=== PATIENT | female | born 1940 | race Caucasian/White ===

== ENCOUNTER 2018-09-07 09:33 | Day surgery (SDC) | payer MEDICARE, OTHER, SELFPAY ==
--- NOTE | 2018-08-31 01:35 | HP_ITS ---
Intake Vital Signs 08/31/18 Height 5 ft 5 in 08/31/18 Weight: 199 lb 08/31/18 Body Mass Index (BMI) 33.1 08/31/18 Blood Pressure 158/72 H 08/31/18 Blood Pressure Location Rt brachial 08/31/18 Blood Pressure Position Sitting 08/31/18 Respiratory Rate 14 08/31/18 Pulse Rate 59 L 08/31/18 Pulse Source Monitor 08/31/18 Temperature 97.7 F L 08/31/18 Temperature Source Oral 08/31/18 Pulse Ox 94 08/31/18 Oxygen Delivery Method room air 08/31/18 Body Mass Index (BMI) 35.4 Intake Visit Reasons: 6 mo f/u abd issue/medication Chief Complaint: Follow-up visit. Allergies ciprofloxacin [From Cipro] Allergy (Verified 12/28/17 13:35) Rash Penicillins [PCN] Allergy (Verified 12/28/17 13:35) Hives Sulfa (Sulfonamide Antibiotics) Allergy (Verified 12/28/17 13:35) Hives hydrocodone [From Vicodin] Adverse Reaction (Verified 12/28/17 13:35) Other lisinopril Adverse Reaction (Verified 12/28/17 13:35) cough meperidine [From Demerol] Adverse Reaction (Verified 12/28/17 13:35) Vomiting beta blockers Adverse Reaction (Uncoded 08/27/17 07:56) fatigue Medications Lorazepam [Ativan] 0.5 mg PO BID PRN PRN 05/13/16 [History Confirmed 08/31/18] aspirin 81 mg tablet,delayed release 81 mg PO QDAY 05/05/17 [History Confirmed 08/31/18] escitalopram 20 mg tablet 20 mg PO QDAY tab 06/10/17 [History Confirmed 08/31/18] omeprazole 20 mg tablet,delayed release 20 mg PO BID 08/27/17 [History Confirmed 08/31/18] losartan 100 mg tablet 100 mg PO DAILY #90 tab 05/30/18 [Rx Confirmed 08/31/18] diltiazem CD 240 mg capsule,extended release 24 hr 240 mg PO QHS #90 cap 07/21/18 [Rx Confirmed 08/31/18] flecainide 150 mg tablet 150 mg PO BID #180 tab 07/25/18 [Rx Confirmed 08/31/18] meloxicam 15 mg tablet 15 mg PO DAILY 08/31/18 [History Confirmed 08/31/18] [facility] Medical History Osteoarthritis (Acute) History of pacemaker (Acute) Anxiety (Acute) Daytime somnolence (Acute) Dysmetabolic syndrome X (Acute) Allergic rhinitis (Acute) Malignant melanoma of skin of trunk, except scrotum (Acute) HTN (hypertension) (Chronic) Paroxysmal atrial fibrillation (Chronic) Sick sinus syndrome (Chronic) Cardiac pacemaker in situ (Chronic 01/29/11) Carotid artery disease (Chronic) Surgical History History of left heart catheterization (LHC) (Chronic) History of total left hip replacement (Chronic 07/13/16) History of total right knee replacement (TKR) (Chronic ~08/2011) History of right hip replacement (Chronic ~2003) History of cholecystectomy (Chronic) History of total left knee replacement (TKR) (Chronic) Family History Grandfather Myocardial infarction Sudden cardiac Father Myocardial infarction CAD (coronary artery disease) CHF (congestive heart failure) Mother Myocardial infarction CAD (coronary artery disease) A-fib Brother A-fib CHF (congestive heart failure) Brother Cancer Son Diabetes Son Hypertension Social History Smoking Status: Never smoker alcohol intake: never substance use type: does not use caffeine: Yes what type of physical activity do you participate in: none seatbelt use: always HPI HPI HPI: MICHAEL MEIER, is a 78 F who presents to the office today for HPI HPI Surgical H&P: Yes HPI: MICHAEL MEIER, is a 78 F who presents to the office today for evaluation for esophagitis. Patient underwent an EGD in June 2017. She was noted to have some mild to severe esophagitis with no bleeding biopsies were negative for Palm's at that time. I was scheduling her to have another repeat EGD June of this year however she is showing up now to continue her follow-up. She still has a significant amount of reflux eructations she has no nausea or vomiting. She is currently on 20 mg of omeprazole a day. She is no longer on her Carafate. ROS General General: Yes weight change and fatigue; no appetite, colon cancer, breast cancer or weakness HEENT HEENT: No difficulty swallowing, eye injury, eye surgery, swollen glands or hoarseness Endo Endocrine: No thyroid disease, diabetes mellitus, thyroid cancer, Hair loss, heat intolerance or cold intolerance Skin Skin: No rash or changing moles Musc Musculoskeletal: Yes back problems and arthritis; no rheumatoid arthritis, gout or joint pain Cardio Cardiovascular: Yes pacemaker, atrial fibrillation and high blood pressure; no murmur, heart disease, heart attack, heart stent, palpitations, shortness of breat with exertion or chest pain Psych Psychiatric: Yes anxiety; no depression or hearing voices Resp Respiratory: No shortness of breath, Yes sleep apnea, No cough, No COPD, No asthma, No emphysema, No wheezing Gastro Gastrointestinal: Yes abdominal pain, Yes nausea or vomiting, Yes diarrhea, No constipation, No blood in stool, Yes acid reflux, Yes hemorrhoids, No ulcers, No gallbladder problem, No black,tarry stools Dirk Hematologic: Yes blood thinners, No blood disorders, No bleeding, No anemia, No blood clots Neuro Neurologic: No weakness Exam Const General: no acute distress, well developed, well hydrated Orientation: oriented to person, oriented to place, oriented to time [facility] Head: normocephalic, atraumatic Ears: external ears normal Mouth: moist mucous membranes Eyes Sclera: sclerae normal Pupils: normal by confrontation Neck Neck: no lymphadenopathy noted Neck mass: No Thyroid: thyroid normal, symmetrical Chest Chest palpation & inspection: normal inspection of the chest Resp Effort & Inspection: normal respiratory effort Auscultation: clear to auscultation bilaterally Percussion: percussion normal Cardio Rate: regular rate Rhythm: regular rhythm Heart Sounds: no murmurs GI Palpation: soft, no hepatosplenomegaly, no masses, nontender Rectal Exam: other Other: Rectal exam deferred. Extrem General: normal to inspection, no clubbing, cyanosis or edema Assessment & Plan Problems 1. Esophagitis K20.9 Plan I have discussed the above with the patient. I have offered the patient esophagogastroduodenoscopy for evaluation. I have explained the risks/benefits of the procedure and described the procedure. I have discussed the risks with the patient, including but not limited to: infection, bleeding, perforation of the GI tract requiring emergency surgery, inability to complete the procedure, injury to any internal organs, complications of anesthesia, etc. - the patient understands and agrees to proceed. I have answered all the patient's questions to the patient's satisfaction and the patient has no further questions. The patient has been given instructions for the colon cleansing preparation. Coding Level of Care Code Off vis,est,level 3 Diagnoses Esophagitis K20.9 08/31/18 1335 <Electronically signed by Ernst Morse MD> Date Ernst Morse MD I have re-examined the patient. There are no clinical changes since date of exam.
[2018-08-31 13:23] VITALS: BMI 33.1
[2018-09-07] VITALS (7 sets, daily range): BP systolic 126–146; BP diastolic 59–68; PULSE 60; RESP 16; TEMP 36.5–37; O2SAT 93–98; BMI 33.8
--- NOTE | 2018-09-07 | GASB_PTH ---
PATIENT: MICHAEL MEIER LOC: EN U#:[id number] AGE/SX: 78/F ROOM: RE09/07/[address]: Dr. Ernst Morse MD : 1940 BED: DIS: 09/07/2018 SPEC #: [id number] RECD: 09/07/18 14:35 STATUS: NIKHIL REMaureen #: [id number] DADA: 09/07/18 00:[address]: Ernst Morse DEPT: SURGICAL PATHOLOGY RECD BY: Gerardo Wagner ENTERED: 09/07/18 14:35 SP TYPE: Gastric Bx OTHR DR: Dr. Michael Puga, DO Tissues: Gastric mucous membrane Procedures: Surgery Specimen Level IV HEADER OPERATION: [place] [place] PRE-OP DIAGNOSIS: Esophagitis TISSUE SUBMITTED: Antral biopsy for H. pylori MICROSCOPIC DIAGNOSIS Antral biopsy: Mild gastritis. See microscopic description and comment. SJ:eric 09/08/18 COMMENT The results of immunohistochemistry for Helicobacter pylori will be reported separately ([id number]). MICROSCOPIC DESCRIPTION Slides are reviewed. The specimen shows fragments of gastric mucosa with chronic inflammatory cell infiltrates in the lamina propria consisting of lymphocytes and plasma cells, consistent with mild chronic gastritis. GROSS DESCRIPTION Received in fixative is one container labeled with the patient's name and designated antral biopsy. The specimen consists of one irregular fragment of light otto soft tissue that measures 0.7 x 0.2 x 0.1 cm. The specimen is totally submitted in one cassette. / SJ:rg 09/07/18 TC:5 CPT: 57766
--- NOTE | 2018-09-07 10:45 | IMM_PTH ---
PATIENT: MICHAEL MEIER LOC: EN U#:[id number] AGE/SX: 78/F ROOM: RE09/07/[address]: Dr. Ernst Morse MD : 1940 BED: DIS: 09/07/2018 SPEC #: [id number] RECD: 09/08/18 09:57 STATUS: NIKHIL REMaureen #: [id number] DADA: 09/07/18 10:[address]: Ernst Morse DEPT: IMMUNOHISTOCHEMISTRY RECD BY: Ritika Martin ENTERED: 09/08/18 09:58 SP TYPE: IMMUNO OTHR DR: Dr. Michael Puga DO Tissues: Stomach, NOS Procedures: H Pylori (initial) PHYSICIAN & INSTITUTION [place] [id number] SPECIMEN INFORMATION: Tissue Source: Antral biopsy Clinical Info: Esophagitis Specimen Number: [id number] CPT code: 48015 METHODOLOGY: Deparaffinized sections of prefer/formalin-fixed tissue or PAP/DQ stained slides are incubated with monoclonal/polyclonal antibodies/oligonucleotide probes. Localization is made via biotin free immunoperoxidase method. Appropriate controls are performed and reacted as expected. Results on target cell population are indicated in the following table: RESULTS: ANTIBODY / CLONE RESULT H Pylori (polyclonal) negative These tests were developed and their performance characteristics determined by [facility]. They may not have been cleared or approved by the U.S. Food and Drug Administration. The FDA has determined that such clearance or approval is not necessary. INTERPRETATION: Antral biopsy: Negative for Helicobacter pylori organisms. SJ:eric 09/08/18
--- NOTE | 2018-09-07 11:05 | OP.ENDO_ITS ---
09/07/2018 Michael Puga [address] [id number] Re : Upper GI endoscopy procedure for Niurka Calderonyuko Dear Dr. Puga This procedure was performed on Friday, September 07, 2018. My impressions and recommendations are as follows: Impressions : - Normal esophagus. - Small hiatal hernia. No specimens collected. - Z-line regular, 40 cm from the incisors. - Normal examined duodenum. No specimens collected. - Erythematous mucosa in the prepyloric region of the stomach. Biopsied. - The examination was otherwise normal. Recommendations : - Await pathology results. - Repeat upper endoscopy in 3 years for surveillance. - Return to my office in 1 week. - Continue aspirin at prior dose. My findings are described in the full procedure note, which is enclosed. If I can be of further assistance, please feel free to contact me at Doctor phone number(s): , Fax: [phone], Work: . Sincerely, MD rEnst Ford MD 09/07/2018 11:05:48 AM This report has been signed electronically.
== END 2018-09-07 11:58 | disposition home or self-care (01) ==
LOC: EN 09:34 → AC 09:36
PROVIDERS: Family Provider Student in an Organized Health Care Education/Training Program; PCP Student in an Organized Health Care Education/Training Program; Referring Provider Surgery; Visit Provider Surgery
PROC: 0DJ08ZZ Inspection of Upper Intestinal Tract, Via Natural or Artificial Opening Endoscopic (ICD-10-PCS; CPT 43235; principal; 2018-09-07 10:40)
DX: K29.70 Gastritis, unspecified, without bleeding (principal); K44.9 Diaphragmatic hernia without obstruction or gangrene; K21.0 Gastro-esophageal reflux disease with esophagitis; I10 Essential (primary) hypertension; I48.0 Paroxysmal atrial fibrillation; Z95.0 Presence of cardiac pacemaker; Z79.82 Long term (current) use of aspirin
CPT/HCPCS: 43239; 88305; 88342; J7120

== ENCOUNTER 2018-12-03 12:45 | Observation (INO) | payer MEDICARE, OTHER, SELFPAY ==
[2018-09-07 09:49] VITALS: BMI 33.8
[2018-12-03] VITALS (9 sets, daily range): BP systolic 140–180; BP diastolic 74–88; PULSE 59–63; RESP 14–17; TEMP 36.4–36.7; O2SAT 94–98; BMI 33.3
--- NOTE | 2018-12-03 13:04 | CT_ITS ---
STUDY: CT BRAIN WITHOUT CONTRAST REASON FOR EXAM: Female, 78 years old. APHASIA-symptoms improving since 0530 RADIATION DOSAGE (If Supplied By Facility): CTDIvol = ( 44.99 ) mGy, DLP = ( 796.11 ) mGycm TECHNIQUE: Transaxial CT imaging of the brain was performed without administration of intravenous contrast material. Individualized dose optimization techniques were used for this CT. COMPARISON: No relevant priors. FINDINGS: Normal size ventricles and extra-axial spaces for the patient's age. Normal white matter tracts of the cerebral hemispheres. Normal basal ganglia and thalami. Normal brainstem. Normal cerebellum. There is no intracranial hemorrhage. There are no findings of an acute ischemic infarction. Normal visualized paranasal sinuses. CT/Brain/Head without Contrast IMPRESSION: No acute intracranial abnormality Electronically Signed: Brook Wong MD at 13:44 EDT Tel , Service support ,
--- NOTE | 2018-12-03 13:05 | EKG12_ITS ---
Test Reason : NEURO Blood Pressure : / mmHG Vent. Rate : 060 BPM Atrial Rate : 060 BPM P-R Int : 244 ms QRS Dur : 110 ms QT Int : 466 ms P-R-T Axes : 000 003 044 degrees QTc Int : 466 ms Atrial-paced rhythm with prolonged AV conduction Abnormal ECG Confirmed by RAYMUNDO DEAN ([id number]), movie editor SUSIE COY ([id number]) on 12/07/2018 3:28:16 PM Referred By: Hayley Jerome Confirmed By:RAYMUNDO DEAN
--- NOTE | 2018-12-03 13:09 | ED.DCSUM_ITS ---
History of Present Illness <Nahum Melo - Last Filed: 12/03/18 14:42> Informant: Patient, Family Onset: Today Current Severity: Mild Maximum Severity: Mild Narrative: Niurka is a 78-year female who tripped this morning and fell. She denies hitting her head or loss of conscious. This was at 530 this morning and she called her daughters and they noted her to have slurred speech. She states she usually takes them but she cannot find their numbers which is unusual for her. Her chief complaint now is that her speech is slow and she has trouble remembering things. 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 She is not on blood thinners but does have a pacemaker for A. fib. Denies headache or dizziness or focal weakness or paresthesia. She did noted blurred vision to both eyes at midnight when she went to bed. Prior similar symptoms: No Recent Illness/Hospitalization: No <Lisa Eli - Last Filed: 12/03/18 15:00> Chief Complaint: Neuro S/Sx Past Medical History <Nahum Melo - Last Filed: 12/03/18 14:42> Surgical History: appendectomy, cholecystectomy, hysterectomy, tonsillectomy, - - Excision of melanoma, bilateral total knee replacements in 2009, right total hip in 2003 and left total hip recently in 2017. Smoking Status: Never smoker <Lisa Eli - Last Filed: 12/03/18 15:00> - Allergies and Home Meds Allergies/Adverse Reactions: Allergies ciprofloxacin [From Cipro] Allergy (Verified 09/15/18 13:38) Rash Penicillins [PCN] Allergy (Verified 09/15/18 13:38) Hives Sulfa (Sulfonamide Antibiotics) Allergy (Verified 09/15/18 13:38) Hives hydrocodone [From Vicodin] Adverse Reaction (Verified 09/15/18 13:38) Other lisinopril Adverse Reaction (Verified 09/15/18 13:38) cough meperidine [From Demerol] Adverse Reaction (Verified 09/15/18 13:38) Vomiting beta blockers Adverse Reaction (Uncoded 08/27/17 07:56) fatigue Primary Care Physician: Michael Puga DO [Primary Care Provider] - Review of Systems General: Denies: Chills, Fever Eyes: Reports: Visual changes - bilaterally - Around midnight she noticed wavy vision to both eyes. When she awoke this morning at 530 it had resolved.. Denies: Blurred vision - left, Blurred vision - right Cardiovascular: Denies: Chest pain, Palpitations Respiratory: Denies: Dyspnea, Cough, Sputum Gastrointestinal: Denies: Abdominal pain, Nausea, Vomiting Genitourinary: Denies: Dysuria, Hematuria Musculoskeletal: Denies: Myalgias, Arthralgias Neurological: Reports: - - There is no evidence of slurred speech here. NIH score was 1 4 mild expressive aphasia. Some of her answers were delayed this took her longer to think of her response.. There is no unilateral weakness appreciated.. Denies: Headache, Weakness, Parasthesia, Numbness <Lisa Eli - Last Filed: 12/03/18 15:00> Physical Exam Vital Signs/Narrative: Vital Signs Temp Pulse Resp BP Pulse Ox 12/03/18 14:12 60 15 167/76 H 97 12/03/18 12:55 142/80 H 12/03/18 12:47 98.0 F 60 17 153/83 H 98 <Nahum Melo - Last Filed: 12/03/18 14:42> Vital Signs/Narrative: Vital Signs Temp Pulse Resp BP Pulse Ox 12/03/18 12:55 142/80 H 12/03/18 12:47 98.0 F 60 17 153/83 H 98 Inital Vital Signs reviewed: Yes General: Well nourished, Well developed Head: Normocephalic, Atraumatic Eyes: Perrl, EOMI, Pale conjunctiva ENT: Moist mucous membranes, No rhinorrhea, Nasal congestion, Sinus tenderness Cardiovascular: Regular rate, Regular rhythm, No murmurs Respiratory: No distress, CTA bilaterally Abdomen: Soft, Nontender, Nondistended Back: Nontender, Normal Inspection Extremities: Nontender, No edema. Negative for: Tenderness Skin: Normal color, No rash Neurological: Alert, Oriented x3, Cranial nerves II-XII grossly intact, Normal Strength. Negative for: Confused, Lethargic, Parasthesia, Weakness, Left side facial droop - Some of her responses are delayed but her speech is clear and there was no unilateral weakness. NIH score equals 1 for mild expressive aphasia, Right side facial droop Psychological: Normal affect, Normal Mood <Lisa Eli - Last Filed: 12/03/18 15:00> Diagnostic/Tx/Re-eval - Medical Decision Making Evaluated this patient with our DENTAL RESIDENT. 78-year-old female with reported slurred speech and dysarthria this morning. No prior history of a TIA or CVA. She does have a history of a pacemaker and history of prior A. fib but currently on no anticoagulation. Currently she states she is back to her baseline. And her speech is resolved. Elderly female no acute distress. Vital signs are stable. HEENT exam unremarkable. Normal speech. No facial droop. Tongue midline. Lungs clear to auscultation. Heart paced rhythm. Abdomen soft and nontender. Extremities moves all 4. Neurovascular intact. Equal symmetrical 5 out of 5 anesthesiologist physician strength. Dorsi plantarflexion intact. Neurologically she is awake and alert. She has essential tremors in both hands. But her NIH score currently is 0. Stroke work-up was basically unremarkable. Discussed with the patient. She is comfortable being admitted here for further work-up for possible TIA. I also discussed this with the hospitalist and the patient will be admitted to the PCU. Impression: 1. Dysarthria and slurred speech resolved (TIA) <Nahum Melo - Last Filed: 12/03/18 14:42> CT head showed no acute process per radiology. - EKG Initial EKG Interpretation: - - EKG atrial paced rhythm with prolonged AV conduction Ventricular rate is 60 LA interval is 244 QRS duration is 110 QT/QTc 466/466 No acute changes from May 2017. No acute STEMI or ectopy. - Medical Decision Making Because of the slurred speech and dysarthria she had a stroke work-up. Her NIH score was 1 and she was not a candidate for TPA because her symptoms were already improving. She is not on any blood thinner other than baby aspirin daily. She complains of being anxious and she was given 0.5 of lorazepam by mouth as she usually takes this at home. She did pass a bedside swallow test. She remained neurologically intact and her mild expressive aphasia resolved. Laboratory tests and EKG are unremarkable as well. Hospitalist was notified and patient will be admitted to continue her stroke work-up. Impression dysarthria and reported slurred speech resolved <Lisa Eli - Last Filed: 12/03/18 15:00> ED Disposition <Nahum Melo - Last Filed: 12/03/18 14:42> <Lisa Eli - Last Filed: 12/03/18 15:00> - Plan for ED Patient: Referrals: Michael Puga DO [Primary Care Provider] -
[2018-12-03 13:21] LABS: Bedside Glucose 92 mg/dL (70-110)
[2018-12-03 13:29] LABS: Absolute Lymphocyte Count 1.29 X10^3/uL (0.83-4.51); Basophil# 0.04 X10^3/uL; Basophil% 0.5 % (0-1); Eosinophil# 0.09 X10^3/uL; Eosinophils% 1.1 % (0-5); Hematocrit 42.9 % (37-47); Hemoglobin 14.4 g/dL (12.0-15.0); Lymphocyte # 1.29 X10^3/ul (4.0); Lymphocyte % 15.8 % (19-41); Mean Corp Hgb Conc 33.6 g/dL (32-36); Mean Corpuscular Hgb 29.7 pg (27.0-32.0); Mean Corpuscular Volume 88.5 fL (81-99); Mean Platelet Vol. 11.1 fl (6.2-12.0); Monocyte% 8.6 % (0-10); NRBC Flagged by Analyzer 0 % (0-5); Neutrophil % 73.8 % (47-70); Platelet Count 214 K/mm3 (150-450); RBC Distribution Width CV 13.2 % (11.6-14.6); RBC Distribution Width SD 43.1 fl (35.1-43.9); Red Blood Count 4.85 M/mm3 (4.2-5.4); White Blood Count 8.1 K/mm3 (4.4-11.0)
[2018-12-03 13:36] LABS: Partial Thromboplast Time 27.2 Seconds (24.1-36.2); Prothrombin Time (Protime)PT. 13.4 SECONDS (11.7-14.9)
[2018-12-03 13:42] LABS: Anion Gap 7 (5-15); BUN 15 mg/dL (7-18); BUN/Creat Ratio 22.4 RATIO (10-20); Calcium,Total 8.9 mg/dL (8.5-10.1); Chloride 105 mmol/L (98-107); Creatinine, Serum 0.67 mg/dL (0.55-1.02); EST Glomerular Filtration Rate 91 mL/min (>60); Est Glom Filt Rate - Afr Amer 110 mL/min (>60); Estimated Creatinine Clearance 42.39 ml/min; Glucose 96 mg/dL (74-106); Potassium 3.8 mmol/L (3.5-5.1); Sodium Level 139 mmol/L (136-145)
[2018-12-03] MEDS: LORazepam 0.5 MG Tablet PO (14:10)
--- NOTE | 2018-12-03 14:40 | HP.PCM_ITS ---
History of Present Illness Date of Admission: 12/03/18 Chief Complaint: difficulty finding words The patient is a 78 year old F with an extensive past medical history as listed which includes paroxysmal A. fib and sick sinus syndrome status post pacemaker. Patient was admitted through the ED on 12/03/2018 with a complaint of difficulty finding words since this morning. Patient also states that she has chronic balance problems and sustained a fall today after tripping over something. She notices that she was having difficulty finding words to say what she wanted to say. She also complained of blurred vision but states this is chronic due to an eye infection that she had about a few weeks ago. She denied any numbness or tingling but noted that she had been having increasing tremors of her upper extremities which had been going on for the past few weeks. Review of systems otherwise negative. 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 Review of systems otherwise negative. Vitals only significant for mildly elevated blood pressure of 167/76. CBC was unremarkable and BMP was also unremarkable. Brain CT was negative for any acute intracranial pathology. Of note, patient is due to have her pacemaker checked this month. She has been admitted to be managed for TIA. [] Past Medical History Past Medical History (Chronic Problems): Chronic Problems (Last Updated 09/15/18 @ 13:40 by Gloria Vivra) History of left heart catheterization (LHC) (Chronic) 05/2011 History of total left hip replacement (Chronic 07/13/16) History of total right knee replacement (TKR) (Chronic ~08/2011) History of right hip replacement (Chronic ~2003) 2003; 2004 History of cholecystectomy (Chronic) History of total left knee replacement (TKR) (Chronic) Depression (Chronic) HTN (hypertension) (Chronic) Paroxysmal atrial fibrillation (Chronic) Sick sinus syndrome (Chronic) Cardiac pacemaker in situ (Chronic 01/29/11) Carotid artery disease (Chronic) Medical History: Medical History (Last Updated 09/15/18 @ 13:40 by Gloria Vivar) Osteoarthritis (Acute) M19.90 History of pacemaker (Acute) Z95.0 Anxiety (Acute) F41.9 Daytime somnolence (Acute) R40.0 Dysmetabolic syndrome X (Acute) E88.81 Allergic rhinitis (Acute) J30.9 Malignant melanoma of skin of trunk, except scrotum (Acute) C43.59 HTN (hypertension) (Chronic) I10 Paroxysmal atrial fibrillation (Chronic) I48.0 Sick sinus syndrome (Chronic) I49.5 Cardiac pacemaker in situ (Chronic) Onset Date: 01/29/11 Z95.0 Carotid artery disease (Chronic) I77.9 Gastritis Onset Date: ~09/07/18 K29.70 Allergies ciprofloxacin [From Cipro] Allergy (Verified 09/15/18 13:38) Rash Penicillins [PCN] Allergy (Verified 09/15/18 13:38) Hives Sulfa (Sulfonamide Antibiotics) Allergy (Verified 09/15/18 13:38) Hives hydrocodone [From Vicodin] Adverse Reaction (Verified 09/15/18 13:38) Other lisinopril Adverse Reaction (Verified 09/15/18 13:38) cough meperidine [From Demerol] Adverse Reaction (Verified 09/15/18 13:38) Vomiting beta blockers Adverse Reaction (Uncoded 08/27/17 07:56) fatigue Home Medications: Ambulatory Orders Medication Instructions Recorded Lorazepam [Ativan] 0.5 mg PO BID PRN PRN 05/13/16 aspirin 81 mg tablet,delayed 81 mg PO QDAY 05/05/17 release escitalopram 20 mg tablet 20 mg PO QDAY tab 06/10/17 omeprazole 20 mg tablet,delayed 20 mg PO BID 08/27/17 release losartan 100 mg tablet 100 mg PO DAILY #90 tab 05/30/18 diltiazem CD 240 mg 240 mg PO QHS #90 cap 07/21/18 capsule,extended release 24 hr flecainide 150 mg tablet 150 mg PO BID #180 tab 07/25/18 meloxicam 15 mg tablet 15 mg PO PRN PRN 08/31/18 Surgical History: Surgical History (Last Updated 09/15/18 @ 13:39 by Gloria Vivar) History of left heart catheterization (LHC) (Chronic) Z98.890 05/2011 History of total left hip replacement (Chronic) Onset Date: 07/13/16 Z96.642 History of total right knee replacement (TKR) (Chronic) Onset Date: ~08/2011 Z96.651 History of right hip replacement (Chronic) Onset Date: ~2003 Z96.641 2003; 2004 History of cholecystectomy (Chronic) Z98.890, Z90.49 History of total left knee replacement (TKR) (Chronic) Z96.652 History of esophagogastroduodenoscopy (EGD) Onset Date: ~09/07/18 Z98.890 Surgical History: appendectomy, cholecystectomy, hysterectomy, tonsillectomy, - - Excision of melanoma, bilateral total knee replacements in 2009, right total hip in 2003 and left total hip recently in 2017. 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 Smoking Status: Never smoker - *Family History Maternal Family History: Family History (Last Reviewed 09/15/18 @ 13:39 by Gloria Vivar) Grandfather Myocardial infarction Sudden cardiac Father Myocardial infarction CAD (coronary artery disease) CHF (congestive heart failure) Mother Myocardial infarction CAD (coronary artery disease) A-fib Brother A-fib CHF (congestive heart failure) Brother Cancer Son Diabetes Son Hypertension Review of Systems Constitutional: Denies: Chills, Fever, Malaise, Weakness, Weight Change, Fatigue Eyes: Reports: Blurred vision - due to eye infection and has been going on for a week now HEENT: Denies: Head Aches, Sinus Congestion, Sinus Drainage Cardiovascular: Denies: Chest Pain, Chest Pressure, Palpitations Respiratory: Denies: Cough, Shortness of Breath, Shortness of breath at rest, Sputum production Gastrointestinal: Denies: Abdominal Pain, Nausea, Vomiting Genitourinary: Denies: Dysuria Musculoskeletal: Denies: Joint Pain, Joint Tenderness Skin: Denies: Rash, Wounds Neurological: Reports: Balance problems - chronic, Change in Speech - difficulty finding words, Tremor. Denies: Double vision, Confusion, Focal weakness, Numbness, Tingling Psychiatric: Reports: Homicidal Ideations Hematologic/ Lymphatic: Denies: Easy Bruising, Easy Bleeding VTE Information - Inpt Only VTE Present on Admission: No VTE Pharm Prophylaxis ordered?: Yes - Physical Exam General: Alert, Oriented x3, Cooperative, No apparent distress HEENT: Atraumatic, PERRLA, EOMI, Normocephalic Oral: Moist Mucosa Neck: Supple, No JVD, Negative Carotid Bruits Lungs: Clear to auscultation, Normal air movement, No rhonchi, No wheeze, No rales Cardiovascular: Regular rate, Regular Rhythm, Normal S1, Normal S2, No murmurs Abdomen: Bowel Sounds Present, Soft, Non Tender, Non-Distended, No Hepato- splenomegaly Extremities: No clubbing, No cyanosis, No edema, Capillary Refill Less than 3 Seconds Skin: No rashes, No breakdown Musculoskeletal: No Tenderness to Palpation of Joints or Extremities Lymphatic: No Cervical, Supraclavicular, or Inguinal Adenopathy Neurological: Cranial nerves II-XII grossly intact, Sensory exam intact to light touch and pain, - - mild expressive aphasia. Mild right foot drop Psych/Mental Status: Normal Affect, Appropriate, Alert and oriented to time, place, person, mood and affect Vital Signs Temp Pulse Resp BP Pulse Ox 98.0 F 60 15 167/76 H 97 12/03/18 12:47 12/03/18 14:12 12/03/18 14:12 12/03/18 14:12 12/03/18 14:12 Oxygen Delivery Method Room Air Weight: 200 lb 6.403 oz Body Mass Index (BMI) 33.3 Finger Stick Blood Glucose 92 Laboratory Tests Past 24 Hrs 12/03/18 12/03/18 12/03/18 12:48 12:48 12:48 WBC 8.1 RBC 4.85 Hgb 14.4 Hct 42.9 MCV 88.5 MCH 29.7 MCHC 33.6 RDW Std Deviation 43.1 RDW Coeff of Chandu 13.2 Plt Count 214 MPV 11.1 Immature Gran % (Auto) 0.200 Neut % (Auto) 73.8 H Lymph % (Auto) 15.[address] [facility] % (Auto) 8.6 Eos % (Auto) 1.1 Baso % (Auto) 0.5 Absolute Neuts (auto) 6.0 Absolute Lymphs (auto) 1.29 Nucleated RBC % 0 PT 13.4 INR 1.0 APTT 27.2 Sodium 139 Potassium 3.8 Chloride 105 Carbon Dioxide 27.0 Anion Gap 7 BUN 15 Creatinine 0.67 Estim Creat Clear Calc 42.39 Est GFR (MDRD) Af Amer 110 Est GFR (MDRD) Non-Af 91 BUN/Creatinine Ratio 22.4 H Glucose 96 Calcium 8.9 POC Glucose 12/03/18 12:58 POC Glucose [address] 12/03/18 13:04 IMPRESSION: No acute intracranial abnormality Electronically Signed: Brook Wong MD at 13:44 EDT Tel , Service support , Assessment/Plan All Active Problems (Last Updated 09/15/18 @ 13:40 by Gloria Vivar) Osteoarthritis (Acute) History of pacemaker (Acute) Anxiety (Acute) Daytime somnolence (Acute) Dysmetabolic syndrome X (Acute) Allergic rhinitis (Acute) Malignant melanoma of skin of trunk, except scrotum (Acute) Hyperlipidemia (Acute) Shortness of breath (Acute) Abnormal electrocardiogram (Acute) Hypokalemia (Acute) FH: sudden cardiac (SCD) (Acute) Family history of hypertension (Acute) Colitis (Acute) 78 y/o patient admitted with a complaint of expressive aphasia 1. TIA * admitted with difficulty finding words * NIHSS- * CT brain was negative * EKG showed paced rhythm * admit to PCU with telemetry * neurochecks * swallow evaluation * PO aspirin 81mg daily * check lipid panel and A1C * patient counselled that there is no neurology coverage over the weekend. However, she wants to stay in [place]; she understands that if she develops an acute stroke, she will need to be transferred to a tertiary care center * keep BP<130/80 * PT/OT consult * 2D echo * patient cannot have MRI o/a of the pacemaker * 2. PAroxysmal afib: rate controlled. On cardizem and flecainide. NOt on anticoagulation due to history of GI Bleeds, per last cardiology note. 3. Hyerptension: on losartan. IV hydralazine prn 4. History of sick sinus syndrome: s/p pacemaker. Last pacemaker check was in 07/19. Says she is due to have pacemaker check this month. 5. Depression and anziety: on lexapro and lorazepam DVT prophylaxis: heparin Code status: full code. * Patient counseled extensively about different types of CODE STATUS including full code, DNR CCA and DNR CCA. Patient elects to be full code. Total [id number] time 17 minutes. Code Visit OBSV E&M: 71038 Initial observation care L3 Procedures: 24252 Advncd Care Plan 30 Min
--- NOTE | 2018-12-03 14:44 | NURSING ---
CHERRI ROBLES ESTHER
--- NOTE | 2018-12-03 15:31 | CT_ITS ---
STUDY: CTA HEAD AND NECK WITH CONTRAST REASON FOR EXAM: Female, 78 years old. TIA RADIATION DOSAGE (If Supplied By Facility): CTDIvol = ( 20.12 ) mGy, DLP = ( 745.86 ) mGycm TECHNIQUE: CT angiography was performed with a multi-detector CT scanner. Data acquisition was obtained from the skull base through the vertex following intravenous administration of 100CC IV/Oral Isovue 370. MIP images were reconstructed from the axial data set. Post-processing of the angiographic images was performed, with multiplanar reformation and 3D reconstruction. Individualized dose optimization techniques were used for this CT. COMPARISON: No relevant priors. FINDINGS: Normal bilateral petrous carotid arteries. Normal right cavernous carotid artery with a normal supraclinoid bifurcation. Normal left cavernous carotid artery with a normal supraclinoid bifurcation. Normal right A1 segments of the anterior cerebral artery. Normal left A1 segments of the anterior cerebral artery. Normal intact anterior communicating artery (ACOM). Normal bilateral A2 segments of the anterior cerebral arteries. Normal right M1 and M2 segments of the middle cerebral arteries, with a normal M1 bifurcation. Normal left M1 and M2 segments of the middle cerebral arteries, with a normal M1 bifurcation. 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 Normal left posterior communicating artery (PCOM). There is a small atretic right vertebral artery with a dominant left vertebral artery. Normal basilar artery with a normal basilar bifurcation. The visualized bilateral superior cerebellar (SCA) arteries are normal. Normal bilateral P1, P2 and visualized P3 segments of the posterior cerebral arteries. There is no demonstrated aneurysm of the hoh of [place]. There is no demonstrated abnormality of the visualized brain. AORTIC ARCH: Normal visualized aortic arch. Normal origins of the brachiocephalic, left common carotid, and left subclavian arteries. RIGHT CAROTID ARTERIES: Normal right common carotid artery (CCA). Normal right common carotid bulb. Normal origin of the right internal carotid (ICA) artery without a hemodynamically significant stenosis. Normal visualized cervical portion of the right internal carotid artery. Normal origin of the right external carotid artery (ECA). LEFT CAROTID ARTERIES: Normal left common carotid artery (CCA). Normal left common carotid bulb. Normal origin of the left internal carotid (ICA) artery without a hemodynamically significant stenosis. Normal visualized cervical portion of the left internal carotid artery. Normal origin of the left external carotid artery (ECA). VERTEBRAL ARTERIES: There is enhancement within the bilateral vertebral arteries with a small right vertebral artery, and a dominant left vertebral artery. CT/CTA Head AND Neck W/ Contrast IMPRESSION: Normal CTA Head and neck with contrast. Electronically Signed: Gilberto Nesbitt MD at 17:07 EDT , Service support ,
[2018-12-03 16:00] LABS: Cholesterol 198 mg/dL (200); High Density Lipoprotein 75 mg/dL; Triglycerides 70 mg/dL; Very Low Density Lipoprotein 14 mg/dL (5-40)
[2018-12-03 16:22] LABS: Hemoglobin A1c 5.2 % (4.2-6.3)
[2018-12-03] MEDS: dilTIAZem CD 240 MG Capsule PO (21:25)
[2018-12-03] MEDS: Pantoprazole Sodium 20 MG Tablet PO (21:25)
[2018-12-03] MEDS: Flecainide 150 MG Tablet PO (21:25)
[2018-12-03] MEDS: Escitalopram Oxalate 20 MG Tablet PO (21:32)
[2018-12-04] MEDS: Gabapentin 300 MG Capsule PO ×2 (00:19→05:43)
[2018-12-04 00:34] VITALS: BP 168/77; PULSE 61; RESP 15; TEMP 36.5; O2SAT 95
[2018-12-04 02:01] VITALS: BMI 33.3
[2018-12-04 03:00] VITALS: PULSE 60
[2018-12-04 04:30] VITALS: BP 121/56; PULSE 60; RESP 15; TEMP 36.6; O2SAT 96
[2018-12-04 05:37] LABS: Absolute Lymphocyte Count 1.53 X10^3/uL (0.83-4.51); Absolute Neutrophil Count 4.6 X10^3/uL (2.0-7.7); Basophil# 0.06 X10^3/uL; Basophil% 0.9 % (0-1); Eosinophil# 0.13 X10^3/uL; Eosinophils% 1.8 % (0-5); Hematocrit 39.3 % (37-47); Hemoglobin 13.2 g/dL (12.0-15.0); Lymphocyte # 1.53 X10^3/ul (4.0); Lymphocyte % 21.7 % (19-41); Mean Corp Hgb Conc 33.6 g/dL (32-36); Mean Corpuscular Hgb 30.1 pg (27.0-32.0); Mean Corpuscular Volume 89.7 fL (81-99); Mean Platelet Vol. 10.5 fl (6.2-12.0); Monocyte# 0.73 X10^3/uL; Monocyte% 10.4 % (0-10); NRBC Flagged by Analyzer 0 % (0-5); Neutrophil # 4.57 X10^3/uL (2.7-7.7); Neutrophil % 64.9 % (47-70); Platelet Count 179 K/mm3 (150-450); RBC Distribution Width CV 13.4 % (11.6-14.6); Red Blood Count 4.38 M/mm3 (4.2-5.4)
[2018-12-04 05:52] LABS: Anion Gap 7 (5-15); BUN 12 mg/dL (7-18); BUN/Creat Ratio 23.1 RATIO (10-20); Calcium,Total 8.4 mg/dL (8.5-10.1); Chloride 107 mmol/L (98-107); Creatinine, Serum 0.52 mg/dL (0.55-1.02); EST Glomerular Filtration Rate 121 mL/min (>60); Est Glom Filt Rate - Afr Amer 147 mL/min (>60); Estimated Creatinine Clearance 42.39 ml/min; Glucose 93 mg/dL (74-106); Potassium 3.9 mmol/L (3.5-5.1); Sodium Level 142 mmol/L (136-145)
[2018-12-04 07:00] VITALS: PULSE 60
[2018-12-04] MEDS: Flecainide 150 MG Tablet PO (08:11)
[2018-12-04] MEDS: Pantoprazole Sodium 20 MG Tablet PO (08:11)
[2018-12-04] MEDS: Losartan Potassium 100 MG Tablet PO (08:11)
[2018-12-04] MEDS: Aspirin E.C. 81 MG Tablet PO (08:11)
[2018-12-04 09:05] VITALS: BP 132/63; PULSE 60; RESP 16; TEMP 36.7; O2SAT 95
--- NOTE | 2018-12-04 10:35 | PCM.DC ---
You will use the following diet at home:: Cardiac Your food should be the consistency of: Regular Your liquids should be the consistency of: Regular/Thin Discharge Activity: Return to Normal Activity Weight Bearing Status: Weight bearing as tolerated Call your doctor if you observe: Numbness or Tingling, Dizziness, Fainting spells, Swelling in the ankles, - - change in speech Instructions: What Is a TIA? Additional Instructions: to have 2D echo tomorrow; if you have any bleeding per rectum or vomit blood or dark coffee ground substance, to stop eliquis and go to the ED. Allergies/Adverse Reactions: Allergies ciprofloxacin [From Cipro] Allergy (Verified 09/15/18 13:38) Rash Penicillins [PCN] Allergy (Verified 09/15/18 13:38) Hives Sulfa (Sulfonamide Antibiotics) Allergy (Verified 09/15/18 13:38) Hives hydrocodone [From Vicodin] Adverse Reaction (Verified 09/15/18 13:38) Other lisinopril Adverse Reaction (Verified 09/15/18 13:38) cough meperidine [From Demerol] Adverse Reaction (Verified 09/15/18 13:38) Vomiting beta blockers Adverse Reaction (Uncoded 08/27/17 07:56) fatigue Medications to take at Discharge Lorazepam [Ativan] 0.5 mg PO BID PRN PRN 05/13/16 aspirin 81 mg tablet,delayed release 81 mg PO QDAY 05/05/17 escitalopram 20 mg tablet 20 mg PO QDAY tab 06/10/17 omeprazole 20 mg tablet,delayed release 20 mg PO BID 08/27/17 losartan 100 mg tablet 100 mg PO DAILY #90 tab 05/30/18 diltiazem CD 240 mg capsule,extended release 24 hr 240 mg PO QHS #90 cap 07/21/18 flecainide 150 mg tablet 150 mg PO BID #180 tab 07/25/18 Gabapentin [Neurontin] 300 mg PO TID 12/03/18 Apixaban [Eliquis] 5 mg PO BID #60 tab 12/04/18 The following prescriptions were given: Apixaban [Eliquis] 5 mg PO BID #60 tab Transmission Status: Pending to [facility] [id number] Orders to be completed after discharge: Echo Complete [ECHO] Time Frame: 12/05/18, Location: None Selected Primary Care Physician: Michael Puga DO [Primary Care Provider] - Please follow up with your Primary Care Physician in: within 1-2 weeks Test Results: Test results from this visit will be discussed in further detail at your follow-up appointment, if applicable. Please Follow Up With: Osvaldo Lyles MD When: 1-2 weeks; call office for appointment Please Follow Up With: Alfa Bermeo MD When: 1-2 weeks; please call office for appointment Proposed Discharge Date: 12/04/18
--- NOTE | 2018-12-04 10:38 | PCM.DC.SUM ---
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 knee replacement (TKR) (Chronic ~08/2011) History of right hip replacement (Chronic ~2003) 2003; 2004 History of cholecystectomy (Chronic) History of total left knee replacement (TKR) (Chronic) Depression (Chronic) HTN (hypertension) (Chronic) Paroxysmal atrial fibrillation (Chronic) Sick sinus syndrome (Chronic) Cardiac pacemaker in situ (Chronic 01/29/11) Carotid artery disease (Chronic) Hospital Course and Treatment Imaging Results: Diagnostic Data Brain CT 12/03/18 13:04 IMPRESSION: No acute intracranial abnormality Electronically Signed: Brook Wong MD at 13:44 EDT Tel , Service support , Head/Neck CTA 12/03/18 15:31 IMPRESSION: Normal CTA Head and neck with contrast. Electronically Signed: Gliberto Nesbitt MD at 17:07 EDT , Service support , Operations: None Procedures: None Summary of Care Provided: The patient is a 78 year old F with an extensive past medical history as listed which includes paroxysmal A. fib and sick sinus syndrome status post pacemaker. Patient was admitted through the ED on 12/03/2018 with a complaint of difficulty finding words since this morning. Patient also states that she has chronic balance problems and sustained a fall today after tripping over something. She notices that she was having difficulty finding words to say what she wanted to say. She also complained of blurred vision but states this is chronic due to an eye infection that she had about a few weeks ago. She denied any numbness or tingling but noted that she had been having increasing tremors of her upper extremities which had been going on for the past few weeks. Review of systems otherwise negative. 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 Review of systems otherwise negative. Vitals only significant for mildly elevated blood pressure of 167/76. CBC was unremarkable and BMP was also unremarkable. Brain CT was negative for any acute intracranial pathology. Of note, patient is due to have her pacemaker checked this month. She was admitted to be managed for TIA. She had a CTA of the head and neck with contrast which was also negative. Patient couldnt have MRI o/a of the brain o.a of her having a pacemaker. Her symptoms resolved completely, and NIHSS at time of discharge was 1. Patient had not been on any anticoagulation for afib o/a of a Gi bleed last year. Further review showed that she had presented with a picture of colitis in May 2017, with some rectal bleeding, which spontaneously resolved and hasnt recurred since. Colonoscopy done was negative. EGD showed mild gastritis and repeat EGD on 09/07/09 showed erythematous mucosa in prepyloric region of upper stomach, biopsy of which showed mild gastritis. Need for oral anticoagulation as stroke prophylaxis in setting of suspected TIA was discussed with Dr Lyles (covering for Dr Hickey) and with patient. Decision made to start anticoagulation, as the benefits outweighed the risks in this case. Patient was therefore started on PO eliquis 5mg bid. She is to follow-up closely with her primary care doctor, cardiology and general surgery. Patient to have an outpatient echocardiogram on 12/05/2018 which is to be sent to the Dr. Lyles. She is also to have her pacemaker checked by cardiology this month as originally scheduled. Patient seen and examined prior to discharge. She had no complaints and felt much better. She had not had any problems with finding words overnight. Review of systems is otherwise negative. Labs and vitals reviewed. Home medications reviewed and reconciled. o/e: Vital Signs Height 5 ft 5 in Weight: 200 lb Weight in Pounds 200.0 lbs Pulse Ox 98 Temperature 98.1 F Pulse Rate 56 Respiratory Rate 16 Blood Pressure [BP] 147/72 Blood Pressure 132/63 Blood Pressure Position [BP] Semi-Fowlers Blood Pressure Position Semi-Fowlers General: Alert, Oriented x3, Cooperative, No apparent distress HEENT: Atraumatic, PERRLA, EOMI, Normocephalic Oral: Moist Mucosa Neck: Supple, No JVD, Negative Carotid Bruits Lungs: Clear to auscultation, Normal air movement, No rhonchi, No wheeze, No rales Cardiovascular: Regular rate, Regular Rhythm, Normal S1, Normal S2, No murmurs Abdomen: Bowel Sounds Present, Soft, Non Tender, Non-Distended, No Hepato-splenomegaly Extremities: No clubbing, No cyanosis, No edema, Capillary Refill Less than 3 Seconds Skin: No rashes, No breakdown Musculoskeletal: No Tenderness to Palpation of Joints or Extremities Lymphatic: No Cervical, Supraclavicular, or Inguinal Adenopathy Neurological: Cranial nerves II-XII grossly intact, Sensory exam intact to light touch and pain, - -expressive aphasia has resolved. Mild right foot drop which is chronic Psych/Mental Status: Normal Affect, Appropriate, Alert and oriented to time, place, person, mood and affect Patient counseled to stop taking aspirin, as she had been started on eliquis. Rest of management as above. She was also referred to neurology- Dr Bermeo - Physical Exam Vital Signs Temp Pulse Resp BP Pulse Ox 98.1 F 60 16 132/63 H 95 12/04/18 09:05 12/04/18 09:05 12/04/18 09:05 12/04/18 09:05 12/04/18 09:05 Oxygen Delivery Method Room Air Weight: 200 lb Body Mass Index (BMI) 33.3 Finger Stick Blood Glucose 92 Intake and Output for Last 24 Hours 12/02/18 12/03/18 12/04/18 23:59 23:59 23:59 Intake Total 360 / 360 60 / 60 Balance 360 / 360 60 / 60 Laboratory Tests Past 24 Hrs 12/03/18 12/03/18 12/03/18 12:48 12:48 12:48 WBC 8.1 RBC 4.85 Hgb 14.4 Hct 42.9 MCV 88.5 MCH 29.7 MCHC 33.6 RDW Std Deviation 43.1 RDW Coeff of Chandu 13.2 Plt Count 214 MPV 11.1 Immature Gran % (Auto) 0.200 Neut % (Auto) 73.8 H Lymph % (Auto) 15.8 L Branch % (Auto) 8.6 Eos % (Auto) 1.1 Baso % (Auto) 0.5 Absolute Neuts (auto) 6.0 Absolute Lymphs (auto) 1.29 Nucleated RBC % 0 PT 13.4 INR 1.0 APTT 27.2 Sodium 139 Potassium 3.8 Chloride 105 Carbon Dioxide 27.0 Anion Gap 7 BUN 15 Creatinine 0.67 Estim Creat Clear Calc 42.39 Est GFR (MDRD) Af Amer 110 Est GFR (MDRD) Non-Af 91 BUN/Creatinine Ratio 22.4 H Glucose 96 Hemoglobin A1c Calcium 8.9 Triglycerides Cholesterol LDL Cholesterol VLDL Cholesterol HDL Cholesterol 12/03/18 12/03/18 12/04/18 13:24 13:24 04:55 WBC 7.0 RBC 4.38 Hgb 13.2 Hct 39.3 MCV 89.7 MCH 30.1 MCHC 33.6 RDW Std Deviation 44.0 H RDW Coeff of Chandu 13.4 Plt Count 179 MPV 10.5 Immature Gran % (Auto) 0.300 Neut % (Auto) 64.9 Lymph % (Auto) 21.7 Branch % (Auto) 10.4 H Eos % (Auto) 1.8 Baso % (Auto) 0.9 Absolute Neuts (auto) 4.6 Absolute Lymphs (auto) 1.53 Nucleated RBC % 0 PT INR APTT Sodium Potassium Chloride Carbon Dioxide Anion Gap BUN Creatinine Estim Creat Clear Calc Est GFR (MDRD) Af Amer Est GFR (MDRD) Non-Af BUN/Creatinine Ratio Glucose Hemoglobin A1c 5.2 Calcium Triglycerides 70 Cholesterol 198 LDL Cholesterol 109 VLDL Cholesterol 14 HDL Cholesterol 75 12/04/18 04:55 WBC RBC Hgb Hct MCV MCH MCHC RDW Std Deviation RDW Coeff of Chandu Plt Count MPV Immature Gran % (Auto) Neut % (Auto) Lymph % (Auto) Branch % (Auto) Eos % (Auto) Baso % (Auto) Absolute Neuts (auto) Absolute Lymphs (auto) Nucleated RBC % PT INR APTT Sodium 142 Potassium 3.9 Chloride 107 Carbon Dioxide 28.0 Anion Gap 7 BUN 12 Creatinine 0.52 L Estim Creat Clear Calc 42.39 Est GFR (MDRD) Af Amer 147 Est GFR (MDRD) Non-Af 121 BUN/Creatinine Ratio 23.1 H Glucose 93 Hemoglobin A1c Calcium 8.4 L Triglycerides Cholesterol LDL Cholesterol VLDL Cholesterol HDL Cholesterol POC Glucose 12/03/18 12:58 POC Glucose 92 Discharge Diet: Low fat/ Low Cholesterol Discharge Activity: Return to Normal Activity Weight Bearing Status: Weight bearing as tolerated Call your doctor if you observe: Numbness or Tingling, Dizziness, Fainting spells, Swelling in the ankles, - - change in speech Home Medications: Medications to take at Discharge Lorazepam [Ativan] 0.5 mg PO BID PRN PRN 05/13/16 escitalopram 20 mg tablet 20 mg PO QDAY tab 06/10/17 omeprazole 20 mg tablet,delayed release 20 mg PO BID 08/27/17 losartan 100 mg tablet 100 mg PO DAILY #90 tab 05/30/18 diltiazem CD 240 mg capsule,extended release 24 hr 240 mg PO QHS #90 cap 07/21/18 flecainide 150 mg tablet 150 mg PO BID #180 tab 07/25/18 Gabapentin [Neurontin] 300 mg PO TID 12/03/18 Apixaban [Eliquis] 5 mg PO BID #60 tab 12/04/18 Following Prescrptions Were Given to Patient: Apixaban [Eliquis] 5 mg PO BID #60 tab Transmission Status: Received by [employer] [id number] Other Amb Orders: Echo Complete [ECHO] Time Frame: 12/05/18, Location: None Selected Primary Care Physician: Michael Puga DO [Primary Care Provider] - Please follow up with your Primary Care Physician in: within 1-2 weeks Please Follow Up With: Osvaldo Lyles MD When: 1-2 weeks; call office for appointment Please Follow Up With: Alfa Bermeo MD When: 1-2 weeks; please call office for appointment Patient Instructions: What Is a TIA? Disposition: Home Minutes spent on discharge:: 45 Patient Condition:: Stable Medical Necessity - Tobacco Use Smoking Status: Never smoker Meaningful Use Info Meaningful Use Diagnoses (Choose all that apply): None applicable Code Visit OBSV E&M: 96308 Observation care discharge
[2018-12-04 11:17] VITALS: BP 147/72; PULSE 56; RESP 16; O2SAT 98
[2018-12-04] MEDS: LORazepam 0.5 MG Tablet PO (11:44)
[2018-12-04] MEDS: Acetaminophen 325 MG Tablet 650 MG PO (12:07)
--- NOTE | 2018-12-04 13:18 | NURSING ---
Called patient and instructed her to stop taking ASA.
== END 2018-12-04 10:37 | disposition home or self-care (01) ==
LOC: ED 13:45 → PCU 15:11
PROVIDERS: Admitting Provider Student in an Organized Health Care Education/Training Program; Emergency Provider Nurse Practitioner; Family Provider Student in an Organized Health Care Education/Training Program; PCP Student in an Organized Health Care Education/Training Program; Referring Provider Student in an Organized Health Care Education/Training Program; Visit Provider Student in an Organized Health Care Education/Training Program
DX: G45.9 Transient cerebral ischemic attack, unspecified (principal); R47.81 Slurred speech; I10 Essential (primary) hypertension; I48.0 Paroxysmal atrial fibrillation; F32.9 Major depressive disorder, single episode, unspecified; R47.1 Dysarthria and anarthria; M19.90 Unspecified osteoarthritis, unspecified site; E88.81 Metabolic syndrome and other insulin resistance; M21.371 Foot drop, right foot; F41.9 Anxiety disorder, unspecified; Z79.899 Other long term (current) drug therapy; Z79.82 Long term (current) use of aspirin; Z95.0 Presence of cardiac pacemaker
CPT/HCPCS: 36415; 70450; 70496; 70498; 80048; 80061; 82962; 83036; 85025; 85610; 85730; 93005; 99218; 99284; Q9967; G0378

== ENCOUNTER 2018-12-24 17:51 | Emergency (ER) | payer MEDICARE, OTHER, SELFPAY ==
[2018-12-24 17:51] VITALS: BP 146/102; PULSE 60; RESP 18; TEMP 36.4; O2SAT 95; BMI 32.9
--- NOTE | 2018-12-24 18:24 | RAD_ITS ---
STUDY: X-RAY - PELVIS REASON FOR EXAM: Female, 78 years old. Fall and right-sided pain TECHNIQUE: One view of the pelvis was obtained. COMPARISON: 05/13/2016 FINDINGS: There is a non-specific bowel gas pattern. Normal visualized soft tissue structures. Normal bilateral iliac wings, sacroiliac joints and visualized sacrum. Normal visualized bilateral superior and inferior pubic rami. Normal pubic symphysis. Normal ischial tuberosities. Bilateral hip arthroplasties. Degenerative lumbar changes. RAD/Pelvis 1 or 2 Views IMPRESSION: No acute osseous injury is evident. Electronically Signed: Cricket Hagen MD at 19:38 EDT Tel , Service support ,
--- NOTE | 2018-12-24 18:24 | CT_ITS ---
STUDY: CT BRAIN WITHOUT CONTRAST REASON FOR EXAM: Female, 78 years old. Fall and hit head on concrete RADIATION DOSAGE (If Supplied By Facility): CTDIvol = ( 44.99 ) mGy, DLP = ( 812.98 ) mGycm TECHNIQUE: Transaxial CT imaging of the brain was performed without administration of intravenous contrast material. Individualized dose optimization techniques were used for this CT. COMPARISON: 12/03/2018 FINDINGS: Normal soft tissue structures. Normal calvarium. Normal size ventricles and extra-axial spaces for the patient's age. There are areas of decreased attenuation within the white matter tracts of the supratentorial brain, consistent with microvascular disease changes. Age-related changes of the basal ganglia. Normal brainstem. Normal cerebellum. Empty sella. There is no intracranial hemorrhage. There are no findings of an acute ischemic infarction. Normal visualized paranasal sinuses. CT/Brain/Head without Contrast IMPRESSION: No fracture or intracranial hemorrhage. Electronically Signed: Cricket Hagen MD at 19:33 EDT Tel , Service support ,
--- NOTE | 2018-12-24 18:24 | CT_ITS ---
STUDY: CT CERVICAL SPINE WITHOUT CONTRAST REASON FOR EXAM: Female, 78 years old. Fell and hit head on concrete RADIATION DOSAGE (If Supplied By Facility): CTDIvol = ( 27.35 ) mGy, DLP = ( 537.87 ) mGycm TECHNIQUE: High resolution transaxial imaging was performed without contrast material. Sagittal and coronal images were reconstructed. Individualized dose optimization techniques were used for this CT. COMPARISON: None FINDINGS: Craniocervical junction is intact. Degenerative changes are present involving the atlantodental articulation. Normal odontoid process. Alignment is within normal limits. Multilevel degenerative disease is present. No acute fractures or dislocations are seen. Carotid calcifications. Pacemaker. CT/Spine Cervical without Contras IMPRESSION: No acute osseous injury is evident. Electronically Signed: Cricket Hagen MD at 19:37 EDT Tel , Service support ,
--- NOTE | 2018-12-24 18:25 | ED.VIS.FALL ---
History of Present Illness Chief Complaint: Fall Informant: Patient, Family Occurred: Today - JPTA Mechanism/Context: Same level fall Location: head, buttock, elbows Quality of Pain: Aching - scalp, right buttock Current Severity: Moderate Maximum Severity: Moderate Worsened by: palpation/sitting Associated Symptoms: Negative for: Parasthesias, Weakness, Loss of function, Inability to ambulate, Loss of consciousness, Amnesia Narrative: Patient has been having balance problems, she is in therapy for it. She was walking with a walker outside today, she lost her balance and the walker went up, she fell backward hitting her head on the concrete, her daughter witnessed it and said that her head bounced off the concrete, she had pretty hard. She denies a headache or nausea/vomiting or mental status changes. No focal neurologic symptoms peripherally. She is on Eliquis because of atrial fibrillation and a TIA. Tetanus Immunization: >10 years - Past Medical History (1) Essential (primary) hypertension Status: Chronic (2) History of permanent cardiac pacemaker placement Status: Chronic (3) Hyperlipidemia Status: Chronic (4) Paroxysmal atrial fibrillation Status: Chronic (5) Sick sinus syndrome Status: Chronic (6) TIA (transient ischemic attack) Status: Suspected Past Medical History - Allergies and Home Meds Allergies/Adverse Reactions: Allergies ciprofloxacin [From Cipro] Allergy (Verified 12/24/18 17:51) Rash Penicillins [PCN] Allergy (Verified 12/24/18 17:51) Hives Sulfa (Sulfonamide Antibiotics) Allergy (Verified 12/24/18 17:51) Hives hydrocodone [From Vicodin] Adverse Reaction (Verified 12/24/18 17:51) Other lisinopril Adverse Reaction (Verified 12/24/18 17:51) cough meperidine [From Demerol] Adverse Reaction (Verified 12/24/18 17:51) Vomiting pravastatin Adverse Reaction (Verified 12/24/18 17:54) Other LEG CRAMPS beta blockers Adverse Reaction (Uncoded 12/24/18 17:51) fatigue Primary Care Physician: Michael Puga DO [Primary Care Provider] - Surgical History: appendectomy, cholecystectomy, hysterectomy, tonsillectomy, - - Excision of melanoma, bilateral total knee replacements in 2010, right total hip in 2004 and left total hip recently in 2017. Lives: With Family Smoking Status: Never smoker Review of Systems General: Denies: Chills, Fever, Sweats Eyes: Denies: Visual changes - bilaterally, Diplopia ENT: Denies: Rhinorrhea, Sore throat Cardiovascular: Denies: Chest pain, Palpitations Respiratory: Denies: Dyspnea, Cough, Dyspnea on exertion Gastrointestinal: Denies: Abdominal pain, Nausea, Vomiting, Diarrhea, Melena, Hematochezia Genitourinary: Denies: Dysuria, Hematuria, Frequency Musculoskeletal: Reports: Neck pain - More on right, Back pain - Right buttock. Denies: Extremity Pain Skin: Reports: Wounds. Denies: Rash Neurological: Denies: Headache, Weakness, Numbness Physical Exam Vital Signs/Narrative: Vital Signs Temp Pulse Resp BP Pulse Ox 12/24/18 17:51 97.6 F L 60 18 146/102 H 95 Inital Vital Signs reviewed: Yes General: Well nourished, Well developed Head: Normocephalic, Trauma, Tenderness - Occipital hematoma without crepitance or depression, there is an abrasion but no laceration Eyes: Perrl, EOMI ENT: TM's clear, No hemotympanum or drainage, No trauma - And no young sign. Negative for: Otorrhea, Nasal trauma Neck: Full ROM, Paraspinal Tenderness - Throughout right side. Negative for: Spinal Tenderness Cardiovascular: Regular rate, Regular rhythm, No murmurs Respiratory: No distress, CTA bilaterally, Chest nontender Abdomen: Soft, Nontender, Nondistended, Normal bowel sounds Back: - - Tender in right buttock, and area of right ischial tuberosity. Pelvis stable AP compression.. Negative for: Spinal Tenderness Extremeties: Full range of motion throughout all 4 extremities without pain including both elbows. No bony tenderness at the olecranon process bilaterally. Skin: Normal color, No rash, Trauma - Skin tear/abrasion right olecranon. Minor abrasion left olecranon. Neurological: Alert, Oriented x3, Cranial nerves II-XII grossly intact, Normal Strength, Normal Sensation, - - GCS 15 Psychological: Normal affect, Normal Mood Diagnostic/Tx/Re-eval Impressions Brain CT 12/24/18 18:24 IMPRESSION: No fracture or intracranial hemorrhage. Electronically Signed: Cricket Hagen MD at 19:33 EDT Tel , Service support , Cervical Spine CT 12/24/18 18:24 IMPRESSION: No acute osseous injury is evident. Electronically Signed: Cricket Hagen MD at 19:37 EDT Tel , Service support , Pelvis X-Ray 12/24/18 18:24 IMPRESSION: No acute osseous injury is evident. Electronically Signed: Cricket Hagen MD at 19:38 EDT Tel , Service support , 12/24/18 18:24 Brain/Head without Contrast [CT] Stat Pelvis 1 or 2 Views [RAD] Stat Spine Cervical without Contras [CT] Stat - Medical Decision Making Imaging is negative for acute injury or fracture. She declined analgesics, stating that she took some Tylenol before coming, we gave her an ice pack for her head and neck which helped. She had no further symptoms in the emergency department except for soreness, and was fine with discharge home. ED Disposition - Plan for ED Patient: Disposition: Home or Assisted Living Diagnosis: Closed head injury without loss of consciousness, Traumatic hematoma of scalp, Contusion, buttock, Fall from slip, trip, or stumble Instructions: Hematoma, HEAD INJURY, No Wake-Up (Adult) Referrals: Michael Puga, [Primary Care Provider] - As Needed
[2018-12-24] MEDS: Diphth,Pertuss(Acell),Tet Vac 0.5 ML Vial IM (18:52)
[2018-12-24 21:59] VITALS: BP 176/87; PULSE 68; RESP 18; O2SAT 99
== END 2018-12-24 22:00 | disposition home or self-care (01) ==
PROVIDERS: Emergency Provider Emergency Medicine; Family Provider Student in an Organized Health Care Education/Training Program; PCP Student in an Organized Health Care Education/Training Program
DX: S00.03XA Contusion of scalp, initial encounter (principal); S30.0XXA Contusion of lower back and pelvis, initial encounter; W01.0XXA Fall on same level from slipping, tripping and stumbling without subsequent striking against object, initial encounter; E78.5 Hyperlipidemia, unspecified; I10 Essential (primary) hypertension; I48.0 Paroxysmal atrial fibrillation; Z79.01 Long term (current) use of anticoagulants; Z85.820 Personal history of malignant melanoma of skin; Z86.73 Personal history of transient ischemic attack (TIA), and cerebral infarction without residual deficits; Z88.0 Allergy status to penicillin; Z88.1 Allergy status to other antibiotic agents; Z88.2 Allergy status to sulfonamides; Z88.5 Allergy status to narcotic agent; Z90.49 Acquired absence of other specified parts of digestive tract; Z95.0 Presence of cardiac pacemaker; Z90.710 Acquired absence of both cervix and uterus; Z96.653 Presence of artificial knee joint, bilateral
CPT/HCPCS: 70450; 72125; 72170; 90715; 99282

== ENCOUNTER → 2019-01-20 14:28 | Outpatient (CLI) | payer MEDICARE, OTHER, SELFPAY ==
[2018-12-27 14:25] VITALS: BMI 33.1
--- NOTE | 2019-01-20 14:31 | ECHOD_ITS ---
Reason For Study: AFIB/FLUTTER Procedure This was a 2D Doppler, Color Flow transthoracic echocardiogram. Exam performed in department. Left Ventricle Normal LV size. Left ventricular systolic function is normal. The estimated ejection fraction is 55 %. Stage 1 diastolic dysfunction. No regional wall motion abnormalities noted. Right Ventricle Normal RV size. ICD or pacer leads identified within the right ventricle. Normal systolic function. Atria The left atrium is mildly enlarged. Normal right atrium. Mitral Valve Normal mitral valve. Mild (1+) eccentric mitral valve insufficiency. Tricuspid Valve Normal tricuspid valve. Mild (1+) tricuspid valve insufficiency. Pulmonary artery systolic pressure is 35 mmHg. Aortic Valve Normal aortic valve. Trisinus/trileaflet aortic valve. Pulmonic Valve Normal pulmonic valve. Great Vessels Normal aortic root. The pulmonary artery is normal size. Normal inferior vena cava. Pericardium/Pleural No pericardial effusion. MMode/2D Measurements & Calculations LVIDd: 4.7 cm IVSd: 0.85 cm Ao root diam: 3.0 cm LVIDs: 3.1 cm LVPWd: 0.82 cm RVDd: 3.7 cm FS: 34.1 % LAV(MOD-bp): 68.9 ml LVAd ap4: 20.8 cm2 SV(MOD-sp4): 28.6 ml LAV(MOD-bp) Indexed: 35.0 ml/m2 EDV(MOD-sp4): 53.1 ml LAV(MOD-sp2): 63.9 ml EDV(sp4-el): 54.5 ml LAV(MOD-sp4): 73.7 ml LVAs ap4: 12.3 cm2 ESV(MOD-sp4): 24.5 ml ESV(sp4-el): 23.5 ml EF(MOD-sp4): 53.9 % EF(sp4-el): 57.0 % SV(sp4-el): 31.1 ml LA A4 area: 23.1 cm2 LA dimension(2D): 4.0 cm RA A4 area: 18.9 cm2 Time Measurements MV dec time: 0.36 sec Doppler Measurements & Calculations MV E max michael: 50.3 cm/sec Lat Peak E' Michael: 7.3 cm/sec Med Peak E' Michael: 4.3 cm/sec MV A max michael: 74.1 cm/sec E/E' lat: 6.9 E/E' med: 11.6 MV E/A: 0.68 Ao V2 max: 115.0 cm/sec LV V1 max: 88.5 cm/sec PA V2 max: 122.9 cm/sec Ao max P.3 mmHg LV V1 max P.1 mmHg PI end-d michael: 75.1 cm/sec TR max michael: 273.9 cm/sec TR max P.0 mmHg Interpretation Summary Normal LV size. Left ventricular systolic function is normal. The estimated ejection fraction is 55 %. Stage 1 diastolic dysfunction. The left atrium is mildly enlarged. Mild (1+) tricuspid valve insufficiency. Ordering Physician: Gallo Hickey Referring Physician: MARCEL CROCKER Performed By: Starr Lee, RDCS, RVT
== END ==
PROVIDERS: Family Provider Student in an Organized Health Care Education/Training Program; PCP Student in an Organized Health Care Education/Training Program; Referring Provider Internal Medicine Cardiovascular Disease; Visit Provider Internal Medicine Cardiovascular Disease
DX: I48.0 Paroxysmal atrial fibrillation (principal)
CPT/HCPCS: 93306

== ENCOUNTER → 2020-01-23 15:22 | Outpatient (CLI) | payer MEDICARE, OTHER, SELFPAY ==
[2020-01-23 14:17] VITALS: BMI 34.9
[2020-01-23 15:58] LABS: Absolute Lymphocyte Count 2.12 X10^3/uL (0.83-4.51); Absolute Neutrophil Count 5.9 X10^3/uL (2.0-7.7); Basophil# 0.07 X10^3/uL; Basophil% 0.8 % (0-1); Eosinophil# 0.13 X10^3/uL; Eosinophils% 1.4 % (0-5); Lymphocyte # 2.12 X10^3/ul (4.0); Lymphocyte % 23.6 % (19-41); Mean Corp Hgb Conc 32.6 g/dL (32-36); Mean Corpuscular Hgb 28.9 pg (27.0-32.0); Mean Corpuscular Volume 88.7 fL (81-99); Mean Platelet Vol. 10.1 fl (6.2-12.0); Monocyte# 0.79 X10^3/uL; Monocyte% 8.8 % (0-10); NRBC Flagged by Analyzer 0 % (0-5); Neutrophil # 5.86 X10^3/uL (2.7-7.7); Neutrophil % 65.1 % (47-70); Platelet Count 213 K/mm3 (150-450); RBC Distribution Width SD 42.4 fl (35.1-43.9); Red Blood Count 4.85 M/mm3 (4.2-5.4)
[2020-01-23 16:18] LABS: AST(SGOT) 14 U/L (15-37); Alanine Aminotransfer ALT/SGPT 24 U/L (13-56); Albumin, Serum 3.6 g/dL (3.2-5.0); Alkaline Phosphatase 100 U/L (45-117); Anion Gap 8 (5-15); BUN 14 mg/dL (7-18); BUN/Creat Ratio 24.3 RATIO (10-20); Bilirubin, Direct 0.22 mg/dL (0.00-0.30); Calcium,Total 8.7 mg/dL (8.5-10.1); Chloride 104 mmol/L (98-107); Creatinine, Serum 0.58 mg/dL (0.55-1.02); EST Glomerular Filtration Rate 108 mL/min (>60); Est Glom Filt Rate - Afr Amer 130 mL/min (>60); Globulin 3.6 g/dL (2.2-4.2); Glucose 89 mg/dL (74-106); Potassium 3.9 mmol/L (3.5-5.1); Protein, Total 7.2 g/dL (6.4-8.2); Sodium Level 140 mmol/L (136-145); Thyroid Stim Hormone (TSH) 2.21 uIU/mL (0.358-3.74)
== END ==
PROVIDERS: PCP Student in an Organized Health Care Education/Training Program; Referring Provider Internal Medicine Cardiovascular Disease; Visit Provider Internal Medicine Cardiovascular Disease
DX: I48.0 Paroxysmal atrial fibrillation (principal); R29.6 Repeated falls
CPT/HCPCS: 36415; 80048; 80076; 84443; 85025

== ENCOUNTER → 2020-08-27 12:44 | Outpatient (CLI) | payer MEDICARE, OTHER, SELFPAY ==
[2020-08-06 14:27] VITALS: BMI 36.2
== END ==
PROVIDERS: PCP Student in an Organized Health Care Education/Training Program; Referring Provider Physician Assistant Medical; Visit Provider Physician Assistant Medical
DX: I48.0 Paroxysmal atrial fibrillation (principal); Z79.899 Other long term (current) drug therapy
CPT/HCPCS: 94060; 94726; 94729

== ENCOUNTER 2021-06-02 13:59 | Outpatient (CLI) | payer MEDICARE, OTHER, SELFPAY ==
--- NOTE | 2021-06-02 14:07 | RAD_ITS ---
STUDY: X-RAY CHEST REASON FOR EXAM: Female, 81 years old. For PPM generator change on 06/09/21 TECHNIQUE: PA and lateral views of the chest. COMPARISON: None. FINDINGS: Left subclavian dual-lead pacemaker. Status post left axillary lymph node dissection. The lungs are clear and expanded. There is no demonstrated pleural abnormality. Normal size heart. Normal mediastinum and isaak. Normal visualized pulmonary arteries. Normal visualized aortic arch and descending thoracic aorta. Normal visualized thoracic spine. Normal visualized ribs, clavicles, and shoulders. There is no demonstrated abnormality of the visualized soft tissue structures of the upper abdomen. RAD/Chest PA and Lateral IMPRESSION: No active disease. Electronically Signed: Deacon Erwin MD at 16:40 EST ,
== END 2021-06-02 23:59 | disposition short-term general hospital (02) ==
LOC: RAD 14:02
PROVIDERS: PCP Student in an Organized Health Care Education/Training Program; Referring Provider Internal Medicine Cardiovascular Disease; Visit Provider Internal Medicine Cardiovascular Disease
DX: I48.0 Paroxysmal atrial fibrillation (principal); I49.5 Sick sinus syndrome; Z95.0 Presence of cardiac pacemaker
CPT/HCPCS: 71046

== ENCOUNTER 2021-06-09 10:11 | Day surgery (SDC) | payer MEDICARE, OTHER, SELFPAY ==
[2021-06-02 14:30] LABS: Mucous, Urine 0 SEEN /hpf (<or=2+); Red Blood Cells-Urine 0 SEEN /hpf (0-5); Squamous Epithelial Cells - UA 0 SEEN /hpf (5-10); White Blood Cells 0 SEEN /hpf (0-5)
[2021-06-02 14:48] LABS: Hematocrit 40.6 % (37-47); Hemoglobin 13.5 g/dL (12.0-15.0); Mean Corp Hgb Conc 33.3 g/dL (32-36); Mean Corpuscular Hgb 29.5 pg (27.0-32.0); Mean Corpuscular Volume 88.8 fL (81-99); Mean Platelet Vol. 10.3 fl (6.2-12.0); Platelet Count 240 K/mm3 (150-450); RBC Distribution Width CV 13.9 % (11.6-14.6); RBC Distribution Width SD 45.3 fl (35.1-43.9); Red Blood Count 4.57 M/mm3 (4.2-5.4); White Blood Count 7.3 K/mm3 (4.4-11.0)
[2021-06-02 15:00] LABS: Color, Urine Yellow (Yellow); Glucose, Dipstick Normal (Normal); Ketone-Dipstick Negative (Negative); Leukocyte Esterase-Dipstick 25 /ul (Negative); Nitrite-Dipstick Negative (Negative); Occult Blood-Urine Negative /ul (Negative); Protein-Dipstick 15 mg/dl (Negative); Specific Gravity, Urine 1.015 (1.002-1.030); Urine Bilirubin Dipstick Negative (Negative); Urine Clarity Sl. Cloudy (Clear); Urine Urobilinogen Normal (Normal); Urine pH 6.5 (5.0 - 8.0)
[2021-06-02 15:06] LABS: International Normalized Ratio 1.1; Prothrombin Time (Protime)PT. 13.1 SECONDS (11.7-14.9)
[2021-06-02 15:13] LABS: Anion Gap 5 (5-15); BUN 13 mg/dL (7-18); BUN/Creat Ratio 18.6 RATIO (10-20); Bacteria 1+ /hpf (None Seen); Calcium,Total 8.6 mg/dL (8.5-10.1); Chloride 103 mmol/L (98-107); EST Glomerular Filtration Rate 86 mL/min (>60); Est Glom Filt Rate - Afr Amer 104 mL/min (>60); Glucose 88 mg/dL (74-106); Potassium 3.7 mmol/L (3.5-5.1); Sodium Level 138 mmol/L (136-145)
[2021-06-02 22:34] LABS: Thyroid Stim Hormone (TSH) 1.91 uIU/mL (0.358-3.74)
[2021-06-06 09:07] VITALS: BMI 36.9
--- NOTE | 2021-06-09 12:59 | CL.IE_ITS ---
Patient: MICHAEL MEIER Study Date: 06/09/2021 Performing: Gallo Hickey MD : 1940 Age: 81 Gender: female PROCEDURES PERFORMED [id number])BATTERY REMOVAL+REPLACEMENT PACER-DUAL LEAD INDICATIONS Sinoatrial node dysfunction/Sick sinus syndrome PROCEDURE DETAILS The patient was brought to the Catheterization Lab in the postabsorptive nonsedated state. Infor med consent was obtained prior to the procedure. Local anesthetic was given subcutaneously to the le ft upper chest area with Lidocaine 2%. Incision was made to the left upper chest. PPM generator was r emoved. PPM generator was then interrogated by the multimedia programmer. Device pocket was irrigated with antib iotic. PPM generator was attached to the lead(s) and inserted into the pocket. Subcutaneous closure w as completed with 3-0 Vicryl. Skin closure was completed with 4-0 Vicryl. Steri-strips applied to lef t subclavicular incision. The patient tolerated the procedure well. Estimated Blood Loss: < 10 mls IMPLANTED / EX-PLANTED DEVICES EXPLANTED DEVICE(S): PPM Generator - Fulling Machine Operator: [employer], Model # [id number] , Serial # [id number] IMPLANTED DEVICE(S): PPM Generator - Fulling Machine Operator: [employer], Model # [id number] , Serial # [id number] DEVICE PARAMETERS DEVICE PARAMETERS: Mode - DDDR lower rate - 60 upper rate - 120 rate response on Mode- DDDR Lower rate- 60 Upper rate- 120 CONCLUSIONS / RECOMMENDATIONS Device Conclusions: Successful implantation of a dual chamber pacemaker battery change and replacemen t Device Recommendations: Follow up with Primary Care Physician PROCEDURE MEDICATIONS Versed 2 mg IV Fentanyl 50 mcg IV Versed 1 mg IV Fentanyl 25 mcg IV Fentanyl 25 mcg IV Oxygen: 2 L/min via nasal cannula Antibiotic given in appropriate timeframe. Clindamycin 900 mg IV 06/09/2021 11:37:47 Signed By Gallo Hiceky MD On 06/09/2021 12:58:06 Gallo Hickey MD
== END 2021-06-09 23:59 | disposition home or self-care (01) ==
LOC: CLSP 10:15
PROVIDERS: Physician Assistant Medical; PCP Student in an Organized Health Care Education/Training Program; Referring Provider Internal Medicine Cardiovascular Disease; Visit Provider Internal Medicine Cardiovascular Disease
DX: I49.5 Sick sinus syndrome (principal); I48.0 Paroxysmal atrial fibrillation; Z95.0 Presence of cardiac pacemaker; I10 Essential (primary) hypertension; G47.33 Obstructive sleep apnea (adult) (pediatric); Z86.73 Personal history of transient ischemic attack (TIA), and cerebral infarction without residual deficits; E78.5 Hyperlipidemia, unspecified; Z82.49 Family history of ischemic heart disease and other diseases of the circulatory system; R53.83 Other fatigue
CPT/HCPCS: 33228; 36415; 80048; 81001; 84443; 85027; 85610; 99152; 99153; J7040; J7050

== ENCOUNTER → 2021-09-10 | Outpatient (CLI) | payer MEDICARE, OTHER, SELFPAY ==
[2021-09-10 13:48] LABS: Anion Gap 5 (5-15); BUN 17 mg/dL (7-18); BUN/Creat Ratio 19.7 RATIO (10-20); Calcium,Total 8.8 mg/dL (8.5-10.1); Chloride 100 mmol/L (98-107); Creatinine, Serum 0.86 mg/dL (0.55-1.02); EST Glomerular Filtration Rate 67 mL/min (>60); Est Glom Filt Rate - Afr Amer 82 mL/min (>60); Glucose 92 mg/dL (74-106); Potassium 3.8 mmol/L (3.5-5.1); Sodium Level 135 mmol/L (136-145)
== END | disposition home or self-care (01) ==
PROVIDERS: PCP Student in an Organized Health Care Education/Training Program; Referring Provider Nurse Practitioner Family; Visit Provider Nurse Practitioner Family
DX: I10 Essential (primary) hypertension (principal)
CPT/HCPCS: 36415; 80048

== ENCOUNTER 2021-12-26 19:24 | Emergency (ER) | payer MEDICARE, OTHER, SELFPAY ==
[2021-12-26 19:25] VITALS: BP 190/67; PULSE 62; PULSE 63; RESP 18; TEMP 36.6; O2SAT 97; BMI 37.4
--- NOTE | 2021-12-26 20:43 | CT_ITS ---
EXAM: CT CERVICAL SPINE WITHOUT INTRAVENOUS CONTRAST CLINICAL INDICATION: trauma TECHNIQUE: Helically acquired images were obtained of the cervical spine without intravenous contrast. 2D reformatted images were reviewed. CTDIvol = ( 25.95 ) mGy, DLP = ( 455.21 ) mGycm This CT exam was performed using one or more of the following dose reduction techniques: automated exposure control, adjustment of the mA and/or kV according to patient size, and/or use of iterative reconstruction technique. This report was created using [employer] report Trip[employer] technology. COMPARISON: None. FINDINGS: VERTEBRAE: No acute or healing fracture. DISCS/SPINAL CANAL/NEURAL FORAMINA: Multilevel spine degenerative changes with 4 mm of degenerative anterolisthesis of C7 on T1. No suspicious lytic or blastic abnormalities. No critical stenosis. SOFT TISSUES: Unremarkable. No prevertebral soft tissue swelling. LYMPH NODES: Unremarkable. No cervical adenopathy. LUNG APICES: Unremarkable as visualized. Clear. CT/Spine Cervical without Contras IMPRESSION: 1. No acute or healing fracture or acute posttraumatic malalignment. 2. Multilevel spine degenerative changes with 4 mm of degenerative anterolisthesis of C7 on T1. Electronically Signed: Aravind Lynch MD at 21:45 EDT ,
--- NOTE | 2021-12-26 20:43 | CT_ITS ---
EXAM: CT HEAD WITHOUT INTRAVENOUS CONTRAST CLINICAL INDICATION: trauma TECHNIQUE: Multiple axial images were obtained of the head without intravenous contrast. CTDIvol = ( 44.99 ) mGy, DLP = ( 846.73 ) mGycm This CT exam was performed using one or more of the following dose reduction techniques: automated exposure control, adjustment of the mA and/or kV according to patient size, and/or use of iterative reconstruction technique. This report was created using [employer] report generation technology. COMPARISON: 12/24/18 CT FINDINGS: BRAIN AND EXTRA-AXIAL SPACES: Mild diffuse parenchymal atrophy. Mild chronic ischemic small vessel white matter disease. No intra- or extra-axial hemorrhage. No evidence of acute infarct. No intracranial mass or mass effect. There is preservation of the nickerson/white matter interface. Posterior fossa structures are unremarkable. Ventricles are appropriate for age. No hydrocephalus. Basal cisterns are patent. BONES/JOINTS: No evidence of acute or healing fracture or malalignment. SINUSES: Unremarkable as visualized. Clear. MASTOID AIR CELLS: Unremarkable. Clear. ORBITS: Visualized globes, extraocular muscles, optic nerves and retrobulbar fat appear unremarkable. CT/Brain/Head without Contrast IMPRESSION: No acute intracranial pathology. Electronically Signed: Aravind Lynch MD at 21:43 EDT ,
--- NOTE | 2021-12-26 20:46 | EDS_ITS ---
HPI History of Present Illness Chief Complaint: Head Injury Informant: patient Narrative Narrative: 81-year-old female presented to the emergency department with a chief complaint of a fall. Patient was leaving her front door, when she fell down the handicap ramp. She notes she hit her head right shoulder and right elbow. She notes skin tear to the right elbow. She notes bruising to the left forearm. She notes that her neck is sore. She notes no loss of consciousness. Tetanus is up-to-date. She denies any leg symptoms. Tetanus Immunization: 5-10 years [facility] Medical History Allergic rhinitis Anxiety Carotid artery disease Colitis Daytime somnolence Depression Dysmetabolic syndrome X Essential (primary) hypertension FH: sudden cardiac (SCD) Gastritis (09/07/18) GI bleed (2018) Hyperlipidemia Malignant melanoma of skin of trunk, except scrotum Obesity Osteoarthritis Paroxysmal atrial fibrillation Sick sinus syndrome TIA (transient ischemic attack) (12/2018) Home Medications lorazepam 0.5 mg tablet 0.5 mg PO BID PRN PRN Anxiety 05/13/16 [History Last Taken Unknown] escitalopram oxalate 20 mg tablet (Lexapro) 20 mg PO QDAY 06/10/17 [History Last Taken Unknown] aspirin 81 mg tablet,delayed release (Adult Low Dose Aspirin) 81 mg PO QDAY #90 tabs 12/27/18 [Rx Last Taken Unknown] coenzyme Q10 100 mg capsule (Co Q-10) 100 mg PO DAILY 01/23/20 [History Last Taken Unknown] rosuvastatin 10 mg tablet 10 mg PO DAILY 01/23/20 [History Last Taken Unknown] amiodarone 200 mg tablet 200 mg PO DAILY #90 tabs 12/30/20 [Rx Last Taken 06/09/21] diltiazem HCl 240 mg capsule,extended release 24 hr 240 mg PO QHS #90 caps 02/10/21 [Rx Last Taken Unknown] cholecalciferol (vitamin D3) 50 mcg (2,000 unit) capsule 50 mcg PO DAILY 06/02/21 [History Last Taken Unknown] losartan 100 mg tablet 100 mg PO DAILY #90 tabs 06/02/21 [Rx Last Taken 06/09/21] hydrochlorothiazide 25 mg tablet 25 mg PO Q OTHER DAY 11/25/21 [History Last Taken Unknown] omeprazole 20 mg capsule,delayed release 20 mg PO DAILY 11/25/21 [History Last Taken Unknown] sucralfate 100 mg/mL oral suspension 10 ml PO TID PRN 11/25/21 [History Last Taken Unknown] Allergy/AdvReac Type Severity Reaction Status Date / Time ciprofloxacin [From Cipro] Allergy Rash Verified 11/25/21 14:46 Penicillins [PCN] Allergy Hives Verified 11/25/21 14:46 Sulfa (Sulfonamide Allergy Hives Verified 11/25/21 14:46 Antibiotics) Beta-Blockers AdvReac Other Verified 11/25/21 14:46 (Beta-Adrenergic Bloc hydrocodone [From Vicodin] AdvReac Other Verified 11/25/21 14:46 lisinopril AdvReac cough Verified 11/25/21 14:46 meperidine [From Demerol] AdvReac Vomiting Verified 11/25/21 14:46 pravastatin AdvReac Other Verified 11/25/21 14:46 Family History Grandfather Myocardial infarction Sudden cardiac Father Myocardial infarction CAD (coronary artery disease) CHF (congestive heart failure) Mother Myocardial infarction CAD (coronary artery disease) A-fib Brother A-fib CHF (congestive heart failure) Brother Cancer Son Diabetes Son Hypertension Surgical History History of cholecystectomy History of esophagogastroduodenoscopy (EGD) (09/07/18) History of left heart catheterization (LHC) (05/2011) History of permanent cardiac pacemaker placement (06/09/21) History of right hip replacement (~2003) 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) History of total left knee replacement (TKR) History of total right knee replacement (TKR) (~08/2011) Social History Smoking Status: Never smoker alcohol intake: never substance use type: does not use caffeine: Yes what type of physical activity do you participate in: none seatbelt use: always ROS ROS ED Constitutional Constitutional ED: Denies chills or weight loss Eyes Eyes: Denies change in vision or diplopia ENT ENT ED: Denies ear pain, rhinorrhea or sore throat Cardiovascular Cardiovascular: Denies chest pain, orthopnea, palpitations or racing heartbeat Respiratory/Chest Respiratory/Chest: Denies cough, dyspnea or orthopnea Gastrointestinal Gastrointestinal: Denies abdominal pain, diarrhea, nausea or vomiting Genitourinary Genitourinary ED: Denies dysuria, hematuria or urinary frequency Musculoskeletal Musculoskeletal: Reports neck pain and other Details: See history of present illness ; Denies arthralgias or myalgias Integumentary Reports Abrasions; Denies abscess or rash Neurologic Neurologic: Reports headache(s); Denies weakness Psychiatric Psychiatric: Denies anxiety, depression, suicidal ideation or suicidal thoughts Endocrine Endocrinology: Denies polydipsia, polyphagia or polyuria Hematologic/Lymphatic Hematologic/Lymphatic: Reports easy bruising Allergic/Immunologic Allergic/Immunologic ED: Denies mouth swelling, tongue swelling or urticaria EXAM Physical Exam Const Vital Signs: 12/26/21 19:25 12/26/21 19:25 12/26/21 21:27 Temperature 97.9 F 97.9 F Temperature Source Temporal Temporal Pulse Rate 62 63 Respiratory Rate 18 18 Respiratory Effort Normal Non-Labored Respiratory Pattern Normal Blood Pressure 190/67 H 190/67 H Blood Pressure Mean 108 108 Pulse Ox 97 97 Oxygen Delivery Method Room Air Room Air Positive well nourished and well developed General Appearance ED: well developed HEENT Reports normocephalic, head/scalp atraumatic and moist mucous membranes Eyes PERRL and EOMs intact bilaterally Neck full ROM, no lymphadenopathy, supple and no JVD Resp normal respiratory effort and clear to auscultation bilaterally Cardio regular rate, regular rhythm and no murmurs GI normal to inspection, nondistended, normoactive bowel sounds and non-tender Palpation: soft Back/Spine no CVA tenderness and normal ROM Extremity Extremity Narrative: Patient has full range of motion albeit painful of the right elbow and shoulder. There is skin tears the posterior right elbow. There are areas of ecchymosis over the anterior aspect of the left anterior forearm. General Extremety ED: Negative for edema General Extremity: Negative for edema Neuro oriented x3 and CN's II-XII intact bilaterally Sensorium / Orientation: alert Motor Exam: strength 5/5 throughout Psych mental status grossly normal Mood & Affect: Negative for depressed or tearful Skin no rashes or lesions noted and no wounds MDM MDM MDM Narrative Medical decision making narrative: CT of the brain and cervical spine were obtained. My interpretation of the plain films of the right elbow is no acute fracture. Interpretation of the plain films of the right shoulder is no acute fracture. Wounds were cleansed and dressed by nursing. Patient will be discharged home with supportive care return if worsening or concerns Radiography Diagnostic Testing: Clinical Impression(s) from Imaging Studies Brain CT 12/26/21 20:43 IMPRESSION: No acute intracranial pathology. Electronically Signed: Aravind Lynch MD at 21:43 EDT , Cervical Spine CT 12/26/21 20:43 IMPRESSION: 1. No acute or healing fracture or acute posttraumatic malalignment. 2. Multilevel spine degenerative changes with 4 mm of degenerative anterolisthesis of C7 on T1. Electronically Signed: Aravind Lynch MD at 21:45 EDT , Discharge Plan Triage Chief Complaint: Head Injury ED Provider: Ernst Brush Dx/Rx/DC Orders Clinical Impression: Head injury, Acute cervical myofascial strain, Contusion of right shoulder, Contusion of elbow, right, Skin tear of elbow without complication Instructions: ED Head Injury (Adult), ED Skin Avulsion Prescriptions: No Action escitalopram oxalate [Lexapro] 20 mg tablet 20 mg PO QDAY aspirin [Adult Low Dose Aspirin] 81 mg tablet,delayed release (DR/EC) 81 mg PO QDAY Qty: 90 3RF rosuvastatin 10 mg tablet 10 mg PO DAILY coenzyme Q10 [Co Q-10] 100 mg capsule 100 mg PO DAILY sucralfate 100 mg/mL suspension 10 ml PO TID PRN Label Comments: TAKE 10 ML BY MOUTH 4 TIMES DAILY omeprazole 20 mg capsule,delayed release(DR/EC) 20 mg PO DAILY hydrochlorothiazide 25 mg tablet 25 mg PO Q OTHER DAY cholecalciferol (vitamin D3) 50 mcg (2,000 unit) capsule 50 mcg PO DAILY losartan 100 mg tablet 100 mg PO DAILY Qty: 90 3RF lorazepam 0.5 MG tablet 0.5 mg PO BID PRN PRN (Reason: Anxiety) amiodarone 200 mg tablet 200 mg PO DAILY Qty: 90 3RF diltiazem HCl 240 mg capsule,extended release 24hr 240 mg PO QHS Qty: 90 3RF Primary Care Provider: Michael Puga Referrals: Michael Puga DO [Primary Care Provider] -
--- NOTE | 2021-12-26 21:29 | RAD_ITS ---
EXAM: XR RIGHT ELBOW COMPLETE, 3 OR MORE VIEWS CLINICAL INDICATION: trauma TECHNIQUE: Frontal, lateral and oblique views of the right elbow. This report was created using [employer] report generation technology. COMPARISON: None. FINDINGS: BONES/JOINTS: Small olecranon enthesophyte. No acute or healing fracture or malalignment. No significant elbow joint effusion. No unusual lytic or sclerotic lesions of bone. 6 mm elongated chronic/corticated ossification along the common extensor tendon. SOFT TISSUES: Unremarkable. No soft tissue swelling or gas. No radiopaque foreign body. RAD/Elbow min 3 Views IMPRESSION: No acute or healing fracture or malalignment. Electronically Signed: Aravind Lynch MD at 21:51 EDT ,
--- NOTE | 2021-12-26 21:29 | RAD_ITS ---
EXAM: XR RIGHT SHOULDER COMPLETE, 2 OR MORE VIEWS CLINICAL INDICATION: trauma TECHNIQUE: Two or more views of the right shoulder. This report was created using [employer] report generation technology. COMPARISON: None. FINDINGS: BONES/JOINTS: Degenerative changes of the spine at multiple levels. Chronic full-thickness right sided rotator cuff tear with superior subluxation of the humeral head forming a pseudoarticulation with the undersurface of the acromion. Moderate to severe hypertrophic degenerative changes of the acromioclavicular joint. No acute fracture. No sclerotic or destructive changes observed. SOFT TISSUES: Unremarkable. No soft tissue swelling or gas. No radiopaque foreign body. RAD/Shoulder min 2 Views IMPRESSION: 1. Chronic full-thickness right sided rotator cuff tear. 2. Moderate to severe hypertrophic degenerative changes of the acromioclavicular joint. Electronically Signed: Aravind Lynch MD at 21:54 EDT ,
== END 2021-12-26 22:12 | disposition home or self-care (01) ==
PROVIDERS: Emergency Provider Emergency Medicine; PCP Student in an Organized Health Care Education/Training Program; Visit Provider Emergency Medicine
DX: S09.90XA Unspecified injury of head, initial encounter (principal); I48.0 Paroxysmal atrial fibrillation; W10.2XXA Fall (on)(from) incline, initial encounter; S16.1XXA Strain of muscle, fascia and tendon at neck level, initial encounter; I10 Essential (primary) hypertension; S50.01XA Contusion of right elbow, initial encounter; S40.011A Contusion of right shoulder, initial encounter; Z86.73 Personal history of transient ischemic attack (TIA), and cerebral infarction without residual deficits
CPT/HCPCS: 70450; 72125; 73030; 73080; 99283

== ENCOUNTER 2023-09-27 21:54 | Inpatient (IN) | payer MEDICARE, OTHER, SELFPAY ==
[2023-09-27] VITALS (9 sets, daily range): BP systolic 173–189; BP diastolic 55–70; PULSE 72–79; RESP 18–23; TEMP 36.9–37.7; O2SAT 91–94; BMI 38.0
--- NOTE | 2023-09-27 22:07 | EKG12_ITS ---
Test Reason : SOB Blood Pressure : / mmHG Vent. Rate : 075 BPM Atrial Rate : 075 BPM P-R Int : 152 ms QRS Dur : 092 ms QT Int : 344 ms P-R-T Axes : 060 021 193 degrees QTc Int : 384 ms Normal sinus rhythm ST & T wave abnormality, consider anterolateral ischemia Abnormal ECG Confirmed by SANDY SZYMANSKI, CHINMAY ([id number]), photographic editor KATIA MEDEIROS ([id number]) on 09/30/2023 6:19:56 AM Referred By: Confirmed By:HARSHA DELGADO MD
--- NOTE | 2023-09-27 22:25 | RAD_ITS ---
INDICATION: Chest pain and shortness of breath EXAMINATION/TECHNIQUE: X-RAY - portable upright AP chest x-ray COMPARISON: 06/02/2021 FINDINGS: LINES/DEVICES: Stable transvenous pacemaker. LUNGS: Bilateral and multifocal patchy airspace opacities without consolidation or pleural effusion. MEDIASTINUM AND CARDIOVASCULAR STRUCTURES: Cardiac silhouette stable at upper normal limits. BONES AND SOFT TISSUES: No acute changes. RAD/Chest 1 View (Portable) IMPRESSION: Bilateral and multifocal infiltrates consistent with pneumonia. Recommend short-term follow-up to complete resolution. Electronically Signed: Osmani Chance MD at 23:25 EDT ,
[2023-09-27 22:27] LABS: Absolute Lymphocyte Count 0.52 X10^3/uL (0.83-4.51); Absolute Neutrophil Count 7.6 X10^3/uL (2.0-7.7); Basophil# 0.04 X10^3/uL; Basophil% 0.4 % (0-1); Eosinophil# 0.03 X10^3/uL; Eosinophils% 0.3 % (0-5); Hematocrit 39.1 % (37-47); Hemoglobin 12.9 g/dL (12.0-15.0); Lymphocyte # 0.52 X10^3/ul (0.83-4.51); Lymphocyte % 5.8 % (19-41); Mean Corpuscular Hgb 29.5 pg (27.0-32.0); Mean Corpuscular Volume 89.5 fL (81-99); Mean Platelet Vol. 10.9 fl (6.2-12.0); Monocyte# 0.75 X10^3/uL; Monocyte% 8.4 % (0-10); NRBC Flagged by Analyzer 0 % (0-5); Neutrophil # 7.55 X10^3/uL (2.7-7.7); Neutrophil % 84.7 % (47-70); POSITIVE DIFFERENTIAL YES; Platelet Count 158 K/mm3 (150-450); RBC Distribution Width CV 13.9 % (11.6-14.6); RBC Distribution Width SD 45.3 fl (35.1-43.9); Red Blood Count 4.37 M/mm3 (4.2-5.4); White Blood Count 8.9 K/mm3 (4.4-11.0)
[2023-09-27] MEDS: Ipratropium/Albuterol Sulfate 3 ML AMPUL.NEB INHALATION (22:30)
[2023-09-27] MEDS: Albuterol 2.5 MG/3 ML VIAL.NEB. INHALATION (22:30)
--- NOTE | 2023-09-27 22:30 | EDS_ITS ---
HPI History of Present Illness Chief Complaint: Shortness of Breath Narrative Narrative: 83-year-old female presenting with shortness of breath. She states that she started having a dry cough on Wednesday. She states she has not had a productive cough. She states that it is a painful cough when she coughs but is not having chest pain otherwise. She is short of breath progressively throughout the week. She states this afternoon it really started to get worse. She states she was seen at urgent care yesterday and tested for COVID, flu. These were negative. She states that she was also started on an antibiotic that she is supposed to take twice a day but she cannot recall what it is. She did not bring it with her. She states that she was told she had 103 ?F fever by EMS on the way and she states she was given 324 mg of aspirin because EMS was concerned she might have sepsis. She states that she has not had a fever throughout the week. She does have a history of A-fib but is not having palpitations. Patient is not on anticoagulation. Patient does states she sees Dr. Potts but states she does not have asthma or COPD. She states she saw him to obtain a BiPAP that she uses at night. Initially she stated she cleaned this daily but then stated that she cleans it once a week. Patient 87% on room air prior to arrival. She is currently on 4 L. [facility] Medical History Obesity TIA (transient ischemic attack) (12/2018) GI bleed (2018) Essential (primary) hypertension Gastritis (09/07/18) Osteoarthritis Anxiety Daytime somnolence Dysmetabolic syndrome X Allergic rhinitis Malignant melanoma of skin of trunk, except scrotum Hyperlipidemia FH: sudden cardiac (SCD) Colitis Depression Paroxysmal atrial fibrillation Sick sinus syndrome Carotid artery disease Home Medications ?Medication ?Instructions ?Recorded ?Last Taken ?Type lorazepam 0.5 mg tablet 0.5 mg PO BID PRN PRN Anxiety 05/13/16 Unknown History aspirin 81 mg tablet,delayed 81 mg PO QDAY #90 tabs 12/27/18 Unknown Rx release (Adult Low Dose Aspirin) coenzyme Q10 100 mg capsule (Co 100 mg PO DAILY 01/23/20 Unknown History Q-10) rosuvastatin 10 mg tablet 10 mg PO DAILY 01/23/20 Unknown History cholecalciferol (vitamin D3) 50 50 mcg PO DAILY 06/02/21 Unknown History mcg (2,000 unit) capsule hydrochlorothiazide 25 mg tablet 12.5 mg PO BID 11/25/21 Unknown History sucralfate 100 mg/mL oral 10 ml PO TID PRN digestion 11/25/21 Unknown History suspension paroxetine HCl 20 mg tablet 20 mg PO DAILY 12/03/22 Unknown History amiodarone 200 mg tablet 200 mg PO DAILY #90 tabs 02/11/23 Unknown Rx diltiazem HCl 240 mg 240 mg PO QHS #90 caps 04/08/23 Unknown Rx capsule,extended release 24 hr losartan 100 mg tablet 100 mg PO DAILY #90 tabs 08/10/23 Unknown Rx cyclosporine 0.05 % eye drops in a 1 drp EACH EYE Q12H 09/27/23 Unknown History dropperette (Restasis) Allergy/AdvReac Type Severity Reaction Status Date / Time ciprofloxacin (From Cipro) Allergy Rash Verified 11/25/21 14:46 Penicillins (PCN) Allergy Hives Verified 11/25/21 14:46 Sulfa (Sulfonamide Allergy Hives Verified 11/25/21 14:46 Antibiotics) Beta-Blockers AdvReac Other Verified 11/25/21 14:46 (Beta-Adrenergic Bloc hydrocodone (From Vicodin) AdvReac Other Verified 11/25/21 14:46 lisinopril AdvReac cough Verified 11/25/21 14:46 meperidine (From Demerol) AdvReac Vomiting Verified 11/25/21 14:46 pravastatin AdvReac Other Verified 11/25/21 14:46 Family History Grandfather Myocardial infarction Sudden cardiac Father Myocardial infarction CAD (coronary artery disease) CHF (congestive heart failure) Mother Myocardial infarction CAD (coronary artery disease) A-fib Brother A-fib CHF (congestive heart failure) Brother Cancer Son Diabetes Son Hypertension Surgical History History of permanent cardiac pacemaker placement (06/09/21) History of esophagogastroduodenoscopy (EGD) (09/07/18) History of left heart catheterization (LHC) (05/2011) 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) History of total right knee replacement (TKR) (~08/2011) History of right hip replacement (~2003) History of cholecystectomy History of total left knee replacement (TKR) Social History Smoking Status: Never smoker alcohol intake: never substance use type: does not use caffeine: Yes what type of physical activity do you participate in: none seatbelt use: always ROS ROS ED Constitutional Constitutional ED: Reports fever(s); Denies chills or sweats Eyes Eyes: Denies blurry vision or change in vision ENT ENT ED: Denies ear pain or sore throat Cardiovascular Cardiovascular: Denies chest pain, palpitations or racing heartbeat Respiratory/Chest Respiratory/Chest: Reports cough, dyspnea and dyspnea on exertion; Denies sputum Gastrointestinal Gastrointestinal: Denies abdominal pain, constipation, diarrhea, nausea or vomiting Genitourinary Genitourinary ED: Denies dysuria, hematuria or urinary frequency Musculoskeletal Musculoskeletal: Denies arthralgias, myalgias or neck pain Integumentary Denies abscess, Abrasions or rash Neurologic Neurologic: Denies headache(s), paresthesias or weakness Psychiatric Psychiatric: Denies anxiety, depression, suicidal ideation or suicidal thoughts Endocrine Endocrinology: Denies polydipsia or polyuria EXAM Physical Exam Const Vital Signs: 09/27/23 21:59 09/27/23 22:04 09/27/23 22:05 Temperature 99.8 F H 99.8 F H Temperature Source Oral Oral Pulse Rate 77 77 Respiratory Rate 21 H 23 H Respiratory Effort Short of Breath Blood Pressure 189/70 H 189/70 H Blood Pressure Mean 109 109 Pulse Ox 93 93 Oxygen Delivery Method Nasal Cannula Nasal Cannula Nasal Cannula Oxygen Flow Rate (L/min) 2 2 2 09/27/23 22:07 09/27/23 22:30 09/27/23 22:57 Temperature Temperature Source Pulse Rate 72 73 Respiratory Rate 18 19 H Respiratory Effort Blood Pressure 175/55 H Blood Pressure Mean 95 Pulse Ox 92 92 Oxygen Delivery Method Nasal Cannula Nasal Cannula Oxygen Flow Rate (L/min) 2 2 09/27/23 23:00 09/27/23 23:04 Temperature 99.6 F H Temperature Source Oral Pulse Rate 73 77 Respiratory Rate 19 H 20 H Respiratory Effort Blood Pressure 175/55 H 175/55 H Blood Pressure Mean 95 95 Pulse Ox 92 92 Oxygen Delivery Method Nasal Cannula Nasal Cannula Oxygen Flow Rate (L/min) 2 2 Positive well nourished General Appearance ED: DANICA ANDINO Reports moist mucous membranes Eyes PERRL and EOMs intact bilaterally Neck no lymphadenopathy Resp normal respiratory effort Auscultation: wheezes anterior Cardio regular rate and regular rhythm GI non-tender Neuro oriented x3 and CN's II-XII intact bilaterally Sensorium / Orientation: alert Motor Exam: strength 5/5 throughout Psych mental status grossly normal Skin no wounds and skin turgor normal MDM MDM MDM Narrative Medical decision making narrative: Patient presenting with shortness of breath. He reportedly had a fever higher to arrival and was hypoxic down to 87%. She does not typically wear oxygen. She has no fever here on arrival. Differential includes pneumonia, CHF, dysrhythmia, ACS, dehydration, anemia, electrolyte abnormalities, bronchitis. Patient previously tested for COVID and influenza. CBC will be obtained to assess white blood cell count, hemoglobin, platelets. BMP to assess renal f unction, electrolytes, glucose. High-sensitivity troponin EKG to assess for ischemia/dysrhythmia. Chest x-ray to rule out pneumonia. Patient given breathing treatments because she is wheezing. She was also given Solu-Medrol 125. Given her hypoxia she will likely need to be admitted. CBC shows normal white count 8.9. Hemoglobin 12.9, platelets 158. Renal function electrolytes within normal limits with exception of potassium of 3.1. This was repleted orally. High-sensitivity troponin is 4. EKG sinus rhythm at [address]-T wave abnormality. No STEMI. Chest x-ray on my interpretation shows bilateral multifocal infiltrates. Radiology interpretation agrees. Patient started on Rocephin and azithromycin. Will discuss with hospitalist due to the pneumonia with hypoxia. Impression: 1. Hypoxia 2. Acute acquired pneumonia 3. Hypokalemia Lab Data Attestation: I reviewed the patient's lab results. Labs: Laboratory Results - last 24 hr 09/27/23 22:15 WBC 8.9 RBC 4.37 Hgb 12.9 Hct 39.1 MCV 89.5 MCH 29.5 MCHC 33.0 RDW Std Deviation 45.3 H RDW Coeff of Chandu 13.9 Plt Count 158 MPV 10.9 Immature Gran % (Auto) 0.400 Neut % (Auto) 84.7 H Lymph % (Auto) 5.8 L [place] % (Auto) 8.4 Eos % (Auto) 0.3 Baso % (Auto) 0.4 Absolute Neuts (auto) 7.6 Absolute Lymphs (auto) 0.52 L Nucleated RBC % 0 Sodium 136 Potassium 3.1 L Chloride 101 Carbon Dioxide 28.0 Anion Gap 7 BUN 15 Creatinine 0.57 Est GFR (MDRD) Af Amer 131 Est GFR (MDRD) Non-Af 108 BUN/Creatinine Ratio 26.4 H Glucose 129 H Calcium 8.3 L Troponin I High Sens 54 Radiography Diagnostic Testing: Clinical Impression(s) from Imaging Studies Chest X-Ray 09/27/23 22:25 IMPRESSION: Bilateral and multifocal infiltrates consistent with pneumonia. Recommend short-term follow-up to complete resolution. Electronically Signed: Osmani Chance MD at 23:25 EDT Reading Location ID and State: [address] [place] [address] Tel , Service support , Discharge Plan Triage Chief Complaint: Shortness of Breath ED Provider: Norm Olson Dx/Rx/DC Orders Prescriptions: No Action aspirin [Adult Low Dose Aspirin] 81 mg tablet,delayed release (DR/EC) 81 mg PO QDAY Qty: 90 3RF rosuvastatin 10 mg tablet 10 mg PO DAILY coenzyme Q10 [Co Q-10] 100 mg capsule 100 mg PO DAILY sucralfate 100 mg/mL suspension 10 ml PO TID PRN (Reason: digestion) Patient Comments: TAKE 10 ML BY MOUTH 4 TIMES DAILY hydrochlorothiazide 25 mg tablet 12.5 mg PO BID cholecalciferol (vitamin D3) 50 mcg (2,000 unit) capsule 50 mcg PO DAILY paroxetine HCl 20 mg tablet 20 mg PO DAILY lorazepam 0.5 MG tablet 0.5 mg PO BID PRN PRN (Reason: Anxiety) cyclosporine [Restasis] 0.05 % dropperette 1 drp EACH EYE Q12H amiodarone 200 mg tablet 200 mg PO DAILY Qty: 90 3RF diltiazem HCl 240 mg capsule,extended release 24hr 240 mg PO QHS Qty: 90 3RF losartan 100 mg tablet 100 mg PO DAILY Qty: 90 3RF Primary Care Provider: Michael Puga Referrals: Michael Puga DO [Primary Care Provider] - Print Language: [place]
[2023-09-27] MEDS: MethylPREDNISolone 125 MG/2 ML Vial IV (22:37)
[2023-09-27 22:45] LABS: Anion Gap 7 (5-15); BUN 15 mg/dL (7-18); BUN/Creat Ratio 26.4 RATIO (10-20); Calcium,Total 8.3 mg/dL (8.5-10.1); Chloride 101 mmol/L (98-107); Creatinine, Serum 0.57 mg/dL (0.55-1.02); EST Glomerular Filtration Rate 108 mL/min (>60); Est Glom Filt Rate - Afr Amer 131 mL/min (>60); Glucose 129 mg/dL (74-106); Potassium 3.1 mmol/L (3.5-5.1); Sodium Level 136 mmol/L (136-145); Troponin-I HS 54 pg/mL (3.0-54.0)
[2023-09-27] MEDS: Potassium Chloride Oral Tablet 20 MEQ 40 MEQ PO (23:16)
--- NOTE | 2023-09-27 23:28 | HP.PCM_ITS ---
[facility] - General General Date of Admission: 09/27/23 Date of Service: 09/27/23 Chief Complaint: Shortness of breath HPI Narrative MICHAEL MEIER, is a 83 F who presents to the emergency room with chief complaint of shortness of breath. Patient has had a febrile illness beginning last Wednesday for which she sought care at urgent care and was placed on antibiotic but she does not know which. Over the last 24 hours she has progressively become more short of breath and was 86% on room air upon arrival to the hospital. She required oxygen therapy to maintain her saturation greater than 90%. Chest x-ray reveals a right lower lobe pneumonia. She has had fevers reportedly 103 degrees for which she was given aspirin by EMS. She is feeling more comfortable here in the emergency room after receiving oxygen therapy. She will be admitted to general medical floor for treatment of community-acquired pneumonia. She does have BiPAP therapy at home and she will be allowed to use her home machine if necessary. [facility] Medical History Obesity TIA (transient ischemic attack) (12/2018) GI bleed (2017) Essential (primary) hypertension Gastritis (09/07/18) Osteoarthritis Anxiety Daytime somnolence Dysmetabolic syndrome X Allergic rhinitis Malignant melanoma of skin of trunk, except scrotum Hyperlipidemia FH: sudden cardiac (SCD) Colitis Depression Paroxysmal atrial fibrillation Sick sinus syndrome Carotid artery disease Home Medications ?Medication ?Instructions ?Recorded ?Last Taken ?Type lorazepam 0.5 mg tablet 0.5 mg PO BID PRN PRN Anxiety 05/13/16 Unknown History aspirin 81 mg tablet,delayed 81 mg PO QDAY #90 tabs 12/27/18 Unknown Rx release (Adult Low Dose Aspirin) coenzyme Q10 100 mg capsule (Co 100 mg PO DAILY 01/23/20 Unknown History Q-10) rosuvastatin 10 mg tablet 10 mg PO DAILY 01/23/20 Unknown History cholecalciferol (vitamin D3) 50 50 mcg PO DAILY 06/02/21 Unknown History mcg (2,000 unit) capsule hydrochlorothiazide 25 mg tablet 12.5 mg PO BID 11/25/21 Unknown History sucralfate 100 mg/mL oral 10 ml PO TID PRN digestion 11/25/21 Unknown History suspension paroxetine HCl 20 mg tablet 20 mg PO DAILY 08/03/23 Unknown History amiodarone 200 mg tablet 200 mg PO DAILY #90 tabs 02/11/23 Unknown Rx diltiazem HCl 240 mg 240 mg PO QHS #90 caps 04/08/23 Unknown Rx capsule,extended release 24 hr losartan 100 mg tablet 100 mg PO DAILY #90 tabs 08/10/23 Unknown Rx cyclosporine 0.05 % eye drops in a 1 drp EACH EYE Q12H 09/27/23 Unknown History dropperette (Restasis) Allergy/AdvReac Type Severity Reaction Status Date / Time ciprofloxacin (From Cipro) Allergy Rash Verified 11/25/21 14:46 Penicillins (PCN) Allergy Hives Verified 11/25/21 14:46 Sulfa (Sulfonamide Allergy Hives Verified 11/25/21 14:46 Antibiotics) Beta-Blockers AdvReac Other Verified 11/25/21 14:46 (Beta-Adrenergic Bloc hydrocodone (From Vicodin) AdvReac Other Verified 11/25/21 14:46 lisinopril AdvReac cough Verified 11/25/21 14:46 meperidine (From Demerol) AdvReac Vomiting Verified 11/25/21 14:46 pravastatin AdvReac Other Verified 11/25/21 14:46 Family History Grandfather Myocardial infarction Sudden cardiac Father Myocardial infarction CAD (coronary artery disease) CHF (congestive heart failure) Mother Myocardial infarction CAD (coronary artery disease) A-fib Brother A-fib CHF (congestive heart failure) Brother Cancer Son Diabetes Son Hypertension Surgical History History of permanent cardiac pacemaker placement (06/09/21) History of esophagogastroduodenoscopy (EGD) (09/07/18) History of left heart catheterization (LHC) (05/2011) 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) History of total right knee replacement (TKR) (~08/2011) History of right hip replacement (~2003) History of cholecystectomy History of total left knee replacement (TKR) Social History Smoking Status: Never smoker alcohol intake: never substance use type: does not use caffeine: Yes what type of physical activity do you participate in: none seatbelt use: always ROS Constitutional Constitutional: Reports chills and fever(s) Eyes Eyes: Denies blurry vision ENT HEENT: Denies abnormal hearing Cardiovascular Cardiovascular: Denies chest pain Respiratory/Chest Respiratory/Chest: Reports cough, shortness of breath with exertion and wheezing Gastrointestinal Gastrointestinal: Denies abdominal pain Genitourinary Genitourinary: Denies dysuria Musculoskeletal Musculoskeletal: Denies back pain Integumentary Integumentary: Reports dry skin; Denies wounds Neurologic Neurologic: Denies abnormal gait Psychiatric Psychiatric: Denies anxiety Endocrine Endocrinology: Denies change in body appearance Vital Signs Vital Signs Vital Signs: 09/27/23 21:59 09/27/23 22:04 09/27/23 22:05 Temperature 99.8 F H 99.8 F H Temperature Source Oral Oral Pulse Rate 77 77 Respiratory Rate 21 H 23 H Respiratory Effort Short of Breath Blood Pressure 189/70 H 189/70 H Blood Pressure Mean 109 109 Pulse Ox 93 93 Oxygen Delivery Method Nasal Cannula Nasal Cannula Nasal Cannula Oxygen Flow Rate (L/min) 2 2 2 09/27/23 22:07 09/27/23 22:30 09/27/23 22:57 Temperature Temperature Source Pulse Rate 72 73 Respiratory Rate 18 19 H Respiratory Effort Blood Pressure 175/55 H Blood Pressure Mean 95 Pulse Ox 92 92 Oxygen Delivery Method Nasal Cannula Nasal Cannula Oxygen Flow Rate (L/min) 2 2 09/27/23 23:00 09/27/23 23:04 Temperature 99.6 F H Temperature Source Oral Pulse Rate 73 77 Respiratory Rate 19 H 20 H Respiratory Effort Blood Pressure 175/55 H 175/55 H Blood Pressure Mean 95 95 Pulse Ox 92 92 Oxygen Delivery Method Nasal Cannula Nasal Cannula Oxygen Flow Rate (L/min) 2 2 Physical Exam Const alert and oriented x3 General Appearance: cooperative and well developed HEENT normocephalic and head/scalp atraumatic Eyes PERRL Neck no lymphadenopathy Lymph Lymphatic: no lymphadenopathy noted Resp Auscultation: rhonchi right lower, wheezes and diminished lung sounds Cardio regular rhythm, S1 normal heart sound and S2 normal heart sound GI normal to inspection, nondistended, normoactive bowel sounds Extremity normal capillary refill General Extremity: no tenderness to palpation of joints or extremities Skin General Skin Exam: no breakdown Neuro no focal motor deficits and no sensory deficits noted Psych thought process normal, cooperative and affect normal Results Lab / Micro Data 09/27/23 22:15 09/27/23 22:15 Labs: Laboratory Results - last 24 hr 09/27/23 22:15: WBC 8.9, RBC 4.37, Hgb 12.9, Hct 39.1, MCV 89.5, MCH 29.5, MCHC 33.0, RDW Std Deviation 45.3 H, RDW Coeff of Chandu 13.9, Plt Count 158, MPV 10.9, Immature Gran % (Auto) 0.400, Neut % (Auto) 84.7 H, Lymph % (Auto) 5.8 L, [place] % (Auto) 8.4, Eos % (Auto) 0.3, Baso % (Auto) 0.4, Absolute Neuts (auto) 7.6, A bsolute Lymphs (auto) 0.52 L, Nucleated RBC % 0, Sodium 136, Potassium 3.1 L, Chloride 101, Carbon Dioxide 28.0, Anion Gap 7, BUN 15, Creatinine 0.57, Est GFR (MDRD) Af Amer 131, Est GFR (MDRD) Non-Af 108, BUN/Creatinine Ratio 26.4 H, G lucose 129 H, Calcium 8.3 L, Troponin I High Sens 54 Imaging Radiology Impression Chest X-Ray 09/27/23 22:25 IMPRESSION: Bilateral and multifocal infiltrates consistent with pneumonia. Recommend short-term follow-up to complete resolution. Electronically Signed: Osmani Chance MD at 23:25 EDT Reading Location ID and State: [facility] / [place] Tel , Service support , Assessment & Plan Assessment/Plan (1) History of permanent cardiac pacemaker placement: (2) Essential (primary) hypertension: (3) Hyperlipidemia: QUALIFIERS: Hyperlipidemia type: pure hypercholesterolemia Q ualified Code(s): E78.00 - Pure hypercholesterolemia, unspecified; E78.0 - Pure hypercholesterolemia (4) Obesity: (5) Community acquired pneumonia: PLAN: Plan 1 community-acquired pneumonia?hypoxia?admit patient to general medical floor continue oxygen therapy per routine protocol, initiate IV antibiotics with Rocephin and azithromycin per routine protocol for community-acquired pneumonia. Will add albuterol inhalation treatments every 4 hours as needed. At this time we will hold off on steroids. Will repeat CBC in a.m. 2. Hypertension?continue routine home medication 3. Hyperlipidemia?continue routine statin medication 4. DVT prophylaxis?low molecular weight heparin Charges/Coding Visit Charges Inpatient E&M: 78987 Init Hosp L2
[2023-09-27] MEDS: Ceftriaxone 1 GM/50 ML BAG IV (23:42)
[2023-09-28] VITALS (11 sets, daily range): BP systolic 145–176; BP diastolic 55–84; PULSE 63–87; RESP 15–20; TEMP 36.4–37.1; O2SAT 86–96; BMI 38.0
[2023-09-28] MEDS: Azithromycin 500 MG in Dextrose 5%-Water (250mL Bag) 250 ML 250 MG IV ×2 (00:44→22:03)
[2023-09-28 07:17] LABS: Absolute Lymphocyte Count 0.43 X10^3/uL (0.83-4.51); Absolute Neutrophil Count 7.6 X10^3/uL (2.0-7.7); Basophil# 0.01 X10^3/uL; Basophil% 0.1 % (0-1); Hematocrit 38.1 % (37-47); Hemoglobin 12.6 g/dL (12.0-15.0); Lymphocyte # 0.43 X10^3/ul (0.83-4.51); Lymphocyte % 5.2 % (19-41); Mean Corp Hgb Conc 33.1 g/dL (32-36); Mean Corpuscular Hgb 29.5 pg (27.0-32.0); Mean Corpuscular Volume 89.2 fL (81-99); Mean Platelet Vol. 10.6 fl (6.2-12.0); Monocyte# 0.12 X10^3/uL; Monocyte% 1.5 % (0-10); NRBC Flagged by Analyzer 0 % (0-5); Neutrophil # 7.63 X10^3/uL (2.7-7.7); Neutrophil % 92.7 % (47-70); POSITIVE DIFFERENTIAL YES; Platelet Count 159 K/mm3 (150-450); RBC Distribution Width CV 13.8 % (11.6-14.6); RBC Distribution Width SD 45.1 fl (35.1-43.9); Red Blood Count 4.27 M/mm3 (4.2-5.4); White Blood Count 8.2 K/mm3 (4.4-11.0)
[2023-09-28 07:41] LABS: Anion Gap 5 (5-15); BUN 12 mg/dL (7-18); BUN/Creat Ratio 20.5 RATIO (10-20); Calcium,Total 8.5 mg/dL (8.5-10.1); Chloride 106 mmol/L (98-107); Creatinine, Serum 0.59 mg/dL (0.55-1.02); EST Glomerular Filtration Rate 104 mL/min (>60); Est Glom Filt Rate - Afr Amer 126 mL/min (>60); Estimated Creatinine Clearance 64.71 ml/min; Glucose 169 mg/dL (74-106); Potassium 3.6 mmol/L (3.5-5.1); Sodium Level 138 mmol/L (136-145)
[2023-09-28] MEDS: guaiFENesin 10 ML UDC (200MG/10ML) 20 ML PO (09:45)
[2023-09-28] MEDS: BENZOCAINE/MENTHOL 1 LOZENGE MUCOUS MEM ×2 (09:45→18:41)
[2023-09-28] MEDS: Aspirin E.C. 81 MG Tablet PO (09:46)
[2023-09-28] MEDS: Losartan Potassium 100 MG Tablet PO (09:46)
[2023-09-28] MEDS: Paroxetine 20 MG Tablet PO (09:46)
[2023-09-28] MEDS: Amiodarone 200 MG Tablet PO (09:46)
[2023-09-28] MEDS: Enoxaparin 40 MG/0.4 ML Syringe SC (09:47)
[2023-09-28] MEDS: Acetaminophen 325 MG Tablet 650 MG PO ×2 (11:12→18:40)
--- NOTE | 2023-09-28 11:13 | CASEMGMT ---
GLYNN STEPHENS Assessment Face to Face with patient for initial transition planning/care coordination assessment. GLYNN STEPHENS introduced self and role at [facility], pt voices understanding. Pt is A&Ox4 and is resting comfortably in bed and is calm. Care providers, pharmacy, and demographics verified. Admitting dx: Community Acquired Pneumonia PCP: Michael Puga Specialists: VAIBHAV, [facility] Preferred Pharmacy: [facility] Insurance: MCR A/B, C[employer] Prescription Benefit: Yes LNOK: Yumiko Elena (ALEJO), Jamari Renee (Son) Living Arrangements: Pt lives alone in a mobile home with a ramp to enter ADLs/IADLs: Ind Transportation: Self DME: Confirmed 2L @ HS bleed through BiPAP supplied through [email or web address]. Pt states that she has an oxygen concentrator. Pt denies having portability or a pulse ox. Pt educated on the cost of a pulse Ox and states that she can afford to buy one. Pt also reports that she has a cane, BP Cuff, walk in shower with GB and chair. HHC/SNF: States history of HHC after Hip surgery in 2003. Pt states that the HH agency was out of [place]. Pt also reports SNF history at [facility], [facility], and [facility] after Hip Sx in 2003, 2004, and 2019. Pt?s goal: Home Plan: Home with potential increased home O2. Pt plans to return home once medically ready. Pt denies the need for HHC, OP therapy, SNF, CCN, or pt link. Pt states that she feels safe returning home once medically ready. CM to follow oxygen needs in regard to safe DC from [facility]. Mateo Mcdowell RN, CM
--- NOTE | 2023-09-28 13:34 | CASEMGMT ---
Social Work Pt confirms daughter Yumiko Braden is POA, GAURAV asked her to have her daughter bring in the documents as able. Pt states understanding. RIZWAN Williamson
--- NOTE | 2023-09-28 13:49 | PN.HOSP_ITS ---
Reason for Visit Reason for Visit: Diagnoses Obesity, unspecified (09/27/23) Pure hypercholesterolemia (09/27/23) Pure hypercholesterolemia, unspecified (09/27/23) Essential (primary) hypertension (09/27/23) Pneumonia, unspecified organism (09/27/23) Presence of cardiac pacemaker (09/27/23) Subjective Subjective Patient was seen and examined today, she is on 2 L of oxygen at rest. Patient states she is coughing and producing some green sputum, I have ordered a sputum culture on the patient as well as a urine antigen for legionnaires disease and strep pneumo. Patient's respiratory panel today resulted positive for human metapneumovirus. I have elected at this time to keep her on IV antibiotics and wait for additional lab work to return. Objective Data Objective Data Vital Signs: Vital Signs Temp Pulse Resp BP Pulse Ox O2 Del Method O2 Flow Rate 98 F 67 15 160/69 H 96 Nasal Cannula 2 09/28/23 11:17 09/28/23 11:17 09/28/23 11:17 09/28/23 11:17 09/28/23 11:17 09/28/23 11:17 09/28/23 11:17 Oxygen Flow Rate (L/min) 2 Oxygen Delivery Method Nasal Cannula Weight: 103.5 kg Body Mass Index (BMI) 38.0 Intake & Output: Intake and Output for Last 24 Hours 09/26/23 09/27/23 09/28/23 23:59 23:59 23:59 Intake Total 400 / 400 980 / 980 Output Total 500 / 500 Balance 400 / 400 480 / 480 Lab / Micro Data 09/28/23 07:03 09/28/23 07:03 Labs: Laboratory Results - last 24 hr 09/27/23 22:15: WBC 8.9, RBC 4.37, Hgb 12.9, Hct 39.1, MCV 89.5, MCH 29.5, MCHC 33.0, RDW Std Deviation 45.3 H, RDW Coeff of Chandu 13.9, Plt Count 158, MPV 10.9, Immature Gran % (Auto) 0.400, Neut % (Auto) 84.7 H, Lymph % (Auto) 5.8 L, [place] % (Auto) 8.4, Eos % (Auto) 0.3, Baso % (Auto) 0.4, Absolute Neuts (auto) 7.6, A bsolute Lymphs (auto) 0.52 L, Nucleated RBC % 0, Sodium 136, Potassium 3.1 L, Chloride 101, Carbon Dioxide 28.0, Anion Gap 7, BUN 15, Creatinine 0.57, Est GFR (MDRD) Af Amer 131, Est GFR (MDRD) Non-Af 108, BUN/Creatinine Ratio 26.4 H, G lucose 129 H, Calcium 8.3 L, Troponin I High Sens 54 09/28/23 07:03: WBC 8.2, RBC 4.27, Hgb 12.6, Hct 38.1, MCV 89.2, MCH 29.5, MCHC 33.1, RDW Std Deviation 45.1 H, RDW Coeff of Chandu 13.8, Plt Count 159, MPV 10.6, Immature Gran % (Auto) 0.500, Neut % (Auto) 92.7 H, Lymph % (Auto) 5.2 L, [place] % (Auto) 1.5, Eos % (Auto) 0.0, Baso % (Auto) 0.1, Absolute Neuts (auto) 7.6, A bsolute Lymphs (auto) 0.43 L, Nucleated RBC % 0, Sodium 138, Potassium 3.6, Chloride 106, Carbon Dioxide 27.0, Anion Gap 5, BUN 12, Creatinine 0.59, Estim Creat Clear Calc 64.71, Est GFR (MDRD) Af Amer 126, Est GFR (MDRD) Non-Af 104, B UN/Creatinine Ratio 20.5 H, Glucose 169 H, Calcium 8.5 Micro: Microbiology 09/28/23 10:12 Mucosa - Nose Respiratory Panel (PCR) - Final Human [place] [facility] Diagnostic Testing: Radiology Impression Chest X-Ray 09/27/23 22:25 IMPRESSION: Bilateral and multifocal infiltrates consistent with pneumonia. Recommend short-term follow-up to complete resolution. Electronically Signed: Osmani Chance MD at 23:25 EDT , Physical Exam Const alert, oriented x3, no apparent distress and healthy appearing General Appearance: cooperative, well kempt and well developed Orientation / Consciousness: awake, oriented to person, oriented to place and oriented to time HEENT normocephalic and moist oral mucous membranes Eyes PERRL, EOMs intact bilaterally and conjunctivae normal Neck supple, no JVD, thyroid normal and no carotid bruits General: trachea midline Resp normal respiratory effort, no retractions and no use of accessory muscles Resp Narrative: Patient has some fine rales scattered over the lower lung ochoa bilaterally, no rhonchi or wheezes are noted however Auscultation: rales; Negative for rhonchi or wheezes Cardio regular rate, regular rhythm, S1 normal heart sound, S2 normal heart sound, no murmurs, no rub and no gallops GI normal to inspection, nondistended, normoactive bowel sounds, soft to palpation, non-tender and non-distended Extremity no clubbing, cyanosis or edema Skin no rashes or lesions noted General Skin Exam: no breakdown Neuro oriented x3, CN's II-XII intact bilaterally, no focal motor deficits and no sensory deficits noted Sensorium / Orientation: awake and alert Speech: speech normal Psych affect normal Assessment & Plan Assessment/Plan (1) Community acquired pneumonia: PLAN: Plan 1. Community-acquired pneumonia-most likely secondary to human metapneumovirus, bacterial pneumonia should also be ruled out however, again I have elected to keep the patient on antibiotics at this time, she will receive aerosol treatments, I do not believe she needs IV corticosteroids. #2 essential hypertension-patient will remain on her present medications, they will be adjusted as needed #3 paroxysmal atrial fibrillation-patient is on amiodarone #4 hypoxia secondary to #1-pulse ox will be monitored #5 hyperlipidemia-patient is on Crestor Total clinical time spent by myself addressing the patient's medical issues, reviewing all of her data, and collaborating with patient's care team: 35 minutes Charges/Coding Visit Charges Inpatient E&M: 64930 Subs Hosp L2
[2023-09-28] MEDS: Albuterol 2.5 MG/3 ML VIAL.NEB. INHALATION ×3 (17:32→23:28)
[2023-09-28] MEDS: guaiFENesin Dm 10 ML UDC PO (18:40)
[2023-09-28] MEDS: Sodium Chloride 0.65% 1 SPRAY SPRAY.BTL 2 SPRAY NASAL (18:41)
[2023-09-28] MEDS: Atorvastatin Calcium 20 MG Tablet PO (22:03)
[2023-09-28] MEDS: dilTIAZem CD 240 MG Capsule PO (22:03)
[2023-09-28] MEDS: LORazepam 0.5 MG Tablet PO (22:09)
[2023-09-28] MEDS: Ceftriaxone 1 GM/50 ML BAG IV (23:16)
[2023-09-29] VITALS (11 sets, daily range): BP systolic 127–147; BP diastolic 41–88; PULSE 62–75; RESP 15–22; TEMP 36.7–37.3; O2SAT 91–96
[2023-09-29] MEDS: Albuterol 2.5 MG/3 ML VIAL.NEB. INHALATION (01:35)
--- NOTE | 2023-09-29 02:04 | PCM.HOSP.N ---
Hospitalist Note Patient with oxygen requirement increased in addition to significant wheezing diffusely. Will add scheduled DuoNeb therapies in addition to IV Solu-Medrol and continue to monitor. From review of evaluation appears to have human metapneumovirus.
[2023-09-29] MEDS: Ipratropium/Albuterol Sulfate 3 ML AMPUL.NEB INHALATION ×6 (03:50→23:54)
--- NOTE | 2023-09-29 05:55 | RAD_ITS ---
STUDY: X-RAY CHEST REASON FOR EXAM: Female, 83 years old patient with pneumonia. TECHNIQUE: Single AP portable view of the chest. COMPARISON: September 27, 2023. FINDINGS: Patient has a left-sided intracardiac pacemaker. The lungs are expanded. There is bilateral heterogeneous air space consolidation. There appears to be small left-sided pleural effusion. There is mild cardiac enlargement. Normal mediastinum and isaak. Normal visualized pulmonary arteries. There is atherosclerotic calcification of the aortic arch with tortuosity. There are diffuse degenerative changes of the visualized thoracic spine. There are degenerative changes of both shoulders. There is no demonstrated abnormality of the visualized soft tissue structures of the upper abdomen. RAD/Chest 1 View (Portable) IMPRESSION: Bilateral multifocal airspace disease consistent with pneumonia appears similar to previous radiograph. Electronically Signed: Lissy Mcdowell MD at 6:20 EDT ,
[2023-09-29 06:50] LABS: Absolute Lymphocyte Count 0.43 X10^3/uL (0.83-4.51); Absolute Neutrophil Count 11.5 X10^3/uL (2.0-7.7); Basophil# 0.02 X10^3/uL; Basophil% 0.2 % (0-1); Hematocrit 36.5 % (37-47); Hemoglobin 11.9 g/dL (12.0-15.0); Lymphocyte # 0.43 X10^3/ul (0.83-4.51); Lymphocyte % 3.4 % (19-41); Mean Corp Hgb Conc 32.6 g/dL (32-36); Mean Corpuscular Hgb 29.6 pg (27.0-32.0); Mean Corpuscular Volume 90.8 fL (81-99); Mean Platelet Vol. 11.1 fl (6.2-12.0); Monocyte# 0.76 X10^3/uL; Monocyte% 5.9 % (0-10); NRBC Flagged by Analyzer 0 % (0-5); Neutrophil # 11.52 X10^3/uL (2.7-7.7); Neutrophil % 89.9 % (47-70); POSITIVE DIFFERENTIAL YES; Platelet Count 168 K/mm3 (150-450); RBC Distribution Width SD 46.9 fl (35.1-43.9); Red Blood Count 4.02 M/mm3 (4.2-5.4); White Blood Count 12.8 K/mm3 (4.4-11.0)
[2023-09-29 08:04] LABS: ALB/GLOB Ratio 0.8 RATIO (0.9-2.4); AST(SGOT) 39 U/L (15-37); Alanine Aminotransfer ALT/SGPT 50 U/L (13-56); Albumin, Serum 2.8 g/dL (3.2-5.0); Alkaline Phosphatase 70 U/L (45-117); Anion Gap 8 (5-15); BUN 16 mg/dL (7-18); BUN/Creat Ratio 19.2 RATIO (10-20); Calcium,Total 8.4 mg/dL (8.5-10.1); Chloride 102 mmol/L (98-107); Creatinine, Serum 0.84 mg/dL (0.55-1.02); EST Glomerular Filtration Rate 69 mL/min (>60); Est Glom Filt Rate - Afr Amer 84 mL/min (>60); Estimated Creatinine Clearance 61.63 ml/min; Globulin 3.3 g/dL (2.2-4.2); Glucose 167 mg/dL (74-106); Protein, Total 6.1 g/dL (6.4-8.2); Sodium Level 137 mmol/L (136-145)
[2023-09-29] MEDS: BENZOCAINE/MENTHOL 1 LOZENGE MUCOUS MEM ×3 (08:54→18:35)
[2023-09-29] MEDS: Amiodarone 200 MG Tablet PO (08:54)
[2023-09-29] MEDS: Losartan Potassium 100 MG Tablet PO (08:54)
[2023-09-29] MEDS: Aspirin E.C. 81 MG Tablet PO (08:54)
[2023-09-29] MEDS: Enoxaparin 40 MG/0.4 ML Syringe SC (08:55)
[2023-09-29] MEDS: Paroxetine 20 MG Tablet PO (08:55)
[2023-09-29] MEDS: Acetaminophen 325 MG Tablet 650 MG PO ×2 (08:56)
--- NOTE | 2023-09-29 12:12 | PCM.PN.HOSP ---
Reason for Visit Reason for Visit: Diagnoses Obesity, unspecified (09/27/23) Pure hypercholesterolemia (09/27/23) Pure hypercholesterolemia, unspecified (09/27/23) Essential (primary) hypertension (09/27/23) Pneumonia, unspecified organism (09/27/23) Presence of cardiac pacemaker (09/27/23) Subjective Subjective Patient was seen and examined today, she states that last night she had difficulty with wheezing and breathing. Patient was placed on IV corticosteroids by the night hospitalist. Today the patient's oxygen requirements 2 L. I have decided to decrease the patient's IV Solu-Medrol to 20 mg every 8 hours. Objective Data Objective Data Vital Signs: Vital Signs Temp Pulse Resp BP Pulse Ox O2 Del Method O2 Flow Rate 99 F 62 20 H 144/88 H 91 Nasal Cannula 2 09/29/23 08:59 09/29/23 10:57 09/29/23 10:57 09/29/23 08:59 09/29/23 10:57 09/29/23 10:57 09/29/23 10:57 Oxygen Flow Rate (L/min) 2 Oxygen Delivery Method Nasal Cannula Weight: 103.5 kg Body Mass Index (BMI) 38.0 Intake & Output: Intake and Output for Last 24 Hours 09/27/23 09/28/23 09/29/23 23:59 23:59 23:59 Intake Total 400 / 400 1610 / 2410 850 / 850 Output Total 1400 / 2050 650 / 650 Balance 400 / 400 210 / 360 200 / 200 Lab / Micro Data 09/29/23 06:30 09/29/23 06:30 Labs: Laboratory Results - last 24 hr 09/29/23 06:30: WBC 12.8 H, RBC 4.02 L, Hgb 11.9 L, Hct 36.5 L, MCV 90.8, MCH 29.6, MCHC 32.6, RDW Std Deviation 46.9 H, RDW Coeff of Chandu 14.0, Plt Count 168, MPV 11.1, Immature Gran % (Auto) 0.600, Neut % (Auto) 89.9 H, Lymph % (Auto) 3.4 L, [place] % (Auto) 5.9, Eos % (Auto) 0.0, Baso % (Auto) 0.2, Absolute Neuts (auto) 11.5 H, Absolute Lymphs (auto) 0.43 L, Nucleated RBC % 0, Sodium 137, Potassium 4.0, Chloride 102, Carbon Dioxide 27.0, Anion Gap 8, BUN 16, Creatinine 0.84, Estim Creat Clear Calc 61.63, Est GFR (MDRD) Af Amer 84, Est GFR (MDRD) Non-Af 69, BUN/Creatinine Ratio 19.2, Glucose 167 H, Calcium 8.4 L, Total Bilirubin 0.70, AST 39 H, ALT 50, Alkaline Phosphatase 70, Total Protein 6.1 L, Albumin 2.8 L, Globulin 3.3, Albumin/Globulin Ratio 0.8 L Micro: Microbiology 09/28/23 13:55 Sputum, Expectorated/Coughed Gram Stain - Final 09/28/23 13:55 Sputum, Expectorated/Coughed Respiratory Culture - Preliminary Appears to be normal respiratory marita. Further studies to follow. 09/28/23 14:00 Urine, Clean Catch Streptococcus pneumoniae Antigen (M - Final 09/28/23 14:00 Urine, Clean Catch Legionella Antigen - Final 09/28/23 10:12 Mucosa - Nose Respiratory Panel (PCR) - Final Human [place] Radiography Diagnostic Testing: Radiology Impression Chest X-Ray 09/29/23 05:55 IMPRESSION: Bilateral multifocal airspace disease consistent with pneumonia appears similar to previous radiograph. Electronically Signed: Lissy Mcdowell MD at 6:20 EDT Reading Location ID and State: [address] [place] [address] , Service support , Physical Exam Const alert, oriented x3 and no apparent distress General Appearance: cooperative, well kempt and well developed Orientation / Consciousness: awake, oriented to person, oriented to place and oriented to time HEENT normocephalic, head/scalp atraumatic and moist oral mucous membranes Eyes PERRL, EOMs intact bilaterally and conjunctivae normal Neck supple, no JVD, thyroid normal and no carotid bruits General: trachea midline Resp normal respiratory effort Resp Narrative: Patient has expiratory wheezing scattered over both lower lung ochoa, there are inspiratory rales at the bases bilaterally Auscultation: rales and wheezes; Negative for rhonchi Cardio regular rate, regular rhythm, S1 normal heart sound, S2 normal heart sound, no murmurs, no rub and no gallops GI normal to inspection, nondistended, normoactive bowel sounds, soft to palpation, non-tender and non-distended Extremity no clubbing, cyanosis or edema Skin no rashes or lesions noted General Skin Exam: no breakdown Neuro oriented x3, CN's II-XII intact bilaterally, no focal motor deficits and no sensory deficits noted Sensorium / Orientation: awake and alert Speech: speech normal Psych affect normal Assessment & Plan Assessment/Plan (1) Community acquired pneumonia: PLAN: Plan 1. Community-acquired pneumonia-most likely secondary to human metapneumovirus, bacterial pneumonia should also be ruled out however, again I have elected to keep the patient on antibiotics at this time, she will receive aerosol treatments, patient is now on IV corticosteroids, again I have lowered the dose today. Await sputum culture results #2 essential hypertension-patient will remain on her present medications, they will be adjusted as needed #3 paroxysmal atrial fibrillation-patient is on amiodarone #4 hypoxia secondary to #1-pulse ox will be monitored #5 hyperlipidemia-patient is on Crestor Total clinical time spent by myself addressing the patient's medical issues, reviewing all of her data, and collaborating with patient's care team: 35 minutes Charges/Coding Visit Charges Inpatient E&M: 17116 Subs Hosp L2
[2023-09-29] MEDS: guaiFENesin Dm 10 ML UDC PO (13:23)
[2023-09-29] MEDS: Glycerin/Hypromellose/PEG400 15 ml Bottle EACH EYE (13:23)
[2023-09-29] MEDS: Azithromycin 250 MG Tablet 500 MG PO (18:34)
[2023-09-29] MEDS: LORazepam 0.5 MG Tablet PO (21:05)
[2023-09-29] MEDS: dilTIAZem CD 240 MG Capsule PO (21:05)
[2023-09-30] VITALS (11 sets, daily range): BP systolic 140–169; BP diastolic 49–58; PULSE 61–75; RESP 16–20; TEMP 36.2–36.6; O2SAT 93–95
[2023-09-30] MEDS: guaiFENesin Dm 10 ML UDC PO ×2 (03:25→11:56)
[2023-09-30] MEDS: Ipratropium/Albuterol Sulfate 3 ML AMPUL.NEB INHALATION ×6 (03:36→23:35)
--- NOTE | 2023-09-30 09:04 | PN.HOSP_ITS ---
Reason for Visit Reason for Visit: Diagnoses Obesity, unspecified (09/27/23) Pure hypercholesterolemia (09/27/23) Pure hypercholesterolemia, unspecified (09/27/23) Essential (primary) hypertension (09/27/23) Pneumonia, unspecified organism (09/27/23) Presence of cardiac pacemaker (09/27/23) Subjective Subjective Patient was seen and examined today, she is still on 2 L of nasal cannula oxygen. Patient still has diffuse expiratory wheezes. Objective Data Objective Data Vital Signs: Vital Signs Temp Pulse Resp BP Pulse Ox O2 Del Method O2 Flow Rate 97.6 F L 61 18 140/55 H 93 Nasal Cannula 2 09/30/23 04:00 09/30/23 04:00 09/30/23 04:00 09/30/23 04:00 09/30/23 04:00 09/30/23 04:00 09/30/23 04:00 Oxygen Flow Rate (L/min) 2 Oxygen Delivery Method Nasal Cannula Weight: 103.5 kg Body Mass Index (BMI) 38.0 Intake & Output: Intake and Output for Last 24 Hours 09/28/23 09/29/23 09/30/23 23:59 23:59 23:59 Intake Total 1610 / 2410 1990 / 2790 800 / 800 Output Total 1400 / 2050 1350 / 1350 Balance 210 / 360 640 / 1440 800 / 800 Lab / Micro Data 09/29/23 06:30 09/29/23 06:30 Micro: Microbiology 09/28/23 13:55 Sputum, Expectorated/Coughed Gram Stain - Final 09/28/23 13:55 Sputum, Expectorated/Coughed Respiratory Culture - Final 09/28/23 14:00 Urine, Clean Catch Streptococcus pneumoniae Antigen (M - Final 09/28/23 14:00 Urine, Clean Catch Legionella Antigen - Final 09/28/23 10:12 Mucosa - Nose Respiratory Panel (PCR) - Final Human [place] Physical Exam Narrative alert, oriented x3 and no apparent distress General Appearance: cooperative, well kempt and well developed Orientation / Consciousness: awake, oriented to person, oriented to place and oriented to time HEENT normocephalic, head/scalp atraumatic and moist oral mucous membranes Eyes PERRL, EOMs intact bilaterally and conjunctivae normal Neck supple, no JVD, thyroid normal and no carotid bruits General: trachea midline Resp normal respiratory effort Resp Narrative: Patient has expiratory wheezing scattered over both lower lung ochoa, there are inspiratory rales at the bases bilaterally Auscultation: rales and wheezes; Negative for rhonchi Cardio regular rate, regular rhythm, S1 normal heart sound, S2 normal heart sound, no murmurs, no rub and no gallops GI normal to inspection, nondistended, normoactive bowel sounds, soft to palpation, non-tender and non-distended Extremity no clubbing, cyanosis or edema Skin no rashes or lesions noted General Skin Exam: no breakdown Neuro oriented x3, CN's II-XII intact bilaterally, no focal motor deficits and no sensory deficits noted Sensorium / Orientation: awake and alert Speech: speech normal Psych affect normal Assessment & Plan Assessment/Plan (1) Community acquired pneumonia: PLAN: Plan 1. Community-acquired pneumonia-most likely secondary to human metapneumovirus, I stopped the patient's IV antibiotics yesterday, she did have 3 doses of Zithromax however, patient is on IV corticosteroids, I will increase the dose to 40 mg every 8 hours of Solu-Medrol #2 essential hypertension-patient will remain on her present medications, they will be adjusted as needed #3 paroxysmal atrial fibrillation-patient is on amiodarone #4 hypoxia secondary to #1-pulse ox will be monitored #5 hyperlipidemia-patient is on Crestor Total clinical time spent by myself addressing the patient's medical issues, reviewing all of her data, and collaborating with patient's care team: 35 minutes Charges/Coding Visit Charges Inpatient E&M: 12328 Subs Hosp L2
[2023-09-30] MEDS: Enoxaparin 40 MG/0.4 ML Syringe SC (09:09)
[2023-09-30] MEDS: Losartan Potassium 100 MG Tablet PO (09:09)
[2023-09-30] MEDS: Aspirin E.C. 81 MG Tablet PO (09:09)
[2023-09-30] MEDS: Amiodarone 200 MG Tablet PO (09:09)
[2023-09-30] MEDS: Paroxetine 20 MG Tablet PO (09:09)
[2023-09-30] MEDS: BENZOCAINE/MENTHOL 1 LOZENGE MUCOUS MEM (11:56)
[2023-09-30] MEDS: 0.9% Saline Lock 10 ML Syringe IV ×2 (16:55→20:18)
[2023-09-30] MEDS: dilTIAZem CD 240 MG Capsule PO (20:17)
[2023-09-30] MEDS: LORazepam 0.5 MG Tablet PO (22:02)
[2023-10-01] VITALS (15 sets, daily range): BP systolic 145–189; BP diastolic 53–74; PULSE 60–68; RESP 17–20; TEMP 36.6–37.1; O2SAT 87–98
[2023-10-01] MEDS: guaiFENesin Dm 10 ML UDC PO ×2 (02:33→23:34)
[2023-10-01] MEDS: BENZOCAINE/MENTHOL 1 LOZENGE MUCOUS MEM ×2 (02:33→23:34)
[2023-10-01] MEDS: Ipratropium/Albuterol Sulfate 3 ML AMPUL.NEB INHALATION ×6 (03:47→23:25)
[2023-10-01] MEDS: 0.9% Saline Lock 10 ML Syringe IV ×4 (05:06→21:03)
[2023-10-01] MEDS: Paroxetine 20 MG Tablet PO (09:21)
[2023-10-01] MEDS: Amiodarone 200 MG Tablet PO (09:21)
[2023-10-01] MEDS: Aspirin E.C. 81 MG Tablet PO (09:21)
[2023-10-01] MEDS: Enoxaparin 40 MG/0.4 ML Syringe SC (09:22)
[2023-10-01] MEDS: Losartan Potassium 100 MG Tablet PO (09:22)
[2023-10-01] MEDS: Furosemide 40 MG/4 ML Vial IV (09:24)
--- NOTE | 2023-10-01 09:58 | CASEMGMT ---
Addendum entered by Stephy Saba 10/01/23 15:12: GLYNN STEPHENS recieved call back from [facility] and they are able to accept patient with start of care for Wednesday. GLYNN STEPHENS updated patient and discharge plan. Original Note: GLYNN STEPHENS in to discuss needs at discharge. Patient states she would like [facility] for SN. Patient declined HHC list and prefers [facility]. Patient is active with [employer] for oxygen at , will monitor for increase and home oxygen. Patient denied further questions or concerns. GLYNN STEPHENS made referral to [facility], awaiting acceptance. Green sheet on chart.
--- NOTE | 2023-10-01 13:38 | PCM.PN.HOSP ---
Reason for Visit Reason for Visit: Diagnoses Obesity, unspecified (09/27/23) Pure hypercholesterolemia (09/27/23) Pure hypercholesterolemia, unspecified (09/27/23) Essential (primary) hypertension (09/27/23) Pneumonia, unspecified organism (09/27/23) Presence of cardiac pacemaker (09/27/23) Subjective Subjective Patient was seen and examined today, she continues to have wheezing, she is on 3 L of oxygen via nasal cannula. Objective Data Objective Data Vital Signs: Vital Signs Temp Pulse Resp BP Pulse Ox O2 Del Method O2 Flow Rate 98.7 F 61 17 160/63 H 93 Nasal Cannula 3 10/01/23 09:16 10/01/23 12:01 10/01/23 12:01 10/01/23 09:16 10/01/23 09:16 10/01/23 09:31 10/01/23 09:31 Oxygen Flow Rate (L/min) 3 Oxygen Delivery Method Nasal Cannula Weight: 103.5 kg Body Mass Index (BMI) 38.0 Intake & Output: Intake and Output for Last 24 Hours 09/29/23 09/30/23 10/01/23 23:59 23:59 23:59 Intake Total 1990 / 2790 800 / 950 150 / 150 Output Total 1350 / 1350 Balance 640 / 1440 800 / 950 150 / 150 Lab / Micro Data 09/29/23 06:30 09/29/23 06:30 Micro: Microbiology 09/28/23 13:55 Sputum, Expectorated/Coughed Gram Stain - Final 09/28/23 13:55 Sputum, Expectorated/Coughed Respiratory Culture - Final 09/28/23 14:00 Urine, Clean Catch Streptococcus pneumoniae Antigen (M - Final 09/28/23 14:00 Urine, Clean Catch Legionella Antigen - Final 09/28/23 10:12 Mucosa - Nose Respiratory Panel (PCR) - Final Human [place] Physical Exam Narrative alert, oriented x3 and no apparent distress General Appearance: cooperative, well kempt and well developed Orientation / Consciousness: awake, oriented to person, oriented to place and oriented to time HEENT normocephalic, head/scalp atraumatic and moist oral mucous membranes Eyes PERRL, EOMs intact bilaterally and conjunctivae normal Neck supple, no JVD, thyroid normal and no carotid bruits General: trachea midline Resp normal respiratory effort Resp Narrative: Patient has expiratory wheezing scattered over both lower lung ochoa, there are inspiratory rales at the bases bilaterally Auscultation: rales and wheezes; Negative for rhonchi Cardio regular rate, regular rhythm, S1 normal heart sound, S2 normal heart sound, no murmurs, no rub and no gallops GI normal to inspection, nondistended, normoactive bowel sounds, soft to palpation, non-tender and non-distended Extremity no clubbing, cyanosis or edema Skin no rashes or lesions noted General Skin Exam: no breakdown Neuro oriented x3, CN's II-XII intact bilaterally, no focal motor deficits and no sensory deficits noted Sensorium / Orientation: awake and alert Speech: speech normal Psych affect normal Assessment & Plan Assessment/Plan (1) Community acquired pneumonia: PLAN: Plan 1. Community-acquired pneumonia-most likely secondary to human metapneumovirus, I have decided to give the patient IV Lasix today as a single dose to see if this would improve her respiratory status, patient remains on IV corticosteroids and aerosol treatments at this time #2 essential hypertension-patient will remain on her present medications, they will be adjusted as needed #3 paroxysmal atrial fibrillation-patient is on amiodarone #4 hypoxia secondary to #1-pulse ox will be monitored #5 hyperlipidemia-patient is on Crestor Total clinical time spent by myself addressing the patient's medical issues, reviewing all of her data, and collaborating with patient's care team: 35 minutes Charges/Coding Visit Charges Inpatient E&M: 30578 Subs Hosp L2
[2023-10-01] MEDS: Glycerin/Hypromellose/PEG400 15 ml Bottle EACH EYE (15:03)
[2023-10-01] MEDS: dilTIAZem CD 240 MG Capsule PO (21:03)
[2023-10-01] MEDS: LORazepam 0.5 MG Tablet PO (23:34)
[2023-10-02] VITALS (9 sets, daily range): BP systolic 153–189; BP diastolic 62–69; PULSE 60–69; RESP 14–18; TEMP 36.6–36.9; O2SAT 87–96
[2023-10-02] MEDS: Ipratropium/Albuterol Sulfate 3 ML AMPUL.NEB INHALATION ×4 (03:35→15:11)
[2023-10-02] MEDS: 0.9% Saline Lock 10 ML Syringe IV ×3 (06:18→14:14)
[2023-10-02] MEDS: Amiodarone 200 MG Tablet PO (07:58)
[2023-10-02] MEDS: Paroxetine 20 MG Tablet PO (07:58)
[2023-10-02] MEDS: Aspirin E.C. 81 MG Tablet PO (07:58)
[2023-10-02] MEDS: Losartan Potassium 100 MG Tablet PO (07:58)
[2023-10-02] MEDS: Enoxaparin 40 MG/0.4 ML Syringe SC (07:59)
[2023-10-02] MEDS: BENZOCAINE/MENTHOL 1 LOZENGE MUCOUS MEM ×2 (08:02→16:18)
[2023-10-02] MEDS: guaiFENesin Dm 10 ML UDC PO ×2 (08:02→16:18)
[2023-10-02] MEDS: Acetaminophen 325 MG Tablet 650 MG PO (08:02)
--- NOTE | 2023-10-02 09:13 | DCINST_ITS ---
Discharge Instructions Diet Discharge Diet: Low fat / Low cholesterol Activity Discharge Activity: Return to Normal Activity Dressing / Incision Call your doctor if you observe: Fever of 101 or Higher, Shortness of breath, Dizziness, Fainting spells, Swelling in the ankles, Chest pain and Increased palpitations (irregular heartbeat) Follow Up Care Test Results: Test results from this visit will be discussed in further detail at your follow- up appointment, if applicable. Discharge Plan Admission Admit Date/Time: 09/27/23 23:33 Attending Provider: Jonny Vicente Primary Care Provider: Michael Puga Consulting Providers: Osvaldo Benavides; Ruben Dumont Discharge Orders/Prescriptions Prescriptions: New albuterol sulfate [ProAir HFA] 90 mcg/actuation HFA aerosol inhaler 2 puff inhalation Q6H PRN (Reason: shortness of breath or wheezing) Qty: 6.7 0RF prednisone 10 mg tablet 10 mg PO DAILY Qty: 32 0RF Rx Instructions: Take 4 tablets daily for 3 days then 3 tablets daily for 3 days then 2 tablets daily for 3 days then 1 tablet daily for 3 days then half tablet daily for 4 days Continued aspirin [Adult Low Dose Aspirin] 81 mg tablet,delayed release (DR/EC) 81 mg PO QDAY Qty: 90 3RF rosuvastatin 10 mg tablet 10 mg PO DAILY coenzyme Q10 [Co Q-10] 100 mg capsule 100 mg PO DAILY sucralfate 100 mg/mL suspension 10 ml PO TID PRN (Reason: digestion) Patient Comments: TAKE 10 ML BY MOUTH 4 TIMES DAILY hydrochlorothiazide 25 mg tablet 12.5 mg PO BID cholecalciferol (vitamin D3) 50 mcg (2,000 unit) capsule 50 mcg PO DAILY paroxetine HCl 20 mg tablet 20 mg PO DAILY lorazepam 0.5 MG tablet 0.5 mg PO BID PRN PRN (Reason: Anxiety) cyclosporine [Restasis] 0.05 % dropperette 1 drp EACH EYE Q12H amiodarone 200 mg tablet 200 mg PO DAILY Qty: 90 3RF diltiazem HCl 240 mg capsule,extended release 24hr 240 mg PO QHS Qty: 90 3RF losartan 100 mg tablet 100 mg PO DAILY Qty: 90 3RF Referrals / Follow Up: Michael Puga DO [Primary Care Provider] - Within 1 Week Disposition Disposition (needs filled in before D/C Order can be placed): Home, Self Care
--- NOTE | 2023-10-02 09:21 | DS.PCM_ITS ---
Providers Date of Admission: 09/27/23 Primary Care Physician: Dr. Michael Puga, DO Reason For Visit: COMMUNITY-ACQUIRED PNEMONIA Diagnosis Discharge Diagnosis (1) Community acquired pneumonia: Status: Acute Code(s): J18.9 - Pneumonia, unspecified organism Medications at Discharge Home Medications lorazepam 0.5 mg tablet 0.5 mg PO BID PRN PRN Anxiety 05/13/16 aspirin 81 mg tablet,delayed release (Adult Low Dose Aspirin) 81 mg PO QDAY #90 tabs 12/27/18 coenzyme Q10 100 mg capsule (Co Q-10) 100 mg PO DAILY 01/23/20 rosuvastatin 10 mg tablet 10 mg PO DAILY 01/23/20 cholecalciferol (vitamin D3) 50 mcg (2,000 unit) capsule 50 mcg PO DAILY 06/02/21 hydrochlorothiazide 25 mg tablet 12.5 mg PO BID 11/25/21 sucralfate 100 mg/mL oral suspension 10 ml PO TID PRN digestion 11/25/21 paroxetine HCl 20 mg tablet 20 mg PO DAILY 12/03/22 amiodarone 200 mg tablet 200 mg PO DAILY #90 tabs 02/11/23 diltiazem HCl 240 mg capsule,extended release 24 hr 240 mg PO QHS #90 caps 04/08/23 losartan 100 mg tablet 100 mg PO DAILY #90 tabs 08/10/23 cyclosporine 0.05 % eye drops in a dropperette (Restasis) 1 drp EACH EYE Q12H 09/27/23 albuterol sulfate 90 mcg/actuation aerosol inhaler (ProAir HFA) 2 puff inhalation Q6H PRN shortness of breath or wheezing #6.7 grams 10/02/23 prednisone 10 mg tablet 10 mg PO DAILY #32 tabs 10/02/23 Hospital Course Operations None Procedures None Summary of Care Provided Minutes Spent on Discharge: 36 Hospital Course: Per HPI: MICHAEL MEIER, is a 83 F who presents to the emergency room with chief complaint of shortness of breath. Patient has had a febrile illness beginning last Wednesday for which she sought care at urgent care and was placed on antibiotic but she does not know which. Over the last 24 hours she has progressively become more short of breath and was 86% on room air upon arrival to the hospital. She required oxygen therapy to maintain her saturation greater than 90%. Chest x-ray reveals a right lower lobe pneumonia. She has had fevers reportedly 103 degrees for which she was given aspirin by EMS. She is feeling more comfortable here in the emergency room after receiving oxygen therapy. She will be admitted to general medical floor for treatment of community-acquired pneumonia. She does have BiPAP therapy at home and she will be allowed to use her home machine if necessary. Hospital Course: 1. Viral pneumonia secondary to human metapneumovirus?83-year-old female presented to the hospital with increased oxygen requirements and shortness of breath. She had been placed on an antibiotic for 7 days prior to admission which did not seem to help. Sputum culture here in the hospital was negative for any bacterial organism however she did test positive for human metapneumovirus. She has improved with Lasix as well as steroids and she had an ambulatory pulse ox today on the day of discharge that demonstrated a 4 L requirement with ambulation and 2 L at rest. She does wear 2 L at night at baseline. She is active in the community so we will need to portable oxygen as well on discharge. I discussed with her the plan for discharge today she expressed understanding the risk benefits of going home and would like to go home today. On the day of discharge I did give her another dose of IV Lasix as she says that that helped yesterday. And I recommend she follow-up with her PCP next week for follow-up labs to monitor her renal function. Will also plan for slow steroid taper and albuterol inhaler on discharge. 2. Essential hypertension, paroxysmal A-fib, hyperlipidemia, GERD, anxiety, depression are all chronic medical conditions which complicate her care. Her home medications were continued where appropriate Physical Exam Narrative General: Alert, Oriented x3, Cooperative, No apparent distress HEENT: Atraumatic, PERRLA, EOMI, Normocephalic Oral: Moist Mucosa Neck: Supple, No JVD Lungs: Diminished, Normal air movement, No rhonchi, mild wheeze, mild basilar rales Cardiovascular: Regular rate, Regular Rhythm, Normal S1, Normal S2, No murmurs Abdomen: Soft, Non Tender, Non-Distended, No Hepato-splenomegaly Extremities: No edema, Capillary Refill Less than 3 Seconds Skin: No rashes, No breakdown Musculoskeletal: No Tenderness to Palpation of Joints or Extremities Neurological: No focal neurological deficits, Motor Exam 5/5 strength throughout, Sensory exam intact to light touch and pain Psych/Mental Status: Normal Affect, Appropriate Weight / BMI Weight Weight: 228 lb 2.855 oz Body Mass Index (BMI) 38.0 ABG / Lab / Microbiology Data 09/29/23 06:30 09/29/23 06:30 Microbiology: Microbiology 09/28/23 13:55 Sputum, Expectorated/Coughed Gram Stain - Final 09/28/23 13:55 Sputum, Expectorated/Coughed Respiratory Culture - Final 09/28/23 14:00 Urine, Clean Catch Streptococcus pneumoniae Antigen (M - Final 09/28/23 14:00 Urine, Clean Catch Legionella Antigen - Final 09/28/23 10:12 Mucosa - Nose Respiratory Panel (PCR) - Final Human [place] D/C Instructions Discharge Diet: Low fat / Low cholesterol Call your doctor if you observe: Fever of 101 or Higher, Shortness of breath, Dizziness, Fainting spells, Swelling in the ankles, Chest pain and Increased palpitations (irregular heartbeat) Meaningful Use Info Meaningful Use Meaningful Use Diagnoses (Choose all that apply): None applicable Ischemic Stroke Statin Dosing Therapy Reference: STATIN DOSE THERAPY REFERENCE: * Patients > 75 years receive moderate or high dose statin therapy. * Patients 75 years or YOUNGER should receive HIGH intensity statin dose unless contraindicated. You will be required to document reason for non-treatment if statin daily dose does not meet guidelines. HIGH DOSE STATIN THERAPY DAILY Atorvastatin > than or = to 40 mg Rosuvastatin > than or = to 20 mg Amlodipine + Atorvastatin > than or = to 2.5/40 mg Ezetimibe + Simvastatin 10/80 mg Simvastatin 80mg Discharge Plan Admission Admit Date/Time: 09/27/23 23:33 Attending Provider: Jonny Vicente Primary Care Provider: Michael Puga Consulting Providers: Osvaldo Benavides; Ruben Dumont Instructions Additional Instructions / Restrictions: Follow-up with your PCP in 3 to 5 days to monitor your renal function given that you were given a couple doses of Lasix while here in the hospital as well as monitoring for improvement as viral bronchitis/pneumonia can turn into bacterial pneumonia as an outpatient. Discharge Orders/Prescriptions Prescriptions: New albuterol sulfate [ProAir HFA] 90 mcg/actuation HFA aerosol inhaler 2 puff inhalation Q6H PRN (Reason: shortness of breath or wheezing) Qty: 6.7 0RF prednisone 10 mg tablet 10 mg PO DAILY Qty: 32 0RF Rx Instructions: Take 4 tablets daily for 3 days then 3 tablets daily for 3 days then 2 tablets daily for 3 days then 1 tablet daily for 3 days then half tablet daily for 4 days Continued aspirin [Adult Low Dose Aspirin] 81 mg tablet,delayed release (DR/EC) 81 mg PO QDAY Qty: 90 3RF rosuvastatin 10 mg tablet 10 mg PO DAILY coenzyme Q10 [Co Q-10] 100 mg capsule 100 mg PO DAILY sucralfate 100 mg/mL suspension 10 ml PO TID PRN (Reason: digestion) Patient Comments: TAKE 10 ML BY MOUTH 4 TIMES DAILY hydrochlorothiazide 25 mg tablet 12.5 mg PO BID cholecalciferol (vitamin D3) 50 mcg (2,000 unit) capsule 50 mcg PO DAILY paroxetine HCl 20 mg tablet 20 mg PO DAILY lorazepam 0.5 MG tablet 0.5 mg PO BID PRN PRN (Reason: Anxiety) cyclosporine [Restasis] 0.05 % dropperette 1 drp EACH EYE Q12H amiodarone 200 mg tablet 200 mg PO DAILY Qty: 90 3RF diltiazem HCl 240 mg capsule,extended release 24hr 240 mg PO QHS Qty: 90 3RF losartan 100 mg tablet 100 mg PO DAILY Qty: 90 3RF Referrals / Follow Up: Michael Puga DO [Primary Care Provider] - Within 1 Week Disposition Disposition (needs filled in before D/C Order can be placed): Home, Self Care Charges/Coding Visit Charges Inpatient E&M: 51882 Disch Hosp >30min
[2023-10-02] MEDS: Furosemide 40 MG/4 ML Vial IV (09:34)
--- NOTE | 2023-10-02 09:52 | NURSING ---
[facility] notified of need for home oxygen delivery and script faxed.
[2023-10-02] MEDS: Albuterol 2.5 MG/3 ML VIAL.NEB. INHALATION (17:42)
== END 2023-10-02 17:52 | disposition home health service (06) | DRG 195 ==
LOC: ED 23:27 → PCU 23:41
PROVIDERS: Family Medicine; Admitting Provider Family Medicine; Emergency Provider Student in an Organized Health Care Education/Training Program; PCP Student in an Organized Health Care Education/Training Program; Visit Provider Family Medicine
DX: J12.3 Human metapneumovirus pneumonia (principal); E66.9 Obesity, unspecified; I48.0 Paroxysmal atrial fibrillation; I10 Essential (primary) hypertension; F32.A Depression, unspecified; E78.00 Pure hypercholesterolemia, unspecified; K21.9 Gastro-esophageal reflux disease without esophagitis; F41.9 Anxiety disorder, unspecified; R09.02 Hypoxemia; Z68.38 Body mass index [BMI] 38.0-38.9, adult; Z95.0 Presence of cardiac pacemaker; Z79.82 Long term (current) use of aspirin; Z79.899 Other long term (current) drug therapy; Z86.73 Personal history of transient ischemic attack (TIA), and cerebral infarction without residual deficits
CPT/HCPCS: 36415; 71045; 80048; 80053; 84484; 85025; 87070; 87205; 87449; 87633; 93005; 94640; 94668; 97161; 97166; 97530; 97535; 99284; A4216; J1940

== ENCOUNTER 2023-10-08 11:40 | Outpatient (RCR) | payer MEDICARE, OTHER, SELFPAY ==
[2023-10-08 12:34] LABS: ALB/GLOB Ratio 0.9 RATIO (0.9-2.4); AST(SGOT) 17 U/L (15-37); Alanine Aminotransfer ALT/SGPT 38 U/L (13-56); Albumin, Serum 3.1 g/dL (3.2-5.0); Alkaline Phosphatase 81 U/L (45-117); Anion Gap 9 (5-15); BUN 28 mg/dL (7-18); BUN/Creat Ratio 31.7 RATIO (10-20); Calcium,Total 8.8 mg/dL (8.5-10.1); Chloride 97 mmol/L (98-107); Creatinine, Serum 0.88 mg/dL (0.55-1.02); EST Glomerular Filtration Rate 65 mL/min (>60); Est Glom Filt Rate - Afr Amer 79 mL/min (>60); Globulin 3.6 g/dL (2.2-4.2); Glucose 172 mg/dL (74-106); Potassium 3.9 mmol/L (3.5-5.1); Protein, Total 6.7 g/dL (6.4-8.2); Sodium Level 133 mmol/L (136-145)
== END 2023-10-08 18:00 | disposition home or self-care (01) ==
LOC: HHLAB 11:40
PROVIDERS: PCP Student in an Organized Health Care Education/Training Program; Referring Provider Student in an Organized Health Care Education/Training Program; Visit Provider Student in an Organized Health Care Education/Training Program
DX: R19.7 Diarrhea, unspecified (principal)
CPT/HCPCS: 80053

== ENCOUNTER → 2024-01-25 | Outpatient (CLI) | payer MEDICARE, OTHER, SELFPAY ==
[2024-01-25 14:56] LABS: BNP,B-Type NATRIURETIC PEPTIDE 127.2 pg/mL (0-100)
[2024-01-25 15:00] LABS: Anion Gap 6 (5-15); BUN 15 mg/dL (7-18); BUN/Creat Ratio 27.3 RATIO (10-20); Calcium,Total 8.9 mg/dL (8.5-10.1); Chloride 105 mmol/L (98-107); Creatinine, Serum 0.55 mg/dL (0.55-1.02); EST Glomerular Filtration Rate 112 mL/min (>60); Est Glom Filt Rate - Afr Amer 136 mL/min (>60); Glucose 109 mg/dL (74-106); Potassium 3.2 mmol/L (3.5-5.1); Sodium Level 141 mmol/L (136-145)
== END | disposition home or self-care (01) ==
LOC: LAB 13:47
PROVIDERS: PCP Student in an Organized Health Care Education/Training Program; Referring Provider Physician Assistant Medical; Visit Provider Physician Assistant Medical
DX: R06.09 Other forms of dyspnea (principal); I48.0 Paroxysmal atrial fibrillation
CPT/HCPCS: 36415; 80048; 83880; 84443

== ENCOUNTER → 2024-02-02 | Outpatient (CLI) | payer MEDICARE, OTHER, SELFPAY ==
--- NOTE | 2024-02-02 12:45 | ECHOD_ITS ---
Reason For Study: Afib/Flutter Procedure This was a 2D Doppler, Color Flow transthoracic echocardiogram. Exam performed in department. Left Ventricle Normal LV size. Left ventricular systolic function is normal. The left ventricular ejection fraction is 60 %. Stage 2 diastolic dysfunction. No regional wall motion abnormalities noted. Right Ventricle Normal RV size. ICD or pacer leads identified within the right ventricle. Normal systolic function. Atria The left atrium is moderately enlarged. Normal right atrium. Mitral Valve Normal mitral valve. Moderate (2+) eccentric mitral valve insufficiency. Tricuspid Valve Normal tricuspid valve. Moderate (2+) tricuspid valve insufficiency. Pulmonary artery systolic pressure is 66 mmHg. Moderate pulmonary hypertension. Aortic Valve Trisinus/trileaflet aortic valve. Pulmonic Valve Normal pulmonic valve. Great Vessels Normal aortic root. The pulmonary artery is normal size. Normal inferior vena cava. Pericardium/Pleural No pericardial effusion. MMode/2D Measurements & Calculations LVIDd: 4.7 cm IVSd: 1.4 cm LAV(MOD-bp): 106.4 ml LVIDs: 3.2 cm LVPWd: 1.1 cm LAV(MOD-bp) Indexed: 50.2 ml/m2 RVDd: 4.4 cm FS: 32.7 % LAV(MOD-sp2): 92.8 ml LAV(MOD-sp4): 104.2 ml LA dimension(2D): 4.5 cm LA A4 area: 29.5 cm2 RA A4 area: 19.7 cm2 TAPSE: 2.5 cm Time Measurements MV dec time: 0.14 sec Doppler Measurements & Calculations MV E max michael: 87.8 cm/sec Lat Peak E' Michael: 11.8 cm/sec Med Peak E' Michael: 7.3 cm/sec MV A max michael: 35.0 cm/sec E/E' lat: 7.4 E/E' med: 12.0 MV E/A: 2.5 MV V2 max: 131.6 cm/sec MV P1/2t max michael: 133.7 cm/sec Ao V2 max: 130.1 cm/sec MV max P.9 mmHg MV P1/2t: 60.2 msec Ao max P.8 mmHg MV V2 mean: 47.2 cm/sec MV dec slope: 650.4 cm/sec2 Ao V2 mean: 90.2 cm/sec MV mean P.3 mmHg Ao mean P.7 mmHg MV V2 VTI: 31.0 cm MVA(P1/2t): 3.7 cm2 Ao V2 VTI: 31.9 cm AV (velocity ratio): 0.78 LV V1 max: 104.6 cm/sec MR max michael: 585.4 cm/sec PA V2 max: 98.1 cm/sec LV V1 max P.4 mmHg MR max P.1 mmHg PA max PG (full): 1.2 mmHg LV V1 mean P.4 mmHg MR mean michael: 459.8 cm/sec PA V2 mean: 69.9 cm/sec LV V1 mean: 70.9 cm/sec MR mean P.1 mmHg PA mean PG (full): 0.53 mmHg LV V1 VTI: 24.8 cm MR VTI: 202.2 cm PI dec slope: 375.6 cm/sec2 TR max michael: 396.0 cm/sec TR max P.7 mmHg ECHO/Echo Complete Interpretation Summary Normal LV size. Left ventricular systolic function is normal. The left ventricular ejection fraction is 60 %. The left atrium is moderately enlarged. Stage 2 diastolic dysfunction. Moderate pulmonary hypertension. Ordering Physician: Anabel Horne Referring Physician: Anabel Horne Performed By: Roby Rouse RCS
== END | disposition home or self-care (01) ==
LOC: CVS 12:45
PROVIDERS: PCP Student in an Organized Health Care Education/Training Program; Referring Provider Physician Assistant Medical; Visit Provider Physician Assistant Medical
DX: I48.0 Paroxysmal atrial fibrillation (principal); R06.09 Other forms of dyspnea
CPT/HCPCS: 93306

== ENCOUNTER 2024-04-30 06:13 | Inpatient (IN) | payer MEDICARE, OTHER, SELFPAY ==
[2024-04-30] VITALS (14 sets, daily range): BP systolic 127–200; BP diastolic 51–86; PULSE 60–66; RESP 12–30; TEMP 36.6–36.8; O2SAT 85–98; BMI 40.0; BMI 38.1
--- NOTE | 2024-04-30 07:00 | RAD_ITS ---
INDICATION: cough EXAMINATION/TECHNIQUE: X-RAY - XR Chest 2 Views COMPARISON: Prior study dated: 09/29/2023 FINDINGS: LINES/DEVICES: Pacemaker with leads unchanged position. LUNGS: No consolidation. Small bilateral pleural effusions seen on the lateral view only. No pneumothorax. MEDIASTINUM: Aorta is atherosclerotic and tortuous. CARDIAC SILHOUETTE: Not enlarged. BONES AND SOFT TISSUES: No acute abnormalities. Degenerative changes in the dorsal spine. RAD/Chest PA and Lateral IMPRESSION: Small bilateral pleural effusions or pleural thickening. No infiltrates. Electronically Signed: Starr Jackman MD at 8:12 EST ,
[2024-04-30 07:06] LABS: Mucous, Urine 0 SEEN /hpf (<or=2+)
[2024-04-30 07:10] LABS: Color, Urine Yellow (Yellow); Glucose, Dipstick Normal (Normal); Ketone-Dipstick Negative (Negative); Leukocyte Esterase-Dipstick 100 /ul (Negative); Nitrite-Dipstick Negative (Negative); Occult Blood-Urine Negative /ul (Negative); Protein-Dipstick 15 mg/dl (Negative); Urine Bilirubin Dipstick Negative (Negative); Urine Clarity Clear (Clear); Urine Urobilinogen 8 mg/dl (Normal)
[2024-04-30 07:19] LABS: Absolute Lymphocyte Count 1.24 X10^3/uL (0.83-4.51); Absolute Neutrophil Count 10.4 X10^3/uL (2.0-7.7); Basophil# 0.06 X10^3/uL; Basophil% 0.4 % (0-1); Eosinophil# 0.17 X10^3/uL; Eosinophils% 1.3 % (0-5); Hematocrit 36.9 % (37-47); Hemoglobin 11.9 g/dL (12.0-15.0); Lymphocyte # 1.24 X10^3/ul (0.83-4.51); Lymphocyte % 9.3 % (19-41); Mean Corp Hgb Conc 32.2 g/dL (32-36); Mean Corpuscular Hgb 27.7 pg (27.0-32.0); Mean Corpuscular Volume 85.8 fL (81-99); Mean Platelet Vol. 10.8 fl (6.2-12.0); Monocyte# 1.47 X10^3/uL; NRBC Flagged by Analyzer 0 % (0-5); Neutrophil # 10.35 X10^3/uL (2.7-7.7); Neutrophil % 77.6 % (47-70); Platelet Count 236 K/mm3 (150-450); RBC Distribution Width CV 16.7 % (11.6-14.6); RBC Distribution Width SD 52.8 fl (35.1-43.9); White Blood Count 13.4 K/mm3 (4.4-11.0)
[2024-04-30 07:22] LABS: Amorphous Sediment 1+; Bacteria 2+ /hpf (None Seen); Red Blood Cells-Urine 0-5 SEEN /hpf (0-5); Renal Epithelial Cells 0-5 SEEN /hpf (0-5); Squamous Epithelial Cells - UA 5-10 SEEN /hpf (5-10); Transitional Epithelial - Ur 0-5 SEEN /hpf (0-5); White Blood Cells 0-5 SEEN /hpf (0-5)
[2024-04-30 07:31] LABS: D-Dimer Quantitative (DVT/PE) 0.83 FEU/ug/m (0.27-0.49)
[2024-04-30 07:37] LABS: Anion Gap 7 (5-15); BUN 13 mg/dL (7-18); BUN/Creat Ratio 19.1 RATIO (10-20); Chloride 99 mmol/L (98-107); Creatinine, Serum 0.68 mg/dL (0.55-1.02); EST Glomerular Filtration Rate 88 mL/min (>60); Est Glom Filt Rate - Afr Amer 106 mL/min (>60); Estimated Creatinine Clearance 65.47 ml/min; Glucose 127 mg/dL (74-106); Potassium 2.8 mmol/L (3.5-5.1); Sodium Level 139 mmol/L (136-145)
[2024-04-30 07:42] LABS: BNP,B-Type NATRIURETIC PEPTIDE 266.9 pg/mL (0-100)
[2024-04-30] MEDS: Potassium Chloride Oral Tablet 20 MEQ 40 MEQ PO (08:05)
--- NOTE | 2024-04-30 08:06 | CT_ITS ---
EXAM: CT ANGIOGRAPHY CHEST WITHOUT AND WITH INTRAVENOUS CONTRAST CLINICAL INDICATION: hypoxia TECHNIQUE: Helically acquired angiography images were obtained of the chest without and with intravenous contrast. This CT exam was performed using one or more of the following dose reduction techniques: automated exposure control, adjustment of the mA and/or kV according to patient size, and/or use of iterative reconstruction technique. MIP reconstructed images were created and reviewed. CONTRAST: IV 100mL [id number] COMPARISON: Chest radiograph on the same date. FINDINGS: PULMONARY ARTERIES: No significant abnormality. Normal in caliber. No evidence of pulmonary embolism. AORTA: Atherosclerosis of the aorta and its branch vessels. Normal in caliber. No evidence of dissection. GREAT VESSELS OF AORTIC ARCH: No significant abnormality. Normal in caliber. No evidence of dissection. LUNGS AND PLEURAL SPACES: Diffuse interstitial thickening and bilateral small right larger than left pleural effusions. No dense consolidative airspace disease. Left apical scarring. Right upper lobe granuloma. No mass. HEART: No significant abnormality. Heart size is normal. No pericardial effusion. No significant coronary artery calcifications. MEDIASTINUM: Mediastinal and right hilar granulomas. No mediastinal or hilar adenopathy. Esophagus is unremarkable. No hiatal hernia. THYROID: No significant abnormality. No thyroid lesions. BONES/JOINTS: Osseous degenerative changes. No suspicious lytic or blastic abnormality. TUBES, LINES AND DEVICES: Left-sided cardiac device. CT/CTA Chest W/WO Contrast IMPRESSION: 1. No evidence of pulmonary artery embolus. 2. Findings likely indicative of edema. No definite pneumonia. Pleural effusions. Electronically Signed: Wil Coker DO at 8:52 EST ,
--- NOTE | 2024-04-30 08:40 | EDS_ITS ---
HPI History of Present Illness Chief Complaint: General Illness Informant: patient and EMS Narrative Narrative: Patient is an 84-year-old female with past medical history of hypertension hyperlipidemia sick sinus syndrome status post pacemaker. She states that in August of this year she had to be admitted to the hospital for double pneumonia. She states that she required oxygen for 3 weeks while she was treated for that. However after that resolved she no longer required supplemental oxygen. She states for the past 4 days she has had generalized fatigue and has felt increasing shortness of breath. She states there is no associated chest pain diaphoresis nausea or vomiting. She reports that she has a pulse ox at home and she was checking her values this morning because of her worsening symptoms and states she had a reading down to 83%. With her worsening symptoms and now a low pulse ox value she activated her life alert and EMS brought her in for evaluation [facility] Medical History Obesity TIA (transient ischemic attack) (12/2018) GI bleed (2017) Essential (primary) hypertension Gastritis (09/07/18) Osteoarthritis Anxiety Daytime somnolence Dysmetabolic syndrome X Allergic rhinitis Malignant melanoma of skin of trunk, except scrotum Hyperlipidemia FH: sudden cardiac (SCD) Colitis Depression Paroxysmal atrial fibrillation Sick sinus syndrome Carotid artery disease Home Medications ?Medication ?Instructions ?Recorded ?Last Taken ?Type lorazepam 0.5 mg tablet 0.5 mg PO BID PRN PRN Anxiety 05/13/16 Unknown History aspirin 81 mg tablet,delayed 81 mg PO QDAY heart health #90 tabs 12/27/18 Unknown Rx release (Adult Low Dose Aspirin) coenzyme Q10 100 mg capsule (Co 100 mg PO DAILY supplement 01/23/20 Unknown History Q-10) rosuvastatin 10 mg tablet 10 mg PO DAILY cholesterol 01/23/20 Unknown History cholecalciferol (vitamin D3) 50 50 mcg PO DAILY vitamin 06/02/21 Unknown History mcg (2,000 unit) capsule sucralfate 100 mg/mL oral 10 ml PO TID PRN digestion 11/25/21 Unknown History suspension paroxetine HCl 20 mg tablet 20 mg PO QHS mental health 12/03/22 Unknown History diltiazem HCl 240 mg 240 mg PO QHS heart #90 caps 04/08/23 Unknown Rx capsule,extended release 24 hr losartan 100 mg tablet 100 mg PO DAILY blood pressure #90 08/10/23 Unknown Rx tabs cyclosporine 0.05 % eye drops in a 1 drp EACH EYE Q12H eye health 09/27/23 Unknown History dropperette (Restasis) albuterol sulfate 90 mcg/actuation 2 puff inhalation Q6H PRN 10/02/23 Unknown Rx aerosol inhaler (ProAir HFA) shortness of breath or wheezing #6.7 grams levothyroxine 50 mcg capsule 50 mcg PO QDAY 01/25/24 Unknown History spironolactone 25 mg tablet 25 mg PO DAILY #30 tabs 01/25/24 Unknown Rx amiodarone 200 mg tablet 200 mg PO DAILY heart #90 tabs 03/14/24 Unknown Rx azelastine 0.05 % eye drops 1 drp ophthalmic (eye) BID 04/30/24 Unknown History fluticasone propionate 110 1 inh inhalation Q12H 04/30/24 Unknown History mcg/actuation HFA aerosol inhaler guaifenesin 600 mg tablet, 600 mg PO BID PRN congestion 04/30/24 Unknown History extended release 12 hr (Mucus Relief ER) hydralazine 25 mg tablet 25 mg PO DAILY 04/30/24 Unknown History hydrochlorothiazide 12.5 mg capsule 12.5 mg PO DAILY 04/30/24 Unknown History meloxicam 15 mg tablet 15 mg PO DAILY 04/30/24 Unknown History vitamin B complex (Balanced B-50 1 tab PO DAILY 04/30/24 Unknown History tablet) Allergy/AdvReac Type Severity Reaction Status Date / Time ciprofloxacin (From Cipro) Allergy Rash Verified 04/30/24 06:15 Penicillins (PCN) Allergy Hives Verified 04/30/24 06:15 Sulfa (Sulfonamide Allergy Hives Verified 04/30/24 06:15 Antibiotics) Beta-Blockers AdvReac Other Verified 04/30/24 06:15 (Beta-Adrenergic Bloc hydrocodone (From Vicodin) AdvReac Other Verified 04/30/24 06:15 lisinopril AdvReac cough Verified 04/30/24 06:15 meperidine (From Demerol) AdvReac Vomiting Verified 04/30/24 06:15 morphine AdvReac Other Verified 04/30/24 06:20 pravastatin AdvReac Other Verified 04/30/24 06:15 Family History Grandfather Myocardial infarction Sudden cardiac Father Myocardial infarction CAD (coronary artery disease) CHF (congestive heart failure) Mother Myocardial infarction CAD (coronary artery disease) A-fib Brother A-fib CHF (congestive heart failure) Brother Cancer Son Diabetes Son Hypertension Surgical History History of permanent cardiac pacemaker placement (06/09/21) History of esophagogastroduodenoscopy (EGD) (09/07/18) History of left heart catheterization (LHC) (05/2011) 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) History of total right knee replacement (TKR) (~08/2011) History of right hip replacement (~2003) History of cholecystectomy History of total left knee replacement (TKR) Social History Smoking Status: Never smoker alcohol intake: never substance use type: does not use caffeine: Yes what type of physical activity do you participate in: none seatbelt use: always ROS ROS ED Constitutional Constitutional ED: Denies chills or fever(s) Eyes Eyes: Denies blurry vision or change in vision ENT ENT ED: Denies rhinorrhea or sore throat Cardiovascular Cardiovascular: Denies chest pain Respiratory/Chest Respiratory/Chest: Reports dyspnea; Denies cough Gastrointestinal Gastrointestinal: Reports abdominal pain; Denies diarrhea, nausea or vomiting Genitourinary Genitourinary ED: Denies dysuria Musculoskeletal Musculoskeletal: Reports back pain Integumentary Denies rash Neurologic Neurologic: Denies headache(s) Hematologic/Lymphatic Hematologic/Lymphatic: Denies easy bleeding or easy bruising EXAM Physical Exam Const Vital Signs: 04/30/24 06:14 04/30/24 06:14 04/30/24 07:00 Temperature 98 F Temperature Source Oral Pulse Rate 66 Respiratory Rate 20 H Respiratory Pattern Normal Blood Pressure 180/62 H Blood Pressure Mean 101 Pulse Ox 86 98 Oxygen Delivery Method Room Air Nasal Cannula Oxygen Flow Rate (L/min) 4 Positive well nourished, well developed and obese General Appearance ED: well developed; Negative for pallor Nutritional Appearance: obese HEENT Reports moist mucous membranes HEENT Narrative: No tongue or lip swelling no oral lesions no airway edema or compromise No secondary findings to suggest infection in the posterior Eyes PERRL and EOMs intact bilaterally General Eye ED: Negative for pale conjunctiva or scleral icterus Neck supple and no JVD Neck Narrative: No nuchal rigidity or meningeal signs Chest Wall palpation of chest normal Resp Resp Narrative: Patient is mildly tachypneic. No nasal flaring retractions or accessory muscle use or dyspnea with speech Breath sounds are diminished throughout with faint rhonchi noted in the bilateral bases. Cardio regular rate and regular rhythm GI non-distended and no masses GI Narrative: Abdomen is soft and nondistended with normal active bowel sounds. Patient has mild pain with palpation in the midepigastric region without voluntary guarding or rigidity. No pulsatile mass or fluid wave Auscultation: normoactive bowel sounds Palpation: soft Extremity Extremity Narrative: Trace pitting edema to the bilateral lower extremities that is equal and symmetric Negative Homans' sign bilaterally Neuro oriented x3, CN's II-XII intact bilaterally and no sensory deficits noted Sensorium / Orientation: alert Motor Exam: strength 5/5 throughout Psych mental status grossly normal Skin no rashes or lesions noted General Skin Exam: Negative for jaundice or pallor MDM MDM MDM Narrative Medical decision making narrative: Patient was hypoxic on room air at home 83% and improved with oxygen provided by EMS once this was removed upon her arrival to the ER she returned to hypoxia at a value of 86. As the hypoxia could be related to acute blood loss anemia acute kidney injury electrolyte abnormality congestive heart failure pneumonia pneumothorax or pulmonary embolus I did elect to perform basic laboratory studies. As she also reported fatigue there is concern this could be from a viral infection such as COVID influenza RSV or potential UTI. Viral swab was negative chest x-ray showed small pleural effusions but not obvious pneumonia or significant fluid buildup that should cause hypoxia. Urine sample revealed no obvious infection. The patient potassium is slightly low at 2.8 but this is not far off her baseline. H&H is stable going against acute blood loss anemia as a cause of her symptoms. Secondary to the persistent hypoxia without obvious cause I did elect to perform a CTA to check for potential PE or missed pneumonia. At this time the CTA result is still pending. However the patient is requiring supplemental oxygen at rest and this worsens with any type of minimal activity and as she does not have supplemental oxygen at home I do not feel she is safe to return there. As she does not have chest pain and she has a paced rhythm I have low concern that this is acute coronary syndrome do not feel the need for troponin or emergent cardiac consultation The patient will be signed out to the day physician Dr. Brush while awaiting the CTA results but plan will be for admission secondary to persistent hypoxia History & Record Review Discussion w/independent historian: EMS personnel and Patient Lab Data Attestation: I reviewed the patient's lab results. Labs: Laboratory Results - last 24 hr 04/30/24 06:57 WBC 13.4 H RBC 4.30 Hgb 11.9 L Hct 36.9 L MCV 85.8 MCH 27.7 MCHC 32.2 RDW Std Deviation 52.8 H RDW Coeff of Chandu 16.7 H Plt Count 236 MPV 10.8 Immature Gran % (Auto) 0.400 Neut % (Auto) 77.6 H Lymph % (Auto) 9.3 L [place] % (Auto) 11.0 H Eos % (Auto) 1.3 Baso % (Auto) 0.4 Absolute Neuts (auto) 10.4 H Absolute Lymphs (auto) 1.24 Nucleated RBC % 0 D-Dimer Quant (PE/DVT) 0.83 H* Sodium 139 Potassium 2.8 L Chloride 99 Carbon Dioxide 33.0 H Anion Gap 7 BUN 13 Creatinine 0.68 Estim Creat Clear Calc 65.47 Est GFR (MDRD) Af Amer 106 Est GFR (MDRD) Non-Af 88 BUN/Creatinine Ratio 19.1 Glucose 127 H Calcium 9.0 Magnesium 2.0 B-Natriuretic Peptide 266.9 H TSH 4.070 H Urine Color Yellow Urine Clarity Clear Urine pH 7.0 Ur Specific [place] 1.010 Urine Protein 15 H Urine Glucose (UA) Normal Urine Ketones Negative Urine Occult Blood Negative Urine Nitrite Negative Urine Bilirubin Negative Urine Urobilinogen 8 H Ur Leukocyte Esterase 100 H Urine RBC 0-5 SEEN Urine WBC 0-5 SEEN Ur Squamous Epith Cells 5-10 SEEN Ur Transition Epith Cell 0-5 SEEN Ur Renal Epithelial Cell 0-5 SEEN Amorphous Sediment 1+ Urine Bacteria 2+ Urine Mucus 0 SEEN Radiography Diagnostic Testing: Clinical Impression(s) from Imaging Studies Chest X-Ray 04/30/24 07:00 IMPRESSION: Small bilateral pleural effusions or pleural thickening. No infiltrates. Electronically Signed: Starr Jackman MD at 8:12 EST , Chest x-ray as interpreted by the emergency medicine physician reveals small bilateral pleural effusions without obvious infiltrate or pneumothorax Management Discussion w/another healthcare provider: Hospitalist Discharge Plan Triage Chief Complaint: General Illness ED Provider: Aravind Recio Dx/Rx/DC Orders Clinical Impression: Essential (primary) hypertension, Hyperlipidemia, History of permanent cardiac pacemaker placement, Hypoxia Prescriptions: No Action aspirin [Adult Low Dose Aspirin] 81 mg tablet,delayed release (DR/EC) 81 mg PO QDAY Qty: 90 3RF rosuvastatin 10 mg tablet 10 mg PO DAILY coenzyme Q10 [Co Q-10] 100 mg capsule 100 mg PO DAILY sucralfate 100 mg/mL suspension 10 ml PO TID PRN (Reason: digestion) Patient Comments: TAKE 10 ML BY MOUTH 4 TIMES DAILY cholecalciferol (vitamin D3) 50 mcg (2,000 unit) capsule 50 mcg PO DAILY paroxetine HCl 20 mg tablet 20 mg PO QHS levothyroxine 50 mcg capsule 50 mcg PO QDAY spironolactone 25 mg tablet 25 mg PO DAILY Qty: 30 11RF lorazepam 0.5 MG tablet 0.5 mg PO BID PRN PRN (Reason: Anxiety) cyclosporine [Restasis] 0.05 % dropperette 1 drp EACH EYE Q12H albuterol sulfate [ProAir HFA] 90 mcg/actuation HFA aerosol inhaler 2 puff inhalation Q6H PRN (Reason: shortness of breath or wheezing) Qty: 6.7 0RF azelastine 0.05 % drops 1 drp ophthalmic (eye) BID vitamin B complex [Balanced B-50] Tablet 1 tab PO DAILY fluticasone propionate 110 mcg/actuation HFA aerosol inhaler 1 inh inhalation Q12H guaifenesin [Mucus Relief ER] 600 mg tablet extended release 12hr 600 mg PO BID PRN (Reason: congestion) hydrochlorothiazide 12.5 mg capsule 12.5 mg PO DAILY meloxicam 15 mg tablet 15 mg PO DAILY hydralazine 25 mg tablet 25 mg PO DAILY diltiazem HCl 240 mg capsule,extended release 24hr 240 mg PO QHS Qty: 90 3RF losartan 100 mg tablet 100 mg PO DAILY Qty: 90 3RF amiodarone 200 mg tablet 200 mg PO DAILY Qty: 90 0RF Primary Care Provider: Michael Puga Referrals: Michael Puga DO [Primary Care Provider] - Print Language: Kosovan Disposition Disposition: Acute Care [facility]
[2024-04-30] MEDS: Potassium Chloride 10mEq/100mL 10 MEQ/100 ML IV.SOLN. 100 MEQ IV BOLUS (08:41)
[2024-04-30 08:45] LABS: AST(SGOT) 19 U/L (15-37); Alanine Aminotransfer ALT/SGPT 27 U/L (13-56); Albumin, Serum 3.2 g/dL (3.2-5.0); Alkaline Phosphatase 96 U/L (45-117); Bilirubin, Direct 0.52 mg/dL (0.00-0.30); Lipase 12 U/L (13-75); Protein, Total 7.2 g/dL (6.4-8.2)
[2024-04-30 09:06] LABS: International Normalized Ratio 1.2; Prothrombin Time (Protime)PT. 14.9 SECONDS (11.7-14.9)
[2024-04-30 09:07] LABS: Partial Thromboplast Time 32.3 Seconds (24.1-36.2)
--- NOTE | 2024-04-30 09:24 | HP.PCM.HOS_ITS ---
HPI - General General Date of Admission: 04/30/24 Date of Service: 04/30/24 Chief Complaint: Dyspnea, worsening, hypoxia. HPI Narrative The patient is an 84 y/o F w/ PMHx: Nonobstructive CAD, HTN, HLD, PAF, Hx sick sinus syndrome s/p pacemaker placement, Anxiety and Depression, GERD w/ Hx GI bleed, Morbid obesity, Chronic anemia, JOSE on BiPAP nightly, CKD stage II based on GFR trending who presents to the [facility] ED on 04/30/24 with history of increasing fatigue, malaise and dyspnea worse with exertion with no associated chest discomfort or marked cough or fever ongoing for at least 4 days however on day of presentation she checked her pulse ox at home because of worsening dyspnea noted that it was 83% prompting life alert and EMS transition to the ED for further evaluation. Workup in the ED included T98, heart rate 66, BP 180/62, respiratory 20, 86% on room air initially with improvement to 98% on 4 L nasal cannula, in the ED when patient was attempting to use the restroom she desaturated down to 85% on 2 L nasal cannula but improved again when she rested, CBC with WBC 13.4, hemoglobin 0.9, MCV 85.8, platelet 236 with left shift, D- dimer 0.83 which is normal for age adjustment, pending coags upon evaluation, CMP with potassium 2.8, carbon oxide 33, BUN/creatinine 13/0.68, GFR 88, glucose 127, magnesium 2.0, T. bili 2.20, D bili 0.52 otherwise hepatic profile not marked appearing, lipase 12, TSH 4.07, BNP 266.9, urinalysis with leukocyte esterase 100 however no marked urine WBCs or RBCs with 2+ bacteria, urine culture pending but low suspicion, rapid SARS COVID/influenza/RSV PCR negative, chest x-ray with small bilateral pleural effusions or pleural thickening with no infiltrates, follow-up CTA chest with no evidence of pulmonary embolus, findings indicative of edema with no evidence of any definitive pneumonia, pleural effusions bilaterally, prehospital EKG/telemetry without acute findings but admission EKG requested. In the ED patient ministered potassium chloride 40 mill equivalents as well as 20 mill equivalents IV in addition to Lasix 40 mg IV x 1. [facility] Medical History Obesity TIA (transient ischemic attack) (12/2018) GI bleed (2018) Essential (primary) hypertension Osteoarthritis Anxiety Daytime somnolence Dysmetabolic syndrome X Allergic rhinitis Malignant melanoma of skin of trunk, except scrotum Hyperlipidemia FH: sudden cardiac (SCD) Depression Paroxysmal atrial fibrillation Sick sinus syndrome Carotid artery disease Home Medications ?Medication ?Instructions ?Recorded ?Last Taken ?Type lorazepam 0.5 mg tablet 0.5 mg PO BID PRN PRN Anxiety 05/13/16 Unknown History aspirin 81 mg tablet,delayed 81 mg PO QDAY heart health #90 tabs 12/27/18 Unknown Rx release (Adult Low Dose Aspirin) coenzyme Q10 100 mg capsule (Co 100 mg PO DAILY supplement 01/23/20 Unknown History Q-10) rosuvastatin 10 mg tablet 10 mg PO DAILY cholesterol 01/23/20 Unknown History cholecalciferol (vitamin D3) 50 50 mcg PO DAILY vitamin 06/02/21 Unknown History mcg (2,000 unit) capsule sucralfate 100 mg/mL oral 10 ml PO TID PRN digestion 11/25/21 Unknown History suspension paroxetine HCl 20 mg tablet 20 mg PO QHS mental health 12/03/22 Unknown History diltiazem HCl 240 mg 240 mg PO QHS heart #90 caps 04/08/23 Unknown Rx capsule,extended release 24 hr losartan 100 mg tablet 100 mg PO DAILY blood pressure #90 08/10/23 Unknown Rx tabs cyclosporine 0.05 % eye drops in a 1 drp EACH EYE Q12H eye health 09/27/23 Unknown History dropperette (Restasis) albuterol sulfate 90 mcg/actuation 2 puff inhalation Q6H PRN 10/02/23 Unknown Rx aerosol inhaler (ProAir HFA) shortness of breath or wheezing #6.7 grams levothyroxine 50 mcg capsule 50 mcg PO QDAY 01/25/24 Unknown History spironolactone 25 mg tablet 25 mg PO DAILY #30 tabs 01/25/24 Unknown Rx amiodarone 200 mg tablet 200 mg PO DAILY heart #90 tabs 03/14/24 Unknown Rx azelastine 0.05 % eye drops 1 drp ophthalmic (eye) BID 04/30/24 Unknown History fluticasone propionate 110 1 inh inhalation Q12H 04/30/24 Unknown History mcg/actuation HFA aerosol inhaler guaifenesin 600 mg tablet, 600 mg PO BID PRN congestion 04/30/24 Unknown History extended release 12 hr (Mucus Relief ER) hydralazine 25 mg tablet 25 mg PO DAILY 04/30/24 Unknown History hydrochlorothiazide 12.5 mg capsule 12.5 mg PO DAILY 04/30/24 Unknown History meloxicam 15 mg tablet 15 mg PO DAILY 04/30/24 Unknown History vitamin B complex (Balanced B-50 1 tab PO DAILY 04/30/24 Unknown History tablet) Allergy/AdvReac Type Severity Reaction Status Date / Time ciprofloxacin (From Cipro) Allergy Rash Verified 04/30/24 06:15 Penicillins (PCN) Allergy Hives Verified 04/30/24 06:15 Sulfa (Sulfonamide Allergy Hives Verified 04/30/24 06:15 Antibiotics) Beta-Blockers AdvReac Other Verified 04/30/24 06:15 (Beta-Adrenergic Bloc hydrocodone (From Vicodin) AdvReac Other Verified 04/30/24 06:15 lisinopril AdvReac cough Verified 04/30/24 06:15 meperidine (From Demerol) AdvReac Vomiting Verified 04/30/24 06:15 morphine AdvReac Other Verified 04/30/24 06:20 pravastatin AdvReac Other Verified 04/30/24 06:15 Family History Grandfather Myocardial infarction Sudden cardiac Father Myocardial infarction CAD (coronary artery disease) CHF (congestive heart failure) Mother Myocardial infarction CAD (coronary artery disease) A-fib Brother A-fib CHF (congestive heart failure) Brother Cancer Son Diabetes Son Hypertension Surgical History History of permanent cardiac pacemaker placement (06/09/21) History of esophagogastroduodenoscopy (EGD) (09/07/18) History of left heart catheterization (LHC) (05/2011) 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) History of total right knee replacement (TKR) (~08/2011) History of right hip replacement (~2003) History of cholecystectomy History of total left knee replacement (TKR) Social History housing: house Smoking Status: Never smoker alcohol intake: never substance use type: does not use caffeine: Yes what type of physical activity do you participate in: none seatbelt use: always ROS ROS Narrative Admission Review of Systems: CONSTITUTIONAL: No weight loss, fever, chills, + weakness or fatigue. HEENT: Eyes: No visual loss, blurred vision, double vision or yellow sclerae. Ears, Nose, Throat: No hearing loss, sneezing, congestion, runny nose or sore throat. SKIN: No rash or itching, lesions, wounds. CARDIOVASCULAR: Mild orthopnea, edema, weight gain. No chest pain, chest pressure or chest discomfort, palpitations, syncopal events. RESPIRATORY: + Dyspnea, worse with exertion. No cough or sputum, wheezing, hemoptysis. GASTROINTESTINAL: No anorexia, nausea, vomiting or diarrhea, abdominal pain, melena, BRBPR. GENITOURINARY: No dysuria, frequency, urgency or retention. NEUROLOGICAL: No headache, dizziness, syncope, paralysis, ataxia, numbness or tingling in the extremities, focal weakness, change in bowel or bladder control, seizure. MUSCULOSKELETAL: + muscle, back pain, joint pain or stiffness. HEMATOLOGIC: + Chronic anemia, easy bleeding/bruising. LYMPHATICS: No enlarged nodes. No history of splenectomy. PSYCHIATRIC: + History of anxiety and depression. ENDOCRINOLOGIC: No reports of sweating, cold or heat intolerance. No polyuria or polydipsia. ALLERGIES: + History of hives. Vital Signs Vital Signs Vital Signs: 04/30/24 06:14 04/30/24 06:14 04/30/24 07:00 Temperature 98 F Temperature Source Oral Pulse Rate 66 Respiratory Rate 20 H Respiratory Pattern Normal Blood Pressure 180/62 H Blood Pressure Mean 101 Pulse Ox 86 98 Oxygen Delivery Method Room Air Nasal Cannula Oxygen Flow Rate (L/min) 4 04/30/24 08:46 Temperature Temperature Source Pulse Rate Respiratory Rate 30 H Respiratory Pattern Blood Pressure Blood Pressure Mean Pulse Ox 85 Oxygen Delivery Method Nasal Cannula Oxygen Flow Rate (L/min) 2 Weight Weight: 240 lb 8.389 oz Body Mass Index (BMI) 40.0 Physical Exam Narrative Physical Examination: General: Awake, alert, oriented x 3 and cooperative, laying in the ICU bed, no acute distress, notes improved breathing since initial ED arrival. Skin: Normal color, normal turgor, no icterus, no cyanosis. HEENT: AT/NC, EOMI, PERRLA, MMM, no carotid bruits or JVD noted. Lungs: Diminished, greater bases, moderate effort, mild rales at the bases, no distress, no rhonchi or wheezing. Heart: Regular rate and rhythm; no gallop, rub audible. Abdomen: Soft, obese, NTTP, ND, distant normal BS, no appreciated HSM. Extremities: No cyanosis, no clubbing, mild trace ankle edema. Neurological: Patient awake, alert, oriented as noted, cognitive function intact; pupils equally reactive to light and accommodation, cranial nerves grossly normal, moving all 4 extremities, no focal deficits, strength moderately to severely globally decreased. Psychiatric: Affect appears fatigued, no acute evidence of depressive or anxiety feelings. Results Lab / Micro Data 04/30/24 06:57 04/30/24 06:57 Labs: Laboratory Results - last 24 hr 04/30/24 06:57: WBC 13.4 H, RBC 4.30, Hgb 11.9 L, Hct 36.9 L, MCV 85.8, MCH 27.7, MCHC 32.2, RDW Std Deviation 52.8 H, RDW Coeff of Chandu 16.7 H, Plt Count 236, MPV 10.8, Immature Gran % (Auto) 0.400, Neut % (Auto) 77.6 H, Lymph % (Auto) 9.3 L, Grand % (Auto) 11.0 H, Eos % (Auto) 1.3, Baso % (Auto) 0.4, A bsolute Neuts (auto) 10.4 H, Absolute Lymphs (auto) 1.24, Nucleated RBC % 0, PT 14.9, INR 1.2, APTT 32.3, D-Dimer Quant (PE/DVT) 0.83 H*, Sodium 139, Potassium 2.8 L, Chloride 99, Carbon Dioxide 33.0 H, Anion Gap 7, BUN 13, Creatinine 0.68, Estim Creat Clear Calc 65.47, Est GFR (MDRD) Af Amer 106, Est GFR (MDRD) Non-Af 88, BUN/Creatinine Ratio 19.1, Glucose 127 H, Calcium 9.0, Magnesium 2.0, Total Bilirubin 2.20 H, Direct Bilirubin 0.52 H, AST 19, ALT 27, Alkaline Phosphatase 96, B-Natriuretic Peptide 266.9 H, Total Protein 7.2, Albumin 3.2, Globulin 4.0, Lipase 12 L, TSH 4.070 H, Urine Color Yellow, Urine Clarity Clear, Urine pH 7.0, Ur Specific [place] 1.010, Urine Protein 15 H, Urine Glucose (UA) Normal, Urine Ketones Negative, Urine Occult Blood Negative, Urine Nitrite Negative, Urine Bilirubin Negative, Urine Urobilinogen 8 H, Ur Leukocyte Esterase 100 H, Urine RBC 0-5 SEEN, Urine WBC 0-5 SEEN, Ur Squamous Epith Cells 5-10 SEEN, Ur Transition Epith Cell 0-5 SEEN, Ur Renal Epithelial Cell 0-5 SEEN, Amorphous Sediment 1+, Urine Bacteria 2+, Urine Mucus 0 SEEN Micro: Microbiology 04/30/24 06:57 Mucosa - Nasopharyngeal SARS-CoV-2, Influenza & RSV (PCR) - Final Imaging Radiology Impression Chest X-Ray 04/30/24 07:00 IMPRESSION: Small bilateral pleural effusions or pleural thickening. No infiltrates. Electronically Signed: Starr Jackman MD at 8:12 EST , Chest CTA 04/30/24 08:06 IMPRESSION: 1. No evidence of pulmonary artery embolus. 2. Findings likely indicative of edema. No definite pneumonia. Pleural effusions. Electronically Signed: Wil Coker DO at 8:52 EST , Assessment & Plan Assessment/Plan (1) Hypoxia: (2) CHF (congestive heart failure): PLAN: Plan The patient is an 84 y/o F w/ PMHx: Nonobstructive CAD, HTN, HLD, PAF, Hx sick sinus syndrome s/p pacemaker placement, Anxiety and Depression, GERD w/ Hx GI bleed, Morbid obesity, Chronic anemia, JOSE on BiPAP nightly, CKD stage II based on GFR trending who presents to the [facility] ED on 04/30/24 with history of increasing fatigue, malaise and dyspnea worse with exertion with no associated chest discomfort or marked cough or fever ongoing for at least 4 days however on day of presentation she checked her pulse ox at home because of worsening dyspnea noted that it was 83% prompting life alert and EMS transition to the ED for further evaluation. #1. Acute Hypoxia secondary to Suspected Acutely Decompensated HFpEF: Patient administered IV lasix in the ED, will admit to ICU as PCU status given bed availability, EKG requested, maintain on cardiac telemetry, obtain cardiac enzyme series, obtain serial EKGs, continue IV lasix diuresis, monitor I/Os, maintain on intake restriction, TSH mildly elevated thus will obtain FT4, magnesium level 2.0. Most recent 02/02/2024 echocardiogram with normal LV size, normal LV systolic function, LVEF 60%, moderately enlarged LA, stage II diastolic dysfunction, moderate pulmonary hypertension thus will not repeat. #2. Hypokalemia: Admission K+ 2.8, magnesium 2.0, supplementation given, repeat level in AM. #3. Hypothyroidism with abnormal TSH: Continue current levothyroxine regimen, admission TSH 4.070, mildly elevated, free T4 requested. #4. PAF: Status post pacemaker placement as noted, we will continue patient home diltiazem, amiodarone home regimen, per current list does not appear to be chronically anticoagulated, does have history of previous GI bleed likely etiology for not being on this regimen. #5. Hypertension: Continue home regimen including IV Lasix as noted above, continue additionally home diltiazem, hydralazine, losartan, spironolactone, temporally holding hydrochlorothiazide given IV diuresis, PRN hydralazine. #6. Hyperlipidemia: We will continue home statin therapy, FLP in AM. #7. History of TIA: Will continue aspirin, statin, hypertensive regimen with adjustments as noted, #8. Presumed nonobstructive CAD: No history of cardiac intervention as far as PCI per review of cardiology notes in chart history, will continue aspirin, statin, losartan, not on beta-tenzin but on diltiazem given underlying PAF is noted #9. Anxiety and depression: We will continue patient on paroxetine as well as low-dose judicious lorazepam regimen with hold for sedation if needed. #10. Hx Sick Sinus syndrome: Status post permanent pacemaker placement, given presentation to be cautious will interrogate. #11. Chronic normocytic anemia: Admission hemoglobin 11.9, MCV 85.8, previous to this primarily 12 range in 2023, will continue to trend. #12. Chronic Kidney Disease Stage II based on GFR trending: Admission BUN/Cr 13/0.68, GFR 88, baseline renal function 0.5-0.8, repeat BMP in AM. #13. Morbid Obesity: Weight loss and lifestyle changes encouraged, nutrition consulted. #14. GERD with history of GI bleed: Will maintain on PPI, continue sucralafate regimen per home list. #15. JOSE: Continue BiPAP nightly. #16. DVT prophylaxis: Lovenox. #17. CODE status: Patient CHRIS is her daughter and living will is currently in place. Discussed CODE status at length including difference between FULL code, DNR-CCA and DNR-CC status. Following discussions about the differences in these status, requested DNR-CCA, no intubation status. Advanced Care Planning Face to Face Time: 16 minutes. Charges/Coding Visit Charges Inpatient E&M: 49315 Init Hosp L3 Procedures Hospitalists Procedures: 62027 Advncd Care Plan 30 Min
[2024-04-30] MEDS: Furosemide 40 MG/4 ML Vial IV ×3 (09:25→17:55)
--- NOTE | 2024-04-30 10:36 | EKG12_ITS ---
Test Reason : CHF Blood Pressure : */* mmHG Vent. Rate : 61 BPM Atrial Rate : 61 BPM P-R Int : 168 ms QRS Dur : 100 ms QT Int : 528 ms P-R-T Axes : * 15 -13 degrees QTcB Int : 531 ms Atrial-paced rhythm T wave abnormality, consider anterior ischemia Abnormal ECG Confirmed by MALDONADO SZYMANSKI, SYDNI ([id number]), editor magazine KATIA MEDEIROS ([id number]) on 05/01/2024 11:10:29 AM Referred By: Confirmed By: SYDNI OKEEFE MD
[2024-04-30] MEDS: Potassium Chloride 10mEq/100mL 10 MEQ/100 ML IV.SOLN. 50 MEQ IV BOLUS (10:49)
[2024-04-30] MEDS: Pantoprazole Sodium 40 MG Tablet PO (12:16)
[2024-04-30] MEDS: Enoxaparin 40 MG/0.4 ML Syringe SC (12:16)
[2024-04-30] MEDS: Spironolactone 25 MG Tablet PO (12:16)
[2024-04-30] MEDS: hydrALAZINE 25 MG Tablet PO (12:17)
[2024-04-30] MEDS: Losartan Potassium 100 MG Tablet PO (12:18)
[2024-04-30] MEDS: Amiodarone 200 MG Tablet PO (12:24)
[2024-04-30 12:59] LABS: Troponin-I HS 65 pg/mL (3.0-54.0)
[2024-04-30 14:20] LABS: Troponin-I HS 56 pg/mL (3.0-54.0)
[2024-04-30] MEDS: 0.9% Saline Lock 10 ML Syringe IV (17:55)
[2024-04-30 18:44] LABS: Troponin-I HS 43 pg/mL (3.0-54.0)
[2024-04-30] MEDS: Paroxetine 20 MG Tablet PO (21:19)
[2024-04-30] MEDS: dilTIAZem CD 240 MG Capsule PO (21:19)
[2024-04-30] MEDS: Budesonide Respules 0.5 MG/2 ML AMPUL.NEB. INHALATION (21:20)
[2024-04-30] MEDS: LORazepam 0.5 MG Tablet PO (21:31)
[2024-04-30] MEDS: Acetaminophen 325 MG Tablet 650 MG PO (21:31)
[2024-05-01] VITALS (10 sets, daily range): BP systolic 114–158; BP diastolic 49–106; PULSE 60–61; RESP 12–18; TEMP 36.5–36.6; O2SAT 92–99; BMI 37.4
--- NOTE | 2024-05-01 01:57 | CPS ---
Patient placed on bipap by RN, RT notified
[2024-05-01 04:33] LABS: Absolute Lymphocyte Count 1.39 X10^3/uL (0.83-4.51); Absolute Neutrophil Count 4.5 X10^3/uL (2.0-7.7); Basophil# 0.06 X10^3/uL; Basophil% 0.8 % (0-1); Eosinophil# 0.18 X10^3/uL; Eosinophils% 2.5 % (0-5); Lymphocyte # 1.39 X10^3/ul (0.83-4.51); Lymphocyte % 19.6 % (19-41); Mean Corp Hgb Conc 32.4 g/dL (32-36); Mean Corpuscular Hgb 27.5 pg (27.0-32.0); Mean Platelet Vol. 11.2 fl (6.2-12.0); Monocyte# 0.95 X10^3/uL; Monocyte% 13.4 % (0-10); NRBC Flagged by Analyzer 0 % (0-5); Neutrophil % 63.6 % (47-70); Platelet Count 193 K/mm3 (150-450); RBC Distribution Width CV 16.5 % (11.6-14.6); RBC Distribution Width SD 51.2 fl (35.1-43.9); White Blood Count 7.1 K/mm3 (4.4-11.0)
[2024-05-01 05:01] LABS: ALB/GLOB Ratio 0.8 RATIO (0.9-2.4); AST(SGOT) 18 U/L (15-37); Alanine Aminotransfer ALT/SGPT 24 U/L (13-56); Albumin, Serum 2.8 g/dL (3.2-5.0); Alkaline Phosphatase 80 U/L (45-117); Anion Gap 3 (5-15); BUN 17 mg/dL (7-18); Calcium,Total 8.8 mg/dL (8.5-10.1); Chloride 100 mmol/L (98-107); Cholesterol 140 mg/dL (200); Creatinine, Serum 0.85 mg/dL (0.55-1.02); EST Glomerular Filtration Rate 68 mL/min (>60); Est Glom Filt Rate - Afr Amer 82 mL/min (>60); Estimated Creatinine Clearance 59.98 ml/min; Globulin 3.5 g/dL (2.2-4.2); Glucose 117 mg/dL (74-106); High Density Lipoprotein 54 mg/dL; Protein, Total 6.3 g/dL (6.4-8.2); Sodium Level 138 mmol/L (136-145); Triglycerides 102 mg/dL; Very Low Density Lipoprotein 20 mg/dL (5-40)
[2024-05-01] MEDS: Levothyroxine 50 MCG Tablet PO (05:19)
[2024-05-01] MEDS: Budesonide Respules 0.5 MG/2 ML AMPUL.NEB. INHALATION ×2 (07:33→19:35)
[2024-05-01] MEDS: Meloxicam 15 MG Tablet PO (08:22)
[2024-05-01] MEDS: Aspirin E.C. 81 MG Tablet PO (08:22)
[2024-05-01] MEDS: Losartan Potassium 100 MG Tablet PO (08:23)
[2024-05-01] MEDS: hydrALAZINE 25 MG Tablet PO (08:24)
[2024-05-01] MEDS: Pantoprazole Sodium 40 MG Tablet PO (08:26)
[2024-05-01] MEDS: Spironolactone 25 MG Tablet PO (08:27)
[2024-05-01] MEDS: Amiodarone 200 MG Tablet PO (08:31)
--- NOTE | 2024-05-01 09:05 | PCM.PN.HOSP ---
Subjective Subjective Doing well, feels better, no issues overnight. Objective Data Objective Data Vital Signs: Vital Signs Temp Pulse Resp BP Pulse Ox O2 Del Method O2 Flow Rate 97.7 F L 60 17 158/57 H 97 Nasal Cannula 3 05/01/24 08:41 05/01/24 08:41 05/01/24 08:41 05/01/24 08:41 05/01/24 08:41 05/01/24 08:41 05/01/24 08:41 FiO2 30 04/30/24 23:30 Oxygen Flow Rate (L/min) 3 Oxygen Delivery Method Nasal Cannula Weight: 224 lb 13.944 oz Body Mass Index (BMI) 37.4 Intake & Output: Intake and Output for Last 24 Hours 04/30/24 05/01/24 05/02/24 03:59 03:59 03:59 Intake Total 840 / 840 Output Total 3750 / 3750 100 / 100 Balance -2910 / -2910 -100 / -100 Lab / Micro Data 05/01/24 04:00 05/01/24 04:00 Labs: Laboratory Results - last 24 hr 04/30/24 06:57: PT 14.9, INR 1.2, APTT 32.3, Free T4 1.90 H 04/30/24 12:27: Troponin I High Sens 65 H 04/30/24 13:40: Troponin I High Sens 56 H 04/30/24 18:12: Troponin I High Sens 43 05/01/24 04:00: WBC 7.1, RBC 4.00 L, Hgb 11.0 L, Hct 34.0 L, MCV 85.0, MCH 27.5, MCHC 32.4, RDW Std Deviation 51.2 H, RDW Coeff of Chandu 16.5 H, Plt Count 193, MPV 11.2, Immature Gran % (Auto) 0.100, Neut % (Auto) 63.6, Lymph % (Auto) 19.6, [place] % (Auto) 13.4 H, Eos % (Auto) 2.5, Baso % (Auto) 0.8, Absolute Neuts (auto) 4.5, Absolute Lymphs (auto) 1.39, Nucleated RBC % 0, Sodium 138, Potassium 3.0 L, Chloride 100, Carbon Dioxide 35.0 H, Anion Gap 3 L, BUN 17, Creatinine 0.85, Estim Creat Clear Calc 59.98, Est GFR (MDRD) Af Amer 82, Est GFR (MDRD) Non-Af 68, BUN/Creatinine Ratio 20.0, Glucose 117 H, Calcium 8.8, Total Bilirubin 1.60 H, AST 18, ALT 24, Alkaline Phosphatase 80, Total Protein 6.3 L, Albumin 2.8 L, Globulin 3.5, Albumin/Globulin Ratio 0.8 L, Triglycerides 102, Cholesterol 140, LDL Cholesterol 66, VLDL Cholesterol 20, HDL Cholesterol 54 Micro: Microbiology 04/30/24 11:37 Mucosa - Nasopharyngeal Respiratory Panel (PCR) - Final 04/30/24 06:57 Mucosa - Nasopharyngeal SARS-CoV-2, Influenza & RSV (PCR) - Final Physical Exam Narrative General: Alert, Oriented x3, Cooperative, No apparent distress HEENT: Atraumatic, PERRLA, EOMI, Normocephalic Oral: Moist Mucosa Neck: Supple, No JVD Lungs: Diminished, Normal air movement, No rhonchi, No wheeze, No rales Cardiovascular: Regular rate, Regular Rhythm, Normal S1, Normal S2, No murmurs Abdomen: Soft, Non Tender, Non-Distended, No Hepato-splenomegaly Extremities: Trace edema, Capillary Refill Less than 3 Seconds Skin: No rashes, No breakdown Musculoskeletal: No Tenderness to Palpation of Joints or Extremities Neurological: No focal neurological deficits, Motor Exam 5/5 strength throughout, Sensory exam intact to light touch and pain Psych/Mental Status: Normal Affect, Appropriate Assessment & Plan Assessment/Plan (1) Hypoxia: (2) CHF (congestive heart failure): PLAN: Plan #1. Acute Hypoxia secondary to Suspected Acutely Decompensated HFpEF: Patient administered IV lasix in the ED, will admit to ICU as PCU status given bed availability, EKG requested, maintain on cardiac telemetry, obtain cardiac enzyme series, obtain serial EKGs, continue IV lasix diuresis, monitor I/Os, maintain on intake restriction, TSH mildly elevated thus will obtain FT4, magnesium level 2.0. Most recent 02/02/2024 echocardiogram with normal LV size, normal LV systolic function, LVEF 60%, moderately enlarged LA, stage II diastolic dysfunction, moderate pulmonary hypertension thus will not repeat. 05/01/2024: Continue with diuresis #2. Hypokalemia: Admission K+ 2.8, magnesium 2.0, supplementation given, repeat level in AM. #3. Hypothyroidism with abnormal TSH: Continue current levothyroxine regimen, admission TSH 4.070, mildly elevated, free T4 requested. 05/01/2024: T4 is also elevated, continue with current thyroid and have her follow-up as an outpatient with her PCP #4. PAF: Status post pacemaker placement as noted, we will continue patient home diltiazem, amiodarone home regimen, per current list does not appear to be chronically anticoagulated, does have history of previous GI bleed likely etiology for not being on this regimen. #5. Hypertension: Continue home regimen including IV Lasix as noted above, continue additionally home diltiazem, hydralazine, losartan, spironolactone, temporally holding hydrochlorothiazide given IV diuresis, PRN hydralazine. #6. Hyperlipidemia: We will continue home statin therapy, FLP in AM. #7. History of TIA: Will continue aspirin, statin, hypertensive regimen with adjustments as noted, #8. Presumed nonobstructive CAD: No history of cardiac intervention as far as PCI per review of cardiology notes in chart history, will continue aspirin, statin, losartan, not on beta-tenzin but on diltiazem given underlying PAF is noted #9. Anxiety and depression: We will continue patient on paroxetine as well as low-dose judicious lorazepam regimen with hold for sedation if needed. #10. Hx Sick Sinus syndrome: Status post permanent pacemaker placement, given presentation to be cautious will interrogate. #11. Chronic normocytic anemia: Admission hemoglobin 11.9, MCV 85.8, previous to this primarily 12 range in 2023, will continue to trend. #12. Chronic Kidney Disease Stage II based on GFR trending: Admission BUN/Cr 13/0.68, GFR 88, baseline renal function 0.5-0.8, repeat BMP in AM. #13. Morbid Obesity: Weight loss and lifestyle changes encouraged, nutrition consulted. #14. GERD with history of GI bleed: Will maintain on PPI, continue sucralafate regimen per home list. #15. JOSE: Continue BiPAP nightly. DVT: Lovenox Charges/Coding Visit Charges Inpatient E&M: 71463 Subs Hosp L2
[2024-05-01] MEDS: Potassium Chloride Oral Tablet 20 MEQ 40 MEQ PO (10:05)
[2024-05-01] MEDS: Furosemide 40 MG/4 ML Vial IV ×2 (10:06→17:45)
[2024-05-01] MEDS: Enoxaparin 40 MG/0.4 ML Syringe SC (10:06)
[2024-05-01] MEDS: 0.9% Saline Lock 10 ML Syringe IV ×2 (10:06→17:45)
--- NOTE | 2024-05-01 11:50 | CASEMGMT ---
GLYNN STPEHENS Assessment: Face to Face with pt for initial transition planning/care coordination assessment. GLYNN STEPHENS introduced self and role at [facility], pt voices understanding and consents to assessment. Pt is A&O x4 and answers all questions appropriately at this time. Pt sitting up in bed in no distress. Care providers, pharmacy, and demographics verified/updated. Strata: 2 Admitting Dx: Hypoxia, HFPEF Exacerbation PCP: Edd Specialists: [place], Sterile Instrument Technician; Home, manager of internal; Dg, Html Web Developer Preferred Pharmacy: [facility]. Insurance: [facility] Prescription Benefit: yes LNOK: Daughter, Yumiko Living Arrangements: Pt lives alone in a mobile home with no steps to enter. ADLs: Pt reports I at baseline. 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 Transportation: Pt drives self and denies concerns with transportation. DME: Grab bars, shower bench, walker, cane, wheelchair. HHC/SNF: [facility]. [facility]. Pt states no concerns with going home at time of dc. Pt requested [facility]HC at time of DC, denied wanting list of HHC agencies. States used [facility] previously and would like to use again. Pt states no further concerns/needs. Discussed possibility of Pt going home with O2. GLYNN STEPHENS provided verbal list of DME providers, Pt chose [facility] as O2 provider of choice if needed at time of DC. CM to follow. Advised pt to ask CM if any further question/concerns/needs arise, voices understanding. Pt Goal: Home Plan: Home with HHC, follow for O2 needs. Matthew MAKI CM
--- NOTE | 2024-05-01 12:04 | CASEMGMT ---
Addendum entered by Milvia Walton 05/01/24 12:41: Larissa from [facility] called and willing to accept Pt. It Pt is DC in the next day or two SOC will be . Original Note: GLYNN STEPHENS called and left VM with [facility] to see if willing to accept Pt.
[2024-05-01] MEDS: Rosuvastatin Calcium 5 MG Tablet 10 MG PO (20:15)
[2024-05-01] MEDS: dilTIAZem CD 240 MG Capsule PO (20:16)
[2024-05-01] MEDS: Paroxetine 20 MG Tablet PO (20:16)
[2024-05-01] MEDS: LORazepam 0.5 MG Tablet PO (21:59)
[2024-05-01] MEDS: Acetaminophen 325 MG Tablet 650 MG PO (21:59)
[2024-05-02] VITALS (9 sets, daily range): BP systolic 139–160; BP diastolic 52–64; PULSE 56–62; RESP 12–16; TEMP 36.6; O2SAT 92–100; BMI 37.3
[2024-05-02] MEDS: Levothyroxine 50 MCG Tablet PO (05:31)
[2024-05-02] MEDS: Budesonide Respules 0.5 MG/2 ML AMPUL.NEB. INHALATION (07:25)
[2024-05-02 07:53] LABS: Absolute Lymphocyte Count 1.38 X10^3/uL (0.83-4.51); Absolute Neutrophil Count 4.4 X10^3/uL (2.0-7.7); Basophil# 0.05 X10^3/uL; Basophil% 0.7 % (0-1); Eosinophil# 0.25 X10^3/uL; Eosinophils% 3.6 % (0-5); Hematocrit 34.8 % (37-47); Hemoglobin 11.2 g/dL (12.0-15.0); Lymphocyte # 1.38 X10^3/ul (0.83-4.51); Lymphocyte % 19.8 % (19-41); Mean Corp Hgb Conc 32.2 g/dL (32-36); Mean Corpuscular Hgb 27.7 pg (27.0-32.0); Mean Corpuscular Volume 85.9 fL (81-99); Mean Platelet Vol. 10.8 fl (6.2-12.0); Monocyte# 0.83 X10^3/uL; Monocyte% 11.9 % (0-10); NRBC Flagged by Analyzer 0 % (0-5); Neutrophil # 4.44 X10^3/uL (2.7-7.7); Neutrophil % 63.7 % (47-70); Platelet Count 241 K/mm3 (150-450); RBC Distribution Width CV 16.2 % (11.6-14.6); RBC Distribution Width SD 51.3 fl (35.1-43.9); Red Blood Count 4.05 M/mm3 (4.2-5.4)
[2024-05-02] MEDS: 0.9% Saline Lock 10 ML Syringe IV (08:13)
[2024-05-02] MEDS: Furosemide 40 MG/4 ML Vial IV (08:13)
[2024-05-02 08:25] LABS: Anion Gap 7 (5-15); BUN 22 mg/dL (7-18); BUN/Creat Ratio 29.7 RATIO (10-20); Calcium,Total 8.7 mg/dL (8.5-10.1); Chloride 100 mmol/L (98-107); Creatinine, Serum 0.74 mg/dL (0.55-1.02); EST Glomerular Filtration Rate 80 mL/min (>60); Est Glom Filt Rate - Afr Amer 96 mL/min (>60); Estimated Creatinine Clearance 63.05 ml/min; Glucose 109 mg/dL (74-106); Potassium 3.3 mmol/L (3.5-5.1); Sodium Level 139 mmol/L (136-145)
[2024-05-02] MEDS: Amiodarone 200 MG Tablet PO (08:52)
[2024-05-02] MEDS: Meloxicam 15 MG Tablet PO (08:52)
[2024-05-02] MEDS: Aspirin E.C. 81 MG Tablet PO (08:52)
[2024-05-02] MEDS: hydrALAZINE 25 MG Tablet PO (08:53)
[2024-05-02] MEDS: Losartan Potassium 100 MG Tablet PO (08:53)
[2024-05-02] MEDS: Spironolactone 25 MG Tablet PO (08:53)
[2024-05-02] MEDS: Enoxaparin 40 MG/0.4 ML Syringe SC (08:54)
[2024-05-02] MEDS: Pantoprazole Sodium 40 MG Tablet PO (08:54)
[2024-05-02] MEDS: Glycerin/Hypromellose/PEG400 15 ml Bottle EACH EYE (08:55)
--- NOTE | 2024-05-02 11:02 | DCINST_ITS ---
Discharge Instructions Diet Discharge Diet: Low fat / Low cholesterol and 6 Cup Fluid Restriction DC O2, CPAP, BIPAP needs RN Home O2 Qualification: Home O2 Qualification: Is the patient on home oxygen No 05/02/24 09:28 Home O2 Qualification: AT REST 1- Pulse Ox at rest 97 05/02/24 09:28 Home O2 Qualification: WITH AMBULATION 1- Pulse Ox with ambulation 92 05/02/24 09:28 1- Oxygen Flow Rate with 0 05/02/24 09:28 ambulation PSN CPAP & BiPAP: BiPAP & CPAP Settings per PSN Mode BiPAP 05/02/24 01:40 Bipap Delivery Device Face Mask 05/02/24 01:40 BiPAP Inspiratory Pressure 10 05/02/24 01:40 BiPAP Expiratory Pressure 5 05/02/24 01:40 BiPAP Rate 12 05/02/24 01:40 Fraction of Inspired Oxygen ( 30 05/02/24 01:40 FIO2) Home O2 Discharge instructions: No Dressing / Incision Discharge Activity: Return to Normal Activity Dressing / Incision Call your doctor if you observe: Fever of 101 or Higher, Shortness of breath, Dizziness, Fainting spells, Swelling in the ankles, Chest pain and Increased palpitations (irregular heartbeat) Follow Up Care Test Results: Test results from this visit will be discussed in further detail at your follow- up appointment, if applicable. Discharge Plan Admission Admit Date/Time: 04/30/24 09:27 Attending Provider: Jonny Vicente Primary Care Provider: Michael Puga Consulting Providers: Susan Duran Instructions Additional Instructions / Restrictions: Follow-up with your PCP as an outpatient to monitor your renal function since you are being started on Lasix which is a diuretic. Discharge Orders/Prescriptions Prescriptions: New furosemide [Lasix] 40 mg tablet 40 mg PO DAILY Qty: 30 0RF Continued aspirin [Adult Low Dose Aspirin] 81 mg tablet,delayed release (DR/EC) 81 mg PO QDAY Qty: 90 3RF rosuvastatin 10 mg tablet 10 mg PO DAILY coenzyme Q10 [Co Q-10] 100 mg capsule 100 mg PO DAILY sucralfate 100 mg/mL suspension 10 ml PO TID PRN (Reason: digestion) Patient Comments: TAKE 10 ML BY MOUTH 4 TIMES DAILY cholecalciferol (vitamin D3) 50 mcg (2,000 unit) capsule 50 mcg PO DAILY paroxetine HCl 20 mg tablet 20 mg PO QHS levothyroxine 50 mcg capsule 50 mcg PO QDAY spironolactone 25 mg tablet 25 mg PO DAILY Qty: 30 11RF lorazepam 0.5 MG tablet 0.5 mg PO BID PRN PRN (Reason: Anxiety) cyclosporine [Restasis] 0.05 % dropperette 1 drp EACH EYE Q12H albuterol sulfate [ProAir HFA] 90 mcg/actuation HFA aerosol inhaler 2 puff inhalation Q6H PRN (Reason: shortness of breath or wheezing) Qty: 6.7 0RF azelastine 0.05 % drops 1 drp ophthalmic (eye) BID vitamin B complex [Balanced B-50] Tablet 1 tab PO DAILY fluticasone propionate 110 mcg/actuation HFA aerosol inhaler 1 inh inhalation Q12H guaifenesin [Mucus Relief ER] 600 mg tablet extended release 12hr 600 mg PO BID PRN (Reason: congestion) hydrochlorothiazide 12.5 mg capsule 12.5 mg PO DAILY meloxicam 15 mg tablet 15 mg PO DAILY hydralazine 25 mg tablet 25 mg PO DAILY diltiazem HCl 240 mg capsule,extended release 24hr 240 mg PO QHS Qty: 90 3RF losartan 100 mg tablet 100 mg PO DAILY Qty: 90 3RF amiodarone 200 mg tablet 200 mg PO DAILY Qty: 90 0RF Referrals / Follow Up: Michael Puga DO [Primary Care Provider] - Within 1 Week Disposition Disposition (needs filled in before D/C Order can be placed): Home, Self Care
--- NOTE | 2024-05-02 11:06 | PCM.DC.SUM ---
Providers Date of Admission: 04/30/24 Primary Care Physician: Dr. Michael Puga, DO Reason For Visit: HYPOXIA, HFPEF EXACERBATION Diagnosis Discharge Diagnosis (1) Hypoxia: Status: Acute Code(s): R09.02 - Hypoxemia (2) CHF (congestive heart failure): Status: Acute Code(s): I50.9 - Heart failure, unspecified Medications at Discharge Home Medications lorazepam 0.5 mg tablet 0.5 mg PO BID PRN PRN Anxiety 05/13/16 aspirin 81 mg tablet,delayed release (Adult Low Dose Aspirin) 81 mg PO QDAY heart health #90 tabs 12/27/18 coenzyme Q10 100 mg capsule (Co Q-10) 100 mg PO DAILY supplement 01/23/20 rosuvastatin 10 mg tablet 10 mg PO DAILY cholesterol 01/23/20 cholecalciferol (vitamin D3) 50 mcg (2,000 unit) capsule 50 mcg PO DAILY vitamin 06/02/21 sucralfate 100 mg/mL oral suspension 10 ml PO TID PRN digestion 11/25/21 paroxetine HCl 20 mg tablet 20 mg PO QHS mental health 12/03/22 diltiazem HCl 240 mg capsule,extended release 24 hr 240 mg PO QHS heart #90 caps 04/08/23 losartan 100 mg tablet 100 mg PO DAILY blood pressure #90 tabs 08/10/23 cyclosporine 0.05 % eye drops in a dropperette (Restasis) 1 drp EACH EYE Q12H eye health 09/27/23 albuterol sulfate 90 mcg/actuation aerosol inhaler (ProAir HFA) 2 puff inhalation Q6H PRN shortness of breath or wheezing #6.7 grams 10/02/23 levothyroxine 50 mcg capsule 50 mcg PO QDAY 01/25/24 spironolactone 25 mg tablet 25 mg PO DAILY #30 tabs 01/25/24 amiodarone 200 mg tablet 200 mg PO DAILY heart #90 tabs 03/14/24 azelastine 0.05 % eye drops 1 drp ophthalmic (eye) BID 04/30/24 fluticasone propionate 110 mcg/actuation HFA aerosol inhaler 1 inh inhalation Q12H 04/30/24 guaifenesin 600 mg tablet, extended release 12 hr (Mucus Relief ER) 600 mg PO BID PRN congestion 04/30/24 hydralazine 25 mg tablet 25 mg PO DAILY 04/30/24 hydrochlorothiazide 12.5 mg capsule 12.5 mg PO DAILY 04/30/24 meloxicam 15 mg tablet 15 mg PO DAILY 04/30/24 vitamin B complex (Balanced B-50 tablet) 1 tab PO DAILY 04/30/24 furosemide 40 mg tablet (Lasix) 40 mg PO DAILY #30 tabs 05/02/24 Hospital Course Operations None Procedures 2-D Echocardiogram Summary of Care Provided Minutes Spent on Discharge: 37 Hospital Course: Per HPI: The patient is an 84 y/o F w/ PMHx: Nonobstructive CAD, HTN, HLD, PAF, Hx sick sinus syndrome s/p pacemaker placement, Anxiety and Depression, GERD w/ Hx GI bleed, Morbid obesity, Chronic anemia, JOSE on BiPAP nightly, CKD stage II based on GFR trending who presents to the [facility] ED on 04/30/24 with history of increasing fatigue, malaise and dyspnea worse with exertion with no associated chest discomfort or marked cough or fever ongoing for at least 4 days however on day of presentation she checked her pulse ox at home because of worsening dyspnea noted that it was 83% prompting life alert and EMS transition to the ED for further evaluation. Workup in the ED included T98, heart rate 66, BP 180/62, respiratory 20, 86% on room air initially with improvement to 98% on 4 L nasal cannula, in the ED when patient was attempting to use the restroom she desaturated down to 85% on 2 L nasal cannula but improved again when she rested, CBC with WBC 13.4, hemoglobin 0.9, MCV 85.8, platelet 236 with left shift, D-dimer 0.83 which is normal for age adjustment, pending coags upon evaluation, CMP with potassium 2.8, carbon oxide 33, BUN/creatinine 13/0.68, GFR 88, glucose 127, magnesium 2.0, T. bili 2.20, D bili 0.52 otherwise hepatic profile not marked appearing, lipase 12, TSH 4.07, BNP 266.9, urinalysis with leukocyte esterase 100 however no marked urine WBCs or RBCs with 2+ bacteria, urine culture pending but low suspicion, rapid SARS COVID/influenza/RSV PCR negative, chest x-ray with small bilateral pleural effusions or pleural thickening with no infiltrates, follow-up CTA chest with no evidence of pulmonary embolus, findings indicative of edema with no evidence of any definitive pneumonia, pleural effusions bilaterally, prehospital EKG/telemetry without acute findings but admission EKG requested. In the ED patient ministered potassium chloride 40 mill equivalents as well as 20 mill equivalents IV in addition to Lasix 40 mg IV x 1. Hospital Course: #1. Acute Hypoxia secondary to Suspected Acutely Decompensated HFpEF: Patient administered IV lasix in the ED, will admit to ICU as PCU status given bed availability, EKG requested, maintain on cardiac telemetry, obtain cardiac enzyme series, obtain serial EKGs, continue IV lasix diuresis, monitor I/Os, maintain on intake restriction, TSH mildly elevated thus will obtain FT4, magnesium level 2.0. Most recent 02/02/2024 echocardiogram with normal LV size, normal LV systolic function, LVEF 60%, moderately enlarged LA, stage II diastolic dysfunction, moderate pulmonary hypertension thus will not repeat. 05/01/2024: Continue with diuresis 05/02/2024: I discussed with her the plan for discharge today and she expressed understanding of the risks and benefits of going home and would like to go home today. She has diuresed about 4 L of fluid and is down 5 pounds since admission. She had an ambulatory pulse ox today which did not demonstrate a need for oxygen on discharge. She will go home with a new prescription for Lasix 40 mg p.o. daily as well as a fluid restriction to 1500 cc as she does have stage II diastolic dysfunction based on an echo obtained during this admission. I do recommend she follow-up with her PCP as an outpatient to monitor her renal function as she is also on hydrochlorothiazide and Aldactone, because of the Aldactone I will not place her on a potassium supplement on discharge. #2. Hypokalemia: Admission K+ 2.8, magnesium 2.0, supplementation given, repeat level in AM. #3. Hypothyroidism with abnormal TSH: Continue current levothyroxine regimen, admission TSH 4.070, mildly elevated, free T4 requested. 05/01/2024: T4 is also elevated, continue with current thyroid and have her follow-up as an outpatient with her PCP #4. PAF: Status post pacemaker placement as noted, we will continue patient home diltiazem, amiodarone home regimen, per current list does not appear to be chronically anticoagulated, does have history of previous GI bleed likely etiology for not being on this regimen. #5. Hypertension: Continue home regimen including IV Lasix as noted above, continue additionally home diltiazem, hydralazine, losartan, spironolactone, temporally holding hydrochlorothiazide given IV diuresis, PRN hydralazine. #6. Hyperlipidemia: We will continue home statin therapy, FLP in AM. #7. History of TIA: Will continue aspirin, statin, hypertensive regimen with adjustments as noted, #8. Presumed nonobstructive CAD: No history of cardiac intervention as far as PCI per review of cardiology notes in chart history, will continue aspirin, statin, losartan, not on beta-tenzin but on diltiazem given underlying PAF is noted #9. Anxiety and depression: We will continue patient on paroxetine as well as low-dose judicious lorazepam regimen with hold for sedation if needed. #10. Hx Sick Sinus syndrome: Status post permanent pacemaker placement, given presentation to be cautious will interrogate. #11. Chronic normocytic anemia: Admission hemoglobin 11.9, MCV 85.8, previous to this primarily 12 range in 2023, will continue to trend. #12. Chronic Kidney Disease Stage II based on GFR trending: Admission BUN/Cr 13/0.68, GFR 88, baseline renal function 0.5-0.8, repeat BMP in AM. #13. Morbid Obesity: Weight loss and lifestyle changes encouraged, nutrition consulted. #14. GERD with history of GI bleed: Will maintain on PPI, continue sucralafate regimen per home list. #15. JOSE: Continue BiPAP nightly. Physical Exam Narrative General: Alert, Oriented x3, Cooperative, No apparent distress HEENT: Atraumatic, PERRLA, EOMI, Normocephalic Oral: Moist Mucosa Neck: Supple, No JVD Lungs: Diminished, Normal air movement, No rhonchi, No wheeze, No rales Cardiovascular: Regular rate, Regular Rhythm, Normal S1, Normal S2, No murmurs Abdomen: Soft, Non Tender, Non-Distended, No Hepato-splenomegaly Extremities: Trace edema, Capillary Refill Less than 3 Seconds Skin: No rashes, No breakdown Musculoskeletal: No Tenderness to Palpation of Joints or Extremities Neurological: No focal neurological deficits, Motor Exam 5/5 strength throughout, Sensory exam intact to light touch and pain Psych/Mental Status: Normal Affect, Appropriate Weight / BMI Weight Weight: 224 lb 10.417 oz Body Mass Index (BMI) 37.3 ABG / Lab / Microbiology Data 05/02/24 07:32 05/02/24 07:32 Laboratory: Laboratory Results - last 24 hr 05/02/24 07:32: WBC 7.0, RBC 4.05 L, Hgb 11.2 L, Hct 34.8 L, MCV 85.9, MCH 27.7, MCHC 32.2, RDW Std Deviation 51.3 H, RDW Coeff of Chandu 16.2 H, Plt Count 241, MPV 10.8, Immature Gran % (Auto) 0.300, Neut % (Auto) 63.7, Lymph % (Auto) 19.8, Marin % (Auto) 11.9 H, Eos % (Auto) 3.6, Baso % (Auto) 0.7, Absolute Neuts (auto) 4.4, Absolute Lymphs (auto) 1.38, Nucleated RBC % 0, Sodium 139, Potassium 3.3 L, Chloride 100, Carbon Dioxide 33.0 H, Anion Gap 7, BUN 22 H, Creatinine 0.74, Estim Creat Clear Calc 63.05, Est GFR (MDRD) Af Amer 96, Est GFR (MDRD) Non-Af 80, BUN/Creatinine Ratio 29.7 H, Glucose 109 H, Calcium 8.7 Microbiology: Microbiology 04/30/24 06:52 Urine, Clean Catch Urine Culture - Final Mixed Gram Positive Organisms 04/30/24 11:37 Mucosa - Nasopharyngeal Respiratory Panel (PCR) - Final 04/30/24 06:57 Mucosa - Nasopharyngeal SARS-CoV-2, Influenza & RSV (PCR) - Final D/C Instructions Discharge Diet: Low fat / Low cholesterol and 6 Cup Fluid Restriction Call your doctor if you observe: Fever of 101 or Higher, Shortness of breath, Dizziness, Fainting spells, Swelling in the ankles, Chest pain and Increased palpitations (irregular heartbeat) DC O2, CPAP, BIPAP Needs RN Home O2 Qualification: Home O2 Qualification: Is the patient on home oxygen No 05/02/24 09:28 Home O2 Qualification: AT REST 1- Pulse Ox at rest 97 05/02/24 09:28 Home O2 Qualification: WITH AMBULATION 1- Pulse Ox with ambulation 92 05/02/24 09:28 1- Oxygen Flow Rate with 0 05/02/24 09:28 ambulation PSN CPAP & BiPAP: BiPAP & CPAP Settings per PSN Mode BiPAP 05/02/24 01:40 Bipap Delivery Device Face Mask 05/02/24 01:40 BiPAP Inspiratory Pressure 10 05/02/24 01:40 BiPAP Expiratory Pressure 5 05/02/24 01:40 BiPAP Rate 12 05/02/24 01:40 Fraction of Inspired Oxygen ( 30 05/02/24 01:40 FIO2) Home O2 Discharge instructions: No Meaningful Use Info Meaningful Use Meaningful Use Diagnoses (Choose all that apply): None applicable Ischemic Stroke Statin Dosing Therapy Reference: STATIN DOSE THERAPY REFERENCE: * Patients > 75 years receive moderate or high dose statin therapy. * Patients 75 years or YOUNGER should receive HIGH intensity statin dose unless contraindicated. You will be required to document reason for non-treatment if statin daily dose does not meet guidelines. HIGH DOSE STATIN THERAPY DAILY Atorvastatin > than or = to 40 mg Rosuvastatin > than or = to 20 mg Amlodipine + Atorvastatin > than or = to 2.5/40 mg Ezetimibe + Simvastatin 10/80 mg Simvastatin 80mg Discharge Plan Admission Admit Date/Time: 04/30/24 09:27 Attending Provider: Jonny Vicente Primary Care Provider: Michael Puga Consulting Providers: Susan Duran Instructions Additional Instructions / Restrictions: Follow-up with your PCP as an outpatient to monitor your renal function since you are being started on Lasix which is a diuretic. Discharge Orders/Prescriptions Prescriptions: New furosemide [Lasix] 40 mg tablet 40 mg PO DAILY Qty: 30 0RF Continued aspirin [Adult Low Dose Aspirin] 81 mg tablet,delayed release (DR/EC) 81 mg PO QDAY Qty: 90 3RF rosuvastatin 10 mg tablet 10 mg PO DAILY coenzyme Q10 [Co Q-10] 100 mg capsule 100 mg PO DAILY sucralfate 100 mg/mL suspension 10 ml PO TID PRN (Reason: digestion) Patient Comments: TAKE 10 ML BY MOUTH 4 TIMES DAILY cholecalciferol (vitamin D3) 50 mcg (2,000 unit) capsule 50 mcg PO DAILY paroxetine HCl 20 mg tablet 20 mg PO QHS levothyroxine 50 mcg capsule 50 mcg PO QDAY spironolactone 25 mg tablet 25 mg PO DAILY Qty: 30 11RF lorazepam 0.5 MG tablet 0.5 mg PO BID PRN PRN (Reason: Anxiety) cyclosporine [Restasis] 0.05 % dropperette 1 drp EACH EYE Q12H albuterol sulfate [ProAir HFA] 90 mcg/actuation HFA aerosol inhaler 2 puff inhalation Q6H PRN (Reason: shortness of breath or wheezing) Qty: 6.7 0RF azelastine 0.05 % drops 1 drp ophthalmic (eye) BID vitamin B complex [Balanced B-50] Tablet 1 tab PO DAILY fluticasone propionate 110 mcg/actuation HFA aerosol inhaler 1 inh inhalation Q12H guaifenesin [Mucus Relief ER] 600 mg tablet extended release 12hr 600 mg PO BID PRN (Reason: congestion) hydrochlorothiazide 12.5 mg capsule 12.5 mg PO DAILY meloxicam 15 mg tablet 15 mg PO DAILY hydralazine 25 mg tablet 25 mg PO DAILY diltiazem HCl 240 mg capsule,extended release 24hr 240 mg PO QHS Qty: 90 3RF losartan 100 mg tablet 100 mg PO DAILY Qty: 90 3RF amiodarone 200 mg tablet 200 mg PO DAILY Qty: 90 0RF Referrals / Follow Up: Michael Puga DO [Primary Care Provider] - Within 1 Week Disposition Disposition (needs filled in before D/C Order can be placed): Home, Self Care Charges/Coding Visit Charges Inpatient E&M: 62206 Disch Hosp >30min
--- NOTE | 2024-05-02 12:06 | CASEMGMT ---
GLYNN STEPHENS noted DC order in. Called [facility] to notify of DC. SOC will be 05/05/24, GLYNN STEPHENS into pt room. Notified Pt of of SOC, states she has a friend staying with her for a couple of days. Pt did not qualify for home O2. Denies questions or concerns at this time.
== END 2024-05-02 13:58 | disposition home health service (06) | DRG 291 ==
LOC: ED 09:19 → ICU 09:51
PROVIDERS: Admitting Provider Family Medicine; Emergency Provider Emergency Medicine; PCP Student in an Organized Health Care Education/Training Program; Visit Provider Family Medicine
DX: I13.0 Hypertensive heart and chronic kidney disease with heart failure and stage 1 through stage 4 chronic kidney disease, or unspecified chronic kidney disease (principal); I50.33 Acute on chronic diastolic (congestive) heart failure; I27.20 Pulmonary hypertension, unspecified; Z66 Do not resuscitate; Z51.5 Encounter for palliative care; E66.01 Morbid (severe) obesity due to excess calories; E03.9 Hypothyroidism, unspecified; F32.A Depression, unspecified; I48.0 Paroxysmal atrial fibrillation; N18.2 Chronic kidney disease, stage 2 (mild); K21.9 Gastro-esophageal reflux disease without esophagitis; E87.6 Hypokalemia; G47.33 Obstructive sleep apnea (adult) (pediatric); E78.5 Hyperlipidemia, unspecified; F41.9 Anxiety disorder, unspecified; Z79.891 Long term (current) use of opiate analgesic; Z95.0 Presence of cardiac pacemaker; Z86.73 Personal history of transient ischemic attack (TIA), and cerebral infarction without residual deficits; Z79.82 Long term (current) use of aspirin
CPT/HCPCS: 36415; 71046; 71275; 80048; 80053; 80061; 80076; 81001; 83690; 83735; 83880; 84439; 84443; 84484; 85025; 85379; 85610; 85730; 87086; 87088; 87631; 87633; 93005; 94002; 94003; 94640; 94668; 94762; 97162; 97166; 97803; 99285; Q9967; A4216; J1940

== ENCOUNTER → 2024-05-25 | Outpatient (CLI) | payer MEDICARE, OTHER, SELFPAY ==
[2024-05-25 12:58] LABS: Hematocrit 37.3 % (37-47); Hemoglobin 12.6 g/dL (12.0-15.0); Mean Corp Hgb Conc 33.8 g/dL (32-36); Mean Corpuscular Hgb 28.4 pg (27.0-32.0); Mean Platelet Vol. 11.1 fl (6.2-12.0); Platelet Count 256 K/mm3 (150-450); RBC Distribution Width CV 15.5 % (11.6-14.6); RBC Distribution Width SD 47.2 fl (35.1-43.9); Red Blood Count 4.44 M/mm3 (4.2-5.4); White Blood Count 10.3 K/mm3 (4.4-11.0)
[2024-05-25 13:17] LABS: BNP,B-Type NATRIURETIC PEPTIDE 33.8 pg/mL (0-100)
== END | disposition home or self-care (01) ==
LOC: LABSPEC 12:28
PROVIDERS: PCP Student in an Organized Health Care Education/Training Program; Referring Provider Student in an Organized Health Care Education/Training Program; Visit Provider Student in an Organized Health Care Education/Training Program
DX: I13.0 Hypertensive heart and chronic kidney disease with heart failure and stage 1 through stage 4 chronic kidney disease, or unspecified chronic kidney disease (principal); I50.9 Heart failure, unspecified; N18.9 Chronic kidney disease, unspecified
CPT/HCPCS: 83880; 85027

== ENCOUNTER 2024-06-02 12:44 | Outpatient (RCR) | payer MEDICARE, OTHER, SELFPAY ==
[2024-05-18 16:03] LABS: Hematocrit 35.5 % (37-47); Hemoglobin 11.6 g/dL (12.0-15.0); Mean Corp Hgb Conc 32.7 g/dL (32-36); Mean Corpuscular Hgb 27.8 pg (27.0-32.0); Mean Corpuscular Volume 84.9 fL (81-99); Platelet Count 263 K/mm3 (150-450); RBC Distribution Width CV 15.9 % (11.6-14.6); RBC Distribution Width SD 48.9 fl (35.1-43.9); Red Blood Count 4.18 M/mm3 (4.2-5.4); White Blood Count 9.2 K/mm3 (4.4-11.0)
[2024-05-18 16:32] LABS: BNP,B-Type NATRIURETIC PEPTIDE 38.6 pg/mL (0-100)
[2024-05-18 16:33] LABS: ALB/GLOB Ratio 1.1 RATIO (0.9-2.4); AST(SGOT) 25 U/L (15-37); Alanine Aminotransfer ALT/SGPT 30 U/L (13-56); Albumin, Serum 3.4 g/dL (3.2-5.0); Alkaline Phosphatase 77 U/L (45-117); Anion Gap 9 (5-15); BUN 28 mg/dL (7-18); BUN/Creat Ratio 26.7 RATIO (10-20); Chloride 90 mmol/L (98-107); Creatinine, Serum 1.05 mg/dL (0.55-1.02); EST Glomerular Filtration Rate 53 mL/min (>60); Est Glom Filt Rate - Afr Amer 64 mL/min (>60); Globulin 3.1 g/dL (2.2-4.2); Glucose 99 mg/dL (74-106); Protein, Total 6.5 g/dL (6.4-8.2); Sodium Level 128 mmol/L (136-145)
[2024-05-19 11:30] LABS: Bilirubin, Direct 0.28 mg/dL (0.00-0.30)
[2024-06-02 17:03] LABS: AST(SGOT) 51 U/L (15-37); Alanine Aminotransfer ALT/SGPT 84 U/L (13-56); Albumin, Serum 3.3 g/dL (3.2-5.0); Alkaline Phosphatase 85 U/L (45-117); Anion Gap 6 (5-15); BUN 29 mg/dL (7-18); BUN/Creat Ratio 33.2 RATIO (10-20); Calcium,Total 9.1 mg/dL (8.5-10.1); Chloride 99 mmol/L (98-107); Creatinine, Serum 0.87 mg/dL (0.55-1.02); EST Glomerular Filtration Rate 66 mL/min (>60); Est Glom Filt Rate - Afr Amer 80 mL/min (>60); Globulin 3.4 g/dL (2.2-4.2); Glucose 99 mg/dL (74-106); Potassium 5.1 mmol/L (3.5-5.1); Protein, Total 6.7 g/dL (6.4-8.2); Sodium Level 133 mmol/L (136-145)
== END 2024-06-02 18:00 | disposition home or self-care (01) ==
LOC: HHLAB 12:44
PROVIDERS: PCP Student in an Organized Health Care Education/Training Program; Referring Provider Student in an Organized Health Care Education/Training Program; Visit Provider Student in an Organized Health Care Education/Training Program
DX: I13.0 Hypertensive heart and chronic kidney disease with heart failure and stage 1 through stage 4 chronic kidney disease, or unspecified chronic kidney disease; N18.9 Chronic kidney disease, unspecified; I50.9 Heart failure, unspecified
CPT/HCPCS: 80053; 82248; 83880; 85027

== ENCOUNTER → 2024-06-22 | Outpatient (CLI) | payer MEDICARE, OTHER, SELFPAY | END | disposition home or self-care (01) | LOC: PSN 08:31 | PROVIDERS: PCP Student in an Organized Health Care Education/Training Program; Referring Provider Physician Assistant Medical; Visit Provider Physician Assistant Medical | DX: Z79.899 Other long term (current) drug therapy (principal) | CPT/HCPCS: 94060; 94726; 94729 ==

== ENCOUNTER → 2024-07-03 | Outpatient (CLI) | payer MEDICARE, OTHER, SELFPAY ==
--- NOTE | 2024-07-03 12:44 | CDU_ITS ---
Reason For Study Reason For Study: Rt Bruit Rt. Velocities/BP Lt. Velocities/BP Prox CCA 70/13 cm/sec. Prox CCA 113/19 cm/sec. Mid CCA 99/17 cm/sec. Mid CCA 97/17 cm/sec. Dist CCA 90/17 cm/sec. Dist CCA 100/10 cm/sec. Prox ICA 82/14 cm/sec. Prox ICA 121/24 cm/sec. Mid ICA 93/23 cm/sec. Mid ICA 108/19 cm/sec. Dist ICA 103/28 cm/sec. Dist ICA 110/23 cm/sec. Rt. ICA/CCA = 1.0. Lt. ICA/CCA = 1.3. Prox ECA 141/8 cm/sec. Prox ECA 113/7 cm/sec. Rt. Vert. 56/9 cm/sec. Lt. Vert. 56/11 cm/sec. Right Extracranial There is heterogeneous, irregular atherosclerotic plaque noted in the right common carotid artery. There is heterogeneous, smooth atherosclerotic plaque noted in the right internal carotid artery. There is heterogeneous, irregular atherosclerotic plaque noted in the right external carotid artery. Antegrade flow is noted in the right vertebral artery. Left Extracranial There is intimal thickening but no significant atherosclerotic plaque noted in the left common carotid artery. There is heterogeneous, irregular atherosclerotic plaque noted in the left internal carotid artery. There is intimal thickening but no significant atherosclerotic plaque noted in the left external carotid artery. Antegrade flow is noted in the left vertebral artery. Procedure Carotid Duplex [id number]. This is a Carotid Duplex examination using B-mode, color flow and specral Doppler. Exam performed in department. VL/Carotid Duplex Ultrasound Interpretation Summary Mild (<50%) stenosis right extracranial internal carotid. Mild (<50%) stenosis left extracranial internal carotid. Patent and antegrade vertebrals bilaterally. Ordering Physician: Anabel Horne Referring Physician: Michael Puga Performed By: Ernestine Elliott, CHASE, RVT
== END | disposition home or self-care (01) ==
LOC: CVS 12:42
PROVIDERS: PCP Student in an Organized Health Care Education/Training Program; Referring Provider Physician Assistant Medical; Visit Provider Physician Assistant Medical
DX: R09.89 Other specified symptoms and signs involving the circulatory and respiratory systems (principal)
CPT/HCPCS: 93880

== ENCOUNTER → 2024-07-07 | Outpatient (CLI) | payer MEDICARE, OTHER, SELFPAY ==
[2024-07-07 19:14] LABS: Anion Gap 20 (5-15); BUN 35 mg/dL (4-19); BUN/Creat Ratio 26.5 RATIO (10-20); Calcium,Total 9.5 mg/dL (7.6-11.0); Carbon Dioxide 19.7 mmol/L (21.0-32.0); Chloride 97 mmol/L (98-108); EST Glomerular Filtration Rate 41 (>60); Glucose 99 mg/dL (70-99); Potassium 4.3 mmol/L (3.3-5.1); Sodium Level 137 mmol/L (133-145)
== END | disposition home or self-care (01) ==
LOC: MTLAB 14:50
PROVIDERS: PCP Student in an Organized Health Care Education/Training Program; Referring Provider Physician Assistant Medical; Visit Provider Physician Assistant Medical
DX: I50.9 Heart failure, unspecified (principal); Z51.81 Encounter for therapeutic drug level monitoring; Z79.899 Other long term (current) drug therapy
CPT/HCPCS: 36415; 80048

== ENCOUNTER → 2024-10-31 | Outpatient (CLI) | payer MEDICARE, OTHER, SELFPAY ==
--- NOTE | 2024-10-31 14:01 | RAD_ITS ---
PROCEDURE: CHEST PA AND LATERAL 10/31/2024 REASON FOR EXAM: SHORTNESS OF BREATH TECHNIQUE: CHEST PA AND LATERAL COMPARISON: 04/30/2024 FINDINGS: Hardware: Stable appearance of the left subclavian pacemaker Heart: The heart size is normal. Mediastinum: The mediastinal contour is stable. Lungs: Chronic interstitial changes in both lung ochoa without a superimposed acute pulmonary process Bones: Degenerative changes are identified within the thoracic spine. RAD/Chest PA and Lateral IMPRESSION: Chronic interstitial changes, no superimposed acute pulmonary process, no inter iraj change Reading Location: [id number]
--- NOTE | 2024-10-31 14:01 | RAD_ITS ---
PROCEDURE: CHEST PA AND LATERAL 10/31/2024 REASON FOR EXAM: SHORTNESS OF BREATH TECHNIQUE: CHEST PA AND LATERAL COMPARISON: 04/30/2024 FINDINGS: Hardware: Stable appearance of the left subclavian pacemaker Heart: The heart size is normal. Mediastinum: The mediastinal contour is stable. Lungs: Chronic interstitial changes in both lung ochoa without a superimposed acute pulmonary process Bones: Degenerative changes are identified within the thoracic spine. RAD/Chest PA and Lateral IMPRESSION: Chronic interstitial changes, no superimposed acute pulmonary process, no inter iraj change Reading Location: [id number]
[2024-10-31 14:46] LABS: Hematocrit 37.0 % (37-47); Hemoglobin 12.4 g/dL (12.0-15.0); Immature Granulocytes Count 0.070 X10^3/uL (0.0-0.0); Mean Corp Hgb Conc 33.5 g/dL (32-36); Mean Corpuscular Volume 90.5 fL (81-99); Mean Platelet Vol. 10.1 fl (6.2-12.0); NRBC Flagged by Analyzer 0 % (0-5); Platelet Count 292 K/mm3 (150-450); RBC Distribution Width CV 14.4 % (11.6-14.6); RBC Distribution Width SD 47.9 fl (35.1-43.9); Red Blood Count 4.09 M/mm3 (4.2-5.4); White Blood Count 13.3 K/mm3 (4.4-11.0)
[2024-10-31 15:22] LABS: Pro- Brain NATRIURETIC PEPTIDE 216 pg/mL (<=1800)
[2024-10-31 15:31] LABS: Anion Gap 14 (5-15); BUN 37 mg/dL (4-19); BUN/Creat Ratio 26.2 RATIO (10-20); Calcium,Total 9.0 mg/dL (7.6-11.0); Carbon Dioxide 23.0 mmol/L (21.0-32.0); Chloride 96 mmol/L (98-108); Glucose 94 mg/dL (70-99); Potassium 5.0 mmol/L (3.3-5.1)
== END | disposition home or self-care (01) ==
LOC: RAD 14:01
PROVIDERS: PCP Student in an Organized Health Care Education/Training Program; Referring Provider Physician Assistant Medical; Visit Provider Physician Assistant Medical
DX: R06.09 Other forms of dyspnea (principal); I27.20 Pulmonary hypertension, unspecified; I50.9 Heart failure, unspecified; Z79.899 Other long term (current) drug therapy; Z51.81 Encounter for therapeutic drug level monitoring; R06.02 Shortness of breath; R53.83 Other fatigue
CPT/HCPCS: 36415; 71046; 80048; 83880; 84443; 85025

== ENCOUNTER 2024-11-29 15:54 | Observation (INO) | payer MEDICARE, OTHER, SELFPAY ==
[2024-11-29] VITALS (7 sets, daily range): BP systolic 146–229; BP diastolic 56–78; PULSE 60–68; RESP 17–18; TEMP 36.6–36.8; O2SAT 92–97; BMI 41.8; BMI 39.2
--- NOTE | 2024-11-29 16:02 | EX.ED.DYSGE1 ---
HPI History of Present Illness Chief Complaint: Weakness Informant: patient Onset/Context/Timing Onset: Yesterday Context: Sudden Onset Timing: Continuous Quality: Shaking Location: Right upper and lower extremities Worsened by: Standing Relieved by: Rest Narrative Narrative: Patient presents with tremors to her right upper and lower extremities that began yesterday. Patient states she has shaking in her right upper and lower extremity. Patient states it is worse with standing. Patient states it does get better with rest. Patient states that has been constant since yesterday. Patient denies any trauma or injury. Patient denies any headaches. Patient denies any paresthesias or weakness. Patient does admit to some low back pain. Patient denies any headaches. Patient denies any motor or sensory deficits. Patient is concerned because she lives at home alone and she is concerned that she may fall because of this. 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 Right carotid bruit Pulmonary hypertension Obesity TIA (transient ischemic attack) (12/2018) GI bleed (2018) Essential (primary) hypertension Osteoarthritis Anxiety Daytime somnolence Dysmetabolic syndrome X Allergic rhinitis Malignant melanoma of skin of trunk, except scrotum Hyperlipidemia FH: sudden cardiac (SCD) Depression Paroxysmal atrial fibrillation Sick sinus syndrome Carotid artery disease Home Medications ?Medication ?Instructions ?Recorded ?Last Taken ?Type lorazepam 0.5 mg tablet 0.5 mg PO BID PRN PRN Anxiety 05/13/16 Unknown History aspirin 81 mg tablet,delayed 81 mg PO QDAY [employer] #90 tabs 12/27/18 Unknown Rx release (Adult Low Dose Aspirin) coenzyme Q10 100 mg capsule (Co 100 mg PO DAILY supplement 01/23/20 Unknown History Q-10) rosuvastatin 10 mg tablet 10 mg PO DAILY cholesterol 01/23/20 Unknown History sucralfate 100 mg/mL oral 10 ml PO TID PRN digestion 11/25/21 Unknown History suspension cyclosporine 0.05 % eye drops in a 1 drp EACH EYE Q12H eye health 09/27/23 Unknown History dropperette (Restasis) albuterol sulfate 90 mcg/actuation 2 puff inhalation Q6H PRN 10/02/23 Unknown Rx aerosol inhaler (ProAir HFA) shortness of breath or wheezing #6.7 grams levothyroxine 50 mcg capsule 50 mcg PO QDAY 01/25/24 Unknown History spironolactone 25 mg tablet 25 mg PO DAILY #30 tabs 01/25/24 Unknown Rx fluticasone propionate 110 1 inh inhalation Q12H 04/30/24 Unknown History mcg/actuation HFA aerosol inhaler meloxicam 15 mg tablet 15 mg PO DAILY 04/30/24 Unknown History vitamin B complex (Balanced B-50 1 tab PO DAILY 04/30/24 Unknown History tablet) diltiazem HCl 240 mg 240 mg PO QHS heart #90 caps 05/15/24 Unknown Rx capsule,extended release 24 hr hydralazine 50 mg tablet 50 mg PO BID #180 tabs 06/01/24 Unknown Rx furosemide 20 mg tablet 20 mg PO QDAY 07/06/24 Unknown History amiodarone 200 mg tablet 200 mg PO DAILY heart #90 tabs 07/20/24 Unknown Rx losartan 100 mg tablet 100 mg PO DAILY blood pressure #90 09/11/24 Unknown Rx tabs azelastine 0.05 % eye drops 1 drp ophthalmic (eye) BID PRN 11/02/24 Unknown History omeprazole 20 mg capsule,delayed 20 mg PO QDAY 11/02/24 Unknown History release paroxetine HCl 40 mg tablet 40 mg PO QDAY 11/02/24 Unknown History gabapentin 100 mg capsule mg PO 11/29/24 Unknown History prednisone 10 mg tablet 10 mg PO DAILY 11/29/24 Unknown History Allergy/AdvReac Type Severity Reaction Status Date / Time ciprofloxacin (From Cipro) Allergy Rash Verified 11/29/24 16:08 Penicillins (PCN) Allergy Hives Verified 11/29/24 16:08 Sulfa (Sulfonamide Allergy Hives Verified 11/29/24 16:08 Antibiotics) Beta-Blockers AdvReac Other Verified 11/29/24 16:08 (Beta-Adrenergic Bloc hydrocodone (From Vicodin) AdvReac Other Verified 11/29/24 16:08 lisinopril AdvReac cough Verified 11/29/24 16:08 meperidine (From Demerol) AdvReac Vomiting Verified 11/29/24 16:08 morphine AdvReac Other Verified 11/29/24 16:08 pravastatin AdvReac Other Verified 11/29/24 16:08 Family History Grandfather Myocardial infarction Sudden cardiac Father Myocardial infarction CAD (coronary artery disease) CHF (congestive heart failure) Mother Myocardial infarction CAD (coronary artery disease) A-fib Brother A-fib CHF (congestive heart failure) Brother Cancer Son Diabetes Son Hypertension Surgical History History of permanent cardiac pacemaker placement (06/09/21) History of esophagogastroduodenoscopy (EGD) (09/07/18) History of left heart catheterization (LHC) (05/2011) 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) History of total right knee replacement (TKR) (~08/2011) History of right hip replacement (~2003) History of cholecystectomy History of total left knee replacement (TKR) Social History housing: house Smoking Status: Never smoker alcohol intake: never substance use type: does not use caffeine: Yes what type of physical activity do you participate in: none seatbelt use: always ROS ROS ED Constitutional Constitutional ED: Denies chills or fever(s) Eyes Eyes: Denies blurry vision or change in vision ENT ENT ED: Denies rhinorrhea or sore throat Cardiovascular Cardiovascular: Denies chest pain or palpitations Respiratory/Chest Respiratory/Chest: Denies cough or dyspnea Gastrointestinal Gastrointestinal: Denies nausea or vomiting Genitourinary Genitourinary ED: Denies dysuria or hematuria Musculoskeletal Musculoskeletal: Reports back pain; Denies neck pain Integumentary Denies abscess or rash Neurologic Neurologic: Denies headache(s) or weakness Allergic/Immunologic Allergic/Immunologic ED: Denies mouth swelling or urticaria EXAM Physical Exam Const Vital Signs: 11/29/24 15:58 11/29/24 17:55 11/29/24 19:00 Temperature 98.2 F Temperature Source Oral Pulse Rate 60 60 60 Respiratory Rate 18 17 Blood Pressure 229/78 H 200/67 H 196/70 H Blood Pressure Mean 128 111 112 Pulse Ox 96 94 Oxygen Delivery Method Room Air 11/29/24 21:09 Temperature Temperature Source Pulse Rate 68 Respiratory Rate 18 Blood Pressure 176/59 H Blood Pressure Mean 98 Pulse Ox 96 Oxygen Delivery Method Room Air Positive well nourished and well developed Constitutional Narrative: BMI is 41.9. General Appearance ED: well developed and NAD HEENT Reports moist mucous membranes Neck supple and no JVD Resp normal respiratory effort and clear to auscultation bilaterally Cardio regular rate and regular rhythm GI non-tender and non-distended Palpation: soft Extremity normal to inspection General Extremety ED: Negative for edema or tenderness General Extremity: Negative for edema Neuro oriented x3, CN's II-XII intact bilaterally and no sensory deficits noted Neuro Narrative: There is an intermittent tremor of the right upper and lower extremity. Sensorium / Orientation: alert Motor Exam: strength 5/5 throughout Psych mental status grossly normal Skin no rashes or lesions noted MDM MDM MDM Narrative Medical decision making narrative: Differential diagnosis includes electrolyte abnormality, dehydration, stroke, intracranial bleeding, hypertensive urgency, hypertensive emergency, essential tremor, hyperthyroidism, hypothyroidism, and electrolyte abnormality. CT scan of the brain will be obtained to assess for intracranial bleeding and stroke. CBC will be obtained to assess for leukocytosis and anemia. Comprehensive metabolic profile will be obtained to assess for hepatic function, renal function, and electrolyte abnormality. TSH will be obtained to assess for hyperthyroidism and hypothyroidism. Urinalysis will be obtained to assess for urinary tract infection and hematuria. History & Record Review Additional record(s) reviewed:: Prior inpatient record, Prior outpatient record, Prior ED visit and Prior labs Lab Data Attestation: I reviewed the patient's lab results. Lab results narrative: CBC was reviewed. There is a mild anemia with a hemoglobin of 11.6 and hematocrit 34.5. Comprehensive metabolic profile was reviewed. BUN was slightly elevated at 38 and creatinine was normal at 1.11. Lipase was reviewed and was normal at 20. TSH was reviewed and was normal at 2.19. Urinalysis was reviewed. Leukocyte esterase was 500. There is 0-5 white blood cells 0-5 epithelial cells and 0 bacteria noted. Labs: Laboratory Results - last 24 hr 11/29/24 16:33 WBC 9.6 RBC 3.86 L Hgb 11.6 L Hct 34.5 L MCV 89.4 MCH 30.1 MCHC 33.6 RDW Std Deviation 46.8 H RDW Coeff of Chandu 14.4 Plt Count 201 MPV 10.2 Immature Gran % (Auto) 0.500 Neut % (Auto) 72.4 H Lymph % (Auto) 11.5 L [place] % (Auto) 12.1 H Eos % (Auto) 2.9 Baso % (Auto) 0.6 Absolute Neuts (auto) 7.0 Absolute Lymphs (auto) 1.10 Nucleated RBC % 0 Sodium 133 Potassium 5.0 Chloride 98 Carbon Dioxide 22.9 Anion Gap 12 BUN 38 H Creatinine 1.11 Estim Creat Clear Calc 48.43 L Est GFR (MDRD) Non-Af 49 L BUN/Creatinine Ratio 34.3 H Glucose 94 Calcium 8.9 Total Bilirubin 0.57 AST 29 ALT 37 H Alkaline Phosphatase 63 Total Protein 6.3 Albumin 4.0 Globulin 2.4 Albumin/Globulin Ratio 1.7 Lipase 20 TSH 2.190 Urine Color Yellow Urine Clarity Clear Urine pH 6.0 Ur Specific [place] 1.010 Urine Protein Negative Urine Glucose (UA) Normal Urine Ketones Negative Urine Occult Blood Negative Urine Nitrite Negative Urine Bilirubin Negative Urine Urobilinogen Normal Ur Leukocyte Esterase 500 H Urine RBC 0 SEEN Urine WBC 0-5 SEEN Ur Squamous Epith Cells 0-5 SEEN Urine Bacteria 0 SEEN Urine Mucus 0 SEEN Radiography Diagnostic Testing: Clinical Impression(s) from Imaging Studies Brain CT 11/29/24 16:22 IMPRESSION: No acute intracranial abnormality. Reading Location: [facility] CT scan of the brain was obtained. There is no acute intracranial abnormality. This was interpreted by the radiologist and was also independently reviewed by myself. Management Discussion w/another healthcare provider: Hospitalist Treatment and Re-Evaluation :: Patient was given a dose of IV hydralazine. Patient's blood pressure improved after this to 176/59. Patient was advised of her findings. Patient attempted ambulation with a walker. Patient was very unsteady even with standing. Because of this, I recommended admission to the hospital. Case was discussed with the hospitalist. He will admit the patient for observation to PCU. Patient understood and was agreeable with the plan. All questions were answered. Discharge Plan Triage Chief Complaint: Weakness ED Provider: Virgil Tyler Dx/Rx/DC Orders Clinical Impression: Tremor, Essential (primary) hypertension, Inability to walk Prescriptions: No Action aspirin [Adult Low Dose Aspirin] 81 mg tablet,delayed release (DR/EC) 81 mg PO QDAY Qty: 90 3RF rosuvastatin 10 mg tablet 10 mg PO DAILY coenzyme Q10 [Co Q-10] 100 mg capsule 100 mg PO DAILY sucralfate 100 mg/mL suspension 10 ml PO TID PRN (Reason: digestion) Patient Comments: TAKE 10 ML BY MOUTH 4 TIMES DAILY levothyroxine 50 mcg capsule 50 mcg PO QDAY spironolactone 25 mg tablet 25 mg PO DAILY Qty: 30 11RF hydralazine 50 mg tablet 50 mg PO BID Qty: 180 3RF omeprazole 20 mg capsule,delayed release(DR/EC) 20 mg PO QDAY paroxetine HCl 40 mg tablet 40 mg PO QDAY lorazepam 0.5 MG tablet 0.5 mg PO BID PRN PRN (Reason: Anxiety) cyclosporine [Restasis] 0.05 % dropperette 1 drp EACH EYE Q12H albuterol sulfate [ProAir HFA] 90 mcg/actuation HFA aerosol inhaler 2 puff inhalation Q6H PRN (Reason: shortness of breath or wheezing) Qty: 6.7 0RF vitamin B complex [Balanced B-50] Tablet 1 tab PO DAILY fluticasone propionate 110 mcg/actuation HFA aerosol inhaler 1 inh inhalation Q12H meloxicam 15 mg tablet 15 mg PO DAILY azelastine 0.05 % drops 1 drp ophthalmic (eye) BID PRN prednisone 10 mg tablet 10 mg PO DAILY gabapentin 100 mg capsule PO diltiazem HCl 240 mg capsule,extended release 24hr 240 mg PO QHS Qty: 90 3RF furosemide 20 mg tablet 20 mg PO QDAY amiodarone 200 mg tablet 200 mg PO DAILY Qty: 90 3RF losartan 100 mg tablet 100 mg PO DAILY Qty: 90 3RF Primary Care Provider: Michael Puga Referrals: Michael Puga DO [Primary Care Provider] - Print Language: Cambodian Disposition Disposition: Acute Care Hospital [facility]
--- NOTE | 2024-11-29 16:22 | CT_ITS ---
PROCEDURE: CT BRAIN/HEAD WITHOUT CONTRAST 11/29/2024 REASON FOR EXAM: TREMOR TECHNIQUE: CT BRAIN/HEAD WITHOUT CONTRAST. Coronal and Sagittal reconstruction series were provided. One or more dose reduction techniques were used (e.g., Automated exposure control, adjustment of the mA and/or kV according to patient size, use of iterative reconstruction technique. RADIATION DOSE SUMMARY: CTDlvol: 47.06 mGy DLP: 890.33 mGycm COMPARISON: 12/26/2021 FINDINGS: No acute intracranial hemorrhage, extra-axial collection, mass effect or evidence of acute infarct. Mild age-appropriate generalized brain parenchymal volume loss and chronic microangiopathic changes. Absent [place] ocular lenses. Intact skull base and calvarium. Clear sinuses and mastoids. CT/Brain/Head without Contrast IMPRESSION: No acute intracranial abnormality. Reading Location: [id number]
--- NOTE | 2024-11-29 16:22 | CT_ITS ---
PROCEDURE: CT BRAIN/HEAD WITHOUT CONTRAST 11/29/2024 REASON FOR EXAM: TREMOR TECHNIQUE: CT BRAIN/HEAD WITHOUT CONTRAST. Coronal and Sagittal reconstruction series were provided. One or more dose reduction techniques were used (e.g., Automated exposure control, adjustment of the mA and/or kV according to patient size, use of iterative reconstruction technique. RADIATION DOSE SUMMARY: CTDlvol: 47.06 mGy DLP: 890.33 mGycm COMPARISON: 12/26/2021 FINDINGS: No acute intracranial hemorrhage, extra-axial collection, mass effect or evidence of acute infarct. Mild age-appropriate generalized brain parenchymal volume loss and chronic microangiopathic changes. Absent [place] ocular lenses. Intact skull base and calvarium. Clear sinuses and mastoids. CT/Brain/Head without Contrast IMPRESSION: No acute intracranial abnormality. Reading Location: [id number]
[2024-11-29 16:54] LABS: Mucous, Urine 0 SEEN /hpf (<or=2+); Red Blood Cells-Urine 0 SEEN /hpf (0-5)
[2024-11-29 17:17] LABS: Hematocrit 34.5 % (37-47); Hemoglobin 11.6 g/dL (12.0-15.0); Immature Granulocytes Count 0.050 X10^3/uL (0.0-0.0); Mean Corp Hgb Conc 33.6 g/dL (32-36); Mean Corpuscular Volume 89.4 fL (81-99); Mean Platelet Vol. 10.2 fl (6.2-12.0); NRBC Flagged by Analyzer 0 % (0-5); Platelet Count 201 K/mm3 (150-450); RBC Distribution Width CV 14.4 % (11.6-14.6); RBC Distribution Width SD 46.8 fl (35.1-43.9); Red Blood Count 3.86 M/mm3 (4.2-5.4); White Blood Count 9.6 K/mm3 (4.4-11.0)
[2024-11-29 17:38] LABS: Lipase 20 U/L (13-75)
[2024-11-29 17:42] LABS: AST(SGOT) 29 U/L (<=31); Alanine Aminotransfer ALT/SGPT 37 U/L (<=34); Albumin, Serum 4.0 g/dL (3.4-4.8); Alkaline Phosphatase 63 U/L (35-104); Anion Gap 12 (5-15); BUN 38 mg/dL (4-19); BUN/Creat Ratio 34.3 RATIO (10-20); Calcium,Total 8.9 mg/dL (7.6-11.0); Carbon Dioxide 22.9 mmol/L (21.0-32.0); Chloride 98 mmol/L (98-108); Estimated Creatinine Clearance 48.43 ml/min (50-250); Globulin 2.4 g/dL (2.2-4.2); Glucose 94 mg/dL (70-99); Potassium 5.0 mmol/L (3.3-5.1)
[2024-11-29 17:44] LABS: Color, Urine Yellow (Yellow); Glucose, Dipstick Normal (Normal); Ketone-Dipstick Negative (Negative); Leukocyte Esterase-Dipstick 500 /ul (Negative); Nitrite-Dipstick Negative (Negative); Occult Blood-Urine Negative /ul (Negative); Protein-Dipstick Negative (Negative); Specific Gravity, Urine 1.010 (1.002-1.030); Urine Bilirubin Dipstick Negative (Negative)
[2024-11-29 18:05] LABS: Squamous Epithelial Cells - UA 0-5 SEEN /hpf (5-10)
--- NOTE | 2024-11-29 21:20 | PCM.HP.STD ---
[facility] - General General Date of Admission: 11/29/24 Date of Service: 11/29/24 Chief Complaint: Right Upper and Lower Extremity Tremors. HPI Narrative MICHAEL PATTERSON, is a 84 F with a past medical history of essential hypertension; on losartan, hydralazine twice daily, spironolactone and furosemide, hyperlipidemia; on rosuvastatin, hypothyroidism; on levothyroxine, history of paroxysmal atrial fibrillation; on baby aspirin, diltiazem and amiodarone, history of SSS; s/p PPM (2021), history of TIA (2018), morbid obesity; with BMI of 41.9 this admission, JOSE, history of pulmonary hypertension, history of Right carotid bruit, neuropathy; on gabapentin, depression with anxiety; on paroxetine and lorazepam twice daily as needed, GERD with history of GI bleed; on omeprazole plus sucralfate 3 times daily and OA; on meloxicam who presents to [facility] ER complaining of Right upper and lower extremity tremors. Ms. Patterson reports her symptoms began yesterday when she suddenly developed shaking in her Right upper and lower extremities. She states the tremor is made worse with standing but it does get better with rest with associated low back pain. Since yesterday she states it has been nearly constant so she decided to come in for further evaluation and treatment. She denies recent trauma, injury or similar previous episodes. She also denies associated headache, paresthesia or other focal motor or sensory neurologic deficits. There was also no report of fever, chills, runny nose, sore throat, ear pain, chest pain, palpitations, heart racing, lower extremity edema, dysuria, hematuria or rash. She explained to the ER physician that she is concerned because she lives at home alone because she may fall so decision was made to contact the hospitalist service. In the ER she was noted to have a highly elevated blood pressure of 229/78 mmHg present on admission consistent with suspected Hypertensive Emergency complicated by new-onset Right upper and lower extremity tremors with a corresponding head CT without contrast that revealed no acute intracranial abnormality. She was then admitted to the PCU under observation status for ongoing care for state that is expected to be less than 2 midnights. [facility] Medical History jail current use of amiodarone Right carotid bruit Pulmonary hypertension Obesity TIA (transient ischemic attack) (12/2018) GI bleed (2018) Essential (primary) hypertension Osteoarthritis Anxiety Daytime somnolence Dysmetabolic syndrome X Allergic rhinitis Malignant melanoma of skin of trunk, except scrotum Hyperlipidemia FH: sudden cardiac (SCD) Depression Paroxysmal atrial fibrillation Sick sinus syndrome Carotid artery disease Home Medications ?Medication ?Instructions ?Recorded ?Last Taken ?Type lorazepam 0.5 mg tablet 0.5 mg PO BID PRN PRN Anxiety 05/13/16 Unknown History aspirin 81 mg tablet,delayed 81 mg PO QDAY heart health #90 tabs 12/27/18 Unknown Rx release (Adult Low Dose Aspirin) coenzyme Q10 100 mg capsule (Co 100 mg PO DAILY supplement 01/23/20 Unknown History Q-10) rosuvastatin 10 mg tablet 10 mg PO DAILY cholesterol 01/23/20 Unknown History sucralfate 100 mg/mL oral 10 ml PO TID PRN digestion 11/25/21 Unknown History suspension cyclosporine 0.05 % eye drops in a 1 drp EACH EYE Q12H eye health 09/27/23 Unknown History dropperette (Restasis) albuterol sulfate 90 mcg/actuation 2 puff inhalation Q6H PRN 10/02/23 Unknown Rx aerosol inhaler (ProAir HFA) shortness of breath or wheezing #6.7 grams levothyroxine 50 mcg capsule 50 mcg PO QDAY 01/25/24 Unknown History spironolactone 25 mg tablet 25 mg PO DAILY #30 tabs 01/25/24 Unknown Rx fluticasone propionate 110 1 inh inhalation Q12H 04/30/24 Unknown History mcg/actuation HFA aerosol inhaler meloxicam 15 mg tablet 15 mg PO DAILY 04/30/24 Unknown History vitamin B complex (Balanced B-50 1 tab PO DAILY 04/30/24 Unknown History tablet) diltiazem HCl 240 mg 240 mg PO QHS heart #90 caps 05/15/24 Unknown Rx capsule,extended release 24 hr hydralazine 50 mg tablet 50 mg PO BID #180 tabs 06/01/24 Unknown Rx furosemide 20 mg tablet 20 mg PO QDAY 07/06/24 Unknown History amiodarone 200 mg tablet 200 mg PO DAILY heart #90 tabs 07/20/24 Unknown Rx losartan 100 mg tablet 100 mg PO DAILY blood pressure #90 09/11/24 Unknown Rx tabs azelastine 0.05 % eye drops 1 drp ophthalmic (eye) BID PRN 11/02/24 Unknown History omeprazole 20 mg capsule,delayed 20 mg PO QDAY 11/02/24 Unknown History release paroxetine HCl 40 mg tablet 40 mg PO QDAY 11/02/24 Unknown History gabapentin 100 mg capsule 100 mg PO DAILY neuropathy 11/29/24 Unknown History prednisone 10 mg tablet 10 mg PO DAILY 11/29/24 Unknown History Allergy/AdvReac Type Severity Reaction Status Date / Time ciprofloxacin (From Cipro) Allergy Rash Verified 11/29/24 16:08 Penicillins (PCN) Allergy Hives Verified 11/29/24 16:08 Sulfa (Sulfonamide Allergy Hives Verified 11/29/24 16:08 Antibiotics) Beta-Blockers AdvReac Other Verified 11/29/24 16:08 (Beta-Adrenergic Bloc hydrocodone (From Vicodin) AdvReac Other Verified 11/29/24 16:08 lisinopril AdvReac cough Verified 11/29/24 16:08 meperidine (From Demerol) AdvReac Vomiting Verified 11/29/24 16:08 morphine AdvReac Other Verified 11/29/24 16:08 pravastatin AdvReac Other Verified 11/29/24 16:08 Family History Grandfather Myocardial infarction Sudden cardiac Father Myocardial infarction CAD (coronary artery disease) CHF (congestive heart failure) Mother Myocardial infarction CAD (coronary artery disease) A-fib Brother A-fib CHF (congestive heart failure) Brother Cancer Son Diabetes Son Hypertension Surgical History History of permanent cardiac pacemaker placement (06/09/21) History of esophagogastroduodenoscopy (EGD) (09/07/18) History of left heart catheterization (LHC) (05/2011) 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) History of total right knee replacement (TKR) (~08/2011) History of right hip replacement (~2003) History of cholecystectomy History of total left knee replacement (TKR) Social History housing: house Smoking Status: Never smoker alcohol intake: never substance use type: does not use caffeine: Yes what type of physical activity do you participate in: none seatbelt use: always ROS ROS Narrative Review of Systems: Constitutional: Patient denies fever or chills. Eyes: Patient denies changes in vision or discharge from eyes. ENT: Patient denies runny nose, sore throat or ear pain. Resp: Patient denies shortness of breath or cough. CV: Patient denies chest pain, palpitations, heart racing or lower extremity edema. GI: Patient denies abdominal pain, nausea, vomiting, diarrhea or constipation. : Patient denies dysuria or hematuria. MSK: Patient admits to back pain but she denies neck pain. Skin: Patient denies rash, abscess, wounds or jaundice. Psych: Patient denies symptoms of uncontrolled depression or anxiety. Neuro: Patient admits to tremors in her Right upper and lower extremities as per HPI but she denies headache, paresthesias or focal neurologic deficits. Allergy: Patient denies lip swelling, tongue swelling or urticaria. Hematology: Patient denies easy bleeding or easy bruisability. Endocrinology: Patient denies polyuria, polydipsia, polyphagia or heat/cold intolerance. 14 point ROS was otherwise negative except for positives noted above in HPI. Vital Signs Vital Signs Vital Signs: 11/29/24 15:58 11/29/24 17:55 11/29/24 19:00 Temperature 98.2 F Temperature Source Oral Pulse Rate 60 60 60 Respiratory Rate 18 17 Blood Pressure 229/78 H 200/67 H 196/70 H Blood Pressure Mean 128 111 112 Pulse Ox 96 94 Oxygen Delivery Method Room Air 11/29/24 21:09 Temperature Temperature Source Pulse Rate 68 Respiratory Rate 18 Blood Pressure 176/59 H Blood Pressure Mean 98 Pulse Ox 96 Oxygen Delivery Method Room Air Weight Weight: 251 lb 12.286 oz Body Mass Index (BMI) 41.8 Physical Exam Const alert, oriented x3, no apparent distress, average body habitus and healthy appearing General Appearance: cooperative HEENT normocephalic, head/scalp atraumatic, hearing grossly normal bilaterally and moist oral mucous membranes Eyes PERRL, EOMs intact bilaterally and conjunctivae normal Neck no lymphadenopathy, supple and no JVD Resp normal respiratory effort, no retractions, no use of accessory muscles and clear to auscultation bilaterally Cardio regular rate and regular rhythm GI normal to inspection, nondistended, normoactive bowel sounds, soft to palpation, non-tender and non-distended GI Narrative: Obese. Extremity normal to inspection, full ROM and no clubbing, cyanosis or edema Skin Skin Narrative: Patient has no evidence of rash, abscess, wounds or jaundice. Neuro oriented x3, CN's II-XII intact bilaterally, moves all extremities and no focal motor deficits Neuro Narrative: Intention tremor noted in the Right upper and lower extremity with patient otherwise neurologically intact. Sensorium / Orientation: awake, alert, oriented to person, oriented to place and oriented to time Speech: speech normal Psych affect normal Results Medical Records Data Attestation: I reviewed the patient's medical records Lab / Micro Data Attestation: I reviewed the patient's lab results. 11/29/24 16:33 11/29/24 16:33 Labs: Laboratory Results - last 24 hr 11/29/24 16:33: WBC 9.6, RBC 3.86 L, Hgb 11.6 L, Hct 34.5 L, MCV 89.4, MCH 30.1, MCHC 33.6, RDW Std Deviation 46.8 H, RDW Coeff of Chandu 14.4, Plt Count 201, MPV 10.2, Immature Gran % (Auto) 0.500, Neut % (Auto) 72.4 H, Lymph % (Auto) 11.5 L, Todd % (Auto) 12.1 H, Eos % (Auto) 2.9, Baso % (Auto) 0.6, Absolute Neuts (auto) 7.0, Absolute Lymphs (auto) 1.10, Nucleated RBC % 0, Sodium 133, Potassium 5.0, Chloride 98, Carbon Dioxide 22.9, Anion Gap 12, BUN 38 H, Creatinine 1.11, Estim Creat Clear Calc 48.43 L, Est GFR (MDRD) Non-Af 49 L, BUN/Creatinine Ratio 34.3 H, Glucose 94, Calcium 8.9, Total Bilirubin 0.57, AST 29, ALT 37 H, Alkaline Phosphatase 63, Total Protein 6.3, Albumin 4.0, Globulin 2.4, Albumin/Globulin Ratio 1.7, Lipase 20, TSH 2.190, Urine Color Yellow, Urine Clarity Clear, Urine pH 6.0, Ur Specific Hershey 1.010, Urine Protein Negative, Urine Glucose (UA) Normal, Urine Ketones Negative, Urine Occult Blood Negative, Urine Nitrite Negative, Urine Bilirubin Negative, Urine Urobilinogen Normal, Ur Leukocyte Esterase 500 H, Urine RBC 0 SEEN, Urine WBC 0-5 SEEN, Ur Squamous Epith Cells 0-5 SEEN, Urine Bacteria 0 SEEN, Urine Mucus 0 SEEN Imaging Radiology Impression Brain CT 11/29/24 16:22 IMPRESSION: No acute intracranial abnormality. Reading Location: [id number] Assessment & Plan Assessment/Plan (1) Hypertensive emergency without congestive heart failure: (2) Tremor: (3) Paroxysmal atrial fibrillation: (4) TIA (transient ischemic attack): (5) Morbid obesity with BMI of 40.0-44.9, adult: PLAN: Plan 1. Highly elevated blood pressure of 229/78 mmHg present on admission consistent with suspected Hypertensive Emergency - Admit to PCU under observation status. Continue home regimen plus give IV hydralazine as needed for systolic blood pressure greater than 170 mmHg. Check echocardiogram to evaluate LVEF. Check carotid Doppler to evaluate for stenosis. Check MRI of brain to evaluate for possible CVA. Continue baby aspirin daily. Check TSH, B12, folate, A1c, lipid profile, SAM and UDS to further evaluate. 2. Right upper and lower extremity tremors complicating #1 - Check MRI of the brain without contrast to evaluate for possible CVA or other lesion that may explain her symptoms. PT/OT and Case Management consult treat on rounds in a.m. for further recommendations with help appreciated advance. 3. History of paroxysmal atrial fibrillation; on baby aspirin, diltiazem and amiodarone compounding #1 & #2 - Maintain home regimen as before. 4. History of TIA (2019) adding to the medical complexity of #1 - #3 - Noted with MRI pending as outlined in #2. 5. Morbid (class III) obesity; with BMI of 41.9 this admission plus JOSE adding to the burden of disease outlined from #1 - #4 - Weight loss will be recommended. Check TSH. Resume nocturnal CPAP. This complicates her case and may hamper recovery. 6. Essential hypertension; on losartan, hydralazine twice daily, spironolactone and furosemide - Hold scheduled antihypertensives until CVA definitively ruled out on MRI. 7. Hyperlipidemia; on rosuvastatin - Resume statin and check Lipid Profile. 8. Hypothyroidism; on levothyroxine - Maintain on levothyroxine and check TSH. 9. History of SSS; s/p PPM (2021) - Noted. 10. History of pulmonary hypertension - Stable. 11. History of Right carotid bruit - Noted with carotid Doppler pending for #1. 12. Neuropathy; on gabapentin - Resume gabapentin as before. 13. Depression with anxiety; on paroxetine and lorazepam twice daily as needed - Current therapy to continue as previous. 14. GERD with history of GI bleed; on omeprazole plus sucralfate 3 times daily - Maintain PPI and sucralfate. 15. OA; on meloxicam - Continue meloxicam. 16. DVT prophylaxis - Enoxaparin 40 mg sq BID plus SCD's. Total time: Approximately (but not less than) 85 minutes. Charges/Coding Visit Charges OBSV E&M: 38470 Observ/hosp same date L3
--- NOTE | 2024-11-29 21:46 | ECHOD_ITS ---
Reason For Study Reason For Study: TIAS/CVA Procedure This was a 2D Doppler, Color Flow transthoracic echocardiogram. Exam performed in department. Left Ventricle Normal LV size. Moderate concentric left ventricular hypertrophy. Left ventricular systolic function is normal. The left ventricular ejection fraction is 60 %. No regional wall motion abnormalities noted. Right Ventricle Normal RV size. ICD or pacer leads identified within the right ventricle. Normal systolic function. Atria The left atrium is mildly enlarged. Normal right atrium. Mitral Valve Normal mitral valve. Tricuspid Valve Normal tricuspid valve. Moderate (2+) tricuspid valve insufficiency. Pulmonary artery systolic pressure is 65 mmHg. Moderate pulmonary hypertension. Aortic Valve Trisinus/trileaflet aortic valve. Pulmonic Valve Normal pulmonic valve. Great Vessels Normal aortic root. The pulmonary artery is normal size. Inferior vena cava collapse with sniff. Pericardium/Pleural No pericardial effusion. MMode/2D Measurements & Calculations LVIDd: 4.7 cm IVSd: 1.5 cm LVOT diam: 2.0 cm LVIDs: 2.7 cm LVPWd: 1.3 cm LVOT area: 3.2 cm2 FS: 40.9 % Ao root diam: 3.2 cm LAV(MOD-bp): 75.7 ml LVAd ap4: 29.3 cm2 LAV(MOD-bp) Indexed: 35.7 ml/m2 LVLd ap4: 8.0 cm LAV(MOD-sp2): 75.4 ml EDV(MOD-sp4): 91.3 ml LAV(MOD-sp4): 74.9 ml EDV(sp4-el): 91.1 ml LVAs ap4: 12.2 cm2 LVLs ap4: 5.6 cm ESV(MOD-sp4): 24.0 ml ESV(sp4-el): 22.4 ml EF(MOD-sp4): 73.7 % EF(sp4-el): 75.4 % SV(MOD-sp4): 67.3 ml SV(sp4-el): 68.7 ml LA A4 area: 23.9 cm2 SI(MOD-sp4): 31.7 ml/m2 LA dimension(2D): 3.9 cm RA A4 area: 11.0 cm2 Time Measurements MV dec time: 0.21 sec Doppler Measurements & Calculations MV E max michael: 93.6 cm/sec Lat Peak E' Michael: 12.7 cm/sec Med Peak E' Michael: 8.0 cm/sec MV A max michael: 57.3 cm/sec E/E' lat: 7.4 E/E' med: 11.8 MV E/A: 1.6 MV V2 max: 119.9 cm/sec Ao V2 max: 165.7 cm/sec MV max P.8 mmHg MV dec slope: 442.7 cm/sec2 Ao max P.0 mmHg MV V2 mean: 48.9 cm/sec Ao V2 mean: 115.2 cm/sec MV mean P.2 mmHg Ao mean P.1 mmHg MV V2 VTI: 31.4 cm Ao V2 VTI: 37.3 cm AV (velocity ratio): 0.87 MVA(VTI): 3.3 cm2 REBA(I,D): 2.8 cm2 REBA(V,D): 2.8 cm2 LV V1 max: 144.0 cm/sec SV(LVOT): 103.8 ml PA V2 max: 149.7 cm/sec LV V1 max P.3 mmHg PA V2 mean: 100.1 cm/sec LV V1 mean P.6 mmHg LV V1 mean: 100.1 cm/sec LV V1 VTI: 32.6 cm TR max michael: 390.4 cm/sec TR max P.0 mmHg ECHO/Echo Complete Interpretation Summary Normal LV size. Left ventricular systolic function is normal. Moderate concentric left ventricular hypertrophy. The left ventricular ejection fraction is 60 %. Pulmonary artery systolic pressure is 65 mmHg. Moderate pulmonary hypertension. Ordering Physician: Tacho Davis Referring Physician: Michael Puga, Performed By: Elzbieta Hampton and Student
--- OUTSIDE RECORDS SUMMARY | 2024-11-29 22:01 | XMS RPT_ITS | CCD ---
Author Organization [facility] Care Team Providers Care Range Ecologist Name Role Phone GLYNN Harris, Lisa Ennis Unavailable Unavailable GLYNN Harris, Lisa Ennis Unavailable Unavailable Shalini Montanez Unavailable Shalini Montanez Unavailable GLYNN Harris, Lisa Ennis Unavailable Unavailable Delisa Juárez RN Unavailable Unavailable Michael Puga Unavailable Victorino, Kat Unavailable Unavailable Bernie Barajas Unavailable Unavailabl e Michael Puga DO Primary Care Provider Dr. Michael Puga Primary Care Provider Dr. Michael Puga Referring Provider Yuki Harris Attending Provider Unavailable Dr. Gallo Hickey Attending Provider Dr. Gallo Hickey Referring Provider Michael Puga DO Primary Care Provider Michael Puga DO Primary Care Provider Michael Puga DO Primary Care Provider Michael Puga DO Primary Care Provider Isabella Michel RN Unavailable SHARON JARRETT Referring Unavailable MICHAEL PUGA Primary Care Unavailable KELSEA MO Attending Unavailable Key Portillo APRN.CNP Unavailable Asia Rosales APRN.CNP Unavailable Dr. Michael Puga DO Primary Care Provider Edelmira SZYMANSKI, Dr. Holder Attending Provider Edelmira SZYMANSKI, Dr. Holder Referring Provider Dr. Aravind Recio DO Emergency Provider Roger SZYMANSKI, Dr. Susan Shah Admit Provider Roger SZYMANSKI, Dr. Susan Shah Other Provider Jules SZYMANSKI, Dr. Jonny Salazar Attending Provider Jules SZYMANSKI, Dr. Jonny Salazar Other Provider Edd VELASCO, Dr. Rodriguez Attending Provider Edd VELASCO, Dr. Rodrigeuz Referring Provider Anabel Alexander Attending Provider Anabel Alexander Referring Provider Taina SZYMANSKI, Dr. Herman Attending Provider Mick MANAGER UTILITY.HATCHERY MAN, Isela Radu Unavailable Dr. Michael Puga DO Primary Care Provider Anabel Alexander Attending Provider Anabel Alexander Referring Provider Edelmira SZYMANSKI, Dr. Holder Attending Provider PUGAMICHAEL Primary Care Unavailable ARLENE SCHWARZ Referring Unavailable PUGA, MICHAEL L Primary Care Unavailable ARLENE SCHWARZ Referring Unavailable PUGA, MICHAEL L Primary Care Unavailable JANGEETA PENA Referring Unavailab le PUGA, MICHAEL L Primary Care Unavailable JANGEETA PENA Referring Unavailab le PUGA, MICHAEL L Primary Care Unavailable JANASGEETADIPHU Referring Unavailab le PUGA, MICHAEL L Primary Care Unavailable JANAS, GEETA MARIADICT Referring Unavailab le PUGA, MICHAEL L Primary Care Unavailable JANAS, GEETA TEJADA Referring Unavailab le PUGA, MICHAEL L Primary Care Unavailable JANGEETA PENADICT Referring Unavailab le JANGEETA PENADIPHU Referring Unavailab le PUGA, MICHAEL L Primary Care Unavailable JANJEANGEETA Referring Unavailab le PUGA, MICHAEL L Primary Care Unavailable PUGA, MICHAEL L Primary Care Unavailable GEETA CADET Referring Unavailab le JANAS, GEETA STOCKCT Referring Unavailab le PUGA, MICHAEL L Primary Care Unavailable JANAS, GEETA STOCKCT Referring Unavailab le PUGA, MICHAEL L Primary Care Unavailable PUGA, MICHAEL L Primary Care Unavailable JANAS, GEETA MARIADICT Referring Unavailab le PUGA, MICHAEL L Primary Care Unavailable JANAS, GEETA MARIADICT Referring Unavailab le JANAS, GEETA MARIADICT Referring Unavailab le PUGA, MICHAEL L Primary Care Unavailable PUGA, MICHAEL L Primary Care Unavailable JANAS, GEETA TEJADA Referring Unavailab le PUGA, MICHAEL L Primary Care Unavailable JANJEAN, GEETA TEJADA Referring Unavailab le JANAS, GEETA TEJADA Referring Unavailab le PUGA, MICHAEL L Primary Care Unavailable PUGA, MICHAEL L Primary Care Unavailable ARLENE SCHWARZ Referring Unavailable PUGA, MICHAEL L Primary Care Unavailable PJ BLEDSOE Attending Unavailable ARLENE SCHWARZ Referring Unavailable SHOSHANA, GEEAT TEJADA Referring Unavailab le PUGA, MICHAEL L Primary Care Unavailable PUGA, MICHAEL L Primary Care Unavailable KEY PORTILLO Referring Unavailabl e PUGA, MICHAEL L Primary Care Unavailable GEETA CADET Referring Unavailab le PugaDr. Michael hope DO Primary Care Provider [phone] Anabel Alexander Attending Provider [phone] Anabel Alexander Referring Provider [phone] Dr. Michael Puga DO Referring Provider [phone] Dr. Michael Puga DO Primary Care Provider Anabel Alexander Attending Provider [phone] Anabel Alexander Referring Provider [phone] RAYMUNDO DE LEÓN Referring Unavailable PUGA, MICHAEL L Primary Care Unavailable SHARON JARRETT Attending Unavailable PUGA, MICHAEL L Primary Care Unavailable KEY PORTILLO Attending Unavailabl e PUGA, MICHAEL L Primary Care Unavailable KEY PORTILLO Referring Unavailabl e PUGA, MICHAEL L Primary Care Unavailable PUGA, MICHAEL L Attending Unavailable PUGA, MICHAEL L Primary Care Unavailable ASIA ROSALES Attending Unavailable PUGA, MICHAEL L Primary Care Unavailable PUGA, MICHAEL L Attending Unavailable PUGA, MICHAEL L Primary Care Unavailable PUGA, MICHAEL L Attending Unavailable PUGA, MICHAEL L Primary Care Unavailable PUGA, MICHAEL L Attending Unavailable PUGA, MICHAEL L Primary Care Unavailable SHARON JARRETT Attending Unavailable PUGA, MICHAEL L Referring Unavailable PUGA, MICHAEL L Primary Care Unavailable Puga, Michael Referring Unavailable Puga, Michael Attending Unavailable Puga, Michael Primary Care Unavailable Puga, Michael Referring Unavailable Puga, Michael Attending Unavailable Puga, Michael Primary Care Unavailable Puga, Michael Primary Care Unavailable Edelmira, Elkader Attending Unavailable Puga, Michael Primary Care Unavailable Anabel Horne Attending Unavailabl Anabel Santiago Referring Unavailabl e Puga, Michael Primary Care Unavailable Anabel Horne Referring Unavailabl Anabel Santiago Attending Unavailabl e Edelmira, Gallo Referring Unavailable Puga, Michael Primary Care Unavailable Puga, Michael Attending Unavailable White, Susan L Admitting Unavailable White, Susan L Consulting Unavailable Puga, Michael Primary Care Unavailable Jonny Vicente Attending Unavailable Puga, Michael Primary Care Unavailable Anabel Horne Attending Unavailabl Anabel Santiago Referring Unavailabl Anabel Santiago Referring Unavailabl e Virgil Her Attending Unavailable Puga, Michael Primary Care Unavailable Puga, Michael Primary Care Unavailable Edelmira, Elkader Referring Unavailable Edelmira, Elkader Attending Unavailable Puga, Michael Primary Care Unavailable Anabel Horne Referring Unavailabl e Russel Baum Attending Unavailable Puga, Michael Referring Unavailable Puga, Michael Primary Care Unavailable Anabel Horne Attending Unavailabl e Puga, Michael Primary Care Unavailable Edelmira, Gallo Referring Unavailable Edelmira, Gallo Attending Unavailable Puga, Michael Referring Unavailable Puga, Michael Primary Care Unavailable Anabel Horne Attending Unavailabl Anabel Santiago Referring Unavailabl e Anabel Horne Attending Unavailabl e Puga, Michael Primary Care Unavailable Puga, Michael Primary Care Unavailable Anabel Horne Referring Unavailabl Anabel Santiago Attending Unavailabl e Owen Alcala V Consulting Unavailable Puga, Michael Attending Unavailable Puga, Michael Referring Unavailable Puga, Michael Primary Care Unavailable Key Portillo Attending Unavailabl e Puga, Michael Primary Care Unavailable White, Susan L Consulting Unavailable White, Susan L Admitting Unavailable Puga, Michael Primary Care Unavailable Jonny Vicente Attending Unavailable Jonny Vicente Consulting Unavailable White, Susan L Attending Unavailable Puga, Michael Primary Care Unavailable Edelmira, Elkader Referring Unavailable Edelmira, Gallo Attending Unavailable Puga, Michael Primary Care Unavailable Kristal Watkins NP Attending Unavailable Puga, Michael Primary Care Unavailable Edelmira, Elkader Attending Unavailable Anabel Horne Referring Unavailabl Anabel Santiago Attending Unavailabl e Puga, Michael Primary Care Unavailable Puga, Michael Primary Care Unavailable Edelmira, Gallo Referring Unavailable Edelmira, Gallo Attending Unavailable Puga, Michael Primary Care Unavailable Edelmira, Elkader Referring Unavailable Edelmira, Gallo Attending Unavailable Puga, Michael Referring Unavailable Puga, Michael Primary Care Unavailable Anabel Horne Attending Unavailabl e Puga, Michael Primary Care Unavailable Edelmira, Gallo Referring Unavailable Edelmira, Elkader Attending Unavailable Puga, Michael Primary Care Unavailable Edelmira, Gallo Referring Unavailable Edelmira, Elkader Attending Unavailable Edelmira, Gallo Attending Unavailable Puga, Michael Primary Care Unavailable Puga, Michael Primary Care Unavailable Anabel Horne Referring Unavailabl Anabel Santiago Attending Unavailabl e Allergies Allergy Classification Reported Allergen(s) Allergy Type Date of Onset Reaction(s) Facility Acetaminophen / HYDROcodone (1 source) Acetaminophen / HYDROcodone Drug Allergy 5 Intolerance [facility] HMG-CoA Reductase Inhibitors (statins) (1 source) Pravastatin Drug Allergy 6 Other: See Comments [facility] Work Phone: Macrolides (antibiotic) (1 source) Azithromycin Drug Allergy 8 Intolerance [facility] Opioid Agonists (1 source) Meperidine Drug Allergy 1 Vomiting [facility] Penicillins (antibiotic) (1 source) Penicillin G Drug Allergy 1 [facility] Quinolones (antibiotic) (1 source) Ciprofloxacin Drug Allergy 9 Rash [facility] Sulfonamides (antibiotic) (1 source) Sulfonamides (Antibiotic) Drug Allergy 1 [facility] (6 sources) acetaminophen / HYDROcodone drug allergy 1 Nausea & vomiting [facility] Work Phone: (6 sources) Adrenergic Beta-Antagonists drug allergy 5 Fatigue [facility] Work Phone: (15 sources) lisinopril; Translations: [lisinopril] drug allergy 6 cough [facility] Work Phone: (7 sources) meperidine drug allergy 1 Nausea & Vomiting, Unknown [facility] Work Phone: (7 sources) penicillin drug allergy 1 Hives, Unknown [facility] Work Phone: (6 sources) Sulfonamides (Antibiotic) drug allergy 1 Hives [facility] Work Phone: [phone] (1 source) guaiFENesin / HYDROcodone Drug Allergy Unknown [facility] (1 source) Sulfonamides (Antibiotic) Unknown [facility] (20 sources) Acetaminophen / HYDROcodone; Translations: [HYDROCODONE-ACET AMINOPHEN] Drug Allergy 5 Intolerance [facility] Work Phone: (20 sources) Azithromycin; Translations: [AZITHROMYCIN] Drug Allergy 8 Intolerance [facility] Work Phone: [phone] (20 sources) Meperidine; Translations: [MEPERIDINE (PF)] Drug Allergy 1 Vomiting [facility] (20 sources) Morphinan opioid; Translations: [OPIOIDS - MORPHINE ANALOGUES] Propensity to adverse reactions to drug 1 Intolerance [facility] (20 sources) Penicillin G; Translations: [PENICILLIN G] Drug Allergy 1 [facility] (20 sources) Pethidine analog; Translations: [OPIOIDS-MEPERIDI NE AND RELATED] Propensity to adverse reactions 1 [facility] (20 sources) Pravastatin; Translations: [PRAVASTATIN SODIUM] Drug Allergy 6 Other: See Comments [facility] Work Phone: (20 sources) Sulfonamides (Antibiotic); Translations: [SULFA (SULFONAMIDE ANTIBIOTICS)] Propensity to adverse reactions 1 [facility] (20 sources) Ciprofloxacin; Translations: [CIPROFLOXACIN] Drug Allergy 9 Rash [facility] (8 sources) HYDROcodone Drug Allergy 2 Other [facility] (8 sources) Meperidine Drug Allergy 2 Vomiting [facility] (9 sources) Penicillins; Translations: [Penicillins] Allergy to substance 2 [facility] (8 sources) Pravastatin Drug Allergy 2 [facility] Comment on above: LEG CRAMPS (9 sources) Beta-Blockers (Beta-Adrenergic Bloc; Translations: [Beta-Blockers (Beta-Adrenergic Bloc] Propensity to adverse reactions 2 Other [facility] Comment on above: FATIGUE (7 sources) Morphine Drug Allergy 4 [facility] Comment on above: sees things (7 sources) Sulfonamides (Antibiotic) Allergy to substance 4 [facility] (1 source) Ciprofloxacin Drug Allergy 5 [facility] (1 source) HYDROcodone Drug Allergy 5 [facility] (1 source) Meperidine Drug Allergy 5 [facility] (1 source) Morphine Drug Allergy 5 [facility] (1 source) Pravastatin Drug Allergy 5 [facility] (1 source) Sulfonamides (Antibiotic) Drug allergy (disorder) 5 [facility] Medications Current Medications Medication Drug Class(es) Dates Sig (Normalized) Sig (Original) [id number] 200 actuat albuterol 0.09 mg/actuat metered dose inhaler (20 sources) beta2-Adrenergic Agonist Start: 10-02-2023 Albuterol Sulfate (Proair Hfa) 90 mcg/actuation HFA aerosol inhaler Active 2 [facility]MA INHALATION EVERY 6 HOURS as needed for shortness of breath or wheezing 6.7 0 October 02, 2023 12:00am Start: 01-08-2023 End: 03-01-2024 take 2 puff(s) by inhalation every four hours as needed albuterol HFA (PROVENTIL HFA, VENTOLIN HFA) 90 mcg/actuation inhaler Inhale 2 Puffs as instructed every 4 hours as needed. 2 Each 5 03/01/2024 Active Start: 12-21-2020 End: 01-19-2021 take 2 puff(s) by inhalation four times daily as needed for cough albuterol 90 mcg/inh inhalation aerosol ; 2 puff(s) inhaled 4 times a day, As Needed -for cough - for wheezing Dispense with aerochamber. Quantity: 1 Refills: 0 Ordered: 21-Dec-2020 Bernie Barajas Start: 21-Dec-2020 End: 19-Jan-2021 Generic Substitution Allowed Comments: For inhalation only.It is very important that you take or use this exactly as directed. Do not skip doses or discontinue unless directed by your doctor.Obtain medical advice before taking any non-prescription drugs as some may affect the action of this medication.Shake well before use. Comment on above: For inhalation only. It is very important that you take or use this exactly as directed. Do not skip doses or discontinue unless directed by your doctor.Obtain medical advice before taking any non-prescription drugs as some may affect the action of this medication.Shake well before use. Inhale 2 Puffs as in structed every 4 hours as needed. amiodarone hydrochloride 200 mg oral tablet (20 sources) Antiarrhythmic Start: 01-23-20 20 End: 07-21-19 25 take 1 tablet by mouth once daily PACERONE 200 mg tablet Take 200 mg by mouth once daily. 08/26/2020 Active Start: 07-14-2011 End: 07-14-2011 take 1 tablet by mouth once daily AMIODARONE HCL 200 MG TABS One tablet by mouth daily AMIODARONE HCL [id number] Delisa Juárez RN Start: 04-07-2011 AMIODARONE HCL 200 MG TABS 1 tablet twice a day for two weeks then 1 a day AMIODARONE HCL [id number] Gallo Hickey MD Comment on above: Take 200 mg by mouth once daily. aspirin 81 mg delayed release oral tablet (20 sources) Platelet Aggregation Inhibitor, Nonsteroidal Anti-inflammatory Drug Start: 12-27-2018 Aspirin (Adult Low Dose Aspirin) 81 mg tablet,delayed release (DR/EC) Active 81 mg PO daily 3 December 27, 2018 12:00am [facility] Start: 07-16-2016 End: 05-05-2017 take 1 tablet by mouth twice daily at mealtime Aspirin 325 MG tablet Discontinued 325 mg PO TWICE DAILY WITH MEALS 60 0 July 16, 2016 12:00am May 05, 2017 12:19pm Start: 05-13-2016 End: 07-16-2016 take 1 tablet by mouth once daily Aspirin 81 MG Tab.Chew Discontinued 81 mg PO DAILY May 13, 2016 1:00am July 16, 2016 7:34am Start: 05-24-2013 End: 12-04-2018 Aspirin (Adult Low Dose Aspi rin) 81 mg tablet,delayed release (DR/EC) Discontinued 81 mg PO daily May 05, 2017 1:00am December 04, 2018 1:03pm [facility] Start: 05-24-2013 ASPIRIN 81 MG TABS ASPIRIN [id number] Anabel Horne PA-C Start: 05-24-2013 ASPIRIN 81 MG TABS ASPIRIN [id number] Anabel Horne PA-C Start: 04-07-2011 take 1 tablet by arpan th once daily ASPIRIN 325 MG TABS One tablet by mouth daily ASPIRIN [id number] Delisa Juárez RN Comment on above: Take 81 mg by mouth once daily. azelastine hydrochloride 0.5 mg/ml ophthalmic solution (20 sources) Histamine-1 Receptor Antagonist Start: 11-02-2024 Azelastine 0.05 % drops Active 1 NMA OPHTHALMIC TWICE A DAY as needed November 02, 2024 9:45am Start: 04-30-2024 End: 11-02-2024 Azelastine 0.05 % drops Disc ontinued 1 NMA OPHTHALMIC TWICE A DAY April 30, 2024 1:00am November 02, 2024 9:45am Start: 10-17-2022 Azelastine HCl (OPTIVAR) 0.05 % ophthalmic solution 10/17/2022 Active azithromycin 250 mg oral tablet (1 source) Macrolide Antimicrobial Start: 12-21-2020 End: 12-25-2020 azithromycin 250 mg oral tablet ; Take 2 tabs orally once on day 1 then take 1 tab(s) orally once a day on days 2-5 Quantity: 6 Refills: 0 Ordered: 21-Dec-2020 RadhalaquitaCoryBernie Start: 21-Dec-2020 End: 25-Dec-2020 Generic Substitution Allowed Comments: Do not take dairy products, antacids, or iron preparations within one hour of this medication.Finish all this medication unless otherwise directed by prescriber. Comment on above: Do not take dairy pr oducts, antacids, or iron preparations within one hour of this medication.Finish all this medication unless otherwise directed by prescriber. cycloSPORINE 0.5 mg/ml ophthalmic suspension (20 sources) Calcineurin Inhibitor Immunosuppressant Start: 12-24-2022 RESTASIS 0.05 % ophthalmic emulsion 12/24/2022 Active Cyclosporine (Restasis) 0.05 % dropperette (7 sources) Start: 09-27-2023 Cyclosporine ( Restasis) 0.05 % dropperette Active 1 NMA EACH EYE Q12H September 27, 2023 12:00am [facility] Start: 09-27-2023 Cyclosporine ( Restasis) 0.05 % dropperette Active 1 NMA EACH EYE Q12H September 27, 2023 12:00am 24 hr dilTIAZem hydrochloride 240 mg extended release oral capsule (20 sources) Calcium Channel Tenzin Start: 08-10-2013 take 1 capsule by mouth once daily diltiazem CD (CARDIZEM CD) 240 mg 24 hr capsule Indications: Essential hypertension Take 1 capsule by mouth once daily. 0 10/25/2015 Active Start: 08-10-2013 End: 05-15-2024 take 1 capsule by mouth every twenty-four hours at bedtime Diltiazem Hcl 240 mg capsule,extended release 24hr Discontinued 240 mg PO AT BEDTIME 90 3 May 09, 2024 12:45pm May 15, 2024 12:23pm heart Start: 08-10-2013 DILT-XR 240 MG [id number] DILTIAZEM HCL [id number] Kristel Garcia RN Start: 08-10-2013 take 1 tablet by arpan th once daily DILT-XR 240 MG [id number] One tablet by mouth daily DILTIAZEM HCL [id number] Gallo Hickey MD Start: 07-19-2013 take 1 tablet by arpan th twice daily DILT-XR 120 MG [id number] One tablet by mouth twice daily DILTIAZEM HCL [id number] Anabel Horne PA-C Start: 07-19-2013 take 1 tablet by arpan th twice daily DILT-XR 120 MG [id number] One tablet by mouth twice daily DILTIAZEM HCL [id number] Anabel Horne PA-C Start: 05-05-2011 take 1 tablet by arpan th once daily DILT-XR 120 MG [id number] One tablet by mouth daily DILTIAZEM HCL [id number] Gallo Hickey MD Start: 05-05-2011 take 1 tablet by arpan th once daily DILT-XR 120 MG [id number] One tablet by mouth daily DILTIAZEM HCL [id number] Gallo Hickey MD Comment on above: Take 1 capsule by mo [facility] once daily. doxycycline hyclate 100 mg oral tablet (3 sources) Tetracycline-class Drug Start: 4 End: 4 take 1 tablet by mouth twice daily doxycycline (VIBRA-TABS) 100 mg tablet Indications: Rhonchi , Acute bronchitis, unspecified organism Take 1 tablet by mouth two times a day for 14 days. 28 tablet 0 12/01/2023 12/15/2023 Active fluticasone / salmeterol (19 sources) Corticosteroid, beta2-Adrenergic Agonist Start: 5 take 1 puff(s) by mouth twice daily fluticasone-salmetero l (ADVAIR DISKUS) 250-50 mcg/dose inhaler Indications: Obstructive lung disease (HCC) Inhale 1 Puff as instructed two times a day. RINSE AND GARGLE MOUTH WITH WATER AFTER EACH USE. 3 Each 3 06/21/2024 Active Fluticasone Propionate 110 mcg/actuation HFA aerosol inhaler (7 sources) Start: 4 Fluticasone Propionate 110 mcg/actuation HFA aerosol inhaler Active 1 NMA INHALATION Q12April 30, 2024 1:00am furosemide 20 mg oral tablet (20 sources) Loop Diuretic Start: 5 End: 5 take 2 tablets by mouth once daily Furosemide 20 mg tablet Discontinued 40 mg PO daily July 06, 2024 12:30pm July 06, 2024 12:30pm Start: 05-12-2024 End: 02-13-2025 take 1 tablet by mouth once daily furosemide (LASIX) 20 mg tablet Indications: Congestive heart failure, unspecified HF chronicity, unspecified heart failure type (HCC) , Function kidney decreased Take 1 tablet by mouth once daily. 90 tablet 1 08/17/2024 02/13/2025 Active Start: 05-02-2024 End: 06-01-2024 take 1 tablet by mouth once daily Furosemide (Lasix) 40 mg tablet Discontinued 40 mg PO DAILY 30 0 May 02, 2024 1:00am June 01, 2024 2:22pm Start: 09-22-2010 End: 10-27-2011 take 1 tablet by mouth once daily LASIX 40 MG TABS One tablet by mouth daily FUROSEMIDE [id number] Irmasophie Strong gabapentin 100 mg oral capsule (20 sources) Anti-epileptic Agent Start: 11-13-2024 End: 12-14-2024 gabapentin (NEURONTIN) 100 mg capsule take 100 mg in the evening daily x 1 week then increase to 200 mg in the evening daily x 1 week then can increase to 300 mg in the evening daily 60 capsule 2 11/13/2024 12/14/2024 Active Start: 05-06-2017 End: 06-10-2017 take 1 capsule by mouth three times daily at mealtime Gabapentin 300 MG capsule Discontinued 300 mg PO 3 TIMES DAILY WITH MEALS May 06, 2017 1:00am June 10, 2017 12:16pm PA[facility] Start: 05-25-2014 End: 05-28-2015 take 1 tablet by mouth three times daily GABAPENTIN 300 MG CAPS One tablet by mouth three times daily GABAPENTIN [id number] Gallo Hickey MD hydrALAZINE hydrochloride 50 mg oral tablet (20 sources) Arteriolar Vasodilator Start: 06-01-2024 take 1 tablet by mouth twice daily Hydralazine 50 mg tablet Active 50 mg PO TWICE A DAY 180 3 June 01, 2024 3:01pm Start: 06-01-2024 End: 06-01-2024 take 1 tablet by mouth twice daily Hydralazine 25 mg tablet Discontinued 25 mg PO TWICE A DAY June 01, 2024 2:53pm June 01, 2024 3:02pm Start: 04-30-2024 End: 06-01-2024 take 1 tablet by mouth once daily Hydralazine 25 mg tablet Discontinued 25 mg PO DAILY April 30, 2024 1:00am June 01, 2024 2:54pm Start: 02-07-2024 End: 04-30-2024 take 1 tablet by mouth twice daily Hydralazine 25 mg tablet Discontinued 25 mg PO TWICE A DAY 60 February 07, 2024 12:00am April 30, 2024 7:37am take 2 tablets by mo ut twice daily in the morning, then take 9 tablets by mouth in the evening hydrALAZINE (APRESOLINE) 25 mg tablet Take 50 mg by mouth two times a day at 6 am and 9 pm. Active isopropyl alcohol 0.7 ml/ml medicated pad (14 sources) Start: 08-30-2024 alcohol swabs Indications: Hypoglycemia Use with blood glucose test 2 times daily. Insulin Dep? No 200 each 5 08/30/2024 Active levothyroxine sodium 0.05 mg oral tablet (20 sources) l-Thyroxi ne Start: 01-25-2024 take 1 capsule by mouth once daily Levothyroxine 50 mcg capsule Active 50 ug PO daily January 25, 2024 12:00am Start: 12-01-2023 End: 06-21-2024 take 1 tablet by mouth once daily before breakfast for thyroid dysfunction levothyroxine (SYNTHROID) 50 mcg tablet Indications: Thyroid disease Take 1 tablet by mouth daily before breakfast. In the morning, Take on empty stomach at least 30 min before eating. For thyroid. 90 tablet 1 06/21/2024 Active Start: 04-05-2023 End: 12-01-2023 take 1 tablet by mouth once daily in the morning for thyroid dysfunction levothyroxine (SYNTHROID) 25 mcg tablet Indications: Thyroid disease Take 1 tablet by mouth once daily. In the morning, Take on empty stomach at least 30 min before eating. For thyroid. 90 tablet 1 04/05/2023 12/01/2023 Discontinued Comment on above: Take 1 tablet by arpan th once daily. In the morning, Take on empty stomach at least 30 min before eating. For thyroid. LORazepam 0.5 mg oral tablet (20 sources) Benzodiazepine Start: 7 End: 6 take 1 tablet by mouth twice daily as needed for anxiety LORazepam (ATIVAN) 0.5 mg Indications: Anxiety TAKE 1 TABLET BY MOUTH TWICE DAILY NEEDED FOR ANXIETY ATTACK 30 tablet 1 11/13/2024 12/13/2024 Active Comment on above: Take 1 tablet by arpan th twice daily as needed (anxiety attack). meloxicam 15 mg oral tablet (20 sources) Nonsteroidal Anti-inflammatory Drug Start: 4 End: 5 take 1 tablet by mouth once daily at mealtime meloxicam (MOBIC) 15 mg tablet Indications: Arthritis, multiple joint involvement Take 1 tablet by mouth once daily. Take with food. 90 tablet 1 09/11/2024 Active Start: 08-31-2018 End: 12-04-2018 Meloxicam 15 mg tablet Disco ntinued 15 mg PO NEEDED as needed for Pain August 31, 2018 12:00am December 04, 2018 10:32am Nebulizer Accessories kit (19 sources) Start: 06-21-2024 Nebulizer Accessories kit Indications: Obstructive lung disease (HCC) , Pulmonary hypertension (HCC) , WELCH (dyspnea on exertion) 1 Kit as directed. 1 Kit 1 06/21/2024 Active nitrofurantoin, macrocrystals 25 mg / nitrofurantoin, monohydrate 75 mg oral capsule (1 source) Nitrofuran Antibacterial Start: 10-20-2021 End: 10-25-2021 take 1 capsule by mouth twice daily nitrofurantoin monohydrate and macrocrystal (MACROBID) 100 mg capsule Take 1 capsule by mouth twice daily for 5 days. 10 capsule 0 10/20/2021 10/25/2021 Active Comment on above: Take 1 capsule by mo ut twice daily for 5 days. omeprazole 20 mg delayed release oral capsule (20 sources) Proton Pump Inhibitor Start: 11-02-2024 take 1 capsule by mouth once daily Omeprazole 20 mg capsule,delayed release(DR/EC) Active 20 mg PO daily November 02, 2024 12:00am Start: 04-10-2024 End: 07-09-2024 take 1 tablet by mouth once daily Omeprazole Magnesium (PRILOSEC OTC) 20 mg tablet Take 1 tablet by mouth once daily. 90 tablet 04/10/2024 Active Start: 11-25-2021 End: 09-27-2023 take 1 capsule by mouth once daily Omeprazole 20 mg capsule,delayed release(DR/EC) Discontinued 20 mg PO DAILY November 25, 2021 12:00am September 27, 2023 10:47pm Start: 10-29-2020 take 1 capsule by [facility] once daily omeprazole (PRILOSEC) 20 mg capsule Take 1 capsule by mouth once daily. 30 capsule 11 10/29/2020 Active Start: 08-27-2017 End: 08-31-2018 take 1 capsule by mouth once daily Omeprazole 40 mg capsule,delayed release(DR/EC) Discontinued 40 mg PO daily August 27, 2017 12:00am August 31, 2018 1:24pm Start: 08-27-2017 End: 08-06-2020 take 1 tablet by mouth twice daily Omeprazole 20 mg tablet,delayed release (DR/EC) Discontinued 20 mg PO TWICE A DAY August 27, 2017 12:00am August 06, 2020 2:28pm Start: 07-19-2013 End: 05-28-2015 take 1 tablet by mouth once daily PRILOSEC 20 MG CPDR One tablet by mouth daily OMEPRAZOLE [id number] Gallo Hickey MD Start: 07-19-2013 End: 05-28-2015 take 1 tablet by mouth once daily PRILOSEC 20 MG CPDR One tablet by mouth daily OMEPRAZOLE [id number] JAMAL KatzC Comment on above: Take 1 capsule by [facility] once daily. PARoxetine hydrochloride 40 mg oral tablet (20 sources) Serotonin Reuptake Inhibitor Start: End: take 1 tablet by mouth once daily PARoxetine (PAXIL) 40 mg tablet Indications: Anxiety , Dysthymia Take 1 tablet by mouth once daily. 90 tablet 1 08/17/2024 02/13/2025 Active Start: 08-17-2024 End: 08-17-2024 take 1 tablet by mouth once daily PARoxetine (PAXIL) 30 mg tablet Indications: Anxiety , Dysthymia Take 1 tablet by mouth once daily. 30 tablet 2 08/17/2024 08/17/2024 Discontinued Start: 12-03-2022 End: 11-02-2024 take 1 tablet by mouth at bedtime Paroxetine Hcl 20 mg tablet Discontinued 20 mg PO AT BEDTIME December 03, 2022 12:00am November 02, 2024 9:42am mental health Start: 12-16-2021 End: 06-29-2022 take 1 tablet by mouth once daily in the evening PARoxetine (PAXIL) 20 mg tablet Indications: Situational insomnia , Situational mixed anxiety and depressive disorder Take 1 tablet by mouth once daily. In the evening 90 tablet 1 06/29/2022 Active Comment on above: Take 1 tablet by arpan th once daily. In the evening perflutren lipid microspheres 1.3 mL in NaCl (PF) 0.9% 10 mL injection (DEFINITY) (14 sources) Start: 06-04-19 End: 09-04-19 24 perflutren lipid microspheres 1.3 mL in NaCl (PF) 0.9% 10 mL injection (DEFINITY) rOPINIRole 1 mg oral tablet (20 sources) Nonergot Dopamine Agonist Start: 05-11-19 25 End: 09-30-19 25 take 1 tablet by mouth once daily at bedtime rOPINIRole (REQUIP) 1 mg tablet Indications: Restless leg Take 1 tablet by mouth daily at bedtime. 30 tablet 3 08/30/2024 Active rosuvastatin calcium 10 mg oral tablet (20 sources) HMG-CoA Reductase Inhibitor Start: 01-23-20 20 End: 11-28-19 25 take 1 tablet by mouth once daily at bedtime rosuvastatin (CRESTOR) 10 mg tablet Indications: TIA (transient ischemic attack) , Hyperlipidemia, unspecified hyperlipidemia type Take 1 tablet by mouth daily at bedtime. 90 tablet 3 11/27/2024 Active Comment on above: Take 1 tablet by arpan th daily at bedtime. 125 ml sodium chloride 9 mg/ml prefilled syringe (14 sources) Start: 06-04-19 End: 09-04-19 sodium chloride 0.9 % (flush) 10 mL (BD POSIFLUSH) spironolactone 25 mg oral tablet (20 sources) Aldosterone Antagonist Start: 01-25-20 take 1 tablet by mouth once daily Spironolactone 25 mg tablet Active 25 mg PO DAILY 30 January 25, 2024 12:00am sucralfate 100 mg/ml oral suspension (20 sources) Aluminum Complex Start: 04-12-20 take 10 mL by mouth four times daily sucralfate (CARAFATE) 100 mg/mL suspension Take 10 mL by mouth four times daily. 414 mL 2 04/12/2024 Active Start: 11-25-2021 take 1 mL by mouth t hree times daily as needed Sucralfate 100 mg/mL suspension Active 10 mL PO THREE TIMES A DAY as needed for digestion November 25, 2021 12:00am Start: 08-08-2021 take 10 mL by mouth four times daily sucralfate (CARAFATE) 100 mg/mL suspension Take 10 mL by mouth four times daily. 414 mL 2 08/08/2021 Active Start: 08-27-2017 End: 09-10-2017 take 1 tablet by mouth three times daily Sucralfate (Carafate) 1 gram tablet Discontinued 1 g PO THREE TIMES A DAY 42 14 0 August 27, 2017 12:00am September 09, 2017 12:00am September 10, 2017 12:07am Comment on above: Take 10 mL by mouth four times daily. ubidecarenone 100 mg oral capsule (8 sources) Start: 01-23-2020 Coenzyme Q10 (Co Q-10) 100 mg capsule Active 100 mg PO DAILY January 23, 2020 12:00am supplement ubidecarenone (COQ-10 ORAL) (20 sources) ubidecarenone (C OQ-10 ORAL) Take by mouth. Active ubidecarenone (C OQ-10 ORAL) Take by mouth. 0 Active Comment on above: Take by mouth. Vitamin B Complex (Balanced B-50) tablet (7 sources) Start: 04-30-2024 Vitamin B Comp chai (Balanced B-50) tablet Active 1 {tbl} PO DAILY April 30, 2024 1:00am Completed/Discontinued Medications Medication Drug Class(es) Dates Sig (Normalized) Sig (Original) acetaminophen 325 mg / HYDROcodone bitartrate 5 mg oral tablet (18 sources) Opioid Agonist Start: 05-25-2014 End: 05-28-2015 take 2 tablets by mouth every four to six hours as needed HYDROCODONE-ACETAMI NOPHEN 5-325 MG TABS Two tablets by mouth every 4 to 6 hours as needed HYDROCODONE-ACETAMI NOPHEN [id number] Gallo Hickey MD amLODIPine 10 mg oral tablet (18 sources) Dihydropyridine Calcium Channel Tenzin Start: 05-28-2015 End: 08-28-2016 take 1 tablet by mouth once daily NORVASC 10 MG TABS One tablet by mouth daily AMLODIPINE BESYLATE [id number] Gallo Hickey MD apixaban 5 mg oral tablet (8 sources) Factor Xa Inhibitor Start: 12-04-2018 End: 12-27-2018 take 1 tablet by mouth twice daily Apixaban 5 MG tablet Discontinued 5 mg PO TWICE A DAY 60 0 December 04, 2018 12:00am December 27, 2018 3:49pm cholecalciferol 0.05 mg oral capsule (20 sources) Vitamin D Start: 06-02-2021 End: 11-02-2024 take 1 capsule by mouth once daily Cholecalciferol (Vitamin D3) 50 mcg (2,000 unit) capsule Discontinued 50 ug PO DAILY June 02, 2021 1:00am November 02, 2024 9:45am vitamin Start: 10-30-2020 End: 03-13-2024 take 1 capsule by mouth once daily Cholecalciferol, Vitamin D3, 50 mcg (2,000 unit) cap Indications: Low vitamin D level Take 1 capsule by mouth once daily. 90 capsule 3 10/30/2020 03/13/2024 Discontinued (Discontinued by Patient) Start: 12-24-2018 End: 12-27-2018 take 1 capsule by mouth once daily Cholecalciferol (Vitamin D3) 1,000 UNIT capsule Discontinued 1000 U PO DAILY December 24, 2018 12:00am December 27, 2018 3:35pm Comment on above: Take 1 capsule by [facility] once daily. citalopram 20 mg oral tablet (6 sources) Serotonin Reuptake Inhibitor Start: 09-23-19 11 take 1 tablet by mouth once daily CELEXA 20 MG TABS One tablet by mouth daily CITALOPRAM HYDROBROMIDE [id number] Irma Strong clindamycin 300 mg oral capsule (12 sources) Lincosamide Antibacterial Start: 09-23-19 11 End: 05-18-19 13 CLINDAMYCIN HCL 300 MG CAPS 2 tablets by mouth 30-60 mins prior to procedure CLINDAMYCIN HCL [id number] Irma Strong enalapril maleate 20 mg oral tablet (12 sources) Angiotensin Converting Enzyme Inhibitor Start: 09-23-19 11 End: 05-05-19 12 ENALAPRIL MALEATE 20 MG TABS 1/2 tablet daily ENALAPRIL MALEATE [id number] Gallo Hickey MD escitalopram 20 mg oral tablet (20 sources) Serotonin Reuptake Inhibitor Start: 08-17-19 14 End: 09-27-19 24 take 1 tablet by mouth once daily Escitalopram Oxalate 20 MG tablet Discontinued 20 mg PO DAILY May 13, 2016 1:00am August 27, 2017 7:58am MENTAL HEALTH Start: 05-24-2013 take 1 tablet by arpan once daily ESCITALOPRAM OXALATE 10 MG TABS One tablet by mouth daily ESCITALOPRAM OXALATE [id number] JAMAL KatzC Comment on above: Take 1 tablet by arpan once daily. ferrous sulfate 325 mg oral tablet (20 sources) Start: 12-03-2022 End: 09-27-2023 take 1 tablet by mouth twice daily Ferrous Sulfate (Iron (Ferrous Sulfate)) 325 mg (65 mg iron) tablet Discontinued 325 mg PO TWICE A DAY December 03, 2022 12:00am September 27, 2023 10:46pm End: 12-01-2023 ferrous sulfate (SLOW FE ORA L) Take by mouth twice daily. 0 12/01/2023 Discontinued ferrous sulfate (SLOW FE ORAL) Take by mouth twice daily. 0 Active Comment on above: Take by mouth twice daily. flecainide acetate 150 mg oral tablet (20 sources) Antiarrhythmic Start: 2 End: take 1 tablet by mouth twice daily Flecainide 150 mg tablet Discontinued 150 mg PO TWICE A DAY 180 3 August 07, 2019 9:20am January 23, 2020 3:14pm HEART Start: 07-14-2011 take 1 tablet by arpan th twice daily FLECAINIDE ACETATE 100 MG TABS One tablet by mouth twice daily FLECAINIDE ACETATE [id number] Gallo Hickey MD 120 actuat fluticasone propionate 0.11 mg/actuat metered dose inhaler (20 sources) Corticosteroid Start: 03-01-2024 End: 06-21-2024 take 1 puff(s) by mouth twice daily fluticasone (FLOVENT) 110 mcg/actuation inhaler Indications: Obstructive lung disease (HCC) Inhale 1 Puff as instructed two times a day. Shake well before use. Rinse mouth after use. 1 Each 1 03/01/2024 06/21/2024 Discontinued 12 hr guaiFENesin 600 mg extended release oral tablet (20 sources) Start: 10-06-2023 End: 08-17-2024 take 1 tablet by mouth twice daily as needed for congestion, then take 1 tablet by mouth every twelve hours as needed for congestion Guaifenesin (Mucus Relief Er) 600 mg tablet extended release 12hr Discontinued 600 mg PO TWICE A DAY as needed for congestion April 30, 2024 1:00am June 01, 2024 2:22pm hydroCHLOROthiazide 12.5 mg oral capsule (20 sources) Thiazide Diuretic Start: 04-30-2024 End: 08-23-2024 take 1 capsule by mouth once daily Hydrochlorothiazide 12.5 mg capsule Discontinued 12.5 mg PO DAILY April 30, 2024 1:00am June 01, 2024 3:01pm Start: 06-04-2022 End: 03-13-2024 take 2 capsules by mouth once daily hydroCHLOROthiazide (HYDRODIURIL, ESIDRIX) 12.5 mg capsule Indications: Fatigue, unspecified type , SOB (shortness of breath) on exertion , Bilateral leg edema Take 2 capsules by mouth once daily. 30 capsule 12 06/04/2022 03/13/2024 Discontinued (Discontinued by Patient) Start: 06-04-2022 End: 06-04-2022 take 1 capsule by mouth once daily hydroCHLOROthiazide (HYDRODIURIL, ESIDRIX) 12.5 mg capsule Take 1 capsule by mouth once daily. 30 capsule 12 06/04/2022 06/04/2022 Discontinued Start: 11-25-2021 End: 01-25-2024 Hydrochlorothiazide 25 mg ta blet Discontinued 12.5 mg PO TWICE A DAY November 25, 2021 2:52pm January 25, 2024 1:24pm diuretic Start: 06-13-2021 End: 11-25-2021 take 1 tablet by mouth once daily Hydrochlorothiazide 25 mg tablet Discontinued 25 mg PO DAILY 30 June 13, 2021 1:00am November 25, 2021 2:54pm Comment on above: Take 2 capsules by m outh once daily. Take 1 capsule by mo uth once daily. ibuprofen 800 mg oral tablet (18 sources) Nonsteroidal Anti-inflammatory Drug Start: 1 End: 6 take 1 tablet by mouth every four hours as needed IBUPROFEN 800 MG TABS 1 tablet by mouth Q4H as needed IBUPROFEN [id number] Anabel Horne PA-C lisinopril 10 mg oral tablet (6 sources) Angiotensin Converting Enzyme Inhibitor Start: 5 take 1 tablet by mouth once daily LISINOPRIL 10 MG TABS One tablet by mouth daily LISINOPRIL [id number] Anabel Horne PA-C losartan potassium 100 mg oral tablet (20 sources) Angiotensin 2 Receptor Tenzin Start: 6 End: 5 take 1 tablet by mouth once daily Losartan 100 mg tablet Discontinued 100 mg PO DAILY 90 3 July 31, 2024 8:43am September 11, 2024 10:11am blood pressure Start: 04-04-2015 take 1 tablet by arpan th once daily LOSARTAN POTASSIUM 50 MG TABS One tablet by mouth daily LOSARTAN POTASSIUM [id number] Anabel Horne PA-C Start: 04-04-2015 End: 06-26-2015 take 1 tablet by mouth twice daily LOSARTAN POTASSIUM 50 MG TABS One tablet by mouth twice daily LOSARTAN POTASSIUM [id number] Kristel M Kilner, RN Comment on above: Take 1 tablet by arpan th once daily. metFORMIN hydrochloride 500 mg oral tablet (10 sources) Biguanide Start: End: take 1 tablet by mouth once daily at breakfast metFORMIN (GLUCOPHAGE) 500 mg tablet Indications: IFG (impaired fasting glucose) , Obesity, Class II, BMI 35-39.9 Take 1 tablet by mouth daily with breakfast. 90 tablet 3 02/16/2022 06/22/2022 Discontinued Comment on above: Take 1 tablet by arpan th daily with breakfast. metroNIDAZOLE 500 mg oral tablet (8 sources) Nitroimidazole Antimicrobial Start: End: take 1 tablet by mouth every eight hours Metronidazole 500 MG tablet Discontinued 500 mg PO Q8H 30 May 08, 2017 1:00am June 10, 2017 12:16pm Colitis Noninfective gastroenteritis and colitis, unspecified mirtazapine 15 mg oral tablet (8 sources) Start: End: take 1 tablet by mouth once daily at bedtime mirtazapine (REMERON) 15 mg tablet Take 1 tablet by mouth daily at bedtime. For insomnia 30 tablet 1 2022 06/22/2022 Discontinued Comment on above: Take 1 tablet by arpan th daily at bedtime. For insomnia MULTIPLE VITAMIN (10 sources) Start: take 1 tablet by mouth once daily MULTIVITAMINS TABS One tablet by mouth daily MULTIPLE VITAMIN [id number] Gallo Hickey MD Start: 05-18-2012 End: 05-24-2013 take 1 tablet by mouth once daily MULTIVITAMINS TABS One tablet by mouth daily MULTIPLE VITAMIN [id number] JAMAL KatzC MULTIPLE VITAMIN (2 sources) Start: 05-18-2012 take 1 tablet by mouth once daily MULTIVITAMINS TABS One tablet by mouth daily MULTIPLE VITAMIN [id number] Gallo Hickey MD Start: 05-18-2012 End: 05-24-2013 take 1 tablet by mouth once daily MULTIVITAMINS TABS One tablet by mouth daily MULTIPLE VITAMIN [id number] Anabel Horne PA-C nystatin 100 unt/mg topical powder (8 sources) Polyene Antifungal Start: 05-08-2017 End: 06-10-2017 Nystatin Discontinued 1 APPLIC TOPICAL THREE TIMES A DAY May 08, 2017 10:54am June 10, 2017 12:16pm Start: 05-08-2017 End: 06-10-2017 Nystatin 1 APPLIC bottle Dis continued 1 NMA TOPICAL THREE TIMES A DAY 1 May 08, 2017 1:00am June 10, 2017 12:16pm Candidiasis Candidiasis, unspecified Please contact the information source for Protocol details. OMEGA-3 FATTY ACIDS CPDR (10 sources) Start: 09-22-2010 take 1 tablet by mouth once daily OMEGA 3 CPDR One tablet by mouth daily OMEGA-3 FATTY ACIDS CPDR [id number] Irma Strong Start: 09-22-2010 End: 05-18-2012 take 1 tablet by mouth once daily OMEGA 3 CPDR One tablet by mouth daily OMEGA-3 FATTY ACIDS CPDR [id number] Gallo Hickey MD OMEGA-3 FATTY ACIDS CPDR (2 sources) Start: 09-22-2010 take 1 tablet by mouth once daily OMEGA 3 CPDR One tablet by mouth daily OMEGA-3 FATTY ACIDS CPDR [id number] Irma Strong Start: 09-22-2010 End: 05-18-2012 take 1 tablet by mouth once daily OMEGA 3 CPDR One tablet by mouth daily OMEGA-3 FATTY ACIDS CPDR [id number] Gallo Hickey MD polyethylene glycol 3350 04184 mg powder for oral solution (8 sources) Osmotic Laxative Start: 05-08-2017 End: 06-10-2017 take 17 g by mouth once daily Polyethylene Glycol 3350 17 GM packet Discontinued 17 g PO DAILY 30 0 May 08, 2017 1:00am June 10, 2017 12:17pm Constipation Constipation, unspecified predniSONE 10 mg oral tablet (13 sources) Start: 11-02-2024 End: 11-02-2024 take 1 tablet by mouth once daily in the morning Prednisone 10 mg tablet Discontinued 10 mg PO EVERY MORNING November 02, 2024 12:00am November 02, 2024 10:00am Start: 10-02-2023 End: 04-30-2024 take 4 tablets by mouth once daily, then take 3 tablets by mouth once daily, then take 2 tablets by mouth once daily, then take 1 tablet by mouth once daily, then take 0.5 tablet by mouth once daily Prednisone 10 mg tablet Discontinued 10 mg PO DAILY 32 0 October 02, 2023 12:00am April 30, 2024 7:37am Take 4 tablets daily for 3 days then 3 tablets daily for 3 days then 2 tablets daily for 3 days then 1 tablet daily for 3 days then half tablet daily for 4 days Start: 12-21-2020 End: 12-25-2020 take 2 tablets by mouth once daily at mealtime predniSONE 20 mg oral tablet ; 2 tab(s) orally once a day x 5 days Quantity: 10 Refills: 0 Ordered: 21-Dec-2020 AryanCory maeine Start: 21-Dec-2020 End: 25-Dec-2020 Generic Substitution Allowed Comments: It is very important that you take or use this exactly as directed. Do not skip doses or discontinue unless directed by your doctor.Obtain medical advice before taking any non-prescription drugs as some may affect the action of this medication.Take with food or milk. Comment on above: It is very important that you take or use this exactly as directed. Do not skip doses or discontinue unless directed by your doctor.Obtain medical advice before taking any non-prescription drugs as some may affect the action of this medication.Take with food or milk. topiramate 25 mg oral tablet (9 sources) Start: 09-22-19 End: 09-27-19 24 take 1 tablet by mouth once daily Topiramate 25 mg tablet Discontinued 25 mg PO DAILY December 03, 2022 12:00am September 27, 2023 10:48pm Comment on above: Take 1 tablet by arpan th daily with breakfast. traZODone hydrochloride 100 mg oral tablet (19 sources) Serotonin Reuptake Inhibitor Start: 01-25-20 End: 04-30-20 24 take 1 tablet by mouth once daily Trazodone 100 mg tablet Discontinued 100 mg PO daily January 25, 2024 12:00am April 30, 2024 7:36am Start: 10-19-2023 End: 01-17-2024 take 1 tablet by mouth once daily at bedtime traZODone (DESYREL) 100 mg tablet Indications: Sleep disturbances Take 1 tablet by mouth daily at bedtime. 30 tablet 2 10/19/2023 01/17/2024 Active Start: 10-14-2023 End: 01-12-2024 take 1 tablet by mouth once daily at bedtime traZODone (DESYREL) 50 mg tablet Indications: Sleep disturbances Take 1 tablet by mouth daily at bedtime. 30 tablet 2 10/14/2023 10/19/2023 Discontinued vit A/vit C/vit E/zinc/copper (PRESERVISION AREDS ORAL) (3 sources) vit A/vit C/vit E/zinc/copper (PRESERVISION AREDS ORAL) Take by mouth. 0 Active Comment on above: Take by mouth. vitamin b12 1 mg oral capsule (20 sources) Vitamin B12 Start: 9 End: 9 take 1 capsule by mouth once daily Cyanocobalamin (Vitamin B-12) 1,000 MCG capsule Discontinued 1000 ug PO DAILY December 24, 2018 12:00am December 27, 2018 3:35pm Start: 07-14-2011 take 5000 mg by mout h once daily VITAMIN B-12 1000 MCG TABS 5000 mg, One tablet by mouth daily CYANOCOBALAMIN [id number] Delisa Juárez RN take 1 tablet by arpan th once daily cyanocobalamin (VITAMIN B-12) 1,000 mcg tab Take 1,000 mcg by mouth once daily. Active B COMPLEX VITAMINS (20 sources) Start: 09-22-2010 take 1 tablet by mouth once daily VITAMIN B COMPLEX TABS One tablet by mouth daily B COMPLEX VITAMINS [id number] Irma Strong End: 03-13-2024 vitamin B complex (B COMPLEX 1 ORAL) Take by mouth. 03/13/2024 Discontinued (Discontinued by Patient) vitamin B comple x (B COMPLEX 1 ORAL) Take by mouth. Active vitamin B comple x (B COMPLEX 1 ORAL) Take by mouth. 0 Active Comment on above: Take by mouth. zolpidem tartrate 5 mg oral tablet (5 sources) gamma-Aminobutyric Acid-ergic Agonist Start: 04-21-2022 End: 06-04-2022 take 1 tablet by mouth every 30 days at bedtime as needed zolpidem (AMBIEN) 5 mg tablet Indications: Situational insomnia Take 1 tablet by mouth at bedtime as needed for sedation for up to 30 days. 30 tablet 5 04/21/2022 06/04/2022 Discontinued Comment on above: Take 1 tablet by arpan th at bedtime as needed for sedation for up to 30 days. Problems Active Problems Problem Classification Problem Date Documented Da te Episodic/Chronic Acute bronchitis (1 source) Acute bronchitis 12-21-2020 Adjustment disorders (20 sources) Mixed anxiety and depressive disorder; Translations: [Adjustment disorder with mixed anxiety and depressed mood] 01-05-2020 Chronic Anxiety disorders (20 sources) Anxiety; Translations: [Anxiety disorder, unspecified] Onset: 7 11-10-2016 Chronic Cardiac dysrhythmias (20 sources) Permanent atrial fibrillation ; Translations: [Sick sinus syndrome] Onset: 1 Resolved: 5 08-30-2015 Chronic Chronic obstructive pulmonary disease and bronchiectasis (20 sources) Obstruction of lower respiratory tract; Translations: [Chronic obstructive pulmonary disease, unspecified] Onset: 3 12-30-2022 Chronic Conduction disorders (20 sources) Cardiac pacemaker in situ; Translations: [Presence of cardiac pacemaker] Onset: 1 12-07-2012 Chronic Comment on above: 01/29/2011; Gen Juan crowell 06/09/21 Congestive heart failure; nonhypertensive (20 sources) Congestive heart failure; Translations: [Heart failure, unspecified] Onset: 5 05-11-2024 Chronic Disorders of lipid metabolism (20 sources) Hyperlipidemia; Translations: [Hyperlipidemia, unspecified] Onset: 1 Resolved: 6 09-22-2010 Chronic E Codes: Fall (8 sources) Fall on same level from slipping, tripping or stumbling ; Translations: [Fall on same level from slipping, tripping and stumbling without subsequent striking against object, initial encounter] 12-25-2018 Episodic Esophageal disorders (20 sources) Gastro-esophageal reflux disease with esophagitis; Translations: [Gastroesophageal reflux disease with esophagitis without hemorrhage] Onset: 1 Resolved: 1 Chronic Essential hypertension (20 sources) Hypertensive disorder; Translations: [Essential hypertension] Onset: 1 09-22-2010 Chronic Genitourinary symptoms and ill-defined conditions (20 sources) Mixed urinary incontinence; Translations: [Mixed incontinence] Onset: 7 11-10-2016 Chronic Genitourinary symptoms and ill-defined conditions (1 source) Increased frequency of urination; Translations: [Frequency of micturition] Episodic Hypertension with complications and secondary hypertension (1 source) Hypertensive heart and chronic kidney disease with heart failure and stage 1 through stage 4 chronic kidney disease, or unspecified chronic kidney disease; Translations: [Hypertensive heart and chronic kidney disease with heart failure and stage 1 through stage 4 chronic kidney disease, or unspecified chronic kidney disease] Onset: 5 Chronic Malaise and fatigue (20 sources) Fatigue; Translations: [Other fatigue] Onset: 2 06-13-2021 Episodic Melanomas of skin (20 sources) Malignant melanoma of skin of trunk; Translations: [Malignant melanoma of other part of trunk] Onset: 1 Resolved: 2 08-27-2003 Chronic Miscellaneous mental health disorders (20 sources) Insomnia; Translations: [Other insomnia not due to a substance or known physiological condition] Onset: 2 12-22-2021 Chronic Mood disorders (20 sources) Dysthymia; Translations: [Dysthymic disorder] Onset: 2 Chronic Nutritional deficiencies (20 sources) Vitamin D deficiency; Translations: [Vitamin D deficiency, unspecified] Onset: 0 07-12-2019 Chronic Open wounds of extremities (7 sources) Tear of skin; Translations: [Laceration without foreign body of unspecified elbow, initial encounter] 01-03-2022 Episodic Other aftercare (2 sources) Post-discharge follow-up; Translations: [Encounter for follow-up examination after completed treatment for conditions other than malignant neoplasm] 10-14-2023 Episodic Other aftercare (7 sources) Long-term current use of diuretic; Translations: [Encounter for therapeutic drug level monitoring] 06-26-2024 Episodic Other aftercare (4 sources) Drug therapy finding; Translations: [Other assisted (current) drug therapy] 06-01-2024 Episodic Other aftercare (8 sources) Long-term current use of amiodarone; Translations: [Other assisted (current) drug therapy] 06-01-2024 Episodic Other circulatory disease (20 sources) Disorder of carotid artery; Translations: [Disorder of arteries and arterioles, unspecified] Onset: 6 05-28-2015 Chronic Other circulatory disease (1 source) Disorder of arteries and arterioles, unspecified; 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)] Onset: 3 Chronic Other circulatory disease (10 sources) Carotid bruit; Translations: [Other specified symptoms and signs involving the circulatory and respiratory systems] 06-01-2024 Episodic Other connective tissue disease (8 sources) Recurrent falls ; Translations: [Repeated falls] 12-27-2018 Episodic Other endocrine disorders (1 source) Hypoglycemia; Translations: [Hypoglycemia, unspecified] 08-30-2024 Chronic Other endocrine disorders (1 source) Hypoglycemia, unspecified; Translations: [Hypoglycemia] Onset: 5 Chronic Other gastrointestinal disorders (1 source) Diarrhea; Translations: [Diarrhea, unspecified] 10-06-2023 Episodic Other hereditary and degenerative nervous system conditions (2 sources) Restless legs; Translations: [Restless legs syndrome] 05-11-2024 Chronic Other hereditary and degenerative nervous system conditions (1 source) Restless legs syndrome; Translations: [Restless leg] Onset: 5 Chronic Other inflammatory condition of skin (2 sources) Dermatitis herpetiformis; 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 Other injuries and conditions due to external causes (8 sources) Closed injury of head; Translations: [Unspecified injury of head, initial encounter] 12-25-2018 Episodic Other injuries and conditions due to external causes (7 sources) Injury of head; Translations: [Unspecified injury of head, initial encounter] 01-03-2022 Episodic Other lower respiratory disease (16 sources) Dyspnea; Translations: [Shortness of breath] Onset: 1 09-22-2010 Episodic Comment on above: SOB Other lower respiratory disease (9 sources) Hypoxia; Translations: [Hypoxemia] 04-30-2024 Episodic Other lower respiratory disease (1 source) Obstruction of lower respiratory tract 08-18-2024 Episodic Other lower respiratory disease (3 sources) Other forms of dyspnea; Translations: [WELCH (dyspnea on exertion)] Onset: 3 Episodic Other nervous system disorders (20 sources) Difficulty walking; Translations: [Difficulty in walking, not elsewhere classified] Onset: 5 11-15-2023 Chronic Other nervous system disorders (1 source) Difficulty in walking, not elsewhere classified; Translations: [Difficulty walking] Onset: 5 Chronic Other nervous system disorders (20 sources) Impairment of balance; Translations: [Other abnormalities of gait and mobility] Onset: 5 11-15-2023 Episodic Other nervous system disorders (20 sources) Abnormal gait; Translations: [Unspecified abnormalities of gait and mobility] Onset: 5 03-01-2024 Episodic Other non-traumatic joint disorders (20 sources) Arthropathy of multiple joints; Translations: [Arthropathy, unspecified] Onset: 8 03-07-2018 Chronic Other non-traumatic joint disorders (1 source) Arthropathy, unspecified; Translations: [Arthritis, multiple joint involvement] Onset: 8 Chronic Other nutritional; endocrine; and metabolic disorders (16 sources) Body mass index (BMI) 38.0-38.9, adult; Translations: [Body mass index (BMI) 39.0-39.9, adult] Onset: 5 08-30-2015 Chronic Other nutritional; endocrine; and metabolic disorders (1 source) Body mass index (BMI) 39.0-39.9, adult; Translations: [Body mass index (BMI) 39.0-39.9, adult] Onset: 5 04-15-2016 Chronic Other nutritional; endocrine; and metabolic disorders (1 source) Body mass index (BMI) 37.0-37.9, adult; Translations: [Body mass index (BMI) 37.0-37.9, adult] Onset: 5 11-22-2014 Chronic Other nutritional; endocrine; and metabolic disorders (20 sources) Metabolic syndrome X; Translations: [Metabolic syndrome] Onset: 8 07-12-2007 Chronic Other nutritional; endocrine; and metabolic disorders (20 sources) Body mass index 30+ - obesity; Translations: [Body mass index (BMI) 38.0-38.9, adult] Onset: 5 Resolved: 6 08-16-2015 Chronic Other nutritional; endocrine; and metabolic disorders (20 sources) Obese class II; Translations: [Obesity, unspecified] Onset: 7 11-10-2016 Chronic Other nutritional; endocrine; and metabolic disorders (20 sources) Obese class I; Translations: [Obesity, unspecified] Onset: 8 03-07-2018 Chronic Other nutritional; endocrine; and metabolic disorders (7 sources) Obesity; Translations: [Obesity, unspecified] 11-25-2021 Chronic Other screening for suspected conditions (not mental disorders or infectious disease) (14 sources) Electrocardiogram abnormal; Translations: [Abnormal electrocardiogram [ECG] [EKG]] Onset: 1 09-22-2010 Episodic Other upper respiratory disease (20 sources) Allergic rhinitis; Translations: [Allergic rhinitis, unspecified] 01-08-2005 Chronic Pneumonia (except that caused by tuberculosis or sexually transmitted disease) (8 sources) Community acquired pneumonia; Translations: [Pneumonia, unspecified organism] 10-14-2023 Episodic Pulmonary heart disease (20 sources) Pulmonary hypertension; Translations: [Pulmonary hypertension, unspecified] Onset: 4 03-13-2024 Chronic Residual codes; unclassified (20 sources) Obstructive sleep apnea syndrome; Translations: [Obstructive sleep apnea (adult) (pediatric)] Onset: 6 03-09-2016 Chronic Residual codes; unclassified (1 source) Bilateral lower limb edema; Translations: [Localized edema] Episodic Residual codes; unclassified (2 sources) Disturbance in sleep behavior; Translations: [Sleep disorder, unspecified] 10-14-2023 Episodic Respiratory failure; insufficiency; arrest (adult) (18 sources) Dependence on supplemental oxygen; Translations: [Dependence on supplemental oxygen] Onset: 5 10-14-2023 Chronic Sprains and strains (7 sources) Strain of neck muscle; Translations: [Strain of muscle, fascia and tendon at neck level, initial encounter] 01-03-2022 Episodic Superficial injury; contusion (20 sources) Hematoma of scalp; Translations: [Contusion of scalp, initial encounter] 12-25-2018 Episodic Thyroid disorders (20 sources) Subclinical hypothyroidism; Translations: [Other specified hypothyroidism] Onset: 3 04-08-2023 Chronic Transient cerebral ischemia (20 sources) Transient cerebral ischemia; Translations: [Transient cerebral ischemic attack, unspecified] Onset: 9 12-09-2018 Chronic Unclassified (1 source) Physical Therapy Onset: 4 Viral infection (2 sources) Disease caused by 2019-nCoV 12-21-2020 Comment on above: COVID EXP Past or Other Problems Problem Classification Problem Date Documented Date Episodic/Chronic Abdominal pain (5 sources) Epigastric pain; Translations: [Epigastric pain] Onset: 03-01-2024 03-01-2024 Episodic Acute bronchitis (20 sources) Acute bronchitis; Translations: [Acute bronchitis] Onset: 12-01-2023 12-21-2020 Episodic Allergic reactions (20 sources) Radiation-induced dermatosis; Translations: [Other skin changes due to chronic exposure to nonionizing radiation] Onset: 01-20-2007 Resolved: 03-11-2015 01-09-2012 Episodic Coma; stupor; and brain damage (20 sources) Daytime somnolence; Translations: [Somnolence] Onset: 08-16-2015 08-16-2015 Episodic Deficiency and other anemia (20 sources) Iron deficiency anemia; Translations: [Iron deficiency anemia, unspecified] Onset: 06-13-2021 06-13-2021 Episodic Diabetes mellitus without complication (20 sources) Hyperglycemia; Translations: [Impaired fasting glucose] Onset: 11-10-2016 11-10-2016 Episodic Fluid and electrolyte disorders (20 sources) Hypokalemia; Translations: [Hypokalemia] Onset: 05-24-2013 05-24-2013 Episodic Gastritis and duodenitis (20 sources) Gastritis; Translations: [Unspecified gastritis and gastroduodenitis] Onset: 04-10-2024 Resolved: 03-11-2015 03-11-2015 Episodic Immunizations and screening for infectious disease (5 sources) Needs influenza immunization; Translations: [Encounter for immunization] Onset: 03-01-2024 Episodic Melanomas of skin (20 sources) History of malignant melanoma of the skin; Translations: [Personal history of malignant melanoma of skin] Onset: 02-08-2011 02-08-2011 Episodic Nutritional deficiencies (20 sources) Iron deficiency; Translations: [Iron deficiency] Onset: 02-16-2022 Episodic Other aftercare (1 source) Encounter for follow-up examination after completed treatment for conditions other than malignant neoplasm; Translations: [Hospital discharge follow-up] Onset: 05-11-2024 Episodic Other aftercare (1 source) Other lobsterman (current) drug therapy; Translations: [Other lobsterman (current) drug therapy] Onset: 07-06-2024 Episodic Other aftercare (1 source) Encounter for other specified aftercare; Translations: [Encounter for other specified aftercare] Onset: 06-16-2024 Episodic Other and unspecified benign neoplasm (20 sources) Benign neoplasm of skin of trunk; Translations: [Other benign neoplasm of skin of trunk] Onset: 01-20-2007 Resolved: 01-09-2012 01-09-2012 Episodic Other and unspecified benign neoplasm (20 sources) Benign neoplasm of skin of face; Translations: [Other benign neoplasm of skin of unspecified part of face] Onset: 01-20-2007 Resolved: 01-09-2012 01-09-2012 Episodic Other circulatory disease (20 sources) Wheeze - rhonchi; Translations: [Other specified symptoms and signs involving the circulatory and respiratory systems] Onset: 12-01-2023 12-01-2023 Episodic Other circulatory disease (2 sources) Other specified symptoms and signs involving the circulatory and respiratory systems; Translations: [Rhonchi] Onset: 12-01-2023 Episodic Other diseases of kidney and ureters (20 sources) Abnormal renal function; Translations: [Disorder of kidney and ureter, unspecified] Onset: 06-27-2024 05-12-2024 Episodic Other diseases of kidney and ureters (2 sources) Disorder of kidney and ureter, unspecified; Translations: [Function kidney decreased] Onset: 05-31-2024 Episodic Other lower respiratory disease (20 sources) Dyspnea on exertion; Translations: [Shortness of breath] Onset: 06-23-2022 Episodic Other lower respiratory disease (2 sources) Hypoxemia; Translations: [Hypoxemia] Onset: 05-08-2024 Episodic Other nervous system disorders (2 sources) Unspecified abnormalities of gait and mobility; Translations: [Abnormality of gait] Onset: 03-01-2024 Episodic Other nervous system disorders (2 sources) Other abnormalities of gait and mobility; Translations: [Imbalance] Onset: 03-01-2024 Episodic Other skin disorders (20 sources) Actinic keratosis; Translations: [Actinic keratosis] Onset: 01-20-2007 Resolved: 03-11-2015 03-11-2015 Episodic Other skin disorders (20 sources) Scar conditions and fibrosis of skin; Translations: [Scar conditions and fibrosis of skin] Onset: 01-20-2007 Resolved: 03-11-2015 03-11-2015 Episodic Other skin disorders (20 sources) Disorder of skin pigmentation; Translations: [Disorder of pigmentation, unspecified] Onset: 01-20-2007 Resolved: 01-09-2012 01-09-2012 Episodic Other skin disorders (20 sources) Seborrheic keratosis; Translations: [Other seborrheic keratosis] Onset: 01-20-2007 Resolved: 03-11-2015 01-09-2012 Episodic Other skin disorders (20 sources) Disorder of sebaceous gland; Translations: [Follicular disorder, unspecified] Onset: 01-20-2007 Resolved: 01-09-2012 01-09-2012 Episodic Other skin disorders (20 sources) Solar lentigo; Translations: [Other melanin hyperpigmentation] Onset: 01-09-2012 Resolved: 03-11-2015 03-11-2015 Episodic Other skin disorders (20 sources) Scar; Translations: [Scar conditions and fibrosis of skin] Onset: 01-09-2012 Resolved: 03-11-2015 03-11-2015 Episodic Other skin disorders (20 sources) Inflamed seborrheic keratosis; Translations: [Inflamed seborrheic keratosis] Onset: 12-01-2013 Resolved: 03-11-2015 03-11-2015 Episodic Other skin disorders (20 sources) Asteatosis cutis; Translations: [Xerosis cutis] Onset: 12-01-2013 Resolved: 03-11-2015 03-11-2015 Episodic Other skin disorders (20 sources) Skin tag; Translations: [Other hypertrophic disorders of the skin] Onset: 12-01-2013 Resolved: 03-11-2015 03-11-2015 Episodic Residual codes; unclassified (11 sources) Family history of sudden ; Translations: [FH: Hypertension] 11-22-2014 Episodic Residual codes; unclassified (1 source) FH: Hypertension; Translations: [Family history of ischemic heart disease and other diseases of the circulatory system] 11-22-2014 Episodic Spondylosis; intervertebral disc disorders; other back problems (20 sources) Spinal stenosis of lumbar region; Translations: [Spinal stenosis, lumbar region without neurogenic claudication] Onset: 03-07-2018 03-07-2018 Episodic Thyroid disorders (20 sources) Disorder of thyroid gland; Translations: [Disorder of thyroid, unspecified] Onset: 05-11-2024 04-05-2023 Episodic Results Test Name Value Interpretation Reference Range Facility [facility] 11-10-2024 [facility] Telephone (FAMPWS) MICHAEL MEIER ([id number]) 1940 F Date Time Provider Department 11/10/24 MICHAEL PUGA [facility] During your visit today, we recorded the following information about you: Amanda Pratt RN 11/10/2024 2:50 PM Signed Kell with [facility] calls to let provider know that patient continues to have bilateral leg pain and wants to go back on the Gabapentin as she was on before. Gabapentin was not prescribed by PCP. Call placed to patient for further information. Patient reports bilateral lower leg pain and neuropathy. She reports it gets worse once she has been up walking for a while. Reports that she took Gabapentin 300 mg once daily back in 2003 for same symptoms and it was helpful. She would like to try it again. Next OV is 12/08/2024. Patient didn't want to schedule anything sooner. Aware provider is out of office and will respond once able. GLYNN Montiel Jordan L, DO 11/13/2024 6:57 AM Signed Please have her start on gabapentin 100 mg in the evening daily x 1 week then increase to 200 mg in the evening daily x 1 week then can increase to 300 mg in the evening daily. If doing well on this dose, then let me know and I can change rx to 300 mg capsule/tablet Michael Puga DO The following approved medication requests have been transmitted electronically. Requested Prescriptions Signed Prescriptions Disp Refills gabapentin (NEURONTIN) 100 mg capsule 60 capsule 2 Sig: take 100 mg in the evening daily x 1 week then increase to 200 mg in the evening daily x 1 week then can increase to 300 mg in the evening daily Authorizing Provider: MICHAEL PUGA DO McCullough, Krystle, RN 11/13/2024 8:49 AM Signed Call placed to patient and notified of below with verbalized understanding. Amanda Pratt RN Allergies As of Date: 11/10/2024 Noted Allergy Reaction CIPROFLOXACIN 09/05/2018 2 - Rash DEMEROL (MEPERIDINE (PF)) 02/06/2011 11 - Vomiting OPIOIDS - MORPHINE ANALOGUES 03/17/2001 5 - Intolerance Comments: nausea, dizzy, sees things OPIOIDS-MEPERIDINE AND RELATED 02/17/2001 Comments: nausea/vomiting PENICILLIN G 02/17/2001 Comments: hives PRAVACHOL (PRAVASTATIN SODIUM) 03/09/2016 14 - Other: See Comments Comments: Leg cramps SULFA (SULFONAMIDE ANTIBIOTICS) 03/17/2001 Comments: hives VICODIN (HYDROCODONE-ACETAMINOPHE* 5 - Intolerance Comments: dizzy,nausea,vomiting,headac he ZITHROMAX (AZITHROMYCIN) 05/20/2017 5 - Intolerance Date Reviewed: 08/30/2024 Reviewed by: Julianna Cano LPN - Fully Assessed Reason for Visit: Patient Update [1234] Order(s):gabapentin (NEURONTIN) 100 mg capsuletake 100 mg in the evening daily x 1 week then increase to 200 mg in the evening daily x 1 week then can increase to 300 mg in the evening dailyDisp: 60 capsuleRfl: 2 Prescriptions as of 11/13/2024 - LORazepam (ATIVAN) 0.5 mg TAKE 1 TABLET BY MOUTH TWICE DAILY NEEDED FOR ANXIETY ATTACK - gabapentin (NEURONTIN) 100 mg capsule take 100 mg in the evening daily x 1 week then increase to 200 mg in the evening daily x 1 week then can increase to 300 mg in the evening daily - meloxicam (MOBIC) 15 mg tablet Take 1 tablet by mouth once daily. Take with food. - rOPINIRole (REQUIP) 1 mg tablet Take 1 tablet by mouth daily at bedtime. - blood sugar diagnostic test strip Use with blood glucose test 2 times daily, Insulin Dep? No - Lancets Use with blood glucose test 2 times daily. Insulin Dep? No - alcohol swabs Use with blood glucose test 2 times daily. Insulin Dep? No - PARoxetine (PAXIL) 40 mg tablet Take 1 tablet by mouth once daily. - furosemide (LASIX) 20 mg tablet Take 1 tablet by mouth once daily. - levothyroxine (SYNTHROID) 50 mcg tablet Take 1 tablet by mouth daily before breakfast. In the morning, Take on empty stomach at least 30 min before eating. For thyroid. - fluticasone-salmeterol (ADVAIR DISKUS) 250-50 mcg/dose inhaler Inhale 1 Puff as instructed two times a day. RINSE AND GARGLE MOUTH WITH WATER AFTER EACH USE. - Nebulizer Accessories kit 1 Kit as directed. - sucralfate (CARAFATE) 100 mg/mL suspension Take 10 mL by mouth four times daily. - Omeprazole Magnesium (PRILOSEC OTC) 20 mg tablet Take 1 tablet by mouth once daily. - cyanocobalamin (VITAMIN B-12) 1,000 mcg tab Take 1,000 mcg by mouth once daily. - spironolactone (ALDACTONE) 25 mg tablet Take 25 mg by mouth once daily. - hydrALAZINE (APRESOLINE) 25 mg tablet Take 50 mg by mouth two times a day at 6 am and 9 pm. - albuterol HFA (PROVENTIL HFA, VENTOLIN HFA) 90 mcg/actuation inhaler Inhale 2 Puffs as instructed every 4 hours as needed. - rosuvastatin (CRESTOR) 10 mg tablet Take 1 tablet by mouth daily at bedtime. - RESTASIS 0.05 % ophthalmic emulsion - Azelastine HCl (OPTIVAR) 0.05 % ophthalm (more content not included)... Normal [facility] Cardiology Visit Reporton Cardiology Visit Report [facility] [address] [place], [place] [address] OFFICE VISIT Date of Service: 11/02/24 MR#: [id number] Acct: [id number] Name: MICHAEL MEIER Rep #: [id number] : 1940 Provider: NIDA Carbajal Age/Sex: 84/F Location: [facility] Status: Signed with Addenda ADDENDUM by NIDA Katz on 11/02/24 at 1320 Addendum Addendum Details:: Reviewed with Dr. Alcala. He is concerned about right sided heart failure from her hospital stay in April. He is also requesting an echocardiogram. He would also like for her to be considered for a right and left heart cath and also to be able to get left ventricular end-diastolic pressure. Will follow-up with patient after echocardiogram. Assessment and Plan Assessment and Plan (1) WELCH (dyspnea on exertion): Status: Acute (2) Paroxysmal atrial fibrillation: Status: Chronic (3) Essential (primary) hypertension: Status: Chronic (4) History of permanent cardiac pacemaker placement: Status: Chronic Comment: 01/29/2011; Gen Change 06/09/21 (5) Pulmonary hypertension: Status: Acute (6) skilled nursing current use of amiodarone: Status: Acute Orders: Orders Echo Complete Today I27.20 - Pulmonary hypertension, unspecified Nuclear Stress Test - Chemical Today R06.09 - Other forms of dyspnea Plan Details Follow Up: 11/02/24 (keep as is) 11/02/24 1320 A> Date Anabel Horne cc: * Signed HPI HPI History of Present Illness Details: MICHAEL MEIER, is a 84 F who presents for a follow-up visit. She is a lady with a history of paroxysmal atrial fibrillation, status post permanent pacemaker implantation and recent generator change, hypertension, obstructive sleep apnea and a previous history of TIA. Echocardiogram from February 2024 demonstrates an ejection fraction of 60%. Stage II diastolic dysfunction with moderate pulmonary hypertension. She called our office earlier this week with concerns over worsening shortness of breath. Lab results that were done did not demonstrate any significant findings. Pt has gained weight. She is no longer on prednisone. She felt that this contributed to her weight gain. Intake Vital Signs 06/01/24 13:20 11/02/24 09:46 11/02/24 09:50 Height 5 ft 5 in 5 ft 5 in 5 ft 5 in Weight: 237 lb BMI 39.4 BP 152/62 H Blood Pressure Location Lt brachial Position Sitting Respiration 18 Pulse 59 L Pulse Source Monitor Intake Visit Reasons: See clinical notes re: SOB, appt moved up Thread Inspector Required: No Accompanied by: Friend Is patient in pain?: No Allergies ciprofloxacin (From Cipro) Allergy (Verified 11/02/24 09:42) Rash Penicillins (PCN) Allergy (Verified 11/02/24 09:42) Hives Sulfa (Sulfonamide Antibiotics) Allergy (Verified 11/02/24 09:42) Hives Beta-Blockers (Beta-Adrenergic Bloc Adverse Reaction (Verified 11/02/24 09:42) Other hydrocodone (From Vicodin) Adverse Reaction (Verified 11/02/24 09:42) Other lisinopril Adverse Reaction (Verified 11/02/24 09:42) cough meperidine (From Demerol) Adverse Reaction (Verified 11/02/24 09:42) Vomiting morphine Adverse Reaction (Verified 11/02/24 09:42) Other pravastatin Adverse Reaction (Verified 11/02/24 09:42) Other Medications ???Medication ???Instructions ???Recorded ???Confirmed ???Type lorazepam 0.5 mg tablet 0.5 mg PO BID PRN PRN Anxiety 05/0311/02/24 History aspirin 81 mg tablet,delayed 81 mg PO QDAY [employer] #90 tab s 12/27/18 11/02/24 Rx release (Adult Low Dose Aspirin) coenzyme Q10 100 mg capsule (Co 100 mg PO DAILY supplement 0 11/02/24 History Q-10) rosuvastatin 10 mg tablet 10 mg PO DAILY cholesterol 0 11/02/24 History sucralfate 100 mg/mL oral 10 ml PO TID PRN digestion 2 11/02/24 History suspension cyclosporine 0.05 % eye drops in a 1 drp EACH EYE Q12H eye health 0 09/27/23 11/02/24 History dropperette (Restasis) albuterol sulfate 90 mcg/actuation 2 puff inhalation Q6H PRN 11/02/24 Rx aerosol inhaler (ProAir HFA) shortness of breath or wheezing #6.7 grams levothyroxine 50 mcg capsule 50 mcg PO QDAY 01/25/24 11/02/24 H istory spironolactone 25 mg tablet 25 mg PO DAILY #30 tabs 01/25/24 0 11/02/24 Rx fluticasone propionate 110 1 inh inhalation Q12H 04/30/2407/25 History mcg/actuation HFA aerosol inhaler meloxicam 15 mg tablet 15 mg PO DAILY 04/30/24 11/02/24 H istory vitamin B complex (Balanced B-50 1 tab PO DAILY 04/30/24 11/02/24 H istory tablet) diltiazem HCl 240 mg 240 mg PO QHS heart #90 caps 05/1511/02/24 Rx capsule,extended release 24 hr hydralazine 50 mg tablet 50 mg PO BID #180 tabs 06/01/24 Rx fu (more content not included)... Normal [facility] 11-01-2024 [facility] (FAMDNA) MICHAEL MEIER ([id number]) 1940 F Date Time Provider Department 11/01/24 KEY PORTILLO [facility] During your visit today, we recorded the following information about you: Key Portillo APRN.[facility] 11/01/2024 9:22 AM Signed ----- Message from Sarah Merchant, PT sent at 10/27/2024 6:59 PM EDT ----- Hi Dr Puga, We're seeing Michael for PT (she was referred by [facility]) and we've also seen her here in the past for ortho/mobility issues. She's been reporting increased Shortness of Breath with minimal activity which I definitely noticed today (I encouraged her to go to ER prn but she doesn't think it's necessary). She's also reporting increased low back pain (mostly with standing AND walking). 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 I also think a spine/pain mgmt consult would be a good idea for the chronic/worsening low back pain. Thanks, Sarah Merchant, PT Key Portillo APRN.[facility] 11/01/2024 9:22 AM Signed Please see if patient is willing to make appointment due to Shortness of Breath as mentioned below. Thank you, Key Portillo APRN.Marisol Welsh LPN 11/01/2024 12:50 PM Signed Called spoke with pt she states tomorrow has a appointment with heart doctor then few days with lung doctor she states if does not get answers from them she will make appointment then and come in. Allergies As of Date: 11/01/2024 Noted Allergy Reaction CIPROFLOXACIN 09/05/2018 2 - Rash DEMEROL (MEPERIDINE (PF)) 02/06/2011 11 - Vomiting OPIOIDS - MORPHINE ANALOGUES 03/17/2001 5 - Intolerance Comments: nausea, dizzy, sees things OPIOIDS-MEPERIDINE AND RELATED 02/17/2001 Comments: nausea/vomiting PENICILLIN G 02/17/2001 Comments: imani PRAVACHOL (PRAVASTATIN SODIUM) 03/09/2016 14 - Other: See Comments Comments: Leg cramps SULFA (SULFONAMIDE ANTIBIOTICS) 03/17/2001 Comments: imani VICODIN (HYDROCODONE-ACETAMINOPHE* 5 - Intolerance Comments: dizzy,nausea,vomiting,headac he ZITHROMAX (AZITHROMYCIN) 05/20/2017 5 - Intolerance Date Reviewed: 08/30/2024 Reviewed by: Julianna Cano LPN - Fully Assessed Prescriptions as of 11/01/2024 - meloxicam (MOBIC) 15 mg tablet Take 1 tablet by mouth once daily. Take with food. - rOPINIRole (REQUIP) 1 mg tablet Take 1 tablet by mouth daily at bedtime. - blood sugar diagnostic test strip Use with blood glucose test 2 times daily, Insulin Dep? No - Lancets Use with blood glucose test 2 times daily. Insulin Dep? No - alcohol swabs Use with blood glucose test 2 times daily. Insulin Dep? No - PARoxetine (PAXIL) 40 mg tablet Take 1 tablet by mouth once daily. - furosemide (LASIX) 20 mg tablet Take 1 tablet by mouth once daily. - levothyroxine (SYNTHROID) 50 mcg tablet Take 1 tablet by mouth daily before breakfast. In the morning, Take on empty stomach at least 30 min before eating. For thyroid. - fluticasone-salmeterol (ADVAIR DISKUS) 250-50 mcg/dose inhaler Inhale 1 Puff as instructed two times a day. RINSE AND GARGLE MOUTH WITH WATER AFTER EACH USE. - Nebulizer Accessories kit 1 Kit as directed. - LORazepam (ATIVAN) 0.5 mg Take 1 tablet by mouth two times a day as needed (anxiety attack). - sucralfate (CARAFATE) 100 mg/mL suspension Take 10 mL by mouth four times daily. - Omeprazole Magnesium (PRILOSEC OTC) 20 mg tablet Take 1 tablet by mouth once daily. - cyanocobalamin (VITAMIN B-12) 1,000 mcg tab Take 1,000 mcg by mouth once daily. - spironolactone (ALDACTONE) 25 mg tablet Take 25 mg by mouth once daily. - hydrALAZINE (APRESOLINE) 25 mg tablet Take 50 mg by mouth two times a day at 6 am and 9 pm. - albuterol HFA (PROVENTIL HFA, VENTOLIN HFA) 90 mcg/actuation inhaler Inhale 2 Puffs as instructed every 4 hours as needed. - rosuvastatin (CRESTOR) 10 mg tablet Take 1 tablet by mouth daily at bedtime. - RESTASIS 0.05 % ophthalmic emulsion - Azelastine HCl (OPTIVAR) 0.05 % ophthalmic solution - aspirin, enteric coated (ASPIRIN, ENTERIC COATED) 81 mg EC tablet Take 81 mg by mouth once daily. - PACERONE 200 mg tablet Take 200 mg by mouth once daily. - ubidecarenone (COQ-10 ORAL) Take by mouth. - diltiazem CD (CARDIZEM CD) 240 mg 24 hr capsule Take 1 capsule by mouth once daily. Problem List As Of Date 11/01/2024 Noted Resolved MALIG MELANOMA TRUNK [C43.59] 02/17/2001 Melanoma of skin, site unspecified [C43.9] 01/09/2012 ALLERGIC RHINITIS NOS [J30.9] Other and unspecified hyperlipidemia [E78.5] 03/11/2015 Primary hypertension [I10] Unspecified gastritis and gastroduodenitis [535* 03/11/2015 Actinic keratosis [L57.0] 01/20/2007 03/11/2015 Other chronic dermatitis due to solar radiation*01/20/2007 01/09/2012 Scar condition and fibrosis of skin [L90.5] (more content not included)... Normal [facility] Absolute lymphocyte countOrd ered By: Anabel Horne on 10-31-2024 Lymphocytes Auto (Unsp spec) [#/Vol] 1.16 10*3/uL 0.83-4.51 [facility] Absolute neutrophil countOrd ered By: Anabel Horne on 10-31-2024 Neutrophils (Bld) [#/Vol] 10.5 10*3/uL High 2.0-7.7 [facility] Anion gap in Serum or Plasma Ordered By: Anabel Horne on 10-31-2024 Anion gap [Moles/Vol] 14 mmol/L 5-15 [facility] Automated lymphocyte count a s percentage of total leukocytesOrdered By: Anabel Horne on 10-31-2024 Lymphocytes/100 WBC Auto (Unsp spec) 8.7 % Low 19-41 [facility] BUN/creatinine ratioOrdered By: Anabel Horne on 10-31-2024 Urea nitrogen/Creatinine [Mass ratio] 26.2 mg/mg High - [facility] Basic Metabolic Profile (BMP )on 10-31-2024 BUN/CRE 26.2 RATIO High 10- [facility] Comment on above: Performed By: #### L 500.3400, L501.2450 #### [facility] [address] [place], [address] Calcium [Mass/Vol] 9.0 mg/dL Normal 7.6-11.0 [facility] Comment on above: Performed By: #### L 500.3400, L501.2450 #### [facility] [address] [place], [address] Chloride [Moles/Vol] 96 mmol/L Low 98-108 [facility] Comment on above: Performed By: #### L 500.3400, L501.2450 #### [facility] [address] [place], [address] CO2 [Moles/Vol] 23.0 mmol/L Normal 21.0-32.0 [facility] Comment on above: Performed By: #### L 500.3400, L501.2450 #### [facility] [address] [place], [address] Creatinine [Mass/Vol] 1.40 mg/dL High 0.70-1.20 [facility] Comment on above: Performed By: #### L 500.3400, L501.2450 #### [facility] [address] [place], [address] GAP 14 Normal 5-15 [facility] Comment on above: Performed By: #### L 500.3400, L501.2450 #### [facility] [address] [place], [address] GFR/1.73 sq M.predicted among non-blacks MDRD (S/P/Bld) [Vol rate/Area] 37 mL/min/{1.73_m2} Low >60 [facility] Comment on above: Result Comment: mL/m in/1.73m2 CKD-EPI Creatinine Equation (2020) Performed By: #### L 500.3400, L501.2450 #### [facility] [address] [place], [address] Glucose [Mass/Vol] 94 mg/dL Normal 70-99 [facility] Comment on above: Performed By: #### L 500.3400, L501.2450 #### [facility] [address] [place], [address] Potassium [Moles/Vol] 5.0 mmol/L Normal 3.3-5.1 [facility] Comment on above: Result Comment: Hemo lysis present, Results??could be affected. ?? Performed By: #### L 500.3400, L501.2450 #### [facility] [address] [place], [address] Sodium [Moles/Vol] 133 mmol/L Normal 133-145 [facility] Comment on above: Performed By: #### L 500.3400, L501.2450 #### [facility] [address] [place], [address] Urea nitrogen [Mass/Vol] 37 mg/dL High 4-19 [facility] Comment on above: Performed By: #### L 500.3400, L501.2450 #### [facility] [address] [place], [address] Basophil percentageOrdered B y: Anabel Horne on 10-31-2024 Basophils/100 WBC (Bld) 0.6 % 0-1 [facility] CBC W/Diff, Automatedon 07-0 Absolute Lymph 1.16 X10 3/uL Normal 0.83-4.51 [facility] Comment on above: Performed By: #### L 100.0100, L501.9520, L500.2500, L503.7505 #### [facility] [address] [place], [address] Absolute Neut 10.5 X10 3/uL High 2.0-7.7 [facility] Comment on above: Performed By: #### L 100.0100, L501.9520, L500.2500, L503.7505 #### [facility] [address] [place], [address] Basophils/100 WBC (Bld) 0.6 % Normal 0-1 [facility] Comment on above: Performed By: #### L 100.0100, L501.9520, L500.2500, L503.7505 #### [facility] [address] [place], [address] Eosinophils/100 WBC (Bld) 0.7 % Normal 0-5 [facility] Comment on above: Performed By: #### L 100.0100, L501.9520, L500.2500, L503.7505 #### [facility] [address] [place], [address] Erythrocyte distribution width (RBC) [Ratio] 14.4 % Normal 11.6-14.6 [facility] Comment on above: Performed By: #### L 100.0100, L501.9520, L500.2500, L503.7505 #### [facility] [address] [place], [address] Hematocrit (Bld) [Volume fraction] 37.0 % Normal 37-47 [facility] Comment on above: Performed By: #### L 100.0100, L501.9520, L500.2500, L503.7505 #### [facility] [address] [place], [address] Hemoglobin (Bld) [Mass/Vol] 12.4 g/dL Normal 12.0-15.0 [facility] Comment on above: Performed By: #### L 100.0100, L501.9520, L500.2500, L503.7505 #### [facility] [address] [place], [address] IG% 0.500 Normal 0.0-0.9 [facility] Comment on above: Result Comment: IG% - Immature Granulocytes (promyelocytes, myelocytes and metamyelocytes) > 1% indicates that a LEFT SHIFT is Present. Performed By: #### L 100.0100, L501.9520, L500.2500, L503.7505 #### [facility] [address] [place], [address] Lymphocytes/100 WBC (Bld) 8.7 % Low 19-41 [facility] Comment on above: Performed By: #### L 100.0100, L501.9520, L500.2500, L503.7505 #### [facility] [address] [place], [address] MCH (RBC) [Entitic mass] 30.3 pg Normal 27.0-32.0 [facility] Comment on above: Performed By: #### L 100.0100, L501.9520, L500.2500, L503.7505 #### [facility] [address] [place], [address] MCHC (RBC) [Mass/Vol] 33.5 g/dL Normal 32-36 [facility] Comment on above: Performed By: #### L 100.0100, L501.9520, L500.2500, L503.7505 #### [facility] [address] [place], [address] MCV (RBC) [Entitic vol] 90.5 fL Normal 81-99 [facility] Comment on above: Performed By: #### L 100.0100, L501.9520, L500.2500, L503.7505 #### [facility] [address] [place], [address] Monocytes/100 WBC (Bld) 10.6 % High 0-10 [facility] Comment on above: Performed By: #### L 100.0100, L501.9520, L500.2500, L503.7505 #### [facility] [address] [place], [address] Neutrophils/100 WBC (Bld) 78.9 % High 47-70 [facility] Comment on above: Performed By: #### L 100.0100, L501.9520, L500.2500, L503.7505 #### [facility] [address] [place], [address] Nucleated RBC (Bld) [#/Vol] 0 10*3/uL Normal 0-5 [facility] Comment on above: Performed By: #### L 100.0100, L501.9520, L500.2500, L503.7505 #### [facility] [address] [place], [address] Platelet mean volume (Bld) [Entitic vol] 10.1 fL Normal 6.2-12.0 [facility] Comment on above: Performed By: #### L 100.0100, L501.9520, L500.2500, L503.7505 #### [facility] [address] [place], [address] Platelets (Bld) [#/Vol] 292 10*3/uL Normal 150-450 [facility] Comment on above: Performed By: #### L 100.0100, L501.9520, L500.2500, L503.7505 #### [facility] [address] [place], [address] RBC (Bld) [#/Vol] 4.09 10*6/uL Low 4.2-5.4 [place] Comment on above: Performed By: #### L 100.0100, L501.9520, L500.2500, L503.7505 #### [facility] [address] [place], [address] RDW SD 47.9 fl High 35.1-43.9 [facility] Comment on above: Performed By: #### L 100.0100, L501.9520, L500.2500, L503.7505 #### [facility] [address] [place], [address] WBC (Bld) [#/Vol] 13.3 10*3/uL High 4.4-11.0 [place] Comment on above: Performed By: #### L 100.0100, L501.9520, L500.2500, L503.7505 #### [facility] [address] [place], [address] Carbon dioxide, total [Moles /volume] in Central venous bloodOrdered By: Anabel Horne on 10-31-2024 CO2 [Moles/Vol] 23.0 mmol/L 21.0-32.0 [facility] Chest PA and Lateralon 10-31 Chest PA and Lateral [facility] [address] [place] [address] Chest PA and Lateral MR#: [id number] Acct: [id number] Name: MICHAEL MEIER Rep #: [id number] : 1940 F 84 From: Raudel Bradley MD PCP: Dr. 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 Mediastinum: The mediastinal contour is stable. Lungs: Chronic interstitial changes in both lung ochoa without a superimposed acute pulmonary process Bones: Degenerative changes are identified within the thoracic spine. RAD/Chest PA and Lateral IMPRESSION: Chronic interstitial changes, no superimposed acute pulmonary process, no interval change Reading Location: [id number] CC: Dr. Michael Puga DO; NIDA Katz [employer] Developer: Signed Normal [facility] Chloride assayOrdered By: Sugey Horne on 10-31-2024 Chloride [Moles/Vol] 96 mmol/L Low 98-108 [facility] Eosinophil percentageOrdered By: Anabel Horne on 10-31-2024 Eosinophils/100 WBC (Bld) 0.7 % 0-5 [facility] Erythrocyte distribution wid th ratioOrdered By: Anabel Horne on 10-31-2024 Erythrocyte distribution width (RBC) [Ratio] 14.4 % 11.6-14.6 [facility] Erythrocyte distribution wid th standard deviationOrdered By: Anabel Horne on 10-31-2024 Erythrocyte distribution width (RBC) [Ratio] 47.9 fl High 35.1-43.9 [facility] Glomerular filtration rate ( GFR) estimation/1.73 sq m using serum, plasma, or whole bOrdered By: Anabel Horne on 10-31-2024 GFR/1.73 sq M.predicted among non-blacks MDRD (S/P/Bld) [Vol rate/Area] 37 mL/min/{1.73_m2} Low >60 [facility] Comment on above: mL/min/1.73m2 CKD-EP I Creatinine Equation (2020) Hematocrit Auto (Bld) [Volum e fraction]Ordered By: Anabel Horne on 10-31-2024 Hematocrit (Bld) [Volume fraction] 37.0 % 37-47 [facility] Hemoglobin measurementOrdere d By: Anabel Horne on 10-31-2024 Hemoglobin (Bld) [Mass/Vol] 12.4 g/dL 12.0-15.0 [facility] Immature granulocytes/100 WB C Auto (Bld)Ordered By: Anabel Horne on 10-31-2024 Immature granulocytes/100 WBC (Bld) 0.500 % 0.0-0.9 [facility] Comment on above: IG% - Immature Granu locytes (promyelocytes, myelocytes and metamyelocytes) > 1% indicates that a LEFT SHIFT is Present. L503.7505on 10-31-2024 Natriuretic peptide B (Bld) [Mass/Vol] 216 pg/mL Normal <=1800 [facility] Comment on above: Result Comment: Hear t Failure Unlikely: < 300 pg/mL Heart Failure Likely < 50 Years: > 450 pg/mL 50-75 Years: > 900 pg/mL >75 Years: > 1800 pg/mL Performed By: #### L 500.3400, L501.2450 #### [facility] [address] [place], [address] MCV (mean corpuscular volume ) determinationOrdered By: Anabel Horne on 10-31-2024 MCV (RBC) [Entitic vol] 90.5 fL 81-99 [facility] Mean corpuscular hemoglobin (MCH) determinationOrdered By: Anabel Horne on 10-31-2024 MCH (RBC) [Entitic mass] 30.3 pg 27.0-32.0 [facility] Mean corpuscular hemoglobin concentration (MCHC) determinationOrdered By: Anabel Horne on 10-31-2024 MCHC (RBC) [Mass/Vol] 33.5 g/dL 32-36 [facility] Mean platelet volume determi nationOrdered By: Anabel Horne on 10-31-2024 Platelet mean volume (Bld) [Entitic vol] 10.1 fL 6.2-12.0 [facility] Monocyte percentageOrdered B y: Anabel Horne on 10-31-2024 Monocytes/100 WBC (Bld) 10.6 % High 0-10 [facility] Natriuretic peptide.B prohor carmelita N-Terminal [Mass/volume] in Serum or PlasmaOrdered By: Anabel Horne on 10-31-2024 Natriuretic peptide.B prohormone N-Terminal [Mass/Vol] 216 pg/mL <1800 [facility] Comment on above: Heart Failure Unlike ly: < 300 pg/mLHeart Failure Likely< 50 Years: > 450 pg/mL50-75 Years: > 900 pg/mL>75 Years: > 1800 pg/mL Neutrophil percentageOrdered By: Anabel Horne on 10-31-2024 Neutrophils/100 WBC (Bld) 78.9 % High 47-70 [facility] Nucleated red blood cell per centageOrdered By: Anabel Horne on 10-31-2024 Nucleated RBC/100 WBC (Bld) [Ratio] 0 % 0-5 [facility] Platelet countOrdered By: Sugey Horne on 10-31-2024 Platelets (Bld) [#/Vol] 292 10*3/uL 150-450 [facility] Potassium measurement (mass/ volume)Ordered By: Anabel Horne on 10-31-2024 Potassium (Unsp spec) [Mass/Vol] 5.0 mmol/L 3.3-5.1 [facility] Comment on above: Hemolysis present, R esults could be affected. RBC Auto (Bld) [#/Vol]Ordere d By: Anabel Horne on 10-31-2024 RBC (Bld) [#/Vol] 4.09 10*6/uL Low 4.2-5.4 [place] Serum creatinine measurement (mass/volume)Ordered By: Anabel Horne on 10-31-2024 Creatinine [Mass/Vol] 1.40 mg/dL High 0.70-1.20 [facility] Serum glucose measurement (m ass/volume)Ordered By: Anabel Horne on 10-31-2024 Glucose [Mass/Vol] 94 mg/dL 70-99 [facility] Serum or plasma calcium julee urement (mass/volume)Ordered By: Anabel Horne on 10-31-2024 Calcium [Mass/Vol] 9.0 mg/dL 7.6-11.0 [facility] Serum or plasma urea nitroge n measurement (mass/volume)Ordered By: Anabel Horne on 10-31-2024 Urea nitrogen [Mass/Vol] 37 mg/dL High 4-19 [facility] Sodium levelOrdered By: Thien Horne on 10-31-2024 Sodium [Moles/Vol] 133 mmol/L 133-145 [facility] TSH DL <= 0.005 mIU/L QnOrde red By: Anabel Horne on 10-31-2024 TSH Qn 3.460 uIU/mL 0.300-4.20 0 [facility] Thyroid Stim Hormone (TSH)on 10-31-2024 TSH 3.460 uIU/mL Normal 0.300-4.20 0 [facility] Comment on above: Performed By: #### L 500.3400, L501.2450 #### [facility] [address] [place], [address] White blood cell (WBC) count Ordered By: Anabel Horne on 10-31-2024 WBC (Bld) [#/Vol] 13.3 10*3/uL High 4.4-11.0 [place] CNTHERAPYon 10-27-2024 CNTHERAPY OT/PT/Speech Visit ( LDPT) MICHAEL MEIER ([id number]) 1940 F Date Time Provider Department 10/27/24 12:45 PM SARAH MERCHANT LDPT Date Time Provider Department Center 10/27/2024 12:45 PM [id number], CARLA LDPT [facility] Reason for Visit: Physical Therapy [503] Primary Visit Diagnosis:Abnormality of gait [R26.9] Other Visit Diagnoses:Weakness [R53.1] Difficulty walking [R26.2] Imbalance [R26.89] Allergies As of Date: 10/27/2024 Noted Allergy Reaction CIPROFLOXACIN 09/05/2018 2 - Rash DEMEROL (MEPERIDINE (PF)) 02/06/2011 11 - Vomiting OPIOIDS - MORPHINE ANALOGUES 03/17/2001 5 - Intolerance Comments: nausea, dizzy, sees things OPIOIDS-MEPERIDINE AND RELATED 02/17/2001 Comments: nausea/vomiting PENICILLIN G 02/17/2001 Comments: hives PRAVACHOL (PRAVASTATIN SODIUM) 03/09/2016 14 - Other: See Comments Comments: Leg cramps SULFA (SULFONAMIDE ANTIBIOTICS) 03/17/2001 Comments: hives VICODIN (HYDROCODONE-ACETAMINOPHE* 5 - Intolerance Comments: dizzy,nausea,vomiting,headac he ZITHROMAX (AZITHROMYCIN) 05/20/2017 5 - Intolerance Date Reviewed: 08/30/2024 Reviewed by: Julianna Cano LPN - Fully Assessed Prescriptions as of 10/27/2024 - meloxicam (MOBIC) 15 mg tablet Take 1 tablet by mouth once daily. Take with food. - rOPINIRole (REQUIP) 1 mg tablet Take 1 tablet by mouth daily at bedtime. - blood sugar diagnostic test strip Use with blood glucose test 2 times daily, Insulin Dep? No - Lancets Use with blood glucose test 2 times daily. Insulin Dep? No - alcohol swabs Use with blood glucose test 2 times daily. Insulin Dep? No - PARoxetine (PAXIL) 40 mg tablet Take 1 tablet by mouth once daily. - furosemide (LASIX) 20 mg tablet Take 1 tablet by mouth once daily. - levothyroxine (SYNTHROID) 50 mcg tablet Take 1 tablet by mouth daily before breakfast. In the morning, Take on empty stomach at least 30 min before eating. For thyroid. - fluticasone-salmeterol (ADVAIR DISKUS) 250-50 mcg/dose inhaler Inhale 1 Puff as instructed two times a day. RINSE AND GARGLE MOUTH WITH WATER AFTER EACH USE. - Nebulizer Accessories kit 1 Kit as directed. - LORazepam (ATIVAN) 0.5 mg Take 1 tablet by mouth two times a day as needed (anxiety attack). - sucralfate (CARAFATE) 100 mg/mL suspension Take 10 mL by mouth four times daily. - Omeprazole Magnesium (PRILOSEC OTC) 20 mg tablet Take 1 tablet by mouth once daily. - cyanocobalamin (VITAMIN B-12) 1,000 mcg tab Take 1,000 mcg by mouth once daily. - spironolactone (ALDACTONE) 25 mg tablet Take 25 mg by mouth once daily. - hydrALAZINE (APRESOLINE) 25 mg tablet Take 50 mg by mouth two times a day at 6 am and 9 pm. - albuterol HFA (PROVENTIL HFA, VENTOLIN HFA) 90 mcg/actuation inhaler Inhale 2 Puffs as instructed every 4 hours as needed. - rosuvastatin (CRESTOR) 10 mg tablet Take 1 tablet by mouth daily at bedtime. - RESTASIS 0.05 % ophthalmic emulsion - Azelastine HCl (OPTIVAR) 0.05 % ophthalmic solution - aspirin, enteric coated (ASPIRIN, ENTERIC COATED) 81 mg EC tablet Take 81 mg by mouth once daily. - PACERONE 200 mg tablet Take 200 mg by mouth once daily. - ubidecarenone (COQ-10 ORAL) Take by mouth. - diltiazem CD (CARDIZEM CD) 240 mg 24 hr capsule Take 1 capsule by mouth once daily. Normal [facility] CNPN Telephone (FAMPWS) HARDEEPMICHAEL [place] ([id number]) 1940 F Date Time Provider Department 10/25/24 [facility] During your visit today, we recorded the following information about you: Tameka Marin RN 10/25/2024 1:38 PM Signed Patient calling and asking if her Meloxicam can be increased at all? She currently takes 15 mg daily. She is receiving PT. Reports she has spinal stenosis and her back discomfort is currently an 8 out of 10 on pain scale. Reports her back hurts when she walks. Uses heat at times but only helps short term. Please advise. GLYNN Gambino Jordan L, DO 10/25/2024 10:10 PM Signed No this dose can't be increased. We can consider changing the meloxicam to an alternative such as Celebrex 100 mg twice a day with food as needed. Or she can add on 500 mg of Tylenol every 6 hours for pain DO Jeet Dow Amanda, RN 10/26/2024 8:40 AM Signed Pt called and is notified of providers message and instructions. Pt voices understanding, she states she will add the Tylenol. Katia Marcano RN Allergies As of Date: 10/25/2024 Noted Allergy Reaction CIPROFLOXACIN 09/05/2018 2 - Rash DEMEROL (MEPERIDINE (PF)) 02/06/2011 11 - Vomiting OPIOIDS - MORPHINE ANALOGUES 03/17/2001 5 - Intolerance Comments: nausea, dizzy, sees things OPIOIDS-MEPERIDINE AND RELATED 02/17/2001 Comments: nausea/vomiting PENICILLIN G 02/17/2001 Comments: hives PRAVACHOL (PRAVASTATIN SODIUM) 03/09/2016 14 - Other: See Comments Comments: Leg cramps SULFA (SULFONAMIDE ANTIBIOTICS) 03/17/2001 Comments: hives VICODIN (HYDROCODONE-ACETAMINOPHE* 5 - Intolerance Comments: dizzy,nausea,vomiting,headac he ZITHROMAX (AZITHROMYCIN) 05/20/2017 5 - Intolerance Date Reviewed: 08/30/2024 Reviewed by: Julianna Cano LPN - Fully Assessed Reason for Visit: Medication Question [Other] Prescriptions as of 10/26/2024 - meloxicam (MOBIC) 15 mg tablet Take 1 tablet by mouth once daily. Take with food. - rOPINIRole (REQUIP) 1 mg tablet Take 1 tablet by mouth daily at bedtime. - blood sugar diagnostic test strip Use with blood glucose test 2 times daily, Insulin Dep? No - Lancets Use with blood glucose test 2 times daily. Insulin Dep? No - alcohol swabs Use with blood glucose test 2 times daily. Insulin Dep? No - PARoxetine (PAXIL) 40 mg tablet Take 1 tablet by mouth once daily. - furosemide (LASIX) 20 mg tablet Take 1 tablet by mouth once daily. - levothyroxine (SYNTHROID) 50 mcg tablet Take 1 tablet by mouth daily before breakfast. In the morning, Take on empty stomach at least 30 min before eating. For thyroid. - fluticasone-salmeterol (ADVAIR DISKUS) 250-50 mcg/dose inhaler Inhale 1 Puff as instructed two times a day. RINSE AND GARGLE MOUTH WITH WATER AFTER EACH USE. - Nebulizer Accessories kit 1 Kit as directed. - LORazepam (ATIVAN) 0.5 mg Take 1 tablet by mouth two times a day as needed (anxiety attack). - sucralfate (CARAFATE) 100 mg/mL suspension Take 10 mL by mouth four times daily. - Omeprazole Magnesium (PRILOSEC OTC) 20 mg tablet Take 1 tablet by mouth once daily. - cyanocobalamin (VITAMIN B-12) 1,000 mcg tab Take 1,000 mcg by mouth once daily. - spironolactone (ALDACTONE) 25 mg tablet Take 25 mg by mouth once daily. - hydrALAZINE (APRESOLINE) 25 mg tablet Take 50 mg by mouth two times a day at 6 am and 9 pm. - albuterol HFA (PROVENTIL HFA, VENTOLIN HFA) 90 mcg/actuation inhaler Inhale 2 Puffs as instructed every 4 hours as needed. - rosuvastatin (CRESTOR) 10 mg tablet Take 1 tablet by mouth daily at bedtime. - RESTASIS 0.05 % ophthalmic emulsion - Azelastine HCl (OPTIVAR) 0.05 % ophthalmic solution - aspirin, enteric coated (ASPIRIN, ENTERIC COATED) 81 mg EC tablet Take 81 mg by mouth once daily. - PACERONE 200 mg tablet Take 200 mg by mouth once daily. - ubidecarenone (COQ-10 ORAL) Take by mouth. - diltiazem CD (CARDIZEM CD) 240 mg 24 hr capsule Take 1 capsule by mouth once daily. Problem List As Of Date 10/25/2024 Noted Resolved MALIG MELANOMA TRUNK [C43.59] 02/17/2001 Melanoma of skin, site unspecified [C43.9] 01/09/2012 ALLERGIC RHINITIS NOS [J30.9] Other and unspecified hyperlipidemia [E78.5] 03/11/2015 Primary hypertension [I10] Unspecified gastritis and gastroduodenitis [535* 03/11/2015 Actinic keratosis [L57.0] 01/20/2007 03/11/2015 Other chronic dermatitis due to solar radiation*01/20/2007 01/09/2012 Scar condition and fibrosis of skin [L90.5] 01/20/2007 03/11/2015 SOLAR LENGINES///DYSCHROMIA OTHER [L81.9] 01/20/2007 01/09/2012 Other seborrheic keratosis [L82.1] 01/20/2007 01/09/2012 NEVUS///BENIGN COLIN SKIN TRUNK [D23.5] 01/20/2007 01/09/2012 NEVI///BENIGN COLIN SKIN FACE NEC [D23.30] 01/20/2007 01/09/2012 SEBACEOUS HYPERPLASIA///SEBACEOUS GLAND DIS NOS*01/20/2007 01/09/2012 DYSMETABOLIC SYNDRO (more content not included)... Normal [facility] CNTHERAPYon 10-09-2024 CNTHERAPY OT/PT/Speech Visit ( LDPT) HARDEEPMICHAEL ([id number]) 1940 F Date Time Provider Department 10/09/24 12:45 PM JOY SUN Date Time Provider Department [place] 10/09/2024 12:45 PM [id number] SUNLDFRANTZ [facility] Reason for Visit: Physical Therapy [503] Primary Visit Diagnosis:Abnormality of gait [R26.9] Other Visit Diagnoses:Weakness [R53.1] Difficulty walking [R26.2] Imbalance [R26.89] Allergies As of Date: 10/09/2024 Noted Allergy Reaction CIPROFLOXACIN 09/05/2018 2 - Rash DEMEROL (MEPERIDINE (PF)) 02/06/2011 11 - Vomiting OPIOIDS - MORPHINE ANALOGUES 03/17/2001 5 - Intolerance Comments: nausea, dizzy, sees things OPIOIDS-MEPERIDINE AND RELATED 02/17/2001 Comments: nausea/vomiting PENICILLIN G 02/17/2001 Comments: imani PRAVACHOL (PRAVASTATIN SODIUM) 03/09/2016 14 - Other: See Comments Comments: Leg cramps SULFA (SULFONAMIDE ANTIBIOTICS) 03/17/2001 Comments: imani VICODIN (HYDROCODONE-ACETAMINOPHE* 5 - Intolerance Comments: dizzy,nausea,vomiting,headac he ZITHROMAX (AZITHROMYCIN) 05/20/2017 5 - Intolerance Date Reviewed: 08/30/2024 Reviewed by: Julianna Cano LPN - Fully Assessed Prescriptions as of 10/09/2024 - meloxicam (MOBIC) 15 mg tablet Take 1 tablet by mouth once daily. Take with food. - rOPINIRole (REQUIP) 1 mg tablet Take 1 tablet by mouth daily at bedtime. - blood sugar diagnostic test strip Use with blood glucose test 2 times daily, Insulin Dep? No - Lancets Use with blood glucose test 2 times daily. Insulin Dep? No - alcohol swabs Use with blood glucose test 2 times daily. Insulin Dep? No - PARoxetine (PAXIL) 40 mg tablet Take 1 tablet by mouth once daily. - furosemide (LASIX) 20 mg tablet Take 1 tablet by mouth once daily. - levothyroxine (SYNTHROID) 50 mcg tablet Take 1 tablet by mouth daily before breakfast. In the morning, Take on empty stomach at least 30 min before eating. For thyroid. - fluticasone-salmeterol (ADVAIR DISKUS) 250-50 mcg/dose inhaler Inhale 1 Puff as instructed two times a day. RINSE AND GARGLE MOUTH WITH WATER AFTER EACH USE. - Nebulizer Accessories kit 1 Kit as directed. - LORazepam (ATIVAN) 0.5 mg Take 1 tablet by mouth two times a day as needed (anxiety attack). - sucralfate (CARAFATE) 100 mg/mL suspension Take 10 mL by mouth four times daily. - Omeprazole Magnesium (PRILOSEC OTC) 20 mg tablet Take 1 tablet by mouth once daily. - cyanocobalamin (VITAMIN B-12) 1,000 mcg tab Take 1,000 mcg by mouth once daily. - spironolactone (ALDACTONE) 25 mg tablet Take 25 mg by mouth once daily. - hydrALAZINE (APRESOLINE) 25 mg tablet Take 50 mg by mouth two times a day at 6 am and 9 pm. - albuterol HFA (PROVENTIL HFA, VENTOLIN HFA) 90 mcg/actuation inhaler Inhale 2 Puffs as instructed every 4 hours as needed. - rosuvastatin (CRESTOR) 10 mg tablet Take 1 tablet by mouth daily at bedtime. - RESTASIS 0.05 % ophthalmic emulsion - Azelastine HCl (OPTIVAR) 0.05 % ophthalmic solution - aspirin, enteric coated (ASPIRIN, ENTERIC COATED) 81 mg EC tablet Take 81 mg by mouth once daily. - PACERONE 200 mg tablet Take 200 mg by mouth once daily. - ubidecarenone (COQ-10 ORAL) Take by mouth. - diltiazem CD (CARDIZEM CD) 240 mg 24 hr capsule Take 1 capsule by mouth once daily. Normal [facility] CNTHERAPYon 10-02-2024 CNTHERAPY OT/PT/Speech Visit ( LDPT) BRADENMICHAEL DAVIES ([id number]) 1940 F Date Time Provider Department 10/02/24 3:00 PM PJ BLEDSOE Date Time Provider Department Center 10/02/2024 3:00 PM [id number] BLEDSOE [facility] Reason for Visit: Physical Therapy [503] Primary Visit Diagnosis:Abnormality of gait [R26.9] Other Visit Diagnoses:Weakness [R53.1] Difficulty walking [R26.2] Imbalance [R26.89] Allergies As of Date: 10/02/2024 Noted Allergy Reaction CIPROFLOXACIN 09/05/2018 2 - Rash DEMEROL (MEPERIDINE (PF)) 02/06/2011 11 - Vomiting OPIOIDS - MORPHINE ANALOGUES 03/17/2001 5 - Intolerance Comments: nausea, dizzy, sees things OPIOIDS-MEPERIDINE AND RELATED 02/17/2001 Comments: nausea/vomiting PENICILLIN G 02/17/2001 Comments: imani PRAVACHOL (PRAVASTATIN SODIUM) 03/09/2016 14 - Other: See Comments Comments: Leg cramps SULFA (SULFONAMIDE ANTIBIOTICS) 03/17/2001 Comments: imani VICODIN (HYDROCODONE-ACETAMINOPHE* 5 - Intolerance Comments: dizzy,nausea,vomiting,headac he ZITHROMAX (AZITHROMYCIN) 05/20/2017 5 - Intolerance Date Reviewed: 08/30/2024 Reviewed by: Julianna Cano LPN - Fully Assessed Prescriptions as of 10/02/2024 - meloxicam (MOBIC) 15 mg tablet Take 1 tablet by mouth once daily. Take with food. - rOPINIRole (REQUIP) 1 mg tablet Take 1 tablet by mouth daily at bedtime. - blood sugar diagnostic test strip Use with blood glucose test 2 times daily, Insulin Dep? No - Lancets Use with blood glucose test 2 times daily. Insulin Dep? No - alcohol swabs Use with blood glucose test 2 times daily. Insulin Dep? No - PARoxetine (PAXIL) 40 mg tablet Take 1 tablet by mouth once daily. - furosemide (LASIX) 20 mg tablet Take 1 tablet by mouth once daily. - levothyroxine (SYNTHROID) 50 mcg tablet Take 1 tablet by mouth daily before breakfast. In the morning, Take on empty stomach at least 30 min before eating. For thyroid. - fluticasone-salmeterol (ADVAIR DISKUS) 250-50 mcg/dose inhaler Inhale 1 Puff as instructed two times a day. RINSE AND GARGLE MOUTH WITH WATER AFTER EACH USE. - Nebulizer Accessories kit 1 Kit as directed. - LORazepam (ATIVAN) 0.5 mg Take 1 tablet by mouth two times a day as needed (anxiety attack). - sucralfate (CARAFATE) 100 mg/mL suspension Take 10 mL by mouth four times daily. - Omeprazole Magnesium (PRILOSEC OTC) 20 mg tablet Take 1 tablet by mouth once daily. - cyanocobalamin (VITAMIN B-12) 1,000 mcg tab Take 1,000 mcg by mouth once daily. - spironolactone (ALDACTONE) 25 mg tablet Take 25 mg by mouth once daily. - hydrALAZINE (APRESOLINE) 25 mg tablet Take 50 mg by mouth two times a day at 6 am and 9 pm. - albuterol HFA (PROVENTIL HFA, VENTOLIN HFA) 90 mcg/actuation inhaler Inhale 2 Puffs as instructed every 4 hours as needed. - rosuvastatin (CRESTOR) 10 mg tablet Take 1 tablet by mouth daily at bedtime. - RESTASIS 0.05 % ophthalmic emulsion - Azelastine HCl (OPTIVAR) 0.05 % ophthalmic solution - aspirin, enteric coated (ASPIRIN, ENTERIC COATED) 81 mg EC tablet Take 81 mg by mouth once daily. - PACERONE 200 mg tablet Take 200 mg by mouth once daily. - ubidecarenone (COQ-10 ORAL) Take by mouth. - diltiazem CD (CARDIZEM CD) 240 mg 24 hr capsule Take 1 capsule by mouth once daily. [facility] [id number] 09-28-2024 [id number] O ID: [id number] Author: SARAH MERCHANT PT Service: ? Author Type: Physical Therapist Type: [id number] Filed: 09/28/2024 15:41 Note Text: [facility] Physical Therapy Plan of Care Certification Patient Name: Michael Meier : 1940 [facility] #: [id number] Date: 09/28/2024 To: Arlene Schwarz MD From Therapist: Sarah Merchant PT RE: Patient Certification/ Recertification Your review, approval and electronic signature are required in order to comply with Payor: MEDICARE / Plan: MEDICARE A AND B / Product Type: Medicare / regulations. The identified Physical Therapy PLAN OF CARE for the patient is as follows: No diagnosis found. PLAN OF CARE: Assessment: Michael Meier presents with chief complaint of general weakness and difficulty walking that interferes with walking, walking in the community, physical activities, recreational activities, carrying, heavy exertion, standing . The patient presents with impairments in ADL's, balance, gait, independence in exercise, overall function, strength, and symptom management. PROMIS? (Patient-Reported Outcomes Measurement Information System) scores were reviewed and identified as a rehabilitation concern. Prognosis for therapy is Fair due to: advanced age, chronic nature of impairments, limited tolerance to activity, clinical presentation, poor past response to therapy intervention, limited support system . She is referred to PT by orthopedic group whom she's seen for her hips - she went to get hips checked by ortho d/t hip pain AND weakness and they referred her to PT. Pt says hip Xrays looked good, US showed injury/tearing of L glut muscle (surgery not advised). The patient will benefit from skilled therapy services to meet the goals established for this plan of care as noted below. Goals for Episode of Care: established 09/28/24 Patient reported outcome of physical function will increase T-score by a minimum 5 points. [place] in home exercise program. Patient will demonstrate increase in abdominal, LE AND UE strength to 4+/5 during manual muscle testing in order to improve function for basic self-care tasks, home management tasks, and prior functional tasks. Patient will improve 5 time sit to stand to demonstrate improvement in functional lower extremity strength. Improve postural awareness. Patient will increase balance to Fair+/Normal with static/dynamic standing balance and allow patient to demonstrate appropriate balance strategies to reduce risk for falls. Patient will report no falls. Patient will demonstrate independent and proper use of assisstive device to allow for improved walking quality and safety therefore reducing the risk of falls. Patient Goals: strengthen my legs, get around better Time Frame for Goals and Treatment : 12/27/24 Planned Interventions, Frequency, and Duration: Current Frequency: 1x/week Duration: 12 weeks Total Number of Visits Planned: 12 Planned Treatment Interventions: Therapeutic exercise (83668), Neuromuscular re-education (95558), Therapeutic activities (26726), Self-senior care management (13875), Gait Training (39475), Patient/Family/Caregiver Education, General Conditioning PLAN FOR NEXT VISIT: address core, LE AND UE strength. improve endurance AND balance Patient demonstrates good understanding of plan of care and treatment. The above goals and plan of care were discussed and agreed upon by patient/family. For further details regarding this patient refer to the Physical Therapy electronically documented visit dated 09/28/2024. Provider Attestation I have reviewed the treatment plan for Michael Deras Hardeep, [facility]# [id number] for the period of 09/28/24 -- 12/27/24, established on 09/28/2024. Signature certifies the need for therapy services. [facility] 09-28-2024 [facility] Telephone (FAMPWS) MICHAEL MEIER ([id number]) 1940 F Date Time Provider Department 09/28/24 KEY PORTILLO During your visit today, we recorded the following information about you: Nadine Colon LPN 09/28/2024 1:48 PM Signed Kell from [facility] calling to report patient tremor is worse past few weeks. She can hardly hold a cup of coffee. Patient said the Lorazepam is not helping at all. Palliative Care had her taking Prednisone 50 mg daily for 5 days and she is back on her 10 mg daily dose now, was given that due to her Pulmonary Hypertension, her breathing is doing much better now. Patient had thought the shaky issues was her blood sugar but her fasting sugars have been in low 100's. Aware PCP is out of the office. Please advise Key Portillo APRN.HATCHERY MAN 09/28/2024 3:02 PM Signed Pt needs appointment to assess this. This was not mentioned in recent office visit 1 month ago. Thank you, Key Portillo APRN.Marisol Welsh LPN 09/28/2024 4:01 PM Signed Spoke with Kell gave information provided. She voices understanding. She will have pt call in for her appointment she does not know pts schedule. Allergies As of Date: 09/28/2024 Noted Allergy Reaction CIPROFLOXACIN 09/05/2018 2 - Rash DEMEROL (MEPERIDINE (PF)) 02/06/2011 11 - Vomiting OPIOIDS - MORPHINE ANALOGUES 03/17/2001 5 - Intolerance Comments: nausea, dizzy, sees things OPIOIDS-MEPERIDINE AND RELATED 02/17/2001 Comments: nausea/vomiting PENICILLIN G 02/17/2001 Comments: imani PRAVACHOL (PRAVASTATIN SODIUM) 03/09/2016 14 - Other: See Comments Comments: Leg cramps SULFA (SULFONAMIDE ANTIBIOTICS) 03/17/2001 Comments: imani VICODIN (HYDROCODONE-ACETAMINOPHE* 5 - Intolerance Comments: dizzy,nausea,vomiting,headac he ZITHROMAX (AZITHROMYCIN) 05/20/2017 5 - Intolerance Date Reviewed: 08/30/2024 Reviewed by: Julianna Cano LPN - Fully Assessed Reason for Visit: report tremor is worse [Other] Prescriptions as of 09/28/2024 - meloxicam (MOBIC) 15 mg tablet Take 1 tablet by mouth once daily. Take with food. - rOPINIRole (REQUIP) 1 mg tablet Take 1 tablet by mouth daily at bedtime. - blood sugar diagnostic test strip Use with blood glucose test 2 times daily, Insulin Dep? No - Lancets Use with blood glucose test 2 times daily. Insulin Dep? No - alcohol swabs Use with blood glucose test 2 times daily. Insulin Dep? No - PARoxetine (PAXIL) 40 mg tablet Take 1 tablet by mouth once daily. - furosemide (LASIX) 20 mg tablet Take 1 tablet by mouth once daily. - levothyroxine (SYNTHROID) 50 mcg tablet Take 1 tablet by mouth daily before breakfast. In the morning, Take on empty stomach at least 30 min before eating. For thyroid. - fluticasone-salmeterol (ADVAIR DISKUS) 250-50 mcg/dose inhaler Inhale 1 Puff as instructed two times a day. RINSE AND GARGLE MOUTH WITH WATER AFTER EACH USE. - Nebulizer Accessories kit 1 Kit as directed. - LORazepam (ATIVAN) 0.5 mg Take 1 tablet by mouth two times a day as needed (anxiety attack). - sucralfate (CARAFATE) 100 mg/mL suspension Take 10 mL by mouth four times daily. - Omeprazole Magnesium (PRILOSEC OTC) 20 mg tablet Take 1 tablet by mouth once daily. - cyanocobalamin (VITAMIN B-12) 1,000 mcg tab Take 1,000 mcg by mouth once daily. - spironolactone (ALDACTONE) 25 mg tablet Take 25 mg by mouth once daily. - hydrALAZINE (APRESOLINE) 25 mg tablet Take 50 mg by mouth two times a day at 6 am and 9 pm. - albuterol HFA (PROVENTIL HFA, VENTOLIN HFA) 90 mcg/actuation inhaler Inhale 2 Puffs as instructed every 4 hours as needed. - rosuvastatin (CRESTOR) 10 mg tablet Take 1 tablet by mouth daily at bedtime. - RESTASIS 0.05 % ophthalmic emulsion - Azelastine HCl (OPTIVAR) 0.05 % ophthalmic solution - aspirin, enteric coated (ASPIRIN, ENTERIC COATED) 81 mg EC tablet Take 81 mg by mouth once daily. - PACERONE 200 mg tablet Take 200 mg by mouth once daily. - ubidecarenone (COQ-10 ORAL) Take by mouth. - diltiazem CD (CARDIZEM CD) 240 mg 24 hr capsule Take 1 capsule by mouth once daily. Problem List As Of Date 09/28/2024 Noted Resolved MALIG MELANOMA TRUNK [C43.59] 02/17/2001 Melanoma of skin, site unspecified [C43.9] 01/09/2012 ALLERGIC RHINITIS NOS [J30.9] Other and unspecified hyperlipidemia [E78.5] 03/11/2015 Primary hypertension [I10] Unspecified gastritis and gastroduodenitis [535* 03/11/2015 Actinic keratosis [L57.0] 01/20/2007 03/11/2015 Other chronic dermatitis due to solar radiation*01/20/2007 01/09/2012 Scar condition and fibrosis of skin [L90.5] 01/20/2007 03/11/2015 SOLAR LENGINES///DYSCHROMIA OTHER [L81.9] 01/20/2007 01/09/2012 Other seborrheic keratosis [L82.1] 01/20/2007 01/09/2012 NEVUS///BENIGN COLIN SKIN TRUNK [D23.5] 01/20/2007 01/09/2012 NEVI///BENIGN COLIN SKIN FACE NEC [D23.30] 01/21/20 (more content not included)... Normal [facility] CNTHERAPYon 09-28-2024 CNTHERAPY OT/PT/Speech Visit ( LDPT) MICHAEL MEIER ([id number]) 1940 F Date Time Provider Department 09/28/24 2:15 PM SARAH MERCHANT LDPT Date Time Provider Department Center 09/28/2024 2:15 PM [id number], CARLA LDPT [facility] Reason for Visit: PT Eval [747] Primary Visit Diagnosis:Weakness [R53.1] Other Visit Diagnoses:Difficulty walking [R26.2] Abnormality of gait [R26.9] Imbalance [R26.89] Allergies As of Date: 09/28/2024 Noted Allergy Reaction CIPROFLOXACIN 09/05/2018 2 - Rash DEMEROL (MEPERIDINE (PF)) 02/06/2011 11 - Vomiting OPIOIDS - MORPHINE ANALOGUES 03/17/2001 5 - Intolerance Comments: nausea, dizzy, sees things OPIOIDS-MEPERIDINE AND RELATED 02/17/2001 Comments: nausea/vomiting PENICILLIN G 02/17/2001 Comments: imani PRAVACHOL (PRAVASTATIN SODIUM) 03/09/2016 14 - Other: See Comments Comments: Leg cramps SULFA (SULFONAMIDE ANTIBIOTICS) 03/17/2001 Comments: hives VICODIN (HYDROCODONE-ACETAMINOPHE* 5 - Intolerance Comments: dizzy,nausea,vomiting,headac he ZITHROMAX (AZITHROMYCIN) 05/20/2017 5 - Intolerance Date Reviewed: 08/30/2024 Reviewed by: Julianna Cano LPN - Fully Assessed Prescriptions as of 10/19/2024 - meloxicam (MOBIC) 15 mg tablet Take 1 tablet by mouth once daily. Take with food. - rOPINIRole (REQUIP) 1 mg tablet Take 1 tablet by mouth daily at bedtime. - blood sugar diagnostic test strip Use with blood glucose test 2 times daily, Insulin Dep? No - Lancets Use with blood glucose test 2 times daily. Insulin Dep? No - alcohol swabs Use with blood glucose test 2 times daily. Insulin Dep? No - PARoxetine (PAXIL) 40 mg tablet Take 1 tablet by mouth once daily. - furosemide (LASIX) 20 mg tablet Take 1 tablet by mouth once daily. - levothyroxine (SYNTHROID) 50 mcg tablet Take 1 tablet by mouth daily before breakfast. In the morning, Take on empty stomach at least 30 min before eating. For thyroid. - fluticasone-salmeterol (ADVAIR DISKUS) 250-50 mcg/dose inhaler Inhale 1 Puff as instructed two times a day. RINSE AND GARGLE MOUTH WITH WATER AFTER EACH USE. - Nebulizer Accessories kit 1 Kit as directed. - LORazepam (ATIVAN) 0.5 mg Take 1 tablet by mouth two times a day as needed (anxiety attack). - sucralfate (CARAFATE) 100 mg/mL suspension Take 10 mL by mouth four times daily. - Omeprazole Magnesium (PRILOSEC OTC) 20 mg tablet Take 1 tablet by mouth once daily. - cyanocobalamin (VITAMIN B-12) 1,000 mcg tab Take 1,000 mcg by mouth once daily. - spironolactone (ALDACTONE) 25 mg tablet Take 25 mg by mouth once daily. - hydrALAZINE (APRESOLINE) 25 mg tablet Take 50 mg by mouth two times a day at 6 am and 9 pm. - albuterol HFA (PROVENTIL HFA, VENTOLIN HFA) 90 mcg/actuation inhaler Inhale 2 Puffs as instructed every 4 hours as needed. - rosuvastatin (CRESTOR) 10 mg tablet Take 1 tablet by mouth daily at bedtime. - RESTASIS 0.05 % ophthalmic emulsion - Azelastine HCl (OPTIVAR) 0.05 % ophthalmic solution - aspirin, enteric coated (ASPIRIN, ENTERIC COATED) 81 mg EC tablet Take 81 mg by mouth once daily. - PACERONE 200 mg tablet Take 200 mg by mouth once daily. - ubidecarenone (COQ-10 ORAL) Take by mouth. - diltiazem CD (CARDIZEM CD) 240 mg 24 hr capsule Take 1 capsule by mouth once daily. Letter Text Normal [facility] CNPNon 09-08-2024 [facility] (FAM[facility] MICHAEL MEIER ([id number]) 1940 F Date Time Provider Department 09/08/24 MICHAEL PUGA [facility] During your visit today, we recorded the following information about you: Loli Adamson, RN 09/08/2024 10:46 AM Signed Davie Noguera- reports since pt has dx JOSE on CPAP, per medicare guidelines, pt would have to have sleep titration study to qualify for oxygen. States pt would not qualify for oxygen- with overnight pulse oximetry test per medicare guidelines. Please phone Jackelin with any questions: [phone] extension [phone] Michael Puga DO 09/08/2024 12:37 PM Signed Noted, is she willing to do this testing? DO Juan Diego Dow M Robin, RN 09/08/2024 1:38 PM Signed Phoned pt and explained what Poornima reported needed to be done per Medicare guidelines for her to qualify for oxygen. Pt reports she was in [facility] about a yr ago with pneumonia, and she had to have a sleep study done with Dr. Alcala to qualify for oxygen. Reports she had an oxygen concentrator for 6 weeks at that time. Asking if those sleep results would work for this? Asking where she would have to go for a titration study with F. Would like to know where [facility] does the study. If she doesn't want to go to that place then she will go back to Dr. Alcala. Pt states she is willing to do whatever pcp thinks she should do. Please advise pt. Amanda Pratt, GLYNN 09/08/2024 1:53 PM Signed Patient calls back to let provider know that Palliative Care has just ordered prednisone 20 mg daily to help open her airways. Patient reports that when she checks her pulse ox it is always in the high 90's. She can only think of two times that it dropped to 87 and 89 upon waking in the morning. She took some deep breaths and it came back up. Patient reports she hasn't been using oxygen and wondering if she really needs it since she is starting the Prednisone and not using the oxygen. GLYNN Montiel Jordan L, DO 09/08/2024 5:06 PM Signed Noted DO Juan Diego Dow M Robin, RN 09/14/2024 12:36 PM Signed Petra called to see if pcp was going to order the overnight pulse oximetry. Reviewed notes below with Petra with verbalized understanding. Allergies As of Date: 09/08/2024 Noted Allergy Reaction CIPROFLOXACIN 09/05/2018 2 - Rash DEMEROL (MEPERIDINE (PF)) 02/06/2011 11 - Vomiting OPIOIDS - MORPHINE ANALOGUES 03/17/2001 5 - Intolerance Comments: nausea, dizzy, sees things OPIOIDS-MEPERIDINE AND RELATED 02/17/2001 Comments: nausea/vomiting PENICILLIN G 02/17/2001 Comments: imani PRAVACHOL (PRAVASTATIN SODIUM) 03/09/2016 14 - Other: See Comments Comments: Leg cramps SULFA (SULFONAMIDE ANTIBIOTICS) 03/17/2001 Comments: hamidaes VICODIN (HYDROCODONE-ACETAMINOPHE* 5 - Intolerance Comments: dizzy,nausea,vomiting,headac he ZITHROMAX (AZITHROMYCIN) 05/20/2017 5 - Intolerance Date Reviewed: 08/30/2024 Reviewed by: Julianna Cano LPN - Fully Assessed Reason for Visit: Problem with order [Other] Prescriptions as of 09/14/2024 - meloxicam (MOBIC) 15 mg tablet Take 1 tablet by mouth once daily. Take with food. - rOPINIRole (REQUIP) 1 mg tablet Take 1 tablet by mouth daily at bedtime. - blood sugar diagnostic test strip Use with blood glucose test 2 times daily, Insulin Dep? No - Lancets Use with blood glucose test 2 times daily. Insulin Dep? No - alcohol swabs Use with blood glucose test 2 times daily. Insulin Dep? No - PARoxetine (PAXIL) 40 mg tablet Take 1 tablet by mouth once daily. - furosemide (LASIX) 20 mg tablet Take 1 tablet by mouth once daily. - levothyroxine (SYNTHROID) 50 mcg tablet Take 1 tablet by mouth daily before breakfast. In the morning, Take on empty stomach at least 30 min before eating. For thyroid. - fluticasone-salmeterol (ADVAIR DISKUS) 250-50 mcg/dose inhaler Inhale 1 Puff as instructed two times a day. RINSE AND GARGLE MOUTH WITH WATER AFTER EACH USE. - Nebulizer Accessories kit 1 Kit as directed. - LORazepam (ATIVAN) 0.5 mg Take 1 tablet by mouth two times a day as needed (anxiety attack). - sucralfate (CARAFATE) 100 mg/mL suspension Take 10 mL by mouth four times daily. - Omeprazole Magnesium (PRILOSEC OTC) 20 mg tablet Take 1 tablet by mouth once daily. - cyanocobalamin (VITAMIN B-12) 1,000 mcg tab Take 1,000 mcg by mouth once daily. - spironolactone (ALDACTONE) 25 mg tablet Take 25 mg by mouth once daily. - hydrALAZINE (APRESOLINE) 25 mg tablet Take 50 mg by mouth two times a day at 6 am and 9 pm. - albuterol HFA (PROVENTIL HFA, VENTOLIN HFA) 90 mcg/actuation inhaler Inhale 2 Puffs as instructed every 4 hours as needed. - rosuvastatin (CRESTOR) 10 mg tablet Take 1 tablet by mouth daily at bedtime. - RESTASIS 0.05 % ophthalmic emulsion - Azelastine HCl (OPTIVAR) 0.05 % ophthalmic solution - aspirin, e (more content not included)... Normal [facility]05[facility]20[facility] MICHAEL MEIER ([id number]) 1940 F Date Time Provider Department 09/05/24 MICHAEL PUGA [facility] During your visit today, we recorded the following information about you: Bhavna Arauz RN 09/05/2024 11:48 AM Signed Patient calls and states that palliative care nurse had just visited patient. Palliative nurse had told patient that patient would benefit to have oxygen at night. Patient state that nurse had told patient to call office about this. Please review and advise, GLYNN Bonilla Jordan L, DO 09/05/2024 5:36 PM Signed Please clarify with more information What recommendation? Would need to have nighttime oximetry testing for me to order oxygen by insurance DO Rachael Dow Susan LPN 09/06/2024 1:12 PM Signed Pt. informed and would like to get the nighttime Oximetry. Bhavna Arauz RN 09/07/2024 11:18 AM Signed Petra NOLASCO from [facility] calls and is asking status of request. When order is placed, please fax order to [employer]. Please place order for nighttime pulsometry test and fax to [employer]. Please review and advise, GLYNN Bonilla Rebekah, APRN.CNP 09/07/2024 1:33 PM Signed I placed the order best I know how to. Please fax per below request. Asia Rosales APRN.Jacque Arrieta MA 09/08/2024 8:16 AM Signed Please print script ALEX Arenas Rebekah, APRN.CNP 09/08/2024 8:23 AM Signed It's in the outbox in my office. Asia Rosales APRN.Jacque Arrieta MA 09/08/2024 8:52 AM Signed Faxed Jacque Holiday, [place] Allergies As of Date: 09/05/2024 Noted Allergy Reaction CIPROFLOXACIN 09/05/2018 2 - Rash DEMEROL (MEPERIDINE (PF)) 02/06/2011 11 - Vomiting OPIOIDS - MORPHINE ANALOGUES 03/17/2001 5 - Intolerance Comments: nausea, dizzy, sees things OPIOIDS-MEPERIDINE AND RELATED 02/17/2001 Comments: nausea/vomiting PENICILLIN G 02/17/2001 Comments: hives PRAVACHOL (PRAVASTATIN SODIUM) 03/09/2016 14 - Other: See Comments Comments: Leg cramps SULFA (SULFONAMIDE ANTIBIOTICS) 03/17/2001 Comments: hives VICODIN (HYDROCODONE-ACETAMINOPHE* 5 - Intolerance Comments: dizzy,nausea,vomiting,headac he ZITHROMAX (AZITHROMYCIN) 05/20/2017 5 - Intolerance Date Reviewed: 08/30/2024 Reviewed by: Julianna Cano LPN - Fully Assessed Reason for Visit: Patient Question [3247] Primary Visit Diagnosis:Congestive heart failure, unspecified HF chronicity, unspecified heart failure type (HCC) [I50.9] Other Visit Diagnoses:Obstructive lung disease (HCC) [J44.9] Chronic respiratory failure with hypoxia (HCC) [J96.11] Order(s):NONINVASV OXYGEN SATUR;SINGLE [[id number]] Order #: [id number] Prescriptions as of 09/08/2024 - rOPINIRole (REQUIP) 1 mg tablet Take 1 tablet by mouth daily at bedtime. - blood sugar diagnostic test strip Use with blood glucose test 2 times daily, Insulin Dep? No - Lancets Use with blood glucose test 2 times daily. Insulin Dep? No - alcohol swabs Use with blood glucose test 2 times daily. Insulin Dep? No - PARoxetine (PAXIL) 40 mg tablet Take 1 tablet by mouth once daily. - furosemide (LASIX) 20 mg tablet Take 1 tablet by mouth once daily. - levothyroxine (SYNTHROID) 50 mcg tablet Take 1 tablet by mouth daily before breakfast. In the morning, Take on empty stomach at least 30 min before eating. For thyroid. - fluticasone-salmeterol (ADVAIR DISKUS) 250-50 mcg/dose inhaler Inhale 1 Puff as instructed two times a day. RINSE AND GARGLE MOUTH WITH WATER AFTER EACH USE. - Nebulizer Accessories kit 1 Kit as directed. - LORazepam (ATIVAN) 0.5 mg Take 1 tablet by mouth two times a day as needed (anxiety attack). - sucralfate (CARAFATE) 100 mg/mL suspension Take 10 mL by mouth four times daily. - Omeprazole Magnesium (PRILOSEC OTC) 20 mg tablet Take 1 tablet by mouth once daily. - cyanocobalamin (VITAMIN B-12) 1,000 mcg tab Take 1,000 mcg by mouth once daily. - spironolactone (ALDACTONE) 25 mg tablet Take 25 mg by mouth once daily. - hydrALAZINE (APRESOLINE) 25 mg tablet Take 50 mg by mouth two times a day at 6 am and 9 pm. - albuterol HFA (PROVENTIL HFA, VENTOLIN HFA) 90 mcg/actuation inhaler Inhale 2 Puffs as instructed every 4 hours as needed. - meloxicam (MOBIC) 15 mg tablet Take 1 tablet by mouth once daily. Take with food. - rosuvastatin (CRESTOR) 10 mg tablet Take 1 tablet by mouth daily at bedtime. - RESTASIS 0.05 % ophthalmic emulsion - Azelastine HCl (OPTIVAR) 0.05 % ophthalmic solution - aspirin, enteric coated (ASPIRIN, ENTERIC COATED) 81 mg EC tablet Take 81 mg by mouth once daily. - PACERONE 200 mg tablet Take 200 mg by mouth once daily. - ubidecarenone (COQ-10 ORAL) Take by mouth. - diltiazem CD (CARDIZEM CD) 240 mg 24 hr capsule Take 1 capsule by mouth once daily. Problem List As Of Date 09/05/2024 Noted Resolv (more content not included)... Normal [facility] CNOVon 08-30-2024 CNOV Office Visit (FAMPWS ) MICHAEL MEIER ([id number]) 1940 F Date Time Provider Department 08/30/24 3:00 PM MICHAEL PUGA During your visit today, we recorded the following information about you: Temperature Pulse Respiration Blood pressure 97 degrees 64/minute 20/minute 148/64 Weight 104.3 kg Michael Puga, 08/30/2024 10:10 PM Signed CC: Michael Meier is a 84 year old female who presents to the office for follow up HPI: Seen in the office 1 week ago on 08/17/24 by Kami Rosales CNP as below Paxil 20mg- tolerating well. Feels very tired, sleepy, I don't care type feelings. States her medication does help with these symptoms but they have been slowly getting worse for a while now. Would like to increase her dose. Requesting palliative care consult secondary to her CHF, pulmonary HTN. Currently She is present with her friend Caryn in the office today She is using a rollator walker at home for balance and ambulation She has been recently seen by Orthopedics for left leg and hip concerns- diagnosed with significant muscle atrophy- specialist didn't feel she could much improve this with PHYSICAL THERAPY She is having some symptoms of feeling LH and off my normal as well as occasional blurring of vision in the morning on an intermittent basis when waking up and before she eats. No syncope, no chest pressure. Has chronic dyspnea due to her CHF history. Hasn't been on oxygen and not interested in being assessed for this at this time. PAST MEDICAL HISTORY Diagnosis Date A-fib (HCC) Allergic rhinitis, cause unspecified Arrhythmia Arthritis Greater trochanteric bursitis of left hip Melanoma of skin, site unspecified 2003 back Osteoarthritis of left hip Other and unspecified hyperlipidemia Pulmonary hypertension (HCC) Situational mixed anxiety and depressive disorder Sleep apnea Stroke (HCC) Unspecified essential hypertension Unspecified gastritis and gastroduodenitis PAST SURGICAL HISTORY Procedure Laterality Date ABDOMINAL SURGERY HX APPENDECTOMY HX ARTHRP ACETBLR/PROX FEM PROSTC AGRFT/ALGRFT 12/09/2003 right hip, redone, 07/2004 ARTHRP ACETBLR/PROX FEM PROSTC AGRFT/ALGRFT Left 07/2016 ARTHRP KATIE CONDYLEANDPLATU MEDIALANDLAT COMPARTMENTS 11/15/2009 Knee replacement, total -Left - [facility] ARTHRP BARRYE CONDYLEANDPLATU MEDIALANDLAT COMPARTMENTS 12/30/2009 Right knee replaced COLONOSCOPY FLX DX W/COLLJ SPEC WHEN PFRMD 06/29/2017 Colonoscopy EGD 10/17/2020 EGD W/O [facility] SPEC VARICIES INJ 01/08/2022 EGD W/O [facility] SPEC VARICIES INJ 03/31/2024 [place] ESOPHAGOGASTRODUODENOSCOPY TRANSORAL DIAGNOSTIC 11/29/2000 EGD ESOPHAGOGASTRODUODENOSCOPY TRANSORAL DIAGNOSTIC 06/29/2017 EGD JOINT REPLACEMENT HX LAPS SURG CHOLECYSTECTOMY W/CHOLANGIOGRAPHY PACEMAKER IMPLANT 01/2011 SKIN BIOPSY HX TONSILLECTOMY HX TOTAL ABDOMINAL HYSTERECT W/WO RMVL TUBE OVARY Hysterectomy, GAL Current Outpatient Medications Medication Sig rOPINIRole (REQUIP) 1 mg tablet Take 1 tablet by mouth daily at bedtime. blood sugar diagnostic test strip Use with blood glucose test 2 times daily, Insulin Dep? No Lancets Use with blood glucose test 2 times daily. Insulin Dep? No alcohol swabs Use with blood glucose test 2 times daily. Insulin Dep? No PARoxetine (PAXIL) 40 mg tablet Take 1 tablet by mouth once daily. furosemide (LASIX) 20 mg tablet Take 1 tablet by mouth once daily. levothyroxine (SYNTHROID) 50 mcg tablet Take 1 tablet by mouth daily before breakfast. In the morning, Take on empty stomach at least 30 min before eating. For thyroid. fluticasone-salmeterol (ADVAIR DISKUS) 250-50 mcg/dose inhaler Inhale 1 Puff as instructed two times a day. RINSE AND GARGLE MOUTH WITH WATER AFTER EACH USE. Nebulizer Accessories kit 1 Kit as directed. LORazepam (ATIVAN) 0.5 mg Take 1 tablet by mouth two times a day as needed (anxiety attack). sucralfate (CARAFATE) 100 mg/mL suspension Take 10 mL by mouth four times daily. Omeprazole Magnesium (PRILOSEC OTC) 20 mg tablet Take 1 tablet by mouth once daily. cyanocobalamin (VITAMIN B-12) 1,000 mcg tab Take 1,000 mcg by mouth once daily. spironolactone (ALDACTONE) 25 mg tablet Take 25 mg by mouth once daily. hydrALAZINE (APRESOLINE) 25 mg tablet Take 50 mg by mouth two times a day at 6 am and 9 pm. albuterol HFA (PROVENTIL HFA, VENTOLIN HFA) 90 mcg/actuation inhaler Inhale 2 Puffs as instructed every 4 hours as needed. meloxicam (MOBIC) 15 mg tablet Take 1 tablet by mouth once daily. Take with food. rosuvastatin (CRESTOR) 10 mg tablet Take 1 tablet by mouth daily at bedtime. RESTASIS 0.05 % ophthalmic emulsion Azelastine HCl (OPTIVAR) 0.05 % ophthalmic solution aspirin, enteric coated (ASPIRIN, ENTERIC COATED) 81 mg EC tablet Take 81 mg by mouth once daily. PACERONE 200 mg tablet Ta (more content not included)... Normal [facility] HEMOGLOBIN A1C (POC)on 08-30 HbA1c (Bld) [Mass fraction] 5.2 % 4.3 - 5.6 % [facility] Comment on above: Location:[address], [place], [address] Point of care (POC) Hemoglobin A1c (HGBA1C) testing is intended to assess glucose control and provide a management tool for patients known to have diabetes and their healthcare providers. Target HGBA1C levels may depend on specific clinical circumstances. POC HGBA1C is not intended for use as a diagnostic or screening test; laboratory-based testing should be used for diagnostic purposes. The following information is supplemental and may not be applicable to specific diabetes management situations: The POC device patient registration rep provides a normal range of 4.2% to 6.5% for the HGBA1C POC test. However, the [place] [employer] guidelines indicate that patients with HGBA1C in the range of 5.7% to 6.4% are at increased risk for development of diabetes and that intervention by lifestyle modification may be beneficial. A HGBA1C level greater than or equal to 6.5% is considered diagnostic of diabetes, pending confirmatory testing. Use of HGBA1C testing to evaluate glucose control may not be appropriate for patients with hemoglobin variants or other conditions (e.g. anemia) that alter red blood cell lifespan. [facility] Priscila 08-25-2024 [facility]phone [facility] HARDEEPMICHAEL ([id number]) 1940 F Date Time Provider Department 08/25/24 ASIA ROSALES During your visit today, we recorded the following information about you: Ruba Argueta LPN 08/25/2024 9:35 AM Signed Petra from Replaced By [facility] calling stating that the referral for Palliative Care be faxed to [facility] at [phone]. Referral and office visit faxed as requested. Allergies As of Date: 08/25/2024 Noted Allergy Reaction CIPROFLOXACIN 09/05/2018 2 - Rash DEMEROL (MEPERIDINE (PF)) 02/06/2011 11 - Vomiting OPIOIDS - MORPHINE ANALOGUES 03/17/2001 5 - Intolerance Comments: nausea, dizzy, sees things OPIOIDS-MEPERIDINE AND RELATED 02/17/2001 Comments: nausea/vomiting PENICILLIN G 02/17/2001 Comments: imani PRAVACHOL (PRAVASTATIN SODIUM) 03/09/2016 14 - Other: See Comments Comments: Leg cramps SULFA (SULFONAMIDE ANTIBIOTICS) 03/17/2001 Comments: imani VICODIN (HYDROCODONE-ACETAMINOPHE* 5 - Intolerance Comments: dizzy,nausea,vomiting,headac he ZITHROMAX (AZITHROMYCIN) 05/20/2017 5 - Intolerance Date Reviewed: 08/17/2024 Reviewed by: Jacque Machuca MA - Fully Assessed Reason for Visit: Consult [502] Prescriptions as of 08/25/2024 - PARoxetine (PAXIL) 40 mg tablet Take 1 tablet by mouth once daily. - furosemide (LASIX) 20 mg tablet Take 1 tablet by mouth once daily. - levothyroxine (SYNTHROID) 50 mcg tablet Take 1 tablet by mouth daily before breakfast. In the morning, Take on empty stomach at least 30 min before eating. For thyroid. - fluticasone-salmeterol (ADVAIR DISKUS) 250-50 mcg/dose inhaler Inhale 1 Puff as instructed two times a day. RINSE AND GARGLE MOUTH WITH WATER AFTER EACH USE. - Nebulizer Accessories kit 1 Kit as directed. - LORazepam (ATIVAN) 0.5 mg Take 1 tablet by mouth two times a day as needed (anxiety attack). - rOPINIRole (REQUIP) 1 mg tablet Take 1 tablet by mouth daily at bedtime. - sucralfate (CARAFATE) 100 mg/mL suspension Take 10 mL by mouth four times daily. - Omeprazole Magnesium (PRILOSEC OTC) 20 mg tablet Take 1 tablet by mouth once daily. - cyanocobalamin (VITAMIN B-12) 1,000 mcg tab Take 1,000 mcg by mouth once daily. - spironolactone (ALDACTONE) 25 mg tablet Take 25 mg by mouth once daily. - hydrALAZINE (APRESOLINE) 25 mg tablet Take 50 mg by mouth two times a day at 6 am and 9 pm. - albuterol HFA (PROVENTIL HFA, VENTOLIN HFA) 90 mcg/actuation inhaler Inhale 2 Puffs as instructed every 4 hours as needed. - meloxicam (MOBIC) 15 mg tablet Take 1 tablet by mouth once daily. Take with food. - rosuvastatin (CRESTOR) 10 mg tablet Take 1 tablet by mouth daily at bedtime. - RESTASIS 0.05 % ophthalmic emulsion - Azelastine HCl (OPTIVAR) 0.05 % ophthalmic solution - aspirin, enteric coated (ASPIRIN, ENTERIC COATED) 81 mg EC tablet Take 81 mg by mouth once daily. - PACERONE 200 mg tablet Take 200 mg by mouth once daily. - ubidecarenone (COQ-10 ORAL) Take by mouth. - diltiazem CD (CARDIZEM CD) 240 mg 24 hr capsule Take 1 capsule by mouth once daily. Problem List As Of Date 08/25/2024 Noted Resolved MALIG MELANOMA TRUNK [C43.59] 02/17/2001 Melanoma of skin, site unspecified [C43.9] 01/09/2012 ALLERGIC RHINITIS NOS [J30.9] Other and unspecified hyperlipidemia [E78.5] 03/11/2015 Primary hypertension [I10] Unspecified gastritis and gastroduodenitis [535* 03/11/2015 Actinic keratosis [L57.0] 01/20/2007 03/11/2015 Other chronic dermatitis due to solar radiation*01/20/2007 01/09/2012 Scar condition and fibrosis of skin [L90.5] 01/20/2007 03/11/2015 SOLAR LENGINES///DYSCHROMIA OTHER [L81.9] 01/20/2007 01/09/2012 Other seborrheic keratosis [L82.1] 01/20/2007 01/09/2012 NEVUS///BENIGN COLIN SKIN TRUNK [D23.5] 01/20/2007 01/09/2012 NEVI///BENIGN COLIN SKIN FACE NEC [D23.30] 01/20/2007 01/09/2012 SEBACEOUS HYPERPLASIA///SEBACEOUS GLAND DIS NOS*01/20/2007 01/09/2012 DYSMETABOLIC SYNDROME X [E88.810] 07/12/2007 A-fib (HCC) [I48.91] 10/08/2010 03/11/2015 Personal history of malignant melanoma of skin *02/08/2011 Actinic skin damage [L57.8] 01/09/2012 03/11/2015 Solar Lentigines [L81.4] 01/09/2012 03/11/2015 Surgical Scars [L90.5] 01/09/2012 03/11/2015 Irriated//Inflamed Seborrheic Keratoses [L82.0] 12/01/2013 03/11/2015 Other Seborrheic Keratoses [L82.1] 12/01/2013 03/11/2015 Xerosis cutis [L85.3] 12/01/2013 03/11/2015 Cutaneous skin tags [L91.8] 12/01/2013 03/11/2015 Hyperlipidemia [E78.5] 03/11/2015 08/16/2015 Paroxysmal atrial fibrillation (HCC) [I48.0] 03/11/2015 BMI 37.0-37.9, adult [Z68.37] 03/11/2015 08/16/2015 BMI 38.0-38.9,adult [Z68.38] 08/16/2015 Daytime somnolence [R40.0] 08/16/2015 Hyperlipidemia [E78.5] 10/25/2015 JOSE on CPAP [G47.33] 03/09/2016 Anxiety [F41.9] 11/10/2016 Elevated fasting blood sugar [R73.01] 11/10/2016 Mixed stress and urg (more content not included)... Normal [facility] CNOVon 08-17-2024 CNOV Office Visit (FAMPWS ) MICHAEL MEIER ([id number]) 1940 F Date Time Provider Department 08/17/24 3:20 PM ASIA ROSALES During your visit today, we recorded the following information about you: Pulse Blood pressure 61/minute 136/68 Asia Rosales, MIRINA.HATCHERY MAN 08/18/2024 8:27 AM Signed Chief Complaint Patient presents with: Medication Follow-up: Increase paxil HPI Michaelalex Meier is a 84 year old female who presents here today for Above Complaints.. Paxil 20mg- tolerating well. Feels very tired, sleepy, I don't care type feelings. States her medication does help with these symptoms but they have been slowly getting worse for a while now. Would like to increase her dose. Requesting palliative care consult secondary to her CHF, pulmonary HTN. Past medical history, appointments, medications, allergies reviewed. Previous Medical History PAST MEDICAL HISTORY Diagnosis Date A-fib (HCC) Allergic rhinitis, cause unspecified Arrhythmia Arthritis Greater trochanteric bursitis of left hip Melanoma of skin, site unspecified 2003 back Osteoarthritis of left hip Other and unspecified hyperlipidemia Pulmonary hypertension (HCC) Situational mixed anxiety and depressive disorder Sleep apnea Stroke (HCC) Unspecified essential hypertension Unspecified gastritis and gastroduodenitis Previous Surgical History PAST SURGICAL HISTORY Procedure Laterality Date ABDOMINAL SURGERY HX APPENDECTOMY HX ARTHRP ACETBLR/PROX FEM PROSTC AGRFT/ALGRFT 12/09/2003 right hip, redone, 07/2004 ARTHRP ACETBLR/PROX FEM PROSTC AGRFT/ALGRFT Left 07/2016 ARTHRP BARRYE CONDYLEANDPLATU MEDIALANDLAT COMPARTMENTS 11/15/2009 Knee replacement, total -Left - [facility] ARTHRP KNE CONDYLEANDPLATU MEDIALANDLAT COMPARTMENTS 12/30/2009 Right knee replaced COLONOSCOPY FLX DX W/COLLJ SPEC WHEN PFRMD 06/29/2017 Colonoscopy EGD 10/17/2020 EGD W/O [facility] SPEC VARICIES INJ 01/08/2022 EGD W/O [facility] SPEC VARICIES INJ 03/31/2024 [place] ESOPHAGOGASTRODUODENOSCOPY TRANSORAL DIAGNOSTIC 11/29/2000 EGD ESOPHAGOGASTRODUODENOSCOPY TRANSORAL DIAGNOSTIC 06/29/2017 EGD JOINT REPLACEMENT HX LAPS SURG CHOLECYSTECTOMY W/CHOLANGIOGRAPHY PACEMAKER IMPLANT 01/2011 SKIN BIOPSY HX TONSILLECTOMY HX TOTAL ABDOMINAL HYSTERECT W/WO RMVL TUBE OVARY Hysterectomy, GAL Family History FAMILY HISTORY Problem Relation Age of Onset Coronary Artery Disease Mother other (cardiac arrest) Mother Coronary Artery Disease Father Diabetes Father other (congestive heart failure) Father Patient Allergies ALLERGIES Allergen Reactions Ciprofloxacin Rash Demerol [Meperidine* Vomiting Opioids - Morphine * Intolerance nausea, dizzy, sees things Opioids-Meperidine * nausea/vomiting Penicillin G hives Pravachol [Pravasta* Other: See Comments Leg cramps Sulfa (Sulfonamide * hives Vicodin [Hydrocodon* Intolerance dizzy,nausea,vomiting,headac he Zithromax [Azithrom* Intolerance Current Medications Current Outpatient Medications on File Prior to Visit Medication Sig levothyroxine (SYNTHROID) 50 mcg tablet Take 1 tablet by mouth daily before breakfast. In the morning, Take on empty stomach at least 30 min before eating. For thyroid. fluticasone-salmeterol (ADVAIR DISKUS) 250-50 mcg/dose inhaler Inhale 1 Puff as instructed two times a day. RINSE AND GARGLE MOUTH WITH WATER AFTER EACH USE. Nebulizer Accessories kit 1 Kit as directed. hydroCHLOROthiazide 12.5 mg capsule Take 1 capsule by mouth once daily. (Patient not taking: Reported on 08/17/2024) LORazepam (ATIVAN) 0.5 mg Take 1 tablet by mouth two times a day as needed (anxiety attack). rOPINIRole (REQUIP) 1 mg tablet Take 1 tablet by mouth daily at bedtime. PARoxetine (PAXIL) 20 mg tablet Take 1 tablet by mouth once daily. In the evening sucralfate (CARAFATE) 100 mg/mL suspension Take 10 mL by mouth four times daily. Omeprazole Magnesium (PRILOSEC OTC) 20 mg tablet Take 1 tablet by mouth once daily. cyanocobalamin (VITAMIN B-12) 1,000 mcg tab Take 1,000 mcg by mouth once daily. spironolactone (ALDACTONE) 25 mg tablet Take 25 mg by mouth once daily. hydrALAZINE (APRESOLINE) 25 mg tablet Take 50 mg by mouth two times a day at 6 am and 9 pm. albuterol HFA (PROVENTIL HFA, VENTOLIN HFA) 90 mcg/actuation inhaler Inhale 2 Puffs as instructed every 4 hours as needed. meloxicam (MOBIC) 15 mg tablet Take 1 tablet by mouth once daily. Take with food. rosuvastatin (CRESTOR) 10 mg tablet Take 1 tablet by mouth daily at bedtime. guaiFENesin (MUCINEX) 600 mg 12 hr tablet Take 1 tablet by mouth two times a day as needed for cold/allergy symptoms. (Patient not taking: Reported on 05/11/2024) RESTASIS 0.05 % ophthalmic emulsion Azelastine HCl (OPTIVAR) 0.05 % ophthalmic solution aspirin, enteric coated (ASPIRIN, ENTERIC COATED (more content not included)... [facility] MICHAEL MEIER ([id number]) 1940 F Date Time Provider Department 08/16/24 [facility] PU[facility] During your visit today, we recorded the following information about you: Loli Adamson, RN 08/16/2024 1:46 PM Signed [facility]- reports she is seeing patient and spoke with patient today. Patient reports to she is depressed and feels she needs increase in her paxil medication. reports patient has lack of motivation, and is not motivated to do things she needs to do. Reports pt has CHF and will not do daily weights. Patient has COPD with SOB also. Reports patient does not have anxiety- pt is very calm. Pt has depression for a lot of reasons that include not able to get out and do things she use to do due to SOB and CHF. Petra reports pt is not having thoughts of suicide. Petra talked with patient about palliative care, and patient stated she is open to trying palliative care. Petra asking if patient can come in to see provider to get increase on her paxil. Pt has appt with pcp on 08/30/24 and Petra asking pcp to discuss palliative care with pt at the appt. Dahiana plans to f/u with patient next week. This nurse phoned patient and scheduled appt with Soil Analyst for tomorrow to see if Soil Analyst can increase patient's paxil. Asia Rosales APRN.HATCHERY MAN 08/18/2024 2:37 PM Signed I saw her in the office yesterday 08/17 and these concerns were addressed. Asia Rosales APRN.HATCHERY MAN Allergies As of Date: 08/16/2024 Noted Allergy Reaction CIPROFLOXACIN 09/05/2018 2 - Rash DEMEROL (MEPERIDINE (PF)) 02/06/2011 11 - Vomiting OPIOIDS - MORPHINE ANALOGUES 03/17/2001 5 - Intolerance Comments: nausea, dizzy, sees things OPIOIDS-MEPERIDINE AND RELATED 02/17/2001 Comments: nausea/vomiting PENICILLIN G 02/17/2001 Comments: hives PRAVACHOL (PRAVASTATIN SODIUM) 03/09/2016 14 - Other: See Comments Comments: Leg cramps SULFA (SULFONAMIDE ANTIBIOTICS) 03/17/2001 Comments: hives VICODIN (HYDROCODONE-ACETAMINOPHE* 5 - Intolerance Comments: dizzy,nausea,vomiting,headac he ZITHROMAX (AZITHROMYCIN) 05/20/2017 5 - Intolerance Date Reviewed: 05/11/2024 Reviewed by: Marisol Cano LPN - Fully Assessed Reason for Visit: Patient Update [1234] Prescriptions as of 08/18/2024 - PARoxetine (PAXIL) 40 mg tablet Take 1 tablet by mouth once daily. - furosemide (LASIX) 20 mg tablet Take 1 tablet by mouth once daily. - levothyroxine (SYNTHROID) 50 mcg tablet Take 1 tablet by mouth daily before breakfast. In the morning, Take on empty stomach at least 30 min before eating. For thyroid. - fluticasone-salmeterol (ADVAIR DISKUS) 250-50 mcg/dose inhaler Inhale 1 Puff as instructed two times a day. RINSE AND GARGLE MOUTH WITH WATER AFTER EACH USE. - Nebulizer Accessories kit 1 Kit as directed. - LORazepam (ATIVAN) 0.5 mg Take 1 tablet by mouth two times a day as needed (anxiety attack). - rOPINIRole (REQUIP) 1 mg tablet Take 1 tablet by mouth daily at bedtime. - sucralfate (CARAFATE) 100 mg/mL suspension Take 10 mL by mouth four times daily. - Omeprazole Magnesium (PRILOSEC OTC) 20 mg tablet Take 1 tablet by mouth once daily. - cyanocobalamin (VITAMIN B-12) 1,000 mcg tab Take 1,000 mcg by mouth once daily. - spironolactone (ALDACTONE) 25 mg tablet Take 25 mg by mouth once daily. - hydrALAZINE (APRESOLINE) 25 mg tablet Take 50 mg by mouth two times a day at 6 am and 9 pm. - albuterol HFA (PROVENTIL HFA, VENTOLIN HFA) 90 mcg/actuation inhaler Inhale 2 Puffs as instructed every 4 hours as needed. - meloxicam (MOBIC) 15 mg tablet Take 1 tablet by mouth once daily. Take with food. - rosuvastatin (CRESTOR) 10 mg tablet Take 1 tablet by mouth daily at bedtime. - RESTASIS 0.05 % ophthalmic emulsion - Azelastine HCl (OPTIVAR) 0.05 % ophthalmic solution - aspirin, enteric coated (ASPIRIN, ENTERIC COATED) 81 mg EC tablet Take 81 mg by mouth once daily. - PACERONE 200 mg tablet Take 200 mg by mouth once daily. - ubidecarenone (COQ-10 ORAL) Take by mouth. - diltiazem CD (CARDIZEM CD) 240 mg 24 hr capsule Take 1 capsule by mouth once daily. Problem List As Of Date 08/16/2024 Noted Resolved MALIG MELANOMA TRUNK [C43.59] 02/17/2001 Melanoma of skin, site unspecified [C43.9] 01/09/2012 ALLERGIC RHINITIS NOS [J30.9] Other and unspecified hyperlipidemia [E78.5] 03/11/2015 Primary hypertension [I10] Unspecified gastritis and gastroduodenitis [535* 03/11/2015 Actinic keratosis [L57.0] 01/20/2007 03/11/2015 Other chronic dermatitis due to solar radiation*01/20/2007 01/09/2012 Scar condition and fibrosis of skin [L90.5] 01/20/2007 03/11/2015 SOLAR LENGINES///DYSCHROMIA OTHER [L81.9] 01/20/2007 01/09/2012 Other seborrheic keratosis [L82.1] 01/20/2007 01/09/2012 NEVUS///BENIGN COLIN SKIN TRUNK [D23.5] 01/20/2007 01/09/2012 NEVI///BENIGN COLIN SKIN FACE NEC (more content not included)... Normal [facility] Anion gap in Serum or Plasma Ordered By: Anabel Horne on 07-07-2024 Anion gap [Moles/Vol] 20 mmol/L High - [facility] BUN/creatinine ratioOrdered By: Anabel Horne on 07-07-2024 Urea nitrogen/Creatinine [Mass ratio] 26.5 mg/mg High [facility] Basic Metabolic Profile (BMP )on 07-07-2024 BUN/CRE 26.5 RATIO High [facility] Comment on above: Performed By: #### L 500.2500 #### [facility] Laboratory [address] [facility] [address] Calcium [Mass/Vol] 9.5 mg/dL Normal 7.6-11.0 [facility] Comment on above: Performed By: #### L 500.2500 #### [facility] [address] [place], [address] Chloride [Moles/Vol] 97 mmol/L Low 98-108 [facility] Comment on above: Performed By: #### L 500.2500 #### [facility] [address] [facility] [address] CO2 [Moles/Vol] 19.7 mmol/L Low 21.0-32.0 [facility] Comment on above: Performed By: #### L 500.2500 #### [facility] [address] [place], [address] Creatinine [Mass/Vol] 1.30 mg/dL High 0.70-1.20 [facility] Comment on above: Performed By: #### L 500.2500 #### [facility] [address] [place], [address] GAP 20 High 5-15 [facility] Comment on above: Performed By: #### L 500.2500 #### [facility] [address] [place], [address] GFR/1.73 sq M.predicted among non-blacks MDRD (S/P/Bld) [Vol rate/Area] 41 mL/min/{1.73_m2} Low >60 [facility] Comment on above: Result Comment: mL/m in/1.73m2 CKD-EPI Creatinine Equation (2020) Performed By: #### L 500.2500 #### [facility] [address] [place], [address] Glucose [Mass/Vol] 99 mg/dL Normal 70-99 [facility] Comment on above: Performed By: #### L 500.2500 #### [facility] [address] [place], [address] Potassium [Moles/Vol] 4.3 mmol/L Normal 3.3-5.1 [facility] Comment on above: Performed By: #### L 500.2500 #### [facility] [address] [place], [address] Sodium [Moles/Vol] 137 mmol/L Normal 133-145 [facility] Comment on above: Performed By: #### L 500.2500 #### [facility] [address] [place], [address] Urea nitrogen [Mass/Vol] 35 mg/dL High 4-19 [facility] Comment on above: Performed By: #### L 500.2500 #### [facility] [address] [place], [address] Carbon dioxide, total [Moles /volume] in Central venous bloodOrdered By: Anabel Horne on 07-07-2024 CO2 [Moles/Vol] 19.7 mmol/L Low 21.0-32.0 [facility] Chloride assayOrdered By: Sugey Horne on 07-07-2024 Chloride [Moles/Vol] 97 mmol/L Low 98-108 [facility] GFR/1.73 sq M.predicted herve g non-blacks MDRD (S/P/Bld) [Vol rate/Area]Ordered By: Anabel Horne on 07-07-2024 Estimated GFR (MDRD) Non-Af Amer 41 Low >60 [facility] Comment on above: mL/min/1.73m2 CKD-EP I Creatinine Equation (2020) Glomerular filtration rate ( GFR) estimation/1.73 sq m using serum, plasma, or whole bOrdered By: Anabel Horne on 07-07-2024 GFR/1.73 sq M.predicted among non-blacks MDRD (S/P/Bld) [Vol rate/Area] 41 mL/min/{1.73_m2} Low >60 [facility] Comment on above: mL/min/1.73m2 CKD-EP I Creatinine Equation (2020) Potassium (Unsp spec) [Mass/ Vol]Ordered By: Anabel Horne on 07-07-2024 Potassium [Moles/Vol] 4.3 mmol/L 3.3-5.1 [facility] Potassium measurement (mass/ volume)Ordered By: Anabel Horne on 07-07-2024 Potassium (Unsp spec) [Mass/Vol] 4.3 mmol/L 3.3-5.1 [facility] Serum creatinine measurement (mass/volume)Ordered By: Anabel Horne on 07-07-2024 Creatinine [Mass/Vol] 1.30 mg/dL High 0.70-1.20 [facility] Serum glucose measurement (m ass/volume)Ordered By: Anabel Horne on 07-07-2024 Glucose [Mass/Vol] 99 mg/dL 70-99 [facility] Serum or plasma calcium julee urement (mass/volume)Ordered By: Anabel Horne on 07-07-2024 Calcium [Mass/Vol] 9.5 mg/dL 7.6-11.0 [facility] Serum or plasma urea nitroge n measurement (mass/volume)Ordered By: Anabel Horne on 07-07-2024 Urea nitrogen [Mass/Vol] 35 mg/dL High 4-19 [facility] Sodium levelOrdered By: Thien Horne on 07-07-2024 Sodium [Moles/Vol] 137 mmol/L 133-145 [facility] Carotid Duplex Ultrasoundon 07-03-2024 Carotid Duplex Ultrasound [facility] [address] [place] [address] Carotid Duplex Ultrasound 07/03/24 1246 MR#: [id number] Acct: [id number] Name: MICHAEL MEIER Rep #: [id number] : 1940 84 From: Virgil Her MD Attending Dr: NIDA Katz Status: REG CLI Ordering Dr: Anabel Horne PA Date: 07/25 Location: [facility] Sex: F C Admitted: Reason For Study Reason For Study: Rt Bruit Rt. Velocities/BP Lt. Velocities/BP Prox CCA 70/13 cm/sec. Prox CCA 113/19 cm/sec. Mid CCA 99/17 cm/sec. Mid CCA 97/17 cm/sec. Dist CCA 90/17 cm/sec. Dist CCA 100/10 cm/sec. Prox ICA 82/14 cm/sec. Prox ICA 121/24 cm/sec. Mid ICA 93/23 cm/sec. Mid ICA 108/19 cm/sec. Dist ICA 103/28 cm/sec. Dist ICA 110/23 cm/sec. Rt. ICA/CCA = 1.0. Lt. ICA/CCA = 1.3. Prox ECA 141/8 cm/sec. Prox ECA 113/7 cm/sec. Rt. Vert. 56/9 cm/sec. Lt. Vert. 56/11 cm/sec. Right Extracranial There is heterogeneous, irregular atherosclerotic plaque noted in the right common carotid artery. There is heterogeneous, smooth atherosclerotic plaque noted in the right internal carotid artery. There is heterogeneous, irregular atherosclerotic plaque noted in the right external carotid artery. Antegrade flow is noted in the right vertebral artery. Left Extracranial There is intimal thickening but no significant atherosclerotic plaque noted in the left common carotid artery. There is heterogeneous, irregular atherosclerotic plaque noted in the left internal carotid artery. There is intimal thickening but no significant atherosclerotic plaque noted in the left external carotid artery. Antegrade flow is noted in the left vertebral artery. Procedure Carotid Duplex [id number]. This is a Carotid Duplex examination using B-mode, color flow and specral Doppler. Exam performed in department. VL/Carotid Duplex Ultrasound Interpretation Summary Mild (<50%) stenosis right extracranial internal carotid. Mild (<50%) stenosis left extracranial internal carotid. Patent and antegrade vertebrals bilaterally. Ordering Physician: Anabel Horne Referring Physician: Michael Puga Performed By: Ernestine Elliott, CHASE, RVT 07/03/24 180 Date Virgil Her MD CC: Dr. Michael Puga DO; NIDA Katz Date Dictated: 07/03/24 1246 Date Transcribed: 07/03/241805 [employer] Middleware Developer: Signed Normal [facility] Duplex ultrasound of carotid artery reportOrdered By: Virgil Her on 07-03-2024 Study report [facility] [address] [place] [address] Carotid Duplex Ultrasound 07/03/24 1246 MR#: [id number] Acct: [id number] Name: ALEXANDRUABNERMICHAEL Augusta Rep #:[id number] : 1940 84 From: Virgil Souza Attending Dr: Anabel Horne, NIDA Status: REG CLI Ordering Dr: Anabel Horne Date: 07/03/24 Location: [facility] Sex: F C Admitted: Reason For Study Reason For Study: Rt Bruit Rt. Velocities/BP Lt. Velocities/BP Prox CCA 70/13 cm/sec. Prox CCA 113/19 cm/sec. Mid CCA 99/17 cm/sec. Mid CCA 97/17 cm/sec. Dist CCA 90/17 cm/sec. Dist CCA 100/10 cm/sec. Prox ICA 82/14 cm/sec. Prox ICA 121/24 cm/sec. Mid ICA 93/23 cm/sec. Mid ICA 108/19 cm/sec. Dist ICA 103/28 cm/sec. Dist ICA 110/23 cm/sec. Rt. ICA/CCA = 1.0. Lt. ICA/CCA = 1.3. Prox ECA 141/8 cm/sec. Prox ECA 113/7 cm/sec. Rt. Vert. 56/9 cm/sec. Lt. Vert. 56/11 cm/sec. Right Extracranial There is heterogeneous, irregular atherosclerotic plaque noted in the right common carotid artery. There is heterogeneous, smooth atherosclerotic plaque noted in the right internal carotidartery. There is heterogeneous, irregular atherosclerotic plaque noted in the right external carotid artery. Antegrade flow is noted in the right vertebral artery. Left Extracranial There is intimal thickening but no significant atherosclerotic plaque noted in the left common carotid artery. There is heterogeneous, irregular atherosclerotic plaque noted in the left internal carotid artery. There is intimal thickening but no significant atherosclerotic plaque noted in the left external carotid artery. Antegrade flow is noted in the left vertebral artery. Procedure Carotid Duplex [id number]. This is a Carotid Duplex examination using B-mode, color flow and specral Doppler. Exam performed in department. VL/Carotid Duplex Ultrasound Interpretation Summary Mild (<50%) stenosis right extracranial internal carotid. Mild (<50%) stenosis left extracranial internal carotid. Patent and antegrade vertebrals bilaterally. Ordering Physician: Anabel Horne Referring Physician: Michael Puga Performed By: Ernestine Elliott, [facility], RVT 07/03/241805 Date _ Virgil Her MD CC: Dr. Michael Puga DO; NIDA Katz ~ Date Dictated: 07/03/24 1246 Date Transcribed: 07/03/241805 [employer] Middleware Developer: Signed [facility] Work Phone: [facility] 06-26-2024 [facility] Telephone (FAMPWS) MICHAEL MEIER ([id number]) 1940 F Date Time Provider Department 06/26/24 MICHAEL PUGA [facility] During your visit today, we recorded the following information about you: Amanda Pratt RN 06/26/2024 2:48 PM Signed Patient calls to let provider know that she didn't start the Advair Diskus d/t side effects and the pulmonary testing didn't show asthma or COPD per patient. Patient also asking about amiodarone. Doesn't look like it is ordered by provider but patient reports provider was going to check with [facility] about taking it since it can cause SOB. Please review and advise, GLYNN Montiel Jordan L, DO 06/28/2024 10:38 AM Signed Please call her police booking officer office at [facility] and see if they are concerned with her shortness of breath and respirator symptoms potentially being secondary to SE from Amiodarone and if any options to change this anti arrhythmic on their end? DO Rodrigo Dow Brittany L, MA 06/28/2024 11:40 AM Signed Printed telephone encounter with cover sheet AND faxed to Dr. Hickey [phone]. Advised on cover sheet to respond with police booking officer's recommendations. Will wait for fax back. Renea Wallace MA Allergies As of Date: 06/26/2024 Noted Allergy Reaction CIPROFLOXACIN 09/05/2018 2 - Rash DEMEROL (MEPERIDINE (PF)) 02/06/2011 11 - Vomiting OPIOIDS - MORPHINE ANALOGUES 03/17/2001 5 - Intolerance Comments: nausea, dizzy, sees things OPIOIDS-MEPERIDINE AND RELATED 02/17/2001 Comments: nausea/vomiting PENICILLIN G 02/17/2001 Comments: imani PRAVACHOL (PRAVASTATIN SODIUM) 03/09/2016 14 - Other: See Comments Comments: Leg cramps SULFA (SULFONAMIDE ANTIBIOTICS) 03/17/2001 Comments: imani VICODIN (HYDROCODONE-ACETAMINOPHE* 5 - Intolerance Comments: dizzy,nausea,vomiting,headac he ZITHROMAX (AZITHROMYCIN) 05/20/2017 5 - Intolerance Date Reviewed: 05/11/2024 Reviewed by: Marisol Cano LPN - Fully Assessed Reason for Visit: Patient Update [1234] Prescriptions as of 07/14/2024 - levothyroxine (SYNTHROID) 50 mcg tablet Take 1 tablet by mouth daily before breakfast. In the morning, Take on empty stomach at least 30 min before eating. For thyroid. - fluticasone-salmeterol (ADVAIR DISKUS) 250-50 mcg/dose inhaler Inhale 1 Puff as instructed two times a day. RINSE AND GARGLE MOUTH WITH WATER AFTER EACH USE. - Nebulizer Accessories kit 1 Kit as directed. - hydroCHLOROthiazide 12.5 mg capsule Take 1 capsule by mouth once daily. - LORazepam (ATIVAN) 0.5 mg Take 1 tablet by mouth two times a day as needed (anxiety attack). - rOPINIRole (REQUIP) 1 mg tablet Take 1 tablet by mouth daily at bedtime. - PARoxetine (PAXIL) 20 mg tablet Take 1 tablet by mouth once daily. In the evening - sucralfate (CARAFATE) 100 mg/mL suspension Take 10 mL by mouth four times daily. - Omeprazole Magnesium (PRILOSEC OTC) 20 mg tablet Take 1 tablet by mouth once daily. - cyanocobalamin (VITAMIN B-12) 1,000 mcg tab Take 1,000 mcg by mouth once daily. - spironolactone (ALDACTONE) 25 mg tablet Take 25 mg by mouth once daily. - hydrALAZINE (APRESOLINE) 25 mg tablet Take 50 mg by mouth two times a day at 6 am and 9 pm. - albuterol HFA (PROVENTIL HFA, VENTOLIN HFA) 90 mcg/actuation inhaler Inhale 2 Puffs as instructed every 4 hours as needed. - meloxicam (MOBIC) 15 mg tablet Take 1 tablet by mouth once daily. Take with food. - rosuvastatin (CRESTOR) 10 mg tablet Take 1 tablet by mouth daily at bedtime. - guaiFENesin (MUCINEX) 600 mg 12 hr tablet Take 1 tablet by mouth two times a day as needed for cold/allergy symptoms. - RESTASIS 0.05 % ophthalmic emulsion - Azelastine HCl (OPTIVAR) 0.05 % ophthalmic solution - aspirin, enteric coated (ASPIRIN, ENTERIC COATED) 81 mg EC tablet Take 81 mg by mouth once daily. - PACERONE 200 mg tablet Take 200 mg by mouth once daily. - ubidecarenone (COQ-10 ORAL) Take by mouth. - diltiazem CD (CARDIZEM CD) 240 mg 24 hr capsule Take 1 capsule by mouth once daily. - losartan (COZAAR) 100 mg tablet Take 1 tablet by mouth once daily. Problem List As Of Date 06/26/2024 Noted Resolved MALIG MELANOMA TRUNK [C43.59] 02/17/2001 Melanoma of skin, site unspecified [C43.9] 01/09/2012 ALLERGIC RHINITIS NOS [J30.9] Other and unspecified hyperlipidemia [E78.5] 03/11/2015 Primary hypertension [I10] Unspecified gastritis and gastroduodenitis [535* 03/11/2015 Actinic keratosis [L57.0] 01/20/2007 03/11/2015 Other chronic dermatitis due to solar radiation*01/20/2007 01/09/2012 Scar condition and fibrosis of skin [L90.5] 01/20/2007 03/11/2015 SOLAR LENGINES///DYSCHROMIA OTHER [L81.9] 01/20/2007 01/09/2012 Other seborrheic keratosis [L82.1] 01/20/2007 01/09/2012 NEVUS///BENIGN COLIN SKIN TRUNK [D23.5] 01/20/2007 01/09/2012 NEVI///BENIGN COLIN SKIN FACE NEC [D23 (more content not included)... Normal [facility] CNOVon 06-21-2024 CNOV Office Visit (FAMPWS ) ALEXANDRUYUKOMICHAEL Augusta ([id number]) 1940 F Date Time Provider Department 06/21/24 5:20 PM [facility] During your visit today, we recorded the following information about you: Temperature Pulse Respiration Blood pressure 97.7 degrees 64/minute 20/minute 160/70 Weight 100.2 kg Michael Puga DO 06/27/2024 4:11 PM Signed CC: Michaelalex Meier is a 84 year old female who presents to the office for follow up HPI: She was recently seen in the hospital end apr about 6-7 weeks ago for shortness of breath and cough. She was found to have concerns for some obstructive lung disease as well as CHF with hypoxia present and mild respiratory distress. Treated with IV antibiotics and steroids and oxygen and albuterol. She has been seen by [employer] as well as Dr. 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 She is taking diltiazem and losartan and hydralazine medication. Denies any CP or syncope. Is having a lot of fatigue and dyspnea symptoms. No new cough or fevers or chills. She has support from her friend that brought her to the office today She feels lack of motivation to exercise PAST MEDICAL HISTORY Diagnosis Date A-fib (HCC) Allergic rhinitis, cause unspecified Arrhythmia Arthritis Greater trochanteric bursitis of left hip Melanoma of skin, site unspecified 2003 back Osteoarthritis of left hip Other and unspecified hyperlipidemia Pulmonary hypertension (HCC) Situational mixed anxiety and depressive disorder Sleep apnea Stroke (HCC) Unspecified essential hypertension Unspecified gastritis and gastroduodenitis PAST SURGICAL HISTORY Procedure Laterality Date ABDOMINAL SURGERY HX APPENDECTOMY HX ARTHRP ACETBLR/PROX FEM PROSTC AGRFT/ALGRFT 12/09/2003 right hip, redone, 07/2004 ARTHRP ACETBLR/PROX FEM PROSTC AGRFT/ALGRFT Left 07/2016 [facility] CONDYLEANDPLATU MEDIALANDLAT COMPARTMENTS 11/15/2009 Knee replacement, total -Left - [facility] ARTHRP E CONDYLEANDPLATU MEDIALANDLAT COMPARTMENTS 12/30/2009 Right knee replaced COLONOSCOPY FLX DX W/COLLJ SPEC WHEN PFRMD 06/29/2017 Colonoscopy EGD 10/17/2020 EGD W/O [facility] SPEC VARICIES INJ 01/08/2022 EGD W/O [facility] SPEC VARICIES INJ 03/31/2024 [place] ESOPHAGOGASTRODUODENOSCOPY TRANSORAL DIAGNOSTIC 11/29/2000 EGD ESOPHAGOGASTRODUODENOSCOPY TRANSORAL DIAGNOSTIC 06/29/2017 EGD JOINT REPLACEMENT HX LAPS SURG CHOLECYSTECTOMY W/CHOLANGIOGRAPHY PACEMAKER IMPLANT 01/2011 SKIN BIOPSY HX TONSILLECTOMY HX TOTAL ABDOMINAL HYSTERECT W/WO RMVL TUBE OVARY Hysterectomy, GAL Current Outpatient Medications Medication Sig levothyroxine (SYNTHROID) 50 mcg tablet Take 1 tablet by mouth daily before breakfast. In the morning, Take on empty stomach at least 30 min before eating. For thyroid. fluticasone-salmeterol (ADVAIR DISKUS) 250-50 mcg/dose inhaler Inhale 1 Puff as instructed two times a day. RINSE AND GARGLE MOUTH WITH WATER AFTER EACH USE. Nebulizer Accessories kit 1 Kit as directed. hydroCHLOROthiazide 12.5 mg capsule Take 1 capsule by mouth once daily. LORazepam (ATIVAN) 0.5 mg Take 1 tablet by mouth two times a day as needed (anxiety attack). rOPINIRole (REQUIP) 1 mg tablet Take 1 tablet by mouth daily at bedtime. PARoxetine (PAXIL) 20 mg tablet Take 1 tablet by mouth once daily. In the evening sucralfate (CARAFATE) 100 mg/mL suspension Take 10 mL by mouth four times daily. Omeprazole Magnesium (PRILOSEC OTC) 20 mg tablet Take 1 tablet by mouth once daily. cyanocobalamin (VITAMIN B-12) 1,000 mcg tab Take 1,000 mcg by mouth once daily. spironolactone (ALDACTONE) 25 mg tablet Take 25 mg by mouth once daily. hydrALAZINE (APRESOLINE) 25 mg tablet Take 50 mg by mouth two times a day at 6 am and 9 pm. albuterol HFA (PROVENTIL HFA, VENTOLIN HFA) 90 mcg/actuation inhaler Inhale 2 Puffs as instructed every 4 hours as needed. meloxicam (MOBIC) 15 mg tablet Take 1 tablet by mouth once daily. Take with food. rosuvastatin (CRESTOR) 10 mg tablet Take 1 tablet by mouth daily at bedtime. guaiFENesin (MUCINEX) 600 mg 12 hr tablet Take 1 tablet by mouth two times a day as needed for cold/allergy symptoms. (Patient not taking: Reported on 05/11/2024) RESTASIS 0.05 % ophthalmic emulsion Azelastine HCl (OPTIVAR) 0.05 % ophthalmic solution aspirin, enteric coated (ASPIRIN, ENTERIC COATED) 81 mg EC tablet Take 81 mg by mouth once daily. PACERONE 200 mg tablet Take 200 mg by mouth once daily. ubidecarenone (COQ-10 ORAL) Take by mouth. diltiazem CD (CARDIZEM CD) 240 mg 24 hr capsule Take 1 capsule by mouth once daily. losartan (COZAAR) 100 mg tablet Take 1 tablet by mouth once daily. No current facility-administered medications for this visit. ALLERGIES Allergen Reactions Ciprofloxacin Rash Demerol [Meperidine* Vomiting Opioids - Mo (more content not included)... Normal [facility] Priscila 06-06-2024 [facility] ALEXANDRUMICHAEL HOWARD ([id number]) 1940 F Date Time Provider Department 06/06/24 MICHAEL PUGA During your visit today, we recorded the following information about you: Constance Ervin LPN 06/06/2024 11:54 AM Signed Pt calls for lab results done at [facility] on 06/02/24. Results are scanned in the lab chart.. CAROLINE Lennon Jordan L, DO 06/06/2024 4:29 PM Signed Please inform patient that her BUN is slightly high, creatinine is normal. She needs to increase her fluid/water intake. Also her AST and ALT liver enzyme labs are slightly high- this CMP lab needs to be rechecked in 1 month DO Brigette Dow [place], MA 06/06/2024 4:37 PM Signed Pt informed, verbalized understanding Jacque Machuca MA Allergies As of Date: 06/06/2024 Noted Allergy Reaction CIPROFLOXACIN 09/05/2018 2 - Rash DEMEROL (MEPERIDINE (PF)) 02/06/2011 11 - Vomiting OPIOIDS - MORPHINE ANALOGUES 03/17/2001 5 - Intolerance Comments: nausea, dizzy, sees things OPIOIDS-MEPERIDINE AND RELATED 02/17/2001 Comments: nausea/vomiting PENICILLIN G 02/17/2001 Comments: hivmyranda PRAVACHOL (PRAVASTATIN SODIUM) 03/09/2016 14 - Other: See Comments Comments: Leg cramps SULFA (SULFONAMIDE ANTIBIOTICS) 03/17/2001 Comments: hives VICODIN (HYDROCODONE-ACETAMINOPHE* 5 - Intolerance Comments: dizzy,nausea,vomiting,headac he ZITHROMAX (AZITHROMYCIN) 05/20/2017 5 - Intolerance Date Reviewed: 05/11/2024 Reviewed by: Marisol Cano LPN - Fully Assessed Reason for Visit: Results, Lab [1201] Prescriptions as of 06/06/2024 - hydroCHLOROthiazide 12.5 mg capsule Take 1 capsule by mouth once daily. - LORazepam (ATIVAN) 0.5 mg Take 1 tablet by mouth two times a day as needed (anxiety attack). - rOPINIRole (REQUIP) 1 mg tablet Take 1 tablet by mouth daily at bedtime. - PARoxetine (PAXIL) 20 mg tablet Take 1 tablet by mouth once daily. In the evening - sucralfate (CARAFATE) 100 mg/mL suspension Take 10 mL by mouth four times daily. - Omeprazole Magnesium (PRILOSEC OTC) 20 mg tablet Take 1 tablet by mouth once daily. - cyanocobalamin (VITAMIN B-12) 1,000 mcg tab Take 1,000 mcg by mouth once daily. - spironolactone (ALDACTONE) 25 mg tablet Take 25 mg by mouth once daily. - hydrALAZINE (APRESOLINE) 25 mg tablet Take 25 mg by mouth once daily. - albuterol HFA (PROVENTIL HFA, VENTOLIN HFA) 90 mcg/actuation inhaler Inhale 2 Puffs as instructed every 4 hours as needed. - meloxicam (MOBIC) 15 mg tablet Take 1 tablet by mouth once daily. Take with food. - fluticasone (FLOVENT) 110 mcg/actuation inhaler Inhale 1 Puff as instructed two times a day. Shake well before use. Rinse mouth after use. - levothyroxine (SYNTHROID) 50 mcg tablet Take 1 tablet by mouth daily before breakfast. In the morning, Take on empty stomach at least 30 min before eating. For thyroid. - rosuvastatin (CRESTOR) 10 mg tablet Take 1 tablet by mouth daily at bedtime. - guaiFENesin (MUCINEX) 600 mg 12 hr tablet Take 1 tablet by mouth two times a day as needed for cold/allergy symptoms. - RESTASIS 0.05 % ophthalmic emulsion - Azelastine HCl (OPTIVAR) 0.05 % ophthalmic solution - aspirin, enteric coated (ASPIRIN, ENTERIC COATED) 81 mg EC tablet Take 81 mg by mouth once daily. - PACERONE 200 mg tablet Take 200 mg by mouth once daily. - ubidecarenone (COQ-10 ORAL) Take by mouth. - diltiazem CD (CARDIZEM CD) 240 mg 24 hr capsule Take 1 capsule by mouth once daily. - losartan (COZAAR) 100 mg tablet Take 1 tablet by mouth once daily. Problem List As Of Date 06/06/2024 Noted Resolved MALIG MELANOMA TRUNK [C43.59] 02/17/2001 Melanoma of skin, site unspecified [C43.9] 01/09/2012 ALLERGIC RHINITIS NOS [J30.9] Other and unspecified hyperlipidemia [E78.5] 03/11/2015 Primary hypertension [I10] Unspecified gastritis and gastroduodenitis [535* 03/11/2015 Actinic keratosis [L57.0] 01/20/2007 03/11/2015 Other chronic dermatitis due to solar radiation*01/20/2007 01/09/2012 Scar condition and fibrosis of skin [L90.5] 01/20/2007 03/11/2015 SOLAR LENGINES///DYSCHROMIA OTHER [L81.9] 01/20/2007 01/09/2012 Other seborrheic keratosis [L82.1] 01/20/2007 01/09/2012 NEVUS///BENIGN COLIN SKIN TRUNK [D23.5] 01/20/2007 01/09/2012 NEVI///BENIGN COLIN SKIN FACE NEC [D23.30] 01/20/2007 01/09/2012 SEBACEOUS HYPERPLASIA///SEBACEOUS GLAND DIS NOS*01/20/2007 01/09/2012 DYSMETABOLIC SYNDROME X [E88.810] 07/12/2007 A-fib (HCC) [I48.91] 10/08/2010 03/11/2015 Personal history of malignant melanoma of skin *02/08/2011 Actinic skin damage [L57.8] 01/09/2012 03/11/2015 Solar Lentigines [L81.4] 01/09/2012 03/11/2015 Surgical Scars [L90.5] 01/09/2012 03/11/2015 Irriated//Inflamed Seborrheic Keratoses [L82.0] 12/01/2013 03/11/2015 Other Seborrheic Keratoses [L82.1] 12/01/2013 03/11/2015 Xerosis cutis [L85.3] 12/01/2013 (more content not included)... Normal [facility] Albumin to globulin ratioOrd ered By: Michael Puga on 06-02-2024 Albumin/Globulin [Mass ratio] 1.0 {ratio} 0.9-2.4 [facility] Bilirubin, totalOrdered By: Michael Puga on 06-02-2024 Bilirubin [Mass/Vol] 0.60 mg/dL 0.20-1.[address] [facility] Comment on above: For patients on eltr ombopag therapy, use of Dimension Foster TBIL is not recommended. Blood urea nitrogen (BUN)/cr eatinine ratioOrdered By: Michael Puga on 06-02-2024 Urea nitrogen/Creatinine [Mass ratio] 33.2 mg/mg High 10-20 [facility] Carbon dioxide measurementOr dered By: Michael Puga on 06-02-2024 CO2 [Moles/Vol] 29.0 mmol/L 21.0-32.0 [facility] Chloride measurementOrdered By: Michael Puga on 06-02-2024 Chloride [Moles/Vol] 99 mmol/L 98-107 [facility] Comprehensive Metabolic Prof ilon 06-02-2024 Albumin [Mass/Vol] 3.3 g/dL Normal 3.2-5.0 [facility] Comment on above: Performed By: #### L 500.4050 #### [facility] [address] [place], [address] Albumin/Globulin [Mass ratio] 1.0 {ratio} Normal 0.9-2.4 [facility] Comment on above: Performed By: #### L 500.4050 #### [facility] [address] [place], [address] ALK P 85 U/L Normal 45-117 [facility] Comment on above: Performed By: #### L [id number] #### [facility] [address] [place], [address] ALT [Catalytic activity/Vol] 84 U/L High 13-56 [facility] Comment on above: Performed By: #### L [id number] #### [facility] [address] [place], [address] AST [Catalytic activity/Vol] 51 U/L High 15-37 [facility] Comment on above: Performed By: #### L [id number] #### [facility] [address] [place], [address] Bilirubin [Mass/Vol] 0.60 mg/dL Normal 0.20-1.00 [facility] Comment on above: Result Comment: For patients on eltrombopag therapy, use of Dimension Foster TBIL is not recommended. Performed By: #### L [id number] #### [facility] [address] [place], [address] BUN/CRE 33.2 RATIO High 10-20 [facility] Comment on above: Performed By: #### L [id number] #### [facility] [address] [place], [address] CA,Total 9.1 mg/dL Normal 8.5-10.1 [facility] Comment on above: Performed By: #### L [id number] #### [facility] [address] [place], [address] Chloride [Moles/Vol] 99 mmol/L Normal 98-107 [facility] Comment on above: Performed By: #### L [id number] #### [facility] [address] [place], [address] CO2 [Moles/Vol] 29.0 mmol/L Normal 21.0-32.0 [facility] Comment on above: Performed By: #### L [id number] #### [facility] [address] [place], [address] Creatinine [Mass/Vol] 0.87 mg/dL Normal 0.55-1.02 [facility] Comment on above: Result Comment: The validity of the calculated GFR GFRAA in patients over 70 years has not been determined. Clinical correlation is essential. Performed By: #### L [id number] #### [facility] [address] [place], [address] EST GFR - AA 80 mL/min Normal >60 [facility] Comment on above: Result Comment: Afri can Japanese GFR Calc Performed By: #### L [id number] #### [facility] [address] [place], [address] GAP 6 Normal 5-15 [facility] Comment on above: Performed By: #### L [id number] #### [facility] [address] [place], [address] GFR/1.73 sq M.predicted among non-blacks MDRD (S/P/Bld) [Vol rate/Area] 66 mL/min/{1.73_m2} Normal >60 [facility] Comment on above: Result Comment: Non- GFR Calc Performed By: #### L [id number] #### [facility] [address] [place], [address] Globulin (S) [Mass/Vol] 3.4 g/dL Normal 2.2-4.2 [facility] Comment on above: Performed By: #### L [id number] #### [facility] [address] [place], [address] Glucose [Mass/Vol] 99 mg/dL Normal 74-106 [facility] Comment on above: Performed By: #### L [id number] #### [facility] [address] [place], [address] Potassium [Moles/Vol] 5.1 mmol/L Normal 3.5-5.1 [facility] Comment on above: Performed By: #### L [id number] #### [facility] [address] [place], [address] Sodium [Moles/Vol] 133 mmol/L Low 136-145 [facility] Comment on above: Performed By: #### L [id number] #### [facility] [address] [place], [address] T PROT 6.7 g/dL Normal 6.4-8.2 [facility] Comment on above: Performed By: #### L [id number] #### [facility] [address] [place], [place], [address] Urea nitrogen [Mass/Vol] 29 mg/dL High 7-18 [facility] Comment on above: Performed By: #### L [id number] #### [facility] [address] [place], [place], [address] Estimated glomerular filtrat ion rate (GFR) AmericanOrdered By: Michael Puga on 06-02-2024 Estimated GFR (MDRD) Amer 80 mL/min >60 [facility] Comment on above: GFR Calc Glomerular filtration rate ( GFR) estimationOrdered By: Michael Puga on 06-02-2024 Estimated GFR (MDRD) Non-Af Amer 66 mL/min >60 [facility] Comment on above: Non- GFR Calc Glucose measurementOrdered B y: Michael Puga on 06-02-2024 Glucose [Mass/Vol] 99 mg/dL 74-106 [facility] Laboratory - Chemistry and C hemistry - challengeOrdered By: Michael Puga on 06-02-2024 AST [Catalytic activity/Vol] 51 U/L High 15-37 [facility] Potassium measurementOrdered By: Michael Puga on 06-02-2024 Potassium [Moles/Vol] 5.1 mmol/L 3.5-5.1 [facility] Serum anion gap measurementO rdered By: Michael Puga on 06-02-2024 Anion gap [Moles/Vol] 6 mmol/L 5-15 [facility] Serum globulin measurementOr dered By: Michael Puga on 06-02-2024 Globulin (S) [Mass/Vol] 3.4 g/dL 2.2-4.2 [facility] Serum or plasma alanine sprague otransferase (ALT) measurementOrdered By: Michael Puga on 06-02-2024 ALT [Catalytic activity/Vol] 84 U/L High 13-56 [facility] Serum or plasma albumin julee urement (mass/volume)Ordered By: Michael Puga on 06-02-2024 Albumin [Mass/Vol] 3.3 g/dL 3.2-5.0 [facility] Serum or plasma alkaline rachel sphatase measurementOrdered By: Michael Puga on 06-02-2024 ALP [Catalytic activity/Vol] 85 U/L 45-117 [facility] Serum or plasma calcium julee urement (mass/volume)Ordered By: Michael Puga on 06-02-2024 Calcium [Mass/Vol] 9.1 mg/dL 8.5-10.1 [facility] Serum or plasma creatinine m easurement (mass/volume)Ordered By: Michael Puga on 06-02-2024 Creatinine [Mass/Vol] 0.87 mg/dL 0.55-1.02 [facility] Comment on above: The validity of the calculated GFR & GFRAA in patients over 70 years has not been determined. Clinical correlation is essential. Serum or plasma urea nitroge n measurement (mass/volume)Ordered By: Michael Puga on 06-02-2024 Urea nitrogen [Mass/Vol] 29 mg/dL High 7-18 [facility] Sodium levelOrdered By: Susanna Puga on 06-02-2024 Sodium [Moles/Vol] 133 mmol/L Low 136-145 [facility] Total proteinOrdered By: Vance Puga on 06-02-2024 Protein [Mass/Vol] 6.7 g/dL 6.4-8.2 [facility] Cardiology Visit Reporton Cardiology Visit Report [facility] [place] [facility] [address] [place] [address]. [address] [place] [address] OFFICE VISIT Date of Service: 06/01/24 MR#: [id number] Acct: [id number] Name: MICHAEL MEIER Rep #: [id number] : 1940 Provider: NIDA Carbajal Age/Sex: 84/F Location: [facility] Status: Signed HPI HPI History of Present Illness Details: MICHAEL MEIER, is a 84 F who presents for a follow-up visit. She is a lady with a history of paroxysmal atrial fibrillation, status post permanent pacemaker implantation and recent generator change, hypertension, obstructive sleep apnea and a previous history of TIA. She returns for follow-up visit. She does continue to complain of fatigue. He remember she had been on a beta- tenzin when she started complaining of this and that medication was changed however I does not appear to have made any difference. She has not had any recent episodes of atrial fibrillation. She denies any neck arm or jaw discomfort to suggest angina. Her last echocardiogram from 2018 demonstrated preserved ejection fraction stage I diastolic dysfunction. She has a history of paroxysmal atrial fibrillation status post pacemaker placement, hypertension, and obstructive sleep apnea. She was hospitalized in 04/2024 with pneumonia. This was the second time she had pneumonia. She has questions about her diuretics. We did stop her Lasix. She also notes that she is fatigued. She wonders if it is related to medications. She does not have any edema. Prior to her hospital stay she had edema and was bloated. She does have a Home Health Nurse. Intake Vital Signs 01/25/24 13:00 05/02/24 12:11 06/01/24 13:20 Height 5 ft 5 in 5 ft 5 in 5 ft 5 in Weight: 220 lb BMI 36.6 BP 161/73 H Blood Pressure Location Lt brachial Position Sitting Respiration 18 Pulse 60 Pulse Source Monitor Pulse Oximetry (%) 96 Intake Visit Reasons: 4 M FU/ Naveen Gonzalez @ 1 Thread Inspector Required: No Is patient in pain?: No Allergies ciprofloxacin (From Cipro) Allergy (Verified 04/30/24 06:15) Rash Penicillins (PCN) Allergy (Verified 04/30/24 06:15) Hives Sulfa (Sulfonamide Antibiotics) Allergy (Verified 04/30/24 06:15) Hives Beta-Blockers (Beta-Adrenergic Bloc Adverse Reaction (Verified 04/30/24 06:15) Other hydrocodone (From Vicodin) Adverse Reaction (Verified 04/30/24 06:15) Other lisinopril Adverse Reaction (Verified 04/30/24 06:15) cough meperidine (From Demerol) Adverse Reaction (Verified 04/30/24 06:15) Vomiting morphine Adverse Reaction (Verified 04/30/24 06:20) Other pravastatin Adverse Reaction (Verified 04/30/24 06:15) Other Medications ???Medication ???Instructions ???Recorded ???Confirmed ???Type lorazepam 0.5 mg tablet 0.5 mg PO BID PRN PRN Anxiety 05/0306/01/24 History aspirin 81 mg tablet,delayed 81 mg PO QDAY heart health #90 tab s 12/27/18 06/01/24 Rx release (Adult Low Dose Aspirin) coenzyme Q10 100 mg capsule (Co 100 mg PO DAILY supplement 0 06/01/24 History Q-10) rosuvastatin 10 mg tablet 10 mg PO DAILY cholesterol 0 06/01/24 History cholecalciferol (vitamin D3) 50 50 mcg PO DAILY vitamin 06/02/21 0 06/01/24 History mcg (2,000 unit) capsule sucralfate 100 mg/mL oral 10 ml PO TID PRN digestion 2 06/01/24 History suspension paroxetine HCl 20 mg tablet 20 mg PO QHS mental health 3 06/01/24 History losartan 100 mg tablet 100 mg PO DAILY blood pressure #90 08/10/23 06/01/24 Rx tabs cyclosporine 0.05 % eye drops in a 1 drp EACH EYE Q12H eye health 0 09/27/23 06/01/24 History dropperette (Restasis) albuterol sulfate 90 mcg/actuation 2 puff inhalation Q6H PRN 06/01/24 Rx aerosol inhaler (ProAir HFA) shortness of breath or wheezing #6.7 grams levothyroxine 50 mcg capsule 50 mcg PO QDAY 01/25/24 06/01/24 H istory spironolactone 25 mg tablet 25 mg PO DAILY #30 tabs 01/25/24 0 06/01/24 Rx amiodarone 200 mg tablet 200 mg PO DAILY heart #90 tabs 04/2506/01/24 Rx azelastine 0.05 % eye drops 1 drp ophthalmic (eye) BID 4 06/01/24 History fluticasone propionate 110 1 inh inhalation Q12H 04/30/24 History mcg/actuation HFA aerosol inhaler meloxicam 15 mg tablet 15 mg PO DAILY 04/30/24 06/01/24 H istory vitamin B complex (Balanced B-50 1 tab PO DAILY 04/30/24 06/01/24 H istory tablet) diltiazem HCl 240 mg 240 mg PO QHS heart #90 caps 05/1506/01/24 Rx capsule,extended release 24 hr hydralazine 50 mg tablet 50 mg PO BID #180 tabs 06/01/24 Rx Have you fallen in the past year?: No [facility] Medical History (Updated 06/01/24 @ 14:03 by Anabel Horne PA, PA) skilled nursing current use of amiodarone Right carotid bruit Pulmonary hypertension Obesity TIA (transient isch (more content not included)... Normal [facility] Pacemaker Checkon 06-01-2024 Pacemaker Check [facility] [place] [address] Pacemaker Check Date of Service: 06/01/241604 MR#: [id number] Acct: [id number] Name: HARDEEPMICHAEL Augusta Rep #: [id number] : 1940 From: Yuki Harris Age/Sex: 84/F Location: [facility] Status: Signed Billing Codes PM Device Codes: 14869 PM Dev Prog Eval, Dual Assessment and Plan Assessment and Plan (1) History of permanent cardiac pacemaker placement: Status: Chronic Comment: 01/29/2011; Gen Change 06/09/21 (2) Sick sinus syndrome: Status: Chronic (3) Paroxysmal atrial fibrillation: Status: Chronic 06/01/24 160 Date Yuki Coxigncarlita Signature: Date (if applicable) CC: [facility] Priscila 05-30-2024 CNPN Telephone (FAMPWS) MICHAEL MEIER ([id number]) 1940 F Date Time Provider Department 05/30/24 MICHAEL PUGAPSHELL During your visit today, we recorded the following information about you: Loli Adamson, GLYNN 05/30/2024 8:31 AM Signed Pt reports she had a CMP done at [facility] on 05/25/24 to check her kidneys and glucose. We received a BNP and CBC from [facility] under labs. Do not see a CMP. Patient asking Key to review and advise. Key Portillo APRN.CARMELINA 05/31/2024 7:36 AM Signed I don't see CMP results either. Can we call [facility] and confirm this was drawn. If not, have her get it done. Thank you, Key Portillo APRN.Amanda Heath, GLYNN 05/31/2024 10:09 AM Signed Qing with [facility] HH calls in regards to below. CMP was not completed. Re-faxed ordered to [facility] lab and Qing will add a nurse visit for this week to collect specimen as soon as possible. GLYNN Montiel Alyson Taylor, APRN.CARMELINA 05/31/2024 10:45 AM Signed Noted. Thank you, Key Portillo APRN.HATCHERY MAN Allergies As of Date: 05/30/2024 Noted Allergy Reaction CIPROFLOXACIN 09/05/2018 2 - Rash DEMEROL (MEPERIDINE (PF)) 02/06/2011 11 - Vomiting OPIOIDS - MORPHINE ANALOGUES 03/17/2001 5 - Intolerance Comments: nausea, dizzy, sees things OPIOIDS-MEPERIDINE AND RELATED 02/17/2001 Comments: nausea/vomiting PENICILLIN G 02/17/2001 Comments: hives PRAVACHOL (PRAVASTATIN SODIUM) 03/09/2016 14 - Other: See Comments Comments: Leg cramps SULFA (SULFONAMIDE ANTIBIOTICS) 03/17/2001 Comments: hives VICODIN (HYDROCODONE-ACETAMINOPHE* 5 - Intolerance Comments: dizzy,nausea,vomiting,headac he ZITHROMAX (AZITHROMYCIN) 05/20/2017 5 - Intolerance Date Reviewed: 05/11/2024 Reviewed by: Marisol Cano LPN - Fully Assessed Reason for Visit: Results [95] Prescriptions as of 05/31/2024 - hydroCHLOROthiazide 12.5 mg capsule Take 1 capsule by mouth once daily. - LORazepam (ATIVAN) 0.5 mg Take 1 tablet by mouth two times a day as needed (anxiety attack). - rOPINIRole (REQUIP) 1 mg tablet Take 1 tablet by mouth daily at bedtime. - PARoxetine (PAXIL) 20 mg tablet Take 1 tablet by mouth once daily. In the evening - sucralfate (CARAFATE) 100 mg/mL suspension Take 10 mL by mouth four times daily. - Omeprazole Magnesium (PRILOSEC OTC) 20 mg tablet Take 1 tablet by mouth once daily. - cyanocobalamin (VITAMIN B-12) 1,000 mcg tab Take 1,000 mcg by mouth once daily. - spironolactone (ALDACTONE) 25 mg tablet Take 25 mg by mouth once daily. - hydrALAZINE (APRESOLINE) 25 mg tablet Take 25 mg by mouth once daily. - albuterol HFA (PROVENTIL HFA, VENTOLIN HFA) 90 mcg/actuation inhaler Inhale 2 Puffs as instructed every 4 hours as needed. - meloxicam (MOBIC) 15 mg tablet Take 1 tablet by mouth once daily. Take with food. - fluticasone (FLOVENT) 110 mcg/actuation inhaler Inhale 1 Puff as instructed two times a day. Shake well before use. Rinse mouth after use. - levothyroxine (SYNTHROID) 50 mcg tablet Take 1 tablet by mouth daily before breakfast. In the morning, Take on empty stomach at least 30 min before eating. For thyroid. - rosuvastatin (CRESTOR) 10 mg tablet Take 1 tablet by mouth daily at bedtime. - guaiFENesin (MUCINEX) 600 mg 12 hr tablet Take 1 tablet by mouth two times a day as needed for cold/allergy symptoms. - RESTASIS 0.05 % ophthalmic emulsion - Azelastine HCl (OPTIVAR) 0.05 % ophthalmic solution - aspirin, enteric coated (ASPIRIN, ENTERIC COATED) 81 mg EC tablet Take 81 mg by mouth once daily. - PACERONE 200 mg tablet Take 200 mg by mouth once daily. - ubidecarenone (COQ-10 ORAL) Take by mouth. - diltiazem CD (CARDIZEM CD) 240 mg 24 hr capsule Take 1 capsule by mouth once daily. - losartan (COZAAR) 100 mg tablet Take 1 tablet by mouth once daily. Problem List As Of Date 05/30/2024 Noted Resolved MALIG MELANOMA TRUNK [C43.59] 02/17/2001 Melanoma of skin, site unspecified [C43.9] 01/09/2012 ALLERGIC RHINITIS NOS [J30.9] Other and unspecified hyperlipidemia [E78.5] 03/11/2015 Primary hypertension [I10] Unspecified gastritis and gastroduodenitis [535* 03/11/2015 Actinic keratosis [L57.0] 01/20/2007 03/11/2015 Other chronic dermatitis due to solar radiation*01/20/2007 01/09/2012 Scar condition and fibrosis of skin [L90.5] 01/20/2007 03/11/2015 SOLAR LENGINES///DYSCHROMIA OTHER [L81.9] 01/20/2007 01/09/2012 Other seborrheic keratosis [L82.1] 01/20/2007 01/09/2012 NEVUS///BENIGN COLIN SKIN TRUNK [D23.5] 01/20/2007 01/09/2012 NEVI///BENIGN COLIN SKIN FACE NEC [D23.30] 01/20/2007 01/09/2012 SEBACEOUS HYPERPLASIA///SEBACEOUS GLAND DIS NOS*01/20/2007 01/09/2012 DYSMETABOLIC SYNDROME X [E88.810] 07/12/2007 A-fib (HCC) [I48.91] 10/08/2010 03/11/2015 Personal history of malignant melanoma of skin *02/08/2011 Actinic skin damage [L57.8] 01/09/2012 03/11/2015 Solar Lentig (more content not included)... Normal [facility] BNP (brain natriuretic pepti de measurement)Ordered By: Michael Puga on 05-25-2024 Natriuretic peptide B (Bld) [Mass/Vol] 33.8 pg/mL 0-100 [facility] BNP,B-Type NATRIURETIC PEPTI Kenyatta 05-25-2024 Natriuretic peptide B (Bld) [Mass/Vol] 33.8 pg/mL Normal 0-100 [facility] Comment on above: Performed By: #### L 500.3400, L501.2450 #### [facility] [address] [place], [address] CBC-Complete Blood Cnt No Di ffon 05-25-2024 Erythrocyte distribution width (RBC) [Ratio] 15.5 % High 11.6-14.6 [facility] Comment on above: Performed By: #### L 500.3400, L501.2450 #### [facility] [address] [place], [address] Hematocrit (Bld) [Volume fraction] 37.3 % Normal 37-47 [facility] Comment on above: Performed By: #### L 500.3400, L501.2450 #### [facility] [address] [place], [address] Hemoglobin (Bld) [Mass/Vol] 12.6 g/dL Normal 12.0-15.0 [facility] Comment on above: Performed By: #### L 500.3400, L501.2450 #### [facility] [address] [place], [address] MCH (RBC) [Entitic mass] 28.4 pg Normal 27.0-32.0 [facility] Comment on above: Performed By: #### L 500.3400, L501.2450 #### [facility] [address] [place], [address] MCHC (RBC) [Mass/Vol] 33.8 g/dL Normal 32-36 [facility] Comment on above: Performed By: #### L 500.3400, L501.2450 #### [facility] [address] [place], [address] MCV (RBC) [Entitic vol] 84.0 fL Normal 81-99 [facility] Comment on above: Performed By: #### L 500.3400, L501.2450 #### [facility] [address] [place], [address] Platelet mean volume (Bld) [Entitic vol] 11.1 fL Normal 6.2-12.0 [facility] Comment on above: Performed By: #### L 500.3400, L501.2450 #### [facility] [address] [place], [address] Platelets (Bld) [#/Vol] 256 10*3/uL Normal 150-450 [facility] Comment on above: Performed By: #### L 500.3400, L501.2450 #### [facility] [address] [place], [address] RBC (Bld) [#/Vol] 4.44 10*6/uL Normal 4.2-5.4 [place] Comment on above: Performed By: #### L 500.3400, L501.2450 #### [facility] [address] [place], [address] RDW SD 47.2 fl High 35.1-43.9 [facility] Comment on above: Performed By: #### L 500.3400, L501.2450 #### [facility] [address] [place], [address] WBC (Bld) [#/Vol] 10.3 10*3/uL Normal 4.4-11.0 [place] Comment on above: Performed By: #### L 500.3400, L501.2450 #### [facility] [address] [place], [address] Priscila 05-25-2024 CARMELINAN Telephone ([facility]) MICHAEL MEIER ([id number]) 1940 F Date Time Provider Department 05/25/24 MICHAEL PUGA During your visit today, we recorded the following information about you: Katia Marcano, GLYNN 05/25/2024 9:51 AM Signed Bhavna MAKI CM with [facility] called in and reports Pt had been taken off her Hydrochlorothiazide per Cardiology for a while, but the last time she was in the hospital she was put back on 12.5 mg. She states the Pt is going to need a script called in if she is to be taking them to [facility]. I told her I didn't see the HCTZ on her list at the moment, but I would send a message to the provider. She states Pt had been taken off the Lasix. She reports Pt has still been having fatigue. She reports her on and off dizziness and appetite have been getting better. She reports Pt has been drinking Ensure which has been helping. She took Pts BP today and it was 170/78, but Pt had held medications as she was drawing labs this morning. Please call and advise. Key Portillo APRN.CNP 05/25/2024 10:05 AM Signed I would like patient to take medication and then recheck BP. BP was WNL at appointment on 05/11. I see from discharge instructions from [facility] that she was taking HCTZ at that time. I would recommend staying on HCTZ regimen at this. Rx sent to pharmacy. Does she still have cards appointment with Dr. Hickey on 06/01 -- if so, they can decide if they want to keep her on this medication or not at that time. Thank you, Key Portillo APRN.HATCHERY MAN The following approved medication requests have been transmitted electronically. Requested Prescriptions Signed Prescriptions Disp Refills hydroCHLOROthiazide 12.5 mg capsule 90 capsule 0 Sig: Take 1 capsule by mouth once daily. Authorizing Provider: KEY PORTILLO APRN.HATCHERY MAN Marisol Cano LPN 05/25/2024 10:17 AM Signed Left detailed message on confidential voice mail. Also left out number for any questions. Allergies As of Date: 05/25/2024 Noted Allergy Reaction CIPROFLOXACIN 09/05/2018 2 - Rash DEMEROL (MEPERIDINE (PF)) 02/06/2011 11 - Vomiting OPIOIDS - MORPHINE ANALOGUES 03/17/2001 5 - Intolerance Comments: nausea, dizzy, sees things OPIOIDS-MEPERIDINE AND RELATED 02/17/2001 Comments: nausea/vomiting PENICILLIN G 02/17/2001 Comments: hives PRAVACHOL (PRAVASTATIN SODIUM) 03/09/2016 14 - Other: See Comments Comments: Leg cramps SULFA (SULFONAMIDE ANTIBIOTICS) 03/17/2001 Comments: hives VICODIN (HYDROCODONE-ACETAMINOPHE* 5 - Intolerance Comments: dizzy,nausea,vomiting,headac he ZITHROMAX (AZITHROMYCIN) 05/20/2017 5 - Intolerance Date Reviewed: 05/11/2024 Reviewed by: Marisol Cano LPN - Fully Assessed Reason for Visit: Patient Update [1234] Medication Question [7718] Order(s):hydroCHLOROthiazide 12.5 mg capsuleTake 1 capsule by mouth once daily.Disp: 90 capsuleRfl: 0 Prescriptions as of 05/25/2024 - hydroCHLOROthiazide 12.5 mg capsule Take 1 capsule by mouth once daily. - LORazepam (ATIVAN) 0.5 mg Take 1 tablet by mouth two times a day as needed (anxiety attack). - rOPINIRole (REQUIP) 1 mg tablet Take 1 tablet by mouth daily at bedtime. - PARoxetine (PAXIL) 20 mg tablet Take 1 tablet by mouth once daily. In the evening - sucralfate (CARAFATE) 100 mg/mL suspension Take 10 mL by mouth four times daily. - Omeprazole Magnesium (PRILOSEC OTC) 20 mg tablet Take 1 tablet by mouth once daily. - cyanocobalamin (VITAMIN B-12) 1,000 mcg tab Take 1,000 mcg by mouth once daily. - spironolactone (ALDACTONE) 25 mg tablet Take 25 mg by mouth once daily. - hydrALAZINE (APRESOLINE) 25 mg tablet Take 25 mg by mouth once daily. - albuterol HFA (PROVENTIL HFA, VENTOLIN HFA) 90 mcg/actuation inhaler Inhale 2 Puffs as instructed every 4 hours as needed. - meloxicam (MOBIC) 15 mg tablet Take 1 tablet by mouth once daily. Take with food. - fluticasone (FLOVENT) 110 mcg/actuation inhaler Inhale 1 Puff as instructed two times a day. Shake well before use. Rinse mouth after use. - levothyroxine (SYNTHROID) 50 mcg tablet Take 1 tablet by mouth daily before breakfast. In the morning, Take on empty stomach at least 30 min before eating. For thyroid. - rosuvastatin (CRESTOR) 10 mg tablet Take 1 tablet by mouth daily at bedtime. - guaiFENesin (MUCINEX) 600 mg 12 hr tablet Take 1 tablet by mouth two times a day as needed for cold/allergy symptoms. - RESTASIS 0.05 % ophthalmic emulsion - Azelastine HCl (OPTIVAR) 0.05 % ophthalmic solution - aspirin, enteric coated (ASPIRIN, ENTERIC COATED) 81 mg EC tablet Take 81 mg by mouth once daily. - PACERONE 200 mg tablet Take 200 mg by mouth once daily. - ubidecarenone (COQ-10 ORAL) Take by mouth. - diltiazem CD (CARDIZEM CD) 240 mg 24 hr capsule Take 1 capsule by mouth once daily. - losartan (COZAAR) 100 m (more content not included)... Normal [facility] Erythrocyte distribution wid th ratioOrdered By: Michael Puga on 05-25-2024 Erythrocyte distribution width (RBC) [Ratio] 15.5 % High 11.6-14.6 [facility] Erythrocyte distribution wid th standard deviationOrdered By: Michael Puga on 05-25-2024 Erythrocyte distribution width (RBC) [Entitic vol] 47.2 fL High 35.1-43.9 [facility] Hematocrit Auto (Bld) [Volum e fraction]Ordered By: Michael Puga on 05-25-2024 Hematocrit (Bld) [Volume fraction] 37.3 % 37-47 [facility] Hemoglobin measurementOrdere d By: Michael Puga on 05-25-2024 Hemoglobin (Bld) [Mass/Vol] 12.6 g/dL 12.0-15.0 [facility] MCV (mean corpuscular volume ) determinationOrdered By: Michael Puga on 05-25-2024 MCV (RBC) [Entitic vol] 84.0 fL 81-99 [facility] Mean corpuscular hemoglobin (MCH) determinationOrdered By: Michael Puga on 05-25-2024 MCH (RBC) [Entitic mass] 28.4 pg 27.0-32.0 [facility] Mean corpuscular hemoglobin concentration (MCHC) determinationOrdered By: Michael Puga on 05-25-2024 MCHC (RBC) [Mass/Vol] 33.8 g/dL 32-36 [facility] Mean platelet volume determi nationOrdered By: Michael Puga on 05-25-2024 Platelet mean volume (Bld) [Entitic vol] 11.1 fL 6.2-12.0 [facility] Platelet countOrdered By: Nellie Puga on 05-25-2024 Platelets (Bld) [#/Vol] 256 10*3/uL 150-450 [facility] RBC Auto (Bld) [#/Vol]Ordere d By: Michael Puga on 05-25-2024 RBC (Bld) [#/Vol] 4.44 10*6/uL 4.2-5.4 [place] White blood cell (WBC) count Ordered By: Michael Puga on 05-25-2024 WBC (Bld) [#/Vol] 10.3 10*3/uL 4.4-11.0 [place] Bilirubin, Directon 05-19-19 25 Bilirubin.direct [Mass/Vol] 0.28 mg/dL Normal 0.00-0.30 [facility] Comment on above: Performed By: #### L 500.3400, L501.2450 #### [facility] [address] [place], [address] Priscila 05-19-2024 LORRI Telephone ([facility]) MICHAEL MEIER ([id number]) 1940 F Date Time Provider Department 05/19/24 MICHAEL PUGA During your visit today, we recorded the following information about you: Chloe Castro LPN 05/19/2024 12:22 PM Signed Pt calling for results of lab work she had done in her home yesterday, Results are I Epic. Please advise pt. CAROLINE Ramirez Alyson Taylor, APRN.HATCHERY MAN 05/19/2024 2:40 PM Signed Please let patient know that lab work results look much much better! Kidney function is improving drastically. I want her to continue to stay off of the lasix and repeat labs 1 more time in 1 week. Without the lasix her BNP remains stable which is also a good sign. Thank you, Key Portillo APRN.Julianna Cabrera LPN 05/19/2024 2:43 PM Signed Pt. sandy. Tameka Marin RN 05/22/2024 12:31 PM Signed Marifer nurse with [facility] calling regarding recently ordered lab orders. Information provided and lab orders faxed to [facility]. Tameka Marin RN Allergies As of Date: 05/19/2024 Noted Allergy Reaction CIPROFLOXACIN 09/05/2018 2 - Rash DEMEROL (MEPERIDINE (PF)) 02/06/2011 11 - Vomiting OPIOIDS - MORPHINE ANALOGUES 03/17/2001 5 - Intolerance Comments: nausea, dizzy, sees things OPIOIDS-MEPERIDINE AND RELATED 02/17/2001 Comments: nausea/vomiting PENICILLIN G 02/17/2001 Comments: imani PRAVACHOL (PRAVASTATIN SODIUM) 03/09/2016 14 - Other: See Comments Comments: Leg cramps SULFA (SULFONAMIDE ANTIBIOTICS) 03/17/2001 Comments: imani VICODIN (HYDROCODONE-ACETAMINOPHE* 5 - Intolerance Comments: dizzy,nausea,vomiting,headac he ZITHROMAX (AZITHROMYCIN) 05/20/2017 5 - Intolerance Date Reviewed: 05/11/2024 Reviewed by: Marisol Cano LPN - Fully Assessed Reason for Visit: Results [95] Primary Visit Diagnosis: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 - LORazepam (ATIVAN) 0.5 mg Take 1 tablet by mouth two times a day as needed (anxiety attack). - rOPINIRole (REQUIP) 1 mg tablet Take 1 tablet by mouth daily at bedtime. - PARoxetine (PAXIL) 20 mg tablet Take 1 tablet by mouth once daily. In the evening - sucralfate (CARAFATE) 100 mg/mL suspension Take 10 mL by mouth four times daily. - Omeprazole Magnesium (PRILOSEC OTC) 20 mg tablet Take 1 tablet by mouth once daily. - cyanocobalamin (VITAMIN B-12) 1,000 mcg tab Take 1,000 mcg by mouth once daily. - spironolactone (ALDACTONE) 25 mg tablet Take 25 mg by mouth once daily. - hydrALAZINE (APRESOLINE) 25 mg tablet Take 25 mg by mouth once daily. - albuterol HFA (PROVENTIL HFA, VENTOLIN HFA) 90 mcg/actuation inhaler Inhale 2 Puffs as instructed every 4 hours as needed. - meloxicam (MOBIC) 15 mg tablet Take 1 tablet by mouth once daily. Take with food. - fluticasone (FLOVENT) 110 mcg/actuation inhaler Inhale 1 Puff as instructed two times a day. Shake well before use. Rinse mouth after use. - levothyroxine (SYNTHROID) 50 mcg tablet Take 1 tablet by mouth daily before breakfast. In the morning, Take on empty stomach at least 30 min before eating. For thyroid. - rosuvastatin (CRESTOR) 10 mg tablet Take 1 tablet by mouth daily at bedtime. - guaiFENesin (MUCINEX) 600 mg 12 hr tablet Take 1 tablet by mouth two times a day as needed for cold/allergy symptoms. - RESTASIS 0.05 % ophthalmic emulsion - Azelastine HCl (OPTIVAR) 0.05 % ophthalmic solution - aspirin, enteric coated (ASPIRIN, ENTERIC COATED) 81 mg EC tablet Take 81 mg by mouth once daily. - PACERONE 200 mg tablet Take 200 mg by mouth once daily. - ubidecarenone (COQ-10 ORAL) Take by mouth. - diltiazem CD (CARDIZEM CD) 240 mg 24 hr capsule Take 1 capsule by mouth once daily. - losartan (COZAAR) 100 mg tablet Take 1 tablet by mouth once daily. Problem List As Of Date 05/19/2024 Noted Resolved MALIG MELANOMA TRUNK [C43.59] 02/17/2001 Melanoma of skin, site unspecified [C43.9] 01/09/2012 ALLERGIC RHINITIS NOS [J30.9] Other and unspecified hyperlipidemia [E78.5] 03/11/2015 Primary hypertension [I10] Unspecified gastritis and gastroduodenitis [535* 03/11/2015 Actinic keratosis [L57.0] 01/20/2007 03/11/2015 Other chronic dermatitis due to solar radiation*01/20/2007 01/09/2012 Scar condition and fibrosis of skin [L90.5] 01/20/2007 03/11/2015 SOLAR LENGINES///DYSCHROMIA OTHER [L81.9] 01/20/2007 01/09/2012 Other seborrheic keratosis [L82.1] 01/20/2007 01/09/2012 NEVUS///BENIGN COLIN SKIN TRUNK [D23.5] 01/20/2007 01/09/2012 NEVI///BENIGN COLIN SKIN FACE NEC [D23.30] 01/20/2007 09 (more content not included)... Normal [facility] BNP (brain natriuretic pepti de measurement)Ordered By: Michael Puga on 05-18-2024 Natriuretic peptide B (Bld) [Mass/Vol] 38.6 pg/mL 0-100 [facility] BNP,B-Type NATRIURETIC PEPTI Kenyatta 05-18-2024 Natriuretic peptide B (Bld) [Mass/Vol] 38.6 pg/mL Normal 0-100 [facility] Comment on above: Performed By: #### L 500.3400, L501.2450 #### [facility] [address] [place], [address] Bilirubin directOrdered By: Michael Puga on 05-18-2024 Bilirubin.direct [Mass/Vol] 0.28 mg/dL 0.00-0.30 [facility] CBC-Complete Blood Cnt No Di ffon 05-18-2024 Erythrocyte distribution width (RBC) [Ratio] 15.9 % High 11.6-14.6 [facility] Comment on above: Performed By: #### L 500.3400, [id number] #### [facility] [address] [place], [address] Hematocrit (Bld) [Volume fraction] 35.5 % Low 37-47 [facility] Comment on above: Performed By: #### L 500.3400, [id number] #### [facility] [address] [place], [address] Hemoglobin (Bld) [Mass/Vol] 11.6 g/dL Low 12.0-15.0 [facility] Comment on above: Performed By: #### L 500.3400, [id number] #### [facility] [address] [place], [address] MCH (RBC) [Entitic mass] 27.8 pg Normal 27.0-32.0 [facility] Comment on above: Performed By: #### L 500.3400, [id number] #### [facility] [address] [place], [address] MCHC (RBC) [Mass/Vol] 32.7 g/dL Normal 32-36 [facility] Comment on above: Performed By: #### L 500.3400, [id number] #### [facility] [address] [place], [address] MCV (RBC) [Entitic vol] 84.9 fL Normal 81-99 [facility] Comment on above: Performed By: #### L 500.3400, [id number] #### [facility] [address] [place], [address] Platelet mean volume (Bld) [Entitic vol] 11.0 fL Normal 6.2-12.0 [facility] Comment on above: Performed By: #### L 500.3400, [id number] #### [facility] [address] [place], [address] Platelets (Bld) [#/Vol] 263 10*3/uL Normal 150-450 [facility] Comment on above: Performed By: #### L 500.3400, [id number] #### [facility] [address] [place], [address] RBC (Bld) [#/Vol] 4.18 10*6/uL Low 4.2-5.4 [place] Comment on above: Performed By: #### L 500.3400, [id number] #### [facility] [address] [place], [address] RDW SD 48.9 fl High 35.1-43.9 [facility] Comment on above: Performed By: #### L 500.3400, [id number] #### [facility] [address] [place], [address] WBC (Bld) [#/Vol] 9.2 10*3/uL Normal 4.4-11.0 [facility] Comment on above: Performed By: #### L 500.3400, [id number] #### [facility] [address] [place], [address] Comprehensive Metabolic Prof ilon 05-18-2024 Albumin [Mass/Vol] 3.4 g/dL Normal 3.2-5.0 [facility] Comment on above: Performed By: #### L 500.3400, [id number] #### [facility] [address] [place], [address] Albumin/Globulin [Mass ratio] 1.1 {ratio} Normal 0.9-2.4 [facility] Comment on above: Performed By: #### L 500.3400, [id number] #### [facility] [address] [place], [address] ALK P 77 U/L Normal 45-117 [facility] Comment on above: Performed By: #### L 500.3400, [id number] #### [facility] [address] [place], [address] ALT [Catalytic activity/Vol] 30 U/L Normal 13-56 [facility] Comment on above: Performed By: #### L 500.3400, [id number] #### [facility] [address] [place], [address] AST [Catalytic activity/Vol] 25 U/L Normal 15-37 [facility] Comment on above: Performed By: #### L 500.3400, [id number] #### [facility] [address] [place], [address] Bilirubin [Mass/Vol] 1.00 mg/dL Normal 0.20-1.00 [facility] Comment on above: Result Comment: For patients on eltrombopag therapy, use of Dimension Foster TBIL is not recommended. Performed By: #### L 500.3400, L501.2450 #### [facility] [address] [place], [address] BUN/CRE 26.7 RATIO High 10-20 [facility] Comment on above: Performed By: #### L 500.3400, [id number] #### [facility] [address] [place], [address] CA,Total 9.0 mg/dL Normal 8.5-10.1 [facility] Comment on above: Performed By: #### L 500.3400, [id number] #### [facility] [address] [place], [address] Chloride [Moles/Vol] 90 mmol/L Low 98-107 [facility] Comment on above: Performed By: #### L 500.3400, [id number] #### [facility] [address] [place], [address] CO2 [Moles/Vol] 29.0 mmol/L Normal 21.0-32.0 [facility] Comment on above: Performed By: #### L 500.3400, [id number] #### [facility] [address] [place], [address] Creatinine [Mass/Vol] 1.05 mg/dL High 0.55-1.02 [facility] Comment on above: Result Comment: The validity of the calculated GFR GFRAA in patients over 70 years has not been determined. Clinical correlation is essential. Performed By: #### L 500.3400, L501.2450 #### [facility] [address] [place], [address] EST GFR - AA 64 mL/min Normal >60 [facility] Comment on above: Result Comment: Afri can Japanese GFR Calc Performed By: #### L 500.3400, [id number] #### [facility] [address] [place], [address] GAP 9 Normal 5-15 [facility] Comment on above: Performed By: #### L 500.3400, [id number] #### [facility] [address] [place], [address] GFR/1.73 sq M.predicted among non-blacks MDRD (S/P/Bld) [Vol rate/Area] 53 mL/min/{1.73_m2} Low >60 [facility] Comment on above: Result Comment: Non- GFR Calc Performed By: #### L 500.3400, L501.2450 #### [facility] [address] [place], [address] Globulin (S) [Mass/Vol] 3.1 g/dL Normal 2.2-4.2 [facility] Comment on above: Performed By: #### L 500.3400, [id number] #### [facility] [address] [place], [address] Glucose [Mass/Vol] 99 mg/dL Normal 74-106 [facility] Comment on above: Performed By: #### L 500.3400, [id number] #### [facility] [address] [place], [address] Potassium [Moles/Vol] 4.0 mmol/L Normal 3.5-5.1 [facility] Comment on above: Performed By: #### L 500.3400, [id number] #### [facility] [address] [place], [address] Sodium [Moles/Vol] 128 mmol/L Low 136-145 [facility] Comment on above: Performed By: #### L 500.3400, [id number] #### [facility] [address] [place], [address] T PROT 6.5 g/dL Normal 6.4-8.2 [facility] Comment on above: Performed By: #### L 500.3400, [id number] #### [facility] [address] [place], [address] Urea nitrogen [Mass/Vol] 28 mg/dL High 7-18 [facility] Comment on above: Performed By: #### L 500.3400, L501.2450 #### [facility] [place] [address], [address] Erythrocyte distribution wid th ratioOrdered By: Michael Puga on 05-18-2024 Erythrocyte distribution width (RBC) [Ratio] 15.9 % High 11.6-14.6 [facility] Erythrocyte distribution wid th standard deviationOrdered By: Michael Puga on 05-18-2024 Erythrocyte distribution width (RBC) [Entitic vol] 48.9 fL High 35.1-43.9 [facility] Hematocrit Auto (Bld) [Volum e fraction]Ordered By: Michael Puga on 05-18-2024 Hematocrit (Bld) [Volume fraction] 35.5 % Low 37-47 [facility] Hemoglobin measurementOrdere d By: Michael Puga on 05-18-2024 Hemoglobin (Bld) [Mass/Vol] 11.6 g/dL Low 12.0-15.0 [facility] MCV (mean corpuscular volume ) determinationOrdered By: Michael Puga on 05-18-2024 MCV (RBC) [Entitic vol] 84.9 fL 81-99 [facility] Mean corpuscular hemoglobin (MCH) determinationOrdered By: Michael Puga on 05-18-2024 MCH (RBC) [Entitic mass] 27.8 pg 27.0-32.0 [facility] Mean corpuscular hemoglobin concentration (MCHC) determinationOrdered By: Michael Puga on 05-18-2024 MCHC (RBC) [Mass/Vol] 32.7 g/dL 32-36 [facility] Mean platelet volume determi nationOrdered By: Michael Puga on 05-18-2024 Platelet mean volume (Bld) [Entitic vol] 11.0 fL 6.2-12.0 [facility] Platelet countOrdered By: Nellie Puga on 05-18-2024 Platelets (Bld) [#/Vol] 263 10*3/uL 150-450 [facility] RBC Auto (Bld) [#/Vol]Ordere d By: Michael Puga on 05-18-2024 RBC (Bld) [#/Vol] 4.18 10*6/uL Low 4.2-5.4 [place] White blood cell (WBC) count Ordered By: Michael Puga on 05-18-2024 WBC (Bld) [#/Vol] 9.2 10*3/uL 4.4-11.0 [facility] CNPNon [facility]-16-20[facility]EL [facility]IER ([id number]) 1940 F Date Time Provider Department 05/16/24 MICHAEL PUGA [facility] During your visit today, we recorded the following information about you: Amanda Pratt RN 05/16/2024 10:26 AM Signed Bhavna with [facility] calls to report duplicate therapy between lasix and spironolactone and lasix and hydralazine. Bhavna is asking if provider wants all medications continued. Hydralazine and Spironolactone are on current medication list but prescription not sent to pharmacy. Please review and advise. Bhavna is requesting a call back at [phone]. GLYNN Montiel Jordan L, 05/17/2024 9:02 AM Signed Please clarify with pharmacy and patient her current diuretic/BLOOD PRESSURE medications that she is picking up and taking Marcie Rodriguez LPN 05/17/2024 9:50 AM Signed Phoned [facility] pharmacy with clarification on current meds. Spironolactone 25 mg daily was prescribed by the [facility] [facility] also hydralazine 25 mg was prescribed by [facility] [place] [facility]. Lasix 20 mg was just prescribed by Key Portillo, then Lasix 40 mg was prescribed by [facility] May 02. Left message with Bhavna [facility] about above information. Please review and advise further. CAROLINE Mcmullen Jordan L, 05/17/2024 12:32 PM Signed Please clarify what her edema of her legs is looking like? This was assessed by Key and not myself. I Don't want her to be on the spironolactone and the lasix. Recommend stopping the lasix if her edema is improved DO Hossein Dow Barbara, RN 05/17/2024 6:08 PM Signed Pt returned the call. Pt states she doesn't notice any swelling but she is concerned as she doesn't feel she is urinating as much as she should be. Pt doesn't have an appetite and feels so tired all the time. She states she has lost about 4# since she has been home from the hospital. Wt 219. Also having leg cramps more than normal. When asked pt how many times she has urinated today, pt guesses about 6. She usually goes about 3 times shortly after taking the Lasix in the morning. But pt states she usually has problems with peeing herself and that hasn't been happening. Pt notified to stop Lasix altogether. Verbalizes understanding. Pt is scheduled to see [facility] on 06/01/24. Per Alondra Portillo's OV note on 05/11/24, pt was to schedule a 6 wk follow up which is not scheduled. Does pt need to come to PCP office in addition to [facility] appt? Pt due for labwork as labs drawn on 05/11/24 showed significant decrease in kidney function. Asked pt to get it drawn in the morning if she can. Pt will go to [place] and get it drawn in the morning. Michael Puga DO 05/17/2024 6:12 PM Signed Agree with need for lab work Agree with need for follow up in Primary care but would recommend that this visit is after the visit in Cardiology DO Hossein Dow Barbara, RN 05/17/2024 6:21 PM Signed LM for pt to return the call as pt needs appt set up for around 06/22/24 which would be 6 wk f/u. Reinforce to pt to stop Lasix and get labs drawn in the AM. Sultana Catalan, GLYNN 05/17/2024 6:41 PM Signed Pt returned the call and appt made with Dr. Puga for 520 pm on 06/21/24. Pt reminded to stop Lasix and make sure to get labs drawn in AM. Sultana Catalan, RN 05/17/2024 6:58 PM Signed Pt's repeat labs ordered by Key Portillo include a NT PRO BNP, a CBC and Hepatic function panel. No repeat kidney function tests ordered and per 05/12/24 note by Key Portillo, she states that lab work showed sudden significantly decreased kidney function and that was not good and wanted to recheck lab work in 5-7 days. Pended order for repeat CMP. Michael Puga DO 05/17/2024 8:46 PM Signed Order placed for CMP DO Hossein Dow Barbara, RN 05/18/2024 9:50 AM Signed Pt would like a call back as soon as possible after her labs are resulted. Katia Marcano RN 05/18/2024 10:04 AM Signed Bhavna MAKI [facility] called in and reports Pt isn't going to be able to go out and get labs drawn today. I let her know what labs provider wanted drawn, and she is going to see what she can get. She said they lavender and green tubes with them and sometimes red. She will call us back to let us know what labs she was able to drawn. Key Portillo APRN.HATCHERY MAN 05/18/2024 10:50 AM Signed Most important is CMP to have drawn if able. Agree with below. Pt needs to discontinue lasix all together. This was ordered by [facility] after recent admission for new onset CHF exacerbation. Initially ordered for 40 mg daily, I decreased to 20 mg daily after kidney function was so poor and told pt to repeat labs in 5 days with plan to discontinue all together if swelling and weight gain remained stable with decreased. Thank you, Key Bond (more content not included)... Normal [facility] 05-12-2024 CNPN Telephone (FAMPWS) MICHAEL MEIER ([id number]) 1940 F Date Time Provider Department 05/12/24 KEY PORTILLO During your visit today, we recorded the following information about you: Sultana Catalan, RN 05/12/2024 1:21 PM Signed Pt calling back in as she states she got a call earlier that her kidney function did not look good so they decreased her Lasix by half down to 20 mg per day. Pt concerned about retaining fluid with the decreased dose. Explained to pt that she needs to repeat the labwork in 5-7 days so we can see if decreasing the Lasix improves her kidney function. Then we can reevaluated pt's swelling at that time. Pt verbalizes understanding. Key Portillo APRN.HATCHERY MAN 05/12/2024 2:23 PM Signed Agree with below. We are repeating BNP lab work in 5-7 days as well to check for this. Thank you, Key Portillo APRN.HATCHERY MAN Allergies As of Date: 05/12/2024 Noted Allergy Reaction CIPROFLOXACIN 09/05/2018 2 - Rash DEMEROL (MEPERIDINE (PF)) 02/06/2011 11 - Vomiting OPIOIDS - MORPHINE ANALOGUES 03/17/2001 5 - Intolerance Comments: nausea, dizzy, sees things OPIOIDS-MEPERIDINE AND RELATED 02/17/2001 Comments: nausea/vomiting PENICILLIN G 02/17/2001 Comments: imani PRAVACHOL (PRAVASTATIN SODIUM) 03/09/2016 14 - Other: See Comments Comments: Leg cramps SULFA (SULFONAMIDE ANTIBIOTICS) 03/17/2001 Comments: hives VICODIN (HYDROCODONE-ACETAMINOPHE* 5 - Intolerance Comments: dizzy,nausea,vomiting,headac he ZITHROMAX (AZITHROMYCIN) 05/20/2017 5 - Intolerance Date Reviewed: 05/11/2024 Reviewed by: Marisol Cano LPN - Fully Assessed Reason for Visit: Patient Question [1567] Prescriptions as of 05/12/2024 - furosemide (LASIX) 20 mg tablet Take 1 tablet by mouth once daily. - LORazepam (ATIVAN) 0.5 mg Take 1 tablet by mouth two times a day as needed (anxiety attack). - rOPINIRole (REQUIP) 1 mg tablet Take 1 tablet by mouth daily at bedtime. - PARoxetine (PAXIL) 20 mg tablet Take 1 tablet by mouth once daily. In the evening - sucralfate (CARAFATE) 100 mg/mL suspension Take 10 mL by mouth four times daily. - Omeprazole Magnesium (PRILOSEC OTC) 20 mg tablet Take 1 tablet by mouth once daily. - cyanocobalamin (VITAMIN B-12) 1,000 mcg tab Take 1,000 mcg by mouth once daily. - spironolactone (ALDACTONE) 25 mg tablet Take 25 mg by mouth once daily. - hydrALAZINE (APRESOLINE) 25 mg tablet Take 25 mg by mouth once daily. - albuterol HFA (PROVENTIL HFA, VENTOLIN HFA) 90 mcg/actuation inhaler Inhale 2 Puffs as instructed every 4 hours as needed. - meloxicam (MOBIC) 15 mg tablet Take 1 tablet by mouth once daily. Take with food. - fluticasone (FLOVENT) 110 mcg/actuation inhaler Inhale 1 Puff as instructed two times a day. Shake well before use. Rinse mouth after use. - levothyroxine (SYNTHROID) 50 mcg tablet Take 1 tablet by mouth daily before breakfast. In the morning, Take on empty stomach at least 30 min before eating. For thyroid. - rosuvastatin (CRESTOR) 10 mg tablet Take 1 tablet by mouth daily at bedtime. - guaiFENesin (MUCINEX) 600 mg 12 hr tablet Take 1 tablet by mouth two times a day as needed for cold/allergy symptoms. - RESTASIS 0.05 % ophthalmic emulsion - Azelastine HCl (OPTIVAR) 0.05 % ophthalmic solution - aspirin, enteric coated (ASPIRIN, ENTERIC COATED) 81 mg EC tablet Take 81 mg by mouth once daily. - PACERONE 200 mg tablet Take 200 mg by mouth once daily. - ubidecarenone (COQ-10 ORAL) Take by mouth. - diltiazem CD (CARDIZEM CD) 240 mg 24 hr capsule Take 1 capsule by mouth once daily. - losartan (COZAAR) 100 mg tablet Take 1 tablet by mouth once daily. Problem List As Of Date 05/12/2024 Noted Resolved MALIG MELANOMA TRUNK [C43.59] 02/17/2001 Melanoma of skin, site unspecified [C43.9] 01/09/2012 ALLERGIC RHINITIS NOS [J30.9] Other and unspecified hyperlipidemia [E78.5] 03/11/2015 Primary hypertension [I10] Unspecified gastritis and gastroduodenitis [535* 03/11/2015 Actinic keratosis [L57.0] 01/20/2007 03/11/2015 Other chronic dermatitis due to solar radiation*01/20/2007 01/09/2012 Scar condition and fibrosis of skin [L90.5] 01/20/2007 03/11/2015 SOLAR LENGINES///DYSCHROMIA OTHER [L81.9] 01/20/2007 01/09/2012 Other seborrheic keratosis [L82.1] 01/20/2007 01/09/2012 NEVUS///BENIGN COLIN SKIN TRUNK [D23.5] 01/20/2007 01/09/2012 NEVI///BENIGN COLIN SKIN FACE NEC [D23.30] 01/20/2007 01/09/2012 SEBACEOUS HYPERPLASIA///SEBACEOUS GLAND DIS NOS*01/20/2007 01/09/2012 DYSMETABOLIC SYNDROME X [E88.810] 07/12/2007 A-fib (HCC) [I48.91] 10/08/2010 03/11/2015 Personal history of malignant melanoma of skin *02/08/2011 Actinic skin damage [L57.8] 01/09/2012 03/11/2015 Solar Lentigines [L81.4] 01/09/2012 03/11/2015 Surgical Scars [L90.5] 01/09/2012 03/11/2015 Irriated//Inflamed Seborrheic Keratoses [L82.0] 12/01/2013 (more content not included)... [facility] MICHAEL [facility]IER ([id number]) 1940 F Date Time Provider Department 05/12/24 KEY PORTILLO During your visit today, we recorded the following information about you: Key Portillo APRN.CNP 05/12/2024 12:27 PM Addendum Please call patient and let her know that lab work results are back and show sudden significantly decreased kidney function. This is not good. We need to decrease lasix regimen --- I want to descrease to 20 mg daily and recheck lab work in 5-7 days. If SOB or swelling return within that time, please let me know. May need to discontinue all together if lab work does not improve. Would like to repeat CBC to recheck the current elevation in WBC. Both are ordered. BNP was normal so we will recheck this with decreasing lasix. Thank you, Key Portillo APRN.Marisol Welsh LPN 05/12/2024 12:48 PM Signed Spoke with pt gave information provided. Pt voices understanding. She states she spoke with you about some ativan yesterday in appointment but nothing was at [facility] when she went. Key Portillo APRN.CNP 05/12/2024 12:57 PM Signed I can send refill to pharmacy. The following approved medication requests have been transmitted electronically. Requested Prescriptions Signed Prescriptions Disp Refills furosemide (LASIX) 20 mg tablet 30 tablet 0 Sig: Take 1 tablet by mouth once daily. Authorizing Provider: KEY PORTILLO LORazepam (ATIVAN) 0.5 mg 30 tablet 2 Sig: Take 1 tablet by mouth two times a day as needed (anxiety attack). Authorizing Provider: KEY PORTILLO APRN.[place] PDMP website checked and validated. All prescriptions have been APPROPRIATELY filled. No suspicious activity was identified. 05/12/2024 by Key Portillo APRN.Jacque Arrieta MA 05/12/2024 1:04 PM Signed Pt informed Jacque Machuca MA Allergies As of Date: 05/12/2024 Noted Allergy Reaction CIPROFLOXACIN 09/05/2018 2 - Rash DEMEROL (MEPERIDINE (PF)) 02/06/2011 11 - Vomiting OPIOIDS - MORPHINE ANALOGUES 03/17/2001 5 - Intolerance Comments: nausea, dizzy, sees things OPIOIDS-MEPERIDINE AND RELATED 02/17/2001 Comments: nausea/vomiting PENICILLIN G 02/17/2001 Comments: hivmyranda PRAVACHOL (PRAVASTATIN SODIUM) 03/09/2016 14 - Other: See Comments Comments: Leg cramps SULFA (SULFONAMIDE ANTIBIOTICS) 03/17/2001 Comments: hives VICODIN (HYDROCODONE-ACETAMINOPHE* 5 - Intolerance Comments: dizzy,nausea,vomiting,headac he ZITHROMAX (AZITHROMYCIN) 05/20/2017 5 - Intolerance Date Reviewed: 05/11/2024 Reviewed by: Marisol Cano LPN - Fully Assessed Reason for Visit: Results [95] Primary Visit Diagnosis:Congestive heart failure, unspecified HF chronicity, unspecified heart failure type (HCC) [I50.9] Other Visit Diagnoses:Function kidney decreased [N28.9] Anxiety [F41.9] Order(s):furosemide (LASIX) 20 mg tabletTake 1 tablet by mouth once daily.Disp: 30 tabletRfl: 0 HEPATIC FUNCTION PNL [SQHFP] Order #: [id number] FUTURE COMPLETE BLOOD COUNT AND DIFFERENTIAL [SQCBCDIF] Order #: [id number] FUTURE NT PRO BNP [SQNTBNP] Order #: [id number] FUTURE LORazepam (ATIVAN) 0.5 mgTake 1 tablet by mouth two times a day as needed (anxiety attack).Disp: 30 tabletRfl: 2 Prescriptions as of 05/12/2024 - furosemide (LASIX) 20 mg tablet Take 1 tablet by mouth once daily. - LORazepam (ATIVAN) 0.5 mg Take 1 tablet by mouth two times a day as needed (anxiety attack). - rOPINIRole (REQUIP) 1 mg tablet Take 1 tablet by mouth daily at bedtime. - PARoxetine (PAXIL) 20 mg tablet Take 1 tablet by mouth once daily. In the evening - sucralfate (CARAFATE) 100 mg/mL suspension Take 10 mL by mouth four times daily. - Omeprazole Magnesium (PRILOSEC OTC) 20 mg tablet Take 1 tablet by mouth once daily. - cyanocobalamin (VITAMIN B-12) 1,000 mcg tab Take 1,000 mcg by mouth once daily. - spironolactone (ALDACTONE) 25 mg tablet Take 25 mg by mouth once daily. - hydrALAZINE (APRESOLINE) 25 mg tablet Take 25 mg by mouth once daily. - albuterol HFA (PROVENTIL HFA, VENTOLIN HFA) 90 mcg/actuation inhaler Inhale 2 Puffs as instructed every 4 hours as needed. - meloxicam (MOBIC) 15 mg tablet Take 1 tablet by mouth once daily. Take with food. - fluticasone (FLOVENT) 110 mcg/actuation inhaler Inhale 1 Puff as instructed two times a day. Shake well before use. Rinse mouth after use. - levothyroxine (SYNTHROID) 50 mcg tablet Take 1 tablet by mouth daily before breakfast. In the morning, Take on empty stomach at least 30 min before eating. For thyroid. - rosuvastatin (CRESTOR) 10 mg tablet Take 1 tablet by mouth daily at bedtime. - guaiFENesin (MUCINEX) 600 mg 12 hr tablet Take 1 tablet by mouth two times a day as needed for cold/allergy symptoms. - RESTASIS 0.05 % ophthalmic emulsion - Azelastine HCl (OPT (more content not included)... Normal [facility] CBC W Auto Differential pane l (Bld)on 05-11-2024 Basophils (Bld) [#/Vol] 0.09 10*3/uL [facility] Basophils/100 WBC (Bld) 0.7 % [facility] Differential cell count method Nom (Bld) Auto [facility] Eosinophils (Bld) [#/Vol] 0.21 10*3/uL [facility] Eosinophils/100 WBC (Bld) 1.7 % [facility] Erythrocyte distribution width (RBC) [Ratio] 16.6 % High 11.5 - 15.0 % [facility] Hematocrit (Bld) [Volume fraction] 42.0 % 36.0 - 46.0 % [facility] Hemoglobin (Bld) [Mass/Vol] 13.4 g/dL 11.5 - 15.5 g/dL [facility] Immature granulocytes (Bld) [#/Vol] 0.05 10*3/uL [facility] Immature granulocytes/100 WBC (Bld) 0.4 % [facility] Interpretation and review of laboratory results Abnormal [facility] Lymphocytes (Bld) [#/Vol] 1.48 10*3/uL [facility] Lymphocytes/100 WBC (Bld) 12.3 % [facility] MCH (RBC) [Entitic mass] 27.2 pg 26.0 - 34.0 pg [facility] MCHC (RBC) [Mass/Vol] 31.9 g/dL 30.5 - 36.0 g/dL [facility] MCV (RBC) [Entitic vol] 85.2 fL 80.0 - 100.0 fL [facility] Monocytes (Bld) [#/Vol] 1.05 10*3/uL High NINF [facility] Monocytes/100 WBC (Bld) 8.7 % [facility] Neutrophils (Bld) [#/Vol] 9.14 10*3/uL High [facility] Neutrophils/100 WBC (Bld) 76.2 % [facility] Nucleated RBC (Bld) [#/Vol] NINF [facility] Nucleated RBC/100 WBC (Bld) [Ratio] 0.0 % /100 WBC [facility] Platelet mean volume (Bld) [Entitic vol] 11.3 fL 9.0 - 12.7 fL [facility] Platelets (Bld) [#/Vol] 346 10*3/uL [facility] RBC (Bld) [#/Vol] 4.93 10*6/uL 3.90 - 5.20 m/uL [facility] WBC (Bld) [#/Vol] 12.02 10*3/uL High [facility] Basophils (Bld) [#/Vol] 0.09 10*3/uL Normal <0.11 [facility] Comment on above: Order Comment: Speci men Type: BLOOD SPECIMENOrdering Facility: [facility] Address: [address] [place] [address] Performed By: #### 5 7021-8 ####[facility] LABCLIA [id number] [address] [place] Basophils/100 WBC (Bld) 0.7 % Normal [facility] Comment on above: Order Comment: Speci men Type: BLOOD SPECIMENOrdering Facility: [facility] Address: [address] [place] [address] Performed By: #### 5 7021-8 ####[facility] LABCLIA [id number] [place] [address] [place] Differential cell count method Nom (Bld) Auto Normal [facility] Comment on above: Order Comment: Speci men Type: BLOOD SPECIMENOrdering Facility: [facility] Address: [address] [place] [address] Performed By: #### 5 7021-8 ####[facility] LABCLIA [id number] [place] [address] [place] Eosinophils (Bld) [#/Vol] 0.21 10*3/uL Normal <0.46 [facility] Comment on above: Order Comment: Speci men Type: BLOOD SPECIMENOrdering Facility: [facility] Address: [address] [place] [address] Performed By: #### 5 7021-8 ####[facility] LABCLIA [id number] [place] [address] [place] Eosinophils/100 WBC (Bld) 1.7 % Normal [facility] Comment on above: Order Comment: Speci men Type: BLOOD SPECIMENOrdering Facility: [facility] Address: [address] [place] [address] Performed By: #### 5 7021-8 ####[facility] LABIA [id number] [place] [address] [place] Erythrocyte distribution width (RBC) [Ratio] 16.6 % High 11.5-15.0 [facility] Comment on above: Order Comment: Speci men Type: BLOOD SPECIMENOrdering Facility: [facility] Address: [address] [place] [address] Performed By: #### 5 7021-8 ####[facility] LABCLIA [id number] [place] [address] [place] Hematocrit (Bld) [Volume fraction] 42.0 % Normal .0-46.0 [facility] Comment on above: Order Comment: Speci men Type: BLOOD SPECIMENOrdering Facility: [facility] Address: [address] [place] [address] Performed By: #### 5 7021-8 ####[facility] LABCLIA [id number] [place] [address] [place] Hemoglobin (Bld) [Mass/Vol] 13.4 g/dL Normal 11.5-15.5 [facility] Comment on above: Order Comment: Speci men Type: BLOOD SPECIMENOrdering Facility: [facility] Address: [address] [place] [address] Performed By: #### 5 7021-8 ####[facility] LABIA [id number] [place] [address] [place] Immature granulocytes (Bld) [#/Vol] 0.05 10*3/uL Normal <0.10 [facility] Comment on above: Order Comment: Speci men Type: BLOOD SPECIMENOrdering Facility: [facility] Address: [address] [place] [address] Performed By: #### 5 7021-8 ####[facility] LABIA [id number] [place] [address] [place] Immature granulocytes/100 WBC (Bld) 0.4 % Normal [facility] Comment on above: Order Comment: Speci men Type: BLOOD SPECIMENOrdering Facility: [facility] Address: [address] [place] [address] Performed By: #### 5 7021-8 ####[facility] LABIA [id number] [place] [address] [place] Lymphocytes (Bld) [#/Vol] 1.48 10*3/uL Normal 1.00-4.00 [facility] Comment on above: Order Comment: Speci men Type: BLOOD SPECIMENOrdering Facility: [facility] Address: [address] [place] [address] Performed By: #### 5 7021-8 ####[facility] LABIA [id number] [place] [address] [place] Lymphocytes/100 WBC (Bld) 12.3 % Normal [facility] Comment on above: Order Comment: Speci men Type: BLOOD SPECIMENOrdering Facility: [facility] Address: [address] [place] [address] Performed By: #### 5 7021-8 ####[facility] LABIA [id number] [place] [address] [place] MCH (RBC) [Entitic mass] 27.2 pg Normal 26.0-34.0 [facility] Comment on above: Order Comment: Speci men Type: BLOOD SPECIMENOrdering Facility: [facility] Address: [address] [place] [address] Performed By: #### 5 7021-8 ####[facility] LABIA [id number] [place] [address] [place] MCHC (RBC) [Mass/Vol] 31.9 g/dL Normal 30.5-36.0 [facility] Comment on above: Order Comment: Speci men Type: BLOOD SPECIMENOrdering Facility: [facility] Address: [address] [place] [address] Performed By: #### 5 7021-8 ####[facility] LABIA [id number] [place] [address] [place] MCV (RBC) [Entitic vol] 85.2 fL Normal 80.0-100.0 [facility] Comment on above: Order Comment: Speci men Type: BLOOD SPECIMENOrdering Facility: [facility] Address: [address] [place] [address] Performed By: #### 5 7021-8 ####[facility] LABIA [id number] [place] [address] [place] Monocytes (Bld) [#/Vol] 1.05 10*3/uL High <0.87 [facility] Comment on above: Order Comment: Speci men Type: BLOOD SPECIMENOrdering Facility: [facility] Address: [address] [place] [address] Performed By: #### 5 7021-8 ####[facility] LABCLIA [id number] [place] [address] [place] Monocytes/100 WBC (Bld) 8.7 % Normal [facility] Comment on above: Order Comment: Speci men Type: BLOOD SPECIMENOrdering Facility: [facility] Address: [address] [place] [address] Performed By: #### 5 7021-8 ####[facility] LABCLIA [id number] [place] [address] [place] Neutrophils (Bld) [#/Vol] 9.14 10*3/uL High 1.45-7.50 [facility] Comment on above: Order Comment: Speci men Type: BLOOD SPECIMENOrdering Facility: [facility] Address: [address] [place] [address] Performed By: #### 5 7021-8 ####[facility] LABCLIA [id number] [place] [address] [place] Neutrophils/100 WBC (Bld) 76.2 % Normal [facility] Comment on above: Order Comment: Speci men Type: BLOOD SPECIMENOrdering Facility: [facility] Address: [address] [place] [address] Performed By: #### 5 7021-8 ####[facility] LABCLIA [id number] [place] [address] [place] Nucleated RBC (Bld) [#/Vol] 10*3/uL Normal <0.01 [facility] Comment on above: Order Comment: Speci men Type: BLOOD SPECIMENOrdering Facility: [facility] Address: [address] [place] [address] Performed By: #### 5 7021-8 ####[facility] LABCLIA [id number] [place] [address] [place] Nucleated RBC/100 WBC (Bld) [Ratio] 0.0 /100 WBC Normal [facility] Comment on above: Order Comment: Speci men Type: BLOOD SPECIMENOrdering Facility: [facility] Address: [address] [place] [address] Performed By: #### 5 7021-8 ####[facility] LABIA [id number] [place] [address] [place] Platelet mean volume (Bld) [Entitic vol] 11.3 fL Normal 9.0-12.7 [facility] Comment on above: Order Comment: Speci men Type: BLOOD SPECIMENOrdering Facility: [facility] Address: [address] [place] [address] Performed By: #### 5 7021-8 ####[facility] LABIA [id number] [place] [address] [place] Platelets (Bld) [#/Vol] 346 10*3/uL Normal 150-400 [facility] Comment on above: Order Comment: Speci men Type: BLOOD SPECIMENOrdering Facility: [facility] Address: [address] [place] [address] Performed By: #### 5 7021-8 ####[facility] LABCLIA [id number] [place] [address] [place] RBC (Bld) [#/Vol] 4.93 10*6/uL Normal 3.90-5.20 [facility] Comment on above: Order Comment: Speci men Type: BLOOD SPECIMENOrdering Facility: [facility] Address: [address] [place] [address] Performed By: #### 5 7021-8 ####[facility] LABCLIA [id number] [place] [id number] [place] WBC (Bld) [#/Vol] 12.02 10*3/uL High 3.70-11.00 [facility] Comment on above: Order Comment: Speci men Type: BLOOD SPECIMENOrdering Facility: [facility] Address: [address] [place] [address] Performed By: #### 5 7021-8 ####[facility] LABCLIA [id number] [place] [id number] [place] CNOVon 05-11-2024 CNOV Office Visit (FAMPWS ) MICHAEL MEIER ([id number]) 1940 F Date Time Provider Department 05/11/24 1:00 PM KEY PORTILLO FAMPWS During your visit today, we recorded the following information about you: Pulse Blood pressure Weight 60/minute 130/58 100.9 kg Key Portillo APRN.HATCHERY MAN 05/11/2024 2:08 PM Signed Chief Complaint Patient presents with: Transition Of Care: Was i wfor chf flae was discharged on 05/02/24 HPI Michael Meier is a 84 year old female who presents here today for Above Complaints. Michael is an established patient of Dr. Edd DO. Concerns today... Hospital discharge -- [facility] hospital admission from 04/30-05/02 d/t hypoxia and CHF exacerbation. Pt was having fatigue and dyspnea. Took her pulse ox at home and it was 83% so she hit her life alert and sent to ER. Cxr and CT chest were unremarkable besides edema and pleural effusions. Pt was admitted and started on IV lasix and 4L NC of oxygen. 4 liters of diuresis and 5 lbs lost. Hypoxia improved and discharged on no oxygen. RX for 40 mg daily lasix continued. Thyroid labs were abnormal during admission. Elevated TSH and T4. In office today... Pt reports feeling better since discharge besides fatigue and poor sleep. Pt denies any edema or swelling since discharge. Pt weight is back to baseline and maintaining this. Pt reports dyspnea improved. She has PT and HH aide coming to house to help with medications, exercise, and checking vitals. She continues on lasix regimen -- pt unsure of dosage though. Pt asking about medication regimen for RLS. Has spoke about this with Dr. Puga. Pt is able to get to sleep fine but is woken up numerous times per night. Wearing CPAP more routinely recently. Taking ativan at night without much relief. Sleeps better in recliner with head raised. Is scheduled to see Dr. Hickey on 06/01. Doing well without oxygen use at home. Past medical history, appointments, medications, allergies reviewed. Previous Medical History PAST MEDICAL HISTORY Diagnosis Date A-fib (HCC) Allergic rhinitis, cause unspecified Arrhythmia Arthritis Greater trochanteric bursitis of left hip Melanoma of skin, site unspecified 2003 back Osteoarthritis of left hip Other and unspecified hyperlipidemia Pulmonary hypertension (HCC) Situational mixed anxiety and depressive disorder Sleep apnea Stroke (HCC) Unspecified essential hypertension Unspecified gastritis and gastroduodenitis Previous Surgical History PAST SURGICAL HISTORY Procedure Laterality Date ABDOMINAL SURGERY HX APPENDECTOMY HX ARTHRP ACETBLR/PROX FEM PROSTC AGRFT/ALGRFT 12/09/2003 right hip, redone, 07/2004 [facility] ACETBLR/PROX FEM PROSTC AGRFT/ALGRFT Left 07/2016 [facility] CONDYLEANDPLATU MEDIALANDLAT COMPARTMENTS 11/15/2009 Knee replacement, total -Left - [facility] ARTHRP E CONDYLEANDPLATU MEDIALANDLAT COMPARTMENTS 12/30/2009 Right knee replaced COLONOSCOPY FLX DX W/COLLJ SPEC WHEN PFRMD 06/29/2017 Colonoscopy EGD 10/17/2020 EGD W/O [facility] SPEC VARICIES INJ 01/08/2022 EGD W/O [facility] SPEC VARICIES INJ 03/31/2024 [facility]ito ESOPHAGOGASTRODUODENOSCOPY TRANSORAL DIAGNOSTIC 11/29/2000 EGD ESOPHAGOGASTRODUODENOSCOPY TRANSORAL DIAGNOSTIC 06/29/2017 EGD JOINT REPLACEMENT HX LAPS SURG CHOLECYSTECTOMY W/CHOLANGIOGRAPHY PACEMAKER IMPLANT 01/2011 SKIN BIOPSY HX TONSILLECTOMY HX TOTAL ABDOMINAL HYSTERECT W/WO RMVL TUBE OVARY Hysterectomy, GAL Family History FAMILY HISTORY Problem Relation Age of Onset Coronary Artery Disease Mother other (cardiac arrest) Mother Coronary Artery Disease Father Diabetes Father other (congestive heart failure) Father Patient Allergies ALLERGIES Allergen Reactions Ciprofloxacin Rash Demerol [Meperidine* Vomiting Opioids - Morphine * Intolerance nausea, dizzy, sees things Opioids-Meperidine * nausea/vomiting Penicillin G hives Pravachol [Pravasta* Other: See Comments Leg cramps Sulfa (Sulfonamide * hives Vicodin [Hydrocodon* Intolerance dizzy,nausea,vomiting,headac he Zithromax [Azithrom* Intolerance Current Medications Current Outpatient Medications on File Prior to Visit Medication Sig PARoxetine (PAXIL) 20 mg tablet Take 1 tablet by mouth once daily. In the evening sucralfate (CARAFATE) 100 mg/mL suspension Take 10 mL by mouth four times daily. Omeprazole Magnesium (PRILOSEC OTC) 20 mg tablet Take 1 tablet by mouth once daily. cyanocobalamin (VITAMIN B-12) 1,000 mcg tab Take 1,000 mcg by mouth once daily. spironolactone (ALDACTONE) 25 mg tablet Take 25 mg by mouth once daily. hydrALAZINE (APRESOLINE) 25 mg tablet Take 25 mg by mouth once daily. albuterol HFA (PROVENTIL HFA, VENTOLIN HFA) 90 mcg/actuation inhaler Inhale 2 Puffs as instructed every 4 hours as needed. LORazepam (ATIVAN) 0.5 mg Take 1 tablet by (more content not included)... Normal [facility] Comprehensive metabolic 2000 panelon 05-11-2024 Albumin [Mass/Vol] 4.1 g/dL Normal 3.9-4.9 [facility] Comment on above: Order Comment: Speci men Type: BLOOD SPECIMENOrdering Facility: [facility] Address: [address] [place] [address] Performed By: #### 2 4323-8, 3016-3, 08499-4, 3024-7 ####[facility] LABCLIA [id number] [place] [address] [place] ALP [Catalytic activity/Vol] 98 U/L Normal 34-123 [facility] Comment on above: Order Comment: Speci men Type: BLOOD SPECIMENOrdering Facility: [facility] Address: [address] [place] [address] Performed By: #### 2 4323-8, 3016-3, 19852-1, 3024-7 ####[facility] LABCLIA [id number] [place] [address] [place] ALT [Catalytic activity/Vol] 26 U/L Normal 7-38 [facility] Comment on above: Order Comment: Speci men Type: BLOOD SPECIMENOrdering Facility: [facility] Address: [address] [place] [address] Performed By: #### 2 4323-8, 3016-3, 64491-9, 3024-7 ####[facility] LABCLIA [id number] [place] [address] [place] Anion gap [Moles/Vol] 15 mmol/L Normal 8-15 [facility] Comment on above: Order Comment: Speci men Type: BLOOD SPECIMENOrdering Facility: [facility] Address: [address] [place] [address] Performed By: #### 2 4323-8, 3016-3, 85712-2, 3024-7 ####[facility] LABCLIA [id number] [place] [address] [place] AST [Catalytic activity/Vol] 29 U/L Normal 13-35 [facility] Comment on above: Order Comment: Speci men Type: BLOOD SPECIMENOrdering Facility: [facility] Address: [address] [place] [address] Performed By: #### 2 4323-8, 3016-3, 76741-0, 3024-7 ####[facility] LABCLIA [id number] [place] [address] [place] Bilirubin [Mass/Vol] 0.8 mg/dL Normal 0.2-1.3 [facility] Comment on above: Order Comment: Speci men Type: BLOOD SPECIMENOrdering Facility: [facility] Address: [address] [place] [address] Performed By: #### 2 4323-8, 3016-3, 87496-1, 3024-7 ####[facility] LABCLIA [id number] [place] [address] [place] Calcium [Mass/Vol] 9.4 mg/dL Normal 8.5-10.2 [facility] Comment on above: Order Comment: Speci men Type: BLOOD SPECIMENOrdering Facility: [facility] Address: [address] [place] [address] Performed By: #### 2 4323-8, 3016-3, 46195-7, 3024-7 ####[facility] LABCLIA [id number] [place] [address] [place] Chloride [Moles/Vol] 95 mmol/L Low 98-107 [facility] Comment on above: Order Comment: Speci men Type: BLOOD SPECIMENOrdering Facility: [facility] Address: [address] [place] [address] Performed By: #### 2 4323-8, 3016-3, 49467-0, 3024-7 ####[facility] LABCLIA [id number] [place] [address] [place] CO2 [Moles/Vol] 25 mmol/L Normal 22-30 [facility] Comment on above: Order Comment: Speci men Type: BLOOD SPECIMENOrdering Facility: [facility] Address: [address] [place] [address] Performed By: #### 2 4323-8, 3016-3, 65066-2, 3024-7 ####[facility] LABCLIA [id number] [facility] [place] [address] [place] Creatinine [Mass/Vol] 1.76 mg/dL High 0.58-0.96 [facility] Comment on above: Order Comment: Lori mosqueda Type: BLOOD SPECIMENOrdering Facility: [facility] Address: [address] [place] [address] Performed By: #### 2 4323-8, 3016-3, 31963-7, 3024-7 ####[facility] LABCLIA [id number] [place] [address] [place] Creatinine and Glomerular filtration rate.predicted panel (S/P/Bld) 28 mL/min/1.73m??? Low >=60 [facility] Comment on above: Order Comment: Lori mosqueda Type: BLOOD SPECIMENOrdering Facility: [facility] Address: [address] [place] [address] Result Comment: Bina mated Glomerular Filtration Rate (eGFR) is calculated using the 2020 CKD-EPI creatinine equation. This equation utilizes serum creatinine, sex, and age as parameters. The creatinine assay has traceable calibration to isotope dilution-mass spectrometry. Refer to KDIGO guidelines for clinical interpretation. In patients with unstable renal function, e.g. those with acute kidney injury, the eGFR may not accurately reflect actual GFR. Performed By: #### 2 4323-8, 3016-3, 88157-5, 3024-7 ####[facility] LABCLIA [id number] [place] [id number] [place] Glucose [Mass/Vol] 127 mg/dL High 74-99 [facility] Comment on above: Order Comment: Lori mosqueda Type: BLOOD SPECIMENOrdering Facility: [facility] Address: [address] [place] [address] Result Comment: The [place] Diabetes Association (ADA) provides guidance for cutoff values for fasting glucose and random glucose. The ADA defines fasting as no caloric intake for at least 8 hours. Fasting plasma glucose results between 100 to 125 mg/dL indicate increased risk for diabetes (prediabetes). Fasting plasma glucose results greater than or equal to 126 mg/dL meet the criteria for diagnosis of diabetes. In the absence of unequivocal hyperglycemia, results should be confirmed by repeat testing. In a patient with classic symptoms of hyperglycemia or hyperglycemic crisis, random plasma glucose results greater than or equal to 200 mg/dL meet the criteria for diagnosis of diabetes. Reference: Standards of Medical Care in Diabetes 2016, [place] Diabetes Association. Diabetes Care. 2016.39(Suppl 1). Performed By: #### 2 4323-8, 3016-3, 07840-6, 302-7 ####[facility] LABCLIA [id number] [place] [address] [place] Potassium [Moles/Vol] 4.6 mmol/L Normal 3.7-5.1 [facility] Comment on above: Order Comment: Speci men Type: BLOOD SPECIMENOrdering Facility: [facility] Address: [address] [place] [address] Performed By: #### 2 4323-8, 3016-3, 67206-4, 7 ####[facility] LABIA [id number] [place] [address] [place] Protein [Mass/Vol] 7.1 g/dL Normal 6.3-8.0 [facility] Comment on above: Order Comment: Lori mosqueda Type: BLOOD SPECIMENOrdering Facility: [facility] Address: [address] [place] [address] Performed By: #### 2 4323-8, 3016-3, 82071-5, 7 ####[facility] LABCLIA [id number] [place] [address] [place] Sodium [Moles/Vol] 135 mmol/L Low 136-144 [facility] Comment on above: Order Comment: Speci men Type: BLOOD SPECIMENOrdering Facility: [facility] Address: [address] [place] [address] Performed By: #### 2 4323-8, 3016-3, 02561-4, 302-7 ####[facility] LABCLIA [id number] [place] [id number] [place] Urea nitrogen [Mass/Vol] 42 mg/dL High 7-21 [facility] Comment on above: Order Comment: Speci men Type: BLOOD SPECIMENOrdering Facility: [facility] Address: [address] [place] [address] Performed By: #### 2 4323-8, 3016-3, 49562-9, 3024-7 ####[facility] LABIA [id number] [place] [address] [place] NT-proBNP SerPl-mCncon 05-11 Natriuretic peptide.B prohormone N-Terminal [Mass/Vol] 117 pg/mL Normal <450 [facility] Comment on above: Order Comment: Speci men Type: BLOOD SPECIMENOrdering Facility: [facility] Address: [address] [place] [address] Performed By: #### 2 4323-8, 3016-3, 47783-4, 302-7 ####[facility] LABIA [id number] [place] [address] [place] T4 Free SerPl-mCncon 025 Free T4 [Mass/Vol] 2.0 ng/dL High 0.9-1.7 [facility] Comment on above: Order Comment: Speci men Type: BLOOD SPECIMENOrdering Facility: [facility] Address: [address] [place] [address] Performed By: #### 2 4323-8, 3016-3, 58881-2, 3024-7 ####[facility] LABIA [id number] [place] [id number] [place] TSH SerPl-aCncon 05-11-2024 TSH Qn 2.320 m[IU]/L Normal 0.270-4.20 0 [facility] Comment on above: Order Comment: Speci men Type: BLOOD SPECIMENOrdering Facility: [facility] Address: [address] [place] [address] Performed By: #### 2 4323-8, 3016-3, 76590-1, 3024-7 ####[facility] JONAS [id number] [place] [id number] [place] Priscila 05-08-2024 CNPN Telephone (FAMPWS) MICHAEL MEIER ([id number]) 1940 F Date Time Provider Department 05/08/24 [facility] your visit today, we recorded the following information about you: Amanda Pratt RN 05/08/2024 9:01 AM Signed Marifer with [facility] calls to let provider know that patient is having increasing pain with RLS especially at night. Marifer asking if provider would order medication. Patient not currently taking any medication for RLS. Patient previously scheduled for hospital follow up on 05/11/2024 with Key Portillo. GLYNN Montiel Jordan L, DO 05/08/2024 10:36 AM Signed Will have her discuss with Key at office visit DO Bandar Dow Alyson Taylor, APRN.CARMELINA 05/08/2024 10:47 AM Signed Noted. Will address then. Thank you, Key Portillo APRN.HATCHERY MAN Allergies As of Date: 05/08/2024 Noted Allergy Reaction CIPROFLOXACIN 09/05/2018 2 - Rash DEMEROL (MEPERIDINE (PF)) 02/06/2011 11 - Vomiting OPIOIDS - MORPHINE ANALOGUES 03/17/2001 5 - Intolerance Comments: nausea, dizzy, sees things OPIOIDS-MEPERIDINE AND RELATED 02/17/2001 Comments: nausea/vomiting PENICILLIN G 02/17/2001 Comments: imani PRAVACHOL (PRAVASTATIN SODIUM) 03/09/2016 14 - Other: See Comments Comments: Leg cramps SULFA (SULFONAMIDE ANTIBIOTICS) 03/17/2001 Comments: hives VICODIN (HYDROCODONE-ACETAMINOPHE* 5 - Intolerance Comments: dizzy,nausea,vomiting,headac he ZITHROMAX (AZITHROMYCIN) 05/20/2017 5 - Intolerance Date Reviewed: 04/10/2024 Reviewed by: Sharon Jarrett APRN.HATCHERY MAN - Fully Assessed Reason for Visit: Patient Update [1234] Prescriptions as of 05/08/2024 - PARoxetine (PAXIL) 20 mg tablet Take 1 tablet by mouth once daily. In the evening - sucralfate (CARAFATE) 100 mg/mL suspension Take 10 mL by mouth four times daily. - Omeprazole Magnesium (PRILOSEC OTC) 20 mg tablet Take 1 tablet by mouth once daily. - cyanocobalamin (VITAMIN B-12) 1,000 mcg tab Take 1,000 mcg by mouth once daily. - spironolactone (ALDACTONE) 25 mg tablet Take 25 mg by mouth once daily. - hydrALAZINE (APRESOLINE) 25 mg tablet Take 25 mg by mouth once daily. - albuterol HFA (PROVENTIL HFA, VENTOLIN HFA) 90 mcg/actuation inhaler Inhale 2 Puffs as instructed every 4 hours as needed. - LORazepam (ATIVAN) 0.5 mg Take 1 tablet by mouth two times a day as needed (anxiety attack). - meloxicam (MOBIC) 15 mg tablet Take 1 tablet by mouth once daily. Take with food. - fluticasone (FLOVENT) 110 mcg/actuation inhaler Inhale 1 Puff as instructed two times a day. Shake well before use. Rinse mouth after use. - levothyroxine (SYNTHROID) 50 mcg tablet Take 1 tablet by mouth daily before breakfast. In the morning, Take on empty stomach at least 30 min before eating. For thyroid. - rosuvastatin (CRESTOR) 10 mg tablet Take 1 tablet by mouth daily at bedtime. - guaiFENesin (MUCINEX) 600 mg 12 hr tablet Take 1 tablet by mouth two times a day as needed for cold/allergy symptoms. - RESTASIS 0.05 % ophthalmic emulsion - Azelastine HCl (OPTIVAR) 0.05 % ophthalmic solution - aspirin, enteric coated (ASPIRIN, ENTERIC COATED) 81 mg EC tablet Take 81 mg by mouth once daily. - PACERONE 200 mg tablet Take 200 mg by mouth once daily. - ubidecarenone (COQ-10 ORAL) Take by mouth. - diltiazem CD (CARDIZEM CD) 240 mg 24 hr capsule Take 1 capsule by mouth once daily. - losartan (COZAAR) 100 mg tablet Take 1 tablet by mouth once daily. Problem List As Of Date 05/08/2024 Noted Resolved MALIG MELANOMA TRUNK [C43.59] 02/17/2001 Melanoma of skin, site unspecified [C43.9] 01/09/2012 ALLERGIC RHINITIS NOS [J30.9] Other and unspecified hyperlipidemia [E78.5] 03/11/2015 Primary hypertension [I10] Unspecified gastritis and gastroduodenitis [535* 03/11/2015 Actinic keratosis [L57.0] 01/20/2007 03/11/2015 Other chronic dermatitis due to solar radiation*01/20/2007 01/09/2012 Scar condition and fibrosis of skin [L90.5] 01/20/2007 03/11/2015 SOLAR LENGINES///DYSCHROMIA OTHER [L81.9] 01/20/2007 01/09/2012 Other seborrheic keratosis [L82.1] 01/20/2007 01/09/2012 NEVUS///BENIGN COLIN SKIN TRUNK [D23.5] 01/20/2007 01/09/2012 NEVI///BENIGN COLIN SKIN FACE NEC [D23.30] 01/20/2007 01/09/2012 SEBACEOUS HYPERPLASIA///SEBACEOUS GLAND DIS NOS*01/20/2007 01/09/2012 DYSMETABOLIC SYNDROME X [E88.810] 07/12/2007 A-fib (HCC) [I48.91] 10/08/2010 03/11/2015 Personal history of malignant melanoma of skin *02/08/2011 Actinic skin damage [L57.8] 01/09/2012 03/11/2015 Solar Lentigines [L81.4] 01/09/2012 03/11/2015 Surgical Scars [L90.5] 01/09/2012 03/11/2015 Irriated//Inflamed Seborrheic Keratoses [L82.0] 12/01/2013 03/11/2015 Other Seborrheic Keratoses [L82.1] 12/01/2013 03/11/2015 Xerosis cutis [L85.3] 12/01/2013 03/11/2015 Cutaneous skin tags [L91.8] 12/01/2013 03/11/2015 Hyperlipidemia [E78 (more content not included)... Normal [facility] CNPNon 05-05-2024 CNPN Telephone (FAMPWS) MICHAEL MEIER ([id number]) 1940 F Date Time Provider Department 05/05/24 MICHAEL PUGA FAMPWS During your visit today, we recorded the following information about you: Katia Marcano RN 05/05/2024 4:02 PM Signed Sergio PT with [facility] called in and reports they will be seeing Pt twice a week for 3 weeks for functional mobility training. Michael Puga DO 05/05/2024 4:40 PM Signed Noted Michael Puga DO Allergies As of Date: 05/05/2024 Noted Allergy Reaction CIPROFLOXACIN 09/05/2018 2 - Rash DEMEROL (MEPERIDINE (PF)) 02/06/2011 11 - Vomiting OPIOIDS - MORPHINE ANALOGUES 03/17/2001 5 - Intolerance Comments: nausea, dizzy, sees things OPIOIDS-MEPERIDINE AND RELATED 02/17/2001 Comments: nausea/vomiting PENICILLIN G 02/17/2001 Comments: hives PRAVACHOL (PRAVASTATIN SODIUM) 03/09/2016 14 - Other: See Comments Comments: Leg cramps SULFA (SULFONAMIDE ANTIBIOTICS) 03/17/2001 Comments: hives VICODIN (HYDROCODONE-ACETAMINOPHE* 5 - Intolerance Comments: dizzy,nausea,vomiting,headac he ZITHROMAX (AZITHROMYCIN) 05/20/2017 5 - Intolerance Date Reviewed: 04/10/2024 Reviewed by: Sharon Jarrett APRN.HATCHERY MAN - Fully Assessed Reason for Visit: Home Health Point of Care Results [4062] Prescriptions as of 05/05/2024 - PARoxetine (PAXIL) 20 mg tablet Take 1 tablet by mouth once daily. In the evening - sucralfate (CARAFATE) 100 mg/mL suspension Take 10 mL by mouth four times daily. - Omeprazole Magnesium (PRILOSEC OTC) 20 mg tablet Take 1 tablet by mouth once daily. - cyanocobalamin (VITAMIN B-12) 1,000 mcg tab Take 1,000 mcg by mouth once daily. - spironolactone (ALDACTONE) 25 mg tablet Take 25 mg by mouth once daily. - hydrALAZINE (APRESOLINE) 25 mg tablet Take 25 mg by mouth once daily. - albuterol HFA (PROVENTIL HFA, VENTOLIN HFA) 90 mcg/actuation inhaler Inhale 2 Puffs as instructed every 4 hours as needed. - LORazepam (ATIVAN) 0.5 mg Take 1 tablet by mouth two times a day as needed (anxiety attack). - meloxicam (MOBIC) 15 mg tablet Take 1 tablet by mouth once daily. Take with food. - fluticasone (FLOVENT) 110 mcg/actuation inhaler Inhale 1 Puff as instructed two times a day. Shake well before use. Rinse mouth after use. - levothyroxine (SYNTHROID) 50 mcg tablet Take 1 tablet by mouth daily before breakfast. In the morning, Take on empty stomach at least 30 min before eating. For thyroid. - rosuvastatin (CRESTOR) 10 mg tablet Take 1 tablet by mouth daily at bedtime. - guaiFENesin (MUCINEX) 600 mg 12 hr tablet Take 1 tablet by mouth two times a day as needed for cold/allergy symptoms. - RESTASIS 0.05 % ophthalmic emulsion - Azelastine HCl (OPTIVAR) 0.05 % ophthalmic solution - aspirin, enteric coated (ASPIRIN, ENTERIC COATED) 81 mg EC tablet Take 81 mg by mouth once daily. - PACERONE 200 mg tablet Take 200 mg by mouth once daily. - ubidecarenone (COQ-10 ORAL) Take by mouth. - diltiazem CD (CARDIZEM CD) 240 mg 24 hr capsule Take 1 capsule by mouth once daily. - losartan (COZAAR) 100 mg tablet Take 1 tablet by mouth once daily. Problem List As Of Date 05/05/2024 Noted Resolved MALIG MELANOMA TRUNK [C43.59] 02/17/2001 Melanoma of skin, site unspecified [C43.9] 01/09/2012 ALLERGIC RHINITIS NOS [J30.9] Other and unspecified hyperlipidemia [E78.5] 03/11/2015 Primary hypertension [I10] Unspecified gastritis and gastroduodenitis [535* 03/11/2015 Actinic keratosis [L57.0] 01/20/2007 03/11/2015 Other chronic dermatitis due to solar radiation*01/20/2007 01/09/2012 Scar condition and fibrosis of skin [L90.5] 01/20/2007 03/11/2015 SOLAR LENGINES///DYSCHROMIA OTHER [L81.9] 01/20/2007 01/09/2012 Other seborrheic keratosis [L82.1] 01/20/2007 01/09/2012 NEVUS///BENIGN COLIN SKIN TRUNK [D23.5] 01/20/2007 01/09/2012 NEVI///BENIGN COLIN SKIN FACE NEC [D23.30] 01/20/2007 01/09/2012 SEBACEOUS HYPERPLASIA///SEBACEOUS GLAND DIS NOS*01/20/2007 01/09/2012 DYSMETABOLIC SYNDROME X [E88.810] 07/12/2007 A-fib (HCC) [I48.91] 10/08/2010 03/11/2015 Personal history of malignant melanoma of skin *02/08/2011 Actinic skin damage [L57.8] 01/09/2012 03/11/2015 Solar Lentigines [L81.4] 01/09/2012 03/11/2015 Surgical Scars [L90.5] 01/09/2012 03/11/2015 Irriated//Inflamed Seborrheic Keratoses [L82.0] 12/01/2013 03/11/2015 Other Seborrheic Keratoses [L82.1] 12/01/2013 03/11/2015 Xerosis cutis [L85.3] 12/01/2013 03/11/2015 Cutaneous skin tags [L91.8] 12/01/2013 03/11/2015 Hyperlipidemia [E78.5] 03/11/2015 08/16/2015 Paroxysmal atrial fibrillation (HCC) [I48.0] 03/11/2015 BMI 37.0-37.9, adult [Z68.37] 03/11/2015 08/16/2015 BMI 38.0-38.9,adult [Z68.38] 08/16/2015 Daytime somnolence [R40.0] 08/16/2015 Hyperlipidemia [E78.5] 10/25/2015 JOSE on CPAP [G47.33] 03/09/2016 Anxiety [F41.9] 11/10/2016 Elevated fasting blood sugar [R73.01] 11/10/2016 (more content not included)... Normal [facility] CNPNon 05-04-2024 CNPN Telephone (FAMPWS) MICHAEL MEIER ([id number]) 1940 F Date Time Provider Department 05/04/24 [facility] During your visit today, we recorded the following information about you: Aly Tolentino LPN 05/04/2024 2:34 PM Signed Suha from [facility] calling with plan of care. Only need to call her back if pcp not agreeable with orders. They will be seeing pt 1x wk for 1 wk then 2xs wk for 3 wks then 1x wk for 1 wk for disease and medication education. CAROLINE Jose Jordan L, DO 05/05/2024 8:36 AM Signed Ok with orders DO Brigette Dow [place], MA 05/05/2024 8:54 AM Signed Suha informed Jacque Machuca MA Allergies As of Date: 05/04/2024 Noted Allergy Reaction CIPROFLOXACIN 09/05/2018 2 - Rash DEMEROL (MEPERIDINE (PF)) 02/06/2011 11 - Vomiting OPIOIDS - MORPHINE ANALOGUES 03/17/2001 5 - Intolerance Comments: nausea, dizzy, sees things OPIOIDS-MEPERIDINE AND RELATED 02/17/2001 Comments: nausea/vomiting PENICILLIN G 02/17/2001 Comments: imani PRAVACHOL (PRAVASTATIN SODIUM) 03/09/2016 14 - Other: See Comments Comments: Leg cramps SULFA (SULFONAMIDE ANTIBIOTICS) 03/17/2001 Comments: imani VICODIN (HYDROCODONE-ACETAMINOPHE* 5 - Intolerance Comments: dizzy,nausea,vomiting,headac he ZITHROMAX (AZITHROMYCIN) 05/20/2017 5 - Intolerance Date Reviewed: 04/10/2024 Reviewed by: Sharon Jarrett APRN.HATCHERY MAN - Fully Assessed Reason for Visit: Home Health Plan of Care [Other] Prescriptions as of 05/05/2024 - sucralfate (CARAFATE) 100 mg/mL suspension Take 10 mL by mouth four times daily. - Omeprazole Magnesium (PRILOSEC OTC) 20 mg tablet Take 1 tablet by mouth once daily. - cyanocobalamin (VITAMIN B-12) 1,000 mcg tab Take 1,000 mcg by mouth once daily. - spironolactone (ALDACTONE) 25 mg tablet Take 25 mg by mouth once daily. - hydrALAZINE (APRESOLINE) 25 mg tablet Take 25 mg by mouth once daily. - albuterol HFA (PROVENTIL HFA, VENTOLIN HFA) 90 mcg/actuation inhaler Inhale 2 Puffs as instructed every 4 hours as needed. - LORazepam (ATIVAN) 0.5 mg Take 1 tablet by mouth two times a day as needed (anxiety attack). - meloxicam (MOBIC) 15 mg tablet Take 1 tablet by mouth once daily. Take with food. - fluticasone (FLOVENT) 110 mcg/actuation inhaler Inhale 1 Puff as instructed two times a day. Shake well before use. Rinse mouth after use. - levothyroxine (SYNTHROID) 50 mcg tablet Take 1 tablet by mouth daily before breakfast. In the morning, Take on empty stomach at least 30 min before eating. For thyroid. - PARoxetine (PAXIL) 20 mg tablet Take 1 tablet by mouth once daily. In the evening - rosuvastatin (CRESTOR) 10 mg tablet Take 1 tablet by mouth daily at bedtime. - guaiFENesin (MUCINEX) 600 mg 12 hr tablet Take 1 tablet by mouth two times a day as needed for cold/allergy symptoms. - RESTASIS 0.05 % ophthalmic emulsion - Azelastine HCl (OPTIVAR) 0.05 % ophthalmic solution - aspirin, enteric coated (ASPIRIN, ENTERIC COATED) 81 mg EC tablet Take 81 mg by mouth once daily. - PACERONE 200 mg tablet Take 200 mg by mouth once daily. - ubidecarenone (COQ-10 ORAL) Take by mouth. - diltiazem CD (CARDIZEM CD) 240 mg 24 hr capsule Take 1 capsule by mouth once daily. - losartan (COZAAR) 100 mg tablet Take 1 tablet by mouth once daily. Problem List As Of Date 05/04/2024 Noted Resolved MALIG MELANOMA TRUNK [C43.59] 02/17/2001 Melanoma of skin, site unspecified [C43.9] 01/09/2012 ALLERGIC RHINITIS NOS [J30.9] Other and unspecified hyperlipidemia [E78.5] 03/11/2015 Primary hypertension [I10] Unspecified gastritis and gastroduodenitis [535* 03/11/2015 Actinic keratosis [L57.0] 01/20/2007 03/11/2015 Other chronic dermatitis due to solar radiation*01/20/2007 01/09/2012 Scar condition and fibrosis of skin [L90.5] 01/20/2007 03/11/2015 SOLAR LENGINES///DYSCHROMIA OTHER [L81.9] 01/20/2007 01/09/2012 Other seborrheic keratosis [L82.1] 01/20/2007 01/09/2012 NEVUS///BENIGN COLIN SKIN TRUNK [D23.5] 01/20/2007 01/09/2012 NEVI///BENIGN COLIN SKIN FACE NEC [D23.30] 01/20/2007 01/09/2012 SEBACEOUS HYPERPLASIA///SEBACEOUS GLAND DIS NOS*01/20/2007 01/09/2012 DYSMETABOLIC SYNDROME X [E88.810] 07/12/2007 A-fib (HCC) [I48.91] 10/08/2010 03/11/2015 Personal history of malignant melanoma of skin *02/08/2011 Actinic skin damage [L57.8] 01/09/2012 03/11/2015 Solar Lentigines [L81.4] 01/09/2012 03/11/2015 Surgical Scars [L90.5] 01/09/2012 03/11/2015 Irriated//Inflamed Seborrheic Keratoses [L82.0] 12/01/2013 03/11/2015 Other Seborrheic Keratoses [L82.1] 12/01/2013 03/11/2015 Xerosis cutis [L85.3] 12/01/2013 03/11/2015 Cutaneous skin tags [L91.8] 12/01/2013 03/11/2015 Hyperlipidemia [E78.5] 03/11/2015 08/16/2015 Paroxysmal atrial fibrillation (HCC) [I48.0] 03/11/2015 BMI 37.0-37.9, adult [Z68.37] 03/11/2015 08/16/2015 BMI 38.0-38.9,a (more content not included)... Normal [facility] [place] Absolute neutrophil countOrd ered By: Jonny Vicente on 05-02-2024 Neutrophils (Bld) [#/Vol] 4.4 10*3/uL 2.0-7.7 [facility] Basic Metabolic Profile (BMP )on 05-02-2024 BUN/CRE 29.7 RATIO High 10-20 [facility] Comment on above: Performed By: #### L 100.0100, L500.2500 #### [facility] [address] [place], [address] CA,Total 8.7 mg/dL Normal 8.5-10.1 [facility] Comment on above: Performed By: #### L 100.0100, L500.2500 #### [facility] [address] [place], [address] Chloride [Moles/Vol] 100 mmol/L Normal 98-107 [facility] Comment on above: Performed By: #### L 100.0100, L500.2500 #### [facility] [address] [facility] [place], [address] CO2 [Moles/Vol] 33.0 mmol/L High 21.0-32.0 [facility] Comment on above: Performed By: #### L 100.0100, L500.2500 #### [facility] [address] [place], [address] Creatinine [Mass/Vol] 0.74 mg/dL Normal 0.55-1.02 [facility] Comment on above: Result Comment: The validity of the calculated GFR GFRAA in patients over 70 years has not been determined. Clinical correlation is essential. Performed By: #### L 100.0100, L500.2500 #### [facility] [address] [place], [address] ECRCL 63.05 ml/min Normal [facility] Comment on above: Performed By: #### L 100.0100, L500.2500 #### [facility] [address] [place], [address] EST GFR - AA 96 mL/min Normal >60 [facility] Comment on above: Result Comment: Afri can Japanese GFR Calc Performed By: #### L 100.0100, L500.2500 #### [facility] [address] [place], [address] GAP 7 Normal 5-15 [facility] Comment on above: Performed By: #### L 100.0100, L500.2500 #### [facility] [address] [place], [address] GFR/1.73 sq M.predicted among non-blacks MDRD (S/P/Bld) [Vol rate/Area] 80 mL/min/{1.73_m2} Normal >60 [facility] Comment on above: Result Comment: Non- GFR Calc Performed By: #### L 100.0100, L500.2500 #### [facility] [address] [place], [address] Glucose [Mass/Vol] 109 mg/dL High 74-106 [facility] Comment on above: Result Comment: Fast ing Glucose result from 100 to 125 mg/dL suggests IMPAIRED HOMEOSTASIS per A.D.A. criteria. Performed By: #### L 100.0100, L500.2500 #### [facility] [address] [place], [address] Potassium [Moles/Vol] 3.3 mmol/L Low 3.5-5.1 [facility] Comment on above: Performed By: #### L 100.0100, L500.2500 #### [facility] [address] [place], [address] Sodium [Moles/Vol] 139 mmol/L Normal 136-145 [facility] Comment on above: Performed By: #### L 100.0100, L500.2500 #### [facility] [address] [place], [address] Urea nitrogen [Mass/Vol] 22 mg/dL High 7-18 [facility] Comment on above: Performed By: #### L 100.0100, L500.2500 #### [facility] [address] [place], [address] Basophil percentageOrdered B y: Jonny Vicente on 05-02-2024 Basophils/100 WBC (Bld) 0.7 % 0-1 [facility] Blood urea nitrogen (BUN)/cr eatinine ratioOrdered By: Jonny Vicente on 05-02-2024 Urea nitrogen/Creatinine [Mass ratio] 29.7 mg/mg High 10-20 [facility] CBC W/Diff, Automatedon 12-3 Absolute Lymph 1.38 X10 3/uL Normal 0.83-4.51 [facility] Comment on above: Performed By: #### L 100.0100, L500.2500 #### [facility] [address] [place], [address] Absolute Neut 4.4 X10 3/uL Normal 2.0-7.7 [facility] Comment on above: Performed By: #### L 100.0100, L500.2500 #### [facility] [address] [place], [address] Basophils/100 WBC (Bld) 0.7 % Normal 0-1 [facility] Comment on above: Performed By: #### L 100.0100, L500.2500 #### [facility] [address] [place], [address] Eosinophils/100 WBC (Bld) 3.6 % Normal 0-5 [facility] Comment on above: Performed By: #### L 100.0100, L500.2500 #### [facility] [address] [place], [address] Erythrocyte distribution width (RBC) [Ratio] 16.2 % High 11.6-14.6 [facility] Comment on above: Performed By: #### L 100.0100, L500.2500 #### [facility] [address] [place], [address] Hematocrit (Bld) [Volume fraction] 34.8 % Low 37-47 [facility] Comment on above: Performed By: #### L 100.0100, L500.2500 #### [facility] [address] [place], [address] Hemoglobin (Bld) [Mass/Vol] 11.2 g/dL Low 12.0-15.0 [facility] Comment on above: Performed By: #### L 100.0100, L500.2500 #### [facility] [address] [place], [address] IG% 0.300 Normal 0.0-0.9 [facility] Comment on above: Result Comment: IG% - Immature Granulocytes (promyelocytes, myelocytes and metamyelocytes) > 1% indicates that a LEFT SHIFT is Present. Performed By: #### L 100.0100, L500.2500 #### [facility] [address] [place], [address] Lymphocytes/100 WBC (Bld) 19.8 % Normal 19-41 [facility] Comment on above: Performed By: #### L 100.0100, L500.2500 #### [facility] [address] [place], [address] MCH (RBC) [Entitic mass] 27.7 pg Normal 27.0-32.0 [facility] Comment on above: Performed By: #### L 100.0100, L500.2500 #### [facility] [address] [place], [address] MCHC (RBC) [Mass/Vol] 32.2 g/dL Normal 32-36 [facility] Comment on above: Performed By: #### L 100.0100, L500.2500 #### [facility] [address] [place], [address] MCV (RBC) [Entitic vol] 85.9 fL Normal 81-99 [facility] Comment on above: Performed By: #### L 100.0100, L500.2500 #### [facility] [address] [place], [address] Monocytes/100 WBC (Bld) 11.9 % High 0-10 [facility] Comment on above: Performed By: #### L 100.0100, L500.2500 #### [facility] [address] [place], [address] Neutrophils/100 WBC (Bld) 63.7 % Normal 47-70 [facility] Comment on above: Performed By: #### L 100.0100, L500.2500 #### [facility] [address] [place], [address] Nucleated RBC (Bld) [#/Vol] 0 10*3/uL Normal 0-5 [facility] Comment on above: Performed By: #### L 100.0100, L500.2500 #### [facility] [address] [place], [address] Platelet mean volume (Bld) [Entitic vol] 10.8 fL Normal 6.2-12.0 [facility] Comment on above: Performed By: #### L 100.0100, L500.2500 #### [facility] [address] [place], [address] Platelets (Bld) [#/Vol] 241 10*3/uL Normal 150-450 [facility] Comment on above: Performed By: #### L 100.0100, L500.2500 #### [facility] [address] [place], [address] RBC (Bld) [#/Vol] 4.05 10*6/uL Low 4.2-5.4 [place] Comment on above: Performed By: #### L 100.0100, L500.2500 #### [facility] [address] [place], [address] RDW SD 51.3 fl High 35.1-43.9 [facility] Comment on above: Performed By: #### L 100.0100, L500.2500 #### [facility] [address] [place], [address] WBC (Bld) [#/Vol] 7.0 10*3/uL Normal 4.4-11.0 [facility] Comment on above: Performed By: #### L 100.0100, L500.2500 #### [facility] [address] [place], [address] Carbon dioxide measurementOr dered By: Jonny Vicente on 05-02-2024 CO2 [Moles/Vol] 33.0 mmol/L High 21.0-32.0 [facility] Chloride measurementOrdered By: Jonny Vicente on 05-02-2024 Chloride [Moles/Vol] 100 mmol/L 98-107 [facility] Discharge Instructionon 12-3 Discharge Instruction [facility] Medical Records Department [address] [place] [address] Instructions for Home/Discharge Instructions 05/02/24 1102 MR#: [id number] Acct: [id number] Name: MICHAEL MEIER Rep #: [id number] : 1940 84 From: Jonny Vicente MD PCP: Dr. Michael Puga, DO Status:ADM IN Discharge Instructions Diet Discharge Diet: Low fat / Low cholesterol and 6 Cup Fluid Restriction DC O2, CPAP, BIPAP needs RN Home O2 Qualification: Home O2 Qualification: Is the patient on home oxygen No 05/02/24 09:28 Home O2 Qualification: AT REST 1- Pulse Ox at rest 97 05/02/24 09:28 Home O2 Qualification: WITH AMBULATION 1- Pulse Ox with ambulation 92 05/02/24 09:28 1- Oxygen Flow Rate with 0 05/02/24 09:28 ambulation PSN CPAP BiPAP: BiPAP CPAP Settings per PSN Mode BiPAP 05/02/24 01:40 Bipap Delivery Device Face Mask 05/02/24 01:40 BiPAP Inspiratory Pressure 10 05/02/24 01:40 BiPAP Expiratory Pressure 5 05/02/24 01:40 BiPAP Rate 12 05/02/24 01:40 Fraction of Inspired Oxygen ( 30 05/02/24 01:40 FIO2) Home O2 Discharge instructions: No Dressing / Incision Discharge Activity: Return to Normal Activity Dressing / Incision Call your doctor if you observe: Fever of 101 or Higher, Shortness of breath, Dizziness, Fainting spells, Swelling in the ankles, Chest pain and Increased palpitations (irregular heartbeat) Follow Up Care Test Results: Test results from this visit will be discussed in further detail at your follow-up appointment, if applicable. Discharge Plan Admission Admit Date/Time: 04/30/24 09:27 Attending Provider: oJnny Vicente Primary Care Provider: Michael Puga Consulting Providers: Susan Duran Instructions Additional Instructions / Restrictions: Follow-up with your PCP as an outpatient to monitor your renal function since you are being started on Lasix which is a diuretic. Discharge Orders/Prescriptions Prescriptions: New furosemide [Lasix] 40 mg tablet 40 mg PO DAILY Qty: 30 0RF Continued aspirin [Adult Low Dose Aspirin] 81 mg tablet,delayed release (DR/EC) 81 mg PO QDAY Qty: 90 3RF rosuvastatin 10 mg tablet 10 mg PO DAILY coenzyme Q10 [Co Q-10] 100 mg capsule 100 mg PO DAILY sucralfate 100 mg/mL suspension 10 ml PO TID PRN (Reason: digestion) Patient Comments: TAKE 10 ML BY MOUTH 4 TIMES DAILY cholecalciferol (vitamin D3) 50 mcg (2,000 unit) capsule 50 mcg PO DAILY paroxetine HCl 20 mg tablet 20 mg PO QHS levothyroxine 50 mcg capsule 50 mcg PO QDAY spironolactone 25 mg tablet 25 mg PO DAILY Qty: 30 11RF lorazepam 0.5 MG tablet 0.5 mg PO BID PRN PRN (Reason: Anxiety) cyclosporine [Restasis] 0.05 % dropperette 1 drp EACH EYE Q12H albuterol sulfate [ProAir HFA] 90 mcg/actuation HFA aerosol inhaler 2 puff inhalation Q6H PRN (Reason: shortness of breath or wheezing) Qty: 6.7 0RF azelastine 0.05 % drops 1 drp ophthalmic (eye) BID vitamin B complex [Balanced B-50] Tablet 1 tab PO DAILY fluticasone propionate 110 mcg/actuation HFA aerosol inhaler 1 inh inhalation Q12H guaifenesin [Mucus Relief ER] 600 mg tablet extended release 12hr 600 mg PO BID PRN (Reason: congestion) hydrochlorothiazide 12.5 mg capsule 12.5 mg PO DAILY meloxicam 15 mg tablet 15 mg PO DAILY hydralazine 25 mg tablet 25 mg PO DAILY diltiazem HCl 240 mg capsule,extended release 24hr 240 mg PO QHS Qty: 90 3RF losartan 100 mg tablet 100 mg PO DAILY Qty: 90 3RF amiodarone 200 mg tablet 200 mg PO DAILY Qty: 90 0RF Referrals / Follow Up: Michael Puga DO [Primary Care Provider] - Within 1 Week Disposition Disposition (needs filled in before D/C Order can be placed): Home, Self Care 05/02/24 1105 Jonny Vicente MD CC: Dr. Susan Duran MD; Dr. Michael Puga DO Signed Normal [facility] Eosinophil percentageOrdered By: Jonny Vicente on 05-02-2024 Eosinophils/100 WBC (Bld) 3.6 % 0-5 [facility] Erythrocyte distribution wid th ratioOrdered By: Jonny Vicente on 05-02-2024 Erythrocyte distribution width (RBC) [Ratio] 16.2 % High 11.6-14.6 [facility] Erythrocyte distribution wid th standard deviationOrdered By: Jonny Vicente on 05-02-2024 Erythrocyte distribution width (RBC) [Entitic vol] 51.3 fL High 35.1-43.9 [facility] Estimated glomerular filtrat ion rate (GFR) AmericanOrdered By: Jonny Vicente on 05-02-2024 Estimated GFR (MDRD) Amer 96 mL/min >60 [facility] Comment on above: GFR Calc Estimation of creatinine demetrius aranceOrdered By: Jonny Vicente on 05-02-2024 Estimated Creatinine Clearance Calc 63.05 ml/min [facility] Glomerular filtration rate ( GFR) estimationOrdered By: Jonny Vicente on 05-02-2024 Estimated GFR (MDRD) Non-Af Amer 80 mL/min >60 [facility] Comment on above: Non- GFR Calc Glucose measurementOrdered B y: Jonny Vicente on 05-02-2024 Glucose [Mass/Vol] 109 mg/dL High 74-106 [facility] Comment on above: Fasting Glucose resu lt from 100 to 125 mg/dL suggests IMPAIRED HOMEOSTASIS per A.D.A. criteria. Hematocrit Auto (Bld) [Volum e fraction]Ordered By: Jonny Vicente on 05-02-2024 Hematocrit (Bld) [Volume fraction] 34.8 % Low 37-47 [facility] Hemoglobin measurementOrdere d By: Jonny Vicente on 05-02-2024 Hemoglobin (Bld) [Mass/Vol] 11.2 g/dL Low 12.0-15.0 [facility] Immature granulocytes/100 WB C Auto (Bld)Ordered By: Jonny Vicente on 05-02-2024 Immature granulocytes/100 WBC (Bld) 0.300 % 0.0-0.9 [facility] Comment on above: IG% - Immature Granu locytes (promyelocytes, myelocytes and metamyelocytes) > 1% indicates that a LEFT SHIFT is Present. Lymphocytes Auto (Unsp spec) [#/Vol]Ordered By: Jonny Vicente on 05-02-2024 Lymphocytes (Bld) [#/Vol] 1.38 10*3/uL 0.83-4.51 [facility] Lymphocytes/100 WBC Auto (Un sp spec)Ordered By: Jonny Vicente on 05-02-2024 Lymphocytes/100 WBC (Bld) 19.8 % 19-41 [facility] MCV (mean corpuscular volume ) determinationOrdered By: Jonny Vicente on 05-02-2024 MCV (RBC) [Entitic vol] 85.9 fL 81-99 [facility] Mean corpuscular hemoglobin (MCH) determinationOrdered By: Jonny Vicente on 05-02-2024 MCH (RBC) [Entitic mass] 27.7 pg 27.0-32.0 [facility] Mean corpuscular hemoglobin concentration (MCHC) determinationOrdered By: Jonny Vicente on 05-02-2024 MCHC (RBC) [Mass/Vol] 32.2 g/dL 32-36 [facility] Mean platelet volume determi nationOrdered By: Jonny Vicente on 05-02-2024 Platelet mean volume (Bld) [Entitic vol] 10.8 fL 6.2-12.0 [facility] Monocyte percentageOrdered B y: Jonny Vicente on 05-02-2024 Monocytes/100 WBC (Bld) 11.9 % High 0-10 [facility] Neutrophil percentageOrdered By: Jonny Vicente on 05-02-2024 Neutrophils/100 WBC (Bld) 63.7 % 47-70 [facility] Nucleated red blood cell per centageOrdered By: Jonny Vicente on 05-02-2024 Nucleated RBC/100 WBC (Bld) [Ratio] 0 % 0-5 [facility] Platelet countOrdered By: Alyson Vicente on 12-31-2024 Platelets (Bld) [#/Vol] 241 10*3/uL 150-450 [facility] Potassium measurementOrdered By: Jonny Vicente on 05-02-2024 Potassium [Moles/Vol] 3.3 mmol/L Low 3.5-5.1 [facility] RBC Auto (Bld) [#/Vol]Ordere d By: Jonny Vicente on 05-02-2024 RBC (Bld) [#/Vol] 4.05 10*6/uL Low 4.2-5.4 [place] Serum anion gap measurementO rdered By: Jonny Vicente on 05-02-2024 Anion gap [Moles/Vol] 7 mmol/L 5-15 [facility] Serum or plasma calcium julee urement (mass/volume)Ordered By: Jonny Vicente on 05-02-2024 Calcium [Mass/Vol] 8.7 mg/dL 8.5-10.1 [facility] Serum or plasma creatinine m easurement (mass/volume)Ordered By: Jonny Vicente on 05-02-2024 Creatinine [Mass/Vol] 0.74 mg/dL 0.55-1.02 [facility] Comment on above: The validity of the calculated GFR & GFRAA in patients over 70 years has not been determined. Clinical correlation is essential. Serum or plasma urea nitroge n measurement (mass/volume)Ordered By: Jonny Vicente on 05-02-2024 Urea nitrogen [Mass/Vol] 22 mg/dL High 7-18 [facility] Sodium levelOrdered By: Timmy Vicente on 05-02-2024 Sodium [Moles/Vol] 139 mmol/L 136-145 [facility] Urine Cultureon 05-02-2024 [facility] Comments: Use ED UA Mixed Gram Positive Organisms [place] Count 25,000-50,000 [facility] Mixed contaminants. Submit a new specimen if indicated. Normal [facility] Comment on above: Performed By: #### L 500.2500 #### [facility] [place], [address] White blood cell (WBC) count Ordered By: Jonny Vicente on 05-02-2024 WBC (Bld) [#/Vol] 7.0 10*3/uL 4.4-11.0 [facility] Albumin to globulin ratioOrd ered By: Susan Duran on 05-01-2024 Albumin/Globulin [Mass ratio] 0.8 {ratio} Low 0.9-2.4 [facility] Comment on above: Performed By: #### L 500.4050, L100.0100, L500.4100 #### [facility] [address] [place], [address] Bilirubin, totalOrdered By: Susan Duran on 05-01-2024 Bilirubin [Mass/Vol] 1.60 mg/dL High 0.20-1.00 [facility] Comment on above: For patients on eltr ombopag therapy, use of Dimension Foster TBIL is not recommended. Result Comment: For patients on eltrombopag therapy, use of Dimension Foster TBIL is not recommended. Performed By: #### L 500.4050, L100.0100, L500.4100 #### [facility] [address] [place], [address] CBC W/Diff, Automatedon - Absolute Lymph 1.39 X10 3/uL Normal 0.83-4.51 [facility] Comment on above: Performed By: #### L 500.4050, L100.0100, L500.4100 #### [facility] [address] [place], [address] Absolute Neut 4.5 X10 3/uL Normal 2.0-7.7 [facility] Comment on above: Performed By: #### L 500.4050, L100.0100, L500.4100 #### [facility] [address] [place], [address] Basophils/100 WBC (Bld) 0.8 % Normal 0-1 [facility] Comment on above: Performed By: #### L 500.4050, L100.0100, L500.4100 #### [facility] [address] [place], [address] Eosinophils/100 WBC (Bld) 2.5 % Normal 0-5 [facility] Comment on above: Performed By: #### L 500.4050, L100.0100, L500.4100 #### [facility] [address] [place], [address] Erythrocyte distribution width (RBC) [Ratio] 16.5 % High 11.6-14.6 [facility] Comment on above: Performed By: #### L 500.4050, L100.0100, L500.4100 #### [facility] [address] [place], [address] Hematocrit (Bld) [Volume fraction] 34.0 % Low 37-47 [facility] Comment on above: Performed By: #### L 500.4050, L100.0100, L500.4100 #### [facility] [address] [place], [address] Hemoglobin (Bld) [Mass/Vol] 11.0 g/dL Low 12.0-15.0 [facility] Comment on above: Performed By: #### L 500.4050, L100.0100, L500.4100 #### [facility] [address] [place], [address] IG% 0.100 Normal 0.0-0.9 [facility] Comment on above: Result Comment: IG% - Immature Granulocytes (promyelocytes, myelocytes and metamyelocytes) > 1% indicates that a LEFT SHIFT is Present. Performed By: #### L 500.4050, L100.0100, L500.4100 #### [facility] [address] [place], [address] Lymphocytes/100 WBC (Bld) 19.6 % Normal 19-41 [facility] Comment on above: Performed By: #### L 500.4050, L100.0100, L500.4100 #### [facility] [address] [place], [address] MCH (RBC) [Entitic mass] 27.5 pg Normal 27.0-32.0 [facility] Comment on above: Performed By: #### L 500.4050, L100.0100, L500.4100 #### [facility] [address] [place], [address] MCHC (RBC) [Mass/Vol] 32.4 g/dL Normal 32-36 [facility] Comment on above: Performed By: #### L 500.4050, L100.0100, L500.4100 #### [facility] [address] [place], [address] MCV (RBC) [Entitic vol] 85.0 fL Normal 81-99 [facility] Comment on above: Performed By: #### L 500.4050, L100.0100, L500.4100 #### [facility] [address] [place], [address] Monocytes/100 WBC (Bld) 13.4 % High 0-10 [facility] Comment on above: Performed By: #### L 500.4050, L100.0100, L500.4100 #### [facility] [address] [place], [address] Neutrophils/100 WBC (Bld) 63.6 % Normal 47-70 [facility] Comment on above: Performed By: #### L 500.4050, L100.0100, L500.4100 #### [facility] [address] [place], [address] Nucleated RBC (Bld) [#/Vol] 0 10*3/uL Normal 0-5 [facility] Comment on above: Performed By: #### L 500.4050, L100.0100, L500.4100 #### [facility] [address] [place], [address] Platelet mean volume (Bld) [Entitic vol] 11.2 fL Normal 6.2-12.0 [facility] Comment on above: Performed By: #### L 500.4050, L100.0100, L500.4100 #### [facility] [address] [place], [address] Platelets (Bld) [#/Vol] 193 10*3/uL Normal 150-450 [facility] Comment on above: Performed By: #### L 500.4050, L100.0100, L500.4100 #### [facility] [address] [place], [address] RBC (Bld) [#/Vol] 4.00 10*6/uL Low 4.2-5.4 [place] Comment on above: Performed By: #### L 500.4050, L100.0100, L500.4100 #### [facility] [address] [place], [address] RDW SD 51.2 fl High 35.1-43.9 [facility] Comment on above: Performed By: #### L 500.4050, L100.0100, L500.4100 #### [facility] [address] [place], [address] WBC (Bld) [#/Vol] 7.1 10*3/uL Normal 4.4-11.0 [facility] Comment on above: Performed By: #### L 500.4050, L100.0100, L500.4100 #### [facility] [address] [place], [address] Priscila 05-01-2024 CARMELINAN Telephone ([facility]) MICHAEL MEIER ([id number]) 1940 F Date Time Provider Department 05/01/24 MICHAEL PUGA During your visit today, we recorded the following information about you: Constance Ervin LPN 05/01/2024 2:21 PM Signed Larissa with [facility] calls to report pt is currently in the hospital with heart failure exacerbation. Pt will most likely be discharged 05/03/24. Pt has HH orders for PT, OT, and Retirement. Larissa is requesting VO that pcp will follow pt while in HH. Call Larissa with VO from pcp. CAROLINE Lennon Bernadette, PA-C 05/01/2024 4:03 PM Signed Verbal order okay for PCP to follow for HH. SERGE Griffin Susan LPN 05/01/2024 4:41 PM Signed [facility] informed message left on VM. Allergies As of Date: 05/01/2024 Noted Allergy Reaction CIPROFLOXACIN 09/05/2018 2 - Rash DEMEROL (MEPERIDINE (PF)) 02/06/2011 11 - Vomiting OPIOIDS - MORPHINE ANALOGUES 03/17/2001 5 - Intolerance Comments: nausea, dizzy, sees things OPIOIDS-MEPERIDINE AND RELATED 02/17/2001 Comments: nausea/vomiting PENICILLIN G 02/17/2001 Comments: imani PRAVACHOL (PRAVASTATIN SODIUM) 03/09/2016 14 - Other: See Comments Comments: Leg cramps SULFA (SULFONAMIDE ANTIBIOTICS) 03/17/2001 Comments: imani VICODIN (HYDROCODONE-ACETAMINOPHE* 5 - Intolerance Comments: dizzy,nausea,vomiting,headac he ZITHROMAX (AZITHROMYCIN) 05/20/2017 5 - Intolerance Date Reviewed: 04/10/2024 Reviewed by: Sharon Jarrett APRN.HATCHERY MAN - Fully Assessed Reason for Visit: verbal orders [Other] Prescriptions as of 05/01/2024 - sucralfate (CARAFATE) 100 mg/mL suspension Take 10 mL by mouth four times daily. - Omeprazole Magnesium (PRILOSEC OTC) 20 mg tablet Take 1 tablet by mouth once daily. - cyanocobalamin (VITAMIN B-12) 1,000 mcg tab Take 1,000 mcg by mouth once daily. - spironolactone (ALDACTONE) 25 mg tablet Take 25 mg by mouth once daily. - hydrALAZINE (APRESOLINE) 25 mg tablet Take 25 mg by mouth once daily. - albuterol HFA (PROVENTIL HFA, VENTOLIN HFA) 90 mcg/actuation inhaler Inhale 2 Puffs as instructed every 4 hours as needed. - LORazepam (ATIVAN) 0.5 mg Take 1 tablet by mouth two times a day as needed (anxiety attack). - meloxicam (MOBIC) 15 mg tablet Take 1 tablet by mouth once daily. Take with food. - fluticasone (FLOVENT) 110 mcg/actuation inhaler Inhale 1 Puff as instructed two times a day. Shake well before use. Rinse mouth after use. - levothyroxine (SYNTHROID) 50 mcg tablet Take 1 tablet by mouth daily before breakfast. In the morning, Take on empty stomach at least 30 min before eating. For thyroid. - PARoxetine (PAXIL) 20 mg tablet Take 1 tablet by mouth once daily. In the evening - rosuvastatin (CRESTOR) 10 mg tablet Take 1 tablet by mouth daily at bedtime. - guaiFENesin (MUCINEX) 600 mg 12 hr tablet Take 1 tablet by mouth two times a day as needed for cold/allergy symptoms. - RESTASIS 0.05 % ophthalmic emulsion - Azelastine HCl (OPTIVAR) 0.05 % ophthalmic solution - aspirin, enteric coated (ASPIRIN, ENTERIC COATED) 81 mg EC tablet Take 81 mg by mouth once daily. - PACERONE 200 mg tablet Take 200 mg by mouth once daily. - ubidecarenone (COQ-10 ORAL) Take by mouth. - diltiazem CD (CARDIZEM CD) 240 mg 24 hr capsule Take 1 capsule by mouth once daily. - losartan (COZAAR) 100 mg tablet Take 1 tablet by mouth once daily. Problem List As Of Date 05/01/2024 Noted Resolved MALIG MELANOMA TRUNK [C43.59] 02/17/2001 Melanoma of skin, site unspecified [C43.9] 01/09/2012 ALLERGIC RHINITIS NOS [J30.9] Other and unspecified hyperlipidemia [E78.5] 03/11/2015 Primary hypertension [I10] Unspecified gastritis and gastroduodenitis [535* 03/11/2015 Actinic keratosis [L57.0] 01/20/2007 03/11/2015 Other chronic dermatitis due to solar radiation*01/20/2007 01/09/2012 Scar condition and fibrosis of skin [L90.5] 01/20/2007 03/11/2015 SOLAR LENGINES///DYSCHROMIA OTHER [L81.9] 01/20/2007 01/09/2012 Other seborrheic keratosis [L82.1] 01/20/2007 01/09/2012 NEVUS///BENIGN COLIN SKIN TRUNK [D23.5] 01/20/2007 01/09/2012 NEVI///BENIGN COLIN SKIN FACE NEC [D23.30] 01/20/2007 01/09/2012 SEBACEOUS HYPERPLASIA///SEBACEOUS GLAND DIS NOS*01/20/2007 01/09/2012 DYSMETABOLIC SYNDROME X [E88.810] 07/12/2007 A-fib (HCC) [I48.91] 10/08/2010 03/11/2015 Personal history of malignant melanoma of skin *02/08/2011 Actinic skin damage [L57.8] 01/09/2012 03/11/2015 Solar Lentigines [L81.4] 01/09/2012 03/11/2015 Surgical Scars [L90.5] 01/09/2012 03/11/2015 Irriated//Inflamed Seborrheic Keratoses [L82.0] 12/01/2013 03/11/2015 Other Seborrheic Keratoses [L82.1] 12/01/2013 03/11/2015 Xerosis cutis [L85.3] 12/01/2013 03/11/2015 Cutaneous skin tags [L91.8] 12/01/2013 03/11/2015 Hyperlipidemia [E78.5] 03/11/2015 08/16/2015 Paroxysmal atrial fibrilla (more content not included)... Normal [facility] Prof shahida 05-01-2024 ALK P 80 U/L Normal 45-117 [facility] Comment on above: Performed By: #### L 500.4050, L100.0100, L500.4100 #### [facility] [address] [place], [address] BUN/CRE 20.0 RATIO Normal 10-20 [facility] Comment on above: Performed By: #### L 500.4050, L100.0100, L500.4100 #### [facility] [address] [place], [address] CA,Total 8.8 mg/dL Normal 8.5-10.1 [facility] Comment on above: Performed By: #### L 500.4050, L100.0100, L500.4100 #### [facility] [address] [place], [address] Chloride [Moles/Vol] 100 mmol/L Normal 98-107 [facility] Comment on above: Performed By: #### L 500.4050, L100.0100, L500.4100 #### [facility] [address] [place], [address] CO2 [Moles/Vol] 35.0 mmol/L High 21.0-32.0 [facility] Comment on above: Performed By: #### L 500.4050, L100.0100, L500.4100 #### [facility] [address] [place], [address] Creatinine [Mass/Vol] 0.85 mg/dL Normal 0.55-1.02 [facility] Comment on above: Result Comment: The validity of the calculated GFR GFRAA in patients over 70 years has not been determined. Clinical correlation is essential. Performed By: #### L 500.4050, L100.0100, L500.4100 #### [facility] [address] [place], [address] ECRCL 59.98 ml/min Normal [facility] Comment on above: Performed By: #### L 500.4050, L100.0100, L500.4100 #### [facility] [address] [place], [address] EST GFR - AA 82 mL/min Normal >60 [facility] Comment on above: Result Comment: Afri can Japanese GFR Calc Performed By: #### L 500.4050, L100.0100, L500.4100 #### [facility] [address] [place], [address] GAP 3 Low 5-15 [facility] Comment on above: Performed By: #### L 500.4050, L100.0100, L500.4100 #### [facility] [address] [place], [address] GFR/1.73 sq M.predicted among non-blacks MDRD (S/P/Bld) [Vol rate/Area] 68 mL/min/{1.73_m2} Normal >60 [facility] Comment on above: Result Comment: Non- GFR Calc Performed By: #### L 500.4050, L100.0100, L500.4100 #### [facility] [address] [place], [address] Glucose [Mass/Vol] 117 mg/dL High 74-106 [facility] Comment on above: Result Comment: Fast ing Glucose result from 100 to 125 mg/dL suggests IMPAIRED HOMEOSTASIS per A.D.A. criteria. Performed By: #### L 500.4050, L100.0100, L500.4100 #### [facility] [address] [place], [address] Potassium [Moles/Vol] 3.0 mmol/L Low 3.5-5.1 [facility] Comment on above: Performed By: #### L 500.4050, L100.0100, L500.4100 #### [facility] [address] [place], [address] Sodium [Moles/Vol] 138 mmol/L Normal 136-145 [facility] Comment on above: Performed By: #### L 500.4050, L100.0100, L500.4100 #### [facility] [address] [place], [address] T PROT 6.3 g/dL Low 6.4-8.2 [facility] Comment on above: Performed By: #### L 500.4050, L100.0100, L500.4100 #### [facility] [address] [place], [address] Urea nitrogen [Mass/Vol] 17 mg/dL Normal 7-18 [facility] Comment on above: Performed By: #### L 500.4050, L100.0100, L500.4100 #### [facility] [address] [place], [address] Comprehensive Metabolic Prof ilOrdered By: Susan Duran on 05-01-2024 AST [Catalytic activity/Vol] 18 U/L Normal 15-37 [facility] Comment on above: Performed By: #### L 500.4050, L100.0100, L500.4100 #### [facility] [address] [place], [address] High density lipoprotein (HD L) measurementOrdered By: Susan Duran on 05-01-2024 Cholesterol in HDL [Mass/Vol] 54 mg/dL Normal [facility] Comment on above: The drugs N-Acetylcy steine and Metamizole may falsely depress this assay. Reference Range HDL <40 mg/dL Low HDL Cholesterol HDL >or= 60 mg/dL High HDL Cholesterol Result Comment: The drugs N-Acetylcysteine and Metamizole may falsely depress this assay. Reference Range HDL <40 mg/dL Low HDL Cholesterol HDL >or= 60 mg/dL High HDL Cholesterol Performed By: #### L 500.4050, L100.0100, L500.4100 #### [facility] [address] [place], [address] Lipid Profileon 05-01-2024 Cholesterol in VLDL [Mass/Vol] 20 mg/dL Normal 5-40 [facility] Comment on above: Performed By: #### L 500.4050, L100.0100, L500.4100 #### [facility] [address] [place], [address] Low density lipoprotein (LDL ) cholesterol measurementOrdered By: Susan Roger on 05-01-2024 Cholesterol in LDL [Mass/Vol] 66 mg/dL Normal 0-130 [facility] Comment on above: Performed By: #### L 500.4050, L100.0100, L500.4100 #### [facility] [address] [place], [address] Serum globulin measurementOr dered By: Susan Roger on 05-01-2024 Globulin (S) [Mass/Vol] 3.5 g/dL Normal 2.2-4.2 [facility] Comment on above: Performed By: #### L 500.4050, L100.0100, L500.4100 #### [facility] [address] [place], [address] Serum or plasma alanine sprague otransferase (ALT) measurementOrdered By: Susan Duran on 05-01-2024 ALT [Catalytic activity/Vol] 24 U/L Normal 13-56 [facility] Comment on above: Performed By: #### L 500.4050, L100.0100, L500.4100 #### [facility] [address] [place], [address] Serum or plasma albumin julee urement (mass/volume)Ordered By: Susan Duran on 05-01-2024 Albumin [Mass/Vol] 2.8 g/dL Low 3.2-5.0 [facility] Comment on above: Performed By: #### L 500.4050, L100.0100, L500.4100 #### [facility] [address] [place], [place], [address] Serum or plasma alkaline rachel sphatase measurementOrdered By: Susan Duran on 05-01-2024 ALP [Catalytic activity/Vol] 80 U/L 45-117 [facility] Serum or plasma cholesterol measurement (mass/volume)Ordered By: Susan Duran on 05-01-2024 Cholesterol [Mass/Vol] 140 mg/dL Normal 200 [facility] Comment on above: <200 mg/dL Desirable 200-240 mg/dL Borderline >240 mg/dL High Risk Result Comment: <200 mg/dL Desirable 200-240 mg/dL Borderline >240 mg/dL High Risk Performed By: #### L 500.4050, L100.0100, L500.4100 #### [facility] [address] [place], [place], [address] Total proteinOrdered By: Ashu Duran on 05-01-2024 Protein [Mass/Vol] 6.3 g/dL Low 6.4-8.2 [facility] Triglycerides measurementOrd ered By: Susan Duran on 05-01-2024 Triglyceride [Mass/Vol] 102 mg/dL Normal [facility] Comment on above: The drugs N-Acetylcy steine and Metamizole may falsely depress this assay.Serum Triglycerides Reference Interval Normal <150 mg/dL Borderline high 150 - 199 mg/dL High 200 - 499 mg/dL Very High > or = 500 mg/dL Result Comment: The drugs N-Acetylcysteine and Metamizole may falsely depress this assay. Serum Triglycerides Reference Interval Normal <150 mg/dL Borderline high 150 - 199 mg/dL High 200 - 499 mg/dL Very High > or = 500 mg/dL Performed By: #### L 500.4050, L100.0100, L500.4100 #### [facility] [address] [place], [address] Very low density lipoprotein (VLDL) cholesterol measurementOrdered By: Susan Duran on 05-01-2024 VLDL Cholesterol 20 mg/dL 5-40 [facility] 12 Lead EKGon 04-30-2024 12 Lead EKG [facility] [address] [place] [address] 12 Lead EKG 04/30/24 1519 MR#: [id number] Acct: [id number] Name: MICHAEL MEIER Rep #: [id number] : 1940 84 From: Gallo Hickey MD Attending Dr: Dr. Jonny Vicente MD Status : ADM IN Ordering Dr: Susan Duran MD Date: 04/30/24 Location: ICU Sex: F C Admitted: 04/30/24 Test Reason : CHF Blood Pressure : */* mmHG Vent. Rate : 61 BPM Atrial Rate : 61 BPM P-R Int : 168 ms QRS Dur : 100 ms QT Int : 528 ms P-R-T Axes : * 15 -13 degrees QTcB Int : 531 ms Atrial-paced rhythm T wave abnormality, consider anterior ischemia Abnormal ECG Confirmed by EDELMIRA SZYMANSKI, GALLO ([id number]), art editor KATIA MEDEIROS ([id number]) on 05/01/2024 11:10:29 AM Referred By: Confirmed By: GALLO HICKEY MD 05/01/24 1110 Date Gallo Hickey MD CC: Dr. Susan Duran MD; Dr. Michael Puga DO; Dr. Jonny Vicente MD Signed Normal [facility] Amorphous sediment detection in urine sediment by light microscopyOrdered By: Aravind Recio on 04-30-2024 Amorphous sediment LM Ql (Urine sed) 1+ [facility] BNP (brain natriuretic pepti de measurement)Ordered By: Aravind Recio on 04-30-2024 Natriuretic peptide B (Bld) [Mass/Vol] 266.9 pg/mL High 0-100 [facility] BNP,B-Type NATRIURETIC PEPTI Kenyatta 04-30-2024 Natriuretic peptide B (Bld) [Mass/Vol] 266.9 pg/mL High 0-100 [facility] Comment on above: Performed By: #### L 100.0100, L500.2500 #### [facility] [address] [place], [address] Basic Metabolic Profile (BMP )on 04-30-2024 BUN/CRE 19.1 RATIO Normal 10-20 [facility] Comment on above: Performed By: #### L 100.0100, L500.2500 #### [facility] [address] [place], [address] CA,Total 9.0 mg/dL Normal 8.5-10.1 [facility] Comment on above: Performed By: #### L 100.0100, L500.2500 #### [facility] [address] [place], [address] Chloride [Moles/Vol] 99 mmol/L Normal 98-107 [facility] Comment on above: Performed By: #### L 100.0100, L500.2500 #### [facility] [address] [place], [address] CO2 [Moles/Vol] 33.0 mmol/L High 21.0-32.0 [facility] Comment on above: Performed By: #### L 100.0100, L500.2500 #### [facility] [address] [place], [address] Creatinine [Mass/Vol] 0.68 mg/dL Normal 0.55-1.02 [facility] Comment on above: Result Comment: The validity of the calculated GFR GFRAA in patients over 70 years has not been determined. Clinical correlation is essential. Performed By: #### L 100.0100, L500.2500 #### [facility] [address] [place], [address] ECRCL 65.47 ml/min Normal [facility] Comment on above: Performed By: #### L 100.0100, L500.2500 #### [facility] [address] [place], [address] EST GFR - AA 106 mL/min Normal >60 [facility] Comment on above: Result Comment: Afri can Japanese GFR Calc Performed By: #### L 100.0100, L500.2500 #### [facility] [address] [place], [address] GAP 7 Normal 5-15 [facility] Comment on above: Performed By: #### L 100.0100, L500.2500 #### [facility] [address] [place], [address] GFR/1.73 sq M.predicted among non-blacks MDRD (S/P/Bld) [Vol rate/Area] 88 mL/min/{1.73_m2} Normal >60 [facility] Comment on above: Result Comment: Non- GFR Calc Performed By: #### L 100.0100, L500.2500 #### [facility] [address] [place], [address] Glucose [Mass/Vol] 127 mg/dL High 74-106 [facility] Comment on above: Result Comment: Fast ing Glucose result greater than or equal to 126 mg/dL suggests DIABETES MELLITUS per A.D.A. criteria. Performed By: #### L 100.0100, L500.2500 #### [facility] [address] [place], [address] Potassium [Moles/Vol] 2.8 mmol/L Low 3.5-5.1 [facility] Comment on above: Performed By: #### L 100.0100, L500.2500 #### [facility] [address] [place], [address] Sodium [Moles/Vol] 139 mmol/L Normal 136-145 [facility] Comment on above: Performed By: #### L 100.0100, L500.2500 #### [facility] [address] [place], [address] Urea nitrogen [Mass/Vol] 13 mg/dL Normal 7-18 [facility] Comment on above: Performed By: #### L 100.0100, L500.2500 #### [facility] [address] [place], [address] Bilirubin Test strip Ql (U)O rdered By: Aravind Recio on 04-30-2024 Bilirubin Ql (U) Negative Negative [facility] Bilirubin directOrdered By: Aravind Recio on 04-30-2024 Bilirubin.direct [Mass/Vol] 0.52 mg/dL High 0.00-0.30 [facility] CBC W/Diff, Automatedon - Absolute Lymph 1.24 X10 3/uL Normal 0.83-4.51 [facility] Comment on above: Performed By: #### L 100.0100, L500.2500 #### [facility] [address] [place], [address] Absolute Neut 10.4 X10 3/uL High 2.0-7.7 [facility] Comment on above: Performed By: #### L 100.0100, L500.2500 #### [facility] [address] [place], [address] Basophils/100 WBC (Bld) 0.4 % Normal 0-1 [facility] Comment on above: Performed By: #### L 100.0100, L500.2500 #### [facility] [address] [place], [address] Eosinophils/100 WBC (Bld) 1.3 % Normal 0-5 [facility] Comment on above: Performed By: #### L 100.0100, L500.2500 #### [facility] [address] [place], [address] Erythrocyte distribution width (RBC) [Ratio] 16.7 % High 11.6-14.6 [facility] Comment on above: Performed By: #### L 100.0100, L500.2500 #### [facility] [address] [place], [address] Hematocrit (Bld) [Volume fraction] 36.9 % Low 37-47 [facility] Comment on above: Performed By: #### L 100.0100, L500.2500 #### [facility] [address] [place], [address] Hemoglobin (Bld) [Mass/Vol] 11.9 g/dL Low 12.0-15.0 [facility] Comment on above: Performed By: #### L 100.0100, L500.2500 #### [facility] [address] [place], [address] IG% 0.400 Normal 0.0-0.9 [facility] Comment on above: Result Comment: IG% - Immature Granulocytes (promyelocytes, myelocytes and metamyelocytes) > 1% indicates that a LEFT SHIFT is Present. Performed By: #### L 100.0100, L500.2500 #### [facility] [address] [place], [address] Lymphocytes/100 WBC (Bld) 9.3 % Low 19-41 [facility] Comment on above: Performed By: #### L 100.0100, L500.2500 #### [facility] [address] [place], [address] MCH (RBC) [Entitic mass] 27.7 pg Normal 27.0-32.0 [facility] Comment on above: Performed By: #### L 100.0100, L500.2500 #### [facility] [address] [place], [address] MCHC (RBC) [Mass/Vol] 32.2 g/dL Normal 32-36 [facility] Comment on above: Performed By: #### L 100.0100, L500.2500 #### [facility] [address] [place], [address] MCV (RBC) [Entitic vol] 85.8 fL Normal 81-99 [facility] Comment on above: Performed By: #### L 100.0100, L500.2500 #### [facility] [address] [place], [address] Monocytes/100 WBC (Bld) 11.0 % High 0-10 [facility] Comment on above: Performed By: #### L 100.0100, L500.2500 #### [facility] [address] [place], [address] Neutrophils/100 WBC (Bld) 77.6 % High 47-70 [facility] Comment on above: Performed By: #### L 100.0100, L500.2500 #### [facility] [address] [place], [address] Nucleated RBC (Bld) [#/Vol] 0 10*3/uL Normal 0-5 [facility] Comment on above: Performed By: #### L 100.0100, L500.2500 #### [facility] [address] [place], [address] Platelet mean volume (Bld) [Entitic vol] 10.8 fL Normal 6.2-12.0 [facility] Comment on above: Performed By: #### L 100.0100, L500.2500 #### [facility] [address] [place], [address] Platelets (Bld) [#/Vol] 236 10*3/uL Normal 150-450 [facility] Comment on above: Performed By: #### L 100.0100, L500.2500 #### [facility] [address] [place], [address] RBC (Bld) [#/Vol] 4.30 10*6/uL Normal 4.2-5.4 [place] Comment on above: Performed By: #### L 100.0100, L500.2500 #### [facility] [address] [place], [address] RDW SD 52.8 fl High 35.1-43.9 [facility] Comment on above: Performed By: #### L 100.0100, L500.2500 #### [facility] [address] [place], [address] WBC (Bld) [#/Vol] 13.4 10*3/uL High 4.4-11.0 [place] Comment on above: Performed By: #### L 100.0100, L500.2500 #### [facility] [address] [place], [address] CTA Chest W/WO Contraston CTA Chest W/WO Contrast [facility] Imaging Services [address] [place] [address] CTA Chest W/WO Contrast MR#: [id number] Acct: [id number] Name: MICHAEL MEIER Rep #: [id number] : 1940 F 84 From: Wil jerome DO PCP: Dr. Michael Puga, DO Status: [facility] ER Study: CTA Chest W/WO Contrast Date of Exam: 04/30/24 Exam# [id number] Ordering Dr: Aravind Recio DO :[id number] EXAM: CT ANGIOGRAPHY CHEST WITHOUT AND WITH INTRAVENOUS CONTRAST CLINICAL INDICATION: hypoxia TECHNIQUE: Helically acquired angiography images were obtained of the chest without and with intravenous contrast. This CT exam was performed using one or more of the following dose reduction techniques: automated exposure control, adjustment of the mA and/or kV according to patient size, and/or use of iterative reconstruction technique. MIP reconstructed images were created and reviewed. CONTRAST: IV 100mL [id number] COMPARISON: Chest radiograph on the same date. FINDINGS: PULMONARY ARTERIES: No significant abnormality. Normal in caliber. No evidence of pulmonary embolism. AORTA: Atherosclerosis of the aorta and its branch vessels. Normal in caliber. No evidence of dissection. GREAT VESSELS OF AORTIC ARCH: No significant abnormality. Normal in caliber. No evidence of dissection. LUNGS AND PLEURAL SPACES: Diffuse interstitial thickening and bilateral small right larger than left pleural effusions. No dense consolidative airspace disease. Left apical scarring. Right upper lobe granuloma. No mass. HEART: No significant abnormality. Heart size is normal. No pericardial effusion. No significant coronary artery calcifications. MEDIASTINUM: Mediastinal and right hilar granulomas. No mediastinal or hilar adenopathy. Esophagus is unremarkable. No hiatal hernia. THYROID: No significant abnormality. No thyroid lesions. BONES/JOINTS: Osseous degenerative changes. No suspicious lytic or blastic abnormality. TUBES, LINES AND DEVICES: Left-sided cardiac device. CT/CTA Chest W/WO Contrast IMPRESSION: 1. No evidence of pulmonary artery embolus. 2. Findings likely indicative of edema. No definite pneumonia. Pleural effusions. Electronically Signed: Wil Coker DO at 8:52 EST , CC: Dr. Michael Puga DO; Aravind Recio DO [employer] Middleware Developer: Signed Normal [facility] Chest PA and Lateralon 04-30 Chest PA and Lateral [facility] Imaging Services [address] [place] [id number] Chest PA and Lateral MR#: [id number] Acct: [id number] Name: MICHAEL MEIER Rep #: [id number] : 1940 F 84 From: Kelsea Souza PCP: Dr. Michael Puga DO Status: REG ER Study: Chest PA and Lateral Date of Exam: 04/30/24 Exam# [id number] Ordering Dr: Aravind Recio DO :[id number] INDICATION: cough EXAMINATION/TECHNIQUE: X-RAY - XR Chest 2 Views COMPARISON: Prior study dated: 09/29/2023 FINDINGS: LINES/DEVICES: Pacemaker with leads unchanged position. LUNGS: No consolidation. Small bilateral pleural effusions seen on the lateral view only. No pneumothorax. MEDIASTINUM: Aorta is atherosclerotic and tortuous. CARDIAC SILHOUETTE: Not enlarged. BONES AND SOFT TISSUES: No acute abnormalities. Degenerative changes in the dorsal spine. RAD/Chest PA and Lateral IMPRESSION: Small bilateral pleural effusions or pleural thickening. No infiltrates. Electronically Signed: Kelsea Jackman MD at 8:12 EST , CC: Dr. Mcihael Puga DO; Aravind Recio DO [employer] Middleware Developer: Signed Normal [facility] D-Dimer Quantitative (DVT/PE )on 04-30-2024 D-DIMER QUANT 0.83 FEU/ug/m Invalid Interpretation Code 0.27-0.49 [facility] Comment on above: Result Comment: D-Di rand ELEVATED (>0.49): Additional studies and clinical assessments are indicated to conclude diagnosis of: Deep Vein Thrombosis (DVT) or Pulmonary Embolism (PE) CRITICAL VALUE CALLED TO SUKI GALVAN 04/30/24 0731 Yessenia Kern. RESULTS READ BACK BY SAME. Performed By: #### L 100.0100, L500.2500 #### [facility] [address] [place], [address] D-dimer measurement for deep venous thrombosisOrdered By: Aravind Recio on 04-30-2024 D-Dimer Quantitative (PE/DVT) 0.83 FEU/ug/m High 0.27-0.49 [facility] Comment on above: D-Dimer ELEVATED (>0 .49): Additional studies and clinicalassessments are indicated to conclude diagnosis of:Deep Vein Thrombosis (DVT) or Pulmonary Embolism (PE)CRITICAL VALUE CALLED TO SUKI GALVAN04/30/24 0731 Yessenia Kern.RESULTS READ BACK BY SAME. Direct serum free thyroxine (FT4) measurementOrdered By: Susan Duran on 04-30-2024 Free T4 [Mass/Vol] 1.90 ng/dL High 0.76-1.46 [facility] Emergency Department Summary on 04-30-2024 Emergency Department Summary [facility] Medical Records Department [address] [place] [address] Emergency Department Summary 04/30/24 MR#: [id number] Acct: [id number] Name: MICHAEL MEIER Rep #: [id number] : 1940 84 From: Aravind Recio DO PCP: Dr. Michael Puga DO Status:REG ER Location: ED ADDENDUM by Aravind Recio DO on 04/30/24 at [address] report resulted before the end of my shift. It showed bilateral pleural effusions consistent with congestive heart failure but no PE or dissection or pneumonia. As the patient is already on diuretics at home but now having effusions and hypoxia and is still requiring supplemental oxygen to keep her sats greater than 90% she is not safe to return home. Medicine was contacted and they do agree to accept the patient for further care. As she is not in acute distress at rest she does not need BiPAP but diuretics with IV Lasix will be added at this time. 04/30/24 0918 Cosigner Signature (if applicable): cc: Dr. Michael Puga DO * Signed HPI History of Present Illness Chief Complaint: General Illness Informant: patient and EMS Narrative Narrative: Patient is an 84-year-old female with past medical history of hypertension hyperlipidemia sick sinus syndrome status post pacemaker. She states that in August of this year she had to be admitted to the hospital for double pneumonia. She states that she required oxygen for 3 weeks while she was treated for that. However after that resolved she no longer required supplemental oxygen. She states for the past 4 days she has had generalized fatigue and has felt increasing shortness of breath. She states there is no associated chest pain diaphoresis nausea or vomiting. She reports that she has a pulse ox at home and she was checking her values this morning because of her worsening symptoms and states she had a reading down to 83%. With her worsening symptoms and now a low pulse ox value she activated her life alert and EMS brought her in for evaluation [facility] Medical History Obesity TIA (transient ischemic attack) (12/2018) GI bleed (2017) Essential (primary) hypertension Gastritis (09/07/18) Osteoarthritis Anxiety Daytime somnolence Dysmetabolic syndrome X Allergic rhinitis Malignant melanoma of skin of trunk, except scrotum Hyperlipidemia FH: sudden cardiac (SCD) Colitis Depression Paroxysmal atrial fibrillation Sick sinus syndrome Carotid artery disease Home Medications ???Medication ???Instructions ???Recorded ???Last Taken ???Type lorazepam 0.5 mg tablet 0.5 mg PO BID PRN PRN Anxiety 05/13/16 Unknown History aspirin 81 mg tablet,delayed 81 mg PO QDAY heart health #90 tabs 12/27/18 Unknown Rx release (Adult Low Dose Aspirin) coenzyme Q10 100 mg capsule (Co 100 mg PO DAILY supplement 01/23/20 Unknown History Q-10) rosuvastatin 10 mg tablet 10 mg PO DAILY cholesterol 01/23/20 Unknown History cholecalciferol (vitamin D3) 50 50 mcg PO DAILY vitamin 06/02/21 Unknown History mcg (2,000 unit) capsule sucralfate 100 mg/mL oral 10 ml PO TID PRN digestion 11/25/21 Unknown History suspension paroxetine HCl 20 mg tablet 20 mg PO QHS mental health 12/03/22 Unknown History diltiazem HCl 240 mg 240 mg PO QHS heart #90 caps 04/08/23 Unknown Rx capsule,extended release 24 hr losartan 100 mg tablet 100 mg PO DAILY blood pressure #90 08/10/23 Unknown Rx tabs cyclosporine 0.05 % eye drops in a 1 drp EACH EYE Q12H eye health 09/27/23 Unknown History dropperette (Restasis) albuterol sulfate 90 mcg/actuation 2 puff inhalation Q6H PRN 10/02/23 Unknown Rx aerosol inhaler (ProAir HFA) shortness of breath or wheezing #6.7 grams levothyroxine 50 mcg capsule 50 mcg PO QDAY 01/25/24 Unknown History spironolactone 25 mg tablet 25 mg PO DAILY #30 tabs 01/25/24 Unknown Rx amiodarone 200 mg tablet 200 mg PO DAILY heart #90 tabs 03/14/24 Unknown Rx azelastine 0.05 % eye drops 1 drp ophthalmic (eye) BID 04/30/24 Unknown History fluticasone propionate 110 1 inh inhalation Q12H 04/30/24 Unknown History mcg/actuation HFA aerosol inhaler guaifenesin 600 mg tablet, 600 mg PO BID PRN congestion 04/30/24 Unknown History extended release 12 hr (Mucus Relief ER) hydralazine 25 mg tablet 25 mg PO DAILY 04/30/24 Unknown History hydrochlorothiazide 12.5 mg capsule 12.5 mg PO DAILY 04/30/24 Unknown History meloxicam 15 mg tablet 15 mg PO DAILY 04/30/24 Unknown History vitamin B complex (Balanced B-50 1 tab PO DAILY 04/30/24 Unknown History tablet) Allergy/AdvReac Type Severity Reaction Status Date / Time ciprofloxacin (From Cipro) Allergy Rash Verified 04/30/24 06:15 Penicillins (PCN) Allergy Hives Verified 04/30/24 06:15 Sulfa (Sulfonamide Allergy Hives Verified 12 (more content not included)... Normal [facility] Epithelial cells.renal LM.HP F (Urine sed) [#/Area]Ordered By: Aravind Recio on 04-30-2024 Urine Renal Epithelial Cells 0-5 SEEN /hpf 0-5 [facility] Epithelial cells.squamous LM Ql (Urine sed)Ordered By: Aravind Recio on 04-30-2024 Epithelial cells.squamous LM.HPF (Urine sed) [#/Area] 5 /[HPF] 5-10 [facility] Glucose Ql (U)Ordered By: Yanira Recio on 04-30-2024 Urine Glucose (UA) Normal mg/dl Normal [facility] H AND P Exam - [place] 04-30-2024 H&P Exam - Hospitalist [facility] Medical Records Department [address] [place] [address] H P Exam - Hospitalist 04/30/24923 MR#: [id number] Acct: [id number] Name: MICHAEL MEIER Rep #: [id number] : 1940 84 From: Susan Duran MD PCP: Dr. Michael Puga, DO Status:ADM IN Location: ICU ICU06-1 HPI - General General Date of Admission: 04/30/24 Date of Service: 04/30/24 Chief Complaint: Dyspnea, worsening, hypoxia. HPI Narrative The patient is an 84 y/o F w/ PMHx: Nonobstructive CAD, HTN, HLD, PAF, Hx sick sinus syndrome s/p pacemaker placement, Anxiety and Depression, GERD w/ Hx GI bleed, Morbid obesity, Chronic anemia, JOSE on BiPAP nightly, CKD stage II based on GFR trending who presents to the [facility] ED on 04/30/24 with history of increasing fatigue, malaise and dyspnea worse with exertion with no associated chest discomfort or marked cough or fever ongoing for at least 4 days however on day of presentation she checked her pulse ox at home because of worsening dyspnea noted that it was 83% prompting life alert and EMS transition to the ED for further evaluation. Workup in the ED included T98, heart rate 66, BP 180/62, respiratory 20, 86% on room air initially with improvement to 98% on 4 L nasal cannula, in the ED when patient was attempting to use the restroom she desaturated down to 85% on 2 L nasal cannula but improved again when she rested, CBC with WBC 13.4, hemoglobin 0.9, MCV 85.8, platelet 236 with left shift, D-dimer 0.83 which is normal for age adjustment, pending coags upon evaluation, CMP with potassium 2.8, carbon oxide 33, BUN/creatinine 13/0.68, GFR 88, glucose 127, magnesium 2.0, T. bili 2.20, D bili 0.52 otherwise hepatic profile not marked appearing, lipase 12, TSH 4.07, BNP 266.9, urinalysis with leukocyte esterase 100 however no marked urine WBCs or RBCs with 2+ bacteria, urine culture pending but low suspicion, rapid SARS COVID/influenza/RSV PCR negative, chest x-ray with small bilateral pleural effusions or pleural thickening with no infiltrates, follow-up CTA chest with no evidence of pulmonary embolus, findings indicative of edema with no evidence of any definitive pneumonia, pleural effusions bilaterally, prehospital EKG/telemetry without acute findings but admission EKG requested. In the ED patient ministered potassium chloride 40 mill equivalents as well as 20 mill equivalents IV in addition to Lasix 40 mg IV x 1. PFSH Medical History Obesity TIA (transient ischemic attack) (12/2018) GI bleed (2018) Essential (primary) hypertension Osteoarthritis Anxiety Daytime somnolence Dysmetabolic syndrome X Allergic rhinitis Malignant melanoma of skin of trunk, except scrotum Hyperlipidemia FH: sudden cardiac (SCD) Depression Paroxysmal atrial fibrillation Sick sinus syndrome Carotid artery disease Home Medications ???Medication ???Instructions ???Recorded ???Last Taken ???Type lorazepam 0.5 mg tablet 0.5 mg PO BID PRN PRN Anxiety 05/13/16 Unknown History aspirin 81 mg tablet,delayed 81 mg PO QDAY heart health #90 tabs 12/27/18 Unknown Rx release (Adult Low Dose Aspirin) coenzyme Q10 100 mg capsule (Co 100 mg PO DAILY supplement 01/23/20 Unknown History Q-10) rosuvastatin 10 mg tablet 10 mg PO DAILY cholesterol 01/23/20 Unknown History cholecalciferol (vitamin D3) 50 50 mcg PO DAILY vitamin 06/02/21 Unknown History mcg (2,000 unit) capsule sucralfate 100 mg/mL oral 10 ml PO TID PRN digestion 11/25/21 Unknown History suspension paroxetine HCl 20 mg tablet 20 mg PO QHS mental health 12/03/22 Unknown History diltiazem HCl 240 mg 240 mg PO QHS heart #90 caps 04/08/23 Unknown Rx capsule,extended release 24 hr losartan 100 mg tablet 100 mg PO DAILY blood pressure #90 08/10/23 Unknown Rx tabs cyclosporine 0.05 % eye drops in a 1 drp EACH EYE Q12H eye health 09/27/23 Unknown History dropperette (Restasis) albuterol sulfate 90 mcg/actuation 2 puff inhalation Q6H PRN 10/02/23 Unknown Rx aerosol inhaler (ProAir HFA) shortness of breath or wheezing #6.7 grams levothyroxine 50 mcg capsule 50 mcg PO QDAY 01/25/24 Unknown History spironolactone 25 mg tablet 25 mg PO DAILY #30 tabs 01/25/24 Unknown Rx amiodarone 200 mg tablet 200 mg PO DAILY heart #90 tabs 03/14/24 Unknown Rx azelastine 0.05 % eye drops 1 drp ophthalmic (eye) BID 04/30/24 Unknown History fluticasone propionate 110 1 inh inhalation Q12H 04/30/24 Unknown History mcg/actuation HFA aerosol inhaler guaifenesin 600 mg tablet, 600 mg PO BID PRN congestion 04/30/24 Unknown History extended release 12 hr (Mucus Relief ER) hydralazine 25 mg tablet 25 mg PO DAILY 04/30/24 Unknown History hydrochlorothiazide 12.5 mg capsule 12.5 mg PO DAILY 04/30/24 Unknown History meloxicam 15 mg tablet 15 mg PO DAILY 04/03 (more content not included)... Normal [facility] Influenza virus A and B and SARS-CoV-2 (COVID-19) and Respiratory syncytial virus RNAOrdered By: Aravind Recio on 04-30-2024 SARS-CoV-2 (COVID-19) RNA DUSTIN+probe Ql (Unsp spec) [facility] International normalized rat io (INR) calculationOrdered By: Aravind Recio on 04-30-2024 INR Coag (Bld) [Relative time] 1.2 {INR} [facility] Ketones Test strip Ql (U)Ord ered By: Aravind Recio on 04-30-2024 Ketones Ql (U) Negative Negative [facility] L501.4020on 04-30-2024 TROPONIN-I HS 43 pg/mL Normal 3.0-54.0 [facility] Comment on above: Order Comment: Comme nts: SPECIMEN #3'TROP' Serial specimen #1, #2 or #3: 3 Result Comment: Tomasa garcia Note: New Test Units and Gender Specific Reference Ranges. For more information see Policy Stat Procedure Foster High Sensitivity Troponin (TNIH) and attachments. Performed By: #### L 100.0100, L500.2500 #### [facility] [address] [place], [address] TROPONIN-I HS 56 pg/mL High 3.0-54.0 [facility] Comment on above: Order Comment: Comme nts: SPECIMEN #2'TROP' Serial specimen #1, #2 or #3: 2 Result Comment: Plea se Note: New Test Units and Gender Specific Reference Ranges. For more information see Policy Stat Procedure Foster High Sensitivity Troponin (TNIH) and attachments. Performed By: #### L 100.0100, L500.2500 #### [facility] [address] [place], [address] TROPONIN-I HS 65 pg/mL High 3.0-54.0 [facility] Comment on above: Order Comment: 'TROP ' Serial specimen #1, #2 or #3: 1 Result Comment: Plea se Note: New Test Units and Gender Specific Reference Ranges. For more information see Policy Stat Procedure Foster High Sensitivity Troponin (TNIH) and attachments. Performed By: #### L 500.3400, L501.2450 #### [facility] [address] [place], [address] Lipaseon 04-30-2024 Lipase [Catalytic activity/Vol] 12 U/L Low 13-75 [facility] Comment on above: Result Comment: Plea se note: LIPASE revised reference range effective 22. New Lipase methodology. Expected to produce lower values than the previous assay method. NEW Reference Range: 13 - 75 U/L Performed By: #### L 500.3400, L501.2450 #### [facility] [address] [place], [place], [address] (964) Lipase measurementOrdered By : Aravind Recio on 04-30-2024 Lipase [Catalytic activity/Vol] 12 U/L Low 13-75 [facility] Comment on above: Please note:LIPASE r evised reference range effective 22. New Lipase methodology. Expected to produce lower values than the previous assay method. NEW Reference Range: 13 - 75 U/L Liver Profileon 04-30-2024 Albumin [Mass/Vol] 3.2 g/dL Normal 3.2-5.0 [facility] Comment on above: Performed By: #### L 500.3400, L501.2450 #### [facility] [address] [place], [address] ALK P 96 U/L Normal 45-117 [facility] Comment on above: Performed By: #### L 500.3400, L501.2450 #### [facility] [address] [place], [address] ALT [Catalytic activity/Vol] 27 U/L Normal 13-56 [facility] Comment on above: Performed By: #### L 500.3400, L5.2450 #### [facility] [address] [place], [address] AST [Catalytic activity/Vol] 19 U/L Normal 15-37 [facility] Comment on above: Performed By: #### L 500.3400, L501.2450 #### [facility] [address] [place], [address] Bilirubin [Mass/Vol] 2.20 mg/dL High 0.20-1.00 [facility] Comment on above: Result Comment: For patients on eltrombopag therapy, use of Dimension Foster TBIL is not recommended. Performed By: #### L 500.3400, L501.2450 #### [facility] [address] [place], [address] Bilirubin.direct [Mass/Vol] 0.52 mg/dL High 0.00-0.30 [facility] Comment on above: Performed By: #### L 500.3400, L501.2450 #### [facility] [address] [place], [address] Globulin (S) [Mass/Vol] 4.0 g/dL Normal 2.2-4.2 [facility] Comment on above: Performed By: #### L 500.3400, L501.2450 #### [facility] [address] [place], [address] T PROT 7.2 g/dL Normal 6.4-8.2 [facility] Comment on above: Performed By: #### L 500.3400, L501.2450 #### [facility] [address] [place], [address] M100.678on 04-30-2024 M100.678 Pending SARS-CoV-2 (COVID 19) Negative INFLUENZA A Negative INFLUENZA B Negative RSV PCR Negative Normal [facility] Comment on above: Performed By: #### L 100.0100, L500.2500 #### [facility] [address] [place], [address] Magnesiumon 04-30-2024 Magnesium [Mass/Vol] 2.0 mg/dL Normal 1.6-2.6 [facility] Comment on above: Performed By: #### L 100.0100, L500.2500 #### [facility] [address] [place], [address] Magnesium measurementOrdered By: Aravind Recio on 04-30-2024 Magnesium [Mass/Vol] 2.0 mg/dL 1.6-2.6 [facility] Microscopic analysis of urin e for red blood cells (RBC)Ordered By: Aravind Recio on 04-30-2024 Urine RBC 0-5 SEEN /hpf 0-5 [facility] Mucus LM Ql (Urine sed)Order ed By: Aravind Recio on 04-30-2024 Mucus Ql (Urine sed) 0 SEEN /hpf [facility] Nitrite Test strip Ql (U)Ord ered By: Aravind Recio on 04-30-2024 Nitrite Ql (U) Negative Negative [facility] Partial Thromboplast Timeon 04-30-2024 aPTT Coag (Bld) [Time] 32.3 s Normal 24.1-36.2 [facility] Comment on above: Performed By: #### L 500.3400, L501.2450 #### [facility] [address] [place], [address] Protein Test strip Ql (U)Ord ered By: Aravind Recio on 04-30-2024 Protein Ql (U) 15 mg/dl High Negative [facility] Prothrombin Time w/INRon INR Coag (PPP) [Relative time] 1.2 {INR} Normal [facility] Comment on above: Performed By: #### L 500.3400, L501.2450 #### [facility] [address] [place], [address] PT Coag (PPP) [Time] 14.9 s Normal 11.7-14.9 [facility] Comment on above: Performed By: #### L 500.3400, L501.2450 #### [facility] [address] [place], [address] Prothrombin timeOrdered By: Aravind Recio on 04-30-2024 PT Coag (PPP) [Time] 14.9 s 11.7-14.9 [facility] RESPIRATORY PANEL MOLECULARo n 04-30-2024 RP PANEL Normal Reference Ran ge = Not Detected Resp path DNA+RNA Pnl Resp DUSTIN+probe Nucleic acid amplification test method ADENOVIRUS Not Detected INFLUENZA A Not Detected INFLUENZA A (SUBTYPE H1) Not Detected INFLUENZA A (SUBTYPE H3) Not Detected INFLUENZA B Not Detected HUMAN METAPHNEUMO Not Detected PARAINFLUENZA 1 Not Detected PARAINFLUENZA 2 Not Detected PARAINFLUENZA 3 Not Detected PARAINFLUENZA 4 Not Detected RHINOVIRUS Not Detected RSV A Not Detected RSV B Not Detected Normal [facility] Comment on above: Performed By: #### L 500.3400, L501.2450 #### [facility] [address] [place], [address] Respiratory pathogens DNA an d RNA panel DUSTIN+probe (Resp)Ordered By: Susan Duran on 04-30-2024 Respiratory Panel (PCR) [facility] T4 Free Directon 04-30-2024 T4 FREE DIRECT 1.90 ng/dL High 0.76-1.46 [facility] Comment on above: Performed By: #### L 500.3400, L501.2450 #### [facility] [address] [place], [address] TSH QnOrdered By: Norbert on 04-30-2024 Thyroid Stimulating Hormone (TSH) 4.070 uIU/mL High 0.358-3.74 0 [facility] Thyroid Stim Hormone (TSH)on 04-30-2024 TSH 4.070 uIU/mL High 0.358-3.74 0 [facility] Comment on above: Performed By: #### L 100.0100, L500.2500 #### [facility] [address] [place], [address] Transitional cells LM Ql (Ur ine sed)Ordered By: Aravind Recio on 04-30-2024 Urine Transitional Epithelial Cells 0-5 SEEN /hpf 0-5 [facility] Troponin IOrdered By: Susan Duran on 04-30-2024 Troponin I High Sensitivity 43 pg/mL 3.0-54.0 [facility] Comment on above: Please Note: New Destiney t Units and Gender Specific Reference Ranges. For more information see Policy Stat Procedure Foster High Sensitivity Troponin (TNIH) and attachments. Urinalysis, Completeon 04-30 AMORPHOUS 1+ Normal [facility] Comment on above: Order Comment: COLLE CTOR TO SPECIFY Performed By: #### L 100.0100, L500.2500 #### [facility] [address] [place], [address] BACTERIA 2+ /hpf Normal None Seen [facility] Comment on above: Order Comment: COLLE CTOR TO SPECIFY Performed By: #### L 100.0100, L500.2500 #### [facility] [address] [place], [address] EPI,RENAL 0-5 SEEN Normal 0-5 [facility] Comment on above: Order Comment: COLLE CTOR TO SPECIFY Performed By: #### L 100.0100, L500.2500 #### [facility] [address] [place], [address] EPI,SQUAMOUS 5-10 SEEN Normal 5-10 [facility] Comment on above: Order Comment: LISANDRA CTOR TO SPECIFY Performed By: #### L 100.0100, L500.2500 #### [facility] [address] [place], [address] EPI,TRANSITION 0-5 SEEN Normal 0-5 [facility] Comment on above: Order Comment: LISANDRA CTOR TO SPECIFY Performed By: #### L 100.0100, L500.2500 #### [facility] [address] [place], [address] RBC 0-5 SEEN Normal 0-5 [facility] Comment on above: Order Comment: LISANDRA CTOR TO SPECIFY Performed By: #### L 100.0100, L500.2500 #### [facility] [address] [place], [address] WBC 0-5 SEEN Normal 0-5 [facility] Comment on above: Order Comment: LISANDRA CTOR TO SPECIFY Performed By: #### L 100.0100, L500.2500 #### [facility] [address] [place], [address] Mucus Ql (Urine sed) 0 SEEN Normal [facility] Comment on above: Order Comment: LISANDRA CTOR TO SPECIFY Performed By: #### L 100.0100, L500.2500 #### [facility] [address] [place], [address] Urine blood detectionOrdered By: Aravind Recio on 04-30-2024 Urine Occult Blood Negative Negative [facility] Urine clarityOrdered By: Addy Recio on 04-30-2024 Clarity (U) Clear Clear [facility] Urine color determinationOrd ered By: Aravind Recio on 04-30-2024 Color (U) Yellow Yellow [facility] Urine cultureOrdered By: Aut umn White on 04-30-2024 Bacteria identified Cx Nom (U) Positive Abnormal [facility] Urine leukocyte esterase det ection by dipstickOrdered By: Aravind Recio on 04-30-2024 Leukocyte esterase Test strip Ql (U) 100 /ul High Negative [facility] Urine pHOrdered By: Aravind thomas on 04-30-2024 pH (U) 7.0 [pH] 5.0 - 8.0 [facility] Urine sediment bacteria coun t by microscopy (number/high power field)Ordered By: Aravind Recio on 04-30-2024 Bacteria LM.HPF (Urine sed) [#/Area] 2 /[HPF] None Seen [facility] Urine specific gravity measu rementOrdered By: Aravind Recio on 04-30-2024 Specific gravity (U) [Rel density] 1.010 1.002-1.03 0 [facility] Urobilinogen Ql (U)Ordered B y: Aravind Recio on 04-30-2024 Urobilinogen (U) [Mass/Vol] 8 mg/dL High Normal [facility] White blood cell countOrdere d By: Aravind Recio on 04-30-2024 Urine WBC 0-5 SEEN /hpf 0-5 [facility] aPTT Coag (PPP) [Time]Ordere d By: Aravind Recio on 04-30-2024 aPTT Coag (Bld) [Time] 32.3 s 24.1-36.2 [facility] CNPNon 04-24-2024 CNPN Telephone (GIOVANNI) MICHAEL MEIER ([id number]) 1940 F Date Time Provider Department 04/24/24 [facility] During your visit today, we recorded the following information about you: Aly Tolentino LPN 04/24/2024 2:36 PM Signed Pt calling stating she has been having muscular leg pain from her knee to her hip of right leg x 2 weeks. States it does not hurt to walk or sit but it is hard to get up from a sitting position. Does not notice any redness or warmth of leg. States she was doing PT but they had to stop d/t it was aggravating the area. Pt is not able to come in for appointment today. Requesting Thurs if possible. Pt was scheduled 04/27/24 with Key Portillo. Aly Tolentino LPN Allergies As of Date: 04/24/2024 Noted Allergy Reaction CIPROFLOXACIN 09/05/2018 2 - Rash DEMEROL (MEPERIDINE (PF)) 02/06/2011 11 - Vomiting OPIOIDS - MORPHINE ANALOGUES 03/17/2001 5 - Intolerance Comments: nausea, dizzy, sees things OPIOIDS-MEPERIDINE AND RELATED 02/17/2001 Comments: nausea/vomiting PENICILLIN G 02/17/2001 Comments: imani PRAVACHOL (PRAVASTATIN SODIUM) 03/09/2016 14 - Other: See Comments Comments: Leg cramps SULFA (SULFONAMIDE ANTIBIOTICS) 03/17/2001 Comments: imani VICODIN (HYDROCODONE-ACETAMINOPHE* 5 - Intolerance Comments: dizzy,nausea,vomiting,headac he ZITHROMAX (AZITHROMYCIN) 05/20/2017 5 - Intolerance Date Reviewed: 04/10/2024 Reviewed by: Sharon Jarrett APRN.HATCHERY MAN - Fully Assessed Reason for Visit: Leg Pain [1219] Prescriptions as of 04/24/2024 - sucralfate (CARAFATE) 100 mg/mL suspension Take 10 mL by mouth four times daily. - Omeprazole Magnesium (PRILOSEC OTC) 20 mg tablet Take 1 tablet by mouth once daily. - cyanocobalamin (VITAMIN B-12) 1,000 mcg tab Take 1,000 mcg by mouth once daily. - spironolactone (ALDACTONE) 25 mg tablet Take 25 mg by mouth once daily. - hydrALAZINE (APRESOLINE) 25 mg tablet Take 25 mg by mouth once daily. - albuterol HFA (PROVENTIL HFA, VENTOLIN HFA) 90 mcg/actuation inhaler Inhale 2 Puffs as instructed every 4 hours as needed. - LORazepam (ATIVAN) 0.5 mg Take 1 tablet by mouth two times a day as needed (anxiety attack). - meloxicam (MOBIC) 15 mg tablet Take 1 tablet by mouth once daily. Take with food. - fluticasone (FLOVENT) 110 mcg/actuation inhaler Inhale 1 Puff as instructed two times a day. Shake well before use. Rinse mouth after use. - levothyroxine (SYNTHROID) 50 mcg tablet Take 1 tablet by mouth daily before breakfast. In the morning, Take on empty stomach at least 30 min before eating. For thyroid. - PARoxetine (PAXIL) 20 mg tablet Take 1 tablet by mouth once daily. In the evening - rosuvastatin (CRESTOR) 10 mg tablet Take 1 tablet by mouth daily at bedtime. - guaiFENesin (MUCINEX) 600 mg 12 hr tablet Take 1 tablet by mouth two times a day as needed for cold/allergy symptoms. - RESTASIS 0.05 % ophthalmic emulsion - Azelastine HCl (OPTIVAR) 0.05 % ophthalmic solution - aspirin, enteric coated (ASPIRIN, ENTERIC COATED) 81 mg EC tablet Take 81 mg by mouth once daily. - PACERONE 200 mg tablet Take 200 mg by mouth once daily. - ubidecarenone (COQ-10 ORAL) Take by mouth. - diltiazem CD (CARDIZEM CD) 240 mg 24 hr capsule Take 1 capsule by mouth once daily. - losartan (COZAAR) 100 mg tablet Take 1 tablet by mouth once daily. 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] 02/17/2001 Melanoma of skin, site unspecified [C43.9] 01/09/2012 ALLERGIC RHINITIS NOS [J30.9] Other and unspecified hyperlipidemia [E78.5] 03/11/2015 Primary hypertension [I10] Unspecified gastritis and gastroduodenitis [535* 03/11/2015 Actinic keratosis [L57.0] 01/20/2007 03/11/2015 Other chronic dermatitis due to solar radiation*01/20/2007 01/09/2012 Scar condition and fibrosis of skin [L90.5] 01/20/2007 03/11/2015 SOLAR LENGINES///DYSCHROMIA OTHER [L81.9] 01/20/2007 01/09/2012 Other seborrheic keratosis [L82.1] 01/20/2007 01/09/2012 NEVUS///BENIGN COLIN SKIN TRUNK [D23.5] 01/20/2007 01/09/2012 NEVI///BENIGN COLIN SKIN FACE NEC [D23.30] 01/20/2007 01/09/2012 SEBACEOUS HYPERPLASIA///SEBACEOUS GLAND DIS NOS*01/20/2007 01/09/2012 DYSMETABOLIC SYNDROME X [E88.810] 07/12/2007 A-fib (HCC) [I48.91] 10/08/2010 03/11/2015 Personal history of malignant melanoma of skin *02/08/2011 Actinic skin damage [L57.8] 01/09/2012 03/11/2015 Solar Lentigines [L81.4] 01/09/2012 03/11/2015 Surgical Scars [L90.5] 01/09/2012 03/11/2015 Irriated//Inflamed Seborrheic Keratoses [L82.0] 12/01/2013 03/11/2015 Other Seborrheic Keratoses [L82.1] 12/01/2013 03/11/2015 Xerosis cutis [L85.3] 12/01/2013 03/11/2015 Cutaneous skin tags [L91.8] 12/01/2013 03/11/2015 Hyperlipidemia [E78.5] 03/11/2015 08/16/2015 Paroxysmal atrial fibrillation (HCC) [I48.0] 03/11/2015 BMI 37.0-37.9, adult [Z68.37] (more content not included)... Normal [facility] CNTHERAPYon 04-20-2024 CNTHERAPY OT/PT/Speech Visit ( LDPT) MICHAEL MEIER ([id number]) 1940 F Date Time Provider Department 04/20/24 12:45 PM SARAH MERCHANT Date Time Provider Department Center 04/20/2024 12:45 PM [id number][facility] Reason for Visit: Physical Therapy [503] PT Discharge [752] Primary Visit Diagnosis:Difficulty walking [R26.2] Other Visit Diagnoses:Weakness [R53.1] Imbalance [R26.89] Allergies As of Date: 04/20/2024 Noted Allergy Reaction CIPROFLOXACIN 09/05/2018 2 - Rash DEMEROL (MEPERIDINE (PF)) 02/06/2011 11 - Vomiting OPIOIDS - MORPHINE ANALOGUES 03/17/2001 5 - Intolerance Comments: nausea, dizzy, sees things OPIOIDS-MEPERIDINE AND RELATED 02/17/2001 Comments: nausea/vomiting PENICILLIN G 02/17/2001 Comments: hamidaes PRAVACHOL (PRAVASTATIN SODIUM) 03/09/2016 14 - Other: See Comments Comments: Leg cramps SULFA (SULFONAMIDE ANTIBIOTICS) 03/17/2001 Comments: hives VICODIN (HYDROCODONE-ACETAMINOPHE* 5 - Intolerance Comments: dizzy,nausea,vomiting,headac he ZITHROMAX (AZITHROMYCIN) 05/20/2017 5 - Intolerance Date Reviewed: 04/10/2024 Reviewed by: Sharon Jarrett APRN.HATCHERY MAN - Fully Assessed Prescriptions as of 07/03/2024 - levothyroxine (SYNTHROID) 50 mcg tablet Take 1 tablet by mouth daily before breakfast. In the morning, Take on empty stomach at least 30 min before eating. For thyroid. - fluticasone-salmeterol (ADVAIR DISKUS) 250-50 mcg/dose inhaler Inhale 1 Puff as instructed two times a day. RINSE AND GARGLE MOUTH WITH WATER AFTER EACH USE. - Nebulizer Accessories kit 1 Kit as directed. - hydroCHLOROthiazide 12.5 mg capsule Take 1 capsule by mouth once daily. - LORazepam (ATIVAN) 0.5 mg Take 1 tablet by mouth two times a day as needed (anxiety attack). - rOPINIRole (REQUIP) 1 mg tablet Take 1 tablet by mouth daily at bedtime. - PARoxetine (PAXIL) 20 mg tablet Take 1 tablet by mouth once daily. In the evening - sucralfate (CARAFATE) 100 mg/mL suspension Take 10 mL by mouth four times daily. - Omeprazole Magnesium (PRILOSEC OTC) 20 mg tablet Take 1 tablet by mouth once daily. - cyanocobalamin (VITAMIN B-12) 1,000 mcg tab Take 1,000 mcg by mouth once daily. - spironolactone (ALDACTONE) 25 mg tablet Take 25 mg by mouth once daily. - hydrALAZINE (APRESOLINE) 25 mg tablet Take 50 mg by mouth two times a day at 6 am and 9 pm. - albuterol HFA (PROVENTIL HFA, VENTOLIN HFA) 90 mcg/actuation inhaler Inhale 2 Puffs as instructed every 4 hours as needed. - meloxicam (MOBIC) 15 mg tablet Take 1 tablet by mouth once daily. Take with food. - rosuvastatin (CRESTOR) 10 mg tablet Take 1 tablet by mouth daily at bedtime. - guaiFENesin (MUCINEX) 600 mg 12 hr tablet Take 1 tablet by mouth two times a day as needed for cold/allergy symptoms. - RESTASIS 0.05 % ophthalmic emulsion - Azelastine HCl (OPTIVAR) 0.05 % ophthalmic solution - aspirin, enteric coated (ASPIRIN, ENTERIC COATED) 81 mg EC tablet Take 81 mg by mouth once daily. - PACERONE 200 mg tablet Take 200 mg by mouth once daily. - ubidecarenone (COQ-10 ORAL) Take by mouth. - diltiazem CD (CARDIZEM CD) 240 mg 24 hr capsule Take 1 capsule by mouth once daily. - losartan (COZAAR) 100 mg tablet Take 1 tablet by mouth once daily. Normal [facility] [id number] 04-18-2024 [id number] HNO ID: [id number] Author: SARAH MERCHANT PT Service: ? Author Type: Physical Therapist Type: [id number] Filed: 04/18/2024 19:04 Note Text: [facility] Physical Therapy Plan of Care Certification Patient Name: Michael Meier : 1940 CC #: [id number] Date: 04/18/2024 To: Geeta Cadet,* From Therapist: Sarah Merchant PT RE: Patient Certification/ Recertification Your review, approval and electronic signature are required in order to comply with Payor: MEDICARE / Plan: MEDICARE A AND B / Product Type: Medicare / regulations. The identified Physical Therapy PLAN OF CARE for the patient is as follows: R26.2 Difficulty walking (primary encounter diagnosis) R26.89 Imbalance R53.1 Weakness PLAN OF CARE UPDATE: Assessment: Michael Meier demonstrates minimal improvement in rising from a chair, walking, and physical activities. The patient has progressed toward goals. Patient continues to present with impairments in ADL's, balance, gait, independence in exercise, overall function, strength, and symptom management that interfere with walking, walking in the community, physical activities, recreational activities, carrying, heavy exertion . Current prognosis is Fair due to: advanced age, chronic nature of impairments, limited tolerance to activity, clinical presentation . The patient may benefit from continued skilled therapy services to meet the updated goals for this plan of care as noted below. However pt appears to be reaching current rehab potential so will likely DC over the next few weeks. Goals for Episode of Care: created on 11/15/23 [place] in home exercise program. Patient will demonstrate increase in B UE AND LE strength to 4+/5 during manual muscle testing in order to improve function for home management tasks and prior functional tasks. Patient will Improve Timed Up and Go to 12 seconds to demonstrate decreased risk of falling. Patient will improve 5 time sit to stand to demonstrate improvement in functional lower extremity strength. Patient will report no falls. Patient will demonstrate independent and proper use of assisstive device to allow for improved walking quality and safety therefore reducing the risk of falls. Patient Goals: I don't know why I'm here. I guess maybe to strengthen my legs Planned Interventions, Frequency, and Duration: 2x/week (1-2x/wk), Patient to be seen for Therapeutic exercise (21163), Neuromuscular re-education (71061), Therapeutic activities (20444), Self-senior care management (03564), Gait Training (36137), Patient/Family/Caregiver Education, General Conditioning PLAN FOR NEXT VISIT: continue to progress endurance, strength, balance and gait. promote increased mobility/activity at home For further details regarding this patient refer to the Physical Therapy electronically documented visit dated 04/18/2024. Provider Attestation I have reviewed the treatment plan for Michael Meier, CCF# [id number] for the period of 04/18/24 -- 05/18/24, established on 04/18/2024. Signature certifies the need for therapy services. Normal [facility] CNTHERAPYon 04-18-2024 CNTHERAPY OT/PT/Speech Visit ( LDPT) HARDEEPMICHAEL ([id number]) 1940 F Date Time Provider Department 04/18/24 1:30 PM SARAH MRECHANT LDPT Date Time Provider Department Center 04/18/2024 1:30 PM [id number], CARLA LDPT [facility] Reason for Visit: PT Progress Note [1596] Primary Visit Diagnosis:Difficulty walking [R26.2] Other Visit Diagnoses:Imbalance [R26.89] Weakness [R53.1] Allergies As of Date: 04/18/2024 Noted Allergy Reaction CIPROFLOXACIN 09/05/2018 2 - Rash DEMEROL (MEPERIDINE (PF)) 02/06/2011 11 - Vomiting OPIOIDS - MORPHINE ANALOGUES 03/17/2001 5 - Intolerance Comments: nausea, dizzy, sees things OPIOIDS-MEPERIDINE AND RELATED 02/17/2001 Comments: nausea/vomiting PENICILLIN G 02/17/2001 Comments: imani PRAVACHOL (PRAVASTATIN SODIUM) 03/09/2016 14 - Other: See Comments Comments: Leg cramps SULFA (SULFONAMIDE ANTIBIOTICS) 03/17/2001 Comments: imani VICODIN (HYDROCODONE-ACETAMINOPHE* 5 - Intolerance Comments: dizzy,nausea,vomiting,headac he ZITHROMAX (AZITHROMYCIN) 05/20/2017 5 - Intolerance Date Reviewed: 04/10/2024 Reviewed by: Sharon Jarrett APRN.HATCHERY MAN - Fully Assessed Prescriptions as of 05/08/2024 - PARoxetine (PAXIL) 20 mg tablet Take 1 tablet by mouth once daily. In the evening - sucralfate (CARAFATE) 100 mg/mL suspension Take 10 mL by mouth four times daily. - Omeprazole Magnesium (PRILOSEC OTC) 20 mg tablet Take 1 tablet by mouth once daily. - cyanocobalamin (VITAMIN B-12) 1,000 mcg tab Take 1,000 mcg by mouth once daily. - spironolactone (ALDACTONE) 25 mg tablet Take 25 mg by mouth once daily. - hydrALAZINE (APRESOLINE) 25 mg tablet Take 25 mg by mouth once daily. - albuterol HFA (PROVENTIL HFA, VENTOLIN HFA) 90 mcg/actuation inhaler Inhale 2 Puffs as instructed every 4 hours as needed. - LORazepam (ATIVAN) 0.5 mg Take 1 tablet by mouth two times a day as needed (anxiety attack). - meloxicam (MOBIC) 15 mg tablet Take 1 tablet by mouth once daily. Take with food. - fluticasone (FLOVENT) 110 mcg/actuation inhaler Inhale 1 Puff as instructed two times a day. Shake well before use. Rinse mouth after use. - levothyroxine (SYNTHROID) 50 mcg tablet Take 1 tablet by mouth daily before breakfast. In the morning, Take on empty stomach at least 30 min before eating. For thyroid. - rosuvastatin (CRESTOR) 10 mg tablet Take 1 tablet by mouth daily at bedtime. - guaiFENesin (MUCINEX) 600 mg 12 hr tablet Take 1 tablet by mouth two times a day as needed for cold/allergy symptoms. - RESTASIS 0.05 % ophthalmic emulsion - Azelastine HCl (OPTIVAR) 0.05 % ophthalmic solution - aspirin, enteric coated (ASPIRIN, ENTERIC COATED) 81 mg EC tablet Take 81 mg by mouth once daily. - PACERONE 200 mg tablet Take 200 mg by mouth once daily. - ubidecarenone (COQ-10 ORAL) Take by mouth. - diltiazem CD (CARDIZEM CD) 240 mg 24 hr capsule Take 1 capsule by mouth once daily. - losartan (COZAAR) 100 mg tablet Take 1 tablet by mouth once daily. Letter Text Normal [facility] CNOVon 04-10-2024 [facility] Office Visit (GENSWS ) MICHAEL MEIER ([id number]) 1940 F Date Time Provider Department 04/10/24 4:00 PM SHARON JARRETT During your visit today, we recorded the following information about you: Sharon Jarrett APRN.CNP 04/10/2024 4:04 PM Signed FOLLOW UP VISIT - ENDOSCOPY Michael Meier 1940 [id number] REFERRING PHYSICIAN: No referring provider defined for this encounter. Michael Meier is a patient I am following for epigastric pain. Dr. De León performed upper endoscopy on 03/31/24. The patient was found to have Impression: - 3 cm hiatal hernia. - Z-line regular, 37 cm from the incisors. Biopsied. - Gastritis, characterized by congestion (edema), erosions, erythema and linear erosions. Biopsied. - Normal examined duodenum. Biopsied. Pathology demonstrated: FINAL DIAGNOSIS A. Small bowel, duodenum, biopsy: - Small bowel mucosa with no significant diagnostic alterations. B. Stomach, biopsy: - Chronic inactive gastritis. - No morphologic evidence of Helicobacter pylori organisms. C. Esophagus, distal, biopsy: - Squamous esophageal mucosa with no significant diagnostic alterations. D. Esophagus, mid, biopsy: - Squamous esophageal mucosa with no significant diagnostic alterations. AEB/kr 04/04/2024 The patient notes some increased belching and stomach irritation with things like coffee or citrus foods since the procedure. She notes drinking 1 cup of coffee and the rest decaf- she also has been drinking celsius energy drinks. She does note increased stress. She has carafate at home and uses it PRN with relief. VITALS: There were no vitals taken for this visit. General: patient is alert, cooperative, pleasant and in no acute distress On examination, the abdomen is benign. Assessment ASSESSMENT/PLAN: 1. Other gastritis without bleeding - ICD9: 535.40, ICD10: K29.60 - Work on lifestyle factors that aggravate gastritis - Avoid NSIADs, laying down within 3 hours after eating, eat smaller meals - Begin Omeprazole 20mg daily for 3 mos - May use carafate The operative findings and pathology report were reviewed with the patient, and the patient has had the opportunity to ask questions and have questions answered. If the patient notes any problems or changes in bowel function, the patient should contact me immediately. Otherwise I recommend follow up endoscopy as symptoms dictate. HM updated and recall letter generated. Discussed treatment plan and patient voices understanding. Patient's questions answered appropriately. Medications and potential side effects were discussed and patient voices understanding. Return to the office as scheduled or as needed for worsening/no improvement. Sharon Jarrett APRN.CARMELINA Allergies As of Date: 04/10/2024 Noted Allergy Reaction CIPROFLOXACIN 09/05/2018 2 - Rash DEMEROL (MEPERIDINE (PF)) 02/06/2011 11 - Vomiting OPIOIDS - MORPHINE ANALOGUES 03/17/2001 5 - Intolerance Comments: nausea, dizzy, sees things OPIOIDS-MEPERIDINE AND RELATED 02/17/2001 Comments: nausea/vomiting PENICILLIN G 02/17/2001 Comments: imani PRAVACHOL (PRAVASTATIN SODIUM) 03/09/2016 14 - Other: See Comments Comments: Leg cramps SULFA (SULFONAMIDE ANTIBIOTICS) 03/17/2001 Comments: imani VICODIN (HYDROCODONE-ACETAMINOPHE* 5 - Intolerance Comments: dizzy,nausea,vomiting,headac he ZITHROMAX (AZITHROMYCIN) 05/20/2017 5 - Intolerance Date Reviewed: 04/10/2024 Reviewed by: Sharon Jarrett APRN.HATCHERY MAN - Fully Assessed Reason for Visit: Follow Up [171] Cmt: EGD Primary Visit Diagnosis:Other gastritis without bleeding [K29.60] Order(s):Omeprazole Magnesium (PRILOSEC OTC) 20 mg tabletTake 1 tablet by mouth once daily.Disp: 90 tabletRfl: 0 Prescriptions as of 04/10/2024 - Omeprazole Magnesium (PRILOSEC OTC) 20 mg tablet Take 1 tablet by mouth once daily. - cyanocobalamin (VITAMIN B-12) 1,000 mcg tab Take 1,000 mcg by mouth once daily. - spironolactone (ALDACTONE) 25 mg tablet Take 25 mg by mouth once daily. - hydrALAZINE (APRESOLINE) 25 mg tablet Take 25 mg by mouth once daily. - albuterol HFA (PROVENTIL HFA, VENTOLIN HFA) 90 mcg/actuation inhaler Inhale 2 Puffs as instructed every 4 hours as needed. - LORazepam (ATIVAN) 0.5 mg Take 1 tablet by mouth two times a day as needed (anxiety attack). - meloxicam (MOBIC) 15 mg tablet Take 1 tablet by mouth once daily. Take with food. - fluticasone (FLOVENT) 110 mcg/actuation inhaler Inhale 1 Puff as instructed two times a day. Shake well before use. Rinse mouth after use. - levothyroxine (SYNTHROID) 50 mcg tablet Take 1 tablet by mouth daily before breakfast. In the morning, Take on empty stomach at least 30 min before eating. For thyroid. - PARoxetine (PAXIL) 20 mg tablet Take 1 tablet by mouth once daily. In the evening - rosuvastatin (CR (more content not included)... Normal [facility] ANES POSTPROC EVALon 024 ANES POSTPROC EVAL HNO ID: [id number] Author: YVONNE MANLEY MD Service: Anesthesiology Author Type: Anesthesiologist Type: Anesthesia Postprocedure Evaluation Filed: 03/31/2024 11:44 Note Text: POST ANESTHESIA EVALUATION NOTE : 1940 Procedure Summary Date: 03/31/24 Room / Location: [facility]oscopy Anesthesia Start: 1053 Anesthesia Stop: 1115 Procedure: EGD DIAGNOSTIC Diagnosis: Epigastric abdominal pain Pulmonary hypertension (HCC) (Epigastric abdominal pain) Scheduled Providers: Raymundo De León MD; Yvonne Manley MD; Kelsea Mo APRN.CARTOGRAPHY/MAPPING TECHNICIAN Responsible Provider: Yvonne Manley MD Anesthesia Type: MAC ASA Status: 3 Anesthesia Type: MAC Last Vitals Vitals Value Taken Time BP 163/74 03/31/24 1130 Temp 03/31/24 1144 Pulse 60 03/31/24 1140 Resp 18 03/31/24 1120 SpO2 95 % 03/31/24 1140 Vitals shown include unfiled device data. Post Anesthesia Patient Status Patient Evaluation: PACU. PACU/ICU Patient Condition: stable. Anticipated Disposition: phase 2 then home. Neurological Status: aware and responsive. Pulmonary Status: breathing comfortably on room air Airway Control: returned to baseline unsupported. Cardiovascular Status: stable. Pain Management: clinically adequate - multimodal analgesia pain management approach Postoperative Hydration: acceptable. Intraoperative Events: no significant anesthesia events Post Operative Nausea/Vomiting Status: no significant post operative nausea or vomiting Recommendation: continue current plan of care. Anesthesia Observations No Documentation SIGNATURE: Yvonne Manley MD PATIENT NAME: Michael Meier DATE: March 31, 2024 TIME: 11:44 AM CSN: [id number] [facility] ANES PRE-OPon 03-31-2024 ANES PRE-OP HNO ID: [id number] Author: YVONNE MANLEY MD Service: Anesthesiology Author Type: Anesthesiologist Type: Anesthesia Preprocedure Evaluation Filed: 03/31/2024 10:48 Note Text: ANESTHESIOLOGY DAY OF SURGERY NOTE : 1940 Procedure Information Date/Time: 03/31/24 1115 Scheduled providers: Raymundo De León MD; Yvonne Manley MD; Kelsea Mo APRN.CARTOGRAPHY/MAPPING TECHNICIAN Procedure: EGD DIAGNOSTIC Location: [facility] Estimated body mass index is 38.27 kg/m? as calculated from the following: Height as of 03/27/24: 165.1 cm (5' 5). Weight as of 03/27/24: 104.3 kg (230 lb). 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 Tracheostomy tube not present Mallampati: II. TM distance: >3 FB. Neck ROM: full ROM without neurological symptoms. Mouth opening: adequate. Short neck: no. Thick neck: no DENTAL Dental findings: missing tooth/teeth. Dentures, upper: partial. Dentures, lower: partial. Additional exam findings: yes. CARDIOVASCULAR Rhythm: regular Rate: normal PULMONARY Breath sounds clear to auscultation. ABDOMINAL Obese: obesity present. II - ANESTHESIA PLAN ASA Score: 3 Anesthetic Plan: MAC The patient is not a current smoker. NPO Status: adequate Beta Tenzin Monitoring Plan Monitoring plan: standard ASA. Post Procedure Analgesic Plan Postoperative analgesic plan: multimodal analgesia. Informed Consent Anesthetic risks, benefits, alternatives, personnel and consent discussed: yes. Patient / Responsible Alliance Party agrees to proceed: yes Patient / Surrogate agrees to blood products: blood products not planned DNR status not reviewed with patient and/or family prior to surgery. Significant changes in the patient condition since the History and Physical, not otherwise documented in primary service progress note: no. Potential Anesthesia issues that may suggest increased risk of complications or contraindication to planned procedure: none. No vitals data found for the desired time range. Outpatient Medications as of 03/31/2024 Medication Sig - spironolactone (ALDACTONE) 25 mg tablet Take 25 mg by mouth once daily. - hydrALAZINE (APRESOLINE) 25 mg tablet Take 25 mg by mouth once daily. - albuterol HFA (PROVENTIL HFA, VENTOLIN HFA) 90 mcg/actuation inhaler Inhale 2 Puffs as instructed every 4 hours as needed. - meloxicam (MOBIC) 15 mg tablet Take 1 tablet by mouth once daily. Take with food. - levothyroxine (SYNTHROID) 50 mcg tablet Take 1 tablet by mouth daily before breakfast. In the morning, Take on empty stomach at least 30 min before eating. For thyroid. - PARoxetine (PAXIL) 20 mg tablet Take 1 tablet by mouth once daily. In the evening - rosuvastatin (CRESTOR) 10 mg tablet Take 1 tablet by mouth daily at bedtime. - RESTASIS 0.05 % ophthalmic emulsion - aspirin, enteric coated (ASPIRIN, ENTERIC COATED) 81 mg EC tablet Take 81 mg by mouth once daily. - PACERONE 200 mg tablet Take 200 mg by mouth once daily. - diltiazem CD (CARDIZEM CD) 240 mg 24 hr capsule Take 1 capsule by mouth once daily. - losartan (COZAAR) 100 mg tablet Take 1 tablet by mouth once daily. - cyanocobalamin (VITAMIN B-12) 1,000 mcg tab Take 1,000 mcg by mouth once daily. - LORazepam (ATIVAN) 0.5 mg Take 1 tablet by mouth two times a day as needed (anxiety attack). - fluticasone (FLOVENT) 110 mcg/actuation inhaler Inhale 1 Puff as instructed two times a day. Shake well before use. Rinse mouth after use. - guaiFENesin (MUCINEX) 600 mg 12 hr tablet Take 1 tablet by mouth two times a day as needed for cold/allergy symptoms. - Azelastine HCl (OPTIVAR) 0.05 % ophthalmic solution - sucralfate (CARAFATE) 100 mg/mL suspension Take 10 mL by mouth four times daily. - ubidecarenone (COQ-10 ORAL) Take by mouth. Facility-Administered Medications as of 03/31/2024 Medication Dose Route Frequency - lactated ringers iv infusion 30 mL/hr INTRAVENOUS CONTINUOUS I have interviewed and examined the patient. I have reviewed the medical record and/or the pre-anesthesia evaluation, pertinent labs, and test results. This contains updated information obtained within 48 hours of Surgery/Procedure. SIGNATURE (more content not included)... [facility] EGD Study observation Narrat rupa 03-31-2024 [facility] Patient Name: Michael Meier Procedure Date: 03/31/2024 10:20 AM Date of : 1940 Admit Type: Outpatient Age: 83 Room: [facility] Gender: Female Note Status: Finalized Attending MD: Raymundo De León MD, [id number] Procedure: Upper GI endoscopy Indications: Epigastric abdominal pain, Heartburn Providers: Raymundo De León MD Patient Profile: This is an 83 year old female. Refer to note in patient chart for documentation of history and physical. Referring Physician: Sharon Jarrett (Referring MD) Medicines: See the Anesthesia note for documentation of the administered medications Complications: No immediate complications. Estimated blood loss: Minimal. Requesting Provider: Procedure: Pre-Anesthesia Assessment: - Prior to the procedure, a History and Physical was performed, and patient medications and allergies were reviewed. The patient's tolerance of previous anesthesia was also reviewed. The risks and benefits of the procedure and the sedation options and risks were discussed with the patient. All questions were answered, and informed consent was obtained. Prior Anticoagulants: The patient has taken no anticoagulant or antiplatelet agents except for aspirin. ASA Grade Assessment: III - A patient with severe systemic disease. After reviewing the risks and benefits, the patient was deemed in satisfactory condition to undergo the procedure. After obtaining informed consent, the endoscope was passed under direct vision. Throughout the procedure, the patient's blood pressure, pulse, and oxygen saturations were monitored continuously. The Endoscope was introduced through the mouth, and advanced to the second part of duodenum. The upper GI endoscopy was accomplished without difficulty. The patient tolerated the procedure well. Moderate Sedation: The following parameters were monitored: oxygen saturation, heart rate, blood pressure, respiratory rate, EKG, adequacy of pulmonary ventilation, and response to care. MAC anesthesia was administered by the anesthesia team. Total Procedure Duration: 0 hours 3 minutes 50 seconds Findings: A 3 cm hiatal hernia was present. The Z-line was regular and was found 37 cm from the incisors. Biopsies were taken with a cold forceps for histology. Localized moderate inflammation characterized by congestion (edema), erosions, erythema and linear erosions was found in the prepyloric region of the stomach. Biopsies were taken with a cold forceps for Helicobacter pylori testing. The examined duodenum was normal. Biopsies for histology were taken with a cold forceps for evaluation of celiac disease. Impression: - 3 cm hiatal hernia. - Z-line regular, 37 cm from the incisors. Biopsied. - Gastritis, characterized by congestion (edema), erosions, erythema and linear erosions. Biopsied. - Normal examined duodenum. Biopsied. Recommendation: - Patient has a contact number available for emergencies. The signs and symptoms of potential delayed complications were discussed with the patient. Return to normal activities tomorrow. Written discharge instructions were provided to the patient. - Resume previous diet. - Continue present medications. - Await pathology results. - Repeat upper endoscopy PRN for surveillance. - Return to nurse practitioner at appointment to be scheduled. Procedure Code(s): --- Professional --- 74592, Esophagogastroduodenoscopy, flexible, transoral; with biopsy, single or multiple Diagnosis Code(s): --- Professional --- K44.9, Diaphragmatic hernia without obstruction or gangrene K29.70, Gastritis, unspecified, without bleeding R10.13, Epigastric pain (more content not included)... [facility] Radiology Study observation (narrative) [facility] HISTORY PHYSICALon HISTORY PHYSICAL HNO ID: [id number] Author: RAYMUNDO DE LEÓN MD Service: General Surgery Author Type: Physician Type: H&P Filed: 03/31/2024 10:47 Note Text: HISTORY AND PHYSICAL Michael Meier : 1940 REFERRING PHYSICIAN: Michael Puga [address] [facility] [address] CHIEF COMPLAINT: Patient presents with: Consult: EGD consultation, epigastric abdominal pain. HPI: Michael is a 83 year old female referred for endoscopy. Michael notes increasing in epigastric pain. Michael notes occasional heartburn. -Notes belching even without eating Epigastric pain triggered by coffee, lettuce, broccoli, tomato based, citrus fruits -gets relief with Carafate PRN -not currently on PPI Michael denies dysphagia. Michael denies a history of ulcers/ peptic ulcer disease. Michael denies family history of gastric issues. Michael follows with [facility]. Last OV 02/2024- she has had an increased in SOB with exertion. Updated ECHO with EF of 60%. Pulmonary artery systolic pressure 66 mmHg. 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 Also hx of A. Fib. Exertional SOB- states it has become worse after having pneumonia with hospitalization in October. Requested wheelchair for use with long distances but was denied. Referred today after walking into the office she needed to use Albuterol inhaler. Michael has undergone prior endoscopy. Last EGD was 01/[address] De León at [facility] Sedation:Midazolam 4 mg IV, Fentanyl 100 micrograms IV, Benzocaine spray, Ondansetron 4 mg IV Impression: - Z-line regular, 34 cm from the incisors. Biopsied. - Gastritis. Biopsied. - Normal examined duodenum. No specimens collected. FINAL DIAGNOSIS A. Stomach, antrum, biopsy: - Antral type gastric mucosa with changes of mild inactive chronic gastritis. - An H. pylori immunohistochemical stain will be performed and reported as an addendum. B. Esophagus, distal, biopsy: - Squamous mucosa with no diagnostic abnormalities. - No prominence in eosinophils or lymphocytes and no intestinal metaplasia. CURRENT MEDICATIONS Current Outpatient Medications Medication Sig cyanocobalamin (VITAMIN B-12) 1,000 mcg tab Take 1,000 mcg by mouth once daily. spironolactone (ALDACTONE) 25 mg tablet Take 25 mg by mouth once daily. hydrALAZINE (APRESOLINE) 25 mg tablet Take 25 mg by mouth once daily. albuterol HFA (PROVENTIL HFA, VENTOLIN HFA) 90 mcg/actuation inhaler Inhale 2 Puffs as instructed every 4 hours as needed. LORazepam (ATIVAN) 0.5 mg Take 1 tablet by mouth two times a day as needed (anxiety attack). meloxicam (MOBIC) 15 mg tablet Take 1 tablet by mouth once daily. Take with food. fluticasone (FLOVENT) 110 mcg/actuation inhaler Inhale 1 Puff as instructed two times a day. Shake well before use. Rinse mouth after use. levothyroxine (SYNTHROID) 50 mcg tablet Take 1 tablet by mouth daily before breakfast. In the morning, Take on empty stomach at least 30 min before eating. For thyroid. PARoxetine (PAXIL) 20 mg tablet Take 1 tablet by mouth once daily. In the evening guaiFENesin (MUCINEX) 600 mg 12 hr tablet Take 1 tablet by mouth two times a day as needed for cold/allergy symptoms. RESTASIS 0.05 % ophthalmic emulsion Azelastine HCl (OPTIVAR) 0.05 % ophthalmic solution sucralfate (CARAFATE) 100 mg/mL suspension Take 10 mL by mouth four times daily. aspirin, enteric coated (ASPIRIN, ENTERIC COATED) 81 mg EC tablet Take 81 mg by mouth once daily. PACERONE 200 mg tablet Take 200 mg by mouth once daily. ubidecarenone (COQ-10 ORAL) Take by mouth. diltiazem CD (CARDIZEM CD) 240 mg 24 hr capsule Take 1 capsule by mouth once daily. losartan (COZAAR) 100 mg tablet Take 1 tablet by mouth once daily. rosuvastatin (CRESTOR) 10 mg tablet Take 1 tablet by mouth daily at bedtime. No current facility-administered medications for this visit. ALLERGIES: Ciprofloxacin, Demerol [Meperidine (Pf)], Opioids - Morphine Analogues, Opioids-Meperidine And Related, Penicillin G, Pravachol [Pravastatin Sodium], Sulfa (Sulfonamide Antibiotics), Vicodin [Hydrocodone-Acetaminophen], and Zithromax [Azithromycin] PAST MEDICAL HISTORY PAST MEDICAL HISTORY Diagnosis Date A-fib (HCC) Allergic rhinitis, cause unspecified Arrhythmia Arthritis Greater trochanteric bursitis of left hip Melanoma of skin, site unspecified 2003 back Osteoarthritis of left hip Other and unspecified hyperlipidemia Pulmonary hypertension (HCC) Situational mixed anxiety and depressive disorder Sleep apnea Stroke (HCC) Unspecified essential hypertension Unspecified gastritis and gastroduodenitis PAST SURGICAL HISTORY PAST SURGICAL HISTORY Procedure Laterality Date ABDOMINAL SURGERY HX APPENDECTOMY HX ARTHRP ACETBLR/PROX FEM PROSTC AGRFT/ALGRFT 12/09/2003 right hip, redone, 07/2004 ARTHRP ACETBLR/PROX FEM PROSTC AGRFT/ALGRFT Left 07/2016 ARTHRP KNE CONDYLEANDPLATU MEDIALANDLAT COMPARTMENTS 11/15/2009 Knee replacement, (more content not included)... [facility] SURGICAL PATHOLOGYon 024 CASE REPORT [facility] Comment on above: Order Comment: Lori mosqueda Type: TISSUE SPECIMEN Ordering Facility: [facility] Address: [address] [place] [address] Result Comment: Surg ical Pathology Report Case: [id number] Authorizing Provider: Raymundo De León MD Collected: 03/31/2024 11:01 AM Ordering Location: [facility] Received: 03/31/2024 12:34 PM Pathologist: Tanna Nathan MD Specimens: A) - Small Bowel, Duodenum, Biopsy B) - Stomach, Biopsy, r/o H. Pylori C) - Esophagus, Distal, Biopsy D) - Esophagus, Mid, Biopsy Performed By: #### S #### [facility] CLIA [id number] [address] [place] [address] [place] [address] [place] FINAL DIAGNOSIS [facility] Comment on above: Order Comment: Lori mosqueda Type: TISSUE SPECIMEN Ordering Facility: [facility] Address: [address] [place] [address] Result Comment: A. S mall bowel, duodenum, biopsy: - Small bowel mucosa with no significant diagnostic alterations. B. Stomach, biopsy: - Chronic inactive gastritis. - No morphologic evidence of Helicobacter pylori organisms. C. Esophagus, distal, biopsy: - Squamous esophageal mucosa with no significant diagnostic alterations. D. Esophagus, mid, biopsy: - Squamous esophageal mucosa with no significant diagnostic alterations. AEB/kr 04/04/2024 Performed By: #### S #### [facility] CLIA [id number] [address] [place] [address] OF [facility] FINAL PERFORMING LAB [facility] Comment on above: Order Comment: Speci men Type: TISSUE SPECIMEN Ordering Facility: [facility] Address: [address] [place] [address] Result Comment: Diag nostic interpretation performed at [facility], [address] [place] [address] CLIA# [id number] Clam Bed Worker: Todd Fields M.D. Performed By: #### S #### [facility] CLIA [id number] [address] [place] [address] OF [facility] GROSS DESCRIPTION [facility] Comment on above: Order Comment: Speci men Type: TISSUE SPECIMEN Ordering Facility: [facility] Address: [address] [place] [address] Result Comment: A. S mall Bowel, Duodenum, Biopsy Received in formalin is one piece of otto-brown, soft tissue measuring 0.6 x 0.4 x 0.2 cm. Totally submitted in one cassette. B. Stomach, Biopsy Received in formalin is one piece of otto-brown, soft tissue measuring 0.4 x 0.3 x 0.3 cm. Totally submitted in one cassette. C. Esophagus, Distal, Biopsy Received in formalin are two pieces of otto-nickerson, soft tissue aggregating to 0.5 x 0.5 x 0.3 cm. Totally submitted in one cassette. D. Esophagus, Mid, Biopsy Received in formalin is one piece of otto-nickerson, soft tissue measuring 0.7 x 0.2 x 0.2 cm. Totally submitted in one cassette. [facility] March 31, 2024 3:19 PM Gross examination performed at [facility], [address] [place] [address] Performed By: #### S #### [facility] CLIA [id number] [address] [place] [address] [place] Upper GI endoscopy 03-31-2 024 Upper GI endoscopy [facility] Patient Name: Michael Meier Procedure Date: 03/31/2024 10:20 AM Date of : 1940 Admit Type: Outpatient Age: 83 Room: [facility] Gender: Female Note Status: Finalized Attending MD: Raymundo De León MD, [id number] Procedure: Upper GI endoscopy Indications: Epigastric abdominal pain, Heartburn Providers: Raymundo De León MD Patient Profile: This is an 83 year old female. Refer to note in patient chart for documentation of history and physical. Referring Physician: Sharon Jarrett (Referring MD) Medicines: See the Anesthesia note for documentation of the administered medications Complications: No immediate complications. Estimated blood loss: Minimal. Requesting Provider: Procedure: Pre-Anesthesia Assessment: - Prior to the procedure, a History and Physical was performed, and patient medications and allergies were reviewed. The patient's tolerance of previous anesthesia was also reviewed. The risks and benefits of the procedure and the sedation options and risks were discussed with the patient. All questions were answered, and informed consent was obtained. Prior Anticoagulants: The patient has taken no anticoagulant or antiplatelet agents except for aspirin. ASA Grade Assessment: III - A patient with severe systemic disease. After reviewing the risks and benefits, the patient was deemed in satisfactory condition to undergo the procedure. After obtaining informed consent, the endoscope was passed under direct vision. Throughout the procedure, the patient's blood pressure, pulse, and oxygen saturations were monitored continuously. The Endoscope was introduced through the mouth, and advanced to the second part of duodenum. The upper GI endoscopy was accomplished without difficulty. The patient tolerated the procedure well. Moderate Sedation: The following parameters were monitored: oxygen saturation, heart rate, blood pressure, respiratory rate, EKG, adequacy of pulmonary ventilation, and response to care. MAC anesthesia was administered by the anesthesia team. Total Procedure Duration: 0 hours 3 minutes 50 seconds Findings: A 3 cm hiatal hernia was present. The Z-line was regular and was found 37 cm from the incisors. Biopsies were taken with a cold forceps for histology. Localized moderate inflammation characterized by congestion (edema), erosions, erythema and linear erosions was found in the prepyloric region of the stomach. Biopsies were taken with a cold forceps for Helicobacter pylori testing. The examined duodenum was normal. Biopsies for histology were taken with a cold forceps for evaluation of celiac disease. Impression: - 3 cm hiatal hernia. - Z-line regular, 37 cm from the incisors. Biopsied. - Gastritis, characterized by congestion (edema), erosions, erythema and linear erosions. Biopsied. - Normal examined duodenum. Biopsied. Recommendation: - Patient has a contact number available for emergencies. The signs and symptoms of potential delayed complications were discussed with the patient. Return to normal activities tomorrow. Written discharge instructions were provided to the patient. - Resume previous diet. - Continue present medications. - Await pathology results. - Repeat upper endoscopy PRN for surveillance. - Return to nurse practitioner at appointment to be scheduled. Procedure Code(s): --- Professional --- 45216, Esophagogastroduodenoscopy, flexible, transoral; with biopsy, single or multiple Diagnosis Code(s): --- Professional --- K44.9, Diaphragmatic hernia without obstruction or gangrene K29.70, Gastritis, unspecified, without bleeding R10.13, Epigastric pain R12, Heartburn CPT copyright 2021 [employer]. All rights reserved. The codes documented in this report are preliminary and upon express manager review may be revised to meet current compliance requirements. Attending Participation: I personally performed the entire procedure. Scope In: 11:00:34 AM Scope Out: 11:04:24 AM MD Raymundo Juarez MD 03/31/2024 11:08:03 AM This report has been signed electronically by Raymundo De León MD Number of Addenda: 0 Note Initiated On: 03/31/2024 10:20 AM Estimated Blood Loss: Estimated blood loss was minimal. [facility] HISTORY PHYSICALon HISTORY PHYSICAL HNO ID: [id number] Author: MARY FOSTER APRN.CARMELINA Service: ? Author Type: Nurse Practitioner Type: H&P Filed: 03/31/2024 06:46 Note Text: [facility] HISTORY AND PHYSICAL EXAMINATION SERVICE DATE: 03/27/2024 SERVICE TIME: 6:43 AM PRIMARY CARE PHYSICIAN: Michael Puga, DO Assessment Patient has the following medical conditions which may affect wilmar-operative course: JOSE on CPAP Assessment: c/w CPAP Obstructive lung disease (HCC) Assessment: rx as needed 12/2022 PFT's IMPRESSION: Spirometry is normal. The increase in FEF 25-75 post-bronchodilator reflects an improvement in the small airway obstruction. Primary hypertension Assessment: controlled on rx Hyperlipidemia Assessment: c/w statin 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 Surgery is below umbilicus, NO pacemaker function programming necessary per CIED algorithm. Last interrogation scanned into chart from 01/28/24 A-fib (HCC) Assessment: paroxymal, following [facility], daily ASA therapy Pulmonary hypertension (HCC) Assessment: moderate, RSVP 66mmHg 02/02/24 TIA (transient ischemic attack) Assessment: hx 2018, daily ASA Disorder of carotid artery (HCC) Assessment: following cardiology, only documentation found in epic states 0-29% bilaterally from 2010 Situational mixed anxiety and depressive disorder Assessment: stable on rx per pt Subclinical hypothyroidism Assessment: stable on rx Hypokalemia Assessment: taking diuretics Potassium Date Value Ref Range Status 11/25/2023 3.8 3.7 - 5.1 mmol/L Final 03/31/2023 3.3 (L) 3.7 - 5.1 mmol/L Final 12/15/2022 3.8 3.7 - 5.1 mmol/L Final Iron deficiency anemia Assessment: hx Hemoglobin (g/dL) Date Value 11/25/2023 13.7 10/29/2020 13.6 Hematocrit (%) Date Value 11/25/2023 43.0 10/29/2020 41.0 WBC (k/uL) Date Value 11/25/2023 7.65 10/29/2020 6.43 Personal history of malignant melanoma of skin Assessment: s/p excision IFG (impaired fasting glucose) Assessment: Hemoglobin A1C (%) Date Value 11/25/2023 5.0 01/16/2021 5.3 Arthritis, 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 GERD (gastroesophageal reflux disease) Assessment: otc rx as needed Keith Activity Status Index: METS: DASI Score: 0 Patient denies any chest pain or undue shortness of breath with the above physical activity. Clinical Frailty Scale: 4. Apparently vulnerable STOP-Bang Score: BMI greater than 35 kg/m2 Patient over 50 years old Denies snoring loudly Denies feeling tired, fatigued, or sleepy during the daytime Has not been observed to stop breathing or choking/gasping during sleep Denies having high blood pressure Does not have a large neck Non-male patient STOP-Bang Score: 2 [id number] Score: Age: >=75 Sex: female CHF history: No Hypertension history: Yes Stroke/TIA/thromboembolism history: Yes Vascular disease history: No Diabetes history: No [id number] Score: 6 ARISCAT Score: Age: >80 Preoperative SpO2: 91-95% Respiratory infection in the last month: No Preoperative anemia: No Surgical incision: peripheral Duration of surgery: <2 hrs Emergency procedure: No ARISCAT Score: 24 ANESTHESIA FINDINGS: Intubation History: No history of difficult intubation Significant Anesthesia Considerations: none Airway History: No history of difficult airway I - PHYSICAL EVALUATION AIRWAY Patient intubated: No. Tracheostomy tube not present Mallampati: III. TM distance: >3 FB. Neck ROM: full ROM without neurological symptoms. Mouth opening: adequate. Short neck: no. Thick neck: no Romero present: no Lip Bite Test: I Microretrognathia/Micronagth ia/Recessed Chin: No DENTAL Dentures, upper: partial. Dentures, lower: partial. II - ANESTHESIA PLAN Anesthetic Plan: other Beta Tenzin Monitoring Plan Post Procedure Analgesic Plan Prepared for Surgery: optimally prepared for surgery, pending [see comment]. CONSULTS: Patient does not require consults for optimization at this time Planned Anesthetic: other anesthesia choice The Following Tests/Procedures Have Been Initiated: No orders of the defined types were placed in this encounter. REASON FOR VISIT: Michael Meier is a 83 year old female who is scheduled for colonoscopy at the request of Dr. Raymundo De León for consultation. My final recommendation will be communicated back to the requesting physician by way of shared medical record or letter. Subjective The patient has the following: COVID-19 Immunization Status Overdue - Covid-19 Vaccine ( season) Overdue since 01/02/2024 10/14/2023 Postponed until 10/13/2024 by Marisol Cano LPN (Declined at this ti (more content not included)... Normal [facility] CNTHERAPYon 03-23-2024 CNTHERAPY OT/PT/Speech Visit ( LDPT) MICHAEL MEIER ([id number]) 1940 F Date Time Provider Department 03/23/24 12:45 PM SARAH MERCHANT LDPT Date Time Provider Department Center 03/23/2024 12:45 PM [id number], CARLA LDPT [facility] Reason for Visit: Physical Therapy [503] Primary Visit Diagnosis:Difficulty walking [R26.2] Other Visit Diagnoses:Imbalance [R26.89] Weakness [R53.1] Allergies As of Date: 03/23/2024 Noted Allergy Reaction CIPROFLOXACIN 09/05/2018 2 - Rash DEMEROL (MEPERIDINE (PF)) 02/06/2011 11 - Vomiting OPIOIDS - MORPHINE ANALOGUES 03/17/2001 5 - Intolerance Comments: nausea, dizzy, sees things OPIOIDS-MEPERIDINE AND RELATED 02/17/2001 Comments: nausea/vomiting PENICILLIN G 02/17/2001 Comments: imani PRAVACHOL (PRAVASTATIN SODIUM) 03/09/2016 14 - Other: See Comments Comments: Leg cramps SULFA (SULFONAMIDE ANTIBIOTICS) 03/17/2001 Comments: hives VICODIN (HYDROCODONE-ACETAMINOPHE* 5 - Intolerance Comments: dizzy,nausea,vomiting,headac he ZITHROMAX (AZITHROMYCIN) 05/20/2017 5 - Intolerance Date Reviewed: 03/13/2024 Reviewed by: Portia Camarillo RN - Fully Assessed Prescriptions as of 03/23/2024 - cyanocobalamin (VITAMIN B-12) 1,000 mcg tab Take 1,000 mcg by mouth once daily. - spironolactone (ALDACTONE) 25 mg tablet Take 25 mg by mouth once daily. - hydrALAZINE (APRESOLINE) 25 mg tablet Take 25 mg by mouth once daily. - albuterol HFA (PROVENTIL HFA, VENTOLIN HFA) 90 mcg/actuation inhaler Inhale 2 Puffs as instructed every 4 hours as needed. - LORazepam (ATIVAN) 0.5 mg Take 1 tablet by mouth two times a day as needed (anxiety attack). - meloxicam (MOBIC) 15 mg tablet Take 1 tablet by mouth once daily. Take with food. - fluticasone (FLOVENT) 110 mcg/actuation inhaler Inhale 1 Puff as instructed two times a day. Shake well before use. Rinse mouth after use. - levothyroxine (SYNTHROID) 50 mcg tablet Take 1 tablet by mouth daily before breakfast. In the morning, Take on empty stomach at least 30 min before eating. For thyroid. - PARoxetine (PAXIL) 20 mg tablet Take 1 tablet by mouth once daily. In the evening - rosuvastatin (CRESTOR) 10 mg tablet Take 1 tablet by mouth daily at bedtime. - guaiFENesin (MUCINEX) 600 mg 12 hr tablet Take 1 tablet by mouth two times a day as needed for cold/allergy symptoms. - RESTASIS 0.05 % ophthalmic emulsion - Azelastine HCl (OPTIVAR) 0.05 % ophthalmic solution - sucralfate (CARAFATE) 100 mg/mL suspension Take 10 mL by mouth four times daily. - aspirin, enteric coated (ASPIRIN, ENTERIC COATED) 81 mg EC tablet Take 81 mg by mouth once daily. - PACERONE 200 mg tablet Take 200 mg by mouth once daily. - ubidecarenone (COQ-10 ORAL) Take by mouth. - diltiazem CD (CARDIZEM CD) 240 mg 24 hr capsule Take 1 capsule by mouth once daily. - losartan (COZAAR) 100 mg tablet Take 1 tablet by mouth once daily. Normal [facility] CNTHERAPYon 03-20-2024 CNTHERAPY OT/PT/Speech Visit ( LDPT) BRADENMICHAEL DAVIES ([id number]) 1940 F Date Time Provider Department 03/20/24 2:15 PM SARAH MERCHANT Date Time Provider Department Center 03/20/2024 2:15 PM [id number] MERCHANT [facility] Reason for Visit: Physical Therapy [503] Primary Visit Diagnosis:Difficulty walking [R26.2] Other Visit Diagnoses:Imbalance [R26.89] Weakness [R53.1] Allergies As of Date: 03/20/2024 Noted Allergy Reaction CIPROFLOXACIN 09/05/2018 2 - Rash DEMEROL (MEPERIDINE (PF)) 02/06/2011 11 - Vomiting OPIOIDS - MORPHINE ANALOGUES 03/17/2001 5 - Intolerance Comments: nausea, dizzy, sees things OPIOIDS-MEPERIDINE AND RELATED 02/17/2001 Comments: nausea/vomiting PENICILLIN G 02/17/2001 Comments: hives PRAVACHOL (PRAVASTATIN SODIUM) 03/09/2016 14 - Other: See Comments Comments: Leg cramps SULFA (SULFONAMIDE ANTIBIOTICS) 03/17/2001 Comments: hives VICODIN (HYDROCODONE-ACETAMINOPHE* 5 - Intolerance Comments: dizzy,nausea,vomiting,headac he ZITHROMAX (AZITHROMYCIN) 05/20/2017 5 - Intolerance Date Reviewed: 03/13/2024 Reviewed by: Portia Camarillo, RN - Fully Assessed Prescriptions as of 03/20/2024 - cyanocobalamin (VITAMIN B-12) 1,000 mcg tab Take 1,000 mcg by mouth once daily. - spironolactone (ALDACTONE) 25 mg tablet Take 25 mg by mouth once daily. - hydrALAZINE (APRESOLINE) 25 mg tablet Take 25 mg by mouth once daily. - albuterol HFA (PROVENTIL HFA, VENTOLIN HFA) 90 mcg/actuation inhaler Inhale 2 Puffs as instructed every 4 hours as needed. - LORazepam (ATIVAN) 0.5 mg Take 1 tablet by mouth two times a day as needed (anxiety attack). - meloxicam (MOBIC) 15 mg tablet Take 1 tablet by mouth once daily. Take with food. - fluticasone (FLOVENT) 110 mcg/actuation inhaler Inhale 1 Puff as instructed two times a day. Shake well before use. Rinse mouth after use. - levothyroxine (SYNTHROID) 50 mcg tablet Take 1 tablet by mouth daily before breakfast. In the morning, Take on empty stomach at least 30 min before eating. For thyroid. - PARoxetine (PAXIL) 20 mg tablet Take 1 tablet by mouth once daily. In the evening - rosuvastatin (CRESTOR) 10 mg tablet Take 1 tablet by mouth daily at bedtime. - guaiFENesin (MUCINEX) 600 mg 12 hr tablet Take 1 tablet by mouth two times a day as needed for cold/allergy symptoms. - RESTASIS 0.05 % ophthalmic emulsion - Azelastine HCl (OPTIVAR) 0.05 % ophthalmic solution - sucralfate (CARAFATE) 100 mg/mL suspension Take 10 mL by mouth four times daily. - aspirin, enteric coated (ASPIRIN, ENTERIC COATED) 81 mg EC tablet Take 81 mg by mouth once daily. - PACERONE 200 mg tablet Take 200 mg by mouth once daily. - ubidecarenone (COQ-10 ORAL) Take by mouth. - diltiazem CD (CARDIZEM CD) 240 mg 24 hr capsule Take 1 capsule by mouth once daily. - losartan (COZAAR) 100 mg tablet Take 1 tablet by mouth once daily. Normal [facility] CNTHERAPYon 03-16-2024 CNTHERAPY OT/PT/Speech Visit ( LDPT) MICHAEL MEIER ([id number]) 1940 F Date Time Provider Department 03/16/24 12:45 PM SARAH MERCHANT LDPT Date Time Provider Department Center 03/16/2024 12:45 PM [id number], SARAH LDPT [facility] Reason for Visit: Physical Therapy [503] Primary Visit Diagnosis:Difficulty walking [R26.2] Other Visit Diagnoses:Imbalance [R26.89] Weakness [R53.1] Allergies As of Date: 03/16/2024 Noted Allergy Reaction CIPROFLOXACIN 09/05/2018 2 - Rash DEMEROL (MEPERIDINE (PF)) 02/06/2011 11 - Vomiting OPIOIDS - MORPHINE ANALOGUES 03/17/2001 5 - Intolerance Comments: nausea, dizzy, sees things OPIOIDS-MEPERIDINE AND RELATED 02/17/2001 Comments: nausea/vomiting PENICILLIN G 02/17/2001 Comments: hives PRAVACHOL (PRAVASTATIN SODIUM) 03/09/2016 14 - Other: See Comments Comments: Leg cramps SULFA (SULFONAMIDE ANTIBIOTICS) 03/17/2001 Comments: hives VICODIN (HYDROCODONE-ACETAMINOPHE* 5 - Intolerance Comments: dizzy,nausea,vomiting,headac he ZITHROMAX (AZITHROMYCIN) 05/20/2017 5 - Intolerance Date Reviewed: 03/13/2024 Reviewed by: Portia Camarillo, RN - Fully Assessed Prescriptions as of 03/16/2024 - cyanocobalamin (VITAMIN B-12) 1,000 mcg tab Take 1,000 mcg by mouth once daily. - spironolactone (ALDACTONE) 25 mg tablet Take 25 mg by mouth once daily. - hydrALAZINE (APRESOLINE) 25 mg tablet Take 25 mg by mouth once daily. - albuterol HFA (PROVENTIL HFA, VENTOLIN HFA) 90 mcg/actuation inhaler Inhale 2 Puffs as instructed every 4 hours as needed. - LORazepam (ATIVAN) 0.5 mg Take 1 tablet by mouth two times a day as needed (anxiety attack). - meloxicam (MOBIC) 15 mg tablet Take 1 tablet by mouth once daily. Take with food. - fluticasone (FLOVENT) 110 mcg/actuation inhaler Inhale 1 Puff as instructed two times a day. Shake well before use. Rinse mouth after use. - levothyroxine (SYNTHROID) 50 mcg tablet Take 1 tablet by mouth daily before breakfast. In the morning, Take on empty stomach at least 30 min before eating. For thyroid. - PARoxetine (PAXIL) 20 mg tablet Take 1 tablet by mouth once daily. In the evening - rosuvastatin (CRESTOR) 10 mg tablet Take 1 tablet by mouth daily at bedtime. - guaiFENesin (MUCINEX) 600 mg 12 hr tablet Take 1 tablet by mouth two times a day as needed for cold/allergy symptoms. - RESTASIS 0.05 % ophthalmic emulsion - Azelastine HCl (OPTIVAR) 0.05 % ophthalmic solution - sucralfate (CARAFATE) 100 mg/mL suspension Take 10 mL by mouth four times daily. - aspirin, enteric coated (ASPIRIN, ENTERIC COATED) 81 mg EC tablet Take 81 mg by mouth once daily. - PACERONE 200 mg tablet Take 200 mg by mouth once daily. - ubidecarenone (COQ-10 ORAL) Take by mouth. - diltiazem CD (CARDIZEM CD) 240 mg 24 hr capsule Take 1 capsule by mouth once daily. - losartan (COZAAR) 100 mg tablet Take 1 tablet by mouth once daily. Normal [facility] CNTHERAPYon 03-14-2024 CNTHERAPY OT/PT/Speech Visit ( LDPT) MICHAEL MEIER ([id number]) 1940 F Date Time Provider Department 03/14/24 10:00 AM JOY SUN Date Time Provider Department Center 03/14/2024 10:00 AM [id number] SUN [facility] Reason for Visit: Physical Therapy [503] Primary Visit Diagnosis:Difficulty walking [R26.2] Other Visit Diagnoses:Imbalance [R26.89] Weakness [R53.1] Allergies As of Date: 03/14/2024 Noted Allergy Reaction CIPROFLOXACIN 09/05/2018 2 - Rash DEMEROL (MEPERIDINE (PF)) 02/06/2011 11 - Vomiting OPIOIDS - MORPHINE ANALOGUES 03/17/2001 5 - Intolerance Comments: nausea, dizzy, sees things OPIOIDS-MEPERIDINE AND RELATED 02/17/2001 Comments: nausea/vomiting PENICILLIN G 02/17/2001 Comments: imani PRAVACHOL (PRAVASTATIN SODIUM) 03/09/2016 14 - Other: See Comments Comments: Leg cramps SULFA (SULFONAMIDE ANTIBIOTICS) 03/17/2001 Comments: hives VICODIN (HYDROCODONE-ACETAMINOPHE* 5 - Intolerance Comments: dizzy,nausea,vomiting,headac he ZITHROMAX (AZITHROMYCIN) 05/20/2017 5 - Intolerance Date Reviewed: 03/13/2024 Reviewed by: Portia Camarillo RN - Fully Assessed Prescriptions as of 03/14/2024 - cyanocobalamin (VITAMIN B-12) 1,000 mcg tab Take 1,000 mcg by mouth once daily. - spironolactone (ALDACTONE) 25 mg tablet Take 25 mg by mouth once daily. - hydrALAZINE (APRESOLINE) 25 mg tablet Take 25 mg by mouth once daily. - albuterol HFA (PROVENTIL HFA, VENTOLIN HFA) 90 mcg/actuation inhaler Inhale 2 Puffs as instructed every 4 hours as needed. - LORazepam (ATIVAN) 0.5 mg Take 1 tablet by mouth two times a day as needed (anxiety attack). - meloxicam (MOBIC) 15 mg tablet Take 1 tablet by mouth once daily. Take with food. - fluticasone (FLOVENT) 110 mcg/actuation inhaler Inhale 1 Puff as instructed two times a day. Shake well before use. Rinse mouth after use. - levothyroxine (SYNTHROID) 50 mcg tablet Take 1 tablet by mouth daily before breakfast. In the morning, Take on empty stomach at least 30 min before eating. For thyroid. - PARoxetine (PAXIL) 20 mg tablet Take 1 tablet by mouth once daily. In the evening - rosuvastatin (CRESTOR) 10 mg tablet Take 1 tablet by mouth daily at bedtime. - guaiFENesin (MUCINEX) 600 mg 12 hr tablet Take 1 tablet by mouth two times a day as needed for cold/allergy symptoms. - RESTASIS 0.05 % ophthalmic emulsion - Azelastine HCl (OPTIVAR) 0.05 % ophthalmic solution - sucralfate (CARAFATE) 100 mg/mL suspension Take 10 mL by mouth four times daily. - aspirin, enteric coated (ASPIRIN, ENTERIC COATED) 81 mg EC tablet Take 81 mg by mouth once daily. - PACERONE 200 mg tablet Take 200 mg by mouth once daily. - ubidecarenone (COQ-10 ORAL) Take by mouth. - diltiazem CD (CARDIZEM CD) 240 mg 24 hr capsule Take 1 capsule by mouth once daily. - losartan (COZAAR) 100 mg tablet Take 1 tablet by mouth once daily. Normal [facility] CNOVon 03-13-2024 [facility] Office Visit (GENSWS ) MICHAEL MEIER ([id number]) 1940 F Date Time Provider Department 03/13/24 2:30 PM [facility] During your visit today, we recorded the following information about you: Temperature Pulse Blood pressure Weight 97.5 degrees 71/minute 184/75 105 kg Height 1.651 m Sharon Jarrett APRN.CNP 03/13/2024 2:47 PM Signed HISTORY AND PHYSICAL Michael Meier : 1940 REFERRING PHYSICIAN: Michael Puga [address] [facility] [id number] CHIEF COMPLAINT: Patient presents with: Consult: EGD consultation, epigastric abdominal pain. HPI: Michael is a 83 year old female referred for endoscopy. Michael notes increasing in epigastric pain. Michael notes occasional heartburn. -Notes belching even without eating Epigastric pain triggered by coffee, lettuce, broccoli, tomato based, citrus fruits -gets relief with Carafate PRN -not currently on PPI Michael denies dysphagia. Michael denies a history of ulcers/ peptic ulcer disease. Michael denies family history of gastric issues. Michael follows with [facility]. Last OV 02/2024- she has had an increased in SOB with exertion. Updated ECHO with EF of 60%. Pulmonary artery systolic pressure 66 mmHg. 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 Also hx of A. Fib. Exertional SOB- states it has become worse after having pneumonia with hospitalization in October. Requested wheelchair for use with long distances but was denied. Referred today after walking into the office she needed to use Albuterol inhaler. Michael has undergone prior endoscopy. Last EGD was 01/[address] De León at [facility] Sedation:Midazolam 4 mg IV, Fentanyl 100 micrograms IV, Benzocaine spray, Ondansetron 4 mg IV Impression: - Z-line regular, 34 cm from the incisors. Biopsied. - Gastritis. Biopsied. - Normal examined duodenum. No specimens collected. FINAL DIAGNOSIS A. Stomach, antrum, biopsy: - Antral type gastric mucosa with changes of mild inactive chronic gastritis. - An H. pylori immunohistochemical stain will be performed and reported as an addendum. B. Esophagus, distal, biopsy: - Squamous mucosa with no diagnostic abnormalities. - No prominence in eosinophils or lymphocytes and no intestinal metaplasia. Current Outpatient Medications Medication Sig cyanocobalamin (VITAMIN B-12) 1,000 mcg tab Take 1,000 mcg by mouth once daily. spironolactone (ALDACTONE) 25 mg tablet Take 25 mg by mouth once daily. hydrALAZINE (APRESOLINE) 25 mg tablet Take 25 mg by mouth once daily. albuterol HFA (PROVENTIL HFA, VENTOLIN HFA) 90 mcg/actuation inhaler Inhale 2 Puffs as instructed every 4 hours as needed. LORazepam (ATIVAN) 0.5 mg Take 1 tablet by mouth two times a day as needed (anxiety attack). meloxicam (MOBIC) 15 mg tablet Take 1 tablet by mouth once daily. Take with food. fluticasone (FLOVENT) 110 mcg/actuation inhaler Inhale 1 Puff as instructed two times a day. Shake well before use. Rinse mouth after use. levothyroxine (SYNTHROID) 50 mcg tablet Take 1 tablet by mouth daily before breakfast. In the morning, Take on empty stomach at least 30 min before eating. For thyroid. PARoxetine (PAXIL) 20 mg tablet Take 1 tablet by mouth once daily. In the evening guaiFENesin (MUCINEX) 600 mg 12 hr tablet Take 1 tablet by mouth two times a day as needed for cold/allergy symptoms. RESTASIS 0.05 % ophthalmic emulsion Azelastine HCl (OPTIVAR) 0.05 % ophthalmic solution sucralfate (CARAFATE) 100 mg/mL suspension Take 10 mL by mouth four times daily. aspirin, enteric coated (ASPIRIN, ENTERIC COATED) 81 mg EC tablet Take 81 mg by mouth once daily. PACERONE 200 mg tablet Take 200 mg by mouth once daily. ubidecarenone (COQ-10 ORAL) Take by mouth. diltiazem CD (CARDIZEM CD) 240 mg 24 hr capsule Take 1 capsule by mouth once daily. losartan (COZAAR) 100 mg tablet Take 1 tablet by mouth once daily. rosuvastatin (CRESTOR) 10 mg tablet Take 1 tablet by mouth daily at bedtime. No current facility-administered medications for this visit. ALLERGIES: Ciprofloxacin, Demerol [Meperidine (Pf)], Opioids - Morphine Analogues, Opioids-Meperidine And Related, Penicillin G, Pravachol [Pravastatin Sodium], Sulfa (Sulfonamide Antibiotics), Vicodin [Hydrocodone-Acetaminophen], and Zithromax [Azithromycin] PAST MEDICAL HISTORY Diagnosis Date A-fib (HCC) Allergic rhinitis, cause unspecified Arrhythmia Arthritis Greater trochanteric bursitis of left hip Melanoma of skin, site unspecified 2004 back Osteoarthritis of left hip Other and unspecified hyperlipidemia Pulmonary hypertension (HCC) Situational mixed anxiety and depressive disorder Sleep apnea Stroke (HCC) Unspecified essential hypertension Unspecified gastritis and gastroduodenitis PAST SURGICAL HISTORY Procedure Laterality Date ABDOMINAL SURGERY HX APPENDECTO (more content not included)... Normal [facility] Priscila 03-13-2024 [facility] Telephone [facility]) MICHAEL MEIER ([id number]) 1940 F Date Time Provider Department 03/13/24 RAYMUNDO DE LEÓN During your visit today, we recorded the following information about you: Joshua Mcdowell 03/13/2024 2:44 PM Signed 03-31-2024 EGD Elizabeth Joshua Mcdowell Allergies As of Date: 03/13/2024 Noted Allergy Reaction CIPROFLOXACIN 09/05/2018 2 - Rash DEMEROL (MEPERIDINE (PF)) 02/06/2011 11 - Vomiting OPIOIDS - MORPHINE ANALOGUES 03/17/2001 5 - Intolerance Comments: nausea, dizzy, sees things OPIOIDS-MEPERIDINE AND RELATED 02/17/2001 Comments: nausea/vomiting PENICILLIN G 02/17/2001 Comments: hives PRAVACHOL (PRAVASTATIN SODIUM) 03/09/2016 14 - Other: See Comments Comments: Leg cramps SULFA (SULFONAMIDE ANTIBIOTICS) 03/17/2001 Comments: hives VICODIN (HYDROCODONE-ACETAMINOPHE* 5 - Intolerance Comments: dizzy,nausea,vomiting,headac he ZITHROMAX (AZITHROMYCIN) 05/20/2017 5 - Intolerance Date Reviewed: 03/13/2024 Reviewed by: Portia Camarillo RN - Fully Assessed Reason for Visit: 03-31-2024 ALVARO hay [Other] Prescriptions as of 04/03/2024 - cyanocobalamin (VITAMIN B-12) 1,000 mcg tab Take 1,000 mcg by mouth once daily. - spironolactone (ALDACTONE) 25 mg tablet Take 25 mg by mouth once daily. - hydrALAZINE (APRESOLINE) 25 mg tablet Take 25 mg by mouth once daily. - albuterol HFA (PROVENTIL HFA, VENTOLIN HFA) 90 mcg/actuation inhaler Inhale 2 Puffs as instructed every 4 hours as needed. - LORazepam (ATIVAN) 0.5 mg Take 1 tablet by mouth two times a day as needed (anxiety attack). - meloxicam (MOBIC) 15 mg tablet Take 1 tablet by mouth once daily. Take with food. - fluticasone (FLOVENT) 110 mcg/actuation inhaler Inhale 1 Puff as instructed two times a day. Shake well before use. Rinse mouth after use. - levothyroxine (SYNTHROID) 50 mcg tablet Take 1 tablet by mouth daily before breakfast. In the morning, Take on empty stomach at least 30 min before eating. For thyroid. - PARoxetine (PAXIL) 20 mg tablet Take 1 tablet by mouth once daily. In the evening - rosuvastatin (CRESTOR) 10 mg tablet Take 1 tablet by mouth daily at bedtime. - guaiFENesin (MUCINEX) 600 mg 12 hr tablet Take 1 tablet by mouth two times a day as needed for cold/allergy symptoms. - RESTASIS 0.05 % ophthalmic emulsion - Azelastine HCl (OPTIVAR) 0.05 % ophthalmic solution - sucralfate (CARAFATE) 100 mg/mL suspension Take 10 mL by mouth four times daily. - aspirin, enteric coated (ASPIRIN, ENTERIC COATED) 81 mg EC tablet Take 81 mg by mouth once daily. - PACERONE 200 mg tablet Take 200 mg by mouth once daily. - ubidecarenone (COQ-10 ORAL) Take by mouth. - diltiazem CD (CARDIZEM CD) 240 mg 24 hr capsule Take 1 capsule by mouth once daily. - losartan (COZAAR) 100 mg tablet Take 1 tablet by mouth once daily. Problem List As Of Date 03/13/2024 Noted Resolved MALIG MELANOMA TRUNK [C43.59] 02/17/2001 Melanoma of skin, site unspecified [C43.9] 01/09/2012 ALLERGIC RHINITIS NOS [J30.9] Other and unspecified hyperlipidemia [E78.5] 03/11/2015 Primary hypertension [I10] Unspecified gastritis and gastroduodenitis [535* 03/11/2015 Actinic keratosis [L57.0] 01/20/2007 03/11/2015 Other chronic dermatitis due to solar radiation*01/20/2007 01/09/2012 Scar condition and fibrosis of skin [L90.5] 01/20/2007 03/11/2015 SOLAR LENGINES///DYSCHROMIA OTHER [L81.9] 01/20/2007 01/09/2012 Other seborrheic keratosis [L82.1] 01/20/2007 01/09/2012 NEVUS///BENIGN COLIN SKIN TRUNK [D23.5] 01/20/2007 01/09/2012 NEVI///BENIGN COLIN SKIN FACE NEC [D23.30] 01/20/2007 01/09/2012 SEBACEOUS HYPERPLASIA///SEBACEOUS GLAND DIS NOS*01/20/2007 01/09/2012 DYSMETABOLIC SYNDROME X [E88.810] 07/12/2007 A-fib (HCC) [I48.91] 10/08/2010 03/11/2015 Personal history of malignant melanoma of skin *02/08/2011 Actinic skin damage [L57.8] 01/09/2012 03/11/2015 Solar Lentigines [L81.4] 01/09/2012 03/11/2015 Surgical Scars [L90.5] 01/09/2012 03/11/2015 Irriated//Inflamed Seborrheic Keratoses [L82.0] 12/01/2013 03/11/2015 Other Seborrheic Keratoses [L82.1] 12/01/2013 03/11/2015 Xerosis cutis [L85.3] 12/01/2013 03/11/2015 Cutaneous skin tags [L91.8] 12/01/2013 03/11/2015 Hyperlipidemia [E78.5] 03/11/2015 08/16/2015 Paroxysmal atrial fibrillation (HCC) [I48.0] 03/11/2015 BMI 37.0-37.9, adult [Z68.37] 03/11/2015 08/16/2015 BMI 38.0-38.9,adult [Z68.38] 08/16/2015 Daytime somnolence [R40.0] 08/16/2015 Hyperlipidemia [E78.5] 10/25/2015 JOSE on CPAP [G47.33] 03/09/2016 Anxiety [F41.9] 11/10/2016 Elevated fasting blood sugar [R73.01] 11/10/2016 Mixed stress and urge urinary incontinence [N39*11/10/2016 Obesity, Class II, BMI 35-39.9 [E66.812] 11/10/2016 Cardiac resynchronization therapy pacemaker (CR*02/26/2011 IFG (impaired fasting glucose) [R73.01] 03/07/2018 Obesity, Class I, BMI 30-34.9 [E66.811] 03/07/2018 (more content not included)... Normal [facility] [place] Priscila 03-08-2024 CNPN Telephone (FAMPWS) MICHAEL MEIER ([id number]) 1940 F Date Time Provider Department 03/08/24 MICHAEL PUGAWS During your visit today, we recorded the following information about you: Mary Lopez LPN 03/08/2024 10:13 AM Signed Patient does not meet Medicare Guidelines to have the Wheelchair covered by insurance. States that patient needs to require a wheelchair for most of her daily needs. According to OV note they received it does not appear that she does. Please advise. Michael Puga DO 03/08/2024 9:36 PM Signed Please inform patient DO Hossein Dow Barbara, RN 03/09/2024 3:14 PM Signed Called pt and notified. Allergies As of Date: 03/08/2024 Noted Allergy Reaction CIPROFLOXACIN 09/05/2018 2 - Rash DEMEROL (MEPERIDINE (PF)) 02/06/2011 11 - Vomiting OPIOIDS - MORPHINE ANALOGUES 03/17/2001 5 - Intolerance Comments: nausea, dizzy, sees things OPIOIDS-MEPERIDINE AND RELATED 02/17/2001 Comments: nausea/vomiting PENICILLIN G 02/17/2001 Comments: hives PRAVACHOL (PRAVASTATIN SODIUM) 03/09/2016 14 - Other: See Comments Comments: Leg cramps SULFA (SULFONAMIDE ANTIBIOTICS) 03/17/2001 Comments: hives VICODIN (HYDROCODONE-ACETAMINOPHE* 5 - Intolerance Comments: dizzy,nausea,vomiting,headac he ZITHROMAX (AZITHROMYCIN) 05/20/2017 5 - Intolerance Date Reviewed: 03/01/2024 Reviewed by: Julianna Cano LPN - Fully Assessed Reason for Visit: Wheelchair order [Other] Prescriptions as of 03/09/2024 - spironolactone (ALDACTONE) 25 mg tablet Take 25 mg by mouth once daily. - hydrALAZINE (APRESOLINE) 25 mg tablet Take 25 mg by mouth once daily. - albuterol HFA (PROVENTIL HFA, VENTOLIN HFA) 90 mcg/actuation inhaler Inhale 2 Puffs as instructed every 4 hours as needed. - LORazepam (ATIVAN) 0.5 mg Take 1 tablet by mouth two times a day as needed (anxiety attack). - meloxicam (MOBIC) 15 mg tablet Take 1 tablet by mouth once daily. Take with food. - fluticasone (FLOVENT) 110 mcg/actuation inhaler Inhale 1 Puff as instructed two times a day. Shake well before use. Rinse mouth after use. - levothyroxine (SYNTHROID) 50 mcg tablet Take 1 tablet by mouth daily before breakfast. In the morning, Take on empty stomach at least 30 min before eating. For thyroid. - PARoxetine (PAXIL) 20 mg tablet Take 1 tablet by mouth once daily. In the evening - rosuvastatin (CRESTOR) 10 mg tablet Take 1 tablet by mouth daily at bedtime. - guaiFENesin (MUCINEX) 600 mg 12 hr tablet Take 1 tablet by mouth two times a day as needed for cold/allergy symptoms. - vitamin B complex (B COMPLEX 1 ORAL) Take by mouth. - RESTASIS 0.05 % ophthalmic emulsion - Azelastine HCl (OPTIVAR) 0.05 % ophthalmic solution - hydroCHLOROthiazide (HYDRODIURIL, ESIDRIX) 12.5 mg capsule Take 2 capsules by mouth once daily. - sucralfate (CARAFATE) 100 mg/mL suspension Take 10 mL by mouth four times daily. - Cholecalciferol, Vitamin D3, 50 mcg (2,000 unit) cap Take 1 capsule by mouth once daily. - aspirin, enteric coated (ASPIRIN, ENTERIC COATED) 81 mg EC tablet Take 81 mg by mouth once daily. - PACERONE 200 mg tablet Take 200 mg by mouth once daily. - ubidecarenone (COQ-10 ORAL) Take by mouth. - diltiazem CD (CARDIZEM CD) 240 mg 24 hr capsule Take 1 capsule by mouth once daily. - losartan (COZAAR) 100 mg tablet Take 1 tablet by mouth once daily. Problem List As Of Date 03/08/2024 Noted Resolved MALIG MELANOMA TRUNK [C43.59] 02/17/2001 Melanoma of skin, site unspecified [C43.9] 01/09/2012 ALLERGIC RHINITIS NOS [J30.9] Other and unspecified hyperlipidemia [E78.5] 03/11/2015 Primary hypertension [I10] Unspecified gastritis and gastroduodenitis [535* 03/11/2015 Actinic keratosis [L57.0] 01/20/2007 03/11/2015 Other chronic dermatitis due to solar radiation*01/20/2007 01/09/2012 Scar condition and fibrosis of skin [L90.5] 01/20/2007 03/11/2015 SOLAR LENGINES///DYSCHROMIA OTHER [L81.9] 01/20/2007 01/09/2012 Other seborrheic keratosis [L82.1] 01/20/2007 01/09/2012 NEVUS///BENIGN COLIN SKIN TRUNK [D23.5] 01/20/2007 01/09/2012 NEVI///BENIGN COLIN SKIN FACE NEC [D23.30] 01/20/2007 01/09/2012 SEBACEOUS HYPERPLASIA///SEBACEOUS GLAND DIS NOS*01/20/2007 01/09/2012 DYSMETABOLIC SYNDROME X [E88.810] 07/12/2007 A-fib (HCC) [I48.91] 10/08/2010 03/11/2015 Personal history of malignant melanoma of skin *02/08/2011 Actinic skin damage [L57.8] 01/09/2012 03/11/2015 Solar Lentigines [L81.4] 01/09/2012 03/11/2015 Surgical Scars [L90.5] 01/09/2012 03/11/2015 Irriated//Inflamed Seborrheic Keratoses [L82.0] 12/01/2013 03/11/2015 Other Seborrheic Keratoses [L82.1] 12/01/2013 03/11/2015 Xerosis cutis [L85.3] 12/01/2013 03/11/2015 Cutaneous skin tags [L91.8] 12/01/2013 03/11/2015 Hyperlipidemia [E78.5] 03/11/2015 08/16/2015 Paroxysmal atrial fibrillation (HCC) [I48.0] 03/11/2015 B (more content not included)... Normal [facility] [place] CNTHERAPYon 03-02-2024 CNTHERAPY OT/PT/Speech Visit ( LDPT) BRADENMICHAEL DAVIES ([id number]) 1940 F Date Time Provider Department 03/02/24 12:45 PM SARAH MERCHANT Date Time Provider Department Center 03/02/2024 12:45 PM [id number] MERCHANT [facility] Reason for Visit: Physical Therapy [503] Primary Visit Diagnosis:Difficulty walking [R26.2] Other Visit Diagnoses:Imbalance [R26.89] Weakness [R53.1] Allergies As of Date: 03/02/2024 Noted Allergy Reaction CIPROFLOXACIN 09/05/2018 2 - Rash DEMEROL (MEPERIDINE (PF)) 02/06/2011 11 - Vomiting OPIOIDS - MORPHINE ANALOGUES 03/17/2001 5 - Intolerance Comments: nausea, dizzy, sees things OPIOIDS-MEPERIDINE AND RELATED 02/17/2001 Comments: nausea/vomiting PENICILLIN G 02/17/2001 Comments: hives PRAVACHOL (PRAVASTATIN SODIUM) 03/09/2016 14 - Other: See Comments Comments: Leg cramps SULFA (SULFONAMIDE ANTIBIOTICS) 03/17/2001 Comments: hives VICODIN (HYDROCODONE-ACETAMINOPHE* 5 - Intolerance Comments: dizzy,nausea,vomiting,headac he ZITHROMAX (AZITHROMYCIN) 05/20/2017 5 - Intolerance Date Reviewed: 03/01/2024 Reviewed by: Julianna Cano LPN - Fully Assessed Prescriptions as of 03/02/2024 - spironolactone (ALDACTONE) 25 mg tablet Take 25 mg by mouth once daily. - hydrALAZINE (APRESOLINE) 25 mg tablet Take 25 mg by mouth once daily. - albuterol HFA (PROVENTIL HFA, VENTOLIN HFA) 90 mcg/actuation inhaler Inhale 2 Puffs as instructed every 4 hours as needed. - LORazepam (ATIVAN) 0.5 mg Take 1 tablet by mouth two times a day as needed (anxiety attack). - meloxicam (MOBIC) 15 mg tablet Take 1 tablet by mouth once daily. Take with food. - fluticasone (FLOVENT) 110 mcg/actuation inhaler Inhale 1 Puff as instructed two times a day. Shake well before use. Rinse mouth after use. - levothyroxine (SYNTHROID) 50 mcg tablet Take 1 tablet by mouth daily before breakfast. In the morning, Take on empty stomach at least 30 min before eating. For thyroid. - PARoxetine (PAXIL) 20 mg tablet Take 1 tablet by mouth once daily. In the evening - rosuvastatin (CRESTOR) 10 mg tablet Take 1 tablet by mouth daily at bedtime. - guaiFENesin (MUCINEX) 600 mg 12 hr tablet Take 1 tablet by mouth two times a day as needed for cold/allergy symptoms. - vitamin B complex (B COMPLEX 1 ORAL) Take by mouth. - RESTASIS 0.05 % ophthalmic emulsion - Azelastine HCl (OPTIVAR) 0.05 % ophthalmic solution - hydroCHLOROthiazide (HYDRODIURIL, ESIDRIX) 12.5 mg capsule Take 2 capsules by mouth once daily. - sucralfate (CARAFATE) 100 mg/mL suspension Take 10 mL by mouth four times daily. - Cholecalciferol, Vitamin D3, 50 mcg (2,000 unit) cap Take 1 capsule by mouth once daily. - aspirin, enteric coated (ASPIRIN, ENTERIC COATED) 81 mg EC tablet Take 81 mg by mouth once daily. - PACERONE 200 mg tablet Take 200 mg by mouth once daily. - ubidecarenone (COQ-10 ORAL) Take by mouth. - diltiazem CD (CARDIZEM CD) 240 mg 24 hr capsule Take 1 capsule by mouth once daily. - losartan (COZAAR) 100 mg tablet Take 1 tablet by mouth once daily. Normal [facility] CNOVon 03-01-2024 [facility] Office Visit (FAMPWS ) MICHAEL MEIER ([id number]) 1940 F Date Time Provider Department 03/01/24 5:40 PM MICHAEL PUGAPSHELL During your visit today, we recorded the following information about you: Temperature Pulse Respiration Blood pressure 97.1 degrees 64/minute 20/minute 144/80 Weight 101.2 kg Michael Puga, DO 03/01/2024 10:37 PM Signed CC: Michael Meier is a 83 year old female who presents to the office for follow up HPI: Seen in office last in October , at that time Recently had URI end of August, she was Diagnosed with pneumonia and treated with IV antibiotics and breathing treatments and oxygen x 3 weeks into end of October. Recently she has started with another cough and chest congestion and feeling fatigued and worn out. She admits that prior to these infections starting, she hadn't been taking any of her vitamins or supplements at all. No fevers or chills. No vomiting or diarrhea. Had been taking some tylenol and mucinex only Hypothyroidism, hasn't been taking her levothyroxine medication but willing to restart this. She states I didn't think it was helping me at all so I stopped it. Currently Hypothyroidism, she has restarted the levothyroxine, does help fatigue symptoms. TSH was stable and improved at 1.6 with recent lab check at [employer] office in Jan at [facility], she is using her Bipap each night and feels that this has helped her fatigue and hypersomnolence during the day. Weakness, gait changes. Chronic low back pain, she has been to PHYSICAL THERAPY, she has been seen by pain mgmt. She wants to try to avoid having to go get injections in her spine again. She does feel that she needs a wheelchair though sometimes since if she has to stand or walk for a while she feels generalized lower leg and thigh weakness like I could fall. Otherwise she does use her cane. Chronic dyspnea, has been fully evaluated by [employer] whom doesn't feel this is due to cardiac cause, feels it is due to her COPD. She is willing to try a controller medication/inhaler, gets some temporary relief with albuterol PAST MEDICAL HISTORY Diagnosis Date A-fib (HCC) Allergic rhinitis, cause unspecified Arrhythmia Arthritis Greater trochanteric bursitis of left hip Melanoma of skin, site unspecified 2004 back Osteoarthritis of left hip Other and unspecified hyperlipidemia Situational mixed anxiety and depressive disorder Sleep apnea Stroke (HCC) Unspecified essential hypertension Unspecified gastritis and gastroduodenitis PAST SURGICAL HISTORY Procedure Laterality Date ABDOMINAL SURGERY HX APPENDECTOMY HX ARTHRP ACETBLR/PROX FEM PROSTC AGRFT/ALGRFT 12/09/2003 right hip, redone, 07/2004 ARTHRP ACETBLR/PROX FEM PROSTC AGRFT/ALGRFT Left 07/2016 ARTHRP KNE CONDYLEANDPLATU MEDIALANDLAT COMPARTMENTS 11/15/2009 Knee replacement, total -Left - [facility] ARTHRP KNE CONDYLEANDPLATU MEDIALANDLAT COMPARTMENTS 12/30/2009 Right knee replaced COLONOSCOPY FLX DX W/COLLJ SPEC WHEN PFRMD 06/29/2017 Colonoscopy EGD 10/17/2020 EGD W/O [facility] SPEC VARICIES INJ 01/08/2022 ESOPHAGOGASTRODUODENOSCOPY TRANSORAL DIAGNOSTIC 11/29/2000 EGD ESOPHAGOGASTRODUODENOSCOPY TRANSORAL DIAGNOSTIC 06/29/2017 EGD JOINT REPLACEMENT HX LAPS SURG CHOLECYSTECTOMY W/CHOLANGIOGRAPHY PACEMAKER IMPLANT 01/2011 SKIN BIOPSY HX TONSILLECTOMY HX TOTAL ABDOMINAL HYSTERECT W/WO RMVL TUBE OVARY Hysterectomy, GAL Current Outpatient Medications Medication Sig spironolactone (ALDACTONE) 25 mg tablet Take 25 mg by mouth once daily. hydrALAZINE (APRESOLINE) 25 mg tablet Take 25 mg by mouth once daily. albuterol HFA (PROVENTIL HFA, VENTOLIN HFA) 90 mcg/actuation inhaler Inhale 2 Puffs as instructed every 4 hours as needed. LORazepam (ATIVAN) 0.5 mg Take 1 tablet by mouth two times a day as needed (anxiety attack). meloxicam (MOBIC) 15 mg tablet Take 1 tablet by mouth once daily. Take with food. fluticasone (FLOVENT) 110 mcg/actuation inhaler Inhale 1 Puff as instructed two times a day. Shake well before use. Rinse mouth after use. levothyroxine (SYNTHROID) 50 mcg tablet Take 1 tablet by mouth daily before breakfast. In the morning, Take on empty stomach at least 30 min before eating. For thyroid. PARoxetine (PAXIL) 20 mg tablet Take 1 tablet by mouth once daily. In the evening rosuvastatin (CRESTOR) 10 mg tablet Take 1 tablet by mouth daily at bedtime. guaiFENesin (MUCINEX) 600 mg 12 hr tablet Take 1 tablet by mouth two times a day as needed for cold/allergy symptoms. vitamin B complex (B COMPLEX 1 ORAL) Take by mouth. (Patient not taking: Reported on 10/14/2023) RESTASIS 0.05 % ophthalmic emulsion Azelastine HCl (OPTIVAR) 0.05 % ophthalmic solution hydroCHLOROthiazide (HYDRODIURIL, ESIDRIX) 12.5 mg capsule Take 2 capsules by mouth once daily. sucralfa (more content not included)... Normal [facility]HAEL [facility]IER ([id number]) 1940 F Date Time Provider Department 03/01/24 [facility] During your visit today, we recorded the following information about you: Michael Puga DO 03/01/2024 10:51 PM Signed Fax my office note from today and standard wheelchair [facility] and then notify her DO Brigette Dow [place], [place] 03/02/2024 1:33 PM Addendum Faxed to in [facility]. Left message to return call. Please notify patient. ALEX Arenas Stephanie, RN 03/02/2024 1:47 PM Signed Patient calls and notified of below. Voices understanding. Bhavna Arauz RN Allergies As of Date: 03/01/2024 Noted Allergy Reaction CIPROFLOXACIN 09/05/2018 2 - Rash DEMEROL (MEPERIDINE (PF)) 02/06/2011 11 - Vomiting OPIOIDS - MORPHINE ANALOGUES 03/17/2001 5 - Intolerance Comments: nausea, dizzy, sees things OPIOIDS-MEPERIDINE AND RELATED 02/17/2001 Comments: nausea/vomiting PENICILLIN G 02/17/2001 Comments: imani PRAVACHOL (PRAVASTATIN SODIUM) 03/09/2016 14 - Other: See Comments Comments: Leg cramps SULFA (SULFONAMIDE ANTIBIOTICS) 03/17/2001 Comments: hivmyranda VICODIN (HYDROCODONE-ACETAMINOPHE* 5 - Intolerance Comments: dizzy,nausea,vomiting,headac he ZITHROMAX (AZITHROMYCIN) 05/20/2017 5 - Intolerance Date Reviewed: 03/01/2024 Reviewed by: Julianna Cano LPN - Fully Assessed Reason for Visit: Orders [681] Prescriptions as of 03/02/2024 - spironolactone (ALDACTONE) 25 mg tablet Take 25 mg by mouth once daily. - hydrALAZINE (APRESOLINE) 25 mg tablet Take 25 mg by mouth once daily. - albuterol HFA (PROVENTIL HFA, VENTOLIN HFA) 90 mcg/actuation inhaler Inhale 2 Puffs as instructed every 4 hours as needed. - LORazepam (ATIVAN) 0.5 mg Take 1 tablet by mouth two times a day as needed (anxiety attack). - meloxicam (MOBIC) 15 mg tablet Take 1 tablet by mouth once daily. Take with food. - fluticasone (FLOVENT) 110 mcg/actuation inhaler Inhale 1 Puff as instructed two times a day. Shake well before use. Rinse mouth after use. - levothyroxine (SYNTHROID) 50 mcg tablet Take 1 tablet by mouth daily before breakfast. In the morning, Take on empty stomach at least 30 min before eating. For thyroid. - PARoxetine (PAXIL) 20 mg tablet Take 1 tablet by mouth once daily. In the evening - rosuvastatin (CRESTOR) 10 mg tablet Take 1 tablet by mouth daily at bedtime. - guaiFENesin (MUCINEX) 600 mg 12 hr tablet Take 1 tablet by mouth two times a day as needed for cold/allergy symptoms. - vitamin B complex (B COMPLEX 1 ORAL) Take by mouth. - RESTASIS 0.05 % ophthalmic emulsion - Azelastine HCl (OPTIVAR) 0.05 % ophthalmic solution - hydroCHLOROthiazide (HYDRODIURIL, ESIDRIX) 12.5 mg capsule Take 2 capsules by mouth once daily. - sucralfate (CARAFATE) 100 mg/mL suspension Take 10 mL by mouth four times daily. - Cholecalciferol, Vitamin D3, 50 mcg (2,000 unit) cap Take 1 capsule by mouth once daily. - aspirin, enteric coated (ASPIRIN, ENTERIC COATED) 81 mg EC tablet Take 81 mg by mouth once daily. - PACERONE 200 mg tablet Take 200 mg by mouth once daily. - ubidecarenone (COQ-10 ORAL) Take by mouth. - diltiazem CD (CARDIZEM CD) 240 mg 24 hr capsule Take 1 capsule by mouth once daily. - losartan (COZAAR) 100 mg tablet Take 1 tablet by mouth once daily. Problem List As Of Date 03/01/2024 Noted Resolved MALIG MELANOMA TRUNK [C43.59] 02/17/2001 Melanoma of skin, site unspecified [C43.9] 01/09/2012 ALLERGIC RHINITIS NOS [J30.9] Other and unspecified hyperlipidemia [E78.5] 03/11/2015 Primary hypertension [I10] Unspecified gastritis and gastroduodenitis [535* 03/11/2015 Actinic keratosis [L57.0] 01/20/2007 03/11/2015 Other chronic dermatitis due to solar radiation*01/20/2007 01/09/2012 Scar condition and fibrosis of skin [L90.5] 01/20/2007 03/11/2015 SOLAR LENGINES///DYSCHROMIA OTHER [L81.9] 01/20/2007 01/09/2012 Other seborrheic keratosis [L82.1] 01/20/2007 01/09/2012 NEVUS///BENIGN COLIN SKIN TRUNK [D23.5] 01/20/2007 01/09/2012 NEVI///BENIGN COLIN SKIN FACE NEC [D23.30] 01/20/2007 01/09/2012 SEBACEOUS HYPERPLASIA///SEBACEOUS GLAND DIS NOS*01/20/2007 01/09/2012 DYSMETABOLIC SYNDROME X [E88.810] 07/12/2007 A-fib (HCC) [I48.91] 10/08/2010 03/11/2015 Personal history of malignant melanoma of skin *02/08/2011 Actinic skin damage [L57.8] 01/09/2012 03/11/2015 Solar Lentigines [L81.4] 01/09/2012 03/11/2015 Surgical Scars [L90.5] 01/09/2012 03/11/2015 Irriated//Inflamed Seborrheic Keratoses [L82.0] 12/01/2013 03/11/2015 Other Seborrheic Keratoses [L82.1] 12/01/2013 03/11/2015 Xerosis cutis [L85.3] 12/01/2013 03/11/2015 Cutaneous skin tags [L91.8] 12/01/2013 03/11/2015 Hyperlipidemia [E78.5] 03/11/2015 08/16/2015 Paroxysmal atrial fibrillation (HCC) [I48.0] 03/11/2015 BMI 37.0- (more content not included)... Normal [facility] CNTHERAPYon 02-17-2024 CNTHERAPY OT/PT/Speech Visit ( LDPT) MICHAEL MEIER ([id number]) 1940 F Date Time Provider Department 02/17/24 3:45 PM SARAH MERCHANT LDPT Date Time Provider Department [place] 02/17/2024 3:45 PM [id number], CARLA LDPT [facility] Reason for Visit: PT Progress Note [1596] Primary Visit Diagnosis:Difficulty walking [R26.2] Other Visit Diagnoses:Imbalance [R26.89] Weakness [R53.1] Allergies As of Date: 02/17/2024 Noted Allergy Reaction CIPROFLOXACIN 09/05/2018 2 - Rash DEMEROL (MEPERIDINE (PF)) 02/06/2011 11 - Vomiting OPIOIDS - MORPHINE ANALOGUES 03/17/2001 5 - Intolerance Comments: nausea, dizzy, sees things OPIOIDS-MEPERIDINE AND RELATED 02/17/2001 Comments: nausea/vomiting PENICILLIN G 02/17/2001 Comments: hives PRAVACHOL (PRAVASTATIN SODIUM) 03/09/2016 14 - Other: See Comments Comments: Leg cramps SULFA (SULFONAMIDE ANTIBIOTICS) 03/17/2001 Comments: hives VICODIN (HYDROCODONE-ACETAMINOPHE* 5 - Intolerance Comments: dizzy,nausea,vomiting,headac he ZITHROMAX (AZITHROMYCIN) 05/20/2017 5 - Intolerance Date Reviewed: 12/01/2023 Reviewed by: Julianna Cano LPN - Fully Assessed Prescriptions as of 02/17/2024 - levothyroxine (SYNTHROID) 50 mcg tablet Take 1 tablet by mouth daily before breakfast. In the morning, Take on empty stomach at least 30 min before eating. For thyroid. - PARoxetine (PAXIL) 20 mg tablet Take 1 tablet by mouth once daily. In the evening - LORazepam (ATIVAN) 0.5 mg Take 1 tablet by mouth two times a day as needed (anxiety attack). - rosuvastatin (CRESTOR) 10 mg tablet Take 1 tablet by mouth daily at bedtime. - guaiFENesin (MUCINEX) 600 mg 12 hr tablet Take 1 tablet by mouth two times a day as needed for cold/allergy symptoms. - vitamin B complex (B COMPLEX 1 ORAL) Take by mouth. - RESTASIS 0.05 % ophthalmic emulsion - Azelastine HCl (OPTIVAR) 0.05 % ophthalmic solution - albuterol HFA (PROVENTIL HFA, VENTOLIN HFA) 90 mcg/actuation inhaler Inhale 2 Puffs as instructed every 4 hours as needed. - hydroCHLOROthiazide (HYDRODIURIL, ESIDRIX) 12.5 mg capsule Take 2 capsules by mouth once daily. - sucralfate (CARAFATE) 100 mg/mL suspension Take 10 mL by mouth four times daily. - Cholecalciferol, Vitamin D3, 50 mcg (2,000 unit) cap Take 1 capsule by mouth once daily. - aspirin, enteric coated (ASPIRIN, ENTERIC COATED) 81 mg EC tablet Take 81 mg by mouth once daily. - PACERONE 200 mg tablet Take 200 mg by mouth once daily. - ubidecarenone (COQ-10 ORAL) Take by mouth. - diltiazem CD (CARDIZEM CD) 240 mg 24 hr capsule Take 1 capsule by mouth once daily. - losartan (COZAAR) 100 mg tablet Take 1 tablet by mouth once daily. Normal [facility] CNTHERAPYon 02-14-2024 CNTHERAPY OT/PT/Speech Visit ( LDPT) HARDEEPMICHAEL Augusta ([id number]) 1940 F Date Time Provider Department 02/14/24 1:30 PM WILFRED MCCLELLAN LDFRANTZ Date Time Provider Department Center 02/14/2024 1:30 PM [id number], PATRICK LDFRANTZ [facility] Reason for Visit: Physical Therapy [503] Primary Visit Diagnosis:Weakness [R53.1] Other Visit Diagnosis:Imbalance [R26.89] Allergies As of Date: 02/14/2024 Noted Allergy Reaction CIPROFLOXACIN 09/05/2018 2 - Rash DEMEROL (MEPERIDINE (PF)) 02/06/2011 11 - Vomiting OPIOIDS - MORPHINE ANALOGUES 03/17/2001 5 - Intolerance Comments: nausea, dizzy, sees things OPIOIDS-MEPERIDINE AND RELATED 02/17/2001 Comments: nausea/vomiting PENICILLIN G 02/17/2001 Comments: imani PRAVACHOL (PRAVASTATIN SODIUM) 03/09/2016 14 - Other: See Comments Comments: Leg cramps SULFA (SULFONAMIDE ANTIBIOTICS) 03/17/2001 Comments: imani VICODIN (HYDROCODONE-ACETAMINOPHE* 5 - Intolerance Comments: dizzy,nausea,vomiting,headac he ZITHROMAX (AZITHROMYCIN) 05/20/2017 5 - Intolerance Date Reviewed: 12/01/2023 Reviewed by: Julianna Cano LPN - Fully Assessed Prescriptions as of 02/14/2024 - levothyroxine (SYNTHROID) 50 mcg tablet Take 1 tablet by mouth daily before breakfast. In the morning, Take on empty stomach at least 30 min before eating. For thyroid. - PARoxetine (PAXIL) 20 mg tablet Take 1 tablet by mouth once daily. In the evening - LORazepam (ATIVAN) 0.5 mg Take 1 tablet by mouth two times a day as needed (anxiety attack). - rosuvastatin (CRESTOR) 10 mg tablet Take 1 tablet by mouth daily at bedtime. - guaiFENesin (MUCINEX) 600 mg 12 hr tablet Take 1 tablet by mouth two times a day as needed for cold/allergy symptoms. - vitamin B complex (B COMPLEX 1 ORAL) Take by mouth. - RESTASIS 0.05 % ophthalmic emulsion - Azelastine HCl (OPTIVAR) 0.05 % ophthalmic solution - albuterol HFA (PROVENTIL HFA, VENTOLIN HFA) 90 mcg/actuation inhaler Inhale 2 Puffs as instructed every 4 hours as needed. - hydroCHLOROthiazide (HYDRODIURIL, ESIDRIX) 12.5 mg capsule Take 2 capsules by mouth once daily. - sucralfate (CARAFATE) 100 mg/mL suspension Take 10 mL by mouth four times daily. - Cholecalciferol, Vitamin D3, 50 mcg (2,000 unit) cap Take 1 capsule by mouth once daily. - aspirin, enteric coated (ASPIRIN, ENTERIC COATED) 81 mg EC tablet Take 81 mg by mouth once daily. - PACERONE 200 mg tablet Take 200 mg by mouth once daily. - ubidecarenone (COQ-10 ORAL) Take by mouth. - diltiazem CD (CARDIZEM CD) 240 mg 24 hr capsule Take 1 capsule by mouth once daily. - losartan (COZAAR) 100 mg tablet Take 1 tablet by mouth once daily. Normal [facility] CNTHERAPYon 02-10-2024 CNTHERAPY OT/PT/Speech Visit ( LDPT) MICHAEL MEIER ([id number]) 1940 F Date Time Provider Department 02/10/24 12:45 PM SARAH MERCHANT Date Time Provider Department Center 02/10/2024 12:45 PM [id number], CARLA LDPT [facility] Reason for Visit: Physical Therapy [503] Primary Visit Diagnosis:Weakness [R53.1] Other Visit Diagnoses:Imbalance [R26.89] Difficulty walking [R26.2] Allergies As of Date: 02/10/2024 Noted Allergy Reaction CIPROFLOXACIN 09/05/2018 2 - Rash DEMEROL (MEPERIDINE (PF)) 02/06/2011 11 - Vomiting OPIOIDS - MORPHINE ANALOGUES 03/17/2001 5 - Intolerance Comments: nausea, dizzy, sees things OPIOIDS-MEPERIDINE AND RELATED 02/17/2001 Comments: nausea/vomiting PENICILLIN G 02/17/2001 Comments: hamidaes PRAVACHOL (PRAVASTATIN SODIUM) 03/09/2016 14 - Other: See Comments Comments: Leg cramps SULFA (SULFONAMIDE ANTIBIOTICS) 03/17/2001 Comments: hives VICODIN (HYDROCODONE-ACETAMINOPHE* 5 - Intolerance Comments: dizzy,nausea,vomiting,headac he ZITHROMAX (AZITHROMYCIN) 05/20/2017 5 - Intolerance Date Reviewed: 12/01/2023 Reviewed by: Julianna Cano LPN - Fully Assessed Prescriptions as of 02/10/2024 - levothyroxine (SYNTHROID) 50 mcg tablet Take 1 tablet by mouth daily before breakfast. In the morning, Take on empty stomach at least 30 min before eating. For thyroid. - PARoxetine (PAXIL) 20 mg tablet Take 1 tablet by mouth once daily. In the evening - LORazepam (ATIVAN) 0.5 mg Take 1 tablet by mouth two times a day as needed (anxiety attack). - rosuvastatin (CRESTOR) 10 mg tablet Take 1 tablet by mouth daily at bedtime. - guaiFENesin (MUCINEX) 600 mg 12 hr tablet Take 1 tablet by mouth two times a day as needed for cold/allergy symptoms. - vitamin B complex (B COMPLEX 1 ORAL) Take by mouth. - RESTASIS 0.05 % ophthalmic emulsion - Azelastine HCl (OPTIVAR) 0.05 % ophthalmic solution - albuterol HFA (PROVENTIL HFA, VENTOLIN HFA) 90 mcg/actuation inhaler Inhale 2 Puffs as instructed every 4 hours as needed. - hydroCHLOROthiazide (HYDRODIURIL, ESIDRIX) 12.5 mg capsule Take 2 capsules by mouth once daily. - sucralfate (CARAFATE) 100 mg/mL suspension Take 10 mL by mouth four times daily. - Cholecalciferol, Vitamin D3, 50 mcg (2,000 unit) cap Take 1 capsule by mouth once daily. - aspirin, enteric coated (ASPIRIN, ENTERIC COATED) 81 mg EC tablet Take 81 mg by mouth once daily. - PACERONE 200 mg tablet Take 200 mg by mouth once daily. - ubidecarenone (COQ-10 ORAL) Take by mouth. - diltiazem CD (CARDIZEM CD) 240 mg 24 hr capsule Take 1 capsule by mouth once daily. - losartan (COZAAR) 100 mg tablet Take 1 tablet by mouth once daily. Normal [facility] CNTHERAPYon 02-07-2024 CNTHERAPY OT/PT/Speech Visit ( LDPT) MICHAEL MEIER ([id number]) 1940 F Date Time Provider Department 02/07/24 2:15 PM SARAH MERCHANT LDPT Date Time Provider Department Center 02/07/2024 2:15 PM [id number], CARLA LDPT [facility] Reason for Visit: Physical Therapy [503] Primary Visit Diagnosis:Weakness [R53.1] Other Visit Diagnoses:Imbalance [R26.89] Difficulty walking [R26.2] Allergies As of Date: 02/07/2024 Noted Allergy Reaction CIPROFLOXACIN 09/05/2018 2 - Rash DEMEROL (MEPERIDINE (PF)) 02/06/2011 11 - Vomiting OPIOIDS - MORPHINE ANALOGUES 03/17/2001 5 - Intolerance Comments: nausea, dizzy, sees things OPIOIDS-MEPERIDINE AND RELATED 02/17/2001 Comments: nausea/vomiting PENICILLIN G 02/17/2001 Comments: hives PRAVACHOL (PRAVASTATIN SODIUM) 03/09/2016 14 - Other: See Comments Comments: Leg cramps SULFA (SULFONAMIDE ANTIBIOTICS) 03/17/2001 Comments: hives VICODIN (HYDROCODONE-ACETAMINOPHE* 5 - Intolerance Comments: dizzy,nausea,vomiting,headac he ZITHROMAX (AZITHROMYCIN) 05/20/2017 5 - Intolerance Date Reviewed: 12/01/2023 Reviewed by: Julianna Cano LPN - Fully Assessed Prescriptions as of 02/07/2024 - levothyroxine (SYNTHROID) 50 mcg tablet Take 1 tablet by mouth daily before breakfast. In the morning, Take on empty stomach at least 30 min before eating. For thyroid. - PARoxetine (PAXIL) 20 mg tablet Take 1 tablet by mouth once daily. In the evening - LORazepam (ATIVAN) 0.5 mg Take 1 tablet by mouth two times a day as needed (anxiety attack). - rosuvastatin (CRESTOR) 10 mg tablet Take 1 tablet by mouth daily at bedtime. - guaiFENesin (MUCINEX) 600 mg 12 hr tablet Take 1 tablet by mouth two times a day as needed for cold/allergy symptoms. - vitamin B complex (B COMPLEX 1 ORAL) Take by mouth. - RESTASIS 0.05 % ophthalmic emulsion - Azelastine HCl (OPTIVAR) 0.05 % ophthalmic solution - albuterol HFA (PROVENTIL HFA, VENTOLIN HFA) 90 mcg/actuation inhaler Inhale 2 Puffs as instructed every 4 hours as needed. - hydroCHLOROthiazide (HYDRODIURIL, ESIDRIX) 12.5 mg capsule Take 2 capsules by mouth once daily. - sucralfate (CARAFATE) 100 mg/mL suspension Take 10 mL by mouth four times daily. - Cholecalciferol, Vitamin D3, 50 mcg (2,000 unit) cap Take 1 capsule by mouth once daily. - aspirin, enteric coated (ASPIRIN, ENTERIC COATED) 81 mg EC tablet Take 81 mg by mouth once daily. - PACERONE 200 mg tablet Take 200 mg by mouth once daily. - ubidecarenone (COQ-10 ORAL) Take by mouth. - diltiazem CD (CARDIZEM CD) 240 mg 24 hr capsule Take 1 capsule by mouth once daily. - losartan (COZAAR) 100 mg tablet Take 1 tablet by mouth once daily. Normal [facility] Echo Completeon 02-02-2024 Echo Complete [facility] [address] [place] [address] Echo Complete 02/02/24 1302 MR#: [id number] Acct: [id number] Name: MICHAEL MEIER Rep #: [id number] : 1940 83 From: Gallo Hickey MD Attending Dr: NIDA Katz Status: REG CLI Ordering Dr: Anabel Horne Date: 06/26 Location: CVS Sex: F C Admitted: Reason For Study: Afib/Flutter Procedure This was a 2D Doppler, Color Flow transthoracic echocardiogram. Exam performed in department. Left Ventricle Normal LV size. Left ventricular systolic function is normal. The left ventricular ejection fraction is 60 %. Stage 2 diastolic dysfunction. No regional wall motion abnormalities noted. Right Ventricle Normal RV size. ICD or pacer leads identified within the right ventricle. Normal systolic function. Atria The left atrium is moderately enlarged. Normal right atrium. Mitral Valve Normal mitral valve. Moderate (2+) eccentric mitral valve insufficiency. Tricuspid Valve Normal tricuspid valve. Moderate (2+) tricuspid valve insufficiency. Pulmonary artery systolic pressure is 66 mmHg. Moderate pulmonary hypertension. Aortic Valve Trisinus/trileaflet aortic valve. Pulmonic Valve Normal pulmonic valve. Great Vessels Normal aortic root. The pulmonary artery is normal size. Normal inferior vena cava. Pericardium/Pleural No pericardial effusion. MMode/2D Measurements Calculations LVIDd: 4.7 cm IVSd: 1.4 cm LAV(MOD-bp): 106.4 ml LVIDs: 3.2 cm LVPWd: 1.1 cm LAV(MOD-bp) Indexed: 50.2 ml/m2 RVDd: 4.4 cm FS: 32.7 % LAV(MOD-sp2): 92.8 ml LAV(MOD-sp4): 104.2 ml LA dimension(2D): 4.5 cm LA A4 area: 29.5 cm2 RA A4 area: 19.7 cm2 TAPSE: 2.5 cm Time Measurements MV dec time: 0.14 sec Doppler Measurements Calculations MV E max jeff: 87.8 cm/sec Lat Peak E' Jeff: 11.8 cm/sec Med Peak E' Jeff: 7.3 cm/sec MV A max jeff: 35.0 cm/sec E/E' lat: 7.4 E/E' med: 12.0 MV E/A: 2.5 MV V2 max: 131.6 cm/sec MV P1/2t max jeff: 133.7 cm/sec Ao V2 max: 130.1 cm/sec MV max P.9 mmHg MV P1/2t: 60.2 msec Ao max P.8 mmHg MV V2 mean: 47.2 cm/sec MV dec slope: 650.4 cm/sec2 Ao V2 mean: 90.2 cm/sec MV mean P.3 mmHg Ao mean P.7 mmHg MV V2 VTI: 31.0 cm MVA(P1/2t): 3.7 cm2 Ao V2 VTI: 31.9 cm AV (velocity ratio): 0.78 LV V1 max: 104.6 cm/sec MR max jeff: 585.4 cm/sec PA V2 max: 98.1 cm/sec LV V1 max P.4 mmHg MR max P.1 mmHg PA max PG (full): 1.2 mmHg LV V1 mean P.4 mmHg MR mean jeff: 459.8 cm/sec PA V2 mean: 69.9 cm/sec LV V1 mean: 70.9 cm/sec MR mean P.1 mmHg PA mean PG (full): 0.53 mmHg LV V1 VTI: 24.8 cm MR VTI: 202.2 cm PI dec slope: 375.6 cm/sec2 TR max jeff: 396.0 cm/sec TR max P.7 mmHg ECHO/Echo Complete Interpretation Summary Normal LV size. Left ventricular systolic function is normal. The left ventricular ejection fraction is 60 %. The left atrium is moderately enlarged. Stage 2 diastolic dysfunction. Moderate pulmonary hypertension. Ordering Physician: Anabel Horne Referring Physician: Anabel Horne Performed By: Roby Rouse RCS 02/02/24 8493 Date Gallo Hickey MD CC: Dr. Michael Puga DO; NIDA Katz Date Dictated: 02/02/24 1302 Date Transcribed: 02/02/24 229 Oracle Fusion Middleware Developer: Signed Normal [facility] CNTHERAPYon 01-31-2024 CNTHERAPY OT/PT/Speech Visit ( LDPT) MICHAEL MEIER ([id number]) 1940 F Date Time Provider Department 01/31/24 2:15 PM SARAH MERCHANT LDPT Date Time Provider Department Center 01/31/2024 2:15 PM [id number], CARLA LDPT [facility] Reason for Visit: Physical Therapy [503] Primary Visit Diagnosis:Weakness [R53.1] Other Visit Diagnoses:Imbalance [R26.89] Difficulty walking [R26.2] Allergies As of Date: 01/31/2024 Noted Allergy Reaction CIPROFLOXACIN 09/05/2018 2 - Rash DEMEROL (MEPERIDINE (PF)) 02/06/2011 11 - Vomiting OPIOIDS - MORPHINE ANALOGUES 03/17/2001 5 - Intolerance Comments: nausea, dizzy, sees things OPIOIDS-MEPERIDINE AND RELATED 02/17/2001 Comments: nausea/vomiting PENICILLIN G 02/17/2001 Comments: imani PRAVACHOL (PRAVASTATIN SODIUM) 03/09/2016 14 - Other: See Comments Comments: Leg cramps SULFA (SULFONAMIDE ANTIBIOTICS) 03/17/2001 Comments: hives VICODIN (HYDROCODONE-ACETAMINOPHE* 5 - Intolerance Comments: dizzy,nausea,vomiting,headac he ZITHROMAX (AZITHROMYCIN) 05/20/2017 5 - Intolerance Date Reviewed: 12/01/2023 Reviewed by: Julianna Cano LPN - Fully Assessed Prescriptions as of 01/31/2024 - levothyroxine (SYNTHROID) 50 mcg tablet Take 1 tablet by mouth daily before breakfast. In the morning, Take on empty stomach at least 30 min before eating. For thyroid. - PARoxetine (PAXIL) 20 mg tablet Take 1 tablet by mouth once daily. In the evening - LORazepam (ATIVAN) 0.5 mg Take 1 tablet by mouth two times a day as needed (anxiety attack). - rosuvastatin (CRESTOR) 10 mg tablet Take 1 tablet by mouth daily at bedtime. - guaiFENesin (MUCINEX) 600 mg 12 hr tablet Take 1 tablet by mouth two times a day as needed for cold/allergy symptoms. - vitamin B complex (B COMPLEX 1 ORAL) Take by mouth. - RESTASIS 0.05 % ophthalmic emulsion - Azelastine HCl (OPTIVAR) 0.05 % ophthalmic solution - albuterol HFA (PROVENTIL HFA, VENTOLIN HFA) 90 mcg/actuation inhaler Inhale 2 Puffs as instructed every 4 hours as needed. - hydroCHLOROthiazide (HYDRODIURIL, ESIDRIX) 12.5 mg capsule Take 2 capsules by mouth once daily. - sucralfate (CARAFATE) 100 mg/mL suspension Take 10 mL by mouth four times daily. - Cholecalciferol, Vitamin D3, 50 mcg (2,000 unit) cap Take 1 capsule by mouth once daily. - aspirin, enteric coated (ASPIRIN, ENTERIC COATED) 81 mg EC tablet Take 81 mg by mouth once daily. - PACERONE 200 mg tablet Take 200 mg by mouth once daily. - ubidecarenone (COQ-10 ORAL) Take by mouth. - diltiazem CD (CARDIZEM CD) 240 mg 24 hr capsule Take 1 capsule by mouth once daily. - losartan (COZAAR) 100 mg tablet Take 1 tablet by mouth once daily. Normal [facility] CNTHERAPYon 01-26-2024 CNTHERAPY OT/PT/Speech Visit ( LDPT) MICHAEL MEIER ([id number]) 1940 F Date Time Provider Department 01/26/24 3:00 PM WILFRED MCCLELLAN LDPT Date Time Provider Department Center 01/26/2024 3:00 PM [id number], PATRICK LDPT [facility] Reason for Visit: Physical Therapy [503] Primary Visit Diagnosis:Weakness [R53.1] Other Visit Diagnosis:Imbalance [R26.89] Allergies As of Date: 01/26/2024 Noted Allergy Reaction CIPROFLOXACIN 09/05/2018 2 - Rash DEMEROL (MEPERIDINE (PF)) 02/06/2011 11 - Vomiting OPIOIDS - MORPHINE ANALOGUES 03/17/2001 5 - Intolerance Comments: nausea, dizzy, sees things OPIOIDS-MEPERIDINE AND RELATED 02/17/2001 Comments: nausea/vomiting PENICILLIN G 02/17/2001 Comments: hives PRAVACHOL (PRAVASTATIN SODIUM) 03/09/2016 14 - Other: See Comments Comments: Leg cramps SULFA (SULFONAMIDE ANTIBIOTICS) 03/17/2001 Comments: hivmyranda VICODIN (HYDROCODONE-ACETAMINOPHE* 5 - Intolerance Comments: dizzy,nausea,vomiting,headac he ZITHROMAX (AZITHROMYCIN) 05/20/2017 5 - Intolerance Date Reviewed: 12/01/2023 Reviewed by: Julianna Cano LPN - Fully Assessed Prescriptions as of 01/26/2024 - levothyroxine (SYNTHROID) 50 mcg tablet Take 1 tablet by mouth daily before breakfast. In the morning, Take on empty stomach at least 30 min before eating. For thyroid. - PARoxetine (PAXIL) 20 mg tablet Take 1 tablet by mouth once daily. In the evening - LORazepam (ATIVAN) 0.5 mg Take 1 tablet by mouth two times a day as needed (anxiety attack). - rosuvastatin (CRESTOR) 10 mg tablet Take 1 tablet by mouth daily at bedtime. - guaiFENesin (MUCINEX) 600 mg 12 hr tablet Take 1 tablet by mouth two times a day as needed for cold/allergy symptoms. - vitamin B complex (B COMPLEX 1 ORAL) Take by mouth. - RESTASIS 0.05 % ophthalmic emulsion - Azelastine HCl (OPTIVAR) 0.05 % ophthalmic solution - albuterol HFA (PROVENTIL HFA, VENTOLIN HFA) 90 mcg/actuation inhaler Inhale 2 Puffs as instructed every 4 hours as needed. - hydroCHLOROthiazide (HYDRODIURIL, ESIDRIX) 12.5 mg capsule Take 2 capsules by mouth once daily. - sucralfate (CARAFATE) 100 mg/mL suspension Take 10 mL by mouth four times daily. - Cholecalciferol, Vitamin D3, 50 mcg (2,000 unit) cap Take 1 capsule by mouth once daily. - aspirin, enteric coated (ASPIRIN, ENTERIC COATED) 81 mg EC tablet Take 81 mg by mouth once daily. - PACERONE 200 mg tablet Take 200 mg by mouth once daily. - ubidecarenone (COQ-10 ORAL) Take by mouth. - diltiazem CD (CARDIZEM CD) 240 mg 24 hr capsule Take 1 capsule by mouth once daily. - losartan (COZAAR) 100 mg tablet Take 1 tablet by mouth once daily. Normal [facility] 12 Lead EKG performed by [facility] on 01-25-2024 12 Lead EKG performed by [address] [address] 12 Lead EKG performed by [facility] 01/25/24800 MR#: [id number] Acct: [id number] Name: MICHAEL MEIER Rep #: [id number] : 1940 83 From: Anabel Spence Attending Dr: NIDA Katz Status: DEP AMB Ordering Dr: Anabel Horne Date: 01/02 08/24 Location: [facility] Sex: F C Admitted: [facility]/12 Lead EKG performed by [facility] ECG Report Interpretation Si nus Rhythm WITHIN NORMAL LIMITSElectronically signed on 01/25/2024 at 14:38 by Gallo Hickey Software Version [id number] 01/25/24 1441 Date Anabel ALVA CC: Dr. Michael Puga DO Date Dictated: 01/25/24800 Date Transcribed: 01/25/24800 Oracle Fusion Middleware Developer: SILVERIO Signed Normal [facility] BNP,B-Type NATRIURETIC PEPTI Kenyatta 01-25-2024 Natriuretic peptide B (Bld) [Mass/Vol] 127.2 pg/mL High 0-100 [facility] Comment on above: Performed By: #### L 100.0100, L500.2500 #### [facility] [address] [place], [address] Basic Metabolic Profile (BMP )on 01-25-2024 BUN/CRE 27.3 RATIO High 10-20 [facility] Comment on above: Performed By: #### L 100.0100, L500.2500 #### [facility] [address] [place], [address] CA,Total 8.9 mg/dL Normal 8.5-10.1 [facility] Comment on above: Performed By: #### L 100.0100, L500.2500 #### [facility] [address] [place], [address] Chloride [Moles/Vol] 105 mmol/L Normal 98-107 [facility] Comment on above: Performed By: #### L 100.0100, L500.2500 #### [facility] [address] [place], [address] CO2 [Moles/Vol] 30.0 mmol/L Normal 21.0-32.0 [facility] Comment on above: Performed By: #### L 100.0100, L500.2500 #### [facility] [address] [place], [address] Creatinine [Mass/Vol] 0.55 mg/dL Normal 0.55-1.02 [facility] Comment on above: Result Comment: The validity of the calculated GFR GFRAA in patients over 70 years has not been determined. Clinical correlation is essential. Performed By: #### L 100.0100, L500.2500 #### [facility] [address] [place], [address] EST GFR - AA 136 mL/min Normal >60 [facility] Comment on above: Result Comment: Afri can Japanese GFR Calc Performed By: #### L 100.0100, L500.2500 #### [facility] [address] [place], [address] GAP 6 Normal 5-15 [facility] Comment on above: Performed By: #### L 100.0100, L500.2500 #### [facility] [address] [place], [address] GFR/1.73 sq M.predicted among non-blacks MDRD (S/P/Bld) [Vol rate/Area] 112 mL/min/{1.73_m2} Normal >60 [facility] Comment on above: Result Comment: Non- GFR Calc Performed By: #### L 100.0100, L500.2500 #### [facility] [address] [place], [address] Glucose [Mass/Vol] 109 mg/dL High 74-106 [facility] Comment on above: Result Comment: Fast ing Glucose result from 100 to 125 mg/dL suggests IMPAIRED HOMEOSTASIS per A.D.A. criteria. Performed By: #### L 100.0100, L500.2500 #### [facility] [address] [place], [address] Potassium [Moles/Vol] 3.2 mmol/L Low 3.5-5.1 [facility] Comment on above: Performed By: #### L 100.0100, L500.2500 #### [facility] [address] [place], [address] Sodium [Moles/Vol] 141 mmol/L Normal 136-145 [facility] Comment on above: Performed By: #### L 100.0100, L500.2500 #### [facility] [address] [place], [address] Urea nitrogen [Mass/Vol] 15 mg/dL Normal 7-18 [facility] Comment on above: Performed By: #### L 100.0100, L500.2500 #### [facility] [address] [place], [address] Cardiology Visit Reporton Cardiology Visit Report [facility] [address] [place] [address] OFFICE VISIT Date of Service: 01/25/24 MR#: [id number] Acct: [id number] Name: MICHAEL MEIER Rep #: [id number] : 1940 Provider: NIDA Carbajal Age/Sex: 83/F Location: [facility] Status: Signed [facility] History of Present Illness Details: MICHAEL MEIER, is a 82 F who presents for a follow-up visit. She is a lady with a history of paroxysmal atrial fibrillation, status post permanent pacemaker implantation and recent generator change, hypertension, obstructive sleep apnea and a previous history of TIA. She returns for follow-up visit. She does continue to complain of fatigue. He remember she had been on a beta- tenzin when she started complaining of this and that medication was changed however I does not appear to have made any difference. She has not had any recent episodes of atrial fibrillation. She denies any neck arm or jaw discomfort to suggest angina. Her last echocardiogram from 2019 demonstrated preserved ejection fraction stage I diastolic dysfunction. She has a history of paroxysmal atrial fibrillation status post pacemaker placement, hypertension, and obstructive sleep apnea. Patient was hospitalized in October 2023 with pneumonia. Since that time she has had fatigue and shortness of breath. She is able to do her ADLs without any problems but feels that she is not able to walk any distance without being short of breath. Her blood pressure is elevated today. She does not have any chest pain. She does not have any palpitations that she is aware of. She does not have any lightheadedness, dizziness. She does not have any lower extremity edema. Intake Vital Signs 12/03/22 09:50 10/01/23 10:59 01/25/24 12:59 01/25/24 13:00 Height 5 ft 5 in 5 ft 5 in 5 ft 5 in 5 ft 5 in Weight: 231 lb BMI 38.4 BP 174/74 H Blood Pressure Location Lt brachial Position Sitting Respiration 18 Pulse 60 Pulse Source Monitor Pulse Oximetry (%) 95 Intake Visit Reasons: 1 Y FU (MOVED FROM [facility]) Thread Inspector Required: No Is patient in pain?: No Allergies ciprofloxacin (From Cipro) Allergy (Verified 01/25/24 13:05) Rash Penicillins (PCN) Allergy (Verified 01/25/24 13:05) Hives Sulfa (Sulfonamide Antibiotics) Allergy (Verified 01/25/24 13:05) Hives Beta-Blockers (Beta-Adrenergic Bloc Adverse Reaction (Verified 01/25/24 13:05) Other hydrocodone (From Vicodin) Adverse Reaction (Verified 01/25/24 13:05) Other lisinopril Adverse Reaction (Verified 01/25/24 13:05) cough meperidine (From Demerol) Adverse Reaction (Verified 01/25/24 13:05) Vomiting pravastatin Adverse Reaction (Verified 01/25/24 13:05) Other Medications ???Medication ???Instructions ???Recorded ???Confirmed ???Type lorazepam 0.5 mg tablet 0.5 mg PO BID PRN PRN Anxiety 05/13/16 01/25/24 History aspirin 81 mg tablet,delayed 81 mg PO QDAY heart health #90 tabs 12/27/18 01/25/24 Rx release (Adult Low Dose Aspirin) coenzyme Q10 100 mg capsule (Co 100 mg PO DAILY supplement 01/23/20 01/25/24 History Q-10) rosuvastatin 10 mg tablet 10 mg PO DAILY cholesterol 01/23/20 01/25/24 History cholecalciferol (vitamin D3) 50 50 mcg PO DAILY vitamin 06/02/21 01/25/24 History mcg (2,000 unit) capsule sucralfate 100 mg/mL oral 10 ml PO TID PRN digestion 11/25/21 01/25/24 History suspension paroxetine HCl 20 mg tablet 20 mg PO DAILY mental health 12/03/22 01/25/24 History amiodarone 200 mg tablet 200 mg PO DAILY heart #90 tabs 02/11/23 01/25/24 Rx diltiazem HCl 240 mg 240 mg PO QHS heart #90 caps 04/08/23 01/25/24 Rx capsule,extended release 24 hr losartan 100 mg tablet 100 mg PO DAILY blood pressure #90 08/10/23 01/25/24 Rx tabs cyclosporine 0.05 % eye drops in a 1 drp EACH EYE Q12H eye health 09/27/23 01/25/24 History dropperette (Restasis) albuterol sulfate 90 mcg/actuation 2 puff inhalation Q6H PRN 10/02/23 01/25/24 Rx aerosol inhaler (ProAir HFA) shortness of breath or wheezing #6.7 grams prednisone 10 mg tablet 10 mg PO DAILY #32 tabs 10/02/23 01/25/24 Rx levothyroxine 50 mcg capsule 50 mcg PO QDAY 01/25/24 01/25/24 History spironolactone 25 mg tablet 25 mg PO DAILY #30 tabs 01/25/24 01/25/24 Rx trazodone 100 mg tablet 100 mg PO QDAY 01/25/24 01/25/24 History Have you fallen in the past year?: Yes PFSH Medical History Obesity TIA (transient ischemic attack) (12/2018) GI bleed (2018) Essential (primary) hypertension Gastritis (09/07/18) Osteoarthritis Anxiety Daytime somnolence Dysmetabolic syndrome X Allergic rhinitis Malignant melanoma of skin of trunk, except scrotum Hyperlipidemia FH: sudden cardiac (SCD) Colitis Depression Paroxysmal atrial fibrillation (more content not included)... Normal [facility] Thyroid Stim Hormone (TSH)on 01-25-2024 TSH 1.600 uIU/mL Normal 0.358-3.74 0 [facility] Comment on above: Performed By: #### L 100.0100, L500.2500 #### [facility] [address] [place], [address] [id number] 01-18-2024 [id number] HNO ID: [id number] Author: SARAH MERCHANT, PT Service: ? Author Type: Physical Therapist Type: [id number] Filed: 01/18/2024 16:07 Note Text: [facility] Physical Therapy Plan of Care Certification Patient Name: Michael Meeir : 1940 [facility] #: [id number] Date: 01/18/2024 To: Geeta Cadet,* From Therapist: Sarah Merchant, PT RE: Patient Certification/ Recertification Your review, approval and electronic signature are required in order to comply with Payor: MEDICARE / Plan: MEDICARE A AND B / Product Type: Medicare / regulations. The identified Physical Therapy PLAN OF CARE for the patient is as follows: R53.1 Weakness (primary encounter diagnosis) R26.89 Imbalance R26.2 Difficulty walking PLAN OF CARE UPDATE: Assessment: Michael Meier demonstrates minimal improvement in rising from a chair, standing, walking, and physical activities. She has progressed toward goals. Patient continues to present with impairments in ADL's, balance, gait, overall function, strength, and symptom management that interfere with walking, stair negotiation, heavy exertion, lifting, physical activities, recreational activities, kneeling, carrying, squatting . Current prognosis is Fair due to: advanced age, chronic nature of impairments, limited tolerance to activity, clinical presentation, multiple co- morbidities . Pt remains limited by impaired strength, balance AND endurance with impaired mobility AND safety and moderate fall risk. She will benefit from continued skilled therapy services to meet the updated goals for this plan of care as noted below. Goals for Episode of Care: created on 11/15/23 through 01/14/24, extended thru 04/17/24 [place] in home exercise program. Patient will demonstrate increase in B UE AND LE strength to 4+/5 during manual muscle testing in order to improve function for home management tasks and prior functional tasks. Patient will Improve Timed Up and Go to 12 seconds to demonstrate decreased risk of falling. Patient will improve 5 time sit to stand to demonstrate improvement in functional lower extremity strength. Patient will report no falls. Patient will demonstrate independent and proper use of assisstive device to allow for improved walking quality and safety therefore reducing the risk of falls. Patient Goals: I don't know why I'm here. I guess maybe to strengthen my legs Planned Interventions, Frequency, and Duration: 2x/week, 12 weeks Patient to be seen for Therapeutic exercise (74812), Neuromuscular re-education (92786), Therapeutic activities (88364), Self-senior care management (80817), Gait Training (07135), Patient/Family/Caregiver Education, General Conditioning PLAN FOR NEXT VISIT: continue to progress LE strength, balance, gait AND endurance For further details regarding this patient refer to the Physical Therapy electronically documented visit dated 01/18/2024. Provider Attestation I have reviewed the treatment plan for Michael Meier, [facility]# [id number] for the period of 01/18/24 -- 04/17/24, established on 01/18/2024. Signature certifies the need for therapy services. Normal [facility] CNTHERAPYon 01-18-2024 CNTHERAPY OT/PT/Speech Visit ( LDPT) HARDEEPMICHAEL [place] ([id number]) 1940 F Date Time Provider Department 01/18/24 1:30 PM SARAH MERCHANT LDPT Date Time Provider Department Center 01/18/2024 1:30 PM [id number], CARLA LDPT [facility] Reason for Visit: PT Progress Note [1596] Primary Visit Diagnosis:Weakness [R53.1] Other Visit Diagnoses:Imbalance [R26.89] Difficulty walking [R26.2] Allergies As of Date: 01/18/2024 Noted Allergy Reaction CIPROFLOXACIN 09/05/2018 2 - Rash DEMEROL (MEPERIDINE (PF)) 02/06/2011 11 - Vomiting OPIOIDS - MORPHINE ANALOGUES 03/17/2001 5 - Intolerance Comments: nausea, dizzy, sees things OPIOIDS-MEPERIDINE AND RELATED 02/17/2001 Comments: nausea/vomiting PENICILLIN G 02/17/2001 Comments: imani PRAVACHOL (PRAVASTATIN SODIUM) 03/09/2016 14 - Other: See Comments Comments: Leg cramps SULFA (SULFONAMIDE ANTIBIOTICS) 03/17/2001 Comments: imani VICODIN (HYDROCODONE-ACETAMINOPHE* 5 - Intolerance Comments: dizzy,nausea,vomiting,headac he ZITHROMAX (AZITHROMYCIN) 05/20/2017 5 - Intolerance Date Reviewed: 12/01/2023 Reviewed by: Julianna Cano LPN - Fully Assessed Prescriptions as of 02/29/2024 - levothyroxine (SYNTHROID) 50 mcg tablet Take 1 tablet by mouth daily before breakfast. In the morning, Take on empty stomach at least 30 min before eating. For thyroid. - PARoxetine (PAXIL) 20 mg tablet Take 1 tablet by mouth once daily. In the evening - LORazepam (ATIVAN) 0.5 mg Take 1 tablet by mouth two times a day as needed (anxiety attack). - rosuvastatin (CRESTOR) 10 mg tablet Take 1 tablet by mouth daily at bedtime. - guaiFENesin (MUCINEX) 600 mg 12 hr tablet Take 1 tablet by mouth two times a day as needed for cold/allergy symptoms. - vitamin B complex (B COMPLEX 1 ORAL) Take by mouth. - RESTASIS 0.05 % ophthalmic emulsion - Azelastine HCl (OPTIVAR) 0.05 % ophthalmic solution - albuterol HFA (PROVENTIL HFA, VENTOLIN HFA) 90 mcg/actuation inhaler Inhale 2 Puffs as instructed every 4 hours as needed. - hydroCHLOROthiazide (HYDRODIURIL, ESIDRIX) 12.5 mg capsule Take 2 capsules by mouth once daily. - sucralfate (CARAFATE) 100 mg/mL suspension Take 10 mL by mouth four times daily. - Cholecalciferol, Vitamin D3, 50 mcg (2,000 unit) cap Take 1 capsule by mouth once daily. - aspirin, enteric coated (ASPIRIN, ENTERIC COATED) 81 mg EC tablet Take 81 mg by mouth once daily. - PACERONE 200 mg tablet Take 200 mg by mouth once daily. - ubidecarenone (COQ-10 ORAL) Take by mouth. - diltiazem CD (CARDIZEM CD) 240 mg 24 hr capsule Take 1 capsule by mouth once daily. - losartan (COZAAR) 100 mg tablet Take 1 tablet by mouth once daily. Letter Text Normal [facility] Priscila 01-10-2024 LORRI Telephone (FAMPWS) BRADENMICHAEL DAVIES ([id number]) 1940 F Date Time Provider Department 01/10/24 PUGAMICHAEL During your visit today, we recorded the following information about you: Carie Lora RN 01/10/2024 2:44 PM Signed Patient calling with request for script for standard wheelchair for weakness and gait instability due to back problems. If agree, please fax script to [facility]. GLYNN Scott Bernadette, PA-C 01/11/2024 9:42 AM Signed Rx ordered, please fax. SERGE Griffin Susan LPN 01/11/2024 10:23 AM Signed Order faxed as below. Allergies As of Date: 01/10/2024 Noted Allergy Reaction CIPROFLOXACIN 09/05/2018 2 - Rash DEMEROL (MEPERIDINE (PF)) 02/06/2011 11 - Vomiting OPIOIDS - MORPHINE ANALOGUES 03/17/2001 5 - Intolerance Comments: nausea, dizzy, sees things OPIOIDS-MEPERIDINE AND RELATED 02/17/2001 Comments: nausea/vomiting PENICILLIN G 02/17/2001 Comments: imani PRAVACHOL (PRAVASTATIN SODIUM) 03/09/2016 14 - Other: See Comments Comments: Leg cramps SULFA (SULFONAMIDE ANTIBIOTICS) 03/17/2001 Comments: hives VICODIN (HYDROCODONE-ACETAMINOPHE* 5 - Intolerance Comments: dizzy,nausea,vomiting,headac he ZITHROMAX (AZITHROMYCIN) 05/20/2017 5 - Intolerance Date Reviewed: 12/01/2023 Reviewed by: Julianna Cano LPN - Fully Assessed Reason for Visit: Wheelchair order [Other] Primary Visit Diagnosis:Arthritis, multiple joint involvement [M12.9] Other Visit Diagnosis:Spinal stenosis of lumbar region without neurogenic claudication [M48.061] Order(s):STANDARD WHEELCHAIR [[id number]] Order #: [id number] Prescriptions as of 01/11/2024 - levothyroxine (SYNTHROID) 50 mcg tablet Take 1 tablet by mouth daily before breakfast. In the morning, Take on empty stomach at least 30 min before eating. For thyroid. - traZODone (DESYREL) 100 mg tablet Take 1 tablet by mouth daily at bedtime. - PARoxetine (PAXIL) 20 mg tablet Take 1 tablet by mouth once daily. In the evening - LORazepam (ATIVAN) 0.5 mg Take 1 tablet by mouth two times a day as needed (anxiety attack). - rosuvastatin (CRESTOR) 10 mg tablet Take 1 tablet by mouth daily at bedtime. - guaiFENesin (MUCINEX) 600 mg 12 hr tablet Take 1 tablet by mouth two times a day as needed for cold/allergy symptoms. - vitamin B complex (B COMPLEX 1 ORAL) Take by mouth. - RESTASIS 0.05 % ophthalmic emulsion - Azelastine HCl (OPTIVAR) 0.05 % ophthalmic solution - albuterol HFA (PROVENTIL HFA, VENTOLIN HFA) 90 mcg/actuation inhaler Inhale 2 Puffs as instructed every 4 hours as needed. - hydroCHLOROthiazide (HYDRODIURIL, ESIDRIX) 12.5 mg capsule Take 2 capsules by mouth once daily. - sucralfate (CARAFATE) 100 mg/mL suspension Take 10 mL by mouth four times daily. - Cholecalciferol, Vitamin D3, 50 mcg (2,000 unit) cap Take 1 capsule by mouth once daily. - aspirin, enteric coated (ASPIRIN, ENTERIC COATED) 81 mg EC tablet Take 81 mg by mouth once daily. - PACERONE 200 mg tablet Take 200 mg by mouth once daily. - ubidecarenone (COQ-10 ORAL) Take by mouth. - diltiazem CD (CARDIZEM CD) 240 mg 24 hr capsule Take 1 capsule by mouth once daily. - losartan (COZAAR) 100 mg tablet Take 1 tablet by mouth once daily. Problem List As Of Date 01/10/2024 Noted Resolved MALIG MELANOMA TRUNK [C43.59] 02/17/2001 Melanoma of skin, site unspecified [C43.9] 01/09/2012 ALLERGIC RHINITIS NOS [J30.9] Other and unspecified hyperlipidemia [E78.5] 03/11/2015 Primary hypertension [I10] Unspecified gastritis and gastroduodenitis [535* 03/11/2015 Actinic keratosis [L57.0] 01/20/2007 03/11/2015 Other chronic dermatitis due to solar radiation*01/20/2007 01/09/2012 Scar condition and fibrosis of skin [L90.5] 01/20/2007 03/11/2015 SOLAR LENGINES///DYSCHROMIA OTHER [L81.9] 01/20/2007 01/09/2012 Other seborrheic keratosis [L82.1] 01/20/2007 01/09/2012 NEVUS///BENIGN COLIN SKIN TRUNK [D23.5] 01/20/2007 01/09/2012 NEVI///BENIGN COLIN SKIN FACE NEC [D23.30] 01/20/2007 01/09/2012 SEBACEOUS HYPERPLASIA///SEBACEOUS GLAND DIS NOS*01/20/2007 01/09/2012 DYSMETABOLIC SYNDROME X [E88.810] 07/12/2007 A-fib (HCC) [I48.91] 10/08/2010 03/11/2015 Personal history of malignant melanoma of skin *02/08/2011 Actinic skin damage [L57.8] 01/09/2012 03/11/2015 Solar Lentigines [L81.4] 01/09/2012 03/11/2015 Surgical Scars [L90.5] 01/09/2012 03/11/2015 Irriated//Inflamed Seborrheic Keratoses [L82.0] 12/01/2013 03/11/2015 Other Seborrheic Keratoses [L82.1] 12/01/2013 03/11/2015 Xerosis cutis [L85.3] 12/01/2013 03/11/2015 Cutaneous skin tags [L91.8] 12/01/2013 03/11/2015 Hyperlipidemia [E78.5] 03/11/2015 08/16/2015 Paroxysmal atrial fibrillation (HCC) [I48.0] 03/11/2015 BMI 37.0-37.9, adult [Z68.37] 03/11/2015 08/16/2015 BMI 38.0-38.9,adult [Z68.38] 08/16/2015 Daytime somnolence [R40.0] 04/ (more content not included)... Normal [facility] CNTHERAPYon 12-13-2023 CNTHERAPY OT/PT/Speech Visit ( LDPT) MICHAEL MEIER ([id number]) 1940 F Date Time Provider Department 12/13/23 3:45 PM SARAH MERCHANT LDPT Date Time Provider Department Center 12/13/2023 3:45 PM [id number], CARLA LDPT [facility] Reason for Visit: Physical Therapy [503] Primary Visit Diagnosis:Weakness [R53.1] Other Visit Diagnoses:Difficulty walking [R26.2] Imbalance [R26.89] Allergies As of Date: 12/13/2023 Noted Allergy Reaction CIPROFLOXACIN 09/05/2018 2 - Rash DEMEROL (MEPERIDINE (PF)) 02/06/2011 11 - Vomiting OPIOIDS - MORPHINE ANALOGUES 03/17/2001 5 - Intolerance Comments: nausea, dizzy, sees things OPIOIDS-MEPERIDINE AND RELATED 02/17/2001 Comments: nausea/vomiting PENICILLIN G 02/17/2001 Comments: imani PRAVACHOL (PRAVASTATIN SODIUM) 03/09/2016 14 - Other: See Comments Comments: Leg cramps SULFA (SULFONAMIDE ANTIBIOTICS) 03/17/2001 Comments: imani VICODIN (HYDROCODONE-ACETAMINOPHE* 5 - Intolerance Comments: dizzy,nausea,vomiting,headac he ZITHROMAX (AZITHROMYCIN) 05/20/2017 5 - Intolerance Date Reviewed: 12/01/2023 Reviewed by: Julianna Cano LPN - Fully Assessed Prescriptions as of 12/13/2023 - levothyroxine (SYNTHROID) 50 mcg tablet Take 1 tablet by mouth daily before breakfast. In the morning, Take on empty stomach at least 30 min before eating. For thyroid. - doxycycline (VIBRA-TABS) 100 mg tablet Take 1 tablet by mouth two times a day for 14 days. - traZODone (DESYREL) 100 mg tablet Take 1 tablet by mouth daily at bedtime. - PARoxetine (PAXIL) 20 mg tablet Take 1 tablet by mouth once daily. In the evening - LORazepam (ATIVAN) 0.5 mg Take 1 tablet by mouth two times a day as needed (anxiety attack). - rosuvastatin (CRESTOR) 10 mg tablet Take 1 tablet by mouth daily at bedtime. - guaiFENesin (MUCINEX) 600 mg 12 hr tablet Take 1 tablet by mouth two times a day as needed for cold/allergy symptoms. - vitamin B complex (B COMPLEX 1 ORAL) Take by mouth. - RESTASIS 0.05 % ophthalmic emulsion - Azelastine HCl (OPTIVAR) 0.05 % ophthalmic solution - albuterol HFA (PROVENTIL HFA, VENTOLIN HFA) 90 mcg/actuation inhaler Inhale 2 Puffs as instructed every 4 hours as needed. - hydroCHLOROthiazide (HYDRODIURIL, ESIDRIX) 12.5 mg capsule Take 2 capsules by mouth once daily. - sucralfate (CARAFATE) 100 mg/mL suspension Take 10 mL by mouth four times daily. - Cholecalciferol, Vitamin D3, 50 mcg (2,000 unit) cap Take 1 capsule by mouth once daily. - aspirin, enteric coated (ASPIRIN, ENTERIC COATED) 81 mg EC tablet Take 81 mg by mouth once daily. - PACERONE 200 mg tablet Take 200 mg by mouth once daily. - ubidecarenone (COQ-10 ORAL) Take by mouth. - diltiazem CD (CARDIZEM CD) 240 mg 24 hr capsule Take 1 capsule by mouth once daily. - losartan (COZAAR) 100 mg tablet Take 1 tablet by mouth once daily. [facility] CNTHERAPYon 12-07-2023 CNTHERAPY OT/PT/Speech Visit ( LDPT) HARDEEPMICHAEL ([id number]) 1940 F Date Time Provider Department 12/07/23 4:30 PM WILFRED MCCLELLAN Date Time Provider Department [place] 12/07/2023 4:30 PM [id number] MCCLELLAN [facility] Reason for Visit: Physical Therapy [503] Primary Visit Diagnosis:Weakness [R53.1] Allergies As of Date: 12/07/2023 Noted Allergy Reaction CIPROFLOXACIN 09/05/2018 2 - Rash DEMEROL (MEPERIDINE (PF)) 02/06/2011 11 - Vomiting OPIOIDS - MORPHINE ANALOGUES 03/17/2001 5 - Intolerance Comments: nausea, dizzy, sees things OPIOIDS-MEPERIDINE AND RELATED 02/17/2001 Comments: nausea/vomiting PENICILLIN G 02/17/2001 Comments: imani PRAVACHOL (PRAVASTATIN SODIUM) 03/09/2016 14 - Other: See Comments Comments: Leg cramps SULFA (SULFONAMIDE ANTIBIOTICS) 03/17/2001 Comments: imani VICODIN (HYDROCODONE-ACETAMINOPHE* 5 - Intolerance Comments: dizzy,nausea,vomiting,headac he ZITHROMAX (AZITHROMYCIN) 05/20/2017 5 - Intolerance Date Reviewed: 12/01/2023 Reviewed by: Julianna Cano LPN - Fully Assessed Prescriptions as of 12/07/2023 - levothyroxine (SYNTHROID) 50 mcg tablet Take 1 tablet by mouth daily before breakfast. In the morning, Take on empty stomach at least 30 min before eating. For thyroid. - doxycycline (VIBRA-TABS) 100 mg tablet Take 1 tablet by mouth two times a day for 14 days. - predniSONE (DELTASONE) 10 mg tablet Take 4 tabs daily for 3 days, then 2 tabs daily for 3 days, then 1 tab daily for 3 days with food. - traZODone (DESYREL) 100 mg tablet Take 1 tablet by mouth daily at bedtime. - PARoxetine (PAXIL) 20 mg tablet Take 1 tablet by mouth once daily. In the evening - LORazepam (ATIVAN) 0.5 mg Take 1 tablet by mouth two times a day as needed (anxiety attack). - rosuvastatin (CRESTOR) 10 mg tablet Take 1 tablet by mouth daily at bedtime. - guaiFENesin (MUCINEX) 600 mg 12 hr tablet Take 1 tablet by mouth two times a day as needed for cold/allergy symptoms. - vitamin B complex (B COMPLEX 1 ORAL) Take by mouth. - RESTASIS 0.05 % ophthalmic emulsion - Azelastine HCl (OPTIVAR) 0.05 % ophthalmic solution - albuterol HFA (PROVENTIL HFA, VENTOLIN HFA) 90 mcg/actuation inhaler Inhale 2 Puffs as instructed every 4 hours as needed. - hydroCHLOROthiazide (HYDRODIURIL, ESIDRIX) 12.5 mg capsule Take 2 capsules by mouth once daily. - sucralfate (CARAFATE) 100 mg/mL suspension Take 10 mL by mouth four times daily. - Cholecalciferol, Vitamin D3, 50 mcg (2,000 unit) cap Take 1 capsule by mouth once daily. - aspirin, enteric coated (ASPIRIN, ENTERIC COATED) 81 mg EC tablet Take 81 mg by mouth once daily. - PACERONE 200 mg tablet Take 200 mg by mouth once daily. - ubidecarenone (COQ-10 ORAL) Take by mouth. - diltiazem CD (CARDIZEM CD) 240 mg 24 hr capsule Take 1 capsule by mouth once daily. - losartan (COZAAR) 100 mg tablet Take 1 tablet by mouth once daily. Account Services Analyst: Therapy (PT/OT/Speech/Resp) ID: [id number] 12/07/2023 5:18 PM Author: WILFRED MCCLELLAN Signed by WILFRED MCCLELLAN LIME KILN OPERATOR on 12/07/2023 at 5:18 PM Document text: Program_ID:[id number] Access Code: [email or web address] URL: [email or web address] Date: 12-07-2023 Prepared By: Margoth Mcclellan Program Notes Exercises - Seated Hip Abduction - 1-2 x daily - 5 x weekly - 2-3 sets - 10 reps Normal [facility] THERAPY NTon 12-07-2023 THERAPY NT HNO ID: [id number] Author: WILFRED MCCLELLAN PTA Service: ? Author Type: [employer] Umpire Type: Therapy (PT/OT/Speech/Resp) Filed: 12/07/2023 17:18 Note Text: Program_ID:[id number] Access Code: [email or web address] URL: [email or web address] Date: 12-07-2023 Prepared By: Margoth Mcclellan Program Notes Exercises - Seated Hip Abduction - 1-2 x daily - 5 x weekly - 2-3 sets - 10 reps Normal [facility] CNOVon 12-01-2023 CNOV Office Visit (FAMPWS ) MICHAEL MEIER ([id number]) 1940 F Date Time Provider Department 12/01/23 1:20 PM MICHAEL PUGA FAMPWS During your visit today, we recorded the following information about you: Temperature Pulse Respiration Blood pressure 98 degrees 64/minute 24/minute 146/76 Weight 103 kg Michael Puga, 12/01/2023 2:33 PM Signed CC: Michael Meier is a 83 year old female who presents to the office for follow up HPI: Recently had URI end of August, she was Diagnosed with pneumonia and treated with IV antibiotics and breathing treatments and oxygen x 3 weeks into end of October. Recently she has started with another cough and chest congestion and feeling fatigued and worn out. She admits that prior to these infections starting, she hadn't been taking any of her vitamins or supplements at all. No fevers or chills. No vomiting or diarrhea. Had been taking some tylenol and mucinex only Hypothyroidism, hasn't been taking her levothyroxine medication but willing to restart this. She states I didn't think it was helping me at all so I stopped it. PAST MEDICAL HISTORY No date: A-fib ([facility]) No date: Allergic rhinitis, cause unspecified No date: Arrhythmia No date: Arthritis No date: Greater trochanteric bursitis of left hip 2003: Melanoma of skin, site unspecified Comment: back No date: Osteoarthritis of left hip No date: Other and unspecified hyperlipidemia No date: Situational mixed anxiety and depressive disorder No date: Sleep apnea No date: Stroke ([facility]) No date: Unspecified essential hypertension No date: Unspecified gastritis and gastroduodenitis PAST SURGICAL HISTORY No date: ABDOMINAL SURGERY HX No date: APPENDECTOMY HX 12/09/2003: ARTHRP ACETBLR/PROX FEM PROSTC AGRFT/ALGRFT Comment: right hip, redone, 07/2004: ARTHRP ACETBLR/PROX FEM PROSTC AGRFT/ALGRFT; Left 11/15/2009: ARTHRP KATIE CONDYLEANDPLATU MEDIALANDLAT COMPARTMENTS Comment: Knee replacement, total -Left - [facility] 12/30/2009: ARTHRP BARRYE CONDYLEANDPLATU MEDIALANDLAT COMPARTMENTS Comment: Right knee replaced 06/29/2017: COLONOSCOPY FLX DX W/COLLJ SPEC WHEN PFRMD Comment: Colonoscopy 10/17/2020: EGD Comment: 01/08/2022: EGD W/O [facility] SPEC VARICIES INJ 11/29/2000: ESOPHAGOGASTRODUODENOSCOPY TRANSORAL DIAGNOSTIC Comment: EGD 06/29/2017: ESOPHAGOGASTRODUODENOSCOPY TRANSORAL DIAGNOSTIC Comment: EGD No date: JOINT REPLACEMENT HX No date: LAPS SURG CHOLECYSTECTOMY W/CHOLANGIOGRAPHY 01/2011: PACEMAKER IMPLANT No date: SKIN BIOPSY HX No date: TONSILLECTOMY HX No date: TOTAL ABDOMINAL HYSTERECT W/WO RMVL TUBE OVARY Comment: Hysterectomy, GAL Current Outpatient Medications Medication Sig traZODone (DESYREL) 100 mg tablet Take 1 tablet by mouth daily at bedtime. PARoxetine (PAXIL) 20 mg tablet Take 1 tablet by mouth once daily. In the evening LORazepam (ATIVAN) 0.5 mg Take 1 tablet by mouth two times a day as needed (anxiety attack). rosuvastatin (CRESTOR) 10 mg tablet Take 1 tablet by mouth daily at bedtime. guaiFENesin (MUCINEX) 600 mg 12 hr tablet Take 1 tablet by mouth two times a day as needed for cold/allergy symptoms. levothyroxine (SYNTHROID) 25 mcg tablet Take 1 tablet by mouth once daily. In the morning, Take on empty stomach at least 30 min before eating. For thyroid. vitamin B complex (B COMPLEX 1 ORAL) Take by mouth. (Patient not taking: Reported on 10/14/2023) ferrous sulfate (SLOW FE ORAL) Take by mouth twice daily. (Patient not taking: Reported on 10/14/2023) RESTASIS 0.05 % ophthalmic emulsion Azelastine HCl (OPTIVAR) 0.05 % ophthalmic solution albuterol HFA (PROVENTIL HFA, VENTOLIN HFA) 90 mcg/actuation inhaler Inhale 2 Puffs as instructed every 4 hours as needed. hydroCHLOROthiazide (HYDRODIURIL, ESIDRIX) 12.5 mg capsule Take 2 capsules by mouth once daily. sucralfate (CARAFATE) 100 mg/mL suspension Take 10 mL by mouth four times daily. Cholecalciferol, Vitamin D3, 50 mcg (2,000 unit) cap Take 1 capsule by mouth once daily. (Patient not taking: Reported on 10/14/2023) aspirin, enteric coated (ASPIRIN, ENTERIC COATED) 81 mg EC tablet Take 81 mg by mouth once daily. PACERONE 200 mg tablet Take 200 mg by mouth once daily. ubidecarenone (COQ-10 ORAL) Take by mouth. (Patient not taking: Reported on 10/14/2023) diltiazem CD (CARDIZEM CD) 240 mg 24 hr capsule Take 1 capsule by mouth once daily. losartan (COZAAR) 100 mg tablet Take 1 tablet by mouth once daily. No current facility-administered medications for this visit. ALLERGIES Allergen Reactions Ciprofloxacin Rash Demerol [Meperidine* Vomiting Opioids - Morphine * Intolerance nausea, dizzy, sees things Opioids-Meperidine * nausea/vomiting Penicillin G hives Pravachol [Pravasta* Other: See Comments Leg cramps Sulfa (Sulfonamide * hives Vicodin [[place] (more content not included)... [facility] MICHAEL MEIER ([id number]) 1940 F Date Time Provider Department 11/26/23 ASIA ROSALES During your visit today, we recorded the following information about you: Asia Rosales APRN.CARMELINA 11/26/2023 6:56 AM Signed Please let her know that overall no acute concerns with her labs, she can discuss in more detail at her upcoming appt with Dr. Puga. Asia Rosales APRN.Jacque Arrieta MA 11/26/2023 8:26 AM Addendum Started to speak with patient and other line disconnected. Please try again. ALEX Arenas M Robin, RN 11/26/2023 8:41 AM Signed Pt returned call and given provider's message below with verbalized understanding. Patient reports her phone on previous call. Allergies As of Date: 11/26/2023 Noted Allergy Reaction CIPROFLOXACIN 09/05/2018 2 - Rash DEMEROL (MEPERIDINE (PF)) 02/06/2011 11 - Vomiting OPIOIDS - MORPHINE ANALOGUES 03/17/2001 5 - Intolerance Comments: nausea, dizzy, sees things OPIOIDS-MEPERIDINE AND RELATED 02/17/2001 Comments: nausea/vomiting PENICILLIN G 02/17/2001 Comments: hives PRAVACHOL (PRAVASTATIN SODIUM) 03/09/2016 14 - Other: See Comments Comments: Leg cramps SULFA (SULFONAMIDE ANTIBIOTICS) 03/17/2001 Comments: hives VICODIN (HYDROCODONE-ACETAMINOPHE* 5 - Intolerance Comments: dizzy,nausea,vomiting,headac he ZITHROMAX (AZITHROMYCIN) 05/20/2017 5 - Intolerance Date Reviewed: 10/14/2023 Reviewed by: Marisol Cano LPN - Fully Assessed Reason for Visit: Results [95] Prescriptions as of 11/26/2023 - traZODone (DESYREL) 100 mg tablet Take 1 tablet by mouth daily at bedtime. - PARoxetine (PAXIL) 20 mg tablet Take 1 tablet by mouth once daily. In the evening - LORazepam (ATIVAN) 0.5 mg Take 1 tablet by mouth two times a day as needed (anxiety attack). - rosuvastatin (CRESTOR) 10 mg tablet Take 1 tablet by mouth daily at bedtime. - guaiFENesin (MUCINEX) 600 mg 12 hr tablet Take 1 tablet by mouth two times a day as needed for cold/allergy symptoms. - levothyroxine (SYNTHROID) 25 mcg tablet Take 1 tablet by mouth once daily. In the morning, Take on empty stomach at least 30 min before eating. For thyroid. - vitamin B complex (B COMPLEX 1 ORAL) Take by mouth. - ferrous sulfate (SLOW FE ORAL) Take by mouth twice daily. - RESTASIS 0.05 % ophthalmic emulsion - Azelastine HCl (OPTIVAR) 0.05 % ophthalmic solution - albuterol HFA (PROVENTIL HFA, VENTOLIN HFA) 90 mcg/actuation inhaler Inhale 2 Puffs as instructed every 4 hours as needed. - hydroCHLOROthiazide (HYDRODIURIL, ESIDRIX) 12.5 mg capsule Take 2 capsules by mouth once daily. - sucralfate (CARAFATE) 100 mg/mL suspension Take 10 mL by mouth four times daily. - Cholecalciferol, Vitamin D3, 50 mcg (2,000 unit) cap Take 1 capsule by mouth once daily. - aspirin, enteric coated (ASPIRIN, ENTERIC COATED) 81 mg EC tablet Take 81 mg by mouth once daily. - PACERONE 200 mg tablet Take 200 mg by mouth once daily. - ubidecarenone (COQ-10 ORAL) Take by mouth. - diltiazem CD (CARDIZEM CD) 240 mg 24 hr capsule Take 1 capsule by mouth once daily. - losartan (COZAAR) 100 mg tablet Take 1 tablet by mouth once daily. Problem List As Of Date 11/26/2023 Noted Resolved MALIG MELANOMA TRUNK [C43.59] 02/17/2001 Melanoma of skin, site unspecified [C43.9] 01/09/2012 ALLERGIC RHINITIS NOS [J30.9] Other and unspecified hyperlipidemia [E78.5] 03/11/2015 Primary hypertension [I10] Unspecified gastritis and gastroduodenitis [535* 03/11/2015 Actinic keratosis [L57.0] 01/20/2007 03/11/2015 Other chronic dermatitis due to solar radiation*01/20/2007 01/09/2012 Scar condition and fibrosis of skin [L90.5] 01/20/2007 03/11/2015 SOLAR LENGINES///DYSCHROMIA OTHER [L81.9] 01/20/2007 01/09/2012 Other seborrheic keratosis [L82.1] 01/20/2007 01/09/2012 NEVUS///BENIGN COLIN SKIN TRUNK [D23.5] 01/20/2007 01/09/2012 NEVI///BENIGN COLIN SKIN FACE NEC [D23.30] 01/20/2007 01/09/2012 SEBACEOUS HYPERPLASIA///SEBACEOUS GLAND DIS NOS*01/20/2007 01/09/2012 DYSMETABOLIC SYNDROME X [E88.810] 07/12/2007 A-fib (HCC) [I48.91] 10/08/2010 03/11/2015 Personal history of malignant melanoma of skin *02/08/2011 Actinic skin damage [L57.8] 01/09/2012 03/11/2015 Solar Lentigines [L81.4] 01/09/2012 03/11/2015 Surgical Scars [L90.5] 01/09/2012 03/11/2015 Irriated//Inflamed Seborrheic Keratoses [L82.0] 12/01/2013 03/11/2015 Other Seborrheic Keratoses [L82.1] 12/01/2013 03/11/2015 Xerosis cutis [L85.3] 12/01/2013 03/11/2015 Cutaneous skin tags [L91.8] 12/01/2013 03/11/2015 Hyperlipidemia [E78.5] 03/11/2015 08/16/2015 Paroxysmal atrial fibrillation (HCC) [I48.0] 03/11/2015 BMI 37.0-37.9, adult [Z68.37] 03/11/2015 08/16/2015 BMI 38.0-38.9,adult [Z68.38] 08/16/2015 Daytime somnolence [R40.0] 08/16/2015 Hyperlipidemia [E78.5] 10/25/2015 JOSE on CPAP [G47.33] (more content not included)... Normal [facility] CBC W Auto Differential pane l (Bld)on 11-25-2023 Basophils (Bld) [#/Vol] 0.10 10*3/uL Normal <0.11 [facility] Comment on above: Order Comment: Speci men Type: BLOOD SPECIMENOrdering Facility: [facility] Address: [address] [place] [address] Performed By: #### 5 7021-8 ####[facility] [place] LABCLIA [id number] [place] [address] [place] Basophils/100 WBC (Bld) 1.3 % Normal [facility] Comment on above: Order Comment: Speci men Type: BLOOD SPECIMENOrdering Facility: [facility] Address: [address] [place] [address] Performed By: #### 5 7021-8 ####[facility] LABCLIA [id number] [place] [address] [place] Differential cell count method Nom (Bld) Auto Normal [facility] Comment on above: Order Comment: Speci men Type: BLOOD SPECIMENOrdering Facility: [facility] Address: [address] [place] [address] Performed By: #### 5 7021-8 ####[facility] [place] LABCLIA [id number] [place] [address] [place] Eosinophils (Bld) [#/Vol] 0.23 10*3/uL Normal <0.46 [facility] Comment on above: Order Comment: Speci men Type: BLOOD SPECIMENOrdering Facility: [facility] Address: [address] [place] [address] Performed By: #### 5 7021-8 ####[facility] [place] LABCLIA [id number] [place] [address] [place] Eosinophils/100 WBC (Bld) 3.0 % Normal [facility] Comment on above: Order Comment: Speci men Type: BLOOD SPECIMENOrdering Facility: [facility] Address: [address] [place] [address] Performed By: #### 5 7021-8 ####[facility] LABCLIA [id number] [place] [address] [place] Erythrocyte distribution width (RBC) [Ratio] 14.6 % Normal 11.5-15.0 [facility] Comment on above: Order Comment: Speci men Type: BLOOD SPECIMENOrdering Facility: [facility] Address: [address] [place] [address] Performed By: #### 5 7021-8 ####[facility] LABCLIA [id number] [place] [address] [place] Hematocrit (Bld) [Volume fraction] 43.0 % Normal 36.0-46.0 [facility] Comment on above: Order Comment: Speci men Type: BLOOD SPECIMENOrdering Facility: [facility] Address: [address] [place] [address] Performed By: #### 5 7021-8 ####[facility] [place] LABCLIA [id number] [place] [address] [place] Hemoglobin (Bld) [Mass/Vol] 13.7 g/dL Normal 11.5-15.5 [facility] Comment on above: Order Comment: Speci men Type: BLOOD SPECIMENOrdering Facility: [facility] Address: [address] [place] [address] Performed By: #### 5 7021-8 ####[facility] [place] [facility]CLIA [id number] [facility] [place] [address] [place] Immature granulocytes (Bld) [#/Vol] 10*3/uL Normal <0.10 [facility] Comment on above: Order Comment: Speci men Type: BLOOD SPECIMENOrdering Facility: [facility] Address: [address] [place] [address] Performed By: #### 5 7021-8 ####[facility] [place] LABCLIA [id number] [facility] [place] [address] [place] [facility] Immature granulocytes/100 WBC (Bld) 0.1 % Normal [facility] Comment on above: Order Comment: Speci men Type: BLOOD SPECIMENOrdering Facility: [facility] Address: [address] [place] [address] Performed By: #### 5 7021-8 ####[facility] LABCLIA [id number] [facility] [place] [address] [place] Lymphocytes (Bld) [#/Vol] 1.29 10*3/uL Normal 1.00-4.00 [facility] Comment on above: Order Comment: Speci men Type: BLOOD SPECIMENOrdering Facility: [facility] Address: [address] [place] [address] Performed By: #### 5 7021-8 ####[facility] LABCLIA [id number] [place] [place] [address] [place] [facility] Lymphocytes/100 WBC (Bld) 16.9 % Normal [facility] Comment on above: Order Comment: Speci men Type: BLOOD SPECIMENOrdering Facility: [facility] Address: [address] [place] [address] Performed By: #### 5 7021-8 ####[facility] [place] LABCLIA [id number] [place] [address] [place] MCH (RBC) [Entitic mass] 29.7 pg Normal 26.0-34.0 [facility] Comment on above: Order Comment: Speci men Type: BLOOD SPECIMENOrdering Facility: [facility] Address: [address] [place] [address] Performed By: #### 5 7021-8 ####[facility] LABCLIA [id number] [place] [address] [place] MCHC (RBC) [Mass/Vol] 31.9 g/dL Normal 30.5-36.0 [facility] Comment on above: Order Comment: Speci men Type: BLOOD SPECIMENOrdering Facility: [facility] Address: [address] [place] [address] Performed By: #### 5 7021-8 ####[facility] LABCLIA [id number] [place] [address] [place] MCV (RBC) [Entitic vol] 93.1 fL Normal 80.0-100.0 [facility] Comment on above: Order Comment: Speci men Type: BLOOD SPECIMENOrdering Facility: [facility] Address: [address] [place] [address] Performed By: #### 5 7021-8 ####[facility] LABCLIA [id number] [place] [address] [place] Monocytes (Bld) [#/Vol] 0.84 10*3/uL Normal <0.87 [facility] Comment on above: Order Comment: Speci men Type: BLOOD SPECIMENOrdering Facility: [facility] Address: [address] [place] [address] Performed By: #### 5 7021-8 ####[facility] LABCLIA [id number] [place] [address] [facility] Monocytes/100 WBC (Bld) 11.0 % Normal [facility] Comment on above: Order Comment: Speci men Type: BLOOD SPECIMENOrdering Facility: [facility] Address: [address] [place] [address] Performed By: #### 5 7021-8 ####[facility] LABCLIA [id number] [place] [address] [place] Neutrophils (Bld) [#/Vol] 5.18 10*3/uL Normal 1.45-7.50 [facility] Comment on above: Order Comment: Speci men Type: BLOOD SPECIMENOrdering Facility: [facility] Address: [address] [place] [address] Performed By: #### 5 7021-8 ####[facility] LABCLIA [id number] [place] [address] [place] Neutrophils/100 WBC (Bld) 67.7 % Normal [facility] Comment on above: Order Comment: Speci men Type: BLOOD SPECIMENOrdering Facility: [facility] Address: [address] [place] [address] Performed By: #### 5 7021-8 ####[facility] LABCLIA [id number] [facility] [address] [place] Nucleated RBC (Bld) [#/Vol] Normal [facility] Comment on above: Order Comment: Speci men Type: BLOOD SPECIMENOrdering Facility: [facility] Address: [address] [place] [address] Performed By: #### 5 7021-8 ####[facility] LABCLIA [id number] [facility] [place] [address] [place] Nucleated RBC/100 WBC (Bld) [Ratio] Normal [facility] Comment on above: Order Comment: Speci men Type: BLOOD SPECIMENOrdering Facility: [facility] Address: [address] [place] [address] Performed By: #### 5 7021-8 ####[facility] LABCLIA [id number] [facility] [place] [address] [place] Platelet mean volume (Bld) [Entitic vol] 10.8 fL Normal 9.0-12.7 [facility] Comment on above: Order Comment: Speci men Type: BLOOD SPECIMENOrdering Facility: [facility] Address: [address] [place] [address] Performed By: #### 5 7021-8 ####[facility] [place] LABCLIA [id number] [place] [address] [facility] Platelets (Bld) [#/Vol] 223 10*3/uL Normal 150-400 [facility] Comment on above: Order Comment: Speci men Type: BLOOD SPECIMENOrdering Facility: [facility] Address: [address] [place] [address] Performed By: #### 5 7021-8 ####[facility] LABCLIA [id number] [place] [address] [facility] RBC (Bld) [#/Vol] 4.62 10*6/uL Normal 3.90-5.20 [facility] Comment on above: Order Comment: Speci men Type: BLOOD SPECIMENOrdering Facility: [facility] Address: [address] [place] [address] Performed By: #### 5 7021-8 ####[facility] LABCLIA [id number] [place] [address] [facility] WBC (Bld) [#/Vol] 7.65 10*3/uL Normal 3.70-11.00 [facility] Comment on above: Order Comment: Speci men Type: BLOOD SPECIMENOrdering Facility: [facility] Address: [address] [place] [address] Performed By: #### 5 7021-8 ####[facility] LABCLIA [id number] [place] [address] [facility] CNTHERAPYon 11-25-2023 CNTHERAPY OT/PT/Speech Visit ( LDPT) MICHAEL MEIER ([id number]) 1940 F Date Time Provider Department 11/25/23 8:30 AM SARAH MERCHANT LDPT Date Time Provider Department Center 11/25/2023 8:30 AM [id number], SARAH LDPT [facility] Reason for Visit: Physical Therapy [503] Primary Visit Diagnosis:Weakness [R53.1] Other Visit Diagnoses:Difficulty walking [R26.2] Imbalance [R26.89] Allergies As of Date: 11/25/2023 Noted Allergy Reaction CIPROFLOXACIN 09/05/2018 2 - Rash DEMEROL (MEPERIDINE (PF)) 02/06/2011 11 - Vomiting OPIOIDS - MORPHINE ANALOGUES 03/17/2001 5 - Intolerance Comments: nausea, dizzy, sees things OPIOIDS-MEPERIDINE AND RELATED 02/17/2001 Comments: nausea/vomiting PENICILLIN G 02/17/2001 Comments: hives PRAVACHOL (PRAVASTATIN SODIUM) 03/09/2016 14 - Other: See Comments Comments: Leg cramps SULFA (SULFONAMIDE ANTIBIOTICS) 03/17/2001 Comments: hives VICODIN (HYDROCODONE-ACETAMINOPHE* 5 - Intolerance Comments: dizzy,nausea,vomiting,headac he ZITHROMAX (AZITHROMYCIN) 05/20/2017 5 - Intolerance Date Reviewed: 10/14/2023 Reviewed by: Marisol Cano LPN - Fully Assessed Prescriptions as of 11/25/2023 - traZODone (DESYREL) 100 mg tablet Take 1 tablet by mouth daily at bedtime. - PARoxetine (PAXIL) 20 mg tablet Take 1 tablet by mouth once daily. In the evening - LORazepam (ATIVAN) 0.5 mg Take 1 tablet by mouth two times a day as needed (anxiety attack). - rosuvastatin (CRESTOR) 10 mg tablet Take 1 tablet by mouth daily at bedtime. - guaiFENesin (MUCINEX) 600 mg 12 hr tablet Take 1 tablet by mouth two times a day as needed for cold/allergy symptoms. - levothyroxine (SYNTHROID) 25 mcg tablet Take 1 tablet by mouth once daily. In the morning, Take on empty stomach at least 30 min before eating. For thyroid. - vitamin B complex (B COMPLEX 1 ORAL) Take by mouth. - ferrous sulfate (SLOW FE ORAL) Take by mouth twice daily. - RESTASIS 0.05 % ophthalmic emulsion - Azelastine HCl (OPTIVAR) 0.05 % ophthalmic solution - albuterol HFA (PROVENTIL HFA, VENTOLIN HFA) 90 mcg/actuation inhaler Inhale 2 Puffs as instructed every 4 hours as needed. - hydroCHLOROthiazide (HYDRODIURIL, ESIDRIX) 12.5 mg capsule Take 2 capsules by mouth once daily. - sucralfate (CARAFATE) 100 mg/mL suspension Take 10 mL by mouth four times daily. - Cholecalciferol, Vitamin D3, 50 mcg (2,000 unit) cap Take 1 capsule by mouth once daily. - aspirin, enteric coated (ASPIRIN, ENTERIC COATED) 81 mg EC tablet Take 81 mg by mouth once daily. - PACERONE 200 mg tablet Take 200 mg by mouth once daily. - ubidecarenone (COQ-10 ORAL) Take by mouth. - diltiazem CD (CARDIZEM CD) 240 mg 24 hr capsule Take 1 capsule by mouth once daily. - losartan (COZAAR) 100 mg tablet Take 1 tablet by mouth once daily. Normal [facility] Comprehensive metabolic 2000 panelon 11-25-2023 Albumin [Mass/Vol] 4.3 g/dL Normal 3.9-4.9 [facility] Comment on above: Order Comment: Lori mosqueda Type: BLOOD SPECIMEN [facility] Address: [address] [place] [address] Performed By: #### 2 4323-8, 39164-4, 3 #### [facility] CLIA [id number] [address] [place] [address] STATES [place] [facility] ALP [Catalytic activity/Vol] 97 U/L Normal 34-123 [facility] Comment on above: Order Comment: Lori mosqueda Type: BLOOD SPECIMEN [facility] Address: [address] [place] [address] Performed By: #### 2 4323-8, 75007-3, 3016-3 #### [facility] [place] CLIA [id number] [address] [facility] [address] [place] ALT With P-5'-P [Catalytic activity/Vol] 23 U/L Normal 7-38 [facility] Comment on above: Order Comment: Speci men Type: BLOOD SPECIMEN [facility] Address: [address] [place] [address] Performed By: #### 2 4323-8, 19604-8, 6-3 #### [facility] [place] [facility] CLIA [id number] [address] [place] [address] [place] Anion gap [Moles/Vol] 14 mmol/L Normal 8-15 [facility] Comment on above: Order Comment: Speci men Type: BLOOD SPECIMEN [facility] Address: [address] [place] [address] Performed By: #### 2 4323-8, 78363-7, 3015-3 #### [facility] [place] [facility] CLIA [id number] [address] [place] [address] [place] AST With P-5'-P [Catalytic activity/Vol] 25 U/L Normal 13-35 [facility] Comment on above: Order Comment: Speci men Type: BLOOD SPECIMEN [facility] Address: [address] [place] [address] Performed By: #### 2 4323-8, 18796-7, 3015-3 #### [facility] [place] [facility] CLIA [id number] [address] [place] [address] [place] Bilirubin [Mass/Vol] 0.7 mg/dL Normal 0.2-1.3 [facility] Comment on above: Order Comment: Speci men Type: BLOOD SPECIMEN [facility] Address: [address] [place] [address] Performed By: #### 2 4323-8, 26331-4, 6-3 #### [facility] [place] [facility] CLIA [id number] [address] [place] [address] [place] Calcium [Mass/Vol] 9.3 mg/dL Normal 8.5-10.2 [facility] Comment on above: Order Comment: Speci men Type: BLOOD SPECIMEN [facility] Address: [address] [place] [address] Performed By: #### 2 4323-8, 53516-1, 3016-3 #### [facility] [place] [facility] CLIA [id number] [address] [place] [address] [place] Chloride [Moles/Vol] 102 mmol/L Normal 98-107 [facility] Comment on above: Order Comment: Speci men Type: BLOOD SPECIMEN [facility] Address: [address] [place] [address] Performed By: #### 2 4323-8, 30112-7, 3015-3 #### [facility] [place] [facility] CLIA [id number] [address] [place] [address] [place] CO2 [Moles/Vol] 26 mmol/L Normal 22-30 [facility] Comment on above: Order Comment: Speci men Type: BLOOD SPECIMEN [facility] Address: [address] [place] [address] Performed By: #### 2 4323-8, 53978-8, 3015-3 #### [facility] [place] [facility] CLIA [id number] [address] [place] [address] [place] Creatinine [Mass/Vol] 0.64 mg/dL Normal 0.58-0.96 [facility] Comment on above: Order Comment: Speci men Type: BLOOD SPECIMEN [facility] Address: [address] [place], [place] [address] Performed By: #### 2 4323-8, 78760-4, 6-3 #### [facility] [place] [facility] CLIA [id number] [address] [place] [address] [place] Creatinine and Glomerular filtration rate.predicted panel (S/P/Bld) 88 mL/min/1.73m??? Normal >=60 [facility] Comment on above: Order Comment: Lori mosqueda Type: BLOOD SPECIMEN [facility] Address: [address] [id number] Result Comment: Bina mated Glomerular Filtration Rate (eGFR) is calculated using the 2020 CKD-EPI creatinine equation. This equation utilizes serum creatinine, sex, and age as parameters. The creatinine assay has traceable calibration to isotope dilution-mass spectrometry. Refer to KDIGO guidelines for clinical interpretation. In patients with unstable renal function, e.g. those with acute kidney injury, the eGFR may not accurately reflect actual GFR. Performed By: #### 2 4323-8, 98259-9, 6-3 #### [facility] CLIA [id number] [address] [place] [address] [place] Glucose [Mass/Vol] 99 mg/dL Normal 74-99 [facility] Comment on above: Order Comment: Lori mosqueda Type: BLOOD SPECIMEN [facility] Address: [address] [place] [address] Result Comment: The [place] Diabetes Association (ADA) provides guidance for cutoff values for fasting glucose and random glucose. The ADA defines fasting as no caloric intake for at least 8 hours. Fasting plasma glucose results between 100 to 125 mg/dL indicate increased risk for diabetes (prediabetes). Fasting plasma glucose results greater than or equal to 126 mg/dL meet the criteria for diagnosis of diabetes. In the absence of unequivocal hyperglycemia, results should be confirmed by repeat testing. In a patient with classic symptoms of hyperglycemia or hyperglycemic crisis, random plasma glucose results greater than or equal to 200 mg/dL meet the criteria for diagnosis of diabetes. Reference: Standards of Medical Care in Diabetes 2016, [place] Diabetes Association. Diabetes Care. 2016.39(Suppl 1). Performed By: #### 2 4323-8, 67965-3, 3 #### [facility] CLIA [id number] [address] [place] [address] [place] Potassium [Moles/Vol] 3.8 mmol/L Normal 3.7-5.1 [facility] Comment on above: Order Comment: Lori mosqueda Type: BLOOD SPECIMEN [facility] Address: [address] [id number] Performed By: #### 2 4323-8, 30276-1, 3016-3 #### [facility] [place] [facility] CLIA [id number] [address] [place] [address] [place] Protein [Mass/Vol] 6.8 g/dL Normal 6.3-8.0 [facility] Comment on above: Order Comment: Speci men Type: BLOOD SPECIMEN [facility] Address: [address] [place] [address] Performed By: #### 2 4323-8, 47882-1, 3016-3 #### [facility] [place] [facility] CLIA [id number] [address] [place] [address] [place] Sodium [Moles/Vol] 142 mmol/L Normal 136-144 [facility] Comment on above: Order Comment: Speci men Type: BLOOD SPECIMEN [facility] Address: [address] [place] [address] Performed By: #### 2 4323-8, 40056-4, 3016-3 #### [facility] [place] [facility] CLIA [id number] [address] [place] [address] [place] Urea nitrogen [Mass/Vol] 10 mg/dL Normal 7-21 [facility] Comment on above: Order Comment: Speci men Type: BLOOD SPECIMEN [facility] Address: [address] [place] [address] Performed By: #### 2 4323-8, 35935-6, 3016-3 #### [facility] [place] [facility] CLIA [id number] [address] [place] [address] [place] HbA1c (Bld)on 11-25-2023 Average glucose Estimated from glycated hemoglobin (Bld) [Mass/Vol] 97 mg/dL Normal [facility] Comment on above: Order Comment: Speci men Type: BLOOD SPECIMENOrdering Facility: [facility] Address: [address] [place] [address] Result Comment: eAG: (Estimated average glucose) is a calculated value from HgbA1c and is u.s. representative of the average blood glucose level in the last 2-3 month period. Performed By: #### 5 5454-3 ####[facility] LABCLIA [id number] [place] [address] [place] HbA1c (Bld) [Mass fraction] 5.0 % Normal 4.3-5.6 [facility] Comment on above: Order Comment: Lori mosqueda Type: BLOOD SPECIMENOrdering Facility: [facility] Address: [address] [place] [address] Result Comment: Amer [place] Diabetes Association guidelines indicate that patients with HgbA1c in the range 5.7-6.4% are at increased risk for development of diabetes, and intervention by lifestyle modification may be beneficial. HgbA1c greater or equal to 6.5% is considered diagnostic of diabetes. Performed By: #### 5 5454-3 ####[facility] LABCLIA [id number] [place] [address] [place] Lipid 1996 panelon 4 Cholesterol [Mass/Vol] 159 mg/dL Normal <200 [facility] Comment on above: Order Comment: Lori mosqueda Type: BLOOD SPECIMEN [facility] Address: [address] [place] [address] Result Comment: <200 mg/dL, Desirable 200-239 mg/dL, Borderline high >239 mg/dL, High Performed By: #### 2 4323-8, 26326-3, 3015-3 #### [facility] CLIA [id number] [address] [place] [address] [place] OF [facility] Cholesterol in HDL [Mass/Vol] 74 mg/dL Normal >39 [facility] Comment on above: Order Comment: Lori mosqueda Type: BLOOD SPECIMEN [facility] Address: [address] [place] [address] Result Comment: 40-5 9 mg/dL, Acceptable >59 mg/dL, High: Negative risk factor for coronary heart disease <40 mg/dL, Low: Positive risk factor for coronary heart disease Performed By: #### 2 4323-8, 16887-5, 3 #### [facility] [place] [facility] CLIA [id number] [address] [place] [address] [place] [facility] Cholesterol in LDL [Mass/Vol] 54 mg/dL Normal <100 [facility] Comment on above: Order Comment: Lori jaylin Type: BLOOD SPECIMEN [facility] Address: [address] [place] [address] Result Comment: <100 mg/dL, Optimal 100-129 mg/dL, Near optimal/above optimal 130-159 mg/dL, Borderline high 160-189 mg/dL, High >189 mg/dL, Very high Secondary prevention optimal LDL Cholesterol levels are recommended to be < 70 mg/dL Performed By: #### 2 4323-8, 80540-1, 3015-07 #### [facility] [place] [facility] CLIA [id number] [address] [place] [address] [facility] Cholesterol in LDL/Cholesterol in HDL [Mass ratio] 0.73 {ratio} Normal <2.54 [facility] Comment on above: Order Comment: Speci men Type: BLOOD SPECIMEN [facility] Address: [address] [place] [address] Result Comment: Jose Maria michele: 1. National Cholesterol Education Program ATP III Guideline At-A-Glance Quick Desk Reference: National Heart, Lung, and Blood [place]. National Institutes of Health. 2001: NIH Publication No. 01-3305. 2. An International Atherosclerosis Society position paper: global recommendations for the management of dyslipidemia: executive summary, Atherosclerosis. 2014: 232(2):410-413. Performed By: #### 2 4323-8, 04902-8, 3015-07 #### [facility] CLIA [id number] [address] [place] [address] [place] [facility] Cholesterol in VLDL [Mass/Vol] 31 mg/dL High <30 [facility] Comment on above: Order Comment: Octaviamarii mosqueda Type: BLOOD SPECIMEN Ordering Facility: [facility] Address: [address] [place] [address] Performed By: #### 2 4323-8, 74533-9, 3 #### [facility] CLIA [id number] [address] [place] [address] [place] Cholesterol non HDL [Mass/Vol] 85 mg/dL Normal <130 [facility] Comment on above: Order Comment: Speci men Type: BLOOD SPECIMEN Ordering Facility: [facility] Address: [address] [place] [address] Result Comment: <130 mg/dL, Optimal 130-159 mg/dL, Near optimal/above optimal 160-189 mg/dL, Borderline high 190-219 mg/dL, High >219 mg/dL, Very high Secondary prevention optimal non HDL Cholesterol levels are recommended to be <100 mg/dL Performed By: #### 2 4323-8, 70247-3, 3016-3 #### [facility] CLIA [id number] [address] [place] [address] [facility] Cholesterol.total/Chol esterol in HDL [Mass ratio] 2.15 {ratio} Normal <5.10 [facility] Comment on above: Order Comment: Speci men Type: BLOOD SPECIMEN Ordering Facility: [facility] Address: [address] [place] [address] Performed By: #### 2 4323-8, 34021-3, 3016-3 #### [facility] CLIA [id number] [address] [place] [address] [place] FASTING TIME 12 hrs Normal [facility] Comment on above: Order Comment: Speci men Type: BLOOD SPECIMEN Ordering Facility: [facility] Address: [address] [place] [address] Performed By: #### 2 4323-8, 61106-7, 3016-3 #### [facility] CLIA [id number] [address] [place] [address] [facility] Triglyceride [Mass/Vol] 153 mg/dL High <150 [facility] Comment on above: Order Comment: Speci men Type: BLOOD SPECIMEN Ordering Facility: [facility] Address: [address] [place] [address] Result Comment: <150 mg/dL, Normal 150-199 mg/dL, Borderline high 200-499 mg/dL, High >499 mg/dL, Very high Performed By: #### 2 4323-8, 32129-3, 3016-3 #### [facility] CLIA [id number] [address] [place] [address] [place] T3 SerPl-mCncon 11-25-2023 T3 [Mass/Vol] 99 ng/dL Normal 79-165 [facility] Comment on above: Order Comment: Speci men Type: BLOOD SPECIMENOrdering Facility: [facility] Address: [address] [place] [address] Performed By: #### 3 024-7, 3053-6 ####[facility] [id number] [address] T4 Free SerPl-mCncon 024 Free T4 [Mass/Vol] 1.6 ng/dL Normal 0.9-1.7 [facility] Comment on above: Order Comment: Speci men Type: BLOOD SPECIMENOrdering Facility: [facility] Address: [address] [place] [address] Performed By: #### 3 024-7, 305-6 ####[facility] [id number] [address] OF [facility] TSH SerPl-aCncon 11-25-2023 TSH Qn 4.510 m[IU]/L High 0.270-4.20 0 [facility] Comment on above: Order Comment: Speci men Type: BLOOD SPECIMENOrdering Facility: [facility] Address: [address] [place] [address] Performed By: #### 2 4323-8, 54912-0, 3016-3 ####[facility] [id number] [address] OF [facility] CNTHERAPYon 11-23-2023 CNTHERAPY OT/PT/Speech Visit ( LDPT) HARDEEPMICHAEL ([id number]) 1940 F Date Time Provider Department 11/23/23 2:15 PM SARAH MERCHANT Date Time Provider Department Center 11/23/2023 2:15 PM [id number] MERCHANT [facility] Reason for Visit: Physical Therapy [503] Primary Visit Diagnosis:Weakness [R53.1] Other Visit Diagnoses:Difficulty walking [R26.2] Imbalance [R26.89] Allergies As of Date: 11/23/2023 Noted Allergy Reaction CIPROFLOXACIN 09/05/2018 2 - Rash DEMEROL (MEPERIDINE (PF)) 02/06/2011 11 - Vomiting OPIOIDS - MORPHINE ANALOGUES 03/17/2001 5 - Intolerance Comments: nausea, dizzy, sees things OPIOIDS-MEPERIDINE AND RELATED 02/17/2001 Comments: nausea/vomiting PENICILLIN G 02/17/2001 Comments: imani PRAVACHOL (PRAVASTATIN SODIUM) 03/09/2016 14 - Other: See Comments Comments: Leg cramps SULFA (SULFONAMIDE ANTIBIOTICS) 03/17/2001 Comments: imani VICODIN (HYDROCODONE-ACETAMINOPHE* 5 - Intolerance Comments: dizzy,nausea,vomiting,headac he ZITHROMAX (AZITHROMYCIN) 05/20/2017 5 - Intolerance Date Reviewed: 10/14/2023 Reviewed by: Marisol Cano LPN - Fully Assessed Prescriptions as of 11/23/2023 - traZODone (DESYREL) 100 mg tablet Take 1 tablet by mouth daily at bedtime. - PARoxetine (PAXIL) 20 mg tablet Take 1 tablet by mouth once daily. In the evening - LORazepam (ATIVAN) 0.5 mg Take 1 tablet by mouth two times a day as needed (anxiety attack). - rosuvastatin (CRESTOR) 10 mg tablet Take 1 tablet by mouth daily at bedtime. - guaiFENesin (MUCINEX) 600 mg 12 hr tablet Take 1 tablet by mouth two times a day as needed for cold/allergy symptoms. - levothyroxine (SYNTHROID) 25 mcg tablet Take 1 tablet by mouth once daily. In the morning, Take on empty stomach at least 30 min before eating. For thyroid. - vitamin B complex (B COMPLEX 1 ORAL) Take by mouth. - ferrous sulfate (SLOW FE ORAL) Take by mouth twice daily. - RESTASIS 0.05 % ophthalmic emulsion - Azelastine HCl (OPTIVAR) 0.05 % ophthalmic solution - albuterol HFA (PROVENTIL HFA, VENTOLIN HFA) 90 mcg/actuation inhaler Inhale 2 Puffs as instructed every 4 hours as needed. - hydroCHLOROthiazide (HYDRODIURIL, ESIDRIX) 12.5 mg capsule Take 2 capsules by mouth once daily. - sucralfate (CARAFATE) 100 mg/mL suspension Take 10 mL by mouth four times daily. - Cholecalciferol, Vitamin D3, 50 mcg (2,000 unit) cap Take 1 capsule by mouth once daily. - aspirin, enteric coated (ASPIRIN, ENTERIC COATED) 81 mg EC tablet Take 81 mg by mouth once daily. - PACERONE 200 mg tablet Take 200 mg by mouth once daily. - ubidecarenone (COQ-10 ORAL) Take by mouth. - diltiazem CD (CARDIZEM CD) 240 mg 24 hr capsule Take 1 capsule by mouth once daily. - losartan (COZAAR) 100 mg tablet Take 1 tablet by mouth once daily. Normal [facility] [id number] 11-15-2023 [id number] O ID: [id number] Author: SARAH MERCHANT PT Service: ? Author Type: Physical Therapist Type: [id number] Filed: 11/15/2023 18:46 Note Text: [facility] Physical Therapy Plan of Care Certification Patient Name: Michael Meier : 1940 [facility] #: [id number] Date: 11/15/2023 To: Geeta Cadet,* From Therapist: Sarah Merchant PT RE: Patient Certification/ Recertification Your review, approval and electronic signature are required in order to comply with Payor: MEDICARE / Plan: MEDICARE A AND B / Product Type: Medicare / regulations. The identified Physical Therapy PLAN OF CARE for the patient is as follows: R53.1 Weakness (primary encounter diagnosis) R26.2 Difficulty walking R26.89 Imbalance PLAN OF CARE: Assessment: Michael Meier presents with chief complaint of general weakness, falls and difficulty walking that interferes with walking, stair negotiation, heavy exertion, lifting, physical activities, recreational activities, kneeling, carrying . She presents with impairments in ADL's, balance, gait, independence in exercise, overall function, strength, and symptom management. Patient did not complete the PROMIS? (Patient Reported Outcome Measures Information System). Prognosis for therapy is Good due to: positive past response to therapy, good support system/ coping skills Fair due to: advanced age, chronic nature of impairments . Pt presents s/p ortho consult for R knee pain s/p recent fall (which has resolved) with strength, balance and gait deficits and increased fall risk. She will benefit from skilled therapy services to meet the goals established for this plan of care as noted below. Assessment Fall Risk : Active at risk Goals for Episode of Care: created on 11/15/23 through 01/14/24 [place] in home exercise program. Patient will demonstrate increase in B UE AND LE strength to 4+/5 during manual muscle testing in order to improve function for home management tasks and prior functional tasks. Patient will Improve Timed Up and Go to 12 seconds to demonstrate decreased risk of falling. Patient will improve 5 time sit to stand to demonstrate improvement in functional lower extremity strength. Patient will report no falls. Patient will demonstrate independent and proper use of assisstive device to allow for improved walking quality and safety therefore reducing the risk of falls. Patient Goals: I don't know why I'm here. I guess maybe to strengthen my legs Planned Interventions, Frequency, and Duration: Current Frequency: 2x/week Duration: 8 weeks Total Number of Visits Planned: 15 Planned Treatment Interventions: Therapeutic exercise (12284), Neuromuscular re-education (10688), Therapeutic activities (28269), Self-senior care management (75671), Gait Training (97333), Patient/Family/Caregiver Education, General Conditioning PLAN FOR NEXT VISIT: address LE AND UE strength, endruance, gait AND balance. try/practice floor transfer as able Patient demonstrates good understanding of plan of care and treatment. The above goals and plan of care were discussed and agreed upon by patient/family. For further details regarding this patient refer to the Physical Therapy electronically documented visit dated 11/15/2023. Provider Attestation I have reviewed the treatment plan for Michael Meier, [facility]# [id number] for the period of 11/15/23 -- 01/14/24, established on 11/15/2023. Signature certifies the need for therapy services. Normal [facility] CNTHERAPYon 11-15-2023 CNTHERAPY OT/PT/Speech Visit ( LDPT) MICHAEL MEIER ([id number]) 1940 F Date Time Provider Department 11/15/23 4:30 PM SARAH MERCHANT LDFRANTZ Date Time Provider Department Center 11/15/2023 4:30 PM [id number], CARLA LDPT [facility] Reason for Visit: PT Eval [747] Primary Visit Diagnosis:Weakness [R53.1] Other Visit Diagnoses:Difficulty walking [R26.2] Imbalance [R26.89] Allergies As of Date: 11/15/2023 Noted Allergy Reaction CIPROFLOXACIN 09/05/2018 2 - Rash DEMEROL (MEPERIDINE (PF)) 02/06/2011 11 - Vomiting OPIOIDS - MORPHINE ANALOGUES 03/17/2001 5 - Intolerance Comments: nausea, dizzy, sees things OPIOIDS-MEPERIDINE AND RELATED 02/17/2001 Comments: nausea/vomiting PENICILLIN G 02/17/2001 Comments: imani PRAVACHOL (PRAVASTATIN SODIUM) 03/09/2016 14 - Other: See Comments Comments: Leg cramps SULFA (SULFONAMIDE ANTIBIOTICS) 03/17/2001 Comments: hives VICODIN (HYDROCODONE-ACETAMINOPHE* 5 - Intolerance Comments: dizzy,nausea,vomiting,headac he ZITHROMAX (AZITHROMYCIN) 05/20/2017 5 - Intolerance Date Reviewed: 10/14/2023 Reviewed by: Marisol Cano LPN - Fully Assessed Prescriptions as of 11/23/2023 - traZODone (DESYREL) 100 mg tablet Take 1 tablet by mouth daily at bedtime. - PARoxetine (PAXIL) 20 mg tablet Take 1 tablet by mouth once daily. In the evening - LORazepam (ATIVAN) 0.5 mg Take 1 tablet by mouth two times a day as needed (anxiety attack). - rosuvastatin (CRESTOR) 10 mg tablet Take 1 tablet by mouth daily at bedtime. - guaiFENesin (MUCINEX) 600 mg 12 hr tablet Take 1 tablet by mouth two times a day as needed for cold/allergy symptoms. - levothyroxine (SYNTHROID) 25 mcg tablet Take 1 tablet by mouth once daily. In the morning, Take on empty stomach at least 30 min before eating. For thyroid. - vitamin B complex (B COMPLEX 1 ORAL) Take by mouth. - ferrous sulfate (SLOW FE ORAL) Take by mouth twice daily. - RESTASIS 0.05 % ophthalmic emulsion - Azelastine HCl (OPTIVAR) 0.05 % ophthalmic solution - albuterol HFA (PROVENTIL HFA, VENTOLIN HFA) 90 mcg/actuation inhaler Inhale 2 Puffs as instructed every 4 hours as needed. - hydroCHLOROthiazide (HYDRODIURIL, ESIDRIX) 12.5 mg capsule Take 2 capsules by mouth once daily. - sucralfate (CARAFATE) 100 mg/mL suspension Take 10 mL by mouth four times daily. - Cholecalciferol, Vitamin D3, 50 mcg (2,000 unit) cap Take 1 capsule by mouth once daily. - aspirin, enteric coated (ASPIRIN, ENTERIC COATED) 81 mg EC tablet Take 81 mg by mouth once daily. - PACERONE 200 mg tablet Take 200 mg by mouth once daily. - ubidecarenone (COQ-10 ORAL) Take by mouth. - diltiazem CD (CARDIZEM CD) 240 mg 24 hr capsule Take 1 capsule by mouth once daily. - losartan (COZAAR) 100 mg tablet Take 1 tablet by mouth once daily. Letter Text Normal [facility] XR CHEST 2V FRONTAL/LATon [facility] EGD DIAGNOSTICon 01-08-2022 [facility] GLUCOSE, BLOOD (POC)on 10-20 Glucose [Mass/Vol] 116 mg/dL Abnormal 74 - 99 mg/dL [facility] UA DIP, URINE (POC)on 2021 BILIRUBIN UA (POCT) Negative Negative [facility] CLARITY UA (POCT) Clear [facility] COLOR UA (POCT) [place] [facility] GLUCOSE UA (POCT) 100 mg/dL Abnormal Negative mg/dL [facility] HEMOGLOBIN/BLOOD UA (POCT) Large Abnormal Negative [facility] KETONE UA (POCT) Trace Negative mg/dL [facility] LEUKOCYTES UA (POCT) Large Abnormal Negative [facility] NITRITE UA (POCT) Positive Abnormal Negative [facility] PH UA (POCT) 5.0 4.5 - 8.0 [facility] Protein Ql (U) 100 mg/dL Abnormal Negative mg/dL [facility] SPECIFIC GRAVITY UA (POCT) <=1.005 Abnormal 1.005 - 1.030 [facility] UROBILINOGEN UA (POCT) 4.0 E.U./dL Abnormal Eli l E.U./dL [facility] Basophil percentageon 2021 Chloride [Moles/Vol] 100 mmol/L 98-107 [facility] Work Phone: Glucose [Mass/Vol] 92 mg/dL 74-106 [facility] Work Phone: Potassium [Moles/Vol] 3.8 mmol/L 3.5-5.1 [facility] Work Phone: Comment on above: Slight Hemolysis, Re sult may be falsely increased. Sodium [Moles/Vol] 135 mmol/L 136-145 [facility] Work Phone: Laboratory - Chemistry and C hemistry - challengeon 09-10-2021 CO2 [Moles/Vol] 30.0 mmol/L 21.0-32.0 [facility] Work Phone: Urea nitrogen/Creatinine [Mass ratio] 19.7 mg/mg 10-20 [facility] Work Phone: No Panel Informationon 09-10 Estimated GFR (MDRD) Amer 82 mL/min >60 [facility] Work Phone: Comment on above: GFR Calc Estimated GFR (MDRD) Non-Af Amer 67 mL/min >60 [facility] Work Phone: Comment on above: Non- GFR Calc Serum or plasma calcium julee urement (mass/volume)on 09-10-2021 Calcium [Mass/Vol] 8.8 mg/dL 8.5-10.1 [facility] Work Phone: Serum or plasma creatinine m easurement (mass/volume)on 09-10-2021 Creatinine [Mass/Vol] 0.86 mg/dL 0.55-1.02 [facility] Work Phone: Comment on above: The validity of the calculated GFR & GFRAA in patients over 70 years has not been determined. Clinical correlation is essential. Serum or plasma urea nitroge n measurement (mass/volume)on 09-10-2021 Urea nitrogen [Mass/Vol] 17 mg/dL 7-18 [facility] Work Phone: Thin prep Papanicolaou smear with manual screeningon 09-10-2021 Thin prep Papanicolaou smear with manual screening 5 5-15 [facility] Work Phone: Basophil percentageon 2021 Basophil percentage 0 SEEN /hpf [facility] Work Phone: Chloride [Moles/Vol] 103 mmol/L 98-107 [facility] Work Phone: Glucose [Mass/Vol] 88 mg/dL 74-106 [facility] Work Phone: [phone] Potassium [Moles/Vol] 3.7 mmol/L 3.5-5.1 [facility] Work Phone: [phone] Sodium [Moles/Vol] 138 mmol/L 136-145 [facility] Work Phone: [phone] WBC (Bld) [#/Vol] 7.3 10*3/uL 4.4-11.0 [facility] Work Phone: [phone] Bilirubin Test strip Ql (U)o n 06-02-2021 Bilirubin Ql (U) Negative Negative [facility] Work Phone: [phone] Blood erythrocytes count (nu mber/volume)on 06-02-2021 RBC (Bld) [#/Vol] 4.57 10*6/uL 4.2-5.4 [facility] Work [facility]: [phone] Blood hemoglobin measurement (mass/volume)on 06-02-2021 Hemoglobin (Bld) [Mass/Vol] 13.5 g/dL 12.0-15.0 [facility] Work Phone: [phone] Blood platelet mean volumeon 06-02-2021 Platelet mean volume (Bld) [Entitic vol] 10.3 fL 6.2-12.0 [facility] Work Phone: [phone] Determination of erythrocyte mean corpuscular volume (MCV)on 06-02-2021 MCV (RBC) [Entitic vol] 88.8 fL 81-99 [facility] Work Phone: Hematocrit Auto (Bld) [Volum e fraction]on 06-02-2021 Hematocrit (Bld) [Volume fraction] 40.6 % 37-47 [facility] Work Phone: [phone] INR in Blood by Coagulation assayon 06-02-2021 INR Coag (Bld) [Relative time] 1.1 {INR} [facility] Work Phone: Ketones Test strip Ql (U)on 06-02-2021 Ketones Ql (U) Negative Negative [facility] Work Phone: [phone] Laboratory - Chemistry and C hemistry - challengeon 06-02-2021 CO2 [Moles/Vol] 30.0 mmol/L 21.0-32.0 [facility] Work Phone: Urea nitrogen/Creatinine [Mass ratio] 18.6 mg/mg 10-20 [facility] Work Phone: Laboratory - Coagulationon 0 06-02-2021 PT Coag (PPP) [Time] 13.1 s 11.7-14.9 [facility] Work Phone: Laboratory - Hematology and Cell countson 06-02-2021 Erythrocyte distribution width (RBC) [Entitic vol] 45.3 fL 35.1-43.9 [facility] Work Phone: Erythrocyte distribution width (RBC) [Ratio] 13.9 % 11.6-14.6 [facility] Work Phone: MCH (RBC) [Entitic mass] 29.5 pg 27.0-32.0 [facility] Work Phone: MCHC Auto (RBC) [Mass/Vol]on 06-02-2021 MCHC (RBC) [Mass/Vol] 33.3 g/dL 32-36 [facility] Work Phone: Mucus LM Ql (Urine sed)on Mucus Ql (Urine sed) 0 SEEN /hpf [facility] Work Phone: Nitrite Test strip Ql (U)on 06-02-2021 Nitrite Ql (U) Negative Negative [facility] Work Phone: No Panel Informationon 06-02 Estimated GFR (MDRD) Amer 104 mL/min >60 [facility] Work Phone: Comment on above: GFR Calc Estimated GFR (MDRD) Non-Af Amer 86 mL/min >60 [facility] Work Phone: Comment on above: Non- GFR Calc Thyroid Stimulating Hormone (TSH) 1.91 uIU/mL 0.358-3.74 [facility] Work Phone: Platelets bldon 06-02-2021 Platelets (Bld) [#/Vol] 240 10*3/uL 150-450 [facility] Work Phone: Protein Test strip Ql (U)on 06-02-2021 Protein Ql (U) 15 mg/dl Negative [facility] Work Phone: Serum or plasma calcium julee urement (mass/volume)on 06-02-2021 Calcium [Mass/Vol] 8.6 mg/dL 8.5-10.1 [facility] Work Phone: Serum or plasma creatinine m easurement (mass/volume)on 06-02-2021 Creatinine [Mass/Vol] 0.70 mg/dL 0.55-1.02 [facility] Work Phone: Comment on above: The validity of the calculated GFR & GFRAA in patients over 70 years has not been determined. Clinical correlation is essential. Serum or plasma urea nitroge n measurement (mass/volume)on 06-02-2021 Urea nitrogen [Mass/Vol] 13 mg/dL 7-18 [facility] Work Phone: Squamous epithelial cells de tection in urine sediment by light microscopyon 06-02-2021 Epithelial cells.squamous LM Ql (Urine sed) 0 SEEN /hpf [facility] Work Phone: Thin prep Papanicolaou smear with manual screeningon 06-02-2021 Thin prep Papanicolaou smear with manual screening 5 5-15 [facility] Work Phone: Urine blood detectionon - RBC Ql (U) Negative Negative [facility] Work Phone: RBC Ql (U) 0 SEEN /hpf [facility] Work Phone: Urine clarityon 06-02-2021 Clarity (U) Sl. Cloudy Clear [facility] Work Phone: Urine color determinationon 06-02-2021 Color (U) Yellow Yellow [facility] Work Phone: Urine glucose detectionon Glucose Ql (U) Normal mg/dl Normal [facility] Work Phone: Urine leukocyte esterase det ection by dipstickon 06-02-2021 Leukocyte esterase Test strip Ql (U) 25 /ul Negative [facility] Work Phone: [phone] Urine pHon 06-02-2021 pH (U) 6.5 [pH] [facility] Work Phone: Urine sediment bacteria coun t by microscopy (number/high power field)on 06-02-2021 Bacteria LM.HPF (Urine sed) [#/Area] 1 /[HPF] None Seen [facility] Work Phone: Urine specific gravity measu rementon 06-02-2021 Specific gravity (U) [Rel density] 1.015 [facility] Work Phone: Urobilinogen Auto test strip Ql (U)on 06-02-2021 Urobilinogen Ql (U) Normal mg/dl Normal [facility] Work Phone: BASIC METABOLIC PANELon 08-2 Anion gap [Moles/Vol] 8 mmol/L Low 10 - 20 [facility] Comment on above: Performed By: #### B MP #### [address] [address] Calcium [Mass/Vol] 8.4 mg/dL Low 8.6 - 10.3 [facility] Comment on above: Performed By: #### B MP #### [address] [address] Chloride [Moles/Vol] 104 mmol/L Normal 98 - 107 [facility] Comment on above: Performed By: #### B MP #### [address] [address] Creatinine [Mass/Vol] 0.50 mg/dL Normal 0.50 - 1.05 [facility] Comment on above: Performed By: #### B MP #### [address] [address] GFR- AM. >60 Normal >60 [facility] Comment on above: Result Comment: CALC ULATIONS OF ESTIMATED GFR ARE PERFORMED USING THE MDRD STUDY EQUATION FOR THE IDMS-TRACEABLE CREATININE METHODS. CLIN CHEM 2007;53:766-72 Performed By: #### B MP #### [address] [address] GFR-NON AM. >60 Normal >60 [facility] Comment on above: Performed By: #### B MP #### [address] [address] Glucose [Mass/Vol] 90 mg/dL Normal 74 - 99 [facility] Comment on above: Performed By: #### B MP #### [address] [address] HCO3 (Bld) [Moles/Vol] 31 mmol/L Normal 21 - 32 [facility] Comment on above: Performed By: #### B MP #### [address] [address] Potassium [Moles/Vol] 3.8 mmol/L Normal 3.5 - 5.3 [facility] Comment on above: Performed By: #### B MP #### [address] [address] Sodium [Moles/Vol] 139 mmol/L Normal 136 - 145 [facility] Comment on above: Performed By: #### B MP #### [address] [address] Urea nitrogen [Mass/Vol] 10 mg/dL Normal 6 - 23 [facility] Comment on above: Performed By: #### B MP #### [address] [address] BNPon 12-21-2020 Natriuretic peptide B (Bld) [Mass/Vol] 212 pg/mL High 0 - 99 [facility] Comment on above: Result Comment: . <1 00 pg/mL - Heart failure unlikely 100-299 pg/mL - Intermediate probability of acute heart . failure exacerbation. Correlate with clinical . context and patient history. >=300 pg/mL - Heart Failure likely. Correlate with clinical . context and patient history. BNP testing is performed using different testing methodology at [facility] than at other [facility]. Direct result comparisons should only be made within the same method. Performed By: #### B NP2 #### [address] [address] CBC AND DIFFERENTIALon 12-21 Basophils (Bld) [#/Vol] 0.00 10*3/uL Normal 0.00 - 0.10 [facility] Comment on above: Performed By: #### C BCDF #### [address] [address] Basophils/100 WBC (Bld) 0.9 % Normal 0.0 - 2.0 [facility] Comment on above: Performed By: #### C BCDF #### [address] [address] Eosinophils (Bld) [#/Vol] 0.10 10*3/uL Normal 0.00 - 0.40 [facility] Comment on above: Performed By: #### C BCDF #### [address] [address] Eosinophils/100 WBC (Bld) 2.5 % Normal 0.0 - 6.0 [facility] Comment on above: Performed By: #### C BCDF #### [address] [address] Erythrocyte distribution width (RBC) [Ratio] 15.3 % High 11.5 - 14.5 [facility] Comment on above: Performed By: #### C BCDF #### [address] [address] Hematocrit (Bld) [Volume fraction] 38.9 % Normal 36.0 - 46.0 [facility] Comment on above: Performed By: #### C BCDF #### [address] [address] Hemoglobin (Bld) [Mass/Vol] 12.8 g/dL Normal 12.0 - 16.0 [facility] Comment on above: Performed By: #### C BCDF #### [address] [address] Lymphocytes (Bld) [#/Vol] 0.70 10*3/uL Low 0.80 - 3.00 [facility] Comment on above: Performed By: #### C BCDF #### [address] [address] Lymphocytes/100 WBC (Bld) 13.3 % Normal 13.0 - 44.0 [facility] Comment on above: Performed By: #### C BCDF #### [address] [address] MCHC (RBC) [Mass/Vol] 33.0 g/dL Normal 32.0 - 36.0 [facility] Comment on above: Performed By: #### C BCDF #### [address] [address] MCV (RBC) [Entitic vol] 88 fL Normal 80 - 100 [facility] Comment on above: Performed By: #### C BCDF #### [address] [address] Monocytes (Bld) [#/Vol] 0.60 10*3/uL Normal 0.05 - 0.80 [facility] Comment on above: Performed By: #### C BCDF #### [address] [address] Monocytes/100 WBC (Bld) 11.5 % Normal 2.0 - 10.0 [facility] Comment on above: Performed By: #### C BCDF #### [address] [address] Neutrophils (Bld) [#/Vol] 3.80 10*3/uL Normal 1.60 - 5.50 [facility] Comment on above: Result Comment: Perc ent differential counts (%) should be interpreted in the context of the absolute cell counts (cells/L). Performed By: #### C BCDF #### [address] [address] Neutrophils/100 WBC (Bld) 71.8 % Normal 40.0 - 80.0 [facility] Comment on above: Performed By: #### C BCDF #### [address] [address] NUCLEATED RBC 0.2 /100 WBC Normal [facility] Comment on above: Performed By: #### C BCDF #### [address] [address] Platelets (Bld) [#/Vol] 160 10*3/uL Normal 150 - 450 [facility] Comment on above: Performed By: #### C BCDF #### [address] [address] RBC 4.44 x10E12/L Normal 4.00 - 5.20 [facility] Comment on above: Performed By: #### C BCDF #### [address] [address] WBC (Bld) [#/Vol] 5.3 10*3/uL Normal 4.4 - 11.3 [facility] Comment on above: Performed By: #### C BCDF #### [address] [address] CHEST 1 VIEWon 12-21-2020 CHEST 1 VIEW Patient Name: MICHAEL MEIER STUDY: CHEST 1 VIEW; 12/21/2020 3:49 pm INDICATION: SOB. COMPARISON: None. ACCESSION NUMBER(S): [id number] ORDERING CLINICIAN: BERNIE BARAJAS FINDINGS: CARDIOMEDIASTINAL SILHOUETTE: Cardiomediastinal silhouette is normal in size and configuration. There is a left subclavian bichamber pacemaker with a single tip in the right atrium the single tip in the right ventricle. LUNGS: Lungs are clear. ABDOMEN: No remarkable upper abdominal findings. BONES: No acute osseous changes. There are surgical clips in the left breast. IMPRESSION: No acute cardiopulmonary process. Electronically signed by: TIFF FELDMAN MD Normal [facility] CORONAVIRUS 2019 BY PCRon SARS-CoV-2 (COVID-19) RNA DUSTIN+probe Ql (Unsp spec) Not detected Normal Not Detected [facility] Comment on above: Result Comment: . This test has received FDA Emergency Use Authorization (EUA) and has been verified by [facility]. This test is only authorized for the duration of time that circumstances exist to justify the authorization of the emergency use of in vitro diagnostic tests for the detection of SARS-CoV-2 virus and/or diagnosis of COVID-19 infection under section 564(b)(1) of the Act, 21 U.S.C. 360bbb-3(b)(1), unless the authorization is terminated or revoked sooner. [facility] is certified under CLIA-88 as qualified to perform high complexity testing. Testing is performed in the [facility] laboratory located at [address] [place] [address]. SARS-CoV-2/Flu/RSV Multiplex Test: Fact sheet for providers: https://www.fda.gov/media/018052/download Fact sheet for patients: https://www.fda.gov/media/200867/download Performed By: #### C OV19 ####[place] [address] DATE OF SYMPTOM ONSET [[id number]]? [id number] [facility] Comment on above: Performed By: #### C OV19 ####[place] [address] Lab Specimen Source Nasal, Nasopharyngeal [facility] Comment on above: Performed By: #### C OV19 ####[place] [address] Covid 19 Resultson 1 SARS-CoV-2 (COVID-19) RNA DUSTIN+probe Ql (Unsp spec) NEGATIVE COVID-19 Test Coronaviruses are common world-wide and are the cause of many common colds. SARS-COV2 is a new coronavirus that began circulating worldwide in 2019 so we are calling it COVID-19. It has been estimated that four out of five patients with COVID-19 will recover at home without the need for medical attention. Symptoms of COVID-19 may include cough, fever, shortness of breath, loss of taste or smell and other flu-like symptoms including chills, sore muscles, sore throat, and headache. Severe illness is more common in older people and people with other health problems such as high blood pressure, obesity, and immune system problems. If the test is positive, you have COVID-19. You will be contacted by the ordering physicians office and instructed to remain on home isolation, in accordance with CDC guidelines. You may also be contacted by the [place] Department [facility] to see if any of your close contacts may have been exposed to the virus and need to quarantine. If the test is negative, you likely do not have COVID-19 at this time, but you still may have a different illness that can spread to other people (like Influenza, or the Flu) and could still be at risk for getting COVID-19. We recommend that you stay away from other people to limit the spread of illness until your symptoms are improving and you are fever-free for 24 hours without the use of fever lowering medications such as acetaminophen or ibuprofen. No test is 100% accurate so if you are still concerned you may have COVID-19, talk to your doctor about the need to continue to stay away from others. Medicines Unless your provider told you not to use the following: Acetaminophen (Tylenol and others) is generally safe. Anti-inflammatory medications, such as Ibuprofen (Advil or Motrin) or Naproxen (Aleve) can also be used. Cglj-owx-ohtnbur cough and cold medicines can be used according to the instructions on the package. Some zvib-crl-parbman medicines also contain acetaminophen. Make sure you are not taking more than your recommended dose. For those not hospitalized, there is no specific treatment available for this illness. Antibiotics do not treat Coronaviruses. Follow-Up Follow up with your doctor by scheduling a virtual visit or consider follow-up at one of our urgent care fever clinics. If you are having difficulty breathing, or are very weak and having difficulty standing, this is a medical emergency. Call 911 or have someone take you to the nearest emergency room immediately. If possible, wear a facemask. Additional guidance from the CDC for patients who tested POSITIVE for COVID-19 How to isolate: Isolate yourself in a specific room at home and limit your contact with others. Use a separate bathroom from other members of the household, when possible. Leave home only to get essential medical care. Do not go to work, school or public areas. Avoid using public transportation, ride-sharing, or taxis. Restrict contact with pets and other animals. If you must care for your pet or be around animals while you are sick, wash your hands before and after your interaction and wear a facemask. Make sure that shared spaces in the home have good airflow, such as by an air conditioner or an opened window, weather permitting. Personal Hygiene Procedures: Wear a face mask when in the same room as other people or pets. If a face mask interferes with your breathing, others should wear a mask when sharing space with you. Frequent hand-washing: wash your hands with soap and water for at least 20 seconds. If soap and water are not available, use alcohol-based hand ordnance keeper. Avoid touching your eyes, nose, and mouth with unwashed hands. Household Hygiene Procedures: Avoid sharing personal household items such as dishes, glassware, cups, eating utensils, towels or bedding with other people or pets in your home. After use, these items should be washed with soap and hot water. Disinfect all high-touch surfaces every day with antibacterial cleaning solutions such as Lysol wipes, bleach, cleansers, etc. High-touch surfaces include tabletops, doorknobs, bathroom fixtures, toilets, phones, keyboards, tablets and bedside tables. Immediately clean any surfaces that may have blood, poop or body fluids on them, using antibacterial cleaning solutions such as Lysol wipes, bleach, cleansers, etc. If clothing or bedding come into contact with blood, poop or body fluids, they should be washed immediately. Follow the directions on the laundry detergent and clothing labels but hot water is recommended when possible. Stopping home isolation precautions: If possible, consult your doctor before stopping home isolation precautions. According to the CDC, you can discontinue home isolation precautions when you have met both of these criteria: Your fever and respiratory symptoms have been gone for 24 flakito (more content not included)... Normal [facility] Narrative Note - Outpatiento n 12-21-2020 Narrative Note - Outpatient Narrative Note: Description Patient presented to the clinic today for evaluation of cough, wheezing/shortness of breath, chest discomfort, and known exposure to COVID-19. Visibly dyspneic upon initial presentation to the front desk agent; SpO2 checked and was 94%. In light of symptoms (and as we do not have nebulizer treatments available in this urgent care), advised would be best to seek care at the ER [facility]. Patient verbalized understanding and agreed; no questions/concerns verbalized. Declined offer for emergency transport. Electronic Signatures: Kat Gleason (MANAGER UTILITY-HATCHERY MAN) (Signed 21-Dec-2020 14:56) Authored: Narrative Note - OP Last Updated: 21-Dec-2020 14:56 by Kat Gleason (MANAGER UTILITY-HATCHERY MAN) [facility] Provider Note - ED v3on 08- Provider Note - ED v3 Provider Note: Chart Review: HISTORY OF PRESENTING ILLNESS MICHAEL is a 80 year old Female and was seen by me at 21-Dec-2020 15:06 for a chief complaint of shortness of breath (Pt complaint of shortness of breath, cough and weakness starting wednesday and was exposed to covid)(1). Triage Information: Most recent Vital Sign Value Date Temp (F): 100 12-21-2020 15:03 Temp (C): 37.7 12-21-2020 15:03 Heart Rate (beats/min): 71 12-21-2020 15:03 Respirations (breaths/min): 18 12-21-2020 15:03 SpO2 (%): 97 12-21-2020 15:03 BP Systolic (mm Hg): 163 12-21-2020 15:03 BP Diastolic (mm Hg): 70 12-21-2020 15:03 PAST MEDICAL HISTORY ALLERGIES/INTOLERANCES: Allergy Allergen: penicillin Type: Drug Reaction: Unknown Allergen: Demerol Type: Drug Reaction: Unknown Allergen: Vicodin Tuss Type: Drug Reaction: Unknown Allergen: sulfa drugs Type: Drug Category Reaction: Unknown HEALTH HISTORY: No documented data. OUTPATIENT MEDICATIONS: Home Medications Review Status for Reconciliation: Not Done Med Status: Patient Currently Takes Medications Drug Name: albuterol 90 mcg/inh inhalation aerosol Instructions: 2 puff(s) inhaled 4 times a day, As Needed -for cough - for wheezing Dispense with aerochamber. Drug Name: azithromycin 250 mg oral tablet Instructions: Take 2 tabs orally once on day 1 then take 1 tab(s) orally once a day on days 2-5 Drug Name: predniSONE 20 mg oral tablet Instructions: 2 tab(s) orally once a day x 5 days SIGNIFICANT EVENTS: No documented data. CRITICAL CARE RESULTS: Recent Lab Results: I have reviewed these laboratory results: Complete Blood Count + Differential 21-Dec-2020 16:01:00 ResultValue White Blood Cell Count 5.3 Nucleated Erythrocyte Count 0.2 Red Blood Cell Count 4.44 HGB 12.8 HCT 38.9 MCV 88 MCHC 33.0 PLT 160 RDW-CV 15.3 H Neutrophil % 71.8 Lymphocyte % 13.3 Monocyte % 11.5 Eosinophil % 2.5 Basophil % 0.9 Neutrophil Count 3.80 Lymphocyte Count 0.70 L Monocyte Count 0.60 Eosinophil Count 0.10 Basophil Count 0.00 Basic Metabolic Panel 21-Dec-2020 16:01:00 ResultValue Glucose, Serum 90 NA 139 K 3.8 CL 104 Bicarbonate, Serum 31 Anion Gap, Serum 8 L BUN 10 CREAT 0.50 GFR-Non >60 GFR- >60 Calcium, Serum 8.4 L Brain Natriuretic Peptide 21-Dec-2020 16:01:00 ResultValue Brain Natriuretic Peptide 212 H Troponin I, Serum 21-Dec-2020 16:01:00 ResultValue Troponin I, Serum <0.02 Coronavirus 2019 by PCR 21-Dec-2020 15:31:00 ResultValue Fluid Source Nasal, Nasopharyngeal Coronavirus 2019,PCR NOT DETECTED Reference Range: Not Detected . This test has received FDA Emergency Use Authorization (EUA) and has been verified by [facility]. This test is only authorized for the duration of time that circum Date of Symptom Onset 20201213 Radiology Results: Impression: No acute cardiopulmonary process. Xray Chest 1 View [Dec 21 2020 4:10PM] MDM MDM/ED COURSE: PMH: Reviewed PSH: Reviewed Social History: Reviewed. Allergies reviewed. HPI: This is a 80 year old female who presents to the ED today with complaints of shortness of breath, weakness, cough with clear sputum. Patient states that she was around her brother 10 days ago and he tested positive for Covid. Her symptoms started 8 days ago. She has not had Covid before. She did have both Covid vaccines. She denies any chest pain. Denies fevers. REVIEW OF SYSTEMS: All other systems reviewed and negative except as listed in HPI. PHYSICAL EXAM: GENERAL: Vitals noted, no distress. Alert and oriented x 3. Non-toxic. NECK: Supple. No masses. No midline tenderness. No meningeal signs. CARDIAC: Regular rate, rhythm. No murmurs rubs or gallops. No JVD. PULMONARY: Lungs with wheezes noted bilaterally, left worse than right. No rales or rhonchi. No respiratory distress. ABDOMEN: Soft, nondistended, and nontender. No peritoneal signs. Bowel sounds are present and normoactive in all 4 quadrants. No pulsatile masses. EXTREMITIES: No peripheral edema. SKIN: No rash. Warm, dry, and intact. NEURO: No focal neurologic deficits. ED COURSE: This patient was seen and examined by myself independently She is placed on a continuous laboratory monitor with pulse oximetry monitoring. Old records and EKGs are obtained and reviewed. IV heplock is established, labs are obtained and noted above. CXR shows no acute cardiopulmonary process. COVID is negative. Wheezing is cleared on repeat evaluation. She is walking to the bathroom and comes back and pulse ox remains 96%. Patient is reassured. Encouraged to follow-up with her PCP in 2 to 3 days. We will treat as an acute bronchitis with Zithromax, prednisone, albuterol inhaler. She is discharged home in a stable condition with computer instructions (more content not included)... Normal [facility] Risk Screen - Adult Emergenc yon 12-21-2020 Risk Screen - Adult Emergency Preferred Language: Preferred Language: Preferred Language for Discussing Health Care (patient/designee)[place] Advanced Directives: Advance Directive/DNRno Family Violence Adult: Abuse Screen: Are you or have you been threatened or abused physically, emotionally, or sexually by anyoneno Learning Assessment (Patient): Learning Assessment (Patient): Patient is Able to be Assessed for Learningyes Factors Influencing Readiness to Learnacuteness of illness Factors that Impact Ability to Learnnone Devices/Methods Used to Communicatenone Learning Preferencesaudio Cultural Considerationsnone Developmental Considerationsnone Mandaeism Considerationsnone Learning Assessment (Other Learner): Learning Assessment (Other Learner): Other learner availableno Pressure Injury/TB/Substance: Pressure Injury: Pressure Injury Present on Admissionno Do you have a coughyes... Has your cough lasted longer than 2 weeksno Smoking Statusnever smoker Alcohol Usedenies Drug Usedenies Drug 2 Usedenies Admission Risk Screen: Significant IndicatorsComplete CAGE: CAGE: Is this an injured patient at a Trauma Center ([facility]/[place]): no Electronic Signatures: Kimberlee Albarran (GLYNN) (Signed 21-Dec-2020 15:07) Authored: Preferred Language, Advanced Directives, Family Violence Adult, Learning Assessment (Patient), Learning Assessment (Other Learner), Pressure Injury/TB/Substance, Pressure Injury, CAGE Last Updated: 21-Dec-2020 15:07 by Kimberlee Albarran (RN) Normal [facility] TROPONIN Ion 12-21-2020 Troponin I.cardiac [Mass/Vol] ng/mL Normal 0.00 - 0.03 [facility] Comment on above: Result Comment: LESS THAN 0.04 NG/ML: NEGATIVE REPEAT TESTING IN THREE TO SIX HOURS IF CLINICALLY INDICATED. 0.04 - 0.5 NG/ML: CONSISTENT WITH POSSIBLE CARDIAC DAMAGE AND POSSIBLE INCREASED CLINICAL RISK. SERIAL MEASUREMENTS MAY HELP ASSESS EXTENT OF MYOCARDIAL DAMAGE. >0.5 NG/ML: CONSISTENT WITH CARDIAC DAMAGE, INCREASED CLINICAL RISK AND MYOCARDIAL INFARCTION. SERIAL MEASUREMENTS MAY HELP ASSESS EXTENT OF MYOCARDIAL DAMAGE. . Note: Troponin I testing is performed using different testing methodology at [facility] than at other [facility]. Direct result comparisons should only be made within the same method. Performed By: #### T ROP2 #### [place] [address] Triage - EDon 12-21-2020 Triage - ED Chart Review: PRIMARY ASSESSMENT MICHAEL MEIER's primary assessment is Within Defined Limits. The airway is open and patent. Breathing spontaneous and unlabored with clear breath sounds bilaterally. Circulation is normal with good peripheral pulses. Skin is warm and dry and color is normal for race. ARRIVAL INFORMATION Means of Arrival: Ambulatory Mode of Arrival: private vehicle Arrival From: home Accompanied By: self Language: Spoken Language Preferred: [place] Reading Language Preferred: [place] Thread Inspector Requested: no presetter operator was requested MDRO: History of MDRO: no Present on Arrival: Device Present on Arrival to ED: no Pressure Ulcer Present on Arrival to ED: no CHIEF COMPLAINT MICHAEL MEIER is a Female patient with a chief complaint of shortness of breath (Pt complaint of shortness of breath, cough and weakness starting wednesday and was exposed to covid). Triage Date/Time: 21-Dec-2020 15:03 LEV: 3 Pain Rating (0-10): 0 = None Vital Signs: Temperature: 100.0F ( 37.7C) taken temporal Blood Pressure: 163/70 Mean: Heart Rate: 71 Respiratory Rate: 18 Pulse Oximetry: 97% on room air, no respiratory support. Height: 5 feet 5 inches. 165.1 CM Weight: 216.0 pounds. Calculated 98.0 kg. (stated) Calculated BMI (kg/m2): 35.952 Calculated BSA (m2) 2.12 Turney Coma Scale: Best Eye Response: (E4) spontaneous Best Motor Response: (M6) obeys commands Best Verbal Response: (V5) oriented Turney Score: 15 Cough lasting greater than 3 weeks: no Allergies: yes Mask applied: yes Patient has homicidal thoughts: no Symptoms Are POSITIVE For: congestion, cough, dyspnea and fever. Symptoms Are Negative For: body aches, chest pain, chills, diaphoresis, headache and malaise. Risk Screens Suicide Risk Screen In the Past Month: Have you wished you were or wished you could go to sleep and not wake up no In the Past Month: Have you had any actual thoughts of killing yourself no In Your Lifetime: Have you ever done anything, started to do anything, or prepared to do anything to end your life no Oliveira Fall Scale Screening Has the patient fallen before (or is the patient in the ED as a result of a fall) has not had a fall Does the patient have an impaired gait does not have impaired gait Is the patient cognitively impaired not cognitively impaired Interventions: Oliveira Fall Interventions: LOW INTERVENTIONS: *patient oriented to surroundings and call system, * patient/family falls education completed and documented, *patients fall status communicated during bedside handoff, *whiteboard updated, *mode of toileting discussed with patient, *bed in low position with brakes locked, *call light in reach, * non-skid footwear PAST MEDICAL HISTORY Immunization History: Last Known Tetanus Immunization: Unknown TRAVEL HISTORY Travel History Coronavirus Screening: positive for exposure Travel Exposure History: NO travel to International locations in the past 30 days PAIN Pain Scale Used: SAUL Pain Rating (0-10): 0 = None Past Medical History: Past Medical History Reviewedyes Electronic Signatures: Kimberlee Albarran) (Signed 21-Dec-2020 15:06) Entered: Risk Screens, Pain, Arrival, ABCD, Immunizations, Travel History, Chart Review, Scores, Past Medical History Authored: Quick Triage, Risk Screens, Pain, Arrival, ABCD, Immunizations, Travel History, Chart Review, Scores, Past Medical History Last Updated: 21-Dec-2020 15:06 by Kimberlee Albarran (RN) [facility] Office Visiton 10-22-2016 Documentation of current medications (procedure) Done Invalid Interpretation Code [facility] [employer] Work Phone: [phone] Fall risk assessment Yes Invalid Interpretation Code [employer] Work Phone: [phone] Clinical Lists Update: Prelo sample checker 10-21-2016 Left ventricular Ejection fraction 55 % Invalid Interpretation Code [facility] [employer] Work Phone: [phone] Office Visit: [facility] 04-15-20 Dietary management education, guidance, and counseling (procedure) yes Invalid Interpretation Code [facility] [employer] Work Phone: [phone] Protein mass conc Done [employer] Work Phone: [phone] Lab Report: Basic Metabolic Profile (BMP)on 05-28-2015 Anion gap 7 mmol/L Invalid Interpretation Code 5-15 [facility] [employer] Work Phone: [phone] Anion gap molar conc 7 mmol/L 5-[address] [facility] [employer] Work Phone: [phone] Calcium mass conc 8.8 mg/dL Invalid Interpretation Code 8.5-10.1 [employer] Work Phone: [phone] Chloride molar conc 106 mmol/L Invalid Interpretation Code 98-107 [employer] Work Phone: [phone] CO2 32.0 mmol/L Invalid Interpretation Code 21.0-32.0 [facility] Work Phone: [phone] CO2 ppres (BldV) 32.0 mmol/L 21.0-32.0 [employer] Work Phone: [phone] Creatinine mass conc 0.64 mg/dL Invalid Interpretation Code 0.55-1.20 [employer] Work Phone: [phone] eGFR (non-black) 117 mL/min/{1.73_m2} Invalid Interpretation Code >60 [employer] Work Phone: [phone] EST GFR - AA 117 mL/min >60 [employer] Work Phone: [phone] GFR/1.73 sq M predicted among non-blacks MDRD vol rate/area (S/P/Bld) 97 mL/min/{1.73_m2} Invalid Interpretation Code >60 [facility] [employer] Work Phone: [phone] Glucose 84 mg/dL Invalid Interpretation Code 70-110 [employer] Work Phone: [phone] Glucose mass conc 84 mg/dL 70-110 [facility] [employer] Work Phone: [phone] Potassium molar conc 4.6 mmol/L Invalid Interpretation Code 3.5-5.1 [employer] Work Phone: [phone] Sodium molar conc 145 mmol/L Invalid Interpretation Code 136-145 [employer] Work Phone: [phone] Urea nitrogen mass conc 12 mg/dL Invalid Interpretation Code 7-18 [employer] Work Phone: [phone] Urea nitrogen/Creatinine mass ratio 18.8 RATIO Invalid Interpretation Code 10-20 [employer] Work Phone: [phone] Office Visiton 05-28-2015 General cardiovascular disease 10Y risk [#] [place]D'Agost[place] 11 % Invalid Interpretation Code [employer] Work Phone: [phone] Tobacco smoking status NHIS Never smoker [employer] Work Phone: [phone] Tobacco use CPHS Never smoker Invalid Interpretation Code [employer] Work Phone: [phone] Clinical Lists Update: Prelo sample checker 03-07-2015 Cholesterol in HDL mass conc 63 mg/dL Invalid Interpretation Code [facility] [employer] Work Phone: [phone] Cholesterol in LDL mass conc 138 mg/dL High [facility] [employer] Work Phone: [phone] Cholesterol in LDL/Cholesterol in HDL mass ratio 2.19 Invalid Interpretation Code [employer] Work Phone: [phone] Cholesterol mass conc 227 mg/dL [facility] [employer] Work Phone: [phone] Cholesterol.total/Chol esterol in HDL mass ratio 3.60 {ratio} Invalid Interpretation Code [facility] [employer] Work Phone: [phone] Lipoprotein.pre-beta mass conc 26 mg/dL Invalid Interpretation Code [employer] Work Phone: [phone] Thyrotropin Qn 2.560 u[iU]/mL Invalid Interpretation Code [employer] Work Phone: [phone] Triglyceride mass conc 128 mg/dL Invalid Interpretation Code [employer] Work Phone: [phone] Replaced Document: Hyun Crowell CG Observationson 11-22-2014 EKG QRS axis 8 deg [employer] Work Phone: [phone] electrocardiogram interpretation Sinus Rhythm -First degree A-V block Lisa = [id number] RHYTHM Invalid Interpretation Code [employer] Work Phone: [phone] GE use only - for [employer] import when terms are not otherwise specified 452 ms Invalid Interpretation Code [employer] Work Phone: [phone] Interpretation Sinus Rhythm -First degree A-V block Lisa = [id number] RHYTHM [employer] Work Phone: [phone] P [place] -15 deg [employer] Work Phone: [phone] P wave axis, electrocardiogram -15 deg Invalid Interpretation Code [employer] Work Phone: DE Interval 246 ms [employer] Work Phone: DE interval, electrocardiogram 246 ms Invalid Interpretation Code [employer] Work Phone: Pulse (Heart Rate) 60 /min Invalid Interpretation Code [employer] Work Phone: QRS axis, electrocardiogram 8 deg Invalid Interpretation Code [employer] Phone: QRS Duration 106 ms [employer] Work Phone: QRS duration, electrocardiogram 106 ms Invalid Interpretation Code [employer] Work Phone: QT Interval new path ms [employer] Work Phone: QT interval, electrocardiogram new path ms Invalid Interpretation Code [employer] Work Phone: QTc [place] 452 ms [employer] Work Phone: T [place] 21 deg [employer] Work Phone: T wave axis, electrocardiogram 21 deg Invalid Interpretation Code [employer] Work Phone: [phone] Office Visiton 05-25-2014 cardiac risk group B Invalid Interpretation Code [facility] Work Phone: Lab Report: CBCDon 4 Absolute Neutrophil count 5.4 X10 3/UL Normal 2.0-7.7 [facility] Work Phone: ANC 5.4 X10 3/UL Normal 2.0-7.7 [facility] Work Phone: Basophils/100 leukocytes 0.6 % Normal 0-1 [facility] Work Phone: Basophils/100 WBC (Bld) 0.6 % Normal 0-1 [facility] Work Phone: Eosinophils/100 leukocytes 1.4 % Normal 0-5 [facility] Work Phone: Eosinophils/100 WBC (Bld) 1.4 % Normal 0-5 [facility] Work Phone: Erythrocytes (RBC) 4.95 10*6/uL Normal 4.2-5.[address] [facility] Work Phone: Hematocrit (HCT) 41.6 % Normal 37-47 [facility] Work Phone: Hematocrit Volume Fraction (Bld) 41.6 % Normal 37-47 [facility] Work Phone: Hemoglobin mass conc (Bld) 14.4 g/dL Normal 12.0-15.0 [facility] Work Phone: Lymphocytes/100 leukocytes 23.0 % Normal 19-41 [facility] Work Phone: Lymphocytes/100 WBC (Bld) 23.0 % Normal 19-41 [facility] Work Phone: MCH 29.1 pg Normal 27.0-32.0 [facility] Work Phone: MCH Entitic mass (RBC) 29.1 pg Normal 27.0-32.0 [facility] Work Phone: MCHC 34.6 G/GL Normal 32-36 [facility] Work Phone: MCHC mass conc (RBC) 34.6 G/GL Normal 32-[address] [facility] Work Phone: MCV 84.0 fL Normal 81-99 [facility] Work Phone: MCV Entitic volume (RBC) 84.0 fL Normal 81-99 [facility] Work Phone: Monocytes/100 leukocytes 8.0 % Normal 0-10 [facility] Work Phone: Monocytes/100 WBC (Bld) 8.0 % Normal 0-10 [facility] Work Phone: Neutrophils/100 leukocytes 66.9 % Normal 47-70 [facility] Work Phone: Neutrophils/100 WBC (Bld) 66.9 % Normal 47-70 [facility] Work Phone: Platelet mean volume Entitic volume (Bld) 10.7 fL Normal 6.2-12.0 [facility] Work Phone: Platelets 209 10*3/mm3 Normal 150-450 [facility] Work Phone: Platelets #/vol (Bld) 209 10*3/mm3 Normal 150-450 [facility] Work Phone: PMV by [place] 10.7 fL Normal 6.2-12.0 [facility] Work Phone: RBC #/vol (Bld) 4.95 10*6/uL Normal 4.2-5.4 [facility] Work Phone: WBC #/vol (Bld) 8.1 10*3/uL Normal 4.4-11.0 [facility] Work Phone: WBC (Leukocytes) 8.1 10*3/uL Normal 4.4-11.0 [facility] Work Phone: Lab Report: MGon 07-19-2013 Magnesium mass conc 1.9 mg/dL Normal 1.8-2.4 [facility] Work Phone: [phone] Lab Report: T4on 05-18-2012 T4 mass conc 11.9 ug/dL Normal 4.8-13.9 [facility] Work Phone: [phone] Lab Report: PTon 05-06-2011 INR Coag RelTime (PPP) 1.0 {INR} Normal [facility] Work Phone: [phone] INR in blood by coagulation 1.0 {INR} Normal [facility] Work Phone: [phone] prothrombin time, actual/normal, ratio 12.8 SECONDS Normal 11.9-14.4 [facility] Work Phone: [phone] PTP 12.8 SECONDS Normal 11.9-14.4 [facility] Work Phone: [phone] Lab Report: PTTon 05-06-2011 aPTT Coag time (Bld) 26 s Normal 24.1-36.[address] [facility] Work Phone: [phone] Replaced Document: [employer] E CG Observationson 05-05-2011 Pulse (Heart Rate) 420 ms Invalid Interpretation Code [facility] Work Phone: [phone] Vital Signs Date Time Vital Sign Value Performing Clinician Facility 11-02-2024 09:50-0400 Body height 165.[address] Michael Puga DO Work Phone: [facility] 11-02-2024 09:46-0400 Body mass index (BMI) [Ratio] 39.4 kg/m2 Dr. Michael Puga DO Work Phone: [facility] 11-02-2024 09:46-0400 Body weight 107.[address] Michael Puga DO Work Phone: [facility] 11-02-2024 09:46-0400 Diastolic blood pressure 62 mm[Hg] Dr. Michael Puga DO Work Phone: [facility] 11-02-2024 09:46-0400 Heart rate 59 /min Dr. Michael Puga DO Work Phone: [facility] 11-02-2024 09:46-0400 Respiratory rate 18 /min Dr. Michael Puga DO Work Phone: [facility] 11-02-2024 09:46-0400 Systolic blood pressure 152 mm[Hg] Dr. Michael Puga DO Work Phone: [facility] 10-27-2024 12:00-0400 Diastolic blood pressure 52 mm[Hg] Sarah Merchant PT Work Phone: [facility] 10-27-2024 12:00-0400 Heart rate 63 /min Sarah Merchant PT Work Phone: [facility] 10-27-2024 12:00-0400 SaO2% (BldA) [Mass fraction] 96 % Sarah Merchant PT Work Phone: [facility] 10-27-2024 12:00-0400 Systolic blood pressure 152 mm[Hg] Sarah Merchant PT Work Phone: [facility] 08-30-2024 15:17-0400 Body mass index (BMI) [Ratio] 38.27 kg/m2 Michael Puga DO Work Phone: [facility] 08-30-2024 15:17-0400 Body temperature 97 [degF] Michael Puga DO Work Phone: [facility] 08-30-2024 15:17-0400 Body weight 104.33 kg Michael Puga DO Work Phone: [facility] 08-30-2024 15:17-0400 Diastolic blood pressure 64 mm[Hg] Michael Puga DO Work Phone: [facility] 08-30-2024 15:17-0400 Heart rate 64 /min Michael Puga DO Work Phone: [facility] 08-30-2024 15:17-0400 Respiratory rate 20 /min Michael Puga DO Work Phone: [facility] 08-30-2024 15:17-0400 Systolic blood pressure 148 mm[Hg] Michael Puga DO Work Phone: [facility] 08-17-2024 15:17-0400 Diastolic blood pressure 68 mm[Hg] Asia Connie MANAGER UTILITY.HATCHERY MAN Work Phone: [facility] 08-17-2024 15:17-0400 Heart rate 61 /min Asia Rosales MANAGER UTILITY.HATCHERY MAN Work Phone: [facility] 08-17-2024 15:17-0400 SaO2% (BldA) [Mass fraction] 98 % Asia Rosales MANAGER UTILITY.HATCHERY MAN Work Phone: [facility] 08-17-2024 15:17-0400 Systolic blood pressure 136 mm[Hg] Asia Rosales MANAGER UTILITY.HATCHERY MAN Work Phone: [facility] 06-21-2024 17:27-0500 Body mass index (BMI) [Ratio] 36.78 kg/m2 Michael Puga DO Work Phone: [facility] 06-21-2024 17:27-0500 Body temperature 97.7 [degF] Michael Puga DO Work Phone: [facility] 06-21-2024 17:27-0500 Body weight 100.25 kg Michael Puga DO Work Phone: [facility] 06-21-2024 17:27-0500 Diastolic blood pressure 70 mm[Hg] Michael Puga DO Work Phone: [facility] 06-21-2024 17:27-0500 Heart rate 64 /min Michael Puga DO Work Phone: [facility] 06-21-2024 17:27-0500 Respiratory rate 20 /min Michael Puga DO Work Phone: [facility] 06-21-2024 17:27-0500 Systolic blood pressure 160 mm[Hg] Michael Puga DO Work Phone: [facility] 06-01-2024 13:20-0500 Body height 165.[address] Michael Puga DO Work Phone: [facility] 06-01-2024 13:20-0500 Body mass index (BMI) [Ratio] 36.6 kg/m2 Dr. Michael Puga DO Work Phone: [facility] 06-01-2024 13:20-0500 Body weight 99.[address] Michael Puga DO Work Phone: [facility] 06-01-2024 13:20-0500 Diastolic blood pressure 73 mm[Hg] Dr. Michael Puga DO Work Phone: [phone])270-085817 [place] [address] 06-01-2024 13:20-0500 Heart rate 60 /min Dr. Michael Puga DO Work Phone: [phone] [place] [address] 06-01-2024 13:20-0500 Respiratory rate 18 /min Dr. Michael Puga DO Work Phone: [phone] [place] [address] 06-01-2024 13:20-0500 SaO2% (BldA) [Mass fraction] 96 % Dr. Michael Puga DO Work Phone: 7(075)971-737917 [place] [address] 06-01-2024 13:20-0500 Systolic blood pressure 161 mm[Hg] Dr. Michael Puga DO Work Phone: [phone])765-853717 [place] [address] 05-11-2024 13:05-0500 Body mass index (BMI) [Ratio] 37.01 kg/m2 Keyjayy Portillo MANAGER UTILITY.HATCHERY MAN Work Phone: [facility] 05-11-2024 13:05-0500 Body weight 100.88 kg Key Portillo MANAGER UTILITY.HATCHERY MAN Work Phone: [facility] 05-11-2024 13:05-0500 Diastolic blood pressure 58 mm[Hg] Key Portillo MANAGER UTILITY.HATCHERY MAN Work Phone: [facility] 05-11-2024 13:05-0500 Heart rate 60 /min Key Portillo MANAGER UTILITY.HATCHERY MAN Work Phone: [facility] 05-11-2024 13:05-0500 SaO2% (BldA) [Mass fraction] 95 % Key Portillo MANAGER UTILITY.HATCHERY MAN Work Phone: [facility] 05-11-2024 13:05-0500 Systolic blood pressure 130 mm[Hg] Key Portillo MANAGER UTILITY.HATCHERY MAN Work Phone: [facility] 05-02-2024 12:35-0500 Body temperature 97.9 [degF] Dr. Michael Puga DO Work Phone: [facility] 05-02-2024 12:35-0500 Diastolic blood pressure 56 mm[Hg] Dr. Michael Puga DO Work Phone: [facility] 05-02-2024 12:35-0500 Heart rate 60 /min Dr. Michael Puga DO Work Phone: [facility] 05-02-2024 12:35-0500 Respiratory rate 16 /min Dr. Michael Puga DO Work Phone: [facility] 05-02-2024 12:35-0500 SaO2% (BldA) [Mass fraction] 92 % Dr. Michael Puga DO Work Phone: [facility] 05-02-2024 12:35-0500 Systolic blood pressure 150 mm[Hg] Dr. Michael Puga DO Work Phone: [facility] 05-02-2024 12:11-0500 Body weight 101.[address] Michael Puga DO Work Phone: [facility] 05-02-2024 07:43-0500 Inhaled oxygen flow rate 2 L/min Dr. Michael Puga DO Work Phone: [facility] 05-02-2024 05:33-0500 Body mass index (BMI) [Ratio] 37.3 kg/m2 Dr. Michael Puga DO Work Phone: [facility] 05-02-2024 01:40-0500 Inhaled oxygen concentration 30 % Dr. Michael Puga DO Work Phone: [facility] 03-31-2024 11:40-0500 Diastolic blood pressure 78 mm[Hg] Raymundo De León MD Work Phone: [facility] 03-31-2024 11:40-0500 Heart rate 60 /min Raymundo De León MD Work Phone: [facility] 03-31-2024 11:40-0500 SaO2% (BldA) [Mass fraction] 95 % Raymundo De León MD Work Phone: [facility] 03-31-2024 11:40-0500 Systolic blood pressure 156 mm[Hg] Raymundo De León MD Work Phone: [facility] 03-31-2024 11:20-0500 Respiratory rate 18 /min Raymundo De León MD Work Phone: [facility] 03-31-2024 10:39-0500 Body height 165.1 cm Raymundo De León MD Work Phone: [facility] 03-31-2024 10:39-0500 Body mass index (BMI) [Ratio] 38.27 kg/m2 Raymundo De León MD Work Phone: [facility] 03-31-2024 10:39-0500 Body temperature 98.1 [degF] Raymundo De León MD Work Phone: [facility] 03-31-2024 10:39-0500 Body weight 104.33 kg Raymundo De León MD Work Phone: [facility] 03-27-2024 14:15-0500 Body height 165.1 cm Pacc 1 Work Phone: [facility] 03-27-2024 14:15-0500 Body mass index (BMI) [Ratio] 38.27 kg/m2 Pacc 1 Work Phone: [facility] 03-27-2024 14:15-0500 Body temperature 97.5 [degF] Pacc 1 Work Phone: [facility] 03-27-2024 14:15-0500 Body weight 104.33 kg Pacc 1 Work Phone: [facility] 03-27-2024 14:15-0500 Diastolic blood pressure 54 mm[Hg] Pacc 1 Work Phone: [facility] 03-27-2024 14:15-0500 Heart rate 60 /min Pacc 1 Work Phone: [facility] 03-27-2024 14:15-0500 Respiratory rate 16 /min Pacc 1 Work Phone: [facility] 03-27-2024 14:15-0500 SaO2% (BldA) [Mass fraction] 94 % Pacc 1 Work Phone: [facility] 03-27-2024 14:15-0500 Systolic blood pressure 122 mm[Hg] Pacc 1 Work Phone: [facility] 03-23-2024 12:00-0500 Diastolic blood pressure 69 mm[Hg] Sarah Merchant PT Work Phone: [facility] 03-23-2024 12:00-0500 Heart rate 66 /min Sarah Merchant PT Work Phone: [facility] 03-23-2024 12:00-0500 SaO2% (BldA) [Mass fraction] 95 % Sarah Merchant PT Work Phone: [facility] 03-23-2024 12:00-0500 Systolic blood pressure 170 mm[Hg] Sarah Merchant PT Work Phone: [facility] 03-13-2024 14:18-0500 Body height 165.1 cm Sharon John MANAGER UTILITY.HATCHERY MAN Work Phone: [facility] 03-13-2024 14:18-0500 Body mass index (BMI) [Ratio] 38.51 kg/m2 Sharon John MANAGER UTILITY.HATCHERY MAN Work Phone: [facility] 03-13-2024 14:18-0500 Body temperature 97.5 [degF] Sharon John MANAGER UTILITY.HATCHERY MAN Work Phone: [facility] 03-13-2024 14:18-0500 Body weight 104.96 kg Sharon John MANAGER UTILITY.HATCHERY MAN Work Phone: [facility] 03-13-2024 14:18-0500 Diastolic blood pressure 75 mm[Hg] Sharon John MANAGER UTILITY.HATCHERY MAN Work Phone: [facility] 03-13-2024 14:18-0500 Heart rate 71 /min Sharon John MANAGER UTILITY.HATCHERY MAN Work Phone: [facility] 03-13-2024 14:18-0500 SaO2% (BldA) [Mass fraction] 93 % Sharon John MANAGER UTILITY.HATCHERY MAN Work Phone: [facility] 03-13-2024 14:18-0500 Systolic blood pressure 184 mm[Hg] Sharon Rainesir MANAGER UTILITY.HATCHERY MAN Work Phone: [facility] 03-01-2024 17:08-0400 Body mass index (BMI) [Ratio] 38.12 kg/m2 Michael Puga DO Work Phone: [facility] 03-01-2024 17:08-0400 Body temperature 97.11 [degF] Michael Puga DO Work Phone: [facility] 03-01-2024 17:08-0400 Body weight 101.15 kg Michael Puga DO Work Phone: [facility] 03-01-2024 17:08-0400 Diastolic blood pressure 80 mm[Hg] Michael Puga DO Work Phone: [facility] 03-01-2024 17:08-0400 Heart rate 64 /min Michael Puga DO Work Phone: [facility] 03-01-2024 17:08-0400 Respiratory rate 20 /min Michael Puga DO Work Phone: [facility] 03-01-2024 17:08-0400 Systolic blood pressure 144 mm[Hg] Michael Puga DO Work Phone: [facility] 12-07-2023 16:00-0400 Diastolic blood pressure 68 mm[Hg] Wilfred Mcclellan LIME KILN OPERATOR Work Phone: [facility] 12-07-2023 16:00-0400 Systolic blood pressure 144 mm[Hg] Wilfred Mcclellan LIME KILN OPERATOR Work Phone: [facility] 12-01-2023 13:50-0400 Body mass index (BMI) [Ratio] 38.8 kg/m2 Michael Puga DO Work Phone: [facility] 12-01-2023 13:50-0400 Body temperature 98.01 [degF] Michael Puga DO Work Phone: [facility] 12-01-2023 13:50-0400 Body weight 102.97 kg Michael Puga DO Work Phone: [facility] 12-01-2023 13:50-0400 Diastolic blood pressure 76 mm[Hg] Michael Puga DO Work Phone: [facility] 12-01-2023 13:50-0400 Heart rate 64 /min Michael Puga DO Work Phone: [facility] 12-01-2023 13:50-0400 Respiratory rate 24 /min Michael Puga DO Work Phone: [facility] 12-01-2023 13:50-0400 Systolic blood pressure 146 mm[Hg] Michael Puga DO Work Phone: [facility] 10-14-2023 13:24-0400 Body mass index (BMI) [Ratio] 38.46 kg/m2 Key Portillo MANAGER UTILITY.HATCHERY MAN Work Phone: [facility] 10-14-2023 13:24-0400 Body weight 102.06 kg Key Portillo MANAGER UTILITY.HATCHERY MAN Work Phone: [facility] 10-14-2023 13:24-0400 Diastolic blood pressure 58 mm[Hg] Key Portillo MANAGER UTILITY.HATCHERY MAN Work Phone: [facility] 10-14-2023 13:24-0400 Heart rate 68 /min Key Portillo MANAGER UTILITY.HATCHERY MAN Work Phone: [facility] 10-14-2023 13:24-0400 Respiratory rate 16 /min Key Portillo MANAGER UTILITY.HATCHERY MAN Work Phone: [facility] 10-14-2023 13:24-0400 Systolic blood pressure 142 mm[Hg] Key Portillo MANAGER UTILITY.HATCHERY MAN Work Phone: [facility] 04-05-2023 11:22-0500 Body temperature 97.2 [degF] Michael Puga DO Work Phone: [facility] 04-05-2023 11:22-0500 Body weight 101.61 kg Michael Puga DO Work Phone: [facility] 04-05-2023 11:22-0500 Diastolic blood pressure 80 mm[Hg] Michael Puga DO Work Phone: [facility] 04-05-2023 11:22-0500 Heart rate 64 /min Michael Puga DO Work Phone: [facility] 04-05-2023 11:22-0500 Respiratory rate 16 /min Michael Puga DO Work Phone: [facility] 04-05-2023 11:22-0500 Systolic blood pressure 120 mm[Hg] Michael Puga DO Work Phone: [facility] 12-28-2022 14:00-0400 Body height 162.9 cm Pulm Wstr Work Phone: [facility] 12-28-2022 14:00-0400 Body weight 102.06 kg Pulm Wstr Work Phone: [facility] 12-28-2022 14:00-0400 Heart rate 66 /min Pulm Wstr Work Phone: [facility] 12-28-2022 14:00-0400 Respiratory rate 14 /min Pulm Wstr Work Phone: [facility] 12-28-2022 14:00-0400 SaO2% (BldA) [Mass fraction] 96 % Pulm Wstr Work Phone: [facility] 12-22-2022 15:24-0400 Body height 165.1 cm Michael Puga DO Work Phone: [facility] 12-22-2022 15:24-0400 Body weight 103.87 kg Michael Puga DO Work Phone: [facility] 12-22-2022 15:24-0400 Diastolic blood pressure 62 mm[Hg] Michael Puga DO Work Phone: [facility] 12-22-2022 15:24-0400 Heart rate 63 /min Michael Puga DO Work Phone: [facility] 12-22-2022 15:24-0400 Respiratory rate 18 /min Michael Puga DO Work Phone: [facility] 12-22-2022 15:24-0400 SaO2% (BldA) [Mass fraction] 96 % Michael Puga DO Work Phone: [facility] 12-22-2022 15:24-0400 Systolic blood pressure 130 mm[Hg] Michael Puga DO Work Phone: [facility] 06-22-2022 11:42-0500 Body temperature 98.2 [degF] Michael Puga DO Work Phone: [facility] 06-22-2022 11:42-0500 Body weight 102.51 kg Michael Puga DO Work Phone: [facility] 06-22-2022 11:42-0500 Diastolic blood pressure 68 mm[Hg] Michael Puga DO Work Phone: [facility] 06-22-2022 11:42-0500 Heart rate 64 /min Michael Puga DO Work Phone: [facility] 06-22-2022 11:42-0500 Respiratory rate 16 /min Michael Puga DO Work Phone: [facility] 06-22-2022 11:42-0500 Systolic blood pressure 128 mm[Hg] Michael Puga DO Work Phone: [facility] 06-04-2022 15:28-0500 Diastolic blood pressure 80 mm[Hg] Key Portillo MANAGER UTILITY.HATCHERY MAN Work Phone: [facility] 06-04-2022 15:28-0500 Systolic blood pressure 164 mm[Hg] Key Portillo MANAGER UTILITY.HATCHERY MAN Work Phone: [facility] 06-04-2022 14:34-0500 Body weight 106.69 kg Key Portillo MANAGER UTILITY.HATCHERY MAN Work Phone: [facility] 06-04-2022 14:34-0500 Heart rate 63 /min Key Portillo MANAGER UTILITY.HATCHERY MAN Work Phone: [facility] 06-04-2022 14:34-0500 Respiratory rate 16 /min Key Portillo MANAGER UTILITY.HATCHERY MAN Work Phone: [facility] 06-04-2022 14:34-0500 SaO2% (BldA) [Mass fraction] 93 % Key Portillo MANAGER UTILITY.HATCHERY MAN Work Phone: [facility] 04-21-2022 12:31-0500 Body temperature 96.8 [degF] Michael Puga DO Work Phone: [facility] 04-21-2022 12:31-0500 Body weight 105.23 kg Michael Puga DO Work Phone: [facility] 04-21-2022 12:31-0500 Diastolic blood pressure 74 mm[Hg] Michael Puga DO Work Phone: [facility] 04-21-2022 12:31-0500 Heart rate 60 /min Michael Puga DO Work Phone: [facility] 04-21-2022 12:31-0500 Respiratory rate 20 /min Michael Puga DO Work Phone: [facility] 04-21-2022 12:31-0500 Systolic blood pressure 124 mm[Hg] Michael Puga DO Work Phone: [facility] 02-16-2022 11:44-0400 Body temperature 97 [degF] Michael Puga DO Work Phone: [facility] 02-16-2022 11:44-0400 Body weight 105.69 kg Michael Puga DO Work Phone: [facility] 02-16-2022 11:44-0400 Diastolic blood pressure 70 mm[Hg] Michael Puga DO Work Phone: [facility] 02-16-2022 11:44-0400 Heart rate 68 /min Michael Puga DO Work Phone: [facility] 02-16-2022 11:44-0400 Respiratory rate 16 /min Michael Puga DO Work Phone: [facility] 02-16-2022 11:44-0400 Systolic blood pressure 146 mm[Hg] Michael Puga DO Work Phone: [facility] 01-16-2022 09:59-0400 Body temperature 97.59 [degF] Raymundo De León MD Work Phone: [facility] 01-16-2022 09:59-0400 Body weight 105.05 kg Raymundo De León MD Work Phone: [facility] 01-16-2022 09:59-0400 Heart rate 80 /min Raymundo De León MD Work Phone: [facility] 01-16-2022 09:59-0400 SaO2% (BldA) [Mass fraction] 96 % Raymundo De León MD Work Phone: [facility] 01-08-2022 14:45-0400 Diastolic blood pressure 72 mm[Hg] Raymundo De León MD Work Phone: [facility] 01-08-2022 14:45-0400 Heart rate 60 /min Raymundo De León MD Work Phone: [facility] 01-08-2022 14:45-0400 Respiratory rate 16 /min Raymundo De León MD Work Phone: [facility] 01-08-2022 14:45-0400 SaO2% (BldA) [Mass fraction] 92 % Raymundo De León MD Work Phone: [facility] 01-08-2022 14:45-0400 Systolic blood pressure 163 mm[Hg] Raymundo De León MD Work Phone: [facility] 01-08-2022 13:15-0400 Body temperature 97.81 [degF] Raymundo De León MD Work Phone: [facility] 12-18-2021 15:07-0400 Body height 165.1 cm Raymundo De León MD Work Phone: [facility] 12-18-2021 15:07-0400 Body temperature 98.71 [degF] Raymundo De León MD Work Phone: [facility] 12-18-2021 15:07-0400 Body weight 102.51 kg Raymundo De León MD Work Phone: [facility] 12-18-2021 15:07-0400 Diastolic blood pressure 70 mm[Hg] Raymundo De León MD Work Phone: [facility] 12-18-2021 15:07-0400 Heart rate 78 /min Raymundo De León MD Work Phone: [facility] 12-18-2021 15:07-0400 SaO2% (BldA) [Mass fraction] 98 % Raymundo De León MD Work Phone: [facility] 12-18-2021 15:07-0400 Systolic blood pressure 138 mm[Hg] Raymundo De León MD Work Phone: [facility] 10-20-2021 15:25-0400 Body temperature 98.91 [degF] Nunu Bogner PA-C Work Phone: [facility] 10-20-2021 15:25-0400 Body weight 101.33 kg Nunu Bogner PA-C Work Phone: [facility] 10-20-2021 15:25-0400 Diastolic blood pressure 80 mm[Hg] Nunu Bogner PA-C Work Phone: [facility] 10-20-2021 15:25-0400 Heart rate 61 /min Nunu Bogner PA-C Work Phone: [facility] 10-20-2021 15:25-0400 Respiratory rate 20 /min Nunu Bogner PA-C Work Phone: [facility] 10-20-2021 15:25-0400 SaO2% (BldA) [Mass fraction] 95 % Nunu Gonzalez PA-C Work Phone: [facility] 10-20-2021 15:25-0400 Systolic blood pressure 134 mm[Hg] Nunugemini Gonzalez PA-C Work Phone: [facility] 06-09-2021 09:35-0500 Body height 165.[address] Michael Puga Work Phone: [facility] Work Phone: 06-09-2021 09:35-0500 Body weight 100.[address] Michael Puga Work Phone: [facility] Work Phone: 06-06-2021 08:07-0500 Body mass index (BMI) [Ratio] 36.9 kg/m2 Dr. Michael Puga Work Phone: [facility] Work Phone: 06-02-2021 11:58-0500 Body mass index (BMI) [Ratio] 36.9 kg/m2 Dr. Michael Puga Work Phone: [facility] Work Phone: 06-02-2021 11:58-0500 Body weight 100.[address] Michael Puga Work Phone: [facility] Work Phone: 06-02-2021 11:58-0500 Diastolic blood pressure 79 mm[Hg] Dr. Michael Puga Work Phone: [facility] Work Phone: 06-02-2021 11:58-0500 Heart rate 70 /min Dr. Michael Puga Work Phone: [facility] Work Phone: 06-02-2021 11:58-0500 Respiratory rate 18 /min Dr. Michael Puga Work Phone: [facility] Work Phone: 06-02-2021 11:58-0500 SaO2% (BldA) [Mass fraction] 94 % Dr. Michael Puga Work Phone: [facility] Work Phone: 06-02-2021 11:58-0500 Systolic blood pressure 174 mm[Hg] Dr. Michael Puga Work Phone: [facility] Work Phone: 12-21-2020 19:10-0400 Diastolic blood pressure 94 mm[Hg] Michael Puga Other Phone: [facility] 12-21-2020 19:10-0400 Heart rate 88 /min Michael Puga Other Phone: [facility] 12-21-2020 19:10-0400 Respiratory rate 18 /min Michael Puga Other Phone: [facility] 12-21-2020 19:10-0400 SaO2% (BldA) [Mass fraction] 95 % Michael Puga Other Phone: [facility] 12-21-2020 19:10-0400 Systolic blood pressure 144 mm[Hg] Michael Puga Other Phone: [facility] 12-21-2020 17:03-0400 Body height 165.1 cm Michael Puga Other Phone: [facility] 12-21-2020 17:03-0400 Body temperature 99.86 [degF] Michael Puga Other Phone: [facility] 12-21-2020 17:03-0400 Body weight 98 kg Michael Puga Other Phone: [facility] 10-22-2016 12:59-0400 BMI (Body Mass Index) 37.27 kg/m2 Shalini Montanez [facility] Work Phone: 10-22-2016 12:59-0400 BP Diastolic 70 mm[Hg] Shalini Montanez [facility] Work Phone: 10-22-2016 12:59-0400 BP Systolic 140 mm[Hg] [facility] Work Phone: 10-22-2016 12:59-0400 Height 165.1 cm Shalini Montanez [facility] Work Phone: 10-22-2016 12:59-0400 Pulse (Heart Rate) 68 /min Shalini Montanez [facility] Work Phone: 10-22-2016 12:59-0400 Respiratory Rate 20 /min Shal[facility] Work Phone: 10-22-2016 12:59-0400 Weight 101.61 kg Shalini Montanez [facility] Work Phone: 04-15-2016 13:20-0500 BMI (Body Mass Index) 39.14 kg/m2 Delisa Juárez RN [facility] Work Phone: 04-15-2016 13:20-0500 BP Diastolic 62 mm[Hg] Delisa Juárez RN [facility] Work Phone: 04-15-2016 13:20-0500 BP Systolic 130 mm[Hg] Delisa Juárez RN [facility] Work Phone: 04-15-2016 13:20-0500 BSA (Body Surface Area) 2.12 m2 Delisa Juárez RN [facility] Work Phone: 04-15-2016 13:20-0500 Pulse (Heart Rate) 60 /min Delisa Juárez RN [facility] Work Phone: 04-15-2016 13:20-0500 Respiratory Rate 20 /min Delisa Juárez RN [facility] Work Phone: 04-15-2016 13:20-0500 Weight 106.69 kg Delisa Juárez RN [facility] Work Phone: 05-28-2015 13:30-0500 BP Diastolic 82 mm[Hg] Delisa Juárez RN [facility] Work Phone: 05-28-2015 13:30-0500 BP Systolic 177 mm[Hg] Delisa Juárez RN [facility] Work Phone: 11-22-2014 13:42-0400 Heart rate 60 /min Delisa Juárez RN [facility] Work Phone: 05-05-2011 16:04-0500 Heart rate 420 ms Delisa Juárez RN [facility] Work Phone: 04-07-2011 13:46-0500 Height 165.1 cm Delisa Juárez RN [facility] Work Phone: Encounters Encounter Date Encounter Type Care Provider Facility Start: 12-04-2024 ambulatory Michael Triana y:[facility] Start: 11-27-2024 End: 11-27-2024 Refill Michael Puga DO Work Phone: [facility] Comment on above: Refill Request Start: 11-11-2024 End: 11-13-2024 Refill Key Portillo MANAGER UTILITY.HATCHERY MAN Work Phone: [facility] Comment on above: Refill Request Start: 11-10-2024 End: 11-13-2024 Telephone encounter Michael Puga DO Work Phone: [facility] Comment on above: Patient Update Start: 11-02-2024 End: 11-02-2024 Patient encounter procedure Anabel Horne PA -[facility] Work Phone: Start: 11-02-2024 End: 11-02-[address] Michael Puga DO Work Phone: -[facility] Start: 11-01-2024 End: 11-01-2024 Telephone encounter Key Portillo MANAGER UTILITY.HATCHERY MAN Work Phone: [facility] Start: 10-31-2024 End: 10-31-[address] Michael Puga DO Work Phone: -Radiology [facility] Start: 10-31-2024 End: 10-31-2024 Patient encounter procedure Anabel Horne PA -[facility]iology [facility] Work Phone: Start: 10-31-2024 End: 10-31-2024 ambulatory Michael Puga Facility:[facility] Start: 10-27-2024 End: 10-27-2024 ambulatory Sarah Merchant PT Work Phone: [facility]S [facility]CLUDE 234 BEDS AT [facility] Comment on above: Abnormality of gait (Primary Dx); Weakness; Difficulty walking; Imbalance Start: 10-27-2024 End: 10-27-[address] Michael Puga DO Work Phone: -[facility] Start: 10-27-2024 End: 10-27-[address] [facility] Work Phone: Start: 10-25-2024 End: 10-26-2024 Telephone encounter Michael Puga DO Work Phone: [facility] Comment on above: Medication Question Start: 10-23-2024 End: 10-23-[address] Michael Puga DO Work Phone: -[facility] Start: 10-23-2024 End: 10-23-[address] Gall[facility] Work Phone: Start: 10-16-2024 End: 10-16-[address] Michael Puga DO Work Phone: -[facility] Start: 10-16-2024 End: 10-16-[address] Gallo iHckey [facility] Work Phone: Start: 10-09-2024 End: 10-09-2024 ambulatory Joy Sun PTA COUNTS INCLUDE 234 BEDS AT [facility] Comment on above: Abnormality of gait (Primary Dx); Weakness; Difficulty walking; Imbalance Start: 10-02-2024 End: 10-02-2024 ambulatory Pj Bledsoe PT Work Phone: COUNTS INCLUDE 234 BEDS AT [facility] Comment on above: Abnormality of gait (Primary Dx); Weakness; Difficulty walking; Imbalance Start: 09-28-2024 End: 09-28-2024 Telephone encounter Key Portillo APRN.HATCHERY MAN Work Phone: [facility] [place] Comment on above: report tremor is wor se Start: 09-28-2024 End: 09-28-2024 ambulatory Sarahholly Cainamanda PT Work Phone: COUNTS INCLUDE 234 BEDS AT [facility] Comment on above: Weakness (Primary Dx ); Difficulty walking; Abnormality of gait; Imbalance Start: 09-11-2024 End: 09-11-2024 Refill Michael Puga DO Work Phone: [facility] Comment on above: Refill Request Start: 09-08-2024 End: 09-11-2024 Telephone encounter Michael Puga DO Work Phone: [facility] [place] Comment on above: Problem with order Start: 09-05-2024 End: 09-08-2024 Telephone encounter Michael Puga DO Work Phone: [facility] Comment on above: Patient Question Start: 08-30-2024 End: 08-30-2024 Patient encounter procedure Michael Puga DO Work Phone: [facility] [place] Comment on above: Hypoglycemia (Primar y Dx); Restless leg; Dysthymia; Congestive heart failure, unspecified HF chronicity, unspecified heart failure type (HCC); Obstructive lung disease (HCC); Arthritis, multiple joint involvement; Gait abnormality; Chronic respiratory failure with hypoxia (HCC) Start: 08-30-2024 End: 08-30-2024 ambulatory MICHAEL PUGA Facility:[facility] Start: 08-17-2024 End: 08-17-2024 Office outpatient visit 25 minutes Asia Rosales APRN.HATCHERY MAN Work Phone: [facility] [place] Comment on above: Anxiety (Primary Dx) ; Dysthymia; Congestive heart failure, unspecified HF chronicity, unspecified heart failure type (HCC); Function kidney decreased; Obstructive lung disease (HCC); Pulmonary hypertension (HCC) Start: 08-17-2024 End: 08-17-2024 ambulatory ASIA CONNIE Facility:[facility] Start: 08-16-2024 End: 08-18-2024 Telephone encounter Michael Puga DO Work Phone: [facility] [place] Comment on above: Patient Update Start: 07-28-2024 End: 07-28-2024 ambulatory Michael Puga Facility:[facility] Start: 07-28-2024 End: 07-28-[address] Gallo Hickey MD -[facility] Work Phone: Start: 07-07-2024 End: 07-07-2024 Patient encounter procedure Anabel ALVA -[facility] Work Phone: Start: 07-07-2024 End: 07-07-2024 ambulatory Michael Puga DO Work Phone: [facility] Comment on above: Medication Question Start: 07-07-2024 End: 07-07-2024 ambulatory Michael Puga Facility:[facility] Start: 07-03-2024 Non-patient / Non-visit Dr. Virgil ordaz MD -[facility] Start: 07-03-2024 End: 07-03-[address] Michael Puga DO Work Phone: [facility] Work Phone: Start: 07-03-2024 End: 07-03-2024 Patient encounter procedure Anabel ALVA -Cardiovascular Services Work Phone: Start: 07-03-2024 End: 07-03-2024 ambulatory Michael Puga Facility:[facility] Start: 06-26-2024 End: 07-14-2024 Telephone encounter Michael Puga DO Work Phone: [facility] [place] Comment on above: Patient Update Start: 06-22-2024 End: 06-22-2024 Patient encounter procedure Anabel ALVA -Pulmonary Services/Neurology Work Phone: Start: 06-22-2024 ambulatory Michael Puga Facilit y:[facility] Start: 06-21-2024 End: 06-21-2024 Patient encounter procedure Michael Puga DO Work Phone: [facility] Comment on above: Obstructive lung dis ease (HCC) (Primary Dx); Thyroid disease; Pulmonary hypertension (HCC); WELCH (dyspnea on exertion); Function kidney decreased; Situational mixed anxiety and depressive disorder; Arthritis, multiple joint involvement Start: 06-21-2024 End: 06-22-2024 ambulatory MICHAEL PUGA Facility:[facility] Start: 06-16-[address] Faby Puga DO -[facility] Work Phone: Start: 06-16-2024 ambulatory Gallo Hickey Facility:[facility] Start: 06-06-2024 End: 06-06-2024 Telephone encounter Michael Puga DO Work Phone: [facility] Comment on above: Results, Lab Start: 06-03-2024 ambulatory Michael Puga Facilit y:[facility] Start: 06-02-2024 End: 06-02-2024 ambulatory Michael Goldsteinrison Facility:[facility] Start: 06-02-2024 End: 06-02-[address] Michael Puga DO -[facility] Start: 06-01-2024 End: 06-01-2024 ambulatory Michael Puga Facility:[facility] Start: 06-01-2024 End: 06-01-[address] Gallo Hickey MD -[facility] Work Phone: Start: 05-30-2024 End: 05-31-2024 Telephone encounter Michael Puga DO Work Phone: [facility] Comment on above: Results Start: 05-25-2024 End: 05-25-2024 Telephone encounter Michael Puga DO Work Phone: [facility] Comment on above: Patient Update; Medi cation Question Start: 05-25-2024 End: 05-25-[address] Michael Puga DO -Laboratory, Specimen Work Phone: Start: 05-25-2024 End: 05-25-2024 ambulatory Michael Puga Facility:[facility] Start: 05-22-2024 ambulatory Key Lety Portillo Fa cility:[facility] Start: 05-19-2024 End: 05-19-2024 Telephone encounter Michael Alyssa Puga DO Work Phone: [facility] Comment on above: Results Start: 05-16-2024 End: 05-18-2024 Telephone encounter Michael Shah Puga DO Work Phone: [facility] Comment on above: Medication Update; O rders Start: 05-12-2024 End: 05-12-2024 Telephone encounter Key Portillo APRN.HATCHERY MAN Work Phone: [facility] Comment on above: Patient Question Results Start: 05-11-2024 End: 05-11-2024 Patient encounter procedure Key Portillo APRN.HATCHERY MAN Work Phone: [facility] Comment on above: Hospital discharge f ollow-up (Primary Dx); Congestive heart failure, unspecified HF chronicity, unspecified heart failure type (HCC); Thyroid disease; Restless leg Start: 05-11-2024 End: 05-11-2024 ambulatory KEY PORTILLO Facility:[facility] Start: 05-08-2024 End: 05-08-2024 Telephone encounter Michael Ghotraon DO Work Phone: [facility] Comment on above: Patient Update Start: 05-05-2024 End: 05-05-2024 Telephone encounter Michael Shah Puga DO Work Phone: [facility] Comment on above: Home Health Point of Care Results Start: 05-04-2024 End: 05-05-2024 Patient Outreach Michael Ghotraon DO Work Phone: [facility] Comment on above: [facility] Care Refill Request Start: 05-02-2024 Non-patient / Non-visit Dr. Alyson Vicente MD -[facility] Work Phone: Start: 05-01-2024 End: 05-01-2024 Telephone encounter Michael Puga DO Work Phone: [facility] [place] Comment on above: verbal orders Start: 05-01-2024 Non-patient / Non-visit Dr. Alyson Vicente MD -[facility] Work Phone: Start: 04-30-2024 End: 04-30-2024 ambulatory Michael Puga Facility:[facility] Start: 04-30-2024 End: 04-30-2024 Non-patient / Non-visit Dr. Gallo Hickey MD -[facility] Work Phone: Start: 04-30-2024 ambulatory Susan Duran Facility :[facility] Start: 04-30-2024 End: 05-02-2024 Evaluation and management of inpatient Dr. Jonny Vicente MD -Intensive Care Unit Work Phone: Start: 2024 End: 2024 ambulatory Michael Puga Facility:[facility] Start: 2024 End: [address] Gallo Hickey MD [facility] Work Phone: Start: 04-24-2024 End: 04-24-2024 Telephone encounter Michael Puga DO Work Phone: [facility] Comment on above: Leg Pain Start: 04-20-2024 End: 04-20-2024 ambulatory Sarah Merchant PT Work Phone: COUNTS INCLUDE 234 BEDS AT [facility] Comment on above: Difficulty walking ( Primary Dx); Weakness; Imbalance Start: 04-18-2024 End: 04-18-2024 ambulatory Sarah Merchant PT Work Phone: COUNTS INCLUDE 234 BEDS AT [facility] Comment on above: Difficulty walking ( Primary Dx); Imbalance; Weakness Start: 04-10-2024 End: 04-10-2024 ambulatory SHARON JARRETT Facility:[facility] Start: 04-10-2024 End: 04-10-2024 Patient encounter procedure Sharon Jarrett MANAGER UTILITY.HATCHERY MAN Work Phone: General Surgery Comment on above: Other gastritis with out bleeding (Primary Dx) Start: 03-31-2024 ambulatory SHARON JARRETT Facilit y:[facility] Start: 03-31-2024 End: 03-31-2024 Subsequent hospital visit by physician Raymundo De León MD Work Phone: [facility] Comment on above: Epigastric abdominal pain [R10.13] Start: 03-27-2024 End: 03-27-2024 PAT [facility] Work Phone: Pre Anesthesia Comment on above: Pre-operative examin ation (Primary Dx); JOSE on CPAP; Obstructive lung disease (HCC); Primary hypertension; Hyperlipidemia, unspecified hyperlipidemia type; 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; Paroxysmal atrial fibrillation (HCC); Pulmonary hypertension (HCC); TIA (transient ischemic attack); Disorder of carotid artery (HCC); Situational mixed anxiety and depressive disorder; Subclinical hypothyroidism; Hypokalemia; Iron deficiency anemia, unspecified iron deficiency anemia type; Personal history of malignant melanoma of skin; IFG (impaired fasting glucose); Arthritis, multiple joint involvement; BMI 38.0-38.9,adult; Gastroesophageal reflux disease, unspecified whether esophagitis present Start: 03-27-2024 End: 03-27-2024 Preprocedural examination done [facility] [place] [facility] Work Phone: [facility] Start: 03-23-2024 End: 03-23-2024 ambulatory Sarah Merchant PT Work Phone: COUNTS INCLUDE 234 BEDS AT [facility] Comment on above: Difficulty walking ( Primary Dx); Imbalance; Weakness Start: 03-20-2024 End: 03-20-2024 ambulatory Sarah Merchant PT Work Phone: COUNTS INCLUDE 234 BEDS AT [facility] Comment on above: Difficulty walking ( Primary Dx); Imbalance; Weakness Start: 03-16-2024 End: 03-16-2024 ambulatory Sarah Merchant PT Work Phone: COUNTS INCLUDE 234 BEDS AT [facility] Comment on above: Difficulty walking ( Primary Dx); Imbalance; Weakness Start: 03-14-2024 End: 03-14-2024 ambulatory Joy Sun LIME KILN OPERATOR COUNTS INCLUDE 234 BEDS AT [facility] Comment on above: Difficulty walking ( Primary Dx); Imbalance; Weakness Start: 03-13-2024 End: 03-13-2024 ambulatory SHARON JARRETT Facility:[facility] Start: 03-13-2024 End: 03-13-2024 Patient encounter procedure Sharon Jarrett HATCHERY MAN Work Phone: General Surgery Comment on above: Epigastric abdominal pain (Primary Dx); Pulmonary hypertension (HCC) Start: 03-13-2024 End: 04-03-2024 Telephone encounter Raymundo De León MD Work Phone: General Surgery Comment on above: 03-31-2024 EGD kym spence Start: 03-08-2024 End: 03-09-2024 Telephone encounter Michael Puga DO Work Phone: [facility] Comment on above: Wheelchair order Start: 03-02-2024 End: 03-02-2024 ambulatory Sarah Merchant PT Work Phone: COUNTS INCLUDE 234 BEDS AT [facility] Comment on above: Difficulty walking ( Primary Dx); Imbalance; Weakness Start: 03-01-2024 End: 03-01-2024 Patient encounter procedure Michael Puga DO Work Phone: [facility] Comment on above: Arthritis, multiple joint involvement (Primary Dx); Anxiety; Need for influenza vaccination; Epigastric abdominal pain; Obstructive lung disease (HCC); Gait abnormality; Imbalance Start: 03-01-2024 End: 03-01-2024 ambulatory MICHAEL PUGA Facility:[facility] Start: 03-01-2024 End: 03-02-2024 Telephone encounter Michael Puga DO Work Phone: [facility] Comment on above: Orders Start: 02-17-2024 End: 02-18-2024 ambulatory Sarah Merchant PT Work Phone: COUNTS INCLUDE 234 BEDS AT [facility] Comment on above: Difficulty walking ( Primary Dx); Imbalance; Weakness Start: 02-14-2024 End: 02-14-2024 ambulatory Wilfred Mcclellan LIME KILN OPERATOR Work Phone: COUNTS INCLUDE 234 BEDS AT [facility] Comment on above: Weakness (Primary Dx ); Imbalance Start: 02-10-2024 End: 02-10-2024 ambulatory Sarah Merchant PT Work Phone: COUNTS INCLUDE 234 BEDS AT [facility] Comment on above: Weakness (Primary Dx ); Imbalance; Difficulty walking Start: 02-07-2024 ambulatory Michael Ghotraon Facilit y:[facility] Start: 02-07-2024 End: 02-07-2024 ambulatory Sarah Merchant PT Work Phone: COUNTS INCLUDE 234 BEDS AT [facility] Comment on above: Weakness (Primary Dx ); Imbalance; Difficulty walking Start: 02-02-2024 ambulatory Michael Goldsteinrison Facilit y:[facility] Start: 02-02-2024 End: 02-02-2024 ambulatory Anabel Horne Facility:[facility] Start: 01-31-2024 End: 01-31-2024 ambulatory Sarah Merchant PT Work Phone: COUNTS INCLUDE 234 BEDS AT [facility] Comment on above: Weakness (Primary Dx ); Imbalance; Difficulty walking Start: 01-28-2024 End: 01-28-2024 ambulatory Michael Ghotraon Facility:[facility] Start: 01-26-2024 End: 01-26-2024 ambulatory Wilfred Zeny LIME KILN OPERATOR Work Phone: COUNTS INCLUDE 234 BEDS AT [facility] Comment on above: Weakness (Primary Dx ); Imbalance Start: 01-25-2024 End: 01-25-2024 ambulatory Michael Goldsteinrison Facility:[facility] Start: 01-25-2024 End: 01-25-2024 ambulatory Anabel Horne Facility:[facility] Start: 01-18-2024 End: 01-18-2024 ambulatory Sarah Merchant PT Work Phone: COUNTS INCLUDE 234 BEDS AT [facility] Comment on above: Weakness (Primary Dx ); Imbalance; Difficulty walking Start: 01-10-2024 End: 01-11-2024 Telephone encounter Michael Alyssa Puga DO Work Phone: [facility] Comment on above: Wheelchair order Start: 12-13-2023 End: 12-14-2023 ambulatory Sarah Merchant PT Work Phone: COUNTS INCLUDE 234 BEDS AT [facility] Comment on above: Weakness (Primary Dx ); Difficulty walking; Imbalance Start: 12-08-2023 End: 12-08-2023 ambulatory MIHCAEL GOLDSTEINRISON Facility:[facility] Start: 12-07-2023 End: 12-07-2023 ambulatory Wilfred Mcclellan LIME KILN OPERATOR Work Phone: COUNTS INCLUDE 234 BEDS AT [facility] Comment on above: Weakness (Primary Dx ) Start: 12-01-2023 End: 12-01-2023 ambulatory MICHAEL Alyssa PUGA Facility:[facility] Start: 12-01-2023 End: 12-01-2023 Patient encounter procedure Michael Puga DO Work Phone: [facility] [place] Comment on above: Acute bronchitis, un specified organism (Primary Dx); Thyroid disease; Rhonchi; Obstructive lung disease (HCC); Paroxysmal atrial fibrillation (HCC); Disorder of carotid artery (HCC); Malignant melanoma of skin of trunk, except scrotum (HCC) Start: 11-26-2023 Telephone encounter Asia Persaud APRN.HATCHERY MAN Work Phone: [facility] Comment on above: Results Start: 11-25-2023 End: 11-25-2023 ambulatory Sarah Merchant PT Work Phone: COUNTS INCLUDE 234 BEDS AT [facility] Comment on above: Weakness (Primary Dx ); Difficulty walking; Imbalance Start: 11-23-2023 End: 11-23-2023 ambulatory Sarah Merchant PT Work Phone: COUNTS INCLUDE 234 BEDS AT [facility] Comment on above: Weakness (Primary Dx ); Difficulty walking; Imbalance Start: 11-15-2023 End: 11-16-2023 ambulatory Sarah Merchant PT Work Phone: COUNTS INCLUDE 234 BEDS AT [facility] Comment on above: Weakness (Primary Dx ); Difficulty walking; Imbalance Start: 10-18-2023 Refill Michael ochoa DO Work Phone: [facility] Comment on above: Refill Request Orders; Medication Q uestion Start: 10-14-2023 End: 10-14-2023 Patient encounter procedure Key Portillo APRN.HATCHERY MAN Work Phone: [facility] Comment on above: Hospital discharge f ollow-up (Primary Dx); Anxiety; TIA (transient ischemic attack); Hyperlipidemia, unspecified hyperlipidemia type; Sleep disturbances; Community acquired pneumonia, unspecified laterality; On supplemental oxygen therapy; Subclinical hypothyroidism; IFG (impaired fasting glucose); Primary hypertension Start: 10-11-2023 ambulatory Isabella burris RN Work Phone: [employer] Start: 10-11-2023 Telephone follow-up Isabella Michel RN Work Phone: [employer] Comment on above: Transition Of Care ( TCM OON follow up ) Weekly phone contact (Recurring) for Transitional Care Management Start: 10-06-2023 Telephone encounter Michael car DO Work Phone: [facility] [place] Start: 10-04-2023 Patient Outreach Isabella Michel RN Work Phone: [employer] Comment on above: Transition Of Care ( TCM / [place] DC 10/01/OON ) Initial phone contact for Transitional Care Management HH: orders, update, medications Start: 10-01-2023 Telephone encounter Michael car DO Work Phone: [facility] [place] Start: 04-05-2023 End: 04-05-2023 Patient encounter procedure Michael Puga DO Work Phone: [facility] [place] Comment on above: Subclinical hypothyr oidism (Primary Dx); Need for influenza vaccination; Need for COVID-19 vaccine; Thyroid disease; Situational mixed anxiety and depressive disorder; Fatigue, unspecified type; Obstructive lung disease (HCC); IFG (impaired fasting glucose); Vitamin B12 deficiency; Primary hypertension; Vitamin D deficiency; Paroxysmal atrial fibrillation (HCC); Arthritis, multiple joint involvement; Malignant melanoma of skin of trunk, except scrotum (HCC) Start: 03-31-2023 Telephone encounter Michael Nagy Phone: [facility] [place] Comment on above: Patient Question Start: 01-11-2023 Telephone encounter Michael car DO Work Phone: [facility] Comment on above: Orders Start: 12-30-2022 Telephone encounter Michael car DO Work Phone: [facility] [place] Comment on above: Results Start: 12-28-2022 End: 12-28-2022 Subsequent hospital visit by physician [place] [facility] [place] [facility] Work Phone: Radiology Comment on above: WELCH (dyspnea on exer tion) [R06.09] Start: 12-28-2022 End: 12-28-2022 ambulatory Pulm Lab [facility] Work Phone: PULM [facility] Comment on above: Spirometry Start: 12-28-2022 End: 12-28-2022 Patient encounter procedure Pulm Lab [facility] Work Phone: [place] [facility] Start: 12-22-2022 End: 12-22-2022 Patient encounter procedure Michael Puga DO Work Phone: [facility] [place] Comment on above: WELCH (dyspnea on exer tion) (Primary Dx); Fatigue, unspecified type; Obesity, Class II, BMI 35-39.9; IFG (impaired fasting glucose); Vitamin B12 deficiency; Primary hypertension; Disorder of carotid artery (HCC) Start: 09-29-2022 Refill Michael ochoa DO Work Phone: [facility] [place] Comment on above: Refill Request Start: 06-29-2022 Refill Michael ochoa DO Work Phone: [facility] [place] Comment on above: Refill Request Start: 06-22-2022 End: 06-22-2022 Patient encounter procedure Michael Puga DO Work Phone: [facility] [place] Comment on above: Iron deficiency (Lisa radha Dx); Fatigue, unspecified type; SOB (shortness of breath) on exertion; IFG (impaired fasting glucose); Vitamin D deficiency; Vitamin B12 deficiency; Hyperlipidemia, unspecified hyperlipidemia type; Primary hypertension; Obesity, Class II, BMI 35-39.9; Arthritis, multiple joint involvement Start: 06-10-2022 Telephone encounter Key Palmer son MANAGER UTILITY.HATCHERY MAN Work Phone: [facility] [place] Comment on above: Results Start: 06-08-2022 Telephone encounter Key ochoa MANAGER UTILITY.HATCHERY MAN Work Phone: [facility] [place] Comment on above: Results Start: 06-05-2022 Telephone encounter Michael car DO Work Phone: [facility] [place] Comment on above: Medication Problem Start: 06-04-2022 End: 06-04-2022 Patient encounter procedure Key Portillo MANAGER UTILITY.HATCHERY MAN Work Phone: [facility] [place] Comment on above: Fatigue, unspecified type (Primary Dx); SOB (shortness of breath) on exertion; Hyperlipidemia, unspecified hyperlipidemia type; Obesity, Class II, BMI 35-39.9; IFG (impaired fasting glucose); Iron deficiency anemia, unspecified iron deficiency anemia type; Vitamin D deficiency; Bilateral leg edema; Primary hypertension Start: 06-02-2022 ambulatory Anita Phyllis Box MA [facility] [employer] Comment on above: Population Health Na vigation Outreach ([facility] at [facility] - [facility] ) Extreme fatigue Start: 04-27-2022 Telephone encounter Michael Carlos joceline VELASCO Work Phone: [facility] [place] Comment on above: Patient Question Start: 04-21-2022 End: 04-21-2022 Patient encounter procedure Michael Shah Edd VELASCO Work Phone: [facility] [place] Comment on above: Dysthymia (Primary D x); Situational insomnia; Arthritis, multiple joint involvement; IFG (impaired fasting glucose); Obesity, Class II, BMI 35-39.9; Fatigue, unspecified type; Iron deficiency Start: 02-16-2022 End: 02-16-2022 Patient encounter procedure Michael Alyssa Edd VELASCO Work Phone: [facility] [place] Comment on above: Dysthymia (Primary D x); Need for influenza vaccination; Arthritis, multiple joint involvement; IFG (impaired fasting glucose); Obesity, Class II, BMI 35-39.9; Fatigue, unspecified type; Iron deficiency Start: 01-16-2022 End: 01-16-2022 Patient encounter procedure Raymundo De León MD Work Phone: General Surgery Comment on above: Gastroesophageal ref lux disease with esophagitis without hemorrhage (Primary Dx) Start: 01-08-2022 End: 01-08-2022 Subsequent hospital visit by physician Raymundo De León MD Work Phone: Ambulatory Surgery Comment on above: Gastroesophageal ref lux disease with esophagitis without hemorrhage [K21.00] Start: 12-31-2021 Telephone encounter Joshua Jozef) [facility] Comment on above: Pacemaker Check Start: 12-18-2021 End: 12-18-2021 Patient encounter procedure Raymundo De León MD Work Phone: General Surgery Comment on above: Gastroesophageal ref lux disease with esophagitis without hemorrhage (Primary Dx) Start: 10-20-2021 End: 10-20-2021 Office outpatient visit 25 minutes Nunu Gonzalez PA-C Work Phone: [facility] Comment on above: Urinary frequency (P rimary Dx); Glucosuria Start: 09-10-2021 End: 09-10-[address] Michael Puag Work Phone: [facility]-Laboratory Start: 08-06-2021 Refill Katia Dias Work Phone: General Surgery Comment on above: Refill Request Start: 06-19-[address] ash TRUJILLO Work Phone: [facility] Comment on above: Results Start: 06-16-2021 End: 06-16-[address] Michael Puga Work Phone: [facility] Start: 06-09-2021 End: 06-09-2021 Admission to same day surgery center Dr. Michael Puga Work Phone: [facility]-Bed Setter/Special Procedures Start: 06-02-2021 End: 06-02-[address] Michael Puga Work Phone: [facility]-Radiology, [facility] Start: 06-02-2021 End: 06-02-[address] Michael Puga Work Phone: [facility] Start: 12-21-2020 End: 12-21-2020 Emergency department patient visit Kat Gleason [facility] Procedures Date Procedure Procedure Detail Performing Clinician Start: 10-31-2024 X-ray of chest, PA and lateral views Dr. Michael Puga DO Work Phone: Start: 08-30-2024 Hemoglobin A1c/Hemoglobin.total in Blood Michael Puga DO Work Phone: Start: 04-30-[address] Michael Puga DO Work Phone: Start: 04-30-2024 SARS-CoV-2, Influenza & RSV (PCR) Dr. Nellie Puga DO Work Phone: Start: 04-30-[address] Michael Puga DO Work Phone: Start: 04-30-2024 CT angiography of chest with contrast Dr. Michael Puga DO Work Phone: Start: 04-30-2024 X-ray of chest, PA and lateral views Dr. Michael Puga DO Work Phone: Start: 03-31-2024 Esophagogastroduodenoscopy transoral diagnostic Sharon Jarrett APRN.HATCHERY MAN Work Phone: Start: 04-05-2023 [employer] COVID-19 VACCINE (2022- SEASON) AGE 12+ YR Michael Puga DO Work Phone: Start: 04-05-2023 INFLUENZA VACCINE, PRSV FREE, AGE 65+ YR, HIGH DOSE, QUADRIVALENT (FLUZONE HIGH-DOSE) Michael Puga DO Work Phone: Start: 12-28-2022 Radiologic exam chest 2 views Michael car DO Work Phone: Start: 12-28-2022 Brncdilat rspse spmtry pre&post-brncdilat admn Michael Puga DO Work Phone: Start: 06-04-2022 Ecg routine ecg w/least 12 lds i&r only [facility] Provider Start: 02-16-2022 INFLUENZA SEASONAL QUADRIVALENT HIGH DOSE AGE 65+ Michael Puga DO Work Phone: Start: 01-08-2022 Esophagogastroduodenoscopy transoral diagnostic Raymundo De León MD Work Phone: Start: 10-20-2021 Gluc bld gluc mntr dev cleared fda spec home use [facility] Provider Start: 10-20-2021 Urnls dip stick/tablet rgnt auto w/o microscopy Holly Clay MANAGER UTILITY.HATCHERY MAN Work Phone: Start: 06-02-2021 Plain chest X-ray Dr. Michael Puga Work Phone: Start: 12-21-2020 End: 12-21-2020 EKG impression Bernie Baezaedithback Start: 12-03-2016 End: 12-03-2016 Pm device progr eval, dual Gallo Hickey MD Start: 10-22-2016 End: 10-22-2016 Follow Up Appt 6 months Loli Knapp Start: 10-22-2016 End: 10-22-2016 MMLoli Hickey MD Start: 06-03-2016 End: 06-03-2016 Pm device progr eval, dual Gallo Hickey MD Start: 04-15-2016 End: 04-15-2016 Dietary management education, guidance, and counseling Delias Juárez RN Start: 04-15-2016 End: 04-15-2016 TOWER DIRECTOR Anabel Horne PA-C Work Phone: Start: 04-15-2016 End: 04-15-2016 Follow Up Appt 6 months Anabel Horne PA-C Work Phone: Start: 12-02-2015 End: 04-06-2016 Follow Up Appt 3 months Anabel Horne PA-C Work Phone: Start: 12-02-2015 End: 04-06-2016 Pacer Clinic Anabel Horne PA-C Work Phone: Start: 12-02-2015 End: 12-02-2015 Pm device progr eval, dual Anabel Horne PA-C Work Phone: Start: 08-30-2015 End: 08-30-2015 Follow Up Appt 6 months Anabel Horne PA-C Work Phone: Start: 08-30-2015 End: 08-30-2015 Follow Up Appt 6 weeks Anabel Horne PA-C Work Phone: Start: 08-30-2015 End: 08-30-2015 MMM Anabel Horne PA-C Work Phone: Start: 06-11-2015 End: 06-26-2015 24 hour holter monitor Gallo Hickey MD Start: 06-11-2015 End: 06-18-2015 Echocardiography Gallo Hickey MD Start: 05-28-2015 End: 05-28-2015 *BMP Gallo Hickey MD Start: 05-28-2015 End: 05-30-2015 Carotid duplex Gallo Hickey MD Start: 05-28-2015 End: 05-28-2015 Follow Up Appt 3 months Loli Knapp Start: 05-28-2015 End: 08-16-2015 Follow Up Appt 6 months Loli Knapp Start: 05-28-2015 End: 05-28-2015 MMLoli Hickey MD Start: 05-28-2015 End: 08-16-2015 Pacer Clinic Gallo Hickey MD Start: 05-28-2015 End: 05-29-2015 Pm device progr eval, dual Gallo Hickey MD Start: 11-22-2014 End: 11-22-2014 TOWER DIRECTOR Anabel Horne PA-C Work Phone: Start: 11-22-2014 End: 11-23-2014 Documentation of current medications Anabel Horne PA-C Work Phone: Start: 11-22-2014 End: 11-22-2014 Electrocardiogram, complete Anabel Horne PA-C Work Phone: Start: 11-22-2014 End: 08-16-2015 Follow Up Appt 3 months Loli Knapp Start: 11-22-2014 End: 11-22-2014 Follow Up Appt 6 months Anabel Horne PA-C Work Phone: Start: 11-22-2014 End: 08-16-2015 Pacer Clinic Gallo Hickey MD Start: 11-22-2014 End: 08-16-2015 Pm device progr pito, dual Gallo Hickey MD Start: 07-25-2014 End: 11-07-2014 Follow Up Appt 6 months Lloi Knapp Start: 07-25-2014 End: 11-07-2014 Pacer Clinic Gallo Hickey MD Start: 07-25-2014 End: 07-25-2014 Pm device progr wayneal, dual Gallo Hickey MD Start: 05-25-2014 End: 05-26-2014 Documentation of current medications Gallo Hickey MD Start: 05-25-2014 End: 11-07-2014 Follow Up Appt 6 months Loli Knapp Start: 05-25-2014 End: 05-25-2014 MMM Gallo Hickey MD Start: 05-25-2014 End: 11-07-2014 Pacer Clinic Gallo Hickey MD Start: 05-25-2014 End: 05-25-2014 Pm device progr pito, dual Gallo Hickey MD Start: 01-26-2014 End: 11-07-2014 Follow Up Appt 6 months Loli Knapp Start: 01-26-2014 End: 11-07-2014 Pacer Clinic Gallo Hickey MD Start: 01-26-2014 End: 01-26-2014 Pm device progr pito, dual Gallo Hickey MD Start: 11-22-2013 End: 11-22-2013 TOWER DIRECTOR Anabel Horne PA-C Work Phone: Start: 11-22-2013 End: 11-22-2013 Follow Up Appt 6 months Anabel Horne PA-C Work Phone: Start: 10-25-2013 End: 11-22-2013 Follow Up Appt 3 months Loli Knapp Start: 10-25-2013 End: 11-22-2013 Pacer Clinic Gallo Hickey MD Start: 10-25-2013 End: 11-22-2013 Pm device progr pito, dual Gallo Hickey MD Start: 08-16-2013 End: 08-16-2013 Follow Up Appt Other Anabel Horne PA-C Work Phone: Start: 07-19-2013 End: 07-20-2013 *BMP Anabel Horne PA-C Work Phone: Start: 07-19-2013 End: 07-20-2013 *CBC with Differential Anabel Horne PA-C Work Phone: Start: 07-19-2013 End: 07-19-2013 Follow Up Appt 1 month Anabel Horne PA-C Work Phone: Start: 07-19-2013 End: 07-20-2013 Magnesium Anabel Horne PA-C Work Phone: Start: 07-19-2013 End: 07-19-2013 MM Anabel Horne PA-C Work Phone: Start: 07-18-2013 End: 07-19-2013 Follow Up Appt 3 months Loli Knapp Start: 07-18-2013 End: 07-19-2013 Pacer Clinic Gallo Hickey MD Start: 07-18-2013 End: 07-19-2013 Pm device progr eval, dual Gallo Hickey MD Start: 05-24-2013 End: 05-26-2013 *BMP Anabel Horne PA-C Work Phone: Start: 05-24-2013 End: 05-24-2013 TOWER DIRECTOR Anabel Horne PA-C Work Phone: Start: 05-24-2013 End: 05-24-2013 Follow Up Appt 6 months Anabel Horne PA-C Work Phone: Start: 05-24-2013 End: 07-18-2013 Follow Up Appt Other Anabel Horne PA-C Work Phone: Start: 04-10-2013 End: 05-16-2013 Follow Up Appt 3 months Loli Knapp Start: 04-10-2013 End: 05-16-2013 Pacer Clinic Gallo Hickey MD Start: 04-10-2013 End: 04-10-2013 Pm device progr eval, dual Gallo Hickey MD Start: 12-07-2012 End: 05-16-2013 Follow Up Appt 3 months Loli Knapp Start: 12-07-2012 End: 05-16-2013 Pacer Clinic Gallo Hickey MD Start: 12-07-2012 End: 05-16-2013 Pm device progr eval, dual Gallo Hickey MD Start: 11-15-2012 End: 11-15-2012 Follow Up Appt 6 months Loli Knapp Start: 11-15-2012 End: 11-15-2012 MMM Gallo Hickey MD Start: 05-18-2012 End: 05-16-2013 *BMP Gallo Hickey MD Start: 05-18-2012 End: 05-16-2013 *CBC with Differential Gallo Hickey MD Start: 05-18-2012 End: 05-18-2012 eRx Transmitted during this visit (Medicare only) Gallo Hickey MD Start: 05-18-2012 End: 05-16-2013 Follow Up Appt 6 months Loli Knapp Start: 05-18-2012 End: 05-16-2013 Thyroid stimulating hormone (TSH) Gallo Hickey MD Start: 05-18-2012 End: 05-16-2013 Thyroxine (T4) [Mass/volume] in Serum or Plasma Gallo Hickey MD Start: 10-27-2011 End: 10-27-2011 Follow Up Appt 6 months Loli Knapp Start: 07-14-2011 End: 05-16-2013 Follow Up Appt 3 months Loli Knapp Start: 05-05-2011 End: 05-07-2011 *BMP Gallo Hickey MD Start: 05-05-2011 End: 05-07-2011 aPTT Gallo Hickey MD Start: 05-05-2011 End: 05-06-2011 CBC W Auto Differential panel - Blood Gallo Hickey MD Start: 05-05-2011 End: 05-06-2011 Coagulation factor induced.INR assay in platelet poor plasma Gallo Hickey MD Start: 05-05-2011 End: 05-14-2011 Electrocardiogram, complete Gallo Dumont i, MD Start: 05-05-2011 End: 05-16-2013 Follow Up Appt Other Gallo Hickey MD Start: 05-05-2011 End: 05-14-2011 Left Heart Cath Gallo Hickey MD Start: 04-07-2011 End: 04-07-2011 Follow Up Appt 3 months Loli Knapp Plan of Treatment Date Care Activity Detail Author Start: 12-24-2028 Urine microalbumin profile DTaP,Tdap,Td Vaccine (3 - Td or Tdap) [facility] Start: 08-31-2027 Diabetes Screening Diabetes Screening [facility] Start: 05-11-2027 Diabetes Screening Diabetes Screening [facility] Start: 11-24-2026 Diabetes Screening Diabetes Screening [facility] Start: 03-31-2026 Diabetes Screening Diabetes Screening [facility] Start: 12-15-2025 DIABETES SCREEN DIABETES SCREEN [facility] Start: 12-15-2025 Diabetes Screening Diabetes Screening [facility] Start: 09-17-2025 DIABETES SCREEN DIABETES SCREEN [facility] Start: 06-04-2025 DIABETES SCREEN DIABETES SCREEN [facility] Start: 02-13-2025 DIABETES SCREEN DIABETES SCREEN [facility] Start: 01-01-2025 Influenza vaccination Influenza Vaccine (#1) [facility] Start: 12-08-2024 End: 12-08-2024 Patient encounter procedure 12/08/2024 2:40 PM EDT Office Visit [facility] [place] [address] [place] [address] Michael Puga DO [address] [place] [address] 3 month follow up [facility] [place] Comment on above: 3 month follow up Start: 10-27-2024 End: 10-27-2024 Patient encounter procedure 10/27/2024 12:45 PM EDT OT/PT/Speech Visit COUNTS INCLUDE 234 BEDS AT THE [facility] [address] [place] [address] Sarah Merchant, PT [address] [place], [place] [id number] CONSULT/WEAKNESS COUNTS INCLUDE 234 BEDS AT THE [facility] Comment on above: CONSULT/WEAKNESS Start: 10-18-2024 End: 10-18-2024 Patient encounter procedure 10/18/2024 1:30 PM EDT OT/PT/Speech Visit COUNTS INCLUDE 234 BEDS AT THE [facility] [address] [place] [address] Wilfred Mcclellan, LIME KILN OPERATOR [address] [place], [place] [id number] CONSULT/WEAKNESS COUNTS INCLUDE 234 BEDS AT THE [facility] Comment on above: CONSULT/WEAKNESS Start: 10-13-2024 Covid-19 Vaccine ( season) Covid-19 Vaccine ( season) [facility] Comment on above: Postponed from 08/05/2023 (Declined at t his time) Start: 10-13-2024 RSV Vaccine (1 - 1-dose 60+ series) RSV Vaccine (1 - 1-dose 60+ series) [facility] Comment on above: Postponed from 2001 (Declined at t his time) Start: 10-13-2024 RSV Vaccine (1 - 1-dose 75+ series) RSV Vaccine (1 - 1-dose 75+ series) [facility] Comment on above: Postponed from 2016 (Declined at t his time) Start: 10-09-2024 End: 10-09-2024 Patient encounter procedure 10/09/2024 12:45 PM EDT OT/PT/Speech Visit COUNTS INCLUDE 234 BEDS AT THE [facility] [address] [place] [address] Joy Sun PTA CONSULT/WEAKNESS COUNTS INCLUDE 234 BEDS AT THE [facility] Comment on above: CONSULT/WEAKNESS Start: 10-02-2024 End: 10-02-2024 Patient encounter procedure 10/02/2024 3:00 PM EDT OT/PT/Speech Visit COUNTS INCLUDE 234 BEDS AT THE [facility] [address] [place] [address] Pj Bledsoe, PT [address] [place] [address] CONSULT/WEAKNESS COUNTS INCLUDE 234 BEDS AT THE [facility] Comment on above: CONSULT/WEAKNESS Start: 09-28-2024 End: 09-28-2024 Patient encounter procedure 09/28/2024 2:15 PM EDT OT/PT/Speech Visit COUNTS INCLUDE 234 BEDS AT THE [facility] [address] [place] [address] Sarah Merchant, PT [address] [place] [address] CONSULT/WEAKNESS COUNTS INCLUDE 234 BEDS AT THE [facility] Comment on above: CONSULT/WEAKNESS Start: 08-30-2024 End: 08-30-2024 Patient encounter procedure 08/30/2024 3:00 PM EDT Office Visit [facility] [place] [address] [place] [address] Michael Puga, DO [address] [place] [address] 6 month follow up [facility] [place] Comment on above: 6 month follow up Start: 07-10-2024 End: 07-10-2024 Patient encounter procedure 07/10/2024 3:20 PM EDT Office Visit [facility] [place] [address] [place] [address] Key Portillo, MANAGER UTILITY.HATCHERY MAN [address] [place] [address] Requesting increase in Paxil [facility] [place] Comment on above: Requesting increase in Paxil Start: 06-21-2024 End: 06-21-2024 Patient encounter procedure 06/21/2024 5:20 PM EST Office Visit [facility] [place] [address] [place] [address] Michael Puga DO [address] [facility] [place] [address] 6 wk f/u labs and meds [facility] [place] Comment on above: 6 wk f/u labs and meds Start: 05-26-2024 End: 08-25-2024 Comprehensive metabolic 2000 panel - Serum or Plasma COMPREHENSIVE METABOLIC PANEL Lab Routine Function kidney decreased Congestive heart failure, unspecified HF chronicity, unspecified heart failure type (HCC) Expected: 05/26/2024, Expires: 08/25/2024 [facility] Comment on above: Expected: 05/26/2024, Expires: Start: 05-26-2024 End: 08-25-2024 Natriuretic peptide.B prohormone N-Terminal [Mass/volume] in Serum or Plasma NT PRO BNP Lab Routine Function kidney decreased Congestive heart failure, unspecified HF chronicity, unspecified heart failure type (HCC) Expected: 05/26/2024, Expires: 08/25/2024 [facility] Work Phone: Comment on above: Expected: 05/26/2024, Expires: Start: 05-19-2024 End: 08-18-2024 CBC W Auto Differential panel - Blood COMPLETE BLOOD COUNT AND DIFFERENTIAL Lab Routine Congestive heart failure, unspecified HF chronicity, unspecified heart failure type (HCC) Function kidney decreased Expected: 05/19/2024, Expires: 08/18/2024 [facility] Comment on above: Expected: 05/19/2024, Expires: Start: 05-19-2024 End: 08-18-2024 Hepatic function 1999 panel - Serum or Plasma HEPATIC FUNCTION PNL Lab Routine Congestive heart failure, unspecified HF chronicity, unspecified heart failure type (HCC) Function kidney decreased Expected: 05/19/2024, Expires: 08/18/2024 [facility] Work Phone: Comment on above: Expected: 05/19/2024, Expires: Start: 05-19-2024 End: 08-18-2024 Natriuretic peptide.B prohormone N-Terminal [Mass/volume] in Serum or Plasma NT PRO BNP Lab Routine Congestive heart failure, unspecified HF chronicity, unspecified heart failure type (HCC) Function kidney decreased Expected: 05/19/2024, Expires: 08/18/2024 [facility] Comment on above: Expected: 05/19/2024, Expires: Start: 05-17-2024 End: 08-16-2024 Comprehensive metabolic 2000 panel - Serum or Plasma COMPREHENSIVE METABOLIC PANEL Lab STAT Function kidney decreased Congestive heart failure, unspecified HF chronicity, unspecified heart failure type (HCC) Expected: 05/17/2024, Expires: 08/16/2024 [facility] Work Phone: Comment on above: Expected: 05/17/2024, Expires: Start: 05-11-2024 End: 08-10-2024 Comprehensive metabolic 2000 panel - Serum or Plasma [facility] Comment on above: Expected: 05/11/2024, Expires: Start: 05-11-2024 End: 08-10-2024 Natriuretic peptide.B prohormone N-Terminal [Mass/volume] in Serum or Plasma [facility] Comment on above: Expected: 05/11/2024, Expires: Start: 05-11-2024 End: 08-10-2024 Thyrotropin [Units/volume] in Serum or Plasma [facility] Work Phone: Comment on above: Expected: 05/11/2024, Expires: Start: 05-11-2024 End: 08-10-2024 Thyroxine (T4) free [Mass/volume] in Serum or Plasma [facility] Comment on above: Expected: 05/11/2024, Expires: Start: 05-11-2024 End: 05-11-2024 Patient encounter procedure 05/11/2024 1:00 PM EST Office Visit [facility] [place] [address] [facility] [place] [address] Key Portillo, MANAGER UTILITY.HATCHERY MAN [address] [place] [address] TCM. [facility] Hosp f/u discharged 05-02-24. CHF [facility] [place] Comment on above: TCM. [facility] Hosp f/u discharged 05-02-24. C HF Start: 05-04-2024 End: 05-04-2024 Patient encounter procedure 05/04/2024 1:00 PM EST Office Visit [facility] [place] [address] [place] [address] Key Portillo, MANAGER UTILITY.HATCHERY MAN [address] [place] [address] right leg pain x 2 weeks [facility] Comment on above: right leg pain x 2 weeks Start: 05-03-2024 Advance Directive Discussion Advance Directive Discussion [facility] Start: 05-02-2024 Patient discharge [facility] Start: 05-01-2024 End: 05-01-2024 Patient encounter procedure 05/01/2024 2:15 PM EST OT/PT/Speech Visit COUNTS INCLUDE 234 BEDS AT THE [facility] [address] [place] [address] Sarah Merchant, PT [address] [place] [address] Right knee (referral in scanned docs) COUNTS INCLUDE 234 BEDS AT THE [facility] Comment on above: Right knee (referral in scanned docs) Start: 05-01-2024 Referral to service [facility] [facility] Start: 04-30-2024 End: 05-01-2024 [facility] Start: 04-30-2024 Dual pressure spontaneous ventilation support [facility] Start: 04-30-2024 Following clinical pathway protocol [facility] Start: 04-30-2024 Continuous pulse oximetry [facility] Start: 04-30-2024 Assessment of risk of venous thromboembolism [facility] Start: 04-30-2024 Elevation of affected extremity [facility] Start: 04-30-2024 Fall prevention [facility] Start: 04-30-2024 Inhalation therapy procedure [facility] Start: 04-30-2024 Insertion of catheter into peripheral vein [facility] Start: 04-30-2024 Introduction of urinary catheter [facility] Start: 04-30-2024 Measuring intake and output [facility] Start: 04-30-2024 Notification of physician [facility] Start: 04-30-2024 Oxygen therapy [facility] Start: 04-30-2024 Patient education [facility] Start: 04-30-2024 Patient referral to dietitian [facility] Start: 04-30-2024 Providing care according to standard [facility] Start: 04-30-2024 Provision of activity privileges [facility] Start: 04-30-2024 Referral to occupational therapist [facility] Start: 04-30-2024 Referral to service [facility] Start: 04-30-2024 Admission procedure [facility] Start: 04-27-2024 End: 04-27-2024 Patient encounter procedure 04/27/2024 11:40 AM EST Office Visit Family [facility] [address] [place] [address] Key Portillo, MANAGER UTILITY.[facility] [address] [place] [address] right leg pain x 2 weeks [facility] Comment on above: right leg pain x 2 weeks Start: 04-20-2024 End: 04-20-2024 Patient encounter procedure COUNTS INCLUDE 234 BEDS AT THE [facility] Comment on above: Right knee (referral in scanned docs) Start: 04-18-2024 End: 04-18-2024 Patient encounter procedure 04/18/2024 1:30 PM EST OT/PT/Speech Visit COUNTS INCLUDE 234 BEDS AT THE [facility] [address] [place] [address] Sarah Merchant, PT [address] [place] [address] Right knee (referral in scanned docs) COUNTS INCLUDE 234 BEDS AT THE [facility] Comment on above: Right knee (referral in scanned docs) Start: 03-31-2024 End: 03-31-2024 Patient encounter procedure 03/31/2024 1:15 PM EST Appointment [facility] [address] [place] [address] Raymundo De León MD [address] [place] [address] [facility] Start: 03-31-2024 Subsequent hospital visit by physician 03/31/2024 10:10 AM EST Hospital Encounter [facility] [address] [place] [address] Raymundo De eLón MD [address] [place] [address] Yvonne Manley MD [address] [place] [address] Kelsea Mo APRN.CARTOGRAPHY/MAPPING TECHNICIAN Epigastric abdominal pain [R10.13] [facility] Comment on above: Epigastric abdominal pain [R10.13] Start: 03-27-2024 End: 03-27-2024 Anesthesia consultation 03/27/2024 2:20 PM EST PAT [facility] [address] [place] [address] 1, [facility] [place] [address] [place] [id number] EGD [facility] Comment on above: EGD Start: 03-23-2024 End: 03-23-2024 Patient encounter procedure 03/23/2024 12:45 PM EST OT/PT/Speech Visit COUNTS INCLUDE 234 BEDS AT THE [facility] [address] [place] [address] Sarah Merchant, PT [address] [place], [place] [phone] Right knee (referral in scanned docs) COUNTS INCLUDE 234 BEDS AT THE [facility] Comment on above: Right knee (referral in scanned docs) Start: 03-20-2024 End: 03-20-2024 Patient encounter procedure 03/20/2024 2:15 PM EST OT/PT/Speech Visit COUNTS INCLUDE 234 BEDS AT THE [facility] [address] [place] [address] Sarah Merchant, PT [address] [place], [place] [phone] Right knee (referral in scanned docs) COUNTS INCLUDE 234 BEDS AT THE [facility] Comment on above: Right knee (referral in scanned docs) Start: 03-16-2024 End: 03-16-2024 Patient encounter procedure 03/16/2024 12:45 PM EST OT/PT/Speech Visit COUNTS INCLUDE 234 BEDS AT THE [facility] [address] [place], [place] [id number] Sarah Merchant, PT [address] [place], [place] [phone] Right knee (referral in scanned docs) COUNTS INCLUDE 234 BEDS AT THE [facility] Comment on above: Right knee (referral in scanned docs) Start: 03-14-2024 End: 03-14-2024 Patient encounter procedure 03/14/2024 10:00 AM EST OT/PT/Speech Visit COUNTS INCLUDE 234 BEDS AT THE [facility] [address] [place], [place] [phone] Joy Sun LIME KILN OPERATOR Right knee (referral in scanned docs) COUNTS INCLUDE 234 BEDS AT THE [facility] Comment on above: Right knee (referral in scanned docs) Start: 03-13-2024 End: 03-13-2024 Patient encounter procedure General Surgery Comment on above: Epigastric abdominal pain [R10.13] Epigastric abdominal pain [R10.13] - left VM stating she will be seeing Kimberlee and not Dr de león Start: 03-08-2024 End: 03-08-2024 Patient encounter procedure 03/08/2024 12:45 PM EST OT/PT/Speech Visit COUNTS INCLUDE 234 BEDS AT THE [facility] [address] [place] [address] Joy Sun, LIME KILN OPERATOR Right knee (referral in scanned docs) COUNTS INCLUDE 234 BEDS AT THE [facility] Comment on above: Right knee (referral in scanned docs) Start: 03-02-2024 End: 03-02-2024 Patient encounter procedure 03/02/2024 12:45 PM EDT OT/PT/Speech Visit COUNTS INCLUDE 234 BEDS AT THE [facility] [address] [place], [place] [phone] Sarah Merchant, PT [address] [place], [place] [phone] Right knee (referral in scanned docs) COUNTS INCLUDE 234 BEDS AT THE [facility] Comment on above: Right knee (referral in scanned docs) Start: 03-01-2024 End: 03-01-2024 Patient encounter procedure 03/01/2024 5:40 PM EDT Office Visit [facility] [place] [address] [place] [address] Michael Puga DO [address] [facility] [place] [address] 3 month follow up [facility] Comment on above: 3 month follow up Start: 02-17-2024 End: 02-17-2024 Patient encounter procedure 02/17/2024 3:45 PM EDT OT/PT/Speech Visit COUNTS INCLUDE 234 BEDS AT THE [facility] [address] [place] [address] Sarah Merchant, PT [address] [place], [place] [phone] Right knee (referral in scanned docs) COUNTS INCLUDE 234 BEDS AT THE [facility] Comment on above: Right knee (referral in scanned docs) Start: 02-14-2024 End: 02-14-2024 Patient encounter procedure 02/14/2024 1:30 PM EDT OT/PT/Speech Visit COUNTS INCLUDE 234 BEDS AT THE [facility] [address] [place] [address] Wilfred Mcclellan, LIME KILN OPERATOR [address] [place], [place] [phone] Right knee (referral in scanned docs) COUNTS INCLUDE 234 BEDS AT THE [facility] Comment on above: Right knee (referral in scanned docs) Start: 02-10-2024 End: 02-10-2024 Patient encounter procedure 02/10/2024 12:45 PM EDT OT/PT/Speech Visit COUNTS INCLUDE 234 BEDS AT THE [facility] [address] [place] [address] Sarah Merchant, PT [address] [facility], [place] [phone] Right knee (referral in scanned docs) COUNTS INCLUDE 234 BEDS AT THE [facility] Comment on above: Right knee (referral in scanned docs) Start: 02-07-2024 End: 02-07-2024 Patient encounter procedure 02/07/2024 2:15 PM EDT OT/PT/Speech Visit COUNTS INCLUDE 234 BEDS AT THE [facility] [address] [place] [address] Sarah Merchant, PT [address] [place], [place] [phone] Right knee (referral in scanned docs) COUNTS INCLUDE 234 BEDS AT THE [facility] Comment on above: Right knee (referral in scanned docs) Start: 02-03-2024 End: 02-03-2024 Patient encounter procedure 02/03/2024 3:45 PM EDT OT/PT/Speech Visit COUNTS INCLUDE 234 BEDS AT THE [facility] [address] [place] [address] Sarah Merchant, PT [address] [place], [place] [phone] Right knee (referral in scanned docs) COUNTS INCLUDE 234 BEDS AT THE [facility] Comment on above: Right knee (referral in scanned docs) Start: 01-31-2024 End: 01-31-2024 Patient encounter procedure 01/31/2024 2:15 PM EDT OT/PT/Speech Visit COUNTS INCLUDE 234 BEDS AT THE [facility] [address] [place] [address] Sarah Merchant, PT [address] [place], [place] [phone] Right knee (referral in scanned docs) COUNTS INCLUDE 234 BEDS AT THE [facility] Comment on above: Right knee (referral in scanned docs) Start: 01-26-2024 End: 01-26-2024 Patient encounter procedure 01/26/2024 3:00 PM EDT OT/PT/Speech Visit COUNTS INCLUDE 234 BEDS AT THE [facility] [address] [place] [address] Wilfred Mcclellan, LIME KILN OPERATOR [address] [facility], [place] [phone] Right knee (referral in scanned docs) COUNTS INCLUDE 234 BEDS AT THE [facility] Comment on above: Right knee (referral in scanned docs) Start: 01-18-2024 End: 01-18-2024 Patient encounter procedure 01/18/2024 1:30 PM EDT OT/PT/Speech Visit COUNTS INCLUDE 234 BEDS AT THE [facility] [address] [place] [address] Sarah Merchant, PT [address] [place], [place] [phone] RECHECK Right knee (referral in scanned docs) COUNTS INCLUDE 234 BEDS AT THE [facility] Comment on above: RECHECK Right knee (referral in scanned docs) Start: 01-17-2024 DIABETES SCREEN DIABETES SCREEN [facility] Start: 01-02-2024 Covid-19 Vaccine () Covid-19 Vaccine () [facility] Start: 01-02-2024 Covid-19 Vaccine () Covid-19 Vaccine () [facility] Start: 01-02-2024 Influenza vaccination Influenza Vaccine (#1) [facility] Start: 12-16-2023 End: 12-16-2023 Patient encounter procedure COUNTS INCLUDE 234 BEDS AT THE [facility] Comment on above: Right knee (referral in scanned docs) RECHECK Right knee ( referral in scanned docs) Start: 12-13-2023 End: 12-13-2023 Patient encounter procedure 12/13/2023 3:45 PM EDT OT/PT/Speech Visit COUNTS INCLUDE 234 BEDS AT THE [facility] [address] [place] [address] Sarah Merchant, PT [address] [place], [place] [phone] Right knee (referral in scanned docs) COUNTS INCLUDE 234 BEDS AT THE [facility] Comment on above: Right knee (referral in scanned docs) Start: 12-07-2023 End: 12-07-2023 Patient encounter procedure 12/07/2023 4:30 PM EDT OT/PT/Speech Visit COUNTS INCLUDE 234 BEDS AT THE [facility] [address] [place], [place] [phone] Wilfred Mcclellan, LIME KILN OPERATOR [address] [place], [place] [phone] Right knee (referral in scanned docs) COUNTS INCLUDE 234 BEDS AT THE [facility] Comment on above: Right knee (referral in scanned docs) Start: 12-02-2023 End: 12-02-2023 Patient encounter procedure 12/02/2023 3:45 PM EDT OT/PT/Speech Visit COUNTS INCLUDE 234 BEDS AT THE [facility] [address] [place] [address] Sarah Merchant, PT [address] [place], [place] [phone] Right knee (referral in scanned docs) COUNTS INCLUDE 234 BEDS AT [facility] Comment on above: Right knee (referral in scanned docs) Start: 12-01-2023 End: 12-01-2023 Patient encounter procedure 12/01/2023 1:20 PM EDT Office Visit [facility] [address] [place] [address] Michael Puga DO [address] [facility], [place] [address] follow up, review labs [facility] [place] Comment on above: follow up, review labs Start: 11-30-2023 End: 11-30-2023 Patient encounter procedure 11/30/2023 2:15 PM EDT OT/PT/Speech Visit COUNTS INCLUDE 234 BEDS AT THE [facility] [address] [place] [address] Sarah Merchant, PT [address] [place], [place] [phone] Right knee (referral in scanned docs) COUNTS INCLUDE 234 BEDS AT THE [facility] Comment on above: Right knee (referral in scanned docs) Start: 11-25-2023 End: 11-25-2023 Patient encounter procedure 11/25/2023 8:30 AM EDT OT/PT/Speech Visit COUNTS INCLUDE 234 BEDS AT THE [facility] [address] [place] [address] Sarah Merchant, PT [address] [place], [place] [phone] Right knee (referral in scanned docs) COUNTS INCLUDE 234 BEDS AT THE [facility] Comment on above: Right knee (referral in scanned docs) Start: 11-13-2023 End: 02-12-2024 CBC W Auto Differential panel - Blood COMPLETE BLOOD COUNT AND DIFFERENTIAL Lab Routine Primary hypertension Expected: 11/13/2023, Expires: 02/12/2024 [facility] Comment on above: Expected: 11/13/2023, Expires: Start: 11-13-2023 End: 02-12-2024 Comprehensive metabolic 2000 panel - Serum or Plasma COMPREHENSIVE METABOLIC PANEL Lab Routine Primary hypertension Expected: 11/13/2023, Expires: 02/12/2024 [facility] Work Phone: Comment on above: Expected: 11/13/2023, Expires: Start: 11-13-2023 End: 02-12-2024 Hemoglobin A1c in Blood HEMOGLOBIN A1C Lab Routine IFG (impaired fasting glucose) Expected: 11/13/2023, Expires: 02/12/2024 [facility] Comment on above: Expected: 11/13/2023, Expires: Start: 11-13-2023 End: 02-12-2024 Lipid 1996 panel - Serum or Plasma LIPID PANEL BASIC Lab Routine Primary hypertension Expected: 11/13/2023, Expires: 02/12/2024 [facility] Comment on above: Expected: 11/13/2023, Expires: Start: 11-13-2023 End: 02-12-2024 Thyroxine (T4) free [Mass/volume] in Serum or Plasma T4 FREE/FREE THYROXINE Lab Routine Subclinical hypothyroidism Expected: 11/13/2023, Expires: 02/12/2024 [facility] Comment on above: Expected: 11/13/2023, Expires: Start: 11-13-2023 End: 02-12-2024 Triiodothyronine (T3) [Mass/volume] in Serum or Plasma T3 Lab Routine Subclinical hypothyroidism Expected: 11/13/2023, Expires: 02/12/2024 [facility] Comment on above: Expected: 11/13/2023, Expires: Start: 10-14-2023 End: 01-13-2024 Thyrotropin [Units/volume] in Serum or Plasma THYROID STIMULATING HORMONE Lab Routine Subclinical hypothyroidism Expected: 10/14/2023, Expires: 01/13/2024 [facility] Comment on above: Expected: 10/14/2023, Expires: Start: 10-14-2023 End: 10-14-2023 Patient encounter procedure 10/14/2023 1:20 PM EDT Office Visit [facility] [address] [place] [address] Key Portillo APRN.HATCHERY MAN [address] [place] [address] Hospital Follow Up (TCM thru 10/15) [facility] Comment on above: Hospital Follow Up (TCM thru 10/15) Start: 10-06-2023 End: 01-05-2024 Comprehensive metabolic 2000 panel - Serum or Plasma COMPREHENSIVE METABOLIC PANEL Lab Routine Diarrhea, unspecified type Expected: 10/06/2023, Expires: 01/05/2024 [facility] Work Phone: Comment on above: Expected: 10/06/2023, Expires: Start: 08-05-2023 Covid-19 Vaccine () Covid-19 Vaccine () [facility] Start: 07-08-2023 End: 10-07-2023 Thyrotropin [Units/volume] in Serum or Plasma TSH BLD Lab Routine Thyroid disease Expected: 07/08/2023, Expires: 10/07/2023 [facility] Work Phone: Comment on above: Expected: 07/08/2023, Expires: 4 Start: 07-08-2023 End: 10-07-2023 Thyroxine (T4) free [Mass/volume] in Serum or Plasma T4 FREE/FREE THYROX Lab Routine Thyroid disease Expected: 07/08/2023, Expires: 10/07/2023 [facility] Work Phone: Comment on above: Expected: 07/08/2023, Expires: Start: 07-08-2023 End: 10-07-2023 Triiodothyronine (T3) Free [Mass/volume] in Serum or Plasma T3 FREE BLD Lab Routine Thyroid disease Expected: 07/08/2023, Expires: 10/07/2023 [facility] Work Phone: Comment on above: Expected: 07/08/2023, Expires: 4 Start: 06-04-2023 COVID-19 VACCINE (3 - Booster for Pfizer series) COVID-19 VACCINE (3 - Booster for Pfizer series) [facility] Comment on above: Postponed from 09/27/2020 (Declined at t his time) Start: 06-04-2023 COVID-19 VACCINE (3 - Pfizer series) COVID-19 VACCINE (3 - Pfizer series) [facility] Comment on above: Postponed from 09/27/2020 (Declined at t his time) Start: 06-04-2023 Urine microalbumin profile DTAP,TDAP,TD (2 - Tdap) [facility] Comment on above: Postponed from 08/31/2013 (Declined at t his time) Start: 05-03-2023 Advance Directive Discussion Advance Directive Discussion [facility] Start: 04-21-2023 ANNUAL PCP TEAM CHRONIC DISEASE VISIT ANNUAL PCP TEAM CHRONIC DISEASE VISIT [facility] Start: 04-21-2023 BP CONTROLLED (<130/80) BP CONTROLLED (<130/80) [facility] Start: 03-24-2023 End: 05-24-2023 CBC panel - Blood by Automated count CBC Lab Routine Primary hypertension Expected: 03/24/2023, Expires: 05/24/2023 [facility] Work Phone: Comment on above: Expected: 03/24/2023, Expires: 4 Start: 03-24-2023 End: 05-24-2023 Cobalamin (Vitamin B12) [Mass/volume] in Serum or Plasma VITAMIN B12 BLOOD Lab Routine Vitamin B12 deficiency Expected: 03/24/2023, Expires: 05/24/2023 [facility] Work Phone: Comment on above: Expected: 03/24/2023, Expires: 4 Start: 03-24-2023 End: 05-24-2023 Comprehensive metabolic 2000 panel - Serum or Plasma COMP METABOLIC PANEL Lab Routine Primary hypertension Expected: 03/24/2023, Expires: 05/24/2023 [facility] Work Phone: Comment on above: Expected: 03/24/2023, Expires: 4 Start: 03-24-2023 End: 05-24-2023 Hemoglobin A1c in Blood HGB A1C Lab Routine IFG (impaired fasting glucose) Expected: 03/24/2023, Expires: 05/24/2023 [facility] Work Phone: Comment on above: Expected: 03/24/2023, Expires: 4 Start: 03-24-2023 End: 05-24-2023 Thyrotropin [Units/volume] in Serum or Plasma TSH BLD Lab Routine Fatigue, unspecified type Obesity, Class II, BMI 35-39.9 IFG (impaired fasting glucose) Expected: 03/24/2023, Expires: 05/24/2023 [facility] Work Phone: Comment on above: Expected: 03/24/2023, Expires: 4 Start: 03-24-2023 End: 05-24-2023 Thyroxine (T4) free [Mass/volume] in Serum or Plasma T4 FREE/FREE THYROX Lab Routine Fatigue, unspecified type Obesity, Class II, BMI 35-39.9 IFG (impaired fasting glucose) Expected: 03/24/2023, Expires: 05/24/2023 [facility] Work Phone: Comment on above: Expected: 03/24/2023, Expires: 4 Start: 02-16-2023 ANNUAL PCP TEAM CHRONIC DISEASE VISIT ANNUAL PCP TEAM CHRONIC DISEASE VISIT [facility] Start: 02-16-2023 BP CONTROLLED (<130/80) BP CONTROLLED (<130/80) [facility] Start: 01-01-2023 Covid-19 Vaccine ( season) Covid-19 Vaccine () [facility] Start: 01-01-2023 Influenza vaccination [facility] Start: 12-16-2022 ANNUAL PCP TEAM CHRONIC DISEASE VISIT ANNUAL PCP TEAM CHRONIC DISEASE VISIT [facility] Start: 09-19-2022 End: 11-19-2022 25-hydroxyvitamin D3 [Mass/volume] in Serum or Plasma VITAMIN D 25 HYDROXY Lab Routine Vitamin D deficiency Expected: 09/19/2022, Expires: 11/19/2022 [facility] Work Phone: Comment on above: Expected: 09/19/2022, Expires: Start: 09-19-2022 End: 11-19-2022 Cobalamin (Vitamin B12) [Mass/volume] in Serum or Plasma VITAMIN B12 BLOOD Lab Routine Vitamin B12 deficiency Expected: 09/19/2022, Expires: 11/19/2022 [facility] Work Phone: Comment on above: Expected: 09/19/2022, Expires: 3 Start: 09-19-2022 End: 11-19-2022 Comprehensive metabolic 2000 panel - Serum or Plasma COMP METABOLIC PANEL Lab Routine Fatigue, unspecified type Expected: 09/19/2022, Expires: 11/19/2022 [facility] Work Phone: Comment on above: Expected: 09/19/2022, Expires: Start: 09-19-2022 End: 11-19-2022 Hemoglobin A1c in Blood HGB A1C Lab Routine IFG (impaired fasting glucose) Expected: 09/19/2022, Expires: 11/19/2022 [facility] Work Phone: Comment on above: Expected: 09/19/2022, Expires: 3 Start: 09-19-2022 End: 11-19-2022 Iron and Iron binding capacity panel - Serum or Plasma IRON + TIBC Lab Routine Iron deficiency Expected: 09/19/2022, Expires: 11/19/2022 [facility] Work Phone: Comment on above: Expected: 09/19/2022, Expires: 3 Start: 09-19-2022 End: 11-19-2022 Lipid 1996 panel - Serum or Plasma LIPID PANEL BASIC Lab Routine Hyperlipidemia, unspecified hyperlipidemia type Expected: 09/19/2022, Expires: 11/19/2022 [facility] Work Phone: Comment on above: Expected: 09/19/2022, Expires: 3 Start: 06-13-2022 ANNUAL PCP TEAM CHRONIC DISEASE VISIT ANNUAL PCP TEAM CHRONIC DISEASE VISIT [facility] Start: 06-04-2022 End: 08-04-2022 25-hydroxyvitamin D3 [Mass/volume] in Serum or Plasma [facility] Work Phone: Comment on above: Expected: 06/04/2022, Expires: Start: 06-04-2022 End: 08-04-2022 CBC W Auto Differential panel - Blood [facility] Work Phone: Comment on above: Expected: 06/04/2022, Expires: 3 Start: 06-04-2022 End: 08-04-2022 Cobalamin (Vitamin B12) [Mass/volume] in Serum or Plasma [facility] Work Phone: Comment on above: Expected: 06/04/2022, Expires: Start: 06-04-2022 End: 08-04-2022 Comprehensive metabolic 2000 panel - Serum or Plasma [facility] Work Phone: Comment on above: Expected: 06/04/2022, Expires: 3 Start: 06-04-2022 End: 08-04-2022 Ferritin [Mass/volume] in Serum or Plasma [facility] Work Phone: Comment on above: Expected: 06/04/2022, Expires: 3 Start: 06-04-2022 End: 08-04-2022 Hemoglobin A1c in Blood [facility] Work Phone: Comment on above: Expected: 06/04/2022, Expires: 3 Start: 06-04-2022 End: 08-04-2022 Iron and Iron binding capacity panel - Serum or Plasma [facility] Work Phone: Comment on above: Expected: 06/04/2022, Expires: 3 Start: 06-04-2022 End: 08-04-2022 Natriuretic peptide.B prohormone N-Terminal [Mass/volume] in Serum or Plasma [facility] Work Phone: Comment on above: Expected: 06/04/2022, Expires: 3 Start: 06-04-2022 End: 08-04-2022 Thyrotropin [Units/volume] in Serum or Plasma [facility] Work Phone: Comment on above: Expected: 06/04/2022, Expires: 3 Start: 05-03-2022 ADVANCE DIRECTIVE DISCUSSION ADVANCE DIRECTIVE DISCUSSION [facility] Start: 01-01-2022 Influenza vaccination INFLUENZA (#1) [facility] Start: 05-03-2021 ADVANCE DIRECTIVE DISCUSSION ADVANCE DIRECTIVE DISCUSSION [facility] Start: 01-02-2021 COVID-19 VACCINE (3 - Booster for Pfizer series) COVID-19 VACCINE (3 - Booster for Pfizer series) [facility] Start: 09-27-2020 COVID-19 VACCINE (3 - Booster for Pfizer series) COVID-19 VACCINE (3 - Booster for Pfizer series) [facility] Start: 03-04-2019 BP CONTROLLED (<130/80) BP CONTROLLED (<130/80) [facility] Start: 05-12-2017 FECAL OCCULT BLOOD FECAL OCCULT BLOOD [facility] Start: 05-06-2017 End: 05-06-2017 Appointment Appointment [facility] Work Phone: Start: 12-03-2016 End: 12-03-2016 Appointment Appointment [facility] Work Phone: Start: 12-03-2016 End: 12-03-2016 Follow Up Appt 6 months Follow Up Appt 6 months [facility] Work Phone: Start: 12-03-2016 End: 12-03-2016 Pacer Clinic [facility] Work Phone: Start: 10-22-2016 End: 10-22-2016 Appointment Appointment [facility] Work Phone: Start: 10-22-2016 End: 10-22-2016 Follow Up Appt 6 months Follow Up Appt 6 months [facility] Work Phone: Start: 10-22-2016 End: 10-22-2016 MMM MMM [facility] Work Phone: Start: 06-03-2016 End: 06-03-2016 Follow Up Appt 6 months Follow Up Appt 6 months [facility] Work Phone: Start: 06-03-2016 End: 06-03-2016 [facility] [employer] Work Phone: Start: 2016 RSV Vaccine (1 - 1-dose 75+ series) RSV Vaccine (1 - 1-dose 75+ series) [facility] Start: 04-15-2016 End: 04-15-2016 TOWER DIRECTOR TOWER DIRECTOR [facility] Work Phone: Start: 04-15-2016 End: 04-15-2016 Follow Up Appt 6 months Follow Up Appt 6 months [facility] Work Phone: Start: 12-02-2015 End: 04-06-2016 Follow Up Appt 3 months Follow Up Appt 3 months [facility] Work Phone: Start: 12-02-2015 End: 04-06-2016 [facility] [employer] Work Phone: Start: 08-30-2015 End: 08-30-2015 Follow Up Appt 6 months Follow Up Appt 6 months [facility] Work Phone: Start: 08-30-2015 End: 08-30-2015 Follow Up Appt 6 weeks Follow Up Appt 6 weeks [facility] Work Phone: Start: 08-30-2015 End: 08-30-2015 MMM MMM [facility] Work Phone: Start: 06-11-2015 End: 06-11-2015 24 hour holter monitor 24 hour holter monitor [facility] [employer] Work Phone: Start: 06-11-2015 End: 06-11-2015 Echocardiography Echocardiogram (complete) [facility] [employer] Work Phone: Start: 05-28-2015 End: 05-28-2015 *BMP *BMP [facility] [employer] [facility] Work Phone: Start: 05-28-2015 End: 05-28-2015 Carotid duplex Carotid duplex [facility] Work Phone: Start: 05-28-2015 End: 05-28-2015 Follow Up Appt 3 months Follow Up Appt 3 months [facility] Work Phone: Start: 05-28-2015 End: 08-16-2015 Follow Up Appt 6 months Follow Up Appt 6 months [facility] Work Phone: Start: 05-28-2015 End: 05-28-2015 MMM MMM [facility] Work Phone: Start: 05-28-2015 End: 08-16-2015 Pacer Clinic Pacer Clinic [facility] Work Phone: Start: 01-16-2015 SHINGRIX VACCINE (1 of 2) SHINGRIX VACCINE (1 of 2) [facility] Start: 01-16-2015 SHINGRIX VACCINE (2 of 3) SHINGRIX VACCINE (2 of 3) [facility] Start: 11-22-2014 End: 11-22-2014 TOWER DIRECTOR TOWER DIRECTOR [facility] Work Phone: Start: 11-22-2014 End: 11-22-2014 Electrocardiogram, complete EKG (In office) [facility] Work Phone: Start: 11-22-2014 End: 08-16-2015 Follow Up Appt 3 months Follow Up Appt 3 months [facility] Work Phone: Start: 11-22-2014 End: 11-22-2014 Follow Up Appt 6 months Follow Up Appt 6 months [facility] Work Phone: Start: 11-22-2014 End: 08-16-2015 Pacer Clinic Pac[facility] Work Phone: Start: 07-25-2014 End: 11-07-2014 Follow Up Appt 6 months Follow Up Appt 6 months [facility] Work Phone: Start: 07-25-2014 End: 11-07-2014 Pacer Clinic Pacer Clinic [facility] Work Phone: Start: 05-25-2014 End: 11-07-2014 Follow Up Appt 6 months Follow Up Appt 6 months [facility] Work Phone: Start: 05-25-2014 End: 05-25-2014 MMM MMM [facility] Work Phone: Start: 05-25-2014 End: 11-07-2014 Pacer Clinic Pac[facility] Work Phone: Start: 01-26-2014 End: 11-07-2014 Follow Up Appt 6 months Follow Up Appt 6 months [facility] Work Phone: Start: 01-26-2014 End: 11-07-2014 Pacer Clinic Pacer Clinic [facility] Work Phone: Start: 11-22-2013 End: 11-22-2013 TOWER DIRECTOR TOWER DIRECTOR [facility] Work Phone: Start: 11-22-2013 End: 11-22-2013 Follow Up Appt 6 months Follow Up Appt 6 months [facility] Work Phone: Start: 10-25-2013 End: 11-22-2013 Follow Up Appt 3 months Follow Up Appt 3 months [facility] Work Phone: Start: 10-25-2013 End: 11-22-2013 Pacer Clinic Pacer Clinic [facility] Work Phone: Start: 08-31-2013 Urine microalbumin profile DTAP,TDAP,TD (2 - Tdap) [facility] Start: 08-16-2013 End: 08-16-2013 Follow Up Appt Other Follow Up Appt Other [facility] Work Phone: Start: 07-19-2013 End: 07-20-2013 *BMP *BMP [facility] Work Phone: Start: 07-19-2013 End: 07-20-2013 *CBC with Differential *CBC with Differential [facility] Work Phone: Start: 07-19-2013 End: 07-19-2013 Follow Up Appt 1 month Follow Up Appt 1 month [facility] Work Phone: Start: 07-19-2013 End: 07-20-2013 Magnesium *Magnesium [facility] Work Phone: Start: 07-19-2013 End: 07-19-2013 MMM MMM [facility] Work Phone: Start: 07-18-2013 End: 07-19-2013 Follow Up Appt 3 months Follow Up Appt 3 months [facility] Work Phone: Start: 07-18-2013 End: 07-19-2013 Pacer Clinic Pacer Clinic [facility] Work Phone: Start: 05-24-2013 End: 05-26-2013 *BMP *BMP [facility] Work Phone: Start: 05-24-2013 End: 05-24-2013 TOWER DIRECTOR TOWER DIRECTOR [facility] Work Phone: Start: 05-24-2013 End: 05-24-2013 Follow Up Appt 6 months Follow Up Appt 6 months [facility] Work Phone: Start: 05-24-2013 End: 07-18-2013 Follow Up Appt Other Follow Up Appt Other [facility] Work Phone: Start: 04-10-2013 End: 05-16-2013 Follow Up Appt 3 months Follow Up Appt 3 months [facility] Work Phone: Start: 04-10-2013 End: 05-16-2013 Pacer Clinic Pacer Clinic [facility] Work Phone: Start: 12-07-2012 End: 05-16-2013 Follow Up Appt 3 months Follow Up Appt 3 months [facility] Work Phone: Start: 12-07-2012 End: 05-16-2013 Pacer Clinic Pacer Clinic [facility] Work Phone: Start: 11-15-2012 End: 11-15-2012 Follow Up Appt 6 months Follow Up Appt 6 months [facility] Work Phone: Start: 11-15-2012 End: 11-15-2012 MMM MMM [facility] Work Phone: Start: 05-18-2012 End: 05-16-2013 *BMP *BMP [facility] Work Phone: Start: 05-18-2012 End: 05-16-2013 *CBC with Differential *CBC with Differential [facility] Work Phone: Start: 05-18-2012 End: 05-16-2013 Follow Up Appt 6 months Follow Up Appt 6 months [facility] Work Phone: Start: 05-18-2012 End: 05-16-2013 Thyroid stimulating hormone (TSH) *TSH [facility] Work Phone: Start: 05-18-2012 End: 05-16-2013 Thyroxine (T4) *T4 (Total) [facility] Work Phone: Start: 10-27-2011 End: 10-27-2011 Follow Up Appt 6 months Follow Up Appt 6 months [facility] Work Phone: Start: 07-14-2011 End: 05-16-2013 Follow Up Appt 3 months Follow Up Appt 3 months [facility] Work Phone: Start: 05-05-2011 End: 05-07-2011 *BMP *BMP [facility] Work Phone: Start: 05-05-2011 End: 05-06-2011 aPTT *PTT-Partial Thromboplastin Time [facility] Work Phone: Start: 05-05-2011 End: 05-06-2011 aPTT Coag time (PPP) *PTT-Partial Thromboplastin Time [facility] Work Phone: Start: 05-05-2011 End: 05-06-2011 CBC W Auto Differential panel - Blood *CBC without Diff [facility] Work Phone: Start: 05-05-2011 End: 05-06-2011 Chest x-ray X-Ray, Chest, PA & Lateral [facility] Work Phone: Start: 05-05-2011 End: 05-06-2011 Coagulation factor induced.INR assay in platelet poor plasma *PT/INR [facility] Work Phone: Start: 05-05-2011 End: 05-07-2011 Electrocardiogram, complete EKG (In office) [facility] Work Phone: Start: 05-05-2011 End: 05-16-2013 Follow Up Appt Other Follow Up Appt Other [facility] Work Phone: Start: 05-05-2011 End: 05-06-2011 Left Heart Cath Left Heart Cath [facility] [employer] Work Phone: Start: 04-07-2011 End: 04-07-2011 Follow Up Appt 3 months Follow Up Appt 3 months [facility] [employer] Work Phone: Start: 04-02-2006 Medicare Annual Wellness Visit Medicare Annual Wellness Visit [facility] Start: 2001 RSV Vaccine (1 - 1-dose 60+ series) RSV Vaccine (1 - 1-dose 60+ series) [facility] Bacteria identified in Urine by Culture URINE CULTURE Microbiology Routine Urinary frequency 10/20/2021 4:08 PM EDT [facility] Work Phone: End: 06-04-2023 ECG COMPLETE ECG COMPLETE ECG Routine SOB (shortness of breath) on exertion 1 Occurrences starting 06/04/2022 until 06/04/2023 [facility] Work Phone: Comment on above: 1 Occurrences starting 06/04/2022 until 06/04/2023 ECG COMPLETE ECG COMPLETE ECG Fatigue, unspecified type SOB (shortness of breath) on exertion Bilateral leg edema 06/04/2022 3:25 PM EST [facility] End: 06-04-2023 Echocardiography ECHO Cardiology Routine SOB (shortness of breath) on exertion 1 Occurrences starting 06/04/2022 until 06/04/2023 [facility] Work Phone: Comment on above: 1 Occurrences starting 06/04/2022 until 06/04/2023 End: 12-18-2022 EGD DIAGNOSTIC EGD DIAGNOSTIC Endoscopy Routine Gastroesophageal reflux disease with esophagitis without hemorrhage 1 Occurrences starting 12/18/2021 until 12/18/2022 [facility] Work Phone: Comment on above: 1 Occurrences starting 12/18/2021 until 12/18/2022 End: 03-13-2025 EGD DIAGNOSTIC EGD DIAGNOSTIC Endoscopy Routine Epigastric abdominal pain Pulmonary hypertension (HCC) 1 Occurrences starting 03/13/2024 until 03/13/2025 [facility] Work Phone: Comment on above: 1 Occurrences starting 03/13/2024 until 03/13/2025 Glucose [Mass/volume ] in Serum or Plasma GLUCOSE, BLOOD (POC) Lab Routine Urinary frequency Glucosuria Ordered: 10/20/2021 [facility] Work Phone: Comment on above: Ordered: 10/20/2021 [facility] Heart Views W str ess and W radionuclide IV [facility] Noninvasive ear/puls e oximetry single deter NONINVASV OXYGEN SATUR;SINGLE Procedures Routine Congestive heart failure, unspecified HF chronicity, unspecified heart failure type (HCC) Obstructive lung disease (HCC) Chronic respiratory failure with hypoxia (HCC) Ordered: 09/07/2024 [facility] Work Phone: Comment on above: Ordered: 09/07/[address] [facility] Work Phone: End: 01-11-2024 Polysomnogram POLYSOMNOGRAM (PSG) Procedures Routine Fatigue, unspecified type 1 Occurrences starting 01/11/2023 until 01/11/2024 [facility] Work Phone: Comment on above: 1 Occurrences starting 01/11/2023 until 01/11/2024 End: 01-21-2024 Radiologic exam chest 2 views XR CHEST 2V FRONTAL/LAT Radiology Routine WELCH (dyspnea on exertion) 1 Occurrences starting 12/22/2022 until 01/21/2024 [facility] Work Phone: Comment on above: 1 Occurrences starting 12/22/2022 until 01/21/2024 End: 01-21-2024 SPIROMETRY - BASELINE AND POST DILATOR SPIROMETRY - BASELINE AND POST DILATOR PFT Routine WELCH (dyspnea on exertion) 1 Occurrences starting 12/22/2022 until 01/21/2024 [facility] Work Phone: Comment on above: 1 Occurrences starting 12/22/2022 until 01/21/2024 SPIROMETRY - BASELIN E AND POST DILATOR SPIROMETRY - BASELINE AND POST DILATOR PFT Routine WELCH (dyspnea on exertion) 12/28/2022 2:06 PM EDT [facility] Work Phone: SURGICAL PATHOLOGY [facility] Work Phone: Comment on above: Release Upon Ordering for 1 Occurrences starting 01/08/2022, 1 completed SURGICAL PATHOLOGY [facility] Work Phone: Comment on above: Release Upon Ordering for 1 Occurrences starting 03/31/2024, 1 completed [facility] End: 12-30-2024 XR Chest PA and Lateral XR CHEST 2V FRONTAL/LAT Radiology Routine Rhonchi Acute bronchitis, unspecified organism 1 Occurrences starting 12/01/2023 until 12/30/2024 [facility] Work Phone: Comment on above: 1 Occurrences starting 12/01/2023 until 12/30/2024 End: 06-10-2025 XR Chest PA and Lateral XR CHEST 2V FRONTAL/LAT Radiology Routine Congestive heart failure, unspecified HF chronicity, unspecified heart failure type (HCC) Hospital discharge follow-up 1 Occurrences starting 05/11/2024 until 06/10/2025 [facility] Comment on above: 1 Occurrences starting 05/11/2024 until 06/10/2025 [facility] Immunizations Immunization Date Immunization Notes Care Provider Deric coburn 03-01-2024 pneumococcal Conjuga te, unspecified formulation Michael Puga DO Work Phone: [facility] Work Phone: 03-01-2024 influenza, high dose seasonal, preservative-free Michael Puga DO Work Phone: [facility] 03-01-2024 pneumococcal conjuga te (PCV20) vaccine, 20 valent (PREVNAR 20) Michael Puga DO Work Phone: [facility] 03-01-2024 influenza virus vacc ine, unspecified formulation Keydylon Portillo MANAGER UTILITY.HATCHERY MAN Work Phone: [facility] 04-05-2023 COVID-19 vaccine, ag e 12+ yr, season ([employer]) Michael Puga DO Work Phone: [facility] Work Phone: 04-05-2023 influenza (HD-IIV4) vaccine, age 65+ yr, high dose, quadrivalent, PF (FLUZONE HIGH-DOSE) Michael Puga DO Work Phone: [facility] Work Phone: 04-05-2023 influenza virus vacc ine, unspecified formulation Sarah Merchant PT Work Phone: [facility] 02-16-2022 influenza, high-dose , quadrivalent vaccine (FLUZONE HIGH DOSE QUADRIVALENT) Michael Puga DO Work Phone: [facility] Work Phone: 02-16-2022 influenza virus vacc ine, unspecified formulation [employer] Work Phone: [facility] 03-13-2021 influenza, high-dose , quadrivalent vaccine (FLUZONE HIGH DOSE QUADRIVALENT) Katia Garcia PA-C Work Phone: [facility] 01-11-2019 influenza, high dose seasonal, preservative-free Katia Garcia PA-C Work Phone: [facility] Work Phone: 12-24-2018 tetanus toxoid, redu alisa diphtheria toxoid, and acellular pertussis vaccine, adsorbed Dr. Michael Puga Work Phone: [facility] 02-21-2018 influenza, high dose seasonal, preservative-free Katia Garcia PA-C Work Phone: [facility] 03-15-2017 influenza, high dose seasonal, preservative-free Katia Natalbany PA-C Work Phone: [facility] Work Phone: 01-19-2017 influenza, injectabl e, quadrivalent, preservative free Dr. Michael Puga DO Work Phone: [facility] 01-19-2017 influenza, seasonal, injectable Dr. Michael Puga Work Phone: [facility] Work Phone: 05-06-2016 pneumococcal polysaccharide vaccine, 23 valent Katia Jose PA-C Work Phone: [facility] Work Phone: 03-09-2016 influenza, high dose seasonal, preservative-free Katia Natalbany PA-C Work Phone: [facility] Work Phone: 02-13-2016 influenza, high dose seasonal, preservative-free Katia Jose PA-C Work Phone: [facility] Work Phone: 02-01-[address] Michael Puga Work Phone: [facility] 03-11-2015 pneumococcal conjuga te vaccine, 13 valent Katia Jose PA-C Work Phone: [facility] 02-17-2015 influenza, high dose seasonal, preservative-free Katia Jose PA-C Work Phone: [facility] 11-21-2014 zoster vaccine, live Katia Jose PA-C Work Phone: [facility] Work Phone: 04-12-2006 influenza virus vacc ine, unspecified formulation Katia Jose PA-C Work Phone: [facility] Work Phone: 04-12-2006 pneumococcal polysaccharide vaccine, 23 valent Katia Jose PA-C Work Phone: [facility] Work Phone: 09-01-2003 diphtheria and tetan us toxoids, adsorbed for pediatric use Katia Garcia PA-C Work Phone: [facility] Work Phone: Payers Date Payer Category Payer Self-pay [id number] 2015 Private Health Insurance JENNIFER BARRY PPO [id number] 2015-Present [phone] [address] [place] [address] O [id number] 2015 Private Health Insurance [id number] 2006 Medicare MEDICARE MEDICAR E A AND B [id number] 2006-Present [phone] [address] [address] [place] [address] Medicare [id number] 2006 Medicare [id number] 2006 Medicare [id number] 2005 Private Health Insurance [id number] Unknown Unknown [id number] 2.16.840.1.092820.3.579. 2.462 Unknown [id number] 2.16.840.1.777641.3.579. 2.462 Unknown [id number] 2.16.840.1.310257.3.579. 2.462 Unknown [id number] 2.16.840.1.736099.3.579. 2.462 Unknown [id number] 2.16.840.1.294924.3.579. 2.462 Unknown [id number] 2.16.840.1.882192.3.579. 2.462 Unknown [id number] 2.16.840.1.254394.3.579. 2.462 Unknown [id number] 2.16.840.1.418750.3.579. 2.462 Unknown [id number] 2.16.840.1.356505.3.579. 2.462 Unknown [id number] 2.16.840.1.641620.3.579. 2.462 Unknown [id number] 2.16.840.1.249175.3.579. 2.462 Unknown [id number] 2.16.840.1.601879.3.579. 2.462 Unknown [id number] 2.840.1.084660.3.579. 2.462 Unknown [id number] 2.16.840.1.570578.3.579. 2.462 Unknown [id number] 2.16.840.1.424122.3.579. 2.462 Unknown [id number] 2.16.840.1.833099.3.579. 2.462 Unknown [id number] 2.16840.1.189633.3.579. 2.462 Unknown [id number] 2.16.840.1.572383.3.579. 2.462 Unknown [id number] 2.16.840.1.181663.3.579. 2.462 Unknown [id number] 2.16.840.1.117948.3.579. 2.462 Unknown [id number] 2.16.840.1.466981.3.579. 2.462 Unknown [id number] 2.16.840.1.690280.3.579. 2.462 Unknown [id number] 2.16.840.1.459317.3.579. 2.462 Unknown [id number] 2.16.840.1.724362.3.579. 2.462 Unknown [id number] 2.16.840.1.396835.3.579. 2.462 Unknown [id number] 2.16.840.1.459373.3.579. 2.462 Unknown [id number] 2.16.840.1.080864.3.579. 2.462 Unknown [id number] 2.16.840.1.182124.3.579. 2.462 Unknown [id number] 2.16.840.1.782460.3.579. 2.462 Unknown [id number] 2.16.840.1.305175.3.579. 2.462 Unknown [id number] 2.16.840.1.011000.3.579. 2.462 Unknown [id number] 2.16.840.1.013861.3.579. 2.462 Unknown [id number] 2.16.840.1.602602.3.579. 2.462 Social History Date Type Detail Facility [facility] Start: 06-09-2021 Tobacco smokin g consumption unknown [facility] Start: 12-16-2021 End: 04-30-2024 Tobacco smoking status NHIS Never smoked tobacco [facility] Start: 06-13-2021 End: 08-17-2024 Alcohol intake Ex-drinker (finding) [facility] Start: 12-12-2018 History SDOH Food Worry 1 [facility] Start: 12-12-2018 History SDOH Transpo rt Med 2 [facility] Start: 1940 Sex Assigned At Not on file C [facility] Start: 08-23-2021 End: 02-16-2022 Exposure to SARS-CoV-2 (event) Not sure [facility] Start: 05-06-2017 None [place] [facility] Start: 12-24-2018 With Family [facility] Start: 1940 Sex Assigned At Female W [facility] Start: 12-16-2021 Tobacco use and exposure Smokeless tobacco non-user [facility] Work Phone: Start: 12-22-2022 End: 01-26-2024 History of Social function [facility] Start: 12-22-2022 End: 01-26-2024 Tobacco use panel [facility] Adult Depression Screening Assessment 0 [facility] (I/We) worried wheth er (my/our) food would run out before (I/we) got money to buy more. Never true [facility] Start: 07-14-2024 End: 07-20-2024 Sex Female (finding) [facility] Medical Equipment Procedure Code Equipment Code Equipment Origin al Text Equipment Identifier Dates ([id number]) Dual-chamber implantable pacemaker, rate-responsive ()[id number] FDA Start: 06-09-2021 Use with blood glucose test 2 times daily, Insulin Dep? No [id number] Start: 08-30-2024 Use with blood glucose test 2 times daily. Insulin Dep? No [id number] Start: 08-30-2024 Goals Date Patient Goal Desired Activity /State Personal health goal Functional Status Date Assessment Result Facility 05-02-2024 Functional status Ambulates;Chair [facility] Work Phone: 11-28-2013 Are you deaf, or do you have serious difficulty hearing No 11/28/2013 4:55 PM EDT Rain 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), HOTEL MAINTENANCE TECHNICIAN No [facility] 11-28-2013 Are you blind, or do you have serious difficulty seeing, even when wearing glasses No 11/28/2013 4:55 PM EDRain Ray Lpn (Hist), HOTEL MAINTENANCE TECHNICIAN No [facility] 11-28-2013 Do you have serious difficulty walking or climbing stairs No 11/28/2013 4:55 PM EDRain Ray Lpn (Hist), HOTEL MAINTENANCE TECHNICIAN No [facility] 11-28-2013 Do you have difficul ty dressing or bathing No 11/28/2013 4:55 PM EDRain Ray Lpn (Hist), HOTEL MAINTENANCE TECHNICIAN No [facility] 11-28-2013 Because of a physica l, mental, or emotional condition, do you have difficulty doing errands alone such as visiting a physician's office or shopping No 11/28/2013 4:55 PM EDT Rain 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), HOTEL MAINTENANCE TECHNICIAN No [facility] Mental Status Date Assessment Result Facility 05-02-2024 [facility] function [facility]: 11-28-2013 Because of a physica l, mental, or emotional condition, do you have serious difficulty concentrating, remembering, or making decisions No 11/28/2013 4:55 PM EDT Rain 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), HOTEL MAINTENANCE TECHNICIAN No [facility] Clinical Notes 10-17-2020 to 11-27-2024 Telephone Encounter - Yvonne Leiva - 11/27/2024 12:10 PM EDTTelephone Encounter - Yvonne Leiva - 11/27/2024 12:10 PM EDT Note Date & Type Note Facility 11-27-2024 Telephone encount er Note Prescription Refill Information The patient has been identified by name and date of : Yes Caregiver verified no other encounters exist for this prescription request: Yes Caregiver confirmed with patient/requestor that no other refills are due, in the near future, with this provider at this time: Yes The last office visit in the department: 08-30-24 Does the patient have a future office visit with this provider/department: Yes Requested Prescriptions Pending Prescriptions Disp Refills rosuvastatin (CRESTOR) 10 mg tablet 90 tablet 3 Sig: Take 1 tablet by mouth daily at bedtime. Yvonne Gomez November 27, 2024 12:12 PM [facility] 11-27-2024 Miscellaneous Notes Formattin g of this note is different from the original. Prescription Refill Information The patient has been identified by name and date of : Yes Caregiver verified no other encounters exist for this prescription request: Yes Caregiver confirmed with patient/requestor that no other refills are due, in the near future, with this provider at this time: Yes The last office visit in the department: 08-30-24 Does the patient have a future office visit with this provider/department: Yes Requested Prescriptions Pending Prescriptions Disp Refills rosuvastatin (CRESTOR) 10 mg tablet 90 tablet 3 Sig: Take 1 tablet by mouth daily at bedtime. Yvonne Gomez November 27, 2024 12:12 PM documented in this encounter [facility] 11-13-2024 Telephone encount er Note Call placed to patient and notified of below with verbalized understanding. Amanda Pratt RN [facility] 11-13-2024 Miscellaneous Notes Formattin g of this note might be different from the original. Call placed to patient and notified of below with verbalized understanding. Amanda Pratt RN Please have her start on gabapentin 100 mg in the evening daily x 1 week then increase to 200 mg in the evening daily x 1 week then can increase to 300 mg in the evening daily. If doing well on this dose, then let me know and I can change rx to 300 mg capsule/tablet Michael Puga DO The following approved medication requests have been transmitted electronically. Requested Prescriptions Signed Prescriptions Disp Refills gabapentin (NEURONTIN) 100 mg capsule 60 capsule 2 Sig: take 100 mg in the evening daily x 1 week then increase to 200 mg in the evening daily x 1 week then can increase to 300 mg in the evening daily Authorizing Provider: MICHAEL PUGA DO [facility] with [facility] calls to let provider know that patient continues to have bilateral leg pain and wants to go back on the Gabapentin as she was on before. Gabapentin was not prescribed by PCP. Call placed to patient for further information. Patient reports bilateral lower leg pain and neuropathy. She reports it gets worse once she has been up walking for a while. Reports that she took Gabapentin 300 mg once daily back in 2003 for same symptoms and it was helpful. She would like to try it again. Next OV is 12/08/2024. Patient didn't want to schedule anything sooner. Aware provider is out of office and will respond once able. Amanda Pratt RN documented in this encounter [facility] 11-13-2024 Telephone encount er Note Please have her start on gabapentin 100 mg in the evening daily x 1 week then increase to 200 mg in the evening daily x 1 week then can increase to 300 mg in the evening daily. If doing well on this dose, then let me know and I can change rx to 300 mg capsule/tablet Michael Puga DO The following approved medication requests have been transmitted electronically. Requested Prescriptions Signed Prescriptions Disp Refills gabapentin (NEURONTIN) 100 mg capsule 60 capsule 2 Sig: take 100 mg in the evening daily x 1 week then increase to 200 mg in the evening daily x 1 week then can increase to 300 mg in the evening daily Authorizing Provider: MICHAEL PUGA DO [facility] 11-11-2024 Telephone encount er Note Prescription Refill Information The patient has been identified by name and date of : Yes Caregiver verified no other encounters exist for this prescription request: Yes Caregiver confirmed with patient/requestor that no other refills are due, in the near future, with this provider at this time: Yes The last office visit in the department: 08/30/24 Does the patient have a future office visit with this provider/department: Yes Requested Prescriptions Pending Prescriptions Disp Refills LORazepam (ATIVAN) 0.5 mg [Pharmacy Med Name: LORazepam 0.5 MG Oral Tablet] 30 tablet 0 Sig: TAKE 1 TABLET BY MOUTH TWICE DAILY NEEDED FOR ANXIETY ATTACK Sherry Layne November 11, 2024 10:43 AM [facility] 11-11-2024 Miscellaneous Notes Formattin g of this note is different from the original. Prescription Refill Information The patient has been identified by name and date of : Yes Caregiver verified no other encounters exist for this prescription request: Yes Caregiver confirmed with patient/requestor that no other refills are due, in the near future, with this provider at this time: Yes The last office visit in the department: 08/30/24 Does the patient have a future office visit with this provider/department: Yes Requested Prescriptions Pending Prescriptions Disp Refills LORazepam (ATIVAN) 0.5 mg [Pharmacy Med Name: LORazepam 0.5 MG Oral Tablet] 30 tablet 0 Sig: TAKE 1 TABLET BY MOUTH TWICE DAILY NEEDED FOR ANXIETY ATTACK Sherry Layne November 11, 2024 10:43 AM documented in this encounter [facility] 11-10-2024 Telephone encount er Note Kell with [facility] calls to let provider know that patient continues to have bilateral leg pain and wants to go back on the Gabapentin as she was on before. Gabapentin was not prescribed by PCP. Call placed to patient for further information. Patient reports bilateral lower leg pain and neuropathy. She reports it gets worse once she has been up walking for a while. Reports that she took Gabapentin 300 mg once daily back in 2003 for same symptoms and it was helpful. She would like to try it again. Next OV is 12/08/2024. Patient didn't want to schedule anything sooner. Aware provider is out of office and will respond once able. Amanda Pratt RN [facility] 11-02-2024 Evaluation note Diagnosis Onset Date Resolution WELCH (dyspnea on exertion) acute November 02, 2024 9:16am skilled nursing current use of amiodarone acute November 02, 2024 9:16am Pulmonary hypertension acute November 02, 2024 9:16am Essential (primary) hypertension chronic November 02, 2024 9:16am History of permanent cardiac pacemaker placement June 09, 2021 chronic November 02, 2024 9:16am Paroxysmal atrial fibrillation chronic November 02, 2024 9:16am [facility] Work Phone: 1(557) 926-667907-02-2025 Telephone encounter Note* Telephone Encounter - Marisol Cano LPN - 11/01/2024 12:48 PM EDT Called spoke with pt she states tomorrow has a appointment with heart doctor then few days with lung doctor she states if does not get answers from them she will make appointment then and come in. [facility]07-02-2025 Miscellaneous Notes* Telephone Encounter - Marisol Cano LPN - 11/01/2024 12:48 PM EDT Called spoke with pt she states tomorrow has a appointment with heart doctor then few days with lung doctor she states if does not get answers from them she will make appointment then and come in. * Telephone Encounter - Key Portillo APRN.CNP - 11/01/2024 9:22 AM EDT Please see if patient is willing to make appointment due to Shortness of Breath as mentioned below. Thank you, Key Portillo APRN.HATCHERY MAN * Telephone Encounter - Key Portillo APRN.CARMELINA - 11/01/2024 9:22 AM EDT ----- Message from Sarah Merchant, PT sent at 10/27/2024 6:59 PM EDT ----- Hi Dr Puga, We're seeing Micahel for PT (she was referred by [facility]) and we've also seen her here inthe past for ortho/mobility issues. She's been reporting increased Shortness of Breath with minimalactivity which I definitely noticed today (I encouraged her to go to ER prn but she doesn't think it's necessary). She's also reporting increased low back pain (mostly with standing & walking). She has f/u appointments with her tin whiz machine operator & police booking officer next month but I think she needs to see someone soon for the Shortness of Breath. I also think a spine/pain mgmt consult would be a good idea for the chronic/worsening low back pain. Thanks, Sarah Merchant, PT [facility] Telephone encounter Note * Telephone Encounter - Key Portillo APRN.CARMELINA - 11/01/2024 9:22 AM EDT Please see if patient is willing to make appointment due to Shortness of Breath as mentioned below. Thank you, Key Portillo APRN.HATCHERY MAN [facility]07-02-2025 Telephone encounter Note* Telephone Encounter - Key Portillo APRN.CNP - 11/01/2024 9:22 AM EDT ----- Message from Sarah Merchant PT sent at 10/27/2024 6:59 PM EDT ----- Hi Dr Puga, We're seeing [facility] for PT (she was referred by [facility]) and we've also seen her here inthe past for ortho/mobility issues. She's been reporting increased Shortness of Breath with minimalactivity which I definitely noticed today (I encouraged her to go to ER prn but she doesn't think it's necessary). She's also reporting increased low back pain (mostly with standing & walking). She has f/u appointments with her tin whiz machine operator & police booking officer next month but I think she needs to see someone soon for the Shortness of Breath. I also think a spine/pain mgmt consult would be a good idea for the chronic/worsening low back pain. Thanks, Sarah Merchant PT [facility]07-01-2025 Radiology Diagnostic study note [facility] Imaging Services [address] [place], [place] [address] Chest PA and Lateral MR#: [id number] Acct: [id number] Name: MICHAEL MEIER Rep #: [id number] : 1940 F 84 From: Chris Bradley MD PCP: Dr. 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 Mediastinum: The mediastinal contour is stable. Lungs: Chronic interstitial changes in both lung ochoa without a superimposed acute pulmonary process Bones: Degenerative changes are identified within the thoracic spine. RAD/Chest PA and Lateral IMPRESSION: Chronic interstitial changes, no superimposed acute pulmonary process, no interval change Reading Location: [id number] CC: Dr. Michael Puga DO; NIDA Katz ~ [employer] Middleware Developer: Signed [facility]06-27-2025 NoteHNO ID: [id number] Author: SARAH MERCHANT, FRANTZ Service: ? Author Type: Physical Therapist Type: Progress Notes Filed: 10/27/2024 19:07 Note Text: Episode Visit Count: 4 Therapist That Will Accept/Oversee The Plan Of Care: Marilee Merchant Start of Care Date: 09/28/24 Onset Date: 04/30/24 Plan of Care Certification Date: 09/28/24 Next Certification Due Date: 12/27/24 REHABILITATION AND SPORTS THERAPY PHYSICAL THERAPY TREATMENT NOTE ASSESSMENT: Michael Meier tolerated the session with decreased activity tolerance due to low back pain, shortness of breath, decreased endurance, and fatigue. She demonstrated difficulty with generalized weakness AND balance deficits, difficulty walking, impaired mobility AND safety, low back pain, Shortness of Breath with minimal activity. The patient will continue to benefit from ongoing skilled physical therapy to progress toward set goals. PLAN FOR NEXT VISIT: continue to progress endurance, gait AND balance as tolerated. consult with PCP re concerns with SOB, testing/tx options for LBP SUBJECTIVE: pt reports tired of this. c/o increased LBP this past week. takes meloxicam AND tylenol daily. reports significant limitations with walking AND mobility d/t chronic LBP, SOB AND LE weakness. says SOB has gotten worse over the past year along with increased LBP (which she relates to spinal stenosis). she asked about dry needling, back brace etc. she's never seen a computer support specialist instructor, only ortho for hips. she also reports 10# weight gain over past 2 months due to steroids. has has f/u with police booking officer end of October (which she may try to move up) tin whiz machine operator in mid October, PCP in December. she recently got a lightweight rollator which is easier to fold etc but she still has trouble getting it in AND out of her car. she typically has freinds go with her to Dr gavni AND they help her walk in to office with cane Pain: Pain Pain Level: 8 (minimal to no pain sitting AND laying) Pain Location: Low Back/Lumbar Spine- Midline Description: Aching Frequency: Intermittent, Walking, Standing OBJECTIVE MEASURES WITH LEVEL OF FUNCTION: Gait Gait Distance (feet): 25-50' (appears limited by SOB > LBP) Gait Device: Rollator Gait Observation: antalgic unsteady gait, limited by LE weakness, SOB AND LBP Functional Performance Test Results Assistive Device: Rollator Vitals BP: 152/52 Pulse: 63 SpO2: 96 % RPE / Modified PRASHANT Scale: 8 TREATMENT: Therapeutic Exercise: 1: Nu-step L2x12' B UE/LE (rest breaks d/t fatigue AND SOB but not as bad as with walking AND standing exercises) 2: standing calf raises 10xB (limited by sig SOB) 3: standing hip ABd 10xR/L (limited by SOB) 4: discsused concerns with LBP, options for tx incl pain mgmt consult which pt is somewhat resistant to 5: discussed bigger concern of SOB, advised pt to go to ED/call squad prn (pt doesn't think it's that bad), discussed plans for f/u with Sofia - PT to consult with PCP, nurse Skilled Intervention: Patient was educated in proper exercise technique and purpose for exercises. Skilled judgment was used in selection of appropriate interventions. Correct performance of therapeutic exercises was facilitated with verbal and visual cuing. Educated patient on rationale for performing exercises in regards to decreasing fatigue , improving fitness, increase ease of ADL, and ROM and function . Patient education as noted. PT in constant attendance during use of Nu-step to review current status, monitor effort throughout activity and adjust set up as needed for maximum therapeutic benefit. Therapeutic Activity: 1: reviewed/practiced car transfer incl getting walker in car (pt was extremely SOB walking from clinic to car, needed help to get WW/rollator into her car) Skilled Intervention: Educated on proper/safe technique for activities performed today. Activity progression based on professional judgment. Gait Trainin: gait activities with rollator (limited by significant SOB) Skilled Intervention: Patient was provided stand by assist, supervision during pre-gait/gait training to prevent falls and insure safety. Skilled judgment used to assess selection of assistive device. Billing Therapeutic Exercise Treatment Minutes: 30 Therapeutic Activity Treatment Minutes: 5 Gait Training Treatment Minutes: 5 Skilled Treatment Time Minutes (timed and untimed codes): 40 Total Session Time (minutes): 47 Session Start Time : 1244 Session Stop Time : 1331 [facility] of Present illness Narrative* Sarah Merchant, PT - 10/27/2024 6:49 PM EDT Episode Visit Count: 4 Therapist That Will Accept/Oversee The Plan Of Care: Marilee Merchant Start of Care Date: 09/28/24 Onset Date: 04/30/24 Plan of Care Certification Date: 09/28/24 Next Certification Due Date: 12/27/24 REHABILITATION AND SPORTS THERAPY PHYSICAL THERAPY TREATMENT NOTE ASSESSMENT: Michael Meier tolerated the session with decreased activity tolerance due to low back pain, shortness of breath, decreased endurance, and fatigue. She demonstrated difficulty with generalized weakness & balance deficits, difficulty walking, impaired mobility & safety, low back pain, Shortness of Breath with minimal activity. The patient will continue to benefit from ongoing skilled physical therapy to progress toward set goals. PLAN FOR NEXT VISIT: continue to progress endurance, gait & balance as tolerated. consult with PCP re concerns with SOB, testing/tx options for LBP SUBJECTIVE: pt reports tired of this. c/o increased LBP this past week. takes meloxicam & tylenol daily. reports significant limitations with walking & mobility d/t chronic LBP, SOB & LE weakness. says SOB has gotten worse over the past year along with increased LBP (which she relatesto spinal stenosis). she asked about dry needling, back brace etc. she's never seen a computer support specialist instructor, only ortho for hips. she also reports 10# weight gain over past 2 months due to steroids. has has f/u with police booking officer end of October (which she may try to move up) tin whiz machine operator in mid October, PCP in December. she recently got a lightweight rollator which is easier to fold etc but she still has trouble getting it in & out of her car. she typically has freinds go with her to Dr gavin & theyhelp her walk in to office with cane Pain: Pain Pain Level: 8 (minimal to no pain sitting & laying) Pain Location: Low Back/Lumbar Spine- Midline Description: Aching Frequency: Intermittent, Walking, Standing OBJECTIVE MEASURES WITH LEVEL OF FUNCTION: Gait Gait Distance (feet): 25-50' (appears limited by SOB > LBP) Gait Device: Rollator Gait Observation: antalgic unsteady gait, limited by LE weakness, SOB & LBP Functional Performance Test Results Assistive Device: Rollator Vitals BP: 152/52 Pulse: 63 SpO2: 96 % RPE / Modified PRASHANT Scale: 8 TREATMENT: Therapeutic Exercise: 1: Nu-step L2x12' B UE/LE (rest breaks d/t fatigue & SOB but not as bad as with walking & standing exercises) 2: standing calf raises 10xB (limited by sig SOB) 3: standing hip ABd 10xR/L (limited by SOB) 4: discsused concerns with LBP, options for tx incl pain mgmt consult which pt is somewhat resistant to 5: discussed bigger concern of SOB, advised pt to go to ED/call squad prn (pt doesn't think it's that bad), discussed plans for f/u with Sofia - PT to consult with PCP, nurse Skilled Intervention: Patient was educated in proper exercise technique and purpose for exercises. Skilled judgment was used in selection of appropriate interventions. Correct performance of therapeutic exercises was facilitated with verbal and visual cuing. Educated patient on rationale for performing exercises in regards to decreasing fatigue , improvingfitness, increase ease of ADL, and ROM and function . Patient education as noted. PT in constant attendance during use of Nu-step to review current status, monitor effort throughoutactivity and adjust set up as needed for maximum therapeutic benefit. Therapeutic Activity: 1: reviewed/practiced car transfer incl getting walker in car (pt was extremely SOB walking from clinic to car, needed help to get WW/rollator into her car) Skilled Intervention: Educated on proper/safe technique for activities performed today. Activity progression based on professional judgment. Gait Trainin: gait activities with rollator (limited by significant SOB) Skilled Intervention: Patient was provided stand by assist, supervision during pre-gait/gait training to prevent falls and insure safety. Skilled judgment used to assess selection of assistive device. Billing Therapeutic Exercise Treatment Minutes: 30 Therapeutic Activity Treatment Minutes: 5 Gait Training Treatment Minutes: 5 Skilled Treatment Time Minutes (timed and untimed codes): 40 Total Session Time (minutes): 47 Session Start Time : 1244 Session Stop Time : 1331 Sarah Merchant PT [facility] Tele[facility] encounter Note * Telephone Encounter - Katia Marcano RN - 10/26/2024 8:39 AM EDT Pt called and is notified of providers message and instructions. Pt voices understanding, she states she will add the Tylenol. Katia Marcano RN [facility]06-26-2025 Miscellaneous Notes* Telephone Encounter - Katia Marcano RN - 10/26/2024 8:39 AM EDT Pt called and is notified of providers message and instructions. Pt voices understanding, she states she will add the Tylenol. Katia Marcano RN * Telephone Encounter - Michael Puga, - 10/25/2024 10:09 PM EDT No this dose can't be increased. We can consider changing the meloxicam to an alternative such as Celebrex 100 mg twice a day with food as needed. Or she can add on 500 mg of Tylenol every 6 hours for pain Michael Puga DO * Telephone Encounter - Tameka Marin RN - 10/25/2024 1:34 PM EDT Patient calling and asking if her Meloxicam can be increased at all? She currently takes 15 mg daily. She is receiving PT. Reports she has spinal stenosis and her back discomfort is currently an 8 out of 10 on pain scale. Reports her back hurts when she walks. Uses heat at times but only helps short term. Please advise. Tameka Marin RN [facility] Telephone encounter Note * Telephone Encounter - Michael Puga, - 10/25/2024 10:09 PM EDT No this dose can't be increased. We can consider changing the meloxicam to an alternative such as Celebrex 100 mg twice a day with food as needed. Or she can add on 500 mg of Tylenol every 6 hours for pain Michael Puga DO [facility]06-25-2025 Telephone encounter Note* Telephone Encounter - Tameka Marin RN - 10/25/2024 1:34 PM EDT Patient calling and asking if her Meloxicam can be increased at all? She currently takes 15 mg daily. She is receiving PT. Reports she has spinal stenosis and her back discomfort is currently an 8 out of 10 on pain scale. Reports her back hurts when she walks. Uses heat at times but only helps short term. Please advise. Tameka Marin RN [facility]06-09-2025 NoteHNO ID: [id number] Author: JOY SUN PTA Service: ? Author Type: [employer] Umpire Type: Progress Notes Filed: 10/09/2024 13:37 Note Text: Episode Visit Count: 3 Therapist That Will Accept/Oversee The Plan Of Care: Marilee Merchant Start of Care Date: 09/28/24 Onset Date: 04/30/24 Plan of Care Certification Date: 09/28/24 Next Certification Due Date: 12/27/24 Patient Identified by Name and Date of : Yes REHABILITATION AND SPORTS THERAPY PHYSICAL THERAPY TREATMENT NOTE ASSESSMENT: Michael Meier tolerated the session with fatigue. She demonstrated difficulty with balance specially when attempting tandem stance and standing with eye closed. Patient also experiences difficulty with standing and laying supine due to back pain this session. The patient will continue to benefit from ongoing skilled physical therapy to progress toward set goals. PLAN FOR NEXT VISIT: continue to adress global strengthening and endurance as well as balance SUBJECTIVE: Patient states everything is just tired on me and she had no energy to do anything this morning Pain: Pain Pain Level: 8 Pain Location: Low Back/Lumbar Spine- Midline Description: Aching Frequency: Continuous Post Treatment Pain Post Treatment Pain Level: 5 Post Treatment Pain Location: Scapula - Left, Scapula - Right Post Treatment Pain Description: Aching OBJECTIVE MEASURES WITH LEVEL OF FUNCTION: TREATMENT: Therapeutic Exercise: 1: nustep seat 8 UE 8 lvl 2 6 minutes LIME KILN OPERATOR in constant attendence assessing current status reviewing HEP 2: seated shoulder flexion; abd 1# x10 ea L/R 3: seated row GTB 10 x 2 4: seated horizonal abd green T-band x5 (difficulty due to weakness) 5: *supine hip abd green T-band above knee x10 right/left/bilateral 6: bridges x10 7: sit to stands 5 x 2 Skilled Intervention: Patient was educated in proper exercise technique and purpose for exercises. Reviewed and educated patient on additions/changes for home exercise program as above (*). Skilled judgment was used in selection of appropriate interventions. Correct performance of therapeutic exercises was facilitated with verbal and visual cuing. Neuromuscular Re-Education: 1: NBOS x30 seconds , tandem stance 2 x 10 seconds, standing EC x30 seconds 2: standing on aeromat 2 x 30 seconds Skilled Intervention: Skilled judgment used to assess appropriate program for balance and coordination activity. Education in proprioceptive/kinesthetic awareness during standing. Ensured patient safety with use of gait belt Billing Therapeutic Exercise Treatment Minutes: 36 Neuromuscular Re-Education Treatment Minutes: 10 Skilled Treatment Time Minutes (timed and untimed codes): 46 Total Session Time (minutes): 46 Session Start Time : 1242 Session Stop Time : 1328 [facility] History of Present illness Narrative* Joy Sun LIME KILN OPERATOR - 10/09/2024 1:34 PM EDT Episode Visit Count: 3 Therapist That Will Accept/Oversee The Plan Of Care: Marilee Merchant Start of Care Date: 09/28/24 Onset Date: 04/30/24 Plan of Care Certification Date: 09/28/24 Next Certification Due Date: 12/27/24 Patient Identified by Name and Date of : Yes REHABILITATION AND SPORTS THERAPY PHYSICAL THERAPY TREATMENT NOTE ASSESSMENT: Michael Meier tolerated the session with fatigue. She demonstrated difficulty with balance specially when attempting tandem stance and standing with eye closed. Patient also experiences difficulty with standing and laying supine due to back pain this session. The patient will continue to benefit from ongoing skilled physical therapy to progress toward set goals. PLAN FOR NEXT VISIT: continue to adress global strengthening and endurance as well as balance SUBJECTIVE: Patient states everything is just tired on me and she had no energy to do anything this morning Pain: Pain Pain Level: 8 Pain Location: Low Back/Lumbar Spine- Midline Description: Aching Frequency: Continuous Post Treatment Pain Post Treatment Pain Level: 5 Post Treatment Pain Location: Scapula - Left, Scapula - Right Post Treatment Pain Description: Aching OBJECTIVE MEASURES WITH LEVEL OF FUNCTION: TREATMENT: Therapeutic Exercise: 1: nustep seat 8 UE 8 lvl 2 6 minutes LIME KILN OPERATOR in constant attendence assessing current status reviewingHEP 2: seated shoulder flexion; abd 1# x10 ea L/R 3: seated row GTB 10 x 2 4: seated horizonal abd green T-band x5 (difficulty due to weakness) 5: *supine hip abd green T-band above knee x10 right/left/bilateral 6: bridges x10 7: sit to stands 5 x 2 Skilled Intervention: Patient was educated in proper exercise technique and purpose for exercises. Reviewed and educated patient on additions/changes for home exercise program as above (*). Skilled judgment was used in selection of appropriate interventions. Correct performance of therapeutic exercises was facilitated with verbal and visual cuing. Neuromuscular Re-Education: 1: NBOS x30 seconds , tandem stance 2 x 10 seconds, standing EC x30 seconds 2: standing on aeromat 2 x 30 seconds Skilled Intervention: Skilled judgment used to assess appropriate program for balance and coordination activity. Education in proprioceptive/kinesthetic awareness during standing. Ensured patient safety with use of gait belt Billing Therapeutic Exercise Treatment Minutes: 36 Neuromuscular Re-Education Treatment Minutes: 10 Skilled Treatment Time Minutes (timed and untimed codes): 46 Total Session Time (minutes): 46 Session Start Time : 1242 Session Stop Time : 1328 Joy Sun PTA [facility] NoteHNO ID: [id number] Author: PJ BLESDOE PT Service: ? Author Type: Physical Therapist Type: Progress Notes Filed: 10/02/2024 15:43 Note Text: Episode Visit Count: 2 Therapist That Will Accept/Oversee The Plan Of Care: Marilee Merchant Start of Care Date: 09/28/24 Onset Date: 04/30/24 Plan of Care Certification Date: 09/28/24 Next Certification Due Date: 12/27/24 Patient Identified by Name and Date of : Yes REHABILITATION AND SPORTS THERAPY PHYSICAL THERAPY TREATMENT NOTE ASSESSMENT: Michael Meier tolerated the session with shortness of breath, decreased endurance, fatigue, and expected muscle soreness. She demonstrated difficulty with weakness and decrease mobility. The patient will continue to benefit from ongoing skilled physical therapy to progress toward set goals. PLAN FOR NEXT VISIT: SUBJECTIVE: pt states that she is having stability issues and is not strong enough to lift her rollator out of the car so she walked with her straight cane. pt states her r leg is fatigued and l leg she doesnt feel much. Pain: Pain Pain Level: (none reported) OBJECTIVE MEASURES WITH LEVEL OF FUNCTION: Sit to stand to sit with cues for increase safety and proper mechanics Ambulate with st cane with increase instability and frequen minor lob with need for assist in correction to prevent falling Ambulate with rollator with sba x 1 to cga x 1 with no lob TREATMENT: Sagittal Plane Frontal Plane Transverse Plane X = neutral X = neutral X = neutral R = staggered right W = wide base E = external rotation L = staggered left N = narrow base I = internal rotation 1st letter = sagittal, 2nd letter = frontal, 3rd letter = transverse Examples: XXX = neutral, neutral, neutral RXE = right staggered, neutral width, toes out Therapeutic Exercise: 6: nu step level 2 seat 8 ue 10 x 3 min toe out [address] 3 min toe in x 9 min total for inc flexibility and mobility and strength ankle foot knee hip core t spine scapula shoulder and c spine pace as mi ave 50 spm with cues for technique 7: amb 100 ft level with gca x [address] cane and cues for proper mechanics 8: sit to stand to sit with cues for proper safety mechanics and technique x 5 x 2 sets 9: standing at rollator b ue enterprise services manager slight march in place r to l to r x 5 then b heel raises x 5 x 3 sets 10: standing wt shifts b ue enterprise services manager at rollator wt shift r l lat ant post and rot r l x 5 x 2 sets ea 11: sitting alt r l judah flex ext x 10 sitting alt r l abd add r l judah x 10 ea 12: sitting rot r l ir er r ho then l judah x 10 ea 13: sitting b ue symm flex ext x 10 ea sitting b ue symm abd add x 10 ea 14: sit to stand to sit x 4 with cuers and instruction and assist as needed 15: amb 100 ft out to car with sba x 1 with rollator transfer to sitting in her car with sba x 1 no lob Skilled Intervention: Patient was educated in proper exercise technique and purpose for exercises. Skilled judgment was used in selection of appropriate interventions. Correct performance of therapeutic exercises was facilitated with verbal, visual, and tactile cuing. Billing Therapeutic Exercise Treatment Minutes: 40 Skilled Treatment Time Minutes (timed and untimed codes): 42 Total Session Time (minutes): 45 Session Start Time : 1445 Session Stop Time : 1530 Pj Bledsoe [facility]06-02-2025 History of Present illness Narrative* Pj Bledsoe, PT - 10/02/2024 3:40 PM EDT Episode Visit Count: 2 Therapist That Will Accept/Oversee The Plan Of Care: Marilee Merchant Start of Care Date: 09/28/24 Onset Date: 04/30/24 Plan of Care Certification Date: 09/28/24 Next Certification Due Date: 12/27/24 Patient Identified by Name and Date of : Yes REHABILITATION AND SPORTS THERAPY PHYSICAL THERAPY TREATMENT NOTE ASSESSMENT: Michael Meier tolerated the session with shortness of breath, decreased endurance, fatigue, and expected muscle soreness. She demonstrated difficulty with weakness and decrease mobility. The patient will continue to benefit from ongoing skilled physical therapy to progress toward set goals. PLAN FOR NEXT VISIT: SUBJECTIVE: pt states that she is having stability issues and is not strong enough to lift her rollator out of the car so she walked with her straight cane. pt states her r leg is fatigued and l leg she doesnt feel much. Pain: Pain Pain Level: (none reported) OBJECTIVE MEASURES WITH LEVEL OF FUNCTION: Sit to stand to sit with cues for increase safety and proper mechanics Ambulate with st cane with increase instability and frequen minor lob with need for assist in correction to prevent falling Ambulate with rollator with sba x 1 to cga x 1 with no lob TREATMENT: Sagittal Plane Frontal Plane Transverse Plane X = neutral X = neutral X = neutral R = staggered right W = wide base E = external rotation L = staggered left N = narrow base I = internal rotation 1st letter = sagittal, 2nd letter = frontal, 3rd letter = transverse Examples: XXX = neutral, neutral, neutral RXE = right staggered, neutral width, toes out Therapeutic Exercise: 6: nu step level 2 seat 8 ue 10 x 3 min toe out [address] 3 min toe in x 9 min total for inc flexibility and mobility and strength ankle foot knee hip core t spine scapula shoulder and c spine pace as mi ave 50 spm with cues for technique 7: amb 100 ft level with gca x [address] cane and cues for proper mechanics 8: sit to stand to sit with cues for proper safety mechanics and technique x 5 x 2 sets 9: standing at rollator b ue enterprise services manager slight march in place r to l to r x 5 then b heel raises x 5 x 3 sets 10: standing wt shifts b ue enterprise services manager at rollator wt shift r l lat ant post and rot r l x 5 x 2 sets ea 11: sitting alt r l judah flex ext x 10 sitting alt r l abd add r l judah x 10 ea 12: sitting rot r l ir er r ho then l judah x 10 ea 13: sitting b ue symm flex ext x 10 ea sitting b ue symm abd add x 10 ea 14: sit to stand to sit x 4 with cuers and instruction and assist as needed 15: amb 100 ft out to car with sba x 1 with rollator transfer to sitting in her car with sba x 1 nolob Skilled Intervention: Patient was educated in proper exercise technique and purpose for exercises. Skilled judgment was used in selection of appropriate interventions. Correct performance of therapeutic exercises was facilitated with verbal, visual, and tactile cuing. Billing Therapeutic Exercise Treatment Minutes: 40 Skilled Treatment Time Minutes (timed and untimed codes): 42 Total Session Time (minutes): 45 Session Start Time : 1445 Session Stop Time : 1530 Pj Bledsoe PT [facility]05-29-[facility] Telephone encounter Note * Telephone Encounter - Marisol Cano LPN - 09/28/2024 4:00 PM EDT Spoke with Kell gave information provided. She voices understanding. She will have pt call in for her appointment she does not know pts schedule. [facility]05-29-[facility] Miscellaneous Notes* Telephone Encounter - Marisol Cano LPN - 09/28/2024 4:00 PM EDT Spoke with Kell gave information provided. She voices understanding. She will have pt call in for her appointment she does not know pts schedule. * Telephone Encounter - Key Portillo APRN.CNP - 09/28/2024 3:01 PM EDT Pt needs appointment to assess this. This was not mentioned in recent office visit 1 month ago. Thank you, Key Portillo APRN.HATCHERY MAN * Telephone Encounter - Nadine Colon LPN - 09/28/2024 1:42 PM EDT Kell from [facility] calling to report patient tremor is worse past few weeks. She can hardly hold a cup of coffee. Patient said the Lorazepam is not helping at all. Palliative Care had her taking Prednisone 50 mg daily for 5 days and she is back on her 10 mg daily dose now, was given that due to her Pulmonary Hypertension, her breathing is doing much better now. Patient had thought the shaky issues was her blood sugar but her fasting sugars have been in low 100's. Aware PCP is out of the office. Please advise documented in [facility] encounterMi[facility]05-29-[facility]25 NoteHNO ID: [id number] Author: SARAH MERCHANT, FRANTZ Service: ? Author Type: Physical Therapist Type: Progress Notes Filed: 09/28/2024 15:46 Note Text: Episode Visit Count: 1 Therapist That Will Accept/Oversee The Plan Of Care: Marilee Merchant Start of Care Date: 09/28/24 Onset Date: 04/30/24 Plan of Care Certification Date: 09/28/24 Next Certification Due Date: 12/27/24 Patient Identified by Name and Date of : Yes REHABILITATION AND SPORTS THERAPY PHYSICAL THERAPY EVALUATION PLAN OF CARE: Assessment: Michael Meier presents with chief complaint of general weakness and difficulty walking that interferes with walking, walking in the community, physical activities, recreational activities, carrying, heavy exertion, standing . The patient presents with impairments in ADL's, balance, gait, independence in exercise, overall function, strength, and symptom management. PROMIS? (Patient-Reported Outcomes Measurement Information System) scores were reviewed and identified as a rehabilitation concern. Prognosis for therapy is Fair due to: advanced age, chronic nature of impairments, limited tolerance to activity, clinical presentation, poor past response to therapy intervention, limited support system . She is referred to PT by orthopedic group whom she's seen for her hips - she went to get hips checked by ortho d/t hip pain AND weakness and they referred her to PT. Pt says hip Xrays looked good, US showed injury/tearing of L glut muscle (surgery not advised). The patient will benefit from skilled therapy services to meet the goals established for this plan of care as noted below. Goals for Episode of Care: established 09/28/24 Patient reported outcome of physical function will increase T-score by a minimum 5 points. [place] in home exercise program. Patient will demonstrate increase in abdominal, LE AND UE strength to 4+/5 during manual muscle testing in order to improve function for basic self-care tasks, home management tasks, and prior functional tasks. Patient will improve 5 time sit to stand to demonstrate improvement in functional lower extremity strength. Improve postural awareness. Patient will increase balance to Fair+/Normal with static/dynamic standing balance and allow patient to demonstrate appropriate balance strategies to reduce risk for falls. Patient will report no falls. Patient will demonstrate independent and proper use of assisstive device to allow for improved walking quality and safety therefore reducing the risk of falls. Patient Goals: strengthen my legs, get around better Time Frame for Goals and Treatment : 12/27/24 Planned Interventions, Frequency, and Duration: Current Frequency: 1x/week (pt wants to do PT 1x/wk, plans to do senior exercise class 2x/wk) Duration: 12 weeks Total Number of Visits Planned: 12 Planned Treatment Interventions: Therapeutic exercise (81475), Neuromuscular re-education (95160), Therapeutic activities (61903), Self-senior care management (60566), Gait Training (20619), Patient/Family/Caregiver Education, General Conditioning PLAN FOR NEXT VISIT: address core, LE AND UE strength. improve endurance AND balance Patient demonstrates good understanding of plan of care and treatment. The above goals and plan of care were discussed and agreed upon by patient/family. SUBJECTIVE: pt reports LE weakness AND fatigue and difficulty walking. denies pain currently but c/o intermittent LBP and difficulty standing for very long d/t LBP. she also reports UE weakness. she's currently getting HH Nsg s/p hospitalization in April for CHF. also had hospitalization last year for pneumonia. Patient Goals: strengthen my legs, get around better Functional Limitations: walking, walking in the community, physical activities, recreational activities, carrying, heavy exertion, standing Prior Level of Function: Independent with restrictions Independent with the following restrictions: has used a WW/rollator for at least 1 yr Relevant History Past Relevant Medical Conditions: Arthritis, Cardiac, Hypertension, Atrial Fibrillation, Falls, GERD, Pacemaker Past Relevant Surgical Conditions: Total Hip Replacement-Right, Total Hip Replacement-Left, Total Knee Replacement-Right, Total Knee Replacement-Left Right or Left Handed: Right Employment: Retired Home Environment Patient Lives With: Self/Alone Assistance Available: [employer] [employer] (currently getting HH Nsg, has friends that help prn) Home Type: Mobile Home Entry To Home: Ramp Intake Information: Prescription present Previous Treatment: Physical Therapy Falls Interview: Two or more falls in the last year, Uses an assistive device Pain: Pain Pain Location: Neck, Back Frequency: Intermittent PROMIS Scales 09/28/2024 04/20/2024 03/16/2024 Higher is Better Phys Func - T Score 24 (severe dysfunction) 53 (within normal limits) 32 (more content not included)...[facility]05-29-2025 History of Present illness Narrative* Sarah Merchant, PT - 09/28/2024 3:35 PM EDT Images from the original note were not included. Episode Visit Count: 1 Therapist That Will Accept/Oversee The Plan Of Care: Marilee Merchant Start of Care Date: 09/28/24 Onset Date: 04/30/24 Plan of Care Certification Date: 09/28/24 Next Certification Due Date: 12/27/24 Patient Identified by Name and Date of : Yes REHABILITATION AND SPORTS THERAPY PHYSICAL THERAPY EVALUATION PLAN OF CARE: Assessment: Michael Meier presents with chief complaint of general weakness and difficulty walking that interferes with walking, walking in the community, physical activities, recreational activities, carrying, heavy exertion, standing . The patient presents with impairments in ADL's, balance, gait, independence in exercise, overall function, strength, and symptom management. PROMIS (Patient-R eported Outcomes Measurement Information System) scores were reviewed and identified as a rehabilitation concern. Prognosis for therapy is Fair due to: advanced age, chronic nature of impairments, limited tolerance to activity, clinical presentation, poor past response to therapy intervention, limited support system . She is referred to PT by orthopedic group whom she's seen for her hips - she went to get hips checked by ortho d/t hip pain & weakness and they referred her to PT. Pt says hipXrays looked good, US showed injury/tearing of L glut muscle (surgery not advised). The patient will benefit from skilled therapy services to meet the goals established for this plan of care as noted below. Goals for Episode of Care: established 09/28/24 Patient reported outcome of physical function will increase T-score by a minimum 5 points. [place] in home exercise program. Patient will demonstrate increase in abdominal, LE & UE strength to 4+/5 during manual muscle testing in order to improve function for basic self-care tasks, home management tasks, and prior functional tasks. Patient will improve 5 time sit to stand to demonstrate improvement in functional lower extremity strength. Improve postural awareness. Patient will increase balance to Fair+/Normal with static/dynamic standing balance and allow patient to demonstrate appropriate balance strategies to reduce risk for falls. Patient will report no falls. Patient will demonstrate independent and proper use of assisstive device to allow for improved walking quality and safety therefore reducing the risk of falls. Patient Goals: strengthen my legs, get around better Time Frame for Goals and Treatment : 12/27/24 Planned Interventions, Frequency, and Duration: Current Frequency: 1x/week (pt wants to do PT 1x/wk, plans to do senior exercise class 2x/wk) Duration: 12 weeks Total Number of Visits Planned: 12 Planned Treatment Interventions: Therapeutic exercise (92076), Neuromuscular re- education (56158), Therapeutic activities (59758), Self-senior care management (74503), Gait Training (89112), Patient/Family/Caregiver Education, General Conditioning PLAN FOR NEXT VISIT: address core, LE & UE strength. improve endurance & balance Patient demonstrates good understanding of plan of care and treatment. The above goals and plan of care were discussed and agreed upon by patient/family. SUBJECTIVE: pt reports LE weakness & fatigue and difficulty walking. denies pain currently but c/o intermittent LBP and difficulty standing for very long d/t LBP. she also reports UE weakness. she's currently getting HH Nsg s/p hospitalization in April for CHF. also had hospitalization last year for pneumonia. Patient Goals: strengthen my legs, get around better Functional Limitations: walking, walking in the community, physical activities, recreational activities, carrying, heavy exertion, standing Prior Level of Function: Independent with restrictions Independent with the following restrictions: has used a WW/rollator for at least 1 yr Relevant History Past Relevant Medical Conditions: Arthritis, Cardiac, Hypertension, Atrial Fibrillation, Falls, GERD, Pacemaker Past Relevant Surgical Conditions: Total Hip Replacement-Right, Total Hip Replacement-Left, Total Knee Replacement-Right, Total Knee Replacement-Left Right or Left Handed: Right Employment: Retired Home Environment Patient Lives With: Self/Alone Assistance Available: [employer] (currently getting HH Nsg, has friends that help prn) Home Type: Mobile Home Entry To Home: Ramp Intake Information: Prescription present Previous Treatment: Physical Therapy Falls Interview: Two or more falls in the last year, Uses an assistive device Pain: Pain Pain Location: Neck, Back Frequency: Intermittent PROMIS Scales 09/28/2024 04/20/2024 03/16/2024 Higher is Better Phys Func - T Score 24 (severe dysfunction) 53 (within normal limits) 32 (moderate dysfunction) Phys Func - Percentile 0 62 4 Self-Eff Symptom - T Score 42 (Average) 43 (Average) 39 (Low) Self-Eff Symptom - Percentile 21 24 14 T-scores: mean of general population = 50. 5 points is clinically meaningfully difference Percentiles provide an indication of how the patient's score ranks in relation to the general population. Higher percentile rankings indicate better function/quality of life. 50th percentile is the average of the general population and indicates half of respondents had a worse score. OBJECTIVE MEASURES WITH LEVEL OF FUNCTION: Posture / Alignment Posture: Forward head, Rounded shoulders, Slump Sensation - Lower Extremity LE Light Touch Sensation: Grossly Intact LE AROM R LE AROM: R hip wfl, R ankle DF limited by weakness/footdrop L LE AROM: L hip Abd limited by weakness otherwise wfl UE and Cervical Strength R UE Strength: R shoulder grossly 3/5 L UE Strength: L shoulder grossly 3 to 3+/5 R Shoulder Flexion: 3/5 R Shoulder Abduction (C5): 3/5 R Middle Trapezius: 3/5 L Shoulder Flexion: 3+/5 L Shoulder Abduction (C5): 3/5 L Middle Trapezius: 3/5 LE Strength Trunk Strength: abdominal weakness grossly 2+ to 3-5. ASLR 4 to 4+/5 R LE Strength: hip & ankle weakness as noted below L LE Strength: hip weakness as noted below R Hip Extension: 3/5 R Hip Flexion (L2): 4+/5 R Hip ABduction: 3-/5 (3- to 3/5) R Knee Extension (L3): 4+/5 R Knee Flexion: 5/5 R Ankle Dorsiflexion (L4): 3-/5 L Hip Extension: 3-/5 L Hip Flexion (L2): 4/5 L Hip ABduction: 2-/5 L Knee Extension (L3): 4+/5 L Knee Flexion: 5/5 L Ankle Dorsiflexion (L4): 5/5 Gait Gait: Modified Independent Gait Device: Rollator Gait Deviations: General Deviations, Right Lower Extremity, Left Lower Extremity Gait Deviations Right Lower Extremity: Trendelenburg Gait Deviations Left Lower Extremity: Trendelenburg General Deviations/Observations: Antalgic gait, Jennifer decreased, Difficulty changing direction/turning, Flexed trunk posture, Step length decreased, Wide base of support, UE weight bearing on assistive device excessive Gait Observation: needs WW/rollator d/t strength & balance deficits Balance Static Standing Balance: Narrow Base of Support, Tandem Stance, Single Leg Stance Narrow Base of Support: unable Tandem Stance: unable Single Leg Stance: unable Functional Performance Test Results 5 Times Sit to Stand Test : 19.89 sec (from 17 chair without UE assist. 16.36 seconds from 20 surface) Education: Education Barriers: Low activity tolerance/endurance Learning/educational needs: Lifestyle changes, Safety, Home exercise program, Plan of Care, Gait Training, Posture, Body Mechanics Education Provided: Yes, see treatment interventions for education provided Education Provided To: Patient Education Mode/Type: Demonstration, Explanation/Discussion, Performance Response to Education/Teach Back: States/Identifies, Return Demonstration, Requires Review/Additional Education TREATMENT: PT Treatment Interventions: Therapeutic Exercise, Therapeutic Activity, Gait Training Evaluation Therapeutic Exercise: 1: *seated shoulder FE & ABD 1#R/L 5-10x 2: *seated neck retraction & extension 3: *seated scap sets 4: *seated UT stretch R/L 5: prone UE horiz ABd/scap retraction 10xR/L (also demonstrated standing) Skilled Intervention: Patient was educated in proper exercise technique and purpose for exercises. Reviewed and educated patient on additions/changes for home exercise program as above (*). Skilled judgment was used in selection of appropriate interventions. Correct performance of therapeutic exercises was facilitated with verbal and visual cuing. Educated patient on rationale for performing exercises in regards to including balance, increase ease of ADL, and ROM and function . Patient education as noted. Therapeutic Activity: 1: sit to stands (without UE assist) with emphasis on f/w wt-shift & preventing posterior LOB: 5x from 20 mat table, 5x from 17 chair Skilled Intervention: Educated on proper/safe technique for activities performed today. Activity progression based on professional judgment. Gait Trainin: gait with rollator, VCs for upright posture. advised continued use of WW/rollator for improved gait & safety Skilled Intervention: Patient was provided supervision during pre-gait/gait training to prevent falls and insure safety. Facilitated proper gait cycle with the use of verbal and visual cues for correction of gait deviations identified in the objective section above. Skilled judgment used to assess selection, proper sizing, and proper use of assistive device. Billing * Evaluation Moderate Complexity: 1 Unit Therapeutic Exercise Treatment Minutes: 25 Therapeutic Activity Treatment Minutes: 5 Gait Training Treatment Minutes: 3 Skilled Treatment Time Minutes (timed and untimed codes): 55 Total Session Time (minutes): 58 Session Start Time : 1401 Session Stop Time : 1459 Sarah Merchant, PT documented [facility] encounter[facility]05-29-[facility] Telephone encounter Note * Telephone Encounter - Key Portillo APRN.CNP - 09/28/2024 3:01 PM EDT Pt needs appointment to assess this. This was not mentioned in recent office visit 1 month ago. Thank you, Key Portillo APRN.CNP [facility]-29-[facility] Telephone encounter Note* Telephone Encounter - Nadine Colon LPN - 09/28/2024 1:42 PM EDT Kell from [facility] calling to report patient tremor is worse past few weeks. She can hardly hold a cup of coffee. Patient said the Lorazepam is not helping at all. Palliative Care had her taking Prednisone 50 mg daily for 5 days and she is back on her 10 mg daily dose now, was given that due to her Pulmonary Hypertension, her breathing is doing much better now. Patient had thought the shaky issues was her blood sugar but her fasting sugars have been in low 100's. Aware PCP is out of the office. Please advise [facility]05-12-[facility] Telephone encounter Note* Telephone Encounter - Delisa Townsend - 09/11/2024 9:21 AM EDT Prescription Refill Information The patient has been identified by name and date of : Yes Caregiver verified no other encounters exist for this prescription request: Yes Caregiver confirmed with patient/requestor that no other refills are due, in the near future, with this provider at this time: Yes The last office visit in the department: 08/30/2024 Does the patient have a future office visit with this provider/department: Yes Requested Prescriptions Pending Prescriptions Disp Refills meloxicam (MOBIC) 15 mg tablet 90 tablet 1 Sig: Take 1 tablet by mouth once daily. Take with food. Delisa Gomez September 11, 2024 9:22 AM [facility]05-12-2025 Miscellaneous Notes* Telephone Encounter - Delisa Townsend - 09/11/2024 9:21 AM EDT Prescription Refill Information The patient has been identified by name and date of : Yes Caregiver verified no other encounters exist for this prescription request: Yes Caregiver confirmed with patient/requestor that no other refills are due, in the near future, with this provider at this time: Yes The last office visit in the department: 08/30/2024 Does the patient have a future office visit with this provider/department: Yes Requested Prescriptions Pending Prescriptions Disp Refills meloxicam (MOBIC) 15 mg tablet 90 tablet 1 Sig: Take 1 tablet by mouth once daily. Take with food. Dleisa Gomez September 11, 2024 9:22 AM [facility] Telephone encounter Note * Telephone Encounter - Michael Puga DO - 09/08/2024 5:06 PM EDT Noted Michael Puga DO [facility]05-09-2025 Miscellaneous Notes* Telephone Encounter - Michael Puga DO - 09/08/2024 5:06 PM EDT Noted Michael Puga DO * Telephone Encounter - Amanda Pratt RN - 09/08/2024 1:47 PM EDT Patient calls back to let provider know that Palliative Care has just ordered prednisone 20 mg daily to help open her airways. Patient reports that when she checks her pulse ox it is always in the high 90's. She can only thinkof two times that it dropped to 87 and 89 upon waking in the morning. She took some deep breaths and it came back up. Patient reports she hasn't been using oxygen and wondering if she really needs it since she is starting the Prednisone and not using the oxygen. Amanda Pratt RN * Telephone Encounter - Loli Adamson RN - 09/08/2024 1:32 PM EDT Phoned pt and explained what [employer] reported needed to be done per Medicare guidelines for her to qualify for oxygen. Pt reports she was in [facility] about a yr ago with pneumonia, and she had to have a sleep study done with Dr. Alcala to qualify for oxygen. Reports she had an oxygen concentrator for 6 weeks at that time. Asking if those sleep results would work for this? Asking where she would have to go for a titration study with [facility]. Would like to know where [facility]. If she doesn't want to go to that place then she will go back to Dr. Alcala. Pt states she is willing to do whatever pcp thinks she should do. Please advise pt. * Telephone Encounter - Michael Puga DO - 09/08/2024 12:37 PM EDT Noted, is she willing to do this testing? Michael Puga DO * Telephone Encounter - Loli Adamson RN - 09/08/2024 10:41 AM EDT Davie Noguera- reports since pt has dx JOSE on CPAP, per medicare guidelines, pt would have to have sleep titration study to qualify for oxygen. States pt would not qualify for oxygen- with overnight pulse oximetry test per medicare guidelines. Please phone Jackelin with any questions: [phone] extension [phone] documented [facility] Telephone encounter Note * Telephone Encounter - Amanda Pratt RN - 09/08/2024 1:47 PM EDT Patient calls back to let provider know that Palliative Care has just ordered prednisone 20 mg daily to help open her airways. Patient reports that when she checks her pulse ox it is always in the high 90's. She can only thinkof two times that it dropped to 87 and 89 upon waking in the morning. She took some deep breaths and it came back up. Patient reports she hasn't been using oxygen and wondering if she really needs it since she is starting the Prednisone and not using the oxygen. Amanda Pratt RN [facility]05-09-2025 Telephone encounter Note* Telephone Encounter - Loli Adamson RN - 09/08/2024 1:32 PM EDT Phoned pt and explained what [employer] reported needed to be done per Medicare guidelines for her to qualify for oxygen. Pt reports she was in [facility] about a yr ago with pneumonia, and she had to have a sleep study done with Dr. Alcala to qualify for oxygen. Reports she had an oxygen concentrator for 6 weeks at that time. Asking if those sleep results would work for this? Asking where she would have to go for a titration study with [facility]. Would like to know [facility]. If she doesn't want to go to that place then she will go back to Dr. Alcala. Pt states she is willing to do whatever pcp thinks she should do. Please advise pt. [facility]05-09-2025 Telephone encounter Note* Telephone Encounter - Michael Puga DO - 09/08/2024 12:37 PM EDT Noted, is she willing to do this testing? Michael Puga DO [facility]05-09-2025 Telephone encounter Note* Telephone Encounter - Loli Adamson RN - 09/08/2024 10:41 AM EDT Jackelin- [employer]- reports since pt has dx JOSE on CPAP, per medicare guidelines, pt would have to have sleep titration study to qualify for oxygen. States pt would not qualify for oxygen- with overnight pulse oximetry test per medicare guidelines. Please phone Jackelin with any questions: [phone] extension [phone] [facility]05-09-2025 Telephone encounter Note* Telephone Encounter - Jacque Machuca MA - 09/08/2024 8:52 AM EDT Faxed Jacque Machuca MA [facility]05-09-2025 Miscellaneous Notes* Telephone Encounter - Jacque Machuca MA - 09/08/2024 8:52 AM EDT Faxed Jacque Machuca MA * Telephone Encounter - Asia Rosales APRN.CNP - 09/08/2024 8:22 AM EDT It's in the outbox in my office. Asia Rosales APRN.CNP * Telephone Encounter - Jacque Machuca MA - 09/08/2024 8:15 AM EDT Please print script Jacque Machuca MA * Telephone Encounter - Asia Rosales APRN.CNP - 09/07/2024 1:32 PM EDT I placed the order best I know how to. Please fax per below request. Asia Rosales APRN.CNP * Telephone Encounter - Bhavna Arauz RN - 09/07/2024 11:16 AM EDT Petra NOLASCO from [facility] calls and is asking status of request. When order is placed, please fax orderto [employer]. Please place order for nighttime pulsometry test and fax to [employer]. Please review and advise, Bhavna Arauz RN * Telephone Encounter - Julianna Cano LPN - 09/06/2024 1:12 PM EDT Pt. informed and would like to get the nighttime Oximetry. * Telephone Encounter - Michael Puga DO - 09/05/2024 5:35 PM EDT Please clarify with more information What recommendation? Would need to have nighttime oximetry testing for me to order oxygen by insurance Michael Puga DO * Telephone Encounter - Bhavna Arauz RN - 09/05/2024 11:46 AM EDT Patient calls and states that palliative care nurse had just visited patient. Palliative nurse had told patient that patient would benefit to have oxygen at night. Patient state that nurse had told patient to call office about this. Please review and advise, Bhavna Arauz RN documented in [facility] encounter[facility]05-[facility] Telephone encounter Note * Telephone Encounter - Asia Rosales APRN.CNP - 09/08/2024 8:22 AM EDT It's in the outbox in my office. Asia Rosales APRN.CNP [facility]05-09-2025 Telephone encounter Note* Telephone Encounter - Jacque Machuca MA - 09/08/2024 8:15 AM EDT Please print script Jacque Machuca MA [facility]05-08-2025 Telephone encounter Note* Telephone Encounter - Asia Rosales APRN.CNP - 09/07/2024 1:32 PM EDT I placed the order best I know how to. Please fax per below request. Asia Rosales APRN.CARMELINA [facility]05-08-2025 Telephone encounter Note* Telephone Encounter - Bhavna Aaruz RN - 09/07/2024 11:16 AM EDT Petra NOLASCO from [facility] calls and is asking status of request. When order is placed, please fax orderto [employer]. Please place order for nighttime pulsometry test and fax to [employer]. Please review and advise, Bhavna Arauz RN [facility]05-07-2025 Telephone encounter Note* Telephone Encounter - Julianna Cano LPN - 09/06/2024 1:12 PM EDT Pt. informed and would like to get the nighttime Oximetry. [facility]05-06-2025 Telephone encounter Note* Telephone Encounter - Michael Puga DO - 09/05/2024 5:35 PM EDT Please clarify with more information What recommendation? Would need to have nighttime oximetry testing for me to order oxygen by insurance Michael Puga DO [facility]05-06-2025 Telephone encounter Note* Telephone Encounter - Bhavna Arauz RN - 09/05/2024 11:46 AM EDT Patient calls and states that palliative care nurse had just visited patient. Palliative nurse had told patient that patient would benefit to have oxygen at night. Patient state that nurse had told patient to call office about this. Please review and advise, Bhavna Arauz RN [facility]04-30-2025 Instructions* Patient Instructions* Michael Puga DO - 08/30/2024 3:57 PM EDT In the AM, your blood glucose should be 100 or more. If <90s then this is causing the symptoms you are having When you eat, afterwards, your blood sugar should be >140s (within 2 hours) You have to have a protein snack every bedtime- apples/peanut butter, protein drink, cheese alive, yogurt, cottage cheese Relion meter at [facility] if insurance doesn't want to cover rx. [facility] Address: [address] [place] [address] documented in this encounterMi[facility]04-30-2025 NoteHNO ID: [id number] Author: MICHAEL PUGA DO Service: ? Author Type: Physician Type: Progress Notes Filed: 08/30/2024 22:10 Note Text: CC: Michael Mieer is a 84 year old female who presents to the office for follow up HPI: Seen in the office 1 week ago on 08/17/24 by Kami Rosales CNP as below Paxil 20mg- tolerating well. Feels very tired, sleepy, I don't care type feelings. States her medication does help with these symptoms but they have been slowly getting worse for a while now. Would like to increase her dose. Requesting palliative care consult secondary to her CHF, pulmonary HTN. Currently She is present with her friend Caryn in the office today She is using a rollator walker at home for balance and ambulation She has been recently seen by Orthopedics for left leg and hip concerns- diagnosed with significant muscle atrophy- specialist didn't feel she could much improve this with PHYSICAL THERAPY She is having some symptoms of feeling LH and off my normal as well as occasional blurring of vision in the morning on an intermittent basis when waking up and before she eats. No syncope, no chest pressure. Has chronic dyspnea due to her CHF history. Hasn't been on oxygen and not interested in being assessed for this at this time. PAST MEDICAL HISTORY Diagnosis Date A-fib (HCC) Allergic rhinitis, cause unspecified Arrhythmia Arthritis Greater trochanteric bursitis of left hip Melanoma of skin, site unspecified 2003 back Osteoarthritis of left hip Other and unspecified hyperlipidemia Pulmonary hypertension (HCC) Situational mixed anxiety and depressive disorder Sleep apnea Stroke (HCC) Unspecified essential hypertension Unspecified gastritis and gastroduodenitis PAST SURGICAL HISTORY Procedure Laterality Date ABDOMINAL SURGERY HX APPENDECTOMY HX ARTHRP ACETBLR/PROX FEM PROSTC AGRFT/ALGRFT 12/09/2003 right hip, redone, 07/2004 ARTHRP ACETBLR/PROX FEM PROSTC AGRFT/ALGRFT Left 07/2016 [facility] CONDYLEANDPLATU MEDIALANDLAT COMPARTMENTS 11/15/2009 Knee replacement, total [facility] ARTHRP E CONDYLEANDPLATU MEDIALANDLAT COMPARTMENTS 12/30/2009 Right knee replaced COLONOSCOPY FLX DX W/COLLJ SPEC WHEN PFRMD 06/29/2017 Colonoscopy EGD 10/17/2020 EGD W/O [facility] SPEC VARICIES INJ 01/08/2022 EGD W/O [facility] SPEC VARICIES INJ 03/31/2024 [facility] ESOPHAGOGASTRODUODENOSCOPY TRANSORAL DIAGNOSTIC 11/29/2000 EGD ESOPHAGOGASTRODUODENOSCOPY TRANSORAL DIAGNOSTIC 06/29/2017 EGD JOINT REPLACEMENT HX LAPS SURG CHOLECYSTECTOMY W/CHOLANGIOGRAPHY PACEMAKER IMPLANT 01/2011 SKIN BIOPSY HX TONSILLECTOMY HX TOTAL ABDOMINAL HYSTERECT W/WO RMVL TUBE OVARY Hysterectomy, GAL Current Outpatient Medications Medication Sig rOPINIRole (REQUIP) 1 mg tablet Take 1 tablet by mouth daily at bedtime. blood sugar diagnostic test strip Use with blood glucose test 2 times daily, Insulin Dep? No Lancets Use with blood glucose test 2 times daily. Insulin Dep? No alcohol swabs Use with blood glucose test 2 times daily. Insulin Dep? No PARoxetine (PAXIL) 40 mg tablet Take 1 tablet by mouth once daily. furosemide (LASIX) 20 mg tablet Take 1 tablet by mouth once daily. levothyroxine (SYNTHROID) 50 mcg tablet Take 1 tablet by mouth daily before breakfast. In the morning, Take on empty stomach at least 30 min before eating. For thyroid. fluticasone-salmeterol (ADVAIR DISKUS) 250-50 mcg/dose inhaler Inhale 1 Puff as instructed two times a day. RINSE AND GARGLE MOUTH WITH WATER AFTER EACH USE. Nebulizer Accessories kit 1 Kit as directed. LORazepam (ATIVAN) 0.5 mg Take 1 tablet by mouth two times a day as needed (anxiety attack). sucralfate (CARAFATE) 100 mg/mL suspension Take 10 mL by mouth four times daily. Omeprazole Magnesium (PRILOSEC OTC) 20 mg tablet Take 1 tablet by mouth once daily. cyanocobalamin (VITAMIN B-12) 1,000 mcg tab Take 1,000 mcg by mouth once daily. spironolactone (ALDACTONE) 25 mg tablet Take 25 mg by mouth once daily. hydrALAZINE (APRESOLINE) 25 mg tablet Take 50 mg by mouth two times a day at 6 am and 9 pm. albuterol HFA (PROVENTIL HFA, VENTOLIN HFA) 90 mcg/actuation inhaler Inhale 2 Puffs as instructed every 4 hours as needed. meloxicam (MOBIC) 15 mg tablet Take 1 tablet by mouth once daily. Take with food. rosuvastatin (CRESTOR) 10 mg tablet Take 1 tablet by mouth daily at bedtime. RESTASIS 0.05 % ophthalmic emulsion Azelastine HCl (OPTIVAR) 0.05 % ophthalmic solution aspirin, enteric coated (ASPIRIN, ENTERIC COATED) 81 mg EC tablet Take 81 mg by mouth once daily. PACERONE 200 mg tablet Take 200 mg by mouth once daily. ubidecarenone (COQ-10 ORAL) Take by mouth. diltiazem CD (CARDIZEM CD) 240 mg 24 hr capsule Take 1 capsule by mouth once daily. No current facility-administered medications for this visit. ALLERGIES Allergen Reactions Ciprofloxacin Rash Demerol [Meperidine* Vomiting (more content not included)...[facility]04-30-2025 History of Present illness Narrative* PugaMichael, - 08/30/2024 3:40 PM EDT CC: Michael Meier is a 84 year old female who presents to the office for follow up HPI: Seen in the office 1 week ago on 08/17/24 by Kami Rosales CNP as below Paxil 20mg- tolerating well. Feels very tired, sleepy, I don't care type feelings. States her medication does help with these symptoms but they have been slowly getting worse for a while now. Would like to increase her dose. Requesting palliative care consult secondary to her CHF, pulmonary HTN. Currently She is present with her friend Caryn in the office today She is using a rollator walker at home for balance and ambulation She has been recently seen by Orthopedics for left leg and hip concerns- diagnosed with significantmuscle atrophy- specialist didn't feel she could much improve this with PHYSICAL THERAPY She is having some symptoms of feeling LH and off my normal as well as occasional blurring of vision in the morning on an intermittent basis when waking up and before she eats. No syncope, no chestpressure. Has chronic dyspnea due to her CHF history. Hasn't been on oxygen and not interested in being assessed for this at this time. PAST MEDICAL HISTORY Diagnosis Date A-fib (HCC) Allergic rhinitis, cause unspecified Arrhythmia Arthritis Greater trochanteric bursitis of left hip Melanoma of skin, site unspecified 2003 back Osteoarthritis of left hip Other and unspecified hyperlipidemia Pulmonary hypertension (HCC) Situational mixed anxiety and depressive disorder Sleep apnea Stroke (HCC) Unspecified essential hypertension Unspecified gastritis and gastroduodenitis PAST SURGICAL HISTORY Procedure Laterality Date ABDOMINAL SURGERY HX APPENDECTOMY HX ARTHRP ACETBLR/PROX FEM PROSTC AGRFT/ALGRFT 12/09/2003 right hip, redone, 07/2004 ARTHRP ACETBLR/PROX FEM PROSTC AGRFT/ALGRFT Left 07/2016 ARTHRP KNE CONDYLE&PLATU MEDIAL&LAT COMPARTMENTS 11/15/2009 Knee replacement, total -Left - [facility] ARTHRP KNE CONDYLE&PLATU MEDIAL&LAT COMPARTMENTS 12/30/2009 Right knee replaced COLONOSCOPY FLX DX W/COLLJ SPEC WHEN PFRMD 06/29/2017 Colonoscopy EGD 10/17/2020 EGD W/O [facility] SPEC VARICIES INJ 01/08/2022 EGD W/O [facility] SPEC VARICIES INJ 03/31/2024 [facility] ESOPHAGOGASTRODUODENOSCOPY TRANSORAL DIAGNOSTIC 11/29/2000 EGD ESOPHAGOGASTRODUODENOSCOPY TRANSORAL DIAGNOSTIC 06/29/2017 EGD JOINT REPLACEMENT HX LAPS SURG CHOLECYSTECTOMY W/CHOLANGIOGRAPHY PACEMAKER IMPLANT 01/2011 SKIN BIOPSY HX TONSILLECTOMY HX TOTAL ABDOMINAL HYSTERECT W/WO RMVL TUBE OVARY Hysterectomy, GAL Current Outpatient Medications Medication Sig rOPINIRole (REQUIP) 1 mg tablet Take 1 tablet by mouth daily at bedtime. blood sugar diagnostic test strip Use with blood glucose test 2 times daily, Insulin Dep? No Lancets Use with blood glucose test 2 times daily. Insulin Dep? No alcohol swabs Use with blood glucose test 2 times daily. Insulin Dep? No PARoxetine (PAXIL) 40 mg tablet Take 1 tablet by mouth once daily. furosemide (LASIX) 20 mg tablet Take 1 tablet by mouth once daily. levothyroxine (SYNTHROID) 50 mcg tablet Take 1 tablet by mouth daily before breakfast. In the morning, Take on empty stomach at least 30 min before eating. For thyroid. fluticasone-salmeterol (ADVAIR DISKUS) 250-50 mcg/dose inhaler Inhale 1 Puff as instructed two times a day. RINSE AND GARGLE MOUTH WITH WATER AFTER EACH USE. Nebulizer Accessories kit 1 Kit as directed. LORazepam (ATIVAN) 0.5 mg Take 1 tablet by mouth two times a day as needed (anxiety attack). sucralfate (CARAFATE) 100 mg/mL suspension Take 10 mL by mouth four times daily. Omeprazole Magnesium (PRILOSEC OTC) 20 mg tablet Take 1 tablet by mouth once daily. cyanocobalamin (VITAMIN B-12) 1,000 mcg tab Take 1,000 mcg by mouth once daily. spironolactone (ALDACTONE) 25 mg tablet Take 25 mg by mouth once daily. hydrALAZINE (APRESOLINE) 25 mg tablet Take 50 mg by mouth two times a day at 6 am and 9 pm. albuterol HFA (PROVENTIL HFA, VENTOLIN HFA) 90 mcg/actuation inhaler Inhale 2 Puffs as instructed every 4 hours as needed. meloxicam (MOBIC) 15 mg tablet Take 1 tablet by mouth once daily. Take with food. rosuvastatin (CRESTOR) 10 mg tablet Take 1 tablet by mouth daily at bedtime. RESTASIS 0.05 % ophthalmic emulsion Azelastine HCl (OPTIVAR) 0.05 % ophthalmic solution aspirin, enteric coated (ASPIRIN, ENTERIC COATED) 81 mg EC tablet Take 81 mg by mouth once daily. PACERONE 200 mg tablet Take 200 mg by mouth once daily. ubidecarenone (COQ-10 ORAL) Take by mouth. diltiazem CD (CARDIZEM CD) 240 mg 24 hr capsule Take 1 capsule by mouth once daily. No current facility-administered medications for this visit. ALLERGIES Allergen Reactions Ciprofloxacin Rash Demerol [Meperidine* Vomiting Opioids - Morphine * Intolerance nausea, dizzy, sees things Opioids-Meperidine * nausea/vomiting Penicillin G hives Pravachol [Pravasta* Other: See Comments Leg cramps Sulfa (Sulfonamide * hives Vicodin [Hydrocodon* Intolerance dizzy,nausea,vomiting,headache Zithromax [Azithrom* Intolerance Social History Tobacco Use Smoking status: Never Smokeless tobacco: Never Vaping Use Vaping status: Never Used Substance Use Topics Alcohol use: Not Currently Comment: rarely Drug use: No ROS: See HPI PE: BP 148/64 Pulse 64 Temp (Src) 97 (Left Tympanic) Resp 20 Wt 230 lb (104.3kg) Gen: A&OX3, NAD, non-toxic appearing HEENT: PERRLA, EOMs intact b/l, nares without drainage, pharynx without erythema, exudate, lesions,or drainage. Uvula midline. Neck: No LAD, no thyromegaly, no meningismus. CV: RRR, no murmur Lungs: CTA b/l, no wheezing Skin: No rashes, lesions, or wounds on exposed skin. Poor balance, gait disorder Abd: soft, NT, ND, normal BS ASSESSMENT/PLAN: 1. Hypoglycemia - ICD9: 251.2, ICD10: E16.2 (primary diagnosis) Concerns for hypoglycemia symptoms Need for blood glucose monitoring when she has symptoms in the AM Recommend protein snack each evening before bed and better nutrition habits as d/w her today - HOME BLOOD GLUCOSE MONITOR - BLOOD SUGAR DIAGNOSTIC STRIPS - LANCETS - ALCOHOL SWABS - HEMOGLOBIN A1C (POC) 2. Restless leg - ICD9: 333.94, ICD10: G25.81 rx refilled - ROPINIROLE 1 MG TABLET 3. Dysthymia - ICD9: 300.4, ICD10: F34.1 Chronic, stable 4. 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 5. Obstructive lung disease (HCC) - ICD9: 496, ICD10: J44.9 Hx of COPD, no new changes in symptoms 6. Arthritis, multiple joint involvement - ICD9: 716.99, ICD10: M12.9 Chronic, need for balance and exercise to increase 7. Gait abnormality - ICD9: 781.2, ICD10: R26.9 Chronic, need for balance and exercise to increase 8. Chronic respiratory failure with hypoxia (HCC) - ICD9: 518.83, 799.02, ICD10: J96.11 Contributing to all her symptoms of fatigue and dyspnea Follow up with Palliative care and [employer] Creasing Machine Operator. Michael Puga DO Return if no improvement. Follow up with Michael Puga DO. To ER if develops chest pain, shortness of breath. Discussed risks, benefits, alternatives, and potential side effects of medications. Patient/Guardian expressed understanding and agreed with the plan. See patient instructions. Michael Puga DO [address] [place] [address] documented in [facility]Mi[facility]04-18-[facility]25 Telephone encounter Note * Telephone Encounter - Asia Rosales APRN.CNP - 08/18/2024 2:37 PM EDT I saw her in the office yesterday 08/17 and these concerns were addressed. Asia Rosales APRN.CNP [facility] Work Phone: [phone] Miscellaneous Notes* Telephone Encounter - Asia Rosales APRN.CNP - 08/18/2024 2:37 PM EDT I saw her in the office yesterday 08/17 and these concerns were addressed. Asia Rosales APRN.CNP * Telephone Encounter - Loli Adamson RN - 08/16/2024 1:28 PM EDT Petra- - [facility]- reports she is seeing patient and spoke with patient today. Patient reports to she is depressed and feels she needs increase in her paxil medication. SW reportspatient has lack of motivation, and is not motivated to do things she needs to do. Reports pt has CHF and will not do daily weights. Patient has COPD with SOB also. Reports patient does not have anxiety- pt is very calm. Pt has depression for a lot of reasons that include not able to get out and dothings she use to do due to SOB and CHF. Petra reports pt is not having thoughts of suicide. Petra talked with patient about palliative care, and patient stated she is open to trying palliative care. Petra asking if patient can come in to see provider to get increase on her paxil. Pt has appt with pcp on 08/30/24 and Petra asking pcp to discuss palliative care with pt at the appt. Dahiana plans to f/u with patient next week. This nurse phoned patient and scheduled appt with Soil Analyst for tomorrow to see if Soil Analyst can increase patient's paxil. documented in this encounterMiami [facility] Hospital04-17-2025 NoteHNO ID: [id number] Author: ASIA ROSALES APRN.CNP Service: ? Author Type: Nurse Practitioner Type: Progress Notes Filed: 08/18/2024 08:27 Note Text: Chief Complaint Patient presents with: Medication Follow-up: Increase paxil HPI Michael Meier is a 84 year old female who presents here today for Above Complaints.. Paxil 20mg- tolerating well. Feels very tired, sleepy, I don't care type feelings. States her medication does help with these symptoms but they have been slowly getting worse for a while now. Would like to increase her dose. Requesting palliative care consult secondary to her CHF, pulmonary HTN. Past medical history, appointments, medications, allergies reviewed. Previous Medical History PAST MEDICAL HISTORY Diagnosis Date A-fib (HCC) Allergic rhinitis, cause unspecified Arrhythmia Arthritis Greater trochanteric bursitis of left hip Melanoma of skin, site unspecified 2003 back Osteoarthritis of left hip Other and unspecified hyperlipidemia Pulmonary hypertension (HCC) Situational mixed anxiety and depressive disorder Sleep apnea Stroke (HCC) Unspecified essential hypertension Unspecified gastritis and gastroduodenitis Previous Surgical History PAST SURGICAL HISTORY Procedure Laterality Date ABDOMINAL SURGERY HX APPENDECTOMY HX ARTHRP ACETBLR/PROX FEM PROSTC AGRFT/ALGRFT 12/09/2003 right hip, redone, 07/2004 ARTHRP ACETBLR/PROX FEM PROSTC AGRFT/ALGRFT [facility] Knee replacement, total Left [facility] CON[facility]ANDLAT COMPARTMENTS 12/30/2009 Right knee replaced COLONOSCOPY FLX DX W/COLLJ SPEC WHEN PFRMD 06/29/2017 Colonoscopy EGD 10/17/2020 EGD W/O [facility] SPEC VARICIES INJ 01/08/2022 EGD W/O [facility] SPEC VARICIES INJ 03/31/2024 [facility] ESOPHAGOGASTRODUODENOSCOPY TRANSORAL DIAGNOSTIC 11/29/2000 EGD ESOPHAGOGASTRODUODENOSCOPY TRANSORAL DIAGNOSTIC 06/29/2017 EGD JOINT REPLACEMENT HX LAPS SURG CHOLECYSTECTOMY W/CHOLANGIOGRAPHY PACEMAKER IMPLANT 01/2011 SKIN BIOPSY HX TONSILLECTOMY HX TOTAL ABDOMINAL HYSTERECT W/WO RMVL TUBE OVARY Hysterectomy, GAL Family History FAMILY HISTORY Problem Relation Age of Onset Coronary Artery Disease Mother other (cardiac arrest) Mother Coronary Artery Disease Father Diabetes Father other (congestive heart failure) Father Patient Allergies ALLERGIES Allergen Reactions Ciprofloxacin Rash Demerol [Meperidine* Vomiting Opioids - Morphine * Intolerance nausea, dizzy, sees things Opioids-Meperidine * nausea/vomiting Penicillin G hives Pravachol [Pravasta* Other: See Comments Leg cramps Sulfa (Sulfonamide * hives Vicodin [Hydrocodon* Intolerance dizzy,nausea,vomiting,headache Zithromax [Azithrom* Intolerance Current Medications Current Outpatient Medications on File Prior to Visit Medication Sig levothyroxine (SYNTHROID) 50 mcg tablet Take 1 tablet by mouth daily before breakfast. In the morning, Take on empty stomach at least 30 min before eating. For thyroid. fluticasone-salmeterol (ADVAIR DISKUS) 250-50 mcg/dose inhaler Inhale 1 Puff as instructed two times a day. RINSE AND GARGLE MOUTH WITH WATER AFTER EACH USE. Nebulizer Accessories kit 1 Kit as directed. hydroCHLOROthiazide 12.5 mg capsule Take 1 capsule by mouth once daily. (Patient not taking: Reported on 08/17/2024) LORazepam (ATIVAN) 0.5 mg Take 1 tablet by mouth two times a day as needed (anxiety attack). rOPINIRole (REQUIP) 1 mg tablet Take 1 tablet by mouth daily at bedtime. PARoxetine (PAXIL) 20 mg tablet Take 1 tablet by mouth once daily. In the evening sucralfate (CARAFATE) 100 mg/mL suspension Take 10 mL by mouth four times daily. Omeprazole Magnesium (PRILOSEC OTC) 20 mg tablet Take 1 tablet by mouth once daily. cyanocobalamin (VITAMIN B-12) 1,000 mcg tab Take 1,000 mcg by mouth once daily. spironolactone (ALDACTONE) 25 mg tablet Take 25 mg by mouth once daily. hydrALAZINE (APRESOLINE) 25 mg tablet Take 50 mg by mouth two times a day at 6 am and 9 pm. albuterol HFA (PROVENTIL HFA, VENTOLIN HFA) 90 mcg/actuation inhaler Inhale 2 Puffs as instructed every 4 hours as needed. meloxicam (MOBIC) 15 mg tablet Take 1 tablet by mouth once daily. Take with food. rosuvastatin (CRESTOR) 10 mg tablet Take 1 tablet by mouth daily at bedtime. guaiFENesin (MUCINEX) 600 mg 12 hr tablet Take 1 tablet by mouth two times a day as needed for cold/allergy symptoms. (Patient not taking: Reported on 05/11/2024) RESTASIS 0.05 % ophthalmic emulsion Azelastine HCl (OPTIVAR) 0.05 % ophthalmic solution aspirin, enteric coated (ASPIRIN, ENTERIC COATED) 81 mg EC tablet Take 81 mg by mouth once daily. PACERONE 200 mg tablet Take 200 mg by mouth once daily. ubidecarenone (COQ-10 ORAL) Take by mouth. diltiazem CD (CARDIZEM CD) 240 mg 24 hr capsule Take 1 capsule by mouth once (more content not included)...[facility] [place]04-17-2025 History of Present illness Narrative* Asia Rosales, MANAGER UTILITY.HATCHERY MAN - 08/17/2024 3:22 PM EDT Chief Complaint Patient presents with: Medication Follow-up: Increase paxil HPI Michael Meier is a 84 year old female who presents here today for Above Complaints.. Paxil 20mg- tolerating well. Feels very tired, sleepy, I don't care type feelings. States her medication does help with these symptoms but they have been slowly getting worse for a while now. Would like to increase her dose. Requesting palliative care consult secondary to her CHF, pulmonary HTN. Past medical history, appointments, medications, allergies reviewed. Previous Medical History PAST MEDICAL HISTORY Diagnosis Date A-fib (HCC) Allergic rhinitis, cause unspecified Arrhythmia Arthritis Greater trochanteric bursitis of left hip Melanoma of skin, site unspecified 2003 back Osteoarthritis of left hip Other and unspecified hyperlipidemia Pulmonary hypertension (HCC) Situational mixed anxiety and depressive disorder Sleep apnea Stroke (HCC) Unspecified essential hypertension Unspecified gastritis and gastroduodenitis Previous Surgical History PAST SURGICAL HISTORY Procedure Laterality Date ABDOMINAL SURGERY HX APPENDECTOMY HX ARTHRP ACETBLR/PROX FEM PROSTC AGRFT/ALGRFT 12/09/2003 right hip, redone, 07/2004 ARTHRP ACETBLR/PROX FEM PROSTC AGRFT/ALGRFT Left 07/2016 ARTHRP KNE CONDYLE&PLATU MEDIAL&LAT COMPARTMENTS 11/15/2009 Knee replacement, total -Left - [facility] ARTHRP KNE CONDYLE&PLATU MEDIAL&LAT COMPARTMENTS 12/30/2009 Right knee replaced COLONOSCOPY FLX DX W/COLLJ SPEC WHEN PFRMD 06/29/2017 Colonoscopy EGD 10/17/2020 EGD W/O [facility] SPEC VARICIES INJ 01/08/2022 EGD W/O [facility] SPEC VARICIES INJ 03/31/2024 [facility] ESOPHAGOGASTRODUODENOSCOPY TRANSORAL DIAGNOSTIC 11/29/2000 EGD ESOPHAGOGASTRODUODENOSCOPY TRANSORAL DIAGNOSTIC 06/29/2017 EGD JOINT REPLACEMENT HX LAPS SURG CHOLECYSTECTOMY W/CHOLANGIOGRAPHY PACEMAKER IMPLANT 01/2011 SKIN BIOPSY HX TONSILLECTOMY HX TOTAL ABDOMINAL HYSTERECT W/WO RMVL TUBE OVARY Hysterectomy, GAL Family History FAMILY HISTORY Problem Relation Age of Onset Coronary Artery Disease Mother other (cardiac arrest) Mother Coronary Artery Disease Father Diabetes Father other (congestive heart failure) Father Patient Allergies ALLERGIES Allergen Reactions Ciprofloxacin Rash Demerol [Meperidine* Vomiting Opioids - Morphine * Intolerance nausea, dizzy, sees things Opioids-Meperidine * nausea/vomiting Penicillin G hives Pravachol [Pravasta* Other: See Comments Leg cramps Sulfa (Sulfonamide * hives Vicodin [Hydrocodon* Intolerance dizzy,nausea,vomiting,headache Zithromax [Azithrom* Intolerance Current Medications Current Outpatient Medications on File Prior to Visit Medication Sig levothyroxine (SYNTHROID) 50 mcg tablet Take 1 tablet by mouth daily before breakfast. In the morning, Take on empty stomach at least 30 min before eating. For thyroid. fluticasone-salmeterol (ADVAIR DISKUS) 250-50 mcg/dose inhaler Inhale 1 Puff as instructed two times a day. RINSE AND GARGLE MOUTH WITH WATER AFTER EACH USE. Nebulizer Accessories kit 1 Kit as directed. hydroCHLOROthiazide 12.5 mg capsule Take 1 capsule by mouth once daily. (Patient not taking: Reported on 08/17/2024) LORazepam (ATIVAN) 0.5 mg Take 1 tablet by mouth two times a day as needed (anxiety attack). rOPINIRole (REQUIP) 1 mg tablet Take 1 tablet by mouth daily at bedtime. PARoxetine (PAXIL) 20 mg tablet Take 1 tablet by mouth once daily. In the evening sucralfate (CARAFATE) 100 mg/mL suspension Take 10 mL by mouth four times daily. Omeprazole Magnesium (PRILOSEC OTC) 20 mg tablet Take 1 tablet by mouth once daily. cyanocobalamin (VITAMIN B-12) 1,000 mcg tab Take 1,000 mcg by mouth once daily. spironolactone (ALDACTONE) 25 mg tablet Take 25 mg by mouth once daily. hydrALAZINE (APRESOLINE) 25 mg tablet Take 50 mg by mouth two times a day at 6 am and 9 pm. albuterol HFA (PROVENTIL HFA, VENTOLIN HFA) 90 mcg/actuation inhaler Inhale 2 Puffs as instructed every 4 hours as needed. meloxicam (MOBIC) 15 mg tablet Take 1 tablet by mouth once daily. Take with food. rosuvastatin (CRESTOR) 10 mg tablet Take 1 tablet by mouth daily at bedtime. guaiFENesin (MUCINEX) 600 mg 12 hr tablet Take 1 tablet by mouth two times a day as needed for cold/allergy symptoms. (Patient not taking: Reported on 05/11/2024) RESTASIS 0.05 % ophthalmic emulsion Azelastine HCl (OPTIVAR) 0.05 % ophthalmic solution aspirin, enteric coated (ASPIRIN, ENTERIC COATED) 81 mg EC tablet Take 81 mg by mouth once daily. PACERONE 200 mg tablet Take 200 mg by mouth once daily. ubidecarenone (COQ-10 ORAL) Take by mouth. diltiazem CD (CARDIZEM CD) 240 mg 24 hr capsule Take 1 capsule by mouth once daily. losartan (COZAAR) 100 mg tablet Take 1 tablet by mouth once daily. No current facility-administered medications on file prior to visit. Social History Social History Tobacco Use Smoking status: Never Smokeless tobacco: Never Vaping Use Vaping status: Never Used Substance Use Topics Alcohol use: Not Currently Comment: rarely Drug use: No Review of Symptoms REVIEW OF SYSTEMS See HPI, otherwise negative EXAM: BP 136/68 (BP Site: Right Arm, BP Position: Sitting, BP Cuff Size: Large Adult) Pulse 61 SpO2 98% General Appearance: Well appearing, alert, in no acute distress, well-hydrated, well nourished.. Lungs: Lungs clear to auscultation. No wheezing, rhonchi, rales.. Heart: RRR without murmur, gallop, or rubs. No ectopy. Psychiatric: pleasant, cooperative, denies SI Health Maintenance List Covid-19 Vaccine() due on 01/02/2024 Advance Directive Discussion Never done RSV Vaccine(1 - 1-dose 75+ series) due on 10/13/2024 Diabetes Screening due on 05/11/2027 DTaP,Tdap,Td Vaccine(3 - Td or Tdap) due on 12/24/2028 Bone Density Screening Completed Influenza Vaccine Completed Shingrix Vaccine Completed Pneumococcal Vaccine: 50+ Completed Colorectal Cancer Screening Discontinued Data reviewed ASSESSMENT/PLAN: 1. Anxiety - ICD9: 300.00, ICD10: F41.9 (primary diagnosis) - Increase paxil from 20mg to 40mg once daily - PAROXETINE 40 MG TABLET 2. Dysthymia - ICD9: 300.4, ICD10: F34.1 - Increase paxil from 20mg to 40mg once daily - PAROXETINE 40 MG TABLET 3. Congestive heart failure, unspecified HF chronicity, unspecified heart failure type (HCC) - ICD9: 428.0, ICD10: I50.9 - CONSULT TO PALLIATIVE CARE 4. Function kidney decreased - ICD9: 593.9, ICD10: N28.9 - FUROSEMIDE 20 MG TABLET 5. Obstructive lung disease (HCC) - ICD9: 496, ICD10: J44.9 - CONSULT TO PALLIATIVE CARE 6. Pulmonary hypertension (HCC) - ICD9: 416.8, ICD10: I27.20 - CONSULT TO PALLIATIVE CARE Follow-up: appointment on 08/30/[address] Michael Puga that was previously scheduled Kristine Chavira Attending Note I have personally performed a face to face assessment of the patient and have reviewed the HARJIT noteand I agree. Other additions or changes: As edited Signature: Asia Rosales Date: 08/18/2024 Time: 8:26 AM [facility] Telephone encounter Note * Telephone Encounter - Loli Adamson RN - 08/16/2024 1:28 PM EDT Petra- - [facility]- reports she is seeing patient and spoke with patient today. Patient reports to she is depressed and feels she needs increase in her paxil medication. SW reportspatient has lack of motivation, and is not motivated to do things she needs to do. Reports pt has CHF and will not do daily weights. Patient has COPD with SOB also. Reports patient does not have anxiety- pt is very calm. Pt has depression for a lot of reasons that include not able to get out and dothings she use to do due to SOB and CHF. Petra reports pt is not having thoughts of suicide. Petra talked with patient about palliative care, and patient stated she is open to trying palliative care. Petra asking if patient can come in to see provider to get increase on her paxil. Pt has appt with pcp on 08/30/24 and Petra asking pcp to discuss palliative care with pt at the appt. Dahiana plans to f/u with patient next week. This nurse phoned patient and scheduled appt with Soil Analyst for tomorrow to see if Soil Analyst can increase patient's paxil. [facility]03-07-2025 Telephone encounter Note* Telephone Encounter - Amanda Pratt RN - 07/07/2024 9:23 AM EST Patient calls to request a new dose of Paxil. Nurse triage recommends see provider within 3 days. Patient agreeable to Wednesday appointment when she will be in town for another appt. Scheduled per patient preference. Care advice reviewed with verbalized understanding. Reason for Disposition Prescription request for new medicine (not a refill) Answer Assessment - Initial Assessment Questions 1. NAME of MEDICINE: Paxil 2. QUESTION: Patient is wanting to increase the dose as she has been on it for a while and doesn't feel it is helping with her sleep and situational depression. OV notes recommend follow up appt for concerns. 3. PRESCRIBER:Dr. Puga 4. SYMPTOMS: Generalized fatigue, insomnia, not wanting to do anything. Protocols used: Medication Question [id number] [facility]03-07-2025 Miscellaneous Notes* Telephone Encounter - Amanda Pratt RN - 07/07/2024 9:23 AM EST Patient calls to request a new dose of Paxil. Nurse triage recommends see provider within 3 days. Patient agreeable to Wednesday appointment when she will be in town for another appt. Scheduled per patient preference. Care advice reviewed with verbalized understanding. Reason for Disposition Prescription request for new medicine (not a refill) Answer Assessment - Initial Assessment Questions 1. NAME of MEDICINE: Paxil 2. QUESTION: Patient is wanting to increase the dose as she has been on it for a while and doesn't feel it is helping with her sleep and situational depression. OV notes recommend follow up appt for concerns. 3. PRESCRIBER:Dr. Puga 4. SYMPTOMS: Generalized fatigue, insomnia, not wanting to do anything. Protocols used: Medication Question [id number] documented in this encounterMi[facility]03-[facility]-2025 NoteHNO ID: [id number] Author: PJ BLEDSOE PT Service: ? Author Type: Physical Therapist Type: Progress Notes Filed: 07/03/2024 08:48 Note Text: 07/03/2024 [facility] PHYSICAL THERAPY DISCONTINUANCE OF CARE Plan of Care Period: Start of Care Date: 11/15/23 Last Visit Date: 04/20/2024 Therapy Program: Patient did not return for follow up care as planned. Please refer to last visit note for interventions provided for this episode of care. Assessment: Unable to formally assess goal achievement. Reason for Discontinuation of Care: Patient has not returned to therapy or scheduled additional follow-up appointments. Pt attended a long course of PT for eval plus 18 visits. Plan on this date was hold / dicontnue further PT due to lack of progress. Pt did not attend further PT. [facility], [facility]02-26-2025 Telephone encounter Note* Telephone Encounter - Renea Wallace MA - 06/28/2024 11:38 AM EST Printed telephone encounter with cover sheet & faxed to Dr. Hickey [phone]. Advised on cover sheet to respond with police booking officer's recommendations. Will wait for fax back. Renea Wallace MA [facility]02-26-2025 Miscellaneous Notes* Telephone Encounter - Renea Wallace MA - 06/28/2024 11:38 AM EST Printed telephone encounter with cover sheet & faxed to Dr. Hickey [phone]. Advised on cover sheet to respond with police booking officer's recommendations. Will wait for fax back. Renea Wallace MA * Telephone Encounter - Michael Puga DO - 06/28/2024 10:37 AM EST Please call her police booking officer office at [facility] and see if they are concerned with her shortness of breath and respirator symptoms potentially being secondary to SE from Amiodarone and if any options to change this anti arrhythmic on their end? Michael Puga DO * Telephone Encounter - Amanda Pratt RN - 06/26/2024 2:42 PM EST Patient calls to let provider know that she didn't start the Advair Diskus d/t side effects and thepulmonary testing didn't show asthma or COPD per patient. Patient also asking about amiodarone. Doesn't look like it is ordered by provider but patient reports provider was going to check with [facility] about taking it since it can cause SOB. Please review and advise, Amanda Pratt RN documented [facility] encounter[facility]02-26-2025 Telephone encounter Note * Telephone Encounter - Michael Puga DO - 06/28/2024 10:37 AM EST Please call her police booking officer office at [facility] and see if they are concerned with her shortness of breath and respirator symptoms potentially being secondary to SE from Amiodarone and if any options to change this anti arrhythmic on their end? Michael Puga DO [facility]02-25-2025 NoteHNO ID: [id number] Author: MICHAEL PUGA DO Service: ? Author Type: Physician Type: Progress Notes Filed: 06/27/2024 16:11 Note Text: CC: Michael Meier is a 84 year old female who presents to the office for follow up HPI: She was recently seen in the hospital end of Apr about 6-7 weeks ago for shortness of breath and cough. She was found to have concerns for some obstructive lung disease as well as CHF with hypoxia present and mild respiratory distress. Treated with IV antibiotics and steroids and oxygen and albuterol. She has been seen by [employer] as well as Dr. 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 She is taking diltiazem and losartan and hydralazine medication. Denies any CP or syncope. Is having a lot of fatigue and dyspnea symptoms. No new cough or fevers or chills. She has support from her friend that brought her to the office today She feels lack of motivation to exercise PAST MEDICAL HISTORY Diagnosis Date A-fib (HCC) Allergic rhinitis, cause unspecified Arrhythmia Arthritis Greater trochanteric bursitis of left hip Melanoma of skin, site unspecified 2003 back Osteoarthritis of left hip Other and unspecified hyperlipidemia Pulmonary hypertension (HCC) Situational mixed anxiety and depressive disorder Sleep apnea Stroke (HCC) Unspecified essential hypertension Unspecified gastritis and gastroduodenitis PAST SURGICAL HISTORY Procedure Laterality Date ABDOMINAL SURGERY HX APPENDECTOMY HX ARTHRP ACETBLR/PROX FEM PROSTC AGRFT/ALGRFT 12/09/2003 right hip, redone, 07/2004 ARTHRP ACETBLR/PROX FEM PROSTC AGRFT/ALGRFT Left 07/2016 ARTHRP KNE CONDYLEANDPLATU MEDIALANDLAT COMPARTMENTS 11/15/2009 Knee replacement, total -Left - [facility] ARTHRP KNE CONDYLEANDPLATU MEDIALANDLAT COMPARTMENTS 12/30/2009 Right knee replaced COLONOSCOPY FLX DX W/COLLJ SPEC WHEN PFRMD 06/29/2017 Colonoscopy EGD 10/17/2020 EGD W/O [facility] SPEC VARICIES INJ 01/08/2022 EGD W/O [facility] SPEC VARICIES INJ 03/31/2024 [facility] ESOPHAGOGASTRODUODENOSCOPY TRANSORAL DIAGNOSTIC 11/29/2000 EGD ESOPHAGOGASTRODUODENOSCOPY TRANSORAL DIAGNOSTIC 06/29/2017 EGD JOINT REPLACEMENT HX LAPS SURG CHOLECYSTECTOMY W/CHOLANGIOGRAPHY PACEMAKER IMPLANT 01/2011 SKIN BIOPSY HX TONSILLECTOMY HX TOTAL ABDOMINAL HYSTERECT W/WO RMVL TUBE OVARY Hysterectomy, GAL Current Outpatient Medications Medication Sig levothyroxine (SYNTHROID) 50 mcg tablet Take 1 tablet by mouth daily before breakfast. In the morning, Take on empty stomach at least 30 min before eating. For thyroid. fluticasone-salmeterol (ADVAIR DISKUS) 250-50 mcg/dose inhaler Inhale 1 Puff as instructed two times a day. RINSE AND GARGLE MOUTH WITH WATER AFTER EACH USE. Nebulizer Accessories kit 1 Kit as directed. hydroCHLOROthiazide 12.5 mg capsule Take 1 capsule by mouth once daily. LORazepam (ATIVAN) 0.5 mg Take 1 tablet by mouth two times a day as needed (anxiety attack). rOPINIRole (REQUIP) 1 mg tablet Take 1 tablet by mouth daily at bedtime. PARoxetine (PAXIL) 20 mg tablet Take 1 tablet by mouth once daily. In the evening sucralfate (CARAFATE) 100 mg/mL suspension Take 10 mL by mouth four times daily. Omeprazole Magnesium (PRILOSEC OTC) 20 mg tablet Take 1 tablet by mouth once daily. cyanocobalamin (VITAMIN B-12) 1,000 mcg tab Take 1,000 mcg by mouth once daily. spironolactone (ALDACTONE) 25 mg tablet Take 25 mg by mouth once daily. hydrALAZINE (APRESOLINE) 25 mg tablet Take 50 mg by mouth two times a day at 6 am and 9 pm. albuterol HFA (PROVENTIL HFA, VENTOLIN HFA) 90 mcg/actuation inhaler Inhale 2 Puffs as instructed every 4 hours as needed. meloxicam (MOBIC) 15 mg tablet Take 1 tablet by mouth once daily. Take with food. rosuvastatin (CRESTOR) 10 mg tablet Take 1 tablet by mouth daily at bedtime. guaiFENesin (MUCINEX) 600 mg 12 hr tablet Take 1 tablet by mouth two times a day as needed for cold/allergy symptoms. (Patient not taking: Reported on 05/11/2024) RESTASIS 0.05 % ophthalmic emulsion Azelastine HCl (OPTIVAR) 0.05 % ophthalmic solution aspirin, enteric coated (ASPIRIN, ENTERIC COATED) 81 mg EC tablet Take 81 mg by mouth once daily. PACERONE 200 mg tablet Take 200 mg by mouth once daily. ubidecarenone (COQ-10 ORAL) Take by mouth. diltiazem CD (CARDIZEM CD) 240 mg 24 hr capsule Take 1 capsule by mouth once daily. losartan (COZAAR) 100 mg tablet Take 1 tablet by mouth once daily. No current facility-administered medications for this visit. ALLERGIES Allergen Reactions Ciprofloxacin Rash Demerol [Meperidine* Vomiting Opioids - Morphine * Intolerance nausea, dizzy, sees things Opioids-Meperidine * nausea/vomiting Penicillin G hives Pravachol [Pravasta* Other: See Comments Leg cramps Sulfa (Sulfonamide * hives Vicodin [Hydrocodon* Intolerance dizzy,nausea,vomiting,headache Zithromax [Azithrom* Intolerance Social (more content not included)...[facility] [place]02-25-2025 History of Present illness Narrative* Michael Puga, - 06/27/2024 4:06 PM EST CC: Michael Meier is a 84 year old female who presents to the office for follow up HPI: She was recently seen in the hospital end of Apr about 6-7 weeks ago for shortness of breath and cough. She was found to have concerns for some obstructive lung disease as well as CHF with hypoxia present and mild respiratory distress. Treated with IV antibiotics and steroids and oxygen and albuterol. She has been seen by Home [employer] R[employer] as well as Dr. 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 She is taking diltiazem and losartan and hydralazine medication. Denies any CP or syncope. Is having a lot of fatigue and dyspnea symptoms. No new cough or fevers or chills. She has support from her friend that brought her to the office today She feels lack of motivation to exercise PAST MEDICAL HISTORY Diagnosis Date A-fib (HCC) Allergic rhinitis, cause unspecified Arrhythmia Arthritis Greater trochanteric bursitis of left hip Melanoma of skin, site unspecified 2003 back Osteoarthritis of left hip Other and unspecified hyperlipidemia Pulmonary hypertension (HCC) Situational mixed anxiety and depressive disorder Sleep apnea Stroke (HCC) Unspecified essential hypertension Unspecified gastritis and gastroduodenitis PAST SURGICAL HISTORY Procedure Laterality Date ABDOMINAL SURGERY HX APPENDECTOMY HX ARTHRP ACETBLR/PROX FEM PROSTC AGRFT/ALGRFT 12/09/2003 right hip, redone, 07/2004 ARTHRP ACETBLR/PROX FEM PROSTC AGRFT/ALGRFT Left 07/2016 ARTHRP KNE CONDYLE&PLATU MEDIAL&LAT COMPARTMENTS 11/15/2009 Knee replacement, total -Left - [facility] ARTHRP KNE CONDYLE&PLATU MEDIAL&LAT COMPARTMENTS 12/30/2009 Right knee replaced COLONOSCOPY FLX DX W/COLLJ SPEC WHEN PFRMD 06/29/2017 Colonoscopy EGD 10/17/2020 EGD W/O [facility] SPEC VARICIES INJ 01/08/2022 EGD [facility] [facility]POR[facility] SPEC VARICIES INJ 03/31/2024 [place] ESOPHAGOGASTRODUODENOSCOPY TRANSORAL DIAGNOSTIC 11/29/2000 EGD ESOPHAGOGASTRODUODENOSCOPY TRANSORAL DIAGNOSTIC 06/29/2017 EGD JOINT REPLACEMENT HX LAPS SURG CHOLECYSTECTOMY W/CHOLANGIOGRAPHY PACEMAKER IMPLANT 01/2011 SKIN BIOPSY HX TONSILLECTOMY HX TOTAL ABDOMINAL HYSTERECT W/WO RMVL TUBE OVARY Hysterectomy, GAL Current Outpatient Medications Medication Sig levothyroxine (SYNTHROID) 50 mcg tablet Take 1 tablet by mouth daily before breakfast. In the morning, Take on empty stomach at least 30 min before eating. For thyroid. fluticasone-salmeterol (ADVAIR DISKUS) 250-50 mcg/dose inhaler Inhale 1 Puff as instructed two times a day. RINSE AND GARGLE MOUTH WITH WATER AFTER EACH USE. Nebulizer Accessories kit 1 Kit as directed. hydroCHLOROthiazide 12.5 mg capsule Take 1 capsule by mouth once daily. LORazepam (ATIVAN) 0.5 mg Take 1 tablet by mouth two times a day as needed (anxiety attack). rOPINIRole (REQUIP) 1 mg tablet Take 1 tablet by mouth daily at bedtime. PARoxetine (PAXIL) 20 mg tablet Take 1 tablet by mouth once daily. In the evening sucralfate (CARAFATE) 100 mg/mL suspension Take 10 mL by mouth four times daily. Omeprazole Magnesium (PRILOSEC OTC) 20 mg tablet Take 1 tablet by mouth once daily. cyanocobalamin (VITAMIN B-12) 1,000 mcg tab Take 1,000 mcg by mouth once daily. spironolactone (ALDACTONE) 25 mg tablet Take 25 mg by mouth once daily. hydrALAZINE (APRESOLINE) 25 mg tablet Take 50 mg by mouth two times a day at 6 am and 9 pm. albuterol HFA (PROVENTIL HFA, VENTOLIN HFA) 90 mcg/actuation inhaler Inhale 2 Puffs as instructed every 4 hours as needed. meloxicam (MOBIC) 15 mg tablet Take 1 tablet by mouth once daily. Take with food. rosuvastatin (CRESTOR) 10 mg tablet Take 1 tablet by mouth daily at bedtime. guaiFENesin (MUCINEX) 600 mg 12 hr tablet Take 1 tablet by mouth two times a day as needed for cold/allergy symptoms. (Patient not taking: Reported on 05/11/2024) RESTASIS 0.05 % ophthalmic emulsion Azelastine HCl (OPTIVAR) 0.05 % ophthalmic solution aspirin, enteric coated (ASPIRIN, ENTERIC COATED) 81 mg EC tablet Take 81 mg by mouth once daily. PACERONE 200 mg tablet Take 200 mg by mouth once daily. ubidecarenone (COQ-10 ORAL) Take by mouth. diltiazem CD (CARDIZEM CD) 240 mg 24 hr capsule Take 1 capsule by mouth once daily. losartan (COZAAR) 100 mg tablet Take 1 tablet by mouth once daily. No current facility-administered medications for this visit. ALLERGIES Allergen Reactions Ciprofloxacin Rash Demerol [Meperidine* Vomiting Opioids - Morphine * Intolerance nausea, dizzy, sees things Opioids-Meperidine * nausea/vomiting Penicillin G hives Pravachol [Pravasta* Other: See Comments Leg cramps Sulfa (Sulfonamide * hives Vicodin [Hydrocodon* Intolerance dizzy,nausea,vomiting,headache Zithromax [Azithrom* Intolerance Social History Tobacco Use Smoking status: Never Smokeless tobacco: Never Vaping Use Vaping status: Never Used Substance Use Topics Alcohol use: Not Currently Comment: rarely Drug use: No ROS: See HPI PE: BP 160/70 Pulse 64 Temp (Src) 97.7 (Left Tympanic) Resp 20 Wt 221 lb (100.2kg) Gen: A&OX3, NAD, non-toxic appearing, appears fatigued HEENT: PERRLA, EOMs intact b/l, nares without drainage, pharynx without erythema, exudate, lesions,or drainage. Uvula midline. MMM Neck: No LAD, no thyromegaly, no meningismus. CV: RRR, 2/6 HSM RUSB murmur Lungs: CTA b/l, no wheezing although diminished in bases, no distress No edema, normal pulses Slowed gait Skin: No rashes, lesions, or wounds on exposed skin. ASSESSMENT/PLAN: 1. Obstructive lung disease (HCC) - ICD9: 496, ICD10: J44.9 (primary diagnosis) Trial of Prescription as below, albuterol/nebulizer to the pharmacy, f/u with Pulm - FLUTICASONE 250 MCG-SALMETEROL 50 MCG/DOSE BLISTR POWDR FOR INHALATION - NEBULIZER ACCESSORIES KIT - NEBULIZER 2. Thyroid disease - ICD9: 246.9, ICD10: E07.9 See above, start on medication as prescribed Recheck labs in 6-8 weeks. - LEVOTHYROXINE 50 MCG TABLET 3. Pulmonary hypertension (HCC) - ICD9: 416.8, ICD10: I27.20 See above F/u with Pulm and [employer] Operator Multifactorial, recently diagnosed - NEBULIZER ACCESSORIES KIT - NEBULIZER 4. WELCH (dyspnea on exertion) - ICD9: 786.09, ICD10: R06.09 See above F/u with Pulm and [employer] Operator Multifactorial, CHF and obstructive lung disease have been recently diagnosed - NEBULIZER ACCESSORIES KIT - NEBULIZER 5. Function kidney decreased - ICD9: 593.9, ICD10: N28.9 stable 6. 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 Arthritis, multiple joint involvement - ICD9: 716.99, ICD10: M12.9 Stable, no falls Michael Puga DO Return if no improvement. Follow up with Michael Puga DO. To ER if develops chest pain, shortness of breath. Discussed risks, benefits, alternatives, and potential side effects of medications. Patient/Guardian expressed understanding and agreed with the plan. See patient instructions. Michael Puga DO [address] [place] [address] [facility] Telephone encounter Note * Telephone Encounter - Amanda Pratt RN - 06/26/2024 2:42 PM EST Patient calls to let provider know that she didn't start the Advair Diskus d/t side effects and thepulmonary testing didn't show asthma or COPD per patient. Patient also asking about amiodarone. Doesn't look like it is ordered by provider but patient reports provider was going to check with [facility] about taking it since it can cause SOB. Please review and advise, Amanda Pratt RN [facility]02-04-20[facility] Telephone encounter Note* Telephone Encounter - Jacque Machuca MA - 06/06/2024 4:35 PM EST Pt informed, verbalized understanding Jacque Machuca MA [facility]02-04-2025 Miscellaneous Notes* Telephone Encounter - Jacque Machuca MA - 06/06/2024 4:35 PM EST Pt informed, verbalized understanding Jacque Machuca MA * Telephone Encounter - Michael Puga DO - 06/06/2024 4:28 PM EST Please inform patient that her BUN is slightly high, creatinine is normal. She needs to increase her fluid/water intake. Also her AST and ALT liver enzyme labs are slightly high- this CMP lab needs to be rechecked in 1 month Michael Puga DO * Telephone Encounter - Constance Ervin LPN - 06/06/2024 11:52 AM EST Pt calls for lab results done at [facility] on 06/02/24. Results are scanned in the lab chart.. Constance Ervin LPN documented [facility] Telephone encounter Note * Telephone Encounter - Michael Puga DO - 06/06/2024 4:28 PM EST Please inform patient that her BUN is slightly high, creatinine is normal. She needs to increase her fluid/water intake. Also her AST and ALT liver enzyme labs are slightly high- this CMP lab needs to be rechecked in 1 month Michael Puga DO [facility]02-04-[facility] Telephone encounter Note* Telephone Encounter - Constance Ervin LPN - 06/06/2024 11:52 AM EST Pt calls for lab results done at [facility] on 06/02/24. Results are scanned in the lab chart.. Constance Ervin LPN [facility]01-29-[facility] Telephone encounter Note* Telephone Encounter - Key Portillo APRN.CARMELINA - 05/31/2024 10:44 AM EST Noted. Thank you, Key Portillo APRN.HATCHERY MAN [facility]01-29-2025 Miscellaneous Notes* Telephone Encounter - Key Portillo APRN.HATCHERY MAN - 05/31/2024 10:44 AM EST Noted. Thank you, Key Portillo APRN.HATCHERY MAN * Telephone Encounter - Amanda Pratt RN - 05/31/2024 10:07 AM EST Qing with [facility] calls in regards to below. CMP was not completed. Re-faxed ordered to [facility] lab and Qing will add a nurse visit for this week to collect specimen as soon as possible. Amanda Pratt RN * Telephone Encounter - Key Portillo APRN.CARMELINA - 05/31/2024 7:36 AM EST I don't see CMP results either. Can we call [facility] and confirm this was drawn. If not, have her get itdone. Thank you, Key Portillo APRN.HATCHERY MAN * Telephone Encounter - Loli Adamson RN - 05/30/2024 8:26 AM EST Pt reports she had a CMP done at [facility] on 05/25/24 to check her kidneys and glucose. We received a BNP and CBC from [facility] under labs. Do not see a CMP. Patient asking Key to review and advise. documented in [facility]01-29-[facility]25 Telephone encounter Note * Telephone Encounter - Amanda Pratt RN - 05/31/2024 10:07 AM EST Qing with [facility] calls in regards to below. CMP was not completed. Re-faxed ordered to [facility] lab and Qing will add a nurse visit for this week to collect specimen as soon as possible. Amanda Pratt, RN [facility]01-29-2025 Telephone encounter Note* Telephone Encounter - Key Portillo APRN.CARMELINA - 05/31/2024 7:36 AM EST I don't see CMP results either. Can we call [facility] and confirm this was drawn. If not, have her get itdone. Thank you, Key Portillo APRN.HATCHERY MAN [facility]01-28-2025 Telephone encounter Note* Telephone Encounter - Loli Adamson RN - 05/30/2024 8:26 AM EST Pt reports she had a CMP done at [facility] on 05/25/24 to check her kidneys and glucose. We received a BNP and CBC from [facility] under labs. Do not see a CMP. Patient asking Key to review and advise. [facility]01-23-2025 Telephone encounter Note* Telephone Encounter - Marisol Cano LPN - 05/25/2024 10:15 AM EST Left detailed message on confidential voice mail. Also left out number for any questions. [facility]01-23-2025 Miscellaneous Notes* Telephone Encounter - Marisol Cano LPN - 05/25/2024 10:15 AM EST Left detailed message on confidential voice mail. Also left out number for any questions. * Telephone Encounter - Key Portillo APRN.CARMELINA - 05/25/2024 10:00 AM EST I would like patient to take medication and then recheck BP. BP was WNL at appointment on 05/11. I see from discharge instructions from [facility] that she was taking HCTZ at that time. I would recommend staying on HCTZ regimen at this. Rx sent to pharmacy. Does she still have cards appointment with Dr. Hickey on 06/01 -- if so, they can decide if they wantto keep her on this medication or not at that time. Thank you, Key Portillo APRN.CARMELINA The following approved medication requests have been transmitted electronically. Requested Prescriptions Signed Prescriptions Disp Refills hydroCHLOROthiazide 12.5 mg capsule 90 capsule 0 Sig: Take 1 capsule by mouth once daily. Authorizing Provider: KEY PORTILLO APRN.CNP * Telephone Encounter - Katia Marcano RN - 05/25/2024 9:25 AM EST Bhavna MAKI CM with [facility] called in and reports Pt had been taken off her Hydrochlorothiazide perCardiology for a while, but the last time she was in the hospital she was put back on 12.5 mg. She states the Pt is going to need a script called in if she is to be taking them to [facility].I told her I didn't see the HCTZ on her list at the moment, but I would send a message to the provider. She states Pt had been taken off the Lasix. She reports Pt has still been having fatigue. She reports her on and off dizziness and appetite have been getting better. She reports Pt has been drinking Ensure which has been helping. She took Pts BP today and it was 170/78, but Pt had held medications as she was drawing labs this morning. Please call and advise. documented in [facility]Mi[facility]01-23-2025 Telephone encounter Note * Telephone Encounter - Key Portillo APRN.CNP - 05/25/2024 10:00 AM EST I would like patient to take medication and then recheck BP. BP was WNL at appointment on 05/11. I see from discharge instructions from [facility] that she was taking HCTZ at that time. I would recommend staying on HCTZ regimen at this. Rx sent to pharmacy. Does she still have cards appointment with Dr. Hickey on 06/01 -- if so, they can decide if they wantto keep her on this medication or not at that time. Thank you, Key Portillo APRN.HATCHERY MAN The following approved medication requests have been transmitted electronically. Requested Prescriptions Signed Prescriptions Disp Refills hydroCHLOROthiazide 12.5 mg capsule 90 capsule 0 Sig: Take 1 capsule by mouth once daily. Authorizing Provider: KEY PORTILLO APRN.HATCHERY MAN [facility]01-[facility] Telephone encounter Note* Telephone Encounter - Katia Marcano RN - 05/25/2024 9:25 AM EST Bhavna MAKI CM with [facility] called in and reports Pt had been taken off her Hydrochlorothiazide perCardiology for a while, but the last time she was in the hospital she was put back on 12.5 mg. She states the Pt is going to need a script called in if she is to be taking them to [facility].I told her I didn't see the HCTZ on her list at the moment, but I would send a message to the provider. She states Pt had been taken off the Lasix. She reports Pt has still been having fatigue. She reports her on and off dizziness and appetite have been getting better. She reports Pt has been drinking Ensure which has been helping. She took Pts BP today and it was 170/78, but Pt had held medications as she was drawing labs this morning. Please call and advise. [facility]01-[facility] Telephone encounter Note* Telephone Encounter - Julianna Cano LPN - 05/19/2024 2:43 PM EST Pt. informed. [facility]01-17-20[facility] Miscellaneous Notes* Telephone Encounter - Julianna Moreno LPN - 05/19/2024 2:43 PM EST Pt. informed. * Telephone Encounter - Key Portillo APRN.HATCHERY MAN - 05/19/2024 2:39 PM EST Please let patient know that lab work results look much much better! Kidney function is improving drastically. I want her to continue to stay off of the lasix and repeat labs 1 more time in 1 week. Without the lasix her BNP remains stable which is also a good sign. Thank you, Key Portillo APRN.HATCHERY MAN * Telephone Encounter - Chloe Castro LPN - 05/19/2024 12:21 PM EST Pt calling for results of lab work she had done in her home yesterday, Results are I Epic. Please advise pt. Chloe Castro LPN documented in [facility]Mi[facility]01-17-2025 Telephone encounter Note * Telephone Encounter - Key Portillo APRN.CARMELINA - 05/19/2024 2:39 PM EST Please let patient know that lab work results look much much better! Kidney function is improving drastically. I want her to continue to stay off of the lasix and repeat labs 1 more time in 1 week. Without the lasix her BNP remains stable which is also a good sign. Thank you, Key Portillo APRN.HATCHERY MAN [facility]01-17-20[facility] Telephone encounter Note* Telephone Encounter - Chloe Castro LPN - 05/19/2024 12:21 PM EST Pt calling for results of lab work she had done in her home yesterday, Results are I Epic. Please advise pt. Chloe Castro LPN [facility]01-16-[facility] Telephone encounter Note* Telephone Encounter - Key Portillo APRN.HATCHERY MAN - 05/18/2024 10:50 AM EST Perfect! Thank you. Key Portillo APRN.HATCHERY MAN [facility]01-16-2025 Miscellaneous Notes* Telephone Encounter - Key Portillo APRN.HATCHERY MAN - 05/18/2024 10:50 AM EST Perfect! Thank you. Key Portillo APRN.HATCHERY MAN * Telephone Encounter - Tameka Marin RN - 05/18/2024 10:43 AM EST Bhavna with [facility] calling in and states she was able to draw all labs needed today. Tameka Marin, GLYNN * Telephone Encounter - Key Portillo APRN.HATCHERY MAN - 05/18/2024 10:42 AM EST Most important is CMP to have drawn if able. Agree with below. Pt needs to discontinue lasix all together. This was ordered by [facility] after recent admission for new onset CHF exacerbation. Initially ordered for 40 mg daily, I decreased to 20 mg daily after kidney function was so poor and told pt to repeat labs in 5 days with plan to discontinue all together if swelling and weight gain remained stable with decreased. Thank you, Key Portillo APRN.HATCHERY MAN * Telephone Encounter - Katia Marcano RN - 05/18/2024 9:59 AM EST Bhavna MAKI [facility] called in and reports Pt isn't going to be able to go out and get labs drawn today. I let her know what labs provider wanted drawn, and she is going to see what she can get. She said they lavender and green tubes with them and sometimes red. She will call us back to let us know what labs she was able to drawn. * Telephone Encounter - Sultana Catalan RN - 05/18/2024 9:50 AM EST Pt would like a call back as soon as possible after her labs are resulted. * Telephone Encounter - Michael Puga DO - 05/17/2024 8:46 PM EST Order placed for CMP Michael Puga DO * Telephone Encounter - Sultana Catalan RN - 05/17/2024 6:52 PM EST Pt's repeat labs ordered by Key Portillo include a NT PRO BNP, a CBC and Hepatic function panel. No repeat kidney function tests ordered and per 05/12/24 note by Key Portillo, she states that lab work showed sudden significantly decreased kidney function and that was not good and wanted to rechecklab work in 5-7 days. Pended order for repeat CMP. * Telephone Encounter - Sultana Catalan RN - 05/17/2024 6:39 PM EST Pt returned the call and appt made with Dr. Puga for 520 pm on 06/21/24. Pt reminded to stop Lasix and make sure to get labs drawn in AM. * Telephone Encounter - Sultana Catalan RN - 05/17/2024 6:20 PM EST LM for pt to return the call as pt needs appt set up for around 06/22/24 which would be 6 wk f/u. Reinforce to pt to stop Lasix and get labs drawn in the AM. * Telephone Encounter - Michael Puga DO - 05/17/2024 6:11 PM EST Agree with need for lab work Agree with need for follow up in Primary care but would recommend that this visit is after the visit in Cardiology Michael Puga DO * Telephone Encounter - Sultana Catalan RN - 05/17/2024 5:49 PM EST Pt returned the call. Pt states she doesn't notice any swelling but she is concerned as she doesn'tfeel she is urinating as much as she should be. Pt doesn't have an appetite and feels so tired all the time. She states she has lost about 4# since she has been home from the hospital. Wt 219. Also having leg cramps more than normal. When asked pt how many times she has urinated today, pt guesses about 6. She usually goes about 3 times shortly after taking the Lasix in the morning. But pt states she usually has problems with peeing herself and that hasn't been happening. Pt notified to stop Lasix altogether. Verbalizes understanding. Pt is scheduled to see [facility] on 06/01/24. Per Alondra Portillo's OV note on 05/11/24, pt was to schedule a 6 wk follow up which is not scheduled. Does pt need to come to PCP office in addition to [facility] appt? Pt due for labwork as labs drawn on 05/11/24 showed significant decrease in kidney function. Asked ptto get it drawn in the morning if she can. Pt will go to [place] and get it drawn in the morning. * Telephone Encounter - Michael Puga DO - 05/17/2024 12:31 PM EST Please clarify what her edema of her legs is looking like? This was assessed by Key and not myself. I Don't want her to be on the spironolactone and the lasix. Recommend stopping the lasix if her edema is improved Michael Puga DO * Telephone Encounter - Marcie Rodriguez LPN - 05/17/2024 9:46 AM EST Phoned [facility] pharmacy\ with clarification on current meds. Spironolactone 25 mg daily was prescribed by the [facility] also hydralazine 25 mg was prescribed by Kristal [facility]. Lasix 20 mg was just prescribed by Key Portillo, then Lasix 40 mg was prescribed by [facility] May 02. Left message with Bhavna [facility] about above information. Please review and advise further. Marcie Rodriguez LPN * Telephone Encounter - Michael Puga DO - 05/17/2024 9:02 AM EST Please clarify with pharmacy and patient her current diuretic/BLOOD PRESSURE medications that she is picking up and taking * Telephone Encounter - Amanda Pratt RN - 05/16/2024 10:19 AM EST Bhavna with [facility] calls to report duplicate therapy between lasix and spironolactone and lasix and hydralazine. Bhavna is asking if provider wants all medications continued. Hydralazine and Spironolactone are on current medication list but prescription not sent to pharmacy. Please review and advise. Bhavna is requesting a call back at [phone]. Amanda Pratt RN documented in [facility] encounterMi[facility]01-16-2025 Telephone encounter Note * Telephone Encounter - Tameka Marin RN - 05/18/2024 10:43 AM EST Bhavna with [facility] calling in and states she was able to draw all labs needed today. Tameka Marin RN [facility]01-16-[facility] Telephone encounter Note* Telephone Encounter - Key Portillo APRN.CARMELINA - 05/18/2024 10:42 AM EST Most important is CMP to have drawn if able. Agree with below. Pt needs to discontinue lasix all together. This was ordered by [facility] after recent admission for new onset CHF exacerbation. Initially ordered for 40 mg daily, I decreased to 20 mg daily after kidney function was so poor and told pt to repeat labs in 5 days with plan to discontinue all together if swelling and weight gain remained stable with decreased. Thank you, Key Portillo APRN.HATCHERY MAN [facility]01-16-20[facility] Telephone encounter Note* Telephone Encounter - Katia Marcano RN - 05/18/2024 9:59 AM EST Bhavna MAKI [facility] called in and reports Pt isn't going to be able to go out and get labs drawn today. I let her know what labs provider wanted drawn, and she is going to see what she can get. She said they lavender and green tubes with them and sometimes red. She will call us back to let us know what labs she was able to drawn. [facility]01-16-2025 Telephone encounter Note* Telephone Encounter - Sultana Catalan RN - 05/18/2024 9:50 AM EST Pt would like a call back as soon as possible after her labs are resulted. [facility]01-15-2025 Telephone encounter Note* Telephone Encounter - Michael Puga DO - 05/17/2024 8:46 PM EST Order placed for CMP Michael Puga DO [facility]01-15-2025 Telephone encounter Note* Telephone Encounter - Sultana Catalan RN - 05/17/2024 6:52 PM EST Pt's repeat labs ordered by Key Portillo include a NT PRO BNP, a CBC and Hepatic function panel. No repeat kidney function tests ordered and per 05/12/24 note by Key Portillo, she states that lab work showed sudden significantly decreased kidney function and that was not good and wanted to rechecklab work in 5-7 days. Pended order for repeat CMP. [facility]01-15-2025 Telephone encounter Note* Telephone Encounter - Sultana Catalan RN - 05/17/2024 6:39 PM EST Pt returned the call and appt made with Dr. Puga for 520 pm on 06/21/24. Pt reminded to stop Lasix and make sure to get labs drawn in AM. [facility]01-[facility] Telephone encounter Note* Telephone Encounter - Sultana Catalan RN - 05/17/2024 6:20 PM EST LM for pt to return the call as pt needs appt set up for around 06/22/24 which would be 6 wk f/u. Reinforce to pt to stop Lasix and get labs drawn in the AM. [facility] Telephone encounter Note* Telephone Encounter - Michael Puga DO - 05/17/2024 6:11 PM EST Agree with need for lab work Agree with need for follow up in Primary care but would recommend that this visit is after the visit in Cardiology Micheal Puga DO [facility]01-15-2025 Telephone encounter Note* Telephone Encounter - Sultana Catalan RN - 05/17/2024 5:49 PM EST Pt returned the call. Pt states she doesn't notice any swelling but she is concerned as she doesn'tfeel she is urinating as much as she should be. Pt doesn't have an appetite and feels so tired all the time. She states she has lost about 4# since she has been home from the hospital. Wt 219. Also having leg cramps more than normal. When asked pt how many times she has urinated today, pt guesses about 6. She usually goes about 3 times shortly after taking the Lasix in the morning. But pt states she usually has problems with peeing herself and that hasn't been happening. Pt notified to stop Lasix altogether. Verbalizes understanding. [facility] [facility] on 06/01/24. Per Alondra Portillo's OV note on 05/11/24, pt was to schedule a 6 wk follow up which is not scheduled. Does pt need to come to PCP office in addition to [facility] appt? Pt due for labwork as labs drawn on 05/11/24 showed significant decrease in kidney function. Asked ptto get it drawn in the morning if she can. Pt will go to [place] and get it drawn in the morning. [facility]01-15-2025 Telephone encounter Note* Telephone Encounter - Michael Puga DO - 05/17/2024 12:31 PM EST Please clarify what her edema of her legs is looking like? This was assessed by Key and not myself. I Don't want her to be on the spironolactone and the lasix. Recommend stopping the lasix if her edema is improved Michael Puga DO [facility]01-15-2025 Telephone encounter Note* Telephone Encounter - Marcie Rodriguez LPN - 05/17/2024 9:46 AM EST [facility] with clarification on current meds. Spironolactone 25 mg daily was prescribed by the [facility] also hydralazine 25 mg was prescribed by Kristal Watkins [facility]. Lasix 20 mg was just prescribed by Key Portillo, then Lasix 40 mg was prescribed by [facility] May 02. Left message with Bhavna [facility] about above information. Please review and advise further. Marcie Rodriguez LPN [facility]01-15-2025 Telephone encounter Note* Telephone Encounter - Michael Puga DO - 05/17/2024 9:02 AM EST Please clarify with pharmacy and patient her current diuretic/BLOOD PRESSURE medications that she is picking up and taking [facility]01-14-2025 Telephone encounter Note* Telephone Encounter - Amanda Pratt, GLYNN - 05/16/2024 10:19 AM EST Bhavna with [facility] calls to report duplicate therapy between lasix and spironolactone and lasix and hydralazine. Bhavna is asking if provider wants all medications continued. Hydralazine and Spironolactone are on current medication list but prescription not sent to pharmacy. Please review and advise. Bhavna is requesting a call back at [phone]. Amanda Pratt RN [facility]01-10-2025 Telephone encounter Note* Telephone Encounter - Key Portillo APRN.CARMELINA - 05/12/2024 2:22 PM EST Agree with below. We are repeating BNP lab work in 5-7 days as well to check for this. Thank you, Key Portillo APRN.HATCHERY MAN [facility]01-10-2025 Miscellaneous Notes* Telephone Encounter - Key Portillo APRN.CARMELINA - 05/12/2024 2:22 PM EST Agree with below. We are repeating BNP lab work in 5-7 days as well to check for this. Thank you, Key Portillo APRN.HATCHERY MAN * Telephone Encounter - Sultana Catalan RN - 05/12/2024 1:19 PM EST Pt calling back in as she states she got a call earlier that her kidney function did not look good so they decreased her Lasix by half down to 20 mg per day. Pt concerned about retaining fluid with the decreased dose. Explained to pt that she needs to repeat the labwork in 5-7 days so we can see ifdecreasing the Lasix improves her kidney function. Then we can reevaluated pt's swelling at that vernell e. Pt verbalizes understanding. [facility] Telephone encounter Note * Telephone Encounter - Sultana Catalan RN - 05/12/2024 1:19 PM EST Pt calling back in as she states she got a call earlier that her kidney function did not look good so they decreased her Lasix by half down to 20 mg per day. Pt concerned about retaining fluid with the decreased dose. Explained to pt that she needs to repeat the labwork in 5-7 days so we can see ifdecreasing the Lasix improves her kidney function. Then we can reevaluated pt's swelling at that vernell e. Pt verbalizes understanding. [facility]01-10-2025 Telephone encounter Note* Telephone Encounter - Jacque Machuca MA - 05/12/2024 1:04 PM EST Pt informed Jacque Machuca MA [facility]01-10-2025 Miscellaneous Notes* Telephone Encounter - Jacque Machuca MA - 05/12/2024 1:04 PM EST Pt informed Jacque Machuca MA * Telephone Encounter - Key Portillo APRN.CARMELINA - 05/12/2024 12:56 PM EST I can send refill to pharmacy. The following approved medication requests have been transmitted electronically. Requested Prescriptions Signed Prescriptions Disp Refills furosemide (LASIX) 20 mg tablet 30 tablet 0 Sig: Take 1 tablet by mouth once daily. Authorizing Provider: KEY PORTILLO LORazepam (ATIVAN) 0.5 mg 30 tablet 2 Sig: Take 1 tablet by mouth two times a day as needed (anxiety attack). Authorizing Provider: KEY PORTILLO APRN.CNP PDMP website checked and validated. All prescriptions have been APPROPRIATELY filled. No suspiciousactivity was identified. 05/12/2024 by Key Portillo APRN.CNP * Telephone Encounter - Marisol Cano LPN - 05/12/2024 12:43 PM EST Spoke with pt gave information provided. Pt voices understanding. She states she spoke with you about some ativan yesterday in appointment but nothing was at [facility] when she went. * Telephone Encounter - Key Portillo APRN.CARMELINA - 05/12/2024 9:08 AM EST Please call patient and let her know that lab work results are back and show sudden significantly decreased kidney function. This is not good. We need to decrease lasix regimen --- I want to descrease to 20 mg daily and recheck lab work in 5-7 days. If SOB or swelling return within that time, please let me know. May need to discontinue all together if lab work does not improve. Would like to repeat CBC to recheck the current elevation in WBC. Both are ordered. BNP was normal so we will recheck this with decreasing lasix. Thank you, Key Portillo APRN.CARMELINA [facility] Telephone encounter Note * Telephone Encounter - Key Portillo APRN.CNP - 05/12/2024 12:56 PM EST I can send refill to pharmacy. The following approved medication requests have been transmitted electronically. Requested Prescriptions Signed Prescriptions Disp Refills furosemide (LASIX) 20 mg tablet 30 tablet 0 Sig: Take 1 tablet by mouth once daily. Authorizing Provider: KEY PORTILLO LORazepam (ATIVAN) 0.5 mg 30 tablet 2 Sig: Take 1 tablet by mouth two times a day as needed (anxiety attack). Authorizing Provider: KEY PORTILLO APRN.CNP PDMP website checked and validated. All prescriptions have been APPROPRIATELY filled. No suspiciousactivity was identified. 05/12/2024 by Key Portillo APRN.CARMELINA [facility]01-10-2025 Telephone encounter Note* Telephone Encounter - Marisol Cano LPN - 05/12/2024 12:43 PM EST Spoke with pt gave information provided. Pt voices understanding. She states she spoke with you about some ativan yesterday in appointment but nothing was at [facility] when she went. [facility]01-10-2025 Telephone encounter Note* Telephone Encounter - Key Portillo APRN.CARMELINA - 05/12/2024 9:08 AM EST Please call patient and let her know that lab work results are back and show sudden significantly decreased kidney function. This is not good. We need to decrease lasix regimen --- I want to descrease to 20 mg daily and recheck lab work in 5-7 days. If SOB or swelling return within that time, please let me know. May need to discontinue all together if lab work does not improve. Would like to repeat CBC to recheck the current elevation in WBC. Both are ordered. BNP was normal so we will recheck this with decreasing lasix. Thank you, Key Portillo APRN.HATCHERY MAN [facility]01-09-2025 History of Present illness Narrative* Key Portillo APRN.HATCHERY MAN - 05/11/2024 1:00 PM EST Chief Complaint Patient presents with: Transition Of Care: Was i wfor chf flae was discharged on 05/02/24 HPI Michael Meier is a 84 year old female who presents here today for Above Complaints. Michael is an established patient of Dr. Edd DO. Concerns today... Hospital discharge -- [facility] hospital admission from 04/30-05/02 d/t hypoxia and CHF exacerbation. Pt was having fatigue anddyspnea. Took her pulse ox at home and it was 83% so she hit her life alert and sent to ER. Cxr andCT chest were unremarkable besides edema and pleural effusions. Pt was admitted and started on IV lasix and 4L NC of oxygen. 4 liters of diuresis and 5 lbs lost. Hypoxia improved and discharged on nooxygen. RX for 40 mg daily lasix continued. Thyroid labs were abnormal during admission. Elevated TSH and T4. In office today... Pt reports feeling better since discharge besides fatigue and poor sleep. Pt denies any edema or swelling since discharge. Pt weight is back to baseline and maintaining this. Pt reports dyspnea improved. She has PT and HH aide coming to house to help with medications, exercise, and checking vitals. Shecontinues on lasix regimen -- pt unsure of dosage though. Pt asking about medication regimen for RLS. Has spoke about this with Dr. Pgua. Pt is able to get to sleep fine but is woken up numerous times per night. Wearing CPAP more routinely recently. Taking ativan at night without much relief. Sleeps better in recliner with head raised. Is scheduled to see Dr. Hickey on 06/01. Doing well without oxygen use at home. Past medical history, appointments, medications, allergies reviewed. Previous Medical History PAST MEDICAL HISTORY Diagnosis Date A-fib (HCC) Allergic rhinitis, cause unspecified Arrhythmia Arthritis Greater trochanteric bursitis of left hip Melanoma of skin, site unspecified 2004 back Osteoarthritis of left hip Other and unspecified hyperlipidemia Pulmonary hypertension (HCC) Situational mixed anxiety and depressive disorder Sleep apnea Stroke (HCC) Unspecified essential hypertension Unspecified gastritis and gastroduodenitis Previous Surgical History PAST SURGICAL HISTORY Procedure Laterality Date ABDOMINAL SURGERY HX APPENDECTOMY HX ARTHRP ACETBLR/PROX FEM PROSTC AGRFT/ALGRFT 12/09/2003 right hip, redone, 07/2004 ARTHRP ACETBLR/PROX FEM PROSTC AGRFT/ALGRFT Left 07/2016 ARTHRP KNE CONDYLE&PLATU MEDIAL&LAT COMPARTMENTS 11/15/2009 Knee replacement, total -Left - [facility] ARTHRP KNE CONDYLE&PLATU MEDIAL&LAT COMPARTMENTS 12/30/2009 Right knee replaced COLONOSCOPY FLX DX W/COLLJ SPEC WHEN PFRMD 06/29/2017 Colonoscopy EGD 10/17/2020 EGD W/O [facility] SPEC VARICIES INJ 01/08/2022 EGD W/O [facility] SPEC VARICIES INJ 03/31/2024 [facility] ESOPHAGOGASTRODUODENOSCOPY TRANSORAL DIAGNOSTIC 11/29/2000 EGD ESOPHAGOGASTRODUODENOSCOPY TRANSORAL DIAGNOSTIC 06/29/2017 EGD JOINT REPLACEMENT HX LAPS SURG CHOLECYSTECTOMY W/CHOLANGIOGRAPHY PACEMAKER IMPLANT 01/2011 SKIN BIOPSY HX TONSILLECTOMY HX TOTAL ABDOMINAL HYSTERECT W/WO RMVL TUBE OVARY Hysterectomy, GAL Family History FAMILY HISTORY Problem Relation Age of Onset Coronary Artery Disease Mother other (cardiac arrest) Mother Coronary Artery Disease Father Diabetes Father other (congestive heart failure) Father Patient Allergies ALLERGIES Allergen Reactions Ciprofloxacin Rash Demerol [Meperidine* Vomiting Opioids - Morphine * Intolerance nausea, dizzy, sees things Opioids-Meperidine * nausea/vomiting Penicillin G hives Pravachol [Pravasta* Other: See Comments Leg cramps Sulfa (Sulfonamide * hives Vicodin [Hydrocodon* Intolerance dizzy,nausea,vomiting,headache Zithromax [Azithrom* Intolerance Current Medications Current Outpatient Medications on File Prior to Visit Medication Sig PARoxetine (PAXIL) 20 mg tablet Take 1 tablet by mouth once daily. In the evening sucralfate (CARAFATE) 100 mg/mL suspension Take 10 mL by mouth four times daily. Omeprazole Magnesium (PRILOSEC OTC) 20 mg tablet Take 1 tablet by mouth once daily. cyanocobalamin (VITAMIN B-12) 1,000 mcg tab Take 1,000 mcg by mouth once daily. spironolactone (ALDACTONE) 25 mg tablet Take 25 mg by mouth once daily. hydrALAZINE (APRESOLINE) 25 mg tablet Take 25 mg by mouth once daily. albuterol HFA (PROVENTIL HFA, VENTOLIN HFA) 90 mcg/actuation inhaler Inhale 2 Puffs as instructed every 4 hours as needed. LORazepam (ATIVAN) 0.5 mg Take 1 tablet by mouth two times a day as needed (anxiety attack). meloxicam (MOBIC) 15 mg tablet Take 1 tablet by mouth once daily. Take with food. fluticasone (FLOVENT) 110 mcg/actuation inhaler Inhale 1 Puff as instructed two times a day. Shake well before use. Rinse mouth after use. levothyroxine (SYNTHROID) 50 mcg tablet Take 1 tablet by mouth daily before breakfast. In the morning, Take on empty stomach at least 30 min before eating. For thyroid. rosuvastatin (CRESTOR) 10 mg tablet Take 1 tablet by mouth daily at bedtime. guaiFENesin (MUCINEX) 600 mg 12 hr tablet Take 1 tablet by mouth two times a day as needed for cold/allergy symptoms. RESTASIS 0.05 % ophthalmic emulsion Azelastine HCl (OPTIVAR) 0.05 % ophthalmic solution aspirin, enteric coated (ASPIRIN, ENTERIC COATED) 81 mg EC tablet Take 81 mg by mouth once daily. PACERONE 200 mg tablet Take 200 mg by mouth once daily. ubidecarenone (COQ-10 ORAL) Take by mouth. diltiazem CD (CARDIZEM CD) 240 mg 24 hr capsule Take 1 capsule by mouth once daily. losartan (COZAAR) 100 mg tablet Take 1 tablet by mouth once daily. No current facility-administered medications on file prior to visit. Social History Social History Tobacco Use Smoking status: Never Smokeless tobacco: Never Vaping Use Vaping status: Never Used Substance Use Topics Alcohol use: Not Currently Comment: rarely Drug use: No REVIEW OF SYSTEMS: as above Reviewed relevant PMHx, PSHx, Social Hx, current medications and allergies. Review of Symptoms REVIEW OF SYSTEMS See HPI. EXAM: BP 130/58 (BP Site: Left Arm, BP Position: Sitting, BP Cuff Size: Large Adult) Pulse 60 Wt 100.9 kg (222 lb 6.4 oz) SpO2 95% BMI 37.01 kg/m General Appearance: Well appearing, alert, in no acute distress, well-hydrated, well nourished.. Skin: Skin color, texture, turgor normal, no suspicious rashes or lesions. Head: Normocephalic, no masses, lesions, tenderness or abnormalities. Lungs: Lungs clear to auscultation. No wheezing, rhonchi, rales.. Heart: RRR without murmur, gallop, or rubs. No ectopy. Extremities: No deformities, edema, skin discoloration, clubbing or cyanosis. Good capillary refill. . Neurologic: Gait normal. Reflexes normal and symmetric. Sensation grossly intact.. Health Maintenance List Covid-19 Vaccine( season) due on 01/02/2024 Advance Directive Discussion Never done RSV Vaccine(1 - 1-dose 75+ series) due on 10/13/2024 Diabetes Screening due on 11/24/2026 DTaP,Tdap,Td Vaccine(3 - Td or Tdap) due on 12/24/2028 Bone Density Screening Completed Influenza Vaccine Completed Shingrix Vaccine Completed Pneumococcal Vaccine: 50+ Completed HPV Vaccine Aged Out Colorectal Cancer Screening Discontinued ASSESSMENT/PLAN: 1. Hospital discharge follow-up - ICD9: V67.59, ICD10: Z09 (primary diagnosis) Lab work as below to check potassium level and kidney function due to new lasix regimen. Reach out to to make sure lasix dosage is accurate. CXR d/t SOB when lying down at night -- want to make sure no fluid retention in lungs. Continue fluid restriction. Continue to monitor weight and edema. Thyroid labs d/t abnormalities when in the hospital. - THYROID STIMULATING HORMONE - T4 FREE/FREE THYROXINE - COMPLETE BLOOD COUNT AND DIFFERENTIAL - COMPREHENSIVE METABOLIC PANEL - NT PRO BNP - XR CHEST 2V FRONTAL/LAT - ROPINIROLE 1 MG TABLET 2. Congestive heart failure, unspecified HF chronicity, unspecified heart failure type (HCC) - ICD9: 428.0, ICD10: I50.9 See above. - COMPLETE BLOOD COUNT AND DIFFERENTIAL - COMPREHENSIVE METABOLIC PANEL - NT PRO BNP - XR CHEST 2V FRONTAL/LAT 3. Thyroid disease - ICD9: 246.9, ICD10: E07.9 See above. - THYROID STIMULATING HORMONE - T4 FREE/FREE THYROXINE 4. Restless leg - ICD9: 333.94, ICD10: G25.81 Try requip 1 mg about 1 hour before bedtime. See if this helps improve sleep. Continue wearing CPAP routinely. Do not take ativan with requip. Pt aware. - ROPINIROLE 1 MG TABLET RTO in 6 weeks, sooner if needed, to reassess. Prescription instructions reviewed with patient as applicable. Potential red flag symptoms discussed with the patient. Reviewed appropriate action plan to take if red flag symptoms occur. Patient agreeable to treatment plan. Key Abrams APRN.CNP [address] [place] [id number] documented in [facility]25 NoteHNO ID: [id number] Author: KEY PORTILLO APRN.CNP Service: ? Author Type: Nurse Practitioner Type: Progress Notes Filed: 05/11/2024 14:08 Note Text: Chief Complaint Patient presents with: Transition Of Care: Was i wfor chf flae was discharged on 05/02/24 HPI Michael Meier is a 84 year old female who presents here today for Above Complaints. Michael is an established patient of Dr. Edd DO. Concerns today... Hospital discharge -- [facility] hospital admission from 04/30-05/02 d/t hypoxia and CHF exacerbation. Pt was having fatigue and dyspnea. Took her pulse ox at home and it was 83% so she hit her life alert and sent to ER. Cxr and CT chest were unremarkable besides edema and pleural effusions. Pt was admitted and started on IV lasix and 4L NC of oxygen. 4 liters of diuresis and 5 lbs lost. Hypoxia improved and discharged on no oxygen. RX for 40 mg daily lasix continued. Thyroid labs were abnormal during admission. Elevated TSH and T4. In office today... Pt reports feeling better since discharge besides fatigue and poor sleep. Pt denies any edema or swelling since discharge. Pt weight is back to baseline and maintaining this. Pt reports dyspnea improved. She has PT and HH aide coming to house to help with medications, exercise, and checking vitals. She continues on lasix regimen -- pt unsure of dosage though. Pt asking about medication regimen for RLS. Has spoke about this with Dr. Puga. Pt is able to get to sleep fine but is woken up numerous times per night. Wearing CPAP more routinely recently. Taking ativan at night without much relief. Sleeps better in recliner with head raised. Is scheduled to see Dr. Hickey on 06/01. Doing well without oxygen use at home. Past medical history, appointments, medications, allergies reviewed. Previous Medical History PAST MEDICAL HISTORY Diagnosis Date A-fib (HCC) Allergic rhinitis, cause unspecified Arrhythmia Arthritis Greater trochanteric bursitis of left hip Melanoma of skin, site unspecified 2003 back Osteoarthritis of left hip Other and unspecified hyperlipidemia Pulmonary hypertension (HCC) Situational mixed anxiety and depressive disorder Sleep apnea Stroke (HCC) Unspecified essential hypertension Unspecified gastritis and gastroduodenitis Previous Surgical History PAST SURGICAL HISTORY Procedure Laterality Date ABDOMINAL SURGERY HX APPENDECTOMY HX ARTHRP ACETBLR/PROX FEM PROSTC AGRFT/ALGRFT 12/09/2003 right hip, redone, 07/2004 ARTHRP ACETBLR/PROX FEM PROSTC AGRFT/ALGRFT Left 07/2016 [facility] CON[facility]LE[facility]IALANDLAT COMPARTMENTS 11/15/2009 Knee replacement, total -[facility] ARTHRP E CONDYLEANDPLATU MEDIALANDLAT COMPARTMENTS 12/30/2009 Right knee replaced COLONOSCOPY FLX DX W/COLLJ SPEC WHEN PFRMD 06/29/2017 Colonoscopy EGD 10/17/2020 EGD W/O [facility] SPEC VARICIES INJ 01/08/2022 EGD W/O [facility] SPEC VARICIES INJ 03/31/2024 [facility] ESOPHAGOGASTRODUODENOSCOPY TRANSORAL DIAGNOSTIC 11/29/2000 EGD ESOPHAGOGASTRODUODENOSCOPY TRANSORAL DIAGNOSTIC 06/29/2017 EGD JOINT REPLACEMENT HX LAPS SURG CHOLECYSTECTOMY W/CHOLANGIOGRAPHY PACEMAKER IMPLANT 01/2011 SKIN BIOPSY HX TONSILLECTOMY HX TOTAL ABDOMINAL HYSTERECT W/WO RMVL TUBE OVARY Hysterectomy, GAL Family History FAMILY HISTORY Problem Relation Age of Onset Coronary Artery Disease Mother other (cardiac arrest) Mother Coronary Artery Disease Father Diabetes Father other (congestive heart failure) Father Patient Allergies ALLERGIES Allergen Reactions Ciprofloxacin Rash Demerol [Meperidine* Vomiting Opioids - Morphine * Intolerance nausea, dizzy, sees things Opioids-Meperidine * nausea/vomiting Penicillin G hives Pravachol [Pravasta* Other: See Comments Leg cramps Sulfa (Sulfonamide * hives Vicodin [Hydrocodon* Intolerance dizzy,nausea,vomiting,headache Zithromax [Azithrom* Intolerance Current Medications Current Outpatient Medications on File Prior to Visit Medication Sig PARoxetine (PAXIL) 20 mg tablet Take 1 tablet by mouth once daily. In the evening sucralfate (CARAFATE) 100 mg/mL suspension Take 10 mL by mouth four times daily. Omeprazole Magnesium (PRILOSEC OTC) 20 mg tablet Take 1 tablet by mouth once daily. cyanocobalamin (VITAMIN B-12) 1,000 mcg tab Take 1,000 mcg by mouth once daily. spironolactone (ALDACTONE) 25 mg tablet Take 25 mg by mouth once daily. hydrALAZINE (APRESOLINE) 25 mg tablet Take 25 mg by mouth once daily. albuterol HFA (PROVENTIL HFA, VENTOLIN HFA) 90 mcg/actuation inhaler Inhale 2 Puffs as instructed every 4 hours as needed. LORazepam (ATIVAN) 0.5 mg Take 1 tablet by mouth two times a day as needed (anxiety attack). meloxicam (MOBIC) 15 mg tablet Take 1 tablet by mouth once daily. Take with food. fluticasone (FLOVENT) 110 mcg/actuation inhaler Inhale 1 Puff as instructed two times a day. Shake well before use (more content not included)...[facility]01-06-2025 Telephone encounter Note* Telephone Encounter - Key Portillo APRN.CNP - 05/08/2024 10:47 AM EST Noted. Will address then. Thank you, Key Portillo APRN.HATCHERY MAN [facility]01-06-2025 Miscellaneous Notes* Telephone Encounter - Key Portillo APRN.CNP - 05/08/2024 10:47 AM EST Noted. Will address then. Thank you, Key Portillo APRN.CNP * Telephone Encounter - Michael Puga DO - 05/08/2024 10:36 AM EST Will have her discuss with Key at office visit Michael Puga DO * Telephone Encounter - Amanda Pratt RN - 05/08/2024 8:59 AM EST Marifer with [facility] calls to let provider know that patient is having increasing pain with RLS especially at night. Marifer asking if provider would order medication. Patient not currently taking any medication for RLS. Patient previously scheduled for hospital follow up on 05/11/2024 with Key Portillo. Amanda Pratt RN documented in [facility]Mi[facility]01-[facility]-2025 Telephone encounter Note * Telephone Encounter - Michael Puga DO - 05/08/2024 10:36 AM EST Will have her discuss with Key at office visit Michael Puga DO [facility]01-06-2025 Telephone encounter Note* Telephone Encounter - Amanda Pratt RN - 05/08/2024 8:59 AM EST Marifer with [facility] calls to let provider know that patient is having increasing pain with RLS especially at night. Marifer asking if provider would order medication. Patient not currently taking any medication for RLS. Patient previously scheduled for hospital follow up on 05/11/2024 with Key Portillo. Amanda Pratt RN [facility]01-03-2025 Telephone encounter Note* Telephone Encounter - Michael Pgua DO - 05/05/2024 4:40 PM EST Noted Michael Puga DO [facility]01-03-2025 Miscellaneous Notes* Telephone Encounter - Michael Puga DO - 05/05/2024 4:40 PM EST Noted Michael Puga DO * Telephone Encounter - Katia Marcano RN - 05/05/2024 3:58 PM EST Sergio PT with [facility] called in and reports they will be seeing Pt twice a week for 3 weeks for functional mobility training. documented in this encounterMi[facility]01-[facility]-2025 Telephone encounter Note * Telephone Encounter - Katia Marcano RN - 05/05/2024 3:58 PM EST Sergio PT with [facility] called in and reports they will be seeing Pt twice a week for 3 weeks for functional mobility training. [facility]01-03-2025 Telephone encounter Note* Telephone Encounter - Jacque Machuca MA - 05/05/2024 8:54 AM EST Suha Machuca MA [facility]01-03-2025 Miscellaneous Notes* Telephone Encounter - Jacque Machuca MA - 05/05/2024 8:54 AM EST Suha Machuca MA * Telephone Encounter - Michael Puga DO - 05/05/2024 8:36 AM EST Ok with orders Michael Puga DO * Telephone Encounter - Aly Tolentino LPN - 05/04/2024 2:24 PM EST Suha from [facility] calling with plan of care. Only need to call her back if pcp not agreeable with orders. They will be seeing pt 1x wk for 1 wk then 2xs wk for 3 wks then 1x wk for 1 wk for disease and medication education. Aly Tolentino LPN [facility] Telephone encounter Note * Telephone Encounter - Michael Puga DO - 05/05/2024 8:36 AM EST Ok with orders Michael Puga DO [facility]01-[facility]25 NoteHNO ID: [id number] Author: Loli ADAMSON RN Service: ? Author Type: Registered Nurse Type: Progress Notes Filed: 05/04/2024 14:41 Note Text: TRANSITION CARE MANAGEMENT (TCM) INITIAL CONTACT [employer] Outreach Provider Action/FYI: Pt reports [facility] is going to be visiting pt for PT OT SN Initial contact with patient post discharge, spoke to patient. Patient identified by name and . TRANSITION CARE MANAGEMENT INITIAL OUTREACH DOCUMENTATION: 05/04/2024 Date of Outreach: Outreach Attempt 1: Contact Made Date of Discharge 05/02/2024 SUMMARY: -Pt discharged from [facility] on 05-02-24. -Admitted for: CHF Do you have a hospital follow up appointment with your PCP? Appointment on 05-11-24 with Key Portillo. Yes. Remind patient of appointment date, time, and location. If not within 14 calendar days of discharge - please reschedule accordingly. MEDICATIONS: Many patients have questions or concerns about their medications once they are home. Were you prescribed any new medications? If yes, what are those medications? Lasix 40 mg once daily in morning. Were you told to hold any medications? No Were any of your medications discontinued? No Do you have any questions about getting or taking your medications? No Your discharge instructions/After visit Summary (AVS) are important in guiding you through the recovery process. Is there anything I might help you understand? No Do you have all the necessary equipment and supplies at home? Yes Medical records from recent [facility] History of Present illness Narrative* Loli Adamson RN - 05/04/2024 2:31 PM EST TRANSITION CARE MANAGEMENT (TCM) INITIAL CONTACT [employer] Outreach Provider Action/FYI: Pt reports [facility] is going to be visiting pt for PT OT SN Initial contact with patient post discharge, spoke to patient. Patient identified by name and . TRANSITION CARE MANAGEMENT INITIAL OUTREACH DOCUMENTATION: 05/04/2024 Date of Outreach: Outreach Attempt 1: Contact Made Date of Discharge 05/02/2024 SUMMARY: -Pt discharged from [facility] on 05-02-24. -Admitted for: CHF Do you have a hospital follow up appointment with your PCP? Appointment on 05-11-24 with Key Portillo. Yes. Remind patient of appointment date, time, and location. If not within 14 calendar days of discharge - please reschedule accordingly. MEDICATIONS: Many patients have questions or concerns about their medications once they are home. Were you prescribed any new medications? If yes, what are those medications? Lasix 40 mg once daily in morning. Were you told to hold any medications? No Were any of your medications discontinued? No Do you have any questions about getting or taking your medications? No Your discharge instructions/After visit Summary (AVS) are important in guiding you through the recovery process. Is there anything I might help you understand? No Do you have all the necessary equipment and supplies at home? Yes Medical records from recent hospitalization: Care Everywhere documented in [facility] Telephone encounter Note * Telephone Encounter - Aly Tolentino LPN - 05/04/2024 2:24 PM EST Suha from [facility] calling with plan of care. Only need to call her back if pcp not agreeable with orders. They will be seeing pt 1x wk for 1 wk then 2xs wk for 3 wks then 1x wk for 1 wk for disease and medication education. Aly Tolentino LPN [facility]01-02[facility] Telephone encounter Note* Telephone Encounter - Milvia Howard - 05/04/2024 11:09 AM EST Requesting qty. 90 Patient has been identified by name and date of : Yes Patient phones for refill(s): Requested Prescriptions Pending Prescriptions Disp Refills PARoxetine (PAXIL) 20 mg tablet 90 tablet 1 Sig: Take 1 tablet by mouth once daily. In the evening Date of last office visit in primary care: 03/01/2024 Date of next office visit in primary care: 08/30/2024 Please advise. Thank you. Milvia Howard. [facility]01-02-20[facility] Miscellaneous Notes* Telephone Encounter - Milvia Howard - 05/04/2024 11:09 AM EST Requesting qty. 90 Patient has been identified by name and date of : Yes Patient phones for refill(s): Requested Prescriptions Pending Prescriptions Disp Refills PARoxetine (PAXIL) 20 mg tablet 90 tablet 1 Sig: Take 1 tablet by mouth once daily. In the evening Date of last office visit in primary care: 03/01/2024 Date of next office visit in primary care: 08/30/2024 Please advise. Thank you. Milvia Howard. documented in this encounterMi[facility]01-02-2025 NotePatient Outreach (FAMPWS) MICHAEL MEIER ([id number]) 1940 F Date Time Provider Department 05/04/24 MICHAEL PUGA During your visit today, we recorded the following information about you: Loli Adamson RN 05/04/2024 2:41 PM Signed TRANSITION CARE MANAGEMENT (TCM) INITIAL CONTACT [employer] Outreach Provider Action/FYI: Pt reports [facility] is going to be visiting pt for PT OT SN Initial contact with patient post discharge, spoke to patient. Patient identified by name and . TRANSITION CARE MANAGEMENT INITIAL OUTREACH DOCUMENTATION: 05/04/2024 Date of Outreach: Outreach Attempt 1: Contact Made Date of Discharge 05/02/2024 SUMMARY: -Pt discharged from [facility] on 05-02-24. -Admitted for: CHF Do you have a hospital follow up appointment with your PCP? Appointment on 05-11-24 with Key Portillo. Yes. Remind patient of appointment date, time, and location. If not within 14 calendar days of discharge - please reschedule accordingly. MEDICATIONS: Many patients have questions or concerns about their medications once they are home. Were you prescribed any new medications? If yes, what are those medications? Lasix 40 mg once daily in morning. Were you told to hold any medications? No Were any of your medications discontinued? No Do you have any questions about getting or taking your medications? No Your discharge instructions/After visit Summary (AVS) are important in guiding you through the recovery process. Is there anything I might help you understand? No Do you have all the necessary equipment and supplies at home? Yes Medical records from recent hospitalization: Care Everywhere Allergies As of Date: 05/04/2024 Noted Allergy Reaction CIPROFLOXACIN 09/05/2018 2 - Rash DEMEROL (MEPERIDINE (PF)) 02/06/2011 11 - Vomiting OPIOIDS - MORPHINE ANALOGUES 03/17/2001 5 - Intolerance Comments: nausea, dizzy, sees things OPIOIDS-MEPERIDINE AND RELATED 02/17/2001 Comments: nausea/vomiting PENICILLIN G 02/17/2001 Comments: imani PRAVACHOL (PRAVASTATIN SODIUM) 03/09/2016 14 - Other: See Comments Comments: Leg cramps SULFA (SULFONAMIDE ANTIBIOTICS) 03/17/2001 Comments: imani VICODIN (HYDROCODONE-ACETAMINOPHE*01/08/2005 5 - Intolerance Comments: dizzy,nausea,vomiting,headache ZITHROMAX (AZITHROMYCIN) 05/20/2017 5 - Intolerance Date Reviewed: 04/10/2024 Reviewed by: Sharon Jarrett APRN.HATCHERY MAN - Fully Assessed Reason for Visit: Transition Of Care [4074] Prescriptions as of 05/04/2024 - sucralfate (CARAFATE) 100 mg/mL suspension Take 10 mL by mouth four times daily. - Omeprazole Magnesium (PRILOSEC OTC) 20 mg tablet Take 1 tablet by mouth once daily. - cyanocobalamin (VITAMIN B-12) 1,000 mcg tab Take 1,000 mcg by mouth once daily. - spironolactone (ALDACTONE) 25 mg tablet Take 25 mg by mouth once daily. - hydrALAZINE (APRESOLINE) 25 mg tablet Take 25 mg by mouth once daily. - albuterol HFA (PROVENTIL HFA, VENTOLIN HFA) 90 mcg/actuation inhaler Inhale 2 Puffs as instructed every 4 hours as needed. - LORazepam (ATIVAN) 0.5 mg Take 1 tablet by mouth two times a day as needed (anxiety attack). - meloxicam (MOBIC) 15 mg tablet Take 1 tablet by mouth once daily. Take with food. - fluticasone (FLOVENT) 110 mcg/actuation inhaler Inhale 1 Puff as instructed two times a day. Shake well before use. Rinse mouth after use. - levothyroxine (SYNTHROID) 50 mcg tablet Take 1 tablet by mouth daily before breakfast. In the morning, Take on empty stomach at least 30 min before eating. For thyroid. - PARoxetine (PAXIL) 20 mg tablet Take 1 tablet by mouth once daily. In the evening - rosuvastatin (CRESTOR) 10 mg tablet Take 1 tablet by mouth daily at bedtime. - guaiFENesin (MUCINEX) 600 mg 12 hr tablet Take 1 tablet by mouth two times a day as needed for cold/allergy symptoms. - RESTASIS 0.05 % ophthalmic emulsion - Azelastine HCl (OPTIVAR) 0.05 % ophthalmic solution - aspirin, enteric coated (ASPIRIN, ENTERIC COATED) 81 mg EC tablet Take 81 mg by mouth once daily. - PACERONE 200 mg tablet Take 200 mg by mouth once daily. - ubidecarenone (COQ-10 ORAL) Take by mouth. - diltiazem CD (CARDIZEM CD) 240 mg 24 hr capsule Take 1 capsule by mouth once daily. - losartan (COZAAR) 100 mg tablet Take 1 tablet by mouth once daily. Problem List As Of Date 05/04/2024 Noted Resolved MALIG MELANOMA TRUNK [C43.59] 02/17/2001 Melanoma of skin, site unspecified [C43.9] 01/09/2012 ALLERGIC RHINITIS NOS [J30.9] Other and unspecified hyperlipidemia [E78.5] 03/11/2015 Primary hypertension [I10] Unspecified gastritis and gastroduodenitis [535* 03/11/2015 Actinic keratosis [L57.0] 01/20/2007 03/11/2015 Other chronic dermatitis due to solar radiation*01/20/2007 01/09/2012 Scar condition and fibrosis of skin [L90.5] 01/20/2007 03/11/2015 SOLAR LENGINES///DYSCHR (more content not included)...[facility] 05-02-2024 [facility] Medical Records Department [address] [place] [id number] Discharge Summary 05/02/24 1106 MR#: [id number] Acct: [id number] Name: MICHAEL MEIER Rep #: [id number] : 1940 84 From: Jonny Vicente MD PCP: Dr. Michael Puga DO Status:ADM IN Location: ICU [place] [address] Providers Date of Admission: 04/30/24 Primary Care Physician: Dr. Michael Puga DO Reason For Visit: HYPOXIA, HFPEF EXACERBATION Diagnosis Discharge Diagnosis (1) Hypoxia: Status: Acute Code(s): R09.02 - Hypoxemia (2) CHF (congestive heart failure): Status: Acute Code(s): I50.9 - Heart failure, unspecified Medications at Discharge Home Medications lorazepam 0.5 mg tablet 0.5 mg PO BID PRN PRN Anxiety 05/13/16 aspirin 81 mg tablet,delayed release (Adult Low Dose Aspirin) 81 mg PO QD [employer] #90 tabs 12/27/18 coenzyme Q10 100 mg capsule (Co Q-10) 100 mg PO DAILY supplement 01/23/20 rosuvastatin 10 mg tablet 10 mg PO DAILY cholesterol 01/23/20 cholecalciferol (vitamin D3) 50 mcg (2,000 unit) capsule 50 mcg PO DAILY vitamin 06/02/21 sucralfate 100 mg/mL oral suspension 10 ml PO TID PRN digestion 11/25/21 paroxetine HCl 20 mg tablet 20 mg PO QHS mental health 12/03/22 diltiazem HCl 240 mg capsule,extended release 24 hr 240 mg PO QHS heart #90 caps 04/08/23 losartan 100 mg tablet 100 mg PO DAILY blood pressure #90 tabs 08/10/23 cyclosporine 0.05 % eye drops in a dropperette (Restasis) 1 drp EACH EYE Q12H eye health 09/27/23 albuterol sulfate 90 mcg/actuation aerosol inhaler (ProAir HFA) 2 puff inhalation Q6H PRN shortness of breath or wheezing #6.7 grams 10/02/23 levothyroxine 50 mcg capsule 50 mcg PO QDAY 01/25/24 spironolactone 25 mg tablet 25 mg PO DAILY #30 tabs 01/25/24 amiodarone 200 mg tablet 200 mg PO DAILY heart #90 tabs 03/14/24 azelastine 0.05 % eye drops 1 drp ophthalmic (eye) BID 04/30/24 fluticasone propionate 110 mcg/actuation HFA aerosol inhaler 1 inh inhalation Q12H 04/30/24 guaifenesin 600 mg tablet, extended release 12 hr (Mucus Relief ER) 600 mg PO BID PRN congestion 04/30/24 hydralazine 25 mg tablet 25 mg PO DAILY 04/30/24 hydrochlorothiazide 12.5 mg capsule 12.5 mg PO DAILY 04/30/24 meloxicam 15 mg tablet 15 mg PO DAILY 04/30/24 vitamin B complex (Balanced B-50 tablet) 1 tab PO DAILY 04/30/24 furosemide 40 mg tablet (Lasix) 40 mg PO DAILY #30 tabs 05/02/24 Hospital Course Operations None Procedures 2-D Echocardiogram Summary of Care Provided Minutes Spent on Discharge: 37 Hospital Course: Per HPI: The patient is an 84 y/o F w/ PMHx: Nonobstructive CAD, HTN, HLD, PAF, Hx sick sinus syndrome s/p pacemaker placement, Anxiety and Depression, GERD w/ Hx GI bleed, Morbid obesity, Chronic anemia, JOSE on BiPAP nightly, CKD stage II based on GFR trending who presents to the [facility] ED on 04/30/24 with history of increasing fatigue, malaise and dyspnea worse with exertion with no associated chest discomfort or marked cough or fever ongoing for at least 4 days however on day of presentation she checked her pulse ox at home because of worsening dyspnea noted that it was 83% prompting life alert and EMS transition to the ED for further evaluation. Workup in the ED included T98, heart rate 66, BP 180/62, respiratory 20, 86% on room air initially with improvement to 98% on 4 L nasal cannula, in the ED when patient was attempting to use the restroom she desaturated down to 85% on 2 L nasal cannula but improved again when she rested, CBC with WBC 13.4, hemoglobin 0.9, MCV 85.8, platelet 236 with left shift, D-dimer 0.83 which is normal for age adjustment, pending coags upon evaluation, CMP with potassium 2.8, carbon oxide 33, BUN/creatinine 13/0.68, GFR 88, glucose 127, magnesium 2.0, T. bili 2.20, D bili 0.52 otherwise hepatic profile not marked appearing, lipase 12, TSH 4.07, BNP 266.9, urinalysis with leukocyte esterase 100 however no marked urine WBCs or RBCs with 2+ bacteria, urine culture pending but low suspicion, rapid SARS COVID/influenza/RSV PCR negative, chest x-ray with small bilateral pleural effusions or pleural thickening with no infiltrates, follow-up CTA chest with no evidence of pulmonary embolus, findings indicative of edema with no evidence of any definitive pneumonia, pleural effusions bilaterally, prehospital EKG/telemetry without acute findings but admission EKG requested. In the ED patient ministered potassium chloride 40 mill equivalents as well as 20 mill equivalents IV in addition to Lasix 40 mg IV x 1. Hospital Course: #1. Acute Hypoxia secondary to Suspected Acutely Decompensated HFpEF: Patient administered IV lasix in the ED, will admit to ICU as PCU status given bed availability, EKG requested, maintain on cardiac telemetry, obtain cardiac enzyme series, obtain serial EKGs, continue IV lasix diuresis, monitor I/Os, maintain on intake restriction, TSH mildly (more content not included)...[facility]12-30-2024 Telephone encounter Note* Telephone Encounter - Julianna Cano LPN - 05/01/2024 4:41 PM EST [facility] informed message left on . [facility]12-30-2024 Miscellaneous Notes* Telephone Encounter - Julianna Moreno LPN - 05/01/2024 4:41 PM EST [facility] informed message left on VM. * Telephone Encounter - Nunu Gonzalez PA-C - 05/01/2024 4:03 PM EST Verbal order okay for PCP to follow for HH. Nunu Gonzalez PA-C * Telephone Encounter - Constance Ervin LPN - 05/01/2024 2:19 PM EST Larissa with [facility] calls to report pt is currently in the hospital with heart failure exacerbation.Pt will most likely be discharged 05/03/24. Pt has orders for PT, OT, and Retirement. Larissa is requesting VO that pcp will follow pt while in HH. Call Larissa with VO from pcp. Constance Ervin LPN documented in this encounterMiami [facility]12-30-2024 Telephone encounter Note * Telephone Encounter - Nunu Gonzalez PA-C - 05/01/2024 4:03 PM EST Verbal order okay for PCP to follow for HH. Nunu Gonzalez PA-C [facility]12-30-2024 Telephone encounter Note* Telephone Encounter - Constance Ervin LPN - 05/01/2024 2:19 PM EST Larissa with [facility] calls to report pt is currently in the hospital with heart failure exacerbation.Pt will most likely be discharged 05/03/24. Pt has orders for PT, OT, and Retirement. Larissa is requesting VO that pcp will follow pt while in HH. Call Larissa with VO from pcp. 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 States it does not hurt to walk or sit but it is hard to get up from a sitting position. Doesnot notice any redness or warmth of leg. States she was doing PT but they had to stop d/t it was aggravating the area. Pt is not able to come in for appointment today. Requesting Thurs if possible. Pt was scheduled 04/27/24 with Key Portillo. Aly Tolentino LPN [facility]12-23-2024 Miscellaneous Notes* Telephone Encounter - Aly Tolentino LPN - 04/24/2024 2:30 PM EST Pt calling stating she has been having muscular leg pain from her knee to her hip of right leg x 2 weeks. States it does not hurt to walk or sit but it is hard to get up from a sitting position. Doesnot notice any redness or warmth of leg. States she was doing PT but they had to stop d/t it was aggravating the area. Pt is not able to come in for appointment today. Requesting Thurs if possible. Pt was scheduled 04/27/24 with Key Portillo. Aly Tolentino LPN documented in this encounterMiami Valley Hospital12-19-2024 NoteHNO ID: [id number] Author: SARAH MERCHANT PT Service: ? Author Type: Physical Therapist Type: Progress Notes Filed: 04/20/2024 15:47 Note Text: Episode Visit Count: 19 Therapist That Will Accept/Oversee The Plan Of Care: Marilee Merchant Start of Care Date: 11/15/23 Onset Date: 10/22/23 Plan of Care Certification Date: 04/18/24 Next Certification Due Date: 05/18/24 REHABILITATION AND SPORTS THERAPY PHYSICAL THERAPY TREATMENT NOTE ASSESSMENT: Michael Meier tolerated the session with decreased activity tolerance due to pain, weakness and fatigue. She demonstrated difficulty with persistent, chronic LE weakness and balance deficits as well as recent onset of R LE pain of unknown etiology. The patient will unlikely benefit from further PT at this time so we agreed to hold/discontinue PT. PLAN FOR NEXT VISIT: hold/discontinue PT d/t lack of progress and to allow rest/healing of R LE pain (d/t suspected muscle strain) SUBJECTIVE: still bothered by R thigh pain mostly just when she stands up from a chair. but she also had increased pain the other night after PT when she was sleeping on her R side. pt thinks the deep tissue massage maybe aggravated it. felt ok last night but it still hurts when she stands up from a seted position. takes meloxicam for back/general pain (since March) AND tylenol prn. pt agrees to finishing/holding PT - d/t lack of progress and to let R LE pain resolve/heal Pain: Pain Pain Location: Thigh - Right Frequency: Intermittent, Standing (sit to stand) Worst Pain Level: 8 OBJECTIVE MEASURES WITH LEVEL OF FUNCTION: Lumbar Spine AROM Lumbar Flexion: Normal Lumbar Extension: Minimal limitation TREATMENT: Therapeutic Exercise: 1: Nu-step L2x12' seat 8 2: shuttle leg press [id number]', SL [id number], [id number] - increased thigh pain 3: *standing back ext 10x (advised pt to try standing back ext AND/or PPU for possible LE radicular pain) 4: sit to stands 2-3x (limited by R thigh pain) 5: standing quad stretch R/L - pt unable to tolerate or perform independently (significant difficulty with L SLS d/t L hip weakness) 6: standing hip ABd 7: advised ice to R thigh Skilled Intervention: Patient was educated in proper exercise technique and purpose for exercises. Reviewed and educated patient on additions/changes for home exercise program as above (*). Skilled judgment was used in selection of appropriate interventions. Correct performance of therapeutic exercises was facilitated with verbal and visual cuing. Educated patient on rationale for performing exercises in regards to improving fitness, including balance, increase ease of ADL, and ROM and function . Patient education as noted. Billing Therapeutic Exercise Treatment Minutes: 44 Skilled Treatment Time Minutes (timed and untimed codes): 44 Total Session Time (minutes): 44 Session Start Time : 1251 Session Stop Time : 1335 Sarah Merchant [facility]12-19-2024 History of Present illness Narrative* Sarah Merchant, PT - 04/20/2024 3:41 PM EST Episode Visit Count: 19 Therapist That Will Accept/Oversee The Plan Of Care: Marilee Merchant Start of Care Date: 11/15/23 Onset Date: 10/22/23 Plan of Care Certification Date: 04/18/24 Next Certification Due Date: 05/18/24 REHABILITATION AND SPORTS THERAPY PHYSICAL THERAPY TREATMENT NOTE ASSESSMENT: Michael Meier tolerated the session with decreased activity tolerance due to pain, weakness and fatigue. She demonstrated difficulty with persistent, chronic LE weakness and balance deficits as well as recent onset of R LE pain of unknown etiology. The patient will unlikely benefit from further PT at this time so we agreed to hold/discontinue PT. PLAN FOR NEXT VISIT: hold/discontinue PT d/t lack of progress and to allow rest/healing of R LE pain (d/t suspected muscle strain) SUBJECTIVE: still bothered by R thigh pain mostly just when she stands up from a chair. but she also had increased pain the other night after PT when she was sleeping on her R side. pt thinks the deep tissue massage maybe aggravated it. felt ok last night but it still hurts when she stands up from a seted position. takes meloxicam for back/general pain (since March) & tylenol prn. pt agrees to finishing/holding PT - d/t lack of progress and to let R LE pain resolve/heal Pain: Pain Pain Location: Thigh - Right Frequency: Intermittent, Standing (sit to stand) Worst Pain Level: 8 OBJECTIVE MEASURES WITH LEVEL OF FUNCTION: Lumbar Spine AROM Lumbar Flexion: Normal Lumbar Extension: Minimal limitation TREATMENT: Therapeutic Exercise: 1: Nu-step L2x12' seat 8 2: shuttle leg press [id number]', SL [id number], [id number] - increased thigh pain 3: *standing back ext 10x (advised pt to try standing back ext &/or PPU for possible LE radicular pain) 4: sit to stands 2-3x (limited by R thigh pain) 5: standing quad stretch R/L - pt unable to tolerate or perform independently (significant difficulty with L SLS d/t L hip weakness) 6: standing hip ABd 7: advised ice to R thigh Skilled Intervention: Patient was educated in proper exercise technique and purpose for exercises. Reviewed and educated patient on additions/changes for home exercise program as above (*). Skilled judgment was used in selection of appropriate interventions. Correct performance of therapeutic exercises was facilitated with verbal and visual cuing. Educated patient on rationale for performing exercises in regards to improving fitness, including balance, increase ease of ADL, and ROM and function . Patient education as noted. Billing Therapeutic Exercise Treatment Minutes: 44 Skilled Treatment Time Minutes (timed and untimed codes): 44 Total Session Time (minutes): 44 Session Start Time : 1251 Session Stop Time : 1335 Sarah Merchant PT [facility] NoteHNO ID: [id number] Author: SARAH MERCHANT PT Service: ? Author Type: Physical Therapist Type: Progress Notes Filed: 04/18/2024 19:04 Note Text: Episode Visit Count: 18 Therapist That Will Accept/Oversee The Plan Of Care: Marilee Merchant Start of Care Date: 11/15/23 Onset Date: 10/22/23 Plan of Care Certification Date: 04/18/24 Next Certification Due Date: 05/18/24 REHABILITATION AND SPORTS THERAPY PHYSICAL THERAPY PROGRESS REPORT PLAN OF CARE UPDATE: Assessment: Michael Meier demonstrates minimal improvement in rising from a chair, walking, and physical activities. The patient has progressed toward goals. Patient continues to present with impairments in ADL's, balance, gait, independence in exercise, overall function, strength, and symptom management that interfere with walking, walking in the community, physical activities, recreational activities, carrying, heavy exertion . Current prognosis is Fair due to: advanced age, chronic nature of impairments, limited tolerance to activity, clinical presentation . The patient may benefit from continued skilled therapy services to meet the updated goals for this plan of care as noted below. However pt appears to be reaching current rehab potential so will likely DC over the next few weeks. Goals for Episode of Care: created on 11/15/23 [place] in home exercise program. Patient will demonstrate increase in B UE AND LE strength to 4+/5 during manual muscle testing in order to improve function for home management tasks and prior functional tasks. Patient will Improve Timed Up and Go to 12 seconds to demonstrate decreased risk of falling. Patient will improve 5 time sit to stand to demonstrate improvement in functional lower extremity strength. Patient will report no falls. Patient will demonstrate independent and proper use of assisstive device to allow for improved walking quality and safety therefore reducing the risk of falls. Patient Goals: I don't know why I'm here. I guess maybe to strengthen my legs Planned Interventions, Frequency, and Duration: 2x/week (1-2x/wk), Patient to be seen for Therapeutic exercise (37674), Neuromuscular re-education (01255), Therapeutic activities (68444), Self-senior care management (58993), Gait Training (57531), Patient/Family/Caregiver Education, General Conditioning PLAN FOR NEXT VISIT: continue to progress endurance, strength, balance and gait. promote increased mobility/activity at home SUBJECTIVE: reports R thigh pain for the past 3 days, only hurts when she goes to stand up. also having issues with diarrhea the past 3 days. otherwise doing about the same. c/o generalized fatigue. denies any recent falls but still has strength AND balance deficits. still walks with rollator walker at home, takes cane when she goes out. Functional Limitations: walking, walking in the community, physical activities, recreational activities, carrying, heavy exertion Pain: Pain Pain Location: Thigh - Right Frequency: Intermittent, Standing (sit to stand) Worst Pain Level: 8 PROMIS Scales 03/16/2024 01/18/2024 11/25/2023 Higher is Better Phys Func - Score 32 (moderate dysfunction) 33 (moderate dysfunction) 35 (moderate dysfunction) Phys Func - Percentile 4 4 7 Self-Eff Symptom - Score 39 (Low) 44 (Average) 50 (Average) Self-Eff Symptom - Percentile 14 27 50 T-scores: mean of general population = 50. 5 points is clinically meaningfully difference Percentiles provide an indication of how the patient's score ranks in relation to the general population. Higher percentile rankings indicate better function/quality of life. 50th percentile is the average of the general population and indicates half of respondents had a worse score. OBJECTIVE MEASURES WITH LEVEL OF FUNCTION: LE Strength Trunk Strength: ASLR 4+ to 5/5 R Hip Flexion (L2): 5/5 R Hip ABduction: 3+/5 (3+ to 4-/5) R Knee Extension (L3): 5/5 R Ankle Dorsiflexion (L4): 3-/5 L Hip Flexion (L2): 5/5 L Hip ABduction: 2+/5 L Hip ADduction: (2+ to 3-/5) L Knee Extension (L3): 5/5 L Ankle Dorsiflexion (L4): 5/5 Gait Gait: Modified Independent Gait Device: Cane (cane on R) General Deviations/Observations: Jennifer decreased, Step length decreased, Non-functional gait speed Gait Observation: continues to require AD for gait stability d/t strength AND balance deficits TREATMENT: Therapeutic Exercise: 1: Nu-step L2x12' seat 8 2: s/l hip ABd 2#R 20x 3: ankle DF with pink TB 20xL 4: ASLR 2#R/L 20xea 5: HS stretch supine R/L 6: sit to stands from mat table without UE spt 5x2 7: recheck - see objective for details, discussed progress/deficits, plans for PT/DC Skilled Intervention: Patient was educated in proper exercise technique and purpose for exercises. Skilled judgment was used in selection of appropriate interventions. Correct performance of therapeutic exercises was facilitated with verbal a (more content not included)...[facility]12-17-2024 History of Present illness Narrative* Sarah Merchant, PT - 04/18/2024 6:58 PM EST Images from the original note were not included. Episode Visit Count: 18 Therapist That Will Accept/Oversee The Plan Of Care: Marilee Merchant Start of Care Date: 11/15/23 Onset Date: 10/22/23 Plan of Care Certification Date: 04/18/24 Next Certification Due Date: 05/18/24 REHABILITATION AND SPORTS THERAPY PHYSICAL THERAPY PROGRESS REPORT PLAN OF CARE UPDATE: Assessment: Michael Deras Alexandruyuko demonstrates minimal improvement in rising from a chair, walking, and physical activities. The patient has progressed toward goals. Patient continues to present with impairments in ADL's, balance, gait, independence in exercise, overall function, strength, and symptom management th at interfere with walking, walking in the community, physical activities, recreational activities, carrying, heavy exertion . Current prognosis is Fair due to: advanced age, chronic nature of impairments, limited tolerance to activity, clinical presentation . The patient may benefit from continued skilled therapy services to meet the updated goals for this plan of care as noted below. However pt appears to be reaching current rehab potential so will likely DC over the next few weeks. Goals for Episode of Care: created on 11/15/23 [place] in home exercise program. Patient will demonstrate increase in B UE & LE strength to 4+/5 during manual muscle testing in order to improve function for home management tasks and prior functional tasks. Patient will Improve Timed Up and Go to 12 seconds to demonstrate decreased risk of falling. Patient will improve 5 time sit to stand to demonstrate improvement in functional lower extremity strength. Patient will report no falls. Patient will demonstrate independent and proper use of assisstive device to allow for improved walking quality and safety therefore reducing the risk of falls. Patient Goals: I don't know why I'm here. I guess maybe to strengthen my legs Planned Interventions, Frequency, and Duration: 2x/week (1-2x/wk), Patient to be seen for Therapeutic exercise (09805), Neuromuscular re-education (05627), Therapeutic activities (81119), Self-senior care management (72711), Gait Training (37463), Patient/Family/Caregiver Education, General Conditioning PLAN FOR NEXT VISIT: continue to progress endurance, strength, balance and gait. promote increased mobility/activity at home SUBJECTIVE: reports R thigh pain for the past 3 days, only hurts when she goes to stand up. also having issues with diarrhea the past 3 days. otherwise doing about the same. c/o generalized fatigue. denies any recent falls but still has strength & balance deficits. still walks with rollator walker at home, takes cane when she goes out. Functional Limitations: walking, walking in the community, physical activities, recreational activities, carrying, heavy exertion Pain: Pain Pain Location: Thigh - Right Frequency: Intermittent, Standing (sit to stand) Worst Pain Level: 8 PROMIS Scales 03/16/2024 01/18/2024 11/25/2023 Higher is Better Phys Func - Score 32 (moderate dysfunction) 33 (moderate dysfunction) 35 (moderate dysfunction) Phys Func - Percentile 4 4 7 Self-Eff Symptom - Score 39 (Low) 44 (Average) 50 (Average) Self-Eff Symptom - Percentile 14 27 50 T-scores: mean of general population = 50. 5 points is clinically meaningfully difference Percentiles provide an indication of how the patient's score ranks in relation to the general population. Higher percentile rankings indicate better function/quality of life. 50th percentile is the average of the general population and indicates half of respondents had a worse score. OBJECTIVE MEASURES WITH LEVEL OF FUNCTION: LE Strength Trunk Strength: ASLR 4+ to 5/5 R Hip Flexion (L2): 5/5 R Hip ABduction: 3+/5 (3+ to 4-/5) R Knee Extension (L3): 5/5 R Ankle Dorsiflexion (L4): 3-/5 L Hip Flexion (L2): 5/5 L Hip ABduction: 2+/5 L Hip ADduction: (2+ to 3-/5) L Knee Extension (L3): 5/5 L Ankle Dorsiflexion (L4): 5/5 Gait Gait: Modified Independent Gait Device: Cane (cane on R) General Deviations/Observations: Jennifer decreased, Step length decreased, Non- functional gait speed Gait Observation: continues to require AD for gait stability d/t strength & balance deficits TREATMENT: Therapeutic Exercise: 1: Nu-step L2x12' seat 8 2: s/l hip ABd 2#R 20x 3: ankle DF with pink TB 20xL 4: ASLR 2#R/L 20xea 5: HS stretch supine R/L 6: sit to stands from mat table without UE spt 5x2 7: recheck - see objective for details, discussed progress/deficits, plans for PT/DC Skilled Intervention: Patient was educated in proper exercise technique and purpose for exercises. Skilled judgment was used in selection of appropriate interventions. Correct performance of therapeutic exercises was facilitated with verbal and visual cuing. Education in use of heat and ice and parameters for each. Educated patient on rationale for performing exercises in regards to decreasing fatigue , improvingfitness, including balance, and increase ease of ADL. Patient education as noted. PT in constant attendance during use of Nu-step to review current status, monitor effort throughoutactivity and adjust set up as needed for maximum therapeutic benefit. Manual Therapy: 1: STM/IASTM to R quad in supine Skilled Intervention: Manual skills to improve joint mobility, ROM, and decrease pain. Utilized anatomy knowledge of the therapist, and assessment of patient's response to intervention. Billing Therapeutic Exercise Treatment Minutes: 39 Manual TherapyTreatment Minutes: 5 Skilled Treatment Time Minutes (timed and untimed codes): 44 Total Session Time (minutes): 44 Session Start Time : 1336 Session Stop Time : 1420 Sarah Merchant PT documented [facility] this [facility]12-[facility]24 History of Present illness Narrative* Sharon Jarrett APRN.HATCHERY MAN - 04/10/2024 4:00 PM EST FOLLOW UP VISIT - ENDOSCOPY Michael Meier 1940 [id number] REFERRING PHYSICIAN: No referring provider defined for this encounter. Michael Meier is a patient I am following for epigastric pain. Dr. De León performed upper endoscopy on 03/31/24. The patient was found to have Impression: - 3 cm hiatal hernia. - Z-line regular, 37 cm from the incisors. Biopsied. - Gastritis, characterized by congestion (edema), erosions, erythema and linear erosions. Biopsied. - Normal examined duodenum. Biopsied. Pathology demonstrated: FINAL DIAGNOSIS A. Small bowel, duodenum, biopsy: - Small bowel mucosa with no significant diagnostic alterations. B. Stomach, biopsy: - Chronic inactive gastritis. - No morphologic evidence of Helicobacter pylori organisms. C. Esophagus, distal, biopsy: - Squamous esophageal mucosa with no significant diagnostic alterations. D. Esophagus, mid, biopsy: - Squamous esophageal mucosa with no significant diagnostic alterations. AEB/kr 04/04/2024 The patient notes some increased belching and stomach irritation with things like coffee or citrus foods since the procedure. She notes drinking 1 cup of coffee and the rest decaf- she also has been drinking celsius energy drinks. She does note increased stress. She has carafate at home and uses itPRN with relief. VITALS: There were no vitals taken for this visit. General: patient is alert, cooperative, pleasant and in no acute distress On examination, the abdomen is benign. Assessment ASSESSMENT/PLAN: 1. Other gastritis without bleeding - ICD9: 535.40, ICD10: K29.60 - Work on lifestyle factors that aggravate gastritis - Avoid NSIADs, laying down within 3 hours after eating, eat smaller meals - Begin Omeprazole 20mg daily for 3 mos - May use carafate The operative findings and pathology report were reviewed with the patient, and the patient has hadthe opportunity to ask questions and have questions answered. If the patient notes any problems or changes in bowel function, the patient should contact me immediately. Otherwise I recommend follow up endoscopy as symptoms dictate. HM updated and recall letter generated. Discussed treatment plan and patient voices understanding. Patient's questions answered appropriately. Medications and potential side effects were discussed and patient voices understanding. Return to the office as scheduled or as needed for worsening/no improvement. Sharon Jarrett APRN.HATCHERY MAN documented in [facility]12-[facility]24 NoteHNO ID: [id number] Author: SHARON JARRETT APRN.CNP Service: ? Author Type: Nurse Practitioner Type: Progress Notes Filed: 04/10/2024 16:04 Note Text: FOLLOW UP VISIT - ENDOSCOPY Michael Meier 1940 [id number] REFERRING PHYSICIAN: No referring provider defined for this encounter. Michael Meier is a patient I am following for epigastric pain. Dr. De León performed upper endoscopy on 03/31/24. The patient was found to have Impression: - 3 cm hiatal hernia. - Z-line regular, 37 cm from the incisors. Biopsied. - Gastritis, characterized by congestion (edema), erosions, erythema and linear erosions. Biopsied. - Normal examined duodenum. Biopsied. Pathology demonstrated: FINAL DIAGNOSIS A. Small bowel, duodenum, biopsy: - Small bowel mucosa with no significant diagnostic alterations. B. Stomach, biopsy: - Chronic inactive gastritis. - No morphologic evidence of Helicobacter pylori organisms. C. Esophagus, distal, biopsy: - Squamous esophageal mucosa with no significant diagnostic alterations. D. Esophagus, mid, biopsy: - Squamous esophageal mucosa with no significant diagnostic alterations. AEB/kr 04/04/2024 The patient notes some increased belching and stomach irritation with things like coffee or citrus foods since the procedure. She notes drinking 1 cup of coffee and the rest decaf- she also has been drinking celsius energy drinks. She does note increased stress. She has carafate at home and uses it PRN with relief. VITALS: There were no vitals taken for this visit. General: patient is alert, cooperative, pleasant and in no acute distress On examination, the abdomen is benign. Assessment ASSESSMENT/PLAN: 1. Other gastritis without bleeding - ICD9: 535.40, ICD10: K29.60 - Work on lifestyle factors that aggravate gastritis - Avoid NSIADs, laying down within 3 hours after eating, eat smaller meals - Begin Omeprazole 20mg daily for 3 mos - May use carafate The operative findings and pathology report were reviewed with the patient, and the patient has had the opportunity to ask questions and have questions answered. If the patient notes any problems or changes in bowel function, the patient should contact me immediately. Otherwise I recommend follow up endoscopy as symptoms dictate. HM updated and recall letter generated. Discussed treatment plan and patient voices understanding. Patient's questions answered appropriately. Medications and potential side effects were discussed and patient voices understanding. Return to the office as scheduled or as needed for worsening/no improvement. Sharon Jarrett APRN.[facility]11-29-2024 History and physical note* Raymundo De León MD - 03/31/2024 11:15 AM EST HISTORY AND PHYSICAL Michael Meier : 1940 REFERRING PHYSICIAN: Michael Puga [address] [facility] [id number] CHIEF COMPLAINT: Patient presents with: Consult: EGD consultation, epigastric abdominal pain. HPI: Michael is a 83 year old female referred for endoscopy. Michael notes increasing in epigastric pain. Michael notes occasional heartburn. -Notes belching even without eating Epigastric pain triggered by coffee, lettuce, broccoli, tomato based, citrus fruits -gets relief with Carafate PRN -not currently on PPI Michael denies dysphagia. Michael denies a history of ulcers/ peptic ulcer disease. Michael denies family history of gastric issues. Michael follows with [facility]. Last OV 02/2024- she has had an increased in SOB with exertion. Updated ECHO with EF of 60%. Pulmonary artery systolic pressure 66 mmHg. 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 Also hx of A. Fib. Exertional SOB- states it has become worse after having pneumonia with hospitalization in October. Requested wheelchair for use with long distances but was denied. Referred today after walking into the office she needed to use Albuterol inhaler. Michael has undergone prior endoscopy. Last EGD was 01/[address] De León at [facility] Sedation:Midazolam 4 mg IV, Fentanyl 100 micrograms IV, Benzocaine spray, Ondansetron 4 mg IV Impression: - Z-line regular, 34 cm from the incisors. Biopsied. - Gastritis. Biopsied. - Normal examined duodenum. No specimens collected. FINAL DIAGNOSIS A. Stomach, antrum, biopsy: - Antral type gastric mucosa with changes of mild inactive chronic gastritis. - An H. pylori immunohistochemical stain will be performed and reported as an addendum. B. Esophagus, distal, biopsy: - Squamous mucosa with no diagnostic abnormalities. - No prominence in eosinophils or lymphocytes and no intestinal metaplasia. CURRENT MEDICATIONS Current Outpatient Medications Medication Sig cyanocobalamin (VITAMIN B-12) 1,000 mcg tab Take 1,000 mcg by mouth once daily. spironolactone (ALDACTONE) 25 mg tablet Take 25 mg by mouth once daily. hydrALAZINE (APRESOLINE) 25 mg tablet Take 25 mg by mouth once daily. albuterol HFA (PROVENTIL HFA, VENTOLIN HFA) 90 mcg/actuation inhaler Inhale 2 Puffs as instructed every 4 hours as needed. LORazepam (ATIVAN) 0.5 mg Take 1 tablet by mouth two times a day as needed (anxiety attack). meloxicam (MOBIC) 15 mg tablet Take 1 tablet by mouth once daily. Take with food. fluticasone (FLOVENT) 110 mcg/actuation inhaler Inhale 1 Puff as instructed two times a day. Shake well before use. Rinse mouth after use. levothyroxine (SYNTHROID) 50 mcg tablet Take 1 tablet by mouth daily before breakfast. In the morning, Take on empty stomach at least 30 min before eating. For thyroid. PARoxetine (PAXIL) 20 mg tablet Take 1 tablet by mouth once daily. In the evening guaiFENesin (MUCINEX) 600 mg 12 hr tablet Take 1 tablet by mouth two times a day as needed for cold/allergy symptoms. RESTASIS 0.05 % ophthalmic emulsion Azelastine HCl (OPTIVAR) 0.05 % ophthalmic solution sucralfate (CARAFATE) 100 mg/mL suspension Take 10 mL by mouth four times daily. aspirin, enteric coated (ASPIRIN, ENTERIC COATED) 81 mg EC tablet Take 81 mg by mouth once daily. PACERONE 200 mg tablet Take 200 mg by mouth once daily. ubidecarenone (COQ-10 ORAL) Take by mouth. diltiazem CD (CARDIZEM CD) 240 mg 24 hr capsule Take 1 capsule by mouth once daily. losartan (COZAAR) 100 mg tablet Take 1 tablet by mouth once daily. rosuvastatin (CRESTOR) 10 mg tablet Take 1 tablet by mouth daily at bedtime. No current facility-administered medications for this visit. ALLERGIES: Ciprofloxacin, Demerol [Meperidine (Pf)], Opioids - Morphine Analogues, Opioids-Meperidine And Related, Penicillin G, Pravachol [Pravastatin Sodium], Sulfa (Sulfonamide Antibiotics), Vicodin [Hydrocodone-Acetaminophen], and Zithromax [Azithromycin] PAST MEDICAL HISTORY PAST MEDICAL HISTORY Diagnosis Date A-fib (HCC) Allergic rhinitis, cause unspecified Arrhythmia Arthritis Greater trochanteric bursitis of left hip Melanoma of skin, site unspecified 2003 back Osteoarthritis of left hip Other and unspecified hyperlipidemia Pulmonary hypertension (HCC) Situational mixed anxiety and depressive disorder Sleep apnea Stroke (HCC) Unspecified essential hypertension Unspecified gastritis and gastroduodenitis PAST SURGICAL HISTORY PAST SURGICAL HISTORY Procedure Laterality Date ABDOMINAL SURGERY HX APPENDECTOMY HX ARTHRP ACETBLR/PROX FEM PROSTC AGRFT/ALGRFT 12/09/2003 right hip, redone, 07/2004 ARTHRP ACETBLR/PROX FEM PROSTC AGRFT/ALGRFT Left 07/2016 ARTHRP KNE CONDYLE&PLATU MEDIAL&LAT COMPARTMENTS 11/15/2009 Knee replacement, total -Left - [facility] ARTHRP KNE CONDYLE&PLATU MEDIAL&LAT COMPARTMENTS 12/30/2009 Right knee replaced COLONOSCOPY FLX DX W/COLLJ SPEC WHEN PFRMD 06/29/2017 Colonoscopy EGD 10/17/2020 EGD W/O [facility] SPEC VARICIES INJ 01/08/2022 ESOPHAGOGASTRODUODENOSCOPY TRANSORAL DIAGNOSTIC 11/29/2000 EGD ESOPHAGOGASTRODUODENOSCOPY TRANSORAL DIAGNOSTIC 06/29/2017 EGD JOINT REPLACEMENT HX LAPS SURG CHOLECYSTECTOMY W/CHOLANGIOGRAPHY PACEMAKER IMPLANT 01/2011 SKIN BIOPSY HX TONSILLECTOMY HX TOTAL ABDOMINAL HYSTERECT W/WO RMVL TUBE OVARY Hysterectomy, GAL FAMILY HISTORY FAMILY HISTORY Problem Relation Age of Onset Coronary Artery Disease Mother other (cardiac arrest) Mother Coronary Artery Disease Father Diabetes Father other (congestive heart failure) Father SOCIAL HISTORY Social History Tobacco Use Smoking status: Never Smokeless tobacco: Never Vaping Use Vaping status: Never Used Substance Use Topics Alcohol use: Not Currently Comment: rarely Drug use: No REVIEW OF SYMPTOMS: REVIEW OF SYSTEMS: General: The patient + fatigue, denies weight loss, + weight gain, denies feeling hot, and feelingsof cold. Eyes: The patient denies glaucoma, + eye injury/surgery, + glasses or contacts. Ear/Nose/Throat: The patient denies allergies, denies hayfever, denies ear infections, and denies bloody noses. Cardiovascular: The patient denies chest pain, denies heart disease, + high blood pressure, + high cholesterol, and denies poor circulation. Respiratory: The patient denies tuberculosis, + pneumonia, denies frequent cough, + shortness of breath, and denies coughing up blood. Gastrointestinal: The patient denies difficulty swallowing, + acid reflux, denies ulcers, denies jaundice/hepatitis, + gallbladder problems, denies vomiting, denies black or tarry stools, + hemorrhoids, + bleeding from rectum, + diverticulitis, denies constipation, denies diarrhea, denies loss of stool control, and denies hernias. Kidney/Bladder: The patient denies kidney stones, + urine infections, and denies bloody urine. Skin: The patient + a history of skin cancer, denies bleeding/changing moles, and denies a history of skin rash. Neurologic: The patient denies a history of epilepsy/convulsions, denies headaches, denies head/spinal injuries, and denies stroke/+TIA. Psychiatric: The patient denies psychiatric medications, + depression, and denies voices. Endocrine: The patient + thyroid disorders, denies diabetes, and denies hormonal problems. Hematologic: The patient denies a history of bruising, denies bleeding, and denies anemia. Infections: The patient + a history of measles and mumps, denies rheumatic fever, and denies sexually transmitted diseases. Musculoskeletal: The patient + back pain/injury, + back problems, + sciatica, denies knee/foot trouble, + arthritis, or denies gout. PHYSICAL EXAMINATION: General: The patient is 83 year old, female well nourished, well hydrated in no acute distress. Thepatient is oriented to time, place, and person. VITALS: Blood pressure 184/75, pulse 71, temperature 36.4 C (97.5 F), height 165.1 cm (5' 5), weight 105 kg (231 lb 6.4 oz), SpO2 93%. Body mass index is 38.51 kg/m . HEENT: Normal cephalic, ataumatic, pupils are equally round, sclera are anicteric, mucous membranesare moist, oropharynx is clear. Neck has no masses, asymmetry or lymphadenopathy. Respiratory: Clear to auscultation and percussion. Normal respiratory excursion and pattern. Cardiac: Examination is regular rate and rhythm. Normal S1/S2 Abdominal exam: Soft, nontender, with no palpable masses. No hepatosplenomegaly. No palpable hernias. Extremities: no clubbing, cyanosis or edema. No adenopathy. LABORATORY VALUES: As Noted RADIOLOGIC STUDIES: As Noted Assessment IMPRESSION: epigastric pain PLAN: I have reviewed my findings with the surgeon. Will plan for upper endoscopy. We discussed therisks and benefits of the planned endoscopy. I have informed the patient that complications can occur including failure to complete the endoscopy and perforation. Michael had the opportunity to ask questions concerning the planned endoscopy. My staff has also explained the procedure to the patient inunderstandable terms and has given the patient printed material concerning the procedure. Michael freely consents to surgery. I have explained to the patient the difference between IV conscious sedation and MAC anesthesia - and I have offered either, according to the patient's wishes. I have explained that with IV conscioussedation there is no anesthesia provider available and therefore there is a limitation of the amount of IV medications that can be given and that the patient may wake up in the middle of the procedure and/or experience pain/discomfort during the procedure. Further discussion was done and the patient was given the opportunity to ask questions and all questions were answered. MAC anesthesia with PACC d/t pulmonary HTN & worsening SOB. Michael was counseled that if there are changes in his/her medical condition, to let the office know if surgery should proceed. If there are changes in patient's medical condition from time of this encounter to the day of the procedure that preclude anesthesia, patient may have procedure cancelled for patient's safety. Diagnoses: (R10.13) Epigastric abdominal pain (primary encounter diagnosis) (I27.20) Pulmonary hypertension (HCC) Consultation requested by Dr. Puga for an opinion regarding epigastric pain. My final recommendations will be communicated back to the requesting physician by way of shared Medical record or letter to requesting physician via US mail. Portions of this documentation were copied and pasted from previous office visit notes in order to provide a cohesive continuity of the history. The note has been reviewed and edited and updated as necessary. Sharonsailaja Jarrett APRN.HATCHERY MAN UPDATED HISTORY AND PHYSICAL EXAMINATION SERVICE DATE: 03/31/2024 SERVICE TIME: 10:46 AM SENSITIVE EXAMINATION CONSENT: The sensitive examination was discussed with the Patient or Patient's Authorized Senior Sales Operations Manager. Asapplicable, any other physician, advance practice provider, medical student, or other health professional student that will be observing or involved in the sensitive examination for educational or training purposes was discussed with the Patient or Authorized Senior Sales Operations Manager. The Patient or Authorized Senior Sales Operations Manager has agreed to proceed with the sensitive examination. (Sensitive examination includes inspection and/or palpation of the breasts, pelvis, prostate and anorectal regions) PHYSICAL EXAM MUST BE COMPLETED ON ADMISSION The History and Physical (completed in the past 30 days) has been reviewed and the patient has beenexamined. The contents accurately reflect the patient's condition with the following additions or revisions since the H&P was completed. Examination indicates no changes. This H&P can be found in the attached. SIGNATURE: Raymundo De León III, MD PATIENT NAME: Michael Meier DATE: March 31, 2024 TIME: 10:46 AM [facility]11-29-2024 History and physical note* Raymundo De León MD - 03/31/2024 11:15 AM EST HISTORY AND PHYSICAL Michael Meier : 1940 REFERRING PHYSICIAN: Michael Puga [address] [facility] [address] CHIEF COMPLAINT: Patient presents with: Consult: EGD consultation, epigastric abdominal pain. HPI: Michael is a 83 year old female referred for endoscopy. Michael notes increasing in epigastric pain. Michael notes occasional heartburn. -Notes belching even without eating Epigastric pain triggered by coffee, lettuce, broccoli, tomato based, citrus fruits -gets relief with Carafate PRN -not currently on PPI Michael denies dysphagia. Michael denies a history of ulcers/ peptic ulcer disease. Michael denies family history of gastric issues. Michael follows with [facility]. Last OV 02/2024- she has had an increased in SOB with exertion. Updated ECHO with EF of 60%. Pulmonary artery systolic pressure 66 mmHg. 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 Also hx of A. Fib. Exertional SOB- states it has become worse after having pneumonia with hospitalization in October. Requested wheelchair for use with long distances but was denied. Referred today after walking into the office she needed to use Albuterol inhaler. Michael has undergone prior endoscopy. Last EGD was 01/[address] De León at [facility] Sedation:Midazolam 4 mg IV, Fentanyl 100 micrograms IV, Benzocaine spray, Ondansetron 4 mg IV Impression: - Z-line regular, 34 cm from the incisors. Biopsied. - Gastritis. Biopsied. - Normal examined duodenum. No specimens collected. FINAL DIAGNOSIS A. Stomach, antrum, biopsy: - Antral type gastric mucosa with changes of mild inactive chronic gastritis. - An H. pylori immunohistochemical stain will be performed and reported as an addendum. B. Esophagus, distal, biopsy: - Squamous mucosa with no diagnostic abnormalities. - No prominence in eosinophils or lymphocytes and no intestinal metaplasia. CURRENT MEDICATIONS Current Outpatient Medications Medication Sig cyanocobalamin (VITAMIN B-12) 1,000 mcg tab Take 1,000 mcg by mouth once daily. spironolactone (ALDACTONE) 25 mg tablet Take 25 mg by mouth once daily. hydrALAZINE (APRESOLINE) 25 mg tablet Take 25 mg by mouth once daily. albuterol HFA (PROVENTIL HFA, VENTOLIN HFA) 90 mcg/actuation inhaler Inhale 2 Puffs as instructed every 4 hours as needed. LORazepam (ATIVAN) 0.5 mg Take 1 tablet by mouth two times a day as needed (anxiety attack). meloxicam (MOBIC) 15 mg tablet Take 1 tablet by mouth once daily. Take with food. fluticasone (FLOVENT) 110 mcg/actuation inhaler Inhale 1 Puff as instructed two times a day. Shake well before use. Rinse mouth after use. levothyroxine (SYNTHROID) 50 mcg tablet Take 1 tablet by mouth daily before breakfast. In the morning, Take on empty stomach at least 30 min before eating. For thyroid. PARoxetine (PAXIL) 20 mg tablet Take 1 tablet by mouth once daily. In the evening guaiFENesin (MUCINEX) 600 mg 12 hr tablet Take 1 tablet by mouth two times a day as needed for cold/allergy symptoms. RESTASIS 0.05 % ophthalmic emulsion Azelastine HCl (OPTIVAR) 0.05 % ophthalmic solution sucralfate (CARAFATE) 100 mg/mL suspension Take 10 mL by mouth four times daily. aspirin, enteric coated (ASPIRIN, ENTERIC COATED) 81 mg EC tablet Take 81 mg by mouth once daily. PACERONE 200 mg tablet Take 200 mg by mouth once daily. ubidecarenone (COQ-10 ORAL) Take by mouth. diltiazem CD (CARDIZEM CD) 240 mg 24 hr capsule Take 1 capsule by mouth once daily. losartan (COZAAR) 100 mg tablet Take 1 tablet by mouth once daily. rosuvastatin (CRESTOR) 10 mg tablet Take 1 tablet by mouth daily at bedtime. No current facility-administered medications for this visit. ALLERGIES: Ciprofloxacin, Demerol [Meperidine (Pf)], Opioids - Morphine Analogues, Opioids-Meperidine And Related, Penicillin G, Pravachol [Pravastatin Sodium], Sulfa (Sulfonamide Antibiotics), Vicodin [Hydrocodone-Acetaminophen], and Zithromax [Azithromycin] PAST MEDICAL HISTORY PAST MEDICAL HISTORY Diagnosis Date A-fib (HCC) Allergic rhinitis, cause unspecified Arrhythmia Arthritis Greater trochanteric bursitis of left hip Melanoma of skin, site unspecified 2003 back Osteoarthritis of left hip Other and unspecified hyperlipidemia Pulmonary hypertension (HCC) Situational mixed anxiety and depressive disorder Sleep apnea Stroke (HCC) Unspecified essential hypertension Unspecified gastritis and gastroduodenitis PAST SURGICAL HISTORY PAST SURGICAL HISTORY Procedure Laterality Date ABDOMINAL SURGERY HX APPENDECTOMY HX ARTHRP ACETBLR/PROX FEM PROSTC AGRFT/ALGRFT 12/09/2003 right hip, redone, 07/2004 ARTHRP ACETBLR/PROX FEM PROSTC AGRFT/ALGRFT Left 07/2016 ARTHRP KNE CONDYLE&PLATU MEDIAL&LAT COMPARTMENTS 11/15/2009 Knee replacement, total -Left - [facility] ARTHRP KNE CONDYLE&PLATU MEDIAL&LAT COMPARTMENTS 12/30/2009 Right knee replaced COLONOSCOPY FLX DX W/COLLJ SPEC WHEN PFRMD 06/29/2017 Colonoscopy EGD 10/17/2020 EGD W/O [facility] SPEC VARICIES INJ 01/08/2022 ESOPHAGOGASTRODUODENOSCOPY TRANSORAL DIAGNOSTIC 11/29/2000 EGD ESOPHAGOGASTRODUODENOSCOPY TRANSORAL DIAGNOSTIC 06/29/2017 EGD JOINT REPLACEMENT HX LAPS SURG CHOLECYSTECTOMY W/CHOLANGIOGRAPHY PACEMAKER IMPLANT 01/2011 SKIN BIOPSY HX TONSILLECTOMY HX TOTAL ABDOMINAL HYSTERECT W/WO RMVL TUBE OVARY Hysterectomy, GAL FAMILY HISTORY FAMILY HISTORY Problem Relation Age of Onset Coronary Artery Disease Mother other (cardiac arrest) Mother Coronary Artery Disease Father Diabetes Father other (congestive heart failure) Father SOCIAL HISTORY Social History Tobacco Use Smoking status: Never Smokeless tobacco: Never Vaping Use Vaping status: Never Used Substance Use Topics Alcohol use: Not Currently Comment: rarely Drug use: No REVIEW OF SYMPTOMS: REVIEW OF SYSTEMS: General: The patient + fatigue, denies weight loss, + weight gain, denies feeling hot, and feelingsof cold. Eyes: The patient denies glaucoma, + eye injury/surgery, + glasses or contacts. Ear/Nose/Throat: The patient denies allergies, denies hayfever, denies ear infections, and denies bloody noses. Cardiovascular: The patient denies chest pain, denies heart disease, + high blood pressure, + high cholesterol, and denies poor circulation. Respiratory: The patient denies tuberculosis, + pneumonia, denies frequent cough, + shortness of breath, and denies coughing up blood. Gastrointestinal: The patient denies difficulty swallowing, + acid reflux, denies ulcers, denies jaundice/hepatitis, + gallbladder problems, denies vomiting, denies black or tarry stools, + hemorrhoids, + bleeding from rectum, + diverticulitis, denies constipation, denies diarrhea, denies loss of stool control, and denies hernias. Kidney/Bladder: The patient denies kidney stones, + urine infections, and denies bloody urine. Skin: The patient + a history of skin cancer, denies bleeding/changing moles, and denies a history of skin rash. Neurologic: The patient denies a history of epilepsy/convulsions, denies headaches, denies head/spinal injuries, and denies stroke/+TIA. Psychiatric: The patient denies psychiatric medications, + depression, and denies voices. Endocrine: The patient + thyroid disorders, denies diabetes, and denies hormonal problems. Hematologic: The patient denies a history of bruising, denies bleeding, and denies anemia. Infections: The patient + a history of measles and mumps, denies rheumatic fever, and denies sexually transmitted diseases. Musculoskeletal: The patient + back pain/injury, + back problems, + sciatica, denies knee/foot trouble, + arthritis, or denies gout. PHYSICAL EXAMINATION: General: The patient is 83 year old, female well nourished, well hydrated in no acute distress. Thepatient is oriented to time, place, and person. VITALS: Blood pressure 184/75, pulse 71, temperature 36.4 C (97.5 F), height 165.1 cm (5' 5), weight 105 kg (231 lb 6.4 oz), SpO2 93%. Body mass index is 38.51 kg/m . HEENT: Normal cephalic, ataumatic, pupils are equally round, sclera are anicteric, mucous membranesare moist, oropharynx is clear. Neck has no masses, asymmetry or lymphadenopathy. Respiratory: Clear to auscultation and percussion. Normal respiratory excursion and pattern. Cardiac: Examination is regular rate and rhythm. Normal S1/S2 Abdominal exam: Soft, nontender, with no palpable masses. No hepatosplenomegaly. No palpable hernias. Extremities: no clubbing, cyanosis or edema. No adenopathy. LABORATORY VALUES: As Noted RADIOLOGIC STUDIES: As Noted Assessment IMPRESSION: epigastric pain PLAN: I have reviewed my findings with the surgeon. Will plan for upper endoscopy. We discussed therisks and benefits of the planned endoscopy. I have informed the patient that complications can occur including failure to complete the endoscopy and perforation. Michael had the opportunity to ask questions concerning the planned endoscopy. My staff has also explained the procedure to the patient inunderstandable terms and has given the patient printed material concerning the procedure. Michael freely consents to surgery. I have explained to the patient the difference between IV conscious sedation and MAC anesthesia - and I have offered either, according to the patient's wishes. I have explained that with IV conscioussedation there is no anesthesia provider available and therefore there is a limitation of the amount of IV medications that can be given and that the patient may wake up in the middle of the procedure and/or experience pain/discomfort during the procedure. Further discussion was done and the patient was given the opportunity to ask questions and all questions were answered. MAC anesthesia with PACC d/t pulmonary HTN & worsening SOB. Michael was counseled that if there are changes in his/her medical condition, to let the office know if surgery should proceed. If there are changes in patient's medical condition from time of this encounter to the day of the procedure that preclude anesthesia, patient may have procedure cancelled for patient's safety. Diagnoses: (R10.13) Epigastric abdominal pain (primary encounter diagnosis) (I27.20) Pulmonary hypertension (HCC) Consultation requested by Dr. Puga for an opinion regarding epigastric pain. My final recommendations will be communicated back to the requesting physician by way of shared Medical record or letter to requesting physician via US mail. Portions of this documentation were copied and pasted from previous office visit notes in order to provide a cohesive continuity of the history. The note has been reviewed and edited and updated as necessary. Sharon Jarrett APRN.HATCHERY MAN UPDATED HISTORY AND PHYSICAL EXAMINATION SERVICE DATE: 03/31/2024 SERVICE TIME: 10:46 AM SENSITIVE EXAMINATION CONSENT: The sensitive examination was discussed with the Patient or Patient's Authorized Senior Sales Operations Manager. Asapplicable, any other physician, advance practice provider, medical student, or other health professional student that will be observing or involved in the sensitive examination for educational or training purposes was discussed with the Patient or Authorized Senior Sales Operations Manager. The Patient or Authorized Senior Sales Operations Manager has agreed to proceed with the sensitive examination. (Sensitive examination includes inspection and/or palpation of the breasts, pelvis, prostate and anorectal regions) PHYSICAL EXAM MUST BE COMPLETED ON ADMISSION The History and Physical (completed in the past 30 days) has been reviewed and the patient has beenexamined. The contents accurately reflect the patient's condition with the following additions or revisions since the H&P was completed. Examination indicates no changes. This H&P can be found in the attached. SIGNATURE: Raymundo De León III, MD PATIENT NAME: Michael Meier DATE: March 31, 2024 TIME: 10:46 AM [facility]11[facility] Instructions* Patient Instructions* Mary Foster APRN.HATCHERY MAN - 03/27/2024 2:22 PM EST Images from the original note were not included. [facility] PATIENT PREOPERATIVE INSTRUCTIONS Raymundo De León MD has scheduled you for your procedure at this surgery center: [facility]: [phone] -- [address] [facility] [address]. Please read below carefully for your personalized instructions. Dietary Restrictions: - No solid food after midnight. - You may have 12 ounces of clear liquids (water, clear juices such as apple juice or gatorade, carbonated beverages, clear tea, black coffee, jello) until 2 hours before scheduled arrival at facility. Medications: Unless instructed differently below, stay on all of your medications until your surgery. If you start any new medications after today's visit, please contact your surgeon. Pre-Surgery Med Instructions Medication Instructions cyanocobalamin (VITAMIN B-12) 1,000 mcg tab Stop 7 days before surgery spironolactone (ALDACTONE) 25 mg tablet Do not take the day of surgery hydrALAZINE (APRESOLINE) 25 mg tablet Take the day of surgery with a small sip of water albuterol HFA (PROVENTIL HFA, VENTOLIN HFA) 90 mcg/actuation inhaler IF needed LORazepam (ATIVAN) 0.5 mg IF needed meloxicam (MOBIC) 15 mg tablet Stop 7 days before surgery fluticasone (FLOVENT) 110 mcg/actuation inhaler IF needed levothyroxine (SYNTHROID) 50 mcg tablet Take the day of surgery with a small sip of water PARoxetine (PAXIL) 20 mg tablet Take the day of surgery with a small sip of water rosuvastatin (CRESTOR) 10 mg tablet Take the day of surgery with a small sip of water RESTASIS 0.05 % ophthalmic emulsion Do not take the day of surgery Azelastine HCl (OPTIVAR) 0.05 % ophthalmic solution Take the day of surgery with a small sip of water sucralfate (CARAFATE) 100 mg/mL suspension Do not take the day of surgery aspirin, enteric coated (ASPIRIN, ENTERIC COATED) 81 mg EC tablet Stop 7 days before surgery PACERONE 200 mg tablet Take the day of surgery with a small sip of water ubidecarenone (COQ-10 ORAL) Stop 7 days before surgery diltiazem CD (CARDIZEM CD) 240 mg 24 hr capsule Take the day of surgery with a small sip of water losartan (COZAAR) 100 mg tablet Do not take the day of surgery If you start any new medications after today's visit, please contact the surgeon's office. If you are currently using a dakp-shu-adxw injectable or oral medication for diabetes or weight loss such as Dulaglutide (Trulicity), Exenatide (Byetta, Bydureon), Liraglutide (Victoza, Saxenda), Semaglutide (Ozempic, Wegovy, Rybelsus), or Tirzepatide (Mounjaro), the medicine should be stopped at least 7 days before surgery. These medicines can cause food to remain in your stomach for a very longtime and increase the risks from surgery and anesthesia. Not stopping the medication for a long enough time may result in your surgery being rescheduled. Blood Thinning Medications: - Stop NSAIDS (Ibuprofen, Advil, Aleve, Motrin, Celebrex, Mobic, etc.) 7 days before surgery, as directed by your surgeon. - Stop Aspirin 7 days before surgery, as directed by your surgeon. - Stop ALL herbal and dietary supplements 7 days before surgery. - You may take Tylenol (Acetaminophen) or any of your pain medications that do not contain aspirin or NSAIDS as needed. Important Reminders: - Candy, mints, and tobacco products are NOT permitted the morning of surgery. - Hearing aids, dentures and glasses may be worn the morning of surgery. - NO jewelry, body piercings, makeup, hairpins or contacts are to be worn the day of surgery. If you develop symptoms such as a fever, cold, or flu, or have other changes to your health within TWO DAYS of scheduled surgery or the morning of surgery, please contact the surgery center above. Personal Belongings: -Please have photo ID and insurance cards. -If you do not have a copy of advance directives on file with us, please bring a copy with you on the day of surgery. - Leave ALL valuables and money at home or with family members. For Outpatient Procedures: - YOU MUST HAVE A RESPONSIBLE RENTAL CLERK TAKE YOU HOME. A BLOW PIT OPERATOR OR ICU RN CANNOT BE MADE A RESPONSIBLE RENTAL CLERK. - We recommend that a responsible person stays with you overnight to take care of you. - You cannot stay in a hotel alone after outpatient surgery. You will not be permitted to have yoursurgery, if you do not have someone to take care of you. Arrival Time for Surgery: - The Surgery Center or hospital where you are having surgery will call the afternoon before surgery (or Wednesday for Wednesday surgery) with a scheduled arrival time. - If you have not heard by 4 pm, please contact the surgery center above. Please be aware that emergency situations arise, which may delay or change your surgical time. If this happens, we will notify you as soon as possible and regret any inconvenience. If you already have an Advance Directive, please fax a copy to [phone] or email to for it to be added to your chart. If you do not have an Advance Directive, you can find the appropriate form and more information at [email or web address]. We recommend that youcomplete the Advance Directive form found on the website and bring it with you the day of your surgery. It can be witnessed and scanned into your chart that day. Mary Foster APRN.CNP documented in this encounterMi[facility]11-[facility]24 History and physical note * Mary Foster APRN.CNP - 03/27/2024 2:20 PM EST Images from the original note were not included. [facility] HISTORY AND PHYSICAL EXAMINATION SERVICE DATE: 03/27/2024 SERVICE TIME: 6:43 AM PRIMARY CARE PHYSICIAN: Michael Puga DO Assessment Patient has the following medical conditions which may affect wilmar-operative course: JOSE on CPAP Assessment: c/w CPAP Obstructive lung disease (HCC) Assessment: rx as needed 12/2022 PFT's IMPRESSION: Spirometry is normal. The increase in FEF 25-75 post-bronchodilator reflects an improvement in the small airway obstruction. Primary hypertension Assessment: controlled on rx Hyperlipidemia Assessment: c/w statin 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 Last interrogation scanned into chart from 01/28/24 A-fib (HCC) Assessment: paroxymal, following [facility], daily ASA therapy Pulmonary hypertension (HCC) Assessment: moderate, RSVP 66mmHg 02/02/24 TIA (transient ischemic attack) Assessment: hx 2018, daily ASA Disorder of carotid artery (HCC) Assessment: following cardiology, only documentation found in epic states 0-29% bilaterally from 2010 Situational mixed anxiety and depressive disorder Assessment: stable on rx per pt Subclinical hypothyroidism Assessment: stable on rx Hypokalemia Assessment: taking diuretics Potassium Date Value Ref Range Status 11/25/2023 3.8 3.7 - 5.1 mmol/L Final 03/31/2023 3.3 (L) 3.7 - 5.1 mmol/L Final 12/15/2022 3.8 3.7 - 5.1 mmol/L Final Iron deficiency anemia Assessment: hx Hemoglobin (g/dL) Date Value 11/25/2023 13.7 10/29/2020 13.6 Hematocrit (%) Date Value 11/25/2023 43.0 10/29/2020 41.0 WBC (k/uL) Date Value 11/25/2023 7.65 10/29/2020 6.43 Personal history of malignant melanoma of skin Assessment: s/p excision IFG (impaired fasting glucose) Assessment: Hemoglobin A1C (%) Date Value 11/25/2023 5.0 01/16/2021 5.3 Arthritis, multiple joint involvement Assessment: hx bilateral TKA and KENN BMI 38.0-38.9,adult Assessment: Body mass index is 38.27 kg/m . GERD (gastroesophageal reflux disease) Assessment: otc rx as needed Keith Activity Status Index: METS: DASI Score: 0 Patient denies any chest pain or undue shortness of breath with the above physical activity. Clinical Frailty Scale: 4. Apparently vulnerable STOP-Bang Score: BMI greater than 35 kg/m^2 Patient over 50 years old Denies snoring loudly Denies feeling tired, fatigued, or sleepy during the daytime Has not been observed to stop breathing or choking/gasping during sleep Denies having high blood pressure Does not have a large neck Non-male patient STOP-Bang Score: 2 [id number] Score: Age: >=75 Sex: female CHF history: No Hypertension history: Yes Stroke/TIA/thromboembolism history: Yes Vascular disease history: No Diabetes history: No [id number] Score: 6 ARISCAT Score: Age: >80 Preoperative SpO2: 91-95% Respiratory infection in the last month: No Preoperative anemia: No Surgical incision: peripheral Duration of surgery: <2 hrs Emergency procedure: No ARISCAT Score: 24 ANESTHESIA FINDINGS: Intubation History: No history of difficult intubation Significant Anesthesia Considerations: none Airway History: No history of difficult airway I - PHYSICAL EVALUATION AIRWAY Patient intubated: No. Tracheostomy tube not present Mallampati: III. TM distance: >3 FB. Neck ROM: full ROM without neurological symptoms. Mouth opening: adequate. Short neck: no. Thick neck: no Romero present: no Lip Bite Test: I Microretrognathia/Micronagthia/Recessed Chin: No DENTAL Dentures, upper: partial. Dentures, lower: partial. II - ANESTHESIA PLAN Anesthetic Plan: other Beta Tenzin Monitoring Plan Post Procedure Analgesic Plan Prepared for Surgery: optimally prepared for surgery, pending [see comment]. CONSULTS: Patient does not require consults for optimization at this time Planned Anesthetic: other anesthesia choice The Following Tests/Procedures Have Been Initiated: No orders of the defined types were placed in this encounter. REASON FOR VISIT: Michael Meier is a 83 year old female who is scheduled for colonoscopy at [facility] of Dr. Raymundo De León for consultation. My final recommendation will be communicated backto the requesting physician by way of shared medical record or letter. Subjective The patient has the following: COVID-19 Immunization Status Overdue - Covid-19 Vaccine ( season) Overdue since 01/02/2024 10/14/2023 Postponed until 10/13/2024 by Marisol Cano LPN (Declined at this time) 04/05/2023 Imm Admin: COVID-19 vaccine, age 12+ yr ([employer] [facility]) 06/04/2022 Postponed until 06/04/2023 by Marisol Cano LPN (Declined at this time) Only the first 3 history entries have been loaded, but more history exists. CHIEF COMPLAINT: Pre-op exam HPI: Michael Meier is a 83 year old seen for PAC due to scheduled above surgery because of epigastric pain. 03/13/2024, Sharon Jarrett CNP HPI: Michael is a 83 year old female referred for endoscopy. Michael notes increasing in epigastric pain. Michael notes occasional heartburn. -Notes belching even without eating Epigastric pain triggered by coffee, lettuce, broccoli, tomato based, citrus fruits -gets relief with Carafate PRN -not currently on PPI Michael denies dysphagia. Michael denies a history of ulcers/ peptic ulcer disease. Michael denies family history of gastric issues. Michael follows with [facility]. Last OV 02/2024- she has had an increased in SOB with exertion. Updated ECHO with EF of 60%. Pulmonary artery systolic pressure 66 mmHg. 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 Also hx of A. Fib. Exertional SOB- states it has become worse after having pneumonia with hospitalization in October. Requested wheelchair for use with long distances but was denied. Referred today after walking into the office she needed to use Albuterol inhaler. Michael has undergone prior endoscopy. Last EGD was 01/[address] De León at [facility] Sedation:Midazolam 4 mg IV, Fentanyl 100 micrograms IV, Benzocaine spray, Ondansetron 4 mg IV Impression: - Z-line regular, 34 cm from the incisors. Biopsied. - Gastritis. Biopsied. - Normal examined duodenum. No specimens collected. FINAL DIAGNOSIS A. Stomach, antrum, biopsy: - Antral type gastric mucosa with changes of mild inactive chronic gastritis. - An H. pylori immunohistochemical stain will be performed and reported as an addendum. B. Esophagus, distal, biopsy: - Squamous mucosa with no diagnostic abnormalities. - No prominence in eosinophils or lymphocytes and no intestinal metaplasia. REVIEW OF SYSTEMS: General: No weight loss, malaise or fevers. Neurological: Positive for: strokes. Respiratory: Positive for: COPD, obstructive sleep apnea and CPAP/BiPAP compliant. Negative for: asthma, pneumonia within 6 weeks, tobacco use and URI < 2 weeks. Cardiovascular: +pulmonary HTN +carotid artery stenosis Positive for: AICD/PPM, anticoagulation therapy (ASA), atrial fibrillation, chest pain, hyperlipidemia (on rx), hypertension (on rx) and murmur/valvular heart disease Negative for: arrhythmia, CAD, CHF, congenital heart defect, DVT/PE, recent NM, open heart surgery and valve surgery. GI: Positive for: GERD (on rx) Negative for: abdominal pain, dysphagia, hepatitis, irritable bowel syndrome, inflammatory bowel disease, liver disease, nausea, vomiting and ETOH >2 drinks/day. : No history of dysuria, frequency or incontinence, stones or chronic kidney disease. No difficulty urinating, nocturia > 1 time per night or hematuria. 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 Endocrine: Positive for: hypothyroidism (on rx). Negative for: diabetes mellitus. Hematology: Positive for: bruises/bleeds easily and chronic anti-coagulation/platelet meds. Patient is on anti-coagulation/platelet medication(s): Aspirin. Negative for: anemia and transfusion of at least 4 units within 72 hours prior to surgery. Oncology: +melanoma s/p excision Psych: Positive for: anxiety (on rx) and depression (on rx). Negative for: Marijuana Use. Musculoskeletal: +bilateral TKA and KENN Positive for: back pain and joint pain. Skin: psorasis Implanted Devices: Has implanted device Implants: PPM. PAST MEDICAL HISTORY Diagnosis Date A-fib (HCC) Allergic rhinitis, cause unspecified Arrhythmia Arthritis Greater trochanteric bursitis of left hip Melanoma of skin, site unspecified 2003 back Osteoarthritis of left hip Other and unspecified hyperlipidemia Pulmonary hypertension (HCC) Situational mixed anxiety and depressive disorder Sleep apnea Stroke (HCC) Unspecified essential hypertension Unspecified gastritis and gastroduodenitis PAST SURGICAL HISTORY Procedure Laterality Date ABDOMINAL SURGERY HX APPENDECTOMY HX ARTHRP ACETBLR/PROX FEM PROSTC AGRFT/ALGRFT 12/09/2003 right hip, redone, 07/2004 ARTHRP ACETBLR/PROX FEM PROSTC AGRFT/ALGRFT Left 07/2016 ARTHRP KNE CONDYLE&PLATU MEDIAL&LAT COMPARTMENTS 11/15/2009 Knee replacement, total -Left - [facility] ARTHRP KNE CONDYLE&PLATU MEDIAL&LAT COMPARTMENTS 12/30/2009 Right knee replaced COLONOSCOPY FLX DX W/COLLJ SPEC WHEN PFRMD 06/29/2017 Colonoscopy EGD 10/17/2020 EGD W/O [facility] SPEC VARICIES INJ 01/08/2022 ESOPHAGOGASTRODUODENOSCOPY TRANSORAL DIAGNOSTIC 11/29/2000 EGD ESOPHAGOGASTRODUODENOSCOPY TRANSORAL DIAGNOSTIC 06/29/2017 EGD JOINT REPLACEMENT HX LAPS SURG CHOLECYSTECTOMY W/CHOLANGIOGRAPHY PACEMAKER IMPLANT 01/2011 SKIN BIOPSY HX TONSILLECTOMY HX TOTAL ABDOMINAL HYSTERECT W/WO RMVL TUBE OVARY Hysterectomy, GAL FAMILY HISTORY Problem Relation Age of Onset Coronary Artery Disease Mother other (cardiac arrest) Mother Coronary Artery Disease Father Diabetes Father other (congestive heart failure) Father Social History Tobacco Use Smoking status: Never Smokeless tobacco: Never Vaping Use Vaping status: Never Used Substance Use Topics Alcohol use: Not Currently Comment: rarely Drug use: No Prior to Admission medications as of 03/27/24 1423 Medication Sig Last Dose Taking cyanocobalamin (VITAMIN B-12) 1,000 mcg tab Take 1,000 mcg by mouth once daily. Taking Yes spironolactone (ALDACTONE) 25 mg tablet Take 25 mg by mouth once daily. Taking Yes hydrALAZINE (APRESOLINE) 25 mg tablet Take 25 mg by mouth once daily. Taking Yes albuterol HFA (PROVENTIL HFA, VENTOLIN HFA) 90 mcg/actuation inhaler Inhale 2 Puffs as instructed every 4 hours as needed. Taking Yes LORazepam (ATIVAN) 0.5 mg Take 1 tablet by mouth two times a day as needed (anxiety attack). TakingYes meloxicam (MOBIC) 15 mg tablet Take 1 tablet by mouth once daily. Take with food. Taking Yes fluticasone (FLOVENT) 110 mcg/actuation inhaler Inhale 1 Puff as instructed two times a day. Shake well before use. Rinse mouth after use. Taking Yes levothyroxine (SYNTHROID) 50 mcg tablet Take 1 tablet by mouth daily before breakfast. In the morning, Take on empty stomach at least 30 min before eating. For thyroid. Taking Yes PARoxetine (PAXIL) 20 mg tablet Take 1 tablet by mouth once daily. In the evening Taking Yes rosuvastatin (CRESTOR) 10 mg tablet Take 1 tablet by mouth daily at bedtime. Taking Yes RESTASIS 0.05 % ophthalmic emulsion Taking Yes Azelastine HCl (OPTIVAR) 0.05 % ophthalmic solution Taking Yes sucralfate (CARAFATE) 100 mg/mL suspension Take 10 mL by mouth four times daily. Taking Yes aspirin, enteric coated (ASPIRIN, ENTERIC COATED) 81 mg EC tablet Take 81 mg by mouth once daily. Taking Yes PACERONE 200 mg tablet Take 200 mg by mouth once daily. Taking Yes ubidecarenone (COQ-10 ORAL) Take by mouth. Taking Yes diltiazem CD (CARDIZEM CD) 240 mg 24 hr capsule Take 1 capsule by mouth once daily. Taking Yes losartan (COZAAR) 100 mg tablet Take 1 tablet by mouth once daily. Taking Yes guaiFENesin (MUCINEX) 600 mg 12 hr tablet Take 1 tablet by mouth two times a day as needed for cold/allergy symptoms. No medication comments found. ALLERGIES Allergen Reactions Ciprofloxacin Rash Demerol [Meperidine* Vomiting Opioids - Morphine * Intolerance nausea, dizzy, sees things Opioids-Meperidine * nausea/vomiting Penicillin G hives Pravachol [Pravasta* Other: See Comments Leg cramps Sulfa (Sulfonamide * hives Vicodin [Hydrocodon* Intolerance dizzy,nausea,vomiting,headache Zithromax [Azithrom* Intolerance Objective PHYSICAL EXAM: General: alert and oriented (x3), healthy appearance and obese. Pertinent negatives noted - not distressed. Skin: normal color, no rash or lesions. HEENT: EOM intact and pupils equal round. Pertinent negatives noted - no carotid bruit. Cardiovascular: regular rate and rhythm, normal S1 and S2, no rub, murmurs, or gallop. Respiratory: normal breath sounds, no wheezes or crackles. No chest wall deformity or tenderness. Abdomen: soft. Pertinent negatives noted - not tender. Extremities: no deformity, no edema or tenderness, no joint swelling or clubbing. Neurological: normal cognition and motor skills. Gait normal. No weakness or sensory deficit. PAIN ASSESSMENT: VITALS: BP 122/54 Pulse 60 Temp (Src) 97.5 (Temporal) Resp 16 Ht 5' 5 (1.65m) Wt 230 lb (104.3kg) SpO2 94% BMI 38.27 kg/(m^2). Diagnostic tests reviewed for today's visit: Lab Value Units Date High Low HB 13.7 g/dL 11/25/2023 15.5 11.5 HCT 43.0 % 11/25/2023 46.0 36.0 WBC 7.65 k/uL 11/25/2023 11.00 3.70 PLT 223 k/uL 11/25/2023 400 150 NA 142 mmol/L 11/25/2023 144 136 K 3.8 mmol/L 11/25/2023 5.1 3.7 GLUC 99 mg/dL 11/25/2023 99 74 BUN 10 mg/dL 11/25/2023 21 7 CREAT 0.64 mg/dL 11/25/2023 0.96 0.58 PTSEC No results within date range. INR No results within date range. APTT No results within date range. ALT 23 U/L 11/25/2023 38 7 AST 25 U/L 11/25/2023 35 13 TBILI 0.7 mg/dL 11/25/2023 1.3 0.2 TSH 4.510 mIU/L 11/25/2023 4.200 0.270 Lab Value Units Date High Low HCGQT No results within date range. UHCG No results within date range. HCG, BODY* No results within date range. Lab Value Units Date High Low ABORHD No results within date range. ABSCREEN No results within date range. Hemoglobin A1C (%) Date Value 11/25/2023 5.0 03/31/2023 4.9 09/17/2022 5.2 06/04/2022 5.0 02/13/2022 5.2 01/16/2021 5.3 02/05/2020 5.3 09/05/2018 5.1 03/01/2018 5.3 03/02/2017 5.4 11/10/2016 5.4 No results found for this or any previous visit (from the past 8760 hour(s)). Recent Results (from the past 78633 hour(s)) ECHO Collection Time: 06/08/22 1:56 PM Impression CONCLUSIONS: - Technically difficult exam due to suboptimal positioning and body habitus. - Exam indication: Shortness of Breath - The left ventricle is small. Left ventricular systolic function is normal. EF = 69 5% (2D biplane) Indeterminate left ventricular diastolic dysfunction. - The right ventricle is normal in size. Right ventricular systolic function is normal. - The left atrial cavity is mildly dilated. - There is mild tricuspid insufficiency present. - There is mild pulmonic insufficiency present. - The patient has not had a prior CC echocardiographic exam for comparison. * * * Final * * * Instructions Given to Patient: Instructions located in the after visit summary. Patient given verbal and written preop instructions and voices comprehension and compliance. SIGNATURE: Mary Foster APRN.CNP PATIENT NAME: Michael Meier DATE: March 27, 2024 TIME: 2:20 PM PAGER/CONTACT #: [email or web address] History and physical note* Mary Foster APRN.CNP - 03/27/2024 2:20 PM EST Images from the original note were not included. [facility] HISTORY AND PHYSICAL EXAMINATION SERVICE DATE: 03/27/2024 SERVICE TIME: 6:43 AM PRIMARY CARE PHYSICIAN: Michael Puga DO Assessment Patient has the following medical conditions which may affect wilmar-operative course: JOSE on CPAP Assessment: c/w CPAP Obstructive lung disease (HCC) Assessment: rx as needed 12/2022 PFT's IMPRESSION: Spirometry is normal. The increase in FEF 25-75 post-bronchodilator reflects an improvement in the small airway obstruction. Primary hypertension Assessment: controlled on rx Hyperlipidemia Assessment: c/w statin 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 Last interrogation scanned into chart from 01/28/24 A-fib (HCC) Assessment: paroxymal, following [facility], daily ASA therapy Pulmonary hypertension (HCC) Assessment: moderate, RSVP 66mmHg 02/02/24 TIA (transient ischemic attack) Assessment: hx 2018, daily ASA Disorder of carotid artery (HCC) Assessment: following cardiology, only documentation found in epic states 0-29% bilaterally from 2010 Situational mixed anxiety and depressive disorder Assessment: stable on rx per pt Subclinical hypothyroidism Assessment: stable on rx Hypokalemia Assessment: taking diuretics Potassium Date Value Ref Range Status 11/25/2023 3.8 3.7 - 5.1 mmol/L Final 03/31/2023 3.3 (L) 3.7 - 5.1 mmol/L Final 12/15/2022 3.8 3.7 - 5.1 mmol/L Final Iron deficiency anemia Assessment: hx Hemoglobin (g/dL) Date Value 11/25/2023 13.7 10/29/2020 13.6 Hematocrit (%) Date Value 11/25/2023 43.0 10/29/2020 41.0 WBC (k/uL) Date Value 11/25/2023 7.65 10/29/2020 6.43 Personal history of malignant melanoma of skin Assessment: s/p excision IFG (impaired fasting glucose) Assessment: Hemoglobin A1C (%) Date Value 11/25/2023 5.0 01/16/2021 5.3 Arthritis, multiple joint involvement Assessment: hx bilateral TKA and KENN BMI 38.0-38.9,adult Assessment: Body mass index is 38.27 kg/m . GERD (gastroesophageal reflux disease) Assessment: otc rx as needed Keith Activity Status Index: METS: DASI Score: 0 Patient denies any chest pain or undue shortness of breath with the above physical activity. Clinical Frailty Scale: 4. Apparently vulnerable STOP-Bang Score: BMI greater than 35 kg/m^2 Patient over 50 years old Denies snoring loudly Denies feeling tired, fatigued, or sleepy during the daytime Has not been observed to stop breathing or choking/gasping during sleep Denies having high blood pressure Does not have a large neck Non-male patient STOP-Bang Score: 2 [id number] Score: Age: >=75 Sex: female CHF history: No Hypertension history: Yes Stroke/TIA/thromboembolism history: Yes Vascular disease history: No Diabetes history: No [id number] Score: 6 ARISCAT Score: Age: >80 Preoperative SpO2: 91-95% Respiratory infection in the last month: No Preoperative anemia: No Surgical incision: peripheral Duration of surgery: <2 hrs Emergency procedure: No ARISCAT Score: 24 ANESTHESIA FINDINGS: Intubation History: No history of difficult intubation Significant Anesthesia Considerations: none Airway History: No history of difficult airway I - PHYSICAL EVALUATION AIRWAY Patient intubated: No. Tracheostomy tube not present Mallampati: III. TM distance: >3 FB. Neck ROM: full ROM without neurological symptoms. Mouth opening: adequate. Short neck: no. Thick neck: no Romero present: no Lip Bite Test: I Microretrognathia/Micronagthia/Recessed Chin: No DENTAL Dentures, upper: partial. Dentures, lower: partial. II - ANESTHESIA PLAN Anesthetic Plan: other Beta Tenzin Monitoring Plan Post Procedure Analgesic Plan Prepared for Surgery: optimally prepared for surgery, pending [see comment]. CONSULTS: Patient does not require consults for optimization at this time Planned Anesthetic: other anesthesia choice The Following Tests/Procedures Have Been Initiated: No orders of the defined types were placed in this encounter. REASON FOR VISIT: Michael Meier is a 83 year old female who is scheduled for colonoscopy at [facility] of Dr. Raymundo De León for consultation. My final recommendation will be communicated backto the requesting physician by way of shared medical record or letter. Subjective The patient has the following: COVID-19 Immunization Status Overdue - Covid-19 Vaccine ( season) Overdue since 01/02/2024 10/14/2023 Postponed until 10/13/2024 by Marisol Cano LPN (Declined at this time) 04/05/2023 Imm Admin: COVID-19 vaccine, age 12+ yr ([employer] [facility]) 06/04/2022 Postponed until 06/04/2023 by Marisol Cano LPN (Declined at this time) Only the first 3 history entries have been loaded, but more history exists. CHIEF COMPLAINT: Pre-op exam HPI: Michael Meier is a 83 year old seen for PAC due to scheduled above surgery because of epigastric pain. 03/13/2024, Sharon Jarrett CNP HPI: Michael is a 83 year old female referred for endoscopy. Michael notes increasing in epigastric pain. Michael notes occasional heartburn. -Notes belching even without eating Epigastric pain triggered by coffee, lettuce, broccoli, tomato based, citrus fruits -gets relief with Carafate PRN -not currently on PPI Michael denies dysphagia. Michael denies a history of ulcers/ peptic ulcer disease. Michael denies family history of gastric issues. Michael follows with [facility]. Last OV 02/2024- she has had an increased in SOB with exertion. Updated ECHO with EF of 60%. Pulmonary artery systolic pressure 66 mmHg. 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 Also hx of A. Fib. Exertional SOB- states it has become worse after having pneumonia with hospitalization in October. Requested wheelchair for use with long distances but was denied. Referred today after walking into the office she needed to use Albuterol inhaler. Michael has undergone prior endoscopy. Last EGD was 01/[address] De León at [facility] Sedation:Midazolam 4 mg IV, Fentanyl 100 micrograms IV, Benzocaine spray, Ondansetron 4 mg IV Impression: - Z-line regular, 34 cm from the incisors. Biopsied. - Gastritis. Biopsied. - Normal examined duodenum. No specimens collected. FINAL DIAGNOSIS A. Stomach, antrum, biopsy: - Antral type gastric mucosa with changes of mild inactive chronic gastritis. - An H. pylori immunohistochemical stain will be performed and reported as an addendum. B. Esophagus, distal, biopsy: - Squamous mucosa with no diagnostic abnormalities. - No prominence in eosinophils or lymphocytes and no intestinal metaplasia. REVIEW OF SYSTEMS: General: No weight loss, malaise or fevers. Neurological: Positive for: strokes. Respiratory: Positive for: COPD, obstructive sleep apnea and CPAP/BiPAP compliant. Negative for: asthma, pneumonia within 6 weeks, tobacco use and URI < 2 weeks. Cardiovascular: +pulmonary HTN +carotid artery stenosis Positive for: AICD/PPM, anticoagulation therapy (ASA), atrial fibrillation, chest pain, hyperlipidemia (on rx), hypertension (on rx) and murmur/valvular heart disease Negative for: arrhythmia, CAD, CHF, congenital heart defect, DVT/PE, recent NM, open heart surgery and valve surgery. GI: Positive for: GERD (on rx) Negative for: abdominal pain, dysphagia, hepatitis, irritable bowel syndrome, inflammatory bowel disease, liver disease, nausea, vomiting and ETOH >2 drinks/day. : No history of dysuria, frequency or incontinence, stones or chronic kidney disease. No difficulty urinating, nocturia > 1 time per night or hematuria. 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 Endocrine: Positive for: hypothyroidism (on rx). Negative for: diabetes mellitus. Hematology: Positive for: bruises/bleeds easily and chronic anti-coagulation/platelet meds. Patient is on anti-coagulation/platelet medication(s): Aspirin. Negative for: anemia and transfusion of at least 4 units within 72 hours prior to surgery. Oncology: +melanoma s/p excision Psych: Positive for: anxiety (on rx) and depression (on rx). Negative for: Marijuana Use. Musculoskeletal: +bilateral TKA and KENN Positive for: back pain and joint pain. Skin: psorasis Implanted Devices: Has implanted device Implants: PPM. PAST MEDICAL HISTORY Diagnosis Date A-fib (HCC) Allergic rhinitis, cause unspecified Arrhythmia Arthritis Greater trochanteric bursitis of left hip Melanoma of skin, site unspecified 2003 back Osteoarthritis of left hip Other and unspecified hyperlipidemia Pulmonary hypertension (HCC) Situational mixed anxiety and depressive disorder Sleep apnea Stroke (HCC) Unspecified essential hypertension Unspecified gastritis and gastroduodenitis PAST SURGICAL HISTORY Procedure Laterality Date ABDOMINAL SURGERY HX APPENDECTOMY HX ARTHRP ACETBLR/PROX FEM PROSTC AGRFT/ALGRFT 12/09/2003 right hip, redone, 07/2004 ARTHRP ACETBLR/PROX FEM PROSTC AGRFT/ALGRFT Left 07/2016 ARTHRP KNE CONDYLE&PLATU MEDIAL&LAT COMPARTMENTS 11/15/2009 Knee replacement, total -Left - [facility] ARTHRP KNE CONDYLE&PLATU MEDIAL&LAT COMPARTMENTS 12/30/2009 Right knee replaced COLONOSCOPY FLX DX W/COLLJ SPEC WHEN PFRMD 06/29/2017 Colonoscopy EGD 10/17/2020 EGD W/O [facility] SPEC VARICIES INJ 01/08/2022 ESOPHAGOGASTRODUODENOSCOPY TRANSORAL DIAGNOSTIC 11/29/2000 EGD ESOPHAGOGASTRODUODENOSCOPY TRANSORAL DIAGNOSTIC 06/29/2017 EGD JOINT REPLACEMENT HX LAPS SURG CHOLECYSTECTOMY W/CHOLANGIOGRAPHY PACEMAKER IMPLANT 01/2011 SKIN BIOPSY HX TONSILLECTOMY HX TOTAL ABDOMINAL HYSTERECT W/WO RMVL TUBE OVARY Hysterectomy, GAL FAMILY HISTORY Problem Relation Age of Onset Coronary Artery Disease Mother other (cardiac arrest) Mother Coronary Artery Disease Father Diabetes Father other (congestive heart failure) Father Social History Tobacco Use Smoking status: Never Smokeless tobacco: Never Vaping Use Vaping status: Never Used Substance Use Topics Alcohol use: Not Currently Comment: rarely Drug use: No Prior to Admission medications as of 03/27/24 1423 Medication Sig Last Dose Taking cyanocobalamin (VITAMIN B-12) 1,000 mcg tab Take 1,000 mcg by mouth once daily. Taking Yes spironolactone (ALDACTONE) 25 mg tablet Take 25 mg by mouth once daily. Taking Yes hydrALAZINE (APRESOLINE) 25 mg tablet Take 25 mg by mouth once daily. Taking Yes albuterol HFA (PROVENTIL HFA, VENTOLIN HFA) 90 mcg/actuation inhaler Inhale 2 Puffs as instructed every 4 hours as needed. Taking Yes LORazepam (ATIVAN) 0.5 mg Take 1 tablet by mouth two times a day as needed (anxiety attack). TakingYes meloxicam (MOBIC) 15 mg tablet Take 1 tablet by mouth once daily. Take with food. Taking Yes fluticasone (FLOVENT) 110 mcg/actuation inhaler Inhale 1 Puff as instructed two times a day. Shake well before use. Rinse mouth after use. Taking Yes levothyroxine (SYNTHROID) 50 mcg tablet Take 1 tablet by mouth daily before breakfast. In the morning, Take on empty stomach at least 30 min before eating. For thyroid. Taking Yes PARoxetine (PAXIL) 20 mg tablet Take 1 tablet by mouth once daily. In the evening Taking Yes rosuvastatin (CRESTOR) 10 mg tablet Take 1 tablet by mouth daily at bedtime. Taking Yes RESTASIS 0.05 % ophthalmic emulsion Taking Yes Azelastine HCl (OPTIVAR) 0.05 % ophthalmic solution Taking Yes sucralfate (CARAFATE) 100 mg/mL suspension Take 10 mL by mouth four times daily. Taking Yes aspirin, enteric coated (ASPIRIN, ENTERIC COATED) 81 mg EC tablet Take 81 mg by mouth once daily. Taking Yes PACERONE 200 mg tablet Take 200 mg by mouth once daily. Taking Yes ubidecarenone (COQ-10 ORAL) Take by mouth. Taking Yes diltiazem CD (CARDIZEM CD) 240 mg 24 hr capsule Take 1 capsule by mouth once daily. Taking Yes losartan (COZAAR) 100 mg tablet Take 1 tablet by mouth once daily. Taking Yes guaiFENesin (MUCINEX) 600 mg 12 hr tablet Take 1 tablet by mouth two times a day as needed for cold/allergy symptoms. No medication comments found. ALLERGIES Allergen Reactions Ciprofloxacin Rash Demerol [Meperidine* Vomiting Opioids - Morphine * Intolerance nausea, dizzy, sees things Opioids-Meperidine * nausea/vomiting Penicillin G hives Pravachol [Pravasta* Other: See Comments Leg cramps Sulfa (Sulfonamide * hives Vicodin [Hydrocodon* Intolerance dizzy,nausea,vomiting,headache Zithromax [Azithrom* Intolerance Objective PHYSICAL EXAM: General: alert and oriented (x3), healthy appearance and obese. Pertinent negatives noted - not distressed. Skin: normal color, no rash or lesions. HEENT: EOM intact and pupils equal round. Pertinent negatives noted - no carotid bruit. Cardiovascular: regular rate and rhythm, normal S1 and S2, no rub, murmurs, or gallop. Respiratory: normal breath sounds, no wheezes or crackles. No chest wall deformity or tenderness. Abdomen: soft. Pertinent negatives noted - not tender. Extremities: no deformity, no edema or tenderness, no joint swelling or clubbing. Neurological: normal cognition and motor skills. Gait normal. No weakness or sensory deficit. PAIN ASSESSMENT: VITALS: BP 122/54 Pulse 60 Temp (Src) 97.5 (Temporal) Resp 16 Ht 5' 5 (1.65m) Wt 230 lb (104.3kg) SpO2 94% BMI 38.27 kg/(m^2). Diagnostic tests reviewed for today's visit: Lab Value Units Date High Low HB 13.7 g/dL 11/25/2023 15.5 11.5 HCT 43.0 % 11/25/2023 46.0 36.0 WBC 7.65 k/uL 11/25/2023 11.00 3.70 PLT 223 k/uL 11/25/2023 400 150 NA 142 mmol/L 11/25/2023 144 136 K 3.8 mmol/L 11/25/2023 5.1 3.7 GLUC 99 mg/dL 11/25/2023 99 74 BUN 10 mg/dL 11/25/2023 21 7 CREAT 0.64 mg/dL 11/25/2023 0.96 0.58 PTSEC No results within date range. INR No results within date range. APTT No results within date range. ALT 23 U/L 11/25/2023 38 7 AST 25 U/L 11/25/2023 35 13 TBILI 0.7 mg/dL 11/25/2023 1.3 0.2 TSH 4.510 mIU/L 11/25/2023 4.200 0.270 Lab Value Units Date High Low HCGQT No results within date range. UHCG No results within date range. HCG, BODY* No results within date range. Lab Value Units Date High Low ABORHD No results within date range. ABSCREEN No results within date range. Hemoglobin A1C (%) Date Value 11/25/2023 5.0 03/31/2023 4.9 09/17/2022 5.2 06/04/2022 5.0 02/13/2022 5.2 01/16/2021 5.3 02/05/2020 5.3 09/05/2018 5.1 03/01/2018 5.3 03/02/2017 5.4 11/10/2016 5.4 No results found for this or any previous visit (from the past 8760 hour(s)). Recent Results (from the past 99625 hour(s)) ECHO Collection Time: 06/08/22 1:56 PM Impression CONCLUSIONS: - Technically difficult exam due to suboptimal positioning and body habitus. - Exam indication: Shortness of Breath - The left ventricle is small. Left ventricular systolic function is normal. EF = 69 5% (2D biplane) Indeterminate left ventricular diastolic dysfunction. - The right ventricle is normal in size. Right ventricular systolic function is normal. - The left atrial cavity is mildly dilated. - There is mild tricuspid insufficiency present. - There is mild pulmonic insufficiency present. - The patient has not had a prior CC echocardiographic exam for comparison. * * * Final * * * Instructions Given to Patient: Instructions located in the after visit summary. Patient given verbal and written preop instructions and voices comprehension and compliance. SIGNATURE: Mary Foster APRN.CNP PATIENT NAME: Michael Meier DATE: March 27, 2024 TIME: 2:20 PM PAGER/CONTACT #: [facility] NoteHNO ID: [id number] Author: SARAH MERCHANT PT Service: ? Author Type: Physical Therapist Type: Progress Notes Filed: 03/23/2024 14:10 Note Text: Episode Visit Count: 17 Therapist That Will Accept/Oversee The Plan Of Care: Marilee Merchant Start of Care Date: 11/15/23 Onset Date: 10/22/23 Plan of Care Certification Date: 01/18/24 Next Certification Due Date: 04/17/24 REHABILITATION AND SPORTS THERAPY PHYSICAL THERAPY TREATMENT NOTE ASSESSMENT: Michael Meier tolerated the session with decreased activity tolerance due to weakness and fatigue. She demonstrated difficulty with persistent B hip weakness, balance deficits and limited activity tolerance. The patient will continue to benefit from ongoing skilled physical therapy to progress toward set goals. PLAN FOR NEXT VISIT: continue to progress endurance, strength, balance and gait. promote increased mobility/activity at home. needs recert after 04/17 SUBJECTIVE: doing ok today. pt wondering if she's made progress and if more PT will do her any good. Pt says she sits a lot at home. Pain: Pain Pain Level: 0 Pain Location: Low Back/Lumbar Spine - Left Frequency: Intermittent OBJECTIVE MEASURES WITH LEVEL OF FUNCTION: LE Strength Trunk Strength: ASLR 4+/5R/L, abdominals grossly 3-/5 R Ankle Plantar Flexion: 3-/5 L Ankle Plantar Flexion: 3-/5 Functional Performance Test Results 5 Times Sit to Stand Test : 14.81 sec (from 17 chair without UE assist) Timed Up and Go (sec): 14.01 sec Vitals BP: 170/69 Pulse: 66 SpO2: 95 % TREATMENT: Therapeutic Exercise: 1: Nu-step L3x5' B UE/LE 2: T-mill 0.5 pace x 1 minute, 22 seconds (limited by fatigue) 3: standing calf raises 13xB, wt-shifted R/L 10xea 4: standing calf stretch R/L 5: standing hip ext 10x with orange TB 10xR/L 6: standing hip Abd with B UE spt 10xR/L 7: bridging 20x 8: hooklying abdominal crunches 10x (limited by neck strain) 9: supine double leg lift 5x 10: s/l hip ABd with orange TB 10xR, unable L 11: s/l clamshell with purple TB 10xR, 10L without TB resistance 12: supine hip ABd with orange TB 20xR/L 13: seated/standing L QL stretch Skilled Intervention: Patient was educated in proper exercise technique and purpose for exercises. Skilled judgment was used in selection of appropriate interventions. Correct performance of therapeutic exercises was facilitated with verbal and visual cuing. Educated patient on rationale for performing exercises in regards to improving fitness, including balance, increase ease of ADL, and ROM and function . Patient education as noted. PT in constant attendance during use of Nu-step to review current status, monitor effort throughout activity and adjust set up as needed for maximum therapeutic benefit. Manual Therapy: 1: STM to L QL, p-spinals Skilled Intervention: Manual skills to improve joint mobility, ROM, and decrease pain. Utilized anatomy knowledge of the therapist, and assessment of patient's response to intervention. Gait Trainin: gait activities with cane on R. 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 Skilled judgment used to assess selection and proper use of assistive device. Billing Therapeutic Exercise Treatment Minutes: 53 Manual TherapyTreatment Minutes: 4 Gait Training Treatment Minutes: 5 Skilled Treatment Time Minutes (timed and untimed codes): 62 Total Session Time (minutes): 62 Session Start Time : 1239 Session Stop Time : 1341 Sarah Merchant [facility]11-21-2024 History of Present illness Narrative* Sarah Merchant, PT - 03/23/2024 1:57 PM EST Episode Visit Count: 17 Therapist That Will Accept/Oversee The Plan Of Care: Marilee Merchant Start of Care Date: 11/15/23 Onset Date: 10/22/23 Plan of Care Certification Date: 01/18/24 Next Certification Due Date: 04/17/24 REHABILITATION AND SPORTS THERAPY PHYSICAL THERAPY TREATMENT NOTE ASSESSMENT: Michael Meier tolerated the session with decreased activity tolerance due to weakness and fatigue. She demonstrated difficulty with persistent B hip weakness, balance deficits and limited activity tolerance. The patient will continue to benefit from ongoing skilled physical therapy to progress toward set goals. PLAN FOR NEXT VISIT: continue to progress endurance, strength, balance and gait. promote increased mobility/activity at home. needs recert after 04/17 SUBJECTIVE: doing ok today. pt wondering if she's made progress and if more PT will do her any good. Pt says she sits a lot at home. Pain: Pain Pain Level: 0 Pain Location: Low Back/Lumbar Spine - Left Frequency: Intermittent OBJECTIVE MEASURES WITH LEVEL OF FUNCTION: LE Strength Trunk Strength: ASLR 4+/5R/L, abdominals grossly 3-/5 R Ankle Plantar Flexion: 3-/5 L Ankle Plantar Flexion: 3-/5 Functional Performance Test Results 5 Times Sit to Stand Test : 14.81 sec (from 17 chair without UE assist) Timed Up and Go (sec): 14.01 sec Vitals BP: 170/69 Pulse: 66 SpO2: 95 % TREATMENT: Therapeutic Exercise: 1: Nu-step L3x5' B UE/LE 2: T-mill 0.5 pace x 1 minute, 22 seconds (limited by fatigue) 3: standing calf raises 13xB, wt-shifted R/L 10xea 4: standing calf stretch R/L 5: standing hip ext 10x with orange TB 10xR/L 6: standing hip Abd with B UE spt 10xR/L 7: bridging 20x 8: hooklying abdominal crunches 10x (limited by neck strain) 9: supine double leg lift 5x 10: s/l hip ABd with orange TB 10xR, unable L 11: s/l clamshell with purple TB 10xR, 10L without TB resistance 12: supine hip ABd with orange TB 20xR/L 13: seated/standing L QL stretch Skilled Intervention: Patient was educated in proper exercise technique and purpose for exercises. Skilled judgment was used in selection of appropriate interventions. Correct performance of therapeutic exercises was facilitated with verbal and visual cuing. Educated patient on rationale for performing exercises in regards to improving fitness, including balance, increase ease of ADL, and ROM and function . Patient education as noted. PT in constant attendance during use of Nu-step to review current status, monitor effort throughoutactivity and adjust set up as needed for maximum therapeutic benefit. Manual Therapy: 1: STM to L QL, p-spinals Skilled Intervention: Manual skills to improve joint mobility, ROM, and decrease pain. Utilized anatomy knowledge of the therapist, and assessment of patient's response to intervention. Gait Trainin: gait activities with cane on R. 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 Skilled judgment used to assess selection and proper use of assistive device. Billing Therapeutic Exercise Treatment Minutes: 53 Manual TherapyTreatment Minutes: 4 Gait Training Treatment Minutes: 5 Skilled Treatment Time Minutes (timed and untimed codes): 62 Total Session Time (minutes): 62 Session Start Time : 1239 Session Stop Time : 1341 Sarah Merchant PT [facility] NoteHNO ID: [id number] Author: SARAH MERCHANT PT Service: ? Author Type: Physical Therapist Type: Progress Notes Filed: 03/20/2024 15:24 Note Text: Episode Visit Count: 16 Therapist That Will Accept/Oversee The Plan Of Care: Marilee Merchant Start of Care Date: 11/15/23 Onset Date: 10/22/23 Plan of Care Certification Date: 01/18/24 Next Certification Due Date: 04/17/24 REHABILITATION AND SPORTS THERAPY PHYSICAL THERAPY PROGRESS REPORT PLAN OF CARE UPDATE: Assessment: Michael Meier demonstrates minimal improvements in rising from a chair, walking, and physical activities. The patient has progressed toward goals. Patient continues to present with impairments in ADL's, balance, gait, independence in exercise, overall function, and strength that interfere with walking, walking in the community, physical activities, recreational activities, stair negotiation, carrying . Current prognosis is Good due to: positive past response to therapy, good support system/ coping skills Fair due to: advanced age, chronic nature of impairments, limited tolerance to activity, clinical presentation . Pt remains limited by strength AND balance deficits and impaired/antalgic gait. She demonstrates impaired righting reactions (oriana with posterior LOB). The patient will benefit from continued skilled therapy services to meet the updated goals for this plan of care as noted below. Goals for Episode of Care: created on 11/15/23 through 01/14/24, extended thru 04/17/24 [place] in home exercise program. Patient will demonstrate increase in B UE AND LE strength to 4+/5 during manual muscle testing in order to improve function for home management tasks and prior functional tasks. Patient will Improve Timed Up and Go to 12 seconds to demonstrate decreased risk of falling. Patient will improve 5 time sit to stand to demonstrate improvement in functional lower extremity strength. Patient will report no falls. Patient will demonstrate independent and proper use of assisstive device to allow for improved walking quality and safety therefore reducing the risk of falls. Patient Goals: I don't know why I'm here. I guess maybe to strengthen my legs Planned Interventions, Frequency, and Duration: 2x/week, Patient to be seen for Therapeutic exercise (53122), Neuromuscular re-education (62066), Therapeutic activities (95323), Self-senior care management (08488), Gait Training (72731), Patient/Family/Caregiver Education, General Conditioning PLAN FOR NEXT VISIT: continue to progress endurance, strength, balance and gait. check 5x STS AND TUG with cane SUBJECTIVE: doing pretty good today. has had a few good days at home, getting more done. still uses rollator at home, takes cane when she goes out but takes WW or WC/transport chair if she has to walk alot. hasn't had any recent falls. pt thinks PT has been helping AND would like to continue. Functional Limitations: walking, walking in the community, physical activities, recreational activities, stair negotiation, carrying Pain: Pain Pain Level: 0 PROMIS Scales 03/16/2024 01/18/2024 11/25/2023 Higher is Better Phys Func - Score 32 (moderate dysfunction) 33 (moderate dysfunction) 35 (moderate dysfunction) Phys Func - Percentile 4 4 7 Self-Eff Symptom - Score 39 (Low) 44 (Average) 50 (Average) Self-Eff Symptom - Percentile 14 27 50 T-scores: mean of general population = 50. 5 points is clinically meaningfully difference Percentiles provide an indication of how the patient's score ranks in relation to the general population. Higher percentile rankings indicate better function/quality of life. 50th percentile is the average of the general population and indicates half of respondents had a worse score. OBJECTIVE MEASURES WITH LEVEL OF FUNCTION: LE Strength Trunk Strength: ASLR 4+ to 5/5 R Hip Flexion (L2): 5/5 R Hip ABduction: 3+/5 (3 to 3+/5) R Knee Extension (L3): 5/5 R Ankle Dorsiflexion (L4): 5/5 L Hip Flexion (L2): 5/5 L Hip ABduction: 2+/5 L Knee Extension (L3): 5/5 L Ankle Dorsiflexion (L4): 5/5 Gait Gait: Modified Independent Gait Device: Cane (cane on R) Gait Deviations: Left Lower Extremity Gait Deviations Left Lower Extremity: Trendelenburg General Deviations/Observations: Jennifer decreased, Step length decreased, Non-functional gait speed Balance Static Standing Balance Comments: Fair/Fair- (increased difficulty with posterior perturbations) TREATMENT: Therapeutic Exercise: 1: Nu-step L3x11' seat 8 2: shuttle leg press [id number]', SL 4bandsR/L 20xea (increased difficulty L vs R) 3: shuttle calf raises 4bandsB 15x 4: B calf stretch on slant board x1' 5: s/l hip Abd with 10xR, 5xL (increased difficulty L vs R) 6: supine hip Abd with orange TB 20xR/L 7: bridging 20x 8: standing calf raises 10xB 9: standing back ext 10x 10: standing hip flexor stretch R/L 11: sit to stands from mat table wi (more content not included)...[facility]11-18-2024 History of Present illness Narrative* Sarah Merchant, PT - 03/20/2024 3:18 PM EST Images from the original note were not included. Episode Visit Count: 16 Therapist That Will Accept/Oversee The Plan Of Care: Marilee Merchant Start of Care Date: 11/15/23 Onset Date: 10/22/23 Plan of Care Certification Date: 01/18/24 Next Certification Due Date: 04/17/24 REHABILITATION AND SPORTS THERAPY PHYSICAL THERAPY PROGRESS REPORT PLAN OF CARE UPDATE: Assessment: Michael Deras Alexandruabner demonstrates minimal improvements in rising from a chair, walking, and physical activities. The patient has progressed toward goals. Patient continues to present with impairments inADL's, balance, gait, independence in exercise, overall function, and strength that interfere with w alking, walking in the community, physical activities, recreational activities, stair negotiation, carrying . Current prognosis is Good due to: positive past response to therapy, good support system/coping skills Fair due to: advanced age, chronic nature of impairments, limited tolerance to activity, clinical presentation . Pt remains limited by strength & balance deficits and impaired/antalgic gait. She demonstrates impaired righting reactions (oriana with posterior LOB). The patient will benefit from continued skilled therapy services to meet the updated goals for this plan of care as noted below. Goals for Episode of Care: created on 11/15/23 through 01/14/24, extended thru 04/17/24 [place] in home exercise program. Patient will demonstrate increase in B UE & LE strength to 4+/5 during manual muscle testing in order to improve function for home management tasks and prior functional tasks. Patient will Improve Timed Up and Go to 12 seconds to demonstrate decreased risk of falling. Patient will improve 5 time sit to stand to demonstrate improvement in functional lower extremity strength. Patient will report no falls. Patient will demonstrate independent and proper use of assisstive device to allow for improved walking quality and safety therefore reducing the risk of falls. Patient Goals: I don't know why I'm here. I guess maybe to strengthen my legs Planned Interventions, Frequency, and Duration: 2x/week, Patient to be seen for Therapeutic exercise ([id number]), Neuromuscular re-education (49932), Therapeutic activities (74981), Self-senior care management (42792), Gait Training (39572), Patient/Family/Caregiver Education, General Conditioning PLAN FOR NEXT VISIT: continue to progress endurance, strength, balance and gait. check 5x STS &TUG with cane SUBJECTIVE: doing pretty good today. has had a few good days at home, getting more done. still usesrollator at home, takes cane when she goes out but takes WW or WC/transport chair if she has to walk alot. hasn't had any recent falls. pt thinks PT has been helping & would like to continue. Functional Limitations: walking, walking in the community, physical activities, recreational activities, stair negotiation, carrying Pain: Pain Pain Level: 0 PROMIS Scales 03/16/2024 01/18/2024 11/25/2023 Higher is Better Phys Func - Score 32 (moderate dysfunction) 33 (moderate dysfunction) 35 (moderate dysfunction) Phys Func - Percentile 4 4 7 Self-Eff Symptom - Score 39 (Low) 44 (Average) 50 (Average) Self-Eff Symptom - Percentile 14 27 50 T-scores: mean of general population = 50. 5 points is clinically meaningfully difference Percentiles provide an indication of how the patient's score ranks in relation to the general population. Higher percentile rankings indicate better function/quality of life. 50th percentile is the average of the general population and indicates half of respondents had a worse score. OBJECTIVE MEASURES WITH LEVEL OF FUNCTION: LE Strength Trunk Strength: ASLR 4+ to 5/5 R Hip Flexion (L2): 5/5 R Hip ABduction: 3+/5 (3 to 3+/5) R Knee Extension (L3): 5/5 R Ankle Dorsiflexion (L4): 5/5 L Hip Flexion (L2): 5/5 L Hip ABduction: 2+/5 L Knee Extension (L3): 5/5 L Ankle Dorsiflexion (L4): 5/5 Gait Gait: Modified Independent Gait Device: Cane (cane on R) Gait Deviations: Left Lower Extremity Gait Deviations Left Lower Extremity: Trendelenburg General Deviations/Observations: Jennifer decreased, Step length decreased, Non- functional gait speed Balance Static Standing Balance Comments: Fair/Fair- (increased difficulty with posterior perturbations) TREATMENT: Therapeutic Exercise: 1: Nu-step L3x11' seat 8 2: shuttle leg press [id number]', SL 4bandsR/L 20xea (increased difficulty L vs R) 3: shuttle calf raises 4bandsB 15x 4: B calf stretch on slant board x1' 5: s/l hip Abd with 10xR, 5xL (increased difficulty L vs R) 6: supine hip Abd with orange TB 20xR/L 7: bridging 20x 8: standing calf raises 10xB 9: standing back ext 10x 10: standing hip flexor stretch R/L 11: sit to stands from mat table without UE assist 10x, with emphasis on f/w wt- shift & uprightbalance (tendency for post LOB with sit to stand without UE assist) 12: recheck - see objective for details, discussed progress/deficits, 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 Skilled judgment was used in selection of appropriate interventions. Correct performance of therapeutic exercises was facilitated with verbal and visual cuing. Educated patient on rationale for performing exercises in regards to improving fitness, including balance, increase ease of ADL, and ROM and function . Patient education as noted. PT in constant attendance during use of Nu-step to review current status, monitor effort throughoutactivity and adjust set up as needed for maximum therapeutic benefit. Neuromuscular Re-Education: 1: standing wt-shifts ant/post with CREDIT AUTHORIZER (tendency for posterior LOB) 2: static stance with light manual perturbations (difficulty with posterior perturbations) Skilled Intervention: Skilled judgment used to assess appropriate program for balance and coordination activity. Education in proprioceptive/kinesthetic awareness during standing. Gait Trainin: gait with cane R vs L: increased antalgia with cane on L d/t L hip weakness Skilled Intervention: Skilled judgment used to assess selection and proper use of assistive device. Billing Therapeutic Exercise Treatment Minutes: 45 Neuromuscular Re-Education Treatment Minutes: 4 Skilled Treatment Time Minutes (timed and untimed codes): 49 Total Session Time (minutes): 49 Session Start Time : 1413 Session Stop Time : 1502 Sarah Merchant PT [facility] NoteHNO ID: [id number] Author: SARAH MERCHANT PT Service: ? Author Type: Physical Therapist Type: Progress Notes Filed: 03/16/2024 15:21 Note Text: Episode Visit Count: 15 Therapist That Will Accept/Oversee The Plan Of Care: Marilee Merchant Start of Care Date: 11/15/23 Onset Date: 10/22/23 Plan of Care Certification Date: 01/18/24 Next Certification Due Date: 04/17/24 Patient Identified by Name and Date of : Yes REHABILITATION AND SPORTS THERAPY PHYSICAL THERAPY TREATMENT NOTE ASSESSMENT: Michael Meier tolerated the session with fatigue. She demonstrated difficulty with standing exercises d/t weakness AND fatigue. The patient will continue to benefit from ongoing skilled physical therapy to progress toward set goals. PLAN FOR NEXT VISIT: continue to progress endurance, strength, balance and gait. recheck SUBJECTIVE: pt reports feeling tired today. says L shoulder has been hurting the past week (had L shoulder injury several years ago with a RCT, says she doesn't want surgery) Pain: Pain Pain Location: Shoulder - Left Frequency: Intermittent OBJECTIVE MEASURES WITH LEVEL OF FUNCTION: TREATMENT: Therapeutic Exercise: 1: Nu-step L3x10' seat 8 (reports R LE fatigue) 2: standing hip Abd 15xR/L with B UE spt (increased difficulty with L vs R SLS) 3: *standing hip flexor stretch R/L 4: standing back ext 5x 5: standing calf raises 10xB, wt-shifted R/L 10xea 6: shuttle leg press [id number]', SL 5bandsR/L 20x (increased difficulty R vs L) 7: shuttle calf raises [id number] 8: supine hip ABd with orange TB 20xR/L 9: supine ankle DF with orange TB 10xR Skilled Intervention: Patient was educated in proper exercise technique and purpose for exercises. Reviewed and educated patient on additions/changes for home exercise program as above (*). Skilled judgment was used in selection of appropriate interventions. Correct performance of therapeutic exercises was facilitated with verbal and visual cuing. Educated patient on rationale for performing exercises in regards to decreasing fatigue , improving fitness, increase ease of ADL, and ROM and function . Patient education as noted. PT in constant attendance during use of Nu-step to review current status, monitor effort throughout activity and adjust set up as needed for maximum therapeutic benefit. Billing Therapeutic Exercise Treatment Minutes: 41 Skilled Treatment Time Minutes (timed and untimed codes): 41 Total Session Time (minutes): 41 Session Start Time : 1248 Session Stop Time : 1329 [facility] Present illness Narrative* Sarah Merchant, PT - 03/16/2024 3:19 PM EST Episode Visit Count: 15 Therapist That Will Accept/Oversee The Plan Of Care: Marilee Merchant Start of Care Date: 11/15/23 Onset Date: 10/22/23 Plan of Care Certification Date: 01/18/24 Next Certification Due Date: 04/17/24 Patient Identified by Name and Date of : Yes REHABILITATION AND SPORTS THERAPY PHYSICAL THERAPY TREATMENT NOTE ASSESSMENT: Michael Meier tolerated the session with fatigue. She demonstrated difficulty with standing exercises d/t weakness & fatigue. The patient will continue to benefit from ongoing skilled physical therapy to progress toward set goals. PLAN FOR NEXT VISIT: continue to progress endurance, strength, balance and gait. recheck SUBJECTIVE: pt reports feeling tired today. says L shoulder has been hurting the past week (had L shoulder injury several years ago with a RCT, says she doesn't want surgery) Pain: Pain Pain Location: Shoulder - Left Frequency: Intermittent OBJECTIVE MEASURES WITH LEVEL OF FUNCTION: TREATMENT: Therapeutic Exercise: 1: Nu-step L3x10' seat 8 (reports R LE fatigue) 2: standing hip Abd 15xR/L with B UE spt (increased difficulty with L vs R SLS) 3: *standing hip flexor stretch R/L 4: standing back ext 5x 5: standing calf raises 10xB, wt-shifted R/L 10xea 6: shuttle leg press [id number]', SL 5bandsR/L 20x (increased difficulty R vs L) 7: shuttle calf raises [id number] 8: supine hip ABd with orange TB 20xR/L 9: supine ankle DF with orange TB 10xR Skilled Intervention: Patient was educated in proper exercise technique and purpose for exercises. Reviewed and educated patient on additions/changes for home exercise program as above (*). Skilled judgment was used in selection of appropriate interventions. Correct performance of therapeutic exercises was facilitated with verbal and visual cuing. Educated patient on rationale for performing exercises in regards to decreasing fatigue , improvingfitness, increase ease of ADL, and ROM and function . Patient education as noted. PT in constant attendance during use of Nu-step to review current status, monitor effort throughoutactivity and adjust set up as needed for maximum therapeutic benefit. Billing Therapeutic Exercise Treatment Minutes: 41 Skilled Treatment Time Minutes (timed and untimed codes): 41 Total Session Time (minutes): 41 Session Start Time : 1248 Session Stop Time : 1329 Sarah Merchant PT [facility]24 NoteHNO ID: [id number] Author: JOY SUN PTA Service: ? Author Type: [employer] Umpire Type: Progress Notes Filed: 03/14/2024 10:47 Note Text: Episode Visit Count: 14 Therapist That Will Accept/Oversee The Plan Of Care: Marilee Merchant Start of Care Date: 11/15/23 Onset Date: 10/22/23 Plan of Care Certification Date: 01/18/24 Next Certification Due Date: 04/17/24 Patient Identified by Name and Date of : Yes REHABILITATION AND SPORTS THERAPY PHYSICAL THERAPY TREATMENT NOTE ASSESSMENT: Michael Meier tolerated the session with fatigue. She demonstrated difficulty with endurance. The patient will continue to benefit from ongoing skilled physical therapy to progress toward set goals. PLAN FOR NEXT VISIT: continue to progress endurance, strength, balance and gait SUBJECTIVE: Pt states that she does not have any pain prior to session however her legs are tired this morning Pain: Pain Pain Level: 0 Post Treatment Pain Post Treatment Pain Level: No Change OBJECTIVE MEASURES WITH LEVEL OF FUNCTION: TREATMENT: Therapeutic Exercise: 1: Nustep seat 8 lvl 2 10 minutes LIME KILN OPERATOR in constant attendence monitoring technique and reviewing HEP 2: shuttle leg press [id number]', SL 4bands 20x 3: shuttle calf raises 6bandsB 10x 4: supine hip ABd with orange TB 20xR/L 5: Bridges x15 6: PF/DF blue T-band x20 7: INV/EV blue T-band x20 Skilled Intervention: Patient was educated in proper exercise technique and purpose for exercises. Skilled judgment was used in selection of appropriate interventions. Correct performance of therapeutic exercises was facilitated with verbal cuing. Billing Therapeutic Exercise Treatment Minutes: 44 Skilled Treatment Time Minutes (timed and untimed codes): 44 Total Session Time (minutes): 44 Session Start Time : 1001 Session Stop Time : 1045 Joy Sun [facility]11-12-2024 History of Present illness Narrative* Joy Sun, [facility] - 03/14/2024 10:46 AM EST Episode Visit Count: 14 Therapist That Will Accept/Oversee The Plan Of Care: Marilee Merchant Start of Care Date: 11/15/23 Onset Date: 10/22/23 Plan of Care Certification Date: 01/18/24 Next Certification Due Date: 04/17/24 Patient Identified by Name and Date of : Yes REHABILITATION AND SPORTS THERAPY PHYSICAL THERAPY TREATMENT NOTE ASSESSMENT: Michael Meier tolerated the session with fatigue. She demonstrated difficulty with endurance. The patient will continue to benefit from ongoing skilled physical therapy to progress toward set goals. PLAN FOR NEXT VISIT: continue to progress endurance, strength, balance and gait SUBJECTIVE: Pt states that she does not have any pain prior to session however her legs are tired this morning Pain: Pain Pain Level: 0 Post Treatment Pain Post Treatment Pain Level: No Change OBJECTIVE MEASURES WITH LEVEL OF FUNCTION: TREATMENT: Therapeutic Exercise: 1: Nustep seat 8 lvl 2 10 minutes LIME KILN OPERATOR in constant attendence monitoring technique and reviewing HEP 2: shuttle leg press [id number]', SL 4bands 20x 3: shuttle calf raises 6bandsB 10x 4: supine hip ABd with orange TB 20xR/L 5: Bridges x15 6: PF/DF blue T-band x20 7: INV/EV blue T-band x20 Skilled Intervention: Patient was educated in proper exercise technique and purpose for exercises. Skilled judgment was used in selection of appropriate interventions. Correct performance of therapeutic exercises was facilitated with verbal cuing. Billing Therapeutic Exercise Treatment Minutes: 44 Skilled Treatment Time Minutes (timed and untimed codes): 44 Total Session Time (minutes): 44 Session Start Time : 1001 Session Stop Time : 1045 Joy Sun PTA documented [facility]11-[facility]24 Telephone encounter Note * Telephone Encounter - Joshua Mcdowell - 03/13/2024 2:43 PM EST 03-31-2024 EGD Elizabeth Mcdowell [facility]11-11-2024 Miscellaneous Notes* Telephone Encounter - Joshua Mcdowell - 03/13/2024 2:43 PM EST 03-31-2024 EGD Elizabeth Mcdowell documented [facility]11-[facility]24 History of Present illness Narrative* Sharon Jarrett APRN.CARMELINA - 03/13/2024 2:30 PM EST HISTORY AND PHYSICAL Michael Meier : 1940 REFERRING PHYSICIAN: Michael Puga [address] [facility] [id number] CHIEF COMPLAINT: Patient presents with: Consult: EGD consultation, epigastric abdominal pain. HPI: Michael is a 83 year old female referred for endoscopy. Michael notes increasing in epigastric pain. Michael notes occasional heartburn. -Notes belching even without eating Epigastric pain triggered by coffee, lettuce, broccoli, tomato based, citrus fruits -gets relief with Carafate PRN -not currently on PPI Michael denies dysphagia. Michael denies a history of ulcers/ peptic ulcer disease. Michael denies family history of gastric issues. Michael follows with [facility]. Last OV 02/2024- she has had an increased in SOB with exertion. Updated ECHO with EF of 60%. Pulmonary artery systolic pressure 66 mmHg. 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 Also hx of A. Fib. Exertional SOB- states it has become worse after having pneumonia with hospitalization in October. Requested wheelchair for use with long distances but was denied. Referred today after walking into the office she needed to use Albuterol inhaler. Michael has undergone prior endoscopy. Last EGD was 01/[address] De León at [facility] Sedation:Midazolam 4 mg IV, Fentanyl 100 micrograms IV, Benzocaine spray, Ondansetron 4 mg IV Impression: - Z-line regular, 34 cm from the incisors. Biopsied. - Gastritis. Biopsied. - Normal examined duodenum. No specimens collected. FINAL DIAGNOSIS A. Stomach, antrum, biopsy: - Antral type gastric mucosa with changes of mild inactive chronic gastritis. - An H. pylori immunohistochemical stain will be performed and reported as an addendum. B. Esophagus, distal, biopsy: - Squamous mucosa with no diagnostic abnormalities. - No prominence in eosinophils or lymphocytes and no intestinal metaplasia. Current Outpatient Medications Medication Sig cyanocobalamin (VITAMIN B-12) 1,000 mcg tab Take 1,000 mcg by mouth once daily. spironolactone (ALDACTONE) 25 mg tablet Take 25 mg by mouth once daily. hydrALAZINE (APRESOLINE) 25 mg tablet Take 25 mg by mouth once daily. albuterol HFA (PROVENTIL HFA, VENTOLIN HFA) 90 mcg/actuation inhaler Inhale 2 Puffs as instructed every 4 hours as needed. LORazepam (ATIVAN) 0.5 mg Take 1 tablet by mouth two times a day as needed (anxiety attack). meloxicam (MOBIC) 15 mg tablet Take 1 tablet by mouth once daily. Take with food. fluticasone (FLOVENT) 110 mcg/actuation inhaler Inhale 1 Puff as instructed two times a day. Shake well before use. Rinse mouth after use. levothyroxine (SYNTHROID) 50 mcg tablet Take 1 tablet by mouth daily before breakfast. In the morning, Take on empty stomach at least 30 min before eating. For thyroid. PARoxetine (PAXIL) 20 mg tablet Take 1 tablet by mouth once daily. In the evening guaiFENesin (MUCINEX) 600 mg 12 hr tablet Take 1 tablet by mouth two times a day as needed for cold/allergy symptoms. RESTASIS 0.05 % ophthalmic emulsion Azelastine HCl (OPTIVAR) 0.05 % ophthalmic solution sucralfate (CARAFATE) 100 mg/mL suspension Take 10 mL by mouth four times daily. aspirin, enteric coated (ASPIRIN, ENTERIC COATED) 81 mg EC tablet Take 81 mg by mouth once daily. PACERONE 200 mg tablet Take 200 mg by mouth once daily. ubidecarenone (COQ-10 ORAL) Take by mouth. diltiazem CD (CARDIZEM CD) 240 mg 24 hr capsule Take 1 capsule by mouth once daily. losartan (COZAAR) 100 mg tablet Take 1 tablet by mouth once daily. rosuvastatin (CRESTOR) 10 mg tablet Take 1 tablet by mouth daily at bedtime. No current facility-administered medications for this visit. ALLERGIES: Ciprofloxacin, Demerol [Meperidine (Pf)], Opioids - Morphine Analogues, Opioids-Meperidine And Related, Penicillin G, Pravachol [Pravastatin Sodium], Sulfa (Sulfonamide Antibiotics), Vicodin [Hydrocodone-Acetaminophen], and Zithromax [Azithromycin] PAST MEDICAL HISTORY Diagnosis Date A-fib (HCC) Allergic rhinitis, cause unspecified Arrhythmia Arthritis Greater trochanteric bursitis of left hip Melanoma of skin, site unspecified 2003 back Osteoarthritis of left hip Other and unspecified hyperlipidemia Pulmonary hypertension (HCC) Situational mixed anxiety and depressive disorder Sleep apnea Stroke (HCC) Unspecified essential hypertension Unspecified gastritis and gastroduodenitis PAST SURGICAL HISTORY Procedure Laterality Date ABDOMINAL SURGERY HX APPENDECTOMY HX ARTHRP ACETBLR/PROX FEM PROSTC AGRFT/ALGRFT 12/09/2003 right hip, redone, 07/2004 ARTHRP ACETBLR/PROX FEM PROSTC AGRFT/ALGRFT Left 07/2016 ARTHRP E CONDYLE&PLATU MEDIAL&LAT COMPARTMENTS 11/15/2009 Knee replacement, total -Left - [facility] ARTHRP KNE CONDYLE&PLATU MEDIAL&LAT COMPARTMENTS 12/30/2009 Right knee replaced COLONOSCOPY FLX DX W/COLLJ SPEC WHEN PFRMD 06/29/2017 Colonoscopy EGD 10/17/2020 EGD W/O [facility] SPEC VARICIES INJ 01/08/2022 ESOPHAGOGASTRODUODENOSCOPY TRANSORAL DIAGNOSTIC 11/29/2000 EGD ESOPHAGOGASTRODUODENOSCOPY TRANSORAL DIAGNOSTIC 06/29/2017 EGD JOINT REPLACEMENT HX LAPS SURG CHOLECYSTECTOMY W/CHOLANGIOGRAPHY PACEMAKER IMPLANT 01/2011 SKIN BIOPSY HX TONSILLECTOMY HX TOTAL ABDOMINAL HYSTERECT W/WO RMVL TUBE OVARY Hysterectomy, GAL FAMILY HISTORY Problem Relation Age of Onset Coronary Artery Disease Mother other (cardiac arrest) Mother Coronary Artery Disease Father Diabetes Father other (congestive heart failure) Father Social History Tobacco Use Smoking status: Never Smokeless tobacco: Never Vaping Use Vaping status: Never Used Substance Use Topics Alcohol use: Not Currently Comment: rarely Drug use: No REVIEW OF SYMPTOMS: REVIEW OF SYSTEMS: General: The patient + fatigue, denies weight loss, + weight gain, denies feeling hot, and feelingsof cold. Eyes: The patient denies glaucoma, + eye injury/surgery, + glasses or contacts. Ear/Nose/Throat: The patient denies allergies, denies hayfever, denies ear infections, and denies bloody noses. Cardiovascular: The patient denies chest pain, denies heart disease, + high blood pressure, + high cholesterol, and denies poor circulation. Respiratory: The patient denies tuberculosis, + pneumonia, denies frequent cough, + shortness of breath, and denies coughing up blood. Gastrointestinal: The patient denies difficulty swallowing, + acid reflux, denies ulcers, denies jaundice/hepatitis, + gallbladder problems, denies vomiting, denies black or tarry stools, + hemorrhoids, + bleeding from rectum, + diverticulitis, denies constipation, denies diarrhea, denies loss of stool control, and denies hernias. Kidney/Bladder: The patient denies kidney stones, + urine infections, and denies bloody urine. Skin: The patient + a history of skin cancer, denies bleeding/changing moles, and denies a history of skin rash. Neurologic: The patient denies a history of epilepsy/convulsions, denies headaches, denies head/spinal injuries, and denies stroke/+TIA. Psychiatric: The patient denies psychiatric medications, + depression, and denies voices. Endocrine: The patient + thyroid disorders, denies diabetes, and denies hormonal problems. Hematologic: The patient denies a history of bruising, denies bleeding, and denies anemia. Infections: The patient + a history of measles and mumps, denies rheumatic fever, and denies sexually transmitted diseases. Musculoskeletal: The patient + back pain/injury, + back problems, + sciatica, denies knee/foot trouble, + arthritis, or denies gout. PHYSICAL EXAMINATION: General: The patient is 83 year old, female well nourished, well hydrated in no acute distress. Thepatient is oriented to time, place, and person. VITALS: Blood pressure 184/75, pulse 71, temperature 36.4 C (97.5 F), height 165.1 cm (5' 5), weight 105 kg (231 lb 6.4 oz), SpO2 93%. Body mass index is 38.51 kg/m . HEENT: Normal cephalic, ataumatic, pupils are equally round, sclera are anicteric, mucous membranesare moist, oropharynx is clear. Neck has no masses, asymmetry or lymphadenopathy. Respiratory: Clear to auscultation and percussion. Normal respiratory excursion and pattern. Cardiac: Examination is regular rate and rhythm. Normal S1/S2 Abdominal exam: Soft, nontender, with no palpable masses. No hepatosplenomegaly. No palpable hernias. Extremities: no clubbing, cyanosis or edema. No adenopathy. LABORATORY VALUES: As Noted RADIOLOGIC STUDIES: As Noted Assessment IMPRESSION: epigastric pain PLAN: I have reviewed my findings with the surgeon. Will plan for upper endoscopy. We discussed therisks and benefits of the planned endoscopy. I have informed the patient that complications can occur including failure to complete the endoscopy and perforation. Michael had the opportunity to ask questions concerning the planned endoscopy. My staff has also explained the procedure to the patient inunderstandable terms and has given the patient printed material concerning the procedure. Michael freely consents to surgery. I have explained to the patient the difference between IV conscious sedation and MAC anesthesia - and I have offered either, according to the patient's wishes. I have explained that with IV conscioussedation there is no anesthesia provider available and therefore there is a limitation of the amount of IV medications that can be given and that the patient may wake up in the middle of the procedure and/or experience pain/discomfort during the procedure. Further discussion was done and the patient was given the opportunity to ask questions and all questions were answered. MAC anesthesia with PACC d/t pulmonary HTN & worsening SOB. Michael was counseled that if there are changes in his/her medical condition, to let the office know if surgery should proceed. If there are changes in patient's medical condition from time of this encounter to the day of the procedure that preclude anesthesia, patient may have procedure cancelled for patient's safety. Diagnoses: (R10.13) Epigastric abdominal pain (primary encounter diagnosis) (I27.20) Pulmonary hypertension (HCC) Consultation requested by Dr. Puga for an opinion regarding epigastric pain. My final recommendations will be communicated back to the requesting physician by way of shared Medical record or letter to requesting physician via US mail. Portions of this documentation were copied and pasted from previous office visit notes in order to provide a cohesive continuity of the history. The note has been reviewed and edited and updated as necessary. Sharon Jarrett APRN.CARMELINA documented [facility] this encounter[facility]11-11-2024 NoteHNO ID: [id number] Author: SAHRON JARRETT APRN.HATCHERY MAN Service: ? Author Type: Nurse Practitioner Type: Progress Notes Filed: 03/13/2024 14:47 Note Text: HISTORY AND PHYSICAL Michael Meier : 1940 REFERRING PHYSICIAN: Michael Puga [address] [facility] [id number] CHIEF COMPLAINT: Patient presents with: Consult: EGD consultation, epigastric abdominal pain. HPI: Michael is a 83 year old female referred for endoscopy. Michael notes increasing in epigastric pain. Michael notes occasional heartburn. -Notes belching even without eating Epigastric pain triggered by coffee, lettuce, broccoli, tomato based, citrus fruits -gets relief with Carafate PRN -not currently on PPI Michael denies dysphagia. Michael denies a history of ulcers/ peptic ulcer disease. Michael denies family history of gastric issues. Michael follows with [facility]. Last OV 02/2024- she has had an increased in SOB with exertion. Updated ECHO with EF of 60%. Pulmonary artery systolic pressure 66 mmHg. 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 Also hx of A. Fib. Exertional SOB- states it has become worse after having pneumonia with hospitalization in October. Requested wheelchair for use with long distances but was denied. Referred today after walking into the office she needed to use Albuterol inhaler. Michael has undergone prior endoscopy. Last EGD was 01/[address] De León at [facility] Sedation:Midazolam 4 mg IV, Fentanyl 100 micrograms IV, Benzocaine spray, Ondansetron 4 mg IV Impression: - Z-line regular, 34 cm from the incisors. Biopsied. - Gastritis. Biopsied. - Normal examined duodenum. No specimens collected. FINAL DIAGNOSIS A. Stomach, antrum, biopsy: - Antral type gastric mucosa with changes of mild inactive chronic gastritis. - An H. pylori immunohistochemical stain will be performed and reported as an addendum. B. Esophagus, distal, biopsy: - Squamous mucosa with no diagnostic abnormalities. - No prominence in eosinophils or lymphocytes and no intestinal metaplasia. Current Outpatient Medications Medication Sig cyanocobalamin (VITAMIN B-12) 1,000 mcg tab Take 1,000 mcg by mouth once daily. spironolactone (ALDACTONE) 25 mg tablet Take 25 mg by mouth once daily. hydrALAZINE (APRESOLINE) 25 mg tablet Take 25 mg by mouth once daily. albuterol HFA (PROVENTIL HFA, VENTOLIN HFA) 90 mcg/actuation inhaler Inhale 2 Puffs as instructed every 4 hours as needed. LORazepam (ATIVAN) 0.5 mg Take 1 tablet by mouth two times a day as needed (anxiety attack). meloxicam (MOBIC) 15 mg tablet Take 1 tablet by mouth once daily. Take with food. fluticasone (FLOVENT) 110 mcg/actuation inhaler Inhale 1 Puff as instructed two times a day. Shake well before use. Rinse mouth after use. levothyroxine (SYNTHROID) 50 mcg tablet Take 1 tablet by mouth daily before breakfast. In the morning, Take on empty stomach at least 30 min before eating. For thyroid. PARoxetine (PAXIL) 20 mg tablet Take 1 tablet by mouth once daily. In the evening guaiFENesin (MUCINEX) 600 mg 12 hr tablet Take 1 tablet by mouth two times a day as needed for cold/allergy symptoms. RESTASIS 0.05 % ophthalmic emulsion Azelastine HCl (OPTIVAR) 0.05 % ophthalmic solution sucralfate (CARAFATE) 100 mg/mL suspension Take 10 mL by mouth four times daily. aspirin, enteric coated (ASPIRIN, ENTERIC COATED) 81 mg EC tablet Take 81 mg by mouth once daily. PACERONE 200 mg tablet Take 200 mg by mouth once daily. ubidecarenone (COQ-10 ORAL) Take by mouth. diltiazem CD (CARDIZEM CD) 240 mg 24 hr capsule Take 1 capsule by mouth once daily. losartan (COZAAR) 100 mg tablet Take 1 tablet by mouth once daily. rosuvastatin (CRESTOR) 10 mg tablet Take 1 tablet by mouth daily at bedtime. No current facility-administered medications for this visit. ALLERGIES: Ciprofloxacin, Demerol [Meperidine (Pf)], Opioids - Morphine Analogues, Opioids-Meperidine And Related, Penicillin G, Pravachol [Pravastatin Sodium], Sulfa (Sulfonamide Antibiotics), Vicodin [Hydrocodone-Acetaminophen], and Zithromax [Azithromycin] PAST MEDICAL HISTORY Diagnosis Date A-fib (HCC) Allergic rhinitis, cause unspecified Arrhythmia Arthritis Greater trochanteric bursitis of left hip Melanoma of skin, site unspecified 2003 back Osteoarthritis of left hip Other and unspecified hyperlipidemia Pulmonary hypertension (HCC) Situational mixed anxiety and depressive disorder Sleep apnea Stroke (HCC) Unspecified essential hypertension Unspecified gastritis and gastroduodenitis PAST SURGICAL HISTORY Procedure Laterality Date ABDOMINAL SURGERY HX APPENDECTOMY HX ARTHRP ACETBLR/PROX FEM PROSTC AGRFT/ALGRFT 12/09/2003 right hip, redone, 07/2004 ARTHRP ACETBLR/PROX FEM PROSTC AGRFT/ALGRFT Left 07/2016 [facility] CON[facility]ANDLAT COMPART[facility] 11/15/2009 Knee replacement, total -Left - [facility] ARTHRP KATIE MOSS (more content not included)...[facility] [place] 03-09-2024 Telephone encounter Note* Telephone Encounter - Sultana Catalan RN - 03/09/2024 3:13 PM EST Called pt and notified. [facility]11-07-[facility] Miscellaneous Notes* Telephone Encounter - Sultana Catalan RN - 03/09/2024 3:13 PM EST Called pt and notified. * Telephone Encounter - Michael Puga DO - 03/08/2024 9:35 PM EST Please inform patient Michael Alyssa DO Edd * Telephone Encounter - Mary Lopez LPN - 03/08/2024 10:01 AM EST Patient does not meet Medicare Guidelines to have the Wheelchair covered by insurance. States that patient needs to require a wheelchair for most of her daily needs. According to OV note they received it does not appear that she does. Please advise. documented in this [facility]11-[facility]-2024 Telephone encounter Note * Telephone Encounter - Michael Puga DO - 03/08/2024 9:35 PM EST Please inform patient Michael Shah DO Edd [facility]11-06-[facility] Telephone encounter Note* Telephone Encounter - Mary Lopez LPN - 03/08/2024 10:01 AM EST Patient does not meet Medicare Guidelines to have the Wheelchair covered by insurance. States that patient needs to require a wheelchair for most of her daily needs. According to OV note they received it does not appear that she does. Please advise. [facility]10-31-2024 NoteHNO ID: [id number] Author: SARAH MERCHANT PT Service: ? Author Type: Physical Therapist Type: Progress Notes Filed: 03/02/2024 15:09 Note Text: Episode Visit Count: 13 Therapist That Will Accept/Oversee The Plan Of Care: Marilee Merchant Start of Care Date: 11/15/23 Onset Date: 10/22/23 Plan of Care Certification Date: 01/18/24 Next Certification Due Date: 04/17/24 RE[facility]ABIL[facility]ATION AND SPORTS THERAPY PHYSICAL THERAPY TREATMENT NOTE ASSESSMENT: Michael Meier tolerated the session with decreased activity tolerance due to pain and fatigue. She demonstrated difficulty with increased low back pain and gait instability. The patient will continue to benefit from ongoing skilled physical therapy to progress toward set goals. PLAN FOR NEXT VISIT: continue to progress strength AND endurance, balance, gait AND overall mobility SUBJECTIVE: pt reports increased LBP over the past 3 days - thinks it's from her stenosis, maybe from driving to/from [place] recently. saw PCP yesterday who prescribed Meloxicam. still limited by weakness AND fatigue. says walking distance/tolerance is limited by fatigue/SOB > LBP Pain: Pain Pain Level: 9 Pain Location: Low Back/Lumbar Spine - Left Frequency: Intermittent, Standing OBJECTIVE MEASURES WITH LEVEL OF FUNCTION: TREATMENT: Therapeutic Exercise: 1: Nu-step L2x15' seat 9 2: shuttle leg press [id number]', SL 4bandsL 20x, [id number] 3: shuttle calf raises 6bandsB 10x 4: standing lumbar flexion AND extension 5xea 5: supine hip ABd with orange TB 20xR/L 6: bridging 10-15x 7: supine HS stretch R/L Skilled Intervention: Patient was educated in proper exercise technique and purpose for exercises. Skilled judgment was used in selection of appropriate interventions. Correct performance of therapeutic exercises was facilitated with verbal and visual cuing. Educated patient on rationale for performing exercises in regards to improving fitness, including balance, increase ease of ADL, and ROM and function. Patient education as noted. PT in constant attendance during use of Nu-step to review current status, monitor effort throughout activity and adjust set up as needed for maximum therapeutic benefit. Billing Therapeutic Exercise Treatment Minutes: 46 Skilled Treatment Time Minutes (timed and untimed codes): 46 Total Session Time (minutes): 46 Session Start Time : 1248 Session Stop Time : 1334 Sarah Merchant [facility]10-31-2024 History of Present illness Narrative* Sarah Merchant, PT - 03/02/2024 3:06 PM EDT Episode Visit Count: 13 Therapist That Will Accept/Oversee The Plan Of Care: Marilee Merchant Start of Care Date: 11/15/23 Onset Date: 10/22/23 Plan of Care Certification Date: 01/18/24 Next Certification Due Date: 04/17/24 REHABILITATION AND SPORTS THERAPY PHYSICAL THERAPY TREATMENT NOTE ASSESSMENT: Michael Meier tolerated the session with decreased activity tolerance due to pain and fatigue. She demonstrated difficulty with increased low back pain and gait instability. The patient will continue to benefit from ongoing skilled physical therapy to progress toward set goals. PLAN FOR NEXT VISIT: continue to progress strength & endurance, balance, gait & overall mobility SUBJECTIVE: pt reports increased LBP over the past 3 days - thinks it's from her stenosis, maybe from driving to/from [place] recently. saw PCP yesterday who prescribed Meloxicam. still limited by weakness & fatigue. says walking distance/tolerance is limited by fatigue/SOB > LBP Pain: Pain Pain Level: 9 Pain Location: Low Back/Lumbar Spine - Left Frequency: Intermittent, Standing OBJECTIVE MEASURES WITH LEVEL OF FUNCTION: TREATMENT: Therapeutic Exercise: 1: Nu-step L2x15' seat 9 2: shuttle leg press 5pctfrRq8', SL 4bandsL 20x, [id number] 3: shuttle calf raises 6bandsB 10x 4: standing lumbar flexion & extension 5xea 5: supine hip ABd with orange TB 20xR/L 6: bridging 10-15x 7: supine HS stretch R/L Skilled Intervention: Patient was educated in proper exercise technique and purpose for exercises. Skilled judgment was used in selection of appropriate interventions. Correct performance of therapeutic exercises was facilitated with verbal and visual cuing. Educated patient on rationale for performing exercises in regards to improving fitness, including balance, increase ease of ADL, and ROM and function. Patient education as noted. PT in constant attendance during use of Nu-step to review current status, monitor effort throughoutactivity and adjust set up as needed for maximum therapeutic benefit. Billing Therapeutic Exercise Treatment Minutes: 46 Skilled Treatment Time Minutes (timed and untimed codes): 46 Total Session Time (minutes): 46 Session Start Time : 1248 Session Stop Time : 1334 Sarah Merchant PT [facility] Telephone encounter Note * Telephone Encounter - Bhavna Arauz RN - 03/02/2024 1:47 PM EDT Patient calls and notified of below. Voices understanding. Bhavna Arauz RN [facility]10-31-2024 Miscellaneous Notes* Telephone Encounter - Bhavna Arauz RN - 03/02/2024 1:47 PM EDT Patient calls and notified of below. Voices understanding. Bhavna Arauz RN * Telephone Encounter - Jacque Machuca MA - 03/02/2024 1:28 PM EDT Faxed to [facility]. Left message to return call. Please notify patient. Jacque Machuca MA * Telephone Encounter - Michael Puga DO - 03/01/2024 10:50 PM EDT Fax my office note from today and standard [facility] andthen notify her Michael Puga DO [facility] Telephone encounter Note * Telephone Encounter - Jacque Machuca MA - 03/02/2024 1:28 PM EDT Faxed to [facility]. Left message to return call. Please notify patient. Jacque Machuca MA [facility]10-30-2024 Telephone encounter Note* Telephone Encounter - Michael Puga DO - 03/01/2024 10:50 PM EDT Fax my office note from today and standard wheelchair to [facility] listed andthen notify her Michael Puga DO [facility]10-30-2024 NoteHNO ID: [id number] Author: MICAHEL PUGA DO Service: ? Author Type: Physician Type: Progress Notes Filed: 03/01/2024 22:37 Note Text: CC: Michael Meier is a 83 year old female who presents to the office for follow up HPI: Seen in office last in October , at that time Recently had URI end of August, she was Diagnosed with pneumonia and treated with IV antibiotics and breathing treatments and oxygen x 3 weeks into end of October. Recently she has started with another cough and chest congestion and feeling fatigued and worn out. She admits that prior to these infections starting, she hadn't been taking any of her vitamins or supplements at all. No fevers or chills. No vomiting or diarrhea. Had been taking some tylenol and mucinex only Hypothyroidism, hasn't been taking her levothyroxine medication but willing to restart this. She states I didn't think it was helping me at all so I stopped it. Currently Hypothyroidism, she has restarted the levothyroxine, does help fatigue symptoms. TSH was stable and improved at 1.6 with recent lab check at [employer] office in Jan at [facility], she is using her Bipap each night and feels that this has helped her fatigue and hypersomnolence during the day. Weakness, gait changes. Chronic low back pain, she has been to PHYSICAL THERAPY, she has been seen by pain mgmt. She wants to try to avoid having to go get injections in her spine again. She does feel that she needs a wheelchair though sometimes since if she has to stand or walk for a while she feels generalized lower leg and thigh weakness like I could fall. Otherwise she does use her cane. Chronic dyspnea, has been fully evaluated by [employer] whom doesn't feel this is due to cardiac cause, feels it is due to her COPD. She is willing to try a controller medication/inhaler, gets some temporary relief with albuterol PAST MEDICAL HISTORY Diagnosis Date A-fib (HCC) Allergic rhinitis, cause unspecified Arrhythmia Arthritis Greater trochanteric bursitis of left hip Melanoma of skin, site unspecified 2003 back Osteoarthritis of left hip Other and unspecified hyperlipidemia Situational mixed anxiety and depressive disorder Sleep apnea Stroke (HCC) Unspecified essential hypertension Unspecified gastritis and gastroduodenitis PAST SURGICAL HISTORY Procedure Laterality Date ABDOMINAL SURGERY HX APPENDECTOMY HX ARTHRP ACETBLR/PROX FEM PROSTC AGRFT/ALGRFT 12/09/2003 right hip, redone, 07/2004 ARTHRP ACETBLR/PROX FEM PROSTC AGRFT/ALGRFT Left 07/2016 [facility] CONDYLEANDPL[facility]U MEDIALANDLAT COMPARTMENTS 11/15/2009 Knee replacement, total -Left - [facility] ARTHRP KNE CONDYLEANDPLATU MEDIALANDLAT COMPARTMENTS 12/30/2009 Right knee replaced COLONOSCOPY FLX DX W/COLLJ SPEC WHEN PFRMD 06/29/2017 Colonoscopy EGD 10/17/2020 EGD W/O [facility] SPEC VARICIES INJ 01/08/2022 ESOPHAGOGASTRODUODENOSCOPY TRANSORAL DIAGNOSTIC 11/29/2000 EGD ESOPHAGOGASTRODUODENOSCOPY TRANSORAL DIAGNOSTIC 06/29/2017 EGD JOINT REPLACEMENT HX LAPS SURG CHOLECYSTECTOMY W/CHOLANGIOGRAPHY PACEMAKER IMPLANT 01/2011 SKIN BIOPSY HX TONSILLECTOMY HX TOTAL ABDOMINAL HYSTERECT W/WO RMVL TUBE OVARY Hysterectomy, GAL Current Outpatient Medications Medication Sig spironolactone (ALDACTONE) 25 mg tablet Take 25 mg by mouth once daily. hydrALAZINE (APRESOLINE) 25 mg tablet Take 25 mg by mouth once daily. albuterol HFA (PROVENTIL HFA, VENTOLIN HFA) 90 mcg/actuation inhaler Inhale 2 Puffs as instructed every 4 hours as needed. LORazepam (ATIVAN) 0.5 mg Take 1 tablet by mouth two times a day as needed (anxiety attack). meloxicam (MOBIC) 15 mg tablet Take 1 tablet by mouth once daily. Take with food. fluticasone (FLOVENT) 110 mcg/actuation inhaler Inhale 1 Puff as instructed two times a day. Shake well before use. Rinse mouth after use. levothyroxine (SYNTHROID) 50 mcg tablet Take 1 tablet by mouth daily before breakfast. In the morning, Take on empty stomach at least 30 min before eating. For thyroid. PARoxetine (PAXIL) 20 mg tablet Take 1 tablet by mouth once daily. In the evening rosuvastatin (CRESTOR) 10 mg tablet Take 1 tablet by mouth daily at bedtime. guaiFENesin (MUCINEX) 600 mg 12 hr tablet Take 1 tablet by mouth two times a day as needed for cold/allergy symptoms. vitamin B complex (B COMPLEX 1 ORAL) Take by mouth. (Patient not taking: Reported on 10/14/2023) RESTASIS 0.05 % ophthalmic emulsion Azelastine HCl (OPTIVAR) 0.05 % ophthalmic solution hydroCHLOROthiazide (HYDRODIURIL, ESIDRIX) 12.5 mg capsule Take 2 capsules by mouth once daily. sucralfate (CARAFATE) 100 mg/mL suspension Take 10 mL by mouth four times daily. Cholecalciferol, Vitamin D3, 50 mcg (2,000 unit) cap Take 1 capsule by mouth once daily. (Patient not taking: Reported on 10/14/2023) aspirin, enteric coated (ASPIRIN, ENTERIC COATED) 81 mg EC tablet Take 81 mg by mouth once daily (more content not included)...[facility] [place] 03-01-2024 History of Present illness Narrative* Michael Puga, - 03/01/2024 10:32 PM EDT CC: Michael Meier is a 83 year old female who presents to the office for follow up HPI: Seen in office last in October , at that time Recently had URI end of August, she was Diagnosed with pneumonia and treated with IV antibiotics and breathing treatments and oxygen x 3 weeks into end of October. Recently she has started with another cough and chest congestion and feeling fatigued and worn out. She admits that prior to these infections starting, she hadn't been taking any of her vitamins or supplements at all. No fevers or chills. No vomiting or diarrhea. Had been taking some tylenol and mucinex only Hypothyroidism, hasn't been taking her levothyroxine medication but willing to restart this. She states I didn't think it was helping me at all so I stopped it. Currently Hypothyroidism, she has restarted the levothyroxine, does help fatigue symptoms. TSH was stable and improved at 1.6 with recent lab check at [employer] office in Jan at [facility], she is using her Bipap each night and feels that this has helped her fatigue and hypersomnolence during the day. Weakness, gait changes. Chronic low back pain, she has been to PHYSICAL THERAPY, she has been seen by pain mgmt. She wants to try to avoid having to go get injections in her spine again. She does feel that she needs a wheelchair though sometimes since if she has to stand or walk for a while she feels generalized lower leg and thigh weakness like I could fall. Otherwise she does use her cane. Chronic dyspnea, has been fully evaluated by [employer] whom doesn't feel this is due to cardiac cause, feels it is due to her COPD. She is willing to try a controller medication/inhaler, gets sometemporary relief with albuterol PAST MEDICAL HISTORY Diagnosis Date A-fib (HCC) Allergic rhinitis, cause unspecified Arrhythmia Arthritis Greater trochanteric bursitis of left hip Melanoma of skin, site unspecified 2003 back Osteoarthritis of left hip Other and unspecified hyperlipidemia Situational mixed anxiety and depressive disorder Sleep apnea Stroke (HCC) Unspecified essential hypertension Unspecified gastritis and gastroduodenitis PAST SURGICAL HISTORY Procedure Laterality Date ABDOMINAL SURGERY HX APPENDECTOMY HX ARTHRP ACETBLR/PROX FEM PROSTC AGRFT/ALGRFT 12/09/2003 right hip, redone, 07/2004 ARTHRP ACETBLR/PROX FEM PROSTC AGRFT/ALGRFT Left 07/2016 ARTHRP KNE CONDYLE&PLATU MEDIAL&LAT COMPARTMENTS 11/15/2009 Knee replacement, total -Left - [facility] ARTHRP KNE CONDYLE&PLATU MEDIAL&LAT COMPARTMENTS 12/30/2009 Right knee replaced COLONOSCOPY FLX DX W/COLLJ SPEC WHEN PFRMD 06/29/2017 Colonoscopy EGD 10/17/2020 EGD W/O [facility] SPEC VARICIES INJ 01/08/2022 ESOPHAGOGASTRODUODENOSCOPY TRANSORAL DIAGNOSTIC 11/29/2000 EGD ESOPHAGOGASTRODUODENOSCOPY TRANSORAL DIAGNOSTIC 06/29/2017 EGD JOINT REPLACEMENT HX LAPS SURG CHOLECYSTECTOMY W/CHOLANGIOGRAPHY PACEMAKER IMPLANT 01/2011 SKIN BIOPSY HX TONSILLECTOMY HX TOTAL ABDOMINAL HYSTERECT W/WO RMVL TUBE OVARY Hysterectomy, GAL Current Outpatient Medications Medication Sig spironolactone (ALDACTONE) 25 mg tablet Take 25 mg by mouth once daily. hydrALAZINE (APRESOLINE) 25 mg tablet Take 25 mg by mouth once daily. albuterol HFA (PROVENTIL HFA, VENTOLIN HFA) 90 mcg/actuation inhaler Inhale 2 Puffs as instructed every 4 hours as needed. LORazepam (ATIVAN) 0.5 mg Take 1 tablet by mouth two times a day as needed (anxiety attack). meloxicam (MOBIC) 15 mg tablet Take 1 tablet by mouth once daily. Take with food. fluticasone (FLOVENT) 110 mcg/actuation inhaler Inhale 1 Puff as instructed two times a day. Shake well before use. Rinse mouth after use. levothyroxine (SYNTHROID) 50 mcg tablet Take 1 tablet by mouth daily before breakfast. In the morning, Take on empty stomach at least 30 min before eating. For thyroid. PARoxetine (PAXIL) 20 mg tablet Take 1 tablet by mouth once daily. In the evening rosuvastatin (CRESTOR) 10 mg tablet Take 1 tablet by mouth daily at bedtime. guaiFENesin (MUCINEX) 600 mg 12 hr tablet Take 1 tablet by mouth two times a day as needed for cold/allergy symptoms. vitamin B complex (B COMPLEX 1 ORAL) Take by mouth. (Patient not taking: Reported on 10/14/2023) RESTASIS 0.05 % ophthalmic emulsion Azelastine HCl (OPTIVAR) 0.05 % ophthalmic solution hydroCHLOROthiazide (HYDRODIURIL, ESIDRIX) 12.5 mg capsule Take 2 capsules by mouth once daily. sucralfate (CARAFATE) 100 mg/mL suspension Take 10 mL by mouth four times daily. Cholecalciferol, Vitamin D3, 50 mcg (2,000 unit) cap Take 1 capsule by mouth once daily. (Patient not taking: Reported on 10/14/2023) aspirin, enteric coated (ASPIRIN, ENTERIC COATED) 81 mg EC tablet Take 81 mg by mouth once daily. PACERONE 200 mg tablet Take 200 mg by mouth once daily. ubidecarenone (COQ-10 ORAL) Take by mouth. (Patient not taking: Reported on 10/14/2023) diltiazem CD (CARDIZEM CD) 240 mg 24 hr capsule Take 1 capsule by mouth once daily. losartan (COZAAR) 100 mg tablet Take 1 tablet by mouth once daily. No current facility-administered medications for this visit. ALLERGIES Allergen Reactions Ciprofloxacin Rash Demerol [Meperidine* Vomiting Opioids - Morphine * Intolerance nausea, dizzy, sees things Opioids-Meperidine * nausea/vomiting Penicillin G hives Pravachol [Pravasta* Other: See Comments Leg cramps Sulfa (Sulfonamide * hives Vicodin [Hydrocodon* Intolerance dizzy,nausea,vomiting,headache Zithromax [Azithrom* Intolerance Social History Tobacco Use Smoking status: Never Smokeless tobacco: Never Vaping Use Vaping status: Never Used Substance Use Topics Alcohol use: Not Currently Comment: rarely Drug use: No ROS: See HPI PE: BP 144/80 Pulse 64 Temp (Src) 97.1 (Left Tympanic) Resp 20 Wt 223 lb (101.2kg) Gen: A&OX3, NAD, non-toxic appearing HEENT: PERRLA, EOMs intact b/l, nares without drainage, pharynx without erythema, exudate, lesions,or drainage. Uvula midline. Neck: No LAD, no thyromegaly, no meningismus. CV: RRR, no murmur Lungs: CTA b/l, no wheezing Skin: No rashes, lesions, or wounds on exposed skin. Gait instability, use of cane today in office Weakness b/l legs ASSESSMENT/PLAN: 1. Need for influenza vaccination - ICD9: V04.81, ICD10: Z23 (primary diagnosis) - INFLUENZA VACCINE, PRSV FREE, AGE 65+ YR, HIGH DOSE, TRIVALENT (FLUZONE HIGH-DOSE) 2. Anxiety - ICD9: 300.00, ICD10: F41.9 rx refilled, chronic, stable - LORAZEPAM 0.5 MG TABLET 3. Arthritis, multiple joint involvement - ICD9: 716.99, ICD10: M12.9 rx for wheelchair Trial of meloxicam - MELOXICAM 15 MG TABLET - STANDARD WHEELCHAIR 4. Epigastric abdominal pain - ICD9: 789.06, ICD10: R10.13 Long standing Need for routine follow up endoscopy - CONSULT TO GENERAL SURGERY 5. Obstructive lung disease (HCC) - ICD9: 496, ICD10: J44.9 Trial of inhaled steroid Continue prn albuterol Hx of COPD - FLUTICASONE PROPIONATE 110 MCG/ACTUATION HFA AEROSOL INHALER 6. Gait abnormality - ICD9: 781.2, ICD10: R26.9 - STANDARD WHEELCHAIR 7. Imbalance - ICD9: 781.2, ICD10: R26.89 - STANDARD WHEELCHAIR Michael Puga DO Return if no improvement. Follow up with Michael Puga DO. To ER if develops chest pain, shortness of breath. Discussed risks, benefits, alternatives, and potential side effects of medications. Patient/Guardian expressed understanding and agreed with the plan. See patient instructions. Michael Puga DO [address] [place] [address] [facility] NoteHNO ID: [id number] Author: SARAH MERCHANT PT Service: ? Author Type: Physical Therapist Type: Progress Notes Filed: 02/17/2024 16:59 Note Text: Episode Visit Count: 12 Therapist That Will Accept/Oversee The Plan Of Care: Marilee Merchant Start of Care Date: 11/15/23 Onset Date: 10/22/23 Plan of Care Certification Date: 01/18/24 Next Certification Due Date: 04/17/24 REHABILITATION AND SPORTS THERAPY PHYSICAL THERAPY PROGRESS REPORT PLAN OF CARE UPDATE: Assessment: Michael Meier demonstrates improvements in rising from a chair, walking, and physical activities. The patient has progressed toward goals. Patient continues to present with impairments in ADL's, balance, gait, overall function, and strength that interfere with walking, walking in the community, physical activities, recreational activities, stair negotiation, carrying . Current prognosis is Good due to: positive past response to therapy, good support system/ coping skills Fair due to: advanced age, chronic nature of impairments, limited tolerance to activity, clinical presentation . The patient will benefit from continued skilled therapy services to meet the updated goals for this plan of care as noted below. Goals for Episode of Care: created on 11/15/23 through 01/14/24, extended thru 04/17/24 [place] in home exercise program. Patient will demonstrate increase in B UE AND LE strength to 4+/5 during manual muscle testing in order to improve function for home management tasks and prior functional tasks. Patient will Improve Timed Up and Go to 12 seconds to demonstrate decreased risk of falling. Patient will improve 5 time sit to stand to demonstrate improvement in functional lower extremity strength. Patient will report no falls. Patient will demonstrate independent and proper use of assisstive device to allow for improved walking quality and safety therefore reducing the risk of falls. Patient Goals: I don't know why I'm here. I guess maybe to strengthen my legs Planned Interventions, Frequency, and Duration: 1x/week, Patient to be seen for Therapeutic exercise (31929), Neuromuscular re-education (85732), Therapeutic activities (35811), Self-senior care management (94950), Gait Training (12514), Patient/Family/Caregiver Education, General Conditioning PLAN FOR NEXT VISIT: continue to progress strength AND endurance, balance, gait AND overall mobility SUBJECTIVE: pt reports some improvement since starting PT. feels like her strength AND energy is better. would like to do some more PT. Functional Limitations: walking, walking in the community, physical activities, recreational activities, stair negotiation, carrying Pain: Pain Pain Level: 0 PROMIS Scales 01/18/2024 11/25/2023 Higher is Better Phys Func - Score 33 (moderate dysfunction) 35 (moderate dysfunction) Phys Func - Percentile 4 7 Self-Eff Symptom - Score 44 (Average) 50 (Average) Self-Eff Symptom - Percentile 27 50 T-scores: mean of general population = 50. 5 points is clinically meaningfully difference Percentiles provide an indication of how the patient's score ranks in relation to the general population. Higher percentile rankings indicate better function/quality of life. 50th percentile is the average of the general population and indicates half of respondents had a worse score. OBJECTIVE MEASURES WITH LEVEL OF FUNCTION: LE Strength Trunk Strength: ASLR 4+ to 5/5 R/L R Hip Flexion (L2): 5/5 R Hip ABduction: 3+/5 R Knee Extension (L3): 5/5 R Ankle Dorsiflexion (L4): 3-/5 R Ankle Eversion: 3+/5 L Hip Flexion (L2): 5/5 L Hip ABduction: 2+/5 (2+ to 3-/5) L Knee Extension (L3): 5/5 L Ankle Dorsiflexion (L4): 5/5 L Ankle Eversion: 5/5 Gait Gait Device: Cane General Deviations/Observations: Jennifer decreased, Step length decreased, Non-functional gait speed Gait Observation: improved gait but still reqires AD for gait stability d/t strength AND balance deficits Stairs: Supervision Stairs: 10 steps with HR AND cane non-reciprocal: ascends AND descends with R Functional Performance Test Results 5 Times Sit to Stand Test : 13.24 sec (from 17 chair without UE assist) Timed Up and Go (sec): 13.95 sec TREATMENT: Therapeutic Exercise: 1: Nu-step L4x5', L3x5' 2: bridging 20x 3: ASLR 2.5#R/L 15xea 4: s/l clamshell 2.5#L 20x 5: s/l hip ABd 20xR 6: shuttle leg press 1psfknUd3' (30 reps), SL 5bandsR/L 10xea 7: shuttle calf raises 5bandsB 15x 8: B calf stretch on slant board x1' 9: recheck - see objective for details, discussed progress AND deficits, 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 Skilled judgment was used in selection of appropriate interventions. Correct performance of therapeutic exercises was facilitated with verbal and visual cuing. Educated patient on rationale for performing exercises in rega (more content not included)...[facility]10-17-2024 History of Present illness Narrative* Sarah Merchant, PT - 02/17/2024 4:56 PM EDT Images from the original note were not included. Episode Visit Count: 12 Therapist That Will Accept/Oversee The Plan Of Care: Marilee Merchant Start of Care Date: 11/15/23 Onset Date: 10/22/23 Plan of Care Certification Date: 01/18/24 Next Certification Due Date: 04/17/24 REHABILITATION AND SPORTS THERAPY PHYSICAL THERAPY PROGRESS REPORT PLAN OF CARE UPDATE: Assessment: Michael Meier demonstrates improvements in rising from a chair, walking, and physical activities. The patient has progressed toward goals. Patient continues to present with impairments in ADL's, balance, gait, overall function, and strength that interfere with walking, walking in the community,physical activities, recreational activities, stair negotiation, carrying . Current prognosis is Good due to: positive past response to therapy, good support system/ coping skills Fair due to: advanced age, chronic nature of impairments, limited tolerance to activity, clinical presentation . The patient will benefit from continued skilled therapy services to meet the updated goals for this plan of care as noted below. Goals for Episode of Care: created on 11/15/23 through 01/14/24, extended thru 04/17/24 [place] in home exercise program. Patient will demonstrate increase in B UE & LE strength to 4+/5 during manual muscle testing in order to improve function for home management tasks and prior functional tasks. Patient will Improve Timed Up and Go to 12 seconds to demonstrate decreased risk of falling. Patient will improve 5 time sit to stand to demonstrate improvement in functional lower extremity strength. Patient will report no falls. Patient will demonstrate independent and proper use of assisstive device to allow for improved walking quality and safety therefore reducing the risk of falls. Patient Goals: I don't know why I'm here. I guess maybe to strengthen my legs Planned Interventions, Frequency, and Duration: 1x/week, Patient to be seen for Therapeutic exercise (51678), Neuromuscular re-education (46573), Therapeutic activities ([id number]), Self-senior care management (93607), Gait Training ([id number]), Patient/Family/Caregiver Education, General Conditioning PLAN FOR NEXT VISIT: continue to progress strength & endurance, balance, gait & overall mobility SUBJECTIVE: pt reports some improvement since starting PT. feels like her strength & energy is better. would like to do some more PT. Functional Limitations: walking, walking in the community, physical activities, recreational activities, stair negotiation, carrying Pain: Pain Pain Level: 0 PROMIS Scales 01/18/2024 11/25/2023 Higher is Better Phys Func - Score 33 (moderate dysfunction) 35 (moderate dysfunction) Phys Func - Percentile 4 7 Self-Eff Symptom - Score 44 (Average) 50 (Average) Self-Eff Symptom - Percentile 27 50 T-scores: mean of general population = 50. 5 points is clinically meaningfully difference Percentiles provide an indication of how the patient's score ranks in relation to the general population. Higher percentile rankings indicate better function/quality of life. 50th percentile is the average of the general population and indicates half of respondents had a worse score. OBJECTIVE MEASURES WITH LEVEL OF FUNCTION: LE Strength Trunk Strength: ASLR 4+ to 5/5 R/L R Hip Flexion (L2): 5/5 R Hip ABduction: 3+/5 R Knee Extension (L3): 5/5 R Ankle Dorsiflexion (L4): 3-/5 R Ankle Eversion: 3+/5 L Hip Flexion (L2): 5/5 L Hip ABduction: 2+/5 (2+ to 3-/5) L Knee Extension (L3): 5/5 L Ankle Dorsiflexion (L4): 5/5 L Ankle Eversion: 5/5 Gait Gait Device: Cane General Deviations/Observations: Jennifer decreased, Step length decreased, Non- functional gait speed Gait Observation: improved gait but still reqires AD for gait stability d/t strength & balance deficits Stairs: Supervision Stairs: 10 steps with HR & cane non-reciprocal: ascends & descends with R Functional Performance Test Results 5 Times Sit to Stand Test : 13.24 sec (from 17 chair without UE assist) Timed Up and Go (sec): 13.95 sec TREATMENT: Therapeutic Exercise: 1: Nu-step L4x5', L3x5' 2: bridging 20x 3: ASLR 2.5#R/L 15xea 4: s/l clamshell 2.5#L 20x 5: s/l hip ABd 20xR 6: shuttle leg press [id number]' (30 reps), SL 5bandsR/L 10xea 7: shuttle calf raises 5bandsB 15x 8: B calf stretch on slant board x1' 9: recheck - see objective for details, discussed progress & deficits, 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 Skilled judgment was used in selection of appropriate interventions. Correct performance of therapeutic exercises was facilitated with verbal and visual cuing. Educated patient on rationale for performing exercises in regards to improving fitness, including balance, increase ease of ADL, and ROM and function . Patient education as noted. PT in constant attendance during use of Nu-step to review current status, monitor effort throughoutactivity and adjust set up as needed for maximum therapeutic benefit. Gait Training: Stair Trainin steps with HR & SPC non-reciprocal: ascends & descends with R 1: gait activities with SPC SBA/S Skilled Intervention: Patient was provided stand by assist, supervision during pre-gait/gait training to prevent falls and insure safety. Education provided to patient regarding the proper sequence for stair negotiation. Billing Therapeutic Exercise Treatment Minutes: 50 Gait Training Treatment Minutes: 5 Skilled Treatment Time Minutes (timed and untimed codes): 55 Total Session Time (minutes): 56 Session Start Time : 1544 Session Stop Time : 1640 Sarah Merchant PT [facility] NoteHNO ID: [id number] Author: WILFRED MCCLELLAN PTA Service: ? Author Type: [employer] Ump[employer] Type: Progress Notes Filed: 02/14/2024 16:35 Note Text: Episode Visit Count: 11 Therapist That Will Accept/Oversee The Plan Of Care: Marilee Merchant Start of Care Date: 11/15/23 Onset Date: 10/22/23 Plan of Care Certification Date: 01/18/24 Next Certification Due Date: 04/17/24 Patient Identified by Name and Date of : Yes REHABILITATION AND SPORTS THERAPY PHYSICAL THERAPY TREATMENT NOTE ASSESSMENT: Michael Meier tolerated the session with fatigue and expected muscle soreness. She demonstrated difficulty with continued functional instability in bilateral glut medius with standing balance and gait. The patient will continue to benefit from ongoing skilled physical therapy to progress toward set goals. PLAN FOR NEXT VISIT: continue to progreess core and bilteral glut medius strength , also strengthen and increase weight bearing into ankles for increased stability and proprioception SUBJECTIVE: roly continues to report weakness in both hips especially with prolonged standing at kitchen sink Pain: Pain Pain Level: 0 Post Treatment Pain Post Treatment Pain Level: No Change OBJECTIVE MEASURES WITH LEVEL OF FUNCTION: TREATMENT: Therapeutic Exercise: 1: nu step seat 8 level 3 8 min nickerson tb at right knee 2: seated clamshell with abdominal brace purple tb 10 x 2 3: seated shoulder blade retraciopn 10 x 2 5 second hol d 4: supine abdominal brace with hip abduction bilateral le pink tb 10 x 5: hooklying with bilateal feet on red theraball hip extension and hip flexion vs manual resistance 10 x each 6: long sitting right /left ankle inversion/eversion green tb 10 x each 7: standing modified wider base of support tandem stance with 1 hand support opposite the leg that is back 10 seconds x 3 each Skilled Intervention: Patient was educated in proper exercise technique and purpose for exercises. Skilled judgment was used in selection of appropriate interventions. Billing Therapeutic Exercise Treatment Minutes: 42 Skilled Treatment Time Minutes (timed and untimed codes): 42 Total Session Time (minutes): 42 Session Start Time : 1322 Session Stop Time : 1404 [facility] History of Present illness Narrative* Wilfred Mcclellan PTA - 02/14/2024 4:33 PM EDT Episode Visit Count: 11 Therapist That Will Accept/Oversee The Plan Of Care: Marilee Merchant Start of Care Date: 11/15/23 Onset Date: 10/22/23 Plan of Care Certification Date: 01/18/24 Next Certification Due Date: 04/17/24 Patient Identified by Name and Date of : Yes REHABILITATION AND SPORTS THERAPY PHYSICAL THERAPY TREATMENT NOTE ASSESSMENT: Michael Meier tolerated the session with fatigue and expected muscle soreness. She demonstrated difficulty with continued functional instability in bilateral glut medius with standingbalance and gait. The patient will continue to benefit from ongoing skilled physical therapy to progress toward set goals. PLAN FOR NEXT VISIT: continue to progreess core and bilteral glut medius strength , also strengthen and increase weight bearing into ankles for increased stability and proprioception SUBJECTIVE: roly continues to report weakness in both hips especially with prolonged standing atkitchen sink Pain: Pain Pain Level: 0 Post Treatment Pain Post Treatment Pain Level: No Change OBJECTIVE MEASURES WITH LEVEL OF FUNCTION: TREATMENT: Therapeutic Exercise: 1: nu step seat 8 level 3 8 min nickerson tb at right knee 2: seated clamshell with abdominal brace purple tb 10 x 2 3: seated shoulder blade retraciopn 10 x 2 5 second hol d 4: supine abdominal brace with hip abduction bilateral le pink tb 10 x 5: hooklying with bilateal feet on red theraball hip extension and hip flexion vs manual [id number] x each 6: long sitting right /left ankle inversion/eversion green tb 10 x each 7: standing modified wider base of support tandem stance with 1 hand support opposite the leg that is back 10 seconds x 3 each Skilled Intervention: Patient was educated in proper exercise technique and purpose for exercises. Skilled judgment was used in selection of appropriate interventions. Billing Therapeutic Exercise Treatment Minutes: 42 Skilled Treatment Time Minutes (timed and untimed codes): 42 Total Session Time (minutes): 42 Session Start Time : 1322 Session Stop Time : 1404 Wilfred Mcclellan PTA [facility]24 NoteHNO ID: [id number] Author: SARAH MERCHANT PT Service: ? Author Type: Physical Therapist Type: Progress Notes Filed: 02/10/2024 18:06 Note Text: Episode Visit Count: 10 Therapist That Will Accept/Oversee The Plan Of Care: Marilee Merchant Start of Care Date: 11/15/23 Onset Date: 10/22/23 Plan of Care Certification Date: 01/18/24 Next Certification Due Date: 04/17/24 REHABILITATION AND SPORTS THERAPY PHYSICAL THERAPY TREATMENT NOTE ASSESSMENT: Michael Meier tolerated the session with decreased endurance. She demonstrated difficulty with B hip weakness and intermittent low back pain. The patient will continue to benefit from ongoing skilled physical therapy to progress toward set goals. PLAN FOR NEXT VISIT: continue to progress strength AND endurance, gait AND balance SUBJECTIVE: pt says R groin is feeling better. had LBP after last session for 2 days but feels better now Pain: Pain Pain Level: 0 OBJECTIVE MEASURES WITH LEVEL OF FUNCTION: Gait Gait Device: Cane Stairs: Supervision Stairs: 10 steps with HR AND cane non-reciprocal: ascends AND descends with R TREATMENT: Therapeutic Exercise: 1: Nu-step L3x10' seat 8 2: shuttle leg press [id number]', [id number], SL 4bands R/L 20xea 3: shuttle calf raises [id number] 4: B calf stretch on slant board x'1' 5: standing hip ABd with B UE spt 10xR/L 6: standing hip Abd with 1 UE spt 5xL, unable R (d/t L hip weakness) 7: standing hip ext with orange TB 10xR/L 8: bridging 20x, with green TB 10x 9: ASLR 10xR/L 10: s/l hip ABd 10x2R partial, unable L 11: supine hip ABd with pink TB 10xR/L Skilled Intervention: Patient was educated in proper exercise technique and purpose for exercises. Skilled judgment was used in selection of appropriate interventions. Correct performance of therapeutic exercises was facilitated with verbal, visual, and tactile cuing. Educated patient on rationale for performing exercises in regards to improving fitness, increase ease of ADL, and ROM and function . Patient education as noted. PT in constant attendance during use of Nu-step to review current status, monitor effort throughout activity and adjust set up as needed for maximum therapeutic benefit. Gait Training: Stair Trainin steps with HR AND SPC non-reciprocal: ascends AND descends with R 1: gait activities with SPC SBA/S Skilled Intervention: Patient was provided stand by assist, supervision during pre-gait/gait training to prevent falls and insure safety. Skilled judgment used to assess selection and proper use of assistive device. Education provided to patient regarding the proper sequence for stair negotiation. Billing Therapeutic Exercise Treatment Minutes: 46 Gait Training Treatment Minutes: 7 Skilled Treatment Time Minutes (timed and untimed codes): 53 Total Session Time (minutes): 53 Session Start Time : 1241 Session Stop Time : 1334 [facility] of Present illness Narrative* Sarah Merchant, PT - 02/10/2024 6:02 PM EDT Episode Visit Count: 10 Therapist That Will Accept/Oversee The Plan Of Care: Marilee Merchant Start of Care Date: 11/15/23 Onset Date: 10/22/23 Plan of Care Certification Date: 01/18/24 Next Certification Due Date: 04/17/24 REHABILITATION AND SPORTS THERAPY PHYSICAL THERAPY TREATMENT NOTE ASSESSMENT: Michael Meier tolerated the session with decreased endurance. She demonstrated difficulty with B hip weakness and intermittent low back pain. The patient will continue to benefit fromongoing skilled physical therapy to progress toward set goals. PLAN FOR NEXT VISIT: continue to progress strength & endurance, gait & balance SUBJECTIVE: pt says R groin is feeling better. had LBP after last session for 2 days but feels better now Pain: Pain Pain Level: 0 OBJECTIVE MEASURES WITH LEVEL OF FUNCTION: Gait Gait Device: Cane Stairs: Supervision Stairs: 10 steps with HR & cane non-reciprocal: ascends & descends with R TREATMENT: Therapeutic Exercise: 1: Nu-step L3x10' seat 8 2: shuttle leg press [id number]', [id number], SL 4bands R/L 20xea 3: shuttle calf raises [id number] 4: B calf stretch on slant board x'1' 5: standing hip ABd with B UE spt 10xR/L 6: standing hip Abd with 1 UE spt 5xL, unable R (d/t L hip weakness) 7: standing hip ext with orange TB 10xR/L 8: bridging 20x, with green TB 10x 9: ASLR 10xR/L 10: s/l hip ABd 10x2R partial, unable L 11: supine hip ABd with pink TB 10xR/L Skilled Intervention: Patient was educated in proper exercise technique and purpose for exercises. Skilled judgment was used in selection of appropriate interventions. Correct performance of therapeutic exercises was facilitated with verbal, visual, and tactile cuing. Educated patient on rationale for performing exercises in regards to improving fitness, increase ease of ADL, and ROM and function . Patient education as noted. PT in constant attendance during use of Nu-step to review current status, monitor effort throughoutactivity and adjust set up as needed for maximum therapeutic benefit. Gait Training: Stair Trainin steps with HR & SPC non-reciprocal: ascends & descends with R 1: gait activities with SPC SBA/S Skilled Intervention: Patient was provided stand by assist, supervision during pre-gait/gait training to prevent falls and insure safety. Skilled judgment used to assess selection and proper use of assistive device. Education provided to patient regarding the proper sequence for stair negotiation. Billing Therapeutic Exercise Treatment Minutes: 46 Gait Training Treatment Minutes: 7 Skilled Treatment Time Minutes (timed and untimed codes): 53 Total Session Time (minutes): 53 Session Start Time : 1241 Session Stop Time : 1334 Sarah Merchant PT [facility]10-[facility]24 NoteHNO ID: [id number] Author: SARAH MERCHANT, PT Service: ? Author Type: Physical Therapist Type: Progress Notes Filed: 02/07/2024 15:18 Note Text: Episode Visit Count: 9 Therapist That Will Accept/Oversee The Plan Of Care: Marilee Merchant Start of Care Date: 11/15/23 Onset Date: 10/22/23 Plan of Care Certification Date: 01/18/24 Next Certification Due Date: 04/17/24 REHABILITATION AND SPORTS THERAPY PHYSICAL THERAPY TREATMENT NOTE ASSESSMENT: Michael Meier tolerated the session with decreased activity tolerance due to weakness and R groin pain of unknown etiology (possible hip flexor strain). She demonstrated difficulty with R groin pain and B hip weakness. The patient will continue to benefit from ongoing skilled physical therapy to progress toward set goals. PLAN FOR NEXT VISIT: continue to progress B hip AND core strength, gait stability AND endurance, overall activity tolerance. monitor R groin pain SUBJECTIVE: pt reports some R LE/thigh pain after last session, otherwise denies any pain today although she reported R hip AND groin pain while doing LE exercises. pt also c/o pain in LB region when rolling or laying on L side. pt thinks she needs to do more PT to improve her strength AND endurance. Pt plans to put ice on her R groin AND thigh. Pain: Pain Pain Location: Groin - Right Frequency: Intermittent Detailed Pain Score: Yes Worst Pain Level: 8 OBJECTIVE MEASURES WITH LEVEL OF FUNCTION: LE Strength Trunk Strength: ASLR 4+/5R, 4/5L R Hip ABduction: 3/5 (limited by pain AND weakness) L Hip ABduction: 2+/5 (2+ to 3-/5) TREATMENT: Therapeutic Exercise: 1: Nu-step L3x10' seat 8 2: shuttle leg press [id number]', SL 4bands R/L 20xea 3: shuttle calf raises [id number] 4: ASLR 2#L/R 20xea 5: supine hip Abd with pink TB 10xR/L 6: s/l hip ABd 5xR (limited by R groin pain) 7: s/l hip flexor stretch 8: bridging 20x Skilled Intervention: Patient was educated in proper exercise technique and purpose for exercises. Skilled judgment was used in selection of appropriate interventions. Correct performance of therapeutic exercises was facilitated with verbal and visual cuing. Educated patient on rationale for performing exercises in regards to improving fitness, increase ease of ADL, and ROM and function . Manual Therapy: 1: STM to psoas/quad in supine 2: STM to L QL in R s/l Skilled Intervention: Manual skills to improve joint mobility, ROM, and decrease pain. Utilized anatomy knowledge of the therapist, and assessment of patient's response to intervention. PT in constant attendance during use of Nu-step to review current status, monitor effort throughout activity and adjust set up as needed for maximum therapeutic benefit. Therapeutic Activity: 1: sit to stands from mat table without UE assist 5x 2: standing wt-shifts, WBing thru R LE Skilled Intervention: Educated on proper/safe technique for activities performed today. Activity progression based on professional judgment. Gait Trainin: gait activities with SPC SBA/S Skilled Intervention: Patient was provided stand by assist, supervision during pre-gait/gait training to prevent falls and insure safety. Skilled judgment used to assess selection of assistive device. Billing Therapeutic Exercise Treatment Minutes: 45 Manual TherapyTreatment Minutes: 5 Therapeutic Activity Treatment Minutes: 5 Gait Training Treatment Minutes: 4 Skilled Treatment Time Minutes (timed and untimed codes): 59 Total Session Time (minutes): 59 Session Start Time : 1358 Session Stop Time : 1457 [facility] History of Present illness Narrative* Sarah Merchant, PT - 02/07/2024 3:14 PM EDT Episode Visit Count: 9 Therapist That Will Accept/Oversee The Plan Of Care: Marilee Merchant Start of Care Date: 11/15/23 Onset Date: 10/22/23 Plan of Care Certification Date: 01/18/24 Next Certification Due Date: 04/17/24 REHABILITATION AND SPORTS THERAPY PHYSICAL THERAPY TREATMENT NOTE ASSESSMENT: Michael Meier tolerated the session with decreased activity tolerance due to weakness and R groin pain of unknown etiology (possible hip flexor strain). She demonstrated difficulty with R groin pain and B hip weakness. The patient will continue to benefit from ongoing skilled physical therapy to progress toward set goals. PLAN FOR NEXT VISIT: continue to progress B hip & core strength, gait stability & endurance, overall activity tolerance. monitor R groin pain SUBJECTIVE: pt reports some R LE/thigh pain after last session, otherwise denies any pain today although she reported R hip & groin pain while doing LE exercises. pt also c/o pain in LB region when rolling or laying on L side. pt thinks she needs to do more PT to improve her strength & endurance. Pt plans to put ice on her R groin & thigh. Pain: Pain Pain Location: Groin - Right Frequency: Intermittent Detailed Pain Score: Yes Worst Pain Level: 8 OBJECTIVE MEASURES WITH LEVEL OF FUNCTION: LE Strength Trunk Strength: ASLR 4+/5R, 4/5L R Hip ABduction: 3/5 (limited by pain & weakness) L Hip ABduction: 2+/5 (2+ to 3-/5) TREATMENT: Therapeutic Exercise: 1: Nu-step L3x10' seat 8 2: shuttle leg press [id number]', SL 4bands R/L 20xea 3: shuttle calf raises [id number] 4: ASLR 2#L/R 20xea 5: supine hip Abd with pink TB 10xR/L 6: s/l hip ABd 5xR (limited by R groin pain) 7: s/l hip flexor stretch 8: bridging 20x Skilled Intervention: Patient was educated in proper exercise technique and purpose for exercises. Skilled judgment was used in selection of appropriate interventions. Correct performance of therapeutic exercises was facilitated with verbal and visual cuing. Educated patient on rationale for performing exercises in regards to improving fitness, increase ease of ADL, and ROM and function . Manual Therapy: 1: STM to psoas/quad in supine 2: STM to L QL in R s/l Skilled Intervention: Manual skills to improve joint mobility, ROM, and decrease pain. Utilized anatomy knowledge of the therapist, and assessment of patient's response to intervention. PT in constant attendance during use of Nu-step to review current status, monitor effort throughoutactivity and adjust set up as needed for maximum therapeutic benefit. Therapeutic Activity: 1: sit to stands from mat table without UE assist 5x 2: standing wt-shifts, WBing thru R LE Skilled Intervention: Educated on proper/safe technique for activities performed today. Activity progression based on professional judgment. Gait Trainin: gait activities with SPC SBA/S Skilled Intervention: Patient was provided stand by assist, supervision during pre-gait/gait training to prevent falls and insure safety. Skilled judgment used to assess selection of assistive device. Billing Therapeutic Exercise Treatment Minutes: 45 Manual TherapyTreatment Minutes: 5 Therapeutic Activity Treatment Minutes: 5 Gait Training Treatment Minutes: 4 Skilled Treatment Time Minutes (timed and untimed codes): 59 Total Session Time (minutes): 59 Session Start Time : 1358 Session Stop Time : 1457 Sarah Merchant PT documented [facility]09-30-[facility]24 NoteHNO ID: [id number] Author: SARAH MERCHANT PT Service: ? Author Type: Physical Therapist Type: Progress Notes Filed: 01/31/2024 15:24 Note Text: Episode Visit Count: 8 Therapist That Will Accept/Oversee The Plan Of Care: Marilee Merchant Start of Care Date: 11/15/23 Onset Date: 10/22/23 Plan of Care Certification Date: 01/18/24 Next Certification Due Date: 04/17/24 REHABILITATION AND SPORTS THERAPY PHYSICAL THERAPY TREATMENT NOTE ASSESSMENT: Michael Meier tolerated the session with decreased endurance. She demonstrated difficulty with continued LE weakness but improvements in R hip strength. The patient will continue to benefit from ongoing skilled physical therapy to progress toward set goals. PLAN FOR NEXT VISIT: continue to address B hip AND core strength, gait stability AND endurance, overall activity tolerance SUBJECTIVE: pt says she was less tired last week when she came to to PT with cane vs WW Pain: Pain Pain Level: 0 OBJECTIVE MEASURES WITH LEVEL OF FUNCTION: LE Strength Trunk Strength: ASLR 4/5R, 4-/5L R Hip ABduction: 3/5 (3 to 3+/5) R Ankle Dorsiflexion (L4): 3-/5 L Hip ABduction: 2+/5 Gait Gait Device: Cane (on R) TREATMENT: Therapeutic Exercise: 1: sit to stands from mat table without UE assist 5x 2: bridging 10x 3: ASLR 2# 15xR/L 4: s/l hip ABd 2#R 15x 5: supine hip ABd with pink TB above thigh 15x, with pink TB at ankles 15x 6: shuttle leg press [id number]', SL 6 [id number], [id number], [id number] 7: shuttle calf raises [id number] 8: Nu-step L3x10' seat 8 Skilled Intervention: Patient was educated in proper exercise technique and purpose for exercises. Skilled judgment was used in selection of appropriate interventions. Correct performance of therapeutic exercises was facilitated with verbal and visual cuing. Educated patient on rationale for performing exercises in regards to improving fitness, including balance, increase ease of ADL, and ROM and function . Patient education as noted. PT in constant attendance during use of Nu-step to review current status, monitor effort throughout activity and adjust set up as needed for maximum therapeutic benefit. Gait Trainin: gait with SPC R vs L, lowered cane height 1 notch. advised continued use of cane on R or WW (increased antalgia AND unsteady gait with cane on L d/t L hip weakness) Skilled Intervention: Facilitated proper gait cycle with the use of verbal and visual cues for correction of gait deviations identified in the objective section above. Skilled judgment used to assess selection, proper sizing, and proper use of assistive device. Billing Therapeutic Exercise Treatment Minutes: 45 Gait Training Treatment Minutes: 5 Skilled Treatment Time Minutes (timed and untimed codes): 50 Total Session Time (minutes): 50 Session Start Time : 1422 Session Stop Time : 1512 [facility] Present illness Narrative* Sarah Merchant, PT - 01/31/2024 3:19 PM EDT Episode Visit Count: 8 Therapist That Will Accept/Oversee The Plan Of Care: Marilee Merchant Start of Care Date: 11/15/23 Onset Date: 10/22/23 Plan of Care Certification Date: 01/18/24 Next Certification Due Date: 04/17/24 REHABILITATION AND SPORTS THERAPY PHYSICAL THERAPY TREATMENT NOTE ASSESSMENT: Michael Meier tolerated the session with decreased endurance. She demonstrated difficulty with continued LE weakness but improvements in R hip strength. The patient will continue to benefit from ongoing skilled physical therapy to progress toward set goals. PLAN FOR NEXT VISIT: continue to address B hip & core strength, gait stability & endurance, overall activity tolerance SUBJECTIVE: pt says she was less tired last week when she came to to PT with cane vs WW Pain: Pain Pain Level: 0 OBJECTIVE MEASURES WITH LEVEL OF FUNCTION: LE Strength Trunk Strength: ASLR 4/5R, 4-/5L R Hip ABduction: 3/5 (3 to 3+/5) R Ankle Dorsiflexion (L4): 3-/5 L Hip ABduction: 2+/5 Gait Gait Device: Cane (on R) TREATMENT: Therapeutic Exercise: 1: sit to stands from mat table without UE assist 5x 2: bridging 10x 3: ASLR 2# 15xR/L 4: s/l hip ABd 2#R 15x 5: supine hip ABd with pink TB above thigh 15x, with pink TB at ankles 15x 6: shuttle leg press [id number]', SL 6 [id number], [id number], [id number] 7: shuttle calf raises [id number] 8: Nu-step L3x10' seat 8 Skilled Intervention: Patient was educated in proper exercise technique and purpose for exercises. Skilled judgment was used in selection of appropriate interventions. Correct performance of therapeutic exercises was facilitated with verbal and visual cuing. Educated patient on rationale for performing exercises in regards to improving fitness, including balance, increase ease of ADL, and ROM and function . Patient education as noted. PT in constant attendance during use of Nu-step to review current status, monitor effort throughoutactivity and adjust set up as needed for maximum therapeutic benefit. Gait Trainin: gait with SPC R vs L, lowered cane height 1 notch. advised continued use of cane on R or WW (increased antalgia & unsteady gait with cane on L d/t L hip weakness) Skilled Intervention: Facilitated proper gait cycle with the use of verbal and visual cues for correction of gait deviations identified in the objective section above. Skilled judgment used to assess selection, proper sizing, and proper use of assistive device. Billing Therapeutic Exercise Treatment Minutes: 45 Gait Training Treatment Minutes: 5 Skilled Treatment Time Minutes (timed and untimed codes): 50 Total Session Time (minutes): 50 Session Start Time : 1422 Session Stop Time : 1512 Sarah Merchant PT [facility] NoteHNO ID: [id number] Author: WILFRED MCCLELLAN PTA Service: ? Author Type: [employer] Ump[employer] Type: Progress Notes Filed: 01/26/2024 18:32 Note Text: Episode Visit Count: 7 Therapist That Will Accept/Oversee The Plan Of Care: Marilee Merchant Start of Care Date: 11/15/23 Onset Date: 10/22/23 Plan of Care Certification Date: 01/18/24 Next Certification Due Date: 04/17/24 Patient Identified by Name and Date of : Yes REHABILITATION AND SPORTS THERAPY PHYSICAL THERAPY TREATMENT NOTE ASSESSMENT: Michael Meier tolerated the session with fatigue and expected muscle soreness. She demonstrated difficulty with static standing balance at both ankles and hips . The patient will continue to benefit from ongoing skilled physical therapy to progress toward set goals. PLAN FOR NEXT VISIT: address global endurance bilateral ankle and glut strength and stabiity, be aawre of right foot drop and righta LLD SUBJECTIVE: patient reports less fatigue today also reports police booking officer increased her potassium , patient reports increased fatigue with gait with rolling walker ,uses platform walker at home Pain: Pain Pain Level: 0 Post Treatment Pain Post Treatment Pain Level: No Change OBJECTIVE MEASURES WITH LEVEL OF FUNCTION: TREATMENT: Therapeutic Exercise: 1: nu step level 4 - 2 ue/le 8 min reviewed potassium affect on muscle contraciton 2: long sitting manual calf and heel cord stretch right /left 30 second hold x 3 3: long sitting ankle inversion /eversion orange tb 10 x 2 each 4: long sitting hip abduction pink tb at knees 10 x 2 right /left 5: standing weight shift right <=> left with cane in right hand and mat behind patient Skilled Intervention: Patient was educated in proper exercise technique and purpose for exercises. Skilled judgment was used in selection of appropriate interventions. Billing Therapeutic Exercise Treatment Minutes: 40 Skilled Treatment Time Minutes (timed and untimed codes): 40 Total Session Time (minutes): 40 Session Start Time : 1520 Session Stop Time : 1600 [facility] History of Present illness Narrative* Wilfred Mcclellan PTA - 01/26/2024 6:30 PM EDT Episode Visit Count: 7 Therapist That Will Accept/Oversee The Plan Of Care: Marilee Merchant Start of Care Date: 11/15/23 Onset Date: 10/22/23 Plan of Care Certification Date: 01/18/24 Next Certification Due Date: 04/17/24 Patient Identified by Name and Date of : Yes REHABILITATION AND SPORTS THERAPY PHYSICAL THERAPY TREATMENT NOTE ASSESSMENT: Michael Meier tolerated the session with fatigue and expected muscle soreness. She demonstrated difficulty with static standing balance at both ankles and hips . The patient will continue to benefit from ongoing skilled physical therapy to progress toward set goals. PLAN FOR NEXT VISIT: address global endurance bilateral ankle and glut strength and stabiity, be aawre of right foot drop and righta LLD SUBJECTIVE: patient reports less fatigue today also reports police booking officer increased her potassium , patient reports increased fatigue with gait with rolling walker ,uses platform walker at home Pain: Pain Pain Level: 0 Post Treatment Pain Post Treatment Pain Level: No Change OBJECTIVE MEASURES WITH LEVEL OF FUNCTION: TREATMENT: Therapeutic Exercise: 1: nu step level 4 - 2 ue/le 8 min reviewed potassium affect on muscle contraciton 2: long sitting manual calf and heel cord stretch right /left 30 second hold x 3 3: long sitting ankle inversion /eversion orange tb 10 x 2 each 4: long sitting hip abduction pink tb at knees 10 x 2 right /left 5: standing weight shift right <=> left with cane in right hand and mat behind patient Skilled Intervention: Patient was educated in proper exercise technique and purpose for exercises. Skilled judgment was used in selection of appropriate interventions. Billing Therapeutic Exercise Treatment Minutes: 40 Skilled Treatment Time Minutes (timed and untimed codes): 40 Total Session Time (minutes): 40 Session Start Time : 1520 Session Stop Time : 1600 Wilfred Mcclellan PTA documented [facility]24 NoteHNO ID: [id number] Author: SARAH MERCHANT PT Service: ? Author Type: Physical Therapist Type: Progress Notes Filed: 01/18/2024 16:08 Note Text: Episode Visit Count: 6 Therapist That Will Accept/Oversee The Plan Of Care: Marilee Merchant Start of Care Date: 11/15/23 Onset Date: 10/22/23 Plan of Care Certification Date: 01/18/24 Next Certification Due Date: 04/17/24 Patient Identified by Name and Date of : Yes REHABILITATION AND SPORTS THERAPY PHYSICAL THERAPY PROGRESS REPORT PLAN OF CARE UPDATE: Assessment: Michael Meier demonstrates minimal improvement in rising from a chair, standing, walking, and physical activities. She has progressed toward goals. Patient continues to present with impairments in ADL's, balance, gait, overall function, strength, and symptom management that interfere with walking, stair negotiation, heavy exertion, lifting, physical activities, recreational activities, kneeling, carrying, squatting . Current prognosis is Fair due to: advanced age, chronic nature of impairments, limited tolerance to activity, clinical presentation, multiple co- morbidities . Pt remains limited by impaired strength, balance AND endurance with impaired mobility AND safety and moderate fall risk. She will benefit from continued skilled therapy services to meet the updated goals for this plan of care as noted below. Goals for Episode of Care: created on 11/15/23 through 01/14/24, extended thru 04/17/24 [place] in home exercise program. Patient will demonstrate increase in B UE AND LE strength to 4+/5 during manual muscle testing in order to improve function for home management tasks and prior functional tasks. Patient will Improve Timed Up and Go to 12 seconds to demonstrate decreased risk of falling. Patient will improve 5 time sit to stand to demonstrate improvement in functional lower extremity strength. Patient will report no falls. Patient will demonstrate independent and proper use of assisstive device to allow for improved walking quality and safety therefore reducing the risk of falls. Patient Goals: I don't know why I'm here. I guess maybe to strengthen my legs Planned Interventions, Frequency, and Duration: 2x/week, 12 weeks Patient to be seen for Therapeutic exercise (70375), Neuromuscular re-education (03126), Therapeutic activities (41319), Self-senior care management (46255), Gait Training (52993), Patient/Family/Caregiver Education, General Conditioning PLAN FOR NEXT VISIT: continue to progress LE strength, balance, gait AND endurance SUBJECTIVE: pt reports continued balance deficits. fell at home on Wednesday, squad had to come help get her up (after she alerted her lifeline device) but she denies injury, refused transport to hospital. pt reports ~ 4 falls in the past year, says she can't get up herself if she falls. she c/o general weakness AND SOB with activity. has f/u with police booking officer this month AND PCP next month. says she gets very tired walking with WW. walks with higher rollator walker at home which seems better. Pt says she missed a few weeks of PT because her street was getting paved. Functional Limitations: walking, stair negotiation, heavy exertion, lifting, physical activities, recreational activities, kneeling, carrying, squatting Pain: Pain Pain Level: 0 Pain Location: Back Frequency: Intermittent PROMIS Scales 01/18/2024 11/25/2023 Higher is Better Phys Func - Score 33 (moderate dysfunction) 35 (moderate dysfunction) Phys Func - Percentile 4 7 Self-Eff Symptom - Score 44 (Average) 50 (Average) Self-Eff Symptom - Percentile 27 50 T-scores: mean of general population = 50. 5 points is clinically meaningfully difference Percentiles provide an indication of how the patient's score ranks in relation to the general population. Higher percentile rankings indicate better function/quality of life. 50th percentile is the average of the general population and indicates half of respondents had a worse score. OBJECTIVE MEASURES WITH LEVEL OF FUNCTION: LE Strength R Hip Flexion (L2): 4+/5 R Hip ABduction: 3-/5 R Knee Extension (L3): 5/5 R Ankle Dorsiflexion (L4): 3-/5 L Hip Flexion (L2): 4+/5 L Hip ABduction: 2+/5 L Knee Extension (L3): 5/5 L Ankle Dorsiflexion (L4): 5/5 Gait Gait Device: Wheeled Walker Balance Static Standing Balance: Comments Static Standing Balance Comments: Fair/Fair- (difficulty with post perturbation AND LOB) Narrow Base of Support: Fair- TREATMENT: Therapeutic Exercise: 1: Nu-step L4x8' 4' UE/LE, 4' LEs only 2: *s/l hip ABd with orange TB 10xR, unable L 3: *supine hip ABd with orange TB 20xL, 10xR 4: seated/supine ankle DF AROM/AAROM 5: recheck - see objective for details, discussed progress AND deficits, plans for PT 6: discussed fatigue AND SOB. advised f/u with PCP, police booking officer, tin whiz machine operator prn Skilled Intervention: Patient was educated in proper exer (more content not included)...[facility] History of Present illness Narrative* Sarah Merchant, PT - 01/18/2024 3:57 PM EDT Images from the original note were not included. Episode Visit Count: 6 Therapist That Will Accept/Oversee The Plan Of Care: Marilee Merchant Start of Care Date: 11/15/23 Onset Date: 10/22/23 Plan of Care Certification Date: 01/18/24 Next Certification Due Date: 04/17/24 Patient Identified by Name and Date of : Yes REHABILITATION AND SPORTS THERAPY PHYSICAL THERAPY PROGRESS REPORT PLAN OF CARE UPDATE: Assessment: Michael Meier demonstrates minimal improvement in rising from a chair, standing, walking, and physical activities. She has progressed toward goals. Patient continues to present with impairments in ADL's, balance, gait, overall function, strength, and symptom management that interfere with walking, stair negotiation, heavy exertion, lifting, physical activities, recreational activities, kneeling, carrying, squatting . Current prognosis is Fair due to: advanced age, chronic nature of impairments, limited tolerance to activity, clinical presentation, multiple co- morbidities . Pt remains limited by impaired strength, balance & endurance with impaired mobility & safety and moderate fall risk. She will benefit from continued skilled therapy services to meet the updated goals for this plan of care as noted below. Goals for Episode of Care: created on 11/15/23 through 01/14/24, extended thru 04/17/24 [place] in home exercise program. Patient will demonstrate increase in B UE & LE strength to 4+/5 during manual muscle testing in order to improve function for home management tasks and prior functional tasks. Patient will Improve Timed Up and Go to 12 seconds to demonstrate decreased risk of falling. Patient will improve 5 time sit to stand to demonstrate improvement in functional lower extremity strength. Patient will report no falls. Patient will demonstrate independent and proper use of assisstive device to allow for improved walking quality and safety therefore reducing the risk of falls. Patient Goals: I don't know why I'm here. I guess maybe to strengthen my legs Planned Interventions, Frequency, and Duration: 2x/week, 12 weeks Patient to be seen for Therapeutic exercise (71842), Neuromuscular re-education (79364), Therapeutic activities (31036), Self-senior care management (45852), Gait Training (73300), Patient/Family/Caregiver Education, General Conditioning PLAN FOR NEXT VISIT: continue to progress LE strength, balance, gait & endurance SUBJECTIVE: pt reports continued balance deficits. fell at home on Wednesday, squad had to come help get her up (after she alerted her lifeline device) but she denies injury, refused transport to hospital. pt reports ~ 4 falls in the past year, says she can't get up herself if she falls. she c/o general weakness & SOB with activity. has f/u with police booking officer this month & PCP next month. sayvalerie gets very tired walking with WW. walks with higher rollator walker at home which seems better. Pt says she missed a few weeks of PT because her street was getting paved. Functional Limitations: walking, stair negotiation, heavy exertion, lifting, physical activities, recreational activities, kneeling, carrying, squatting Pain: Pain Pain Level: 0 Pain Location: Back Frequency: Intermittent PROMIS Scales 01/18/2024 11/25/2023 Higher is Better Phys Func - Score 33 (moderate dysfunction) 35 (moderate dysfunction) Phys Func - Percentile 4 7 Self-Eff Symptom - Score 44 (Average) 50 (Average) Self-Eff Symptom - Percentile 27 50 T-scores: mean of general population = 50. 5 points is clinically meaningfully difference Percentiles provide an indication of how the patient's score ranks in relation to the general population. Higher percentile rankings indicate better function/quality of life. 50th percentile is the average of the general population and indicates half of respondents had a worse score. OBJECTIVE MEASURES WITH LEVEL OF FUNCTION: LE Strength R Hip Flexion (L2): 4+/5 R Hip ABduction: 3-/5 R Knee Extension (L3): 5/5 R Ankle Dorsiflexion (L4): 3-/5 L Hip Flexion (L2): 4+/5 L Hip ABduction: 2+/5 L Knee Extension (L3): 5/5 L Ankle Dorsiflexion (L4): 5/5 Gait Gait Device: Wheeled Walker Balance Static Standing Balance: Comments Static Standing Balance Comments: Fair/Fair- (difficulty with post perturbation & LOB) Narrow Base of Support: Fair- TREATMENT: Therapeutic Exercise: 1: Nu-step L4x8' 4' UE/LE, 4' LEs only 2: *s/l hip ABd with orange TB 10xR, unable L 3: *supine hip ABd with orange TB 20xL, 10xR 4: seated/supine ankle DF AROM/AAROM 5: recheck - see objective for details, discussed progress & deficits, plans for PT 6: discussed fatigue & SOB. advised f/u with PCP, police booking officer, tin whiz machine operator prn Skilled Intervention: Patient was educated in proper exercise technique and purpose for exercises. Reviewed and educated patient on additions/changes for home exercise program as above (*). Skilled judgment was used in selection of appropriate interventions. Correct performance of therapeutic exercises was facilitated with verbal and visual cuing. Educated patient on rationale for performing exercises in regards to improving fitness, including balance, increase ease of ADL, and ROM and function . Patient education as noted. PT in constant attendance during use of Nu-step to review current status, monitor effort throughoutactivity and adjust set up as needed for maximum therapeutic benefit. Therapeutic Activity: 1: kneeling on floor, floor to stand with mod A via leaning/laying on mat table. attempted 1/2 kneel to stand but unable Skilled Intervention: Proper patient guarding to prevent falls/increase patient safety with moderate assistance, contact guard assistance to assist patient while performing kneeling and attempted floor transfer. Educated on proper/safe technique for activities performed today. Activity progression based on professional judgment. Neuromuscular Re-Education: 1: standing with manual perturbations, normal & wide FRANCOIS (increased difficulty with post perturbation) 2: standing wt-shifts normal FRANCOIS without UE spt CGA/min 3: standing & reaching activities with wide FRANCOIS, normal FRANCOIS Skilled Intervention: Skilled judgment used to assess appropriate program for balance and coordination activity. Education in proprioceptive/kinesthetic awareness during standing, reaching, and dynamic activities. Patient education as noted. Gait Trainin: gait activities with WW 2: discussed, advised trying R AFO again Skilled Intervention: Patient was provided supervision during pre-gait/gait training to prevent falls and insure safety. Facilitated proper gait cycle with the use of visual cues for correction of gait deviations identified in the objective section above. Skilled judgment used to assess selection and proper use of orthotic device; Billing Therapeutic Exercise Treatment Minutes: 36 Therapeutic Activity Treatment Minutes: 6 Neuromuscular Re-Education Treatment Minutes: 8 Gait Training Treatment Minutes: 4 Skilled Treatment Time Minutes (timed and untimed codes): 54 Total Session Time (minutes): 54 Session Start Time : 1336 Session Stop Time : 1430 Sarah Merchant PT [facility] Telephone encounter Note * Telephone Encounter - Julianna Cano LPN - 01/11/2024 10:23 AM EDT Order faxed as below. [facility]09-[facility] Miscellaneous Notes* Telephone Encounter - Julianna Moreno LPN - 01/11/2024 10:23 AM EDT Order faxed as below. * Telephone Encounter - Nunu Gonzalez PA-C - 01/11/2024 9:41 AM EDT Rx ordered, please fax. Nunu Gonzalez PA-C * Telephone Encounter - Carie Lora RN - 01/10/2024 2:39 PM EDT Patient calling with request for script for standard wheelchair for weakness and gait instability due to back problems. If agree, please fax script to Kevin Flores. Carie Lora RN documented in [facility] encounterMi[facility]09-10-2024 Telephone encounter Note * Telephone Encounter - Nunu Gonzalez PA-C - 01/11/2024 9:41 AM EDT Rx ordered, please fax. Nunu Gonzalez PA-C [facility]-09-[facility] Telephone encounter Note* Telephone Encounter - Carie Lora RN - 01/10/2024 2:39 PM EDT Patient calling with request for script for standard wheelchair for weakness and gait instability due to back problems. If agree, please fax script to Kevin Zachariah Flores. Carie Lora RN [facility]08-12-[facility]24 NoteHNO ID: [id number] Author: SARAH MERCHANT, PT Service: ? Author Type: Physical Therapist Type: Progress Notes Filed: 12/13/2023 17:47 Note Text: Episode Visit Count: 5 Therapist That Will Accept/Oversee The Plan Of Care: Marilee Merchant Start of Care Date: 11/15/23 Onset Date: 10/22/23 Plan of Care Certification Date: 11/15/23 Next Certification Due Date: 01/14/24 Patient Identified by Name and Date of : Yes REHABILITATION AND SPORTS THERAPY PHYSICAL THERAPY TREATMENT NOTE ASSESSMENT: Michael Meier tolerated the session with decreased endurance and fatigue. She demonstrated difficulty with B hip weakness, gait instability and decreased endurance/stamina. The patient will continue to benefit from ongoing skilled physical therapy to progress toward set goals. PLAN FOR NEXT VISIT: recheck. continue to progess strength, endurance AND balance. also address UE strength. try treadmill AND/or UBE for endurance SUBJECTIVE: pt c/o general fatigue, says she's tired alot AND often sleeps/naps during the day (takes 2 anxiety meds at night). also says she gets tired when walking with WW, thinks she maybe leans on it too much (uses higher/platform rollator walker at home). pt denies R knee pain but still limited by general weakness AND decreased strength/stamina Pain: Pain Pain Level: 0 OBJECTIVE MEASURES WITH LEVEL OF FUNCTION: LE Strength Trunk Strength: ASLR 4+/5R/L R Hip ABduction: 3-/5 R Ankle Dorsiflexion (L4): 3-/5 L Hip ABduction: 2+/5 Gait Gait Device: Wheeled Walker TREATMENT: Therapeutic Exercise: 1: Nu-step L3x10' 2: s/l hip Abd 10x2 3: supine hip Abd with pink TB 10x2 4: bridging 10x2 5: shuttle leg press [id number]', SL 5bandsL/R 15xea 6: shuttle calf raises 6bandsB 15x 7: supine ankle DF/PF AROM 10xB Skilled Intervention: Patient was educated in proper exercise technique and purpose for exercises. Skilled judgment was used in selection of appropriate interventions. Correct performance of therapeutic exercises was facilitated with verbal and visual cuing. Educated patient on rationale for performing exercises in regards to improving fitness, including balance, increase ease of ADL, and ROM and function . Patient education as noted. PT in constant attendance during use of Nu-step to review current status, monitor effort throughout activity and adjust set up as needed for maximum therapeutic benefit. Gait Trainin: gait activities with WW, raised WW height to improve gait/posture Skilled Intervention: Skilled judgment used to assess selection and proper sizing of assistive device. Billing Therapeutic Exercise Treatment Minutes: 50 Gait Training Treatment Minutes: 5 Skilled Treatment Time Minutes (timed and untimed codes): 55 Total Session Time (minutes): 55 Session Start Time : 153 Session Stop Time : 1632 Sarah Merchant [facility]08-12-2024 History of Present illness Narrative* Sarah Merchant, PT - 12/13/2023 5:44 PM EDT Episode Visit Count: 5 Therapist That Will Accept/Oversee The Plan Of Care: Marilee Merchant Start of Care Date: 11/15/23 Onset Date: 10/22/23 Plan of Care Certification Date: 11/15/23 Next Certification Due Date: 01/14/24 Patient Identified by Name and Date of : Yes REHABILITATION AND SPORTS THERAPY PHYSICAL THERAPY TREATMENT NOTE ASSESSMENT: Michael Meier tolerated the session with decreased endurance and fatigue. She demonstrated difficulty with B hip weakness, gait instability and decreased endurance/stamina. The patient will continue to benefit from ongoing skilled physical therapy to progress toward set goals. PLAN FOR NEXT VISIT: recheck. continue to progess strength, endurance & balance. also address UE strength. try treadmill &/or UBE for endurance SUBJECTIVE: pt c/o general fatigue, says she's tired alot & often sleeps/naps during the day (takes 2 anxiety meds at night). also says she gets tired when walking with WW, thinks she maybe leanson it too much (uses higher/platform rollator walker at home). pt denies R knee pain but still limited by general weakness & decreased strength/stamina Pain: Pain Pain Level: 0 OBJECTIVE MEASURES WITH LEVEL OF FUNCTION: LE Strength Trunk Strength: ASLR 4+/5R/L R Hip ABduction: 3-/5 R Ankle Dorsiflexion (L4): 3-/5 L Hip ABduction: 2+/5 Gait Gait Device: Wheeled Walker TREATMENT: Therapeutic Exercise: 1: Nu-step L3x10' 2: s/l hip Abd 10x2 3: supine hip Abd with pink TB 10x2 4: bridging 10x2 5: shuttle leg press 5rdeidUg2', SL 5bandsL/R 15xea 6: shuttle calf raises 6bandsB 15x 7: supine ankle DF/PF AROM 10xB Skilled Intervention: Patient was educated in proper exercise technique and purpose for exercises. Skilled judgment was used in selection of appropriate interventions. Correct performance of therapeutic exercises was facilitated with verbal and visual cuing. Educated patient on rationale for performing exercises in regards to improving fitness, including balance, increase ease of ADL, and ROM and function . Patient education as noted. PT in constant attendance during use of Nu-step to review current status, monitor effort throughoutactivity and adjust set up as needed for maximum therapeutic benefit. Gait Trainin: gait activities with WW, raised WW height to improve gait/posture Skilled Intervention: Skilled judgment used to assess selection and proper sizing of assistive device. Billing Therapeutic Exercise Treatment Minutes: 50 Gait Training Treatment Minutes: 5 Skilled Treatment Time Minutes (timed and untimed codes): 55 Total Session Time (minutes): 55 Session Start Time : 1537 Session Stop Time : 1632 Sarah Merchant PT documented [facility]24 NoteHNO ID: [id number] Author: WILFRED MCCLELLAN PTA Service: ? Author Type: [employer] Ump[employer] Type: Progress Notes Filed: 12/07/2023 17:49 Note Text: Episode Visit Count: 4 Therapist That Will Accept/Oversee The Plan Of Care: Marilee Merchant Start of Care Date: 11/15/23 Onset Date: 10/22/23 Plan of Care Certification Date: 11/15/23 Next Certification Due Date: 01/14/24 Patient Identified by Name and Date of : Yes REHABILITATION AND SPORTS THERAPY PHYSICAL THERAPY TREATMENT NOTE ASSESSMENT: Michael Meier tolerated the session with fatigue and expected muscle soreness. She demonstrated difficulty with gait with single point cane due to loss of balance to right and retro. The patient will continue to benefit from ongoing skilled physical therapy to progress toward set goals. PLAN FOR NEXT VISIT: continue to strengthen bilateral lower extremity , also address standing static balance SUBJECTIVE: patient continues to report fatigue, reports loss of balance backward and to the right , with sit to stand , patient uses walker at home Pain: Pain Pain Level: 0 Post Treatment Pain Post Treatment Pain Level: No Change OBJECTIVE MEASURES WITH LEVEL OF FUNCTION: Vitals BP: 144/68 TREATMENT: Therapeutic Exercise: 1: nu step seat 9, level 3 6 min , verbal cues to decrease bilateral genu valgus 2: sit to stand without ue 21 inch height 5 x 2 verbal cues for control with swtand to sit 3: *unsupported sittintg , with clamshell blue tb , with abdominal brace 10 x right /10 x left 2 sets 4: long sitting ankle inversion , orange tb 10 x 2 right/left , and supination 1`0 x orqange tb right /left 5: standing calf raise with bilateral ue support Skilled Intervention: Patient was educated in proper exercise technique and purpose for exercises. Reviewed and educated patient on additions/changes for home exercise program as above (*). Skilled judgment was used in selection of appropriate interventions. Provided written instruction for home exercise program to facilitate proper performance and compliance. Patient education as noted. Neuromuscular Re-Education: 1: standing in parallel bars semi tandem stance with and without ue support 15 second hold 2 x right /left widening base of support based on stability 2: educated patient on how base of support affects balance Skilled Intervention: Patient education as noted. Gait Trainin: gait with rolling walker , and with spc 2: advised patient to use walker based on unstable gait with cane Skilled Intervention: see above Billing Therapeutic Exercise Treatment Minutes: 30 Neuromuscular Re-Education Treatment Minutes: 4 Gait Training Treatment Minutes: 6 Skilled Treatment Time Minutes (timed and untimed codes): 40 Total Session Time (minutes): 40 Session Start Time : 1650 Session Stop Time : 1730 [facility]ll[facility] of Present illness Narrative* Wilfred Mcclellan PTA - 12/07/2023 5:46 PM EDT Episode Visit Count: 4 Therapist That Will Accept/Oversee The Plan Of Care: Marilee Merchant Start of Care Date: 11/15/23 Onset Date: 10/22/23 Plan of Care Certification Date: 11/15/23 Next Certification Due Date: 01/14/24 Patient Identified by Name and Date of : Yes REHABILITATION AND SPORTS THERAPY PHYSICAL THERAPY TREATMENT NOTE ASSESSMENT: Michael Meier tolerated the session with fatigue and expected muscle soreness. She demonstrated difficulty with gait with single point cane due to loss of balance to right and retro. The patient will continue to benefit from ongoing skilled physical therapy to progress toward set goals. PLAN FOR NEXT VISIT: continue to strengthen bilateral lower extremity , also address standing static balance SUBJECTIVE: patient continues to report fatigue, reports loss of balance backward and to the right , with sit to stand , patient uses walker at home Pain: Pain Pain Level: 0 Post Treatment Pain Post Treatment Pain Level: No Change OBJECTIVE MEASURES WITH LEVEL OF FUNCTION: Vitals BP: 144/68 TREATMENT: Therapeutic Exercise: 1: nu step seat 9, level 3 6 min , verbal cues to decrease bilateral genu valgus 2: sit to stand without ue 21 inch height 5 x 2 verbal cues for control with swtand to sit 3: *unsupported sittintg , with clamshell blue tb , with abdominal brace 10 x right /10 x left 2 sets 4: long sitting ankle inversion , orange tb 10 x 2 right/left , and supination 1`0 x orqange tb right /left 5: standing calf raise with bilateral ue support Skilled Intervention: Patient was educated in proper exercise technique and purpose for exercises. Reviewed and educated patient on additions/changes for home exercise program as above (*). Skilled judgment was used in selection of appropriate interventions. Provided written instruction for home exercise program to facilitate proper performance and compliance. Patient education as noted. Neuromuscular Re-Education: 1: standing in parallel bars semi tandem stance with and without ue support 15 second hold 2 x right /left widening base of support based on stability 2: educated patient on how base of support affects balance Skilled Intervention: Patient education as noted. Gait Trainin: gait with rolling walker , and with spc 2: advised patient to use walker based on unstable gait with cane Skilled Intervention: see above Billing Therapeutic Exercise Treatment Minutes: 30 Neuromuscular Re-Education Treatment Minutes: 4 Gait Training Treatment Minutes: 6 Skilled Treatment Time Minutes (timed and untimed codes): 40 Total Session Time (minutes): 40 Session Start Time : 1650 Session Stop Time : 1730 Wilfred Mcclellan PTA * Wilfred Mcclellan PTA - 12/07/2023 5:18 PM EDT Program_ID:[id number] Access Code: [email or web address] URL: [email or web address] Date: 12-07-2023 Prepared By: Margoth Mcclellan Program Notes Exercises - Seated Hip Abduction - 1-2 x daily - 5 x weekly - 2-3 sets - 10 reps documented in this encounterMiami [facility]07-31-2024 Instructions* Patient Instructions* Michael Puga DO - 12/01/2023 2:00 PM EDT Make sure you are taking: Vitamin C 500-100 mg a day Zinc 15-25 mg a day Vitamin D3 at least 1000 international unit(s) a day Vitamin B12 at least 500-1000 mcg a day documented in this encounterMi[facility]07-31-2024 NoteHNO ID: [id number] Author: MICHAEL PUGA DO Service: ? Author Type: Physician Type: Progress Notes Filed: 12/01/2023 14:33 Note Text: CC: Michael Meier is a 83 year old female who presents to the office for follow up HPI: Recently had URI end of August, she was Diagnosed with pneumonia and treated with IV antibiotics and breathing treatments and oxygen x 3 weeks into end of October. Recently she has started with another cough and chest congestion and feeling fatigued and worn out. She admits that prior to these infections starting, she hadn't been taking any of her vitamins or supplements at all. No fevers or chills. No vomiting or diarrhea. Had been taking some tylenol and mucinex only Hypothyroidism, hasn't been taking her levothyroxine medication but willing to restart this. She states I didn't think it was helping me at all so I stopped it. PAST MEDICAL HISTORY No date: A-fib (HCC) No date: Allergic rhinitis, cause unspecified No date: Arrhythmia No date: Arthritis No date: Greater trochanteric bursitis of left hip 2003: Melanoma of skin, site unspecified Comment: back No date: Osteoarthritis of left hip No date: Other and unspecified hyperlipidemia No date: Situational mixed anxiety and depressive disorder No date: Sleep apnea No date: Stroke ([facility]) No date: Unspecified essential hypertension No date: Unspecified gastritis and gastroduodenitis PAST SURGICAL HISTORY No date: ABDOMINAL SURGERY HX No date: APPENDECTOMY HX 12/09/2003: ARTHRP ACETBLR/PROX FEM PROSTC AGRFT/ALGRFT Comment: right hip, redone, 07/2004: ARTHRP ACETBLR/PROX FEM PROSTC AGRFT/ALGRFT; Left 11/15/2009: ARTHRP KNE CONDYLEANDPLATU MEDIALANDLAT COMPARTMENTS Comment: Knee replacement, total [facility] 12/30/2009: ARTHRP KNE CONDYLEANDPLATU MEDIALANDLAT COMPARTMENTS Comment: Right knee replaced 06/29/2017: COLONOSCOPY FLX DX W/COLLJ SPEC WHEN PFRMD Comment: Colonoscopy 10/17/2020: EGD Comment: 01/08/2022: EGD W/O [facility] SPEC VARICIES INJ 11/29/2000: ESOPHAGOGASTRODUODENOSCOPY TRANSORAL DIAGNOSTIC Comment: EGD 06/29/2017: ESOPHAGOGASTRODUODENOSCOPY TRANSORAL DIAGNOSTIC Comment: EGD No date: JOINT REPLACEMENT HX No date: LAPS SURG CHOLECYSTECTOMY W/CHOLANGIOGRAPHY 01/2011: PACEMAKER IMPLANT No date: SKIN BIOPSY HX No date: TONSILLECTOMY HX No date: TOTAL ABDOMINAL HYSTERECT W/WO RMVL TUBE OVARY Comment: Hysterectomy, GAL Current Outpatient Medications Medication Sig traZODone (DESYREL) 100 mg tablet Take 1 tablet by mouth daily at bedtime. PARoxetine (PAXIL) 20 mg tablet Take 1 tablet by mouth once daily. In the evening LORazepam (ATIVAN) 0.5 mg Take 1 tablet by mouth two times a day as needed (anxiety attack). rosuvastatin (CRESTOR) 10 mg tablet Take 1 tablet by mouth daily at bedtime. guaiFENesin (MUCINEX) 600 mg 12 hr tablet Take 1 tablet by mouth two times a day as needed for cold/allergy symptoms. levothyroxine (SYNTHROID) 25 mcg tablet Take 1 tablet by mouth once daily. In the morning, Take on empty stomach at least 30 min before eating. For thyroid. vitamin B complex (B COMPLEX 1 ORAL) Take by mouth. (Patient not taking: Reported on 10/14/2023) ferrous sulfate (SLOW FE ORAL) Take by mouth twice daily. (Patient not taking: Reported on 10/14/2023) RESTASIS 0.05 % ophthalmic emulsion Azelastine HCl (OPTIVAR) 0.05 % ophthalmic solution albuterol HFA (PROVENTIL HFA, VENTOLIN HFA) 90 mcg/actuation inhaler Inhale 2 Puffs as instructed every 4 hours as needed. hydroCHLOROthiazide (HYDRODIURIL, ESIDRIX) 12.5 mg capsule Take 2 capsules by mouth once daily. sucralfate (CARAFATE) 100 mg/mL suspension Take 10 mL by mouth four times daily. Cholecalciferol, Vitamin D3, 50 mcg (2,000 unit) cap Take 1 capsule by mouth once daily. (Patient not taking: Reported on 10/14/2023) aspirin, enteric coated (ASPIRIN, ENTERIC COATED) 81 mg EC tablet Take 81 mg by mouth once daily. PACERONE 200 mg tablet Take 200 mg by mouth once daily. ubidecarenone (COQ-10 ORAL) Take by mouth. (Patient not taking: Reported on 10/14/2023) diltiazem CD (CARDIZEM CD) 240 mg 24 hr capsule Take 1 capsule by mouth once daily. losartan (COZAAR) 100 mg tablet Take 1 tablet by mouth once daily. No current facility-administered medications for this visit. ALLERGIES Allergen Reactions Ciprofloxacin Rash Demerol [Meperidine* Vomiting Opioids - Morphine * Intolerance nausea, dizzy, sees things Opioids-Meperidine * nausea/vomiting Penicillin G hives Pravachol [Pravasta* Other: See Comments Leg cramps Sulfa (Sulfonamide * hives Vicodin [Hydrocodon* Intolerance dizzy,nausea,vomiting,headache Zithromax [Azithrom* Intolerance Social History Tobacco Use Smoking status: Never Smokeless tobacco: Never Vaping Use Vaping Use: Never used Substance Use Topics Alcohol use: Not Currently Comment: rarely Drug use: No ROS: See (more content not included)...[facility] [place]07-31-2024 History of Present illness Narrative* Michael Puga, DO - 12/01/2023 1:55 PM EDT CC: Michael Meier is a 83 year old female who presents to the office for follow up HPI: Recently had URI end of August, she was Diagnosed with pneumonia and treated with IV antibiotics and breathing treatments and oxygen x 3 weeks into end of October. Recently she has started with another cough and chest congestion and feeling fatigued and worn out. She admits that prior to these infections starting, she hadn't been taking any of her vitamins or supplements at all. No fevers or chills. No vomiting or diarrhea. Had been taking some tylenol and mucinex only Hypothyroidism, hasn't been taking her levothyroxine medication but willing to restart this. She states I didn't think it was helping me at all so I stopped it. PAST MEDICAL HISTORY No date: A-fib (HCC) No date: Allergic rhinitis, cause unspecified No date: Arrhythmia No date: Arthritis No date: Greater trochanteric bursitis of left hip 2003: Melanoma of skin, site unspecified Comment: back No date: Osteoarthritis of left hip No date: Other and unspecified hyperlipidemia No date: Situational mixed anxiety and depressive disorder No date: Sleep apnea No date: Stroke (HCC) No date: Unspecified essential hypertension No date: Unspecified gastritis and gastroduodenitis PAST SURGICAL HISTORY No date: ABDOMINAL SURGERY HX No date: APPENDECTOMY HX 12/09/2003: ARTHRP ACETBLR/PROX FEM PROSTC AGRFT/ALGRFT Comment: right hip, redone, 07/2004: ARTHRP ACETBLR/PROX FEM PROSTC AGRFT/ALGRFT; Left 11/15/2009: ARTHRP KNE CONDYLE&PLATU MEDIAL&LAT COMPARTMENTS Comment: Knee replacement, total -Left - [facility] 12/30/2009: ARTHRP KNE CONDYLE&PLATU MEDIAL&LAT COMPARTMENTS Comment: Right knee replaced 06/29/2017: COLONOSCOPY FLX DX W/COLLJ SPEC WHEN PFRMD Comment: Colonoscopy 10/17/2020: EGD Comment: 01/08/2022: EGD W/O [facility] SPEC VARICIES INJ 11/29/2000: ESOPHAGOGASTRODUODENOSCOPY TRANSORAL DIAGNOSTIC Comment: EGD 06/29/2017: ESOPHAGOGASTRODUODENOSCOPY TRANSORAL DIAGNOSTIC Comment: EGD No date: JOINT REPLACEMENT HX No date: LAPS SURG CHOLECYSTECTOMY W/CHOLANGIOGRAPHY 01/2011: PACEMAKER IMPLANT No date: SKIN BIOPSY HX No date: TONSILLECTOMY HX No date: TOTAL ABDOMINAL HYSTERECT W/WO RMVL TUBE OVARY Comment: Hysterectomy, GAL Current Outpatient Medications Medication Sig traZODone (DESYREL) 100 mg tablet Take 1 tablet by mouth daily at bedtime. PARoxetine (PAXIL) 20 mg tablet Take 1 tablet by mouth once daily. In the evening LORazepam (ATIVAN) 0.5 mg Take 1 tablet by mouth two times a day as needed (anxiety attack). rosuvastatin (CRESTOR) 10 mg tablet Take 1 tablet by mouth daily at bedtime. guaiFENesin (MUCINEX) 600 mg 12 hr tablet Take 1 tablet by mouth two times a day as needed for cold/allergy symptoms. levothyroxine (SYNTHROID) 25 mcg tablet Take 1 tablet by mouth once daily. In the morning, Take on empty stomach at least 30 min before eating. For thyroid. vitamin B complex (B COMPLEX 1 ORAL) Take by mouth. (Patient not taking: Reported on 10/14/2023) ferrous sulfate (SLOW FE ORAL) Take by mouth twice daily. (Patient not taking: Reported on 10/14/2023) RESTASIS 0.05 % ophthalmic emulsion Azelastine HCl (OPTIVAR) 0.05 % ophthalmic solution albuterol HFA (PROVENTIL HFA, VENTOLIN HFA) 90 mcg/actuation inhaler Inhale 2 Puffs as instructed every 4 hours as needed. hydroCHLOROthiazide (HYDRODIURIL, ESIDRIX) 12.5 mg capsule Take 2 capsules by mouth once daily. sucralfate (CARAFATE) 100 mg/mL suspension Take 10 mL by mouth four times daily. Cholecalciferol, Vitamin D3, 50 mcg (2,000 unit) cap Take 1 capsule by mouth once daily. (Patient not taking: Reported on 10/14/2023) aspirin, enteric coated (ASPIRIN, ENTERIC COATED) 81 mg EC tablet Take 81 mg by mouth once daily. PACERONE 200 mg tablet Take 200 mg by mouth once daily. ubidecarenone (COQ-10 ORAL) Take by mouth. (Patient not taking: Reported on 10/14/2023) diltiazem CD (CARDIZEM CD) 240 mg 24 hr capsule Take 1 capsule by mouth once daily. losartan (COZAAR) 100 mg tablet Take 1 tablet by mouth once daily. No current facility-administered medications for this visit. ALLERGIES Allergen Reactions Ciprofloxacin Rash Demerol [Meperidine* Vomiting Opioids - Morphine * Intolerance nausea, dizzy, sees things Opioids-Meperidine * nausea/vomiting Penicillin G hives Pravachol [Pravasta* Other: See Comments Leg cramps Sulfa (Sulfonamide * hives Vicodin [Hydrocodon* Intolerance dizzy,nausea,vomiting,headache Zithromax [Azithrom* Intolerance Social History Tobacco Use Smoking status: Never Smokeless tobacco: Never Vaping Use Vaping Use: Never used Substance Use Topics Alcohol use: Not Currently Comment: rarely Drug use: No ROS: See HPI PE: BP 146/76 Pulse 64 Temp (Src) 98 (Right Tympanic) Resp 24 Wt 227 lb (103.0kg) Gen: A&OX3, NAD, non-toxic appearing, fatigued appearing, coughing, HEENT: PERRLA, EOMs intact b/l, nares without drainage, pharynx without erythema, exudate, lesions,or drainage. Uvula midline. Neck: No LAD, no thyromegaly, no meningismus. CV: RRR, no murmur Lungs: rhonchi b/l bases of lungs, no distress, coughing, bronchial breath sounds, no wheezing Skin: No rashes, lesions, or wounds on exposed skin. No edema Normal peripheral pulses ASSESSMENT/PLAN: 1. Acute bronchitis, unspecified organism - ICD9: 466.0, ICD10: J20.9 (primary diagnosis) Start on mucinex twice a day + albuterol + doxycycline + prednisone Check CXR Concerns for bronchitis vs. CAP - DOXYCYCLINE HYCLATE 100 MG TABLET - PREDNISONE 10 MG TABLET - XR CHEST 2V FRONTAL/LAT 2. Thyroid disease - ICD9: 246.9, ICD10: E07.9 Restart thyroid hormone, d/w her today importance of this - LEVOTHYROXINE 50 MCG TABLET 3. Rhonchi - ICD9: 786.7, ICD10: R09.89 See above - DOXYCYCLINE HYCLATE 100 MG TABLET - PREDNISONE 10 MG TABLET - XR CHEST 2V FRONTAL/LAT 4. Obstructive lung disease (HCC) - ICD9: 496, ICD10: J44.9 See above 5. Paroxysmal atrial fibrillation (HCC) - ICD9: 427.31, ICD10: I48.0 stable 6. Disorder of carotid artery (HCC) - ICD9: 447.9, ICD10: I77.9 stable 7. Malignant melanoma of skin of trunk, except scrotum (HCC) - ICD9: 172.5, ICD10: C43.59 Hx of Michael Puga DO Return if no improvement. Follow up with Michael Puga DO. To ER if develops chest pain, shortness of breath. Discussed risks, benefits, alternatives, and potential side effects of medications. Patient/Guardian expressed understanding and agreed with the plan. See patient instructions. Michael Puga DO [address] [place] [address] documented [facility]07-[facility]24 Telephone encounter Note * Telephone Encounter - Loli Adamson RN - 11/26/2023 8:41 AM EDT Pt returned call and given provider's message below with verbalized understanding. Patient reports her phone on previous call. [facility]07-[facility] Miscellaneous Notes* Telephone Encounter - Loli Adamson RN - 11/26/2023 8:41 AM EDT Pt returned call and given provider's message below with verbalized understanding. Patient reports her phone on previous call. * Telephone Encounter - Jacque Machuca MA - 11/26/2023 8:24 AM EDT Started to speak with patient and other line disconnected. Please try again. Jacque Machuca MA * Telephone Encounter - Asia Rosales APRN.CNP - 11/26/2023 6:55 AM EDT Please let her know that overall no acute concerns with her labs, she can discuss in more detail ather upcoming appt with Dr. Puga. Asia Rosales APRN.CARMELINA documented in this encounterMi[facility]07-26-2024 Telephone encounter Note * Telephone Encounter - Jacque Machuca MA - 11/26/2023 8:24 AM EDT Started to speak with patient and other line disconnected. Please try again. Jacque Machuca MA [facility]07-26-[facility] Telephone encounter Note* Telephone Encounter - Asia Rosales APRN.CNP - 11/26/2023 6:55 AM EDT Please let her know that overall no acute concerns with her labs, she can discuss in more detail ather upcoming appt with Dr. Puga. Asia Rosales APRN.CNP [facility] Work Phone: 1(833) 982-147607-25-2024 NoteHNO ID: [id number] Author: SARAH MERCHANT, FRANTZ Service: ? Author Type: Physical Therapist Type: Progress Notes Filed: 11/25/2023 09:39 Note Text: Episode Visit Count: 3 Therapist That Will Accept/Oversee The Plan Of Care: Marilee Merchant Start of Care Date: 11/15/23 Onset Date: 10/22/23 Plan of Care Certification Date: 11/15/23 Next Certification Due Date: 01/14/24 Patient Identified by Name and Date of : Yes REHABILITATION AND SPORTS THERAPY PHYSICAL THERAPY TREATMENT NOTE ASSESSMENT: Michael Meier tolerated the session with decreased endurance and fatigue. She demonstrated difficulty with standing balance and B hip weakness, L worse than R and R ankle weakness. The patient will continue to benefit from ongoing skilled physical therapy to progress toward set goals. PLAN FOR NEXT VISIT: continue to progess strength, endurance AND balance. also address UE strength SUBJECTIVE: pt c/o fatigue AND weakness. had bloodwork this AM, f/u with PCP next week. no pain today, just tired Pain: OBJECTIVE MEASURES WITH LEVEL OF FUNCTION: LE Strength R Hip ABduction: 3-/5 (3- to 3/5) R Ankle Eversion: 3+/5 L Hip ABduction: 2+/5 (2+ to 3-/5) L Ankle Eversion: 4+/5 Gait Gait Device: Cane (hurDhingana cane) Balance Static Standing Balance: Narrow Base of Support, Tandem Stance, Single Leg Stance Narrow Base of Support: Fair- Tandem Stance: unable Single Leg Stance: unable TREATMENT: Therapeutic Exercise: 1: Nu-step L3x10' 2: bridging 15x 3: HS stretch supine R/L 4: s/l hip ABd 10x2R, unable L d/t weakness 5: *supine hip ABd with orange TB 10x2L, 10xR (increased difficulty L vs R d/t weakness) 6: ankle DF with orange TB 10x2R, 10xL (increased difficulty R vs L d/t weakness) 7: *ankle EV with orange TB 10x2R, 10xL (increased difficulty R vs L) Skilled Intervention: Patient was educated in proper exercise technique and purpose for exercises. Reviewed and educated patient on additions/changes for home exercise program as above (*). Skilled judgment was used in selection of appropriate interventions. Correct performance of therapeutic exercises was facilitated with verbal and visual cuing. Educated patient on rationale for performing exercises in regards to decreasing fatigue , improving fitness, including balance, increase ease of ADL, and ROM and function . Patient education as noted. PT in constant attendance during use of Nu-step to review current status, monitor effort throughout activity and adjust set up as needed for maximum therapeutic benefit. Therapeutic Activity: 1: sit to stands without UE assist 3x 2: sit to stands with staggered feet: R/L foot f/w,b/w with difficulty Skilled Intervention: Educated on proper/safe technique for activities performed today. Activity progression based on professional judgment. Neuromuscular Re-Education: 1: standing with narrow FRANCOIS, with difficulty < 3 seconds 2: standing with staggered feet/semi-tandem: with difficulty AND LOB Skilled Intervention: Skilled judgment used to assess appropriate program for balance and coordination activity. Patient education as noted. Billing Therapeutic Exercise Treatment Minutes: 30 Therapeutic Activity Treatment Minutes: 4 Neuromuscular Re-Education Treatment Minutes: 4 Skilled Treatment Time Minutes (timed and untimed codes): 38 Total Session Time (minutes): 38 Session Start Time : 844 Session Stop Time : 922 Sarah Merchant [facility]07-25-2024 History of Present illness Narrative* Sarah Merchant, PT - 11/25/2023 9:36 AM EDT Episode Visit Count: 3 Therapist That Will Accept/Oversee The Plan Of Care: Marilee Merchant Start of Care Date: 11/15/23 Onset Date: 10/22/23 Plan of Care Certification Date: 11/15/23 Next Certification Due Date: 01/14/24 Patient Identified by Name and Date of : Yes REHABILITATION AND SPORTS THERAPY PHYSICAL THERAPY TREATMENT NOTE ASSESSMENT: Michael Meier tolerated the session with decreased endurance and fatigue. She demonstrated difficulty with standing balance and B hip weakness, L worse than R and R ankle weakness. The patient will continue to benefit from ongoing skilled physical therapy to progress toward set goals. PLAN FOR NEXT VISIT: continue to progess strength, endurance & balance. also address UE strength SUBJECTIVE: pt c/o fatigue & weakness. had bloodwork this AM, f/u with PCP next week. no pain today, just tired Pain: OBJECTIVE MEASURES WITH LEVEL OF FUNCTION: LE Strength R Hip ABduction: 3-/5 (3- to 3/5) R Ankle Eversion: 3+/5 L Hip ABduction: 2+/5 (2+ to 3-/5) L Ankle Eversion: 4+/5 Gait Gait Device: Cane (hurry cane) Balance Static Standing Balance: Narrow Base of Support, Tandem Stance, Single Leg Stance Narrow Base of Support: Fair- Tandem Stance: unable Single Leg Stance: unable TREATMENT: Therapeutic Exercise: 1: Nu-step L3x10' 2: bridging 15x 3: HS stretch supine R/L 4: s/l hip ABd 10x2R, unable L d/t weakness 5: *supine hip ABd with orange TB 10x2L, 10xR (increased difficulty L vs R d/t weakness) 6: ankle DF with orange TB 10x2R, 10xL (increased difficulty R vs L d/t weakness) 7: *ankle EV with orange TB 10x2R, 10xL (increased difficulty R vs L) Skilled Intervention: Patient was educated in proper exercise technique and purpose for exercises. Reviewed and educated patient on additions/changes for home exercise program as above (*). Skilled judgment was used in selection of appropriate interventions. Correct performance of therapeutic exercises was facilitated with verbal and visual cuing. Educated patient on rationale for performing exercises in regards to decreasing fatigue , improvingfitness, including balance, increase ease of ADL, and ROM and function . Patient education as noted. PT in constant attendance during use of Nu-step to review current status, monitor effort throughoutactivity and adjust set up as needed for maximum therapeutic benefit. Therapeutic Activity: 1: sit to stands without UE assist 3x 2: sit to stands with staggered feet: R/L foot f/w,b/w with difficulty Skilled Intervention: Educated on proper/safe technique for activities performed today. Activity progression based on professional judgment. Neuromuscular Re-Education: 1: standing with narrow FRANCOIS, with difficulty < 3 seconds 2: standing with staggered feet/semi-tandem: with difficulty & LOB Skilled Intervention: Skilled judgment used to assess appropriate program for balance and coordination activity. Patient education as noted. Billing Therapeutic Exercise Treatment Minutes: 30 Therapeutic Activity Treatment Minutes: 4 Neuromuscular Re-Education Treatment Minutes: 4 Skilled Treatment Time Minutes (timed and untimed codes): 38 Total Session Time (minutes): 38 Session Start Time : 844 Session Stop Time : 922 Sarah Merchant PT [facility] NoteHNO ID: [id number] Author: SARAH MERCHANT PT Service: ? Author Type: Physical Therapist Type: Progress Notes Filed: 11/23/2023 15:17 Note Text: Episode Visit Count: 2 Therapist That Will Accept/Oversee The Plan Of Care: Marilee Merchant Start of Care Date: 11/15/23 Onset Date: 10/22/23 Plan of Care Certification Date: 11/15/23 Next Certification Due Date: 01/14/24 Patient Identified by Name and Date of : Yes REHABILITATION AND SPORTS THERAPY PHYSICAL THERAPY TREATMENT NOTE ASSESSMENT: Michael Meier tolerated the session with decreased endurance and fatigue. She demonstrated difficulty with exercise AND activity tolerance. The patient will continue to benefit from ongoing skilled physical therapy to progress toward set goals. PLAN FOR NEXT VISIT: continue to progress B UE/LE strength AND general endurance SUBJECTIVE: doing ok, denies pain although c/o LE soreness/fatigue when doing Nu-step, R worse than L (pt says probably b/c of the R footdrop). says she's been doing the toe raises and the side leg lifts at home. she c/o general weakness. she admits to being very sedentary (other than doing LE pedal stand/restorator at home). pt stated she may need to take an anxiety pill before she comes to PT Pain: Pain Pain Level: 0 OBJECTIVE MEASURES WITH LEVEL OF FUNCTION: TREATMENT: Therapeutic Exercise: 1: Nu-step L2x10' B UE/LE (limited by LE muscle fatigue - inner thighs AND calfs) 2: standing calf stretch R/L 3: standing hip ABd with B UE spt:10xR/L, with 1 UE spt: 10xL (with difficulty), unable R d/t L hip weakness/instability with SLS 4: shuttle leg press [id number]', SL 5bandsL/R 10xea 5: shuttle calf raises 5bandsB 10x Skilled Intervention: Patient was educated in proper exercise technique and purpose for exercises. Skilled judgment was used in selection of appropriate interventions. Correct performance of therapeutic exercises was facilitated with verbal and visual cuing. Educated patient on rationale for performing exercises in regards to improving fitness, including balance, increase ease of ADL, and ROM and function . Patient education as noted. PT in constant attendance during use of Nu-step to review current status, monitor effort throughout activity and adjust set up as needed for maximum therapeutic benefit. Gait Trainin: gait activities with WW Skilled Intervention: Skilled judgment used to assess proper use of assistive device. Billing Therapeutic Exercise Treatment Minutes: 35 Gait Training Treatment Minutes: 4 Skilled Treatment Time Minutes (timed and untimed codes): 39 Total Session Time (minutes): 39 Session Start Time : 1422 Session Stop Time : 1501 [facility]07[facility]23-[facility] History of Present illness Narrative* Sarah Merchant, PT - 11/23/2023 3:15 PM EDT Episode Visit Count: 2 Therapist That Will Accept/Oversee The Plan Of Care: Marilee Merchant Start of Care Date: 11/15/23 Onset Date: 10/22/23 Plan of Care Certification Date: 11/15/23 Next Certification Due Date: 01/14/24 Patient Identified by Name and Date of : Yes REHABILITATION AND SPORTS THERAPY PHYSICAL THERAPY TREATMENT NOTE ASSESSMENT: Michael Meier tolerated the session with decreased endurance and fatigue. She demonstrated difficulty with exercise & activity tolerance. The patient will continue to benefit fromongoing skilled physical therapy to progress toward set goals. PLAN FOR NEXT VISIT: continue to progress B UE/LE strength & general endurance SUBJECTIVE: doing ok, denies pain although c/o LE soreness/fatigue when doing Nu-step, R worse thanL (pt says probably b/c of the R footdrop). says she's been doing the toe raises and the side leg lifts at home. she c/o general weakness. she admits to being very sedentary (other than doing LE pedal stand/restorator at home). pt stated she may need to take an anxiety pill before she comes to PT Pain: Pain Pain Level: 0 OBJECTIVE MEASURES WITH LEVEL OF FUNCTION: TREATMENT: Therapeutic Exercise: 1: Nu-step L2x10' B UE/LE (limited by LE muscle fatigue - inner thighs & calfs) 2: standing calf stretch R/L 3: standing hip ABd with B UE spt:10xR/L, with 1 UE spt: 10xL (with difficulty), unable R d/t L hipweakness/instability with SLS 4: shuttle leg press [id number]', SL 5bandsL/R 10xea 5: shuttle calf raises 5bandsB 10x Skilled Intervention: Patient was educated in proper exercise technique and purpose for exercises. Skilled judgment was used in selection of appropriate interventions. Correct performance of therapeutic exercises was facilitated with verbal and visual cuing. Educated patient on rationale for performing exercises in regards to improving fitness, including balance, increase ease of ADL, and ROM and function . Patient education as noted. PT in constant attendance during use of Nu-step to review current status, monitor effort throughoutactivity and adjust set up as needed for maximum therapeutic benefit. Gait Trainin: gait activities with WW Skilled Intervention: Skilled judgment used to assess proper use of assistive device. Billing Therapeutic Exercise Treatment Minutes: 35 Gait Training Treatment Minutes: 4 Skilled Treatment Time Minutes (timed and untimed codes): 39 Total Session Time (minutes): 39 Session Start Time : 1422 Session Stop Time : 1501 Sarah Merchant PT [facility] NoteHNO ID: [id number] Author: SARAH MERCHANT PT Service: ? Author Type: Physical Therapist Type: Progress Notes Filed: 11/15/2023 18:46 Note Text: Episode Visit Count: 1 Therapist That Will Accept/Oversee The Plan Of Care: Marilee Merchant Start of Care Date: 11/15/23 Onset Date: 10/22/23 Plan of Care Certification Date: 11/15/23 Next Certification Due Date: 01/14/24 Patient Identified by Name and Date of : Yes REHABILITATION AND SPORTS THERAPY PHYSICAL THERAPY EVALUATION PLAN OF CARE: Assessment: Michael Meier presents with chief complaint of general weakness, falls and difficulty walking that interferes with walking, stair negotiation, heavy exertion, lifting, physical activities, recreational activities, kneeling, carrying . She presents with impairments in ADL's, balance, gait, independence in exercise, overall function, strength, and symptom management. Patient did not complete the PROMIS? (Patient Reported Outcome Measures Information System). Prognosis for therapy is Good due to: positive past response to therapy, good support system/ coping skills Fair due to: advanced age, chronic nature of impairments . Pt presents s/p ortho consult for R knee pain s/p recent fall (which has resolved) with strength, balance and gait deficits and increased fall risk. She will benefit from skilled therapy services to meet the goals established for this plan of care as noted below. Assessment Fall Risk : Active at risk Goals for Episode of Care: created on 11/15/23 through 01/14/24 [place] in home exercise program. Patient will demonstrate increase in B UE AND LE strength to 4+/5 during manual muscle testing in order to improve function for home management tasks and prior functional tasks. Patient will Improve Timed Up and Go to 12 seconds to demonstrate decreased risk of falling. Patient will improve 5 time sit to stand to demonstrate improvement in functional lower extremity strength. Patient will report no falls. Patient will demonstrate independent and proper use of assisstive device to allow for improved walking quality and safety therefore reducing the risk of falls. Patient Goals: I don't know why I'm here. I guess maybe to strengthen my legs Planned Interventions, Frequency, and Duration: Current Frequency: 2x/week Duration: 8 weeks Total Number of Visits Planned: 15 Planned Treatment Interventions: Therapeutic exercise (72747), Neuromuscular re-education (54173), Therapeutic activities (53679), Self-senior care management (08553), Gait Training (64990), Patient/Family/Caregiver Education, General Conditioning PLAN FOR NEXT VISIT: address LE AND UE strength, endruance, gait AND balance. try/practice floor transfer as able Patient demonstrates good understanding of plan of care and treatment. The above goals and plan of care were discussed and agreed upon by patient/family. SUBJECTIVE: pt initially reports unaware of why she was referred to PT. says she fell 2-3 weeks ago and hurt her R knee so she went to see ortho since she's had B TKA surgeries (to make sure her knee was ok). she was told she strained her knee and was referred to PT, they also told her to start using a walker rather than a cane. pt says knee is feeling much better, she currently denies pain. she reports recent decline in strength AND endurance s/p recent hospitalization last month for pneumonia. she also reports hx of L hip weakness s/p L KENN AND R ankle weakness/footdrop s/p R KENN. she does admit to 2 falls over the past year. she previously walked with a cane (on R side) but has been compliant with recent use of WW (although she doesn't like it) Patient Goals: I don't know why I'm here. I guess maybe to strengthen my legs Functional Limitations: walking, stair negotiation, heavy exertion, lifting, physical activities, recreational activities, kneeling, carrying Prior Level of Function: Independent without limitations Relevant History Past Relevant Medical Conditions: Arthritis, Cardiac, Hypertension Employment: Retired Home Environment Patient Lives With: Self/Alone Equipment Owned: Cane, Walker- Wheeled Transportation: SUV, Drives independently using foot controls/hand controls Intake Information: Prescription present Previous Treatment: Self prescribed exercises Falls History # of falls in past year: 2 # of falls resulting in an injury in past year: 0 Pain: Pain Pain Level: 0 PROMIS Scales T-scores: mean of general population = 50. 5 points is clinically meaningfully difference Percentiles provide an indication of how the patient's score ranks in relation to the general population. Higher percentile rankings indicate better function/quality of life. 50th percentile is the average of the general population and indicates half of respondents had a worse score. OBJECTIVE MEASURES WITH LEVEL OF FUNCTION: UE and Cervical Strength R UE Strength: (more content not included)...[facility] 11-15-2023 History of Present illness Narrative* Sarah Merchant, PT - 11/15/2023 6:32 PM EDT Episode Visit Count: 1 Therapist That Will Accept/Oversee The Plan Of Care: Marilee Merchant Start of Care Date: 11/15/23 Onset Date: 10/22/23 Plan of Care Certification Date: 11/15/23 Next Certification Due Date: 01/14/24 Patient Identified by Name and Date of : Yes REHABILITATION AND SPORTS THERAPY PHYSICAL THERAPY EVALUATION PLAN OF CARE: Assessment: Michael Meier presents with chief complaint of general weakness, falls and difficulty walking that interferes with walking, stair negotiation, heavy exertion, lifting, physical activities, recreational activities, kneeling, carrying . She presents with impairments in ADL's, balance,gait, independence in exercise, overall function, strength, and symptom management. Patient did not complete the PROMIS (Patient Reported Outcome Measures Information System). Prognosis for therapy is Good due to: positive past response to therapy, good support system/ coping skills Fair due to: advanced age, chronic nature of impairments . Pt presents s/p ortho consult for R kneepain s/p recent fall (which has resolved) with strength, balance and gait deficits and increased fall risk. She will benefit from skilled therapy services to meet the goals established for this plan of care as noted below. Assessment Fall Risk : Active at risk Goals for Episode of Care: created on 11/15/23 through 01/14/24 [place] in home exercise program. Patient will demonstrate increase in B UE & LE strength to 4+/5 during manual muscle testing inorder to improve function for home management tasks and prior functional tasks. Patient will Improve Timed Up and Go to 12 seconds to demonstrate decreased risk of falling. Patient will improve 5 time sit to stand to demonstrate improvement in functional lower extremity strength. Patient will report no falls. Patient will demonstrate independent and proper use of assisstive device to allow for improved walking quality and safety therefore reducing the risk of falls. Patient Goals: I don't know why I'm here. I guess maybe to strengthen my legs Planned Interventions, Frequency, and Duration: Current Frequency: 2x/week Duration: 8 weeks Total Number of Visits Planned: 15 Planned Treatment Interventions: Therapeutic exercise (43271), Neuromuscular re- education (24177), Therapeutic activities (91150), Self-senior care management (18142), Gait Training (50167), Patient/Family/Caregiver Education, General Conditioning PLAN FOR NEXT VISIT: address LE & UE strength, endruance, gait & balance. try/practice floor transfer as able Patient demonstrates good understanding of plan of care and treatment. The above goals and plan of care were discussed and agreed upon by patient/family. SUBJECTIVE: pt initially reports unaware of why she was referred to PT. says she fell 2-3 weeks ago and hurt her R knee so she went to see ortho since she's had B TKA surgeries (to make sure her knee was ok). she was told she strained her knee and was referred to PT, they also told her to start using a walker rather than a cane. pt says knee is feeling much better, she currently denies pain. she reports recent decline in strength & endurance s/p recent hospitalization last month for pneumonia. she alsoreports hx of L hip weakness s/p L KENN & R ankle weakness/footdrop s/p R KENN. she does admit to2 falls over the past year. she previously walked with a cane (on R side) but has been compliant with recent use of WW (although she doesn't like it) Patient Goals: I don't know why I'm here. I guess maybe to strengthen my legs Functional Limitations: walking, stair negotiation, heavy exertion, lifting, physical activities, recreational activities, kneeling, carrying Prior Level of Function: Independent without limitations Relevant History Past Relevant Medical Conditions: Arthritis, Cardiac, Hypertension Employment: Retired Home Environment Patient Lives With: Self/Alone Equipment Owned: Cane, Walker- Wheeled Transportation: SUV, Drives independently using foot controls/hand controls Intake Information: Prescription present Previous Treatment: Self prescribed exercises Falls History # of falls in past year: 2 # of falls resulting in an injury in past year: 0 Pain: Pain Pain Level: 0 PROMIS Scales T-scores: mean of general population = 50. 5 points is clinically meaningfully difference Percentiles provide an indication of how the patient's score ranks in relation to the general population. Higher percentile rankings indicate better function/quality of life. 50th percentile is the average of the general population and indicates half of respondents had a worse score. OBJECTIVE MEASURES WITH LEVEL OF FUNCTION: UE and Cervical Strength R UE Strength: R shoulder grossly 3+/5 L UE Strength: L shoulder grossly 3+/5 LE Strength Trunk Strength: ASLR 4 to 4+/5 R/L R Hip Flexion (L2): 5/5 R Hip ABduction: 3/5 (3 to 3+/5) R Knee Extension (L3): 5/5 R Ankle Dorsiflexion (L4): 3/5 R Ankle Plantar Flexion: 3-/5 L Hip Flexion (L2): 5/5 L Hip ABduction: 3-/5 L Knee Extension (L3): 5/5 L Ankle Dorsiflexion (L4): 5/5 L Ankle Plantar Flexion: 4/5 Mobility Supine To Sit: Independent Sit to Supine: Independent Sit To Stand: Independent Stand To Sit: Independent Floor Transfer: max A with difficulty per pt report Gait Gait: Modified Independent Gait Device: Wheeled Walker Gait Deviations: General Deviations General Deviations/Observations: Antalgic gait, Jennifer decreased, Step length decreased, Non-functional gait speed Functional Performance Test Results Assistive Device: Wheeled Walker 5 Times Sit to Stand Test : 13 sec (from 17 chair without UE assist) Timed Up and Go (sec): 17.89 sec Education: Education Learning/educational needs: Lifestyle changes, Safety, Home exercise program, Plan of Care, Gait Training Education Provided: Yes, see treatment interventions for education provided Education Provided To: Patient Education Mode/Type: Demonstration, Explanation/Discussion, Performance Response to Education/Teach Back: States/Identifies, Return Demonstration, Requires Review/Additional Education TREATMENT: PT Treatment Interventions: Therapeutic Exercise, Gait Training, Therapeutic Activity Evaluation Therapeutic Exercise: 1: *s/l hip ABd 10xR, unable L d/t chronic weakness 2: *standing calf raises 10xB, SL 5xL, unable R d/t weakness 3: discussed/recommended plans for UE & LE strengthening to improve gait, balance & transfers (incl floor/ground transfer) Skilled Intervention: Patient was educated in proper exercise technique and purpose for exercises. Reviewed and educated patient on additions/changes for home exercise program as above (*). Skilled judgment was used in selection of appropriate interventions. Correct performance of therapeutic exercises was facilitated with verbal and visual cuing. Educated patient on rationale for performing exercises in regards to improving fitness, including balance, and increase ease of ADL. Patient education as noted. Therapeutic Activity: 1: discussed/demonstrated floor xfer via knee to stand Skilled Intervention: Educated on proper/safe technique for activities performed today. Activity progression based on professional judgment. Gait Trainin: gait with WW: S/mod Ind. recommended use of WW for safety 2: gait with WBQC 25' SBA/SSPC, with SPC 10' CGA/SBA, 1 LOB b/c SPC slid on floor (pt has/uses hurrycane sometimes) Skilled Intervention: Patient was provided stand by assist, supervision during pre-gait/gait training to prevent falls and insure safety. Skilled judgment used to assess selection and proper use of assistive device. Billing * Evaluation Moderate Complexity: 1 Unit Therapeutic Exercise Treatment Minutes: 10 Therapeutic Activity Treatment Minutes: 5 Gait Training Treatment Minutes: 10 Skilled Treatment Time Minutes (timed and untimed codes): 49 Total Session Time (minutes): 49 Session Start Time : 1634 Session Stop Time : 1723 Sarah Merchant, PT [facility] Telephone encounter Note * Telephone Encounter - Julianna Cano LPN - 10/19/2023 9:33 AM EDT [facility] informed. D/c Home O2 faxed to [employer]. [facility] Miscellaneous Notes* Telephone Encounter - Julianna Moreno LPN - 10/19/2023 9:33 AM EDT [facility] informed. D/c Home O2 faxed to [employer]. * Telephone Encounter - Michael Puga DO - 10/19/2023 6:42 AM EDT Order signed to discontinue oxygen Ok to increase dose of trazodone rx updated and sent Please notify Michael Puga DO \ The following approved medication requests have been transmitted electronically. Requested Prescriptions Signed Prescriptions Disp Refills traZODone (DESYREL) 100 mg tablet 30 tablet 2 Sig: Take 1 tablet by mouth daily at bedtime. Authorizing Provider: MICHAEL PUGA DO * Telephone Encounter - Nadine Colon LPN - 10/18/2023 9:07 AM EDT Bhavna from [facility] calling patient had seen [facility] [employer] on 10/14/2023. She started her on Trazodone 50 mg at bedtime. Patient started Trazodone rx Wednesday night and said she did not sleep at all, not helping. Asking if the dose could be increased or changed to something else? Patientsaid Zolpidem made her feel hung over. Patient uses [facility]. Aware [facility]ILK SCREEN LAYOUT DRAFTER is out of the office this week. Patient asking to have oxygen taken out of the household, she is not using it at all. [facility] started her on the oxygen and [employer] is her oxygen supplier. Pending order if wanted. Please call Bhavna back response. Please advise [facility] Telephone encounter Note * Telephone Encounter - Michael Puga DO - 10/19/2023 6:42 AM EDT Order signed to discontinue oxygen Ok to increase dose of trazodone rx updated and sent Please notify Michael Puga DO \ The following approved medication requests have been transmitted electronically. Requested Prescriptions Signed Prescriptions Disp Refills traZODone (DESYREL) 100 mg tablet 30 tablet 2 Sig: Take 1 tablet by mouth daily at bedtime. Authorizing Provider: MICHAEL PUGA DO [facility] Telephone encounter Note* Telephone Encounter - Nadine Colon LPN - 10/18/2023 9:07 AM EDT Bhavna from [facility] calling patient had seen Key Portillo SILK SCREEN LAYOUT DRAFTER on 10/14/2023. She started her on Trazodone 50 mg at bedtime. Patient started Trazodone rx Wednesday night and said she did not sleep at all, not helping. Asking if the dose could be increased or changed to something else? Patientsaid Zolpidem made her feel hung over. Patient uses [facility] for her [facility]. Aware SILK SCREEN LAYOUT DRAFTER is out of the office this week. Patient asking to have oxygen taken out of the household, she is not using it at all. [facility] started her on the oxygen and [employer] is her oxygen supplier. Pending order if wanted. Please call Bhavna back response. Please advise [facility] Telephone encounter Note* Telephone Encounter - Marisol Cano LPN - 10/18/2023 8:59 AM EDT Prescription Refill Information The patient has been identified by name and date of : Yes Caregiver verified no other encounters exist for this prescription request: Yes Caregiver confirmed with patient/requestor that no other refills are due, in the near future, with this provider at this time: Yes The last office visit in the department: 10/14/23 Does the patient have a future office visit with this provider/department: Yes 12/01/23 Requested Prescriptions Pending Prescriptions Disp Refills PARoxetine (PAXIL) 20 mg tablet 90 tablet 1 Sig: Take 1 tablet by mouth once daily. In the evening Marisol Cano LPN October 18, 2023 8:59 AM [facility] Miscellaneous Notes* Telephone Encounter - Marisol Cano LPN - 10/18/2023 8:59 AM EDT Prescription Refill Information The patient has been identified by name and date of : Yes Caregiver verified no other encounters exist for this prescription request: Yes Caregiver confirmed with patient/requestor that no other refills are due, in the near future, with this provider at this time: Yes The last office visit in the department: 10/14/23 Does the patient have a future office visit with this provider/department: Yes 12/01/23 Requested Prescriptions Pending Prescriptions Disp Refills PARoxetine (PAXIL) 20 mg tablet 90 tablet 1 Sig: Take 1 tablet by mouth once daily. In the evening Marisol Cano LPN October 18, 2023 8:59 AM * Telephone Encounter - Yumiko Blancas - 10/18/2023 8:56 AM EDT Prescription Refill Information The patient has been identified by name and date of : Yes Caregiver verified no other encounters exist for this prescription request: Yes Caregiver confirmed with patient/requestor that no other refills are due, in the near future, with this provider at this time: Yes The last office visit in the department: 10-14-23 Does the patient have a future office visit with this provider/department: Yes Requested Prescriptions Pending Prescriptions Disp Refills PARoxetine (PAXIL) 20 mg tablet 90 tablet 1 Sig: Take 1 tablet by mouth once daily. In the evening Yumiko Gomez October 18, 2023 8:58 AM documented in this encounterMi[facility]06-[facility] Telephone encounter Note * Telephone Encounter - GloriaYumiko Zavala - 10/18/2023 8:56 AM EDT Prescription Refill Information The patient has been identified by name and date of : Yes Caregiver verified no other encounters exist for this prescription request: Yes Caregiver confirmed with patient/requestor that no other refills are due, in the near future, with this provider at this time: Yes The last office visit in the department: 10-14-23 Does the patient have a future office visit with this provider/department: Yes Requested Prescriptions Pending Prescriptions Disp Refills PARoxetine (PAXIL) 20 mg tablet 90 tablet 1 Sig: Take 1 tablet by mouth once daily. In the evening Yumiko Gomez October 18, 2023 8:58 AM [facility] History of Present illness Narrative* Key Portillo APRN.HATCHERY MAN - 10/14/2023 1:20 PM EDT Chief Complaint Patient presents with: Transition Of Care HPI Michael Meier is a 83 year old female who presents here today for Above Complaints. Michael is an established patient of Dr. Puga, and myself. Concerns today... Hospital follow-up -- [facility] ER visit on 09/26 d/t SOB. Pt was found to have 103F fever and hypoxia of 87% on RA by EMS. Pt placed on O2 NC therapy to keep O2 sat above 90%. EKG was NSR rate of 75 CXR showed bilateral multifocal inflitrates. Pt started on IV rocephin and azithromycin. Admitted d/t pneumonia with hypoxia and new O2 need. Sputum culture was negative for bacteria growth. Presumed to be viral pneumonia. Lasix and steroids helped improve symptoms. Pt discharged on O2 4L with exertion and 2L at rest. Discharged on 10/01 with prednisone taper and albuterol inhaler prn. Pt had lab work done on 10/07 to monitor kidney function d/t high lasix regimen inpatient. Scanned inchart. Labs were stable with Cr and GFR normal. BUN at 28 and Sodium at 133. Glucose at 172. In office today.. Pt reports feeling much better since discharge. Has one day left of prednisone taper. retirement coming to house weekly -- likely last visit will be on Wednesday. Pt and custodial monitoring O2 saturation. Pt has not been wearing o2 anymore d/t pulse ox between 94-97% on RA. Still wearing 2L at night with BiPAP. Pt does not have o2 therapy on in office either. Pulse ox > 93% on RA with exertion as well per pt. Sleep -- Needs something for sleep. Ativan was helping but only lasts a few hours now. Pt does report ativan works well for panic attacks as needed but not for sleep. Does not want to be on ambien and does not want anything that will make her feel like a hangover the next day. No other concerns or complaints. Past medical history, appointments, medications, allergies reviewed. Previous Medical History PAST MEDICAL HISTORY Diagnosis Date A-fib (HCC) Allergic rhinitis, cause unspecified Arrhythmia Arthritis Greater trochanteric bursitis of left hip Melanoma of skin, site unspecified 2003 back Osteoarthritis of left hip Other and unspecified hyperlipidemia Situational mixed anxiety and depressive disorder Sleep apnea Stroke (HCC) Unspecified essential hypertension Unspecified gastritis and gastroduodenitis Previous Surgical History PAST SURGICAL HISTORY Procedure Laterality Date ABDOMINAL SURGERY HX APPENDECTOMY HX ARTHRP ACETBLR/PROX FEM PROSTC AGRFT/ALGRFT 12/09/2003 right hip, redone, 07/2004 ARTHRP ACETBLR/PROX FEM PROSTC AGRFT/ALGRFT Left 07/2016 ARTHRP KNE CONDYLE&PLATU MEDIAL&LAT COMPARTMENTS 11/15/2009 Knee replacement, total -Left - [facility] ARTHRP KNE CONDYLE&PLATU MEDIAL&LAT COMPARTMENTS 12/30/2009 Right knee replaced COLONOSCOPY FLX DX W/COLLJ SPEC WHEN PFRMD 06/29/2017 Colonoscopy EGD 10/17/2020 EGD W/O [facility] SPEC VARICIES INJ 01/08/2022 ESOPHAGOGASTRODUODENOSCOPY TRANSORAL DIAGNOSTIC 11/29/2000 EGD ESOPHAGOGASTRODUODENOSCOPY TRANSORAL DIAGNOSTIC 06/29/2017 EGD JOINT REPLACEMENT HX LAPS SURG CHOLECYSTECTOMY W/CHOLANGIOGRAPHY PACEMAKER IMPLANT 01/2011 SKIN BIOPSY HX TONSILLECTOMY HX TOTAL ABDOMINAL HYSTERECT W/WO RMVL TUBE OVARY Hysterectomy, GAL Family History FAMILY HISTORY Problem Relation Age of Onset Coronary Artery Disease Mother other (cardiac arrest) Mother Coronary Artery Disease Father Diabetes Father other (congestive heart failure) Father Patient Allergies ALLERGIES Allergen Reactions Ciprofloxacin Rash Demerol [Meperidine* Vomiting Opioids - Morphine * Intolerance nausea, dizzy, sees things Opioids-Meperidine * nausea/vomiting Penicillin G hives Pravachol [Pravasta* Other: See Comments Leg cramps Sulfa (Sulfonamide * hives Vicodin [Hydrocodon* Intolerance dizzy,nausea,vomiting,headache Zithromax [Azithrom* Intolerance Current Medications Current Outpatient Medications on File Prior to Visit Medication Sig guaiFENesin (MUCINEX) 600 mg 12 hr tablet Take 1 tablet by mouth two times a day as needed for cold/allergy symptoms. levothyroxine (SYNTHROID) 25 mcg tablet Take 1 tablet by mouth once daily. In the morning, Take on empty stomach at least 30 min before eating. For thyroid. PARoxetine (PAXIL) 20 mg tablet Take 1 tablet by mouth once daily. In the evening vitamin B complex (B COMPLEX 1 ORAL) Take by mouth. ferrous sulfate (SLOW FE ORAL) Take by mouth twice daily. RESTASIS 0.05 % ophthalmic emulsion Azelastine HCl (OPTIVAR) 0.05 % ophthalmic solution albuterol HFA (PROVENTIL HFA, VENTOLIN HFA) 90 mcg/actuation inhaler Inhale 2 Puffs as instructed every 4 hours as needed. rosuvastatin (CRESTOR) 10 mg tablet Take 1 tablet by mouth daily at bedtime. LORazepam (ATIVAN) 0.5 mg Take 1 tablet by mouth twice daily as needed (anxiety attack). hydroCHLOROthiazide (HYDRODIURIL, ESIDRIX) 12.5 mg capsule Take 2 capsules by mouth once daily. sucralfate (CARAFATE) 100 mg/mL suspension Take 10 mL by mouth four times daily. Cholecalciferol, Vitamin D3, 50 mcg (2,000 unit) cap Take 1 capsule by mouth once daily. aspirin, enteric coated (ASPIRIN, ENTERIC COATED) 81 mg EC tablet Take 81 mg by mouth once daily. PACERONE 200 mg tablet Take 200 mg by mouth once daily. ubidecarenone (COQ-10 ORAL) Take by mouth. diltiazem CD (CARDIZEM CD) 240 mg 24 hr capsule Take 1 capsule by mouth once daily. losartan (COZAAR) 100 mg tablet Take 1 tablet by mouth once daily. No current facility-administered medications on file prior to visit. Social History Social History Tobacco Use Smoking status: Never Smokeless tobacco: Never Vaping Use Vaping Use: Never used Substance Use Topics Alcohol use: Not Currently Comment: rarely Drug use: No REVIEW OF SYSTEMS: as above Reviewed relevant PMHx, PSHx, Social Hx, current medications and allergies. Review of Symptoms REVIEW OF SYSTEMS See HPI. EXAM: BP 142/58 (BP Site: Left Arm, BP Position: Sitting, BP Cuff Size: Large Adult) Pulse 68 Resp 16 Wt 102.1 kg (225 lb) BMI 38.46 kg/m General Appearance: Well appearing, alert, in no acute distress, well-hydrated, well nourished.. Skin: Skin color, texture, turgor normal, no suspicious rashes or lesions. Head: Normocephalic, no masses, lesions, tenderness or abnormalities. Lungs: Lungs clear to auscultation. No wheezing, rhonchi, rales.. Heart: RRR without murmur, gallop, or rubs. No ectopy. Pulse ox at rest on RA: 97% Walking pulse ox on RA: 95% Health Maintenance List Advance Directive Discussion Never done RSV Vaccine(1 - 1-dose 60+ series) due on 10/13/2024 Covid-19 Vaccine(2022- season) due on 10/13/2024 Diabetes Screening due on 03/31/2026 DTaP,Tdap,Td Vaccine(3 - Td or Tdap) due on 12/24/2028 Bone Density Screening Completed Influenza Vaccine Completed Shingrix Vaccine Completed Pneumococcal Vaccine: 65+ Completed HPV Vaccine Aged Out Colorectal Cancer Screening Discontinued Last 14 Encounter BP Readings: Date: BP: 10/14/2023 142/58 04/05/2023 120/80 01/08/2023 148/84 12/22/2022 130/62 09/21/2022 136/80 06/22/2022 128/68 06/04/2022 164/80 04/21/2022 124/74 02/16/2022 146/70 01/08/2022 163/72 12/18/2021 138/70 12/16/2021 136/70 10/20/2021 134/80 06/13/2021 164/76 ASSESSMENT/PLAN: 1. Hospital discharge follow-up - ICD9: V67.59, ICD10: Z09 (primary diagnosis) Complete prednisone. Recovering well, no new symptoms. Discontinue o2 therapy during the day d/t pulse o2 with rest and exertion > 93% on RA. Continue O2 therapy at night, especially d/t poor sleep. Continue with at home custodial visits. 2. Anxiety - ICD9: 300.00, ICD10: F41.9 Stable, refilled. - LORAZEPAM 0.5 MG TABLET 3. TIA (transient ischemic attack) - ICD9: 435.9, ICD10: G45.9 Stable, refilled. - ROSUVASTATIN 10 MG TABLET 4. Hyperlipidemia, unspecified hyperlipidemia type - ICD9: 272.4, ICD10: E78.5 Stable, refilled. - ROSUVASTATIN 10 MG TABLET 5. Sleep disturbances - ICD9: 780.50, ICD10: G47.9 Trial trazodone 50 mg at bedtime. - TRAZODONE 50 MG TABLET 6. Community acquired pneumonia, unspecified laterality - ICD9: 486, ICD10: J18.9 See above. Recovering well without complications. 7. On supplemental oxygen therapy - ICD9: V46.2, ICD10: Z99.81 See above. Discontinue o2 therapy during the day d/t pulse o2 with rest and exertion > 93% on RA. Continue O2 therapy at night, especially d/t poor sleep. Continue with at home custodial visits. RTO in 1.5 months as scheduled, sooner if needed. Prescription instructions reviewed with patient as applicable. Potential red flag symptoms discussed with the patient. Reviewed appropriate action plan to take if red flag symptoms occur. Patient agreeable to treatment plan. Key Abrams APRN.HATCHERY MAN [address] [place] [address] documented in this encounterMi[facility]06[facility] History of Present illness Narrative* Isabella Michel RN - 10/11/2023 1:16 PM EDT TRANSITION CARE MANAGEMENT (TCM) FOLLOW-UP NOTE Provider Action/FYI Patient identified by name and date of : YES Spoke to patient Discharge Network Status: Kay-fl-Iresjhk (OON) Discharge Summary: [facility]. Admitted for: Shortness of breath Concerns: Pt reports she is doing well and feeling much improved. She is 96% pulse ox on RA. States the nurse with [facility] states her lungs were clear today. has fam med f/u 10/13. Pressure Tester plan for next outreach: TCM will continue to follow. IRENE Education Ordered -: No Isabella Michel RN October 11, 2023 1:16 PM documented in this encounterMiami [facility] Hospital06-06-2024 Telephone encounter Note * Telephone Encounter - Loli Adamson RN - 10/07/2023 10:23 AM EDT Re-faxed CMP order to [facility] per Ernestine request. Reports they did not receive it yesterday. [facility] Miscellaneous Notes* Telephone Encounter - Loli Adamson RN - 10/07/2023 10:23 AM EDT Re-faxed CMP order to [facility] per Ernestine request. Reports they did not receive it yesterday. * Telephone Encounter - Katharine Paul MA - 10/07/2023 9:14 AM EDT Spoke Ernestine and faxed order * Telephone Encounter - Michael Puga DO - 10/06/2023 10:41 PM EDT Ok to check labs as ordered below If not improving, then will need stool studies/C diff testing Michael Puga DO * Telephone Encounter - Mary Lopez LPN - 10/06/2023 12:00 PM EDT Ernestine with [facility] calling, she spoke with patient today. Patient is doing well recovering from thepneumonia other than she has had diarrhea for 3 days. Today is the worst day and she is having a BMevery time she is urinating. Ernestine states the biggest concern would be dehydration. Asking if PCP has any recommendation. Please advise. documented in this encounterMiami [facility] Hospital06-06-2024 Telephone encounter Note * Telephone Encounter - Katharine Paul MA - 10/07/2023 9:14 AM EDT Spoke Ernestine and faxed order [facility] Telephone encounter Note* Telephone Encounter - Michael Puga DO - 10/06/2023 10:41 PM EDT Ok to check labs as ordered below If not improving, then will need stool studies/C diff testing Michael Puga DO [facility] Telephone encounter Note* Telephone Encounter - Mary Lopez LPN - 10/06/2023 12:00 PM EDT Ernestine with [facility] calling, she spoke with patient today. Patient is doing well recovering from thepneumonia other than she has had diarrhea for 3 days. Today is the worst day and she is having a BMevery time she is urinating. Ernestine states the biggest concern would be dehydration. Asking if PCP has any recommendation. Please advise. [facility] Telephone encounter Note* Telephone Encounter - Katharine Paul MA - 10/06/2023 9:14 AM EDT Nurse from [facility] was notified Katharine Paul MA [facility]06-05-[facility] Miscellaneous Notes* Telephone Encounter - Katharine Paul MA - 10/06/2023 9:14 AM EDT Nurse from [facility] was notified Katharine Paul MA * Telephone Encounter - Michael Puga DO - 10/06/2023 9:01 AM EDT Please make sure her Pocket Flap Creasing Machine Operator is aware of her BLOOD PRESSURE elevation to get recommendations on medication adjustment. rx for mucinex as sent in as below Would need an appointment to start on new sleeping medication. Could try to take 2 tablets of the Ativan 0.5 mg in the evening to see if this helps her Michael Puga DO The following approved medication requests have been transmitted electronically. Requested Prescriptions Signed Prescriptions Disp Refills guaiFENesin (MUCINEX) 600 mg 12 hr tablet 60 tablet 2 Sig: Take 1 tablet by mouth two times a day as needed for cold/allergy symptoms. Authorizing Provider: MICHAEL PUGA DO * Telephone Encounter - Constance Ervin LPN - 10/04/2023 3:52 PM EDT -Bhavna reports pt was admitted to [facility] nursing today. Bhavna reports Nursing will see pt twice a week x 1 week, then once a week x 2 weeks. Bhavna reports pt still has a nasty cough. Bhavna reports pt has been taking otc Mucinex but is it expensive for pt. Bhavna is asking if provider would want to order for pt. -BP today was 178/88. Pt told Bhavna that is what it was running in the hospital. Pt is taking hctz 12/5 bid, am, Cardizem, losartan, and amlodipine. -Pt is asking for something for sleep but not Ambien because she has heard bad things about it. Pt's dog had to be put down while she was in the hospital and she is used to dog sleeping in her bed. She has lorazepam 0.5 mg tab but advised Bhavna that the medication relaxes her but does not help her sleep. -Pt was sent home on prednisone taper. -Pt is using preservision bid - is this ok -Pt is on O2 from Dr. Alcala. -Pt is not taking Vit D3 1999. CAll Bhavna with provider message/orders. Constance Ervin LPN documented in this encounterMiami Valley Hospital06-05-2024 Telephone encounter Note * Telephone Encounter - Michael Puga DO - 10/06/2023 9:01 AM EDT Please make sure her Pocket Flap Creasing Machine Operator is aware of her BLOOD PRESSURE elevation to get recommendations on medication adjustment. rx for mucinex as sent in as below Would need an appointment to start on new sleeping medication. Could try to take 2 tablets of the Ativan 0.5 mg in the evening to see if this helps her Michael Puga DO The following approved medication requests have been transmitted electronically. Requested Prescriptions Signed Prescriptions Disp Refills guaiFENesin (MUCINEX) 600 mg 12 hr tablet 60 tablet 2 Sig: Take 1 tablet by mouth two times a day as needed for cold/allergy symptoms. Authorizing Provider: MICHAEL PUGA DO [facility] Telephone encounter Note* Telephone Encounter - Constance Ervin LPN - 10/04/2023 3:52 PM EDT -Bhavna reports pt was admitted to [facility] nursing today. Bhavna reports Nursing will see pt twice a week x 1 week, then once a week x 2 weeks. Bhavna reports pt still has a nasty cough. Bhavna reports pt has been taking otc Mucinex but is it expensive for pt. Bhavna is asking if provider would want to order for pt. -BP today was 178/88. Pt told Bhavna that is what it was running in the hospital. Pt is taking hctz 12/5 bid, am, Cardizem, losartan, and amlodipine. -Pt is asking for something for sleep but not Ambien because she has heard bad things about it. Pt's dog had to be put down while she was in the hospital and she is used to dog sleeping in her bed. She has lorazepam 0.5 mg tab but advised Bhavna that the medication relaxes her but does not help her sleep. -Pt was sent home on prednisone taper. -Pt is using preservision bid - is this ok -Pt is on O2 from Dr. Alcala. -Pt is not taking Vit D3 1999. CAll Bhavna with provider message/orders. Constance Ervin LPN [facility] History of Present illness Narrative* Magaly Puri MA - 10/04/2023 11:17 AM EDT POPULATION HEALTH NAVIGATION OUTREACH Action/FYI [facility] Hospital Discharge Follow up. TCM Eligible until 10/16/23. Pt cell [phone] Spoke with patient; scheduled appt Reason for Outreach Community Monitoring/Network Navigator Pools & Phone Line: TCM Patient Contacted: Spoke to patient/parent/or legal guardian Patient identified by name and : Yes Community Monitoring/Network Navigator Pools & Phone Line actions taken: Patient scheduled: Hospital Follow-up Navigation Signature: Magaly Puri MA October 04, 2023 11:17 AM * Isabella Michel RN - 10/04/2023 10:37 AM EDT TRANSITIONAL CARE MANAGEMENT ([facility]) [facility] MONITORING PROGRAM Provider Action/FYI: Pt reports she is wearing O2 at 2L at night and 4L during the day. Has some SOB with any exertion and she has ordered to pulse ox. Discussed safe parameters for the pulse ox - 92-93 % and above. Pt states Prednisone rx at discharge, doing breathing treatments diligently. [facility] nursing to visit today. Encouraged pt to bring DC papers to PCP f/u Navigation Team Please assist with scheduling TCM Hospital Discharge Follow up. TCM Eligible until 10/16/23. Pt [phone] Thank you SUMMARY: Discharge Network Status: Otr-ki-Pdjukty (OON) Discharge Pt discharged from [facility] on 10[facility]02[facility]23. Admitted for: Shortness of breath Copied from Care everywhere : Narrative: 83-year-old female presenting with shortness of breath. She states that she started having a dry cough on Wednesday. She states she has not had a productive cough. She states that it is a painful coughwhen she coughs but is not having chest pain otherwise. She is short of breath progressively throughout the week. She states this afternoon it really started to get worse. She states she was seen at urgent care yesterday and tested for COVID, flu. These were negative. She states that she was also started on an antibiotic that she is supposed to take twice a day but she cannot recall what it is. She did not bring it with her. She states that she was told she had 103 ?F fever by EMS on the way and she states she was given 324 mg of aspirin because EMS was concerned she might have sepsis. She states that she has not had a fever throughout the week. She does have a history of A-fib but is not having palpitations. Patient is not on anticoagulation. Patient does states she sees Dr. Potts but states she does not have asthma or COPD. She states she saw him to obtain a BiPAP that she usesat night. Initially she stated she cleaned this daily but then stated that she cleans it once a week. Patient 87% on room air prior to arrival. She is currently on 4 L. TCM Home Visit Referral Source of Stratification: TCM [facility] Hospital Admission Status: Discharged Readmission Risk Score: N/A Patient's zip code: N/A Is zip code within program service area: No Patient meets program referral criteria: No Patient does not qualify for High Risk TCM Home Visit program due to: Readmission Risk Score does not meet criteria Disposition: Patient does not qualify for HRTIC, will provide TCM outreach follow-up for 30-days Isabella Michel RN October 04, 2023 10:40 AM Contact made with patient: Yes Hi my name is Isabella Michel RN and I am calling from the [facility] on behalf of yourPCP, Michael Puga, DO I understand you were recently in the hospital so I am calling to check in with you to ensure you are feeling well now that you're home. May I ask you a few questions related to your hospital stay and well-being? Yes Contact with patient post discharge, spoke to patient. Patient identified by name and . Do you feel your health is BETTER, WORSE, or the SAME since leaving the hospital? Same ACTION TAKEN: Patient indicated symptoms are better or same, no action required. Continue outreach. MEDICATIONS: Many patients have questions or concerns about their medications once they are home. Do you have any questions about taking your medications or which medication you should be on? No Do you need any medication refills at this time, including any of the medications you might take only when needed? No ACTION TAKEN: No action required For RNs or Pharmacy completing outreach ONLY, was a medication review completed? No No med changes made - pt declines review SOCIAL: We would like to make sure you have what you need so that your basics needs are met - including your personal safety, food, housing and medications. Would you like to speak with a social work steam frame operator to help give you support for any of these needs? Not assessed It can be normal to feel anxious or down during a time like this. Would you like to talk to a mental health professional about how you have been feeling? not assessed ACTION TAKEN: No action taken DISCHARGE INTRUCTIONS: Your discharge instructions / After Visit Summary (AVS) are important in guiding you through the recovery process. Do you have any questions related to your discharge instructions? No Do you have all the necessary equipment and supplies at home? Yes ACTION TAKEN: No action required I would like to help you schedule a hospital follow-up virtual or telephone visit with your PCP. This is a great way for you to connect with your provider to ensure you have safely transitioned home.If you are agreeable, I will send your request to a material scheduler who will contact and assist you with that appointment. This will give you an opportunity to ask any questions or address any concerns youmay have with your PCP. Inform the patient that if they have any questions or concerns prior to that appointment, to call their PCP's office right away. ACTION TAKEN: Patient desires an appointment - Routed to [facility] [[id number]] for schedulingtelehealth visit (telephonic, virtual visit, or Facetime) within 7 days of discharge with PCP care team. Indicate hospital follow-up appointment needed within 7 days in Provider/FYI box. End Outreach. Your doctor would like us to remind you of the recommendations regarding the coronavirus (Covid19) outbreak: Avoid public places as much as possible. Avoid close contact (within 6 feet) with others you don t live with, especially if they are sick. Stay home if you are sick. Wash your hands regularly for at least 20 seconds with soap and water. Wear a cloth mask in public places to help reduce community spread. Do not go to your Doctor s office unless instructed to do so. For any non- emergency symptoms, call your Doctor s office to get instructions on how to manage (we might recommend a telephone or virtualvisit). For emergency symptoms, proceed to Emergency Department as usual but inform them of cough and fever symptoms DIRK if present (or call on the way if possible). IRENE Education Ordered -: No Isabella Michel RN October 04, 2023 10:51 AM documented [facility] Telephone encounter Note * Telephone Encounter - Jacque Machuca MA - 10/01/2023 3:36 PM EDT Larissa informed. Jacque Machuca MA [facility]05-[facility] Miscellaneous Notes* Telephone Encounter - Jacque Machuca MA - 10/01/2023 3:36 PM EDT Larissa informed. Jacque Machuca MA * Telephone Encounter - Key Portillo APRN.CNP - 10/01/2023 2:39 PM EDT Yes, PCP will follow. Thank you, Key Portillo APRN.CNP * Telephone Encounter - Mary Lopez LPN - 10/01/2023 11:49 AM EDT Larissa from [facility] calling, patient is being discharged from [facility] tomorrow. She was referred for custodial for O2 management. They plan to see patient Wednesday. Asking if PCP is willing to follow.Please advise. documented in [facility]24 Telephone encounter Note * Telephone Encounter - Key Portillo APRN.CNP - 10/01/2023 2:39 PM EDT Yes, PCP will follow. Thank you, Key Portillo APRN.CNP [facility] Telephone encounter Note* Telephone Encounter - Mary Lopez LPN - 10/01/2023 11:49 AM EDT Larissa from [facility] calling, patient is being discharged from [facility] tomorrow. She was referred for custodial for O2 management. They plan to see patient Wednesday. Asking if PCP is willing to follow.Please advise. [facility] History of Present illness Narrative* Michael Puga Alyssa, DO - 04/08/2023 9:38 AM EST CC: Michael Meier is a 82 year old female who presents to the office for follow up HPI: At OFFICE VISIT on 09/21/22 Iron deficiency, improving control, taking over the counter iron supplement once a day called Slo Fe 45 mg a day. No blood in stool. Also knows needs to improve her diet of iron rich foods. Still fatigue symptoms and feels that she has significant bags under her eyes that bother her due to appearance. Having some shortness of breath and fatigue symptoms that are chronic. Has been seeing CardiologistDr. Hickey. No chest pressure or pain. No fevers or chills. Long standing symptoms Arthritis multiple joints. Admits that she hasn't been exercising. knows also need for weight loss but not always eating how she should. Trying to drink a protein shake daily. Mood, does feel that the Paxil medication is helping her as well as prn use of Ativan for panic, noSI or HI. Enjoys hanging out with her male friend and going out to eat with friends. At office visit December Mood, stable, she is still going out to eat as able with her male friend and other friends. Taking medication as prescribed Overeating, binge eating, obesity, doesn't feel that the topamax has been helpful. Wondering if should stop the medication + fatigue, continues to have symptoms. Has recently seen Dr. Hickey Pocket Flap Creasing Machine Operator and had repeat ECHOand other cardiac testing without any concerning findings. Having some shortness of breath and fatigue symptoms that are chronic. Has been seeing CardiologistDr. Hickey. No chest pressure or pain. No fevers or chills. Long standing symptoms but does feel it is worsening. ECHO showed normal Ejection fracture and no heart failure MIRACLE, admits that she recently changed from slo fe twice a day with meals to a liquid iron. Doesn't feel it is as effective. Labs are worsening with iron and tranferrin saturation, normal hemoglobin- no anemia. Currently Obesity, she is still aware of the need for weight loss. She struggles with controlling her sugar cravings and overeating. Fatigue seems to be stable She is finding enjoyment with a new male friend that she has and she is able to do activities with him and go out to do things together such as going to see [employer] and go out to eat. Abnormal thyroid function testing, she is willing to try thyroid medication to see if this helps her TSH Date Value Ref Range Status 03/31/2023 2.940 0.270 - 4.200 mIU/L Final Free T4 Date Value Ref Range Status 03/31/2023 1.8 (H) 0.9 - 1.7 ng/dL Final Free T3 2.2 06/13/2021 PAST MEDICAL HISTORY Diagnosis Date A-fib (HCC) Allergic rhinitis, cause unspecified Arrhythmia Arthritis Greater trochanteric bursitis of left hip Melanoma of skin, site unspecified 2003 back Osteoarthritis of left hip Other and unspecified hyperlipidemia Situational mixed anxiety and depressive disorder Sleep apnea Stroke (HCC) Unspecified essential hypertension Unspecified gastritis and gastroduodenitis PAST SURGICAL HISTORY Procedure Laterality Date ABDOMINAL SURGERY HX APPENDECTOMY HX ARTHRP ACETBLR/PROX FEM PROSTC AGRFT/ALGRFT 12/09/2003 right hip, redone, 07/2004 ARTHRP ACETBLR/PROX FEM PROSTC AGRFT/ALGRFT Left 07/2016 ARTHRP KNE CONDYLE&PLATU MEDIAL&LAT COMPARTMENTS 11/15/2009 Knee replacement, total -Left - [facility] ARTHRP KNE CONDYLE&PLATU MEDIAL&LAT COMPARTMENTS 12/30/2009 Right knee replaced COLONOSCOPY FLX DX W/COLLJ SPEC WHEN PFRMD 06/29/2017 Colonoscopy EGD 10/17/2020 EGD W/O [facility] SPEC VARICIES INJ 01/08/2022 ESOPHAGOGASTRODUODENOSCOPY TRANSORAL DIAGNOSTIC 11/29/2000 EGD ESOPHAGOGASTRODUODENOSCOPY TRANSORAL DIAGNOSTIC 06/29/2017 EGD JOINT REPLACEMENT HX LAPS SURG CHOLECYSTECTOMY W/CHOLANGIOGRAPHY PACEMAKER IMPLANT 01/2011 SKIN BIOPSY HX TONSILLECTOMY HX TOTAL ABDOMINAL HYSTERECT W/WO RMVL TUBE OVARY Hysterectomy, GAL Current Outpatient Medications Medication Sig PARoxetine (PAXIL) 20 mg tablet Take 1 tablet by mouth once daily. In the evening vitamin B complex (B COMPLEX 1 ORAL) Take by mouth. ferrous sulfate (SLOW FE ORAL) Take by mouth twice daily. RESTASIS 0.05 % ophthalmic emulsion Azelastine HCl (OPTIVAR) 0.05 % ophthalmic solution albuterol HFA (PROVENTIL HFA, VENTOLIN HFA) 90 mcg/actuation inhaler Inhale 2 Puffs as instructed every 4 hours as needed. rosuvastatin (CRESTOR) 10 mg tablet Take 1 tablet by mouth daily at bedtime. LORazepam (ATIVAN) 0.5 mg Take 1 tablet by mouth twice daily as needed (anxiety attack). sucralfate (CARAFATE) 100 mg/mL suspension Take 10 mL by mouth four times daily. Cholecalciferol, Vitamin D3, 50 mcg (2,000 unit) cap Take 1 capsule by mouth once daily. aspirin, enteric coated (ASPIRIN, ENTERIC COATED) 81 mg EC tablet Take 81 mg by mouth once daily. PACERONE 200 mg tablet Take 200 mg by mouth once daily. ubidecarenone (COQ-10 ORAL) Take by mouth. diltiazem CD (CARDIZEM CD) 240 mg 24 hr capsule Take 1 capsule by mouth once daily. losartan (COZAAR) 100 mg tablet Take 1 tablet by mouth once daily. levothyroxine (SYNTHROID) 25 mcg tablet Take 1 tablet by mouth once daily. In the morning, Take on empty stomach at least 30 min before eating. For thyroid. hydroCHLOROthiazide (HYDRODIURIL, ESIDRIX) 12.5 mg capsule Take 2 capsules by mouth once daily. Current Facility-Administered Medications Medication Dose Route Frequency perflutren lipid microspheres 1.3 mL in NaCl (PF) 0.9% 10 mL injection (DEFINITY) INTRAVENOUS DIRECTED PRN sodium chloride 0.9 % (flush) 10 mL (BD POSIFLUSH) 10 mL INTRAVENOUS DIRECTED PRN ALLERGIES Allergen Reactions Ciprofloxacin Rash Demerol [Meperidine* Vomiting Opioids - Morphine * Intolerance nausea, dizzy, sees things Opioids-Meperidine * nausea/vomiting Penicillin G hives Pravachol [Pravasta* Other: See Comments Leg cramps Sulfa (Sulfonamide * hives Vicodin [Hydrocodon* Intolerance dizzy,nausea,vomiting,headache Zithromax [Azithrom* Intolerance Social History Tobacco Use Smoking status: Never Smokeless tobacco: Never Vaping Use Vaping Use: Never used Substance Use Topics Alcohol use: Not Currently Comment: rarely Drug use: No ROS: See HPI PE: BP 120/80 Pulse 64 Temp (Src) 97.2 (Left Tympanic) Resp 16 Wt 224 lb (101.6kg) Gen: A&OX3, NAD, non-toxic appearing HEENT: PERRLA, wearing glasses, EOMs intact b/l, nares without drainage, pharynx without erythema, exudate, lesions, or drainage. Uvula midline. MMM, EAC and normal TM b/l Neck: No LAD, no thyromegaly, no meningismus. CV: RRR, no murmur, normal s1s2 Lungs: CTA b/l, no wheezing No edema, normal pulses Skin: No rashes, lesions, or wounds on exposed skin. Arthritis multiple joints ASSESSMENT/PLAN: 1. Subclinical hypothyroidism - ICD9: 244.8, ICD10: E03.8 (primary diagnosis) - Instructed patient on importance of taking on an empty stomach either first thing in the morning or at bedtime. Start on medication levothyroxine 25 mcg a day and recheck labs in 2-3 months as ordered. 2. Need for influenza vaccination - ICD9: V04.81, ICD10: Z23 - INFLUENZA VACCINE, PRSV FREE, AGE 65+ YR, HIGH DOSE, QUADRIVALENT (FLUZONE HIGH-DOSE) 3. Need for COVID-19 vaccine - ICD9: V04.89, ICD10: Z23 - [employer] COVID-19 VACCINE ( SEASON) AGE 12+ YR 4. Thyroid disease - ICD9: 246.9, ICD10: E07.9 - Instructed patient on importance of taking on an empty stomach either first thing in the morning or at bedtime. Start on medication levothyroxine 25 mcg a day and recheck labs in 2-3 months as ordered. - LEVOTHYROXINE 25 MCG TABLET - TSH BLD - T4 FREE/FREE THYROX - T3 FREE BLD 5. Situational mixed anxiety and depressive disorder - ICD9: 309.28, ICD10: F43.23 Stable, continue Paxil 6. Fatigue, unspecified type - ICD9: 780.79, ICD10: R53.83 Stable, continue same medications and add on levothyroxione 7. Obstructive lung disease (HCC) - ICD9: 496, ICD10: J44.9 F/u with [employer] 8. IFG (impaired fasting glucose) - ICD9: 790.21, ICD10: R73.01 stable 9. Vitamin B12 deficiency - ICD9: 266.2, ICD10: E53.8 Continue supplement, stable 10. Primary hypertension - ICD9: 401.9, ICD10: I10 - Controlled - Continue current medications - Recommend home blood pressure monitoring, to bring results to next visit - Encouraged sodium restriction, DASH or Mediterranean diet - Recommend regular aerobic exercise 11. Vitamin D deficiency - ICD9: 268.9, ICD10: E55.9 Continue supplement, stable 12. Paroxysmal atrial fibrillation (HCC) - ICD9: 427.31, ICD10: I48.0 - stable 13. Arthritis, multiple joint involvement - ICD9: 716.99, ICD10: M12.9 Stable, no falls iMchael Puga DO Return if no improvement. Follow up with Michael Puga DO. To ER if develops chest pain, shortness of breath. Discussed risks, benefits, alternatives, and potential side effects of medications. Patient/Guardian expressed understanding and agreed with the plan. See patient instructions. Michael Puga DO [address] [place] [address] documented in this encounterMi[facility]11-30-[facility]23 Miscellaneous Notes* Telephone Encounter - Nadine Colon LPN - 04/01/2023 4:20 PM EST Phoned patient and went over notes from Dr Puga with understanding. * Telephone Encounter - Michael Puga DO - 03/31/2023 8:32 PM EST We called the police booking officer office but she will need to further discuss with the specialist as well Michael Puga DO * Telephone Encounter - Loli Adamson RN - 03/31/2023 2:45 PM EST Patient asking if pcp ever communicated with Dr. Hickey about her diltiazem making her tired. Pleaseadvise patient. documented in this encounterMi[facility]09-11-2023 Miscellaneous Notes* Telephone Encounter - Amanda Pratt RN - 01/11/2023 11:25 AM EDT Order and demographics faxed to Dr. Alcala. Patient notified. * Telephone Encounter - Key Portillo APRN.CNP - 01/11/2023 10:18 AM EDT Order placed. Please fax. Thank you, Key Portillo APRN.HATCHERY MAN * Telephone Encounter - Amanda Pratt RN - 01/11/2023 9:57 AM EDT Patient calls to report that at last OV it was discussed that patient needed to have a sleep study done. Patient requesting to have done with Dr. Alcala and needs to have order/reason for testing faxed to [phone]. Noted referral to pulmonary medicine which was completed but no order for sleep study. Not pended. Wasn't sure what provider wanted. Amanda Pratt RN documented in this encounterMi[facility] Hospital08-31-2023 Miscellaneous Notes* Telephone Encounter - Chloe Castro LPN - 12/31/2022 8:43 AM EDT Spoke with pt and information listed below given. Pt verbalizes understanding. Transferred pt to material scheduler to get apt booked. Chloe Castro LPN * Telephone Encounter - Jacque Machuca - 12/31/2022 8:30 AM EDT Attempted to reach patient with no answer. Left message to return call. Jacque Machuca * Telephone Encounter - Bhavna Arauz RN - 12/31/2022 8:29 AM EDT TC patient, left message for patient to call back and speak with a triage nurse regarding results and provider instructions. Bhavna Arauz RN * Telephone Encounter - Michael Puga DO - 12/30/2022 10:27 PM EDT Please inform patient that her CXR shows mild scarring in the left lung base, otherwise is normal Her spirometry breathing test is showing some possible small airway obstruction changes with response to albuterol. I would like her to see the Home Energy Rater for opinion to determine if any chance ofasthma or COPD present Michael Puga DO documented in this encounterMi[facility]08-28-2023 History of Present illness Narrative* Lexi Peacock RPFT - 12/28/2022 2:00 PM EDT PULM FUNCTION SMARTBLOCK: Provider: Michael Puga DO Assisting Tech: Lexi Peacock RPFT Spirometry w/BD: 1 documented in this encounterMiami [facility] Hospital08-22-2023 History of Present illness Narrative* Michael Puga DO - 12/22/2022 5:10 PM EDT CC: Michael Meier is a 82 year old female who presents to the office for follow up HPI: Seen in office on 06/13/21, at that time: HTN, recently elevated, no CP or dyspnea or dizziness/LH, taking her medications as prescribed- losartan AM and diltiazem PM. CAD, PAD, taking medications as prescribed. Mood, overall feels she is coping okay with use of the Lexapro, rare use of Ativan. Getting some help with her disabled brother since he was just recently moved into a [place]. + fatigue, admits that she doesn't want to leave her home much recently, but denies that her depression is out of control. Did lose one of her best friends from covid 19 complication in Apr around her birthday time Just had pacemaker replaced 1 week ago, after previous was in place 12 years, still taking amiodarone, still going into Atrial fib off and on BLOOD PRESSURE has been elevated recently, no other symptpoms At follow up on 12/16/21 HTN, seems to be stable, denies any CP or dyspnea or dizziness/LH or edema. Has had episodes of hyponatremia. 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 Feels this doesn't make her feel well. Fatigue symptoms, feels she is more isolated for the last 2 years since covid 19 pandemic and limitations with getting out with friends. Also brother Serg [place] now and she is home alone. Has been on Lexapro for years- thinks this medication isn't working well to help her depressed mood. No SI or HI. Thinks medication needs changes. Taking the ativan with benefit for anxiety attack/panic feeling She was tapered off the lexapro and started on Paxil At last OFFICE VISIT on 02/16/2022 Mood, still struggling some with depressed mood but does feel that her Paxil is working better thanthe Lexapro. Still some fatigue. Feels her lack of motivation is related to feeling down about her obesity. Interested in options to help with her overeating/appetite and help with weight loss. Arthritis, multiple joints, use of cane, needing rx for handicap refilled. Fatigue symptoms, has iron deficiency but normal hemoglobin, isn't taking an oral supplement yet. At follow up visit on 06/22/2022 Iron deficiency, worsening control, taking over the counter iron supplement once a day called Slo Fe 45 mg a day. No blood in stool Having some shortness of breath and fatigue symptoms that are chronic. Has been seeing CardiologistDr. Hickey. No chest pressure or pain. No fevers or chills. Long standing symptoms Arthritis multiple joints. Admits that she hasn't been exercising. At last OFFICE VISIT on 09/21/22 Iron deficiency, improving control, taking over the counter iron supplement once a day called Slo Fe 45 mg a day. No blood in stool. Also knows needs to improve her diet of iron rich foods. Still fatigue symptoms and feels that she has significant bags under her eyes that bother her due to appearance. Having some shortness of breath and fatigue symptoms that are chronic. Has been seeing CardiologistDr. Hickey. No chest pressure or pain. No fevers or chills. Long standing symptoms Arthritis multiple joints. Admits that she hasn't been exercising. knows also need for weight loss but not always eating how she should. Trying to drink a protein shake daily. Mood, does feel that the Paxil medication is helping her as well as prn use of Ativan for panic, noSI or HI. Enjoys hanging out with her male friend and going out to eat with friends. Currently Mood, stable, she is still going out to eat as able with her male friend and other friends. Taking medication as prescribed Overeating, binge eating, obesity, doesn't feel that the topamax has been helpful. Wondering if should stop the medication + fatigue, continues to have symptoms. Has recently seen Dr. Hickey Pocket Flap Creasing Machine Operator and had repeat ECHOand other cardiac testing without any concerning findings. Having some shortness of breath and fatigue symptoms that are chronic. Has been seeing CardiologistDr. Hickey. No chest pressure or pain. No fevers or chills. Long standing symptoms but does feel it is worsening. ECHO showed normal Ejection fracture and no heart failure MIRACLE, admits that she recently changed from slo fe twice a day with meals to a liquid iron. Doesn't feel it is as effective. Labs are worsening with iron and tranferrin saturation, normal hemoglobin- no anemia. PAST MEDICAL HISTORY Diagnosis Date A-fib (HCC) Allergic rhinitis, cause unspecified Arrhythmia Arthritis Greater trochanteric bursitis of left hip Melanoma of skin, site unspecified Malignant melanoma Osteoarthritis of left hip Other and unspecified hyperlipidemia Situational mixed anxiety and depressive disorder Sleep apnea Stroke (HCC) Unspecified essential hypertension Unspecified gastritis and gastroduodenitis PAST SURGICAL HISTORY Procedure Laterality Date ABDOMINAL SURGERY HX APPENDECTOMY APPENDECTOMY HX ARTHRP ACETBLR/PROX FEM PROSTC AGRFT/ALGRFT 12/09/2003 right hip, redone, 07/2004 ARTHRP ACETBLR/PROX FEM PROSTC AGRFT/ALGRFT Left 07/2016 ARTHRP KNE CONDYLE&PLATU MEDIAL&LAT COMPARTMENTS 11/15/2009 Knee replacement, total -Left - [facility] ARTHRP KNE CONDYLE&PLATU MEDIAL&LAT COMPARTMENTS 12/30/2009 Right knee replaced COLONOSCOPY FLX DX W/COLLJ SPEC WHEN PFRMD 06/29/2017 Colonoscopy EGD 10/17/2020 EGD W/O [facility] SPEC VARICIES INJ 01/08/2022 ESOPHAGOGASTRODUODENOSCOPY TRANSORAL DIAGNOSTIC 11/29/2000 EGD ESOPHAGOGASTRODUODENOSCOPY TRANSORAL DIAGNOSTIC 06/29/2017 EGD JOINT REPLACEMENT HX LAPS SURG CHOLECYSTECTOMY W/CHOLANGIOGRAPHY PACEMAKER IMPLANT 01/2011 SKIN BIOPSY HX TONSILLECTOMY HX TONSILLECTOMY PRIMARY/SECONDARY <AGE 12 Tonsillectomy TOTAL ABDOMINAL HYSTERECT W/WO RMVL TUBE OVARY Hysterectomy, GAL VAGINAL HYSTERECTOMY Current Outpatient Medications Medication Sig rosuvastatin (CRESTOR) 10 mg tablet Take 1 tablet by mouth daily at bedtime. LORazepam (ATIVAN) 0.5 mg Take 1 tablet by mouth twice daily as needed (anxiety attack). PARoxetine (PAXIL) 20 mg tablet Take 1 tablet by mouth once daily. In the evening hydroCHLOROthiazide (HYDRODIURIL, ESIDRIX) 12.5 mg capsule Take 2 capsules by mouth once daily. sucralfate (CARAFATE) 100 mg/mL suspension Take 10 mL by mouth four times daily. Cholecalciferol, Vitamin D3, 50 mcg (2,000 unit) cap Take 1 capsule by mouth once daily. aspirin, enteric coated (ASPIRIN, ENTERIC COATED) 81 mg EC tablet Take 81 mg by mouth once daily. PACERONE 200 mg tablet Take 200 mg by mouth once daily. ubidecarenone (COQ-10 ORAL) Take by mouth. diltiazem CD (CARDIZEM CD) 240 mg 24 hr capsule Take 1 capsule by mouth once daily. losartan (COZAAR) 100 mg tablet Take 1 tablet by mouth once daily. Current Facility-Administered Medications Medication Dose Route Frequency perflutren lipid microspheres 1.3 mL in NaCl (PF) 0.9% 10 mL injection (DEFINITY) INTRAVENOUS DIRECTED PRN sodium chloride 0.9 % (flush) 10 mL (BD POSIFLUSH) 10 mL INTRAVENOUS DIRECTED PRN ALLERGIES Allergen Reactions Ciprofloxacin Rash Demerol [Meperidine* Vomiting Opioids - Morphine * Intolerance nausea, dizzy, sees things Opioids-Meperidine * nausea/vomiting Penicillin G hives Pravachol [Pravasta* Other: See Comments Leg cramps Sulfa (Sulfonamide * hives Vicodin [Hydrocodon* Intolerance dizzy,nausea,vomiting,headache Zithromax [Azithrom* Intolerance Social History Tobacco Use Smoking status: Never Smokeless tobacco: Never Vaping Use Vaping Use: Never used Substance Use Topics Alcohol use: Not Currently Comment: rarely Drug use: No ROS: See HPI PE: BP 130/62 Pulse 63 Resp 18 Ht 5' 5 (1.65m) Wt 229 lb (103.9kg) SpO2 96% BMI 38.11 kg/(m^2). Gen: A&OX3, NAD, non-toxic appearing HEENT: PERRLA, wearing glasses, EOMs intact b/l, nares without drainage, pharynx without erythema, exudate, lesions, or drainage. Uvula midline. MMM, EAC and normal TM b/l Neck: No LAD, no thyromegaly, no meningismus. CV: RRR, no murmur, normal s1s2 Lungs: CTA b/l, no wheezing No edema, normal pulses Skin: No rashes, lesions, or wounds on exposed skin. Arthritis multiple joints ASSESSMENT/PLAN: 1. WELCH (dyspnea on exertion) - ICD9: 786.09, ICD10: R06.09 (primary diagnosis) Unsure cause, CXR and PFTs as ordered, if normal, then consider that diltiazem may be contributing to the symptoms- needs to consider med change per cardiology - XR CHEST 2V FRONTAL/LAT - SPIROMETRY - BASELINE AND POST DILATOR 2. Fatigue, unspecified type - ICD9: 780.79, ICD10: R53.83 - recheck labs as ordered, STOP the Topamax since ineffective. then consider that diltiazem may be contributing to the symptoms- needs to consider med change per - TSH BLD - T4 FREE/FREE THYROX 3. Obesity, Class II, BMI 35-39.9 - ICD9: 278.00, ICD10: E66.9 Stable - PSMF and - Eat well program STOP Topamax, ineffective - TSH BLD - T4 FREE/FREE THYROX 4. IFG (impaired fasting glucose) - ICD9: 790.21, ICD10: R73.01 Recheck labs as ordered - TSH BLD - T4 FREE/FREE THYROX 5. Vitamin B12 deficiency - ICD9: 266.2, ICD10: E53.8 Continue supplement, recheck labs - VITAMIN B12 BLOOD 6. Primary hypertension - ICD9: 401.9, ICD10: I10 - Controlled - Continue current medications - Recommend home blood pressure monitoring, to bring results to next visit - Encouraged sodium restriction, DASH or Mediterranean diet - Recommend regular aerobic exercise - COMP METABOLIC PANEL - CBC 7. Disorder of carotid artery (HCC) - ICD9: 447.9, ICD10: I77.9 See above Michael Puga DO Return if no improvement. Follow up with Michael Puga DO. To ER if develops chest pain, shortness of breath Discussed risks, benefits, alternatives, and potential side effects of medications. Patient/Guardian expressed understanding and agreed with the plan. See patient instructions. Michael Puga DO [address] [place] [address] documented in this encounter[facility]05[facility]31-[facility]23 Miscellaneous Notes* Telephone Encounter - Asia Rosales APRN.HATCHERY MAN - 09/30/2022 5:39 PM EDT The following approved medication requests have been transmitted electronically. Requested Prescriptions Signed Prescriptions Disp Refills rosuvastatin (CRESTOR) 10 mg tablet 90 tablet 3 Sig: Take 1 tablet by mouth daily at bedtime. Authorizing Provider: ASIA ROSALES LORazepam (ATIVAN) 0.5 mg 30 tablet 2 Sig: Take 1 tablet by mouth twice daily as needed (anxiety attack). Authorizing Provider: ASIA ROSALES APRN.CNP PDMP website checked and validated. All prescriptions have been APPROPRIATELY filled. No suspiciousactivity was identified. 09/30/2022 by Asia Rosales CNP. * Telephone Encounter - Yvonne Nix Pss - 09/29/2022 9:37 AM EDT Pharmacy verified in Epic Patient has been identified by name and date of : Yes Patient aware RX will be sent to pharmacy. No need to notify patient. Patient phones for refill(s): Requested Prescriptions Pending Prescriptions Disp Refills rosuvastatin (CRESTOR) 10 mg tablet 90 tablet 3 Sig: Take 1 tablet by mouth daily at bedtime. LORazepam (ATIVAN) 0.5 mg 30 tablet 2 Sig: Take 1 tablet by mouth twice daily as needed (anxiety attack). Date of last office visit : 09/21/2022 Date of next office visit : 12/22/2022 Last 2 Encounter Wt Readings: Date: Wt: 09/21/2022 101.6 kg (224 lb) 06/22/2022 102.5 kg (226 lb) Not applicable Please advise. Yvonne Nix Pss documented in this encounterMi[facility]02-27-2023 Miscellaneous Notes* Telephone Encounter - Julianna Valladares Pss - 06/29/2022 3:26 PM EST Patient has been identified by name and date of : Yes Requested Prescriptions Pending Prescriptions Disp Refills PARoxetine (PAXIL) 20 mg tablet 90 tablet 1 Sig: Take 1 tablet by mouth once daily. In the evening HALEY-06/22/22 Labs- 06/04/22 NOV-09/21/22 med filled 12/16/21 RX INSTRUCTIONS: Patient aware RX will be sent to pharmacy. No need to notify patient. Julianna Valladares Pss documented in this encounterMiami [facility]02-20-2023 Instructions* Patient Instructions* Michael Puga DO - 06/22/2022 12:14 PM EST STOP Metformin medication Increase fluid intake to at least 60 oz of water a day Increase protein intake in your diet- protein drink daily Increase iron supplement to twice a day with a meal documented in this encounterMiami [facility]02-20-2023 History of Present illness Narrative* Michael Puga DO - 06/22/2022 12:05 PM EST CC: Michael Meier is a 82 year old female who presents to the office for follow up HPI: Seen in office on 06/13/21, at that time: HTN, recently elevated, no CP or dyspnea or dizziness/LH, taking her medications as prescribed- losartan AM and diltiazem PM. CAD, PAD, taking medications as prescribed. Mood, overall feels she is coping okay with use of the Lexapro, rare use of Ativan. Getting some help with her disabled brother since he was just recently moved into a [place]. + fatigue, admits that she doesn't want to leave her home much recently, but denies that her depression is out of control. Did lose one of her best friends from covid 19 complication in Apr around her birthday time Just had pacemaker replaced 1 week ago, after previous was in place 12 years, still taking amiodarone, still going into Atrial fib off and on BLOOD PRESSURE has been elevated recently, no other symptpoms At follow up on 12/16/21 HTN, seems to be stable, denies any CP or dyspnea or dizziness/LH or edema. Has had episodes of hyponatremia. 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 Feels this doesn't make her feel well. Fatigue symptoms, feels she is more isolated for the last 2 years since covid 19 pandemic and limitations with getting out with friends. Also brother Serg [place] now and she is home alone. Has been on Lexapro for years- thinks this medication isn't working well to help her depressed mood. No SI or HI. Thinks medication needs changes. Taking the ativan with benefit for anxiety attack/panic feeling She was tapered off the lexapro and started on Paxil At last OFFICE VISIT on 02/16/2022 Mood, still struggling some with depressed mood but does feel that her Paxil is working better thanthe Lexapro. Still some fatigue. Feels her lack of motivation is related to feeling down about her obesity. Interested in options to help with her overeating/appetite and help with weight loss. Arthritis, multiple joints, use of cane, needing rx for handicap refilled. Fatigue symptoms, has iron deficiency but normal hemoglobin, isn't taking an oral supplement yet. Currently Iron deficiency, worsening control, taking over the counter iron supplement once a day called Slo Fe 45 mg a day. No blood in stool Having some shortness of breath and fatigue symptoms that are chronic. Has been seeing CardiologistDr. Hickey. No chest pressure or pain. No fevers or chills. Long standing symptoms Arthritis multiple joints. Admits that she hasn't been exercising. PAST MEDICAL HISTORY Diagnosis Date A-fib (HCC) Allergic rhinitis, cause unspecified Arrhythmia Arthritis Greater trochanteric bursitis of left hip Melanoma of skin, site unspecified Malignant melanoma Osteoarthritis of left hip Other and unspecified hyperlipidemia Situational mixed anxiety and depressive disorder Sleep apnea Stroke (HCC) Unspecified essential hypertension Unspecified gastritis and gastroduodenitis PAST SURGICAL HISTORY Procedure Laterality Date ABDOMINAL SURGERY HX APPENDECTOMY APPENDECTOMY HX ARTHRP ACETBLR/PROX FEM PROSTC AGRFT/ALGRFT 12/09/2003 right hip, redone, 07/2004 ARTHRP ACETBLR/PROX FEM PROSTC AGRFT/ALGRFT Left 07/2016 ARTHRP KNE CONDYLE&PLATU MEDIAL&LAT COMPARTMENTS 11/15/2009 Knee replacement, total -Left - [facility] ARTHRP KNE CONDYLE&PLATU MEDIAL&LAT COMPARTMENTS 12/30/2009 Right knee replaced COLONOSCOPY FLX DX W/COLLJ SPEC WHEN PFRMD 06/29/2017 Colonoscopy EGD 10/17/2020 EGD W/O [facility] SPEC VARICIES INJ 01/08/2022 ESOPHAGOGASTRODUODENOSCOPY TRANSORAL DIAGNOSTIC 11/29/2000 EGD ESOPHAGOGASTRODUODENOSCOPY TRANSORAL DIAGNOSTIC 06/29/2017 EGD JOINT REPLACEMENT HX LAPS SURG CHOLECYSTECTOMY W/CHOLANGIOGRAPHY PACEMAKER IMPLANT 01/2011 SKIN BIOPSY HX TONSILLECTOMY HX TONSILLECTOMY PRIMARY/SECONDARY <AGE 13 Tonsillectomy TOTAL ABDOMINAL HYSTERECT W/WO RMVL TUBE OVARY Hysterectomy, GAL VAGINAL HYSTERECTOMY Current Outpatient Medications Medication Sig hydroCHLOROthiazide (HYDRODIURIL, ESIDRIX) 12.5 mg capsule Take 2 capsules by mouth once daily. mirtazapine (REMERON) 15 mg tablet Take 1 tablet by mouth daily at bedtime. For insomnia metFORMIN (GLUCOPHAGE) 500 mg tablet Take 1 tablet by mouth daily with breakfast. PARoxetine (PAXIL) 20 mg tablet Take 1 tablet by mouth once daily. In the evening rosuvastatin (CRESTOR) 10 mg tablet Take 1 tablet by mouth daily at bedtime. sucralfate (CARAFATE) 100 mg/mL suspension Take 10 mL by mouth four times daily. LORazepam (ATIVAN) 0.5 mg Take 1 tablet by mouth twice daily as needed (anxiety attack). Cholecalciferol, Vitamin D3, 50 mcg (2,000 unit) cap Take 1 capsule by mouth once daily. aspirin, enteric coated (ASPIRIN, ENTERIC COATED) 81 mg EC tablet Take 81 mg by mouth once daily. PACERONE 200 mg tablet Take 200 mg by mouth once daily. ubidecarenone (COQ-10 ORAL) Take by mouth. diltiazem CD (CARDIZEM CD) 240 mg 24 hr capsule Take 1 capsule by mouth once daily. losartan (COZAAR) 100 mg tablet Take 1 tablet by mouth once daily. Current Facility-Administered Medications Medication Dose Route Frequency perflutren lipid microspheres 1.3 mL in NaCl (PF) 0.9% 10 mL injection (DEFINITY) INTRAVENOUS DIRECTED PRN sodium chloride 0.9 % (flush) 10 mL (BD POSIFLUSH) 10 mL INTRAVENOUS DIRECTED PRN ALLERGIES Allergen Reactions Ciprofloxacin Rash Demerol [Meperidine* Vomiting Opioids - Morphine * Intolerance nausea, dizzy, sees things Opioids-Meperidine * nausea/vomiting Penicillin G hives Pravachol [Pravasta* Other: See Comments Leg cramps Sulfa (Sulfonamide * hives Vicodin [Hydrocodon* Intolerance dizzy,nausea,vomiting,headache Zithromax [Azithrom* Intolerance Social History Tobacco Use Smoking status: Never Smokeless tobacco: Never Vaping Use Vaping Use: Never used Substance Use Topics Alcohol use: Not Currently Comment: rarely Drug use: No ROS: See HPI PE: BP 128/68 Pulse 64 Temp (Src) 98.2 (Left Tympanic) Resp 16 Wt 226 lb (102.5kg) Gen: A&OX3, NAD, non-toxic appearing HEENT: PERRLA, wearing glasses, EOMs intact b/l, nares without drainage, pharynx without erythema, exudate, lesions, or drainage. Uvula midline. MMM, EAC and normal TM b/l Neck: No LAD, no thyromegaly, no meningismus. CV: RRR, no murmur, normal s1s2 Lungs: CTA b/l, no wheezing No edema, normal pulses Skin: No rashes, lesions, or wounds on exposed skin. Arthritis multiple joints ASSESSMENT/PLAN: 1. Iron deficiency - ICD9: 280.9, ICD10: E61.1 (primary diagnosis) Increase iron supplement to twice a day, recheck labs in 2-3 months. - IRON + TIBC 2. Fatigue, unspecified type - ICD9: 780.79, ICD10: R53.83 Increase iron supplement to twice a day, recheck labs in 2-3 months. Stable, chronic - COMP METABOLIC PANEL 3. SOB (shortness of breath) on exertion - ICD9: 786.05, ICD10: R06.02 See above, needs to increase iron intake. chronic 4. IFG (impaired fasting glucose) - ICD9: 790.21, ICD10: R73.01 - recheck labs - HGB A1C 5. Vitamin D deficiency - ICD9: 268.9, ICD10: E55.9 - recheck labs - VITAMIN D 25 HYDROXY 6. Vitamin B12 deficiency - ICD9: 266.2, ICD10: E53.8 Recheck labs - VITAMIN B12 BLOOD 7. Hyperlipidemia, unspecified hyperlipidemia type - ICD9: 272.4, ICD10: E78.5 - to be determined upon return of lab results - Encouraged following a low fat, low cholesterol diet. - Discussed the benefits of regular aerobic exercise and weight loss. - LIPID PANEL BASIC 8. Primary hypertension - ICD9: 401.9, ICD10: I10 - good control - Continue current medication(s) - Encouraged dietary sodium restriction/DASH diet - Recommended regular aerobic exercise. - Recommend home blood pressure monitoring, to bring results in on next visit - Goal of BP <130/80 9. Obesity, Class II, BMI 35-39.9 - ICD9: 278.00, ICD10: E66.9 Stable - Behavioral intervention and - Eat well program 10. Arthritis, multiple joint involvement - ICD9: 716.99, ICD10: M12.9 - needs to exercise more regularly Michael Puga DO Return if no improvement. Follow up with Michael Puga DO. To ER if develops chest pain, shortness of breath Discussed risks, benefits, alternatives, and potential side effects of medications. Patient/Guardian expressed understanding and agreed with the plan. See patient instructions. Michael Puga DO [address] [place] [address] documented in this encounterMi[facility]02-08-2023 Miscellaneous Notes* Telephone Encounter - Carie Lora RN - 06/10/2022 12:43 PM EST Spoke with patient. Given message from provider's office. Patient verbalizes understanding. Carie Lora RN * Telephone Encounter - Jacque Machuca - 06/10/2022 11:49 AM EST Left message for patient to return call. Echo results faxed to [facility] office 06/10/2022 ALEX Machuca * Telephone Encounter - Key Portillo APRN.HATCHERY MAN - 06/10/2022 10:56 AM EST Please call patient and let her know that ECHO shows no acute concerns. I have no ECHO in our system to compare to. Please fax this result to Dr. Hickey's office for review. Thank you, Key Potrillo APRN.CNP documented in this encounterMiami [facility] Hospital02-06-2023 Miscellaneous Notes* Telephone Encounter - Jacque Machuca - 06/08/2022 10:17 AM EST Pt informed, verbalized understanding. Jacque Machuca * Telephone Encounter - Key Portillo APRN.CNP - 06/08/2022 10:13 AM EST Yes, patient needs to start BP medication. I think the elevated BP may be the cause of her symptoms. Let us know if remains elevated after a few days with new BP medication. Thank you, Key Portillo APRN.CNP * Telephone Encounter - Jacque Machuca - 06/08/2022 10:10 AM EST Pt informed, verbalized understanding. Pt reports BP is still elevated. This morning BP was 183/90 & pulse 72. Pt hasn't started BP med but will take this evening. Jacque Machuca * Telephone Encounter - Key Portillo APRN.CNP - 06/08/2022 10:02 AM EST Please call patient and let her know that lab work looks great! No acute concerns. No anemia, no elevation in BNP (heart failure marker). Continue with ECHO. Have BP at home still running high? Thank you, Key Portillo APRN.CNP documented in this encounterMi[facility]02-06-2023 Miscellaneous Notes* Telephone Encounter - Key Portillo APRN.CNP - 06/08/2022 7:48 AM EST I agree with 25 mg tablets. Thank you, Key Portillo APRN.HATCHERY MAN * Telephone Encounter - Nadine Colon LPN - 06/05/2022 3:09 PM EST Stephy from [facility] pharmacy calling asking about HCTZ 12.5 mg 2 daily only was sent for 30,asking to have rx increased to 60 for a month supply. Read office visit notes and said HCTZ 25 mg daily, gave verbal to change rx to 60 for month supply on the rx. * Telephone Encounter - Loli Adamson RN - 06/05/2022 10:44 AM EST [facility] reports they received the hctz 12.5 mg Rx take 2 caps daily, disp # 30. Asking doing you want them to give patient the 25 mg caps and disp # 30 or give patient the 12.5 mg caps and disp # 60? Please phone pharmacy with reply. documented in this encounterMiami [facility]02-02-2023 Instructions* Patient Instructions* Key Portillo APRN.CNP - 06/04/2022 3:07 PM EST Mounjaro --- weekly Trulcity -- Weekly Victoza -- daily Saxenda -- Daily Start HCTZ 12.5 mg daily for BP and swelling in legs. Follow-up in 1 month to reassess BP. Will assess GLP-1 injection at this time as well. Blood work today. EKG today. Schedule ECHO documented in this encounterMiami [facility]02-02-2023 History of Present illness Narrative* Key Portillo APRN.CNP - 06/04/2022 2:40 PM EST Chief Complaint Patient presents with: Fatigue: Extreme fatigue , sob and sleeping a lot. For a couple months HPI Michael Meier is a 82 year old female who presents here today for Above Complaints. Michael is an established patient of Dr. Edd Do. She is a new patient to me today. Concerns today... Per triage: Reason for Disposition [1] Fatigue (i.e., tires easily, decreased energy) AND [2] persists > 1 week Answer Assessment - Initial Assessment Questions 1. DESCRIPTION: Still feeling tired and with no energy after sleeping 8-10 hours, and then falling asleep again forseveral hours again after waking up. 2. SEVERITY: Denies any issues with standing or walking. 3. ONSET: No weakness. Fatigue since May, but sleeping longer and then falling asleep again x one week. 4. CAUSE: Admit to poor appetite, and stopped drinking her PRO drinks recently. Also admits to not eating as much as she used to, in attempts to try and lose weight, which includes just sugar free hot cocoa or coffee for breakfast instead of usual peanut butter on toast. Will often fall asleep right after breakfast and AM meds including Metformin, but not does not have a glucometer to check her BS. Did have COVID 2 months ago, with fatigue since then too. Reports pacemaker and that HR and BP WNL for her. 5. MEDICINES: Remeron for sleep since 04-28-22. Paxil since 12-22-21 for depression after switch from Lexapro. 6. OTHER SYMPTOMS: Denies other Sx including no shortness of breath, vomiting , diarrhea, bleeding, chest pain or any other pain. 7. : N/A Currently today in office .... SOB with exertion --- even walking a few feet x 2-[address] Hickey --- last appointment was stable and told to follow-up in 1 year which will be summer. Hx of A fib. Has pacemaker. Swelling/edema in bilateral legs. Pt just noticed today at appt. Extreme fatigue - which is unlike her. Sleeping so much -- changed sleeping medicine twice and no improvement. Will sleep 8-10 hours a night and nap for a few hours. Has no motivation to leave house and do anything. Pt concerned about weight gain... interested in injectable medication that is advertised for DM andweight loss. Asking for new glucometer due to hers broke -- has not checked sugars in weeks. HTN --- BP elevated in office. She states compliant with current blood pressure medication(s): losartan 100 mg daily. She does check BP at home. Average home readings: 120/60s per pt from smart watch. Pt does have BP cuff machine at home that she said she will start using instead now that she can see this is not accurate. BP reading in office taken x3 160-170/60-80s. She denies chest pain, palpitations, dizziness, headaches, or vision changes. Last 14 Encounter BP Readings: Date: BP: 06/04/2022 164/80 04/21/2022 124/74 02/16/2022 146/70 01/08/2022 163/72 12/18/2021 138/70 12/16/2021 136/70 10/20/2021 134/80 06/13/2021 164/76 03/13/2021 140/68 10/29/2020 130/84 09/23/2020 186/84 09/23/2020 138/74 09/20/2020 124/60 07/12/2019 136/70 Past medical history, appointments, medications, allergies reviewed. Previous Medical History PAST MEDICAL HISTORY Diagnosis Date A-fib (HCC) Allergic rhinitis, cause unspecified Arrhythmia Arthritis Greater trochanteric bursitis of left hip Melanoma of skin, site unspecified Malignant melanoma Osteoarthritis of left hip Other and unspecified hyperlipidemia Situational mixed anxiety and depressive disorder Sleep apnea Stroke (HCC) Unspecified essential hypertension Unspecified gastritis and gastroduodenitis Previous Surgical History PAST SURGICAL HISTORY Procedure Laterality Date ABDOMINAL SURGERY HX APPENDECTOMY APPENDECTOMY HX ARTHRP ACETBLR/PROX FEM PROSTC AGRFT/ALGRFT 12/09/2003 right hip, redone, 07/2004 ARTHRP ACETBLR/PROX FEM PROSTC AGRFT/ALGRFT Left 07/2016 ARTHRP KNE CONDYLE&PLATU MEDIAL&LAT COMPARTMENTS 11/15/2009 Knee replacement, total -Left - [facility] ARTHRP KNE CONDYLE&PLATU MEDIAL&LAT COMPARTMENTS 12/30/2009 Right knee replaced COLONOSCOPY FLX DX W/COLLJ SPEC WHEN PFRMD 06/29/2017 Colonoscopy EGD 10/17/2020 EGD W/O [facility] SPEC VARICIES INJ 01/08/2022 ESOPHAGOGASTRODUODENOSCOPY TRANSORAL DIAGNOSTIC 11/29/2000 EGD ESOPHAGOGASTRODUODENOSCOPY TRANSORAL DIAGNOSTIC 06/29/2017 EGD JOINT REPLACEMENT HX LAPS SURG CHOLECYSTECTOMY W/CHOLANGIOGRAPHY PACEMAKER IMPLANT 01/2011 SKIN BIOPSY HX TONSILLECTOMY HX TONSILLECTOMY PRIMARY/SECONDARY <AGE 12 Tonsillectomy TOTAL ABDOMINAL HYSTERECT W/WO RMVL TUBE OVARY Hysterectomy, GAL VAGINAL HYSTERECTOMY Family History FAMILY HISTORY Problem Relation Age of Onset Coronary Artery Disease Mother other (cardiac arrest) Mother Coronary Artery Disease Father Diabetes Father other (congestive heart failure) Father Patient Allergies ALLERGIES Allergen Reactions Ciprofloxacin Rash Demerol [Meperidine* Vomiting Opioids - Morphine * Intolerance nausea, dizzy, sees things Opioids-Meperidine * nausea/vomiting Penicillin G hives Pravachol [Pravasta* Other: See Comments Leg cramps Sulfa (Sulfonamide * hives Vicodin [Hydrocodon* Intolerance dizzy,nausea,vomiting,headache Zithromax [Azithrom* Intolerance Current Medications Current Outpatient Medications on File Prior to Visit Medication Sig mirtazapine (REMERON) 15 mg tablet Take 1 tablet by mouth daily at bedtime. For insomnia zolpidem (AMBIEN) 5 mg tablet Take 1 tablet by mouth at bedtime as needed for sedation for up to 30days. metFORMIN (GLUCOPHAGE) 500 mg tablet Take 1 tablet by mouth daily with breakfast. PARoxetine (PAXIL) 20 mg tablet Take 1 tablet by mouth once daily. In the evening rosuvastatin (CRESTOR) 10 mg tablet Take 1 tablet by mouth daily at bedtime. sucralfate (CARAFATE) 100 mg/mL suspension Take 10 mL by mouth four times daily. LORazepam (ATIVAN) 0.5 mg Take 1 tablet by mouth twice daily as needed (anxiety attack). Cholecalciferol, Vitamin D3, 50 mcg (2,000 unit) cap Take 1 capsule by mouth once daily. aspirin, enteric coated (ASPIRIN, ENTERIC COATED) 81 mg EC tablet Take 81 mg by mouth once daily. PACERONE 200 mg tablet Take 200 mg by mouth once daily. ubidecarenone (COQ-10 ORAL) Take by mouth. diltiazem CD (CARDIZEM CD) 240 mg 24 hr capsule Take 1 capsule by mouth once daily. losartan (COZAAR) 100 mg tablet Take 1 tablet by mouth once daily. No current facility-administered medications on file prior to visit. Social History Social History Tobacco Use Smoking status: Never Smokeless tobacco: Never Vaping Use Vaping Use: Never used Substance Use Topics Alcohol use: Not Currently Comment: rarely Drug use: No REVIEW OF SYSTEMS: as above Reviewed relevant PMHx, PSHx, Social Hx, current medications and allergies. Review of Symptoms REVIEW OF SYSTEMS See HPI. All other systems are negative. EXAM: BP 164/80 Pulse 63 Resp 16 Wt 106.7 kg (235 lb 3.2 oz) SpO2 93% BMI 39.14 kg/m General Appearance: Well appearing, alert, in no acute distress, well-hydrated, well nourished.. Skin: Skin color, texture, turgor normal, no suspicious rashes or lesions. Head: Normocephalic, no masses, lesions, tenderness or abnormalities. Neck: Supple, no adenopathy; thyroid symmetric, normal size, no bruits. Back:no pain to palpation of vertebrae, good flexion and extension, good range of motion, no muscletenderness, reflexes are 2+ and symmetric, motor and sensory appear to be normal, negative SLR test, no evidence of scoliosis Lungs: Lungs clear to auscultation. No wheezing, rhonchi, rales. Heart: RRR without murmur, gallop, or rubs. No ectopy. Abdomen: Normal abdominal exam, Abdomen soft, non-tender. Bowel sounds normal. No masses, organomegaly. Neurologic: Gait normal. Reflexes normal and symmetric. Sensation grossly intact. Extremities: 2+ pitting edema in bilateral lower extremities. Health Maintenance List DTAP,TDAP,TD(2 - Tdap) due on 08/31/2013 SHINGRIX VACCINE(2 of 3) due on 01/16/2015 FECAL OCCULT BLOOD due on 05/12/2017 COVID-19 VACCINE(3 - Booster for Pfizer series) due on 09/27/2020 ADVANCE DIRECTIVE DISCUSSION Never done DIABETES SCREEN due on 02/13/2025 BONE DENSITY Completed INFLUENZA Completed PNEUMOCOCCAL: 65+ Completed ASSESSMENT/PLAN: 1. Fatigue, unspecified type - ICD9: 780.79, ICD10: R53.83 (primary diagnosis) Below blood work. Unsure if fatigue is related to hx of iron deficiency anemia, cardiac problems such as CHF, elevated BP, etc. - COMP METABOLIC PANEL - CBC + DIFF - VITAMIN D 25 HYDROXY - VITAMIN B12 BLOOD - IRON + TIBC - FERRITIN BLD - TSH BLD - HYDROCHLOROTHIAZIDE 12.5 MG CAPSULE - ECG COMPLETE 2. SOB (shortness of breath) on exertion - ICD9: 786.05, ICD10: R06.02 BNP, EKG in office was NRS rate of 62, ECHO. May consider stress test due to exertional nature -- due to age and complexity of visit, we decidedto wait to see blood work and ECHO results first. Likely needs to see Dr. Hickey sooner than scheduled appt. - NT PRO BNP - ECG COMPLETE - ECHO - PERFLUTREN LIPID MICROSPHERES 1.1 MG/ML INJECTION IN NS 10 ML - SODIUM CHLORIDE 0.9 % (FLUSH) INJECTION SYRINGE - HYDROCHLOROTHIAZIDE 12.5 MG CAPSULE - ECG COMPLETE 3. Hyperlipidemia, unspecified hyperlipidemia type - ICD9: 272.4, ICD10: E78.5 - to be determined upon return of lab results - Encouraged following a low fat, low cholesterol diet. - Discussed the benefits of regular aerobic exercise and weight loss. - Encouraged following a low carbohydrate, healthy oil intake diet. 4. Obesity, Class II, BMI 35-39.9 - ICD9: 278.00, ICD10: E66.9 Gave patient options of injectable GLP-1 medications to check with insurance about. Weight management is not my main concern at this visit. 5. IFG (impaired fasting glucose) - ICD9: 790.21, ICD10: R73.01 GLP-1 injectable may be considered for weight loss and glucose control. New glucometer ordered. - HGB A1C - HOME BLOOD GLUCOSE MONITOR 6. Iron deficiency anemia, unspecified iron deficiency anemia type - ICD9: 280.9, ICD10: D50.9 - IRON + TIBC - FERRITIN BLD 7. Vitamin D deficiency - ICD9: 268.9, ICD10: E55.9 - VITAMIN D 25 HYDROXY 8. Bilateral leg edema - ICD9: 782.3, ICD10: R60.0 Start HCTZ daily. See below. - HYDROCHLOROTHIAZIDE 12.5 MG CAPSULE - ECG COMPLETE 9. Primary hypertension - ICD9: 401.9, ICD10: I10 - poor control - Continue current medication(s) - Add HCTZ 25 mg daily. Hoping HCTZ will improve edema and HTN. - Encouraged dietary sodium restriction/DASH diet - Recommended regular aerobic exercise. - Recommend home blood pressure monitoring, to bring results in on next visit - Discussed need and benefit for weight loss. - Follow up in 1 month for BP recheck. - Goal of BP <130/80 - Recommend home or pharmacy blood pressure monitoring - Recommended no refined sugar, low refined starch, healthy oil intake (olive oil), healthy protein(fish) along the lines of the Mediterranean diet. RTO in 2-4 weeks, sooner if needed. Scheduled on 06/23 already. Prescription instructions reviewed with patient as applicable. Potential red flag symptoms discussed with the patient. Reviewed appropriate action plan to take if red flag symptoms occur. Patient agreeable to treatment plan. Key Abrams APRN.[employer] [address] [place] [address] documented in this encounterMi[facility]01-31-2023 History of Present illness Narrative* Anita Box MA - 06/02/2022 1:51 PM EST POPULATION HEALTH NAVIGATION OUTREACH Action/I H@[facility] Call in. Received warm transfer from NurseAyden Fontana RN Patient needs: Apt with PCP/Team with in 3 days Health Maintenance and Care Gaps reviewed: N/a - AD on file all other up to date Scheduled appointment:Yes with PCP team Encounter Closed. Patient Identified by Name and : YES, via phone Outreach Outcome/Action Spoke to patient / parent / legal guardian: Patient scheduled Did you use a PCP flex slot to schedule this appointment? No Reason for Outreach [facility] Payer: Payor: MEDICARE / Plan: MEDICARE A AND B / Product Type: Medicare / Care Gap Reviewed:: N/A Reminder: Reminder note to check Health Maintenance for items below Health Maintenance items due: DTAP,TDAP,TD(2 - Tdap) due on 08/31/2013 SHINGRIX VACCINE(2 of 3) due on 01/16/2015 FECAL OCCULT BLOOD due on 05/12/2017 COVID-19 VACCINE(3 - Booster for Pfizer series) due on 09/27/2020 ADVANCE DIRECTIVE DISCUSSION Never done [place] Signature: Anita Box MA June 02, 2022 1:53 PM documented in this encounterMiami [facility] Hospital01-31-2023 Miscellaneous Notes* Telephone Encounter - Magaly Fontana RN - 06/02/2022 12:54 PM EST HEALTH[facility] AT HOME OUTREACH Provider Action/FYI: Patient calling [facility] at Home as patient now sleeping, however, still has no energy and still tired despite sleeping longer hours. Reports she is getting 8-10 hours sleep at night but then napping an additional 4- 5 hours after waking up x 1 week. (I.e.Wakes up at 8am but then sleeps again until 12pm to 1pm without even finishing her coffee). Recommendation to SEE PCP Within 3 days. Warm transfer to [facility] in [place]. Will route to PCP with patient's request for glucometer from [facility], and possible need to speak with regional company hazmat tanker driver/technology architect. Hello, you've reached [facility], my name is Magaly Fontana, GLYNN, I'm a registered nurse, and we are on a recorded line. Patient identified by name and date of Spoke with patient Verify that the patient is a [facility] patient: Patient reporting yes and speaking to a [facility], however, later determined not a H@ H patient. Still triaged for Sx with transfer to [place] for PCP follow up within 3 days. Are you having any symptoms today? Yes - Go to [facility] Protocol Symptoms present: No energy or desire to do anything. Loss of appetite since Metformin 02-16-22 Currently on only Remeron since 04-28-22 and on Paxil since 12-22-21 Pulse ox 96-98% on RA BP 119/81. HR 67 Did do fasting BS last Wednesday and was 125 using friend's glucometer, as does not currently one. Last appointment 04-21-22 Next 06-25-22 Admits to not eating enough and stopped drinking PRO drinks.Used to also eat toast with peanut butter, and admits to not even eating that anymore for breakfast. Requesting glucometer meter and supplies from [facility] in [place] Based on what you've told me, I do recommend that you: Routed to [place] Routed to [facility] Do you understand my recommendations? (After patient verifies understanding) If you develop any newsymptoms, your condition worsens, then GO TO THE EMERGENCY ROOM OR CALL 911. If you have any questions, please call us back. Reason for Disposition [1] Fatigue (i.e., tires easily, decreased energy) AND [2] persists > 1 week Answer Assessment - Initial Assessment Questions 1. DESCRIPTION: Still feeling tired and with no energy after sleeping 8-10 hours, and then falling asleep again forseveral hours again after waking up. 2. SEVERITY: Denies any issues with standing or walking. 3. ONSET: No weakness. Fatigue since May, but sleeping longer and then falling asleep again x one week. 4. CAUSE: Admit to poor appetite, and stopped drinking her PRO drinks recently. Also admits to not eating as much as she used to, in attempts to try and lose weight, which includes just sugar free hot cocoa or coffee for breakfast instead of usual peanut butter on toast. Will often fall asleep right after breakfast and AM meds including Metformin, but not does not have a glucometer to check her BS. Did have COVID 2 months ago, with fatigue since then too. Reports pacemaker and that HR and BP WNL for her. 5. MEDICINES: Remeron for sleep since 04-28-22. Paxil since 12-22-21 for depression after switch from Lexapro. 6. OTHER SYMPTOMS: Denies other Sx including no shortness of breath, vomiting , diarrhea, bleeding, chest pain or any other pain. 7. : N/A Protocols used: Weakness (Generalized) and [id number] documented in this encounterMiami [facility] Hospital12-27-2022 Miscellaneous Notes* Telephone Encounter - Julianna Cano LPN - 2022 8:47 AM EST Pt. informed . * Telephone Encounter - Michael Puga DO - 2022 7:56 AM EST Yes, I would like her to start on Remeron at bedtime. Stop the Ambien Michael Puga DO The following approved medication requests have been transmitted electronically. Requested Prescriptions Signed Prescriptions Disp Refills mirtazapine (REMERON) 15 mg tablet 30 tablet 1 Sig: Take 1 tablet by mouth daily at bedtime. For insomnia Authorizing Provider: MICHAEL PUGA DO * Telephone Encounter - Bhavna Arauz RN - 04/27/2022 10:42 AM EST Patient calls and states that she has been taking the Ambien 5 mg that was prescribed. Patient states that this has not been helping her at all. Patient asking if she can 10 mg or is there something else that provider would like her to try taking to help with sleep? Please review and advise, Bhavna Arauz RN documented in this encounterMiami [facility] Hospital12-20-2022 History of Present illness Narrative* Michael Puga DO - 04/21/2022 4:53 PM EST CC: Michael Meier is a 81 year old female who presents to the office for follow up HPI: Seen in office on 06/13/21, at that time: HTN, recently elevated, no CP or dyspnea or dizziness/LH, taking her medications as prescribed- losartan AM and diltiazem PM. CAD, PAD, taking medications as prescribed. Mood, overall feels she is coping okay with use of the Lexapro, rare use of Ativan. Getting some help with her disabled brother since he was just recently moved into a [place]. + fatigue, admits that she doesn't want to leave her home much recently, but denies that her depression is out of control. Did lose one of her best friends from covid 19 complication in Apr around her birthday time Just had pacemaker replaced 1 week ago, after previous was in place 12 years, still taking amiodarone, still going into Atrial fib off and on BLOOD PRESSURE has been elevated recently, no other symptpoms At follow up on 12/16/21 HTN, seems to be stable, denies any CP or dyspnea or dizziness/LH or edema. Has had episodes of hyponatremia. 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 Feels this doesn't make her feel well. Fatigue symptoms, feels she is more isolated for the last 2 years since covid 19 pandemic and limitations with getting out with friends. Also brother Serg [place] now and she is home alone. Has been on Lexapro for years- thinks this medication isn't working well to help her depressed mood. No SI or HI. Thinks medication needs changes. Taking the ativan with benefit for anxiety attack/panic feeling She was tapered off the lexapro and started on Paxil At last OFFICE VISIT on 02/16/2022 Mood, still struggling some with depressed mood but does feel that her Paxil is working better thanthe Lexapro. Still some fatigue. Feels her lack of motivation is related to feeling down about her obesity. Interested in options to help with her overeating/appetite and help with weight loss. Arthritis, multiple joints, use of cane, needing rx for handicap refilled. Fatigue symptoms, has iron deficiency but normal hemoglobin, isn't taking an oral supplement yet. Currently Mood, feeling better with depression, no anxiety, feels she is a little more motivated. Fatigue is still present, but feels likely because she is eating out more often and admits that she isn't exercising regularly. Arthritis, multiple joints, use of cane Hasn't been taking her vitamin b12 or iron supplements but knows needs to restart these. Atrial fibrillation, hx of CAD, seeing [employer]asing Machine Operator regularly Insomnia, long standing, thinks this is contributing to her mood and fatigue. Wondering if able to trial Ambien. States this works well for her sister PAST MEDICAL HISTORY Diagnosis Date A-fib (HCC) Allergic rhinitis, cause unspecified Arrhythmia Arthritis Greater trochanteric bursitis of left hip Melanoma of skin, site unspecified Malignant melanoma Osteoarthritis of left hip Other and unspecified hyperlipidemia Situational mixed anxiety and depressive disorder Sleep apnea Stroke (HCC) Unspecified essential hypertension Unspecified gastritis and gastroduodenitis PAST SURGICAL HISTORY Procedure Laterality Date ABDOMINAL SURGERY HX APPENDECTOMY APPENDECTOMY HX ARTHRP ACETBLR/PROX FEM PROSTC AGRFT/ALGRFT 12/09/2003 right hip, redone, 07/2004 ARTHRP ACETBLR/PROX FEM PROSTC AGRFT/ALGRFT Left 07/2016 ARTHRP KNE CONDYLE&PLATU MEDIAL&LAT COMPARTMENTS 11/15/2009 Knee replacement, total -Left - [facility] ARTHRP KNE CONDYLE&PLATU MEDIAL&LAT COMPARTMENTS 12/30/2009 Right knee replaced COLONOSCOPY FLX DX W/COLLJ SPEC WHEN PFRMD 06/29/2017 Colonoscopy EGD 10/17/2020 EGD W/O [facility] SPEC VARICIES INJ 01/08/2022 ESOPHAGOGASTRODUODENOSCOPY TRANSORAL DIAGNOSTIC 11/29/2000 EGD ESOPHAGOGASTRODUODENOSCOPY TRANSORAL DIAGNOSTIC 06/29/2017 EGD JOINT REPLACEMENT HX LAPS SURG CHOLECYSTECTOMY W/CHOLANGIOGRAPHY PACEMAKER IMPLANT 01/2011 SKIN BIOPSY HX TONSILLECTOMY HX TONSILLECTOMY PRIMARY/SECONDARY <AGE 12 Tonsillectomy TOTAL ABDOMINAL HYSTERECT W/WO RMVL TUBE OVARY Hysterectomy, GAL VAGINAL HYSTERECTOMY Current Outpatient Medications Medication Sig metFORMIN (GLUCOPHAGE) 500 mg tablet Take 1 tablet by mouth daily with breakfast. PARoxetine (PAXIL) 20 mg tablet Take 1 tablet by mouth once daily. In the evening rosuvastatin (CRESTOR) 10 mg tablet Take 1 tablet by mouth daily at bedtime. sucralfate (CARAFATE) 100 mg/mL suspension Take 10 mL by mouth four times daily. LORazepam (ATIVAN) 0.5 mg Take 1 tablet by mouth twice daily as needed (anxiety attack). Cholecalciferol, Vitamin D3, 50 mcg (2,000 unit) cap Take 1 capsule by mouth once daily. aspirin, enteric coated (ASPIRIN, ENTERIC COATED) 81 mg EC tablet Take 81 mg by mouth once daily. PACERONE 200 mg tablet Take 200 mg by mouth once daily. ubidecarenone (COQ-10 ORAL) Take by mouth. diltiazem CD (CARDIZEM CD) 240 mg 24 hr capsule Take 1 capsule by mouth once daily. losartan (COZAAR) 100 mg tablet Take 1 tablet by mouth once daily. zolpidem (AMBIEN) 5 mg tablet Take 1 tablet by mouth at bedtime as needed for sedation for up to 30days. No current facility-administered medications for this visit. ALLERGIES Allergen Reactions Ciprofloxacin Rash Demerol [Meperidine* Vomiting Opioids - Morphine * Intolerance nausea, dizzy, sees things Opioids-Meperidine * nausea/vomiting Penicillin G hives Pravachol [Pravasta* Other: See Comments Leg cramps Sulfa (Sulfonamide * hives Vicodin [Hydrocodon* Intolerance dizzy,nausea,vomiting,headache Zithromax [Azithrom* Intolerance Social History Tobacco Use Smoking status: Never Smokeless tobacco: Never Vaping Use Vaping Use: Never used Substance Use Topics Alcohol use: Not Currently Comment: rarely Drug use: No ROS: See H PI PE: BP 124/74 Pulse 60 Temp (Src) 96.8 (Left Tympanic) Resp 20 Wt 232 lb (105.2kg) Gen: A&OX3, NAD, non-toxic appearing, fatigue, slightly sullen appearing, well dressed, no distress HEENT: PERRLA, EOMs intact b/l, nares without drainage, pharynx without erythema, exudate, lesions,or drainage. Uvula midline. Neck: No LAD, no thyromegaly, no meningismus. CV: RRR, 2/6 HSM RUSB murmur, normal s1s2 Lungs: CTA b/l, no wheezing Skin: No rashes, lesions, or wounds on exposed skin. No edema, + spider and varicose veins ASSESSMENT/PLAN: 1. Dysthymia - ICD9: 300.4, ICD10: F34.1 (primary diagnosis) Stable, continue Paxil medication, tolerating well. 2. Situational insomnia - ICD9: 307.41, ICD10: F51.09 - rx as below, if not improved then consider remeron or amitriptyline or nortriptyline - ZOLPIDEM 5 MG TABLET 3. Arthritis, multiple joint involvement - ICD9: 716.99, ICD10: M12.9 Stable, use of cane and has handicap placard, no recent falls. 4. IFG (impaired fasting glucose) - ICD9: 790.21, ICD10: R73.01 - stable 5. Obesity, Class II, BMI 35-39.9 - ICD9: 278.00, ICD10: E66.9 Stable - Behavioral intervention and - Pharmacological intervention 6. Fatigue, unspecified type - ICD9: 780.79, ICD10: R53.83 - stable 7. Iron deficiency - ICD9: 280.9, ICD10: E61.1 - continue supplement. Michael Puga DO Return if no improvement. Follow up with Michael Puga DO. To ER if develops chest pain, shortness of breath Discussed risks, benefits, alternatives, and potential side effects of medications. Patient/Guardian expressed understanding and agreed with the plan. See patient instructions. Michael Puga DO [address] [place] [address] documented in this encounterMiami [facility]10-17-2022 History of Present illness Narrative* Michael Puga DO - 02/16/2022 12:27 PM EDT CC: Michael Meier is a 81 year old female who presents to the office for follow up HPI: Seen in office on 06/13/21, at that time: HTN, recently elevated, no CP or dyspnea or dizziness/LH, taking her medications as prescribed- losartan AM and diltiazem PM. CAD, PAD, taking medications as prescribed. Mood, overall feels she is coping okay with use of the Lexapro, rare use of Ativan. Getting some help with her disabled brother since he was just recently moved into a [place]. + fatigue, admits that she doesn't want to leave her home much recently, but denies that her depression is out of control. Did lose one of her best friends from covid 19 complication in Dec around her birthday time Just had pacemaker replaced 1 week ago, after previous was in place 12 years, still taking amiodarone, still going into Atrial fib off and on BLOOD PRESSURE has been elevated recently, no other symptpoms At follow up on 12/16/21 HTN, seems to be stable, denies any CP or dyspnea or dizziness/LH or edema. Has had episodes of hyponatremia. 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 Feels this doesn't make her feel well. Fatigue symptoms, feels she is more isolated for the last 2 years since covid 19 pandemic and limitations with getting out with friends. Also brother Serg is in [place] now and she is home alone. Has been on Lexapro for years- thinks this medication isn't working well to help her depressed mood. No SI or HI. Thinks medication needs changes. Taking the ativan with benefit for anxiety attack/panic feeling She was tapered off the lexapro and started on Paxil Currently Mood, still struggling some with depressed mood but does feel that her Paxil is working better thanthe Lexapro. Still some fatigue. Feels her lack of motivation is related to feeling down about her obesity. Interested in options to help with her overeating/appetite and help with weight loss. Arthritis, multiple joints, use of cane, needing rx for handicap refilled. Fatigue symptoms, has iron deficiency but normal hemoglobin, isn't taking an oral supplement yet. PAST MEDICAL HISTORY Diagnosis Date A-fib (HCC) Allergic rhinitis, cause unspecified Arrhythmia Arthritis Greater trochanteric bursitis of left hip Melanoma of skin, site unspecified Malignant melanoma Osteoarthritis of left hip Other and unspecified hyperlipidemia Situational mixed anxiety and depressive disorder Sleep apnea Stroke (HCC) Unspecified essential hypertension Unspecified gastritis and gastroduodenitis PAST SURGICAL HISTORY Procedure Laterality Date ABDOMINAL SURGERY HX APPENDECTOMY APPENDECTOMY HX ARTHRP ACETBLR/PROX FEM PROSTC AGRFT/ALGRFT 12/09/2003 right hip, redone, 07/2004 ARTHRP ACETBLR/PROX FEM PROSTC AGRFT/ALGRFT Left 07/2016 ARTHRP KNE CONDYLE&PLATU MEDIAL&LAT COMPARTMENTS 11/15/2009 Knee replacement, total -Left - [facility] ARTHRP KNE CONDYLE&PLATU MEDIAL&LAT COMPARTMENTS 12/30/2009 Right knee replaced COLONOSCOPY FLX DX W/COLLJ SPEC WHEN PFRMD 06/29/2017 Colonoscopy EGD 10/17/2020 EGD W/O [facility] SPEC VARICIES INJ 01/08/2022 ESOPHAGOGASTRODUODENOSCOPY TRANSORAL DIAGNOSTIC 11/29/2000 EGD ESOPHAGOGASTRODUODENOSCOPY TRANSORAL DIAGNOSTIC 06/29/2017 EGD JOINT REPLACEMENT HX LAPS SURG CHOLECYSTECTOMY W/CHOLANGIOGRAPHY PACEMAKER IMPLANT 01/2011 SKIN BIOPSY HX TONSILLECTOMY HX TONSILLECTOMY PRIMARY/SECONDARY <AGE 12 Tonsillectomy TOTAL ABDOMINAL HYSTERECT W/WO RMVL TUBE OVARY Hysterectomy, GAL VAGINAL HYSTERECTOMY Current Outpatient Medications Medication Sig PARoxetine (PAXIL) 20 mg tablet Take 1 tablet by mouth once daily. In the evening rosuvastatin (CRESTOR) 10 mg tablet Take 1 tablet by mouth daily at bedtime. sucralfate (CARAFATE) 100 mg/mL suspension Take 10 mL by mouth four times daily. LORazepam (ATIVAN) 0.5 mg Take 1 tablet by mouth twice daily as needed (anxiety attack). Cholecalciferol, Vitamin D3, 50 mcg (2,000 unit) cap Take 1 capsule by mouth once daily. aspirin, enteric coated (ASPIRIN, ENTERIC COATED) 81 mg EC tablet Take 81 mg by mouth once daily. PACERONE 200 mg tablet Take 200 mg by mouth once daily. ubidecarenone (COQ-10 ORAL) Take by mouth. diltiazem CD (CARDIZEM CD) 240 mg 24 hr capsule Take 1 capsule by mouth once daily. losartan (COZAAR) 100 mg tablet Take 1 tablet by mouth once daily. metFORMIN (GLUCOPHAGE) 500 mg tablet Take 1 tablet by mouth daily with breakfast. No current facility-administered medications for this visit. ALLERGIES Allergen Reactions Ciprofloxacin Rash Demerol [Meperidine* Vomiting Opioids - Morphine * Intolerance nausea, dizzy, sees things Opioids-Meperidine * nausea/vomiting Penicillin G hives Pravachol [Pravasta* Other: See Comments Leg cramps Sulfa (Sulfonamide * hives Vicodin [Hydrocodon* Intolerance dizzy,nausea,vomiting,headache Zithromax [Azithrom* Intolerance Social History Tobacco Use Smoking status: Never Smokeless tobacco: Never Vaping Use Vaping Use: Never used Substance Use Topics Alcohol use: Not Currently Comment: rarely Drug use: No ROS: See HPI PE: BP 146/70 Pulse 68 Temp (Src) 97 (Left Tympanic) Resp 16 Wt 233 lb (105.7kg) Gen: A&OX3, NAD, non-toxic appearing, fatigue, slightly sullen appearing, well dressed, no distress HEENT: PERRLA, EOMs intact b/l, nares without drainage, pharynx without erythema, exudate, lesions,or drainage. Uvula midline. Neck: No LAD, no thyromegaly, no meningismus. CV: RRR, 2/6 HSM RUSB murmur, normal s1s2 Lungs: CTA b/l, no wheezing Skin: No rashes, lesions, or wounds on exposed skin. No edema, + spider and varicose veins ASSESSMENT/PLAN: 1. Dysthymia - ICD9: 300.4, ICD10: F34.1 (primary diagnosis) Continue Paxil, take this with supper instead of bed to see if helps fatigue symptoms, no SI or HI 2. Need for influenza vaccination - ICD9: V04.81, ICD10: Z23 - INFLUENZA SEASONAL QUADRIVALENT HIGH DOSE AGE 65+ 3. Arthritis, multiple joint involvement - ICD9: 716.99, ICD10: M12.9 rx printed, use of cane as needed, no recent falls. - PARKING FOR HANDICAPPED 4. IFG (impaired fasting glucose) - ICD9: 790.21, ICD10: R73.01 - start on metformin to help with glucose management as well as weight loss efforts. - METFORMIN 500 MG TABLET 5. Obesity, Class II, BMI 35-39.9 - ICD9: 278.00, ICD10: E66.9 - start on metformin to help with glucose management as well as weight loss efforts. - METFORMIN 500 MG TABLET 6. Fatigue, unspecified type - ICD9: 780.79, ICD10: R53.83 Continue Paxil, take this with supper instead of bed to see if helps fatigue symptoms, no SI or HI 7. Iron deficiency - ICD9: 280.9, ICD10: E61.1 Continue Paxil, take this with supper instead of bed to see if helps fatigue symptoms, no SI or HI Start on iron supplement once a day with breakfast or lunch Michael Puga DO Return if no improvement. Follow up with Michael Puga DO. To ER if develops chest pain, shortness of breath Discussed risks, benefits, alternatives, and potential side effects of medications. Patient/Guardian expressed understanding and agreed with the plan. See patient instructions. Michael Puga DO [address] [place] [address] documented in this encounterMiami [facility] Hospital09-16-2022 History of Present illness Narrative* Raymundo De León MD - 01/16/2022 10:12 AM EDT Subjective: Patient is status post an EGD completed on 01/08/2022. Biopsy of the stomach did not reveal any abnormalities H. pylori staining was negative. Distal esophageal biopsy showed squamous mucosa with no diagnostic abnormalities no eosinophils or lymphocytes or intestinal metaplasia was identified. Patient states that since she has not been eating so late at night her symptoms have improved. Objective:Pulse 80, temperature 36.4 C (97.6 F), weight 105.1 kg (231 lb 9.6 oz), SpO2 96 %. Abdomen is soft and nontender Assessment:Gastroesophageal reflux disease with esophagitis without hemorrhage (primary encounter diagnosis) Plan: Patient will need to have another EGD in 3 to 5 years. Nothing further is needed at this time. [facility] History and physical note * Raymundo De León MD - 01/08/2022 2:15 PM EDT Images from the original note were not included. HISTORY AND PHYSICAL Michael Deras Hardeep 1940 REFERRING PHYSICIAN: Michael Puga DO CHIEF COMPLAINT: Consult (Increased GERD) HPI: The patient is a 81 year old female referred for endoscopy. Michael notes no history of colon complaints. The patient notes the following upper complaints: Michael notes abdominal pain. The pain occurs in the following locations: epigastric region, The pain has the following character: burning, The pain has been present for 3 months, The pain occurs daily . Michael notes heartburn. Michael denies dysphagia. Michael denies a history of ulcers/ peptic ulcer disease. Michael has undergone prior endoscopy. EGD October 2020 The patient is being seen by me today at the request of Dr. Michael Puga DO for my opinion and advice regarding Gastroesophageal reflux disease with esophagitis without hemorrhage (primary encounter diagnosis). PAST MEDICAL HISTORY PAST MEDICAL HISTORY Diagnosis Date A-fib (HCC) Allergic rhinitis, cause unspecified Arrhythmia Arthritis Greater trochanteric bursitis of left hip Melanoma of skin, site unspecified Malignant melanoma Osteoarthritis of left hip Other and unspecified hyperlipidemia Situational mixed anxiety and depressive disorder Sleep apnea Stroke (HCC) Unspecified essential hypertension Unspecified gastritis and gastroduodenitis PAST SURGICAL HISTORY PAST SURGICAL HISTORY Procedure Laterality Date ABDOMINAL SURGERY HX APPENDECTOMY APPENDECTOMY HX ARTHRP ACETBLR/PROX FEM PROSTC AGRFT/ALGRFT 12/09/2003 right hip, redone, 07/2004 ARTHRP ACETBLR/PROX FEM PROSTC AGRFT/ALGRFT Left 07/2016 ARTHRP KNE CONDYLE&PLATU MEDIAL&LAT COMPARTMENTS 11/15/2009 Knee replacement, total -Left - [facility] ARTHRP KNE CONDYLE&PLATU MEDIAL&LAT COMPARTMENTS 12/30/2009 Right knee replaced COLONOSCOPY FLX DX W/COLLJ SPEC WHEN PFRMD 06/29/2017 Colonoscopy EGD 10/17/2020 ESOPHAGOGASTRODUODENOSCOPY TRANSORAL DIAGNOSTIC 11/29/2000 EGD ESOPHAGOGASTRODUODENOSCOPY TRANSORAL DIAGNOSTIC 06/29/2017 EGD JOINT REPLACEMENT HX LAPS SURG CHOLECYSTECTOMY W/CHOLANGIOGRAPHY PACEMAKER IMPLANT 01/2011 SKIN BIOPSY HX TONSILLECTOMY HX TONSILLECTOMY PRIMARY/SECONDARY <AGE 13 Tonsillectomy TOTAL ABDOMINAL HYSTERECT W/WO RMVL TUBE OVARY Hysterectomy, GAL VAGINAL HYSTERECTOMY CURRENT MEDICATIONS Current Outpatient Medications Medication Sig PARoxetine (PAXIL) 20 mg tablet Take 1 tablet by mouth once daily. In the evening rosuvastatin (CRESTOR) 10 mg tablet Take 1 tablet by mouth daily at bedtime. sucralfate (CARAFATE) 100 mg/mL suspension Take 10 mL by mouth four times daily. LORazepam (ATIVAN) 0.5 mg Take 1 tablet by mouth twice daily as needed (anxiety attack). Cholecalciferol, Vitamin D3, 50 mcg (2,000 unit) cap Take 1 capsule by mouth once daily. aspirin, enteric coated (ASPIRIN, ENTERIC COATED) 81 mg EC tablet Take 81 mg by mouth once daily. PACERONE 200 mg tablet Take 200 mg by mouth once daily. ubidecarenone (COQ-10 ORAL) Take by mouth. diltiazem CD (CARDIZEM CD) 240 mg 24 hr capsule Take 1 capsule by mouth once daily. losartan (COZAAR) 100 mg tablet Take 1 tablet by mouth once daily. No current facility-administered medications for this visit. ALLERGIES: Ciprofloxacin, Demerol [Meperidine (Pf)], Opioids - Morphine Analogues, Opioids-Meperidine And Related, Penicillin G, Pravachol [Pravastatin Sodium], Sulfa (Sulfonamide Antibiotics), Vicodin [Hydrocodone-Acetaminophen], and Zithromax [Azithromycin] PERSONAL HISTORY: SOCIAL HISTORY Social History Tobacco Use Smoking status: Never Smokeless tobacco: Never Vaping Use Vaping Use: Never used Substance Use Topics Alcohol use: Not Currently Comment: rarely Drug use: No FAMILY HISTORY: FAMILY HISTORY FAMILY HISTORY Problem Relation Age of Onset Coronary Artery Disease Mother other (cardiac arrest) Mother Coronary Artery Disease Father Diabetes Father other (congestive heart failure) Father REVIEW OF SYMPTOMS: The review of systems data was entered by the nurse and reviewed by wa Nursing Notes: Portia Camarillo RN 12/18/2021 3:15 PM Signed REVIEW OF SYSTEMS: General: The patient denies fatigue, denies weight loss, denies weight gain, denies feeling hot, and denies feelings of cold. Eyes: The patient denies glaucoma, denies eye injury/surgery, wears glasses or contacts. Ear/Nose/Throat: The patient NOTES allergies, NOTES hayfever, denies ear infections, and denies bloody noses. Cardiovascular: The patient denies chest pain, denies heart disease, NOTES high blood pressure,denies cardiac stent, denies prior heart attack, NOTES irregular heart beat, NOTES high cholesterol, denies poor circulation, denies heart failure, other cardiac issues, denies claudication, denies cold feet, denies peripheral arterial stent. Respiratory: The patient denies tuberculosis, denies pneumonia, denies frequent cough, denies pulmonary embolism, denies shortness of breath, and denies coughing up blood. Gastrointestinal: The patient denies difficulty swallowing, NOTES acid reflux, denies ulcers, denies vomiting, denies jaundice/hepatitis, denies gallbladder problems, denies black or tarry stools, denies hemorrhoids, denies bleeding from rectum, denies diverticulitis, denies constipation, denies diarrhea, denies loss of stool control, and denies hernias. Kidney/Bladder: The patient denies kidney stones, denies urine infections, and denies bloody urine. Skin: The patient NOTES a history of skin cancer, denies bleeding/changing moles, and denies a history of skin rash. Neurologic: The patient denies a history of epilepsy/convulsions, denies headaches, denies head/spinal injuries, and NOTES stroke/TIA. Psychiatric: The patient denies psychiatric medications, NOTES depression, and denies voices, denies substance abuse. Endocrine: The patient denies thyroid disorders, denies diabetes, and denies hormonal problems. Hematologic: The patient denies a history of bruising, denies bleeding, and denies anemia, denies blood clots. Infections: The patient denies a history of measles and mumps, denies rheumatic fever, and denies sexually transmitted diseases. Musculoskeletal: The patient denies back pain/injury, denies back problems, denies sciatica, deniesknee/foot trouble, NOTES arthritis, or denies gout. When was patient's last Mammogram screening? 04/03/2019 Last Colonoscopy: 06/29/2017 Portia Camarillo RN PHYSICAL EXAMINATION: General: The patient is 81 year old female, well nourished, well hydrated in no acute distress. Thepatient is oriented to time, place, and person. VITALS: Blood pressure 138/70, pulse 78, temperature 37.1 C (98.7 F), height 165.1 cm (5' 5), weight 102.5 kg (226 lb), SpO2 98 %. Body mass index is 37.61 kg/m . HEENT: Normal cephalic, ataumatic, pupils are equally round, sclera are anicteric, mucous membranesare moist, oropharynx is clear. Neck has no masses, asymmetry or lymphadenopathy. Thyroid is unremarkable. Respiratory: Clear to auscultation and percussion. Normal respiratory excursion and pattern. Cardiac: Examination is regular rate and rhythm. Abdominal exam: Soft, nontender, with no palpable masses. No hepatosplenomegaly. No palpable hernias. Rectal exam: exam deferred Extremities: no clubbing, cyanosis or edema. No adenopathy. Other: LABORATORY VALUES: As Noted RADIOLOGIC STUDIES: As Noted Assessment IMPRESSION: Gastroesophageal reflux disease with esophagitis without hemorrhage (primary encounter diagnosis) PLAN: I plan to perform upper endoscopy. We discussed the risks and benefits of the planned endoscopy. I have informed the patient that complications can occur including failure to complete the endoscopy and perforation. The patient had the opportunity to ask questions concerning the planned endoscopy. My staff has also explained the procedure to the patient in understandable terms and has given the patient printed material concerning the procedure. The patient freely consents to surgery. Diagnoses: (K21.00) Gastroesophageal reflux disease with esophagitis without hemorrhage (primary encounter diagnosis) My findings have been communicated to Dr. Michael Puga DO via shared medical record. This note will be forwarded to Dr. Michael Puga DO. Return to Clinic: The patient is instructed to follow-up with me after the testing has been completed. COVID (Procedure Consent) Procedure Criteria Procedure Criteria: Yes Elective The surgeon/proceduralist and patient have discussed in detail therisk of exposure to and/or potential harm posed by the COVID-19 virus with having a surgery/procedure at this time versus the risk of delaying the surgery/procedure. It is not possible to know eitherthe risk of delaying the surgery or procedure or chance of getting an infection with perfect accuracy, but a joint decision was made between the patient and the surgeon/proceduralist to proceed at this time with the scheduled surgery/procedure as indicated on the consent form. Raymundo De León III, MD Note Details UPDATED HISTORY AND PHYSICAL EXAMINATION SERVICE DATE: 01/08/2022 SERVICE TIME: 1:00 PM PHYSICAL EXAM MUST BE COMPLETED ON ADMISSION The History and Physical (completed in the past 30 days) has been reviewed and the patient has beenexamined. The contents accurately reflect the patient's condition with the following additions or revisions since the H&P was completed. Examination indicates no changes. This H&P can be found in the attached. SIGNATURE: Raymundo De León III, MD PATIENT NAME: Michael Meier DATE: January 08, 2022 TIME: 1:00 PM documented [facility] Nurse Note* Nyla Fraga RN - 01/08/2022 2:05 PM EDT Patient arrived laying on left side. States that she is not having any pain at this time. Patient'sabdomen appears to be nondistended and soft at this time. documented [facility]22 Miscellaneous Notes* Telephone Encounter - Joshua King - 12/31/2021 11:49 AM EDT Received last note and Pacer check from [facility]. Scanned into [employer] and given to [facility] nurses to review Joshua King documented in this encounterMi[facility]08-18-[facility]22 History of Present illness Narrative* Raymundo De León MD - 12/18/2021 3:18 PM EDT HISTORY AND PHYSICAL Michael Deras Hardeep 1940 REFERRING PHYSICIAN: Michael Puga DO CHIEF COMPLAINT: Consult (Increased GERD) HPI: The patient is a 81 year old female referred for endoscopy. Michael notes no history of colon complaints. The patient notes the following upper complaints: Michael notes abdominal pain. The pain occurs in the following locations: epigastric region, The pain has the following character: burning, The pain has been present for 3 months, The pain occurs daily . Michael notes heartburn. Michael denies dysphagia. Michael denies a history of ulcers/ peptic ulcer disease. Michael has undergone prior endoscopy. EGD October 2020 The patient is being seen by me today at the request of Dr. Michael Puga DO for my opinion and advice regarding Gastroesophageal reflux disease with esophagitis without hemorrhage (primary encounter diagnosis). PAST MEDICAL HISTORY Diagnosis Date A-fib (HCC) Allergic rhinitis, cause unspecified Arrhythmia Arthritis Greater trochanteric bursitis of left hip Melanoma of skin, site unspecified Malignant melanoma Osteoarthritis of left hip Other and unspecified hyperlipidemia Situational mixed anxiety and depressive disorder Sleep apnea Stroke (HCC) Unspecified essential hypertension Unspecified gastritis and gastroduodenitis PAST SURGICAL HISTORY Procedure Laterality Date ABDOMINAL SURGERY HX APPENDECTOMY APPENDECTOMY HX ARTHRP ACETBLR/PROX FEM PROSTC AGRFT/ALGRFT 12/09/2003 right hip, redone, 07/2004 ARTHRP ACETBLR/PROX FEM PROSTC AGRFT/ALGRFT Left 07/2016 ARTHRP KNE CONDYLE&PLATU MEDIAL&LAT COMPARTMENTS 11/15/2009 Knee replacement, total -Left - [facility] ARTHRP KNE CONDYLE&PLATU MEDIAL&LAT COMPARTMENTS 12/30/2009 Right knee replaced COLONOSCOPY FLX DX W/COLLJ SPEC WHEN PFRMD 06/29/2017 Colonoscopy EGD 10/17/2020 ESOPHAGOGASTRODUODENOSCOPY TRANSORAL DIAGNOSTIC 11/29/2000 EGD ESOPHAGOGASTRODUODENOSCOPY TRANSORAL DIAGNOSTIC 06/29/2017 EGD JOINT REPLACEMENT HX LAPS SURG CHOLECYSTECTOMY W/CHOLANGIOGRAPHY PACEMAKER IMPLANT 01/2011 SKIN BIOPSY HX TONSILLECTOMY HX TONSILLECTOMY PRIMARY/SECONDARY <AGE 13 Tonsillectomy TOTAL ABDOMINAL HYSTERECT W/WO RMVL TUBE OVARY Hysterectomy, GAL VAGINAL HYSTERECTOMY Current Outpatient Medications Medication Sig PARoxetine (PAXIL) 20 mg tablet Take 1 tablet by mouth once daily. In the evening rosuvastatin (CRESTOR) 10 mg tablet Take 1 tablet by mouth daily at bedtime. sucralfate (CARAFATE) 100 mg/mL suspension Take 10 mL by mouth four times daily. LORazepam (ATIVAN) 0.5 mg Take 1 tablet by mouth twice daily as needed (anxiety attack). Cholecalciferol, Vitamin D3, 50 mcg (2,000 unit) cap Take 1 capsule by mouth once daily. aspirin, enteric coated (ASPIRIN, ENTERIC COATED) 81 mg EC tablet Take 81 mg by mouth once daily. PACERONE 200 mg tablet Take 200 mg by mouth once daily. ubidecarenone (COQ-10 ORAL) Take by mouth. diltiazem CD (CARDIZEM CD) 240 mg 24 hr capsule Take 1 capsule by mouth once daily. losartan (COZAAR) 100 mg tablet Take 1 tablet by mouth once daily. No current facility-administered medications for this visit. ALLERGIES: Ciprofloxacin, Demerol [Meperidine (Pf)], Opioids - Morphine Analogues, Opioids-Meperidine And Related, Penicillin G, Pravachol [Pravastatin Sodium], Sulfa (Sulfonamide Antibiotics), Vicodin [Hydrocodone-Acetaminophen], and Zithromax [Azithromycin] PERSONAL HISTORY: Social History Tobacco Use Smoking status: Never Smokeless tobacco: Never Vaping Use Vaping Use: Never used Substance Use Topics Alcohol use: Not Currently Comment: rarely Drug use: No FAMILY HISTORY: FAMILY HISTORY Problem Relation Age of Onset Coronary Artery Disease Mother other (cardiac arrest) Mother Coronary Artery Disease Father Diabetes Father other (congestive heart failure) Father REVIEW OF SYMPTOMS: The review of systems data was entered by the nurse and reviewed by wa Nursing Notes: Portia Camarillo RN 12/18/2021 3:15 PM Signed REVIEW OF SYSTEMS: General: The patient denies fatigue, denies weight loss, denies weight gain, denies feeling hot, and denies feelings of cold. Eyes: The patient denies glaucoma, denies eye injury/surgery, wears glasses or contacts. Ear/Nose/Throat: The patient NOTES allergies, NOTES hayfever, denies ear infections, and denies bloody noses. Cardiovascular: The patient denies chest pain, denies heart disease, NOTES high blood pressure,denies cardiac stent, denies prior heart attack, NOTES irregular heart beat, NOTES high cholesterol, denies poor circulation, denies heart failure, other cardiac issues, denies claudication, denies cold feet, denies peripheral arterial stent. Respiratory: The patient denies tuberculosis, denies pneumonia, denies frequent cough, denies pulmonary embolism, denies shortness of breath, and denies coughing up blood. Gastrointestinal: The patient denies difficulty swallowing, NOTES acid reflux, denies ulcers, denies vomiting, denies jaundice/hepatitis, denies gallbladder problems, denies black or tarry stools, denies hemorrhoids, denies bleeding from rectum, denies diverticulitis, denies constipation, denies diarrhea, denies loss of stool control, and denies hernias. Kidney/Bladder: The patient denies kidney stones, denies urine infections, and denies bloody urine. Skin: The patient NOTES a history of skin cancer, denies bleeding/changing moles, and denies a history of skin rash. Neurologic: The patient denies a history of epilepsy/convulsions, denies headaches, denies head/spinal injuries, and NOTES stroke/TIA. Psychiatric: The patient denies psychiatric medications, NOTES depression, and denies voices, denies substance abuse. Endocrine: The patient denies thyroid disorders, denies diabetes, and denies hormonal problems. Hematologic: The patient denies a history of bruising, denies bleeding, and denies anemia, denies blood clots. Infections: The patient denies a history of measles and mumps, denies rheumatic fever, and denies sexually transmitted diseases. Musculoskeletal: The patient denies back pain/injury, denies back problems, denies sciatica, deniesknee/foot trouble, NOTES arthritis, or denies gout. When was patient's last Mammogram screening? 04/03/2019 Last Colonoscopy: 06/29/2017 Portia Camarillo RN PHYSICAL EXAMINATION: General: The patient is 81 year old female, well nourished, well hydrated in no acute distress. Thepatient is oriented to time, place, and person. VITALS: Blood pressure 138/70, pulse 78, temperature 37.1 C (98.7 F), height 165.1 cm (5' 5), weight 102.5 kg (226 lb), SpO2 98 %. Body mass index is 37.61 kg/m . HEENT: Normal cephalic, ataumatic, pupils are equally round, sclera are anicteric, mucous membranesare moist, oropharynx is clear. Neck has no masses, asymmetry or lymphadenopathy. Thyroid is unremarkable. Respiratory: Clear to auscultation and percussion. Normal respiratory excursion and pattern. Cardiac: Examination is regular rate and rhythm. Abdominal exam: Soft, nontender, with no palpable masses. No hepatosplenomegaly. No palpable hernias. Rectal exam: exam deferred Extremities: no clubbing, cyanosis or edema. No adenopathy. Other: LABORATORY VALUES: As Noted RADIOLOGIC STUDIES: As Noted Assessment IMPRESSION: Gastroesophageal reflux disease with esophagitis without hemorrhage (primary encounter diagnosis) PLAN: I plan to perform upper endoscopy. We discussed the risks and benefits of the planned endoscopy. I have informed the patient that complications can occur including failure to complete the endoscopy and perforation. The patient had the opportunity to ask questions concerning the planned endoscopy. My staff has also explained the procedure to the patient in understandable terms and has given the patient printed material concerning the procedure. The patient freely consents to surgery. Diagnoses: (K21.00) Gastroesophageal reflux disease with esophagitis without hemorrhage (primary encounter diagnosis) My findings have been communicated to Dr. Michael Puga DO via shared medical record. This note will be forwarded to Dr. Michael Puga DO. Return to Clinic: The patient is instructed to follow-up with me after the testing has been completed. COVID (Procedure Consent) Procedure Criteria Procedure Criteria: Yes Elective The surgeon/proceduralist and patient have discussed in detail therisk of exposure to and/or potential harm posed by the COVID-19 virus with having a surgery/procedure at this time versus the risk of delaying the surgery/procedure. It is not possible to know eitherthe risk of delaying the surgery or procedure or chance of getting an infection with perfect accuracy, but a joint decision was made between the patient and the surgeon/proceduralist to proceed at this time with the scheduled surgery/procedure as indicated on the consent form. Raymundo De León III, MD documented in this encounterMi[facility]08-18-[facility]22 Nurse Note* Portia Camarillo RN - 12/18/2021 3:13 PM EDT REVIEW OF SYSTEMS: General: The patient denies fatigue, denies weight loss, denies weight gain, denies feeling hot, and denies feelings of cold. Eyes: The patient denies glaucoma, denies eye injury/surgery, wears glasses or contacts. Ear/Nose/Throat: The patient NOTES allergies, NOTES hayfever, denies ear infections, and denies bloody noses. Cardiovascular: The patient denies chest pain, denies heart disease, NOTES high blood pressure,denies cardiac stent, denies prior heart attack, NOTES irregular heart beat, NOTES high cholesterol, denies poor circulation, denies heart failure, other cardiac issues, denies claudication, denies cold feet, denies peripheral arterial stent. Respiratory: The patient denies tuberculosis, denies pneumonia, denies frequent cough, denies pulmonary embolism, denies shortness of breath, and denies coughing up blood. Gastrointestinal: The patient denies difficulty swallowing, NOTES acid reflux, denies ulcers, denies vomiting, denies jaundice/hepatitis, denies gallbladder problems, denies black or tarry stools, denies hemorrhoids, denies bleeding from rectum, denies diverticulitis, denies constipation, denies diarrhea, denies loss of stool control, and denies hernias. Kidney/Bladder: The patient denies kidney stones, denies urine infections, and denies bloody urine. Skin: The patient NOTES a history of skin cancer, denies bleeding/changing moles, and denies a history of skin rash. Neurologic: The patient denies a history of epilepsy/convulsions, denies headaches, denies head/spinal injuries, and NOTES stroke/TIA. Psychiatric: The patient denies psychiatric medications, NOTES depression, and denies voices, denies substance abuse. Endocrine: The patient denies thyroid disorders, denies diabetes, and denies hormonal problems. Hematologic: The patient denies a history of bruising, denies bleeding, and denies anemia, denies blood clots. Infections: The patient denies a history of measles and mumps, denies rheumatic fever, and denies sexually transmitted diseases. Musculoskeletal: The patient denies back pain/injury, denies back problems, denies sciatica, deniesknee/foot trouble, NOTES arthritis, or denies gout. When was patient's last Mammogram screening? 04/03/2019 Last Colonoscopy: 06/29/2017 Portia Camarillo RN documented in this encounterMi[facility]06-20-[facility]22 History of Present illness Narrative* Nunu Gonzalez PA-C - 10/20/2021 3:36 PM EDT 10/20/2021 Patient presents with: UTI: burning, urgency, frequency, pain x3 days SUBJECTIVE: This is a 81 year old that is here today for Complaint(s) of dysuria and increased urinary frequency x 3 days. Noticed some pink when wiping. Notes increased lower abdominal discomfort/pressure. Has had UTIs previously, feels similar, but has been several years. Denies fever/chills, back pain, nausea, vomiting, abdominal pain. No known history of DM. Patient did take AZO. Non-smoker PAST MEDICAL HISTORY Diagnosis Date A-fib (HCC) Allergic rhinitis, cause unspecified Arrhythmia Arthritis Greater trochanteric bursitis of left hip Melanoma of skin, site unspecified Malignant melanoma Osteoarthritis of left hip Other and unspecified hyperlipidemia Situational mixed anxiety and depressive disorder Sleep apnea Stroke (HCC) Unspecified essential hypertension Unspecified gastritis and gastroduodenitis ALLERGIES Ciprofloxacin, Demerol [Meperidine (Pf)], Opioids - Morphine Analogues, Opioids-Meperidine And Related, Penicillin G, Pravachol [Pravastatin Sodium], Sulfa (Sulfonamide Antibiotics), Vicodin [Hydrocodone-Acetaminophen], and Zithromax [Azithromycin] MEDICATIONS Current Outpatient Medications Medication Sig rosuvastatin (CRESTOR) 10 mg tablet Take 1 tablet by mouth daily at bedtime. sucralfate (CARAFATE) 100 mg/mL suspension Take 10 mL by mouth four times daily. escitalopram oxalate (LEXAPRO) 20 mg tablet Take 1 tablet by mouth once daily. LORazepam (ATIVAN) 0.5 mg Take 1 tablet by mouth twice daily as needed (anxiety attack). Cholecalciferol, Vitamin D3, 50 mcg (2,000 unit) cap Take 1 capsule by mouth once daily. omeprazole (PRILOSEC) 20 mg capsule Take 1 capsule by mouth once daily. aspirin, enteric coated (ASPIRIN, ENTERIC COATED) 81 mg EC tablet Take 81 mg by mouth once daily. PACERONE 200 mg tablet Take 200 mg by mouth once daily. ubidecarenone (COQ-10 ORAL) Take by mouth. vit A/vit C/vit E/zinc/copper (PRESERVISION AREDS ORAL) Take by mouth. diltiazem CD (CARDIZEM CD) 240 mg 24 hr capsule Take 1 capsule by mouth once daily. losartan (COZAAR) 100 mg tablet Take 1 tablet by mouth once daily. No current facility-administered medications for this visit. SOCIAL HISTORY Social History Tobacco Use Smoking status: Never Smoker Smokeless tobacco: Never Used Substance Use Topics Alcohol use: Not Currently Comment: rarely Drug use: No REVIEW OF SYSTEMS See HPI OBJECTIVE: BP 134/80 Pulse 61 Temp 37.2 C (98.9 F) Resp 20 Wt 101.3 kg (223 lb 6.4 oz) SpO2 95% BMI 36.61 kg/m APPEARANCE Well appearing, alert, in no acute distress, well-hydrated, well nourished. ABDOMEN soft, non-tender, non-distended, without organomegaly or palpable masses, no tenderness to palpation BACK: Normal exam, no CVA TTP ASSESSMENT/PLAN: 1. Urinary frequency - ICD9: 788.41, ICD10: R35.0 (primary diagnosis) acute - UA positive for jordan esterase, hematuria, proteinuria, nitrates and glucose POC glucose 116. Patient took Azo If culture negative, recommend repeat UA in 2-4 weeks. - Send urine for culture - Begin treatment with Macrobid 100 mg BID for 5 days - Patient education for prevention given - UA DIP, URINE (POC) - URINE CULTURE - GLUCOSE, BLOOD (POC) Reviewed recent CMP/CBC 2. Glucosuria - ICD9: 791.5, ICD10: R81 BG POC 116 As above - GLUCOSE, BLOOD (POC) The patient indicates understanding of these issues and agrees with the plan. Reviewed red flags and when to seek care sooner. Nunu Gonzalez PA-C [facility] Miscellaneous Notes* Telephone Encounter - Jacque Dumont Ma - 06/20/2021 8:08 AM EST Pt notified and verbalized understanding Jacque Dumont Ma * Telephone Encounter - Asia Rosales APRN.CNP - 06/19/2021 5:43 PM EST Please let Michael know that her lab results look good, no concerns. Asia Rosales APRN.CNP [facility] Evaluation note* Diagnosis Onset Date Resolution Status Fatigue acute Essential (primary) hypertension chronic History of permanent cardiac pacemaker placement June 09, 2021 chronic Hyperlipidemia chronic Paroxysmal atrial fibrillation chronic History of permanent cardiac pacemaker placement June 09, 2021 chronic Paroxysmal atrial fibrillation chronic Sick sinus syndrome chronic History of permanent cardiac pacemaker placement June 09, 2021 chronic Paroxysmal atrial fibrillation chronic Sick sinus syndrome [facility] Work Phone: 1(478) [phone] History of Past illness Narrative* Problem Noted Date Resolved Date Gastroesophageal reflux disease 10/17/2020 10/17/2020 Hyperlipidemia 03/11/2015 08/16/2015 BMI 37.0-37.9, adult 03/11/2015 08/16/2015 Irriated//Inflamed Seborrheic Keratoses 12/02/19 14 03/11/2015 Other Seborrheic Keratoses 12/01/201303/11 Xerosis cutis 12/01/2013 03/11/2015 Cutaneous skin tags 12/01/2013 03/11/2015 Actinic skin damage 01/09/2012 03/11/2015 Solar Lentigines 01/09/2012 03/11/2015 Surgical Scars 01/09/2012 03/11/2015 A-fib 10/08/2010 03/11/2015 Last Assessment & Plan: Dx. after [facility] 2009 Actinic keratosis 01/20/2007 03/11/2015 Other chronic dermatitis due to solar radiation 01/20/2007 01/09/2012 Scar condition and fibrosis of skin 01/20/2007 03/11/2015 SOLAR LENGINES///DYSCHROMIA OTHER 01/20/2007 01/09/2012 Other seborrheic keratosis 01/20/200701/08 NEVUS///BENIGN COLIN SKIN TRUNK 01/20/2007 NEVI///BENIGN COLIN SKIN FACE NEC 01/20/2007 01/09/2012 SEBACEOUS HYPERPLASIA///SEBACEOUS GLAND DIS NOS 01/20/2007 01/09/2012 Melanoma of skin, site unspecified 01/09/2012 Overview: Malignant melanoma Other and unspecified hyperlipidemia 03/11/2015 Unspecified gastritis and gastroduodenitis 03/11/2015 documented as of this encounter (statuses as of 09/02/2021) [facility] of Past illness Narrative* Problem Noted Date Resolved Date Gastroesophageal reflux disease 10/17/2020 10/17/2020 Hyperlipidemia 03/11/2015 08/16/2015 BMI 37.0-37.9, adult 03/11/2015 08/16/2015 Irriated//Inflamed Seborrheic Keratoses 12/02/19 14 03/11/2015 Other Seborrheic Keratoses 12/01/201303/11 Xerosis cutis 12/01/2013 03/11/2015 Cutaneous skin tags 12/01/2013 03/11/2015 Actinic skin damage 01/09/2012 03/11/2015 Solar Lentigines 01/09/2012 03/11/2015 Surgical Scars 01/09/2012 03/11/2015 A-fib 10/08/2010 03/11/2015 Last Assessment & Plan: Dx. after [facility] 2010 Actinic keratosis 01/20/2007 03/11/2015 Other chronic dermatitis due to solar radiation 01/20/2007 01/09/2012 Scar condition and fibrosis of skin 01/20/2007 03/11/2015 SOLAR LENGINES///DYSCHROMIA OTHER 01/20/2007 01/09/2012 Other seborrheic keratosis 01/20/200701/08 NEVUS///BENIGN COLIN SKIN TRUNK 01/20/2007 NEVI///BENIGN COLIN SKIN FACE NEC 01/20/2007 01/09/2012 SEBACEOUS HYPERPLASIA///SEBACEOUS GLAND DIS NOS 01/20/2007 01/09/2012 Melanoma of skin, site unspecified 01/09/2012 Overview: Malignant melanoma Other and unspecified hyperlipidemia 03/11/2015 Unspecified gastritis and gastroduodenitis 03/11/2015 documented as of this encounter (statuses as of 09/03/2021) [facility] of Past illness Narrative* Problem Noted Date Resolved Date Gastroesophageal reflux disease 10/17/2020 10/17/2020 Hyperlipidemia 03/11/2015 08/16/2015 BMI 37.0-37.9, adult 03/11/2015 08/16/2015 Irriated//Inflamed Seborrheic Keratoses 12/02/19 14 03/11/2015 Other Seborrheic Keratoses 12/01/201303/11 Xerosis cutis 12/01/2013 03/11/2015 Cutaneous skin tags 12/01/2013 03/11/2015 Actinic skin damage 01/09/2012 03/11/2015 Solar Lentigines 01/09/2012 03/11/2015 Surgical Scars 01/09/2012 03/11/2015 A-fib 10/08/2010 03/11/2015 Last Assessment & Plan: Dx. after [facility] 2009 Actinic keratosis 01/20/2007 03/11/2015 Other chronic dermatitis due to solar radiation 01/20/2007 01/09/2012 Scar condition and fibrosis of skin 01/20/2007 03/11/2015 SOLAR LENGINES///DYSCHROMIA OTHER 01/20/2007 01/09/2012 Other seborrheic keratosis 01/20/200701/08 NEVUS///BENIGN COLIN SKIN TRUNK 01/20/2007 NEVI///BENIGN COLIN SKIN FACE NEC 01/20/2007 01/09/2012 SEBACEOUS HYPERPLASIA///SEBACEOUS GLAND DIS NOS 01/20/2007 01/09/2012 Melanoma of skin, site unspecified 01/09/2012 Overview: Malignant melanoma Other and unspecified hyperlipidemia 03/11/2015 Unspecified gastritis and gastroduodenitis 03/11/2015 documented as of this encounter (statuses as of 10/20/2021) [facility] Narrative* Problem Noted Date Resolved Date Gastroesophageal reflux disease 10/17/2020 10/17/2020 Hyperlipidemia 03/11/2015 08/16/2015 BMI 37.0-37.9, adult 03/11/2015 08/16/2015 Irriated//Inflamed Seborrheic Keratoses 12/02/19 14 03/11/2015 Other Seborrheic Keratoses 12/01/201303/11 Xerosis cutis 12/01/2013 03/11/2015 Cutaneous skin tags 12/01/2013 03/11/2015 Actinic skin damage 01/09/2012 03/11/2015 Solar Lentigines 01/09/2012 03/11/2015 Surgical Scars 01/09/2012 03/11/2015 A-fib 10/08/2010 03/11/2015 Last Assessment & Plan: Dx. after [facility] 2009 Actinic keratosis 01/20/2007 03/11/2015 Other chronic dermatitis due to solar radiation 01/20/2007 01/09/2012 Scar condition and fibrosis of skin 01/20/2007 03/11/2015 SOLAR LENGINES///DYSCHROMIA OTHER 01/20/2007 01/09/2012 Other seborrheic keratosis 01/20/200701/08 NEVUS///BENIGN COLIN SKIN TRUNK 01/20/2007 NEVI///BENIGN COLIN SKIN FACE NEC 01/20/2007 01/09/2012 SEBACEOUS HYPERPLASIA///SEBACEOUS GLAND DIS NOS 01/20/2007 01/09/2012 Melanoma of skin, site unspecified 01/09/2012 Overview: Malignant melanoma Other and unspecified hyperlipidemia 03/11/2015 Unspecified gastritis and gastroduodenitis 03/11/2015 documented as of this encounter (statuses as of 12/21/2021) [facility] Narrative* Problem Noted Date Resolved Date Gastroesophageal reflux disease 10/17/2020 10/17/2020 Hyperlipidemia 03/11/2015 08/16/2015 BMI 37.0-37.9, adult 03/11/2015 08/16/2015 Irriated//Inflamed Seborrheic Keratoses 12/02/19 14 03/11/2015 Other Seborrheic Keratoses 12/01/201303/11 Xerosis cutis 12/01/2013 03/11/2015 Cutaneous skin tags 12/01/2013 03/11/2015 Actinic skin damage 01/09/2012 03/11/2015 Solar Lentigines 01/09/2012 03/11/2015 Surgical Scars 01/09/2012 03/11/2015 A-fib 10/08/2010 03/11/2015 Last Assessment & Plan: Dx. after [facility] 2009 Actinic keratosis 01/20/2007 03/11/2015 Other chronic dermatitis due to solar radiation 01/20/2007 01/09/2012 Scar condition and fibrosis of skin 01/20/2007 03/11/2015 SOLAR LENGINES///DYSCHROMIA OTHER 01/20/2007 01/09/2012 Other seborrheic keratosis 01/20/200701/08 NEVUS///BENIGN COLIN SKIN TRUNK 01/20/2007 NEVI///BENIGN COLIN SKIN FACE NEC 01/20/2007 01/09/2012 SEBACEOUS HYPERPLASIA///SEBACEOUS GLAND DIS NOS 01/20/2007 01/09/2012 Melanoma of skin, site unspecified 01/09/2012 Overview: Malignant melanoma Other and unspecified hyperlipidemia 03/11/2015 Unspecified gastritis and gastroduodenitis 03/11/2015 documented as of this encounter (statuses as of 12/31/2021) [facility] Narrative* Problem Noted Date Resolved Date Gastroesophageal reflux disease 10/17/2020 10/17/2020 Hyperlipidemia 03/11/2015 08/16/2015 BMI 37.0-37.9, adult 03/11/2015 08/16/2015 Irriated//Inflamed Seborrheic Keratoses 12/02/19 14 03/11/2015 Other Seborrheic Keratoses 12/01/201303/11 Xerosis cutis 12/01/2013 03/11/2015 Cutaneous skin tags 12/01/2013 03/11/2015 Actinic skin damage 01/09/2012 03/11/2015 Solar Lentigines 01/09/2012 03/11/2015 Surgical Scars 01/09/2012 03/11/2015 A-fib 10/08/2010 03/11/2015 Last Assessment & Plan: Dx. after [facility] 2009 Actinic keratosis 01/20/2007 03/11/2015 Other chronic dermatitis due to solar radiation 01/20/2007 01/09/2012 Scar condition and fibrosis of skin 01/20/2007 03/11/2015 SOLAR LENGINES///DYSCHROMIA OTHER 01/20/2007 01/09/2012 Other seborrheic keratosis 01/20/200701/08 NEVUS///BENIGN COLIN SKIN TRUNK 01/20/2007 NEVI///BENIGN COLIN SKIN FACE NEC 01/20/2007 01/09/2012 SEBACEOUS HYPERPLASIA///SEBACEOUS GLAND DIS NOS 01/20/2007 01/09/2012 Melanoma of skin, site unspecified 01/09/2012 Overview: Malignant melanoma Other and unspecified hyperlipidemia 03/11/2015 Unspecified gastritis and gastroduodenitis 03/11/2015 documented as of this encounter (statuses as of 01/09/2022) [facility] Narrative* Problem Noted Date Resolved Date Gastroesophageal reflux disease 10/17/2020 10/17/2020 Hyperlipidemia 03/11/2015 08/16/2015 BMI 37.0-37.9, adult 03/11/2015 08/16/2015 Irriated//Inflamed Seborrheic Keratoses 12/02/19 14 03/11/2015 Other Seborrheic Keratoses 12/01/201303/11 Xerosis cutis 12/01/2013 03/11/2015 Cutaneous skin tags 12/01/2013 03/11/2015 Actinic skin damage 01/09/2012 03/11/2015 Solar Lentigines 01/09/2012 03/11/2015 Surgical Scars 01/09/2012 03/11/2015 A-fib 10/08/2010 03/11/2015 Last Assessment & Plan: Dx. after [facility] 2009 Actinic keratosis 01/20/2007 03/11/2015 Other chronic dermatitis due to solar radiation 01/20/2007 01/09/2012 Scar condition and fibrosis of skin 01/20/2007 03/11/2015 SOLAR LENGINES///DYSCHROMIA OTHER 01/20/2007 01/09/2012 Other seborrheic keratosis 01/20/200701/08 NEVUS///BENIGN COLIN SKIN TRUNK 01/20/2007 NEVI///BENIGN COLIN SKIN FACE NEC 01/20/2007 01/09/2012 SEBACEOUS HYPERPLASIA///SEBACEOUS GLAND DIS NOS 01/20/2007 01/09/2012 Melanoma of skin, site unspecified 01/09/2012 Overview: Malignant melanoma Other and unspecified hyperlipidemia 03/11/2015 Unspecified gastritis and gastroduodenitis 03/11/2015 documented as of this encounter (statuses as of 01/16/2022) [facility]ative* Problem Noted Date Resolved Date Gastroesophageal reflux disease 10/17/2020 10/17/2020 Hyperlipidemia 03/11/2015 08/16/2015 BMI 37.0-37.9, adult 03/11/2015 08/16/2015 Irriated//Inflamed Seborrheic Keratoses 12/02/19 14 03/11/2015 Other Seborrheic Keratoses 12/01/201303/11 Xerosis cutis 12/01/2013 03/11/2015 Cutaneous skin tags 12/01/2013 03/11/2015 Actinic skin damage 01/09/2012 03/11/2015 Solar Lentigines 01/09/2012 03/11/2015 Surgical Scars 01/09/2012 03/11/2015 A-fib 10/08/2010 03/11/2015 Last Assessment & Plan: Dx. after [facility] 2009 Actinic keratosis 01/20/2007 03/11/2015 Other chronic dermatitis due to solar radiation 01/20/2007 01/09/2012 Scar condition and fibrosis of skin 01/20/2007 03/11/2015 SOLAR LENGINES///DYSCHROMIA OTHER 01/20/2007 01/09/2012 Other seborrheic keratosis 01/20/200701/08 NEVUS///BENIGN COLIN SKIN TRUNK 01/20/2007 NEVI///BENIGN COLIN SKIN FACE NEC 01/20/2007 01/09/2012 SEBACEOUS HYPERPLASIA///SEBACEOUS GLAND DIS NOS 01/20/2007 01/09/2012 Melanoma of skin, site unspecified 01/09/2012 Overview: Malignant melanoma Other and unspecified hyperlipidemia 03/11/2015 Unspecified gastritis and gastroduodenitis 03/11/2015 documented as of this encounter (statuses as of 02/17/2022) [facility]arrative* Problem Noted Date Resolved Date Gastroesophageal reflux disease 10/17/2020 10/17/2020 Hyperlipidemia 03/11/2015 08/16/2015 BMI 37.0-37.9, adult 03/11/2015 08/16/2015 Irriated//Inflamed Seborrheic Keratoses 12/02/19 14 03/11/2015 Other Seborrheic Keratoses 12/01/201303/11 Xerosis cutis 12/01/2013 03/11/2015 Cutaneous skin tags 12/01/2013 03/11/2015 Actinic skin damage 01/09/2012 03/11/2015 Solar Lentigines 01/09/2012 03/11/2015 Surgical Scars 01/09/2012 03/11/2015 A-fib 10/08/2010 03/11/2015 Last Assessment & Plan: Dx. after [facility] 2009 Actinic keratosis 01/20/2007 03/11/2015 Other chronic dermatitis due to solar radiation 01/20/2007 01/09/2012 Scar condition and fibrosis of skin 01/20/2007 03/11/2015 SOLAR LENGINES///DYSCHROMIA OTHER 01/20/2007 01/09/2012 Other seborrheic keratosis 01/20/200701/08 NEVUS///BENIGN COLIN SKIN TRUNK 01/20/2007 NEVI///BENIGN COLIN SKIN FACE NEC 01/20/2007 01/09/2012 SEBACEOUS HYPERPLASIA///SEBACEOUS GLAND DIS NOS 01/20/2007 01/09/2012 Melanoma of skin, site unspecified 01/09/2012 Overview: Malignant melanoma Other and unspecified hyperlipidemia 03/11/2015 Unspecified gastritis and gastroduodenitis 03/11/2015 documented as of this encounter (statuses as of 04/21/2022) [facility]* Problem Noted Date Resolved Date Gastroesophageal reflux disease 10/17/2020 10/17/2020 Hyperlipidemia 03/11/2015 08/16/2015 BMI 37.0-37.9, adult 03/11/2015 08/16/2015 Irriated//Inflamed Seborrheic Keratoses 12/02/19 14 03/11/2015 Other Seborrheic Keratoses 12/01/201303/11 Xerosis cutis 12/01/2013 03/11/2015 Cutaneous skin tags 12/01/2013 03/11/2015 Actinic skin damage 01/09/2012 03/11/2015 Solar Lentigines 01/09/2012 03/11/2015 Surgical Scars 01/09/2012 03/11/2015 A-fib 10/08/2010 03/11/2015 Last Assessment & Plan: Dx. after [facility] 2009 Actinic keratosis 01/20/2007 03/11/2015 Other chronic dermatitis due to solar radiation 01/20/2007 01/09/2012 Scar condition and fibrosis of skin 01/20/2007 03/11/2015 SOLAR LENGINES///DYSCHROMIA OTHER 01/20/2007 01/09/2012 Other seborrheic keratosis 01/20/200701/08 NEVUS///BENIGN COLIN SKIN TRUNK 01/20/2007 NEVI///BENIGN COLIN SKIN FACE NEC 01/20/2007 01/09/2012 SEBACEOUS HYPERPLASIA///SEBACEOUS GLAND DIS NOS 01/20/2007 01/09/2012 Melanoma of skin, site unspecified 01/09/2012 Overview: Malignant melanoma Other and unspecified hyperlipidemia 03/11/2015 Unspecified gastritis and gastroduodenitis 03/11/2015 documented as of this encounter (statuses as of 05/03/2022) [facility]* Problem Noted Date Resolved Date Gastroesophageal reflux disease 10/17/2020 10/17/2020 Hyperlipidemia 03/11/2015 08/16/2015 BMI 37.0-37.9, adult 03/11/2015 08/16/2015 Irriated//Inflamed Seborrheic Keratoses 12/02/19 14 03/11/2015 Other Seborrheic Keratoses 12/01/201303/11 Xerosis cutis 12/01/2013 03/11/2015 Cutaneous skin tags 12/01/2013 03/11/2015 Actinic skin damage 01/09/2012 03/11/2015 Solar Lentigines 01/09/2012 03/11/2015 Surgical Scars 01/09/2012 03/11/2015 A-fib 10/08/2010 03/11/2015 Last Assessment & Plan: Dx. after [facility] 2009 Actinic keratosis 01/20/2007 03/11/2015 Other chronic dermatitis due to solar radiation 01/20/2007 01/09/2012 Scar condition and fibrosis of skin 01/20/2007 03/11/2015 SOLAR LENGINES///DYSCHROMIA OTHER 01/20/2007 01/09/2012 Other seborrheic keratosis 01/20/200701/08 NEVUS///BENIGN COLIN SKIN TRUNK 01/20/2007 NEVI///BENIGN COLIN SKIN FACE NEC 01/20/2007 01/09/2012 SEBACEOUS HYPERPLASIA///SEBACEOUS GLAND DIS NOS 01/20/2007 01/09/2012 Melanoma of skin, site unspecified 01/09/2012 Overview: Malignant melanoma Other and unspecified hyperlipidemia 03/11/2015 Unspecified gastritis and gastroduodenitis 03/11/2015 documented as of this encounter (statuses as of 06/02/2022) [facility]* Problem Noted Date Resolved Date Gastroesophageal reflux disease 10/17/2020 10/17/2020 Hyperlipidemia 03/11/2015 08/16/2015 BMI 37.0-37.9, adult 03/11/2015 08/16/2015 Irriated//Inflamed Seborrheic Keratoses 12/02/19 14 03/11/2015 Other Seborrheic Keratoses 12/01/201303/11 Xerosis cutis 12/01/2013 03/11/2015 Cutaneous skin tags 12/01/2013 03/11/2015 Actinic skin damage 01/09/2012 03/11/2015 Solar Lentigines 01/09/2012 03/11/2015 Surgical Scars 01/09/2012 03/11/2015 A-fib 10/08/2010 03/11/2015 Last Assessment & Plan: Dx. after [facility] 2009 Actinic keratosis 01/20/2007 03/11/2015 Other chronic dermatitis due to solar radiation 01/20/2007 01/09/2012 Scar condition and fibrosis of skin 01/20/2007 03/11/2015 SOLAR LENGINES///DYSCHROMIA OTHER 01/20/2007 01/09/2012 Other seborrheic keratosis 01/20/200701/08 NEVUS///BENIGN COLIN SKIN TRUNK 01/20/2007 NEVI///BENIGN COLIN SKIN FACE NEC 01/20/2007 01/09/2012 SEBACEOUS HYPERPLASIA///SEBACEOUS GLAND DIS NOS 01/20/2007 01/09/2012 Melanoma of skin, site unspecified 01/09/2012 Overview: Malignant melanoma Other and unspecified hyperlipidemia 03/11/2015 Unspecified gastritis and gastroduodenitis 03/11/2015 documented as of this encounter (statuses as of 06/04/2022) [facility]* Problem Noted Date Resolved Date Gastroesophageal reflux disease 10/17/2020 10/17/2020 Hyperlipidemia 03/11/2015 08/16/2015 BMI 37.0-37.9, adult 03/11/2015 08/16/2015 Irriated//Inflamed Seborrheic Keratoses 12/02/19 14 03/11/2015 Other Seborrheic Keratoses 12/01/201303/11 Xerosis cutis 12/01/2013 03/11/2015 Cutaneous skin tags 12/01/2013 03/11/2015 Actinic skin damage 01/09/2012 03/11/2015 Solar Lentigines 01/09/2012 03/11/2015 Surgical Scars 01/09/2012 03/11/2015 A-fib 10/08/2010 03/11/2015 Last Assessment & Plan: Dx. after [facility] 2009 Actinic keratosis 01/20/2007 03/11/2015 Other chronic dermatitis due to solar radiation 01/20/2007 01/09/2012 Scar condition and fibrosis of skin 01/20/2007 03/11/2015 SOLAR LENGINES///DYSCHROMIA OTHER 01/20/2007 01/09/2012 Other seborrheic keratosis 01/20/200701/08 NEVUS///BENIGN COLIN SKIN TRUNK 01/20/2007 NEVI///BENIGN COLIN SKIN FACE NEC 01/20/2007 01/09/2012 SEBACEOUS HYPERPLASIA///SEBACEOUS GLAND DIS NOS 01/20/2007 01/09/2012 Melanoma of skin, site unspecified 01/09/2012 Overview: Malignant melanoma Other and unspecified hyperlipidemia 03/11/2015 Unspecified gastritis and gastroduodenitis 03/11/2015 documented as of this encounter (statuses as of 06/08/2022) [facility]* Problem Noted Date Resolved Date Gastroesophageal reflux disease 10/17/2020 10/17/2020 Hyperlipidemia 03/11/2015 08/16/2015 BMI 37.0-37.9, adult 03/11/2015 08/16/2015 Irriated//Inflamed Seborrheic Keratoses 12/02/19 14 03/11/2015 Other Seborrheic Keratoses 12/01/201303/11 Xerosis cutis 12/01/2013 03/11/2015 Cutaneous skin tags 12/01/2013 03/11/2015 Actinic skin damage 01/09/2012 03/11/2015 Solar Lentigines 01/09/2012 03/11/2015 Surgical Scars 01/09/2012 03/11/2015 A-fib 10/08/2010 03/11/2015 Last Assessment & Plan: Dx. after [facility] 2009 Actinic keratosis 01/20/2007 03/11/2015 Other chronic dermatitis due to solar radiation 01/20/2007 01/09/2012 Scar condition and fibrosis of skin 01/20/2007 03/11/2015 SOLAR LENGINES///DYSCHROMIA OTHER 01/20/2007 01/09/2012 Other seborrheic keratosis 01/20/200701/08 NEVUS///BENIGN COLIN SKIN TRUNK 01/20/2007 NEVI///BENIGN COLIN SKIN FACE NEC 01/20/2007 01/09/2012 SEBACEOUS HYPERPLASIA///SEBACEOUS GLAND DIS NOS 01/20/2007 01/09/2012 Melanoma of skin, site unspecified 01/09/2012 Overview: Malignant melanoma Other and unspecified hyperlipidemia 03/11/2015 Unspecified gastritis and gastroduodenitis 03/11/2015 documented as of this encounter (statuses as of 06/10/2022) [facility]* Problem Noted Date Resolved Date Gastroesophageal reflux disease 10/17/2020 10/17/2020 Hyperlipidemia 03/11/2015 08/16/2015 BMI 37.0-37.9, adult 03/11/2015 08/16/2015 Irriated//Inflamed Seborrheic Keratoses 12/02/19 14 03/11/2015 Other Seborrheic Keratoses 12/01/201303/11 Xerosis cutis 12/01/2013 03/11/2015 Cutaneous skin tags 12/01/2013 03/11/2015 Actinic skin damage 01/09/2012 03/11/2015 Solar Lentigines 01/09/2012 03/11/2015 Surgical Scars 01/09/2012 03/11/2015 A-fib 10/08/2010 03/11/2015 Last Assessment & Plan: Dx. after [facility] 2010 Actinic keratosis 01/20/2007 03/11/2015 Other chronic dermatitis due to solar radiation 01/20/2007 01/09/2012 Scar condition and fibrosis of skin 01/20/2007 03/11/2015 SOLAR LENGINES///DYSCHROMIA OTHER 01/20/2007 01/09/2012 Other seborrheic keratosis 01/20/200701/08 NEVUS///BENIGN COLIN SKIN TRUNK 01/20/2007 NEVI///BENIGN COLIN SKIN FACE NEC 01/20/2007 01/09/2012 SEBACEOUS HYPERPLASIA///SEBACEOUS GLAND DIS NOS 01/20/2007 01/09/2012 Melanoma of skin, site unspecified 01/09/2012 Overview: Malignant melanoma Other and unspecified hyperlipidemia 03/11/2015 Unspecified gastritis and gastroduodenitis 03/11/2015 documented as of this encounter (statuses as of 06/23/2022) [facility]* Problem Noted Date Resolved Date Gastroesophageal reflux disease 10/17/2020 10/17/2020 Hyperlipidemia 03/11/2015 08/16/2015 BMI 37.0-37.9, adult 03/11/2015 08/16/2015 Irriated//Inflamed Seborrheic Keratoses 12/02/19 14 03/11/2015 Other Seborrheic Keratoses 12/01/201303/11 Xerosis cutis 12/01/2013 03/11/2015 Cutaneous skin tags 12/01/2013 03/11/2015 Actinic skin damage 01/09/2012 03/11/2015 Solar Lentigines 01/09/2012 03/11/2015 Surgical Scars 01/09/2012 03/11/2015 A-fib 10/08/2010 03/11/2015 Last Assessment & Plan: Dx. after [facility] 2009 Actinic keratosis 01/20/2007 03/11/2015 Other chronic dermatitis due to solar radiation 01/20/2007 01/09/2012 Scar condition and fibrosis of skin 01/20/2007 03/11/2015 SOLAR LENGINES///DYSCHROMIA OTHER 01/20/2007 01/09/2012 Other seborrheic keratosis 01/20/200701/08 NEVUS///BENIGN COLIN SKIN TRUNK 01/20/2007 NEVI///BENIGN COLIN SKIN FACE NEC 01/20/2007 01/09/2012 SEBACEOUS HYPERPLASIA///SEBACEOUS GLAND DIS NOS 01/20/2007 01/09/2012 Melanoma of skin, site unspecified 01/09/2012 Overview: Malignant melanoma Other and unspecified hyperlipidemia 03/11/2015 Unspecified gastritis and gastroduodenitis 03/11/2015 documented as of this encounter (statuses as of 06/30/2022) [facility] Narrative* Problem Noted Date Resolved Date Gastroesophageal reflux disease 10/17/2020 10/17/2020 Hyperlipidemia 03/11/2015 08/16/2015 BMI 37.0-37.9, adult 03/11/2015 08/16/2015 Irriated//Inflamed Seborrheic Keratoses 12/02/19 14 03/11/2015 Other Seborrheic Keratoses 12/01/201303/11 Xerosis cutis 12/01/2013 03/11/2015 Cutaneous skin tags 12/01/2013 03/11/2015 Actinic skin damage 01/09/2012 03/11/2015 Solar Lentigines 01/09/2012 03/11/2015 Surgical Scars 01/09/2012 03/11/2015 A-fib 10/08/2010 03/11/2015 Last Assessment & Plan: Dx. after [facility] 2009 Actinic keratosis 01/20/2007 03/11/2015 Other chronic dermatitis due to solar radiation 01/20/2007 01/09/2012 Scar condition and fibrosis of skin 01/20/2007 03/11/2015 SOLAR LENGINES///DYSCHROMIA OTHER 01/20/2007 01/09/2012 Other seborrheic keratosis 01/20/200701/08 NEVUS///BENIGN COLIN SKIN TRUNK 01/20/2007 NEVI///BENIGN COLIN SKIN FACE NEC 01/20/2007 01/09/2012 SEBACEOUS HYPERPLASIA///SEBACEOUS GLAND DIS NOS 01/20/2007 01/09/2012 Melanoma of skin, site unspecified 01/09/2012 Overview: Malignant melanoma Other and unspecified hyperlipidemia 03/11/2015 Unspecified gastritis and gastroduodenitis 03/11/2015 documented as of this encounter (statuses as of 10/01/2022) [facility] History of Past illness Narrative* Problem Noted Date Diagnosed Date Resolved Date Gastroesophageal reflux disease 10/17/2020 10/17/2020 Hyperlipidemia 03/11/2015 08/16/2015 BMI 37.0-37.9, adult 03/11/2015 016 Irriated//Inflamed Seborrheic Keratoses 12/01/2013 03/11/2015 Other Seborrheic Keratoses 12/01/2013 1 05/11/2014 Xerosis cutis 12/01/2013 03/11/2015 Cutaneous skin tags 12/01/2013 03/11/20 15 Actinic skin damage 01/09/2012 03/11/20 15 Solar Lentigines 01/09/2012 03/11/2015 Surgical Scars 01/09/2012 03/11/2015 A-fib 10/08/2010 03/11/2015 Last Assessment & Plan: Dx. after [facility] 2009 Actinic keratosis 01/20/2007 03/11/2015 Other chronic dermatitis due to solar radiation 01/20/2007 01/09/2012 Scar condition and fibrosis of skin 01/20/2007 03/11/2015 SOLAR LENGINES///DYSCHROMIA OTHER 01/20/2007 01/09/2012 Other seborrheic keratosis 01/20/2007 0 01/09/2012 NEVUS///BENIGN COLIN SKIN TRUNK 01/20/2007 01/09/2012 NEVI///BENIGN COLIN SKIN FACE NEC 01/20/2007 01/09/2012 SEBACEOUS HYPERPLASIA///SEBA CEOUS GLAND DIS NOS 01/20/2007 01/09/2012 Melanoma of skin, site unspecified 01/09/2012 Overview: Malignant melanoma Other and unspecified hyperlipidemia 03/11/2015 Unspecified gastritis and gastroduodenitis 03/11/2015 documented as of this encounter (statuses as of 12/23/2022) [facility] History of Past illness Narrative* Problem Noted Date Diagnosed Date Resolved Date Gastroesophageal reflux disease 10/17/2020 10/17/2020 Hyperlipidemia 03/11/2015 08/16/2015 BMI 37.0-37.9, adult 03/11/2015 016 Irriated//Inflamed Seborrheic Keratoses 12/01/2013 03/11/2015 Other Seborrheic Keratoses 12/01/2013 1 05/11/2014 Xerosis cutis 12/01/2013 03/11/2015 Cutaneous skin tags 12/01/2013 03/11/20 15 Actinic skin damage 01/09/2012 03/11/20 15 Solar Lentigines 01/09/2012 03/11/2015 Surgical Scars 01/09/2012 03/11/2015 A-fib 10/08/2010 03/11/2015 Last Assessment & Plan: Dx. after [facility] 2009 Actinic keratosis 01/20/2007 03/11/2015 Other chronic dermatitis due to solar radiation 01/20/2007 01/09/2012 Scar condition and fibrosis of skin 01/20/2007 03/11/2015 SOLAR LENGINES///DYSCHROMIA OTHER 01/20/2007 01/09/2012 Other seborrheic keratosis 01/20/2007 0 01/09/2012 NEVUS///BENIGN COLIN SKIN TRUNK 01/20/2007 01/09/2012 NEVI///BENIGN COLIN SKIN FACE NEC 01/20/2007 01/09/2012 SEBACEOUS HYPERPLASIA///SEBA CEOUS GLAND DIS NOS 01/20/2007 01/09/2012 Melanoma of skin, site unspecified 01/09/2012 Overview: Malignant melanoma Other and unspecified hyperlipidemia 03/11/2015 Unspecified gastritis and gastroduodenitis 03/11/2015 documented as of this encounter (statuses as of 12/29/2022) [facility] History of Past illness Narrative* Problem Noted Date Diagnosed Date Resolved Date Gastroesophageal reflux disease 10/17/2020 10/17/2020 Hyperlipidemia 03/11/2015 08/16/2015 BMI 37.0-37.9, adult 03/11/2015 016 Irriated//Inflamed Seborrheic Keratoses 12/01/2013 03/11/2015 Other Seborrheic Keratoses 12/01/2013 1 05/11/2014 Xerosis cutis 12/01/2013 03/11/2015 Cutaneous skin tags 12/01/2013 03/11/20 15 Actinic skin damage 01/09/2012 03/11/20 15 Solar Lentigines 01/09/2012 03/11/2015 Surgical Scars 01/09/2012 03/11/2015 A-fib 10/08/2010 03/11/2015 Last Assessment & Plan: Dx. after [facility] 2009 Actinic keratosis 01/20/2007 03/11/2015 Other chronic dermatitis due to solar radiation 01/20/2007 01/09/2012 Scar condition and fibrosis of skin 01/20/2007 03/11/2015 SOLAR LENGINES///DYSCHROMIA OTHER 01/20/2007 01/09/2012 Other seborrheic keratosis 01/20/2007 0 01/09/2012 NEVUS///BENIGN COLIN SKIN TRUNK 01/20/2007 01/09/2012 NEVI///BENIGN COLIN SKIN FACE NEC 01/20/2007 01/09/2012 SEBACEOUS HYPERPLASIA///SEBA CEOUS GLAND DIS NOS 01/20/2007 01/09/2012 Melanoma of skin, site unspecified 01/09/2012 Overview: Malignant melanoma Other and unspecified hyperlipidemia 03/11/2015 Unspecified gastritis and gastroduodenitis 03/11/2015 documented as of this encounter (statuses as of 12/31/2022) [facility] History of Past illness Narrative* Problem Noted Date Diagnosed Date Resolved Date Gastroesophageal reflux disease 10/17/2020 10/17/2020 Hyperlipidemia 03/11/2015 08/16/2015 BMI 37.0-37.9, adult 03/11/2015 016 Irriated//Inflamed Seborrheic Keratoses 12/01/2013 03/11/2015 Other Seborrheic Keratoses 12/01/2013 1 05/11/2014 Xerosis cutis 12/01/2013 03/11/2015 Cutaneous skin tags 12/01/2013 03/11/20 15 Actinic skin damage 01/09/2012 03/11/20 15 Solar Lentigines 01/09/2012 03/11/2015 Surgical Scars 01/09/2012 03/11/2015 A-fib 10/08/2010 03/11/2015 Last Assessment & Plan: Dx. after [facility] 2009 Actinic keratosis 01/20/2007 03/11/2015 Other chronic dermatitis due to solar radiation 01/20/2007 01/09/2012 Scar condition and fibrosis of skin 01/20/2007 03/11/2015 SOLAR LENGINES///DYSCHROMIA OTHER 01/20/2007 01/09/2012 Other seborrheic keratosis 01/20/2007 0 01/09/2012 NEVUS///BENIGN COLIN SKIN TRUNK 01/20/2007 01/09/2012 NEVI///BENIGN COLIN SKIN FACE NEC 01/20/2007 01/09/2012 SEBACEOUS HYPERPLASIA///SEBA CEOUS GLAND DIS NOS 01/20/2007 01/09/2012 Melanoma of skin, site unspecified 01/09/2012 Overview: Malignant melanoma Other and unspecified hyperlipidemia 03/11/2015 Unspecified gastritis and gastroduodenitis 03/11/2015 documented as of this encounter (statuses as of 01/11/2023) [facility] History of Past illness Narrative* Problem Noted Date Diagnosed Date Resolved Date Gastroesophageal reflux disease 10/17/2020 10/17/2020 Hyperlipidemia 03/11/2015 08/16/2015 BMI 37.0-37.9, adult 03/11/2015 016 Irriated//Inflamed Seborrheic Keratoses 12/01/2013 03/11/2015 Other Seborrheic Keratoses 12/01/2013 1 05/11/2014 Xerosis cutis 12/01/2013 03/11/2015 Cutaneous skin tags 12/01/2013 03/11/20 15 Actinic skin damage 01/09/2012 03/11/20 15 Solar Lentigines 01/09/2012 03/11/2015 Surgical Scars 01/09/2012 03/11/2015 A-fib 10/08/2010 03/11/2015 Last Assessment & Plan: Dx. after [facility] 2010 Actinic keratosis 01/20/2007 03/11/2015 Other chronic dermatitis due to solar radiation 01/20/2007 01/09/2012 Scar condition and fibrosis of skin 01/20/2007 03/11/2015 SOLAR LENGINES///DYSCHROMIA OTHER 01/20/2007 01/09/2012 Other seborrheic keratosis 01/20/2007 0 01/09/2012 NEVUS///BENIGN COLIN SKIN TRUNK 01/20/2007 01/09/2012 NEVI///BENIGN COLIN SKIN FACE NEC 01/20/2007 01/09/2012 SEBACEOUS HYPERPLASIA///SEBA CEOUS GLAND DIS NOS 01/20/2007 01/09/2012 Melanoma of skin, site unspecified 01/09/2012 Overview: Malignant melanoma Other and unspecified hyperlipidemia 03/11/2015 Unspecified gastritis and gastroduodenitis 03/11/2015 documented as of this encounter (statuses as of 03/07/2023) [facility] History of Past illness Narrative* Problem Noted Date Diagnosed Date Resolved Date Gastroesophageal reflux disease 10/17/2020 10/17/2020 Hyperlipidemia 03/11/2015 08/16/2015 BMI 37.0-37.9, adult 03/11/2015 016 Irriated//Inflamed Seborrheic Keratoses 12/01/2013 03/11/2015 Other Seborrheic Keratoses 12/01/2013 1 05/11/2014 Xerosis cutis 12/01/2013 03/11/2015 Cutaneous skin tags 12/01/2013 03/11/20 15 Actinic skin damage 01/09/2012 03/11/20 15 Solar Lentigines 01/09/2012 03/11/2015 Surgical Scars 01/09/2012 03/11/2015 A-fib 10/08/2010 03/11/2015 Last Assessment & Plan: Dx. after [facility] 2009 Actinic keratosis 01/20/2007 03/11/2015 Other chronic dermatitis due to solar radiation 01/20/2007 01/09/2012 Scar condition and fibrosis of skin 01/20/2007 03/11/2015 SOLAR LENGINES///DYSCHROMIA OTHER 01/20/2007 01/09/2012 Other seborrheic keratosis 01/20/2007 0 01/09/2012 NEVUS///BENIGN COLNI SKIN TRUNK 01/20/2007 01/09/2012 NEVI///BENIGN COLIN SKIN FACE NEC 01/20/2007 01/09/2012 SEBACEOUS HYPERPLASIA///SEBA CEOUS GLAND DIS NOS 01/20/2007 01/09/2012 Melanoma of skin, site unspecified 01/09/2012 Overview: Malignant melanoma Other and unspecified hyperlipidemia 03/11/2015 Unspecified gastritis and gastroduodenitis 03/11/2015 documented as of this encounter (statuses as of 04/02/2023) [facility] History of Past illness Narrative* Problem Noted Date Diagnosed Date Resolved Date Gastroesophageal reflux disease 10/17/2020 10/17/2020 Hyperlipidemia 03/11/2015 08/16/2015 BMI 37.0-37.9, adult 03/11/2015 016 Irriated//Inflamed Seborrheic Keratoses 12/01/2013 03/11/2015 Other Seborrheic Keratoses 12/01/2013 1 05/11/2014 Xerosis cutis 12/01/2013 03/11/2015 Cutaneous skin tags 12/01/2013 03/11/20 15 Actinic skin damage 01/09/2012 03/11/20 15 Solar Lentigines 01/09/2012 03/11/2015 Surgical Scars 01/09/2012 03/11/2015 A-fib 10/08/2010 03/11/2015 Last Assessment & Plan: Dx. after [facility] 2009 Actinic keratosis 01/20/2007 03/11/2015 Other chronic dermatitis due to solar radiation 01/20/2007 01/09/2012 Scar condition and fibrosis of skin 01/20/2007 03/11/2015 SOLAR LENGINES///DYSCHROMIA OTHER 01/20/2007 01/09/2012 Other seborrheic keratosis 01/20/2007 0 01/09/2012 NEVUS///BENIGN COLIN SKIN TRUNK 01/20/2007 01/09/2012 NEVI///BENIGN COLIN SKIN FACE NEC 01/20/2007 01/09/2012 SEBACEOUS HYPERPLASIA///SEBA CEOUS GLAND DIS NOS 01/20/2007 01/09/2012 Melanoma of skin, site unspecified 01/09/2012 Overview: Malignant melanoma Other and unspecified hyperlipidemia 03/11/2015 Unspecified gastritis and gastroduodenitis 03/11/2015 documented as of this encounter (statuses as of 04/08/2023) [facility] Diagnosis Urinary frequency- Primary Glucosuria Glycosuria [facility] Diagnosis Gastroesophageal reflux disease with esophagitis without hemorrhage- Primary [facility] Diagnosis Gastroesophageal reflux disease, unspecified whether esophagitis present- Primary Gastroesophageal reflux disease with esophagitis without hemorrhage [facility] Diagnosis Gastroesophageal reflux disease with esophagitis without hemorrhage- Primary [facility] Diagnosis Dysthymia- Primary Dysthymic disorder Need for influenza vaccination Need for prophylactic vaccination and inoculation against influenza Arthritis, multiple joint involvement Unspecified arthropathy, multiple sites IFG (impaired fasting glucose) Impaired fasting glucose Obesity, Class II, BMI 35-39.9 Obesity, unspecified Fatigue, unspecified type Iron deficiency Iron deficiency anemia, unspecified [facility] Diagnosis Dysthymia- Primary Dysthymic disorder Situational insomnia Transient disorder of initiating or maintaining sleep Arthritis, multiple joint involvement Unspecified arthropathy, multiple sites IFG (impaired fasting glucose) Impaired fasting glucose Obesity, Class II, BMI 35-39.9 Obesity, unspecified Fatigue, unspecified type Iron deficiency Iron deficiency anemia, unspecified [facility] Diagnosis Fatigue, unspecified type- Primary SOB (shortness of breath) on exertion Shortness of breath Hyperlipidemia, unspecified hyperlipidemia type Obesity, Class II, BMI 35-39.9 Obesity, unspecified IFG (impaired fasting glucose) Impaired fasting glucose Iron deficiency anemia, unspecified iron deficiency anemia type Vitamin D deficiency Unspecified vitamin D deficiency Bilateral leg edema Edema Primary hypertension Unspecified essential hypertension [facility] Diagnosis Iron deficiency- Primary Iron deficiency anemia, unspecified Fatigue, unspecified type SOB (shortness of breath) on exertion Shortness of breath IFG (impaired fasting glucose) Impaired fasting glucose Vitamin D deficiency Unspecified vitamin D deficiency Vitamin B12 deficiency Other B-complex deficiencies Hyperlipidemia, unspecified hyperlipidemia type Primary hypertension Unspecified essential hypertension Obesity, Class II, BMI 35-39.9 Obesity, unspecified Arthritis, multiple joint involvement Unspecified arthropathy, multiple sites [facility] Diagnosis Situational insomnia Transient disorder of initiating or maintaining sleep Situational mixed anxiety and depressive disorder Adjustment disorder with mixed anxiety and depressed mood [facility] Diagnosis TIA (transient ischemic attack) Unspecified transient cerebral ischemia Hyperlipidemia, unspecified hyperlipidemia type Anxiety Anxiety state, unspecified [facility] Diagnosis WELCH (dyspnea on exertion)- Primary Other dyspnea and respiratory abnormality Fatigue, unspecified type Obesity, Class II, BMI 35-39.9 Obesity, unspecified IFG (impaired fasting glucose) Impaired fasting glucose Vitamin B12 deficiency Other B-complex deficiencies Primary hypertension Unspecified essential hypertension Disorder of carotid artery (HCC) Unspecified disorders of arteries and arterioles [facility] Diagnosis WELCH (dyspnea on exertion) Other dyspnea and respiratory abnormality [facility] Diagnosis Obstructive lung disease (HCC)- Primary Chronic airway obstruction, not elsewhere classified WELCH (dyspnea on exertion) Other dyspnea and respiratory abnormality [facility] Diagnosis Fatigue, unspecified type- Primary [facility] Diagnosis WELCH (dyspnea on exertion) Other dyspnea and respiratory abnormality [facility] Diagnosis Subclinical hypothyroidism- Primary Other specified acquired hypothyroidism Need for influenza vaccination Need for prophylactic vaccination and inoculation against influenza Need for COVID-19 vaccine Thyroid disease Unspecified disorder of thyroid Situational mixed anxiety and depressive disorder Adjustment disorder with mixed anxiety and depressed mood Fatigue, unspecified type Obstructive lung disease (HCC) Chronic airway obstruction, not elsewhere classified IFG (impaired fasting glucose) Impaired fasting glucose Vitamin B12 deficiency Other B-complex deficiencies Primary hypertension Unspecified essential hypertension Vitamin D deficiency Unspecified vitamin D deficiency Paroxysmal atrial fibrillation (HCC) Atrial fibrillation Arthritis, multiple joint involvement Unspecified arthropathy, multiple sites Malignant melanoma of skin of trunk, 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, except scrotum [facility] Diagnosis Diarrhea, unspecified type- Primary [facility] Diagnosis Hospital discharge follow-up- Primary Other follow-up examination Anxiety Anxiety state, unspecified TIA (transient ischemic attack) Unspecified transient cerebral ischemia Hyperlipidemia, unspecified hyperlipidemia type Sleep disturbances Sleep disturbance, unspecified Community acquired pneumonia, unspecified laterality On supplemental oxygen therapy Dependence on supplemental oxygen Subclinical hypothyroidism Other specified acquired hypothyroidism IFG (impaired fasting glucose) Impaired fasting glucose Primary hypertension Unspecified essential hypertension [facility] Diagnosis Situational insomnia Transient disorder of initiating or maintaining sleep Situational mixed anxiety and depressive disorder Adjustment disorder with mixed anxiety and depressed mood [facility] Chronic respiratory failure with hypoxia (HCC)- Primary Chronic respiratory failure Sleep disturbances Sleep disturbance, unspecified [facility] Diagnosis Weakness- Primary Other malaise and fatigue Difficulty walking Difficulty in walking Imbalance Abnormality of gait [facility] Diagnosis Weakness- Primary Other malaise and fatigue Difficulty walking Difficulty in walking Imbalance Abnormality of gait [facility] Diagnosis Weakness- Primary Other malaise and fatigue Difficulty walking Difficulty in walking Imbalance Abnormality of gait [facility] Acute bronchitis, unspecified organism- Primary Thyroid disease Unspecified disorder of thyroid Rhonchi Abnormal chest sounds Obstructive lung disease (HCC) Chronic airway obstruction, not elsewhere classified Paroxysmal atrial fibrillation (HCC) Atrial fibrillation Disorder of carotid artery (HCC) Unspecified disorders of arteries and arterioles Malignant melanoma of skin of trunk, 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, except scrotum [facility] Diagnosis Weakness- Primary Other malaise and fatigue [facility] Diagnosis Weakness- Primary Other malaise and fatigue Difficulty walking Difficulty in walking Imbalance Abnormality of gait [facility] Diagnosis Arthritis, multiple joint involvement- Primary Unspecified arthropathy, multiple sites Spinal stenosis of lumbar region without neurogenic claudication Spinal stenosis, lumbar region, without neurogenic claudication [facility] Diagnosis Weakness- Primary Other malaise and fatigue Imbalance Abnormality of gait Difficulty walking Difficulty in walking [facility] Diagnosis Weakness- Primary Other malaise and fatigue Imbalance Abnormality of gait [facility] Diagnosis Weakness- Primary Other malaise and fatigue Imbalance Abnormality of gait Difficulty walking Difficulty in walking [facility] Diagnosis Weakness- Primary Other malaise and fatigue Imbalance Abnormality of gait Difficulty walking Difficulty in walking [facility] Diagnosis Weakness- Primary Other malaise and fatigue Imbalance Abnormality of gait [facility] Diagnosis Difficulty walking- Primary Difficulty in walking Imbalance Abnormality of gait Weakness Other malaise and fatigue [facility] Diagnosis Arthritis, multiple joint involvement- Primary Unspecified arthropathy, multiple sites Anxiety Anxiety state, unspecified Need for influenza vaccination Need for prophylactic vaccination and inoculation against influenza Epigastric abdominal pain Abdominal pain, epigastric Obstructive lung disease (HCC) Chronic airway obstruction, not elsewhere classified Gait abnormality Abnormality of gait Imbalance Abnormality of gait [facility] Diagnosis Difficulty walking- Primary Difficulty in walking Imbalance Abnormality of gait Weakness Other malaise and fatigue [facility] Diagnosis Epigastric abdominal pain- Primary Abdominal pain, epigastric Pulmonary hypertension (HCC) Other chronic pulmonary heart diseases [facility] Diagnosis Difficulty walking- Primary Difficulty in walking Imbalance Abnormality of gait Weakness Other malaise and fatigue [facility] Diagnosis Difficulty walking- Primary Difficulty in walking Imbalance Abnormality of gait Weakness Other malaise and fatigue [facility] Diagnosis Difficulty walking- Primary Difficulty in walking Imbalance Abnormality of gait Weakness Other malaise and fatigue [facility] Diagnosis Pre-operative examination- Primary Preoperative examination, unspecified JOSE on CPAP Obstructive sleep apnea (adult) (pediatric) Obstructive lung disease (HCC) Chronic airway obstruction, not elsewhere classified Primary hypertension Unspecified essential hypertension Hyperlipidemia, unspecified hyperlipidemia type 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 Paroxysmal atrial fibrillation (HCC) Atrial fibrillation Pulmonary hypertension (HCC) Other chronic pulmonary heart diseases TIA (transient ischemic attack) Unspecified transient cerebral ischemia Disorder of carotid artery (HCC) Unspecified disorders of arteries and arterioles Situational mixed anxiety and depressive disorder Adjustment disorder with mixed anxiety and depressed mood Subclinical hypothyroidism Other specified acquired hypothyroidism Hypokalemia Hypopotassemia Iron deficiency anemia, unspecified iron deficiency anemia type Personal history of malignant melanoma of skin IFG (impaired fasting glucose) Impaired fasting glucose Arthritis, multiple joint involvement Unspecified arthropathy, multiple sites BMI 38.0-38.9,adult Body Mass Index 38.0-38.9, adult Gastroesophageal reflux disease, unspecified whether esophagitis present Gastroesophageal reflux disease, unspecified whether esophagitis present- Primary Epigastric abdominal pain Abdominal pain, epigastric Pulmonary hypertension (HCC) Other chronic pulmonary heart diseases * Assessment & Plan Note - Mary Foster APRN.CNP - 03/31/2024 6:43 AM EST Associated Problem(s): GERD (gastroesophageal reflux disease) Assessment: otc rx as needed * Assessment & Plan Note - Mary Foster APRN.CNP - 03/31/2024 6:42 AM EST Associated Problem(s): BMI 38.0-38.9,adult Assessment: Body mass index is 38.27 kg/m . 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 * Assessment & Plan Note - Mary Foster APRN.CNP - 03/31/2024 6:41 AM EST Associated Problem(s): IFG (impaired fasting glucose) Assessment: Hemoglobin A1C (%) Date Value 11/25/2023 5.0 01/16/2021 5.3 * Assessment & Plan Note - Mary Foster APRN.CNP - 03/31/2024 6:41 AM EST Associated Problem(s): Personal history of malignant melanoma of skin Assessment: s/p excision * Assessment & Plan Note - Mary Foster APRN.CNP - 03/31/2024 6:41 AM EST Associated Problem(s): Iron deficiency anemia Assessment: hx Hemoglobin (g/dL) Date Value 11/25/2023 13.7 10/29/2020 13.6 Hematocrit (%) Date Value 11/25/2023 43.0 10/29/2020 41.0 WBC (k/uL) Date Value 11/25/2023 7.65 10/29/2020 6.43 * Assessment & Plan Note - Mary Foster APRN.CNP - 03/31/2024 6:40 AM EST Associated Problem(s): Hypokalemia Assessment: taking diuretics Potassium Date Value Ref Range Status 11/25/2023 3.8 3.7 - 5.1 mmol/L Final 03/31/2023 3.3 (L) 3.7 - 5.1 mmol/L Final 12/15/2022 3.8 3.7 - 5.1 mmol/L Final * Assessment & Plan Note - Mary Foster APRN.CNP - 03/31/2024 6:40 AM EST Associated Problem(s): Subclinical hypothyroidism Assessment: stable on rx * Assessment & Plan Note - Mary Foster APRN.CNP - 03/31/2024 6:39 AM EST Associated Problem(s): Situational mixed anxiety and depressive disorder Assessment: stable on rx per pt * Assessment & Plan Note - Mary Foster APRN.CNP - 03/31/2024 6:39 AM EST Associated Problem(s): Disorder of carotid artery (HCC) Assessment: following cardiology, only documentation found in epic states 0-29% bilaterally from 2010 * Assessment & Plan Note - Mary Foster APRN.CNP - 03/31/2024 6:37 AM EST Associated Problem(s): TIA (transient ischemic attack) Assessment: hx 2019, daily ASA * Assessment & Plan Note - Mary Foster APRN.CNP - 03/31/2024 6:35 AM EST Associated Problem(s): Pulmonary hypertension (HCC) Assessment: moderate, RSVP 66mmHg 02/02/24 * Assessment & Plan Note - Mary Foster APRN.CNP - 03/31/2024 6:34 AM EST Associated Problem(s): A-fib (HCC) Assessment: paroxymal, following WHG, daily ASA therapy * Assessment & Plan Note - Mary Foster APRN.CNP - 03/31/2024 6:33 AM EST Associated Problem(s): 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 Last interrogation scanned into chart from 01/28/24 * Assessment & Plan Note - Mary Foster APRN.CNP - 03/29/2024 2:30 PM EST Associated Problem(s): Hyperlipidemia Assessment: c/w statin * Assessment & Plan Note - Mary Foster APRN.CNP - 03/29/2024 2:28 PM EST Associated Problem(s): Primary hypertension Assessment: controlled on rx * Assessment & Plan Note - Mary Foster APRN.CNP - 03/29/2024 2:28 PM EST Associated Problem(s): Obstructive lung disease (HCC) Assessment: rx as needed 12/2022 PFT's IMPRESSION: Spirometry is normal. The increase in FEF 25-75 post-bronchodilator reflects an improvement in the small airway obstruction. 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 Paroxysmal atrial fibrillation (HCC) Atrial fibrillation Pulmonary hypertension (HCC) Other chronic pulmonary heart diseases TIA (transient ischemic attack) Unspecified transient cerebral ischemia Disorder of carotid artery (HCC) Unspecified disorders of arteries and arterioles Situational mixed anxiety and depressive disorder Adjustment disorder with mixed anxiety and depressed mood Subclinical hypothyroidism Other specified acquired hypothyroidism Hypokalemia Hypopotassemia Iron deficiency anemia, unspecified iron deficiency anemia type Personal history of malignant melanoma of skin IFG (impaired fasting glucose) Impaired fasting glucose Arthritis, multiple joint involvement Unspecified arthropathy, multiple sites BMI 38.0-38.9,adult Body Mass Index 38.0-38.9, adult Gastroesophageal reflux disease, unspecified whether esophagitis present Gastroesophageal reflux disease, unspecified whether esophagitis present- Primary Epigastric abdominal pain Abdominal pain, epigastric Pulmonary hypertension (HCC) Other chronic pulmonary heart diseases documented in this encounter [facility] note* Diagnosis Pre-operative examination- Primary Preoperative examination, unspecified JOSE on CPAP Obstructive sleep apnea (adult) (pediatric) Obstructive lung disease (HCC) Chronic airway obstruction, not elsewhere classified Primary hypertension Unspecified essential hypertension Hyperlipidemia, unspecified hyperlipidemia type 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 Paroxysmal atrial fibrillation (HCC) Atrial fibrillation Pulmonary hypertension (HCC) Other chronic pulmonary heart diseases TIA (transient ischemic attack) Unspecified transient cerebral ischemia Disorder of carotid artery (HCC) Unspecified disorders of arteries and arterioles Situational mixed anxiety and depressive disorder Adjustment disorder with mixed anxiety and depressed mood Subclinical hypothyroidism Other specified acquired hypothyroidism Hypokalemia Hypopotassemia Iron deficiency anemia, unspecified iron deficiency anemia type Personal history of malignant melanoma of skin IFG (impaired fasting glucose) Impaired fasting glucose Arthritis, multiple joint involvement Unspecified arthropathy, multiple sites BMI 38.0-38.9,adult Body Mass Index 38.0-38.9, adult Gastroesophageal reflux disease, unspecified whether esophagitis present Other gastritis without bleeding- Primary [facility] Diagnosis Pre-operative examination- Primary Preoperative examination, unspecified JOSE on CPAP Obstructive sleep apnea (adult) (pediatric) Obstructive lung disease (HCC) Chronic airway obstruction, not elsewhere classified Primary hypertension Unspecified essential hypertension Hyperlipidemia, unspecified hyperlipidemia type 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 Paroxysmal atrial fibrillation (HCC) Atrial fibrillation Pulmonary hypertension (HCC) Other chronic pulmonary heart diseases TIA (transient ischemic attack) Unspecified transient cerebral ischemia Disorder of carotid artery (HCC) Unspecified disorders of arteries and arterioles Situational mixed anxiety and depressive disorder Adjustment disorder with mixed anxiety and depressed mood Subclinical hypothyroidism Other specified acquired hypothyroidism Hypokalemia Hypopotassemia Iron deficiency anemia, unspecified iron deficiency anemia type Personal history of malignant melanoma of skin IFG (impaired fasting glucose) Impaired fasting glucose Arthritis, multiple joint involvement Unspecified arthropathy, multiple sites BMI 38.0-38.9,adult Body Mass Index 38.0-38.9, adult Gastroesophageal reflux disease, unspecified whether esophagitis present Difficulty walking- Primary Difficulty in walking Imbalance Abnormality of gait Weakness Other malaise and fatigue documented in this encounter [facility] note* Diagnosis Pre-operative examination- Primary Preoperative examination, unspecified JOSE on CPAP Obstructive sleep apnea (adult) (pediatric) Obstructive lung disease (HCC) Chronic airway obstruction, not elsewhere classified Primary hypertension Unspecified essential hypertension Hyperlipidemia, unspecified hyperlipidemia type 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 Paroxysmal atrial fibrillation (HCC) Atrial fibrillation Pulmonary hypertension (HCC) Other chronic pulmonary heart diseases TIA (transient ischemic attack) Unspecified transient cerebral ischemia Disorder of carotid artery (HCC) Unspecified disorders of arteries and arterioles Situational mixed anxiety and depressive disorder Adjustment disorder with mixed anxiety and depressed mood Subclinical hypothyroidism Other specified acquired hypothyroidism Hypokalemia Hypopotassemia Iron deficiency anemia, unspecified iron deficiency anemia type Personal history of malignant melanoma of skin IFG (impaired fasting glucose) Impaired fasting glucose Arthritis, multiple joint involvement Unspecified arthropathy, multiple sites BMI 38.0-38.9,adult Body Mass Index 38.0-38.9, adult Gastroesophageal reflux disease, unspecified whether esophagitis present Difficulty walking- Primary Difficulty in walking Weakness Other malaise and fatigue Imbalance Abnormality of gait [facility] Diagnosis Pre-operative examination- Primary Preoperative examination, unspecified JOSE on CPAP Obstructive sleep apnea (adult) (pediatric) Obstructive lung disease (HCC) Chronic airway obstruction, not elsewhere classified Primary hypertension Unspecified essential hypertension Hyperlipidemia, unspecified hyperlipidemia type 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 Paroxysmal atrial fibrillation (HCC) Atrial fibrillation Pulmonary hypertension (HCC) Other chronic pulmonary heart diseases TIA (transient ischemic attack) Unspecified transient cerebral ischemia Disorder of carotid artery (HCC) Unspecified disorders of arteries and arterioles Situational mixed anxiety and depressive disorder Adjustment disorder with mixed anxiety and depressed mood Subclinical hypothyroidism Other specified acquired hypothyroidism Hypokalemia Hypopotassemia Iron deficiency anemia, unspecified iron deficiency anemia type Personal history of malignant melanoma of skin IFG (impaired fasting glucose) Impaired fasting glucose Arthritis, multiple joint involvement Unspecified arthropathy, multiple sites BMI 38.0-38.9,adult Body Mass Index 38.0-38.9, adult Gastroesophageal reflux disease, unspecified whether esophagitis present Situational insomnia Transient disorder of initiating or maintaining sleep Situational mixed anxiety and depressive disorder Adjustment disorder with mixed anxiety and depressed mood documented in this encounter [facility] note* Diagnosis Pre-operative examination- Primary Preoperative examination, unspecified JOSE on CPAP Obstructive sleep apnea (adult) (pediatric) Obstructive lung disease (HCC) Chronic airway obstruction, not elsewhere classified Primary hypertension Unspecified essential hypertension Hyperlipidemia, unspecified hyperlipidemia type 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 Paroxysmal atrial fibrillation (HCC) Atrial fibrillation Pulmonary hypertension (HCC) Other chronic pulmonary heart diseases TIA (transient ischemic attack) Unspecified transient cerebral ischemia Disorder of carotid artery (HCC) Unspecified disorders of arteries and arterioles Situational mixed anxiety and depressive disorder Adjustment disorder with mixed anxiety and depressed mood Subclinical hypothyroidism Other specified acquired hypothyroidism Hypokalemia Hypopotassemia Iron deficiency anemia, unspecified iron deficiency anemia type Personal history of malignant melanoma of skin IFG (impaired fasting glucose) Impaired fasting glucose Arthritis, multiple joint involvement Unspecified arthropathy, multiple sites BMI 38.0-38.9,adult Body Mass Index 38.0-38.9, adult Gastroesophageal reflux disease, unspecified whether esophagitis present Hospital discharge follow-up- Primary Other follow-up examination Congestive heart failure, unspecified HF chronicity, unspecified heart failure type (HCC) Thyroid disease Unspecified disorder of thyroid Restless leg Restless legs syndrome (RLS) documented in this encounter [facility] note* Diagnosis Pre-operative examination- Primary Preoperative examination, unspecified JOSE on CPAP Obstructive sleep apnea (adult) (pediatric) Obstructive lung disease (HCC) Chronic airway obstruction, not elsewhere classified Primary hypertension Unspecified essential hypertension Hyperlipidemia, unspecified hyperlipidemia type 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 Paroxysmal atrial fibrillation (HCC) Atrial fibrillation Pulmonary hypertension (HCC) Other chronic pulmonary heart diseases TIA (transient ischemic attack) Unspecified transient cerebral ischemia Disorder of carotid artery (HCC) Unspecified disorders of arteries and arterioles Situational mixed anxiety and depressive disorder Adjustment disorder with mixed anxiety and depressed mood Subclinical hypothyroidism Other specified acquired hypothyroidism Hypokalemia Hypopotassemia Iron deficiency anemia, unspecified iron deficiency anemia type Personal history of malignant melanoma of skin IFG (impaired fasting glucose) Impaired fasting glucose Arthritis, multiple joint involvement Unspecified arthropathy, multiple sites BMI 38.0-38.9,adult Body Mass Index 38.0-38.9, adult Gastroesophageal reflux disease, unspecified whether esophagitis present Congestive heart failure, unspecified HF chronicity, unspecified heart failure type (HCC)- Primary Function kidney decreased Unspecified disorder of kidney and ureter Anxiety Anxiety state, unspecified [facility] Diagnosis Pre-operative examination- Primary Preoperative examination, unspecified JOSE on CPAP Obstructive sleep apnea (adult) (pediatric) Obstructive lung disease (HCC) Chronic airway obstruction, not elsewhere classified Primary hypertension Unspecified essential hypertension Hyperlipidemia, unspecified hyperlipidemia type 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 Paroxysmal atrial fibrillation (HCC) Atrial fibrillation Pulmonary hypertension (HCC) Other chronic pulmonary heart diseases TIA (transient ischemic attack) Unspecified transient cerebral ischemia Disorder of carotid artery (HCC) Unspecified disorders of arteries and arterioles Situational mixed anxiety and depressive disorder Adjustment disorder with mixed anxiety and depressed mood Subclinical hypothyroidism Other specified acquired hypothyroidism Hypokalemia Hypopotassemia Iron deficiency anemia, unspecified iron deficiency anemia type Personal history of malignant melanoma of skin IFG (impaired fasting glucose) Impaired fasting glucose Arthritis, multiple joint involvement Unspecified arthropathy, multiple sites BMI 38.0-38.9,adult Body Mass Index 38.0-38.9, adult Gastroesophageal reflux disease, unspecified whether esophagitis present Function kidney decreased- Primary Unspecified disorder of kidney and ureter Congestive heart failure, unspecified HF chronicity, unspecified heart failure type (HCC) [facility]* Diagnosis Pre-operative examination- Primary Preoperative examination, unspecified JOSE on CPAP Obstructive sleep apnea (adult) (pediatric) Obstructive lung disease (HCC) Chronic airway obstruction, not elsewhere classified Primary hypertension Unspecified essential hypertension Hyperlipidemia, unspecified hyperlipidemia type 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 Paroxysmal atrial fibrillation (HCC) Atrial fibrillation Pulmonary hypertension (HCC) Other chronic pulmonary heart diseases TIA (transient ischemic attack) Unspecified transient cerebral ischemia Disorder of carotid artery (HCC) Unspecified disorders of arteries and arterioles Situational mixed anxiety and depressive disorder Adjustment disorder with mixed anxiety and depressed mood Subclinical hypothyroidism Other specified acquired hypothyroidism Hypokalemia Hypopotassemia Iron deficiency anemia, unspecified iron deficiency anemia type Personal history of malignant melanoma of skin IFG (impaired fasting glucose) Impaired fasting glucose Arthritis, multiple joint involvement Unspecified arthropathy, multiple sites BMI 38.0-38.9,adult Body Mass Index 38.0-38.9, adult Gastroesophageal reflux disease, unspecified whether esophagitis present Function kidney decreased- Primary Unspecified disorder of kidney and ureter Congestive heart failure, unspecified HF chronicity, unspecified heart failure type ([facility]) [facility] Diagnosis Pre-operative examination- Primary Preoperative examination, unspecified JOSE on CPAP Obstructive sleep apnea (adult) (pediatric) Obstructive lung disease (HCC) Chronic airway obstruction, not elsewhere classified Primary hypertension Unspecified essential hypertension Hyperlipidemia, unspecified hyperlipidemia type 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 Paroxysmal atrial fibrillation (HCC) Atrial fibrillation Pulmonary hypertension (HCC) Other chronic pulmonary heart diseases TIA (transient ischemic attack) Unspecified transient cerebral ischemia Disorder of carotid artery (HCC) Unspecified disorders of arteries and arterioles Situational mixed anxiety and depressive disorder Adjustment disorder with mixed anxiety and depressed mood Subclinical hypothyroidism Other specified acquired hypothyroidism Hypokalemia Hypopotassemia Iron deficiency anemia, unspecified iron deficiency anemia type Personal history of malignant melanoma of skin IFG (impaired fasting glucose) Impaired fasting glucose Arthritis, multiple joint involvement Unspecified arthropathy, multiple sites BMI 38.0-38.9,adult Body Mass Index 38.0-38.9, adult Gastroesophageal reflux disease, unspecified whether esophagitis present Obstructive lung disease (HCC)- Primary Chronic airway obstruction, not elsewhere classified Thyroid disease Unspecified disorder of thyroid Pulmonary hypertension (HCC) Other chronic pulmonary heart diseases WELCH (dyspnea on exertion) Other dyspnea and respiratory abnormality Function kidney decreased Unspecified disorder of kidney and ureter Situational mixed anxiety and depressive disorder Adjustment disorder with mixed anxiety and depressed mood Arthritis, multiple joint involvement Unspecified arthropathy, multiple sites [facility]* Diagnosis Pre-operative examination- Primary Preoperative examination, unspecified JOSE on CPAP Obstructive sleep apnea (adult) (pediatric) Obstructive lung disease (HCC) Chronic airway obstruction, not elsewhere classified Primary hypertension Unspecified essential hypertension Hyperlipidemia, unspecified hyperlipidemia type 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 Paroxysmal atrial fibrillation (HCC) Atrial fibrillation Pulmonary hypertension (HCC) Other chronic pulmonary heart diseases TIA (transient ischemic attack) Unspecified transient cerebral ischemia Disorder of carotid artery Unspecified disorders of arteries and arterioles Situational mixed anxiety and depressive disorder Adjustment disorder with mixed anxiety and depressed mood Subclinical hypothyroidism Other specified acquired hypothyroidism Hypokalemia Hypopotassemia Iron deficiency anemia, unspecified iron deficiency anemia type Personal history of malignant melanoma of skin IFG (impaired fasting glucose) Impaired fasting glucose Arthritis, multiple joint involvement Unspecified arthropathy, multiple sites BMI 38.0-38.9,adult Body Mass Index 38.0-38.9, adult Gastroesophageal reflux disease, unspecified whether esophagitis present Anxiety- Primary Anxiety state, unspecified Dysthymia Dysthymic disorder Congestive heart failure, unspecified HF chronicity, unspecified heart failure type (HCC) Function kidney decreased Unspecified disorder of kidney and ureter Obstructive lung disease (HCC) Chronic airway obstruction, not elsewhere classified Pulmonary hypertension (HCC) Other chronic pulmonary heart diseases documented in this encounter [facility] note* Diagnosis Pre-operative examination- Primary Preoperative examination, unspecified JOSE on CPAP Obstructive sleep apnea (adult) (pediatric) Obstructive lung disease (HCC) Chronic airway obstruction, not elsewhere classified Primary hypertension Unspecified essential hypertension Hyperlipidemia, unspecified hyperlipidemia type 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 Paroxysmal atrial fibrillation (HCC) Atrial fibrillation Pulmonary hypertension (HCC) Other chronic pulmonary heart diseases TIA (transient ischemic attack) Unspecified transient cerebral ischemia Disorder of carotid artery Unspecified disorders of arteries and arterioles Situational mixed anxiety and depressive disorder Adjustment disorder with mixed anxiety and depressed mood Subclinical hypothyroidism Other specified acquired hypothyroidism Hypokalemia Hypopotassemia Iron deficiency anemia, unspecified iron deficiency anemia type Personal history of malignant melanoma of skin IFG (impaired fasting glucose) Impaired fasting glucose Arthritis, multiple joint involvement Unspecified arthropathy, multiple sites BMI 38.0-38.9,adult Body Mass Index 38.0-38.9, adult Gastroesophageal reflux disease, unspecified whether esophagitis present Hypoglycemia- Primary Hypoglycemia, unspecified Restless leg Restless legs syndrome (RLS) Dysthymia Dysthymic disorder Congestive heart failure, unspecified HF chronicity, unspecified heart failure type (HCC) Obstructive lung disease (HCC) Chronic airway obstruction, not elsewhere classified Arthritis, multiple joint involvement Unspecified arthropathy, multiple sites Gait abnormality Abnormality of gait Chronic respiratory failure with hypoxia (HCC) Chronic respiratory failure documented in this encounter [facility] note* Diagnosis Pre-operative examination- Primary Preoperative examination, unspecified JOSE on CPAP Obstructive sleep apnea (adult) (pediatric) Obstructive lung disease (HCC) Chronic airway obstruction, not elsewhere classified Primary hypertension Unspecified essential hypertension Hyperlipidemia, unspecified hyperlipidemia type 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 Paroxysmal atrial fibrillation (HCC) Atrial fibrillation Pulmonary hypertension (HCC) Other chronic pulmonary heart diseases TIA (transient ischemic attack) Unspecified transient cerebral ischemia Disorder of carotid artery Unspecified disorders of arteries and arterioles Situational mixed anxiety and depressive disorder Adjustment disorder with mixed anxiety and depressed mood Subclinical hypothyroidism Other specified acquired hypothyroidism Hypokalemia Hypopotassemia Iron deficiency anemia, unspecified iron deficiency anemia type Personal history of malignant melanoma of skin IFG (impaired fasting glucose) Impaired fasting glucose Arthritis, multiple joint involvement Unspecified arthropathy, multiple sites BMI 38.0-38.9,adult Body Mass Index 38.0-38.9, adult Gastroesophageal reflux disease, unspecified whether esophagitis present Congestive heart failure, unspecified HF chronicity, unspecified heart failure type (HCC)- Primary Obstructive lung disease (HCC) Chronic airway obstruction, not elsewhere classified Chronic respiratory failure with hypoxia (HCC) Chronic respiratory failure documented in this encounter [facility] note* Diagnosis Pre-operative examination- Primary Preoperative examination, unspecified JOSE on CPAP Obstructive sleep apnea (adult) (pediatric) Obstructive lung disease (HCC) Chronic airway obstruction, not elsewhere classified Primary hypertension Unspecified essential hypertension Hyperlipidemia, unspecified hyperlipidemia type 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 Paroxysmal atrial fibrillation (HCC) Atrial fibrillation Pulmonary hypertension (HCC) Other chronic pulmonary heart diseases TIA (transient ischemic attack) Unspecified transient cerebral ischemia Disorder of carotid artery Unspecified disorders of arteries and arterioles Situational mixed anxiety and depressive disorder Adjustment disorder with mixed anxiety and depressed mood Subclinical hypothyroidism Other specified acquired hypothyroidism Hypokalemia Hypopotassemia Iron deficiency anemia, unspecified iron deficiency anemia type Personal history of malignant melanoma of skin IFG (impaired fasting glucose) Impaired fasting glucose Arthritis, multiple joint involvement Unspecified arthropathy, multiple sites BMI 38.0-38.9,adult Body Mass Index 38.0-38.9, adult Gastroesophageal reflux disease, unspecified whether esophagitis present Arthritis, multiple joint involvement Unspecified arthropathy, multiple sites [facility] Diagnosis Pre-operative examination- Primary Preoperative examination, unspecified JOSE on CPAP Obstructive sleep apnea (adult) (pediatric) Obstructive lung disease (HCC) Chronic airway obstruction, not elsewhere classified Primary hypertension Unspecified essential hypertension Hyperlipidemia, unspecified hyperlipidemia type 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 Paroxysmal atrial fibrillation (HCC) Atrial fibrillation Pulmonary hypertension (HCC) Other chronic pulmonary heart diseases TIA (transient ischemic attack) Unspecified transient cerebral ischemia Disorder of carotid artery Unspecified disorders of arteries and arterioles Situational mixed anxiety and depressive disorder Adjustment disorder with mixed anxiety and depressed mood Subclinical hypothyroidism Other specified acquired hypothyroidism Hypokalemia Hypopotassemia Iron deficiency anemia, unspecified iron deficiency anemia type Personal history of malignant melanoma of skin IFG (impaired fasting glucose) Impaired fasting glucose Arthritis, multiple joint involvement Unspecified arthropathy, multiple sites BMI 38.0-38.9,adult Body Mass Index 38.0-38.9, adult Gastroesophageal reflux disease, unspecified whether esophagitis present Weakness- Primary Other malaise and fatigue Difficulty walking Difficulty in walking Abnormality of gait Imbalance Abnormality of gait [facility] Diagnosis Pre-operative examination- Primary Preoperative examination, unspecified JOSE on CPAP Obstructive sleep apnea (adult) (pediatric) Obstructive lung disease (HCC) Chronic airway obstruction, not elsewhere classified Primary hypertension Unspecified essential hypertension Hyperlipidemia, unspecified hyperlipidemia type 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 Paroxysmal atrial fibrillation (HCC) Atrial fibrillation Pulmonary hypertension (HCC) Other chronic pulmonary heart diseases TIA (transient ischemic attack) Unspecified transient cerebral ischemia Disorder of carotid artery Unspecified disorders of arteries and arterioles Situational mixed anxiety and depressive disorder Adjustment disorder with mixed anxiety and depressed mood Subclinical hypothyroidism Other specified acquired hypothyroidism Hypokalemia Hypopotassemia Iron deficiency anemia, unspecified iron deficiency anemia type Personal history of malignant melanoma of skin IFG (impaired fasting glucose) Impaired fasting glucose Arthritis, multiple joint involvement Unspecified arthropathy, multiple sites BMI 38.0-38.9,adult Body Mass Index 38.0-38.9, adult Gastroesophageal reflux disease, unspecified whether esophagitis present Abnormality of gait- Primary Weakness Other malaise and fatigue Difficulty walking Difficulty in walking Imbalance Abnormality of gait documented [facility] Diagnosis Pre-operative examination- Primary Preoperative examination, unspecified JOSE on CPAP Obstructive sleep apnea (adult) (pediatric) Obstructive lung disease (HCC) Chronic airway obstruction, not elsewhere classified Primary hypertension Unspecified essential hypertension Hyperlipidemia, unspecified hyperlipidemia type 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 Paroxysmal atrial fibrillation (HCC) Atrial fibrillation Pulmonary hypertension (HCC) Other chronic pulmonary heart diseases TIA (transient ischemic attack) Unspecified transient cerebral ischemia Disorder of carotid artery Unspecified disorders of arteries and arterioles Situational mixed anxiety and depressive disorder Adjustment disorder with mixed anxiety and depressed mood Subclinical hypothyroidism Other specified acquired hypothyroidism Hypokalemia Hypopotassemia Iron deficiency anemia, unspecified iron deficiency anemia type Personal history of malignant melanoma of skin IFG (impaired fasting glucose) Impaired fasting glucose Arthritis, multiple joint involvement Unspecified arthropathy, multiple sites BMI 38.0-38.9,adult Body Mass Index 38.0-38.9, adult Gastroesophageal reflux disease, unspecified whether esophagitis present Abnormality of gait- Primary Weakness Other malaise and fatigue Difficulty walking Difficulty in walking Imbalance Abnormality of gait [facility] Diagnosis Pre-operative examination- Primary Preoperative examination, unspecified JOSE on CPAP Obstructive sleep apnea (adult) (pediatric) Obstructive lung disease (HCC) Chronic airway obstruction, not elsewhere classified Primary hypertension Unspecified essential hypertension Hyperlipidemia, unspecified hyperlipidemia type 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 Paroxysmal atrial fibrillation (HCC) Atrial fibrillation Pulmonary hypertension (HCC) Other chronic pulmonary heart diseases TIA (transient ischemic attack) Unspecified transient cerebral ischemia Disorder of carotid artery Unspecified disorders of arteries and arterioles Situational mixed anxiety and depressive disorder Adjustment disorder with mixed anxiety and depressed mood Subclinical hypothyroidism Other specified acquired hypothyroidism Hypokalemia Hypopotassemia Iron deficiency anemia, unspecified iron deficiency anemia type Personal history of malignant melanoma of skin IFG (impaired fasting glucose) Impaired fasting glucose Arthritis, multiple joint involvement Unspecified arthropathy, multiple sites BMI 38.0-38.9,adult Body Mass Index 38.0-38.9, adult Gastroesophageal reflux disease, unspecified whether esophagitis present Abnormality of gait- Primary Weakness Other malaise and fatigue Difficulty walking Difficulty in walking Imbalance Abnormality of gait documented in this [facility] noteNo assessment information availableBlSherman Oaks [facility] Work Phone: Evaluation note* Diagnosis Onset Date Resolution Status Admit Date WELCH (dyspnea on exertion) acute November 02, 2024 9:16am 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 acute November 02, 2024 9:16am Pulmonary hypertension acute Ju 2024 9:16am Right carotid bruit acute November 02, 2024 9:16am Essential (primary) hypertension chronic November 02, 2024 9:16am History of permanent cardiac pacemaker placement June 09, 2021 chronic J silvia2024 9:16am Paroxysmal atrial fibrillation chronic November 02, 2024 9:16am [facility] Work Phone: Evaluation note* Diagnosis Pre-operative examination- Primary Preoperative examination, unspecified JOSE on CPAP Obstructive sleep apnea (adult) (pediatric) Obstructive lung disease (HCC) Chronic airway obstruction, not elsewhere classified Primary hypertension Unspecified essential hypertension Hyperlipidemia, unspecified hyperlipidemia type 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 Paroxysmal atrial fibrillation (HCC) Atrial fibrillation Pulmonary hypertension (HCC) Other chronic pulmonary heart diseases TIA (transient ischemic attack) Unspecified transient cerebral ischemia Disorder of carotid artery Unspecified disorders of arteries and arterioles Situational mixed anxiety and depressive disorder Adjustment disorder with mixed anxiety and depressed mood Subclinical hypothyroidism Other specified acquired hypothyroidism Hypokalemia Hypopotassemia Iron deficiency anemia, unspecified iron deficiency anemia type Personal history of malignant melanoma of skin IFG (impaired fasting glucose) Impaired fasting glucose Arthritis, multiple joint involvement Unspecified arthropathy, multiple sites BMI 38.0-38.9,adult Body Mass Index 38.0-38.9, adult Gastroesophageal reflux disease, unspecified whether esophagitis present Anxiety Anxiety state, unspecified documented in this encounter [facility] note* Diagnosis Pre-operative examination- Primary Preoperative examination, unspecified JOSE on CPAP Obstructive sleep apnea (adult) (pediatric) Obstructive lung disease (HCC) Chronic airway obstruction, not elsewhere classified Primary hypertension Unspecified essential hypertension Hyperlipidemia, unspecified hyperlipidemia type 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 Paroxysmal atrial fibrillation (HCC) Atrial fibrillation Pulmonary hypertension (HCC) Other chronic pulmonary heart diseases TIA (transient ischemic attack) Unspecified transient cerebral ischemia Disorder of carotid artery Unspecified disorders of arteries and arterioles Situational mixed anxiety and depressive disorder Adjustment disorder with mixed anxiety and depressed mood Subclinical hypothyroidism Other specified acquired hypothyroidism Hypokalemia Hypopotassemia Iron deficiency anemia, unspecified iron deficiency anemia type Personal history of malignant melanoma of skin IFG (impaired fasting glucose) Impaired fasting glucose Arthritis, multiple joint involvement Unspecified arthropathy, multiple sites BMI 38.0-38.9,adult Body Mass Index 38.0-38.9, adult Gastroesophageal reflux disease, unspecified whether esophagitis present TIA (transient ischemic attack) Unspecified transient cerebral ischemia Hyperlipidemia, unspecified hyperlipidemia type documented in this encounter [facility] for referral (narrative)* Outpatient Procedure (Routine) - Authorized Specialty Diagnoses / Procedures [facility] Ref[facility] To Contact [facility] Diagnoses Gastroesophageal reflux disease with esophagitis without hemorrhage Procedures EGD DIAGNOSTIC ESOPHAGOGASTRODUODENOSC OPY TRANSORAL DIAGNOSTIC Raymundo De León MD [address] [facility] [place] [place] [address] [place] [address] Referral ID Status Reason Start Date Expiration Date Visits Requested Visits Authorized [id number] Authorized Auto-Generat ed Referral 12/18/2021 12/18/2022 1 1 [facility] for referral (narrative)* Outpatient Procedure (Routine) - Closed Specialty Diagnoses / Procedures [facility] bond Referred To Contact [facility] Diagnoses Gastroesophageal reflux disease with esophagitis without hemorrhage Procedures EGD DIAGNOSTIC ESOPHAGOGASTRODUODENOSC OPY TRANSORAL DIAGNOSTIC Raymundo De León MD [address] [place] [address] [place] [address] Referral ID Status Reason Start Date Expiration Date V isits Requested Visits Authorized [id number] Closed Auto-Generate d Referral 12/18/2021 12/18/2022 1 1 [facility] for referral (narrative)* Outpatient Procedure (Routine) - Authorized Specialty Diagnoses / Procedures [facility] Referred To Contact [facility] Diagnoses SOB (shortness of breath) on exertion Procedures ECHO ECHO TTHRC R-T 2D W/WOM-MODE COMPL SPEC&COLR D Key Portillo APRN.HATCHERY MAN [address] [place] [address] [facility] [address] [address] Referral ID Status Reason Start Date Expiration Date Visits Requested Visits Authorized [id number] Authorized Auto-Generat ed Referral 06/04/2022 06/04/2023 1 1 * Outpatient Procedure (Routine) - Closed Specialty Diagnoses / Procedures [facility] To Contact [facility] Diagnoses SOB (shortness of breath) on exertion Procedures ECG COMPLETE ECG ROUTINE ECG W/LEAST 12 LDS W/I&R Key Portillo APRN.HATCHERY MAN [address] [place] [address] [address] Referral ID Status Reason Start Date Expiration Date V isits Requested Visits Authorized [id number] Closed Auto-Generate d Referral 06/04/2022 06/04/2023 1 1 [facility] for referral (narrative)* Outpatient Procedure (Routine) - Authorized Specialty Diagnoses / Procedures [facility] Diagnoses WELCH (dyspnea on exertion) Procedures SPIROMETRY - BASELINE AND POST DILATOR BRNCDILAT RSPSE SPMTRY PRE&POST-BRNCDILAT ADMMichael Morrison DO [address] [place] [address] [facility] [place] [address] [place] [id number] Referral ID Status Reason Start Date Expiration Date Visits Requested Visits Authorized [id number] Authorized Auto-Generat ed Referral 12/22/2022 01/21/2024 1 1 [facility] for referral (narrative)* Outpatient Procedure (Routine) - Authorized Specialty Diagnoses / Procedures Referred By Contac t Referred To [facility] Diagnoses Epigastric abdominal pain Pulmonary hypertension (HCC) Procedures EGD DIAGNOSTIC ESOPHAGOGASTRODUODENOSCO PY TRANSORAL DIAGNOSTIC Sharon Jarrett APRN.HATCHERY MAN [address] [place] [address] [place] [phone] Referral ID Status Reason Start Date Expiration Date Visits Requested Visits Authorized [id number] Authorized Auto-Generat ed Referral 03/13/2025 1 1 [facility] for referral (narrative)* Outpatient Procedure (Routine) - Closed Specialty Diagnoses / Procedures Referred By Colton bond Referred To [facility] Diagnoses Epigastric abdominal pain Pulmonary hypertension (HCC) Procedures EGD DIAGNOSTIC ESOPHAGOGASTRODUODENOSCO PY TRANSORAL DIAGNOSTIC Sharon Jarrett APRN.CNP [address] [place] [address] [place] [phone] Referral ID Status Reason Start Date Expiration Date V isits Requested Visits Authorized [id number] Closed Auto-Generate d Referral 03/13/2024 03/13/2025 1 1 [facility] for referral (narrative)No reason for referral information availableWFirelands Regional Medical [facility] Work Phone: Reason for visit Narrative* Outpatient Procedure (Routine) - Closed Specialty Diagnoses / Procedures Referred By Contac t Referred To [facility] Diagnoses Gastroesophageal reflux disease with esophagitis without hemorrhage Procedures EGD DIAGNOSTIC ESOPHAGOGASTRODUODENOSC OPY TRANSORAL DIAGNOSTIC Raymundo De León MD [address] [place] [address] [facility] [place] [address] [place] [address] Referral ID Status Reason Start Date Expiration Date V isits Requested Visits Authorized [id number] Closed Auto-Generate d Referral 12/18/2021 12/18/2022 1 1 [facility]* Outpatient Procedure (Routine) - Closed Specialty Diagnoses / Procedures Referred By Contac t Referred [facility] Diagnoses Epigastric abdominal pain Pulmonary hypertension (HCC) Procedures EGD DIAGNOSTIC ESOPHAGOGASTRODUODENOSCO PY TRANSORAL DIAGNOSTIC Sharon Jarrett APRN.HATCHERY MAN [address] [place] [address] [facility] [place] [address] [place] [address] Referral ID Status Reason Start Date Expiration Date V isits Requested Visits Authorized [id number] Closed Auto-Generate d Referral 03/13/2024 03/13/2025 1 1 [facility] Summary Purpose Family History Relationship Condition Age at Onset Recorded Date/T burt grandfather Myocardial infarction Unknown Sudden cardiac Unknown father Myocardial infarction Unknown Coronary artery disease Unknown Congestive heart failure Unknown mother Myocardial infarction Unknown Atrial fibrillation Unknown brother Atrial fibrillation Unknown brother Malignant neoplasm Unknown son Diabetes mellitus Unknown son Hypertension Unknown Advance Directives Documents on File Type Date Recorded 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 Advance Directive(s) 10/17/2020 9:40 AM Advance Directive(s) 06/29/2017 10:43 AM Advance Directive(s) 06/29/2017 6:40 AM Advance Directive Response Recorded Date/ Time Advance Directives Yes June 09, 2021 11:35am Living Will Yes June 09 11:35am Power of Globe Changer Yes June 09, 2021 11:35am Documents on File Type Date Recorded 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 Advance Directive(s) 06/29/2017 6:40 AM Documents on File Type Date Recorded 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 Yes September 28, 2023 12:26am Living Will Yes April 30, 024 11:40am Do you have a Healthcare Pow er of Globe Changer? Yes April 30, 2024 11:40am Name of Medical Power of Globe Changer Yumiko Elena, daughter April 30, 2024 11:40am Advance Directives Yes June 09, 2021 11:35am Advance Directive Response Recorded Date/ Time Advance Directives Yes June 09, 2021 11:35am Chief Complaint and Reason for Visit Chief Complaint GEN CHANGE/MMM 1:00 BATTERY DEPLETION 1 wk s/p PPM generator change wound check INT LABS Reason for Visit Fatigue Essential (primary) hypertension History of permanent cardiac pacemaker placement Hyperlipidemia Paroxysmal atrial fibrillation History of permanent cardiac pacemaker placement Paroxysmal atrial fibrillation Sick sinus syndrome History of permanent cardiac pacemaker placement Paroxysmal atrial fibrillation Sick sinus syndrome Chief Complaint Admit Date Pacer Check Remote 2024 3:05am HYPOXIA, HFPEF EXACERBATION April 9:27am EKG April 30, 2024 3:19pm HYPOXIA, HFPEF EXACERBATION April 9:05am HYPOXIA, HFPEF EXACERBATION April 11:06am Pacer Check Remote June 01, 2024 9 :00am Annual In Clinic Check/ Sees MMM @ 1:30 June 01, 2024 12:59pm 4 M FU/ Sees Lisa @ 1 June 01, 2024 1:19pm Contunuation of care June 16, 2024 9:59am Z79.899 - Other lobsterman (current) drug therapy June 22, 2024 8:30am BRUIT July 03, 2024 12:4 1pm EORDER July 07, 2024 2:49 pm Reason for Visit Admit Date CHF (congestive heart failure) April 30, 2024 9:27am Hypoxia April 30, 2024 9:27am History of permanent cardiac pacemaker p lacement June 01, 2024 12:59pm Paroxysmal atrial fibrillation May 052024 12:59pm Sick sinus syndrome June 01, 2024 1 2:59pm skilled nursing current use of amiodarone Dewayne bhagat 2024 1:19pm Pulmonary hypertension June 01 1:19pm Right carotid bruit June 01, 2024 1 :19pm Essential (primary) hypertension June 01, 2024 1:19pm History of permanent cardiac pacemaker p lacement June 01, 2024 1:19pm Paroxysmal atrial fibrillation May 052024 1:19pm Chief Complaint Admit Date BRUIT July 03, 2024 12:4 1pm EORDER July 07, 2024 2:49 pm Pacer Check Remote July 28, 2024 2:0 0am Pacer Check Remote October 16, 2024 2:00 am Pacer Check Remote October 23, 2024 2:00 am Chief Complaint Admit Date EORDER July 07, 2024 2:49 pm Pacer Check Remote July 28, 2024 2:0 0am Pacer Check Remote October 16, 2024 2:00 am Pacer Check Remote October 23, 2024 2:00 am Pacer Check Remote October 27, 2024 2:22 am See clinical notes re: SOB, appt moved u p November 02, 2024 9:16am Reason for Visit Admit Date WELCH (dyspnea on exertion) November 02, 2024 9:16am skilled nursing current use of amiodarone November 02, 2024 9:16am Pulmonary hypertension November 02, 2024 9: 16am Right carotid bruit November 02, 2024 9:16a m Essential (primary) hypertension October 9:16am History of permanent cardiac pacemaker p lacement November 02, 2024 9:16am Paroxysmal atrial fibrillation November 02, 2024 9:16am Reason for Visit Admit Date WELCH (dyspnea on exertion) November 02, 2024 9:16am skilled nursing current use of amiodarone November 02, 2024 9:16am Pulmonary hypertension November 02, 2024 9: 16am Essential (primary) hypertension October 9:16am History of permanent cardiac pacemaker p lacement November 02, 2024 9:16am Paroxysmal atrial fibrillation November 02, 2024 9:16am Chief Complaint Admit Date Pacer Check Remote July 28, 2024 2:0 0am Pacer Check Remote October 16, 2024 2:00 am Pacer Check Remote October 23, 2024 2:00 am Pacer Check Remote October 27, 2024 2:22 am See clinical notes re: SOB, appt moved u p November 02, 2024 9:16am Medications Administered Section Inactive Administered Medications - up to 3 most recent administrations Medication Order MAR Action Action Date Dose Rate Site benzocaine 20% 1 [place] (TOPEX) 1 [place], TOPICAL, DIRECTED, Starting on Kaye 01/08/22 at 1430, Until Kaye 01/08/22 at 1829, DOSING DIRECTED BY PHYSICIAN FOR PROCEDURAL SEDATION ONLY - Pharmaceutical Waste: Aerosol -, Intraprocedure Given 01/08/2022 1:44 PM EDT 5 Sprays fentaNYL 50 mcg/mL 25-100 mcg injection (SUBLIMAZE) 25-100 mcg, INTRAVENOUS, DIRECTED, Starting on Kaye 01/08/22 at 1430, Until Kaye 01/08/22 at 1829, DOSING DIRECTED BY PHYSICIAN FOR PROCEDURAL SEDATION ONLY, Intraprocedure Given 01/08/2022 1:52 PM EDT 50 mcg Given 01/08/2022 1:45 PM EDT 50 mcg lactated ringers iv infusion 30 mL/hr, INTRAVENOUS, CONTINUOUS, Starting on Kaye 01/08/22 at 1300, Until Kaye 01/08/22 at 1407, Preprocedure New Bag/Syringe/Bottle 01/08/2022 1:15 PM EDT 30 mL/hr 30 mL/hr midazolam (PF) 1-5 mg injection (VERSED) 1-5 mg, INTRAVENOUS, DIRECTED, Starting on Kaye 01/08/22 at 1430, Until Kaye 01/08/22 at 1829, DOSING DIRECTED BY PHYSICIAN FOR PROCEDURAL SEDATION ONLY, Intraprocedure Given 01/08/2022 1:48 PM EDT 1 mg Given 01/08/2022 1:45 PM EDT 3 mg ondansetron (PF) 4 mg injection (ZOFRAN) 4 mg, INTRAVENOUS, DIRECTED, Starting on Kaye 01/08/22 at 1430, Until Kaye 01/08/22 at 1829, DOSING DIRECTED BY PHYSICIAN FOR PROCEDURAL SEDATION ONLY, Intraprocedure Given 01/08/2022 1:53 PM EDT 4 mg Reason for Referral Specialty Diagnoses / Procedures Referred By Contac t Referred To Contact General Surgery Diagnoses Epigastric abdominal pain Procedures CONSULT TO GENERAL SURGERY OFFICE/OUTPATIENT [facility] 60 MINUTES Michael Puga, [address] [place] [address] Referral ID Status Reason Start Date Expiration Date Visits Requested Visits Authorized [id number] Authorized PCP Requested Referral 4 03/01/2025 1 1 Additional Source Comments <item><item> Privacy Markings (unrecogniz ed section and content) Section Author: Marcie Adamson PROHIBITION ON REDISCLOSURE OF CONFIDENTIAL INFORMATION This notice accompanies a disclosure of information concerning a client made to you with the consent of such client. Section Author: Marcie Adamson PROHIBITION ON REDISCLOSURE OF CONFIDENTIAL INFORMATION This notice accompanies a disclosure of information concerning a client made to you with the consent of such client. INFORMATION SOURCE (unrecogn ized section and content) DATE CREATED AUTHOR 12/28/2020 [facility] DATE CREATED AUTHOR AUTHOR'S ORGANIZ ATION 04/06/2024 [facility] DATE CREATED AUTHOR AUTHOR'S ORGANIZ ATION 10/28/2024 [facility] DATE CREATED AUTHOR AUTHOR'S ORGANIZ ATION 11/16/2024 [facility] DATE CREATED AUTHOR AUTHOR'S ORGANIZ ATION 11/26/2024 [facility] Source Comments (unrecognize d section and content) In the event this informatio n is protected by the Federal Confidentiality of Alcohol and Drug Abuse Patient Records regulations: The Federal rules restrict any use of the information to criminally investigate or prosecute any alcohol or drug abuse patient.[facility] the event this information is protected by the Federal Confidentiality of Alcohol and Drug Abuse Patient Records regulations: The Federal rules restrict any use of the information to criminally investigate or prosecute any alcohol or drug abuse patient.[facility] the event this information is protected by the Federal Confidentiality of Alcohol and Drug Abuse Patient Records regulations: The Federal rules restrict any use of the information to criminally investigate or prosecute any alcohol or drug abuse patient.[facility] Hospital[facility] the event this information is protected by the Federal Confidentiality of Alcohol and Drug Abuse Patient Records regulations: The Federal rules restrict any use of the information to criminally investigate or prosecute any alcohol or drug abuse patient.[facility]In the event this information is protected by the Federal Confidentiality of Alcohol and Drug Abuse Patient Records regulations: The Federal rules restrict any use of the information to criminally investigate or prosecute any alcohol or drug abuse patient.[facility] HospitalIn the event this information is protected by the Federal Confidentiality of Alcohol and Drug Abuse Patient Records regulations: The Federal rules restrict any use of the information to criminally investigate or prosecute any alcohol or drug abuse patient.[facility] HospitalIn the event this information is protected by the Federal Confidentiality of Alcohol and Drug Abuse Patient Records regulations: The Federal rules restrict any use of the information to criminally investigate or prosecute any alcohol or drug abuse patient.[facility] HospitalIn the event this information is protected by the Federal Confidentiality of Alcohol and Drug Abuse Patient Records regulations: The Federal rules restrict any use of the information to criminally investigate or prosecute any alcohol or drug abuse patient.[facility] HospitalIn the event this information is protected by the Federal Confidentiality of Alcohol and Drug Abuse Patient Records regulations: The Federal rules restrict any use of the information to criminally investigate or prosecute any alcohol or drug abuse patient.[facility] HospitalIn the event this information is protected by the Federal Confidentiality of Alcohol and Drug Abuse Patient Records regulations: The Federal rules restrict any use of the information to criminally investigate or prosecute any alcohol or drug abuse patient.[facility] HospitalIn the event this information is protected by the Federal Confidentiality of Alcohol and Drug Abuse Patient Records regulations: The Federal rules restrict any use of the information to criminally investigate or prosecute any alcohol or drug abuse patient.[facility] HospitalIn the event this information is protected by the Federal Confidentiality of Alcohol and Drug Abuse Patient Records regulations: The Federal rules restrict any use of the information to criminally investigate or prosecute any alcohol or drug abuse patient.[facility] HospitalIn the event this information is protected by the Federal Confidentiality of Alcohol and Drug Abuse Patient Records regulations: The Federal rules restrict any use of the information to criminally investigate or prosecute any alcohol or drug abuse patient.[facility] HospitalIn the event this information is protected by the Federal Confidentiality of Alcohol and Drug Abuse Patient Records regulations: The Federal rules restrict any use of the information to criminally investigate or prosecute any alcohol or drug abuse patient.[facility] HospitalIn the event this information is protected by the Federal Confidentiality of Alcohol and Drug Abuse Patient Records regulations: The Federal rules restrict any use of the information to criminally investigate or prosecute any alcohol or drug abuse patient.[facility] HospitalIn the event this information is protected by the Federal Confidentiality of Alcohol and Drug Abuse Patient Records regulations: The Federal rules restrict any use of the information to criminally investigate or prosecute any alcohol or drug abuse patient.[facility] HospitalIn the event this information is protected by the Federal Confidentiality of Alcohol and Drug Abuse Patient Records regulations: The Federal rules restrict any use of the information to criminally investigate or prosecute any alcohol or drug abuse patient.[facility] HospitalIn the event this information is protected by the Federal Confidentiality of Alcohol and Drug Abuse Patient Records regulations: The Federal rules restrict any use of the information to criminally investigate or prosecute any alcohol or drug abuse patient.[facility] HospitalIn the event this information is protected by the Federal Confidentiality of Alcohol and Drug Abuse Patient Records regulations: The Federal rules restrict any use of the information to criminally investigate or prosecute any alcohol or drug abuse patient.[facility] HospitalIn the event this information is protected by the Federal Confidentiality of Alcohol and Drug Abuse Patient Records regulations: The Federal rules restrict any use of the information to criminally investigate or prosecute any alcohol or drug abuse patient.[facility] HospitalIn the event this information is protected by the Federal Confidentiality of Alcohol and Drug Abuse Patient Records regulations: The Federal rules restrict any use of the information to criminally investigate or prosecute any alcohol or drug abuse patient.[facility] HospitalIn the event this information is protected by the Federal Confidentiality of Alcohol and Drug Abuse Patient Records regulations: The Federal rules restrict any use of the information to criminally investigate or prosecute any alcohol or drug abuse patient.[facility] HospitalIn the event this information is protected by the Federal Confidentiality of Alcohol and Drug Abuse Patient Records regulations: The Federal rules restrict any use of the information to criminally investigate or prosecute any alcohol or drug abuse patient.[facility]In the event this information is protected by the Federal Confidentiality of Alcohol and Drug Abuse Patient Records regulations: The Federal rules restrict any use of the information to criminally investigate or prosecute any alcohol or drug abuse patient.[facility] HospitalIn the event this information is protected by the Federal Confidentiality of Alcohol and Drug Abuse Patient Records regulations: The Federal rules restrict any use of the information to criminally investigate or prosecute any alcohol or drug abuse patient.[facility] HospitalIn the event this information is protected by the Federal Confidentiality of Alcohol and Drug Abuse Patient Records regulations: The Federal rules restrict any use of the information to criminally investigate or prosecute any alcohol or drug abuse patient.[facility] HospitalIn the event this information is protected by the Federal Confidentiality of Alcohol and Drug Abuse Patient Records regulations: The Federal rules restrict any use of the information to criminally investigate or prosecute any alcohol or drug abuse patient.[facility] HospitalIn the event this information is protected by the Federal Confidentiality of Alcohol and Drug Abuse Patient Records regulations: The Federal rules restrict any use of the information to criminally investigate or prosecute any alcohol or drug abuse patient.[facility] HospitalIn the event this information is protected by the Federal Confidentiality of Alcohol and Drug Abuse Patient Records regulations: The Federal rules restrict any use of the information to criminally investigate or prosecute any alcohol or drug abuse patient.[facility] HospitalIn the event this information is protected by the Federal Confidentiality of Alcohol and Drug Abuse Patient Records regulations: The Federal rules restrict any use of the information to criminally investigate or prosecute any alcohol or drug abuse patient.[facility] HospitalIn the event this information is protected by the Federal Confidentiality of Alcohol and Drug Abuse Patient Records regulations: The Federal rules restrict any use of the information to criminally investigate or prosecute any alcohol or drug abuse patient.[facility] HospitalIn the event this information is protected by the Federal Confidentiality of Alcohol and Drug Abuse Patient Records regulations: The Federal rules restrict any use of the information to criminally investigate or prosecute any alcohol or drug abuse patient.[facility] HospitalIn the event this information is protected by the Federal Confidentiality of Alcohol and Drug Abuse Patient Records regulations: The Federal rules restrict any use of the information to criminally investigate or prosecute any alcohol or drug abuse patient.[facility] HospitalIn the event this information is protected by the Federal Confidentiality of Alcohol and Drug Abuse Patient Records regulations: The Federal rules restrict any use of the information to criminally investigate or prosecute any alcohol or drug abuse patient.[facility] HospitalIn the event this information is protected by the Federal Confidentiality of Alcohol and Drug Abuse Patient Records regulations: The Federal rules restrict any use of the information to criminally investigate or prosecute any alcohol or drug abuse patient.[facility] HospitalIn the event this information is protected by the Federal Confidentiality of Alcohol and Drug Abuse Patient Records regulations: The Federal rules restrict any use of the information to criminally investigate or prosecute any alcohol or drug abuse patient.[facility] HospitalIn the event this information is protected by the Federal Confidentiality of Alcohol and Drug Abuse Patient Records regulations: The Federal rules restrict any use of the information to criminally investigate or prosecute any alcohol or drug abuse patient.[facility] HospitalIn the event this information is protected by the Federal Confidentiality of Alcohol and Drug Abuse Patient Records regulations: The Federal rules restrict any use of the information to criminally investigate or prosecute any alcohol or drug abuse patient.[facility] HospitalIn the event this information is protected by the Federal Confidentiality of Alcohol and Drug Abuse Patient Records regulations: The Federal rules restrict any use of the information to criminally investigate or prosecute any alcohol or drug abuse patient.[facility] HospitalIn the event this information is protected by the Federal Confidentiality of Alcohol and Drug Abuse Patient Records regulations: The Federal rules restrict any use of the information to criminally investigate or prosecute any alcohol or drug abuse patient.[facility] HospitalIn the event this information is protected by the Federal Confidentiality of Alcohol and Drug Abuse Patient Records regulations: The Federal rules restrict any use of the information to criminally investigate or prosecute any alcohol or drug abuse patient.[facility] HospitalIn the event this information is protected by the Federal Confidentiality of Alcohol and Drug Abuse Patient Records regulations: The Federal rules restrict any use of the information to criminally investigate or prosecute any alcohol or drug abuse patient.[facility] HospitalIn the event this information is protected by the Federal Confidentiality of Alcohol and Drug Abuse Patient Records regulations: The Federal rules restrict any use of the information to criminally investigate or prosecute any alcohol or drug abuse patient.[facility] HospitalIn the event this information is protected by the Federal Confidentiality of Alcohol and Drug Abuse Patient Records regulations: The Federal rules restrict any use of the information to criminally investigate or prosecute any alcohol or drug abuse patient.[facility] HospitalIn the event this information is protected by the Federal Confidentiality of Alcohol and Drug Abuse Patient Records regulations: The Federal rules restrict any use of the information to criminally investigate or prosecute any alcohol or drug abuse patient.[facility] HospitalIn the event this information is protected by the Federal Confidentiality of Alcohol and Drug Abuse Patient Records regulations: The Federal rules restrict any use of the information to criminally investigate or prosecute any alcohol or drug abuse patient.[facility] HospitalIn the event this information is protected by the Federal Confidentiality of Alcohol and Drug Abuse Patient Records regulations: The Federal rules restrict any use of the information to criminally investigate or prosecute any alcohol or drug abuse patient.[facility] HospitalIn the event this information is protected by the Federal Confidentiality of Alcohol and Drug Abuse Patient Records regulations: The Federal rules restrict any use of the information to criminally investigate or prosecute any alcohol or drug abuse patient.[facility] HospitalIn the event this information is protected by the Federal Confidentiality of Alcohol and Drug Abuse Patient Records regulations: The Federal rules restrict any use of the information to criminally investigate or prosecute any alcohol or drug abuse patient.[facility] HospitalIn the event this information is protected by the Federal Confidentiality of Alcohol and Drug Abuse Patient Records regulations: The Federal rules restrict any use of the information to criminally investigate or prosecute any alcohol or drug abuse patient.[facility] HospitalIn the event this information is protected by the Federal Confidentiality of Alcohol and Drug Abuse Patient Records regulations: The Federal rules restrict any use of the information to criminally investigate or prosecute any alcohol or drug abuse patient.[facility] HospitalIn the event this information is protected by the Federal Confidentiality of Alcohol and Drug Abuse Patient Records regulations: The Federal rules restrict any use of the information to criminally investigate or prosecute any alcohol or drug abuse patient.[facility] HospitalIn the event this information is protected by the Federal Confidentiality of Alcohol and Drug Abuse Patient Records regulations: The Federal rules restrict any use of the information to criminally investigate or prosecute any alcohol or drug abuse patient.[facility] HospitalIn the event this information is protected by the Federal Confidentiality of Alcohol and Drug Abuse Patient Records regulations: The Federal rules restrict any use of the information to criminally investigate or prosecute any alcohol or drug abuse patient.[facility] HospitalIn the event this information is protected by the Federal Confidentiality of Alcohol and Drug Abuse Patient Records regulations: The Federal rules restrict any use of the information to criminally investigate or prosecute any alcohol or drug abuse patient.[facility] HospitalIn the event this information is protected by the Federal Confidentiality of Alcohol and Drug Abuse Patient Records regulations: The Federal rules restrict any use of the information to criminally investigate or prosecute any alcohol or drug abuse patient.[facility] HospitalIn the event this information is protected by the Federal Confidentiality of Alcohol and Drug Abuse Patient Records regulations: The Federal rules restrict any use of the information to criminally investigate or prosecute any alcohol or drug abuse patient.[facility] HospitalIn the event this information is protected by the Federal Confidentiality of Alcohol and Drug Abuse Patient Records regulations: The Federal rules restrict any use of the information to criminally investigate or prosecute any alcohol or drug abuse patient.[facility] HospitalIn the event this information is protected by the Federal Confidentiality of Alcohol and Drug Abuse Patient Records regulations: The Federal rules restrict any use of the information to criminally investigate or prosecute any alcohol or drug abuse patient.[facility] HospitalIn the event this information is protected by the Federal Confidentiality of Alcohol and Drug Abuse Patient Records regulations: The Federal rules restrict any use of the information to criminally investigate or prosecute any alcohol or drug abuse patient.[facility] HospitalIn the event this information is protected by the Federal Confidentiality of Alcohol and Drug Abuse Patient Records regulations: The Federal rules restrict any use of the information to criminally investigate or prosecute any alcohol or drug abuse patient.[facility] HospitalIn the event this information is protected by the Federal Confidentiality of Alcohol and Drug Abuse Patient Records regulations: The Federal rules restrict any use of the information to criminally investigate or prosecute any alcohol or drug abuse patient.[facility] HospitalIn the event this information is protected by the Federal Confidentiality of Alcohol and Drug Abuse Patient Records regulations: The Federal rules restrict any use of the information to criminally investigate or prosecute any alcohol or drug abuse patient.[facility] HospitalIn the event this information is protected by the Federal Confidentiality of Alcohol and Drug Abuse Patient Records regulations: The Federal rules restrict any use of the information to criminally investigate or prosecute any alcohol or drug abuse patient.[facility] HospitalIn the event this information is protected by the Federal Confidentiality of Alcohol and Drug Abuse Patient Records regulations: The Federal rules restrict any use of the information to criminally investigate or prosecute any alcohol or drug abuse patient.[facility] HospitalIn the event this information is protected by the Federal Confidentiality of Alcohol and Drug Abuse Patient Records regulations: The Federal rules restrict any use of the information to criminally investigate or prosecute any alcohol or drug abuse patient.[facility] HospitalIn the event this information is protected by the Federal Confidentiality of Alcohol and Drug Abuse Patient Records regulations: The Federal rules restrict any use of the information to criminally investigate or prosecute any alcohol or drug abuse patient.[facility] HospitalIn the event this information is protected by the Federal Confidentiality of Alcohol and Drug Abuse Patient Records regulations: The Federal rules restrict any use of the information to criminally investigate or prosecute any alcohol or drug abuse patient.[facility] HospitalIn the event this information is protected by the Federal Confidentiality of Alcohol and Drug Abuse Patient Records regulations: The Federal rules restrict any use of the information to criminally investigate or prosecute any alcohol or drug abuse patient.[facility] HospitalIn the event this information is protected by the Federal Confidentiality of Alcohol and Drug Abuse Patient Records regulations: The Federal rules restrict any use of the information to criminally investigate or prosecute any alcohol or drug abuse patient.[facility] HospitalIn the event this information is protected by the Federal Confidentiality of Alcohol and Drug Abuse Patient Records regulations: The Federal rules restrict any use of the information to criminally investigate or prosecute any alcohol or drug abuse patient.[facility] HospitalIn the event this information is protected by the Federal Confidentiality of Alcohol and Drug Abuse Patient Records regulations: The Federal rules restrict any use of the information to criminally investigate or prosecute any alcohol or drug abuse patient.[facility] HospitalIn the event this information is protected by the Federal Confidentiality of Alcohol and Drug Abuse Patient Records regulations: The Federal rules restrict any use of the information to criminally investigate or prosecute any alcohol or drug abuse patient.[facility]In the event this information is protected by the Federal Confidentiality of Alcohol and Drug Abuse Patient Records regulations: The Federal rules restrict any use of the information to criminally investigate or prosecute any alcohol or drug abuse patient.[facility] HospitalIn the event this information is protected by the Federal Confidentiality of Alcohol and Drug Abuse Patient Records regulations: The Federal rules restrict any use of the information to criminally investigate or prosecute any alcohol or drug abuse patient.[facility] HospitalIn the event this information is protected by the Federal Confidentiality of Alcohol and Drug Abuse Patient Records regulations: The Federal rules restrict any use of the information to criminally investigate or prosecute any alcohol or drug abuse patient.[facility]In the event this information is protected by the Federal Confidentiality of Alcohol and Drug Abuse Patient Records regulations: The Federal rules restrict any use of the information to criminally investigate or prosecute any alcohol or drug abuse patient.[facility] HospitalIn the event this information is protected by the Federal Confidentiality of Alcohol and Drug Abuse Patient Records regulations: The Federal rules restrict any use of the information to criminally investigate or prosecute any alcohol or drug abuse patient.[facility] HospitalIn the event this information is protected by the Federal Confidentiality of Alcohol and Drug Abuse Patient Records regulations: The Federal rules restrict any use of the information to criminally investigate or prosecute any alcohol or drug abuse patient.[facility] HospitalIn the event this information is protected by the Federal Confidentiality of Alcohol and Drug Abuse Patient Records regulations: The Federal rules restrict any use of the information to criminally investigate or prosecute any alcohol or drug abuse patient.[facility]In the event this information is protected by the Federal Confidentiality of Alcohol and Drug Abuse Patient Records regulations: The Federal rules restrict any use of the information to criminally investigate or prosecute any alcohol or drug abuse patient.[facility] HospitalIn the event this information is protected by the Federal Confidentiality of Alcohol and Drug Abuse Patient Records regulations: The Federal rules restrict any use of the information to criminally investigate or prosecute any alcohol or drug abuse patient.[facility] HospitalIn the event this information is protected by the Federal Confidentiality of Alcohol and Drug Abuse Patient Records regulations: The Federal rules restrict any use of the information to criminally investigate or prosecute any alcohol or drug abuse patient.[facility]In the event this information is protected by the Federal Confidentiality of Alcohol and Drug Abuse Patient Records regulations: The Federal rules restrict any use of the information to criminally investigate or prosecute any alcohol or drug abuse patient.[facility] HospitalIn the event this information is protected by the Federal Confidentiality of Alcohol and Drug Abuse Patient Records regulations: The Federal rules restrict any use of the information to criminally investigate or prosecute any alcohol or drug abuse patient.[facility] HospitalIn the event this information is protected by the Federal Confidentiality of Alcohol and Drug Abuse Patient Records regulations: The Federal rules restrict any use of the information to criminally investigate or prosecute any alcohol or drug abuse patient.[facility] HospitalIn the event this information is protected by the Federal Confidentiality of Alcohol and Drug Abuse Patient Records regulations: The Federal rules restrict any use of the information to criminally investigate or prosecute any alcohol or drug abuse patient.[facility] HospitalIn the event this information is protected by the Federal Confidentiality of Alcohol and Drug Abuse Patient Records regulations: The Federal rules restrict any use of the information to criminally investigate or prosecute any alcohol or drug abuse patient.[facility] HospitalIn the event this information is protected by the Federal Confidentiality of Alcohol and Drug Abuse Patient Records regulations: The Federal rules restrict any use of the information to criminally investigate or prosecute any alcohol or drug abuse patient.[facility] HospitalIn the event this information is protected by the Federal Confidentiality of Alcohol and Drug Abuse Patient Records regulations: The Federal rules restrict any use of the information to criminally investigate or prosecute any alcohol or drug abuse patient.[facility] HospitalIn the event this information is protected by the Federal Confidentiality of Alcohol and Drug Abuse Patient Records regulations: The Federal rules restrict any use of the information to criminally investigate or prosecute any alcohol or drug abuse patient.[facility] Hospital[facility] the event this information is protected by the Federal Confidentiality of Alcohol and Drug Abuse Patient Records regulations: The Federal rules restrict any use of the information to criminally investigate or prosecute any alcohol or drug abuse patient.[facility] HospitalIn the event this information is protected by the Federal Confidentiality of Alcohol and Drug Abuse Patient Records regulations: The Federal rules restrict any use of the information to criminally investigate or prosecute any alcohol or drug abuse patient.[facility] HospitalIn the event this information is protected by the Federal Confidentiality of Alcohol and Drug Abuse Patient Records regulations: The Federal rules restrict any use of the information to criminally investigate or prosecute any alcohol or drug abuse patient.[facility] HospitalIn the event this information is protected by the Federal Confidentiality of Alcohol and Drug Abuse Patient Records regulations: The Federal rules restrict any use of the information to criminally investigate or prosecute any alcohol or drug abuse patient.[facility] HospitalIn the event this information is protected by the Federal Confidentiality of Alcohol and Drug Abuse Patient Records regulations: The Federal rules restrict any use of the information to criminally investigate or prosecute any alcohol or drug abuse patient.[facility] HospitalIn the event this information is protected by the Federal Confidentiality of Alcohol and Drug Abuse Patient Records regulations: The Federal rules restrict any use of the information to criminally investigate or prosecute any alcohol or drug abuse patient.[facility] HospitalIn the event this information is protected by the Federal Confidentiality of Alcohol and Drug Abuse Patient Records regulations: The Federal rules restrict any use of the information to criminally investigate or prosecute any alcohol or drug abuse patient.[facility] Reason for Visit (unrecogniz ed section and content) Reason Comments PT Eval Specialty Diagnoses / Procedures Referred By Contac t Referred To Contact Physical Therapy / PHYSICAL THERAPY Diagnoses CONSULT/WEAKNESS Procedures NEW RS PT ORTH Arlene Bruce MD [address] [facility] [address] [place] [address] Phone: tel: fax: Sarah Merchant, PT [address] [address] Phone: tel: Referral ID Status Reason Start Date Expiration Date V isits Requested Visits Authorized [id number] Authorized 09/07/2024 05/02/2025 99 99 Reason Comments Physical Therapy Specialty Diagnoses / Procedures Referred By Contac t Referred To Contact Physical Therapy / PHYSICAL THERAPY Diagnoses Right knee Procedures NEW RS PT ORTH Geeta Stanton PA-C [address] [place] [address] Sarah Merchant, PT [address] [place] [address] Referral ID Status Reason Start Date Expiration Date V isits Requested Visits Authorized [id number] Authorized 11/15/2023 05/02/2024 99 99 Reason Comments PT Progress Note Reason Comments Refill Request Reason Comments Results Reason Comments UTI burning, urgency, fr equency, pain x3 days Reason Comments Consult Increased GERD Reason Comments Pacemaker Check Reason Comments Follow Up Follow up EGD Reason Onset Date Comments Follow Up 2 months Immunizations 02/16/2022 Flu vaccination Reason Comments Follow Up 2 months Reason Comments Patient Question Reason Onset Date Comments Population Health Navigation Outreach 06/02/2022 Healthy at Home - [facility] Reason Comments Extreme fatigue Reason Comments Fatigue Extreme fatigue , so b and sleeping a lot. For a couple months Reason Comments Medication Problem Reason Onset Date Comments Refill Request 06/29/2022 Reason Onset Date Comments Refill Request 09/29/2022 Reason Comments Follow Up Reason Comments Spirometry Specialty Diagnoses / Procedures Referred By Colton bond Referred To Contact [facility] Diagnoses WELCH (dyspnea on exertion) Procedures SPIROMETRY - BASELINE AND POST DILATOR BRNCDILAT RSPSE SPMTRY PRE&POST-BRNCDILAT ADMN Michael Puga L, DO [address] [place] [address] Respiratory [place] [address] [place] [address] Referral ID Status Reason Start Date Expiration Date V isits Requested Visits Authorized [id number] Closed Auto-Generate d Referral 12/22/2022 01/21/2024 1 1 Reason Comments Orders Reason Onset Date Comments F/U 3 Month Immunizations 04/05/2023 Flu vaccination Reason Onset Date Comments Transition Of Care 10/04/2023 TCM / Manny DC //OON Reason Comments HH: orders, update, medications Reason Onset Date Comments Transition Of Care 10/11/2023 TCM OON follo w up Reason Comments Transition Of Care Reason Onset Date Comments Refill Request 10/18/2023 Reason Comments Orders Medication Question Reason Comments Follow Up Head and chest conge stion cough x 5 days Reason Comments Wheelchair order Reason Onset Date Comments F/U 3 Month Immunizations 03/01/2024 Flu vaccination Reason Comments Consult EGD consultation, ep igastric abdominal pain. Specialty Diagnoses / Procedures Referred By Contac t Referred To Contact General Surgery Diagnoses Epigastric abdominal pain Procedures CONSULT TO GENERAL SURGERY OFFICE/OUTPATIENT NEW HIGH MDM 60 MINUTES Michael Puga, DO [address] [place] [address] Referral ID Status Reason Start Date Expiration Date V isits Requested Visits Authorized [id number] Closed PCP Requested Referral 03/01/2024 03/01/2025 1 1 Reason Comments Consult Reason Comments 03-31-2024 EGD hay Reason Comments Follow Up EGD Reason Comments Leg Pain Reason Comments verbal orders Reason Onset Date Comments Transition Of Care 05/04/2024 Reason Comments Home Health Plan of Care Reason Onset Date Comments Refill Request 05/04/2024 Reason Comments Home Health Point of Care Results Reason Comments Patient Update Reason Comments Transition Of Care Was i wfor chf flae was discharged on 05/02/24 Reason Comments Medication Update Orders Reason Comments Patient Update Medication Question Reason Comments Results, Lab Reason Comments Follow Up labs Reason Comments Medication Question Reason Comments Medication Follow-up Increase paxil Reason Comments 6 Month Exam Reason Comments Problem with order Reason Onset Date Comments Refill Request 09/11/2024 Reason Comments report tremor is worse Reason Onset Date Comments Refill Request 11/27/2024 Care Teams (unrecognized sec tion and content) Range Ecologist Relationship Specialty Start Date End Date Michael Puga DO [address] [place] [address] PCP - General Family Practice 05/06/16 Range Ecologist Relationship Specialty Start Date End Date Michael Puga DO [address] [place] [address] PCP - General Family Practice 05/06/16 Range Ecologist Relationship Specialty Start Date End Date Michael Puga DO [address] [place] [address] PCP - General Family Practice 05/06/16 Range Ecologist Relationship Specialty Start Date End Date Michael Puga DO [address] [place], [place] [id number] PCP - General Family Practice 05/06/16 Range Ecologist Relationship Specialty Start Date End Date Michael Puga, DO [address] [place] [address] PCP - General Family Practice 05/06/16 Range Ecologist Relationship Specialty Start Date End Date Michael Puga, DO [address] [place] [address] PCP - General Family Practice 05/06/16 Range Ecologist Relationship Specialty Start Date End Date Michael Puga, DO [address] [place] [address] PCP - General Family Practice 05/06/16 Range Ecologist Relationship Specialty Start Date End Date Michael Puga, DO [address] [place] [address] PCP - General Family Medicine 05/06/16 Range Ecologist Relationship Specialty Start Date End Date Michael Puga, DO [address] [place] [address] PCP - General Family Medicine 05/06/16 Range Ecologist Relationship Specialty Start Date End Date Michael Puga, DO [address] [place] [address] PCP - General Family Medicine 05/06/16 Range Ecologist Relationship Specialty Start Date End Date Michael Puga, DO [address] [place] [address] PCP - General Family Medicine 05/06/16 Range Ecologist Relationship Specialty Start Date End Date Michael Puga, DO [address] [place] [address] PCP - General Family Medicine 05/06/16 Range Ecologist Relationship Specialty Start Date End Date Michael Puga, DO [address] [place] [address] PCP - General Family Medicine 05/06/16 Range Ecologist Relationship Specialty Start Date End Date Michael Puga DO [address] [place] [address] PCP - General Family Medicine 05/06/16 Range Ecologist Relationship Specialty Start Date End Date Michael Puga DO [address] [place] [address] PCP - General Family Medicine 05/06/16 Range Ecologist Relationship Specialty Start Date End Date Michael Puga DO [address] [place] [address] PCP - General Family Medicine 05/06/16 Range Ecologist Relationship Specialty Start Date End Date Michael Puga DO [address] [place] [address] PCP - General Family Medicine 05/06/16 Range Ecologist Relationship Specialty Start Date End Date Michael Puga DO [address] [place] [address] PCP - General Family Medicine 05/06/16 Range Ecologist Relationship Specialty Start Date End Date Michael Puga DO [address] [place] [address] PCP - General Family Medicine 05/06/16 Range Ecologist Relationship Specialty Start Date End Date Michael Puga DO [address] [place] [address] PCP - General Family Medicine 05/06/16 Range Ecologist Relationship Specialty Start Date End Date Michael Puga DO [address] [place] [address] PCP - General Family Medicine 05/06/16 Range Ecologist Relationship Specialty Start Date End Date Michael Puga DO [address] [facility] [place] [address] PCP - General Family Medicine 05/06/16 Range Ecologist Relationship Specialty Start Date End Date Michael Puga DO [address] [facility] [place] [address] PCP - General Family Medicine 05/06/16 Isabella Michel, GLYNN [address] [place] [address] Primary Care Diamond Wheel Molder 10/04/23 Range Ecologist Relationship Specialty Start Date End Date Michael Puga DO [address] [place] [address] PCP - General Family Medicine 05/06/16 Isabella Michel, GLYNN [address] [place] [address] Primary Care Diamond Wheel Molder 10/04/23 Range Ecologist Relationship Specialty Start Date End Date Michael Puga DO [address] [place] [address] PCP - General Family Medicine 05/06/16 Isabella Michel, GLYNN [address] [place] [address] Primary Care Diamond Wheel Molder 10/04/23 Range Ecologist Relationship Specialty Start Date End Date Michael Puga DO [address] [facility] [place] [address] PCP - General Family Medicine 05/06/16 Isabella Michel, GLYNN [address] [place] [address] Primary Care Diamond Wheel Molder 10/04/23 Range Ecologist Relationship Specialty Start Date End Date Michael Puga DO [address] [place] [address] PCP - General Family Medicine 05/06/16 Isabella Michel, GLYNN [address] [place] [address] Primary Care Diamond Wheel Molder 10/04/23 Range Ecologist Relationship Specialty Start Date End Date Michael Puga DO [address] [place] [address] PCP - General Family Medicine 05/06/16 Isabella Michel, GLYNN [address] [place] [address] Primary Care Diamond Wheel Molder 10/04/23 Range Ecologist Relationship Specialty Start Date End Date Michael Puga DO [address] [place] [address] PCP - General Family Medicine 05/06/16 Range Ecologist Relationship Specialty Start Date End Date Michael Puga DO [address] [place] [address] PCP - General Family Medicine 05/06/16 Range Ecologist Relationship Specialty Start Date End Date Michael Puga DO [address] [place] [address] PCP - General Family Medicine 05/06/16 Range Ecologist Relationship Specialty Start Date End Date Michael Puga DO [address] [place] [address] PCP - General Family Medicine 05/06/16 Range Ecologist Relationship Specialty Start Date End Date Michael Puga DO [address] [place] [address] PCP - General Family Medicine 05/06/16 Range Ecologist Relationship Specialty Start Date End Date Michael Puga DO [address] [facility] [place] [address] PCP - General Family Medicine 05/06/16 Range Ecologist Relationship Specialty Start Date End Date Michael Puga DO [address] [facility] [place] [address] PCP - General Family Medicine 05/06/16 Range Ecologist Relationship Specialty Start Date End Date Michael Puga DO [address] [place] [address] PCP - General Family Medicine 05/06/16 Range Ecologist Relationship Specialty Start Date End Date Michael Puga DO [address] [facility] [place] [address] PCP - General Family Medicine 05/06/16 Range Ecologist Relationship Specialty Start Date End Date Michael Puga DO [address] [facility] [place] [address] PCP - General Family Medicine 05/06/16 Range Ecologist Relationship Specialty Start Date End Date Michael Puga DO [address] [facility] [place] [address] PCP - General Family Medicine 05/06/16 Range Ecologist Relationship Specialty Start Date End Date Michael Puga DO [address] [facility] [place] [address] PCP - General Family Medicine 05/06/16 Range Ecologist Relationship Specialty Start Date End Date Michael Puga DO [address] [facility] [place] [address] PCP - General Family Medicine 05/06/16 Range Ecologist Relationship Specialty Start Date End Date Michael Puga DO [address] [place] [address] PCP - General Family Medicine 05/06/16 Range Ecologist Relationship Specialty Start Date End Date Michael Puga DO [address] [facility] [place] [address] PCP - General Family Medicine 05/06/16 Range Ecologist Relationship Specialty Start Date End Date Michael Puga DO [address] [facility] [place] [address] PCP - General Family Medicine 05/06/16 Range Ecologist Relationship Specialty Start Date End Date Michael Puga DO [address] [facility] [place] [address] PCP - General Family Medicine 05/06/16 Range Ecologist Relationship Specialty Start Date End Date Michael Puga DO [address] [facility] [place] [address] PCP - General Family Medicine 05/06/16 Range Ecologist Relationship Specialty Start Date End Date Michael Puga DO [address] [facility] [place] [address] PCP - General Family Medicine 05/06/16 Key Portillo APRN.HATCHERY MAN [address] [place] [address] Rn Unit Manager Family Medicine 04/09/24 Asia Rosales APRN.HATCHERY MAN [address] [place] [address] Rn Unit Manager Family [facility] 04/09/24 Range Ecologist Relationship Specialty Start Date End Date Michael Puga DO [address] [place] [address] PCP - General Family Medicine 05/06/16 Key Portillo, MANAGER UTILITY.HATCHERY MAN [address] [place] [address] Rn Unit Manager Family Medicine 04/09/24 Asia Rosales, MANAGER UTILITY.HATCHERY MAN [address] [place] [address] [facility] 04/09/24 Range Ecologist Relationship Specialty Start Date End Date Michael Puga DO [address] [place] [address] PCP - General Family Medicine 05/06/16 Key Portillo, MANAGER UTILITY.HATCHERY MAN [address] [place] [address] Rn Unit Manager Family [facility] 04/09/24 Asia Rosales, MANAGER UTILITY.HATCHERY MAN [address] [place] [address] [facility] 04/09/24 Range Ecologist Relationship Specialty Start Date End Date Michael Puga DO [address] [place] [address] PCP - General Family Medicine 05/06/16 Key Portillo, MANAGER UTILITY.HATCHERY MAN [address] [place] [address] Rn Unit Manager Family [facility] 04/09/24 Asia Rosales, MANAGER UTILITY.HATCHERY MAN [address] [place] [address] [facility] Medicine 04/09/24 Range Ecologist Relationship Specialty Start Date End Date Michael Puga DO [address] [place] [address] PCP - General Family Medicine 05/06/16 Key Portillo, MANAGER UTILITY.HATCHERY MAN [address] [place] [address] [facility] 04/09/24 Asia Rosales, MANAGER UTILITY.HATCHERY MAN [address] [place] [address] [facility] 04/09/24 Range Ecologist Relationship Specialty Start Date End Date Michael Puga DO [address] [place] [address] PCP - General Family Medicine 05/06/16 Key Portillo, MANAGER UTILITY.HATCHERY MAN [address] [place] [address] [facility] Family Medicine 04/09/24 Asia Rosales, MANAGER UTILITY.HATCHERY MAN [address] [place] [address] [facility] Medicine 04/09/24 Range Ecologist Relationship Specialty Start Date End Date Michael Puga DO [address] [place] [address] PCP - General Family Medicine 05/06/16 Key Portillo, MANAGER UTILITY.HATCHERY MAN [address] [place] [address] [facility] 04/09/24 Asia Rosales, MANAGER UTILITY.HATCHERY MAN [address] [place] [address] [facility]n [facility] 04/09/24 Range Ecologist Relationship Specialty Start Date End Date Michael Puga DO [address] [place] [address] PCP - General Family Medicine 05/06/16 Key Portillo, MANAGER UTILITY.HATCHERY MAN [address] [facility] [place] [address] [facility] 04/09/24 ConnieAsia, MANAGER UTILITY.HATCHERY MAN [address] [place] [address] [facility] 04/09/24 Range Ecologist Relationship Specialty Start Date End Date Michael Puga DO [address] [place] [address] PCP - General Family Medicine 05/06/16 Key Portillo, MANAGER UTILITY.HATCHERY MAN [address] [facility] [place] [address] [facility] 04/09/24 Asia Rosales, MANAGER UTILITY.HATCHERY MAN [address] [place] [address] [facility] 04/09/24 Range Ecologist Relationship Specialty Start Date End Date Michael Puga DO [address] [place] [address] PCP - General Family Medicine 05/06/16 Key Portillo, MANAGER UTILITY.HATCHERY MAN [address] [place] [address] Rn Unit Manager Family Medicine 04/09/24 ConnieAsia, MANAGER UTILITY.HATCHERY MAN [address] [place] [address] Rn Unit Manager Family [facility] 04/09/24 Range Ecologist Relationship Specialty Start Date End Date Michael Puga DO [address] [place] [address] PCP - General Family Medicine 05/06/16 Key Portillo, MANAGER UTILITY.HATCHERY MAN [address] [place] [address] Rn Unit Manager Family [facility] 04/09/24 Asia Rosales, MANAGER UTILITY.HATCHERY MAN [address] [place] [address] Rn Unit Manager Family [facility] 04/09/24 Range Ecologist Relationship Specialty Start Date End Date Michael Puga DO [address] [place] [address] PCP - General Family Medicine 05/06/16 Key Portillo, MANAGER UTILITY.HATCHERY MAN [address] [place] [address] Rn Unit Manager Family Medicine 04/09/24 Asia Rosales, MANAGER UTILITY.HATCHERY MAN [address] [place] [address] Rn Unit Manager Family Medicine 04/09/24 Team Status: Active Member Role Status Dates Dr. Michael Puga DO Primary Care Provider Active Team Status: Inactive Member Role Status Dates Dr. Michael Puga DO Primary Care Provider Active Start: 2024 End: 2024 Dr. Gallo Hickey MD Attending Provider Active S tart: 2024 End: 2024 Dr. Gallo Hickey MD Referring Provider Active S tart: 2024 End: 2024 Team Status: Inactive Member Role Status Dates Dr. Michael Puga DO Primary Care Provider Active Start: April 30, 2024 End: May 02, 2024 Dr. Aravind Recio DO Emergency Provider Active Start: April 30, 2024 End: May 02, 2024 Dr. Susan Duran MD Admit Provider Active St art: April 30, 2024 End: May 02, 2024 Dr. Susan Duran MD Other Provider Active St art: April 30, 2024 End: May 02, 2024 Dr. Jonny Vicente MD Attending Provider Active Start: April 30, 2024 End: May 02, 2024 Team Status: Active Member Role Status Dates Dr. Michael Puga DO Primary Care Provider Active Start: April 30, 2024 End: April 30, 2024 Dr. Gallo Hickey MD Attending Provider Active S tart: April 30, 2024 End: April 30, 2024 Dr. Gallo Hickey MD Referring Provider Active S tart: April 30, 2024 End: April 30, 2024 Team Status: Active Member Role Status Dates Dr. Michael Puga DO Primary Care Provider Active Start: May 01, 2024 Dr. Aravind Recio DO Emergency Provider Active Start: May 01, 2024 Dr. Susan Duran MD Admit Provider Active St art: May 01, 2024 Dr. Susan Duran MD Other Provider Active St art: May 01, 2024 Dr. Jonny Vicente MD Attending Provider Active Start: May 01, 2024 Dr. Jonny Vicente MD Other Provider Active Start: May 01, 2024 Team Status: Active Member Role Status Dates Dr. Michael Puga DO Primary Care Provider Active Start: May 02, 2024 Dr. Aravind Recio DO Emergency Provider Active Start: May 02, 2024 Dr. Susan Duran MD Admit Provider Active St art: May 02, 2024 Dr. Susan Duran MD Other Provider Active St art: May 02, 2024 Dr. Jonny Vicente MD Attending Provider Active Start: May 02, 2024 Dr. Jonny Vicente MD Other Provider Active Start: May 02, 2024 Team Status: Inactive Member Role Status Dates Dr. Michael Puga DO Primary Care Provider Active Start: May 25, 2024 End: May 25, 2024 Dr. Michael Puga DO Attending Provider Active Start: May 25, 2024 End: May 25, 2024 Dr. Michael Puga DO Referring Provider Active Start: May 25, 2024 End: May 25, 2024 Team Status: Inactive Member Role Status Dates Dr. Michael Puga DO Primary Care Provider Active Start: June 01, 2024 End: June 01, 2024 Dr. Gallo Hickey MD Attending Provider Active S tart: June 01, 2024 End: June 01, 2024 Team Status: Inactive Member Role Status Dates Dr. Michael Puga DO Primary Care Provider Active Start: June 01, 2024 End: June 01, 2024 Dr. Gallo Hickey MD Attending Provider Active S tart: June 01, 2024 End: June 01, 2024 Dr. Gallo Hickey MD Referring Provider Active S tart: June 01, 2024 End: June 01, 2024 Team Status: Inactive Member Role Status Dates Dr. Michael Puga DO Primary Care Provider Active Start: June 01, 2024 End: June 01, 2024 Dr. Michael Puga DO Referring Provider Active Start: June 01, 2024 End: June 01, 2024 Anabel Horne PA, PA Attending Provider Active Start: June 01, 2024 End: June 01, 2024 Team Status: Inactive Member Role Status Dates Dr. Michael Puga DO Primary Care Provider Active Start: June 02, 2024 End: June 02, 2024 Dr. Michael Puga DO Attending Provider Active Start: June 02, 2024 End: June 02, 2024 Dr. Michael Puga DO Referring Provider Active Start: June 02, 2024 End: June 02, 2024 Team Status: Active Member Role Status Dates Dr. Michael Puga DO Primary Care Provider Active Start: June 16, 2024 Dr. Michael Puga DO Attending Provider Active Start: June 16, 2024 Dr. Gallo Hickey MD Referring Provider Active S tart: June 16, 2024 Team Status: Inactive Member Role Status Dates Dr. Michael Puga DO Primary Care Provider Active Start: June 22, 2024 End: June 22, 2024 Anabel Horne PA, PA Attending Provider Active Start: June 22, 2024 End: June 22, 2024 Anabel Horne PA, PA Referring Provider Active Start: June 22, 2024 End: June 22, 2024 Team Status: Inactive Member Role Status Dates Dr. Michael Puga DO Primary Care Provider Active Start: July 03, 2024 End: July 03, 2024 Anabel Horne PA, PA Attending Provider Active Start: July 03, 2024 End: July 03, 2024 Anabel Horne PA, PA Referring Provider Active Start: July 03, 2024 End: July 03, 2024 Team Status: Active Member Role Status Dates Dr. Michael Puga DO Primary Care Provider Active Start: July 03, 2024 Dr. Virgil Her MD Attending Provider Active S tart: July 03, 2024 Anabel Horne PA, PA Referring Provider Active Start: July 03, 2024 Team Status: Active Member Role Status Dates Dr. Michael Puga DO Primary Care Provider Active Start: July 07, 2024 Anabel Horne PA, PA Attending Provider Active Start: July 07, 2024 Anabel Horne PA, PA Referring Provider Active Start: July 07, 2024 Team Status: Inactive Member Role Status Dates Dr. Michael Puga DO Primary Care Provider Active Start: July 07, 2024 End: July 07, 2024 Anabel ALVA PA Attending Provider Active Start: July 07, 2024 End: July 07, 2024 Anabel ALVA PA Referring Provider Active Start: July 07, 2024 End: July 07, 2024 Range Ecologist Relationship Specialty Start Date End Date Michael Puga DO [address] [facility] [place] [address] PCP - General Family Medicine 05/06/16 [facility] MANAGER UTILITY.HATCHERY MAN [address] [facility] [place] [address] Rn Unit Manager Family [facility] 04/09/24 Range Ecologist Relationship Specialty Start Date End Date Michael Puga DO [address] [facility] [place] [address] PCP - General Family Medicine 05/06/16 [facility], MANAGER UTILITY.HATCHERY MAN [address] [facility] [place] [address] Rn Unit Manager Family [facility] 04/09/24 Range Ecologist Relationship Specialty Start Date End Date Michael Puga DO [address] [facility] [place] [address] PCP - General Family Medicine 05/06/16 [facility], MANAGER UTILITY.HATCHERY MAN [address] [facility] [place] [address] [facility] 04/[facility]24 Range Ecologist Relationship Specialty Start Date End Date Michael Puga DO [address] [facility] [place] [address] PCP - General Family Medicine 05/06/16 [employer], MANAGER UTILITY.HATCHERY MAN [address] [place] [address] Rn Unit Manager Family [facility] 04/09/24 Range Ecologist Relationship Specialty Start Date End Date Michael Puga DO [address] [place] [address] PCP - General Family Medicine 05/06/16 [employer], MANAGER UTILITY.HATCHERY MAN [address] [place] [address] Rn Unit Manager Family [facility] 04/09/24 Range Ecologist Relationship Specialty Start Date End Date Michael Puga DO [address] [place] [address] PCP - General Family Medicine 05/06/16 Connie[employer], MANAGER UTILITY.HATCHERY MAN [address] [place] [address] Rn Unit Manager [facility] 04/09/24 Range Ecologist Relationship Specialty Start Date End Date Michael Puga DO [address] [place] [address] PCP - General Family Medicine 05/06/16 [employer], MANAGER UTILITY.HATCHERY MAN [address] [place] [address] [facility]n [facility] 04/09/24 Range Ecologist Relationship Specialty Start Date End Date Michael Puga DO [address] [facility] [address] PCP - General Family Medicine 05/06/16 [employer], MANAGER UTILITY.HATCHERY MAN [address] [place] [address] [facility] 04/09/24 Range Ecologist Relationship Specialty Start Date End Date Michael Puga DO [address] [place] [address] PCP - General Family Medicine 05/06/16 Connie[employer], MANAGER UTILITY.HATCHERY MAN [address] [place] [address] Rn [facility] 04/09/24 Isela Barton, MANAGER UTILITY.HATCHERY MAN [address] [place] [address] [facility] 10/16/24 Range Ecologist Relationship Specialty Start Date End Date Michael Puga DO [address] [place] [address] PCP - General Family Medicine 05/06/16 Connie[employer], MANAGER UTILITY.HATCHERY MAN [address] [place] [address] [facility] 04/09/24 Isela Barton, MANAGER UTILITY.HATCHERY MAN [address] [place] [address] [facility] 10/16/24 Team Status: Active Member Role/Relationship Status Dates Dr. Michael Puga DO Primary Care Provider Active Team Status: Inactive Member Role/Relationship Status Dates Dr. Michael Puga DO Primary Care Provider Active Start: July 03, 2024 End: July 03, 2024 Anabel ALVA, PA Attending Provider Active Start: July 03, 2024 End: July 03, 2024 Anabel ALVA PA Referring Provider Active Start: July 03, 2024 End: July 03, 2024 Team Status: Active Member Role/Relationship Status Dates Dr. Michael Puga DO Primary Care Provider Active Start: July 03, 2024 Dr. Virgil Her MD Attending Provider Active S tart: July 03, 2024 Anabel ALVA PA Referring Provider Active Start: July 03, 2024 Team Status: Inactive Member Role/Relationship Status Dates Dr. Michael Puga DO Primary Care Provider Active Start: July 07, 2024 End: July 07, 2024 Anabel ALVA, PA Attending Provider Active Start: July 07, 2024 End: July 07, 2024 Anabel ALVA PA Referring Provider Active Start: July 07, 2024 End: July 07, 2024 Team Status: Inactive Member Role/Relationship Status Dates Dr. Michael Puga DO Primary Care Provider Active Start: July 28, 2024 End: July 28, 2024 Dr. Gallo Hickey MD Attending Provider Active S tart: July 28, 2024 End: July 28, 2024 Team Status: Inactive Member Role/Relationship Status Dates Dr. Michael Puga DO Primary Care Provider Active Start: October 16, 2024 End: October 16, 2024 Dr. Gallo Hickey MD Attending Provider Active S tart: October 16, 2024 End: October 16, 2024 Team Status: Inactive Member Role/Relationship Status Dates Dr. Michael Puga DO Primary Care Provider Active Start: October 23, 2024 End: October 23, 2024 Dr. Gallo Hickey MD Attending Provider Active S tart: October 23, 2024 End: October 23, 2024 Range Ecologist Relationship Specialty Start Date End Date Michael Puga DO [address] [facility] [place] [place], [place] [address] PCP - General Family Medicine 05/06/16 Asia Rosales, MANAGER UTILITY.HATCHERY MAN [address] [facility] [place] [address] Rn Unit Manager Family Medicine 04/09/24 Isela Barton, MANAGER UTILITY.HATCHERY MAN [address] [place] [address] Rn Unit Manager Family Medicine 10/16/24 Team Status: Inactive Member Role/Relationship Status Dates Dr. Michael Puga DO Primary Care Provider Active Start: July 07, 2024 End: July 07, 2024 Anabel ALVA, PA Attending Provider Active Start: July 07, 2024 End: July 07, 2024 Anabel Horne PA, PA Referring Provider Active Start: July 07, 2024 End: July 07, 2024 Team Status: Inactive Member Role/Relationship Status Dates Dr. Michael Puga DO Primary Care Provider Active Start: July 28, 2024 End: July 28, 2024 Dr. Gallo Hickey MD Attending Provider Active S tart: July 28, 2024 End: July 28, 2024 Team Status: Inactive Member Role/Relationship Status Dates Dr. Michael Puga DO Primary Care Provider Active Start: October 16, 2024 End: October 16, 2024 Dr. Gallo Hickey MD Attending Provider Active S tart: October 16, 2024 End: October 16, 2024 Team Status: Inactive Member Role/Relationship Status Dates Dr. Michael Puga DO Primary Care Provider Active Start: October 23, 2024 End: October 23, 2024 Dr. Gallo Hickey MD Attending Provider Active S tart: October 23, 2024 End: October 23, 2024 Team Status: Active Member Role/Relationship Status Dates Dr. Michael Puga DO Primary Care Provider Active Start: October 27, 2024 Dr. Gallo Hickey MD Attending Provider Active S tart: October 27, 2024 Team Status: Active Member Role/Relationship Status Dates Dr. Michael Puga DO Primary Care Provider Active Start: October 31, 2024 Anabel Horne PA, PA Attending Provider Active Start: October 31, 2024 Anabel Horne PA, PA Referring Provider Active Start: October 31, 2024 Team Status: Inactive Member Role/Relationship Status Dates Dr. Michael Puga DO Primary Care Provider Active Start: November 02, 2024 End: November 02, 2024 Dr. Michael Puga DO Referring Provider Active Start: November 02, 2024 End: November 02, 2024 Anabel ALVA, PA Attending Provider Active Start: November 02, 2024 End: November 02, 2024 Team Status: Inactive Member Role/Relationship Status Dates Dr. Michael Puga DO Primary Care Provider Active Start: October 27, 2024 End: October 27, 2024 Dr. Gallo Hickey MD Attending Provider Active S tart: October 27, 2024 End: October 27, 2024 Team Status: Inactive Member Role/Relationship Status Dates Dr. Michael Puga DO Primary Care Provider Active Start: July 28, 2024 End: July 28, 2024 Dr. Gallo Hickey MD Attending Provider Active S tart: July 28, 2024 End: July 28, 2024 Team Status: Inactive Member Role/Relationship Status Dates Dr. Michael Puga DO Primary Care Provider Active Start: October 16, 2024 End: October 16, 2024 Dr. Gallo Hickey MD Attending Provider Active S tart: October 16, 2024 End: October 16, 2024 Team Status: Inactive Member Role/Relationship Status Dates Dr. Michael Puga DO Primary Care Provider Active Start: October 23, 2024 End: October 23, 2024 Dr. Gallo Hickey MD Attending Provider Active S tart: October 23, 2024 End: October 23, 2024 Team Status: Inactive Member Role/Relationship Status Dates Dr. Michael Puga DO Primary Care Provider Active Start: October 27, 2024 End: October 27, 2024 Dr. Gallo Hickey MD Attending Provider Active S tart: October 27, 2024 End: October 27, 2024 Team Status: Inactive Member Role/Relationship Status Dates Dr. Michael Puga DO Primary Care Provider Active Start: October 31, 2024 End: October 31, 2024 Anabel Horne PA, PA Attending Provider Active Start: October 31, 2024 End: October 31, 2024 Aanbel Horne PA, PA Referring Provider Active Start: October 31, 2024 End: October 31, 2024 Team Status: Inactive Member Role/Relationship Status Dates Dr. Michael Puga , DO Primary Care Provider Active Start: November 02, 2024 End: November 02, 2024 Dr. Michael Puga , DO Referring Provider Active Start: November 02, 2024 End: November 02, 2024 Anabel ALVA, PA Attending Provider Active Start: November 02, 2024 End: November 02, 2024 Goals (unrecognized section and content) Goals may be documented in a n alternate sectionGoals may be documented in an alternate sectionGoals may be documented in an alternate sectionGoals may be documented in an alternate sectionGoals may be documented in an alternate sectionGoals may be documented in an alternate section FOR RECORDS PERTAINING TO PATIENTS WHO ARE OR HAVE BEEN ENROLLED IN A CHEMICAL DEPENDENCY/SUBSTANCEABUSE PROGRAM, SOME INFORMATION MAY BE OMITTED. This clinical summary was aggregated from multiple sources. Caution should be exercised in using it in the provision of clinical care. This summary normalizes information from multiple sources, and as a consequence, information in this document may materially change the coding, format and clinical context of patient data. In addition, data may be omitted in some cases. CLINICAL DECISIONS SHOULD BE BASED ON THE PRIMARY CLINICAL RECORDS. [employer] provides no warranty or guarantee of the accuracy or completeness of information in this document.
--- OUTSIDE RECORDS SUMMARY | 2024-11-29 22:01 | XMS RPT_ITS | CCD ---
Author Organization [facility] Care Team Providers Care Network/Telecom Engineer Name Role Phone GLYNN Harris, Lisa Ennis [...] Dr. Rodriguez Attending Provider Edd VELASCO, Dr. Rodriguez Referring Provider Anabel Alexander Attending Provider Anabel Alexander Referring Provider Taina SZYMANSKI, Dr. Herman Attending Provider Mick METAL BONDING WORKER.GERICARE AIDE, Isela Radu Unavailable Dr. Michael Puga DO Primary Care Provider [phone] Anabel Alexander Attending Provider Anabel Alexander Referring [...] le PUGA, MICHAEL L Primary Care Unavailable JANEGETA PENADICT Referring Unavailab le JANGEETA PENADIPHU Referring [...] le PUGA, MICHAEL L Primary Care Unavailable PGUA, MICHAEL L Primary Care Unavailable JANAS, GEETA TEJADA Referring Unavailab le PUGA, MICHAEL L Primary Care Unavailable JANJEAN, GEETA TEJADA Referring Unavailab le JANAS, GEETA TEJADA Referring Unavailab le PUGA, MICHAEL L Primary Care Unavailable PUGA, MICHAEL L Primary Care Unavailable ARLENE SCHWARZ Referring Unavailable PUGA, MICHAEL L Primary Care Unavailable PJ BLEDSOE Attending Unavailable ARLENE SCHWARZ Referring Unavailable SHOSHANA, GEETA TEJADA Referring Unavailab le PUGA, MICHAEL L Primary Care Unavailable PUGA, MICHAEL L Primary Care Unavailable KEY PORTILLO Referring Unavailabl e PUGA, MICHAEL L Primary Care Unavailable GEETA CADET Referring Unavailab le PugaDr. Michael hope DO Primary Care Provider Anabel Alexander Attending Provider [phone] Anabel Alexander Referring Provider [phone] Dr. Micheal Puga DO Referring Provider [phone] Dr. Michael Puga DO Primary Care Provider [phone] Anabel Alexander Attending Provider [phone] Anabel [...] Unavailable Puga, Michael Primary Care Unavailable Edelmira, Karnack Attending Unavailable Puga, Michael Primary Care Unavailable [...] Unavailable Puga, Michael Primary Care Unavailable Edelmira, Karnack Referring Unavailable Edelmira, Karnack Attending Unavailable Puga, Michael Primary Care Unavailable [...] Unavailable Puga, Michael Primary Care Unavailable Edelmira, Karnack Referring Unavailable Edelmira, Gallo Attending Unavailable Puga, Michael Primary Care Unavailable Kristal Watkins NP Attending Unavailable Puga, Michael Primary Care Unavailable Edelmira, Karnack Attending Unavailable Anabel Horne Referring Unavailabl Anabel Santiago Attending Unavailabl e Puga, Michael Primary Care Unavailable Puga, Michael Primary Care Unavailable Edelmira, Gallo Referring Unavailable Edelmira, Gallo Attending Unavailable Puga, Michael Primary Care Unavailable Edelmira, Karnack Referring Unavailable Edelmira, Gallo Attending Unavailable Puga, Michael Referring Unavailable Puga, Michael Primary Care Unavailable Anabel Horne Attending Unavailabl e Puga, Michael Primary Care Unavailable Edelmira, Gallo Referring Unavailable Edelmira, Karnack Attending Unavailable Puga, Michael Primary Care Unavailable Edelmira, Gallo Referring Unavailable Edelmira, Karnack Attending Unavailable Edelmira, Gallo Attending Unavailable Puga, Michael Primary Care Unavailable Puga, Michael Primary Care Unavailable Anabel Horne Referring Unavailabl Anabel Santiago Attending Unavailabl e Allergies Allergy Classification Reported Allergen(s) Allergy Type Date of Onset Reaction(s) Facility Acetaminophen / HYDROcodone (1 source) Acetaminophen / HYDROcodone Drug Allergy 5 Intolerance [facility] HMG-CoA Reductase Inhibitors (statins) (1 source) Pravastatin Drug Allergy 6 Other: See Comments [facility] Work Phone: Macrolides (antibiotic) (1 source) Azithromycin Drug Allergy 8 Intolerance [facility] Opioid Agonists (1 source) Meperidine Drug Allergy 1 Vomiting [facility] Penicillins (antibiotic) (1 source) Penicillin G Drug Allergy 1 [facility] Quinolones (antibiotic) (1 source) Ciprofloxacin Drug Allergy 9 Rash [facility] Sulfonamides (antibiotic) (1 source) Sulfonamides (Antibiotic) Drug Allergy 1 [facility] (6 sources) acetaminophen / HYDROcodone drug allergy 1 Nausea & vomiting [facility] Work Phone: (6 sources) Adrenergic Beta-Antagonists drug allergy 5 Fatigue [facility] Work Phone: (15 sources) lisinopril; Translations: [lisinopril] drug allergy 6 cough [facility] Work Phone: (7 sources) meperidine drug allergy 1 Nausea & Vomiting, Unknown [facility] Work Phone: (7 sources) penicillin drug allergy 1 Hives, Unknown [facility] Work Phone: (6 sources) Sulfonamides (Antibiotic) drug allergy 1 Hives [facility] Work Phone: [phone] (1 source) guaiFENesin / HYDROcodone Drug Allergy Unknown [facility] (1 source) Sulfonamides (Antibiotic) Unknown [facility] (20 sources) Acetaminophen / HYDROcodone; Translations: [HYDROCODONE-ACET AMINOPHEN] Drug Allergy 5 Intolerance [facility] Work Phone: (20 sources) Azithromycin; Translations: [AZITHROMYCIN] Drug Allergy 8 Intolerance [facility] Work Phone: [phone] (20 sources) Meperidine; Translations: [MEPERIDINE (PF)] Drug Allergy 1 Vomiting [facility] (20 sources) Morphinan opioid; Translations: [OPIOIDS - MORPHINE ANALOGUES] Propensity to adverse reactions to drug 1 Intolerance [facility] (20 sources) Penicillin G; Translations: [PENICILLIN G] Drug Allergy 1 [facility] (20 sources) Pethidine analog; Translations: [OPIOIDS-MEPERIDI NE AND RELATED] Propensity to adverse reactions 1 [facility] (20 sources) Pravastatin; Translations: [PRAVASTATIN SODIUM] Drug Allergy 6 Other: See Comments [facility] Work Phone: (20 sources) Sulfonamides (Antibiotic); Translations: [SULFA (SULFONAMIDE ANTIBIOTICS)] Propensity to adverse reactions 1 [facility] (20 sources) Ciprofloxacin; Translations: [CIPROFLOXACIN] Drug Allergy 9 Rash [facility] (8 sources) HYDROcodone Drug Allergy 2 Other [facility] (8 sources) Meperidine Drug Allergy 2 Vomiting [facility] (9 sources) Penicillins; Translations: [Penicillins] Allergy to substance 2 [facility] (8 sources) Pravastatin Drug Allergy 2 [facility] Comment on above: LEG CRAMPS (9 sources) Beta-Blockers (Beta-Adrenergic Bloc; Translations: [Beta-Blockers (Beta-Adrenergic Bloc] Propensity to adverse reactions 2 Other [facility] Comment on above: FATIGUE (7 sources) Morphine Drug Allergy 4 [facility] Comment on above: sees things (7 sources) Sulfonamides (Antibiotic) Allergy to substance 4 [facility] (1 source) Ciprofloxacin Drug Allergy 5 [facility] (1 source) HYDROcodone Drug Allergy 5 [facility] (1 source) Meperidine Drug Allergy 5 [facility] (1 source) Morphine Drug Allergy 5 [facility] (1 source) Pravastatin Drug Allergy 5 [facility] (1 source) Sulfonamides (Antibiotic) Drug allergy (disorder) 5 [facility] Rep[facility] Medications Current Medications Medication Drug Class(es) Dates Sig (Normalized) Sig (Original) [id number] 200 actuat albuterol 0.09 mg/actuat metered dose [...] One tablet by mouth daily AMIODARONE HCL [id number] Delisa Juárez RN Start: 04-07-2011 AMIODARONE HCL 200 MG TABS 1 tablet twice a day for two weeks then 1 a day AMIODARONE HCL [id number] Gallo Hickey MD Comment on above: Take 200 mg by mouth once daily. aspirin 81 mg delayed release oral tablet (20 sources) Platelet Aggregation Inhibitor, Nonsteroidal Anti-inflammatory Drug Start: 12-27-2018 Aspirin (Adult Low Dose Aspirin) 81 mg tablet,delayed release (DR/EC) Active 81 mg PO daily 3 December 27, 2018 12:00am [facility] Start: 07-16-2016 End: 05-05-2017 take 1 tablet [...] 05, 2017 1:00am December 04, 2018 1:03pm [facility] Start: 05-24-2013 ASPIRIN 81 MG TABS ASPIRIN [id number] Anabel Horne PA-C Start: 05-24-2013 ASPIRIN 81 MG TABS ASPIRIN [id number] Anabel Horne PA-C Start: 04-07-2011 take 1 tablet by arpan th once daily ASPIRIN 325 MG TABS One tablet by mouth daily ASPIRIN [id number] Delisa Juárez RN Comment on above: Take [...] 12:23pm [facility] Start: 08-10-2013 DILT-XR 240 MG [id number] DILTIAZEM HCL [id number] Kristel Garcia RN Start: 08-10-2013 take 1 tablet by arpan th once daily DILT-XR 240 MG [id number] One tablet by mouth daily DILTIAZEM HCL [id number] Gallo Hickey MD Start: 07-19-2013 take 1 tablet by arpan th twice daily DILT-XR 120 MG [id number] One tablet by mouth twice daily DILTIAZEM HCL [id number] Anabel Horne PA-C Start: 07-19-2013 take 1 tablet by arpan th twice daily DILT-XR 120 MG [id number] One tablet by mouth twice daily DILTIAZEM HCL [id number] Anabel Horne PA-C Start: 05-05-2011 take 1 tablet by arpan th once daily DILT-XR 120 MG [id number] One tablet by mouth daily DILTIAZEM HCL [id number] Gallo Hickey MD Start: 05-05-2011 take 1 tablet by arpan th once daily DILT-XR 120 MG [id number] One tablet by mouth daily DILTIAZEM HCL [id number] Gallo Hickey MD Comment on above: Take 1 capsule by mo [facility] once daily. doxycycline hyclate 100 mg [...] TABS One tablet by mouth daily FUROSEMIDE [id number] Irmasophie Strong gabapentin 100 mg oral capsule [...] tablet by mouth three times daily GABAPENTIN [id number] Gallo Hickey MD hydrALAZINE hydrochloride 50 mg [...] 10:47pm Start: 10-29-2020 take 1 capsule by [facility] once daily omeprazole (PRILOSEC) 20 mg capsule [...] CPDR One tablet by mouth daily OMEPRAZOLE [id number] Gallo Hickey MD Start: 07-19-2013 End: 05-28-2015 take 1 tablet by mouth once daily PRILOSEC 20 MG CPDR One tablet by mouth daily OMEPRAZOLE [id number] JAMAL KatzC Comment on above: Take 1 capsule by [facility] once daily. PARoxetine hydrochloride 40 mg oral [...] to 6 hours as needed HYDROCODONE-ACETAMI NOPHEN [id number] Gallo Hickey MD amLODIPine 10 mg oral tablet (18 sources) Dihydropyridine Calcium Channel Tenzin Start: 05-28-2015 End: 08-28-2016 take 1 tablet by mouth once daily NORVASC 10 MG TABS One tablet by mouth daily AMLODIPINE BESYLATE 47293641099 Gallo Hickey MD apixaban 5 mg oral [...] Comment on above: Take 1 capsule by [facility] once daily. citalopram 20 mg oral tablet (6 sources) Serotonin Reuptake Inhibitor Start: 09-23-19 11 take 1 tablet by mouth once daily CELEXA 20 MG TABS One tablet by mouth daily CITALOPRAM HYDROBROMIDE [id number] Irma Strong clindamycin 300 mg oral capsule (12 sources) Lincosamide Antibacterial Start: 09-23-19 11 End: 05-18-19 13 CLINDAMYCIN HCL 300 MG CAPS 2 tablets by mouth 30-60 mins prior to procedure CLINDAMYCIN HCL [id number] Irma Strong enalapril maleate 20 mg oral tablet (12 sources) Angiotensin Converting Enzyme Inhibitor Start: 09-23-19 11 End: 05-05-19 12 ENALAPRIL MALEATE 20 MG TABS 1/2 tablet daily ENALAPRIL MALEATE 22053232367 Gallo Hickey MD escitalopram 20 mg oral [...] One tablet by mouth daily ESCITALOPRAM OXALATE [id number] JAMAL KatzC Comment on above: Take 1 [...] tablet by mouth twice daily FLECAINIDE ACETATE 59001841064 Gallo Hickey MD 120 actuat fluticasone propionate [...] tablet by mouth Q4H as needed IBUPROFEN [id number] Anabel Horne PA-C lisinopril 10 mg oral tablet (6 sources) Angiotensin Converting Enzyme Inhibitor Start: 5 take 1 tablet by mouth once daily LISINOPRIL 10 MG TABS One tablet by mouth daily LISINOPRIL [id number] Anabel Horne PA-C losartan potassium 100 mg [...] One tablet by mouth daily LOSARTAN POTASSIUM 59749970415 Anabel Horne PA-C Start: 04-04-2015 End: 06-26-2015 take 1 tablet by mouth twice daily LOSARTAN POTASSIUM 50 MG TABS One tablet by mouth twice daily LOSARTAN POTASSIUM [id number] Kristel M Kilner, RN Comment on above: [...] One tablet by mouth daily MULTIPLE VITAMIN [id number] Gallo Hickey MD Start: 05-18-2012 End: 05-24-2013 take 1 tablet by mouth once daily MULTIVITAMINS TABS One tablet by mouth daily MULTIPLE VITAMIN 66754352830 JAMAL KatzC MULTIPLE VITAMIN (2 sources) Start: 05-18-2012 take 1 tablet by mouth once daily MULTIVITAMINS TABS One tablet by mouth daily MULTIPLE VITAMIN 46042850369 Gallo Hickey MD Start: 05-18-2012 End: 05-24-2013 take 1 tablet by mouth once daily MULTIVITAMINS TABS One tablet by mouth daily MULTIPLE VITAMIN 21538775485 Anabel Horne PA-C nystatin 100 unt/mg topical [...] by mouth daily OMEGA-3 FATTY ACIDS CPDR 98166389913 Irma Strong Start: 09-22-2010 End: 05-18-2012 take 1 tablet by mouth once daily OMEGA 3 CPDR One tablet by mouth daily OMEGA-3 FATTY ACIDS CPDR 73876903786 Gallo Hickey MD OMEGA-3 FATTY ACIDS CPDR (2 sources) Start: 09-22-2010 take 1 tablet by mouth once daily OMEGA 3 CPDR One tablet by mouth daily OMEGA-3 FATTY ACIDS CPDR 16413010292 Irma Strong Start: 09-22-2010 End: 05-18-2012 take 1 tablet by mouth once daily OMEGA 3 CPDR One tablet by mouth daily OMEGA-3 FATTY ACIDS CPDR 79435153689 Gallo Hickey MD polyethylene glycol 3350 48361 mg powder for oral solution (8 sources) [...] mg, One tablet by mouth daily CYANOCOBALAMIN 65674365910 Delisa Juárez RN take 1 tablet by arpan th once daily cyanocobalamin (VITAMIN B-12) 1,000 mcg tab Take 1,000 mcg by mouth once daily. 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; Translations: [Other truck terminal manager (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 Normal [facility] Cardiology Visit Reporton Cardiology Visit Report [facility] [address] [place], [place] [address] OFFICE VISIT Date of Service: 11/02/24 MR#: [id number] Acct: [id number] Name: MICHAEL MEIER Rep #: [id number] : 1940 Provider: NIDA Carbajal Age/Sex: 84/F Location: [facility] Status: Signed with Addenda ADDENDUM by NIDA [...] 06/09/21 (5) Pulmonary hypertension: Status: Acute (6) group home current use of amiodarone: Status: Acute Orders: [...] clinical notes re: SOB, appt moved up Buffer Machine Required: No Accompanied by: Friend Is patient [...] 81 mg tablet,delayed 81 mg PO QDAY [facility] (Service[facility]) #90 tab s 12/27/18 11/02/24 Rx release [...] Rx fu (more content not included)... Normal [facility] 11[facility]01-2024 [facility]FAM[facility] MICHAEL MEIER ([id number]) 1940 F Date Time Provider Department 11/01/24 [facility] During your visit today, we recorded the following information about you: Key Portillo APRN.[facility] 11/01/2024 9:22 AM Signed ----- Message from Sarah Merchant, PT sent at 10/27/2024 6:59 PM EDT ----- Hi Dr Puga, We're seeing Michael for PT (she was referred by [facility]) and we've also seen her here in the past for ortho/mobility issues. She's been reporting increased Shortness of Breath with minimal activity which I definitely noticed today (I encouraged her to go to ER prn but she doesn't think it's necessary). She's also reporting increased low back pain (mostly with standing AND walking). 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 I also think a spine/pain mgmt consult would be a good idea for the chronic/worsening low back pain. Thanks, Sarah Merchant, PT Key Portillo APRN.[employer] A[employer] 11/01/2024 9:22 AM Signed Please see if [...] skin [L90.5] (more content not included)... Normal [facility] Absolute lymphocyte countOrd ered By: Anabel Horne on 10-31-2024 Lymphocytes Auto (Unsp spec) [#/Vol] 1.16 10*3/uL 0.83-4.51 [facility] Absolute neutrophil countOrd ered By: Anabel Horne on 10-31-2024 Neutrophils (Bld) [#/Vol] 10.5 10*3/uL High 2.0-7.7 [facility] Anion gap in Serum or Plasma Ordered By: Anabel Horne on 10-31-2024 Anion gap [Moles/Vol] 14 mmol/L 5-15 [facility] Automated lymphocyte count a s percentage of total leukocytesOrdered By: Anabel Horne on 10-31-2024 Lymphocytes/100 WBC Auto (Unsp spec) 8.7 % Low 19-41 [facility] BUN/creatinine ratioOrdered By: Anabel Horne on 10-31-2024 Urea nitrogen/Creatinine [Mass ratio] 26.2 mg/mg High - [facility] Basic Metabolic Profile (BMP )on 10-31-2024 BUN/CRE 26.2 RATIO High 10- [facility] Comment on above: Performed By: #### L 500.3400, L501.2450 #### [facility] [address] [place], [address] Calcium [Mass/Vol] 9.0 mg/dL Normal 7.6-11.0 [facility] Comment on above: Performed By: #### L 500.3400, L501.2450 #### [facility] [address] [place], [address] Chloride [Moles/Vol] 96 mmol/L Low 98-108 [facility] Comment on above: Performed By: #### L 500.3400, L501.2450 #### [facility] [address] [place], [address] CO2 [Moles/Vol] 23.0 mmol/L Normal 21.0-32.0 [facility] Comment on above: Performed By: #### L 500.3400, L501.2450 #### [facility] [address] [place], [address] Creatinine [Mass/Vol] 1.40 mg/dL High 0.70-1.20 [facility] Comment on above: Performed By: #### L 500.3400, L501.2450 #### [facility] [address] [place], [address] GAP 14 Normal 5-15 [facility] Comment on above: Performed By: #### L 500.3400, L501.2450 #### [facility] [address] [place], [address] GFR/1.73 sq M.predicted among non-blacks MDRD (S/P/Bld) [Vol rate/Area] 37 mL/min/{1.73_m2} Low >60 [facility] Comment on above: Result Comment: mL/m in/1.73m2 CKD-EPI Creatinine Equation (2020) Performed By: #### L 500.3400, L501.2450 #### [facility] [address] [place], [address] Glucose [Mass/Vol] 94 mg/dL Normal 70-99 [facility] Comment on above: Performed By: #### L 500.3400, L501.2450 #### [facility] [address] [place], [address] Potassium [Moles/Vol] 5.0 mmol/L Normal 3.3-5.1 [facility] Comment on above: Result Comment: Hemo lysis present, Results??could be affected. ?? Performed By: #### L 500.3400, L501.2450 #### [facility] [address] [place], [address] Sodium [Moles/Vol] 133 mmol/L Normal 133-145 [facility] Comment on above: Performed By: #### L 500.3400, L501.2450 #### [facility] [address] [place], [address] Urea nitrogen [Mass/Vol] 37 mg/dL High 4-19 [facility] Comment on above: Performed By: #### L 500.3400, L501.2450 #### [facility] [address] [place], [address] Basophil percentageOrdered B y: Anabel Horne on 10-31-2024 Basophils/100 WBC (Bld) 0.6 % 0-1 [facility] CBC W/Diff, Automatedon 07-0 Absolute Lymph 1.16 X10 3/uL Normal 0.83-4.51 [facility] Comment on above: Performed By: #### L 100.0100, L501.9520, L500.2500, L503.7505 #### [facility] [address] [place], [address] Absolute Neut 10.5 X10 3/uL High 2.0-7.7 [facility] Comment on above: Performed By: #### L 100.0100, L501.9520, L500.2500, L503.7505 #### [facility] [address] [place], [address] Basophils/100 WBC (Bld) 0.6 % Normal 0-1 [facility] Comment on above: Performed By: #### L 100.0100, L501.9520, L500.2500, L503.7505 #### [facility] [address] [place], [address] Eosinophils/100 WBC (Bld) 0.7 % Normal 0-5 [facility] Comment on above: Performed By: #### L 100.0100, L501.9520, L500.2500, L503.7505 #### [facility] [address] [place], [address] Erythrocyte distribution width (RBC) [Ratio] 14.4 % Normal 11.6-14.6 [facility] Comment on above: Performed By: #### L 100.0100, L501.9520, L500.2500, L503.7505 #### [facility] [address] [place], [address] Hematocrit (Bld) [Volume fraction] 37.0 % Normal 37-47 [facility] Comment on above: Performed By: #### L 100.0100, L501.9520, L500.2500, L503.7505 #### [facility] [address] [place], [address] Hemoglobin (Bld) [Mass/Vol] 12.4 g/dL Normal 12.0-15.0 [facility] Comment on above: Performed By: #### L 100.0100, L501.9520, L500.2500, L503.7505 #### [facility] [address] [place], [address] IG% 0.500 Normal 0.0-0.9 [facility] Comment on above: Result Comment: IG% - Immature Granulocytes (promyelocytes, myelocytes and metamyelocytes) > 1% indicates that a LEFT SHIFT is Present. Performed By: #### L 100.0100, L501.9520, L500.2500, L503.7505 #### [facility] [address] [place], [address] Lymphocytes/100 WBC (Bld) 8.7 % Low 19-41 [facility] Comment on above: Performed By: #### L 100.0100, L501.9520, L500.2500, L503.7505 #### [facility] [address] [place], [address] MCH (RBC) [Entitic mass] 30.3 pg Normal 27.0-32.0 [facility] Comment on above: Performed By: #### L 100.0100, L501.9520, L500.2500, L503.7505 #### [facility] [address] [place], [address] MCHC (RBC) [Mass/Vol] 33.5 g/dL Normal 32-36 [facility] Comment on above: Performed By: #### L 100.0100, L501.9520, L500.2500, L503.7505 #### [facility] [address] [place], [address] MCV (RBC) [Entitic vol] 90.5 fL Normal 81-99 [facility] Comment on above: Performed By: #### L 100.0100, L501.9520, L500.2500, L503.7505 #### [facility] [address] [place], [address] Monocytes/100 WBC (Bld) 10.6 % High 0-10 [facility] Comment on above: Performed By: #### L 100.0100, L501.9520, L500.2500, L503.7505 #### [facility] [address] [place], [address] Neutrophils/100 WBC (Bld) 78.9 % High 47-70 [facility] Comment on above: Performed By: #### L 100.0100, L501.9520, L500.2500, L503.7505 #### [facility] [address] [place], [address] Nucleated RBC (Bld) [#/Vol] 0 10*3/uL Normal 0-5 [facility] Comment on above: Performed By: #### L 100.0100, L501.9520, L500.2500, L503.7505 #### [facility] [address] [place], [address] Platelet mean volume (Bld) [Entitic vol] 10.1 fL Normal 6.2-12.0 [facility] Comment on above: Performed By: #### L 100.0100, L501.9520, L500.2500, L503.7505 #### [facility] [address] [place], [address] Platelets (Bld) [#/Vol] 292 10*3/uL Normal 150-450 [facility] Comment on above: Performed By: #### L 100.0100, L501.9520, L500.2500, L503.7505 #### [facility] [address] [place], [address] RBC (Bld) [#/Vol] 4.09 10*6/uL Low 4.2-5.4 [facility] Comment on above: Performed By: #### L 100.0100, L501.9520, L500.2500, L503.7505 #### [facility] [address] [place], [address] RDW SD 47.9 fl High 35.1-43.9 [facility] Comment on above: Performed By: #### L 100.0100, L501.9520, L500.2500, L503.7505 #### [facility] [address] [place], [address] WBC (Bld) [#/Vol] 13.3 10*3/uL High 4.4-11.0 [facility] Comment on above: Performed By: #### L 100.0100, L501.9520, L500.2500, L503.7505 #### [facility] [address] [place], [address] Carbon dioxide, total [Moles /volume] in Central venous bloodOrdered By: Anabel Horne on 10-31-2024 CO2 [Moles/Vol] 23.0 mmol/L 21.0-32.0 [facility] Chest PA and Lateralon 10-31 Chest PA and Lateral [facility] Imaging Services [address] [place] [address] Chest PA and Lateral MR#: [id number] Acct: [id number] Name: MICHAEL MEIER Rep #: [id number] : 1940 F 84 From: Raudel Bradley MD PCP: Dr. Michael Puga DO Status: REG CLI Study: Chest PA and Lateral Date of Exam: 10/31/24 Exam# [id number] Ordering Dr: Anabel Horne PA PROCEDURE: CHEST [...] pulmonary process, no interval change Reading Location: [id number] CC: Dr. Michael Puga DO; NIDA Katz It Systems Engineer: Signed Normal [facility] Chloride assayOrdered By: Sugey Horne on 10-31-2024 Chloride [Moles/Vol] 96 mmol/L Low 98-108 [facility] Eosinophil percentageOrdered By: Anabel Horne on 10-31-2024 Eosinophils/100 WBC (Bld) 0.7 % 0-5 [facility] Erythrocyte distribution wid th ratioOrdered By: Anabel Horne on 10-31-2024 Erythrocyte distribution width (RBC) [Ratio] 14.4 % 11.6-14.6 [facility] Erythrocyte distribution wid th standard deviationOrdered By: Anabel Horne on 10-31-2024 Erythrocyte distribution width (RBC) [Ratio] 47.9 fl High 35.1-43.9 [facility] Glomerular filtration rate ( GFR) estimation/1.73 sq m using serum, plasma, or whole bOrdered By: Anabel Horne on 10-31-2024 GFR/1.73 sq M.predicted among non-blacks MDRD (S/P/Bld) [Vol rate/Area] 37 mL/min/{1.73_m2} Low >60 [facility] Comment on above: mL/min/1.73m2 CKD-EP I Creatinine Equation (2020) Hematocrit Auto (Bld) [Volum e fraction]Ordered By: Anabel Horne on 10-31-2024 Hematocrit (Bld) [Volume fraction] 37.0 % 37-47 [facility] Hemoglobin measurementOrdere d By: Anabel Horne on 10-31-2024 Hemoglobin (Bld) [Mass/Vol] 12.4 g/dL 12.0-15.0 [facility] Immature granulocytes/100 WB C Auto (Bld)Ordered By: Anabel Horne on 10-31-2024 Immature granulocytes/100 WBC (Bld) 0.500 % 0.0-0.9 [facility] Comment on above: IG% - Immature Granu locytes (promyelocytes, myelocytes and metamyelocytes) > 1% indicates that a LEFT SHIFT is Present. L503.7505on 10-31-2024 Natriuretic peptide B (Bld) [Mass/Vol] 216 pg/mL Normal <=1800 [facility] Comment on above: Result Comment: Hear t Failure Unlikely: < 300 pg/mL Heart Failure Likely < 50 Years: > 450 pg/mL 50-75 Years: > 900 pg/mL >75 Years: > 1800 pg/mL Performed By: #### L 500.3400, L501.2450 #### [facility] [address] [place], [address] MCV (mean corpuscular volume ) determinationOrdered By: Anabel Horne on 10-31-2024 MCV (RBC) [Entitic vol] 90.5 fL 81-99 [facility] Mean corpuscular hemoglobin (MCH) determinationOrdered By: Anabel Horne on 10-31-2024 MCH (RBC) [Entitic mass] 30.3 pg 27.0-32.0 [facility] Mean corpuscular hemoglobin concentration (MCHC) determinationOrdered By: Anaebl Horne on 10-31-2024 MCHC (RBC) [Mass/Vol] 33.5 g/dL 32-36 [facility] Mean platelet volume determi nationOrdered By: Anabel Horne on 10-31-2024 Platelet mean volume (Bld) [Entitic vol] 10.1 fL 6.2-12.0 [facility] Monocyte percentageOrdered B y: Anabel Horne on 10-31-2024 Monocytes/100 WBC (Bld) 10.6 % High 0-10 [facility] Natriuretic peptide.B prohor carmelita N-Terminal [Mass/volume] in Serum or PlasmaOrdered By: Anabel Horne on 10-31-2024 Natriuretic peptide.B prohormone N-Terminal [Mass/Vol] 216 pg/mL <1800 [facility] Comment on above: Heart Failure Unlike ly: < 300 pg/mLHeart Failure Likely< 50 Years: > 450 pg/mL50-75 Years: > 900 pg/mL>75 Years: > 1800 pg/mL Neutrophil percentageOrdered By: Anabel Horne on 10-31-2024 Neutrophils/100 WBC (Bld) 78.9 % High 47-70 [facility] Nucleated red blood cell per centageOrdered By: Anabel Horne on 10-31-2024 Nucleated RBC/100 WBC (Bld) [Ratio] 0 % 0-5 [facility] Platelet countOrdered By: Sugey Horne on 10-31-2024 Platelets (Bld) [#/Vol] 292 10*3/uL 150-450 [facility] Potassium measurement (mass/ volume)Ordered By: Anabel Horne on 10-31-2024 Potassium (Unsp spec) [Mass/Vol] 5.0 mmol/L 3.3-5.1 [facility] Comment on above: Hemolysis present, R esults could be affected. RBC Auto (Bld) [#/Vol]Ordere d By: Anabel Horne on 10-31-2024 RBC (Bld) [#/Vol] 4.09 10*6/uL Low 4.2-5.4 [facility] Serum creatinine measurement (mass/volume)Ordered By: Anabel Horne on 10-31-2024 Creatinine [Mass/Vol] 1.40 mg/dL High 0.70-1.20 [facility] Serum glucose measurement (m ass/volume)Ordered By: Anabel Horne on 10-31-2024 Glucose [Mass/Vol] 94 mg/dL 70-99 [facility] Serum or plasma calcium julee urement (mass/volume)Ordered By: Anabel Horne on 10-31-2024 Calcium [Mass/Vol] 9.0 mg/dL 7.6-11.0 [facility] Serum or plasma urea nitroge n measurement (mass/volume)Ordered By: Anabel Horne on 10-31-2024 Urea nitrogen [Mass/Vol] 37 mg/dL High 4-19 [facility] Sodium levelOrdered By: Thien Horne on 10-31-2024 Sodium [Moles/Vol] 133 mmol/L 133-145 [facility] TSH DL <= 0.005 mIU/L QnOrde red By: Anabel Horne on 10-31-2024 TSH Qn 3.460 uIU/mL 0.300-4.20 0 [facility] Thyroid Stim Hormone (TSH)on 10-31-2024 TSH 3.460 uIU/mL Normal 0.300-4.20 0 [facility] Comment on above: Performed By: #### L 500.3400, L501.2450 #### [facility] [address] [place], [address] White blood cell (WBC) count Ordered By: Anabel Horne on 10-31-2024 WBC (Bld) [#/Vol] 13.3 10*3/uL High 4.4-11.0 [facility] CNTHERAPYon 10-27-2024 CNTHERAPY OT/PT/Speech Visit ( LDPT) MICHAEL MEIER ([id number]) 1940 F Date Time Provider Department 10/27/24 12:45 PM SARAH MERCHANT LDPT Date Time Provider Department Center 10/27/2024 12:45 PM [id number], CARLA LDPT [facility] Reason for Visit: Physical Therapy [503] [...] 1 capsule by mouth once daily. Normal [facility] CNPN Telephone (FAMPWS) HARDEEPMICHAEL [place] ([id number]) 1940 F Date Time Provider Department 10/25/24 [facility] During your visit today, we recorded [...] DYSMETABOLIC SYNDRO (more content not included)... Normal [facility] CNTHERAPYon 10-09-2024 CNTHERAPY OT/PT/Speech Visit ( LDPT) HARDEEPMICHAEL ([id number]) 1940 F Date Time Provider Department 10/09/24 12:45 PM JOY SUN Date Time Provider Department [place] 10/09/2024 12:45 PM [id number] SUNLDFRANTZ [facility] Reason for Visit: Physical Therapy [503] [...] 1 capsule by mouth once daily. Normal [facility] CNTHERAPYon 10-02-2024 CNTHERAPY OT/PT/Speech Visit ( LDPT) BRADENMICHAEL DAVIES ([id number]) 1940 F Date Time Provider Department 10/02/24 3:00 PM PJ BLEDSOE Date Time Provider Department Center 10/02/2024 3:00 PM [id number] [facility] Reason for Visit: Physical Therapy [503] [...] Take 1 capsule by mouth once daily. [facility] [id number] 09-28-2024 [id number] O ID: [id number] Author: SARAH MERCHANT PT Service: ? Author Type: Physical Therapist Type: [id number] Filed: 09/28/2024 15:41 Note Text: [facility] Physical Therapy Plan of Care Certification Patient Name: Michael Meier : 1940 [facility] #: [id number] Date: 09/28/2024 To: Arlene Schwarz MD From [...] increase T-score by a minimum 5 points. [place]ole in home exercise program. Patient will demonstrate [...] Planned: 12 Planned Treatment Interventions: Therapeutic exercise (18858), Neuromuscular re-education (04917), Therapeutic activities (78181), Self-usp management (71402), Gait Training (59368), Patient/Family/Caregiver Education, General Conditioning PLAN FOR NEXT [...] the treatment plan for Michael Deras Hardeep, [facility]# [id number] for the period of 09/28/24 -- 12/27/24, established on 09/28/2024. Signature certifies the need for therapy services. [facility] 09-28-2024 [facility] Telephone (FAMPWS) MICHAEL MEIER ([id number]) 1940 F Date Time Provider Department 09/28/24 KEY PORTILLO During your visit today, we recorded the following information about you: Nadine Colon LPN 09/28/2024 1:48 PM Signed Kell from [facility] calling to report patient tremor is worse [...] of the office. Please advise Key Portillo APRN.GERICARE AIDE 09/28/2024 3:02 PM Signed Pt needs appointment [...] [D23.30] 01/21/20 (more content not included)... Normal [facility] CNTHERAPYon 09-28-2024 CNTHERAPY OT/PT/Speech Visit ( LDPT) MICHAEL MEIER ([id number]) 1940 F Date Time Provider Department 09/28/24 2:15 PM SARAH MERCHANT LDPT Date Time Provider Department Center 09/28/2024 2:15 PM [id number], CARLA LDPT [facility] Reason for Visit: PT Eval [747] [...] by mouth once daily. Letter Text Normal [facility] CNPNon [facility]-08-2024 [facility] MICHAEL MEIER ([id number]) 1940 F Date Time Provider Department 09/08/24 MICHAEL PUGA [facility] During your visit today, we recorded [...] guidelines. Please phone Jackelin with any questions: [phone] extension [phone] Michael Puga DO 09/08/2024 12:37 PM Signed Noted, is she willing to do this testing? DO Juan Diego Dow M Robin, RN 09/08/2024 1:38 PM Signed Phoned pt and explained what Poornima reported needed to be done per Medicare guidelines for her to qualify for oxygen. Pt reports she was in [facility] about a yr ago with pneumonia, and [...] aspirin, e (more content not included)... Normal [facility] 09-05-2024 [facility]) MICHAEL MEIER ([id number]) 1940 F Date Time Provider Department 09/05/24 MICHAEL PUGA [facility] During your visit today, we recorded [...] 09/07/2024 11:18 AM Signed Petra NOLASCO from [facility] calls and is asking status of request. When order is placed, please fax order to [facility]. Please place order for nighttime pulsometry test and fax to [employer] [facility]. Please review and advise, GLYNN Bonilla Rebekah, [...] Fully Assessed Reason for Visit: Patient Question [5511] Primary Visit Diagnosis:Congestive heart failure, unspecified HF chronicity, unspecified heart failure type (HCC) [I50.9] Other Visit Diagnoses:Obstructive lung disease (HCC) [J44.9] Chronic respiratory failure with hypoxia (HCC) [J96.11] Order(s):NONINVASV OXYGEN SATUR;SINGLE [[id number]] Order #: [id number] Prescriptions as of 09/08/2024 - rOPINIRole (REQUIP) [...] Noted Resolv (more content not included)... Normal [facility] CNOVon 08-30-2024 CNOV Office Visit (FAMPWS ) MICHAEL MEIER ([id number]) 1940 F Date Time Provider Department 08/30/24 3:00 PM MICHAEL PUGA During your visit today, we recorded the following information about you: Temperature Pulse Respiration Blood pressure 97 degrees 64/minute 20/minute 148/64 Weight 104.3 kg Micahel Puga, 08/30/2024 10:10 PM Signed CC: Michael [...] COMPARTMENTS 11/15/2009 Knee replacement, total -Left - [facility] ARTHRP BARRYE CONDYLEANDPLATU MEDIALANDLAT COMPARTMENTS 12/30/2009 Right knee replaced COLONOSCOPY FLX DX W/COLLJ SPEC WHEN PFRMD 06/29/2017 Colonoscopy EGD 10/17/2020 EGD W/O [facility] SPEC VARICIES INJ 01/08/2022 EGD W/O [facility] SPEC VARICIES INJ 03/31/2024 Lito ESOPHAGOGASTRODUODENOSCOPY TRANSORAL [...] tablet Ta (more content not included)... Normal [facility] HEMOGLOBIN A1C (POC)on 08-30 HbA1c (Bld) [Mass fraction] 5.2 % 4.3 - 5.6 % [facility] Comment on above: Location:[address], [place], [address] Point of care (POC) Hemoglobin A1c (HGBA1C) [...] specific diabetes management situations: The POC device promotions associate provides a normal range of 4.2% to 6.5% for the HGBA1C POC test. However, the [place] [employer] guidelines indicate that patients with [...] anemia) that alter red blood cell lifespan. [facility] Priscila 08-25-2024 [facility] HARDEEPMICHAEL ([id number]) 1940 F Date Time Provider Department 08/25/24 ASIA ROSALES During your visit today, we recorded the following information about you: Ruba Argueta LPN 08/25/2024 9:35 AM Signed Petra from [facility] calling stating that the referral for Palliative Care be faxed to [facility] at [phone]. Referral and office visit faxed as requested. [...] and urg (more content not included)... Normal [facility] CNOVon 08-17-2024 CNOV Office Visit (FAMPWS ) MICHAEL MEIER ([id number]) 1940 F Date Time Provider Department 08/17/24 3:20 PM ASIA ROSALES During your visit today, we recorded the following information about you: Pulse Blood pressure 61/minute 136/68 Asia Rosales, MIRIAN.GERICARE AIDE 08/18/2024 8:27 AM Signed Chief Complaint Patient [...] COMPARTMENTS 11/15/2009 Knee replacement, total -Left - [facility] ARTHRP KNE CONDYLEANDPLATU MEDIALANDLAT COMPARTMENTS 12/30/2009 Right knee replaced COLONOSCOPY FLX DX W/COLLJ SPEC WHEN PFRMD 06/29/2017 Colonoscopy EGD 10/17/2020 EGD W/O [facility] SPEC VARICIES INJ 01/08/2022 EGD W/O [facility] SPEC VARICIES INJ 03/31/2024 Lito ESOPHAGOGASTRODUODENOSCOPY TRANSORAL [...] ENTERIC COATED (more content not included)... Normal [facility]-16-20[facility] MICHAEL MEIER ([id number]) 1940 F Date Time Provider Department 08/16/24 [facility] During your visit today, we recorded the following information about you: Loli Adamson, RN 08/16/2024 1:46 PM Signed [facility]- reports she is seeing patient and spoke [...] nurse phoned patient and scheduled appt with Digital Performance Analyst for tomorrow to see if Digital Performance Analyst can increase patient's paxil. Asia Rosales APRN.GERICARE AIDE 08/18/2024 2:37 PM Signed I saw her in the office yesterday 08/17 and these concerns were addressed. Asia Rosales APRN.GERICARE AIDE Allergies As of Date: 08/16/2024 Noted Allergy [...] FACE NEC (more content not included)... Normal [facility] Anion gap in Serum or Plasma Ordered By: Anabel Horne on 07-07-2024 Anion gap [Moles/Vol] 20 mmol/L High - [facility] BUN/creatinine ratioOrdered By: Anabel Horne on 07-07-2024 Urea nitrogen/Creatinine [Mass ratio] 26.5 mg/mg High [facility] Basic Metabolic Profile (BMP )on 07-07-2024 BUN/CRE 26.5 RATIO High [facility] Comment on above: Performed By: #### L 500.2500 #### [facility] [address] [facility] [address] Calcium [Mass/Vol] 9.5 mg/dL Normal 7.6-11.0 [facility] Comment on above: Performed By: #### L 500.2500 #### [facility] [address] [place], [address] Chloride [Moles/Vol] 97 mmol/L Low 98-108 [facility] Comment on above: Performed By: #### L 500.2500 #### [facility] [address] [facility] [address] CO2 [Moles/Vol] 19.7 mmol/L Low 21.0-32.0 [facility] Comment on above: Performed By: #### L 500.2500 #### [facility] [address] [place], [address] Creatinine [Mass/Vol] 1.30 mg/dL High 0.70-1.20 [facility] Comment on above: Performed By: #### L 500.2500 #### [facility] [address] [place], [address] GAP 20 High 5-15 [facility] Comment on above: Performed By: #### L 500.2500 #### [facility] [address] [place], [address] GFR/1.73 sq M.predicted among non-blacks MDRD (S/P/Bld) [Vol rate/Area] 41 mL/min/{1.73_m2} Low >60 [facility] Comment on above: Result Comment: mL/m in/1.73m2 CKD-EPI Creatinine Equation (2020) Performed By: #### L 500.2500 #### [facility] [address] [place], [address] Glucose [Mass/Vol] 99 mg/dL Normal 70-99 [facility] Comment on above: Performed By: #### L 500.2500 #### [facility] [address] [place], [address] Potassium [Moles/Vol] 4.3 mmol/L Normal 3.3-5.1 [facility] Comment on above: Performed By: #### L 500.2500 #### [facility] [address] [place], [address] Sodium [Moles/Vol] 137 mmol/L Normal 133-145 [facility] Comment on above: Performed By: #### L 500.2500 #### [facility] [address] [place], [address] Urea nitrogen [Mass/Vol] 35 mg/dL High 4-19 [facility] Comment on above: Performed By: #### L 500.2500 #### [facility] [address] [place], [address] Carbon dioxide, total [Moles /volume] in Central venous bloodOrdered By: Anabel Horne on 07-07-2024 CO2 [Moles/Vol] 19.7 mmol/L Low 21.0-32.0 [facility] Chloride assayOrdered By: Sugey Horne on 07-07-2024 Chloride [Moles/Vol] 97 mmol/L Low 98-108 [facility] GFR/1.73 sq M.predicted herve g non-blacks MDRD (S/P/Bld) [Vol rate/Area]Ordered By: Anabel Horne on 07-07-2024 Estimated GFR (MDRD) Non-Af Amer 41 Low >60 [facility] Comment on above: mL/min/1.73m2 CKD-EP I Creatinine Equation (2020) Glomerular filtration rate ( GFR) estimation/1.73 sq m using serum, plasma, or whole bOrdered By: Anabel Horne on 07-07-2024 GFR/1.73 sq M.predicted among non-blacks MDRD (S/P/Bld) [Vol rate/Area] 41 mL/min/{1.73_m2} Low >60 [facility] Comment on above: mL/min/1.73m2 CKD-EP I Creatinine Equation (2020) Potassium (Unsp spec) [Mass/ Vol]Ordered By: Anabel Horne on 07-07-2024 Potassium [Moles/Vol] 4.3 mmol/L 3.3-5.1 [facility] Potassium measurement (mass/ volume)Ordered By: Anabel Horne on 07-07-2024 Potassium (Unsp spec) [Mass/Vol] 4.3 mmol/L 3.3-5.1 [facility] Serum creatinine measurement (mass/volume)Ordered By: Anabel Horne on 07-07-2024 Creatinine [Mass/Vol] 1.30 mg/dL High 0.70-1.20 [facility] Serum glucose measurement (m ass/volume)Ordered By: Anabel Horne on 07-07-2024 Glucose [Mass/Vol] 99 mg/dL 70-99 [facility] Serum or plasma calcium julee urement (mass/volume)Ordered By: Anabel Horne on 07-07-2024 Calcium [Mass/Vol] 9.5 mg/dL 7.6-11.0 [facility] Serum or plasma urea nitroge n measurement (mass/volume)Ordered By: Anabel Horne on 07-07-2024 Urea nitrogen [Mass/Vol] 35 mg/dL High 4-19 [facility] Sodium levelOrdered By: Thien Horne on 07-07-2024 Sodium [Moles/Vol] 137 mmol/L 133-145 [facility] Carotid Duplex Ultrasoundon 07-03-2024 Carotid Duplex Ultrasound [facility] [address] [place] [address] Carotid Duplex Ultrasound 07/03/24 1246 MR#: [id number] Acct: [id number] Name: MICHAEL MEIER Rep #: [id number] : 1940 84 From: Virgil Her MD Attending Dr: NIDA aKtz Status: REG CLI Ordering Dr: Anabel Horne [...] the left vertebral artery. Procedure Carotid Duplex 71793. This is a Carotid Duplex examination using [...] Date Dictated: 07/03/24 1246 Date Transcribed: 07/03/241805 It Systems Engineer: Signed Normal [facility] Duplex ultrasound of carotid artery reportOrdered By: Virgil Her on 07-03-2024 Study report [facility] [address] [place] [address] Carotid Duplex Ultrasound 07/03/24 1246 MR#: [id number] Acct: [id number] Name: ALEXANDRUABNERMICHAEL Augusta Rep #:[id number] : 1940 84 From: Virgil Souza [...] the left vertebral artery. Procedure Carotid Duplex 26788. This is a Carotid Duplex examination using B-mode, color flow and specral Doppler. Exam performed in department. VL/Carotid Duplex Ultrasound Interpretation Summary Mild (<50%) stenosis right extracranial internal carotid. Mild (<50%) stenosis left extracranial internal carotid. Patent and antegrade vertebrals bilaterally. Ordering Physician: Anabel Horne Referring Physician: Michael Puga Performed By: Ernestine Elliott, [facility], RVT 07/03/241805 Date _ Virgil Her MD CC: Dr. Michael Puga DO; NIDA Katz ~ Date Dictated: 07/03/24 1246 Date Transcribed: 07/03/241805 It Systems Engineer: Signed [facility] Work Phone: [facility] 06-26-2024 [facility] Telephone (FAMPWS) MICHAEL MEIER ([id number]) 1940 F Date Time Provider Department 06/26/24 MICHAEL PUGA [facility] During your visit today, we recorded [...] reports provider was going to check with [facility] about taking it since it can cause SOB. 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 and see if they are concerned with her shortness of breath and respirator symptoms potentially being secondary to SE from Amiodarone and if any options to change this anti arrhythmic on their end? DO Rodrigo Dow Brittany L, MA 06/28/2024 11:40 AM Signed Printed telephone encounter with cover sheet AND faxed to Dr. Hickey [phone]. Advised on cover sheet to respond with blow mold machine operator's recommendations. Will wait for fax back. Renea [...] NEC [D23 (more content not included)... Normal [facility] CNOVon 06-21-2024 CNOV Office Visit (FAMPWS ) ALEXANDRUYUKOMICHAEL Augusta ([id number]) 1940 F Date Time Provider Department 06/21/24 5:20 PM [facility] During your visit today, we recorded [...] and albuterol. She has been seen by Quantitative Analyst Marketing as well as Dr. Hickey/Computer Methods Analyst at [facility] for follow up after discharge home. She [...] ACETBLR/PROX FEM PROSTC AGRFT/ALGRFT Left 07/2016 ARTHRP [facility] CONDYLEANDPLATU MEDIALANDLAT COMPARTMENTS 11/15/2009 Knee replacement, total -[facility] [facility] ARTHRP E CONDYLEANDPLATU MEDIALANDLAT COMPARTMENTS 12/30/2009 Right knee replaced COLONOSCOPY FLX DX W/COLLJ SPEC WHEN PFRMD 06/29/2017 Colonoscopy EGD 10/17/2020 EGD W/O [facility] SPEC VARICIES INJ 01/08/2022 EGD W/O [facility] SPEC VARICIES INJ 03/31/2024 [place] ESOPHAGOGASTRODUODENOSCOPY TRANSORAL DIAGNOSTIC 11/29/2000 EGD ESOPHAGOGASTRODUODENOSCOPY TRANSORAL [...] - Mo (more content not included)... Normal [facility] Priscila 06-06-2024 [facility] ALEXANDRUMICHAEL HOWARD ([id number]) 1940 F Date Time Provider Department 06/06/24 MICHAEL PUGA During your visit today, we recorded the following information about you: Constance Ervin LPN 06/06/2024 11:54 AM Signed Pt calls for lab results done at [facility] on 06/02/24. Results are scanned in the [...] [L85.3] 12/01/2013 (more content not included)... Normal [facility] Albumin to globulin ratioOrd ered By: Michael Puga on 06-02-2024 Albumin/Globulin [Mass ratio] 1.0 {ratio} 0.9-2.4 [facility] Bilirubin, totalOrdered By: Michael Puga on 06-02-2024 Bilirubin [Mass/Vol] 0.60 mg/dL 0.20-1.[address] [facility] Comment on above: For patients on eltr ombopag therapy, use of Dimension [place] TBIL is not recommended. Blood urea nitrogen (BUN)/cr eatinine ratioOrdered By: Michael Puga on 06-02-2024 Urea nitrogen/Creatinine [Mass ratio] 33.2 mg/mg High 10-20 [facility] Carbon dioxide measurementOr dered By: Michael Puga on 06-02-2024 CO2 [Moles/Vol] 29.0 mmol/L 21.0-32.0 [facility] Chloride measurementOrdered By: Michael Puga on 06-02-2024 Chloride [Moles/Vol] 99 mmol/L 98-107 [facility] Comprehensive Metabolic Prof ilon 06-02-2024 Albumin [Mass/Vol] 3.3 g/dL Normal 3.2-5.0 [facility] Comment on above: Performed By: #### L 500.4050 #### [facility] [address] [place], [address] Albumin/Globulin [Mass ratio] 1.0 {ratio} Normal 0.9-2.4 [facility] Comment on above: Performed By: #### L 500.4050 #### [facility] [address] [place], [address] ALK P 85 U/L Normal 45-117 [facility] Comment on above: Performed By: #### L 500.4050 #### [facility] [address] [place], [address] ALT [Catalytic activity/Vol] 84 U/L High 13-56 [facility] Comment on above: Performed By: #### L 500.4050 #### [facility] [address] [place], [address] AST [Catalytic activity/Vol] 51 U/L High 15-37 [facility] Comment on above: Performed By: #### L 500.4050 #### [facility] [address] [place], [address] Bilirubin [Mass/Vol] 0.60 mg/dL Normal 0.20-1.00 [facility] Comment on above: Result Comment: For patients on eltrombopag therapy, use of Dimension [place] TBIL is not recommended. Performed By: #### L 500.4050 #### [facility] [address] [place], [address] BUN/CRE 33.2 RATIO High 10-20 [facility] Comment on above: Performed By: #### L 500.4050 #### [facility] [address] [place], [address] CA,Total 9.1 mg/dL Normal 8.5-10.1 [facility] Comment on above: Performed By: #### L 500.4050 #### [facility] [address] [place], [address] Chloride [Moles/Vol] 99 mmol/L Normal 98-107 [facility] Comment on above: Performed By: #### L 500.4050 #### [facility] [address] [place], [address] CO2 [Moles/Vol] 29.0 mmol/L Normal 21.0-32.0 [facility] Comment on above: Performed By: #### L 500.4050 #### [facility] [address] [place], [address] Creatinine [Mass/Vol] 0.87 mg/dL Normal 0.55-1.02 [facility] Comment on above: Result Comment: The validity of the calculated GFR GFRAA in patients over 70 years has not been determined. Clinical correlation is essential. Performed By: #### L 500.4050 #### [facility] [address] [place], [address] EST GFR - AA 80 mL/min Normal >60 [facility] Comment on above: Result Comment: Afri can Congolese GFR Calc Performed By: #### L 500.4050 #### [facility] [address] [place], [address] GAP 6 Normal 5-15 [facility] Comment on above: Performed By: #### L 500.4050 #### [facility] [address] [place], [address] GFR/1.73 sq M.predicted among non-blacks MDRD (S/P/Bld) [Vol rate/Area] 66 mL/min/{1.73_m2} Normal >60 [facility] Comment on above: Result Comment: Non- GFR Calc Performed By: #### L 500.4050 #### [facility] [address] [place], [address] Globulin (S) [Mass/Vol] 3.4 g/dL Normal 2.2-4.2 [facility] Comment on above: Performed By: #### L 500.4050 #### [facility] [address] [place], [address] Glucose [Mass/Vol] 99 mg/dL Normal 74-106 [facility] Comment on above: Performed By: #### L 500.4050 #### [facility] [address] [place], [address] Potassium [Moles/Vol] 5.1 mmol/L Normal 3.5-5.1 [facility] Comment on above: Performed By: #### L 500.4050 #### [facility] [address] [place], [address] Sodium [Moles/Vol] 133 mmol/L Low 136-145 [facility] Comment on above: Performed By: #### L 500.4050 #### [facility] [address] [place], [address] T PROT 6.7 g/dL Normal 6.4-8.2 [facility] Comment on above: Performed By: #### L 500.4050 #### [facility] [address] [place], [place], [address] Urea nitrogen [Mass/Vol] 29 mg/dL High 7-18 [facility] Comment on above: Performed By: #### L 500.4050 #### [facility] [address] [place], [place], [address] Estimated glomerular filtrat ion rate (GFR) AmericanOrdered By: Michael Puga on 06-02-2024 Estimated GFR (MDRD) Amer 80 mL/min >60 [facility] Comment on above: GFR Calc Glomerular filtration rate ( GFR) estimationOrdered By: Michael Puga on 06-02-2024 Estimated GFR (MDRD) Non-Af Amer 66 mL/min >60 [facility] Comment on above: Non- GFR Calc Glucose measurementOrdered B y: Michael Puga on 06-02-2024 Glucose [Mass/Vol] 99 mg/dL 74-106 [facility] Laboratory - Chemistry and C hemistry - challengeOrdered By: Michael Puga on 06-02-2024 AST [Catalytic activity/Vol] 51 U/L High 15-37 [facility] Potassium measurementOrdered By: Michael Puga on 06-02-2024 Potassium [Moles/Vol] 5.1 mmol/L 3.5-5.1 [facility] Serum anion gap measurementO rdered By: Michael Puga on 06-02-2024 Anion gap [Moles/Vol] 6 mmol/L 5-15 [facility] Serum globulin measurementOr dered By: Michael Puga on 06-02-2024 Globulin (S) [Mass/Vol] 3.4 g/dL 2.2-4.2 [facility] Serum or plasma alanine sprague otransferase (ALT) measurementOrdered By: Michael Puga on 06-02-2024 ALT [Catalytic activity/Vol] 84 U/L High 13-56 [facility] Serum or plasma albumin julee urement (mass/volume)Ordered By: Michael Puga on 06-02-2024 Albumin [Mass/Vol] 3.3 g/dL 3.2-5.0 [facility] Serum or plasma alkaline rachel sphatase measurementOrdered By: Michael Puga on 06-02-2024 ALP [Catalytic activity/Vol] 85 U/L 45-117 [facility] Serum or plasma calcium julee urement (mass/volume)Ordered By: Michael Puga on 06-02-2024 Calcium [Mass/Vol] 9.1 mg/dL 8.5-10.1 [facility] Serum or plasma creatinine m easurement (mass/volume)Ordered By: Michael Puga on 06-02-2024 Creatinine [Mass/Vol] 0.87 mg/dL 0.55-1.02 [facility] Comment on above: The validity of the calculated GFR & GFRAA in patients over 70 years has not been determined. Clinical correlation is essential. Serum or plasma urea nitroge n measurement (mass/volume)Ordered By: Michael Puga on 06-02-2024 Urea nitrogen [Mass/Vol] 29 mg/dL High 7-18 [facility] Sodium levelOrdered By: Susanna Puga on 06-02-2024 Sodium [Moles/Vol] 133 mmol/L Low 136-145 [facility] Total proteinOrdered By: Vance Puga on 06-02-2024 Protein [Mass/Vol] 6.7 g/dL 6.4-8.2 [facility] Cardiology Visit Reporton Cardiology Visit Report [facility] [address] [place] [address]. [address] [place] [address] OFFICE VISIT Date of Service: 06/01/24 MR#: [id number] Acct: [id number] Name: MICHAEL MEIER Rep #: [id number] : 1940 Provider: NIDA Carbajal Age/Sex: 84/F Location: [facility] Status: Signed HPI HPI History of [...] 4 M FU/ Naveen Gonzalez @ 1 Buffer Machine Required: No Is patient in pain?: No [...] you fallen in the past year?: No [facility] Medical History (Updated 06/01/24 @ 14:03 by Anabel Horne PA, PA) group home current use of amiodarone Right carotid bruit Pulmonary hypertension Obesity TIA (transient isch (more content not included)... Normal [facility] Pacemaker Checkon 06-01-2024 Pacemaker Check [facility] [address] [place] [address] Pacemaker Check Date of Service: 06/01/241604 MR#: [id number] Acct: [id number] Name: HARDEEPMICHAEL Augusta Rep #: [id number] : 1940 From: Yuki Harris Age/Sex: 84/F Location: [facility] Status: Signed Billing Codes PM Device Codes: 65739 PM Dev Prog Eval, Dual Assessment and Plan Assessment and Plan (1) History of permanent cardiac pacemaker placement: Status: Chronic Comment: 01/29/2011; Gen Change 06/09/21 (2) Sick sinus syndrome: Status: Chronic (3) Paroxysmal atrial fibrillation: Status: Chronic 06/01/24 160 Date Yuki Coxigncarlita Signature: Date (if applicable) CC: [facility] Priscila 05-30-2024 CNPN Telephone (FAMPWS) MICHAEL MEIER ([id number]) 1940 F Date Time Provider Department 05/30/24 MICHAEL PUGAPSHELL During your visit today, we recorded the following information about you: Loli Adamson, GLYNN 05/30/2024 8:31 AM Signed Pt reports she had a CMP done at [facility] on 05/25/24 to check her kidneys and glucose. We received a BNP and CBC from [facility] under labs. Do not see a CMP. Patient asking Key to review and advise. Key Portillo APRN.CARMELINA 05/31/2024 7:36 AM Signed I don't see CMP results either. Can we call [facility] and confirm this was drawn. If not, have her get it done. Thank you, Key Portillo APRN.Amanda Heath, GLYNN 05/31/2024 10:09 AM Signed Qing with [facility] calls in regards to below. CMP was not completed. Re-faxed ordered to [facility] lab and Qing will add a nurse visit for this week to collect specimen as soon as possible. GLYNN Montiel Alyson Taylor, APRN.CARMELINA 05/31/2024 10:45 AM Signed Noted. Thank you, Key Portillo APRN.GERICARE AIDE Allergies As of Date: 05/30/2024 Noted Allergy [...] Solar Lentig (more content not included)... Normal [facility] BNP (brain natriuretic pepti de measurement)Ordered By: Michael Puga on 05-25-2024 Natriuretic peptide B (Bld) [Mass/Vol] 33.8 pg/mL 0-100 [facility] BNP,B-Type NATRIURETIC PEPTI Kenyatta 05-25-2024 Natriuretic peptide B (Bld) [Mass/Vol] 33.8 pg/mL Normal 0-100 [facility] Comment on above: Performed By: #### L 500.3400, L501.2450 #### [facility] [address] [place], [address] CBC-Complete Blood Cnt No Di ffon 05-25-2024 Erythrocyte distribution width (RBC) [Ratio] 15.5 % High 11.6-14.6 [facility] Comment on above: Performed By: #### L 500.3400, L501.2450 #### [facility] [address] [place], [address] Hematocrit (Bld) [Volume fraction] 37.3 % Normal 37-47 [facility] Comment on above: Performed By: #### L 500.3400, L501.2450 #### [facility] [address] [place], [address] Hemoglobin (Bld) [Mass/Vol] 12.6 g/dL Normal 12.0-15.0 [facility] Comment on above: Performed By: #### L 500.3400, L501.2450 #### [facility] [address] [place], [address] MCH (RBC) [Entitic mass] 28.4 pg Normal 27.0-32.0 [facility] Comment on above: Performed By: #### L 500.3400, L501.2450 #### [facility] [address] [place], [address] MCHC (RBC) [Mass/Vol] 33.8 g/dL Normal 32-36 [facility] Comment on above: Performed By: #### L 500.3400, L501.2450 #### [facility] [address] [place], [address] MCV (RBC) [Entitic vol] 84.0 fL Normal 81-99 [facility] Comment on above: Performed By: #### L 500.3400, L501.2450 #### [facility] [address] [place], [address] Platelet mean volume (Bld) [Entitic vol] 11.1 fL Normal 6.2-12.0 [facility] Comment on above: Performed By: #### L 500.3400, L501.2450 #### [facility] [address] [place], [address] Platelets (Bld) [#/Vol] 256 10*3/uL Normal 150-450 [facility] Comment on above: Performed By: #### L 500.3400, L501.2450 #### [facility] [address] [place], [address] RBC (Bld) [#/Vol] 4.44 10*6/uL Normal 4.2-5.4 [facility] Comment on above: Performed By: #### L 500.3400, L501.2450 #### [facility] [address] [place], [address] RDW SD 47.2 fl High 35.1-43.9 [facility] Comment on above: Performed By: #### L 500.3400, L501.2450 #### [facility] [address] [place], [address] WBC (Bld) [#/Vol] 10.3 10*3/uL Normal 4.4-11.0 [facility] Comment on above: Performed By: #### L 500.3400, L501.2450 #### [facility] [address] [place], [address] Priscila 05-25-2024 CARMELINAN Telephone ([facility]) MICHAEL MEIER ([id number]) 1940 F Date Time Provider Department 05/25/24 MICHAEL PUGA During your visit today, we recorded the following information about you: Katia Marcano, GLYNN 05/25/2024 9:51 AM Signed Bhavna MAKI CM with [facility] called in and reports Pt had been taken off her Hydrochlorothiazide per Cardiology for a while, but the last time she was in the hospital she was put back on 12.5 mg. She states the Pt is going to need a script called in if she is to be taking them to [facility]. I told her I didn't see [...] 05/11. I see from discharge instructions from [facility] that she was taking HCTZ at that time. I would recommend staying on HCTZ regimen at this. Rx sent to pharmacy. Does she still have cards appointment with Dr. Hickey on 06/01 -- if so, they can decide if they want to keep her on this medication or not at that time. Thank you, Key Portillo APRN.GERICARE AIDE The following approved medication requests have been transmitted electronically. Requested Prescriptions Signed Prescriptions Disp Refills hydroCHLOROthiazide 12.5 mg capsule 90 capsule 0 Sig: Take 1 capsule by mouth once daily. Authorizing Provider: KEY PORTILLO APRN.GERICARE AIDE Marisol Cano LPN 05/25/2024 10:17 AM Signed [...] for Visit: Patient Update [1234] Medication Question [0228] Order(s):hydroCHLOROthiazide 12.5 mg capsuleTake 1 capsule by [...] 100 m (more content not included)... Normal [facility] Erythrocyte distribution wid th ratioOrdered By: Michael Puga on 05-25-2024 Erythrocyte distribution width (RBC) [Ratio] 15.5 % High 11.6-14.6 [facility] Erythrocyte distribution wid th standard deviationOrdered By: Michael Puga on 05-25-2024 Erythrocyte distribution width (RBC) [Entitic vol] 47.2 fL High 35.1-43.9 [facility] Hematocrit Auto (Bld) [Volum e fraction]Ordered By: Michael Puga on 05-25-2024 Hematocrit (Bld) [Volume fraction] 37.3 % 37-47 [facility] Hemoglobin measurementOrdere d By: Michael Puga on 05-25-2024 Hemoglobin (Bld) [Mass/Vol] 12.6 g/dL 12.0-15.0 [facility] MCV (mean corpuscular volume ) determinationOrdered By: Michael Puga on 05-25-2024 MCV (RBC) [Entitic vol] 84.0 fL 81-99 [facility] Mean corpuscular hemoglobin (MCH) determinationOrdered By: Michael Puga on 05-25-2024 MCH (RBC) [Entitic mass] 28.4 pg 27.0-32.0 [facility] Mean corpuscular hemoglobin concentration (MCHC) determinationOrdered By: Michael Puga on 05-25-2024 MCHC (RBC) [Mass/Vol] 33.8 g/dL 32-36 [facility] Mean platelet volume determi nationOrdered By: Michael Puga on 05-25-2024 Platelet mean volume (Bld) [Entitic vol] 11.1 fL 6.2-12.0 [facility] Platelet countOrdered By: Nellie Puga on 05-25-2024 Platelets (Bld) [#/Vol] 256 10*3/uL 150-450 [facility] RBC Auto (Bld) [#/Vol]Ordere d By: Michael Puga on 05-25-2024 RBC (Bld) [#/Vol] 4.44 10*6/uL 4.2-5.4 [facility] White blood cell (WBC) count Ordered By: Michael Puga on 05-25-2024 WBC (Bld) [#/Vol] 10.3 10*3/uL 4.4-11.0 [facility] Bilirubin, Directon 05-19-19 25 Bilirubin.direct [Mass/Vol] 0.28 mg/dL Normal 0.00-0.30 [facility] Comment on above: Performed By: #### L 500.3400, L501.2450 #### [facility] [address] [place], [address] Priscila 05-19-2024 LORRI Telephone (FAMWS) MICHAEL MEIER ([id number]) 1940 F Date Time Provider Department 05/19/24 MICHAEL PUGA During your visit today, we recorded the following information about you: Chloe Castro LPN 05/19/2024 12:22 PM Signed Pt calling for results of lab work she had done in her home yesterday, Results are I Epic. Please advise pt. CAROLINE Ramirez Alyson Taylor, APRN.GERICARE AIDE 05/19/2024 2:40 PM Signed Please let patient [...] 05/22/2024 12:31 PM Signed Marifer nurse with [facility] calling regarding recently ordered lab orders. Information provided and lab orders faxed to [facility]. Tameka Marin RN Allergies As of Date: [...] [I50.9] Order(s):NT PRO BNP [SQNTBNP] Order #: [id number] FUTURE COMPREHENSIVE METABOLIC PANEL [SQCMP] Order #: [id number] FUTURE Prescriptions as of 05/22/2024 - furosemide [...] 01/20/2007 09 (more content not included)... Normal [facility] BNP (brain natriuretic pepti de measurement)Ordered By: Michael Puga on 05-18-2024 Natriuretic peptide B (Bld) [Mass/Vol] 38.6 pg/mL 0-100 [facility] BNP,B-Type NATRIURETIC PEPTI Kenyatta 05-18-2024 Natriuretic peptide B (Bld) [Mass/Vol] 38.6 pg/mL Normal 0-100 [facility] Comment on above: Performed By: #### L 500.3400, L501.2450 #### [facility] [address] [place], [address] Bilirubin directOrdered By: Michael Puga on 05-18-2024 Bilirubin.direct [Mass/Vol] 0.28 mg/dL 0.00-0.30 [facility] CBC-Complete Blood Cnt No Di ffon 05-18-2024 Erythrocyte distribution width (RBC) [Ratio] 15.9 % High 11.6-14.6 [facility] Comment on above: Performed By: #### L 500.3400, L501.2450 #### [facility] [address] [place], [address] Hematocrit (Bld) [Volume fraction] 35.5 % Low 37-47 [facility] Comment on above: Performed By: #### L 500.3400, L501.2450 #### [facility] [address] [place], [address] Hemoglobin (Bld) [Mass/Vol] 11.6 g/dL Low 12.0-15.0 [facility] Comment on above: Performed By: #### L 500.3400, L501.2450 #### [facility] [address] [place], [address] MCH (RBC) [Entitic mass] 27.8 pg Normal 27.0-32.0 [facility] Comment on above: Performed By: #### L 500.3400, L501.2450 #### [facility] [address] [place], [address] MCHC (RBC) [Mass/Vol] 32.7 g/dL Normal 32-36 [facility] Comment on above: Performed By: #### L 500.3400, L501.2450 #### [facility] [address] [place], [address] MCV (RBC) [Entitic vol] 84.9 fL Normal 81-99 [facility] Comment on above: Performed By: #### L 500.3400, L501.2450 #### [facility] [address] [place], [address] Platelet mean volume (Bld) [Entitic vol] 11.0 fL Normal 6.2-12.0 [facility] Comment on above: Performed By: #### L 500.3400, L501.2450 #### [facility] [address] [place], [address] Platelets (Bld) [#/Vol] 263 10*3/uL Normal 150-450 [facility] Comment on above: Performed By: #### L 500.3400, L501.2450 #### [facility] [address] [place], [address] RBC (Bld) [#/Vol] 4.18 10*6/uL Low 4.2-5.4 [facility] Comment on above: Performed By: #### L 500.3400, L501.2450 #### [facility] [address] [place], [address] RDW SD 48.9 fl High 35.1-43.9 [facility] Comment on above: Performed By: #### L 500.3400, L501.2450 #### [facility] [address] [place], [address] WBC (Bld) [#/Vol] 9.2 10*3/uL Normal 4.4-11.0 [facility] Comment on above: Performed By: #### L 500.3400, L501.2450 #### [facility] [address] [place], [address] Comprehensive Metabolic Prof ilon 05-18-2024 Albumin [Mass/Vol] 3.4 g/dL Normal 3.2-5.0 [facility] Comment on above: Performed By: #### L 500.3400, L501.2450 #### [facility] [address] [place], [address] Albumin/Globulin [Mass ratio] 1.1 {ratio} Normal 0.9-2.4 [facility] Comment on above: Performed By: #### L 500.3400, L501.2450 #### [facility] [address] [place], [address] ALK P 77 U/L Normal 45-117 [facility] Comment on above: Performed By: #### L 500.3400, L501.2450 #### [facility] [address] [place], [address] ALT [Catalytic activity/Vol] 30 U/L Normal 13-56 [facility] Comment on above: Performed By: #### L 500.3400, L501.2450 #### [facility] [address] [place], [address] AST [Catalytic activity/Vol] 25 U/L Normal 15-37 [facility] Comment on above: Performed By: #### L 500.3400, L501.2450 #### [facility] [address] [place], [address] Bilirubin [Mass/Vol] 1.00 mg/dL Normal 0.20-1.00 [facility] Comment on above: Result Comment: For patients on eltrombopag therapy, use of Dimension [place] TBIL is not recommended. Performed By: #### L 500.3400, L501.2450 #### [facility] [address] [place], [address] BUN/CRE 26.7 RATIO High 10-20 [facility] Comment on above: Performed By: #### L 500.3400, L501.2450 #### [facility] [address] [place], [address] CA,Total 9.0 mg/dL Normal 8.5-10.1 [facility] Comment on above: Performed By: #### L 500.3400, L501.2450 #### [facility] [address] [place], [address] Chloride [Moles/Vol] 90 mmol/L Low 98-107 [facility] Comment on above: Performed By: #### L 500.3400, L501.2450 #### [facility] [address] [place], [address] CO2 [Moles/Vol] 29.0 mmol/L Normal 21.0-32.0 [facility] Comment on above: Performed By: #### L 500.3400, L501.2450 #### [facility] [address] [place], [address] Creatinine [Mass/Vol] 1.05 mg/dL High 0.55-1.02 [facility] Comment on above: Result Comment: The validity of the calculated GFR GFRAA in patients over 70 years has not been determined. Clinical correlation is essential. Performed By: #### L 500.3400, L501.2450 #### [facility] [address] [place], [address] EST GFR - AA 64 mL/min Normal >60 [facility] Comment on above: Result Comment: Afri can Congolese GFR Calc Performed By: #### L 500.3400, L501.2450 #### [facility] [address] [place], [address] GAP 9 Normal 5-15 [facility] Comment on above: Performed By: #### L 500.3400, L501.2450 #### [facility] [address] [place], [address] GFR/1.73 sq M.predicted among non-blacks MDRD (S/P/Bld) [Vol rate/Area] 53 mL/min/{1.73_m2} Low >60 [facility] Comment on above: Result Comment: Non- GFR Calc Performed By: #### L 500.3400, L501.2450 #### [facility] [address] [place], [address] Globulin (S) [Mass/Vol] 3.1 g/dL Normal 2.2-4.2 [facility] Comment on above: Performed By: #### L 500.3400, L501.2450 #### [facility] [address] [place], [address] Glucose [Mass/Vol] 99 mg/dL Normal 74-106 [facility] Comment on above: Performed By: #### L 500.3400, L501.2450 #### [facility] [address] [place], [address] Potassium [Moles/Vol] 4.0 mmol/L Normal 3.5-5.1 [facility] Comment on above: Performed By: #### L 500.3400, L501.2450 #### [facility] [address] [place], [address] Sodium [Moles/Vol] 128 mmol/L Low 136-145 [facility] Comment on above: Performed By: #### L 500.3400, L501.2450 #### [facility] [address] [place], [address] T PROT 6.5 g/dL Normal 6.4-8.2 [facility] Comment on above: Performed By: #### L 500.3400, L501.2450 #### [facility] [address] [place], [address] Urea nitrogen [Mass/Vol] 28 mg/dL High 7-18 [facility] Comment on above: Performed By: #### L 500.3400, L501.2450 #### [facility] [place], [address] Erythrocyte distribution wid th ratioOrdered By: Michael Puga on 05-18-2024 Erythrocyte distribution width (RBC) [Ratio] 15.9 % High 11.6-14.6 [facility] Erythrocyte distribution wid th standard deviationOrdered By: Michael Pgua on 05-18-2024 Erythrocyte distribution width (RBC) [Entitic vol] 48.9 fL High 35.1-43.9 [facility] Hematocrit Auto (Bld) [Volum e fraction]Ordered By: Micahel Puga on 05-18-2024 Hematocrit (Bld) [Volume fraction] 35.5 % Low 37-47 [facility] Hemoglobin measurementOrdere d By: Michael Puga on 05-18-2024 Hemoglobin (Bld) [Mass/Vol] 11.6 g/dL Low 12.0-15.0 [facility] MCV (mean corpuscular volume ) determinationOrdered By: Michael Puga on 05-18-2024 MCV (RBC) [Entitic vol] 84.9 fL 81-99 [facility] Mean corpuscular hemoglobin (MCH) determinationOrdered By: Michael Puga on 05-18-2024 MCH (RBC) [Entitic mass] 27.8 pg 27.0-32.0 [facility] Mean corpuscular hemoglobin concentration (MCHC) determinationOrdered By: Michael Puga on 05-18-2024 MCHC (RBC) [Mass/Vol] 32.7 g/dL 32-36 [facility] Mean platelet volume determi nationOrdered By: Michael Puga on 05-18-2024 Platelet mean volume (Bld) [Entitic vol] 11.0 fL 6.2-12.0 [facility] Platelet countOrdered By: Nellie Puga on 05-18-2024 Platelets (Bld) [#/Vol] 263 10*3/uL 150-450 [facility] RBC Auto (Bld) [#/Vol]Ordere d By: Michael Puga on 05-18-2024 RBC (Bld) [#/Vol] 4.18 10*6/uL Low 4.2-5.4 [facility] White blood cell (WBC) count Ordered By: Michael Puga on 05-18-2024 WBC (Bld) [#/Vol] 9.2 10*3/uL 4.4-11.0 [facility] MICHAEL [facility]IER ([id number]) 1940 F Date Time Provider Department 05/16/24 MICHAEL PUGA [facility] During your visit today, we recorded the following information about you: Amanda Pratt RN 05/16/2024 10:26 AM Signed Bhavna with [facility] calls to report duplicate therapy between lasix and spironolactone and lasix and hydralazine. Bhavna is asking if provider wants all medications continued. Hydralazine and Spironolactone are on current medication list but prescription not sent to pharmacy. Please review and advise. Bhavna is requesting a call back at [phone]. GLYNN Montiel Jordan L, 05/17/2024 9:02 AM Signed Please clarify with pharmacy and patient her current diuretic/BLOOD PRESSURE medications that she is picking up and taking Marcie Rodriguez LPN 05/17/2024 9:50 AM Signed Phoned [facility] pharmacy with clarification on current meds. Spironolactone 25 mg daily was prescribed by the [facility] [place] [facility] also hydralazine 25 mg was prescribed by [facility] [place] [facility]. Lasix 20 mg was just prescribed by Key Portillo, then Lasix 40 mg was prescribed by [facility] May 02. Left message with Bhavna [facility] HUE about above information. Please review and [...] if she can. Pt will go to [place] and get it drawn in the morning. [...] RN 05/18/2024 10:04 AM S[address] Bhavna MAKI [facility] called in and reports Pt isn't [...] she was able to drawn. Key Portillo APRN.GERICARE AIDE 05/18/2024 10:50 AM Signed Most important is CMP to have drawn if able. Agree with below. Pt needs to discontinue lasix all together. This was ordered by [facility] after recent admission for new onset CHF exacerbation. Initially ordered for 40 mg daily, I decreased to 20 mg daily after kidney function was so poor and told pt to repeat labs in 5 days with plan to discontinue all together if swelling and weight gain remained stable with decreased. Thank you, Key Bond (more content not included)... Normal [facility] 05-12-2024 CNPN Telephone (FAMPWS) MICHAEL MEIER ([id number]) 1940 F Date Time Provider Department 05/12/24 [...] that time. Pt verbalizes understanding. Key Portillo APRN.GERICARE AIDE 05/12/2024 2:23 PM Signed Agree with below. We are repeating BNP lab work in 5-7 days as well to check for this. Thank you, Key Portillo APRN.GERICARE AIDE Allergies As of Date: 05/12/2024 Noted Allergy [...] Fully Assessed Reason for Visit: Patient Question [5357] Prescriptions as of 05/12/2024 - furosemide (LASIX) [...] [L82.0] 12/01/2013 (more content not included)... [facility] MICHAEL MEIER ([id number]) 1940 F Date Time Provider Department 05/12/24 [...] yesterday in appointment but nothing was at [facility] when she went. Key Portillo APRN.CNP 05/12/2024 [...] 0 HEPATIC FUNCTION PNL [SQHFP] Order #: [id number] FUTURE COMPLETE BLOOD COUNT AND DIFFERENTIAL [SQCBCDIF] Order #: [id number] FUTURE NT PRO BNP [SQNTBNP] Order #: [id number] FUTURE LORazepam (ATIVAN) 0.5 mgTake 1 tablet [...] HCl (OPT (more content not included)... Normal [facility] CBC W Auto Differential pane l (Bld)on 05-11-2024 Basophils (Bld) [#/Vol] 0.09 10*3/uL [facility] Basophils/100 WBC (Bld) 0.7 % [facility] Differential cell count method Nom (Bld) Auto [facility] Eosinophils (Bld) [#/Vol] 0.21 10*3/uL [facility] Eosinophils/100 WBC (Bld) 1.7 % [facility] Erythrocyte distribution width (RBC) [Ratio] 16.6 % High 11.5 - 15.0 % [facility] Hematocrit (Bld) [Volume fraction] 42.0 % 36.0 - 46.0 % [facility] Hemoglobin (Bld) [Mass/Vol] 13.4 g/dL 11.5 - 15.5 g/dL [facility] Immature granulocytes (Bld) [#/Vol] 0.05 10*3/uL [facility] Immature granulocytes/100 WBC (Bld) 0.4 % [facility] Interpretation and review of laboratory results Abnormal [facility] Lymphocytes (Bld) [#/Vol] 1.48 10*3/uL [facility] Lymphocytes/100 WBC (Bld) 12.3 % [facility] MCH (RBC) [Entitic mass] 27.2 pg 26.0 - 34.0 pg [facility] MCHC (RBC) [Mass/Vol] 31.9 g/dL 30.5 - 36.0 g/dL [facility] MCV (RBC) [Entitic vol] 85.2 fL 80.0 - 100.0 fL [facility] Monocytes (Bld) [#/Vol] 1.05 10*3/uL High NINF [facility] Monocytes/100 WBC (Bld) 8.7 % [facility] Neutrophils (Bld) [#/Vol] 9.14 10*3/uL High [facility] Neutrophils/100 WBC (Bld) 76.2 % [facility] Nucleated RBC (Bld) [#/Vol] NINF [facility] Nucleated RBC/100 WBC (Bld) [Ratio] 0.0 % /100 WBC [facility] Platelet mean volume (Bld) [Entitic vol] 11.3 fL 9.0 - 12.7 fL [facility] Platelets (Bld) [#/Vol] 346 10*3/uL [facility] RBC (Bld) [#/Vol] 4.93 10*6/uL 3.90 - 5.20 m/uL [facility] WBC (Bld) [#/Vol] 12.02 10*3/uL High [facility] Basophils (Bld) [#/Vol] 0.09 10*3/uL Normal <0.11 [facility] Comment on above: Order Comment: Speci men Type: BLOOD SPECIMENOrdering Facility: [facility] Address: [address] [place] [address] Performed By: #### 5 7021-8 ####[facility]CL[facility] [id number] [address] [place] Basophils/100 WBC (Bld) 0.7 % Normal [facility] Comment on above: Order Comment: Speci men Type: BLOOD SPECIMENOrdering Facility: [facility] Address: [address] [place] [address] Performed By: #### 5 7021-8 ####[facility] LABCLIA [id number] [place] [address] [place] Differential cell count method Nom (Bld) Auto Normal [facility] Comment on above: Order Comment: Speci men Type: BLOOD SPECIMENOrdering Facility: [facility] Address: [address] [place] [address] Performed By: #### 5 7021-8 ####[facility] LABCLIA [id number] [place] [address] [place] Eosinophils (Bld) [#/Vol] 0.21 10*3/uL Normal <0.46 [facility] Comment on above: Order Comment: Speci men Type: BLOOD SPECIMENOrdering Facility: [facility] Address: [address] [place] [address] Performed By: #### 5 7021-8 ####[facility] LABCLIA [id number] [place] [address] [place] Eosinophils/100 WBC (Bld) 1.7 % Normal [facility] Comment on above: Order Comment: Speci men Type: BLOOD SPECIMENOrdering Facility: [facility] Address: [address] [place] [address] Performed By: #### 5 7021-8 ####[facility] LABIA [id number] [place] [address] [place] Erythrocyte distribution width (RBC) [Ratio] 16.6 % High 11.5-15.0 [facility] Comment on above: Order Comment: Speci men Type: BLOOD SPECIMENOrdering Facility: [facility] Address: [address] [place] [address] Performed By: #### 5 7021-8 ####[facility]CLIA [id number] [place] [address] [place] Hematocrit (Bld) [Volume fraction] 42.0 % Normal .0-46.0 [facility] Comment on above: Order Comment: Speci men Type: BLOOD SPECIMENOrdering Facility: [facility] Address: [address] [place] [address] Performed By: #### 5 7021-8 ####[facility] LABCLIA [id number] [place] [address] [place] Hemoglobin (Bld) [Mass/Vol] 13.4 g/dL Normal 11.5-15.5 [facility] Comment on above: Order Comment: Speci men Type: BLOOD SPECIMENOrdering Facility: [facility] Address: [address] [place] [address] Performed By: #### 5 7021-8 ####[facility] LABIA [id number] [place] [address] [place] Immature granulocytes (Bld) [#/Vol] 0.05 10*3/uL Normal <0.10 [facility] Comment on above: Order Comment: Speci men Type: BLOOD SPECIMENOrdering Facility: [facility] Address: [address] [place] [address] Performed By: #### 5 7021-8 ####[facility] LABIA [id number] [place] [address] [place] Immature granulocytes/100 WBC (Bld) 0.4 % Normal [facility] Comment on above: Order Comment: Speci men Type: BLOOD SPECIMENOrdering Facility: [facility] Address: [address] [place] [address] Performed By: #### 5 7021-8 ####[facility] LABIA [id number] [place] [address] [place] Lymphocytes (Bld) [#/Vol] 1.48 10*3/uL Normal 1.00-4.00 [facility] Comment on above: Order Comment: Speci men Type: BLOOD SPECIMENOrdering Facility: [facility] Address: [address] [place] [address] Performed By: #### 5 7021-8 ####[facility] LABIA [id number] [place] [address] [place] Lymphocytes/100 WBC (Bld) 12.3 % Normal [facility] Comment on above: Order Comment: Speci men Type: BLOOD SPECIMENOrdering Facility: [facility] Address: [address] [place] [address] Performed By: #### 5 7021-8 ####[facility] LABIA [id number] [place] [address] [place] MCH (RBC) [Entitic mass] 27.2 pg Normal 26.0-34.0 [facility] Comment on above: Order Comment: Speci men Type: BLOOD SPECIMENOrdering Facility: [facility] Address: [address] [place] [address] Performed By: #### 5 7021-8 ####[facility] LABIA [id number] [place] [address] [place] MCHC (RBC) [Mass/Vol] 31.9 g/dL Normal 30.5-36.0 [facility] Comment on above: Order Comment: Speci men Type: BLOOD SPECIMENOrdering Facility: [facility] Address: [address] [place] [address] Performed By: #### 5 7021-8 ####[facility] LABIA [id number] [place] [address] [place] MCV (RBC) [Entitic vol] 85.2 fL Normal 80.0-100.0 [facility] Comment on above: Order Comment: Speci men Type: BLOOD SPECIMENOrdering Facility: [facility] Address: [address] [place] [address] Performed By: #### 5 7021-8 ####[facility] LABIA [id number] [place] [address] [place] Monocytes (Bld) [#/Vol] 1.05 10*3/uL High <0.87 [facility] Comment on above: Order Comment: Speci men Type: BLOOD SPECIMENOrdering Facility: [facility] Address: [address] [place] [address] Performed By: #### 5 7021-8 ####[facility] LABCLIA [id number] [place] [address] [place] Monocytes/100 WBC (Bld) 8.7 % Normal [facility] Comment on above: Order Comment: Speci men Type: BLOOD SPECIMENOrdering Facility: [facility] Address: [address] [place] [address] Performed By: #### 5 7021-8 ####[facility] LABCLIA [id number] [place] [address] [place] Neutrophils (Bld) [#/Vol] 9.14 10*3/uL High 1.45-7.50 [facility] Comment on above: Order Comment: Speci men Type: BLOOD SPECIMENOrdering Facility: [facility] Address: [address] [place] [address] Performed By: #### 5 7021-8 ####[facility] LABCLIA [id number] [place] [address] [place] Neutrophils/100 WBC (Bld) 76.2 % Normal [facility] Comment on above: Order Comment: Speci men Type: BLOOD SPECIMENOrdering Facility: [facility] Address: [address] [place] [address] Performed By: #### 5 7021-8 ####[facility] LABCLIA [id number] [place] [address] [place] Nucleated RBC (Bld) [#/Vol] 10*3/uL Normal <0.01 [facility] Comment on above: Order Comment: Speci men Type: BLOOD SPECIMENOrdering Facility: [facility] Address: [address] [place] [address] Performed By: #### 5 7021-8 ####[facility] LABCLIA [id number] [place] [address] [place] Nucleated RBC/100 WBC (Bld) [Ratio] 0.0 /100 WBC Normal [facility] Comment on above: Order Comment: Speci men Type: BLOOD SPECIMENOrdering Facility: [facility] Address: [address] [place] [address] Performed By: #### 5 7021-8 ####[facility] LABIA [id number] [place] [address] [place] Platelet mean volume (Bld) [Entitic vol] 11.3 fL Normal 9.0-12.7 [facility] Comment on above: Order Comment: Speci men Type: BLOOD SPECIMENOrdering Facility: [facility] Address: [address] [place] [address] Performed By: #### 5 7021-8 ####[facility] LABIA [id number] [place] [address] [place] Platelets (Bld) [#/Vol] 346 10*3/uL Normal 150-400 [facility] Comment on above: Order Comment: Speci men Type: BLOOD SPECIMENOrdering Facility: [facility] Address: [address] [place] [address] Performed By: #### 5 7021-8 ####[facility] LABCLIA [id number] [place] [address] [place] RBC (Bld) [#/Vol] 4.93 10*6/uL Normal 3.90-5.20 [facility] Comment on above: Order Comment: Speci men Type: BLOOD SPECIMENOrdering Facility: [facility] Address: [address] [place] [address] Performed By: #### 5 7021-8 ####[facility] LABCLIA [id number] [place] [id number] [place] WBC (Bld) [#/Vol] 12.02 10*3/uL High 3.70-11.[address] [facility] Comment on above: Order Comment: Speci men Type: BLOOD SPECIMENOrdering Facility: [facility] Address: [address] [place] [address] Performed By: #### 5 7021-8 ####[facility] LABCLIA [id number] [place] [id number] [place] CNOVon 05-11-2024 CNOV Office Visit (FAMPWS ) MICHAEL MEIER ([id number]) 1940 F Date Time Provider Department 05/11/24 1:00 PM KEY PORTILLO FAMPWS During your visit today, we recorded the following information about you: Pulse Blood pressure Weight 60/minute 130/58 100.9 kg Key Portillo APRN.GERICARE AIDE 05/11/2024 2:08 PM Signed Chief Complaint Patient presents with: Transition Of Care: Was i wfor chf flae was discharged on 05/02/24 HPI Michael Meier is a 84 year old female who presents here today for Above Complaints. Michael is an established patient of Dr. Edd DO. Concerns today... Hospital discharge -- [facility] hospital admission from 04/30-05/02 d/t hypoxia and [...] ACETBLR/PROX FEM PROSTC AGRFT/ALGRFT Left 07/2016 [facility] CONDYLEANDPLATU MEDIALANDLAT COMPARTMENTS 11/15/2009 Knee replacement, total -Left - [facility]RP E CONDYLEANDPLATU MEDIALANDLAT COMPARTMENTS 12/30/2009 Right knee replaced COLONOSCOPY FLX DX W/COLLJ SPEC WHEN PFRMD 06/29/2017 Colonoscopy EGD 10/17/2020 EGD W/O [facility] SPEC VARICIES INJ 01/08/2022 EGD W/O [facility] SPEC VARICIES INJ 03/31/2024 Lito ESOPHAGOGASTRODUODENOSCOPY TRANSORAL [...] tablet by (more content not included)... Normal [facility] Comprehensive metabolic 2000 panelon 05-11-2024 Albumin [Mass/Vol] 4.1 g/dL Normal 3.9-4.9 [facility] Comment on above: Order Comment: Speci men Type: BLOOD SPECIMENOrdering Facility: [facility] Address: [address] [place] [address] Performed By: #### 2 4323-8, 3016-3, 01986-5, 3024-7 ####[facility] LABCLIA [id number] [place] [address] [place] ALP [Catalytic activity/Vol] 98 U/L Normal 34-123 [facility] Comment on above: Order Comment: Speci men Type: BLOOD SPECIMENOrdering Facility: [facility] Address: [address] [place] [address] Performed By: #### 2 4323-8, 3016-3, 62737-4, 3024-7 ####[facility] LABCLIA [id number] [place] [address] [place] ALT [Catalytic activity/Vol] 26 U/L Normal 7-38 [facility] Comment on above: Order Comment: Speci men Type: BLOOD SPECIMENOrdering Facility: [facility] Address: [address] [place] [address] Performed By: #### 2 4323-8, 3016-3, 85785-0, 3024-7 ####[facility] LABCLIA [id number] [place] [address] [place] Anion gap [Moles/Vol] 15 mmol/L Normal 8-15 [facility] Comment on above: Order Comment: Speci men Type: BLOOD SPECIMENOrdering Facility: [facility] Address: [address] [place] [address] Performed By: #### 2 4323-8, 3016-3, 15685-1, 3024-7 ####[facility] LABCLIA [id number] [place] [address] [place] AST [Catalytic activity/Vol] 29 U/L Normal 13-35 [facility] Comment on above: Order Comment: Speci men Type: BLOOD SPECIMENOrdering Facility: [facility] Address: [address] [place] [address] Performed By: #### 2 4323-8, 3016-3, 74473-4, 3024-7 ####[facility] LABCLIA [id number] [place] [address] [place] Bilirubin [Mass/Vol] 0.8 mg/dL Normal 0.2-1.3 [facility] Comment on above: Order Comment: Speci men Type: BLOOD SPECIMENOrdering Facility: [facility] Address: [address] [place] [address] Performed By: #### 2 4323-8, 3016-3, 36178-2, 3024-7 ####[facility] LABCLIA [id number] [place] [address] [place] Calcium [Mass/Vol] 9.4 mg/dL Normal 8.5-10.2 [facility] Comment on above: Order Comment: Speci men Type: BLOOD SPECIMENOrdering Facility: [facility] Address: [address] [place] [address] Performed By: #### 2 4323-8, 3016-3, 66451-7, 3024-7 ####[facility] LABCLIA [id number] [place] [address] [place] Chloride [Moles/Vol] 95 mmol/L Low 98-107 [facility] Comment on above: Order Comment: Speci men Type: BLOOD SPECIMENOrdering Facility: [facility] Address: [address] [place] [address] Performed By: #### 2 4323-8, 3016-3, 93100-0, 3024-7 ####[facility] LABCLIA [id number] [place] [address] [place] CO2 [Moles/Vol] 25 mmol/L Normal 22-30 [facility] Comment on above: Order Comment: Speci men Type: BLOOD SPECIMENOrdering Facility: [facility] Address: [address] [place] [address] Performed By: #### 2 4323-8, 3016-3, 83955-1, 3024-7 ####[facility] LABCLIA [id number] [facility] [place] [address] [place] Creatinine [Mass/Vol] 1.76 mg/dL High 0.58-0.96 [facility] Comment on above: Order Comment: Lori mosqueda Type: BLOOD SPECIMENOrdering Facility: [facility] Address: [address] [place] [address] Performed By: #### 2 4323-8, 3016-3, 56451-7, 3024-7 ####[facility] LABCLIA [id number] [place] [address] [place] Creatinine and Glomerular filtration rate.predicted panel (S/P/Bld) 28 mL/min/1.73m??? Low >=60 [facility] Comment on above: Order Comment: Lori mosqueda Type: BLOOD SPECIMENOrdering Facility: [facility] Address: [address] [place] [address] Result Comment: Bina mated Glomerular Filtration Rate [...] GFR. Performed By: #### 2 4323-8, 3016-3, 45321-3, 3024-7 ####[facility] LABCLIA [id number] [place] [id number] [place] Glucose [Mass/Vol] 127 mg/dL High 74-99 [facility] Comment on above: Order Comment: Lori mosqueda Type: BLOOD SPECIMENOrdering Facility: [facility] Address: [address] [place] [address] Result Comment: The [place] [employer] Association (ADA) provides guidance for cutoff [...] Standards of Medical Care in Diabetes 2016, [place] [employer]. Diabetes Care. 2016.39(Suppl 1). Performed By: #### 2 4323-8, 3016-3, 76156-0, 302-7 ####[facility] LABCLIA [id number] [place] [address] [place] Potassium [Moles/Vol] 4.6 mmol/L Normal 3.7-5.1 [facility] Comment on above: Order Comment: Speci men Type: BLOOD SPECIMENOrdering Facility: [facility] Address: [address] [place] [address] Performed By: #### 2 4323-8, 3016-3, 29295-2, 7 ####[facility] LABIA [id number] [place] [address] [place] Protein [Mass/Vol] 7.1 g/dL Normal 6.3-8.0 [facility] Comment on above: Order Comment: Lori mosqueda Type: BLOOD SPECIMENOrdering Facility: [facility] Address: [address] [place] [address] Performed By: #### 2 4323-8, 3016-3, 84041-6, 7 ####[facility] LABCLIA [id number] [place] [address] [place] Sodium [Moles/Vol] 135 mmol/L Low 136-144 [facility] Comment on above: Order Comment: Speci men Type: BLOOD SPECIMENOrdering Facility: [facility] Address: [address] [place] [address] Performed By: #### 2 4323-8, 3016-3, 75964-9, 302-7 ####[facility] LABCLIA [id number] [place] [id number] [place] Urea nitrogen [Mass/Vol] 42 mg/dL High 7-21 [facility] Comment on above: Order Comment: Speci men Type: BLOOD SPECIMENOrdering Facility: [facility] Address: [address] [place] [address] Performed By: #### 2 4323-8, 3016-3, 97763-5, 3024-7 ####[facility] LABIA [id number] [place] [address] [place] NT-proBNP SerPl-mCncon 05-11 Natriuretic peptide.B prohormone N-Terminal [Mass/Vol] 117 pg/mL Normal <450 [facility] Comment on above: Order Comment: Speci men Type: BLOOD SPECIMENOrdering Facility: [facility] Address: [address] [place] [address] Performed By: #### 2 4323-8, 3016-3, 85696-4, 302-7 ####[facility] LABIA [id number] [place] [address] [place] T4 Free SerPl-mCncon 025 Free T4 [Mass/Vol] 2.0 ng/dL High 0.9-1.7 [facility] Comment on above: Order Comment: Speci men Type: BLOOD SPECIMENOrdering Facility: [facility] Address: [address] [place] [address] Performed By: #### 2 4323-8, 3016-3, 31867-4, 3024-7 ####[facility] LABIA [id number] [place] [id number] [place] TSH SerPl-aCncon 05-11-2024 TSH Qn 2.320 m[IU]/L Normal 0.270-4.20 0 [facility] Comment on above: Order Comment: Speci men Type: BLOOD SPECIMENOrdering Facility: [facility] Address: [address] [place] [address] Performed By: #### 2 4323-8, 3016-3, 14162-7, 3024-7 ####[facility] JONAS [id number] AD[place]ley [place] [id number] [place] Priscila 05-08-2024 CNPN Telephone (FAMPWS) MICHAEL MEIER ([id number]) 1940 F Date Time Provider Department 05/08/24 [facility] visit today, we recorded the following information about you: Amanda Pratt RN 05/08/2024 9:01 AM Signed Marifer with [facility] calls to let provider know that [...] Will address then. Thank you, Key Portillo APRN.GERICARE AIDE Allergies As of Date: 05/08/2024 Noted Allergy [...] Date Reviewed: 04/10/2024 Reviewed by: Sharon Jarrett APRN.GERICARE AIDE - Fully Assessed Reason for Visit: Patient [...] Hyperlipidemia [E78 (more content not included)... Normal [facility] CNPNon 05-05-2024 CNPN Telephone (FAMPWS) MICHAEL MEIER ([id number]) 1940 F Date Time Provider Department 05/05/24 MICHAEL PUGA [facility]WS During your visit today, we recorded the following information about you: Katia Marcano RN 05/05/2024 4:02 PM Signed Sergio PT with [facility] called in and reports they will [...] Date Reviewed: 04/10/2024 Reviewed by: Sharon Jarrett APRN.GERICARE AIDE - Fully Assessed Reason for Visit: Home [...] [R73.01] 11/10/2016 (more content not included)... Normal [facility] CNPNon 05-04-2024 CNPN Telephone (FAMPWS) MICHAEL MEIER ([id number]) 1940 F Date Time Provider Department 05/04/24 [facility] During your visit today, we recorded the following information about you: Aly Tolentino LPN 05/04/2024 2:34 PM Signed Suha from [facility] calling with plan of care. Only [...] Date Reviewed: 04/10/2024 Reviewed by: Sharon Jarrett APRN.GERICARE AIDE - Fully Assessed Reason for Visit: Home [...] BMI 38.0-38.9,a (more content not included)... Normal [facility] Absolute neutrophil countOrd ered By: Jonny Vicente on 05-02-2024 Neutrophils (Bld) [#/Vol] 4.4 10*3/uL 2.0-7.7 [facility] Basic Metabolic Profile (BMP )on 05-02-2024 BUN/CRE 29.7 RATIO High 10-20 [facility] Comment on above: Performed By: #### L 100.0100, L500.2500 #### [facility] [address] [place], [address] CA,Total 8.7 mg/dL Normal 8.5-10.1 [facility] Comment on above: Performed By: #### L 100.0100, L500.2500 #### [facility] [address] [place], [address] Chloride [Moles/Vol] 100 mmol/L Normal 98-107 [facility] Comment on above: Performed By: #### L 100.0100, L500.2500 #### [facility] [address] [facility] [place], [address] CO2 [Moles/Vol] 33.0 mmol/L High 21.0-32.0 [facility] Comment on above: Performed By: #### L 100.0100, L500.2500 #### [facility] [address] [place], [address] Creatinine [Mass/Vol] 0.74 mg/dL Normal 0.55-1.02 [facility] Comment on above: Result Comment: The validity of the calculated GFR GFRAA in patients over 70 years has not been determined. Clinical correlation is essential. Performed By: #### L 100.0100, L500.2500 #### [facility] [address] [place], [address] ECRCL 63.05 ml/min Normal [facility] Comment on above: Performed By: #### L 100.0100, L500.2500 #### [facility] [address] [place], [address] EST GFR - AA 96 mL/min Normal >60 [facility] Comment on above: Result Comment: Afri can Congolese GFR Calc Performed By: #### L 100.0100, L500.2500 #### [facility] [address] [place], [address] GAP 7 Normal 5-15 [facility] Comment on above: Performed By: #### L 100.0100, L500.2500 #### [facility] [address] [place], [address] GFR/1.73 sq M.predicted among non-blacks MDRD (S/P/Bld) [Vol rate/Area] 80 mL/min/{1.73_m2} Normal >60 [facility] Comment on above: Result Comment: Non- GFR Calc Performed By: #### L 100.0100, L500.2500 #### [facility] [address] [place], [address] Glucose [Mass/Vol] 109 mg/dL High 74-106 [facility] Comment on above: Result Comment: Fast ing Glucose result from 100 to 125 mg/dL suggests IMPAIRED HOMEOSTASIS per A.D.A. criteria. Performed By: #### L 100.0100, L500.2500 #### [facility] [address] [place], [address] Potassium [Moles/Vol] 3.3 mmol/L Low 3.5-5.1 [facility] Comment on above: Performed By: #### L 100.0100, L500.2500 #### [facility] [address] [place], [address] Sodium [Moles/Vol] 139 mmol/L Normal 136-145 [facility] Comment on above: Performed By: #### L 100.0100, L500.2500 #### [facility] [address] [place], [address] Urea nitrogen [Mass/Vol] 22 mg/dL High 7-18 [facility] Comment on above: Performed By: #### L 100.0100, L500.2500 #### [facility] [address] [place], [address] Basophil percentageOrdered B y: Jonny Vicente on 05-02-2024 Basophils/100 WBC (Bld) 0.7 % 0-1 [facility] Blood urea nitrogen (BUN)/cr eatinine ratioOrdered By: Jonny Vicente on 05-02-2024 Urea nitrogen/Creatinine [Mass ratio] 29.7 mg/mg High 10-20 [facility] CBC W/Diff, Automatedon 12-3 Absolute Lymph 1.38 X10 3/uL Normal 0.83-4.51 [facility] Comment on above: Performed By: #### L 100.0100, L500.2500 #### [facility] [address] [place], [address] Absolute Neut 4.4 X10 3/uL Normal 2.0-7.7 [facility] Comment on above: Performed By: #### L 100.0100, L500.2500 #### [facility] [address] [place], [address] Basophils/100 WBC (Bld) 0.7 % Normal 0-1 [facility] Comment on above: Performed By: #### L 100.0100, L500.2500 #### [facility] [address] [place], [address] Eosinophils/100 WBC (Bld) 3.6 % Normal 0-5 [facility] Comment on above: Performed By: #### L 100.0100, L500.2500 #### [facility] [address] [place], [address] Erythrocyte distribution width (RBC) [Ratio] 16.2 % High 11.6-14.6 [facility] Comment on above: Performed By: #### L 100.0100, L500.2500 #### [facility] [address] [place], [address] Hematocrit (Bld) [Volume fraction] 34.8 % Low 37-47 [facility] Comment on above: Performed By: #### L 100.0100, L500.2500 #### [facility] [address] [place], [address] Hemoglobin (Bld) [Mass/Vol] 11.2 g/dL Low 12.0-15.0 [facility] Comment on above: Performed By: #### L 100.0100, L500.2500 #### [facility] [address] [place], [address] IG% 0.300 Normal 0.0-0.9 [facility] Comment on above: Result Comment: IG% - Immature Granulocytes (promyelocytes, myelocytes and metamyelocytes) > 1% indicates that a LEFT SHIFT is Present. Performed By: #### L 100.0100, L500.2500 #### [facility] [address] [place], [address] Lymphocytes/100 WBC (Bld) 19.8 % Normal 19-41 [facility] Comment on above: Performed By: #### L 100.0100, L500.2500 #### [facility] [address] [place], [address] MCH (RBC) [Entitic mass] 27.7 pg Normal 27.0-32.0 [facility] Comment on above: Performed By: #### L 100.0100, L500.2500 #### [facility] [address] [place], [address] MCHC (RBC) [Mass/Vol] 32.2 g/dL Normal 32-36 [facility] Comment on above: Performed By: #### L 100.0100, L500.2500 #### [facility] [address] [place], [address] MCV (RBC) [Entitic vol] 85.9 fL Normal 81-99 [facility] Comment on above: Performed By: #### L 100.0100, L500.2500 #### [facility] [address] [place], [address] Monocytes/100 WBC (Bld) 11.9 % High 0-10 [facility] Comment on above: Performed By: #### L 100.0100, L500.2500 #### [facility] [address] [place], [address] Neutrophils/100 WBC (Bld) 63.7 % Normal 47-70 [facility] Comment on above: Performed By: #### L 100.0100, L500.2500 #### [facility] [address] [place], [address] Nucleated RBC (Bld) [#/Vol] 0 10*3/uL Normal 0-5 [facility] Comment on above: Performed By: #### L 100.0100, L500.2500 #### [facility] [address] [place], [address] Platelet mean volume (Bld) [Entitic vol] 10.8 fL Normal 6.2-12.0 [facility] Comment on above: Performed By: #### L 100.0100, L500.2500 #### [facility] [address] [place], [address] Platelets (Bld) [#/Vol] 241 10*3/uL Normal 150-450 [facility] Comment on above: Performed By: #### L 100.0100, L500.2500 #### [facility] [address] [place], [address] RBC (Bld) [#/Vol] 4.05 10*6/uL Low 4.2-5.4 [facility] Comment on above: Performed By: #### L 100.0100, L500.2500 #### [facility] [address] [place], [address] RDW SD 51.3 fl High 35.1-43.9 [facility] Comment on above: Performed By: #### L 100.0100, L500.2500 #### [facility] [address] [place], [address] WBC (Bld) [#/Vol] 7.0 10*3/uL Normal 4.4-11.0 [facility] Comment on above: Performed By: #### L 100.0100, L500.2500 #### [facility] [address] [place], [address] Carbon dioxide measurementOr dered By: Jonny Vicente on 05-02-2024 CO2 [Moles/Vol] 33.0 mmol/L High 21.0-32.0 [facility] Chloride measurementOrdered By: Jonny Vicente on 05-02-2024 Chloride [Moles/Vol] 100 mmol/L 98-107 [facility] Discharge Instructionon 12-3 Discharge Instruction [facility] Medical Records Department [address] [place] [address] Instructions for Home/Discharge Instructions 05/02/24 1102 MR#: [id number] Acct: [id number] Name: MICHAEL MEIER Rep #: [id number] : 1940 84 From: Jonny Vicente MD [...] Admission Admit Date/Time: 04/30/24 09:27 Attending Provider: Jonny Vicente Primary Care Provider: Michael Puga [employer] [...] Michael Puga DO Signed Normal [facility] Eosinophil percentageOrdered By: Jonny Vicente on 05-02-2024 Eosinophils/100 WBC (Bld) 3.6 % 0-5 [facility] Erythrocyte distribution wid th ratioOrdered By: Jonny Vicente on 05-02-2024 Erythrocyte distribution width (RBC) [Ratio] 16.2 % High 11.6-14.6 [facility] Erythrocyte distribution wid th standard deviationOrdered By: Jonny Vicente on 05-02-2024 Erythrocyte distribution width (RBC) [Entitic vol] 51.3 fL High 35.1-43.9 [facility] Estimated glomerular filtrat ion rate (GFR) AmericanOrdered By: Jonny Vicente on 05-02-2024 Estimated GFR (MDRD) Amer 96 mL/min >60 [facility] Comment on above: GFR Calc Estimation of creatinine demetrius aranceOrdered By: Jonny Vicente on 05-02-2024 Estimated Creatinine Clearance Calc 63.05 ml/min [facility] Glomerular filtration rate ( GFR) estimationOrdered By: Jonny Vicente on 05-02-2024 Estimated GFR (MDRD) Non-Af Amer 80 mL/min >60 [facility] Comment on above: Non- GFR Calc Glucose measurementOrdered B y: Jonny Vicente on 05-02-2024 Glucose [Mass/Vol] 109 mg/dL High 74-106 [facility] Comment on above: Fasting Glucose resu lt from 100 to 125 mg/dL suggests IMPAIRED HOMEOSTASIS per A.D.A. criteria. Hematocrit Auto (Bld) [Volum e fraction]Ordered By: Jonny Vicente on 05-02-2024 Hematocrit (Bld) [Volume fraction] 34.8 % Low 37-47 [facility] Hemoglobin measurementOrdere d By: Jonny Vicente on 05-02-2024 Hemoglobin (Bld) [Mass/Vol] 11.2 g/dL Low 12.0-15.0 [facility] Immature granulocytes/100 WB C Auto (Bld)Ordered By: Jonny Vicente on 05-02-2024 Immature granulocytes/100 WBC (Bld) 0.300 % 0.0-0.9 [facility] Comment on above: IG% - Immature Granu locytes (promyelocytes, myelocytes and metamyelocytes) > 1% indicates that a LEFT SHIFT is Present. Lymphocytes Auto (Unsp spec) [#/Vol]Ordered By: Jonny Vicente on 05-02-2024 Lymphocytes (Bld) [#/Vol] 1.38 10*3/uL 0.83-4.51 [facility] Lymphocytes/100 WBC Auto (Un sp spec)Ordered By: Jonny Vicente on 05-02-2024 Lymphocytes/100 WBC (Bld) 19.8 % 19-41 [facility] MCV (mean corpuscular volume ) determinationOrdered By: Jonny Vicente on 05-02-2024 MCV (RBC) [Entitic vol] 85.9 fL 81-99 [facility] Mean corpuscular hemoglobin (MCH) determinationOrdered By: Jonny Vicente on 05-02-2024 MCH (RBC) [Entitic mass] 27.7 pg 27.0-32.0 [facility] Mean corpuscular hemoglobin concentration (MCHC) determinationOrdered By: Jonny Vicente on 05-02-2024 MCHC (RBC) [Mass/Vol] 32.2 g/dL 32-36 [facility] Mean platelet volume determi nationOrdered By: Jonny Vicente on 05-02-2024 Platelet mean volume (Bld) [Entitic vol] 10.8 fL 6.2-12.0 [facility] Monocyte percentageOrdered B y: Jonny Vicenet on 05-02-2024 Monocytes/100 WBC (Bld) 11.9 % High 0-10 [facility] Neutrophil percentageOrdered By: Jonny Vicente on 05-02-2024 Neutrophils/100 WBC (Bld) 63.7 % 47-70 [facility] Nucleated red blood cell per centageOrdered By: Jonny Vicente on 05-02-2024 Nucleated RBC/100 WBC (Bld) [Ratio] 0 % 0-5 [facility] Platelet countOrdered By: Alyson Vicente on 12-31-2024 Platelets (Bld) [#/Vol] 241 10*3/uL 150-450 [facility] Potassium measurementOrdered By: Jonny Vicente on 05-02-2024 Potassium [Moles/Vol] 3.3 mmol/L Low 3.5-5.1 [facility] RBC Auto (Bld) [#/Vol]Ordere d By: Jonny Vicente on 05-02-2024 RBC (Bld) [#/Vol] 4.05 10*6/uL Low 4.2-5.4 [facility] Serum anion gap measurementO rdered By: Jonny Vicente on 05-02-2024 Anion gap [Moles/Vol] 7 mmol/L 5-15 [facility] Serum or plasma calcium julee urement (mass/volume)Ordered By: Jonny Vicente on 05-02-2024 Calcium [Mass/Vol] 8.7 mg/dL 8.5-10.1 [facility] Serum or plasma creatinine m easurement (mass/volume)Ordered By: Jonny Vicente on 05-02-2024 Creatinine [Mass/Vol] 0.74 mg/dL 0.55-1.02 [facility] Comment on above: The validity of the calculated GFR & GFRAA in patients over 70 years has not been determined. Clinical correlation is essential. Serum or plasma urea nitroge n measurement (mass/volume)Ordered By: Jonny Vicente on 05-02-2024 Urea nitrogen [Mass/Vol] 22 mg/dL High 7-18 [facility] Sodium levelOrdered By: Timmy Vicente on 05-02-2024 Sodium [Moles/Vol] 139 mmol/L 136-145 [facility] Urine Cultureon 05-02-2024 [facility] Comments: Use ED UA Mixed Gram Positive Organisms [place] Count 25,000-50,000 MIXC Mixed contaminants. Submit a new specimen if indicated. Normal [facility] Comment on above: Performed By: #### L 500.2500 #### [facility] [place], [address] White blood cell (WBC) count Ordered By: Jonny Vicente on 05-02-2024 WBC (Bld) [#/Vol] 7.0 10*3/uL 4.4-11.0 [facility] Albumin to globulin ratioOrd ered By: Susan Duran on 05-01-2024 Albumin/Globulin [Mass ratio] 0.8 {ratio} Low 0.9-2.4 [facility] Comment on above: Performed By: #### L 500.4050, L100.0100, L500.4100 #### [facility] [address] [place], [address] Bilirubin, totalOrdered By: Susan Duran on 05-01-2024 Bilirubin [Mass/Vol] 1.60 mg/dL High 0.20-1.00 [facility] Comment on above: For patients on eltr ombopag therapy, use of Dimension [place] TBIL is not recommended. Result Comment: For patients on eltrombopag therapy, use of Dimension [place] TBIL is not recommended. Performed By: #### L 500.4050, L100.0100, L500.4100 #### [facility] [address] [place], [address] CBC W/Diff, Automatedon - Absolute Lymph 1.39 X10 3/uL Normal 0.83-4.51 [facility] Comment on above: Performed By: #### L 500.4050, L100.0100, L500.4100 #### [facility] [address] [place], [address] Absolute Neut 4.5 X10 3/uL Normal 2.0-7.7 [facility] Comment on above: Performed By: #### L 500.4050, L100.0100, L500.4100 #### [facility] [address] [place], [address] Basophils/100 WBC (Bld) 0.8 % Normal 0-1 [facility] Comment on above: Performed By: #### L 500.4050, L100.0100, L500.4100 #### [facility] [address] [place], [address] Eosinophils/100 WBC (Bld) 2.5 % Normal 0-5 [facility] Comment on above: Performed By: #### L 500.4050, L100.0100, L500.4100 #### [facility] [address] [place], [address] Erythrocyte distribution width (RBC) [Ratio] 16.5 % High 11.6-14.6 [facility] Comment on above: Performed By: #### L 500.4050, L100.0100, L500.4100 #### [facility] [address] [place], [address] Hematocrit (Bld) [Volume fraction] 34.0 % Low 37-47 [facility] Comment on above: Performed By: #### L 500.4050, L100.0100, L500.4100 #### [facility] [address] [place], [address] Hemoglobin (Bld) [Mass/Vol] 11.0 g/dL Low 12.0-15.0 [facility] Comment on above: Performed By: #### L 500.4050, L100.0100, L500.4100 #### [facility] [address] [place], [address] IG% 0.100 Normal 0.0-0.9 [facility] Comment on above: Result Comment: IG% - Immature Granulocytes (promyelocytes, myelocytes and metamyelocytes) > 1% indicates that a LEFT SHIFT is Present. Performed By: #### L 500.4050, L100.0100, L500.4100 #### [facility] [address] [place], [address] Lymphocytes/100 WBC (Bld) 19.6 % Normal 19-41 [facility] Comment on above: Performed By: #### L 500.4050, L100.0100, L500.4100 #### [facility] [address] [place], [address] MCH (RBC) [Entitic mass] 27.5 pg Normal 27.0-32.0 [facility] Comment on above: Performed By: #### L 500.4050, L100.0100, L500.4100 #### [facility] [address] [place], [address] MCHC (RBC) [Mass/Vol] 32.4 g/dL Normal 32-36 [facility] Comment on above: Performed By: #### L 500.4050, L100.0100, L500.4100 #### [facility] [address] [place], [address] MCV (RBC) [Entitic vol] 85.0 fL Normal 81-99 [facility] Comment on above: Performed By: #### L 500.4050, L100.0100, L500.4100 #### [facility] [address] [place], [address] Monocytes/100 WBC (Bld) 13.4 % High 0-10 [facility] Comment on above: Performed By: #### L 500.4050, L100.0100, L500.4100 #### [facility] [address] [place], [address] Neutrophils/100 WBC (Bld) 63.6 % Normal 47-70 [facility] Comment on above: Performed By: #### L 500.4050, L100.0100, L500.4100 #### [facility] [address] [place], [address] Nucleated RBC (Bld) [#/Vol] 0 10*3/uL Normal 0-5 [facility] Comment on above: Performed By: #### L 500.4050, L100.0100, L500.4100 #### [facility] [address] [place], [address] Platelet mean volume (Bld) [Entitic vol] 11.2 fL Normal 6.2-12.0 [facility] Comment on above: Performed By: #### L 500.4050, L100.0100, L500.4100 #### [facility] [address] [place], [address] Platelets (Bld) [#/Vol] 193 10*3/uL Normal 150-450 [facility] Comment on above: Performed By: #### L 500.4050, L100.0100, L500.4100 #### [facility] [address] [place], [address] RBC (Bld) [#/Vol] 4.00 10*6/uL Low 4.2-5.4 [facility] Comment on above: Performed By: #### L 500.4050, L100.0100, L500.4100 #### [facility] [address] [place], [address] RDW SD 51.2 fl High 35.1-43.9 [facility] Comment on above: Performed By: #### L 500.4050, L100.0100, L500.4100 #### [facility] [address] [place], [address] WBC (Bld) [#/Vol] 7.1 10*3/uL Normal 4.4-11.0 [facility] Comment on above: Performed By: #### L 500.4050, L100.0100, L500.4100 #### [facility] [address] [place], [address] Priscila 05-01-2024 CARMELINAN Telephone ([facility]) MICHAEL MEIER ([id number]) 1940 F Date Time Provider Department 05/01/24 MICHAEL PUGA During your visit today, we recorded the following information about you: Constance Ervin LPN 05/01/2024 2:21 PM Signed Larissa with [facility] calls to report pt is currently in the hospital with heart failure exacerbation. Pt will most likely be discharged 05/03/24. Pt has HH orders for PT, OT, and Detention. Larissa is requesting VO that pcp will follow pt while in HH. Call Larissa with VO from pcp. CAROLINE Lennon Bernadette, PA-C 05/01/2024 4:03 PM Signed Verbal order okay for PCP to follow for HH. SERGE Griffin Susan LPN 05/01/2024 4:41 PM Signed [facility] message left on [facility]. Allergies [...] Date Reviewed: 04/10/2024 Reviewed by: Sharon Jarrett APRN.[facility] AIDE - Fully Assessed Reason for Visit: verbal [...] atrial fibrilla (more content not included)... Normal [facility] Prof shahida 05-01-2024 ALK P 80 U/L Normal 45-117 [facility] Comment on above: Performed By: #### L 500.4050, L100.0100, L500.4100 #### [facility] [address] [place], [address] BUN/CRE 20.0 RATIO Normal 10-20 [facility] Comment on above: Performed By: #### L 500.4050, L100.0100, L500.4100 #### [facility] [address] [place], [address] CA,Total 8.8 mg/dL Normal 8.5-10.1 [facility] Comment on above: Performed By: #### L 500.4050, L100.0100, L500.4100 #### [facility] [address] [place], [address] Chloride [Moles/Vol] 100 mmol/L Normal 98-107 [facility] Comment on above: Performed By: #### L 500.4050, L100.0100, L500.4100 #### [facility] [address] [place], [address] CO2 [Moles/Vol] 35.0 mmol/L High 21.0-32.0 [facility] Comment on above: Performed By: #### L 500.4050, L100.0100, L500.4100 #### [facility] [address] [place], [address] Creatinine [Mass/Vol] 0.85 mg/dL Normal 0.55-1.02 [facility] Comment on above: Result Comment: The validity of the calculated GFR GFRAA in patients over 70 years has not been determined. Clinical correlation is essential. Performed By: #### L 500.4050, L100.0100, L500.4100 #### [facility] [address] [place], [address] ECRCL 59.98 ml/min Normal [facility] Comment on above: Performed By: #### L 500.4050, L100.0100, L500.4100 #### [facility] [address] [place], [address] EST GFR - AA 82 mL/min Normal >60 [facility] Comment on above: Result Comment: Afri can Congolese GFR Calc Performed By: #### L 500.4050, L100.0100, L500.4100 #### [facility] [address] [place], [address] GAP 3 Low 5-15 [facility] Comment on above: Performed By: #### L 500.4050, L100.0100, L500.4100 #### [facility] [address] [place], [address] GFR/1.73 sq M.predicted among non-blacks MDRD (S/P/Bld) [Vol rate/Area] 68 mL/min/{1.73_m2} Normal >60 [facility] Comment on above: Result Comment: Non- GFR Calc Performed By: #### L 500.4050, L100.0100, L500.4100 #### [facility] [address] [place], [address] Glucose [Mass/Vol] 117 mg/dL High 74-106 [facility] Comment on above: Result Comment: Fast ing Glucose result from 100 to 125 mg/dL suggests IMPAIRED HOMEOSTASIS per A.D.A. criteria. Performed By: #### L 500.4050, L100.0100, L500.4100 #### [facility] [address] [place], [address] Potassium [Moles/Vol] 3.0 mmol/L Low 3.5-5.1 [facility] Comment on above: Performed By: #### L 500.4050, L100.0100, L500.4100 #### [facility] [address] [place], [address] Sodium [Moles/Vol] 138 mmol/L Normal 136-145 [facility] Comment on above: Performed By: #### L 500.4050, L100.0100, L500.4100 #### [facility] [address] [place], [address] T PROT 6.3 g/dL Low 6.4-8.2 [facility] Comment on above: Performed By: #### L 500.4050, L100.0100, L500.4100 #### [facility] [address] [place], [address] Urea nitrogen [Mass/Vol] 17 mg/dL Normal 7-18 [facility] Comment on above: Performed By: #### L 500.4050, L100.0100, L500.4100 #### [facility] [address] [place], [address] Comprehensive Metabolic Prof ilOrdered By: Susan Duran on 05-01-2024 AST [Catalytic activity/Vol] 18 U/L Normal 15-37 [facility] Comment on above: Performed By: #### L 500.4050, L100.0100, L500.4100 #### [facility] [address] [place], [address] High density lipoprotein (HD L) measurementOrdered By: Susan Duran on 05-01-2024 Cholesterol in HDL [Mass/Vol] 54 mg/dL Normal [facility] Comment on above: The drugs N-Acetylcy [...] L 500.4050, L100.0100, L500.4100 #### [facility] [address] [place], [address] Lipid Profileon 05-01-2024 Cholesterol in VLDL [Mass/Vol] 20 mg/dL Normal 5-40 [facility] Comment on above: Performed By: #### L 500.4050, L100.0100, L500.4100 #### [facility] [address] [place], [address] Low density lipoprotein (LDL ) cholesterol measurementOrdered By: Susan Roger on 05-01-2024 Cholesterol in LDL [Mass/Vol] 66 mg/dL Normal 0-130 [facility] Comment on above: Performed By: #### L 500.4050, L100.0100, L500.4100 #### [facility] [address] [place], [address] Serum globulin measurementOr dered By: Susan Roger on 05-01-2024 Globulin (S) [Mass/Vol] 3.5 g/dL Normal 2.2-4.2 [facility] Comment on above: Performed By: #### L 500.4050, L100.0100, L500.4100 #### [facility] [address] [place], [address] Serum or plasma alanine sprague otransferase (ALT) measurementOrdered By: Susan Duran on 05-01-2024 ALT [Catalytic activity/Vol] 24 U/L Normal 13-56 [facility] Comment on above: Performed By: #### L 500.4050, L100.0100, L500.4100 #### [facility] [address] [place], [address] Serum or plasma albumin julee urement (mass/volume)Ordered By: Susan Duran on 05-01-2024 Albumin [Mass/Vol] 2.8 g/dL Low 3.2-5.0 [facility] Comment on above: Performed By: #### L 500.4050, L100.0100, L500.4100 #### [facility] [address] [place], [place], [address] Serum or plasma alkaline rachel sphatase measurementOrdered By: Susan Duran on 05-01-2024 ALP [Catalytic activity/Vol] 80 U/L 45-117 [facility] Serum or plasma cholesterol measurement (mass/volume)Ordered By: Susan Duran on 05-01-2024 Cholesterol [Mass/Vol] 140 mg/dL Normal 200 [facility] Comment on above: <200 mg/dL Desirable 200-240 mg/dL Borderline >240 mg/dL High Risk Result Comment: <200 mg/dL Desirable 200-240 mg/dL Borderline >240 mg/dL High Risk Performed By: #### L 500.4050, L100.0100, L500.4100 #### [facility] [address] [place], [place], [id number] Total proteinOrdered By: Ashu Duran on 05-01-2024 Protein [Mass/Vol] 6.3 g/dL Low 6.4-8.2 [facility] Triglycerides measurementOrd ered By: Susan Duran on 05-01-2024 Triglyceride [Mass/Vol] 102 mg/dL Normal [facility] Comment on above: The drugs N-Acetylcy [...] L 500.4050, L100.0100, L500.4100 #### [facility] [address] [place], [address] Very low density lipoprotein (VLDL) cholesterol measurementOrdered By: Susan Duran on 05-01-2024 VLDL Cholesterol 20 mg/dL 5-40 [facility] 12 Lead EKGon 04-30-2024 12 Lead EKG [facility] [address] [place] [address] 12 Lead EKG 04/30/24 1519 MR#: [id number] Acct: [id number] Name: MICHAEL MEIER Rep #: [id number] : 1940 84 From: Gallo Hickey MD [...] Abnormal ECG Confirmed by EDELMIRA SZYMANSKI, GALLO ([id number]), school photograph editor KATIA MEDEIROS ([id number]) on 05/01/2024 11:10:29 AM Referred By: Confirmed By: GALLO HICKEY MD 05/01/24 1110 Date Gallo Hickey MD CC: Dr. Susan Duran MD; Dr. Michael Puga DO; Dr. Jonny Vicente MD Signed Normal [facility] Amorphous sediment detection in urine sediment by light microscopyOrdered By: Aravind Recio on 04-30-2024 Amorphous sediment LM Ql (Urine sed) 1+ [facility] BNP (brain natriuretic pepti de measurement)Ordered By: Aravind Recio on 04-30-2024 Natriuretic peptide B (Bld) [Mass/Vol] 266.9 pg/mL High 0-100 [facility] BNP,B-Type NATRIURETIC PEPTI Kenyatta 04-30-2024 Natriuretic peptide B (Bld) [Mass/Vol] 266.9 pg/mL High 0-100 [facility] Comment on above: Performed By: #### L 100.0100, L500.2500 #### [facility] [address] [place], [address] Basic Metabolic Profile (BMP )on 04-30-2024 BUN/CRE 19.1 RATIO Normal 10-20 [facility] Comment on above: Performed By: #### L 100.0100, L500.2500 #### [facility] [address] [place], [address] CA,Total 9.0 mg/dL Normal 8.5-10.1 [facility] Comment on above: Performed By: #### L 100.0100, L500.2500 #### [facility] [address] [place], [address] Chloride [Moles/Vol] 99 mmol/L Normal 98-107 [facility] Comment on above: Performed By: #### L 100.0100, L500.2500 #### [facility] [address] [place], [address] CO2 [Moles/Vol] 33.0 mmol/L High 21.0-32.0 [facility] Comment on above: Performed By: #### L 100.0100, L500.2500 #### [facility] [address] [place], [address] Creatinine [Mass/Vol] 0.68 mg/dL Normal 0.55-1.02 [facility] Comment on above: Result Comment: The validity of the calculated GFR GFRAA in patients over 70 years has not been determined. Clinical correlation is essential. Performed By: #### L 100.0100, L500.2500 #### [facility] [address] [place], [address] ECRCL 65.47 ml/min Normal [facility] Comment on above: Performed By: #### L 100.0100, L500.2500 #### [facility] [address] [place], [address] EST GFR - AA 106 mL/min Normal >60 [facility] Comment on above: Result Comment: Afri can Congolese GFR Calc Performed By: #### L 100.0100, L500.2500 #### [facility] [address] [place], [address] GAP 7 Normal 5-15 [facility] Comment on above: Performed By: #### L 100.0100, L500.2500 #### [facility] [address] [place], [address] GFR/1.73 sq M.predicted among non-blacks MDRD (S/P/Bld) [Vol rate/Area] 88 mL/min/{1.73_m2} Normal >60 [facility] Comment on above: Result Comment: Non- GFR Calc Performed By: #### L 100.0100, L500.2500 #### [facility] [address] [place], [address] Glucose [Mass/Vol] 127 mg/dL High 74-106 [facility] Comment on above: Result Comment: Fast ing Glucose result greater than or equal to 126 mg/dL suggests DIABETES MELLITUS per A.D.A. criteria. Performed By: #### L 100.0100, L500.2500 #### [facility] [address] [place], [address] Potassium [Moles/Vol] 2.8 mmol/L Low 3.5-5.1 [facility] Comment on above: Performed By: #### L 100.0100, L500.2500 #### [facility] [address] [place], [address] Sodium [Moles/Vol] 139 mmol/L Normal 136-145 [facility] Comment on above: Performed By: #### L 100.0100, L500.2500 #### [facility] [address] [place], [address] Urea nitrogen [Mass/Vol] 13 mg/dL Normal 7-18 [facility] Comment on above: Performed By: #### L 100.0100, L500.2500 #### [facility] [address] [place], [address] Bilirubin Test strip Ql (U)O rdered By: Aravind Recio on 04-30-2024 Bilirubin Ql (U) Negative Negative [facility] Bilirubin directOrdered By: Aravind Recio on 04-30-2024 Bilirubin.direct [Mass/Vol] 0.52 mg/dL High 0.00-0.30 [facility] CBC W/Diff, Automatedon - Absolute Lymph 1.24 X10 3/uL Normal 0.83-4.51 [facility] Comment on above: Performed By: #### L 100.0100, L500.2500 #### [facility] [address] [place], [address] Absolute Neut 10.4 X10 3/uL High 2.0-7.7 [facility] Comment on above: Performed By: #### L 100.0100, L500.2500 #### [facility] [address] [place], [address] Basophils/100 WBC (Bld) 0.4 % Normal 0-1 [facility] Comment on above: Performed By: #### L 100.0100, L500.2500 #### [facility] [address] [place], [address] Eosinophils/100 WBC (Bld) 1.3 % Normal 0-5 [facility] Comment on above: Performed By: #### L 100.0100, L500.2500 #### [facility] [address] [place], [address] Erythrocyte distribution width (RBC) [Ratio] 16.7 % High 11.6-14.6 [facility] Comment on above: Performed By: #### L 100.0100, L500.2500 #### [facility] [address] [place], [address] Hematocrit (Bld) [Volume fraction] 36.9 % Low 37-47 [facility] Comment on above: Performed By: #### L 100.0100, L500.2500 #### [facility] [address] [place], [address] Hemoglobin (Bld) [Mass/Vol] 11.9 g/dL Low 12.0-15.0 [facility] Comment on above: Performed By: #### L 100.0100, L500.2500 #### [facility] [address] [place], [address] IG% 0.400 Normal 0.0-0.9 [facility] Comment on above: Result Comment: IG% - Immature Granulocytes (promyelocytes, myelocytes and metamyelocytes) > 1% indicates that a LEFT SHIFT is Present. Performed By: #### L 100.0100, L500.2500 #### [facility] [address] [place], [address] Lymphocytes/100 WBC (Bld) 9.3 % Low 19-41 [facility] Comment on above: Performed By: #### L 100.0100, L500.2500 #### [facility] [address] [place], [address] MCH (RBC) [Entitic mass] 27.7 pg Normal 27.0-32.0 [facility] Comment on above: Performed By: #### L 100.0100, L500.2500 #### [facility] [address] [place], [address] MCHC (RBC) [Mass/Vol] 32.2 g/dL Normal 32-36 [facility] Comment on above: Performed By: #### L 100.0100, L500.2500 #### [facility] [address] [place], [address] MCV (RBC) [Entitic vol] 85.8 fL Normal 81-99 [facility] Comment on above: Performed By: #### L 100.0100, L500.2500 #### [facility] [address] [place], [address] Monocytes/100 WBC (Bld) 11.0 % High 0-10 [facility] Comment on above: Performed By: #### L 100.0100, L500.2500 #### [facility] [address] [place], [address] Neutrophils/100 WBC (Bld) 77.6 % High 47-70 [facility] Comment on above: Performed By: #### L 100.0100, L500.2500 #### [facility] [address] [place], [address] Nucleated RBC (Bld) [#/Vol] 0 10*3/uL Normal 0-5 [facility] Comment on above: Performed By: #### L 100.0100, L500.2500 #### [facility] [address] [place], [address] Platelet mean volume (Bld) [Entitic vol] 10.8 fL Normal 6.2-12.0 [facility] Comment on above: Performed By: #### L 100.0100, L500.2500 #### [facility] [address] [place], [address] Platelets (Bld) [#/Vol] 236 10*3/uL Normal 150-450 [facility] Comment on above: Performed By: #### L 100.0100, L500.2500 #### [facility] [address] [place], [address] RBC (Bld) [#/Vol] 4.30 10*6/uL Normal 4.2-5.4 [facility] Comment on above: Performed By: #### L 100.0100, L500.2500 #### [facility] [address] [place], [address] RDW SD 52.8 fl High 35.1-43.9 [facility] Comment on above: Performed By: #### L 100.0100, L500.2500 #### [facility] [address] [place], [address] WBC (Bld) [#/Vol] 13.4 10*3/uL High 4.4-11.0 [facility] Comment on above: Performed By: #### L 100.0100, L500.2500 #### [facility] [address] [place], [address] CTA Chest W/WO Contraston CTA Chest W/WO Contrast [facility] Imaging Services [address] [place] [address] CTA Chest W/WO Contrast MR#: [id number] Acct: [id number] Name: MICHAEL MEIER Rep #: [id number] : 1940 F 84 From: Wil jerome DO PCP: Dr. Michael Puga, DO Status: [facility] ER Study: CTA Chest W/WO Contrast Date of Exam: 04/30/24 Exam# [id number] Ordering Dr: Aravind Recio DO :[id number] EXAM: CT ANGIOGRAPHY CHEST WITHOUT AND WITH [...] Dr. Michael Puga DO; Aravind Recio DO It Systems Engineer: Signed Normal [facility] Chest PA and Lateralon 04-30 Chest PA and Lateral [facility] Imaging Services [address] [place] [address] Chest PA and Lateral MR#: [id number] Acct: [id number] Name: MICHAEL MEIER Rep #: [id number] : 1940 F 84 From: Kelsea Souza PCP: Dr. Michael Puga DO Status: REG ER Study: Chest PA and Lateral Date of Exam: 04/30/24 Exam# [id number] Ordering Dr: Aravind Recio DO :[id number] INDICATION: cough EXAMINATION/TECHNIQUE: X-RAY - XR Chest [...] MD at 8:12 EST , CC: Dr. Michael Puga DO; Aravind Recio DO It Systems Engineer: Signed Normal [facility] D-Dimer Quantitative (DVT/PE )on 04-30-2024 D-DIMER QUANT 0.83 FEU/ug/m Invalid Interpretation Code 0.27-0.49 [facility] Comment on above: Result Comment: D-Di rand ELEVATED (>0.49): Additional studies and clinical assessments are indicated to conclude diagnosis of: Deep Vein Thrombosis (DVT) or Pulmonary Embolism (PE) CRITICAL VALUE CALLED TO SUKI GALVAN 04/30/24 0731 Yessenia Kern. RESULTS READ BACK BY SAME. Performed By: #### L 100.0100, L500.2500 #### [facility] [address] [place], [address] D-dimer measurement for deep venous thrombosisOrdered By: Aravind Recio on 04-30-2024 D-Dimer Quantitative (PE/DVT) 0.83 FEU/ug/m High 0.27-0.49 [facility] Comment on above: D-Dimer ELEVATED (>0 .49): Additional studies and clinicalassessments are indicated to conclude diagnosis of:Deep Vein Thrombosis (DVT) or Pulmonary Embolism (PE)CRITICAL VALUE CALLED TO SUKI GALVAN04/30/24 0731 Yessenia Kern.RESULTS READ BACK BY SAME. Direct serum free thyroxine (FT4) measurementOrdered By: Susan Duran on 04-30-2024 Free T4 [Mass/Vol] 1.90 ng/dL High 0.76-1.46 [facility] Emergency Department Summary on 04-30-2024 Emergency Department Summary [facility] Medical Records Department [address] [place] [address] Emergency Department Summary 04/30/24 MR#: [id number] Acct: [id number] Name: MICHAEL MEIER Rep #: [id number] : 1940 84 From: Aravind Recio DO [...] and EMS brought her in for evaluation [facility] Medical History Obesity TIA (transient ischemic attack) [...] (more content not included)... Normal [facility] Epithelial cells.renal LM.HP F (Urine sed) [#/Area]Ordered By: Aravind Recio on 04-30-2024 Urine Renal Epithelial Cells 0-5 SEEN /hpf 0-5 [facility] Epithelial cells.squamous LM Ql (Urine sed)Ordered By: Aravind Recio on 04-30-2024 Epithelial cells.squamous LM.HPF (Urine sed) [#/Area] 5 /[HPF] 5-10 [facility] Glucose Ql (U)Ordered By: Yanira Recio on 04-30-2024 Urine Glucose (UA) Normal mg/dl Normal [facility] H AND P Exam - Hospitaliston 04-30-2024 H&P Exam - Hospitalist [facility] Medical Records Department [address] [place] [address] H P Exam - Hospitalist 04/30/24923 MR#: [id number] Acct: [id number] Name: MICHAEL MEIER Rep #: [id number] : 1940 84 From: Susan Duran MD [...] on GFR trending who presents to the [facility] ED on 04/30/24 with history of increasing [...] (more content not included)... Normal [facility] Influenza virus A and B and SARS-CoV-2 (COVID-19) and Respiratory syncytial virus RNAOrdered By: Aravind Recio on 04-30-2024 SARS-CoV-2 (COVID-19) RNA DUSTIN+probe Ql (Unsp spec) [facility] International normalized rat io (INR) calculationOrdered By: Aravind Recio on 04-30-2024 INR Coag (Bld) [Relative time] 1.2 {INR} [facility] Ketones Test strip Ql (U)Ord ered By: Aravind Recio on 04-30-2024 Ketones Ql (U) Negative Negative [facility] L501.4020on 04-30-2024 TROPONIN-I HS 43 pg/mL Normal 3.0-54.0 [facility] Comment on above: Order Comment: Comme nts: SPECIMEN #3'TROP' Serial specimen #1, #2 or #3: 3 Result Comment: Tomasa garcia Note: New Test Units and Gender Specific Reference Ranges. For more information see Policy Stat Procedure [place] High Sensitivity Troponin (TNIH) and attachments. Performed By: #### L 100.0100, L500.2500 #### [facility] [address] [place], [address] TROPONIN-I HS 56 pg/mL High 3.0-54.0 [facility] Comment on above: Order Comment: Comme nts: SPECIMEN #2'TROP' Serial specimen #1, #2 or #3: 2 Result Comment: Plea se Note: New Test Units and Gender Specific Reference Ranges. For more information see Policy Stat Procedure [place] High Sensitivity Troponin (TNIH) and attachments. Performed By: #### L 100.0100, L500.2500 #### [facility] [address] [place], [address] TROPONIN-I HS 65 pg/mL High 3.0-54.0 [facility] Comment on above: Order Comment: 'TROP ' Serial specimen #1, #2 or #3: 1 Result Comment: Plea se Note: New Test Units and Gender Specific Reference Ranges. For more information see Policy Stat Procedure [place] High Sensitivity Troponin (TNIH) and attachments. Performed By: #### L 500.3400, L501.2450 #### [facility] [address] [place], [address] Lipaseon 04-30-2024 Lipase [Catalytic activity/Vol] 12 U/L Low 13-75 [facility] Comment on above: Result Comment: Plea se note: LIPASE revised reference range effective 22. New Lipase methodology. Expected to produce lower values than the previous assay method. NEW Reference Range: 13 - 75 U/L Performed By: #### L 500.3400, L501.2450 #### [facility] [address] [place], [place], [address] (221) Lipase measurementOrdered By : Aravind Recio on 04-30-2024 Lipase [Catalytic activity/Vol] 12 U/L Low 13-75 [facility] Comment on above: Please note:LIPASE r evised reference range effective 22. New Lipase methodology. Expected to produce lower values than the previous assay method. NEW Reference Range: 13 - 75 U/L Liver Profileon 04-30-2024 Albumin [Mass/Vol] 3.2 g/dL Normal 3.2-5.0 [facility] Comment on above: Performed By: #### L 500.3400, L501.2450 #### [facility] [address] [place], [address] ALK P 96 U/L Normal 45-117 [facility] Comment on above: Performed By: #### L 500.3400, L501.2450 #### [facility] [address] [place], [address] ALT [Catalytic activity/Vol] 27 U/L Normal 13-56 [facility] Comment on above: Performed By: #### L 500.3400, L5.2450 #### [facility] [address] [place], [address] AST [Catalytic activity/Vol] 19 U/L Normal 15-37 [facility] Comment on above: Performed By: #### L 500.3400, L501.2450 #### [facility] [address] [place], [address] Bilirubin [Mass/Vol] 2.20 mg/dL High 0.20-1.00 [facility] Comment on above: Result Comment: For patients on eltrombopag therapy, use of Dimension [place] TBIL is not recommended. Performed By: #### L 500.3400, L501.2450 #### [facility] [address] [place], [address] Bilirubin.direct [Mass/Vol] 0.52 mg/dL High 0.00-0.30 [facility] Comment on above: Performed By: #### L 500.3400, L501.2450 #### [facility] [address] [place], [address] Globulin (S) [Mass/Vol] 4.0 g/dL Normal 2.2-4.2 [facility] Comment on above: Performed By: #### L 500.3400, L501.2450 #### [facility] [address] [place], [address] T PROT 7.2 g/dL Normal 6.4-8.2 [facility] Comment on above: Performed By: #### L 500.3400, L501.2450 #### [facility] [address] [place], [address] M100.678on 04-30-2024 M100.678 Pending SARS-CoV-2 (COVID 19) Negative INFLUENZA A Negative INFLUENZA B Negative RSV PCR Negative Normal [facility] Comment on above: Performed By: #### L 100.0100, L500.2500 #### [facility] [address] [place], [address] Magnesiumon 04-30-2024 Magnesium [Mass/Vol] 2.0 mg/dL Normal 1.6-2.6 [facility] Comment on above: Performed By: #### L 100.0100, L500.2500 #### [facility] [address] [place], [address] Magnesium measurementOrdered By: Aravind Recio on 04-30-2024 Magnesium [Mass/Vol] 2.0 mg/dL 1.6-2.6 [facility] Microscopic analysis of urin e for red blood cells (RBC)Ordered By: Aravind Recio on 04-30-2024 Urine RBC 0-5 SEEN /hpf 0-5 [facility] Mucus LM Ql (Urine sed)Order ed By: Aravind Recio on 04-30-2024 Mucus Ql (Urine sed) 0 SEEN /hpf [facility] Nitrite Test strip Ql (U)Ord ered By: Aravind Recio on 04-30-2024 Nitrite Ql (U) Negative Negative [facility] Partial Thromboplast Timeon 04-30-2024 aPTT Coag (Bld) [Time] 32.3 s Normal 24.1-36.2 [facility] Comment on above: Performed By: #### L 500.3400, L501.2450 #### [facility] [address] [place], [address] Protein Test strip Ql (U)Ord ered By: Aravind Recio on 04-30-2024 Protein Ql (U) 15 mg/dl High Negative [facility] Prothrombin Time w/INRon INR Coag (PPP) [Relative time] 1.2 {INR} Normal [facility] Comment on above: Performed By: #### L 500.3400, L501.2450 #### [facility] [address] [place], [address] PT Coag (PPP) [Time] 14.9 s Normal 11.7-14.9 [facility] Comment on above: Performed By: #### L 500.3400, L501.2450 #### [facility] [address] [place], [address] Prothrombin timeOrdered By: Aravind Recio on 04-30-2024 PT Coag (PPP) [Time] 14.9 s 11.7-14.9 [facility] RESPIRATORY PANEL MOLECULARo n 04-30-2024 RP PANEL [...] RSV B Not Detected Normal [facility] Comment on above: Performed By: #### L 500.3400, L501.2450 #### [facility] [address] [place], [address] Respiratory pathogens DNA an d RNA panel DUSTIN+probe (Resp)Ordered By: Susan Duran on 04-30-2024 Respiratory Panel (PCR) [facility] T4 Free Directon 04-30-2024 T4 FREE DIRECT 1.90 ng/dL High 0.76-1.46 [facility] Comment on above: Performed By: #### L 500.3400, L501.2450 #### [facility] [address] [place], [address] TSH QnOrdered By: Norbert on 04-30-2024 Thyroid Stimulating Hormone (TSH) 4.070 uIU/mL High 0.358-3.74 0 [facility] Thyroid Stim Hormone (TSH)on 04-30-2024 TSH 4.070 uIU/mL High 0.358-3.74 0 [facility] Comment on above: Performed By: #### L 100.0100, L500.2500 #### [facility] [address] [place], [address] Transitional cells LM Ql (Ur ine sed)Ordered By: Aravind Recio on 04-30-2024 Urine Transitional Epithelial Cells 0-5 SEEN /hpf 0-5 [facility] Troponin IOrdered By: Susan Duran on 04-30-2024 Troponin I High Sensitivity 43 pg/mL 3.0-54.0 [facility] Comment on above: Please Note: New Destiney t Units and Gender Specific Reference Ranges. For more information see Policy Stat Procedure [place] High Sensitivity Troponin (TNIH) and attachments. Urinalysis, Completeon 04-30 AMORPHOUS 1+ Normal [facility] Comment on above: Order Comment: COLLE CTOR TO SPECIFY Performed By: #### L 100.0100, L500.2500 #### [facility] [address] [place], [address] BACTERIA 2+ /hpf Normal None Seen [facility] Comment on above: Order Comment: COLLE CTOR TO SPECIFY Performed By: #### L 100.0100, L500.2500 #### [facility] [address] [place], [address] EPI,RENAL 0-5 SEEN Normal 0-5 [facility] Comment on above: Order Comment: COLLE CTOR TO SPECIFY Performed By: #### L 100.0100, L500.2500 #### [facility] [address] [place], [address] EPI,SQUAMOUS 5-10 SEEN Normal 5-10 [facility] Comment on above: Order Comment: LISANDRA CTOR TO SPECIFY Performed By: #### L 100.0100, L500.2500 #### [facility] [address] [place], [address] EPI,TRANSITION 0-5 SEEN Normal 0-5 [facility] Comment on above: Order Comment: LISANDRA CTOR TO SPECIFY Performed By: #### L 100.0100, L500.2500 #### [facility] [address] [place], [address] RBC 0-5 SEEN Normal 0-5 [facility] Comment on above: Order Comment: LISANDRA CTOR TO SPECIFY Performed By: #### L 100.0100, L500.2500 #### [facility] [address] [place], [address] WBC 0-5 SEEN Normal 0-5 [facility] Comment on above: Order Comment: LISANDRA CTOR TO SPECIFY Performed By: #### L 100.0100, L500.2500 #### [facility] [address] [place], [address] Mucus Ql (Urine sed) 0 SEEN Normal [facility] Comment on above: Order Comment: LISANDRA CTOR TO SPECIFY Performed By: #### L 100.0100, L500.2500 #### [facility] [address] [place], [address] Urine blood detectionOrdered By: Aravind Recio on 04-30-2024 Urine Occult Blood Negative Negative [facility] Urine clarityOrdered By: Addy Recio on 04-30-2024 Clarity (U) Clear Clear [facility] Urine color determinationOrd ered By: Aravind Recio on 04-30-2024 Color (U) Yellow Yellow [facility] Urine cultureOrdered By: Aut umn White on 04-30-2024 Bacteria identified Cx Nom (U) Positive Abnormal [facility] Urine leukocyte esterase det ection by dipstickOrdered By: Aravind Recio on 04-30-2024 Leukocyte esterase Test strip Ql (U) 100 /ul High Negative [facility] Urine pHOrdered By: Aravind thomas on 04-30-2024 pH (U) 7.0 [pH] 5.0 - 8.0 [facility] Urine sediment bacteria coun t by microscopy (number/high power field)Ordered By: Aravind Recio on 04-30-2024 Bacteria LM.HPF (Urine sed) [#/Area] 2 /[HPF] None Seen [facility] Urine specific gravity measu rementOrdered By: Aravind Recio on 04-30-2024 Specific gravity (U) [Rel density] 1.010 1.002-1.03 0 [facility] Urobilinogen Ql (U)Ordered B y: Aravind Recio on 04-30-2024 Urobilinogen (U) [Mass/Vol] 8 mg/dL High Normal [facility] White blood cell countOrdere d By: Aravind Recio on 04-30-2024 Urine WBC 0-5 SEEN /hpf 0-5 [facility] aPTT Coag (PPP) [Time]Ordere d By: Aravind Recio on 04-30-2024 aPTT Coag (Bld) [Time] 32.3 s 24.1-36.2 [facility] CNPNon 04-24-2024 CNPN Telephone (GIOVANNI) MICHAEL MEIER ([id number]) 1940 F Date Time Provider Department 04/24/24 [facility] During your visit today, we recorded [...] Date Reviewed: 04/10/2024 Reviewed by: Sharon Jarrett APRN.GERICARE AIDE - Fully Assessed Reason for Visit: Leg [...] adult [Z68.37] (more content not included)... Normal [facility] CNTHERAPYon 04-20-2024 CNTHERAPY OT/PT/Speech Visit ( LDPT) MICHAEL MEIER ([id number]) 1940 F Date Time Provider Department 04/20/24 12:45 PM SARAH MERCHANT Date Time Provider Department Center 04/20/2024 12:45 PM [id number] for Visit: Physical Therapy [503] PT [...] Date Reviewed: 04/10/2024 Reviewed by: Sharon Jarrett APRN.GERICARE AIDE - Fully Assessed Prescriptions as of 07/03/2024 [...] 1 tablet by mouth once daily. Normal [facility] [id number] 04-18-2024 [id number] HNO ID: [id number] Author: SARAH MERCHANT PT Service: ? Author Type: Physical Therapist Type: [id number] Filed: 04/18/2024 19:04 Note Text: [facility] Sports Therapy Physical Therapy Plan of Care Certification Patient Name: Michael Meier : 1940 CC #: [id number] Date: 04/18/2024 To: Geeta Cadet,* From Therapist: [...] for Episode of Care: created on 11/15/23 [place] in home exercise program. Patient will demonstrate [...] Patient to be seen for Therapeutic exercise (17998), Neuromuscular re-education (39837), Therapeutic activities (14647), Self-usp management (65593), Gait Training (85151), Patient/Family/Caregiver Education, General Conditioning PLAN FOR NEXT VISIT: continue to progress endurance, strength, balance and gait. promote increased mobility/activity at home For further details regarding this patient refer to the Physical Therapy electronically documented visit dated 04/18/2024. Provider Attestation I have reviewed the treatment plan for Michael Meier, CCF# [id number] for the period of 04/18/24 -- 05/18/24, established on 04/18/2024. Signature certifies the need for therapy services. Normal [facility] CNTHERAPYon 04-18-2024 CNTHERAPY OT/PT/Speech Visit ( LDPT) HARDEEPMICHAEL ([id number]) 1940 F Date Time Provider Department 04/18/24 1:30 PM SARAH MERCHANT LDPT Date Time Provider Department Center 04/18/2024 1:30 PM [id number], CARLA LDPT [facility] Reason for Visit: PT Progress Note [...] Date Reviewed: 04/10/2024 Reviewed by: Sharon Jarrett APRN.GERICARE AIDE - Fully Assessed Prescriptions as of 05/08/2024 [...] by mouth once daily. Letter Text Normal [facility] CNOVon 04-10-[address] [facility] Office Visit (GENSWS ) MICHAEL MEIER ([id number]) 1940 F Date Time Provider Department 04/10/24 4:00 PM SHARON JARRETT During your visit today, we recorded the following information about you: Sharon Jarrett APRN.CNP 04/10/2024 4:04 PM Signed FOLLOW UP VISIT - ENDOSCOPY Michael Meier 1940 [id number] REFERRING PHYSICIAN: No referring provider defined for [...] Date Reviewed: 04/10/2024 Reviewed by: Sharon Jarrett APRN.GERICARE AIDE - Fully Assessed Reason for Visit: Follow [...] rosuvastatin (CR (more content not included)... Normal [facility] ANES POSTPROC EVALon 024 ANES POSTPROC EVAL HNO ID: [id number] Author: YVONNE [place] MD Service: Anesthesiology Author Type: Anesthesiologist Type: Anesthesia Postprocedure Evaluation Filed: 03/31/2024 11:44 Note Text: POST ANESTHESIA EVALUATION NOTE : 1940 Procedure Summary Date: 03/31/24 Room / Location: [facility] Endoscopy Anesthesia Start: 1053 Anesthesia Stop: 1115 Procedure: EGD DIAGNOSTIC Diagnosis: Epigastric abdominal pain Pulmonary hypertension (HCC) (Epigastric abdominal pain) Scheduled Providers: Raymundo De León MD; Yvonne [place] MD; Kelsea Mo APRN.JACKAROO Responsible Provider: Yvonne [place] MD Anesthesia Type: [...] March 31, 2024 TIME: 11:44 AM CSN: [id number] Normal [facility] ANES PRE-OPon 03-31-2024 ANES PRE-OP HNO ID: [id number] Author: YVONNE [place] MD Service: Anesthesiology Author Type: Anesthesiologist Type: Anesthesia Preprocedure Evaluation Filed: 03/31/2024 10:48 Note Text: ANESTHESIOLOGY DAY OF SURGERY NOTE : 1940 Procedure Information Date/Time: 03/31/24 1115 Scheduled providers: Raymundo De León MD; Yvonne [place] MD; Kelsea Mo APRN.JACKAROO Procedure: EGD DIAGNOSTIC Location: [facility] Estimated body mass index is 38.27 kg/m? as calculated from the following: Height as of 03/27/24: 165.1 cm (5' 5). Weight as of 03/27/24: 104.3 kg (230 lb). Most recent hematocrit and potassium results: Hematocrit 43.0 11/25/2023 Potassium 3.8 11/25/2023 Relevant Problems ANESTHESIA (+) JOSE on CPAP CARDIO (+) A-fib (HCC) (+) Cardiac resynchronization therapy pacemaker (IMPORT COORDINATOR-P) in place (+) WELCH (dyspnea on exertion) [...] Surgery/Procedure. SIGNATURE (more content not included)... Normal [facility] EGD Study observation Narrat rupa 03-31-2024 [facility] Gastrointestinal Endoscopy Patient Name: Michael Meier Procedure Date: 03/31/2024 10:20 AM Date of : 1940 Admit Type: Outpatient Age: 83 Room: [facility] Gender: Female Note Status: Finalized Attending MD: Raymundo De León MD, [id number] Procedure: Upper GI endoscopy Indications: Epigastric abdominal [...] be scheduled. Procedure Code(s): --- Professional --- 16123, Esophagogastroduodenoscopy, flexible, transoral; with biopsy, single or multiple Diagnosis Code(s): --- Professional --- K44.9, Diaphragmatic hernia without obstruction or gangrene K29.70, Gastritis, unspecified, without bleeding R10.13, Epigastric pain (more content not included)... PROVATION [facility] Radiology Study observation (narrative) [facility] HISTORY PHYSICALon HISTORY PHYSICAL HNO ID: [id number] Author: RAYMUNDO DE LEÓN MD Service: General Surgery Author Type: Physician Type: H&P Filed: 03/31/2024 10:47 Note Text: HISTORY AND PHYSICAL Michael Meier : 1940 REFERRING PHYSICIAN: Michael Puga [address] [facility] [address] CHIEF COMPLAINT: Patient presents with: Consult: EGD [...] a history of ulcers/ peptic ulcer disease. iMchael denies family history of gastric issues. Michael [...] was 01/[address] De León at [facility] Sedation:Midazolam 4 mg IV, Fentanyl 100 [...] Knee replacement, (more content not included)... Normal [facility] SURGICAL PATHOLOGYon 024 CASE REPORT [facility] Comment on above: Order Comment: Lori mosqueda Type: TISSUE SPECIMEN Ordering Facility: [facility] Address: [address] [place] [address] Result Comment: Surg ical Pathology Report Case: [id number] Authorizing Provider: Raymundo De León MD Collected: 03/31/2024 11:01 AM Ordering Location: [facility] Received: 03/31/2024 12:34 PM Pathologist: Tanna Nathan MD Specimens: A) - Small Bowel, Duodenum, Biopsy B) - Stomach, Biopsy, r/o H. Pylori C) - Esophagus, Distal, Biopsy D) - Esophagus, Mid, Biopsy Performed By: #### S #### [facility] CLIA [id number] [address] [place] [address] [place] [address] [place] FINAL DIAGNOSIS [facility] Comment on above: Order Comment: Lori mosqueda Type: TISSUE SPECIMEN Ordering Facility: [facility] Address: [address] [place] [address] Result Comment: A. S mall bowel, duodenum, [...] AEB/kr 04/04/2024 Performed By: #### S #### [facility] CLIA [id number] [address] [place] [address] OF [facility] FINAL PERFORMING LAB Normal [facility] Comment on above: Order Comment: Speci men Type: TISSUE SPECIMEN Ordering Facility: [facility] Address: [address] [place] [address] Result Comment: Diag nostic interpretation performed at [facility], [address] [place] [address] CLIA# [id number] Enterprise Security Architect: Todd Fields M.D. Performed By: #### S #### [facility] CLIA [id number] [address] [place] [address] OF [facility] GROSS DESCRIPTION Normal [facility] Comment on above: Order Comment: Speci men Type: TISSUE SPECIMEN Ordering Facility: [facility] Address: [address] [place] [address] Result Comment: A. S mall Bowel, Duodenum, [...] 0.2 cm. Totally submitted in one cassette. [facility] March 31, 2024 3:19 PM Gross examination performed at [facility], [address] [place] [address] Performed By: #### S #### [facility] CLIA [id number] [address] [place] [address] [place] Upper GI endoscopy 03-31-2 024 Upper GI endoscopy [facility] Gastrointestinal Endoscopy Patient Name: Michael Meier Procedure Date: 03/31/2024 10:20 AM Date of : 1940 Admit Type: Outpatient Age: 83 Room: [facility] Gender: Female Note Status: Finalized Attending MD: Raymundo De León MD, [id number] Procedure: Upper GI endoscopy Indications: Epigastric abdominal [...] be scheduled. Procedure Code(s): --- Professional --- 70400, Esophagogastroduodenoscopy, flexible, transoral; with biopsy, single or multiple Diagnosis Code(s): --- Professional --- K44.9, Diaphragmatic hernia without obstruction or gangrene K29.70, Gastritis, unspecified, without bleeding R10.13, Epigastric pain R12, Heartburn CPT copyright 2021 [employer]. All rights reserved. The codes documented in this report are preliminary and upon horse buyer review may be revised to meet current compliance requirements. Attending Participation: I personally performed the entire procedure. Scope In: 11:00:34 AM Scope Out: 11:04:24 AM MD Raymundo Juarez MD 03/31/2024 11:08:03 AM This report has been signed electronically by Raymundo De León MD Number of Addenda: 0 Note Initiated On: 03/31/2024 10:20 AM Estimated Blood Loss: Estimated blood loss was minimal. Normal [facility] HISTORY PHYSICALon HISTORY PHYSICAL HNO ID: [id number] Author: MARY FOSTER APRN.CARMELINA Service: ? Author [...] Assessment: c/w statin Cardiac resynchronization therapy pacemaker (IMPORT COORDINATOR-P) in place Assessment: s/p 10/2021 ICD placement, [...] large neck Non-male patient STOP-Bang Score: 2 [id number] Score: Age: >=75 Sex: female CHF history: No Hypertension history: Yes Stroke/TIA/thromboembolism history: Yes Vascular disease history: No Diabetes history: No [id number] Score: 6 ARISCAT Score: Age: >80 Preoperative [...] this ti (more content not included)... Normal [facility] CNTHERAPYon 03-23-2024 CNTHERAPY OT/PT/Speech Visit ( LDPT) MICHAEL MEIER ([id number]) 1940 F Date Time Provider Department 03/23/24 12:45 PM SARAH MERCHANT LDPT Date Time Provider Department Center 03/23/2024 12:45 PM [id number], CARLA LDPT [facility] Reason for Visit: Physical Therapy [503] [...] 1 tablet by mouth once daily. Normal [facility] CNTHERAPYon 03-20-2024 CNTHERAPY OT/PT/Speech Visit ( LDPT) BRADENMICHAEL DAVIES ([id number]) 1940 F Date Time Provider Department 03/20/24 2:15 PM SARAH MERCHANT Date Time Provider Department Center 03/20/2024 2:15 PM [id number] MERCHANT [facility] Reason for Visit: Physical Therapy [503] [...] 1 tablet by mouth once daily. Normal [facility] CNTHERAPYon 03-16-2024 CNTHERAPY OT/PT/Speech Visit ( LDPT) MICHAEL MEIER ([id number]) 1940 F Date Time Provider Department 03/16/24 12:45 PM SARAH MERCHANT LDPT Date Time Provider Department Center 03/16/2024 12:45 PM [id number], SARAH LDPT [facility] Reason for Visit: Physical Therapy [503] [...] 1 tablet by mouth once daily. Normal [facility] CNTHERAPYon 03-14-2024 CNTHERAPY OT/PT/Speech Visit ( LDPT) MICHAEL MEIER ([id number]) 1940 F Date Time Provider Department 03/14/24 10:00 AM JOY SUN Date Time Provider Department Center 03/14/2024 10:00 AM [id number] SUN [facility] Reason for Visit: Physical Therapy [503] Primary [...] 1 tablet by mouth once daily. Normal [facility] CNOVon 03-13-[address] [facility] Office Visit (GENSWS ) MICHAEL MEIER ([id number]) 1940 F Date Time Provider Department 03/13/24 2:30 PM [facility] your visit today, we recorded the following information about you: Temperature Pulse Blood pressure Weight 97.5 degrees 71/minute 184/75 105 kg Height 1.651 m Sharon Jarrett APRN.CNP 03/13/2024 2:47 PM Signed HISTORY AND PHYSICAL Michael Meier : 1940 REFERRING PHYSICIAN: Michael Puga [address] [facility] [address] CHIEF COMPLAINT: Patient presents with: Consult: EGD [...] history of gastric issues. Michael follows with [facility]. Last OV 02/2024- she has had [...] was 01/[address] De León at [facility] Sedation:Midazolam 4 mg IV, Fentanyl 100 [...] HX APPENDECTO (more content not included)... Normal [facility] Priscila 03-13-2024 [facility] Telephone (Etherstack) MICHAEL MEIER ([id number]) 1940 F Date Time Provider Department 03/13/24 [...] [E66.811] 03/07/2018 (more content not included)... Normal [facility] Priscila 03-08-2024 CNPN Telephone (FAMPWS) MICHAEL MEIER ([id number]) 1940 F Date Time Provider Department 03/08/24 [...] 03/11/2015 B (more content not included)... Normal [facility] CNTHERAPYon 03-02-2024 CNTHERAPY OT/PT/Speech Visit ( LDPT) BRADENMICHAEL DAVIES ([id number]) 1940 F Date Time Provider Department 03/02/24 12:45 PM SARAH MERCHANT Date Time Provider Department Center 03/02/2024 12:45 PM [id number] MERCHANT [facility] Reason for Visit: Physical Therapy [503] [...] 1 tablet by mouth once daily. Normal [facility] CNOVon 03-01-[address] [facility] Office Visit (FAMPWS ) MICHAEL MEIER ([id number]) 1940 F Date Time Provider Department 03/01/24 5:40 PM MICHAEL PGUAPSHELL During your visit today, we recorded the [...] at 1.6 with recent lab check at [employer] office [facility] at [facility] JOSE, she is using her Bipap each [...] Chronic dyspnea, has been fully evaluated by [employer] whom doesn't feel this is due to [...] Knee replacement, total -Left - [facility] ARTHRP KNE CONDYLEANDPLATU MEDIALANDLAT COMPARTMENTS 12/30/2009 Right knee replaced COLONOSCOPY FLX DX W/COLLJ SPEC WHEN PFRMD 06/29/2017 Colonoscopy EGD 10/17/2020 EGD W/O [facility] SPEC VARICIES INJ 01/08/2022 ESOPHAGOGASTRODUODENOSCOPY TRANSORAL DIAGNOSTIC [...] daily. sucralfa (more content not included)... Normal [facility] 03-01-2024 [facility] MICHAEL MEIER ([id number]) 1940 F Date Time Provider Department 03/01/24 [facility] During your visit today, we recorded the following information about you: Michael Puga DO 03/01/2024 10:51 PM Signed Fax my office note from today and standard wheelchair to [facility] and then notify her DO Brigette Dow [place], [place] 03/02/2024 1:33 PM Addendum Faxed to [place]. Left message to return call. Please notify [...] BMI 37.0- (more content not included)... Normal [facility] CNTHERAPYon 02-17-2024 CNTHERAPY OT/PT/Speech Visit ( LDPT) MICHAEL MEIER ([id number]) 1940 F Date Time Provider Department 02/17/24 3:45 PM SARAH MERCHANT LDPT Date Time Provider Department [place] 02/17/2024 3:45 PM [id number], CARLA LDPT [facility] Reason for Visit: PT Progress Note [...] 1 tablet by mouth once daily. Normal [facility] CNTHERAPYon 02-14-2024 CNTHERAPY OT/PT/Speech Visit ( LDPT) HARDEEPMICHAEL Augusta ([id number]) 1940 F Date Time Provider Department 02/14/24 1:30 PM WILFRED MCCLELLAN LDFRANTZ Date Time Provider Department Center 02/14/2024 1:30 PM [id number], PATRICK LDFRANTZ [facility] Reason for Visit: Physical Therapy [503] [...] 1 tablet by mouth once daily. Normal [facility] CNTHERAPYon 02-10-2024 CNTHERAPY OT/PT/Speech Visit ( LDPT) MICHAEL MEIER ([id number]) 1940 F Date Time Provider Department 02/10/24 12:45 PM SARAH MERCHANT Date Time Provider Department Center 02/10/2024 12:45 PM [id number], CARLA LDPT [facility] Reason for Visit: Physical Therapy [503] [...] 1 tablet by mouth once daily. Normal [facility] CNTHERAPYon 02-07-2024 CNTHERAPY OT/PT/Speech Visit ( LDPT) MICHAEL MEIER ([id number]) 1940 F Date Time Provider Department 02/07/24 2:15 PM SARAH MERCHANT LDPT Date Time Provider Department Center 02/07/2024 2:15 PM [id number], CARLA LDPT [facility] Reason for Visit: Physical Therapy [503] [...] 1 tablet by mouth once daily. Normal [facility] Echo Completeon 02-02-2024 Echo Complete [facility] [address] [place] [address] Echo Complete 02/02/24 1302 MR#: [id number] Acct: [id number] Name: MICHAEL MEIER Rep #: [id number] : 1940 83 From: Gallo Hickey MD [...] Horne Performed By: Roby Rouse RCS 02/02/24 2454 Date Gallo Hickey MD CC: Dr. Michael Puga DO; NIDA Katz Date Dictated: 02/02/24 1302 Date Transcribed: 02/02/24 701 It Systems Engineer: Signed Normal [facility] CNTHERAPYon 01-31-2024 CNTHERAPY OT/PT/Speech Visit ( LDPT) MICHAEL MEIER ([id number]) 1940 F Date Time Provider Department 01/31/24 2:15 PM SARAH MERCHANT LDPT Date Time Provider Department Center 01/31/2024 2:15 PM [id number], CARLA LDPT [facility] Reason for Visit: Physical Therapy [503] [...] 1 tablet by mouth once daily. Normal [facility] CNTHERAPYon 01-26-2024 CNTHERAPY OT/PT/Speech Visit ( LDPT) MICHAEL MEEIR ([id number]) 1940 F Date Time Provider Department 01/26/24 3:00 PM WILFRED MCCLELLAN LDPT Date Time Provider Department Center 01/26/2024 3:00 PM [id number], PATRICK LDPT [facility] Reason for Visit: Physical Therapy [503] [...] 1 tablet by mouth once daily. Normal [facility] 12 Lead EKG performed by [facility] on 01-25-2024 12 Lead EKG performed by [address] [address] 12 Lead EKG performed by [facility] 01/25/24800 MR#: [id number] Acct: [id number] Name: MICHAEL MEIER Rep #: [id number] : 1940 83 From: Anabel Spence Attending Dr: NIDA Katz Status: DEP AMB Ordering Dr: Anabel Horne Date: 01/02 08/24 Location: [facility] Sex: F C Admitted: [facility]/12 Lead EKG performed by [facility] ECG Report Interpretation Si nus Rhythm WITHIN NORMAL LIMITSElectronically signed on 01/25/2024 at 14:38 by Gallo Hickey Software Version [id number] 01/25/24 1441 Date Anabel ALVA CC: Dr. Michael Puga DO Date Dictated: 01/25/24800 Date Transcribed: 01/25/24800 It Systems Engineer: SILVERIO Signed Normal [facility] BNP,B-Type NATRIURETIC PEPTI Kenyatta 01-25-2024 Natriuretic peptide B (Bld) [Mass/Vol] 127.2 pg/mL High 0-100 [facility] Comment on above: Performed By: #### L 100.0100, L500.2500 #### [facility] [address] [place], [address] Basic Metabolic Profile (BMP )on 01-25-2024 BUN/CRE 27.3 RATIO High 10-20 [facility] Comment on above: Performed By: #### L 100.0100, L500.2500 #### [facility] [address] [place], [address] CA,Total 8.9 mg/dL Normal 8.5-10.1 [facility] Comment on above: Performed By: #### L 100.0100, L500.2500 #### [facility] [address] [place], [address] Chloride [Moles/Vol] 105 mmol/L Normal 98-107 [facility] Comment on above: Performed By: #### L 100.0100, L500.2500 #### [facility] [address] [place], [address] CO2 [Moles/Vol] 30.0 mmol/L Normal 21.0-32.0 [facility] Comment on above: Performed By: #### L 100.0100, L500.2500 #### [facility] [address] [place], [address] Creatinine [Mass/Vol] 0.55 mg/dL Normal 0.55-1.02 [facility] Comment on above: Result Comment: The validity of the calculated GFR GFRAA in patients over 70 years has not been determined. Clinical correlation is essential. Performed By: #### L 100.0100, L500.2500 #### [facility] [address] [place], [address] EST GFR - AA 136 mL/min Normal >60 [facility] Comment on above: Result Comment: Afri can Congolese GFR Calc Performed By: #### L 100.0100, L500.2500 #### [facility] [address] [place], [address] GAP 6 Normal 5-15 [facility] Comment on above: Performed By: #### L 100.0100, L500.2500 #### [facility] [address] [place], [address] GFR/1.73 sq M.predicted among non-blacks MDRD (S/P/Bld) [Vol rate/Area] 112 mL/min/{1.73_m2} Normal >60 [facility] Comment on above: Result Comment: Non- GFR Calc Performed By: #### L 100.0100, L500.2500 #### [facility] [address] [place], [address] Glucose [Mass/Vol] 109 mg/dL High 74-106 [facility] Comment on above: Result Comment: Fast ing Glucose result from 100 to 125 mg/dL suggests IMPAIRED HOMEOSTASIS per A.D.A. criteria. Performed By: #### L 100.0100, L500.2500 #### [facility] [address] [place], [address] Potassium [Moles/Vol] 3.2 mmol/L Low 3.5-5.1 [facility] Comment on above: Performed By: #### L 100.0100, L500.2500 #### [facility] [address] [place], [address] Sodium [Moles/Vol] 141 mmol/L Normal 136-145 [facility] Comment on above: Performed By: #### L 100.0100, L500.2500 #### [facility] [address] [place], [address] Urea nitrogen [Mass/Vol] 15 mg/dL Normal 7-18 [facility] Comment on above: Performed By: #### L 100.0100, L500.2500 #### [facility] [address] [place], [address] Cardiology Visit Reporton Cardiology Visit Report [facility] [address] [place] [address] OFFICE VISIT Date of Service: 01/25/24 MR#: [id number] Acct: [id number] Name: MICHAEL MEIER Rep #: [id number] : 1940 Provider: NIDA Carbajal Age/Sex: 83/F Location: [facility] Status: Signed [facility] History of Present Illness Details: MICHAEL MEIER, [...] Visit Reasons: 1 Y FU (MOVED FROM [facility]) Buffer Machine Required: No Is patient in pain?: No [...] (more content not included)... Normal [facility] Thyroid Stim Hormone (TSH)on 01-25-2024 TSH 1.600 uIU/mL Normal 0.358-3.74 0 [facility] Comment on above: Performed By: #### L 100.0100, L500.2500 #### [facility] [address] [place], [address] [id number] 01-18-2024 [id number] HNO ID: [id number] Author: SARAH MERCHANT, PT Service: ? Author Type: Physical Therapist Type: [id number] Filed: 01/18/2024 16:07 Note Text: [facility] Physical Therapy Plan of Care Certification Patient Name: Michael Meier : 1940 [facility] #: [id number] Date: 01/18/2024 To: Geeta Cadet,* From Therapist: [...] on 11/15/23 through 01/14/24, extended thru 04/17/24 [place] in home exercise program. Patient will demonstrate [...] Patient to be seen for Therapeutic exercise (98651), Neuromuscular re-education (22295), Therapeutic activities (44640), Self-usp management (65266), Gait Training (96985), Patient/Family/Caregiver Education, General Conditioning PLAN FOR NEXT VISIT: continue to progress LE strength, balance, gait AND endurance For further details regarding this patient refer to the Physical Therapy electronically documented visit dated 01/18/2024. Provider Attestation I have reviewed the treatment plan for Michael Meier, [facility]# [id number] for the period of 01/18/24 -- 04/17/24, established on 01/18/2024. Signature certifies the need for therapy services. Normal [facility] CNTHERAPYon 01-18-2024 CNTHERAPY OT/PT/Speech Visit ( LDPT) HARDEEPMICHAEL Augusta ([id number]) 1940 F Date Time Provider Department 01/18/24 1:30 PM SARAH MERCHANT LDPT Date Time Provider Department Center 01/18/2024 1:30 PM [id number], CARLA LDPT [facility] Reason for Visit: PT Progress Note [...] by mouth once daily. Letter Text Normal [facility] Priscila 01-10-2024 LORRI Telephone (FAMPWS) BRADENMICHAEL DAVIES ([id number]) 1940 F Date Time Provider Department 01/10/24 [...] region without neurogenic claudication [M48.061] Order(s):STANDARD WHEELCHAIR [[id number]] Order #: [id number] Prescriptions as of 01/11/2024 - levothyroxine (SYNTHROID) [...] [R40.0] 04/ (more content not included)... Normal [facility] CNTHERAPYon 12-13-2023 CNTHERAPY OT/PT/Speech Visit ( LDPT) MICHAEL MEIER ([id number]) 1940 F Date Time Provider Department 12/13/23 3:45 PM SARAH MERCHANT LDPT Date Time Provider Department Center 12/13/2023 3:45 PM [id number], CARLA LDPT [facility] Reason for Visit: Physical Therapy [503] [...] Intolerance Date Reviewed: 12/01/2023 Reviewed by: Julianna Caon LPN - Fully Assessed Prescriptions as of [...] Take 1 tablet by mouth once daily. [facility] CNTHERAPYon 12-07-2023 CNTHERAPY OT/PT/Speech Visit ( LDPT) HARDEEPMICHAEL ([id number]) 1940 F Date Time Provider Department 12/07/23 4:30 PM WILFRED MCCLELLAN Date Time Provider Department [place] 12/07/2023 4:30 PM [id number] MCCLELLAN [facility] Reason for Visit: Physical Therapy [503] [...] Take 1 tablet by mouth once daily. Curtain Supervisor: Therapy (PT/OT/Speech/Resp) ID: [id number] 12/07/2023 5:18 PM Author: WILFRED MCCLELLAN Signed by WILFRED MCCLELLAN PRESERVATIVE FILLER MACHINE OPERATOR on 12/07/2023 at 5:18 PM Document text: Program_ID:[id number] Access Code: [email or web address] URL: https://[employer] Date: 12-07-2023 Prepared By: Margoth Mcclellan Program Notes Exercises - Seated Hip Abduction - 1-2 x daily - 5 x weekly - 2-3 sets - 10 reps Normal [facility] THERAPY NTon 12-07-2023 THERAPY NT HNO ID: [id number] Author: WILFRED MCCLELLAN PTA Service: ? Author Type: Quality Assurance Monitor Body Type: Therapy (PT/OT/Speech/Resp) Filed: 12/07/2023 17:18 Note Text: Program_ID:[id number] Access Code: [email or web address] URL: https://[employer] Date: 12-07-2023 Prepared By: Margoth Mcclellan Program Notes Exercises - Seated Hip Abduction - 1-2 x daily - 5 x weekly - 2-3 sets - 10 reps Normal [facility] CNOVon 12-01-2023 CNOV Office Visit (FAMPWS ) MICHAEL MEIER ([id number]) 1940 F Date Time Provider Department 12/01/23 [...] it. PAST MEDICAL HISTORY No date: A-fib ([facility]) No date: Allergic rhinitis, cause unspecified No date: Arrhythmia No date: Arthritis No date: Greater trochanteric bursitis of left hip 2003: Melanoma of skin, site unspecified Comment: back No date: Osteoarthritis of left hip No date: Other and unspecified hyperlipidemia No date: Situational mixed anxiety and depressive disorder No date: Sleep apnea No date: Stroke ([facility]) No date: Unspecified essential hypertension No date: Unspecified gastritis and gastroduodenitis PAST SURGICAL HISTORY No date: ABDOMINAL SURGERY HX No date: APPENDECTOMY HX 12/09/2003: ARTHRP ACETBLR/PROX FEM PROSTC AGRFT/ALGRFT Comment: right hip, redone, 07/2004: ARTHRP ACETBLR/PROX FEM PROSTC AGRFT/ALGRFT; Left 11/15/2009: ARTHRP KATIE CONDYLEANDPLATU MEDIALANDLAT COMPARTMENTS Comment: Knee replacement, total -Left - [facility] 12/30/2009: ARTHRP BARRYE CONDYLEANDPLATU MEDIALANDLAT COMPARTMENTS Comment: Right knee replaced 06/29/2017: COLONOSCOPY FLX DX W/COLLJ SPEC WHEN PFRMD Comment: Colonoscopy 10/17/2020: EGD Comment: 01/08/2022: EGD W/O [facility] SPEC VARICIES INJ 11/29/2000: ESOPHAGOGASTRODUODENOSCOPY TRANSORAL DIAGNOSTIC [...] Leg cramps Sulfa (Sulfonamide * hives Vicodin [[place] (more content not included)... Normal [facility]-2023 [facility] MICHAEL MEIER ([id number]) 1940 F Date Time Provider Department 11/26/23 [...] CPAP [G47.33] (more content not included)... Normal [facility] CBC W Auto Differential pane l (Bld)on 11-25-2023 Basophils (Bld) [#/Vol] 0.10 10*3/uL Normal <0.11 [facility] Comment on above: Order Comment: Speci men Type: BLOOD SPECIMENOrdering Facility: [facility] Address: [address] [place] [address] Performed By: #### 5 7021-8 ####[facility] LABCLIA [id number] [place] [address] [place] Basophils/100 WBC (Bld) 1.3 % Normal [facility] Comment on above: Order Comment: Speci men Type: BLOOD SPECIMENOrdering Facility: [facility] Address: [address] [place] [address] Performed By: #### 5 7021-8 ####[facility] LABCLIA [id number] [place] [address] [place] Differential cell count method Nom (Bld) Auto Normal [facility] Comment on above: Order Comment: Speci men Type: BLOOD SPECIMENOrdering Facility: [facility] Address: [address] [place] [address] Performed By: #### 5 7021-8 ####[facility] LABCLIA [id number] [place] [address] [place] Eosinophils (Bld) [#/Vol] 0.23 10*3/uL Normal <0.46 [facility] Comment on above: Order Comment: Speci men Type: BLOOD SPECIMENOrdering Facility: [facility] Address: [address] [place] [address] Performed By: #### 5 7021-8 ####[facility] LABCLIA [id number] [place] [address] [place] Eosinophils/100 WBC (Bld) 3.0 % Normal [facility] Comment on above: Order Comment: Speci men Type: BLOOD SPECIMENOrdering Facility: [facility] Address: [address] [place] [address] Performed By: #### 5 7021-8 ####[facility] LABCLIA [id number] [place] [address] [place] Erythrocyte distribution width (RBC) [Ratio] 14.6 % Normal 11.5-15.0 [facility] Comment on above: Order Comment: Speci men Type: BLOOD SPECIMENOrdering Facility: [facility] Address: [address] [place] [address] Performed By: #### 5 7021-8 ####[facility] LABCLIA [id number] [place] [address] [place] Hematocrit (Bld) [Volume fraction] 43.0 % Normal 36.0-46.0 [facility] Comment on above: Order Comment: Speci men Type: BLOOD SPECIMENOrdering Facility: [facility] Address: [address] [place] [address] Performed By: #### 5 7021-8 ####[facility] LABCLIA [id number] [place] [address] [place] Hemoglobin (Bld) [Mass/Vol] 13.7 g/dL Normal 11.5-15.5 [facility] Comment on above: Order Comment: Speci men Type: BLOOD SPECIMENOrdering Facility: [facility] Address: [address] [place] [address] Performed By: #### 5 7021-8 ####[facility] LABCLIA [id number] [facility] [place] [address] [place] Immature granulocytes (Bld) [#/Vol] 10*3/uL Normal <0.10 [facility] Comment on above: Order Comment: Speci men Type: BLOOD SPECIMENOrdering Facility: [facility] Address: [address] [place] [address] Performed By: #### 5 7021-8 ####[facility] LABCLIA [id number] [facility] [place] [address] [place] [facility] Immature granulocytes/100 WBC (Bld) 0.1 % Normal [facility] Comment on above: Order Comment: Speci men Type: BLOOD SPECIMENOrdering Facility: [facility] Address: [address] [place] [address] Performed By: #### 5 7021-8 ####[facility] LAB[facility] [id number] [facility] [place] [address] [place] Lymphocytes (Bld) [#/Vol] 1.29 10*3/uL Normal 1.00-4.00 [facility] Comment on above: Order Comment: Speci men Type: BLOOD SPECIMENOrdering Facility: [facility] Address: [address] [place] [address] Performed By: #### 5 7021-8 ####[facility] LABCLIA [id number] [place] [address] [place] [facility] Lymphocytes/100 WBC (Bld) 16.9 % Normal [facility] Comment on above: Order Comment: Speci men Type: BLOOD SPECIMENOrdering Facility: [facility] Address: [address] [place] [address] Performed By: #### 5 7021-8 ####[facility] LABCLIA [id number] [place] [address] [place] MCH (RBC) [Entitic mass] 29.7 pg Normal 26.0-34.0 [facility] Comment on above: Order Comment: Speci men Type: BLOOD SPECIMENOrdering Facility: [facility] Address: [address] [place] [address] Performed By: #### 5 7021-8 ####[facility] LABCLIA [id number] [place] [address] [place] MCHC (RBC) [Mass/Vol] 31.9 g/dL Normal 30.5-36.0 [facility] Comment on above: Order Comment: Speci men Type: BLOOD SPECIMENOrdering Facility: [facility] Address: [address] [place] [address] Performed By: #### 5 7021-8 ####[facility] LABCLIA [id number] [place] [address] [place] MCV (RBC) [Entitic vol] 93.1 fL Normal 80.0-100.0 [facility] Comment on above: Order Comment: Speci men Type: BLOOD SPECIMENOrdering Facility: [facility] Address: [address] [place] [address] Performed By: #### 5 7021-8 ####[facility] LABCL[facility] [id number] [place] [address] [place] Monocytes (Bld) [#/Vol] 0.84 10*3/uL Normal <0.87 [facility] Comment on above: Order Comment: Speci men Type: BLOOD SPECIMENOrdering Facility: [facility] Address: [address] [place] [address] Performed By: #### 5 7021-8 ####[facility] LABCLIA [id number] [place] [address] [facility] Monocytes/100 WBC (Bld) 11.0 % Normal [facility] Comment on above: Order Comment: Speci men Type: BLOOD SPECIMENOrdering Facility: [facility] Address: [address] [place] [address] Performed By: #### 5 7021-8 ####[facility] LABCLIA [id number] [place] [address] [place] Neutrophils (Bld) [#/Vol] 5.18 10*3/uL Normal 1.45-7.50 [facility] Comment on above: Order Comment: Speci men Type: BLOOD SPECIMENOrdering Facility: [facility] Address: [address] [place] [address] Performed By: #### 5 7021-8 ####[facility] LABCLIA [id number] [place] [address] [place] Neutrophils/100 WBC (Bld) 67.7 % Normal [facility] Comment on above: Order Comment: Speci men Type: BLOOD SPECIMENOrdering Facility: [facility] Address: [address] [place] [address] Performed By: #### 5 7021-8 ####[facility] LABCLIA [id number] [facility] [place] [address] [place] Nucleated RBC (Bld) [#/Vol] Normal [facility] Comment on above: Order Comment: Speci men Type: BLOOD SPECIMENOrdering Facility: [facility] Address: [address] [place] [address] Performed By: #### 5 7021-8 ####[facility] LABCLIA [id number] [place] [address] [place] Nucleated RBC/100 WBC (Bld) [Ratio] Normal [facility] Comment on above: Order Comment: Speci men Type: BLOOD SPECIMENOrdering Facility: [facility] Address: [address] [place] [address] Performed By: #### 5 7021-8 ####[facility] LABCLIA [id number] [facility] [place] [address] [place] Platelet mean volume (Bld) [Entitic vol] 10.8 fL Normal 9.0-12.7 [facility] Comment on above: Order Comment: Speci men Type: BLOOD SPECIMENOrdering Facility: [facility] Address: [address] [place] [address] Performed By: #### 5 7021-8 ####[facility] LABCLIA [id number] [place] [address] [facility] Platelets (Bld) [#/Vol] 223 10*3/uL Normal 150-400 [facility] Comment on above: Order Comment: Speci men Type: BLOOD SPECIMENOrdering Facility: [facility] Address: [address] [place] [address] Performed By: #### 5 7021-8 ####[facility] LABCLIA [id number] [place] [address] [facility] RBC (Bld) [#/Vol] 4.62 10*6/uL Normal 3.90-5.20 [facility] Comment on above: Order Comment: Speci men Type: BLOOD SPECIMENOrdering Facility: [facility] Address: [address] [place] [address] Performed By: #### 5 7021-8 ####[facility] LABCLIA [id number] [place] [address] [facility] WBC (Bld) [#/Vol] 7.65 10*3/uL Normal 3.70-11.00 [facility] Comment on above: Order Comment: Speci men Type: BLOOD SPECIMENOrdering Facility: [facility] Address: [address] [place] [address] Performed By: #### 5 7021-8 ####[facility] LABCLIA [id number] [place] [address] [facility] CNTHERAPYon 11-25-2023 CNTHERAPY OT/PT/Speech Visit ( LDPT) MICHAEL MEIER ([id number]) 1940 F Date Time Provider Department 11/25/23 8:30 AM SARAH MERCHANT LDPT Date Time Provider Department Center 11/25/2023 8:30 AM [id number], SARAH LDPT [facility] Reason for Visit: Physical Therapy [503] [...] 1 tablet by mouth once daily. Normal [facility] Comprehensive metabolic 2000 panelon 11-25-2023 Albumin [Mass/Vol] 4.3 g/dL Normal 3.9-4.9 [facility] Comment on above: Order Comment: Lori mosqueda Type: BLOOD SPECIMEN [facility] Address: [address] [place] [address] Performed By: #### 2 4323-8, 10664-4, 3 #### [facility] [facility] CLIA [id number] [address] [place] [address] STATES OF [facility] ALP [Catalytic activity/Vol] 97 U/L Normal 34-123 [facility] Comment on above: Order Comment: Lori mosqueda Type: BLOOD SPECIMEN Ordering Facility: [facility] Address: [address] [place] [address] Performed By: #### 2 4323-8, 19712-3, 3016-3 #### [facility] [place] [facility] CLIA [id number] [address] [facility] [place] [address] [place] ALT With P-5'-P [Catalytic activity/Vol] 23 U/L Normal 7-38 [facility] Comment on above: Order Comment: Speci men Type: BLOOD SPECIMEN Ordering Facility: [facility] Address: [address] [place] [address] Performed By: #### 2 4323-8, 23912-8, 6-3 #### [facility] [place] [facility] CLIA [id number] [address] [place] [address] [place] Anion gap [Moles/Vol] 14 mmol/L Normal 8-15 [facility] Comment on above: Order Comment: Speci men Type: BLOOD SPECIMEN Ordering Facility: [facility] Address: [address] [place] [address] Performed By: #### 2 4323-8, 90076-9, 3015-3 #### [facility] [place] [facility] CLIA [id number] [address] [place] [address] [place] AST With P-5'-P [Catalytic activity/Vol] 25 U/L Normal 13-35 [facility] Comment on above: Order Comment: Speci men Type: BLOOD SPECIMEN Ordering Facility: [facility] Address: [address] [place] [address] Performed By: #### 2 4323-8, 26785-5, 3015-3 #### [facility] [place] [facility] CLIA [id number] [address] [place] [address] [place] Bilirubin [Mass/Vol] 0.7 mg/dL Normal 0.2-1.3 [facility] Comment on above: Order Comment: Speci men Type: BLOOD SPECIMEN Ordering Facility: [facility] Address: [address] [place] [address] Performed By: #### 2 4323-8, 61503-3, 6-3 #### [facility] [place] [facility] CLIA [id number] [address] [place] [address] [place] Calcium [Mass/Vol] 9.3 mg/dL Normal 8.5-10.2 [facility] Comment on above: Order Comment: Speci men Type: BLOOD SPECIMEN Ordering Facility: [facility] Address: [address] [place] [address] Performed By: #### 2 4323-8, 13936-8, 3016-3 #### [facility] [place] [facility] CLIA [id number] [address] [place] [address] [place] Chloride [Moles/Vol] 102 mmol/L Normal 98-107 [facility] Comment on above: Order Comment: Speci men Type: BLOOD SPECIMEN Ordering Facility: [facility] Address: [address] [place] [address] Performed By: #### 2 4323-8, 54218-0, 3015-3 #### [facility] [place] [facility] CLIA [id number] [address] [place] [address] [place] CO2 [Moles/Vol] 26 mmol/L Normal 22-30 [facility] Comment on above: Order Comment: Speci men Type: BLOOD SPECIMEN Ordering Facility: [facility] Address: [address] [place] [address] Performed By: #### 2 4323-8, 62768-6, 3015-3 #### [facility] [place] [facility] CLIA [id number] [address] [place] [address] [place] Creatinine [Mass/Vol] 0.64 mg/dL Normal 0.58-0.96 [facility] Comment on above: Order Comment: Speci men Type: BLOOD SPECIMEN Ordering Facility: [facility] Address: [address] [place], [place] [address] Performed By: #### 2 4323-8, 70320-9, 6-3 #### [facility] [place] [facility] CLIA [id number] [address] [place] [address] [place] Creatinine and Glomerular filtration rate.predicted panel (S/P/Bld) 88 mL/min/1.73m??? Normal >=60 [facility] Comment on above: Order Comment: Lori mosqueda Type: BLOOD SPECIMEN Ordering Facility: [facility] Address: [address] [id number] Result Comment: Bina mated Glomerular Filtration Rate [...] actual GFR. Performed By: #### 2 4323-8, 69629-8, 6-3 #### [facility] CLIA [id number] [address] [place] [address] [place] Glucose [Mass/Vol] 99 mg/dL Normal 74-99 [facility] Comment on above: Order Comment: Lori mosqueda Type: BLOOD SPECIMEN Ordering Facility: [facility] Address: [address] [place] [address] Result Comment: The [place] Diabetes Association (ADA) provides guidance for cutoff [...] Standards of Medical Care in Diabetes 2016, [place] Diabetes Association. Diabetes Care. 2016.39(Suppl 1). Performed By: #### 2 4323-8, 47399-1, 3 #### [facility] CLIA [id number] [address] [place] [address] [place] Potassium [Moles/Vol] 3.8 mmol/L Normal 3.7-5.1 [facility] Comment on above: Order Comment: Lori mosqueda Type: BLOOD SPECIMEN Ordering Facility: [facility] Address: [address] [id number] Performed By: #### 2 4323-8, 79025-1, 3016-3 #### [facility] [place] [facility] CLIA [id number] [address] [place] [address] [place] Protein [Mass/Vol] 6.8 g/dL Normal 6.3-8.0 [facility] Comment on above: Order Comment: Speci men Type: BLOOD SPECIMEN Ordering Facility: [facility] Address: [address] [place] [address] Performed By: #### 2 4323-8, 60686-6, 3016-3 #### [facility] [place] [facility] CLIA [id number] [address] [place] [address] [place] Sodium [Moles/Vol] 142 mmol/L Normal 136-144 [facility] Comment on above: Order Comment: Speci men Type: BLOOD SPECIMEN Ordering Facility: [facility] Address: [address] [place] [address] Performed By: #### 2 4323-8, 72978-1, 3016-3 #### [facility] [place] [facility] CLIA [id number] [address] [place] [address] [place] Urea nitrogen [Mass/Vol] 10 mg/dL Normal 7-21 [facility] Comment on above: Order Comment: Speci men Type: BLOOD SPECIMEN Ordering Facility: [facility] Address: [address] [place] [address] Performed By: #### 2 4323-8, 38513-8, 3016-3 #### [facility] [place] [facility] CLIA [id number] [address] [place] [address] [place] HbA1c (Bld)on 11-25-2023 Average glucose Estimated from glycated hemoglobin (Bld) [Mass/Vol] 97 mg/dL Normal [facility] Comment on above: Order Comment: Speci men Type: BLOOD SPECIMENOrdering Facility: [facility] Address: [address] [place] [address] Result Comment: eAG: (Estimated average glucose) is a calculated value from HgbA1c and is outside sales representative insurance of the average blood glucose level in the last 2-3 month period. Performed By: #### 5 5454-3 ####[facility] [id number] [place] [address] [place] HbA1c (Bld) [Mass fraction] 5.0 % Normal 4.3-5.6 [facility] Comment on above: Order Comment: Lori mosqueda Type: BLOOD SPECIMENOrdering Facility: [facility] Address: [address] [place] [address] Result Comment: [place] Diabetes Association guidelines indicate that patients with HgbA1c in the range 5.7-6.4% are at increased risk for development of diabetes, and intervention by lifestyle modification may be beneficial. HgbA1c greater or equal to 6.5% is considered diagnostic of diabetes. Performed By: #### 5 5454-3 ####[facility] [id number] [place] [address] [place] Lipid 1996 panelon 4 Cholesterol [Mass/Vol] 159 mg/dL Normal <200 [facility] Comment on above: Order Comment: Lori mosqueda Type: BLOOD SPECIMEN Ordering Facility: [facility] Address: [address] [place] [address] Result Comment: <200 mg/dL, Desirable 200-239 mg/dL, Borderline high >239 mg/dL, High Performed By: #### 2 4323-8, 69079-5, 3015-3 #### [facility] CLIA [id number] [address] [place] [address] STATES OF [facility] Cholesterol in HDL [Mass/Vol] 74 mg/dL Normal >39 [facility] Comment on above: Order Comment: Lori mosqueda Type: BLOOD SPECIMEN Ordering Facility: [facility] Address: [address] [place] [address] Result Comment: 40-5 9 mg/dL, Acceptable >59 mg/dL, High: Negative risk factor for coronary heart disease <40 mg/dL, Low: Positive risk factor for coronary heart disease Performed By: #### 2 4323-8, 96201-2, 3 #### [facility] [place] [facility] CLIA [id number] [address] [place] [address] [place] OF [facility] Cholesterol in LDL [Mass/Vol] 54 mg/dL Normal <100 [facility] Comment on above: Order Comment: Lori jaylin Type: BLOOD SPECIMEN Ordering Facility: [facility] Address: [address] [place] [address] Result Comment: <100 mg/dL, Optimal 100-129 mg/dL, Near optimal/above optimal 130-159 mg/dL, Borderline high 160-189 mg/dL, High >189 mg/dL, Very high Secondary prevention optimal LDL Cholesterol levels are recommended to be < 70 mg/dL Performed By: #### 2 4323-8, 30123-3, 3015-07 #### [facility] [place] [facility] CLIA [id number] [address] [place] [address] [facility] OF [facility] Cholesterol in LDL/Cholesterol in HDL [Mass ratio] 0.73 {ratio} Normal <2.54 [facility] Comment on above: Order Comment: Speci men Type: BLOOD SPECIMEN Ordering Facility: [facility] Address: [address] [place] [address] Result Comment: Jose Maria michele: 1. National Cholesterol Education Program ATP III Guideline At-A-Glance Quick Desk Reference: National Heart, Lung, and Blood [place]. National Institutes of Health. 2001: NIH Publication No. 01-3305. 2. An International Atherosclerosis Society position paper: global recommendations for the management of dyslipidemia: executive summary, Atherosclerosis. 2014: 232(2):410-413. Performed By: #### 2 4323-8, 25032-2, 3015-07 #### [facility] [place] [facility] CLIA [id number] [address] [place] [address] [place] [facility] Cholesterol in VLDL [Mass/Vol] 31 mg/dL High <30 [facility] Comment on above: Order Comment: Octaviamarii mosqueda Type: BLOOD SPECIMEN Ordering Facility: [facility] Address: [address] [place] [address] Performed By: #### 2 4323-8, 79135-0, 3 #### [facility] [place] [facility] CLIA [id number] [address] [place] [address] [place] Cholesterol non HDL [Mass/Vol] 85 mg/dL Normal <130 [facility] Comment on above: Order Comment: Speci men Type: BLOOD SPECIMEN Ordering Facility: [facility] Address: [address] [place] [address] Result Comment: <130 mg/dL, Optimal 130-159 mg/dL, Near optimal/above optimal 160-189 mg/dL, Borderline high 190-219 mg/dL, High >219 mg/dL, Very high Secondary prevention optimal non HDL Cholesterol levels are recommended to be <100 mg/dL Performed By: #### 2 4323-8, 81381-6, 3016-3 #### [facility] [place] [facility] CLIA [id number] [address] [place] [address] [facility] OF [facility] Cholesterol.total/Chol esterol in HDL [Mass ratio] 2.15 {ratio} Normal <5.10 [facility] Comment on above: Order Comment: Speci men Type: BLOOD SPECIMEN Ordering Facility: [facility] Address: [address] [place] [address] Performed By: #### 2 4323-8, 76616-6, 3016-3 #### [facility] [place] [facility] CLIA [id number] [address] [place] [address] [place] OF [place] FASTING TIME 12 hrs Normal [facility] Comment on above: Order Comment: Speci men Type: BLOOD SPECIMEN Ordering Facility: [facility] Address: [address] [place] [address] Performed By: #### 2 4323-8, 80555-9, 3016-3 #### [facility] [place] [facility] CLIA [id number] [address] [place] [address] [facility] Triglyceride [Mass/Vol] 153 mg/dL High <150 [facility] Comment on above: Order Comment: Speci men Type: BLOOD SPECIMEN Ordering Facility: [facility] Address: [address] [place] [address] Result Comment: <150 mg/dL, Normal 150-199 mg/dL, Borderline high 200-499 mg/dL, High >499 mg/dL, Very high Performed By: #### 2 4323-8, 86496-5, 3016-3 #### [facility] CLIA [id number] [address] [place] [address] [place] T3 SerPl-mCncon 11-25-2023 T3 [Mass/Vol] 99 ng/dL Normal 79-165 [facility] Comment on above: Order Comment: Speci men Type: BLOOD SPECIMENOrdering Facility: [facility] Address: [address] [place] [address] Performed By: #### 3 024-7, 3053-6 ####[facility] [id number] [address] T4 Free SerPl-mCncon 024 Free T4 [Mass/Vol] 1.6 ng/dL Normal 0.9-1.7 [facility] Comment on above: Order Comment: Speci men Type: BLOOD SPECIMENOrdering Facility: [facility] Address: [address] [place] [address] Performed By: #### 3 024-7, 305-6 ####[facility] [id number] [address] OF [facility] TSH SerPl-aCncon 11-25-2023 TSH Qn 4.510 m[IU]/L High 0.270-4.20 0 [facility] Comment on above: Order Comment: Speci men Type: BLOOD SPECIMENOrdering Facility: [facility] Address: [address] [place] [address] Performed By: #### 2 4323-8, 06839-3, 3016-3 ####[facility] [id number] [address] OF [facility] CNTHERAPYon 11-23-2023 CNTHERAPY OT/PT/Speech Visit ( LDPT) HARDEEPMICHAEL ([id number]) 1940 F Date Time Provider Department 11/23/23 2:15 PM SARAH MERCHANT Date Time Provider Department Center 11/23/2023 2:15 PM [id number] MERCHANT [facility] Reason for Visit: Physical Therapy [503] [...] 1 tablet by mouth once daily. Normal [facility] [id number] 11-15-2023 [id number] O ID: [id number] Author: SARAH MERCHANT PT Service: ? Author Type: Physical Therapist Type: [id number] Filed: 11/15/2023 18:46 Note Text: [facility] Rehabilitation [facility] Sports Therapy Physical Therapy Plan of Care Certification Patient Name: Michael Meier : 1940 [facility] #: [id number] Date: 11/15/2023 To: Geeta Cadet,* From Therapist: [...] of Care: created on 11/15/23 through 01/14/24 [place] in home exercise program. Patient will demonstrate [...] Planned: 15 Planned Treatment Interventions: Therapeutic exercise (36509), Neuromuscular re-education (69899), Therapeutic activities (03992), Self-usp management (07393), Gait Training (37265), Patient/Family/Caregiver Education, General Conditioning PLAN FOR NEXT [...] reviewed the treatment plan for Michael Meier, [facility]# [id number] for the period of 11/15/23 -- 01/14/24, established on 11/15/2023. Signature certifies the need for therapy services. Normal [facility] CNTHERAPYon 11-15-2023 CNTHERAPY OT/PT/Speech Visit ( LDPT) MICHAEL MEIER ([id number]) 1940 F Date Time Provider Department 11/15/23 4:30 PM SARAH MERCHANT LDFRANTZ Date Time Provider Department Center 11/15/2023 4:30 PM [id number], CARLA LDPT [facility] Reason for Visit: PT Eval [747] [...] by mouth once daily. Letter Text Normal [facility] XR CHEST 2V FRONTAL/LATon [facility] EGD DIAGNOSTICon 01-08-2022 [facility] GLUCOSE, BLOOD (POC)on 10-20 Glucose [Mass/Vol] 116 mg/dL Abnormal 74 - 99 mg/dL [facility] UA DIP, URINE (POC)on 2021 BILIRUBIN UA (POCT) Negative Negative [facility] CLARITY UA (POCT) Clear [facility] COLOR UA (POCT) [place] [facility] GLUCOSE UA (POCT) 100 mg/dL Abnormal Negative mg/dL [facility] HEMOGLOBIN/BLOOD UA (POCT) Large Abnormal Negative [facility] KETONE UA (POCT) Trace Negative mg/dL [facility] LEUKOCYTES UA (POCT) Large Abnormal Negative [facility] NITRITE UA (POCT) Positive Abnormal Negative [facility] PH UA (POCT) 5.0 4.5 - 8.0 [facility] Protein Ql (U) 100 mg/dL Abnormal Negative mg/dL [facility] SPECIFIC GRAVITY UA (POCT) <=1.005 Abnormal 1.005 - 1.030 [facility] UROBILINOGEN UA (POCT) 4.0 E.U./dL Abnormal Eli l E.U./dL [facility] Basophil percentageon 2021 Chloride [Moles/Vol] 100 mmol/L 98-107 [facility] Work Phone: Glucose [Mass/Vol] 92 mg/dL 74-106 [facility] Work Phone: Potassium [Moles/Vol] 3.8 mmol/L 3.5-5.1 [facility] Work Phone: Comment on above: Slight Hemolysis, Re sult may be falsely increased. Sodium [Moles/Vol] 135 mmol/L 136-145 [facility] Work Phone: Laboratory - Chemistry and C hemistry - challengeon 09-10-2021 CO2 [Moles/Vol] 30.0 mmol/L 21.0-32.0 [facility] Work Phone: Urea nitrogen/Creatinine [Mass ratio] 19.7 mg/mg 10-20 [facility] Work Phone: No Panel Informationon 09-10 Estimated GFR (MDRD) Amer 82 mL/min >60 [facility] Work Phone: Comment on above: GFR Calc Estimated GFR (MDRD) Non-Af Amer 67 mL/min >60 [facility] Work Phone: Comment on above: Non- GFR Calc Serum or plasma calcium julee urement (mass/volume)on 09-10-2021 Calcium [Mass/Vol] 8.8 mg/dL 8.5-10.1 [facility] Work Phone: Serum or plasma creatinine m easurement (mass/volume)on 09-10-2021 Creatinine [Mass/Vol] 0.86 mg/dL 0.55-1.02 [facility] Work Phone: Comment on above: The validity of the calculated GFR & GFRAA in patients over 70 years has not been determined. Clinical correlation is essential. Serum or plasma urea nitroge n measurement (mass/volume)on 09-10-2021 Urea nitrogen [Mass/Vol] 17 mg/dL 7-18 [facility] Work Phone: Thin prep Papanicolaou smear with manual screeningon 09-10-2021 Thin prep Papanicolaou smear with manual screening 5 5-15 [facility] Work Phone: Basophil percentageon 2021 Basophil percentage 0 SEEN /hpf [facility] Work Phone: Chloride [Moles/Vol] 103 mmol/L 98-107 [facility] Work Phone: Glucose [Mass/Vol] 88 mg/dL 74-106 [facility] Work Phone: [phone] Potassium [Moles/Vol] 3.7 mmol/L 3.5-5.1 [facility] Work Phone: [phone] Sodium [Moles/Vol] 138 mmol/L 136-145 [facility] Work Phone: [phone] WBC (Bld) [#/Vol] 7.3 10*3/uL 4.4-11.0 [facility] Work Phone: [phone] Bilirubin Test strip Ql (U)o n 06-02-2021 Bilirubin Ql (U) Negative Negative [facility] Work Phone: [phone] Blood erythrocytes count (nu mber/volume)on 06-02-2021 RBC (Bld) [#/Vol] 4.57 10*6/uL 4.2-5.4 [facility] Work [facility]: [phone] Blood hemoglobin measurement (mass/volume)on 06-02-2021 Hemoglobin (Bld) [Mass/Vol] 13.5 g/dL 12.0-15.0 [facility] Work Phone: [phone] Blood platelet mean volumeon 06-02-2021 Platelet mean volume (Bld) [Entitic vol] 10.3 fL 6.2-12.0 [facility] Work Phone: [phone] Determination of erythrocyte mean corpuscular volume (MCV)on 06-02-2021 MCV (RBC) [Entitic vol] 88.8 fL 81-99 [facility] Work Phone: Hematocrit Auto (Bld) [Volum e fraction]on 06-02-2021 Hematocrit (Bld) [Volume fraction] 40.6 % 37-47 [facility] Work Phone: [phone] INR in Blood by Coagulation assayon 06-02-2021 INR Coag (Bld) [Relative time] 1.1 {INR} [facility] Work Phone: Ketones Test strip Ql (U)on 06-02-2021 Ketones Ql (U) Negative Negative [facility] Work Phone: [phone] Laboratory - Chemistry and C hemistry - challengeon 06-02-2021 CO2 [Moles/Vol] 30.0 mmol/L 21.0-32.0 [facility] Work Phone: Urea nitrogen/Creatinine [Mass ratio] 18.6 mg/mg 10-20 [facility] Work Phone: Laboratory - Coagulationon 0 06-02-2021 PT Coag (PPP) [Time] 13.1 s 11.7-14.9 [facility] Work Phone: Laboratory - Hematology and Cell countson 06-02-2021 Erythrocyte distribution width (RBC) [Entitic vol] 45.3 fL 35.1-43.9 [facility] Work Phone: Erythrocyte distribution width (RBC) [Ratio] 13.9 % 11.6-14.6 [facility] Work Phone: MCH (RBC) [Entitic mass] 29.5 pg 27.0-32.0 [facility] Work Phone: MCHC Auto (RBC) [Mass/Vol]on 06-02-2021 MCHC (RBC) [Mass/Vol] 33.3 g/dL 32-36 [facility] Work Phone: Mucus LM Ql (Urine sed)on Mucus Ql (Urine sed) 0 SEEN /hpf [facility] Work Phone: Nitrite Test strip Ql (U)on 06-02-2021 Nitrite Ql (U) Negative Negative [facility] Work Phone: No Panel Informationon 06-02 Estimated GFR (MDRD) Amer 104 mL/min >60 [facility] Work Phone: Comment on above: GFR Calc Estimated GFR (MDRD) Non-Af Amer 86 mL/min >60 [facility] Work Phone: Comment on above: Non- GFR Calc Thyroid Stimulating Hormone (TSH) 1.91 uIU/mL 0.358-3.74 [facility] Work Phone: Platelets bldon 06-02-2021 Platelets (Bld) [#/Vol] 240 10*3/uL 150-450 [facility] Work Phone: Protein Test strip Ql (U)on 06-02-2021 Protein Ql (U) 15 mg/dl Negative [facility] Work Phone: Serum or plasma calcium julee urement (mass/volume)on 06-02-2021 Calcium [Mass/Vol] 8.6 mg/dL 8.5-10.1 [facility] Work Phone: Serum or plasma creatinine m easurement (mass/volume)on 06-02-2021 Creatinine [Mass/Vol] 0.70 mg/dL 0.55-1.02 [facility] Work Phone: Comment on above: The validity of the calculated GFR & GFRAA in patients over 70 years has not been determined. Clinical correlation is essential. Serum or plasma urea nitroge n measurement (mass/volume)on 06-02-2021 Urea nitrogen [Mass/Vol] 13 mg/dL 7-18 [facility] Work Phone: Squamous epithelial cells de tection in urine sediment by light microscopyon 06-02-2021 Epithelial cells.squamous LM Ql (Urine sed) 0 SEEN /hpf [facility] Work Phone: Thin prep Papanicolaou smear with manual screeningon 06-02-2021 Thin prep Papanicolaou smear with manual screening 5 5-15 [facility] Work Phone: Urine blood detectionon - RBC Ql (U) Negative Negative [facility] Work Phone: RBC Ql (U) 0 SEEN /hpf [facility] Work Phone: Urine clarityon 06-02-2021 Clarity (U) Sl. Cloudy Clear [facility] Work Phone: Urine color determinationon 06-02-2021 Color (U) Yellow Yellow [facility] Work Phone: Urine glucose detectionon Glucose Ql (U) Normal mg/dl Normal [facility] Work Phone: Urine leukocyte esterase det ection by dipstickon 06-02-2021 Leukocyte esterase Test strip Ql (U) 25 /ul Negative [facility] Work Phone: [phone] Urine pHon 06-02-2021 pH (U) 6.5 [pH] [facility] Work Phone: Urine sediment bacteria coun t by microscopy (number/high power field)on 06-02-2021 Bacteria LM.HPF (Urine sed) [#/Area] 1 /[HPF] None Seen [facility] Work Phone: Urine specific gravity measu rementon 06-02-2021 Specific gravity (U) [Rel density] 1.015 [facility] Work Phone: Urobilinogen Auto test strip Ql (U)on 06-02-2021 Urobilinogen Ql (U) Normal mg/dl Normal [facility] Work Phone: BASIC METABOLIC PANELon 08-2 Anion gap [Moles/Vol] 8 mmol/L Low 10 - 20 [facility] Comment on above: Performed By: #### B MP #### [address] [address] Calcium [Mass/Vol] 8.4 mg/dL Low 8.6 - 10.3 [facility] Comment on above: Performed By: #### B MP #### [address] [address] Chloride [Moles/Vol] 104 mmol/L Normal 98 - 107 [facility] Comment on above: Performed By: #### B MP #### [address] [address] Creatinine [Mass/Vol] 0.50 mg/dL Normal 0.50 - 1.05 [facility] Comment on above: Performed By: #### B MP #### [address] [address] GFR- AM. >60 Normal >60 [facility] Comment on above: Result Comment: CALC ULATIONS OF ESTIMATED GFR ARE PERFORMED USING THE MDRD STUDY EQUATION FOR THE IDMS-TRACEABLE CREATININE METHODS. CLIN CHEM 2007;53:766-72 Performed By: #### B MP #### [address] [address] GFR-NON AM. >60 Normal >60 [facility] Comment on above: Performed By: #### B MP #### [address] [address] Glucose [Mass/Vol] 90 mg/dL Normal 74 - 99 [facility] Comment on above: Performed By: #### B MP #### [address] [address] HCO3 (Bld) [Moles/Vol] 31 mmol/L Normal 21 - 32 [facility] Comment on above: Performed By: #### B MP #### [address] [address] Potassium [Moles/Vol] 3.8 mmol/L Normal 3.5 - 5.3 [facility] Comment on above: Performed By: #### B MP #### [address] [address] Sodium [Moles/Vol] 139 mmol/L Normal 136 - 145 [facility] Comment on above: Performed By: #### B MP #### [address] [address] Urea nitrogen [Mass/Vol] 10 mg/dL Normal 6 - 23 [facility] Comment on above: Performed By: #### B MP #### [address] [address] BNPon 12-21-2020 Natriuretic peptide B (Bld) [Mass/Vol] 212 pg/mL High 0 - 99 [facility] Comment on above: Result Comment: . <1 00 pg/mL - Heart failure unlikely 100-299 pg/mL - Intermediate probability of acute heart . failure exacerbation. Correlate with clinical . context and patient history. >=300 pg/mL - Heart Failure likely. Correlate with clinical . context and patient history. BNP testing is performed using different testing methodology at [facility]. Direct result comparisons should only be made within the same method. Performed By: #### B NP2 #### [address] [address] CBC AND DIFFERENTIALon 12-21 Basophils (Bld) [#/Vol] 0.00 10*3/uL Normal 0.00 - 0.10 [facility] Comment on above: Performed By: #### C BCDF #### [address] [address] Basophils/100 WBC (Bld) 0.9 % Normal 0.0 - 2.0 [facility] Comment on above: Performed By: #### C BCDF #### [address] [address] Eosinophils (Bld) [#/Vol] 0.10 10*3/uL Normal 0.00 - 0.40 [facility] Comment on above: Performed By: #### C BCDF #### [address] [address] Eosinophils/100 WBC (Bld) 2.5 % Normal 0.0 - 6.0 [facility] Comment on above: Performed By: #### C BCDF #### [address] [address] Erythrocyte distribution width (RBC) [Ratio] 15.3 % High 11.5 - 14.5 [facility] Comment on above: Performed By: #### C BCDF #### [address] [address] Hematocrit (Bld) [Volume fraction] 38.9 % Normal 36.0 - 46.0 [facility] Comment on above: Performed By: #### C BCDF #### [address] [address] Hemoglobin (Bld) [Mass/Vol] 12.8 g/dL Normal 12.0 - 16.0 [facility] Comment on above: Performed By: #### C BCDF #### [address] [address] Lymphocytes (Bld) [#/Vol] 0.70 10*3/uL Low 0.80 - 3.00 [facility] Comment on above: Performed By: #### C BCDF #### [address] [address] Lymphocytes/100 WBC (Bld) 13.3 % Normal 13.0 - 44.0 [facility] Comment on above: Performed By: #### C BCDF #### [address] [address] MCHC (RBC) [Mass/Vol] 33.0 g/dL Normal 32.0 - 36.0 [facility] Comment on above: Performed By: #### C BCDF #### [address] [address] MCV (RBC) [Entitic vol] 88 fL Normal 80 - 100 [facility] Comment on above: Performed By: #### C BCDF #### [address] [address] Monocytes (Bld) [#/Vol] 0.60 10*3/uL Normal 0.05 - 0.80 [facility] Comment on above: Performed By: #### C BCDF #### [address] [address] Monocytes/100 WBC (Bld) 11.5 % Normal 2.0 - 10.0 [facility] Comment on above: Performed By: #### C BCDF #### [address] [address] Neutrophils (Bld) [#/Vol] 3.80 10*3/uL Normal 1.60 - 5.50 [facility] Comment on above: Result Comment: Perc ent differential counts (%) should be interpreted in the context of the absolute cell counts (cells/L). Performed By: #### C BCDF #### [address] [address] Neutrophils/100 WBC (Bld) 71.8 % Normal 40.0 - 80.0 [facility] Comment on above: Performed By: #### C BCDF #### [address] [address] NUCLEATED RBC 0.2 /100 WBC Normal [facility] Comment on above: Performed By: #### C BCDF #### [address] [address] Platelets (Bld) [#/Vol] 160 10*3/uL Normal 150 - 450 [facility] Comment on above: Performed By: #### C BCDF #### [address] [address] RBC 4.44 x10E12/L Normal 4.00 - 5.20 [facility] Comment on above: Performed By: #### C BCDF #### [address] [address] WBC (Bld) [#/Vol] 5.3 10*3/uL Normal 4.4 - 11.3 [facility] Comment on above: Performed By: #### C BCDF #### [address] [address] CHEST 1 VIEWon 12-21-2020 CHEST 1 VIEW Patient Name: MICHAEL MEIER STUDY: CHEST 1 VIEW; 12/21/2020 3:49 pm INDICATION: SOB. COMPARISON: None. ACCESSION NUMBER(S): [id number] ORDERING CLINICIAN: BERNIE BARAJAS FINDINGS: CARDIOMEDIASTINAL SILHOUETTE: [...] Electronically signed by: TIFF FELDMAN MD Normal [facility] CORONAVIRUS 2019 BY PCRon SARS-CoV-2 (COVID-19) RNA DUSTIN+probe Ql (Unsp spec) Not detected Normal Not Detected [facility] Comment on above: Result Comment: . This test has received FDA Emergency Use Authorization (EUA) and has been verified by [facility]. This test is only authorized for the duration of time that circumstances exist to justify the authorization of the emergency use of in vitro diagnostic tests for the detection of SARS-CoV-2 virus and/or diagnosis of COVID-19 infection under section 564(b)(1) of the Act, 21 U.S.C. 360bbb-3(b)(1), unless the authorization is terminated or revoked sooner. [facility] is certified under CLIA-88 as qualified to perform high complexity testing. Testing is performed in the [facility] laboratory located at [address] [place] [address]. SARS-CoV-2/Flu/RSV Multiplex Test: Fact sheet for providers: https://www.fda.gov/media/518237/download Fact sheet for patients: https://www.fda.gov/media/328246/download Performed By: #### C OV19 ####[place] [address] DATE OF SYMPTOM ONSET [[id number]]? [id number] [facility] Comment on above: Performed By: #### C OV19 ####[place] [address] Lab Specimen Source Nasal, Nasopharyngeal [facility] Comment on above: Performed By: #### C OV19 ####[place] [address] Covid 19 Resultson 1 SARS-CoV-2 (COVID-19) RNA [...] You may also be contacted by the [place] Department of Health to see if any [...] or Naproxen (Aleve) can also be used. Hppd-ztt-ybttuuo cough and cold medicines can be used according to the instructions on the package. Some niql-iio-phnqpvn medicines also contain acetaminophen. Make sure you [...] water are not available, use alcohol-based hand awning frame maker. Avoid touching your eyes, nose, and mouth [...] 24 flakito (more content not included)... Normal [facility] Narrative Note - Outpatiento n 12-21-2020 Narrative Note - Outpatient Narrative Note: Description Patient presented to the clinic today for evaluation of cough, wheezing/shortness of breath, chest discomfort, and known exposure to COVID-19. Visibly dyspneic upon initial presentation to the front end technician; SpO2 checked and was 94%. In light of symptoms (and as we do not have nebulizer treatments available in this urgent care), advised would be best to seek care at the ER [facility]. Patient verbalized understanding and agreed; no questions/concerns verbalized. Declined offer for emergency transport. Electronic Signatures: Kat Gleason (METAL BONDING WORKER-GERICARE AIDE) (Signed 21-Dec-2020 14:56) Authored: Narrative Note - OP Last Updated: 21-Dec-2020 14:56 by Kat Gleason (METAL BONDING WORKER-GERICARE AIDE) [facility] Provider Note - ED v3on 08- [...] Authorization (EUA) and has been verified by [facility]. This test is only authorized for [...] independently She is placed on a continuous teletypesetter monitor with pulse oximetry monitoring. Old records [...] computer instructions (more content not included)... Normal [facility] Risk Screen - Adult Emergenc yon 12-21-2020 Risk Screen - Adult Emergency Preferred Language: Preferred Language: Preferred Language for Discussing Health Care (patient/designee)Wallisian Advanced Directives: Advance Directive/DNRno Family Violence Adult: Abuse Screen: Are you or have you been threatened or abused physically, emotionally, or sexually by anyoneno Learning Assessment (Patient): Learning Assessment (Patient): Patient is Able to be Assessed for Learningyes Factors Influencing Readiness to Learnacuteness of illness Factors that Impact Ability to Learnnone Devices/Methods Used to Communicatenone Learning Preferencesaudio Cultural Considerationsnone Developmental Considerationsnone Cheondoism Considerationsnone Learning Assessment (Other Learner): Learning Assessment (Other Learner): Other learner availableno Pressure Injury/TB/Substance: Pressure Injury: Pressure Injury Present on Admissionno Do you have a coughyes... Has your cough lasted longer than 2 weeksno Smoking Statusnever smoker Alcohol Usedenies Drug Usedenies Drug 2 Usedenies Admission Risk Screen: Significant IndicatorsComplete CAGE: CAGE: Is this an injured patient at a Trauma Center ([facility]/[place]): no Electronic Signatures: Kimberlee Albarran (GLYNN) (Signed 21-Dec-2020 15:07) Authored: Preferred Language, Advanced Directives, Family Violence Adult, Learning Assessment (Patient), Learning Assessment (Other Learner), Pressure Injury/TB/Substance, Pressure Injury, CAGE Last Updated: 21-Dec-2020 15:07 by Kimberlee Albarran (RN) Normal [facility] TROPONIN Ion 12-21-2020 Troponin I.cardiac [Mass/Vol] ng/mL Normal 0.00 - 0.03 [facility] Comment on above: Result Comment: LESS THAN [...] is performed using different testing methodology at [facility] than at other [facility]. Direct result comparisons should only be made within the same method. Performed By: #### T ROP2 #### [place] [address] Triage - EDon 12-21-2020 Triage - ED [...] Accompanied By: self Language: Spoken Language Preferred: Wallisian Reading Language Preferred: Wallisian Buffer Machine Requested: no patrol guard was requested MDRO: History of MDRO: no [...] BMI (kg/m2): 35.952 Calculated BSA (m2) 2.12 [place] Coma Scale: Best Eye Response: (E4) spontaneous Best Motor Response: (M6) obeys commands Best Verbal Response: (V5) oriented [place] Score: 15 Cough lasting greater than 3 [...] Updated: 21-Dec-2020 15:06 by Kimberlee Albarran (RN) [facility] Office Visiton 10-22-2016 Documentation of current medications (procedure) Done Invalid Interpretation Code [facility] Work Phone: [phone] Fall risk assessment Yes Invalid Interpretation Code [facility] Work Phone: [phone] 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 Left ventricular Ejection fraction 55 % Invalid Interpretation Code [facility] Work Phone: [phone] Office Visit: [facility] 04-15-20 Dietary management education, guidance, and counseling (procedure) yes Invalid Interpretation Code [facility] Work Phone: [phone] Protein mass conc Done [facility] Work Phone: [phone] Lab Report: Basic Metabolic Profile (BMP)on 05-28-2015 Anion gap 7 mmol/L Invalid Interpretation Code 5-15 [facility] Work Phone: [phone] Anion gap molar conc 7 mmol/L 5-[address] [facility] Work Phone: [phone] Calcium mass conc 8.8 mg/dL Invalid Interpretation Code 8.5-10.1 [facility] Work Phone: [phone] Chloride molar conc 106 mmol/L Invalid Interpretation Code 98-107 [facility] Work Phone: [phone] CO2 32.0 mmol/L Invalid Interpretation Code 21.0-32.0 [facility] Work Phone: [phone] CO2 ppres (BldV) 32.0 mmol/L 21.0-32.0 [facility] Work Phone: [phone] Creatinine mass conc 0.64 mg/dL Invalid Interpretation Code 0.55-1.20 [facility] Work Phone: [phone] eGFR (non-black) 117 mL/min/{1.73_m2} Invalid Interpretation Code >60 [facility] Work Phone: [phone] EST GFR - AA 117 mL/min >60 [facility] Work Phone: [phone] GFR/1.73 sq M predicted among non-blacks MDRD vol rate/area (S/P/Bld) 97 mL/min/{1.73_m2} Invalid Interpretation Code >60 [facility] Work Phone: [phone] Glucose 84 mg/dL Invalid Interpretation Code 70-110 [facility] Work Phone: [phone] Glucose mass conc 84 mg/dL 70-110 [facility] Work Phone: [phone] Potassium molar conc 4.6 mmol/L Invalid Interpretation Code 3.5-5.1 [facility] Work Phone: [phone] Sodium molar conc 145 mmol/L Invalid Interpretation Code 136-145 [facility] Work Phone: [phone] Urea nitrogen mass conc 12 mg/dL Invalid Interpretation Code 7-18 [facility] Work Phone: [phone] Urea nitrogen/Creatinine mass ratio 18.8 RATIO Invalid Interpretation Code 10-20 [facility] Work Phone: [phone] Office Visiton 05-28-2015 General cardiovascular disease 10Y risk [#] [place].D'Agostino 11 % Invalid Interpretation Code [facility] Work Phone: [phone] Tobacco smoking status NHIS Never smoker [facility] Work Phone: [phone] Tobacco use CPHS Never smoker Invalid Interpretation Code [facility] Work Phone: [phone] 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 Cholesterol in HDL mass conc 63 mg/dL Invalid Interpretation Code [facility] Work Phone: [phone] Cholesterol in LDL mass conc 138 mg/dL High [facility] Work Phone: [phone] Cholesterol in LDL/Cholesterol in HDL mass ratio 2.19 Invalid Interpretation Code [facility] Work Phone: [phone] Cholesterol mass conc 227 mg/dL High [facility] Work Phone: [phone] Cholesterol.total/Chol esterol in HDL mass ratio 3.60 {ratio} Invalid Interpretation Code [facility] Work Phone: [phone] Lipoprotein.pre-beta mass conc 26 mg/dL Invalid Interpretation Code [facility] Work Phone: [phone] Thyrotropin Qn 2.560 u[iU]/mL Invalid Interpretation Code [facility] Work Phone: [phone] Triglyceride mass conc 128 mg/dL Invalid Interpretation Code [facility] Work Phone: [phone] Replaced Document: Hyun Crowell CG Observationson 11-22-2014 EKG QRS axis 8 deg [facility] Work Phone: [phone] electrocardiogram interpretation Sinus Rhythm -First degree A-V block Lisa = 246BORDERLINE RHYTHM Invalid Interpretation Code [facility] Work Phone: [phone] GE use only - for [employer] import when terms are not otherwise specified 452 ms Invalid Interpretation Code [facility] Work Phone: [phone] Interpretation Sinus Rhythm -First degree A-V block Lisa = 246BORDERLINE RHYTHM [facility] Work Phone: [phone] P Gravelly -15 deg [facility] Work Phone: [phone] P wave axis, electrocardiogram -15 deg Invalid Interpretation Code [facility] Work Phone: FL Interval 246 ms [facility] Work Phone: FL interval, electrocardiogram 246 ms Invalid Interpretation Code [facility] Work Phone: Pulse (Heart Rate) 60 /min Invalid Interpretation Code [facility] Work Phone: QRS axis, electrocardiogram 8 deg Invalid Interpretation Code [employer] Phone: QRS Duration 106 ms [facility] Work Phone: QRS duration, electrocardiogram 106 ms Invalid Interpretation Code [facility] Work Phone: QT Interval new path ms [facility] Work Phone: QT interval, electrocardiogram new path ms Invalid Interpretation Code [facility] Work Phone: QTc Monahan 452 ms [facility] Work Phone: T Gravelly 21 deg [facility] Work Phone: T wave axis, electrocardiogram 21 deg Invalid Interpretation Code [facility] Work Phone: [phone] Office Visiton 05-25-2014 cardiac risk group B Invalid Interpretation Code [facility] Work Phone: Lab Report: CBCDon 4 Absolute Neutrophil count 5.4 X10 3/UL Normal 2.0-7.7 [facility] Work Phone: ANC 5.4 X10 3/UL Normal 2.0-7.7 [facility] Work Phone: Basophils/100 leukocytes 0.6 % Normal 0-1 [facility] Work Phone: Basophils/100 WBC (Bld) 0.6 % Normal 0-1 [facility] Work Phone: Eosinophils/100 leukocytes 1.4 % Normal 0-5 [facility] Work Phone: Eosinophils/100 WBC (Bld) 1.4 % Normal 0-5 [facility] Work Phone: Erythrocytes (RBC) 4.95 10*6/uL Normal 4.2-5.[address] [facility] [address] [facility] Work Phone: Hematocrit (HCT) 41.6 % Normal 37-47 [facility] Work Phone: Hematocrit Volume Fraction (Bld) 41.6 % Normal 37-47 [facility] Work Phone: Hemoglobin mass conc (Bld) 14.4 g/dL Normal 12.0-15.0 [facility] Work Phone: Lymphocytes/100 leukocytes 23.0 [...] Work Phone: MCV 84.0 fL Normal 81-99 [facility] Work Phone: MCV Entitic volume (RBC) 84.0 fL Normal 81-99 [facility] Work Phone: Monocytes/100 leukocytes 8.0 % Normal 0-10 [facility] Work Phone: Monocytes/100 WBC (Bld) 8.0 % Normal 0-10 [facility] Work Phone: Neutrophils/100 leukocytes 66.9 % Normal 47-70 [facility] Work Phone: Neutrophils/100 WBC (Bld) 66.9 % Normal 47-70 [facility] Work Phone: Platelet mean volume Entitic volume (Bld) 10.7 fL Normal 6.2-12.0 [facility] Work Phone: Platelets 209 10*3/mm3 Normal 150-450 [facility] Work Phone: Platelets #/vol (Bld) 209 10*3/mm3 Normal 150-450 [facility] Work Phone: PMV by [place] 10.7 fL Normal 6.2-12.0 [facility] Work Phone: RBC #/vol (Bld) 4.95 10*6/uL Normal 4.2-5.4 [facility] Work Phone: WBC #/vol (Bld) 8.1 10*3/uL Normal 4.4-11.0 [facility] Work Phone: WBC (Leukocytes) 8.1 10*3/uL Normal 4.4-11.0 [facility] Work Phone: Lab Report: MGon 07-19-2013 Magnesium mass conc 1.9 mg/dL Normal 1.8-2.4 [facility] Work Phone: [phone] Lab Report: T4on 05-18-2012 T4 mass conc 11.9 ug/dL Normal 4.8-13.9 [facility] Work Phone: [phone] Lab Report: PTon 05-06-2011 INR Coag RelTime (PPP) 1.0 {INR} Normal [facility] Work Phone: [phone] INR in blood by coagulation 1.0 {INR} Normal [facility] Work Phone: [phone] prothrombin time, actual/normal, ratio 12.8 SECONDS Normal 11.9-14.4 [facility] Work Phone: [phone] PTP 12.8 SECONDS Normal 11.9-14.4 [facility] Work Phone: [phone] Lab Report: PTTon 05-06-2011 aPTT Coag time (Bld) 26 s Normal 24.1-36.[address] [facility] [address] [facility] Work Phone: [phone] Replaced Document: [employer] E CG Observationson 05-05-2011 Pulse (Heart Rate) 420 ms Invalid Interpretation Code [facility] Work Phone: [phone] Vital Signs Date Time Vital Sign Value Performing Clinician Facility 11-02-2024 09:50-0400 Body height 165.[address] Michael Puga DO Work Phone: [facility] 11-02-2024 09:46-0400 Body mass index (BMI) [Ratio] 39.4 kg/m2 Dr. Michael Puga DO Work Phone: [facility] 11-02-2024 09:46-0400 Body weight 107.[address] Michael Puga DO Work Phone: [facility] 11-02-2024 09:46-0400 Diastolic blood pressure 62 mm[Hg] Dr. Michael Puga DO Work Phone: [facility] 11-02-2024 09:46-0400 Heart rate 59 /min Dr. Michael Puga DO Work Phone: [facility] 11-02-2024 09:46-0400 Respiratory rate 18 /min Dr. Michael Puga DO Work Phone: [facility] 11-02-2024 09:46-0400 Systolic blood pressure 152 mm[Hg] Dr. Michael Puga DO Work Phone: [facility] 10-27-2024 12:00-0400 Diastolic blood pressure 52 mm[Hg] Sarah Merchant PT Work Phone: [facility] 10-27-2024 12:00-0400 Heart rate 63 /min Sarah Merchant PT Work Phone: [facility] 10-27-2024 12:00-0400 SaO2% (BldA) [Mass fraction] 96 % Sarah Merchant PT Work Phone: [facility] 10-27-2024 12:00-0400 Systolic blood pressure 152 mm[Hg] Sarah Merchant PT Work Phone: [facility] 08-30-2024 15:17-0400 Body mass index (BMI) [Ratio] 38.27 kg/m2 Michael Puga DO Work Phone: [facility] 08-30-2024 15:17-0400 Body temperature 97 [degF] Michael Puga DO Work Phone: [facility] 08-30-2024 15:17-0400 Body weight 104.33 kg Michael Puga DO Work Phone: [facility] 08-30-2024 15:17-0400 Diastolic blood pressure 64 mm[Hg] Michael Puga DO Work Phone: [facility] 08-30-2024 15:17-0400 Heart rate 64 /min Michael Puga DO Work Phone: [facility] 08-30-2024 15:17-0400 Respiratory rate 20 /min Michael Puga DO Work Phone: [facility] 08-30-2024 15:17-0400 Systolic blood pressure 148 mm[Hg] Michael Puga DO Work Phone: [facility] 08-17-2024 15:17-0400 Diastolic blood pressure 68 mm[Hg] Asia Connie METAL BONDING WORKER.GERICARE AIDE Work Phone: [facility] 08-17-2024 15:17-0400 Heart rate 61 /min Asia Rosales METAL BONDING WORKER.GERICARE AIDE Work Phone: [facility] 08-17-2024 15:17-0400 SaO2% (BldA) [Mass fraction] 98 % Asia Rosales METAL BONDING WORKER.GERICARE AIDE Work Phone: [facility] 08-17-2024 15:17-0400 Systolic blood pressure 136 mm[Hg] Asia Rosales METAL BONDING WORKER.GERICARE AIDE Work Phone: [facility] 06-21-2024 17:27-0500 Body mass index (BMI) [Ratio] 36.78 kg/m2 Michael Puga DO Work Phone: [facility] 06-21-2024 17:27-0500 Body temperature 97.7 [degF] Michael Puga DO Work Phone: [facility] 06-21-2024 17:27-0500 Body weight 100.25 kg Michael Puga DO Work Phone: [facility] 06-21-2024 17:27-0500 Diastolic blood pressure 70 mm[Hg] Michael Puga DO Work Phone: [facility] 06-21-2024 17:27-0500 Heart rate 64 /min Michael Puga DO Work Phone: [facility] 06-21-2024 17:27-0500 Respiratory rate 20 /min Michael Puga DO Work Phone: [facility] 06-21-2024 17:27-0500 Systolic blood pressure 160 mm[Hg] Michael Puga DO Work Phone: [facility] 06-01-2024 13:20-0500 Body height 165.[address] Michael Puga DO Work Phone: [facility] 06-01-2024 13:20-0500 Body mass index (BMI) [Ratio] 36.6 kg/m2 Dr. Michael Puga DO Work Phone: [facility] 06-01-2024 13:20-0500 Body weight 99.[address] Michael Puga DO Work Phone: [facility] 06-01-2024 13:20-0500 Diastolic blood pressure 73 mm[Hg] Dr. Michael Puga DO Work Phone: [phone] [place] [address] 06-01-2024 13:20-0500 Heart rate 60 /min Dr. Michael Puga DO Work Phone: [phone] [place] [address] 06-01-2024 13:20-0500 Respiratory rate 18 /min Dr. Michael Puga DO Work Phone: [phone] [place] [address] 06-01-2024 13:20-0500 SaO2% (BldA) [Mass fraction] 96 % Dr. Michael Puga DO Work Phone: [phone] [place] [address] 06-01-2024 13:20-0500 Systolic blood pressure 161 mm[Hg] Dr. Michael Puga DO Work Phone: [phone] [place] [address] 05-11-2024 13:05-0500 Body mass index (BMI) [Ratio] 37.01 kg/m2 Keyjayy Portillo METAL BONDING WORKER.GERICARE AIDE Work Phone: [facility] 05-11-2024 13:05-0500 Body weight 100.88 kg Key Portillo METAL BONDING WORKER.GERICARE AIDE Work Phone: [facility] 05-11-2024 13:05-0500 Diastolic blood pressure 58 mm[Hg] Key Portillo METAL BONDING WORKER.GERICARE AIDE Work Phone: [facility] 05-11-2024 13:05-0500 Heart rate 60 /min Key Portillo METAL BONDING WORKER.GERICARE AIDE Work Phone: [facility] 05-11-2024 13:05-0500 SaO2% (BldA) [Mass fraction] 95 % Key Portillo METAL BONDING WORKER.GERICARE AIDE Work Phone: [facility] 05-11-2024 13:05-0500 Systolic blood pressure 130 mm[Hg] Key Portillo METAL BONDING WORKER.GERICARE AIDE Work Phone: [facility] [facility] 05-02-2024 12:35-0500 Body temperature 97.9 [degF] Dr. Michael Puga DO Work Phone: [facility] 05-02-2024 12:35-0500 Diastolic blood pressure 56 mm[Hg] Dr. Michael Puga DO Work Phone: [facility] 05-02-2024 12:35-0500 Heart rate 60 /min Dr. Michael Puga DO Work Phone: [facility] 05-02-2024 12:35-0500 Respiratory rate 16 /min Dr. Michael Puga DO Work Phone: [facility] 05-02-2024 12:35-0500 SaO2% (BldA) [Mass fraction] 92 % Dr. Michael Puga DO Work Phone: [facility] 05-02-2024 12:35-0500 Systolic blood pressure 150 mm[Hg] Dr. Michael Puga DO Work Phone: [facility] 05-02-2024 12:11-0500 Body weight 101.[address] Michael Puga DO Work Phone: [facility] 05-02-2024 07:43-0500 Inhaled oxygen flow rate 2 L/min Dr. Michael Puga DO Work Phone: [facility] 05-02-2024 05:33-0500 Body mass index (BMI) [Ratio] 37.3 kg/m2 Dr. Michael Puga DO Work Phone: [facility] 05-02-2024 01:40-0500 Inhaled oxygen concentration 30 % Dr. Michael Puga DO Work Phone: [facility] 03-31-2024 11:40-0500 Diastolic blood pressure 78 mm[Hg] Raymundo De León MD Work Phone: [facility] 03-31-2024 11:40-0500 Heart rate 60 /min Raymundo De León MD Work Phone: [facility] 03-31-2024 11:40-0500 SaO2% (BldA) [Mass fraction] 95 % Raymundo De León MD Work Phone: [facility] 03-31-2024 11:40-0500 Systolic blood pressure 156 mm[Hg] Raymundo De León MD Work Phone: [facility] 03-31-2024 11:20-0500 Respiratory rate 18 /min Raymundo De León MD Work Phone: [facility] 03-31-2024 10:39-0500 Body height 165.1 cm Raymundo De León MD Work Phone: [facility] 03-31-2024 10:39-0500 Body mass index (BMI) [Ratio] 38.27 kg/m2 Raymundo De León MD Work Phone: [facility] 03-31-2024 10:39-0500 Body temperature 98.1 [degF] Raymundo De León MD Work Phone: [facility] 03-31-2024 10:39-0500 Body weight 104.33 kg Raymundo De León MD Work Phone: [facility] 03-27-2024 14:15-0500 Body height 165.1 cm Pacc 1 Work Phone: [facility] 03-27-2024 14:15-0500 Body mass index (BMI) [Ratio] 38.27 kg/m2 Pacc 1 Work Phone: [facility] 03-27-2024 14:15-0500 Body temperature 97.5 [degF] Pacc 1 Work Phone: [facility] 03-27-2024 14:15-0500 Body weight 104.33 kg Pacc 1 Work Phone: [facility] 03-27-2024 14:15-0500 Diastolic blood pressure 54 mm[Hg] Pacc 1 Work Phone: [facility] 03-27-2024 14:15-0500 Heart rate 60 /min Pacc 1 Work Phone: [facility] 03-27-2024 14:15-0500 Respiratory rate 16 /min Pacc 1 Work Phone: [facility] 03-27-2024 14:15-0500 SaO2% (BldA) [Mass fraction] 94 % Pacc 1 Work Phone: [facility] 03-27-2024 14:15-0500 Systolic blood pressure 122 mm[Hg] Pacc 1 Work Phone: [facility] 03-23-2024 12:00-0500 Diastolic blood pressure 69 mm[Hg] Sarah Merchant PT Work Phone: [facility] 03-23-2024 12:00-0500 Heart rate 66 /min Sarah Merchant PT Work Phone: [facility] 03-23-2024 12:00-0500 SaO2% (BldA) [Mass fraction] 95 % Sarah Merchant PT Work Phone: [facility] 03-23-2024 12:00-0500 Systolic blood pressure 170 mm[Hg] Sarah Merchant PT Work Phone: [facility] 03-13-2024 14:18-0500 Body height 165.1 cm Sharon John METAL BONDING WORKER.GERICARE AIDE Work Phone: [facility] 03-13-2024 14:18-0500 Body mass index (BMI) [Ratio] 38.51 kg/m2 Sharon John METAL BONDING WORKER.GERICARE AIDE Work Phone: [facility] 03-13-2024 14:18-0500 Body temperature 97.5 [degF] Sharon John METAL BONDING WORKER.GERICARE AIDE Work Phone: [facility] 03-13-2024 14:18-0500 Body weight 104.96 kg Sharon John METAL BONDING WORKER.GERICARE AIDE Work Phone: [facility] 03-13-2024 14:18-0500 Diastolic blood pressure 75 mm[Hg] Sharon John METAL BONDING WORKER.GERICARE AIDE Work Phone: [facility] 03-13-2024 14:18-0500 Heart rate 71 /min Sharon John METAL BONDING WORKER.GERICARE AIDE Work Phone: [facility] 03-13-2024 14:18-0500 SaO2% (BldA) [Mass fraction] 93 % Sharon John METAL BONDING WORKER.GERICARE AIDE Work Phone: [facility] 03-13-2024 14:18-0500 Systolic blood pressure 184 mm[Hg] Sharon Rainesir METAL BONDING WORKER.GERICARE AIDE Work Phone: [facility] 03-01-2024 17:08-0400 Body mass index (BMI) [Ratio] 38.12 kg/m2 Michael Puga DO Work Phone: [facility] 03-01-2024 17:08-0400 Body temperature 97.11 [degF] Michael Puga DO Work Phone: [facility] 03-01-2024 17:08-0400 Body weight 101.15 kg Michael Puga DO Work Phone: [facility] 03-01-2024 17:08-0400 Diastolic blood pressure 80 mm[Hg] Michael Puga DO Work Phone: [facility] 03-01-2024 17:08-0400 Heart rate 64 /min Michael Puga DO Work Phone: [facility] 03-01-2024 17:08-0400 Respiratory rate 20 /min Michael Puga DO Work Phone: [facility] 03-01-2024 17:08-0400 Systolic blood pressure 144 mm[Hg] Michael Puga DO Work Phone: [facility] 12-07-2023 16:00-0400 Diastolic blood pressure 68 mm[Hg] Wilfred Mcclellan PRESERVATIVE FILLER MACHINE OPERATOR Work Phone: [facility] 12-07-2023 16:00-0400 Systolic blood pressure 144 mm[Hg] Wilfred Mcclellan PRESERVATIVE FILLER MACHINE OPERATOR Work Phone: [facility] 12-01-2023 13:50-0400 Body mass index (BMI) [Ratio] 38.8 kg/m2 Michael Puga DO Work Phone: [facility] 12-01-2023 13:50-0400 Body temperature 98.01 [degF] Michael Puga DO Work Phone: [facility] 12-01-2023 13:50-0400 Body weight 102.97 kg Michael Puga DO Work Phone: [facility] 12-01-2023 13:50-0400 Diastolic blood pressure 76 mm[Hg] Michael Puga DO Work Phone: [facility] 12-01-2023 13:50-0400 Heart rate 64 /min Michael Puga DO Work Phone: [facility] 12-01-2023 13:50-0400 Respiratory rate 24 /min Michael Puga DO Work Phone: [facility] 12-01-2023 13:50-0400 Systolic blood pressure 146 mm[Hg] Michael Puga DO Work Phone: [facility] 10-14-2023 13:24-0400 Body mass index (BMI) [Ratio] 38.46 kg/m2 Key Portillo METAL BONDING WORKER.GERICARE AIDE Work Phone: [facility] 10-14-2023 13:24-0400 Body weight 102.06 kg Key Portillo METAL BONDING WORKER.GERICARE AIDE Work Phone: [facility] 10-14-2023 13:24-0400 Diastolic blood pressure 58 mm[Hg] Key Portillo METAL BONDING WORKER.GERICARE AIDE Work Phone: [facility] 10-14-2023 13:24-0400 Heart rate 68 /min Key Portillo METAL BONDING WORKER.GERICARE AIDE Work Phone: [facility] 10-14-2023 13:24-0400 Respiratory rate 16 /min Key Portillo METAL BONDING WORKER.GERICARE AIDE Work Phone: [facility] 10-14-2023 13:24-0400 Systolic blood pressure 142 mm[Hg] Key Portillo METAL BONDING WORKER.GERICARE AIDE Work Phone: [facility] 04-05-2023 11:22-0500 Body temperature 97.2 [degF] Michael Puga DO Work Phone: [facility] 04-05-2023 11:22-0500 Body weight 101.61 kg Michael Puga DO Work Phone: [facility] 04-05-2023 11:22-0500 Diastolic blood pressure 80 mm[Hg] Michael Puga DO Work Phone: [facility] 04-05-2023 11:22-0500 Heart rate 64 /min Michael Puga DO Work Phone: [facility] 04-05-2023 11:22-0500 Respiratory rate 16 /min Michael Puga DO Work Phone: [facility] 04-05-2023 11:22-0500 Systolic blood pressure 120 mm[Hg] Michael Puga DO Work Phone: [facility] 12-28-2022 14:00-0400 Body height 162.9 cm Pulm Wstr Work Phone: [facility] 12-28-2022 14:00-0400 Body weight 102.06 kg Pulm Wstr Work Phone: [facility] 12-28-2022 14:00-0400 Heart rate 66 /min Pulm Wstr Work Phone: [facility] 12-28-2022 14:00-0400 Respiratory rate 14 /min Pulm Wstr Work Phone: [facility] 12-28-2022 14:00-0400 SaO2% (BldA) [Mass fraction] 96 % Pulm Wstr Work Phone: [facility] 12-22-2022 15:24-0400 Body height 165.1 cm Michael Puga DO Work Phone: [facility] 12-22-2022 15:24-0400 Body weight 103.87 kg Michael Puga DO Work Phone: [facility] 12-22-2022 15:24-0400 Diastolic blood pressure 62 mm[Hg] Michael Puga DO Work Phone: [facility] 12-22-2022 15:24-0400 Heart rate 63 /min Michael Puga DO Work Phone: [facility] 12-22-2022 15:24-0400 Respiratory rate 18 /min Michael Puga DO Work Phone: [facility] 12-22-2022 15:24-0400 SaO2% (BldA) [Mass fraction] 96 % Michael Puga DO Work Phone: [facility] 12-22-2022 15:24-0400 Systolic blood pressure 130 mm[Hg] Michael Puga DO Work Phone: [facility] 06-22-2022 11:42-0500 Body temperature 98.2 [degF] Michael Puga DO Work Phone: [facility] 06-22-2022 11:42-0500 Body weight 102.51 kg Michael Puga DO Work Phone: [facility] 06-22-2022 11:42-0500 Diastolic blood pressure 68 mm[Hg] Michael Puga DO Work Phone: [facility] 06-22-2022 11:42-0500 Heart rate 64 /min Michael Puga DO Work Phone: [facility] 06-22-2022 11:42-0500 Respiratory rate 16 /min Michael Puga DO Work Phone: [facility] 06-22-2022 11:42-0500 Systolic blood pressure 128 mm[Hg] Michael Puga DO Work Phone: [facility] 06-04-2022 15:28-0500 Diastolic blood pressure 80 mm[Hg] Key Portillo METAL BONDING WORKER.GERICARE AIDE Work Phone: [facility] 06-04-2022 15:28-0500 Systolic blood pressure 164 mm[Hg] Key Portillo METAL BONDING WORKER.GERICARE AIDE Work Phone: [facility] 06-04-2022 14:34-0500 Body weight 106.69 kg Key Portillo METAL BONDING WORKER.GERICARE AIDE Work Phone: [facility] 06-04-2022 14:34-0500 Heart rate 63 /min Key Portillo METAL BONDING WORKER.GERICARE AIDE Work Phone: [facility] 06-04-2022 14:34-0500 Respiratory rate 16 /min Key Portillo METAL BONDING WORKER.GERICARE AIDE Work Phone: [facility] 06-04-2022 14:34-0500 SaO2% (BldA) [Mass fraction] 93 % Key Portillo METAL BONDING WORKER.GERICARE AIDE Work Phone: [facility] 04-21-2022 12:31-0500 Body temperature 96.8 [degF] Michael Puga DO Work Phone: [facility] 04-21-2022 12:31-0500 Body weight 105.23 kg Michael Puga DO Work Phone: [facility] 04-21-2022 12:31-0500 Diastolic blood pressure 74 mm[Hg] Michael Puga DO Work Phone: [facility] 04-21-2022 12:31-0500 Heart rate 60 /min Michael Puga DO Work Phone: [facility] 04-21-2022 12:31-0500 Respiratory rate 20 /min Michael Puga DO Work Phone: [facility] 04-21-2022 12:31-0500 Systolic blood pressure 124 mm[Hg] Michael Puga DO Work Phone: [facility] 02-16-2022 11:44-0400 Body temperature 97 [degF] Michael Puga DO Work Phone: [facility] 02-16-2022 11:44-0400 Body weight 105.69 kg Michael Puga DO Work Phone: [facility] 02-16-2022 11:44-0400 Diastolic blood pressure 70 mm[Hg] Michael Puga DO Work Phone: [facility] 02-16-2022 11:44-0400 Heart rate 68 /min Michael Puga DO Work Phone: [facility] 02-16-2022 11:44-0400 Respiratory rate 16 /min Michael Puga DO Work Phone: [facility] 02-16-2022 11:44-0400 Systolic blood pressure 146 mm[Hg] Michael Puga DO Work Phone: [facility] 01-16-2022 09:59-0400 Body temperature 97.59 [degF] Raymundo De León MD Work Phone: [facility] 01-16-2022 09:59-0400 Body weight 105.05 kg Raymundo De León MD Work Phone: [facility] 01-16-2022 09:59-0400 Heart rate 80 /min Raymundo De León MD Work Phone: [facility] 01-16-2022 09:59-0400 SaO2% (BldA) [Mass fraction] 96 % Raymundo De León MD Work Phone: [facility] 01-08-2022 14:45-0400 Diastolic blood pressure 72 mm[Hg] Raymundo De León MD Work Phone: [facility] 01-08-2022 14:45-0400 Heart rate 60 /min Raymundo De León MD Work Phone: [facility] 01-08-2022 14:45-0400 Respiratory rate 16 /min Raymundo De León MD Work Phone: [facility] 01-08-2022 14:45-0400 SaO2% (BldA) [Mass fraction] 92 % Raymundo De León MD Work Phone: [facility] 01-08-2022 14:45-0400 Systolic blood pressure 163 mm[Hg] Raymundo De León MD Work Phone: [facility] 01-08-2022 13:15-0400 Body temperature 97.81 [degF] Raymundo De León MD Work Phone: [facility] 12-18-2021 15:07-0400 Body height 165.1 cm Raymundo De León MD Work Phone: [facility] 12-18-2021 15:07-0400 Body temperature 98.71 [degF] Raymundo De León MD Work Phone: [facility] 12-18-2021 15:07-0400 Body weight 102.51 kg Raymundo De León MD Work Phone: [facility] 12-18-2021 15:07-0400 Diastolic blood pressure 70 mm[Hg] Raymundo De León MD Work Phone: [facility] 12-18-2021 15:07-0400 Heart rate 78 /min Raymundo De León MD Work Phone: [facility] 12-18-2021 15:07-0400 SaO2% (BldA) [Mass fraction] 98 % Raymundo De León MD Work Phone: [facility] 12-18-2021 15:07-0400 Systolic blood pressure 138 mm[Hg] Raymundo De León MD Work Phone: [facility] 10-20-2021 15:25-0400 Body temperature 98.91 [degF] Nunu Bogner PA-C Work Phone: [facility] 10-20-2021 15:25-0400 Body weight 101.33 kg Nunu Bogner PA-C Work Phone: [facility] 10-20-2021 15:25-0400 Diastolic blood pressure 80 mm[Hg] Nunu Bogner PA-C Work Phone: [facility] 10-20-2021 15:25-0400 Heart rate 61 /min Nunu Bogner PA-C Work Phone: [facility] 10-20-2021 15:25-0400 Respiratory rate 20 /min Nunu Bogner PA-C Work Phone: [facility] 10-20-2021 15:25-0400 SaO2% (BldA) [Mass fraction] 95 % Nunu Gonzalez PA-C Work Phone: [facility] 10-20-2021 15:25-0400 Systolic blood pressure 134 mm[Hg] Nunugemini Gonzalez PA-C Work Phone: [facility] 06-09-2021 09:35-0500 Body height 165.[address] Michael Puga Work Phone: [facility] Work Phone: 06-09-2021 09:35-0500 Body weight 100.[address] Michael Puga Work Phone: [facility] Work Phone: 06-06-2021 08:07-0500 Body mass index (BMI) [Ratio] 36.9 kg/m2 Dr. Michael Puga Work Phone: [facility] Work Phone: 06-02-2021 11:58-0500 Body mass index (BMI) [Ratio] 36.9 kg/m2 Dr. Michael Puga Work Phone: [facility] Work Phone: 06-02-2021 11:58-0500 Body weight 100.[address] Michael Puga Work Phone: [facility] Work Phone: 06-02-2021 11:58-0500 Diastolic blood pressure 79 mm[Hg] Dr. Michael uPga Work Phone: [facility] Work Phone: 06-02-2021 11:58-0500 Heart rate 70 /min Dr. Michael Puga Work Phone: [facility] Work Phone: 06-02-2021 11:58-0500 Respiratory rate 18 /min Dr. Michael Puga Work Phone: [facility] Work Phone: 06-02-2021 11:58-0500 SaO2% (BldA) [Mass fraction] 94 % Dr. Michael Puga Work Phone: [facility] Work Phone: 06-02-2021 11:58-0500 Systolic blood pressure 174 mm[Hg] Dr. Michael Puga Work Phone: [facility] Work Phone: 12-21-2020 19:10-0400 Diastolic blood pressure 94 mm[Hg] Michael Puga Other Phone: [facility] 12-21-2020 19:10-0400 Heart rate 88 /min Michael Puga Other Phone: [facility] 12-21-2020 19:10-0400 Respiratory rate 18 /min Michael Puga Other Phone: [facility] 12-21-2020 19:10-0400 SaO2% (BldA) [Mass fraction] 95 % Michael Puga Other Phone: [facility] 12-21-2020 19:10-0400 Systolic blood pressure 144 mm[Hg] Michael Puga Other Phone: [facility] 12-21-2020 17:03-0400 Body height 165.1 cm Michael Puga Other Phone: [facility] 12-21-2020 17:03-0400 Body temperature 99.86 [degF] Michael Puga Other Phone: [facility] 12-21-2020 17:03-0400 Body weight 98 kg Michael Puga Other Phone: [facility] 10-22-2016 12:59-0400 BMI (Body Mass Index) 37.27 kg/m2 Shalini Montanez [facility] Work Phone: 10-22-2016 12:59-0400 BP Diastolic 70 mm[Hg] Shalini Montanez [facility] Work Phone: 10-22-2016 12:59-0400 BP Systolic 140 mm[Hg] [facility] Work Phone: 10-22-2016 12:59-0400 Height 165.1 cm Shalini Montanez [facility] Work Phone: 10-22-2016 12:59-0400 Pulse (Heart Rate) 68 /min Shalini Montanez [facility] Work Phone: 10-22-2016 12:59-0400 Respiratory Rate 20 /min Shalini [facility] Work Phone: 10-22-2016 12:59-0400 Weight 101.61 kg Shalini Montanez [facility] Work Phone: 04-15-2016 13:20-0500 BMI [...] 13:20-0500 Weight 106.69 kg Delisa Juárez RN [facility] Work Phone: 05-28-2015 13:30-0500 BP Diastolic 82 mm[Hg] Delisa Juárez RN [facility] Work Phone: 05-28-2015 13:30-0500 BP Systolic 177 mm[Hg] Delisa Juárez RN [facility] Work Phone: 11-22-2014 13:42-0400 Heart rate 60 /min Delisa Juárez RN [facility] Work Phone: 05-05-2011 16:04-0500 Heart rate 420 ms Delisa Juárez RN [facility] Work Phone: 04-07-2011 13:46-0500 Height 165.1 cm Delisa Juárez RN [facility] Work Phone: Encounters Encounter Date Encounter Type Care Provider Facility Start: 12-04-2024 ambulatory Michael Triana y:[facility] Start: 11-27-2024 End: 11-27-2024 Refill Michael Puga DO Work Phone: [facility] Comment on above: Refill Request Start: 11-11-2024 End: 11-13-2024 Refill Key Portillo METAL BONDING WORKER.GERICARE AIDE Work Phone: [facility] Comment on above: Refill Request Start: 11-10-2024 End: 11-13-2024 Telephone encounter Michael Puga DO Work Phone: [facility] Comment on above: Patient Update Start: 11-02-2024 End: 11-02-2024 Patient encounter procedure Anabel Horne PA -[facility] Work Phone: Start: 11-02-2024 End: 11-02-[address] Michael Puga DO Work Phone: -[facility] Start: 11-01-2024 End: 11-01-2024 Telephone encounter Key Portillo METAL BONDING WORKER.GERICARE AIDE Work Phone: [facility] Start: 10-31-2024 End: 10-31-[address] Michael Puga DO Work Phone: -Radiology [facility] Start: 10-31-2024 End: 10-31-2024 Patient encounter procedure Anabel Horne PA -Radiology [facility] Work Phone: Start: 10-31-2024 End: 10-31-2024 ambulatory Michael Puga Facility:[facility] Start: 10-27-2024 End: 10-27-2024 ambulatory Sarah Merchant PT Work Phone: [facility] Comment on above: Abnormality of gait (Primary Dx); Weakness; Difficulty walking; Imbalance Start: 10-27-2024 End: 10-27-[address] Michael Puga DO Work Phone: -[facility] Start: 10-27-2024 End: 10-27-[address] [facility] Work Phone: Start: 10-25-2024 End: 10-26-2024 Telephone encounter Michael Puga DO Work Phone: [facility] Comment on above: Medication Question Start: 10-23-2024 End: 10-23-[address] Michael Puga DO Work Phone: -[facility] Start: 10-23-2024 End: 10-23-[address] [facility] Work Phone: Start: 10-16-2024 End: 10-16-[address] Michael Puga DO Work Phone: -[facility] Start: 10-16-2024 End: 10-16-[address] [facility] Work Phone: Start: 10-09-2024 End: 10-09-2024 ambulatory Joy Sun PTA [facility] Comment on above: Abnormality of gait (Primary Dx); Weakness; Difficulty walking; Imbalance Start: 10-02-2024 End: 10-02-2024 ambulatory Pj Bledsoe PT Work Phone: [facility] Comment on above: Abnormality of gait (Primary Dx); Weakness; Difficulty walking; Imbalance Start: 09-28-2024 End: 09-28-2024 Telephone encounter Key Portillo APRN.GERICARE AIDE Work Phone: [facility] Comment on above: report tremor is wor se Start: 09-28-2024 End: 09-28-2024 ambulatory Sarahholly Cainamanda PT Work Phone: [facility] Comment on above: Weakness (Primary Dx ); Difficulty walking; Abnormality of gait; Imbalance Start: 09-11-2024 End: 09-11-2024 Refill Michael Puga DO Work Phone: [facility] Comment on above: Refill Request Start: 09-08-2024 End: 09-11-2024 Telephone encounter Michael Puga DO Work Phone: [facility] Comment on above: Problem with order Start: 09-05-2024 End: 09-08-2024 Telephone encounter Michael Puga DO Work Phone: [facility] Comment on above: Patient Question Start: 08-30-2024 End: 08-30-2024 Patient encounter procedure Michael Puga DO Work Phone: [facility] Comment on above: Hypoglycemia (Primar y Dx); Restless leg; Dysthymia; Congestive heart failure, unspecified HF chronicity, unspecified heart failure type (HCC); Obstructive lung disease (HCC); Arthritis, multiple joint involvement; Gait abnormality; Chronic respiratory failure with hypoxia (HCC) Start: 08-30-2024 End: 08-30-2024 ambulatory MICHAEL PUGA Facility:[facility] Start: 08-17-2024 End: 08-17-2024 Office outpatient visit 25 minutes Asia Rosales APRN.GERICARE AIDE Work Phone: [facility] Comment on above: Anxiety (Primary Dx) ; Dysthymia; Congestive heart failure, unspecified HF chronicity, unspecified heart failure type (HCC); Function kidney decreased; Obstructive lung disease (HCC); Pulmonary hypertension (HCC) Start: 08-17-2024 End: 08-17-2024 ambulatory ASIA CONNIE Facility:[facility] Start: 08-16-2024 End: 08-18-2024 Telephone encounter Michael Puga DO Work Phone: [facility] Comment on above: Patient Update Start: 07-28-2024 End: 07-28-2024 ambulatory Michael Puga Facility:[facility] Start: 07-28-2024 End: 07-28-[address] Gallo Hickey MD -[facility] Work Phone: Start: 07-07-2024 End: 07-07-2024 Patient encounter procedure Anabel ALVA -[facility] Work Phone: Start: 07-07-2024 End: 07-07-2024 ambulatory Michael Puga DO Work Phone: [facility] Comment on above: Medication Question Start: 07-07-2024 End: 07-07-2024 ambulatory Michael Puga Facility:[facility] Start: 07-03-2024 Non-patient / Non-visit Dr. Virgil ordaz MD -[facility] Start: 07-03-2024 End: 07-03-[address] Michael Puga DO Work Phone: [facility] Work Phone: Start: 07-03-2024 End: 07-03-2024 Patient encounter procedure Anabel ALVA -Cardiovascular Services Work Phone: Start: 07-03-2024 End: 07-03-2024 ambulatory Michael Puga Facility:[facility] Start: 06-26-2024 End: 07-14-2024 Telephone encounter Michael Puga DO Work Phone: [facility] Comment on above: Patient Update Start: 06-22-2024 End: 06-22-2024 Patient encounter procedure Anabel ALVA -Pulmonary Services/Neurology Work Phone: Start: 06-22-2024 ambulatory Michael Puga Facilit y:[facility] Start: 06-21-2024 End: 06-21-2024 Patient encounter procedure Michael Puga DO Work Phone: [facility] Comment on above: Obstructive lung dis ease (HCC) (Primary Dx); Thyroid disease; Pulmonary hypertension (HCC); WELCH (dyspnea on exertion); Function kidney decreased; Situational mixed anxiety and depressive disorder; Arthritis, multiple joint involvement Start: 06-21-2024 End: 06-22-2024 ambulatory MICHAEL PUGA Facility:[facility] Start: 06-16-[address] Faby Puga DO -[facility] Work Phone: Start: 06-16-2024 ambulatory Gallo Hickey Facility:[facility] Start: 06-06-2024 End: 06-06-2024 Telephone encounter Michael Puga DO Work Phone: [facility] Comment on above: Results, Lab Start: 06-03-2024 ambulatory Michael Puga Facilit y:[facility] Start: 06-02-2024 End: 06-02-2024 ambulatory Michael Goldsteinrison Facility:[facility] Start: 06-02-2024 End: 06-02-[address] Michael Puga DO -[facility] Start: 06-01-2024 End: 06-01-2024 ambulatory Michael Puga Facility:[facility] Start: 06-01-2024 End: 06-01-[address] Gallo Hickey MD -[facility] Work Phone: Start: 05-30-2024 End: 05-31-2024 Telephone encounter Michael Puga DO Work Phone: [facility] [place] Comment on above: Results Start: 05-25-2024 End: 05-25-2024 Telephone encounter Michael Puga DO Work Phone: [facility] Comment on above: Patient Update; Medi cation Question Start: 05-25-2024 End: 05-25-[address] Michael Puga DO -Laboratory, Specimen Work Phone: Start: 05-25-2024 End: 05-25-2024 ambulatory Michael Puga Facility:[facility] Start: 05-22-2024 ambulatory Key Lety Portillo Fa cility:[facility] Start: 05-19-2024 End: 05-19-2024 Telephone encounter Michael Alyssa Puga DO Work Phone: [facility] Comment on above: Results Start: 05-16-2024 End: 05-18-2024 Telephone encounter Michael Shah Puga DO Work Phone: [facility] Comment on above: Medication Update; O rders Start: 05-12-2024 End: 05-12-2024 Telephone encounter Key Portillo APRN.GERICARE AIDE Work Phone: [facility] Comment on above: Patient Question Results Start: 05-11-2024 End: 05-11-2024 Patient encounter procedure Key Portillo APRN.GERICARE AIDE Work Phone: [facility] Comment on above: Hospital discharge f ollow-up (Primary Dx); Congestive heart failure, unspecified HF chronicity, unspecified heart failure type (HCC); Thyroid disease; Restless leg Start: 05-11-2024 End: 05-11-2024 ambulatory KEY PORTILLO Facility:[facility] Start: 05-08-2024 End: 05-08-2024 Telephone encounter Michael Ghotraon DO Work Phone: [facility] Comment on above: Patient Update Start: 05-05-2024 End: 05-05-2024 Telephone encounter Michael Shah Puga DO Work Phone: [facility] Comment on above: Home Health Point of Care Results Start: 05-04-2024 End: 05-05-2024 Patient Outreach Michael Ghotraon DO Work Phone: [facility] Comment on above: Transition Of Residential Health Plan of Care Refill Request Start: 05-02-2024 Non-patient / Non-visit Dr. Alyson Vicente MD -[facility] Work Phone: Start: 05-01-2024 End: 05-01-2024 Telephone encounter Michael Puga DO Work Phone: [facility] [place] Comment on above: verbal orders Start: 05-01-2024 [...] Telephone encounter Michael Puga DO Work Phone: [facility] Comment on above: Leg Pain Start: 04-20-2024 End: 04-20-2024 ambulatory Sarah Merchant PT Work Phone: [facility] Comment on above: Difficulty walking ( Primary Dx); Weakness; Imbalance Start: 04-18-2024 End: 04-18-2024 ambulatory Sarah Merchant PT Work Phone: [facility] Comment on above: Difficulty walking ( Primary Dx); Imbalance; Weakness Start: 04-10-2024 End: 04-10-2024 ambulatory SHARON JARRETT Facility:[facility] Start: 04-10-2024 End: 04-10-2024 Patient encounter procedure Sharon Jarrett METAL BONDING WORKER.GERICARE AIDE Work Phone: General Surgery Comment on above: Other gastritis with out bleeding (Primary Dx) Start: 03-31-2024 ambulatory SHARON JARRETT Facilit y:[facility] Start: 03-31-2024 End: 03-31-2024 Subsequent hospital visit by physician Raymundo De León MD Work Phone: [facility] Comment on above: Epigastric abdominal pain [R10.13] Start: 03-27-2024 End: 03-27-2024 PAT [facility] Work Phone: Pre Anesthesia Comment on above: Pre-operative examin ation (Primary Dx); JOSE on CPAP; Obstructive lung disease (HCC); Primary hypertension; Hyperlipidemia, unspecified hyperlipidemia type; Cardiac resynchronization therapy pacemaker (IMPORT COORDINATOR-P) in place; Paroxysmal atrial fibrillation (HCC); Pulmonary [...] Start: 03-27-2024 End: 03-27-2024 Preprocedural examination done [facility] [place] [facility] Work Phone: [facility] Start: 03-23-2024 End: 03-23-2024 ambulatory Sarah Merchant PT Work Phone: [facility] Comment on above: Difficulty walking ( Primary Dx); Imbalance; Weakness Start: 03-20-2024 End: 03-20-2024 ambulatory Sarah Merchant PT Work Phone: [facility] Comment on above: Difficulty walking ( Primary Dx); Imbalance; Weakness Start: 03-16-2024 End: 03-16-2024 ambulatory Sarah Merchant PT Work Phone: [facility] Comment on above: Difficulty walking ( Primary Dx); Imbalance; Weakness Start: 03-14-2024 End: 03-14-2024 ambulatory Joy Sun PRESERVATIVE FILLER MACHINE OPERATOR [facility] Comment on above: Difficulty walking ( Primary Dx); Imbalance; Weakness Start: 03-13-2024 End: 03-13-2024 ambulatory SHARON JARRETT Facility:[facility] Start: 03-13-2024 End: 03-13-2024 Patient encounter procedure Shaorn Jarrett GERICARE AIDE Work Phone: General Surgery Comment on above: Epigastric abdominal pain (Primary Dx); Pulmonary hypertension (HCC) Start: 03-13-2024 End: 04-03-2024 Telephone encounter Raymundo De León MD Work Phone: General Surgery Comment on above: 03-31-2024 EGD kym spence Start: 03-08-2024 End: 03-09-2024 Telephone encounter Michael Puga DO Work Phone: [facility] Comment on above: Wheelchair order Start: 03-02-2024 End: 03-02-2024 ambulatory Sarah Merchant PT Work Phone: [facility] Comment on above: Difficulty walking ( Primary Dx); Imbalance; Weakness Start: 03-01-2024 End: 03-01-2024 Patient encounter procedure Michael Puga DO Work Phone: [facility] Comment on above: Arthritis, multiple joint involvement (Primary Dx); Anxiety; Need for influenza vaccination; Epigastric abdominal pain; Obstructive lung disease (HCC); Gait abnormality; Imbalance Start: 03-01-2024 End: 03-01-2024 ambulatory MICHAEL PUGA Facility:[facility] Start: 03-01-2024 End: 03-02-2024 Telephone encounter Michael Puga DO Work Phone: [facility] [place] Comment on above: Orders Start: 02-17-2024 End: 02-18-2024 ambulatory Sarah Merchant PT Work Phone: [facility] Comment on above: Difficulty walking ( Primary Dx); Imbalance; Weakness Start: 02-14-2024 End: 02-14-2024 ambulatory Wilfred Mcclellan PRESERVATIVE FILLER MACHINE OPERATOR Work Phone: [facility] Comment on above: Weakness (Primary Dx ); Imbalance Start: 02-10-2024 End: 02-10-2024 ambulatory Sarah Merchant PT Work Phone: [facility] Comment on above: Weakness (Primary Dx ); Imbalance; Difficulty walking Start: 02-07-2024 ambulatory Michael Ghotraon Facilit y:[facility] Start: 02-07-2024 End: 02-07-2024 ambulatory Sarah Merchant PT Work Phone: [facility] Comment on above: Weakness (Primary Dx ); Imbalance; Difficulty walking Start: 02-02-2024 ambulatory Michael Goldsteinrison Facilit y:[facility] Start: 02-02-2024 End: 02-02-2024 ambulatory Anabel Horne Facility:[facility] Start: 01-31-2024 End: 01-31-2024 ambulatory Sarah Merchant PT Work Phone: [facility] Comment on above: Weakness (Primary Dx ); Imbalance; Difficulty walking Start: 01-28-2024 End: 01-28-2024 ambulatory Michael Ghotraon Facility:[facility] Start: 01-26-2024 End: 01-26-2024 ambulatory Wilfred Zeny PRESERVATIVE FILLER MACHINE OPERATOR Work Phone: [facility] Comment on above: Weakness (Primary Dx ); Imbalance Start: 01-25-2024 End: 01-25-2024 ambulatory Michael Goldsteinrison Facility:[facility] Start: 01-25-2024 End: 01-25-2024 ambulatory Anabel Horne Facility:[facility] Start: 01-18-2024 End: 01-18-2024 ambulatory Sarah Merchant PT Work Phone: [facility] Comment on above: Weakness (Primary Dx ); Imbalance; Difficulty walking Start: 01-10-2024 End: 01-11-2024 Telephone encounter Michael Alyssa Puga DO Work Phone: [facility] Comment on above: Wheelchair order Start: 12-13-2023 End: 12-14-2023 ambulatory Sarah Merchant PT Work Phone: [facility] Comment on above: Weakness (Primary Dx ); Difficulty walking; Imbalance Start: 12-08-2023 End: 12-08-2023 ambulatory MICHAEL GOLDSTEINRISON Facility:[facility] Start: 12-07-2023 End: 12-07-2023 ambulatory Wilfred Mcclellan PRESERVATIVE FILLER MACHINE OPERATOR Work Phone: [facility] Comment on above: Weakness (Primary Dx ) Start: 12-01-2023 End: 12-01-2023 ambulatory MICHAEL Alyssa PUGA Facility:[facility] Start: 12-01-2023 End: 12-01-2023 Patient encounter procedure Michael Puga DO Work Phone: [facility] [place] Comment on above: Acute bronchitis, un specified organism (Primary Dx); Thyroid disease; Rhonchi; Obstructive lung disease (HCC); Paroxysmal atrial fibrillation (HCC); Disorder of carotid artery (HCC); Malignant melanoma of skin of trunk, except scrotum (HCC) Start: 11-26-2023 Telephone encounter Asia Persaud APRN.GERICARE AIDE Work Phone: [facility] Comment on above: Results Start: 11-25-2023 End: 11-25-2023 ambulatory Sarah Merchant PT Work Phone: [facility] Comment on above: Weakness (Primary Dx ); Difficulty walking; Imbalance Start: 11-23-2023 End: 11-23-2023 ambulatory Sarah Merchant PT Work Phone: [facility] Comment on above: Weakness (Primary Dx ); Difficulty walking; Imbalance Start: 11-15-2023 End: 11-16-2023 ambulatory Sarah Merchant PT Work Phone: [facility] Comment on above: Weakness (Primary Dx ); Difficulty walking; Imbalance Start: 10-18-2023 Refill Michael ochoa DO Work Phone: [facility] Comment on above: Refill Request Orders; Medication Q uestion Start: 10-14-2023 End: 10-14-2023 Patient encounter procedure Key Portillo APRN.GERICARE AIDE Work Phone: [facility] Comment on above: Hospital discharge f ollow-up (Primary Dx); Anxiety; TIA (transient ischemic attack); Hyperlipidemia, unspecified hyperlipidemia type; Sleep disturbances; Community acquired pneumonia, unspecified laterality; On supplemental oxygen therapy; Subclinical hypothyroidism; IFG (impaired fasting glucose); Primary hypertension Start: 10-11-2023 ambulatory Isabella burris RN Work Phone: Electrical Tech/Project Manager Management Start: 10-11-2023 Telephone follow-up Isabella Michel RN Work Phone: Electrical Tech/Project Manager Management Comment on above: Transition Of Care ( TCM OON follow up ) Weekly phone contact (Recurring) for Transitional Care Management Start: 10-06-2023 Telephone encounter Michael car DO Work Phone: [facility] Start: 10-04-2023 Patient Outreach Isabella Michel RN Work Phone: Electrical Tech/Project Manager Management Comment on above: Transition Of Care ( TCM / [facility] [place] 10/01/OON ) Initial phone contact for Transitional Care Management HH: orders, update, medications Start: 10-01-2023 Telephone encounter Michael car DO Work Phone: [facility] Start: 04-05-2023 End: 04-05-2023 Patient encounter procedure Michael Puga DO Work Phone: [facility] Comment on above: Subclinical hypothyr oidism [...] Start: 03-31-2023 Telephone encounter Michael Nagy Phone: [facility] Comment on above: Patient Question Start: 01-11-2023 Telephone encounter Michael car DO Work Phone: [facility] Comment on above: Orders Start: 12-30-2022 Telephone encounter Michael car DO Work Phone: [facility] Comment on above: Results Start: 12-28-2022 End: 12-28-2022 Subsequent hospital visit by physician Mile [facility] Work Phone: Radiology Comment on above: WELCH (dyspnea on exer tion) [R06.09] Start: 12-28-2022 End: 12-28-2022 ambulatory Pulm Lab [facility] Work Phone: PULM [facility] Comment on above: Spirometry Start: 12-28-2022 End: 12-28-2022 Patient encounter procedure Pulm Lab [facility] Work Phone: [facility] [place] Start: 12-22-2022 End: 12-22-2022 Patient encounter procedure Michael Puga DO Work Phone: [facility] Comment on above: WELCH (dyspnea on exer tion) (Primary Dx); Fatigue, unspecified type; Obesity, Class II, BMI 35-39.9; IFG (impaired fasting glucose); Vitamin B12 deficiency; Primary hypertension; Disorder of carotid artery (HCC) Start: 09-29-2022 Refill Michael ochoa DO Work Phone: [facility] Comment on above: Refill Request Start: 06-29-2022 Refill Michael ochoa DO Work Phone: [facility] Comment on above: Refill Request Start: 06-22-2022 End: 06-22-2022 Patient encounter procedure Michael Puga DO Work Phone: [facility] Comment on above: Iron deficiency (Lisa radha Dx); Fatigue, unspecified type; SOB (shortness of breath) on exertion; IFG (impaired fasting glucose); Vitamin D deficiency; Vitamin B12 deficiency; Hyperlipidemia, unspecified hyperlipidemia type; Primary hypertension; Obesity, Class II, BMI 35-39.9; Arthritis, multiple joint involvement Start: 06-10-2022 Telephone encounter Key Palmer son METAL BONDING WORKER.GERICARE AIDE Work Phone: [facility] Comment on above: Results Start: 06-08-2022 Telephone encounter Key ochoa METAL BONDING WORKER.GERICARE AIDE Work Phone: [facility] Comment on above: Results Start: 06-05-2022 Telephone encounter Michael car DO Work Phone: [facility] Comment on above: Medication Problem Start: 06-04-2022 End: 06-04-2022 Patient encounter procedure Key Portillo METAL BONDING WORKER.GERICARE AIDE Work Phone: [facility] [place] Comment on above: Fatigue, unspecified type (Primary Dx); SOB (shortness of breath) on exertion; Hyperlipidemia, unspecified hyperlipidemia type; Obesity, Class II, BMI 35-39.9; IFG (impaired fasting glucose); Iron deficiency anemia, unspecified iron deficiency anemia type; Vitamin D deficiency; Bilateral leg edema; Primary hypertension Start: 06-02-2022 ambulatory Anita Phyllis Box MA [facility] [employer] Comment on above: Population Health Na vigation Outreach (Healthy at Home - [facility] ) Extreme fatigue Start: 04-27-2022 Telephone encounter Michael Carlos joceline VELASCO Work Phone: [facility] [place] Comment on above: Patient Question Start: 04-21-2022 End: 04-21-2022 Patient encounter procedure Michael Shah Edd VELASCO Work Phone: [facility] Comment on above: Dysthymia (Primary D x); Situational insomnia; Arthritis, multiple joint involvement; IFG (impaired fasting glucose); Obesity, Class II, BMI 35-39.9; Fatigue, unspecified type; Iron deficiency Start: 02-16-2022 End: 02-16-2022 Patient encounter procedure Michael Alyssa Edd VELASCO Work Phone: [facility] [place] Comment on above: Dysthymia (Primary D x); [...] 25 minutes Nunu Gonzalez PA-C Work Phone: [facility] Comment on above: Urinary frequency (P rimary Dx); Glucosuria Start: 09-10-2021 End: 09-10-[address] Michael Puga Work Phone: [facility]-Laboratory Start: 08-06-2021 Refill Katia Dias Work Phone: General Surgery Comment on above: Refill Request Start: 06-19-[address] ash TRUJILLO Work Phone: [facility] Comment on above: Results Start: 06-16-2021 End: 06-16-[address] Michael Puga Work Phone: [facility] Start: 06-09-2021 End: 06-09-2021 Admission to same day surgery center Dr. Michael Puga Work Phone: [facility]-Supervisor Component Assembler/Special Procedures Start: 06-02-2021 End: 06-02-[address] Michael Puga Work Phone: [facility]-Radiology, [facility] Start: 06-02-2021 End: 06-02-[address] Michael Puga Work Phone: [facility] Start: 12-21-2020 End: 12-21-2020 Emergency department patient visit Kat Gleason [facility] Procedures [...] Start: 03-31-2024 Esophagogastroduodenoscopy transoral diagnostic Sharon Jarrett APRN.GERICARE AIDE Work Phone: Start: 04-05-2023 [employer] COVID-19 VACCINE (2022- SEASON) AGE 12+ YR [...] stick/tablet rgnt auto w/o microscopy Holly Clay METAL BONDING WORKER.GERICARE AIDE Work Phone: Start: 06-02-2021 Plain chest X-ray [...] 04-15-2016 Dietary management education, guidance, and counseling Delisa Juárez RN Start: 04-15-2016 End: 04-15-2016 SHAVING MACHINE OPERATOR Anabel Horne PA-C Work Phone: Start: 04-15-2016 [...] Gallo Hickey MD Start: 11-22-2014 End: 11-22-2014 SHAVING MACHINE OPERATOR Anabel Horne PA-C Work Phone: Start: 11-22-2014 [...] Up Appt 6 months Loli Knapp Start: 07-25-2014 End: 11-07-2014 Pacer Clinic [...] Gallo Hickey MD Start: 11-22-2013 End: 11-22-2013 SHAVING MACHINE OPERATOR Anabel Horne PA-C Work Phone: Start: 11-22-2013 [...] PA-C Work Phone: Start: 05-24-2013 End: 05-24-2013 SHAVING MACHINE OPERATOR Anabel Horne PA-C Work Phone: Start: 05-24-2013 [...] DTaP,Tdap,Td Vaccine (3 - Td or Tdap) [facility] Start: 08-31-2027 Diabetes Screening Diabetes Screening [facility] Start: 05-11-2027 Diabetes Screening Diabetes Screening [facility] Start: 11-24-2026 Diabetes Screening Diabetes Screening [facility] Start: 03-31-2026 Diabetes Screening Diabetes Screening [facility] Start: 12-15-2025 DIABETES SCREEN DIABETES SCREEN [facility] Start: 12-15-2025 Diabetes Screening Diabetes Screening [facility] Start: 09-17-2025 DIABETES SCREEN DIABETES SCREEN [facility] Start: 06-04-2025 DIABETES SCREEN DIABETES SCREEN [facility] Start: 02-13-2025 DIABETES SCREEN DIABETES SCREEN [facility] Start: 01-01-2025 Influenza vaccination Influenza Vaccine (#1) [facility] Start: 12-08-2024 End: 12-08-2024 Patient encounter procedure 12/08/2024 2:40 PM EDT Office Visit Family [facility] [address] [place] [address] Michael Puga DO [address] [place] [address] 3 month follow up [facility] Comment on above: 3 month follow up Start: 10-27-2024 End: 10-27-2024 Patient encounter procedure 10/27/2024 12:45 PM EDT OT/PT/Speech Visit [facility] [address] [place] [address] Sarah Merchant, PT [address] [place], [place] [id number] CONSULT/WEAKNESS [facility] Comment on above: CONSULT/WEAKNESS Start: 10-18-2024 End: 10-18-2024 Patient encounter procedure 10/18/2024 1:30 PM EDT OT/PT/Speech Visit [facility] [address] [place] [address] Wilfred Mcclellan, PRESERVATIVE FILLER MACHINE OPERATOR [address] [place], [place] [id number] CONSULT/WEAKNESS [facility] Comment on above: CONSULT/WEAKNESS Start: 10-13-2024 Covid-19 Vaccine ( season) Covid-19 Vaccine ( season) [facility] Comment on above: Postponed from 08/05/2023 (Declined at t his time) Start: 10-13-2024 RSV Vaccine (1 - 1-dose 60+ series) RSV Vaccine (1 - 1-dose 60+ series) [facility] Comment on above: Postponed from 2001 (Declined at t his time) Start: 10-13-2024 RSV Vaccine (1 - 1-dose 75+ series) RSV Vaccine (1 - 1-dose 75+ series) [facility] Comment on above: Postponed from 2016 (Declined at t his time) Start: 10-09-2024 End: 10-09-2024 Patient encounter procedure 10/09/2024 12:45 PM EDT OT/PT/Speech Visit [facility] [address] [place] [address] Joy Sun PTA CONSULT/WEAKNESS [facility] Comment on above: CONSULT/WEAKNESS Start: 10-02-2024 End: 10-02-2024 Patient encounter procedure 10/02/2024 3:00 PM EDT OT/PT/Speech Visit [facility] [address] [place] [address] Pj Bledsoe, PT [address] [place] [address] CONSULT/WEAKNESS [facility] Comment on above: CONSULT/WEAKNESS Start: 09-28-2024 End: 09-28-2024 Patient encounter procedure 09/28/2024 2:15 PM EDT OT/PT/Speech Visit [facility] [address] [place] [address] Sarah Merchant, PT [address] [place] [address] CONSULT/WEAKNESS [facility] Comment on above: CONSULT/WEAKNESS Start: 08-30-2024 End: 08-30-2024 Patient encounter procedure 08/30/2024 3:00 PM EDT Office Visit Family [facility] [address] [place] [address] Michael Puga, DO [address] [place] [address] 6 month follow up [facility] Comment on above: 6 month follow up Start: 07-10-2024 End: 07-10-2024 Patient encounter procedure 07/10/2024 3:20 PM EDT Office Visit [facility] [address] [place] [address] Key Portillo, METAL BONDING WORKER.GERICARE AIDE [address] [place] [address] Requesting increase in Paxil [facility] Comment on above: Requesting increase in Paxil Start: 06-21-2024 End: 06-21-2024 Patient encounter procedure 06/21/2024 5:20 PM EST Office Visit [facility] [address] [place] [address] Michael Puga DO [address] [place] [address] 6 wk f/u labs and meds [facility] Comment on above: 6 wk f/u labs and meds Start: 05-26-2024 End: 08-25-2024 Comprehensive metabolic 2000 panel - Serum or Plasma COMPREHENSIVE METABOLIC PANEL Lab Routine Function kidney decreased Congestive heart failure, unspecified HF chronicity, unspecified heart failure type (HCC) Expected: 05/26/2024, Expires: 08/25/2024 [facility] Comment on above: Expected: 05/26/2024, Expires: Start: 05-26-2024 End: 08-25-2024 Natriuretic peptide.B prohormone N-Terminal [Mass/volume] in Serum or Plasma NT PRO BNP Lab Routine Function kidney decreased Congestive heart failure, unspecified HF chronicity, unspecified heart failure type (HCC) Expected: 05/26/2024, Expires: 08/25/2024 [facility] Work Phone: Comment on above: Expected: 05/26/2024, Expires: Start: 05-19-2024 End: 08-18-2024 CBC W Auto Differential panel - Blood COMPLETE BLOOD COUNT AND DIFFERENTIAL Lab Routine Congestive heart failure, unspecified HF chronicity, unspecified heart failure type (HCC) Function kidney decreased Expected: 05/19/2024, Expires: 08/18/2024 [facility] Comment on above: Expected: 05/19/2024, Expires: Start: 05-19-2024 End: 08-18-2024 Hepatic function 1999 panel - Serum or Plasma HEPATIC FUNCTION PNL Lab Routine Congestive heart failure, unspecified HF chronicity, unspecified heart failure type (HCC) Function kidney decreased Expected: 05/19/2024, Expires: 08/18/2024 [facility] Work Phone: Comment on above: Expected: 05/19/2024, Expires: Start: 05-19-2024 End: 08-18-2024 Natriuretic peptide.B prohormone N-Terminal [Mass/volume] in Serum or Plasma NT PRO BNP Lab Routine Congestive heart failure, unspecified HF chronicity, unspecified heart failure type (HCC) Function kidney decreased Expected: 05/19/2024, Expires: 08/18/2024 [facility] Comment on above: Expected: 05/19/2024, Expires: Start: 05-17-2024 End: 08-16-2024 Comprehensive metabolic 2000 panel - Serum or Plasma COMPREHENSIVE METABOLIC PANEL Lab STAT Function kidney decreased Congestive heart failure, unspecified HF chronicity, unspecified heart failure type (HCC) Expected: 05/17/2024, Expires: 08/16/2024 [facility] Work Phone: Comment on above: Expected: 05/17/2024, Expires: Start: 05-11-2024 End: 08-10-2024 Comprehensive metabolic 2000 panel - Serum or Plasma [facility] Comment on above: Expected: 05/11/2024, Expires: Start: 05-11-2024 End: 08-10-2024 Natriuretic peptide.B prohormone N-Terminal [Mass/volume] in Serum or Plasma [facility] Comment on above: Expected: 05/11/2024, Expires: Start: 05-11-2024 End: 08-10-2024 Thyrotropin [Units/volume] in Serum or Plasma [facility] Work Phone: Comment on above: Expected: 05/11/2024, Expires: Start: 05-11-2024 End: 08-10-2024 Thyroxine (T4) free [Mass/volume] in Serum or Plasma [facility] Comment on above: Expected: 05/11/2024, Expires: Start: 05-11-2024 End: 05-11-2024 Patient encounter procedure 05/11/2024 1:00 PM EST Office Visit [facility] [place] [address] [place] [address] Key Portillo, METAL BONDING WORKER.GERICARE AIDE [address] [facility] [address] [facility] Hosp f/u discharged 05-02-24. CHF [facility] [place] Comment on above: TCM. [facility] Hosp f/u discharged 05-02-24. C HF Start: 05-04-2024 End: 05-04-2024 Patient encounter procedure 05/04/2024 1:00 PM EST Office Visit [facility] [address] [place] [address] Key Portillo, METAL BONDING WORKER.GERICARE AIDE [address] [facility] [place] [address] right leg pain x 2 weeks [facility] Comment on above: right leg pain x 2 weeks Start: 05-03-2024 Advance Directive Discussion Advance Directive Discussion [facility] Start: 05-02-2024 Patient discharge [facility] Start: 05-01-2024 End: 05-01-2024 Patient encounter procedure 05/01/2024 2:15 PM EST OT/PT/Speech Visit [facility] [address] [place] [address] Sarah Merchant, PT [address] [place] [address] Right knee (referral in scanned docs) [facility] Comment on above: Right knee (referral in scanned docs) Start: 05-01-2024 Referral to service [facility] Start: 04-30-2024 End: 05-01-2024 [facility] Start: 04-30-2024 Dual pressure spontaneous ventilation support [facility] Start: 04-30-2024 Following clinical pathway protocol [facility] Start: 04-30-2024 Continuous pulse oximetry [facility] Start: 04-30-2024 Assessment of risk of venous thromboembolism [facility] Start: 04-30-2024 Elevation of affected extremity [facility] Start: 04-30-2024 Fall prevention [facility] Start: 04-30-2024 Inhalation therapy procedure [facility] Start: 04-30-2024 Insertion of catheter into peripheral vein [facility] Start: 04-30-2024 Introduction of urinary catheter [facility] Start: 04-30-2024 Measuring intake and output [facility] Start: 04-30-2024 Notification of physician [facility] Start: 04-30-2024 Oxygen therapy [facility] Start: 04-30-2024 Patient education [facility] Start: 04-30-2024 Patient referral to dietitian [facility] Start: 04-30-2024 Providing care according to standard [facility] Start: 04-30-2024 Provision of activity privileges [facility] Start: 04-30-2024 Referral to occupational therapist [facility] Start: 04-30-2024 Referral to service [facility] Start: 04-30-2024 Admission procedure [facility] Start: 04-27-2024 End: 04-27-2024 Patient encounter procedure 04/27/2024 11:40 AM EST Office Visit Family [facility] [address] [place] [address] Key Portillo, METAL BONDING WORKER.[facility] [address] [place] [address] right leg pain x 2 weeks [facility] Comment on above: right leg pain x 2 weeks Start: 04-20-2024 End: 04-20-2024 Patient encounter procedure [facility] Comment on above: Right knee (referral in scanned docs) Start: 04-18-2024 End: 04-18-2024 Patient encounter procedure 04/18/2024 1:30 PM EST OT/PT/Speech Visit [facility] [address] [place] [address] Sarah Merchant, PT [address] [place] [address] Right knee (referral in scanned docs) [facility] Comment on above: Right knee (referral in scanned docs) Start: 03-31-2024 End: 03-31-2024 Patient encounter procedure 03/31/2024 1:15 PM EST Appointment [facility] [address] [place] [address] Raymundo De León MD [address] [place] [address] [facility] Start: 03-31-2024 Subsequent hospital visit by physician 03/31/2024 10:10 AM EST Hospital Encounter [facility] [address] [place] [address] Raymundo De León MD [address] [place] [address] Yvonne Manley MD [address] [place] [address] Kelsea Mo APRN.JACKAROO Epigastric abdominal pain [R10.13] [facility] Comment on above: Epigastric abdominal pain [R10.13] Start: 03-27-2024 End: 03-27-2024 Anesthesia consultation 03/27/2024 2:20 PM EST PAT Pre Anesthesia [address] [place] [address] 1, [facility] [place] [address] [place] [id number] E[facility] Pre [facility] Comment on above: EGD Start: 03-23-2024 End: 03-23-2024 Patient encounter procedure 03/23/2024 12:45 PM EST OT/PT/Speech Visit [facility] [address] [place] [id number] Sarah Merchant, PT [address] [place], [place] [phone] Right knee (referral in scanned docs) [facility] Comment on above: Right knee (referral in scanned docs) Start: 03-20-2024 End: 03-20-2024 Patient encounter procedure 03/20/2024 2:15 PM EST OT/PT/Speech Visit [facility] [address] [place] [address] Sarah Merchant, PT [address] [place], [place] [phone] Right knee (referral in scanned docs) [facility] Comment on above: Right knee (referral in scanned docs) Start: 03-16-2024 End: 03-16-2024 Patient encounter procedure 03/16/2024 12:45 PM EST OT/PT/Speech Visit [facility] [address] [place], [place] [phone] Sarah Merchant, PT [address] [place], [place] [phone] Right knee (referral in scanned docs) [facility] Comment on above: Right knee (referral in scanned docs) Start: 03-14-2024 End: 03-14-2024 Patient encounter procedure 03/14/2024 10:00 AM EST OT/PT/Speech Visit [facility] [address] [place], [place] [phone] Joy Sun PRESERVATIVE FILLER MACHINE OPERATOR Right knee (referral in scanned docs) [facility] Comment on above: Right knee (referral in scanned docs) Start: 03-13-2024 End: 03-13-2024 Patient encounter procedure General Surgery Comment on above: Epigastric abdominal pain [R10.13] Epigastric abdominal pain [R10.13] - left VM stating she will be seeing Kimberlee and not Dr de león Start: 03-08-2024 End: 03-08-2024 Patient encounter procedure 03/08/2024 12:45 PM EST OT/PT/Speech Visit [facility] [address] [place] [address] Joy Sun, PRESERVATIVE FILLER MACHINE OPERATOR Right knee (referral in scanned docs) [facility] Comment on above: Right knee (referral in scanned docs) Start: 03-02-2024 End: 03-02-2024 Patient encounter procedure 03/02/2024 12:45 PM EDT OT/PT/Speech Visit [facility] [address] [place], [place] [phone] Sarah Merchant, PT [address] [place], [place] [phone] Right knee (referral in scanned docs) [facility] Comment on above: Right knee (referral in scanned docs) Start: 03-01-2024 End: 03-01-2024 Patient encounter procedure 03/01/2024 5:40 PM EDT Office Visit [facility] [place] [address] [place] [address] Michael Puga DO [address] [place] [address] 3 month follow up [facility] Comment on above: 3 month follow up Start: 02-17-2024 End: 02-17-2024 Patient encounter procedure 02/17/2024 3:45 PM EDT OT/PT/Speech Visit [facility] [address] [place] [address] Sarah Merchant, PT [address] [place], [place] [phone] Right knee (referral in scanned docs) [facility] Comment on above: Right knee (referral in scanned docs) Start: 02-14-2024 End: 02-14-2024 Patient encounter procedure 02/14/2024 1:30 PM EDT OT/PT/Speech Visit [facility] [address] [place] [address] Wilfred Mcclellan, PRESERVATIVE FILLER MACHINE OPERATOR [address] [place], [place] [phone] Right knee (referral in scanned docs) [facility] Comment on above: Right knee (referral in scanned docs) Start: 02-10-2024 End: 02-10-2024 Patient encounter procedure 02/10/2024 12:45 PM EDT OT/PT/Speech Visit [facility] [address] [place] [address] Sarah Merchant, PT [address] [facility], [place] [phone] Right knee (referral in scanned docs) [facility] Comment on above: Right knee (referral in scanned docs) Start: 02-07-2024 End: 02-07-2024 Patient encounter procedure 02/07/2024 2:15 PM EDT OT/PT/Speech Visit [facility] [address] [place] [address] Sarah Merchant, PT [address] [place], [place] [phone] Right knee (referral in scanned docs) [facility] Comment on above: Right knee (referral in scanned docs) Start: 02-03-2024 End: 02-03-2024 Patient encounter procedure 02/03/2024 3:45 PM EDT OT/PT/Speech Visit [facility] [address] [place] [address] Sarah Merchant, PT [address] [place], [place] [phone] Right knee (referral in scanned docs) [facility] Comment on above: Right knee (referral in scanned docs) Start: 01-31-2024 End: 01-31-2024 Patient encounter procedure 01/31/2024 2:15 PM EDT OT/PT/Speech Visit [facility] [address] [place] [address] Sarah Merchant, PT [address] [place], [place] [phone] Right knee (referral in scanned docs) [facility] Comment on above: Right knee (referral in scanned docs) Start: 01-26-2024 End: 01-26-2024 Patient encounter procedure 01/26/2024 3:00 PM EDT OT/PT/Speech Visit [facility] [address] [place] [address] Wilfred Mcclellan, PRESERVATIVE FILLER MACHINE OPERATOR [address] [facility], [place] [phone] Right knee (referral in scanned docs) [facility] Comment on above: Right knee (referral in scanned docs) Start: 01-18-2024 End: 01-18-2024 Patient encounter procedure 01/18/2024 1:30 PM EDT OT/PT/Speech Visit [facility] [address] [place] [address] Sarah Merchant, PT [address] [place], [place] [phone] RECHECK Right knee (referral in scanned docs) [facility] Comment on above: RECHECK Right knee (referral in scanned docs) Start: 01-17-2024 DIABETES SCREEN DIABETES SCREEN [facility] Start: 01-02-2024 Covid-19 Vaccine () Covid-19 Vaccine () [facility] Start: 01-02-2024 Covid-19 Vaccine () Covid-19 Vaccine () [facility] Start: 01-02-2024 Influenza vaccination Influenza Vaccine (#1) [facility] Start: 12-16-2023 End: 12-16-2023 Patient encounter procedure [facility] Comment on above: Right knee (referral in scanned docs) RECHECK Right knee ( referral in scanned docs) Start: 12-13-2023 End: 12-13-2023 Patient encounter procedure 12/13/2023 3:45 PM EDT OT/PT/Speech Visit [facility] [address] [place] [address] Sarah Merchant, PT [address] [place], [place] [phone] Right knee (referral in scanned docs) [facility] Comment on above: Right knee (referral in scanned docs) Start: 12-07-2023 End: 12-07-2023 Patient encounter procedure 12/07/2023 4:30 PM EDT OT/PT/Speech Visit [facility] [address] [place], [place] [phone] Wilfred Mcclellan, PRESERVATIVE FILLER MACHINE OPERATOR [address] [place], [place] [phone] Right knee (referral in scanned docs) [facility] Comment on above: Right knee (referral in scanned docs) Start: 12-02-2023 End: 12-02-2023 Patient encounter procedure 12/02/2023 3:45 PM EDT OT/PT/Speech Visit [facility] [address] [place] [address] Sarah Merchant, PT [address] [place], [place] [phone] Right knee (referral in scanned docs) [facility] Comment on above: Right knee (referral in scanned docs) Start: 12-01-2023 End: 12-01-2023 Patient encounter procedure 12/01/2023 1:20 PM EDT Office Visit [facility] [place] [address] [place] [address] Michael Puga DO [address] [facility], [place] [phone] follow up, review labs [facility] [place] Comment on above: follow up, review labs Start: 11-30-2023 End: 11-30-2023 Patient encounter procedure 11/30/2023 2:15 PM EDT OT/PT/Speech Visit [facility] [address] [place] [address] Sarah Merchant, PT [address] [place], [place] [phone] Right knee (referral in scanned docs) [facility] Comment on above: Right knee (referral in scanned docs) Start: 11-25-2023 End: 11-25-2023 Patient encounter procedure 11/25/2023 8:30 AM EDT OT/PT/Speech Visit [facility] [address] [place] [address] Sarah Merchant, PT [address] [place], [place] [phone] Right knee (referral in scanned docs) [facility] Comment on above: Right knee (referral in scanned docs) Start: 11-13-2023 End: 02-12-2024 CBC W Auto Differential panel - Blood COMPLETE BLOOD COUNT AND DIFFERENTIAL Lab Routine Primary hypertension Expected: 11/13/2023, Expires: 02/12/2024 [facility] Comment on above: Expected: 11/13/2023, Expires: Start: 11-13-2023 End: 02-12-2024 Comprehensive metabolic 2000 panel - Serum or Plasma COMPREHENSIVE METABOLIC PANEL Lab Routine Primary hypertension Expected: 11/13/2023, Expires: 02/12/2024 [facility] Work Phone: Comment on above: Expected: 11/13/2023, Expires: Start: 11-13-2023 End: 02-12-2024 Hemoglobin A1c in Blood HEMOGLOBIN A1C Lab Routine IFG (impaired fasting glucose) Expected: 11/13/2023, Expires: 02/12/2024 [facility] Comment on above: Expected: 11/13/2023, Expires: Start: 11-13-2023 End: 02-12-2024 Lipid 1996 panel - Serum or Plasma LIPID PANEL BASIC Lab Routine Primary hypertension Expected: 11/13/2023, Expires: 02/12/2024 [facility] Comment on above: Expected: 11/13/2023, Expires: Start: 11-13-2023 End: 02-12-2024 Thyroxine (T4) free [Mass/volume] in Serum or Plasma T4 FREE/FREE THYROXINE Lab Routine Subclinical hypothyroidism Expected: 11/13/2023, Expires: 02/12/2024 [facility] Comment on above: Expected: 11/13/2023, Expires: Start: 11-13-2023 End: 02-12-2024 Triiodothyronine (T3) [Mass/volume] in Serum or Plasma T3 Lab Routine Subclinical hypothyroidism Expected: 11/13/2023, Expires: 02/12/2024 [facility] Comment on above: Expected: 11/13/2023, Expires: Start: 10-14-2023 End: 01-13-2024 Thyrotropin [Units/volume] in Serum or Plasma THYROID STIMULATING HORMONE Lab Routine Subclinical hypothyroidism Expected: 10/14/2023, Expires: 01/13/2024 [facility] Comment on above: Expected: 10/14/2023, Expires: Start: 10-14-2023 End: 10-14-2023 Patient encounter procedure 10/14/2023 1:20 PM EDT Office Visit [facility] [address] [place] [address] Key Portillo APRN.GERICARE AIDE [address] [place] [address] Hospital Follow Up (TCM thru 10/15) [facility] Comment on above: Hospital Follow Up (TCM thru 10/15) Start: 10-06-2023 End: 01-05-2024 Comprehensive metabolic 2000 panel - Serum or Plasma COMPREHENSIVE METABOLIC PANEL Lab Routine Diarrhea, unspecified type Expected: 10/06/2023, Expires: 01/05/2024 [facility] Work Phone: Comment on above: Expected: 10/06/2023, Expires: Start: 08-05-2023 Covid-19 Vaccine () Covid-19 Vaccine () [facility] Start: 07-08-2023 End: 10-07-2023 Thyrotropin [Units/volume] in Serum or Plasma TSH BLD Lab Routine Thyroid disease Expected: 07/08/2023, Expires: 10/07/2023 [facility] Work Phone: Comment on above: Expected: 07/08/2023, Expires: 4 Start: 07-08-2023 End: 10-07-2023 Thyroxine (T4) free [Mass/volume] in Serum or Plasma T4 FREE/FREE THYROX Lab Routine Thyroid disease Expected: 07/08/2023, Expires: 10/07/2023 [facility] Work Phone: Comment on above: Expected: 07/08/2023, Expires: Start: 07-08-2023 End: 10-07-2023 Triiodothyronine (T3) Free [Mass/volume] in Serum or Plasma T3 FREE BLD Lab Routine Thyroid disease Expected: 07/08/2023, Expires: 10/07/2023 [facility] Work Phone: Comment on above: Expected: 07/08/2023, Expires: 4 Start: 06-04-2023 COVID-19 VACCINE (3 - Booster for Pfizer series) COVID-19 VACCINE (3 - Booster for Pfizer series) [facility] Comment on above: Postponed from 09/27/2020 (Declined at t his time) Start: 06-04-2023 COVID-19 VACCINE (3 - Pfizer series) COVID-19 VACCINE (3 - Pfizer series) [facility] Comment on above: Postponed from 09/27/2020 (Declined at t his time) Start: 06-04-2023 Urine microalbumin profile DTAP,TDAP,TD (2 - Tdap) [facility] Comment on above: Postponed from 08/31/2013 (Declined at t his time) Start: 05-03-2023 Advance Directive Discussion Advance Directive Discussion [facility] Start: 04-21-2023 ANNUAL PCP TEAM CHRONIC DISEASE VISIT ANNUAL PCP TEAM CHRONIC DISEASE VISIT [facility] Start: 04-21-2023 BP CONTROLLED (<130/80) BP CONTROLLED (<130/80) [facility] Start: 03-24-2023 End: 05-24-2023 CBC panel - Blood by Automated count CBC Lab Routine Primary hypertension Expected: 03/24/2023, Expires: 05/24/2023 [facility] Work Phone: Comment on above: Expected: 03/24/2023, Expires: 4 Start: 03-24-2023 End: 05-24-2023 Cobalamin (Vitamin B12) [Mass/volume] in Serum or Plasma VITAMIN B12 BLOOD Lab Routine Vitamin B12 deficiency Expected: 03/24/2023, Expires: 05/24/2023 [facility] Work Phone: Comment on above: Expected: 03/24/2023, Expires: 4 Start: 03-24-2023 End: 05-24-2023 Comprehensive metabolic 2000 panel - Serum or Plasma COMP METABOLIC PANEL Lab Routine Primary hypertension Expected: 03/24/2023, Expires: 05/24/2023 [facility] Work Phone: Comment on above: Expected: 03/24/2023, Expires: 4 Start: 03-24-2023 End: 05-24-2023 Hemoglobin A1c in Blood HGB A1C Lab Routine IFG (impaired fasting glucose) Expected: 03/24/2023, Expires: 05/24/2023 [facility] Work Phone: Comment on above: Expected: 03/24/2023, Expires: 4 Start: 03-24-2023 End: 05-24-2023 Thyrotropin [Units/volume] in Serum or Plasma TSH BLD Lab Routine Fatigue, unspecified type Obesity, Class II, BMI 35-39.9 IFG (impaired fasting glucose) Expected: 03/24/2023, Expires: 05/24/2023 [facility] Work Phone: Comment on above: Expected: 03/24/2023, Expires: 4 Start: 03-24-2023 End: 05-24-2023 Thyroxine (T4) free [Mass/volume] in Serum or Plasma T4 FREE/FREE THYROX Lab Routine Fatigue, unspecified type Obesity, Class II, BMI 35-39.9 IFG (impaired fasting glucose) Expected: 03/24/2023, Expires: 05/24/2023 [facility] Work Phone: Comment on above: Expected: 03/24/2023, Expires: 4 Start: 02-16-2023 ANNUAL PCP TEAM CHRONIC DISEASE VISIT ANNUAL PCP TEAM CHRONIC DISEASE VISIT [facility] Start: 02-16-2023 BP CONTROLLED (<130/80) BP CONTROLLED (<130/80) [facility] Start: 01-01-2023 Covid-19 Vaccine ( season) Covid-19 Vaccine () [facility] Start: 01-01-2023 Influenza vaccination [facility] Start: 12-16-2022 ANNUAL PCP TEAM CHRONIC DISEASE VISIT ANNUAL PCP TEAM CHRONIC DISEASE VISIT [facility] Start: 09-19-2022 End: 11-19-2022 25-hydroxyvitamin D3 [Mass/volume] in Serum or Plasma VITAMIN D 25 HYDROXY Lab Routine Vitamin D deficiency Expected: 09/19/2022, Expires: 11/19/2022 [facility] Work Phone: Comment on above: Expected: 09/19/2022, Expires: Start: 09-19-2022 End: 11-19-2022 Cobalamin (Vitamin B12) [Mass/volume] in Serum or Plasma VITAMIN B12 BLOOD Lab Routine Vitamin B12 deficiency Expected: 09/19/2022, Expires: 11/19/2022 [facility] Work Phone: Comment on above: Expected: 09/19/2022, Expires: 3 Start: 09-19-2022 End: 11-19-2022 Comprehensive metabolic 2000 panel - Serum or Plasma COMP METABOLIC PANEL Lab Routine Fatigue, unspecified type Expected: 09/19/2022, Expires: 11/19/2022 [facility] Work Phone: Comment on above: Expected: 09/19/2022, Expires: Start: 09-19-2022 End: 11-19-2022 Hemoglobin A1c in Blood HGB A1C Lab Routine IFG (impaired fasting glucose) Expected: 09/19/2022, Expires: 11/19/2022 [facility] Work Phone: Comment on above: Expected: 09/19/2022, Expires: 3 Start: 09-19-2022 End: 11-19-2022 Iron and Iron binding capacity panel - Serum or Plasma IRON + TIBC Lab Routine Iron deficiency Expected: 09/19/2022, Expires: 11/19/2022 [facility] Work Phone: Comment on above: Expected: 09/19/2022, Expires: 3 Start: 09-19-2022 End: 11-19-2022 Lipid 1996 panel - Serum or Plasma LIPID PANEL BASIC Lab Routine Hyperlipidemia, unspecified hyperlipidemia type Expected: 09/19/2022, Expires: 11/19/2022 [facility] Work Phone: Comment on above: Expected: 09/19/2022, Expires: 3 Start: 06-13-2022 ANNUAL PCP TEAM CHRONIC DISEASE VISIT ANNUAL PCP TEAM CHRONIC DISEASE VISIT [facility] Start: 06-04-2022 End: 08-04-2022 25-hydroxyvitamin D3 [Mass/volume] in Serum or Plasma [facility] Work Phone: Comment on above: Expected: 06/04/2022, Expires: Start: 06-04-2022 End: 08-04-2022 CBC W Auto Differential panel - Blood [facility] Work Phone: Comment on above: Expected: 06/04/2022, Expires: 3 Start: 06-04-2022 End: 08-04-2022 Cobalamin (Vitamin B12) [Mass/volume] in Serum or Plasma [facility] Work Phone: Comment on above: Expected: 06/04/2022, Expires: Start: 06-04-2022 End: 08-04-2022 Comprehensive metabolic 2000 panel - Serum or Plasma [facility] Work Phone: Comment on above: Expected: 06/04/2022, Expires: 3 Start: 06-04-2022 End: 08-04-2022 Ferritin [Mass/volume] in Serum or Plasma [facility] Work Phone: Comment on above: Expected: 06/04/2022, Expires: 3 Start: 06-04-2022 End: 08-04-2022 Hemoglobin A1c in Blood [facility] Work Phone: Comment on above: Expected: 06/04/2022, Expires: 3 Start: 06-04-2022 End: 08-04-2022 Iron and Iron binding capacity panel - Serum or Plasma [facility] Work Phone: Comment on above: Expected: 06/04/2022, Expires: 3 Start: 06-04-2022 End: 08-04-2022 Natriuretic peptide.B prohormone N-Terminal [Mass/volume] in Serum or Plasma [facility] Work Phone: Comment on above: Expected: 06/04/2022, Expires: 3 Start: 06-04-2022 End: 08-04-2022 Thyrotropin [Units/volume] in Serum or Plasma [facility] Work Phone: Comment on above: Expected: 06/04/2022, Expires: 3 Start: 05-03-2022 ADVANCE DIRECTIVE DISCUSSION ADVANCE DIRECTIVE DISCUSSION [facility] Start: 01-01-2022 Influenza vaccination INFLUENZA (#1) [facility] Start: 05-03-2021 ADVANCE DIRECTIVE DISCUSSION ADVANCE DIRECTIVE DISCUSSION [facility] Start: 01-02-2021 COVID-19 VACCINE (3 - Booster for Pfizer series) COVID-19 VACCINE (3 - Booster for Pfizer series) [facility] Start: 09-27-2020 COVID-19 VACCINE (3 - Booster for Pfizer series) COVID-19 VACCINE (3 - Booster for Pfizer series) [facility] Start: 03-04-2019 BP CONTROLLED (<130/80) BP CONTROLLED (<130/80) [facility] Start: 05-12-2017 FECAL OCCULT BLOOD FECAL OCCULT BLOOD [facility] Start: 05-06-2017 End: 05-06-2017 Appointment Appointment [facility] Work Phone: Start: 12-03-2016 End: 12-03-2016 Appointment Appointment [facility] Work Phone: Start: 12-03-2016 End: 12-03-2016 Follow Up Appt 6 months Follow Up Appt 6 months [facility] Work Phone: Start: 12-03-2016 End: 12-03-2016 Pacer Clinic [facility] Work Phone: Start: 10-22-2016 End: [...] Group Work Phone: Start: 06-03-2016 End: 06-03-2016 [facility] Work Phone: Start: 2016 RSV Vaccine (1 - 1-dose 75+ series) RSV Vaccine (1 - 1-dose 75+ series) [facility] Start: 04-15-2016 End: 04-15-2016 SHAVING MACHINE OPERATOR SHAVING MACHINE OPERATOR [facility] Work Phone: Start: 04-15-2016 End: 04-15-2016 Follow Up Appt 6 months Follow Up Appt 6 months [facility] Work Phone: Start: 12-02-2015 End: 04-06-2016 Follow Up Appt 3 months Follow Up Appt 3 months [facility] Work Phone: Start: 12-02-2015 End: 04-06-2016 [facility] Work Phone: Start: 08-30-2015 End: 08-30-2015 Follow Up Appt 6 months Follow Up Appt 6 months [facility] Work Phone: Start: 08-30-2015 End: 08-30-2015 Follow Up Appt 6 weeks Follow Up Appt 6 weeks [facility] Work Phone: Start: 08-30-2015 End: 08-30-2015 MMM MMM [facility] Work Phone: Start: 06-11-2015 End: 06-11-2015 24 hour holter monitor 24 hour holter monitor [facility] Work Phone: Start: 06-11-2015 End: 06-11-2015 Echocardiography Echocardiogram (complete) [facility] Work Phone: Start: 05-28-2015 End: 05-28-2015 *BMP *BMP [facility] Work Phone: Start: 05-28-2015 End: 05-28-2015 Carotid duplex Carotid duplex [facility] Work Phone: Start: 05-28-2015 End: 05-28-2015 Follow Up Appt 3 months Follow Up Appt 3 months [facility] Work Phone: Start: 05-28-2015 End: 08-16-2015 Follow Up Appt 6 months Follow Up Appt 6 months [facility] Work Phone: Start: 05-28-2015 End: 05-28-2015 MMM MMM [facility] Work Phone: Start: 05-28-2015 End: 08-16-2015 Pacer Clinic Pacer Clinic [facility] Work Phone: Start: 01-16-2015 SHINGRIX VACCINE (1 of 2) SHINGRIX VACCINE (1 of 2) [facility] Start: 01-16-2015 SHINGRIX VACCINE (2 of 3) SHINGRIX VACCINE (2 of 3) [facility] Start: 11-22-2014 End: 11-22-2014 SHAVING MACHINE OPERATOR SHAVING MACHINE OPERATOR [facility] Work Phone: Start: 11-22-2014 End: 11-22-2014 Electrocardiogram, complete EKG (In office) [facility] Work Phone: Start: 11-22-2014 End: 08-16-2015 Follow Up Appt 3 months Follow Up Appt 3 months [facility] Work Phone: Start: 11-22-2014 End: 11-22-2014 Follow Up Appt 6 months Follow Up Appt 6 months [facility] Work Phone: Start: 11-22-2014 End: 08-16-2015 Pacer Clinic [facility] Work Phone: Start: 07-25-2014 End: 11-07-2014 Follow Up Appt 6 months Follow Up Appt 6 months [facility] Work Phone: Start: 07-25-2014 End: 11-07-2014 Pacer Clinic Pac[facility] Clinic [facility] Work Phone: Start: 05-25-2014 End: 11-07-2014 Follow Up Appt 6 months Follow Up Appt 6 months [facility] Work Phone: Start: 05-25-2014 End: 05-25-2014 MMM MMM [facility] Work Phone: Start: 05-25-2014 End: 11-07-2014 Pacer Clinic [facility] Work Phone: Start: 01-26-2014 End: 11-07-2014 Follow Up Appt 6 months Follow Up Appt 6 months [facility] Work Phone: Start: 01-26-2014 End: 11-07-2014 Pacer Clinic Pacer Clinic [facility] Work Phone: Start: 11-22-2013 End: 11-22-2013 SHAVING MACHINE OPERATOR SHAVING MACHINE OPERATOR [facility] Work Phone: Start: 11-22-2013 End: 11-22-2013 Follow Up Appt 6 months Follow Up Appt 6 months [facility] Work Phone: Start: 10-25-2013 End: 11-22-2013 Follow Up Appt 3 months Follow Up Appt 3 months [facility] Work Phone: Start: 10-25-2013 End: 11-22-2013 Pacer Clinic Pacer Clinic [facility] Work Phone: Start: 08-31-2013 Urine microalbumin profile DTAP,TDAP,TD (2 - Tdap) [facility] Start: 08-16-2013 End: 08-16-2013 Follow Up Appt Other Follow Up Appt Other [facility] Work Phone: Start: 07-19-2013 End: 07-20-2013 *BMP *BMP [facility] Work Phone: Start: 07-19-2013 End: 07-20-2013 *CBC with Differential *CBC with Differential [facility] Work Phone: Start: 07-19-2013 End: 07-19-2013 Follow Up Appt 1 month Follow Up Appt 1 month [facility] Work Phone: Start: 07-19-2013 End: [...] Group Work Phone: Start: 05-24-2013 End: 05-24-2013 SHAVING MACHINE OPERATOR SHAVING MACHINE OPERATOR [facility] Work Phone: Start: 05-24-2013 End: 05-24-2013 Follow Up Appt 6 months Follow Up Appt 6 months [facility] Work Phone: Start: 05-24-2013 End: 07-18-2013 Follow Up Appt Other Follow Up Appt Other [facility] Work Phone: Start: 04-10-2013 End: 05-16-2013 Follow Up Appt 3 months Follow Up Appt 3 months [facility] Work Phone: Start: 04-10-2013 End: 05-16-2013 Pacer Clinic Pacer Clinic [facility] Work Phone: Start: 12-07-2012 End: 05-16-2013 Follow Up Appt 3 months Follow Up Appt 3 months [facility] Work Phone: Start: 12-07-2012 End: 05-16-2013 Pacer Clinic Pacer Clinic [facility] Work Phone: Start: 11-15-2012 End: 11-15-2012 Follow Up Appt 6 months Follow Up Appt 6 months [facility] Work Phone: Start: 11-15-2012 End: 11-15-2012 MMM MMM [facility] Work Phone: Start: 05-18-2012 End: [...] 6 months Follow Up Appt 6 months [facility] Work Phone: Start: 07-14-2011 End: 05-16-2013 Follow Up Appt 3 months Follow Up Appt 3 months [facility] Work Phone: Start: 05-05-2011 End: 05-07-2011 *BMP *BMP [facility] Work Phone: Start: 05-05-2011 End: 05-06-2011 aPTT *PTT-Partial Thromboplastin Time [facility] Work Phone: Start: 05-05-2011 End: 05-06-2011 aPTT Coag time (PPP) *PTT-Partial Thromboplastin Time [facility] Work Phone: Start: 05-05-2011 End: 05-06-2011 CBC W Auto Differential panel - Blood *CBC without Diff [facility] Work Phone: Start: 05-05-2011 End: 05-06-2011 Chest x-ray X-Ray, Chest, PA & Lateral [facility] Work Phone: Start: 05-05-2011 End: 05-06-2011 Coagulation factor induced.INR assay in platelet poor plasma *PT/INR [facility] Work Phone: Start: 05-05-2011 End: 05-07-2011 Electrocardiogram, complete EKG (In office) [facility] Work Phone: Start: 05-05-2011 End: 05-16-2013 Follow Up Appt Other Follow Up Appt Other [facility] Work Phone: Start: 05-05-2011 End: 05-06-2011 Left Heart Cath Left Heart Cath [facility] Work Phone: Start: 04-07-2011 End: 04-07-2011 Follow Up Appt 3 months Follow Up Appt 3 months [facility] Work Phone: Start: 04-02-2006 Medicare Annual Wellness Visit Medicare Annual Wellness Visit [facility] Start: 2001 RSV Vaccine (1 - 1-dose 60+ series) RSV Vaccine (1 - 1-dose 60+ series) [facility] Bacteria identified in Urine by Culture URINE CULTURE Microbiology Routine Urinary frequency 10/20/2021 4:08 PM EDT [facility] Work Phone: End: 06-04-2023 ECG COMPLETE ECG COMPLETE ECG Routine SOB (shortness of breath) on exertion 1 Occurrences starting 06/04/2022 until 06/04/2023 [facility] Work Phone: Comment on above: 1 Occurrences starting 06/04/2022 until 06/04/2023 ECG COMPLETE ECG COMPLETE ECG Fatigue, unspecified type SOB (shortness of breath) on exertion Bilateral leg edema 06/04/2022 3:25 PM EST [facility] End: 06-04-2023 Echocardiography ECHO Cardiology Routine SOB (shortness of breath) on exertion 1 Occurrences starting 06/04/2022 until 06/04/2023 [facility] Work Phone: Comment on above: 1 Occurrences starting 06/04/2022 until 06/04/2023 End: 12-18-2022 EGD DIAGNOSTIC EGD DIAGNOSTIC Endoscopy Routine Gastroesophageal reflux disease with esophagitis without hemorrhage 1 Occurrences starting 12/18/2021 until 12/18/2022 [facility] Work Phone: Comment on above: 1 Occurrences starting 12/18/2021 until 12/18/2022 End: 03-13-2025 EGD DIAGNOSTIC EGD DIAGNOSTIC Endoscopy Routine Epigastric abdominal pain Pulmonary hypertension (HCC) 1 Occurrences starting 03/13/2024 until 03/13/2025 [facility] Work Phone: Comment on above: 1 Occurrences starting 03/13/2024 until 03/13/2025 Glucose [Mass/volume ] in Serum or Plasma GLUCOSE, BLOOD (POC) Lab Routine Urinary frequency Glucosuria Ordered: 10/20/2021 [facility] Work Phone: Comment on above: Ordered: 10/20/2021 NM Heart Views W str ess and W radionuclide IV [facility] Noninvasive ear/puls e oximetry single deter NONINVASV OXYGEN SATUR;SINGLE Procedures Routine Congestive heart failure, unspecified HF chronicity, unspecified heart failure type (HCC) Obstructive lung disease (HCC) Chronic respiratory failure with hypoxia (HCC) Ordered: 09/07/2024 [facility] Work Phone: Comment on above: Ordered: 09/07/2024 Patient referral [facility] Work Phone: End: 01-11-2024 Polysomnogram POLYSOMNOGRAM (PSG) Procedures Routine Fatigue, unspecified type 1 Occurrences starting 01/11/2023 until 01/11/2024 [facility] Work Phone: Comment on above: 1 Occurrences starting 01/11/2023 until 01/11/2024 End: 01-21-2024 Radiologic exam chest 2 views XR CHEST 2V FRONTAL/LAT Radiology Routine WELCH (dyspnea on exertion) 1 Occurrences starting 12/22/2022 until 01/21/2024 [facility] Work Phone: Comment on above: 1 Occurrences starting 12/22/2022 until 01/21/2024 End: 01-21-2024 SPIROMETRY - BASELINE AND POST DILATOR SPIROMETRY - BASELINE AND POST DILATOR PFT Routine WELCH (dyspnea on exertion) 1 Occurrences starting 12/22/2022 until 01/21/2024 [facility] Work Phone: Comment on above: 1 Occurrences starting 12/22/2022 until 01/21/2024 SPIROMETRY - BASELIN E AND POST DILATOR SPIROMETRY - BASELINE AND POST DILATOR PFT Routine WELCH (dyspnea on exertion) 12/28/2022 2:06 PM EDT [facility] Work Phone: SURGICAL PATHOLOGY [facility] Work Phone: Comment on above: Release Upon Ordering for 1 Occurrences starting 01/08/2022, 1 completed SURGICAL PATHOLOGY [facility] Work Phone: Comment on above: Release Upon Ordering for 1 Occurrences starting 03/31/2024, 1 completed [facility] End: 12-30-2024 XR Chest PA and Lateral XR CHEST 2V FRONTAL/LAT Radiology Routine Rhonchi Acute bronchitis, unspecified organism 1 Occurrences starting 12/01/2023 until 12/30/2024 [facility] Work Phone: Comment on above: 1 Occurrences starting 12/01/2023 until 12/30/2024 End: 06-10-2025 XR Chest PA and Lateral XR CHEST 2V FRONTAL/LAT Radiology Routine Congestive heart failure, unspecified HF chronicity, unspecified heart failure type (HCC) Hospital discharge follow-up 1 Occurrences starting 05/11/2024 until 06/10/2025 [facility] Comment on above: 1 Occurrences starting 05/11/2024 until 06/10/2025 [facility] Immunizations Immunization Date Immunization Notes Care Provider Deric coburn 03-01-2024 pneumococcal Conjuga te, unspecified formulation Michael Puga DO Work Phone: [facility] Work Phone: 03-01-2024 influenza, high dose seasonal, preservative-free Michael Puga DO Work Phone: [facility] 03-01-2024 pneumococcal conjuga te (PCV20) vaccine, 20 valent (PREVNAR 20) Michael Puga DO Work Phone: [facility] 03-01-2024 influenza virus vacc ine, unspecified formulation Keydylon Portillo METAL BONDING WORKER.GERICARE AIDE Work Phone: [facility] 04-05-2023 COVID-19 vaccine, ag e 12+ yr, season ([place]) Michael Puga DO Work Phone: [facility] Work Phone: 04-05-2023 influenza (HD-IIV4) vaccine, age 65+ yr, high dose, quadrivalent, PF (FLUZONE HIGH-DOSE) Michael Puga DO Work Phone: [facility] Work Phone: 04-05-2023 influenza virus vacc ine, unspecified formulation Sarah Merchant PT Work Phone: [facility] 02-16-2022 influenza, high-dose , quadrivalent vaccine (FLUZONE HIGH DOSE QUADRIVALENT) Michael Puga DO Work Phone: [facility] Work Phone: 02-16-2022 influenza virus vacc ine, unspecified formulation Xr Mob Work Phone: [facility] 03-13-2021 influenza, high-dose , quadrivalent vaccine (FLUZONE HIGH DOSE QUADRIVALENT) Katia Garcia PA-C Work Phone: [facility] 01-11-2019 influenza, high dose seasonal, preservative-free Katia Garcia PA-C Work Phone: [facility] Work Phone: 12-24-2018 tetanus toxoid, redu alisa diphtheria toxoid, and acellular pertussis vaccine, adsorbed Dr. Michael Puga Work Phone: [facility] 02-21-2018 influenza, high dose seasonal, preservative-free Katia Garcia PA-C Work Phone: [facility] 03-15-2017 influenza, high dose seasonal, preservative-free Katia [place] PA-C Work Phone: [facility] Work Phone: 01-19-2017 influenza, injectabl e, quadrivalent, preservative free Dr. Michael Puga DO Work Phone: [facility] 01-19-2017 influenza, seasonal, injectable Dr. Michael Puga Work Phone: [facility] Work Phone: 05-06-2016 pneumococcal polysaccharide vaccine, 23 valent Katia Jose PA-C Work Phone: [facility] Work Phone: 03-09-2016 influenza, high dose seasonal, preservative-free Katia [place] PA-C Work Phone: [facility] Work Phone: 02-13-2016 influenza, high dose seasonal, preservative-free Katia Jose PA-C Work Phone: [facility] Work Phone: 02-01-[address] Michael Puga Work Phone: [facility] 03-11-2015 pneumococcal conjuga te vaccine, 13 valent Katia Jose PA-C Work Phone: [facility] 02-17-2015 influenza, high dose seasonal, preservative-free Katia Jose PA-C Work Phone: [facility] 11-21-2014 zoster vaccine, live Katia Jose PA-C Work Phone: [facility] Work Phone: 04-12-2006 influenza virus vacc ine, unspecified formulation Katia Jose PA-C Work Phone: [facility] Work Phone: 04-12-2006 pneumococcal polysaccharide vaccine, 23 valent Katia Jose PA-C Work Phone: [facility] Work Phone: 09-01-2003 diphtheria and tetan us toxoids, adsorbed for pediatric use Katia Garcia PA-C Work Phone: [facility] Work Phone: Payers Date Payer Category Payer Self-pay [id number] 2015 Private Health Insurance JENNIFER BARRY PPO [id number] 2015-Present [phone] [address] [place] [address] O [id number] 2015 Private Health Insurance [id number] 2006 Medicare MEDICARE MEDICAR E A AND B [id number] 2006-Present [phone] [address] [address] [place] [address] Medicare [id number] 2006 Medicare [id number] 2006 Medicare [id number] 2005 Private Health Insurance [id number] Unknown Unknown [id number] 2.16.840.1.898754.3.579. 2.462 Unknown [id number] 2.16.840.1.937829.3.579. 2.462 Unknown [id number] 2.16.840.1.637845.3.579. 2.462 Unknown [id number] 2.16.840.1.425526.3.579. 2.462 Unknown [id number] 2.16.840.1.379772.3.579. 2.462 Unknown [id number] 2.16.840.1.902762.3.579. 2.462 Unknown [id number] 2.16.840.1.308058.3.579. 2.462 Unknown [id number] 2.16.840.1.465836.3.579. 2.462 Unknown [id number] 2.16.840.1.004222.3.579. 2.462 Unknown [id number] 2.16.840.1.090978.3.579. 2.462 Unknown [id number] 2.16.840.1.194250.3.579. 2.462 Unknown [id number] 2.16.840.1.069553.3.579. 2.462 Unknown [id number] 2.840.1.054484.3.579. 2.462 Unknown [id number] 2.16.840.1.959882.3.579. 2.462 Unknown [id number] 2.16.840.1.126778.3.579. 2.462 Unknown [id number] 2.16.840.1.406159.3.579. 2.462 Unknown [id number] 2.16840.1.188605.3.579. 2.462 Unknown [id number] 2.16.840.1.344403.3.579. 2.462 Unknown [id number] 2.16.840.1.996755.3.579. 2.462 Unknown [id number] 2.16.840.1.866804.3.579. 2.462 Unknown [id number] 2.16.840.1.661165.3.579. 2.462 Unknown [id number] 2.16.840.1.231811.3.579. 2.462 Unknown [id number] 2.16.840.1.551063.3.579. 2.462 Unknown [id number] 2.16.840.1.331478.3.579. 2.462 Unknown [id number] 2.16.840.1.781747.3.579. 2.462 Unknown [id number] 2.16.840.1.860152.3.579. 2.462 Unknown [id number] 2.16.840.1.612069.3.579. 2.462 Unknown [id number] 2.16.840.1.403979.3.579. 2.462 Unknown [id number] 2.16.840.1.866073.3.579. 2.462 Unknown [id number] 2.16.840.1.589887.3.579. 2.462 Unknown [id number] 2.16.840.1.426745.3.579. 2.462 Unknown [id number] 2.16.840.1.493333.3.579. 2.462 Unknown [id number] 2.16.840.1.206032.3.579. 2.462 Social History Date Type Detail Facility [facility] Start: 06-09-2021 Tobacco smokin g consumption unknown [facility] Start: 12-16-2021 End: 04-30-2024 Tobacco smoking status NHIS Never smoked tobacco [facility] Start: 06-13-2021 End: 08-17-2024 Alcohol intake Ex-drinker (finding) [facility] Start: 12-12-2018 History SDOH Food Worry 1 [facility] Start: 12-12-2018 History SDOH Transpo rt Med 2 [facility] Start: 1940 Sex Assigned At Not on file [facility] Start: 08-23-2021 End: 02-16-2022 Exposure to SARS-CoV-2 (event) Not sure [facility] Start: 05-06-2017 None [place] [facility] Start: 12-24-2018 With Family [facility] Start: 1940 Sex Assigned At Female W [facility] Start: 12-16-2021 Tobacco use and exposure Smokeless tobacco non-user [facility] Work Phone: Start: 12-22-2022 End: 01-26-2024 History of Social function [facility] Start: 12-22-2022 End: 01-26-2024 Tobacco use panel [facility] Adult Depression Screening Assessment 0 [facility] (I/We) worried wheth er (my/our) food would run out before (I/we) got money to buy more. Never true [facility] Start: 07-14-2024 End: 07-20-2024 Sex Female (finding) [facility] Medical Equipment Procedure Code Equipment Code Equipment Origin al Text Equipment Identifier Dates ([id number]) Dual-chamber implantable pacemaker, rate-responsive ()[id number] FDA Start: 06-09-2021 Use with blood glucose test 2 times daily, Insulin Dep? No [id number] Start: 08-30-2024 Use with blood glucose test 2 times daily. Insulin Dep? No [id number] Start: 08-30-2024 Goals Date Patient Goal Desired Activity /State Personal health goal Functional Status Date Assessment Result Facility 05-02-2024 Functional status Ambulates;Chair [facility] Work Phone: 11-28-2013 Are you deaf, or do you have serious difficulty hearing No 11/28/2013 4:55 PM EDT Rain 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), FILLER SHREDDING MACHINE LOADER No [facility] 11-28-2013 Are you blind, or do you have serious difficulty seeing, even when wearing glasses No 11/28/2013 4:55 PM EDRain Ray Lpn (Hist), FILLER SHREDDING MACHINE LOADER No [facility] 11-28-2013 Do you have serious difficulty walking or climbing stairs No 11/28/2013 4:55 PM EDRain Ray Lpn (Hist), FILLER SHREDDING MACHINE LOADER No [facility] 11-28-2013 Do you have difficul ty dressing or bathing No 11/28/2013 4:55 PM EDRain Ray Lpn (Hist), FILLER SHREDDING MACHINE LOADER No [facility] 11-28-2013 Because of a physica l, mental, or emotional condition, do you have difficulty doing errands alone such as visiting a physician's office or shopping No 11/28/2013 4:55 PM EDT Rain 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), FILLER SHREDDING MACHINE LOADER No [facility] Mental Status Date Assessment Result Facility 05-02-2024 Cognitive function Voice[facility]Name [facility] Work Phone: 11-28-2013 Because of a physica l, mental, or emotional condition, do you have serious difficulty concentrating, remembering, or making decisions No 11/28/2013 4:55 PM EDT Rain 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), FILLER SHREDDING MACHINE LOADER No [facility] Clinical Notes 10-17-2020 to 11-27-2024 Telephone Encounter [...] Yvonne Gomez November 27, 2024 12:12 PM [facility] 11-27-2024 Miscellaneous Notes Formattin g of this [...] 2024 12:12 PM documented in this encounter [facility] 11-13-2024 Telephone encount er Note Call placed to patient and notified of below with verbalized understanding. Amanda Pratt RN [facility] 11-13-2024 Miscellaneous Notes Formattin g of this [...] Authorizing Provider: MICHAEL PUGA DO Kell with [facility] calls to let provider know that [...] Amanda Pratt RN documented in this encounter [facility] 11-13-2024 Telephone encount er Note Please have [...] evening daily Authorizing Provider: MICHAEL PUGA DO [facility] 11-11-2024 Telephone encount er Note Prescription Refill [...] Sherry Layne November 11, 2024 10:43 AM [facility] 11-11-2024 Miscellaneous Notes Formattin g of this [...] 2024 10:43 AM documented in this encounter [facility] 11-10-2024 Telephone encount er Note Kell with [facility] calls to let provider know that [...] will respond once able. Amanda Pratt RN [facility] 11-02-2024 Evaluation note Diagnosis Onset Date Resolution WELCH (dyspnea on exertion) acute November 02, 2024 9:16am group home current use of amiodarone acute November 02, 2024 9:16am Pulmonary hypertension acute November 02, 2024 9:16am Essential (primary) hypertension chronic November 02, 2024 9:16am History of permanent cardiac pacemaker placement June 09, 2021 chronic November 02, 2024 9:16am Paroxysmal atrial fibrillation chronic November 02, 2024 9:16am [facility] Work Phone: [phone]) 799-508807-02-2025 Telephone encounter Note* Telephone Encounter - Marisol Cano LPN - 11/01/2024 12:48 PM EDT Called spoke with pt she states tomorrow has a appointment with heart doctor then few days with lung doctor she states if does not get answers from them she will make appointment then and come in. [facility]07-02-2025 Miscellaneous Notes* Telephone Encounter - Marisol Cano [...] as mentioned below. Thank you, Key Portillo APRN.GERICARE AIDE * Telephone Encounter - Key Portillo APRN.CARMELINA - 11/01/2024 9:22 AM EDT ----- Message from Sarah Merchant, PT sent at 10/27/2024 6:59 PM EDT ----- Hi Dr Puga, We're seeing Michael for PT (she was referred by [facility] [...] walking). She has f/u appointments with her retail project merchandiser & blow mold machine operator next month but I think she needs to see someone soon for the Shortness of Breath. I also think a spine/pain mgmt consult would be a good idea for the chronic/worsening low back pain. Thanks, Sarah Merchant, PT documented in this encounterCincinnati [facility]07-02-2025 Telephone encounter Note * Telephone Encounter - Key Portillo APRN.CARMELINA - 11/01/2024 9:22 AM EDT Please see if patient is willing to make appointment due to Shortness of Breath as mentioned below. Thank you, Key Portillo APRN.GERICARE AIDE [facility]07-02-2025 Telephone encounter Note* Telephone Encounter - Key Portillo APRN.CNP - 11/01/2024 9:22 AM EDT ----- Message from Sarah Merchant PT sent at 10/27/2024 6:59 PM EDT ----- Hi Dr Puga, We're seeing [facility] for PT (she was referred by [facility]) and we've also seen her here inthe past for ortho/mobility issues. She's been reporting increased Shortness of Breath with minimalactivity which I definitely noticed today (I encouraged her to go to ER prn but she doesn't think it's necessary). She's also reporting increased low back pain (mostly with standing & walking). She has f/u appointments with her retail project merchandiser & blow mold machine operator next month but I think she needs to see someone soon for the Shortness of Breath. I also think a spine/pain mgmt consult would be a good idea for the chronic/worsening low back pain. Thanks, Sarah Merchant PT [facility]07-01-2025 Radiology Diagnostic study note [facility] Services [address] [place], [place] [address] Chest PA and Lateral MR#: [id number] Acct: [id number] Name: MICHAEL MEIER Rep #: [id number] : 1940 F 84 From: Chris Bradley MD PCP: Dr. Michael Puga DO Status: RE G CLI Study:Chest PA and Lateral Date of Exam: 10/31/24 Exam# [id number] Ordering Dr: Anabel Roberson PA PROCEDURE: CHEST [...] pulmonary process, no interval change Reading Location: [id number] CC: Dr. Michael Puga DO; NIDA Katz ~ It Systems Engineer: Signed [facility]06-27-2025 NoteHNO ID: [id number] Author: SARAH MERCHANT, FRANTZ Service: ? Author [...] back brace etc. she's never seen a managed care specialist, only ortho for hips. she also reports 10# weight gain over past 2 months due to steroids. has has f/u with blow mold machine operator end of October (which she may try to move up) retail project merchandiser in mid October, PCP in December. she recently got a lightweight rollator which is easier to fold etc but she still has trouble getting it in AND out of her car. she typically has freinds go with her to Dr gavin AND they help her walk in to [...] 1244 Session Stop Time : 1331 [facility] History of Present illness Narrative* Sarah Merchant, [...] back brace etc. she's never seen a managed care specialist, only ortho for hips. she also reports 10# weight gain over past 2 months due to steroids. has has f/u with blow mold machine operator end of October (which she may try to move up) retail project merchandiser in mid October, PCP in December. she [...] 1331 Sarah Merchant PT documented in this encounterCincinnati Va Medical Center06-26-2025 Telephone encounter Note * Telephone Encounter - Katia Marcano RN - 10/26/2024 8:39 AM EDT Pt called and is notified of providers message and instructions. Pt voices understanding, she states she will add the Tylenol. Katia Marcano RN [facility]06-26-2025 Miscellaneous Notes* Telephone Encounter - Katia Marcano [...] advise. Tameka Marin RN documented in this encounterCincinnati Va Medical Center06-25-2025 Telephone encounter Note * Telephone Encounter - Michael Puga, - 10/25/2024 10:09 PM EDT No this dose can't be increased. We can consider changing the meloxicam to an alternative such as Celebrex 100 mg twice a day with food as needed. Or she can add on 500 mg of Tylenol every 6 hours for pain Michael Puga DO [facility]06-25-2025 Telephone encounter Note* Telephone Encounter - Tameka [...] short term. Please advise. Tameka Marin RN [facility]06-09-2025 NoteHNO ID: [id number] Author: JOY SUN PTA Service: ? Author Type: Quality Assurance Monitor Body Type: Progress Notes Filed: 10/09/2024 13:37 Note [...] 8 UE 8 lvl 2 6 minutes PRESERVATIVE FILLER MACHINE OPERATOR in constant attendence assessing current status [...] Session Stop Time : 1328 Joy Sun [facility] History of Present illness Narrative* Joy Sun PRESERVATIVE FILLER MACHINE OPERATOR - 10/09/2024 1:34 PM EDT Episode [...] 8 UE 8 lvl 2 6 minutes PRESERVATIVE FILLER MACHINE OPERATOR in constant attendence assessing current status [...] 1328 Joy Sun PTA documented in this encounterCincinnati Va Medical Center06-02-2025 NoteHNO ID: [id number] Author: PJ BLEDSOE PT Service: ? Author [...] sets 9: standing at rollator b ue test carrier slight march in place r to l to r x 5 then b heel raises x 5 x 3 sets 10: standing wt shifts b ue test carrier at rollator wt shift r l lat [...] Session Stop Time : 1530 Pj Bledsoe [place]06-02-2025 History of Present illness Narrative* Pj Bledsoe, [...] sets 9: standing at rollator b ue test carrier slight march in place r to l to r x 5 then b heel raises x 5 x 3 sets 10: standing wt shifts b ue test carrier at rollator wt shift r l lat [...] 1530 Pj Bledsoe PT documented in this encounterCincinnati Va Medical Center05-29-2025 Telephone encounter Note * Telephone Encounter - Marisol Cano LPN - 09/28/2024 4:00 PM EDT Spoke with Kell gave information provided. She voices understanding. She will have pt call in for her appointment she does not know pts schedule. [facility]05-29-2025 Miscellaneous Notes* Telephone Encounter - Marisol Cano [...] 1 month ago. Thank you, Key Portillo APRN.GERICARE AIDE * Telephone Encounter - Nadine Cooln LPN - 09/28/2024 1:42 PM EDT Kell from [facility] calling to report patient tremor is worse [...] the office. Please advise documented in this encounterCincinnati Va Medical Center05-29-2025 NoteHNO ID: [id number] Author: SARAH MERCHANT, FRANTZ Service: ? Author [...] increase T-score by a minimum 5 points. [place] in home exercise program. Patient will demonstrate [...] Planned: 12 Planned Treatment Interventions: Therapeutic exercise (72118), Neuromuscular re-education (22955), Therapeutic activities (84204), Self-usp management (62028), Gait Training (89054), Patient/Family/Caregiver Education, General Conditioning PLAN FOR NEXT [...] Lives With: Self/Alone Assistance Available: Community-Based Health Dermatology TeacherOLU (currently getting HH Nsg, has friends that [...] (within normal limits) 32 (more content not included)...[facility]05-29-2025 History of Present illness Narrative* Sarah [...] increase T-score by a minimum 5 points. [place] in home exercise program. Patient will demonstrate [...] Planned: 12 Planned Treatment Interventions: Therapeutic exercise (13544), Neuromuscular re- education (91589), Therapeutic activities (68849), Self-usp management (03739), Gait Training (83746), Patient/Family/Caregiver Education, General Conditioning PLAN FOR NEXT [...] Lives With: Self/Alone Assistance Available: Community-Based Health Dermatology TeacherOLU (currently getting HH Nsg, has friends that [...] 1459 Sarah Merchant, PT documented in this encounterCincinnati [facility] Medical Center05-29-2025 Telephone encounter Note * Telephone Encounter - Key Portillo APRN.CNP - 09/28/2024 3:01 PM EDT Pt needs appointment to assess this. This was not mentioned in recent office visit 1 month ago. Thank you, Key Portillo APRN.CNP [facility]05-29-2025 Telephone encounter Note* Telephone Encounter - Nadine Colon LPN - 09/28/2024 1:42 PM EDT Kell from [facility] calling to report patient tremor is worse [...] is out of the office. Please advise [facility]05-12-2025 Telephone encounter Note* Telephone Encounter - Delisa [...] Delisa Gomez September 11, 2024 9:22 AM [facility]05-12-2025 Miscellaneous Notes* Telephone Encounter - Delisa Townsend [...] Delisa Gomez September 11, 2024 9:22 AM documented in this encounterCincinnati Va Medical Center05-09-2025 Telephone encounter Note * Telephone Encounter - Michael Puga DO - 09/08/2024 5:06 PM EDT Noted Michael Puga DO [facility]05-09-2025 Miscellaneous Notes* Telephone Encounter - Michael Puga [...] for oxygen. Pt reports she was in [facility] about a yr ago with pneumonia, and [...] guidelines. Please phone Jackelin with any questions: [phone] extension [phone] documented in this encounterCincinnati Va Medical Center05-09-2025 Telephone encounter Note * Telephone Encounter - [...] not using the oxygen. Amanda Pratt RN [facility]05-09-2025 Telephone encounter Note* Telephone Encounter - Loli Adamson RN - 09/08/2024 1:32 PM EDT Phoned pt and explained what [employer] reported needed to be done per Medicare guidelines for her to qualify for oxygen. Pt reports she was in [facility] about a yr ago with pneumonia, and [...] thinks she should do. Please advise pt. [facility]05-09-2025 Telephone encounter Note* Telephone Encounter - Michael Puga DO - 09/08/2024 12:37 PM EDT Noted, is she willing to do this testing? Michael Puga DO [facility]05-09-2025 Telephone encounter Note* Telephone Encounter - Loli Adamson RN - 09/08/2024 10:41 AM EDT Jackelin- [facility]- reports since pt has dx JOSE on CPAP, per medicare guidelines, pt would have to have sleep titration study to qualify for oxygen. States pt would not qualify for oxygen- with overnight pulse oximetry test per medicare guidelines. Please phone Jackelin with any questions: [phone] extension [phone] [facility]05-09-2025 Telephone encounter Note* Telephone Encounter - Jacque Machuca MA - 09/08/2024 8:52 AM EDT Faxed Jacque Machuca MA [facility]05-09-2025 Miscellaneous Notes* Telephone Encounter - Jacque Machuca [...] 09/07/2024 11:16 AM EDT Petra NOLASCO from [facility] calls and is asking status of request. [...] advise, Bhavna Arauz RN documented in this encounterCincinnati [facility] Medical Center05-09-2025 Telephone encounter Note * Telephone Encounter - Asia Rosales APRN.CNP - 09/08/2024 8:22 AM EDT It's in the outbox in my office. Asia Rosales APRN.CNP [facility]05-09-2025 Telephone encounter Note* Telephone Encounter - Jacque Machuca MA - 09/08/2024 8:15 AM EDT Please print script Jacque Machuca MA [facility]05-08-2025 Telephone encounter Note* Telephone Encounter - Asia Rosales APRN.CNP - 09/07/2024 1:32 PM EDT I placed the order best I know how to. Please fax per below request. Asia Rosales APRN.CARMELINA [facility]05-08-2025 Telephone encounter Note* Telephone Encounter - Bhavna Arauz RN - 09/07/2024 11:16 AM EDT Petra NOLASCO from [facility] calls and is asking status of request. When order is placed, please fax orderto [employer]. Please place order for nighttime pulsometry test and fax to [employer]. Please review and advise, Bhavna Arauz RN [facility]05-07-2025 Telephone encounter Note* Telephone Encounter - Julianna Cano LPN - 09/06/2024 1:12 PM EDT Pt. informed and would like to get the nighttime Oximetry. [facility]05-06-2025 Telephone encounter Note* Telephone Encounter - Michael Puga DO - 09/05/2024 5:35 PM EDT Please clarify with more information What recommendation? Would need to have nighttime oximetry testing for me to order oxygen by insurance Michael Puga DO [facility]05-06-2025 Telephone encounter Note* Telephone Encounter - Bhavna Arauz RN - 09/05/2024 11:46 AM EDT Patient calls and states that palliative care nurse had just visited patient. Palliative nurse had told patient that patient would benefit to have oxygen at night. Patient state that nurse had told patient to call office about this. Please review and advise, Bhavna Arauz RN [facility]04-30-2025 Instructions* Patient Instructions* Michael Puga DO - [...] alive, yogurt, cottage cheese Relion meter at [facility] if insurance doesn't want to cover rx. [facility] Address: [address] [place] [address] documented in this encounterCincinnati Va Medical Center04-30-2025 NoteHNO ID: [id number] Author: MICHAEL PUGA DO Service: ? Author Type: Physician Type: Progress Notes Filed: 08/30/2024 22:10 Note Text: CC: Michael Meier is a [...] ACETBLR/PROX FEM PROSTC AGRFT/ALGRFT Left 07/2016 [facility] CONDYLEANDPLATU MEDIALANDLAT COMPARTMENTS 11/15/2009 Knee replacement, total [facility] ARTHRP E CONDYLEANDPLATU MEDIALANDLAT COMPARTMENTS 12/30/2009 Right knee replaced COLONOSCOPY FLX DX W/COLLJ SPEC WHEN PFRMD 06/29/2017 Colonoscopy EGD 10/17/2020 EGD W/O [facility] SPEC VARICIES INJ 01/08/2022 EGD W/O [facility] SPEC VARICIES INJ 03/31/2024 [place] ESOPHAGOGASTRODUODENOSCOPY TRANSORAL [...] Rash Demerol [Meperidine* Vomiting (more content not included)...[facility]04-30-2025 History of Present illness Narrative* PugaMichael, - [...] COMPARTMENTS 11/15/2009 Knee replacement, total -Left - [facility] ARTHRP KNE CONDYLE&PLATU MEDIAL&LAT COMPARTMENTS 12/30/2009 Right knee replaced COLONOSCOPY FLX DX W/COLLJ SPEC WHEN PFRMD 06/29/2017 Colonoscopy EGD 10/17/2020 EGD W/O [facility] SPEC VARICIES INJ 01/08/2022 EGD W/O [facility] SPEC VARICIES INJ 03/31/2024 [place] ESOPHAGOGASTRODUODENOSCOPY TRANSORAL [...] dyspnea Follow up with Palliative care and Computer Methods Analyst. 5. Obstructive lung disease (HCC) - ICD9: [...] dyspnea Follow up with Palliative care and Computer Methods Analyst. Michael Puga DO Return if no improvement. Follow up with Michael Puga DO. To ER if develops chest pain, shortness of breath. Discussed risks, benefits, alternatives, and potential side effects of medications. Patient/Guardian expressed understanding and agreed with the plan. See patient instructions. Michael Puga DO [address] [place] [address] documented in this encounterCincinnati [facility] Center04-18-2025 Telephone encounter Note * Telephone Encounter - Asia Rosales APRN.CNP - 08/18/2024 2:37 PM EDT I saw her in the office yesterday 08/17 and these concerns were addressed. Asia Rosales APRN.CNP [facility] Work Phone: [phone]) 161-364804-18-2025 Miscellaneous Notes* Telephone Encounter - Asia Rosales APRN.CNP - 08/18/2024 2:37 PM EDT I saw her in the office yesterday 08/17 and these concerns were addressed. Asia Rosales APRN.CNP * Telephone Encounter - oLli Adamson RN - 08/16/2024 1:28 PM EDT Petra- - [facility]- reports she is seeing patient and spoke [...] nurse phoned patient and scheduled appt with Digital Performance Analyst for tomorrow to see if Digital Performance Analyst can increase patient's paxil. documented in this encounterCincinnati [facility] Medical Center04-17-2025 NoteHNO ID: [id number] Author: ASIA ROSALES APRN.CNP Service: ? Author [...] ACETBLR/PROX FEM PROSTC AGRFT/ALGRFT [facility] 11/15/2009 Knee replacement, total Left [facility] CONDYLEANDPLATU MEDIALANDLAT COMPARTMENTS 12/30/2009 Right knee replaced COLONOSCOPY FLX DX W/COLLJ SPEC WHEN PFRMD 06/29/2017 Colonoscopy EGD 10/17/2020 EGD W/O [facility] SPEC VARICIES INJ 01/08/2022 EGD W/O [facility] SPEC VARICIES INJ 03/31/2024 [place] ESOPHAGOGASTRODUODENOSCOPY TRANSORAL [...] capsule by mouth once (more content not included)...[facility]04-17-2025 History of Present illness Narrative* Asia Rosales, METAL BONDING WORKER.GERICARE AIDE - 08/17/2024 3:22 PM EDT Chief Complaint [...] COMPARTMENTS 11/15/2009 Knee replacement, total -Left - [facility] ARTHRP KNE CONDYLE&PLATU MEDIAL&LAT COMPARTMENTS 12/30/2009 Right knee replaced COLONOSCOPY FLX DX W/COLLJ SPEC WHEN PFRMD 06/29/2017 Colonoscopy EGD 10/17/2020 EGD W/O [facility] SPEC VARICIES INJ 01/08/2022 EGD W/O [facility] SPEC VARICIES INJ 03/31/2024 [place] ESOPHAGOGASTRODUODENOSCOPY TRANSORAL [...] 08/18/2024 Time: 8:26 AM documented in this encounterCincinnati [facility] Medical Center04-16-2025 Telephone encounter Note * Telephone Encounter - Loli Adamson RN - 08/16/2024 1:28 PM EDT Petra- - [facility]- reports she is seeing patient and spoke [...] nurse phoned patient and scheduled appt with Digital Performance Analyst for tomorrow to see if Digital Performance Analyst can increase patient's paxil. [facility]03-07-2025 Telephone encounter Note* Telephone Encounter - Amanda [...] to do anything. Protocols used: Medication Question [id number] [facility]03-07-2025 Miscellaneous Notes* Telephone Encounter - Amanda Pratt [...] to do anything. Protocols used: Medication Question [id number] documented in this encounterCincinnati Va Medical Center03-03-2025 NoteHNO ID: [id number] Author: PJ BLEDSOE PT Service: ? Author Type: Physical Therapist Type: Progress Notes Filed: 07/03/2024 08:48 Note Text: 07/03/2024 [facility] PHYSICAL THERAPY [...] did not attend further PT. [facility]so[facility], [place]02-26-2025 Telephone encounter Note* Telephone Encounter - Renea Wallace MA - 06/28/2024 11:38 AM EST Printed telephone encounter with cover sheet & faxed to Dr. Hickey [phone]. Advised on cover sheet to respond with blow mold machine operator's recommendations. Will wait for fax back. Renea Wallace MA [facility]02-26-2025 Miscellaneous Notes* Telephone Encounter - Renea Wallace MA - 06/28/2024 11:38 AM EST Printed telephone encounter with cover sheet & faxed to Dr. Hickey [phone]. Advised on cover sheet to respond with blow mold machine operator's recommendations. Will wait for fax back. Renea Wallace MA * Telephone Encounter - Michael Puga DO - 06/28/2024 10:37 AM EST Please call her blow mold machine operator office at [facility] and see if they are concerned with [...] reports provider was going to check with [facility] about taking it since it can cause SOB. Please review and advise, Amanda Pratt RN documented in this encounterCincinnati Va Medical Center02-26-2025 Telephone encounter Note * Telephone Encounter - Michael Puga DO - 06/28/2024 10:37 AM EST Please call her blow mold machine operator office at [facility] and see if they are concerned with her shortness of breath and respirator symptoms potentially being secondary to SE from Amiodarone and if any options to change this anti arrhythmic on their end? Michael Puga DO [facility]02-25-2025 NoteHNO ID: [id number] Author: MICHAEL PUGA DO Service: ? Author [...] and albuterol. She has been seen by Quantitative Analyst Marketing as well as Dr. Hickey/Computer Methods Analyst at [facility] for follow up after discharge home. She [...] COMPARTMENTS 11/15/2009 Knee replacement, total -Left - [facility] ARTHRP KNE CONDYLEANDPLATU MEDIALANDLAT COMPARTMENTS 12/30/2009 Right knee replaced COLONOSCOPY FLX DX W/COLLJ SPEC WHEN PFRMD 06/29/2017 Colonoscopy EGD 10/17/2020 EGD W/O [facility] SPEC VARICIES INJ 01/08/2022 EGD W/O [facility] SPEC VARICIES INJ 03/31/2024 [place] ESOPHAGOGASTRODUODENOSCOPY TRANSORAL [...] Zithromax [Azithrom* Intolerance Social (more content not included)...[facility]02-25-2025 History of Present illness Narrative* Michael Puga, [...] and albuterol. She has been seen by Quantitative Analyst Marketing as well as Dr. Hickey/Computer Methods Analyst at [facility] for follow up after discharge home. She [...] Knee replacement, total -Left - [facility] ARTHRP KNE CONDYLE&PLATU MEDIAL&LAT COMPARTMENTS 12/30/2009 Right knee replaced COLONOSCOPY FLX DX W/COLLJ SPEC WHEN PFRMD 06/29/2017 Colonoscopy EGD 10/17/2020 EGD W/O [facility] SPEC VARICIES INJ 01/08/2022 EGD W/O [facility] SPEC VARICIES INJ 03/31/2024 [place] ESOPHAGOGASTRODUODENOSCOPY TRANSORAL DIAGNOSTIC 11/29/2000 EGD ESOPHAGOGASTRODUODENOSCOPY TRANSORAL [...] I27.20 See above F/u with Pulm and Computer Methods Analyst Multifactorial, recently diagnosed - NEBULIZER ACCESSORIES KIT - NEBULIZER 4. WELCH (dyspnea on exertion) - ICD9: 786.09, ICD10: R06.09 See above F/u with Pulm and Computer Methods Analyst Multifactorial, CHF and obstructive lung disease have been recently diagnosed - NEBULIZER ACCESSORIES KIT - NEBULIZER 5. Function kidney decreased - ICD9: 593.9, ICD10: N28.9 stable 6. 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 Arthritis, multiple joint involvement - ICD9: 716.99, ICD10: M12.9 Stable, no falls Michael Puga DO Return if no improvement. Follow up with Michael uPga DO. To ER if develops chest pain, shortness of breath. Discussed risks, benefits, alternatives, and potential side effects of medications. Patient/Guardian expressed understanding and agreed with the plan. See patient instructions. Michael Puga DO [address] [place] [address] documented in this encounterCincinnati [facility] Medical Center02-24-2025 Telephone encounter Note * Telephone Encounter - Amanda Pratt RN - 06/26/2024 2:42 PM EST Patient calls to let provider know that she didn't start the Advair Diskus d/t side effects and thepulmonary testing didn't show asthma or COPD per patient. Patient also asking about amiodarone. Doesn't look like it is ordered by provider but patient reports provider was going to check with [facility] about taking it since it can cause SOB. Please review and advise, Amanda Pratt RN [facility]02-04-2025 Telephone encounter Note* Telephone Encounter - Jacque Machuca MA - 06/06/2024 4:35 PM EST Pt informed, verbalized understanding Jacque Machuca MA [facility]02-04-2025 Miscellaneous Notes* Telephone Encounter - Jacque Machuca [...] Pt calls for lab results done at [facility] on 06/02/24. Results are scanned in the lab chart.. Constance Ervin LPN documented in this encounterCincinnati Va Medical Center02-04-2025 Telephone encounter Note * Telephone Encounter - Michael Puga DO - 06/06/2024 4:28 PM EST Please inform patient that her BUN is slightly high, creatinine is normal. She needs to increase her fluid/water intake. Also her AST and ALT liver enzyme labs are slightly high- this CMP lab needs to be rechecked in 1 month Michael Puga DO [facility]02-04-2025 Telephone encounter Note* Telephone Encounter - Constance Ervin LPN - 06/06/2024 11:52 AM EST Pt calls for lab results done at [facility] on 06/02/24. Results are scanned in the lab chart.. Constance Ervin LPN [facility]01-29-2025 Telephone encounter Note* Telephone Encounter - Key Portillo APRN.CARMELINA - 05/31/2024 10:44 AM EST Noted. Thank you, Key Portillo APRN.GERICARE AIDE [facility]01-29-2025 Miscellaneous Notes* Telephone Encounter - Key Portillo APRN.GERICARE AIDE - 05/31/2024 10:44 AM EST Noted. Thank you, Key Portillo APRN.GERICARE AIDE * Telephone Encounter - Amanda Pratt RN - 05/31/2024 10:07 AM EST Qing with [facility] [facility] calls in regards to below. CMP was not completed. Re-faxed ordered to [facility] lab and Qing will add a nurse visit for this week to collect specimen as soon as possible. Amanda Pratt RN * Telephone Encounter - Key Portlilo APRN.CARMELINA - 05/31/2024 7:36 AM EST I don't see CMP results either. Can we call [facility] and confirm this was drawn. If not, have her get itdone. Thank you, Key Portillo APRN.GERICARE AIDE * Telephone Encounter - Loli Adamson RN - 05/30/2024 8:26 AM EST Pt reports she had a CMP done at [facility] on 05/25/24 to check her kidneys and glucose. We received a BNP and CBC from [facility] under labs. Do not see a CMP. Patient asking Key to review and advise. documented in this encounterC[facility]01-29-2025 Telephone encounter Note * Telephone Encounter - Amanda Pratt RN - 05/31/2024 10:07 AM EST Qing with [facility] calls in regards to below. CMP was not completed. Re-faxed ordered to [facility] lab and Qing will add a nurse visit for this week to collect specimen as soon as possible. Amanda Pratt, RN [facility]01-29-2025 Telephone encounter Note* Telephone Encounter - Key Portillo APRN.CARMELINA - 05/31/2024 7:36 AM EST I don't see CMP results either. Can we call [facility] and confirm this was drawn. If not, have her get itdone. Thank you, Key Portillo APRN.GERICARE AIDE [facility]01-28-2025 Telephone encounter Note* Telephone Encounter - Loli Adamson RN - 05/30/2024 8:26 AM EST Pt reports she had a CMP done at [facility] on 05/25/24 to check her kidneys and glucose. We received a BNP and CBC from [facility] under labs. Do not see a CMP. Patient asking Key to review and advise. [facility]01-23-2025 Telephone encounter Note* Telephone Encounter - Marisol Cano LPN - 05/25/2024 10:15 AM EST Left detailed message on confidential voice mail. Also left out number for any questions. [facility]01-23-2025 Miscellaneous Notes* Telephone Encounter - Marisol Cano LPN - 05/25/2024 10:15 AM EST Left detailed message on confidential voice mail. Also left out number for any questions. * Telephone Encounter - Key Portillo APRN.CARMELINA - 05/25/2024 10:00 AM EST I would like patient to take medication and then recheck BP. BP was WNL at appointment on 05/11. I see from discharge instructions from [facility] that she was taking HCTZ at that [...] 9:25 AM EST Bhavna MAKI CM with [facility] called in and reports Pt had been taken off her Hydrochlorothiazide perCardiology for a while, but the last time she was in the hospital she was put back on 12.5 mg. She states the Pt is going to need a script called in if she is to be taking them to [facility].I told her I didn't see the [...] Please call and advise. documented in this encounterCincinnati [facility] Center01-23-2025 Telephone encounter Note * Telephone Encounter - Key Portillo APRN.CNP - 05/25/2024 10:00 AM EST I would like patient to take medication and then recheck BP. BP was WNL at appointment on 05/11. I see from discharge instructions from [facility] that she was taking HCTZ at that time. I would recommend staying on HCTZ regimen at this. Rx sent to pharmacy. Does she still have cards appointment with Dr. Hickey on 06/01 -- if so, they can decide if they wantto keep her on this medication or not at that time. Thank you, Key Portillo APRN.GERICARE AIDE The following approved medication requests have been transmitted electronically. Requested Prescriptions Signed Prescriptions Disp Refills hydroCHLOROthiazide 12.5 mg capsule 90 capsule 0 Sig: Take 1 capsule by mouth once daily. Authorizing Provider: KEY PORTILLO APRN.GERICARE AIDE [facility]01-23-[facility] Telephone encounter Note* Telephone Encounter - Katia Marcano RN - 05/25/2024 9:25 AM EST Bhavna MAKI CM with [facility] called in and reports Pt had been taken off her Hydrochlorothiazide perCardiology for a while, but the last time she was in the hospital she was put back on 12.5 mg. She states the Pt is going to need a script called in if she is to be taking them to [facility].I told her I didn't see the [...] labs this morning. Please call and advise. [facility]01-17-[facility] Telephone encounter Note* Telephone Encounter - Julianna Cano LPN - 05/19/2024 2:43 PM EST Pt. informed. [facility]01-17-2025 Miscellaneous Notes* Telephone Encounter - Julianna Moreno LPN - 05/19/2024 2:43 PM EST Pt. informed. * Telephone Encounter - Key Portillo APRN.GERICARE AIDE - 05/19/2024 2:39 PM EST Please let patient know that lab work results look much much better! Kidney function is improving drastically. I want her to continue to stay off of the lasix and repeat labs 1 more time in 1 week. Without the lasix her BNP remains stable which is also a good sign. Thank you, Key Portillo APRN.GERICARE AIDE * Telephone Encounter - Chloe Castro LPN - 05/19/2024 12:21 PM EST Pt calling for results of lab work she had done in her home yesterday, Results are I Epic. Please advise pt. Chloe Castro LPN documented in this encounterCincinnati [facility] Medical Center01-17-2025 Telephone encounter Note * Telephone Encounter - [...] a good sign. Thank you, Key Portillo APRN.GERICARE AIDE [facility]01-17-2025 Telephone encounter Note* Telephone Encounter - Chloe Castro LPN - 05/19/2024 12:21 PM EST Pt calling for results of lab work she had done in her home yesterday, Results are I Epic. Please advise pt. Chloe Castro LPN [facility]01-16-2025 Telephone encounter Note* Telephone Encounter - Key Portillo APRN.GERICARE AIDE - 05/18/2024 10:50 AM EST Perfect! Thank you. Key Portillo APRN.GERICARE AIDE [facility]01-16-2025 Miscellaneous Notes* Telephone Encounter - Key Portillo APRN.GERICARE AIDE - 05/18/2024 10:50 AM EST Perfect! Thank you. Key Portillo APRN.GERICARE AIDE * Telephone Encounter - Tameka Marin RN - 05/18/2024 10:43 AM EST Bhavna with [facility] calling in and states she was able to draw all labs needed today. Tameka Marin, GLYNN * Telephone Encounter - Key Portillo APRN.GERICARE AIDE - 05/18/2024 10:42 AM EST Most important is CMP to have drawn if able. Agree with below. Pt needs to discontinue lasix all together. This was ordered by [facility] after recent admission for new onset CHF exacerbation. Initially ordered for 40 mg daily, I decreased to 20 mg daily after kidney function was so poor and told pt to repeat labs in 5 days with plan to discontinue all together if swelling and weight gain remained stable with decreased. Thank you, Key Portillo APRN.GERICARE AIDE * Telephone Encounter - Katia Marcano RN - 05/18/2024 9:59 AM EST Bhavna MAKI [facility] called in and reports Pt isn't going [...] Verbalizes understanding. Pt is scheduled to see [facility] on 06/01/24. Per Alondra Portillo's [...] if she can. Pt will go to [place] and get it drawn in the morning. [...] LPN - 05/17/2024 9:46 AM EST Phoned [facility] pharmacy\ with clarification on current meds. Spironolactone 25 mg daily was prescribed by the [facility] also hydralazine 25 mg was prescribed by [facility]. Lasix 20 mg was just prescribed by Key Portillo, then Lasix 40 mg was prescribed by [facility] May 02. Left message with Bhavna [facility] about above information. Please review and advise further. Marcie Rodriguez LPN * Telephone Encounter - Michael Puga DO - 05/17/2024 9:02 AM EST Please clarify with pharmacy and patient her current diuretic/BLOOD PRESSURE medications that she is picking up and taking * Telephone Encounter - Amanda Pratt RN - 05/16/2024 10:19 AM EST Bhavna with [facility] calls to report duplicate therapy between lasix and spironolactone and lasix and hydralazine. Bhavna is asking if provider wants all medications continued. Hydralazine and Spironolactone are on current medication list but prescription not sent to pharmacy. Please review and advise. Bhavna is requesting a call back at [phone]. Amanda Pratt RN documented in this encounterCincinnati [facility] Center01-16-2025 Telephone encounter Note * Telephone Encounter - Tameka Marin RN - 05/18/2024 10:43 AM EST Bhavna with [facility] calling in and states she was able to draw all labs needed today. Tameka Marin RN [facility]01-16-2025 Telephone encounter Note* Telephone Encounter - Key Portillo APRN.CARMELINA - 05/18/2024 10:42 AM EST Most important is CMP to have drawn if able. Agree with below. Pt needs to discontinue lasix all together. This was ordered by [facility] after recent admission for new onset CHF exacerbation. Initially ordered for 40 mg daily, I decreased to 20 mg daily after kidney function was so poor and told pt to repeat labs in 5 days with plan to discontinue all together if swelling and weight gain remained stable with decreased. Thank you, Key Portillo APRN.GERICARE AIDE [facility]01-16-20[facility] Telephone encounter Note* Telephone Encounter - Ktaia Marcano RN - 05/18/2024 9:59 AM EST Bhavna MAKI [facility] called in and reports Pt isn't [...] what labs she was able to drawn. [facility]01-16-2025 Telephone encounter Note* Telephone Encounter - Sultana Catalan RN - 05/18/2024 9:50 AM EST Pt would like a call back as soon as possible after her labs are resulted. [facility]01-15-2025 Telephone encounter Note* Telephone Encounter - Michael Puga DO - 05/17/2024 8:46 PM EST Order placed for CMP Michael Puga DO [facility]01-15-2025 Telephone encounter Note* Telephone Encounter - [...] 5-7 days. Pended order for repeat CMP. [facility]01-15-2025 Telephone encounter Note* Telephone Encounter - Sultana Catalan RN - 05/17/2024 6:39 PM EST Pt returned the call and appt made with Dr. Puga for 520 pm on 06/21/24. Pt reminded to stop Lasix and make sure to get labs drawn in AM. [facility]01-15-2025 Telephone encounter Note* Telephone Encounter - Sultana Catalan RN - 05/17/2024 6:20 PM EST LM for pt to return the call as pt needs appt set up for around 06/22/24 which would be 6 wk f/u. Reinforce to pt to stop Lasix and get labs drawn in the AM. [facility]01-15-2025 Telephone encounter Note* Telephone Encounter - Michael Puga DO - 05/17/2024 6:11 PM EST Agree with need for lab work Agree with need for follow up in Primary care but would recommend that this visit is after the visit in Cardiology Michael Puga DO [facility]01-15-2025 Telephone encounter Note* Telephone Encounter [...] Verbalizes understanding. Pt is scheduled to see [facility] on 06/01/24. Per Alondra Portillo's OV note on 05/11/24, pt was to schedule a 6 wk follow up which is not scheduled. Does pt need to come to PCP office in addition to [facility] appt? Pt due for labwork as labs drawn on 05/11/24 showed significant decrease in kidney function. Asked ptto get it drawn in the morning if she can. Pt will go to [place] and get it drawn in the morning. [facility]01-15-2025 Telephone encounter Note* Telephone Encounter - Michael Puga DO - 05/17/2024 12:31 PM EST Please clarify what her edema of her legs is looking like? This was assessed by Key and not myself. I Don't want her to be on the spironolactone and the lasix. Recommend stopping the lasix if her edema is improved Michael Puga DO [facility]01-15-2025 Telephone encounter Note* Telephone Encounter - Marcie Rodriguez LPN - 05/17/2024 9:46 AM EST [facility] on current meds. Spironolactone 25 mg daily was prescribed by the [facility] also hydralazine 25 mg was prescribed by [facility]. Lasix 20 mg was just prescribed by Key Portillo, then Lasix 40 mg was prescribed [address] [facility] May 02. Left message with Bhavna [facility] about above information. Please review and advise further. Marcie Rodriguez LPN [facility]01-15-2025 Telephone encounter Note* Telephone Encounter - Michael Puga DO - 05/17/2024 9:02 AM EST Please clarify with pharmacy and patient her current diuretic/BLOOD PRESSURE medications that she is picking up and taking [facility]01-14-2025 Telephone encounter Note* Telephone Encounter - Amanda Pratt, GLYNN - 05/16/2024 10:19 AM EST Bhavna with [facility] calls to report duplicate therapy between lasix and spironolactone and lasix and hydralazine. Bhavna is asking if provider wants all medications continued. Hydralazine and Spironolactone are on current medication list but prescription not sent to pharmacy. Please review and advise. Bhavna is requesting a call back at [phone]. Amanda Pratt RN [facility]01-10-2025 Telephone encounter Note* Telephone Encounter - Key Portillo APRN.CARMELINA - 05/12/2024 2:22 PM EST Agree with below. We are repeating BNP lab work in 5-7 days as well to check for this. Thank you, Key Portillo APRN.GERICARE AIDE [facility]01-10-2025 Miscellaneous Notes* Telephone Encounter - Key Portillo APRN.CARMELINA - 05/12/2024 2:22 PM EST Agree with below. We are repeating BNP lab work in 5-7 days as well to check for this. Thank you, Key Portillo APRN.GERICARE AIDE * Telephone Encounter - Sultana Catalan RN [...] e. Pt verbalizes understanding. documented in this encounterCincinnati [facility] Center01-10-2025 Telephone encounter Note * Telephone Encounter - [...] at that vernell e. Pt verbalizes understanding. [facility]01-10-2025 Telephone encounter Note* Telephone Encounter - Jacque Machuca MA - 05/12/2024 1:04 PM EST Pt informed Jacque Machuca MA [facility]01-10-2025 Miscellaneous Notes* Telephone Encounter - Jacque Machuca [...] yesterday in appointment but nothing was at [facility] when she went. * Telephone Encounter [...] you, Key Portillo APRN.CARMELINA documented in this encounterCincinnati [facility] Medical Center01-10-2025 Telephone encounter Note * Telephone Encounter - [...] was identified. 05/12/2024 by Key Portillo APRN.CARMELINA [facility]01-10-2025 Telephone encounter Note* Telephone Encounter - Marisol Cano LPN - 05/12/2024 12:43 PM EST Spoke with pt gave information provided. Pt voices understanding. She states she spoke with you about some ativan yesterday in appointment but nothing was at [facility] when she went. [facility]01-10-2025 Telephone encounter Note* Telephone Encounter - [...] with decreasing lasix. Thank you, Key Portillo APRN.GERICARE AIDE [facility]01-09-2025 History of Present illness Narrative* Key Portillo APRN.GERICARE AIDE - 05/11/2024 1:00 PM EST Chief Complaint Patient presents with: Transition Of Care: Was i wfor chf flae was discharged on 05/02/24 HPI Michael Meier is a 84 year old female who presents here today for Above Complaints. Michael is an established patient of Dr. Edd DO. Concerns today... Hospital discharge -- [facility] hospital admission from 04/30-05/02 d/t hypoxia and [...] COMPARTMENTS 11/15/2009 Knee replacement, total -Left - [facility] ARTHRP KNE CONDYLE&PLATU MEDIAL&LAT COMPARTMENTS 12/30/2009 Right knee replaced COLONOSCOPY FLX DX W/COLLJ SPEC WHEN PFRMD 06/29/2017 Colonoscopy EGD 10/17/2020 EGD W/O [facility] SPEC VARICIES INJ 01/08/2022 EGD W/O [facility] SPEC VARICIES INJ 03/31/2024 Lito ESOPHAGOGASTRODUODENOSCOPY TRANSORAL [...] agreeable to treatment plan. Key Abrams APRN.CNP [id number] [place] [id number] documented in this encounterCincinnati Va Medical Center01-09-2025 NoteHNO ID: [id number] Author: KEY PORTILLO APRN.CNP Service: ? Author [...] Edd DO. Concerns today... Hospital discharge -- [facility] hospital admission from 04/30-05/02 d/t hypoxia and [...] ACETBLR/PROX FEM PROSTC AGRFT/ALGRFT Left 07/2016 ARTHRP [facility] CONDYLEANDPLATU MEDIALANDLAT COMPARTMENTS 11/15/2009 Knee replacement, total -[facility] ARTHRP E CONDYLEANDPLATU MEDIALANDLAT COMPARTMENTS 12/30/2009 Right knee replaced COLONOSCOPY FLX DX W/COLLJ SPEC WHEN PFRMD 06/29/2017 Colonoscopy EGD 10/17/2020 EGD W/O [facility] SPEC VARICIES INJ 01/08/2022 EGD W/O [facility] SPEC VARICIES INJ 03/31/2024 Lito ESOPHAGOGASTRODUODENOSCOPY TRANSORAL [...] Shake well before use (more content not included)...[facility]01-06-2025 Telephone encounter Note* Telephone Encounter - Key Portillo APRN.CNP - 05/08/2024 10:47 AM EST Noted. Will address then. Thank you, Key Portillo APRN.GERICARE AIDE [facility]01-06-2025 Miscellaneous Notes* Telephone Encounter - Key Portillo APRN.CNP - 05/08/2024 10:47 AM EST Noted. Will address then. Thank you, Key Portillo APRN.CNP * Telephone Encounter - Michael Puga DO - 05/08/2024 10:36 AM EST Will have her discuss with Key at office visit Michael Puga DO * Telephone Encounter - Amanda Pratt RN - 05/08/2024 8:59 AM EST Marifer with [facility] calls to let provider know that patient is having increasing pain with RLS especially at night. Marifer asking if provider would order medication. Patient not currently taking any medication for RLS. Patient previously scheduled for hospital follow up on 05/11/2024 with Key Portillo. Amanda Pratt RN documented in this encounterCincinnati [facility] Center01-06-2025 Telephone encounter Note * Telephone Encounter - Michael Puga DO - 05/08/2024 10:36 AM EST Will have her discuss with Key at office visit Michael Puga DO [facility]01-06-2025 Telephone encounter Note* Telephone Encounter - Amanda Pratt RN - 05/08/2024 8:59 AM EST Marifer with [facility] calls to let provider know that patient is having increasing pain with RLS especially at night. Marifer asking if provider would order medication. Patient not currently taking any medication for RLS. Patient previously scheduled for hospital follow up on 05/11/2024 with Key Portillo. Amanda Pratt RN [facility]01-03-2025 Telephone encounter Note* Telephone Encounter - Michael Puga DO - 05/05/2024 4:40 PM EST Noted Michael Puga DO [facility]01-03-2025 Miscellaneous Notes* Telephone Encounter - Michael Puga DO - 05/05/2024 4:40 PM EST Noted Michael Puga DO * Telephone Encounter - Katia Marcano RN - 05/05/2024 3:58 PM EST Sergio PT with [facility] called in and reports they will be seeing Pt twice a week for 3 weeks for functional mobility training. documented in this encounterCincinnati [facility] Center01-03-2025 Telephone encounter Note * Telephone Encounter - Katia Marcano RN - 05/05/2024 3:58 PM EST Sergio PT with [facility] called in and reports they will be seeing Pt twice a week for 3 weeks for functional mobility training. [facility]01-03-2025 Telephone encounter Note* Telephone Encounter - Jacque Machuca MA - 05/05/2024 8:54 AM EST Suha Machuca MA [facility]01-03-2025 Miscellaneous Notes* Telephone Encounter - Jacque Machuca MA - 05/05/2024 8:54 AM EST Suha Machuca MA * Telephone Encounter - Michael Puga DO - 05/05/2024 8:36 AM EST Ok with orders Michael Puga DO * Telephone Encounter - Aly Tolentino LPN - 05/04/2024 2:24 PM EST Suha from [facility] calling with plan of care. Only need to call her back if pcp not agreeable with orders. They will be seeing pt 1x wk for 1 wk then 2xs wk for 3 wks then 1x wk for 1 wk for disease and medication education. Aly Tolentino LPN documented in this encounterCincinnati [facility] Center01-03-2025 Telephone encounter Note * Telephone Encounter - Michael Puga DO - 05/05/2024 8:36 AM EST Ok with orders Michael Puga DO [facility]01-02-2025 NoteHNO ID: [id number] Author: Loli ADAMSON RN Service: ? Author Type: Registered Nurse Type: Progress Notes Filed: 05/04/2024 14:41 Note Text: TRANSITION CARE MANAGEMENT (TCM) INITIAL CONTACT Heater Room Helper Outreach Provider Action/FYI: Pt reports [facility] is going to be visiting pt for PT OT SN Initial contact with patient post discharge, spoke to patient. Patient identified by name and . TRANSITION CARE MANAGEMENT INITIAL OUTREACH DOCUMENTATION: 05/04/2024 Date of Outreach: Outreach Attempt 1: Contact Made Date of Discharge 05/02/2024 SUMMARY: -Pt discharged from [facility] on 05-02-24. -Admitted for: CHF Do you [...] Yes [facility] History of Present illness Narrative* Loli Adamson RN - 05/04/2024 2:31 PM EST TRANSITION CARE MANAGEMENT (TCM) INITIAL CONTACT [facility] Room Helper Outreach Provider Action/FYI: Pt reports [facility] is going to be visiting pt for PT OT SN Initial contact with patient post discharge, spoke to patient. Patient identified by name and . TRANSITION CARE MANAGEMENT INITIAL OUTREACH DOCUMENTATION: 05/04/2024 Date of Outreach: Outreach Attempt 1: Contact Made Date of Discharge 05/02/2024 SUMMARY: -Pt discharged from [facility] on 05-02-24. -Admitted for: CHF Do you [...] recent hospitalization: Care Everywhere documented in this encounterCincinnati [facility]01-02-2025 Telephone encounter Note * Telephone Encounter - Aly Tolentino LPN - 05/04/2024 2:24 PM EST Suha from [facility] calling with plan of care. Only need to call her back if pcp not agreeable with orders. They will be seeing pt 1x wk for 1 wk then 2xs wk for 3 wks then 1x wk for 1 wk for disease and medication education. Aly Tolentino LPN [facility]01-02-2025 Telephone encounter Note* Telephone Encounter - Milvia [...] 08/30/2024 Please advise. Thank you. Milvia Howard. [facility]01-02-2025 Miscellaneous Notes* Telephone Encounter - Milvia Howard [...] Thank you. Milvia Howard. documented in this encounterCincinnati Va Medical Center01-02-2025 NotePatient Outreach (FAMPWS) MICHAEL MEIER ([id number]) 1940 F Date Time Provider Department 05/04/24 MICHAEL PUGA During your visit today, we recorded the following information about you: Loli Adamson RN 05/04/2024 2:41 PM Signed TRANSITION CARE MANAGEMENT (TCM) INITIAL CONTACT [facility] Room Hel[facility] Outreach Provider Action/FYI: Pt reports [facility] is going to be visiting pt for PT OT SN Initial contact with patient post discharge, spoke to patient. Patient identified by name and . TRANSITION CARE MANAGEMENT INITIAL OUTREACH DOCUMENTATION: 05/04/2024 Date of Outreach: Outreach Attempt 1: Contact Made Date of Discharge 05/02/2024 SUMMARY: -Pt discharged from [facility] on 05-02-24. -Admitted for: CHF Do you [...] Date Reviewed: 04/10/2024 Reviewed by: Sharon Jarrett APRN.GERICARE AIDE - Fully Assessed Reason for Visit: Transition [...] 01/20/2007 03/11/2015 SOLAR LENGINES///DYSCHR (more content not included)...[facility] 05-02-2024 [facility] Medical Records Department [address] [place] [id number] Discharge Summary 05/02/24 1106 MR#: [id number] Acct: [id number] Name: MICHAEL MEIER Rep #: [id number] : [id number] 84 From: Jonny Vicente MD PCP: Dr. Michael Puga DO Status:ADM IN Location: ICU [place] [address] Providers Date of Admission: 04/30/24 Primary Care [...] Low Dose Aspirin) 81 mg PO QD Insight Direct (ServiceCEO) #90 tabs 12/27/18 coenzyme Q10 100 mg [...] on GFR trending who presents to the [facility] ED on 04/30/24 with history of increasing [...] TSH mildly (more content not included)...[facility]12-30-2024 Telephone encounter Note* Telephone Encounter - Julianna Cano LPN - 05/01/2024 4:41 PM EST [facility] informed message left on . [facility]12-30-2024 Miscellaneous Notes* Telephone Encounter - Julianna Moreno LPN - 05/01/2024 4:41 PM EST [facility] informed message left on VM. * Telephone Encounter - Nunu Gonzalez PA-C - 05/01/2024 4:03 PM EST Verbal order okay for PCP to follow for HH. Nunu Gonzalez PA-C * Telephone Encounter - Constance Ervin LPN - 05/01/2024 2:19 PM EST Larissa with [facility] HH calls to report pt is currently in the hospital with heart failure exacerbation.Pt will most likely be discharged 05/03/24. Pt has orders for PT, OT, and Detention. Larissa is requesting VO that pcp will follow pt while in HH. Call Larissa with VO from pcp. Constance Ervin LPN documented in this encounterCincinnati [facility] Center12-30-2024 Telephone encounter Note * Telephone Encounter - Nunu Gonzalez PA-C - 05/01/2024 4:03 PM EST Verbal order okay for PCP to follow for HH. Nunu Gonzalez PA-C [facility]12-30-2024 Telephone encounter Note* Telephone Encounter - Constance Ervin LPN - 05/01/2024 2:19 PM EST Larissa with [facility] HH calls to report pt is currently in the hospital with heart failure exacerbation.Pt will most likely be discharged 05/03/24. Pt has orders for PT, OT, and Detention. Larissa is requesting VO that pcp will follow pt while in HH. Call Larissa with VO from pcp. Constance Ervin LPN 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 Aly Tolentino LPN [facility]12-23-2024 Miscellaneous Notes* Telephone Encounter - Aly Tolentino [...] Portillo. Aly Tolentino LPN documented in this encounterCincinnati Va Medical Center12-19-2024 NoteHNO ID: [id number] Author: SARAH MERCHANT PT Service: ? Author [...] L2x12' seat 8 2: shuttle leg press 5fqwvfg8', SL 4yjdkxF85x, 4dbjeqA4o - increased thigh pain 3: *standing back [...] Session Stop Time : 1335 Sarah Merchant [place]12-19-2024 History of Present illness Narrative* Sarah Merchant, [...] L2x12' seat 8 2: shuttle leg press 9nobicg2', SL 2zjkkuQ68r, 9sefbzV7d - increased thigh pain 3: *standing back [...] 1335 Sarah Merchant PT documented in this encounterCincinnati Va Medical Center12-17-2024 NoteHNO ID: [id number] Author: SARAH MERCHANT PT Service: ? Author [...] for Episode of Care: created on 11/15/23 [place] in home exercise program. Patient will demonstrate [...] Patient to be seen for Therapeutic exercise (49228), Neuromuscular re-education (01475), Therapeutic activities (44840), Self-usp management (97007), Gait Training (68199), Patient/Family/Caregiver Education, General Conditioning PLAN FOR NEXT [...] facilitated with verbal a (more content not included)...[facility]12-17-2024 History of Present illness Narrative* Sarah [...] for Episode of Care: created on 11/15/23 [place] in home exercise program. Patient will demonstrate [...] Patient to be seen for Therapeutic exercise (48813), Neuromuscular re-education (78221), Therapeutic activities (84115), Self-usp management (31282), Gait Training (03978), Patient/Family/Caregiver Education, General Conditioning PLAN FOR NEXT [...] 1420 Sarah Merchant PT documented in this encounterCincinnati Va Medical Center12-09-2024 History of Present illness Narrative* Sharon Jarrett APRN.GERICARE AIDE - 04/10/2024 4:00 PM EST FOLLOW UP VISIT - ENDOSCOPY Michael Meier 1940 [id number] REFERRING PHYSICIAN: No referring provider defined for [...] as needed for worsening/no improvement. Sharon Jarrett APRN.GERICARE AIDE documented in this encounterCincinnati Va Medical Center12-09-2024 NoteHNO ID: [id number] Author: SHARON JARRETT APRN.CNP Service: ? Author Type: Nurse Practitioner Type: Progress Notes Filed: 04/10/2024 16:04 Note Text: FOLLOW UP VISIT - ENDOSCOPY Michael Meier 1940 [id number] REFERRING PHYSICIAN: No referring provider defined for [...] as needed for worsening/no improvement. Sharon Jarrett APRN.[facility]11-29-2024 History and physical note* Raymundo De León MD - 03/31/2024 11:15 AM EST HISTORY AND PHYSICAL Michael Meier : 1940 REFERRING PHYSICIAN: Michael Puga [address] [facility] [address] CHIEF COMPLAINT: Patient presents with: Consult: EGD [...] was 01/[address] De León at [facility] Sedation:Midazolam 4 mg IV, Fentanyl 100 [...] COMPARTMENTS 11/15/2009 Knee replacement, total -Left - [facility] ARTHRP KNE CONDYLE&PLATU MEDIAL&LAT COMPARTMENTS 12/30/2009 Right knee replaced COLONOSCOPY FLX DX W/COLLJ SPEC WHEN PFRMD 06/29/2017 Colonoscopy EGD 10/17/2020 EGD W/O [facility] SPEC VARICIES INJ 01/08/2022 ESOPHAGOGASTRODUODENOSCOPY TRANSORAL DIAGNOSTIC [...] edited and updated as necessary. Sharonsailaja Jarrett APRN.GERICARE AIDE UPDATED HISTORY AND PHYSICAL EXAMINATION SERVICE DATE: 03/31/2024 SERVICE TIME: 10:46 AM SENSITIVE EXAMINATION CONSENT: The sensitive examination was discussed with the Patient or Patient's Authorized [employer] Consultant. Asapplicable, any other physician, advance practice provider, medical student, or other health professional student that will be observing or involved in the sensitive examination for educational or training purposes was discussed with the Patient or Authorized [employer] Consultant. The Patient or Authorized [employer] Consultant has agreed to proceed with the sensitive [...] DATE: March 31, 2024 TIME: 10:46 AM [facility]11-29-2024 History and physical note* Raymundo De León MD - 03/31/2024 11:15 AM EST HISTORY AND PHYSICAL Michael Meier : 1940 REFERRING PHYSICIAN: Michael Puga [address] [facility] [address] CHIEF COMPLAINT: Patient presents with: Consult: EGD [...] was 01/[address] De León at [facility] Sedation:Midazolam 4 mg IV, Fentanyl 100 [...] COMPARTMENTS 11/15/2009 Knee replacement, total -Left - [facility] ARTHRP KNE CONDYLE&PLATU MEDIAL&LAT COMPARTMENTS 12/30/2009 Right knee replaced COLONOSCOPY FLX DX W/COLLJ SPEC WHEN PFRMD 06/29/2017 Colonoscopy EGD 10/17/2020 EGD W/O [facility] SPEC VARICIES INJ 01/08/2022 ESOPHAGOGASTRODUODENOSCOPY TRANSORAL DIAGNOSTIC [...] edited and updated as necessary. Sharon Jarrett APRN.GERICARE AIDE UPDATED HISTORY AND PHYSICAL EXAMINATION SERVICE DATE: 03/31/2024 SERVICE TIME: 10:46 AM SENSITIVE EXAMINATION CONSENT: The sensitive examination was discussed with the Patient or Patient's Authorized [employer] Consultant. Asapplicable, any other physician, advance practice provider, medical student, or other health professional student that will be observing or involved in the sensitive examination for educational or training purposes was discussed with the Patient or Authorized [employer] Consultant. The Patient or Authorized [employer] Consultant has agreed to proceed with the sensitive [...] 2024 TIME: 10:46 AM documented in this encounterCincinnati Va Medical Center11-25-2024 Instructions* Patient Instructions* Mary Foster APRN.GERICARE AIDE - 03/27/2024 2:22 PM EST Images from the original note were not included. [facility] PATIENT PREOPERATIVE INSTRUCTIONS Raymundo De León MD has scheduled you for your procedure at this surgery center: [facility]: [phone] -- [address] [facility] [address]. Please read below carefully for your personalized [...] office. If you are currently using a [id number]-mfc-[id number] injectable or oral medication for diabetes or [...] Procedures: - YOU MUST HAVE A RESPONSIBLE COPY LATHE TENDER TAKE YOU HOME. A VACATION SALES ADVISOR OR MULTI CRAFT MAINTENANCE TECHNICIAN CANNOT BE MADE A RESPONSIBLE COPY LATHE TENDER. - We recommend that a responsible person [...] Advance Directive, please fax a copy to [phone] or email to for it to be [...] day. Mary Foster APRN.CNP documented in this encounterCincinnati Va Medical Center11-25-2024 History and physical note * Mary Foster [...] Assessment: c/w statin Cardiac resynchronization therapy pacemaker (IMPORT COORDINATOR-P) in place Assessment: s/p 10/2021 ICD placement, [...] large neck Non-male patient STOP-Bang Score: 2 [id number] Score: Age: >=75 Sex: female CHF history: No Hypertension history: Yes Stroke/TIA/thromboembolism history: Yes Vascular disease history: No Diabetes history: No [id number] Score: 6 ARISCAT Score: Age: >80 Preoperative [...] female who is scheduled for colonoscopy at [facility] of Dr. Raymundo De León for consultation. My final recommendation will be communicated backto the requesting physician by way of shared medical record or letter. Subjective The patient has the following: COVID-19 Immunization Status Overdue - Covid-19 Vaccine ( season) Overdue since 01/02/2024 10/14/2023 Postponed until 10/13/2024 by Marisol Cano LPN (Declined at this time) 04/05/2023 Imm Admin: COVID-19 vaccine, age 12+ yr ([employer] [facility]) 06/04/2022 Postponed until 06/04/2023 by Marisol Cano [...] was 01/[address] 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 GI: Positive for: GERD (on rx) Negative for: abdominal pain, dysphagia, hepatitis, irritable bowel syndrome, inflammatory bowel disease, liver disease, nausea, vomiting and ETOH >2 drinks/day. : No history of dysuria, frequency or incontinence, stones or chronic kidney disease. No difficulty urinating, nocturia > 1 time per night or hematuria. 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 ARTHRP KNE CONDYLE&PLATU MEDIAL&LAT COMPARTMENTS 12/30/2009 Right knee replaced COLONOSCOPY FLX DX W/COLLJ SPEC WHEN PFRMD 06/29/2017 Colonoscopy EGD 10/17/2020 EGD W/O [facility] SPEC VARICIES INJ 01/08/2022 ESOPHAGOGASTRODUODENOSCOPY TRANSORAL DIAGNOSTIC [...] 8760 hour(s)). Recent Results (from the past 23948 hour(s)) ECHO Collection Time: 06/08/22 1:56 PM [...] 27, 2024 TIME: 2:20 PM PAGER/CONTACT #: [facility]11-25-2024 History and physical note* Mary Foster APRN.CNP - 03/27/2024 2:20 PM EST Images from the original note were not included. [facility] HISTORY [...] Assessment: c/w statin Cardiac resynchronization therapy pacemaker (IMPORT COORDINATOR-P) in place Assessment: s/p 10/2021 ICD placement, [...] large neck Non-male patient STOP-Bang Score: 2 [id number] Score: Age: >=75 Sex: female CHF history: No Hypertension history: Yes Stroke/TIA/thromboembolism history: Yes Vascular disease history: No Diabetes history: No [id number] Score: 6 ARISCAT Score: Age: >80 Preoperative [...] female who is scheduled for colonoscopy at [facility] of Dr. Raymundo De León for consultation. My final recommendation will be communicated backto the requesting physician by way of shared medical record or letter. Subjective The patient has the following: COVID-19 Immunization Status Overdue - Covid-19 Vaccine ( season) Overdue since 01/02/2024 10/14/2023 Postponed until 10/13/2024 by Marisol Cano LPN (Declined at this time) 04/05/2023 Imm Admin: COVID-19 vaccine, age 12+ yr ([employer] [facility]) 06/04/2022 Postponed until 06/04/2023 by Marisol Cano [...] history of gastric issues. Michael follows with [facility]. Last OV 02/2024- she has had [...] was 01/[address] 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 GI: Positive for: GERD (on rx) Negative for: abdominal pain, dysphagia, hepatitis, irritable bowel syndrome, inflammatory bowel disease, liver disease, nausea, vomiting and ETOH >2 drinks/day. : No history of dysuria, frequency or incontinence, stones or chronic kidney disease. No difficulty urinating, nocturia > 1 time per night or hematuria. 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 ARTHRP KNE CONDYLE&PLATU MEDIAL&LAT COMPARTMENTS 12/30/2009 Right knee replaced COLONOSCOPY FLX DX W/COLLJ SPEC WHEN PFRMD 06/29/2017 Colonoscopy EGD 10/17/2020 EGD W/O [facility] SPEC VARICIES INJ 01/08/2022 ESOPHAGOGASTRODUODENOSCOPY TRANSORAL DIAGNOSTIC [...] 8760 hour(s)). Recent Results (from the past 46362 hour(s)) ECHO Collection Time: 06/08/22 1:56 PM [...] 2:20 PM PAGER/CONTACT #: documented in this encounterCincinnati Va Medical Center11-21-2024 NoteHNO ID: [id number] Author: SARAH MERCHANT PT Service: ? Author [...] deficits 2: discussed progress/lack of, goals/expectations for doll surgeon Intervention: Patient was provided supervision, independence during [...] Session Stop Time : 1341 Sarah Merchant [place]11-21-2024 History of Present illness Narrative* Sarah Merchant, [...] deficits 2: discussed progress/lack of, goals/expectations for doll surgeon Intervention: Patient was provided supervision, independence during [...] 1341 Sarah Merchant PT documented in this encounterCincinnati Va Medical Center11-18-2024 NoteHNO ID: [id number] Author: SARAH MERCHANT PT Service: ? Author [...] on 11/15/23 through 01/14/24, extended thru 04/17/24 [place] in home exercise program. Patient will demonstrate [...] Patient to be seen for Therapeutic exercise (03623), Neuromuscular re-education (39547), Therapeutic activities (95431), Self-usp management (69305), Gait Training (42117), Patient/Family/Caregiver Education, General Conditioning PLAN FOR NEXT [...] L3x11' seat 8 2: shuttle leg press 2yhsgeWc1', SL 4bandsR/L 20xea (increased difficulty L vs [...] from mat table wi (more content not included)...[facility]11-18-2024 History of Present illness Narrative* Sarah [...] on 11/15/23 through 01/14/24, extended thru 04/17/24 [place] in home exercise program. Patient will demonstrate [...] Patient to be seen for Therapeutic exercise (42713), Neuromuscular re-education (38904), Therapeutic activities (30467), Self-usp management (60940), Gait Training (86014), Patient/Family/Caregiver Education, General Conditioning PLAN FOR NEXT [...] L3x11' seat 8 2: shuttle leg press 8yxovpDt0', SL 4bandsR/L 20xea (increased difficulty L vs [...] objective for details, discussed progress/deficits, plans/options for doll surgeon Intervention: Patient was educated in proper exercise [...] Neuromuscular Re-Education: 1: standing wt-shifts ant/post with ALLIED HEALTH PROFESSIONAL (tendency for posterior LOB) 2: static stance [...] 1502 Sarah Merchant PT documented in this encounterCincinnati [facility] Medical Center11-14-2024 NoteHNO ID: [id number] Author: SARAH MERCHANT PT Service: ? Author [...] wt-shifted R/L 10xea 6: shuttle leg press 5qenskIp4', SL 5bandsR/L 20x (increased difficulty R vs L) 7: shuttle calf raises 3radseL43t 8: supine hip ABd with orange TB [...] 1248 Session Stop Time : [facility] of Present illness Narrative* Sarah Merchant, [...] wt-shifted R/L 10xea 6: shuttle leg press 5zccvjHw1', SL 5bandsR/L 20x (increased difficulty R vs L) 7: shuttle calf raises 4stysdO81z 8: supine hip ABd with orange TB [...] 1329 Sarah Merchant PT documented in this encounterCincinnati Va Medical Center11-12-2024 NoteHNO ID: [id number] Author: JOY SUN PTA Service: ? Author Type: Quality Assurance Monitor Body Type: Progress Notes Filed: 03/14/2024 10:47 Note [...] Nustep seat 8 lvl 2 10 minutes PRESERVATIVE FILLER MACHINE OPERATOR in constant attendence monitoring technique and reviewing HEP 2: shuttle leg press 3soostTg6', SL 4bands 20x 3: shuttle calf raises [...] Session Stop Time : [address] [facility]11-12-2024 History of Present illness Narrative* [facility], [facility]14[facility] 10:46 AM EST Episode Visit [...] Nustep seat 8 lvl 2 10 minutes PRESERVATIVE FILLER MACHINE OPERATOR in constant attendence monitoring technique and reviewing HEP 2: shuttle leg press 3zpzcmLs2', SL 4bands 20x 3: shuttle calf raises [...] 1045 Joy Sun PTA documented in this encounterCincinnati [facility] Medical Center11-11-2024 Telephone encounter Note * Telephone Encounter - Joshua Mcdowell - 03/13/2024 2:43 PM EST 03-31-2024 EGD Elizabeth Mcdowell [facility]11-11-2024 Miscellaneous Notes* Telephone Encounter - Joshua Mcdowell - 03/13/2024 2:43 PM EST 03-31-2024 EGD Elizabeth Mcdowell documented in this encounterCincinnati Va Medical Center11-11-2024 History of Present illness Narrative* Sharon Jarrett APRN.CARMELINA - 03/13/2024 2:30 PM EST HISTORY AND PHYSICAL Michael Meier : 1940 REFERRING PHYSICIAN: Michael Puga [address] [facility] [address] CHIEF COMPLAINT: Patient presents with: Consult: EGD [...] was 01/[address] De León at [facility] Sedation:Midazolam 4 mg IV, Fentanyl 100 [...] COMPARTMENTS 11/15/2009 Knee replacement, total -Left - [facility] ARTHRP KNE CONDYLE&PLATU MEDIAL&LAT COMPARTMENTS 12/30/2009 Right knee replaced COLONOSCOPY FLX DX W/COLLJ SPEC WHEN PFRMD 06/29/2017 Colonoscopy EGD 10/17/2020 EGD W/O [facility] SPEC VARICIES INJ 01/08/2022 ESOPHAGOGASTRODUODENOSCOPY TRANSORAL DIAGNOSTIC [...] necessary. Sharon Jarrett APRN.CARMELINA documented in this encounterCincinnati Va Medical Center11-11-2024 NoteHNO ID: [id number] Author: SHARON JARRETT APRN.GERICARE AIDE Service: ? Author Type: Nurse Practitioner Type: Progress Notes Filed: 03/13/2024 14:47 Note Text: HISTORY AND PHYSICAL Michael Meier : 1940 REFERRING PHYSICIAN: Michael Puga [address] [facility] [address] CHIEF COMPLAINT: Patient presents with: Consult: EGD [...] history of gastric issues. Michael follows with [facility]. Last OV 02/2024- she has had [...] was 01/[address] De León at [facility] Sedation:Midazolam 4 mg IV, Fentanyl 100 [...] ACETBLR/PROX FEM PROSTC AGRFT/ALGRFT Left 07/2016 ARTHRP [facility] CONDYLEANDPLATU MEDIALANDLAT COMPARTMENTS 11/15/2009 Knee replacement, total -Left - [facility] ARTHRP KATIE MOSS (more content not included)...[facility] 03-09-2024 Telephone encounter Note* Telephone Encounter - Sultana Catalan RN - 03/09/2024 3:13 PM EST Called pt and notified. [facility]11-07-2024 Miscellaneous Notes* Telephone Encounter - Sultana Catalan [...] she does. Please advise. documented in this encounterCincinnati Va Medical Center11-06-2024 Telephone encounter Note * Telephone Encounter - Michael Puga DO - 03/08/2024 9:35 PM EST Please inform patient Michael Shah DO Edd [facility]11-06-2024 Telephone encounter Note* Telephone Encounter - Mary Lopez LPN - 03/08/2024 10:01 AM EST Patient does not meet Medicare Guidelines to have the Wheelchair covered by insurance. States that patient needs to require a wheelchair for most of her daily needs. According to OV note they received it does not appear that she does. Please advise. [facility]10-31-2024 NoteHNO ID: [id number] Author: SARAH MERCHANT PT Service: ? Author [...] L2x15' seat 9 2: shuttle leg press 3fvoetQc1', SL 4bandsL 20x, 5qyggtH71h 3: shuttle calf raises 6bandsB 10x 4: [...] Session Stop Time : 1334 Sarah Merchant [place]10-31-2024 History of Present illness Narrative* Sarah Merchant, [...] L2x15' seat 9 2: shuttle leg press 4rrzypCu3', SL 4bandsL 20x, 1dvepoJ93f 3: shuttle calf raises 6bandsB 10x 4: [...] 1334 Sarah Merchant PT documented in this encounterCincinnati [facility] Center10-31-2024 Telephone encounter Note * Telephone Encounter - Bhavna Arauz RN - 03/02/2024 1:47 PM EDT Patient calls and notified of below. Voices understanding. Bhavna Arauz RN [facility]10-31-2024 Miscellaneous Notes* Telephone Encounter - Bhavna Arauz RN - 03/02/2024 1:47 PM EDT Patient calls and notified of below. Voices understanding. Bhavna Arauz RN * Telephone Encounter - Jacque Machuca MA - 03/02/2024 1:28 PM EDT Faxed to [place]. Left message to return call. Please notify patient. Jacque Machuca MA * Telephone Encounter - Michael Puga DO - 03/01/2024 10:50 PM EDT Fax my office note from today and standard [facility] andthen notify her Michael Puga DO documented in this encounterCincinnati Va Medical Center10-31-2024 Telephone encounter Note * Telephone Encounter - Jacque Machuca MA - 03/02/2024 1:28 PM EDT Faxed to in [place]. Left message to return call. Please notify patient. Jacque Machuca MA [facility]10-30-2024 Telephone encounter Note* Telephone Encounter - Michael Puga DO - 03/01/2024 10:50 PM EDT Fax my office note from today and standard wheelchair to her [facility] listed andthen notify her Michael Puga DO [facility]10-30-2024 NoteHNO ID: [id number] Author: MICHAEL PUGA DO Service: ? Author [...] at 1.6 with recent lab check at [facility] [employer] [facility] office in Jan at [facility], she is using her Bipap each [...] Chronic dyspnea, has been fully evaluated by [employer]st whom doesn't feel this is due to [...] ACETBLR/PROX FEM PROSTC AGRFT/ALGRFT Left 07/2016 ARTHRP [facility] CONDYLEANDPLATU MEDIALANDLAT COMPARTMENTS 11/15/2009 Knee replacement, total -Left - [facility] ARTHRP KNE CONDYLEANDPLATU MEDIALANDLAT COMPARTMENTS 12/30/2009 Right knee replaced COLONOSCOPY FLX DX W/COLLJ SPEC WHEN PFRMD 06/29/2017 Colonoscopy EGD 10/17/2020 EGD W/O [facility] SPEC VARICIES INJ 01/08/2022 ESOPHAGOGASTRODUODENOSCOPY TRANSORAL DIAGNOSTIC [...] by mouth once daily (more content not included)...[facility] 03-01-2024 History of Present illness Narrative* Michael [...] at 1.6 with recent lab check at [employer] office in Jan at [facility], she is using her Bipap each [...] Chronic dyspnea, has been fully evaluated by [employer]st whom doesn't feel this is due to [...] Knee replacement, total -Left - [facility] ARTHRP KNE CONDYLE&PLATU MEDIAL&LAT COMPARTMENTS 12/30/2009 Right knee replaced COLONOSCOPY FLX DX W/COLLJ SPEC WHEN PFRMD 06/29/2017 Colonoscopy EGD 10/17/2020 EGD W/O [facility] SPEC VARICIES INJ 01/08/2022 ESOPHAGOGASTRODUODENOSCOPY TRANSORAL DIAGNOSTIC [...] plan. See patient instructions. Michael Puga DO [address] [place] [address] documented in this encounterCincinnati Va Medical Center10-17-2024 NoteHNO ID: [id number] Author: SARAH MERCHANT PT Service: ? Author [...] on 11/15/23 through 01/14/24, extended thru 04/17/24 Toole in home exercise program. Patient will demonstrate [...] Patient to be seen for Therapeutic exercise (47312), Neuromuscular re-education (00412), Therapeutic activities (27973), Self-usp management (48975), Gait Training (49537), Patient/Family/Caregiver Education, General Conditioning PLAN FOR NEXT [...] hip ABd 20xR 6: shuttle leg press 6mclbqOp7' (30 reps), SL 5bandsR/L 10xea 7: shuttle calf raises 5bandsB 15x 8: B calf stretch on slant board x1' 9: recheck - see objective for details, discussed progress AND deficits, plans/options for doll surgeon Intervention: Patient was educated in proper exercise technique and purpose for exercises. Skilled judgment was used in selection of appropriate interventions. Correct performance of therapeutic exercises was facilitated with verbal and visual cuing. Educated patient on rationale for performing exercises in rega (more content not included)...[facility]10-17-2024 History of Present illness Narrative* Sarah [...] on 11/15/23 through 01/14/24, extended thru 04/17/24 Toole in home exercise program. Patient will demonstrate [...] Patient to be seen for Therapeutic exercise (00989), Neuromuscular re-education (40465), Therapeutic activities (64154), Self-usp management (37375), Gait Training (79521), Patient/Family/Caregiver Education, General Conditioning PLAN FOR NEXT [...] hip ABd 20xR 6: shuttle leg press 2tpfgiJf9' (30 reps), SL 5bandsR/L 10xea 7: shuttle calf raises 5bandsB 15x 8: B calf stretch on slant board x1' 9: recheck - see objective for details, discussed progress & deficits, plans/options for doll surgeon Intervention: Patient was educated in proper exercise [...] 1640 Sarah Merchant PT documented in this encounterCincinnati Va Medical Center10-14-2024 NoteHNO ID: [id number] Author: WILFRED MCCLELLAN PTA Service: ? Author Type: Quality Assurance Monitor Body Type: Progress Notes Filed: 02/14/2024 16:35 Note [...] Session Stop Time : 1404 Wilfred Mcclellan PTADorothea [facility]10-[facility] History of Present illness Narrative* Wilfred [...] hip extension and hip flexion vs manual x each 6: long sitting right /left [...] 1404 Wilfred Mcclellan PTA documented in this encounterCincinnati Va Medical Center10-10-2024 NoteHNO ID: [id number] Author: SARAH MERCHANT PT Service: ? Author [...] L3x10' seat 8 2: shuttle leg press 4ldwbnJx2', 6ivosqI78j, SL 4bands R/L 20xea 3: shuttle calf raises 3dbcfcM59w 4: B calf stretch on slant board [...] 1241 Session Stop Time : 1334 [facility] of Present illness Narrative* Sarah Merchant, [...] L3x10' seat 8 2: shuttle leg press 3opihzIv6', 1oclytB51g, SL 4bands R/L 20xea 3: shuttle calf raises 7rdobmE68m 4: B calf stretch on slant board [...] 1334 Sarah Merchant PT documented in this encounterCincinnati Va Medical Center10-07-2024 NoteHNO ID: [id number] Author: SARAH MERCHANT, PT Service: ? Author [...] L3x10' seat 8 2: shuttle leg press 4uafmuUs6', SL 4bands R/L 20xea 3: shuttle calf raises 8gntoqI06u 4: ASLR 2#L/R 20xea 5: supine hip [...] 1358 Session Stop Time : 1457 [facility] History of Present illness Narrative* Sarah Merchant, [...] L3x10' seat 8 2: shuttle leg press 5hfgfmLs1', SL 4bands R/L 20xea 3: shuttle calf raises 1ayvsmC53q 4: ASLR 2#L/R 20xea 5: supine hip [...] 1457 Sarah Merchant PT documented in this encounterCincinnati Va Medical Center09-30-2024 NoteHNO ID: [id number] Author: SARAH MERCHANT PT Service: ? Author [...] at ankles 15x 6: shuttle leg press 8pvpylXs5', SL 6 unxskE77k, 5abmsiZ8y, 1akpqtN38r 7: shuttle calf raises 8swvdgJ63z 8: Nu-step L3x10' seat 8 Skilled Intervention: [...] 1422 Session Stop Time : 1512 [facility]09-30-[facility] History of Present illness Narrative* Sarah Merchant, [...] at ankles 15x 6: shuttle leg press 8xfvsuVs0', SL 6 edanyM28v, 4rjdwuH7h, 7potvlV25d 7: shuttle calf raises 6lwcebE13s 8: Nu-step L3x10' seat 8 Skilled Intervention: [...] 1512 Sarah Merchant PT documented in this encounterCincinnati Va Medical Center09-25-2024 NoteHNO ID: [id number] Author: WILFRED MCCLELLAN PTA Service: ? 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 Author [...] on 11/15/23 through 01/14/24, extended thru 04/17/24 Toole in home exercise program. Patient will demonstrate [...] Patient to be seen for Therapeutic exercise (59946), Neuromuscular re-education (75767), Therapeutic activities (74906), Self-usp management (19572), Gait Training (48588), Patient/Family/Caregiver Education, General Conditioning PLAN FOR NEXT [...] AND SOB with activity. has f/u with blow mold machine operator this month AND PCP next month. says [...] fatigue AND SOB. advised f/u with PCP, blow mold machine operator, retail project merchandiser prn Skilled Intervention: Patient was educated in proper exer (more content not included)...[facility]09-17-2024 History of Present illness Narrative* Sarah [...] on 11/15/23 through 01/14/24, extended thru 04/17/24 Toole in home exercise program. Patient will demonstrate [...] Patient to be seen for Therapeutic exercise (20996), Neuromuscular re-education (25108), Therapeutic activities (56643), Self-usp management (67599), Gait Training (43257), Patient/Family/Caregiver Education, General Conditioning PLAN FOR NEXT [...] & SOB with activity. has f/u with blow mold machine operator this month & PCP next month. sayvalerie [...] fatigue & SOB. advised f/u with PCP, blow mold machine operator, retail project merchandiser prn Skilled Intervention: Patient was educated in [...] 1430 Sarah Merchant PT documented in this encounterCincinnati Va Medical Center09-10-2024 Telephone encounter Note * Telephone Encounter - Julianna Cano LPN - 01/11/2024 10:23 AM EDT Order faxed as below. [facility]09-10-[facility] Miscellaneous Notes* Telephone Encounter - Julianna Moreno [...] Flores. Carie Lora RN documented in this encounterCincinnati Va Medical Center09-10-2024 Telephone encounter Note * Telephone Encounter - Nunu Gonzalez PA-C - 01/11/2024 9:41 AM EDT Rx ordered, please fax. Nunu Gonzalez PA-C [facility]09-09-2024 Telephone encounter Note* Telephone Encounter - Carie Lora RN - 01/10/2024 2:39 PM EDT Patient calling with request for script for standard wheelchair for weakness and gait instability due to back problems. If agree, please fax script to Kevin Zachariah Flores. Carie Lora RN [facility]08-12-2024 NoteHNO ID: [id number] Author: SARAH MERCHANT, PT Service: ? Author [...] 4: bridging 10x2 5: shuttle leg press 1kewyzEj8', SL 5bandsL/R 15xea 6: shuttle calf raises [...] Session Stop Time : 1632 Sarah Merchant [place]08-12-2024 History of Present illness Narrative* Sarah Merchant, [...] 4: bridging 10x2 5: shuttle leg press 6bifbxAa1', SL 5bandsL/R 15xea 6: shuttle calf raises [...] 1632 Sarah Merchant PT documented in this encounterCincinnati Va Medical Center08-06-2024 NoteHNO ID: [id number] Author: WILFRED MCCLELLAN PTA Service: ? Author Type: Quality Assurance Monitor Body Type: Progress Notes Filed: 12/07/2023 17:49 Note [...] Session Stop Time : 1730 Wilfred Mcclellan PTADorothea [facility]08-06-2024 History of Present illness Narrative* Wilfred [...] Mcclellan PTA - 12/07/2023 5:18 PM EDT Program_ID:[id number] Access Code: [email or web address] URL: [email or web address] Date: 12-07-2023 Prepared By: Margoth Mcclellan Program Notes Exercises - Seated Hip Abduction - 1-2 x daily - 5 x weekly - 2-3 sets - 10 reps documented in this encounterCincinnati Va Medical Center07-31-2024 Instructions* Patient Instructions* Michael Puga DO - 12/01/2023 2:00 PM EDT Make sure you are taking: Vitamin C 500-100 mg a day Zinc 15-25 mg a day Vitamin D3 at least 1000 international unit(s) a day Vitamin B12 at least 500-1000 mcg a day documented in this encounterCincinnati Va Medical Center07-31-2024 NoteHNO ID: [id number] Author: MICHAEL PUGA DO Service: ? Author [...] No date: Sleep apnea No date: Stroke ([facility]) No date: Unspecified essential hypertension No date: Unspecified gastritis and gastroduodenitis PAST SURGICAL HISTORY No date: ABDOMINAL SURGERY HX No date: APPENDECTOMY HX 12/09/2003: ARTHRP ACETBLR/PROX FEM PROSTC AGRFT/ALGRFT Comment: right hip, redone, 07/2004: ARTHRP ACETBLR/PROX FEM PROSTC AGRFT/ALGRFT; Left 11/15/2009: ARTHRP KNE CONDYLEANDPLATU MEDIALANDLAT COMPARTMENTS Comment: Knee replacement, total [facility] 12/30/2009: ARTHRP KNE CONDYLEANDPLATU MEDIALANDLAT COMPARTMENTS Comment: Right knee replaced 06/29/2017: COLONOSCOPY FLX DX W/COLLJ SPEC WHEN PFRMD Comment: Colonoscopy 10/17/2020: EGD Comment: 01/08/2022: EGD W/O [facility] SPEC VARICIES INJ 11/29/2000: ESOPHAGOGASTRODUODENOSCOPY TRANSORAL DIAGNOSTIC [...] use: No ROS: See (more content not included)...[facility]07-31-2024 History of Present illness Narrative* Michael Puga, [...] COMPARTMENTS Comment: Knee replacement, total -Left - [facility] 12/30/2009: ARTHRP KNE CONDYLE&PLATU MEDIAL&LAT COMPARTMENTS Comment: Right knee replaced 06/29/2017: COLONOSCOPY FLX DX W/COLLJ SPEC WHEN PFRMD Comment: Colonoscopy 10/17/2020: EGD Comment: 01/08/2022: EGD W/O [facility] SPEC VARICIES INJ 11/29/2000: ESOPHAGOGASTRODUODENOSCOPY TRANSORAL DIAGNOSTIC [...] See patient instructions. Michael Puga DO [address] [place] [address] documented in this encounterCincinnati Va Medical Center07-26-2024 Telephone encounter Note * Telephone Encounter - Loli Adamson RN - 11/26/2023 8:41 AM EDT Pt returned call and given provider's message below with verbalized understanding. Patient reports her phone on previous call. [facility]07-26-2024 Miscellaneous Notes* Telephone Encounter - Loli Adamson [...] Puga. Asia Rosales APRN.CARMELINA documented in this encounterCincinnati Va Medical Center07-26-2024 Telephone encounter Note * Telephone Encounter - Jacque Machuca MA - 11/26/2023 8:24 AM EDT Started to speak with patient and other line disconnected. Please try again. Jacque Machuca MA [facility]07-26-2024 Telephone encounter Note* Telephone Encounter - Asia Rosales APRN.CNP - 11/26/2023 6:55 AM EDT Please let her know that overall no acute concerns with her labs, she can discuss in more detail ather upcoming appt with Dr. Puga. Asia Rosales APRN.CNP [facility] Work Phone: 1(643) 165-816107-25-2024 NoteHNO ID: [id number] Author: SARAH MERCHANT, FRANTZ Service: ? Author [...] Ankle Eversion: 4+/5 Gait Gait Device: Cane (hurLogoGrab cane) Balance Static Standing Balance: Narrow Base [...] Session Stop Time : 922 Sarah Merchant [place]07-25-2024 History of Present illness Narrative* Sarah Merchant, [...] 922 Sarah Merchant PT documented in this encounterCincinnati Va Medical Center07-23-2024 NoteHNO ID: [id number] Author: SARAH MERCHANT PT Service: ? Author [...] weakness/instability with SLS 4: shuttle leg press 5bguhxVi0', SL 5bandsL/R 10xea 5: shuttle calf raises [...] Session Stop Time : [address] [facility]07-23[facility] History of Present illness Narrative* Sarah [...] hipweakness/instability with SLS 4: shuttle leg press 6meqdvFn0', SL 5bandsL/R 10xea 5: shuttle calf raises [...] 1501 Sarah Merchant PT documented in this encounterCincinnati Va Medical Center07-15-2024 NoteHNO ID: [id number] Author: SARAH MERCHANT PT Service: ? Author [...] of Care: created on 11/15/23 through 01/14/24 Toole in home exercise program. Patient will demonstrate [...] Planned: 15 Planned Treatment Interventions: Therapeutic exercise (86104), Neuromuscular re-education (86046), Therapeutic activities (22426), Self-usp management (62453), Gait Training (57601), Patient/Family/Caregiver Education, General Conditioning PLAN FOR NEXT [...] Strength R UE Strength: (more content not included)...[facility] 11-15-2023 History of Present illness Narrative* aSrah Merchant, PT - 11/15/2023 6:32 PM EDT [...] of Care: created on 11/15/23 through 01/14/24 Toole in home exercise program. Patient will demonstrate [...] Planned: 15 Planned Treatment Interventions: Therapeutic exercise (96466), Neuromuscular re- education (48748), Therapeutic activities (89836), Self-usp management (11904), Gait Training (66417), Patient/Family/Caregiver Education, General Conditioning PLAN FOR NEXT [...] 1723 Sarah Merchant, PT documented in this encounterCincinnati Va Medical Center06-18-2024 Telephone encounter Note * Telephone Encounter - Julianna Cano LPN - 10/19/2023 9:33 AM EDT [facility] informed. D/c Home O2 faxed to [employer]. [facility]06-18-2024 Miscellaneous Notes* Telephone Encounter - Julianna Moreno [...] - 10/18/2023 9:07 AM EDT Bhavna from [facility] Home Health calling patient had seen Key Portillo [facility] on 10/14/2023. She started her on Trazodone 50 mg at bedtime. Patient started Trazodone rx Wednesday night and said she did not sleep at all, not helping. Asking if the dose could be increased or changed to something else? Patientsaid Zolpidem made her feel hung over. Patient uses [facility] for her pharmacy. [facility] is out of the office this week. Patient asking to have oxygen taken out of the household, she is not using it at all. [facility] started her on the oxygen and [employer] is her oxygen supplier. Pending order if wanted. Please call Bhavna back response. Please advise documented in this encounterCincinnati Va Medical Center06-18-2024 Telephone encounter Note * Telephone Encounter - [...] at bedtime. Authorizing Provider: MICHAEL PUGA DO [facility]06-17-2024 Telephone encounter Note* Telephone Encounter - Nadine Colon LPN - 10/18/2023 9:07 AM EDT Bhavna from [facility] Home Health calling patient had seen Key Portillo [facility] on 10/14/2023. She started her on Trazodone 50 mg at bedtime. Patient started Trazodone rx Wednesday night and said she did not sleep at all, not helping. Asking if the dose could be increased or changed to something else? Patientsaid Zolpidem made her feel hung over. Patient uses [facility] for her pharmacy. [facility] is out of the office this week. Patient asking to have oxygen taken out of the household, she is not using it at all. [facility] started her on the oxygen and [employer] is her oxygen supplier. Pending order if wanted. Please call Bhavna back response. Please advise [facility]06-17-20[facility] Telephone encounter Note* Telephone Encounter - Marisol [...] Cano LPN October 18, 2023 8:59 AM [facility]06-17-2024 Miscellaneous Notes* Telephone Encounter - Marisol Cano [...] 18, 2023 8:58 AM documented in this encounterCincinnati Va Medical Center06-17-2024 Telephone encounter Note * Telephone Encounter - [...] Yumiko Gomez October 18, 2023 8:58 AM [facility]06-13-2024 History of Present illness Narrative* Key Portillo APRN.GERICARE AIDE - 10/14/2023 1:20 PM EDT Chief Complaint Patient presents with: Transition Of Care HPI Michael Meier is a 83 year old female who presents here today for Above Complaints. Michael is an established patient of Dr. Puga, and myself. Concerns today... Hospital follow-up -- [facility] ER visit on 09/26 d/t SOB. Pt [...] Has one day left of prednisone taper. residential coming to house weekly -- likely last visit will be on Wednesday. Pt and penitentiary monitoring O2 saturation. Pt has not been [...] COMPARTMENTS 11/15/2009 Knee replacement, total -Left - [facility] ARTHRP KNE CONDYLE&PLATU MEDIAL&LAT COMPARTMENTS 12/30/2009 Right knee replaced COLONOSCOPY FLX DX W/COLLJ SPEC WHEN PFRMD 06/29/2017 Colonoscopy EGD 10/17/2020 EGD W/O [facility] SPEC VARICIES INJ 01/08/2022 ESOPHAGOGASTRODUODENOSCOPY TRANSORAL DIAGNOSTIC [...] d/t poor sleep. Continue with at home penitentiary visits. 2. Anxiety - ICD9: 300.00, ICD10: [...] d/t poor sleep. Continue with at home penitentiary visits. RTO in 1.5 months as scheduled, sooner if needed. Prescription instructions reviewed with patient as applicable. Potential red flag symptoms discussed with the patient. Reviewed appropriate action plan to take if red flag symptoms occur. Patient agreeable to treatment plan. Key Abrams APRN.GERICARE AIDE [address] [place] [address] documented in this encounterCincinnati Va Medical Center06-10-2024 History of Present illness Narrative* Isabella Michel RN - 10/11/2023 1:16 PM EDT TRANSITION CARE MANAGEMENT (TCM) FOLLOW-UP NOTE Provider Action/FYI Patient identified by name and date of : YES Spoke to patient Discharge Network Status: Pvr-tj-Aeagayj (OON) Discharge Summary: Pt discharged from [facility] on 10/02/23. Admitted for: Shortness of breath Concerns: Pt reports she is doing well and feeling much improved. She is 96% pulse ox on RA. States the nurse with [facility] states her lungs were clear today. has fam med f/u 10/13. Dermatology Teacher plan for next outreach: TCM will continue to follow. IRENE Education Ordered -: No Isabella Michel RN October 11, 2023 1:16 PM documented in this encounterCincinnati Va Medical Center06-06-2024 Telephone encounter Note * Telephone Encounter - Loli Adamson RN - 10/07/2023 10:23 AM EDT Re-faxed CMP order to [facility] per Ernestine request. Reports they did not receive it yesterday. [facility]06-06-2024 Miscellaneous Notes* Telephone Encounter - Loli Adamson RN - 10/07/2023 10:23 AM EDT Re-faxed CMP order to [facility] per Ernestine request. Reports they did not receive it yesterday. * Telephone Encounter - Katharine Paul MA - 10/07/2023 9:14 AM EDT Spoke Ernestine and faxed order * Telephone Encounter - Michael Puga DO - 10/06/2023 10:41 PM EDT Ok to check labs as ordered below If not improving, then will need stool studies/C diff testing iMchael Puga DO * Telephone Encounter - Mary Lopez LPN - 10/06/2023 12:00 PM EDT Ernestine with [facility] calling, she spoke with patient today. Patient is doing well recovering from thepneumonia other than she has had diarrhea for 3 days. Today is the worst day and she is having a BMevery time she is urinating. Ernestine states the biggest concern would be dehydration. Asking if PCP has any recommendation. Please advise. documented in this encounterCincinnati Va Medical Center06-06-2024 Telephone encounter Note * Telephone Encounter - Katharine Paul MA - 10/07/2023 9:14 AM EDT Spoke Ernestine and faxed order [facility]06-05-2024 Telephone encounter Note* Telephone Encounter - Michael Puga DO - 10/06/2023 10:41 PM EDT Ok to check labs as ordered below If not improving, then will need stool studies/C diff testing Michael Puga DO [facility]06-05-2024 Telephone encounter Note* Telephone Encounter - Mary [...] if PCP has any recommendation. Please advise. [facility]06-05-2024 Telephone encounter Note* Telephone Encounter - Katharine Paul MA - 10/06/2023 9:14 AM EDT Nurse from [facility] was notified Katharine Paul MA [facility]06-05-2024 Miscellaneous Notes* Telephone Encounter - Katharine Paul MA - 10/06/2023 9:14 AM EDT Nurse from [facility] was notified Katharine Paul MA * Telephone Encounter - Michael Puga DO - 10/06/2023 9:01 AM EDT Please make sure her Computer Methods Analyst is aware of her BLOOD PRESSURE elevation [...] EDT -Bhavna reports pt was admitted to [facility] nursing today. Bhavna reports Nursing will see [...] message/orders. Constance Ervin LPN documented in this encounterCincinnati Va Medical Center06-05-2024 Telephone encounter Note * Telephone Encounter - Michael Puga DO - 10/06/2023 9:01 AM EDT Please make sure her Computer Methods Analyst is aware of her BLOOD PRESSURE elevation [...] cold/allergy symptoms. Authorizing Provider: MICHAEL PUGA DO [facility]06-03-2024 Telephone encounter Note* Telephone Encounter - Constance Ervin LPN - 10/04/2023 3:52 PM EDT -Bhavna reports pt was admitted to [facility] nursing today. Bhavna reports Nursing will see [...] Bhavna with provider message/orders. Constance Ervin LPN [facility]06-03-2024 History of Present illness Narrative* Magaly Puri MA - 10/04/2023 11:17 AM EDT POPULATION HEALTH NAVIGATION OUTREACH Action/FYI [facility] Hospital Discharge Follow up. TCM Eligible until 10/16/23. Pt cell [phone] Spoke with patient; scheduled appt Reason for [...] 10/04/2023 10:37 AM EDT TRANSITIONAL CARE MANAGEMENT ([facility]) [facility] MONITORING PROGRAM Provider Action/FYI: Pt reports she is wearing O2 at 2L at night and 4L during the day. Has some SOB with any exertion and she has ordered to pulse ox. Discussed safe parameters for the pulse ox - 92-93 % and above. Pt states Prednisone rx at discharge, doing breathing treatments diligently. [facility] nursing to visit today. Encouraged pt to bring DC papers to PCP f/u Navigation Team Please assist with scheduling TCM Hospital Discharge Follow up. TCM Eligible until 10/16/23. Pt [phone] Thank you SUMMARY: Discharge Network Status: Egj-uy-Znxeqds (OON) Discharge Pt discharged from [facility] on 10/02/23. Admitted for: Shortness of [...] Home Visit Referral Source of Stratification: TCM [facility] Hospital Admission Status: Discharged Readmission Risk [...] RN and I am calling from the [facility] on behalf of yourPCP, Michael Puga, DO [...] like to speak with a social work trampoline team coach to help give you support for any [...] I will send your request to a maintenance scheduler who will contact and assist you with that appointment. This will give you an opportunity to ask any questions or address any concerns youmay have with your PCP. Inform the patient that if they have any questions or concerns prior to that appointment, to call their PCP's office right away. ACTION TAKEN: Patient desires an appointment - Routed to [facility] [[phone]] for schedulingtelehealth visit (telephonic, virtual visit, or [...] 04, 2023 10:51 AM documented in this encounterCincinnati Va Medical Center05-31-2024 Telephone encounter Note * Telephone Encounter - Jacque Machuca MA - 10/01/2023 3:36 PM EDT Larissa informed. Jacque Machuca MA [facility] [facility] Miscellaneous Notes* Telephone Encounter - Jacque Machuca MA - 10/01/2023 3:36 PM EDT Larissa informed. Jacque Machuca MA * Telephone Encounter - Key Portillo APRN.CNP - 10/01/2023 2:39 PM EDT Yes, PCP will follow. Thank you, Key Portillo APRN.CNP * Telephone Encounter - Mary Lopez LPN - 10/01/2023 11:49 AM EDT Larissa from [facility] calling, patient is being discharged from [facility] tomorrow. She was referred for [facility] for O2 management. They plan to see patient Wednesday. Asking if PCP is willing to follow.Please advise. documented in this encounterCinc[facility]05-31-[facility]24 Telephone encounter Note * Telephone Encounter - Key Portillo APRN.CNP - 10/01/2023 2:39 PM EDT Yes, PCP will follow. Thank you, Key Portillo APRN.CNP [facility]05-31-2024 Telephone encounter Note* Telephone Encounter - Mary Lopez LPN - 10/01/2023 11:49 AM EDT Larissa from [facility] calling, patient is being discharged from [facility] tomorrow. She was referred for penitentiary for O2 management. They plan to see patient Wednesday. Asking if PCP is willing to follow.Please advise. [facility]12-07-[facility]23 History of Present illness Narrative* Michael Puga [...] have symptoms. Has recently seen Dr. Hickey Computer Methods Analyst and had repeat ECHOand other cardiac testing [...] COMPARTMENTS 11/15/2009 Knee replacement, total -Left - [facility] ARTHRP KNE CONDYLE&PLATU MEDIAL&LAT COMPARTMENTS 12/30/2009 Right knee replaced COLONOSCOPY FLX DX W/COLLJ SPEC WHEN PFRMD 06/29/2017 Colonoscopy EGD 10/17/2020 EGD W/O [facility] SPEC VARICIES INJ 01/08/2022 ESOPHAGOGASTRODUODENOSCOPY TRANSORAL DIAGNOSTIC [...] vaccine - ICD9: V04.89, ICD10: Z23 - [employer] COVID-19 VACCINE ( SEASON) AGE 12+ YR [...] - ICD9: 496, ICD10: J44.9 F/u with Quantitative Analyst Marketing 8. IFG (impaired fasting glucose) - ICD9: [...] plan. See patient instructions. Michael Puga DO [address] [place] [address] documented in this encounterCincinnati [facility] Medical Center11-30-2023 Miscellaneous Notes* Telephone Encounter - Nadine Colon LPN - 04/01/2023 4:20 PM EST Phoned patient and went over notes from Dr Puga with understanding. * Telephone Encounter - Michael Puga DO - 03/31/2023 8:32 PM EST We called the blow mold machine operator office but she will need to further discuss with the specialist as well Michael Puga DO * Telephone Encounter - Loli Adamson RN - 03/31/2023 2:45 PM EST Patient asking if pcp ever communicated with Dr. Hickey about her diltiazem making her tired. Pleaseadvise patient. documented in this encounterCincinnati [facility] Center09-11-2023 Miscellaneous Notes* Telephone Encounter - Amanda Pratt RN - 01/11/2023 11:25 AM EDT Order and demographics faxed to Dr. Alcala. Patient notified. * Telephone Encounter - Key Portillo APRN.CNP - 01/11/2023 10:18 AM EDT Order placed. Please fax. Thank you, Key Portillo APRN.GERICARE AIDE * Telephone Encounter - Amanda Pratt RN - 01/11/2023 9:57 AM EDT Patient calls to report that at last OV it was discussed that patient needed to have a sleep study done. Patient requesting to have done with Dr. Alcala and needs to have order/reason for testing faxed to [phone]. Noted referral to pulmonary medicine which was completed but no order for sleep study. Not pended. Wasn't sure what provider wanted. Amanda Pratt RN documented in this encounterCincinnati Va Medical Center08-31-2023 Miscellaneous Notes* Telephone Encounter - Chloe Castro LPN - 12/31/2022 8:43 AM EDT Spoke with pt and information listed below given. Pt verbalizes understanding. Transferred pt to maintenance scheduler to get apt booked. Chloe Castro [...] I would like her to see the Quantitative Analyst Marketing for opinion to determine if any chance ofasthma or COPD present Michael Puga DO documented in this encounterCincinnati [facility] Medical Center08-28-2023 History of Present illness Narrative* Lexi Peacock RPFT - 12/28/2022 2:00 PM EDT PULM FUNCTION SMARTBLOCK: Provider: Michael Puga DO Assisting Tech: Lexi Peacock RPFT Spirometry w/BD: 1 documented in this encounterCincinnati Va Medical Center08-22-2023 History of Present illness Narrative* Michael Puga [...] he was just recently moved into a half-way. + fatigue, admits that she doesn't want [...] hydrochlorothiazide which dose was recently increased by Computer Methods Analyst. Feels this doesn't make her feel well. Fatigue symptoms, feels she is more isolated for the last 2 years since covid 19 pandemic and limitations with getting out with friends. Also brother Serg is in half-way/ECF now and she is home alone. Has [...] have symptoms. Has recently seen Dr. Hickey Computer Methods Analyst and had repeat ECHOand other cardiac testing [...] COMPARTMENTS 11/15/2009 Knee replacement, total -Left - [facility] ARTHRP KNE CONDYLE&PLATU MEDIAL&LAT COMPARTMENTS 12/30/2009 Right knee replaced COLONOSCOPY FLX DX W/COLLJ SPEC WHEN PFRMD 06/29/2017 Colonoscopy EGD 10/17/2020 EGD W/O [facility] SPEC VARICIES INJ 01/08/2022 ESOPHAGOGASTRODUODENOSCOPY TRANSORAL DIAGNOSTIC [...] plan. See patient instructions. Michael Puga DO [address] [place] [address] documented in this encounterCincinnati [facility] Medical Center05-31-2023 Miscellaneous Notes* Telephone Encounter - Asia Rosales APRN.GERICARE AIDE - 09/30/2022 5:39 PM EDT The following [...] advise. Yvonne Nix Pss documented in this encounterCincinnati Va Medical Center02-27-2023 Miscellaneous Notes* Telephone Encounter - Julianna Valladares [...] patient. Julianna Valladares Pss documented in this encounterCincinnati Va Medical Center02-20-2023 Instructions* Patient Instructions* Michael Puga DO - 06/22/2022 12:14 PM EST STOP Metformin medication Increase fluid intake to at least 60 oz of water a day Increase protein intake in your diet- protein drink daily Increase iron supplement to twice a day with a meal documented in this encounterCincinnati Va Medical Center02-20-2023 History of Present illness Narrative* Michael Puga [...] he was just recently moved into a half-way. + fatigue, admits that she doesn't want [...] hydrochlorothiazide which dose was recently increased by Computer Methods Analyst. Feels this doesn't make her feel well. Fatigue symptoms, feels she is more isolated for the last 2 years since covid 19 pandemic and limitations with getting out with friends. Also brother Serg is in half-way/ECF now and she is home alone. Has [...] COMPARTMENTS 11/15/2009 Knee replacement, total -Left - [facility] ARTHRP KNE CONDYLE&PLATU MEDIAL&LAT COMPARTMENTS 12/30/2009 Right knee replaced COLONOSCOPY FLX DX W/COLLJ SPEC WHEN PFRMD 06/29/2017 Colonoscopy EGD 10/17/2020 EGD W/O [facility] SPEC VARICIES INJ 01/08/2022 ESOPHAGOGASTRODUODENOSCOPY TRANSORAL DIAGNOSTIC [...] See patient instructions. Michael Puga DO [address] [place] [address] documented in this encounterCincinnati Va Medical Center02-08-2023 Miscellaneous Notes* Telephone Encounter - Carie Lora RN - 06/10/2022 12:43 PM EST Spoke with patient. Given message from provider's office. Patient verbalizes understanding. Carie Lora RN * Telephone Encounter - Jacque Machuca - 06/10/2022 11:49 AM EST Left message for patient to return call. Echo results faxed to [facility] office 06/10/2022 ALEX Machuca * Telephone Encounter - Key Portillo APRN.GERICARE AIDE - 06/10/2022 10:56 AM EST Please call patient and let her know that ECHO shows no acute concerns. I have no ECHO in our system to compare to. Please fax this result to Dr. Hickey's office for review. Thank you, Key Portillo APRN.CNP documented in this encounterCincinnati [facility] Medical Center02-06-2023 Miscellaneous Notes* Telephone Encounter - Jacque Machuca [...] you, Key Portillo APRN.CNP documented in this encounterCincinnati Va Medical Center02-06-2023 Miscellaneous Notes* Telephone Encounter - Key Portillo APRN.CNP - 06/08/2022 7:48 AM EST I agree with 25 mg tablets. Thank you, Key Portillo APRN.GERICARE AIDE * Telephone Encounter - Nadine Colon LPN - 06/05/2022 3:09 PM EST Stephy from [facility] pharmacy calling asking about HCTZ 12.5 mg 2 daily only was sent for 30,asking to have rx increased to 60 for a month supply. Read office visit notes and said HCTZ 25 mg daily, gave verbal to change rx to 60 for month supply on the rx. * Telephone Encounter - Loli Adamson RN - 06/05/2022 10:44 AM EST [facility] [place] reports they received the hctz 12.5 mg Rx take 2 caps daily, disp # 30. Asking doing you want them to give patient the 25 mg caps and disp # 30 or give patient the 12.5 mg caps and disp # 60? Please phone pharmacy with reply. documented in this encounterCincinnati [facility] Medical Center02-02-2023 Instructions* Patient Instructions* Key Portillo APRN.CNP - 06/04/2022 3:07 PM EST Mounjaro --- weekly Trulcity -- Weekly Victoza -- daily Saxenda -- Daily Start HCTZ 12.5 mg daily for BP and swelling in legs. Follow-up in 1 month to reassess BP. Will assess GLP-1 injection at this time as well. Blood work today. EKG today. Schedule ECHO documented in this encounterCincinnati Va Medical Center02-02-2023 History of Present illness Narrative* Key Portillo [...] COMPARTMENTS 11/15/2009 Knee replacement, total -Left - [facility] ARTHRP KNE CONDYLE&PLATU MEDIAL&LAT COMPARTMENTS 12/30/2009 Right knee replaced COLONOSCOPY FLX DX W/COLLJ SPEC WHEN PFRMD 06/29/2017 Colonoscopy EGD 10/17/2020 EGD W/O [facility] SPEC VARICIES INJ 01/08/2022 ESOPHAGOGASTRODUODENOSCOPY TRANSORAL DIAGNOSTIC [...] Patient agreeable to treatment plan. Key Abrams APRN.GERICARE AIDE [address] [place] [address] documented in this encounterCincinnati Va Medical Center01-31-2023 History of Present illness Narrative* Anita Box MA - 06/02/2022 1:51 PM EST POPULATION HEALTH NAVIGATION OUTREACH Action/I H@[facility] Call in. Received warm transfer from NurseAyden [...] 02, 2022 1:53 PM documented in this encounterCincinnati Va Medical Center01-31-2023 Miscellaneous Notes* Telephone Encounter - Magaly Fontana [...] PCP Within 3 days. Warm transfer to [facility] in [place]. 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 Hello, you've reached [facility], my name is Magaly [...] breakfast. Requesting glucometer meter and supplies from [facility] in [place] Based on what you've told me, I [...] : N/A Protocols used: Weakness (Generalized) and [id number] documented in this encounterCincinnati Va Medical Center12-27-2022 Miscellaneous Notes* Telephone Encounter - Julianna Cano [...] advise, Bhavna Arauz RN documented in this encounterCincinnati Va Medical Center12-20-2022 History of Present illness Narrative* Michael Puga [...] he was just recently moved into a half-way. + fatigue, admits that she doesn't want [...] hydrochlorothiazide which dose was recently increased by Computer Methods Analyst. Feels this doesn't make her feel well. Fatigue symptoms, feels she is more isolated for the last 2 years since covid 19 pandemic and limitations with getting out with friends. Also brother Serg is in half-way/ECF now and she is home alone. Has [...] these. Atrial fibrillation, hx of CAD, seeing Computer Methods Analyst regularly Insomnia, long standing, thinks this is [...] Knee replacement, total -Left - [facility] ARTHRP KNE CONDYLE&PLATU MEDIAL&LAT COMPARTMENTS 12/30/2009 Right knee replaced COLONOSCOPY FLX DX W/COLLJ SPEC WHEN PFRMD 06/29/2017 Colonoscopy EGD 10/17/2020 EGD W/O [facility] SPEC VARICIES INJ 01/08/2022 ESOPHAGOGASTRODUODENOSCOPY TRANSORAL DIAGNOSTIC [...] See patient instructions. Michael Puga DO [address] [place] [address] documented in this encounterCincinnati Va Medical Center10-17-2022 History of Present illness Narrative* Michael Puga [...] he was just recently moved into a half-way. + fatigue, admits that she doesn't want [...] hydrochlorothiazide which dose was recently increased by Computer Methods Analyst. Feels this doesn't make her feel well. Fatigue symptoms, feels she is more isolated for the last 2 years since covid 19 pandemic and limitations with getting out with friends. Also brother Serg is in half-way/ECF now and she is home alone. Has [...] COMPARTMENTS 11/15/2009 Knee replacement, total -Left - [facility] ARTHRP KNE CONDYLE&PLATU MEDIAL&LAT COMPARTMENTS 12/30/2009 Right knee replaced COLONOSCOPY FLX DX W/COLLJ SPEC WHEN PFRMD 06/29/2017 Colonoscopy EGD 10/17/2020 EGD W/O [facility] SPEC VARICIES INJ 01/08/2022 ESOPHAGOGASTRODUODENOSCOPY TRANSORAL DIAGNOSTIC [...] See patient instructions. Michael Puga DO [address] [place] [address] documented in this encounterCincinnati Va Medical Center09-16-2022 History of Present illness Narrative* Raymundo De [...] needed at this time. documented in this encounterCincinnati Va Medical Center09-08-2022 History and physical note * Raymundo De [...] COMPARTMENTS 11/15/2009 Knee replacement, total -Left - [facility] ARTHRP KNE CONDYLE&PLATU MEDIAL&LAT COMPARTMENTS 12/30/2009 Right [...] entered by the nurse and reviewed by wi Nursing Notes: Portia Camarillo RN 12/18/2021 3:15 [...] 2022 TIME: 1:00 PM documented in this encounterCincinnati Va Medical Center09-08-2022 Nurse Note* Nyla Fraga RN - 01/08/2022 2:05 PM EDT Patient arrived laying on left side. States that she is not having any pain at this time. Patient'sabdomen appears to be nondistended and soft at this time. documented in this encounterCincinnati Va Medical Center08-31-2022 Miscellaneous Notes* Telephone Encounter - Joshua King - 12/31/2021 11:49 AM EDT Received last note and Pacer check from [facility]. Scanned into [employer] and given to [facility] nurses to review Joshua King documented in this encounterCincinnati [facility] Center08-18-2022 History of Present illness Narrative* Raymundo De [...] Knee replacement, total -Left - [facility] ARTHRP KNE CONDYLE&PLATU MEDIAL&LAT COMPARTMENTS 12/30/2009 [...] entered by the nurse and reviewed by wi Nursing Notes: Portia Camarillo RN 12/18/2021 3:15 [...] De León III, MD documented in this encounterCincinnati [facility] Medical Center08-18-2022 Nurse Note* Portia Camarillo RN - 12/18/2021 [...] 06/29/2017 Portia Camarillo RN documented in this encounterCincinnati Va Medical Center06-20-2022 History of Present illness Narrative* Nunu Gonzalez [...] sooner. Nunu Gonzalez PA-C documented in this encounterCincinnati [facility] Medical Center02-18-2022 Miscellaneous Notes* Telephone Encounter - Jacque Dumont Ma - 06/20/2021 8:08 AM EST Pt notified and verbalized understanding Jacque Dumont Ma * Telephone Encounter - Asia Rosales APRN.CNP - 06/19/2021 5:43 PM EST Please let Michael know that her lab results look good, no concerns. Asia Rosales APRN.CNP documented in this encounterCincinnati [facility] Medical Center02-07-2022 Evaluation note* Diagnosis Onset Date Resolution Status [...] Paroxysmal atrial fibrillation chronic Sick sinus syndrome [facility] Work Phone: [phone]) 737-132306-17-2021 History of Past illness Narrative* Problem Noted [...] 03/11/2015 Last Assessment & Plan: Dx. after [facility] 2009 Actinic keratosis 01/20/2007 03/11/2015 Other chronic [...] of this encounter (statuses as of 09/02/2021) [facility] of Past illness Narrative* Problem Noted [...] Last Assessment & Plan: Dx. after LTK [facility] 2010 Actinic keratosis 01/20/2007 03/11/2015 Other chronic [...] of this encounter (statuses as of 09/03/2021) [facility] of Past illness Narrative* Problem Noted [...] 03/11/2015 Last Assessment & Plan: Dx. after [facility] 2009 Actinic keratosis 01/20/2007 03/11/2015 Other chronic [...] of this encounter (statuses as of 10/20/2021) [facility] of Past illness Narrative* Problem Noted [...] 03/11/2015 Last Assessment & Plan: Dx. after [facility] 2009 Actinic keratosis 01/20/2007 03/11/2015 Other chronic [...] of this encounter (statuses as of 12/21/2021) [facility] of Past illness Narrative* Problem Noted [...] 03/11/2015 Last Assessment & Plan: Dx. after [facility] 2009 Actinic keratosis 01/20/2007 03/11/2015 Other chronic [...] of this encounter (statuses as of 12/31/2021) [facility] of [facility] illness Narrative* Problem Noted [...] 03/11/2015 Last Assessment & Plan: Dx. after [facility] 2009 Actinic keratosis 01/20/2007 03/11/2015 Other chronic [...] of this encounter (statuses as of 01/09/2022) [facility] of [facility] Narrative* Problem Noted [...] 03/11/2015 Last Assessment & Plan: Dx. after [facility] 2009 Actinic keratosis 01/20/2007 03/11/2015 Other chronic [...] of this encounter (statuses as of 01/16/2022) [facility] Narrative* Problem Noted [...] 03/11/2015 Last Assessment & Plan: Dx. after [facility] 2009 Actinic keratosis 01/20/2007 03/11/2015 Other chronic [...] of this encounter (statuses as of 02/17/2022) [facility] Narrative* Problem Noted [...] 03/11/2015 Last Assessment & Plan: Dx. after [facility] 2009 Actinic keratosis 01/20/2007 03/11/2015 Other chronic [...] of this encounter (statuses as of 04/21/2022) [facility] Narrative* Problem Noted [...] 03/11/2015 Last Assessment & Plan: Dx. after [facility] 2009 Actinic keratosis 01/20/2007 03/11/2015 Other chronic [...] of this encounter (statuses as of 05/03/2022) [facility] Narrative* Problem Noted [...] 03/11/2015 Last Assessment & Plan: Dx. after [facility] 2009 Actinic keratosis 01/20/2007 03/11/2015 Other chronic [...] of this encounter (statuses as of 06/02/2022) [facility] Narrative* Problem Noted [...] 03/11/2015 Last Assessment & Plan: Dx. after [facility] 2009 Actinic keratosis 01/20/2007 03/11/2015 Other chronic [...] of this encounter (statuses as of 06/04/2022) [facility] Narrative* Problem Noted [...] 03/11/2015 Last Assessment & Plan: Dx. after [facility] 2009 Actinic keratosis 01/20/2007 03/11/2015 Other chronic [...] of this encounter (statuses as of 06/08/2022) [facility] Narrative* Problem Noted [...] 03/11/2015 Last Assessment & Plan: Dx. after [facility] 2009 Actinic keratosis 01/20/2007 03/11/2015 Other chronic [...] of this encounter (statuses as of 06/10/2022) [facility] Narrative* Problem Noted [...] 03/11/2015 Last Assessment & Plan: Dx. after [facility] 2010 Actinic keratosis 01/20/2007 03/11/2015 Other chronic [...] of this encounter (statuses as of 06/23/2022) [facility] Narrative* Problem Noted [...] 03/11/2015 Last Assessment & Plan: Dx. after [facility] 2009 Actinic keratosis 01/20/2007 03/11/2015 Other chronic [...] of this encounter (statuses as of 06/30/2022) [facility] Narrative* Problem Noted [...] 03/11/2015 Last Assessment & Plan: Dx. after [facility] 2009 Actinic keratosis 01/20/2007 03/11/2015 Other chronic [...] of this encounter (statuses as of 10/01/2022) [facility] Narrative* Problem Noted [...] 03/11/2015 Last Assessment & Plan: Dx. after [facility] 2009 Actinic keratosis 01/20/2007 03/11/2015 Other chronic [...] of this encounter (statuses as of 12/23/2022) [facility] Narrative* Problem Noted [...] 03/11/2015 Last Assessment & Plan: Dx. after [facility] 2009 Actinic keratosis 01/20/2007 03/11/2015 Other chronic [...] of this encounter (statuses as of 12/29/2022) [facility] Narrative* Problem Noted [...] 03/11/2015 Last Assessment & Plan: Dx. after [facility] 2009 Actinic keratosis 01/20/2007 03/11/2015 Other chronic [...] of this encounter (statuses as of 12/31/2022) [facility] Narrative* Problem Noted [...] 03/11/2015 Last Assessment & Plan: Dx. after [facility] 2009 Actinic keratosis 01/20/2007 03/11/2015 Other chronic [...] of this encounter (statuses as of 01/11/2023) [facility] Narrative* Problem Noted [...] 03/11/2015 Last Assessment & Plan: Dx. after [facility] 2010 Actinic keratosis 01/20/2007 03/11/2015 Other chronic [...] of this encounter (statuses as of 03/07/2023) [facility] Narrative* Problem Noted [...] 03/11/2015 Last Assessment & Plan: Dx. after [facility] 2009 Actinic keratosis 01/20/2007 03/11/2015 Other chronic [...] of this encounter (statuses as of 04/02/2023) [facility] Narrative* Problem Noted [...] 03/11/2015 Last Assessment & Plan: Dx. after [facility] 2009 Actinic keratosis 01/20/2007 03/11/2015 Other chronic [...] of this encounter (statuses as of 04/08/2023) [facility]* Diagnosis Urinary frequency- Primary Glucosuria Glycosuria documented in this encounter [facility] CenterEvaludel[facility]* Diagnosis Gastroesophageal reflux disease with esophagitis without hemorrhage- Primary documented in this encounter [facility]Eval[facility]* Diagnosis Gastroesophageal reflux disease, unspecified whether esophagitis present- Primary Gastroesophageal reflux disease with esophagitis without hemorrhage documented in this encounter [facility] CenterEvaluation [facility]* Diagnosis Gastroesophageal reflux disease with esophagitis without hemorrhage- Primary documented in this encounter [facility] CenterEvaluation [facility]* Diagnosis Dysthymia- Primary Dysthymic disorder Need for influenza vaccination Need for prophylactic vaccination and inoculation against influenza Arthritis, multiple joint involvement Unspecified arthropathy, multiple sites IFG (impaired fasting glucose) Impaired fasting glucose Obesity, Class II, BMI 35-39.9 Obesity, unspecified Fatigue, unspecified type Iron deficiency Iron deficiency anemia, unspecified documented in this encounter [facility]Evaludel[facility]* Diagnosis Dysthymia- Primary Dysthymic disorder Situational insomnia Transient disorder of initiating or maintaining sleep Arthritis, multiple joint involvement Unspecified arthropathy, multiple sites IFG (impaired fasting glucose) Impaired fasting glucose Obesity, Class II, BMI 35-39.9 Obesity, unspecified Fatigue, unspecified type Iron deficiency Iron deficiency anemia, unspecified [facility] Diagnosis Fatigue, unspecified type- Primary SOB (shortness of breath) on exertion Shortness of breath Hyperlipidemia, unspecified hyperlipidemia type Obesity, Class II, BMI 35-39.9 Obesity, unspecified IFG (impaired fasting glucose) Impaired fasting glucose Iron deficiency anemia, unspecified iron deficiency anemia type Vitamin D deficiency Unspecified vitamin D deficiency Bilateral leg edema Edema Primary hypertension Unspecified essential hypertension [facility] Diagnosis Iron deficiency- Primary Iron deficiency [...] arthropathy, multiple sites [facility] Diagnosis Situational insomnia Transient disorder of initiating or maintaining sleep Situational mixed anxiety and depressive disorder Adjustment disorder with mixed anxiety and depressed mood [facility] Diagnosis TIA (transient ischemic attack) Unspecified transient cerebral ischemia Hyperlipidemia, unspecified hyperlipidemia type Anxiety Anxiety state, unspecified [facility] Diagnosis WELCH (dyspnea on exertion)- Primary Other dyspnea and respiratory abnormality Fatigue, unspecified type Obesity, Class II, BMI 35-39.9 Obesity, unspecified IFG (impaired fasting glucose) Impaired fasting glucose Vitamin B12 deficiency Other B-complex deficiencies Primary hypertension Unspecified essential hypertension Disorder of carotid artery (HCC) Unspecified disorders of arteries and arterioles [facility] Diagnosis WELCH (dyspnea on exertion) Other dyspnea and respiratory abnormality [facility] Diagnosis Obstructive lung disease (HCC)- Primary Chronic airway obstruction, not elsewhere classified WELCH (dyspnea on exertion) Other dyspnea and respiratory abnormality [facility] Diagnosis Fatigue, unspecified type- Primary [facility] Diagnosis WELCH (dyspnea on exertion) Other dyspnea and respiratory abnormality [facility] Diagnosis Subclinical hypothyroidism- Primary Other specified [...] trunk, except scrotum [facility] Diarrhea, unspecified type- Primary [facility] Diagnosis Hospital discharge follow-up- Primary Other [...] Unspecified essential hypertension [facility] Diagnosis Situational insomnia Transient disorder of initiating or maintaining sleep Situational mixed anxiety and depressive disorder Adjustment disorder with mixed anxiety and depressed mood [facility] Diagnosis Chronic respiratory failure with hypoxia (HCC)- Primary Chronic respiratory failure Sleep disturbances Sleep disturbance, unspecified [facility] Diagnosis Weakness- Primary Other malaise and fatigue Difficulty walking Difficulty in walking Imbalance Abnormality of gait [facility] Weakness- Primary Other malaise and fatigue Difficulty walking Difficulty in walking Imbalance Abnormality of gait [facility] Diagnosis Weakness- Primary Other malaise and fatigue Difficulty walking Difficulty in walking Imbalance Abnormality of gait [facility] Diagnosis Acute bronchitis, unspecified organism- [...] trunk, except scrotum [facility] Diagnosis Weakness- Primary Other malaise and fatigue [facility] Diagnosis Weakness- Primary Other malaise and fatigue Difficulty walking Difficulty in walking Imbalance Abnormality of gait [facility]* Diagnosis Arthritis, multiple joint involvement- Primary Unspecified arthropathy, multiple sites Spinal stenosis of lumbar region without neurogenic claudication Spinal stenosis, lumbar region, without neurogenic claudication [facility]* Diagnosis Weakness- Primary Other malaise and fatigue Imbalance Abnormality of gait Difficulty walking Difficulty in walking [facility] Diagnosis Weakness- Primary Other malaise and fatigue Imbalance Abnormality of gait [facility] Diagnosis Weakness- Primary Other malaise and fatigue Imbalance Abnormality of gait Difficulty walking Difficulty in walking [facility] Diagnosis Weakness- Primary Other malaise and fatigue Imbalance Abnormality of gait Difficulty walking Difficulty in walking [facility] Diagnosis Weakness- Primary Other malaise and fatigue Imbalance Abnormality of gait [facility] Diagnosis Difficulty walking- Primary Difficulty in walking Imbalance Abnormality of gait Weakness Other malaise and fatigue [facility]* Diagnosis Arthritis, multiple joint involvement- Primary Unspecified arthropathy, multiple sites Anxiety Anxiety state, unspecified Need for influenza vaccination Need for prophylactic vaccination and inoculation against influenza Epigastric abdominal pain Abdominal pain, epigastric Obstructive lung disease (HCC) Chronic airway obstruction, not elsewhere classified Gait abnormality Abnormality of gait Imbalance Abnormality of gait [facility] Diagnosis Difficulty walking- Primary Difficulty in walking Imbalance Abnormality of gait Weakness Other malaise and fatigue [facility] Diagnosis Epigastric abdominal pain- Primary Abdominal pain, epigastric Pulmonary hypertension (HCC) Other chronic pulmonary heart diseases [facility]* Diagnosis Difficulty walking- Primary Difficulty in walking Imbalance Abnormality of gait Weakness Other malaise and fatigue [facility] Diagnosis Difficulty walking- Primary Difficulty in walking Imbalance Abnormality of gait Weakness Other malaise and fatigue [facility]* Diagnosis Difficulty walking- Primary Difficulty in walking Imbalance Abnormality of gait Weakness Other malaise and fatigue [facility]* Diagnosis Pre-operative examination- Primary Preoperative examination, unspecified JOSE on CPAP Obstructive sleep apnea (adult) (pediatric) Obstructive lung disease (HCC) Chronic airway obstruction, not elsewhere classified Primary hypertension Unspecified essential hypertension Hyperlipidemia, unspecified hyperlipidemia type Cardiac resynchronization therapy pacemaker (IMPORT COORDINATOR-P) in place Paroxysmal atrial fibrillation (HCC) Atrial [...] EST Associated Problem(s): Cardiac resynchronization therapy pacemaker (IMPORT COORDINATOR-P) in place Assessment: s/p 10/2021 ICD placement, [...] Assessment: c/w CPAP documented in this encounter [facility] note* Diagnosis Pre-operative examination- Primary Preoperative examination, unspecified JOSE on CPAP Obstructive sleep apnea (adult) (pediatric) Obstructive lung disease (HCC) Chronic airway obstruction, not elsewhere classified Primary hypertension Unspecified essential hypertension Hyperlipidemia, unspecified hyperlipidemia type Cardiac resynchronization therapy pacemaker (IMPORT COORDINATOR-P) in place Paroxysmal atrial fibrillation (HCC) Atrial [...] pulmonary heart diseases documented in this encounter [facility] note* Diagnosis Pre-operative examination- Primary Preoperative examination, unspecified JOSE on CPAP Obstructive sleep apnea (adult) (pediatric) Obstructive lung disease (HCC) Chronic airway obstruction, not elsewhere classified Primary hypertension Unspecified essential hypertension Hyperlipidemia, unspecified hyperlipidemia type Cardiac resynchronization therapy pacemaker (IMPORT COORDINATOR-P) in place Paroxysmal atrial fibrillation (HCC) Atrial [...] without bleeding- Primary [facility] Diagnosis Pre-operative examination- Primary Preoperative examination, unspecified JOSE on CPAP Obstructive sleep apnea (adult) (pediatric) Obstructive lung disease (HCC) Chronic airway obstruction, not elsewhere classified Primary hypertension Unspecified essential hypertension Hyperlipidemia, unspecified hyperlipidemia type Cardiac resynchronization therapy pacemaker (IMPORT COORDINATOR-P) in place Paroxysmal atrial fibrillation (HCC) Atrial [...] malaise and fatigue documented in this encounter [facility] note* Diagnosis Pre-operative examination- Primary Preoperative examination, unspecified JOSE on CPAP Obstructive sleep apnea (adult) (pediatric) Obstructive lung disease (HCC) Chronic airway obstruction, not elsewhere classified Primary hypertension Unspecified essential hypertension Hyperlipidemia, unspecified hyperlipidemia type Cardiac resynchronization therapy pacemaker (IMPORT COORDINATOR-P) in place Paroxysmal atrial fibrillation (HCC) Atrial [...] Abnormality of gait [facility] Diagnosis Pre-operative examination- Primary Preoperative examination, unspecified JOSE on CPAP Obstructive sleep apnea (adult) (pediatric) Obstructive lung disease (HCC) Chronic airway obstruction, not elsewhere classified Primary hypertension Unspecified essential hypertension Hyperlipidemia, unspecified hyperlipidemia type Cardiac resynchronization therapy pacemaker (IMPORT COORDINATOR-P) in place Paroxysmal atrial fibrillation (HCC) Atrial [...] and depressed mood documented in this encounter [facility] note* Diagnosis Pre-operative examination- Primary Preoperative examination, unspecified JOSE on CPAP Obstructive sleep apnea (adult) (pediatric) Obstructive lung disease (HCC) Chronic airway obstruction, not elsewhere classified Primary hypertension Unspecified essential hypertension Hyperlipidemia, unspecified hyperlipidemia type Cardiac resynchronization therapy pacemaker (IMPORT COORDINATOR-P) in place Paroxysmal atrial fibrillation (HCC) Atrial [...] legs syndrome (RLS) documented in this encounter [facility] note* Diagnosis Pre-operative examination- Primary Preoperative examination, unspecified JOSE on CPAP Obstructive sleep apnea (adult) (pediatric) Obstructive lung disease (HCC) Chronic airway obstruction, not elsewhere classified Primary hypertension Unspecified essential hypertension Hyperlipidemia, unspecified hyperlipidemia type Cardiac resynchronization therapy pacemaker (IMPORT COORDINATOR-P) in place Paroxysmal atrial fibrillation (HCC) Atrial [...] Anxiety state, unspecified [facility] Diagnosis Pre-operative examination- Primary Preoperative examination, unspecified JOSE on CPAP Obstructive sleep apnea (adult) (pediatric) Obstructive lung disease (HCC) Chronic airway obstruction, not elsewhere classified Primary hypertension Unspecified essential hypertension Hyperlipidemia, unspecified hyperlipidemia type Cardiac resynchronization therapy pacemaker (IMPORT COORDINATOR-P) in place Paroxysmal atrial fibrillation (HCC) Atrial [...] failure type (HCC) [facility]* Diagnosis Pre-operative examination- Primary Preoperative examination, unspecified JOSE on CPAP Obstructive sleep apnea (adult) (pediatric) Obstructive lung disease (HCC) Chronic airway obstruction, not elsewhere classified Primary hypertension Unspecified essential hypertension Hyperlipidemia, unspecified hyperlipidemia type Cardiac resynchronization therapy pacemaker (IMPORT COORDINATOR-P) in place Paroxysmal atrial fibrillation (HCC) Atrial [...] unspecified HF chronicity, unspecified heart failure type ([facility]) [facility] Pre-operative examination- Primary Preoperative examination, unspecified JOSE on CPAP Obstructive sleep apnea (adult) (pediatric) Obstructive lung disease (HCC) Chronic airway obstruction, not elsewhere classified Primary hypertension Unspecified essential hypertension Hyperlipidemia, unspecified hyperlipidemia type Cardiac resynchronization therapy pacemaker (IMPORT COORDINATOR-P) in place Paroxysmal atrial fibrillation (HCC) Atrial [...] arthropathy, multiple sites [facility] Diagnosis Pre-operative examination- Primary Preoperative examination, unspecified JOSE on CPAP Obstructive sleep apnea (adult) (pediatric) Obstructive lung disease (HCC) Chronic airway obstruction, not elsewhere classified Primary hypertension Unspecified essential hypertension Hyperlipidemia, unspecified hyperlipidemia type Cardiac resynchronization therapy pacemaker (IMPORT COORDINATOR-P) in place Paroxysmal atrial fibrillation (HCC) Atrial [...] pulmonary heart diseases documented in this encounter [facility] note* Diagnosis Pre-operative examination- Primary Preoperative examination, unspecified JOSE on CPAP Obstructive sleep apnea (adult) (pediatric) Obstructive lung disease (HCC) Chronic airway obstruction, not elsewhere classified Primary hypertension Unspecified essential hypertension Hyperlipidemia, unspecified hyperlipidemia type Cardiac resynchronization therapy pacemaker (IMPORT COORDINATOR-P) in place Paroxysmal atrial fibrillation (HCC) Atrial [...] Chronic respiratory failure documented in this encounter [facility] note* Diagnosis Pre-operative examination- Primary Preoperative examination, unspecified JOSE on CPAP Obstructive sleep apnea (adult) (pediatric) Obstructive lung disease (HCC) Chronic airway obstruction, not elsewhere classified Primary hypertension Unspecified essential hypertension Hyperlipidemia, unspecified hyperlipidemia type Cardiac resynchronization therapy pacemaker (IMPORT COORDINATOR-P) in place Paroxysmal atrial fibrillation (HCC) Atrial [...] Chronic respiratory failure documented in this encounter [facility] note* Diagnosis Pre-operative examination- Primary Preoperative examination, unspecified JOSE on CPAP Obstructive sleep apnea (adult) (pediatric) Obstructive lung disease (HCC) Chronic airway obstruction, not elsewhere classified Primary hypertension Unspecified essential hypertension Hyperlipidemia, unspecified hyperlipidemia type Cardiac resynchronization therapy pacemaker (IMPORT COORDINATOR-P) in place Paroxysmal atrial fibrillation (HCC) Atrial [...] arthropathy, multiple sites [facility]* Diagnosis Pre-operative examination- Primary Preoperative examination, unspecified JOSE on CPAP Obstructive sleep apnea (adult) (pediatric) Obstructive lung disease (HCC) Chronic airway obstruction, not elsewhere classified Primary hypertension Unspecified essential hypertension Hyperlipidemia, unspecified hyperlipidemia type Cardiac resynchronization therapy pacemaker (IMPORT COORDINATOR-P) in place Paroxysmal atrial fibrillation (HCC) Atrial [...] Abnormality of gait [facility] Diagnosis Pre-operative examination- Primary Preoperative examination, unspecified JOSE on CPAP Obstructive sleep apnea (adult) (pediatric) Obstructive lung disease (HCC) Chronic airway obstruction, not elsewhere classified Primary hypertension Unspecified essential hypertension Hyperlipidemia, unspecified hyperlipidemia type Cardiac resynchronization therapy pacemaker (IMPORT COORDINATOR-P) in place Paroxysmal atrial fibrillation (HCC) Atrial [...] Abnormality of gait [facility] Diagnosis Pre-operative examination- Primary Preoperative examination, unspecified JOSE on CPAP Obstructive sleep apnea (adult) (pediatric) Obstructive lung disease (HCC) Chronic airway obstruction, not elsewhere classified Primary hypertension Unspecified essential hypertension Hyperlipidemia, unspecified hyperlipidemia type Cardiac resynchronization therapy pacemaker (IMPORT COORDINATOR-P) in place Paroxysmal atrial fibrillation (HCC) Atrial [...] Abnormality of gait [facility] Diagnosis Pre-operative examination- Primary Preoperative examination, unspecified JOSE on CPAP Obstructive sleep apnea (adult) (pediatric) Obstructive lung disease (HCC) Chronic airway obstruction, not elsewhere classified Primary hypertension Unspecified essential hypertension Hyperlipidemia, unspecified hyperlipidemia type Cardiac resynchronization therapy pacemaker (IMPORT COORDINATOR-P) in place Paroxysmal atrial fibrillation (HCC) Atrial [...] Abnormality of gait [facility] noteNo assessment information availableBlCottage Children[facility] Work Phone: Evaluation note* Diagnosis Onset Date Resolution Status Admit Date WELCH (dyspnea on exertion) acute November 02, 2024 9:16am 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 acute November 02, 2024 9:16am Pulmonary hypertension acute Ju 2024 9:16am Right carotid bruit acute November 02, 2024 9:16am Essential (primary) hypertension chronic November 02, 2024 9:16am History of permanent cardiac pacemaker placement June 09, 2021 chronic J [id number] 9:16am Paroxysmal atrial fibrillation chronic November 02, 2024 9:16am [facility] Work Phone: Evaluation note* Diagnosis Pre-operative examination- Primary Preoperative examination, unspecified JOSE on CPAP Obstructive sleep apnea (adult) (pediatric) Obstructive lung disease (HCC) Chronic airway obstruction, not elsewhere classified Primary hypertension Unspecified essential hypertension Hyperlipidemia, unspecified hyperlipidemia type Cardiac resynchronization therapy pacemaker (IMPORT COORDINATOR-P) in place Paroxysmal atrial fibrillation (HCC) Atrial [...] Anxiety state, unspecified documented in this encounter [facility] note* Diagnosis Pre-operative examination- Primary Preoperative examination, unspecified JOSE on CPAP Obstructive sleep apnea (adult) (pediatric) Obstructive lung disease (HCC) Chronic airway obstruction, not elsewhere classified Primary hypertension Unspecified essential hypertension Hyperlipidemia, unspecified hyperlipidemia type Cardiac resynchronization therapy pacemaker (IMPORT COORDINATOR-P) in place Paroxysmal atrial fibrillation (HCC) Atrial [...] unspecified hyperlipidemia type documented in this encounter [facility] for referral (narrative)* Outpatient Procedure (Routine) - Authorized Specialty Diagnoses / Procedures [facility] Diagnoses Gastroesophageal reflux disease with esophagitis without hemorrhage Procedures EGD DIAGNOSTIC ESOPHAGOGASTRODUODENOSC OPY TRANSORAL DIAGNOSTIC Raymundo De León MD [address] [place] [address] [place] [address] Referral ID Status Reason Start Date Expiration Date Visits Requested Visits Authorized [id number] Authorized Auto-Generat ed Referral 12/18/2021 12/18/2022 1 1 [facility] for referral (narrative)* Outpatient Procedure (Routine) - Closed Specialty Diagnoses / Procedures [facility] Referred To Contact [facility] Diagnoses Gastroesophageal reflux disease with esophagitis without hemorrhage Procedures EGD DIAGNOSTIC ESOPHAGOGASTRODUODENOSC OPY TRANSORAL DIAGNOSTIC Raymundo De León MD [address] [place] [address] [place] [address] Referral ID Status Reason Start Date Expiration Date V isits Requested Visits Authorized [id number] Closed Auto-Generate d Referral 12/18/2021 12/18/2022 1 1 [facility] for referral (narrative)* Outpatient Procedure (Routine) - Authorized Specialty Diagnoses / Procedures [facility] To Contact [facility] Diagnoses SOB (shortness of breath) on exertion Procedures ECHO ECHO TTHRC R-T 2D W/WOM-MODE COMPL SPEC&COLR D Key Portillo APRN.[employer] A[facility] [address] [place] [address] [facility] [address] [address] Referral ID Status Reason Start Date Expiration Date Visits Requested Visits Authorized [id number] Authorized Auto-Generat ed Referral 06/04/2022 06/04/2023 1 1 * Outpatient Procedure (Routine) - Closed Specialty Diagnoses / Procedures [facility] To Contact [facility] Diagnoses SOB (shortness of breath) on exertion Procedures ECG COMPLETE ECG ROUTINE ECG W/LEAST 12 LDS W/I&R Key Portillo APRN.[employer] A[facility] [address] [place] [address] [address] Referral ID Status Reason Start Date Expiration Date V isits Requested Visits Authorized [id number] Closed Auto-Generate d Referral 06/04/2022 06/04/2023 1 1 [facility] for referral (narrative)* Outpatient Procedure (Routine) - Authorized Specialty Diagnoses / Procedures [facility] Diagnoses WELCH (dyspnea on exertion) Procedures SPIROMETRY - BASELINE AND POST DILATOR BRNCDILAT RSPSE SPMTRY PRE&POST-BRNCDILAT ADMMichael Morrison DO [address] [place] [address] [facility] [address] [place] [id number] Referral ID Status Reason Start Date Expiration Date Visits Requested Visits Authorized [id number] Authorized Auto-Generat ed Referral 12/22/2022 01/21/2024 1 1 [facility] for referral (narrative)* Outpatient Procedure (Routine) - Authorized Specialty Diagnoses / Procedures Referred By [facility] Referred To [facility] Diagnoses Epigastric abdominal pain Pulmonary hypertension (HCC) Procedures EGD DIAGNOSTIC ESOPHAGOGASTRODUODENOSCO PY TRANSORAL DIAGNOSTIC Sharon Jarrett APRN.[employer] AIDE [address] [place] [address] [place] [phone] Referral ID Status Reason Start Date Expiration Date Visits Requested Visits Authorized [id number] Authorized Auto-Generat ed Referral 03/13/2025 1 1 [facility] for referral (narrative)* Outpatient Procedure (Routine) - Closed Specialty Diagnoses / Procedures Referred By Colton bond Referred To [facility] Diagnoses Epigastric abdominal pain Pulmonary hypertension (HCC) Procedures EGD DIAGNOSTIC ESOPHAGOGASTRODUODENOSCO PY TRANSORAL DIAGNOSTIC Sharon Jarrett APRN.CNP [address] [place] [address] [place] [phone] Referral ID Status Reason Start Date Expiration Date V isits Requested Visits Authorized [id number] Closed Auto-Generate d Referral 03/13/2024 03/13/2025 1 1 [facility] for referral (narrative)No reason for referral information availableW[facility] Work Phone: Reason for visit Narrative* Outpatient Procedure (Routine) - Closed Specialty Diagnoses / Procedures Referred By Contac t Referred To [facility] Diagnoses Gastroesophageal reflux disease with esophagitis without hemorrhage Procedures EGD DIAGNOSTIC ESOPHAGOGASTRODUODENOSC OPY TRANSORAL DIAGNOSTIC Raymundo De León MD [address] [place] [address] [facility] [address] [place] [address] Referral ID Status Reason Start Date Expiration Date V isits Requested Visits Authorized [id number] Closed Auto-Generate d Referral 12/18/2021 12/18/2022 1 1 [facility] Procedure (Routine) - Closed Specialty Diagnoses / Procedures Referred By Contac t Referred To Contact [facility] Diagnoses Epigastric abdominal pain Pulmonary hypertension (HCC) Procedures EGD DIAGNOSTIC ESOPHAGOGASTRODUODENOSCO PY TRANSORAL DIAGNOSTIC Sharon Jarrett APRN.[employer] [address] [place] [address] [facility] [address] [place] [address] Referral ID Status Reason Start Date Expiration Date V isits Requested Visits Authorized [id number] Closed Auto-Generate d Referral 03/13/2024 03/13/2025 1 1 [facility] Summary Purpose Family History Relationship Condition Age at Onset Recorded Date/T burt grandfather Myocardial infarction Unknown Sudden cardiac Unknown father Myocardial infarction Unknown Coronary artery disease Unknown Congestive heart failure Unknown mother Myocardial infarction Unknown Atrial fibrillation Unknown brother Atrial fibrillation Unknown brother Malignant neoplasm Unknown son Diabetes mellitus Unknown son Hypertension Unknown Advance Directives Documents on File Type Date Recorded 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 [employer] 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 Advance Directive(s) 10/17/2020 9:40 AM Advance Directive(s) 06/29/2017 10:43 AM Advance Directive(s) 06/29/2017 6:40 AM Advance Directive Response Recorded Date/ Time Advance Directives Yes June 09, 2021 11:35am Living Will Yes June 09 11:35am Power of Audio Production Engineer Yes June 09, 2021 11:35am Documents on File Type Date Recorded Patient [employer] 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 Advance Directive(s) 06/29/2017 6:40 AM Documents on File Type Date Recorded Patient [employer] 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 Advance Directive(s) 06/29/2017 6:40 AM Advance Directive Response Recorded Date/ Time Living Will Yes September 28, 2023 1 2:26am Power of Audio Production Engineer Yes September 28, 2023 12:26am Living Will Yes April 30 11:40am Power of Audio Production Engineer Yes April 30, 2024 11:40am Name of Medical Power of Audio Production Engineer Yumiko Elena, daughter April 30, 2024 11:40am Advance Directives Yes June 09, 2021 11:35am Advance Directive Response Recorded Date/ Time Living Will Yes September 28, 2023 1 2:26am Do you have a Healthcare Pow er of Audio Production Engineer? Yes September 28, 2023 12:26am Living Will Yes April 30, 024 11:40am Do you have a Healthcare Pow er of Audio Production Engineer? 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 June 22, 2024 8:30am BRUIT July 03, 2024 12:4 1pm EORDER July 07, 2024 2:49 pm Reason for Visit Admit Date CHF (congestive heart failure) April 30, 2024 9:27am Hypoxia April 30, 2024 9:27am History of permanent cardiac pacemaker p lacement June 01, 2024 12:59pm Paroxysmal atrial fibrillation May 052024 12:59pm Sick sinus syndrome June 01, 2024 1 2:59pm group home current use of amiodarone Dewayne bhagat 2024 [...] (dyspnea on exertion) November 02, 2024 9:16am group home current use of amiodarone November 02, 2024 9:16am Pulmonary hypertension November 02, 2024 9: 16am Right carotid bruit November 02, 2024 9:16a m Essential (primary) hypertension October 9:16am History of permanent cardiac pacemaker p lacement November 02, 2024 9:16am Paroxysmal atrial fibrillation November 02, 2024 9:16am Reason for Visit Admit Date WELCH (dyspnea on exertion) November 02, 2024 9:16am group home current use of amiodarone November 02, 2024 [...] Date Dose Rate Site benzocaine 20% 1 Johnston (TOPEX) 1 Johnston, TOPICAL, DIRECTED, Starting on Kaye 01/08/22 at [...] pain Procedures CONSULT TO GENERAL SURGERY OFFICE/OUTPATIENT [facility] 60 MINUTES Michael Puga, [address] [place] [address] Referral ID Status Reason Start Date Expiration Date Visits Requested Visits Authorized [id number] Authorized PCP Requested Referral 4 03/01/2025 1 [...] section and content) DATE CREATED AUTHOR 12/28/2020 [facility] DATE CREATED AUTHOR AUTHOR'S ORGANIZ ATION 04/06/2024 [facility] DATE CREATED AUTHOR AUTHOR'S ORGANIZ ATION 10/28/2024 [facility] DATE CREATED AUTHOR AUTHOR'S ORGANIZ ATION 11/16/2024 [facility] DATE CREATED AUTHOR AUTHOR'S ORGANIZ ATION 11/26/2024 [facility] Source Comments (unrecognize d section and content) In the event this informatio n is protected by the Federal Confidentiality of Alcohol and Drug Abuse Patient Records regulations: The Federal rules restrict any use of the information to criminally investigate or prosecute any alcohol or drug abuse patient.[facility] the event this information is protected by the Federal Confidentiality of Alcohol and Drug Abuse Patient Records regulations: The Federal rules restrict any use of the information to criminally investigate or prosecute any alcohol or drug abuse patient.[facility] CenterIn the event this information is protected by the Federal Confidentiality of Alcohol and Drug Abuse Patient Records regulations: The Federal rules restrict any use of the information to criminally investigate or prosecute any alcohol or drug abuse patient.[facility] CenterIn the event this information is protected by the Federal Confidentiality of Alcohol and Drug Abuse Patient Records regulations: The Federal rules restrict any use of the information to criminally investigate or prosecute any alcohol or drug abuse patient.[facility] CenterIn the event this information is protected by the Federal Confidentiality of Alcohol and Drug Abuse Patient Records regulations: The Federal rules restrict any use of the information to criminally investigate or prosecute any alcohol or drug abuse patient.[facility] CenterIn the event this information is protected by the Federal Confidentiality of Alcohol and Drug Abuse Patient Records regulations: The Federal rules restrict any use of the information to criminally investigate or prosecute any alcohol or drug abuse patient.[facility] CenterIn the event this information is protected by the Federal Confidentiality of Alcohol and Drug Abuse Patient Records regulations: The Federal rules restrict any use of the information to criminally investigate or prosecute any alcohol or drug abuse patient.[facility] CenterIn the event this information is protected by the Federal Confidentiality of Alcohol and Drug Abuse Patient Records regulations: The Federal rules restrict any use of the information to criminally investigate or prosecute any alcohol or drug abuse patient.[facility] CenterIn the event this information is protected by the Federal Confidentiality of Alcohol and Drug Abuse Patient Records regulations: The Federal rules restrict any use of the information to criminally investigate or prosecute any alcohol or drug abuse patient.[facility] CenterIn the event this information is protected by the Federal Confidentiality of Alcohol and Drug Abuse Patient Records regulations: The Federal rules restrict any use of the information to criminally investigate or prosecute any alcohol or drug abuse patient.[facility] CenterIn the event this information is protected by the Federal Confidentiality of Alcohol and Drug Abuse Patient Records regulations: The Federal rules restrict any use of the information to criminally investigate or prosecute any alcohol or drug abuse patient.[facility] CenterIn the event this information is protected by the Federal Confidentiality of Alcohol and Drug Abuse Patient Records regulations: The Federal rules restrict any use of the information to criminally investigate or prosecute any alcohol or drug abuse patient.[facility] CenterIn the event this information is protected by the Federal Confidentiality of Alcohol and Drug Abuse Patient Records regulations: The Federal rules restrict any use of the information to criminally investigate or prosecute any alcohol or drug abuse patient.[facility] CenterIn the event this information is protected by the Federal Confidentiality of Alcohol and Drug Abuse Patient Records regulations: The Federal rules restrict any use of the information to criminally investigate or prosecute any alcohol or drug abuse patient.[facility] CenterIn the event this information is protected by the Federal Confidentiality of Alcohol and Drug Abuse Patient Records regulations: The Federal rules restrict any use of the information to criminally investigate or prosecute any alcohol or drug abuse patient.[facility] CenterIn the event this information is protected by the Federal Confidentiality of Alcohol and Drug Abuse Patient Records regulations: The Federal rules restrict any use of the information to criminally investigate or prosecute any alcohol or drug abuse patient.[facility] CenterIn the event this information is protected by the Federal Confidentiality of Alcohol and Drug Abuse Patient Records regulations: The Federal rules restrict any use of the information to criminally investigate or prosecute any alcohol or drug abuse patient.[facility] CenterIn the event this information is protected by the Federal Confidentiality of Alcohol and Drug Abuse Patient Records regulations: The Federal rules restrict any use of the information to criminally investigate or prosecute any alcohol or drug abuse patient.[facility] CenterIn the event this information is protected by the Federal Confidentiality of Alcohol and Drug Abuse Patient Records regulations: The Federal rules restrict any use of the information to criminally investigate or prosecute any alcohol or drug abuse patient.[facility] CenterIn the event this information is protected by the Federal Confidentiality of Alcohol and Drug Abuse Patient Records regulations: The Federal rules restrict any use of the information to criminally investigate or prosecute any alcohol or drug abuse patient.[facility] CenterIn the event this information is protected by the Federal Confidentiality of Alcohol and Drug Abuse Patient Records regulations: The Federal rules restrict any use of the information to criminally investigate or prosecute any alcohol or drug abuse patient.[facility] CenterIn the event this information is protected by the Federal Confidentiality of Alcohol and Drug Abuse Patient Records regulations: The Federal rules restrict any use of the information to criminally investigate or prosecute any alcohol or drug abuse patient.[facility] CenterIn the event this information is protected by [...] or prosecute any alcohol or drug abuse patient.[facility] CenterIn the event this information is protected by the Federal Confidentiality of Alcohol and Drug Abuse Patient Records regulations: The Federal rules restrict any use of the information to criminally investigate or prosecute any alcohol or drug abuse patient.[facility] CenterIn the event this information is protected by the Federal Confidentiality of Alcohol and Drug Abuse Patient Records regulations: The Federal rules restrict any use of the information to criminally investigate or prosecute any alcohol or drug abuse patient.[facility] CenterIn the event this information is protected by the Federal Confidentiality of Alcohol and Drug Abuse Patient Records regulations: The Federal rules restrict any use of the information to criminally investigate or prosecute any alcohol or drug abuse patient.[facility] CenterIn the event this information is protected by the Federal Confidentiality of Alcohol and Drug Abuse Patient Records regulations: The Federal rules restrict any use of the information to criminally investigate or prosecute any alcohol or drug abuse patient.[facility] CenterIn the event this information is protected by the Federal Confidentiality of Alcohol and Drug Abuse Patient Records regulations: The Federal rules restrict any use of the information to criminally investigate or prosecute any alcohol or drug abuse patient.[facility] CenterIn the event this information is protected by the Federal Confidentiality of Alcohol and Drug Abuse Patient Records regulations: The Federal rules restrict any use of the information to criminally investigate or prosecute any alcohol or drug abuse patient.[facility] CenterIn the event this information is protected by the Federal Confidentiality of Alcohol and Drug Abuse Patient Records regulations: The Federal rules restrict any use of the information to criminally investigate or prosecute any alcohol or drug abuse patient.[facility] CenterIn the event this information is protected by the Federal Confidentiality of Alcohol and Drug Abuse Patient Records regulations: The Federal rules restrict any use of the information to criminally investigate or prosecute any alcohol or drug abuse patient.[facility] CenterIn the event this information is protected by the Federal Confidentiality of Alcohol and Drug Abuse Patient Records regulations: The Federal rules restrict any use of the information to criminally investigate or prosecute any alcohol or drug abuse patient.[facility] CenterIn the event this information is protected by the Federal Confidentiality of Alcohol and Drug Abuse Patient Records regulations: The Federal rules restrict any use of the information to criminally investigate or prosecute any alcohol or drug abuse patient.[facility] CenterIn the event this information is protected by the Federal Confidentiality of Alcohol and Drug Abuse Patient Records regulations: The Federal rules restrict any use of the information to criminally investigate or prosecute any alcohol or drug abuse patient.[facility] CenterIn the event this information is protected by the Federal Confidentiality of Alcohol and Drug Abuse Patient Records regulations: The Federal rules restrict any use of the information to criminally investigate or prosecute any alcohol or drug abuse patient.[facility] CenterIn the event this information is protected by the Federal Confidentiality of Alcohol and Drug Abuse Patient Records regulations: The Federal rules restrict any use of the information to criminally investigate or prosecute any alcohol or drug abuse patient.[facility] CenterIn the event this information is protected by the Federal Confidentiality of Alcohol and Drug Abuse Patient Records regulations: The Federal rules restrict any use of the information to criminally investigate or prosecute any alcohol or drug abuse patient.[facility] CenterIn the event this information is protected by the Federal Confidentiality of Alcohol and Drug Abuse Patient Records regulations: The Federal rules restrict any use of the information to criminally investigate or prosecute any alcohol or drug abuse patient.[facility] CenterIn the event this information is protected by the Federal Confidentiality of Alcohol and Drug Abuse Patient Records regulations: The Federal rules restrict any use of the information to criminally investigate or prosecute any alcohol or drug abuse patient.[facility] CenterIn the event this information is protected by the Federal Confidentiality of Alcohol and Drug Abuse Patient Records regulations: The Federal rules restrict any use of the information to criminally investigate or prosecute any alcohol or drug abuse patient.[facility] CenterIn the event this information is protected by the Federal Confidentiality of Alcohol and Drug Abuse Patient Records regulations: The Federal rules restrict any use of the information to criminally investigate or prosecute any alcohol or drug abuse patient.[facility] CenterIn the event this information is protected by the Federal Confidentiality of Alcohol and Drug Abuse Patient Records regulations: The Federal rules restrict any use of the information to criminally investigate or prosecute any alcohol or drug abuse patient.[facility] CenterIn the event this information is protected by the Federal Confidentiality of Alcohol and Drug Abuse Patient Records regulations: The Federal rules restrict any use of the information to criminally investigate or prosecute any alcohol or drug abuse patient.[facility] CenterIn the event this information is protected by the Federal Confidentiality of Alcohol and Drug Abuse Patient Records regulations: The Federal rules restrict any use of the information to criminally investigate or prosecute any alcohol or drug abuse patient.[facility] CenterIn the event this information is protected by the Federal Confidentiality of Alcohol and Drug Abuse Patient Records regulations: The Federal rules restrict any use of the information to criminally investigate or prosecute any alcohol or drug abuse patient.[facility] CenterIn the event this information is protected by the Federal Confidentiality of Alcohol and Drug Abuse Patient Records regulations: The Federal rules restrict any use of the information to criminally investigate or prosecute any alcohol or drug abuse patient.[facility] CenterIn the event this information is protected by the Federal Confidentiality of Alcohol and Drug Abuse Patient Records regulations: The Federal rules restrict any use of the information to criminally investigate or prosecute any alcohol or drug abuse patient.[facility] CenterIn the event this information is protected by the Federal Confidentiality of Alcohol and Drug Abuse Patient Records regulations: The Federal rules restrict any use of the information to criminally investigate or prosecute any alcohol or drug abuse patient.[facility] CenterIn the event this information is protected by the Federal Confidentiality of Alcohol and Drug Abuse Patient Records regulations: The Federal rules restrict any use of the information to criminally investigate or prosecute any alcohol or drug abuse patient.[facility] CenterIn the event this information is protected by the Federal Confidentiality of Alcohol and Drug Abuse Patient Records regulations: The Federal rules restrict any use of the information to criminally investigate or prosecute any alcohol or drug abuse patient.[facility] CenterIn the event this information is protected by the Federal Confidentiality of Alcohol and Drug Abuse Patient Records regulations: The Federal rules restrict any use of the information to criminally investigate or prosecute any alcohol or drug abuse patient.[facility] CenterIn the event this information is protected by the Federal Confidentiality of Alcohol and Drug Abuse Patient Records regulations: The Federal rules restrict any use of the information to criminally investigate or prosecute any alcohol or drug abuse patient.[facility] CenterIn the event this information is protected by the Federal Confidentiality of Alcohol and Drug Abuse Patient Records regulations: The Federal rules restrict any use of the information to criminally investigate or prosecute any alcohol or drug abuse patient.[facility] CenterIn the event this information is protected by the Federal Confidentiality of Alcohol and Drug Abuse Patient Records regulations: The Federal rules restrict any use of the information to criminally investigate or prosecute any alcohol or drug abuse patient.[facility] CenterIn the event this information is protected by the Federal Confidentiality of Alcohol and Drug Abuse Patient Records regulations: The Federal rules restrict any use of the information to criminally investigate or prosecute any alcohol or drug abuse patient.[facility] CenterIn the event this information is protected by the Federal Confidentiality of Alcohol and Drug Abuse Patient Records regulations: The Federal rules restrict any use of the information to criminally investigate or prosecute any alcohol or drug abuse patient.[facility] CenterIn the event this information is protected by the Federal Confidentiality of Alcohol and Drug Abuse Patient Records regulations: The Federal rules restrict any use of the information to criminally investigate or prosecute any alcohol or drug abuse patient.[facility] CenterIn the event this information is protected by the Federal Confidentiality of Alcohol and Drug Abuse Patient Records regulations: The Federal rules restrict any use of the information to criminally investigate or prosecute any alcohol or drug abuse patient.[facility] CenterIn the event this information is protected by the Federal Confidentiality of Alcohol and Drug Abuse Patient Records regulations: The Federal rules restrict any use of the information to criminally investigate or prosecute any alcohol or drug abuse patient.[facility] CenterIn the event this information is protected by the Federal Confidentiality of Alcohol and Drug Abuse Patient Records regulations: The Federal rules restrict any use of the information to criminally investigate or prosecute any alcohol or drug abuse patient.[facility] CenterIn the event this information is protected by the Federal Confidentiality of Alcohol and Drug Abuse Patient Records regulations: The Federal rules restrict any use of the information to criminally investigate or prosecute any alcohol or drug abuse patient.[facility] CenterIn the event this information is protected by the Federal Confidentiality of Alcohol and Drug Abuse Patient Records regulations: The Federal rules restrict any use of the information to criminally investigate or prosecute any alcohol or drug abuse patient.[facility] CenterIn the event this information is protected by the Federal Confidentiality of Alcohol and Drug Abuse Patient Records regulations: The Federal rules restrict any use of the information to criminally investigate or prosecute any alcohol or drug abuse patient.[facility] CenterIn the event this information is protected by the Federal Confidentiality of Alcohol and Drug Abuse Patient Records regulations: The Federal rules restrict any use of the information to criminally investigate or prosecute any alcohol or drug abuse patient.[facility] CenterIn the event this information is protected by the Federal Confidentiality of Alcohol and Drug Abuse Patient Records regulations: The Federal rules restrict any use of the information to criminally investigate or prosecute any alcohol or drug abuse patient.[facility] CenterIn the event this information is protected by the Federal Confidentiality of Alcohol and Drug Abuse Patient Records regulations: The Federal rules restrict any use of the information to criminally investigate or prosecute any alcohol or drug abuse patient.[facility] CenterIn the event this information is protected by the Federal Confidentiality of Alcohol and Drug Abuse Patient Records regulations: The Federal rules restrict any use of the information to criminally investigate or prosecute any alcohol or drug abuse patient.[facility] CenterIn the event this information is protected by the Federal Confidentiality of Alcohol and Drug Abuse Patient Records regulations: The Federal rules restrict any use of the information to criminally investigate or prosecute any alcohol or drug abuse patient.[facility] CenterIn the event this information is protected by the Federal Confidentiality of Alcohol and Drug Abuse Patient Records regulations: The Federal rules restrict any use of the information to criminally investigate or prosecute any alcohol or drug abuse patient.[facility] CenterIn the event this information is protected by the Federal Confidentiality of Alcohol and Drug Abuse Patient Records regulations: The Federal rules restrict any use of the information to criminally investigate or prosecute any alcohol or drug abuse patient.[facility] CenterIn the event this information is protected by the Federal Confidentiality of Alcohol and Drug Abuse Patient Records regulations: The Federal rules restrict any use of the information to criminally investigate or prosecute any alcohol or drug abuse patient.[facility] CenterIn the event this information is protected by [...] or prosecute any alcohol or drug abuse patient.[facility] CenterIn the event this information is protected by the Federal Confidentiality of Alcohol and Drug Abuse Patient Records regulations: The Federal rules restrict any use of the information to criminally investigate or prosecute any alcohol or drug abuse patient.[facility] CenterIn the event this information is protected by the Federal Confidentiality of Alcohol and Drug Abuse Patient Records regulations: The Federal rules restrict any use of the information to criminally investigate or prosecute any alcohol or drug abuse patient.[facility] CenterIn the event this information is protected by the Federal Confidentiality of Alcohol and Drug Abuse Patient Records regulations: The Federal rules restrict any use of the information to criminally investigate or prosecute any alcohol or drug abuse patient.[facility] CenterIn the event this information is protected by the Federal Confidentiality of Alcohol and Drug Abuse Patient Records regulations: The Federal rules restrict any use of the information to criminally investigate or prosecute any alcohol or drug abuse patient.[facility] CenterIn the event this information is protected by the Federal Confidentiality of Alcohol and Drug Abuse Patient Records regulations: The Federal rules restrict any use of the information to criminally investigate or prosecute any alcohol or drug abuse patient.[facility] CenterIn the event this information is protected by the Federal Confidentiality of Alcohol and Drug Abuse Patient Records regulations: The Federal rules restrict any use of the information to criminally investigate or prosecute any alcohol or drug abuse patient.[facility] CenterIn the event this information is protected by the Federal Confidentiality of Alcohol and Drug Abuse Patient Records regulations: The Federal rules restrict any use of the information to criminally investigate or prosecute any alcohol or drug abuse patient.[facility] CenterIn the event this information is protected by the Federal Confidentiality of Alcohol and Drug Abuse Patient Records regulations: The Federal rules restrict any use of the information to criminally investigate or prosecute any alcohol or drug abuse patient.[facility] CenterIn the event this information is protected by the Federal Confidentiality of Alcohol and Drug Abuse Patient Records regulations: The Federal rules restrict any use of the information to criminally investigate or prosecute any alcohol or drug abuse patient.[facility] CenterIn the event this information is protected by the Federal Confidentiality of Alcohol and Drug Abuse Patient Records regulations: The Federal rules restrict any use of the information to criminally investigate or prosecute any alcohol or drug abuse patient.[facility] CenterIn the event this information is protected by the Federal Confidentiality of Alcohol and Drug Abuse Patient Records regulations: The Federal rules restrict any use of the information to criminally investigate or prosecute any alcohol or drug abuse patient.[facility] CenterIn the event this information is protected by the Federal Confidentiality of Alcohol and Drug Abuse Patient Records regulations: The Federal rules restrict any use of the information to criminally investigate or prosecute any alcohol or drug abuse patient.[facility] CenterIn the event this information is protected by the Federal Confidentiality of Alcohol and Drug Abuse Patient Records regulations: The Federal rules restrict any use of the information to criminally investigate or prosecute any alcohol or drug abuse patient.[facility] CenterIn the event this information is protected by the Federal Confidentiality of Alcohol and Drug Abuse Patient Records regulations: The Federal rules restrict any use of the information to criminally investigate or prosecute any alcohol or drug abuse patient.[facility] CenterIn the event this information is protected by the Federal Confidentiality of Alcohol and Drug Abuse Patient Records regulations: The Federal rules restrict any use of the information to criminally investigate or prosecute any alcohol or drug abuse patient.[facility] CenterIn the event this information is protected by the Federal Confidentiality of Alcohol and Drug Abuse Patient Records regulations: The Federal rules restrict any use of the information to criminally investigate or prosecute any alcohol or drug abuse patient.[facility] CenterIn the event this information is protected by the Federal Confidentiality of Alcohol and Drug Abuse Patient Records regulations: The Federal rules restrict any use of the information to criminally investigate or prosecute any alcohol or drug abuse patient.[facility] CenterIn the event this information is protected by the Federal Confidentiality of Alcohol and Drug Abuse Patient Records regulations: The Federal rules restrict any use of the information to criminally investigate or prosecute any alcohol or drug abuse patient.[facility] CenterIn the event this information is protected by the Federal Confidentiality of Alcohol and Drug Abuse Patient Records regulations: The Federal rules restrict any use of the information to criminally investigate or prosecute any alcohol or drug abuse patient.[facility] CenterIn the event this information is protected by the Federal Confidentiality of Alcohol and Drug Abuse Patient Records regulations: The Federal rules restrict any use of the information to criminally investigate or prosecute any alcohol or drug abuse patient.[facility] CenterIn the event this information is protected by the Federal Confidentiality of Alcohol and Drug Abuse Patient Records regulations: The Federal rules restrict any use of the information to criminally investigate or prosecute any alcohol or drug abuse patient.[facility] CenterIn the event this information is protected by the Federal Confidentiality of Alcohol and Drug Abuse Patient Records regulations: The Federal rules restrict any use of the information to criminally investigate or prosecute any alcohol or drug abuse patient.[facility] CenterIn the event this information is protected by the Federal Confidentiality of Alcohol and Drug Abuse Patient Records regulations: The Federal rules restrict any use of the information to criminally investigate or prosecute any alcohol or drug abuse patient.[facility] CenterIn the event this information is protected by the Federal Confidentiality of Alcohol and Drug Abuse Patient Records regulations: The Federal rules restrict any use of the information to criminally investigate or prosecute any alcohol or drug abuse patient.[facility] Reason for Visit (unrecogniz ed section and content) Reason Comments PT Eval Specialty Diagnoses / Procedures Referred By Contac t Referred To Contact Physical Therapy / PHYSICAL THERAPY Diagnoses CONSULT/WEAKNESS Procedures NEW RS PT ORTH Arlene Bruce MD [email or web address] [facility] [address] [place] [address] Phone: tel: fax: Sarah Merchant, PT [address] [place] [address] Phone: tel: Referral ID Status Reason Start Date Expiration Date V isits Requested Visits Authorized [id number] Authorized 09/07/2024 05/02/2025 99 99 Reason Comments Physical Therapy Specialty Diagnoses / Procedures Referred By Contac t Referred To Contact Physical Therapy / PHYSICAL THERAPY Diagnoses Right knee Procedures NEW RS PT ORTH Geeta Stanton PA-C [email or web address] [place] [address] Sarah Merchant, PT [address] [place] [address] Referral ID Status Reason Start Date Expiration Date V isits Requested Visits Authorized [id number] Authorized 11/15/2023 05/02/2024 99 99 Reason Comments [...] Navigation Outreach 06/02/2022 Healthy at Home - [facility] Reason Comments Extreme fatigue Reason [...] PRE&POST-BRNCDILAT ADMN Michael Puga L, DO [address] [place] [address] [facility] [place] [address] [place] [address] Referral ID Status Reason Start Date Expiration Date V isits Requested Visits Authorized [id number] Closed Auto-Generate d Referral 12/22/2022 01/21/2024 1 [...] MDM 60 MINUTES Michael Puga, DO [address] [place] [address] Referral ID Status Reason Start Date Expiration Date V isits Requested Visits Authorized [id number] Closed PCP Requested Referral 03/01/2024 03/01/2025 1 [...] Care Teams (unrecognized sec tion and content) Network/Telecom Engineer Relationship Specialty Start Date End Date Michael Puga DO [address] [place] [address] PCP - General Family Practice 05/06/16 Network/Telecom Engineer Relationship Specialty Start Date End Date Michael Puga DO [address] [place] [address] PCP - General Family Practice 05/06/16 Network/Telecom Engineer Relationship Specialty Start Date End Date Michael Puga DO [address] [place] [address] PCP - General Family Practice 05/06/16 Network/Telecom Engineer Relationship Specialty Start Date End Date Michael Puga DO [address] [place] [place], [place] [id number] PCP - General Family Practice 05/06/16 Network/Telecom Engineer Relationship Specialty Start Date End Date Michael Puga, DO [address] [place] [address] PCP - General Family Practice 05/06/16 Network/Telecom Engineer Relationship Specialty Start Date End Date Michael Puga, DO [address] [place] [address] PCP - General Family Practice 05/06/16 Network/Telecom Engineer Relationship Specialty Start Date End Date Michael Puga, DO [address] [place] [address] PCP - General Family Practice 05/06/16 Network/Telecom Engineer Relationship Specialty Start Date End Date Michael Puga, DO [address] [place] [address] PCP - General Family Medicine 05/06/16 Network/Telecom Engineer Relationship Specialty Start Date End Date Michael Puga, DO [address] [place] [address] PCP - General Family Medicine 05/06/16 Network/Telecom Engineer Relationship Specialty Start Date End Date Michael Puga, DO [address] [place] [address] PCP - General Family Medicine 05/06/16 Network/Telecom Engineer Relationship Specialty Start Date End Date Michael Puga, DO [address] [place] [address] PCP - General Family Medicine 05/06/16 Network/Telecom Engineer Relationship Specialty Start Date End Date Michael Puga, DO [address] [place] [address] PCP - General Family Medicine 05/06/16 Network/Telecom Engineer Relationship Specialty Start Date End Date Michael Puga, DO [address] [place] [address] PCP - General Family Medicine 05/06/16 Network/Telecom Engineer Relationship Specialty Start Date End Date Michael Puga DO [address] [place] [address] PCP - General Family Medicine 05/06/16 Network/Telecom Engineer Relationship Specialty Start Date End Date Michael Puga DO [address] [place] [address] PCP - General Family Medicine 05/06/16 Network/Telecom Engineer Relationship Specialty Start Date End Date Michael Puga DO [address] [place] [address] PCP - General Family Medicine 05/06/16 Network/Telecom Engineer Relationship Specialty Start Date End Date Michael Puga DO [address] [place] [address] PCP - General Family Medicine 05/06/16 Network/Telecom Engineer Relationship Specialty Start Date End Date Michael Puga DO [address] [place] [address] PCP - General Family Medicine 05/06/16 Network/Telecom Engineer Relationship Specialty Start Date End Date Michael Puga DO [address] [place] [address] PCP - General Family Medicine 05/06/16 Network/Telecom Engineer Relationship Specialty Start Date End Date Michael Puga DO [address] [place] [address] PCP - General Family Medicine 05/06/16 Network/Telecom Engineer Relationship Specialty Start Date End Date Michael Puga DO [address] [place] [address] PCP - General Family Medicine 05/06/16 Network/Telecom Engineer Relationship Specialty Start Date End Date Michael Puga DO [address] [place] [address] PCP - General Family Medicine 05/06/16 Network/Telecom Engineer Relationship Specialty Start Date End Date Michael Puga DO [address] [place] [address] PCP - General Family Medicine 05/06/16 Isabella Michel, GLYNN [address] [place] [address] Primary Care Anesthesiology Technologist 10/04/23 Network/Telecom Engineer Relationship Specialty Start Date End Date Michael Puga DO [address] [place] [address] PCP - General Family Medicine 05/06/16 Isabella Michel, GLYNN [address] [place] [address] Primary Care Anesthesiology Technologist 10/04/23 Network/Telecom Engineer Relationship Specialty Start Date End Date Michael Puga DO [address] [place] [address] PCP - General Family Medicine 05/06/16 Isabella Michel, GLYNN [address] [place] [address] Primary Care Anesthesiology Technologist 10/04/23 Network/Telecom Engineer Relationship Specialty Start Date End Date Michael Puga DO [address] [place] [address] PCP - General Family Medicine 05/06/16 Isabella Michel, GLYNN [address] [place] [address] Primary Care Anesthesiology Technologist 10/04/23 Network/Telecom Engineer Relationship Specialty Start Date End Date Michael Puga DO [address] [place] [address] PCP - General Family Medicine 05/06/16 Isabella Michel, GLYNN [address] [place] [address] Primary Care Anesthesiology Technologist 10/04/23 Network/Telecom Engineer Relationship Specialty Start Date End Date Michael Puga DO [address] [place] [address] PCP - General Family Medicine 05/06/16 Isabella Michel, GLYNN [address] [place] [address] Primary Care Anesthesiology Technologist 10/04/23 Network/Telecom Engineer Relationship Specialty Start Date End Date Michael Puga DO [address] [place] [address] PCP - General Family Medicine 05/06/16 Network/Telecom Engineer Relationship Specialty Start Date End Date Michael Puga DO [address] [place] [address] PCP - General Family Medicine 05/06/16 Network/Telecom Engineer Relationship Specialty Start Date End Date Michael Puga DO [address] [place] [address] PCP - General Family Medicine 05/06/16 Network/Telecom Engineer Relationship Specialty Start Date End Date Michael Puga DO [address] [place] [address] PCP - General Family Medicine 05/06/16 Network/Telecom Engineer Relationship Specialty Start Date End Date Michael Puga DO [address] [place] [address] PCP - General Family Medicine 05/06/16 Network/Telecom Engineer Relationship Specialty Start Date End Date Michael Puga DO [address] [place] [address] PCP - General Family Medicine 05/06/16 Network/Telecom Engineer Relationship Specialty Start Date End Date Michael Puga DO [address] [place] [address] PCP - General Family Medicine 05/06/16 Network/Telecom Engineer Relationship Specialty Start Date End Date Michael Puga DO [address] [place] [address] PCP - General Family Medicine 05/06/16 Network/Telecom Engineer Relationship Specialty Start Date End Date Michael Puga DO [address] [place] [address] PCP - General Family Medicine 05/06/16 Network/Telecom Engineer Relationship Specialty Start Date End Date Michael Puga DO [address] [place] [address] PCP - General Family Medicine 05/06/16 Network/Telecom Engineer Relationship Specialty Start Date End Date Michael Puga DO [address] [place] [address] PCP - General Family Medicine 05/06/16 Network/Telecom Engineer Relationship Specialty Start Date End Date Michael Puga DO [address] [place] [address] PCP - General Family Medicine 05/06/16 Network/Telecom Engineer Relationship Specialty Start Date End Date Michael Puga DO [address] [place] [address] PCP - General Family Medicine 05/06/16 Network/Telecom Engineer Relationship Specialty Start Date End Date Michael Puga DO [address] [place] [address] PCP - General Family Medicine 05/06/16 Network/Telecom Engineer Relationship Specialty Start Date End Date Michael Puga DO [address] [place] [address] PCP - General Family Medicine 05/06/16 Network/Telecom Engineer Relationship Specialty Start Date End Date Michael Puga DO [address] [place] [address] PCP - General Family Medicine 05/06/16 Network/Telecom Engineer Relationship Specialty Start Date End Date Michael Puga DO [address] [place] [address] PCP - General Family Medicine 05/06/16 Network/Telecom Engineer Relationship Specialty Start Date End Date Michael Puga DO [address] [place] [address] PCP - General Family Medicine 05/06/16 Network/Telecom Engineer Relationship Specialty Start Date End Date Michael Puga DO [address] [place] [address] PCP - General Family Medicine 05/06/16 Key Portillo APRN.GERICARE AIDE [address] [facility] [place] [address] Fundraising Coordinator Family Medicine 04/09/24 Asia Rosales APRN.[facility]ICARE AIDE [address] [place] [address] Fundraising Coordinator Family [facility] 04/09/24 Network/Telecom Engineer Relationship Specialty Start Date End Date Michael Puga DO [address] [place] [address] PCP - General Family Medicine 05/06/16 Key Portillo, METAL BONDING WORKER.GERICARE AIDE [address] [place] [address] Fundraising Coordinator Family Medicine 04/09/24 Asia Rosales, METAL BONDING WORKER.GERICARE AIDE [address] [place] [address] [facility] 04/09/24 Network/Telecom Engineer Relationship Specialty Start Date End Date Michael Puga DO [address] [place] [address] PCP - General Family Medicine 05/06/16 Key Portillo, METAL BONDING WORKER.GERICARE AIDE [address] [place] [address] Fundraising Coordinator Family [facility] 04/09/24 Asia Rosales, METAL BONDING WORKER.GERICARE AIDE [address] [place] [address] [facility] 04/09/24 Network/Telecom Engineer Relationship Specialty Start Date End Date Michael Puga DO [address] [facility] [place] [address] PCP - General Family Medicine 05/06/16 Key Portillo, METAL BONDING WORKER.GERICARE AIDE [address] [place] [address] Fundraising Coordinator Family [facility] 04/09/24 Asia Rosales, METAL BONDING WORKER.GERICARE AIDE [address] [place] [address] [facility] Medicine 04/09/24 Network/Telecom Engineer Relationship Specialty Start Date End Date Michael Puga DO [address] [place] [address] PCP - General Family Medicine 05/06/16 Key Portillo, METAL BONDING WORKER.GERICARE AIDE [address] [place] [address] [facility] 04/09/24 Asia Rosales, METAL BONDING WORKER.GERICARE AIDE [address] [place] [address] [facility] 04/09/24 Network/Telecom Engineer Relationship Specialty Start Date End Date Michael Puga DO [address] [place] [address] PCP - General Family Medicine 05/06/16 Key Portillo, METAL BONDING WORKER.GERICARE AIDE [address] [place] [address] [facility] Family Medicine 04/09/24 Asia Rosales, METAL BONDING WORKER.GERICARE AIDE [address] [place] [address] [facility] Medicine 04/09/24 Network/Telecom Engineer Relationship Specialty Start Date End Date Michael Puga DO [address] [place] [address] PCP - General Family Medicine 05/06/16 Key Portillo, METAL BONDING WORKER.GERICARE AIDE [address] [place] [address] [facility] 04/09/24 Asia Rosales, METAL BONDING WORKER.GERICARE AIDE [address] [place] [address] [facility] 04/09/24 Network/Telecom Engineer Relationship Specialty Start Date End Date Michael Puga DO [address] [facility] [place] [address] PCP - General Family Medicine 05/06/16 Key Portillo, METAL BONDING WORKER.GERICARE AIDE [address] [place] [address] [facility] 04/09/24 ConnieAsia, METAL BONDING WORKER.GERICARE AIDE [address] [facility] [place] [address] [facility] 04/09/24 Network/Telecom Engineer Relationship Specialty Start Date End Date Michael Puga DO [address] [place] [address] PCP - General Family Medicine 05/06/16 Key Portillo, METAL BONDING WORKER.GERICARE AIDE [address] [place] [address] [facility] 04/09/24 Asia Rosales, METAL BONDING WORKER.GERICARE AIDE [address] [facility] [place] [address] [facility] 04/09/24 Network/Telecom Engineer Relationship Specialty Start Date End Date Michael Puga DO [address] [place] [address] PCP - General Family Medicine 05/06/16 Key Portillo, METAL BONDING WORKER.GERICARE AIDE [address] [place] [address] Fundraising Coordinator Family Medicine 04/09/24 ConnieAsia, METAL BONDING WORKER.GERICARE AIDE [address] [place] [address] Fundraising Coordinator Family [facility] 04/09/24 Network/Telecom Engineer Relationship Specialty Start Date End Date Michael Puga DO [address] [place] [address] PCP - General Family Medicine 05/06/16 Key Portillo, METAL BONDING WORKER.GERICARE AIDE [address] [place] [address] Fundraising Coordinator Family [facility] 04/09/24 Asia Rosales, METAL BONDING WORKER.GERICARE AIDE [address] [place] [address] Fundraising Coordinator Family [facility] 04/09/24 Network/Telecom Engineer Relationship Specialty Start Date End Date Michael Puga DO [address] [place] [address] PCP - General Family Medicine 05/06/16 Key Portillo, METAL BONDING WORKER.GERICARE AIDE [address] [place] [address] Fundraising Coordinator Family Medicine 04/09/24 Asia Rosales, METAL BONDING WORKER.GERICARE AIDE [address] [place], [place] [address] Fundraising Coordinator Family Medicine 04/09/24 Team Status: Active Member [...] July 07, 2024 End: July 07, 2024 Network/Telecom Engineer Relationship Specialty Start Date End Date Michael Puga DO [address] [place] [address] PCP - General Family Medicine 05/06/16 [facility] METAL BONDING WORKER.GERICARE AIDE [address] [place] [address] Fundraising Coordinator Family [facility] 04/09/24 Network/Telecom Engineer Relationship Specialty Start Date End Date Michael Puga DO [address] [place] [address] PCP - General Family Medicine 05/06/16 [facility], METAL BONDING WORKER.GERICARE AIDE [address] [place] [address] Fundraising Coordinator Family [facility] 04/09/24 Network/Telecom Engineer Relationship Specialty Start Date End Date Michael Puga DO [address] [place] [address] PCP - General Family Medicine 05/06/16 [facility], METAL BONDING WORKER.GERICARE AIDE [address] [place] [address] [facility] Network/Telecom Engineer Relationship Specialty Start Date End Date Michael Puga DO [address] [place] [address] PCP - General Family Medicine 05/06/16 ConnieAsia, METAL BONDING WORKER.GERICARE AIDE [address] [place] [address] Fundraising Coordinator Family [facility] 04/09/24 Network/Telecom Engineer Relationship Specialty Start Date End Date Michael Puga DO [address] [place] [address] PCP - General Family Medicine 05/06/16 ConnieAsia, METAL BONDING WORKER.GERICARE AIDE [address] [place] [address] Fundraising Coordinator Family [facility] 04/09/24 Network/Telecom Engineer Relationship Specialty Start Date End Date Michael Puga DO [address] [place] [address] PCP - General Family Medicine 05/06/16 ConnieAsia, METAL BONDING WORKER.GERICARE AIDE [address] [place] [address] Fundraising Coordinator [facility] 04/09/24 Network/Telecom Engineer Relationship Specialty Start Date End Date Michael Puga DO [address] [place] [address] PCP - General Family Medicine 05/06/16 ConnieAsia, METAL BONDING WORKER.GERICARE AIDE [address] [place] [address] [facility] 04/09/24 Network/Telecom Engineer Relationship Specialty Start Date End Date Michael Puga DO [address] [place] [address] PCP - General Family Medicine 05/06/16 ConnieAsia, METAL BONDING WORKER.GERICARE AIDE [address] [place] [address] [facility] 04/09/24 Network/Telecom Engineer Relationship Specialty Start Date End Date Michael Puga DO [address] [place] [address] PCP - General Family Medicine 05/06/16 ConnieAsia, METAL BONDING WORKER.GERICARE AIDE [address] [place] [address] [facility] 04/09/24 Isela Barton, METAL BONDING WORKER.GERICARE AIDE [address] [place] [address] [facility] 10/16/24 Network/Telecom Engineer Relationship Specialty Start Date End Date Michael Puga DO [address] [place] [address] PCP - General Family Medicine 05/06/16 ConnieAsia, METAL BONDING WORKER.GERICARE AIDE [address] [place] [address] [facility] 04/09/24 Isela Barton, METAL BONDING WORKER.GERICARE AIDE [address] [place] [address] [facility] 10/16/24 Team Status: Active Member Role/Relationship Status [...] October 23, 2024 End: October 23, 2024 Network/Telecom Engineer Relationship Specialty Start Date End Date Michael Puga DO [address] [facility], [place] [id number] PCP - General Family Medicine 05/06/16 Asia Rosales, METAL BONDING WORKER.GERICARE AIDE [address] [place] [address] Fundraising Coordinator Family Medicine 04/09/24 Isela Barton, METAL BONDING WORKER.GERICARE AIDE [address] [place] [address] Fundraising Coordinator Family Medicine 10/16/24 Team Status: Inactive Member [...] BE BASED ON THE PRIMARY CLINICAL RECORDS. [employer] provides no warranty or guarantee of the accuracy or completeness of information in this document.
[2024-11-29 23:02] LABS: Magnesium 2.3 mg/dL (1.5-2.2)
[2024-11-29 23:16] LABS: Alcohol, Blood (Medical)-Serum < 10.1 mg/dL (<=10.0)
[2024-11-30] VITALS (8 sets, daily range): BP systolic 136–145; BP diastolic 51–56; PULSE 60–65; RESP 16–18; TEMP 36.6–36.8; O2SAT 95–99; BMI 39.3
[2024-11-30] MEDS: 0.9% Saline Lock 10 ML Syringe IV ×3 (00:16→23:00)
[2024-11-30 00:28] LABS: Vitamin B12 2838 pg/mL (180-914)
[2024-11-30] MEDS: Glycerin/Hypromellose/PEG400 15 ml Bottle EACH EYE (05:34)
[2024-11-30 06:42] LABS: Hematocrit 33.8 % (37-47); Hemoglobin 11.2 g/dL (12.0-15.0); Immature Granulocytes Count 0.070 X10^3/uL (0.0-0.0); Mean Corp Hgb Conc 33.1 g/dL (32-36); Mean Corpuscular Volume 90.9 fL (81-99); Mean Platelet Vol. 9.7 fl (6.2-12.0); NRBC Flagged by Analyzer 0 % (0-5); Platelet Count 212 K/mm3 (150-450); RBC Distribution Width CV 14.6 % (11.6-14.6); RBC Distribution Width SD 48.4 fl (35.1-43.9); Red Blood Count 3.72 M/mm3 (4.2-5.4); White Blood Count 9.4 K/mm3 (4.4-11.0)
[2024-11-30 06:59] LABS: AST(SGOT) 25 U/L (<=31); Alanine Aminotransfer ALT/SGPT 36 U/L (<=34); Albumin, Serum 3.6 g/dL (3.4-4.8); Alkaline Phosphatase 58 U/L (35-104); Anion Gap 10 (5-15); BUN 35 mg/dL (4-19); BUN/Creat Ratio 27.8 RATIO (10-20); Calcium,Total 8.9 mg/dL (7.6-11.0); Carbon Dioxide 26.1 mmol/L (21.0-32.0); Chloride 99 mmol/L (98-108); Cholesterol 148 mg/dL (<=200); Estimated Creatinine Clearance 41.49 ml/min (50-250); Globulin 2.3 g/dL (2.2-4.2); Glucose 111 mg/dL (70-99); Low Density Lipoprotein Calc. 53 mg/dL; Potassium 4.7 mmol/L (3.3-5.1); Triglycerides 88 mg/dL; Very Low Density Lipoprotein 18 mg/dL (5-40); cholesterol:hdl ratio screen 1.91
[2024-11-30] MEDS: Budesonide Respules 0.5 MG/2 ML AMPUL.NEB. INHALATION (07:30)
[2024-11-30 07:44] LABS: FOLATES,SERUM (FOLIC ACID) 26.00 ng/mL (4.60-34.80)
[2024-11-30] MEDS: Aspirin E.C. 81 MG Tablet PO (09:17)
[2024-11-30] MEDS: Vitamin B Comp W-C Capsule 1 CAP PO (09:17)
[2024-11-30 14:07] LABS: Barbiturate Urine NEGATIVE (< 200 ng/mL); Benzodiazepine Urine PRESUMPTIVE POSITIVE (< 200 ng/mL); PCP Urine NEGATIVE (< 25 ng/mL); THC Urine NEGATIVE (< 50 ng/mL)
--- NOTE | 2024-11-30 14:20 | CT_ITS ---
PROCEDURE: BRAIN/HEAD WITHOUT CONTRAST 11/30/2024 REASON FOR EXAM: CVA R/O, CANT HAVE MRI TECHNIQUE: BRAIN/HEAD WITHOUT CONTRAST Coronal and Sagittal reconstruction series were provided. One or more dose reduction techniques were used (e.g., Automated exposure control, adjustment of the mA and/or kV according to patient size, use of iterative reconstruction technique. RADIATION DOSE SUMMARY: CTDlvol: 44.99 mGy DLP: 863.60 mGycm COMPARISON: 11/29/2024 and 12/26/2021 FINDINGS: BRAIN: No acute intraparenchymal hemorrhage. No mass lesion. No CT evidence for acute territorial infarct. No midline shift or extra-axial collection. VENTRICLES: No hydrocephalus. ORBITS: Intraocular lens implants bilaterally. The orbits are otherwise unremarkable. SINUSES AND MASTOIDS: The paranasal sinuses and mastoid air cells are clear. SOFT TISSUES: No acute abnormality seen. BONES: No acute osseous abnormality seen. OTHER: Calcified carotid siphons and vertebral arteries. CT/Brain/Head without Contrast IMPRESSION: No acute intracranial abnormality. Reading Location: [id number]
--- NOTE | 2024-11-30 14:20 | CT_ITS ---
PROCEDURE: BRAIN/HEAD WITHOUT CONTRAST 11/30/2024 REASON FOR EXAM: CVA R/O, CANT HAVE MRI TECHNIQUE: BRAIN/HEAD WITHOUT CONTRAST Coronal and Sagittal reconstruction series were provided. One or more dose reduction techniques were used (e.g., Automated exposure control, adjustment of the mA and/or kV according to patient size, use of iterative reconstruction technique. RADIATION DOSE SUMMARY: CTDlvol: 44.99 mGy DLP: 863.60 mGycm COMPARISON: 11/29/2024 and 12/26/2021 FINDINGS: BRAIN: No acute intraparenchymal hemorrhage. No mass lesion. No CT evidence for acute territorial infarct. No midline shift or extra-axial collection. VENTRICLES: No hydrocephalus. ORBITS: Intraocular lens implants bilaterally. The orbits are otherwise unremarkable. SINUSES AND MASTOIDS: The paranasal sinuses and mastoid air cells are clear. SOFT TISSUES: No acute abnormality seen. BONES: No acute osseous abnormality seen. OTHER: Calcified carotid siphons and vertebral arteries. CT/Brain/Head without Contrast IMPRESSION: No acute intracranial abnormality. Reading Location: [id number]
--- NOTE | 2024-11-30 15:58 | CASEMGMT ---
GLYNN STEPHENS note: Intro role of CM to patient and FELIPE form explained re: Observation status for treatment of hypertensive emergency and right upper and right lower extremity tremors.? Explained hospitalization will be paid per?her insurance policy for Outpatient billing?and condition will continue to be evaluated for Inpt necessity. Also let pt know that [facility] sends paper in the billing packet with their phone number if questions arise. Pt verbalizes understanding and does not have further questions. ?Form signed, copy made and placed in chart, and original given to pt. Judi TEJEDA RN CM
--- NOTE | 2024-11-30 16:26 | PN.HOSP_ITS ---
Subjective Subjective No issues overnight, admitted with hypertensive urgency and tremors. She says that she has the tremors whenever she just stands up but otherwise does not have tremors Objective Data Objective Data Vital Signs: Vital Signs Temp Pulse Resp BP Pulse Ox O2 Del Method O2 Flow Rate 98.1 F 60 18 139/52 H 96 Room Air 2 11/30/24 14:50 11/30/24 14:50 11/30/24 14:50 11/30/24 14:50 11/30/24 14:50 11/30/24 14:50 11/30/24 14:27 Oxygen Flow Rate (L/min) 2 Oxygen Delivery Method Room Air Weight: 236 lb 5.369 oz Body Mass Index (BMI) 39.3 Intake & Output: Intake and Output for Last 24 Hours 11/29/24 11/30/24 12/01/24 03:59 03:59 03:59 Intake Total 240 / 240 240 / 240 Output Total 650 / 650 400 / 400 Balance -410 / -410 -160 / -160 Lab / Micro Data 11/30/24 06:33 11/30/24 06:33 Labs: Laboratory Results - last 24 hr 11/29/24 16:33: WBC 9.6, RBC 3.86 L, Hgb 11.6 L, Hct 34.5 L, MCV 89.4, MCH 30.1, MCHC 33.6, RDW Std Deviation 46.8 H, RDW Coeff of Chandu 14.4, Plt Count 201, MPV 10.2, Immature Gran % (Auto) 0.500, Neut % (Auto) 72.4 H, Lymph % (Auto) 11.5 L, [place] % (Auto) 12.1 H, Eos % (Auto) 2.9, Baso % (Auto) 0.6, Absolute Neuts (auto) 7.0, Absolute Lymphs (auto) 1.10, Nucleated RBC % 0, Sodium 133, Potassium 5.0, Chloride 98, Carbon Dioxide 22.9, Anion Gap 12, BUN 38 H, Creatinine 1.11, Estim Creat Clear Calc 48.43 L, Est GFR (MDRD) Non-Af 49 L, BUN/Creatinine Ratio 34.3 H, Glucose 94, Hemoglobin A1c 5.7, Calcium 8.9, Magnesium 2.3 H, Total Bilirubin 0.57, AST 29, ALT 37 H, Alkaline Phosphatase 63, Total Protein 6.3, Albumin 4.0, Globulin 2.4, Albumin/Globulin Ratio 1.7, Lipase 20, Vitamin B12 2838 H, TSH 2.190 11/29/24 16:33: TSH 2.120, Urine Color Yellow, Urine Clarity Clear, Urine pH 6.0, Ur Specific [place] 1.010, Urine Protein Negative, Urine Glucose (UA) Normal, Urine Ketones Negative, Urine Occult Blood Negative, Urine Nitrite Negative, Urine Bilirubin Negative, Urine Urobilinogen Normal, Ur Leukocyte Esterase 500 H, Urine RBC 0 SEEN, Urine WBC 0-5 SEEN, Ur Squamous Epith Cells 0- 5 SEEN, Urine Bacteria 0 SEEN, Urine Mucus 0 SEEN, Ethyl Alcohol < 10.1 11/30/24 06:33: WBC 9.4, RBC 3.72 L, Hgb 11.2 L, Hct 33.8 L, MCV 90.9, MCH 30.1, MCHC 33.1, RDW Std Deviation 48.4 H, RDW Coeff of Chandu 14.6, Plt Count 212, MPV 9.7, Immature Gran % (Auto) 0.700, Neut % (Auto) 73.5 H, Lymph % (Auto) 9.5 L, M sho % (Auto) 13.0 H, Eos % (Auto) 2.8, Baso % (Auto) 0.5, Absolute Neuts (auto) 6.9, Absolute Lymphs (auto) 0.89, Nucleated RBC % 0, Sodium 136, Potassium 4.7, Chloride 99, Carbon Dioxide 26.1, Anion Gap 10, BUN 35 H, Creatinine 1.25 H, E stim Creat Clear Calc 41.49 L, Est GFR (MDRD) Non-Af 43 L, BUN/Creatinine Ratio 27.8 H, Glucose 111 H, Calcium 8.9, Phosphorus 3.8, Total Bilirubin 0.50, AST 25, ALT 36 H, Alkaline Phosphatase 58, Total Protein 5.9, Albumin 3.6, Globulin 2.3, Albumin/Globulin Ratio 1.6, Triglycerides 88, Cholesterol 148, LDL Cholesterol, Calc 53, VLDL Cholesterol 18, HDL Cholesterol 78, Cholesterol/HDL Ratio 1.91, Serum Folate 26.00 11/30/24 13:20: Urine Opiates Screen NEGATIVE, U Buprenorphine Qual NEGATIVE, Ur Oxycodone Screen NEGATIVE, Urine Methadone Screen NEGATIVE, Urine Fentanyl Screen NEGATIVE, Ur Barbiturates Screen NEGATIVE, Ur Phencyclidine Scrn NEGATIVE, Ur Amphetamines Screen NEGATIVE, U Benzodiazepines Scrn PRESUMPTIVE POSITIVE, Urine Cocaine Screen NEGATIVE, U Cannabinoids Screen NEGATIVE Radiography Diagnostic Testing: Radiology Impression Brain CT 11/29/24 16:22 IMPRESSION: No acute intracranial abnormality. Reading Location: [facility] Brain CT 11/30/24 14:20 IMPRESSION: No acute intracranial abnormality. Reading Location: [facility] Physical Exam Narrative General: Alert, Oriented x3, Cooperative, No apparent distress HEENT: Atraumatic, PERRLA, EOMI, Normocephalic Oral: Moist Mucosa Neck: Supple, No JVD Lungs: Diminished, Normal air movement, No rhonchi, No wheeze, No rales Cardiovascular: Regular rate, Regular Rhythm, Normal S1, Normal S2, No murmurs Abdomen: Soft, Non Tender, Non-Distended, No Hepato-splenomegaly Extremities: No edema, Capillary Refill Less than 3 Seconds Skin: No rashes, No breakdown Musculoskeletal: No Tenderness to Palpation of Joints or Extremities Neurological: No focal neurological deficits, moves all extremities, sensation intact Psych/Mental Status: Normal Affect, Appropriate Assessment & Plan Assessment/Plan (1) Tremor: (2) Hypertensive urgency: PLAN: Plan 1. Hypertensive urgency/paroxysmal A-fib/essential HTN/HLD/history of sick sinus syndrome status post pacemaker/history of TIA/pulmonary hypertension ? Blood pressures were elevated to 229/78, seems a little bit incongruous to have such a wide pulse pressure not sure that the 229 is accurate especially since the rest of her blood pressures are stable and there has not been any significant adjustments to her blood pressure medications, I did make her hydralazine 50 mg 3 times daily instead of twice daily but otherwise her home medications were continued as it is ? Will not repeat carotids as she had them done in July and there were less than 50% stenosis bilaterally ? She could not obtain an MRI secondary to her pacemaker so repeated CT scan this afternoon which was negative for stroke ? PT/OT for evaluation of possible placement ? Continue with statin and aspirin ? The tremors do not appear consistent with stroke, will monitor 2. Hypothyroidism ? Stable ? Continue with Synthroid 3. Neuropathy ? Stable ? Continue with gabapentin 4. GERD with history of GI bleed ? Stable ? Continue PPI and Carafate 5. Anxiety/depression ? Stable ? Continue with her home medications DVT: SCDs Charges/Coding Visit Charges Inpatient E&M: 32739 Subs Hosp L2
[2024-12-01] VITALS (10 sets, daily range): BP systolic 131–149; BP diastolic 43–61; PULSE 60–64; RESP 16–18; TEMP 36.1–36.7; O2SAT 94–99; BMI 38.9
[2024-12-01] MEDS: Budesonide Respules 0.5 MG/2 ML AMPUL.NEB. INHALATION ×2 (06:37→20:40)
[2024-12-01 07:00] LABS: Hematocrit 31.7 % (37-47); Hemoglobin 10.5 g/dL (12.0-15.0); Immature Granulocytes Count 0.030 X10^3/uL (0.0-0.0); Mean Corp Hgb Conc 33.1 g/dL (32-36); Mean Corpuscular Volume 90.3 fL (81-99); Mean Platelet Vol. 10.1 fl (6.2-12.0); NRBC Flagged by Analyzer 0 % (0-5); Platelet Count 196 K/mm3 (150-450); RBC Distribution Width CV 14.8 % (11.6-14.6); RBC Distribution Width SD 48.8 fl (35.1-43.9); Red Blood Count 3.51 M/mm3 (4.2-5.4); White Blood Count 8.9 K/mm3 (4.4-11.0)
[2024-12-01 07:28] LABS: Anion Gap 9 (5-15); BUN 33 mg/dL (4-19); BUN/Creat Ratio 26.4 RATIO (10-20); Calcium,Total 8.4 mg/dL (7.6-11.0); Carbon Dioxide 26.3 mmol/L (21.0-32.0); Chloride 96 mmol/L (98-108); Estimated Creatinine Clearance 41.95 ml/min (50-250); Glucose 110 mg/dL (70-99); Potassium 4.7 mmol/L (3.3-5.1)
[2024-12-01] MEDS: Vitamin B Comp W-C Capsule 1 CAP PO (08:55)
[2024-12-01] MEDS: Aspirin E.C. 81 MG Tablet PO (08:56)
[2024-12-01] MEDS: 0.9% Saline Lock 10 ML Syringe IV (08:57)
--- NOTE | 2024-12-01 10:16 | CASEMGMT ---
Social Work SW met with pt to discuss discharge plan. Pt states that she lives alone in a mobile home. Previously pt has been independent with ADLs and IADLs but in the recent week, she has had a decline and pt does not feel she can return home at this time. Therapy notes reviewed and pt would benefit from short term placement for rehabilitation prior to return home. SW discussed Inpatient Rehabilitation with pt and pt is agreeable. Pt requesting [facility] [place] and denies need for list of options if they are able to accept. Referral sent to Teod[facility] in [place]. [facility]URAV will await determination of acceptance. KAYLEN Ray
--- NOTE | 2024-12-01 10:16 | CASEMGMT ---
Social Work SW met with pt to discuss discharge plan. Pt states that she lives alone in a mobile home. Previously pt has been independent with ADLs and IADLs but in the recent week, she has had a decline and pt does not feel she can return home at this time. Therapy notes reviewed and pt would benefit from short term placement for rehabilitation prior to return home. SW discussed Inpatient Rehabilitation with pt and pt is agreeable. Pt requesting [facility] [place] and denies need for list of options if they are able to accept. Referral sent to Teodora in [place]. [place] will await determination of acceptance. KAYLEN Ray
--- NOTE | 2024-12-01 12:43 | NEURO.CONS ---
Assessment and Plan: Neuro Assessment/Plan 84 F with a past medical history of essential hypertension, hyperlipidemia, hypothyroidism paroxysmal atrial fibrillation SSS; s/p PPM (2021), morbid obesity, JOSE, pulmonary hypertension, neuropathy; depression with anxiety OA who presented to [facility] ER complaining of Right upper and lower extremity jitterness and difficulty walking. Her exam is reassuring with no focal findings. Her CT head did not show acute findings. There is no ataxia, or dysmetria on exam. When she stands up she jitters all over She is unable to obtain MRI due to pacemaker, no need for transfer for MRI, given her symptoms are not consistent with stroke. She has no focal findings on exam. She is resting comfortably in chair during the interview and enjoying lunch. She stands up and get jittery for few seconds then can stand still very comfortably, then we she is asked to take a step forwards she starts jittering again and falls back to her chair. Recommend physical therapy. We will sign off. Please call with questions. I personally attended this patient and spent a total time of 45 minutes evaluating this patient including clinical assessment, review of chart, medical history imaging, and determining appropriate treatment and workup. HPI Consult Data Date of Consult: 12/01/24 HPI Narrative HPI Narrative: 84 F with a past medical history of essential hypertension, hyperlipidemia, hypothyroidism paroxysmal atrial fibrillation SSS; s/p PPM (2021), morbid obesity, JOSE, pulmonary hypertension, neuropathy; depression with anxiety OA who presented to [facility] ER complaining of Right upper and lower extremity jitterness and difficulty walking. Patient reports on Wednesday, she was at a diabetic class, when she stood up right side was shaking arm and leg not as bad as the right foot, the right foot was her biggest problem. When she tried to walk, her legs and knees gave up. She fell backwards. Her friend took you home, she had this problem through out until she got to her house. Then that evening, she felt better, and she went to bed and when she woke up on Wednesday it has returned, and it was harder for her to move. She ?presented to the hospital, blood pressure was 229/78. She uses a cane and a rollator at baseline. She has right leg tingling/numbness at baseline. She has a balance problem at baseline and she usually has someone assist her on the left side. She can?t walk for long because her legs gets tired. She reports she has a R foot drop at baseline. She is currently feeling better but the shaking is still there when she stands up. PHYSICAL EXAM: Exam performed with help of the nurse/HARJIT present with patient on Tele site NEURO: Patient is resting comfortably in chair, enjoying lunch during the interview. AAOx3, follows commands, no aphasia/dysarthria. EOMI, no gaze preference/nystagmus. Face symmetric, Intact facial sensation. Head turning intact. Sensation: intact to light touch all over, including face, arms and legs, feels equal on both side. Motor: All extremities antigravity Hip flexion 5/5 bilaterally, knee flexion and extension. Foot dorsal and plantar flexion 5/5 bilaterally (Though she reports R foot drop at baseline) Coordination: FTN intact bilaterally Upon standing up she gets jittery all over in her place for few seconds, then she stands still. Then when she takes a step forwards she starts jittering again and she threw herself back to her chair. 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 Right carotid bruit Pulmonary hypertension Obesity TIA (transient ischemic attack) (12/2018) GI bleed (2018) Essential (primary) hypertension Osteoarthritis Anxiety Daytime somnolence Dysmetabolic syndrome X Allergic rhinitis Malignant melanoma of skin of trunk, except scrotum Hyperlipidemia FH: sudden cardiac (SCD) Depression Paroxysmal atrial fibrillation Sick sinus syndrome Carotid artery disease Home Medications ?Medication ?Instructions ?Recorded ?Last Taken ?Type lorazepam 0.5 mg tablet 0.5 mg PO BID PRN PRN Anxiety 05/13/16 Unknown History aspirin 81 mg tablet,delayed 81 mg PO QDAY [facility] #90 tabs 12/27/18 Unknown Rx release (Adult Low Dose Aspirin) coenzyme Q10 100 mg capsule (Co 100 mg PO DAILY supplement 01/23/20 Unknown History Q-10) rosuvastatin 10 mg tablet 10 mg PO DAILY cholesterol 01/23/20 Unknown History sucralfate 100 mg/mL oral 10 ml PO TID PRN digestion 11/25/21 Unknown History suspension cyclosporine 0.05 % eye drops in a 1 drp EACH EYE Q12H eye health 09/27/23 Unknown History dropperette (Restasis) albuterol sulfate 90 mcg/actuation 2 puff inhalation Q6H PRN 10/02/23 Unknown Rx aerosol inhaler (ProAir HFA) shortness of breath or wheezing #6.7 grams levothyroxine 50 mcg capsule 50 mcg PO QDAY 01/25/24 Unknown History spironolactone 25 mg tablet 25 mg PO DAILY #30 tabs 01/25/24 Unknown Rx fluticasone propionate 110 1 inh inhalation Q12H 04/30/24 Unknown History mcg/actuation HFA aerosol inhaler meloxicam 15 mg tablet 15 mg PO DAILY 04/30/24 Unknown History vitamin B complex (Balanced B-50 1 tab PO DAILY 04/30/24 Unknown History tablet) diltiazem HCl 240 mg 240 mg PO QHS heart #90 caps 05/15/24 Unknown Rx capsule,extended release 24 hr hydralazine 50 mg tablet 50 mg PO BID #180 tabs 06/01/24 Unknown Rx furosemide 20 mg tablet 20 mg PO QDAY 07/06/24 Unknown History amiodarone 200 mg tablet 200 mg PO DAILY heart #90 tabs 07/20/24 Unknown Rx losartan 100 mg tablet 100 mg PO DAILY blood pressure #90 09/11/24 Unknown Rx tabs azelastine 0.05 % eye drops 1 drp ophthalmic (eye) BID PRN 11/02/24 Unknown History omeprazole 20 mg capsule,delayed 20 mg PO QDAY 11/02/24 Unknown History release paroxetine HCl 40 mg tablet 40 mg PO QDAY 11/02/24 Unknown History gabapentin 100 mg capsule 100 mg PO DAILY neuropathy 11/29/24 Unknown History prednisone 10 mg tablet 10 mg PO DAILY 11/29/24 Unknown History Allergy/AdvReac Type Severity Reaction Status Date / Time ciprofloxacin (From Cipro) Allergy Rash Verified 11/29/24 16:08 Penicillins (PCN) Allergy Hives Verified 11/29/24 16:08 Sulfa (Sulfonamide Allergy Hives Verified 11/29/24 16:08 Antibiotics) Beta-Blockers AdvReac Other Verified 11/29/24 16:08 (Beta-Adrenergic Bloc hydrocodone (From Vicodin) AdvReac Other Verified 11/29/24 16:08 lisinopril AdvReac cough Verified 11/29/24 16:08 meperidine (From Demerol) AdvReac Vomiting Verified 11/29/24 16:08 morphine AdvReac Other Verified 11/29/24 16:08 pravastatin AdvReac Other Verified 11/29/24 16:08 Family History Grandfather Myocardial infarction Sudden cardiac Father Myocardial infarction CAD (coronary artery disease) CHF (congestive heart failure) Mother Myocardial infarction CAD (coronary artery disease) A-fib Brother A-fib CHF (congestive heart failure) Brother Cancer Son Diabetes Son Hypertension Surgical History History of permanent cardiac pacemaker placement (06/09/21) History of esophagogastroduodenoscopy (EGD) (09/07/18) History of left heart catheterization (LHC) (05/2011) 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) History of total right knee replacement (TKR) (~08/2011) History of right hip replacement (~2003) History of cholecystectomy History of total left knee replacement (TKR) Social History housing: house Smoking Status: Never smoker alcohol intake: never substance use type: does not use caffeine: Yes what type of physical activity do you participate in: none seatbelt use: always Vital Signs Vital Signs Vital Signs: 11/30/24 14:27 11/30/24 14:50 11/30/24 14:50 Temperature 98.1 F Temperature Source Temporal Pulse Rate 60 60 Pulse Strength Respiratory Rate 18 Respiratory Effort Normal Non-Labored Respiratory Depth Normal Respiratory Pattern Normal Blood Pressure 139/52 H 139/52 H Blood Pressure Mean 81 Blood Pressure Source Monitor Blood Pressure Position Semi-Fowlers Blood Pressure Location Right Arm Pulse Ox 96 Oxygen Delivery Method Nasal Cannula Room Air Oxygen Flow Rate (L/min) 2 11/30/24 19:48 11/30/24 22:15 11/30/24 22:18 Temperature 97.8 F Temperature Source Oral Pulse Rate 60 60 Pulse Strength Respiratory Rate 16 Respiratory Effort Normal Non-Labored Respiratory Depth Normal Respiratory Pattern Normal Blood Pressure 137/51 H 137/51 H Blood Pressure Mean 79 Blood Pressure Source Monitor Blood Pressure Position Semi-Fowlers Blood Pressure Location Right Arm Pulse Ox 95 Oxygen Delivery Method Room Air Room Air Oxygen Flow Rate (L/min) 12/01/24 04:10 12/01/24 04:15 12/01/24 06:10 Temperature 96.9 F L 97.6 F L Temperature Source Temporal Temporal Pulse Rate 63 61 Pulse Strength Respiratory Rate 16 16 Respiratory Effort Normal Non-Labored Respiratory Depth Normal Respiratory Pattern Normal Blood Pressure 131/51 H 134/61 H Blood Pressure Mean 77 85 Blood Pressure Source Monitor Monitor Blood Pressure Position Semi-Fowlers Semi-Fowlers Blood Pressure Location Right Arm Right Arm Pulse Ox 99 97 Oxygen Delivery Method Nasal Cannula Nasal Cannula Room Air Oxygen Flow Rate (L/min) 2 2 12/01/24 06:11 12/01/24 06:38 12/01/24 06:38 Temperature Temperature Source Pulse Rate 61 64 Pulse Strength Respiratory Rate 16 Respiratory Effort Respiratory Depth Respiratory Pattern Normal Blood Pressure 134/61 H Blood Pressure Mean Blood Pressure Source Blood Pressure Position Blood Pressure Location Pulse Ox 94 Oxygen Delivery Method Room Air Oxygen Flow Rate (L/min) 12/01/24 08:14 12/01/24 08:43 12/01/24 08:55 Temperature 97.7 F L Temperature Source Temporal Pulse Rate 60 Pulse Strength Normal (2+) Respiratory Rate 18 Respiratory Effort Normal Non-Labored Respiratory Depth Normal Respiratory Pattern Normal Blood Pressure 144/51 H Blood Pressure Mean 82 Blood Pressure Source Monitor Blood Pressure Position Semi-Fowlers Blood Pressure Location Right Arm Pulse Ox 95 Oxygen Delivery Method Room Air Room Air Oxygen Flow Rate (L/min) Weight Weight: 106.2 kg Body Mass Index (BMI) 38.9 EEG Results Procedure Details EEG Procedure Details: MICHAEL MEIER is a 84 year old F with a past medical history of , who presents for evaluation of Electroencephalogram on DATE at TIME Lab / Micro Data 12/01/24 06:21 12/01/24 06:21 Labs: Laboratory Results - last 24 hr 11/30/24 13:20: Urine Opiates Screen NEGATIVE, U Buprenorphine Qual NEGATIVE, Ur Oxycodone Screen NEGATIVE, Urine Methadone Screen NEGATIVE, Urine Fentanyl Screen NEGATIVE, Ur Barbiturates Screen NEGATIVE, Ur Phencyclidine Scrn NEGATIVE, Ur Amphetamines Screen NEGATIVE, U Benzodiazepines Scrn PRESUMPTIVE POSITIVE, Urine Cocaine Screen NEGATIVE, U Cannabinoids Screen NEGATIVE 12/01/24 06:21: WBC 8.9, RBC 3.51 L, Hgb 10.5 L, Hct 31.7 L, MCV 90.3, MCH 29.9, MCHC 33.1, RDW Std Deviation 48.8 H, RDW Coeff of Chandu 14.8 H, Plt Count 196, MPV 10.1, Immature Gran % (Auto) 0.300, Neut % (Auto) 70.9 H, Lymph % (Auto) 13.0 L, [place] % (Auto) 12.3 H, Eos % (Auto) 2.9, Baso % (Auto) 0.6, Absolute Neuts (auto) 6.3, Absolute Lymphs (auto) 1.16, Nucleated RBC % 0, Sodium 131 L, Potassium 4.7, Chloride 96 L, Carbon Dioxide 26.3, Anion Gap 9, BUN 33 H, Creatinine 1.23 H, Estim Creat Clear Calc 41.95 L, Est GFR (MDRD) Non-Af 44 L, BUN/Creatinine Ratio 26.4 H, Glucose 110 H, Calcium 8.4 Imaging Radiology Impression Echocardiogram 11/29/24 21:46 Interpretation Summary Normal LV size. Left ventricular systolic function is normal. Moderate concentric left ventricular hypertrophy. The left ventricular ejection fraction is 60 %. Pulmonary artery systolic pressure is 65 mmHg. Moderate pulmonary hypertension. Ordering Physician: Tacho Davis Referring Physician: Michael Puga, Performed By: Elzbieta Hampton and Student Brain CT 11/30/24 14:20 IMPRESSION: No acute intracranial abnormality. Reading Location: [facility] Active Medications Active Medications Active Medications: Current Medications Generic Name Dose Route Start Last Admin Trade Name Freq PRN Reason Stop Dose Admin Acetaminophen 650 mg 11/29/24 22:56 11/30/24 08:00 Acetaminophen 325 Mg Tablet PO 650 mg Q6H PRN PRN Administration Pain 1-10 Or Fever>100.7 Al Hydroxide/Mg Hydroxide 30 ml 11/29/24 22:56 Mag Hydrox/Al Hydrox/Simeth 30 Ml Udc PO Q6H PRN PRN Gastric Burning Albuterol Sulfate 2.5 mg 11/29/24 22:56 Albuterol 2.5 Mg/3 Ml Vial.Neb. INHALATION Q4H PRN PRN shortness of breath/wheezing Amiodarone HCl 200 mg 11/30/24 08:00 12/01/24 08:56 Amiodarone 200 Mg Tablet PO 200 mg DAILYCM TERESSA Administration Aspirin 81 mg 11/30/24 08:00 12/01/24 08:56 Aspirin E.C. 81 Mg Tablet PO 81 mg BREAKFAST TERESSA Administration Atorvastatin Calcium 20 mg 11/30/24 22:00 11/30/24 22:18 Atorvastatin Calcium 20 Mg Tablet PO 20 mg QHS TERESSA Administration Azelastine HCl 1 ml 11/29/24 22:56 Azelastine Hcl 6 Ml Drops OPHTHALMIC BID PRN PRN ITCHING EYES Budesonide 0.5 mg 11/30/24 06:00 12/01/24 06:37 Budesonide Respules 0.5 Mg/2 Ml Ampul.Neb. INHALATION 0.5 mg Q12H.RT TERESSA Administration Diltiazem HCl 240 mg 11/29/24 22:56 11/30/24 22:18 Diltiazem Cd 240 Mg Capsule PO 240 mg QHS TERESSA Administration Protocol Furosemide 20 mg 11/30/24 10:00 12/01/24 08:56 Furosemide 20 Mg Tablet PO 20 mg DAILY TERESSA Administration Protocol Gabapentin 300 mg 11/29/24 23:45 11/30/24 22:19 Gabapentin 300 Mg Capsule PO 300 mg QHS TERESSA Administration Glycerin/Hypromellose/Polyethylene 1 - 2 drp 11/29/24 22:56 11/30/24 05:34 Glycerin/Hypromellose/[id number] 15 Ml Bottle EACH EYE 1 drp Q2H PRN PRN Administration DRY EYES Hydralazine HCl 10 mg 11/29/24 21:47 Hydralazine 20 Mg/Ml Vial IV Q8H PRN PRN SBP GREATER THAN 170 Protocol Hydralazine HCl 50 mg 11/30/24 08:00 12/01/24 06:11 Hydralazine 50 Mg Tablet PO 50 mg TID TERESSA Administration Protocol Sodium Chloride 250 mls @ 15 mls/hr 11/29/24 23:08 IV .[id number] PRN Additional IVPB Infusion Sodium Chloride 250 mls @ 15 mls/hr 11/29/24 23:08 IV .[id number] PRN Saline Flush Levothyroxine Sodium 50 mcg 11/30/24 06:00 12/01/24 06:11 Levothyroxine 50 Mcg Tablet PO 50 mcg DAILY@0600 TERESSA Administration Lorazepam 0.5 mg 11/29/24 22:56 11/30/24 22:44 Lorazepam 0.5 Mg Tablet PO 0.5 mg BID PRN PRN Administration Anxiety Lorazepam 1 mg 11/30/24 07:30 Lorazepam 1 Mg Tablet PO X1 PRN prior to MRI Losartan Potassium 100 mg 11/30/24 10:00 12/01/24 08:56 Losartan Potassium 100 Mg Tablet PO 100 mg DAILY TERESSA Administration Protocol Magnesium Hydroxide 30 ml 11/29/24 22:56 Magnesium Hydroxide 30 Ml Udc PO DAILY PRN PRN Constipation Melatonin 3 mg 11/29/24 22:56 Melatonin 3 Mg Tablet PO QHS PRN PRN INSOMNIA Meloxicam 15 mg 11/30/24 10:00 12/01/24 08:56 Meloxicam 15 Mg Tablet PO 15 mg DAILY TERESSA Administration Multivitamins 1 cap 11/30/24 10:00 12/01/24 08:55 Vitamin B Comp W-C Capsule PO 1 cap DAILY TERESSA Administration Ondansetron HCl 4 mg 11/29/24 22:56 Ondansetron 4 Mg/2 Ml Vial IV Q8H PRN PRN NAUSEA/VOMITING Pantoprazole Sodium 20 mg 11/30/24 10:00 12/01/24 08:56 Pantoprazole Sodium 20 Mg Tablet PO 20 mg DAILY TERESSA Administration Paroxetine HCl 40 mg 11/30/24 10:00 12/01/24 08:55 Paroxetine 20 Mg Tablet PO 40 mg DAILY TERESSA Administration Sodium Chloride 10 - 40 ml 11/29/24 23:08 12/01/24 08:57 0.9% Saline Lock 10 Ml Syringe IV 10 ml UD PRN Administration SALINE FLUSH Spironolactone 25 mg 11/30/24 08:00 12/01/24 08:56 Spironolactone 25 Mg Tablet PO 25 mg DAILYCM [facility] Administration Protocol Sucralfate 1 gm 11/29/24 22:56 Sucralfate 1 Gm Tablet PO TID PRN PRN digestion
--- NOTE | 2024-12-01 13:19 | CASEMGMT ---
Social Work Inpatient Rehab is able to accept pt on Wednesday. Physician notified and agreeable to dc plan. SW met with pt and informed and pt is agreeable. With pt permission, phone call to pt dgt Yumiko and dc plan discuss. Yumiko is agreeable to dc to [facility]. Green Sheet placed on chart to facilitate a weekend discharge. Plan: Inpatient Rehab, on Wednesday KAYLEN Ray
--- NOTE | 2024-12-01 14:51 | PCM.PN.HOSP ---
Reason for Visit Chief Complaint: Right Upper and Lower Extremity Tremors. Subjective Subjective Patient reports continued tremors when walking and difficulty getting around, agreeable to placement, no new complaints since admission Objective Data Objective Data Vital Signs: Vital Signs Temp Pulse Resp BP Pulse Ox O2 Del Method O2 Flow Rate 97.7 F L 60 18 145/43 H 95 Room Air 2 12/01/24 08:55 12/01/24 13:48 12/01/24 08:55 12/01/24 13:48 12/01/24 08:55 12/01/24 14:10 12/01/24 04:15 Oxygen Flow Rate (L/min) 2 Oxygen Delivery Method Room Air Weight: 106.2 kg Body Mass Index (BMI) 38.9 Intake & Output: Intake and Output for Last 24 Hours 11/29/24 11/30/24 12/01/24 23:59 23:59 23:59 Intake Total 840 / 840 240 / 240 Output Total 1250 / 1350 700 / 700 Balance -410 / -510 -460 / -460 Lab / Micro Data 12/01/24 06:21 12/01/24 06:21 Labs: Laboratory Results - last 24 hr 12/01/24 06:21: WBC 8.9, RBC 3.51 L, Hgb 10.5 L, Hct 31.7 L, MCV 90.3, MCH 29.9, MCHC 33.1, RDW Std Deviation 48.8 H, RDW Coeff of Chandu 14.8 H, Plt Count 196, MPV 10.1, Immature Gran % (Auto) 0.300, Neut % (Auto) 70.9 H, Lymph % (Auto) 13.0 L, [place] % (Auto) 12.3 H, Eos % (Auto) 2.9, Baso % (Auto) 0.6, Absolute Neuts (auto) 6.3, Absolute Lymphs (auto) 1.16, Nucleated RBC % 0, Sodium 131 L, Potassium 4.7, Chloride 96 L, Carbon Dioxide 26.3, Anion Gap 9, BUN 33 H, Creatinine 1.23 H, Estim Creat Clear Calc 41.95 L, Est GFR (MDRD) Non-Af 44 L, BUN/Creatinine Ratio 26.4 H, Glucose 110 H, Calcium 8.4 Radiography Diagnostic Testing: Radiology Impression Echocardiogram 07/30/25 21:46 Interpretation Summary Normal LV size. Left ventricular systolic function is normal. Moderate concentric left ventricular hypertrophy. The left ventricular ejection fraction is 60 %. Pulmonary artery systolic pressure is 65 mmHg. Moderate pulmonary hypertension. Ordering Physician: Tacho Davis Referring Physician: Michael Puga, Performed By: Elzbieta Hampton and Student Physical Exam Narrative General: Alert, oriented, no apparent distress HEENT: Atraumatic, normocephalic Eyes: Anicteric, normal conjunctiva, extraocular movements intact, pupils equal Neck: Supple Respiratory: Clear to auscultation bilaterally, normal respiratory effort Cardiovascular: Regular rate and rhythm GI: Soft, nontender, nondistended Extremities: No edema Musculoskeletal: Strength 5 out of 5 in right upper extremity, 5 out of 5 left upper extremity, 5 - out of 5 right lower extremity, 5 - out of 5 left lower extremity Neuro: No overt focal neurological deficits, cranial nerves II through XII intact, [id number] with some difficulty with left hand but not on right Skin: No rashes appreciated Psych: Cooperative Assessment & Plan Assessment/Plan (1) Tremor: (2) Hypertensive urgency: PLAN: Plan # Leg tremors -12/01: CT with no acute findings, feels jitters in her legs when she stands up. Did have patient evaluated by neurology given her continued complaints, unable to obtain MRI due to pacemaker and no need to transfer for MRI and no acute further workup given no focal findings on exam. Physical therapy was recommended and neuro signed off at this time. Did discuss patient's case and plan with neurologist. #Hypertensive urgency/paroxysmal A-fib/essential HTN/HLD/history of sick sinus syndrome status post pacemaker/history of TIA/pulmonary hypertension ? Blood pressures were elevated to 229/78, seems a little bit incongruous to have such a wide pulse pressure not sure that the 229 is accurate especially since the rest of her blood pressures are stable and there has not been any significant adjustments to her blood pressure medications, I did make her hydralazine 50 mg 3 times daily instead of twice daily but otherwise her home medications were continued as it is ? Will not repeat carotids as she had them done in July and there were less than 50% stenosis bilaterally ? She could not obtain an MRI secondary to her pacemaker so repeated CT scan this afternoon which was negative for stroke ? PT/OT for evaluation of possible placement ? Continue with statin and aspirin ? The tremors do not appear consistent with stroke, will monitor -12/01: Blood pressure improved with increase in hydralazine, continue current management Chronic medical problems and/or problems not being actively addressed during today's encounter: # Hypothyroidism ? Stable ? Continue with Synthroid # Neuropathy ? Stable ? Continue with gabapentin # GERD with history of GI bleed ? Stable ? Continue PPI and Carafate # Anxiety/depression ? Stable ? Continue with her home medications DVT: SCDs Time spent in the patient's overall evaluation,decision-making process, review of diagnostic data, adjustment of management, discussion with other providers, nursing nursing and ancillary staff involved in patient's care documentation, 43 Minutes Charges/Coding Visit Charges Inpatient E&M: 42650 Subs Hosp L2
[2024-12-02] VITALS (11 sets, daily range): BP systolic 116–164; BP diastolic 49–60; PULSE 58–63; RESP 14–18; TEMP 36.4–36.7; O2SAT 93–99; BMI 39.8
[2024-12-02] MEDS: Glycerin/Hypromellose/PEG400 15 ml Bottle EACH EYE ×2 (06:28→14:13)
[2024-12-02] MEDS: Budesonide Respules 0.5 MG/2 ML AMPUL.NEB. INHALATION ×2 (07:35→20:02)
[2024-12-02 08:14] LABS: Hematocrit 31.5 % (37-47); Hemoglobin 10.4 g/dL (12.0-15.0); Immature Granulocytes Count 0.070 X10^3/uL (0.0-0.0); Mean Corp Hgb Conc 33.0 g/dL (32-36); Mean Corpuscular Volume 90.5 fL (81-99); Mean Platelet Vol. 10.3 fl (6.2-12.0); NRBC Flagged by Analyzer 0 % (0-5); Platelet Count 193 K/mm3 (150-450); RBC Distribution Width CV 14.7 % (11.6-14.6); RBC Distribution Width SD 49.0 fl (35.1-43.9); Red Blood Count 3.48 M/mm3 (4.2-5.4); White Blood Count 9.7 K/mm3 (4.4-11.0)
[2024-12-02 08:52] LABS: Anion Gap 10 (5-15); BUN 31 mg/dL (4-19); BUN/Creat Ratio 30.6 RATIO (10-20); Calcium,Total 8.7 mg/dL (7.6-11.0); Carbon Dioxide 23.4 mmol/L (21.0-32.0); Chloride 96 mmol/L (98-108); Estimated Creatinine Clearance 51.70 ml/min (50-250); Glucose 106 mg/dL (70-99); Potassium 4.7 mmol/L (3.3-5.1)
[2024-12-02] MEDS: Aspirin E.C. 81 MG Tablet PO (09:43)
[2024-12-02] MEDS: Vitamin B Comp W-C Capsule 1 CAP PO (09:44)
--- NOTE | 2024-12-02 14:56 | CASEMGMT ---
Social Work Pt had questions about observation status. SW explained that her insurance will get billed as if she were an outpt, and that her secondary insurance may also roller picker some of the cost. SW explained if she has questions to call billing should she get a bill. Pt states understanding. SW available for any additional questions. RIZWAN Williamson
--- NOTE | 2024-12-02 14:56 | CASEMGMT ---
Social Work Pt had questions about observation status. SW explained that her insurance will get billed as if she were an outpt, and that her secondary insurance may also coal picker some of the cost. SW explained if she has questions to call billing should she get a bill. Pt states understanding. SW available for any additional questions. RIZWAN Williamson
--- NOTE | 2024-12-02 16:14 | PCM.PN.HOSP ---
Reason for Visit Chief Complaint: Right Upper and Lower Extremity Tremors. Subjective Subjective Feeling little bit better today, does still have tremors when she gets up to walk however if she stands still with her walker locked and decreased to the point where she was able to get around slowly with walker with assistance. Denies any new or acute complaints Objective Data Objective Data Vital Signs: Vital Signs Temp Pulse Resp BP Pulse Ox O2 Del Method O2 Flow Rate 97.9 F 58 L 14 164/60 H 95 Room Air 2 12/02/24 14:11 12/02/24 14:13 12/02/24 14:11 12/02/24 14:11 12/02/24 14:11 12/02/24 14:11 12/02/24 07:36 Oxygen Flow Rate (L/min) 2 Oxygen Delivery Method Room Air Weight: 108.5 kg Body Mass Index (BMI) 39.8 Intake & Output: Intake and Output for Last 24 Hours 11/30/24 12/01/24 12/02/24 23:59 23:59 23:59 Intake Total 840 / 840 600 / 600 150 / 150 Output Total 1250 / 1350 700 / 1200 800 / 800 Balance -410 / -510 -100 / -600 -650 / -650 Lab / Micro Data 12/02/24 07:14 12/02/24 07:14 Labs: Laboratory Results - last 24 hr 12/02/24 07:14: WBC 9.7, RBC 3.48 L, Hgb 10.4 L, Hct 31.5 L, MCV 90.5, MCH 29.9, MCHC 33.0, RDW Std Deviation 49.0 H, RDW Coeff of Chandu 14.7 H, Plt Count 193, MPV 10.3, Immature Gran % (Auto) 0.700, Neut % (Auto) 72.7 H, Lymph % (Auto) 11.2 L, [place] % (Auto) 11.7 H, Eos % (Auto) 3.1, Baso % (Auto) 0.6, Absolute Neuts (auto) 7.1, Absolute Lymphs (auto) 1.09, Nucleated RBC % 0, Sodium 130 L, Potassium 4.7, Chloride 96 L, Carbon Dioxide 23.4, Anion Gap 10, BUN 31 H, Creatinine 1.01, Estim Creat Clear Calc 51.70, Est GFR (MDRD) Non-Af 55 L, BUN/Creatinine Ratio 30.6 H, Glucose 106 H, Calcium 8.7 Physical Exam Narrative General: Alert, oriented, no apparent distress HEENT: Atraumatic, normocephalic Eyes: Anicteric, normal conjunctiva, extraocular movements grossly intact Neck: Supple Respiratory: Clear to auscultation bilaterally, normal respiratory effort Cardiovascular: Regular rate and rhythm GI: Soft, nontender, nondistended Extremities: No edema Musculoskeletal: Moving all extremities Neuro: No new overt focal neurological deficits Skin: No rashes appreciated Psych: Cooperative Assessment & Plan Assessment/Plan (1) Tremor: (2) Hypertensive urgency: PLAN: Plan # Leg tremors -12/01: CT with no acute findings, feels jitters in her legs when she stands up. Did have patient evaluated by neurology given her continued complaints, unable to obtain MRI due to pacemaker and no need to transfer for MRI and no acute further workup given no focal findings on exam. Physical therapy was recommended and neuro signed off at this time. Did discuss patient's case and plan with neurologist. -12/02: Was able to get around a little bit better with therapy however still shaky and unsteady and requiring assistance, not back to baseline. Plan is for inpatient rehab 12/30/2024 #Hypertensive urgency/paroxysmal A-fib/essential HTN/HLD/history of sick sinus syndrome status post pacemaker/history of TIA/pulmonary hypertension ? Blood pressures were elevated to 229/78, seems a little bit incongruous to have such a wide pulse pressure not sure that the 229 is accurate especially since the rest of her blood pressures are stable and there has not been any significant adjustments to her blood pressure medications, I did make her hydralazine 50 mg 3 times daily instead of twice daily but otherwise her home medications were continued as it is ? Will not repeat carotids as she had them done in July and there were less than 50% stenosis bilaterally ? She could not obtain an MRI secondary to her pacemaker so repeated CT scan this afternoon which was negative for stroke ? PT/OT for evaluation of possible placement ? Continue with statin and aspirin ? The tremors do not appear consistent with stroke, will monitor -12/01: Blood pressure improved with increase in hydralazine, continue current management -12/02: Blood pressure variable, this a.m. was 116/60 with some variation throughout the day, overall blood pressure reasonable in the acute setting, will need to be followed for any possible future adjustments on an outpatient basis Chronic medical problems and/or problems not being actively addressed during today's encounter: # Hypothyroidism ? Stable ? Continue with Synthroid # Neuropathy ? Stable ? Continue with gabapentin # GERD with history of GI bleed ? Stable ? Continue PPI and Carafate # Anxiety/depression ? Stable ? Continue with her home medications DVT: SCDs Charges/Coding Visit Charges Inpatient E&M: 33828 Subs Hosp L1
[2024-12-02] MEDS: Senna/Docusate Sodium 1 Tablet 2 TABLET PO (17:00)
[2024-12-03 03:30] VITALS: BP 112/60; PULSE 60; RESP 16; TEMP 36.8; O2SAT 95
[2024-12-03 05:52] VITALS: BP 126/58; PULSE 60
[2024-12-03 05:55] VITALS: BP 126/58; PULSE 60
[2024-12-03 06:00] VITALS: BMI 40.1
[2024-12-03 06:42] LABS: Hematocrit 31.2 % (37-47); Hemoglobin 10.6 g/dL (12.0-15.0); Mean Corp Hgb Conc 34.0 g/dL (32-36); Mean Corpuscular Volume 89.4 fL (81-99); Mean Platelet Vol. 10.3 fl (6.2-12.0); Platelet Count 202 K/mm3 (150-450); RBC Distribution Width CV 14.7 % (11.6-14.6); RBC Distribution Width SD 47.8 fl (35.1-43.9); Red Blood Count 3.49 M/mm3 (4.2-5.4); White Blood Count 9.8 K/mm3 (4.4-11.0)
[2024-12-03 07:02] VITALS: PULSE 69; RESP 18; O2SAT 96
[2024-12-03] MEDS: Budesonide Respules 0.5 MG/2 ML AMPUL.NEB. INHALATION (07:02)
[2024-12-03 07:03] LABS: Anion Gap 10 (5-15); BUN 35 mg/dL (4-19); BUN/Creat Ratio 34.2 RATIO (10-20); Calcium,Total 8.5 mg/dL (7.6-11.0); Carbon Dioxide 23.6 mmol/L (21.0-32.0); Chloride 95 mmol/L (98-108); Estimated Creatinine Clearance 51.99 ml/min (50-250); Glucose 116 mg/dL (70-99); Potassium 4.5 mmol/L (3.3-5.1)
[2024-12-03 09:30] VITALS: BP 146/46; PULSE 61; RESP 14; TEMP 36.6; O2SAT 99
[2024-12-03] MEDS: 0.9% Normal Saline (250mL Bag) 250 ML 999 ML IV (09:41)
[2024-12-03] MEDS: 0.9% Saline Lock 10 ML Syringe IV (09:41)
[2024-12-03] MEDS: Glycerin/Hypromellose/PEG400 15 ml Bottle EACH EYE (09:46)
[2024-12-03] MEDS: Vitamin B Comp W-C Capsule 1 CAP PO (09:47)
[2024-12-03] MEDS: Aspirin E.C. 81 MG Tablet PO (09:48)
[2024-12-03 12:23] LABS: Anion Gap 11 (5-15); BUN 31 mg/dL (4-19); BUN/Creat Ratio 30.7 RATIO (10-20); Calcium,Total 8.7 mg/dL (7.6-11.0); Carbon Dioxide 23.4 mmol/L (21.0-32.0); Chloride 94 mmol/L (98-108); Estimated Creatinine Clearance 51.48 ml/min (50-250); Glucose 111 mg/dL (70-99); Potassium 4.7 mmol/L (3.3-5.1)
--- NOTE | 2024-12-03 14:38 | DCINST_ITS ---
Discharge Instructions DC O2, CPAP, BIPAP needs Home O2 Discharge instructions: Yes Type of respiratory needs?: CPAP CPAP inst ructions: Pt wears cpap at home, has used 2L qhs here Follow Up Care Test Results: Test results from this visit will be discussed in further detail at your follow- up appointment, if applicable. Discharge Plan Admission Admit Date/Time: 11/29/24 21:39 Primary Reason for Your Visit: Leg tremors Attending Provider: Waleska Phillips Primary Care Provider: Michael Puga Consulting Providers: Tacho Davis; Jonny Vicente Instructions Patient Instructions: ED Fall Prevention Additional Instructions / Restrictions: DISCHARGE INSTRUCTIONS PLEASE READ *Please take this with you to your next doctors appointment* - You had a downtrend in sodium but indicated that you had decreased your water intake so you he would not have to ask her to go to the bathroom, suspect this in combination with your Lasix and spironolactone may have caused slight dehydration - Would recommend holding Lasix and spironolactone for 2 days and repeating BMP to assess sodium - If no improvement or any further downtrend could consider workup with urine studies and serum osmole's -Your hydralazine has been increased to 50mg three times daily -Please follow-up with neurology upon discharge, please call Dr. Kelsey's office upon discharge to schedule an appointment for your tremors (ph [phone]) -Please call your primary care provider's office upon discharge to schedule a hospital follow up within 1 week. -For any concerning signs or symptoms please call 911 or proceed to the nearest emergency department Discharge Orders/Prescriptions Prescriptions: New hydralazine 50 mg Tablet 50 mg PO TID Qty: 0 0RF Continued aspirin [Adult Low Dose Aspirin] 81 mg tablet,delayed release (DR/EC) 81 mg PO QDAY Qty: 90 3RF rosuvastatin 10 mg tablet 10 mg PO DAILY coenzyme Q10 [Co Q-10] 100 mg capsule 100 mg PO DAILY sucralfate 100 mg/mL suspension 10 ml PO TID PRN (Reason: digestion) Patient Comments: TAKE 10 ML BY MOUTH 4 TIMES DAILY levothyroxine 50 mcg capsule 50 mcg PO QDAY omeprazole 20 mg capsule,delayed release(DR/EC) 20 mg PO QDAY paroxetine HCl 40 mg tablet 40 mg PO QDAY cyclosporine [Restasis] 0.05 % dropperette 1 drp EACH EYE Q12H albuterol sulfate [ProAir HFA] 90 mcg/actuation HFA aerosol inhaler 2 puff inhalation Q6H PRN (Reason: shortness of breath or wheezing) Qty: 6.7 0RF lorazepam 0.5 MG tablet 0.5 mg PO BID PRN PRN (Reason: Anxiety) Qty: 6 0RF vitamin B complex [Balanced B-50] Tablet 1 tab PO DAILY fluticasone propionate 110 mcg/actuation HFA aerosol inhaler 1 inh inhalation Q12H meloxicam 15 mg tablet 15 mg PO DAILY azelastine 0.05 % drops 1 drp ophthalmic (eye) BID PRN prednisone 10 mg tablet 10 mg PO DAILY diltiazem HCl 240 mg capsule,extended release 24hr 240 mg PO QHS Qty: 90 3RF amiodarone 200 mg tablet 200 mg PO DAILY Qty: 90 3RF losartan 100 mg tablet 100 mg PO DAILY Qty: 90 3RF Changed gabapentin 100 mg capsule 300 mg PO QHS Qty: 12 0RF Patient Comments: per pt to start taking 300mg tonight per pcp instruction. Held spironolactone 25 mg tablet 25 mg PO DAILY Qty: 30 11RF Hold Instructions: Resume on 12/06/24. furosemide 20 mg tablet 20 mg PO QDAY Hold Instructions: Resume on 12/06/24. Discontinued hydralazine 50 mg tablet 50 mg PO BID Qty: 180 3RF Referrals / Follow Up: Michael Puga DO [Primary Care Provider] - Adama Kelsey MD [Non-Staff -Ordering Privileges] - Disposition Disposition (needs filled in before D/C Order can be placed): Inpatient Rehab Unit/Facility
[2024-12-03 14:55] VITALS: BP 154/55; PULSE 61; RESP 18; TEMP 36.4; O2SAT 96
--- NOTE | 2024-12-03 14:55 | DS.PCM_ITS ---
Providers Date of Admission: 11/29/24 Date of Discharge: 12/03/24 Primary Care Physician: Dr. Michael Puga DO Reason For Visit: HYPERTENSIVE EMERGENCY AND RUE WITH RLE TREMORS. Diagnosis Discharge Diagnosis (1) Tremor: Status: Acute Code(s): R25.1 - Tremor, unspecified (2) Hypertensive urgency: Status: Acute Code(s): I16.0 - Hypertensive urgency Plan # Leg tremors R>L #Hypertensive urgency vs emergency- resolved #paroxysmal A-fib #essential HTN #history of sick sinus syndrome status post pacemaker #history of TIA #hx JOSE # Hypothyroidism # Neuropathy # GERD # Anxiety/depression Medications at Discharge Home Medications aspirin 81 mg tablet,delayed release (Adult Low Dose Aspirin) 81 mg PO QDAY heart health #90 tabs 12/27/18 coenzyme Q10 100 mg capsule (Co Q-10) 100 mg PO DAILY supplement 01/23/20 rosuvastatin 10 mg tablet 10 mg PO DAILY cholesterol 01/23/20 sucralfate 100 mg/mL oral suspension 10 ml PO TID PRN digestion 11/25/21 cyclosporine 0.05 % eye drops in a dropperette (Restasis) 1 drp EACH EYE Q12H eye health 09/27/23 albuterol sulfate 90 mcg/actuation aerosol inhaler (ProAir HFA) 2 puff inhalation Q6H PRN shortness of breath or wheezing #6.7 grams 10/02/23 levothyroxine 50 mcg capsule 50 mcg PO QDAY 01/25/24 spironolactone 25 mg tablet 25 mg PO DAILY #30 tabs 01/25/24 Held on 12/03/24. Instructions: Resume on 12/06/24. fluticasone propionate 110 mcg/actuation HFA aerosol inhaler 1 inh inhalation Q12H 04/30/24 meloxicam 15 mg tablet 15 mg PO DAILY 04/30/24 vitamin B complex (Balanced B-50 tablet) 1 tab PO DAILY 04/30/24 diltiazem HCl 240 mg capsule,extended release 24 hr 240 mg PO QHS heart #90 caps 05/15/24 furosemide 20 mg tablet 20 mg PO QDAY 07/06/24 Held on 12/03/24. Instructions: Resume on 12/06/24. amiodarone 200 mg tablet 200 mg PO DAILY heart #90 tabs 07/20/24 losartan 100 mg tablet 100 mg PO DAILY blood pressure #90 tabs 09/11/24 azelastine 0.05 % eye drops 1 drp ophthalmic (eye) BID PRN 11/02/24 omeprazole 20 mg capsule,delayed release 20 mg PO QDAY 11/02/24 paroxetine HCl 40 mg tablet 40 mg PO QDAY 11/02/24 prednisone 10 mg tablet 10 mg PO DAILY 11/29/24 gabapentin 100 mg capsule 300 mg (3 x 100 mg) PO QHS neuropathy #12 caps 12/03/24 hydralazine 50 mg tablet 50 mg PO TID #0 tabs 12/03/24 lorazepam 0.5 mg tablet 0.5 mg PO BID PRN PRN Anxiety #6 tabs 12/03/24 Hospital Course Summary of Care Provided Minutes Spent on Discharge: 58 Hospital Course: 84-year-old female with a history of hypertension, JOSE, possible asthma/COPD, pulmonary hypertension, paroxysmal A-fib, sick sinus syndrome status post pacemaker, history of TIA, neuropathy, hypothyroidism, GERD, anxiety and depression who presented to [facility] ED 12/30/2024 due to reported right upper and lower extremity tremors and initial blood pressure reading of 229/78, CT head with no acute process but there was concern this could been hypertensive emergency so patient admitted to PCU and a MRI was also ordered to evaluate for possible CVA. Patient's blood pressure improved within a couple of hours and she had her hydralazine increased. Unable to get an MRI due to it being pacer incompatible but PT/OT consulted due to her difficulty with mobility due to the leg tremors. I took over care for patient on 12/01/2024 and she reported that the tremors were very specifically in her right leg and occasionally would be in other limbs as well and was when she got up and tried to walk and not just laying down, symptoms did not change with improvement in blood pressure. Consulted neurology for further guidance as this did not seem to be CVA however patient still having mobility difficulties to the point she is unable to safely be discharged home, where she had been prior to coming to the hospital. Neuro noted no focal findings on exam and CT head with no acute findings, it is noted that when she stood up she felt generally all over when she sits still it would improve in the jitters with starting and when she would take a step forward. It was not felt that this was CVA related or that there was anything acute that needed further worked up in the hospital. Patient worked with physical therapy and was still unsteady however progressively improved and verbalized understanding that she can follow-up on an outpatient basis if she continues to have tremors as it is possible she could need an EMG or other imaging but again, nothing acute. Patient was accepted to inpatient med rehab with bed planned 12/05/2024, she had no new acute complaints on 12/04 and did well throughout the day. Did note on day of discharge that sodium has continued to downtrend some. On further review, on 11/29/2024 sodium 133, earlier in the month it was also 133, had briefly spuriously elevated sodium of 136 on 11/30 with the following day at 131, more consistent with previous values, and down trended over a couple of days to 127. Patient completely asymptomatic, when discussed with her at bedside and she reports she is feeling well, also starting to feel stronger and getting better walking. She is completely asymptomatic. I mentioned her sodium downtrending and she noted that she has had problems with low sodium before but could not give much more information. Did end up revealing that she has decreased her p.o. intake over the last 3 days to avoid having to ask for help to go to the bathroom and she has still been getting her spironolactone and Lasix despite this decrease. Patient's sodium reviewed from previous draws and previous home health note from 05/18/2024, the day of patient's sodium was 128 and it was noted she had poor p.o. intake at that time as well. Appears she had improved p.o. intake and repeat lab work 06/02/2024 in our system with a sodium of 133 then returned to normal limits a month and a half later based on lab draw. I do think the downtrend is more likely due to patient's dual diuretics with her self-reported decreased p.o. intake, she is by no means fluid overloaded and mouth appears slightly dry, gave a small bolus of fluids and encourage p.o. intake and patient agreeable. Discussed with Dr. Anthony covering for med rehab over the weekend regarding patient being completely asymptomatic and stable and discussed continued hospitalization for further workup and monitoring versus going to med rehab in stable condition and labs can be repeated or worked up further if necessary. After discussing the case and the labs and patient's stability it was determined that is reasonable for patient to go to [facility] [place] rehab today. Her lab work is not to a degree that I believe would necessitate further acute medical hospitalization given there seems to be a likely explanation given patient's decreased p.o. intake with diuretics and suspicion for slight volume depletion with the timeline correlating to the downtrend. Patient is also stable and completely asymptomatic. Patient discharged to [facility] rehab in stable condition with the following discharge instructions: - You had a downtrend in sodium but indicated that you had decreased her water intake so you he would not have to ask her to go to the bathroom, suspect this in combination with your Lasix and spironolactone may have caused slight dehydration - Would recommend holding Lasix and spironolactone for 2 days and repeating BMP to assess sodium - If no improvement or any further downtrend could consider workup with urine studies and serum osmole's -Your hydralazine has been increased to 50mg three times daily -Please follow-up with neurology upon discharge, please call Dr. Kelsey's office upon discharge to schedule an appointment for your tremors (ph [phone]) Physical Exam Narrative General: Alert, oriented, no apparent distress HEENT: Atraumatic, normocephalic Eyes: extraocular movements grossly intact Neck: Supple Respiratory: normal respiratory effort, no overt wheezes or rhonchi Cardiovascular: no significant peripheral pitting edema appreciated GI: nondistended Extremities: Moving all extremities Neuro: No overt focal neurological deficits Psych: Cooperative Weight / BMI Weight Weight: 109.6 kg Body Mass Index (BMI) 40.1 ABG / Lab / Microbiology Data 12/03/24 05:55 12/03/24 11:58 Laboratory: Laboratory Results - last 24 hr 12/03/24 05:55: WBC 9.8, RBC 3.49 L, Hgb 10.6 L, Hct 31.2 L, MCV 89.4, MCH 30.4, MCHC 34.0, RDW Std Deviation 47.8 H, RDW Coeff of Chandu 14.7 H, Plt Count 202, MPV 10.3, Sodium 128 L, Potassium 4.5, Chloride 95 L, Carbon Dioxide 23.6, Anion Gap 10, BUN 35 H, Creatinine 1.01, Estim Creat Clear Calc 51.99, Est GFR (MDRD) Non- Af 55 L, BUN/Creatinine Ratio 34.2 H, Glucose 116 H, Calcium 8.5 12/03/24 11:58: Sodium 127 L, Potassium 4.7, Chloride 94 L, Carbon Dioxide 23.4, Anion Gap 11, BUN 31 H, Creatinine 1.02, Estim Creat Clear Calc 51.48, Est GFR (MDRD) Non-Af 55 L, BUN/Creatinine Ratio 30.7 H, Glucose 111 H, Calcium 8.7 D/C Instructions DC O2, CPAP, BIPAP Needs Home O2 Discharge instructions: Yes Type of respiratory needs?: CPAP CPAP instructions: Pt wears cpap at home, has used 2L qhs here DC home with Oxygen: No Meaningful Use Info Meaningful Use Meaningful Use Diagnoses (Choose all that apply): None applicable Discharge Plan Admission Admit Date/Time: 11/29/24 21:39 Primary Reason for Your Visit: Leg tremors Attending Provider: Waleska Phillips Primary Care Provider: Michael Puga Consulting Providers: Tacho Davis; Jonny Vicente Instructions Patient Instructions: ED Fall Prevention Additional Instructions / Restrictions: DISCHARGE INSTRUCTIONS PLEASE READ *Please take this with you to your next doctors appointment* - You had a downtrend in sodium but indicated that you had decreased your water intake so you he would not have to ask her to go to the bathroom, suspect this in combination with your Lasix and spironolactone may have caused slight dehydration - Would recommend holding Lasix and spironolactone for 2 days and repeating BMP to assess sodium - If no improvement or any further downtrend could consider workup with urine studies and serum osmole's -Your hydralazine has been increased to 50mg three times daily -Please follow-up with neurology upon discharge, please call Dr. Kelsey's office upon discharge to schedule an appointment for your tremors (ph [phone]) -Please call your primary care provider's office upon discharge to schedule a hospital follow up within 1 week. -For any concerning signs or symptoms please call 911 or proceed to the nearest emergency department Discharge Orders/Prescriptions Prescriptions: New hydralazine 50 mg Tablet 50 mg PO TID Qty: 0 0RF Continued aspirin [Adult Low Dose Aspirin] 81 mg tablet,delayed release (DR/EC) 81 mg PO QDAY Qty: 90 3RF rosuvastatin 10 mg tablet 10 mg PO DAILY coenzyme Q10 [Co Q-10] 100 mg capsule 100 mg PO DAILY sucralfate 100 mg/mL suspension 10 ml PO TID PRN (Reason: digestion) Patient Comments: TAKE 10 ML BY MOUTH 4 TIMES DAILY levothyroxine 50 mcg capsule 50 mcg PO QDAY omeprazole 20 mg capsule,delayed release(DR/EC) 20 mg PO QDAY paroxetine HCl 40 mg tablet 40 mg PO QDAY cyclosporine [Restasis] 0.05 % dropperette 1 drp EACH EYE Q12H albuterol sulfate [ProAir HFA] 90 mcg/actuation HFA aerosol inhaler 2 puff inhalation Q6H PRN (Reason: shortness of breath or wheezing) Qty: 6.7 0RF lorazepam 0.5 MG tablet 0.5 mg PO BID PRN PRN (Reason: Anxiety) Qty: 6 0RF vitamin B complex [Balanced B-50] Tablet 1 tab PO DAILY fluticasone propionate 110 mcg/actuation HFA aerosol inhaler 1 inh inhalation Q12H meloxicam 15 mg tablet 15 mg PO DAILY azelastine 0.05 % drops 1 drp ophthalmic (eye) BID PRN prednisone 10 mg tablet 10 mg PO DAILY diltiazem HCl 240 mg capsule,extended release 24hr 240 mg PO QHS Qty: 90 3RF amiodarone 200 mg tablet 200 mg PO DAILY Qty: 90 3RF losartan 100 mg tablet 100 mg PO DAILY Qty: 90 3RF Changed gabapentin 100 mg capsule 300 mg PO QHS Qty: 12 0RF Patient Comments: per pt to start taking 300mg tonight per pcp instruction. Held spironolactone 25 mg tablet 25 mg PO DAILY Qty: 30 11RF Hold Instructions: Resume on 12/06/24. furosemide 20 mg tablet 20 mg PO QDAY Hold Instructions: Resume on 12/06/24. Discontinued hydralazine 50 mg tablet 50 mg PO BID Qty: 180 3RF Referrals / Follow Up: Michael Puga DO [Primary Care Provider] - Adama Kelsey MD [Non-Staff -Ordering Privileges] - Disposition Disposition (needs filled in before D/C Order can be placed): Inpatient Rehab Unit/Facility Charges/Coding Visit Charges Inpatient E&M: 48000 Disch Hosp >30min
== END 2024-12-03 15:48 ==
LOC: ED 21:47 → PCU 21:56
PROVIDERS: Family Medicine; Admitting Provider Internal Medicine; Emergency Provider Emergency Medicine; PCP Student in an Organized Health Care Education/Training Program; Visit Provider Internal Medicine
DX: I16.0 Hypertensive urgency (principal); I27.20 Pulmonary hypertension, unspecified; I48.0 Paroxysmal atrial fibrillation; E66.813 Obesity, class 3; Z68.41 Body mass index [BMI] 40.0-44.9, adult; R25.1 Tremor, unspecified; M54.50 Low back pain, unspecified; Z79.52 Long term (current) use of systemic steroids; R26.2 Difficulty in walking, not elsewhere classified; E78.5 Hyperlipidemia, unspecified; Z79.899 Other long term (current) drug therapy; K21.9 Gastro-esophageal reflux disease without esophagitis; I10 Essential (primary) hypertension; G62.9 Polyneuropathy, unspecified; Z95.0 Presence of cardiac pacemaker; Z79.890 Hormone replacement therapy; G47.33 Obstructive sleep apnea (adult) (pediatric); F41.8 Other specified anxiety disorders; E88.810 Metabolic syndrome; Z79.82 Long term (current) use of aspirin; M19.90 Unspecified osteoarthritis, unspecified site
CPT/HCPCS: 36415; 70450; 80048; 80053; 80061; 80307; 81001; 82077; 82607; 82746; 83036; 83690; 83735; 84100; 84443; 85025; 85027; 93306; 94640; 94668; 96361; 96372; 96374; 97116; 97162; 97166; 97530; 97535; 99221; 99285; A4216; G0378

== ENCOUNTER 2024-12-03 16:09 | Inpatient (IN) | payer MEDICARE, OTHER, SELFPAY ==
--- OUTSIDE RECORDS SUMMARY | 2024-12-03 16:18 | XMS RPT_ITS | CCD ---
Author Organization [facility] Care Team Providers Care Line Assembler Aircraft Name Role Phone GLYNN Harris, Lisa Ennis Unavailable Unavailable GLYNN Harris Sue M Unavailable Unavailable Shalini Montanez Unavailable Shalini Montanez Unavailable GLYNN Harris, Lisa Ennis Unavailable Unavailable Delisa Juárez RN Unavailable Unavailable Michael Puga Unavailable Victorino, Kat Unavailable Unavailable Bernie Baarjas Unavailable Unavailabl e Michael Puga DO Primary [...] Dr. Michael Puga DO Primary Care Provider Dr. Gallo Hickey MD Attending Provider Edelmira SZYMANSKI, Dr. Holder Referring [...] Taina SZYMANSKI, Dr. Herman Attending Provider Mick HOUSE DIRECTOR.STEREOPTIC PROJECTION TOPOGRAPHER, Isela Radu Unavailable Edd VELASCO, Dr. Rodriguez Primary Care Provider Anabel Alexander Attending Provider Anabel Alexander Referring Provider Edelmira SZYMANSKI, Dr. Holder Attending Provider PUGAMICHAEL L Primary Care Unavailable ARLENE SCHWARZ Referring Unavailable PUGA, MICHAEL L Primary Care Unavailable ARLENE SCHWARZ Referring Unavailable PUGA, MICHAEL L Primary Care Unavailable JANGEETA PENA Referring Unavailab le PUGA, MICHAEL L Primary Care Unavailable JANGEETA PENA Referring Unavailab le PUGA, MICHAEL L Primary Care Unavailable JANASGEETA Referring Unavailab le PUAG, MICHAEL L Primary Care Unavailable JANGEETA PENADIPHU Referring Unavailab le PUGA, MICHAEL L Primary Care Unavailable JANAS, GEETA TEJADA Referring Unavailab le PUGA, MICHAEL L Primary Care Unavailable JANGEETA PENADICT Referring Unavailab le JANASGEETADIPHU Referring Unavailab le PUGA, MICAHEL L Primary Care Unavailable JANAS, GEETA TEJADA Referring Unavailab le PUGA, MICHAEL L Primary Care Unavailable PUGA, MICHAEL L Primary Care Unavailable JANJEAN, GEETA TEJADA Referring Unavailab le JANAS, GEETA TEJADA Referring Unavailab le PUGA, MICHAEL L Primary Care Unavailable JANAS, GEETA STOCKCT Referring Unavailab le PUGA, MICHAEL L Primary Care Unavailable PUGA, MICHAEL L Primary Care Unavailable JANJEAN, GEETA TEJADA Referring Unavailab le PUGA, MICHAEL L Primary Care Unavailable JANJEAN, GEETA STOCKCT Referring Unavailab le JANAS, GEETA STOCKCT Referring Unavailab le PUGA, MICHAEL L Primary Care Unavailable PUGA, MICHAEL L Primary Care Unavailable JANJEAN, GEETA TEJADA Referring Unavailab le PUGA, MICHAEL L Primary Care Unavailable JANJEAN, GEETA TEJADA Referring Unavailab le JANAS, GEETA TEJADA Referring Unavailab le PUGA, MICHAEL L Primary Care Unavailable PUGA, MICHAEL L Primary Care Unavailable ARLENE SCHWARZ Referring Unavailable PUGA, MICHAEL L Primary Care Unavailable PJ BLEDSOE Attending Unavailable ARLENE SCHWARZ Referring Unavailable SHOSHANAGEETA Referring Unavailab le PUGA, MICHAEL L Primary Care Unavailable PUGA, MICHAEL L Primary Care Unavailable KEY PORTILLO Referring Unavailabl e PUGA, MICHAEL L Primary Care Unavailable GEETA CADET Referring Unavailab le Puga Dr. Michael VELASCO Primary Care Provider [phone] Anabel Alexander Attending Provider Anabel Alexander Referring Provider Dr. Michael Puga DO Referring Provider Dr. Michael Puga DO Primary Care Provider Anabel Alexander Attending Provider Anabel Alexander Referring Provider RAYMUNDO DE LEÓN Referring Unavailable PUGA, MICHAEL [...] Unavailable PUGA, MICHAEL L Primary Care Unavailable Puga Dr. Michael VELASCO Primary Care Provider Edelmira SZYMANSKI, Dr. Holder Attending Provider Edelmira SZYMANSKI, Dr. Holder Referring Provider Dr. Virgil Tyler DO Emergency Provider [phone] Davis DO, Dr. Titus Admit Provider Unavail able Davis DO, Dr. Titus Attending Provider Unav ailable Edelmira, Gallo Attending Unavailable Puga, Michael Primary Care Unavailable Puga, Michael Primary Care Unavailable Puga, Michael Attending Unavailable Puga, Michael Referring Unavailable Edelmira, [place] Attending Unavailable Edelmira, [place] Referring Unavailable Puga, Michael Primary Care Unavailable Edelmira, [place] Attending Unavailable Edelmira, Gallo Referring Unavailable Puga, Michael Primary Care Unavailable Anabel Alexander Referring Unavail able Anabel Alexander Attending Unavail able Puga, Michael Primary Care Unavailable Anabel Alexander Attending Unavail able Anabel Alexander Referring Unavail able Owen Alcala V Consulting Unavailable Puga, Michael Primary Care Unavailable Puga, Michael Referring Unavailable Puga, Michael Attending Unavailable Puga, Michael Primary Care Unavailable White, Susan L Admitting Unavailable White, Susan L Consulting Unavailable Jonny Vicente Attending Unavailable Puga, Michael Primary Care Unavailable Anabel Alexander Referring Unavail able Virgil Her Attending Unavailable Puga, Michael Primary Care Unavailable Anabel Alexander Attending Unavail able Puga, Michael Primary Care Unavailable Puga, Michael Referring Unavailable Jonny Vicente Attending Unavailable Tacho Davis Consulting Unavailable Puga, Michael Primary Care Unavailable de Sacha, Tacho Admitting Unavailable Jonny Vicente Consulting Unavailable Waleska Phillips Attending Unavailable Waleska Phillips Consulting Unavailable Edelmira, Gallo Attending Unavailable Edelmira, Gallo Referring Unavailable Puga, Michael Primary Care Unavailable Anabel Alexander Attending Unavail able Anabel Alexander Referring Unavail able Puga, Michael Primary Care Unavailable Anabel Alexander Attending Unavail able Anabel Alexander Referring Unavail able Puga, Michael Primary Care Unavailable Anabel Alexander Referring Unavail able Anabel Alexander Attending Unavail able Puga, Michael Primary Care Unavailable Key Portillo Attending Unavailabl e Puga, Michael Primary Care Unavailable Tacho Davis Attending Unavailable White, Susan L Admitting Unavailable White, Susan L Attending Unavailable White, Susan L Consulting Unavailable Puga, Michael Primary Care Unavailable Jonny Vicente Attending Unavailable Jonny Vicente Consulting Unavailable Edelmira, [place] Referring Unavailable Puga, Michael Attending Unavailable Puga, Michael Primary Care Unavailable Anabel Alexander Attending Unavail able Puga, Michael Referring Unavailable Puga, Michael Primary Care Unavailable Puga, Michael Primary Care Unavailable Puga, Michael Attending Unavailable Puga, Michael Referring Unavailable Edelmira, Gallo Attending Unavailable Puga, Michael Primary Care Unavailable Edelmira, [place] Referring Unavailable Edelmira, [place] Attending Unavailable Puga, Mcihael Primary Care Unavailable Edelmira, Gallo Attending Unavailable Edelmira, [place] Referring Unavailable Puga, Michael Primary Care Unavailable Anabel Alexander Attending Unavail able Puga, Michael Primary Care Unavailable Puga, Michael Referring Unavailable Edelmira, [place] Attending Unavailable Edelmira, Gallo Referring Unavailable Puga, Michael Primary Care Unavailable Edelmira, Gallo Attending Unavailable Edelmira, [place] Referring Unavailable Puga, Michael Primary Care Unavailable Edelmira, Gallo Attending Unavailable Puga, Michael Primary Care Unavailable Anabel Alexander Referring Unavail able Russel Baum Attending Unavailable Puga, Michael Primary Care Unavailable Puga, Michael Primary Care Unavailable Kristal Watkins NP Attending Unavailable Edelmira, [place] Attending Unavailable Puga, Michael Primary Care Unavailable Anabel Alexander Attending Unavail able Anabel Alexander Referring Unavail able Puga, Michael Primary Care Unavailable Anabel Alexander Attending Unavail able Anabel Alexander Referring Unavail able Puga, Michael Primary Care Unavailable Dr. Tacho Davis DO Other Provider Unavail able Alan SZYMANSKI, Dr. Galeano Attending Provider Jules SZYMANSKI, Dr. Jonny Salazar Other Provider Jules SZYMANSKI, Dr. Jonny Salazar Attending Provider Alan SZYMANSKI, Dr. Galeano Other Provider [phone] Allergies Allergy Classification Reported Allergen(s) Allergy Type Date of Onset Reaction(s) Facility Acetaminophen / HYDROcodone (1 source) Acetaminophen / HYDROcodone Drug Allergy 5 Intolerance [facility] HMG-CoA Reductase Inhibitors (statins) (1 source) Pravastatin Drug Allergy 6 Other: See Comments [facility] Work Phone: Macrolides (antibiotic) (1 source) Azithromycin Drug Allergy 8 Intolerance [facility] Opioid Agonists (1 source) Meperidine Drug Allergy 1 Vomiting [facility] Penicillins (antibiotic) (1 source) Penicillin G Drug Allergy 1 [facility] Quinolones (antibiotic) (1 source) Ciprofloxacin Drug Allergy 9 Rash [facility] Sulfonamides (antibiotic) (1 source) Sulfonamides (Antibiotic) Drug Allergy 1 [facility] (6 sources) acetaminophen / HYDROcodone drug allergy 1 Nausea & vomiting [facility] Work Phone: [phone] (6 sources) Adrenergic Beta-Antagonists drug allergy 5 Fatigue [facility] Work Phone: [phone] (17 sources) lisinopril; Translations: [lisinopril] drug allergy 6 cough [facility] Work Phone: [phone] (7 sources) meperidine drug allergy 1 Nausea & Vomiting, Unknown [facility] Work Phone: [phone] (7 sources) penicillin drug allergy 1 Hives, Unknown [facility] Work Phone: [phone] (6 sources) Sulfonamides (Antibiotic) drug allergy 1 Hives [facility] Work Phone: (1 source) guaiFENesin / HYDROcodone Drug Allergy Unknown [facility] (1 source) Sulfonamides (Antibiotic) Unknown [facility] (20 sources) Acetaminophen / HYDROcodone; Translations: [HYDROCODONE-ACET AMINOPHEN] Drug Allergy 5 Intolerance [facility] Work Phone: (20 sources) Azithromycin; Translations: [AZITHROMYCIN] Drug Allergy 8 Intolerance [facility] Work Phone: (20 sources) Meperidine; Translations: [MEPERIDINE (PF)] Drug Allergy 1 Vomiting [facility] (20 sources) Morphinan opioid; Translations: [OPIOIDS - MORPHINE ANALOGUES] Propensity to adverse reactions to drug 1 Intolerance [facility] (20 sources) Penicillin G; Translations: [PENICILLIN G] Drug Allergy 1 [facility] (20 sources) Pethidine analog; Translations: [OPIOIDS-MEPERIDI NE AND RELATED] Propensity to adverse reactions 1 [facility] (20 sources) Pravastatin; Translations: [PRAVASTATIN SODIUM] Drug Allergy 6 Other: See Comments [facility] Work Phone: (20 sources) Sulfonamides (Antibiotic); Translations: [SULFA (SULFONAMIDE ANTIBIOTICS)] Propensity to adverse reactions 1 [facility] (20 sources) Ciprofloxacin; Translations: [CIPROFLOXACIN] Drug Allergy 9 Rash [facility] (10 sources) HYDROcodone Drug Allergy 2 Other [facility] (10 sources) Meperidine Drug Allergy 2 Vomiting [facility] (11 sources) Penicillins; Translations: [Penicillins] Allergy to substance 2 [facility] (10 sources) Pravastatin Drug Allergy 2 Other [facility] Comment on above: LEG CRAMPS (11 sources) Beta-Blockers (Beta-Adrenergic Bloc; Translations: [Beta-Blockers (Beta-Adrenergic Bloc] Propensity to adverse reactions 2 Other [facility] Comment on above: FATIGUE (9 sources) Morphine Drug Allergy 4 Other [facility] Comment on above: sees things (9 sources) Sulfonamides (Antibiotic) Allergy to substance 4 Hives [facility] (1 source) Ciprofloxacin Drug Allergy 5 [facility] (1 source) HYDROcodone Drug Allergy 5 [facility] (1 source) Meperidine Drug Allergy 5 [facility] (1 source) Morphine Drug Allergy 5 [facility] (1 source) Pravastatin Drug Allergy 5 [facility] (1 source) Sulfonamides (Antibiotic) Drug allergy (disorder) 5 [facility] Medications Current Medications Medication Drug Class(es) Dates Sig (Normalized) Sig (Original) [id number] 200 actuat albuterol 0.09 mg/actuat metered dose [...] in structed every 4 hours as needed. aspirin 81 mg delayed release oral tablet (20 sources) Platelet Aggregation Inhibitor, Nonsteroidal Anti-inflammatory Drug Start: 12-27-2018 Aspirin (Adult Low Dose Aspirin) 81 mg tablet,delayed release (DR/EC) Active 81 mg PO daily 90 3 December 27, 2018 12:00am [facility] Start: 07-16-2016 End: 05-05-2017 take 1 [...] 05, 2017 1:00am December 04, 2018 1:03pm HEART Start: 05-24-2013 ASPIRIN 81 MG TABS ASPIRIN [id number] Anabel Horne PA-C Start: 05-24-2013 ASPIRIN 81 MG TABS ASPIRIN [id number] Anabel Horne PA-C Start: 04-07-2011 take 1 tablet by arpan th once daily ASPIRIN 325 MG TABS One tablet by mouth daily ASPIRIN [id number] Delisa Juárez RN Comment on above: Take [...] 2-5 Quantity: 6 Refills: 0 Ordered: 21-Dec-2020 Bernie Barajas Start: 21-Dec-2020 End: 25-Dec-2020 Generic Substitution Allowed [...] 12/24/2022 Active Cyclosporine (Restasis) 0.05 % dropperette (9 sources) Start: 09-27-2023 Cyclosporine ( Restasis) 0.05 % dropperette Active 1 NMA EACH EYE Q12H September 27, 2023 12:00am eye health Start: 09-27-2023 Cyclosporine ( Restasis) 0.05 % dropperette Active 1 NMA EACH EYE Q12H September 27, 2023 12:00am doxycycline hyclate 100 mg oral tablet (3 sources) Tetracycline-class Drug Start: 12-01-2023 End: 12-15-2023 take 1 tablet by mouth twice daily doxycycline (VIBRA-TABS) 100 mg tablet Indications: Rhonchi , Acute bronchitis, unspecified organism Take 1 tablet by mouth two times a day for 14 days. 28 tablet 0 12/01/2023 12/15/2023 Active fluticasone / salmeterol (19 sources) Corticosteroid, beta2-Adrenergic Agonist Start: 06-21-2024 take 1 puff(s) by mouth twice daily fluticasone-salme terol (ADVAIR DISKUS) 250-50 mcg/dose inhaler Indications: Obstructive lung disease (HCC) Inhale 1 Puff as instructed two times a day. RINSE AND GARGLE MOUTH WITH WATER AFTER EACH USE. 3 Each 3 06/21/2024 Active Fluticasone Propionate 110 mcg/actuation HFA aerosol inhaler (9 sources) Start: 04-30-2024 Fluticasone Propionate 110 mcg/actuation HFA aerosol inhaler Active 1 NMA INHALATION Q12H April 30, 2024 1:00am gabapentin 100 mg oral capsule (20 sources) Anti-epileptic Agent Start: 12-03-2024 take 3 capsules by mouth at bedtime Gabapentin 100 mg capsule Active 300 mg PO AT BEDTIME 12 December 03, 2024 1:56pm neuropathy Start: 11-13-2024 End: 12-14-2024 take 1 capsule by mouth once daily Gabapentin 100 mg capsule Discontinued 100 mg PO DAILY November 29, 2024 12:00am December 03, 2024 1:57pm neuropathy Start: 05-06-2017 End: 06-10-2017 take 1 capsule by mouth three times daily at mealtime Gabapentin 300 MG capsule Discontinued 300 mg PO 3 TIMES DAILY WITH MEALS May 06, 2017 1:00am June 10, 2017 12:16pm PAIN Start: 05-25-2014 End: 05-28-2015 take 1 tablet by mouth three times daily GABAPENTIN 300 MG CAPS One tablet by mouth three times daily GABAPENTIN [id number] Gallo Hickey MD hydrALAZINE hydrochloride 50 mg oral tablet (20 sources) Arteriolar Vasodilator Start: 12-03-2024 take 1 tablet by mouth three times daily Hydralazine 50 mg Tablet Active 50 mg PO THREE TIMES A DAY 0 December 03, 2024 12:00am Start: 06-01-2024 End: 12-03-2024 take 1 tablet by mouth twice daily Hydralazine 50 mg tablet Discontinued 50 mg PO TWICE A DAY 180 3 June 01 2025 3:01pm December 03, 2024 2:10pm Start: 06-01-2024 End: 06-01-2024 take 1 tablet [...] 08/30/2024 Active levothyroxine sodium 0.05 mg oral capsule (20 sources) l-Thyroxi ne Start: 01-25-2024 take [...] mouth twice daily as needed for anxiety Lorazepam 0.5 MG tablet Active 0.5 mg PO TWICE DAILY NEEDED as needed for Anxiety 6 0 December 03, 2024 1:56pm Comment on above: Take 1 tablet by arpan twice daily as needed (anxiety attack). meloxicam 15 mg oral tablet (20 sources) Nonsteroidal Anti-inflammatory Drug Start: 4 End: 5 take 1 tablet by mouth once daily Meloxicam 15 mg tablet Active 15 mg PO DAILY April 30, 2024 1:00am Start: 08-31-2018 End: 12-04-2018 Meloxicam 15 mg [...] on above: Take 1 capsule by mo [facility] twice daily for 5 days. omeprazole 20 [...] 10:47pm Start: 10-29-2020 take 1 capsule by [facility] once daily omeprazole (PRILOSEC) 20 mg capsule [...] CPDR One tablet by mouth daily OMEPRAZOLE [id number] Gallo Hickey MD Start: 07-19-2013 End: 05-28-2015 take 1 tablet by mouth once daily PRILOSEC 20 MG CPDR One tablet by mouth daily OMEPRAZOLE [id number] Anabel Horne PA-C Comment on above: Take 1 capsule by [facility] once daily. PARoxetine hydrochloride 40 mg oral tablet (20 sources) Serotonin Reuptake Inhibitor Start: End: take 1 tablet by mouth once daily Paroxetine Hcl 40 mg tablet Active 40 mg PO daily November 02, 2024 12:00am Start: 08-17-2024 End: 08-17-2024 take 1 tablet [...] 10 mL injection (DEFINITY) (14 sources) Start: 06-04-2022 End: 09-04-2023 perflutren lipid microspheres 1.3 mL in NaCl (PF) 0.9% 10 mL injection (DEFINITY) predniSONE 10 mg oral tablet (19 sources) Start: 11-29-2024 take 1 tablet by mouth once daily Prednisone 10 mg tablet Active 10 mg PO DAILY November 29, 2024 12:00am Start: 11-02-2024 End: 11-02-2024 take 1 tablet [...] days Quantity: 10 Refills: 0 Ordered: 21-Dec-2020 Bernie Barajas Start: 21-Dec-2020 End: 25-Dec-2020 Generic Substitution Allowed [...] of this medication.Take with food or milk. rOPINIRole 1 mg oral tablet (20 sources) Nonergot Dopamine Agonist Start: End: take 1 tablet by mouth once daily at bedtime rOPINIRole (REQUIP) 1 mg tablet Indications: Restless leg Take 1 tablet by mouth daily at bedtime. 30 tablet 3 08/30/2024 Active rosuvastatin calcium 10 mg oral tablet (20 sources) HMG-CoA Reductase Inhibitor Start: End: take 1 tablet by mouth once daily Rosuvastatin 10 mg tablet Active 10 mg PO DAILY January 23, 2020 12:00am cholesterol Comment on above: Take 1 tablet by arpan th daily at bedtime. 125 ml sodium chloride 9 mg/ml prefilled syringe (14 sources) Start: 023 End: sodium chloride 0.9 % (flush) 10 mL (BD POSIFLUSH) spironolactone 25 mg oral tablet (20 sources) Aldosterone Antagonist Start: take 1 tablet by mouth once daily Spironolactone 25 mg tablet Active 25 mg PO DAILY 01 04January 25, 2024 12:00am On Hold: Resume on 12/06/24. sucralfate 100 mg/ml oral suspension (20 sources) Aluminum Complex Start: take 10 mL by mouth four times [...] times daily. ubidecarenone 100 mg oral capsule (10 sources) Start: 01-23-2020 Coenzyme Q10 (Co Q-10) 100 mg capsule Active 100 mg PO DAILY January 23, 2020 12:00am supplement ubidecarenone (COQ-10 ORAL) (20 sources) ubidecarenone (C OQ-10 ORAL) Take by mouth. Active ubidecarenone (C OQ-10 ORAL) Take by mouth. 0 Active Comment on above: Take by mouth. Vitamin B Complex (Balanced B-50) tablet (9 sources) Start: 04-30-2024 Vitamin B Comp chai [...] to 6 hours as needed HYDROCODONE-ACETAMI NOPHEN [id number] Gallo Hickey MD amiodarone hydrochloride 200 mg oral tablet (20 sources) Antiarrhythmic Start: 01-23-2020 End: 07-20-2024 take 1 tablet by mouth once daily Amiodarone 200 mg tablet Discontinued 200 mg PO DAILY 90 0 March 14, 2024 9:54am July 20, 2024 1:41pm heart Start: 07-14-2011 End: 07-14-2011 take 1 tablet by mouth once daily AMIODARONE HCL 200 MG TABS One tablet by mouth daily AMIODARONE HCL [id number] Delisa Juárez RN Start: 04-07-2011 AMIODARONE HCL 200 MG TABS 1 tablet twice a day for two weeks then 1 a day AMIODARONE HCL [id number] Gallo Hickey MD Comment on above: Take 200 mg by mouth once daily. amLODIPine 10 mg oral tablet (18 sources) Dihydropyridine Calcium Channel Nicol[place] Start: End: take 1 tablet by mouth once daily NORVASC 10 MG TABS One tablet by mouth daily AMLODIPINE BESYLATE [id number] Gallo Hickey MD apixaban 5 mg oral tablet (10 sources) Factor Xa Inhibitor Start: 019 End: take 1 tablet by mouth twice daily Apixaban 5 MG tablet Discontinued 5 mg PO TWICE A DAY 60 0 December 04, 2018 12:00am December 27, 2018 3:49pm cholecalciferol 0.05 mg oral capsule (20 sources) Vitamin D Start: 022 End: take 1 capsule by mouth once daily [...] Comment on above: Take 1 capsule by [facility] once daily. citalopram 20 mg oral tablet (6 sources) Serotonin Reuptake Inhibitor Start: 09-23-19 11 take 1 tablet by mouth once daily CELEXA 20 MG TABS One tablet by mouth daily CITALOPRAM HYDROBROMIDE [id number] Irma Strong clindamycin 300 mg oral capsule (12 sources) Lincosamide Antibacterial Start: 09-23-19 11 End: 05-18-19 13 CLINDAMYCIN HCL 300 MG CAPS 2 tablets by mouth 30-60 mins prior to procedure CLINDAMYCIN HCL [id number] Irma Strong 24 hr dilTIAZem hydrochloride 240 mg extended release oral capsule (20 sources) Calcium Channel [place] Start: 08-11-19 14 End: 05-15-19 25 take 1 capsule by mouth every twenty-four hours at bedtime Diltiazem Hcl 240 mg capsule,extended release 24hr Discontinued 240 mg PO AT BEDTIME 90 3 May 09, 2024 12:45pm May 15, 2024 12:23pm heart Start: 08-10-2013 take 1 capsule by [facility] once daily diltiazem CD (CARDIZEM CD) 240 mg 24 hr capsule Indications: Essential hypertension Take 1 capsule by mouth once daily. 0 10/25/2015 Active Start: 08-10-2013 DILT-XR 240 MG [id number] DILTIAZEM HCL [id number] Kristel Garcia RN Start: 08-10-2013 [facility] 240 MG [id number] One tablet by mouth daily DILTIAZEM HCL [id number] Gallo Hickey MD Start: 07-19-2013 take 1 tablet by arpan twice daily DILT-XR 120 MG [id number] One tablet by mouth twice daily DILTIAZEM HCL [id number] Anabel Horne PA-C Start: 07-19-2013 take 1 tablet by arpan twice daily DILT-XR 120 MG [id number] One tablet by mouth twice daily DILTIAZEM HCL [id number] Anabel Horne PA-C Start: 05-05-2011 take 1 tablet by arpan once daily DILT-XR 120 MG [id number] One tablet by mouth daily DILTIAZEM HCL [id number] Gallo Hickey MD Start: 05-05-2011 take 1 tablet by [facility] once daily DILT-XR 120 MG [id number] One tablet by mouth daily DILTIAZEM HCL [id number] Gallo Hickey MD Comment on above: Take 1 capsule by [facility] once daily. enalapril maleate 20 mg oral tablet (12 sources) Angiotensin Converting Enzyme Inhibitor Start: 1 End: 2 ENALAPRIL MALEATE 20 MG TABS 1/2 tablet daily ENALAPRIL MALEATE [id number] Gallo Hickey MD escitalopram 20 mg oral tablet (20 sources) Serotonin Reuptake Inhibitor Start: 4 End: 4 take 1 tablet by mouth once daily Escitalopram Oxalate 20 MG tablet Discontinued 20 mg PO DAILY May 13, 2016 1:00am August 27, 2017 7:58am MENTAL HEALTH Start: 05-24-2013 take 1 tablet by [facility] once daily ESCITALOPRAM OXALATE 10 MG TABS One tablet by mouth daily ESCITALOPRAM OXALATE [id number] JAMAL KatzC Comment on above: Take 1 tablet by [facility] once daily. ferrous sulfate 325 mg oral [...] tablet (20 sources) Antiarrhythmic Start: 2 End: 0 take 1 tablet by mouth twice daily Flecainide 150 mg tablet Discontinued 150 mg PO TWICE A DAY 180 3 August 07, 2019 9:20am January 23, 2020 3:14pm HEART Start: 07-14-2011 take 1 tablet by arpan th twice daily FLECAINIDE ACETATE 100 MG TABS One tablet by mouth twice daily FLECAINIDE ACETATE [id number] Gallo Hickey MD 120 actuat fluticasone propionate 0.11 mg/actuat metered dose inhaler (20 sources) Corticosteroid Start: 03-01-2024 End: 06-21-2024 take 1 puff(s) by mouth twice daily fluticasone (FLOVENT) 110 mcg/actuation inhaler Indications: Obstructive lung disease (HCC) Inhale 1 Puff as instructed two times a day. Shake well before use. Rinse mouth after use. 1 Each 1 03/01/2024 06/21/2024 Discontinued furosemide 20 mg oral tablet (20 sources) Loop Diuretic Start: 06-26-2024 End: 07-06-2024 take 2 tablets by mouth once daily Furosemide 20 mg tablet Discontinued 40 mg PO daily July 06, 2024 12:30pm July 06, 2024 12:30pm Start: 05-12-2024 End: 02-13-2025 take 1 tablet by mouth once daily Furosemide 20 mg tablet Active 20 mg PO daily July 06, 2024 12:30pm On Hold: Resume on 12/06/24. Start: 05-02-2024 End: 06-01-2024 take 1 tablet by mouth once daily Furosemide (Lasix) 40 mg tablet Discontinued 40 mg PO DAILY 30 0 May 02, 2024 1:00am June 01, 2024 2:22pm Start: 09-22-2010 End: 10-27-2011 take 1 tablet by mouth once daily LASIX 40 MG TABS One tablet by mouth daily FUROSEMIDE [id number] Irma Strong 12 hr guaiFENesin 600 mg extended release [...] mg tablet Discontinued 25 mg PO DAILY 01 04June 13, 2021 1:00am November 25, 2021 2:54pm Comment on above: Take 2 capsules by m [facility] once daily. Take 1 capsule by mo [facility] once daily. ibuprofen 800 mg oral tablet (18 sources) Nonsteroidal Anti-inflammatory Drug Start: 1 End: 6 take 1 tablet by mouth every four hours as needed IBUPROFEN 800 MG TABS 1 tablet by mouth Q4H as needed IBUPROFEN [id number] Anabel Horne PA-C lisinopril 10 mg oral tablet (6 sources) Angiotensin Converting Enzyme Inhibitor Start: 5 take 1 tablet by mouth once daily LISINOPRIL 10 MG TABS One tablet by mouth daily LISINOPRIL [id number] Anabel Horne PA-C losartan potassium 100 mg oral tablet (20 sources) Angiotensin 2 Receptor Nicolle Start: 6 End: take 1 tablet by mouth once daily Losartan 100 mg tablet Discontinued 100 mg PO DAILY 90 3 July 31, 2024 8:43am September 11, 2024 10:11am blood pressure Start: 04-04-2015 take 1 tablet by arpan th once daily LOSARTAN POTASSIUM 50 MG TABS One tablet by mouth daily LOSARTAN POTASSIUM [id number] Anabel Horne PA-C Start: 04-04-2015 End: 06-26-2015 take 1 tablet by mouth twice daily LOSARTAN POTASSIUM 50 MG TABS One tablet by mouth twice daily LOSARTAN POTASSIUM [id number] Kristel Garcia RN Comment on above: Take 1 tablet [...] with breakfast. metroNIDAZOLE 500 mg oral tablet (10 sources) Nitroimidazole Antimicrobial Start: End: take 1 [...] For insomnia MULTIPLE VITAMIN (10 sources) Start: 013 take 1 tablet by mouth once daily MULTIVITAMINS TABS One tablet by mouth daily MULTIPLE VITAMIN [id number] Gallo Hickey MD Start: 05-18-2012 End: 05-24-2013 take 1 tablet by mouth once daily MULTIVITAMINS TABS One tablet by mouth daily MULTIPLE VITAMIN [id number] Anabel Horne PA-C MULTIPLE VITAMIN (2 sources) Start: 05-18-2012 take 1 tablet by mouth once daily MULTIVITAMINS TABS One tablet by mouth daily MULTIPLE VITAMIN [id number] Gallo Hickey MD Start: 05-18-2012 End: 05-24-2013 take 1 tablet by mouth once daily MULTIVITAMINS TABS One tablet by mouth daily MULTIPLE VITAMIN [id number] Anabel Horne PA-C nystatin 100 unt/mg topical powder (10 sources) Polyene Antifungal Start: 05-08-2017 End: 06-10-2017 [...] by mouth daily OMEGA-3 FATTY ACIDS CPDR [id number] rIma Strong Start: 09-22-2010 End: 05-18-2012 take 1 tablet by mouth once daily OMEGA 3 CPDR One tablet by mouth daily OMEGA-3 FATTY ACIDS CPDR [id number] Gallo Hickey MD OMEGA-3 FATTY ACIDS CPDR (2 sources) Start: 09-22-2010 take 1 tablet by mouth once daily OMEGA 3 CPDR One tablet by mouth daily OMEGA-3 FATTY ACIDS CPDR [id number] Irma Strong Start: 09-22-2010 End: 05-18-2012 take 1 tablet by mouth once daily OMEGA 3 CPDR One tablet by mouth daily OMEGA-3 FATTY ACIDS CPDR [id number] Gallo Hickey MD polyethylene glycol 3350 20148 mg powder for oral solution (10 sources) Osmotic Laxative Start: 05-08-2017 End: 06-10-2017 take 17 g by mouth once daily Polyethylene Glycol 3350 17 GM packet Discontinued 17 g PO DAILY 30 0 May 08, 2017 1:00am June 10, 2017 12:17pm Constipation Constipation, unspecified topiramate 25 mg oral tablet (11 sources) Start: 09-21-2022 End: 09-27-2023 take 1 tablet by mouth once daily Topiramate 25 mg tablet Discontinued 25 mg PO DAILY December 03, 2022 12:00am September 27, 2023 10:48pm Comment on above: Take 1 tablet by arpan th daily with breakfast. traZODone hydrochloride 100 mg oral tablet (20 sources) Serotonin Reuptake Inhibitor Start: 01-25-2024 End: 04-30-2024 take 1 tablet by mouth once daily [...] mg, One tablet by mouth daily CYANOCOBALAMIN [id number] Delisa Juárez RN take 1 tablet by arpan th once daily cyanocobalamin (VITAMIN B-12) 1,000 mcg tab Take 1,000 mcg by mouth once daily. Active B COMPLEX VITAMINS (20 sources) Start: 09-22-2010 take 1 tablet by mouth once daily VITAMIN B COMPLEX TABS One tablet by mouth daily B COMPLEX VITAMINS [id number] Irma Strong End: 03-13-2024 vitamin B complex [...] 12-07-2012 Chronic Comment on above: 01/29/2011; Gen Martinez e 06/09/21 Congestive heart failure; nonhypertensive (20 sources) Congestive heart failure; Translations: [Heart failure, unspecified] Onset: 5 05-11-2024 Chronic Disorders of lipid metabolism (20 sources) Hyperlipidemia; Translations: [Hyperlipidemia, unspecified] Onset: 1 Resolved: 6 09-22-2010 Chronic E Codes: Fall (10 sources) Fall on same level from slipping, [...] Translations: [Essential hypertension] Onset: 1 09-22-2010 Chronic Fluid and electrolyte disorders (20 sources) Hypokalemia; Translations: [Hypokalemia] Onset: 4 05-24-2013 Episodic Genitourinary symptoms and ill-defined conditions (20 sources) Mixed urinary incontinence; Translations: [Mixed incontinence] Onset: 7 11-10-2016 Chronic Genitourinary symptoms and ill-defined conditions (1 source) Increased frequency of urination; Translations: [Frequency of micturition] Episodic Hypertension with complications and secondary hypertension (9 sources) Hypertensive emergency; Translations: [Hypertensive emergency] Onset: 5 11-29-2024 Chronic Malaise and fatigue (20 sources) Fatigue; [...] 0 07-12-2019 Chronic Open wounds of extremities (9 sources) Tear of skin; Translations: [Laceration without foreign body of unspecified elbow, initial encounter] 01-03-2022 Episodic Other aftercare (2 sources) Post-discharge follow-up; Translations: [Encounter for follow-up examination after completed treatment for conditions other than malignant neoplasm] 10-14-2023 Episodic Other aftercare (9 sources) Long-term current use of diuretic; Translations: [Encounter for therapeutic drug level monitoring] 06-26-2024 Episodic Other aftercare (4 sources) Drug therapy finding; Translations: [Other shelter (current) drug therapy] 06-01-2024 Episodic Other aftercare (12 sources) Long-term current use of amiodarone; Translations: [Other lobsterman (current) drug therapy] 06-01-2024 Episodic Other circulatory disease (20 sources) Disorder of carotid artery; Translations: [Disorder of arteries and arterioles, unspecified] Onset: 6 05-28-2015 Chronic Other circulatory disease (1 source) Disorder of arteries and arterioles, unspecified; 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)] Onset: 3 Chronic Other circulatory disease (12 sources) Carotid bruit; Translations: [Other specified symptoms and signs involving the circulatory and respiratory systems] 06-01-2024 Episodic Other connective tissue disease (10 sources) Recurrent falls ; Translations: [Repeated falls] [...] injuries and conditions due to external causes (10 sources) Closed injury of head; Translations: [Unspecified injury of head, initial encounter] 12-25-2018 Episodic Other injuries and conditions due to external causes (9 sources) Injury of head; Translations: [Unspecified injury of head, initial encounter] 01-03-2022 Episodic Other lower respiratory disease (18 sources) Dyspnea; Translations: [Shortness of breath] Onset: 1 09-22-2010 Episodic Comment on above: SOB Other lower respiratory disease (20 sources) Dyspnea on exertion; Translations: [Shortness of breath] Onset: 3 Episodic Other lower respiratory disease (11 sources) Hypoxia; Translations: [Hypoxemia] 04-30-2024 Episodic Other [...] Onset: 5 Chronic Other nervous system disorders (2 sources) Unable to walk; Translations: [Difficulty in walking, not elsewhere classified] 11-29-2024 Chronic Other nervous system disorders (20 sources) Impairment of balance; Translations: [Other abnormalities of gait and mobility] Onset: 5 11-15-2023 Episodic Other nervous system disorders (20 sources) Abnormal gait; Translations: [Unspecified abnormalities of gait and mobility] Onset: 5 03-01-2024 Episodic Other nervous system disorders (4 sources) Tremor; Translations: [Tremor, unspecified] 11-29-2024 Episodic Other nervous system disorders (1 source) Tremor, unspecified; Translations: [Tremor, unspecified] Onset: 5 Episodic Other non-traumatic joint disorders (20 sources) [...] Chronic Other nutritional; endocrine; and metabolic disorders (9 sources) Obesity; Translations: [Obesity, unspecified] 11-25-2021 Chronic Other nutritional; endocrine; and metabolic disorders (4 sources) Body mass index 40+ - severely obese; Translations: [Morbid (severe) obesity due to excess calories] 11-29-2024 Chronic Other nutritional; endocrine; and metabolic disorders (1 source) Morbid (severe) obesity due to excess calories; Translations: [Morbid (severe) obesity due to excess calories] Onset: 5 Chronic Other nutritional; endocrine; and metabolic disorders (1 source) Body mass index (BMI) 40.0-44.9, adult; Translations: [Body mass index [BMI] 40.0-44.9, adult] Onset: 5 Chronic Other screening for suspected conditions (not mental disorders or infectious disease) (16 sources) Electrocardiogram abnormal; Translations: [Abnormal electrocardiogram [ECG] [EKG]] Onset: 1 09-22-2010 Episodic Other upper respiratory disease (20 sources) Allergic rhinitis; Translations: [Allergic rhinitis, unspecified] 01-08-2005 Chronic Pneumonia (except that caused by tuberculosis or sexually transmitted disease) (10 sources) Community acquired pneumonia; Translations: [Pneumonia, unspecified [...] Onset: 5 10-14-2023 Chronic Sprains and strains (9 sources) Strain of neck muscle; Translations: [Strain [...] [Impaired fasting glucose] Onset: 11-10-2016 11-10-2016 Episodic Gastritis and duodenitis (20 sources) Gastritis; [...] 05-11-2024 Episodic Other aftercare (1 source) Other shelter (current) drug therapy; Translations: [Other lobsterman (current) [...] Onset: 05-31-2024 Episodic Other lower respiratory disease (2 sources) [...] Test Name Value Interpretation Reference Range Facility Anion gap in Serum or Plasma Ordered By: Waleska Phillips on 12-03-2024 Anion gap [Moles/Vol] 11 mmol/L 5-15 [facility] BUN/creatinine ratioOrdered By: Waleska Phillips on 12-03-2024 Urea nitrogen/Creatinine [Mass ratio] 30.7 mg/mg High 10-20 [facility] Carbon dioxide, total [Moles /volume] in Central venous bloodOrdered By: Waleska Phillips on 12-03-2024 CO2 [Moles/Vol] 23.4 mmol/L 21.0-32.0 [facility] Chloride assayOrdered By: Nida Phillips on 12-03-2024 Chloride [Moles/Vol] 94 mmol/L Low 98-108 [facility] Erythrocyte distribution wid th ratioOrdered By: Waleska Phillips on 12-03-2024 Erythrocyte distribution width (RBC) [Ratio] 14.7 % High 11.6-14.6 [facility] Erythrocyte distribution wid th standard deviationOrdered By: Waleska Phillips on 12-03-2024 Erythrocyte distribution width (RBC) [Ratio] 47.8 fl High 35.1-43.9 [facility] Glomerular filtration rate ( GFR) estimation/1.73 sq m using serum, plasma, or whole bOrdered By: Waleska Phillips on 12-03-2024 GFR/1.73 sq M.predicted among non-blacks MDRD (S/P/Bld) [Vol rate/Area] 55 mL/min/{1.73_m2} Low >60 [facility] Comment on above: mL/min/1.73m2 CKD-EP I Creatinine Equation (2020) Hematocrit Auto (Bld) [Volum e fraction]Ordered By: Waleska Phillips on 12-03-2024 Hematocrit (Bld) [Volume fraction] 31.2 % Low 37-47 [facility] Hemoglobin measurementOrdere d By: Waleska Phillips on 12-03-2024 Hemoglobin (Bld) [Mass/Vol] 10.6 g/dL Low 12.0-15.0 [facility] MCV (mean corpuscular volume ) determinationOrdered By: Waleska Phillips on 12-03-2024 MCV (RBC) [Entitic vol] 89.4 fL 81-99 [facility] Mean corpuscular hemoglobin (MCH) determinationOrdered By: Waelska Phillips on 12-03-2024 MCH (RBC) [Entitic mass] 30.4 pg 27.0-32.0 [facility] Mean corpuscular hemoglobin concentration (MCHC) determinationOrdered By: Waleska Phillips on 12-03-2024 MCHC (RBC) [Mass/Vol] 34.0 g/dL 32-36 [facility] Mean platelet volume determi nationOrdered By: Waleska Phillips on 12-03-2024 Platelet mean volume (Bld) [Entitic vol] 10.3 fL 6.2-12.0 [facility] Platelet countOrdered By: Nida Phillips on 12-03-2024 Platelets (Bld) [#/Vol] 202 10*3/uL 150-450 [facility] Potassium measurement (mass/ volume)Ordered By: Waleska Phillips on 12-03-2024 Potassium (Unsp spec) [Mass/Vol] 4.7 mmol/L 3.3-5.1 [facility] RBC Auto (Bld) [#/Vol]Ordere d By: Waleska Phillips on 12-03-2024 RBC (Bld) [#/Vol] 3.49 10*6/uL Low 4.2-5.4 [facility] Serum creatinine measurement (mass/volume)Ordered By: Waleska Phillips on 12-03-2024 Creatinine [Mass/Vol] 1.02 mg/dL 0.70-1.20 [facility] Serum glucose measurement (m ass/volume)Ordered By: Waleska Phillips on 12-03-2024 Glucose [Mass/Vol] 111 mg/dL High 70-99 [facility] Serum or plasma calcium julee urement (mass/volume)Ordered By: Waleska Phillips on 12-03-2024 Calcium [Mass/Vol] 8.7 mg/dL 7.6-11.0 [facility] Serum or plasma urea nitroge n measurement (mass/volume)Ordered By: Waleska Phillips on 12-03-2024 Urea nitrogen [Mass/Vol] 31 mg/dL High 4-19 [facility] Sodium levelOrdered By: Andi Phillips on 12-03-2024 Sodium [Moles/Vol] 127 mmol/L Low 133-145 [facility] White blood cell (WBC) count Ordered By: Waleska Phillips on 12-03-2024 WBC (Bld) [#/Vol] 9.8 10*3/uL 4.4-11.0 [facility] Absolute lymphocyte countOrd ered By: Waleska Phillips on 12-02-2024 Lymphocytes Auto (Unsp spec) [#/Vol] 1.09 10*3/uL 0.83-4.51 [facility] Absolute neutrophil countOrd ered By: Waleska Phillips on 12-02-2024 Neutrophils (Bld) [#/Vol] 7.1 10*3/uL 2.0-7.7 [facility] Automated lymphocyte count a s percentage of total leukocytesOrdered By: Waleska Phillips on 12-02-2024 Lymphocytes/100 WBC Auto (Unsp spec) 11.2 % Low 19-41 [facility] Basophil percentageOrdered B y: Waleska Phillips on 12-02-2024 Basophils/100 WBC (Bld) 0.6 % 0-1 [facility] Eosinophil percentageOrdered By: Waleska Phillips on 12-02-2024 Eosinophils/100 WBC (Bld) 3.1 % 0-5 [facility] Immature granulocytes/100 WB C Auto (Bld)Ordered By: Waleska Phillips on 12-02-2024 Immature granulocytes/100 WBC (Bld) 0.700 % 0.0-0.9 [facility] Comment on above: IG% - Immature Granu locytes (promyelocytes, myelocytes and metamyelocytes) > 1% indicates that a LEFT SHIFT is Present. Monocyte percentageOrdered B y: Waleska Phillips on 12-02-2024 Monocytes/100 WBC (Bld) 11.7 % High 0-10 [facility] Neutrophil percentageOrdered By: Waleska Phillips on 12-02-2024 Neutrophils/100 WBC (Bld) 72.7 % High 47-70 [facility] Nucleated red blood cell per centageOrdered By: Waleska Phillips on 12-02-2024 Nucleated RBC/100 WBC (Bld) [Ratio] 0 % 0-5 [facility] Basic Metabolic Profile (BMP )on 12-01-2024 BUN/CRE 26.4 RATIO High 10-20 [facility] Comment on above: Performed By: #### L 500.2500, L100.0100 ####[facility] [address] [place], [address] Calcium [Mass/Vol] 8.4 mg/dL Normal 7.6-11.0 [facility] Comment on above: Performed By: #### L 500.2500, L100.0100 ####[facility] [address] [place], [address] Chloride [Moles/Vol] 96 mmol/L Low 98-108 [facility] Comment on above: Performed By: #### L 500.2500, L100.0100 ####[facility] [address] [place], [address] CO2 [Moles/Vol] 26.3 mmol/L Normal 21.0-32.0 [facility] Comment on above: Performed By: #### L 500.2500, L100.0100 ####[facility] [address] [place], [address] Creatinine [Mass/Vol] 1.23 mg/dL High 0.70-1.20 [facility] Comment on above: Performed By: #### L 500.2500, L100.0100 ####[facility] [address] [place], [address] ECRCL 41.95 ml/min Low 50-250 [facility] Comment on above: Performed By: #### L 500.2500, L100.0100 ####[facility] [address] [place], [address] GAP 9 Normal 5-15 [facility] Comment on above: Performed By: #### L 500.2500, L100.0100 ####[facility] [address] [place], [address] GFR/1.73 sq M.predicted among non-blacks MDRD (S/P/Bld) [Vol rate/Area] 44 mL/min/{1.73_m2} Low >60 [facility] Comment on above: Result Comment: mL/m in/1.73m2 CKD-EPI Creatinine Equation (2020) Performed By: #### L 500.2500, L100.0100 ####[facility] [address] [place], [address] Glucose [Mass/Vol] 110 mg/dL High 70-99 [facility] Comment on above: Performed By: #### L 500.2500, L100.0100 ####[facility] [address] [place], [address] Potassium [Moles/Vol] 4.7 mmol/L Normal 3.3-5.1 [facility] Comment on above: Performed By: #### L 500.2500, L100.0100 ####[facility] [address] [place], [address] Sodium [Moles/Vol] 131 mmol/L Low 133-145 [facility] Comment on above: Performed By: #### L 500.2500, L100.0100 ####[facility] [address] [place], [address] Urea nitrogen [Mass/Vol] 33 mg/dL High 4-19 [facility] Comment on above: Performed By: #### L 500.2500, L100.0100 ####[facility] [address] [place], [address] CBC W/Diff, Automatedon 08-0 Absolute Lymph 1.16 X10 3/uL Normal 0.83-4.51 [facility] Comment on above: Performed By: #### L 500.2500, L100.0100 ####[facility] [address] [place], [address] Absolute Neut 6.3 X10 3/uL Normal 2.0-7.7 [facility] Comment on above: Performed By: #### L 500.2500, L100.0100 ####[facility] [address] [place], [address] Basophils/100 WBC (Bld) 0.6 % Normal 0-1 [facility] Comment on above: Performed By: #### L 500.2500, L100.0100 ####[facility] [address] [place], [address] Eosinophils/100 WBC (Bld) 2.9 % Normal 0-5 [facility] Comment on above: Performed By: #### L 500.2500, L100.0100 ####[facility] [address] [place], [address] Erythrocyte distribution width (RBC) [Ratio] 14.8 % High 11.6-14.6 [facility] Comment on above: Performed By: #### L 500.2500, L100.0100 ####[facility] [address] [place], [address] Hematocrit (Bld) [Volume fraction] 31.7 % Low 37-47 [facility] Comment on above: Performed By: #### L 500.2500, L100.0100 ####[facility] [address] [place], [address] Hemoglobin (Bld) [Mass/Vol] 10.5 g/dL Low 12.0-15.0 [facility] Comment on above: Performed By: #### L 500.2500, L100.0100 ####[facility] [address] [place], [address] IG% 0.300 Normal 0.0-0.9 [facility] Comment on above: Result Comment: IG% - Immature Granulocytes (promyelocytes, myelocytes andmetamyelocytes) > 1% indicates that a LEFT SHIFT is Present. Performed By: #### L 500.2500, L100.0100 ####[facility] [address] [place], [address] Lymphocytes/100 WBC (Bld) 13.0 % Low 19-41 [facility] Comment on above: Performed By: #### L 500.2500, L100.0100 ####[facility] [address] [place], [address] MCH (RBC) [Entitic mass] 29.9 pg Normal 27.0-32.0 [facility] Comment on above: Performed By: #### L 500.2500, L100.0100 ####[facility] [address] [place], [address] MCHC (RBC) [Mass/Vol] 33.1 g/dL Normal 32-36 [facility] Comment on above: Performed By: #### L 500.2500, L100.0100 ####[facility] [address] [place], [address] MCV (RBC) [Entitic vol] 90.3 fL Normal 81-99 [facility] Comment on above: Performed By: #### L 500.2500, L100.0100 ####[facility] [address] [place], [address] Monocytes/100 WBC (Bld) 12.3 % High 0-10 [facility] Comment on above: Performed By: #### L 500.2500, L100.0100 ####[facility] [address] [place], [address] Neutrophils/100 WBC (Bld) 70.9 % High 47-70 [facility] Comment on above: Performed By: #### L 500.2500, L100.0100 ####[facility] [address] [place], [address] Nucleated RBC (Bld) [#/Vol] 0 10*3/uL Normal 0-5 [facility] Comment on above: Performed By: #### L 500.2500, L100.0100 ####[facility] [address] [place], [address] Platelet mean volume (Bld) [Entitic vol] 10.1 fL Normal 6.2-12.0 [facility] Comment on above: Performed By: #### L 500.2500, L100.0100 ####[facility] [address] [place], [address] Platelets (Bld) [#/Vol] 196 10*3/uL Normal 150-450 [facility] Comment on above: Performed By: #### L 500.2500, L100.0100 ####[facility] [address] [place], [address] RBC (Bld) [#/Vol] 3.51 10*6/uL Low 4.2-5.4 [facility] Comment on above: Performed By: #### L 500.2500, L100.0100 ####[facility] [address] [place], [address] RDW SD 48.8 fl High 35.1-43.9 [facility] Comment on above: Performed By: #### L 500.2500, L100.0100 ####[facility] [address] [place], [address] WBC (Bld) [#/Vol] 8.9 10*3/uL Normal 4.4-11.0 [facility] Comment on above: Performed By: #### L 500.2500, L100.0100 ####[facility] [address] [place], [address] MR/CON.PCM.NEon 12-01-2024 MR/CON.PCM.NE Normal [facility] Amphetamine detection with 1 000 ng/mL as cutoffOrdered By: Tacho Goncalves on 11-30-2024 Amphetamines Screen method >1000 ng/mL Ql (U) Negative < 200 ng/mL [facility] Bilirubin, totalOrdered By: aTcho Goncalves on 11-30-2024 Bilirubin [Mass/Vol] 0.50 mg/dL 0.00-1.30 [facility] Brain/Head without Contrasto n 11-30-2024 Brain/Head without Contrast Normal [facility] CBC W/Diff, Automatedon 11-02 Absolute Lymph 0.89 X10 3/uL Normal 0.83-4.51 [facility] Comment on above: Performed By: #### L 501.2300, L500.4100, L100.0100, L500.4050 ####[facility] [address] [place], [address] Absolute Neut 6.9 X10 3/uL Normal 2.0-7.7 [facility] Comment on above: Performed By: #### L 501.2300, L500.4100, L100.0100, L500.4050 ####[facility] [address] [place], [address] Basophils/100 WBC (Bld) 0.5 % Normal 0-1 [facility] Comment on above: Performed By: #### L 501.2300, L500.4100, L100.0100, L500.4050 ####[facility] [address] [place], [address] Eosinophils/100 WBC (Bld) 2.8 % Normal 0-5 [facility] Comment on above: Performed By: #### L 501.2300, L500.4100, L100.0100, L500.4050 ####[facility] [address] [place], [address] Erythrocyte distribution width (RBC) [Ratio] 14.6 % Normal 11.6-14.6 [facility] Comment on above: Performed By: #### L 501.2300, L500.4100, L100.0100, L500.4050 ####[facility] [facility] [address] [place], [address] Hematocrit (Bld) [Volume fraction] 33.8 % Low 37-47 [facility] Comment on above: Performed By: #### L 501.2300, L500.4100, L100.0100, L500.4050 ####[facility] [address] [place], [address] Hemoglobin (Bld) [Mass/Vol] 11.2 g/dL Low 12.0-15.0 [facility] Comment on above: Performed By: #### L 501.2300, L500.4100, L100.0100, L500.4050 ####[facility] [address] [place], [address] IG% 0.700 Normal 0.0-0.9 [facility] Comment on above: Result Comment: IG% - Immature Granulocytes (promyelocytes, myelocytes andmetamyelocytes) > 1% indicates that a LEFT SHIFT is Present. Performed By: #### L 501.2300, L500.4100, L100.0100, L500.4050 ####[facility] [address] [place], [address] Lymphocytes/100 WBC (Bld) 9.5 % Low 19-41 [facility] Comment on above: Performed By: #### L 501.2300, L500.4100, L100.0100, L500.4050 ####[facility] [address] [place], [address] MCH (RBC) [Entitic mass] 30.1 pg Normal 27.0-32.0 [facility] Comment on above: Performed By: #### L 501.2300, L500.4100, L100.0100, L500.4050 ####[facility] [address] [place], [address] MCHC (RBC) [Mass/Vol] 33.1 g/dL Normal 32-36 [facility] Comment on above: Performed By: #### L 501.2300, L500.4100, L100.0100, L500.4050 ####[facility] [address] [place], [address] MCV (RBC) [Entitic vol] 90.9 fL Normal 81-99 [facility] Comment on above: Performed By: #### L 501.2300, L500.4100, L100.0100, L500.4050 ####[facility] [address] [place], [address] Monocytes/100 WBC (Bld) 13.0 % High 0-10 [facility] Comment on above: Performed By: #### L 501.2300, L500.4100, L100.0100, L500.4050 ####[facility] [address] [place], [address] Neutrophils/100 WBC (Bld) 73.5 % High 47-70 [facility] Comment on above: Performed By: #### L 501.2300, L500.4100, L100.0100, L500.4050 ####[facility] [address] [place], [address] Nucleated RBC (Bld) [#/Vol] 0 10*3/uL Normal 0-5 [facility] Comment on above: Performed By: #### L 501.2300, L500.4100, L100.0100, L500.4050 ####[facility] [address] [place], [address] Platelet mean volume (Bld) [Entitic vol] 9.7 fL Normal 6.2-12.0 [facility] Comment on above: Performed By: #### L 501.2300, L500.4100, L100.0100, L500.4050 ####[facility] [address] [place], [address] Platelets (Bld) [#/Vol] 212 10*3/uL Normal 150-450 [facility] Comment on above: Performed By: #### L 501.2300, L500.4100, L100.0100, L500.4050 ####[facility] [address] [place], [address] RBC (Bld) [#/Vol] 3.72 10*6/uL Low 4.2-5.4 [facility] Comment on above: Performed By: #### L 501.2300, L500.4100, L100.0100, L500.4050 ####[facility] [address] [place], [address] RDW SD 48.4 fl High 35.1-43.9 [facility] Comment on above: Performed By: #### L 501.2300, L500.4100, L100.0100, L500.4050 ####[facility] [address] [place], [address] WBC (Bld) [#/Vol] 9.4 10*3/uL Normal 4.4-11.0 [facility] Comment on above: Performed By: #### L 501.2300, L500.4100, L100.0100, L500.4050 ####[facility] [address] [place], [address] Calculated very low density lipoprotein (VLDL) cholesterol measurementOrdered By: Tacho Goncalves on 11-30-2024 Calculated very low density lipoprotein (VLDL) cholesterol measurement 18 mg/dL 5-40 [facility] Comprehensive Metabolic Prof ilon 11-30-2024 Albumin [Mass/Vol] 3.6 g/dL Normal 3.4-4.8 [facility] Comment on above: Performed By: #### L 501.2300, L500.4100, L100.0100, L500.4050 ####[facility] [address] [place], [address] Albumin/Globulin [Mass ratio] 1.6 {ratio} Normal 0.9-2.4 [facility] Comment on above: Performed By: #### L 501.2300, L500.4100, L100.0100, L500.4050 ####[facility] [address] [place], [address] ALK PHOS 58 U/L Normal 35-104 [facility] Comment on above: Performed By: #### L 501.2300, L500.4100, L100.0100, L500.4050 ####[facility] [address] [place], [address] ALT [Catalytic activity/Vol] 36 U/L High <=34 [facility] Comment on above: Performed By: #### L 501.2300, L500.4100, L100.0100, L500.4050 ####[facility] [address] [place], [address] AST [Catalytic activity/Vol] 25 U/L Normal <=31 [facility] Comment on above: Performed By: #### L 501.2300, L500.4100, L100.0100, L500.4050 ####[facility] [address] [place], [address] Bilirubin [Mass/Vol] 0.50 mg/dL Normal 0.00-1.30 [facility] Comment on above: Performed By: #### L 501.2300, L500.4100, L100.0100, L500.4050 ####[facility] [address] [place], [address] BUN/CRE 27.8 RATIO High 10-20 [facility] Comment on above: Performed By: #### L 501.2300, L500.4100, L100.0100, L500.4050 ####[facility] [address] [place], [address] Calcium [Mass/Vol] 8.9 mg/dL Normal 7.6-11.0 [facility] Comment on above: Performed By: #### L 501.2300, L500.4100, L100.0100, L500.4050 ####[facility] [address] [place], [address] Chloride [Moles/Vol] 99 mmol/L Normal 98-108 [facility] Comment on above: Performed By: #### L 501.2300, L500.4100, L100.0100, L500.4050 ####[facility] [address] [place], [address] CO2 [Moles/Vol] 26.1 mmol/L Normal 21.0-32.0 [facility] Comment on above: Performed By: #### L 501.2300, L500.4100, L100.0100, L500.4050 ####[facility] [address] [place], [address] Creatinine [Mass/Vol] 1.25 mg/dL High 0.70-1.20 [facility] Comment on above: Performed By: #### L 501.2300, L500.4100, L100.0100, L500.4050 ####[facility] [address] [place], [address] ECRCL 41.49 ml/min Low 50-250 [facility] Comment on above: Performed By: #### L 501.2300, L500.4100, L100.0100, L500.4050 ####[facility] [address] [place], [address] GAP 10 Normal 5-15 [facility] Comment on above: Performed By: #### L 501.2300, L500.4100, L100.0100, L500.4050 ####[facility] [address] [place], [address] GFR/1.73 sq M.predicted among non-blacks MDRD (S/P/Bld) [Vol rate/Area] 43 mL/min/{1.73_m2} Low >60 [facility] Comment on above: Result Comment: mL/m in/1.73m2 CKD-EPI Creatinine Equation (2020) Performed By: #### L 501.2300, L500.4100, L100.0100, L500.4050 ####[facility] [address] [place], [address] Globulin (S) [Mass/Vol] 2.3 g/dL Normal 2.2-4.2 [facility] Comment on above: Performed By: #### L 501.2300, L500.4100, L100.0100, L500.4050 ####[facility] [address] [place], [address] Glucose [Mass/Vol] 111 mg/dL High 70-99 [facility] Comment on above: Performed By: #### L 501.2300, L500.4100, L100.0100, L500.4050 ####[facility] [address] [place], [address] Potassium [Moles/Vol] 4.7 mmol/L Normal 3.3-5.1 [facility] Comment on above: Performed By: #### L 501.2300, L500.4100, L100.0100, L500.4050 ####[facility] [address] [place], [address] Sodium [Moles/Vol] 136 mmol/L Normal 133-145 [facility] Comment on above: Performed By: #### L 501.2300, L500.4100, L100.0100, L500.4050 ####[facility] [address] [place], [address] T PROT 5.9 g/dL Normal 5.9-8.4 [facility] Comment on above: Performed By: #### L 501.2300, L500.4100, L100.0100, L500.4050 ####[facility] [address] [place], [address] Urea nitrogen [Mass/Vol] 35 mg/dL High 4-19 [facility] Comment on above: Performed By: #### L 501.2300, L500.4100, L100.0100, L500.4050 ####[facility] [address] [place], [address] Echocardiogram study reportO rdered By: Gallo Hickey on 11-30-2024 Study report [facility] [address] [place] [address] Echo Complete 11/30/24 1044 MR#: [id number] Acct: [id number] Name: MICHAEL MEIER Rep #:[id number] : 1940 84 From: Gallo Souza Attending Dr: Dr. Jonny Vicente MD Status: ADM CORBY Ordering Dr: Tacho Davis DO Date: 11/29/24 Location: U Sex: F C Admitted: 11/29/24 Reason For Study Reason For Study: TIAS/CVA Procedure This was a 2D Doppler, Color Flow transthoracic echocardiogram. Exam performed in department. Left Ventricle Normal LV size. Moderate concentric left ventricular hypertrophy. Left ventricular systolic function is normal. The left ventricular ejection fraction is 60 %. No regional wall motion abnormalities noted. Right Ventricle Normal RV size. ICD or pacer leads identified within the right ventricle. Normalsystolic function. Atria The left atrium is mildly enlarged. Normal right atrium. Mitral Valve Normal mitral valve. Tricuspid Valve Normal tricuspid valve. Moderate (2+) tricuspid valve insufficiency. Pulmonary artery systolic pressure is 65 mmHg. Moderate pulmonary hypertension. Aortic Valve Trisinus/trileaflet aortic valve. Pulmonic Valve Normal pulmonic valve. Great Vessels Normal aortic root. The pulmonary artery is normal size. Inferior vena cava collapse with sniff. Pericardium/Pleural No pericardial effusion. MMode/2D Measurements & Calculations LVIDd: 4.7 cm IVSd: 1.5 cm LVOT diam: 2.0 cm LVIDs: 2.7 cm LVPWd: 1.3 cm LVOT area: 3.2 cm2 FS: 40.9 % Ao root diam: 3.2 cm LAV(MOD-bp): 75.7 ml LVAd ap4: 29.3 cm2 LAV(MOD-bp) Indexed: 35.7 ml/m2 LVLd ap4: 8.0 cm LAV(MOD-sp2): 75.4 ml EDV(MOD-sp4): 91.3 ml LAV(MOD-sp4): 74.9 ml EDV(sp4-el): 91.1 ml LVAs ap4: 12.2 cm2 LVLs ap4: 5.6 cm ESV(MOD-sp4): 24.0 ml ESV(sp4-el): 22.4 ml EF(MOD-sp4): 73.7 % EF(sp4-el): 75.4 % SV(MOD-sp4): 67.3 ml SV(sp4-el): 68.7 ml LA A4 area: 23.9 cm2 SI(MOD-sp4): 31.7 ml/m2 LA dimension(2D): 3.9 cm RA A4 area: 11.0 cm2 Time Measurements MV dec time: 0.21 sec Doppler Measurements & Calculations MV E max jeff: 93.6 cm/sec Lat Peak E' Jeff: 12.7 cm/sec Med Peak E' Jeff: 8.0 cm/sec MV A max jeff: 57.3 cm/sec E/E' lat: 7.4 E/E' med: 11.8 MV E/A: 1.6 MV V2 max: 119.9 cm/sec Ao V2 max: 165.7 cm/sec MV max P.8 mmHg MV dec slope: 442.7 cm/sec2 Ao max P.0 mmHg MV V2 mean: 48.9 cm/sec Ao V2 mean: 115.2 cm/sec MV mean P.2 mmHg Ao mean P.1 mmHg MV V2 VTI: 31.4 cm Ao V2 VTI: 37.3 cm AV (velocity ratio): 0.87 MVA(VTI): 3.3 cm2 REBA(I,D): 2.8 cm2 REBA(V,D): 2.8 cm2 LV V1 max: 144.0 cm/sec SV(LVOT): 103.8 ml PA V2 max: 149.7 cm/sec LV V1 max P.3 mmHg PA V2 mean: 100.1 cm/sec LV V1 mean P.6 mmHg LV V1 mean: 100.1 cm/sec LV V1 VTI: 32.6 cm TR max jeff: 390.4 cm/sec TR max P.0 mmHg ECHO/Echo Complete Interpretation Summary Normal LV size. Left ventricular systolic function is normal. Moderate concentric left ventricular hypertrophy. The left ventricular ejection fraction is 60 %. Pulmonary artery systolic pressure is 65 mmHg. Moderate pulmonary hypertension. Ordering Physician: Tacho Davis Referring Physician: Michael Puga, Performed By: Elzbieta Hampton and Student 11/30/241654 Date _ Gallo Hickey MD CC: Dr. Tacho Davis DO; Dr. Michael Puga DO; Dr. Jonny Vicente MD ~ Date Dictated: 11/30/24 1044 Date Transcribed: 11/30/241654 [employer] Driver: Signed [facility] Work Phone: Folate [Mass/volume] in Seru m or PlasmaOrdered By: Tacho Goncalves on 11-30-2024 Folate [Mass/Vol] 26.00 ng/mL 4.60-34.80 [facility] Folates,Serum (Folic Acid)on 11-30-2024 FOLATES,SERUM 26.00 ng/mL Normal 4.60-34.80 [facility] Comment on above: Order Comment: N Performed By: #### L 506.0200 ####[facility] [address] [place], [address] LDL calc ser/plasOrdered By: Tacho Goncalves on 11-30-2024 Cholesterol in LDL [Mass/Vol] 53 mg/dL [facility] Comment on above: Yevsjximpc=775-306 m g/dL & Higher Ambt=070 mg/dL or greaterFriedwald Equation for LDL-C Laboratory - Chemistry and C hemistry - challengeOrdered By: Tacho Goncalves on 11-30-2024 AST [Catalytic activity/Vol] 25 U/L <32 [facility] Lipid Profileon 11-30-2024 CHOL:HDL 1.91 Normal [facility] Comment on above: Performed By: #### L 501.2300, L500.4100, L100.0100, L500.4050 ####[facility] [address] [place], [place], [address] Cholesterol [Mass/Vol] 148 mg/dL Normal <=200 [facility] Comment on above: Result Comment: Chol esterol level, Desirable <200 mg/dLBorderline high cholesterol 200-239 mg/dLHigh cholesterol >=240 mg/dLRecommendations of the NCEP Adult Treatment Panel for thefollowing risk-cutoff thresholds for the [place] Americanpulation. Performed By: #### L 501.2300, L500.4100, L100.0100, L500.4050 ####[facility] [address] [place], [address] Cholesterol in HDL [Mass/Vol] 78 mg/dL Normal [facility] Comment on above: Result Comment: Nathalie onal Cholesterol Education Program (NCEP) guidelines:<40 mg/dL: Low HDL-cholesterol (major risk factor for CHD)>= 60 mg/dL: High HDL-cholesterol (negative risk factor forCHD)HDL-cholesterol is affected by a number of factors, e.g.smoking, exercise, hormones, sex and age. Performed By: #### L 501.2300, L500.4100, L100.0100, L500.4050 ####[facility] [address] [place], [address] Cholesterol in LDL [Mass/Vol] 53 mg/dL Normal [facility] Comment on above: Result Comment: Bord ilzskh=336-525 mg/dL Higher Anot=816 mg/dL or greaterFriedwald Equation for LDL-C Performed By: #### L 501.2300, L500.4100, L100.0100, L500.4050 ####[facility] [address] [place], [address] Cholesterol in VLDL [Mass/Vol] 18 mg/dL Normal 5-40 [facility] Comment on above: Performed By: #### L 501.2300, L500.4100, L100.0100, L500.4050 ####[facility] [address] [place], [address] Triglyceride [Mass/Vol] 88 mg/dL Normal [facility] Comment on above: Result Comment: The drugs N-Acetylcysteine and Metamizole may falselydepress this assay.Normal range: <150 mg/dLBorderline High: 150-199 mg/dLHigh: 200-499 mg/dLVery High: >500 mg/dL Performed By: #### L 501.2300, L500.4100, L100.0100, L500.4050 ####[facility] [address] [place], [place], [address] No Panel InformationOrdered By: Tacho Goncalves on 11-30-2024 Urine Buprenorphine Qualitative Negative < 200 ng/mL [facility] Urine Oxycodone Screen Negative < 100 ng/mL [facility] Phosphoruson 11-30-2024 Phosphate [Mass/Vol] 3.8 mg/dL Normal 2.7-4.5 [facility] Comment on above: Performed By: #### L 501.2300, L500.4100, L100.0100, L500.4050 ####[facility] [address] [place], [place], [address] Quantitative urine opiates m easurementOrdered By: Tacho Goncalves on 11-30-2024 Opiates Ql (U) Negative < 300 ng/mL [facility] Screening total cholesterol/ high density lipoprotein (HDL) cholesterol ratioOrdered By: Tacho Goncalves on 11-30-2024 Cholesterol.total/Chol esterol in HDL [Mass ratio] 1.91 {ratio} [facility] Screening urine fentanyl theresa surementOrdered By: Tacho Goncalves on 11-30-2024 fentaNYL Screen Ql (U) Negative [facility] Serum globulin measurementOr dered By: Tacho Goncalves on 11-30-2024 Globulin (S) [Mass/Vol] 2.3 g/dL 2.2-4.2 [facility] Serum or plasma alanine sprague otransferase (ALT) measurementOrdered By: Tacho Goncalves on 11-30-2024 ALT [Catalytic activity/Vol] 36 U/L High <35 [facility] Serum or plasma albumin julee urement (mass/volume)Ordered By: Tacho Goncalves on 11-30-2024 Albumin [Mass/Vol] 3.6 g/dL 3.4-4.8 [facility] Serum or plasma albumin/glob ulin mass ratioOrdered By: Tacho Goncalves on 11-30-2024 Albumin/Globulin [Mass ratio] 1.6 {ratio} 0.9-2.4 [facility] Serum or plasma alkaline rachel sphatase measurementOrdered By: Tacho Goncalves on 11-30-2024 ALP [Catalytic activity/Vol] 58 U/L 35-104 [facility] Serum or plasma cholesterol in HDL measurement (mass/volume)Ordered By: Tacho Goncalves on 11-30-2024 Cholesterol in HDL [Mass/Vol] 78 mg/dL >40 [facility] Comment on above: National Cholesterol Education Program (NCEP) guidelines:<40 mg/dL: Low HDL-cholesterol (major risk factor for CHD)>= 60 mg/dL: High HDL-cholesterol (negative risk factor for CHD)HDL-cholesterol is affected by a number of factors, e.g. smoking, exercise, hormones, sex and age. Serum or plasma cholesterol measurement (mass/volume)Ordered By: Tacho Goncalves on 11-30-2024 Cholesterol [Mass/Vol] 148 mg/dL <201 [facility] Comment on above: Cholesterol level, D esirable <200 mg/dLBorderline high cholesterol 200-239 mg/dLHigh cholesterol >=240 mg/dLRecommendations of the NCEP Adult Treatment Panel for the following risk-cutoff thresholds for the [place] population. Total proteinOrdered By: Richard Goncalves on 11-30-2024 Protein [Mass/Vol] 5.9 g/dL 5.9-8.4 [facility] Triglycerides measurementOrd ered By: Tacho Goncalves on 11-30-2024 Triglyceride [Mass/Vol] 88 mg/dL <199 [facility] Comment on above: The drugs N-Acetylcy steine and Metamizole may falsely depress this assay. Normal range: <150 mg/dLBorderline High: 150-199 mg/dLHigh: 200-499 mg/dLVery High: >500 mg/dL Urine Drug Screen (VISTA)on 11-30-2024 AMPHETAMINES Negative Normal <1000 ng/mL [facility] Comment on above: Order Comment: NEEDI NG A SAMPLE. HEB 11-30-24UNK Performed By: #### L 501.9985, L501.9520, L501.9100, L501.5200, L505.5000 ####[facility] [address] [place], [place], [address] BARBITIURATES Negative Normal < 200 ng/mL [facility] Comment on above: Order Comment: NEEDI NG A SAMPLE. HEB 11-30-24UNK Performed By: #### L 501.9985, L501.9520, L501.9100, L501.5200, L505.5000 ####[facility] [address] [place], [address] BENZODIAZIPINE Positive Normal < 200 ng/mL [facility] Comment on above: Order Comment: NEEDI NG A SAMPLE. HEB 11-30-24 Result Comment: If c onfirmation testing is needed, a separate order will berequired to send out testing to the reference laboratory. Performed By: #### L 501.9985, L501.9520, L501.9100, L501.5200, L505.5000 ####[facility] [address] [place], [place], [address] BUP Ur Drug Scr Negative Normal < 200 ng/mL [facility] Comment on above: Order Comment: NEEDI NG A SAMPLE. HEB 11-30-24UNK Performed By: #### L 501.9985, L501.9520, L501.9100, L501.5200, L505.5000 ####[facility] [address] [place], [place], [address] COCAINE Negative Normal < 300 ng/mL [facility] Comment on above: Order Comment: NEEDI NG A SAMPLE. HEB 11-30-24UNK Performed By: #### L 501.9985, L501.9520, L501.9100, L501.5200, L505.5000 ####[facility] [address] [place], [address] Fentanyl Negative Normal [facility] Comment on above: Order Comment: NEEDI NG A SAMPLE. HEB 11-30-24UNK Performed By: #### L 501.9985, L501.9520, L501.9100, L501.5200, L505.5000 ####[facility] [address] [place] [address] METHADONE Negative Normal < 300 ng/mL [facility] Comment on above: Order Comment: NEEDI NG A SAMPLE. HEB 11-30-24UNK Performed By: #### L 501.9985, L501.9520, L501.9100, L501.5200, L505.5000 ####[facility] [address] [place] [address] OPIATES Negative Normal < 300 ng/mL [facility] Comment on above: Order Comment: NEEDI NG A SAMPLE. HEB 11-30-24UNK Performed By: #### L 501.9985, L501.9520, L501.9100, L501.5200, L505.5000 ####[facility] [address] [place] [address] OXYCODONE Negative Normal < 100 ng/mL [facility] Comment on above: Order Comment: NEEDI NG A SAMPLE. HEB 11-30-24UNK Performed By: #### L 501.9985, L501.9520, L501.9100, L501.5200, L505.5000 ####[facility] [address] [place] [address] PCP Negative Normal < 25 ng/mL [facility] Comment on above: Order Comment: NEEDI NG A SAMPLE. HEB 11-30-24UNK Performed By: #### L 501.9985, L501.9520, L501.9100, L501.5200, L505.5000 ####[facility] [address] [place], [place], [address] THC Negative Normal < 50 ng/mL [facility] Comment on above: Order Comment: AGUSTIN Spence SAMPLE. HEB 11-30-24UNK Performed By: #### L 501.9985, L501.9520, L501.9100, L501.5200, L505.5000 ####[facility] [address] [place], [place], [id number] Urine benzodiazepine levelOr dered By: Tacho Goncalves on 11-30-2024 Benzodiazepines Ql (U) Positive < 200 ng/mL [facility] Comment on above: If confirmation test ing is needed, a separate order will be required to send out testing to the reference laboratory. Urine cocaine levelOrdered B y: Tacho Goncalves on 11-30-2024 Cocaine Ql (U) Negative < 300 ng/mL [facility] Urine jjjel-4-mafnxreafcqnce abinol (THC) measurementOrdered By: Tacho Goncalves on 11-30-2024 Cannabinoids Screen Ql (U) Negative < 50 ng/mL [facility] Urine phencyclidine (PCP) de tectionOrdered By: Tacho Goncalves on 11-30-2024 Phencyclidine Ql (U) Negative < 25 ng/mL [facility] Vitamin B12on 11-30-2024 Cobalamin (Vitamin B12) [Mass/Vol] 2838 pg/mL High 180-914 [facility] Comment on above: Performed By: #### L 503.0106 ####[facility] [address] [facility] [address] [place], [place], [id number] Absolute lymphocyte countOrd ered By: Virgil Tyler on 11-29-2024 Lymphocytes Auto (Unsp spec) [#/Vol] 1.10 10*3/uL 0.83-4.51 [facility] Absolute neutrophil countOrd ered By: Virgil Tyler on 11-29-2024 Neutrophils (Bld) [#/Vol] 7.0 10*3/uL 2.0-7.7 [facility] Alcohol, Blood (Medical)-Ser umon 11-29-2024 SERUM ETOH < 10.1 Normal <=10.0 [facility] Comment on above: Result Comment: This test is for medical purposes only. The legaldefinition of intoxication varies according to local law. Performed By: #### L 501.9985, L501.9520, L501.9100, L501.5200, L505.5000 ####[facility] [address] [place], [place], [id number] Anion gap in Serum or Plasma Ordered By: Virgil Tyler on 11-29-2024 Anion gap [Moles/Vol] 12 mmol/L 5-15 [facility] Automated lymphocyte count a s percentage of total leukocytesOrdered By: Virgil Tyler on 11-29-2024 Lymphocytes/100 WBC Auto (Unsp spec) 11.5 % Low 19-41 [facility] BUN/creatinine ratioOrdered By: Virgil Tyler on 11-29-2024 Urea nitrogen/Creatinine [Mass ratio] 34.3 mg/mg High 10-20 [facility] Basophil percentageOrdered B y: Virgil Tyler on 11-29-2024 Basophils/100 WBC (Bld) 0.6 % 0-1 [facility] Bilirubin Test strip Ql (U)O rdered By: Virgil Tyler on 11-29-2024 Bilirubin Ql (U) Negative Negative [facility] Bilirubin, totalOrdered By: Virgil Tyler on 11-29-2024 Bilirubin [Mass/Vol] 0.57 mg/dL 0.00-1.30 [facility] Brain/Head without Contrasto n 11-29-2024 Brain/Head without Contrast Normal [facility] CBC W/Diff, Automatedon 11-02 Absolute Lymph 1.10 X10 3/uL Normal 0.83-4.51 [facility] Comment on above: Performed By: #### L 500.4050, L501.9520, L501.2450, L100.0100 ####[facility] [address] [place], [address] Absolute Neut 7.0 X10 3/uL Normal 2.0-7.7 [facility] Comment on above: Performed By: #### L 500.4050, L501.9520, L501.2450, L100.0100 ####[facility] [address] [place], [address] Basophils/100 WBC (Bld) 0.6 % Normal 0-1 [facility] Comment on above: Performed By: #### L 500.4050, L501.9520, L501.2450, L100.0100 ####[facility] [address] [place], [address] Eosinophils/100 WBC (Bld) 2.9 % Normal 0-5 [facility] Comment on above: Performed By: #### L 500.4050, L501.9520, L501.2450, L100.0100 ####[facility] [address] [place], [address] Erythrocyte distribution width (RBC) [Ratio] 14.4 % Normal 11.6-14.6 [facility] Comment on above: Performed By: #### L 500.4050, L501.9520, L501.2450, L100.0100 ####[facility] [address] [place], [address] Hematocrit (Bld) [Volume fraction] 34.5 % Low 37-47 [facility] Comment on above: Performed By: #### L 500.4050, L501.9520, L501.2450, L100.0100 ####[facility] [address] [place], [address] Hemoglobin (Bld) [Mass/Vol] 11.6 g/dL Low 12.0-15.0 [facility] Comment on above: Performed By: #### L 500.4050, L501.9520, L501.2450, L100.0100 ####[facility] [address] [place], [address] IG% 0.500 Normal 0.0-0.9 [facility] Comment on above: Result Comment: IG% - Immature Granulocytes (promyelocytes, myelocytes andmetamyelocytes) > 1% indicates that a LEFT SHIFT is Present. Performed By: #### L 500.4050, L501.9520, L501.2450, L100.0100 ####[facility] [address] [place], [address] Lymphocytes/100 WBC (Bld) 11.5 % Low 19-41 [facility] Comment on above: Performed By: #### L 500.4050, L501.9520, L501.2450, L100.0100 ####[facility] [address] [place], [address] MCH (RBC) [Entitic mass] 30.1 pg Normal 27.0-32.0 [facility] Comment on above: Performed By: #### L 500.4050, L501.9520, L501.2450, L100.0100 ####[facility] [address] [place], [address] MCHC (RBC) [Mass/Vol] 33.6 g/dL Normal 32-36 [facility] Comment on above: Performed By: #### L 500.4050, L501.9520, L501.2450, L100.0100 ####[facility] [address] [place], [address] MCV (RBC) [Entitic vol] 89.4 fL Normal 81-99 [facility] Comment on above: Performed By: #### L 500.4050, L501.9520, L501.2450, L100.0100 ####[facility] [address] [place], [address] Monocytes/100 WBC (Bld) 12.1 % High 0-10 [facility] Comment on above: Performed By: #### L 500.4050, L501.9520, L501.2450, L100.0100 ####[facility] [address] [place], [address] Neutrophils/100 WBC (Bld) 72.4 % High 47-70 [facility] Comment on above: Performed By: #### L 500.4050, L501.9520, L501.2450, L100.0100 ####[facility] [address] [place], [address] Nucleated RBC (Bld) [#/Vol] 0 10*3/uL Normal 0-5 [facility] Comment on above: Performed By: #### L 500.4050, L501.9520, L501.2450, L100.0100 ####[facility] [address] [place], [address] Platelet mean volume (Bld) [Entitic vol] 10.2 fL Normal 6.2-12.0 [facility] Comment on above: Performed By: #### L 500.4050, L501.9520, L501.2450, L100.0100 ####[facility] [address] [place], [address] Platelets (Bld) [#/Vol] 201 10*3/uL Normal 150-450 [facility] Comment on above: Performed By: #### L 500.4050, L501.9520, L501.2450, L100.0100 ####[facility] [address] [place], [address] RBC (Bld) [#/Vol] 3.86 10*6/uL Low 4.2-5.4 [facility] Comment on above: Performed By: #### L 500.4050, L501.9520, L501.2450, L100.0100 ####[facility] [address] [place], [address] RDW SD 46.8 fl High 35.1-43.9 [facility] Comment on above: Performed By: #### L 500.4050, L501.9520, L501.2450, L100.0100 ####[facility] [address] [place], [address] WBC (Bld) [#/Vol] 9.6 10*3/uL Normal 4.4-11.0 [facility] Comment on above: Performed By: #### L 500.4050, L501.9520, L501.2450, L100.0100 ####[facility] [address] [place], [address] Carbon dioxide, total [Moles /volume] in Central venous bloodOrdered By: Virgil Tyler on 11-29-2024 CO2 [Moles/Vol] 22.9 mmol/L 21.0-32.0 [facility] Chloride assayOrdered By: Rj Tyler on 11-29-2024 Chloride [Moles/Vol] 98 mmol/L 98-108 [facility] Comprehensive Metabolic Prof ilon 11-29-2024 Albumin [Mass/Vol] 4.0 g/dL Normal 3.4-4.8 [facility] Comment on above: Performed By: #### L 500.4050, L501.9520, L501.2450, L100.0100 ####[facility] [address] [place], [address] Albumin/Globulin [Mass ratio] 1.7 {ratio} Normal 0.9-2.4 [facility] Comment on above: Performed By: #### L 500.4050, L501.9520, L501.2450, L100.0100 ####[facility] [address] [place], [address] ALK PHOS 63 U/L Normal 35-104 [facility] Comment on above: Performed By: #### L 500.4050, L501.9520, L501.2450, L100.0100 ####[facility] [address] [place], [address] ALT [Catalytic activity/Vol] 37 U/L High <=34 [facility] Comment on above: Performed By: #### L 500.4050, L501.9520, L501.2450, L100.0100 ####[facility] [address] [place], [address] AST [Catalytic activity/Vol] 29 U/L Normal <=31 [facility] Comment on above: Performed By: #### L 500.4050, L501.9520, L501.2450, L100.0100 ####[facility] [address] [place], [address] Bilirubin [Mass/Vol] 0.57 mg/dL Normal 0.00-1.30 [facility] Comment on above: Performed By: #### L 500.4050, L501.9520, L501.2450, L100.0100 ####[facility] [address] [place], [address] BUN/CRE 34.3 RATIO High 10-20 [facility] Comment on above: Performed By: #### L 500.4050, L501.9520, L501.2450, L100.0100 ####[facility] [address] [place], [address] Calcium [Mass/Vol] 8.9 mg/dL Normal 7.6-11.0 [facility] Comment on above: Performed By: #### L 500.4050, L501.9520, L501.2450, L100.0100 ####[facility] [address] [place], [address] Chloride [Moles/Vol] 98 mmol/L Normal 98-108 [facility] Comment on above: Performed By: #### L 500.4050, L501.9520, L501.2450, L100.0100 ####[facility] [address] [place], [address] CO2 [Moles/Vol] 22.9 mmol/L Normal 21.0-32.0 [facility] Comment on above: Performed By: #### L 500.4050, L501.9520, L501.2450, L100.0100 ####[facility] [address] [place], [address] Creatinine [Mass/Vol] 1.11 mg/dL Normal 0.70-1.20 [facility] Comment on above: Performed By: #### L 500.4050, L501.9520, L501.2450, L100.0100 ####[facility] [address] [place], [address] ECRCL 48.43 ml/min Low 50-250 [facility] Comment on above: Performed By: #### L 500.4050, L501.9520, L501.2450, L100.0100 ####[facility] [address] [place], [address] GAP 12 Normal 5-15 [facility] Comment on above: Performed By: #### L 500.4050, L501.9520, L501.2450, L100.0100 ####[facility] [address] [place], [address] GFR/1.73 sq M.predicted among non-blacks MDRD (S/P/Bld) [Vol rate/Area] 49 mL/min/{1.73_m2} Low >60 [facility] Comment on above: Result Comment: mL/m in/1.73m2 CKD-EPI Creatinine Equation (2020) Performed By: #### L 500.4050, L501.9520, L501.2450, L100.0100 ####[facility] [address] [place], [address] Globulin (S) [Mass/Vol] 2.4 g/dL Normal 2.2-4.2 [facility] Comment on above: Performed By: #### L 500.4050, L501.9520, L501.2450, L100.0100 ####[facility] [address] [place], [address] Glucose [Mass/Vol] 94 mg/dL Normal 70-99 [facility] Comment on above: Performed By: #### L 500.4050, L501.9520, L501.2450, L100.0100 ####[facility] [address] [place], [address] Potassium [Moles/Vol] 5.0 mmol/L Normal 3.3-5.1 [facility] Comment on above: Result Comment: Hemo lysis present, Results??could be affected.?? Performed By: #### L 500.4050, L501.9520, L501.2450, L100.0100 ####[facility] [address] [place], [address] Sodium [Moles/Vol] 133 mmol/L Normal 133-145 [facility] Comment on above: Performed By: #### L 500.4050, L501.9520, L501.2450, L100.0100 ####[facility] [address] [place], [address] T PROT 6.3 g/dL Normal 5.9-8.4 [facility] Comment on above: Performed By: #### L 500.4050, L501.9520, L501.2450, L100.0100 ####[facility] [address], [address] Urea nitrogen [Mass/Vol] 38 mg/dL High 4-19 [facility] Comment on above: Performed By: #### L 500.4050, L501.9520, L501.2450, L100.0100 ####[facility] [address] [place], [address] Echo Completeon 11-29-2024 Echo Complete Normal [facility] Emergency Department Summary on 11-29-2024 Emergency Department Summary Normal [facility] Eosinophil percentageOrdered By: Virgil Tyler on 11-29-2024 Eosinophils/100 WBC (Bld) 2.9 % 0-5 [facility] Erythrocyte distribution wid th ratioOrdered By: Virgilbarb Tyler on 11-29-2024 Erythrocyte distribution width (RBC) [Ratio] 14.4 % 11.6-14.6 [facility] Erythrocyte distribution wid th standard deviationOrdered By: Virgil Tyler on 11-29-2024 Erythrocyte distribution width (RBC) [Ratio] 46.8 fl High 35.1-43.9 [facility] Glomerular filtration rate ( GFR) estimation/1.73 sq m using serum, plasma, or whole bOrdered By: Virgil Tyler on 11-29-2024 GFR/1.73 sq M.predicted among non-blacks MDRD (S/P/Bld) [Vol rate/Area] 49 mL/min/{1.73_m2} Low >60 [facility] Comment on above: mL/min/1.73m2 CKD-EP I Creatinine Equation (2020) H AND P Exam - Hospitaliston 11-29-2024 H&P Exam - Hospitalist Normal [facility] Hematocrit Auto (Bld) [Volum e fraction]Ordered By: Virgil Tyler on 11-29-2024 Hematocrit (Bld) [Volume fraction] 34.5 % Low 37-47 [facility] Hemoglobin A1con 11-29-2024 HbA1c (Bld) [Mass fraction] 5.7 % Normal <=5.6 [facility] Comment on above: Result Comment: Norm al < 5.7 % Prediabetic 5.7 - 6.4 % Diabetic >or= 6.5 % Please note range changes. Performed By: #### L 501.9985, L501.9520, L501.9100, L501.5200, L505.5000 ####[facility] [address] [place], [address] Hemoglobin A1c percentageOrd ered By: Tacho Goncalves on 11-29-2024 HbA1c (Bld) [Mass fraction] 5.7 % <5.7 [facility] Comment on above: Normal < 5.7 % Predi abetic 5.7 - 6.4 % Diabetic >or= 6.5 % Please note range changes. Hemoglobin measurementOrdere d By: Virgil Tyler on 11-29-2024 Hemoglobin (Bld) [Mass/Vol] 11.6 g/dL Low 12.0-15.0 [facility] Immature granulocytes/100 WB C Auto (Bld)Ordered By: Virgil Tyler on 11-29-2024 Immature granulocytes/100 WBC (Bld) 0.500 % 0.0-0.9 [facility] Comment on above: IG% - Immature Granu locytes (promyelocytes, myelocytes and metamyelocytes) > 1% indicates that a LEFT SHIFT is Present. Ketones Test strip Ql (U)Ord ered By: Virgil Tyler on 11-29-2024 Ketones Ql (U) Negative Negative [facility] Laboratory - Chemistry and C hemistry - challengeOrdered By: Virgil Tyler on 11-29-2024 AST [Catalytic activity/Vol] 29 U/L <32 [facility] Lipaseon 11-29-2024 Lipase [Catalytic activity/Vol] 20 U/L Normal 13-75 [facility] Comment on above: Result Comment: Tomasa garcai note:LIPASE revised reference range effective 22.New Lipase methodology. Expected to produce lower valuesthan the previous assay method.NEW Reference Range: 13 - 75 U/L Performed By: #### L 500.4050, L501.9520, L501.2450, L100.0100 ####[facility] [address] [place], [address] Lipase measurementOrdered By : Virgil Tyler on 11-29-2024 Lipase [Catalytic activity/Vol] 20 U/L 13-75 [facility] Comment on above: Please note:LIPASE r evised reference range effective 22. New Lipase methodology. Expected to produce lower values than the previous assay method. NEW Reference Range: 13 - 75 U/L MCV (mean corpuscular volume ) determinationOrdered By: Virgil Tyler on 11-29-2024 MCV (RBC) [Entitic vol] 89.4 fL 81-99 [facility] Magnesiumon 11-29-2024 Magnesium [Mass/Vol] 2.3 mg/dL High 1.5-2.2 [facility] Comment on above: Performed By: #### L 501.9985, L501.9520, L501.9100, L501.5200, L505.5000 ####[facility] [address] [place], [place], [address] Magnesium measurement (mass/ volume)Ordered By: Tacho Goncalves on 11-29-2024 Magnesium (Unsp spec) [Mass/Vol] 2.3 mg/dL High 1.5-2.2 [facility] Mean corpuscular hemoglobin (MCH) determinationOrdered By: Virgil Tyler on 11-29-2024 MCH (RBC) [Entitic mass] 30.1 pg 27.0-32.0 [facility] Mean corpuscular hemoglobin concentration (MCHC) determinationOrdered By: Virgil Tyler on 11-29-2024 MCHC (RBC) [Mass/Vol] 33.6 g/dL 32-36 [facility] Mean platelet volume determi nationOrdered By: Virgil Tyler on 11-29-2024 Platelet mean volume (Bld) [Entitic vol] 10.2 fL 6.2-12.0 [facility] Microscopic analysis of urin e for red blood cells (RBC)Ordered By: Virgil Tyler on 11-29-2024 Microscopic analysis of urine for red blood cells (RBC) 0 SEEN /hpf 0-5 [facility] Monocyte percentageOrdered B y: Virgil Tyler on 11-29-2024 Monocytes/100 WBC (Bld) 12.1 % High 0-10 [facility] Mucus LM Ql (Urine sed)Order ed By: Virgil Tyler on 11-29-2024 Mucus Ql (Urine sed) 0 SEEN /hpf [facility] Neutrophil percentageOrdered By: Virgil Tyler on 11-29-2024 Neutrophils/100 WBC (Bld) 72.4 % High 47-70 [facility] Nitrite Test strip Ql (U)Ord ered By: Virgil Tyler on 11-29-2024 Nitrite Ql (U) Negative Negative [facility] Nucleated red blood cell per centageOrdered By: Virgil Tyler on 11-29-2024 Nucleated RBC/100 WBC (Bld) [Ratio] 0 % 0-5 [facility] Platelet countOrdered By: Rj Tyler on 11-29-2024 Platelets (Bld) [#/Vol] 201 10*3/uL 150-450 [facility] Potassium measurement (mass/ volume)Ordered By: Virgil Tyler on 11-29-2024 Potassium (Unsp spec) [Mass/Vol] 5.0 mmol/L 3.3-5.1 [facility] Comment on above: Hemolysis present, R esults could be affected. Protein Test strip Ql (U)Ord ered By: Virgil Tyler on 11-29-2024 Protein Ql (U) Negative Negative [facility] RBC Auto (Bld) [#/Vol]Ordere d By: Virgil Tyler on 11-29-2024 RBC (Bld) [#/Vol] 3.86 10*6/uL Low 4.2-5.4 [facility] Serum creatinine measurement (mass/volume)Ordered By: Virgil Tyler on 11-29-2024 Creatinine [Mass/Vol] 1.11 mg/dL 0.70-1.20 [facility] Serum globulin measurementOr dered By: Virgil Tyler on 11-29-2024 Globulin (S) [Mass/Vol] 2.4 g/dL 2.2-4.2 [facility] Serum glucose measurement (m ass/volume)Ordered By: Virgil Tyler on 11-29-2024 Glucose [Mass/Vol] 94 mg/dL 70-99 [facility] Serum or plasma alanine sprague otransferase (ALT) measurementOrdered By: Virgil Tyler on 11-29-2024 ALT [Catalytic activity/Vol] 37 U/L High <35 [facility] Serum or plasma albumin julee urement (mass/volume)Ordered By: Virgil Tyler on 11-29-2024 Albumin [Mass/Vol] 4.0 g/dL 3.4-4.8 [facility] Serum or plasma albumin/glob ulin mass ratioOrdered By: Virgil Tyler on 11-29-2024 Albumin/Globulin [Mass ratio] 1.7 {ratio} 0.9-2.4 [facility] Serum or plasma alkaline rachel sphatase measurementOrdered By: Virgil Tyler on 11-29-2024 ALP [Catalytic activity/Vol] 63 U/L 35-104 [facility] Serum or plasma calcium julee urement (mass/volume)Ordered By: Virgil Tyler on 11-29-2024 Calcium [Mass/Vol] 8.9 mg/dL 7.6-11.0 [facility] Serum or plasma ethanol julee urement (mass/volume)Ordered By: Tacho Goncalves on 11-29-2024 Ethanol [Mass/Vol] mg/dL <10.1 [facility] Comment on above: This test is for med ical purposes only. The legal definition of intoxication varies according to local law. Serum or plasma urea nitroge n measurement (mass/volume)Ordered By: Virgil Tyler on 11-29-2024 Urea nitrogen [Mass/Vol] 38 mg/dL High 4-19 [facility] Sodium levelOrdered By: Virgil Tyler on 11-29-2024 Sodium [Moles/Vol] 133 mmol/L 133-145 [facility] Squamous epithelial cells de tection in urine sediment by light microscopyOrdered By: Virgil Tyler on 11-29-2024 Epithelial cells.squamous LM Ql (Urine sed) 0-5 SEEN /hpf 5-10 [facility] TSH DL <= 0.005 mIU/L QnOrde red By: Virgil Tyler on 11-29-2024 TSH Qn 2.190 uIU/mL 0.300-4.20 0 [facility] TSH DL <= 0.005 mIU/L QnOrde red By: Tacho Goncalves on 11-29-2024 TSH Qn 2.120 uIU/mL 0.300-4.20 0 [facility] Thyroid Stim Hormone (TSH)on 07-30-2025 TSH 2.120 uIU/mL Normal 0.300-4.20 0 [facility] Comment on above: Performed By: #### L 501.9985, L501.9520, L501.9100, L501.5200, L505.5000 ####[facility] [address] [place], [address] TSH 2.190 uIU/mL Normal 0.300-4.20 0 [facility] Comment on above: Performed By: #### L 500.4050, L501.9520, L501.2450, L100.0100 ####[facility] [address] [place], [address] Total proteinOrdered By: Leticia Tyler on 11-29-2024 Protein [Mass/Vol] 6.3 g/dL 5.9-8.4 [facility] Urinalysis, Completeon 11-29 EPI,SQUAMOUS 0-5 SEEN Normal 5-10 [facility] Comment on above: Order Comment: COLLE CTOR TO SPECIFY Performed By: #### L 400.0001 ####[facility] [address] [place], [address] WBC 0-5 SEEN Normal 0-5 [facility] Comment on above: Order Comment: COLLE CTOR TO SPECIFY Performed By: #### L 400.0001 ####[facility] [address] [place], [address] BACTERIA 0 SEEN Normal None Seen [facility] Comment on above: Order Comment: COLLE CTOR TO SPECIFY Performed By: #### L 400.0001 ####[facility] [address] [place], [address] Mucus Ql (Urine sed) 0 SEEN Normal [facility] Comment on above: Order Comment: COLLE CTOR TO SPECIFY Performed By: #### L 400.0001 ####[facility] [address] [place], [address] RBC 0 SEEN Normal 0-5 [facility] Comment on above: Order Comment: COLLE CTOR TO SPECIFY Performed By: #### L 400.0001 ####[facility] [address] [place], [address] Urine clarityOrdered By: Leticia Tyler on 11-29-2024 Clarity (U) Clear Clear [facility] Urine color determinationOrd ered By: Virgil Tyler on 11-29-2024 Color (U) Yellow Yellow [facility] Urine glucose detectionOrder ed By: Virgil Tyler on 11-29-2024 Glucose Ql (U) Normal mg/dl Normal [facility] Urine leukocyte esterase det ection by dipstickOrdered By: Virgil Tyler on 11-29-2024 Leukocyte esterase Test strip Ql (U) 500 /ul High Negative [facility] Urine pHOrdered By: Virgil del real on 11-29-2024 pH (U) 6.0 [pH] 5.0 - 8.0 [facility] Urine sediment bacteria coun t by microscopy (number/high power field)Ordered By: Virgil Tyler on 11-29-2024 Bacteria LM.HPF (Urine sed) [#/Area] 0 /[HPF] None Seen [facility] Urine specific gravity measu rementOrdered By: Virgil Tyler on 11-29-2024 Specific gravity (U) [Rel density] 1.010 1.002-1.03 0 [facility] Urine urobilinogen measureme ntOrdered By: Virgil Tyler on 11-29-2024 Urobilinogen Ql (U) Normal mg/dl Normal [facility] Vitamin B12 ser/plasOrdered By: Tacho Goncalves on 11-29-2024 Cobalamin (Vitamin B12) [Mass/Vol] 2838 pg/mL High 180-914 [facility] White blood cell (WBC) count Ordered By: Virgil Tyler on 11-29-2024 WBC (Bld) [#/Vol] 9.6 10*3/uL 4.4-11.0 [facility] White blood cell countOrdere d By: Virgil Tyler on 11-29-2024 White blood cell count 0-5 SEEN /hpf 0-5 [facility] 11-10-2024 CNPN Telephone (FAMPWS) MICHAEL MEIER ([id number]) 1940 F Date Time Provider Department 11/10/24 MICHAEL PUGA FAMWS During your visit today, we recorded the following information about you: Amanda Pratt RN 11/10/2024 2:50 PM Signed Kell with [facility] calls to let provider know [...] % ophthalm (more content not included)... Normal [facility] Cardiology Visit Reporton Cardiology Visit Report Normal [facility] 11-01-2024 LORRI Telephone (KHADAR) MICHAEL MEIER ([id number]) 1940 F Date Time Provider Department 11/01/24 KEY PORTILLO During your visit today, we recorded the following information about you: Key Portillo APRN.[facility] 11/01/2024 9:22 AM Signed ----- Message from Sarah Merchant, PT sent at 10/27/2024 6:59 PM EDT ----- Hi Dr Puga, We're seeing Michael for PT (she was referred by [facility]) and we've also seen her here in the past for ortho/mobility issues. She's been reporting increased Shortness of Breath with minimal activity which I definitely noticed today (I encouraged her to go to ER prn but she doesn't think it's necessary). She's also reporting increased low back pain (mostly with standing AND walking). 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 I also think a spine/pain mgmt consult would be a good idea for the chronic/worsening low back pain. Thanks, Sarah Merchant, PT Key Portillo APRN.STEREOPTIC PROJECTION TOPOGRAPHER 11/01/2024 9:22 AM Signed Please see if patient is willing to make appointment due to Shortness of Breath as mentioned below. Thank you, Key Portillo APRN.STEREOPTIC PROJECTION TOPOGRAPHER Marisol Cano LPN 11/01/2024 12:50 PM Signed Called spoke [...] skin [L90.5] (more content not included)... Normal [facility] Absolute lymphocyte countOrd ered By: Anabel Horne on 10-31-2024 Lymphocytes Auto (Unsp spec) [#/Vol] 1.16 10*3/uL 0.83-4.51 [facility] Absolute neutrophil countOrd ered By: Anabel Horne on 10-31-2024 Neutrophils (Bld) [#/Vol] 10.5 10*3/uL High 2.0-7.7 [facility] Anion gap in Serum or Plasma Ordered By: Anabel Horne on 10-31-2024 Anion gap [Moles/Vol] 14 mmol/L 5-15 [facility] Automated lymphocyte count a s percentage of total leukocytesOrdered By: Anabel Horne on 10-31-2024 Lymphocytes/100 WBC Auto (Unsp spec) 8.7 % Low 19-41 [facility] BUN/creatinine ratioOrdered By: Anabel Horne on 10-31-2024 Urea nitrogen/Creatinine [Mass ratio] 26.2 mg/mg High 02-19 [facility] Basic Metabolic Profile (BMP )on 10-31-2024 BUN/CRE 26.2 RATIO High 02-19 [facility] Comment on above: Performed By: #### L 100.0100, L501.9520, L500.2500, L503.7505 ####[facility] [address], [address] Calcium [Mass/Vol] 9.0 mg/dL Normal 7.6-11.0 [facility] Comment on above: Performed By: #### L 100.0100, L501.9520, L500.2500, L503.7505 ####[facility] [address] [place], [address] Chloride [Moles/Vol] 96 mmol/L Low 98-108 [facility] Comment on above: Performed By: #### L 100.0100, L501.9520, L500.2500, L503.7505 ####[facility] [address] [place], [address] CO2 [Moles/Vol] 23.0 mmol/L Normal 21.0-32.0 [facility] Comment on above: Performed By: #### L 100.0100, L501.9520, L500.2500, L503.7505 ####[facility] [address] [place], [address] Creatinine [Mass/Vol] 1.40 mg/dL High 0.70-1.20 [facility] Comment on above: Performed By: #### L 100.0100, L501.9520, L500.2500, L503.7505 ####[facility] [address] [place], [address] GAP 14 Normal 5-15 [facility] Comment on above: Performed By: #### L 100.0100, L501.9520, L500.2500, L503.7505 ####[facility] [address] [place], [address] GFR/1.73 sq M.predicted among non-blacks MDRD (S/P/Bld) [Vol rate/Area] 37 mL/min/{1.73_m2} Low >60 [facility] Comment on above: Result Comment: mL/m in/1.73m2 CKD-EPI Creatinine Equation (2020) Performed By: #### L 100.0100, L501.9520, L500.2500, L503.7505 ####[facility] [address] [place], [address] Glucose [Mass/Vol] 94 mg/dL Normal 70-99 [facility] Comment on above: Performed By: #### L 100.0100, L501.9520, L500.2500, L503.7505 ####[facility] [address] [place], [address] Potassium [Moles/Vol] 5.0 mmol/L Normal 3.3-5.1 [facility] Comment on above: Result Comment: Hemo lysis present, Results??could be affected.?? Performed By: #### L 100.0100, L501.9520, L500.2500, L503.7505 ####[facility] [address] [place], [address] Sodium [Moles/Vol] 133 mmol/L Normal 133-145 [facility] Comment on above: Performed By: #### L 100.0100, L501.9520, L500.2500, L503.7505 ####[facility] [address] [place], [address] Urea nitrogen [Mass/Vol] 37 mg/dL High 4-19 [facility] Comment on above: Performed By: #### L 100.0100, L501.9520, L500.2500, L503.7505 ####[facility] [address] [place], [address] Basophil percentageOrdered B y: Anabel Horne on 10-31-2024 Basophils/100 WBC (Bld) 0.6 % 0-1 [facility] CBC W/Diff, Automatedon 07-0 -2024 Absolute Lymph 1.16 X10 3/uL Normal 0.83-4.51 [facility] Comment on above: Performed By: #### L 100.0100, L501.9520, L500.2500, L503.7505 ####[facility] [address] [place], [address] Absolute Neut 10.5 X10 3/uL High 2.0-7.7 [facility] Comment on above: Performed By: #### L 100.0100, L501.9520, L500.2500, L503.7505 ####[facility] [address] [place], [address] Basophils/100 WBC (Bld) 0.6 % Normal 0-1 [facility] Comment on above: Performed By: #### L 100.0100, L501.9520, L500.2500, L503.7505 ####[facility] [address] [place], [address] Eosinophils/100 WBC (Bld) 0.7 % Normal 0-5 [facility] Comment on above: Performed By: #### L 100.0100, L501.9520, L500.2500, L503.7505 ####[facility] [address] [place], [address] Erythrocyte distribution width (RBC) [Ratio] 14.4 % Normal 11.6-14.6 [facility] Comment on above: Performed By: #### L 100.0100, L501.9520, L500.2500, L503.7505 ####[facility] [address] [place], [address] Hematocrit (Bld) [Volume fraction] 37.0 % Normal 37-47 [facility] Comment on above: Performed By: #### L 100.0100, L501.9520, L500.2500, L503.7505 ####[facility] [address] [place], [address] Hemoglobin (Bld) [Mass/Vol] 12.4 g/dL Normal 12.0-15.0 [facility] Comment on above: Performed By: #### L 100.0100, L501.9520, L500.2500, L503.7505 ####[facility] [address] [place], [address] IG% 0.500 Normal 0.0-0.9 [facility] Comment on above: Result Comment: IG% - Immature Granulocytes (promyelocytes, myelocytes andmetamyelocytes) > 1% indicates that a LEFT SHIFT is Present. Performed By: #### L 100.0100, L501.9520, L500.2500, L503.7505 ####[facility] [address] [place], [address] Lymphocytes/100 WBC (Bld) 8.7 % Low 19-41 [facility] Comment on above: Performed By: #### L 100.0100, L501.9520, L500.2500, L503.7505 ####[facility] [address] [place], [address] MCH (RBC) [Entitic mass] 30.3 pg Normal 27.0-32.0 [facility] Comment on above: Performed By: #### L 100.0100, L501.9520, L500.2500, L503.7505 ####[facility] [address] [place], [address] MCHC (RBC) [Mass/Vol] 33.5 g/dL Normal 32-36 [facility] Comment on above: Performed By: #### L 100.0100, L501.9520, L500.2500, L503.7505 ####[facility] [address] [place], [address] MCV (RBC) [Entitic vol] 90.5 fL Normal 81-99 [facility] Comment on above: Performed By: #### L 100.0100, L501.9520, L500.2500, L503.7505 ####[facility] [address] [place], [address] Monocytes/100 WBC (Bld) 10.6 % High 0-10 [facility] Comment on above: Performed By: #### L 100.0100, L501.9520, L500.2500, L503.7505 ####[facility] [address] [place], [address] Neutrophils/100 WBC (Bld) 78.9 % High 47-70 [facility] Comment on above: Performed By: #### L 100.0100, L501.9520, L500.2500, L503.7505 ####[facility] [address] [place], [address] Nucleated RBC (Bld) [#/Vol] 0 10*3/uL Normal 0-5 [facility] Comment on above: Performed By: #### L 100.0100, L501.9520, L500.2500, L503.7505 ####[facility] [address] [place], [address] Platelet mean volume (Bld) [Entitic vol] 10.1 fL Normal 6.2-12.0 [facility] Comment on above: Performed By: #### L 100.0100, L501.9520, L500.2500, L503.7505 ####[facility] [address] [place], [address] Platelets (Bld) [#/Vol] 292 10*3/uL Normal 150-450 [facility] Comment on above: Performed By: #### L 100.0100, L501.9520, L500.2500, L503.7505 ####[facility] [address] [place], [address] RBC (Bld) [#/Vol] 4.09 10*6/uL Low 4.2-5.4 [facility] Comment on above: Performed By: #### L 100.0100, L501.9520, L500.2500, L503.7505 ####[facility] [address] [place], [address] RDW SD 47.9 fl High 35.1-43.9 [facility] Comment on above: Performed By: #### L 100.0100, L501.9520, L500.2500, L503.7505 ####[facility] [address] [place], [address] WBC (Bld) [#/Vol] 13.3 10*3/uL High 4.4-11.0 [facility] Comment on above: Performed By: #### L 100.0100, L501.9520, L500.2500, L503.7505 ####[facility] [address] [place], [address] Carbon dioxide, total [Moles /volume] in Central venous bloodOrdered By: Anabel Horne on 10-31-2024 CO2 [Moles/Vol] 23.0 mmol/L 21.0-32.0 [facility] Chest PA and Lateralon 10-31 Chest PA and Lateral Normal [facility] Chloride assayOrdered By: Sugey Horne on 10-31-2024 Chloride [Moles/Vol] 96 mmol/L Low 98-108 [facility] Eosinophil percentageOrdered By: Anabel Horne on 10-31-2024 Eosinophils/100 WBC (Bld) 0.7 % 0-5 [facility] Erythrocyte distribution wid th ratioOrdered By: Anabel Horne on 10-31-2024 Erythrocyte distribution width (RBC) [Ratio] 14.4 % 11.6-14.6 [facility] Erythrocyte distribution wid th standard deviationOrdered By: Anabel Horne on 10-31-2024 Erythrocyte distribution width (RBC) [Ratio] 47.9 fl High 35.1-43.9 [facility] Glomerular filtration rate ( GFR) estimation/1.73 sq m using serum, plasma, or whole bOrdered By: Anabel Horne on 10-31-2024 GFR/1.73 sq M.predicted among non-blacks MDRD (S/P/Bld) [Vol rate/Area] 37 mL/min/{1.73_m2} Low >60 [facility] Comment on above: mL/min/1.73m2 CKD-EP I Creatinine Equation (2020) Hematocrit Auto (Bld) [Volum e fraction]Ordered By: Anabel Horne on 10-31-2024 Hematocrit (Bld) [Volume fraction] 37.0 % 37-47 [facility] Hemoglobin measurementOrdere d By: Anabel Horne on 10-31-2024 Hemoglobin (Bld) [Mass/Vol] 12.4 g/dL 12.0-15.0 [facility] Immature granulocytes/100 WB C Auto (Bld)Ordered By: Anabel Horne on 10-31-2024 Immature granulocytes/100 WBC (Bld) 0.500 % 0.0-0.9 [facility] Comment on above: IG% - Immature Granu locytes (promyelocytes, myelocytes and metamyelocytes) > 1% indicates that a LEFT SHIFT is Present. L503.7505on 10-31-2024 Natriuretic peptide B (Bld) [Mass/Vol] 216 pg/mL Normal <=1800 [facility] Comment on above: Result Comment: Hear t Failure Unlikely: < 300 pg/mLHeart Failure Likely< 50 Years: > 450 pg/mL50-75 Years: > 900 pg/mL>75 Years: > 1800 pg/mL Performed By: #### L 100.0100, L501.9520, L500.2500, L503.7505 ####[facility] [address] [place], [address] MCV (mean corpuscular volume ) determinationOrdered By: Anabel Horne on 10-31-2024 MCV (RBC) [Entitic vol] 90.5 fL 81-99 [facility] Mean corpuscular hemoglobin (MCH) determinationOrdered By: Anabel Horne on 10-31-2024 MCH (RBC) [Entitic mass] 30.3 pg 27.0-32.0 [facility] Mean corpuscular hemoglobin concentration (MCHC) determinationOrdered By: Anabel Horne on 10-31-2024 MCHC (RBC) [Mass/Vol] 33.5 g/dL 32-36 [facility] Mean platelet volume determi nationOrdered By: Anabel Horne on 10-31-2024 Platelet mean volume (Bld) [Entitic vol] 10.1 fL 6.2-12.0 [facility] Monocyte percentageOrdered B y: Anabel Horne on 10-31-2024 Monocytes/100 WBC (Bld) 10.6 % High 0-10 [facility] Natriuretic peptide.B prohor carmelita N-Terminal [Mass/volume] in Serum or PlasmaOrdered By: Anabel Horne on 10-31-2024 Natriuretic peptide.B prohormone N-Terminal [Mass/Vol] 216 pg/mL <1800 [facility] Comment on above: Heart Failure Unlike ly: < 300 pg/mLHeart Failure Likely< 50 Years: > 450 pg/mL50-75 Years: > 900 pg/mL>75 Years: > 1800 pg/mL Neutrophil percentageOrdered By: Anabel Horne on 10-31-2024 Neutrophils/100 WBC (Bld) 78.9 % High 47-70 [facility] Nucleated red blood cell per centageOrdered By: Anabel Horne on 10-31-2024 Nucleated RBC/100 WBC (Bld) [Ratio] 0 % 0-5 [facility] Platelet countOrdered By: Sugey Horne on 10-31-2024 Platelets (Bld) [#/Vol] 292 10*3/uL 150-450 [facility] Potassium measurement (mass/ volume)Ordered By: Anabel Horne on 10-31-2024 Potassium (Unsp spec) [Mass/Vol] 5.0 mmol/L 3.3-5.1 [facility] Comment on above: Hemolysis present, R esults could be affected. RBC Auto (Bld) [#/Vol]Ordere d By: Anabel Horne on 10-31-2024 RBC (Bld) [#/Vol] 4.09 10*6/uL Low 4.2-5.4 [facility] Serum creatinine measurement (mass/volume)Ordered By: Anabel Horne on 10-31-2024 Creatinine [Mass/Vol] 1.40 mg/dL High 0.70-1.20 [facility] Serum glucose measurement (m ass/volume)Ordered By: Anabel Horne on 10-31-2024 Glucose [Mass/Vol] 94 mg/dL 70-99 [facility] Serum or plasma calcium julee urement (mass/volume)Ordered By: Anabel Horne on 10-31-2024 Calcium [Mass/Vol] 9.0 mg/dL 7.6-11.0 [facility] Serum or plasma urea nitroge n measurement (mass/volume)Ordered By: Anabel Horne on 10-31-2024 Urea nitrogen [Mass/Vol] 37 mg/dL High 4-19 [facility] Sodium levelOrdered By: Thien Horne on 10-31-2024 Sodium [Moles/Vol] 133 mmol/L 133-145 [facility] TSH DL <= 0.005 mIU/L QnOrde red By: Anabel Horne on 10-31-2024 TSH Qn 3.460 uIU/mL 0.300-4.20 0 [facility] Thyroid Stim Hormone (TSH)on 10-31-2024 TSH 3.460 uIU/mL Normal 0.300-4.20 0 [facility] Comment on above: Performed By: #### L 100.0100, L501.9520, L500.2500, L503.7505 ####[facility] [address] [place], [place], [id number] White blood cell (WBC) count Ordered By: Anabel Horne on 10-31-2024 WBC (Bld) [#/Vol] 13.3 10*3/uL High 4.4-11.0 [facility] CNTHERAPYon 10-27-2024 CNTHERAPY OT/PT/Speech Visit ( LDPT) HARDEEPMICHAEL ([id number]) 1940 F Date Time Provider Department 10/27/24 12:45 PM SARAH MERCHANT LDFRANTZ Date Time Provider Department [place] 10/27/2024 12:45 PM [id number], CARLA LDPT [facility] Reason for Visit: Physical Therapy [503] [...] 1 capsule by mouth once daily. [facility] MICHAEL MEIER ([id number]) 1940 F Date Time Provider Department 10/25/24 MICHAEL PUGAWS During your visit today, we [...] she states she will add the Tylenol. July Marcano RN Allergies As of Date: 10/25/2024 [...] DYSMETABOLIC SYNDRO (more content not included)... Normal [facility] CNTHERAPYon 10-09-2024 CNTHERAPY OT/PT/Speech Visit ( LDPT) BORNSTINE,MICHAEL J ([id number]) 1940 F Date Time Provider Department 10/09/24 12:45 PM JOY SUN Date Time Provider Department [place] 10/09/2024 12:45 PM [id number] SUN [facility] Reason for Visit: Physical Therapy [503] [...] 1 capsule by mouth once daily. Normal [facility] CNTHERAPYon 10-02-2024 CNTHERAPY OT/PT/Speech Visit ( LDPT) MICHAEL MEIER ([id number]) 1940 F Date Time Provider Department 10/02/24 3:00 PM PJ BLEDSOE ADRIANA Date Time Provider Department Center 10/02/2024 3:00 PM [id number], PJ WRIGHT [facility] Reason for Visit: Physical Therapy [503] [...] 1 capsule by mouth once daily. Normal [facility] [id number] 09-28-2024 [id number] O ID: [id number] Author: SARAH MERCHANT PT Service: ? Author Type: Physical Therapist Type: [id number] Filed: 09/28/2024 15:41 Note Text: [facility] Physical Therapy Plan of Care Certification Patient Name: Michael Meier : 1940 CC #: [id number] Date: 09/28/2024 To: Arlene Schwarz MD From Therapist: Sarah Merchant PT RE: Patient Certification/ Recertification Your review, approval and electronic signature are required in order to comply with Payor: MEDICARE / Plan: MEDICARE A AND B / Product Type: Medicare / regulations. The identified Physical Therapy PLAN OF CARE for the patient is as follows: No diagnosis found. PLAN OF CARE: Assessment: Michael Meeir presents with chief complaint of general weakness [...] increase T-score by a minimum 5 points. [place] in home exercise program. Patient will demonstrate [...] Planned: 12 Planned Treatment Interventions: Therapeutic exercise (20423), Neuromuscular re-education (82648), Therapeutic activities (84528), Self-group home management (67173), Gait Training (49032), Patient/Family/Caregiver Education, General Conditioning PLAN FOR NEXT [...] reviewed the treatment plan for Michael Meier, [facility]# [id number] for the period of 09/28/24 -- 12/27/24, established on 09/28/2024. Signature certifies the need for therapy services. [facility] 09-28-2024 [facility] HARDEEPMICHAEL ([id number]) 1940 F Date Time Provider Department 09/28/24 [facility] During your visit today, we recorded the following information about you: Nadine Colon LPN 09/28/2024 1:48 PM Signed Kell from [facility] calling to report patient tremor is [...] of the office. Please advise Key Portillo APRN.STEREOPTIC PROJECTION TOPOGRAPHER 09/28/2024 3:02 PM Signed Pt needs appointment to assess this. This was not mentioned in recent office visit 1 month ago. Thank you, Key Portillo APRN.CARMELINA Marisol Cano, CAROLINE 09/28/2024 4:01 PM Signed Spoke with Kell [...] [D23.30] 01/21/20 (more content not included)... Normal [facility] CNTHERAPYon 09-28-2024 CNTHERAPY OT/PT/Speech Visit ( LDPT) MICHAEL MEIER ([id number]) 1940 F Date Time Provider Department 09/28/24 2:15 PM SARAH MERCHANT LDPT Date Time Provider Department Center 09/28/2024 2:15 PM [id number], CARLA LDPT [facility] Reason for Visit: PT Eval [747] [...] by mouth once daily. Letter Text [facility] (FAMPWS) MICHAEL MEIER ([id number]) 1940 F Date Time Provider Department 09/08/24 MICHAEL PUGA [facility] During your visit today, we recorded the following information about you: Loli Adamson, RN 09/08/2024 10:46 AM Signed Davie Noguera- reports since pt has dx JSOE on CPAP, per medicare guidelines, pt would have to have sleep titration study to qualify for oxygen. States pt would not qualify for oxygen- with overnight pulse oximetry test per medicare guidelines. Please phone Jackelin with any questions: [phone] extension [phone] Michael Puga DO 09/08/2024 12:37 PM Signed Noted, is she willing to do this testing? DO Juan Diego Dow M Robin, RN 09/08/2024 1:38 PM Signed Phoned pt and explained what Poornima reported needed to be done per Medicare guidelines for her to qualify for oxygen. Pt reports she was in [facility] about a yr ago with pneumonia, and she had to have a sleep study done with Dr. Alcala to qualify for oxygen. Reports she had an oxygen concentrator for 6 weeks at that time. Asking if those sleep results would work for this? Asking where she would have to go for a titration study with [facility]. Would like to know where [facility] does the study. If she doesn't want to go to that place then she will go back to Dr. Sibilia. Pt states she is willing to do whatever pcp thinks she should do. Please advise pt. Amanda Pratt, RN 09/08/2024 1:53 PM Signed Patient calls back [...] Prednisone and not using the oxygen. Amanda Pratt, Michael Fernandez DO 09/08/2024 5:06 PM Signed Noted DO [...] aspirin, e (more content not included)... [facility] MICHEAL MEIER ([id number]) 1940 F Date Time Provider Department 09/05/24 MICHAEL PUGA During your visit today, we [...] 09/07/2024 11:18 AM Signed Petra NOLASCO from [facility] calls and is asking status of request. When order is placed, please fax order to [employer]. Please place order for nighttime pulsometry test and fax to [employer]. Please review and advise, GLYNN Bonilla Rebekah, APRN.CARMELINA 09/07/2024 1:33 PM Signed I placed the order best I know how to. Please fax per below request. Asia Rosales APRN.Jacque Arrieta MA 09/08/2024 8:16 AM Signed Please print script ALEX Arenas Rebekah, APRN.CNP 09/08/2024 8:23 AM Signed It's in the outbox in my office. Asia Rosales APRN.Jacque Arrieta MA 09/08/2024 8:52 AM Signed Faxed Jacque Machuca MA Allergies As of Date: 09/05/2024 Noted [...] Fully Assessed Reason for Visit: Patient Question [3435] Primary Visit Diagnosis:Congestive heart failure, unspecified HF chronicity, unspecified heart failure type (HCC) [I50.9] Other Visit Diagnoses:Obstructive lung disease (HCC) [J44.9] Chronic respiratory failure with hypoxia (HCC) [J96.11] Order(s):NONINVASV OXYGEN SATUR;SINGLE [70062OFN] Order #: [id number] Prescriptions as of 09/08/2024 - rOPINIRole (REQUIP) [...] Noted Resolv (more content not included)... Normal [facility] CNOVon 08-30-2024 CNOV Office Visit (FAMPWS ) MICHAEL MEIER ([id number]) 1940 F Date Time Provider Department 08/30/24 3:00 PM MICHAEL PUGA FAMPWS During your visit today, we recorded the following information about you: Temperature Pulse Respiration Blood pressure 97 degrees 64/minute 20/minute 148/64 Weight 104.3 kg PguaMichael tam, DO 08/30/2024 10:10 PM Signed CC: Michael Meier [...] ACETBLR/PROX FEM PROSTC AGRFT/ALGRFT Left 07/2016 [facility] CONDYLEANDPLATU MEDIALANDLAT COMPARTMENTS 11/15/2009 Knee replacement, total -Left - [facility] ARTHRP KNE CONDYLEANDPLATU MEDIALANDLAT COMPARTMENTS 12/30/2009 Right knee replaced COLONOSCOPY FLX DX W/COLLJ SPEC WHEN PFRMD 06/29/2017 Colonoscopy EGD 10/17/2020 EGD W/O [facility] SPEC VARICIES INJ 01/08/2022 EGD W/O [facility] SPEC VARICIES INJ 03/31/2024 Lito ESOPHAGOGASTRODUODENOSCOPY TRANSORAL [...] tablet Ta (more content not included)... Normal [facility] HEMOGLOBIN A1C (POC)on 08-30 HbA1c (Bld) [Mass fraction] 5.2 % 4.3 - 5.6 % [facility] Comment on above: Location:[address], [place], [address] Point of care (POC) Hemoglobin A1c (HGBA1C) [...] specific diabetes management situations: The POC device client solutions director provides a normal range of 4.2% to 6.5% for the HGBA1C POC test. However, the [place] [employer] guidelines indicate that patients with [...] anemia) that alter red blood cell lifespan. [facility] Priscila 08-25-2024 CARMELINAN Telephone (FAMJersonWS) MICHAEL MEIER ([id number]) 1940 F Date Time Provider Department 08/25/24 ASIA ROSALES During your visit today, we recorded the following information about you: Ruba Argueta LPN 08/25/2024 9:35 AM Signed Petra from [facility] calling stating that the referral for Palliative Care be faxed to [facility] at [phone]. Referral and office visit faxed as requested. [...] and urg (more content not included)... Normal [facility] CNOVon 08-17-2024 CNOV Office Visit (FAMPWS ) MICHAEL MEIER ([id number]) 1940 F Date Time Provider Department 08/17/24 3:20 PM ASIA ROSALES During your visit today, we recorded the following information about you: Pulse Blood pressure 61/minute 136/68 Asia Rosales APRN.STEREOPTIC PROJECTION TOPOGRAPHER 08/18/2024 8:27 AM Signed Chief Complaint Patient presents with: Medication Follow-up: Increase paxil HPI Michael Deras Hardeep is a 84 year old female who [...] COMPARTMENTS 11/15/2009 Knee replacement, total -Left - [facility] ARTHRP KATIE CONDYLEANDPLATU MEDIALANDLAT COMPARTMENTS 12/30/2009 Right knee replaced COLONOSCOPY FLX DX W/COLLJ SPEC WHEN PFRMD 06/29/2017 Colonoscopy EGD 10/17/2020 EGD W/O [facility] SPEC VARICIES INJ 01/08/2022 EGD W/O [facility] SPEC VARICIES INJ 03/31/2024 Lito [...] ENTERIC COATED (more content not included)... Normal [facility] ([id number]) 1940 F Date Time Provider Department 08/16/24 MICHAEL PUGA [facility] During your visit today, we recorded the following information about you: Loli Adamson RN 08/16/2024 1:46 PM [facility] she is seeing patient and spoke with patient today. Patient reports to she is depressed and feels she needs increase in her paxil medication. SW reports patient has lack of motivation, and [...] nurse phoned patient and scheduled appt with Facilities Administrator for tomorrow to see if Facilities Administrator can increase patient's paxil. Asia Rosales APRN.STEREOPTIC PROJECTION TOPOGRAPHER 08/18/2024 2:37 PM Signed I saw her in the office yesterday 08/17 and these concerns were addressed. Asia Rosales APRN.STEREOPTIC PROJECTION TOPOGRAPHER Allergies As of Date: 08/16/2024 Noted Allergy [...] FACE NEC (more content not included)... Normal [facility] Anion gap in Serum or Plasma Ordered By: Anabel Horne on 07-07-2024 Anion gap [Moles/Vol] 20 mmol/L High 09-14 [facility] BUN/creatinine ratioOrdered By: Anabel Horne on 07-07-2024 Urea nitrogen/Creatinine [Mass ratio] 26.5 mg/mg High - [facility] Basic Metabolic Profile (BMP )on 07-07-2024 BUN/CRE 26.5 RATIO High [facility] Comment on above: Performed By: #### L 500.2500 ####[facility] [address] [place], [address] Calcium [Mass/Vol] 9.5 mg/dL Normal 7.6-11.0 [facility] Comment on above: Performed By: #### L 500.2500 ####[facility] [address] [place], [address] Chloride [Moles/Vol] 97 mmol/L Low 98-108 [facility] Comment on above: Performed By: #### L 500.2500 ####[facility] [address] [place], [address] CO2 [Moles/Vol] 19.7 mmol/L Low 21.0-32.0 [facility] Comment on above: Performed By: #### L 500.2500 ####[facility] [address] [place], [address] Creatinine [Mass/Vol] 1.30 mg/dL High 0.70-1.20 [facility] Comment on above: Performed By: #### L 500.2500 ####[facility] [address] [place], [address] GAP 20 High 5-15 [facility] Comment on above: Performed By: #### L 500.2500 ####[facility] [address] [place], [address] GFR/1.73 sq M.predicted among non-blacks MDRD (S/P/Bld) [Vol rate/Area] 41 mL/min/{1.73_m2} Low >60 [facility] Comment on above: Result Comment: mL/m in/1.73m2 CKD-EPI Creatinine Equation (2020) Performed By: #### L 500.2500 ####[facility] [address] [place], [address] Glucose [Mass/Vol] 99 mg/dL Normal 70-99 [facility] Comment on above: Performed By: #### L 500.2500 ####[facility] [address] [place], [address] Potassium [Moles/Vol] 4.3 mmol/L Normal 3.3-5.1 [facility] Comment on above: Performed By: #### L 500.2500 ####[facility] [address] [place], [address] Sodium [Moles/Vol] 137 mmol/L Normal 133-145 [facility] Comment on above: Performed By: #### L 500.2500 ####[facility] [address] [place], [address] Urea nitrogen [Mass/Vol] 35 mg/dL High 4-19 [facility] Comment on above: Performed By: #### L 500.2500 ####[facility] [address] [place], [address] Carbon dioxide, total [Moles /volume] in Central venous bloodOrdered By: Anabel Horne on 07-07-2024 CO2 [Moles/Vol] 19.7 mmol/L Low 21.0-32.0 [facility] Chloride assayOrdered By: Sugey Horne on 07-07-2024 Chloride [Moles/Vol] 97 mmol/L Low 98-108 [facility] GFR/1.73 sq M.predicted herve g non-blacks MDRD (S/P/Bld) [Vol rate/Area]Ordered By: Anabel Horne on 07-07-2024 Estimated GFR (MDRD) Non-Af Amer 41 Low >60 [facility] Comment on above: mL/min/1.73m2 CKD-EP I Creatinine Equation (2020) Glomerular filtration rate ( GFR) estimation/1.73 sq m using serum, plasma, or whole bOrdered By: Anabel Horne on 07-07-2024 GFR/1.73 sq M.predicted among non-blacks MDRD (S/P/Bld) [Vol rate/Area] 41 mL/min/{1.73_m2} Low >60 [facility] Comment on above: mL/min/1.73m2 CKD-EP I Creatinine Equation (2020) Potassium (Unsp spec) [Mass/ Vol]Ordered By: Anabel Horne on 07-07-2024 Potassium [Moles/Vol] 4.3 mmol/L 3.3-5.1 [facility] Potassium measurement (mass/ volume)Ordered By: Anabel Horne on 07-07-2024 Potassium (Unsp spec) [Mass/Vol] 4.3 mmol/L 3.3-5.1 [facility] Serum creatinine measurement (mass/volume)Ordered By: Anabel Horne on 07-07-2024 Creatinine [Mass/Vol] 1.30 mg/dL High 0.70-1.20 [facility] Serum glucose measurement (m ass/volume)Ordered By: Anabel Horne on 07-07-2024 Glucose [Mass/Vol] 99 mg/dL 70-99 [facility] Serum or plasma calcium julee urement (mass/volume)Ordered By: Anabel Horne on 07-07-2024 Calcium [Mass/Vol] 9.5 mg/dL 7.6-11.0 [facility] Serum or plasma urea nitroge n measurement (mass/volume)Ordered By: Anabel Horne on 07-07-2024 Urea nitrogen [Mass/Vol] 35 mg/dL High 4-19 [facility] Sodium levelOrdered By: Thien Horne on 07-07-2024 Sodium [Moles/Vol] 137 mmol/L 133-145 [facility] Carotid Duplex Ultrasoundon 07-03-2024 Carotid Duplex Ultrasound Normal [facility] Duplex ultrasound of carotid artery reportOrdered By: Virgil Her on 07-03-2024 Study report [facility] [address] [place] [address] Carotid Duplex Ultrasound 07/03/24 1246 MR#: [id number] Acct: [id number] Name: MICHAEL MEIER Rep #:[id number] : 1940 84 From: Virgil Souza Attending Dr: NIDA Katz Status: REG CLI [...] the left vertebral artery. Procedure Carotid Duplex 80575. This is a Carotid Duplex examination using B-mode, color flow and specral Doppler. Exam performed in department. VL/Carotid Duplex Ultrasound Interpretation Summary Mild (<50%) stenosis right extracranial internal carotid. Mild (<50%) stenosis left extracranial internal carotid. Patent and antegrade vertebrals bilaterally. Ordering Physician: Anabel Horne Referring Physician: Michael Puga Performed By: Ernestine Elliott, RDCS, RVT 07/03/241805 Date _ Virgil Her MD CC: Dr. Michael Puga DO; NIDA Katz ~ Date Dictated: 07/03/24 1246 Date Transcribed: 07/03/241805 Bulk Tank Driver: Signed [facility] Work Phone: Priscila 06-26-2024 [facility] Telephone (FAMPWS) MICHAEL MEIER ([id number]) 1940 F Date Time Provider Department 06/26/24 [facility] During your visit today, we recorded [...] reports provider was going to check with [facility] [facility] about taking it since it can cause SOB. Please review and advise, GLYNN Montiel Jordan L, DO 06/28/2024 10:38 AM Signed Please call her window repairer office at [facility] and see if they are concerned with her shortness of breath and respirator symptoms potentially being secondary to SE from Amiodarone and if any options to change this anti arrhythmic on their end? DO Rodrigo Dow Brittany L, MA 06/28/2024 11:40 AM Signed Printed telephone encounter with cover sheet AND faxed to Dr. Hickey [phone]. Advised on cover sheet to respond with window repairer's recommendations. Will wait for fax back. Renea [...] NEC [D23 (more content not included)... Normal [facility] CNOVon 06-21-2024 CNOV Office Visit (FAMPWS ) MICHAEL MEIER ([id number]) 1940 F Date Time Provider Department 06/21/24 5:20 PM MICHAEL PUGA FAMPWS During your visit today, we recorded the following information about you: Temperature Pulse Respiration Blood pressure 97.7 degrees 64/minute 20/minute 160/70 Weight 100.2 kg Michael Puga, DO 06/27/2024 4:11 PM Signed CC: Michael Meier is a [...] and albuterol. She has been seen by Deburring Machine Operator as well as Dr. Hickey/Solar Sales Rep at [facility] for follow up after discharge home. She [...] ACETBLR/PROX FEM PROSTC AGRFT/ALGRFT Left 07/2016 ARTHRP Mervat CONDYLEANDPLATU MEDIALANDLAT COMPARTMENTS 11/15/2009 Knee replacement, total -Left - [facility] ARTHRP BARRYE CONDYLEANDPLATU MEDIALANDLAT COMPARTMENTS 12/30/2009 Right knee replaced COLONOSCOPY FLX DX W/COLLJ SPEC WHEN PFRMD 06/29/2017 Colonoscopy EGD 10/17/2020 EGD W/O [facility] SPEC VARICIES INJ 01/08/2022 EGD W/O [facility] SPEC VARICIES INJ 03/31/2024 Lito [...] - Mo (more content not included)... [facility]IER ([id number]) 1940 F Date Time Provider Department 06/06/24 MICHAEL PUGA [facility] During your visit today, we recorded the following information about you: Constance Ervin LPN 06/06/2024 11:54 AM Signed Pt calls for lab results done at [facility] on 06/02/24. Results are scanned in the [...] [L85.3] 12/01/2013 (more content not included)... Normal [facility] Albumin to globulin ratioOrd ered By: Michael Puga on 06-02-2024 Albumin/Globulin [Mass ratio] 1.0 {ratio} 0.9-2.4 [facility] Bilirubin, totalOrdered By: Michael Puga on 06-02-2024 Bilirubin [Mass/Vol] 0.60 mg/dL 0.20-1.00 [facility] Comment on above: For patients on eltr ombopag therapy, use of Dimension [place] TBIL is not recommended. Blood urea nitrogen (BUN)/cr eatinine ratioOrdered By: Michael Puga on 06-02-2024 Urea nitrogen/Creatinine [Mass ratio] 33.2 mg/mg High 10-20 [facility] Carbon dioxide measurementOr dered By: Michael Puga on 06-02-2024 CO2 [Moles/Vol] 29.0 mmol/L 21.0-32.0 [facility] Chloride measurementOrdered By: Michael Puga on 06-02-2024 Chloride [Moles/Vol] 99 mmol/L 98-107 [facility] Comprehensive Metabolic Prof ilon 06-02-2024 Albumin [Mass/Vol] 3.3 g/dL Normal 3.2-5.0 [facility] Comment on above: Performed By: #### L 500.4050 ####[facility] [address] [place], [address] Albumin/Globulin [Mass ratio] 1.0 {ratio} Normal 0.9-2.4 [facility] Comment on above: Performed By: #### L 500.4050 ####[facility] [address] [place], [address] ALK P 85 U/L Normal 45-117 [facility] Comment on above: Performed By: #### L 500.4050 ####[facility] [address] [place], [address] ALT [Catalytic activity/Vol] 84 U/L High 13-56 [facility] Comment on above: Performed By: #### L 500.4050 ####[facility] [address] [place], [address] AST [Catalytic activity/Vol] 51 U/L High 15-37 [facility] Comment on above: Performed By: #### L 500.4050 ####[facility] [address] [place], [address] Bilirubin [Mass/Vol] 0.60 mg/dL Normal 0.20-1.00 [facility] Comment on above: Result Comment: For patients on eltrombopag therapy, use of [place] TBIL is not recommended. Performed By: #### L 500.4050 ####[facility] [address] [place], [address] BUN/CRE 33.2 RATIO High 10-20 [facility] Comment on above: Performed By: #### L 500.4050 ####[facility] [address] [place], [address] CA,Total 9.1 mg/dL Normal 8.5-10.1 [facility] Comment on above: Performed By: #### L 500.4050 ####[facility] [address] [place], [address] Chloride [Moles/Vol] 99 mmol/L Normal 98-107 [facility] Comment on above: Performed By: #### L 500.4050 ####[facility] [address] [place], [address] CO2 [Moles/Vol] 29.0 mmol/L Normal 21.0-32.0 [facility] Comment on above: Performed By: #### L 500.4050 ####[facility] [address] [place], [address] Creatinine [Mass/Vol] 0.87 mg/dL Normal 0.55-1.02 [facility] Comment on above: Result Comment: The validity of the calculated GFR GFRAA in patients over70 years has not been determined. Clinical correlation isessential. Performed By: #### L 500.4050 ####[facility] [address] [place], [address] EST GFR - AA 80 mL/min Normal >60 [facility] Comment on above: Result Comment: Afri can Welsh GFR Calc Performed By: #### L 500.4050 ####[facility] [address] [place], [address] GAP 6 Normal 5-15 [facility] Comment on above: Performed By: #### L 500.4050 ####[facility] [address] [place], [address] GFR/1.73 sq M.predicted among non-blacks MDRD (S/P/Bld) [Vol rate/Area] 66 mL/min/{1.73_m2} Normal >60 [facility] Comment on above: Result Comment: Non- GFR Calc Performed By: #### L 500.4050 ####[facility] [address] [place], [address] Globulin (S) [Mass/Vol] 3.4 g/dL Normal 2.2-4.2 [facility] Comment on above: Performed By: #### L 500.4050 ####[facility] [address] [place], [address] Glucose [Mass/Vol] 99 mg/dL Normal 74-106 [facility] Comment on above: Performed By: #### L 500.4050 ####[facility] [address] [place], [address] Potassium [Moles/Vol] 5.1 mmol/L Normal 3.5-5.1 [facility] Comment on above: Performed By: #### L 500.4050 ####[facility] [address] [place], [address] Sodium [Moles/Vol] 133 mmol/L Low 136-145 [facility] Comment on above: Performed By: #### L 500.4050 ####[facility] [address] [place], [address] T PROT 6.7 g/dL Normal 6.4-8.2 [facility] Comment on above: Performed By: #### L 500.4050 ####[facility] [address] [place], [address] Urea nitrogen [Mass/Vol] 29 mg/dL High 7-18 [facility] Comment on above: Performed By: #### L 500.4050 ####[facility] [address] [place], [address] Estimated glomerular filtrat ion rate (GFR) AmericanOrdered By: Michael Puga on 06-02-2024 Estimated GFR (MDRD) Amer 80 mL/min >60 [facility] Comment on above: GFR Calc Glomerular filtration rate ( GFR) estimationOrdered By: Michael Puga on 06-02-2024 Estimated GFR (MDRD) Non-Af Amer 66 mL/min >60 [facility] Comment on above: Non- GFR Calc Glucose measurementOrdered B y: Michael Puga on 06-02-2024 Glucose [Mass/Vol] 99 mg/dL 74-106 [facility] Laboratory - Chemistry and C hemistry - challengeOrdered By: Michael Puga on 06-02-2024 AST [Catalytic activity/Vol] 51 U/L High 15-37 [facility] Potassium measurementOrdered By: Michael Puga on 06-02-2024 Potassium [Moles/Vol] 5.1 mmol/L 3.5-5.1 [facility] Serum anion gap measurementO rdered By: Michael Puga on 06-02-2024 Anion gap [Moles/Vol] 6 mmol/L 5-15 [facility] Serum globulin measurementOr dered By: Michael Puga on 06-02-2024 Globulin (S) [Mass/Vol] 3.4 g/dL 2.2-4.2 [facility] Serum or plasma alanine sprague otransferase (ALT) measurementOrdered By: Michael Puga on 06-02-2024 ALT [Catalytic activity/Vol] 84 U/L High 13-56 [facility] Serum or plasma albumin julee urement (mass/volume)Ordered By: Michael Puga on 06-02-2024 Albumin [Mass/Vol] 3.3 g/dL 3.2-5.0 [facility] Serum or plasma alkaline rachel sphatase measurementOrdered By: Michael Puga on 06-02-2024 ALP [Catalytic activity/Vol] 85 U/L 45-117 [facility] Serum or plasma calcium julee urement (mass/volume)Ordered By: Michael Puga on 06-02-2024 Calcium [Mass/Vol] 9.1 mg/dL 8.5-10.1 [facility] Serum or plasma creatinine m easurement (mass/volume)Ordered By: Michael Puga on 06-02-2024 Creatinine [Mass/Vol] 0.87 mg/dL 0.55-1.02 [facility] Comment on above: The validity of the calculated GFR & GFRAA in patients over 70 years has not been determined. Clinical correlation is essential. Serum or plasma urea nitroge n measurement (mass/volume)Ordered By: Michael Puga on 06-02-2024 Urea nitrogen [Mass/Vol] 29 mg/dL High 7-18 [facility] Sodium levelOrdered By: Susanna Puga on 06-02-2024 Sodium [Moles/Vol] 133 mmol/L Low 136-145 [facility] Total proteinOrdered By: Vance Puga on 06-02-2024 Protein [Mass/Vol] 6.7 g/dL 6.4-8.2 [facility] Cardiology Visit Reporton Cardiology Visit Report Normal [facility] Pacemaker Checkon 06-01-2024 Pacemaker Check Normal [facility] CNPNon 05-30-2024 CNPN Telephone (FAMPWS) MICHAEL MEIER ([id number]) 1940 F Date Time Provider Department 05/30/24 MICHAEL PUGA FAMPWS During your visit today, we recorded the following information about you: Loli Adamson RN 05/30/2024 8:31 AM Signed Pt reports she had a CMP done at [facility] on 05/25/24 to check her kidneys and glucose. We received a BNP and CBC from [facility] under labs. Do not see a CMP. Patient asking Key to review and advise. Key Portillo APRN.CARMELINA 05/31/2024 7:36 AM Signed I don't see CMP results either. Can we call [facility] and confirm this was drawn. If not, have her get it done. Thank you, Key Portillo APRN.Amanda Heath RN 05/31/2024 10:09 AM Signed Qing with [facility] calls in regards to below. CMP was not completed. Re-faxed ordered to [facility] lab and Qing will add a nurse visit for this week to collect specimen as soon as possible. GLYNN Montiel Alyson Taylor, APRN.CARMELINA 05/31/2024 10:45 AM Signed Noted. Thank you, Key Portillo APRN.[facility] Allergies As of Date: 05/30/2024 Noted Allergy [...] Solar Lentig (more content not included)... Normal [facility] BNP (brain natriuretic pepti de measurement)Ordered By: Michael Puga on 05-25-2024 Natriuretic peptide B (Bld) [Mass/Vol] 33.8 pg/mL 0-100 [facility] BNP,B-Type NATRIURETIC PEPTI Kenyatta 05-25-2024 Natriuretic peptide B (Bld) [Mass/Vol] 33.8 pg/mL Normal 0-100 [facility] Comment on above: Performed By: #### L 100.0500, L503.6620 ####[facility] [address] [place], [address] CBC-Complete Blood Cnt No Di ffon 05-25-2024 Erythrocyte distribution width (RBC) [Ratio] 15.5 % High 11.6-14.6 [facility] Comment on above: Performed By: #### L 100.0500, L503.6620 ####[facility] [address] [place], [address] Hematocrit (Bld) [Volume fraction] 37.3 % Normal 37-47 [facility] Comment on above: Performed By: #### L 100.0500, L503.6620 ####[facility] [address] [place], [address] Hemoglobin (Bld) [Mass/Vol] 12.6 g/dL Normal 12.0-15.0 [facility] Comment on above: Performed By: #### L 100.0500, L503.6620 ####[facility] [address] [place], [address] MCH (RBC) [Entitic mass] 28.4 pg Normal 27.0-32.0 [facility] Comment on above: Performed By: #### L 100.0500, L503.6620 ####[facility] [address] [place], [address] MCHC (RBC) [Mass/Vol] 33.8 g/dL Normal 32-36 [facility] Comment on above: Performed By: #### L 100.0500, L503.6620 ####[facility] [address] [place], [address] MCV (RBC) [Entitic vol] 84.0 fL Normal 81-99 [facility] Comment on above: Performed By: #### L 100.0500, L503.6620 ####[facility] [address] [place], [address] Platelet mean volume (Bld) [Entitic vol] 11.1 fL Normal 6.2-12.0 [facility] Comment on above: Performed By: #### L 100.0500, L503.20 ####[facility] [address] [place], [address] Platelets (Bld) [#/Vol] 256 10*3/uL Normal 150-450 [facility] Comment on above: Performed By: #### L 100.0500, L503.6620 ####[facility] [address] [place], [address] RBC (Bld) [#/Vol] 4.44 10*6/uL Normal 4.2-5.4 [facility] Comment on above: Performed By: #### L 100.0500, L503.6620 ####[facility] [address] [place], [address] RDW SD 47.2 fl High 35.1-43.9 [facility] Comment on above: Performed By: #### L 100.0500, L503.6620 ####[facility] [address] [place], [address] WBC (Bld) [#/Vol] 10.3 10*3/uL Normal 4.4-11.0 [facility] Comment on above: Performed By: #### L 100.0500, L503.6620 ####[facility] [address] [place], [address] CNPChasity 05-25-2024 CNPN Telephone (FAMPWS) MICHAEL MEIER ([id number]) 1940 F Date Time Provider Department 05/25/24 [facility] During your visit today, we recorded the following information about you: July Marcano, GLYNN 05/25/2024 9:51 AM Signed Bhavna MAKI CM with [facility] called in and reports Pt had been taken off her Hydrochlorothiazide per Cardiology for a while, but the last time she was in the hospital she was put back on 12.5 mg. She states the Pt is going to need a script called in if she is to be [facility]. I told her I didn't see the [...] morning. Please call and advise. Key Portillo APRN.STEREOPTIC PROJECTION TOPOGRAPHER 05/25/2024 10:05 AM Signed I would like patient to take medication and then recheck BP. BP was WNL at appointment on 05/11. I see from discharge instructions from [facility] that she was taking HCTZ at that time. I would recommend staying on HCTZ regimen at this. Rx sent to pharmacy. Does she still have cards appointment with Dr. Hickey on 06/01 -- if so, they can decide if they want to keep her on this medication or not at that time. Thank you, Key Portillo APRN.STEREOPTIC PROJECTION TOPOGRAPHER The following approved medication requests have been transmitted electronically. Requested Prescriptions Signed Prescriptions Disp Refills hydroCHLOROthiazide 12.5 mg capsule 90 capsule 0 Sig: Take 1 capsule by mouth once daily. Authorizing Provider: KEY PORTILLO APRN.STEREOPTIC PROJECTION TOPOGRAPHER Marisol Cano LPN 05/25/2024 10:17 AM Signed [...] for Visit: Patient Update [1234] Medication Question [9428] Order(s):hydroCHLOROthiazide 12.5 mg capsuleTake 1 capsule by [...] 100 m (more content not included)... Normal [facility] Erythrocyte distribution wid th ratioOrdered By: Michael Puga on 05-25-2024 Erythrocyte distribution width (RBC) [Ratio] 15.5 % High 11.6-14.6 [facility] Erythrocyte distribution wid th standard deviationOrdered By: Michael Puga on 05-25-2024 Erythrocyte distribution width (RBC) [Entitic vol] 47.2 fL High 35.1-43.9 [facility] Hematocrit Auto (Bld) [Volum e fraction]Ordered By: Michael Puga on 05-25-2024 Hematocrit (Bld) [Volume fraction] 37.3 % 37-47 [facility] Hemoglobin measurementOrdere d By: Michael Puga on 05-25-2024 Hemoglobin (Bld) [Mass/Vol] 12.6 g/dL 12.0-15.0 [facility] MCV (mean corpuscular volume ) determinationOrdered By: Michael Puga on 05-25-2024 MCV (RBC) [Entitic vol] 84.0 fL 81-99 [facility] Mean corpuscular hemoglobin (MCH) determinationOrdered By: Michael Puga on 05-25-2024 MCH (RBC) [Entitic mass] 28.4 pg 27.0-32.0 [facility] Mean corpuscular hemoglobin concentration (MCHC) determinationOrdered By: Michael Puga on 05-25-2024 MCHC (RBC) [Mass/Vol] 33.8 g/dL 32-36 [facility] Mean platelet volume determi nationOrdered By: Michael Puga on 05-25-2024 Platelet mean volume (Bld) [Entitic vol] 11.1 fL 6.2-12.0 [facility] Platelet countOrdered By: Nellie Puga on 05-25-2024 Platelets (Bld) [#/Vol] 256 10*3/uL 150-450 [facility] RBC Auto (Bld) [#/Vol]Ordere d By: Michael Puga on 05-25-2024 RBC (Bld) [#/Vol] 4.44 10*6/uL 4.2-5.4 [facility] White blood cell (WBC) count Ordered By: Michael Puga on 05-25-2024 WBC (Bld) [#/Vol] 10.3 10*3/uL 4.4-11.0 [facility] Bilirubin, Directon 05-19-19 25 Bilirubin.direct [Mass/Vol] 0.28 mg/dL Normal 0.00-0.30 [facility] Comment on above: Performed By: #### L 500.4050, L100.0500, L501.4700, L503.6620 ####[facility] [address] [place], [address] Priscila 05-19-2024 LORRI Telephone (FAMPWS) MICHAEL MEIER ([id number]) 1940 F Date Time Provider Department 05/19/24 MICHAEL PUGA FAMPWS During your visit today, we recorded the following information about you: Chloe Castro LPN 05/19/2024 12:22 PM Signed Pt calling for results of lab work she had done in her home yesterday, Results are I Epic. Please advise pt. CAROLINE Ramirez Alyson Taylor, APRN.STEREOPTIC PROJECTION TOPOGRAPHER 05/19/2024 2:40 PM Signed Please let patient [...] Cabrera LPN 05/19/2024 2:43 PM Signed Pt. Tameka Bee RN 05/22/2024 12:31 PM Signed Marifer nurse with [facility] calling regarding recently ordered lab orders. Information provided and lab orders faxed to [facility]. Tameka Marin RN Allergies As of [...] [I50.9] Order(s):NT PRO BNP [SQNTBNP] Order #: [id number] FUTURE COMPREHENSIVE METABOLIC PANEL [SQCMP] Order #: [id number] FUTURE Prescriptions as of 05/22/2024 - furosemide [...] 01/20/2007 09 (more content not included)... Normal [facility] BNP (brain natriuretic pepti de measurement)Ordered By: Michael Puga on 05-18-2024 Natriuretic peptide B (Bld) [Mass/Vol] 38.6 pg/mL 0-100 [facility] BNP,B-Type NATRIURETIC PEPTI Kenyatta 05-18-2024 Natriuretic peptide B (Bld) [Mass/Vol] 38.6 pg/mL Normal 0-100 [facility] Comment on above: Performed By: #### L 500.4050, L100.0500, L501.4700, L503.6620 ####[facility] [address] [place], [address] Bilirubin directOrdered By: Michael Puga on 05-18-2024 Bilirubin.direct [Mass/Vol] 0.28 mg/dL 0.00-0.30 [facility] CBC-Complete Blood Cnt No Di ffon 05-18-2024 Erythrocyte distribution width (RBC) [Ratio] 15.9 % High 11.6-14.6 [facility] Comment on above: Performed By: #### L 500.4050, L100.0500, L501.4700, L503.6620 ####[facility] [address] [place], [address] Hematocrit (Bld) [Volume fraction] 35.5 % Low 37-47 [facility] Comment on above: Performed By: #### L 500.4050, L100.0500, L501.4700, L503.6620 ####[facility] [address] [place], [address] Hemoglobin (Bld) [Mass/Vol] 11.6 g/dL Low 12.0-15.0 [facility] Comment on above: Performed By: #### L 500.4050, L100.0500, L501.4700, L503.6620 ####[facility] [address] [place], [address] MCH (RBC) [Entitic mass] 27.8 pg Normal 27.0-32.0 [facility] Comment on above: Performed By: #### L 500.4050, L100.0500, L501.4700, L503.6620 ####[facility] [address] [place], [address] MCHC (RBC) [Mass/Vol] 32.7 g/dL Normal 32-36 [facility] Comment on above: Performed By: #### L 500.4050, L100.0500, L501.4700, L503.6620 ####[facility] [address] [place], [address] MCV (RBC) [Entitic vol] 84.9 fL Normal 81-99 [facility] Comment on above: Performed By: #### L 500.4050, L100.0500, L501.4700, L503.6620 ####[facility] [address] [place], [address] Platelet mean volume (Bld) [Entitic vol] 11.0 fL Normal 6.2-12.0 [facility] Comment on above: Performed By: #### L 500.4050, L100.0500, L501.4700, L503.6620 ####[facility] [address] [place], [address] Platelets (Bld) [#/Vol] 263 10*3/uL Normal 150-450 [facility] Comment on above: Performed By: #### L 500.4050, L100.0500, L501.4700, L503.6620 ####[facility] [address] [place], [address] RBC (Bld) [#/Vol] 4.18 10*6/uL Low 4.2-5.4 [facility] Comment on above: Performed By: #### L 500.4050, L100.0500, L501.4700, L503.6620 ####[facility] [address] [place], [address] RDW SD 48.9 fl High 35.1-43.9 [facility] Comment on above: Performed By: #### L 500.4050, L100.0500, L501.4700, L503.6620 ####[facility] [address] [place], [address] WBC (Bld) [#/Vol] 9.2 10*3/uL Normal 4.4-11.0 [facility] Comment on above: Performed By: #### L 500.4050, L100.0500, L501.4700, L503.6620 ####[facility] [address] [place], [address] Comprehensive Metabolic Prof [facility] 05-18-2024 Albumin [Mass/Vol] 3.4 g/dL Normal 3.2-5.0 [facility] Comment on above: Performed By: #### L 500.4050, L100.0500, L501.4700, L503.6620 ####[facility] [address] [place], [address] Albumin/Globulin [Mass ratio] 1.1 {ratio} Normal 0.9-2.4 [facility] Comment on above: Performed By: #### L 500.4050, L100.0500, L501.4700, L503.6620 ####[facility] [address] [place], [address] ALK P 77 U/L Normal 45-117 [facility] Comment on above: Performed By: #### L 500.4050, L100.0500, L501.4700, L503.6620 ####[facility] [address] [place], [address] ALT [Catalytic activity/Vol] 30 U/L Normal 13-56 [facility] Comment on above: Performed By: #### L 500.4050, L100.0500, L501.4700, L503.6620 ####[facility] [address] [place], [address] AST [Catalytic activity/Vol] 25 U/L Normal 15-37 [facility] Comment on above: Performed By: #### L 500.4050, L100.0500, L501.4700, L503.6620 ####[facility] [address] [place], [address] Bilirubin [Mass/Vol] 1.00 mg/dL Normal 0.20-1.00 [facility] Comment on above: Result Comment: For patients on eltrombopag therapy, use of Dimension [place] TBIL is not recommended. Performed By: #### L 500.4050, L100.0500, L501.4700, L503.6620 ####[facility] [address] [place], [address] BUN/CRE 26.7 RATIO High 10-20 [facility] Comment on above: Performed By: #### L 500.4050, L100.0500, L501.4700, L503.6620 ####[facility] [address] [place], [address] CA,Total 9.0 mg/dL Normal 8.5-10.1 [facility] Comment on above: Performed By: #### L 500.4050, L100.0500, L501.4700, L503.6620 ####[facility] [address] [place], [address] Chloride [Moles/Vol] 90 mmol/L Low 98-107 [facility] Comment on above: Performed By: #### L 500.4050, L100.0500, L501.4700, L503.6620 ####[facility] [address] [place], [address] CO2 [Moles/Vol] 29.0 mmol/L Normal 21.0-32.0 [facility] Comment on above: Performed By: #### L 500.4050, L100.0500, L501.4700, L503.6620 ####[facility] [address] [place], [address] Creatinine [Mass/Vol] 1.05 mg/dL High 0.55-1.02 [facility] Comment on above: Result Comment: The validity of the calculated GFR GFRAA in patients over70 years has not been determined. Clinical correlation isessential. Performed By: #### L 500.4050, L100.0500, L501.4700, L503.6620 ####[facility] [address] [place], [address] EST GFR - AA 64 mL/min Normal >60 [facility] Comment on above: Result Comment: Afri can Welsh GFR Calc Performed By: #### L 500.4050, L100.0500, L501.4700, L503.6620 ####[facility] [address] [place], [address] GAP 9 Normal 5-15 [facility] Comment on above: Performed By: #### L 500.4050, L100.0500, L501.4700, L503.6620 ####[facility] [address] [place], [address] GFR/1.73 sq M.predicted among non-blacks MDRD (S/P/Bld) [Vol rate/Area] 53 mL/min/{1.73_m2} Low >60 [facility] Comment on above: Result Comment: Non- GFR Calc Performed By: #### L 500.4050, L100.0500, L501.4700, L503.6620 ####[facility] [address] [place], [address] Globulin (S) [Mass/Vol] 3.1 g/dL Normal 2.2-4.2 [facility] Comment on above: Performed By: #### L 500.4050, L100.0500, L501.4700, L503.6620 ####[facility] [address] [place], [address] Glucose [Mass/Vol] 99 mg/dL Normal 74-106 [facility] Comment on above: Performed By: #### L 500.4050, L100.0500, L501.4700, L503.6620 ####[facility] [address] [place], [address] Potassium [Moles/Vol] 4.0 mmol/L Normal 3.5-5.1 [facility] Comment on above: Performed By: #### L 500.4050, L100.0500, L501.4700, L503.6620 ####[facility] [address] [place], [address] Sodium [Moles/Vol] 128 mmol/L Low 136-145 [facility] Comment on above: Performed By: #### L 500.4050, L100.0500, L501.4700, L503.6620 ####[facility] [address] [place], [address] T PROT 6.5 g/dL Normal 6.4-8.2 [facility] Comment on above: Performed By: #### L 500.4050, L100.0500, L501.4700, L503.6620 ####[facility] [address] [place], [address] Urea nitrogen [Mass/Vol] 28 mg/dL High 7-18 [facility] Comment on above: Performed By: #### L 500.4050, L100.0500, L501.4700, L503.6620 ####[facility] [address] [place], [address] Erythrocyte distribution wid th ratioOrdered By: Michael Puga on 05-18-2024 Erythrocyte distribution width (RBC) [Ratio] 15.9 % High 11.6-14.6 [facility] Erythrocyte distribution wid th standard deviationOrdered By: Michael Puga on 05-18-2024 Erythrocyte distribution width (RBC) [Entitic vol] 48.9 fL High 35.1-43.9 [facility] Hematocrit Auto (Bld) [Volum e fraction]Ordered By: Michael Puga on 05-18-2024 Hematocrit (Bld) [Volume fraction] 35.5 % Low 37-47 [facility] Hemoglobin measurementOrdere d By: Michael Puga on 05-18-2024 Hemoglobin (Bld) [Mass/Vol] 11.6 g/dL Low 12.0-15.0 [facility] MCV (mean corpuscular volume ) determinationOrdered By: Michael Puga on 05-18-2024 MCV (RBC) [Entitic vol] 84.9 fL 81-99 [facility] Mean corpuscular hemoglobin (MCH) determinationOrdered By: Michael Puga on 05-18-2024 MCH (RBC) [Entitic mass] 27.8 pg 27.0-32.0 [facility] Mean corpuscular hemoglobin concentration (MCHC) determinationOrdered By: Michael Puga on 05-18-2024 MCHC (RBC) [Mass/Vol] 32.7 g/dL 32-36 [facility] Mean platelet volume determi nationOrdered By: Michael Puga on 05-18-2024 Platelet mean volume (Bld) [Entitic vol] 11.0 fL 6.2-12.0 [facility] Platelet countOrdered By: Nellie Puga on 05-18-2024 Platelets (Bld) [#/Vol] 263 10*3/uL 150-450 [facility] RBC Auto (Bld) [#/Vol]Ordere d By: Michael Puga on 05-18-2024 RBC (Bld) [#/Vol] 4.18 10*6/uL Low 4.2-5.4 [facility] White blood cell (WBC) count Ordered By: Michael Puga on 05-18-2024 WBC (Bld) [#/Vol] 9.2 10*3/uL 4.4-11.0 [facility] CNPNon 05-16-2024 CNPN Telephone (FAMPWS) MICHAEL MEEIR ([id number]) 1940 F Date Time Provider Department 05/16/24 MICHAEL PUGA [facility] During your visit today, we recorded the following information about you: Amanda Pratt RN 05/16/2024 10:26 AM Signed Bhavna with [facility] calls to report duplicate therapy between lasix and spironolactone and lasix and hydralazine. Bhavna is asking if provider wants all medications continued. Hydralazine and Spironolactone are on current medication list but prescription not sent to pharmacy. Please review and advise. Bhavna is requesting a call back at [phone]. GLYNN Montiel Jordan L, DO 05/17/2024 9:02 AM Signed Please clarify with pharmacy and patient her current diuretic/BLOOD PRESSURE medications that she is picking up and taking Marcie Rodriguez LPN 05/17/2024 9:50 AM Signed Phoned [facility] pharmacy with clarification on current meds. Spironolactone 25 mg daily was prescribed by the [facility] also hydralazine 25 mg was prescribed by [facility]. Lasix 20 mg was just prescribed by Key Portillo, then Lasix 40 mg was prescribed by [facility] May 02. Left message with Bhavna [facility] HUE about above information. Please review and advise further. CAROLINE Mcmullen Jordan L, DO 05/17/2024 12:32 PM Signed Please clarify what [...] if she can. Pt will go to [place] and get it drawn in the morning. [...] as possible after her labs are resulted. July Marcano, GLYNN 05/18/2024 10:04 AM Signed Bhavna MAKI [facility] called in and reports Pt isn't [...] she was able to drawn. Key Portillo APRN.STEREOPTIC PROJECTION TOPOGRAPHER 05/18/2024 10:50 AM Signed Most important is CMP to have drawn if able. Agree with below. Pt needs to discontinue lasix all together. This was ordered by [facility] after recent admission for new onset CHF exacerbation. Initially ordered for 40 mg daily, I decreased to 20 mg daily after kidney function was so poor and told pt to repeat labs in 5 days with plan to discontinue all together if swelling and weight gain remained stable with decreased. Thank you, Key Bond (more content not included)... Normal [facility] 05-12-2024 CARMELINAN Telephone (FAMPWS) MICHAEL MEIER ([id number]) 1940 F Date Time Provider Department 05/12/24 KEY PORTILLO During your visit today, we recorded the following information about you: Sultana Catalan RN 05/12/2024 1:21 PM Signed Pt calling [...] that time. Pt verbalizes understanding. Key Portillo APRN.STEREOPTIC PROJECTION TOPOGRAPHER 05/12/2024 2:23 PM Signed Agree with below. We are repeating BNP lab work in 5-7 days as well to check for this. Thank you, Key Portillo APRN.STEREOPTIC PROJECTION TOPOGRAPHER Allergies As of Date: 05/12/2024 Noted Allergy [...] Fully Assessed Reason for Visit: Patient Question [5537] Prescriptions as of 05/12/2024 - furosemide (LASIX) [...] [L82.0] 12/01/2013 (more content not included)... [facility] ([id number]) 1940 F Date Time Provider Department 05/12/24 [...] yesterday in appointment but [facility] [place] [facility] she went. Key Portillo APRN.CNP 05/12/2024 [...] 0 HEPATIC FUNCTION PNL [SQHFP] Order #: [id number] FUTURE COMPLETE BLOOD COUNT AND DIFFERENTIAL [SQCBCDIF] Order #: [id number] FUTURE NT PRO BNP [SQNTBNP] Order #: [id number] FUTURE LORazepam (ATIVAN) 0.5 mgTake 1 tablet [...] HCl (OPT (more content not included)... Normal [facility] CBC W Auto Differential pane l (Bld)on 05-11-2024 Basophils (Bld) [#/Vol] 0.09 10*3/uL [facility] Basophils/100 WBC (Bld) 0.7 % [facility] Differential cell count method Nom (Bld) Auto [facility] Eosinophils (Bld) [#/Vol] 0.21 10*3/uL [facility] Eosinophils/100 WBC (Bld) 1.7 % [facility] Erythrocyte distribution width (RBC) [Ratio] 16.6 % High 11.5 - 15.0 % [facility] Hematocrit (Bld) [Volume fraction] 42.0 % 36.0 - 46.0 % [facility] Hemoglobin (Bld) [Mass/Vol] 13.4 g/dL 11.5 - 15.5 g/dL [facility] Immature granulocytes (Bld) [#/Vol] 0.05 10*3/uL [facility] Immature granulocytes/100 WBC (Bld) 0.4 % [facility] Interpretation and review of laboratory results Abnormal [facility] Lymphocytes (Bld) [#/Vol] 1.48 10*3/uL [facility] Lymphocytes/100 WBC (Bld) 12.3 % [facility] MCH (RBC) [Entitic mass] 27.2 pg 26.0 - 34.0 pg [facility] MCHC (RBC) [Mass/Vol] 31.9 g/dL 30.5 - 36.0 g/dL [facility] MCV (RBC) [Entitic vol] 85.2 fL 80.0 - 100.0 fL [facility] Monocytes (Bld) [#/Vol] 1.05 10*3/uL [facility] Monocytes/100 WBC (Bld) 8.7 % [facility] Neutrophils (Bld) [#/Vol] 9.14 10*3/uL High [facility] Neutrophils/100 WBC (Bld) 76.2 % [facility] Nucleated RBC (Bld) [#/Vol] NINF [facility] Nucleated RBC/100 WBC (Bld) [Ratio] 0.0 % /100 WBC [facility] Platelet mean volume (Bld) [Entitic vol] 11.3 fL 9.0 - 12.7 fL [facility] Platelets (Bld) [#/Vol] 346 10*3/uL [facility] RBC (Bld) [#/Vol] 4.93 10*6/uL 3.90 - 5.20 m/uL [facility] WBC (Bld) [#/Vol] 12.02 10*3/uL High [facility] Basophils (Bld) [#/Vol] 0.09 10*3/uL Normal <0.11 [facility] Comment on above: Order Comment: Speci men Type: BLOOD SPECIMENOrdering Facility: [facility] Address: [address] [place] [address] Performed By: #### 5 7021-8 ####[facility] LABCLIA [id number] [place] [address] [place] Basophils/100 WBC (Bld) 0.7 % Normal [facility] Comment on above: Order Comment: Speci men Type: BLOOD SPECIMENOrdering Facility: [facility] Address: [address] [place] [address] Performed By: #### 5 7021-8 ####[facility] LABCLIA [id number] [place] [address] [place] Differential cell count method Nom (Bld) Auto Normal [facility] Comment on above: Order Comment: Speci men Type: BLOOD SPECIMENOrdering Facility: [facility] Address: [address] [place] [address] Performed By: #### 5 7021-8 ####[facility] LABCLIA [id number] [place] [address] [place] Eosinophils (Bld) [#/Vol] 0.21 10*3/uL Normal <0.46 [facility] Comment on above: Order Comment: Speci men Type: BLOOD SPECIMENOrdering Facility: [facility] Address: [address] [place] [address] Performed By: #### 5 7021-8 ####[facility] LABIA [id number] [place] [address] [place] Eosinophils/100 WBC (Bld) 1.7 % Normal [facility] Comment on above: Order Comment: Speci men Type: BLOOD SPECIMENOrdering Facility: [facility] Address: [address] [place] [address] Performed By: #### 5 7021-8 ####[facility] LABIA [id number] [place] [address] [place] Erythrocyte distribution width (RBC) [Ratio] 16.6 % High 11.5-15.0 [facility] Comment on above: Order Comment: Speci men Type: BLOOD SPECIMENOrdering Facility: [facility] Address: [address] [place] [address] Performed By: #### 5 7021-8 ####[facility] LABCLIA [id number] [place] [address] [place] Hematocrit (Bld) [Volume fraction] 42.0 % Normal 36.0-46.0 [facility] Comment on above: Order Comment: Speci men Type: BLOOD SPECIMENOrdering Facility: [facility] Address: [address] [place] [address] Performed By: #### 5 7021-8 ####[facility] LABCLIA [id number] [place] [address] [place] Hemoglobin (Bld) [Mass/Vol] 13.4 g/dL Normal 11.5-15.5 [facility] Comment on above: Order Comment: Speci men Type: BLOOD SPECIMENOrdering Facility: [facility] Address: [address] [place] [address] Performed By: #### 5 7021-8 ####[facility] LABCLIA [id number] [place] [address] [place] Immature granulocytes (Bld) [#/Vol] 0.05 10*3/uL Normal <0.10 [facility] Comment on above: Order Comment: Speci men Type: BLOOD SPECIMENOrdering Facility: [facility] Address: [address] [place] [address] Performed By: #### 5 7021-8 ####[facility] LABCLIA [id number] [place] [address] [place] Immature granulocytes/100 WBC (Bld) 0.4 % Normal [facility] Comment on above: Order Comment: Speci men Type: BLOOD SPECIMENOrdering Facility: [facility] Address: [address] [place] [address] Performed By: #### 5 7021-8 ####[facility] LABCLIA [id number] [place] [address] [place] Lymphocytes (Bld) [#/Vol] 1.48 10*3/uL Normal 1.00-4.00 [facility] Comment on above: Order Comment: Speci men Type: BLOOD SPECIMENOrdering Facility: [facility] Address: [address] [place] [address] Performed By: #### 5 7021-8 ####[facility] LABIA [id number] [place] [address] [place] Lymphocytes/100 WBC (Bld) 12.3 % Normal [facility] Comment on above: Order Comment: Speci men Type: BLOOD SPECIMENOrdering Facility: [facility] Address: [address] [place] [address] Performed By: #### 5 7021-8 ####[facility] LABIA [id number] [place] [address] [place] MCH (RBC) [Entitic mass] 27.2 pg Normal 26.0-34.0 [facility] Comment on above: Order Comment: Speci men Type: BLOOD SPECIMENOrdering Facility: [facility] Address: [address] [place] [address] Performed By: #### 5 7021-8 ####[facility] [id number] [place] [address] [place] MCHC (RBC) [Mass/Vol] 31.9 g/dL Normal 30.5-36.0 [facility] Comment on above: Order Comment: Speci men Type: BLOOD SPECIMENOrdering Facility: [facility] Address: [address] [place] [address] Performed By: #### 5 7021-8 ####[facility] LABIA [id number] [place] [address] [place] MCV (RBC) [Entitic vol] 85.2 fL Normal 80.0-100.0 [facility] Comment on above: Order Comment: Speci men Type: BLOOD SPECIMENOrdering Facility: [facility] Address: [address] [place] [address] Performed By: #### 5 7021-8 ####[facility] LABIA [id number] [place] [id number] [place] Monocytes (Bld) [#/Vol] 1.05 10*3/uL High <0.87 [facility] Comment on above: Order Comment: Speci men Type: BLOOD SPECIMENOrdering Facility: [facility] Address: [address] [place] [address] Performed By: #### 5 7021-8 ####[facility] LABCLIA [id number] [place] [address] [place] Monocytes/100 WBC (Bld) 8.7 % Normal [facility] Comment on above: Order Comment: Speci men Type: BLOOD SPECIMENOrdering Facility: [facility] Address: [address] [place] [address] Performed By: #### 5 7021-8 ####[facility] LABCLIA [id number] [place] [address] [place] Neutrophils (Bld) [#/Vol] 9.14 10*3/uL High 1.45-7.50 [facility] Comment on above: Order Comment: Speci men Type: BLOOD SPECIMENOrdering Facility: [facility] Address: [address] [place] [address] Performed By: #### 5 7021-8 ####[facility] LABCLIA [id number] [place] [address] [place] Neutrophils/100 WBC (Bld) 76.2 % Normal [facility] Comment on above: Order Comment: Speci men Type: BLOOD SPECIMENOrdering Facility: [facility] Address: [address] [place] [address] Performed By: #### 5 7021-8 ####[facility] LABCLIA [id number] [place] [address] [place] Nucleated RBC (Bld) [#/Vol] 10*3/uL Normal <0.01 [facility] Comment on above: Order Comment: Speci men Type: BLOOD SPECIMENOrdering Facility: [facility] Address: [address] [place] [address] Performed By: #### 5 7021-8 ####[facility] LABCLIA [id number] [place] [address] [place] Nucleated RBC/100 WBC (Bld) [Ratio] 0.0 /100 WBC Normal [facility] Comment on above: Order Comment: Speci men Type: BLOOD SPECIMENOrdering Facility: [facility] Address: [address] [place] [address] Performed By: #### 5 7021-8 ####[facility] LABIA [id number] [place] [address] [place] Platelet mean volume (Bld) [Entitic vol] 11.3 fL Normal 9.0-12.7 [facility] Comment on above: Order Comment: Speci men Type: BLOOD SPECIMENOrdering Facility: [facility] Address: [address] [place] [address] Performed By: #### 5 7021-8 ####[facility] LABIA [id number] [place] [address] [place] Platelets (Bld) [#/Vol] 346 10*3/uL Normal 150-400 [facility] Comment on above: Order Comment: Speci men Type: BLOOD SPECIMENOrdering Facility: [facility] Address: [address] [place] [address] Performed By: #### 5 7021-8 ####[facility] LABCLIA [id number] [place] [address] [place] RBC (Bld) [#/Vol] 4.93 10*6/uL Normal 3.90-5.20 [facility] Comment on above: Order Comment: Speci men Type: BLOOD SPECIMENOrdering Facility: [facility] Address: [address] [place] [address] Performed By: #### 5 7021-8 ####[facility] LABCLIA [id number] [place] [id number] [place] WBC (Bld) [#/Vol] 12.02 10*3/uL High 3.70-11.00 [facility] Comment on above: Order Comment: Speci men Type: BLOOD SPECIMENOrdering Facility: [facility] Address: [address] [place] [address] Performed By: #### 5 7021-8 ####[facility] [id number] [place] [id number] [place] CNOVon 05-11-2024 CNOV Office Visit (FAMPWS ) MICHAEL MEIER ([id number]) 1940 F Date Time Provider Department 05/11/24 1:00 PM [facility] During your visit today, we recorded the following information about you: Pulse Blood pressure Weight 60/minute 130/58 100.9 kg Key Portillo APRN.STEREOPTIC PROJECTION TOPOGRAPHER 05/11/2024 2:08 PM Signed Chief Complaint Patient presents with: Transition Of Care: Was i wfor chf flae was discharged on 05/02/24 HPI Michael J Kvngyuko is a 84 year old female who presents here today for Above Complaints. Michael is an established patient of Dr. Edd DO. Concerns today... Hospital discharge -- [facility] hospital admission from 04/30-05/02 d/t hypoxia and [...] ACETBLR/PROX FEM PROSTC AGRFT/ALGRFT Left 07/2016 ARTHRP Mervat CONDYLEANDPLATU MEDIALANDLAT COMPARTMENTS 11/15/2009 Knee replacement, total -Left - [facility] ARTHRP BARRYE CONDYLEANDPLATU MEDIALANDLAT COMPARTMENTS 12/30/2009 Right knee replaced COLONOSCOPY FLX DX W/COLLJ SPEC WHEN PFRMD 06/29/2017 Colonoscopy EGD 10/17/2020 EGD W/O [facility] SPEC VARICIES INJ 01/08/2022 EGD W/O [facility] SPEC VARICIES INJ 03/31/2024 Lito [...] tablet by (more content not included)... Normal [facility] Comprehensive metabolic 2000 panelon 05-11-2024 Albumin [Mass/Vol] 4.1 g/dL Normal 3.9-4.9 [facility] Comment on above: Order Comment: Speci men Type: BLOOD SPECIMENOrdering Facility: [facility] Address: [address] [place] [address] Performed By: #### 2 4323-8, 3016-3, 54727-0, 3024-7 ####[facility] LABCLIA [id number] [place] [address] [place] ALP [Catalytic activity/Vol] 98 U/L Normal 34-123 [facility] Comment on above: Order Comment: Speci men Type: BLOOD SPECIMENOrdering Facility: [facility] Address: [address] [place] [address] Performed By: #### 2 4323-8, 3016-3, 06439-1, 3024-7 ####[facility] LABCLIA [id number] [place] [address] [place] ALT [Catalytic activity/Vol] 26 U/L Normal 7-38 [facility] Comment on above: Order Comment: Speci men Type: BLOOD SPECIMENOrdering Facility: [facility] Address: [address] [place] [address] Performed By: #### 2 4323-8, 3016-3, 29363-6, 3024-7 ####[facility] LABIA [id number] [place] [address] [place] Anion gap [Moles/Vol] 15 mmol/L Normal 8-15 [facility] Comment on above: Order Comment: Speci men Type: BLOOD SPECIMENOrdering Facility: [facility] Address: [address] [place] [address] Performed By: #### 2 4323-8, 3016-3, 93833-7, 3024-7 ####[facility] LABIA [id number] [place] [address] [place] AST [Catalytic activity/Vol] 29 U/L Normal 13-35 [facility] Comment on above: Order Comment: Speci men Type: BLOOD SPECIMENOrdering Facility: [facility] Address: [address] [place] [address] Performed By: #### 2 4323-8, 3016-3, 73239-3, 3024-7 ####[facility] LABCLIA [id number] [place] [address] [place] Bilirubin [Mass/Vol] 0.8 mg/dL Normal 0.2-1.3 [facility] Comment on above: Order Comment: Speci men Type: BLOOD SPECIMENOrdering Facility: [facility] Address: [address] [place] [address] Performed By: #### 2 4323-8, 3016-3, 88052-9, 3024-7 ####[facility] LABCLIA [id number] [facility] [place] [address] [place] Calcium [Mass/Vol] 9.4 mg/dL Normal 8.5-10.2 [facility] Comment on above: Order Comment: Speci men Type: BLOOD SPECIMENOrdering Facility: [facility] Address: [address] [place] [address] Performed By: #### 2 4323-8, 3016-3, 18271-7, 3024-7 ####[facility] LABCLIA [id number] [place] [address] [place] Chloride [Moles/Vol] 95 mmol/L Low 98-107 [facility] Comment on above: Order Comment: Speci men Type: BLOOD SPECIMENOrdering Facility: [facility] Address: [address] [place] [address] Performed By: #### 2 4323-8, 3016-3, 28632-2, 3024-7 ####[facility] LABCLIA [id number] [facility] [place] [address] [place] CO2 [Moles/Vol] 25 mmol/L Normal 22-30 [facility] Comment on above: Order Comment: Speci men Type: BLOOD SPECIMENOrdering Facility: [facility] Address: [address] [place] [address] Performed By: #### 2 4323-8, 3016-3, 03214-4, 3024-7 ####[facility] LABCLIA [id number] [facility] [address] [place] Creatinine [Mass/Vol] 1.76 mg/dL High 0.58-0.96 [facility] Comment on above: Order Comment: Lori mosqueda Type: BLOOD SPECIMENOrdering Facility: [facility] Address: [address] [place] [address] Performed By: #### 2 4323-8, 3016-3, 60498-6, 3024-7 ####[facility] LABCLIA [id number] [place] [address] [place] Creatinine and Glomerular filtration rate.predicted panel (S/P/Bld) 28 mL/min/1.73m??? Low >=60 [facility] Comment on above: Order Comment: Lori mosqueda Type: BLOOD SPECIMENOrdering Facility: [facility] Address: [address] [place] [address] Result Comment: Bina mated Glomerular Filtration Rate [...] GFR. Performed By: #### 2 4323-8, 3016-3, 36141-0, 3024-7 ####[facility] LABCLIA [id number] [place] [id number] [place] Glucose [Mass/Vol] 127 mg/dL High 74-99 [facility] Comment on above: Order Comment: Lori mosqueda Type: BLOOD SPECIMENOrdering Facility: [facility] Address: [address] [place] [address] Result Comment: The [place] Diabetes Association (ADA) provides guidance for cutoff [...] Standards of Medical Care in Diabetes 2016, [place] Diabetes Association. Diabetes Care. 2016.39(Suppl 1). Performed By: #### 2 4323-8, 3016-3, 13873-0, 3024-7 ####[facility] LABCLIA [id number] [place] [address] [place] Potassium [Moles/Vol] 4.6 mmol/L Normal 3.7-5.1 [facility] Comment on above: Order Comment: Speci men Type: BLOOD SPECIMENOrdering Facility: [facility] Address: [address] [place] [address] Performed By: #### 2 4323-8, 3016-3, 17169-6, 3027 ####[facility] LABCLIA [id number] [place] [address] [place] Protein [Mass/Vol] 7.1 g/dL Normal 6.3-8.0 [facility] Comment on above: Order Comment: Octaviai jaylin Type: BLOOD SPECIMENOrdering Facility: [facility] Address: [address] [place] [address] Performed By: #### 2 4323-8, 3016-3, 92881-1, 7 ####[facility] LABCLIA [id number] [place] [address] [place] Sodium [Moles/Vol] 135 mmol/L Low 136-144 [facility] Comment on above: Order Comment: Speci men Type: BLOOD SPECIMENOrdering Facility: [facility] Address: [address] [place] [address] Performed By: #### 2 4323-8, 3016-3, 88683-3, 3024-7 ####[facility] LABCLIA [id number] [place] [id number] [place] Urea nitrogen [Mass/Vol] 42 mg/dL High 7-21 [facility] Comment on above: Order Comment: Speci men Type: BLOOD SPECIMENOrdering Facility: [facility] Address: [address] [place] [address] Performed By: #### 2 4323-8, 3016-3, 09655-7, 3024-7 ####[facility] LABIA [id number] [place] [address] [place] NT-proBNP SerPl-mCncon 05-11 Natriuretic peptide.B prohormone N-Terminal [Mass/Vol] 117 pg/mL Normal <450 [facility] Comment on above: Order Comment: Speci men Type: BLOOD SPECIMENOrdering Facility: [facility] Address: [address] [place] [address] Performed By: #### 2 4323-8, 3016-3, 16297-7, 3024-7 ####[facility] [id number] [place] [address] [place] T4 Free SerPl-mCncon 025 Free T4 [Mass/Vol] 2.0 ng/dL High 0.9-1.7 [facility] Comment on above: Order Comment: Speci men Type: BLOOD SPECIMENOrdering Facility: [facility] Address: [address] [place] [address] Performed By: #### 2 4323-8, 3016-3, 61618-6, 3024-7 ####[facility] [id number] [place] [address] [place] TSH SerPl-aCncon 05-11-2024 TSH Qn 2.320 m[IU]/L Normal 0.270-4.20 0 [facility] Comment on above: Order Comment: Speci men Type: BLOOD SPECIMENOrdering Facility: [facility] Address: [address] [place] [address] Performed By: #### 2 4323-8, 3016-3, 40674-2, 3024-7 ####[facility] JONAS [id number] ADAN[place]ley [place] [id number] [place] CARMELINANon 05-08-2024 CNPN Telephone (FAMPWS) MICHAEL MEIER ([id number]) 1940 F Date Time Provider Department 05/08/24 [facility] During your visit today, we recorded the following information about you: Amanda Pratt RN 05/08/2024 9:01 AM Signed Marifer with [facility] calls to let provider know that [...] Will address then. Thank you, Key Portillo APRN.STEREOPTIC PROJECTION TOPOGRAPHER Allergies As of Date: 05/08/2024 Noted Allergy [...] Date Reviewed: 04/10/2024 Reviewed by: Sharon Jarrett APRN.STEREOPTIC PROJECTION TOPOGRAPHER - Fully Assessed Reason for Visit: Patient [...] Hyperlipidemia [E78 (more content not included)... Normal [facility] CNPNon 05-05-2024 CNPN Telephone (FAMPWS) MICHAEL MEIER ([id number]) 1940 F Date Time Provider Department 05/05/24 MICHAEL PUGA FAMPWS During your visit today, we recorded the following information about you: July Marcano RN 05/05/2024 4:02 PM Signed Sergio PT with [facility] called in and reports they will [...] Date Reviewed: 04/10/2024 Reviewed by: Sharon Jarrett APRN.STEREOPTIC PROJECTION TOPOGRAPHER - Fully Assessed Reason for Visit: Home [...] [R73.01] 11/10/2016 (more content not included)... Normal [facility] CNPNon 05-04-2024 CNPN Telephone (FAMPWS) MICHAEL MEIER ([id number]) 1940 F Date Time Provider Department 05/04/24 [facility] During your visit today, we recorded the following information about you: Aly Tolentino LPN 05/04/2024 2:34 PM Signed Suah from [facility] calling with plan of care. Only [...] Date Reviewed: 04/10/2024 Reviewed by: Sharon Jarrett APRN.STEREOPTIC PROJECTION TOPOGRAPHER - Fully Assessed Reason for Visit: Home [...] BMI 38.0-38.9,a (more content not included)... Normal [facility] Absolute neutrophil countOrd ered By: Jonny Vicente on 05-02-2024 Neutrophils (Bld) [#/Vol] 4.4 10*3/uL 2.0-7.7 [facility] Basic Metabolic Profile (BMP )on 05-02-2024 BUN/CRE 29.7 RATIO High 10-20 [facility] Comment on above: Performed By: #### L 100.0100, L500.2500 ####[facility] [address] [facility] [place], [address] CA,Total 8.7 mg/dL Normal 8.5-10.1 [facility] Comment on above: Performed By: #### L 100.0100, L500.2500 ####[facility] [address] [place], [address] Chloride [Moles/Vol] 100 mmol/L Normal 98-107 [facility] Comment on above: Performed By: #### L 100.0100, L500.2500 ####[facility] [address] [place], [address] CO2 [Moles/Vol] 33.0 mmol/L High 21.0-32.0 [facility] Comment on above: Performed By: #### L 100.0100, L500.2500 ####[facility] [address] [place], [address] Creatinine [Mass/Vol] 0.74 mg/dL Normal 0.55-1.02 [facility] Comment on above: Result Comment: The validity of the calculated GFR GFRAA in patients over70 years has not been determined. Clinical correlation isessential. Performed By: #### L 100.0100, L500.2500 ####[facility] [address] [place], [address] ECRCL 63.05 ml/min Normal [facility] Comment on above: Performed By: #### L 100.0100, L500.2500 ####[facility] [address] [place], [address] EST GFR - AA 96 mL/min Normal >60 [facility] Comment on above: Result Comment: Afri can Welsh GFR Calc Performed By: #### L 100.0100, L500.2500 ####[facility] [address] [place], [address] GAP 7 Normal 5-15 [facility] Comment on above: Performed By: #### L 100.0100, L500.2500 ####[facility] [address] [place], [address] GFR/1.73 sq M.predicted among non-blacks MDRD (S/P/Bld) [Vol rate/Area] 80 mL/min/{1.73_m2} Normal >60 [facility] Comment on above: Result Comment: Non- GFR Calc Performed By: #### L 100.0100, L500.2500 ####[facility] [address] [place], [address] Glucose [Mass/Vol] 109 mg/dL High 74-106 [facility] Comment on above: Result Comment: Fast ing Glucose result from 100 to 125 mg/dLsuggests IMPAIRED HOMEOSTASIS per A.D.A. criteria. Performed By: #### L 100.0100, L500.2500 ####[facility] [address] [place], [address] Potassium [Moles/Vol] 3.3 mmol/L Low 3.5-5.1 [facility] Comment on above: Performed By: #### L 100.0100, L500.2500 ####[facility] [address] [place], [address] Sodium [Moles/Vol] 139 mmol/L Normal 136-145 [facility] Comment on above: Performed By: #### L 100.0100, L500.2500 ####[facility] [address] [place], [address] Urea nitrogen [Mass/Vol] 22 mg/dL High 7-18 [facility] Comment on above: Performed By: #### L 100.0100, L500.2500 ####[facility] [address] [place], [address] Basophil percentageOrdered B y: Jonny Vicente on 05-02-2024 Basophils/100 WBC (Bld) 0.7 % 0-1 [facility] Blood urea nitrogen (BUN)/cr eatinine ratioOrdered By: Jonny Vicente on 05-02-2024 Urea nitrogen/Creatinine [Mass ratio] 29.7 mg/mg High 10-20 [facility] CBC W/Diff, Automatedon 12-3 Absolute Lymph 1.38 X10 3/uL Normal 0.83-4.51 [facility] Comment on above: Performed By: #### L 100.0100, L500.2500 ####[facility] [address] [place], [address] Absolute Neut 4.4 X10 3/uL Normal 2.0-7.7 [facility] Comment on above: Performed By: #### L 100.0100, L500.2500 ####[facility] [address] [place], [address] Basophils/100 WBC (Bld) 0.7 % Normal 0-1 [facility] Comment on above: Performed By: #### L 100.0100, L500.2500 ####[facility] [address] [place], [address] Eosinophils/100 WBC (Bld) 3.6 % Normal 0-5 [facility] Comment on above: Performed By: #### L 100.0100, L500.2500 ####[facility] [address] [place], [address] Erythrocyte distribution width (RBC) [Ratio] 16.2 % High 11.6-14.6 [facility] Comment on above: Performed By: #### L 100.0100, L500.2500 ####[facility] [address] [place], [address] Hematocrit (Bld) [Volume fraction] 34.8 % Low 37-47 [facility] Comment on above: Performed By: #### L 100.0100, L500.2500 ####[facility] [address] [place], [address] Hemoglobin (Bld) [Mass/Vol] 11.2 g/dL Low 12.0-15.0 [facility] Comment on above: Performed By: #### L 100.0100, L500.2500 ####[facility] [address] [place], [address] IG% 0.300 Normal 0.0-0.9 [facility] Comment on above: Result Comment: IG% - Immature Granulocytes (promyelocytes, myelocytes andmetamyelocytes) > 1% indicates that a LEFT SHIFT is Present. Performed By: #### L 100.0100, L500.2500 ####[facility] [address] [place], [address] Lymphocytes/100 WBC (Bld) 19.8 % Normal 19-41 [facility] Comment on above: Performed By: #### L 100.0100, L500.2500 ####[facility] [address] [place], [address] MCH (RBC) [Entitic mass] 27.7 pg Normal 27.0-32.0 [facility] Comment on above: Performed By: #### L 100.0100, L500.2500 ####[facility] [address] [place], [address] MCHC (RBC) [Mass/Vol] 32.2 g/dL Normal 32-36 [facility] Comment on above: Performed By: #### L 100.0100, L500.2500 ####[facility] [address] [place], [address] MCV (RBC) [Entitic vol] 85.9 fL Normal 81-99 [facility] Comment on above: Performed By: #### L 100.0100, L500.2500 ####[facility] [address] [place], [address] Monocytes/100 WBC (Bld) 11.9 % High 0-10 [facility] Comment on above: Performed By: #### L 100.0100, L500.2500 ####[facility] [address] [place], [address] Neutrophils/100 WBC (Bld) 63.7 % Normal 47-70 [facility] Comment on above: Performed By: #### L 100.0100, L500.2500 ####[facility] [address] [place], [address] Nucleated RBC (Bld) [#/Vol] 0 10*3/uL Normal 0-5 [facility] Comment on above: Performed By: #### L 100.0100, L500.2500 ####[facility] [address] [place], [address] Platelet mean volume (Bld) [Entitic vol] 10.8 fL Normal 6.2-12.0 [facility] Comment on above: Performed By: #### L 100.0100, L500.2500 ####[facility] [address] [place], [address] Platelets (Bld) [#/Vol] 241 10*3/uL Normal 150-450 [facility] Comment on above: Performed By: #### L 100.0100, L500.2500 ####[facility] [address] [place], [address] RBC (Bld) [#/Vol] 4.05 10*6/uL Low 4.2-5.4 [facility] Comment on above: Performed By: #### L 100.0100, L500.2500 ####[facility] [address] [place], [address] RDW SD 51.3 fl High 35.1-43.9 [facility] Comment on above: Performed By: #### L 100.0100, L500.2500 ####[facility] [address] [place], [address] WBC (Bld) [#/Vol] 7.0 10*3/uL Normal 4.4-11.0 [facility] Comment on above: Performed By: #### L 100.0100, L500.2500 ####[facility] [address] [place], [address] Carbon dioxide measurementOr dered By: Jonny Vicente on 05-02-2024 CO2 [Moles/Vol] 33.0 mmol/L High 21.0-32.0 [facility] Chloride measurementOrdered By: Jonny Vicente on 05-02-2024 Chloride [Moles/Vol] 100 mmol/L 98-107 [facility] Discharge Instructionon 12-[address] [facility] Eosinophil percentageOrdered By: Jonny Vicente on 05-02-2024 Eosinophils/100 WBC (Bld) 3.6 % 0-5 [facility] Erythrocyte distribution wid th ratioOrdered By: Jonny Vicente on 05-02-2024 Erythrocyte distribution width (RBC) [Ratio] 16.2 % High 11.6-14.6 [facility] Erythrocyte distribution wid th standard deviationOrdered By: Jonny Vicente on 05-02-2024 Erythrocyte distribution width (RBC) [Entitic vol] 51.3 fL High 35.1-43.9 [facility] Estimated glomerular filtrat ion rate (GFR) AmericanOrdered By: Jonny Vicente on 05-02-2024 Estimated GFR (MDRD) Amer 96 mL/min >60 [facility] Comment on above: GFR Calc Estimation of creatinine demetrius aranceOrdered By: Jonny Vicente on 05-02-2024 Estimated Creatinine Clearance Calc 63.05 ml/min [facility] Glomerular filtration rate ( GFR) estimationOrdered By: Jonny Vicente on 05-02-2024 Estimated GFR (MDRD) Non-Af Amer 80 mL/min >60 [facility] Comment on above: Non- GFR Calc Glucose measurementOrdered B y: Jonny Vicente on 05-02-2024 Glucose [Mass/Vol] 109 mg/dL High 74-106 [facility] Comment on above: Fasting Glucose resu lt from 100 to 125 mg/dL suggests IMPAIRED HOMEOSTASIS per A.D.A. criteria. Hematocrit Auto (Bld) [Volum e fraction]Ordered By: Jonny Vicente on 05-02-2024 Hematocrit (Bld) [Volume fraction] 34.8 % Low 37-47 [facility] Hemoglobin measurementOrdere d By: Jonny Vicente on 05-02-2024 Hemoglobin (Bld) [Mass/Vol] 11.2 g/dL Low 12.0-15.0 [facility] Immature granulocytes/100 WB C Auto (Bld)Ordered By: Jonny Vicente on 05-02-2024 Immature granulocytes/100 WBC (Bld) 0.300 % 0.0-0.9 [facility] Comment on above: IG% - Immature Granu locytes (promyelocytes, myelocytes and metamyelocytes) > 1% indicates that a LEFT SHIFT is Present. Lymphocytes Auto (Unsp spec) [#/Vol]Ordered By: Jonny Vicente on 05-02-2024 Lymphocytes (Bld) [#/Vol] 1.38 10*3/uL 0.83-4.51 [facility] Lymphocytes/100 WBC Auto (Un sp spec)Ordered By: Jonny Vicente on 05-02-2024 Lymphocytes/100 WBC (Bld) 19.8 % 19-41 [facility] MCV (mean corpuscular volume ) determinationOrdered By: Jonny Vicente on 05-02-2024 MCV (RBC) [Entitic vol] 85.9 fL 81-99 [facility] Mean corpuscular hemoglobin (MCH) determinationOrdered By: Jonny Vicente on 05-02-2024 MCH (RBC) [Entitic mass] 27.7 pg 27.0-32.0 [facility] Mean corpuscular hemoglobin concentration (MCHC) determinationOrdered By: Jonny Vicente on 05-02-2024 MCHC (RBC) [Mass/Vol] 32.2 g/dL 32-36 [facility] Mean platelet volume determi nationOrdered By: Jonny Vicente on 05-02-2024 Platelet mean volume (Bld) [Entitic vol] 10.8 fL 6.2-12.0 [facility] Monocyte percentageOrdered B y: Jonny Vicente on 05-02-2024 Monocytes/100 WBC (Bld) 11.9 % High 0-10 [facility] Neutrophil percentageOrdered By: Jonny Vicente on 05-02-2024 Neutrophils/100 WBC (Bld) 63.7 % 47-70 [facility] Nucleated red blood cell per centageOrdered By: Jonny Vicente on 05-02-2024 Nucleated RBC/100 WBC (Bld) [Ratio] 0 % 0-5 [facility] Platelet countOrdered By: Alyson Vicente on 05-02-2024 Platelets (Bld) [#/Vol] 241 10*3/uL 150-450 [facility] Potassium measurementOrdered By: Jonny Vicente on 05-02-2024 Potassium [Moles/Vol] 3.3 mmol/L Low 3.5-5.1 [facility] RBC Auto (Bld) [#/Vol]Ordere d By: Jonny Vicente on 05-02-2024 RBC (Bld) [#/Vol] 4.05 10*6/uL Low 4.2-5.4 [facility] Serum anion gap measurementO rdered By: Jonny Vicente on 05-02-2024 Anion gap [Moles/Vol] 7 mmol/L 5-15 [facility] Serum or plasma calcium julee urement (mass/volume)Ordered By: Jonny Vicente on 05-02-2024 Calcium [Mass/Vol] 8.7 mg/dL 8.5-10.1 [facility] Serum or plasma creatinine m easurement (mass/volume)Ordered By: Jonny Vicente on 05-02-2024 Creatinine [Mass/Vol] 0.74 mg/dL 0.55-1.02 [facility] Comment on above: The validity of the calculated GFR & GFRAA in patients over 70 years has not been determined. Clinical correlation is essential. Serum or plasma urea nitroge n measurement (mass/volume)Ordered By: Jonny Vicente on 05-02-2024 Urea nitrogen [Mass/Vol] 22 mg/dL High 7-18 [facility] Sodium levelOrdered By: Timmy Vicente on 05-02-2024 Sodium [Moles/Vol] 139 mmol/L 136-145 [facility] Urine Cultureon 05-02-2024 [facility] Comments: Use ED UA Mixed Gram Positive Organisms [place] Count 25,000-50,000 MIXC Mixed contaminants. Submit a new specimen if indicated. Normal [facility] Comment on above: Performed By: #### M 100.2200 ####[facility] [address] [place], [address] White blood cell (WBC) count Ordered By: Jonny Vicente on 05-02-2024 WBC (Bld) [#/Vol] 7.0 10*3/uL 4.4-11.0 [facility] Albumin to globulin ratioOrd ered By: Susan Duran on 05-01-2024 Albumin/Globulin [Mass ratio] 0.8 {ratio} Low 0.9-2.4 [facility] Comment on above: Performed By: #### L 500.4050, L100.0100, L500.4100 ####[facility] [address] [place], [address] Bilirubin, totalOrdered By: Susan Duran on 05-01-2024 Bilirubin [Mass/Vol] 1.60 mg/dL High 0.20-1.00 [facility] Comment on above: For patients on eltr ombopag therapy, use of Dimension [place] TBIL is not recommended. Result Comment: For patients on eltrombopag therapy, use of Dimension [place] TBIL is not recommended. Performed By: #### L 500.4050, L100.0100, L500.4100 ####[facility] [address] [place], [address] CBC W/Diff, Automatedon - Absolute Lymph 1.39 X10 3/uL Normal 0.83-4.51 [facility] Comment on above: Performed By: #### L 500.4050, L100.0100, L500.4100 ####[facility] [address] [place], [address] Absolute Neut 4.5 X10 3/uL Normal 2.0-7.7 [facility] Comment on above: Performed By: #### L 500.4050, L100.0100, L500.4100 ####[facility] [address] [place], [address] Basophils/100 WBC (Bld) 0.8 % Normal 0-1 [facility] Comment on above: Performed By: #### L 500.4050, L100.0100, L500.4100 ####[facility] [address] [place], [address] Eosinophils/100 WBC (Bld) 2.5 % Normal 0-5 [facility] Comment on above: Performed By: #### L 500.4050, L100.0100, L500.4100 ####[facility] [address] [place], [address] Erythrocyte distribution width (RBC) [Ratio] 16.5 % High 11.6-14.6 [facility] Comment on above: Performed By: #### L 500.4050, L100.0100, L500.4100 ####[facility] [address] [place], [address] Hematocrit (Bld) [Volume fraction] 34.0 % Low 37-47 [facility] Comment on above: Performed By: #### L 500.4050, L100.0100, L500.4100 ####[facility] [address] [place], [address] Hemoglobin (Bld) [Mass/Vol] 11.0 g/dL Low 12.0-15.0 [facility] Comment on above: Performed By: #### L 500.4050, L100.0100, L500.4100 ####[facility] [address] [place], [address] IG% 0.100 Normal 0.0-0.9 [facility] Comment on above: Result Comment: IG% - Immature Granulocytes (promyelocytes, myelocytes andmetamyelocytes) > 1% indicates that a LEFT SHIFT is Present. Performed By: #### L 500.4050, L100.0100, L500.4100 ####[facility] [address] [place], [address] Lymphocytes/100 WBC (Bld) 19.6 % Normal 19-41 [facility] Comment on above: Performed By: #### L 500.4050, L100.0100, L500.4100 ####[facility] [address] [place], [address] MCH (RBC) [Entitic mass] 27.5 pg Normal 27.0-32.0 [facility] Comment on above: Performed By: #### L 500.4050, L100.0100, L500.4100 ####[facility] [address] [place], [address] MCHC (RBC) [Mass/Vol] 32.4 g/dL Normal 32-36 [facility] Comment on above: Performed By: #### L 500.4050, L100.0100, L500.4100 ####[facility] [address] [place], [address] MCV (RBC) [Entitic vol] 85.0 fL Normal 81-99 [facility] Comment on above: Performed By: #### L 500.4050, L100.0100, L500.4100 ####[facility] [address] [place], [address] Monocytes/100 WBC (Bld) 13.4 % High 0-10 [facility] Comment on above: Performed By: #### L 500.4050, L100.0100, L500.4100 ####[facility] [address] [place], [address] Neutrophils/100 WBC (Bld) 63.6 % Normal 47-70 [facility] Comment on above: Performed By: #### L 500.4050, L100.0100, L500.4100 ####[facility] [address] [place], [address] Nucleated RBC (Bld) [#/Vol] 0 10*3/uL Normal 0-5 [facility] Comment on above: Performed By: #### L 500.4050, L100.0100, L500.4100 ####[facility] [address] [place], [address] Platelet mean volume (Bld) [Entitic vol] 11.2 fL Normal 6.2-12.0 [facility] Comment on above: Performed By: #### L 500.4050, L100.0100, L500.4100 ####[facility] [address] [place], [address] Platelets (Bld) [#/Vol] 193 10*3/uL Normal 150-450 [facility] Comment on above: Performed By: #### L 500.4050, L100.0100, L500.4100 ####[facility] [address] [place], [address] RBC (Bld) [#/Vol] 4.00 10*6/uL Low 4.2-5.4 [facility] Comment on above: Performed By: #### L 500.4050, L100.0100, L500.4100 ####[facility] [address] [place], [address] RDW SD 51.2 fl High 35.1-43.9 [facility] Comment on above: Performed By: #### L 500.4050, L100.0100, L500.4100 ####[facility] [address] [place], [address] WBC (Bld) [#/Vol] 7.1 10*3/uL Normal 4.4-11.0 [facility] Comment on above: Performed By: #### L 500.4050, L100.0100, L500.4100 ####[facility] [address] [place], [address] CNPNon 05-01-2024 [facility] Telephone (FAMPWS) MICHAEL MEIER ([id number]) 1940 F Date Time Provider Department 05/01/24 MICHAEL PUGA [facility] During your visit today, we recorded the following information about you: Constance Ervin LPN 05/01/2024 2:21 PM Signed Larissa with [facility] calls to report pt is currently in the hospital with heart failure exacerbation. Pt will most likely be discharged 05/03/24. Pt has orders for PT, OT, and Custodial. Larissa is requesting VO that pcp will follow pt while in HH. Call Larissa with VO from pcp. CAROLINE Lennon Bernadette, PA-C 05/01/2024 4:03 PM Signed Verbal order okay for PCP to follow for HH. SERGE Griffin Susan LPN 05/01/2024 4:41 PM Signed Manny informed message left on VM. Allergies As [...] Date Reviewed: 04/10/2024 Reviewed by: Sharon Jarrett APRN.STEREOPTIC PROJECTION TOPOGRAPHER - Fully Assessed Reason for Visit: verbal [...] atrial fibrilla (more content not included)... Normal [facility] Metabolic Prof shahida 05-01-2024 ALK P 80 U/L Normal 45-117 [facility] Comment on above: Performed By: #### L 500.4050, L100.0100, L500.4100 ####[facility] [address] [place], [address] BUN/CRE 20.0 RATIO Normal 10-20 [facility] Comment on above: Performed By: #### L 500.4050, L100.0100, L500.4100 ####[facility] [address] [place], [address] CA,Total 8.8 mg/dL Normal 8.5-10.1 [facility] Comment on above: Performed By: #### L 500.4050, L100.0100, L500.4100 ####[facility] [address] [place], [address] Chloride [Moles/Vol] 100 mmol/L Normal 98-107 [facility] Comment on above: Performed By: #### L 500.4050, L100.0100, L500.4100 ####[facility] [address] [place], [address] CO2 [Moles/Vol] 35.0 mmol/L High 21.0-32.0 [facility] Comment on above: Performed By: #### L 500.4050, L100.0100, L500.4100 ####[facility] [address] [place], [address] Creatinine [Mass/Vol] 0.85 mg/dL Normal 0.55-1.02 [facility] Comment on above: Result Comment: The validity of the calculated GFR GFRAA in patients over70 years has not been determined. Clinical correlation isessential. Performed By: #### L 500.4050, L100.0100, L500.4100 ####[facility] [address] [place], [address] ECRCL 59.98 ml/min Normal [facility] Comment on above: Performed By: #### L 500.4050, L100.0100, L500.4100 ####[facility] [address] [place], [address] EST GFR - AA 82 mL/min Normal >60 [facility] Comment on above: Result Comment: Afri can Welsh GFR Calc Performed By: #### L 500.4050, L100.0100, L500.4100 ####[facility] [address] [place], [address] GAP 3 Low 5-15 [facility] Comment on above: Performed By: #### L 500.4050, L100.0100, L500.4100 ####[facility] [address] [place], [address] GFR/1.73 sq M.predicted among non-blacks MDRD (S/P/Bld) [Vol rate/Area] 68 mL/min/{1.73_m2} Normal >60 [facility] Comment on above: Result Comment: Non- GFR Calc Performed By: #### L 500.4050, L100.0100, L500.4100 ####[facility] [address] [place], [address] Glucose [Mass/Vol] 117 mg/dL High 74-106 [facility] Comment on above: Result Comment: Fast ing Glucose result from 100 to 125 mg/dLsuggests IMPAIRED HOMEOSTASIS per A.D.A. criteria. Performed By: #### L 500.4050, L100.0100, L500.4100 ####[facility] [address] [place], [address] Potassium [Moles/Vol] 3.0 mmol/L Low 3.5-5.1 [facility] Comment on above: Performed By: #### L 500.4050, L100.0100, L500.4100 ####[facility] [address] [place], [address] Sodium [Moles/Vol] 138 mmol/L Normal 136-145 [facility] Comment on above: Performed By: #### L 500.4050, L100.0100, L500.4100 ####[facility] [address] [place], [address] T PROT 6.3 g/dL Low 6.4-8.2 [facility] Comment on above: Performed By: #### L 500.4050, L100.0100, L500.4100 ####[facility] [address] [place], [address] Urea nitrogen [Mass/Vol] 17 mg/dL Normal 7-18 [facility] Comment on above: Performed By: #### L 500.4050, L100.0100, L500.4100 ####[facility] [address] [place], [address] Comprehensive Metabolic Prof ilOrdered By: Susan Duran on 05-01-2024 AST [Catalytic activity/Vol] 18 U/L Normal 15-37 [facility] Comment on above: Performed By: #### L 500.4050, L100.0100, L500.4100 ####[facility] [address] [place], [address] High density lipoprotein (HD L) measurementOrdered By: Susan Duran on 05-01-2024 Cholesterol in HDL [Mass/Vol] 54 mg/dL Normal [facility] Comment on above: The drugs N-Acetylcy steine and Metamizole may falsely depress this assay. Reference Range HDL <40 mg/dL Low HDL Cholesterol HDL >or= 60 mg/dL High HDL Cholesterol Result Comment: The drugs N-Acetylcysteine and Metamizole may falselydepress this assay. Reference Range HDL <40 mg/dL Low HDL Cholesterol HDL >or= 60 mg/dL High HDL Cholesterol Performed By: #### L 500.4050, L100.0100, L500.4100 ####[facility] [address] [place], [address] Lipid Profileon 05-01-2024 Cholesterol in VLDL [Mass/Vol] 20 mg/dL Normal 5-40 [facility] Comment on above: Performed By: #### L 500.4050, L100.0100, L500.4100 ####[facility] [address] [place], [address] Low density lipoprotein (LDL ) cholesterol measurementOrdered By: Susan Duran on 05-01-2024 Cholesterol in LDL [Mass/Vol] 66 mg/dL Normal 0-130 [facility] Comment on above: Performed By: #### L 500.4050, L100.0100, L500.4100 ####[facility] [address] [place], [address] Serum globulin measurementOr dered By: Susan Duran on 05-01-2024 Globulin (S) [Mass/Vol] 3.5 g/dL Normal 2.2-4.2 [facility] Comment on above: Performed By: #### L 500.4050, L100.0100, L500.4100 ####[facility] [address] [place], [address] Serum or plasma alanine sprague otransferase (ALT) measurementOrdered By: Susan Duran on 05-01-2024 ALT [Catalytic activity/Vol] 24 U/L Normal 13-56 [facility] Comment on above: Performed By: #### L 500.4050, L100.0100, L500.4100 ####[facility] [address] [place], [address] Serum or plasma albumin julee urement (mass/volume)Ordered By: Susan Duran on 05-01-2024 Albumin [Mass/Vol] 2.8 g/dL Low 3.2-5.0 [facility] Comment on above: Performed By: #### L 500.4050, L100.0100, L500.4100 ####[facility] [address] [place], [address] Serum or plasma alkaline rachel sphatase measurementOrdered By: Susan Roger on 05-01-2024 ALP [Catalytic activity/Vol] 80 U/L 45-117 [facility] Serum or plasma cholesterol measurement (mass/volume)Ordered By: Susan Duran on 05-01-2024 Cholesterol [Mass/Vol] 140 mg/dL Normal 200 [facility] Comment on above: <200 mg/dL Desirable 200-240 mg/dL Borderline >240 mg/dL High Risk Result Comment: <200 mg/dL Desirable 200-240 mg/dL Borderline >240 mg/dL High Risk Performed By: #### L 500.4050, L100.0100, L500.4100 ####[facility] [address] [place], [place], [id number] Total proteinOrdered By: Ashu Duran on 05-01-2024 Protein [Mass/Vol] 6.3 g/dL Low 6.4-8.2 [facility] Triglycerides measurementOrd ered By: Susan Roger on 05-01-2024 Triglyceride [Mass/Vol] 102 mg/dL Normal [facility] Comment on above: The drugs N-Acetylcy steine and Metamizole may falsely depress this assay.Serum Triglycerides Reference Interval Normal <150 mg/dL Borderline high 150 - 199 mg/dL High 200 - 499 mg/dL Very High > or = 500 mg/dL Result Comment: The drugs N-Acetylcysteine and Metamizole may falselydepress this assay.Serum Triglycerides Reference Interval Normal <150 mg/dL Borderline high 150 - 199 mg/dL High 200 - 499 mg/dL Very High > or = 500 mg/dL Performed By: #### L 500.4050, L100.0100, L500.4100 ####[facility] [address] [place], [place], [id number] Very low density lipoprotein (VLDL) cholesterol measurementOrdered By: Susan Duran on 05-01-2024 VLDL Cholesterol 20 mg/dL 5-40 [facility] 12 Lead EKGon 04-30-2024 12 Lead EKG Normal [facility] Amorphous sediment detection in urine sediment by light microscopyOrdered By: Aravind Recio on 04-30-2024 Amorphous sediment LM Ql (Urine sed) 1+ [facility] BNP (brain natriuretic pepti de measurement)Ordered By: Aravind Recio on 04-30-2024 Natriuretic peptide B (Bld) [Mass/Vol] 266.9 pg/mL High 0-100 [facility] BNP,B-Type NATRIURETIC PEPTI Kenyatta 04-30-2024 Natriuretic peptide B (Bld) [Mass/Vol] 266.9 pg/mL High 0-100 [facility] Comment on above: Performed By: #### L 501.9520, L300.8000, L501.5200, L500.2500, L503.6620 ####[facility] [address] [place], [place], [phone] Metabolic Profile (BMP )on 04-30-2024 BUN/CRE 19.1 RATIO Normal 10-20 [facility] Comment on above: Performed By: #### L 501.9520, L300.8000, L501.5200, L500.2500, L503.6620 ####[facility] [address] [place], [address] CA,Total 9.0 mg/dL Normal 8.5-10.1 [facility] Comment on above: Performed By: #### L 501.9520, L300.8000, L501.5200, L500.2500, L503.6620 ####[facility] [address] [place], [address] Chloride [Moles/Vol] 99 mmol/L Normal 98-107 [facility] Comment on above: Performed By: #### L 501.9520, L300.8000, L501.5200, L500.2500, L503.6620 ####[facility] [address] [place], [address] CO2 [Moles/Vol] 33.0 mmol/L High 21.0-32.0 [facility] Comment on above: Performed By: #### L 501.9520, L300.8000, L501.5200, L500.2500, L503.6620 ####[facility] [address] [place], [address] Creatinine [Mass/Vol] 0.68 mg/dL Normal 0.55-1.02 [facility] Comment on above: Result Comment: The validity of the calculated GFR GFRAA in patients over70 years has not been determined. Clinical correlation isessential. Performed By: #### L 501.9520, L300.8000, L501.5200, L500.2500, L503.6620 ####[facility] [address] [place], [address] ECRCL 65.47 ml/min Normal [facility] Comment on above: Performed By: #### L 501.9520, L300.8000, L501.5200, L500.2500, L503.6620 ####[facility] [address] [place], [address] EST GFR - AA 106 mL/min Normal >60 [facility] Comment on above: Result Comment: Afri can Welsh GFR Calc Performed By: #### L 501.9520, L300.8000, L501.5200, L500.2500, L503.6620 ####[facility] [address] [place], [address] GAP 7 Normal 5-15 [facility] Comment on above: Performed By: #### L 501.9520, L300.8000, L501.5200, L500.2500, L503.6620 ####[facility] [address] [place], [address] GFR/1.73 sq M.predicted among non-blacks MDRD (S/P/Bld) [Vol rate/Area] 88 mL/min/{1.73_m2} Normal >60 [facility] Comment on above: Result Comment: Non- GFR Calc Performed By: #### L 501.9520, L300.8000, L501.5200, L500.2500, L503.6620 ####[facility] [address] [place], [address] Glucose [Mass/Vol] 127 mg/dL High 74-106 [facility] Comment on above: Result Comment: Fast ing Glucose result greater than or equal to 126 mg/dLsuggests DIABETES MELLITUS per A.D.A. criteria. Performed By: #### L 501.9520, L300.8000, L501.5200, L500.2500, L503.6620 ####[facility] [address] [place], [address] Potassium [Moles/Vol] 2.8 mmol/L Low 3.5-5.1 [facility] Comment on above: Performed By: #### L 501.9520, L300.8000, L501.5200, L500.2500, L503.6620 ####[facility] [address] [place], [address] Sodium [Moles/Vol] 139 mmol/L Normal 136-145 [facility] Comment on above: Performed By: #### L 501.9520, L300.8000, L501.5200, L500.2500, L503.6620 ####[facility] [address] [place], [address] Urea nitrogen [Mass/Vol] 13 mg/dL Normal 7-18 [facility] Comment on above: Performed By: #### L 501.9520, L300.8000, L501.5200, L500.2500, L503.6620 ####[facility] [address] [place], [address] Bilirubin Test strip Ql (U)O rdered By: Aravind Recio on 04-30-2024 Bilirubin Ql (U) Negative Negative [facility] Bilirubin directOrdered By: Aravind Recio on 04-30-2024 Bilirubin.direct [Mass/Vol] 0.52 mg/dL High 0.00-0.30 [facility] CBC W/Diff, Automatedon 04-03 Absolute Lymph 1.24 X10 3/uL Normal 0.83-4.51 [facility] Comment on above: Performed By: #### L 100.0100 ####[facility] [address] [place], [address] Absolute Neut 10.4 X10 3/uL High 2.0-7.7 [facility] Comment on above: Performed By: #### L 100.0100 ####[facility] [address] [place], [address] Basophils/100 WBC (Bld) 0.4 % Normal 0-1 [facility] Comment on above: Performed By: #### L 100.0100 ####[facility] [address] [place], [address] Eosinophils/100 WBC (Bld) 1.3 % Normal 0-5 [facility] Comment on above: Performed By: #### L 100.0100 ####[facility] [address] [place], [address] Erythrocyte distribution width (RBC) [Ratio] 16.7 % High 11.6-14.6 [facility] Comment on above: Performed By: #### L 100.0100 ####[facility] [address] [place], [address] Hematocrit (Bld) [Volume fraction] 36.9 % Low 37-47 [facility] Comment on above: Performed By: #### L 100.0100 ####[facility] [address] [place], [address] Hemoglobin (Bld) [Mass/Vol] 11.9 g/dL Low 12.0-15.0 [facility] Comment on above: Performed By: #### L 100.0100 ####[facility] [address] [place], [address] IG% 0.400 Normal 0.0-0.9 [facility] Comment on above: Result Comment: IG% - Immature Granulocytes (promyelocytes, myelocytes andmetamyelocytes) > 1% indicates that a LEFT SHIFT is Present. Performed By: #### L 100.0100 ####[facility] [address] [place], [address] Lymphocytes/100 WBC (Bld) 9.3 % Low 19-41 [facility] Comment on above: Performed By: #### L 100.0100 ####[facility] [address] [place], [address] MCH (RBC) [Entitic mass] 27.7 pg Normal 27.0-32.0 [facility] Comment on above: Performed By: #### L 100.0100 ####[facility] [address] [place], [address] MCHC (RBC) [Mass/Vol] 32.2 g/dL Normal 32-36 [facility] Comment on above: Performed By: #### L 100.0100 ####[facility] [address] [place], [address] MCV (RBC) [Entitic vol] 85.8 fL Normal 81-99 [facility] Comment on above: Performed By: #### L 100.0100 ####[facility] [address] [place], [address] Monocytes/100 WBC (Bld) 11.0 % High 0-10 [facility] Comment on above: Performed By: #### L 100.0100 ####[facility] [address] [place], [address] Neutrophils/100 WBC (Bld) 77.6 % High 47-70 [facility] Comment on above: Performed By: #### L 100.0100 ####[facility] [address] [place], [address] Nucleated RBC (Bld) [#/Vol] 0 10*3/uL Normal 0-5 [facility] Comment on above: Performed By: #### L 100.0100 ####[facility] [address] [place], [address] Platelet mean volume (Bld) [Entitic vol] 10.8 fL Normal 6.2-12.0 [facility] Comment on above: Performed By: #### L 100.0100 ####[facility] [address] [place], [address] Platelets (Bld) [#/Vol] 236 10*3/uL Normal 150-450 [facility] Comment on above: Performed By: #### L 100.0100 ####[facility] [address] [place], [address] RBC (Bld) [#/Vol] 4.30 10*6/uL Normal 4.2-5.4 [facility] Comment on above: Performed By: #### L 100.0100 ####[facility] [address] [place], [address] RDW SD 52.8 fl High 35.1-43.9 [facility] Comment on above: Performed By: #### L 100.0100 ####[facility] [address] [place], [address] WBC (Bld) [#/Vol] 13.4 10*3/uL High 4.4-11.0 [facility] Comment on above: Performed By: #### L 100.0100 ####[facility] [address] [place], [place], [id number] CTA Chest W/WO Contraston CTA Chest W/WO Contrast Normal [facility] Chest PA and Lateralon 04-30 Chest PA and Lateral Normal [facility] D-Dimer Quantitative (DVT/PE )on 04-30-2024 D-DIMER QUANT 0.83 FEU/ug/m Invalid Interpretation Code 0.27-0.49 [facility] Comment on above: Result Comment: D-Di rand ELEVATED (>0.49): Additional studies and clinicalassessments are indicated to conclude diagnosis of:Deep Vein Thrombosis (DVT) or Pulmonary Embolism (PE)CRIT[facility] 07 Yessenia Kern.RESULTS READ BACK BY SAME. Performed By: #### L 501.9520, L300.8000, L501.5200, L500.2500, L503.6620 ####[facility] [address] [place], [place], [address] D-dimer measurement for deep venous thrombosisOrdered By: Aravind Recio on 04-30-2024 D-Dimer Quantitative (PE/DVT) 0.83 FEU/ug/m High 0.27-0.49 [facility] Comment on above: D-Dimer ELEVATED (>0 .49): Additional studies and clinicalassessments are indicated to conclude diagnosis of:Deep Vein Thrombosis (DVT) or Pulmonary Embolism (PE)CRITICAL VALUE CALLED TO [facility]04/30/24 0731 Yessenia Kern.RESULTS READ BACK BY SAME. Direct serum free thyroxine (FT4) measurementOrdered By: Susan Duran on 04-30-2024 Free T4 [Mass/Vol] 1.90 ng/dL High 0.76-1.46 [facility] Emergency Department Summary on 04-30-2024 Emergency Department Summary Normal [facility] Epithelial cells.renal LM.HP F (Urine sed) [#/Area]Ordered By: Aravind Recio on 04-30-2024 Urine Renal Epithelial Cells 0-5 SEEN /hpf 0-5 [facility] Epithelial cells.squamous LM Ql (Urine sed)Ordered By: Aravind Recio on 04-30-2024 Epithelial cells.squamous LM.HPF (Urine sed) [#/Area] 5 /[HPF] 5-10 [facility] Glucose Ql (U)Ordered By: Ynaira Recio on 04-30-2024 Urine Glucose (UA) Normal mg/dl Normal [facility] H AND P Exam - Hospitaliston 04-30-2024 H&P Exam - Hospitalist Normal [facility] Influenza virus A and B and SARS-CoV-2 (COVID-19) and Respiratory syncytial virus RNAOrdered By: Aravind Recio on 04-30-2024 SARS-CoV-2 (COVID-19) RNA DUSTIN+probe Ql (Unsp spec) [facility] International normalized rat io (INR) calculationOrdered By: Aravind Recio on 04-30-2024 INR Coag (Bld) [Relative time] 1.2 {INR} [facility] Ketones Test strip Ql (U)Ord ered By: Aravind Recio on 04-30-2024 Ketones Ql (U) Negative Negative [facility] L501.4020on 04-30-2024 TROPONIN-I HS 43 pg/mL Normal 3.0-54.0 [facility] Comment on above: Order Comment: Comme nts: SPECIMEN #3'TROP' Serial specimen #1, #2 or #3: 3 Result Comment: Plea se Note: New Test Units and Gender Specific Reference Ranges. For more information see Policy Stat Procedure [place] High Sensitivity Troponin (TNIH) and attachments. Performed By: #### L 501.4020 ####[facility] [address] [place], [place], [address] TROPONIN-I HS 56 pg/mL High 3.0-54.0 [facility] Comment on above: Order Comment: Comme nts: SPECIMEN #2'TROP' Serial specimen #1, #2 or #3: 2 Result Comment: Plea se Note: New Test Units and Gender Specific Reference Ranges. For more information see Policy Stat Procedure [place] High Sensitivity Troponin (TNIH) and attachments. Performed By: #### L 501.4020 ####[facility] [address] [place], [address] TROPONIN-I HS 65 pg/mL High 3.0-54.0 [facility] Comment on above: Order Comment: 'TROP ' Serial specimen #1, #2 or #3: 1 Result Comment: Plea se Note: New Test Units and Gender Specific Reference Ranges. For more information see Policy Stat Procedure [place] High Sensitivity Troponin (TNIH) and attachments. Performed By: #### L 501.4020 ####[facility] [address] [place], [address] Lipaseon 04-30-2024 Lipase [Catalytic activity/Vol] 12 U/L Low 13-75 [facility] Comment on above: Result Comment: Plea se note:LIPASE revised reference range effective 22.New Lipase methodology. Expected to produce lower valuesthan the previous assay method.NEW Reference Range: 13 - 75 U/L Performed By: #### L 500.3400, L501.2450 ####[facility] [address] [place], [address] Lipase measurementOrdered By : Aravind Recio on 04-30-2024 Lipase [Catalytic activity/Vol] 12 U/L Low 13-75 [facility] Comment on above: Please note:LIPASE r evised reference range effective 22. New Lipase methodology. Expected to produce lower values than the previous assay method. NEW Reference Range: 13 - 75 U/L Liver Profileon 04-30-2024 Albumin [Mass/Vol] 3.2 g/dL Normal 3.2-5.0 [facility] Comment on above: Performed By: #### L 500.3400, L501.2450 ####[facility] [address] [place], [address] ALK P 96 U/L Normal 45-117 [facility] Comment on above: Performed By: #### L 500.3400, L501.2450 ####[facility] [address] [place], [address] ALT [Catalytic activity/Vol] 27 U/L Normal 13-56 [facility] Comment on above: Performed By: #### L 500.3400, L501.2450 ####[facility] [address] [place], [address] AST [Catalytic activity/Vol] 19 U/L Normal 15-37 [facility] Comment on above: Performed By: #### L 500.3400, L501.2450 ####[facility] [address] [place], [address] Bilirubin [Mass/Vol] 2.20 mg/dL High 0.20-1.00 [facility] Comment on above: Result Comment: For patients on eltrombopag therapy, use of Dimension [place] TBIL is not recommended. Performed By: #### L 500.3400, L501.2450 ####[facility] [address] [place], [address] Bilirubin.direct [Mass/Vol] 0.52 mg/dL High 0.00-0.30 [facility] Comment on above: Performed By: #### L 500.3400, L501.2450 ####[facility] [address] [place], [address] Globulin (S) [Mass/Vol] 4.0 g/dL Normal 2.2-4.2 [facility] Comment on above: Performed By: #### L 500.3400, L501.2450 ####[facility] [address] [place], [address] T PROT 7.2 g/dL Normal 6.4-8.2 [facility] Comment on above: Performed By: #### L 500.3400, L501.2450 ####[facility] [address] [place], [address] M100.678on 04-30-2024 M100.678 Pending SARS-CoV-2 (COVID 19) Negative INFLUENZA A Negative INFLUENZA B Negative RSV PCR Negative Normal [facility] Comment on above: Performed By: #### M 100.678, L400.0001 ####[facility] [address] [place], [address] Magnesiumon 04-30-2024 Magnesium [Mass/Vol] 2.0 mg/dL Normal 1.6-2.6 [facility] Comment on above: Performed By: #### L 501.9520, L300.8000, L501.5200, L500.2500, L503.6620 ####[facility] [address] [place], [address] Magnesium measurementOrdered By: Aravind Recio on 04-30-2024 Magnesium [Mass/Vol] 2.0 mg/dL 1.6-2.6 [facility] Microscopic analysis of urin e for red blood cells (RBC)Ordered By: Aravind Recio on 04-30-2024 Urine RBC 0-5 SEEN /hpf 0-5 [facility] Mucus LM Ql (Urine sed)Order ed By: Aravind Recio on 04-30-2024 Mucus Ql (Urine sed) 0 SEEN /hpf [facility] Nitrite Test strip Ql (U)Ord ered By: Aravind Recio on 04-30-2024 Nitrite Ql (U) Negative Negative [facility] Partial Thromboplast Timeon 04-30-2024 aPTT Coag (Bld) [Time] 32.3 s Normal 24.1-36.2 [facility] Comment on above: Performed By: #### L 300.3900, L300.4310 ####[facility] [address] [place], [address] Protein Test strip Ql (U)Ord ered By: Aravind Recio on 04-30-2024 Protein Ql (U) 15 mg/dl High Negative [facility] Prothrombin Time w/INRon INR Coag (PPP) [Relative time] 1.2 {INR} Normal [facility] Comment on above: Performed By: #### L 300.3900, L300.4310 ####[facility] [address] [place], [address] PT Coag (PPP) [Time] 14.9 s Normal 11.7-14.9 [facility] Comment on above: Performed By: #### L 300.3900, L300.4310 ####[facility] [address] [place], [address] Prothrombin timeOrdered By: Aravind Recio on 04-30-2024 PT Coag (PPP) [Time] 14.9 s 11.7-14.9 [facility] RESPIRATORY PANEL MOLECULARo n 04-30-2024 RP PANEL Normal [facility] Comment on above: Performed By: #### M 100.638 ####[facility] [address] [place], [address] Respiratory pathogens DNA an d RNA panel DUSTIN+probe (Resp)Ordered By: Susan Duran on 04-30-2024 Respiratory Panel (PCR) [facility] T4 Free Directon 04-30-2024 T4 FREE DIRECT 1.90 ng/dL High 0.76-1.46 [facility] Comment on above: Performed By: #### L 506.0400 ####[facility] [address] [place], [address] TSH QnOrdered By: Norbert on 04-30-2024 Thyroid Stimulating Hormone (TSH) 4.070 uIU/mL High 0.358-3.74 0 [facility] Thyroid Stim Hormone (TSH)on 04-30-2024 TSH 4.070 uIU/mL High 0.358-3.74 0 [facility] Comment on above: Performed By: #### L 501.9520, L300.8000, L501.5200, L500.2500, L503.6620 ####[facility] [address] [place], [address] Transitional cells LM Ql (Ur ine sed)Ordered By: Aravind Recio on 04-30-2024 Urine Transitional Epithelial Cells 0-5 SEEN /hpf 0-5 [facility] Troponin IOrdered By: Susan Duran on 04-30-2024 Troponin I High Sensitivity 43 pg/mL 3.0-54.0 [facility] Comment on above: Please Note: New Destine[place] t Units and Gender Specific Reference Ranges. For more information see Policy Stat Procedure [place] High Sensitivity Troponin (TNIH) and attachments. Urinalysis, Completeon 04-30 AMORPHOUS 1+ Normal [facility] Comment on above: Order Comment: LISANDRA CTOR TO SPECIFY Performed By: #### M 100.678, L400.0001 ####[facility] [address] [place], [address] BACTERIA 2+ /hpf Normal None Seen [facility] Comment on above: Order Comment: LISANDRA CTOR TO SPECIFY Performed By: #### M 100.678, L400.0001 ####[facility] [address] [place], [address] EPI,RENAL 0-5 SEEN Normal 0-5 [facility] Comment on above: Order Comment: LISANDRA CTOR TO SPECIFY Performed By: #### M 100.678, L400.0001 ####[facility] [address] [place], [address] EPI,SQUAMOUS 5-10 SEEN Normal 5-10 [facility] Comment on above: Order Comment: LISANDRA CTOR TO SPECIFY Performed By: #### M 100.678, L400.0001 ####[facility] [address] [place], [address] EPI,TRANSITION 0-5 SEEN Normal 0-5 [facility] Comment on above: Order Comment: LISANDRA CTOR TO SPECIFY Performed By: #### M 100.678, L400.0001 ####[facility] [address] [place], [address] RBC 0-5 SEEN Normal 0-5 [facility] Comment on above: Order Comment: LISANDRA CTOR TO SPECIFY Performed By: #### M 100.678, L400.0001 ####[facility] [address] [place], [address] WBC 0-5 SEEN Normal 0-5 [facility] Comment on above: Order Comment: LISANDRA CTOR TO SPECIFY Performed By: #### M 100.678, L400.0001 ####[facility] [address] [place], [address] Mucus Ql (Urine sed) 0 SEEN Normal [facility] Comment on above: Order Comment: LISANDRA CTOR TO SPECIFY Performed By: #### M 100.678, L400.0001 ####[facility] [address] [place], [address] Urine blood detectionOrdered By: Aravind Recio on 04-30-2024 Urine Occult Blood Negative Negative [facility] Urine clarityOrdered By: Addy Recio on 04-30-2024 Clarity (U) Clear Clear [facility] Urine color determinationOrd ered By: Aravind Recio on 04-30-2024 Color (U) Yellow Yellow [facility] Urine cultureOrdered By: Aut umn White on 04-30-2024 Bacteria identified Cx Nom (U) Positive Abnormal [facility] Urine leukocyte esterase det ection by dipstickOrdered By: Aravind Recio on 04-30-2024 Leukocyte esterase Test strip Ql (U) 100 /ul High Negative [facility] Urine pHOrdered By: Aravind thomas on 04-30-2024 pH (U) 7.0 [pH] 5.0 - 8.0 [facility] Urine sediment bacteria coun t by microscopy (number/high power field)Ordered By: Aravind Recio on 04-30-2024 Bacteria LM.HPF (Urine sed) [#/Area] 2 /[HPF] None Seen [facility] Urine specific gravity measu rementOrdered By: Aravind Recio on 04-30-2024 Specific gravity (U) [Rel density] 1.010 1.002-1.03 0 [facility] Urobilinogen Ql (U)Ordered B y: Aravind Recio on 04-30-2024 Urobilinogen (U) [Mass/Vol] 8 mg/dL High Normal [facility] White blood cell countOrdere d By: Aravind Recio on 04-30-2024 Urine WBC 0-5 SEEN /hpf 0-5 [facility] aPTT Coag (PPP) [Time]Ordere d By: Aravind Recio on 04-30-2024 aPTT Coag (Bld) [Time] 32.3 s 24.1-36.2 [facility] CNPNon 04-24-2024 [facility] Telephone (FAMPWS) MICHAEL MEIER ([id number]) 1940 F Date Time Provider Department 04/24/24 MICHAEL PUGA [facility] During your visit today, we recorded [...] Date Reviewed: 04/10/2024 Reviewed by: Sharon Jarrett APRN.STEREOPTIC PROJECTION TOPOGRAPHER - Fully Assessed Reason for Visit: Leg [...] List As Of Date 04/24/2024 Noted Resolved MALIG MELANOMA TRUNK [C43.59] 02/17/2001 [...] adult [Z68.37] (more content not included)... Normal [facility] CNTHERAPYon 04-20-2024 CNTHERAPY OT/PT/Speech Visit ( LDPT) MICHAEL MEIER ([id number]) 1940 F Date Time Provider Department 04/20/24 12:45 PM SARAH MERCHANT LDPT Date Time Provider Department [place] 04/20/2024 12:45 PM [id number], CARLA LDPT [facility] Reason for Visit: Physical Therapy [503] PT [...] Date Reviewed: 04/10/2024 Reviewed by: Sharon Jarrett APRN.STEREOPTIC PROJECTION TOPOGRAPHER - Fully Assessed Prescriptions as of 07/03/2024 [...] 1 tablet by mouth once daily. Normal [facility] [id number] 04-18-2024 [id number] O ID: [id number] Author: SARAH MERCHANT PT Service: ? Author Type: Physical Therapist Type: [id number] Filed: 04/18/2024 19:04 Note Text: [facility] Physical Therapy Plan of Care Certification Patient Name: Michael Meier : 1940 [facility] #: [id number] Date: 04/18/2024 To: Geeta Cadet,* From Therapist: [...] for Episode of Care: created on 11/15/23 [place] in home exercise program. Patient will demonstrate [...] Patient to be seen for Therapeutic exercise (49310), Neuromuscular re-education (13827), Therapeutic activities (00123), Self-group home management (29532), Gait Training (74453), Patient/Family/Caregiver Education, General Conditioning PLAN FOR NEXT VISIT: continue to progress endurance, strength, balance and gait. promote increased mobility/activity at home For further details regarding this patient refer to the Physical Therapy electronically documented visit dated 04/18/2024. Provider Attestation I have reviewed the treatment plan for Michael Meier, [facility]# [id number] for the period of 04/18/24 -- 05/18/24, established on 04/18/2024. Signature certifies the need for therapy services. Normal [facility] CNTHERAPYon 04-18-2024 CNTHERAPY OT/PT/Speech Visit ( LDPT) MICHAEL MEIER ([id number]) 1940 F Date Time Provider Department 04/18/24 1:30 PM SARAH MERCHANT LDPT Date Time Provider Department Center 04/18/2024 1:30 PM [id number] STEWARD LDPT [facility] Reason for Visit: PT Progress Note [1596] [...] Date Reviewed: 04/10/2024 Reviewed by: Sharon Jarrett APRN.STEREOPTIC PROJECTION TOPOGRAPHER - Fully Assessed Prescriptions as of 05/08/2024 [...] by mouth once daily. [facility] Office Visit (GENSWS ) MICHAEL MEIER ([id number]) 1940 F Date Time Provider Department 04/10/24 4:00 PM SHARON JARRETT GENGAURAVS During your visit today, we recorded the following information about you: Sharon Jarrett APRN.CNP 04/10/2024 4:04 PM Signed FOLLOW UP VISIT - ENDOSCOPY Michael Meier 1940 [id number] REFERRING PHYSICIAN: No referring provider defined for [...] recommend follow up endoscopy as symptoms dictate. updated and recall letter generated. Discussed treatment plan and patient voices understanding. Patient's questions answered appropriately. Medications and potential side effects were discussed and patient voices understanding. Return to the office as scheduled or as needed for worsening/no improvement. Sharon Jarrett APRN.STEREOPTIC PROJECTION TOPOGRAPHER Allergies As of Date: 04/10/2024 Noted Allergy [...] Date Reviewed: 04/10/2024 Reviewed by: Sharon Jarrett APRN.STEREOPTIC PROJECTION TOPOGRAPHER - Fully Assessed Reason for Visit: Follow [...] rosuvastatin (CR (more content not included)... Normal [facility] ANES POSTPROC EVALon 024 ANES POSTPROC EVAL HNO ID: [id number] Author: YVONNE MANLEY MD Service: Anesthesiology Author Type: Anesthesiologist Type: Anesthesia Postprocedure Evaluation Filed: 03/31/2024 11:44 Note Text: POST ANESTHESIA EVALUATION NOTE : 1940 Procedure Summary Date: 03/31/24 Room / Location: [facility] Endoscopy Anesthesia Start: 1053 Anesthesia Stop: 1115 Procedure: EGD DIAGNOSTIC Diagnosis: Epigastric abdominal pain Pulmonary hypertension (HCC) (Epigastric abdominal pain) Scheduled Providers: Raymundo De León MD; Yvonne Manley MD; Kelsea Mo APRN.PRESS CUTTER Responsible Provider: Yvonne Manley MD Anesthesia Type: [...] Documentation SIGNATURE: Yvonne Manley MD PATIENT NAME: Mcihael Meier DATE: March 31, 2024 TIME: 11:44 AM CSN: [id number] Normal [facility] ANES PRE-OPon 03-31-2024 ANES PRE-OP HNO ID: [id number] Author: YVONNE MANLEY MD Service: Anesthesiology Author Type: Anesthesiologist Type: Anesthesia Preprocedure Evaluation Filed: 03/31/2024 10:48 Note Text: ANESTHESIOLOGY DAY OF SURGERY NOTE : 1940 Procedure Information Date/Time: 03/31/24 1115 Scheduled providers: Raymundo De León MD; Yvonne Manley MD; Kelsea Mo APRN.JESSICA Procedure: EGD DIAGNOSTIC Location: [facility] Endoscopy Estimated body mass index is 38.27 kg/m? as calculated from the following: Height as of 03/27/24: 165.1 cm (5' 5). Weight as of 03/27/24: 104.3 kg (230 lb). Most recent hematocrit and potassium results: Hematocrit 43.0 11/25/2023 Potassium 3.8 11/25/2023 Relevant Problems ANESTHESIA (+) JOSE on CPAP CARDIO (+) A-fib (HCC) (+) Cardiac resynchronization therapy pacemaker (CAS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-P) in place (+) WELCH (dyspnea on exertion) [...] a current smoker. NPO Status: adequate Beta Nicolle Monitoring Plan Monitoring plan: standard ASA. Post Procedure Analgesic Plan Postoperative analgesic plan: multimodal analgesia. Informed Consent Anesthetic risks, benefits, alternatives, personnel and consent discussed: yes. Patient / Responsible Republican agrees to proceed: yes Patient / Surrogate [...] Surgery/Procedure. SIGNATURE (more content not included)... Normal [facility] EGD Study observation Carline goode 03-31-2024 [facility] Gastrointestinal Endoscopy Patient Name: Michael Meier Procedure Date: 03/31/2024 10:20 AM Date of : 1940 Admit Type: Outpatient Age: 83 Room: [facility] Gender: Female Note Status: Finalized Attending MD: Raymundo De León MD, [id number] Procedure: Upper GI endoscopy Indications: Epigastric abdominal [...] be scheduled. Procedure Code(s): --- Professional --- 46478, Esophagogastroduodenoscopy, flexible, transoral; with biopsy, single or multiple Diagnosis Code(s): --- Professional --- K44.9, Diaphragmatic hernia without obstruction or gangrene K29.70, Gastritis, unspecified, without bleeding R10.13, Epigastric pain (more content not included)... PROVATION [facility] Radiology Study observation (narrative) [facility] HISTORY PHYSICALon HISTORY PHYSICAL HNO ID: [id number] Author: RAYMUNDO DE LEÓN MD Service: General Surgery Author Type: Physician Type: H&P Filed: 03/31/2024 10:47 Note Text: HISTORY AND PHYSICAL Michael Meier : 1940 REFERRING PHYSICIAN: Michael Puga [address] [facility] [address] CHIEF COMPLAINT: Patient presents with: Consult: EGD consultation, epigastric abdominal pain. HPI: Michael is a 83 year old female referred for endoscopy. Michael notes increasing in epigastric pain. Mihcael notes occasional heartburn. -Notes belching even without [...] was 01/[address] De León at [facility] Sedation:Midazolam 4 mg IV, Fentanyl 100 micrograms [...] Knee replacement, (more content not included)... Normal [facility] SURGICAL PATHOLOGYon 024 CASE REPORT [facility] Comment on above: Order Comment: Speci men Type: TISSUE SPECIMEN Ordering Facility: [facility] Address: [address] [place] [address] Result Comment: Surg ical Pathology Report Case: [id number] Authorizing Provider: Raymundo De León MD Collected: 03/31/2024 11:01 AM Ordering Location: [facility] Endoscopy Received: 03/31/2024 12:34 PM Pathologist: Tanna Nathan MD Specimens: A) - Small Bowel, Duodenum, Biopsy B) - Stomach, Biopsy, r/o H. Pylori C) - Esophagus, Distal, Biopsy D) - Esophagus, Mid, Biopsy Performed By: #### S #### [facility] CLIA [id number] [address] [place] [address] [place] FINAL DIAGNOSIS [facility] Comment on above: Order Comment: Speci men Type: TISSUE SPECIMEN Ordering Facility: [facility] Address: [address] [place] [address] Result Comment: A. S mall bowel, duodenum, [...] AEB/kr 04/04/2024 Performed By: #### S #### [facility] CLIA [id number] [address] [place] [address] [place] FINAL PERFORMING LAB Normal [facility] Comment on above: Order Comment: Speci men Type: TISSUE SPECIMEN Ordering Facility: [facility] Address: [address] [place] [address] Result Comment: Diag nostic interpretation performed at [facility], [address] [place] [address] CLIA# [id number] Early Childhood Education Coordinator: Todd Fields M.D. Performed By: #### S #### [facility] CLIA [id number] [address] [place] [address] [place] GROSS DESCRIPTION Normal [facility] Comment on above: Order Comment: Speci men Type: TISSUE SPECIMEN Ordering Facility: [facility] Address: [address] [place] [address] Result Comment: A. S mall Bowel, Duodenum, [...] 0.2 cm. Totally submitted in one cassette. [facility] March 31, 2024 3:19 PM Gross examination performed at [facility], [address] [place] [address] Performed By: #### S #### [facility] CLIA [id number] [address] [place] [address] [place] Upper GI endoscopyon 03-31-2 024 Upper GI endoscopy [facility] Gastrointestinal Endoscopy Patient Name: Michael Meier Procedure Date: 03/31/2024 10:20 AM Date of : 1940 Admit Type: Outpatient Age: 83 Room: [facility] Gender: Female Note Status: Finalized Attending MD: Raymundo De León MD, [id number] Procedure: Upper GI endoscopy Indications: Epigastric abdominal [...] be scheduled. Procedure Code(s): --- Professional --- 56733, Esophagogastroduodenoscopy, flexible, transoral; with biopsy, single or multiple Diagnosis Code(s): --- Professional --- K44.9, Diaphragmatic hernia without obstruction or gangrene K29.70, Gastritis, unspecified, without bleeding R10.13, Epigastric pain R12, Heartburn CPT copyright 2020 [employer]. All rights reserved. The codes documented in this report are preliminary and upon cnc manager review may be revised to meet current compliance requirements. Attending Participation: I personally performed the entire procedure. Scope In: 11:00:34 AM Scope Out: 11:04:24 AM MD Raymundo Juarez MD 03/31/2024 11:08:03 AM This report has been signed electronically by Raymundo De León MD Number of Addenda: 0 Note Initiated On: 03/31/2024 10:20 AM Estimated Blood Loss: Estimated blood loss was minimal. Normal [facility] HISTORY PHYSICALon HISTORY PHYSICAL HNO ID: [id number] Author: MARY FOSTER APRN.STEREOPTIC PROJECTION TOPOGRAPHER Service: ? Author Type: Nurse Practitioner Type: [...] Assessment: c/w statin Cardiac resynchronization therapy pacemaker (CAS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-P) in place Assessment: s/p 10/2021 ICD placement, 02/02/24 EF 60%, Pt has 6.5 years battery life remaining. Surgery is below umbilicus, NO pacemaker function programming necessary per CIED algorithm. Last interrogation scanned into chart from 01/28/24 A-fib (HCC) Assessment: paroxymal, following WHG, daily ASA therapy Pulmonary hypertension (HCC) Assessment: moderate, RSVP 66mmHg 02/02/24 TIA (transient ischemic attack) Assessment: hx 2019, daily ASA Disorder of carotid artery (HCC) [...] large neck Non-male patient STOP-Bang Score: 2 [id number] Score: Age: >=75 Sex: female CHF history: No Hypertension history: Yes Stroke/TIA/thromboembolism history: Yes Vascular disease history: No Diabetes history: No [id number] Score: 6 ARISCAT Score: Age: >80 Preoperative [...] - ANESTHESIA PLAN Anesthetic Plan: other Beta Nicolle Monitoring Plan Post Procedure Analgesic Plan Prepared [...] this ti (more content not included)... Normal [facility] CNTHERAPYon 03-23-2024 CNTHERAPY OT/PT/Speech Visit ( LDPT) MICHAEL MEIER ([id number]) 1940 F Date Time Provider Department 03/23/24 12:45 PM SARAH MERCHANT Date Time Provider Department Center 03/23/2024 12:45 PM [id number] MERCHANT [facility] Reason for Visit: Physical Therapy [503] [...] 1 tablet by mouth once daily. Normal [facility] CNTHERAPYon 03-20-2024 CNTHERAPY OT/PT/Speech Visit ( LDPT) MICHAEL MEIER ([id number]) 1940 F Date Time Provider Department 03/20/24 2:15 PM SARAH MERCHANT Date Time Provider Department Center 03/20/2024 2:15 PM [id number] MERCHANT [facility] Reason for Visit: Physical Therapy [503] [...] 1 tablet by mouth once daily. Normal [facility] CNTHERAPYon 03-16-2024 CNTHERAPY OT/PT/Speech Visit ( LDPT) MICHAEL MEIER ([id number]) 1940 F Date Time Provider Department 03/16/24 12:45 PM SARAH MERCHANT LDPT Date Time Provider Department Center 03/16/2024 12:45 PM [id number], CARLA LDPT [facility] Reason for Visit: Physical Therapy [503] [...] 1 tablet by mouth once daily. Normal [facility] CNTHERAPYon 03-14-2024 CNTHERAPY OT/PT/Speech Visit ( LDPT) MICHAEL MEIER ([id number]) 1940 F Date Time Provider Department 03/14/24 10:00 AM JOY SUN Date Time Provider Department Center 03/14/2024 10:00 AM [id number] SUNLDFRANTZ [facility] Reason for Visit: Physical Therapy [503] [...] 1 tablet by mouth once daily. Normal [facility] CNOVon 03-13-2024 [facility] Office Visit (GENSWS ) MICHAEL MEIER ([id number]) 1940 F Date Time Provider Department 03/13/24 2:30 PM SHARON JARRETT During your visit today, we recorded the following information about you: Temperature Pulse Blood pressure Weight 97.5 degrees 71/minute 184/75 105 kg Height 1.651 m Shaorn Jarrett APRN.STEREOPTIC PROJECTION TOPOGRAPHER 03/13/2024 2:47 PM Signed HISTORY AND PHYSICAL Michael Meier : 1940 REFERRING PHYSICIAN: Michael Puga [address] [facility] [address] CHIEF COMPLAINT: Patient presents with: Consult: EGD [...] was 01/[address] De León at [facility] Sedation:Midazolam 4 mg IV, Fentanyl 100 micrograms [...] HX APPENDECTO (more content not included)... Normal [facility] 03-13-2024 CNPN Telephone ([employer]) MICHAEL MEIER ([id number]) 1940 F Date Time Provider Department 03/13/24 RAYMUNDO DE LEÓN [facility] During your visit today, we recorded the following information about you: Joshua Mcdowell 03/13/2024 2:44 PM Signed 03-31-2024 EGD Elizabeth Mcdowell Allergies As of Date: 03/13/2024 Noted [...] - Fully Assessed Reason for Visit: 03-31-2024 EGD hay [Other] Prescriptions as of 04/03/2024 - [...] [E66.811] 03/07/2018 (more content not included)... Normal [facility] ([id number]) 1940 F Date Time Provider Department 03/08/24 [facility] During your visit today, we recorded [...] 03/08/2024 9:36 PM Signed Please inform patient Michael Shah DO Hossein Puga Barbara, RN 03/09/2024 3:14 PM Signed Called [...] 03/11/2015 B (more content not included)... Normal [facility] CNTHERAPYon 03-02-2024 CNTHERAPY OT/PT/Speech Visit ( LDPT) MICHAEL MEIER ([id number]) 1940 F Date Time Provider Department 03/02/24 12:45 PM SARAH MERCHANT Date Time Provider Department Center 03/02/2024 12:45 PM [id number], CARLA LDPT [facility] Reason for Visit: Physical Therapy [503] [...] tablet by mouth once daily. Normal [facility] 03-01-2024 [facility] Office Visit (FAMPWS ) MICHAEL MEIER ([id number]) 1940 F Date Time Provider Department 03/01/24 5:40 PM [facility] During your visit today, we recorded the following information about you: Temperature Pulse Respiration Blood pressure 97.1 degrees 64/minute 20/minute 144/80 Weight 101.2 kg Michael Puga DO 03/01/2024 10:37 PM Signed CC: Michael [...] at 1.6 with recent lab check at [employer] office in Jan at [facility] JOSE, she is using her Bipap each [...] Chronic dyspnea, has been fully evaluated by [employer] whom doesn't feel this is due to [...] COMPARTMENTS 11/15/2009 Knee replacement, total -Left - [facility] ARTHRP BARRYE CONDYLEANDPLATU MEDIALANDLAT COMPARTMENTS 12/30/2009 Right knee replaced COLONOSCOPY FLX DX W/COLLJ SPEC WHEN PFRMD 06/29/2017 Colonoscopy EGD 10/17/2020 EGD W/O [facility] SPEC VARICIES INJ 01/08/2022 ESOPHAGOGASTRODUODENOSCOPY [...] daily. sucralfa (more content not included)... [facility] MICHAEL MEIER ([id number]) 1940 F Date Time Provider Department 03/01/24 MICHAEL PUGA FAMPWS During your visit today, we recorded the following information about you: Michael Puga DO 03/01/2024 10:51 PM Signed Fax my office note from today and standard wheelchair [facility] and then notify her DO Brigette Dow [place], [place] 03/02/2024 1:33 PM Addendum Faxed to in [place]. Left message to return call. Please notify [...] BMI 37.0- (more content not included)... Normal [facility] CNTHERAPYon 02-17-2024 CNTHERAPY OT/PT/Speech Visit ( LDPT) MICHAEL MEIER ([id number]) 1940 F Date Time Provider Department 02/17/24 3:45 PM SARAH MERCHANT LDPT Date Time Provider Department Center 02/17/2024 3:45 PM [id number], CARLA LDPT [facility] Reason for Visit: PT Progress Note [...] 1 tablet by mouth once daily. Normal [facility] CNTHERAPYon 02-14-2024 CNTHERAPY OT/PT/Speech Visit ( LDPT) MICHAEL MEIER ([id number]) 1940 F Date Time Provider Department 02/14/24 1:30 PM WILFRED MCCLELLAN LDPT Date Time Provider Department Center 02/14/2024 1:30 PM [id number], PATRICK LDPT [facility] Reason for Visit: Physical Therapy [503] [...] 1 tablet by mouth once daily. Normal [facility] CNTHERAPYon 02-10-2024 CNTHERAPY OT/PT/Speech Visit ( LDPT) MICHAEL MEIER ([id number]) 1940 F Date Time Provider Department 02/10/24 12:45 PM SARAH MERCHANT LDPT Date Time Provider Department Center 02/10/2024 12:45 PM [id number], CARLA LDPT [facility] Reason for Visit: Physical Therapy [503] [...] 1 tablet by mouth once daily. Normal [facility] CNTHERAPYon 02-07-2024 CNTHERAPY OT/PT/Speech Visit ( LDPT) HARDEEPMICHAEL ([id number]) 1940 F Date Time Provider Department 02/07/24 2:15 PM SARAH MERCHANT LDPT Date Time Provider Department [place] 02/07/2024 2:15 PM [id number], CARLA LDPT [facility] Reason for Visit: Physical Therapy [503] [...] 1 tablet by mouth once daily. Normal [facility] Echo Completeon 02-02-2024 Echo Complete Normal [facility] CNTHERAPYon 01-31-2024 CNTHERAPY OT/PT/Speech Visit ( LDPT) MICHAEL MEIER ([id number]) 1940 F Date Time Provider Department 01/31/24 2:15 PM SARAH MERCHANT LDPT Date Time Provider Department Center 01/31/2024 2:15 PM [id number], CARLA LDPT [facility] Reason for Visit: Physical Therapy [...] 1 tablet by mouth once daily. Normal [facility] CNTHERAPYon 01-26-2024 CNTHERAPY OT/PT/Speech Visit ( LDPT) MICHAEL MEIER ([id number]) 1940 F Date Time Provider Department 01/26/24 3:00 PM WILFRED MCCLELLAN LDFRANTZ Date Time Provider Department Center 01/26/2024 3:00 PM [id number], PATRICK LDFRANTZ [facility] Reason for Visit: Physical Therapy [503] [...] 1 tablet by mouth once daily. Normal [facility] 12 Lead EKG performed by [facility] on 01-25-2024 12 Lead EKG performed by [facility] Normal [facility] BNP,B-Type NATRIURETIC PEPTI Kenyatta 01-25-2024 Natriuretic peptide B (Bld) [Mass/Vol] 127.2 pg/mL High 0-100 [facility] Comment on above: Performed By: #### L 501.9520, L500.2500, L503.6620 ####[facility] [address] [place], [address] Basic Metabolic Profile (BMP )on 01-25-2024 BUN/CRE 27.3 RATIO High 10-20 [facility] Comment on above: Performed By: #### L 501.9520, L500.2500, L503.6620 ####[facility] [address] [place], [address] CA,Total 8.9 mg/dL Normal 8.5-10.1 [facility] Comment on above: Performed By: #### L 501.9520, L500.2500, L503.6620 ####[facility] [address] [place], [address] Chloride [Moles/Vol] 105 mmol/L Normal 98-107 [facility] Comment on above: Performed By: #### L 501.9520, L500.2500, L503.6620 ####[facility] [address] [place], [address] CO2 [Moles/Vol] 30.0 mmol/L Normal 21.0-32.0 [facility] Comment on above: Performed By: #### L 501.9520, L500.2500, L503.6620 ####[facility] [address] [place], [address] Creatinine [Mass/Vol] 0.55 mg/dL Normal 0.55-1.02 [facility] Comment on above: Result Comment: The validity of the calculated GFR GFRAA in patients over70 years has not been determined. Clinical correlation isessential. Performed By: #### L 501.9520, L500.2500, L503.6620 ####[facility] [address] [place], [address] EST GFR - AA 136 mL/min Normal >60 [facility] Comment on above: Result Comment: Afri can Welsh GFR Calc Performed By: #### L 501.9520, L500.2500, L503.6620 ####[facility] [address] [place], [address] GAP 6 Normal 5-15 [facility] Comment on above: Performed By: #### L 501.9520, L500.2500, L503.6620 ####[facility] [address] [place], [address] GFR/1.73 sq M.predicted among non-blacks MDRD (S/P/Bld) [Vol rate/Area] 112 mL/min/{1.73_m2} Normal >60 [facility] Comment on above: Result Comment: Non- GFR Calc Performed By: #### L 501.9520, L500.2500, L503.6620 ####[facility] [address] [place], [address] Glucose [Mass/Vol] 109 mg/dL High 74-106 [facility] Comment on above: Result Comment: Fast ing Glucose result from 100 to 125 mg/dLsuggests IMPAIRED HOMEOSTASIS per A.D.A. criteria. Performed By: #### L 501.9520, L500.2500, L503.6620 ####[facility] [address] [place], [address] Potassium [Moles/Vol] 3.2 mmol/L Low 3.5-5.1 [facility] Comment on above: Performed By: #### L 501.9520, L500.2500, L503.6620 ####[facility] [address] [place], [address] Sodium [Moles/Vol] 141 mmol/L Normal 136-145 [facility] Comment on above: Performed By: #### L 501.9520, L500.2500, L503.6620 ####[facility] [address] [place], [address] Urea nitrogen [Mass/Vol] 15 mg/dL Normal 7-18 [facility] Comment on above: Performed By: #### L 501.9520, L500.2500, L503.6620 ####[facility] [address] [place], [address] Cardiology Visit Reporton Cardiology Visit Report Normal [facility] Thyroid Stim Hormone (TSH)on 01-25-2024 TSH 1.600 uIU/mL Normal 0.358-3.74 0 [facility] Comment on above: Performed By: #### L 501.9520, L500.2500, L503.6620 ####[facility] [address] [place], [address] [id number] 01-18-2024 [id number] HNO ID: [id number] Author: SARAH MERCHANT PT Service: ? Author Type: Physical Therapist Type: [id number] Filed: 01/18/2024 16:07 Note Text: [facility] Physical Therapy Plan of Care Certification Patient Name: Michael Meier : 1940 [facility] #: [id number] Date: 01/18/2024 To: Geeta Cadet,* From Therapist: Sarah Merchant [...] on 11/15/23 through 01/14/24, extended thru 04/17/24 [place] in home exercise program. Patient will demonstrate [...] Patient to be seen for Therapeutic exercise (72233), Neuromuscular re-education (15213), Therapeutic activities (40218), Self-group home management (50690), Gait Training (34196), Patient/Family/Caregiver Education, General Conditioning PLAN FOR NEXT VISIT: continue to progress LE strength, balance, gait AND endurance For further details regarding this patient refer to the Physical Therapy electronically documented visit dated 01/18/2024. Provider Attestation I have reviewed the treatment plan for Michael Meier, [facility]# [id number] for the period of 01/18/24 -- 04/17/24, established on 01/18/2024. Signature certifies the need for therapy services. Normal [facility] CNTHERAPYon 01-18-2024 CNTHERAPY OT/PT/Speech Visit ( LDPT) HARDEEPMICHAEL Deras ([id number]) 1940 F Date Time Provider Department 01/18/24 1:30 PM SARAH MERCHANT Date Time Provider Department Center 01/18/2024 1:30 PM [id number] MERCHANT [facility] Reason for Visit: PT Progress Note [...] by mouth once daily. [facility] MICHAEL MEIER ([id number]) 1940 F Date Time Provider Department 01/10/24 MICHAEL PUGA [facility] During your visit today, we recorded the following information about you: Carie Lora RN 01/10/2024 2:44 PM Signed Patient calling with request for script for standard wheelchair for weakness and gait instability due to back problems. If agree, please fax script to Kevin Flores. 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 Normal [facility] CNTHERAPYon 12-13-2023 CNTHERAPY OT/PT/Speech Visit ( LDPT) MICHAEL MEIER ([id number]) 1940 F Date Time Provider Department 12/13/23 3:45 PM SARAH MERCHANT Date Time Provider Department Center 12/13/2023 3:45 PM [id number], SARAH LDPT [facility] Reason for Visit: Physical Therapy [503] [...] 1 tablet by mouth once daily. Normal [facility] CNTHERAPYon 12-07-2023 CNTHERAPY OT/PT/Speech Visit ( LDPT) MICHAEL MEIER ([id number]) 1940 F Date Time Provider Department 12/07/23 4:30 PM WILFRED MCCLELLAN Date Time Provider Department Center 12/07/2023 4:30 PM [id number] MCCLELLAN [facility] Reason for Visit: Physical Therapy [503] [...] Take 1 tablet by mouth once daily. Pot Fluxer: Therapy (PT/OT/Speech/Resp) ID: [id number] 12/07/2023 5:18 PM Author: WILFRED MCCLELLAN Signed by WILFRED MCCLELLAN PTA on 12/07/2023 at 5:18 PM Document text: Program_ID:[id number] Access Code: [email or web address] URL: [email or web address] Date: 12-07-2023 Prepared By: Margoth Mcclellan Program Notes Exercises - Seated Hip Abduction - 1-2 x daily - 5 x weekly - 2-3 sets - 10 reps Normal [facility] THERAPY NTon 12-07-2023 THERAPY NT HNO ID: [id number] Author: WILFRED MCCLELLAN PTA Service: ? Author Type: Telephone Lineman Type: Therapy (PT/OT/Speech/Resp) Filed: 12/07/2023 17:18 Note Text: Program_ID:[id number] Access Code: [email or web address] URL: [email or web address] Date: 12-07-2023 Prepared By: Margoth Mcclellan Program Notes Exercises - Seated Hip Abduction - 1-2 x daily - 5 x weekly - 2-3 sets - 10 reps Normal [facility] CNOVon 12-01-2023 CNOV Office Visit (FAMPWS ) MICHAEL MEIER ([id number]) 1940 F Date Time Provider Department 12/01/23 1:20 PM [facility] During your visit today, we recorded the following information about you: Temperature Pulse Respiration Blood pressure 98 degrees 64/minute 24/minute 146/76 Weight 103 kg Michael Puga, 12/01/2023 2:33 PM Signed CC: Michaelalex Meier is a 83 year old female [...] CONDYLEANDPLATU MEDIALANDLAT COMPARTMENTS Comment: Knee replacement, total Left [facility] 12/30/2009: ARTHRP KNE CONDYLEANDPLATU MEDIALANDLAT COMPARTMENTS Comment: Right knee replaced 06/29/2017: COLONOSCOPY FLX DX W/COLLJ SPEC WHEN PFRMD Comment: Colonoscopy 10/17/2020: EGD Comment: 01/08/2022: EGD W/O [facility] SPEC VARICIES INJ 11/29/2000: ESOPHAGOGASTRODUODENOSCOPY [...] Leg cramps Sulfa (Sulfonamide * hives Vicodin [[place] (more content not included)... Normal [facility] Priscila 11-26-2023 [facility] Telephone (FAMPWS) MICHAEL MEIER ([id number]) 1940 F Date Time Provider Department 11/26/23 [...] CPAP [G47.33] (more content not included)... Normal [facility] CBC W Auto Differential pane l (Bld)on 11-25-2023 Basophils (Bld) [#/Vol] 0.10 10*3/uL Normal <0.11 [facility] Comment on above: Order Comment: Speci men Type: BLOOD SPECIMENOrdering Facility: [facility] Address: [address] [place] [address] Performed By: #### 5 7021-8 ####[facility] [place] LABCLIA [id number] [place] [address] [place] Basophils/100 WBC (Bld) 1.3 % Normal [facility] Comment on above: Order Comment: Speci men Type: BLOOD SPECIMENOrdering Facility: [facility] Address: [address] [place] [address] Performed By: #### 5 7021-8 ####[facility] [place] LABCLIA [id number] [address] [facility] [address] [place] Differential cell count method Nom (Bld) Auto Normal [facility] Comment on above: Order Comment: Speci men Type: BLOOD SPECIMENOrdering Facility: [facility] Address: [address] [place] [address] Performed By: #### 5 7021-8 ####[facility] [place] LABCLIA [id number] [address] [address] [place] Eosinophils (Bld) [#/Vol] 0.23 10*3/uL Normal <0.46 [facility] Comment on above: Order Comment: Speci men Type: BLOOD SPECIMENOrdering Facility: [facility] Address: [address] [place] [address] Performed By: #### 5 7021-8 ####[facility] [place] LABCLIA [id number] [place] [address] [place] Eosinophils/100 WBC (Bld) 3.0 % Normal [facility] Comment on above: Order Comment: Speci men Type: BLOOD SPECIMENOrdering Facility: [facility] Address: [address] [place] [address] Performed By: #### 5 7021-8 ####[facility] [place] LABCLIA [id number] [facility] [address] [place] Erythrocyte distribution width (RBC) [Ratio] 14.6 % Normal 11.5-15.0 [facility] Comment on above: Order Comment: Speci men Type: BLOOD SPECIMENOrdering Facility: [facility] Address: [address] [place] [address] Performed By: #### 5 7021-8 ####[facility] [place] LABCLIA [id number] [facility] [place] [address] [place] Hematocrit (Bld) [Volume fraction] 43.0 % Normal 36.0-46.0 [facility] Comment on above: Order Comment: Speci men Type: BLOOD SPECIMENOrdering Facility: [facility] Address: [address] [place] [address] Performed By: #### 5 7021-8 ####[facility] [place] LABCLIA [id number] [facility] [place] [address] [place] Hemoglobin (Bld) [Mass/Vol] 13.7 g/dL Normal 11.5-15.5 [facility] Comment on above: Order Comment: Speci men Type: BLOOD SPECIMENOrdering Facility: [facility] Address: [address] [place] [address] Performed By: #### 5 7021-8 ####[facility] [place] LABCLIA [id number] [facility] [place] [address] [place] Immature granulocytes (Bld) [#/Vol] 10*3/uL Normal <0.10 [facility] Comment on above: Order Comment: Speci men Type: BLOOD SPECIMENOrdering Facility: [facility] Address: [address] [place] [address] Performed By: #### 5 7021-8 ####[facility] [place] LABCLIA [id number] [facility] [address] [facility] OF ROB Immature granulocytes/100 WBC (Bld) 0.1 % Normal [facility] Comment on above: Order Comment: Speci men Type: BLOOD SPECIMENOrdering Facility: [facility] Address: [address] [place] [address] Performed By: #### 5 7021-8 ####[facility] LABCLIA [id number] [place], [place] [id number] [place] [address] [place] Lymphocytes (Bld) [#/Vol] 1.29 10*3/uL Normal 1.00-4.00 [facility] Comment on above: Order Comment: Speci men Type: BLOOD SPECIMENOrdering Facility: [facility] Address: [address] [place] [address] Performed By: #### 5 7021-8 ####[facility] LABCLIA [id number] [address] Lymphocytes/100 WBC (Bld) 16.9 % Normal [facility] Comment on above: Order Comment: Speci men Type: BLOOD SPECIMENOrdering Facility: [facility] Address: [address] [place] [address] Performed By: #### 5 7021-8 ####[facility] LABCLIA [id number] [place], [place] [address] [place] [address] [place] MCH (RBC) [Entitic mass] 29.7 pg Normal 26.0-34.0 [facility] Comment on above: Order Comment: Speci men Type: BLOOD SPECIMENOrdering Facility: [facility] Address: [address] [place] [address] Performed By: #### 5 7021-8 ####[facility] LABCLIA [id number] [place] [address] [place] MCHC (RBC) [Mass/Vol] 31.9 g/dL Normal 30.5-36.0 [facility] Comment on above: Order Comment: Speci men Type: BLOOD SPECIMENOrdering Facility: [facility] Address: [address] [place] [address] Performed By: #### 5 7021-8 ####[facility] LABCLIA [id number] [place] [address] [place] [address] [facility] MCV (RBC) [Entitic vol] 93.1 fL Normal 80.0-100.0 [facility] Comment on above: Order Comment: Speci men Type: BLOOD SPECIMENOrdering Facility: [facility] Address: [address] [place] [address] Performed By: #### 5 7021-8 ####[facility] [place] LABCLIA [id number] [facility] [address] [place] Monocytes (Bld) [#/Vol] 0.84 10*3/uL Normal <0.87 [facility] Comment on above: Order Comment: Speci men Type: BLOOD SPECIMENOrdering Facility: [facility] Address: [address] [place] [address] Performed By: #### 5 7021-8 ####[facility] [place] LABCLIA [id number] [place] [address] [place] Monocytes/100 WBC (Bld) 11.0 % Normal [facility] Comment on above: Order Comment: Speci men Type: BLOOD SPECIMENOrdering Facility: [facility] Address: [address] [place] [address] Performed By: #### 5 7021-8 ####[facility] [place] LABCLIA [id number] [facility] [address] [place] Neutrophils (Bld) [#/Vol] 5.18 10*3/uL Normal 1.45-7.50 [facility] Comment on above: Order Comment: Speci men Type: BLOOD SPECIMENOrdering Facility: [facility] Address: [address] [place] [address] Performed By: #### 5 7021-8 ####[facility] [place] LABCLIA [id number] [place] [address] [place] Neutrophils/100 WBC (Bld) 67.7 % Normal [facility] Comment on above: Order Comment: Speci men Type: BLOOD SPECIMENOrdering Facility: [facility] Address: [address] [place] [address] Performed By: #### 5 7021-8 ####[facility] [place] LABCLIA [id number] [facility] [place] [address] [place] Nucleated RBC (Bld) [#/Vol] Normal [facility] Comment on above: Order Comment: Speci men Type: BLOOD SPECIMENOrdering Facility: [facility] Address: [address] [place] [address] Performed By: #### 5 7021-8 ####[facility] [place] LABCLIA [id number] [facility] [place] [address] [place] Nucleated RBC/100 WBC (Bld) [Ratio] Normal [facility] Comment on above: Order Comment: Speci men Type: BLOOD SPECIMENOrdering Facility: [facility] Address: [address] [place] [address] Performed By: #### 5 7021-8 ####[facility] [place] LABCLIA [id number] [facility] [place] [address] [place] Platelet mean volume (Bld) [Entitic vol] 10.8 fL Normal 9.0-12.7 [facility] Comment on above: Order Comment: Speci men Type: BLOOD SPECIMENOrdering Facility: [facility] Address: [address] [place] [address] Performed By: #### 5 7021-8 ####[facility] [place] LABCLIA [id number] [facility] [address] [place] Platelets (Bld) [#/Vol] 223 10*3/uL Normal 150-400 [facility] Comment on above: Order Comment: Speci men Type: BLOOD SPECIMENOrdering Facility: [facility] Address: [address] [place] [address] Performed By: #### 5 7021-8 ####[facility] [place] LABCLIA [id number] [facility] [address] [place] RBC (Bld) [#/Vol] 4.62 10*6/uL Normal 3.90-5.20 [facility] Comment on above: Order Comment: Speci men Type: BLOOD SPECIMENOrdering Facility: [facility] Address: [address] [place], [place] [address] Performed By: #### 5 7021-8 ####[facility] LABCLIA [id number] [place] [address] [facility] WBC (Bld) [#/Vol] 7.65 10*3/uL Normal 3.70-11.00 [facility] Comment on above: Order Comment: Speci men Type: BLOOD SPECIMENOrdering Facility: [facility] Address: [address] [place], [place] [address] Performed By: #### 5 7021-8 ####[facility] [place] LABCLIA [id number] [place] [address] [facility] CNTHERAPYon 11-25-2023 CNTHERAPY OT/PT/Speech Visit ( LDPT) MICHAEL MEIER ([id number]) 1940 F Date Time Provider Department 11/25/23 8:30 AM SARAH MERCHANT LDFRANTZ Date Time Provider Department Center 11/25/2023 8:30 AM [id number], CARLA LDPT [facility] Reason for Visit: Physical Therapy [503] [...] 1 tablet by mouth once daily. Normal [facility] Comprehensive metabolic 2000 panelon 11-25-2023 Albumin [Mass/Vol] 4.3 g/dL Normal 3.9-4.9 [facility] Comment on above: Order Comment: Lori mosqueda Type: BLOOD SPECIMEN [facility] Address: [address] [place] [address] Performed By: #### 2 4323-8, 42055-7, 3016-3 #### [facility] [place] [facility] CLIA [id number] [address] [place], [place] [address] [place] [address] [place] [facility] ALP [Catalytic activity/Vol] 97 U/L Normal 34-123 [facility] Comment on above: Order Comment: Lori mosqueda Type: BLOOD SPECIMEN [facility] Address: [address] [place] [address] Performed By: #### 2 4323-8, 33906-2, 3016-3 #### [facility] CLIA [id number] [address] [place] [address] [place] ALT With P-5'-P [Catalytic activity/Vol] 23 U/L Normal 7-38 [facility] Comment on above: Order Comment: Lori mosqueda Type: BLOOD SPECIMEN [facility] Address: [address] [place] [address] Performed By: #### 2 4323-8, 58159-9, 3016-3 #### [facility] CLIA [id number] [address] [place] [address] [place] [facility] Anion gap [Moles/Vol] 14 mmol/L Normal 8-15 [facility] Comment on above: Order Comment: Speci men Type: BLOOD SPECIMEN [facility] Address: [address] [place] [address] Performed By: #### 2 4323-8, 26943-5, 6-3 #### [facility] [place] [facility] CLIA [id number] [address] [place] [address] [place] AST With P-5'-P [Catalytic activity/Vol] 25 U/L Normal 13-35 [facility] Comment on above: Order Comment: Speci men Type: BLOOD SPECIMEN [facility] Address: [address] [place] [address] Performed By: #### 2 4323-8, 07183-7, 3015-3 #### [facility] [place] [facility] CLIA [id number] [address] [place] [address] [place] Bilirubin [Mass/Vol] 0.7 mg/dL Normal 0.2-1.3 [facility] Comment on above: Order Comment: Speci men Type: BLOOD SPECIMEN [facility] Address: [address] [place] [address] Performed By: #### 2 4323-8, 35626-9, 3015-3 #### [facility] [place] [facility] CLIA [id number] [address] [place] [address] [place] Calcium [Mass/Vol] 9.3 mg/dL Normal 8.5-10.2 [facility] Comment on above: Order Comment: Speci men Type: BLOOD SPECIMEN [facility] Address: [address] [place], [place] [address] Performed By: #### 2 4323-8, 95957-6, 3015-3 #### [facility] [place] [facility] CLIA [id number] [address] [place] [address] [place] Chloride [Moles/Vol] 102 mmol/L Normal 98-107 [facility] Comment on above: Order Comment: Speci men Type: BLOOD SPECIMEN [facility] Address: [address] [place] [address] Performed By: #### 2 4323-8, 06999-5, 3016-3 #### [facility] CLIA [id number] [address] [place] [address] [facility] CO2 [Moles/Vol] 26 mmol/L Normal 22-30 [facility] Comment on above: Order Comment: Speci men Type: BLOOD SPECIMEN [facility] Address: [facility] [place] [address] Performed By: #### 2 4323-8, 13365-2, 6-3 #### [facility] CLIA [id number] [address] [place] [address] [facility] Creatinine [Mass/Vol] 0.64 mg/dL Normal 0.58-0.96 [facility] Comment on above: Order Comment: Speci men Type: BLOOD SPECIMEN [facility] Address: [facility] [place] [address] Performed By: #### 2 4323-8, 30466-2, 6-3 #### [facility] CLIA [id number] [address] Creatinine and Glomerular filtration rate.predicted panel (S/P/Bld) 88 mL/min/1.73m??? Normal >=60 [facility] Comment on above: Order Comment: Speci men Type: BLOOD SPECIMEN [facility] Address: [facility] [place] [address] Result Comment: Bina mated Glomerular Filtration Rate [...] actual GFR. Performed By: #### 2 4323-8, 45352-8, 3016-3 #### [facility] CLIA [id number] [address] [place] [address] [place] Glucose [Mass/Vol] 99 mg/dL Normal 74-99 [facility] Comment on above: Order Comment: Loir mosqueda Type: BLOOD SPECIMEN [facility] Address: [address] [place] [address] Result Comment: The [place] Diabetes Association (ADA) provides guidance for cutoff [...] Standards of Medical Care in Diabetes 2016, [place] Diabetes Association. Diabetes Care. 2016.39(Suppl 1). Performed By: #### 2 4323-8, 24508-1, 6-3 #### [facility] [place] [facility] CLIA [id number] [address] [place] [address] [place] Potassium [Moles/Vol] 3.8 mmol/L Normal 3.7-5.1 [facility] Comment on above: Order Comment: Lori mosqueda Type: BLOOD SPECIMEN [facility] Address: [address] [place] [address] Performed By: #### 2 4323-8, 97348-2, 6-3 #### [facility] [place] [facility] CLIA [id number] [address] [place] [address] [place] Protein [Mass/Vol] 6.8 g/dL Normal 6.3-8.0 [facility] Comment on above: Order Comment: Lori mosqueda Type: BLOOD SPECIMEN [facility] Address: [address] [place] [address] Performed By: #### 2 4323-8, 96993-2, 3016-3 #### [facility] [place] [facility] CLIA [id number] [address] [place] [address] [place] Sodium [Moles/Vol] 142 mmol/L Normal 136-144 [facility] Comment on above: Order Comment: Lori mosqueda Type: BLOOD SPECIMEN [facility] Address: [address] [place] [address] Performed By: #### 2 4323-8, 36124-3, 3016-3 #### [facility] CLIA [id number] [address] [place] [address] [place] Urea nitrogen [Mass/Vol] 10 mg/dL Normal 7-21 [facility] Comment on above: Order Comment: Lori mosqueda Type: BLOOD SPECIMEN [facility] Address: [address] [place] [address] Performed By: #### 2 4323-8, 37439-6, 3016-3 #### [facility] CLIA [id number] [address] [place] [address] [place] HbA1c (Bld)on 11-25-2023 Average glucose Estimated from glycated hemoglobin (Bld) [Mass/Vol] 97 mg/dL Normal [facility] Comment on above: Order Comment: Lori mosqueda Type: BLOOD SPECIMENOrdering Facility: [facility] Address: [address] [place] [address] Result Comment: eAG: (Estimated average glucose) is a calculated value from HgbA1c and is airline security representative of the average blood glucose level in the last 2-3 month period. Performed By: #### 5 5454-3 ####[facility] LABCLIA [id number] [place] [address] [place] HbA1c (Bld) [Mass fraction] 5.0 % Normal 4.3-5.6 [facility] Comment on above: Order Comment: Lori mosqueda Type: BLOOD SPECIMENOrdering Facility: [facility] Address: [address] [place] [address] Result Comment: Amer ican Diabetes Association guidelines indicate that patients with HgbA1c in the range 5.7-6.4% are at increased risk for development of diabetes, and intervention by lifestyle modification may be beneficial. HgbA1c greater or equal to 6.5% is considered diagnostic of diabetes. Performed By: #### 5 5454-3 ####[facility] LABCLIA [id number] [place] [address] [facility] OF ROB Lipid 1996 panelon 4 Cholesterol [Mass/Vol] 159 mg/dL Normal <200 [facility] Comment on above: Order Comment: Lori mosqueda Type: BLOOD SPECIMEN [facility] Address: [address] [place] [address] Result Comment: <200 mg/dL, Desirable 200-239 mg/dL, Borderline high >239 mg/dL, High Performed By: #### 2 4323-8, 39301-7, 6-3 #### [facility] CLIA [id number] [address] [place] [address] [facility] Cholesterol in HDL [Mass/Vol] 74 mg/dL Normal >39 [facility] Comment on above: Order Comment: Lori mosqueda Type: BLOOD SPECIMEN [facility] Address: [address] [place] [address] Result Comment: 40-5 9 mg/dL, Acceptable >59 mg/dL, High: Negative risk factor for coronary heart disease <40 mg/dL, Low: Positive risk factor for coronary heart disease Performed By: #### 2 4323-8, 71115-2, 6-3 #### [facility] CLIA [id number] [address] [place] [address] [facility] Cholesterol in LDL [Mass/Vol] 54 mg/dL Normal <100 [facility] Comment on above: Order Comment: [facility] Type: BLOOD SPECIMEN [facility] Address: [address] [place] [address] Result Comment: <100 mg/dL, Optimal 100-129 mg/dL, Near optimal/above optimal 130-159 mg/dL, Borderline high 160-189 mg/dL, High >189 mg/dL, Very high Secondary prevention optimal LDL Cholesterol levels are recommended to be < 70 mg/dL Performed By: #### 2 4323-8, 09764-2, 3016-3 #### [facility] [place] [facility] CLIA [id number] [address] [place] [address] [facility] Cholesterol in LDL/Cholesterol in HDL [Mass ratio] 0.73 {ratio} Normal <2.54 [facility] Comment on above: Order Comment: Lori mosqueda Type: BLOOD SPECIMEN [facility] Address: [address] [place] [address] Result Comment: Refe rence: 1. National Cholesterol Education Program ATP III Guideline At-A-Glance Quick Desk Reference: National Heart, Lung, and Blood [place]. National Institutes of Health. 2001: NIH Publication No. 01-3305. 2. An International Atherosclerosis Society position paper: global recommendations for the management of dyslipidemia: executive summary, Atherosclerosis. 2014: 232(2):410-413. Performed By: #### 2 4323-8, 12337-6, 3015-3 #### [facility] [place] [facility] CLIA [id number] [address] [place] [address] [place] [facility] Cholesterol in VLDL [Mass/Vol] 31 mg/dL High <30 [facility] Comment on above: Order Comment: Lori mosqueda Type: BLOOD SPECIMEN [facility] Address: [address] [place] [address] Performed By: #### 2 4323-8, 71663-5, 3 #### [facility] [place] [facility] CLIA [id number] [address] [place] [address] [facility] OF ROB Cholesterol non HDL [Mass/Vol] 85 mg/dL Normal <130 [facility] Comment on above: Order Comment: Lori mosqueda Type: BLOOD SPECIMEN [facility] Address: [address] [place] [address] Result Comment: <130 mg/dL, Optimal 130-159 mg/dL, Near optimal/above optimal 160-189 mg/dL, Borderline high 190-219 mg/dL, High >219 mg/dL, Very high Secondary prevention optimal non HDL Cholesterol levels are recommended to be <100 mg/dL Performed By: #### 2 4323-8, 21979-1, 3015-3 #### [facility] [place] [facility] CLIA [id number] [address] [place] [address] [place] Cholesterol.total/Chol esterol in HDL [Mass ratio] 2.15 {ratio} Normal <5.10 [facility] Comment on above: Order Comment: Speci men Type: BLOOD SPECIMEN [facility] Address: [address] [place] [address] Performed By: #### 2 4323-8, 57230-5, 3015-3 #### [facility] [place] [facility] CLIA [id number] [address] [place] [address] [facility] OF ROB FASTING TIME 12 hrs Normal [facility] Comment on above: Order Comment: Speci men Type: BLOOD SPECIMEN [facility] Address: [address] [place] [address] Performed By: #### 2 4323-8, 51103-1, 3015-3 #### [facility] [place] [facility] CLIA [id number] [address] [place] [address] [facility] OF ROB Triglyceride [Mass/Vol] 153 mg/dL High <150 [facility] Comment on above: Order Comment: Speci men Type: BLOOD SPECIMEN [facility] Address: [address] [place] [address] Result Comment: <150 mg/dL, Normal 150-199 mg/dL, Borderline high 200-499 mg/dL, High >499 mg/dL, Very high Performed By: #### 2 4323-8, 74472-9, 3015-3 #### [facility] [place] [facility] CLIA [id number] [address] [place] [address] [place] T3 SerPl-mCncon 11-25-2023 T3 [Mass/Vol] 99 ng/dL Normal 79-165 [facility] Comment on above: Order Comment: Speci men Type: BLOOD SPECIMENOrdering Facility: [facility] Address: [address] [place] [address] Performed By: #### 3 024-7, 3053-6 ####[facility]ORATORYCLIA [id number] [address] [facility] T4 Free SerPl-mCncon 11-24-2 024 Free T4 [Mass/Vol] 1.6 ng/dL Normal 0.9-1.7 [facility] Comment on above: Order Comment: Speci men Type: BLOOD SPECIMENOrdering Facility: [facility] Address: [address] [place] [address] Performed By: #### 3 024-7, 3053-6 ####[facility] LABORATORYCLIA [id number] [address] TSH SerPl-aCncon 11-25-2023 TSH Qn 4.510 m[IU]/L High 0.270-4.20 0 [facility] Comment on above: Order Comment: Speci men Type: BLOOD SPECIMENOrdering Facility: [facility] Address: [address] [place] [address] Performed By: #### 2 4323-8, 59631-5, 3016-3 ####[facility] LABCLIA [id number] [address] CNTHERAPYon 11-23-2023 CNTHERAPY OT/PT/Speech Visit ( LDPT) MICHAEL MEIER ([id number]) 1940 F Date Time Provider Department 11/23/23 2:15 PM SARAH MERCHANT LDPT Date Time Provider Department Center 11/23/2023 2:15 PM [id number], CARLA LDPT [facility] Reason for Visit: Physical Therapy [503] [...] 1 tablet by mouth once daily. Normal [facility] [id number] 11-15-2023 [id number] O ID: [id number] Author: SARAH MERCHANT PT Service: ? Author Type: Physical Therapist Type: [id number] Filed: 11/15/2023 18:46 Note Text: [facility] Physical Therapy Plan of Care Certification Patient Name: Michael Meier : 1940 [facility] #: [id number] Date: 11/15/2023 To: Geeta Cadet,* From Therapist: [...] of Care: created on 11/15/23 through 01/14/24 [place] in home exercise program. Patient will demonstrate [...] Planned: 15 Planned Treatment Interventions: Therapeutic exercise (84747), Neuromuscular re-education (18570), Therapeutic activities (49055), Self-group home management (80750), Gait Training (97936), Patient/Family/Caregiver Education, General Conditioning PLAN FOR NEXT [...] have reviewed the treatment plan for Michael Augusta Meier, [facility]# [id number] for the period of 11/15/23 -- 01/14/24, established on 11/15/2023. Signature certifies the need for therapy services. Normal [facility] CNTHERAPYon 11-15-2023 CNTHERAPY OT/PT/Speech Visit ( LDPT) MICHAEL MEIER ([id number]) 1940 F Date Time Provider Department 11/15/23 4:30 PM SARAH MERCHANT Date Time Provider Department Center 11/15/2023 4:30 PM [id number] MERCHANT [facility] Reason for Visit: PT Eval [747] [...] by mouth once daily. Letter Text Normal [facility] XR CHEST 2V FRONTAL/LATon [facility] EGD DIAGNOSTICon 01-08-2022 [facility] GLUCOSE, BLOOD (POC)on 10-20 Glucose [Mass/Vol] 116 mg/dL Abnormal 74 - 99 mg/dL [facility] UA DIP, URINE (POC)on 2021 BILIRUBIN UA (POCT) Negative Negative [facility] CLARITY UA (POCT) Clear [facility] COLOR UA (POCT) Wetzel [facility] GLUCOSE UA (POCT) 100 mg/dL Abnormal Negative mg/dL [facility] HEMOGLOBIN/BLOOD UA (POCT) Large Abnormal Negative [facility] KETONE UA (POCT) Trace Negative mg/dL [facility] LEUKOCYTES UA (POCT) Large Abnormal Negative [facility] NITRITE UA (POCT) Positive Abnormal Negative [facility] PH UA (POCT) 5.0 4.5 - 8.0 [facility] Protein Ql (U) 100 mg/dL Abnormal Negative mg/dL [facility] SPECIFIC GRAVITY UA (POCT) <=1.005 Abnormal 1.005 - 1.030 [facility] UROBILINOGEN UA (POCT) 4.0 E.U./dL Abnormal Eli l E.U./dL [facility] Basophil percentageon 2021 Chloride [Moles/Vol] 100 mmol/L 98-107 [facility] Work Phone: Glucose [Mass/Vol] 92 mg/dL 74-106 [facility] Work Phone: Potassium [Moles/Vol] 3.8 mmol/L 3.5-5.1 [facility] Work Phone: Comment on above: Slight Hemolysis, Re sult may be falsely increased. Sodium [Moles/Vol] 135 mmol/L 136-145 [facility] Work Phone: Laboratory - Chemistry and C hemistry - challengeon 09-10-2021 CO2 [Moles/Vol] 30.0 mmol/L 21.0-32.0 [facility] Work Phone: Urea nitrogen/Creatinine [Mass ratio] 19.7 mg/mg 10-20 [facility] Work Phone: No Panel Informationon 09-10 Estimated GFR (MDRD) Amer 82 mL/min >60 [facility] Work Phone: Comment on above: GFR Calc Estimated GFR (MDRD) Non-Af Amer 67 mL/min >60 [facility] Work Phone: Comment on above: Non- GFR Calc Serum or plasma calcium julee urement (mass/volume)on 09-10-2021 Calcium [Mass/Vol] 8.8 mg/dL 8.5-10.1 [facility] Work Phone: Serum or plasma creatinine m easurement (mass/volume)on 09-10-2021 Creatinine [Mass/Vol] 0.86 mg/dL 0.55-1.02 [facility] Work Phone: Comment on above: The validity of the calculated GFR & GFRAA in patients over 70 years has not been determined. Clinical correlation is essential. Serum or plasma urea nitroge n measurement (mass/volume)on 09-10-2021 Urea nitrogen [Mass/Vol] 17 mg/dL 7-18 [facility] Work Phone: Thin prep Papanicolaou smear with manual screeningon 09-10-2021 Thin prep Papanicolaou smear with manual screening 5 5-15 [facility] Work Phone: Basophil percentageon 2021 Basophil percentage 0 SEEN /hpf [facility] Work Phone: Chloride [Moles/Vol] 103 mmol/L 98-107 [facility] Work Phone: Glucose [Mass/Vol] 88 mg/dL 74-106 [facility] Work Phone: Potassium [Moles/Vol] 3.7 mmol/L 3.5-5.1 [facility] Work Phone: Sodium [Moles/Vol] 138 mmol/L 136-145 [facility] Work Phone: WBC (Bld) [#/Vol] 7.3 10*3/uL 4.4-11.0 [facility] Work Phone: Bilirubin Test strip Ql (U)o n 06-02-2021 Bilirubin Ql (U) Negative Negative [facility] Work Phone: Blood erythrocytes count (nu mber/volume)on 06-02-2021 RBC (Bld) [#/Vol] 4.57 10*6/uL 4.2-5.4 [facility] Work Phone: Blood hemoglobin measurement (mass/volume)on 06-02-2021 Hemoglobin (Bld) [Mass/Vol] 13.5 g/dL 12.0-15.0 [facility] Work Phone: [phone] Blood platelet mean volumeon 06-02-2021 Platelet mean volume (Bld) [Entitic vol] 10.3 fL 6.2-12.0 [facility] Work Phone: [phone] Determination of erythrocyte mean corpuscular volume (MCV)on 06-02-2021 MCV (RBC) [Entitic vol] 88.8 fL 81-99 [facility] Work Phone: [phone] Hematocrit Auto (Bld) [Volum e fraction]on 06-02-2021 Hematocrit (Bld) [Volume fraction] 40.6 % 37-47 [facility] Work Phone: [phone] INR in Blood by Coagulation assayon 06-02-2021 INR Coag (Bld) [Relative time] 1.1 {INR} [facility] Work Phone: Ketones Test strip Ql (U)on 06-02-2021 Ketones Ql (U) Negative Negative [facility] Work Phone: Laboratory - Chemistry and C hemistry - challengeon 06-02-2021 CO2 [Moles/Vol] 30.0 mmol/L 21.0-32.0 [facility] Work Phone: [phone] Urea nitrogen/Creatinine [Mass ratio] 18.6 mg/mg 10-20 [facility] Work Phone: [phone] Laboratory - Coagulationon 0 06-02-2021 PT Coag (PPP) [Time] 13.1 s 11.7-14.9 [facility] Work Phone: Laboratory - Hematology and Cell countson 06-02-2021 Erythrocyte distribution width (RBC) [Entitic vol] 45.3 fL 35.1-43.9 [facility] Work Phone: Erythrocyte distribution width (RBC) [Ratio] 13.9 % 11.6-14.6 [facility] Work Phone: MCH (RBC) [Entitic mass] 29.5 pg 27.0-32.0 [facility] Work Phone: MCHC Auto (RBC) [Mass/Vol]on 06-02-2021 MCHC (RBC) [Mass/Vol] 33.3 g/dL 32-36 [facility] Work Phone: Mucus LM Ql (Urine sed)on Mucus Ql (Urine sed) 0 SEEN /hpf [facility] Work Phone: Nitrite Test strip Ql (U)on 06-02-2021 Nitrite Ql (U) Negative Negative [facility] Work Phone: No Panel Informationon 06-02 Estimated GFR (MDRD) Amer 104 mL/min >60 [facility] Work Phone: Comment on above: GFR Calc Estimated GFR (MDRD) Non-Af Amer 86 mL/min >60 [facility] Work Phone: Comment on above: Non- GFR Calc Thyroid Stimulating Hormone (TSH) 1.91 uIU/mL 0.358-3.74 [facility] Work Phone: Platelets bldon 06-02-2021 Platelets (Bld) [#/Vol] 240 10*3/uL 150-450 [facility] Work Phone: Protein Test strip Ql (U)on 06-02-2021 Protein Ql (U) 15 mg/dl Negative [facility] Work Phone: Serum or plasma calcium julee urement (mass/volume)on 06-02-2021 Calcium [Mass/Vol] 8.6 mg/dL 8.5-10.1 [facility] Work Phone: Serum or plasma creatinine m easurement (mass/volume)on 06-02-2021 Creatinine [Mass/Vol] 0.70 mg/dL 0.55-1.02 [facility] Work Phone: Comment on above: The validity of the calculated GFR & GFRAA in patients over 70 years has not been determined. Clinical correlation is essential. Serum or plasma urea nitroge n measurement (mass/volume)on 06-02-2021 Urea nitrogen [Mass/Vol] 13 mg/dL 7-18 [facility] Work Phone: Squamous epithelial cells de tection in urine sediment by light microscopyon 06-02-2021 Epithelial cells.squamous LM Ql (Urine sed) 0 SEEN /hpf [facility] Work Phone: Thin prep Papanicolaou smear with manual screeningon 06-02-2021 Thin prep Papanicolaou smear with manual screening 5 5-15 [facility] Work Phone: Urine blood detectionon - RBC Ql (U) Negative Negative [facility] Work Phone: RBC Ql (U) 0 SEEN /hpf [facility] Work Phone: Urine clarityon 06-02-2021 Clarity (U) Sl. Cloudy Clear [facility] Work Phone: Urine color determinationon 06-02-2021 Color (U) Yellow Yellow [facility] Work Phone: Urine glucose detectionon Glucose Ql (U) Normal mg/dl Normal [facility] Work Phone: Urine leukocyte esterase det ection by dipstickon 06-02-2021 Leukocyte esterase Test strip Ql (U) 25 /ul Negative [facility] Work Phone: Urine pHon 06-02-2021 pH (U) 6.5 [pH] [facility] Work Phone: Urine sediment bacteria coun t by microscopy (number/high power field)on 06-02-2021 Bacteria LM.HPF (Urine sed) [#/Area] 1 /[HPF] None Seen [facility] Work Phone: Urine specific gravity measu rementon 06-02-2021 Specific gravity (U) [Rel density] 1.015 [facility] Work Phone: Urobilinogen Auto test strip Ql (U)on 06-02-2021 Urobilinogen Ql (U) Normal mg/dl Normal [facility] Work Phone: BASIC METABOLIC PANELon 08-2 Anion gap [Moles/Vol] 8 mmol/L Low 10 - 20 [facility] Comment on above: Performed By: #### B MP #### [address] [address] Calcium [Mass/Vol] 8.4 mg/dL Low 8.6 - 10.3 [facility] Comment on above: Performed By: #### B MP #### [address] [address] Chloride [Moles/Vol] 104 mmol/L Normal 98 - 107 [facility] Comment on above: Performed By: #### B MP #### [address] [address] Creatinine [Mass/Vol] 0.50 mg/dL Normal 0.50 - 1.05 [facility] Comment on above: Performed By: #### B MP #### [address] [address] GFR- AM. >60 Normal >60 [facility] Comment on above: Result Comment: CALC ULATIONS OF ESTIMATED GFR ARE PERFORMED USING THE MDRD STUDY EQUATION FOR THE IDMS-TRACEABLE CREATININE METHODS. CLIN CHEM 2007;53:766-72 Performed By: #### B MP #### [address] [address] GFR-NON AM. >60 Normal >60 [facility] Comment on above: Performed By: #### B MP #### [address] [address] Glucose [Mass/Vol] 90 mg/dL Normal 74 - 99 [facility] Comment on above: Performed By: #### B MP #### [address] [address] HCO3 (Bld) [Moles/Vol] 31 mmol/L Normal 21 - 32 [facility] Comment on above: Performed By: #### B MP #### [address] [address] Potassium [Moles/Vol] 3.8 mmol/L Normal 3.5 - 5.3 [facility] Comment on above: Performed By: #### B MP #### [address] [address] Sodium [Moles/Vol] 139 mmol/L Normal 136 - 145 [facility] Comment on above: Performed By: #### B MP #### [address] [address] Urea nitrogen [Mass/Vol] 10 mg/dL Normal 6 - 23 [facility] Comment on above: Performed By: #### B MP #### [address] [address] BNPon 12-21-2020 Natriuretic peptide B (Bld) [Mass/Vol] 212 pg/mL High 0 - 99 [facility] Comment on above: Result Comment: . <1 00 pg/mL - Heart failure unlikely 100-299 pg/mL - Intermediate probability of acute heart . failure exacerbation. Correlate with clinical . context and patient history. >=300 pg/mL - Heart Failure likely. Correlate with clinical . context and patient history. BNP testing is performed using different testing methodology at [facility] than at other [facility]. Direct result comparisons should only be made within the same method. Performed By: #### B NP2 #### [address] [address] CBC AND DIFFERENTIALon 12-21 Basophils (Bld) [#/Vol] 0.00 10*3/uL Normal 0.00 - 0.10 [facility] Comment on above: Performed By: #### C BCDF #### [address] [address] Basophils/100 WBC (Bld) 0.9 % Normal 0.0 - 2.0 [facility] Comment on above: Performed By: #### C BCDF #### [address] [address] Eosinophils (Bld) [#/Vol] 0.10 10*3/uL Normal 0.00 - 0.40 [facility] Comment on above: Performed By: #### C BCDF #### [address] [address] Eosinophils/100 WBC (Bld) 2.5 % Normal 0.0 - 6.0 [facility] Comment on above: Performed By: #### C BCDF #### [address] [address] Erythrocyte distribution width (RBC) [Ratio] 15.3 % High 11.5 - 14.5 [facility] Comment on above: Performed By: #### C BCDF #### [address] [address] Hematocrit (Bld) [Volume fraction] 38.9 % Normal 36.0 - 46.0 [facility] Comment on above: Performed By: #### C BCDF #### [address] [address] Hemoglobin (Bld) [Mass/Vol] 12.8 g/dL Normal 12.0 - 16.0 [facility] Comment on above: Performed By: #### C BCDF #### [address] [address] Lymphocytes (Bld) [#/Vol] 0.70 10*3/uL Low 0.80 - 3.00 [facility] Comment on above: Performed By: #### C BCDF #### [address] [address] Lymphocytes/100 WBC (Bld) 13.3 % Normal 13.0 - 44.0 [facility] Comment on above: Performed By: #### C BCDF #### [address] [address] MCHC (RBC) [Mass/Vol] 33.0 g/dL Normal 32.0 - 36.0 [facility] Comment on above: Performed By: #### C BCDF #### [address] [address] MCV (RBC) [Entitic vol] 88 fL Normal 80 - 100 [facility] Comment on above: Performed By: #### C BCDF #### [address] [address] Monocytes (Bld) [#/Vol] 0.60 10*3/uL Normal 0.05 - 0.80 [facility] Comment on above: Performed By: #### C BCDF #### [address] [address] Monocytes/100 WBC (Bld) 11.5 % Normal 2.0 - 10.0 [facility] Comment on above: Performed By: #### C BCDF #### [address] [address] Neutrophils (Bld) [#/Vol] 3.80 10*3/uL Normal 1.60 - 5.50 [facility] Comment on above: Result Comment: Perc ent differential counts (%) should be interpreted in the context of the absolute cell counts (cells/L). Performed By: #### C BCDF #### [address] [address] Neutrophils/100 WBC (Bld) 71.8 % Normal 40.0 - 80.0 [facility] Comment on above: Performed By: #### C BCDF #### [address] [address] NUCLEATED RBC 0.2 /100 WBC Normal [facility] Comment on above: Performed By: #### C BCDF #### [address] [address] Platelets (Bld) [#/Vol] 160 10*3/uL Normal 150 - 450 [facility] Comment on above: Performed By: #### C BCDF #### [address] [address] RBC 4.44 x10E12/L Normal 4.00 - 5.20 [facility] Comment on above: Performed By: #### C BCDF #### [address] [address] WBC (Bld) [#/Vol] 5.3 10*3/uL Normal 4.4 - 11.3 [facility] Comment on above: Performed By: #### C BCDF #### [place] [address] CHEST 1 VIEWon 12-21-2020 CHEST 1 VIEW Patient Name: MICHAEL MEIER STUDY: CHEST 1 VIEW; 12/21/2020 3:49 pm INDICATION: SOB. COMPARISON: None. ACCESSION NUMBER(S): [id number] ORDERING CLINICIAN: BERNIE BARAJAS FINDINGS: CARDIOMEDIASTINAL SILHOUETTE: [...] Electronically signed by: TIFF FELDMAN MD Normal [facility] CORONAVIRUS 2019 BY PCRon SARS-CoV-2 (COVID-19) RNA DUSTIN+probe Ql (Unsp spec) Not detected Normal Not Detected [facility] Comment on above: Result Comment: . This test has received FDA Emergency Use Authorization (EUA) and has been verified by [facility]. This test is only authorized for the duration of time that circumstances exist to justify the authorization of the emergency use of in vitro diagnostic tests for the detection of SARS-CoV-2 virus and/or diagnosis of COVID-19 infection under section 564(b)(1) of the Act, 21 U.S.C. 360bbb-3(b)(1), unless the authorization is terminated or revoked sooner. [facility] is certified under CLIA-88 as qualified to perform high complexity testing. Testing is performed in the [facility] laboratory located at [address] [place] [address]. SARS-CoV-2/Flu/RSV Multiplex Test: Fact sheet for providers: https://www.fda.gov/media/506306/download Fact sheet for patients: https://www.fda.gov/media/990055/download Performed By: #### C OV19 ####[address] [address] DATE OF SYMPTOM ONSET [YYYYMMDD]? [id number] [facility] Comment on above: Performed By: #### C OV19 ####[address] [address] Lab Specimen Source Nasal, Nasopharyngeal [facility] Comment on above: Performed By: #### C OV19 ####[address] [address] Covid 19 Resultson 1 SARS-CoV-2 (COVID-19) RNA [...] You may also be contacted by the [facility] to see if any of your close [...] or Naproxen (Aleve) can also be used. Dosl-pdn-ccnabtq cough and cold medicines can be used according to the instructions on the package. Some unba-ftg-ktiiqar medicines also contain acetaminophen. Make sure you [...] water are not available, use alcohol-based hand senior games technician. Avoid touching your eyes, nose, and mouth [...] for 24 flakito (more content not included)... [facility] Narrative Note - Outpatiento n 12-21-2020 Narrative Note - Outpatient Narrative Note: Description Patient presented to the clinic today for evaluation of cough, wheezing/shortness of breath, chest discomfort, and known exposure to COVID-19. Visibly dyspneic upon initial presentation to the help desk rep; SpO2 checked and was 94%. In light of symptoms (and as we do not have nebulizer treatments available in this urgent care), advised would be best to seek care at the ER [facility]. Patient verbalized understanding and agreed; no questions/concerns verbalized. Declined offer for emergency transport. Electronic Signatures: Kat Gleason (HOUSE DIRECTOR-STEREOPTIC PROJECTION TOPOGRAPHER) (Signed 21-Dec-2020 14:56) Authored: Narrative Note - OP Last Updated: 21-Dec-2020 14:56 by Kat Gleason (HOUSE DIRECTOR-STEREOPTIC PROJECTION TOPOGRAPHER) [facility] Provider Note - ED v3on 12-02 Provider Note - ED v3 Provider Note: [...] Authorization (EUA) and has been verified by [facility]. This test is only authorized for [...] independently She is placed on a continuous threat monitoring analyst with pulse oximetry monitoring. Old records and [...] computer instructions (more content not included)... Normal [facility] Risk Screen - Adult Emergenc yon 12-21-2020 Risk Screen - Adult Emergency Preferred Language: Preferred Language: Preferred Language for Discussing Health Care (patient/designee)Lithuanian Advanced Directives: Advance Directive/DNRno Family Violence Adult: Abuse Screen: Are you or have you been threatened or abused physically, emotionally, or sexually by anyoneno Learning Assessment (Patient): Learning Assessment (Patient): Patient is Able to be Assessed for Learningyes Factors Influencing Readiness to Learnacuteness of illness Factors that Impact Ability to Learnnone Devices/Methods Used to Communicatenone Learning Preferencesaudio Cultural Considerationsnone Developmental Considerationsnone Episcopal Considerationsnone Learning Assessment (Other Learner): Learning Assessment (Other Learner): Other learner availableno Pressure Injury/TB/Substance: Pressure Injury: Pressure Injury Present on Admissionno Do you have a coughyes... Has your cough lasted longer than 2 weeksno Smoking Statusnever smoker Alcohol Usedenies Drug Usedenies Drug 2 Usedenies Admission Risk Screen: Significant IndicatorsComplete CAGE: CAGE: Is this an injured patient at a Trauma Center ([facility]/[place]): no Electronic Signatures: Kimberlee Albarran (GLYNN) (Signed 21-Dec-2020 15:07) Authored: Preferred Language, Advanced Directives, Family Violence Adult, Learning Assessment (Patient), Learning Assessment (Other Learner), Pressure Injury/TB/Substance, Pressure Injury, CAGE Last Updated: 21-Dec-2020 15:07 by Kimberlee Albarran (GLYNN) Normal [facility] TROPONIN Ion 12-21-2020 Troponin I.cardiac [Mass/Vol] ng/mL Normal 0.00 - 0.03 [facility] Comment on above: Result Comment: LESS THAN [...] is performed using different testing methodology at [facility] than at other [facility]. Direct result comparisons should only be made within the same method. Performed By: #### T ROP2 #### [place] [id number] [place] [id number] Triage - EDon 12-21-2020 Triage - ED [...] Accompanied By: self Language: Spoken Language Preferred: Lithuanian Reading Language Preferred: Lithuanian Open Soaper Tender Requested: no accounting manager was requested MDRO: History of MDRO: no [...] BMI (kg/m2): 35.952 Calculated BSA (m2) 2.12 [place] Coma Scale: Best Eye Response: (E4) spontaneous Best Motor Response: (M6) obeys commands Best Verbal Response: (V5) oriented [place] Score: 15 Cough lasting greater than 3 [...] Past Medical History Reviewedyes Electronic Signatures: Kimberlee Albarran (GLYNN) (Signed 21-Dec-2020 15:06) Entered: Risk Screens, Pain, Arrival, ABCD, Immunizations, Travel History, Chart Review, Scores, Past Medical History Authored: Quick Triage, Risk Screens, Pain, Arrival, ABCD, Immunizations, Travel History, Chart Review, Scores, Past Medical History Last Updated: 21-Dec-2020 15:06 by Kimberlee Albarran (GLYNN) [facility] Office Visiton 10-22-2016 Documentation of current medications (procedure) Done Invalid Interpretation Code [employer] Work Phone: Fall risk assessment Yes Invalid Interpretation Code [employer] Work Phone: Clinical Lists Update: 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 Left ventricular Ejection fraction 55 % Invalid Interpretation Code [employer] Work Phone: Office Visit: [facility] 04-15-20 Dietary management education, guidance, and counseling (procedure) yes Invalid Interpretation Code [facility] Work Phone: [phone] Protein mass conc Done [facility] Work Phone: [phone] Lab Report: Basic Metabolic Profile (BMP)on 05-28-2015 Anion gap 7 mmol/L Invalid Interpretation Code 5-15 [facility] Work Phone: [phone] Anion gap molar conc 7 mmol/L 5-[address] [facility] Work Phone: [phone] Calcium mass conc 8.8 mg/dL Invalid Interpretation Code 8.5-10.1 [facility] Work Phone: [phone] Chloride molar conc 106 mmol/L Invalid Interpretation Code 98-107 [facility] Work Phone: [phone] CO2 32.0 mmol/L Invalid Interpretation Code 21.0-32.0 [facility] Work Phone: [phone] CO2 ppres (BldV) 32.0 mmol/L 21.0-32.0 [facility] Work Phone: [phone] Creatinine mass conc 0.64 mg/dL Invalid Interpretation Code 0.55-1.20 [facility] Work Phone: [phone] eGFR (non-black) 117 mL/min/{1.73_m2} Invalid Interpretation Code >60 [facility] Work Phone: [phone] EST GFR - AA 117 mL/min >60 [facility] Work Phone: [phone] GFR/1.73 sq M predicted among non-blacks MDRD vol rate/area (S/P/Bld) 97 mL/min/{1.73_m2} Invalid Interpretation Code >60 [facility] Work Phone: [phone] Glucose 84 mg/dL Invalid Interpretation Code 70-110 [facility] Work Phone: [phone] Glucose mass conc 84 mg/dL 70-110 [facility] Work Phone: [phone] Potassium molar conc 4.6 mmol/L Invalid Interpretation Code 3.5-5.1 [facility] Work Phone: [phone] Sodium molar conc 145 mmol/L Invalid Interpretation Code 136-145 [facility] Work Phone: [phone] Urea nitrogen mass conc 12 mg/dL Invalid Interpretation Code 7-18 [facility] Work Phone: [phone] Urea nitrogen/Creatinine mass ratio 18.8 RATIO Invalid Interpretation Code 10-20 [facility] Work Phone: [phone] Office Visiton 05-28-2015 General cardiovascular disease 10Y risk [#] [place]D'Agostino 11 % Invalid Interpretation Code [facility] Work Phone: [phone] Tobacco smoking status NHIS Never smoker [facility] Work Phone: [phone] Tobacco use CP Never smoker Invalid Interpretation Code [facility] Work Phone: [phone] 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 Cholesterol in HDL mass conc 63 mg/dL Invalid Interpretation Code [facility] Work Phone: [phone] Cholesterol in LDL mass conc 138 mg/dL High [employer] Work Phone: [phone] Cholesterol in LDL/Cholesterol in HDL mass ratio 2.19 Invalid Interpretation Code [facility] Work Phone: [phone] Cholesterol mass conc 227 mg/dL High [employer] Work Phone: [phone] Cholesterol.total/Chol esterol in HDL mass ratio 3.60 {ratio} Invalid Interpretation Code [facility] Work Phone: [phone] Lipoprotein.pre-beta mass conc 26 mg/dL Invalid Interpretation Code [facility] Work Phone: [phone] Thyrotropin Qn 2.560 u[iU]/mL Invalid Interpretation Code [facility] Work Phone: [phone] Triglyceride mass conc 128 mg/dL Invalid Interpretation Code [facility] Work Phone: [phone] Replaced Document: [employer] E CG Observationson 11-22-2014 EKG QRS axis 8 deg [employer] Work Phone: [phone] electrocardiogram interpretation Sinus Rhythm -First degree A-V block Lisa = 246BORDERLINE RHYTHM Invalid Interpretation Code [employer] Work Phone: [phone] GE use only - for [employer] import when terms are not otherwise specified 452 ms Invalid Interpretation Code [facility] Work Phone: Interpretation Sinus Rhythm -First degree A-V block Lisa = 246BORDERLINE RHYTHM [employer] Work Phone: P [place] -15 deg [employer] Work Phone: P wave axis, electrocardiogram -15 deg Invalid Interpretation Code [facility] Work Phone: AL Interval 246 ms [employer] Work Phone: AL interval, electrocardiogram 246 ms Invalid Interpretation Code [facility] Work Phone: Pulse (Heart Rate) 60 /min Invalid Interpretation Code [facility] Work Phone: QRS axis, electrocardiogram 8 deg Invalid Interpretation Code [facility] Work Phone: QRS Duration 106 ms [facility] Work Phone: QRS duration, electrocardiogram 106 ms Invalid Interpretation Code [facility] Work Phone: QT Interval new path ms [employer] Work Phone: QT interval, electrocardiogram new path ms Invalid Interpretation Code [employer] Work Phone: QTc [place] 452 ms [employer] Work Phone: T [place] 21 deg [employer] Work Phone: T wave axis, electrocardiogram 21 deg Invalid Interpretation Code [employer] Work Phone: [phone] Office Visiton 05-25-2014 cardiac risk group B Invalid Interpretation Code [facility] Work Phone: [phone] Lab Report: CBCDon 4 Absolute Neutrophil count 5.4 X10 3/UL Normal 2.0-7.7 [facility] Work Phone: [phone] ANC 5.4 X10 3/UL Normal 2.0-7.7 [facility] Work Phone: [phone] Basophils/100 leukocytes 0.6 % Normal 0-1 [facility] Work Phone: [phone] Basophils/100 WBC (Bld) 0.6 % Normal 0-1 [employer] Work Phone: Eosinophils/100 leukocytes 1.4 % Normal 0-5 [facility] Work Phone: Eosinophils/100 WBC (Bld) 1.4 % Normal 0-5 [facility] Work Phone: Erythrocytes (RBC) 4.95 10*6/uL Normal 4.2-5.[address] [facility] Work Phone: Hematocrit (HCT) 41.6 % Normal 37-47 [facility] Work Phone: Hematocrit Volume Fraction (Bld) 41.6 % Normal 37-47 [facility] Work Phone: Hemoglobin mass conc (Bld) 14.4 g/dL Normal 12.0-15.0 [facility] Work Phone: Lymphocytes/100 leukocytes 23.0 % Normal 19-41 [facility] Work Phone: Lymphocytes/100 WBC (Bld) 23.0 % Normal 19-41 [facility] Work Phone: MCH 29.1 pg Normal 27.0-32.0 [facility] Work Phone: MCH Entitic mass (RBC) 29.1 pg Normal 27.0-32.0 [facility] Work Phone: MCHC 34.6 G/GL Normal 32-36 [facility] Work Phone: MCHC mass conc (RBC) 34.6 G/GL Normal 32-[address] [facility] Work Phone: MCV 84.0 fL Normal 81-99 [facility] Work Phone: MCV Entitic volume (RBC) 84.0 fL Normal 81-99 [facility] Work Phone: Monocytes/100 leukocytes 8.0 % Normal 0-10 [facility] Work Phone: Monocytes/100 WBC (Bld) 8.0 % Normal 0-10 [facility] Work Phone: Neutrophils/100 leukocytes 66.9 % Normal 47-70 [facility] Work Phone: Neutrophils/100 WBC (Bld) 66.9 % Normal 47-70 [facility] Work Phone: [phone] Platelet mean volume Entitic volume (Bld) 10.7 fL Normal 6.2-12.0 [facility] Work Phone: [phone] Platelets 209 10*3/mm3 Normal 150-450 [facility] Work Phone: [phone] Platelets #/vol (Bld) 209 10*3/mm3 Normal 150-450 [facility] Work Phone: [phone] PMV by [place] 10.7 fL Normal 6.2-12.0 [facility] Work Phone: [phone] RBC #/vol (Bld) 4.95 10*6/uL Normal 4.2-5.4 [facility] Work Phone: [phone] WBC #/vol (Bld) 8.1 10*3/uL Normal 4.4-11.0 [facility] Work Phone: [phone] WBC (Leukocytes) 8.1 10*3/uL Normal 4.4-11.0 [facility] Work Phone: [phone] Lab Report: MGon 07-19-2013 Magnesium mass conc 1.9 mg/dL Normal 1.8-2.4 [facility] Work Phone: [phone] Lab Report: T4on 05-18-2012 T4 mass conc 11.9 ug/dL Normal 4.8-13.9 [facility] Work Phone: [phone] Lab Report: PTon 05-06-2011 INR Coag RelTime (PPP) 1.0 {INR} Normal [facility] Work Phone: [phone] INR in blood by coagulation 1.0 {INR} Normal [facility] Work Phone: [phone] prothrombin time, actual/normal, ratio 12.8 SECONDS Normal 11.9-14.4 [facility] Work Phone: [phone] PTP 12.8 SECONDS Normal 11.9-14.4 [facility] Work Phone: [phone] Lab Report: PTTon 05-06-2011 aPTT Coag time (Bld) 26 s Normal 24.1-36.2 [facility] Work Phone: Replaced Document: Hyun Esqueda 05-05-2011 Pulse (Heart Rate) 420 ms Invalid Interpretation Code [facility] Work Phone: [phone] Vital Signs Date Time Vital Sign Value Performing Clinician Facility 12-03-2024 14:55-0400 Body temperature 97.5 [degF] Dr. Michael Puga DO Work Phone: 9(344)352-864768 [place] [address] 12-03-2024 14:55-0400 Diastolic blood pressure 55 mm[Hg] Dr. Michael Puga DO Work Phone: 4(448)052-081828 [place] [address] 12-03-2024 14:55-0400 Heart rate 61 /min Dr. Michael Puga DO Work Phone: 4(160)853-250328 [place] [address] 12-03-2024 14:55-0400 Respiratory rate 18 /min Dr. Michael Puga DO Work Phone: 8(792)526-592468 [place] [address] 12-03-2024 14:55-0400 SaO2% (BldA) [Mass fraction] 96 % Dr. Michael Puga DO Work Phone: 7(318)190-512968 [place] [address] 12-03-2024 14:55-0400 Systolic blood pressure 154 mm[Hg] Dr. Michael Puga DO Work Phone: 4(444)771-840268 [place] [address] 12-03-2024 06:00-0400 Body mass index (BMI) [Ratio] 40.1 kg/m2 Dr. Michael Puga DO Work Phone: 3(720)487-951268 [place] [address] 12-03-2024 06:00-0400 Body weight 109.[address] Michael Puga DO Work Phone: 6(267)112-330428 [place] [address] 12-03-2024 03:35-0400 Inhaled oxygen flow rate 2 L/min Dr. Michael Puga DO Work Phone: 9(889)117-887268 [place] [address] 11-30-2024 15:27-0400 Body height 165.[address] Michael Puga DO Work Phone: 8(002)276-559028 [place] [address] 11-29-2024 22:31-0400 Body temperature 98 [degF] Dr. Michael Puga DO Work Phone: 7(876)522-119328 [place] [address] 11-29-2024 22:31-0400 Diastolic blood pressure 56 mm[Hg] Dr. Michael Puga DO Work Phone: 6(438)162-069328 [place] [address] 11-29-2024 22:31-0400 Heart rate 61 /min Dr. Michael Puga DO Work Phone: 3(751)065-009028 [place] [address] 11-29-2024 22:31-0400 Respiratory rate 17 /min Dr. Michael Puga DO Work Phone: 8(727)150-735528 [place] [address] 11-29-2024 22:31-0400 SaO2% (BldA) [Mass fraction] 92 % Dr. Michael Puga DO Work Phone: 1(938)944-227828 [place] [address] 11-29-2024 22:31-0400 Systolic blood pressure 146 mm[Hg] Dr. Michael uPga DO Work Phone: 8(918)526-548128 [place] [address] 11-29-2024 15:58-0400 Body height 165.[address] Michael Puga DO Work Phone: 1(464)952-540328 [place] [address] 11-29-2024 15:58-0400 Body mass index (BMI) [Ratio] 41.8 kg/m2 Dr. Michael Puga DO Work Phone: 1(236)201-865728 [place] [address] 11-29-2024 15:58-0400 Body weight 114.[address] Michael Puga DO Work Phone: 5(017)697-923128 [place] [address] 11-02-2024 09:50-0400 Body height 165.[address] Michael Puga DO Work Phone: 4(567)865-867128 [place] [address] 11-02-2024 09:46-0400 Body mass index (BMI) [Ratio] 39.4 kg/m2 Dr. Michael Puga DO Work Phone: 7(509)533-157328 [place] [address] 11-02-2024 09:46-0400 Body weight 107.[address] Michael Puga DO Work Phone: [facility] 11-02-2024 09:46-0400 Diastolic blood pressure 62 mm[Hg] Dr. Michael Puga DO Work Phone: [facility] 11-02-2024 09:46-0400 Heart rate 59 /min Dr. Michael Puga DO Work Phone: [facility] 11-02-2024 09:46-0400 Respiratory rate 18 /min Dr. Michael Puga DO Work Phone: [facility] 11-02-2024 09:46-0400 Systolic blood pressure 152 mm[Hg] Dr. Michael Puga DO Work Phone: [facility] 10-27-2024 12:00-0400 Diastolic blood pressure 52 mm[Hg] Sarah Merchant PT Work Phone: [facility] 10-27-2024 12:00-0400 Heart rate 63 /min Sarah Merchant PT Work Phone: [facility] 10-27-2024 12:00-0400 SaO2% (BldA) [Mass fraction] 96 % Sarah Merchant PT Work Phone: [facility] 10-27-2024 12:00-0400 Systolic blood pressure 152 mm[Hg] Sarah Merchant PT Work Phone: [facility] 08-30-2024 15:17-0400 Body mass index (BMI) [Ratio] 38.27 kg/m2 Michael Levyrison DO Work Phone: [facility] 08-30-2024 15:17-0400 Body temperature 97 [degF] Michael Puga DO Work Phone: [facility] 08-30-2024 15:17-0400 Body weight 104.33 kg Michael Puga DO Work Phone: [facility] 08-30-2024 15:17-0400 Diastolic blood pressure 64 mm[Hg] Michael Puga DO Work Phone: [facility] 08-30-2024 15:17-0400 Heart rate 64 /min Michael Puga DO Work Phone: [facility] 08-30-2024 15:17-0400 Respiratory rate 20 /min Michael Puga DO Work Phone: [facility] 08-30-2024 15:17-0400 Systolic blood pressure 148 mm[Hg] Michael Puga DO Work Phone: [facility] 08-17-2024 15:17-0400 Diastolic blood pressure 68 mm[Hg] Asia Sherry HOUSE DIRECTOR.STEREOPTIC PROJECTION TOPOGRAPHER Work Phone: [facility] 08-17-2024 15:17-0400 Heart rate 61 /min Asia Sherry HOUSE DIRECTOR.STEREOPTIC PROJECTION TOPOGRAPHER Work Phone: [facility] 08-17-2024 15:17-0400 SaO2% (BldA) [Mass fraction] 98 % Asia Sherry HOUSE DIRECTOR.STEREOPTIC PROJECTION TOPOGRAPHER Work Phone: [facility] 08-17-2024 15:17-0400 Systolic blood pressure 136 mm[Hg] Asia Sherry HOUSE DIRECTOR.STEREOPTIC PROJECTION TOPOGRAPHER Work Phone: [facility] 06-21-2024 17:27-0500 Body mass index (BMI) [Ratio] 36.78 kg/m2 Michael Puga DO Work Phone: [facility] 06-21-2024 17:27-0500 Body temperature 97.7 [degF] Michael Puga DO Work Phone: [facility] 06-21-2024 17:27-0500 Body weight 100.25 kg Michael Puga DO Work Phone: [facility] 06-21-2024 17:27-0500 Diastolic blood pressure 70 mm[Hg] Michael Puga DO Work Phone: [facility] 06-21-2024 17:27-0500 Heart rate 64 /min Michael Puga DO Work Phone: [facility] 06-21-2024 17:27-0500 Respiratory rate 20 /min Michael Puga DO Work Phone: [facility] 06-21-2024 17:27-0500 Systolic blood pressure 160 mm[Hg] Michael Puga DO Work Phone: [facility] 06-01-2024 13:20-0500 Body height 165.[address] Michael Puga DO Work Phone: [facility] 06-01-2024 13:20-0500 Body mass index (BMI) [Ratio] 36.6 kg/m2 Dr. Michael Puga DO Work Phone: 4(079)742-032268 [place] [address] 06-01-2024 13:20-0500 Body weight 99.[address] Michael Puga DO Work Phone: 1(525)996-592328 [place] [address] 06-01-2024 13:20-0500 Diastolic blood pressure 73 mm[Hg] Dr. Michael Puga DO Work Phone: 9(024)894-474028 [place] [address] 06-01-2024 13:20-0500 Heart rate 60 /min Dr. iMchael Puga DO Work Phone: 3(551)692-266328 [place] [address] 06-01-2024 13:20-0500 Respiratory rate 18 /min Dr. Michael Puga DO Work Phone: 5(024)323-857128 [place] [address] 06-01-2024 13:20-0500 SaO2% (BldA) [Mass fraction] 96 % Dr. Michael Puga DO Work Phone: 0(036)842-202168 [place] [address] 06-01-2024 13:20-0500 Systolic blood pressure 161 mm[Hg] Dr. Michael Puga DO Work Phone: 5(571)511-665768 [place] [address] 05-11-2024 13:05-0500 Body mass index (BMI) [Ratio] 37.01 kg/m2 Key [place] APRN.STEREOPTIC PROJECTION TOPOGRAPHER Work Phone: [facility] 05-11-2024 13:05-0500 Body weight 100.88 kg Key [place] APRN.STEREOPTIC PROJECTION TOPOGRAPHER Work Phone: [facility] 05-11-2024 13:05-0500 Diastolic blood pressure 58 mm[Hg] Key [place]illo HOUSE DIRECTOR.STEREOPTIC PROJECTION TOPOGRAPHER Work Phone: [facility] 05-11-2024 13:05-0500 Heart rate 60 /min Key [place]illo HOUSE DIRECTOR.STEREOPTIC PROJECTION TOPOGRAPHER Work Phone: [facility] 05-11-2024 13:05-0500 SaO2% (BldA) [Mass fraction] 95 % Key [place]illo HOUSE DIRECTOR.STEREOPTIC PROJECTION TOPOGRAPHER Work Phone: [facility] 05-11-2024 13:05-0500 Systolic blood pressure 130 mm[Hg] Key [place] HOUSE DIRECTOR.STEREOPTIC PROJECTION TOPOGRAPHER Work Phone: [facility] 05-02-2024 12:35-0500 Body temperature 97.9 [degF] Dr. Michael Puga DO Work Phone: 1(829)320-642668 [place] [address] 05-02-2024 12:35-0500 Diastolic blood pressure 56 mm[Hg] Dr. Michael Puga DO Work Phone: 0(374)542-316168 [place] [address] 05-02-2024 12:35-0500 Heart rate 60 /min Dr. Michael Puga DO Work Phone: 2(115)503-492668 [place] [address] 05-02-2024 12:35-0500 Respiratory rate 16 /min Dr. Michael Puga DO Work Phone: 6(535)850-246168 [place] [address] 05-02-2024 12:35-0500 SaO2% (BldA) [Mass fraction] 92 % Dr. Michael Puga DO Work Phone: 3(190)829-494068 [place] [address] 05-02-2024 12:35-0500 Systolic blood pressure 150 mm[Hg] Dr. Michael Puga DO Work Phone: 6(584)229-798768 [place] [address] 05-02-2024 12:11-0500 Body weight 101.[address] Michael Puga DO Work Phone: 4(063)990-660968 [place] [address] 05-02-2024 07:43-0500 Inhaled oxygen flow rate 2 L/min Dr. Michael Puga DO Work Phone: 7(269)847-655768 [place] [address] 05-02-2024 05:33-0500 Body mass index (BMI) [Ratio] 37.3 kg/m2 Dr. Michael Puga DO Work Phone: [facility] 05-02-2024 01:40-0500 Inhaled oxygen concentration 30 % Dr. Michael Puga DO Work Phone: [facility] 03-31-2024 11:40-0500 Diastolic blood pressure 78 mm[Hg] Raymundo De León MD Work Phone: [facility] 03-31-2024 11:40-0500 Heart rate 60 /min Raymundo De León MD Work Phone: [facility] 03-31-2024 11:40-0500 SaO2% (BldA) [Mass fraction] 95 % Raymundo De León MD Work Phone: [facility] 03-31-2024 11:40-0500 Systolic blood pressure 156 mm[Hg] Raymundo De León MD Work Phone: [facility] 03-31-2024 11:20-0500 Respiratory rate 18 /min Raymundo De León MD Work Phone: [facility] 03-31-2024 10:39-0500 Body height 165.1 cm Raymundo De León MD Work Phone: [facility] 03-31-2024 10:39-0500 Body mass index (BMI) [Ratio] 38.27 kg/m2 Raymundo De Lenó MD Work Phone: [facility] 03-31-2024 10:39-0500 Body temperature 98.1 [degF] Raymundo De León MD Work Phone: [facility] 03-31-2024 10:39-0500 Body weight 104.33 kg Raymundo De León MD Work Phone: [facility] 03-27-2024 14:15-0500 Body height 165.1 cm Pac 1 Work Phone: [facility] 03-27-2024 14:15-0500 Body mass index (BMI) [Ratio] 38.27 kg/m2 Pacc 1 Work Phone: [facility] 03-27-2024 14:15-0500 Body temperature 97.5 [degF] Pacc 1 Work Phone: [facility] 03-27-2024 14:15-0500 Body weight 104.33 kg Pacc 1 Work Phone: [facility] 03-27-2024 14:15-0500 Diastolic blood pressure 54 mm[Hg] Pacc 1 Work Phone: [facility] 03-27-2024 14:15-0500 Heart rate 60 /min Pacc 1 Work Phone: [facility] 03-27-2024 14:15-0500 Respiratory rate 16 /min Pacc 1 Work Phone: [facility] 03-27-2024 14:15-0500 SaO2% (BldA) [Mass fraction] 94 % Pacc 1 Work Phone: [facility] 03-27-2024 14:15-0500 Systolic blood pressure 122 mm[Hg] Pacc 1 Work Phone: [facility] 03-23-2024 12:00-0500 Diastolic blood pressure 69 mm[Hg] Sarah Merchant PT Work Phone: [facility] 03-23-2024 12:00-0500 Heart rate 66 /min Sarah Merchant PT Work Phone: [facility] 03-23-2024 12:00-0500 SaO2% (BldA) [Mass fraction] 95 % Sarah Merchant PT Work Phone: [facility] 03-23-2024 12:00-0500 Systolic blood pressure 170 mm[Hg] Sarah Merchant PT Work Phone: [facility] 03-13-2024 14:18-0500 Body height 165.1 cm Sharon Jarrett APRN.STEREOPTIC PROJECTION TOPOGRAPHER Work Phone: [facility] 03-13-2024 14:18-0500 Body mass index (BMI) [Ratio] 38.51 kg/m2 Sharon Jarrett APRN.STEREOPTIC PROJECTION TOPOGRAPHER Work Phone: [facility] 03-13-2024 14:18-0500 Body temperature 97.5 [degF] Sharon John HOUSE DIRECTOR.STEREOPTIC PROJECTION TOPOGRAPHER Work Phone: [facility] 03-13-2024 14:18-0500 Body weight 104.96 kg Sharon John HOUSE DIRECTOR.STEREOPTIC PROJECTION TOPOGRAPHER Work Phone: [facility] 03-13-2024 14:18-0500 Diastolic blood pressure 75 mm[Hg] Sharon John HOUSE DIRECTOR.STEREOPTIC PROJECTION TOPOGRAPHER Work Phone: [facility] 03-13-2024 14:18-0500 Heart rate 71 /min Sharon John HOUSE DIRECTOR.STEREOPTIC PROJECTION TOPOGRAPHER Work Phone: [facility] 03-13-2024 14:18-0500 SaO2% (BldA) [Mass fraction] 93 % Sharon John HOUSE DIRECTOR.STEREOPTIC PROJECTION TOPOGRAPHER Work Phone: [facility] 03-13-2024 14:18-0500 Systolic blood pressure 184 mm[Hg] Sharon John HOUSE DIRECTOR.STEREOPTIC PROJECTION TOPOGRAPHER Work Phone: [facility] 03-01-2024 17:08-0400 Body mass index (BMI) [Ratio] 38.12 kg/m2 Michael Puga DO Work Phone: [facility] 03-01-2024 17:08-0400 Body temperature 97.11 [degF] Michael Puga DO Work Phone: [facility] 03-01-2024 17:08-0400 Body weight 101.15 kg Michael Puga DO Work Phone: [facility] 03-01-2024 17:08-0400 Diastolic blood pressure 80 mm[Hg] Michael Puga DO Work Phone: [facility] 03-01-2024 17:08-0400 Heart rate 64 /min Michael Puga DO Work Phone: [facility] 03-01-2024 17:08-0400 Respiratory rate 20 /min Michael Puga DO Work Phone: [facility] 03-01-2024 17:08-0400 Systolic blood pressure 144 mm[Hg] Michael Puga DO Work Phone: [facility] 12-07-2023 16:00-0400 Diastolic blood pressure 68 mm[Hg] Wilfred Mcclellan STEAM DRIER TENDER Work Phone: [facility] 12-07-2023 16:00-0400 Systolic blood pressure 144 mm[Hg] Wilfred Mcclellan STEAM DRIER TENDER Work Phone: [facility] 12-01-2023 13:50-0400 Body mass index (BMI) [Ratio] 38.8 kg/m2 Michael Puga DO Work Phone: [facility] 12-01-2023 13:50-0400 Body temperature 98.01 [degF] Michael Puga DO Work Phone: [facility] 12-01-2023 13:50-0400 Body weight 102.97 kg Michael Puga DO Work Phone: [facility] 12-01-2023 13:50-0400 Diastolic blood pressure 76 mm[Hg] Michael Puga DO Work Phone: [facility] 12-01-2023 13:50-0400 Heart rate 64 /min Michael Puga DO Work Phone: [facility] 12-01-2023 13:50-0400 Respiratory rate 24 /min Michael Puga DO Work Phone: [facility] 12-01-2023 13:50-0400 Systolic blood pressure 146 mm[Hg] Michael Puga DO Work Phone: [facility] 10-14-2023 13:24-0400 Body mass index (BMI) [Ratio] 38.46 kg/m2 Key [place] APRN.STEREOPTIC PROJECTION TOPOGRAPHER Work Phone: [facility] 10-14-2023 13:24-0400 Body weight 102.06 kg Key [place] APRN.STEREOPTIC PROJECTION TOPOGRAPHER Work Phone: [facility] 10-14-2023 13:24-0400 Diastolic blood pressure 58 mm[Hg] Key Portillo HOUSE DIRECTOR.STEREOPTIC PROJECTION TOPOGRAPHER Work Phone: [facility] 10-14-2023 13:24-0400 Heart rate 68 /min Key Portillo HOUSE DIRECTOR.STEREOPTIC PROJECTION TOPOGRAPHER Work Phone: [facility] 10-14-2023 13:24-0400 Respiratory rate 16 /min Key Portillo HOUSE DIRECTOR.STEREOPTIC PROJECTION TOPOGRAPHER Work Phone: [facility] 10-14-2023 13:24-0400 Systolic blood pressure 142 mm[Hg] Key Portillo HOUSE DIRECTOR.STEREOPTIC PROJECTION TOPOGRAPHER Work Phone: [facility] 04-05-2023 11:22-0500 Body temperature 97.2 [degF] Michael Puga DO Work Phone: [facility] 04-05-2023 11:22-0500 Body weight 101.61 kg Michael Puga DO Work Phone: [facility] 04-05-2023 11:22-0500 Diastolic blood pressure 80 mm[Hg] Michael Puga DO Work Phone: [facility] 04-05-2023 11:22-0500 Heart rate 64 /min Michael Puga DO Work Phone: [facility] 04-05-2023 11:22-0500 Respiratory rate 16 /min Michael Puga DO Work Phone: [facility] 04-05-2023 11:22-0500 Systolic blood pressure 120 mm[Hg] Michael Puga DO Work Phone: [facility] 12-28-2022 14:00-0400 Body height 162.9 cm Pulm Wstr Work Phone: [facility] 12-28-2022 14:00-0400 Body weight 102.06 kg Pulm Wstr Work Phone: [facility] 12-28-2022 14:00-0400 Heart rate 66 /min Pulm Wstr Work Phone: [facility] 12-28-2022 14:00-0400 Respiratory rate 14 /min Pulm Wstr Work Phone: [facility] 12-28-2022 14:00-0400 SaO2% (BldA) [Mass fraction] 96 % Pulm Wstr Work Phone: [facility] 12-22-2022 15:24-0400 Body height 165.1 cm Michael Puga DO Work Phone: [facility] 12-22-2022 15:24-0400 Body weight 103.87 kg Michael Puga DO Work Phone: [facility] 12-22-2022 15:24-0400 Diastolic blood pressure 62 mm[Hg] Michael Puga DO Work Phone: [facility] 12-22-2022 15:24-0400 Heart rate 63 /min Michael Puga DO Work Phone: [facility] 12-22-2022 15:24-0400 Respiratory rate 18 /min Michael Puga DO Work Phone: [facility] 12-22-2022 15:24-0400 SaO2% (BldA) [Mass fraction] 96 % Michael Upga DO Work Phone: [facility] 12-22-2022 15:24-0400 Systolic blood pressure 130 mm[Hg] Michael Puga DO Work Phone: [facility] 06-22-2022 11:42-0500 Body temperature 98.2 [degF] Michael Puga DO Work Phone: [facility] 06-22-2022 11:42-0500 Body weight 102.51 kg Michael Puga DO Work Phone: [facility] 06-22-2022 11:42-0500 Diastolic blood pressure 68 mm[Hg] Michael Puga DO Work Phone: [facility] 06-22-2022 11:42-0500 Heart rate 64 /min Michael Puga DO Work Phone: [facility] 06-22-2022 11:42-0500 Respiratory rate 16 /min Michael Puga DO Work Phone: [facility] 06-22-2022 11:42-0500 Systolic blood pressure 128 mm[Hg] Michael Puga DO Work Phone: [facility] 06-04-2022 15:28-0500 Diastolic blood pressure 80 mm[Hg] Key Portillo HOUSE DIRECTOR.STEREOPTIC PROJECTION TOPOGRAPHER Work Phone: [facility] 06-04-2022 15:28-0500 Systolic blood pressure 164 mm[Hg] Key Portillo HOUSE DIRECTOR.STEREOPTIC PROJECTION TOPOGRAPHER Work Phone: [facility] 06-04-2022 14:34-0500 Body weight 106.69 kg Key Portillo HOUSE DIRECTOR.STEREOPTIC PROJECTION TOPOGRAPHER Work Phone: [facility] 06-04-2022 14:34-0500 Heart rate 63 /min Key Portillo HOUSE DIRECTOR.STEREOPTIC PROJECTION TOPOGRAPHER Work Phone: [facility] 06-04-2022 14:34-0500 Respiratory rate 16 /min Key Portillo HOUSE DIRECTOR.STEREOPTIC PROJECTION TOPOGRAPHER Work Phone: [facility] 06-04-2022 14:34-0500 SaO2% (BldA) [Mass fraction] 93 % Key Portillo HOUSE DIRECTOR.STEREOPTIC PROJECTION TOPOGRAPHER Work Phone: [facility] 04-21-2022 12:31-0500 Body temperature 96.8 [degF] Michael Puga DO Work Phone: [facility] 04-21-2022 12:31-0500 Body weight 105.23 kg Michael Puga DO Work Phone: [facility] 04-21-2022 12:31-0500 Diastolic blood pressure 74 mm[Hg] Michael Puga DO Work Phone: [facility] 04-21-2022 12:31-0500 Heart rate 60 /min Michael Puga DO Work Phone: [facility] 04-21-2022 12:31-0500 Respiratory rate 20 /min Michael Puga DO Work Phone: [facility] 04-21-2022 12:31-0500 Systolic blood pressure 124 mm[Hg] Michael Puga DO Work Phone: [facility] 02-16-2022 11:44-0400 Body temperature 97 [degF] Michael Puga DO Work Phone: [facility] 02-16-2022 11:44-0400 Body weight 105.69 kg Michael Puga DO Work Phone: [facility] 02-16-2022 11:44-0400 Diastolic blood pressure 70 mm[Hg] Michael Puga DO Work Phone: [facility] 02-16-2022 11:44-0400 Heart rate 68 /min Michael Upga DO Work Phone: [facility] 02-16-2022 11:44-0400 Respiratory rate 16 /min Michael Puga DO Work Phone: [facility] 02-16-2022 11:44-0400 Systolic blood pressure 146 mm[Hg] Michael Puga DO Work Phone: [facility] 01-16-2022 09:59-0400 Body temperature 97.59 [degF] Raymundo De León MD Work Phone: [facility] 01-16-2022 09:59-0400 Body weight 105.05 kg Raymundo De León MD Work Phone: [facility] 01-16-2022 09:59-0400 Heart rate 80 /min Raymundo De León MD Work Phone: [facility] 01-16-2022 09:59-0400 SaO2% (BldA) [Mass fraction] 96 % Raymundo De León MD Work Phone: [facility] 01-08-2022 14:45-0400 Diastolic blood pressure 72 mm[Hg] Raymundo De León MD Work Phone: [facility] 01-08-2022 14:45-0400 Heart rate 60 /min Raymundo De León MD Work Phone: [facility] 01-08-2022 14:45-0400 Respiratory rate 16 /min Raymundo De León MD Work Phone: [facility] 01-08-2022 14:45-0400 SaO2% (BldA) [Mass fraction] 92 % Raymundo De León MD Work Phone: [facility] 01-08-2022 14:45-0400 Systolic blood pressure 163 mm[Hg] Raymundo De León MD Work Phone: [facility] 01-08-2022 13:15-0400 Body temperature 97.81 [degF] Raymundo De León MD Work Phone: [facility] 12-18-2021 15:07-0400 Body height 165.1 cm Raymundo De León MD Work Phone: [facility] 12-18-2021 15:07-0400 Body temperature 98.71 [degF] Raymundo De León MD Work Phone: [facility] 12-18-2021 15:07-0400 Body weight 102.51 kg Raymundo De León MD Work Phone: [facility] 12-18-2021 15:07-0400 Diastolic blood pressure 70 mm[Hg] Raymundo De León MD Work Phone: [facility] 12-18-2021 15:07-0400 Heart rate 78 /min Raymundo De León MD Work Phone: [facility] 12-18-2021 15:07-0400 SaO2% (BldA) [Mass fraction] 98 % Raymundo De León MD Work Phone: [facility] 12-18-2021 15:07-0400 Systolic blood pressure 138 mm[Hg] Raymundo De León MD Work Phone: [facility] 10-20-2021 15:25-0400 Body temperature 98.91 [degF] Nunu Gonzalez PA-C Work Phone: [facility] 10-20-2021 15:25-0400 Body weight 101.33 kg Nunu Bogner PA-C Work Phone: [facility] 10-20-2021 15:25-0400 Diastolic blood pressure 80 mm[Hg] Nunu Bogner PA-C Work Phone: [facility] 10-20-2021 15:25-0400 Heart rate 61 /min Nunu Bogner PA-C Work Phone: [facility] 10-20-2021 15:25-0400 Respiratory rate 20 /min Nunu Bogner PA-C Work Phone: [facility] 10-20-2021 15:25-0400 SaO2% (BldA) [Mass fraction] 95 % Nunu Bogner PA-C Work Phone: [facility] 10-20-2021 15:25-0400 Systolic blood pressure 134 mm[Hg] Nunu Bogner PA-C Work Phone: [facility] 06-09-2021 09:35-0500 Body height 165.[address] Michael Puga Work Phone: [facility] Work Phone: 06-09-2021 09:35-0500 Body weight 100.[address] Michael Puga Work Phone: [facility] Work Phone: 06-06-2021 08:07-0500 Body mass index (BMI) [Ratio] 36.9 kg/m2 Dr. Michael Puga Work Phone: [facility] Work Phone: 06-02-2021 11:58-0500 Body mass index (BMI) [Ratio] 36.9 kg/m2 Dr. Michael Puga Work Phone: [facility] Work Phone: 06-02-2021 11:58-0500 Body weight 100.[address] Michael Puga Work Phone: [facility] Work Phone: 06-02-2021 11:58-0500 Diastolic blood pressure 79 mm[Hg] Dr. Michael Puga Work Phone: [facility] Work Phone: 06-02-2021 11:58-0500 Heart rate 70 /min Dr. Michael Puga Work Phone: [facility] Work Phone: 06-02-2021 11:58-0500 Respiratory rate 18 /min Dr. Michael Puga Work Phone: [facility] Work Phone: 06-02-2021 11:58-0500 SaO2% (BldA) [Mass fraction] 94 % Dr. Michael Puga Work Phone: [facility] Work Phone: 06-02-2021 11:58-0500 Systolic blood pressure 174 mm[Hg] Dr. Michael Puga Work Phone: [facility] Work Phone: 12-21-2020 19:10-0400 Diastolic blood pressure 94 mm[Hg] Michael Ghotraon Other Phone: [facility] 12-21-2020 19:10-0400 Heart rate 88 /min Michael Levyrison Other Phone: [facility] 12-21-2020 19:10-0400 Respiratory rate 18 /min Michael Levyrison Other Phone: [facility] 12-21-2020 19:10-0400 SaO2% (BldA) [Mass fraction] 95 % Michael Puga Other Phone: [facility] 12-21-2020 19:10-0400 Systolic blood pressure 144 mm[Hg] Michael Puga Other Phone: [facility] 12-21-2020 17:03-0400 Body height 165.1 cm Michael Levyrison Other Phone: [facility] 12-21-2020 17:03-0400 Body temperature 99.86 [degF] Michael Puga Other Phone: [facility] 12-21-2020 17:03-0400 Body weight 98 kg Michael Puga Other Phone: [facility] 10-22-2016 12:59-0400 BMI (Body Mass Index) 37.27 kg/m2 [facility] Work Phone: 10-22-2016 12:59-0400 BP Diastolic 70 mm[Hg] [facility] Work Phone: 10-22-2016 12:59-0400 BP Systolic 140 mm[Hg] [facility] Work Phone: 10-22-2016 12:59-0400 Height 165.1 cm [facility] Work Phone: 10-22-2016 12:59-0400 Pulse (Heart Rate) 68 /min [facility] Work Phone: 10-22-2016 12:59-0400 Respiratory Rate 20 /min [facility] Work Phone: 10-22-2016 12:59-0400 Weight 101.61 kg [facility] Work Phone: 04-15-2016 13:20-0500 BMI (Body Mass Index) 39.14 kg/m2 Delisa [facility] Work Phone: 04-15-2016 13:20-0500 BP Diastolic 62 mm[Hg] Delisa Juárez RN [facility] Work Phone: 04-15-2016 13:20-0500 BP Systolic 130 mm[Hg] Delisa Juárez RN [facility] Work Phone: 04-15-2016 13:20-0500 BSA (Body Surface Area) 2.12 m2 Delisa Juárez RN [facility] Work Phone: 04-15-2016 13:20-0500 Pulse (Heart Rate) 60 /min Delisa Juárez RN [facility] Work Phone: 04-15-2016 13:20-0500 Respiratory Rate 20 /min Delisa Marquita RN [facility] Work Phone: 04-15-2016 13:20-0500 Weight 106.69 kg Delisamarii Juárez RN [facility] Work Phone: 05-28-2015 13:30-0500 BP Diastolic 82 mm[Hg] Delisa Marquita RN [facility] Work Phone: 05-28-2015 13:30-0500 BP Systolic 177 mm[Hg] Delisa Marquita RN [facility] Work Phone: 11-22-2014 13:42-0400 Heart rate 60 /min Delisa Marquita RN [facility] Work Phone: 05-05-2011 16:04-0500 Heart rate 420 ms Delisamarii Juárez RN [facility] Work Phone: 04-07-2011 13:46-0500 Height 165.1 cm Delisa Marquita RN [facility] Work Phone: Encounters Encounter Date Encounter Type Care Provider Facility Start: 12-04-2024 ambulatory Anabel ALVA Facility:[facility] Start: 12-02-2024 Non-patient / Non-visit Dr. Waleska oscar MD -[facility] Work Phone: Start: 12-01-2024 Non-patient / Non-visit Dr. Waleska oscar MD -[facility] Work Phone: Start: 11-30-2024 Non-patient / Non-visit Dr. Alyson Vicente MD -[facility] Work Phone: Start: 11-30-2024 ambulatory Gallo iHckey Facility:[facility] Start: 11-30-2024 Non-patient / Non-visit Dr. Beltran SZYMANSKI -[facility] Start: 11-29-2024 ambulatory Jonny Vicente Fac ility:[facility] Start: 11-29-2024 End: 12-03-2024 Evaluation and management of inpatient Dr. Tacho Davis DO -Progressive Care Unit Work Phone: Start: 11-29-2024 End: 12-03-[address] Michael Puga DO Work Phone: -Progressive Care Unit Start: 11-27-2024 End: 11-27-2024 Refill Michael Puga DO Work Phone: [facility] Comment on above: Refill Request Start: 11-11-2024 End: 11-13-2024 Refill Key Portillo HOUSE DIRECTOR.STEREOPTIC PROJECTION TOPOGRAPHER Work Phone: [facility] Comment on above: Refill Request Start: 11-10-2024 End: 11-13-2024 Telephone encounter Michael Puga DO Work Phone: [facility] Comment on above: Patient Update Start: 11-02-2024 End: 11-02-2024 Patient encounter procedure Anabel ALVA -[facility] Work Phone: Start: 11-02-2024 End: 11-02-[address] Michael Puga DO Work Phone: -[facility] Start: 11-01-2024 End: 11-01-2024 Telephone encounter Key Portillo HOUSE DIRECTOR.STEREOPTIC PROJECTION TOPOGRAPHER Work Phone: [facility] Start: 10-31-2024 End: 10-31-[address] Michael Puga DO Work Phone: -Radiology [facility] Start: 10-31-2024 End: 10-31-2024 Patient encounter procedure Anabel ALVA -Radiology [facility] Work Phone: Start: 10-31-2024 End: 10-31-2024 ambulatory Anabel ALVA Facility:[facility] Start: 10-27-2024 End: 10-27-2024 ambulatory Sarah Merchant PT Work Phone: [facility] Comment on above: Abnormality of gait (Primary Dx); Weakness; Difficulty walking; Imbalance Start: 10-27-2024 End: 10-27-[address] Michael Puga DO Work Phone: -[facility] Start: 10-27-2024 End: 10-27-[address] [facility] Work Phone: Start: 10-25-2024 End: 10-26-2024 Telephone encounter Michael Puga DO Work Phone: [facility] Comment on above: Medication Question Start: 10-23-2024 End: 10-23-[address] Michael Puga DO Work Phone: -[facility] Start: 10-23-2024 End: 10-23-[address] [facility] Work Phone: Start: 10-16-2024 End: 10-16-[address] Michael Puga DO Work Phone: -[facility] Start: 10-16-2024 End: 10-16-[address] [facility] Work Phone: Start: 10-09-2024 End: 10-09-2024 ambulatory Joy Sun [facility] Comment on above: Abnormality of gait (Primary Dx); Weakness; Difficulty walking; Imbalance Start: 10-02-2024 End: 10-02-2024 ambulatory jP Bledsoe PT Work Phone: [facility] Comment on above: Abnormality of gait (Primary Dx); Weakness; Difficulty walking; Imbalance Start: 09-28-2024 End: 09-28-2024 Telephone encounter Key Portillo APRN.STEREOPTIC PROJECTION TOPOGRAPHER Work Phone: [facility] Comment on above: report tremor is wor se Start: 09-28-2024 End: 09-28-2024 ambulatory Sarah Antamanda PT Work Phone: [facility] Comment on above: Weakness (Primary Dx ); Difficulty walking; Abnormality of gait; Imbalance Start: 09-11-2024 End: 09-11-2024 Refill Michael Puga DO Work Phone: [facility] Comment on above: Refill Request Start: 09-08-2024 End: 09-11-2024 Telephone encounter Michael Puga DO Work Phone: [facility] Comment on above: Problem with order Start: 09-05-2024 End: 09-08-2024 Telephone encounter Michael Puga DO Work Phone: [facility] Comment on above: Patient Question Start: 08-30-2024 End: 08-30-2024 Patient encounter procedure Michael Puga DO Work Phone: [facility] Comment on above: Hypoglycemia (Primar y Dx); Restless leg; Dysthymia; Congestive heart failure, unspecified HF chronicity, unspecified heart failure type (HCC); Obstructive lung disease (HCC); Arthritis, multiple joint involvement; Gait abnormality; Chronic respiratory failure with hypoxia (HCC) Start: 08-30-2024 End: 08-30-2024 ambulatory MICHAEL PUGA Facility:[facility] Start: 08-17-2024 End: 08-17-2024 Office outpatient visit 25 minutes Asia Rosales APRN.STEREOPTIC PROJECTION TOPOGRAPHER Work Phone: [facility] Comment on above: Anxiety (Primary Dx) ; Dysthymia; Congestive heart failure, unspecified HF chronicity, unspecified heart failure type (HCC); Function kidney decreased; Obstructive lung disease (HCC); Pulmonary hypertension (HCC) Start: 08-17-2024 End: 08-17-2024 ambulatory ASIA ROSALES Facility:[facility] Start: 08-16-2024 End: 08-18-2024 Telephone encounter Michael Pgua DO Work Phone: [facility] Comment on above: Patient Update Start: 07-28-2024 End: 07-28-2024 ambulatory Gallo Hickey Facility:[facility] Start: 07-28-2024 End: 07-28-[address] Gallo Hickey MD -[facility] Work Phone: Start: 07-07-2024 End: 07-07-2024 Patient encounter procedure Anabel ALVA -Laboratory, [facility] Work Phone: Start: 07-07-2024 End: 07-07-2024 ambulatory Michael Puga DO Work Phone: [facility] Comment on above: Medication Question Start: 07-07-2024 End: 07-07-2024 ambulatory Anabel ALVA Facility:[facility] Start: 07-03-2024 Non-patient / Non-visit Dr. Virgil ordaz MD -[facility] Start: 07-03-2024 End: 07-03-[address] Michael Puga DO Work Phone: [facility] Work Phone: Start: 07-03-2024 End: 07-03-2024 Patient encounter procedure Anabel ALVA -Cardiovascular Services Work Phone: Start: 07-03-2024 End: 07-03-2024 ambulatory Anabel ALVA Facility:[facility] Start: 06-26-2024 End: 07-14-2024 Telephone encounter Michael Puga DO Work Phone: [facility] Comment on above: Patient Update Start: 06-22-2024 End: 06-22-2024 Patient encounter procedure Anabel ALVA -Pulmonary Services/Neurology Work Phone: Start: 06-22-2024 ambulatory Anabel ALVA Facility:[facility] Start: 06-21-2024 End: 06-21-2024 Patient encounter procedure Michael Puga DO Work Phone: [facility] Comment on above: Obstructive lung dis ease (HCC) (Primary Dx); Thyroid disease; Pulmonary hypertension (HCC); WELCH (dyspnea on exertion); Function kidney decreased; Situational mixed anxiety and depressive disorder; Arthritis, multiple joint involvement Start: 06-21-2024 End: 06-22-2024 ambulatory MICHAEL PUGA Facility:[facility] Start: 06-16-[address] Faby Puga DO -[facility] Work Phone: Start: 06-16-2024 ambulatory [facility] Facility:[facility] Start: 06-06-2024 End: 06-06-2024 Telephone encounter Michael Puga DO Work Phone: [facility] Comment on above: Results, Lab Start: 06-03-2024 ambulatory Michael Puga Facilit y:[facility] Start: 06-02-2024 End: 06-02-2024 ambulatory Michael Puga Facility:[facility] Start: 06-02-2024 End: 06-02-[address] Michael Puga DO -Home Health Lab Start: 06-01-2024 End: 06-01-2024 ambulatory Gallodeangelo Hickey Facility:[facility] Start: 06-01-2024 End: 06-01-[address] Gallo Hickey MD -[facility] Work Phone: Start: 05-30-2024 End: 05-31-2024 Telephone encounter Michael Puga DO Work Phone: [facility] Comment on above: Results Start: 05-25-2024 End: 05-25-2024 Telephone encounter Michael Puga DO Work Phone: [facility] Comment on above: Patient Update; Medi cation Question Start: 05-25-2024 End: 05-25-[address] Michael Puga DO -Laboratory, Specimen Work Phone: Start: 05-25-2024 End: 05-25-2024 ambulatory Michael Puga Facility:[facility] Start: 05-22-2024 ambulatory Key Leos cility:[facility] Start: 05-19-2024 End: 05-19-2024 Telephone encounter Michael Puga DO Work Phone: [facility] Comment on above: Results Start: 05-16-2024 End: 05-18-2024 Telephone encounter Michael Puga DO Work Phone: [facility] Comment on above: Medication Update; O rders Start: 05-12-2024 End: 05-12-2024 Telephone encounter Keyjayy Portillo HOUSE DIRECTOR.STEREOPTIC PROJECTION TOPOGRAPHER Work Phone: [facility] Comment on above: Patient Question Results Start: 05-11-2024 End: 05-11-2024 Patient encounter procedure Key Lety Portillo HOUSE DIRECTOR.STEREOPTIC PROJECTION TOPOGRAPHER Work Phone: [facility] Comment on above: Hospital discharge f ollow-up (Primary Dx); Congestive heart failure, unspecified HF chronicity, unspecified heart failure type (HCC); Thyroid disease; Restless leg Start: 05-11-2024 End: 05-11-2024 ambulatory KEY PORTILLO Facility:[facility] Start: 05-08-2024 End: 05-08-2024 Telephone encounter Michael Puga DO Work Phone: [facility] Comment on above: Patient Update Start: 05-05-2024 End: 05-05-2024 Telephone encounter Michael Puga DO Work Phone: [facility] Comment on above: Home Health Point of Care Results Start: 05-04-2024 End: 05-05-2024 Patient Outreach Michael Puga DO Work Phone: [facility] Comment on above: Transition Of Long Term Health Plan of Care Refill Request Start: 05-02-2024 Non-patient / Non-visit Dr. Alyson Vicente MD -[facility] Work Phone: Start: 05-01-2024 End: 05-01-2024 Telephone encounter Michael Puga DO Work Phone: [facility] Comment on above: verbal orders Start: 05-01-2024 Non-patient / Non-visit Dr. Alyson [facility] Work Phone: Start: 04-30-2024 End: 04-30-2024 ambulatory Gallo Hickey Facility:[facility] Start: 04-30-2024 End: 04-30-2024 Non-patient / Non-visit Dr. Gallo Hickey MD -[facility] Work Phone: Start: 04-30-2024 ambulatory Susan Duran Facility :[facility] Start: 04-30-2024 End: 05-02-2024 Evaluation and management of inpatient Dr. Jonny Vicente MD -Intensive Care Unit Work Phone: Start: 2024 End: 2024 ambulatory Gallo Hickey Facility:[facility] Start: 2024 End: [address] Gallo Hickey MD -[facility] Work Phone: Start: 04-24-2024 End: 04-24-2024 Telephone encounter Michael Puga DO Work Phone: [facility] Comment on above: Leg Pain Start: 04-20-2024 End: 04-20-2024 ambulatory Sarah Merchant PT Work Phone: [facility] Comment on above: Difficulty walking ( Primary Dx); Weakness; Imbalance Start: 04-18-2024 End: 04-18-2024 ambulatory Sarah Merchant PT Work Phone: [facility] Comment on above: Difficulty walking ( Primary Dx); Imbalance; Weakness Start: 04-10-2024 End: 04-10-2024 ambulatory SHARON JARRETT Facility:[facility] Start: 04-10-2024 End: 04-10-2024 Patient encounter procedure Sharon Jarrett HOUSE DIRECTOR.STEREOPTIC PROJECTION TOPOGRAPHER Work Phone: General Surgery Comment on above: Other gastritis with out bleeding (Primary Dx) Start: 03-31-2024 ambulatory SHARON JOHN Facilit :[facility] Start: 03-31-2024 End: 03-31-2024 Subsequent hospital visit by physician Raymundo De León MD Work Phone: [facility] Endoscopy Comment on above: Epigastric abdominal pain [R10.13] Start: 03-27-2024 End: 03-27-2024 PAT [facility] [place] Work Phone: Pre Anesthesia Comment on above: Pre-operative examin ation (Primary Dx); JOSE on CPAP; Obstructive lung disease (HCC); Primary hypertension; Hyperlipidemia, unspecified hyperlipidemia type; Cardiac resynchronization therapy pacemaker ([employer]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-P) in 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; Paroxysmal atrial fibrillation (HCC); Pulmonary [...] Start: 03-27-2024 End: 03-27-2024 Preprocedural examination done [facility] Work Phone: [facility] Start: 03-23-2024 End: 03-23-2024 ambulatory Sarah Merchant PT Work Phone: [facility] Comment on above: Difficulty walking ( Primary Dx); Imbalance; Weakness Start: 03-20-2024 End: 03-20-2024 ambulatory Sarah Merchant PT Work Phone: [facility] Comment on above: Difficulty walking ( Primary Dx); Imbalance; Weakness Start: 03-16-2024 End: 03-16-2024 ambulatory Sarah Merchant PT Work Phone: [facility] Comment on above: Difficulty walking ( Primary Dx); Imbalance; Weakness Start: 03-14-2024 End: 03-14-2024 ambulatory Joy Sun PTA [facility] Comment on above: Difficulty walking ( Primary Dx); Imbalance; Weakness Start: 03-13-2024 End: 03-13-2024 ambulatory SHARON JARRETT Facility:[facility] Start: 03-13-2024 End: 03-13-2024 Patient encounter procedure Sharon Jarrett STEREOPTIC PROJECTION TOPOGRAPHER Work Phone: General Surgery Comment on above: Epigastric abdominal pain (Primary Dx); Pulmonary hypertension (HCC) Start: 03-13-2024 End: 04-03-2024 Telephone encounter Raymundo De León MD Work Phone: General Surgery Comment on above: 03-31-2024 EGD medin a Start: 03-08-2024 End: 03-09-2024 Telephone encounter Michael Puga DO Work Phone: [facility] [place] Comment on above: Wheelchair order Start: 03-02-2024 End: 03-02-2024 ambulatory Sarah Merchant PT Work Phone: [facility] Comment on above: Difficulty walking ( Primary Dx); Imbalance; Weakness Start: 03-01-2024 End: 03-01-2024 Patient encounter procedure Michael Puga DO Work Phone: [facility] [place] Comment on above: Arthritis, multiple joint involvement (Primary Dx); Anxiety; Need for influenza vaccination; Epigastric abdominal pain; Obstructive lung disease (HCC); Gait abnormality; Imbalance Start: 03-01-2024 End: 03-01-2024 ambulatory MICHAEL PUGA Facility:[facility] Start: 03-01-2024 End: 03-02-2024 Telephone encounter Michael Puga DO Work Phone: [facility] [place] Comment on above: Orders Start: 02-17-2024 End: 02-18-2024 ambulatory Sarah Merchant PT Work Phone: [facility] Comment on above: Difficulty walking ( Primary Dx); Imbalance; Weakness Start: 02-14-2024 End: 02-14-2024 ambulatory Wilfred Mcclellan STEAM DRIER TENDER Work Phone: [facility] Comment on above: Weakness (Primary Dx ); Imbalance Start: 02-10-2024 End: 02-10-2024 ambulatory Sarah Merchant PT Work Phone: [facility] Comment on above: Weakness (Primary Dx ); Imbalance; Difficulty walking Start: 02-07-2024 ambulatory Michael Puga Facilit y:[facility] Start: 02-07-2024 End: 02-07-2024 ambulatory Sarah Merchant PT Work Phone: [facility] Comment on above: Weakness (Primary Dx ); Imbalance; Difficulty walking Start: 02-02-2024 ambulatory [facility] Facility:[facility] Start: 02-02-2024 End: 02-02-2024 ambulatory Anabel Horne PA Facility:[facility] Start: 01-31-2024 End: 01-31-2024 ambulatory Sarah Merchant PT Work Phone: [facility] Comment on above: Weakness (Primary Dx ); Imbalance; Difficulty walking Start: 01-28-2024 End: 01-28-2024 [facility] Start: 01-26-2024 End: 01-26-2024 ambulatory Wilfred Mcclellan STEAM DRIER TENDER Work Phone: [facility] Comment on above: Weakness (Primary Dx ); Imbalance Start: 01-25-2024 End: 01-25-2024 ambulatory Anabel Horne PA Facility:[facility] Start: 01-25-2024 End: 01-25-2024 ambulatory Anabel Horne PA Facility:[facility] Start: 01-18-2024 End: 01-18-2024 ambulatory Sarah Merchant PT Work Phone: [facility] Comment on above: Weakness (Primary Dx ); Imbalance; Difficulty walking Start: 01-10-2024 End: 01-11-2024 Telephone encounter Michael Puga DO Work Phone: [facility] Comment on above: Wheelchair order Start: 12-13-2023 End: 12-14-2023 ambulatory Sarah Merchant PT Work Phone: [facility] Comment on above: Weakness (Primary Dx ); Difficulty walking; Imbalance Start: 12-08-2023 End: 12-08-2023 ambulatory MICHAEL PUGA Facility:[facility] Start: 12-07-2023 End: 12-07-2023 ambulatory Wilfred Mcclellan STEAM DRIER TENDER Work Phone: [facility] Comment on above: Weakness (Primary Dx ) Start: 12-01-2023 End: 12-01-2023 ambulatory MICHAEL PUGA Facility:[facility] Start: 12-01-2023 End: 12-01-2023 Patient encounter procedure Michael Puga DO Work Phone: [facility] [place] Comment on above: Acute bronchitis, un specified organism (Primary Dx); Thyroid disease; Rhonchi; Obstructive lung disease (HCC); Paroxysmal atrial fibrillation (HCC); Disorder of carotid artery (HCC); Malignant melanoma of skin of trunk, except scrotum (HCC) Start: 11-26-2023 Telephone encounter Asia Persaud APRN.STEREOPTIC PROJECTION TOPOGRAPHER Work Phone: [facility] [place] Comment on above: Results Start: 11-25-2023 End: 11-25-2023 ambulatory Sarah Merchant PT Work Phone: [facility] Comment on above: Weakness (Primary Dx ); Difficulty walking; Imbalance Start: 11-23-2023 End: 11-23-2023 ambulatory Sarah Merchant PT Work Phone: [facility] Comment on above: Weakness (Primary Dx ); Difficulty walking; Imbalance Start: 11-15-2023 End: 11-16-2023 ambulatory Sarah Merchant PT Work Phone: [facility] Comment on above: Weakness (Primary Dx ); Difficulty walking; Imbalance Start: 10-18-2023 Refill Michael [facility]choa DO [facility] Comment on above: Refill Request Orders; Medication Q uestion Start: 10-14-2023 End: 10-14-2023 Patient encounter procedure Key Portillo APRN.STEREOPTIC PROJECTION TOPOGRAPHER Work Phone: [facility] [place] Comment on above: Hospital discharge f ollow-up (Primary Dx); Anxiety; TIA (transient ischemic attack); Hyperlipidemia, unspecified hyperlipidemia type; Sleep disturbances; Community acquired pneumonia, unspecified laterality; On supplemental oxygen therapy; Subclinical hypothyroidism; IFG (impaired fasting glucose); Primary hypertension Start: 10-11-2023 ambulatory Isabella burris RN Work Phone: [employer] Start: 10-11-2023 Telephone follow-up Isabella Michel RN Work Phone: [employer] Comment on above: Transition Of Care ( TCM OON follow up ) Weekly phone contact (Recurring) for Transitional Care Management Start: 10-06-2023 Telephone encounter Michael car DO Work Phone: [facility] [place] Start: 10-04-2023 Patient Outreach Isabella Michel RN Work Phone: [employer] Comment on above: Transition Of Care ( TCM / [place] DC 10/01/OON ) Initial phone contact for Transitional Care Management HH: orders, update, medications Start: 10-01-2023 Telephone encounter Michael car DO Work Phone: [facility] [place] Start: 04-05-2023 End: 04-05-2023 Patient encounter procedure Michael Puga DO Work Phone: [facility] [place] Comment on above: Subclinical hypothyr [...] scrotum (HCC) Start: 03-31-2023 Telephone encounter Michael car DO Work Phone: [facility] [place] Comment on above: Patient Question Start: 01-11-2023 Telephone encounter Michael car DO Work Phone: [facility] [place] Comment on above: Orders Start: 12-30-2022 Telephone encounter Michael car DO Work Phone: [facility] [place] Comment on above: Results Start: 12-28-2022 End: 12-28-2022 Subsequent hospital visit by physician Mile [facility] [place] Work Phone: Radiology Comment on above: WELCH (dyspnea on exer tion) [R06.09] Start: 12-28-2022 End: 12-28-2022 ambulatory [facility] Work Phone: [facility] Comment on above: Spirometry Start: 12-28-2022 End: 12-28-2022 Patient encounter procedure [facility] Work Phone: [facility] Start: 12-22-2022 End: 12-22-2022 Patient encounter procedure Michael Puga DO Work Phone: [facility] [place] Comment on above: WELCH (dyspnea on exer tion) (Primary Dx); Fatigue, unspecified type; Obesity, Class II, BMI 35-39.9; IFG (impaired fasting glucose); Vitamin B12 deficiency; Primary hypertension; Disorder of carotid artery (HCC) Start: 09-29-2022 Refill Michael ochoa DO Work Phone: [facility] [place] Comment on above: Refill Request Start: 06-29-2022 Refill Michael ochoa DO Work Phone: [facility] [place] Comment on above: Refill Request Start: 06-22-2022 End: 06-22-2022 Patient encounter procedure Michael Puga DO Work Phone: [facility] [place] Comment on above: Iron deficiency (Lisa radha Dx); Fatigue, unspecified type; SOB (shortness of breath) on exertion; IFG (impaired fasting glucose); Vitamin D deficiency; Vitamin B12 deficiency; Hyperlipidemia, unspecified hyperlipidemia type; Primary hypertension; Obesity, Class II, BMI 35-39.9; Arthritis, multiple joint involvement Start: 06-10-2022 Telephone encounter Key Palmer son HOUSE DIRECTOR.STEREOPTIC PROJECTION TOPOGRAPHER Work Phone: [facility] [place] Comment on above: Results Start: 06-08-2022 Telephone encounter Key ochoa HOUSE DIRECTOR.STEREOPTIC PROJECTION TOPOGRAPHER Work Phone: [facility] [place] Comment on above: Results Start: 06-05-2022 Telephone encounter Michael car DO Work Phone: [facility] [place] Comment on above: Medication Problem Start: 06-04-2022 End: 06-04-2022 Patient encounter procedure Key Portillo RONNIE Work Phone: [facility] [place] Comment on above: Fatigue, unspecified type (Primary Dx); SOB (shortness of breath) on exertion; Hyperlipidemia, unspecified hyperlipidemia type; Obesity, Class II, BMI 35-39.9; IFG (impaired fasting glucose); Iron deficiency anemia, unspecified iron deficiency anemia type; Vitamin D deficiency; Bilateral leg edema; Primary hypertension Start: 06-02-[address] [facility] Phyllis Box MA [facility] [address] [employer] Comment on above: Population Health Na vigation Outreach ([facility]y at Home - [facility] ) Extreme fatigue Start: 04-27-2022 Telephone encounter Michael car DO Work Phone: [facility] [place] Comment on above: Patient Question Start: 04-21-2022 End: 04-21-2022 Patient encounter procedure Michael Puga DO Work Phone[facility] Comment on above: Dysthymia (Primary D x); Situational insomnia; Arthritis, multiple joint involvement; IFG (impaired fasting glucose); Obesity, Class II, BMI 35-39.9; Fatigue, unspecified type; Iron deficiency Start: 02-16-2022 End: 02-16-2022 Patient encounter procedure Michael Puga DO Work Phone: [facility] [place] Comment on above: Dysthymia (Primary [...] hemorrhage [K21.00] Start: 12-31-2021 Telephone encounter Joshua Aragon (Coord) aney General Surgery Comment on above: Pacemaker Check [...] encounter procedure Dr. Michael Puga Work Phone: [facility]-Laboratory Start: 08-06-2021 Refill July Dias Work Phone: General Surgery Comment on above: Refill Request Start: 06-19-2021 Telephone encounter Asia Persaud APRN.CNP Work Phone: [facility] Comment on above: Results Start: 06-16-2021 End: 06-16-[address] Michael Puga Work Phone: [facility] Start: 06-09-2021 End: 06-09-2021 Admission to same day surgery center Dr. Michael Puga Work Phone: [facility]-Practice Manager/Special Procedures Start: 06-02-2021 End: 06-02-[address] Michael Puga Work Phone: [facility]-Radiology, [facility] Start: 06-02-2021 End: 06-02-[address] Michael Puga Work Phone: [facility] Start: 12-21-2020 End: 12-21-2020 Emergency department patient visit Kat Gleason [facility] Procedures Date Procedure Procedure Detail Performing Clinician Start: 12-03-[address] Faby Puga DO Work Phone: Start: 11-30-2024 CT of head without contrast Dr. Michael car DO Work Phone: Start: 11-30-2024 Methadone measurement, urine Dr. Michael Puga DO Work Phone: Start: 11-30-2024 Serum inorganic phosphate measurement Dr. Michael Puga DO Work Phone: Start: 11-29-[address] Faby Puga DO Work Phone: Start: 11-29-2024 Urnls dip stick/tablet reagent auto microscopy Dr. Michael Puga DO Work Phone: Start: 11-29-2024 CT of head without contrast Dr. Michael car DO Work Phone: Start: 10-31-2024 X-ray of chest, PA and [...] Start: 03-31-2024 Esophagogastroduodenoscopy transoral diagnostic Sharon Jarrett APRN.STEREOPTIC PROJECTION TOPOGRAPHER Work Phone: Start: 04-05-2023 [employer] COVID-19 VACCINE (2022- SEASON) AGE 12+ YR [...] stick/tablet rgnt auto w/o microscopy Holly Clay HOUSE DIRECTOR.STEREOPTIC PROJECTION TOPOGRAPHER Work Phone: Start: 06-02-2021 Plain chest X-ray Dr. Michael Puga Work Phone: Start: 12-21-2020 End: 12-21-2020 EKG impression Bernie Barajas Start: 12-03-2016 End: 12-03-2016 Pm device progr eval, dual Gallo Hickey MD Start: 10-22-2016 End: 10-22-2016 Follow Up Appt 6 months Loli Knapp Start: 10-22-2016 End: 10-22-2016 MMM Gallo Hickey MD Start: 06-03-2016 End: 06-03-2016 Pm device progr eval, dual Gallo Hickey MD Start: 04-15-2016 End: 04-15-2016 Dietary management education, guidance, and counseling Delisa Juárez RN Start: 04-15-2016 End: 04-15-2016 AREA OPERATIONS MANAGER Anabel Horne PA-C Work Phone: Start: 04-15-2016 [...] months Loli Knapp Start: 05-28-2015 End: 05-28-2015 MM Gallo Hickey MD Start: 05-28-2015 End: 08-16-2015 Pacer Clinic Gallo Hickey MD Start: 05-28-2015 End: 05-29-2015 Pm device progr pito, dual Gallo Hickey MD Start: 11-22-2014 End: 11-22-2014 AREA OPERATIONS MANAGER Anabel Horne PA-C Work Phone: Start: 11-22-2014 [...] Start: 07-25-2014 End: 07-25-2014 Pm device progr eval, dual Gallo Hickey MD Start: 05-25-2014 End: 05-26-2014 Documentation of current medications Gallo Hickey MD Start: 05-25-2014 End: 11-07-2014 Follow Up Appt 6 months Loli Knapp Start: 05-25-2014 End: 05-25-2014 MMM Gallo Hickey MD Start: 05-25-2014 End: 11-07-2014 Pacer Clinic Gallo Hickey MD Start: 05-25-2014 End: 05-25-2014 Pm device progr eval, dual Gallo Hickey MD Start: 01-26-2014 End: 11-07-2014 Follow Up Appt 6 months Loli Knapp Start: 01-26-2014 End: 11-07-2014 Pacer Clinic Gallo Hickey MD Start: 01-26-2014 End: 01-26-2014 Pm device progr wayneal, dual Gallo Hickey MD Start: 11-22-2013 End: 11-22-2013 AREA OPERATIONS MANAGER Anabel Horne PA-C Work Phone: Start: 11-22-2013 End: 11-22-2013 Follow Up Appt 6 months Anabel Horne PA-C Work Phone: Start: 10-25-2013 End: 11-22-2013 Follow Up Appt 3 months Loli Knapp Start: 10-25-2013 End: 11-22-2013 Pacer Clinic Gallo Hickey MD Start: 10-25-2013 End: 11-22-2013 Pm device progr eval, dual Gallo Hickey MD Start: 08-16-2013 End: [...] PA-C Work Phone: Start: 07-19-2013 End: 07-19-2013 MMM Anabel Horne PA-C Work Phone: Start: 07-18-2013 End: 07-19-2013 Follow Up Appt 3 months Loli Knapp Start: 07-18-2013 End: 07-19-2013 Pacer Clinic Gallo Hickey MD Start: 07-18-2013 End: 07-19-2013 Pm device progr eval, dual Gallo Hickey MD Start: 05-24-2013 End: 05-26-2013 *BMP Anabel Horne PA-C Work Phone: Start: 05-24-2013 End: 05-24-2013 AREA OPERATIONS MANAGER Anabel Horne PA-C Work Phone: Start: 05-24-2013 [...] 05-18-2012 End: 05-16-2013 Thyroid stimulating hormone (TSH) [place] S Edelmira, MD Start: 05-18-2012 End: 05-16-2013 Thyroxine (T4) [...] DTaP,Tdap,Td Vaccine (3 - Td or Tdap) [facility] Start: 08-31-2027 Diabetes Screening Diabetes Screening [facility] Start: 05-11-2027 Diabetes Screening Diabetes Screening [facility] Start: 11-24-2026 Diabetes Screening Diabetes Screening [facility] Start: 03-31-2026 Diabetes Screening Diabetes Screening [facility] Start: 12-15-2025 DIABETES SCREEN DIABETES SCREEN [facility] Start: 12-15-2025 Diabetes Screening Diabetes Screening [facility] Start: 09-17-2025 DIABETES SCREEN DIABETES SCREEN [facility] Start: 06-04-2025 DIABETES SCREEN DIABETES SCREEN [facility] Start: 02-13-2025 DIABETES SCREEN DIABETES SCREEN [facility] Start: 01-01-2025 Influenza vaccination Influ[facility] Start: 12-08-2024 End: 12-08-2024 Patient encounter procedure 12/08/2024 2:40 PM EDT Office Visit [facility] [place] [address] [facility] [place] [address] Michael Puga DO [address] [facility] [place] [address] 3 month follow up [facility] [place] Comment on above: 3 month follow up Start: 12-03-2024 Patient discharge [facility] Start: 12-01-2024 Physiotherapy of chest [facility] Start: 11-30-2024 Inhalation therapy procedure [facility] Start: 11-29-2024 Application of intermittent pneumatic compression device [facility] Start: 11-29-2024 Following clinical pathway protocol [facility] Start: 11-29-2024 Assessment of risk of venous thromboembolism [facility] Start: 11-29-2024 Catheterization of vein [facility] Start: 11-29-2024 Insertion of catheter into peripheral vein [facility] Start: 11-29-2024 Measuring intake and output [facility] Start: 11-29-2024 Oxygen therapy [facility] Start: 11-29-2024 Providing care according to standard [facility] Start: 11-29-2024 Provision of activity privileges [facility] Start: 11-29-2024 Referral to occupational therapist [facility] Start: 11-29-2024 Referral to service [facility] Start: 11-29-2024 [facility] Start: 11-29-2024 MRI of brain without contrast Brain without Contrast [facility] Start: 11-29-2024 Verification routine [facility] Start: 11-29-2024 Admission procedure [facility] Start: 11-29-2024 Hospital admission, emergency, from emergency room, medical nature [facility] Start: 11-29-2024 Thyroid stimulating hormone measurement [facility] Start: 11-29-2024 Patient referral to dietitian [facility] Start: 10-27-2024 End: 10-27-2024 Patient encounter procedure 10/27/2024 12:45 PM EDT OT/PT/Speech Visit [facility] [address] [place] [address] Sarah Merchant, PT [address] [place], [place] [id number] CONSULT/WEAKNESS [facility] Comment on above: CONSULT/WEAKNESS Start: 10-18-2024 End: 10-18-2024 Patient encounter procedure 10/18/2024 1:30 PM EDT OT/PT/Speech Visit [facility] [address] [place] [address] Wilfred Mcclellan, STEAM DRIER TENDER [address] [place], [place] [phone] CONSULT/WEAKNESS [facility] Comment on above: CONSULT/WEAKNESS Start: 10-13-2024 Covid-19 Vaccine ( season) Covid-19 Vaccine ( season) [facility] Comment on above: Postponed from 08/05/2023 (Declined at t his time) Start: 10-13-2024 RSV Vaccine (1 - 1-dose 60+ series) RSV Vaccine (1 - 1-dose 60+ series) [facility] Comment on above: Postponed from 2001 (Declined at t his time) Start: 10-13-2024 RSV Vaccine (1 - 1-dose 75+ series) RSV Vaccine (1 - 1-dose 75+ series) [facility] Comment on above: Postponed from 2016 (Declined at t his time) Start: 10-09-2024 End: 10-09-2024 Patient encounter procedure 10/09/2024 12:45 PM EDT OT/PT/Speech Visit [facility] [address] [place] [address] Joy Sun, TOSHIA CONSULT/WEAKNESS [facility] Comment on above: CONSULT/WEAKNESS Start: 10-02-2024 End: 10-02-2024 Patient encounter procedure 10/02/2024 3:00 PM EDT OT/PT/Speech Visit [facility] [address] [place] [address] Pj Bledsoe, PT [address] [place] [address] CONSULT/WEAKNESS [facility] Comment on above: CONSULT/WEAKNESS Start: 09-28-2024 End: 09-28-2024 Patient encounter procedure 09/28/2024 2:15 PM EDT OT/PT/Speech Visit [facility] [address] [place] [address] Sarah Merchant, PT [address] [place] [address] CONSULT/WEAKNESS [facility] Comment on above: CONSULT/WEAKNESS Start: 08-30-2024 End: 08-30-2024 Patient encounter procedure 08/30/2024 3:00 PM EDT Office Visit [facility] [place] [address] [place] [address] Michael Puga, [address] [place] [address] 6 month follow up [facility] [place] Comment on above: 6 month follow up Start: 07-10-2024 End: 07-10-2024 Patient encounter procedure 07/10/2024 3:20 PM EDT Office Visit [facility] [place] [address] [place], [place] [phone] Key Portillo, HOUSE DIRECTOR.STEREOPTIC PROJECTION TOPOGRAPHER [address] [place], [place] [address] Requesting increase in Paxil [facility] [place] Comment on above: Requesting increase in Paxil Start: 06-21-2024 End: 06-21-2024 Patient encounter procedure 06/21/2024 5:20 PM EST Office Visit [facility] [place] [address] [place] [address] Michael Puga DO [address] [place] [address] 6 wk f/u labs and meds [facility] [place] Comment on above: 6 wk f/u labs and meds Start: 05-26-2024 End: 08-25-2024 Comprehensive metabolic 2000 panel - Serum or Plasma COMPREHENSIVE METABOLIC PANEL Lab Routine Function kidney decreased Congestive heart failure, unspecified HF chronicity, unspecified heart failure type (HCC) Expected: 05/26/2024, Expires: 08/25/2024 [facility] Comment on above: Expected: 05/26/2024, Expires: Start: 05-26-2024 End: 08-25-2024 Natriuretic peptide.B prohormone N-Terminal [Mass/volume] in Serum or Plasma NT PRO BNP Lab Routine Function kidney decreased Congestive heart failure, unspecified HF chronicity, unspecified heart failure type (HCC) Expected: 05/26/2024, Expires: 08/25/2024 [facility] Work Phone: Comment on above: Expected: 05/26/2024, Expires: Start: 05-19-2024 End: 08-18-2024 CBC W Auto Differential panel - Blood COMPLETE BLOOD COUNT AND DIFFERENTIAL Lab Routine Congestive heart failure, unspecified HF chronicity, unspecified heart failure type (HCC) Function kidney decreased Expected: 05/19/2024, Expires: 08/18/2024 [facility] Comment on above: Expected: 05/19/2024, Expires: Start: 05-19-2024 End: 08-18-2024 Hepatic function 2000 panel - Serum or Plasma HEPATIC FUNCTION PNL Lab Routine Congestive heart failure, unspecified HF chronicity, unspecified heart failure type (HCC) Function kidney decreased Expected: 05/19/2024, Expires: 08/18/2024 [facility] Work Phone: Comment on above: Expected: 05/19/2024, Expires: Start: 05-19-2024 End: 08-18-2024 Natriuretic peptide.B prohormone N-Terminal [Mass/volume] in Serum or Plasma NT PRO BNP Lab Routine Congestive heart failure, unspecified HF chronicity, unspecified heart failure type (HCC) Function kidney decreased Expected: 05/19/2024, Expires: 08/18/2024 [facility] Comment on above: Expected: 05/19/2024, Expires: Start: 05-17-2024 End: 08-16-2024 Comprehensive metabolic 2000 panel - Serum or Plasma COMPREHENSIVE METABOLIC PANEL Lab STAT Function kidney decreased Congestive heart failure, unspecified HF chronicity, unspecified heart failure type (HCC) Expected: 05/17/2024, Expires: 08/16/2024 [facility] Work Phone: Comment on above: Expected: 05/17/2024, Expires: Start: 05-11-2024 End: 08-10-2024 Comprehensive metabolic 2000 panel - Serum or Plasma [facility] Comment on above: Expected: 05/11/2024, Expires: Start: 05-11-2024 End: 08-10-2024 Natriuretic peptide.B prohormone N-Terminal [Mass/volume] in Serum or Plasma [facility] Comment on above: Expected: 05/11/2024, Expires: Start: 05-11-2024 End: 08-10-2024 Thyrotropin [Units/volume] in Serum or Plasma [facility] Work Phone: Comment on above: Expected: 05/11/2024, Expires: Start: 05-11-2024 End: 08-10-2024 Thyroxine (T4) free [Mass/volume] in Serum or Plasma [facility] Comment on above: Expected: 05/11/2024, Expires: Start: 05-11-2024 End: 05-11-2024 Patient encounter procedure 05/11/2024 1:00 PM EST Office Visit Family Medicine [place] [address] [facility] [place] [address] Key Portillo, HOUSE DIRECTOR.STEREOPTIC PROJECTION TOPOGRAPHER [address] [facility] [place] [id number] TCM. [facility] Hosp f/u discharged 05-02-24. CHF Family [facility] [place] Comment on above: TCM. [facility] Hosp f/u discharged 05-02-24. C HF Start: 05-04-2024 End: 05-04-2024 Patient encounter procedure 05/04/2024 1:00 PM EST Office Visit [facility] [address] [place] [address] Key Portillo, HOUSE DIRECTOR.STEREOPTIC PROJECTION TOPOGRAPHER [address] [place] [address] right leg pain x 2 weeks [facility] Comment on above: right leg pain x 2 weeks Start: 05-03-2024 Advance Directive Discussion Advance Directive Discussion [facility] Start: 05-02-2024 Patient discharge [facility] Start: 05-01-2024 End: 05-01-2024 Patient encounter procedure 05/01/2024 2:15 PM EST OT/PT/Speech Visit [facility] [address] [place] [address] Sarah Merchant, PT [address] [place] [address] Right knee (referral in scanned docs) [facility] Comment on above: Right knee (referral in scanned docs) Start: 05-01-2024 Referral to service [facility] Start: 04-30-2024 End: 05-01-2024 [facility] Start: 04-30-2024 Dual pressure spontaneous ventilation support [facility] Start: 04-30-2024 Following clinical pathway protocol [facility] Start: 04-30-2024 Continuous pulse oximetry [facility] Start: 04-30-2024 Assessment of risk of venous thromboembolism [facility] Start: 04-30-2024 Elevation of affected extremity [facility] Start: 04-30-2024 Fall prevention [facility] Start: 04-30-2024 Inhalation therapy procedure [facility] Start: 04-30-2024 Insertion of catheter into peripheral vein [facility] Start: 04-30-2024 Introduction of urinary catheter [facility] Start: 04-30-2024 Measuring intake and output [facility] Start: 04-30-2024 Notification of physician [facility] Start: 04-30-2024 Oxygen therapy [facility] Start: 04-30-2024 Patient education [facility] Start: 04-30-2024 Patient referral to dietitian [facility] Start: 04-30-2024 Providing care according to standard [facility] Start: 04-30-2024 Provision of activity privileges [facility] Start: 04-30-2024 Referral to occupational therapist [facility] Start: 04-30-2024 Referral to service [facility] Start: 04-30-2024 Admission procedure [facility] Start: 04-27-2024 End: 04-27-2024 Patient encounter procedure 04/27/2024 11:40 AM EST Office Visit Family [facility] [address] [place] [address] Key Portillo, HOUSE DIRECTOR.[facility] [address] [place], [place] [id number] right leg pain x 2 weeks [facility] Comment on above: right leg pain x 2 weeks Start: 04-20-2024 End: 04-20-2024 Patient encounter procedure [facility] Comment on above: Right knee (referral in scanned docs) Start: 04-18-2024 End: 04-18-2024 Patient encounter procedure 04/18/2024 1:30 PM EST OT/PT/Speech Visit [facility] [address] [place] [address] Sarah Merchant, PT [address] [place] [address] Right knee (referral in scanned docs) [facility] Comment on above: Right knee (referral in scanned docs) Start: 03-31-2024 End: 03-31-2024 Patient encounter procedure 03/31/2024 1:15 PM EST Appointment [facility] [address] [place] [address] Raymundo De León MD [address] [place] [address] [facility] Start: 03-31-2024 Subsequent hospital visit by physician 03/31/2024 10:10 AM EST Hospital Encounter [facility] [address] [place] [address] Raymundo De León MD [address] [place] [address] Yvonne Manley MD [address] [place] [address] Kelsea Mo APRN.[employer] C[employer]TER Epigastric abdominal pain [R10.13] [facility] Comment on above: Epigastric abdominal pain [R10.13] Start: 03-27-2024 End: 03-27-2024 Anesthesia consultation 03/27/2024 2:20 PM EST PAT Pre Anesthesia [address] [place] [address] 1, Pacc [place] [address] [place] [address] EGD Pre Anesthesia Comment on above: EGD Start: 03-23-2024 End: 03-23-2024 Patient encounter procedure 03/23/2024 12:45 PM EST OT/PT/Speech Visit [facility] [address] [place] [address] Sarah Merchant, PT [address] [place], [place] [phone] Right knee (referral in scanned docs) [facility] Comment on above: Right knee (referral in scanned docs) Start: 03-20-2024 End: 03-20-2024 Patient encounter procedure 03/20/2024 2:15 PM EST OT/PT/Speech Visit [facility] [address] [place] [address] Sarah Merchant, PT [address] [place], [place] [phone] Right knee (referral in scanned docs) [facility] Comment on above: Right knee (referral in scanned docs) Start: 03-16-2024 End: 03-16-2024 Patient encounter procedure 03/16/2024 12:45 PM EST OT/PT/Speech Visit [facility] [address] [place], [place] [phone] Sarah Merchant, PT [address] [place], [place] [phone] Right knee (referral in scanned docs) [facility] Comment on above: Right knee (referral in scanned docs) Start: 03-14-2024 End: 03-14-2024 Patient encounter procedure 03/14/2024 10:00 AM EST OT/PT/Speech Visit [facility] [address] [place] [address] Joy Sun, STEAM DRIER TENDER Right knee (referral in scanned docs) [facility] Comment on above: Right knee (referral in scanned docs) Start: 03-13-2024 End: 03-13-2024 Patient encounter procedure General Surgery Comment on above: Epigastric abdominal pain [R10.13] Epigastric abdominal pain [R10.13] - left VM stating she will be seeing Kimberlee and not Dr de león Start: 03-08-2024 End: 03-08-2024 Patient encounter procedure 03/08/2024 12:45 PM EST OT/PT/Speech Visit [facility] [address], [place] [phone] Joy Sun, STEAM DRIER TENDER Right knee (referral in scanned docs) [facility] Comment on above: Right knee (referral in scanned docs) Start: 03-02-2024 End: 03-02-2024 Patient encounter procedure 03/02/2024 12:45 PM EDT OT/PT/Speech Visit [facility] [address] [place], [place] [phone] Sarah Merchant, PT [address] [place], [place] [phone] Right knee (referral in scanned docs) [facility] Comment on above: Right knee (referral in scanned docs) Start: 03-01-2024 End: 03-01-2024 Patient encounter procedure 03/01/2024 5:40 PM EDT Office Visit Family Medicine [place] [address] [place] [address] Michael Puga DO [address] [place] [address] 3 month follow up Family Medicine [place] Comment on above: 3 month follow up Start: 02-17-2024 End: 02-17-2024 Patient encounter procedure 02/17/2024 3:45 PM EDT OT/PT/Speech Visit [facility] [address] [place] [address] Sarah Merchant, PT [address] [place], [place] [phone] Right knee (referral in scanned docs) [facility] Comment on above: Right knee (referral in scanned docs) Start: 02-14-2024 End: 02-14-2024 Patient encounter procedure 02/14/2024 1:30 PM EDT OT/PT/Speech Visit [facility] [address] [place] [address] Wilfred Mcclellan, STEAM DRIER TENDER [address] [facility], [place] [phone] Right knee (referral in scanned docs) [facility] Comment on above: Right knee (referral in scanned docs) Start: 02-10-2024 End: 02-10-2024 Patient encounter procedure 02/10/2024 12:45 PM EDT OT/PT/Speech Visit [facility] [address] [place] [address] Sarah Merchant, PT [address] [place], [place] [phone] Right knee (referral in scanned docs) [facility] Comment on above: Right knee (referral in scanned docs) Start: 02-07-2024 End: 02-07-2024 Patient encounter procedure 02/07/2024 2:15 PM EDT OT/PT/Speech Visit [facility] [address] [place] [address] Sarah Merchant, PT [address] [place], [place] [phone] Right knee (referral in scanned docs) [facility] Comment on above: Right knee (referral in scanned docs) Start: 02-03-2024 End: 02-03-2024 Patient encounter procedure 02/03/2024 3:45 PM EDT OT/PT/Speech Visit [facility] [address] [place] [address] Sarah Merchant, PT [address] [place], [place] [phone] Right knee (referral in scanned docs) [facility] Comment on above: Right knee (referral in scanned docs) Start: 01-31-2024 End: 01-31-2024 Patient encounter procedure 01/31/2024 2:15 PM EDT OT/PT/Speech Visit [facility] [address] [place] [address] Sarah Merchant, PT [address] [place], [place] [phone] Right knee (referral in scanned docs) [facility] Comment on above: Right knee (referral in scanned docs) Start: 01-26-2024 End: 01-26-2024 Patient encounter procedure 01/26/2024 3:00 PM EDT OT/PT/Speech Visit [facility] [address] [place] [address] Wilfred Mcclellan, STEAM DRIER TENDER [address] [place], [place] [phone] Right knee (referral in scanned docs) [facility] Comment on above: Right knee (referral in scanned docs) Start: 01-18-2024 End: 01-18-2024 Patient encounter procedure 01/18/2024 1:30 PM EDT OT/PT/Speech Visit [facility] [address] [place] [address] Sarah Merchant, PT [address] [place] [phone] RECHECK Right knee (referral in scanned docs) [facility] Comment on above: RECHECK Right knee (referral in scanned docs) Start: 01-17-2024 DIABETES SCREEN DIABETES SCREEN [facility] Start: 01-02-2024 Covid-19 Vaccine () Covid-19 Vaccine () [facility] Start: 01-02-2024 Covid-19 Vaccine () Covid-19 Vaccine () [facility] Start: 01-02-2024 Influenza vaccination Influenza Vaccine (#1) [facility] Start: 12-16-2023 End: 12-16-2023 Patient encounter procedure [facility] Comment on above: Right knee (referral in scanned docs) RECHECK Right knee ( referral in scanned docs) Start: 12-13-2023 End: 12-13-2023 Patient encounter procedure 12/13/2023 3:45 PM EDT OT/PT/Speech Visit [facility] [address] [place] [address] Sarah Merchant, PT [address] [place], [place] [phone] Right knee (referral in scanned docs) [facility] Comment on above: Right knee (referral in scanned docs) Start: 12-07-2023 End: 12-07-2023 Patient encounter procedure 12/07/2023 4:30 PM EDT OT/PT/Speech Visit [facility] [address] [place], [place] [phone] Wilfred Mcclellan, STEAM DRIER TENDER [address] [place] [phone] Right knee (referral in scanned docs) [facility] Comment on above: Right knee (referral in scanned docs) Start: 12-02-2023 End: 12-02-2023 Patient encounter procedure 12/02/2023 3:45 PM EDT OT/PT/Speech Visit [facility] [address] [place] [address] Sarah Merchant, PT [address] [place], [place] [phone] Right knee (referral in scanned docs) [facility] Comment on above: Right knee (referral in scanned docs) Start: 12-01-2023 End: 12-01-2023 Patient encounter procedure 12/01/2023 1:20 PM EDT Office Visit Family Medicine [place] [address] [place] [address] Micahel Puga DO [address] [facility], [place] [phone] follow up, review labs [facility] [place] Comment on above: follow up, review labs Start: 11-30-2023 End: 11-30-2023 Patient encounter procedure 11/30/2023 2:15 PM EDT OT/PT/Speech Visit [facility] [address] [place] [address] Sarah Merchant, PT [address] [place], [place] [phone] Right knee (referral in scanned docs) [facility] Comment on above: Right knee (referral in scanned docs) Start: 11-25-2023 End: 11-25-2023 Patient encounter procedure 11/25/2023 8:30 AM EDT OT/PT/Speech Visit [facility] [address] [place] [address] Sarah Merchant, PT [address] [place], [place] [phone] Right knee (referral in scanned docs) [facility] Comment on above: Right knee (referral in scanned docs) Start: 11-13-2023 End: 02-12-2024 CBC W Auto Differential panel - Blood COMPLETE BLOOD COUNT AND DIFFERENTIAL Lab Routine Primary hypertension Expected: 11/13/2023, Expires: 02/12/2024 [facility] Comment on above: Expected: 11/13/2023, Expires: Start: 11-13-2023 End: 02-12-2024 Comprehensive metabolic 2000 panel - Serum or Plasma COMPREHENSIVE METABOLIC PANEL Lab Routine Primary hypertension Expected: 11/13/2023, Expires: 02/12/2024 [facility] Work Phone: Comment on above: Expected: 11/13/2023, Expires: Start: 11-13-2023 End: 02-12-2024 Hemoglobin A1c in Blood HEMOGLOBIN A1C Lab Routine IFG (impaired fasting glucose) Expected: 11/13/2023, Expires: 02/12/2024 [facility] Comment on above: Expected: 11/13/2023, Expires: Start: 11-13-2023 End: 02-12-2024 Lipid 1996 panel - Serum or Plasma LIPID PANEL BASIC Lab Routine Primary hypertension Expected: 11/13/2023, Expires: 02/12/2024 [facility] Comment on above: Expected: 11/13/2023, Expires: Start: 11-13-2023 End: 02-12-2024 Thyroxine (T4) free [Mass/volume] in Serum or Plasma T4 FREE/FREE THYROXINE Lab Routine Subclinical hypothyroidism Expected: 11/13/2023, Expires: 02/12/2024 [facility] Comment on above: Expected: 11/13/2023, Expires: Start: 11-13-2023 End: 02-12-2024 Triiodothyronine (T3) [Mass/volume] in Serum or Plasma T3 Lab Routine Subclinical hypothyroidism Expected: 11/13/2023, Expires: 02/12/2024 [facility] Comment on above: Expected: 11/13/2023, Expires: Start: 10-14-2023 End: 01-13-2024 Thyrotropin [Units/volume] in Serum or Plasma THYROID STIMULATING HORMONE Lab Routine Subclinical hypothyroidism Expected: 10/14/2023, Expires: 01/13/2024 [facility] Comment on above: Expected: 10/14/2023, Expires: Start: 10-14-2023 End: 10-14-2023 Patient encounter procedure 10/14/2023 1:20 PM EDT [facility] [address] [place] [address] Key Portillo APRN.STEREOPTIC PROJECTION TOPOGRAPHER [address] [place] [address] Hospital Follow Up (TCM thru 10/15) [facility] Comment on above: Hospital Follow Up (TCM thru 10/15) Start: 10-06-2023 End: 01-05-2024 Comprehensive metabolic 2000 panel - Serum or Plasma COMPREHENSIVE METABOLIC PANEL Lab Routine Diarrhea, unspecified type Expected: 10/06/2023, Expires: 01/05/2024 [facility] Work Phone: Comment on above: Expected: 10/06/2023, Expires: Start: 08-05-2023 Covid-19 Vaccine () Covid-19 Vaccine () [facility] Start: 07-08-2023 End: 10-07-2023 Thyrotropin [Units/volume] in Serum or Plasma TSH BLD Lab Routine Thyroid disease Expected: 07/08/2023, Expires: 10/07/2023 [facility] Work Phone: Comment on above: Expected: 07/08/2023, Expires: 4 Start: 07-08-2023 End: 10-07-2023 Thyroxine (T4) free [Mass/volume] in Serum or Plasma T4 FREE/FREE THYROX Lab Routine Thyroid disease Expected: 07/08/2023, Expires: 10/07/2023 [facility] Work Phone: Comment on above: Expected: 07/08/2023, Expires: 4 Start: 07-08-2023 End: 10-07-2023 Triiodothyronine (T3) Free [Mass/volume] in Serum or Plasma T3 FREE BLD Lab Routine Thyroid disease Expected: 07/08/2023, Expires: 10/07/2023 [facility] Work Phone: Comment on above: Expected: 07/08/2023, Expires: 4 Start: 06-04-2023 COVID-19 VACCINE (3 - Booster for Pfizer series) COVID-19 VACCINE (3 - Booster for Pfizer series) [facility] Comment on above: Postponed from 09/27/2020 (Declined at t his time) Start: 06-04-2023 COVID-19 VACCINE (3 - Pfizer series) COVID-19 VACCINE (3 - Pfizer series) [facility] Comment on above: Postponed from 09/27/2020 (Declined at t his time) Start: 06-04-2023 Urine microalbumin profile DTAP,TDAP,TD (2 - Tdap) [facility] Comment on above: Postponed from 08/31/2013 (Declined at t his time) Start: 05-03-2023 Advance Directive Discussion Advance Directive Discussion [facility] Start: 04-21-2023 ANNUAL PCP TEAM CHRONIC DISEASE VISIT ANNUAL PCP TEAM CHRONIC DISEASE VISIT [facility] Start: 04-21-2023 BP CONTROLLED (<130/80) BP CONTROLLED (<130/80) [facility] Start: 03-24-2023 End: 05-24-2023 CBC panel - Blood by Automated count CBC Lab Routine Primary hypertension Expected: 03/24/2023, Expires: 05/24/2023 [facility] Work Phone: Comment on above: Expected: 03/24/2023, Expires: 4 Start: 03-24-2023 End: 05-24-2023 Cobalamin (Vitamin B12) [Mass/volume] in Serum or Plasma VITAMIN B12 BLOOD Lab Routine Vitamin B12 deficiency Expected: 03/24/2023, Expires: 05/24/2023 [facility] Work Phone: Comment on above: Expected: 03/24/2023, Expires: 4 Start: 03-24-2023 End: 05-24-2023 Comprehensive metabolic 2000 panel - Serum or Plasma COMP METABOLIC PANEL Lab Routine Primary hypertension Expected: 03/24/2023, Expires: 05/24/2023 [facility] Work Phone: Comment on above: Expected: 03/24/2023, Expires: 4 Start: 03-24-2023 End: 05-24-2023 Hemoglobin A1c in Blood HGB A1C Lab Routine IFG (impaired fasting glucose) Expected: 03/24/2023, Expires: 05/24/2023 [facility] Work Phone: Comment on above: Expected: 03/24/2023, Expires: 4 Start: 03-24-2023 End: 05-24-2023 Thyrotropin [Units/volume] in Serum or Plasma TSH BLD Lab Routine Fatigue, unspecified type Obesity, Class II, BMI 35-39.9 IFG (impaired fasting glucose) Expected: 03/24/2023, Expires: 05/24/2023 [facility] Work Phone: Comment on above: Expected: 03/24/2023, Expires: 4 Start: 03-24-2023 End: 05-24-2023 Thyroxine (T4) free [Mass/volume] in Serum or Plasma T4 FREE/FREE THYROX Lab Routine Fatigue, unspecified type Obesity, Class II, BMI 35-39.9 IFG (impaired fasting glucose) Expected: 03/24/2023, Expires: 05/24/2023 [facility] Work Phone: Comment on above: Expected: 03/24/2023, Expires: 4 Start: 02-16-2023 ANNUAL PCP TEAM CHRONIC DISEASE VISIT ANNUAL PCP TEAM CHRONIC DISEASE VISIT [facility] Start: 02-16-2023 BP CONTROLLED (<130/80) BP CONTROLLED (<130/80) [facility] Start: 01-01-2023 Covid-19 Vaccine ( season) Covid-19 Vaccine () [facility] Start: 01-01-2023 Influenza vaccination [facility] Start: 12-16-2022 ANNUAL PCP TEAM CHRONIC DISEASE VISIT ANNUAL PCP TEAM CHRONIC DISEASE VISIT [facility] Start: 09-19-2022 End: 11-19-2022 25-hydroxyvitamin D3 [Mass/volume] in Serum or Plasma VITAMIN D 25 HYDROXY Lab Routine Vitamin D deficiency Expected: 09/19/2022, Expires: 11/19/2022 [facility] Work Phone: Comment on above: Expected: 09/19/2022, Expires: 3 Start: 09-19-2022 End: 11-19-2022 Cobalamin (Vitamin B12) [Mass/volume] in Serum or Plasma VITAMIN B12 BLOOD Lab Routine Vitamin B12 deficiency Expected: 09/19/2022, Expires: 11/19/2022 [facility] Work Phone: Comment on above: Expected: 09/19/2022, Expires: 3 Start: 09-19-2022 End: 11-19-2022 Comprehensive metabolic 2000 panel - Serum or Plasma COMP METABOLIC PANEL Lab Routine Fatigue, unspecified type Expected: 09/19/2022, Expires: 11/19/2022 [facility] Work Phone: Comment on above: Expected: 09/19/2022, Expires: 3 Start: 09-19-2022 End: 11-19-2022 Hemoglobin A1c in Blood HGB A1C Lab Routine IFG (impaired fasting glucose) Expected: 09/19/2022, Expires: 11/19/2022 [facility] Work Phone: Comment on above: Expected: 09/19/2022, Expires: 3 Start: 09-19-2022 End: 11-19-2022 Iron and Iron binding capacity panel - Serum or Plasma IRON + TIBC Lab Routine Iron deficiency Expected: 09/19/2022, Expires: 11/19/2022 [facility] Work Phone: Comment on above: Expected: 09/19/2022, Expires: 3 Start: 09-19-2022 End: 11-19-2022 Lipid 1996 panel - Serum or Plasma LIPID PANEL BASIC Lab Routine Hyperlipidemia, unspecified hyperlipidemia type Expected: 09/19/2022, Expires: 11/19/2022 [facility] Work Phone: Comment on above: Expected: 09/19/2022, Expires: 3 Start: 06-13-2022 ANNUAL PCP TEAM CHRONIC DISEASE VISIT ANNUAL PCP TEAM CHRONIC DISEASE VISIT [facility] Start: 06-04-2022 End: 08-04-2022 25-hydroxyvitamin D3 [Mass/volume] in Serum or Plasma [facility] Work Phone: Comment on above: Expected: 06/04/2022, Expires: Start: 06-04-2022 End: 08-04-2022 CBC W Auto Differential panel - Blood [facility] Work Phone: Comment on above: Expected: 06/04/2022, Expires: Start: 06-04-2022 End: 08-04-2022 Cobalamin (Vitamin B12) [Mass/volume] in Serum or Plasma [facility] Work Phone: Comment on above: Expected: 06/04/2022, Expires: Start: 06-04-2022 End: 08-04-2022 Comprehensive metabolic 2000 panel - Serum or Plasma [facility] Work Phone: Comment on above: Expected: 06/04/2022, Expires: Start: 06-04-2022 End: 08-04-2022 Ferritin [Mass/volume] in Serum or Plasma [facility] Work Phone: Comment on above: Expected: 06/04/2022, Expires: Start: 06-04-2022 End: 08-04-2022 Hemoglobin A1c in Blood [facility] Work Phone: Comment on above: Expected: 06/04/2022, Expires: 3 Start: 06-04-2022 End: 08-04-2022 Iron and Iron binding capacity panel - Serum or Plasma [facility] Work Phone: Comment on above: Expected: 06/04/2022, Expires: 3 Start: 06-04-2022 End: 08-04-2022 Natriuretic peptide.B prohormone N-Terminal [Mass/volume] in Serum or Plasma [facility] Work Phone: Comment on above: Expected: 06/04/2022, Expires: 3 Start: 06-04-2022 End: 08-04-2022 Thyrotropin [Units/volume] in Serum or Plasma [facility] Work Phone: Comment on above: Expected: 06/04/2022, Expires: 3 Start: 05-03-2022 ADVANCE DIRECTIVE DISCUSSION ADVANCE DIRECTIVE DISCUSSION [facility] Start: 01-01-2022 Influenza vaccination INFLUENZA (#1) [facility] Start: 05-03-2021 ADVANCE DIRECTIVE DISCUSSION ADVANCE DIRECTIVE DISCUSSION [facility] Start: 01-02-2021 COVID-19 VACCINE (3 - Booster for Pfizer series) COVID-19 VACCINE (3 - Booster for Pfizer series) [facility] Start: 09-27-2020 COVID-19 VACCINE (3 - Booster for Pfizer series) COVID-19 VACCINE (3 - Booster for Pfizer series) [facility] Start: 03-04-2019 BP CONTROLLED (<130/80) BP CONTROLLED (<130/80) [facility] Start: 05-12-2017 FECAL OCCULT BLOOD FECAL OCCULT BLOOD [facility] Start: 05-06-2017 End: 05-06-2017 Appointment Appointment [facility] Work Phone: Start: 12-03-2016 End: 12-03-2016 Appointment Appointment [facility] Work Phone: Start: 12-03-2016 End: 12-03-2016 Follow Up Appt 6 months Follow Up Appt 6 months [facility] Work Phone: Start: 12-03-2016 End: 12-03-[address] [facility] Work Phone: Start: 10-22-2016 End: 10-22-2016 Appointment Appointment [facility] Work Phone: Start: 10-22-2016 End: 10-22-2016 Follow Up Appt 6 months Follow Up Appt 6 months [facility] Work Phone: Start: 10-22-2016 End: 10-22-2016 MMM MMM [facility] Work Phone: Start: 06-03-2016 End: 06-03-2016 Follow Up Appt 6 months Follow Up Appt 6 months [facility] Work Phone: Start: 06-03-2016 End: 06-03-2016 [facility] Work Phone: Start: 2016 RSV Vaccine (1 - 1-dose 75+ series) RSV Vaccine (1 - 1-dose 75+ series) [facility] Start: 04-15-2016 End: 04-15-2016 AREA OPERATIONS MANAGER AREA OPERATIONS MANAGER [facility] Work Phone: Start: 04-15-2016 End: 04-15-2016 Follow Up Appt 6 months Follow Up Appt 6 months [facility] Work Phone: Start: 12-02-2015 End: 04-06-2016 Follow Up Appt 3 months Follow Up Appt 3 months [facility] Work Phone: Start: 12-02-2015 End: 04-06-2016 [facility] Work Phone: Start: 08-30-2015 End: 08-30-2015 Follow Up Appt 6 months Follow Up Appt 6 months [facility] Work Phone: Start: 08-30-2015 End: 08-30-2015 Follow Up Appt 6 weeks Follow Up Appt 6 weeks [facility] Work Phone: Start: 08-30-2015 End: 08-30-2015 MMM MMM [facility] Work Phone: Start: 06-11-2015 End: 06-11-2015 24 hour holter monitor 24 hour holter monitor [facility] Work Phone: Start: 06-11-2015 End: 06-11-2015 Echocardiography Echocardiogram (complete) [facility] Work Phone: Start: 05-28-2015 End: 05-28-2015 *BMP *BMP [facility] Work Phone: Start: 05-28-2015 End: 05-28-2015 Carotid duplex Carotid duplex [facility] Work Phone: Start: 05-28-2015 End: 05-28-2015 Follow Up Appt 3 months Follow Up Appt 3 months [facility] Work Phone: Start: 05-28-2015 End: 08-16-2015 Follow Up Appt 6 months Follow Up Appt 6 months [facility] Work Phone: Start: 05-28-2015 End: 05-28-2015 MMM MMM [facility] Work Phone: Start: 05-28-2015 End: 08-16-2015 Pacer Clinic Pacer Clinic [facility] Work Phone: Start: 01-16-2015 SHINGRIX VACCINE (1 of 2) SHINGRIX VACCINE (1 of 2) [facility] Start: 01-16-2015 SHINGRIX VACCINE (2 of 3) SHINGRIX VACCINE (2 of 3) [facility] Start: 11-22-2014 End: 11-22-2014 AREA OPERATIONS MANAGER AREA OPERATIONS MANAGER [facility] Work Phone: Start: 11-22-2014 End: 11-22-2014 Electrocardiogram, complete EKG (In office) [facility] Work Phone: Start: 11-22-2014 End: [...] 6 months Follow Up Appt 6 months [facility] Work Phone: Start: 07-25-2014 End: 11-07-2014 Pacer Clinic Pacer Clinic [facility] Work Phone: Start: 05-25-2014 End: 11-07-2014 Follow Up Appt 6 months Follow Up Appt 6 months [facility] Work Phone: Start: 05-25-2014 End: 05-25-2014 MMM MMM [facility] Work Phone: Start: 05-25-2014 End: 11-07-2014 Pacer Clinic Pacer Clinic [facility] Work Phone: Start: 01-26-2014 End: 11-07-2014 Follow Up Appt 6 months Follow Up Appt 6 months [facility] Work Phone: Start: 01-26-2014 End: 11-07-2014 Pacer Clinic Pacer Clinic [facility] Work Phone: Start: 11-22-2013 End: 11-22-2013 AREA OPERATIONS MANAGER AREA OPERATIONS MANAGER [facility] Work Phone: Start: 11-22-2013 End: 11-22-2013 Follow Up Appt 6 months Follow Up Appt 6 months [facility] Work Phone: Start: 10-25-2013 End: 11-22-2013 Follow Up Appt 3 months Follow Up Appt 3 months [facility] Work Phone: Start: 10-25-2013 End: 11-22-2013 Pacer Clinic Pacer Clinic [facility] Work Phone: Start: 08-31-2013 Urine microalbumin profile DTAP,TDAP,TD (2 - Tdap) [facility] Start: 08-16-2013 End: 08-16-2013 Follow Up Appt Other Follow Up Appt Other [facility] Work Phone: Start: 07-19-2013 End: 07-20-2013 *BMP *BMP [facility] Work Phone: Start: 07-19-2013 End: 07-20-2013 *CBC with Differential *CBC with Differential [facility] Work Phone: Start: 07-19-2013 End: 07-19-2013 Follow Up Appt 1 month Follow Up Appt 1 month [facility] Work Phone: Start: 07-19-2013 End: 07-20-2013 Magnesium *Magnesium [facility] Work Phone: Start: 07-19-2013 End: 07-19-2013 MMM MMM [facility] Work Phone: Start: 07-18-2013 End: 07-19-2013 Follow Up Appt 3 months Follow Up Appt 3 months [facility] Work Phone: Start: 07-18-2013 End: 07-19-2013 Pacer Clinic Pacer Clinic [facility] Work Phone: Start: 05-24-2013 End: 05-26-2013 *BMP *BMP [facility] Work Phone: Start: 05-24-2013 End: 05-24-2013 AREA OPERATIONS MANAGER AREA OPERATIONS MANAGER [facility] Work Phone: Start: 05-24-2013 End: 05-24-2013 Follow Up Appt 6 months Follow Up Appt 6 months [facility] Work Phone: Start: 05-24-2013 End: 07-18-2013 Follow Up Appt Other Follow Up Appt Other [facility] Work Phone: Start: 04-10-2013 End: 05-16-2013 Follow Up Appt 3 months Follow Up Appt 3 months [facility] Work Phone: Start: 04-10-2013 End: 05-16-2013 Pacer Clinic Pacer Clinic [facility] Work Phone: Start: 12-07-2012 End: 05-16-2013 Follow Up Appt 3 months Follow Up Appt 3 months [facility] Work Phone: Start: 12-07-2012 End: 05-16-2013 Pacer Clinic Pacer Clinic [facility] Work Phone: Start: 11-15-2012 End: 11-15-2012 Follow Up Appt 6 months Follow Up Appt 6 months [facility] Work Phone: Start: 11-15-2012 End: 11-15-2012 MMM MMM [facility] Work Phone: Start: 05-18-2012 End: 05-16-2013 *BMP *BMP [facility] Work Phone: Start: 05-18-2012 End: 05-16-2013 *CBC with Differential *CBC with Differential [facility] Work Phone: Start: 05-18-2012 End: 05-16-2013 Follow Up Appt 6 months Follow Up Appt 6 months [facility] Work Phone: Start: 05-18-2012 End: 05-16-2013 Thyroid stimulating hormone (TSH) *TSH [facility] Work Phone: Start: 05-18-2012 End: 05-16-2013 Thyroxine (T4) *T4 (Total) [facility] Work Phone: Start: 10-27-2011 End: 10-27-2011 Follow Up Appt 6 months Follow Up Appt 6 months [facility] Work Phone: Start: 07-14-2011 End: 05-16-2013 Follow Up Appt 3 months Follow Up Appt 3 months [facility] Work Phone: Start: 05-05-2011 End: 05-07-2011 *BMP *BMP [facility] Work Phone: Start: 05-05-2011 End: 05-06-2011 aPTT *PTT-Partial Thromboplastin Time [facility] Work Phone: Start: 05-05-2011 End: 05-06-2011 aPTT Coag time (PPP) *PTT-Partial Thromboplastin Time [facility] Work Phone: Start: 05-05-2011 End: 05-06-2011 CBC W Auto Differential panel - Blood *CBC without Diff [facility] Work Phone: Start: 05-05-2011 End: 05-06-2011 Chest x-ray X-Ray, Chest, PA & Lateral [facility] Work Phone: Start: 05-05-2011 End: 05-06-2011 Coagulation factor induced.INR assay in platelet poor plasma *PT/INR [facility] Work Phone: Start: 05-05-2011 End: 05-07-2011 Electrocardiogram, complete EKG (In office) [facility] Work Phone: Start: 05-05-2011 End: 05-16-2013 Follow Up Appt Other Follow Up Appt Other [facility] Work Phone: Start: 05-05-2011 End: 05-06-2011 Left Heart Cath Left Heart Cath [facility] Work Phone: Start: 04-07-2011 End: 04-07-2011 Follow Up Appt 3 months Follow Up Appt 3 months [facility] Work Phone: Start: 04-02-2006 Medicare Annual Wellness Visit Medicare Annual Wellness Visit [facility] Start: 2001 RSV Vaccine (1 - 1-dose 60+ series) RSV Vaccine (1 - 1-dose 60+ series) [facility] Amphetamines [Presen ce] in Urine by Screen method >1000 ng/mL [facility] Bacteria identified in Urine by Culture URINE CULTURE Microbiology Routine Urinary frequency 10/20/2021 4:08 PM EDT [facility] Work Phone: Benzodiazepine measurement, urine [facility] Cocaine measurement, urine [facility] End: 06-04-2023 ECG COMPLETE ECG COMPLETE ECG Routine SOB (shortness of breath) on exertion 1 Occurrences starting 06/04/2022 until 06/04/2023 [facility] Work Phone: Comment on above: 1 Occurrences starting 06/04/2022 until 06/04/2023 ECG COMPLETE ECG COMPLETE ECG Fatigue, unspecified type SOB (shortness of breath) on exertion Bilateral leg edema 06/04/2022 3:25 PM EST [facility] End: 06-04-2023 Echocardiography ECHO Cardiology Routine SOB (shortness of breath) on exertion 1 Occurrences starting 06/04/2022 until 06/04/2023 [facility] Work Phone: Comment on above: 1 Occurrences starting 06/04/2022 until 06/04/2023 End: 12-18-2022 EGD DIAGNOSTIC EGD DIAGNOSTIC Endoscopy Routine Gastroesophageal reflux disease with esophagitis without hemorrhage 1 Occurrences starting 12/18/2021 until 12/18/2022 [facility] Work Phone: Comment on above: 1 Occurrences starting 12/18/2021 until 12/18/2022 End: 03-13-2025 EGD DIAGNOSTIC EGD DIAGNOSTIC Endoscopy Routine Epigastric abdominal pain Pulmonary hypertension (HCC) 1 Occurrences starting 03/13/2024 until 03/13/2025 [facility] Work Phone: Comment on above: 1 Occurrences starting 03/13/2024 until 03/13/2025 Ethanol [Mass/volume ] in Serum or Plasma [facility] fentaNYL [Presence] in Urine by Screen method [facility] Folate [Moles/volume ] in Serum or Plasma [facility] Glucose [Mass/volume ] in Serum or Plasma GLUCOSE, BLOOD (POC) Lab Routine Urinary frequency Glucosuria Ordered: 10/20/2021 [facility] Work Phone: Comment on above: Ordered: 10/20/2021 Hemoglobin A1c/Hemoglobin.total in Blood [facility] Magnesium measurement [facility] Methadone measuremen t, urine [facility] NM Heart Views W str ess and W radionuclide IV [facility] Noninvasive ear/puls e oximetry single deter NONINVASV OXYGEN SATUR;SINGLE Procedures Routine Congestive heart failure, unspecified HF chronicity, unspecified heart failure type (HCC) Obstructive lung disease (HCC) Chronic respiratory failure with hypoxia (HCC) Ordered: 09/07/2024 [facility] Work Phone: Comment on above: Ordered: 09/07/2024 Patient Education ED Fall Prevention [facility] Work Phone: Patient referral [facility] Work Phone: Phencyclidine [Prese nce] in Urine [facility] End: 01-11-2024 Polysomnogram POLYSOMNOGRAM (PSG) Procedures Routine Fatigue, unspecified type 1 Occurrences starting 01/11/2023 until 01/11/2024 [facility] Work Phone: Comment on above: 1 Occurrences starting 01/11/2023 until 01/11/2024 End: 01-21-2024 Radiologic exam chest 2 views XR CHEST 2V FRONTAL/LAT Radiology Routine WELCH (dyspnea on exertion) 1 Occurrences starting 12/22/2022 until 01/21/2024 [facility] Work Phone: Comment on above: 1 Occurrences starting 12/22/2022 until 01/21/2024 End: 01-21-2024 SPIROMETRY - BASELINE AND POST DILATOR SPIROMETRY - BASELINE AND POST DILATOR PFT Routine WELCH (dyspnea on exertion) 1 Occurrences starting 12/22/2022 until 01/21/2024 [facility] Work Phone: Comment on above: 1 Occurrences starting 12/22/2022 until 01/21/2024 SPIROMETRY - BASELIN E AND POST DILATOR SPIROMETRY - BASELINE AND POST DILATOR PFT Routine WELCH (dyspnea on exertion) 12/28/2022 2:06 PM EDT [facility] Work Phone: SURGICAL PATHOLOGY [facility] Work Phone: Comment on above: Release Upon Ordering for 1 Occurrences starting 01/08/2022, 1 completed SURGICAL PATHOLOGY [facility] Work Phone: Comment on above: Release Upon Ordering for 1 Occurrences starting 03/31/2024, 1 completed Urine cannabinoid measurement [facility] Urine opiate measurement [facility] End: 12-30-2024 XR Chest PA and Lateral XR CHEST 2V FRONTAL/LAT Radiology Routine Rhonchi Acute bronchitis, unspecified organism 1 Occurrences starting 12/01/2023 until 12/30/2024 [facility] Work Phone: Comment on above: 1 Occurrences starting 12/01/2023 until 12/30/2024 End: 06-10-2025 XR Chest PA and Lateral XR CHEST 2V FRONTAL/LAT Radiology Routine Congestive heart failure, unspecified HF chronicity, unspecified heart failure type (HCC) Hospital discharge follow-up 1 Occurrences starting 05/11/2024 until 06/10/2025 [facility] Comment on above: 1 Occurrences starting 05/11/2024 until 06/10/2025 [facility] Immunizations Immunization Date Immunization Notes Care Provider Deric linares 03-01-2024 pneumococcal Conjuga te, unspecified formulation Michael Levyrison DO Work Phone: [facility] Work Phone: 03-01-2024 influenza, high dose seasonal, preservative-free Michael Puga DO Work Phone: [facility] 03-01-2024 pneumococcal conjuga te (PCV20) vaccine, 20 valent (PREVNAR 20) Michael Puga DO Work Phone: [facility] 03-01-2024 influenza virus vacc ine, unspecified formulation Key Portillo APRN.STEREOPTIC PROJECTION TOPOGRAPHER Work Phone: [facility] 04-05-2023 COVID-19 vaccine, ag e 12+ yr, season ([address]) Michael Puga DO Work Phone: [facility] Work Phone: 04-05-2023 influenza (HD-IIV4) vaccine, age 65+ yr, high dose, quadrivalent, PF (FLUZONE HIGH-DOSE) Michael Puga DO Work Phone: [facility] Work Phone: 04-05-2023 influenza virus vacc ine, unspecified formulation Sarah Merchant PT Work Phone: [facility] 02-16-2022 influenza, high-dose , quadrivalent vaccine (FLUZONE HIGH DOSE QUADRIVALENT) Michael Puga DO Work Phone: [facility] Work Phone: 02-16-2022 influenza virus vacc ine, unspecified formulation Xr Mob Work Phone: [facility] 03-13-2021 influenza, high-dose , quadrivalent vaccine (FLUZONE HIGH DOSE QUADRIVALENT) July [place] PA-C Work Phone: [facility] 01-11-2019 influenza, high dose seasonal, preservative-free July Jose PA-C Work Phone: [facility] Work Phone: 12-24-2018 tetanus toxoid, redu alisa diphtheria toxoid, and acellular pertussis vaccine, adsorbed Dr. Michael Puga Work Phone: [facility] 02-21-2018 influenza, high dose seasonal, preservative-free July [place] PA-C Work Phone: [facility] 03-15-2017 influenza, high dose seasonal, preservative-free July Jose PA-C Work Phone: [facility] Work Phone: 01-19-2017 influenza, injectabl e, quadrivalent, preservative free Dr. Michael Puga DO Work Phone: [facility] 01-19-2017 influenza, seasonal, injectable Dr. Michael Puga Work Phone: [facility] Work Phone: 05-06-2016 pneumococcal polysaccharide vaccine, 23 valent July Jose PA-C Work Phone: [facility] Work Phone: 03-09-2016 influenza, high dose seasonal, preservative-free July [place] PA-C Work Phone: [facility] Work Phone: 02-13-2016 influenza, high dose seasonal, preservative-free July Jose PA-C Work Phone: [facility] Work Phone: 02-01-[address] Michael Puga Work Phone: [facility] 03-11-2015 pneumococcal conjuga te vaccine, 13 valent July [place] PA-C Work Phone: [facility] 02-17-2015 influenza, high dose seasonal, preservative-free July Garcia PA-C Work Phone: [facility] 11-21-2014 zoster vaccine, live July ALVA-Marilee Work Phone: [facility] Work Phone: 04-12-2006 influenza virus vacc ine, unspecified formulation July ALVA-Marilee Work Phone: [facility] Work Phone: 04-12-2006 pneumococcal polysaccharide vaccine, 23 valent July ALVA-Marilee Work Phone: [facility] Work Phone: 09-01-2003 diphtheria and tetan us toxoids, adsorbed for pediatric use July ALVA-Marilee Work Phone: [facility] Work Phone: Payers Date Payer Category Payer Self-pay [id number] 2015 Private Health Insurance JENNIFER BARRY PPO [id number] 2015-Present [phone] [address] [place] [address] [facility] [id number] 2015 Private Health Insurance [id number] 2006 Medicare MEDICARE MEDICAR E A AND B [id number] 2006-Present [phone] [place] [address] Medicare [id number] 2006 Medicare [id number] 2006 Medicare [id number] 2005 Private Health Insurance [id number] Unknown Unknown [id number] 2.16.840.1.486757.3.579. 2.462 Unknown [id number] 2.16.840.1.758622.3.579. 2.462 Unknown [id number] 2.16.840.1.425817.3.579. 2.462 Unknown [id number] 2.16.840.1.138811.3.579. 2.462 Unknown [id number] 2.16.840.1.616400.3.579. 2.462 Unknown [id number] 2.16.840.1.079855.3.579. 2.462 Unknown [id number] 2..840.1.783238.3.579. 2.462 Unknown [id number] 2.16.840.1.871928.3.579. 2.462 Unknown [id number] 2.16.840.1.567868.3.579. 2.462 Unknown [id number] 2.16.840.1.043970.3.579. 2.462 Unknown [id number] 2.16.840.1.079742.3.579. 2.462 Unknown [id number] 2.16.840.1.111921.3.579. 2.462 Unknown [id number] 2.16.840.1.397072.3.579. 2.462 Unknown [id number] 2.16.840.1.682425.3.579. 2.462 Unknown [id number] 2.16.840.1.906387.3.579. 2.462 Unknown [id number] 2.16.840.1.455672.3.579. 2.462 Unknown [id number] 2.16.840.1.722520.3.579. 2.462 Unknown [id number] 2.16.840.1.312435.3.579. 2.462 Unknown [id number] 2.16.840.1.938647.3.579. 2.462 Unknown [id number] 2.16.840.1.592189.3.579. 2.462 Unknown [id number] 2.16.840.1.883038.3.579. 2.462 Unknown [id number] 2.16.840.1.215242.3.579. 2.462 Unknown [id number] 2.16.840.1.279800.3.579. 2.462 Unknown [id number] 2.16.840.1.935787.3.579. 2.462 Unknown [id number] 2.16.840.1.811921.3.579. 2.462 Unknown [id number] 2.16.840.1.993838.3.579. 2.462 Unknown [id number] 2.16840.1.236031.3.579. 2.462 Unknown [id number] 2.16.840.1.905959.3.579. 2.462 Unknown [id number] 2.16.840.1.215895.3.579. 2.462 Unknown [id number] 2.16840.1.106288.3.579. 2.462 Unknown [id number] 2.16.840.1.874888.3.579. 2.462 Unknown [id number] 2.16.840.1.008102.3.579. 2.462 Unknown [id number] 2.16.840.1.389771.3.579. 2.462 Unknown [id number] 2.16.840.1.408736.3.579. 2.462 Unknown [id number] 2.16.840.1.059812.3.579. 2.462 Unknown [id number] 2..840.1.253071.3.579. 2.462 Unknown [id number] 2.16.840.1.156452.3.579. 2.462 Unknown [id number] 2.16.840.1.159423.3.579. 2.462 Social History Date Type Detail Facility [facility] Start: 06-09-2021 Tobacco smokin g consumption unknown [facility] Start: 12-16-2021 End: 11-29-2024 Tobacco smoking status NHIS Never smoked tobacco [facility] Start: 06-13-2021 End: 08-17-2024 Alcohol intake Ex-drinker (finding) [facility] Start: 12-12-2018 History SDOH Food Worry 1 [facility] Start: 12-12-2018 History SDOH Transpo rt Med 2 [facility] Start: 1940 Sex Assigned At Not on file C [facility] Start: 08-23-2021 End: 02-16-2022 Exposure to SARS-CoV-2 (event) Not sure [facility] Start: 05-06-2017 None [facility] Start: 12-24-2018 With Family [facility] Start: 1940 Sex Assigned At Female W [facility] Start: 12-16-2021 Tobacco use and exposure Smokeless tobacco non-user [facility] Work Phone: Start: 12-22-2022 End: 01-26-2024 History of Social function [facility] Start: 12-22-2022 End: 01-26-2024 Tobacco use panel [facility] Adult Depression Screening Assessment 0 [facility] (I/We) worried wheth er (my/our) food would run out before (I/we) got money to buy more. Never true [facility] Start: 07-14-2024 End: 07-20-2024 Sex Female (finding) [facility] Medical Equipment Procedure Code Equipment Code Equipment Origin al Text Equipment Identifier Dates ([id number]) Dual-chamber implantable pacemaker, rate-responsive [id number] FDA Start: 06-09-2021 Use with blood glucose test 2 times daily, Insulin Dep? No [id number] Start: 08-30-2024 Use with blood glucose test 2 times daily. Insulin Dep? No [id number] Start: 08-30-2024 PACEMAKER LEAD FDA Start: 01-29-2011 PACEMAKER LEAD FDA Start: 01-29-2011 Goals Date Patient Goal Desired Activity /State Personal health goal Functional Status Date Assessment Result Facility 12-03-2024 Functional status Ambulates;Up a d jane;Chair [facility] Work Phone: 05-02-2024 Functional status Ambulates;Chair [facility] Work Phone: 11-28-2013 Are you deaf, or do you have serious difficulty hearing No 11/28/2013 4:55 PM EDT Rain 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), QUALITY ENGINEER MEDICAL DEVICE No [facility] 11-28-2013 Are you blind, or do you have serious difficulty seeing, even when wearing glasses No 11/28/2013 4:55 PM EDT Rain 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), QUALITY ENGINEER MEDICAL DEVICE No [facility] 11-28-2013 Do you have serious difficulty walking or climbing stairs No 11/28/2013 4:55 PM EDT Rain 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), QUALITY ENGINEER MEDICAL DEVICE No [facility] 11-28-2013 Do you have difficul ty dressing or bathing No 11/28/2013 4:55 PM EDT Rain 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), QUALITY ENGINEER MEDICAL DEVICE No [facility] 11-28-2013 Because of a physica l, mental, or emotional condition, do you have difficulty doing errands alone such as visiting a physician's office or shopping No 11/28/2013 4:55 PM EDT Rain 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), QUALITY ENGINEER MEDICAL DEVICE No [facility] Mental Status Date Assessment Result Facility 12-03-2024 Cognitive function Voice/Name [facility] Work Phone: 11-29-2024 Cognitive function Level Of Cons ciousness Awake;Alert;Appropriate;Fol lows Commands [facility] Work Phone: 05-02-2024 Cognitive function Voice/Name [facility] Work Phone: 11-28-2013 Because of a physica l, mental, or emotional condition, do you have serious difficulty concentrating, remembering, or making decisions No 11/28/2013 4:55 PM EDT Rain 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), QUALITY ENGINEER MEDICAL DEVICE No [facility] Clinical Notes 10-17-2020 to 12-03-2024 Note Date & Type Note Facility 12-03-2024 Discharge summary [facility] 12-02-2024 Progress note Note Date/Time December 02, 2024 4:17pm [facility] Medical Records Department [address] [place] [address] Progress Note - Hospitalist 12/02/24 1614 MR#: [id number] Acct: [id number] Name: MICHAEL MEIER Rep #:[id number] : 1940 84 From: Waleska Phillips MD PCP: Dr. Michael Puga, DO Status:AD M [facility] Location: [place] [address] Reason for Visit Chief Complaint: Right Upper and Lower Extremity Tremors. Subjective Subjective Feeling little bit better today, does still have tremors when she gets up to walk however if she stands still with her walker locked and decreased to the point where she was able to get around slowly with walker with assistance. Denies any new or acute complaints Objective Data Objective Data Vital Signs: Vital Signs Temp Pulse Resp BP Pulse Ox O2 Del Method O2 Flow Rate 97.9 F 58 L 14 164/60 H 95 Room Air 2 12/02/24 14:11 12/02/24 14:13 12/02/24 14:11 12/02/24 14:11 12/02/24 14:11 12/02/24 14:11 12/02/24 07:36 Oxygen Flow Rate (L/min) 2 Oxygen Delivery Method Room Air Weight: 108.5 kg Body Mass Index (BMI) 39.8 Intake & Output: Intake and Output for Last 24 Hours 11/30/24 12/01/24 12/02/24 23:59 23:59 23:59 Intake Total 840 / 840 600 / 600 150 / 150 Output Total 1250 / 1350 700 / 1200 800 / 800 Balance -410 / -510 -100 / -600 -650 / -650 Lab / Micro Data 12/02/24 07:14 12/02/24 07:14 Labs: Laboratory Results - last 24 hr 12/02/24 07:14: WBC 9.7, RBC 3.48 L, Hgb 10.4 L, Hct 31.5 L, MCV 90.5, MCH 29.9,MCHC 33.0, RDW Std Deviation 49.0 H, RDW Coeff of Chandu 14.7 H, Plt Count 193, MPV10.3, Immature Gran % (Auto) 0.700, Neut % (Auto) 72.7 H, Lymph % (Auto) 11.2 L,Addison % (Auto) 11.7 H, Eos % (Auto) 3.1, Baso % (Auto) 0.6, Absolute Neuts (auto)7.1, Absolute Lymphs (auto) 1.09, Nucleated RBC % 0, Sodium 130 L, Potassium 4.7, Chloride 96 L, Carbon Dioxide 23.4, Anion Gap 10, BUN 31 H, Creatinine 1.01, Estim Creat Clear Calc 51.70, Est GFR (MDRD) Non-Af 55 L, BUN/Creatinine Ratio 30.6 H, Glucose 106 H, Calcium 8.7 Physical Exam Narrative General: Alert, oriented, no apparent distress HEENT: Atraumatic, normocephalic Eyes: Anicteric, normal conjunctiva, extraocular movements grossly intact Neck: Supple Respiratory: Clear to auscultation bilaterally, normal respiratory effort Cardiovascular: Regular rate and rhythm GI: Soft, nontender, nondistended Extremities: No edema Musculoskeletal: Moving all extremities Neuro: No new overt focal neurological deficits Skin: No rashes appreciated Psych: Cooperative Assessment & Plan Assessment/Plan (1) Tremor: (2) Hypertensive urgency: PLAN: Plan # Leg tremors -12/01: CT with no acute findings, feels jitters in her legs when she stands up. Did have patient evaluated by neurology given her continued complaints, unable to obtain MRI due to pacemaker and no need to transfer for MRI and no acute further workup given no focal findings on exam. Physical therapy was recommended and neuro signed off at this time. Did discuss patient's case and plan with neurologist. -12/02: Was able to get around a little bit better with therapy however still shaky and unsteady and requiring assistance, not back to baseline. Plan is for inpatient rehab 12/30/2024 #Hypertensive urgency/paroxysmal A-fib/essential HTN/HLD/history of sick sinus syndrome status post pacemaker/history of TIA/pulmonary hypertension ? Blood pressures were elevated to 229/78, seems a little bit incongruous to have such a wide pulse pressure not sure that the 229 is accurate especially since the rest of her blood pressures are stable and there has not been any significant adjustments to her blood pressure medications, I did make her hydralazine 50 mg 3 times daily instead of twice daily but otherwise her home medications were continued as it is ? Will not repeat carotids as she had them done in July and there were less than 50% stenosis bilaterally ? She could not obtain an MRI secondary to her pacemaker so repeated CT scan this afternoon which was negative for stroke ? PT/OT for evaluation of possible placement ? Continue with statin and aspirin ? The tremors do not appear consistent with stroke, will monitor -12/01: Blood pressure improved with increase in hydralazine, continue current management -12/02: Blood pressure variable, this a.m. was 116/60 with some variation throughout the day, overall blood pressure reasonable in the acute setting, willneed to be followed for any possible future adjustments on an outpatient basis Chronic medical problems and/or problems not being actively addressed during today's encounter: # Hypothyroidism ? Stable ? Continue with Synthroid # Neuropathy ? Stable ? Continue with gabapentin # GERD with history of GI bleed ? Stable ? Continue PPI and Carafate # Anxiety/depression ? Stable ? Continue with her home medications DVT: SCDs Charges/Coding Visit Charges Inpatient E&M: 79874 Subs Hosp L1 12/02/24 1617 <Electronically signed by Waleska Phillips MD> Cosigner Signature (if applicable): CC: ~ Signed [facility] Work Phone: 1(250) 850-413408-02-2025 Progress note [facility] Medical Records Department [address] [place] [address] Progress Note - Hospitalist 12/02/24 1614 MR#: [id number] Acct: [id number] Name: MICHAEL MEIER Rep #:[id number] 4 : 1940 84 From: Waleska Phillips MD PCP: Dr. Michael Puga, DO Status:AD M [facility] Location: [place] [address] Reason for Visit Chief Complaint: Right Upper and Lower Extremity Tremors. Subjective Subjective Feeling little bit better today, does still have tremors when she gets up to walk however if she stands still with her walker locked and decreased to the point where she was able to get around slowlywith walker with assistance. Denies any new or acute complaints Objective Data Objective Data Vital Signs: Vital Signs Temp Pulse Resp BP Pulse Ox O2 Del Method O2 Flow Rate 97.9 F 58 L 14 164/60 H 95 Room Air 2 12/02/24 14:11 12/02/24 14:13 12/02/24 14:11 12/02/24 14:11 12/02/24 14:11 12/02/24 14:11 12/02/24 07:36 Oxygen Flow Rate (L/min) 2 Oxygen Delivery Method Room Air Weight: 108.5 kg Body Mass Index (BMI) 39.8 Intake & Output: Intake and Output for Last 24 Hours 11/30/24 12/01/24 12/02/24 23:59 23:59 23:59 Intake Total 840 / 840 600 / 600 150 / 150 Output Total 1250 / 1350 700 / 1200 800 / 800 Balance -410 / -510 -100 / -600 -650 / -650 Lab / Micro Data 12/02/24 07:14 12/02/24 07:14 Labs: Laboratory Results - last 24 hr 12/02/24 07:14: WBC 9.7, RBC 3.48 L, Hgb 10.4 L, Hct 31.5 L, MCV 90.5, MCH 29.9,MCHC 33.0, RDW Std Deviation 49.0 H, RDW Coeff of Chandu 14.7 H, Plt Count 193, MPV10.3, Immature Gran % (Auto) 0.700, Neut % (Auto) 72.7 H, Lymph % (Auto) 11.2 L,Addison % (Auto) 11.7 H, Eos % (Auto) 3.1, Baso % (Auto) 0.6, Absolute Neuts (auto)7.1, Absolute Lymphs (auto) 1.09, Nucleated RBC % 0, Sodium 130 L, Potassium 4.7, Chloride 96 L, Carbon Dioxide 23.4, Anion Gap 10, BUN 31 H, Creatinine 1.01, Estim Creat Clear Calc 51.70, Est GFR (MDRD) Non-Af 55 L, BUN/Creatinine Ratio 30.6 H, Glucose 106 H, Calcium 8.7 Physical Exam Narrative General: Alert, oriented, no apparent distress HEENT: Atraumatic, normocephalic Eyes: Anicteric, normal conjunctiva, extraocular movements grossly intact Neck: Supple Respiratory: Clear to auscultation bilaterally, normal respiratory effort Cardiovascular: Regular rate and rhythm GI: Soft, nontender, nondistended Extremities: No edema Musculoskeletal: Moving all extremities Neuro: No new overt focal neurological deficits Skin: No rashes appreciated Psych: Cooperative Assessment & Plan Assessment/Plan (1) Tremor: (2) Hypertensive urgency: PLAN: Plan # Leg tremors -12/01: CT with no acute findings, feels jitters in her legs when she stands up. Did have patient evaluated by neurology given her continued complaints, unable to obtain MRI due to pacemaker and no need to transfer for MRI and no acute further workup given no focal findings on exam. Physical therapy was recommended and neuro signed off at this time. Did discuss patient's case and plan with neurologist. -12/02: Was able to get around a little bit better with therapy however still shaky and unsteady and requiring assistance, not back to baseline. Plan is for inpatient rehab 12/30/2024 #Hypertensive urgency/paroxysmal A-fib/essential HTN/HLD/history of sick sinus syndrome status postpacemaker/history of TIA/pulmonary hypertension ? Blood pressures were elevated to 229/78, seems a little bit incongruous to have such a wide pulsepressure not sure that the 229 is accurate especially since the rest of her blood pressures are stable and there has not been any significant adjustments to her blood pressure medications, I did makeher hydralazine 50 mg 3 times daily instead of twice daily but otherwise her home medications were continued as it is ? Will not repeat carotids as she had them done in July and there were less than 50% stenosis bilaterally ? She could not obtain an MRI secondary to her pacemaker so repeated CT scan this afternoon which was negative for stroke ? PT/OT for evaluation of possible placement ? Continue with statin and aspirin ? The tremors do not appear consistent with stroke, will monitor -12/01: Blood pressure improved with increase in hydralazine, continue current management -12/02: Blood pressure variable, this a.m. was 116/60 with some variation throughout the day, overallblood pressure reasonable in the acute setting, willneed to be followed for any possible future adjustments on an outpatient basis Chronic medical problems and/or problems not being actively addressed during today's encounter: # Hypothyroidism ? Stable ? Continue with Synthroid # Neuropathy ? Stable ? Continue with gabapentin # GERD with history of GI bleed ? Stable ? Continue PPI and Carafate # Anxiety/depression ? Stable ? Continue with her home medications DVT: SCDs Charges/Coding Visit Charges Inpatient E&M: 07027 Subs Hosp L1 12/02/24 1617 Cosigner Signature (if applicable): CC: ~ Signed [facility]08-01-2025 Progress note Author Waleska Phillips [facility] Note Date/Time December 01, 2024 5:5 7pm [facility] Medical Records Department [address] [place] [address] Progress Note - Hospitalist 12/01/24 1451 MR#: [id number] Acct: [id number] Name: HARDEEPMICHAEL Deras Rep #:[id number] 4 : 1940 84 From: Waleska Phillips MD PCP: Dr. Michael Puga, DO Status:AD M [facility] Location: [place] [address] Reason for Visit Chief Complaint: Right Upper and Lower Extremity Tremors. Subjective Subjective Patient reports continued tremors when walking and difficulty getting around, agreeable to placement, no new complaints since admission Objective Data Objective Data Vital Signs: Vital Signs Temp Pulse Resp BP Pulse Ox O2 Del Method O2 Flow Rate 97.7 F L 60 18 145/43 H 95 Room Air 2 12/01/24 08:55 12/01/24 13:48 12/01/24 08:55 12/01/24 13:48 12/01/24 08:55 12/01/24 14:10 12/01/24 04:15 Oxygen Flow Rate (L/min) 2 Oxygen Delivery Method Room Air Weight: 106.2 kg Body Mass Index (BMI) 38.9 Intake & Output: Intake and Output for Last 24 Hours 11/29/24 11/30/24 12/01/24 23:59 23:59 23:59 Intake Total 840 / 840 240 / 240 Output Total 1250 / 1350 700 / 700 Balance -410 / -510 -460 / -460 Lab / Micro Data 12/01/24 06:21 12/01/24 06:21 Labs: Laboratory Results - last 24 hr 12/01/24 06:21: WBC 8.9, RBC 3.51 L, Hgb 10.5 L, Hct 31.7 L, MCV 90.3, MCH 29.9,MCHC 33.1, RDW Std Deviation 48.8 H, RDW Coeff of Chandu 14.8 H, Plt Count 196, MPV10.1, Immature Gran % (Auto) 0.300, Neut % (Auto) 70.9 H, Lymph % (Auto) 13.0 L,Addison % (Auto) 12.3 H, Eos % (Auto) 2.9, Baso % (Auto) 0.6, Absolute Neuts (auto)6.3, Absolute Lymphs (auto) 1.16, Nucleated RBC % 0, Sodium 131 L, Potassium 4.7, Chloride 96 L, Carbon Dioxide 26.3, Anion Gap 9, BUN 33 H, Creatinine 1.23 H, Estim Creat Clear Calc 41.95 L, Est GFR (MDRD) Non-Af 44 L, BUN/Creatinine Ratio 26.4 H, Glucose 110 H, Calcium 8.4 Radiography Diagnostic Testing: Radiology Impression Echocardiogram 11/29/24 21:46 Interpretation Summary Normal LV size. Left ventricular systolic function is normal. Moderate concentric left ventricular hypertrophy. The left ventricular ejection fraction is 60 %. Pulmonary artery systolic pressure is 65 mmHg. Moderate pulmonary hypertension. Ordering Physician: Tacho Davis Referring Physician: Michael Puga, Performed By: Elzbieta Hampton and Student Physical Exam Narrative General: Alert, oriented, no apparent distress HEENT: Atraumatic, normocephalic Eyes: Anicteric, normal conjunctiva, extraocular movements intact, pupils equal Neck: Supple Respiratory: Clear to auscultation bilaterally, normal respiratory effort Cardiovascular: Regular rate and rhythm GI: Soft, nontender, nondistended Extremities: No edema Musculoskeletal: Strength 5 out of 5 in right upper extremity, 5 out of 5 left upper extremity, 5 - out of 5 right lower extremity, 5 - out of 5 left lower extremity Neuro: No overt focal neurological deficits, cranial nerves II through XII intact, [id number] with some difficulty with left hand but not on right Skin: No rashes appreciated Psych: Cooperative Assessment & Plan Assessment/Plan (1) Tremor: (2) Hypertensive urgency: PLAN: Plan # Leg tremors -12/01: CT with no acute findings, feels jitters in her legs when she stands up. Did have patient evaluated by neurology given her continued complaints, unable to obtain MRI due to pacemaker and no need to transfer for MRI and no acute further workup given no focal findings on exam. Physical therapy was recommended and neuro signed off at this time. Did discuss patient's case and plan with neurologist. #Hypertensive urgency/paroxysmal A-fib/essential HTN/HLD/history of sick sinus syndrome status post pacemaker/history of TIA/pulmonary hypertension ? Blood pressures were elevated to 229/78, seems a little bit incongruous to have such a wide pulse pressure not sure that the 229 is accurate especially since the rest of her blood pressures are stable and there has not been any significant adjustments to her blood pressure medications, I did make her hydralazine 50 mg 3 times daily instead of twice daily but otherwise her home medications were continued as it is ? Will not repeat carotids as she had them done in July and there were less than 50% stenosis bilaterally ? She could not obtain an MRI secondary to her pacemaker so repeated CT scan this afternoon which was negative for stroke ? PT/OT for evaluation of possible placement ? Continue with statin and aspirin ? The tremors do not appear consistent with stroke, will monitor -12/01: Blood pressure improved with increase in hydralazine, continue current management Chronic medical problems and/or problems not being actively addressed during today's encounter: # Hypothyroidism ? Stable ? Continue with Synthroid # Neuropathy ? Stable ? Continue with gabapentin # GERD with history of GI bleed ? Stable ? Continue PPI and Carafate # Anxiety/depression ? Stable ? Continue with her home medications DVT: SCDs Time spent in the patient's overall evaluation,decision-making process, review of diagnostic data, adjustment of management, discussion with other providers, nursing nursing and ancillary staff involved in patient's care documentation, 43Minutes Charges/Coding Visit Charges Inpatient E&M: 27387 Subs Hosp L2 12/01/24 1757 <Electronically signed by Waleska Phillips MD> Cosigner Signature (if applicable): CC: ~ Signed [facility] Work Phone: 1(745) 199-915108-01-2025 Progress note [facility] Medical Records Department [address] [place] [address] Progress Note - Hospitalist 12/01/24 1451 MR#: [id number] Acct: [id number] Name: MICHAEL MEIER Rep #:[id number] : 1940 84 From: Waleska Phillips MD PCP: Dr. Michael Puga, DO Status:AD M [facility] Location: [place] [address] Reason for Visit Chief Complaint: Right Upper and Lower Extremity Tremors. Subjective Subjective Patient reports continued tremors when walking and difficulty getting around, agreeable to placement, no new complaints since admission Objective Data Objective Data Vital Signs: Vital Signs Temp Pulse Resp BP Pulse Ox O2 Del Method O2 Flow Rate 97.7 F L 60 18 145/43 H 95 Room Air 2 12/01/24 08:55 12/01/24 13:48 12/01/24 08:55 12/01/24 13:48 12/01/24 08:55 12/01/24 14:10 12/01/24 04:15 Oxygen Flow Rate (L/min) 2 Oxygen Delivery Method Room Air Weight: 106.2 kg Body Mass Index (BMI) 38.9 Intake & Output: Intake and Output for Last 24 Hours 11/29/24 11/30/24 12/01/24 23:59 23:59 23:59 Intake Total 840 / 840 240 / 240 Output Total 1250 / 1350 700 / 700 Balance -410 / -510 -460 / -460 Lab / Micro Data 12/01/24 06:21 12/01/24 06:21 Labs: Laboratory Results - last 24 hr 12/01/24 06:21: WBC 8.9, RBC 3.51 L, Hgb 10.5 L, Hct 31.7 L, MCV 90.3, MCH 29.9,MCHC 33.1, RDW Std Deviation 48.8 H, RDW Coeff of Chandu 14.8 H, Plt Count 196, MPV10.1, Immature Gran % (Auto) 0.300, Neut % (Auto) 70.9 H, Lymph % (Auto) 13.0 L,Addison % (Auto) 12.3 H, Eos % (Auto) 2.9, Baso % (Auto) 0.6, Absolute Neuts (auto)6.3, Absolute Lymphs (auto) 1.16, Nucleated RBC % 0, Sodium 131 L, Potassium 4.7, Chloride 96 L, Carbon Dioxide 26.3, Anion Gap 9, BUN 33 H, Creatinine 1.23 H, Estim Creat Clear Calc 41.95 L, Est GFR (MDRD) Non-Af 44 L, BUN/Creatinine Ratio 26.4 H, Glucose 110 H, Calcium 8.4 Radiography Diagnostic Testing: Radiology Impression Echocardiogram 11/29/24 21:46 Interpretation Summary Normal LV size. Left ventricular systolic function is normal. Moderate concentric left ventricular hypertrophy. The left ventricular ejection fraction is 60 %. Pulmonary artery systolic pressure is 65 mmHg. Moderate pulmonary hypertension. Ordering Physician: Tacho Davis Referring Physician: Michael Puga, Performed By: Elzbieta Hampton and Student Physical Exam Narrative General: Alert, oriented, no apparent distress HEENT: Atraumatic, normocephalic Eyes: Anicteric, normal conjunctiva, extraocular movements intact, pupils equal Neck: Supple Respiratory: Clear to auscultation bilaterally, normal respiratory effort Cardiovascular: Regular rate and rhythm GI: Soft, nontender, nondistended Extremities: No edema Musculoskeletal: Strength 5 out of 5 in right upper extremity, 5 out of 5 left upper extremity, 5 -out of 5 right lower extremity, 5 - out of 5 left lower extremity Neuro: No overt focal neurological deficits, cranial nerves II through XII intact, [id number] with some difficulty with left hand but not on right Skin: No rashes appreciated Psych: Cooperative Assessment & Plan Assessment/Plan (1) Tremor: (2) Hypertensive urgency: PLAN: Plan # Leg tremors -12/01: CT with no acute findings, feels jitters in her legs when she stands up. Did have patient evaluated by neurology given her continued complaints, unable to obtain MRI due to pacemaker and no need to transfer for MRI and no acute further workup given no focal findings on exam. Physical therapy was recommended and neuro signed off at this time. Did discuss patient's case and plan with neurologist. #Hypertensive urgency/paroxysmal A-fib/essential HTN/HLD/history of sick sinus syndrome status postpacemaker/history of TIA/pulmonary hypertension ? Blood pressures were elevated to 229/78, seems a little bit incongruous to have such a wide pulsepressure not sure that the 229 is accurate especially since the rest of her blood pressures are stable and there has not been any significant adjustments to her blood pressure medications, I did makeher hydralazine 50 mg 3 times daily instead of twice daily but otherwise her home medications were continued as it is ? Will not repeat carotids as she had them done in July and there were less than 50% stenosis bilaterally ? She could not obtain an MRI secondary to her pacemaker so repeated CT scan this afternoon which was negative for stroke ? PT/OT for evaluation of possible placement ? Continue with statin and aspirin ? The tremors do not appear consistent with stroke, will monitor -12/01: Blood pressure improved with increase in hydralazine, continue current management Chronic medical problems and/or problems not being actively addressed during today's encounter: # Hypothyroidism ? Stable ? Continue with Synthroid # Neuropathy ? Stable ? Continue with gabapentin # GERD with history of GI bleed ? Stable ? Continue PPI and Carafate # Anxiety/depression ? Stable ? Continue with her home medications DVT: SCDs Time spent in the patient's overall evaluation,decision-making process, review of diagnostic data, adjustment of management, discussion with other providers, nursing nursing and ancillary staff involved in patient's care documentation, 43Minutes Charges/Coding Visit Charges Inpatient E&M: 83624 Subs Hosp L2 12/01/24 9408 Cosigner Signature (if applicable): CC: ~ Signed [facility]08-01-2025 Consult note Author Kyara Ponce [facility] Note Date/Time December 01, 2024 12: 49pm [facility] Medical Records Department [address] [place] [address] Consultation - Neurology 12/01/24 1243 MR#: [id number] Acct: [id number] Name: MICHAEL MEIER Rep #:[id number] : 1940 84 From: Kyara Ponce MD PCP: Dr. Michael Puga, DO Status:AD M [facility] Location: [place] [address] Assessment and Plan: Neuro Assessment/Plan 84 F with a past medical history of essential hypertension, hyperlipidemia, hypothyroidism paroxysmal atrial fibrillation SSS; s/p PPM (2021), morbid obesity, JOSE, pulmonary hypertension, neuropathy; depression with anxiety OA whopresented to [facility] ER complaining of Right upper and lower extremity jitterness and difficulty walking. Her exam is reassuring with no focal findings. Her CT head did not show acute findings. There is no ataxia, or dysmetria on exam. When she stands up she jitters all over She is unable to obtain MRI due to pacemaker, no need for transfer for MRI, given her symptoms are not consistent with stroke. She has no focal findings on exam. She is resting comfortably in chair during the interview and enjoying lunch. She stands up and get jittery for few seconds then can stand still very comfortably, then we she is asked to take a step forwards she starts jittering again and falls back to her chair. Recommend physical therapy. We will sign off. Please call with questions. I personally attended this patient and spent a total time of 45 minutes evaluating this patient including clinical assessment, review of chart, medical history imaging, and determining appropriate treatment and workup. HPI Consult Data Date of Consult: 12/01/24 HPI Narrative HPI Narrative: 84 F with a past medical history of essential hypertension, hyperlipidemia, hypothyroidism paroxysmal atrial fibrillation SSS; s/p PPM (2021), morbid obesity, JOSE, pulmonary hypertension, neuropathy; depression with anxiety OA whopresented to [facility] ER complaining of Right upper and lower extremity jitterness and difficulty walking. Patient reports on Wednesday, she was at a diabetic class, when she stood up rightside was shaking arm and leg not as bad as the right foot, the right foot was her biggest problem. When she tried to walk, her legs and knees gave up. She fell backwards. Her friend took you home, she had this problem through out untilshe got to her house. Then that evening, she felt better, and she went to bed and when she woke up on Wednesday it has returned, and it was harder for her to move. She ?presented to the hospital, blood pressure was 229/78. She uses a cane and a rollator at baseline. She has right leg tingling/numbness at baseline. She has a balance problem at baseline and she usually has someone assist her on the left side. She can?t walk for long because her legs gets tired. She reports she has a R foot drop at baseline. She is currently feeling better but the shaking is still there when she stands up. PHYSICAL EXAM: Exam performed with help of the nurse/HARJIT present with patient on Tele site NEURO: Patient is resting comfortably in chair, enjoying lunch during the interview. AAOx3, follows commands, no aphasia/dysarthria. EOMI, no gaze preference/nystagmus. Face symmetric, Intact facial sensation. Head turning intact. Sensation: intact to light touch all over, including face, arms and legs, feels equal on both side. Motor: All extremities antigravity Hip flexion 5/5 bilaterally, knee flexion and extension. Foot dorsal and plantarflexion 5/5 bilaterally (Though she reports R foot drop at baseline) Coordination: FTN intact bilaterally Upon standing up she gets jittery all over in her place for few seconds, then she stands still. Then when she takes a step forwards she starts jittering againand she threw herself back to her chair. [facility] Medical History [facility] current use of amiodarone Right carotid bruit Pulmonary hypertension Obesity TIA (transient ischemic attack) (12/2018) GI bleed (2018) Essential (primary) hypertension Osteoarthritis Anxiety Daytime somnolence Dysmetabolic syndrome X Allergic rhinitis Malignant melanoma of skin of trunk, except scrotum Hyperlipidemia FH: sudden cardiac (SCD) Depression Paroxysmal atrial fibrillation Sick sinus syndrome Carotid artery disease Home Medications ?Medication ?Instructions ?Recorded ?Last Taken ?Type lorazepam 0.5 mg tablet 0.5 mg PO BID PRN PRN Anxiet y 05/13/16 Unknown History aspirin 81 mg tablet,delayed 81 mg PO QDAY heart healt h #90 tabs 12/27/18 Unknown Rx release (Adult Low Dose Aspirin) coenzyme Q10 100 mg capsule (Co 100 mg PO DAILY supple ment 01/23/20 Unknown History Q-10) rosuvastatin 10 mg tablet 10 mg PO DAILY cholesterol 0 01/23/20 Unknown History sucralfate 100 mg/mL oral 10 ml PO TID PRN digestion 0 11/25/21 Unknown History suspension cyclosporine 0.05 % eye drops in a 1 drp EACH EYE Q12H eye health 09/27/23 Unknown History dropperette (Restasis) albuterol sulfate 90 mcg/actuation 2 puff inhalation Q 6H PRN 10/02/23 Unknown Rx aerosol inhaler (ProAir HFA) shortness of breath or wh eezing #6.7 grams levothyroxine 50 mcg capsule 50 mcg PO QDAY 01/25/24 U nknown History spironolactone 25 mg tablet 25 mg PO DAILY #30 tabs Unknown Rx fluticasone propionate 110 1 inh inhalation Q12H 04/30 Unknown History mcg/actuation HFA aerosol inhaler meloxicam 15 mg tablet 15 mg PO DAILY 04/30/24 Unkn own History vitamin B complex (Balanced B-50 1 tab PO DAILY Unknown History tablet) diltiazem HCl 240 mg 240 mg PO QHS heart #90 caps 05/15/24 Unknown Rx capsule,extended release 24 hr hydralazine 50 mg tablet 50 mg PO BID #180 tabs 06/01 Unknown Rx furosemide 20 mg tablet 20 mg PO QDAY 07/06/24 Unkno wn History amiodarone 200 mg tablet 200 mg PO DAILY heart #90 ta bs 07/20/24 Unknown Rx losartan 100 mg tablet 100 mg PO DAILY blood pressu re #90 09/11/24 Unknown Rx tabs azelastine 0.05 % eye drops 1 drp ophthalmic (eye) BID PRN 11/02/24 Unknown History omeprazole 20 mg capsule,delayed 20 mg PO QDAY 5 Unknown History release paroxetine HCl 40 mg tablet 40 mg PO QDAY 11/02/24 Unk nown History gabapentin 100 mg capsule 100 mg PO DAILY neuropathy 0 11/29/24 Unknown History prednisone 10 mg tablet 10 mg PO DAILY 11/29/24 Unkn own History Allergy/AdvReac Type Severity Reaction Status Date / Time ciprofloxacin (From Cipro) Allergy Rash Verified 11/29/24 16:08 Penicillins (PCN) Allergy Hives Verified 11/29/24 16:08 Sulfa (Sulfonamide Allergy Hives Verified 11/29/24 16:08 Antibiotics) Beta-Blockers AdvReac Other Verified 11/29/24 16:08 (Beta-Adrenergic Bloc hydrocodone (From Vicodin) AdvReac Other Verified 11/29/24 16:08 lisinopril AdvReac cough Verified 11/29/24 16:08 meperidine (From Demerol) AdvReac Vomiting Verified 11/29/24 16:08 morphine AdvReac Other Verified 11/29/24 16:08 pravastatin AdvReac Other Verified 11/29/24 16:08 Family History Grandfather Myocardial infarction Sudden cardiac Father Myocardial infarction CAD (coronary artery disease) CHF (congestive heart failure) Mother Myocardial infarction CAD (coronary artery disease) A-fib Brother A-fib CHF (congestive heart failure) Brother Cancer Son Diabetes Son Hypertension Surgical History History of permanent cardiac pacemaker placement (06/09/21) History of esophagogastroduodenoscopy (EGD) (09/07/18) History of left heart catheterization (LHC) (05/2011) 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) History of total right knee replacement (TKR) (~08/2011) History of right hip replacement (~2003) History of cholecystectomy History of total left knee replacement (TKR) Social History housing: house Smoking Status: Never smoker alcohol intake: never substance use type: does not use caffeine: Yes what type of physical activity do you participate in: none seatbelt use: always Vital Signs Vital Signs Vital Signs: 11/30/24 14:27 11/30/24 14:50 11/30/24 14:50 Temperature 98.1 F Temperature Source Temporal Pulse Rate 60 60 Pulse Strength Respiratory Rate 18 Respiratory Effort Normal Non-Labored Respiratory Depth Normal Respiratory Pattern Normal Blood Pressure 139/52 H 139/52 H Blood Pressure Mean 81 Blood Pressure Source Monitor Blood Pressure Position Semi-Fowlers Blood Pressure Location Right Arm Pulse Ox 96 Oxygen Delivery Method Nasal Cannula Room Air Oxygen Flow Rate (L/min) 2 11/30/24 19:48 11/30/24 22:15 11/30/24 22:18 Temperature 97.8 F Temperature Source Oral Pulse Rate 60 60 Pulse Strength Respiratory Rate 16 Respiratory Effort Normal Non-Labored Respiratory Depth Normal Respiratory Pattern Normal Blood Pressure 137/51 H 137/51 H Blood Pressure Mean 79 Blood Pressure Source Monitor Blood Pressure Position Semi-Fowlers Blood Pressure Location Right Arm Pulse Ox 95 Oxygen Delivery Method Room Air Room Air Oxygen Flow Rate (L/min) 12/01/24 04:10 12/01/24 04:15 12/01/24 06:10 Temperature 96.9 F L 97.6 F L Temperature Source Temporal Temporal Pulse Rate 63 61 Pulse Strength Respiratory Rate 16 16 Respiratory Effort Normal Non-Labored Respiratory Depth Normal Respiratory Pattern Normal Blood Pressure 131/51 H 134/61 H Blood Pressure Mean 77 85 Blood Pressure Source Monitor Monitor Blood Pressure Position Semi-Fowlers Semi-Fowlers Blood Pressure Location Right Arm Right Arm Pulse Ox 99 97 Oxygen Delivery Method Nasal Cannula Nasal Cannula Room Air Oxygen Flow Rate (L/min) 2 2 12/01/24 06:11 12/01/24 06:38 12/01/24 06:38 Temperature Temperature Source Pulse Rate 61 64 Pulse Strength Respiratory Rate 16 Respiratory Effort Respiratory Depth Respiratory Pattern Normal Blood Pressure 134/61 H Blood Pressure Mean Blood Pressure Source Blood Pressure Position Blood Pressure Location Pulse Ox 94 Oxygen Delivery Method Room Air Oxygen Flow Rate (L/min) 12/01/24 08:14 12/01/24 08:43 12/01/24 08:55 Temperature 97.7 F L Temperature Source Temporal Pulse Rate 60 Pulse Strength Normal (2+) Respiratory Rate 18 Respiratory Effort Normal Non-Labored Respiratory Depth Normal Respiratory Pattern Normal Blood Pressure 144/51 H Blood Pressure Mean 82 Blood Pressure Source Monitor Blood Pressure Position Semi-Fowlers Blood Pressure Location Right Arm Pulse Ox 95 Oxygen Delivery Method Room Air Room Air Oxygen Flow Rate (L/min) Weight Weight: 106.2 kg Body Mass Index (BMI) 38.9 EEG Results Procedure Details EEG Procedure Details: MICHAEL MEIER is a 84 year old F with a past medical history of , who presents for evaluation of Electroencephalogram on DATE at TIME Lab / Micro Data 12/01/24 06:21 12/01/24 06:21 Labs: Laboratory Results - last 24 hr 11/30/24 13:20: Urine Opiates Screen NEGATIVE, U Buprenorphine Qual NEGATIVE, UrOxycodone Screen NEGATIVE, Urine Methadone Screen NEGATIVE, Urine Fentanyl Screen NEGATIVE, Ur Barbiturates Screen NEGATIVE, Ur Phencyclidine Scrn NEGATIVE, Ur Amphetamines Screen NEGATIVE, U Benzodiazepines Scrn PRESUMPTIVE POSITIVE, Urine Cocaine Screen NEGATIVE, U Cannabinoids Screen NEGATIVE 12/01/24 06:21: WBC 8.9, RBC 3.51 L, Hgb 10.5 L, Hct 31.7 L, MCV 90.3, MCH 29.9,MCHC 33.1, RDW Std Deviation 48.8 H, RDW Coeff of Chandu 14.8 H, Plt Count 196, MPV10.1, Immature Gran % (Auto) 0.300, Neut % (Auto) 70.9 H, Lymph % (Auto) 13.0 L,Addison % (Auto) 12.3 H, Eos % (Auto) 2.9, Baso % (Auto) 0.6, Absolute Neuts (auto)6.3, Absolute Lymphs (auto) 1.16, Nucleated RBC % 0, Sodium 131 L, Potassium 4.7, Chloride 96 L, Carbon Dioxide 26.3, Anion Gap 9, BUN 33 H, Creatinine 1.23 H, Estim Creat Clear Calc 41.95 L, Est GFR (MDRD) Non-Af 44 L, BUN/Creatinine Ratio 26.4 H, Glucose 110 H, Calcium 8.4 Imaging Radiology Impression Echocardiogram 11/29/24 21:46 Interpretation Summary Normal LV size. Left ventricular systolic function is normal. Moderate concentric left ventricular hypertrophy. The left ventricular ejection fraction is 60 %. Pulmonary artery systolic pressure is 65 mmHg. Moderate pulmonary hypertension. Ordering Physician: Tacho Davis Referring Physician: Michael Puga, Performed By: Becky Hamptonh and Student Brain CT 11/30/24 14:20 IMPRESSION: No acute intracranial abnormality. Reading Location: [facility] Active Medications Active Medications Active Medications: Current Medications Generic Name Dose Route Start Last Admin Trade Name Freq PRN Reason Stop Dose Admin Acetaminophen 650 mg 11/29/24 22:56 11/30/24 08:00 Acetaminophen 325 Mg Tablet PO 650 mg Q6H PRN PRN Administration Pain 1-10 Or Fever>100.7 Al Hydroxide/Mg Hydroxide 30 ml 11/29/24 22:56 Mag Hydrox/Al Hydrox/Simeth 30 Ml Udc PO Q6H PRN PRN Gastric Burning Albuterol Sulfate 2.5 mg 11/29/24 22:56 Albuterol 2.5 Mg/3 Ml Vial.Neb. INHALATION Q4H PRN PRN shortness of breath/wheezing Amiodarone HCl 200 mg 11/30/24 08:00 12/01/24 08:56 Amiodarone 200 Mg Tablet PO 200 mg DAILYCM TERESSA Administration Aspirin 81 mg 11/30/24 08:00 12/01/24 08:56 Aspirin E.C. 81 Mg Tablet PO 81 mg BREAKFAST TERESSA Administration Atorvastatin Calcium 20 mg 11/30/24 22:00 11/30/24 22:18 Atorvastatin Calcium 20 Mg Tablet PO 20 mg QHS TERESSA Administration Azelastine HCl 1 ml 11/29/24 22:56 Azelastine Hcl 6 Ml Drops OPHTHALMIC BID PRN PRN ITCHING EYES Budesonide 0.5 mg 11/30/24 06:00 12/01/24 06:37 Budesonide Respules 0.5 Mg/2 Ml Ampul.Neb. INHALATION 0.5 mg Q12H.RT TERESSA Administration Diltiazem HCl 240 mg 11/29/24 22:56 11/30/24 22:18 Diltiazem Cd 240 Mg Capsule PO 240 mg QHS TERESSA Administration Protocol Furosemide 20 mg 11/30/24 10:00 12/01/24 08:56 Furosemide 20 Mg Tablet PO 20 mg DAILY TERESSA Administration Protocol Gabapentin 300 mg 11/29/24 23:45 11/30/24 22:19 Gabapentin 300 Mg Capsule PO 300 mg QHS TERESSA Administration Glycerin/Hypromellose/Polyethylene 1 - 2 drp 11/29/24 22:56 11/30/24 05:34 Glycerin/Hypromellose/[id number] 15 Ml Bottle EACH EYE 1 drp Q2H PRN PRN Administration DRY EYES Hydralazine HCl 10 mg 11/29/24 21:47 Hydralazine 20 Mg/Ml Vial IV Q8H PRN PRN SBP GREATER THAN 170 Protocol Hydralazine HCl 50 mg 11/30/24 08:00 12/01/24 06:11 Hydralazine 50 Mg Tablet PO 50 mg TID TERESSA Administration Protocol Sodium Chloride 250 mls @ 15 mls/hr 11/29/24 23:08 IV .[id number] PRN Additional IVPB Infusion Sodium Chloride 250 mls @ 15 mls/hr 11/29/24 23:08 IV .[id number] PRN Saline Flush Levothyroxine Sodium 50 mcg 11/30/24 06:00 12/01/24 06:11 Levothyroxine 50 Mcg Tablet PO 50 mcg DAILY@0600 TERESSA Administration Lorazepam 0.5 mg 11/29/24 22:56 11/30/24 22:44 Lorazepam 0.5 Mg Tablet PO 0.5 mg BID PRN PRN Administration Anxiety Lorazepam 1 mg 11/30/24 07:30 Lorazepam 1 Mg Tablet PO X1 PRN prior to MRI Losartan Potassium 100 mg 11/30/24 10:00 12/01/24 08:56 Losartan Potassium 100 Mg Tablet PO 100 mg DAILY TERESSA Administration Protocol Magnesium Hydroxide 30 ml 11/29/24 22:56 Magnesium Hydroxide 30 Ml Udc PO DAILY PRN PRN Constipation Melatonin 3 mg 11/29/24 22:56 Melatonin 3 Mg Tablet PO QHS PRN PRN INSOMNIA Meloxicam 15 mg 11/30/24 10:00 12/01/24 08:56 Meloxicam 15 Mg Tablet PO 15 mg DAILY TERESSA Administration Multivitamins 1 cap 11/30/24 10:00 12/01/24 08:55 Vitamin B Comp W-C Capsule PO 1 cap DAILY TERESSA Administration Ondansetron HCl 4 mg 11/29/24 22:56 Ondansetron 4 Mg/2 Ml Vial IV Q8H PRN PRN NAUSEA/VOMITING Pantoprazole Sodium 20 mg 11/30/24 10:00 12/01/24 08:56 Pantoprazole Sodium 20 Mg Tablet PO 20 mg DAILY TERESSA Administration Paroxetine HCl 40 mg 11/30/24 10:00 12/01/24 08:55 Paroxetine 20 Mg Tablet PO 40 mg DAILY TERESSA Administration Sodium Chloride 10 - 40 ml 11/29/24 23:08 12/01/24 08:57 0.9% Saline Lock 10 Ml Syringe IV 10 ml UD PRN Administration SALINE FLUSH Spironolactone 25 mg 11/30/24 08:00 12/01/24 08:56 Spironolactone 25 Mg Tablet PO 25 mg DAILYCM TERESSA Administration Protocol Sucralfate 1 gm 11/29/24 22:56 Sucralfate 1 Gm Tablet PO TID PRN PRN digestion 12/01/24 1249 <Electronically signed by Kyara Ponce MD> Cosigner Signature (if applicable): CC: Dr. Michael Puga, DO~ Signed [facility] Work Phone: [phone] Consult note [facility] System Medical Records Department [address] [place] [id number] Consultation - Neurology 12/01/24 1243 MR#: [id number] Acct: [id number] Name: MICHAEL MEIER Rep #:[id number] : 1940 84 From: Kyara Ponce MD PCP: Dr. Michael Puga, DO Status:AD M [place] Location: [place] [id number] Assessment and Plan: Neuro Assessment/Plan 84 F with a past medical history of essential hypertension, hyperlipidemia, hypothyroidism paroxysmal atrial fibrillation SSS; s/p PPM (2021), morbid obesity, JOSE, pulmonary hypertension, neuropathy;depression with anxiety OA whopresented to [facility] ER complaining of Right upperand lower extremity jitterness and difficulty walking. Her exam is reassuring with no focal findings. Her CT head did not show acute findings. There is no ataxia, or dysmetria on exam. When she stands up she jitters all over She is unable to obtain MRI due to pacemaker, no need for transfer for MRI, given her symptoms are not consistent with stroke. She has no focal findings on exam. She is resting comfortably in chair during the interview and enjoying lunch. She stands up and get jittery for few seconds then can standstill very comfortably, then we she is asked to take a step forwards she starts jittering again andfalls back to her chair. Recommend physical therapy. We will sign off. Please call with questions. I personally attended this patient and spent a total time of 45 minutes evaluating this patient including clinical assessment, review of chart, medical history imaging, and determining appropriate treatment and workup. HPI Consult Data Date of Consult: 12/01/24 HPI Narrative HPI Narrative: 84 F with a past medical history of essential hypertension, hyperlipidemia, hypothyroidism paroxysmal atrial fibrillation SSS; s/p PPM (2021), morbid obesity, JOSE, pulmonary hypertension, neuropathy;depression with anxiety OA whopresented to [facility] ER complaining of Right upperand lower extremity jitterness and difficulty walking. Patient reports on Wednesday, she was at a diabetic class, when she stood up rightside was shaking arm and leg not as bad as the right foot, the right foot was her biggest problem. When she tried to walk, her legs and knees gave up. She fell backwards. Her friend took you home, she had this problem through out untilshe got to her house. Then that evening, she felt better, and she went to bed and when she woke up on Wednesday it has returned, and it was harder for her to move. She ?presented to the hospital, blood pressure was 229/78. She uses a cane and a rollator at baseline. She has right leg tingling/numbness at baseline. She has a balance problem at baseline and she usually has someone assist her on the left side. She can?t walk for long because her legs gets tired. She reports she has a R foot drop at baseline. She is currently feeling better but the shaking is still there when she stands up. PHYSICAL EXAM: Exam performed with help of the nurse/HARJIT present with patient on Tele site NEURO: Patient is resting comfortably in chair, enjoying lunch during the interview. AAOx3, follows commands, no aphasia/dysarthria. EOMI, no gaze preference/nystagmus. Face symmetric, Intact facial sensation. Head turning intact. Sensation: intact to light touch all over, including face, arms and legs, feels equal on both side. Motor: All extremities antigravity Hip flexion 5/5 bilaterally, knee flexion and extension. Foot dorsal and plantarflexion 5/5 bilaterally (Though she reports R foot drop at baseline) Coordination: FTN intact bilaterally Upon standing up she gets jittery all over in her place for few seconds, then she stands still. Then when she takes a step forwards she starts jittering againand she threw herself back to her chair. 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 Right carotid bruit Pulmonary hypertension Obesity TIA (transient ischemic attack) (12/2018) GI bleed (2018) Essential (primary) hypertension Osteoarthritis Anxiety Daytime somnolence Dysmetabolic syndrome X Allergic rhinitis Malignant melanoma of skin of trunk, except scrotum Hyperlipidemia FH: sudden cardiac (SCD) Depression Paroxysmal atrial fibrillation Sick sinus syndrome Carotid artery disease Home Medications ?Medication ?Instructions ?Recorded ?Last Taken ?Type lorazepam 0.5 mg tablet 0.5 mg PO BID PRN PRN Anxiet y 05/13/16 Unknown History aspirin 81 mg tablet,delayed 81 mg PO QDAY heart healt h #90 tabs 12/27/18 Unknown Rx release (Adult Low Dose Aspirin) coenzyme Q10 100 mg capsule (Co 100 mg PO DAILY supple ment 01/23/20 Unknown History Q-10) rosuvastatin 10 mg tablet 10 mg PO DAILY cholesterol 0 01/23/20 Unknown History sucralfate 100 mg/mL oral 10 ml PO TID PRN digestion 0 11/25/21 Unknown History suspension cyclosporine 0.05 % eye drops in a 1 drp EACH EYE Q12H eye health 09/27/23 Unknown History dropperette (Restasis) albuterol sulfate 90 mcg/actuation 2 puff inhalation Q 6H PRN 10/02/23 Unknown Rx aerosol inhaler (ProAir HFA) shortness of breath or wh eezing #6.7 grams levothyroxine 50 mcg capsule 50 mcg PO QDAY 01/25/24 U nknown History spironolactone 25 mg tablet 25 mg PO DAILY #30 tabs Unknown Rx fluticasone propionate 110 1 inh inhalation Q12H 04/30 Unknown History mcg/actuation HFA aerosol inhaler meloxicam 15 mg tablet 15 mg PO DAILY 04/30/24 Unkn own History vitamin B complex (Balanced B-50 1 tab PO DAILY Unknown History tablet) diltiazem HCl 240 mg 240 mg PO QHS heart #90 caps 05/15/24 Unknown Rx capsule,extended release 24 hr hydralazine 50 mg tablet 50 mg PO BID #180 tabs 06/01 Unknown Rx furosemide 20 mg tablet 20 mg PO QDAY 07/06/24 Unkno wn History amiodarone 200 mg tablet 200 mg PO DAILY heart #90 ta bs 07/20/24 Unknown Rx losartan 100 mg tablet 100 mg PO DAILY blood pressu re #90 09/11/24 Unknown Rx tabs azelastine 0.05 % eye drops 1 drp ophthalmic (eye) BID PRN 11/02/24 Unknown History omeprazole 20 mg capsule,delayed 20 mg PO QDAY 5 Unknown History release paroxetine HCl 40 mg tablet 40 mg PO QDAY 11/02/24 Unk nown History gabapentin 100 mg capsule 100 mg PO DAILY neuropathy 0 11/29/24 Unknown History prednisone 10 mg tablet 10 mg PO DAILY 11/29/24 Unkn own History Allergy/AdvReac Type Severity Reaction Status Date / Time ciprofloxacin (From Cipro) Allergy Rash Verified 11/29/24 16:08 Penicillins (PCN) Allergy Hives Verified 11/29/24 16:08 Sulfa (Sulfonamide Allergy Hives Verified 11/29/24 16:08 Antibiotics) Beta-Blockers AdvReac Other Verified 11/29/24 16:08 (Beta-Adrenergic Bloc hydrocodone (From Vicodin) AdvReac Other Verified 11/29/24 16:08 lisinopril AdvReac cough Verified 11/29/24 16:08 meperidine (From Demerol) AdvReac Vomiting Verified 11/29/24 16:08 morphine AdvReac Other Verified 11/29/24 16:08 pravastatin AdvReac Other Verified 11/29/24 16:08 Family History Grandfather Myocardial infarction Sudden cardiac Father Myocardial infarction CAD (coronary artery disease) CHF (congestive heart failure) Mother Myocardial infarction CAD (coronary artery disease) A-fib Brother A-fib CHF (congestive heart failure) Brother Cancer Son Diabetes Son Hypertension Surgical History History of permanent cardiac pacemaker placement (06/09/21) History of esophagogastroduodenoscopy (EGD) (09/07/18) History of left heart catheterization (LHC) (05/2011) 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) History of total right knee replacement (TKR) (~08/2011) History of right hip replacement (~2003) History of cholecystectomy History of total left knee replacement (TKR) Social History housing: house Smoking Status: Never smoker alcohol intake: never substance use type: does not use caffeine: Yes what type of physical activity do you participate in: none seatbelt use: always Vital Signs Vital Signs Vital Signs: 11/30/24 14:27 11/30/24 14:50 11/30/24 14:50 Temperature 98.1 F Temperature Source Temporal Pulse Rate 60 60 Pulse Strength Respiratory Rate 18 Respiratory Effort Normal Non-Labored Respiratory Depth Normal Respiratory Pattern Normal Blood Pressure 139/52 H 139/52 H Blood Pressure Mean 81 Blood Pressure Source Monitor Blood Pressure Position Semi-Fowlers Blood Pressure Location Right Arm Pulse Ox 96 Oxygen Delivery Method Nasal Cannula Room Air Oxygen Flow Rate (L/min) 2 11/30/24 19:48 11/30/24 22:15 11/30/24 22:18 Temperature 97.8 F Temperature Source Oral Pulse Rate 60 60 Pulse Strength Respiratory Rate 16 Respiratory Effort Normal Non-Labored Respiratory Depth Normal Respiratory Pattern Normal Blood Pressure 137/51 H 137/51 H Blood Pressure Mean 79 Blood Pressure Source Monitor Blood Pressure Position Semi-Fowlers Blood Pressure Location Right Arm Pulse Ox 95 Oxygen Delivery Method Room Air Room Air Oxygen Flow Rate (L/min) 12/01/24 04:10 12/01/24 04:15 12/01/24 06:10 Temperature 96.9 F L 97.6 F L Temperature Source Temporal Temporal Pulse Rate 63 61 Pulse Strength Respiratory Rate 16 16 Respiratory Effort Normal Non-Labored Respiratory Depth Normal Respiratory Pattern Normal Blood Pressure 131/51 H 134/61 H Blood Pressure Mean 77 85 Blood Pressure Source Monitor Monitor Blood Pressure Position Semi-Fowlers Semi-Fowlers Blood Pressure Location Right Arm Right Arm Pulse Ox 99 97 Oxygen Delivery Method Nasal Cannula Nasal Cannula Room Air Oxygen Flow Rate (L/min) 2 2 12/01/24 06:11 12/01/24 06:38 12/01/24 06:38 Temperature Temperature Source Pulse Rate 61 64 Pulse Strength Respiratory Rate 16 Respiratory Effort Respiratory Depth Respiratory Pattern Normal Blood Pressure 134/61 H Blood Pressure Mean Blood Pressure Source Blood Pressure Position Blood Pressure Location Pulse Ox 94 Oxygen Delivery Method Room Air Oxygen Flow Rate (L/min) 12/01/24 08:14 12/01/24 08:43 12/01/24 08:55 Temperature 97.7 F L Temperature Source Temporal Pulse Rate 60 Pulse Strength Normal (2+) Respiratory Rate 18 Respiratory Effort Normal Non-Labored Respiratory Depth Normal Respiratory Pattern Normal Blood Pressure 144/51 H Blood Pressure Mean 82 Blood Pressure Source Monitor Blood Pressure Position Semi-Fowlers Blood Pressure Location Right Arm Pulse Ox 95 Oxygen Delivery Method Room Air Room Air Oxygen Flow Rate (L/min) Weight Weight: 106.2 kg Body Mass Index (BMI) 38.9 EEG Results Procedure Details EEG Procedure Details: MICHAEL MEIER is a 84 year old F with a past medical history of , who presents for evaluation of Electroencephalogram on DATE at TIME Lab / Micro Data 12/01/24 06:21 12/01/24 06:21 Labs: Laboratory Results - last 24 hr 11/30/24 13:20: Urine Opiates Screen NEGATIVE, U Buprenorphine Qual NEGATIVE, UrOxycodone Screen NEGATIVE, Urine Methadone Screen NEGATIVE, Urine Fentanyl Screen NEGATIVE, Ur Barbiturates Screen NEGATIVE, Ur Phencyclidine Scrn NEGATIVE, Ur Amphetamines Screen NEGATIVE, U Benzodiazepines Scrn PRESUMPTIVE POSITIVE, Urine Cocaine Screen NEGATIVE, U Cannabinoids Screen NEGATIVE 12/01/24 06:21: WBC 8.9, RBC 3.51 L, Hgb 10.5 L, Hct 31.7 L, MCV 90.3, MCH 29.9,MCHC 33.1, RDW Std Deviation 48.8 H, RDW Coeff of Chandu 14.8 H, Plt Count 196, MPV10.1, Immature Gran % (Auto) 0.300, Neut % (Auto) 70.9 H, Lymph % (Auto) 13.0 L,Addison % (Auto) 12.3 H, Eos % (Auto) 2.9, Baso % (Auto) 0.6, Absolute Neuts (auto)6.3, Absolute Lymphs (auto) 1.16, Nucleated RBC % 0, Sodium 131 L, Potassium 4.7, Chloride 96 L, Carbon Dioxide 26.3, Anion Gap 9, BUN 33 H, Creatinine 1.23 H, Estim Creat Clear Calc 41.95 L, Est GFR (MDRD) Non-Af 44 L, BUN/Creatinine Ratio 26.4 H, Glucose 110 H, Calcium 8.4 Imaging Radiology Impression Echocardiogram 11/29/24 21:46 Interpretation Summary Normal LV size. Left ventricular systolic function is normal. Moderate concentric left ventricular hypertrophy. The left ventricular ejection fraction is 60 %. Pulmonary artery systolic pressure is 65 mmHg. Moderate pulmonary hypertension. Ordering Physician: Tacho Davis Referring Physician: Michael Puga, Performed By: Ezlbieta Hampton and Student Brain CT 11/30/24 14:20 IMPRESSION: No acute intracranial abnormality. Reading Location: [facility] Active Medications Active Medications Active Medications: Current Medications Generic Name Dose Route Start Last Admin Trade Name Freq PRN Reason Stop Dose Admin Acetaminophen 650 mg 11/29/24 22:56 11/30/24 08:00 Acetaminophen 325 Mg Tablet PO 650 mg Q6H PRN PRN Administration Pain 1-10 Or Fever>100.7 Al Hydroxide/Mg Hydroxide 30 ml 11/29/24 22:56 Mag Hydrox/Al Hydrox/Simeth 30 Ml Udc PO Q6H PRN PRN Gastric Burning Albuterol Sulfate 2.5 mg 11/29/24 22:56 Albuterol 2.5 Mg/3 Ml Vial.Neb. INHALATION Q4H PRN PRN shortness of breath/wheezing Amiodarone HCl 200 mg 11/30/24 08:00 12/01/24 08:56 Amiodarone 200 Mg Tablet PO 200 mg DAILYCM TERESSA Administration Aspirin 81 mg 11/30/24 08:00 12/01/24 08:56 Aspirin E.C. 81 Mg Tablet PO 81 mg BREAKFAST TERESSA Administration Atorvastatin Calcium 20 mg 11/30/24 22:00 11/30/24 22:18 Atorvastatin Calcium 20 Mg Tablet PO 20 mg QHS TERESSA Administration Azelastine HCl 1 ml 11/29/24 22:56 Azelastine Hcl 6 Ml Drops OPHTHALMIC BID PRN PRN ITCHING EYES Budesonide 0.5 mg 11/30/24 06:00 12/01/24 06:37 Budesonide Respules 0.5 Mg/2 Ml Ampul.Neb. INHALATION 0.5 mg Q12H.RT TERESSA Administration Diltiazem HCl 240 mg 11/29/24 22:56 11/30/24 22:18 Diltiazem Cd 240 Mg Capsule PO 240 mg QHS TERESSA Administration Protocol Furosemide 20 mg 11/30/24 10:00 12/01/24 08:56 Furosemide 20 Mg Tablet PO 20 mg DAILY TERESSA Administration Protocol Gabapentin 300 mg 11/29/24 23:45 11/30/24 22:19 Gabapentin 300 Mg Capsule PO 300 mg QHS TERESSA Administration Glycerin/Hypromellose/Polyethylene 1 - 2 drp 11/29/24 22:56 11/30/24 05:34 Glycerin/Hypromellose/[id number] 15 Ml Bottle EACH EYE 1 drp Q2H PRN PRN Administration DRY EYES Hydralazine HCl 10 mg 11/29/24 21:47 Hydralazine 20 Mg/Ml Vial IV Q8H PRN PRN SBP GREATER THAN 170 Protocol Hydralazine HCl 50 mg 11/30/24 08:00 12/01/24 06:11 Hydralazine 50 Mg Tablet PO 50 mg TID TERESSA Administration Protocol Sodium Chloride 250 mls @ 15 mls/hr 11/29/24 23:08 IV .[id number] PRN Additional IVPB Infusion Sodium Chloride 250 mls @ 15 mls/hr 11/29/24 23:08 IV .[id number] PRN Saline Flush Levothyroxine Sodium 50 mcg 11/30/24 06:00 12/01/24 06:11 Levothyroxine 50 Mcg Tablet PO 50 mcg DAILY@0600 TERESSA Administration Lorazepam 0.5 mg 11/29/24 22:56 11/30/24 22:44 Lorazepam 0.5 Mg Tablet PO 0.5 mg BID PRN PRN Administration Anxiety Lorazepam 1 mg 11/30/24 07:30 Lorazepam 1 Mg Tablet PO X1 PRN prior to MRI Losartan Potassium 100 mg 11/30/24 10:00 12/01/24 08:56 Losartan Potassium 100 Mg Tablet PO 100 mg DAILY TERESSA Administration Protocol Magnesium Hydroxide 30 ml 11/29/24 22:56 Magnesium Hydroxide 30 Ml Udc PO DAILY PRN PRN Constipation Melatonin 3 mg 11/29/24 22:56 Melatonin 3 Mg Tablet PO QHS PRN PRN INSOMNIA Meloxicam 15 mg 11/30/24 10:00 12/01/24 08:56 Meloxicam 15 Mg Tablet PO 15 mg DAILY TERESSA Administration Multivitamins 1 cap 11/30/24 10:00 12/01/24 08:55 Vitamin B Comp W-C Capsule PO 1 cap DAILY TERESSA Administration Ondansetron HCl 4 mg 11/29/24 22:56 Ondansetron 4 Mg/2 Ml Vial IV Q8H PRN PRN NAUSEA/VOMITING Pantoprazole Sodium 20 mg 11/30/24 10:00 12/01/24 08:56 Pantoprazole Sodium 20 Mg Tablet PO 20 mg DAILY TERESSA Administration Paroxetine HCl 40 mg 11/30/24 10:00 12/01/24 08:55 Paroxetine 20 Mg Tablet PO 40 mg DAILY TERESSA Administration Sodium Chloride 10 - 40 ml 11/29/24 23:08 12/01/24 08:57 0.9% Saline Lock 10 Ml Syringe IV 10 ml UD PRN Administration SALINE FLUSH Spironolactone 25 mg 11/30/24 08:00 12/01/24 08:56 Spironolactone 25 Mg Tablet PO 25 mg DAILYCM TERESSA Administration Protocol Sucralfate 1 gm 11/29/24 22:56 Sucralfate 1 Gm Tablet PO TID PRN PRN digestion 12/01/24 1249 Cosigner Signature (if applicable): CC: Dr. Michael Puga, DO~ Signed [facility]07-31-2025 Progress note Author Jonny Vicente [facility] Note Date/Time November 30, 2024 5:22 pm [facility] Medical Records Department [address] [place] [address] Progress Note - Hospitalist 11/30/24 1626 MR#: [id number] Acct: [id number] Name: MICHAEL MEIER Rep #:[id number] : 1940 84 From: Jonny pacheco MD PCP: Dr. Michael Puga, DO Status:AD M CORBY Location: [place] [address] Subjective Subjective No issues overnight, admitted with hypertensive urgency and tremors. She says that she has the tremors whenever she just stands up but otherwise does not havetremors Objective Data Objective Data Vital Signs: Vital Signs Temp Pulse Resp BP Pulse Ox O2 Del Method O2 Flow Rate 98.1 F 60 18 139/52 H 96 Room Air 2 11/30/24 14:50 11/30/24 14:50 11/30/24 14:50 11/30/24 14:50 11/30/24 14:50 11/30/24 14:50 11/30/24 14:27 Oxygen Flow Rate (L/min) 2 Oxygen Delivery Method Room Air Weight: 236 lb 5.369 oz Body Mass Index (BMI) 39.3 Intake & Output: Intake and Output for Last 24 Hours 11/29/24 11/30/24 12/01/24 03:59 03:59 03:59 Intake Total 240 / 240 240 / 240 Output Total 650 / 650 400 / 400 Balance -410 / -410 -160 / -160 Lab / Micro Data 11/30/24 06:33 11/30/24 06:33 Labs: Laboratory Results - last 24 hr 11/29/24 16:33: WBC 9.6, RBC 3.86 L, Hgb 11.6 L, Hct 34.5 L, MCV 89.4, MCH 30.1,MCHC 33.6, RDW Std Deviation 46.8 H, RDW Coeff of Chandu 14.4, Plt Count 201, MPV 10.2, Immature Gran % (Auto) 0.500, Neut % (Auto) 72.4 H, Lymph % (Auto) 11.5 L,Addison % (Auto) 12.1 H, Eos % (Auto) 2.9, Baso % (Auto) 0.6, Absolute Neuts (auto)7.0, Absolute Lymphs (auto) 1.10, Nucleated RBC % 0, Sodium 133, Potassium 5.0, Chloride 98, Carbon Dioxide 22.9, Anion Gap 12, BUN 38 H, Creatinine 1.11, EstimCreat Clear Calc 48.43 L, Est GFR (MDRD) Non-Af 49 L, BUN/Creatinine Ratio 34.3 H, Glucose 94, Hemoglobin A1c 5.7, Calcium 8.9, Magnesium 2.3 H, Total Bilirubin0.57, AST 29, ALT 37 H, Alkaline Phosphatase 63, Total Protein 6.3, Albumin 4.0,Globulin 2.4, Albumin/Globulin Ratio 1.7, Lipase 20, Vitamin B12 2838 H, TSH 2.190 11/29/24 16:33: TSH 2.120, Urine Color Yellow, Urine Clarity Clear, Urine pH 6.0, Ur Specific [place] 1.010, Urine Protein Negative, Urine Glucose (UA) Normal, Urine Ketones Negative, Urine Occult Blood Negative, Urine Nitrite Negative, Urine Bilirubin Negative, Urine Urobilinogen Normal, Ur Leukocyte Esterase 500 H, Urine RBC 0 SEEN, Urine WBC 0-5 SEEN, Ur Squamous Epith Cells 0-5 SEEN, Urine Bacteria 0 SEEN, Urine Mucus 0 SEEN, Ethyl Alcohol < 10.1 11/30/24 06:33: WBC 9.4, RBC 3.72 L, Hgb 11.2 L, Hct 33.8 L, MCV 90.9, MCH 30.1,MCHC 33.1, RDW Std Deviation 48.4 H, RDW Coeff of Chandu 14.6, Plt Count 212, MPV 9.7, Immature Gran % (Auto) 0.700, Neut % (Auto) 73.5 H, Lymph % (Auto) 9.5 L, Addison % (Auto) 13.0 H, Eos % (Auto) 2.8, Baso % (Auto) 0.5, Absolute Neuts (auto) 6.9, Absolute Lymphs (auto) 0.89, Nucleated RBC % 0, Sodium 136, Potassium 4.7, Chloride 99, Carbon Dioxide 26.1, Anion Gap 10, BUN 35 H, Creatinine 1.25 H, Estim Creat Clear Calc 41.49 L, Est GFR (MDRD) Non-Af 43 L, BUN/Creatinine Ratio 27.8 H, Glucose 111 H, Calcium 8.9, Phosphorus 3.8, Total Bilirubin 0.50, AST 25, ALT 36 H, Alkaline Phosphatase 58, Total Protein 5.9, Albumin 3.6, Globulin 2.3, Albumin/Globulin Ratio 1.6, Triglycerides 88, Cholesterol 148, LDL Cholesterol, Calc 53, VLDL Cholesterol 18, HDL Cholesterol 78, Cholesterol/HDL Ratio 1.91, Serum Folate 26.00 11/30/24 13:20: Urine Opiates Screen NEGATIVE, U Buprenorphine Qual NEGATIVE, UrOxycodone Screen NEGATIVE, Urine Methadone Screen NEGATIVE, Urine Fentanyl Screen NEGATIVE, Ur Barbiturates Screen NEGATIVE, Ur Phencyclidine Scrn NEGATIVE, Ur Amphetamines Screen NEGATIVE, U Benzodiazepines Scrn PRESUMPTIVE POSITIVE, Urine Cocaine Screen NEGATIVE, U Cannabinoids Screen NEGATIVE Radiography Diagnostic Testing: Radiology Impression Brain CT 11/29/24 16:22 IMPRESSION: No acute intracranial abnormality. Reading Location: [facility] Brain CT 11/30/24 14:20 IMPRESSION: No acute intracranial abnormality. Reading Location: [facility] Physical Exam Narrative General: Alert, Oriented x3, Cooperative, No apparent distress HEENT: Atraumatic, PERRLA, EOMI, Normocephalic Oral: Moist Mucosa Neck: Supple, No JVD Lungs: Diminished, Normal air movement, No rhonchi, No wheeze, No rales Cardiovascular: Regular rate, Regular Rhythm, Normal S1, Normal S2, No murmurs Abdomen: Soft, Non Tender, Non-Distended, No Hepato-splenomegaly Extremities: No edema, Capillary Refill Less than 3 Seconds Skin: No rashes, No breakdown Musculoskeletal: No Tenderness to Palpation of Joints or Extremities Neurological: No focal neurological deficits, moves all extremities, sensation intact Psych/Mental Status: Normal Affect, Appropriate Assessment & Plan Assessment/Plan (1) Tremor: (2) Hypertensive urgency: PLAN: Plan 1. Hypertensive urgency/paroxysmal A-fib/essential HTN/HLD/history of sick sinus syndrome status post pacemaker/history of TIA/pulmonary hypertension ? Blood pressures were elevated to 229/78, seems a little bit incongruous to have such a wide pulse pressure not sure that the 229 is accurate especially since the rest of her blood pressures are stable and there has not been any significant adjustments to her blood pressure medications, I did make her hydralazine 50 mg 3 times daily instead of twice daily but otherwise her home medications were continued as it is ? Will not repeat carotids as she had them done in July and there were less than 50% stenosis bilaterally ? She could not obtain an MRI secondary to her pacemaker so repeated CT scan this afternoon which was negative for stroke ? PT/OT for evaluation of possible placement ? Continue with statin and aspirin ? The tremors do not appear consistent with stroke, will monitor 2. Hypothyroidism ? Stable ? Continue with Synthroid 3. Neuropathy ? Stable ? Continue with gabapentin 4. GERD with history of GI bleed ? Stable ? Continue PPI and Carafate 5. Anxiety/depression ? Stable ? Continue with her home medications DVT: SCDs Charges/Coding Visit Charges Inpatient E&M: 39392 Subs Hosp L2 11/30/24 1722 <Electronically signed by Jonny Vicente MD> Cosigner Signature (if applicable): CC: ~ Signed [facility] Work Phone: [phone] Progress note [facility] Medical Records Department [address] [place] [address] Progress Note - Hospitalist 11/30/24 1626 MR#: [id number] Acct: [id number] Name: MICHAEL MEIER Rep #:[id number] : 1940 84 From: Jonny pacheco MD PCP: Dr. Michael Puga, DO Status:AD Loli TAVAREZ Location: [place] [address] Subjective Subjective No issues overnight, admitted with hypertensive urgency and tremors. She says that she has the tremors whenever she just stands up but otherwise does not havetremors Objective Data Objective Data Vital Signs: Vital Signs Temp Pulse Resp BP Pulse Ox O2 Del Method O2 Flow Rate 98.1 F 60 18 139/52 H 96 Room Air 2 11/30/24 14:50 11/30/24 14:50 11/30/24 14:50 11/30/24 14:50 11/30/24 14:50 11/30/24 14:50 11/30/24 14:27 Oxygen Flow Rate (L/min) 2 Oxygen Delivery Method Room Air Weight: 236 lb 5.369 oz Body Mass Index (BMI) 39.3 Intake & Output: Intake and Output for Last 24 Hours 11/29/24 11/30/24 12/01/24 03:59 03:59 03:59 Intake Total 240 / 240 240 / 240 Output Total 650 / 650 400 / 400 Balance -410 / -410 -160 / -160 Lab / Micro Data 11/30/24 06:33 11/30/24 06:33 Labs: Laboratory Results - last 24 hr 11/29/24 16:33: WBC 9.6, RBC 3.86 L, Hgb 11.6 L, Hct 34.5 L, MCV 89.4, MCH 30.1,MCHC 33.6, RDW Std Deviation 46.8 H, RDW Coeff of Chandu 14.4, Plt Count 201, MPV 10.2, Immature Gran % (Auto) 0.500, Neut% (Auto) 72.4 H, Lymph % (Auto) 11.5 L,Addison % (Auto) 12.1 H, Eos % (Auto) 2.9, Baso % (Auto) 0.6, Absolute Neuts (auto)7.0, Absolute Lymphs (auto) 1.10, Nucleated RBC % 0, Sodium 133, Potassium 5.0, Chloride 98, Carbon Dioxide 22.9, Anion Gap 12, BUN 38 H, Creatinine 1.11, EstimCreat Clear Calc 48.43 L, Est GFR (MDRD) Non-Af 49 L, BUN/Creatinine Ratio 34.3 H, Glucose 94, Hemoglobin A1c 5.7, Calcium 8.9, Magnesium 2.3 H, Total Bilirubin0.57, AST 29, ALT 37 H, Alkaline Phosphatase 63, Total Protein 6.3, Albumin 4.0,Globulin 2.4, Albumin/Globulin Ratio 1.7, Lipase 20, Vitamin B12 2838 H, TSH 2.190 11/29/24 16:33: TSH 2.120, Urine Color Yellow, Urine Clarity Clear, Urine pH 6.0, Ur Specific [place] 1.010, Urine Protein Negative, Urine Glucose (UA) Normal, Urine Ketones Negative, Urine Occult Blood Negative, Urine Nitrite Negative, Urine Bilirubin Negative, Urine Urobilinogen Normal, Ur Leukocyte Esterase 500 H, Urine RBC 0 SEEN, Urine WBC 0-5 SEEN, Ur Squamous Epith Cells 0- 5 SEEN, Urine Bacteria 0 SEEN, Urine Mucus 0 SEEN, Ethyl Alcohol < 10.1 11/30/24 06:33: WBC 9.4, RBC 3.72 L, Hgb 11.2 L, Hct 33.8 L, MCV 90.9, MCH 30.1,MCHC 33.1, RDW Std Deviation 48.4 H, RDW Coeff of Chandu 14.6, Plt Count 212, MPV 9.7, Immature Gran % (Auto) 0.700, Neut % (Auto) 73.5 H, Lymph % (Auto) 9.5 L, Addison % (Auto) 13.0 H, Eos % (Auto) 2.8, Baso % (Auto) 0.5, Absolute Neuts (auto) 6.9, Absolute Lymphs (auto) 0.89, Nucleated RBC % 0, Sodium 136, Potassium 4.7, Chloride 99, Carbon Dioxide 26.1, Anion Gap 10, BUN 35 H, Creatinine 1.25 H, Estim Creat Clear Calc 41.49 L, Est GFR (MDRD) Non-Af 43 L, BUN/Creatinine Ratio 27.8 H, Glucose 111 H, Calcium 8.9, Phosphorus 3.8, Total Bilirubin 0.50, AST 25, ALT 36 H, Alkaline Phosphatase 58, Total Protein 5.9, Albumin 3.6, Globulin 2.3, Albumin/Globulin Ratio 1.6, Triglycerides 88, Cholesterol 148, LDL Cholesterol,Calc 53, VLDL Cholesterol 18, HDL Cholesterol 78, Cholesterol/HDL Ratio 1.91, Serum Folate 26.00 11/30/24 13:20: Urine Opiates Screen NEGATIVE, U Buprenorphine Qual NEGATIVE, UrOxycodone Screen NEGATIVE, Urine Methadone Screen NEGATIVE, Urine Fentanyl Screen NEGATIVE, Ur Barbiturates Screen NEGATIVE, Ur Phencyclidine Scrn NEGATIVE, Ur Amphetamines Screen NEGATIVE, U Benzodiazepines Scrn PRESUMPTIVE POSITIVE, Urine Cocaine Screen NEGATIVE, U Cannabinoids Screen NEGATIVE Radiography Diagnostic Testing: Radiology Impression Brain CT 11/29/24 16:22 IMPRESSION: No acute intracranial abnormality. Reading Location: [facility] Brain CT 11/30/24 14:20 IMPRESSION: No acute intracranial abnormality. Reading Location: [facility] Physical Exam Narrative General: Alert, Oriented x3, Cooperative, No apparent distress HEENT: Atraumatic, PERRLA, EOMI, Normocephalic Oral: Moist Mucosa Neck: Supple, No JVD Lungs: Diminished, Normal air movement, No rhonchi, No wheeze, No rales Cardiovascular: Regular rate, Regular Rhythm, Normal S1, Normal S2, No murmurs Abdomen: Soft, Non Tender, Non-Distended, No Hepato-splenomegaly Extremities: No edema, Capillary Refill Less than 3 Seconds Skin: No rashes, No breakdown Musculoskeletal: No Tenderness to Palpation of Joints or Extremities Neurological: No focal neurological deficits, moves all extremities, sensation intact Psych/Mental Status: Normal Affect, Appropriate Assessment & Plan Assessment/Plan (1) Tremor: (2) Hypertensive urgency: PLAN: Plan 1. Hypertensive urgency/paroxysmal A-fib/essential HTN/HLD/history of sick sinus syndrome status post pacemaker/history of TIA/pulmonary hypertension ? Blood pressures were elevated to 229/78, seems a little bit incongruous to have such a wide pulsepressure not sure that the 229 is accurate especially since the rest of her blood pressures are stable and there has not been any significant adjustments to her blood pressure medications, I did makeher hydralazine 50 mg 3 times daily instead of twice daily but otherwise her home medications were continued as it is ? Will not repeat carotids as she had them done in July and there were less than 50% stenosis bilaterally ? She could not obtain an MRI secondary to her pacemaker so repeated CT scan this afternoon which was negative for stroke ? PT/OT for evaluation of possible placement ? Continue with statin and aspirin ? The tremors do not appear consistent with stroke, will monitor 2. Hypothyroidism ? Stable ? Continue with Synthroid 3. Neuropathy ? Stable ? Continue with gabapentin 4. GERD with history of GI bleed ? Stable ? Continue PPI and Carafate 5. Anxiety/depression ? Stable ? Continue with her home medications DVT: SCDs Charges/Coding Visit Charges Inpatient E&M: 94168 Subs Hosp L2 11/30/24 1722 Cosigner Signature (if applicable): CC: ~ Signed [facility]07-31-2025 Radiology Diagnostic study note [facility] [address] [place] [address] Brain/Head without Contrast MR#: [id number] Acct: [id number] Name: MICHAEL MEIER Rep #: [id number] : 1940 F 84 From: Jose D Saldana MD PCP: Dr. Michael Puga DO Status: AD M CORBY Study:Brain/Head without Contrast Date of Exa m: 11/30/24 Exam# [id number] Ordering Dr: Jonny Vicente MD PROCEDURE: BRAIN/HEAD WITHOUT CONTRAST 11/30/2024 REASON FOR EXAM: CVA R/O, CANT HAVE MRI TECHNIQUE: BRAIN/HEAD WITHOUT CONTRAST Coronal and Sagittal reconstruction series were provided. One or more dose reduction techniques were used (e.g., Automated exposure control, adjustment of the mA and/or kV according to patient size, use of iterative reconstruction technique. RADIATION DOSE SUMMARY: CTDlvol: 44.99 mGy DLP: 863.60 mGycm COMPARISON: 11/29/2024 and 12/26/2021 FINDINGS: BRAIN: No acute intraparenchymal hemorrhage. No mass lesion. No CT evidence for acute territorial infarct.No midline shift or extra-axial collection. VENTRICLES: No hydrocephalus. ORBITS: Intraocular lens implants bilaterally. The orbits are otherwise unremarkable. SINUSES AND MASTOIDS: The paranasal sinuses and mastoid air cells are clear. SOFT TISSUES: No acute abnormality seen. BONES: No acute osseous abnormality seen. OTHER: Calcified carotid siphons and vertebral arteries. CT/Brain/Head without Contrast IMPRESSION: No acute intracranial abnormality. Reading Location: [facility] CC: Dr. Michael Puga DO; Dr. Jonny Vicente MD ~ Bulk Tank Driver: Signed [facility]07-31-2025 History and physical note Author Tacho Goncalves [facility] Note Date/Time November 30, 2024 6:34 am [facility] Medical Records Department [address] [place] [address] H&P Exam - Hospitalist 11/29/242119 MR#: [id number] Acct: [id number] Name: MICHAEL MEIER Rep #:[id number] : 1940 84 From: Tacho Vanegas DO PCP: Dr. Michael Puga, DO Status:AD M CORBY Location: [place] [address] HPI - General General Date of Admission: 11/29/24 Date of Service: 11/29/24 Chief Complaint: Right Upper and Lower Extremity Tremors. HPI Narrative MICHAEL MEIER, is a 84 F with a past medical history of essential hypertension; on losartan, hydralazine twice daily, spironolactone and furosemide, hyperlipidemia; on rosuvastatin, hypothyroidism; on levothyroxine, history of paroxysmal atrial fibrillation; on baby aspirin, diltiazem and amiodarone, history of SSS; s/p PPM (2021), history of TIA (2018), morbid obesity; with BMI of 41.9 this admission, JOSE, history of pulmonary hypertension, history of Right carotid bruit, neuropathy; on gabapentin, depression with anxiety; on paroxetine and lorazepam twice daily as needed, GERDwith history of GI bleed; on omeprazole plus sucralfate 3 times daily and OA; onmeloxicam who presents to [facility] ER complaining of Right upper and lower extremity tremors. Ms. Meier reports her symptoms began yesterday when she suddenly developed shaking in her Right upper and lower extremities. She states the tremor is madeworse with standing but it does get better with rest with associated low back pain. Since yesterday she states it has been nearly constant so she decided to come in for further evaluation and treatment. She denies recent trauma, injury or similar previous episodes. She also denies associated headache, paresthesia or other focal motor or sensory neurologic deficits. There was also no report of fever, chills, runny nose, sore throat, ear pain, chest pain, palpitations, heart racing, lower extremity edema, dysuria, hematuria or rash. She explained to the ER physician that she is concerned because she lives at home alone because she may fall so decision was made to contact the hospitalist service. In the ER she was noted to have a highly elevated blood pressure of 229/78 mmHg present on admission consistent with suspected Hypertensive Emergency complicated by new-onset Right upper and lower extremity tremors with a corresponding head CT without contrast that revealed no acute intracranial abnormality. She was then admitted to the PCU under observation status for ongoing care for state that is expected to be less than 2 midnights. 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 Right carotid bruit Pulmonary hypertension Obesity TIA (transient ischemic attack) (12/2018) GI bleed (2018) Essential (primary) hypertension Osteoarthritis Anxiety Daytime somnolence Dysmetabolic syndrome X Allergic rhinitis Malignant melanoma of skin of trunk, except scrotum Hyperlipidemia FH: sudden cardiac (SCD) Depression Paroxysmal atrial fibrillation Sick sinus syndrome Carotid artery disease Home Medications ?Medication ?Instructions ?Recorded ?Last Taken ?Type lorazepam 0.5 mg tablet 0.5 mg PO BID PRN PRN Anxiet y 05/13/16 Unknown History aspirin 81 mg tablet,delayed 81 mg PO QDAY heart healt h #90 tabs 12/27/18 Unknown Rx release (Adult Low Dose Aspirin) coenzyme Q10 100 mg capsule (Co 100 mg PO DAILY supple ment 01/23/20 Unknown History Q-10) rosuvastatin 10 mg tablet 10 mg PO DAILY cholesterol 0 01/23/20 Unknown History sucralfate 100 mg/mL oral 10 ml PO TID PRN digestion 0 11/25/21 Unknown History suspension cyclosporine 0.05 % eye drops in a 1 drp EACH EYE Q12H eye health 09/27/23 Unknown History dropperette (Restasis) albuterol sulfate 90 mcg/actuation 2 puff inhalation Q 6H PRN 10/02/23 Unknown Rx aerosol inhaler (ProAir HFA) shortness of breath or wh eezing #6.7 grams levothyroxine 50 mcg capsule 50 mcg PO QDAY 01/25/24 U nknown History spironolactone 25 mg tablet 25 mg PO DAILY #30 tabs Unknown Rx fluticasone propionate 110 1 inh inhalation Q12H 04/30 Unknown History mcg/actuation HFA aerosol inhaler meloxicam 15 mg tablet 15 mg PO DAILY 04/30/24 Unkn own History vitamin B complex (Balanced B-50 1 tab PO DAILY Unknown History tablet) diltiazem HCl 240 mg 240 mg PO QHS heart #90 caps 05/15/24 Unknown Rx capsule,extended release 24 hr hydralazine 50 mg tablet 50 mg PO BID #180 tabs 06/01 Unknown Rx furosemide 20 mg tablet 20 mg PO QDAY 07/06/24 Unkno wn History amiodarone 200 mg tablet 200 mg PO DAILY heart #90 ta bs 07/20/24 Unknown Rx losartan 100 mg tablet 100 mg PO DAILY blood pressu re #90 09/11/24 Unknown Rx tabs azelastine 0.05 % eye drops 1 drp ophthalmic (eye) BID PRN 11/02/24 Unknown History omeprazole 20 mg capsule,delayed 20 mg PO QDAY 5 Unknown History release paroxetine HCl 40 mg tablet 40 mg PO QDAY 11/02/24 Unk nown History gabapentin 100 mg capsule 100 mg PO DAILY neuropathy 0 11/29/24 Unknown History prednisone 10 mg tablet 10 mg PO DAILY 11/29/24 Unkn own History Allergy/AdvReac Type Severity Reaction Status Date / Time ciprofloxacin (From Cipro) Allergy Rash Verified 11/29/24 16:08 Penicillins (PCN) Allergy Hives Verified 11/29/24 16:08 Sulfa (Sulfonamide Allergy Hives Verified 11/29/24 16:08 Antibiotics) Beta-Blockers AdvReac Other Verified 11/29/24 16:08 (Beta-Adrenergic Bloc hydrocodone (From Vicodin) AdvReac Other Verified 11/29/24 16:08 lisinopril AdvReac cough Verified 11/29/24 16:08 meperidine (From Demerol) AdvReac Vomiting Verified 11/29/24 16:08 morphine AdvReac Other Verified 11/29/24 16:08 pravastatin AdvReac Other Verified 11/29/24 16:08 Family History Grandfather Myocardial infarction Sudden cardiac Father Myocardial infarction CAD (coronary artery disease) CHF (congestive heart failure) Mother Myocardial infarction CAD (coronary artery disease) A-fib Brother A-fib CHF (congestive heart failure) Brother Cancer Son Diabetes Son Hypertension Surgical History History of permanent cardiac pacemaker placement (06/09/21) History of esophagogastroduodenoscopy (EGD) (09/07/18) History of left heart catheterization (LHC) (05/2011) 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) History of total right knee replacement (TKR) (~08/2011) History of right hip replacement (~2003) History of cholecystectomy History of total left knee replacement (TKR) Social History housing: house Smoking Status: Never smoker alcohol intake: never substance use type: does not use caffeine: Yes what type of physical activity do you participate in: none seatbelt use: always ROS ROS Narrative Review of Systems: Constitutional: Patient denies fever or chills. Eyes: Patient denies changes in vision or discharge from eyes. ENT: Patient denies runny nose, sore throat or ear pain. Resp: Patient denies shortness of breath or cough. CV: Patient denies chest pain, palpitations, heart racing or lower extremity edema. GI: Patient denies abdominal pain, nausea, vomiting, diarrhea or constipation. : Patient denies dysuria or hematuria. MSK: Patient admits to back pain but she denies neck pain. Skin: Patient denies rash, abscess, wounds or jaundice. Psych: Patient denies symptoms of uncontrolled depression or anxiety. Neuro: Patient admits to tremors in her Right upper and lower extremities as perHPI but she denies headache, paresthesias or focal neurologic deficits. Allergy: Patient denies lip swelling, tongue swelling or urticaria. Hematology: Patient denies easy bleeding or easy bruisability. Endocrinology: Patient denies polyuria, polydipsia, polyphagia or heat/cold intolerance. 14 point ROS was otherwise negative except for positives noted above in HPI. Vital Signs Vital Signs Vital Signs: 11/29/24 15:58 11/29/24 17:55 11/29/24 19:00 Temperature 98.2 F Temperature Source Oral Pulse Rate 60 60 60 Respiratory Rate 18 17 Blood Pressure 229/78 H 200/67 H 196/70 H Blood Pressure Mean 128 111 112 Pulse Ox 96 94 Oxygen Delivery Method Room Air 11/29/24 21:09 Temperature Temperature Source Pulse Rate 68 Respiratory Rate 18 Blood Pressure 176/59 H Blood Pressure Mean 98 Pulse Ox 96 Oxygen Delivery Method Room Air Weight Weight: 251 lb 12.286 oz Body Mass Index (BMI) 41.8 Physical Exam Const alert, oriented x3, no apparent distress, average body habitus and healthy appearing General Appearance: cooperative HEENT normocephalic, head/scalp atraumatic, hearing grossly normal bilaterally and moist oral mucous membranes Eyes PERRL, EOMs intact bilaterally and conjunctivae normal Neck no lymphadenopathy, supple and no JVD Resp normal respiratory effort, no retractions, no use of accessory muscles and clearto auscultation bilaterally Cardio regular rate and regular rhythm GI normal to inspection, nondistended, normoactive bowel sounds, soft to palpation,non-tender and non-distended GI Narrative: Obese. Extremity normal to inspection, full ROM and no clubbing, cyanosis or edema Skin Skin Narrative: Patient has no evidence of rash, abscess, wounds or jaundice. Neuro oriented x3, CN's II-XII intact bilaterally, moves all extremities and no focal motor deficits Neuro Narrative: Intention tremor noted in the Right upper and lower extremity with patient otherwise neurologically intact. Sensorium / Orientation: awake, alert, oriented to person, oriented to place andoriented to time Speech: speech normal Psych affect normal Results Medical Records Data Attestation: I reviewed the patient's medical records Lab / Micro Data Attestation: I reviewed the patient's lab results. 11/29/24 16:33 11/29/24 16:33 Labs: Laboratory Results - last 24 hr 11/29/24 16:33: WBC 9.6, RBC 3.86 L, Hgb 11.6 L, Hct 34.5 L, MCV 89.4, MCH 30.1,MCHC 33.6, RDW Std Deviation 46.8 H, RDW Coeff of Chandu 14.4, Plt Count 201, MPV 10.2, Immature Gran % (Auto) 0.500, Neut % (Auto) 72.4 H, Lymph % (Auto) 11.5 L,Addison % (Auto) 12.1 H, Eos % (Auto) 2.9, Baso % (Auto) 0.6, Absolute Neuts (auto)7.0, Absolute Lymphs (auto) 1.10, Nucleated RBC % 0, Sodium 133, Potassium 5.0, Chloride 98, Carbon Dioxide 22.9, Anion Gap 12, BUN 38 H, Creatinine 1.11, EstimCreat Clear Calc 48.43 L, Est GFR (MDRD) Non-Af 49 L, BUN/Creatinine Ratio 34.3 H, Glucose 94, Calcium 8.9, Total Bilirubin 0.57, AST 29, ALT 37 H, Alkaline Phosphatase 63, Total Protein 6.3, Albumin 4.0, Globulin 2.4, Albumin/Globulin Ratio 1.7, Lipase 20, TSH 2.190, Urine Color Yellow, Urine Clarity Clear, Urine pH 6.0, Ur Specific [place] 1.010, Urine Protein Negative, Urine Glucose (UA) Normal, Urine Ketones Negative, Urine Occult Blood Negative, Urine Nitrite Negative, Urine Bilirubin Negative, Urine Urobilinogen Normal, Ur Leukocyte Esterase 500 H, Urine RBC 0 SEEN, Urine WBC 0- 5 SEEN, Ur Squamous Epith Cells 0-5 SEEN, Urine Bacteria 0 SEEN, Urine Mucus 0 SEEN Imaging Radiology Impression Brain CT 11/29/24 16:22 IMPRESSION: No acute intracranial abnormality. Reading Location: [id number] Assessment & Plan Assessment/Plan (1) Hypertensive emergency without congestive heart failure: (2) Tremor: (3) Paroxysmal atrial fibrillation: (4) TIA (transient ischemic attack): (5) Morbid obesity with BMI of 40.0-44.9, adult: PLAN: Plan 1. Highly elevated blood pressure of 229/78 mmHg present on admission consistent with suspected Hypertensive Emergency - Admit to PCU under observation status. Continue home regimen plus give IV hydralazine as needed for systolic blood pressure greater than 170 mmHg. Check echocardiogram to evaluate LVEF. Check carotid Doppler to evaluate for stenosis. Check MRI of brain to evaluate for possible CVA. Continue baby aspirin daily. Check TSH, B12, folate, A1c, lipid profile, SAM and UDS to further evaluate. 2. Right upper and lower extremity tremors complicating #1 - Check MRI of the brain without contrast to evaluate for possible CVA or other lesion that may explain her symptoms. PT/OT and Case Management consult treat on rounds in a.m.for further recommendations with help appreciated advance. 3. History of paroxysmal atrial fibrillation; on baby aspirin, diltiazem and amiodarone compounding #1 & #2 - Maintain home regimen as before. 4. History of TIA (2018) adding to the medical complexity of #1 - #3 - Noted with MRI pending as outlined in #2. 5. Morbid (class III) obesity; with BMI of 41.9 this admission plus JOSE adding to the burden of disease outlined from #1 - #4 - Weight loss will be recommended. Check TSH. Resume nocturnal CPAP. This complicates her case and may hamper recovery. 6. Essential hypertension; on losartan, hydralazine twice daily, spironolactoneand furosemide - Hold scheduled antihypertensives until CVA definitively ruled out on MRI. 7. Hyperlipidemia; on rosuvastatin - Resume statin and check Lipid Profile. 8. Hypothyroidism; on levothyroxine - Maintain on levothyroxine and check TSH. 9. History of SSS; s/p PPM (2021) - Noted. 10. History of pulmonary hypertension - Stable. 11. History of Right carotid bruit - Noted with carotid Doppler pending for #1. 12. Neuropathy; on gabapentin - Resume gabapentin as before. 13. Depression with anxiety; on paroxetine and lorazepam twice daily as needed - Current therapy to continue as previous. 14. GERD with history of GI bleed; on omeprazole plus sucralfate 3 times daily - Maintain PPI and sucralfate. 15. OA; on meloxicam - Continue meloxicam. 16. DVT prophylaxis - Enoxaparin 40 mg sq BID plus SCD's. Total time: Approximately (but not less than) 85 minutes. Charges/Coding Visit Charges OBSV E&M: 74579 Observ/hosp same date L3 11/30/24 0634 <Electronically signed by Tacho Davis DO> Cosigner Signature (if applicable): CC: Dr. Tacho Davis DO; Dr. Michael Puga DO~ Signed [facility] Work Phone: [phone] History and physical note [facility] Medical Records Department [address] [place] [address] H&P Exam - Hospitalist 11/29/242119 MR#: [id number] Acct: [id number] Name: MICHAEL MEIER Rep #:[id number] : 1940 84 From: Tacho Vanegas DO PCP: Dr. Michael Puga, DO Status:AD M CORBY [id number] - General General Date of Admission: 11/29/24 Date of Service: 11/29/24 Chief Complaint: Right Upper and Lower Extremity Tremors. HPI Narrative MICHAEL MEIER, is a 84 F with a past medical history of essential hypertension; on losartan, hydralazine twice daily, spironolactone and furosemide, hyperlipidemia; on rosuvastatin, hypothyroidism;on levothyroxine, history of paroxysmal atrial fibrillation; on baby aspirin, diltiazem and amiodarone, history of SSS; s/p PPM (2021), history of TIA (2018), morbid obesity; with BMI of 41.9 this admission, JOSE, history of pulmonary hypertension, history of Right carotid bruit, neuropathy; on gabapentin, depression with anxiety; on paroxetine and lorazepam twice daily as needed, GERDwith historyof GI bleed; on omeprazole plus sucralfate 3 times daily and OA; onmeloxicam who presents to [facility] ER complaining of Right upper and lower extremity tremors. Ms. Meier reports her symptoms began yesterday when she suddenly developed shaking in her Rightupper and lower extremities. She states the tremor is madeworse with standing but it does get better with rest with associated low back pain. Since yesterday she states it has been nearly constant soshe decided to come in for further evaluation and treatment. She denies recent trauma, injury or similar previous episodes. She also denies associated headache, paresthesia or other focal motor or sensory neurologic deficits. There was also no report of fever, chills, runny nose, sore throat, ear pain, chest pain, palpitations, heart racing, lower extremity edema, dysuria, hematuria or rash. She explained to the ER physician that she is concerned because she lives at home alone because she may fall so decision was made to contact the hospitalist service. In the ER she was noted to have a highly elevated blood pressure of 229/78 mmHg present on admission consistent with suspected Hypertensive Emergency complicated by new-onset Right upper and lower extremity tremors with a corresponding head CT without contrast that revealed no acute intracranial abnormality. She was then admitted to thePCU under observation status for ongoing care for state that is expected to be less than 2 midnights. 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 Right carotid bruit Pulmonary hypertension Obesity TIA (transient ischemic attack) (12/2018) GI bleed (2018) Essential (primary) hypertension Osteoarthritis Anxiety Daytime somnolence Dysmetabolic syndrome X Allergic rhinitis Malignant melanoma of skin of trunk, except scrotum Hyperlipidemia FH: sudden cardiac (SCD) Depression Paroxysmal atrial fibrillation Sick sinus syndrome Carotid artery disease Home Medications ?Medication ?Instructions ?Recorded ?Last Taken ?Type lorazepam 0.5 mg tablet 0.5 mg PO BID PRN PRN Anxiet y 05/13/16 Unknown History aspirin 81 mg tablet,delayed 81 mg PO QDAY heart healt h #90 tabs 12/27/18 Unknown Rx release (Adult Low Dose Aspirin) coenzyme Q10 100 mg capsule (Co 100 mg PO DAILY supple ment 01/23/20 Unknown History Q-10) rosuvastatin 10 mg tablet 10 mg PO DAILY cholesterol 0 01/23/20 Unknown History sucralfate 100 mg/mL oral 10 ml PO TID PRN digestion 0 11/25/21 Unknown History suspension cyclosporine 0.05 % eye drops in a 1 drp EACH EYE Q12H eye health 09/27/23 Unknown History dropperette (Restasis) albuterol sulfate 90 mcg/actuation 2 puff inhalation Q 6H PRN 10/02/23 Unknown Rx aerosol inhaler (ProAir HFA) shortness of breath or wh eezing #6.7 grams levothyroxine 50 mcg capsule 50 mcg PO QDAY 01/25/24 U nknown History spironolactone 25 mg tablet 25 mg PO DAILY #30 tabs Unknown Rx fluticasone propionate 110 1 inh inhalation Q12H 04/30 Unknown History mcg/actuation HFA aerosol inhaler meloxicam 15 mg tablet 15 mg PO DAILY 04/30/24 Unkn own History vitamin B complex (Balanced B-50 1 tab PO DAILY Unknown History tablet) diltiazem HCl 240 mg 240 mg PO QHS heart #90 caps 05/15/24 Unknown Rx capsule,extended release 24 hr hydralazine 50 mg tablet 50 mg PO BID #180 tabs 06/01 Unknown Rx furosemide 20 mg tablet 20 mg PO QDAY 07/06/24 Unkno wn History amiodarone 200 mg tablet 200 mg PO DAILY heart #90 ta bs 07/20/24 Unknown Rx losartan 100 mg tablet 100 mg PO DAILY blood pressu re #90 09/11/24 Unknown Rx tabs azelastine 0.05 % eye drops 1 drp ophthalmic (eye) BID PRN 11/02/24 Unknown History omeprazole 20 mg capsule,delayed 20 mg PO QDAY 5 Unknown History release paroxetine HCl 40 mg tablet 40 mg PO QDAY 11/02/24 Unk nown History gabapentin 100 mg capsule 100 mg PO DAILY neuropathy 0 11/29/24 Unknown History prednisone 10 mg tablet 10 mg PO DAILY 11/29/24 Unkn own History Allergy/AdvReac Type Severity Reaction Status Date / Time ciprofloxacin (From Cipro) Allergy Rash Verified 11/29/24 16:08 Penicillins (PCN) Allergy Hives Verified 11/29/24 16:08 Sulfa (Sulfonamide Allergy Hives Verified 11/29/24 16:08 Antibiotics) Beta-Blockers AdvReac Other Verified 11/29/24 16:08 (Beta-Adrenergic Bloc hydrocodone (From Vicodin) AdvReac Other Verified 11/29/24 16:08 lisinopril AdvReac cough Verified 11/29/24 16:08 meperidine (From Demerol) AdvReac Vomiting Verified 11/29/24 16:08 morphine AdvReac Other Verified 11/29/24 16:08 pravastatin AdvReac Other Verified 11/29/24 16:08 Family History Grandfather Myocardial infarction Sudden cardiac Father Myocardial infarction CAD (coronary artery disease) CHF (congestive heart failure) Mother Myocardial infarction CAD (coronary artery disease) A-fib Brother A-fib CHF (congestive heart failure) Brother Cancer Son Diabetes Son Hypertension Surgical History History of permanent cardiac pacemaker placement (06/09/21) History of esophagogastroduodenoscopy (EGD) (09/07/18) History of left heart catheterization (LHC) (05/2011) 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) History of total right knee replacement (TKR) (~08/2011) History of right hip replacement (~2003) History of cholecystectomy History of total left knee replacement (TKR) Social History housing: house Smoking Status: Never smoker alcohol intake: never substance use type: does not use caffeine: Yes what type of physical activity do you participate in: none seatbelt use: always ROS ROS Narrative Review of Systems: Constitutional: Patient denies fever or chills. Eyes: Patient denies changes in vision or discharge from eyes. ENT: Patient denies runny nose, sore throat or ear pain. Resp: Patient denies shortness of breath or cough. CV: Patient denies chest pain, palpitations, heart racing or lower extremity edema. GI: Patient denies abdominal pain, nausea, vomiting, diarrhea or constipation. : Patient denies dysuria or hematuria. MSK: Patient admits to back pain but she denies neck pain. Skin: Patient denies rash, abscess, wounds or jaundice. Psych: Patient denies symptoms of uncontrolled depression or anxiety. Neuro: Patient admits to tremors in her Right upper and lower extremities as perHPI but she denies headache, paresthesias or focal neurologic deficits. Allergy: Patient denies lip swelling, tongue swelling or urticaria. Hematology: Patient denies easy bleeding or easy bruisability. Endocrinology: Patient denies polyuria, polydipsia, polyphagia or heat/cold intolerance. 14 point ROS was otherwise negative except for positives noted above in HPI. Vital Signs Vital Signs Vital Signs: 11/29/24 15:58 11/29/24 17:55 11/29/24 19:00 Temperature 98.2 F Temperature Source Oral Pulse Rate 60 60 60 Respiratory Rate 18 17 Blood Pressure 229/78 H 200/67 H 196/70 H Blood Pressure Mean 128 111 112 Pulse Ox 96 94 Oxygen Delivery Method Room Air 11/29/24 21:09 Temperature Temperature Source Pulse Rate 68 Respiratory Rate 18 Blood Pressure 176/59 H Blood Pressure Mean 98 Pulse Ox 96 Oxygen Delivery Method Room Air Weight Weight: 251 lb 12.286 oz Body Mass Index (BMI) 41.8 Physical Exam Const alert, oriented x3, no apparent distress, average body habitus and healthy appearing General Appearance: cooperative HEENT normocephalic, head/scalp atraumatic, hearing grossly normal bilaterally and moist oral mucous membranes Eyes PERRL, EOMs intact bilaterally and conjunctivae normal Neck no lymphadenopathy, supple and no JVD Resp normal respiratory effort, no retractions, no use of accessory muscles and clearto auscultation bilaterally Cardio regular rate and regular rhythm GI normal to inspection, nondistended, normoactive bowel sounds, soft to palpation,non-tender and non-distended GI Narrative: Obese. Extremity normal to inspection, full ROM and no clubbing, cyanosis or edema Skin Skin Narrative: Patient has no evidence of rash, abscess, wounds or jaundice. Neuro oriented x3, CN's II-XII intact bilaterally, moves all extremities and no focal motor deficits Neuro Narrative: Intention tremor noted in the Right upper and lower extremity with patient otherwise neurologicallyintact. Sensorium / Orientation: awake, alert, oriented to person, oriented to place andoriented to time Speech: speech normal Psych affect normal Results Medical Records Data Attestation: I reviewed the patient's medical records Lab / Micro Data Attestation: I reviewed the patient's lab results. 11/29/24 16:33 11/29/24 16:33 Labs: Laboratory Results - last 24 hr 11/29/24 16:33: WBC 9.6, RBC 3.86 L, Hgb 11.6 L, Hct 34.5 L, MCV 89.4, MCH 30.1,MCHC 33.6, RDW Std Deviation 46.8 H, RDW Coeff of Chandu 14.4, Plt Count 201, MPV 10.2, Immature Gran % (Auto) 0.500, Neut% (Auto) 72.4 H, Lymph % (Auto) 11.5 L,Addison % (Auto) 12.1 H, Eos % (Auto) 2.9, Baso % (Auto) 0.6, Absolute Neuts (auto)7.0, Absolute Lymphs (auto) 1.10, Nucleated RBC % 0, Sodium 133, Potassium 5.0, Chloride 98, Carbon Dioxide 22.9, Anion Gap 12, BUN 38 H, Creatinine 1.11, EstimCreat Clear Calc 48.43 L, Est GFR (MDRD) Non-Af 49 L, BUN/Creatinine Ratio 34.3 H, Glucose 94, Calcium 8.9, Total Bilirubin 0.57, AST 29, ALT 37 H, Alkaline Phosphatase 63, Total Protein 6.3, Albumin 4.0, Globulin 2.4, Al bumin/Globulin Ratio 1.7, Lipase 20, TSH 2.190, Urine Color Yellow, Urine Clarity Clear, Urine pH 6.0, Ur Specific [place] 1.010, Urine Protein Negative, Urine Glucose (UA) Normal, Urine Ketones Negative, Urine Occult Blood Negative, Urine Nitrite Negative, Urine Bilirubin Negative, Urine Urobilinogen Normal, Ur Leukocyte Esterase 500 H, Urine RBC 0 SEEN, Urine WBC 0-5 SEEN, Ur Squamous Epith Cells 0-5 SEEN, Urine Bacteria 0 SEEN, Urine Mucus 0 SEEN Imaging Radiology Impression Brain CT 11/29/24 16:22 IMPRESSION: No acute intracranial abnormality. Reading Location: [id number] Assessment & Plan Assessment/Plan (1) Hypertensive emergency without congestive heart failure: (2) Tremor: (3) Paroxysmal atrial fibrillation: (4) TIA (transient ischemic attack): (5) Morbid obesity with BMI of 40.0-44.9, adult: PLAN: Plan 1. Highly elevated blood pressure of 229/78 mmHg present on admission consistent with suspected Hypertensive Emergency - Admit to PCU under observation status. Continue home regimen plus give IV hydralazine as needed for systolic blood pressure greater than 170 mmHg. Check echocardiogram to evaluate LVEF. Check carotid Doppler to evaluate for stenosis. Check MRI of brain to evaluate for possible CVA. Continue baby aspirin daily. Check TSH, B12, folate, A1c, lipid profile, SAM and UDS to furtherevaluate. 2. Right upper and lower extremity tremors complicating #1 - Check MRI of the brain without contrast to evaluate for possible CVA or other lesion that may explain her symptoms. PT/OT and Case Management consult treat on rounds in a.m.for further recommendations with help appreciated advance. 3. History of paroxysmal atrial fibrillation; on baby aspirin, diltiazem and amiodarone compounding#1 & #2 - Maintain home regimen as before. 4. History of TIA (2019) adding to the medical complexity of #1 - #3 - Noted with MRI pending as outlined in #2. 5. Morbid (class III) obesity; with BMI of 41.9 this admission plus JOSE adding to the burden of disease outlined from #1 - #4 - Weight loss will be recommended. Check TSH. Resume nocturnal CPAP. Thiscomplicates her case and may hamper recovery. 6. Essential hypertension; on losartan, hydralazine twice daily, spironolactoneand furosemide - Hold scheduled antihypertensives until CVA definitively ruled out on MRI. 7. Hyperlipidemia; on rosuvastatin - Resume statin and check Lipid Profile. 8. Hypothyroidism; on levothyroxine - Maintain on levothyroxine and check TSH. 9. History of SSS; s/p PPM (2021) - Noted. 10. History of pulmonary hypertension - Stable. 11. History of Right carotid bruit - Noted with carotid Doppler pending for #1. 12. Neuropathy; on gabapentin - Resume gabapentin as before. 13. Depression with anxiety; on paroxetine and lorazepam twice daily as needed - Current therapy tocontinue as previous. 14. GERD with history of GI bleed; on omeprazole plus sucralfate 3 times daily - Maintain PPI and sucralfate. 15. OA; on meloxicam - Continue meloxicam. 16. DVT prophylaxis - Enoxaparin 40 mg sq BID plus SCD's. Total time: Approximately (but not less than) 85 minutes. Charges/Coding Visit Charges OBSV E&M: 07206 Observ/hosp same date L3 11/30/24 0634 Cosigner Signature (if applicable): CC: Dr. Tacho Davis, ; Dr. Michael Puga, ~ Signed [facility]07-31-2025 Discharge summary Author Virgilbarb Tyler [facility] Note Date/Time November 30, 2024 1:01 am [facility] Medical Records Department [address] [place] [address] Emergency Department Summary 11/29/24 MR#: [id number] Acct: [id number] Name: MICHAEL MEIER Rep #:[id number] : 1940 84 From: Virgil Saldivar PCP: Dr. Michael Puga, Status:AD M CORBY Location: [place] [address] HPI History of Present Illness Chief Complaint: Weakness Informant: patient Onset/Context/Timing Onset: Yesterday Context: Sudden Onset Timing: Continuous Quality: Shaking Location: Right upper and lower extremities Worsened by: Standing Relieved by: Rest Narrative Narrative: Patient presents with tremors to her right upper and lower extremities that began yesterday. Patient states she has shaking in her right upper and lower extremity. Patient states it is worse with standing. Patient states it does get better with rest. Patient states that has been constant since yesterday. Patient denies any trauma or injury. Patient denies any headaches. Patient denies any paresthesias or weakness. Patient does admit to some low back pain. Patient denies any headaches. Patient denies any motor or sensory deficits. Patient is concerned because she lives at home alone and she is concerned that she may fall because of this. 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 Right carotid bruit Pulmonary hypertension Obesity TIA (transient ischemic attack) (12/2018) GI bleed (2018) Essential (primary) hypertension Osteoarthritis Anxiety Daytime somnolence Dysmetabolic syndrome X Allergic rhinitis Malignant melanoma of skin of trunk, except scrotum Hyperlipidemia FH: sudden cardiac (SCD) Depression Paroxysmal atrial fibrillation Sick sinus syndrome Carotid artery disease Home Medications ?Medication ?Instructions ?Recorded ?Last Taken ?Type lorazepam 0.5 mg tablet 0.5 mg PO BID PRN PRN Anxiet y 05/13/16 Unknown History aspirin 81 mg tablet,delayed 81 mg PO QDAY heart healt h #90 tabs 12/27/18 Unknown Rx release (Adult Low Dose Aspirin) coenzyme Q10 100 mg capsule (Co 100 mg PO DAILY supple ment 01/23/20 Unknown History Q-10) rosuvastatin 10 mg tablet 10 mg PO DAILY cholesterol 0 01/23/20 Unknown History sucralfate 100 mg/mL oral 10 ml PO TID PRN digestion 0 11/25/21 Unknown History suspension cyclosporine 0.05 % eye drops in a 1 drp EACH EYE Q12H eye health 09/27/23 Unknown History dropperette (Restasis) albuterol sulfate 90 mcg/actuation 2 puff inhalation Q 6H PRN 10/02/23 Unknown Rx aerosol inhaler (ProAir HFA) shortness of breath or wh eezing #6.7 grams levothyroxine 50 mcg capsule 50 mcg PO QDAY 01/25/24 U nknown History spironolactone 25 mg tablet 25 mg PO DAILY #30 tabs Unknown Rx fluticasone propionate 110 1 inh inhalation Q12H 04/30 Unknown History mcg/actuation HFA aerosol inhaler meloxicam 15 mg tablet 15 mg PO DAILY 04/30/24 Unkn own History vitamin B complex (Balanced B-50 1 tab PO DAILY Unknown History tablet) diltiazem HCl 240 mg 240 mg PO QHS heart #90 caps 05/15/24 Unknown Rx capsule,extended release 24 hr hydralazine 50 mg tablet 50 mg PO BID #180 tabs 06/01 Unknown Rx furosemide 20 mg tablet 20 mg PO QDAY 07/06/24 Unkno wn History amiodarone 200 mg tablet 200 mg PO DAILY heart #90 ta bs 07/20/24 Unknown Rx losartan 100 mg tablet 100 mg PO DAILY blood pressu re #90 09/11/24 Unknown Rx tabs azelastine 0.05 % eye drops 1 drp ophthalmic (eye) BID PRN 11/02/24 Unknown History omeprazole 20 mg capsule,delayed 20 mg PO QDAY 5 Unknown History release paroxetine HCl 40 mg tablet 40 mg PO QDAY 11/02/24 Unk nown History gabapentin 100 mg capsule mg PO 11/29/24 Unknown Histo ry prednisone 10 mg tablet 10 mg PO DAILY 11/29/24 Unkn own History Allergy/AdvReac Type Severity Reaction Status Date / Time ciprofloxacin (From Cipro) Allergy Rash Verified 11/29/24 16:08 Penicillins (PCN) Allergy Hives Verified 11/29/24 16:08 Sulfa (Sulfonamide Allergy Hives Verified 11/29/24 16:08 Antibiotics) Beta-Blockers AdvReac Other Verified 11/29/24 16:08 (Beta-Adrenergic Bloc hydrocodone (From Vicodin) AdvReac Other Verified 11/29/24 16:08 lisinopril AdvReac cough Verified 11/29/24 16:08 meperidine (From Demerol) AdvReac Vomiting Verified 11/29/24 16:08 morphine AdvReac Other Verified 11/29/24 16:08 pravastatin AdvReac Other Verified 11/29/24 16:08 Family History Grandfather Myocardial infarction Sudden cardiac Father Myocardial infarction CAD (coronary artery disease) CHF (congestive heart failure) Mother Myocardial infarction CAD (coronary artery disease) A-fib Brother A-fib CHF (congestive heart failure) Brother Cancer Son Diabetes Son Hypertension Surgical History History of permanent cardiac pacemaker placement (06/09/21) History of esophagogastroduodenoscopy (EGD) (09/07/18) History of left heart catheterization (LHC) (05/2011) 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) History of total right knee replacement (TKR) (~08/2011) History of right hip replacement (~2003) History of cholecystectomy History of total left knee replacement (TKR) Social History housing: house Smoking Status: Never smoker alcohol intake: never substance use type: does not use caffeine: Yes what type of physical activity do you participate in: none seatbelt use: always ROS ROS ED Constitutional Constitutional ED: Denies chills or fever(s) Eyes Eyes: Denies blurry vision or change in vision ENT ENT ED: Denies rhinorrhea or sore throat Cardiovascular Cardiovascular: Denies chest pain or palpitations Respiratory/Chest Respiratory/Chest: Denies cough or dyspnea Gastrointestinal Gastrointestinal: Denies nausea or vomiting Genitourinary Genitourinary ED: Denies dysuria or hematuria Musculoskeletal Musculoskeletal: Reports back pain; Denies neck pain Integumentary Denies abscess or rash Neurologic Neurologic: Denies headache(s) or weakness Allergic/Immunologic Allergic/Immunologic ED: Denies mouth swelling or urticaria EXAM Physical Exam Const Vital Signs: 11/29/24 15:58 11/29/24 17:55 11/29/24 19:00 Temperature 98.2 F Temperature Source Oral Pulse Rate 60 60 60 Respiratory Rate 18 17 Blood Pressure 229/78 H 200/67 H 196/70 H Blood Pressure Mean 128 111 112 Pulse Ox 96 94 Oxygen Delivery Method Room Air 11/29/24 21:09 Temperature Temperature Source Pulse Rate 68 Respiratory Rate 18 Blood Pressure 176/59 H Blood Pressure Mean 98 Pulse Ox 96 Oxygen Delivery Method Room Air Positive well nourished and well developed Constitutional Narrative: BMI is 41.9. General Appearance ED: well developed and NAD HEENT Reports moist mucous membranes Neck supple and no JVD Resp normal respiratory effort and clear to auscultation bilaterally Cardio regular rate and regular rhythm GI non-tender and non-distended Palpation: soft Extremity normal to inspection General Extremety ED: Negative for edema or tenderness General Extremity: Negative for edema Neuro oriented x3, CN's II-XII intact bilaterally and no sensory deficits noted Neuro Narrative: There is an intermittent tremor of the right upper and lower extremity. Sensorium / Orientation: alert Motor Exam: strength 5/5 throughout Psych mental status grossly normal Skin no rashes or lesions noted MDM MDM MDM Narrative Medical decision making narrative: Differential diagnosis includes electrolyte abnormality, dehydration, stroke, intracranial bleeding, hypertensive urgency, hypertensive emergency, essential tremor, hyperthyroidism, hypothyroidism, and electrolyte abnormality. CT scan of the brain will be obtained to assess for intracranial bleeding and stroke. CBC will be obtained to assess for leukocytosis and anemia. Comprehensive metabolic profile will be obtained to assess for hepatic function, renal function, and electrolyte abnormality. TSH will be obtained to assess for hyperthyroidism and hypothyroidism. Urinalysis will be obtained to assess for urinary tract infection and hematuria. History & Record Review Additional record(s) reviewed:: Prior inpatient record, Prior outpatient record,Prior ED visit and Prior labs Lab Data Attestation: I reviewed the patient's lab results. Lab results narrative: CBC was reviewed. There is a mild anemia with a hemoglobin of 11.6 and hematocrit 34.5. Comprehensive metabolic profile was reviewed. BUN was slightly elevated at 38 and creatinine was normal at 1.11. Lipase was reviewed and was normal at 20. TSH was reviewed and was normal at 2.19. Urinalysis was reviewed. Leukocyte esterase was 500. There is 0-5 white blood cells 0-5 epithelial cells and 0 bacteria noted. Labs: Laboratory Results - last 24 hr 11/29/24 16:33 WBC 9.6 RBC 3.86 L Hgb 11.6 L Hct 34.5 L MCV 89.4 MCH 30.1 MCHC 33.6 RDW Std Deviation 46.8 H RDW Coeff of Chandu 14.4 Plt Count 201 MPV 10.2 Immature Gran % (Auto) 0.500 Neut % (Auto) 72.4 H Lymph % (Auto) 11.5 L Addison % (Auto) 12.1 H Eos % (Auto) 2.9 Baso % (Auto) 0.6 Absolute Neuts (auto) 7.0 Absolute Lymphs (auto) 1.10 Nucleated RBC % 0 Sodium 133 Potassium 5.0 Chloride 98 Carbon Dioxide 22.9 Anion Gap 12 BUN 38 H Creatinine 1.11 Estim Creat Clear Calc 48.43 L Est GFR (MDRD) Non-Af 49 L BUN/Creatinine Ratio 34.3 H Glucose 94 Calcium 8.9 Total Bilirubin 0.57 AST 29 ALT 37 H Alkaline Phosphatase 63 Total Protein 6.3 Albumin 4.0 Globulin 2.4 Albumin/Globulin Ratio 1.7 Lipase 20 TSH 2.190 Urine Color Yellow Urine Clarity Clear Urine pH 6.0 Ur Specific [place] 1.010 Urine Protein Negative Urine Glucose (UA) Normal Urine Ketones Negative Urine Occult Blood Negative Urine Nitrite Negative Urine Bilirubin Negative Urine Urobilinogen Normal Ur Leukocyte Esterase 500 H Urine RBC 0 SEEN Urine WBC 0-5 SEEN Ur Squamous Epith Cells 0-5 SEEN Urine Bacteria 0 SEEN Urine Mucus 0 SEEN Radiography Diagnostic Testing: Clinical Impression(s) from Imaging Studies Brain CT 11/29/24 16:22 IMPRESSION: No acute intracranial abnormality. Reading Location: [facility] CT scan of the brain was obtained. There is no acute intracranial abnormality. This was interpreted by the radiologist and was also independently reviewed by myself. Management Discussion w/another healthcare provider: Hospitalist Treatment and Re-Evaluation :: Patient was given a dose of IV hydralazine. Patient's blood pressure improved after this to 176/59. Patient was advised of her findings. Patient attempted ambulation with a walker. Patient was very unsteady even with standing. Because of this, I recommended admission to the hospital. Case was discussed with the hospitalist. He will admit the patient for observation to PCU. Patient understood and was agreeable with the plan. All questions were answered. Discharge Plan Triage Chief Complaint: Weakness ED Provider: Virgil Tyler Dx/Rx/DC Orders Clinical Impression: Tremor, Essential (primary) hypertension, Inability to walk Prescriptions: No Action aspirin [Adult Low Dose Aspirin] 81 mg tablet,delayed release (DR/EC) 81 mg PO QDAY Qty: 90 3RF rosuvastatin 10 mg tablet 10 mg PO DAILY coenzyme Q10 [Co Q-10] 100 mg capsule 100 mg PO DAILY sucralfate 100 mg/mL suspension 10 ml PO TID PRN (Reason: digestion) Patient Comments: TAKE 10 ML BY MOUTH 4 TIMES DAILY levothyroxine 50 mcg capsule 50 mcg PO QDAY spironolactone 25 mg tablet 25 mg PO DAILY Qty: 30 11RF hydralazine 50 mg tablet 50 mg PO BID Qty: 180 3RF omeprazole 20 mg capsule,delayed release(DR/EC) 20 mg PO QDAY paroxetine HCl 40 mg tablet 40 mg PO QDAY lorazepam 0.5 MG tablet 0.5 mg PO BID PRN PRN (Reason: Anxiety) cyclosporine [Restasis] 0.05 % dropperette 1 drp EACH EYE Q12H albuterol sulfate [ProAir HFA] 90 mcg/actuation HFA aerosol inhaler 2 puff inhalation Q6H PRN (Reason: shortness of breath or wheezing) Qty: 6.7 0RF vitamin B complex [Balanced B-50] Tablet 1 tab PO DAILY fluticasone propionate 110 mcg/actuation HFA aerosol inhaler 1 inh inhalation Q12H meloxicam 15 mg tablet 15 mg PO DAILY azelastine 0.05 % drops 1 drp ophthalmic (eye) BID PRN prednisone 10 mg tablet 10 mg PO DAILY gabapentin 100 mg capsule PO diltiazem HCl 240 mg capsule,extended release 24hr 240 mg PO QHS Qty: 90 3RF furosemide 20 mg tablet 20 mg PO QDAY amiodarone 200 mg tablet 200 mg PO DAILY Qty: 90 3RF losartan 100 mg tablet 100 mg PO DAILY Qty: 90 3RF Primary Care Provider: Michael Puga Referrals: Michael Puga DO [Primary Care Provider] - Print Language: Lithuanian Disposition Disposition: Acute Care Hospital [facility] What to do if you have Problems For any increased pain, shortness of breath, bleeding, nausea or vomiting, chestpain, or any unexpected problems, contact your Primary Care Provider. Call [facility] ([phone]) or report to the closest Emergency Room. Call 911 if necessary. 11/30/24 0101 <Electronically signed by Virgil Schwiger DO> Cosigner Signature (if applicable): CC: Dr. Michael Puga DO ~ Signed [facility] Work Phone: [phone] Discharge summary [facility] System Medical Records Department [address] [place] [address] Emergency Department Summary 11/29/24 MR#: [id number] Acct: [id number] Name: MICHAEL MEIER Rep #:[id number] : 1940 84 From: Virgil Saldivar PCP: Dr. Michael Puga DO Status:AD M CORBY Location: [place] [address] HPI History of Present Illness Chief Complaint: Weakness Informant: patient Onset/Context/Timing Onset: Yesterday Context: Sudden Onset Timing: Continuous Quality: Shaking Location: Right upper and lower extremities Worsened by: Standing Relieved by: Rest Narrative Narrative: Patient presents with tremors to her right upper and lower extremities that began yesterday. Patient states she has shaking in her right upper and lower extremity. Patient states it is worse with standing. Patient states it does get better with rest. Patient states that has been constant since yesterday. Patient denies any trauma or injury. Patient denies any headaches. Patient denies any paresthesias or weakness. Patient does admit to some low back pain. Patient denies any headaches. Patient denies any motor or sensory deficits. Patient is concerned because she lives at home alone and she isconcerned that she may fall because of this. 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 Right carotid bruit Pulmonary hypertension Obesity TIA (transient ischemic attack) (12/2018) GI bleed (2018) Essential (primary) hypertension Osteoarthritis Anxiety Daytime somnolence Dysmetabolic syndrome X Allergic rhinitis Malignant melanoma of skin of trunk, except scrotum Hyperlipidemia FH: sudden cardiac (SCD) Depression Paroxysmal atrial fibrillation Sick sinus syndrome Carotid artery disease Home Medications ?Medication ?Instructions ?Recorded ?Last Taken ?Type lorazepam 0.5 mg tablet 0.5 mg PO BID PRN PRN Anxiet y 05/13/16 Unknown History aspirin 81 mg tablet,delayed 81 mg PO QDAY heart healt h #90 tabs 12/27/18 Unknown Rx release (Adult Low Dose Aspirin) coenzyme Q10 100 mg capsule (Co 100 mg PO DAILY supple ment 01/23/20 Unknown History Q-10) rosuvastatin 10 mg tablet 10 mg PO DAILY cholesterol 0 01/23/20 Unknown History sucralfate 100 mg/mL oral 10 ml PO TID PRN digestion 0 11/25/21 Unknown History suspension cyclosporine 0.05 % eye drops in a 1 drp EACH EYE Q12H eye health 09/27/23 Unknown History dropperette (Restasis) albuterol sulfate 90 mcg/actuation 2 puff inhalation Q 6H PRN 10/02/23 Unknown Rx aerosol inhaler (ProAir HFA) shortness of breath or wh eezing #6.7 grams levothyroxine 50 mcg capsule 50 mcg PO QDAY 01/25/24 U nknown History spironolactone 25 mg tablet 25 mg PO DAILY #30 tabs Unknown Rx fluticasone propionate 110 1 inh inhalation Q12H 04/30 Unknown History mcg/actuation HFA aerosol inhaler meloxicam 15 mg tablet 15 mg PO DAILY 04/30/24 Unkn own History vitamin B complex (Balanced B-50 1 tab PO DAILY Unknown History tablet) diltiazem HCl 240 mg 240 mg PO QHS heart #90 caps 05/15/24 Unknown Rx capsule,extended release 24 hr hydralazine 50 mg tablet 50 mg PO BID #180 tabs 06/01 Unknown Rx furosemide 20 mg tablet 20 mg PO QDAY 07/06/24 Unkno wn History amiodarone 200 mg tablet 200 mg PO DAILY heart #90 ta bs 07/20/24 Unknown Rx losartan 100 mg tablet 100 mg PO DAILY blood pressu re #90 09/11/24 Unknown Rx tabs azelastine 0.05 % eye drops 1 drp ophthalmic (eye) BID PRN 11/02/24 Unknown History omeprazole 20 mg capsule,delayed 20 mg PO QDAY 5 Unknown History release paroxetine HCl 40 mg tablet 40 mg PO QDAY 11/02/24 Unk nown History gabapentin 100 mg capsule mg PO 11/29/24 Unknown Histo ry prednisone 10 mg tablet 10 mg PO DAILY 11/29/24 Unkn own History Allergy/AdvReac Type Severity Reaction Status Date / Time ciprofloxacin (From Cipro) Allergy Rash Verified 11/29/24 16:08 Penicillins (PCN) Allergy Hives Verified 11/29/24 16:08 Sulfa (Sulfonamide Allergy Hives Verified 11/29/24 16:08 Antibiotics) Beta-Blockers AdvReac Other Verified 11/29/24 16:08 (Beta-Adrenergic Bloc hydrocodone (From Vicodin) AdvReac Other Verified 11/29/24 16:08 lisinopril AdvReac cough Verified 11/29/24 16:08 meperidine (From Demerol) AdvReac Vomiting Verified 11/29/24 16:08 morphine AdvReac Other Verified 11/29/24 16:08 pravastatin AdvReac Other Verified 11/29/24 16:08 Family History Grandfather Myocardial infarction Sudden cardiac Father Myocardial infarction CAD (coronary artery disease) CHF (congestive heart failure) Mother Myocardial infarction CAD (coronary artery disease) A-fib Brother A-fib CHF (congestive heart failure) Brother Cancer Son Diabetes Son Hypertension Surgical History History of permanent cardiac pacemaker placement (06/09/21) History of esophagogastroduodenoscopy (EGD) (09/07/18) History of left heart catheterization (LHC) (05/2011) 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) History of total right knee replacement (TKR) (~08/2011) History of right hip replacement (~2003) History of cholecystectomy History of total left knee replacement (TKR) Social History housing: house Smoking Status: Never smoker alcohol intake: never substance use type: does not use caffeine: Yes what type of physical activity do you participate in: none seatbelt use: always ROS ROS ED Constitutional Constitutional ED: Denies chills or fever(s) Eyes Eyes: Denies blurry vision or change in vision ENT ENT ED: Denies rhinorrhea or sore throat Cardiovascular Cardiovascular: Denies chest pain or palpitations Respiratory/Chest Respiratory/Chest: Denies cough or dyspnea Gastrointestinal Gastrointestinal: Denies nausea or vomiting Genitourinary Genitourinary ED: Denies dysuria or hematuria Musculoskeletal Musculoskeletal: Reports back pain; Denies neck pain Integumentary Denies abscess or rash Neurologic Neurologic: Denies headache(s) or weakness Allergic/Immunologic Allergic/Immunologic ED: Denies mouth swelling or urticaria EXAM Physical Exam Const Vital Signs: 11/29/24 15:58 11/29/24 17:55 11/29/24 19:00 Temperature 98.2 F Temperature Source Oral Pulse Rate 60 60 60 Respiratory Rate 18 17 Blood Pressure 229/78 H 200/67 H 196/70 H Blood Pressure Mean 128 111 112 Pulse Ox 96 94 Oxygen Delivery Method Room Air 11/29/24 21:09 Temperature Temperature Source Pulse Rate 68 Respiratory Rate 18 Blood Pressure 176/59 H Blood Pressure Mean 98 Pulse Ox 96 Oxygen Delivery Method Room Air Positive well nourished and well developed Constitutional Narrative: BMI is 41.9. General Appearance ED: well developed and NAD HEENT Reports moist mucous membranes Neck supple and no JVD Resp normal respiratory effort and clear to auscultation bilaterally Cardio regular rate and regular rhythm GI non-tender and non-distended Palpation: soft Extremity normal to inspection General Extremety ED: Negative for edema or tenderness General Extremity: Negative for edema Neuro oriented x3, CN's II-XII intact bilaterally and no sensory deficits noted Neuro Narrative: There is an intermittent tremor of the right upper and lower extremity. Sensorium / Orientation: alert Motor Exam: strength 5/5 throughout Psych mental status grossly normal Skin no rashes or lesions noted MDM MDM MDM Narrative Medical decision making narrative: Differential diagnosis includes electrolyte abnormality, dehydration, stroke, intracranial bleeding, hypertensive urgency, hypertensive emergency, essential tremor, hyperthyroidism, hypothyroidism, and electrolyte abnormality. CT scan of the brain will be obtained to assess for intracranial bleeding and stroke. CBC will be obtained to assess for leukocytosis and anemia. Comprehensive metabolic profile will be obtained to assess for hepatic function, renal function, and electrolyte abnormality. TSH will be obtained to assess for hyperthyroidism and hypothyroidism. Urinalysis will be obtained to assess for urinary tract infection and hematuria. History & Record Review Additional record(s) reviewed:: Prior inpatient record, Prior outpatient record,Prior ED visit and Prior labs Lab Data Attestation: I reviewed the patient's lab results. Lab results narrative: CBC was reviewed. There is a mild anemia with a hemoglobin of 11.6 and hematocrit 34.5. Comprehensive metabolic profile was reviewed. BUN was slightly elevated at 38 and creatinine was normal at 1.11. Lipase was reviewed and was normal at 20. TSH was reviewed and was normal at 2.19. Urinalysis was reviewed. Leukocyte esterase was 500. There is 0-5 white blood cells 0-5 epithelial cells and 0 bacteria noted. Labs: Laboratory Results - last 24 hr 11/29/24 16:33 WBC 9.6 RBC 3.86 L Hgb 11.6 L Hct 34.5 L MCV 89.4 MCH 30.1 MCHC 33.6 RDW Std Deviation 46.8 H RDW Coeff of Chandu 14.4 Plt Count 201 MPV 10.2 Immature Gran % (Auto) 0.500 Neut % (Auto) 72.4 H Lymph % (Auto) 11.5 L Addison % (Auto) 12.1 H Eos % (Auto) 2.9 Baso % (Auto) 0.6 Absolute Neuts (auto) 7.0 Absolute Lymphs (auto) 1.10 Nucleated RBC % 0 Sodium 133 Potassium 5.0 Chloride 98 Carbon Dioxide 22.9 Anion Gap 12 BUN 38 H Creatinine 1.11 Estim Creat Clear Calc 48.43 L Est GFR (MDRD) Non-Af 49 L BUN/Creatinine Ratio 34.3 H Glucose 94 Calcium 8.9 Total Bilirubin 0.57 AST 29 ALT 37 H Alkaline Phosphatase 63 Total Protein 6.3 Albumin 4.0 Globulin 2.4 Albumin/Globulin Ratio 1.7 Lipase 20 TSH 2.190 Urine Color Yellow Urine Clarity Clear Urine pH 6.0 Ur Specific [place] 1.010 Urine Protein Negative Urine Glucose (UA) Normal Urine Ketones Negative Urine Occult Blood Negative Urine Nitrite Negative Urine Bilirubin Negative Urine Urobilinogen Normal Ur Leukocyte Esterase 500 H Urine RBC 0 SEEN Urine WBC 0-5 SEEN Ur Squamous Epith Cells 0-5 SEEN Urine Bacteria 0 SEEN Urine Mucus 0 SEEN Radiography Diagnostic Testing: Clinical Impression(s) from Imaging Studies Brain CT 11/29/24 16:22 IMPRESSION: No acute intracranial abnormality. Reading Location: [facility] CT scan of the brain was obtained. There is no acute intracranial abnormality. This was interpretedby the radiologist and was also independently reviewed by myself. Management Discussion w/another healthcare provider: Hospitalist Treatment and Re-Evaluation :: Patient was given a dose of IV hydralazine. Patient's blood pressure improved after this to 176/59.Patient was advised of her findings. Patient attempted ambulation with a walker. Patient was very unsteady even with standing. Because of this, I recommended admission to the hospital. Case was discussed with the hospitalist. He will admit the patient for observation to PCU. Patient understood and was agreeable with the plan. All questions were answered. Discharge Plan Triage Chief Complaint: Weakness ED Provider: Virgil Tyler Dx/Rx/DC Orders Clinical Impression: Tremor, Essential (primary) hypertension, Inability to walk Prescriptions: No Action aspirin [Adult Low Dose Aspirin] 81 mg tablet,delayed release (DR/EC) 81 mg PO QDAY Qty: 90 3RF rosuvastatin 10 mg tablet 10 mg PO DAILY coenzyme Q10 [Co Q-10] 100 mg capsule 100 mg PO DAILY sucralfate 100 mg/mL suspension 10 ml PO TID PRN (Reason: digestion) Patient Comments: TAKE 10 ML BY MOUTH 4 TIMES DAILY levothyroxine 50 mcg capsule 50 mcg PO QDAY spironolactone 25 mg tablet 25 mg PO DAILY Qty: 30 11RF hydralazine 50 mg tablet 50 mg PO BID Qty: 180 3RF omeprazole 20 mg capsule,delayed release(DR/EC) 20 mg PO QDAY paroxetine HCl 40 mg tablet 40 mg PO QDAY lorazepam 0.5 MG tablet 0.5 mg PO BID PRN PRN (Reason: Anxiety) cyclosporine [Restasis] 0.05 % dropperette 1 drp EACH EYE Q12H albuterol sulfate [ProAir HFA] 90 mcg/actuation HFA aerosol inhaler 2 puff inhalation Q6H PRN (Reason: shortness of breath or wheezing) Qty: 6.7 0RF vitamin B complex [Balanced B-50] Tablet 1 tab PO DAILY fluticasone propionate 110 mcg/actuation HFA aerosol inhaler 1 inh inhalation Q12H meloxicam 15 mg tablet 15 mg PO DAILY azelastine 0.05 % drops 1 drp ophthalmic (eye) BID PRN prednisone 10 mg tablet 10 mg PO DAILY gabapentin 100 mg capsule PO diltiazem HCl 240 mg capsule,extended release 24hr 240 mg PO QHS Qty: 90 3RF furosemide 20 mg tablet 20 mg PO QDAY amiodarone 200 mg tablet 200 mg PO DAILY Qty: 90 3RF losartan 100 mg tablet 100 mg PO DAILY Qty: 90 3RF Primary Care Provider: Michael Puga Referrals: Michael Puga DO [Primary Care Provider] - Print Language: Lithuanian Disposition Disposition: Acute Care Hospital [facility] What to do if you have Problems For any increased pain, shortness of breath, bleeding, nausea or vomiting, chestpain, or any unexpected problems, contact your Primary Care Provider. Call [facility] ([phone]) or report tothe closest Emergency Room. Call 911 if necessary. 11/30/24 0101 Cosigner Signature (if applicable): CC: Dr. Michael Puga DO ~ Signed [facility]07-30-2025 Radiology Diagnostic study note [facility] [address] [place] [address] Brain/Head without Contrast MR#: [id number] Acct: [id number] Name: MICHAEL MEIER Rep #: [id number] : 1940 F 84 From: Nelson Chávez MD PCP: Dr. Michael Puga DO Status: RE G ER Study:Brain/Head without Contrast Date of Exa m: 11/29/24 Exam# [id number] Ordering Dr: Virgil Tyler DO PROCEDURE: CT BRAIN/HEAD WITHOUT CONTRAST 11/29/2024 REASON FOR EXAM: TREMOR TECHNIQUE: CT BRAIN/HEAD WITHOUT CONTRAST. Coronal and Sagittal reconstruction series wereprovided. One or more dose reduction techniques were used (e.g., Automated exposure control, adjustment of the mA and/or kV according to patient size, use of iterative reconstruction technique. RADIATION DOSE SUMMARY: CTDlvol: 47.06 mGy DLP: 890.33 mGycm COMPARISON: 12/26/2021 FINDINGS: No acute intracranial hemorrhage, extra-axial collection, mass effect or evidence of acute infarct.Mild age-appropriate generalized brain parenchymal volume loss and chronic microangiopathic changes. Absent [place] ocular lenses. Intact skull base and calvarium. Clear sinuses and mastoids. CT/Brain/Head without Contrast IMPRESSION: No acute intracranial abnormality. Reading Location: [id number] CC: Dr. Virgil Tyler DO; Dr. Michael Puga DO ~ Bulk Tank Driver: Signed [facility]07-28-2025 Telephone encounter Note* Telephone Encounter - Yvonne Leiva - 11/27/2024 12:10 PM EDT Prescription Refill Information The patient has [...] Yvonne Gomez November 27, 2024 12:12 PM [facility]07-28-2025 Miscellaneous Notes* Telephone Encounter - Yvonne Leiva - 11/27/2024 12:10 PM EDT Prescription Refill Information The patient has [...] 27, 2024 12:12 PM documented in [facility] encounterK[facility]25 Telephone encounter Note * Telephone Encounter - Amanda Pratt RN - 11/13/2024 8:48 AM EDT Call placed to patient and notified of below with verbalized understanding. Amanda Pratt RN [facility]07-14-2025 Miscellaneous Notes* Telephone Encounter - Amanda Pratt RN - 11/13/2024 8:48 AM EDT Call placed to patient and notified of below with verbalized understanding. Amanda Pratt RN * Telephone Encounter - Michael Puga DO - 11/13/2024 6:55 AM EDT Please have her start on gabapentin 100 mg in the evening daily x 1 week then increase to 200 mg inthe evening daily x 1 week then can [...] evening daily Authorizing Provider: MICHAEL PUGA DO * Telephone Encounter - Amanda Pratt RN - 11/10/2024 2:41 PM EDT Kell with [facility] calls to let provider know [...] able. Amanda Pratt RN documented in this encounterK[facility]07-[facility]-2025 Telephone encounter Note * Telephone Encounter - Michael Puga DO - 11/13/2024 6:55 AM EDT Please have her start on gabapentin 100 mg in the evening daily x 1 week then increase to 200 mg inthe evening daily x 1 week then can increase to 300 mg in the evening daily. If doing well on this dose, then let me know and I can change rx to 300 mg capsule/tablet Mcihael Puga DO The following approved medication requests have been transmitted electronically. Requested Prescriptions Signed Prescriptions Disp Refills gabapentin (NEURONTIN) 100 mg capsule 60 capsule 2 Sig: take 100 mg in the evening daily x 1 week then increase to 200 mg in the evening daily x 1 week then can increase to 300 mg in the evening daily Authorizing Provider: MICHAEL PUGA DO [facility]07-12-2025 Telephone encounter Note* Telephone Encounter - Sherry Layne - 11/11/2024 10:43 AM EDT Prescription Refill Information The patient [...] Sherry Layne November 11, 2024 10:43 AM [facility]07-12-2025 Miscellaneous Notes* Telephone Encounter - Sherry Layne - 11/11/2024 10:43 AM EDT Prescription Refill Information The patient [...] TWICE DAILY NEEDED FOR ANXIETY ATTACK Sherry Wilderstrom November 11, 2024 10:43 AM documented in this encounterK[facility]07-[facility]-2025 Telephone encounter Note * Telephone Encounter - Amanda Pratt RN - 11/10/2024 2:41 PM EDT Kell with [facility] calls to let provider know [...] will respond once able. Amanda Pratt RN [facility]07-03-2025 Evaluation note* Diagnosis Onset Date Resolution Status Admit Date WELCH (dyspnea on exertion) acute November 02, 2024 9:16am MCC current use of amiodarone acute November 02, 2024 9:16am Pulmonary hypertension acute Ju ly 2024 9:16am Essential (primary) hypertension chronic November 02, 2024 9:16am History of permanent cardiac pacemaker placement June 09, 2021 chronic J silvia 2024 9:16am Paroxysmal atrial fibrillation chronic November 02, 2024 9:16am [facility] Work Phone: 1(697) 519-727707-03-2025 Evaluation note* Diagnosis Onset Date Resolution Status Admit Date WELCH (dyspnea on exertion) acute November 02, 2024 9:16am MCC current use of amiodarone acute November 02, 2024 9:16am Pulmonary hypertension acute ly 2024 9:16am Essential (primary) hypertension chronic November 02, 2024 9:16am History of permanent cardiac pacemaker placement June 09, 2021 chronic November 02 9:16am Paroxysmal atrial fibrillation chronic November 02, 2024 9:16am Hypertensive emergency without congestive heart failure acute November 29, 2024 9:39pm Morbid obesity with BMI of 40.0-44.9, adult acute November 29, 2024 9:39pm Tremor acute November 29 9:39pm Paroxysmal atrial fibrillation chronic November 29, 2024 9:39pm TIA (transient ischemic attack) December, suspected November 29, 2024 9:39pm [facility] Work Phone: 1(363) 204-354107-03-2025 Evaluation note* Diagnosis Onset Date Resolution Status Admit Date WELCH (dyspnea on exertion) acute November 02, 2024 9:16am 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 acute November 02, 2024 9:16am Pulmonary hypertension acute Ju ly 2024 9:16am Essential (primary) hypertension chronic November 02, 2024 9:16am History of permanent cardiac pacemaker placement June 09, 2021 chronic November 02 9:16am Paroxysmal atrial fibrillation chronic November 02, 2024 9:16am Hypertensive emergency without congestive heart failure acute November 29, 2024 9:39pm Hypertensive urgency acute November 29, 2024 9:39pm Morbid obesity with BMI of 40.0-44.9, adult acute November 29, 2024 9:39pm Tremor acute November 29 9:39pm Paroxysmal atrial fibrillation chronic November 29, 2024 9:39pm TIA (transient ischemic attack) December, suspected November 29, 2024 9:39pm [facility] Work Phone: 1(941) 878-707507-02-2025 Telephone encounter Note* Telephone Encounter - Marisol Cano LPN - 11/01/2024 12:48 PM EDT Called spoke with pt she states tomorrow has a appointment with heart doctor then few days with lung doctor she states if does not get answers from them she will make appointment then and come in. [facility]07-02-2025 Miscellaneous Notes* Telephone Encounter - Marisol Cano [...] as mentioned below. Thank you, Key Portillo APRN.CARMELINA * Telephone Encounter - Key Portillo APRN.CNP - 11/01/2024 9:22 AM EDT ----- Message from Sarah Merchant PT sent at 10/27/2024 6:59 PM EDT ----- Hi Dr Puga, We're seeing Michael for PT (she was referred by [facility]) and we've also seen her here inthe past for ortho/mobility issues. She's been reporting increased Shortness of Breath with minimalactivity which I definitely noticed today (I encouraged her to go to ER prn but she doesn't think it's necessary). She's also reporting increased low back pain (mostly with standing & walking). She has f/u appointments with her career center advisor & window repairer next month but I think she needs to see someone soon for the Shortness of Breath. I also think a spine/pain mgmt consult would be a good idea for the chronic/worsening low back pain. Thanks, Sarah Merchant PT documented in this encounterKet[facility]07-02-2025 Telephone encounter Note * Telephone Encounter - Key Portillo APRN.CNP - 11/01/2024 9:22 AM EDT Please see if patient is willing to make appointment due to Shortness of Breath as mentioned below. Thank you, Key Portillo APRN.STEREOPTIC PROJECTION TOPOGRAPHER [facility]07-02-2025 Telephone encounter Note* Telephone Encounter - Key Portillo APRN.CNP - 11/01/2024 9:22 AM EDT ----- Message from Sarah Merchant PT sent at 10/27/2024 6:59 PM EDT ----- Hi Dr Puga, We're seeing Michael for PT (she was referred by [facility]) and we've also seen her here inthe past for ortho/mobility issues. She's been reporting increased Shortness of Breath with minimalactivity which I definitely noticed today (I encouraged her to go to ER prn but she doesn't think it's necessary). She's also reporting increased low back pain (mostly with standing & walking). She has f/u appointments with her career center advisor & window repairer next month but I think she needs to see someone soon for the Shortness of Breath. I also think a spine/pain mgmt consult would be a good idea for the chronic/worsening low back pain. Thanks, Sarah Merchant PT [facility]07-01-2025 Radiology Diagnostic study note [facility] [address] [place], [place] [address] Chest PA and Lateral MR#: [id number] Acct: [id number] Name: MICHAEL MEIER Rep #: [id number] : 1940 F 84 From: Chris Bradley MD PCP: Dr. Michael Puga DO Status: RE G CLI Study:Chest PA and Lateral Date of Exam: 10/31/24 Exam# [id number] Ordering Dr: Anabel Roberson PA PROCEDURE: CHEST [...] pulmonary process, no interval change Reading Location: [id number] CC: Dr. Michael Puga DO; NIDA Katz ~ Bulk Tank Driver: Signed [facility]06-27-2025 NoteHNO ID: [id number] Author: SARAH MERCHANT PT Service: ? Author [...] back brace etc. she's never seen a health care specialist, only ortho for hips. she also reports 10# weight gain over past 2 months due to steroids. has has f/u with window repairer end of October (which she may try to move up) career center advisor in mid October, PCP in December. she [...] Session Stop Time : 1331 Sarah Merchant [facility]06-27-2025 History of Present illness Narrative* Sarah Merchant, [...] back brace etc. she's never seen a health care specialist, only ortho for hips. she also reports 10# weight gain over past 2 months due to steroids. has has f/u with window repairer end of October (which she may try to move up) career center advisor in mid October, PCP in December. she recently got a lightweight rollator which is easier to fold etc but she still has trouble getting it in & out of her car. she typically has freinds go with her to Dr gavin & roquehelp her walk in to office with cane [...] bad), discussed plans for f/u with Sofia Yee PT to consult with PCP, nurse Skilled [...] 1331 Sarah Merchant PT documented in this encounterK[facility]06-26-2025 Telephone encounter Note * Telephone Encounter - July Marcano RN - 10/26/2024 8:39 AM EDT Pt called and is notified of providers message and instructions. Pt voices understanding, she states she will add the Tylenol. July Marcano RN [facility]06-26-2025 Miscellaneous Notes* Telephone Encounter - July Marcano RN - 10/26/2024 8:39 AM EDT Pt called and is notified of providers message and instructions. Pt voices understanding, she states she will add the Tylenol. July Marcano RN * Telephone Encounter - Michael Puga DO - 10/25/2024 10:09 PM EDT No this [...] advise. Tameka Marin RN documented in this encounterKettering [facility]06-25-2025 Telephone encounter Note * Telephone Encounter - Michael Puga DO - 10/25/2024 10:09 PM EDT No this dose can't be increased. We can consider changing the meloxicam to an alternative such as Celebrex 100 mg twice a day with food as needed. Or she can add on 500 mg of Tylenol every 6 hours for pain Michael Puga DO [facility]06-25-2025 Telephone encounter Note* Telephone Encounter - Tameka [...] short term. Please advise. Tameka Marin RN [facility]06-09-2025 NoteHNO ID: [id number] Author: JOY SUN PTA Service: ? Author Type: Telephone Lineman Type: Progress Notes Filed: 10/09/2024 13:37 Note [...] 8 UE 8 lvl 2 6 minutes STEAM DRIER TENDER in constant attendence assessing current status reviewing [...] Session Stop Time : 1328 Joy Sun [facility] History of Present illness Narrative* Joy Sun, [facility] - 10/09/2024 1:34 PM EDT Episode Visit [...] 8 UE 8 lvl 2 6 minutes STEAM DRIER TENDER in constant attendence assessing current status reviewingHEP [...] 1328 Joy Sun PTA documented in this encounterK[facility]06-02-2025 NoteHNO ID: [id number] Author: PJ BLEDSOE PT Service: ? Author [...] sets 9: standing at rollator b ue plastic top assembler slight march in place r to l to r x 5 then b heel raises x 5 x 3 sets 10: standing wt shifts b ue plastic top assembler at rollator wt shift r l lat [...] Session Stop Time : 1530 Pj Bledsoe [facility]06-02-2025 History of Present illness Narrative* Pj [...] sets 9: standing at rollator b ue plastic top assembler slight march in place r to l to r x 5 then b heel raises x 5 x 3 sets 10: standing wt shifts b ue plastic top assembler at rollator wt shift r l lat [...] 1530 Pj Bledsoe PT documented in this encounterKettering [facility]05-29-2025 Telephone encounter Note * Telephone Encounter - Marisol Cano LPN - 09/28/2024 4:00 PM EDT Spoke with Kell gave information provided. She voices understanding. She will have pt call in for her appointment she does not know pts schedule. [facility]05-29-2025 Miscellaneous Notes* Telephone Encounter - Marisol Cano LPN - 09/28/2024 4:00 PM EDT Spoke with Kell gave information provided. She voices understanding. She will have pt call in for her appointment she does not know pts schedule. * Telephone Encounter - Key Portillo APRN.CARMELINA - 09/28/2024 3:01 PM EDT Pt needs appointment to assess this. This was not mentioned in recent office visit 1 month ago. Thank you, Key Portillo APRN.STEREOPTIC PROJECTION TOPOGRAPHER * Telephone Encounter - Nadine Colon LPN - 09/28/2024 1:42 PM EDT Kell from [facility] calling to report patient tremor is [...] the office. Please advise documented in this encounterKettering Health [facility]05-29-2025 NoteHNO ID: [id number] Author: SARAH MERCHANT, PT Service: ? Author [...] increase T-score by a minimum 5 points. [place] in home exercise program. Patient will demonstrate [...] Planned: 12 Planned Treatment Interventions: Therapeutic exercise (95163), Neuromuscular re-education (83835), Therapeutic activities (61874), Self-group home management (05552), Gait Training (53302), Patient/Family/Caregiver Education, General Conditioning PLAN FOR NEXT [...] Lives With: Self/Alone Assistance Available: Community[facility]Based [facility] Fruit Press Operator, PRN (currently getting HH Nsg, has friends that [...] (within normal limits) 32 (more content not included)...[facility]05-29-2025 History of Present illness Narrative* Sarah Merchant, [...] increase T-score by a minimum 5 points. [place] in home exercise program. Patient will demonstrate [...] Planned: 12 Planned Treatment Interventions: Therapeutic exercise (02989), Neuromuscular re- education (80126), Therapeutic activities (50543), Self-group home management (77773), Gait Training (82766), Patient/Family/Caregiver Education, General Conditioning PLAN FOR NEXT [...] Lives With: Self/Alone Assistance Available: Community-Based Health Fruit Press Operator, PRN (currently getting HH Nsg, has friends that [...] Lower Extremity: Trendelenburg General Deviations/Observations: Antalgic gait, Jennfier decreased, Difficulty changing direction/turning, Flexed trunk posture, [...] 1401 Session Stop Time : 1459 Sarah Merchant PT documented in this encounterKet[facility]05-29-2025 Telephone encounter Note * Telephone Encounter - Key Portillo APRN.CNP - 09/28/2024 3:01 PM EDT Pt needs appointment to assess this. This was not mentioned in recent office visit 1 month ago. Thank you, eKy Portillo APRN.CNP [facility]05-29-2025 Telephone encounter Note* Telephone Encounter - Nadine Colon LPN - 09/28/2024 1:42 PM EDT Kell from [facility] calling to report patient tremor is [...] is out of the office. Please advise [facility]05-12-2025 Telephone encounter Note* Telephone Encounter - Delisa [...] Delisa Gomez September 11, 2024 9:22 AM T [facility]05-12-2025 Miscellaneous Notes* Telephone Encounter - Delisa Townsend [...] 11, 2024 9:22 AM documented in this encounterKettering [facility]05-09-2025 Telephone encounter Note * Telephone Encounter - Michael Puga DO - 09/08/2024 5:06 PM EDT Noted Michael Puga DO [facility]05-09-2025 Miscellaneous Notes* Telephone Encounter - Michael Puga [...] for oxygen. Pt reports she was in [facility] about a yr ago with pneumonia, and [...] guidelines. Please phone Jackelin with any questions: [phone] extension [phone] documented in this encounterKet[facility]05-09-2025 Telephone encounter Note * Telephone Encounter - [...] Prednisone and not using the oxygen. Amanda Pratt, GLYNN [facility]05-09-2025 Telephone encounter Note* Telephone Encounter - Loli Adamson RN - 09/08/2024 1:32 PM EDT Phoned pt and explained what [employer] reported needed to be done per Medicare guidelines for her to qualify for oxygen. Pt reports she was in [facility] about a yr ago with pneumonia, and [...] thinks she should do. Please advise pt. [facility]05-09-2025 Telephone encounter Note* Telephone Encounter - Michael Puga DO - 09/08/2024 12:37 PM EDT Noted, is she willing to do this testing? Michael Puga DO [facility]05-09-2025 Telephone encounter Note* Telephone Encounter - Loli Adamson RN - 09/08/2024 10:41 AM EDT Jackelin- [facility]- reports since pt has dx JOSE on CPAP, per medicare guidelines, pt would have to have sleep titration study to qualify for oxygen. States pt would not qualify for oxygen- with overnight pulse oximetry test per medicare guidelines. Please phone Jackelin with any questions: [phone] extension [phone] [facility]05-09-2025 Telephone encounter Note* Telephone Encounter - Jacque Machuca MA - 09/08/2024 8:52 AM EDT Faxed Jacque Machuca MA [facility]05-09-2025 Miscellaneous Notes* Telephone Encounter - Jacque Machuca MA - 09/08/2024 8:52 AM EDT Faxed Jacque Machuca MA * Telephone Encounter - Asia Rosales APRN.CNP - 09/08/2024 8:22 AM EDT It's in the outbox in my office. Asia Rosales APRN.CARMELINA * Telephone Encounter - Jacque Machuca MA - 09/08/2024 8:15 AM EDT Please print script Jacque Machuca MA * Telephone Encounter - Asia Rosales APRN.CNP - 09/07/2024 1:32 PM EDT I placed the order best I know how to. Please fax per below request. Asia Rosales APRN.CNP * Telephone Encounter - Bhavna Arauz RN - 09/07/2024 11:16 AM EDT Petra NOLASCO from [facility] calls and is asking status of [...] advise, Bhavna Arauz RN documented in this encounterKettering Health [facility]05-09-2025 Telephone encounter Note * Telephone Encounter - Asia Rosales APRN.CNP - 09/08/2024 8:22 AM EDT It's in the outbox in my office. Asia Rosales APRN.CNP [facility]05-09-2025 Telephone encounter Note* Telephone Encounter - Jacque Machuca MA - 09/08/2024 8:15 AM EDT Please print script Jacque Machuca MA [facility]05-08-2025 Telephone encounter Note* Telephone Encounter - Asia Rosales APRN.CNP - 09/07/2024 1:32 PM EDT I placed the order best I know how to. Please fax per below request. Asia Rosales APRN.CARMELINA [facility]05-08-2025 Telephone encounter Note* Telephone Encounter - Bhavna Arauz RN - 09/07/2024 11:16 AM EDT Petra NOLASCO from [facility] calls and is asking status of request. When order is placed, please fax orderto [employer]. Please place order for nighttime pulsometry test and fax to [employer]. Please review and advise, Bhavna Arauz RN [facility]05-07-2025 Telephone encounter Note* Telephone Encounter - Julianna Cano LPN - 09/06/2024 1:12 PM EDT Pt. informed and would like to get the nighttime Oximetry. [facility]05-06-2025 Telephone encounter Note* Telephone Encounter - Michael Puga DO - 09/05/2024 5:35 PM EDT Please clarify with more information What recommendation? Would need to have nighttime oximetry testing for me to order oxygen by insurance Michael Puga DO [facility]05-06-2025 Telephone encounter Note* Telephone Encounter - Bhavna Arauz RN - 09/05/2024 11:46 AM EDT Patient calls and states that palliative care nurse had just visited patient. Palliative nurse had told patient that patient would benefit to have oxygen at night. Patient state that nurse had told patient to call office about this. Please review and advise, Bhavna Arauz RN [facility]04-30-2025 Instructions* Patient Instructions* Michael Puga DO - [...] alive, yogurt, cottage cheese Relion meter at [facility] if insurance doesn't want to cover rx. [facility] Address: [address] [place] [address], [place] [address] documented in this encounterKettering Health [facility]04-30-2025 NoteHNO ID: [id number] Author: MICHAEL PUGA DO Service: ? Author [...] ACETBLR/PROX FEM PROSTC AGRFT/ALGRFT Left 07/2016 [facility] CONDYLEANDPLATU MEDIALANDLAT COMPARTMENTS 11/15/2009 Knee replacement, total -Left - [facility] ARTHRP E CONDYLEANDPLATU MEDIALANDLAT COMPARTMENTS 12/30/2009 Right knee replaced COLONOSCOPY FLX DX W/COLLJ SPEC WHEN PFRMD 06/29/2017 Colonoscopy EGD 10/17/2020 EGD W/O [facility] SPEC VARICIES INJ 01/08/2022 EGD W/O [facility] SPEC VARICIES INJ 03/31/2024 Lito [...] Rash Demerol [Meperidine* Vomiting (more content not included)...[facility]04-30-2025 History of Present illness Narrative* Michael Puga, DO - 08/30/2024 3:40 PM EDT CC: Michael [...] COMPARTMENTS 11/15/2009 Knee replacement, total -Left - [facility] ARTHRP KNE CONDYLE&PLATU MEDIAL&LAT COMPARTMENTS 12/30/2009 Right knee replaced COLONOSCOPY FLX DX W/COLLJ SPEC WHEN PFRMD 06/29/2017 Colonoscopy EGD 10/17/2020 EGD W/O [facility] SPEC VARICIES INJ 01/08/2022 EGD W/O [facility] SPEC VARICIES INJ 03/31/2024 [place] ESOPHAGOGASTRODUODENOSCOPY TRANSORAL DIAGNOSTIC 11/29/2000 EGD ESOPHAGOGASTRODUODENOSCOPY TRANSORAL [...] dyspnea Follow up with Palliative care and Solar Sales Rep. 5. Obstructive lung disease (HCC) - ICD9: [...] dyspnea Follow up with Palliative care and Solar Sales Rep. Michael Puga DO Return if no improvement. Follow up with Michael Puga DO. To ER if develops chest pain, shortness of breath. Discussed risks, benefits, alternatives, and potential side effects of medications. Patient/Guardian expressed understanding and agreed with the plan. See patient instructions. Michael Puga DO [address] [place] [address] documented in this encounterKettering Health [facility]04-18-2025 Telephone encounter Note * Telephone Encounter - Asia Rosales APRN.CNP - 08/18/2024 2:37 PM EDT I saw her in the office yesterday 08/17 and these concerns were addressed. Asia Rosales APRN.CNP [facility] Work Phone: 1(594) 787-410604-18-2025 Miscellaneous Notes* Telephone Encounter - Asia Rosales APRN.CNP - 08/18/2024 2:37 PM EDT I saw her in the office yesterday 08/17 and these concerns were addressed. Asia Rosales APRN.CNP * Telephone Encounter - Loli Adamson RN - 08/16/2024 1:28 PM EDT Petra- - [facility]- reports she is seeing patient and [...] nurse phoned patient and scheduled appt with Facilities Administrator for tomorrow to see if Facilities Administrator can increase patient's paxil. documented in this encounterKettering Health [facility]04-17-2025 NoteHNO ID: [id number] Author: ASIA ROSALES APRN.STEREOPTIC PROJECTION TOPOGRAPHER Service: ? Author Type: Nurse Practitioner Type: [...] ACETBLR/PROX FEM PROSTC AGRFT/ALGRFT Left 07/2016 [facility] CONDYLEANDPLATU MEDIALANDLAT COMPARTMENTS 11/15/2009 Knee replacement, total -Left - [facility]RP E CONDYLEANDPLATU MEDIALANDLAT COMPARTMENTS 12/30/2009 Right knee replaced COLONOSCOPY FLX DX W/COLLJ SPEC WHEN PFRMD 06/29/2017 Colonoscopy EGD 10/17/2020 EGD W/O [facility] SPEC VARICIES INJ 01/08/2022 EGD W/O [facility] SPEC VARICIES INJ 03/31/2024 Lito ESOPHAGOGASTRODUODENOSCOPY TRANSORAL [...] capsule by mouth once (more content not included)...[facility]04-17-2025 History of Present illness Narrative* Asia Rosales APRN.STEREOPTIC PROJECTION TOPOGRAPHER - 08/17/2024 3:22 PM EDT Chief Complaint [...] COMPARTMENTS 11/15/2009 Knee replacement, total -Left - [facility]RP KNE CONDYLE&PLATU MEDIAL&LAT COMPARTMENTS 12/30/2009 Right knee replaced COLONOSCOPY FLX DX W/COLLJ SPEC WHEN PFRMD 06/29/2017 Colonoscopy EGD 10/17/2020 EGD W/O [facility] SPEC VARICIES INJ 01/08/2022 EGD W/O [facility] SPEC VARICIES INJ 03/31/2024 Lito [...] cooperative, denies [facility] Health Maintenance List Covid-19 Vaccine( season) due [...] 08/18/2024 Time: 8:26 AM documented in this encounterKettering Health [facility]04-16-2025 Telephone encounter Note * Telephone Encounter - Loli Adamson RN - 08/16/2024 1:28 PM EDT [facility] reports she is seeing patient and [...] nurse phoned patient and scheduled appt with Facilities Administrator for tomorrow to see if Facilities Administrator can increase patient's paxil. [facility]03-07-[facility] Telephone encounter Note* Telephone Encounter - Amanda [...] to do anything. Protocols used: Medication Question [id number] [facility]03-07-2025 Miscellaneous Notes* Telephone Encounter - Amanda Pratt [...] to do anything. Protocols used: Medication Question [id number] documented in this encounterKettering Health [facility]03-03-2025 NoteHNO ID: [id number] Author: PJ BLEDSOE, PT Service: ? Author Type: Physical Therapist Type: Progress Notes Filed: 07/03/2024 08:48 Note Text: 07/03/2024 [facility] PHYSICAL THERAPY [...] did not attend further PT. Pj Bledsoe, [facility]02-26-2025 Telephone encounter Note* Telephone Encounter - Renea Wallace MA - 06/28/2024 11:38 AM EST Printed telephone encounter with cover sheet & faxed to Dr. Edelmira [phone]. Advised on cover sheet to respond with window repairer's recommendations. Will wait for fax back. Renea Wallace MA [facility]02-26-2025 Miscellaneous Notes* Telephone Encounter - Renea Wallace MA - 06/28/2024 11:38 AM EST Printed telephone encounter with cover sheet & faxed to Dr. Hickey [phone]. Advised on cover sheet to respond with window repairer's recommendations. Will wait for fax back. Renea Wallace MA * Telephone Encounter - Michael Puga DO - 06/28/2024 10:37 AM EST Please call her window repairer office at [facility] and see if they are concerned with [...] reports provider was going to check with [facility] about taking it since it can cause SOB. Please review and advise, Amanda Pratt RN documented in this encounterKettering Health [facility]02-26-2025 Telephone encounter Note * Telephone Encounter - Michael Puga DO - 06/28/2024 10:37 AM EST Please call her window repairer office at [facility] and see if they are concerned with her shortness of breath and respirator symptoms potentially being secondary to SE from Amiodarone and if any options to change this anti arrhythmic on their end? Michael Puga DO [facility]02-25-2025 NoteHNO ID: [id number] Author: MICHAEL PUGA DO Service: ? Author [...] and albuterol. She has been seen by Deburring Machine Operator as well as Dr. Hickey/Solar Sales Rep at [facility] for follow up after discharge home. She [...] COMPARTMENTS 11/15/2009 Knee replacement, total -Left - [facility] KNE CONDYLEANDPLATU MEDIALANDLAT COMPARTMENTS 12/30/2009 Right knee replaced COLONOSCOPY FLX DX W/COLLJ SPEC WHEN PFRMD 06/29/2017 Colonoscopy EGD 10/17/2020 EGD W/O [facility] SPEC VARICIES INJ 01/08/2022 EGD W/O [facility] SPEC VARICIES INJ 03/31/2024 Lito [...] Zithromax [Azithrom* Intolerance Social (more content not included)...[facility]02-25-2025 History of Present illness Narrative* Michael Puga, DO - 06/27/2024 4:06 PM EST CC: Michael [...] and albuterol. She has been seen by Deburring Machine Operator as well as Dr. Hickey/Solar Sales Rep at [facility] for follow up after discharge home. She [...] CONDYLE&PLATU MEDIAL&LAT COMPARTMENTS 11/15/2009 Knee replacement, total -[facility] ARTHRP KNE CONDYLE&PLATU MEDIAL&LAT COMPARTMENTS 12/30/2009 Right knee replaced COLONOSCOPY FLX DX W/COLLJ SPEC WHEN PFRMD 06/29/2017 Colonoscopy EGD 10/17/2020 EGD W/O [facility] SPEC VARICIES INJ 01/08/2022 EGD W/O [facility] SPEC VARICIES INJ 03/31/2024 Lito [...] I27.20 See above F/u with Pulm and Solar Sales Rep Multifactorial, recently diagnosed - NEBULIZER ACCESSORIES KIT - NEBULIZER 4. WELCH (dyspnea on exertion) - ICD9: 786.09, ICD10: R06.09 See above F/u with Pulm and Solar Sales Rep Multifactorial, CHF and obstructive lung disease have been recently diagnosed - NEBULIZER ACCESSORIES KIT - NEBULIZER 5. Function kidney decreased - ICD9: 593.9, ICD10: N28.9 stable 6. 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 Arthritis, multiple joint involvement - ICD9: 716.99, ICD10: M12.9 Stable, no falls Michael L Puga, DO Return if no improvement. Follow up with Michael Puga DO. To ER if develops chest pain, shortness of breath. Discussed risks, benefits, alternatives, and potential side effects of medications. Patient/Guardian expressed understanding and agreed with the plan. See patient instructions. Michael Puga DO [address] [facility] [place] [address] documented in this encounterKettering Health Troy02-24-2025 Telephone encounter Note * Telephone Encounter - Amanda Pratt RN - 06/26/2024 2:42 PM EST Patient calls to let provider know that she didn't start the Advair Diskus d/t side effects and thepulmonary testing didn't show asthma or COPD per patient. Patient also asking about amiodarone. Doesn't look like it is ordered by provider but patient reports provider was going to check with [facility] about taking it since it can cause SOB. Please review and advise, Amanda Pratt RN [facility]02-04-2025 Telephone encounter Note* Telephone Encounter - Jacque Machuca MA - 06/06/2024 4:35 PM EST Pt informed, verbalized understanding Jacque Machuca MA [facility]02-04-2025 Miscellaneous Notes* Telephone Encounter - Jacque Machuca [...] Pt calls for lab results done at [facility] on 06/02/24. Results are scanned in the lab chart.. Constance Ervin LPN documented in this encounterKettering Health [facility]02-04-2025 Telephone encounter Note * Telephone Encounter - Michael Puga DO - 06/06/2024 4:28 PM EST Please inform patient that her BUN is slightly high, creatinine is normal. She needs to increase her fluid/water intake. Also her AST and ALT liver enzyme labs are slightly high- this CMP lab needs to be rechecked in 1 month Michael Puga DO [facility]02-04-2025 Telephone encounter Note* Telephone Encounter - Constance Ervin LPN - 06/06/2024 11:52 AM EST Pt calls for lab results done at [facility] on 06/02/24. Results are scanned in the lab chart.. Constance Ervin LPN [facility]01-29-2025 Telephone encounter Note* Telephone Encounter - Key Portillo APRN.STEREOPTIC PROJECTION TOPOGRAPHER - 05/31/2024 10:44 AM EST Noted. Thank you, Key Portillo APRN.STEREOPTIC PROJECTION TOPOGRAPHER [facility]01-29-2025 Miscellaneous Notes* Telephone Encounter - Key Portillo APRN.CARMELINA - 05/31/2024 10:44 AM EST Noted. Thank you, Key Portillo APRN.STEREOPTIC PROJECTION TOPOGRAPHER * Telephone Encounter - Amanda Pratt RN - 05/31/2024 10:07 AM EST Qing with [facility] calls in regards to below. CMP was not completed. Re-faxed ordered to [facility] lab and Qing will add a nurse visit for this week to collect specimen as soon as possible. Amanda Pratt RN * Telephone Encounter - Key Portillo APRN.CARMELINA - 05/31/2024 7:36 AM EST I don't see CMP results either. Can we call [facility] and confirm this was drawn. If not, have her get itdone. Thank you, Key Portillo APRN.STEREOPTIC PROJECTION TOPOGRAPHER * Telephone Encounter - Loli Adamson RN - 05/30/2024 8:26 AM EST Pt reports she had a CMP done at [facility] on 05/25/24 to check her kidneys and glucose. We received a BNP and CBC from [facility] under labs. Do not see a CMP. Patient asking Key to review and advise. documented in this encounterKettering Health [facility]01-29-2025 Telephone encounter Note * Telephone Encounter - Amanda Pratt RN - 05/31/2024 10:07 AM EST Qing with [facility] calls in regards to below. CMP was not completed. Re-faxed ordered to [facility] lab and Qing will add a nurse visit for this week to collect specimen as soon as possible. Amanda Pratt RN [facility]01-29-2025 Telephone encounter Note* Telephone Encounter - Key Portillo APRN.STEREOPTIC PROJECTION TOPOGRAPHER - 05/31/2024 7:36 AM EST I don't see CMP results either. Can we call [facility] and confirm this was drawn. If not, have her get itdone. Thank you, Key Portillo APRN.STEREOPTIC PROJECTION TOPOGRAPHER [facility]01-28-2025 Telephone encounter Note* Telephone Encounter - Loli Adamson RN - 05/30/2024 8:26 AM EST Pt reports she had a CMP done at [facility] on 05/25/24 to check her kidneys and glucose. We received a BNP and CBC from [facility] under labs. Do not see a CMP. Patient asking Key to review and advise. [facility]01-23-2025 Telephone encounter Note* Telephone Encounter - Marisol Cano LPN - 05/25/2024 10:15 AM EST Left detailed message on confidential voice mail. Also left out number for any questions. [facility]01-23-2025 Miscellaneous Notes* Telephone Encounter - Marisol Cano LPN - 05/25/2024 10:15 AM EST Left detailed message on confidential voice mail. Also left out number for any questions. * Telephone Encounter - Key Portillo APRN.CNP - 05/25/2024 10:00 AM EST I would like patient to take medication and then recheck BP. BP was WNL at appointment on 05/11. I see from discharge instructions from [facility] that she was taking HCTZ at that [...] mouth once daily. Authorizing Provider: KEY PORTILLO APRN.STEREOPTIC PROJECTION TOPOGRAPHER * Telephone Encounter - July Marcano RN - 05/25/2024 9:25 AM EST Bhavna MAKI CM with [facility] called in and reports Pt had been taken off her Hydrochlorothiazide perCardiology for a while, but the last time she was in the hospital she was put back on 12.5 mg. She states the Pt is going to need a script called in if she is to be taking them to [facility].I told her I didn't see the HCTZ [...] Please call and advise. documented in this encounterCleveland [id number] Telephone encounter Note * Telephone Encounter - Key Portillo APRN.CNP - 05/25/2024 10:00 AM EST I would like patient to take medication and then recheck BP. BP was WNL at appointment on 05/11. I see from discharge instructions from [facility] that she was taking HCTZ at that time. I would recommend staying on HCTZ regimen at this. Rx sent to pharmacy. Does she still have cards appointment with Dr. Hickey on 06/01 -- if so, they can decide if they wantto keep her on this medication or not at that time. Thank you, Key Portillo APRN.CNP The following approved medication requests have been transmitted electronically. Requested Prescriptions Signed Prescriptions Disp Refills hydroCHLOROthiazide 12.5 mg capsule 90 capsule 0 Sig: Take 1 capsule by mouth once daily. Authorizing Provider: KEY PORTILLO APRN.CNP [facility]01-23-2025 Telephone encounter Note* Telephone Encounter - July Marcano RN - 05/25/2024 9:25 AM EST Bhavna MAKI CM with [facility] called in and reports Pt had been taken off her Hydrochlorothiazide perCardiology for a while, but the last time she was in the hospital she was put back on 12.5 mg. She states the Pt is going to need a script called in if she is to be taking them to [facility].I told her I didn't see the HCTZ [...] labs this morning. Please call and advise. [facility]01-17-2025 Telephone encounter Note* Telephone Encounter - Julianna Cano LPN - 05/19/2024 2:43 PM EST Pt. informed. [facility]01-17-2025 Miscellaneous Notes* Telephone Encounter - Julianna Moreno LPN - 05/19/2024 2:43 PM EST Pt. informed. * Telephone Encounter - Key Portillo APRN.CARMELINA [...] a good sign. Thank you, Key Portillo APRN.STEREOPTIC PROJECTION TOPOGRAPHER * Telephone Encounter - Chloe Castro LPN - 05/19/2024 12:21 PM EST Pt calling for results of lab work she had done in her home yesterday, Results are I Epic. Please advise pt. Chloe Castro LPN documented in this encounterKettering Health [facility]01-17-2025 Telephone encounter Note * Telephone Encounter - Key Portillo APRN.STEREOPTIC PROJECTION TOPOGRAPHER - 05/19/2024 2:39 PM EST Please let patient know that lab work results look much much better! Kidney function is improving drastically. I want her to continue to stay off of the lasix and repeat labs 1 more time in 1 week. Without the lasix her BNP remains stable which is also a good sign. Thank you, Key Portillo APRN.STEREOPTIC PROJECTION TOPOGRAPHER [facility]01-17-2025 Telephone encounter Note* Telephone Encounter - Chloe Castro LPN - 05/19/2024 12:21 PM EST Pt calling for results of lab work she had done in her home yesterday, Results are I Epic. Please advise pt. Chloe Castro LPN [facility]01-16-2025 Telephone encounter Note* Telephone Encounter - Key Portillo APRN.CARMELINA - 05/18/2024 10:50 AM EST Perfect! Thank you. Key Portillo APRN.STEREOPTIC PROJECTION TOPOGRAPHER [facility]01-16-2025 Miscellaneous Notes* Telephone Encounter - Key Portillo APRN.CARMELINA - 05/18/2024 10:50 AM EST Perfect! Thank you. Key Portillo APRN.STEREOPTIC PROJECTION TOPOGRAPHER * Telephone Encounter - Tameka Marin RN - 05/18/2024 10:43 AM EST Bhavna with [facility] calling in and states she was able to draw all labs needed today. Tameka Marin, RN * Telephone Encounter - Key Portillo APRN.CARMELINA - 05/18/2024 10:42 AM EST Most important is CMP to have drawn if able. Agree with below. Pt needs to discontinue lasix all together. This was ordered by [facility] after recent admission for new onset CHF exacerbation. Initially ordered for 40 mg daily, I decreased to 20 mg daily after kidney function was so poor and told pt to repeat labs in 5 days with plan to discontinue all together if swelling and weight gain remained stable with decreased. Thank you, Key Portillo APRN.STEREOPTIC PROJECTION TOPOGRAPHER * Telephone Encounter - July Marcano RN - 05/18/2024 9:59 AM EST Bhavna MAKI [facility] called in and reports Pt isn't [...] if she can. Pt will go to [place] and get it drawn in the morning. [...] LPN - 05/17/2024 9:46 AM EST Phoned [facility] pharmacy\ with clarification on current meds. Spironolactone 25 mg daily was prescribed by the [facility] also hydralazine 25 mg was prescribed by [facility]. Lasix 20 mg was just prescribed by Key Portillo, then Lasix 40 mg was prescribed by [facility] May 02. Left message with Bhavna [facility] about above information. Please review and advise further. Marcie Rodriguez LPN * Telephone Encounter - Michael Puga DO - 05/17/2024 9:02 AM EST Please clarify with pharmacy and patient her current diuretic/BLOOD PRESSURE medications that she is picking up and taking * Telephone Encounter - Amanda Pratt RN - 05/16/2024 10:19 AM EST Bhavna with [facility] calls to report duplicate therapy between lasix and spironolactone and lasix and hydralazine. Bhanva is asking if provider wants all medications continued. Hydralazine and Spironolactone are on current medication list but prescription not sent to pharmacy. Please review and advise. Bhavna is requesting a call back at [phone]. Amanda Pratt RN documented in this encounterKettering Health [facility]01-16-2025 Telephone encounter Note * Telephone Encounter - Tameka Marin RN - 05/18/2024 10:43 AM EST Bhavna with [facility] calling in and states she was able to draw all labs needed today. Tameka Marin RN [facility]01-16-2025 Telephone encounter Note* Telephone Encounter - Key Portillo APRN.CARMELINA - 05/18/2024 10:42 AM EST Most important is CMP to have drawn if able. Agree with below. Pt needs to discontinue lasix all together. This was ordered by [facility] after recent admission for new onset CHF exacerbation. Initially ordered for 40 mg daily, I decreased to 20 mg daily after kidney function was so poor and told pt to repeat labs in 5 days with plan to discontinue all together if swelling and weight gain remained stable with decreased. Thank you, Key Portillo APRN.STEREOPTIC PROJECTION TOPOGRAPHER [facility]01-16-2025 Telephone encounter Note* Telephone Encounter - July Marcano RN - 05/18/2024 9:59 AM EST Bhavna MAKI [facility] called in and reports Pt isn't [...] what labs she was able to drawn. [facility]01-16-2025 Telephone encounter Note* Telephone Encounter - Sultana Catalan RN - 05/18/2024 9:50 AM EST Pt would like a call back as soon as possible after her labs are resulted. [facility]01-15-2025 Telephone encounter Note* Telephone Encounter - Michael Puga DO - 05/17/2024 8:46 PM EST Order placed for CMP Michael Puga DO [facility]01-15-2025 Telephone encounter Note* Telephone Encounter - [...] 5-7 days. Pended order for repeat CMP. [facility]01-15-2025 Telephone encounter Note* Telephone Encounter - Sultana Catalan RN - 05/17/2024 6:39 PM EST Pt returned the call and appt made with Dr. Puga for 520 pm on 06/21/24. Pt reminded to stop Lasix and make sure to get labs drawn in AM. [facility]01-15-2025 Telephone encounter Note* Telephone Encounter - Sultana Catalan RN - 05/17/2024 6:20 PM EST LM for pt to return the call as pt needs appt set up for around 06/22/24 which would be 6 wk f/u. Reinforce to pt to stop Lasix and get labs drawn in the AM. [facility]01-15-2025 Telephone encounter Note* Telephone Encounter - Michael Puga DO - 05/17/2024 6:11 PM EST Agree with need for lab work Agree with need for follow up in Primary care but would recommend that this visit is after the visit in Cardiology Michael Puga DO [facility]01-15-2025 Telephone encounter Note* Telephone Encounter - Sultana [...] Verbalizes understanding. Pt is scheduled to see [facility] on 06/01/24. Per Alondra Portillo's OV note on 05/11/24, pt was to schedule a 6 wk follow up which is not scheduled. Does pt need to come to PCP office in addition to [facility] appt? Pt due for labwork as labs drawn on 05/11/24 showed significant decrease in kidney function. Asked ptto get it drawn in the morning if she can. Pt will go to [place] and get it drawn in the morning. [facility]01-15-2025 Telephone encounter Note* Telephone Encounter - Michael Puga DO - 05/17/2024 12:31 PM EST Please clarify what her edema of her legs is looking like? This was assessed by Key and not myself. I Don't want her to be on the spironolactone and the lasix. Recommend stopping the lasix if her edema is improved Michael Puga DO [facility]01-15-2025 Telephone encounter Note* Telephone Encounter - Marcie Rodriguez LPN - 05/17/2024 9:46 AM EST Phoned [facility] pharmacy\ with clarification on current meds. Spironolactone 25 mg daily was prescribed by the [facility] also hydralazine 25 mg was prescribed by [facility]. Lasix 20 mg was just prescribed by Key Portillo, then Lasix 40 mg was prescribed by [facility] May 02. Left message with Bhavna [facility] HUE about above information. Please review and advise further. aMrcie Rodriguez LPN [facility]01-15-2025 Telephone encounter Note* Telephone Encounter - Michael Puga DO - 05/17/2024 9:02 AM EST Please clarify with pharmacy and patient her current diuretic/BLOOD PRESSURE medications that she is picking up and taking [facility]01-14-2025 Telephone encounter Note* Telephone Encounter - Amanda Pratt RN - 05/16/2024 10:19 AM EST Bhavna with [facility] calls to report duplicate therapy between lasix and spironolactone and lasix and hydralazine. Bhavna is asking if provider wants all medications continued. Hydralazine and Spironolactone are on current medication list but prescription not sent to pharmacy. Please review and advise. Bhavna is requesting a call back at [phone]. Amanda Pratt RN [facility]01-10-2025 Telephone encounter Note* Telephone Encounter - Key Portillo APRN.CARMELINA - 05/12/2024 2:22 PM EST Agree with below. We are repeating BNP lab work in 5-7 days as well to check for this. Thank you, Key Portillo APRN.STEREOPTIC PROJECTION TOPOGRAPHER [facility]01-10-2025 Miscellaneous Notes* Telephone Encounter - Key Portillo APRN.CARMELINA - 05/12/2024 2:22 PM EST Agree with below. We are repeating BNP lab work in 5-7 days as well to check for this. Thank you, Key Portilol APRN.STEREOPTIC PROJECTION TOPOGRAPHER * Telephone Encounter - Sultana Catalan RN [...] e. Pt verbalizes understanding. documented in this encounterKettering [facility]01-10-2025 Telephone encounter Note * Telephone Encounter - [...] at that vernell e. Pt verbalizes understanding. [facility]01-10-2025 Telephone encounter Note* Telephone Encounter - Jacque Machuca MA - 05/12/2024 1:04 PM EST Pt informed Jacque Machuca MA [facility]01-10-2025 Miscellaneous Notes* Telephone Encounter - Jacque Machuca [...] was identified. 05/12/2024 by Key Portillo APRN.CARMELINA * Telephone Encounter - Marisol Cano LPN - 05/12/2024 12:43 PM EST Spoke with pt gave information provided. Pt voices understanding. She states she spoke with you about some ativan yesterday in appointment but nothing was at [facility] when she went. * Telephone Encounter - Key Portillo APRN.CNP - 05/12/2024 9:08 AM EST Please call [...] with decreasing lasix. Thank you, Key Portillo APRN.STEREOPTIC PROJECTION TOPOGRAPHER documented in this encounterKettering Health [facility]01-10-2025 Telephone encounter Note * Telephone Encounter - [...] was identified. 05/12/2024 by Key Portillo APRN.CARMELINA [facility]01-10-2025 Telephone encounter Note* Telephone Encounter - Marisol Cano LPN - 05/12/2024 12:43 PM EST Spoke with pt gave information provided. Pt voices understanding. She states she spoke with you about some ativan yesterday in appointment but nothing was at [facility] when she went. [facility]01-10-2025 Telephone encounter Note* Telephone Encounter - Key Portillo APRN.CNP - 05/12/2024 9:08 AM EST Please call [...] with decreasing lasix. Thank you, Key Portillo APRN.STEREOPTIC PROJECTION TOPOGRAPHER [facility]01-09-2025 History of Present illness Narrative* Key Portillo APRN.CNP - 05/11/2024 1:00 PM EST Chief Complaint Patient presents with: Transition Of Care: Was i wfor chf flae was discharged on 05/02/24 HPI Michael Meier is a 84 year old female who presents here today for Above Complaints. Michael is an established patient of Dr. Edd DO. Concerns today... Hospital discharge -- [facility] hospital admission from 04/30-05/02 d/t hypoxia and [...] COMPARTMENTS 11/15/2009 Knee replacement, total -Left - [facility] ARTHRP KNE CONDYLE&PLATU MEDIAL&LAT COMPARTMENTS 12/30/2009 Right knee replaced COLONOSCOPY FLX DX W/COLLJ SPEC WHEN PFRMD 06/29/2017 Colonoscopy EGD 10/17/2020 EGD W/O [facility] SPEC VARICIES INJ 01/08/2022 EGD W/O [facility] SPEC VARICIES INJ 03/31/2024 [place] ESOPHAGOGASTRODUODENOSCOPY TRANSORAL DIAGNOSTIC 11/29/2000 EGD ESOPHAGOGASTRODUODENOSCOPY TRANSORAL [...] Patient agreeable to treatment plan. Key Abrams APRN.STEREOPTIC PROJECTION TOPOGRAPHER [address] [place] [address] documented in this encounterKet[facility] Health [facility]01-09-2025 NoteHNO ID: [id number] Author: KEY PORTILLO APRN.CNP Service: ? Author [...] Edd DO. Concerns today... Hospital discharge -- [facility] hospital admission from 04/30-05/02 d/t hypoxia and [...] ACETBLR/PROX FEM PROSTC AGRFT/ALGRFT Left 07/2016 [facility] CONDYLEANDPLATU MEDIALANDLAT COMPARTMENTS 11/15/2009 Knee replacement, total -[facility] ARTHRP E CONDYLEANDPLATU MEDIALANDLAT COMPARTMENTS 12/30/2009 Right knee replaced COLONOSCOPY FLX DX W/COLLJ SPEC WHEN PFRMD 06/29/2017 Colonoscopy EGD 10/17/2020 EGD W/O [facility] SPEC VARICIES INJ 01/08/2022 EGD W/O [facility] SPEC VARICIES INJ 03/31/2024 [place] [...] Shake well before use (more content not included)...[facility]01-06-2025 Telephone encounter Note* Telephone Encounter - Key Portillo APRN.CNP - 05/08/2024 10:47 AM EST Noted. Will address then. Thank you, Key Portillo APRN.STEREOPTIC PROJECTION TOPOGRAPHER [facility]01-06-2025 Miscellaneous Notes* Telephone Encounter - Key Portillo APRN.CNP - 05/08/2024 10:47 AM EST Noted. Will address then. Thank you, Key T Portillo, HOUSE DIRECTOR.STEREOPTIC PROJECTION TOPOGRAPHER * Telephone Encounter - Michael Puga DO - 05/08/2024 10:36 AM EST Will have her discuss with Key at office visit Michael Puga DO * Telephone Encounter - Amanda Pratt RN - 05/08/2024 8:59 AM EST Marifer with [facility] calls to let provider know that patient is having increasing pain with RLS especially at night. Marifer asking if provider would order medication. Patient not currently taking any medication for RLS. Patient previously scheduled for hospital follow up on 05/11/2024 with Key Portillo. Amanda Pratt RN documented in this encounterKet[facility]01-06-2025 Telephone encounter Note * Telephone Encounter - Michael Puga DO - 05/08/2024 10:36 AM EST Will have her discuss with Key at office visit Michael Puga DO [facility]01-06-2025 Telephone encounter Note* Telephone Encounter - Amanda Pratt RN - 05/08/2024 8:59 AM EST Marfier with [facility] calls to let provider know that patient is having increasing pain with RLS especially at night. Marifer asking if provider would order medication. Patient not currently taking any medication for RLS. Patient previously scheduled for hospital follow up on 05/11/2024 with Key Portillo. Amanda Pratt RN [facility]01-03-2025 Telephone encounter Note* Telephone Encounter - Michael Puga DO - 05/05/2024 4:40 PM EST Noted Michael Puga DO [facility]01-03-2025 Miscellaneous Notes* Telephone Encounter - Michael Puga DO - 05/05/2024 4:40 PM EST Noted Michael Puga DO * Telephone Encounter - July Marcano RN - 05/05/2024 3:58 PM EST Sergio PT with [facility] called in and reports they will be seeing Pt twice a week for 3 weeks for functional mobility training. documented in this encounterKettering Health [facility]01-03-2025 Telephone encounter Note * Telephone Encounter - July Marcano RN - 05/05/2024 3:58 PM EST Sergio PT with [facility] called in and reports they will be seeing Pt twice a week for 3 weeks for functional mobility training. [facility]01-03-2025 Telephone encounter Note* Telephone Encounter - Jacque Machuca MA - 05/05/2024 8:54 AM EST Suha Machuca MA [facility]01-03-2025 Miscellaneous Notes* Telephone Encounter - Jacque Machuca MA - 05/05/2024 8:54 AM EST Suha Machuca MA * Telephone Encounter - Michael Puga DO - 05/05/2024 8:36 AM EST Ok with orders Michael Puga DO * Telephone Encounter - Aly Tolentino LPN - 05/04/2024 2:24 PM EST Suha from [facility] calling with plan of care. Only need to call her back if pcp not agreeable with orders. They will be seeing pt 1x wk for 1 wk then 2xs wk for 3 wks then 1x wk for 1 wk for disease and medication education. Aly Tolentino LPN documented in this encounterKettering [facility]01-03-2025 Telephone encounter Note * Telephone Encounter - Michael Puga DO - 05/05/2024 8:36 AM EST Ok with orders Michael Puga DO [facility]01-02-2025 NoteHNO ID: [id number] Author: Loli ADAMSON RN Service: ? Author Type: Registered Nurse Type: Progress Notes Filed: 05/04/2024 14:41 Note Text: TRANSITION CARE MANAGEMENT (TCM) INITIAL CONTACT Clinical Research Nurse Coordinator Outreach Provider Action/FYI: Pt reports [facility] is going to be visiting pt for PT OT SN Initial contact with patient post discharge, spoke to patient. Patient identified by name and . TRANSITION CARE MANAGEMENT INITIAL OUTREACH DOCUMENTATION: 05/04/2024 Date of Outreach: Outreach Attempt 1: Contact Made Date of Discharge 05/02/2024 SUMMARY: -Pt discharged from [facility] on 05-02-24. -Admitted for: CHF Do you [...] Yes Medical records from recent hospitalization: [facility] History of Present illness Narrative* Loli Adamson RN - 05/04/2024 2:31 PM EST TRANSITION CARE MANAGEMENT (TCM) INITIAL CONTACT Clinical Research Nurse Coordinator Outreach Provider Action/FYI: Pt reports [facility] is going to be visiting pt for PT OT SN Initial contact with patient post discharge, spoke to patient. Patient identified by name and . TRANSITION CARE MANAGEMENT INITIAL OUTREACH DOCUMENTATION: 05/04/2024 Date of Outreach: Outreach Attempt 1: Contact Made Date of Discharge 05/02/2024 SUMMARY: -Pt discharged from [facility] on 05-02-24. -Admitted for: CHF Do you [...] recent hospitalization: Care Everywhere documented in this encounterKet[facility]01-02-2025 Telephone encounter Note * Telephone Encounter - Aly Tolentino LPN - 05/04/2024 2:24 PM EST Suha from [facility] calling with plan of care. Only need to call her back if pcp not agreeable with orders. They will be seeing pt 1x wk for 1 wk then 2xs wk for 3 wks then 1x wk for 1 wk for disease and medication education. Aly Tolentino LPN [facility]01-02-2025 Telephone encounter Note* Telephone Encounter - Milvia [...] 08/30/2024 Please advise. Thank you. Milvia Howard. [facility]01-02-2025 Miscellaneous Notes* Telephone Encounter - Milvia Howard [...] Thank you. Milvia Howard. documented in this encounterKettering Health [facility]01-02-2025 NotePatient Outreach (FAMPWS) MICHAEL MEIER ([id number]) 1940 F Date Time Provider Department 05/04/24 MICHAEL PUGA During your visit today, we recorded the following information about you: Loli Adamson RN 05/04/2024 2:41 PM Signed TRANSITION CARE MANAGEMENT (TCM) INITIAL CONTACT Clinical Research Nurse Coordinator Outreach Provider Action/FYI: Pt reports [facility] is going to be visiting pt for PT OT SN Initial contact with patient post discharge, spoke to patient. Patient identified by name and . TRANSITION CARE MANAGEMENT INITIAL OUTREACH DOCUMENTATION: 05/04/2024 Date of Outreach: Outreach Attempt 1: Contact Made Date of Discharge 05/02/2024 SUMMARY: -Pt discharged from [facility] on 05-02-24. -Admitted for: CHF Do you [...] SULFA (SULFONAMIDE ANTIBIOTICS) 03/17/2001 Comments: hives VICODIN (HYDROCODONE-ACETAMINOPHE*01/08/2005 5 - Intolerance Comments: dizzy,nausea,vomiting,headache ZITHROMAX (AZITHROMYCIN) 05/20/2017 5 - Intolerance Date Reviewed: 04/10/2024 Reviewed by: Sharon Jarrett APRN.STEREOPTIC PROJECTION TOPOGRAPHER - Fully Assessed Reason for Visit: Transition [...] 01/20/2007 03/11/2015 SOLAR LENGINES///DYSCHR (more content not included)...[facility] 05-02-2024 [facility]12-30-2024 Telephone encounter Note* Telephone Encounter - Julianna Cano LPN - 05/01/2024 4:41 PM EST Manny SWANN informed message left on . [facility]12-30-2024 Miscellaneous Notes* Telephone Encounter - Julianna Moreno LPN - 05/01/2024 4:41 PM EST Manny SWANN informed message left on VM. * Telephone Encounter - Nunu Gonzalez PA-C - 05/01/2024 4:03 PM EST Verbal order okay for PCP to follow for HH. Nunu Gonzalez PA-C * Telephone Encounter - Constance Ervin LPN - 05/01/2024 2:19 PM EST Larissa with [facility] calls to report pt is currently in the hospital with heart failure exacerbation.Pt will most likely be discharged 05/03/24. Pt has HH orders for PT, OT, and Custodial. Larissa is requesting VO that pcp will follow pt while in HH. Call Larissa with VO from pcp. Constance Ervin LPN documented in this encounterKettering Health [facility]12-30-2024 Telephone encounter Note * Telephone Encounter - Nunu Gonzalez PA-C - 05/01/2024 4:03 PM EST Verbal order okay for PCP to follow for HH. Nunu Gonzalez PA-C [facility]12-30-2024 Telephone encounter Note* Telephone Encounter - Constance Ervin LPN - 05/01/2024 2:19 PM EST Larissa with [facility] calls to report pt is currently in the hospital with heart failure exacerbation.Pt will most likely be discharged 05/03/24. Pt has HH orders for PT, OT, and Custodial. Larissa is requesting VO that pcp will follow pt while in . Call Larissa with VO from pcp. 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 Aly Tolentino LPN [facility]12-23-2024 Miscellaneous Notes* Telephone Encounter - Aly [...] Portillo. Aly Tolentino LPN documented in this encounterKettering Health [facility]12-19-2024 NoteHNO ID: [id number] Author: SARAH MERCHANT, PT Service: ? Author [...] L2x12' seat 8 2: shuttle leg press 6kgzlzx6', SL [id number], 7wzsksX2w - increased thigh pain 3: *standing back [...] Session Stop Time : 1335 Sarah Merchant [facility]12-19-2024 History of Present illness Narrative* Sarah Merchant, [...] L2x12' seat 8 2: shuttle leg press 8impveo3', SL [id number], 6zugafW8f - increased thigh pain 3: *standing back [...] 1335 Sarah Merchant PT documented in this encounterKettering Health [facility]12-17-2024 NoteHNO ID: [id number] Author: SARAH MERCHANT PT Service: ? Author [...] for Episode of Care: created on 11/15/23 [place] in home exercise program. Patient will demonstrate [...] Patient to be seen for Therapeutic exercise (86915), Neuromuscular re-education (42984), Therapeutic activities (57531), Self-group home management (96858), Gait Training (44879), Patient/Family/Caregiver Education, General Conditioning PLAN FOR NEXT [...] facilitated with verbal a (more content not included)...[facility]12-17-2024 History of Present illness Narrative* Sarah Merchant, [...] for Episode of Care: created on 11/15/23 [place] in home exercise program. Patient will demonstrate [...] Patient to be seen for Therapeutic exercise (79707), Neuromuscular re-education (05149), Therapeutic activities (04813), Self-group home management (99402), Gait Training (96847), Patient/Family/Caregiver Education, General Conditioning PLAN FOR NEXT [...] 1336 Session Stop Time : 1420 Sarah Merchant, PT documented in this encounterKettering Health [facility]12-09-2024 History of Present illness Narrative* Sharon Jarrett APRN.STEREOPTIC PROJECTION TOPOGRAPHER - 04/10/2024 4:00 PM EST FOLLOW UP VISIT - ENDOSCOPY Michael Meier 1940 [id number] REFERRING PHYSICIAN: No referring provider defined for [...] needed for worsening/no improvement. Sharon Jarrett APRN.CARMELINA documented in this encounterKettering Health [facility]12-09-2024 NoteHNO ID: [id number] Author: SHARON JARRETT APRN.CARMELINA Service: ? Author Type: Nurse Practitioner Type: Progress Notes Filed: 04/10/2024 16:04 Note Text: FOLLOW UP VISIT - ENDOSCOPY Michael Meier 1940 [id number] REFERRING PHYSICIAN: No referring provider defined for [...] as needed for worsening/no improvement. Sharon Jarrett APRN.[facility]11-29-2024 History and physical note* Raymundo De León MD - 03/31/2024 11:15 AM EST HISTORY AND PHYSICAL Michael Meier : 1940 REFERRING PHYSICIAN: Michael Puga [address] [place] [address] CHIEF COMPLAINT: Patient presents with: Consult: EGD [...] was 01/[address] De León at [facility] Sedation:Midazolam 4 mg IV, Fentanyl 100 micrograms [...] COMPARTMENTS 11/15/2009 Knee replacement, total -Left - [facility] ARTHRP KNE CONDYLE&PLATU MEDIAL&LAT COMPARTMENTS 12/30/2009 Right knee replaced COLONOSCOPY FLX DX W/COLLJ SPEC WHEN PFRMD 06/29/2017 Colonoscopy EGD 10/17/2020 EGD W/O [facility] SPEC VARICIES INJ 01/08/2022 ESOPHAGOGASTRODUODENOSCOPY TRANSORAL DIAGNOSTIC [...] edited and updated as necessary. Sharon Jarrett APRN.STEREOPTIC PROJECTION TOPOGRAPHER UPDATED HISTORY AND PHYSICAL EXAMINATION SERVICE DATE: 03/31/2024 SERVICE TIME: 10:46 AM SENSITIVE EXAMINATION CONSENT: The sensitive examination was discussed with the Patient or Patient's Authorized Pedigree Researcher. Asapplicable, any other physician, advance practice provider, medical student, or other health professional student that will be observing or involved in the sensitive examination for educational or training purposes was discussed with the Patient or Authorized Pedigree Researcher. The Patient or Authorized Pedigree Researcher has agreed to proceed with the sensitive [...] DATE: March 31, 2024 TIME: 10:46 AM [facility]11-29-2024 History and physical note* Raymundo De León MD - 03/31/2024 11:15 AM EST HISTORY AND PHYSICAL Michael Meier : 1940 REFERRING PHYSICIAN: Michael Puga [address] [facility] [address] CHIEF COMPLAINT: Patient presents with: Consult: EGD [...] was 01/[address] De León at [facility] Sedation:Midazolam 4 mg IV, Fentanyl 100 micrograms [...] CONDYLE&PLATU MEDIAL&LAT COMPARTMENTS 11/15/2009 Knee replacement, total -[facility] ARTHRP KNE CONDYLE&PLATU MEDIAL&LAT COMPARTMENTS 12/30/2009 Right knee replaced COLONOSCOPY FLX DX W/COLLJ SPEC WHEN PFRMD 06/29/2017 Colonoscopy EGD 10/17/2020 EGD W/O [facility] SPEC VARICIES INJ 01/08/2022 ESOPHAGOGASTRODUODENOSCOPY [...] edited and updated as necessary. Sharon Jarrett APRN.CNP UPDATED HISTORY AND PHYSICAL EXAMINATION SERVICE DATE: 03/31/2024 SERVICE TIME: 10:46 AM SENSITIVE EXAMINATION CONSENT: The sensitive examination was discussed with the Patient or Patient's Authorized Pedigree Researcher. Asapplicable, any other physician, advance practice provider, medical student, or other health professional student that will be observing or involved in the sensitive examination for educational or training purposes was discussed with the Patient or Authorized Pedigree Researcher. The Patient or Authorized Pedigree Researcher has agreed to proceed with the sensitive [...] 2024 TIME: 10:46 AM documented in this encounterKettering Health [facility]11-25-2024 Instructions* Patient Instructions* Mary Foster APRN.CNP - 03/27/2024 2:22 PM EST Images from the original note were not included. [facility] PATIENT PREOPERATIVE INSTRUCTIONS Raymundo De León MD has scheduled you for your procedure at this surgery center: [facility]: [phone] -- [address] [facility] [address]. Please read below carefully for your personalized [...] office. If you are currently using a vlol-zuf-lwpz injectable or oral medication for diabetes or [...] Procedures: - YOU MUST HAVE A RESPONSIBLE MUSIC MANAGER TAKE YOU HOME. A EQUIPMENT SPECIALIST OR REEL STRIPPER CANNOT BE MADE A RESPONSIBLE MUSIC MANAGER. - We recommend that a responsible person [...] Advance Directive, please fax a copy to [phone] or email to for it to be [...] day. Mary Foster APRN.CNP documented in this encounterKettering Health [facility]11-25-2024 History and physical note * Mary Foster [...] Assessment: c/w statin Cardiac resynchronization therapy pacemaker (CAS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-P) in place Assessment: s/p 10/2021 ICD placement, [...] large neck Non-male patient STOP-Bang Score: 2 [id number] Score: Age: >=75 Sex: female CHF history: No Hypertension history: Yes Stroke/TIA/thromboembolism history: Yes Vascular disease history: No Diabetes history: No [id number] Score: 6 ARISCAT Score: Age: >80 Preoperative [...] - ANESTHESIA PLAN Anesthetic Plan: other Beta Nicolle Monitoring Plan Post Procedure Analgesic Plan Prepared [...] female who is scheduled for colonoscopy at [facility] of Dr. Raymundo De León for consultation. My final recommendation will be communicated backto the requesting physician by way of shared medical record or letter. Subjective The patient has the following: COVID-19 Immunization Status Overdue - Covid-19 Vaccine () Overdue since 01/02/2024 10/14/2023 Postponed until 10/13/2024 by Marisol Cano LPN (Declined at this time) 04/05/2023 Imm Admin: COVID-19 vaccine, age 12+ yr ([employer] [facility]) 06/04/2022 Postponed until 06/04/2023 by Marisol Cano LPN (Declined at this time) Only the first 3 history entries have been loaded, but more history exists. CHIEF COMPLAINT: Pre-op exam HPI: Michael Meier is a 83 year old seen for PAC due to scheduled above surgery because of epigastric pain. 03/13/2024, Sharon Jarrett, CARMELINA HPI: Michael is a 83 year old [...] was 01/[address] De León at [facility] Sedation:Midazolam 4 mg IV, Fentanyl 100 micrograms [...] CAD, CHF, congenital heart defect, DVT/PE, recent [place], open heart surgery and valve surgery. GI: Positive for: GERD (on rx) Negative for: abdominal pain, dysphagia, hepatitis, irritable bowel syndrome, inflammatory bowel disease, liver disease, nausea, vomiting and ETOH >2 drinks/day. : No history of dysuria, frequency or incontinence, stones or chronic kidney disease. No difficulty urinating, nocturia > 1 time per night or hematuria. SCIENTIFIC INFORMATICS ANALYST: Negative for abnormal vaginal bleeding, abnormal vaginal [...] CONDYLE&PLATU MEDIAL&LAT COMPARTMENTS 11/15/2009 Knee replacement, total [facility] ARTHRP KNE CONDYLE&PLATU MEDIAL&LAT COMPARTMENTS 12/30/2009 Right knee replaced COLONOSCOPY FLX DX W/COLLJ SPEC WHEN PFRMD 06/29/2017 Colonoscopy EGD 10/17/2020 EGD W/O [facility] SPEC VARICIES INJ 01/08/2022 ESOPHAGOGASTRODUODENOSCOPY [...] 8760 hour(s)). Recent Results (from the past 14089 hour(s)) ECHO Collection Time: 06/08/22 1:56 PM [...] 27, 2024 TIME: 2:20 PM PAGER/CONTACT #: [facility]11-25-2024 History and physical note* Mary Foster APRN.CNP [...] Assessment: c/w statin Cardiac resynchronization therapy pacemaker (CAS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-P) in place Assessment: s/p 10/2021 ICD placement, 02/02/24 EF 60%, Pt has 6.5 years battery life remaining. 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 Last interrogation scanned into chart from 01/28/24 A-fib (HCC) Assessment: paroxymal, following WHG, daily ASA therapy Pulmonary hypertension (HCC) Assessment: moderate, RSVP 66mmHg 02/02/24 TIA (transient ischemic attack) Assessment: hx 2019, daily ASA Disorder of carotid artery (HCC) [...] large neck Non-male patient STOP-Bang Score: 2 [id number] Score: Age: >=75 Sex: female CHF history: No Hypertension history: Yes Stroke/TIA/thromboembolism history: Yes Vascular disease history: No Diabetes history: No [id number] Score: 6 ARISCAT Score: Age: >80 Preoperative [...] - ANESTHESIA PLAN Anesthetic Plan: other Beta Nicolle Monitoring Plan Post Procedure Analgesic Plan Prepared [...] female who is scheduled for colonoscopy at [facility] of Dr. Raymundo De León for [...] Imm Admin: COVID-19 vaccine, age 12+ yr ([employer] [place]) 06/04/2022 Postponed until 06/04/2023 by Marisol Cano LPN (Declined at this time) Only the first 3 history entries have been loaded, but more history exists. CHIEF COMPLAINT: Pre-op exam HPI: Michael Meier is a 83 year old seen for PAC due to scheduled above surgery because of epigastric pain. 03/13/2024, Sharon Jarrett, STEREOPTIC PROJECTION TOPOGRAPHER HPI: Michael is a 83 year old [...] was 01/[address] De León at [facility] Sedation:Midazolam 4 mg IV, Fentanyl 100 micrograms [...] CAD, CHF, congenital heart defect, DVT/PE, recent [place], open heart surgery and valve surgery. GI: Positive for: GERD (on rx) Negative for: abdominal pain, dysphagia, hepatitis, irritable bowel syndrome, inflammatory bowel disease, liver disease, nausea, vomiting and ETOH >2 drinks/day. : No history of dysuria, frequency or incontinence, stones or chronic kidney disease. No difficulty urinating, nocturia > 1 time per night or hematuria. SCIENTIFIC INFORMATICS ANALYST: Negative for abnormal vaginal bleeding, abnormal vaginal [...] COMPARTMENTS 11/15/2009 Knee replacement, total -Left - [facility] ARTHRP KNE CONDYLE&PLATU MEDIAL&LAT COMPARTMENTS 12/30/2009 Right knee replaced COLONOSCOPY FLX DX W/COLLJ SPEC WHEN PFRMD 06/29/2017 Colonoscopy EGD 10/17/2020 EGD W/O [facility] SPEC VARICIES INJ 01/08/2022 ESOPHAGOGASTRODUODENOSCOPY TRANSORAL DIAGNOSTIC [...] 8760 hour(s)). Recent Results (from the past 56759 hour(s)) ECHO Collection Time: 06/08/22 1:56 PM [...] 2:20 PM PAGER/CONTACT #: documented in this encounterKettering Health [facility]11-21-2024 NoteHNO ID: [id number] Author: SARAH MERCHANT PT Service: ? Author Type: Physical Therapist Type: Progress Notes Filed: 03/23/2024 14:10 Note Text: Episode Visit Count: 17 Therapist That Will Accept/Oversee The Plan Of Care: Marilee Merhcant Start of Care Date: 11/15/23 Onset Date: [...] increased mobility/activity at home. needs recert after 12/16 SUBJECTIVE: doing ok today. 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 Author [...] on 11/15/23 through 01/14/24, extended thru 04/17/24 [place] in home exercise program. Patient will demonstrate [...] Patient to be seen for Therapeutic exercise (80902), Neuromuscular re-education (78186), Therapeutic activities (84385), Self-group home management (87566), Gait Training (74683), Patient/Family/Caregiver Education, General Conditioning PLAN FOR NEXT [...] L3x11' seat 8 2: shuttle leg press 3lvswySy2', SL 4bandsR/L 20xea (increased difficulty L vs [...] from mat table wi (more content not included)...[facility]11-18-2024 History of Present illness Narrative* Sarah Merchant, [...] on 11/15/23 through 01/14/24, extended thru 04/17/24 [place] in home exercise program. Patient will demonstrate [...] Patient to be seen for Therapeutic exercise (03656), Neuromuscular re-education (58708), Therapeutic activities (39257), Self-group home management (77700), Gait Training (61785), Patient/Family/Caregiver Education, General Conditioning PLAN FOR NEXT [...] L3x11' seat 8 2: shuttle leg press 4acrewPm8', SL 4bandsR/L 20xea (increased difficulty L vs [...] objective for details, discussed progress/deficits, plans/options for advanced nursing professor Intervention: Patient was educated in proper exercise [...] Neuromuscular Re-Education: 1: standing wt-shifts ant/post with FREEZER MACHINE OPERATOR (tendency for posterior LOB) 2: static stance [...] 1502 Sarah Merchant PT documented in this encounterKettering [facility]11-14-2024 NoteHNO ID: [id number] Author: SARAH MERCHANT, PT Service: ? Author [...] wt-shifted R/L 10xea 6: shuttle leg press 5conoqYa3', SL 5bandsR/L 20x (increased difficulty R vs L) 7: shuttle calf raises 0keyalR16u 8: supine hip ABd with orange TB [...] 1248 Session Stop Time : 1329 Sarah Shonda [facility]11-14-2024 History of Present illness Narrative* Sarah Merchant, [...] wt-shifted R/L 10xea 6: shuttle leg press 8vjntxHf9', SL 5bandsR/L 20x (increased difficulty R vs L) 7: shuttle calf raises 5obnfxQ10d 8: supine hip ABd with orange TB [...] 1329 Sarah Merchant PT documented in this encounterKettering Health [facility]11-12-2024 NoteHNO ID: [id number] Author: JOY SUN PTA Service: ? Author Type: Telephone Lineman Type: Progress Notes Filed: 03/14/2024 10:47 Note [...] Nustep seat 8 lvl 2 10 minutes STEAM DRIER TENDER in constant attendence monitoring technique and reviewing HEP 2: shuttle leg press 5qlontOt3', SL 4bands 20x 3: shuttle calf raises [...] Session Stop Time : 1045 Joy [facility] History of Present illness Narrative* Joy Sun PTA - 03/14/2024 10:46 AM EST Episode Visit [...] Nustep seat 8 lvl 2 10 minutes STEAM DRIER TENDER in constant attendence monitoring technique and reviewing HEP 2: shuttle leg press 1dwhbkQw9', SL 4bands 20x 3: shuttle calf raises [...] 1045 Joy Sun PTA documented in this encounterKettering [facility]11-11-2024 Telephone encounter Note * Telephone Encounter - Joshua Mcdowell - 03/13/2024 2:43 PM EST 03-31-2024 EGD Elizabeth Joshua Mcdowell [facility]11-11-2024 Miscellaneous Notes* Telephone Encounter - Joshua Mcdowell - 03/13/2024 2:43 PM EST 03-31-2024 EGD Elizabeth Joshua Mcdowell documented in this encounterKettering Health [facility]11-11-2024 History of Present illness Narrative* Sharon Jarrett APRN.CARMELINA - 03/13/2024 2:30 PM EST HISTORY AND PHYSICAL Michael Meier : 1940 REFERRING PHYSICIAN: Michael Puga [address] [facility] [address] CHIEF COMPLAINT: Patient presents with: Consult: EGD [...] was 01/[address] De León at [facility] Sedation:Midazolam 4 mg IV, Fentanyl 100 micrograms [...] COMPARTMENTS 11/15/2009 Knee replacement, total -Left - [facility] ARTHRP KNE CONDYLE&PLATU MEDIAL&LAT COMPARTMENTS 12/30/2009 Right knee replaced COLONOSCOPY FLX DX W/COLLJ SPEC WHEN PFRMD 06/29/2017 Colonoscopy EGD 10/17/2020 EGD W/O [facility] SPEC VARICIES INJ 01/08/2022 ESOPHAGOGASTRODUODENOSCOPY [...] necessary. Sharon Jarrett APRN.CARMELINA documented in this encounterKettering Health [facility]11-11-2024 NoteHNO ID: [id number] Author: SHARON JARRETT APRN.CARMELINA Service: ? Author Type: Nurse Practitioner Type: Progress Notes Filed: 03/13/2024 14:47 Note Text: HISTORY AND PHYSICAL Michael Meier : 1940 REFERRING PHYSICIAN: Michael Puga [address] [facility] [address] CHIEF COMPLAINT: Patient presents with: Consult: EGD [...] was 01/[address] De León at [facility] Sedation:Midazolam 4 mg IV, Fentanyl 100 micrograms [...] ACETBLR/PROX FEM PROSTC AGRFT/ALGRFT Left 07/2016 AR[facility]RP [facility] CONDYLEANDPLATU MEDIALANDLAT COMPARTMENTS 11/15/2009 Knee replacement, total -[facility] ARTHRP KATIE MOSS (more content not included)...[facility] 03-09-2024 Telephone encounter Note* Telephone Encounter - Sultana Catalan RN - 03/09/2024 3:13 PM EST Called pt and notified. [facility]11-07-2024 Miscellaneous Notes* Telephone Encounter - Sultana Catalan RN - 03/09/2024 3:13 PM EST Called pt and notified. * Telephone Encounter - Michael Puga DO - 03/08/2024 9:35 PM EST Please inform patient Michael Puga DO * Telephone Encounter - Mary Lopez LPN - 03/08/2024 10:01 AM EST Patient does not meet Medicare Guidelines to have the Wheelchair covered by insurance. States that patient needs to require a wheelchair for most of her daily needs. According to OV note they received it does not appear that she does. Please advise. documented in this encounterKettering Health [facility]11-06-2024 Telephone encounter Note * Telephone Encounter - Michael Puga DO - 03/08/2024 9:35 PM EST Please inform patient Michael Puga DO [facility]11-06-2024 Telephone encounter Note* Telephone Encounter - Mary Lopez LPN - 03/08/2024 10:01 AM EST Patient does not meet Medicare Guidelines to have the Wheelchair covered by insurance. States that patient needs to require a wheelchair for most of her daily needs. According to [facility] note they received it does not appear that she does. Please advise. [facility]10-31-2024 NoteHNO ID: [id number] Author: SARAH MERCHANT PT Service: ? Author [...] L2x15' seat 9 2: shuttle leg press 6zspfdZq5', SL 4bandsL 20x, 1uzrfcL65l 3: shuttle calf raises 6bandsB 10x 4: [...] Session Stop Time : 1334 Sarah Merchant [facility]10-31-2024 History of Present illness Narrative* Sarah Merchant, [...] L2x15' seat 9 2: shuttle leg press 9gbbzaKo5', SL 4bandsL 20x, 3cpnxlN55d 3: shuttle calf raises 6bandsB 10x 4: [...] 1334 Sarah Merchant PT documented in this encounterKettering [facility]10-31-2024 Telephone encounter Note * Telephone Encounter - Bhavna Arauz RN - 03/02/2024 1:47 PM EDT Patient calls and notified of below. Voices understanding. Bhavna Arauz RN [facility]10-31-2024 Miscellaneous Notes* Telephone Encounter - Bhavna Arauz RN - 03/02/2024 1:47 PM EDT Patient calls and notified of below. Voices understanding. Bhavna Arauz RN * Telephone Encounter - Jacque Machuca MA - 03/02/2024 1:28 PM EDT Faxed to [place]. Left message to return call. Please notify patient. Jacque Machuca MA * Telephone Encounter - Michael Puga DO - 03/01/2024 10:50 PM EDT Fax my office note from today and standard [facility] andthen notify her Michael Puga DO documented in this encounterKettering [facility]10-31-2024 Telephone encounter Note * Telephone Encounter - Jacque Machuca MA - 03/02/2024 1:28 PM EDT Faxed to [place]. Left message to return call. Please notify patient. Jacque Machuca MA [facility]10-30-2024 Telephone encounter Note* Telephone Encounter - Michael Puga DO - 03/01/2024 10:50 PM EDT Fax my office note from today and standard wheelchair to [facility] listed andthen notify her Michael Puga DO [facility]10-30-2024 NoteHNO ID: [id number] Author: MICHAEL PUGA DO Service: ? Author [...] at 1.6 with recent lab check at [employer] office in Jan at [facility], she is using her Bipap each [...] Chronic dyspnea, has been fully evaluated by [employer] whom doesn't feel this is due to [...] COMPARTMENTS 11/15/2009 Knee replacement, total -Left - [facility] ARTHRP KNE CONDYLEANDPLATU MEDIALANDLAT COMPARTMENTS 12/30/2009 Right knee replaced COLONOSCOPY FLX DX W/COLLJ SPEC WHEN PFRMD 06/29/2017 Colonoscopy EGD 10/17/2020 EGD W/O [facility] SPEC VARICIES INJ 01/08/2022 ESOPHAGOGASTRODUODENOSCOPY TRANSORAL DIAGNOSTIC [...] by mouth once daily (more content not included)...[facility] 03-01-2024 History of Present illness Narrative* Michael Puga, DO - 03/01/2024 10:32 PM EDT CC: Michael [...] at 1.6 with recent lab check at [employer] office in Jan at [facility], she is using her Bipap each [...] Chronic dyspnea, has been fully evaluated by [employer] whom doesn't feel this is due to [...] CONDYLE&PLATU MEDIAL&LAT COMPARTMENTS 11/15/2009 Knee replacement, total -[facility] ARTHRP KNE CONDYLE&PLATU MEDIAL&LAT COMPARTMENTS 12/30/2009 Right knee replaced COLONOSCOPY FLX DX W/COLLJ SPEC WHEN PFRMD 06/29/2017 Colonoscopy EGD 10/17/2020 EGD W/O [facility] SPEC VARICIES INJ 01/08/2022 ESOPHAGOGASTRODUODENOSCOPY [...] plan. See patient instructions. Michael Puga DO [address] [place] [address] documented in this encounterKettering Health [facility]10-17-2024 NoteHNO ID: [id number] Author: SARAH MERCHANT, PT Service: ? Author [...] PLAN OF CARE UPDATE: Assessment: Michael Deras Kvngyuko demonstrates improvements in rising from a chair, [...] on 11/15/23 through 01/14/24, extended thru 04/17/24 [place] in [place] exercise program. Patient will demonstrate [...] Patient to be seen for Therapeutic exercise (95992), Neuromuscular re-education (55689), Therapeutic activities (36533), Self-group home management (09098), Gait Training (84958), Patient/Family/Caregiver Education, General Conditioning PLAN FOR NEXT [...] hip ABd 20xR 6: shuttle leg press 8kzelxEe0' (30 reps), SL 5bandsR/L 10xea 7: shuttle calf raises 5bandsB 15x 8: B calf stretch on slant board x1' 9: recheck - see objective for details, discussed progress AND deficits, plans/options for advanced nursing professor Intervention: Patient was educated in proper exercise technique and purpose for exercises. Skilled judgment was used in selection of appropriate interventions. Correct performance of therapeutic exercises was facilitated with verbal and visual cuing. Educated patient on rationale for performing exercises in rega (more content not included)...[facility]10-17-2024 History of Present illness Narrative* Sarah Merchant, [...] REPORT PLAN OF CARE UPDATE: Assessment: Michael Augusta Meier demonstrates improvements in rising from a [...] on 11/15/23 through 01/14/24, extended thru 04/17/24 [place] in home exercise program. Patient will demonstrate [...] Patient to be seen for Therapeutic exercise (50910), Neuromuscular re-education (30689), Therapeutic activities (18280), Self-group home management (55202), Gait Training (26667), Patient/Family/Caregiver Education, General Conditioning PLAN FOR NEXT [...] hip ABd 20xR 6: shuttle leg press 0zksmaRc8' (30 reps), SL 5bandsR/L 10xea 7: shuttle calf raises 5bandsB 15x 8: B calf stretch on slant board x1' 9: recheck - see objective for details, discussed progress & deficits, plans/options for advanced nursing professor Intervention: Patient was educated in proper exercise [...] 1640 Sarah Merchant PT documented in this encounterKettering Health [facility]10-14-2024 NoteHNO ID: [id number] Author: WILFRED MCCLELLAN PTA Service: ? Author Type: Telephone Lineman Type: Progress Notes Filed: 02/14/2024 16:35 Note [...] Session Stop Time : 1404 Wilfred Mcclellan [facility]AM[facility]10-14-[facility] History of Present illness Narrative* Wilfred Mcclellan [...] hip extension and hip flexion vs manual emowafvabn37 x each 6: long sitting right /left [...] 1404 Wilfred Mcclellan PTA documented in this encounterKettering Health [facility]10-10-2024 NoteHNO ID: [id number] Author: SARAH MERCHANT PT Service: ? Author [...] L3x10' seat 8 2: shuttle leg press 4flwhlAm2', 5fxajkV61o, SL 4bands R/L 20xea 3: shuttle calf raises 9jvgevG37u 4: B calf stretch on slant board [...] Session Stop Time : 1334 Sarah Merchant [facility]10-10-2024 History of Present illness Narrative* Sarah Merchant, [...] L3x10' seat 8 2: shuttle leg press 5ctknmSo2', 5ghqreY70h, SL 4bands R/L 20xea 3: shuttle calf raises 6swagxR43q 4: B calf stretch on slant board [...] 1334 Sarah Merchant PT documented in this encounterKettering [facility]10-07-2024 NoteHNO ID: [id number] Author: SARAH MERCHANT PT Service: ? Author [...] L3x10' seat 8 2: shuttle leg press 9dvrqbVm9', SL 4bands R/L 20xea 3: shuttle calf raises 6wyffjD63l 4: ASLR 2#L/R 20xea 5: supine hip [...] Session Stop Time : 1457 Sarah Merchant [facility]10-07-2024 History of Present illness Narrative* Sarah Merchant, [...] L3x10' seat 8 2: shuttle leg press 8irxgiMj3', SL 4bands R/L 20xea 3: shuttle calf raises 2aottmQ87t 4: ASLR 2#L/R 20xea 5: supine hip [...] 1457 Sarah Merchant PT documented in this encounterKettering Health [facility]09-30-2024 NoteHNO ID: [id number] Author: SARAH MERCHANT PT Service: ? Author [...] at ankles 15x 6: shuttle leg press 6scljhGb1', SL 6 gechwX73x, 0uizzzU7i, 3nkiviR25c 7: shuttle calf raises 9ujgkoV45k 8: Nu-step L3x10' seat 8 Skilled Intervention: [...] 1422 Session Stop Time : 1512 Sarah Shonda [facility]09-30-2024 History of Present illness Narrative* Sarah Merchant, [...] at ankles 15x 6: shuttle leg press 0dcfwmHn9', SL 6 jkfibH19j, 0muclxQ8z, 6uggspX72p 7: shuttle calf raises 5fnhdjV68t 8: Nu-step L3x10' seat 8 Skilled Intervention: [...] Time (minutes): 50 Session Start Time : 1421 Session Stop Time : 1511 Sarah Merchant PT documented in this encounterKettering Health [facility]09-25-2024 NoteHNO ID: [id number] Author: WILFRED MCCLELLAN PTA Service: ? Author Type: Telephone Lineman Type: Progress Notes Filed: 01/26/2024 18:32 Note [...] patient reports less fatigue today also reports window repairer increased her potassium , patient reports increased [...] 1520 Session Stop Time : 1600 Wilfred TOSHIA [facility]cc[facility]anMount [facility] History of Present illness Narrative* Wilfred Mcclellan, STEAM DRIER TENDER - 01/26/2024 6:30 PM EDT Episode Visit [...] patient reports less fatigue today also reports window repairer increased her potassium , patient reports increased [...] 1600 Wilfred Mcclellan PTA documented in this encounterKettering Health [facility]09-17-2024 NoteHNO ID: [id number] Author: SARAH MERCHANT, FRANTZ Service: ? Author [...] on 11/15/23 through 01/14/24, extended thru 04/17/24 [place] in home exercise program. Patient will demonstrate [...] Patient to be seen for Therapeutic exercise (16456), Neuromuscular re-education (88950), Therapeutic activities (55986), Self-group home management (35133), Gait Training (20699), Patient/Family/Caregiver Education, General Conditioning PLAN FOR NEXT [...] AND SOB with activity. has f/u with window repairer this month AND PCP next month. says [...] fatigue AND SOB. advised f/u with PCP, window repairer, career center advisor prn Skilled Intervention: Patient was educated in proper exer (more content not included)...[facility]09-17-2024 History of Present illness Narrative* Sarah Merchant, [...] on 11/15/23 through 01/14/24, extended thru 04/17/24 [place] in home exercise program. Patient will demonstrate [...] Patient to be seen for Therapeutic exercise (39352), Neuromuscular re-education (50385), Therapeutic activities (90129), Self-group home management (81033), Gait Training (27336), Patient/Family/Caregiver Education, General Conditioning PLAN FOR NEXT [...] & SOB with activity. has f/u with window repairer this month & PCP next month. sayvalerie [...] fatigue & SOB. advised f/u with PCP, window repairer, career center advisor prn Skilled Intervention: Patient was educated in [...] 1430 Sarah Merchant PT documented in this encounterKettering Health [facility]09-10-2024 Telephone encounter Note * Telephone Encounter - Julianna Cano LPN - 01/11/2024 10:23 AM EDT Order faxed as below. [facility]09-10-2024 Miscellaneous Notes* Telephone Encounter - Julianna Moreno [...] Flores. Carie Lora RN documented in this encounterKettering Health [facility]09-10-2024 Telephone encounter Note * Telephone Encounter - Nunu Gonzalez PA-C - 01/11/2024 9:41 AM EDT Rx ordered, please fax. Nunu Gonzalez PA-C [facility]09-09-2024 Telephone encounter Note* Telephone Encounter - Carie Lora RN - 01/10/2024 2:39 PM EDT Patient calling with request for script for standard wheelchair for weakness and gait instability due to back problems. If agree, please fax script to Kevin Flores. Carie Lora RN [facility]08-12-2024 NoteHNO ID: [id number] Author: SARAH MERCHANT, FRANTZ Service: ? Author [...] 4: bridging 10x2 5: shuttle leg press 2sqctoGo0', SL 5bandsL/R 15xea 6: shuttle calf raises [...] : 153 Session Stop Time : 1632 aSrah Merchant [facility]08-12-2024 History of Present illness Narrative* Sarah Merchant, [...] 4: bridging 10x2 5: shuttle leg press 2rdgdaXt9', SL 5bandsL/R 15xea 6: shuttle calf raises [...] 1632 Sarah Merchant PT documented in this encounterKettering Health [facility]08-06-2024 NoteHNO ID: [id number] Author: WILFRED MCCLELLAN PTA Service: ? Author Type: Telephone Lineman Type: Progress Notes Filed: 12/07/2023 17:49 Note [...] Session Stop Time : 1730 Wilfred Mcclellan [facility]AM[facility]08-06-2024 History of Present illness Narrative* Wilfred Mcclellan [...] Mcclellan PTA - 12/07/2023 5:18 PM EDT Program_ID:[id number] Access Code: [email or web address] URL: [email or web address] Date: 12-07-2023 Prepared By: Margoht Mcclellan Program Notes Exercises - Seated Hip Abduction - 1-2 x daily - 5 x weekly - 2-3 sets - 10 reps documented in this encounterKettering Health [facility]07-31-2024 Instructions* Patient Instructions* Michael Puga DO - 12/01/2023 2:00 PM EDT Make sure you are taking: Vitamin C 500-100 mg a day Zinc 15-25 mg a day Vitamin D3 at least 1000 international unit(s) a day Vitamin B12 at least 500-1000 mcg a day documented in this encounterKettering Health Troy07-31-2024 NoteHNO ID: [id number] Author: MICHAEL PUGA DO Service: ? Author [...] FEM PROSTC AGRFT/ALGRFT; Left 11/15/2009: ARTHRP KATIE CONDYLEGEORGIANAPLATU MEDIALANDLAT COMPARTMENTS Comment: Knee replacement, total -Left - [facility] 12/30/2009: ARTHRP KATIE CONDYLEANDPLATU MEDIALANDLAT COMPARTMENTS Comment: Right knee replaced 06/29/2017: COLONOSCOPY FLX DX W/COLLJ SPEC WHEN PFRMD Comment: Colonoscopy 10/17/2020: EGD Comment: 01/08/2022: EGD W/O [facility] SPEC VARICIES INJ 11/29/2000: ESOPHAGOGASTRODUODENOSCOPY TRANSORAL DIAGNOSTIC [...] use: No ROS: See (more content not included)...[facility]07-31-2024 History of Present illness Narrative* Michael Puga, - 12/01/2023 1:55 PM EDT CC: Michael [...] CONDYLE&PLATU MEDIAL&LAT COMPARTMENTS Comment: Knee replacement, total [facility] 12/30/2009: ARTHRP KNE CONDYLE&PLATU MEDIAL&LAT COMPARTMENTS Comment: Right knee replaced 06/29/2017: COLONOSCOPY FLX DX W/COLLJ SPEC WHEN PFRMD Comment: Colonoscopy 10/17/2020: EGD Comment: 01/08/2022: EGD W/O [facility] SPEC VARICIES INJ 11/29/2000: ESOPHAGOGASTRODUODENOSCOPY [...] plan. See patient instructions. Michael Puga DO [address] [place] [address] documented in this encounterKettering Health [facility]07-26-2024 Telephone encounter Note * Telephone Encounter - Loli Adamson RN - 11/26/2023 8:41 AM EDT Pt returned call and given provider's message below with verbalized understanding. Patient reports her phone on previous call. [facility]07-26-2024 Miscellaneous Notes* Telephone Encounter - Loli Adamson [...] Puga. Asia Rosales APRN.CARMELINA documented in this encounterKettering Health [facility]07-26-2024 Telephone encounter Note * Telephone Encounter - Jacque Machuca MA - 11/26/2023 8:24 AM EDT Started to speak with patient and other line disconnected. Please try again. Jacque Machuca MA [facility]07-26-2024 Telephone encounter Note* Telephone Encounter - Asia Rosales APRN.CNP - 11/26/2023 6:55 AM EDT Please let her know that overall no acute concerns with her labs, she can discuss in more detail ather upcoming appt with Dr. Puga. Asia Rosales APRN.CARMELINA [facility] Work Phone: 1(290) 647-793407-25-2024 NoteHNO ID: [id number] Author: SARAH MERCHANT, FRANTZ Service: ? Author [...] Ankle Eversion: 4+/5 Gait Gait Device: Cane ([employer] cane) Balance Static Standing Balance: Narrow Base [...] Session Stop Time : 922 Sarah Merchant [facility]07-25-2024 History of Present illness Narrative* Sarah Merchant, [...] Ankle Eversion: 4+/5 Gait Gait Device: Cane ([employer] cane) Balance Static Standing Balance: Narrow Base [...] 922 Sarah Merchant PT documented in this encounterKettering Health [facility]07-23-2024 NoteHNO ID: [id number] Author: SARAH MERCAHNT PT Service: ? Author Type: Physical Therapist [...] weakness/instability with SLS 4: shuttle leg press 7nilckRs1', SL 5bandsL/R 10xea 5: shuttle calf raises [...] Session Stop Time : 1501 Sarah Merchant [facility]07-23-2024 History of Present illness Narrative* Sarah Merchant, [...] hipweakness/instability with SLS 4: shuttle leg press 3xghrdIh8', SL 5bandsL/R 10xea 5: shuttle calf raises [...] 1501 Sarah Merchant PT documented in this encounterKettering Health [facility]07-15-2024 NoteHNO ID: [id number] Author: SARAH MERCHANT PT Service: ? Author [...] of Care: created on 11/15/23 through 01/14/24 [place] in home exercise program. Patient will demonstrate [...] Planned: 15 Planned Treatment Interventions: Therapeutic exercise (44724), Neuromuscular re-education (94268), Therapeutic activities (08574), Self-group home management (76475), Gait Training (49221), Patient/Family/Caregiver Education, General Conditioning PLAN FOR NEXT [...] Strength R UE Strength: (more content not included)...[facility] 11-15-2023 History of Present illness Narrative* Sarah [...] of Care: created on 11/15/23 through 01/14/24 [place] in home exercise program. Patient will demonstrate [...] Planned: 15 Planned Treatment Interventions: Therapeutic exercise (52623), Neuromuscular re- education (79403), Therapeutic activities (50636), Self-group home management (28533), Gait Training (67328), Patient/Family/Caregiver Education, General Conditioning PLAN FOR NEXT [...] 1634 Session Stop Time : 1723 Sarah Merchant PT documented in this encounterKettering [facility]06-18-2024 Telephone encounter Note * Telephone Encounter - Julianna Cano LPN - 10/19/2023 9:33 AM EDT [facility] informed. D/c Home O2 faxed to [employer]. [facility]06-18-2024 Miscellaneous Notes* Telephone Encounter - Julianna Moreno LPN - 10/19/2023 9:33 AM EDT [facility] informed. D/c Home O2 faxed to [email or web address]. * Telephone Encounter - Michael Puga DO [...] - 10/18/2023 9:07 AM EDT Bhavna from [facility] calling patient had seen Key Portillo SENIOR ANALYSIS SPECIALIST on 10/14/2023. She started her on Trazodone 50 mg at bedtime. Patient started Trazodone rx Wednesday night and said she did not sleep at all, not helping. Asking if the dose could be increased or changed to something else? Patientsaid Zolpidem made her feel hung over. Patient uses [facility] for her pharmacy. Aware SENIOR ANALYSIS SPECIALIST is out of the office this week. Patient asking to have oxygen taken out of the household, she is not using it at all. [facility] started her on the oxygen and [employer] is her oxygen supplier. Pending order if wanted. Please call Bhavna back response. Please advise documented in this encounterK[facility]06-18-2024 Telephone encounter Note * Telephone Encounter - [...] at bedtime. Authorizing Provider: MICHAEL PUGA DO [facility]06-17-2024 Telephone encounter Note* Telephone Encounter - Nadine Colon LPN - 10/18/2023 9:07 AM EDT Bhavna from [facility] calling patient had seen Key Portillo SENIOR ANALYSIS SPECIALIST on 10/14/2023. She started her on Trazodone 50 mg at bedtime. Patient started Trazodone rx Wednesday night and said she did not sleep at all, not helping. Asking if the dose could be increased or changed to something else? Patientsaid Zolpidem made her feel hung over. Patient uses [facility] for her pharmacy. Aware SENIOR ANALYSIS SPECIALIST is out of the office this week. Patient asking to have oxygen taken out of the household, she is not using it at all. [facility] started her on the oxygen and [employer] is her oxygen supplier. Pending order if wanted. Please call Bhavna back response. Please advise [facility]-17[facility] Telephone encounter Note* Telephone Encounter - Marisol [...] Cano LPN October 18, 2023 8:59 AM [facility]-17-2024 Miscellaneous Notes* Telephone Encounter - Marisol Cano [...] 18, 2023 8:58 AM documented in this encounterKettering [facility]06-17-2024 Telephone encounter Note * Telephone Encounter - Yumiko Blancas - [...] Yumiko Gomez October 18, 2023 8:58 AM [facility]06-13-2024 History of Present illness Narrative* Key Portillo APRN.STEREOPTIC PROJECTION TOPOGRAPHER - 10/14/2023 1:20 PM EDT Chief Complaint Patient presents with: Transition Of Care HPI Michael Meier is a 83 year old female who presents here today for Above Complaints. Michael is an established patient of Dr. Edd DO and myself. Concerns today... Hospital follow-up -- [facility] ER visit on 09/26 d/t SOB. Pt [...] visit will be on Wednesday. Pt and longterm monitoring O2 saturation. Pt has not been [...] COMPARTMENTS 11/15/2009 Knee replacement, total -Left - [facility] ARTHRP KNE CONDYLE&PLATU MEDIAL&LAT COMPARTMENTS 12/30/2009 Right knee replaced COLONOSCOPY FLX DX W/COLLJ SPEC WHEN PFRMD 06/29/2017 Colonoscopy EGD 10/17/2020 EGD W/O [facility] SPEC VARICIES INJ 01/08/2022 ESOPHAGOGASTRODUODENOSCOPY [...] d/t poor sleep. Continue with at home longterm visits. 2. Anxiety - ICD9: 300.00, ICD10: [...] d/t poor sleep. Continue with at home longterm visits. RTO in 1.5 months as scheduled, sooner if needed. Prescription instructions reviewed with patient as applicable. Potential red flag symptoms discussed with the patient. Reviewed appropriate action plan to take if red flag symptoms occur. Patient agreeable to treatment plan. Key Abrams APRN.CARMELINA [address] [place] [address] documented in this encounterKettering Health [facility]06-10-2024 History of Present illness Narrative* Isabella Michel RN - 10/11/2023 1:16 PM EDT TRANSITION CARE MANAGEMENT (TCM) FOLLOW-UP NOTE Provider Action/FYI Patient identified by name and date of : YES Spoke to patient Discharge Network Status: Qgh-ba-Aqateml (OON) Discharge Summary: Pt discharged from [facility] on 10/02/23. Admitted for: Shortness of breath Concerns: Pt reports she is doing well and feeling much improved. She is 96% pulse ox on RA. States the nurse with [facility] states her lungs were clear today. has fam med f/u 10/13. Fruit Press Operator plan for next outreach: TCM will continue to follow. IRENE Education Ordered -: No Isabella Michel RN October 11, 2023 1:16 PM documented in this encounterKettering Health [facility]06-06-2024 Telephone encounter Note * Telephone Encounter - Loli Adamson RN - 10/07/2023 10:23 AM EDT Re-faxed CMP order to [facility] per Ernestine request. Reports they did not receive it yesterday. [facility]-06-[facility]24 Miscellaneous Notes* Telephone Encounter - Loli Adamson RN - 10/07/2023 10:23 AM EDT Re-faxed CMP order to [facility] per Ernestine request. Reports they did not receive it yesterday. * Telephone Encounter - Katharine Paul MA - 10/07/2023 9:14 AM EDT Spoke Ernestine and faxed order * Telephone Encounter - Michael Puga DO - 10/06/2023 10:41 PM EDT Ok to check labs as ordered below If not improving, then will need stool studies/C diff testing Michael Pgua DO * Telephone Encounter - Mary Lopez LPN - 10/06/2023 12:00 PM EDT Ernestine with [facility] calling, she spoke with patient today. Patient is doing well recovering from thepneumonia other than she has had diarrhea for 3 days. Today is the worst day and she is having a BMevery time she is urinating. Ernestine states the biggest concern would be dehydration. Asking if PCP has any recommendation. Please advise. documented in this encounterKettering [facility]06-06-2024 Telephone encounter Note * Telephone Encounter - Katharine Paul MA - 10/07/2023 9:14 AM EDT Spoke Ernestine and faxed order [facility]06-05-2024 Telephone encounter Note* Telephone Encounter - Michael Puga DO - 10/06/2023 10:41 PM EDT Ok to check labs as ordered below If not improving, then will need stool studies/C diff testing Mcihael Puga DO [facility]06-05-2024 Telephone encounter Note* Telephone Encounter - Mary Lopez LPN - 10/06/2023 12:00 PM EDT Ernestine with [facility] calling, she spoke with patient today. Patient is doing well recovering from thepneumonia other than she has had diarrhea for 3 days. Today is the worst day and she is having a BMevery time she is urinating. Ernestine states the biggest concern would be dehydration. Asking if PCP has any recommendation. Please advise. [facility]-05-20[facility] Telephone encounter Note* Telephone Encounter - Katharine Paul MA - 10/06/2023 9:14 AM EDT Nurse from [facility] was notified Katharine Paul MA [facility]06-05-2024 Miscellaneous Notes* Telephone Encounter - Katharine Paul MA - 10/06/2023 9:14 AM EDT Nurse from [facility] was notified Katharine Paul MA * Telephone Encounter - Michael Puga DO - 10/06/2023 9:01 AM EDT Please make sure her Solar Sales Rep is aware of her BLOOD PRESSURE elevation [...] EDT -Bhavna reports pt was admitted to [facility] nursing today. Bhavna reports Nursing will see [...] message/orders. Constance Ervin LPN documented in this encounterKettering Health [facility]06-05-2024 Telephone encounter Note * Telephone Encounter - Michael Puga DO - 10/06/2023 9:01 AM EDT Please make sure her Solar Sales Rep is aware of her BLOOD PRESSURE elevation [...] cold/allergy symptoms. Authorizing Provider: MICHAEL PUGA DO [facility]06-03-2024 Telephone encounter Note* Telephone Encounter - Constance Ervin LPN - 10/04/2023 3:52 PM EDT -Bhavna reports pt was admitted to [facility] nursing today. Bhavna reports Nursing will [...] has lorazepam 0.5 mg tab but advised Bhvana that the medication relaxes her but does not help her sleep. -Pt was sent home on prednisone taper. -Pt is using preservision bid - is this ok -Pt is on O2 from Dr. Alcala. -Pt is not taking Vit D3 1999. CAll Bhavna with provider message/orders. Constance Ervin LPN [facility]06-03-2024 History of Present illness Narrative* Magaly Puri MA - 10/04/2023 11:17 AM EDT POPULATION HEALTH NAVIGATION OUTREACH Action/FYI TCM Hospital Discharge Follow up. TCM Eligible until 10/16/23. Pt cell [phone] Spoke with patient; scheduled appt Reason for [...] 10/04/2023 10:37 AM EDT TRANSITIONAL CARE MANAGEMENT (TCM) COMMUNITY MONITORING PROGRAM Provider Action/FYI: Pt reports she is wearing O2 at 2L at night and 4L during the day. Has some SOB with any exertion and she has ordered to pulse ox. Discussed safe parameters for the pulse ox - 92-93 % and above. Pt states Prednisone rx at discharge, doing breathing treatments diligently. Manny [facility] nursing to visit today. Encouraged pt to bring DC papers to PCP f/u Navigation Team Please assist with scheduling TCM Hospital Discharge Follow up. TCM Eligible until 10/16/23. Pt [phone] Thank you SUMMARY: Discharge Network Status: Ipb-ez-Gqivnti (OON) Discharge Pt discharged from [facility] on 10/02/23. Admitted for: Shortness of breath [...] TCM Home Visit Referral Source of Stratification: [facility] Hospital Admission Status: Discharged Readmission Risk Score: N/A Patient's zip code: N/A Is zip code within program service area: No Patient meets program referral criteria: No Patient does not qualify for High Risk TCM Home Visit program due to: Readmission Risk Score does not meet criteria Disposition: [facility], will provide TCM outreach follow-up for 30-days Isabella Michel RN October 04, 2023 10:40 AM Contact made with patient: Yes Hi my name is Isabella Michel RN and I am calling from the [facility] on behalf of yourPCP, Michael Puga, DO [...] like to speak with a social work service team leader to help give you support for any [...] I will send your request to a cafeteria operator who will contact and assist you with that appointment. This will give you an opportunity to ask any questions or address any concerns youmay have with your PCP. Inform the patient that if they have any questions or concerns prior to that appointment, to call their PCP's office right away. ACTION TAKEN: Patient desires an appointment - Routed to [facility] [[phone]] for schedulingtelehealth visit (telephonic, virtual visit, or [...] 04, 2023 10:51 AM documented in this encounterKettering [facility]05-31-2024 Telephone encounter Note * Telephone Encounter - Jacque Machuca MA - 10/01/2023 3:36 PM EDT Larissa informed. Jacque Machuca MA [facility]05-31-2024 Miscellaneous Notes* Telephone Encounter - Jacque Machuca MA - 10/01/2023 3:36 PM EDT [facility] informed. Jacque Machuca MA * Telephone Encounter - Key Portillo APRN.CNP - 10/01/2023 2:39 PM EDT Yes, PCP will follow. Thank you, Key Portillo APRN.CNP * Telephone Encounter - Mary Lopez LPN - 10/01/2023 11:49 AM EDT Larissa from [facility] calling, patient is being discharged from [facility] tomorrow. She was referred for longterm for O2 management. They plan to see patient Wednesday. Asking if PCP is willing to follow.Please advise. documented in this encounterKettering [facility]05-31-2024 Telephone encounter Note * Telephone Encounter - Key Portillo APRN.CNP - 10/01/2023 2:39 PM EDT Yes, PCP will follow. Thank you, Key Portillo APRN.STEREOPTIC PROJECTION TOPOGRAPHER [facility]05-31-2024 Telephone encounter Note* Telephone Encounter - Mary Lopez LPN - 10/01/2023 11:49 AM EDT Larissa from [facility] calling, patient is being discharged from [facility] tomorrow. She was referred for longterm for O2 management. They plan to see patient Wednesday. Asking if PCP is willing to follow.Please advise. [facility]12-07-2023 History of Present illness Narrative* Michael Puga, - 04/08/2023 9:38 AM EST CC: Michael Meier is a 82 year old female who presents to the office for follow up HPI: At OFFICE VISIT on 09/21/22 Iron deficiency, improving control, taking over the counter iron supplement once a day called Reyna Fe 45 mg a day. No blood [...] have symptoms. Has recently seen Dr. Hickey Solar Sales Rep and had repeat ECHOand other cardiac testing [...] things together such as going to see [employer] and go out to eat. Abnormal thyroid [...] COMPARTMENTS 11/15/2009 Knee replacement, total -Left - [facility] ARTHRP KNE CONDYLE&PLATU MEDIAL&LAT COMPARTMENTS 12/30/2009 Right knee replaced COLONOSCOPY FLX DX W/COLLJ SPEC WHEN PFRMD 06/29/2017 Colonoscopy EGD 10/17/2020 EGD W/O [facility] SPEC VARICIES INJ 01/08/2022 ESOPHAGOGASTRODUODENOSCOPY [...] vaccine - ICD9: V04.89, ICD10: Z23 - [employer] COVID-19 VACCINE ( SEASON) AGE 12+ YR [...] - ICD9: 496, ICD10: J44.9 F/u with Deburring Machine Operator 8. IFG (impaired fasting glucose) - ICD9: [...] 716.99, ICD10: M12.9 Stable, no falls Michael Puga, DO Return if no improvement. Follow up with Michael Puga DO. To ER if develops chest pain, shortness of breath. Discussed risks, benefits, alternatives, and potential side effects of medications. Patient/Guardian expressed understanding and agreed with the plan. See patient instructions. Michael Puga DO [address] [place] [address] documented in this encounterKettering Health [facility]11-30-2023 Miscellaneous Notes* Telephone Encounter - Nadine Colon LPN - 04/01/2023 4:20 PM EST Phoned patient and went over notes from Dr Puga with understanding. * Telephone Encounter - Michael Puga DO - 03/31/2023 8:32 PM EST We called the window repairer office but she will need to further discuss with the specialist as well Michael Puga DO * Telephone Encounter - Loli Adamson RN - 03/31/2023 2:45 PM EST Patient asking if pcp ever communicated with Dr. Hickey about her diltiazem making her tired. Pleaseadvise patient. documented in this encounterKettering Health [facility]09-11-2023 Miscellaneous Notes* Telephone Encounter - Amanda Pratt RN - 01/11/2023 11:25 AM EDT Order and demographics faxed to Dr. Alcala. Patient notified. * Telephone Encounter - Key Portillo APRN.STEREOPTIC PROJECTION TOPOGRAPHER - 01/11/2023 10:18 AM EDT Order placed. Please fax. Thank you, Key Portillo APRN.STEREOPTIC PROJECTION TOPOGRAPHER * Telephone Encounter - Amanda Pratt RN - 01/11/2023 9:57 AM EDT Patient calls to report that at last OV it was discussed that patient needed to have a sleep study done. Patient requesting to have done with Dr. Alcala and needs to have order/reason for testing faxed to [phone]. Noted referral to pulmonary medicine which was completed but no order for sleep study. Not pended. Wasn't sure what provider wanted. Amanda Pratt RN documented in this encounterKettering Health [facility]08-31-2023 Miscellaneous Notes* Telephone Encounter - Chloe Castro LPN - 12/31/2022 8:43 AM EDT Spoke with pt and information listed below given. Pt verbalizes understanding. Transferred pt to cafeteria operator to get apt booked. Chloe Castro LPN [...] I would like her to see the Deburring Machine Operator for opinion to determine if any chance ofasthma or COPD present Michael Puga DO documented in this encounterKettering Health [facility]08-28-2023 History of Present illness Narrative* Lexi Peacock RPFT - 12/28/2022 2:00 PM EDT PULM FUNCTION SMARTBLOCK: Provider: Michael Puga DO Assisting Tech: Lexi Peacock RPFT Spirometry w/BD: 1 documented in this encounterKettering Health Troy08-22-2023 History of Present illness Narrative* Michael Puga [...] he was just recently moved into a nursing home. + fatigue, admits that she doesn't want [...] hydrochlorothiazide which dose was recently increased by Solar Sales Rep. Feels this doesn't make her feel well. Fatigue symptoms, feels she is more isolated for the last 2 years since covid 19 pandemic and limitations with getting out with friends. Also brother Serg is in nursing home/ECF now and she is home alone. Has [...] have symptoms. Has recently seen Dr. Hickey Solar Sales Rep and had repeat ECHOand other cardiac testing [...] COMPARTMENTS 11/15/2009 Knee replacement, total -Left - [facility] ARTHRP KNE CONDYLE&PLATU MEDIAL&LAT COMPARTMENTS 12/30/2009 Right knee replaced COLONOSCOPY FLX DX W/COLLJ SPEC WHEN PFRMD 06/29/2017 Colonoscopy EGD 10/17/2020 EGD W/O [facility] SPEC VARICIES INJ 01/08/2022 ESOPHAGOGASTRODUODENOSCOPY [...] See patient instructions. Michael Puga DO [address] [place] [address] documented in this encounterKettering Health [facility]05-31-2023 Miscellaneous Notes* Telephone Encounter - Asia Rosales APRN.CNP - 09/30/2022 5:39 PM EDT The following [...] filled. No suspiciousactivity was identified. 09/30/2022 by sAia Rosales CNP. * Telephone Encounter - Yvonne Nix Pss - 09/29/2022 9:37 AM EDT Pharmacy verified in [facility] Patient has been identified by name and [...] advise. Yvonne Nix Pss documented in this [facility]02-27-2023 Miscellaneous Notes* Telephone Encounter - Julianna [...] patient. Julianna Valladares Pss documented in this encounterKettering Health [facility]02-20-2023 Instructions* Patient Instructions* Michael Puga DO - 06/22/2022 12:14 PM EST STOP Metformin medication Increase fluid intake to at least 60 oz of water a day Increase protein intake in your diet- protein drink daily Increase iron supplement to twice a day with a meal documented in this [facility]02-20-2023 History of Present illness Narrative* Michael [...] he was just recently moved into a nursing home. + fatigue, admits that she doesn't want [...] hydrochlorothiazide which dose was recently increased by Solar Sales Rep. Feels this doesn't make her feel well. Fatigue symptoms, feels she is more isolated for the last 2 years since covid 19 pandemic and limitations with getting out with friends. Also brother Serg is in nursing home/ECF now and she is home alone. Has [...] counter iron supplement once a day called Reyna Fe 45 mg a day. No blood in stool Having some shortness of breath and fatigue symptoms that are chronic. Has been seeing CardiologistDr. Edlemira. No chest pressure or pain. No fevers [...] COMPARTMENTS 11/15/2009 Knee replacement, total -Left - [facility] ARTHRP KNE CONDYLE&PLATU MEDIAL&LAT COMPARTMENTS 12/30/2009 Right knee replaced COLONOSCOPY FLX DX W/COLLJ SPEC WHEN PFRMD 06/29/2017 Colonoscopy EGD 10/17/2020 EGD W/O [facility] SPEC VARICIES INJ 01/08/2022 ESOPHAGOGASTRODUODENOSCOPY [...] plan. See patient instructions. Michael Puga DO [address] [place] [address] documented in this encounterKettering Health [facility]02-08-2023 Miscellaneous Notes* Telephone Encounter - Carie Lora RN - 06/10/2022 12:43 PM EST Spoke with patient. Given message from provider's office. Patient verbalizes understanding. Carie Lora RN * Telephone Encounter - Jacque Machuca - 06/10/2022 11:49 AM EST Left message for patient to return call. Echo results faxed to [facility] office 06/10/2022 HARIS Machuca * Telephone Encounter - Key Portillo APRN.CNP - 06/10/2022 10:56 AM EST Please call patient and let her know that ECHO shows no acute concerns. I have no ECHO in our system to compare to. Please fax this result to Dr. Hickey's office for review. Thank you, Key Portillo APRN.CNP documented in this encounterKettering Health [facility]02-06-2023 Miscellaneous Notes* Telephone Encounter - Jacque Machuca [...] you, Key Portillo APRN.CNP documented in this encounterKettering Health [facility]02-06-2023 Miscellaneous Notes* Telephone Encounter - Key Portillo APRN.CARMELINA - 06/08/2022 7:48 AM EST I agree with 25 mg tablets. Thank you, Key Portillo APRN.CNP * Telephone Encounter - Nadine Colon LPN - 06/05/2022 3:09 PM EST Stephy from [facility] pharmacy calling asking about HCTZ 12.5 mg 2 daily only was sent for 30,asking to have rx increased to 60 for a month supply. Read office visit notes and said HCTZ 25 mg daily, gave verbal to change rx to 60 for month supply on the rx. * Telephone Encounter - Loli Adamson RN - 06/05/2022 10:44 AM EST Sigifredo Flores reports they received the hctz 12.5 mg Rx take 2 caps daily, disp # 30. Asking doing you want them to give patient the 25 mg caps and disp # 30 or give patient the 12.5 mg caps and disp # 60? Please phone pharmacy with reply. documented in this encounterKettering Health [facility]02-02-2023 Instructions* Patient Instructions* Key Portillo APRN.CNP - 06/04/2022 3:07 PM EST Mounjaro --- weekly Trulcity -- Weekly Victoza -- daily Saxenda -- Daily Start HCTZ 12.5 mg daily for BP and swelling in legs. Follow-up in 1 month to reassess BP. Will assess GLP-1 injection at this time as well. Blood work today. EKG today. Schedule ECHO documented in this encounterKettering Health [facility]02-02-2023 History of Present illness Narrative* Key Portillo [...] CONDYLE&PLATU MEDIAL&LAT COMPARTMENTS 11/15/2009 Knee replacement, total [facility] ARTHRP KNE CONDYLE&PLATU MEDIAL&LAT COMPARTMENTS 12/30/2009 Right knee replaced COLONOSCOPY FLX DX W/COLLJ SPEC WHEN PFRMD 06/29/2017 Colonoscopy EGD 10/17/2020 EGD W/O [facility] SPEC VARICIES INJ 01/08/2022 ESOPHAGOGASTRODUODENOSCOPY [...] Patient agreeable to treatment plan. Key Abrams APRN.CARMELINA [address] [place] [address] documented in this encounterKettering Health [facility]01-31-2023 History of Present illness Narrative* Anita Box MA - 06/02/2022 1:51 PM EST POPULATION HEALTH NAVIGATION OUTREACH Action/FYI [facility] Call in. Received warm transfer from NurseAyden Fontana RN Patient needs: Apt with PCP/Team with in 3 days Health Maintenance and Care Gaps reviewed: N/a - AD on file all other HM up to date Scheduled appointment:Yes with PCP [...] 02, 2022 1:53 PM documented in this encounterKettering Health [facility]01-31-2023 Miscellaneous Notes* Telephone Encounter - Magaly Fontana [...] PCP Within 3 days. Warm transfer to Anita in Navigation. Will route to PCP with patient's request for glucometer from [facility], and possible need to speak with transit planning director/busher helper. Rosaura, you've reached [facility], my name is Magaly Fontana, RN, I'm a registered nurse, and we are [...] any symptoms today? Yes - Go to [facility] Protocol Symptoms present: No energy or [...] breakfast. Requesting glucometer meter and supplies from [facility] in [place] Based on what you've told me, I [...] : N/A Protocols used: Weakness (Generalized) and [id number] documented in this encounterKettering Health [facility]12-27-2022 Miscellaneous Notes* Telephone Encounter - Julianna Cano LPN - 2022 8:47 AM EST Pt. informed . * Telephone Encounter - Michael Puga DO - 2022 7:56 AM EST Yes, I would like her to start on Remeron at bedtime. Stop the Isaac Puga DO The following approved medication requests [...] advise, Bhavna Arauz RN documented in this encounterKettering Health [facility]12-20-2022 History of Present illness Narrative* Michael Puga, DO - 04/21/2022 4:53 PM EST CC: [...] he was just recently moved into a nursing home. + fatigue, admits that she doesn't want [...] hydrochlorothiazide which dose was recently increased by Solar Sales Rep. Feels this doesn't make her feel well. Fatigue symptoms, feels she is more isolated for the last 2 years since covid 19 pandemic and limitations with getting out with friends. Also brother Serg is in nursing home/ECF now and she is home alone. Has [...] these. Atrial fibrillation, hx of CAD, seeing Solar Sales Rep regularly Insomnia, long standing, thinks this is [...] COMPARTMENTS 11/15/2009 Knee replacement, total -Left - [facility] ARTHRP KNE CONDYLE&PLATU MEDIAL&LAT COMPARTMENTS 12/30/2009 Right knee replaced COLONOSCOPY FLX DX W/COLLJ SPEC WHEN PFRMD 06/29/2017 Colonoscopy EGD 10/17/2020 EGD W/O [facility] SPEC VARICIES INJ 01/08/2022 ESOPHAGOGASTRODUODENOSCOPY [...] plan. See patient instructions. Michael Puga DO [address] [place] [address] [facility] History of Present illness Narrative* Michael Puga [...] he was just recently moved into a nursing home. + fatigue, admits that she doesn't want [...] hydrochlorothiazide which dose was recently increased by [employer]. Feels this doesn't make her feel well. Fatigue symptoms, feels she is more isolated for the last 2 years since covid 19 pandemic and limitations with getting out with friends. Also brother Serg is in nursing home/ECF now and she is home alone. Has [...] COMPARTMENTS 11/15/2009 Knee replacement, total -Left - [facility] ARTHRP KNE CONDYLE&PLATU MEDIAL&LAT COMPARTMENTS 12/30/2009 Right knee replaced COLONOSCOPY FLX DX W/COLLJ SPEC WHEN PFRMD 06/29/2017 Colonoscopy EGD 10/17/2020 EGD W/O [facility] SPEC VARICIES INJ 01/08/2022 ESOPHAGOGASTRODUODENOSCOPY [...] Return if no improvement. Follow up with Mihcael Puga DO. To ER if develops chest pain, shortness of breath Discussed risks, benefits, alternatives, and potential side effects of medications. Patient/Guardian expressed understanding and agreed with the plan. See patient instructions. Michael Puga DO [address] [place] [address] documented in this encounterK[facility] History of Present illness Narrative* Raymundo De [...] needed at this time. documented in this encounterK[facility]09-08-2022 History and physical note * Raymundo De León MD - 01/08/2022 2:15 PM EDT Images from the original note were not included. HISTORY AND PHYSICAL Michael Meier 1940 REFERRING PHYSICIAN: Michael Puga DO CHIEF [...] COMPARTMENTS 11/15/2009 Knee replacement, total -Left - [facility] ARTHRP KNE CONDYLE&PLATU MEDIAL&LAT COMPARTMENTS 12/30/2009 [...] entered by the nurse and reviewed by ks Nursing Notes: Portia Camarillo RN 12/18/2021 3:15 [...] 2022 TIME: 1:00 PM documented in this encounterK[facility]09-08-2022 Nurse Note* Nyla Fraga RN - 01/08/2022 2:05 PM EDT Patient arrived laying on left side. States that she is not having any pain at this time. Patient'sabdomen appears to be nondistended and soft at this time. documented in this encounterK[facility]08-31-2022 Miscellaneous Notes* Telephone Encounter - Joshua King - 12/31/2021 11:49 AM EDT Received last note and Pacer check from [facility]. Scanned into [employer] and given to [facility] nurses to review Joshua King documented in this encounterKet[facility] Troy08-18-2022 History of Present illness Narrative* Raymundo De León MD - 12/18/2021 3:18 PM EDT HISTORY AND PHYSICAL Michael Deras [place]o 1940 REFERRING PHYSICIAN: Michael Puga DO CHIEF [...] MEDIAL&LAT COMPARTMENTS 11/15/2009 Knee replacement, total -Left [facility] ARTHRP KNE CONDYLE&PLATU MEDIAL&LAT COMPARTMENTS 12/30/2009 Right [...] entered by the nurse and reviewed by ks Nursing Notes: Portia Camarillo RN 12/18/2021 3:15 [...] De León III, MD documented in this encounterK[facility] Troy08-18-2022 Nurse Note* Portia Camarillo RN - 12/18/2021 [...] 06/29/2017 Portia Camarillo RN documented in this encounterK[facility]06-20-2022 History of Present illness Narrative* Nunu Gonzalez [...] sooner. Nunu Gonzalez PA-C documented in this encounterKettering [facility] Troy02-18-2022 Miscellaneous Notes* Telephone Encounter - Jacque Dumont Ma - 06/20/2021 8:08 AM EST Pt notified and verbalized understanding Jacque Dumont Ma * Telephone Encounter - Asia Rosales APRN.CNP - 06/19/2021 5:43 PM EST Please let Michael know that her lab results look good, no concerns. Asia Rosales APRN.CNP documented in this encounterKet[facility] Troy02-07-2022 Evaluation note* Diagnosis Onset Date Resolution Status [...] Paroxysmal atrial fibrillation chronic Sick sinus syndrome [facility] Work Phone: [phone]) 566-332206-17-2021 History of Past illness Narrative* Problem Noted [...] 03/11/2015 Last Assessment & Plan: Dx. after K [facility] 2010 Actinic keratosis 01/20/2007 03/11/2015 Other chronic [...] of this encounter (statuses as of 09/02/2021) [facility] History of Past illness Narrative* Problem Noted [...] 03/11/2015 Last Assessment & Plan: Dx. after [facility] 2009 Actinic keratosis 01/20/2007 03/11/2015 Other chronic [...] of this encounter (statuses as of 09/03/2021) [facility] History of Past illness Narrative* Problem Noted [...] 03/11/2015 Last Assessment & Plan: Dx. after [facility] 2009 Actinic keratosis 01/20/2007 03/11/2015 Other chronic [...] of this encounter (statuses as of 10/20/2021) [facility] History of Past illness Narrative* Problem Noted [...] 03/11/2015 Last Assessment & Plan: Dx. after [facility] 2009 Actinic keratosis 01/20/2007 03/11/2015 Other chronic [...] of this encounter (statuses as of 12/21/2021) [facility] of Past illness Narrative* Problem Noted [...] 03/11/2015 Last Assessment & Plan: Dx. after [facility] 2009 Actinic keratosis 01/20/2007 03/11/2015 Other chronic [...] of this encounter (statuses as of 12/31/2021) [facility] of Past illness Narrative* Problem Noted [...] 03/11/2015 Last Assessment & Plan: Dx. after [facility] 2009 Actinic keratosis 01/20/2007 03/11/2015 Other chronic [...] of this encounter (statuses as of 01/09/2022) [facility] of Past illness Narrative* Problem Noted [...] 03/11/2015 Last Assessment & Plan: Dx. after [facility] 2009 Actinic keratosis 01/20/2007 03/11/2015 Other chronic [...] of this encounter (statuses as of 01/16/2022) [facility] of Past illness Narrative* Problem Noted [...] 03/11/2015 Last Assessment & Plan: Dx. after [facility] 2010 Actinic keratosis 01/20/2007 03/11/2015 Other [...] of this encounter (statuses as of 02/17/2022) [facility] of Past illness Narrative* Problem Noted [...] 03/11/2015 Last Assessment & Plan: Dx. after [facility] 2009 Actinic keratosis 01/20/2007 03/11/2015 Other chronic [...] of this encounter (statuses as of 04/21/2022) [facility] of Past illness Narrative* Problem Noted [...] 03/11/2015 Last Assessment & Plan: Dx. after [facility] 2009 Actinic keratosis 01/20/2007 03/11/2015 Other chronic [...] of this encounter (statuses as of 05/03/2022) [facility] of Past illness Narrative* Problem Noted [...] 03/11/2015 Last Assessment & Plan: Dx. after [facility] 2009 Actinic keratosis 01/20/2007 03/11/2015 Other chronic [...] of this encounter (statuses as of 06/02/2022) [facility] of Past illness Narrative* Problem Noted [...] 03/11/2015 Last Assessment & Plan: Dx. after [facility] 2010 Actinic keratosis 01/20/2007 03/11/2015 Other [...] of this encounter (statuses as of 06/04/2022) [facility] of Past illness Narrative* Problem Noted [...] 03/11/2015 Last Assessment & Plan: Dx. after [facility] 2009 Actinic keratosis 01/20/2007 03/11/2015 Other chronic [...] of this encounter (statuses as of 06/08/2022) [facility] of Past illness Narrative* Problem Noted [...] 03/11/2015 Last Assessment & Plan: Dx. after [facility] 2009 Actinic keratosis 01/20/2007 03/11/2015 Other chronic [...] of this encounter (statuses as of 06/10/2022) [facility] of [facility] illness Narrative* Problem Noted [...] 03/11/2015 Last Assessment & Plan: Dx. after [facility] 2009 Actinic keratosis 01/20/2007 03/11/2015 Other chronic [...] of this encounter (statuses as of 06/23/2022) [facility] of [facility] illness Narrative* Problem Noted [...] 03/11/2015 Last Assessment & Plan: Dx. after [facility] 2009 Actinic keratosis 01/20/2007 03/11/2015 Other chronic [...] of this encounter (statuses as of 06/30/2022) [facility] of [facility] illness Narrative* Problem Noted [...] 03/11/2015 Last Assessment & Plan: Dx. after [facility] 2009 Actinic keratosis 01/20/2007 03/11/2015 Other chronic [...] of this encounter (statuses as of 10/01/2022) [facility] of [facility] illness Narrative* Problem Noted [...] 03/11/2015 Last Assessment & Plan: Dx. after [facility] 2009 Actinic keratosis 01/20/2007 03/11/2015 Other chronic [...] of this encounter (statuses as of 12/23/2022) [facility] of [facility] illness Narrative* Problem Noted [...] 03/11/2015 Last Assessment & Plan: Dx. after [facility] 2010 Actinic keratosis 01/20/2007 03/11/2015 Other [...] of this encounter (statuses as of 12/29/2022) [facility] of [facility] Narrative* Problem Noted [...] 03/11/2015 Last Assessment & Plan: Dx. after [facility] 2009 Actinic keratosis 01/20/2007 03/11/2015 Other chronic [...] of this encounter (statuses as of 12/31/2022) [facility] of [facility] illness Narrative* Problem Noted [...] 03/11/2015 Last Assessment & Plan: Dx. after [facility] 2009 Actinic keratosis 01/20/2007 03/11/2015 Other chronic [...] of this encounter (statuses as of 01/11/2023) [facility] of [facility] illness Narrative* Problem Noted [...] 03/11/2015 Last Assessment & Plan: Dx. after [facility] 2009 Actinic keratosis 01/20/2007 03/11/2015 Other chronic [...] of this encounter (statuses as of 03/07/2023) [facility] of [facility] illness Narrative* Problem Noted [...] 03/11/2015 Last Assessment & Plan: Dx. after [facility] 2009 Actinic keratosis 01/20/2007 03/11/2015 Other chronic [...] of this encounter (statuses as of 04/02/2023) [facility] of Past illness Narrative* Problem Noted [...] 03/11/2015 Last Assessment & Plan: Dx. after [facility] 2009 Actinic keratosis 01/20/2007 03/11/2015 Other chronic [...] of this encounter (statuses as of 04/08/2023) [facility] Author Waleska Phillips [facility] Note Date/Time December 03, 2024 2:5 5pm [facility] Medical Records Department [address] [place] [address] Instructions for Home/Discharge Instructions 12/03/24 1438 MR#: [id number] Acct: [id number] Name: MICHAEL MEIER Rep #:[id number] 3 : 1940 84 From: Waleska Phillips MD PCP: Dr. Michael Puga, DO Status:AD M CORBY Discharge Instructions DC O2, CPAP, BIPAP needs Home O2 Discharge instructions: Yes Type of respiratory needs?: CPAP CPAP instructions: Pt wears cpap at home, has used 2L qhs here Follow Up Care Test Results: Test results from this visit will be discussed in further detail at your follow- up appointment, if applicable. Discharge Plan Admission Admit Date/Time: 11/29/24 21:39 Primary Reason for Your Visit: Leg tremors Attending Provider: Waleska Phillips Primary Care Provider: Michael Puga Consulting Providers: Tacho Davis; Jonny Vicente Instructions Patient Instructions: ED Fall Prevention Additional Instructions / Restrictions: DISCHARGE INSTRUCTIONS PLEASE READ *Please take this with you to your next doctors appointment* - You had a downtrend in sodium but indicated that you had decreased your water intake so you he would not have to ask her to go to the bathroom, suspect this in combination with your Lasix and spironolactone may have caused slight dehydration - Would recommend holding Lasix and spironolactone for 2 days and repeating BMP to assess sodium - If no improvement or any further downtrend could consider workup with urine studies and serum osmole's -Your hydralazine has been increased to 50mg three times daily -Please follow-up with neurology upon discharge, please call Dr. Kelsey's office upon discharge to schedule an appointment for your tremors (ph [phone]) -Please call your primary care provider's office upon discharge to schedule a hospital follow up within 1 week. -For any concerning signs or symptoms please call 911 or proceed to the nearest emergency department Discharge Orders/Prescriptions Prescriptions: New hydralazine 50 mg Tablet 50 mg PO TID Qty: 0 0RF Continued aspirin [Adult Low Dose Aspirin] 81 mg tablet,delayed release (DR/EC) 81 mg PO QDAY Qty: 90 3RF rosuvastatin 10 mg tablet 10 mg PO DAILY coenzyme Q10 [Co Q-10] 100 mg capsule 100 mg PO DAILY sucralfate 100 mg/mL suspension 10 ml PO TID PRN (Reason: digestion) Patient Comments: TAKE 10 ML BY MOUTH 4 TIMES DAILY levothyroxine 50 mcg capsule 50 mcg PO QDAY omeprazole 20 mg capsule,delayed release(DR/EC) 20 mg PO QDAY paroxetine HCl 40 mg tablet 40 mg PO QDAY cyclosporine [Restasis] 0.05 % dropperette 1 drp EACH EYE Q12H albuterol sulfate [ProAir HFA] 90 mcg/actuation HFA aerosol inhaler 2 puff inhalation Q6H PRN (Reason: shortness of breath or wheezing) Qty: 6.7 0RF lorazepam 0.5 MG tablet 0.5 mg PO BID PRN PRN (Reason: Anxiety) Qty: 6 0RF vitamin B complex [Balanced B-50] Tablet 1 tab PO DAILY fluticasone propionate 110 mcg/actuation HFA aerosol inhaler 1 inh inhalation Q12H meloxicam 15 mg tablet 15 mg PO DAILY azelastine 0.05 % drops 1 drp ophthalmic (eye) BID PRN prednisone 10 mg tablet 10 mg PO DAILY diltiazem HCl 240 mg capsule,extended release 24hr 240 mg PO QHS Qty: 90 3RF amiodarone 200 mg tablet 200 mg PO DAILY Qty: 90 3RF losartan 100 mg tablet 100 mg PO DAILY Qty: 90 3RF Changed gabapentin 100 mg capsule 300 mg PO QHS Qty: 12 0RF Patient Comments: per pt to start taking 300mg tonight per pcp instruction. Held spironolactone 25 mg tablet 25 mg PO DAILY Qty: 30 11RF Hold Instructions: Resume on 12/06/24. furosemide 20 mg tablet 20 mg PO QDAY Hold Instructions: Resume on 12/06/24. Discontinued hydralazine 50 mg tablet 50 mg PO BID Qty: 180 3RF Referrals / Follow Up: Michael Puga DO [Primary Care Provider] - Adama Kelsey MD [Non-Staff -Ordering Privileges] - Disposition Disposition (needs filled in before D/C Order can be placed): Inpatient Rehab Unit/Facility 12/03/24 6820<Electronically signed by Waleska Phillips MD>Waleska Phillips MD CC: Dr. Tacho Davis DO; Dr. Michael Puga DO; Dr. Jonny Vicente MD ~ Signed [facility] Work Phone: Evaluation note* Diagnosis Urinary frequency- Primary Glucosuria Glycosuria [facility] [place] [facility] Diagnosis Gastroesophageal reflux disease with esophagitis without hemorrhage- Primary [facility] [place] [facility]* Diagnosis Gastroesophageal reflux disease, unspecified whether esophagitis present- Primary Gastroesophageal reflux disease with esophagitis without hemorrhage [facility] [place] [facility]* Diagnosis Gastroesophageal reflux disease with esophagitis without hemorrhage- Primary [facility] [place] [facility]* Diagnosis Dysthymia- Primary Dysthymic disorder Need for influenza vaccination Need for prophylactic vaccination and inoculation against influenza Arthritis, multiple joint involvement Unspecified arthropathy, multiple sites IFG (impaired fasting glucose) Impaired fasting glucose Obesity, Class II, BMI 35-39.9 Obesity, unspecified Fatigue, unspecified type Iron deficiency Iron deficiency anemia, unspecified [facility] this [facility] [place] [facility]* Diagnosis Dysthymia- Primary Dysthymic disorder Situational insomnia Transient disorder of initiating or maintaining sleep Arthritis, multiple joint involvement Unspecified arthropathy, multiple sites IFG (impaired fasting glucose) Impaired fasting glucose Obesity, Class II, BMI 35-39.9 Obesity, unspecified Fatigue, unspecified type Iron deficiency Iron deficiency anemia, unspecified [facility] this [facility] [place] [facility]* Diagnosis Fatigue, unspecified type- Primary SOB (shortness of breath) on exertion Shortness of breath Hyperlipidemia, unspecified hyperlipidemia type Obesity, Class II, BMI 35-39.9 Obesity, unspecified IFG (impaired fasting glucose) Impaired fasting glucose Iron deficiency anemia, unspecified iron deficiency anemia type Vitamin D deficiency Unspecified vitamin D deficiency Bilateral leg edema Edema Primary hypertension Unspecified essential hypertension [facility] this [facility] [place] [facility]* Diagnosis Iron deficiency- Primary Iron deficiency [...] arthropathy, multiple sites [facility] [place] [facility]* Diagnosis Situational insomnia Transient disorder of initiating or maintaining sleep Situational mixed anxiety and depressive disorder Adjustment disorder with mixed anxiety and depressed mood [facility] this [facility] [place] [facility]* Diagnosis TIA (transient ischemic attack) Unspecified transient cerebral ischemia Hyperlipidemia, unspecified hyperlipidemia type Anxiety Anxiety state, unspecified documented in this encounter [facility] note* Diagnosis WELCH (dyspnea on exertion)- Primary Other dyspnea and respiratory abnormality Fatigue, unspecified type Obesity, Class II, BMI 35-39.9 Obesity, unspecified IFG (impaired fasting glucose) Impaired fasting glucose Vitamin B12 deficiency Other B-complex deficiencies Primary hypertension Unspecified essential hypertension Disorder of carotid artery (HCC) Unspecified disorders of arteries and arterioles [facility] [place] [facility]* Diagnosis WELCH (dyspnea on exertion) Other dyspnea and respiratory abnormality [facility] this [facility] [place] [facility]* Diagnosis Obstructive lung disease (HCC)- Primary Chronic airway obstruction, not elsewhere classified WELCH (dyspnea on exertion) Other dyspnea and respiratory abnormality documented [facility] this [facility] [place] [facility]* Diagnosis Fatigue, unspecified type- Primary [facility] [place] [facility]* Diagnosis WELCH (dyspnea on exertion) Other dyspnea and respiratory abnormality [facility] this [facility] [place] [facility]* Diagnosis Subclinical hypothyroidism- Primary Other specified [...] trunk, except scrotum [facility] [place] [facility]* Diagnosis Diarrhea, unspecified type- Primary [facility] this [facility] [place] [facility]* Diagnosis Hospital discharge follow-up- Primary Other [...] Unspecified essential hypertension [facility]* Diagnosis Situational insomnia Transient disorder of initiating or maintaining sleep Situational mixed anxiety and depressive disorder Adjustment disorder with mixed anxiety and depressed mood [facility] [place] [facility]* Diagnosis Chronic respiratory failure with hypoxia (HCC)- Primary Chronic respiratory failure Sleep disturbances Sleep disturbance, unspecified [facility] [place] [facility]* Diagnosis Weakness- Primary Other malaise and fatigue Difficulty walking Difficulty in walking Imbalance Abnormality of gait [facility] [place] [facility]* Diagnosis Weakness- Primary Other malaise and fatigue Difficulty walking Difficulty in walking Imbalance Abnormality of gait [facility] [place] [facility]* Diagnosis Weakness- Primary Other malaise and fatigue Difficulty walking Difficulty in walking Imbalance Abnormality of gait [facility] [place] [facility]* Diagnosis Acute bronchitis, unspecified organism- Primary [...] trunk, except scrotum [facility] Weakness- Primary Other malaise and fatigue [facility] [place] [facility]* Diagnosis Weakness- Primary Other malaise and fatigue Difficulty walking Difficulty in walking Imbalance Abnormality of gait [facility]* Diagnosis Arthritis, multiple joint involvement- Primary Unspecified arthropathy, multiple sites Spinal stenosis of lumbar region without neurogenic claudication Spinal stenosis, lumbar region, without neurogenic claudication [facility]* Diagnosis Weakness- Primary Other malaise and fatigue Imbalance Abnormality of gait Difficulty walking Difficulty in walking [facility]* Diagnosis Weakness- Primary Other malaise and fatigue Imbalance Abnormality of gait [facility] [place] [facility]* Diagnosis Weakness- Primary Other malaise and fatigue Imbalance Abnormality of gait Difficulty walking Difficulty in walking [facility]* Diagnosis Weakness- Primary Other malaise and fatigue Imbalance Abnormality of gait Difficulty walking Difficulty in walking [facility]* Diagnosis Weakness- Primary Other malaise and fatigue Imbalance Abnormality of gait [facility]* Diagnosis Difficulty walking- Primary Difficulty in walking Imbalance Abnormality of gait Weakness Other malaise and fatigue [facility] [place] [facility]* Diagnosis Arthritis, multiple joint involvement- Primary Unspecified arthropathy, multiple sites Anxiety Anxiety state, unspecified Need for influenza vaccination Need for prophylactic vaccination and inoculation against influenza Epigastric abdominal pain Abdominal pain, epigastric Obstructive lung disease (HCC) Chronic airway obstruction, not elsewhere classified Gait abnormality Abnormality of gait Imbalance Abnormality of gait [facility] [place] [facility]* Diagnosis Difficulty walking- Primary Difficulty in walking Imbalance Abnormality of gait Weakness Other malaise and fatigue [facility] [place] [facility]* Diagnosis Epigastric abdominal pain- Primary Abdominal pain, epigastric Pulmonary hypertension (HCC) Other chronic pulmonary heart diseases [facility] [place] [facility]* Diagnosis Difficulty walking- Primary Difficulty in walking Imbalance Abnormality of gait Weakness Other malaise and fatigue [facility] [place] [facility]* Diagnosis Difficulty walking- Primary Difficulty in walking Imbalance Abnormality of gait Weakness Other malaise and fatigue [facility] Diagnosis Difficulty walking- Primary Difficulty in walking Imbalance Abnormality of gait Weakness Other malaise and fatigue [facility] [place] [facility] Diagnosis Pre-operative examination- Primary Preoperative examination, unspecified JOSE on CPAP Obstructive sleep apnea (adult) (pediatric) Obstructive lung disease (HCC) Chronic airway obstruction, not elsewhere classified Primary hypertension Unspecified essential hypertension Hyperlipidemia, unspecified hyperlipidemia type Cardiac resynchronization therapy pacemaker (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-P) in place Paroxysmal atrial fibrillation (HCC) Atrial [...] Assessment & Plan Note - Mary Foster APRN.CARMELINA - 03/31/2024 6:41 AM EST Associated Problem(s): [...] Assessment & Plan Note - Mary Foster APRN.CARMELINA - 03/31/2024 6:39 AM EST Associated Problem(s): [...] EST Associated Problem(s): Cardiac resynchronization therapy pacemaker (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-P) in place Assessment: s/p 10/2021 ICD placement, [...] Assessment: c/w CPAP [facility] Diagnosis Pre-operative examination- Primary Preoperative examination, unspecified JOSE on CPAP Obstructive sleep apnea (adult) (pediatric) Obstructive lung disease (HCC) Chronic airway obstruction, not elsewhere classified Primary hypertension Unspecified essential hypertension Hyperlipidemia, unspecified hyperlipidemia type Cardiac resynchronization therapy pacemaker (CAS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-P) in place Paroxysmal atrial fibrillation (HCC) Atrial [...] pulmonary heart diseases [facility] [place] [facility]* Diagnosis Pre-operative examination- Primary Preoperative examination, unspecified JOSE on CPAP Obstructive sleep apnea (adult) (pediatric) Obstructive lung disease (HCC) Chronic airway obstruction, not elsewhere classified Primary hypertension Unspecified essential hypertension Hyperlipidemia, unspecified hyperlipidemia type Cardiac resynchronization therapy pacemaker (CAS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-P) in place Paroxysmal atrial fibrillation (HCC) Atrial [...] without bleeding- Primary [facility] [place] [facility]* Diagnosis Pre-operative examination- Primary Preoperative examination, unspecified JOSE on CPAP Obstructive sleep apnea (adult) (pediatric) Obstructive lung disease (HCC) Chronic airway obstruction, not elsewhere classified Primary hypertension Unspecified essential hypertension Hyperlipidemia, unspecified hyperlipidemia type Cardiac resynchronization therapy pacemaker (CAS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-P) in place Paroxysmal atrial fibrillation (HCC) Atrial [...] malaise and fatigue [facility] [place] [facility] Diagnosis Pre-operative examination- Primary Preoperative examination, unspecified JOSE on CPAP Obstructive sleep apnea (adult) (pediatric) Obstructive lung disease (HCC) Chronic airway obstruction, not elsewhere classified Primary hypertension Unspecified essential hypertension Hyperlipidemia, unspecified hyperlipidemia type Cardiac resynchronization therapy pacemaker (CAS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-P) in place Paroxysmal atrial fibrillation (HCC) Atrial [...] Abnormality of gait documented in this encounter [facility] note* Diagnosis Pre-operative examination- Primary Preoperative examination, unspecified JOSE on CPAP Obstructive sleep apnea (adult) (pediatric) Obstructive lung disease (HCC) Chronic airway obstruction, not elsewhere classified Primary hypertension Unspecified essential hypertension Hyperlipidemia, unspecified hyperlipidemia type Cardiac resynchronization therapy pacemaker (CAS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-P) in place Paroxysmal atrial fibrillation (HCC) Atrial [...] and depressed mood documented in this encounter [facility] note* Diagnosis Pre-operative examination- Primary Preoperative examination, unspecified JOSE on CPAP Obstructive sleep apnea (adult) (pediatric) Obstructive lung disease (HCC) Chronic airway obstruction, not elsewhere classified Primary hypertension Unspecified essential hypertension Hyperlipidemia, unspecified hyperlipidemia type Cardiac resynchronization therapy pacemaker (CAS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-P) in place Paroxysmal atrial fibrillation (HCC) Atrial [...] legs syndrome (RLS) documented in this encounter [facility] note* Diagnosis Pre-operative examination- Primary Preoperative examination, unspecified JOSE on CPAP Obstructive sleep apnea (adult) (pediatric) Obstructive lung disease (HCC) Chronic airway obstruction, not elsewhere classified Primary hypertension Unspecified essential hypertension Hyperlipidemia, unspecified hyperlipidemia type Cardiac resynchronization therapy pacemaker (CAS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-P) in place Paroxysmal atrial fibrillation (HCC) Atrial [...] Anxiety state, unspecified documented in this encounter [facility] note* Diagnosis Pre-operative examination- Primary Preoperative examination, unspecified JOSE on CPAP Obstructive sleep apnea (adult) (pediatric) Obstructive lung disease (HCC) Chronic airway obstruction, not elsewhere classified Primary hypertension Unspecified essential hypertension Hyperlipidemia, unspecified hyperlipidemia type Cardiac resynchronization therapy pacemaker (CAS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-P) in place Paroxysmal atrial fibrillation (HCC) Atrial [...] failure type (HCC) documented in this encounter [facility] note* Diagnosis Pre-operative examination- Primary Preoperative examination, unspecified JOSE on CPAP Obstructive sleep apnea (adult) (pediatric) Obstructive lung disease (HCC) Chronic airway obstruction, not elsewhere classified Primary hypertension Unspecified essential hypertension Hyperlipidemia, unspecified hyperlipidemia type Cardiac resynchronization therapy pacemaker (CAS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-P) in place Paroxysmal atrial fibrillation (HCC) Atrial [...] failure type (HCC) [facility] [place] [facility]* Diagnosis Pre-operative examination- Primary Preoperative examination, unspecified JOSE on CPAP Obstructive sleep apnea (adult) (pediatric) Obstructive lung disease (HCC) Chronic airway obstruction, not elsewhere classified Primary hypertension Unspecified essential hypertension Hyperlipidemia, unspecified hyperlipidemia type Cardiac resynchronization therapy pacemaker (CAS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-P) in place Paroxysmal atrial fibrillation (HCC) Atrial [...] arthropathy, multiple sites [facility] [place] [facility]* Diagnosis Pre-operative examination- Primary Preoperative examination, unspecified JOSE on CPAP Obstructive sleep apnea (adult) (pediatric) Obstructive lung disease (HCC) Chronic airway obstruction, not elsewhere classified Primary hypertension Unspecified essential hypertension Hyperlipidemia, unspecified hyperlipidemia type Cardiac resynchronization therapy pacemaker (CAS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-P) in place Paroxysmal atrial fibrillation (HCC) Atrial [...] pulmonary heart diseases documented in this encounter [facility] note* Diagnosis Pre-operative examination- Primary Preoperative examination, unspecified JOSE on CPAP Obstructive sleep apnea (adult) (pediatric) Obstructive lung disease (HCC) Chronic airway obstruction, not elsewhere classified Primary hypertension Unspecified essential hypertension Hyperlipidemia, unspecified hyperlipidemia type Cardiac resynchronization therapy pacemaker (CAS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-P) in place Paroxysmal atrial fibrillation (HCC) Atrial [...] Chronic respiratory failure documented in this encounter [facility] note* Diagnosis Pre-operative examination- Primary Preoperative examination, unspecified JOSE on CPAP Obstructive sleep apnea (adult) (pediatric) Obstructive lung disease (HCC) Chronic airway obstruction, not elsewhere classified Primary hypertension Unspecified essential hypertension Hyperlipidemia, unspecified hyperlipidemia type Cardiac resynchronization therapy pacemaker (CAS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-P) in place Paroxysmal atrial fibrillation (HCC) Atrial [...] Chronic respiratory failure [facility] [place] [facility]* Diagnosis Pre-operative examination- Primary Preoperative examination, unspecified JOSE on CPAP Obstructive sleep apnea (adult) (pediatric) Obstructive lung disease (HCC) Chronic airway obstruction, not elsewhere classified Primary hypertension Unspecified essential hypertension Hyperlipidemia, unspecified hyperlipidemia type Cardiac resynchronization therapy pacemaker (CAS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-P) in place Paroxysmal atrial fibrillation (HCC) Atrial [...] arthropathy, multiple sites documented in this encounter [facility] note* Diagnosis Pre-operative examination- Primary Preoperative examination, unspecified JOSE on CPAP Obstructive sleep apnea (adult) (pediatric) Obstructive lung disease (HCC) Chronic airway obstruction, not elsewhere classified Primary hypertension Unspecified essential hypertension Hyperlipidemia, unspecified hyperlipidemia type Cardiac resynchronization therapy pacemaker (CAS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-P) in place Paroxysmal atrial fibrillation (HCC) Atrial [...] Abnormality of gait [facility] [place] [facility]* Diagnosis Pre-operative examination- Primary Preoperative examination, unspecified JOSE on CPAP Obstructive sleep apnea (adult) (pediatric) Obstructive lung disease (HCC) Chronic airway obstruction, not elsewhere classified Primary hypertension Unspecified essential hypertension Hyperlipidemia, unspecified hyperlipidemia type Cardiac resynchronization therapy pacemaker (CAS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-P) in place Paroxysmal atrial fibrillation (HCC) Atrial [...] Abnormality of gait [facility] [place] [facility]* Diagnosis Pre-operative examination- Primary Preoperative examination, unspecified JOSE on CPAP Obstructive sleep apnea (adult) (pediatric) Obstructive lung disease (HCC) Chronic airway obstruction, not elsewhere classified Primary hypertension Unspecified essential hypertension Hyperlipidemia, unspecified hyperlipidemia type Cardiac resynchronization therapy pacemaker (CAS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-P) in place Paroxysmal atrial fibrillation (HCC) Atrial [...] Abnormality of gait documented in this encounter [facility] note* Diagnosis Pre-operative examination- Primary Preoperative examination, unspecified JOSE on CPAP Obstructive sleep apnea (adult) (pediatric) Obstructive lung disease (HCC) Chronic airway obstruction, not elsewhere classified Primary hypertension Unspecified essential hypertension Hyperlipidemia, unspecified hyperlipidemia type Cardiac resynchronization therapy pacemaker (CAS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-P) in place Paroxysmal atrial fibrillation (HCC) Atrial [...] Abnormality of gait documented in this encounter [facility] noteNo assessment information availableBlMountain Community Medical Services Work Phone: Evaluation note* Diagnosis Onset Date Resolution Status Admit Date WELCH (dyspnea on exertion) acute November 02, 2024 9:16am 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 acute November 02, 2024 9:16am Pulmonary hypertension acute Ju 2024 9:16am Right carotid bruit acute November 02, 2024 9:16am Essential (primary) hypertension chronic November 02, 2024 9:16am History of permanent cardiac pacemaker placement June 09, 2021 chronic J silvia 2024 9:16am Paroxysmal atrial fibrillation chronic November 02, 2024 9:16am [facility] Work Phone: Evaluation note* Diagnosis Pre-operative examination- Primary Preoperative examination, unspecified JOSE on CPAP Obstructive sleep apnea (adult) (pediatric) Obstructive lung disease (HCC) Chronic airway obstruction, not elsewhere classified Primary hypertension Unspecified essential hypertension Hyperlipidemia, unspecified hyperlipidemia type Cardiac resynchronization therapy pacemaker (CAS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-P) in place Paroxysmal atrial fibrillation (HCC) Atrial [...] Anxiety state, unspecified documented in this encounter [facility] note* Diagnosis Pre-operative examination- Primary Preoperative examination, unspecified JOSE on CPAP Obstructive sleep apnea (adult) (pediatric) Obstructive lung disease (HCC) Chronic airway obstruction, not elsewhere classified Primary hypertension Unspecified essential hypertension Hyperlipidemia, unspecified hyperlipidemia type Cardiac resynchronization therapy pacemaker (CAS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-P) in place Paroxysmal atrial fibrillation (HCC) Atrial [...] unspecified hyperlipidemia type [facility] instructions[facility] Instructions DISCHARGE INSTRUCTIONS PLEASE READ *Please take this with you to your next doctors appointment* - You had a downtrend in sodium but indicated that you had decreased your water intake so you he would not have to ask her to go to the bathroom, suspect this in combination with your Lasix and spironolactone may have caused slight dehydration - Would recommend holding Lasix and spironolactone for 2 days and repeating BMP to assess sodium - If no improvement or any further downtrend could consider workup with urine studies and serum osmole's -Your hydralazine has been increased to 50mg three times daily -Please follow-up with neurology upon discharge, please call Dr. Kelsey's office upon discharge to schedule an appointment for your tremors ( [phone]) -Please call your primary care provider's office upon discharge to schedule a hospital follow up within 1 week. -For any concerning signs or symptoms please call 911 or proceed to the [facility] Work Phone: Reason for referral (narrative)* Outpatient Procedure (Routine) - Authorized Specialty Diagnoses / Procedures Referred By Colton bond Referred To Contact [facility] [place] Diagnoses Gastroesophageal reflux disease with esophagitis without hemorrhage Procedures EGD DIAGNOSTIC ESOPHAGOGASTRODUODENOSC OPY TRANSORAL DIAGNOSTIC Raymundo De León MD [address] [place] [address] [facility] [address] [place] [address] Referral ID Status Reason Start Date Expiration Date Visits Requested Visits Authorized [id number] Authorized Auto-Generat ed Referral 12/18/2021 12/18/2022 1 1 [facility] for referral (narrative)* Outpatient Procedure (Routine) - Closed Specialty Diagnoses / Procedures Referred By Colton bond Referred To Contact [facility] Diagnoses Gastroesophageal reflux disease with esophagitis without hemorrhage Procedures EGD DIAGNOSTIC ESOPHAGOGASTRODUODENOSC OPY TRANSORAL DIAGNOSTIC Raymundo De León MD [address] [place] [address] [facility] [address] [place] [address] Referral ID Status Reason Start Date Expiration Date V isits Requested Visits Authorized [id number] Closed Auto-Generate d Referral 12/18/2021 12/18/2022 1 1 [facility] for referral (narrative)* Outpatient Procedure (Routine) - Authorized Specialty Diagnoses / Procedures Referred By Contac t Referred To Contact [facility] [place] Diagnoses SOB (shortness of breath) on exertion Procedures ECHO ECHO TTHRC R-T 2D W/WOM-MODE COMPL SPEC&COLR D Key Portillo APRN.STEREOPTIC PROJECTION TOPOGRAPHER [address] [place] [address] [address] Referral ID Status Reason Start Date Expiration Date Visits Requested Visits Authorized [id number] Authorized Auto-Generat ed Referral 06/04/2022 06/04/2023 1 1 * Outpatient Procedure (Routine) - Closed Specialty Diagnoses / Procedures Referred By Contac t Referred To Contact [facility] [place] Diagnoses SOB (shortness of breath) on exertion Procedures ECG COMPLETE ECG ROUTINE ECG W/LEAST 12 LDS W/I&R Key Portillo APRN.STEREOPTIC PROJECTION TOPOGRAPHER [address] [place] [address] [place] [id number] Referral ID Status Reason Start Date Expiration Date V isits Requested Visits Authorized [id number] Closed Auto-Generate d Referral 06/04/2022 06/04/2023 1 1 [facility] for referral (narrative)* Outpatient Procedure (Routine) - Authorized Specialty Diagnoses / Procedures Referred By Contac t Referred To Contact [facility] Diagnoses WELCH (dyspnea on exertion) Procedures SPIROMETRY - BASELINE AND POST DILATOR BRNCDILAT RSPSE SPMTRY PRE&POST-BRNCDILAT ADMMichael Morrison, DO [address] [place] [address] [facility] [address] [place] [id number] Referral ID Status Reason Start Date Expiration Date Visits Requested Visits Authorized [id number] Authorized Auto-Generat ed Referral 12/22/2022 01/21/2024 1 1 [facility] for referral (narrative)* Outpatient Procedure (Routine) - Authorized Specialty Diagnoses / Procedures Referred By Contac t Referred To Contact [facility] [place] Diagnoses Epigastric abdominal pain Pulmonary hypertension (HCC) Procedures EGD DIAGNOSTIC ESOPHAGOGASTRODUODENOSCO PY TRANSORAL DIAGNOSTIC Sharno Jarrett APRN.STEREOPTIC PROJECTION TOPOGRAPHER [address] [place] [address] [facility] [address] [place] [address] Referral ID Status Reason Start Date Expiration Date Visits Requested Visits Authorized [id number] Authorized Auto-Generat ed Referral 03/13/2025 1 1 [facility] [place] for [facility] (narrative)* Outpatient Procedure (Routine) - Closed Specialty Diagnoses / Procedures Referred By Contac t Referred To Contact [facility] [place] Diagnoses Epigastric abdominal pain Pulmonary hypertension (HCC) Procedures EGD DIAGNOSTIC ESOPHAGOGASTRODUODENOSCO PY TRANSORAL DIAGNOSTIC Sharon Jarrett APRN.STEREOPTIC PROJECTION TOPOGRAPHER [address] [place] [address] [facility] [address] [address] Referral ID Status Reason Start Date Expiration Date V isits Requested Visits Authorized [id number] Closed Auto-Generate d Referral 03/13/2024 03/13/2025 1 1 [facility] [place] for referral (narrative)No reason for referral information availableWTrinity Health System Work Phone: Reason for visit Narrative* Outpatient Procedure (Routine) - Closed Specialty Diagnoses / Procedures Referred By Contac t Referred To Contact [facility] [place] Diagnoses Gastroesophageal reflux disease with esophagitis without hemorrhage Procedures EGD DIAGNOSTIC ESOPHAGOGASTRODUODENOSC OPY TRANSORAL DIAGNOSTIC Raymundo De León MD [address] [place] [address] [place] [phone] Referral ID Status Reason Start Date Expiration Date V isits Requested Visits Authorized [id number] Closed Auto-Generate d Referral 12/18/2021 12/18/2022 1 1 [facility] N[facility] Outpatient Procedure (Routine) - Closed Specialty Diagnoses / Procedures Referred By Colton bond Referred To Contact [facility] [place] Diagnoses Epigastric abdominal pain Pulmonary hypertension (HCC) Procedures EGD DIAGNOSTIC ESOPHAGOGASTRODUODENOSCO PY TRANSORAL DIAGNOSTIC Sharon Jarrett APRN.CNP [address] [facility] [place] [address] [address] Referral ID Status Reason Start Date Expiration Date V isits Requested Visits Authorized [id number] Closed Auto-Generate d Referral 03/13/2024 03/13/2025 1 1 [facility] Summary Purpose Family History Relationship Condition Age at Onset Recorded Date/T burt grandfather Myocardial infarction Unknown Sudden cardiac Unknown father Myocardial infarction Unknown Coronary artery disease Unknown Congestive heart failure Unknown mother Myocardial infarction Unknown Atrial fibrillation Unknown brother Atrial fibrillation Unknown brother Malignant neoplasm Unknown son Diabetes mellitus Unknown son Hypertension Unknown Advance Directives Documents on File Type Date Recorded Patient Pedigree Researcher Expl anation Advance Directive(s) 10/17/2020 9:40 AM Advance Directive(s) 06/29/2017 10:43 AM Advance Directive(s) 06/29/2017 6:40 AM Advance Directive Response Recorded Date/ Time Advance Directives Yes June 09, 2021 11:35am Living Will Yes June 09 11:35am Power of Insight Director Yes June 09, 2021 11:35am Documents on File Type Date Recorded Patient Pedigree Researcher Expl anation Advance Directive(s) 06/29/2017 6:40 AM Documents on File Type Date Recorded Patient Pedigree Researcher Expl anation Advance Directive(s) 06/29/2017 6:40 AM Advance Directive Response Recorded Date/ Time Living Will Yes September 28, 2023 1 2:26am Power of Insight Director Yes September 28, 2023 12:26am Living Will Yes April 30, 024 11:40am Power of Insight Director Yes April 30, 2024 11:40am Name of Medical Power of Insight Director Yumiko Elena, daughter April 30, 2024 11:40am Advance Directives Yes June 09, 2021 11:35am Advance Directive Response Recorded Date/ Time Living Will Yes September 28, 2023 1 2:26am Do you have a Healthcare Pow er of Insight Director? Yes September 28, 2023 12:26am Living Will Yes April 30 11:40am Do you have a Healthcare Pow er of Insight Director? Yes April 30, 2024 11:40am Name of Medical Power of Insight Director Yumiko Elena, daughter April 30, 2024 11:40am Advance Directives Yes June 09, 2021 11:35am Advance Directive Response Recorded Date/ Time Advance Directives Yes June 09, 2021 11:35am Advance Directive Response Recorded Date/ Time Do you have a Healthcare Power of Insight Director? Yes November 29, 2024 4:45pm Advance Directives Yes June 09, 2021 11:35am Advance Directive Response Recorded Date/ Time Do you have a Healthcare Power of Insight Director? 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 Dewayne bhagat 2024 [...] (dyspnea on exertion) November 02, 2024 9:16am [facility] current use of amiodarone November 02, 2024 9:16am Pulmonary hypertension November 02, 2024 9: 16am Right carotid bruit November 02, 2024 9:16a m Essential (primary) hypertension October 9:16am History of permanent cardiac pacemaker p lacement November 02, 2024 9:16am Paroxysmal atrial fibrillation November 02, 2024 9:16am Reason for Visit Admit Date WELCH (dyspnea on exertion) November 02, 2024 9:16am [facility] current use of amiodarone November 02, 2024 [...] moved u p November 02, 2024 9:16am Chief Complaint Admit Date Pacer Check Remote October 16, 2024 2:00 am Pacer Check Remote October 23, 2024 2:00 am Pacer Check Remote October 27, 2024 2:22 am See clinical notes re: SOB, appt moved u p November 02, 2024 9:16am HYPERTENSIVE EMERGENCY AND RUE WITH RLE TREMORS. 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 November 02, 2024 9:16am Pulmonary hypertension November 02, 2024 9: 16am Essential (primary) hypertension October 9:16am History of permanent cardiac pacemaker p lacement November 02, 2024 9:16am Paroxysmal atrial fibrillation November 02, 2024 9:16am Hypertensive emergency without congestiv e heart failure November 29, 2024 9:39pm Morbid obesity with BMI of 40.0-44.9, ad ult November 29, 2024 9:39pm Tremor November 29, 2024 9:39 pm Paroxysmal atrial fibrillation October 9:39pm TIA (transient ischemic attack) October 9:39pm Chief Complaint Admit Date Pacer Check Remote October 16, 2024 2:00 am Pacer Check Remote October 23, 2024 2:00 am Pacer Check Remote October 27, 2024 2:22 am See clinical notes re: SOB, appt moved u p November 02, 2024 9:16am HYPERTENSIVE EMERGENCY AND RUE WITH RLE TREMORS. November 29, 2024 9:39pm HYPERTENSIVE EMERGENCY AND RUE WITH RLE TREMORS. November 30, 2024 4:26pm HYPERTENSIVE EMERGENCY AND RUE WITH RLE TREMORS. December 01, 2024 2:51pm HYPERTENSIVE EMERGENCY AND RUE WITH RLE TREMORS. December 02, 2024 4:14pm Reason for Visit Admit Date WELCH (dyspnea on exertion) November 02, 2024 9:16am [facility] current use of amiodarone November 02, 2024 9:16am Pulmonary hypertension November 02, 2024 9: 16am Essential (primary) hypertension October 9:16am History of permanent cardiac pacemaker p lacement November 02, 2024 9:16am Paroxysmal atrial fibrillation November 02, 2024 9:16am Hypertensive emergency without congestiv e heart failure November 29, 2024 9:39pm Hypertensive urgency November 29, 2024 9:3 9pm Morbid obesity with BMI of 40.0-44.9, ad ult November 29, 2024 9:39pm Tremor November 29, 2024 9:39 pm Paroxysmal atrial fibrillation October 9:39pm TIA (transient ischemic attack) October 9:39pm Medications Administered Section Inactive Administered Medications - up to 3 most recent administrations Medication Order MAR Action Action Date Dose Rate Site benzocaine 20% 1 [place] (TOPEX) 1 [place], TOPICAL, DIRECTED, Starting on Kaye 01/08/22 at [...] Referral Specialty Diagnoses / Procedures Referred By Colton bond Referred To Contact General Surgery Diagnoses Epigastric abdominal pain Procedures CONSULT TO GENERAL SURGERY OFFICE/OUTPATIENT [facility] 60 MINUTES Michael Puga L, DO [address] [place] [address] Referral ID Status Reason Start Date Expiration Date Visits Requested Visits Authorized [id number] Authorized PCP Requested Referral 4 03/01/2025 1 [...] section and content) DATE CREATED AUTHOR 12/28/2020 [facility] DATE CREATED AUTHOR AUTHOR'S ORGANIZ ATION 04/06/2024 [facility] DATE CREATED AUTHOR AUTHOR'S ORGANIZ ATION 10/28/2024 [facility] DATE CREATED AUTHOR AUTHOR'S ORGANIZ ATION 11/16/2024 [facility] DATE CREATED AUTHOR AUTHOR'S ORGANIZ ATION 12/01/2024 [facility] Source Comments (unrecognize d section and content) In the event this informatio n is protected by the Federal Confidentiality of Alcohol and Drug Abuse Patient Records regulations: The Federal rules restrict any use of the information to criminally investigate or prosecute any alcohol or drug abuse patient.[facility]In the event this information is protected by the Federal Confidentiality of Alcohol and Drug Abuse Patient Records regulations: The Federal rules restrict any use of the information to criminally investigate or prosecute any alcohol or drug abuse patient.[facility] TroyIn the event this information is protected by the Federal Confidentiality of Alcohol and Drug Abuse Patient Records regulations: The Federal rules restrict any use of the information to criminally investigate or prosecute any alcohol or drug abuse patient.[facility] TroyIn the event this information is protected by the Federal Confidentiality of Alcohol and Drug Abuse Patient Records regulations: The Federal rules restrict any use of the information to criminally investigate or prosecute any alcohol or drug abuse patient.[facility] TroyIn the event this information is protected by the Federal Confidentiality of Alcohol and Drug Abuse Patient Records regulations: The Federal rules restrict any use of the information to criminally investigate or prosecute any alcohol or drug abuse patient.[facility] TroyIn the event this information is protected by the Federal Confidentiality of Alcohol and Drug Abuse Patient Records regulations: The Federal rules restrict any use of the information to criminally investigate or prosecute any alcohol or drug abuse patient.[facility] TroyIn the event this information is protected by the Federal Confidentiality of Alcohol and Drug Abuse Patient Records regulations: The Federal rules restrict any use of the information to criminally investigate or prosecute any alcohol or drug abuse patient.[facility] TroyIn the event this information is protected by the Federal Confidentiality of Alcohol and Drug Abuse Patient Records regulations: The Federal rules restrict any use of the information to criminally investigate or prosecute any alcohol or drug abuse patient.[facility] TroyIn the event this information is protected by the Federal Confidentiality of Alcohol and Drug Abuse Patient Records regulations: The Federal rules restrict any use of the information to criminally investigate or prosecute any alcohol or drug abuse patient.[facility] TroyIn the event this information is protected by the Federal Confidentiality of Alcohol and Drug Abuse Patient Records regulations: The Federal rules restrict any use of the information to criminally investigate or prosecute any alcohol or drug abuse patient.[facility] TroyIn the event this information is protected by the Federal Confidentiality of Alcohol and Drug Abuse Patient Records regulations: The Federal rules restrict any use of the information to criminally investigate or prosecute any alcohol or drug abuse patient.[facility] TroyIn the event this information is protected by the Federal Confidentiality of Alcohol and Drug Abuse Patient Records regulations: The Federal rules restrict any use of the information to criminally investigate or prosecute any alcohol or drug abuse patient.[facility] TroyIn the event this information is protected by the Federal Confidentiality of Alcohol and Drug Abuse Patient Records regulations: The Federal rules restrict any use of the information to criminally investigate or prosecute any alcohol or drug abuse patient.[facility] TroyIn the event this information is protected by the Federal Confidentiality of Alcohol and Drug Abuse Patient Records regulations: The Federal rules restrict any use of the information to criminally investigate or prosecute any alcohol or drug abuse patient.[facility] TroyIn the event this information is protected by the Federal Confidentiality of Alcohol and Drug Abuse Patient Records regulations: The Federal rules restrict any use of the information to criminally investigate or prosecute any alcohol or drug abuse patient.[facility] TroyIn the event this information is protected by the Federal Confidentiality of Alcohol and Drug Abuse Patient Records regulations: The Federal rules restrict any use of the information to criminally investigate or prosecute any alcohol or drug abuse patient.[facility] TroyIn the event this information is protected by the Federal Confidentiality of Alcohol and Drug Abuse Patient Records regulations: The Federal rules restrict any use of the information to criminally investigate or prosecute any alcohol or drug abuse patient.[facility] TroyIn the event this information is protected by the Federal Confidentiality of Alcohol and Drug Abuse Patient Records regulations: The Federal rules restrict any use of the information to criminally investigate or prosecute any alcohol or drug abuse patient.[facility] TroyIn the event this information is protected by the Federal Confidentiality of Alcohol and Drug Abuse Patient Records regulations: The Federal rules restrict any use of the information to criminally investigate or prosecute any alcohol or drug abuse patient.[facility] TroyIn the event this information is protected by the Federal Confidentiality of Alcohol and Drug Abuse Patient Records regulations: The Federal rules restrict any use of the information to criminally investigate or prosecute any alcohol or drug abuse patient.[facility] TroyIn the event this information is protected by the Federal Confidentiality of Alcohol and Drug Abuse Patient Records regulations: The Federal rules restrict any use of the information to criminally investigate or prosecute any alcohol or drug abuse patient.[facility] TroyIn the event this information is protected by the Federal Confidentiality of Alcohol and Drug Abuse Patient Records regulations: The Federal rules restrict any use of the information to criminally investigate or prosecute any alcohol or drug abuse patient.[facility] TroyIn the event this information is protected by the Federal Confidentiality of Alcohol and Drug Abuse Patient Records regulations: The Federal rules restrict any use of the information to criminally investigate or prosecute any alcohol or drug abuse patient.[facility] TroyIn the event this information is protected by the Federal Confidentiality of Alcohol and Drug Abuse Patient Records regulations: The Federal rules restrict any use of the information to criminally investigate or prosecute any alcohol or drug abuse patient.[facility] TroyIn the event this information is protected by the Federal Confidentiality of Alcohol and Drug Abuse Patient Records regulations: The Federal rules restrict any use of the information to criminally investigate or prosecute any alcohol or drug abuse patient.[facility] TroyIn the event this information is protected by the Federal Confidentiality of Alcohol and Drug Abuse Patient Records regulations: The Federal rules restrict any use of the information to criminally investigate or prosecute any alcohol or drug abuse patient.[facility] TroyIn the event this information is protected by the Federal Confidentiality of Alcohol and Drug Abuse Patient Records regulations: The Federal rules restrict any use of the information to criminally investigate or prosecute any alcohol or drug abuse patient.[facility] TroyIn the event this information is protected by the Federal Confidentiality of Alcohol and Drug Abuse Patient Records regulations: The Federal rules restrict any use of the information to criminally investigate or prosecute any alcohol or drug abuse patient.[facility] TroyIn the event this information is protected by the Federal Confidentiality of Alcohol and Drug Abuse Patient Records regulations: The Federal rules restrict any use of the information to criminally investigate or prosecute any alcohol or drug abuse patient.[facility] TroyIn the event this information is protected by the Federal Confidentiality of Alcohol and Drug Abuse Patient Records regulations: The Federal rules restrict any use of the information to criminally investigate or prosecute any alcohol or drug abuse patient.[facility] TroyIn the event this information is protected by the Federal Confidentiality of Alcohol and Drug Abuse Patient Records regulations: The Federal rules restrict any use of the information to criminally investigate or prosecute any alcohol or drug abuse patient.[facility] TroyIn the event this information is protected by the Federal Confidentiality of Alcohol and Drug Abuse Patient Records regulations: The Federal rules restrict any use of the information to criminally investigate or prosecute any alcohol or drug abuse patient.[facility] TroyIn the event this information is protected by the Federal Confidentiality of Alcohol and Drug Abuse Patient Records regulations: The Federal rules restrict any use of the information to criminally investigate or prosecute any alcohol or drug abuse patient.[facility] TroyIn the event this information is protected by the Federal Confidentiality of Alcohol and Drug Abuse Patient Records regulations: The Federal rules restrict any use of the information to criminally investigate or prosecute any alcohol or drug abuse patient.[facility] TroyIn the event this information is protected by the Federal Confidentiality of Alcohol and Drug Abuse Patient Records regulations: The Federal rules restrict any use of the information to criminally investigate or prosecute any alcohol or drug abuse patient.[facility] TroyIn the event this information is protected by the Federal Confidentiality of Alcohol and Drug Abuse Patient Records regulations: The Federal rules restrict any use of the information to criminally investigate or prosecute any alcohol or drug abuse patient.[facility] TroyIn the event this information is protected by the Federal Confidentiality of Alcohol and Drug Abuse Patient Records regulations: The Federal rules restrict any use of the information to criminally investigate or prosecute any alcohol or drug abuse patient.[facility] TroyIn the event this information is protected by the Federal Confidentiality of Alcohol and Drug Abuse Patient Records regulations: The Federal rules restrict any use of the information to criminally investigate or prosecute any alcohol or drug abuse patient.[facility] TroyIn the event this information is protected by the Federal Confidentiality of Alcohol and Drug Abuse Patient Records regulations: The Federal rules restrict any use of the information to criminally investigate or prosecute any alcohol or drug abuse patient.[facility] TroyIn the event this information is protected by the Federal Confidentiality of Alcohol and Drug Abuse Patient Records regulations: The Federal rules restrict any use of the information to criminally investigate or prosecute any alcohol or drug abuse patient.[facility] TroyIn the event this information is protected by the Federal Confidentiality of Alcohol and Drug Abuse Patient Records regulations: The Federal rules restrict any use of the information to criminally investigate or prosecute any alcohol or drug abuse patient.[facility] TroyIn the event this information is protected by the Federal Confidentiality of Alcohol and Drug Abuse Patient Records regulations: The Federal rules restrict any use of the information to criminally investigate or prosecute any alcohol or drug abuse patient.[facility] TroyIn the event this information is protected by the Federal Confidentiality of Alcohol and Drug Abuse Patient Records regulations: The Federal rules restrict any use of the information to criminally investigate or prosecute any alcohol or drug abuse patient.[facility] TroyIn the event this information is protected by the Federal Confidentiality of Alcohol and Drug Abuse Patient Records regulations: The Federal rules restrict any use of the information to criminally investigate or prosecute any alcohol or drug abuse patient.[facility] TroyIn the event this information is protected by the Federal Confidentiality of Alcohol and Drug Abuse Patient Records regulations: The Federal rules restrict any use of the information to criminally investigate or prosecute any alcohol or drug abuse patient.[facility] TroyIn the event this information is protected by the Federal Confidentiality of Alcohol and Drug Abuse Patient Records regulations: The Federal rules restrict any use of the information to criminally investigate or prosecute any alcohol or drug abuse patient.[facility] TroyIn the event this information is protected by the Federal Confidentiality of Alcohol and Drug Abuse Patient Records regulations: The Federal rules restrict any use of the information to criminally investigate or prosecute any alcohol or drug abuse patient.[facility] TroyIn the event this information is protected by the Federal Confidentiality of Alcohol and Drug Abuse Patient Records regulations: The Federal rules restrict any use of the information to criminally investigate or prosecute any alcohol or drug abuse patient.[facility] TroyIn the event this information is protected by the Federal Confidentiality of Alcohol and Drug Abuse Patient Records regulations: The Federal rules restrict any use of the information to criminally investigate or prosecute any alcohol or drug abuse patient.[facility] TroyIn the event this information is protected by the Federal Confidentiality of Alcohol and Drug Abuse Patient Records regulations: The Federal rules restrict any use of the information to criminally investigate or prosecute any alcohol or drug abuse patient.[facility] TroyIn the event this information is protected by the Federal Confidentiality of Alcohol and Drug Abuse Patient Records regulations: The Federal rules restrict any use of the information to criminally investigate or prosecute any alcohol or drug abuse patient.[facility] TroyIn the event this information is protected by the Federal Confidentiality of Alcohol and Drug Abuse Patient Records regulations: The Federal rules restrict any use of the information to criminally investigate or prosecute any alcohol or drug abuse patient.[facility] TroyIn the event this information is protected by the Federal Confidentiality of Alcohol and Drug Abuse Patient Records regulations: The Federal rules restrict any use of the information to criminally investigate or prosecute any alcohol or drug abuse patient.[facility] TroyIn the event this information is protected by the Federal Confidentiality of Alcohol and Drug Abuse Patient Records regulations: The Federal rules restrict any use of the information to criminally investigate or prosecute any alcohol or drug abuse patient.[facility] TroyIn the event this information is protected by the Federal Confidentiality of Alcohol and Drug Abuse Patient Records regulations: The Federal rules restrict any use of the information to criminally investigate or prosecute any alcohol or drug abuse patient.[facility] TroyIn the event this information is protected by the Federal Confidentiality of Alcohol and Drug Abuse Patient Records regulations: The Federal rules restrict any use of the information to criminally investigate or prosecute any alcohol or drug abuse patient.[facility] TroyIn the event this information is protected by the Federal Confidentiality of Alcohol and Drug Abuse Patient Records regulations: The Federal rules restrict any use of the information to criminally investigate or prosecute any alcohol or drug abuse patient.[facility] TroyIn the event this information is protected by the Federal Confidentiality of Alcohol and Drug Abuse Patient Records regulations: The Federal rules restrict any use of the information to criminally investigate or prosecute any alcohol or drug abuse patient.[facility] TroyIn the event this information is protected by the Federal Confidentiality of Alcohol and Drug Abuse Patient Records regulations: The Federal rules restrict any use of the information to criminally investigate or prosecute any alcohol or drug abuse patient.[facility] TroyIn the event this information is protected by the Federal Confidentiality of Alcohol and Drug Abuse Patient Records regulations: The Federal rules restrict any use of the information to criminally investigate or prosecute any alcohol or drug abuse patient.[facility] TroyIn the event this information is protected by the Federal Confidentiality of Alcohol and Drug Abuse Patient Records regulations: The Federal rules restrict any use of the information to criminally investigate or prosecute any alcohol or drug abuse patient.[facility] TroyIn the event this information is protected by the Federal Confidentiality of Alcohol and Drug Abuse Patient Records regulations: The Federal rules restrict any use of the information to criminally investigate or prosecute any alcohol or drug abuse patient.[facility] TroyIn the event this information is protected by the Federal Confidentiality of Alcohol and Drug Abuse Patient Records regulations: The Federal rules restrict any use of the information to criminally investigate or prosecute any alcohol or drug abuse patient.[facility] TroyIn the event this information is protected by the Federal Confidentiality of Alcohol and Drug Abuse Patient Records regulations: The Federal rules restrict any use of the information to criminally investigate or prosecute any alcohol or drug abuse patient.[facility] TroyIn the event this information is protected by the Federal Confidentiality of Alcohol and Drug Abuse Patient Records regulations: The Federal rules restrict any use of the information to criminally investigate or prosecute any alcohol or drug abuse patient.[facility] TroyIn the event this information is protected by the Federal Confidentiality of Alcohol and Drug Abuse Patient Records regulations: The Federal rules restrict any use of the information to criminally investigate or prosecute any alcohol or drug abuse patient.[facility] TroyIn the event this information is protected by the Federal Confidentiality of Alcohol and Drug Abuse Patient Records regulations: The Federal rules restrict any use of the information to criminally investigate or prosecute any alcohol or drug abuse patient.[facility] TroyIn the event this information is protected by the Federal Confidentiality of Alcohol and Drug Abuse Patient Records regulations: The Federal rules restrict any use of the information to criminally investigate or prosecute any alcohol or drug abuse patient.[facility] TroyIn the event this information is protected by the Federal Confidentiality of Alcohol and Drug Abuse Patient Records regulations: The Federal rules restrict any use of the information to criminally investigate or prosecute any alcohol or drug abuse patient.[facility] TroyIn the event this information is protected by the Federal Confidentiality of Alcohol and Drug Abuse Patient Records regulations: The Federal rules restrict any use of the information to criminally investigate or prosecute any alcohol or drug abuse patient.[facility] TroyIn the event this information is protected by the Federal Confidentiality of Alcohol and Drug Abuse Patient Records regulations: The Federal rules restrict any use of the information to criminally investigate or prosecute any alcohol or drug abuse patient.[facility] TroyIn the event this information is protected by the Federal Confidentiality of Alcohol and Drug Abuse Patient Records regulations: The Federal rules restrict any use of the information to criminally investigate or prosecute any alcohol or drug abuse patient.[facility] TroyIn the event this information is protected by the Federal Confidentiality of Alcohol and Drug Abuse Patient Records regulations: The Federal rules restrict any use of the information to criminally investigate or prosecute any alcohol or drug abuse patient.[facility] TroyIn the event this information is protected by the Federal Confidentiality of Alcohol and Drug Abuse Patient Records regulations: The Federal rules restrict any use of the information to criminally investigate or prosecute any alcohol or drug abuse patient.[facility] TroyIn the event this information is protected by the Federal Confidentiality of Alcohol and Drug Abuse Patient Records regulations: The Federal rules restrict any use of the information to criminally investigate or prosecute any alcohol or drug abuse patient.[facility] TroyIn the event this information is protected by the Federal Confidentiality of Alcohol and Drug Abuse Patient Records regulations: The Federal rules restrict any use of the information to criminally investigate or prosecute any alcohol or drug abuse patient.[facility] TroyIn the event this information is protected by the Federal Confidentiality of Alcohol and Drug Abuse Patient Records regulations: The Federal rules restrict any use of the information to criminally investigate or prosecute any alcohol or drug abuse patient.[facility] TroyIn the event this information is protected by the Federal Confidentiality of Alcohol and Drug Abuse Patient Records regulations: The Federal rules restrict any use of the information to criminally investigate or prosecute any alcohol or drug abuse patient.[facility] TroyIn the event this information is protected by the Federal Confidentiality of Alcohol and Drug Abuse Patient Records regulations: The Federal rules restrict any use of the information to criminally investigate or prosecute any alcohol or drug abuse patient.[facility] TroyIn the event this information is protected by the Federal Confidentiality of Alcohol and Drug Abuse Patient Records regulations: The Federal rules restrict any use of the information to criminally investigate or prosecute any alcohol or drug abuse patient.[facility] TroyIn the event this information is protected by the Federal Confidentiality of Alcohol and Drug Abuse Patient Records regulations: The Federal rules restrict any use of the information to criminally investigate or prosecute any alcohol or drug abuse patient.[facility] TroyIn the event this information is protected by the Federal Confidentiality of Alcohol and Drug Abuse Patient Records regulations: The Federal rules restrict any use of the information to criminally investigate or prosecute any alcohol or drug abuse patient.[facility] TroyIn the event this information is protected by the Federal Confidentiality of Alcohol and Drug Abuse Patient Records regulations: The Federal rules restrict any use of the information to criminally investigate or prosecute any alcohol or drug abuse patient.[facility] TroyIn the event this information is protected by the Federal Confidentiality of Alcohol and Drug Abuse Patient Records regulations: The Federal rules restrict any use of the information to criminally investigate or prosecute any alcohol or drug abuse patient.[facility] TroyIn the event this information is protected by the Federal Confidentiality of Alcohol and Drug Abuse Patient Records regulations: The Federal rules restrict any use of the information to criminally investigate or prosecute any alcohol or drug abuse patient.[facility] TroyIn the event this information is protected by the Federal Confidentiality of Alcohol and Drug Abuse Patient Records regulations: The Federal rules restrict any use of the information to criminally investigate or prosecute any alcohol or drug abuse patient.[facility] TroyIn the event this information is protected by the Federal Confidentiality of Alcohol and Drug Abuse Patient Records regulations: The Federal rules restrict any use of the information to criminally investigate or prosecute any alcohol or drug abuse patient.[facility] TroyIn the event this information is protected by the Federal Confidentiality of Alcohol and Drug Abuse Patient Records regulations: The Federal rules restrict any use of the information to criminally investigate or prosecute any alcohol or drug abuse patient.[facility] TroyIn the event this information is protected by the Federal Confidentiality of Alcohol and Drug Abuse Patient Records regulations: The Federal rules restrict any use of the information to criminally investigate or prosecute any alcohol or drug abuse patient.[facility] TroyIn the event this information is protected by the Federal Confidentiality of Alcohol and Drug Abuse Patient Records regulations: The Federal rules restrict any use of the information to criminally investigate or prosecute any alcohol or drug abuse patient.[facility] TroyIn the event this information is protected by the Federal Confidentiality of Alcohol and Drug Abuse Patient Records regulations: The Federal rules restrict any use of the information to criminally investigate or prosecute any alcohol or drug abuse patient.[facility] TroyIn the event this information is protected by the Federal Confidentiality of Alcohol and Drug Abuse Patient Records regulations: The Federal rules restrict any use of the information to criminally investigate or prosecute any alcohol or drug abuse patient.[facility] TroyIn the event this information is protected by the Federal Confidentiality of Alcohol and Drug Abuse Patient Records regulations: The Federal rules restrict any use of the information to criminally investigate or prosecute any alcohol or drug abuse patient.[facility] TroyIn the event this information is protected by the Federal Confidentiality of Alcohol and Drug Abuse Patient Records regulations: The Federal rules restrict any use of the information to criminally investigate or prosecute any alcohol or drug abuse patient.[facility] TroyIn the event this information is protected by the Federal Confidentiality of Alcohol and Drug Abuse Patient Records regulations: The Federal rules restrict any use of the information to criminally investigate or prosecute any alcohol or drug abuse patient.[facility] TroyIn the event this information is protected by the Federal Confidentiality of Alcohol and Drug Abuse Patient Records regulations: The Federal rules restrict any use of the information to criminally investigate or prosecute any alcohol or drug abuse patient.[facility] TroyIn the event this information is protected by the Federal Confidentiality of Alcohol and Drug Abuse Patient Records regulations: The Federal rules restrict any use of the information to criminally investigate or prosecute any alcohol or drug abuse patient.[facility] TroyIn the event this information is protected by the Federal Confidentiality of Alcohol and Drug Abuse Patient Records regulations: The Federal rules restrict any use of the information to criminally investigate or prosecute any alcohol or drug abuse patient.[facility] Reason for Visit (unrecogniz ed section and content) Reason Comments PT Eval Specialty Diagnoses / Procedures Referred By Contac t Referred To Contact Physical Therapy / PHYSICAL THERAPY Diagnoses CONSULT/WEAKNESS Procedures NEW RS PT ORTH Arlene Bruce MD [address] [place] [address] Phone: tel: fax: Sarah Merchant, PT [address] [place] [address] Phone: tel: Referral ID Status Reason Start Date Expiration Date V isits Requested Visits Authorized [id number] Authorized 09/07/2024 05/02/2025 99 99 Reason Comments Physical Therapy Specialty Diagnoses / Procedures Referred By Contac t Referred To Contact Physical Therapy / PHYSICAL THERAPY Diagnoses Right knee Procedures NEW RS PT ORTH Geeta Grimaldo PA-C [address] [place] [address] Sarah Merchant, PT [address] [place] [address] Referral ID Status Reason Start Date Expiration Date V isits Requested Visits Authorized [id number] Authorized 11/15/2023 05/02/2024 99 99 Reason Comments [...] Outreach 06/02/2022 Healthy at Home - [facility] Reason Comments Extreme fatigue Reason Comments Fatigue Extreme fatigue , so b and sleeping a lot. For a couple months Reason Comments Medication Problem Reason Onset Date Comments Refill Request 06/29/2022 Reason Onset Date Comments Refill Request 09/29/2022 Reason Comments Follow Up Reason Comments Spirometry Specialty Diagnoses / Procedures Referred By Contac t Referred To Contact [facility] Diagnoses WELCH (dyspnea on exertion) Procedures SPIROMETRY - BASELINE AND POST DILATOR BRNCDILAT RSPSE SPMTRY PRE&POST-BRNCDILAT ADMN Michael Puga, DO [address] [place] [address] Respiratory [facility] [address] [place] [address] Referral ID Status Reason Start Date Expiration Date V isits Requested Visits Authorized [id number] Closed Auto-Generate d Referral 12/22/2022 01/21/2024 1 1 Reason Comments Orders Reason Onset Date Comments F/U 3 Month Immunizations 04/05/2023 Flu vaccination Reason Onset Date Comments Transition Of Care 10/04/2023 TCM / [place] 10/01/OON Reason Comments HH: orders, update, medications Reason [...] pain Procedures CONSULT TO GENERAL SURGERY OFFICE/OUTPATIENT [facility] 60 MINUTES Michael Puga, DO [address] [place] [address] Referral ID Status Reason Start Date Expiration Date V isits Requested Visits Authorized [id number] Closed PCP Requested Referral 03/01/2024 03/01/2025 1 [...] Care Teams (unrecognized sec tion and content) Line Assembler Aircraft Relationship Specialty Start Date End Date Michael Puga, DO [address] [place] [address] PCP - General Family Practice 05/06/16 Line Assembler Aircraft Relationship Specialty Start Date End Date Michael Puga, DO [address] [place] [address] PCP - General Family Practice 05/06/16 Line Assembler [employer] Relationship Specialty Start Date End Date Michael Puga, DO [address] [place] [address] PCP - General Family Practice 05/06/16 Line Assembler Aircraft Relationship Specialty Start Date End Date Michael Puga, DO [address] [place] [address] PCP - General Family Practice 05/06/16 Line Assembler Aircraft Relationship Specialty Start Date End Date Michael Puga, DO [address] [place] [address] PCP - General Family Practice 05/06/16 Line Assembler Aircraft Relationship Specialty Start Date End Date Michael Puga, DO [address] [place] [address] PCP - General Family Practice 05/06/16 Line Assembler Aircraft Relationship Specialty Start Date End Date Michael Puga, DO [address] [place] [address] PCP - General Family Practice 05/06/16 Line Assembler Aircraft Relationship Specialty Start Date End Date Michael Puga, DO [address] [place] [address] PCP - General Family Medicine 05/06/16 Line Assembler Aircraft Relationship Specialty Start Date End Date Michael Puga, DO [address] [place] [address] PCP - General Family Medicine 05/06/16 Line Assembler Aircraft Relationship Specialty Start Date End Date Michael Puga, DO [address] [place] [address] PCP - General Family Medicine 05/06/16 Line Assembler Aircraft Relationship Specialty Start Date End Date Michael Puga, DO [address] [place] [address] PCP - General Family Medicine 05/06/16 Line Assembler Aircraft Relationship Specialty Start Date End Date Michael Puga, DO [address] [place] [address] PCP - General Family Medicine 05/06/16 Line Assembler Aircraft Relationship Specialty Start Date End Date Michael Puga, DO [address] [place] [address] PCP - General Family Medicine 05/06/16 Line Assembler Aircraft Relationship Specialty Start Date End Date Michael Puga, DO [address] [place] [address] PCP - General Family Medicine 05/06/16 Line Assembler Aircraft Relationship Specialty Start Date End Date Michael Puga, DO [address] [place] [address] PCP - General Family Medicine 05/06/16 Line Assembler Aircraft Relationship Specialty Start Date End Date Michael Puga DO [address] [place] [address] PCP - General Family Medicine 05/06/16 Line Assembler Aircraft Relationship Specialty Start Date End Date Michael Puga DO [address] [place] [address] PCP - General Family Medicine 05/06/16 Line Assembler Aircraft Relationship Specialty Start Date End Date Michael Puga DO [address] [place] [address] PCP - General Family Medicine 05/06/16 Line Assembler Aircraft Relationship Specialty Start Date End Date Michael Puga DO [address] [place] [address] PCP - General Family Medicine 05/06/16 Line Assembler Aircraft Relationship Specialty Start Date End Date Michael Puga DO [address] [place] [address] PCP - General Family Medicine 05/06/16 Line Assembler Aircraft Relationship Specialty Start Date End Date Michael Puga DO [address] [place] [address] PCP - General Family Medicine 05/06/16 Line Assembler Aircraft Relationship Specialty Start Date End Date Michael Puga DO [address] [place] [address] PCP - General Family Medicine 05/06/16 Line Assembler Aircraft Relationship Specialty Start Date End Date Michael Puga DO [address] [place] [address] PCP - General Family Medicine 05/06/16 Isabella Michel, GLYNN [address] [place] [address] Primary Care Boiler Plant Operator 10/04/23 Line Assembler Aircraft Relationship Specialty Start Date End Date Michael Puga DO [address] [facility] [address] PCP - General Family Medicine 05/06/16 Isabella Michel, RN [address] [place] [address] Primary Care Boiler Plant Operator 10/04/23 Line Assembler Aircraft Relationship Specialty Start Date End Date Michael Puga DO [address] [place] [address] PCP - General Family Medicine 05/06/16 Isabella Michel, RN [address] [place] [address] Primary Care Boiler Plant Operator 10/04/23 Line Assembler Aircraft Relationship Specialty Start Date End Date Michael Puga DO [address] [place] [address] PCP - General Family Medicine 05/06/16 Isabella Michel, RN [address] [facility] [place] [address] Primary Care Boiler Plant Operator 10/04/23 Line Assembler Aircraft Relationship Specialty Start Date End Date Michael Puga DO [address] [place] [address] PCP - General Family Medicine 05/06/16 Isabella Michel, GLYNN [address] [facility] [place] [place] [address] Primary Care Boiler Plant Operator 10/04/23 Line Assembler Aircraft Relationship Specialty Start Date End Date Michael Puga DO [address] [place] [address] PCP - General Family Medicine 05/06/16 Isabella Michel, RN [address] [place] [address] Primary Care Boiler Plant Operator 10/04/23 Line Assembler Aircraft Relationship Specialty Start Date End Date Michael Puga DO [address] [place] [address] PCP - General Family Medicine 05/06/16 Line Assembler Aircraft Relationship Specialty Start Date End Date Michael Puga DO [address] [place] [address] PCP - General Family Medicine 05/06/16 Line Assembler Aircraft Relationship Specialty Start Date End Date Michael Puga DO [address] [place] [address] PCP - General Family Medicine 05/06/16 Line Assembler Aircraft Relationship Specialty Start Date End Date Michael Puga DO [address] [place] [address] PCP - General Family Medicine 05/06/16 Line Assembler Aircraft Relationship Specialty Start Date End Date Michael Puga DO [address] [place] [address] PCP - General Family Medicine 05/06/16 Line Assembler Aircraft Relationship Specialty Start Date End Date Michael Puga DO [address] [place] [address] PCP - General Family Medicine 05/06/16 Line Assembler Aircraft Relationship Specialty Start Date End Date Michael Puga DO [address] [place] [address] PCP - General Family Medicine 05/06/16 Line Assembler Aircraft Relationship Specialty Start Date End Date Michael Puga DO [address] [place] [address] PCP - General Family Medicine 05/06/16 Line Assembler Aircraft Relationship Specialty Start Date End Date Michael Puga, [address] [place] [address] PCP - General Family Medicine 05/06/16 Line Assembler Aircraft Relationship Specialty Start Date End Date Michael Puga, [address] [place] [address] PCP - General Family Medicine 05/06/16 Line Assembler Aircraft Relationship Specialty Start Date End Date Michael Puga, [address] [place] [address] PCP - General Family Medicine 05/06/16 Line Assembler Aircraft Relationship Specialty Start Date End Date Michael Puga, [address] [place] [address] PCP - General Family Medicine 05/06/16 Line Assembler Aircraft Relationship Specialty Start Date End Date Michael Puga DO [address] [place] [address] PCP - General Family Medicine 05/06/16 Line Assembler Aircraft Relationship Specialty Start Date End Date Michael Puga, [address] [place] [address] PCP - General Family Medicine 05/06/16 Line Assembler Aircraft Relationship Specialty Start Date End Date Michael Puga DO [address] [place] [address] PCP - General Family Medicine 05/06/16 Line Assembler Aircraft Relationship Specialty Start Date End Date Michael Puga, [address] [place] [address] PCP - General Family Medicine 05/06/16 Line Assembler Aircraft Relationship Specialty Start Date End Date Michael Puga DO [address] [place] [address] PCP - General Family Medicine 05/06/16 Line Assembler Aircraft Relationship Specialty Start Date End Date Michael Puga DO [address] [place] [address] PCP - General Family Medicine 05/06/16 Line Assembler Aircraft Relationship Specialty Start Date End Date Michael Puga DO [address] [place] [address] PCP - General Family Medicine 05/06/16 Key Portillo, HOUSE DIRECTOR.STEREOPTIC PROJECTION TOPOGRAPHER [address] [place] [address] Manager Competitive Intelligence Family Medicine 04/09/24 Asia Rosales, HOUSE DIRECTOR.STEREOPTIC PROJECTION TOPOGRAPHER [address] [place] [address] Manager Competitive Intelligence Family Medicine 04/09/24 Line Assembler Aircraft Relationship Specialty Start Date End Date Michael Puga DO [address] [place] [address] PCP - General Family Medicine 05/06/16 Key Portillo, HOUSE DIRECTOR.STEREOPTIC PROJECTION TOPOGRAPHER [address] [place] [address] Manager Competitive Intelligence Family Medicine 04/09/24 Asia Rosales, HOUSE DIRECTOR.STEREOPTIC PROJECTION TOPOGRAPHER [address] [place] [address] Manager Competitive Intelligence Family Medicine 04/09/24 Line Assembler Aircraft Relationship Specialty Start Date End Date Michael Puga DO [address] [place] [address] PCP - General Family Medicine 05/06/16 Key Portillo, HOUSE DIRECTOR.STEREOPTIC PROJECTION TOPOGRAPHER [address] [facility] [place] [address] [facility] 04/09/24 SherryAsia, HOUSE DIRECTOR.STEREOPTIC PROJECTION TOPOGRAPHER [address] [facility] [place] [address] [facility] 04/09/24 Line Assembler Aircraft Relationship Specialty Start Date End Date Michael Puga DO [address] [facility] [place] [address] PCP - General Family Medicine 05/06/16 Key Portillo, HOUSE DIRECTOR.STEREOPTIC PROJECTION TOPOGRAPHER [address] [facility] [place] [address] Manager Comp[facility] 04/09/24 SherryAsia, HOUSE DIRECTOR.STEREOPTIC PROJECTION TOPOGRAPHER [address] [facility] [place] [address] [facility] 04/09/24 Line Assembler Aircraft Relationship Specialty Start Date End Date Michael Puga DO [address] [facility] [place] [address] PCP - General Family Medicine 05/06/16 Key Portillo, HOUSE DIRECTOR.STEREOPTIC PROJECTION TOPOGRAPHER [address] [facility] [place] [address] Manager Competitive Intelligence Family [facility] 04/09/24 Asia Rosales, HOUSE DIRECTOR.STEREOPTIC PROJECTION TOPOGRAPHER [address] [place] [address] [facility] 04/09/24 Line Assembler Aircraft Relationship Specialty Start Date End Date Michael Puga DO [address] [facility] [place] [address] PCP - General Family Medicine 05/06/16 Key Portillo, HOUSE DIRECTOR.STEREOPTIC PROJECTION TOPOGRAPHER [address] [place] [address] Manager Comp[facility] 04/09/24 Asia Rosales, HOUSE DIRECTOR.STEREOPTIC PROJECTION TOPOGRAPHER [address] [place] [address] [facility] 04/09/24 Line Assembler Aircraft Relationship Specialty Start Date End Date Michael Puga DO [address] [place] [address] PCP - General Family Medicine 05/06/16 Key Portillo, HOUSE DIRECTOR.STEREOPTIC PROJECTION TOPOGRAPHER [address] [place] [address] [facility] 04/09/24 SherryAsia, HOUSE DIRECTOR.STEREOPTIC PROJECTION TOPOGRAPHER [address] [place] [address] [facility] 04/09/24 Line Assembler Aircraft Relationship Specialty Start Date End Date Michael Puga DO [address] [place] [place] [address] PCP - General Family Medicine 05/06/16 Key Portillo, HOUSE DIRECTOR.STEREOPTIC PROJECTION TOPOGRAPHER [address] [place] [address] Manager Competitive Intelligence Family Medicine 04/09/24 Asia Rosales, HOUSE DIRECTOR.STEREOPTIC PROJECTION TOPOGRAPHER [address] [place] [address] Manager Competitive Intelligence Family [facility] 04/09/24 Line Assembler Aircraft Relationship Specialty Start Date End Date Michael Puga DO [address] [place] [address] PCP - General Family Medicine 05/06/16 Key Portillo, HOUSE DIRECTOR.STEREOPTIC PROJECTION TOPOGRAPHER [address] [place] [address] Manager Competitive Intelligence Family [facility] 04/09/24 Asia Rosales, HOUSE DIRECTOR.STEREOPTIC PROJECTION TOPOGRAPHER [address] [place] [address] Manager Competitive Intelligence Family [facility] 04/09/24 Line Assembler Aircraft Relationship Specialty Start Date End Date Michael Puga DO [address] [place] [address] PCP - General Family Medicine 05/06/16 Key Portillo, HOUSE DIRECTOR.STEREOPTIC PROJECTION TOPOGRAPHER [address] [place] [address] Manager Competitive Intelligence Family [facility] 04/09/24 Asia Rosales, HOUSE DIRECTOR.STEREOPTIC PROJECTION TOPOGRAPHER [address] [place] [address] Manager Competitive Intelligence Family [facility] 04/09/24 Line Assembler Aircraft Relationship Specialty Start Date End Date Michael Puga DO [address] [place] [address] PCP - General Family Medicine 05/06/16 Key Portillo, HOUSE DIRECTOR.STEREOPTIC PROJECTION TOPOGRAPHER [address] [place] [address] Manager Competitive Intelligence [facility] 04/09/24 Asia Rosales, HOUSE DIRECTOR.STEREOPTIC PROJECTION TOPOGRAPHER [address] [place] [address] Manager Comp[facility] 04/09/24 Line Assembler Aircraft Relationship Specialty Start Date End Date Michael Puga DO [address] [place] [address] PCP - General Family Medicine 05/06/16 Key Portillo, HOUSE DIRECTOR.STEREOPTIC PROJECTION TOPOGRAPHER [address] [place] [address] Manager Comp[facility] 04/09/24 Asia Rosales, HOUSE DIRECTOR.STEREOPTIC PROJECTION TOPOGRAPHER [address] [place] [address] Manager Comp[facility]St[facility] 04/09/24 Team Status: Active Member Role Status [...] 01, 2024 End: June 01, 2024 Anabel ALVA, PA Attending Provider Active Start: June 01, [...] 22, 2024 End: June 22, 2024 Anabel M Horne PA, PA Attending Provider Active Start: [...] July 07, 2024 End: July 07, 2024 Line Assembler Aircraft Relationship Specialty Start Date End Date Michael Puga DO [address] [place] [address] PCP - General Family Medicine 05/06/16 Asia Rosales APRN.STEREOPTIC PROJECTION TOPOGRAPHER [address] [place], [place] [address] Manager Competitive Intelligence Family [facility] 04/09/24 Line Assembler Aircraft Relationship Specialty Start Date End Date Michael Puga DO [address] [place], [place] [address] [phone] PCP - General Family Medicine 05/06/16 Asia Rosales, HOUSE DIRECTOR.STEREOPTIC PROJECTION TOPOGRAPHER [address] [place] [address] Manager Competitive Intelligence Family [facility] 04/09/24 Line Assembler Aircraft Relationship Specialty Start Date End Date Michael Puga DO [address] [place] [address] PCP - General Family Medicine 05/06/16 Asia Rosales, HOUSE DIRECTOR.STEREOPTIC PROJECTION TOPOGRAPHER [address] [place] [address] Manager Competitive Intelligence Family [facility] 04/09/24 Line Assembler Aircraft Relationship Specialty Start Date End Date Michael Puga DO [address] [place] [address] PCP - General Family Medicine 05/06/16 Asia Rosales, HOUSE DIRECTOR.STEREOPTIC PROJECTION TOPOGRAPHER [address] [place] [address] Manager Competitive Intelligence [facility] 04/09/24 Line Assembler Aircraft Relationship Specialty Start Date End Date Michael Puga DO [address] [place] [address] PCP - General Family Medicine 05/06/16 Asia Rosales, HOUSE DIRECTOR.STEREOPTIC PROJECTION TOPOGRAPHER [address] [place] [address] Manager Competitive Intelligence [facility] 04/09/24 Line Assembler Aircraft Relationship Specialty Start Date End Date Michael Puga DO [address] [place] [address] PCP - General Family Medicine 05/06/16 SherryAsia, HOUSE DIRECTOR.STEREOPTIC PROJECTION TOPOGRAPHER [address] [place] [address] Manager Competitive Intelligence Family [facility] 04/09/24 Line Assembler Aircraft Relationship Specialty Start Date End Date Michael Puga DO [address] [place] [address] PCP - General Family Medicine 05/06/16 SherryAsia, HOUSE DIRECTOR.STEREOPTIC PROJECTION TOPOGRAPHER [address] [place] [address] Manager Competitive Intelligence Family Medicine 04/09/24 Line Assembler Aircraft Relationship Specialty Start Date End Date Michael Puga DO [address] [place] [address] PCP - General Family Medicine 05/06/16 SherryAsia, HOUSE DIRECTOR.STEREOPTIC PROJECTION TOPOGRAPHER [address] [place] [address] Manager [employer] Family Medicine 04/09/24 [employer] Relationship Specialty Start Date End Date Michael Puga DO [address] [place] [address] PCP - General Family Medicine 05/06/16 SherryAsia, HOUSE DIRECTOR.STEREOPTIC PROJECTION TOPOGRAPHER [address] [place] [address] Manager [employer] Family Medicine 04/09/24 Isela Barton, HOUSE DIRECTOR.STEREOPTIC PROJECTION TOPOGRAPHER [address] [place] [address] [facility] 10/16/24 [employer] Relationship Specialty Start Date End Date Michael Puga DO [address] [place], [place] [id number] PCP - General Family Medicine 05/06/16 Asia Rosales, HOUSE DIRECTOR.STEREOPTIC PROJECTION TOPOGRAPHER [address] [place] [address] [facility] 04/09/24 Isela Barton, HOUSE DIRECTOR.STEREOPTIC PROJECTION TOPOGRAPHER [address] [place] [address] [facility] 10/16/24 Team Status: Active Member Role/Relationship Status Dates Dr. Michael Puga DO Primary Care Provider Active Team Status: Inactive Member Role/Relationship Status Dates Dr. Michael Puga DO Primary Care Provider Active Start: July 03, 2024 End: July 03, 2024 Anabel ALVA PA Attending Provider Active Start: July 03, [...] October 23, 2024 End: October 23, 2024 [employer] Relationship Specialty Start Date End Date Michael Puga DO [address] [place], [place] [id number] PCP - General Family Medicine 05/06/16 Asia Rosales, HOUSE DIRECTOR.STEREOPTIC PROJECTION TOPOGRAPHER [address] [place], [place] [id number] Manager [employer]etitive Intelligence Family Medicine 04/09/24 Isela Barton, HOUSE DIRECTOR.STEREOPTIC PROJECTION TOPOGRAPHER [address] [place], [place] [id number] Manager [employer] Family Medicine 10/16/24 Team Status: Inactive Member [...] Provider Active Start: October 31, 2024 Anabel ALVA PA Attending Provider Active Start: October 31, 2024 Anabel ALVA, PA Referring Provider Active Start: October 31, [...] 31, 2024 End: October 31, 2024 Anabel ALVA PA Attending Provider Active Start: October 31, 2024 End: October 31, 2024 Anabel ALVA, PA Referring Provider Active Start: October 31, [...] October 16, 2024 Dr. Gallo Hickey MD Referring Provider Active S tart: October 16, 2024 End: October 16, 2024 Team Status: Inactive Member Role/Relationship Status Dates Dr. Michael Puga DO Primary Care Provider Active Start: October 23, 2024 End: October 23, 2024 Dr. Gallo Hickey MD Attending Provider Active S tart: October 23, 2024 End: October 23, 2024 Dr. Gallo Hickey MD Referring Provider Active S tart: October 23, 2024 End: October 23, 2024 Team Status: Inactive Member Role/Relationship Status Dates Dr. Michael Puga DO Primary Care Provider Active Start: October 27, 2024 End: October 27, 2024 Dr. Gallo Hickey MD Attending Provider Active S tart: October 27, 2024 End: October 27, 2024 Dr. Gallo Hickey MD Referring Provider Active S tart: October 27, 2024 End: October 27, 2024 Team Status: Inactive Member Role/Relationship Status Dates Dr. Michael Puga DO Primary Care Provider Active Start: October 31, 2024 End: October 31, 2024 Anabel ALVA PA Attending Provider Active Start: October 31, 2024 End: October 31, 2024 Anabel ALVA PA Referring Provider Active Start: October 31, 2024 End: October 31, 2024 Team Status: Inactive Member Role/Relationship Status Dates Dr. Michael Puag DO Primary Care Provider Active Start: November 02, 2024 End: November 02, 2024 Dr. Michael Puga DO Referring Provider Active Start: November 02, 2024 End: November 02, 2024 Anabel ALVA PA Attending Provider Active Start: November 02, 2024 End: November 02, 2024 Team Status: Active Member Role/Relationship Status Dates Dr. Michael Puga DO Primary Care Provider Active Start: November 29, 2024 Dr. Virgil Tyler DO Emergency Provider Active Start: November 29, 2024 Dr. Tacho Davis DO Admit Provider Active Start: November 29, 2024 Dr. Tacho Davis DO Attending Provider Active Start: November 29, 2024 Team Status: Inactive Member Role/Relationship Status Dates Dr. Michael Puga DO Primary Care Provider Active Start: November 29, 2024 End: December 03, 2024 Dr. Virgil Tyler , Emergency Provider Active Start: November 29, 2024 End: December 03, 2024 Dr. Tacho Davis , Admit Provider Active Start: November 29, 2024 End: December 03, 2024 Dr. Tacho Davis , Other Provider Active Start: November 29, 2024 End: December 03, 2024 Dr. Waleska Phillips MD Attending Provider Active Start: November 29, 2024 End: December 03, 2024 Dr. Jonny Vicente MD Other Provider Active Start: November 29, 2024 End: December 03, 2024 Team Status: Active Member Role/Relationship Status Dates Dr. Michael Puga DO Primary Care Provider Active Start: November 30, 2024 Dr. Gallo Hickey MD Attending Provider Active S tart: November 30, 2024 Team Status: Active Member Role/Relationship Status Dates Dr. Michael Puga DO Primary Care Provider Active Start: November 30, 2024 Dr. Virgil Tyler , DO Emergency Provider Active Start: November 30, 2024 Dr. Tacho Davis DO Admit Provider Active Start: November 30, 2024 Dr. Tacho Davis DO Other Provider Active Start: November 30, 2024 Dr. Jonny Vicente MD Attending Provider Active Start: November 30, 2024 Dr. Jonny Vicente MD Other Provider Active Start: November 30, 2024 Team Status: Active Member Role/Relationship Status Dates Dr. Micahel Puga DO Primary Care Provider Active Start: December 01, 2024 Dr. Virgil Tyler DO Emergency Provider Active Start: December 01, 2024 Dr. Tacho Davis DO Admit Provider Active Start: December 01, 2024 Dr. Tacho Davis DO Other Provider Active Start: December 01, 2024 Dr. Waleska Phillips MD Attending Provider Active Start: December 01, 2024 Dr. Waleska Phillips MD Other Provider Active Star t: December 01, 2024 Dr. Jonny Vicente MD Other Provider Active Start: December 01, 2024 Team Status: Active Member Role/Relationship Status Dates Dr. Michael Puga DO Primary Care Provider Active Start: December 02, 2024 Dr. Virgil Tyler , DO Emergency Provider Active Start: December 02, 2024 Dr. Tacho Davis DO Admit Provider Active Start: December 02, 2024 Dr. Tacho Davis DO Other Provider Active Start: December 02, 2024 Dr. Waleska Phillips MD Attending Provider Active Start: December 02, 2024 Dr. Waleska Phillips MD Other Provider Active Star t: December 02, 2024 Dr. Jonny Vicente MD Other Provider Active Start: December 02, 2024 Goals (unrecognized section and content) [...] BE BASED ON THE PRIMARY CLINICAL RECORDS. [employer] provides no warranty or guarantee of the accuracy or completeness of information in this document.
--- OUTSIDE RECORDS SUMMARY | 2024-12-03 16:18 | XMS RPT_ITS | CCD ---
Author Organization [facility] Care Team Providers Care Motorboat Mechanic Inboard/Outboard Name Role Phone GLYNN Harris, Lisa Ennis [...] Taina SZYMANSKI, Dr. Herman Attending Provider Mick BAFFLE MOUNTER.PERFORMANCE IMPROVEMENT COORDINATOR, Isela Radu Unavailable Edd VELASCO, Dr. Rodriguez Primary Care Provider [phone] Anabel Alexander Attending Provider Anabel Alexander Referring [...] Primary Care Unavailable JANASGEETA Referring Unavailab le PUGA, MICHAEL L Primary Care Unavailable JANGEETA PENADIPHU Referring Unavailab le PUGA, MICHAEL L Primary Care Unavailable JANAS, GEETA TEJADA Referring Unavailab le PUGA, MICHAEL L Primary Care Unavailable JANGEETA PENADICT Referring Unavailab le JANASGEETADIPHU Referring Unavailab le PUGA, MICHAEL L [...] SCHWARZ Referring Unavailable SHOSHANAGEETA Referring Unavailab le PGUA, MICHAEL L Primary Care Unavailable PUGA, MICHAEL L Primary Care Unavailable KEY PORTILLO Referring Unavailabl e PUGA, MICHAEL L Primary Care Unavailable GEETA CADET Referring Unavailab le Puga Dr. Michael VELASCO Primary Care Provider Anabel Alexander Attending Provider [...] Provider Edelmira SZYMANSKI, Dr. Holder Attending Provider [phone] Edelmira SZYMANSKI, Dr. Holder Referring Provider [phone] Dr. Virgil Tyler DO Emergency Provider [phone] Davis DO, Dr. Titus Admit Provider Unavail able Davis DO, Dr. Titus Attending Provider Unav ailable Edelmira, Gallo Attending Unavailable Puga, Michael Primary Care Unavailable Puga, Michael Primary Care Unavailable Puga, Michael Attending Unavailable Puga, Michael Referring Unavailable Edelmira, [place] Attending Unavailable Edelmira, [place] Referring Unavailable Puga, Michael Primary Care Unavailable Edelmira, [place] Attending Unavailable Edelmira, Gallo Referring Unavailable Puga, [...] Attending Unavailable Jonny Vicente Consulting Unavailable Edelmira, [place] Referring Unavailable Puga, Michael Attending Unavailable Puga, Michael Primary Care Unavailable Anabel Alexander Attending Unavail able Puga, Michael Referring Unavailable Puga, Michael Primary Care Unavailable Puga, Michael Primary Care Unavailable Puga, Michael Attending Unavailable Puga, Michael Referring Unavailable Edelmira, Gallo Attending Unavailable Puga, Michael Primary Care Unavailable Edelmira, [place] Referring Unavailable Edelmira, [place] Attending Unavailable Puga, Michael Primary Care Unavailable Edelmira, Gallo Attending Unavailable Edelmira, [place] Referring Unavailable Puga, Michael Primary Care Unavailable Anabel Alexander Attending Unavail able Puga, Michael Primary Care Unavailable Puga, Michael Referring Unavailable Edelmira, [place] Attending Unavailable Edelmira, Gallo Referring Unavailable Puga, Michael Primary Care Unavailable Edelmira, Gallo Attending Unavailable Edelmira, [place] Referring Unavailable Puga, Michael Primary Care Unavailable Edelmira, Gallo Attending Unavailable Puga, Michael Primary Care Unavailable Anabel Alexander Referring Unavail able Russel Baum Attending Unavailable Puga, Michael Primary Care Unavailable Puga, Michael Primary Care Unavailable Kristal Watkins NP Attending Unavailable Ed[place]ira, [place] Attending Unavailable Puga, Michael Primary Care Unavailable [...] Acetaminophen / HYDROcodone Drug Allergy 5 Intolerance [facility] HMG-CoA Reductase Inhibitors (statins) (1 source) Pravastatin Drug Allergy 6 Other: See Comments [facility] Work Phone: Macrolides (antibiotic) (1 source) Azithromycin Drug Allergy 8 Intolerance [facility] Opioid Agonists (1 source) Meperidine Drug Allergy 1 Vomiting [facility] Penicillins (antibiotic) (1 source) Penicillin G Drug Allergy 1 [facility] Quinolones (antibiotic) (1 source) Ciprofloxacin Drug Allergy 9 Rash [facility] Sulfonamides (antibiotic) (1 source) Sulfonamides (Antibiotic) Drug Allergy 1 [facility] (6 sources) acetaminophen / HYDROcodone drug allergy 1 Nausea & vomiting [facility] Work Phone: [phone] (6 sources) Adrenergic Beta-Antagonists drug allergy 5 Fatigue [facility] Work Phone: [phone] (17 sources) lisinopril; Translations: [lisinopril] drug allergy 6 cough [facility] Work Phone: [phone] (7 sources) meperidine drug allergy 1 Nausea & Vomiting, Unknown [facility] Work Phone: [phone] (7 sources) penicillin drug allergy 1 Hives, Unknown [facility] Work Phone: [phone] (6 sources) Sulfonamides (Antibiotic) drug allergy 1 Hives [facility] Work Phone: (1 source) guaiFENesin / HYDROcodone Drug Allergy Unknown [facility] (1 source) Sulfonamides (Antibiotic) Unknown [facility] (20 sources) Acetaminophen / HYDROcodone; Translations: [HYDROCODONE-ACET AMINOPHEN] Drug Allergy 5 Intolerance [facility] Work Phone: (20 sources) Azithromycin; Translations: [AZITHROMYCIN] Drug Allergy 8 Intolerance [facility] Work Phone: (20 sources) Meperidine; Translations: [MEPERIDINE (PF)] Drug Allergy 1 Vomiting [facility] (20 sources) Morphinan opioid; Translations: [OPIOIDS - MORPHINE ANALOGUES] Propensity to adverse reactions to drug 1 Intolerance [facility] (20 sources) Penicillin G; Translations: [PENICILLIN G] Drug Allergy 1 [facility] (20 sources) Pethidine analog; Translations: [OPIOIDS-MEPERIDI NE AND RELATED] Propensity to adverse reactions 1 [facility] (20 sources) Pravastatin; Translations: [PRAVASTATIN SODIUM] Drug Allergy 6 Other: See Comments [facility] Work Phone: (20 sources) Sulfonamides (Antibiotic); Translations: [SULFA (SULFONAMIDE ANTIBIOTICS)] Propensity to adverse reactions 1 [facility] (20 sources) Ciprofloxacin; Translations: [CIPROFLOXACIN] Drug Allergy 9 Rash [facility] (10 sources) HYDROcodone Drug Allergy 2 Other [facility] (10 sources) Meperidine Drug Allergy 2 Vomiting [facility] (11 sources) Penicillins; Translations: [Penicillins] Allergy to substance 2 [place] (10 sources) Pravastatin Drug Allergy 2 Other [facility] Comment on above: LEG CRAMPS (11 sources) Beta-Blockers (Beta-Adrenergic Bloc; Translations: [Beta-Blockers (Beta-Adrenergic Bloc] Propensity to adverse reactions 2 Other [facility] Comment on above: FATIGUE (9 sources) Morphine Drug Allergy 4 Other [facility] Comment on above: sees things (9 sources) Sulfonamides (Antibiotic) Allergy to substance 4 Hives [facility] (1 source) Ciprofloxacin Drug Allergy 5 [facility] (1 source) HYDROcodone Drug Allergy 5 [facility] (1 source) Meperidine Drug Allergy 5 [facility] (1 source) Morphine Drug Allergy 5 [facility] (1 source) Pravastatin Drug Allergy 5 [facility] (1 source) Sulfonamides (Antibiotic) Drug allergy (disorder) 5 [facility] Rep[facility] Medications Current Medications Medication Drug Class(es) Dates Sig (Normalized) Sig (Original) [id number] 200 actuat albuterol 0.09 mg/actuat metered dose [...] daily 90 3 December 27, 2018 12[facility]am [facility] Start: 07-16-2016 End: 05-05-2017 take [...] Start: 05-24-2013 ASPIRIN 81 MG TABS ASPIRIN [id number] Anabel Horne PA-C Start: 05-24-2013 ASPIRIN 81 MG TABS ASPIRIN [id number] Anabel Horne PA-C Start: 04-07-2011 take 1 tablet by arpan th once daily ASPIRIN 325 MG TABS One tablet by mouth daily ASPIRIN [id number] Delisa Juárez RN Comment on above: Take [...] tablet by mouth three times daily GABAPENTIN [id number] Gallo Hickey MD hydrALAZINE hydrochloride 50 mg [...] on above: Take 1 capsule by mo [facility] twice daily for 5 days. omeprazole 20 [...] 10:47pm Start: 10-29-2020 take 1 capsule by [facility] once daily omeprazole (PRILOSEC) 20 mg [...] CPDR One tablet by mouth daily OMEPRAZOLE [id number] Gallo Hickey MD Start: 07-19-2013 End: 05-28-2015 take 1 tablet by mouth once daily PRILOSEC 20 MG CPDR One tablet by mouth daily OMEPRAZOLE [id number] Anabel Horne PA-C Comment on above: Take 1 capsule by [facility] once daily. PARoxetine hydrochloride 40 mg [...] to 6 hours as needed HYDROCODONE-ACETAMI NOPHEN [id number] Gallo Hickey MD amiodarone hydrochloride 200 mg [...] One tablet by mouth daily AMIODARONE HCL [id number] Delisa Juárez RN Start: 04-07-2011 AMIODARONE HCL 200 MG TABS 1 tablet twice a day for two weeks then 1 a day AMIODARONE HCL [id number] Gallo Hickey MD Comment on above: Take 200 mg by mouth once daily. amLODIPine 10 mg oral tablet (18 sources) Dihydropyridine [facility] Start: End: take 1 tablet by mouth once daily NORVASC 10 MG TABS One tablet by mouth daily AMLODIPINE BESYLATE [id number] Gallo Hickey MD apixaban 5 mg oral [...] Comment on above: Take 1 capsule by [facility] once daily. citalopram 20 mg oral tablet (6 sources) Serotonin Reuptake Inhibitor Start: 09-23-19 11 take 1 tablet by mouth once daily CELEXA 20 MG TABS One tablet by mouth daily CITALOPRAM HYDROBROMIDE [id number] Irma Strong clindamycin 300 mg oral capsule (12 sources) Lincosamide Antibacterial Start: 09-23-19 11 End: 05-18-19 13 CLINDAMYCIN HCL 300 MG CAPS 2 tablets by mouth 30-60 mins prior to procedure CLINDAMYCIN HCL 57788140235 Irma Strong 24 hr dilTIAZem hydrochloride 240 mg extended release oral capsule (20 sources) [facility] Start: 08-11-19 14 End: 05-15-19 25 take 1 capsule by mouth every twenty-four hours at bedtime Diltiazem Hcl 240 mg capsule,extended release 24hr Discontinued 240 mg PO AT BEDTIME 90 3 May 09, 2024 12:45pm May 15, 2024 12:23pm heart Start: 08-10-2013 take 1 capsule by [facility] once daily diltiazem CD (CARDIZEM CD) 240 mg 24 hr capsule Indications: Essential hypertension Take 1 capsule by mouth once daily. 0 10/25/2015 Active Start: 08-10-2013 DILT-XR 240 MG [id number] DILTIAZEM HCL [id number] Kristel Garcia RN Start: 08-10-2013 [facility] 240 MG [id number] One tablet by mouth daily DILTIAZEM HCL [id number] Gallo Hickey MD Start: 07-19-2013 take 1 tablet by arpan twice daily DILT-XR 120 MG [id number] One tablet by mouth twice daily DILTIAZEM HCL 62529941521 Anabel Horne PA-C Start: 07-19-2013 take 1 tablet by arpan twice daily DILT-XR 120 MG [id number] One tablet by mouth twice daily DILTIAZEM HCL [id number] Anabel Horne PA-C Start: 05-05-2011 take 1 tablet by arpan once daily DILT-XR 120 MG [id number] One tablet by mouth daily DILTIAZEM HCL [id number] Gallo Hickey MD Start: 05-05-2011 take 1 tablet by [facility] once daily DILT-XR 120 MG [id number] One tablet by mouth daily DILTIAZEM HCL [id number] Gallo Hickey MD Comment on above: Take 1 capsule by [facility] once daily. enalapril maleate 20 mg oral tablet (12 sources) Angiotensin Converting Enzyme Inhibitor Start: 1 End: 2 ENALAPRIL MALEATE 20 MG TABS 1/2 tablet daily ENALAPRIL MALEATE [id number] Gallo Hickey MD escitalopram 20 mg oral tablet (20 sources) Serotonin Reuptake Inhibitor Start: 4 End: 4 take 1 tablet by mouth once daily Escitalopram Oxalate 20 MG tablet Discontinued 20 mg PO DAILY May 13, 2016 1:00am August 27, 2017 7:58am [facility] Start: 05-24-2013 take 1 tablet by [facility] once daily ESCITALOPRAM OXALATE 10 MG TABS One tablet by mouth daily ESCITALOPRAM OXALATE [id number] JAMAL KatzC Comment on above: Take 1 tablet by [facility] once daily. ferrous sulfate 325 mg oral [...] tablet by mouth twice daily FLECAINIDE ACETATE [id number] Gallo Hickey MD 120 actuat fluticasone propionate [...] TABS One tablet by mouth daily FUROSEMIDE [id number] Irma Strong 12 hr guaiFENesin 600 mg [...] on above: Take 2 capsules by m [facility] once daily. Take 1 capsule by mo [facility] once daily. ibuprofen 800 mg oral tablet (18 sources) Nonsteroidal Anti-inflammatory Drug Start: 1 End: 6 take 1 tablet by mouth every four hours as needed IBUPROFEN 800 MG TABS 1 tablet by mouth Q4H as needed IBUPROFEN [id number] Anabel Horne PA-C lisinopril 10 mg oral tablet (6 sources) Angiotensin Converting Enzyme Inhibitor Start: 5 take 1 tablet by mouth once daily LISINOPRIL 10 MG TABS One tablet by mouth daily LISINOPRIL [id number] Anabel Horne PA-C losartan potassium 100 mg [...] One tablet by mouth daily LOSARTAN POTASSIUM [id number] Anabel Horne PA-C Start: 04-04-2015 End: 06-26-2015 take 1 tablet by mouth twice daily LOSARTAN POTASSIUM 50 MG TABS One tablet by mouth twice daily LOSARTAN POTASSIUM [id number] Kristel Garcia RN Comment on above: Take [...] One tablet by mouth daily MULTIPLE VITAMIN [id number] Gallo Hickey MD Start: 05-18-2012 End: 05-24-2013 take 1 tablet by mouth once daily MULTIVITAMINS TABS One tablet by mouth daily MULTIPLE VITAMIN [id number] Anabel Horne PA-C MULTIPLE VITAMIN (2 sources) Start: 05-18-2012 take 1 tablet by mouth once daily MULTIVITAMINS TABS One tablet by mouth daily MULTIPLE VITAMIN 76152137292 Gallo Hickey MD Start: 05-18-2012 End: 05-24-2013 take 1 tablet by mouth once daily MULTIVITAMINS TABS One tablet by mouth daily MULTIPLE VITAMIN [id number] Anabel Horne PA-C nystatin 100 unt/mg topical [...] by mouth daily OMEGA-3 FATTY ACIDS CPDR 47457872089 Irma Strong Start: 09-22-2010 End: 05-18-2012 take 1 tablet by mouth once daily OMEGA 3 CPDR One tablet by mouth daily OMEGA-3 FATTY ACIDS CPDR 65143845207 Gallo Hickey MD OMEGA-3 FATTY ACIDS CPDR (2 sources) Start: 09-22-2010 take 1 tablet by mouth once daily OMEGA 3 CPDR One tablet by mouth daily OMEGA-3 FATTY ACIDS CPDR 80889637011 Irma Strong Start: 09-22-2010 End: 05-18-2012 take 1 tablet by mouth once daily OMEGA 3 CPDR One tablet by mouth daily OMEGA-3 FATTY ACIDS CPDR 96899927697 Gallo Hickey MD polyethylene glycol 3350 38815 mg powder for oral solution (10 sources) [...] mg, One tablet by mouth daily CYANOCOBALAMIN [id number] Delisa Juárez RN take 1 tablet by arpan th once daily cyanocobalamin (VITAMIN B-12) 1,000 mcg tab Take 1,000 mcg by mouth once daily. Active B COMPLEX VITAMINS (20 sources) Start: 09-22-2010 take 1 tablet by mouth once daily VITAMIN B COMPLEX TABS One tablet by mouth daily B COMPLEX VITAMINS 98004728939 Irma Strong End: 03-13-2024 vitamin B complex [...] (4 sources) Drug therapy finding; Translations: [Other usp (current) drug therapy] 06-01-2024 Episodic Other aftercare (12 sources) Long-term current use of amiodarone; Translations: [Other terminal supervisor (current) drug therapy] 06-01-2024 Episodic Other circulatory [...] 05-11-2024 Episodic Other aftercare (1 source) Other usp (current) drug therapy; Translations: [Other terminal supervisor (current) drug therapy] Onset: 07-06-2024 Episodic Other [...] 12-03-2024 Anion gap [Moles/Vol] 11 mmol/L 5-15 [facility] BUN/creatinine ratioOrdered By: Waleska Phillips on 12-03-2024 Urea nitrogen/Creatinine [Mass ratio] 30.7 mg/mg High 10-20 [facility] Carbon dioxide, total [Moles /volume] in Central venous bloodOrdered By: Waleska Phillips on 12-03-2024 CO2 [Moles/Vol] 23.4 mmol/L 21.0-32.0 [facility] Chloride assayOrdered By: Nida Phillips on 12-03-2024 Chloride [Moles/Vol] 94 mmol/L Low 98-108 [facility] Erythrocyte distribution wid th ratioOrdered By: Waleska Phillips on 12-03-2024 Erythrocyte distribution width (RBC) [Ratio] 14.7 % High 11.6-14.6 [facility] Erythrocyte distribution wid th standard deviationOrdered By: Waleska Phillips on 12-03-2024 Erythrocyte distribution width (RBC) [Ratio] 47.8 fl High 35.1-43.9 [facility] Glomerular filtration rate ( GFR) estimation/1.73 sq m using serum, plasma, or whole bOrdered By: Waleska Phillips on 12-03-2024 GFR/1.73 sq M.predicted among non-blacks MDRD (S/P/Bld) [Vol rate/Area] 55 mL/min/{1.73_m2} Low >60 [facility] Comment on above: mL/min/1.73m2 CKD-EP I Creatinine Equation (2020) Hematocrit Auto (Bld) [Volum e fraction]Ordered By: Waleska Phillips on 12-03-2024 Hematocrit (Bld) [Volume fraction] 31.2 % Low 37-47 [facility] Hemoglobin measurementOrdere d By: Waleska Phillips on 12-03-2024 Hemoglobin (Bld) [Mass/Vol] 10.6 g/dL Low 12.0-15.0 [facility] MCV (mean corpuscular volume ) determinationOrdered By: Waleska Phillips on 12-03-2024 MCV (RBC) [Entitic vol] 89.4 fL 81-99 [facility] Mean corpuscular hemoglobin (MCH) determinationOrdered By: Waleska Phillips on 12-03-2024 MCH (RBC) [Entitic mass] 30.4 pg 27.0-32.0 [facility] Mean corpuscular hemoglobin concentration (MCHC) determinationOrdered By: Waleska Phillips on 12-03-2024 MCHC (RBC) [Mass/Vol] 34.0 g/dL 32-36 [facility] Mean platelet volume determi nationOrdered By: Waleska Phillips on 12-03-2024 Platelet mean volume (Bld) [Entitic vol] 10.3 fL 6.2-12.0 [facility] Platelet countOrdered By: Nida Phillips on 12-03-2024 Platelets (Bld) [#/Vol] 202 10*3/uL 150-450 [facility] Potassium measurement (mass/ volume)Ordered By: Waleska Phillips on 12-03-2024 Potassium (Unsp spec) [Mass/Vol] 4.7 mmol/L 3.3-5.1 [facility] RBC Auto (Bld) [#/Vol]Ordere d By: Waleska Phillips on 12-03-2024 RBC (Bld) [#/Vol] 3.49 10*6/uL Low 4.2-5.[address] [facility] Serum creatinine measurement (mass/volume)Ordered By: Waleska Phillips on 12-03-2024 Creatinine [Mass/Vol] 1.02 mg/dL 0.70-1.20 [facility] Serum glucose measurement (m ass/volume)Ordered By: Waleska Phillips on 12-03-2024 Glucose [Mass/Vol] 111 mg/dL High 70-99 [facility] Serum or plasma calcium julee urement (mass/volume)Ordered By: Waleska Phillips on 12-03-2024 Calcium [Mass/Vol] 8.7 mg/dL 7.6-11.0 [facility] Serum or plasma urea nitroge n measurement (mass/volume)Ordered By: Waleska Phillips on 12-03-2024 Urea nitrogen [Mass/Vol] 31 mg/dL High 4-19 [facility] Sodium levelOrdered By: Andi Phillips on 12-03-2024 Sodium [Moles/Vol] 127 mmol/L Low 133-145 [facility] White blood cell (WBC) count Ordered By: Waleska Phillips on 12-03-2024 WBC (Bld) [#/Vol] 9.8 10*3/uL 4.4-11.0 [facility] Absolute lymphocyte countOrd ered By: Waleska Phillips on 12-02-2024 Lymphocytes Auto (Unsp spec) [#/Vol] 1.09 10*3/uL 0.83-4.51 [facility] Absolute neutrophil countOrd ered By: Waleska Phillips on 12-02-2024 Neutrophils (Bld) [#/Vol] 7.1 10*3/uL 2.0-7.7 [facility] Automated lymphocyte count a s percentage of total leukocytesOrdered By: Waleska Phillips on 12-02-2024 Lymphocytes/100 WBC Auto (Unsp spec) 11.2 % Low 19-41 [facility] Basophil percentageOrdered B y: Waleska Phillips on 12-02-2024 Basophils/100 WBC (Bld) 0.6 % 0-1 [facility] Eosinophil percentageOrdered By: Waleska Phillips on 12-02-2024 Eosinophils/100 WBC (Bld) 3.1 % 0-5 [facility] Immature granulocytes/100 WB C Auto (Bld)Ordered By: Waleska Phillips on 12-02-2024 Immature granulocytes/100 WBC (Bld) 0.700 % 0.0-0.9 [facility] Comment on above: IG% - Immature Granu locytes (promyelocytes, myelocytes and metamyelocytes) > 1% indicates that a LEFT SHIFT is Present. Monocyte percentageOrdered B y: Waleska Phillips on 12-02-2024 Monocytes/100 WBC (Bld) 11.7 % High 0-10 [facility] Neutrophil percentageOrdered By: Waleska Phillips on 12-02-2024 Neutrophils/100 WBC (Bld) 72.7 % High 47-70 [facility] Nucleated red blood cell per centageOrdered By: Waleska Phillips on 12-02-2024 Nucleated RBC/100 WBC (Bld) [Ratio] 0 % 0-5 [facility] Basic Metabolic Profile (BMP )on 12-01-2024 BUN/CRE 26.4 RATIO High 10-20 [facility] Comment on above: Performed By: #### L 500.2500, L100.0100 ####[facility] [address] [place], [address] Calcium [Mass/Vol] 8.4 mg/dL Normal 7.6-11.0 [facility] Comment on above: Performed By: #### L 500.2500, L100.0100 ####[facility] [address] [place], [address] Chloride [Moles/Vol] 96 mmol/L Low 98-108 [facility] Comment on above: Performed By: #### L 500.2500, L100.0100 ####[facility] [address] [place], [address] CO2 [Moles/Vol] 26.3 mmol/L Normal 21.0-32.0 [facility] Comment on above: Performed By: #### L 500.2500, L100.0100 ####[facility] [address] [place], [address] Creatinine [Mass/Vol] 1.23 mg/dL High 0.70-1.20 [facility] Comment on above: Performed By: #### L 500.2500, L100.0100 ####[facility] [address] [place], [address] ECRCL 41.95 ml/min Low 50-250 [facility] Comment on above: Performed By: #### L 500.2500, L100.0100 ####[facility] [address] [place], [address] GAP 9 Normal 5-15 [facility] Comment on above: Performed By: #### L 500.2500, L100.0100 ####[facility] [address] [place], [address] GFR/1.73 sq M.predicted among non-blacks MDRD (S/P/Bld) [Vol rate/Area] 44 mL/min/{1.73_m2} Low >60 [facility] Comment on above: Result Comment: mL/m in/1.73m2 CKD-EPI Creatinine Equation (2020) Performed By: #### L 500.2500, L100.0100 ####[facility] [address] [place], [address] Glucose [Mass/Vol] 110 mg/dL High 70-99 [facility] Comment on above: Performed By: #### L 500.2500, L100.0100 ####[facility] [address] [place], [address] Potassium [Moles/Vol] 4.7 mmol/L Normal 3.3-5.1 [facility] Comment on above: Performed By: #### L 500.2500, L100.0100 ####[facility] [address] [place], [address] Sodium [Moles/Vol] 131 mmol/L Low 133-145 [facility] Comment on above: Performed By: #### L 500.2500, L100.0100 ####[facility] [address] [place], [address] Urea nitrogen [Mass/Vol] 33 mg/dL High 4-19 [facility] Comment on above: Performed By: #### L 500.2500, L100.0100 ####[facility] [address] [place], [address] CBC W/Diff, Automatedon 08-0 Absolute Lymph 1.16 X10 3/uL Normal 0.83-4.51 [facility] Comment on above: Performed By: #### L 500.2500, L100.0100 ####[facility] [address] [place], [address] Absolute Neut 6.3 X10 3/uL Normal 2.0-7.7 [facility] Comment on above: Performed By: #### L 500.2500, L100.0100 ####[facility] [address] [place], [address] Basophils/100 WBC (Bld) 0.6 % Normal 0-1 [facility] Comment on above: Performed By: #### L 500.2500, L100.0100 ####[facility] [address] [place], [address] Eosinophils/100 WBC (Bld) 2.9 % Normal 0-5 [facility] Comment on above: Performed By: #### L 500.2500, L100.0100 ####[facility] [address] [place], [address] Erythrocyte distribution width (RBC) [Ratio] 14.8 % High 11.6-14.6 [facility] Comment on above: Performed By: #### L 500.2500, L100.0100 ####[facility] [address] [place], [address] Hematocrit (Bld) [Volume fraction] 31.7 % Low 37-47 [facility] Comment on above: Performed By: #### L 500.2500, L100.0100 ####[facility] [address] [place], [address] Hemoglobin (Bld) [Mass/Vol] 10.5 g/dL Low 12.0-15.0 [facility] Comment on above: Performed By: #### L 500.2500, L100.0100 ####[facility] [address] [place], [address] IG% 0.300 Normal 0.0-0.9 [facility] Comment on above: Result Comment: IG% - Immature Granulocytes (promyelocytes, myelocytes andmetamyelocytes) > 1% indicates that a LEFT SHIFT is Present. Performed By: #### L 500.2500, L100.0100 ####[facility] [address] [place], [address] Lymphocytes/100 WBC (Bld) 13.0 % Low 19-41 [facility] Comment on above: Performed By: #### L 500.2500, L100.0100 ####[facility] [address] [place], [address] MCH (RBC) [Entitic mass] 29.9 pg Normal 27.0-32.0 [facility] Comment on above: Performed By: #### L 500.2500, L100.0100 ####[facility] [address] [place], [address] MCHC (RBC) [Mass/Vol] 33.1 g/dL Normal 32-36 [facility] Comment on above: Performed By: #### L 500.2500, L100.0100 ####[facility] [address] [place], [address] MCV (RBC) [Entitic vol] 90.3 fL Normal 81-99 [facility] Comment on above: Performed By: #### L 500.2500, L100.0100 ####[facility] [address] [place], [address] Monocytes/100 WBC (Bld) 12.3 % High 0-10 [facility] Comment on above: Performed By: #### L 500.2500, L100.0100 ####[facility] [address] [place], [address] Neutrophils/100 WBC (Bld) 70.9 % High 47-70 [facility] Comment on above: Performed By: #### L 500.2500, L100.0100 ####[facility] [address] [place], [address] Nucleated RBC (Bld) [#/Vol] 0 10*3/uL Normal 0-5 [facility] Comment on above: Performed By: #### L 500.2500, L100.0100 ####[facility] [address] [place], [address] Platelet mean volume (Bld) [Entitic vol] 10.1 fL Normal 6.2-12.0 [facility] Comment on above: Performed By: #### L 500.2500, L100.0100 ####[facility] [address] [place], [address] Platelets (Bld) [#/Vol] 196 10*3/uL Normal 150-450 [facility] Comment on above: Performed By: #### L 500.2500, L100.0100 ####[facility] [address] [place], [address] RBC (Bld) [#/Vol] 3.51 10*6/uL Low 4.2-5.[address] [facility] Comment on above: Performed By: #### L 500.2500, L100.0100 ####[facility] [address] [place], [address] RDW SD 48.8 fl High 35.1-43.9 [facility] Comment on above: Performed By: #### L 500.2500, L100.0100 ####[facility] [address] [place], [address] WBC (Bld) [#/Vol] 8.9 10*3/uL Normal 4.4-11.0 [facility] Comment on above: Performed By: #### L 500.2500, L100.0100 ####[facility] [address] [place], [address] MR/CON.PCM.NEon 12-01-2024 MR/CON.PCM.NE Normal [facility] Amphetamine detection with 1 000 ng/mL as cutoffOrdered By: Tacho Goncalves on 11-30-2024 Amphetamines Screen method >1000 ng/mL Ql (U) Negative < 200 ng/mL [facility] Bilirubin, totalOrdered By: Tacho Goncalves on 11-30-2024 Bilirubin [Mass/Vol] 0.50 mg/dL 0.00-1.30 [facility] Brain/Head without Contrasto n 11-30-2024 Brain/Head without Contrast Normal [facility] CBC W/Diff, Automatedon 11-02 Absolute Lymph 0.89 X10 3/uL Normal 0.83-4.51 [facility] Comment on above: Performed By: #### L 501.2300, L500.4100, L100.0100, L500.4050 ####[facility] [address] [place], [address] Absolute Neut 6.9 X10 3/uL Normal 2.0-7.7 [facility] Comment on above: Performed By: #### L 501.2300, L500.4100, L100.0100, L500.4050 ####[facility] [address] [place], [address] Basophils/100 WBC (Bld) 0.5 % Normal 0-1 [facility] Comment on above: Performed By: #### L 501.2300, L500.4100, L100.0100, L500.4050 ####[facility] [address] [place], [address] Eosinophils/100 WBC (Bld) 2.8 % Normal 0-5 [facility] Comment on above: Performed By: #### L 501.2300, L500.4100, L100.0100, L500.4050 ####[facility] [address] [place], [address] Erythrocyte distribution width (RBC) [Ratio] 14.6 % Normal 11.6-14.6 [facility] Comment on above: Performed By: #### L 501.2300, L500.4100, L100.0100, L500.4050 ####[facility] [address] [place], [address] Hematocrit (Bld) [Volume fraction] 33.8 % Low 37-47 [facility] Comment on above: Performed By: #### L 501.2300, L500.4100, L100.0100, L500.4050 ####[facility] [address] [place], [address] Hemoglobin (Bld) [Mass/Vol] 11.2 g/dL Low 12.0-15.0 [facility] Comment on above: Performed By: #### L 501.2300, L500.4100, L100.0100, L500.4050 ####[facility] [address] [place], [address] IG% 0.700 Normal 0.0-0.9 [facility] Comment on above: Result Comment: IG% - Immature Granulocytes (promyelocytes, myelocytes andmetamyelocytes) > 1% indicates that a LEFT SHIFT is Present. Performed By: #### L 501.2300, L500.4100, L100.0100, L500.4050 ####[facility] [address] [place], [address] Lymphocytes/100 WBC (Bld) 9.5 % Low 19-41 [facility] Comment on above: Performed By: #### L 501.2300, L500.4100, L100.0100, L500.4050 ####[facility] [address] [place], [address] MCH (RBC) [Entitic mass] 30.1 pg Normal 27.0-32.0 [facility] Comment on above: Performed By: #### L 501.2300, L500.4100, L100.0100, L500.4050 ####[facility] [address] [place], [address] MCHC (RBC) [Mass/Vol] 33.1 g/dL Normal 32-36 [facility] Comment on above: Performed By: #### L 501.2300, L500.4100, L100.0100, L500.4050 ####[facility] [address] [place], [address] MCV (RBC) [Entitic vol] 90.9 fL Normal 81-99 [facility] Comment on above: Performed By: #### L 501.2300, L500.4100, L100.0100, L500.4050 ####[facility] [address] [place], [address] Monocytes/100 WBC (Bld) 13.0 % High 0-10 [facility] Comment on above: Performed By: #### L 501.2300, L500.4100, L100.0100, L500.4050 ####[facility] [address] [place], [address] Neutrophils/100 WBC (Bld) 73.5 % High 47-70 [facility] Comment on above: Performed By: #### L 501.2300, L500.4100, L100.0100, L500.4050 ####[facility] [address] [place], [address] Nucleated RBC (Bld) [#/Vol] 0 10*3/uL Normal 0-5 [facility] Comment on above: Performed By: #### L 501.2300, L500.4100, L100.0100, L500.4050 ####[facility] [address] [place], [address] Platelet mean volume (Bld) [Entitic vol] 9.7 fL Normal 6.2-12.0 [facility] Comment on above: Performed By: #### L 501.2300, L500.4100, L100.0100, L500.4050 ####[facility] [address] [place], [address] Platelets (Bld) [#/Vol] 212 10*3/uL Normal 150-450 [facility] Comment on above: Performed By: #### L 501.2300, L500.4100, L100.0100, L500.4050 ####[facility] [address] [place], [address] RBC (Bld) [#/Vol] 3.72 10*6/uL Low 4.2-5.[address] [facility] Comment on above: Performed By: #### L 501.2300, L500.4100, L100.0100, L500.4050 ####[facility] [address] [place], [address] RDW SD 48.4 fl High 35.1-43.9 [facility] Comment on above: Performed By: #### L 501.2300, L500.4100, L100.0100, L500.4050 ####[facility] [address] [place], [address] WBC (Bld) [#/Vol] 9.4 10*3/uL Normal 4.4-11.0 [facility] Comment on above: Performed By: #### L 501.2300, L500.4100, L100.0100, L500.4050 ####[facility] [address] [place], [address] Calculated very low density lipoprotein (VLDL) cholesterol measurementOrdered By: Tacho Goncalves on 11-30-2024 Calculated very low density lipoprotein (VLDL) cholesterol measurement 18 mg/dL 5-40 [facility] Comprehensive Metabolic Prof ilon 11-30-2024 Albumin [Mass/Vol] 3.6 g/dL Normal 3.4-4.8 [facility] Comment on above: Performed By: #### L 501.2300, L500.4100, L100.0100, L500.4050 ####[facility] [address] [place], [address] Albumin/Globulin [Mass ratio] 1.6 {ratio} Normal 0.9-2.4 [facility] Comment on above: Performed By: #### L 501.2300, L500.4100, L100.0100, L500.4050 ####[facility] [address] [place], [address] ALK PHOS 58 U/L Normal 35-104 [facility] Comment on above: Performed By: #### L 501.2300, L500.4100, L100.0100, L500.4050 ####[facility] [address] [place], [address] ALT [Catalytic activity/Vol] 36 U/L High <=34 [facility] Comment on above: Performed By: #### L 501.2300, L500.4100, L100.0100, L500.4050 ####[facility] [address] [place], [address] AST [Catalytic activity/Vol] 25 U/L Normal <=31 [facility] Comment on above: Performed By: #### L 501.2300, L500.4100, L100.0100, L500.4050 ####[facility] [address] [place], [address] Bilirubin [Mass/Vol] 0.50 mg/dL Normal 0.00-1.30 [facility] Comment on above: Performed By: #### L 501.2300, L500.4100, L100.0100, L500.4050 ####[facility] [address] [place], [address] BUN/CRE 27.8 RATIO High 10-20 [facility] Comment on above: Performed By: #### L 501.2300, L500.4100, L100.0100, L500.4050 ####[facility] [address] [place], [address] Calcium [Mass/Vol] 8.9 mg/dL Normal 7.6-11.0 [facility] Comment on above: Performed By: #### L 501.2300, L500.4100, L100.0100, L500.4050 ####[facility] [address] [place], [address] Chloride [Moles/Vol] 99 mmol/L Normal 98-108 [facility] Comment on above: Performed By: #### L 501.2300, L500.4100, L100.0100, L500.4050 ####[facility] [address] [place], [address] CO2 [Moles/Vol] 26.1 mmol/L Normal 21.0-32.0 [facility] Comment on above: Performed By: #### L 501.2300, L500.4100, L100.0100, L500.4050 ####[facility] [address] [place], [address] Creatinine [Mass/Vol] 1.25 mg/dL High 0.70-1.20 [facility] Comment on above: Performed By: #### L 501.2300, L500.4100, L100.0100, L500.4050 ####[facility] [address] [place], [address] ECRCL 41.49 ml/min Low 50-250 [facility] Comment on above: Performed By: #### L 501.2300, L500.4100, L100.0100, L500.4050 ####[facility] [address] [place], [address] GAP 10 Normal 5-15 [facility] Comment on above: Performed By: #### L 501.2300, L500.4100, L100.0100, L500.4050 ####[facility] [address] [place], [address] GFR/1.73 sq M.predicted among non-blacks MDRD (S/P/Bld) [Vol rate/Area] 43 mL/min/{1.73_m2} Low >60 [facility] Comment on above: Result Comment: mL/m in/1.73m2 CKD-EPI Creatinine Equation (2020) Performed By: #### L 501.2300, L500.4100, L100.0100, L500.4050 ####[facility] [address] [place], [address] Globulin (S) [Mass/Vol] 2.3 g/dL Normal 2.2-4.2 [facility] Comment on above: Performed By: #### L 501.2300, L500.4100, L100.0100, L500.4050 ####[facility] [address] [place], [address] Glucose [Mass/Vol] 111 mg/dL High 70-99 [facility] Comment on above: Performed By: #### L 501.2300, L500.4100, L100.0100, L500.4050 ####[facility] [address] [place], [address] Potassium [Moles/Vol] 4.7 mmol/L Normal 3.3-5.1 [facility] Comment on above: Performed By: #### L 501.2300, L500.4100, L100.0100, L500.4050 ####[facility] [address] [place], [address] Sodium [Moles/Vol] 136 mmol/L Normal 133-145 [facility] Comment on above: Performed By: #### L 501.2300, L500.4100, L100.0100, L500.4050 ####[facility] [address] [place], [address] T PROT 5.9 g/dL Normal 5.9-8.4 [facility] Comment on above: Performed By: #### L 501.2300, L500.4100, L100.0100, L500.4050 ####[facility] [address] [place], [address] Urea nitrogen [Mass/Vol] 35 mg/dL High 4-19 [facility] Comment on above: Performed By: #### L 501.2300, L500.4100, L100.0100, L500.4050 ####[facility] [address] [place], [address] Echocardiogram study reportO rdered By: Gallo Hickey on 11-30-2024 Study report [facility] [address] [place] [address] Echo Complete 11/30/24 1044 MR#: [id number] Acct: [id number] Name: MICHAEL MEIER Rep #:[id number] 5 : 1940 84 From: Gallo Souza [...] Date Dictated: 11/30/24 1044 Date Transcribed: 11/30/241654 Make Up Artist: Signed [facility] Work Phone: Folate [Mass/volume] in Seru m or PlasmaOrdered By: Tacho Goncalves on 11-30-2024 Folate [Mass/Vol] 26.00 ng/mL 4.60-34.80 [facility] Folates,Serum (Folic Acid)on 11-30-2024 FOLATES,SERUM 26.00 ng/mL Normal 4.60-34.80 [facility] Comment on above: Order Comment: N Performed By: #### L 506.0200 ####[facility] [address] [place], [address] LDL calc ser/plasOrdered By: Tacho Goncalves on 11-30-2024 Cholesterol in LDL [Mass/Vol] 53 mg/dL [facility] Comment on above: Zfdmydwrzz=716-216 m g/dL & Higher Qdts=225 mg/dL or greaterFriedwald Equation for LDL-C Laboratory - Chemistry and C hemistry - challengeOrdered By: Tacho Goncalves on 11-30-2024 AST [Catalytic activity/Vol] 25 U/L <32 [facility] Lipid Profileon 11-30-2024 CHOL:HDL 1.91 Normal [facility] Comment on above: Performed By: #### L 501.2300, L500.4100, L100.0100, L500.4050 ####[facility] [address] [place], [place], [id number] Cholesterol [Mass/Vol] 148 mg/dL Normal <=200 [facility] Comment on above: Result Comment: Chol esterol level, Desirable <200 mg/dLBorderline high cholesterol 200-239 mg/dLHigh cholesterol >=240 mg/dLRecommendations of the NCEP Adult Treatment Panel for thefollowing risk-cutoff thresholds for the [place] Americanpulation. Performed By: #### L 501.2300, L500.4100, L100.0100, L500.4050 ####[facility] [address] [place], [address] Cholesterol in HDL [Mass/Vol] 78 mg/dL Normal [facility] Comment on above: Result Comment: Nathalie onal Cholesterol Education Program (NCEP) guidelines:<40 mg/dL: Low HDL-cholesterol (major risk factor for CHD)>= 60 mg/dL: High HDL-cholesterol (negative risk factor forCHD)HDL-cholesterol is affected by a number of factors, e.g.smoking, exercise, hormones, sex and age. Performed By: #### L 501.2300, L500.4100, L100.0100, L500.4050 ####[facility] [address] [place], [address] Cholesterol in LDL [Mass/Vol] 53 mg/dL Normal [facility] Comment on above: Result Comment: Bord kpmkae=144-698 mg/dL Higher Cznh=397 mg/dL or greaterFriedwald Equation for LDL-C Performed By: #### L 501.2300, L500.4100, L100.0100, L500.4050 ####[facility] [address] [place], [address] Cholesterol in VLDL [Mass/Vol] 18 mg/dL Normal 5-40 [facility] Comment on above: Performed By: #### L 501.2300, L500.4100, L100.0100, L500.4050 ####[facility] [address] [place], [address] Triglyceride [Mass/Vol] 88 mg/dL Normal [facility] Comment on above: Result Comment: The drugs N-Acetylcysteine and Metamizole may falselydepress this assay.Normal range: <150 mg/dLBorderline High: 150-199 mg/dLHigh: 200-499 mg/dLVery High: >500 mg/dL Performed By: #### L 501.2300, L500.4100, L100.0100, L500.4050 ####[facility] [address] [place], [place], [address] No Panel InformationOrdered By: Tacho Goncalves on 11-30-2024 Urine Buprenorphine Qualitative Negative < 200 ng/mL [facility] Urine Oxycodone Screen Negative < 100 ng/mL [facility] Phosphoruson 11-30-2024 Phosphate [Mass/Vol] 3.8 mg/dL Normal 2.7-4.5 [facility] Comment on above: Performed By: #### L 501.2300, L500.4100, L100.0100, L500.4050 ####[facility] [address] [place], [place], [address] Quantitative urine opiates m easurementOrdered By: Tacho Goncalves on 11-30-2024 Opiates Ql (U) Negative < 300 ng/mL [facility] Screening total cholesterol/ high density lipoprotein (HDL) cholesterol ratioOrdered By: Tacho Goncalves on 11-30-2024 Cholesterol.total/Chol esterol in HDL [Mass ratio] 1.91 {ratio} [facility] Screening urine fentanyl theresa surementOrdered By: Tacho Goncalves on 11-30-2024 fentaNYL Screen Ql (U) Negative [facility] Serum globulin measurementOr dered By: Tacho Goncalves on 11-30-2024 Globulin (S) [Mass/Vol] 2.3 g/dL 2.2-4.2 [facility] Serum or plasma alanine sprague otransferase (ALT) measurementOrdered By: Tacho Goncalves on 11-30-2024 ALT [Catalytic activity/Vol] 36 U/L High <35 [facility] Serum or plasma albumin julee urement (mass/volume)Ordered By: Tacho Goncalves on 11-30-2024 Albumin [Mass/Vol] 3.6 g/dL 3.4-4.8 [facility] Serum or plasma albumin/glob ulin mass ratioOrdered By: Tacho Goncalves on 11-30-2024 Albumin/Globulin [Mass ratio] 1.6 {ratio} 0.9-2.4 [facility] Serum or plasma alkaline rachel sphatase measurementOrdered By: Tacho Goncalves on 11-30-2024 ALP [Catalytic activity/Vol] 58 U/L 35-104 [facility] Serum or plasma cholesterol in HDL measurement (mass/volume)Ordered By: Tacho Goncalves on 11-30-2024 Cholesterol in HDL [Mass/Vol] 78 mg/dL >40 [facility] Comment on above: National Cholesterol Education Program (NCEP) guidelines:<40 mg/dL: Low HDL-cholesterol (major risk factor for CHD)>= 60 mg/dL: High HDL-cholesterol (negative risk factor for CHD)HDL-cholesterol is affected by a number of factors, e.g. smoking, exercise, hormones, sex and age. Serum or plasma cholesterol measurement (mass/volume)Ordered By: Tacho Goncalves on 11-30-2024 Cholesterol [Mass/Vol] 148 mg/dL <201 [facility] Comment on above: Cholesterol level, D esirable <200 mg/dLBorderline high cholesterol 200-239 mg/dLHigh cholesterol >=240 mg/dLRecommendations of the NCEP Adult Treatment Panel for the following risk-cutoff thresholds for the [place] population. Total proteinOrdered By: Richard Goncalves on 11-30-2024 Protein [Mass/Vol] 5.9 g/dL 5.9-8.4 [facility] Triglycerides measurementOrd ered By: Tacho Goncalves on 11-30-2024 Triglyceride [Mass/Vol] 88 mg/dL <199 [facility] Comment on above: The drugs N-Acetylcy steine and Metamizole may falsely depress this assay. Normal range: <150 mg/dLBorderline High: 150-199 mg/dLHigh: 200-499 mg/dLVery High: >500 mg/dL Urine Drug Screen (VISTA)on 11-30-2024 AMPHETAMINES Negative Normal <1000 ng/mL [facility] Comment on above: Order Comment: NEEDI NG A SAMPLE. HEB 11-30-24UNK Performed By: #### L 501.9985, L501.9520, L501.9100, L501.5200, L505.5000 ####[facility] [address] [place], [place], [address] BARBITIURATES Negative Normal < 200 ng/mL [facility] Comment on above: Order Comment: NEEDI NG A SAMPLE. HEB 11-30-24UNK Performed By: #### L 501.9985, L501.9520, L501.9100, L501.5200, L505.5000 ####[facility] [address] [place], [address] BENZODIAZIPINE Positive Normal < 200 ng/mL [facility] Comment on above: Order Comment: NEEDI NG A SAMPLE. HEB 11-30-24 Result Comment: If c onfirmation testing is needed, a separate order will berequired to send out testing to the reference laboratory. Performed By: #### L 501.9985, L501.9520, L501.9100, L501.5200, L505.5000 ####[facility] [address] [place], [place], [address] BUP Ur Drug Scr Negative Normal < 200 ng/mL [facility] Comment on above: Order Comment: NEEDI NG A SAMPLE. HEB 11-30-24UNK Performed By: #### L 501.9985, L501.9520, L501.9100, L501.5200, L505.5000 ####[facility] [address] [place], [place], [address] COCAINE Negative Normal < 300 ng/mL [facility] Comment on above: Order Comment: NEEDI NG A SAMPLE. HEB 11-30-24UNK Performed By: #### L 501.9985, L501.9520, L501.9100, L501.5200, L505.5000 ####[facility] [address] [place], [address] Fentanyl Negative Normal [facility] Comment on above: Order Comment: NEEDI NG A SAMPLE. HEB 11-30-24UNK Performed By: #### L 501.9985, L501.9520, L501.9100, L501.5200, L505.5000 ####[facility] [address] [place] [address] METHADONE Negative Normal < 300 ng/mL [facility] Comment on above: Order Comment: NEEDI NG A SAMPLE. HEB 11-30-24UNK Performed By: #### L 501.9985, L501.9520, L501.9100, L501.5200, L505.5000 ####[facility] [address] [place] [address] OPIATES Negative Normal < 300 ng/mL [facility] Comment on above: Order Comment: NEEDI NG A SAMPLE. HEB 11-30-24UNK Performed By: #### L 501.9985, L501.9520, L501.9100, L501.5200, L505.5000 ####[facility] [address] [place] [address] OXYCODONE Negative Normal < 100 ng/mL [facility] Comment on above: Order Comment: NEEDI NG A SAMPLE. HEB 11-30-24UNK Performed By: #### L 501.9985, L501.9520, L501.9100, L501.5200, L505.5000 ####[facility] [address] [place] [address] PCP Negative Normal < 25 ng/mL [facility] Comment on above: Order Comment: NEEDI NG A SAMPLE. HEB 11-30-24UNK Performed By: #### L 501.9985, L501.9520, L501.9100, L501.5200, L505.5000 ####[facility] [address] [place], [place], [address] THC Negative Normal < 50 ng/mL [facility] Comment on above: Order Comment: AGUSTIN Spence SAMPLE. HEB 11-30-24UNK Performed By: #### L 501.9985, L501.9520, L501.9100, L501.5200, L505.5000 ####[facility] [address] [place], [place], [id number] Urine benzodiazepine levelOr dered By: Tacho Goncalves on 11-30-2024 Benzodiazepines Ql (U) Positive < 200 ng/mL [facility] Comment on above: If confirmation test ing is needed, a separate order will be required to send out testing to the reference laboratory. Urine cocaine levelOrdered B y: Tacho Goncalves on 11-30-2024 Cocaine Ql (U) Negative < 300 ng/mL [facility] Urine niilj-1-ethrhhgriqruqc abinol (THC) measurementOrdered By: Tacho Goncalves on 11-30-2024 Cannabinoids Screen Ql (U) Negative < 50 ng/mL [facility] Urine phencyclidine (PCP) de tectionOrdered By: Tacho Goncalves on 11-30-2024 Phencyclidine Ql (U) Negative < 25 ng/mL [facility] Vitamin B12on 11-30-2024 Cobalamin (Vitamin B12) [Mass/Vol] 2838 pg/mL High 180-914 [facility] Comment on above: Performed By: #### L 503.0106 ####[facility] [address] [facility] [address] [place], [place], [phone] Absolute lymphocyte countOrd ered By: Virgil Tyler on 11-29-2024 Lymphocytes Auto (Unsp spec) [#/Vol] 1.10 10*3/uL 0.83-4.51 [facility] Absolute neutrophil countOrd ered By: Virgil Tyler on 11-29-2024 Neutrophils (Bld) [#/Vol] 7.0 10*3/uL 2.0-7.7 [facility] Alcohol, Blood (Medical)-Ser umon 11-29-2024 SERUM ETOH < 10.1 Normal <=10.0 [facility] Comment on above: Result Comment: This test is for medical purposes only. The legaldefinition of intoxication varies according to local law. Performed By: #### L 501.9985, L501.9520, L501.9100, L501.5200, L505.5000 ####[facility] [address] [place], [place], [address] Anion gap in Serum or Plasma Ordered By: Virgil Tyler on 11-29-2024 Anion gap [Moles/Vol] 12 mmol/L 5-15 [facility] Automated lymphocyte count a s percentage of total leukocytesOrdered By: Virgil Tyler on 11-29-2024 Lymphocytes/100 WBC Auto (Unsp spec) 11.5 % Low 19-41 [facility] BUN/creatinine ratioOrdered By: Virgil Tyler on 11-29-2024 Urea nitrogen/Creatinine [Mass ratio] 34.3 mg/mg High 10-20 [facility] Basophil percentageOrdered B y: Virgil Tyler on 11-29-2024 Basophils/100 WBC (Bld) 0.6 % 0-1 [facility] Bilirubin Test strip Ql (U)O rdered By: Virgil Tyler on 11-29-2024 Bilirubin Ql (U) Negative Negative [facility] Bilirubin, totalOrdered By: Virgil Tyler on 11-29-2024 Bilirubin [Mass/Vol] 0.57 mg/dL 0.00-1.30 [facility] Brain/Head without Contrasto n 11-29-2024 Brain/Head without Contrast Normal [facility] CBC W/Diff, Automatedon 11-02 Absolute Lymph 1.10 X10 3/uL Normal 0.83-4.51 [facility] Comment on above: Performed By: #### L 500.4050, L501.9520, L501.2450, L100.0100 ####[facility] [address] [place], [address] Absolute Neut 7.0 X10 3/uL Normal 2.0-7.7 [facility] Comment on above: Performed By: #### L 500.4050, L501.9520, L501.2450, L100.0100 ####[facility] [address] [place], [address] Basophils/100 WBC (Bld) 0.6 % Normal 0-1 [facility] Comment on above: Performed By: #### L 500.4050, L501.9520, L501.2450, L100.0100 ####[facility] [address] [place], [address] Eosinophils/100 WBC (Bld) 2.9 % Normal 0-5 [facility] Comment on above: Performed By: #### L 500.4050, L501.9520, L501.2450, L100.0100 ####[facility] [address] [place], [address] Erythrocyte distribution width (RBC) [Ratio] 14.4 % Normal 11.6-14.6 [facility] Comment on above: Performed By: #### L 500.4050, L501.9520, L501.2450, L100.0100 ####[facility] [address] [place], [address] Hematocrit (Bld) [Volume fraction] 34.5 % Low 37-47 [facility] Comment on above: Performed By: #### L 500.4050, L501.9520, L501.2450, L100.0100 ####[facility] [address] [place], [address] Hemoglobin (Bld) [Mass/Vol] 11.6 g/dL Low 12.0-15.0 [facility] Comment on above: Performed By: #### L 500.4050, L501.9520, L501.2450, L100.0100 ####[facility] [address] [place], [address] IG% 0.500 Normal 0.0-0.9 [facility] Comment on above: Result Comment: IG% - Immature Granulocytes (promyelocytes, myelocytes andmetamyelocytes) > 1% indicates that a LEFT SHIFT is Present. Performed By: #### L 500.4050, L501.9520, L501.2450, L100.0100 ####[facility] [address] [place], [address] Lymphocytes/100 WBC (Bld) 11.5 % Low 19-41 [facility] Comment on above: Performed By: #### L 500.4050, L501.9520, L501.2450, L100.0100 ####[facility] [address] [place], [address] MCH (RBC) [Entitic mass] 30.1 pg Normal 27.0-32.0 [facility] Comment on above: Performed By: #### L 500.4050, L501.9520, L501.2450, L100.0100 ####[facility] [address] [place], [address] MCHC (RBC) [Mass/Vol] 33.6 g/dL Normal 32-36 [facility] Comment on above: Performed By: #### L 500.4050, L501.9520, L501.2450, L100.0100 ####[facility] [address] [place], [address] MCV (RBC) [Entitic vol] 89.4 fL Normal 81-99 [facility] Comment on above: Performed By: #### L 500.4050, L501.9520, L501.2450, L100.0100 ####[facility] [address] [place], [address] Monocytes/100 WBC (Bld) 12.1 % High 0-10 [facility] Comment on above: Performed By: #### L 500.4050, L501.9520, L501.2450, L100.0100 ####[facility] [address] [place], [address] Neutrophils/100 WBC (Bld) 72.4 % High 47-70 [facility] Comment on above: Performed By: #### L 500.4050, L501.9520, L501.2450, L100.0100 ####[facility] [address] [place], [address] Nucleated RBC (Bld) [#/Vol] 0 10*3/uL Normal 0-5 [facility] Comment on above: Performed By: #### L 500.4050, L501.9520, L501.2450, L100.0100 ####[facility] [address] [place], [address] Platelet mean volume (Bld) [Entitic vol] 10.2 fL Normal 6.2-12.0 [facility] Comment on above: Performed By: #### L 500.4050, L501.9520, L501.2450, L100.0100 ####[facility] [address] [place], [address] Platelets (Bld) [#/Vol] 201 10*3/uL Normal 150-450 [facility] Comment on above: Performed By: #### L 500.4050, L501.9520, L501.2450, L100.0100 ####[facility] [address] [place], [address] RBC (Bld) [#/Vol] 3.86 10*6/uL Low 4.2-5.[address] [facility] Comment on above: Performed By: #### L 500.4050, L501.9520, L501.2450, L100.0100 ####[facility] [address] [place], [address] RDW SD 46.8 fl High 35.1-43.9 [facility] Comment on above: Performed By: #### L 500.4050, L501.9520, L501.2450, L100.0100 ####[facility] [address] [place], [address] WBC (Bld) [#/Vol] 9.6 10*3/uL Normal 4.4-11.0 [facility] Comment on above: Performed By: #### L 500.4050, L501.9520, L501.2450, L100.0100 ####[facility] [address] [place], [address] Carbon dioxide, total [Moles /volume] in Central venous bloodOrdered By: Virgil Tyler on 11-29-2024 CO2 [Moles/Vol] 22.9 mmol/L 21.0-32.0 [facility] Chloride assayOrdered By: Rj Tyler on 11-29-2024 Chloride [Moles/Vol] 98 mmol/L 98-108 [facility] Comprehensive Metabolic Prof ilon 11-29-2024 Albumin [Mass/Vol] 4.0 g/dL Normal 3.4-4.8 [facility] Comment on above: Performed By: #### L 500.4050, L501.9520, L501.2450, L100.0100 ####[facility] [address] [place], [address] Albumin/Globulin [Mass ratio] 1.7 {ratio} Normal 0.9-2.4 [facility] Comment on above: Performed By: #### L 500.4050, L501.9520, L501.2450, L100.0100 ####[facility] [address] [place], [address] ALK PHOS 63 U/L Normal 35-104 [facility] Comment on above: Performed By: #### L 500.4050, L501.9520, L501.2450, L100.0100 ####[facility] [address] [place], [address] ALT [Catalytic activity/Vol] 37 U/L High <=34 [facility] Comment on above: Performed By: #### L 500.4050, L501.9520, L501.2450, L100.0100 ####[facility] [address] [place], [address] AST [Catalytic activity/Vol] 29 U/L Normal <=31 [facility] Comment on above: Performed By: #### L 500.4050, L501.9520, L501.2450, L100.0100 ####[facility] [address] [place], [address] Bilirubin [Mass/Vol] 0.57 mg/dL Normal 0.00-1.30 [facility] Comment on above: Performed By: #### L 500.4050, L501.9520, L501.2450, L100.0100 ####[facility] [address] [place], [address] BUN/CRE 34.3 RATIO High 10-20 [facility] Comment on above: Performed By: #### L 500.4050, L501.9520, L501.2450, L100.0100 ####[facility] [address] [place], [address] Calcium [Mass/Vol] 8.9 mg/dL Normal 7.6-11.0 [facility] Comment on above: Performed By: #### L 500.4050, L501.9520, L501.2450, L100.0100 ####[facility] [address] [place], [address] Chloride [Moles/Vol] 98 mmol/L Normal 98-108 [facility] Comment on above: Performed By: #### L 500.4050, L501.9520, L501.2450, L100.0100 ####[facility] [address] [place], [address] CO2 [Moles/Vol] 22.9 mmol/L Normal 21.0-32.0 [facility] Comment on above: Performed By: #### L 500.4050, L501.9520, L501.2450, L100.0100 ####[facility] [address] [place], [address] Creatinine [Mass/Vol] 1.11 mg/dL Normal 0.70-1.20 [facility] Comment on above: Performed By: #### L 500.4050, L501.9520, L501.2450, L100.0100 ####[facility] [address] [place], [address] ECRCL 48.43 ml/min Low 50-250 [facility] Comment on above: Performed By: #### L 500.4050, L501.9520, L501.2450, L100.0100 ####[facility] [address] [place], [address] GAP 12 Normal 5-15 [facility] Comment on above: Performed By: #### L 500.4050, L501.9520, L501.2450, L100.0100 ####[facility] [address] [place], [address] GFR/1.73 sq M.predicted among non-blacks MDRD (S/P/Bld) [Vol rate/Area] 49 mL/min/{1.73_m2} Low >60 [facility] Comment on above: Result Comment: mL/m in/1.73m2 CKD-EPI Creatinine Equation (2020) Performed By: #### L 500.4050, L501.9520, L501.2450, L100.0100 ####[facility] [address] [place], [address] Globulin (S) [Mass/Vol] 2.4 g/dL Normal 2.2-4.2 [facility] Comment on above: Performed By: #### L 500.4050, L501.9520, L501.2450, L100.0100 ####[facility] [address] [place], [address] Glucose [Mass/Vol] 94 mg/dL Normal 70-99 [facility] Comment on above: Performed By: #### L 500.4050, L501.9520, L501.2450, L100.0100 ####[facility] [address] [place], [address] Potassium [Moles/Vol] 5.0 mmol/L Normal 3.3-5.1 [facility] Comment on above: Result Comment: Hemo lysis present, Results??could be affected.?? Performed By: #### L 500.4050, L501.9520, L501.2450, L100.0100 ####[facility] [address] [place], [address] Sodium [Moles/Vol] 133 mmol/L Normal 133-145 [facility] Comment on above: Performed By: #### L 500.4050, L501.9520, L501.2450, L100.0100 ####[facility] [address] [place], [address] T PROT 6.3 g/dL Normal 5.9-8.4 [facility] Comment on above: Performed By: #### L 500.4050, L501.9520, L501.2450, L100.0100 ####[facility] [address] [place], [address] Urea nitrogen [Mass/Vol] 38 mg/dL High 4-19 [facility] Comment on above: Performed By: #### L 500.4050, L501.9520, L501.2450, L100.0100 ####[facility] [address] [place], [address] Echo Completeon 11-29-2024 Echo Complete Normal [facility] Emergency Department Summary on 11-29-2024 Emergency Department Summary Normal [facility] Eosinophil percentageOrdered By: Virgil Tyler on 11-29-2024 Eosinophils/100 WBC (Bld) 2.9 % 0-5 [facility] Erythrocyte distribution wid th ratioOrdered By: Virgilbarb Tyler on 11-29-2024 Erythrocyte distribution width (RBC) [Ratio] 14.4 % 11.6-14.6 [facility] Erythrocyte distribution wid th standard deviationOrdered By: Virgil Tyler on 11-29-2024 Erythrocyte distribution width (RBC) [Ratio] 46.8 fl High 35.1-43.9 [facility] Glomerular filtration rate ( GFR) estimation/1.73 sq m using serum, plasma, or whole bOrdered By: Virgil Tyler on 11-29-2024 GFR/1.73 sq M.predicted among non-blacks MDRD (S/P/Bld) [Vol rate/Area] 49 mL/min/{1.73_m2} Low >60 [facility] Comment on above: mL/min/1.73m2 CKD-EP I Creatinine Equation (2020) H AND P Exam - Hospitaliston 11-29-2024 H&P Exam - Hospitalist Normal [facility] Hematocrit Auto (Bld) [Volum e fraction]Ordered By: Virgil Tyler on 11-29-2024 Hematocrit (Bld) [Volume fraction] 34.5 % Low 37-47 [facility] Hemoglobin A1con 11-29-2024 HbA1c (Bld) [Mass fraction] 5.7 % Normal <=5.6 [facility] Comment on above: Result Comment: Norm al < 5.7 % Prediabetic 5.7 - 6.4 % Diabetic >or= 6.5 % Please note range changes. Performed By: #### L 501.9985, L501.9520, L501.9100, L501.5200, L505.5000 ####[facility] [address] [place], [address] Hemoglobin A1c percentageOrd ered By: Tacho Goncalves on 11-29-2024 HbA1c (Bld) [Mass fraction] 5.7 % <5.7 [facility] Comment on above: Normal < 5.7 % Predi abetic 5.7 - 6.4 % Diabetic >or= 6.5 % Please note range changes. Hemoglobin measurementOrdere d By: Virgil Tyler on 11-29-2024 Hemoglobin (Bld) [Mass/Vol] 11.6 g/dL Low 12.0-15.0 [facility] Immature granulocytes/100 WB C Auto (Bld)Ordered By: Virgil Tyler on 11-29-2024 Immature granulocytes/100 WBC (Bld) 0.500 % 0.0-0.9 [facility] Comment on above: IG% - Immature Granu locytes (promyelocytes, myelocytes and metamyelocytes) > 1% indicates that a LEFT SHIFT is Present. Ketones Test strip Ql (U)Ord ered By: Virgil Tyler on 11-29-2024 Ketones Ql (U) Negative Negative [facility] Laboratory - Chemistry and C hemistry - challengeOrdered By: Virgil Tyler on 11-29-2024 AST [Catalytic activity/Vol] 29 U/L <32 [facility] Lipaseon 11-29-2024 Lipase [Catalytic activity/Vol] 20 U/L Normal 13-75 [facility] Comment on above: Result Comment: Tomasa garcia note:LIPASE revised reference range effective 22.New Lipase methodology. Expected to produce lower valuesthan the previous assay method.NEW Reference Range: 13 - 75 U/L Performed By: #### L 500.4050, L501.9520, L501.2450, L100.0100 ####[facility] [address] [place], [address] Lipase measurementOrdered By : Virgil Tyler on 11-29-2024 Lipase [Catalytic activity/Vol] 20 U/L 13-75 [facility] Comment on above: Please note:LIPASE r evised reference range effective 22. New Lipase methodology. Expected to produce lower values than the previous assay method. NEW Reference Range: 13 - 75 U/L MCV (mean corpuscular volume ) determinationOrdered By: Virgil Tyler on 11-29-2024 MCV (RBC) [Entitic vol] 89.4 fL 81-99 [facility] Magnesiumon 11-29-2024 Magnesium [Mass/Vol] 2.3 mg/dL High 1.5-2.2 [facility] Comment on above: Performed By: #### L 501.9985, L501.9520, L501.9100, L501.5200, L505.5000 ####[facility] [address] [place], [place], [address] Magnesium measurement (mass/ volume)Ordered By: Tacho Goncalves on 11-29-2024 Magnesium (Unsp spec) [Mass/Vol] 2.3 mg/dL High 1.5-2.2 [facility] Mean corpuscular hemoglobin (MCH) determinationOrdered By: Virgil Tyler on 11-29-2024 MCH (RBC) [Entitic mass] 30.1 pg 27.0-32.0 [facility] Mean corpuscular hemoglobin concentration (MCHC) determinationOrdered By: Virgil Tyler on 11-29-2024 MCHC (RBC) [Mass/Vol] 33.6 g/dL 32-36 [facility] Mean platelet volume determi nationOrdered By: Virgil Tyler on 11-29-2024 Platelet mean volume (Bld) [Entitic vol] 10.2 fL 6.2-12.0 [facility] Microscopic analysis of urin e for red blood cells (RBC)Ordered By: Virgil Tyler on 11-29-2024 Microscopic analysis of urine for red blood cells (RBC) 0 SEEN /hpf 0-5 [facility] Monocyte percentageOrdered B y: Virgil Tyler on 11-29-2024 Monocytes/100 WBC (Bld) 12.1 % High 0-10 [facility] Mucus LM Ql (Urine sed)Order ed By: Virgil Tyler on 11-29-2024 Mucus Ql (Urine sed) 0 SEEN /hpf [facility] Neutrophil percentageOrdered By: Virgil Tyler on 11-29-2024 Neutrophils/100 WBC (Bld) 72.4 % High 47-70 [facility] Nitrite Test strip Ql (U)Ord ered By: Virgil Tyler on 11-29-2024 Nitrite Ql (U) Negative Negative [facility] Nucleated red blood cell per centageOrdered By: Virgil Tyler on 11-29-2024 Nucleated RBC/100 WBC (Bld) [Ratio] 0 % 0-5 [facility] Platelet countOrdered By: Rj Tyler on 11-29-2024 Platelets (Bld) [#/Vol] 201 10*3/uL 150-450 [facility] Potassium measurement (mass/ volume)Ordered By: Virgil Tyler on 11-29-2024 Potassium (Unsp spec) [Mass/Vol] 5.0 mmol/L 3.3-5.1 [facility] Comment on above: Hemolysis present, R esults could be affected. Protein Test strip Ql (U)Ord ered By: Virgil Tyler on 11-29-2024 Protein Ql (U) Negative Negative [facility] RBC Auto (Bld) [#/Vol]Ordere d By: Virgil Tyler on 11-29-2024 RBC (Bld) [#/Vol] 3.86 10*6/uL Low 4.2-5.[address] [facility] Serum creatinine measurement (mass/volume)Ordered By: Virgil Tyler on 11-29-2024 Creatinine [Mass/Vol] 1.11 mg/dL 0.70-1.20 [facility] Serum globulin measurementOr dered By: Virgil Tyler on 11-29-2024 Globulin (S) [Mass/Vol] 2.4 g/dL 2.2-4.2 [facility] Serum glucose measurement (m ass/volume)Ordered By: Virgil Tyler on 11-29-2024 Glucose [Mass/Vol] 94 mg/dL 70-99 [facility] Serum or plasma alanine sprague otransferase (ALT) measurementOrdered By: Virgil Tyler on 11-29-2024 ALT [Catalytic activity/Vol] 37 U/L High <35 [facility] Serum or plasma albumin julee urement (mass/volume)Ordered By: Virgil Tyler on 11-29-2024 Albumin [Mass/Vol] 4.0 g/dL 3.4-4.8 [facility] Serum or plasma albumin/glob ulin mass ratioOrdered By: Virgil Tyler on 11-29-2024 Albumin/Globulin [Mass ratio] 1.7 {ratio} 0.9-2.4 [facility] Serum or plasma alkaline rachel sphatase measurementOrdered By: Virgil Tyler on 11-29-2024 ALP [Catalytic activity/Vol] 63 U/L 35-104 [facility] Serum or plasma calcium julee urement (mass/volume)Ordered By: Virgil Tyler on 11-29-2024 Calcium [Mass/Vol] 8.9 mg/dL 7.6-11.0 [facility] Serum or plasma ethanol julee urement (mass/volume)Ordered By: Tacho Goncalves on 11-29-2024 Ethanol [Mass/Vol] mg/dL <10.1 [facility] Comment on above: This test is for med ical purposes only. The legal definition of intoxication varies according to local law. Serum or plasma urea nitroge n measurement (mass/volume)Ordered By: Virgil Tyler on 11-29-2024 Urea nitrogen [Mass/Vol] 38 mg/dL High 4-19 [facility] Sodium levelOrdered By: Virgil Tyler on 11-29-2024 Sodium [Moles/Vol] 133 mmol/L 133-145 [facility] Squamous epithelial cells de tection in urine sediment by light microscopyOrdered By: Virgil Tlyer on 11-29-2024 Epithelial cells.squamous LM Ql (Urine sed) 0-5 SEEN /hpf 5-10 [facility] TSH DL <= 0.005 mIU/L QnOrde red By: Virgil Tyler on 11-29-2024 TSH Qn 2.190 uIU/mL 0.300-4.20 0 [facility] TSH DL <= 0.005 mIU/L QnOrde red By: Tacho Goncalves on 11-29-2024 TSH Qn 2.120 uIU/mL 0.300-4.20 0 [facility] Thyroid Stim Hormone (TSH)on 07-30-2025 TSH 2.120 uIU/mL Normal 0.300-4.20 0 [facility] Comment on above: Performed By: #### L 501.9985, L501.9520, L501.9100, L501.5200, L505.5000 ####[facility] [address] [place], [address] TSH 2.190 uIU/mL Normal 0.300-4.20 0 [facility] Comment on above: Performed By: #### L 500.4050, L501.9520, L501.2450, L100.0100 ####[facility] [address] [place], [address] Total proteinOrdered By: Leticia Tyler on 11-29-2024 Protein [Mass/Vol] 6.3 g/dL 5.9-8.4 [facility] Urinalysis, Completeon 11-29 EPI,SQUAMOUS 0-5 SEEN Normal 5-10 [facility] Comment on above: Order Comment: COLLE CTOR TO SPECIFY Performed By: #### L 400.0001 ####[facility] [address] [place], [address] WBC 0-5 SEEN Normal 0-5 [facility] Comment on above: Order Comment: COLLE CTOR TO SPECIFY Performed By: #### L 400.0001 ####[facility] [address] [place], [address] BACTERIA 0 SEEN Normal None Seen [facility] Comment on above: Order Comment: COLLE CTOR TO SPECIFY Performed By: #### L 400.0001 ####[facility] [address] [place], [address] Mucus Ql (Urine sed) 0 SEEN Normal [facility] Comment on above: Order Comment: COLLE CTOR TO SPECIFY Performed By: #### L 400.0001 ####[facility] [address] [place], [address] RBC 0 SEEN Normal 0-5 [facility] Comment on above: Order Comment: COLLE CTOR TO SPECIFY Performed By: #### L 400.0001 ####[facility] [address] [place], [address] Urine clarityOrdered By: Leticia Tyler on 11-29-2024 Clarity (U) Clear Clear [facility] Urine color determinationOrd ered By: Virgil Tyler on 11-29-2024 Color (U) Yellow Yellow [facility] Urine glucose detectionOrder ed By: Virgil Tyler on 11-29-2024 Glucose Ql (U) Normal mg/dl Normal [facility] Urine leukocyte esterase det ection by dipstickOrdered By: Virgil Tyler on 11-29-2024 Leukocyte esterase Test strip Ql (U) 500 /ul High Negative [facility] Urine pHOrdered By: Virgil del real on 11-29-2024 pH (U) 6.0 [pH] 5.0 - 8.0 [facility] Urine sediment bacteria coun t by microscopy (number/high power field)Ordered By: Virgil Tyler on 11-29-2024 Bacteria LM.HPF (Urine sed) [#/Area] 0 /[HPF] None Seen [facility] Urine specific gravity measu rementOrdered By: Virgil Tyler on 11-29-2024 Specific gravity (U) [Rel density] 1.010 1.002-1.03 0 [facility] Urine urobilinogen measureme ntOrdered By: Virgil Tyler on 11-29-2024 Urobilinogen Ql (U) Normal mg/dl Normal [facility] Vitamin B12 ser/plasOrdered By: Tacho Goncalves on 11-29-2024 Cobalamin (Vitamin B12) [Mass/Vol] 2838 pg/mL High 180-914 [facility] White blood cell (WBC) count Ordered By: Virgil Tyler on 11-29-2024 WBC (Bld) [#/Vol] 9.6 10*3/uL 4.4-11.0 [facility] White blood cell countOrdere d By: Virgil Tyler on 11-29-2024 White blood cell count 0-5 SEEN /hpf 0-5 [facility] 11-10-2024 CNPN Telephone (FAMPWS) MICHAEL MEIER ([id number]) 1940 F Date Time Provider Department 11/10/24 MICHAEL PUGA FAMWS During your visit today, we recorded the following information about you: Amanda Pratt RN 11/10/2024 2:50 PM Signed Kell with [facility] calls to let provider know that [...] included)... Normal [facility] Cardiology Visit Reporton Cardiology Visit Report Normal [facility] 11-01-2024 LORRI Telephone (KHADAR) MICHAEL MEIER ([id number]) 1940 F Date Time Provider Department 11/01/24 KEY PORTILLO During your visit today, we recorded the following information about you: Key Portillo APRN.[facility] 11/01/2024 9:22 AM Signed ----- Message from Sarah Merchant, PT sent at 10/27/2024 6:59 PM EDT ----- Hi Dr Puga, We're seeing Michael for PT (she was referred by [facility]) and we've also seen her here in the past for ortho/mobility issues. She's been reporting increased Shortness of Breath with minimal activity which I definitely noticed today (I encouraged her to go to ER prn but she doesn't think it's necessary). She's also reporting increased low back pain (mostly with standing AND walking). 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 I also think a spine/pain mgmt consult would be a good idea for the chronic/worsening low back pain. Thanks, Sarah Merchant, PT Key Portillo APRN.PERFORMANCE IMPROVEMENT COORDINATOR 11/01/2024 9:22 AM Signed Please see if patient is willing to make appointment due to Shortness of Breath as mentioned below. Thank you, Key Portillo APRN.PERFORMANCE IMPROVEMENT COORDINATOR Marisol Cano LPN 11/01/2024 12:50 PM Signed [...] included)... Normal [facility] Absolute lymphocyte countOrd ered By: Anabel Horne on 10-31-2024 Lymphocytes Auto (Unsp spec) [#/Vol] 1.16 10*3/uL 0.83-4.51 [facility] Absolute neutrophil countOrd ered By: Anabel Horne on 10-31-2024 Neutrophils (Bld) [#/Vol] 10.5 10*3/uL High 2.0-7.7 [facility] Anion gap in Serum or Plasma Ordered By: Anabel Horne on 10-31-2024 Anion gap [Moles/Vol] 14 mmol/L 5-15 [facility] Automated lymphocyte count a s percentage of total leukocytesOrdered By: Anabel Horne on 10-31-2024 Lymphocytes/100 WBC Auto (Unsp spec) 8.7 % Low 19-41 [facility] BUN/creatinine ratioOrdered By: Anabel Horne on 10-31-2024 Urea nitrogen/Creatinine [Mass ratio] 26.2 mg/mg High 02-19 [facility] Basic Metabolic Profile (BMP )on 10-31-2024 BUN/CRE 26.2 RATIO High 02-19 [facility] Comment on above: Performed By: #### L 100.0100, L501.9520, L500.2500, L503.7505 ####[facility] [address] [place], [address] Calcium [Mass/Vol] 9.0 mg/dL Normal 7.6-11.0 [facility] Comment on above: Performed By: #### L 100.0100, L501.9520, L500.2500, L503.7505 ####[facility] [address] [place], [address] Chloride [Moles/Vol] 96 mmol/L Low 98-108 [facility] Comment on above: Performed By: #### L 100.0100, L501.9520, L500.2500, L503.7505 ####[facility] [address] [place], [address] CO2 [Moles/Vol] 23.0 mmol/L Normal 21.0-32.0 [facility] Comment on above: Performed By: #### L 100.0100, L501.9520, L500.2500, L503.7505 ####[facility] [address] [place], [address] Creatinine [Mass/Vol] 1.40 mg/dL High 0.70-1.20 [facility] Comment on above: Performed By: #### L 100.0100, L501.9520, L500.2500, L503.7505 ####[facility] [address] [place], [address] GAP 14 Normal 5-15 [facility] Comment on above: Performed By: #### L 100.0100, L501.9520, L500.2500, L503.7505 ####[facility] [address] [place], [address] GFR/1.73 sq M.predicted among non-blacks MDRD (S/P/Bld) [Vol rate/Area] 37 mL/min/{1.73_m2} Low >60 [facility] Comment on above: Result Comment: mL/m in/1.73m2 CKD-EPI Creatinine Equation (2020) Performed By: #### L 100.0100, L501.9520, L500.2500, L503.7505 ####[facility] [address] [place], [address] Glucose [Mass/Vol] 94 mg/dL Normal 70-99 [facility] Comment on above: Performed By: #### L 100.0100, L501.9520, L500.2500, L503.7505 ####[facility] [address] [place], [address] Potassium [Moles/Vol] 5.0 mmol/L Normal 3.3-5.1 [facility] Comment on above: Result Comment: Hemo lysis present, Results??could be affected.?? Performed By: #### L 100.0100, L501.9520, L500.2500, L503.7505 ####[facility] [address] [place], [address] Sodium [Moles/Vol] 133 mmol/L Normal 133-145 [facility] Comment on above: Performed By: #### L 100.0100, L501.9520, L500.2500, L503.7505 ####[facility] [address] [place], [address] Urea nitrogen [Mass/Vol] 37 mg/dL High 4-19 [facility] Comment on above: Performed By: #### L 100.0100, L501.9520, L500.2500, L503.7505 ####[facility] [address] [place], [address] Basophil percentageOrdered B y: Anabel Horne on 10-31-2024 Basophils/100 WBC (Bld) 0.6 % 0-1 [facility] CBC W/Diff, Automatedon 07-0 -2024 Absolute Lymph 1.16 X10 3/uL Normal 0.83-4.51 [facility] Comment on above: Performed By: #### L 100.0100, L501.9520, L500.2500, L503.7505 ####[facility] [address] [place], [address] Absolute Neut 10.5 X10 3/uL High 2.0-7.7 [facility] Comment on above: Performed By: #### L 100.0100, L501.9520, L500.2500, L503.7505 ####[facility] [address] [place], [address] Basophils/100 WBC (Bld) 0.6 % Normal 0-1 [facility] Comment on above: Performed By: #### L 100.0100, L501.9520, L500.2500, L503.7505 ####[facility] [address] [place], [address] Eosinophils/100 WBC (Bld) 0.7 % Normal 0-5 [facility] Comment on above: Performed By: #### L 100.0100, L501.9520, L500.2500, L503.7505 ####[facility] [address] [place], [address] Erythrocyte distribution width (RBC) [Ratio] 14.4 % Normal 11.6-14.6 [facility] Comment on above: Performed By: #### L 100.0100, L501.9520, L500.2500, L503.7505 ####[facility] [address] [place], [address] Hematocrit (Bld) [Volume fraction] 37.0 % Normal 37-47 [facility] Comment on above: Performed By: #### L 100.0100, L501.9520, L500.2500, L503.7505 ####[facility] [address] [place], [address] Hemoglobin (Bld) [Mass/Vol] 12.4 g/dL Normal 12.0-15.0 [facility] Comment on above: Performed By: #### L 100.0100, L501.9520, L500.2500, L503.7505 ####[facility] [address] [place], [address] IG% 0.500 Normal 0.0-0.9 [facility] Comment on above: Result Comment: IG% - Immature Granulocytes (promyelocytes, myelocytes andmetamyelocytes) > 1% indicates that a LEFT SHIFT is Present. Performed By: #### L 100.0100, L501.9520, L500.2500, L503.7505 ####[facility] [address] [place], [address] Lymphocytes/100 WBC (Bld) 8.7 % Low 19-41 [facility] Comment on above: Performed By: #### L 100.0100, L501.9520, L500.2500, L503.7505 ####[facility] [address] [place], [address] MCH (RBC) [Entitic mass] 30.3 pg Normal 27.0-32.0 [facility] Comment on above: Performed By: #### L 100.0100, L501.9520, L500.2500, L503.7505 ####[facility] [address] [place], [address] MCHC (RBC) [Mass/Vol] 33.5 g/dL Normal 32-36 [facility] Comment on above: Performed By: #### L 100.0100, L501.9520, L500.2500, L503.7505 ####[facility] [address] [place], [address] MCV (RBC) [Entitic vol] 90.5 fL Normal 81-99 [facility] Comment on above: Performed By: #### L 100.0100, L501.9520, L500.2500, L503.7505 ####[facility] [address] [place], [address] Monocytes/100 WBC (Bld) 10.6 % High 0-10 [facility] Comment on above: Performed By: #### L 100.0100, L501.9520, L500.2500, L503.7505 ####[facility] [address] [place], [address] Neutrophils/100 WBC (Bld) 78.9 % High 47-70 [facility] Comment on above: Performed By: #### L 100.0100, L501.9520, L500.2500, L503.7505 ####[facility] [address] [place], [address] Nucleated RBC (Bld) [#/Vol] 0 10*3/uL Normal 0-5 [facility] Comment on above: Performed By: #### L 100.0100, L501.9520, L500.2500, L503.7505 ####[facility] [address] [place], [address] Platelet mean volume (Bld) [Entitic vol] 10.1 fL Normal 6.2-12.0 [facility] Comment on above: Performed By: #### L 100.0100, L501.9520, L500.2500, L503.7505 ####[facility] [address] [place], [address] Platelets (Bld) [#/Vol] 292 10*3/uL Normal 150-450 [facility] Comment on above: Performed By: #### L 100.0100, L501.9520, L500.2500, L503.7505 ####[facility] [address] [place], [address] RBC (Bld) [#/Vol] 4.09 10*6/uL Low 4.2-5.[address] [facility] Comment on above: Performed By: #### L 100.0100, L501.9520, L500.2500, L503.7505 ####[facility] [address] [place], [address] RDW SD 47.9 fl High 35.1-43.9 [facility] Comment on above: Performed By: #### L 100.0100, L501.9520, L500.2500, L503.7505 ####[facility] [address] [place], [address] WBC (Bld) [#/Vol] 13.3 10*3/uL High 4.4-11.[address] [facility] Comment on above: Performed By: #### L 100.0100, L501.9520, L500.2500, L503.7505 ####[facility] [address] [place], [address] Carbon dioxide, total [Moles /volume] in Central venous bloodOrdered By: Anabel Horne on 10-31-2024 CO2 [Moles/Vol] 23.0 mmol/L 21.0-32.0 [facility] Chest PA and Lateralon 10-31 Chest PA and Lateral Normal [facility] Chloride assayOrdered By: Sugey Horne on 10-31-2024 Chloride [Moles/Vol] 96 mmol/L Low 98-108 [facility] Eosinophil percentageOrdered By: Anabel Horne on 10-31-2024 Eosinophils/100 WBC (Bld) 0.7 % 0-5 [facility] Erythrocyte distribution wid th ratioOrdered By: Anabel Horne on 10-31-2024 Erythrocyte distribution width (RBC) [Ratio] 14.4 % 11.6-14.6 [facility] Erythrocyte distribution wid th standard deviationOrdered By: Anabel Horne on 10-31-2024 Erythrocyte distribution width (RBC) [Ratio] 47.9 fl High 35.1-43.9 [facility] Glomerular filtration rate ( GFR) estimation/1.73 sq m using serum, plasma, or whole bOrdered By: Anabel Horne on 10-31-2024 GFR/1.73 sq M.predicted among non-blacks MDRD (S/P/Bld) [Vol rate/Area] 37 mL/min/{1.73_m2} Low >60 [facility] Comment on above: mL/min/1.73m2 CKD-EP I Creatinine Equation (2020) Hematocrit Auto (Bld) [Volum e fraction]Ordered By: Anabel Horne on 10-31-2024 Hematocrit (Bld) [Volume fraction] 37.0 % 37-47 [facility] Hemoglobin measurementOrdere d By: Anabel Horne on 10-31-2024 Hemoglobin (Bld) [Mass/Vol] 12.4 g/dL 12.0-15.0 [facility] Immature granulocytes/100 WB C Auto (Bld)Ordered By: Anabel Horne on 10-31-2024 Immature granulocytes/100 WBC (Bld) 0.500 % 0.0-0.9 [facility] Comment on above: IG% - Immature Granu locytes (promyelocytes, myelocytes and metamyelocytes) > 1% indicates that a LEFT SHIFT is Present. L503.7505on 10-31-2024 Natriuretic peptide B (Bld) [Mass/Vol] 216 pg/mL Normal <=1800 [facility] Comment on above: Result Comment: Hear t Failure Unlikely: < 300 pg/mLHeart Failure Likely< 50 Years: > 450 pg/mL50-75 Years: > 900 pg/mL>75 Years: > 1800 pg/mL Performed By: #### L 100.0100, L501.9520, L500.2500, L503.7505 ####[facility] [address] [place], [address] MCV (mean corpuscular volume ) determinationOrdered By: Anabel Horne on 10-31-2024 MCV (RBC) [Entitic vol] 90.5 fL 81-99 [facility] Mean corpuscular hemoglobin (MCH) determinationOrdered By: Anabel Horne on 10-31-2024 MCH (RBC) [Entitic mass] 30.3 pg 27.0-32.0 [facility] Mean corpuscular hemoglobin concentration (MCHC) determinationOrdered By: Anabel Horne on 10-31-2024 MCHC (RBC) [Mass/Vol] 33.5 g/dL 32-36 [facility] Mean platelet volume determi nationOrdered By: Anabel Horne on 10-31-2024 Platelet mean volume (Bld) [Entitic vol] 10.1 fL 6.2-12.0 [facility] Monocyte percentageOrdered B y: Anabel Horne on 10-31-2024 Monocytes/100 WBC (Bld) 10.6 % High 0-10 [facility] Natriuretic peptide.B prohor carmelita N-Terminal [Mass/volume] in Serum or PlasmaOrdered By: Anabel Horne on 10-31-2024 Natriuretic peptide.B prohormone N-Terminal [Mass/Vol] 216 pg/mL <1800 [facility] Comment on above: Heart Failure Unlike ly: < 300 pg/mLHeart Failure Likely< 50 Years: > 450 pg/mL50-75 Years: > 900 pg/mL>75 Years: > 1800 pg/mL Neutrophil percentageOrdered By: Anabel Horne on 10-31-2024 Neutrophils/100 WBC (Bld) 78.9 % High 47-70 [facility] Nucleated red blood cell per centageOrdered By: Anabel Horne on 10-31-2024 Nucleated RBC/100 WBC (Bld) [Ratio] 0 % 0-5 [facility] Platelet countOrdered By: Sugey Horne on 10-31-2024 Platelets (Bld) [#/Vol] 292 10*3/uL 150-450 [facility] Potassium measurement (mass/ volume)Ordered By: Anabel Horne on 10-31-2024 Potassium (Unsp spec) [Mass/Vol] 5.0 mmol/L 3.3-5.1 [facility] Comment on above: Hemolysis present, R esults could be affected. RBC Auto (Bld) [#/Vol]Ordere d By: Anabel Horne on 10-31-2024 RBC (Bld) [#/Vol] 4.09 10*6/uL Low 4.2-5.[address] [facility] Serum creatinine measurement (mass/volume)Ordered By: Anabel Horne on 10-31-2024 Creatinine [Mass/Vol] 1.40 mg/dL High 0.70-1.20 [facility] Serum glucose measurement (m ass/volume)Ordered By: Anabel Horne on 10-31-2024 Glucose [Mass/Vol] 94 mg/dL 70-99 [facility] Serum or plasma calcium julee urement (mass/volume)Ordered By: Anabel Horne on 10-31-2024 Calcium [Mass/Vol] 9.0 mg/dL 7.6-11.0 [facility] Serum or plasma urea nitroge n measurement (mass/volume)Ordered By: Anabel Horne on 10-31-2024 Urea nitrogen [Mass/Vol] 37 mg/dL High 4-19 [facility] Sodium levelOrdered By: Thien Horne on 10-31-2024 Sodium [Moles/Vol] 133 mmol/L 133-145 [facility] TSH DL <= 0.005 mIU/L QnOrde red By: Anabel Horne on 10-31-2024 TSH Qn 3.460 uIU/mL 0.300-4.20 0 [facility] Thyroid Stim Hormone (TSH)on 10-31-2024 TSH 3.460 uIU/mL Normal 0.300-4.20 0 [facility] Comment on above: Performed By: #### L 100.0100, L501.9520, L500.2500, L503.7505 ####[facility] [address] [place], [place], [id number] White blood cell (WBC) count Ordered By: Anabel Horne on 10-31-2024 WBC (Bld) [#/Vol] 13.3 10*3/uL High 4.4-11.[address] [facility] CNTHERAPYon 10-27-2024 CNTHERAPY OT/PT/Speech Visit ( LDPT) HARDEEPMICHAEL ([id number]) 1940 F Date Time Provider Department 10/27/24 12:45 PM SARAH MERCHANT LDFRANTZ Date Time Provider Department Agency 10/27/2024 12:45 PM [id number], CARLA LDPT [facility] Reason for Visit: Physical Therapy [...] capsule by mouth once daily. [facility] MICHAEL MEIER ([id number]) 1940 F Date Time Provider Department 10/25/24 [...] included)... Normal [facility] CNTHERAPYon 10-09-2024 CNTHERAPY OT/PT/Speech Visit ( LDPT) BORNSTINE,MICHAEL J ([id number]) 1940 F Date Time Provider Department 10/09/24 12:45 PM JOY SUN Date Time Provider Department Agency 10/09/2024 12:45 PM [id number] SUN [facility] Reason for Visit: Physical Therapy [...] 1 capsule by mouth once daily. Normal [facility] CNTHERAPYon 10-02-2024 CNTHERAPY OT/PT/Speech Visit ( LDPT) MICHAEL MEIER ([id number]) 1940 F Date Time Provider Department 10/02/24 3:00 PM PJ BLEDSOE ADRIANA Date Time Provider Department Center 10/02/2024 3:00 PM [id number], PJ WRIGHT [facility] Reason for Visit: Physical Therapy [...] 1 capsule by mouth once daily. Normal [facility] [id number] 09-28-2024 [id number] O ID: [id number] Author: SARAH MERCHANT PT Service: ? Author Type: Physical Therapist Type: [id number] Filed: 09/28/2024 15:41 Note Text: [facility] Physical Therapy Plan of Care Certification Patient Name: Michael Meier : 1940 CC #: [id number] Date: 09/28/2024 To: Arlene Schwarz MD From [...] increase T-score by a minimum 5 points. Davilla in home exercise program. Patient will demonstrate [...] Planned: 12 Planned Treatment Interventions: Therapeutic exercise (98438), Neuromuscular re-education (90139), Therapeutic activities (83861), Self-mcc management (10533), Gait Training (16721), Patient/Family/Caregiver Education, General Conditioning PLAN FOR NEXT [...] reviewed the treatment plan for Michael Meier, [facility]# [id number] for the period of 09/28/24 -- 12/27/24, established on 09/28/2024. Signature certifies the need for therapy services. [facility] 09-28-2024 [facility] HARDEEPMICHAEL ([id number]) 1940 F Date Time Provider Department 09/28/24 [facility] During your visit today, we recorded the following information about you: Nadine Colon LPN 09/28/2024 1:48 PM Signed Kell from [facility] calling to report patient tremor is [...] of the office. Please advise Key Portillo APRN.PERFORMANCE IMPROVEMENT COORDINATOR 09/28/2024 3:02 PM Signed Pt needs appointment [...] included)... Normal [facility] CNTHERAPYon 09-28-2024 CNTHERAPY OT/PT/Speech Visit ( LDPT) MICHAEL MEIER ([id number]) 1940 F Date Time Provider Department 09/28/24 2:15 PM SARAH MERCHANT LDPT Date Time Provider Department Center 09/28/2024 2:15 PM [id number], CARLA LDPT [facility] Reason for Visit: PT Eval [...] mouth once daily. Letter Text [facility] C[facility] Telephone (FAMPWS) MICHAEL MEIER ([id number]) 1940 F Date Time Provider Department 09/08/24 MICHAEL PUGA [facility] During your visit today, we recorded the [...] guidelines. Please phone Jackelin with any questions: [phone] extension [phone] Michael Puga DO 09/08/2024 12:37 PM Signed Noted, is she willing to do this testing? DO Juan Diego Dow M Robin, RN 09/08/2024 1:38 PM Signed Phoned pt and explained what Poornima reported needed to be done per Medicare guidelines for her to qualify for oxygen. Pt reports she was in [facility] about a yr ago with pneumonia, [...] aspirin, e (more content not included)... [facility] MICHAEL MEIER ([id number]) 1940 F Date Time Provider Department 09/05/24 [...] 09/07/2024 11:18 AM Signed Petra NOLASCO from [facility] calls and is asking status of request. When order is placed, please fax order to [employer] Please place order for nighttime pulsometry test and fax to [employer] Please review and advise, GLYNN Bonilla Rebekah, [...] Fully Assessed Reason for Visit: Patient Question [[id number]] Primary Visit Diagnosis:Congestive heart failure, unspecified HF chronicity, unspecified heart failure type (HCC) [I50.9] Other Visit Diagnoses:Obstructive lung disease (HCC) [J44.9] Chronic respiratory failure with hypoxia (HCC) [J96.11] Order(s):NONINVASV OXYGEN SATUR;SINGLE [[id number]] Order #: [id number] Prescriptions as of 09/08/2024 - rOPINIRole (REQUIP) [...] included)... Normal [facility] CNOVon 08-30-2024 CNOV Office Visit (FAMPWS ) MICHAEL MEIER ([id number]) 1940 F Date Time Provider Department 08/30/24 3:00 PM MICHAEL PUGA FAMPWS During your visit today, we recorded the following information about you: Temperature Pulse Respiration Blood pressure 97 degrees 64/minute 20/minute 148/64 Weight 104.3 kg PugaMichael tam, DO 08/30/2024 10:10 PM Signed CC: [...] ACETBLR/PROX FEM PROSTC AGRFT/ALGRFT Left 07/2016 [facility] CONDYLEANDPLATU MEDIALANDLAT COMPARTMENTS 11/15/2009 Knee replacement, total -Left - [facility] ARTHRP KNE CONDYLEANDPLATU MEDIALANDLAT COMPARTMENTS 12/30/2009 Right knee replaced COLONOSCOPY FLX DX W/COLLJ SPEC WHEN PFRMD 06/29/2017 Colonoscopy EGD 10/17/2020 EGD W/O [facility] SPEC VARICIES INJ 01/08/2022 EGD W/O [facility]SH [...] included)... Normal [facility] HEMOGLOBIN A1C (POC)on 08-30 HbA1c (Bld) [Mass fraction] 5.2 % 4.3 - 5.6 % [facility] Comment on above: Location:[address], [place], [address] Point of care (POC) Hemoglobin A1c (HGBA1C) [...] specific diabetes management situations: The POC device customer agent provides a normal range of 4.2% to 6.5% for the HGBA1C POC test. However, the [place] [employer] guidelines indicate that patients with [...] anemia) that alter red blood cell lifespan. [facility] Priscila 08-25-2024 CARMELINAN Telephone (FAMJersonWS) MICHAEL MEIER ([id number]) 1940 F Date Time Provider Department 08/25/24 ASIA ROSALES During your visit today, we recorded the following information about you: Ruba Argueta LPN 08/25/2024 9:35 AM Signed Petra from [facility] calling stating that the referral for Palliative Care be faxed to [facility] at [phone]. Referral and office visit faxed as requested. [...] included)... Normal [facility] CNOVon 08-17-2024 CNOV Office Visit (FAMPWS ) MICHAEL MEIER ([id number]) 1940 F Date Time Provider Department 08/17/24 3:20 PM ASIA ROSALES During your visit today, we recorded the following information about you: Pulse Blood pressure 61/minute 136/68 Asia Rosales APRN.PERFORMANCE IMPROVEMENT COORDINATOR 08/18/2024 8:27 AM Signed Chief Complaint Patient [...] COMPARTMENTS 11/15/2009 Knee replacement, total -Left - [facility] ARTHRP KATIE CONDYLEANDPLATU MEDIALANDLAT COMPARTMENTS 12/30/2009 Right knee replaced COLONOSCOPY FLX DX W/COLLJ SPEC WHEN PFRMD 06/29/2017 Colonoscopy EGD 10/17/2020 EGD W/O [facility] SPEC VARICIES INJ 01/08/2022 EGD W/O [facility] SPEC VARICIES INJ 03/31/2024 Lito ESOPHAGOGASTRODUODENOSCOPY TRANSORAL [...] ENTERIC COATED (more content not included)... Normal [facility] 08-16-2024 [facility] MICHAEL MEIER ([id number]) 1940 F Date Time Provider Department 08/16/24 MICHAEL PUGA [facility] During your visit today, we recorded the following information about you: Loli Adamson RN 08/16/2024 1:46 PM [facility] reports she is seeing patient and [...] nurse phoned patient and scheduled appt with Lens Molding Equipment Operator for tomorrow to see if Lens Molding Equipment Operator can increase patient's paxil. Asia Rosales APRN.PERFORMANCE IMPROVEMENT COORDINATOR 08/18/2024 2:37 PM Signed I saw her in the office yesterday 08/17 and these concerns were addressed. Asia Rosales APRN.PERFORMANCE IMPROVEMENT COORDINATOR Allergies As of Date: 08/16/2024 Noted Allergy [...] included)... Normal [facility] Anion gap in Serum or Plasma Ordered By: Anabel Horne on 07-07-2024 Anion gap [Moles/Vol] 20 mmol/L High 09-14 [facility] BUN/creatinine ratioOrdered By: Anabel Horne on 07-07-2024 Urea nitrogen/Creatinine [Mass ratio] 26.5 mg/mg High - [facility] Basic Metabolic Profile (BMP )on 07-07-2024 BUN/CRE 26.5 RATIO High [facility] Comment on above: Performed By: #### L 500.2500 ####[facility] [address] [place], [address] Calcium [Mass/Vol] 9.5 mg/dL Normal 7.6-11.0 [facility] Comment on above: Performed By: #### L 500.2500 ####[facility] [address] [place], [address] Chloride [Moles/Vol] 97 mmol/L Low 98-108 [facility] Comment on above: Performed By: #### L 500.2500 ####[facility] [address] [place], [address] CO2 [Moles/Vol] 19.7 mmol/L Low 21.0-32.0 [facility] Comment on above: Performed By: #### L 500.2500 ####[facility] [address] [place], [address] Creatinine [Mass/Vol] 1.30 mg/dL High 0.70-1.20 [facility] Comment on above: Performed By: #### L 500.2500 ####[facility] [address] [place], [address] GAP 20 High 5-15 [facility] Comment on above: Performed By: #### L 500.2500 ####[facility] [address] [place], [address] GFR/1.73 sq M.predicted among non-blacks MDRD (S/P/Bld) [Vol rate/Area] 41 mL/min/{1.73_m2} Low >60 [facility] Comment on above: Result Comment: mL/m in/1.73m2 CKD-EPI Creatinine Equation (2020) Performed By: #### L 500.2500 ####[facility] [address] [place], [address] Glucose [Mass/Vol] 99 mg/dL Normal 70-99 [facility] Comment on above: Performed By: #### L 500.2500 ####[facility] [address] [place], [address] Potassium [Moles/Vol] 4.3 mmol/L Normal 3.3-5.1 [facility] Comment on above: Performed By: #### L 500.2500 ####[facility] [address] [place], [address] Sodium [Moles/Vol] 137 mmol/L Normal 133-145 [facility] Comment on above: Performed By: #### L 500.2500 ####[facility] [address] [place], [address] Urea nitrogen [Mass/Vol] 35 mg/dL High 4-19 [facility] Comment on above: Performed By: #### L 500.2500 ####[facility] [address] [place], [address] Carbon dioxide, total [Moles /volume] in Central venous bloodOrdered By: Anabel Horne on 07-07-2024 CO2 [Moles/Vol] 19.7 mmol/L Low 21.0-32.0 [facility] Chloride assayOrdered By: Sugey Horne on 07-07-2024 Chloride [Moles/Vol] 97 mmol/L Low 98-108 [facility] GFR/1.73 sq M.predicted herve g non-blacks MDRD (S/P/Bld) [Vol rate/Area]Ordered By: Anabel Horne on 07-07-2024 Estimated GFR (MDRD) Non-Af Amer 41 Low >60 [facility] Comment on above: mL/min/1.73m2 CKD-EP I Creatinine Equation (2020) Glomerular filtration rate ( GFR) estimation/1.73 sq m using serum, plasma, or whole bOrdered By: Anabel Horne on 07-07-2024 GFR/1.73 sq M.predicted among non-blacks MDRD (S/P/Bld) [Vol rate/Area] 41 mL/min/{1.73_m2} Low >60 [facility] Comment on above: mL/min/1.73m2 CKD-EP I Creatinine Equation (2020) Potassium (Unsp spec) [Mass/ Vol]Ordered By: Anabel Horne on 07-07-2024 Potassium [Moles/Vol] 4.3 mmol/L 3.3-5.1 [facility] Potassium measurement (mass/ volume)Ordered By: Anabel Horne on 07-07-2024 Potassium (Unsp spec) [Mass/Vol] 4.3 mmol/L 3.3-5.1 [facility] Serum creatinine measurement (mass/volume)Ordered By: Anabel Horne on 07-07-2024 Creatinine [Mass/Vol] 1.30 mg/dL High 0.70-1.20 [facility] Serum glucose measurement (m ass/volume)Ordered By: Anabel Horne on 07-07-2024 Glucose [Mass/Vol] 99 mg/dL 70-99 [facility] Serum or plasma calcium julee urement (mass/volume)Ordered By: Anabel Horne on 07-07-2024 Calcium [Mass/Vol] 9.5 mg/dL 7.6-11.0 [facility] Serum or plasma urea nitroge n measurement (mass/volume)Ordered By: Anabel Horne on 07-07-2024 Urea nitrogen [Mass/Vol] 35 mg/dL High 4-19 [facility] Sodium levelOrdered By: Thien Horne on 07-07-2024 Sodium [Moles/Vol] 137 mmol/L 133-145 [facility] Carotid Duplex Ultrasoundon 07-03-2024 Carotid Duplex Ultrasound Normal [facility] Duplex ultrasound of carotid artery reportOrdered By: Virgil Her on 07-03-2024 Study report [facility] [address] [place] [address] Carotid Duplex Ultrasound 07/03/24 1246 MR#: [id number] Acct: [id number] Name: MICHAEL MEIER Rep #:[id number] : 1940 84 From: Virgil Souza [...] the left vertebral artery. Procedure Carotid Duplex 01634. This is a Carotid Duplex examination using [...] Date Dictated: 07/03/24 1246 Date Transcribed: 07/03/241805 Make Up Artist: Signed [facility] Work Phone: Priscila 06-26-2024 [facility] Telephone (FAMPWS) MICHAEL MEIER ([id number]) 1940 F Date Time Provider Department 06/26/24 [facility] During your visit today, we recorded the [...] reports provider was going to check with [facility] about taking it since it can cause SOB. Please review and advise, GLYNN Montiel Jordan L, DO 06/28/2024 10:38 AM Signed Please call her mechanical integrity engineer office at [facility] and see if they are concerned with her shortness of breath and respirator symptoms potentially being secondary to SE from Amiodarone and if any options to change this anti arrhythmic on their end? DO Rodrigo Dow Brittany L, MA 06/28/2024 11:40 AM Signed Printed telephone encounter with cover sheet AND faxed to Dr. Hickey [phone]. Advised on cover sheet to respond with mechanical integrity engineer's recommendations. Will wait for fax back. Renea [...] included)... Normal [facility] CNOVon 06-21-2024 CNOV Office Visit (FAMPWS ) MICHAEL MEIER ([id number]) 1940 F Date Time Provider Department 06/21/24 [...] and albuterol. She has been seen by [facility] as well as Dr. Hickey/Narcotics Investigator at [facility] for follow up after discharge home. [...] COMPARTMENTS 11/15/2009 Knee replacement, total -Left - [facility] ARTHRP BARRYE CONDYLEANDPLATU MEDIALANDLAT COMPARTMENTS 12/30/2009 Right knee replaced COLONOSCOPY FLX DX W/COLLJ SPEC WHEN PFRMD 06/29/2017 Colonoscopy EGD 10/17/2020 EGD W/O [facility] SPEC VARICIES INJ 01/08/2022 EGD W/O [facility] SPEC VARICIES INJ 03/31/2024 [facility] ESOPHAGOGASTRODUODENOSCOPY TRANSORAL [...] - Mo (more content not included)... [facility]HAEL [facility]IER ([id number]) 1940 F Date Time Provider Department 06/06/24 MICHAEL PUGA [facility] During your visit today, we recorded the following information about you: Constance Ervin LPN 06/06/2024 11:54 AM Signed Pt calls for lab results done at [facility] on 06/02/24. Results are scanned in [...] included)... Normal [facility] Albumin to globulin ratioOrd ered By: Michael Puga on 06-02-2024 Albumin/Globulin [Mass ratio] 1.0 {ratio} 0.9-2.4 [facility] Bilirubin, totalOrdered By: Michael Puga on 06-02-2024 Bilirubin [Mass/Vol] 0.60 mg/dL 0.20-1.00 [facility] Comment on above: For patients on eltr ombopag therapy, use of [employer] [place] TBIL is not recommended. Blood urea nitrogen (BUN)/cr eatinine ratioOrdered By: Michael Puga on 06-02-2024 Urea nitrogen/Creatinine [Mass ratio] 33.2 mg/mg High 10-20 [facility] Carbon dioxide measurementOr dered By: Michael Puga on 06-02-2024 CO2 [Moles/Vol] 29.0 mmol/L 21.0-32.0 [facility] Chloride measurementOrdered By: Michael Puga on 06-02-2024 Chloride [Moles/Vol] 99 mmol/L 98-107 [facility] Comprehensive Metabolic Prof ilon 06-02-2024 Albumin [Mass/Vol] 3.3 g/dL Normal 3.2-5.0 [facility] Comment on above: Performed By: #### L 500.4050 ####[facility] [address] [place], [address] Albumin/Globulin [Mass ratio] 1.0 {ratio} Normal 0.9-2.4 [facility] Comment on above: Performed By: #### L 500.4050 ####[facility] [address] [place], [address] ALK P 85 U/L Normal 45-117 [facility] Comment on above: Performed By: #### L 500.4050 ####[facility] [address] [place], [address] ALT [Catalytic activity/Vol] 84 U/L High 13-56 [facility] Comment on above: Performed By: #### L 500.4050 ####[facility] [address] [place], [address] AST [Catalytic activity/Vol] 51 U/L High 15-37 [facility] Comment on above: Performed By: #### L 500.4050 ####[facility] [address] [place], [address] Bilirubin [Mass/Vol] 0.60 mg/dL Normal 0.20-1.00 [facility] Comment on above: Result Comment: For patients on eltrombopag therapy, use of [employer] [place] TBIL is not recommended. Performed By: #### L 500.4050 ####[facility] [address] [place], [address] BUN/CRE 33.2 RATIO High 10-20 [facility] Comment on above: Performed By: #### L 500.4050 ####[facility] [address] [place], [address] CA,Total 9.1 mg/dL Normal 8.5-10.1 [facility] Comment on above: Performed By: #### L 500.4050 ####[facility] [address] [place], [address] Chloride [Moles/Vol] 99 mmol/L Normal 98-107 [facility] Comment on above: Performed By: #### L 500.4050 ####[facility] [address] [place], [address] CO2 [Moles/Vol] 29.0 mmol/L Normal 21.0-32.0 [facility] Comment on above: Performed By: #### L 500.4050 ####[facility] [address] [place], [address] Creatinine [Mass/Vol] 0.87 mg/dL Normal 0.55-1.02 [facility] Comment on above: Result Comment: The validity of the calculated GFR GFRAA in patients over70 years has not been determined. Clinical correlation isessential. Performed By: #### L 500.4050 ####[facility] [address] [place], [address] EST GFR - AA 80 mL/min Normal >60 [facility] Comment on above: Result Comment: Afri can Malaysian GFR Calc Performed By: #### L 500.4050 ####[facility] [address] [place], [address] GAP 6 Normal 5-15 [facility] Comment on above: Performed By: #### L 500.4050 ####[facility] [address] [place], [address] GFR/1.73 sq M.predicted among non-blacks MDRD (S/P/Bld) [Vol rate/Area] 66 mL/min/{1.73_m2} Normal >60 [facility] Comment on above: Result Comment: Non- GFR Calc Performed By: #### L 500.4050 ####[facility] [address] [place], [address] Globulin (S) [Mass/Vol] 3.4 g/dL Normal 2.2-4.2 [facility] Comment on above: Performed By: #### L 500.4050 ####[facility] [address] [place], [address] Glucose [Mass/Vol] 99 mg/dL Normal 74-106 [facility] Comment on above: Performed By: #### L 500.4050 ####[facility] [address] [place], [address] Potassium [Moles/Vol] 5.1 mmol/L Normal 3.5-5.1 [facility] Comment on above: Performed By: #### L 500.4050 ####[facility] [address] [place], [address] Sodium [Moles/Vol] 133 mmol/L Low 136-145 [facility] Comment on above: Performed By: #### L 500.4050 ####[facility] [address] [place], [address] T PROT 6.7 g/dL Normal 6.4-8.2 [facility] Comment on above: Performed By: #### L 500.4050 ####[facility] [address] [place], [address] Urea nitrogen [Mass/Vol] 29 mg/dL High 7-18 [facility] Comment on above: Performed By: #### L 500.4050 ####[facility] [address] [place], [address] Estimated glomerular filtrat ion rate (GFR) AmericanOrdered By: Michael Puga on 06-02-2024 Estimated GFR (MDRD) Amer 80 mL/min >60 [facility] Comment on above: GFR Calc Glomerular filtration rate ( GFR) estimationOrdered By: Michael Puga on 06-02-2024 Estimated GFR (MDRD) Non-Af Amer 66 mL/min >60 [facility] Comment on above: Non- GFR Calc Glucose measurementOrdered B y: Michael Puga on 06-02-2024 Glucose [Mass/Vol] 99 mg/dL 74-106 [facility] Laboratory - Chemistry and C hemistry - challengeOrdered By: Michael Puga on 06-02-2024 AST [Catalytic activity/Vol] 51 U/L High 15-37 [facility] Potassium measurementOrdered By: Michael Puga on 06-02-2024 Potassium [Moles/Vol] 5.1 mmol/L 3.5-5.1 [facility] Serum anion gap measurementO rdered By: Michael Puga on 06-02-2024 Anion gap [Moles/Vol] 6 mmol/L 5-15 [facility] Serum globulin measurementOr dered By: Michael Puga on 06-02-2024 Globulin (S) [Mass/Vol] 3.4 g/dL 2.2-4.2 [facility] Serum or plasma alanine sprague otransferase (ALT) measurementOrdered By: Michael Puga on 06-02-2024 ALT [Catalytic activity/Vol] 84 U/L High 13-56 [facility] Serum or plasma albumin julee urement (mass/volume)Ordered By: Michael Puga on 06-02-2024 Albumin [Mass/Vol] 3.3 g/dL 3.2-5.0 [facility] Serum or plasma alkaline rachel sphatase measurementOrdered By: Michael Puga on 06-02-2024 ALP [Catalytic activity/Vol] 85 U/L 45-117 [facility] Serum or plasma calcium julee urement (mass/volume)Ordered By: Michael Puga on 06-02-2024 Calcium [Mass/Vol] 9.1 mg/dL 8.5-10.1 [facility] Serum or plasma creatinine m easurement (mass/volume)Ordered By: Michael Puga on 06-02-2024 Creatinine [Mass/Vol] 0.87 mg/dL 0.55-1.02 [facility] Comment on above: The validity of the calculated GFR & GFRAA in patients over 70 years has not been determined. Clinical correlation is essential. Serum or plasma urea nitroge n measurement (mass/volume)Ordered By: Michael Puga on 06-02-2024 Urea nitrogen [Mass/Vol] 29 mg/dL High 7-18 [facility] Sodium levelOrdered By: Susanna Puga on 06-02-2024 Sodium [Moles/Vol] 133 mmol/L Low 136-145 [facility] Total proteinOrdered By: Vance Puga on 06-02-2024 Protein [Mass/Vol] 6.7 g/dL 6.4-8.2 [facility] Cardiology Visit Reporton Cardiology Visit Report Normal [facility] Pacemaker Checkon 06-01-2024 Pacemaker Check Normal [facility] CNPNon 05-30-2024 CNPN Telephone (FAMPWS) MICHAEL MEIER ([id number]) 1940 F Date Time Provider Department 05/30/24 MICHAEL PUGA FAMPWS During your visit today, we recorded the following information about you: Loli Adamson RN 05/30/2024 8:31 AM Signed Pt reports she had a CMP done at [facility] on 05/25/24 to check her kidneys and glucose. We received a BNP and CBC from [facility] under labs. Do not see a CMP. Patient asking Key to review and advise. Key Portillo APRN.CARMELINA 05/31/2024 7:36 AM Signed I don't see CMP results either. Can we call [facility] and confirm this was drawn. If not, have her get it done. Thank you, Key Portillo APRN.Amanda Heath RN 05/31/2024 10:09 AM Signed Qing with [facility] calls in regards to below. CMP was not completed. Re-faxed ordered to [facility] lab and Qing will add a nurse visit for this week to collect specimen as soon as possible. GLYNN Montiel Alyson Taylor, APRN.CARMELINA 05/31/2024 10:45 AM Signed Noted. Thank you, Key Portillo APRN.[facility] Allergies As of Date: 05/30/2024 Noted [...] included)... Normal [facility] BNP (brain natriuretic pepti de measurement)Ordered By: Michael Puga on 05-25-2024 Natriuretic peptide B (Bld) [Mass/Vol] 33.8 pg/mL 0-100 [facility] BNP,B-Type NATRIURETIC PEPTI Kenyatta 05-25-2024 Natriuretic peptide B (Bld) [Mass/Vol] 33.8 pg/mL Normal 0-100 [facility] Comment on above: Performed By: #### L 100.0500, L503.6620 ####[facility] [address] [place], [address] CBC-Complete Blood Cnt No Di ffon 05-25-2024 Erythrocyte distribution width (RBC) [Ratio] 15.5 % High 11.6-14.6 [facility] Comment on above: Performed By: #### L 100.0500, L503.6620 ####[facility] [address] [place], [address] Hematocrit (Bld) [Volume fraction] 37.3 % Normal 37-47 [facility] Comment on above: Performed By: #### L 100.0500, L503.6620 ####[facility] [address] [place], [address] Hemoglobin (Bld) [Mass/Vol] 12.6 g/dL Normal 12.0-15.0 [facility] Comment on above: Performed By: #### L 100.0500, L503.6620 ####[facility] [address] [place], [address] MCH (RBC) [Entitic mass] 28.4 pg Normal 27.0-32.0 [facility] Comment on above: Performed By: #### L 100.0500, L503.6620 ####[facility] [address] [place], [address] MCHC (RBC) [Mass/Vol] 33.8 g/dL Normal 32-36 [facility] Comment on above: Performed By: #### L 100.0500, L503.6620 ####[facility] [address] [place], [address] MCV (RBC) [Entitic vol] 84.0 fL Normal 81-99 [facility] Comment on above: Performed By: #### L 100.0500, L503.6620 ####[facility] [address] [place], [address] Platelet mean volume (Bld) [Entitic vol] 11.1 fL Normal 6.2-12.0 [facility] Comment on above: Performed By: #### L 100.0500, L503.20 ####[facility] [address] [place], [address] Platelets (Bld) [#/Vol] 256 10*3/uL Normal 150-450 [facility] Comment on above: Performed By: #### L 100.0500, L503.6620 ####[facility] [address] [place], [address] RBC (Bld) [#/Vol] 4.44 10*6/uL Normal 4.2-5.[address] [facility] Comment on above: Performed By: #### L 100.0500, L503.6620 ####[facility] [address] [place], [address] RDW SD 47.2 fl High 35.1-43.9 [facility] Comment on above: Performed By: #### L 100.0500, L503.6620 ####[facility] [address] [place], [address] WBC (Bld) [#/Vol] 10.3 10*3/uL Normal 4.4-11.[address] [facility] Comment on above: Performed By: #### L 100.0500, L503.6620 ####[facility] [address] [place], [address] CNPChasity 05-25-2024 CNPN Telephone (FAMPWS) MICHAEL MEIER ([id number]) 1940 F Date Time Provider Department 05/25/24 [facility] During your visit today, we recorded the following information about you: July Marcano, GLYNN 05/25/2024 9:51 AM Signed Bhavna MAKI CM with [facility] called in and reports Pt had been taken off her Hydrochlorothiazide per Cardiology for a while, but the last time she was in the hospital she was put back on 12.5 mg. She states the Pt is going to need a script called in if she is to be taking them to [facility]. I told her I didn't see the [...] morning. Please call and advise. Key Portillo APRN.PERFORMANCE IMPROVEMENT COORDINATOR 05/25/2024 10:05 AM Signed I would like patient to take medication and then recheck BP. BP was WNL at appointment on 05/11. I see from discharge instructions from [facility] that she was taking HCTZ at that time. I would recommend staying on HCTZ regimen at this. Rx sent to pharmacy. Does she still have cards appointment with Dr. Hickey on 06/01 -- if so, they can decide if they want to keep her on this medication or not at that time. Thank you, Key Portillo APRN.PERFORMANCE IMPROVEMENT COORDINATOR The following approved medication requests have been transmitted electronically. Requested Prescriptions Signed Prescriptions Disp Refills hydroCHLOROthiazide 12.5 mg capsule 90 capsule 0 Sig: Take 1 capsule by mouth once daily. Authorizing Provider: KEY PORTILLO APRN.PERFORMANCE IMPROVEMENT COORDINATOR Marisol Cano LPN 05/25/2024 10:17 AM Signed [...] for Visit: Patient Update [1234] Medication Question [4878] Order(s):hydroCHLOROthiazide 12.5 mg capsuleTake 1 capsule by [...] included)... Normal [facility] Erythrocyte distribution wid th ratioOrdered By: Michael Puga on 05-25-2024 Erythrocyte distribution width (RBC) [Ratio] 15.5 % High 11.6-14.6 [facility] Erythrocyte distribution wid th standard deviationOrdered By: Michael Puga on 05-25-2024 Erythrocyte distribution width (RBC) [Entitic vol] 47.2 fL High 35.1-43.9 [facility] Hematocrit Auto (Bld) [Volum e fraction]Ordered By: Michael Puga on 05-25-2024 Hematocrit (Bld) [Volume fraction] 37.3 % 37-47 [facility] Hemoglobin measurementOrdere d By: Michael Puga on 05-25-2024 Hemoglobin (Bld) [Mass/Vol] 12.6 g/dL 12.0-15.0 [facility] MCV (mean corpuscular volume ) determinationOrdered By: Michael Puga on 05-25-2024 MCV (RBC) [Entitic vol] 84.0 fL 81-99 [facility] Mean corpuscular hemoglobin (MCH) determinationOrdered By: Michael Puga on 05-25-2024 MCH (RBC) [Entitic mass] 28.4 pg 27.0-32.0 [facility] Mean corpuscular hemoglobin concentration (MCHC) determinationOrdered By: Michael Puga on 05-25-2024 MCHC (RBC) [Mass/Vol] 33.8 g/dL 32-36 [facility] Mean platelet volume determi nationOrdered By: Michael Puga on 05-25-2024 Platelet mean volume (Bld) [Entitic vol] 11.1 fL 6.2-12.0 [facility] Platelet countOrdered By: Nellie Puga on 05-25-2024 Platelets (Bld) [#/Vol] 256 10*3/uL 150-450 [facility] RBC Auto (Bld) [#/Vol]Ordere d By: Michael Puga on 05-25-2024 RBC (Bld) [#/Vol] 4.44 10*6/uL 4.2-5.[address] [facility] White blood cell (WBC) count Ordered By: Michael Puga on 05-25-2024 WBC (Bld) [#/Vol] 10.3 10*3/uL 4.4-11.[address] [facility] Bilirubin, Directon 05-19-19 25 Bilirubin.direct [Mass/Vol] 0.28 mg/dL Normal 0.00-0.30 [facility] Comment on above: Performed By: #### L 500.4050, L100.0500, L501.4700, L503.6620 ####[facility] [address] [place], [address] Priscila 05-19-2024 LORRI Telephone (FAMPWS) MICHAEL MEIER ([id number]) 1940 F Date Time Provider Department 05/19/24 MICHAEL PUGA FAMPWS During your visit today, we recorded the following information about you: Chloe Castro LPN 05/19/2024 12:22 PM Signed Pt calling for results of lab work she had done in her home yesterday, Results are I Epic. Please advise pt. CAROLINE Ramirez Alyson Taylor, APRN.PERFORMANCE IMPROVEMENT COORDINATOR 05/19/2024 2:40 PM Signed Please let patient [...] 05/22/2024 12:31 PM Signed Marifer nurse with [facility] calling regarding recently ordered lab orders. Information provided and lab orders faxed to [facility]. Tameka Marin RN Allergies As of [...] [I50.9] Order(s):NT PRO BNP [SQNTBNP] Order #: [id number] FUTURE COMPREHENSIVE METABOLIC PANEL [SQCMP] Order #: [id number] FUTURE Prescriptions as of 05/22/2024 - furosemide [...] included)... Normal [facility] BNP (brain natriuretic pepti de measurement)Ordered By: Michael Puga on 05-18-2024 Natriuretic peptide B (Bld) [Mass/Vol] 38.6 pg/mL 0-100 [facility] BNP,B-Type NATRIURETIC PEPTI Kenyatta 05-18-2024 Natriuretic peptide B (Bld) [Mass/Vol] 38.6 pg/mL Normal 0-100 [facility] Comment on above: Performed By: #### L 500.4050, L100.0500, L501.4700, L503.6620 ####[facility] [address] [place], [address] Bilirubin directOrdered By: Michael Puga on 05-18-2024 Bilirubin.direct [Mass/Vol] 0.28 mg/dL 0.00-0.30 [facility] CBC-Complete Blood Cnt No Di ffon 05-18-2024 Erythrocyte distribution width (RBC) [Ratio] 15.9 % High 11.6-14.6 [facility] Comment on above: Performed By: #### L 500.4050, L100.0500, L501.4700, L503.6620 ####[facility] [address] [place], [address] Hematocrit (Bld) [Volume fraction] 35.5 % Low 37-47 [facility] Comment on above: Performed By: #### L 500.4050, L100.0500, L501.4700, L503.6620 ####[facility] [address] [place], [address] Hemoglobin (Bld) [Mass/Vol] 11.6 g/dL Low 12.0-15.0 [facility] Comment on above: Performed By: #### L 500.4050, L100.0500, L501.4700, L503.6620 ####[facility] [address] [place], [address] MCH (RBC) [Entitic mass] 27.8 pg Normal 27.0-32.0 [facility] Comment on above: Performed By: #### L 500.4050, L100.0500, L501.4700, L503.6620 ####[facility] [address] [place], [address] MCHC (RBC) [Mass/Vol] 32.7 g/dL Normal 32-36 [facility] Comment on above: Performed By: #### L 500.4050, L100.0500, L501.4700, L503.6620 ####[facility] [address] [place], [address] MCV (RBC) [Entitic vol] 84.9 fL Normal 81-99 [facility] Comment on above: Performed By: #### L 500.4050, L100.0500, L501.4700, L503.6620 ####[facility] [address] [place], [address] Platelet mean volume (Bld) [Entitic vol] 11.0 fL Normal 6.2-12.0 [facility] Comment on above: Performed By: #### L 500.4050, L100.0500, L501.4700, L503.6620 ####[facility] [address] [place], [address] Platelets (Bld) [#/Vol] 263 10*3/uL Normal 150-450 [facility] Comment on above: Performed By: #### L 500.4050, L100.0500, L501.4700, L503.6620 ####[facility] [address] [place], [address] RBC (Bld) [#/Vol] 4.18 10*6/uL Low 4.2-5.[address] [facility] Comment on above: Performed By: #### L 500.4050, L100.0500, L501.4700, L503.6620 ####[facility] [address] [place], [address] RDW SD 48.9 fl High 35.1-43.9 [facility] Comment on above: Performed By: #### L 500.4050, L100.0500, L501.4700, L503.6620 ####[facility] [address] [place], [address] WBC (Bld) [#/Vol] 9.2 10*3/uL Normal 4.4-11.0 [facility] Comment on above: Performed By: #### L 500.4050, L100.0500, L501.4700, L503.6620 ####[facility] [address] [place], [address] Comprehensive Metabolic Prof [facility] 05-18-2024 Albumin [Mass/Vol] 3.4 g/dL Normal 3.2-5.0 [facility] Comment on above: Performed By: #### L 500.4050, L100.0500, L501.4700, L503.6620 ####[facility] [address] [place], [address] Albumin/Globulin [Mass ratio] 1.1 {ratio} Normal 0.9-2.4 [facility] Comment on above: Performed By: #### L 500.4050, L100.0500, L501.4700, L503.6620 ####[facility] [address] [place], [address] ALK P 77 U/L Normal 45-117 [facility] Comment on above: Performed By: #### L 500.4050, L100.0500, L501.4700, L503.6620 ####[facility] [address] [place], [address] ALT [Catalytic activity/Vol] 30 U/L Normal 13-56 [facility] Comment on above: Performed By: #### L 500.4050, L100.0500, L501.4700, L503.6620 ####[facility] [address] [place], [address] AST [Catalytic activity/Vol] 25 U/L Normal 15-37 [facility] Comment on above: Performed By: #### L 500.4050, L100.0500, L501.4700, L503.6620 ####[facility] [address] [place], [address] Bilirubin [Mass/Vol] 1.00 mg/dL Normal 0.20-1.00 [facility] Comment on above: Result Comment: For patients on eltrombopag therapy, use of Dimension [place] TBIL is not recommended. Performed By: #### L 500.4050, L100.0500, L501.4700, L503.6620 ####[facility] [address] [place], [address] BUN/CRE 26.7 RATIO High 10-20 [facility] Comment on above: Performed By: #### L 500.4050, L100.0500, L501.4700, L503.6620 ####[facility] [address] [place], [address] CA,Total 9.0 mg/dL Normal 8.5-10.1 [facility] Comment on above: Performed By: #### L 500.4050, L100.0500, L501.4700, L503.6620 ####[facility] [address] [place], [address] Chloride [Moles/Vol] 90 mmol/L Low 98-107 [facility] Comment on above: Performed By: #### L 500.4050, L100.0500, L501.4700, L503.6620 ####[facility] [address] [place], [address] CO2 [Moles/Vol] 29.0 mmol/L Normal 21.0-32.0 [facility] Comment on above: Performed By: #### L 500.4050, L100.0500, L501.4700, L503.6620 ####[facility] [address] [place], [address] Creatinine [Mass/Vol] 1.05 mg/dL High 0.55-1.02 [facility] Comment on above: Result Comment: The validity of the calculated GFR GFRAA in patients over70 years has not been determined. Clinical correlation isessential. Performed By: #### L 500.4050, L100.0500, L501.4700, L503.6620 ####[facility] [address] [place], [address] EST GFR - AA 64 mL/min Normal >60 [facility] Comment on above: Result Comment: Afri can [place] GFR Calc Performed By: #### L 500.4050, L100.0500, L501.4700, L503.6620 ####[facility] [address] [place], [address] GAP 9 Normal 5-15 [facility] Comment on above: Performed By: #### L 500.4050, L100.0500, L501.4700, L503.6620 ####[facility] [address] [place], [address] GFR/1.73 sq M.predicted among non-blacks MDRD (S/P/Bld) [Vol rate/Area] 53 mL/min/{1.73_m2} Low >60 [facility] Comment on above: Result Comment: Non- GFR Calc Performed By: #### L 500.4050, L100.0500, L501.4700, L503.6620 ####[facility] [address] [place], [address] Globulin (S) [Mass/Vol] 3.1 g/dL Normal 2.2-4.2 [facility] Comment on above: Performed By: #### L 500.4050, L100.0500, L501.4700, L503.6620 ####[facility] [address] [place], [address] Glucose [Mass/Vol] 99 mg/dL Normal 74-106 [facility] Comment on above: Performed By: #### L 500.4050, L100.0500, L501.4700, L503.6620 ####[facility] [address] [place], [address] Potassium [Moles/Vol] 4.0 mmol/L Normal 3.5-5.1 [facility] Comment on above: Performed By: #### L 500.4050, L100.0500, L501.4700, L503.6620 ####[facility] [address] [place], [address] Sodium [Moles/Vol] 128 mmol/L Low 136-145 [facility] Comment on above: Performed By: #### L 500.4050, L100.0500, L501.4700, L503.6620 ####[facility] [address] [place], [address] T PROT 6.5 g/dL Normal 6.4-8.2 [facility] Comment on above: Performed By: #### L 500.4050, L100.0500, L501.4700, L503.6620 ####[facility] [address] [place], [address] Urea nitrogen [Mass/Vol] 28 mg/dL High 7-18 [facility] Comment on above: Performed By: #### L 500.4050, L100.0500, L501.4700, L503.6620 ####[facility] [address] [place], [address] Erythrocyte distribution wid th ratioOrdered By: Michael Puga on 05-18-2024 Erythrocyte distribution width (RBC) [Ratio] 15.9 % High 11.6-14.6 [facility] Erythrocyte distribution wid th standard deviationOrdered By: Michael Puga on 05-18-2024 Erythrocyte distribution width (RBC) [Entitic vol] 48.9 fL High 35.1-43.9 [facility] Hematocrit Auto (Bld) [Volum e fraction]Ordered By: Michael Puga on 05-18-2024 Hematocrit (Bld) [Volume fraction] 35.5 % Low 37-47 [facility] Hemoglobin measurementOrdere d By: Michael Puga on 05-18-2024 Hemoglobin (Bld) [Mass/Vol] 11.6 g/dL Low 12.0-15.0 [facility] MCV (mean corpuscular volume ) determinationOrdered By: Michael Puga on 05-18-2024 MCV (RBC) [Entitic vol] 84.9 fL 81-99 [facility] Mean corpuscular hemoglobin (MCH) determinationOrdered By: Michael Puga on 05-18-2024 MCH (RBC) [Entitic mass] 27.8 pg 27.0-32.0 [facility] Mean corpuscular hemoglobin concentration (MCHC) determinationOrdered By: Michael Puga on 05-18-2024 MCHC (RBC) [Mass/Vol] 32.7 g/dL 32-36 [facility] Mean platelet volume determi nationOrdered By: Michael Puga on 05-18-2024 Platelet mean volume (Bld) [Entitic vol] 11.0 fL 6.2-12.0 [facility] Platelet countOrdered By: Nellie Puga on 05-18-2024 Platelets (Bld) [#/Vol] 263 10*3/uL 150-450 [facility] RBC Auto (Bld) [#/Vol]Ordere d By: Michael Puga on 05-18-2024 RBC (Bld) [#/Vol] 4.18 10*6/uL Low 4.2-5.[address] [facility] White blood cell (WBC) count Ordered By: Michael Puga on 05-18-2024 WBC (Bld) [#/Vol] 9.2 10*3/uL 4.4-11.0 [facility] CNPNon 05-16-2024 CNPN Telephone (FAMPWS) MICHAEL MEIER ([id number]) 1940 F Date Time Provider Department 05/16/24 MICHAEL PUGA [facility] During your visit today, we recorded the following information about you: Amanda Pratt RN 05/16/2024 10:26 AM Signed Bhavna with [facility] calls to report duplicate therapy between lasix and spironolactone and lasix and hydralazine. Bhavna is asking if provider wants all medications continued. Hydralazine and Spironolactone are on current medication list but prescription not sent to pharmacy. Please review and advise. Bhavna is requesting a call back at [phone]. GLYNN Montiel Jordan L, DO 05/17/2024 9:02 AM Signed Please clarify with pharmacy and patient her current diuretic/BLOOD PRESSURE medications that she is picking up and taking Marcie Rodriguez LPN 05/17/2024 9:50 AM Signed Phoned [facility] pharmacy with clarification on current meds. Spironolactone 25 mg daily was prescribed by the [facility] also hydralazine 25 mg was prescribed by [facility] [place] [facility]. Lasix 20 mg was just prescribed by Key Portillo, then Lasix 40 mg was prescribed by [facility] May 02. Left message with Bhavna [facility] about above information. Please review [...] if she can. Pt will go to [place] and get it drawn in the [...] GLYNN 05/18/2024 10:04 AM Signed Bhavna MAKI [facility] called in and reports Pt [...] she was able to drawn. Key Portillo APRN.PERFORMANCE IMPROVEMENT COORDINATOR 05/18/2024 10:50 AM Signed Most important is CMP to have drawn if able. Agree with below. Pt needs to discontinue lasix all together. This was ordered by [facility] after recent admission for new onset CHF exacerbation. Initially ordered for 40 mg daily, I decreased to 20 mg daily after kidney function was so poor and told pt to repeat labs in 5 days with plan to discontinue all together if swelling and weight gain remained stable with decreased. Thank you, Key Bond (more content not included)... Normal [facility] 05-12-2024 CARMELINAN Telephone (FAMPWS) MICHAEL MEIER ([id number]) 1940 F Date Time Provider Department 05/12/24 [...] that time. Pt verbalizes understanding. Key Portillo APRN.PERFORMANCE IMPROVEMENT COORDINATOR 05/12/2024 2:23 PM Signed Agree with below. We are repeating BNP lab work in 5-7 days as well to check for this. Thank you, Key Portillo APRN.PERFORMANCE IMPROVEMENT COORDINATOR Allergies As of Date: 05/12/2024 Noted Allergy [...] Fully Assessed Reason for Visit: Patient Question [3637] Prescriptions as of 05/12/2024 - furosemide (LASIX) [...] [L82.0] 12/01/2013 (more content not included)... [facility] ([id number]) 1940 F Date Time Provider Department 05/12/24 [...] yesterday in appointment but nothing was at [facility] in [place] when she went. Key Portillo APRN.CNP 05/12/2024 [...] 0 HEPATIC FUNCTION PNL [SQHFP] Order #: [id number] FUTURE COMPLETE BLOOD COUNT AND DIFFERENTIAL [SQCBCDIF] Order #: [id number] FUTURE NT PRO BNP [SQNTBNP] Order #: [id number] FUTURE LORazepam (ATIVAN) 0.5 mgTake 1 tablet [...] included)... Normal [facility] CBC W Auto Differential pane l (Bld)on 05-11-2024 Basophils (Bld) [#/Vol] 0.09 10*3/uL [facility] Basophils/100 WBC (Bld) 0.7 % [facility] Differential cell count method Nom (Bld) Auto [facility] Eosinophils (Bld) [#/Vol] 0.21 10*3/uL [facility] Eosinophils/100 WBC (Bld) 1.7 % [facility] Erythrocyte distribution width (RBC) [Ratio] 16.6 % High 11.5 - 15.0 % [facility] Hematocrit (Bld) [Volume fraction] 42.0 % 36.0 - 46.0 % [facility] Hemoglobin (Bld) [Mass/Vol] 13.4 g/dL 11.5 - 15.5 g/dL [facility] Immature granulocytes (Bld) [#/Vol] 0.05 10*3/uL [facility] Immature granulocytes/100 WBC (Bld) 0.4 % [facility] Interpretation and review of laboratory results Abnormal [facility] Lymphocytes (Bld) [#/Vol] 1.48 10*3/uL [facility] Lymphocytes/100 WBC (Bld) 12.3 % [facility] MCH (RBC) [Entitic mass] 27.2 pg 26.0 - 34.0 pg [facility] MCHC (RBC) [Mass/Vol] 31.9 g/dL 30.5 - 36.0 g/dL [facility] MCV (RBC) [Entitic vol] 85.2 fL 80.0 - 100.0 fL [facility] Monocytes (Bld) [#/Vol] 1.05 10*3/uL [facility] Monocytes/100 WBC (Bld) 8.7 % [facility] Neutrophils (Bld) [#/Vol] 9.14 10*3/uL High [facility] Neutrophils/100 WBC (Bld) 76.2 % [facility] Nucleated RBC (Bld) [#/Vol] NINF [facility] Nucleated RBC/100 WBC (Bld) [Ratio] 0.0 % /100 WBC [facility] Platelet mean volume (Bld) [Entitic vol] 11.3 fL 9.0 - 12.7 fL [facility] Platelets (Bld) [#/Vol] 346 10*3/uL [facility] RBC (Bld) [#/Vol] 4.93 10*6/uL 3.90 - 5.20 m/uL [facility] WBC (Bld) [#/Vol] 12.02 10*3/uL High [facility] Basophils (Bld) [#/Vol] 0.09 10*3/uL Normal <0.11 [facility] Comment on above: Order Comment: Speci men Type: BLOOD SPECIMENOrdering Facility: [facility] Address: [address] [place] [address] Performed By: #### 5 7021-8 ####[facility] LABCLIA [id number] [place] [address] [place] Basophils/100 WBC (Bld) 0.7 % Normal [facility] Comment on above: Order Comment: Speci men Type: BLOOD SPECIMENOrdering Facility: [facility] Address: [address] [place] [address] Performed By: #### 5 7021-8 ####[facility] LABCLIA [id number] [place] [address] [place] Differential cell count method Nom (Bld) Auto Normal [facility] Comment on above: Order Comment: Speci men Type: BLOOD SPECIMENOrdering Facility: [facility] Address: [address] [place] [address] Performed By: #### 5 7021-8 ####[facility] LABCLIA [id number] [place] [address] [place] Eosinophils (Bld) [#/Vol] 0.21 10*3/uL Normal <0.46 [facility] Comment on above: Order Comment: Speci men Type: BLOOD SPECIMENOrdering Facility: [facility] Address: [address] [place] [address] Performed By: #### 5 7021-8 ####[facility] LABIA [id number] [place] [address] [place] Eosinophils/100 WBC (Bld) 1.7 % Normal [facility] Comment on above: Order Comment: Speci men Type: BLOOD SPECIMENOrdering Facility: [facility] Address: [address] [place] [address] Performed By: #### 5 7021-8 ####[facility] LABIA [id number] [place] [address] [place] Erythrocyte distribution width (RBC) [Ratio] 16.6 % High 11.5-15.0 [facility] Comment on above: Order Comment: Speci men Type: BLOOD SPECIMENOrdering Facility: [facility] Address: [address] [place] [address] Performed By: #### 5 7021-8 ####[facility] LABCLIA [id number] [place] [address] [place] Hematocrit (Bld) [Volume fraction] 42.0 % Normal 36.0-46.0 [facility] Comment on above: Order Comment: Speci men Type: BLOOD SPECIMENOrdering Facility: [facility] Address: [address] [place] [address] Performed By: #### 5 7021-8 ####[facility] LABCLIA [id number] [place] [address] [place] Hemoglobin (Bld) [Mass/Vol] 13.4 g/dL Normal 11.5-15.5 [facility] Comment on above: Order Comment: Speci men Type: BLOOD SPECIMENOrdering Facility: [facility] Address: [address] [place] [address] Performed By: #### 5 7021-8 ####[facility] LABCLIA [id number] [place] [address] [place] Immature granulocytes (Bld) [#/Vol] 0.05 10*3/uL Normal <0.10 [facility] Comment on above: Order Comment: Speci men Type: BLOOD SPECIMENOrdering Facility: [facility] Address: [address] [place] [address] Performed By: #### 5 7021-8 ####[facility] LABCLIA [id number] [place] [address] [place] Immature granulocytes/100 WBC (Bld) 0.4 % Normal [facility] Comment on above: Order Comment: Speci men Type: BLOOD SPECIMENOrdering Facility: [facility] Address: [address] [place] [address] Performed By: #### 5 7021-8 ####[facility] LABCLIA [id number] [place] [address] [place] Lymphocytes (Bld) [#/Vol] 1.48 10*3/uL Normal 1.00-4.00 [facility] Comment on above: Order Comment: Speci men Type: BLOOD SPECIMENOrdering Facility: [facility] Address: [address] [place] [address] Performed By: #### 5 7021-8 ####[facility] LABIA [id number] [place] [address] [place] Lymphocytes/100 WBC (Bld) 12.3 % Normal [facility] Comment on above: Order Comment: Speci men Type: BLOOD SPECIMENOrdering Facility: [facility] Address: [address] [place] [address] Performed By: #### 5 7021-8 ####[facility] LABIA [id number] [place] [address] [place] MCH (RBC) [Entitic mass] 27.2 pg Normal 26.0-34.0 [facility] Comment on above: Order Comment: Speci men Type: BLOOD SPECIMENOrdering Facility: [facility] Address: [address] [place] [address] Performed By: #### 5 7021-8 ####[facility] [id number] [place] [address] [place] MCHC (RBC) [Mass/Vol] 31.9 g/dL Normal 30.5-36.0 [facility] Comment on above: Order Comment: Speci men Type: BLOOD SPECIMENOrdering Facility: [facility] Address: [address] [place] [address] Performed By: #### 5 7021-8 ####[facility] LABIA [id number] [place] [address] [place] MCV (RBC) [Entitic vol] 85.2 fL Normal 80.0-100.0 [facility] Comment on above: Order Comment: Speci men Type: BLOOD SPECIMENOrdering Facility: [facility] Address: [address] [place] [address] Performed By: #### 5 7021-8 ####[facility] LABIA [id number] [place] [id number] [place] Monocytes (Bld) [#/Vol] 1.05 10*3/uL High <0.87 [facility] Comment on above: Order Comment: Speci men Type: BLOOD SPECIMENOrdering Facility: [facility] Address: [address] [place] [address] Performed By: #### 5 7021-8 ####[facility] LABCLIA [id number] [place] [address] [place] Monocytes/100 WBC (Bld) 8.7 % Normal [facility] Comment on above: Order Comment: Speci men Type: BLOOD SPECIMENOrdering Facility: [facility] Address: [address] [place] [address] Performed By: #### 5 7021-8 ####[facility] LABCLIA [id number] [place] [address] [place] Neutrophils (Bld) [#/Vol] 9.14 10*3/uL High 1.45-7.50 [facility] Comment on above: Order Comment: Speci men Type: BLOOD SPECIMENOrdering Facility: [facility] Address: [address] [place] [address] Performed By: #### 5 7021-8 ####[facility] LABCLIA [id number] [place] [address] [place] Neutrophils/100 WBC (Bld) 76.2 % Normal [facility] Comment on above: Order Comment: Speci men Type: BLOOD SPECIMENOrdering Facility: [facility] Address: [address] [place] [address] Performed By: #### 5 7021-8 ####[facility] LABCLIA [id number] [place] [address] [place] Nucleated RBC (Bld) [#/Vol] 10*3/uL Normal <0.01 [facility] Comment on above: Order Comment: Speci men Type: BLOOD SPECIMENOrdering Facility: [facility] Address: [address] [place] [address] Performed By: #### 5 7021-8 ####[facility] LABCLIA [id number] [place] [address] [place] Nucleated RBC/100 WBC (Bld) [Ratio] 0.0 /100 WBC Normal [facility] Comment on above: Order Comment: Speci men Type: BLOOD SPECIMENOrdering Facility: [facility] Address: [address] [place] [address] Performed By: #### 5 7021-8 ####[facility] LABIA [id number] [place] [address] [place] Platelet mean volume (Bld) [Entitic vol] 11.3 fL Normal 9.0-12.7 [facility] Comment on above: Order Comment: Speci men Type: BLOOD SPECIMENOrdering Facility: [facility] Address: [address] [place] [address] Performed By: #### 5 7021-8 ####[facility] LABIA [id number] [place] [address] [place] Platelets (Bld) [#/Vol] 346 10*3/uL Normal 150-400 [facility] Comment on above: Order Comment: Speci men Type: BLOOD SPECIMENOrdering Facility: [facility] Address: [address] [place] [address] Performed By: #### 5 7021-8 ####[facility] LABCLIA [id number] [place] [address] [place] RBC (Bld) [#/Vol] 4.93 10*6/uL Normal 3.90-5.20 [facility] Comment on above: Order Comment: Speci men Type: BLOOD SPECIMENOrdering Facility: [facility] Address: [address] [place] [address] Performed By: #### 5 7021-8 ####[facility] LABCLIA [id number] [place] [id number] [place] WBC (Bld) [#/Vol] 12.02 10*3/uL High 3.70-11.00 [facility] Comment on above: Order Comment: Speci men Type: BLOOD SPECIMENOrdering Facility: [facility] Address: [address] [place] [address] Performed By: #### 5 7021-8 ####[facility] [id number] [place] [id number] [place] CNOVon 05-11-2024 CNOV Office Visit (FAMPWS ) MICHAEL MEIER ([id number]) 1940 F Date Time Provider Department 05/11/24 1:00 PM [facility] During your visit today, we recorded the following information about you: Pulse Blood pressure Weight 60/minute 130/58 100.9 kg Key Portillo APRN.PERFORMANCE IMPROVEMENT COORDINATOR 05/11/2024 2:08 PM Signed Chief Complaint Patient presents with: Transition Of Care: Was i wfor chf flae was discharged on 05/02/24 HPI Michael J Kvngyuko is a 84 year old female who presents here today for Above Complaints. Michael is an established patient of Dr. Edd DO. Concerns today... Hospital discharge -- [facility] hospital admission from 04/30-05/02 d/t hypoxia [...] COMPARTMENTS 11/15/2009 Knee replacement, total -Left - [facility] ARTHRP BARRYE CONDYLEANDPLATU MEDIALANDLAT COMPARTMENTS 12/30/2009 Right knee replaced COLONOSCOPY FLX DX W/COLLJ SPEC WHEN PFRMD 06/29/2017 Colonoscopy EGD 10/17/2020 EGD W/O [facility] SPEC VARICIES INJ 01/08/2022 EGD W/O [facility] SPEC VARICIES INJ 03/31/2024 Lito ESOPHAGOGASTRODUODENOSCOPY TRANSORAL [...] included)... Normal [facility] Comprehensive metabolic 2000 panelon 05-11-2024 Albumin [Mass/Vol] 4.1 g/dL Normal 3.9-4.9 [facility] Comment on above: Order Comment: Speci men Type: BLOOD SPECIMENOrdering Facility: [facility] Address: [address] [place] [address] Performed By: #### 2 4323-8, 3016-3, 87317-0, 3024-7 ####[facility] LABCLIA [id number] [place] [address] [place] ALP [Catalytic activity/Vol] 98 U/L Normal 34-123 [facility] Comment on above: Order Comment: Speci men Type: BLOOD SPECIMENOrdering Facility: [facility] Address: [address] [place] [address] Performed By: #### 2 4323-8, 3016-3, 04068-5, 3024-7 ####[facility] LABCLIA [id number] [place] [address] [place] ALT [Catalytic activity/Vol] 26 U/L Normal 7-38 [facility] Comment on above: Order Comment: Speci men Type: BLOOD SPECIMENOrdering Facility: [facility] Address: [address] [place] [address] Performed By: #### 2 4323-8, 3016-3, 92901-7, 3024-7 ####[facility] LABIA [id number] [place] [address] [place] Anion gap [Moles/Vol] 15 mmol/L Normal 8-15 [facility] Comment on above: Order Comment: Speci men Type: BLOOD SPECIMENOrdering Facility: [facility] Address: [address] [place] [address] Performed By: #### 2 4323-8, 3016-3, 34966-0, 3024-7 ####[facility] LABIA [id number] [place] [address] [place] AST [Catalytic activity/Vol] 29 U/L Normal 13-35 [facility] Comment on above: Order Comment: Speci men Type: BLOOD SPECIMENOrdering Facility: [facility] Address: [address] [place] [address] Performed By: #### 2 4323-8, 3016-3, 81850-5, 3024-7 ####[facility] LABCLIA [id number] [place] [address] [place] Bilirubin [Mass/Vol] 0.8 mg/dL Normal 0.2-1.3 [facility] Comment on above: Order Comment: Speci men Type: BLOOD SPECIMENOrdering Facility: [facility] Address: [address] [place] [address] Performed By: #### 2 4323-8, 3016-3, 58242-7, 3024-7 ####[facility] LABCLIA [id number] [facility] [place] [place] [address] [place] Calcium [Mass/Vol] 9.4 mg/dL Normal 8.5-10.2 [facility] Comment on above: Order Comment: Speci men Type: BLOOD SPECIMENOrdering Facility: [facility] Address: [address] [place] [address] Performed By: #### 2 4323-8, 3016-3, 13241-9, 3024-7 ####[facility] LABCLIA [id number] [place] [address] [place] Chloride [Moles/Vol] 95 mmol/L Low 98-107 [facility] Comment on above: Order Comment: Speci men Type: BLOOD SPECIMENOrdering Facility: [facility] Address: [address] [place] [address] Performed By: #### 2 4323-8, 3016-3, 01873-1, 3024-7 ####[facility] LABCLIA [id number] [facility] [place] [place] [address] [place] CO2 [Moles/Vol] 25 mmol/L Normal 22-30 [facility] Comment on above: Order Comment: Speci men Type: BLOOD SPECIMENOrdering Facility: [facility] Address: [address] [place] [address] Performed By: #### 2 4323-8, 3016-3, 22414-3, 3024-7 ####[facility] LABCLIA [id number] [facility] [place] [address] [place] Creatinine [Mass/Vol] 1.76 mg/dL High 0.58-0.96 [facility] Comment on above: Order Comment: Lori mosqueda Type: BLOOD SPECIMENOrdering Facility: [facility] Address: [address] [place] [address] Performed By: #### 2 4323-8, 3016-3, 37910-8, 3024-7 ####[facility] LABCLIA [id number] [place] [address] [place] Creatinine and Glomerular filtration rate.predicted panel (S/P/Bld) 28 mL/min/1.73m??? Low >=60 [facility] Comment on above: Order Comment: Lori mosqueda Type: BLOOD SPECIMENOrdering Facility: [facility] Address: [address] [place] [address] Result Comment: Bina mated Glomerular Filtration Rate [...] GFR. Performed By: #### 2 4323-8, 3016-3, 73193-9, 3024-7 ####[facility] LABCLIA [id number] [place] [id number] [place] Glucose [Mass/Vol] 127 mg/dL High 74-99 [facility] Comment on above: Order Comment: Lori mosqueda Type: BLOOD SPECIMENOrdering Facility: [facility] Address: [address] [place] [address] Result Comment: The [place] Diabetes Association (ADA) provides guidance for cutoff [...] Standards of Medical Care in Diabetes 2016, [place] Diabetes Association. Diabetes Care. 2016.39(Suppl 1). Performed By: #### 2 4323-8, 3016-3, 61274-8, 3024-7 ####[facility] LABCLIA [id number] [place] [address] [place] Potassium [Moles/Vol] 4.6 mmol/L Normal 3.7-5.1 [facility] Comment on above: Order Comment: Speci men Type: BLOOD SPECIMENOrdering Facility: [facility] Address: [address] [place] [address] Performed By: #### 2 4323-8, 3016-3, 43267-7, 3027 ####[facility] LABCLIA [id number] [place] [address] [place] Protein [Mass/Vol] 7.1 g/dL Normal 6.3-8.0 [facility] Comment on above: Order Comment: Octaviai jaylin Type: BLOOD SPECIMENOrdering Facility: [facility] Address: [address] [place] [address] Performed By: #### 2 4323-8, 3016-3, 81877-7, 7 ####[facility] LABCLIA [id number] [place] [address] [place] Sodium [Moles/Vol] 135 mmol/L Low 136-144 [facility] Comment on above: Order Comment: Speci men Type: BLOOD SPECIMENOrdering Facility: [facility] Address: [address] [place] [address] Performed By: #### 2 4323-8, 3016-3, 73451-7, 3024-7 ####[facility] LABCLIA [id number] [place] [id number] [place] Urea nitrogen [Mass/Vol] 42 mg/dL High 7-21 [facility] Comment on above: Order Comment: Speci men Type: BLOOD SPECIMENOrdering Facility: [facility] Address: [address] [place] [address] Performed By: #### 2 4323-8, 3016-3, 77772-8, 3024-7 ####[facility] LABIA [id number] [place] [address] [place] NT-proBNP SerPl-mCncon 05-11 Natriuretic peptide.B prohormone N-Terminal [Mass/Vol] 117 pg/mL Normal <450 [facility] Comment on above: Order Comment: Speci men Type: BLOOD SPECIMENOrdering Facility: [facility] Address: [address] [place] [address] Performed By: #### 2 4323-8, 3016-3, 15932-2, 3024-7 ####[facility] [id number] [place] [address] [place] T4 Free SerPl-mCncon 025 Free T4 [Mass/Vol] 2.0 ng/dL High 0.9-1.7 [facility] Comment on above: Order Comment: Speci men Type: BLOOD SPECIMENOrdering Facility: [facility] Address: [address] [place] [address] Performed By: #### 2 4323-8, 3016-3, 07218-5, 3024-7 ####[facility] [id number] [place] [address] [place] TSH SerPl-aCncon 05-11-2024 TSH Qn 2.320 m[IU]/L Normal 0.270-4.20 0 [facility] Comment on above: Order Comment: Speci men Type: BLOOD SPECIMENOrdering Facility: [facility] Address: [address] [place] [address] Performed By: #### 2 4323-8, 3016-3, 71186-3, 3024-7 ####[facility] JONAS [id number] [place]ley [place] [id number] [place] CARMELINANon 05-08-2024 CNPN Telephone (FAMPWS) MICHAEL MEIER ([id number]) 1940 F Date Time Provider Department 05/08/24 [facility] During your visit today, we recorded the following information about you: Amanda Pratt RN 05/08/2024 9:01 AM Signed Marifer with [facility] calls to let provider know [...] Will address then. Thank you, Key Portillo APRN.PERFORMANCE IMPROVEMENT COORDINATOR Allergies As of Date: 05/08/2024 Noted Allergy [...] Date Reviewed: 04/10/2024 Reviewed by: Sharon Jarrett APRN.PERFORMANCE IMPROVEMENT COORDINATOR - Fully Assessed Reason for Visit: Patient [...] included)... Normal [facility] CNPNon 05-05-2024 CNPN Telephone (FAMPWS) MICHAEL MEIER ([id number]) 1940 F Date Time Provider Department 05/05/24 MICHAEL PUGA FAMPWS During your visit today, we recorded the following information about you: July Marcano RN 05/05/2024 4:02 PM Signed Sergio PT with [facility] called in and reports they [...] Date Reviewed: 04/10/2024 Reviewed by: Sharon Jarrett APRN.PERFORMANCE IMPROVEMENT COORDINATOR - Fully Assessed Reason for Visit: Home [...] included)... Normal [facility] CNPNon 05-04-2024 CNPN Telephone (FAMPWS) MICHAEL MEIER ([id number]) 1940 F Date Time Provider Department 05/04/24 [facility] During your visit today, we recorded the following information about you: Aly Tolentino LPN 05/04/2024 2:34 PM Signed Suha from [facility] calling with plan of care. [...] Date Reviewed: 04/10/2024 Reviewed by: Sharon Jarrett APRN.PERFORMANCE IMPROVEMENT COORDINATOR - Fully Assessed Reason for Visit: Home [...] included)... Normal [facility] Absolute neutrophil countOrd ered By: Jonny Vicente on 05-02-2024 Neutrophils (Bld) [#/Vol] 4.4 10*3/uL 2.0-7.7 [facility] Basic Metabolic Profile (BMP )on 05-02-2024 BUN/CRE 29.7 RATIO High 10-20 [facility] Comment on above: Performed By: #### L 100.0100, L500.2500 ####[facility] [address] [facility] [place], [address] CA,Total 8.7 mg/dL Normal 8.5-10.1 [facility] Comment on above: Performed By: #### L 100.0100, L500.2500 ####[facility] [address] [place], [address] Chloride [Moles/Vol] 100 mmol/L Normal 98-107 [facility] Comment on above: Performed By: #### L 100.0100, L500.2500 ####[facility] [address] [place], [address] CO2 [Moles/Vol] 33.0 mmol/L High 21.0-32.0 [facility] Comment on above: Performed By: #### L 100.0100, L500.2500 ####[facility] [address] [place], [address] Creatinine [Mass/Vol] 0.74 mg/dL Normal 0.55-1.02 [facility] Comment on above: Result Comment: The validity of the calculated GFR GFRAA in patients over70 years has not been determined. Clinical correlation isessential. Performed By: #### L 100.0100, L500.2500 ####[facility] [address] [place], [address] ECRCL 63.05 ml/min Normal [facility] Comment on above: Performed By: #### L 100.0100, L500.2500 ####[facility] [address] [place], [address] EST GFR - AA 96 mL/min Normal >60 [facility] Comment on above: Result Comment: Afri can Malaysian GFR Calc Performed By: #### L 100.0100, L500.2500 ####[facility] [address] [place], [address] GAP 7 Normal 5-15 [facility] Comment on above: Performed By: #### L 100.0100, L500.2500 ####[facility] [address] [place], [address] GFR/1.73 sq M.predicted among non-blacks MDRD (S/P/Bld) [Vol rate/Area] 80 mL/min/{1.73_m2} Normal >60 [facility] Comment on above: Result Comment: Non- GFR Calc Performed By: #### L 100.0100, L500.2500 ####[facility] [address] [place], [address] Glucose [Mass/Vol] 109 mg/dL High 74-106 [facility] Comment on above: Result Comment: Fast ing Glucose result from 100 to 125 mg/dLsuggests IMPAIRED HOMEOSTASIS per A.D.A. criteria. Performed By: #### L 100.0100, L500.2500 ####[facility] [address] [place], [address] Potassium [Moles/Vol] 3.3 mmol/L Low 3.5-5.1 [facility] Comment on above: Performed By: #### L 100.0100, L500.2500 ####[facility] [address] [place], [address] Sodium [Moles/Vol] 139 mmol/L Normal 136-145 [facility] Comment on above: Performed By: #### L 100.0100, L500.2500 ####[facility] [address] [place], [address] Urea nitrogen [Mass/Vol] 22 mg/dL High 7-18 [facility] Comment on above: Performed By: #### L 100.0100, L500.2500 ####[facility] [address] [place], [address] Basophil percentageOrdered B y: Jonny Vicente on 05-02-2024 Basophils/100 WBC (Bld) 0.7 % 0-1 [facility] Blood urea nitrogen (BUN)/cr eatinine ratioOrdered By: Jonny Vicente on 05-02-2024 Urea nitrogen/Creatinine [Mass ratio] 29.7 mg/mg High 10-20 [facility] CBC W/Diff, Automatedon 12-3 Absolute Lymph 1.38 X10 3/uL Normal 0.83-4.51 [facility] Comment on above: Performed By: #### L 100.0100, L500.2500 ####[facility] [address] [place], [address] Absolute Neut 4.4 X10 3/uL Normal 2.0-7.7 [facility] Comment on above: Performed By: #### L 100.0100, L500.2500 ####[facility] [address] [place], [address] Basophils/100 WBC (Bld) 0.7 % Normal 0-1 [facility] Comment on above: Performed By: #### L 100.0100, L500.2500 ####[facility] [address] [place], [address] Eosinophils/100 WBC (Bld) 3.6 % Normal 0-5 [facility] Comment on above: Performed By: #### L 100.0100, L500.2500 ####[facility] [address] [place], [address] Erythrocyte distribution width (RBC) [Ratio] 16.2 % High 11.6-14.6 [facility] Comment on above: Performed By: #### L 100.0100, L500.2500 ####[facility] [address] [place], [address] Hematocrit (Bld) [Volume fraction] 34.8 % Low 37-47 [facility] Comment on above: Performed By: #### L 100.0100, L500.2500 ####[facility] [address] [place], [address] Hemoglobin (Bld) [Mass/Vol] 11.2 g/dL Low 12.0-15.0 [facility] Comment on above: Performed By: #### L 100.0100, L500.2500 ####[facility] [address] [place], [address] IG% 0.300 Normal 0.0-0.9 [facility] Comment on above: Result Comment: IG% - Immature Granulocytes (promyelocytes, myelocytes andmetamyelocytes) > 1% indicates that a LEFT SHIFT is Present. Performed By: #### L 100.0100, L500.2500 ####[facility] [address] [place], [address] Lymphocytes/100 WBC (Bld) 19.8 % Normal 19-41 [facility] Comment on above: Performed By: #### L 100.0100, L500.2500 ####[facility] [address] [place], [address] MCH (RBC) [Entitic mass] 27.7 pg Normal 27.0-32.0 [facility] Comment on above: Performed By: #### L 100.0100, L500.2500 ####[facility] [address] [place], [address] MCHC (RBC) [Mass/Vol] 32.2 g/dL Normal 32-36 [facility] Comment on above: Performed By: #### L 100.0100, L500.2500 ####[facility] [address] [place], [address] MCV (RBC) [Entitic vol] 85.9 fL Normal 81-99 [facility] Comment on above: Performed By: #### L 100.0100, L500.2500 ####[facility] [address] [place], [address] Monocytes/100 WBC (Bld) 11.9 % High 0-10 [facility] Comment on above: Performed By: #### L 100.0100, L500.2500 ####[facility] [address] [place], [address] Neutrophils/100 WBC (Bld) 63.7 % Normal 47-70 [facility] Comment on above: Performed By: #### L 100.0100, L500.2500 ####[facility] [address] [place], [address] Nucleated RBC (Bld) [#/Vol] 0 10*3/uL Normal 0-5 [facility] Comment on above: Performed By: #### L 100.0100, L500.2500 ####[facility] [address] [place], [address] Platelet mean volume (Bld) [Entitic vol] 10.8 fL Normal 6.2-12.0 [facility] Comment on above: Performed By: #### L 100.0100, L500.2500 ####[facility] [address] [place], [address] Platelets (Bld) [#/Vol] 241 10*3/uL Normal 150-450 [facility] Comment on above: Performed By: #### L 100.0100, L500.2500 ####[facility] [address] [place], [address] RBC (Bld) [#/Vol] 4.05 10*6/uL Low 4.2-5.[address] [facility] Comment on above: Performed By: #### L 100.0100, L500.2500 ####[facility] [address] [place], [address] RDW SD 51.3 fl High 35.1-43.9 [facility] Comment on above: Performed By: #### L 100.0100, L500.2500 ####[facility] [address] [place], [address] WBC (Bld) [#/Vol] 7.0 10*3/uL Normal 4.4-11.0 [facility] Comment on above: Performed By: #### L 100.0100, L500.2500 ####[facility] [address] [place], [address] Carbon dioxide measurementOr dered By: Jonny Vicente on 05-02-2024 CO2 [Moles/Vol] 33.0 mmol/L High 21.0-32.0 [facility] Chloride measurementOrdered By: Jonny Vicente on 05-02-2024 Chloride [Moles/Vol] 100 mmol/L 98-107 [facility] Discharge Instructionon 12-3 Discharge Instruction Normal [facility] Eosinophil percentageOrdered By: Jonny Vicente on 05-02-2024 Eosinophils/100 WBC (Bld) 3.6 % 0-5 [facility] Erythrocyte distribution wid th ratioOrdered By: Jonny Vicente on 05-02-2024 Erythrocyte distribution width (RBC) [Ratio] 16.2 % High 11.6-14.6 [facility] Erythrocyte distribution wid th standard deviationOrdered By: Jonny Vicente on 05-02-2024 Erythrocyte distribution width (RBC) [Entitic vol] 51.3 fL High 35.1-43.9 [facility] Estimated glomerular filtrat ion rate (GFR) AmericanOrdered By: Jonny Vicente on 05-02-2024 Estimated GFR (MDRD) Amer 96 mL/min >60 [facility] Comment on above: GFR Calc Estimation of creatinine demetrius aranceOrdered By: Jonny Vicente on 05-02-2024 Estimated Creatinine Clearance Calc 63.05 ml/min [facility] Glomerular filtration rate ( GFR) estimationOrdered By: Jonny Vicente on 05-02-2024 Estimated GFR (MDRD) Non-Af Amer 80 mL/min >60 [facility] Comment on above: Non- GFR Calc Glucose measurementOrdered B y: Jonny Vicente on 05-02-2024 Glucose [Mass/Vol] 109 mg/dL High 74-106 [facility] Comment on above: Fasting Glucose resu lt from 100 to 125 mg/dL suggests IMPAIRED HOMEOSTASIS per A.D.A. criteria. Hematocrit Auto (Bld) [Volum e fraction]Ordered By: Jonny Vicente on 05-02-2024 Hematocrit (Bld) [Volume fraction] 34.8 % Low 37-47 [facility] Hemoglobin measurementOrdere d By: Jonny Vicente on 05-02-2024 Hemoglobin (Bld) [Mass/Vol] 11.2 g/dL Low 12.0-15.0 [facility] Immature granulocytes/100 WB C Auto (Bld)Ordered By: Jonny Vicente on 05-02-2024 Immature granulocytes/100 WBC (Bld) 0.300 % 0.0-0.9 [facility] Comment on above: IG% - Immature Granu locytes (promyelocytes, myelocytes and metamyelocytes) > 1% indicates that a LEFT SHIFT is Present. Lymphocytes Auto (Unsp spec) [#/Vol]Ordered By: Jonny Vicente on 05-02-2024 Lymphocytes (Bld) [#/Vol] 1.38 10*3/uL 0.83-4.51 [facility] Lymphocytes/100 WBC Auto (Un sp spec)Ordered By: Jonny Vicente on 05-02-2024 Lymphocytes/100 WBC (Bld) 19.8 % 19-41 [facility] MCV (mean corpuscular volume ) determinationOrdered By: Jonny Vicente on 05-02-2024 MCV (RBC) [Entitic vol] 85.9 fL 81-99 [facility] Mean corpuscular hemoglobin (MCH) determinationOrdered By: Jonny Vicente on 05-02-2024 MCH (RBC) [Entitic mass] 27.7 pg 27.0-32.0 [facility] Mean corpuscular hemoglobin concentration (MCHC) determinationOrdered By: Jonny Vicente on 05-02-2024 MCHC (RBC) [Mass/Vol] 32.2 g/dL 32-36 [facility] Mean platelet volume determi nationOrdered By: Jonny Vicente on 05-02-2024 Platelet mean volume (Bld) [Entitic vol] 10.8 fL 6.2-12.0 [facility] Monocyte percentageOrdered B y: Jonny Vicente on 05-02-2024 Monocytes/100 WBC (Bld) 11.9 % High 0-10 [facility] Neutrophil percentageOrdered By: Jonny Vicente on 05-02-2024 Neutrophils/100 WBC (Bld) 63.7 % 47-70 [facility] Nucleated red blood cell per centageOrdered By: Jonny Vicente on 05-02-2024 Nucleated RBC/100 WBC (Bld) [Ratio] 0 % 0-5 [facility] Platelet countOrdered By: Alyson Vicente on 05-02-2024 Platelets (Bld) [#/Vol] 241 10*3/uL 150-450 [facility] Potassium measurementOrdered By: Jonny Vicente on 05-02-2024 Potassium [Moles/Vol] 3.3 mmol/L Low 3.5-5.1 [facility] RBC Auto (Bld) [#/Vol]Ordere d By: Jonny Vicente on 05-02-2024 RBC (Bld) [#/Vol] 4.05 10*6/uL Low 4.2-5.[address] [facility] Serum anion gap measurementO rdered By: Jonny Vicente on 05-02-2024 Anion gap [Moles/Vol] 7 mmol/L 5-15 [facility] Serum or plasma calcium julee urement (mass/volume)Ordered By: Jonny Vicente on 05-02-2024 Calcium [Mass/Vol] 8.7 mg/dL 8.5-10.1 [facility] Serum or plasma creatinine m easurement (mass/volume)Ordered By: Jonny Vicente on 05-02-2024 Creatinine [Mass/Vol] 0.74 mg/dL 0.55-1.02 [facility] Comment on above: The validity of the calculated GFR & GFRAA in patients over 70 years has not been determined. Clinical correlation is essential. Serum or plasma urea nitroge n measurement (mass/volume)Ordered By: Jonny Vicente on 05-02-2024 Urea nitrogen [Mass/Vol] 22 mg/dL High 7-18 [facility] Sodium levelOrdered By: Timmy Vicente on 05-02-2024 Sodium [Moles/Vol] 139 mmol/L 136-145 [facility] Urine Cultureon 05-02-2024 [facility] Comments: Use ED UA Mixed Gram Positive Organisms [place] Count 25,000-50,000 MIXC Mixed contaminants. Submit a new specimen if indicated. Normal [facility] Comment on above: Performed By: #### M 100.2200 ####[facility] [address] [place], [address] White blood cell (WBC) count Ordered By: Jonny Vicente on 05-02-2024 WBC (Bld) [#/Vol] 7.0 10*3/uL 4.4-11.0 [facility] Albumin to globulin ratioOrd ered By: Susan Duran on 05-01-2024 Albumin/Globulin [Mass ratio] 0.8 {ratio} Low 0.9-2.4 [facility] Comment on above: Performed By: #### L 500.4050, L100.0100, L500.4100 ####[facility] [address] [place], [address] Bilirubin, totalOrdered By: Susan Duran on 05-01-2024 Bilirubin [Mass/Vol] 1.60 mg/dL High 0.20-1.00 [facility] Comment on above: For patients on eltr ombopag therapy, use of [employer] [place] TBIL is not recommended. Result Comment: For patients on eltrombopag therapy, use of [employer] [place] TBIL is not recommended. Performed By: #### L 500.4050, L100.0100, L500.4100 ####[facility] [address] [place], [address] CBC W/Diff, Automatedon - Absolute Lymph 1.39 X10 3/uL Normal 0.83-4.51 [facility] Comment on above: Performed By: #### L 500.4050, L100.0100, L500.4100 ####[facility] [address] [place], [address] Absolute Neut 4.5 X10 3/uL Normal 2.0-7.7 [facility] Comment on above: Performed By: #### L 500.4050, L100.0100, L500.4100 ####[facility] [address] [place], [address] Basophils/100 WBC (Bld) 0.8 % Normal 0-1 [facility] Comment on above: Performed By: #### L 500.4050, L100.0100, L500.4100 ####[facility] [address] [place], [address] Eosinophils/100 WBC (Bld) 2.5 % Normal 0-5 [facility] Comment on above: Performed By: #### L 500.4050, L100.0100, L500.4100 ####[facility] [address] [place], [address] Erythrocyte distribution width (RBC) [Ratio] 16.5 % High 11.6-14.6 [facility] Comment on above: Performed By: #### L 500.4050, L100.0100, L500.4100 ####[facility] [address] [place], [address] Hematocrit (Bld) [Volume fraction] 34.0 % Low 37-47 [facility] Comment on above: Performed By: #### L 500.4050, L100.0100, L500.4100 ####[facility] [address] [place], [address] Hemoglobin (Bld) [Mass/Vol] 11.0 g/dL Low 12.0-15.0 [facility] Comment on above: Performed By: #### L 500.4050, L100.0100, L500.4100 ####[facility] [address] [place], [address] IG% 0.100 Normal 0.0-0.9 [facility] Comment on above: Result Comment: IG% - Immature Granulocytes (promyelocytes, myelocytes andmetamyelocytes) > 1% indicates that a LEFT SHIFT is Present. Performed By: #### L 500.4050, L100.0100, L500.4100 ####[facility] [address] [place], [address] Lymphocytes/100 WBC (Bld) 19.6 % Normal 19-41 [facility] Comment on above: Performed By: #### L 500.4050, L100.0100, L500.4100 ####[facility] [address] [place], [address] MCH (RBC) [Entitic mass] 27.5 pg Normal 27.0-32.0 [facility] Comment on above: Performed By: #### L 500.4050, L100.0100, L500.4100 ####[facility] [address] [place], [address] MCHC (RBC) [Mass/Vol] 32.4 g/dL Normal 32-36 [facility] Comment on above: Performed By: #### L 500.4050, L100.0100, L500.4100 ####[facility] [address] [place], [address] MCV (RBC) [Entitic vol] 85.0 fL Normal 81-99 [facility] Comment on above: Performed By: #### L 500.4050, L100.0100, L500.4100 ####[facility] [address] [place], [address] Monocytes/100 WBC (Bld) 13.4 % High 0-10 [facility] Comment on above: Performed By: #### L 500.4050, L100.0100, L500.4100 ####[facility] [address] [place], [address] Neutrophils/100 WBC (Bld) 63.6 % Normal 47-70 [facility] Comment on above: Performed By: #### L 500.4050, L100.0100, L500.4100 ####[facility] [address] [place], [address] Nucleated RBC (Bld) [#/Vol] 0 10*3/uL Normal 0-5 [facility] Comment on above: Performed By: #### L 500.4050, L100.0100, L500.4100 ####[facility] [address] [place], [address] Platelet mean volume (Bld) [Entitic vol] 11.2 fL Normal 6.2-12.0 [facility] Comment on above: Performed By: #### L 500.4050, L100.0100, L500.4100 ####[facility] [address] [place], [address] Platelets (Bld) [#/Vol] 193 10*3/uL Normal 150-450 [facility] Comment on above: Performed By: #### L 500.4050, L100.0100, L500.4100 ####[facility] [address] [place], [address] RBC (Bld) [#/Vol] 4.00 10*6/uL Low 4.2-5.[address] [facility] Comment on above: Performed By: #### L 500.4050, L100.0100, L500.4100 ####[facility] [address] [place], [address] RDW SD 51.2 fl High 35.1-43.9 [facility] Comment on above: Performed By: #### L 500.4050, L100.0100, L500.4100 ####[facility] [address] [place], [address] WBC (Bld) [#/Vol] 7.1 10*3/uL Normal 4.4-11.0 [facility] Comment on above: Performed By: #### L 500.4050, L100.0100, L500.4100 ####[facility] [address] [place], [address] CNPNon 05-01-2024 [facility] Telephone (FAMPWS) MICHAEL MEIER ([id number]) 1940 F Date Time Provider Department 05/01/24 MICHAEL PUGA [facility] During your visit today, we recorded the following information about you: Constance Ervin LPN 05/01/2024 2:21 PM Signed Larissa with [facility] calls to report pt is currently in the hospital with heart failure exacerbation. Pt will most likely be discharged 05/03/24. Pt has orders for PT, OT, and Assisted. Larissa is requesting VO that pcp will [...] Date Reviewed: 04/10/2024 Reviewed by: Sharon Jarrett APRN.PERFORMANCE IMPROVEMENT COORDINATOR - Fully Assessed Reason for Visit: verbal [...] atrial fibrilla (more content not included)... Normal [facility] Metabolic Prof shahida 05-01-2024 ALK P 80 U/L Normal 45-117 [facility] Comment on above: Performed By: #### L 500.4050, L100.0100, L500.4100 ####[facility] [address] [place], [address] BUN/CRE 20.0 RATIO Normal 10-20 [facility] Comment on above: Performed By: #### L 500.4050, L100.0100, L500.4100 ####[facility] [address] [place], [address] CA,Total 8.8 mg/dL Normal 8.5-10.1 [facility] Comment on above: Performed By: #### L 500.4050, L100.0100, L500.4100 ####[facility] [address] [place], [address] Chloride [Moles/Vol] 100 mmol/L Normal 98-107 [facility] Comment on above: Performed By: #### L 500.4050, L100.0100, L500.4100 ####[facility] [address] [place], [address] CO2 [Moles/Vol] 35.0 mmol/L High 21.0-32.0 [facility] Comment on above: Performed By: #### L 500.4050, L100.0100, L500.4100 ####[facility] [address] [place], [address] Creatinine [Mass/Vol] 0.85 mg/dL Normal 0.55-1.02 [facility] Comment on above: Result Comment: The validity of the calculated GFR GFRAA in patients over70 years has not been determined. Clinical correlation isessential. Performed By: #### L 500.4050, L100.0100, L500.4100 ####[facility] [address] [place], [address] ECRCL 59.98 ml/min Normal [facility] Comment on above: Performed By: #### L 500.4050, L100.0100, L500.4100 ####[facility] [address] [place], [address] EST GFR - AA 82 mL/min Normal >60 [facility] Comment on above: Result Comment: Afri can Malaysian GFR Calc Performed By: #### L 500.4050, L100.0100, L500.4100 ####[facility] [address] [place], [address] GAP 3 Low 5-15 [facility] Comment on above: Performed By: #### L 500.4050, L100.0100, L500.4100 ####[facility] [address] [place], [address] GFR/1.73 sq M.predicted among non-blacks MDRD (S/P/Bld) [Vol rate/Area] 68 mL/min/{1.73_m2} Normal >60 [facility] Comment on above: Result Comment: Non- GFR Calc Performed By: #### L 500.4050, L100.0100, L500.4100 ####[facility] [address] [place], [address] Glucose [Mass/Vol] 117 mg/dL High 74-106 [facility] Comment on above: Result Comment: Fast ing Glucose result from 100 to 125 mg/dLsuggests IMPAIRED HOMEOSTASIS per A.D.A. criteria. Performed By: #### L 500.4050, L100.0100, L500.4100 ####[facility] [address] [place], [address] Potassium [Moles/Vol] 3.0 mmol/L Low 3.5-5.1 [facility] Comment on above: Performed By: #### L 500.4050, L100.0100, L500.4100 ####[facility] [address] [place], [address] Sodium [Moles/Vol] 138 mmol/L Normal 136-145 [facility] Comment on above: Performed By: #### L 500.4050, L100.0100, L500.4100 ####[facility] [address] [place], [address] T PROT 6.3 g/dL Low 6.4-8.2 [facility] Comment on above: Performed By: #### L 500.4050, L100.0100, L500.4100 ####[facility] [address] [place], [address] Urea nitrogen [Mass/Vol] 17 mg/dL Normal 7-18 [facility] Comment on above: Performed By: #### L 500.4050, L100.0100, L500.4100 ####[facility] [address] [place], [address] Comprehensive Metabolic Prof ilOrdered By: Susan Duran on 05-01-2024 AST [Catalytic activity/Vol] 18 U/L Normal 15-37 [facility] Comment on above: Performed By: #### L 500.4050, L100.0100, L500.4100 ####[facility] [address] [place], [address] High density lipoprotein (HD L) measurementOrdered By: Susan Duran on 05-01-2024 Cholesterol in HDL [Mass/Vol] 54 mg/dL Normal [facility] Comment on above: The drugs N-Acetylcy steine and Metamizole may falsely depress this assay. Reference Range HDL <40 mg/dL Low HDL Cholesterol HDL >or= 60 mg/dL High HDL Cholesterol Result Comment: The drugs N-Acetylcysteine and Metamizole may falselydepress this assay. Reference Range HDL <40 mg/dL Low HDL Cholesterol HDL >or= 60 mg/dL High HDL Cholesterol Performed By: #### L 500.4050, L100.0100, L500.4100 ####[facility] [address] [place], [address] Lipid Profileon 05-01-2024 Cholesterol in VLDL [Mass/Vol] 20 mg/dL Normal 5-40 [facility] Comment on above: Performed By: #### L 500.4050, L100.0100, L500.4100 ####[facility] [address] [place], [address] Low density lipoprotein (LDL ) cholesterol measurementOrdered By: Susan Duran on 05-01-2024 Cholesterol in LDL [Mass/Vol] 66 mg/dL Normal 0-130 [facility] Comment on above: Performed By: #### L 500.4050, L100.0100, L500.4100 ####[facility] [address] [place], [address] Serum globulin measurementOr dered By: Susan Duran on 05-01-2024 Globulin (S) [Mass/Vol] 3.5 g/dL Normal 2.2-4.2 [facility] Comment on above: Performed By: #### L 500.4050, L100.0100, L500.4100 ####[facility] [address] [place], [address] Serum or plasma alanine sprague otransferase (ALT) measurementOrdered By: Susan Duran on 05-01-2024 ALT [Catalytic activity/Vol] 24 U/L Normal 13-56 [facility] Comment on above: Performed By: #### L 500.4050, L100.0100, L500.4100 ####[facility] [address] [place], [address] Serum or plasma albumin julee urement (mass/volume)Ordered By: Susan Duran on 05-01-2024 Albumin [Mass/Vol] 2.8 g/dL Low 3.2-5.0 [facility] Comment on above: Performed By: #### L 500.4050, L100.0100, L500.4100 ####[facility] [address] [place], [address] Serum or plasma alkaline rachel sphatase measurementOrdered By: Susan Roger on 05-01-2024 ALP [Catalytic activity/Vol] 80 U/L 45-117 [facility] Serum or plasma cholesterol measurement (mass/volume)Ordered By: Susan Duran on 05-01-2024 Cholesterol [Mass/Vol] 140 mg/dL Normal 200 [facility] Comment on above: <200 mg/dL Desirable 200-240 mg/dL Borderline >240 mg/dL High Risk Result Comment: <200 mg/dL Desirable 200-240 mg/dL Borderline >240 mg/dL High Risk Performed By: #### L 500.4050, L100.0100, L500.4100 ####[facility] [address] [place], [place], [id number] Total proteinOrdered By: Ashu Duran on 05-01-2024 Protein [Mass/Vol] 6.3 g/dL Low 6.4-8.2 [facility] Triglycerides measurementOrd ered By: Susan Roger on 05-01-2024 Triglyceride [Mass/Vol] 102 mg/dL Normal [facility] Comment on above: The drugs N-Acetylcy [...] Performed By: #### L 500.4050, L100.0100, L500.4100 ####[facility] [address] [place], [place], [id number] Very low density lipoprotein (VLDL) cholesterol measurementOrdered By: Susan Duran on 05-01-2024 VLDL Cholesterol 20 mg/dL 5-40 [facility] 12 Lead EKGon 04-30-2024 12 Lead EKG Normal [facility] Amorphous sediment detection in urine sediment by light microscopyOrdered By: Aravind Recio on 04-30-2024 Amorphous sediment LM Ql (Urine sed) 1+ [facility] BNP (brain natriuretic pepti de measurement)Ordered By: Aravind Recio on 04-30-2024 Natriuretic peptide B (Bld) [Mass/Vol] 266.9 pg/mL High 0-100 [facility] BNP,B-Type NATRIURETIC PEPTI Kenyatta 04-30-2024 Natriuretic peptide B (Bld) [Mass/Vol] 266.9 pg/mL High 0-100 [facility] Comment on above: Performed By: #### L 501.9520, L300.8000, L501.5200, L500.2500, L503.6620 ####[facility] [address] [place], [place], [phone] Basic Metabolic Profile (BMP )on 04-30-2024 BUN/CRE 19.1 RATIO Normal 10-20 [facility] Comment on above: Performed By: #### L 501.9520, L300.8000, L501.5200, L500.2500, L503.6620 ####[facility] [address] [place], [address] CA,Total 9.0 mg/dL Normal 8.5-10.1 [facility] Comment on above: Performed By: #### L 501.9520, L300.8000, L501.5200, L500.2500, L503.6620 ####[facility] [address] [place], [address] Chloride [Moles/Vol] 99 mmol/L Normal 98-107 [facility] Comment on above: Performed By: #### L 501.9520, L300.8000, L501.5200, L500.2500, L503.6620 ####[facility] [address] [place], [address] CO2 [Moles/Vol] 33.0 mmol/L High 21.0-32.0 [facility] Comment on above: Performed By: #### L 501.9520, L300.8000, L501.5200, L500.2500, L503.6620 ####[facility] [address] [place], [address] Creatinine [Mass/Vol] 0.68 mg/dL Normal 0.55-1.02 [facility] Comment on above: Result Comment: The validity of the calculated GFR GFRAA in patients over70 years has not been determined. Clinical correlation isessential. Performed By: #### L 501.9520, L300.8000, L501.5200, L500.2500, L503.6620 ####[facility] [address] [place], [address] ECRCL 65.47 ml/min Normal [facility] Comment on above: Performed By: #### L 501.9520, L300.8000, L501.5200, L500.2500, L503.6620 ####[facility] [address] [place], [address] EST GFR - AA 106 mL/min Normal >60 [facility] Comment on above: Result Comment: Afri can Malaysian GFR Calc Performed By: #### L 501.9520, L300.8000, L501.5200, L500.2500, L503.6620 ####[facility] [address] [place], [address] GAP 7 Normal 5-15 [facility] Comment on above: Performed By: #### L 501.9520, L300.8000, L501.5200, L500.2500, L503.6620 ####[facility] [address] [place], [address] GFR/1.73 sq M.predicted among non-blacks MDRD (S/P/Bld) [Vol rate/Area] 88 mL/min/{1.73_m2} Normal >60 [facility] Comment on above: Result Comment: Non- GFR Calc Performed By: #### L 501.9520, L300.8000, L501.5200, L500.2500, L503.6620 ####[facility] [address] [place], [address] Glucose [Mass/Vol] 127 mg/dL High 74-106 [facility] Comment on above: Result Comment: Fast ing Glucose result greater than or equal to 126 mg/dLsuggests DIABETES MELLITUS per A.D.A. criteria. Performed By: #### L 501.9520, L300.8000, L501.5200, L500.2500, L503.6620 ####[facility] [address] [place], [address] Potassium [Moles/Vol] 2.8 mmol/L Low 3.5-5.1 [facility] Comment on above: Performed By: #### L 501.9520, L300.8000, L501.5200, L500.2500, L503.6620 ####[facility] [address] [place], [address] Sodium [Moles/Vol] 139 mmol/L Normal 136-145 [facility] Comment on above: Performed By: #### L 501.9520, L300.8000, L501.5200, L500.2500, L503.6620 ####[facility] [address] [place], [address] Urea nitrogen [Mass/Vol] 13 mg/dL Normal 7-18 [facility] Comment on above: Performed By: #### L 501.9520, L300.8000, L501.5200, L500.2500, L503.6620 ####[facility] [address] [place], [address] Bilirubin Test strip Ql (U)O rdered By: Aravind Recio on 04-30-2024 Bilirubin Ql (U) Negative Negative [facility] Bilirubin directOrdered By: Aravind Recio on 04-30-2024 Bilirubin.direct [Mass/Vol] 0.52 mg/dL High 0.00-0.30 [facility] CBC W/Diff, Automatedon 04-03 Absolute Lymph 1.24 X10 3/uL Normal 0.83-4.51 [facility] Comment on above: Performed By: #### L 100.0100 ####[facility] [address] [place], [address] Absolute Neut 10.4 X10 3/uL High 2.0-7.7 [facility] Comment on above: Performed By: #### L 100.0100 ####[facility] [address] [place], [address] Basophils/100 WBC (Bld) 0.4 % Normal 0-1 [facility] Comment on above: Performed By: #### L 100.0100 ####[facility] [address] [place], [address] Eosinophils/100 WBC (Bld) 1.3 % Normal 0-5 [facility] Comment on above: Performed By: #### L 100.0100 ####[facility] [address] [place], [address] Erythrocyte distribution width (RBC) [Ratio] 16.7 % High 11.6-14.6 [facility] Comment on above: Performed By: #### L 100.0100 ####[facility] [address] [place], [address] Hematocrit (Bld) [Volume fraction] 36.9 % Low 37-47 [facility] Comment on above: Performed By: #### L 100.0100 ####[facility] [address] [place], [address] Hemoglobin (Bld) [Mass/Vol] 11.9 g/dL Low 12.0-15.0 [facility] Comment on above: Performed By: #### L 100.0100 ####[facility] [address] [place], [address] IG% 0.400 Normal 0.0-0.9 [facility] Comment on above: Result Comment: IG% - Immature Granulocytes (promyelocytes, myelocytes andmetamyelocytes) > 1% indicates that a LEFT SHIFT is Present. Performed By: #### L 100.0100 ####[facility] [address] [place], [address] Lymphocytes/100 WBC (Bld) 9.3 % Low 19-41 [facility] Comment on above: Performed By: #### L 100.0100 ####[facility] [address] [place], [address] MCH (RBC) [Entitic mass] 27.7 pg Normal 27.0-32.0 [facility] Comment on above: Performed By: #### L 100.0100 ####[facility] [address] [place], [address] MCHC (RBC) [Mass/Vol] 32.2 g/dL Normal 32-36 [facility] Comment on above: Performed By: #### L 100.0100 ####[facility] [address] [place], [address] MCV (RBC) [Entitic vol] 85.8 fL Normal 81-99 [facility] Comment on above: Performed By: #### L 100.0100 ####[facility] [address] [place], [address] Monocytes/100 WBC (Bld) 11.0 % High 0-10 [facility] Comment on above: Performed By: #### L 100.0100 ####[facility] [address] [place], [address] Neutrophils/100 WBC (Bld) 77.6 % High 47-70 [facility] Comment on above: Performed By: #### L 100.0100 ####[facility] [address] [place], [address] Nucleated RBC (Bld) [#/Vol] 0 10*3/uL Normal 0-5 [facility] Comment on above: Performed By: #### L 100.0100 ####[facility] [address] [place], [address] Platelet mean volume (Bld) [Entitic vol] 10.8 fL Normal 6.2-12.0 [facility] Comment on above: Performed By: #### L 100.0100 ####[facility] [address] [place], [address] Platelets (Bld) [#/Vol] 236 10*3/uL Normal 150-450 [facility] Comment on above: Performed By: #### L 100.0100 ####[facility] [address] [place], [address] RBC (Bld) [#/Vol] 4.30 10*6/uL Normal 4.2-5.[address] [facility] Comment on above: Performed By: #### L 100.0100 ####[facility] [address] [place], [address] RDW SD 52.8 fl High 35.1-43.9 [facility] Comment on above: Performed By: #### L 100.0100 ####[facility] [address] [place], [address] WBC (Bld) [#/Vol] 13.4 10*3/uL High 4.4-11.[address] [facility] Comment on above: Performed By: #### L 100.0100 ####[facility] [address] [place], [place], [address] CTA Chest W/WO Contraston CTA Chest W/WO Contrast Normal [facility] Chest PA and Lateralon 04-30 Chest PA and Lateral Normal [facility] D-Dimer Quantitative (DVT/PE )on 04-30-2024 D-DIMER QUANT 0.83 FEU/ug/m Invalid Interpretation Code 0.27-0.49 [facility] Comment on above: Result Comment: D-Di rand ELEVATED (>0.49): Additional studies and clinicalassessments are indicated to conclude diagnosis of:Deep Vein Thrombosis (DVT) or Pulmonary Embolism (PE)[facility] Yessenia Kern.RESULTS READ BACK BY SAME. Performed By: #### L 501.9520, L300.8000, L501.5200, L500.2500, L503.6620 ####[facility] [address] [place], [place], [address] D-dimer measurement for deep venous thrombosisOrdered By: Aravind Recio on 04-30-2024 D-Dimer Quantitative (PE/DVT) 0.83 FEU/ug/m High 0.27-0.49 [facility] Comment on above: D-Dimer ELEVATED (>0 .49): Additional studies and clinicalassessments are indicated to conclude diagnosis of:Deep Vein Thrombosis (DVT) or Pulmonary Embolism (PE)CRITICAL VALUE [facility] 0731 Yessenia Kern.RESULTS READ BACK BY SAME. Direct serum free thyroxine (FT4) measurementOrdered By: Susan Duran on 04-30-2024 Free T4 [Mass/Vol] 1.90 ng/dL High 0.76-1.46 [facility] Emergency Department Summary on 04-30-2024 Emergency Department Summary Normal [facility] Epithelial cells.renal LM.HP F (Urine sed) [#/Area]Ordered By: Aravind Recio on 04-30-2024 Urine Renal Epithelial Cells 0-5 SEEN /hpf 0-5 [facility] Epithelial cells.squamous LM Ql (Urine sed)Ordered By: Aravind Recio on 04-30-2024 Epithelial cells.squamous LM.HPF (Urine sed) [#/Area] 5 /[HPF] 5-10 [facility] Glucose Ql (U)Ordered By: Yanira Recio on 04-30-2024 Urine Glucose (UA) Normal mg/dl Normal [facility] H AND P Exam - [facility] 04-30-2024 H&P Exam - Hospitalist Normal [facility] Influenza virus A and B and SARS-CoV-2 (COVID-19) and Respiratory syncytial virus RNAOrdered By: Aravind Recio on 04-30-2024 SARS-CoV-2 (COVID-19) RNA DUSTIN+probe Ql (Unsp spec) [facility] International normalized rat io (INR) calculationOrdered By: Aravind Recio on 04-30-2024 INR Coag (Bld) [Relative time] 1.2 {INR} [facility] Ketones Test strip Ql (U)Ord ered By: Aravind Recio on 04-30-2024 Ketones Ql (U) Negative Negative [facility] L501.4020on 04-30-2024 TROPONIN-I HS 43 pg/mL Normal 3.0-54.0 [facility] Comment on above: Order Comment: Comme nts: SPECIMEN #3'TROP' Serial specimen #1, #2 or #3: 3 Result Comment: Plea se Note: New Test Units and Gender Specific Reference Ranges. For more information see Policy Stat Procedure [place] High Sensitivity Troponin (TNIH) and attachments. Performed By: #### L 501.4020 ####[facility] [address] [place], [place], [id number] TROPONIN-I HS 56 pg/mL High 3.0-54.0 [facility] Comment on above: Order Comment: Comme nts: SPECIMEN #2'TROP' Serial specimen #1, #2 or #3: 2 Result Comment: Plea se Note: New Test Units and Gender Specific Reference Ranges. For more information see Policy Stat Procedure [place] High Sensitivity Troponin (TNIH) and attachments. Performed By: #### L 501.4020 ####[facility] [address] [place], [address] TROPONIN-I HS 65 pg/mL High 3.0-54.0 [facility] Comment on above: Order Comment: 'TROP ' Serial specimen #1, #2 or #3: 1 Result Comment: Plea se Note: New Test Units and Gender Specific Reference Ranges. For more information see Policy Stat Procedure [place] High Sensitivity Troponin (TNIH) and attachments. Performed By: #### L 501.4020 ####[facility] [address] [place], [address] Lipaseon 04-30-2024 Lipase [Catalytic activity/Vol] 12 U/L Low 13-75 [facility] Comment on above: Result Comment: Plea se note:LIPASE revised reference range effective 22.New Lipase methodology. Expected to produce lower valuesthan the previous assay method.NEW Reference Range: 13 - 75 U/L Performed By: #### L 500.3400, L501.2450 ####[facility] [address] [place], [address] Lipase measurementOrdered By : Aravind Recio on 04-30-2024 Lipase [Catalytic activity/Vol] 12 U/L Low 13-75 [facility] Comment on above: Please note:LIPASE r evised reference range effective 22. New Lipase methodology. Expected to produce lower values than the previous assay method. NEW Reference Range: 13 - 75 U/L Liver Profileon 04-30-2024 Albumin [Mass/Vol] 3.2 g/dL Normal 3.2-5.0 [facility] Comment on above: Performed By: #### L 500.3400, L501.2450 ####[facility] [address] [place], [address] ALK P 96 U/L Normal 45-117 [facility] Comment on above: Performed By: #### L 500.3400, L501.2450 ####[facility] [address] [place], [address] ALT [Catalytic activity/Vol] 27 U/L Normal 13-56 [facility] Comment on above: Performed By: #### L 500.3400, L501.2450 ####[facility] [address] [place], [address] AST [Catalytic activity/Vol] 19 U/L Normal 15-37 [facility] Comment on above: Performed By: #### L 500.3400, L501.2450 ####[facility] [address] [place], [address] Bilirubin [Mass/Vol] 2.20 mg/dL High 0.20-1.00 [facility] Comment on above: Result Comment: For patients on eltrombopag therapy, use of Dimension [place] TBIL is not recommended. Performed By: #### L 500.3400, L501.2450 ####[facility] [address] [place], [address] Bilirubin.direct [Mass/Vol] 0.52 mg/dL High 0.00-0.30 [facility] Comment on above: Performed By: #### L 500.3400, L501.2450 ####[facility] [address] [place], [address] Globulin (S) [Mass/Vol] 4.0 g/dL Normal 2.2-4.2 [facility] Comment on above: Performed By: #### L 500.3400, L501.2450 ####[facility] [address] [place], [address] T PROT 7.2 g/dL Normal 6.4-8.2 [facility] Comment on above: Performed By: #### L 500.3400, L501.2450 ####[facility] [address] [place], [address] M100.678on 04-30-2024 M100.678 Pending SARS-CoV-2 (COVID 19) Negative INFLUENZA A Negative INFLUENZA B Negative RSV PCR Negative Normal [facility] Comment on above: Performed By: #### M 100.678, L400.0001 ####[facility] [address] [place] [place], [address] Magnesiumon 04-30-2024 Magnesium [Mass/Vol] 2.0 mg/dL Normal 1.6-2.6 [facility] Comment on above: Performed By: #### L 501.9520, L300.8000, L501.5200, L500.2500, L503.6620 ####[facility] [address] [place], [address] Magnesium measurementOrdered By: Aravind Recio on 04-30-2024 Magnesium [Mass/Vol] 2.0 mg/dL 1.6-2.6 [facility] Microscopic analysis of urin e for red blood cells (RBC)Ordered By: Aravind Recio on 04-30-2024 Urine RBC 0-5 SEEN /hpf 0-5 [facility] Mucus LM Ql (Urine sed)Order ed By: Aravind Recio on 04-30-2024 Mucus Ql (Urine sed) 0 SEEN /hpf [facility] Nitrite Test strip Ql (U)Ord ered By: Aravind Recio on 04-30-2024 Nitrite Ql (U) Negative Negative [facility] Partial Thromboplast Timeon 04-30-2024 aPTT Coag (Bld) [Time] 32.3 s Normal 24.1-36.2 [facility] Comment on above: Performed By: #### L 300.3900, L300.4310 ####[facility] [address] [place], [address] Protein Test strip Ql (U)Ord ered By: Aravind Recio on 04-30-2024 Protein Ql (U) 15 mg/dl High Negative [facility] Prothrombin Time w/INRon INR Coag (PPP) [Relative time] 1.2 {INR} Normal [facility] Comment on above: Performed By: #### L 300.3900, L300.4310 ####[facility] [address] [place], [address] PT Coag (PPP) [Time] 14.9 s Normal 11.7-14.9 [facility] Comment on above: Performed By: #### L 300.3900, L300.4310 ####[facility] [address] [place], [address] Prothrombin timeOrdered By: Aravind Recio on 04-30-2024 PT Coag (PPP) [Time] 14.9 s 11.7-14.9 [facility] RESPIRATORY PANEL MOLECULARo n 04-30-2024 RP PANEL Normal [facility] Comment on above: Performed By: #### M 100.638 ####[facility] [address] [place], [address] Respiratory pathogens DNA an d RNA panel DUSTIN+probe (Resp)Ordered By: Susan Duran on 04-30-2024 Respiratory Panel (PCR) [facility] T4 Free Directon 04-30-2024 T4 FREE DIRECT 1.90 ng/dL High 0.76-1.46 [facility] Comment on above: Performed By: #### L 506.0400 ####[facility] [address] [place], [address] TSH QnOrdered By: Norbert on 04-30-2024 Thyroid Stimulating Hormone (TSH) 4.070 uIU/mL High 0.358-3.74 0 [facility] Thyroid Stim Hormone (TSH)on 04-30-2024 TSH 4.070 uIU/mL High 0.358-3.74 0 [facility] Comment on above: Performed By: #### L 501.9520, L300.8000, L501.5200, L500.2500, L503.6620 ####[facility] [address] [place], [address] Transitional cells LM Ql (Ur ine sed)Ordered By: Aravind Recio on 04-30-2024 Urine Transitional Epithelial Cells 0-5 SEEN /hpf 0-5 [facility] Troponin IOrdered By: Susan Duran on 04-30-2024 Troponin I High Sensitivity 43 pg/mL 3.0-54.0 [facility] Comment on above: Please Note: New Destiney t Units and Gender Specific Reference Ranges. For more information see Policy Stat Procedure [place] High Sensitivity Troponin (TNIH) and attachments. Urinalysis, Completeon 04-30 AMORPHOUS 1+ Normal [facility] Comment on above: Order Comment: LISANDRA CTOR TO SPECIFY Performed By: #### M 100.678, L400.0001 ####[facility] [address] [place], [address] BACTERIA 2+ /hpf Normal None Seen [facility] Comment on above: Order Comment: LISANDRA CTOR TO SPECIFY Performed By: #### M 100.678, L400.0001 ####[facility] [address] [place], [address] EPI,RENAL 0-5 SEEN Normal 0-5 [facility] Comment on above: Order Comment: LISANRDA CTOR TO SPECIFY Performed By: #### M 100.678, L400.0001 ####[facility] [address] [place], [address] EPI,SQUAMOUS 5-10 SEEN Normal 5-10 [facility] Comment on above: Order Comment: LISANDRA CTOR TO SPECIFY Performed By: #### M 100.678, L400.0001 ####[facility] [address] [place], [address] EPI,TRANSITION 0-5 SEEN Normal 0-5 [facility] Comment on above: Order Comment: LISANDRA CTOR TO SPECIFY Performed By: #### M 100.678, L400.0001 ####[facility] [address] [place], [address] RBC 0-5 SEEN Normal 0-5 [facility] Comment on above: Order Comment: LISANDRA CTOR TO SPECIFY Performed By: #### M 100.678, L400.0001 ####[facility] [address] [place], [address] WBC 0-5 SEEN Normal 0-5 [facility] Comment on above: Order Comment: LISANDRA CTOR TO SPECIFY Performed By: #### M 100.678, L400.0001 ####[facility] [address] [place], [address] Mucus Ql (Urine sed) 0 SEEN Normal [facility] Comment on above: Order Comment: LISANDRA CTOR TO SPECIFY Performed By: #### M 100.678, L400.0001 ####[facility] [address] [place], [address] Urine blood detectionOrdered By: Aravind Recio on 04-30-2024 Urine Occult Blood Negative Negative [facility] Urine clarityOrdered By: Addy Recio on 04-30-2024 Clarity (U) Clear Clear [facility] Urine color determinationOrd ered By: Aravind Recio on 04-30-2024 Color (U) Yellow Yellow [facility] Urine cultureOrdered By: Aut umn White on 04-30-2024 Bacteria identified Cx Nom (U) Positive Abnormal [facility] Urine leukocyte esterase det ection by dipstickOrdered By: Aravind Recio on 04-30-2024 Leukocyte esterase Test strip Ql (U) 100 /ul High Negative [facility] Urine pHOrdered By: Aravind thomas on 04-30-2024 pH (U) 7.0 [pH] 5.0 - 8.0 [facility] Urine sediment bacteria coun t by microscopy (number/high power field)Ordered By: Aravind Recio on 04-30-2024 Bacteria LM.HPF (Urine sed) [#/Area] 2 /[HPF] None Seen [facility] Urine specific gravity measu rementOrdered By: Aravind Recio on 04-30-2024 Specific gravity (U) [Rel density] 1.010 1.002-1.03 0 [facility] Urobilinogen Ql (U)Ordered B y: Aravind Recio on 04-30-2024 Urobilinogen (U) [Mass/Vol] 8 mg/dL High Normal [facility] White blood cell countOrdere d By: Aravind Recio on 04-30-2024 Urine WBC 0-5 SEEN /hpf 0-5 [facility] aPTT Coag (PPP) [Time]Ordere d By: Aravind Recio on 04-30-2024 aPTT Coag (Bld) [Time] 32.3 s 24.1-36.2 [facility] CNPNon 04-24-2024 [facility] Telephone (FAMPWS) MICHAEL MEIER ([id number]) 1940 F Date Time Provider Department 04/24/24 MICHAEL PUGA [facility] During your visit today, we recorded the [...] Date Reviewed: 04/10/2024 Reviewed by: Sharon Jarrett APRN.PERFORMANCE IMPROVEMENT COORDINATOR - Fully Assessed Reason for Visit: Leg [...] included)... Normal [facility] CNTHERAPYon 04-20-2024 CNTHERAPY OT/PT/Speech Visit ( LDPT) MICHAEL MEIER ([id number]) 1940 F Date Time Provider Department 04/20/24 12:45 PM SARAH MERCHANT LDPT Date Time Provider Department Agency 04/20/2024 12:45 PM [id number], CARLA LDPT [facility] Reason for Visit: Physical Therapy [...] Date Reviewed: 04/10/2024 Reviewed by: Sharon Jarrett APRN.PERFORMANCE IMPROVEMENT COORDINATOR - Fully Assessed Prescriptions as of 07/03/2024 [...] 1 tablet by mouth once daily. Normal [facility] [id number] 04-18-2024 [id number] O ID: [id number] Author: SARAH MERCHANT PT Service: ? Author Type: Physical Therapist Type: [id number] Filed: 04/18/2024 19:04 Note Text: [facility] Physical Therapy Plan of Care Certification Patient Name: Michael Meier : 1940 [facility] #: [id number] Date: 04/18/2024 To: Geeta Cadet,* From Therapist: [...] for Episode of Care: created on 11/15/23 [place] in home exercise program. Patient will demonstrate [...] Patient to be seen for Therapeutic exercise (72503), Neuromuscular re-education (12313), Therapeutic activities (67361), Self-mcc management (10182), Gait Training (70589), Patient/Family/Caregiver Education, General Conditioning PLAN FOR NEXT VISIT: continue to progress endurance, strength, balance and gait. promote increased mobility/activity at home For further details regarding this patient refer to the Physical Therapy electronically documented visit dated 04/18/2024. Provider Attestation I have reviewed the treatment plan for Michael Meier, [facility]# [id number] for the period of 04/18/24 -- 05/18/24, established on 04/18/2024. Signature certifies the need for therapy services. Normal [facility] CNTHERAPYon 04-18-2024 CNTHERAPY OT/PT/Speech Visit ( LDPT) MICHAEL MEIER ([id number]) 1940 F Date Time Provider Department 04/18/24 1:30 PM SARAH MERCHANT LDPT Date Time Provider Department Center 04/18/2024 1:30 PM [id number] STEWARD LDPT [facility] Reason for Visit: PT Progress Note [1596] [...] Date Reviewed: 04/10/2024 Reviewed by: Sharon Jarrett APRN.PERFORMANCE IMPROVEMENT COORDINATOR - Fully Assessed Prescriptions as of 05/08/2024 [...] daily. Letter Text [facility] Office Visit (GENSWS ) MICHAEL MEIER ([id number]) 1940 F Date Time Provider Department 04/10/24 4:00 PM SHAORN JARRETT GENGAURAVS During your visit today, we recorded the following information about you: Sharon Jarrett APRN.CNP 04/10/2024 4:04 PM Signed FOLLOW UP VISIT - ENDOSCOPY Michael Meier 1940 [id number] REFERRING PHYSICIAN: No referring provider defined for [...] as needed for worsening/no improvement. Sharon Jarrett APRN.PERFORMANCE IMPROVEMENT COORDINATOR Allergies As of Date: 04/10/2024 Noted Allergy [...] Date Reviewed: 04/10/2024 Reviewed by: Sharon Jarrett APRN.PERFORMANCE IMPROVEMENT COORDINATOR - Fully Assessed Reason for Visit: Follow [...] included)... 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 Patient / Responsible Libertarian agrees to proceed: yes Patient / Surrogate [...] 1940 Admit Type: Outpatient Age: 83 Room: [facility] Gender: Female Note Status: Finalized Attending MD: Raymundo De León MD, [id number] Procedure: Upper GI endoscopy Indications: Epigastric abdominal [...] be scheduled. Procedure Code(s): --- Professional --- 69160, Esophagogastroduodenoscopy, flexible, transoral; with biopsy, single or multiple Diagnosis Code(s): --- Professional --- K44.9, Diaphragmatic hernia without obstruction or gangrene K29.70, Gastritis, unspecified, without bleeding R10.13, Epigastric pain (more content not included)... [employer]ATION [facility] Radiology Study observation (narrative) [facility] HISTORY PHYSICALon HISTORY PHYSICAL HNO ID: [id number] Author: RAYMUNDO DE LEÓN MD Service: General Surgery Author Type: Physician Type: H&P Filed: 03/31/2024 10:47 Note Text: HISTORY AND PHYSICAL Michael Meier : 1940 REFERRING PHYSICIAN: Michael Puga [address] [facility] [address] CHIEF COMPLAINT: Patient presents with: Consult: EGD [...] Dr. De León at [facility] Sedation:Midazolam 4 mg IV, Fentanyl 100 [...] [facility] SURGICAL PATHOLOGYon 024 CASE REPORT [facility] Comment on above: Order Comment: Speci men Type: TISSUE SPECIMEN Ordering Facility: [facility] Address: [address] [place] [address] Result Comment: Surg ical Pathology Report Case: [id number] Authorizing Provider: Raymundo De León MD Collected: 03/31/2024 11:01 AM Ordering Location: [facility] Endoscopy Received: 03/31/2024 12:34 PM Pathologist: Tanna Nathan MD Specimens: A) - Small Bowel, Duodenum, Biopsy B) - Stomach, Biopsy, r/o H. Pylori C) - Esophagus, Distal, Biopsy D) - Esophagus, Mid, Biopsy Performed By: #### S #### [facility] CLIA [id number] [address] [place] [address] [place] FINAL DIAGNOSIS [facility] Comment on above: Order Comment: Speci men Type: TISSUE SPECIMEN Ordering Facility: [facility] Address: [address] [place] [address] Result Comment: A. S mall bowel, duodenum, [...] AEB/kr 04/04/2024 Performed By: #### S #### [facility] CLIA [id number] [address] [place] [address] [place] FINAL PERFORMING LAB Normal [facility] Comment on above: Order Comment: Speci men Type: TISSUE SPECIMEN Ordering Facility: [facility] Address: [address] [place] [address] Result Comment: Diag nostic interpretation performed at [facility], [address] [place] [address] CLIA# [id number] Disposition Clerk: Todd Fields M.D. Performed By: #### S #### [facility] CLIA [id number] [address] [place] [address] [place] GROSS DESCRIPTION Normal [facility] Comment on above: Order Comment: Speci men Type: TISSUE SPECIMEN Ordering Facility: [facility] Address: [address] [place] [address] Result Comment: A. S mall Bowel, Duodenum, [...] 0.2 cm. Totally submitted in one cassette. [facility] March 31, 2024 3:19 PM Gross examination performed at [facility], [address] [place] [address] Performed By: #### S #### [facility] CLIA [id number] [address] [place] [address] [place] Upper GI endoscopyon 03-31-2 024 Upper GI endoscopy [facility] Gastrointestinal Endoscopy Patient Name: Michael Meier Procedure Date: 03/31/2024 10:20 AM Date of : 1940 Admit Type: Outpatient Age: 83 Room: [facility] Gender: Female Note Status: Finalized Attending MD: Raymundo De León MD, [id number] Procedure: Upper GI endoscopy Indications: Epigastric abdominal [...] be scheduled. Procedure Code(s): --- Professional --- 53763, Esophagogastroduodenoscopy, flexible, transoral; with biopsy, single or multiple Diagnosis Code(s): --- Professional --- K44.9, Diaphragmatic hernia without obstruction or gangrene K29.70, Gastritis, unspecified, without bleeding R10.13, Epigastric pain R12, Heartburn CPT copyright 2020 [place] [employer]. All rights reserved. The codes documented in this report are preliminary and upon presentation manager review may be revised to meet [...] Hospital HISTORY PHYSICALon HISTORY PHYSICAL HNO ID: [id number] Author: MARY FOSTER APRN.PERFORMANCE IMPROVEMENT COORDINATOR Service: ? 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 Normal [facility] CNTHERAPYon 03-23-2024 CNTHERAPY OT/PT/Speech Visit ( LDPT) MICHAEL MEIER ([id number]) 1940 F Date Time Provider Department 03/23/24 12:45 PM SARAH MERCHANT Date Time Provider Department Center 03/23/2024 12:45 PM [id number] MERCHANT [facility] Reason for Visit: Physical Therapy [...] 1 tablet by mouth once daily. Normal [facility] CNTHERAPYon 03-20-2024 CNTHERAPY OT/PT/Speech Visit ( LDPT) MICHAEL MEIER ([id number]) 1940 F Date Time Provider Department 03/20/24 2:15 PM SARAH MERCHANT Date Time Provider Department Center 03/20/2024 2:15 PM [id number] MERCHANT [facility] Reason for Visit: Physical Therapy [...] 1 tablet by mouth once daily. Normal [facility] CNTHERAPYon 03-16-2024 CNTHERAPY OT/PT/Speech Visit ( LDPT) MICHAEL MEIER ([id number]) 1940 F Date Time Provider Department 03/16/24 12:45 PM SARAH MERCHANT LDPT Date Time Provider Department Center 03/16/2024 12:45 PM [id number], CARLA LDPT [facility] Reason for Visit: Physical Therapy [...] 1 tablet by mouth once daily. Normal [facility] CNTHERAPYon 03-14-2024 CNTHERAPY OT/PT/Speech Visit ( LDPT) MICHAEL MEIER ([id number]) 1940 F Date Time Provider Department 03/14/24 10:00 AM JOY SUN Date Time Provider Department Center 03/14/2024 10:00 AM [id number] SUNLDFRANTZ [facility] Reason for Visit: Physical Therapy [503] [...] 1 tablet by mouth once daily. Normal [facility] CNOVon 03-13-2024 [facility] Office Visit (GENSWS ) MICHAEL MEIER ([id number]) 1940 F Date Time Provider Department 03/13/24 2:30 PM SHARON JARRETT During your visit today, we recorded the following information about you: Temperature Pulse Blood pressure Weight 97.5 degrees 71/minute 184/75 105 kg Height 1.651 m Sharon Jarrett APRN.PERFORMANCE IMPROVEMENT COORDINATOR 03/13/2024 2:47 PM Signed HISTORY AND PHYSICAL Michael Meier : 1940 REFERRING PHYSICIAN: Michael Puga [address] [facility] [address] CHIEF COMPLAINT: Patient presents with: Consult: EGD [...] Dr. De León at [facility] Sedation:Midazolam 4 mg IV, Fentanyl 100 [...] HX APPENDECTO (more content not included)... Normal [facility] 03-13-2024 CNPN Telephone (Iconicfuture) MICHAEL MEIER ([id number]) 1940 F Date Time Provider Department 03/13/24 RAYMUNDO DE LEÓN [facility] During your visit today, we recorded the [...] included)... Normal [facility] Priscila [facility]-2024 [facility]SLICK[facility] MICHAEL MEIER ([id number]) 1940 F Date Time Provider Department 03/08/24 [facility] During your visit today, we recorded [...] included)... Normal [facility] CNTHERAPYon 03-02-2024 CNTHERAPY OT/PT/Speech Visit ( LDPT) MICHAEL MEIER ([id number]) 1940 F Date Time Provider Department 03/02/24 12:45 PM SARAH MERCHANT Date Time Provider Department Center 03/02/2024 12:45 PM [id number], CARLA LDPT [facility] Reason for Visit: Physical Therapy [...] once daily. Normal [facility] 03-01-2024 [facility] Office Visit (FAMPWS ) MICHAEL MEIER ([id number]) 1940 F Date Time Provider Department 03/01/24 5:40 PM [facility] During your visit today, we recorded [...] at 1.6 with recent lab check at [facility] office in Jan at [facility], she is using her Bipap [...] Chronic dyspnea, has been fully evaluated by Narcotics Investigator whom doesn't feel this is due to [...] COMPARTMENTS 11/15/2009 Knee replacement, total -Left - [facility] ARTHRP BARRYE CONDYLEANDPLATU MEDIALANDLAT COMPARTMENTS 12/30/2009 Right knee replaced COLONOSCOPY FLX DX W/COLLJ SPEC WHEN PFRMD 06/29/2017 Colonoscopy EGD 10/17/2020 EGD W/O [facility] SPEC VARICIES INJ 01/08/2022 ESOPHAGOGASTRODUODENOSCOPY TRANSORAL DIAGNOSTIC [...] daily. sucralfa (more content not included)... [facility] ([facility] MICHAEL MEIER ([id number]) 1940 F Date Time Provider Department 03/01/24 MICHAEL PUGA FAMPWS During your visit today, we recorded the following information about you: Michael Puga DO 03/01/2024 10:51 PM Signed Fax my office note from today and standard wheelchair [facility] and then notify her DO Brigette Dow [place], [place] 03/02/2024 1:33 PM Addendum Faxed to in [place]. Left message to return call. Please notify [...] included)... Normal [facility] CNTHERAPYon 02-17-2024 CNTHERAPY OT/PT/Speech Visit ( LDPT) MICHAEL MEIER ([id number]) 1940 F Date Time Provider Department 02/17/24 3:45 PM SARAH MERCHANT LDPT Date Time Provider Department Center 02/17/2024 3:45 PM [id number], CARLA LDPT [facility] Reason for Visit: PT Progress [...] 1 tablet by mouth once daily. Normal [facility] CNTHERAPYon 02-14-2024 CNTHERAPY OT/PT/Speech Visit ( LDPT) MICHAEL MEIER ([id number]) 1940 F Date Time Provider Department 02/14/24 1:30 PM WILFRED MCCLELLAN LDPT Date Time Provider Department Center 02/14/2024 1:30 PM [id number], PATRICK LDPT [facility] Reason for Visit: Physical Therapy [...] 1 tablet by mouth once daily. Normal [facility] CNTHERAPYon 02-10-2024 CNTHERAPY OT/PT/Speech Visit ( LDPT) MICHAEL MEIER ([id number]) 1940 F Date Time Provider Department 02/10/24 12:45 PM SARAH MERCHANT LDPT Date Time Provider Department Center 02/10/2024 12:45 PM [id number], CARLA LDPT [facility] Reason for Visit: Physical Therapy [...] 1 tablet by mouth once daily. Normal [facility] CNTHERAPYon 02-07-2024 CNTHERAPY OT/PT/Speech Visit ( LDPT) HARDEEPMICHAEL ([id number]) 1940 F Date Time Provider Department 02/07/24 2:15 PM SARAH MERCHANT LDPT Date Time Provider Department Agency 02/07/2024 2:15 PM [id number], CARLA LDPT [facility] Reason for Visit: Physical Therapy [...] 1 tablet by mouth once daily. Normal [facility] Echo Completeon 02-02-2024 Echo Complete Normal [facility] CNTHERAPYon 01-31-2024 CNTHERAPY OT/PT/Speech Visit ( LDPT) MICHAEL MEIER ([id number]) 1940 F Date Time Provider Department 01/31/24 2:15 PM SARAH MERCHANT LDPT Date Time Provider Department Center 01/31/2024 2:15 PM [id number], CARLA LDPT [facility] Reason for Visit: Physical Therapy [503] [...] 1 tablet by mouth once daily. Normal [facility] CNTHERAPYon 01-26-2024 CNTHERAPY OT/PT/Speech Visit ( LDPT) MICHAEL MEIER ([id number]) 1940 F Date Time Provider Department 01/26/24 3:00 PM WILFRED MCCLELLAN LDFRANTZ Date Time Provider Department Center 01/26/2024 3:00 PM [id number], PATRICK LDFRANTZ [facility] Reason for Visit: Physical Therapy [...] 1 tablet by mouth once daily. Normal [facility] 12 Lead EKG performed by [facility] [place] 01-25-2024 12 Lead EKG performed by [facility] Normal [facility] BNP,B-Type NATRIURETIC PEPTI Kenyatta 01-25-2024 Natriuretic peptide B (Bld) [Mass/Vol] 127.2 pg/mL High 0-100 [facility] Comment on above: Performed By: #### L 501.9520, L500.2500, L503.6620 ####[facility] [address] [place], [address] Basic Metabolic Profile (BMP )on 01-25-2024 BUN/CRE 27.3 RATIO High 10-20 [facility] Comment on above: Performed By: #### L 501.9520, L500.2500, L503.6620 ####[facility] [address] [place], [address] CA,Total 8.9 mg/dL Normal 8.5-10.1 [facility] Comment on above: Performed By: #### L 501.9520, L500.2500, L503.6620 ####[facility] [address] [place], [address] Chloride [Moles/Vol] 105 mmol/L Normal 98-107 [facility] Comment on above: Performed By: #### L 501.9520, L500.2500, L503.6620 ####[facility] [address] [place], [address] CO2 [Moles/Vol] 30.0 mmol/L Normal 21.0-32.0 [facility] Comment on above: Performed By: #### L 501.9520, L500.2500, L503.6620 ####[facility] [address] [place], [address] Creatinine [Mass/Vol] 0.55 mg/dL Normal 0.55-1.02 [facility] Comment on above: Result Comment: The validity of the calculated GFR GFRAA in patients over70 years has not been determined. Clinical correlation isessential. Performed By: #### L 501.9520, L500.2500, L503.6620 ####[facility] [address] [place], [address] EST GFR - AA 136 mL/min Normal >60 [facility] Comment on above: Result Comment: Afri can Malaysian GFR Calc Performed By: #### L 501.9520, L500.2500, L503.6620 ####[facility] [address] [place], [address] GAP 6 Normal 5-15 [facility] Comment on above: Performed By: #### L 501.9520, L500.2500, L503.6620 ####[facility] [address] [place], [address] GFR/1.73 sq M.predicted among non-blacks MDRD (S/P/Bld) [Vol rate/Area] 112 mL/min/{1.73_m2} Normal >60 [facility] Comment on above: Result Comment: Non- GFR Calc Performed By: #### L 501.9520, L500.2500, L503.6620 ####[facility] [address] [place], [address] Glucose [Mass/Vol] 109 mg/dL High 74-106 [facility] Comment on above: Result Comment: Fast ing Glucose result from 100 to 125 mg/dLsuggests IMPAIRED HOMEOSTASIS per A.D.A. criteria. Performed By: #### L 501.9520, L500.2500, L503.6620 ####[facility] [address] [place], [address] Potassium [Moles/Vol] 3.2 mmol/L Low 3.5-5.1 [facility] Comment on above: Performed By: #### L 501.9520, L500.2500, L503.6620 ####[facility] [address] [place], [address] Sodium [Moles/Vol] 141 mmol/L Normal 136-145 [facility] Comment on above: Performed By: #### L 501.9520, L500.2500, L503.6620 ####[facility] [address] [place], [address] Urea nitrogen [Mass/Vol] 15 mg/dL Normal 7-18 [facility] Comment on above: Performed By: #### L 501.9520, L500.2500, L503.6620 ####[facility] [address] [place], [address] Cardiology Visit Reporton Cardiology Visit Report Normal [facility] Thyroid Stim Hormone (TSH)on 01-25-2024 TSH 1.600 uIU/mL Normal 0.358-3.74 0 [facility] Comment on above: Performed By: #### L 501.9520, L500.2500, L503.6620 ####[facility] [address] [place], [address] [id number] 01-18-2024 [id number] HNO ID: [id number] Author: SARAH MERCHANT PT Service: ? Author Type: Physical Therapist Type: [id number] Filed: 01/18/2024 16:07 Note Text: [facility] Physical Therapy Plan of Care Certification Patient Name: Michael Meier : 1940 [facility] #: [id number] Date: 01/18/2024 To: Geeta Cadet,* From Therapist: [...] on 11/15/23 through 01/14/24, extended thru 04/17/24 Davilla in home exercise program. Patient will demonstrate [...] Patient to be seen for Therapeutic exercise (83030), Neuromuscular re-education (29936), Therapeutic activities (82503), Self-mcc management (89487), Gait Training (71319), Patient/Family/Caregiver Education, General Conditioning PLAN FOR NEXT VISIT: continue to progress LE strength, balance, gait AND endurance For further details regarding this patient refer to the Physical Therapy electronically documented visit dated 01/18/2024. Provider Attestation I have reviewed the treatment plan for Michael Meier, [facility]# [id number] for the period of 01/18/24 -- 04/17/24, established on 01/18/2024. Signature certifies the need for therapy services. Normal [facility] CNTHERAPYon 01-18-2024 CNTHERAPY OT/PT/Speech Visit ( LDPT) HARDEEPMICHAEL Deras ([id number]) 1940 F Date Time Provider Department 01/18/24 1:30 PM SARAH MERCHANT Date Time Provider Department Center 01/18/2024 1:30 PM [id number] MERCHANT [facility] Reason for Visit: PT Progress [...] mouth once daily. Letter Text [facility] MICHAEL MEIER ([id number]) 1940 F Date Time Provider Department 01/10/24 MICHAEL PUGA [facility] During your visit today, we recorded the [...] region without neurogenic claudication [M48.061] Order(s):STANDARD WHEELCHAIR [[id number]] Order #: [id number] Prescriptions as of 01/11/2024 - levothyroxine (SYNTHROID) [...] somnolence [R40.0] (more content not included)... Normal [facility] CNTHERAPYon 12-13-2023 CNTHERAPY OT/PT/Speech Visit ( LDPT) MICHAEL MEIER ([id number]) 1940 F Date Time Provider Department 12/13/23 3:45 PM SARAH MERCHANT Date Time Provider Department Center 12/13/2023 3:45 PM [id number], SARAH LDPT [facility] Reason for Visit: Physical Therapy [...] 1 tablet by mouth once daily. Normal [facility] CNTHERAPYon 12-07-2023 CNTHERAPY OT/PT/Speech Visit ( LDPT) MICHAEL MEIER ([id number]) 1940 F Date Time Provider Department 12/07/23 4:30 PM WILFRED MCCLELLAN Date Time Provider Department Center 12/07/2023 4:30 PM [id number] MCCLELLAN [facility] Reason for Visit: Physical Therapy [...] Take 1 tablet by mouth once daily. Paginator: Therapy (PT/OT/Speech/Resp) ID: [id number] 12/07/2023 5:18 PM Author: WILFRED MCCLELLAN Signed by WILFRED MCCLELLAN PTA on 12/07/2023 at 5:18 PM Document text: Program_ID:[id number] Access Code: [email or web address] URL: [email or web address] Date: 12-07-2023 Prepared By: Margoth Mcclellan Program Notes Exercises - Seated Hip Abduction - 1-2 x daily - 5 x weekly - 2-3 sets - 10 reps Normal [facility] THERAPY NTon 12-07-2023 THERAPY NT HNO ID: [id number] Author: WILFRED MCCLELLAN PTA Service: ? Author Type: Solar Designer Type: Therapy (PT/OT/Speech/Resp) Filed: 12/07/2023 17:18 Note Text: Program_ID:[id number] Access Code: [email or web address] URL: [email or web address] Date: 12-07-2023 Prepared By: Margoth Mcclellan Program Notes Exercises - Seated Hip Abduction - 1-2 x daily - 5 x weekly - 2-3 sets - 10 reps Normal [facility] CNOVon 12-01-2023 CNOV Office Visit (FAMPWS ) MICHAEL MEIER ([id number]) 1940 F Date Time Provider Department 12/01/23 1:20 PM [facility] During your visit today, we recorded the [...] MEDIALANDLAT COMPARTMENTS Comment: Knee replacement, total Left [facility] 12/30/2009: ARTHRP KNE CONDYLEANDPLATU MEDIALANDLAT COMPARTMENTS Comment: Right knee replaced 06/29/2017: COLONOSCOPY FLX DX W/COLLJ SPEC WHEN PFRMD Comment: Colonoscopy 10/17/2020: EGD Comment: 01/08/2022: EGD W/O [facility] SPEC VARICIES INJ 11/29/2000: ESOPHAGOGASTRODUODENOSCOPY TRANSORAL DIAGNOSTIC [...] Leg cramps Sulfa (Sulfonamide * hives Vicodin [Edgar (more content not included)... Normal [facility] Priscila 11-26-2023 [facility] Telephone (FAMPWS) MICHAEL MEIER ([id number]) 1940 F Date Time Provider Department 11/26/23 [...] included)... Normal [facility] CBC W Auto Differential pane l (Bld)on 11-25-2023 Basophils (Bld) [#/Vol] 0.10 10*3/uL Normal <0.11 [facility] Comment on above: Order Comment: Speci men Type: BLOOD SPECIMENOrdering Facility: [facility] Address: [address] [place] [address] Performed By: #### 5 7021-8 ####[facility] [place] LABCLIA [id number] [place] [address] [place] Basophils/100 WBC (Bld) 1.3 % Normal [facility] Comment on above: Order Comment: Speci men Type: BLOOD SPECIMENOrdering Facility: [facility] Address: [address] [place] [address] Performed By: #### 5 7021-8 ####[facility] [place] LABCLIA [id number] [address] [address] [place] Differential cell count method Nom (Bld) Auto Normal [facility] Comment on above: Order Comment: Speci men Type: BLOOD SPECIMENOrdering Facility: [facility] Address: [address] [place] [address] Performed By: #### 5 7021-8 ####[facility] [place] LABCLIA [id number] [address] [address] [place] Eosinophils (Bld) [#/Vol] 0.23 10*3/uL Normal <0.46 [facility] Comment on above: Order Comment: Speci men Type: BLOOD SPECIMENOrdering Facility: [facility] Address: [address] [place] [address] Performed By: #### 5 7021-8 ####[facility] [place] LABCLIA [id number] [place] [address] [place] Eosinophils/100 WBC (Bld) 3.0 % Normal [facility] Comment on above: Order Comment: Speci men Type: BLOOD SPECIMENOrdering Facility: [facility] Address: [address] [place] [address] Performed By: #### 5 7021-8 ####[facility] [place] LABCLIA [id number] [place] [address] [place] Erythrocyte distribution width (RBC) [Ratio] 14.6 % Normal 11.5-15.0 [facility] Comment on above: Order Comment: Speci men Type: BLOOD SPECIMENOrdering Facility: [facility] Address: [address] [place] [address] Performed By: #### 5 7021-8 ####[facility] [place] LABCLIA [id number] [facility] [place] [address] [place] Hematocrit (Bld) [Volume fraction] 43.0 % Normal 36.0-46.0 [facility] Comment on above: Order Comment: Speci men Type: BLOOD SPECIMENOrdering Facility: [facility] Address: [address] [place] [address] Performed By: #### 5 7021-8 ####[facility] [place] LABCLIA [id number] [facility] [place] [address] [place] Hemoglobin (Bld) [Mass/Vol] 13.7 g/dL Normal 11.5-15.5 [facility] Comment on above: Order Comment: Speci men Type: BLOOD SPECIMENOrdering Facility: [facility] Address: [address] [place] [address] Performed By: #### 5 7021-8 ####[facility] [place] LABCLIA [id number] [place] [address] [place] Immature granulocytes (Bld) [#/Vol] 10*3/uL Normal <0.10 [facility] Comment on above: Order Comment: Speci men Type: BLOOD SPECIMENOrdering Facility: [facility] Address: [address] [place] [address] Performed By: #### 5 7021-8 ####[facility] [place] LABCLIA [id number] [place] [address] [facility] [place] Immature granulocytes/100 WBC (Bld) 0.1 % Normal [facility] Comment on above: Order Comment: Speci men Type: BLOOD SPECIMENOrdering Facility: [facility] Address: [address] [place] [address] Performed By: #### 5 7021-8 ####[facility] LABCLIA [id number] [place], [place] [id number] [place] [address] [place] Lymphocytes (Bld) [#/Vol] 1.29 10*3/uL Normal 1.00-4.00 [facility] Comment on above: Order Comment: Speci men Type: BLOOD SPECIMENOrdering Facility: [facility] Address: [address] [place] [address] Performed By: #### 5 7021-8 ####[facility] LABCLIA [id number] [address] Lymphocytes/100 WBC (Bld) 16.9 % Normal [facility] Comment on above: Order Comment: Speci men Type: BLOOD SPECIMENOrdering Facility: [facility] Address: [address] [place] [address] Performed By: #### 5 7021-8 ####[facility] LABCLIA [id number] [place], [place] [address] [place] [address] [place] MCH (RBC) [Entitic mass] 29.7 pg Normal 26.0-34.0 [facility] Comment on above: Order Comment: Speci men Type: BLOOD SPECIMENOrdering Facility: [facility] Address: [address] [place] [address] Performed By: #### 5 7021-8 ####[facility] LABCLIA [id number] [place] [address] [place] MCHC (RBC) [Mass/Vol] 31.9 g/dL Normal 30.5-36.0 [facility] Comment on above: Order Comment: Speci men Type: BLOOD SPECIMENOrdering Facility: [facility] Address: [address] [place] [address] Performed By: #### 5 7021-8 ####[facility] LABCLIA [id number] [place] [address] [place] [facility] MCV (RBC) [Entitic vol] 93.1 fL Normal 80.0-100.0 [facility] Comment on above: Order Comment: Speci men Type: BLOOD SPECIMENOrdering Facility: [facility] Address: [address] [place] [address] Performed By: #### 5 7021-8 ####[facility] [place] LABCLIA [id number] [place] [address] [place] Monocytes (Bld) [#/Vol] 0.84 10*3/uL Normal <0.87 [facility] Comment on above: Order Comment: Speci men Type: BLOOD SPECIMENOrdering Facility: [facility] Address: [address] [place] [address] Performed By: #### 5 7021-8 ####[facility] [place] LABCLIA [id number] [place] [address] [place] Monocytes/100 WBC (Bld) 11.0 % Normal [facility] Comment on above: Order Comment: Speci men Type: BLOOD SPECIMENOrdering Facility: [facility] Address: [address] [place] [address] Performed By: #### 5 7021-8 ####[facility] [place] LABCLIA [id number] [place] [address] [place] Neutrophils (Bld) [#/Vol] 5.18 10*3/uL Normal 1.45-7.50 [facility] Comment on above: Order Comment: Speci men Type: BLOOD SPECIMENOrdering Facility: [facility] Address: [address] [place] [address] Performed By: #### 5 7021-8 ####[facility] [place] LABCLIA [id number] [place] [address] [place] Neutrophils/100 WBC (Bld) 67.7 % Normal [facility] Comment on above: Order Comment: Speci men Type: BLOOD SPECIMENOrdering Facility: [facility] Address: [address] [place] [address] Performed By: #### 5 7021-8 ####[facility] [place] LABCLIA [id number] [facility] [place] [address] [place] Nucleated RBC (Bld) [#/Vol] Normal [facility] Comment on above: Order Comment: Speci men Type: BLOOD SPECIMENOrdering Facility: [facility] Address: [address] [place] [address] Performed By: #### 5 7021-8 ####[facility] [place] LABCLIA [id number] [facility] [place] [address] [place] Nucleated RBC/100 WBC (Bld) [Ratio] Normal [facility] Comment on above: Order Comment: Speci men Type: BLOOD SPECIMENOrdering Facility: [facility] Address: [address] [place] [address] Performed By: #### 5 7021-8 ####[facility] LABCLIA [id number] [facility] [place] [address] [place] Platelet mean volume (Bld) [Entitic vol] 10.8 fL Normal 9.0-12.7 [facility] Comment on above: Order Comment: Speci men Type: BLOOD SPECIMENOrdering Facility: [facility] Address: [address] [place] [address] Performed By: #### 5 7021-8 ####[facility] [place] LABCLIA [id number] [place] [address] [place] Platelets (Bld) [#/Vol] 223 10*3/uL Normal 150-400 [facility] Comment on above: Order Comment: Speci men Type: BLOOD SPECIMENOrdering Facility: [facility] Address: [address] [place] [address] Performed By: #### 5 7021-8 ####[facility] [place] LABCLIA [id number] [place] [address] [place] RBC (Bld) [#/Vol] 4.62 10*6/uL Normal 3.90-5.20 [facility] Comment on above: Order Comment: Speci men Type: BLOOD SPECIMENOrdering Facility: [facility] Address: [address] [place], [place] [address] Performed By: #### 5 7021-8 ####[facility] [place] LABCLIA [id number] [place] [address] [facility] WBC (Bld) [#/Vol] 7.65 10*3/uL Normal 3.70-11.00 [facility] Comment on above: Order Comment: Speci men Type: BLOOD SPECIMENOrdering Facility: [facility] Address: [address] [place], [place] [address] Performed By: #### 5 7021-8 ####[facility] [place] LABCLIA [id number] [place] [address] [facility] CNTHERAPYon 11-25-2023 CNTHERAPY OT/PT/Speech Visit ( LDPT) MICHAEL MEIER ([id number]) 1940 F Date Time Provider Department 11/25/23 8:30 AM SARAH MERCHANT LDFRANTZ Date Time Provider Department Center 11/25/2023 8:30 AM [id number], CARLA LDPT [facility] Reason for Visit: Physical Therapy [...] 1 tablet by mouth once daily. Normal [facility] Comprehensive metabolic 2000 panelon 11-25-2023 Albumin [Mass/Vol] 4.3 g/dL Normal 3.9-4.9 [facility] Comment on above: Order Comment: Lori mosqueda Type: BLOOD SPECIMEN Ordering Facility: [facility] Address: [address] [place] [address] Performed By: #### 2 4323-8, 73571-8, 3016-3 #### [facility] [place] [facility] CLIA [id number] [address] [place], [place] [address] [place] [address] [place] [facility] ALP [Catalytic activity/Vol] 97 U/L Normal 34-123 [facility] Comment on above: Order Comment: Lori mosqueda Type: BLOOD SPECIMEN Ordering Facility: [facility] Address: [address] [place] [address] Performed By: #### 2 4323-8, 88111-7, 3016-3 #### [facility] CLIA [id number] [address] [place] [address] [place] ALT With P-5'-P [Catalytic activity/Vol] 23 U/L Normal 7-38 [facility] Comment on above: Order Comment: Lori mosqueda Type: BLOOD SPECIMEN Ordering Facility: [facility] Address: [address] [place] [address] Performed By: #### 2 4323-8, 99427-0, 3016-3 #### [facility] CLIA [id number] [address] [place] [address] [place] [facility] Anion gap [Moles/Vol] 14 mmol/L Normal 8-15 [facility] Comment on above: Order Comment: Speci men Type: BLOOD SPECIMEN Ordering Facility: [facility] Address: [address] [place] [address] Performed By: #### 2 4323-8, 20024-6, 6-3 #### [facility] [place] [facility] CLIA [id number] [address] [place] [address] [place] AST With P-5'-P [Catalytic activity/Vol] 25 U/L Normal 13-35 [facility] Comment on above: Order Comment: Speci men Type: BLOOD SPECIMEN Ordering Facility: [facility] Address: [address] [place] [address] Performed By: #### 2 4323-8, 50591-7, 3015-3 #### [facility] [place] [facility] CLIA [id number] [address] [place] [address] [place] Bilirubin [Mass/Vol] 0.7 mg/dL Normal 0.2-1.3 [facility] Comment on above: Order Comment: Speci men Type: BLOOD SPECIMEN Ordering Facility: [facility] Address: [address] [place] [address] Performed By: #### 2 4323-8, 79990-8, 3015-3 #### [facility] [place] [facility] CLIA [id number] [address] [place] [address] [place] Calcium [Mass/Vol] 9.3 mg/dL Normal 8.5-10.2 [facility] Comment on above: Order Comment: Speci men Type: BLOOD SPECIMEN Ordering Facility: [facility] Address: [address] [place], [place] [address] Performed By: #### 2 4323-8, 72177-9, 3015-3 #### [facility] [place] [facility] CLIA [id number] [address] [place] [address] [place] Chloride [Moles/Vol] 102 mmol/L Normal 98-107 [facility] Comment on above: Order Comment: Speci men Type: BLOOD SPECIMEN Ordering Facility: [facility] Address: [address] [place] [address] Performed By: #### 2 4323-8, 91828-2, 3016-3 #### [facility] CLIA [id number] [address] [place] [address] [facility] CO2 [Moles/Vol] 26 mmol/L Normal 22-30 [facility] Comment on above: Order Comment: Speci men Type: BLOOD SPECIMEN Ordering Facility: [facility] Address: [facility] [place] [address] Performed By: #### 2 4323-8, 01228-5, 6-3 #### [facility] CLIA [id number] [address] [place] [address] [facility] Creatinine [Mass/Vol] 0.64 mg/dL Normal 0.58-0.96 [facility] Comment on above: Order Comment: Speci men Type: BLOOD SPECIMEN Ordering Facility: [facility] Address: [facility] [place] [address] Performed By: #### 2 4323-8, 73000-6, 6-3 #### [facility] CLIA [id number] [address] Creatinine and Glomerular filtration rate.predicted panel (S/P/Bld) 88 mL/min/1.73m??? Normal >=60 [facility] Comment on above: Order Comment: Speci men Type: BLOOD SPECIMEN [facility] [place] Address: [facility] [place] [address] Result Comment: Bina mated Glomerular Filtration Rate [...] actual GFR. Performed By: #### 2 4323-8, 99311-9, 3016-3 #### [facility] CLIA [id number] [address] [place] [address] [place] Glucose [Mass/Vol] 99 mg/dL Normal 74-99 [facility] Comment on above: Order Comment: Lori mosqueda Type: BLOOD SPECIMEN Ordering Facility: [facility] Address: [address] [place] [address] Result Comment: The [place] Diabetes Association (ADA) provides guidance for cutoff [...] Standards of Medical Care in Diabetes 2016, [place] Diabetes Association. Diabetes Care. 2016.39(Suppl 1). Performed By: #### 2 4323-8, 40259-9, 6-3 #### [facility] CLIA [id number] [address] [place] [address] [place] Potassium [Moles/Vol] 3.8 mmol/L Normal 3.7-5.1 [facility] Comment on above: Order Comment: Lori mosqueda Type: BLOOD SPECIMEN Ordering Facility: [facility] Address: [address] [place] [address] Performed By: #### 2 4323-8, 06185-9, 6-3 #### [facility] CLIA [id number] [address] [place] [address] [place] Protein [Mass/Vol] 6.8 g/dL Normal 6.3-8.0 [facility] Comment on above: Order Comment: Lori mosqueda Type: BLOOD SPECIMEN Ordering Facility: [facility] Address: [address] [place] [address] Performed By: #### 2 4323-8, 76866-8, 3016-3 #### [facility] CLIA [id number] [address] [place] [address] [place] Sodium [Moles/Vol] 142 mmol/L Normal 136-144 [facility] Comment on above: Order Comment: Lori mosqueda Type: BLOOD SPECIMEN Ordering Facility: [facility] Address: [address] [place] [address] Performed By: #### 2 4323-8, 67107-4, 3016-3 #### [facility] CLIA [id number] [address] [place] [address] [place] Urea nitrogen [Mass/Vol] 10 mg/dL Normal 7-21 [facility] Comment on above: Order Comment: Lori mosqueda Type: BLOOD SPECIMEN Ordering Facility: [facility] Address: [address] [place] [address] Performed By: #### 2 4323-8, 51556-5, 3016-3 #### [facility] CLIA [id number] [address] [place] [address] [place] HbA1c (Bld)on 11-25-2023 Average glucose Estimated from glycated hemoglobin (Bld) [Mass/Vol] 97 mg/dL Normal [facility] Comment on above: Order Comment: Lori mosqueda Type: BLOOD SPECIMENOrdering Facility: [facility] Address: [address] [place] [address] Result Comment: eAG: (Estimated average glucose) is a calculated value from HgbA1c and is major account representative of the average blood glucose level in the last 2-3 month period. Performed By: #### 5 5454-3 ####[facility] LABCLIA [id number] [place] [address] [place] HbA1c (Bld) [Mass fraction] 5.0 % Normal 4.3-5.6 [facility] Comment on above: Order Comment: Lori mosqueda Type: BLOOD SPECIMENOrdering Facility: [facility] Address: [address] [place] [address] Result Comment: Amer ican Diabetes Association guidelines indicate that patients with HgbA1c in the range 5.7-6.4% are at increased risk for development of diabetes, and intervention by lifestyle modification may be beneficial. HgbA1c greater or equal to 6.5% is considered diagnostic of diabetes. Performed By: #### 5 5454-3 ####[facility] LABCLIA [id number] [place] [address] [facility] OF ROB Lipid 1996 panelon 4 Cholesterol [Mass/Vol] 159 mg/dL Normal <[address] [facility] Comment on above: Order Comment: Lori mosqueda Type: BLOOD SPECIMEN Ordering Facility: [facility] Address: [address] [place] [address] Result Comment: <200 mg/dL, Desirable 200-239 mg/dL, Borderline high >239 mg/dL, High Performed By: #### 2 4323-8, 68628-4, 6-3 #### [facility] CLIA [id number] [address] [place] [address] [facility] Cholesterol in HDL [Mass/Vol] 74 mg/dL Normal >39 [facility] Comment on above: Order Comment: Lori mosqueda Type: BLOOD SPECIMEN Ordering Facility: [facility] Address: [address] [place] [address] Result Comment: 40-5 9 mg/dL, Acceptable >59 mg/dL, High: Negative risk factor for coronary heart disease <40 mg/dL, Low: Positive risk factor for coronary heart disease Performed By: #### 2 4323-8, 79062-5, 6-3 #### [facility] CLIA [id number] [address] [place] [address] [facility] Cholesterol in LDL [Mass/Vol] 54 mg/dL Normal <100 [facility] Comment on above: Order Comment: [facility] Type: BLOOD SPECIMEN Ordering Facility: [facility] Address: [address] [place] [address] Result Comment: <100 mg/dL, Optimal 100-129 mg/dL, Near optimal/above optimal 130-159 mg/dL, Borderline high 160-189 mg/dL, High >189 mg/dL, Very high Secondary prevention optimal LDL Cholesterol levels are recommended to be < 70 mg/dL Performed By: #### 2 4323-8, 80198-2, 3016-3 #### [facility] CLIA [id number] [address] [place] [address] [facility] Cholesterol in LDL/Cholesterol in HDL [Mass ratio] 0.73 {ratio} Normal <2.54 [facility] Comment on above: Order Comment: Lori mosqueda Type: BLOOD SPECIMEN Ordering Facility: [facility] Address: [address] [place] [address] Result Comment: Refe rence: 1. National Cholesterol Education Program ATP III Guideline At-A-Glance Quick Desk Reference: National Heart, Lung, and Blood [place]. National Institutes of Health. 2001: NIH Publication No. 01-3305. 2. An International Atherosclerosis Society position paper: global recommendations for the management of dyslipidemia: executive summary, Atherosclerosis. 2014: 232(2):410-413. Performed By: #### 2 4323-8, 70164-4, 3015-3 #### [facility] CLIA [id number] [address] [place] [address] [place] [facility] Cholesterol in VLDL [Mass/Vol] 31 mg/dL High <30 [facility] Comment on above: Order Comment: Lori mosqueda Type: BLOOD SPECIMEN Ordering Facility: [facility] Address: [address] [place] [address] Performed By: #### 2 4323-8, 81093-3, 3 #### [facility] CLIA [id number] [address] [place] [address] [facility] OF ROB Cholesterol non HDL [Mass/Vol] 85 mg/dL Normal <130 [facility] Comment on above: Order Comment: Lori mosqueda Type: BLOOD SPECIMEN Ordering Facility: [facility] Address: [address] [place] [address] Result Comment: <130 mg/dL, Optimal 130-159 mg/dL, Near optimal/above optimal 160-189 mg/dL, Borderline high 190-219 mg/dL, High >219 mg/dL, Very high Secondary prevention optimal non HDL Cholesterol levels are recommended to be <100 mg/dL Performed By: #### 2 4323-8, 89264-6, 3015-3 #### [facility] CLIA [id number] [address] [place] [address] [place] Cholesterol.total/Chol esterol in HDL [Mass ratio] 2.15 {ratio} Normal <5.10 [facility] Comment on above: Order Comment: Speci men Type: BLOOD SPECIMEN Ordering Facility: [facility] Address: [address] [place] [address] Performed By: #### 2 4323-8, 80801-3, 3015-3 #### [facility] CLIA [id number] [address] [place] [address] [facility] OF ROB FASTING TIME 12 hrs Normal [facility] Comment on above: Order Comment: Speci men Type: BLOOD SPECIMEN Ordering Facility: [facility] Address: [address] [place] [address] Performed By: #### 2 4323-8, 17468-1, 3015-3 #### [facility] CLIA [id number] [address] [place] [address] [facility] ROB Triglyceride [Mass/Vol] 153 mg/dL High <150 [facility] Comment on above: Order Comment: Speci men Type: BLOOD SPECIMEN Ordering Facility: [facility] Address: [address] [place] [address] Result Comment: <150 mg/dL, Normal 150-199 mg/dL, Borderline high 200-499 mg/dL, High >499 mg/dL, Very high Performed By: #### 2 4323-8, 36747-1, 3015-3 #### [facility] CLIA [id number] [address] [place] [address] [place] T3 SerPl-mCncon 11-25-2023 T3 [Mass/Vol] 99 ng/dL Normal 79-165 [facility] Comment on above: Order Comment: Speci men Type: BLOOD SPECIMENOrdering Facility: [facility] Address: [address] [place] [address] Performed By: #### 3 024-7, 3053-6 ####[facility] [id number] [address] OF [facility] T4 Free SerPl-mCncon 11-24-2 024 Free T4 [Mass/Vol] 1.6 ng/dL Normal 0.9-1.7 [facility] Comment on above: Order Comment: Speci men Type: BLOOD SPECIMENOrdering Facility: [facility] Address: [address] [place] [address] Performed By: #### 3 024-7, 3053-6 ####[facility]ORY[facility]IA [id number] [address] TSH SerPl-aCncon 11-25-2023 TSH Qn 4.510 m[IU]/L High 0.270-4.20 0 [facility] Comment on above: Order Comment: Speci men Type: BLOOD SPECIMENOrdering Facility: [facility] Address: [address] [place] [address] Performed By: #### 2 4323-8, 11287-9, 3016-3 ####[facility] LABCLIA [id number] [address] CNTHERAPYon 11-23-2023 CNTHERAPY OT/PT/Speech Visit ( LDPT) MICHAEL MEIER ([id number]) 1940 F Date Time Provider Department 11/23/23 2:15 PM SARAH MERCHANT LDPT Date Time Provider Department Center 11/23/2023 2:15 PM [id number], CARLA LDPT [facility] Reason for Visit: Physical Therapy [...] 1 tablet by mouth once daily. Normal [facility] [id number] 11-15-2023 [id number] O ID: [id number] Author: SARAH MERCHANT PT Service: ? Author Type: Physical Therapist Type: [id number] Filed: 11/15/2023 18:46 Note Text: [facility] Physical Therapy Plan of Care Certification Patient Name: Michael Meier : 1940 [facility] #: [id number] Date: 11/15/2023 To: Geeta Cadet,* From Therapist: [...] of Care: created on 11/15/23 through 01/14/24 [place] in home exercise program. Patient will demonstrate [...] Planned: 15 Planned Treatment Interventions: Therapeutic exercise (09054), Neuromuscular re-education (50735), Therapeutic activities (04326), Self-mcc management (87192), Gait Training (79667), Patient/Family/Caregiver Education, General Conditioning PLAN FOR NEXT [...] the treatment plan for Michael Augusta Meier, [facility]# [id number] for the period of 11/15/23 -- 01/14/24, established on 11/15/2023. Signature certifies the need for therapy services. Normal [facility] CNTHERAPYon 11-15-2023 CNTHERAPY OT/PT/Speech Visit ( LDPT) MICHAEL MEIER ([id number]) 1940 F Date Time Provider Department 11/15/23 4:30 PM SARAH MERCHANT Date Time Provider Department Center 11/15/2023 4:30 PM [id number] MERCHANT [facility] Reason for Visit: PT Eval [...] by mouth once daily. Letter Text Normal [facility] XR CHEST 2V FRONTAL/LATon [facility] EGD DIAGNOSTICon 01-08-2022 [facility] GLUCOSE, BLOOD (POC)on 10-20 Glucose [Mass/Vol] 116 mg/dL Abnormal 74 - 99 mg/dL [facility] UA DIP, URINE (POC)on 2021 BILIRUBIN UA (POCT) Negative Negative [facility] CLARITY UA (POCT) Clear [facility] COLOR UA (POCT) [place] [facility] GLUCOSE UA (POCT) 100 mg/dL Abnormal Negative mg/dL [facility] HEMOGLOBIN/BLOOD UA (POCT) Large Abnormal Negative [facility] KETONE UA (POCT) Trace Negative mg/dL [facility] LEUKOCYTES UA (POCT) Large Abnormal Negative [facility] NITRITE UA (POCT) Positive Abnormal Negative [facility] PH UA (POCT) 5.0 4.5 - 8.0 [facility] Protein Ql (U) 100 mg/dL Abnormal Negative mg/dL [facility] SPECIFIC GRAVITY UA (POCT) <=1.005 Abnormal 1.005 - 1.030 [facility] UROBILINOGEN UA (POCT) 4.0 E.U./dL Abnormal Eli l E.U./dL [facility] Basophil percentageon 2021 Chloride [Moles/Vol] 100 mmol/L 98-107 [facility] Work Phone: Glucose [Mass/Vol] 92 mg/dL 74-106 [facility] Work Phone: Potassium [Moles/Vol] 3.8 mmol/L 3.5-5.1 [facility] Work Phone: Comment on above: Slight Hemolysis, Re sult may be falsely increased. Sodium [Moles/Vol] 135 mmol/L 136-145 [facility] Work Phone: Laboratory - Chemistry and C hemistry - challengeon 09-10-2021 CO2 [Moles/Vol] 30.0 mmol/L 21.0-32.0 [facility] Work Phone: Urea nitrogen/Creatinine [Mass ratio] 19.7 mg/mg 10-20 [facility] Work Phone: No Panel Informationon 09-10 Estimated GFR (MDRD) Amer 82 mL/min >60 [facility] Work Phone: Comment on above: GFR Calc Estimated GFR (MDRD) Non-Af Amer 67 mL/min >60 [facility] Work Phone: Comment on above: Non- GFR Calc Serum or plasma calcium julee urement (mass/volume)on 09-10-2021 Calcium [Mass/Vol] 8.8 mg/dL 8.5-10.1 [facility] Work Phone: Serum or plasma creatinine m easurement (mass/volume)on 09-10-2021 Creatinine [Mass/Vol] 0.86 mg/dL 0.55-1.02 [facility] Work Phone: Comment on above: The validity of the calculated GFR & GFRAA in patients over 70 years has not been determined. Clinical correlation is essential. Serum or plasma urea nitroge n measurement (mass/volume)on 09-10-2021 Urea nitrogen [Mass/Vol] 17 mg/dL 7-18 [facility] Work Phone: Thin prep Papanicolaou smear with manual screeningon 09-10-2021 Thin prep Papanicolaou smear with manual screening 5 5-15 [facility] Work Phone: Basophil percentageon 2021 Basophil percentage 0 SEEN /hpf [facility] Work Phone: Chloride [Moles/Vol] 103 mmol/L 98-107 [facility] Work Phone: Glucose [Mass/Vol] 88 mg/dL 74-106 [facility] Work Phone: Potassium [Moles/Vol] 3.7 mmol/L 3.5-5.1 [facility] Work Phone: Sodium [Moles/Vol] 138 mmol/L 136-145 [facility] Work Phone: WBC (Bld) [#/Vol] 7.3 10*3/uL 4.4-11.0 [facility] Work Phone: Bilirubin Test strip Ql (U)o n 06-02-2021 Bilirubin Ql (U) Negative Negative [facility] Work Phone: Blood erythrocytes count (nu mber/volume)on 06-02-2021 RBC (Bld) [#/Vol] 4.57 10*6/uL 4.2-5.[address] [facility] Work Phone: Blood hemoglobin measurement (mass/volume)on 06-02-2021 Hemoglobin (Bld) [Mass/Vol] 13.5 g/dL 12.0-15.0 [facility] Work Phone: [phone] Blood platelet mean volumeon 06-02-2021 Platelet mean volume (Bld) [Entitic vol] 10.3 fL 6.2-12.0 [facility] Work Phone: [phone] Determination of erythrocyte mean corpuscular volume (MCV)on 06-02-2021 MCV (RBC) [Entitic vol] 88.8 fL 81-99 [facility] Work Phone: [phone] Hematocrit Auto (Bld) [Volum e fraction]on 06-02-2021 Hematocrit (Bld) [Volume fraction] 40.6 % 37-47 [facility] Work Phone: [phone] INR in Blood by Coagulation assayon 06-02-2021 INR Coag (Bld) [Relative time] 1.1 {INR} [facility] Work Phone: Ketones Test strip Ql (U)on 06-02-2021 Ketones Ql (U) Negative Negative [facility] Work Phone: Laboratory - Chemistry and C hemistry - challengeon 06-02-2021 CO2 [Moles/Vol] 30.0 mmol/L 21.0-32.0 [facility] Work Phone: [phone] Urea nitrogen/Creatinine [Mass ratio] 18.6 mg/mg 10-20 [facility] Work Phone: [phone] Laboratory - Coagulationon 0 06-02-2021 PT Coag (PPP) [Time] 13.1 s 11.7-14.9 [facility] Work Phone: Laboratory - Hematology and Cell countson 06-02-2021 Erythrocyte distribution width (RBC) [Entitic vol] 45.3 fL 35.1-43.9 [facility] Work Phone: Erythrocyte distribution width (RBC) [Ratio] 13.9 % 11.6-14.6 [facility] Work Phone: MCH (RBC) [Entitic mass] 29.5 pg 27.0-32.0 [facility] Work Phone: MCHC Auto (RBC) [Mass/Vol]on 06-02-2021 MCHC (RBC) [Mass/Vol] 33.3 g/dL 32-36 [facility] Work Phone: Mucus LM Ql (Urine sed)on Mucus Ql (Urine sed) 0 SEEN /hpf [facility] Work Phone: Nitrite Test strip Ql (U)on 06-02-2021 Nitrite Ql (U) Negative Negative [facility] Work Phone: No Panel Informationon 06-02 Estimated GFR (MDRD) Amer 104 mL/min >60 [facility] Work Phone: Comment on above: GFR Calc Estimated GFR (MDRD) Non-Af Amer 86 mL/min >60 [facility] Work Phone: Comment on above: Non- GFR Calc Thyroid Stimulating Hormone (TSH) 1.91 uIU/mL 0.358-3.74 [facility] Work Phone: Platelets bldon 06-02-2021 Platelets (Bld) [#/Vol] 240 10*3/uL 150-450 [facility] Work Phone: Protein Test strip Ql (U)on 06-02-2021 Protein Ql (U) 15 mg/dl Negative [facility] Work Phone: Serum or plasma calcium julee urement (mass/volume)on 06-02-2021 Calcium [Mass/Vol] 8.6 mg/dL 8.5-10.1 [facility] Work Phone: Serum or plasma creatinine m easurement (mass/volume)on 06-02-2021 Creatinine [Mass/Vol] 0.70 mg/dL 0.55-1.02 [facility] Work Phone: Comment on above: The validity of the calculated GFR & GFRAA in patients over 70 years has not been determined. Clinical correlation is essential. Serum or plasma urea nitroge n measurement (mass/volume)on 06-02-2021 Urea nitrogen [Mass/Vol] 13 mg/dL 7-18 [facility] Work Phone: Squamous epithelial cells de tection in urine sediment by light microscopyon 06-02-2021 Epithelial cells.squamous LM Ql (Urine sed) 0 SEEN /hpf [facility] Work Phone: Thin prep Papanicolaou smear with manual screeningon 06-02-2021 Thin prep Papanicolaou smear with manual screening 5 5-15 [facility] Work Phone: Urine blood detectionon - RBC Ql (U) Negative Negative [facility] Work Phone: RBC Ql (U) 0 SEEN /hpf [facility] Work Phone: Urine clarityon 06-02-2021 Clarity (U) Sl. Cloudy Clear [facility] Work Phone: Urine color determinationon 06-02-2021 Color (U) Yellow Yellow [facility] Work Phone: Urine glucose detectionon Glucose Ql (U) Normal mg/dl Normal [facility] Work Phone: Urine leukocyte esterase det ection by dipstickon 06-02-2021 Leukocyte esterase Test strip Ql (U) 25 /ul Negative [facility] Work Phone: Urine pHon 06-02-2021 pH (U) 6.5 [pH] [facility] Work Phone: Urine sediment bacteria coun t by microscopy (number/high power field)on 06-02-2021 Bacteria LM.HPF (Urine sed) [#/Area] 1 /[HPF] None Seen [facility] Work Phone: Urine specific gravity measu rementon 06-02-2021 Specific gravity (U) [Rel density] 1.015 [facility] Work Phone: Urobilinogen Auto test strip Ql (U)on 06-02-2021 Urobilinogen Ql (U) Normal mg/dl Normal [facility] Work Phone: BASIC METABOLIC PANELon 08-2 Anion gap [Moles/Vol] 8 mmol/L Low 10 - 20 [facility] Comment on above: Performed By: #### B MP #### [address] [address] Calcium [Mass/Vol] 8.4 mg/dL Low 8.6 - 10.3 [facility] Comment on above: Performed By: #### B MP #### [address] [address] Chloride [Moles/Vol] 104 mmol/L Normal 98 - 107 [facility] Comment on above: Performed By: #### B MP #### [address] [address] Creatinine [Mass/Vol] 0.50 mg/dL Normal 0.50 - 1.05 [facility] Comment on above: Performed By: #### B MP #### [address] [address] GFR- AM. >60 Normal >60 [facility] Comment on above: Result Comment: CALC ULATIONS OF ESTIMATED GFR ARE PERFORMED USING THE MDRD STUDY EQUATION FOR THE IDMS-TRACEABLE CREATININE METHODS. CLIN CHEM 2007;53:766-72 Performed By: #### B MP #### [address] [address] GFR-NON AM. >60 Normal >60 [facility] Comment on above: Performed By: #### B MP #### [address] [address] Glucose [Mass/Vol] 90 mg/dL Normal 74 - 99 [facility] Comment on above: Performed By: #### B MP #### [address] [address] HCO3 (Bld) [Moles/Vol] 31 mmol/L Normal 21 - 32 [facility] Comment on above: Performed By: #### B MP #### [address] [address] Potassium [Moles/Vol] 3.8 mmol/L Normal 3.5 - 5.3 [facility] Comment on above: Performed By: #### B MP #### [address] [address] Sodium [Moles/Vol] 139 mmol/L Normal 136 - 145 [facility] Comment on above: Performed By: #### B MP #### [address] [address] Urea nitrogen [Mass/Vol] 10 mg/dL Normal 6 - 23 [facility] Comment on above: Performed By: #### B MP #### [address] [address] BNPon 12-21-2020 Natriuretic peptide B (Bld) [Mass/Vol] 212 pg/mL High 0 - 99 [facility] Comment on above: Result Comment: . <1 00 pg/mL - Heart failure unlikely 100-299 pg/mL - Intermediate probability of acute heart . failure exacerbation. Correlate with clinical . context and patient history. >=300 pg/mL - Heart Failure likely. Correlate with clinical . context and patient history. BNP testing is performed using different testing methodology at [facility] than at other [facility]. Direct result comparisons should only be made within the same method. Performed By: #### B NP2 #### [address] [address] CBC AND DIFFERENTIALon 12-21 Basophils (Bld) [#/Vol] 0.00 10*3/uL Normal 0.00 - 0.10 [facility] Comment on above: Performed By: #### C BCDF #### [address] [address] Basophils/100 WBC (Bld) 0.9 % Normal 0.0 - 2.0 [facility] Comment on above: Performed By: #### C BCDF #### [address] [address] Eosinophils (Bld) [#/Vol] 0.10 10*3/uL Normal 0.00 - 0.40 [facility] Comment on above: Performed By: #### C BCDF #### [address] [address] Eosinophils/100 WBC (Bld) 2.5 % Normal 0.0 - 6.0 [facility] Comment on above: Performed By: #### C BCDF #### [address] [address] Erythrocyte distribution width (RBC) [Ratio] 15.3 % High 11.5 - 14.5 [facility] Comment on above: Performed By: #### C BCDF #### [address] [address] Hematocrit (Bld) [Volume fraction] 38.9 % Normal 36.0 - 46.0 [facility] Comment on above: Performed By: #### C BCDF #### [address] [address] Hemoglobin (Bld) [Mass/Vol] 12.8 g/dL Normal 12.0 - 16.0 [facility] Comment on above: Performed By: #### C BCDF #### [address] [address] Lymphocytes (Bld) [#/Vol] 0.70 10*3/uL Low 0.80 - 3.00 [facility] Comment on above: Performed By: #### C BCDF #### [address] [address] Lymphocytes/100 WBC (Bld) 13.3 % Normal 13.0 - 44.0 [facility] Comment on above: Performed By: #### C BCDF #### [address] [address] MCHC (RBC) [Mass/Vol] 33.0 g/dL Normal 32.0 - 36.0 [facility] Comment on above: Performed By: #### C BCDF #### [address] [address] MCV (RBC) [Entitic vol] 88 fL Normal 80 - 100 [facility] Comment on above: Performed By: #### C BCDF #### [address] [address] Monocytes (Bld) [#/Vol] 0.60 10*3/uL Normal 0.05 - 0.80 [facility] Services Comment on above: Performed By: #### C BCDF #### [address] [address] Monocytes/100 WBC (Bld) 11.5 % Normal 2.0 - 10.0 [facility] Comment on above: Performed By: #### C BCDF #### [address] [address] Neutrophils (Bld) [#/Vol] 3.80 10*3/uL Normal 1.60 - 5.50 [facility] Comment on above: Result Comment: Perc ent differential counts (%) should be interpreted in the context of the absolute cell counts (cells/L). Performed By: #### C BCDF #### [address] [address] Neutrophils/100 WBC (Bld) 71.8 % Normal 40.0 - 80.0 [facility] Comment on above: Performed By: #### C BCDF #### [address] [address] NUCLEATED RBC 0.2 /100 WBC Normal [facility] Comment on above: Performed By: #### C BCDF #### [address] [address] Platelets (Bld) [#/Vol] 160 10*3/uL Normal 150 - 450 [facility] Comment on above: Performed By: #### C BCDF #### [address] [address] RBC 4.44 x10E12/L Normal 4.00 - 5.20 [facility] Comment on above: Performed By: #### C BCDF #### [address] [address] WBC (Bld) [#/Vol] 5.3 10*3/uL Normal 4.4 - 11.3 [facility] Comment on above: Performed By: #### C BCDF #### [place] [address] CHEST 1 VIEWon 12-21-2020 CHEST 1 VIEW Patient Name: MICHAEL MEIER STUDY: CHEST 1 VIEW; 12/21/2020 3:49 pm INDICATION: SOB. COMPARISON: None. ACCESSION NUMBER(S): [id number] ORDERING CLINICIAN: BERNIE BARAJAS FINDINGS: CARDIOMEDIASTINAL SILHOUETTE: [...] Electronically signed by: TIFF FELDMAN MD Normal [facility] CORONAVIRUS 2019 BY PCRon SARS-CoV-2 (COVID-19) RNA DUSTIN+probe Ql (Unsp spec) Not detected Normal Not Detected [facility] Comment on above: Result Comment: . This test has received FDA Emergency Use Authorization (EUA) and has been verified by [facility]. This test is only authorized for the duration of time that circumstances exist to justify the authorization of the emergency use of in vitro diagnostic tests for the detection of SARS-CoV-2 virus and/or diagnosis of COVID-19 infection under section 564(b)(1) of the Act, 21 U.S.C. 360bbb-3(b)(1), unless the authorization is terminated or revoked sooner. [facility] is certified under CLIA-88 as qualified to perform high complexity testing. Testing is performed in the [facility] laboratory located at [address] [place] [address]. SARS-CoV-2/Flu/RSV Multiplex Test: Fact sheet for providers: https://www.fda.gov/media/130014/download Fact sheet for patients: https://www.fda.gov/media/647227/download Performed By: #### C OV19 ####[address] [address] DATE OF SYMPTOM ONSET [YYYYMMDD]? [id number] [facility] Comment on above: Performed By: #### C OV19 ####[address] [address] Lab Specimen Source Nasal, Nasopharyngeal [facility] Comment on above: Performed By: #### C OV19 ####[address] [address] Covid 19 Resultson 1 SARS-CoV-2 (COVID-19) RNA [...] You may also be contacted by the [facility] to see if any of your close [...] or Naproxen (Aleve) can also be used. Tzoz-nan-ajwwpue cough and cold medicines can be used according to the instructions on the package. Some nmmi-ejf-duofwea medicines also contain acetaminophen. Make sure you [...] water are not available, use alcohol-based hand security advisor. Avoid touching your eyes, nose, and mouth [...] for 24 flakito (more content not included)... [facility] Narrative Note - Outpatiento n 12-21-2020 Narrative Note - Outpatient Narrative Note: Description Patient presented to the clinic today for evaluation of cough, wheezing/shortness of breath, chest discomfort, and known exposure to COVID-19. Visibly dyspneic upon initial presentation to the front counter attendant; SpO2 checked and was 94%. In light of symptoms (and as we do not have nebulizer treatments available in this urgent care), advised would be best to seek care at the ER [facility]. Patient verbalized understanding and agreed; no questions/concerns verbalized. Declined offer for emergency transport. Electronic Signatures: Kat Gleason (BAFFLE MOUNTER-PERFORMANCE IMPROVEMENT COORDINATOR) (Signed 21-Dec-2020 14:56) Authored: Narrative Note - OP Last Updated: 21-Dec-2020 14:56 by Kat Gleason (BAFFLE MOUNTER-PERFORMANCE IMPROVEMENT COORDINATOR) [facility] Provider Note - ED v3on 12-02 Provider [...] Authorization (EUA) and has been verified by [facility]. This test is only authorized for [...] independently She is placed on a continuous rn cardiac cath with pulse oximetry monitoring. Old records and [...] computer instructions (more content not included)... Normal [facility] Risk Screen - Adult Emergenc yon 12-21-2020 Risk Screen - Adult Emergency Preferred Language: Preferred Language: Preferred Language for Discussing Health Care (patient/designee)[place] Advanced Directives: Advance Directive/DNRno Family Violence Adult: Abuse Screen: Are you or have you been threatened or abused physically, emotionally, or sexually by anyoneno Learning Assessment (Patient): Learning Assessment (Patient): Patient is Able to be Assessed for Learningyes Factors Influencing Readiness to Learnacuteness of illness Factors that Impact Ability to Learnnone Devices/Methods Used to Communicatenone Learning Preferencesaudio Cultural Considerationsnone Developmental Considerationsnone Jehovah'S Witness Considerationsnone Learning Assessment (Other Learner): Learning Assessment (Other Learner): Other learner availableno Pressure Injury/TB/Substance: Pressure Injury: Pressure Injury Present on Admissionno Do you have a coughyes... Has your cough lasted longer than 2 weeksno Smoking Statusnever smoker Alcohol Usedenies Drug Usedenies Drug 2 Usedenies Admission Risk Screen: Significant IndicatorsComplete CAGE: CAGE: Is this an injured patient at a Trauma Center ([facility]/[place]): no Electronic Signatures: Kimberlee Albarran (GLYNN) (Signed 21-Dec-2020 15:07) Authored: Preferred Language, Advanced Directives, Family Violence Adult, Learning Assessment (Patient), Learning Assessment (Other Learner), Pressure Injury/TB/Substance, Pressure Injury, CAGE Last Updated: 21-Dec-2020 15:07 by Kimberlee Albarran (GLYNN) Normal [facility] TROPONIN Ion 12-21-2020 Troponin I.cardiac [Mass/Vol] ng/mL Normal 0.00 - 0.03 [facility] Comment on above: Result Comment: LESS THAN [...] is performed using different testing methodology at [facility] than at other [facility] hospitals. Direct result comparisons should only be made within the same method. Performed By: #### T ROP2 #### [place] [address] [place] [id number] Triage - EDon 12-21-2020 Triage - ED [...] Accompanied By: self Language: Spoken Language Preferred: [place] Reading Language Preferred: [place] On Car Supervisor Requested: no tv production assistant was requested MDRO: History of MDRO: no [...] Updated: 21-Dec-2020 15:06 by Kimberlee Albarran (GLYNN) [facility] Office Visiton 10-22-2016 Documentation of current medications (procedure) Done Invalid Interpretation Code [employer] Work Phone: Fall risk assessment Yes Invalid Interpretation Code [employer] Work Phone: Clinical Lists Update: Prelo union steward 10-21-2016 Left ventricular Ejection fraction 55 % Invalid Interpretation Code [employer] Work Phone: Office Visit: [facility] 04-15-20 Dietary management education, guidance, and counseling (procedure) yes Invalid Interpretation Code [facility] Work Phone: [phone] Protein mass conc Done [facility] Work Phone: [phone] Lab Report: Basic Metabolic Profile (BMP)on 05-28-2015 Anion gap 7 mmol/L Invalid Interpretation Code 5-15 [facility] Work Phone: [phone] Anion gap molar conc 7 mmol/L 5-[address] [facility] Work Phone: [phone] Calcium mass conc 8.8 mg/dL Invalid Interpretation Code 8.5-10.1 [facility] Work Phone: [phone] Chloride molar conc 106 mmol/L Invalid Interpretation Code 98-107 [facility] [employer] Work Phone: [phone] CO2 32.0 mmol/L Invalid Interpretation Code 21.0-32.0 [facility] [employer] Work Phone: [phone] CO2 ppres (BldV) 32.0 mmol/L 21.0-32.0 [facility] [employer] Work Phone: [phone] Creatinine mass conc 0.64 mg/dL Invalid Interpretation Code 0.55-1.20 [facility] [employer] Work Phone: [phone] eGFR (non-black) 117 mL/min/{1.73_m2} Invalid Interpretation Code >60 [facility] [employer] Work Phone: [phone] EST GFR - AA 117 mL/min >60 [facility] [employer] Work Phone: [phone] GFR/1.73 sq M predicted among non-blacks MDRD vol rate/area (S/P/Bld) 97 mL/min/{1.73_m2} Invalid Interpretation Code >60 [facility] [employer] Work Phone: [phone] Glucose 84 mg/dL Invalid Interpretation Code 70-110 [facility] [employer] Work Phone: [phone] Glucose mass conc 84 mg/dL 70-110 [facility] [employer] Work Phone: [phone] Potassium molar conc 4.6 mmol/L Invalid Interpretation Code 3.5-5.1 [facility] [employer] Work Phone: [phone] Sodium molar conc 145 mmol/L Invalid Interpretation Code 136-145 [facility] [employer] Work Phone: [phone] Urea nitrogen mass conc 12 mg/dL Invalid Interpretation Code 7-18 [facility] [employer] Work Phone: [phone] Urea nitrogen/Creatinine mass ratio 18.8 RATIO Invalid Interpretation Code 10-20 [employer] Work Phone: [phone] Office Visiton 05-28-2015 General cardiovascular disease 10Y risk [#] [place].D'Agost[place] 11 % Invalid Interpretation Code [employer] Work Phone: [phone] Tobacco smoking status NHIS Never smoker [employer] Work Phone: [phone] Tobacco use CP Never smoker Invalid Interpretation Code [employer] Work Phone: [phone] Clinical Lists Update: Prelo union steward 03-07-2015 Cholesterol in HDL mass conc 63 mg/dL Invalid Interpretation Code [employer] Work Phone: [phone] Cholesterol in LDL mass conc 138 mg/dL High [employer] Work Phone: [phone] Cholesterol in LDL/Cholesterol in HDL mass ratio 2.19 Invalid Interpretation Code [employer] Work Phone: [phone] Cholesterol mass conc 227 mg/dL High [facility] Work Phone: [phone] Cholesterol.total/Chol esterol in HDL mass ratio 3.60 {ratio} Invalid Interpretation Code [employer] Work Phone: [phone] Lipoprotein.pre-beta mass conc 26 mg/dL Invalid Interpretation Code [employer] Work Phone: [phone] Thyrotropin Qn 2.560 u[iU]/mL Invalid Interpretation Code [employer] Work Phone: [phone] Triglyceride mass conc 128 mg/dL Invalid Interpretation Code [employer] Work Phone: [phone] Replaced Document: [employer] [facility] CG Observationson 11-22-2014 EKG QRS axis 8 deg [employer] Work Phone: [phone] electrocardiogram interpretation Sinus Rhythm -First degree A-V block Lisa = 246BORDERLINE RHYTHM Invalid Interpretation Code [employer] Work Phone: [phone] GE use only - for [employer] import when terms are not otherwise specified 452 ms Invalid Interpretation Code [employer] Work Phone: Interpretation Sinus Rhythm -First degree A-V block Lisa = 246BORDERLINE RHYTHM [employer] Work Phone: P [place] -15 deg [employer] Work Phone: P wave axis, electrocardiogram -15 deg Invalid Interpretation Code [employer] Work Phone: CO Interval 246 ms [employer] Work Phone: CO interval, electrocardiogram 246 ms Invalid Interpretation Code [employer] Work Phone: Pulse (Heart Rate) 60 /min Invalid Interpretation Code [employer] Work Phone: QRS axis, electrocardiogram 8 deg Invalid Interpretation Code [employer] Work Phone: QRS Duration 106 ms [employer] Work Phone: QRS duration, electrocardiogram 106 ms Invalid Interpretation Code [employer] Work Phone: QT Interval new path ms [employer] Work Phone: QT interval, electrocardiogram new path ms Invalid Interpretation Code [employer] Work Phone: QTc Monahan 452 ms [employer] Work Phone: T [place] 21 deg [employer] Work Phone: T wave axis, electrocardiogram 21 deg Invalid Interpretation Code [employer] Work Phone: [phone] Office Visiton 05-25-2014 cardiac risk group B Invalid Interpretation Code [employer] Work Phone: [phone] Lab Report: CBCDon 4 Absolute Neutrophil count 5.4 X10 3/UL Normal 2.0-7.7 [employer] Work Phone: [phone] ANC 5.4 X10 3/UL Normal 2.0-7.7 [employer] Work Phone: [phone] Basophils/100 leukocytes 0.6 % Normal 0-1 [employer] Work Phone: [phone] Basophils/100 WBC (Bld) 0.6 % Normal 0-1 [employer] Work Phone: Eosinophils/100 leukocytes 1.4 % Normal [...] mass conc (Bld) 14.4 g/dL Normal 12.0-15.0 [facility] Work Phone: Lymphocytes/100 leukocytes 23.0 % Normal 19-41 [facility] Work Phone: Lymphocytes/100 WBC (Bld) 23.0 % Normal 19-41 [facility] Work Phone: MCH 29.1 pg Normal 27.0-32.0 [facility] Work Phone: MCH Entitic mass (RBC) 29.1 pg Normal 27.0-32.0 [facility] Work Phone: MCHC 34.6 G/GL Normal 32-36 [facility] Work Phone: MCHC mass conc (RBC) 34.6 G/GL Normal 32-[address] [facility] Work Phone: MCV 84.0 fL Normal 81-99 [facility] Work Phone: MCV Entitic volume (RBC) 84.0 fL Normal 81-99 [facility] Work Phone: Monocytes/100 leukocytes 8.0 % Normal 0-10 [facility] Work Phone: Monocytes/100 WBC (Bld) 8.0 % Normal 0-10 [facility] Work Phone: Neutrophils/100 leukocytes 66.9 % Normal 47-70 [facility] Work Phone: Neutrophils/100 WBC (Bld) 66.9 % Normal 47-70 [facility] Work Phone: [phone] Platelet mean volume Entitic volume (Bld) 10.7 fL Normal 6.2-12.0 [facility] Work Phone: [phone] Platelets 209 10*3/mm3 Normal 150-450 [facility] Work Phone: [phone] Platelets #/vol (Bld) 209 10*3/mm3 Normal 150-450 [facility] Work Phone: [phone] PMV by [place] 10.7 fL Normal 6.2-12.0 [facility] Work Phone: [phone] RBC #/vol (Bld) 4.95 10*6/uL Normal 4.2-5.4 [facility] Work Phone: [phone] WBC #/vol (Bld) 8.1 10*3/uL Normal 4.4-11.0 [facility] Work Phone: [phone] WBC (Leukocytes) 8.1 10*3/uL Normal 4.4-11.0 [facility] Work Phone: [phone] Lab Report: MGon 07-19-2013 Magnesium mass conc 1.9 mg/dL Normal 1.8-2.4 [facility] Work Phone: [phone] Lab Report: T4on 05-18-2012 T4 mass conc 11.9 ug/dL Normal 4.8-13.9 [facility] Work Phone: [phone] Lab Report: PTon 05-06-2011 INR Coag RelTime (PPP) 1.0 {INR} Normal [facility] Work Phone: [phone] INR in blood by coagulation 1.0 {INR} Normal [facility] Work Phone: [phone] prothrombin time, actual/normal, ratio 12.8 SECONDS Normal 11.9-14.4 [facility] Work Phone: [phone] PTP 12.8 SECONDS Normal 11.9-14.4 [facility] Work Phone: [phone] Lab Report: PTTon 05-06-2011 aPTT Coag time (Bld) 26 s Normal 24.1-36.2 [facility] Work Phone: Replaced Document: Hyun Esqueda 05-05-2011 Pulse (Heart Rate) 420 ms Invalid Interpretation Code [facility] Work Phone: [phone] Vital Signs Date Time Vital Sign Value Performing Clinician Facility 12-03-2024 14:55-0400 Body temperature 97.5 [degF] Dr. Michael Puga DO Work Phone: 4(437)215-723919 [place] [address] 12-03-2024 14:55-0400 Diastolic blood pressure 55 mm[Hg] Dr. Michael Puga DO Work Phone: 6(401)487-982143 [place] [address] 12-03-2024 14:55-0400 Heart rate 61 /min Dr. Michael Puga DO Work Phone: 9(246)730-958343 [place] [address] 12-03-2024 14:55-0400 Respiratory rate 18 /min Dr. Michael Puga DO Work Phone: 8(681)927-441219 [place] [address] 12-03-2024 14:55-0400 SaO2% (BldA) [Mass fraction] 96 % Dr. Michael Puga DO Work Phone: 3(934)909-575319 [place] [address] 12-03-2024 14:55-0400 Systolic blood pressure 154 mm[Hg] Dr. Michael Puga DO Work Phone: 9(970)351-636219 [place] [address] 12-03-2024 06:00-0400 Body mass index (BMI) [Ratio] 40.1 kg/m2 Dr. Michael Puga DO Work Phone: 3(729)728-083219 [place] [address] 12-03-2024 06:00-0400 Body weight 109.[address] Michael Puga DO Work Phone: 1(851)651-691343 [place] [address] 12-03-2024 03:35-0400 Inhaled oxygen flow rate 2 L/min Dr. Michael Puga DO Work Phone: 5(959)808-449019 [place] [address] 11-30-2024 15:27-0400 Body height 165.[address] Michael Puga DO Work Phone: 6(590)260-034243 [place] [address] 11-29-2024 22:31-0400 Body temperature 98 [degF] Dr. Michael Puga DO Work Phone: 8(804)887-036743 [place] [address] 11-29-2024 22:31-0400 Diastolic blood pressure 56 mm[Hg] Dr. Michael Puga DO Work Phone: 8(402)522-400743 [place] [address] 11-29-2024 22:31-0400 Heart rate 61 /min Dr. Michael Puga DO Work Phone: 5(557)572-226543 [place] [address] 11-29-2024 22:31-0400 Respiratory rate 17 /min Dr. Michael Puga DO Work Phone: 9(304)005-003843 [place] [address] 11-29-2024 22:31-0400 SaO2% (BldA) [Mass fraction] 92 % Dr. Michael Puga DO Work Phone: 5(504)155-655943 [place] [address] 11-29-2024 22:31-0400 Systolic blood pressure 146 mm[Hg] Dr. Michael Puga DO Work Phone: 2(004)104-414243 [place] [address] 11-29-2024 15:58-0400 Body height 165.[address] Michael Puga DO Work Phone: 8(487)451-129243 [place] [address] 11-29-2024 15:58-0400 Body mass index (BMI) [Ratio] 41.8 kg/m2 Dr. Michael Puga DO Work Phone: 4(902)138-833943 [place] [address] 11-29-2024 15:58-0400 Body weight 114.[address] Michael Puga DO Work Phone: 8(364)316-500443 [place] [address] 11-02-2024 09:50-0400 Body height 165.[address] Michael Puga DO Work Phone: 9(637)996-203243 [place] [address] 11-02-2024 09:46-0400 Body mass index (BMI) [Ratio] 39.4 kg/m2 Dr. Michael Puga DO Work Phone: 9(421)021-908043 [place] [address] 11-02-2024 09:46-0400 Body weight 107.[address] Michael Puga DO Work Phone: [facility] 11-02-2024 09:46-0400 Diastolic blood pressure 62 mm[Hg] Dr. Michael Puga DO Work Phone: [facility] 11-02-2024 09:46-0400 Heart rate 59 /min Dr. Michael Puga DO Work Phone: [facility] 11-02-2024 09:46-0400 Respiratory rate 18 /min Dr. Michael Puga DO Work Phone: [facility] 11-02-2024 09:46-0400 Systolic blood pressure 152 mm[Hg] Dr. Michael Puga DO Work Phone: [facility] 10-27-2024 12:00-0400 Diastolic blood pressure 52 mm[Hg] Sarah Merchant PT Work Phone: [facility] 10-27-2024 12:00-0400 Heart rate 63 /min Sarah Merchant PT Work Phone: [facility] 10-27-2024 12:00-0400 SaO2% (BldA) [Mass fraction] 96 % Sarah Merchant PT Work Phone: [facility] 10-27-2024 12:00-0400 Systolic blood pressure 152 mm[Hg] Sarah Merchant PT Work Phone: [facility] 08-30-2024 15:17-0400 Body mass index (BMI) [Ratio] 38.27 kg/m2 Michael Levyrison DO Work Phone: [facility] 08-30-2024 15:17-0400 Body temperature 97 [degF] Michael Puga DO Work Phone: [facility] 08-30-2024 15:17-0400 Body weight 104.33 kg Michael Puga DO Work Phone: [facility] 08-30-2024 15:17-0400 Diastolic blood pressure 64 mm[Hg] Michael Puga DO Work Phone: [facility] 08-30-2024 15:17-0400 Heart rate 64 /min Michael Puga DO Work Phone: [facility] 08-30-2024 15:17-0400 Respiratory rate 20 /min Michael Puga DO Work Phone: [facility] 08-30-2024 15:17-0400 Systolic blood pressure 148 mm[Hg] Michael Puga DO Work Phone: [facility] 08-17-2024 15:17-0400 Diastolic blood pressure 68 mm[Hg] Asia Sherry BAFFLE MOUNTER.PERFORMANCE IMPROVEMENT COORDINATOR Work Phone: [facility] 08-17-2024 15:17-0400 Heart rate 61 /min Asia Sherry BAFFLE MOUNTER.PERFORMANCE IMPROVEMENT COORDINATOR Work Phone: [facility] 08-17-2024 15:17-0400 SaO2% (BldA) [Mass fraction] 98 % Asia Sherry BAFFLE MOUNTER.PERFORMANCE IMPROVEMENT COORDINATOR Work Phone: [facility] 08-17-2024 15:17-0400 Systolic blood pressure 136 mm[Hg] Asia Sherry BAFFLE MOUNTER.PERFORMANCE IMPROVEMENT COORDINATOR Work Phone: [facility] 06-21-2024 17:27-0500 Body mass index (BMI) [Ratio] 36.78 kg/m2 Michael Puga DO Work Phone: [facility] 06-21-2024 17:27-0500 Body temperature 97.7 [degF] Michael Puga DO Work Phone: [facility] 06-21-2024 17:27-0500 Body weight 100.25 kg Michael Puga DO Work Phone: [facility] 06-21-2024 17:27-0500 Diastolic blood pressure 70 mm[Hg] Michael Puga DO Work Phone: [facility] 06-21-2024 17:27-0500 Heart rate 64 /min Michael Puga DO Work Phone: [facility] 06-21-2024 17:27-0500 Respiratory rate 20 /min Michael Puga DO Work Phone: [facility] 06-21-2024 17:27-0500 Systolic blood pressure 160 mm[Hg] Michael Puga DO Work Phone: [facility] 06-01-2024 13:20-0500 Body height 165.[address] Michael Puga DO Work Phone: [facility] 06-01-2024 13:20-0500 Body mass index (BMI) [Ratio] 36.6 kg/m2 Dr. Michael Puga DO Work Phone: 6(705)460-492419 [place] [address] 06-01-2024 13:20-0500 Body weight 99.[address] Michael Puga DO Work Phone: 1(556)694-398043 [place] [address] 06-01-2024 13:20-0500 Diastolic blood pressure 73 mm[Hg] Dr. Michael Puga DO Work Phone: 1(697)079-722443 [place] [address] 06-01-2024 13:20-0500 Heart rate 60 /min Dr. Michael Puga DO Work Phone: 3(858)991-330543 [place] [address] 06-01-2024 13:20-0500 Respiratory rate 18 /min Dr. Michael Puga DO Work Phone: 9(226)728-333343 [place] [address] 06-01-2024 13:20-0500 SaO2% (BldA) [Mass fraction] 96 % Dr. Michael Puga DO Work Phone: 9(838)692-827319 [place] [address] 06-01-2024 13:20-0500 Systolic blood pressure 161 mm[Hg] Dr. Michael Puga DO Work Phone: 5(095)925-876619 [place] [address] 05-11-2024 13:05-0500 Body mass index (BMI) [Ratio] 37.01 kg/m2 Key Portillo APRN.PERFORMANCE IMPROVEMENT COORDINATOR Work Phone: [facility] 05-11-2024 13:05-0500 Body weight 100.88 kg Key Portillo APRN.PERFORMANCE IMPROVEMENT COORDINATOR Work Phone: [facility] 05-11-2024 13:05-0500 Diastolic blood pressure 58 mm[Hg] Key Portillo BAFFLE MOUNTER.PERFORMANCE IMPROVEMENT COORDINATOR Work Phone: [facility] 05-11-2024 13:05-0500 Heart rate 60 /min Key Portillo BAFFLE MOUNTER.PERFORMANCE IMPROVEMENT COORDINATOR Work Phone: [facility] 05-11-2024 13:05-0500 SaO2% (BldA) [Mass fraction] 95 % Key Portillo BAFFLE MOUNTER.PERFORMANCE IMPROVEMENT COORDINATOR Work Phone: [facility] 05-11-2024 13:05-0500 Systolic blood pressure 130 mm[Hg] Key Portillo BAFFLE MOUNTER.PERFORMANCE IMPROVEMENT COORDINATOR Work Phone: [facility] 05-02-2024 12:35-0500 Body temperature 97.9 [degF] Dr. Michael Puga DO Work Phone: 6(921)609-528419 [place] [address] 05-02-2024 12:35-0500 Diastolic blood pressure 56 mm[Hg] Dr. Michael Puga DO Work Phone: 7(149)856-852719 [place] [address] 05-02-2024 12:35-0500 Heart rate 60 /min Dr. Michael Puga DO Work Phone: 6(258)229-997419 [place] [address] 05-02-2024 12:35-0500 Respiratory rate 16 /min Dr. Michael Puga DO Work Phone: 7(996)715-720619 [place] [address] 05-02-2024 12:35-0500 SaO2% (BldA) [Mass fraction] 92 % Dr. Michael Puga DO Work Phone: 7(687)279-672819 [place] [address] 05-02-2024 12:35-0500 Systolic blood pressure 150 mm[Hg] Dr. Michael Puga DO Work Phone: 5(285)907-975319 [place] [address] 05-02-2024 12:11-0500 Body weight 101.[address] Michael Puga DO Work Phone: [phone] [place] [address] 05-02-2024 07:43-0500 Inhaled oxygen flow rate 2 L/min Dr. Michael Puga DO Work Phone: [phone] [place] [address] 05-02-2024 05:33-0500 Body mass index (BMI) [Ratio] 37.3 kg/m2 Dr. Michael Puga DO Work Phone: [facility] 05-02-2024 01:40-0500 Inhaled oxygen concentration 30 % Dr. Michael Puga DO Work Phone: [facility] 03-31-2024 11:40-0500 Diastolic blood pressure 78 mm[Hg] Raymundo De León MD Work Phone: [facility] 03-31-2024 11:40-0500 Heart rate 60 /min Raymundo De León MD Work Phone: [facility] 03-31-2024 11:40-0500 SaO2% (BldA) [Mass fraction] 95 % Raymundo De León MD Work Phone: [facility] 03-31-2024 11:40-0500 Systolic blood pressure 156 mm[Hg] Raymundo De León MD Work Phone: [facility] 03-31-2024 11:20-0500 Respiratory rate 18 /min Raymundo De León MD Work Phone: [facility] 03-31-2024 10:39-0500 Body height 165.1 cm Raymundo De León MD Work Phone: [facility] 03-31-2024 10:39-0500 Body mass index (BMI) [Ratio] 38.27 kg/m2 Raymundo De León MD Work Phone: [facility] 03-31-2024 10:39-0500 Body temperature 98.1 [degF] Raymundo De León MD Work Phone: [facility] 03-31-2024 10:39-0500 Body weight 104.33 kg Raymundo De León MD Work Phone: [facility] 03-27-2024 14:15-0500 Body height 165.1 cm Pac 1 Work Phone: [facility] 03-27-2024 14:15-0500 Body mass index (BMI) [Ratio] 38.27 kg/m2 Pacc 1 Work Phone: [facility] 03-27-2024 14:15-0500 Body temperature 97.5 [degF] Pacc 1 Work Phone: [facility] 03-27-2024 14:15-0500 Body weight 104.33 kg Pacc 1 Work Phone: [facility] 03-27-2024 14:15-0500 Diastolic blood pressure 54 mm[Hg] Pacc 1 Work Phone: [facility] 03-27-2024 14:15-0500 Heart rate 60 /min Pacc 1 Work Phone: [facility] 03-27-2024 14:15-0500 Respiratory rate 16 /min Pacc 1 Work Phone: [facility] 03-27-2024 14:15-0500 SaO2% (BldA) [Mass fraction] 94 % Pacc 1 Work Phone: [facility] 03-27-2024 14:15-0500 Systolic blood pressure 122 mm[Hg] Pacc 1 Work Phone: [facility] 03-23-2024 12:00-0500 Diastolic blood pressure 69 mm[Hg] Sarah Merchant PT Work Phone: [facility] 03-23-2024 12:00-0500 Heart rate 66 /min Sarah Merchant PT Work Phone: [facility] 03-23-2024 12:00-0500 SaO2% (BldA) [Mass fraction] 95 % Sarah Merchant PT Work Phone: [facility] 03-23-2024 12:00-0500 Systolic blood pressure 170 mm[Hg] Sarah Merchant PT Work Phone: [facility] 03-13-2024 14:18-0500 Body height 165.1 cm Sharon Jarrett APRN.PERFORMANCE IMPROVEMENT COORDINATOR Work Phone: [facility] 03-13-2024 14:18-0500 Body mass index (BMI) [Ratio] 38.51 kg/m2 Sharon Jarrett APRN.PERFORMANCE IMPROVEMENT COORDINATOR Work Phone: [facility] 03-13-2024 14:18-0500 Body temperature 97.5 [degF] Sharon John BAFFLE MOUNTER.PERFORMANCE IMPROVEMENT COORDINATOR Work Phone: [facility] 03-13-2024 14:18-0500 Body weight 104.96 kg Sharon John BAFFLE MOUNTER.PERFORMANCE IMPROVEMENT COORDINATOR Work Phone: [facility] 03-13-2024 14:18-0500 Diastolic blood pressure 75 mm[Hg] Sharon John BAFFLE MOUNTER.PERFORMANCE IMPROVEMENT COORDINATOR Work Phone: [facility] 03-13-2024 14:18-0500 Heart rate 71 /min Sharon John BAFFLE MOUNTER.PERFORMANCE IMPROVEMENT COORDINATOR Work Phone: [facility] 03-13-2024 14:18-0500 SaO2% (BldA) [Mass fraction] 93 % Sharon John BAFFLE MOUNTER.PERFORMANCE IMPROVEMENT COORDINATOR Work Phone: [facility] 03-13-2024 14:18-0500 Systolic blood pressure 184 mm[Hg] Sharon John BAFFLE MOUNTER.PERFORMANCE IMPROVEMENT COORDINATOR Work Phone: [facility] 03-01-2024 17:08-0400 Body mass index (BMI) [Ratio] 38.12 kg/m2 Michael Puga DO Work Phone: [facility] 03-01-2024 17:08-0400 Body temperature 97.11 [degF] Michael Puga DO Work Phone: [facility] 03-01-2024 17:08-0400 Body weight 101.15 kg Michael Puga DO Work Phone: [facility] 03-01-2024 17:08-0400 Diastolic blood pressure 80 mm[Hg] Michael Puga DO Work Phone: [facility] 03-01-2024 17:08-0400 Heart rate 64 /min Michael Puga DO Work Phone: [facility] 03-01-2024 17:08-0400 Respiratory rate 20 /min Michael Puga DO Work Phone: [facility] 03-01-2024 17:08-0400 Systolic blood pressure 144 mm[Hg] Michael Puga DO Work Phone: [facility] 12-07-2023 16:00-0400 Diastolic blood pressure 68 mm[Hg] Wilfred Mcclellan SHUTDOWN COORDINATOR Work Phone: [facility] 12-07-2023 16:00-0400 Systolic blood pressure 144 mm[Hg] Wilfred Mcclellan SHUTDOWN COORDINATOR Work Phone: [facility] 12-01-2023 13:50-0400 Body mass index (BMI) [Ratio] 38.8 kg/m2 Michael Puga DO Work Phone: [facility] 12-01-2023 13:50-0400 Body temperature 98.01 [degF] Michael Puga DO Work Phone: [facility] 12-01-2023 13:50-0400 Body weight 102.97 kg Michael Puga DO Work Phone: [facility] 12-01-2023 13:50-0400 Diastolic blood pressure 76 mm[Hg] Michael Puga DO Work Phone: [facility] 12-01-2023 13:50-0400 Heart rate 64 /min Michael Puga DO Work Phone: [facility] 12-01-2023 13:50-0400 Respiratory rate 24 /min Mcihael Puga DO Work Phone: [facility] 12-01-2023 13:50-0400 Systolic blood pressure 146 mm[Hg] Michael Puga DO Work Phone: [facility] 10-14-2023 13:24-0400 Body mass index (BMI) [Ratio] 38.46 kg/m2 Key Portillo APRN.PERFORMANCE IMPROVEMENT COORDINATOR Work Phone: [facility] 10-14-2023 13:24-0400 Body weight 102.06 kg Key Portillo APRN.PERFORMANCE IMPROVEMENT COORDINATOR Work Phone: [facility] 10-14-2023 13:24-0400 Diastolic blood pressure 58 mm[Hg] Key Portillo BAFFLE MOUNTER.PERFORMANCE IMPROVEMENT COORDINATOR Work Phone: [facility] 10-14-2023 13:24-0400 Heart rate 68 /min Key Portillo BAFFLE MOUNTER.PERFORMANCE IMPROVEMENT COORDINATOR Work Phone: [facility] 10-14-2023 13:24-0400 Respiratory rate 16 /min Key Portillo BAFFLE MOUNTER.PERFORMANCE IMPROVEMENT COORDINATOR Work Phone: [facility] 10-14-2023 13:24-0400 Systolic blood pressure 142 mm[Hg] Key Portillo BAFFLE MOUNTER.PERFORMANCE IMPROVEMENT COORDINATOR Work Phone: [facility] 04-05-2023 11:22-0500 Body temperature 97.2 [degF] Michael Puga DO Work Phone: [facility] 04-05-2023 11:22-0500 Body weight 101.61 kg Michael Puga DO Work Phone: [facility] 04-05-2023 11:22-0500 Diastolic blood pressure 80 mm[Hg] Michael Puga DO Work Phone: [facility] 04-05-2023 11:22-0500 Heart rate 64 /min Michael Puga DO Work Phone: [facility] 04-05-2023 11:22-0500 Respiratory rate 16 /min Michael Puga DO Work Phone: [facility] 04-05-2023 11:22-0500 Systolic blood pressure 120 mm[Hg] Michael Puga DO Work Phone: [facility] 12-28-2022 14:00-0400 Body height 162.9 cm Pulm Wstr Work Phone: [facility] 12-28-2022 14:00-0400 Body weight 102.06 kg Pulm Wstr Work Phone: [facility] 12-28-2022 14:00-0400 Heart rate 66 /min Pulm Wstr Work Phone: [facility] 12-28-2022 14:00-0400 Respiratory rate 14 /min Pulm Wstr Work Phone: [facility] 12-28-2022 14:00-0400 SaO2% (BldA) [Mass fraction] 96 % Pulm Wstr Work Phone: [facility] 12-22-2022 15:24-0400 Body height 165.1 cm Michael Puga DO Work Phone: [facility] 12-22-2022 15:24-0400 Body weight 103.87 kg Michael Puga DO Work Phone: [facility] 12-22-2022 15:24-0400 Diastolic blood pressure 62 mm[Hg] Michael Puga DO Work Phone: [facility] 12-22-2022 15:24-0400 Heart rate 63 /min Michael Puga DO Work Phone: [facility] 12-22-2022 15:24-0400 Respiratory rate 18 /min Michael Puga DO Work Phone: [facility] 12-22-2022 15:24-0400 SaO2% (BldA) [Mass fraction] 96 % Michael Puga DO Work Phone: [facility] 12-22-2022 15:24-0400 Systolic blood pressure 130 mm[Hg] Michael Puga DO Work Phone: [facility] 06-22-2022 11:42-0500 Body temperature 98.2 [degF] Michael Puga DO Work Phone: [facility] 06-22-2022 11:42-0500 Body weight 102.51 kg Michael Puga DO Work Phone: [facility] 06-22-2022 11:42-0500 Diastolic blood pressure 68 mm[Hg] Michael Puga DO Work Phone: [facility] 06-22-2022 11:42-0500 Heart rate 64 /min Michael Puga DO Work Phone: [facility] 06-22-2022 11:42-0500 Respiratory rate 16 /min Michael Puga DO Work Phone: [facility] 06-22-2022 11:42-0500 Systolic blood pressure 128 mm[Hg] Michael Puga DO Work Phone: [facility] 06-04-2022 15:28-0500 Diastolic blood pressure 80 mm[Hg] Key Portillo BAFFLE MOUNTER.PERFORMANCE IMPROVEMENT COORDINATOR Work Phone: [facility] 06-04-2022 15:28-0500 Systolic blood pressure 164 mm[Hg] Key Portillo BAFFLE MOUNTER.PERFORMANCE IMPROVEMENT COORDINATOR Work Phone: [facility] 06-04-2022 14:34-0500 Body weight 106.69 kg Key Portillo BAFFLE MOUNTER.PERFORMANCE IMPROVEMENT COORDINATOR Work Phone: [facility] 06-04-2022 14:34-0500 Heart rate 63 /min Key Portillo BAFFLE MOUNTER.PERFORMANCE IMPROVEMENT COORDINATOR Work Phone: [facility] 06-04-2022 14:34-0500 Respiratory rate 16 /min Key Portillo BAFFLE MOUNTER.PERFORMANCE IMPROVEMENT COORDINATOR Work Phone: [facility] 06-04-2022 14:34-0500 SaO2% (BldA) [Mass fraction] 93 % Key Portillo BAFFLE MOUNTER.PERFORMANCE IMPROVEMENT COORDINATOR Work Phone: [facility] 04-21-2022 12:31-0500 Body temperature 96.8 [degF] Michael Puga DO Work Phone: [facility] 04-21-2022 12:31-0500 Body weight 105.23 kg Michael Puga DO Work Phone: [facility] 04-21-2022 12:31-0500 Diastolic blood pressure 74 mm[Hg] Michael Puga DO Work Phone: [facility] 04-21-2022 12:31-0500 Heart rate 60 /min Michael Puga DO Work Phone: [facility] 04-21-2022 12:31-0500 Respiratory rate 20 /min Michael Puga DO Work Phone: [facility] 04-21-2022 12:31-0500 Systolic blood pressure 124 mm[Hg] Michael Puga DO Work Phone: [facility] 02-16-2022 11:44-0400 Body temperature 97 [degF] Michael Puga DO Work Phone: [facility] 02-16-2022 11:44-0400 Body weight 105.69 kg Michael Puga DO Work Phone: [facility] 02-16-2022 11:44-0400 Diastolic blood pressure 70 mm[Hg] Michael Puga DO Work Phone: [facility] 02-16-2022 11:44-0400 Heart rate 68 /min Michael Puga DO Work Phone: [facility] 02-16-2022 11:44-0400 Respiratory rate 16 /min Michael Puga DO Work Phone: [facility] 02-16-2022 11:44-0400 Systolic blood pressure 146 mm[Hg] Michael Puga DO Work Phone: [facility] 01-16-2022 09:59-0400 Body temperature 97.59 [degF] Raymundo De León MD Work Phone: [facility] 01-16-2022 09:59-0400 Body weight 105.05 kg Raymundo De León MD Work Phone: [facility] 01-16-2022 09:59-0400 Heart rate 80 /min Raymundo De León MD Work Phone: [facility] 01-16-2022 09:59-0400 SaO2% (BldA) [Mass fraction] 96 % Raymundo De León MD Work Phone: [facility] 01-08-2022 14:45-0400 Diastolic blood pressure 72 mm[Hg] Raymundo De León MD Work Phone: [facility] 01-08-2022 14:45-0400 Heart rate 60 /min Raymundo De León MD Work Phone: [facility] 01-08-2022 14:45-0400 Respiratory rate 16 /min Raymundo De León MD Work Phone: [facility] 01-08-2022 14:45-0400 SaO2% (BldA) [Mass fraction] 92 % Raymundo De León MD Work Phone: [facility] 01-08-2022 14:45-0400 Systolic blood pressure 163 mm[Hg] Raymundo De León MD Work Phone: [facility] 01-08-2022 13:15-0400 Body temperature 97.81 [degF] Raymundo De León MD Work Phone: [facility] 12-18-2021 15:07-0400 Body height 165.1 cm Raymundo De León MD Work Phone: [facility] 12-18-2021 15:07-0400 Body temperature 98.71 [degF] Raymundo De León MD Work Phone: [facility] 12-18-2021 15:07-0400 Body weight 102.51 kg Raymundo De León MD Work Phone: [facility] 12-18-2021 15:07-0400 Diastolic blood pressure 70 mm[Hg] Raymundo De León MD Work Phone: [facility] 12-18-2021 15:07-0400 Heart rate 78 /min Raymundo De León MD Work Phone: [facility] 12-18-2021 15:07-0400 SaO2% (BldA) [Mass fraction] 98 % Raymundo De León MD Work Phone: [facility] 12-18-2021 15:07-0400 Systolic blood pressure 138 mm[Hg] Raymundo De León MD Work Phone: [facility] 10-20-2021 15:25-0400 Body temperature 98.91 [degF] Nunu Gonzalez PA-C Work Phone: [facility] 10-20-2021 15:25-0400 Body weight 101.33 kg Nunu Bogner PA-C Work Phone: [facility] 10-20-2021 15:25-0400 Diastolic blood pressure 80 mm[Hg] Nunu Bogner PA-C Work Phone: [facility] 10-20-2021 15:25-0400 Heart rate 61 /min Nunu Bogner PA-C Work Phone: [facility] 10-20-2021 15:25-0400 Respiratory rate 20 /min Nunu Bogner PA-C Work Phone: [facility] 10-20-2021 15:25-0400 SaO2% (BldA) [Mass fraction] 95 % Nunu Bogner PA-C Work Phone: [facility] 10-20-2021 15:25-0400 Systolic blood pressure 134 mm[Hg] Nunu Bogner PA-C Work Phone: [facility] 06-09-2021 09:35-0500 Body height 165.[address] Michael Puga Work Phone: [facility] Work Phone: 06-09-2021 09:35-0500 Body weight 100.[address] Michael Puga Work Phone: [facility] Work Phone: 06-06-2021 08:07-0500 Body mass index (BMI) [Ratio] 36.9 kg/m2 Dr. Michael Puga Work Phone: [facility] Work Phone: 06-02-2021 11:58-0500 Body mass index (BMI) [Ratio] 36.9 kg/m2 Dr. Michael Puga Work Phone: [facility] Work Phone: 06-02-2021 11:58-0500 Body weight 100.[address] Michael Puga Work Phone: [facility] Work Phone: 06-02-2021 11:58-0500 Diastolic blood pressure 79 mm[Hg] Dr. Michael Puga Work Phone: [facility] Work Phone: 06-02-2021 11:58-0500 Heart rate 70 /min Dr. Michael Puga Work Phone: [facility] Work Phone: 06-02-2021 11:58-0500 Respiratory rate 18 /min Dr. Michael Puga Work Phone: [facility] Work Phone: 06-02-2021 11:58-0500 SaO2% (BldA) [Mass fraction] 94 % Dr. Michael Puga Work Phone: [facility] Work Phone: 06-02-2021 11:58-0500 Systolic blood pressure 174 mm[Hg] Dr. Michael Puga Work Phone: [facility] Work Phone: 12-21-2020 19:10-0400 Diastolic blood pressure 94 mm[Hg] Michael Ghotraon Other Phone: [facility] 12-21-2020 19:10-0400 Heart rate 88 /min Michael Levyrison Other Phone: [facility] 12-21-2020 19:10-0400 Respiratory rate 18 /min Michael Levyrison Other Phone: [facility] 12-21-2020 19:10-0400 SaO2% (BldA) [Mass fraction] 95 % Michael Puga Other Phone: [facility] 12-21-2020 19:10-0400 Systolic blood pressure 144 mm[Hg] Michael Puga Other Phone: [facility] 12-21-2020 17:03-0400 Body height 165.1 cm Michael Levyrison Other Phone: [facility] 12-21-2020 17:03-0400 Body temperature 99.86 [degF] Michael Puga Other Phone: [facility] 12-21-2020 17:03-0400 Body weight 98 kg Michael Puga Other Phone: [facility] 10-22-2016 12:59-0400 BMI (Body Mass Index) [...] 13:20-0500 BMI (Body Mass Index) 39.14 kg/m2 [facility] Work Phone: 04-15-2016 13:20-0500 BP Diastolic 62 mm[Hg] Delisa Juárez RN [facility] Work Phone: 04-15-2016 13:20-0500 BP Systolic 130 mm[Hg] Delisa Juárez RN [facility] Work Phone: 04-15-2016 13:20-0500 BSA (Body Surface Area) 2.12 m2 Delisa Juárez RN [facility] Work Phone: 04-15-2016 13:20-0500 Pulse (Heart Rate) 60 /min Delisa Juárez RN [facility] Work Phone: 04-15-2016 13:20-0500 Respiratory Rate 20 /min Delisa Marquita RN [facility] Work Phone: 04-15-2016 13:20-0500 Weight 106.69 kg Delisamarii Juárez RN [facility] Work Phone: 05-28-2015 13:30-0500 BP Diastolic 82 mm[Hg] Delisa Marquita RN [facility] Work Phone: 05-28-2015 13:30-0500 BP Systolic 177 mm[Hg] Delisa Marquita RN [facility] Work Phone: 11-22-2014 13:42-0400 Heart rate 60 /min Delisa Marquita RN [facility] Work Phone: 05-05-2011 16:04-0500 Heart rate 420 ms Delisamarii Juárez RN [facility] Work Phone: 04-07-2011 13:46-0500 Height 165.1 cm Delisa Marquita RN [facility] Work Phone: Encounters Encounter Date Encounter Type Care Provider Facility Start: 12-04-2024 ambulatory Anabel ALVA Facility:[facility] Start: 12-02-2024 Non-patient / Non-visit Dr. Waleska oscar MD -[facility] Work Phone: Start: 12-01-2024 Non-patient / Non-visit Dr. Waleska oscar MD -[facility] Work Phone: Start: 11-30-2024 Non-patient / Non-visit Dr. Alyson Vicente MD -[facility] Work Phone: Start: 11-30-2024 ambulatory Gallo Hickey Facility:[facility] Start: 11-30-2024 Non-patient / Non-visit Dr. Beltran SZYMANSKI -[facility] Start: 11-29-2024 ambulatory Jonny Vicente Fac ility:[facility] Start: 11-29-2024 End: 12-03-2024 Evaluation and management of inpatient Dr. Tacho Davis DO -Progressive Care Unit Work Phone: Start: 11-29-2024 End: 12-03-[address] Michael Puga DO Work Phone: -[facility] Start: 11-27-2024 End: 11-27-2024 Refill Michael Puga DO Work Phone: [facility] Comment on above: Refill Request Start: 11-11-2024 End: 11-13-2024 Refill Key Portillo BAFFLE MOUNTER.PERFORMANCE IMPROVEMENT COORDINATOR Work Phone: [facility] Comment on above: Refill Request Start: 11-10-2024 End: 11-13-2024 Telephone encounter Michael Puga DO Work Phone: [facility] Comment on above: Patient Update Start: 11-02-2024 End: 11-02-2024 Patient encounter procedure Anabel ALVA -[facility] Work Phone: Start: 11-02-2024 End: 11-02-[address] Michael Puga DO Work Phone: -[facility] Start: 11-01-2024 End: 11-01-2024 Telephone encounter Key Portillo BAFFLE MOUNTER.PERFORMANCE IMPROVEMENT COORDINATOR Work Phone: [facility] Start: 10-31-2024 End: 10-31-[address] Michael Puga DO Work Phone: -Radiology [facility] Start: 10-31-2024 End: 10-31-2024 Patient encounter procedure Anabel ALVA -Radiology [facility] Work Phone: Start: 10-31-2024 End: 10-31-2024 ambulatory Anabel ALVA Facility:[facility] Start: 10-27-2024 End: 10-27-2024 ambulatory Sarah Merchant PT Work Phone: [facility] Comment on above: Abnormality of gait (Primary Dx); Weakness; Difficulty walking; Imbalance Start: 10-27-2024 End: 10-27-[address] Michael Puga DO Work Phone: -[facility] Start: 10-27-2024 End: 10-27-[address] [facility] Work Phone: Start: 10-25-2024 End: 10-26-2024 Telephone encounter Michael Puga DO Work Phone: [facility] Comment on above: Medication Question Start: 10-23-2024 End: 10-23-[address] Michael Puga DO Work Phone: -[facility] Start: 10-23-2024 End: 10-23-[address] [facility]o [facility] Work Phone: Start: 10-16-2024 End: 10-16-[address] Michael Puga DO Work Phone: -[facility] Start: 10-16-2024 End: 10-16-[address] [facility] Work Phone: Start: 10-09-2024 End: 10-09-2024 ambulatory Joy Sun [facility] Comment on above: Abnormality of gait (Primary Dx); Weakness; Difficulty walking; Imbalance Start: 10-02-2024 End: 10-02-2024 ambulatory Pj Bledsoe PT Work Phone: [facility] Comment on above: Abnormality of gait (Primary Dx); Weakness; Difficulty walking; Imbalance Start: 09-28-2024 End: 09-28-2024 Telephone encounter Key Portillo APRN.PERFORMANCE IMPROVEMENT COORDINATOR Work Phone: [facility] Comment on above: report tremor is wor se Start: 09-28-2024 End: 09-28-2024 ambulatory Sarah Antamanda PT Work Phone: [facility] Comment on above: Weakness (Primary [...] Michael Puga DO Work Phone: [facility] Comment on above: Patient Question Start: 08-30-2024 End: 08-30-2024 Patient encounter procedure Michael Puga DO Work Phone: [facility] Comment on above: Hypoglycemia (Primar y Dx); Restless leg; Dysthymia; Congestive heart failure, unspecified HF chronicity, unspecified heart failure type (HCC); Obstructive lung disease (HCC); Arthritis, multiple joint involvement; Gait abnormality; Chronic respiratory failure with hypoxia (HCC) Start: 08-30-2024 End: 08-30-2024 ambulatory MICHAEL PUGA Facility:[facility] Start: 08-17-2024 End: 08-17-2024 Office outpatient visit 25 minutes Asia Rosales APRN.PERFORMANCE IMPROVEMENT COORDINATOR Work Phone: [facility] Comment on above: Anxiety (Primary Dx) ; Dysthymia; Congestive heart failure, unspecified HF chronicity, unspecified heart failure type (HCC); Function kidney decreased; Obstructive lung disease (HCC); Pulmonary hypertension (HCC) Start: 08-17-2024 End: 08-17-2024 ambulatory ASIA ROSALES Facility:[facility] Start: 08-16-2024 End: 08-18-2024 Telephone encounter Michael Puga DO Work Phone: [facility] Comment on above: Patient Update Start: 07-28-2024 End: 07-28-2024 ambulatory Gallo Hickey Facility:[facility] Start: 07-28-2024 End: 07-28-[address] Gallo Hickey MD -[facility] Work Phone: Start: 07-07-2024 End: 07-07-2024 Patient encounter procedure Anabel ALVA -Laboratory, [place] Work Phone: Start: 07-07-2024 End: 07-07-2024 ambulatory Michael Puga DO Work Phone: [facility] Comment on above: Medication Question Start: 07-07-2024 End: 07-07-2024 ambulatory Anabel ALVA Facility:[facility] Start: 07-03-2024 Non-patient / Non-visit Dr. Virgil ordaz MD -[facility] Start: 07-03-2024 End: 07-03-[address] Michael Puga DO Work Phone: [facility] Work Phone: Start: 07-03-2024 End: 07-03-2024 Patient encounter procedure Anabel ALVA -Cardiovascular Services Work Phone: Start: 07-03-2024 End: 07-03-2024 ambulatory Anabel ALVA Facility:[facility] Start: 06-26-2024 End: 07-14-2024 Telephone encounter Michael Puga DO Work Phone: [facility] Comment on above: Patient Update Start: 06-22-2024 End: 06-22-2024 Patient encounter procedure Anabel ALVA -Pulmonary Services/Neurology Work Phone: Start: 06-22-2024 ambulatory Anabel ALVA [facility] Start: 06-21-2024 End: 06-21-2024 Patient encounter procedure Michael Puga DO Work Phone: [facility] Comment on above: Obstructive lung dis ease (HCC) (Primary Dx); Thyroid disease; Pulmonary hypertension (HCC); WELCH (dyspnea on exertion); Function kidney decreased; Situational mixed anxiety and depressive disorder; Arthritis, multiple joint involvement Start: 06-21-2024 End: 06-22-2024 ambulatory MICHAEL PUGA Facility:[facility] Start: 06-16-[address] Faby Puga DO -[facility] Work Phone: Start: 06-16-[address] [facility] Facility:[facility] Start: 06-06-2024 End: 06-06-2024 Telephone encounter Michael Puga DO Work Phone: [facility] Comment on above: Results, Lab Start: 06-03-2024 ambulatory Michael Puga Facilit y:[facility] Start: 06-02-2024 End: 06-02-2024 ambulatory Michael Puga Facility:[facility] Start: 06-02-2024 End: 06-02-[address] Michael Puga DO -Home Health Lab Start: 06-01-2024 End: 06-01-2024 ambulatory Gallodeangelo Hickey Facility:[facility] Start: 06-01-2024 End: 06-01-[address] Gallo Hickey MD -[facility] Work Phone: Start: 05-30-2024 End: 05-31-2024 Telephone encounter Michael Puga DO Work Phone: [facility] Comment on above: Results Start: 05-25-2024 End: 05-25-2024 Telephone encounter Michael Puga DO Work Phone: [facility] Comment on above: Patient Update; Medi cation Question Start: 05-25-2024 End: 05-25-[address] Michael Puga DO -Laboratory, Specimen Work Phone: Start: 05-25-2024 End: 05-25-2024 ambulatory Michael Puga Facility:[facility] Start: 05-22-2024 ambulatory Key Leos cility:[facility] Start: 05-19-2024 End: 05-19-2024 Telephone encounter Michael Puga DO Work Phone: [facility] Comment on above: Results Start: 05-16-2024 End: 05-18-2024 Telephone encounter Michael Puga DO Work Phone: [facility] Comment on above: Medication Update; O rders Start: 05-12-2024 End: 05-12-2024 Telephone encounter Keyjayy Portillo BAFFLE MOUNTER.PERFORMANCE IMPROVEMENT COORDINATOR Work Phone: [facility] Comment on above: Patient Question Results Start: 05-11-2024 End: 05-11-2024 Patient encounter procedure Key Lety Portillo BAFFLE MOUNTER.PERFORMANCE IMPROVEMENT COORDINATOR Work Phone: [facility] Comment on above: Hospital discharge f ollow-up (Primary Dx); Congestive heart failure, unspecified HF chronicity, unspecified heart failure type (HCC); Thyroid disease; Restless leg Start: 05-11-2024 End: 05-11-2024 ambulatory KEY PORTILLO Facility:[facility] Start: 05-08-2024 End: 05-08-2024 Telephone encounter Michael Puga DO Work Phone: [facility] Comment on above: Patient Update Start: 05-05-2024 End: 05-05-2024 Telephone encounter Michael Puga DO Work Phone: [facility] Comment on above: Home Health Point of Care Results Start: 05-04-2024 End: 05-05-2024 Patient Outreach Michael Puga DO Work Phone: [facility] Comment on above: Transition Of Jail Health Plan of Care Refill Request Start: 05-02-2024 Non-patient / Non-visit Dr. Alyson Vicente MD -[facility] Work Phone: Start: 05-01-2024 End: 05-01-2024 Telephone encounter Michael Puga DO Work Phone: [facility] Comment on above: verbal orders Start: 05-01-2024 Non-patient / Non-visit Dr. Alyson Martinez Inpatient Physicians Work Phone: Start: 04-30-2024 End: 04-30-2024 ambulatory Gallo Hickey Facility:[facility] Start: 04-30-2024 End: 04-30-2024 Non-patient / Non-visit Dr. Gallo Hickey MD -[facility] Work Phone: Start: 04-30-2024 ambulatory Susan Duran [facility] Start: 04-30-2024 End: 05-02-2024 Evaluation and management of inpatient Dr. Jonny Vicente MD -Intensive Care Unit Work Phone: Start: 2024 End: 2024 ambulatory Gallo Hickey Facility:[facility] Start: 2024 End: [address] Gallo Hickey MD -[facility] Work Phone: Start: 04-24-2024 End: 04-24-2024 Telephone encounter Michael Puga DO Work Phone: [facility] Comment on above: Leg Pain Start: 04-20-2024 End: 04-20-2024 ambulatory Sarah Merchant PT Work Phone: [facility] Comment on above: Difficulty walking ( Primary Dx); Weakness; Imbalance Start: 04-18-2024 End: 04-18-2024 ambulatory Sarah Merchant PT Work Phone: [facility] Comment on above: Difficulty walking ( Primary Dx); Imbalance; Weakness Start: 04-10-2024 End: 04-10-2024 ambulatory SHARON JARRETT Facility:[facility] Start: 04-10-2024 End: 04-10-2024 Patient encounter procedure Sharon Jarrett BAFFLE MOUNTER.PERFORMANCE IMPROVEMENT COORDINATOR Work Phone: General Surgery Comment on above: Other gastritis with out bleeding (Primary Dx) Start: 03-31-2024 ambulatory SHARON JOHN Facilit :[facility] Start: 03-31-2024 End: 03-31-2024 Subsequent hospital visit by physician Raymundo De León MD Work Phone: [facility] Endoscopy Comment on above: Epigastric abdominal pain [R10.13] Start: 03-27-2024 End: 03-27-2024 PAT [facility] Work Phone: Pre Anesthesia Comment on above: Pre-operative examin ation (Primary Dx); JOSE on CPAP; Obstructive lung disease (HCC); Primary hypertension; Hyperlipidemia, unspecified hyperlipidemia type; Cardiac resynchronization therapy pacemaker (SURGICAL SERVICES COORDINATOR-P) in place; Paroxysmal atrial fibrillation (HCC); [...] Start: 03-27-2024 End: 03-27-2024 Preprocedural examination done [facility] 1 Work Phone: [facility] Start: 03-23-2024 End: 03-23-2024 ambulatory Sarah Merchant PT Work Phone: [facility] Comment on above: Difficulty walking ( Primary Dx); Imbalance; Weakness Start: 03-20-2024 End: 03-20-2024 ambulatory Sarah Merchant PT Work Phone: [facility] Comment on above: Difficulty walking ( Primary Dx); Imbalance; Weakness Start: 03-16-2024 End: 03-16-2024 ambulatory Sarah Merchant PT Work Phone: [facility] Comment on above: Difficulty walking ( Primary Dx); Imbalance; Weakness Start: 03-14-2024 End: 03-14-2024 ambulatory Joy Sun PTA [facility] Comment on above: Difficulty walking ( Primary Dx); Imbalance; Weakness Start: 03-13-2024 End: 03-13-2024 ambulatory SHARON JARRETT Facility:[facility] Start: 03-13-2024 End: 03-13-2024 Patient encounter procedure Sharon Jarrett PERFORMANCE IMPROVEMENT COORDINATOR Work Phone: General Surgery Comment on above: Epigastric abdominal pain (Primary Dx); Pulmonary hypertension (HCC) Start: 03-13-2024 End: 04-03-2024 Telephone encounter Raymundo De León MD Work Phone: General Surgery Comment on above: 03-31-2024 EGD medin a Start: 03-08-2024 End: 03-09-2024 Telephone encounter Michael Puga DO Work Phone: [facility] [place] Comment on above: Wheelchair order Start: 03-02-2024 End: 03-02-2024 ambulatory Sarah Merchant PT Work Phone: [facility] Comment on above: Difficulty walking ( Primary Dx); Imbalance; Weakness Start: 03-01-2024 End: 03-01-2024 Patient encounter procedure Michael Puga DO Work Phone: [facility] Comment on above: Arthritis, multiple joint involvement (Primary Dx); Anxiety; Need for influenza vaccination; Epigastric abdominal pain; Obstructive lung disease (HCC); Gait abnormality; Imbalance Start: 03-01-2024 End: 03-01-2024 ambulatory MICHAEL PUGA Facility:[facility] Start: 03-01-2024 End: 03-02-2024 Telephone encounter Michael Puga DO Work Phone: [facility] Comment on above: Orders Start: 02-17-2024 End: 02-18-2024 ambulatory Sarah Merchant PT Work Phone: [facility] Comment on above: Difficulty walking ( Primary Dx); Imbalance; Weakness Start: 02-14-2024 End: 02-14-2024 ambulatory Wilfred Mcclellan SHUTDOWN COORDINATOR Work Phone: [facility] Comment on above: Weakness (Primary Dx ); Imbalance Start: 02-10-2024 End: 02-10-2024 ambulatory Sarah Merchant PT Work Phone: [facility] Comment on above: Weakness (Primary Dx ); Imbalance; Difficulty walking Start: 02-07-2024 ambulatory Michael Puga Facilit y:[facility] Start: 02-07-2024 End: 02-07-2024 ambulatory Sarah Merchnat PT Work Phone: [facility] Comment on above: Weakness (Primary Dx ); Imbalance; Difficulty walking Start: 02-02-[address] [facility] Facility:[facility] Start: 02-02-2024 End: 02-02-2024 ambulatory Anabel Horne PA Facility:[facility] Start: 01-31-2024 End: 01-31-2024 ambulatory Sarah Merchant PT Work Phone: [facility] Comment on above: Weakness (Primary Dx ); Imbalance; Difficulty walking Start: 01-28-2024 End: 01-28-2024 [facility] Start: 01-26-2024 End: 01-26-2024 ambulatory Wilfred Mcclellan SHUTDOWN COORDINATOR Work Phone: [facility] Comment on above: Weakness (Primary Dx ); Imbalance Start: 01-25-2024 End: 01-25-2024 ambulatory Anabel Horne PA Facility[facility] Start: 01-25-2024 End: 01-25-2024 ambulatory Anabel Horne PA Facility:[facility] Start: 01-18-2024 End: 01-18-2024 ambulatory Sarah Merchant PT Work Phone: [facility] Comment on above: Weakness (Primary Dx ); Imbalance; Difficulty walking Start: 01-10-2024 End: 01-11-2024 Telephone encounter Michael Puga DO Work Phone: [facility] Comment on above: Wheelchair order Start: 12-13-2023 End: 12-14-2023 ambulatory Sarah Merchant PT Work Phone: [facility] Comment on above: Weakness (Primary Dx ); Difficulty walking; Imbalance Start: 12-08-2023 End: 12-08-2023 ambulatory MICHAEL PUGA Facility:[facility] Start: 12-07-2023 End: 12-07-2023 ambulatory Wilfred Mcclellan SHUTDOWN COORDINATOR Work Phone: [facility] Comment on above: Weakness (Primary Dx ) Start: 12-01-2023 End: 12-01-2023 ambulatory MICHAEL PUGA Facility:[facility] Start: 12-01-2023 End: 12-01-2023 Patient encounter procedure Michael Puga DO Work Phone: [facility] Comment on above: Acute bronchitis, un specified organism (Primary Dx); Thyroid disease; Rhonchi; Obstructive lung disease (HCC); Paroxysmal atrial fibrillation (HCC); Disorder of carotid artery (HCC); Malignant melanoma of skin of trunk, except scrotum (HCC) Start: 11-26-2023 Telephone encounter Asia Persaud APRN.PERFORMANCE IMPROVEMENT COORDINATOR Work Phone: [facility] [place] Comment on above: Results Start: 11-25-2023 End: 11-25-2023 ambulatory Sarah Merchant PT Work Phone: [facility] Comment on above: Weakness (Primary Dx ); Difficulty walking; Imbalance Start: 11-23-2023 End: 11-23-2023 ambulatory Sarah Merchant PT Work Phone: [facility] Comment on above: Weakness (Primary Dx ); Difficulty walking; Imbalance Start: 11-15-2023 End: 11-16-2023 ambulatory Sarah Merchant PT Work Phone: [facility] Comment on above: Weakness (Primary Dx ); Difficulty walking; Imbalance Start: 10-18-2023 Refill [facility]choa DO [facility] Comment on above: Refill Request Orders; Medication Q uestion Start: 10-14-2023 End: 10-14-2023 Patient encounter procedure Key Portillo APRN.PERFORMANCE IMPROVEMENT COORDINATOR Work Phone: [facility] Comment on above: Hospital discharge f ollow-up (Primary Dx); Anxiety; TIA (transient ischemic attack); Hyperlipidemia, unspecified hyperlipidemia type; Sleep disturbances; Community acquired pneumonia, unspecified laterality; On supplemental oxygen therapy; Subclinical hypothyroidism; IFG (impaired fasting glucose); Primary hypertension Start: 10-11-2023 ambulatory Isabella burris RN Work Phone: [employer] Start: 10-11-2023 Telephone follow-up Isabella Michel RN Work Phone: [employer] Comment on above: Transition Of Care ( TCM OON follow up ) Weekly phone contact (Recurring) for Transitional Care Management Start: 10-06-2023 Telephone encounter Michael car DO Work Phone: [facility] Start: 10-04-2023 Patient Outreach Isabella Michel RN Work Phone: [employer] [facility] Comment on above: Transition Of Care ( TCM / [place] 10/01/OON ) Initial phone contact for Transitional Care Management HH: orders, update, medications Start: 10-01-2023 Telephone encounter Michael car DO Work Phone: [facility] Start: 04-05-2023 End: 04-05-2023 Patient encounter procedure Michael Puga DO Work Phone: [facility] Comment on above: Subclinical hypothyr [...] Telephone encounter Michael car DO Work Phone: [facility] Comment on above: Patient Question Start: 01-11-2023 Telephone encounter Michael car DO Work Phone: [facility] Comment on above: Orders Start: 12-30-2022 Telephone encounter Michael car DO Work Phone: [facility] Comment on above: Results Start: 12-28-2022 End: 12-28-2022 Subsequent hospital visit by physician [facility] [place] Work Phone: Radiology Comment on above: WELCH (dyspnea on exer tion) [R06.09] Start: 12-28-2022 End: 12-28-2022 ambulatory [facility] Work Phone: [facility] Comment on above: Spirometry Start: 12-28-2022 End: 12-28-2022 Patient encounter procedure [facility] Work Phone: [facility] Start: 12-22-2022 End: 12-22-2022 Patient encounter procedure Michael Puga DO Work Phone: Family Medicine [place] Comment on above: WELCH (dyspnea on exer tion) (Primary Dx); Fatigue, unspecified type; Obesity, Class II, BMI 35-39.9; IFG (impaired fasting glucose); Vitamin B12 deficiency; Primary hypertension; Disorder of carotid artery (HCC) Start: 09-29-2022 Refill Michael ochoa DO Work Phone: [facility] [place] Comment on above: Refill Request Start: 06-29-2022 Refill Michael ochoa DO Work Phone: [facility] [place] Comment on above: Refill Request Start: 06-22-2022 End: 06-22-2022 Patient encounter procedure Michael Puga DO Work Phone: [facility] [place] Comment on above: Iron deficiency (Lisa radha Dx); Fatigue, unspecified type; SOB (shortness of breath) on exertion; IFG (impaired fasting glucose); Vitamin D deficiency; Vitamin B12 deficiency; Hyperlipidemia, unspecified hyperlipidemia type; Primary hypertension; Obesity, Class II, BMI 35-39.9; Arthritis, multiple joint involvement Start: 06-10-2022 Telephone encounter Key Palmer son BAFFLE MOUNTER.PERFORMANCE IMPROVEMENT COORDINATOR Work Phone: [facility] Comment on above: Results Start: 06-08-2022 Telephone encounter Key ochoa BAFFLE MOUNTER.PERFORMANCE IMPROVEMENT COORDINATOR Work Phone: [facility] Comment on above: Results Start: 06-05-2022 Telephone encounter Michael car DO Work Phone: [facility] [place] Comment on above: Medication Problem Start: 06-04-2022 End: 06-04-2022 Patient encounter procedure Key Portillo RONNIE Work Phone: [facility] Comment on above: Fatigue, unspecified type (Primary Dx); SOB (shortness of breath) on exertion; Hyperlipidemia, unspecified hyperlipidemia type; Obesity, Class II, BMI 35-39.9; IFG (impaired fasting glucose); Iron deficiency anemia, unspecified iron deficiency anemia type; Vitamin D deficiency; Bilateral leg edema; Primary hypertension Start: 06-02-2022 ambulatory [facility] Phyllis Box MA [facility] [employer] Comment on above: Population Health Na vigation Outreach (Healthy at Home - [facility] ) Extreme fatigue Start: 04-27-2022 Telephone encounter Michael car DO Work Phone: [facility] Comment on above: Patient Question Start: 04-21-2022 End: 04-21-2022 Patient encounter procedure Michael Puga DO [facility] Comment on above: Dysthymia (Primary D x); Situational insomnia; Arthritis, multiple joint involvement; IFG (impaired fasting glucose); Obesity, Class II, BMI 35-39.9; Fatigue, unspecified type; Iron deficiency Start: 02-16-2022 End: 02-16-2022 Patient encounter procedure Michael Puga DO Work Phone: [facility] Comment on above: Dysthymia (Primary [...] 25 minutes Nunu Gonzalez PA-C Work Phone: [facility] Comment on above: Urinary frequency (P rimary Dx); Glucosuria Start: 09-10-2021 End: 09-10-[address] Michael Puga Work Phone: [facility]-Laboratory Start: 08-06-2021 Refill July Dias Work Phone: General Surgery Comment on above: Refill Request Start: 06-19-2021 Telephone encounter Asia Persaud APRN.CNP Work Phone: [facility] Comment on above: Results Start: 06-16-2021 End: 06-16-[address] Michael Puga Work Phone: [facility] Start: 06-09-2021 End: 06-09-2021 Admission to same day surgery center Dr. Michael Puga Work Phone: [facility]-Laundry Room Attendant/Special Procedures Start: 06-02-2021 End: 06-02-[address] Michael Puga Work Phone: [facility]-Radiology, [facility] Start: 06-02-2021 End: 06-02-[address] Michael Puga Work Phone: [facility] Start: 12-21-2020 End: 12-21-2020 Emergency department patient visit Kat Gleason [facility] Procedures Date Procedure Procedure Detail [...] Start: 03-31-2024 Esophagogastroduodenoscopy transoral diagnostic Sharon Jarrett APRN.PERFORMANCE IMPROVEMENT COORDINATOR Work Phone: Start: 04-05-2023 [facility] COVID-19 VACCINE (2022- SEASON) AGE 12+ YR [...] stick/tablet rgnt auto w/o microscopy Holly Clay BAFFLE MOUNTER.PERFORMANCE IMPROVEMENT COORDINATOR Work Phone: Start: 06-02-2021 Plain chest X-ray [...] Delisa Juárez RN Start: 04-15-2016 End: 04-15-2016 FLANGE MACHINE OPERATOR Anabel Horne PA-C Work Phone: [...] Gallo Hickey MD Start: 11-22-2014 End: 11-22-2014 FLANGE MACHINE OPERATOR Anabel Horne PA-C Work Phone: [...] Gallo Hickey MD Start: 11-22-2013 End: 11-22-2013 FLANGE MACHINE OPERATOR Anabel Horne PA-C Work Phone: [...] PA-C Work Phone: Start: 05-24-2013 End: 05-24-2013 FLANGE MACHINE OPERATOR Anabel Horne PA-C Work Phone: [...] 05-18-2012 End: 05-16-2013 Thyroid stimulating hormone (TSH) [place] S Edelmira, MD Start: 05-18-2012 End: 05-16-2013 [...] DTaP,Tdap,Td Vaccine (3 - Td or Tdap) [facility] Start: 08-31-2027 Diabetes Screening Diabetes Screening [facility] Start: 05-11-2027 Diabetes Screening Diabetes Screening [facility] Start: 11-24-2026 Diabetes Screening Diabetes Screening [facility] Start: 03-31-2026 Diabetes Screening Diabetes Screening [facility] Start: 12-15-2025 DIABETES SCREEN DIABETES SCREEN [facility] Start: 12-15-2025 Diabetes Screening Diabetes Screening [facility] Start: 09-17-2025 DIABETES SCREEN DIABETES SCREEN [facility] Start: 06-04-2025 DIABETES SCREEN DIABETES SCREEN [facility] Start: 02-13-2025 DIABETES SCREEN DIABETES SCREEN [facility] Start: 01-01-2025 Influenza vaccination Influ[facility] Start: 12-08-2024 End: 12-08-2024 Patient encounter procedure 12/08/2024 2:40 PM EDT Office Visit Family Medicine [facility] [address] [facility] [place] [address] Michael Puga DO [address] [facility] [place] [address] 3 month follow up Family Medicine [facility] Comment on above: 3 month follow up Start: 12-03-2024 Patient discharge [facility] Start: 12-01-2024 Physiotherapy of chest [facility] Start: 11-30-2024 Inhalation therapy procedure [facility] Start: 11-29-2024 Application of intermittent pneumatic compression device [facility] Start: 11-29-2024 Following clinical pathway protocol [facility] Start: 11-29-2024 Assessment of risk of venous thromboembolism [facility] Start: 11-29-2024 Catheterization of vein [facility] Start: 11-29-2024 Insertion of catheter into peripheral vein [facility] Start: 11-29-2024 Measuring intake and output [facility] Start: 11-29-2024 Oxygen therapy [facility] Start: 11-29-2024 Providing care according to standard [facility] Start: 11-29-2024 Provision of activity privileges [facility] Start: 11-29-2024 Referral to occupational therapist [facility] Start: 11-29-2024 Referral to service [facility] Start: 11-29-2024 [facility] Start: 11-29-2024 MRI of brain without contrast Brain without Contrast [facility] Start: 11-29-2024 Verification routine [facility] Start: 11-29-2024 Admission procedure [facility] Start: 11-29-2024 Hospital admission, emergency, from emergency room, medical nature [facility] Start: 11-29-2024 Thyroid stimulating hormone measurement [facility] Start: 11-29-2024 Patient referral to dietitian [facility] Start: 10-27-2024 End: 10-27-2024 Patient encounter procedure 10/27/2024 12:45 PM EDT OT/PT/Speech Visit [facility] [address] [place] [address] Sarah Merchant, PT [address] [place], [place] [id number] CONSULT/WEAKNESS [facility] Comment on above: CONSULT/WEAKNESS Start: 10-18-2024 End: 10-18-2024 Patient encounter procedure 10/18/2024 1:30 PM EDT OT/PT/Speech Visit [facility] [address] [place] [address] Wilfred Mcclellan, SHUTDOWN COORDINATOR [address] [place], [place] [id number] CONSULT/WEAKNESS [facility] Comment on above: CONSULT/WEAKNESS Start: 10-13-2024 Covid-19 Vaccine ( season) Covid-19 Vaccine ( season) [facility] Comment on above: Postponed from 08/05/2023 (Declined at t his time) Start: 10-13-2024 RSV Vaccine (1 - 1-dose 60+ series) RSV Vaccine (1 - 1-dose 60+ series) [facility] Comment on above: Postponed from 2001 (Declined at t his time) Start: 10-13-2024 RSV Vaccine (1 - 1-dose 75+ series) RSV Vaccine (1 - 1-dose 75+ series) [facility] Comment on above: Postponed from 2016 (Declined at t his time) Start: 10-09-2024 End: 10-09-2024 Patient encounter procedure 10/09/2024 12:45 PM EDT OT/PT/Speech Visit [facility] [address] [place] [address] Joy Sun, TOSHIA CONSULT/WEAKNESS [facility] Comment on above: CONSULT/WEAKNESS Start: 10-02-2024 End: 10-02-2024 Patient encounter procedure 10/02/2024 3:00 PM EDT OT/PT/Speech Visit [facility] [address] [place] [address] Pj Bledsoe, PT [address] [place] [address] CONSULT/WEAKNESS [facility] Comment on above: CONSULT/WEAKNESS Start: 09-28-2024 End: 09-28-2024 Patient encounter procedure 09/28/2024 2:15 PM EDT OT/PT/Speech Visit [facility] [address] [place] [address] Sarah Merchant, PT [address] [place] [address] CONSULT/WEAKNESS [facility] Comment on above: CONSULT/WEAKNESS Start: 08-30-2024 End: 08-30-2024 Patient encounter procedure 08/30/2024 3:00 PM EDT Office Visit [facility] [address] [place] [address] Michael Puga, [address] [place] [address] 6 month follow up [facility] Comment on above: 6 month follow up Start: 07-10-2024 End: 07-10-2024 Patient encounter procedure 07/10/2024 3:20 PM EDT Office Visit Family Medicine [facility] [address] [place], [place] [phone] Key Portillo, BAFFLE MOUNTER.PERFORMANCE IMPROVEMENT COORDINATOR [address] [place], [place] [id number] Requesting increase in Paxil [facility] Comment on above: Requesting increase in Paxil Start: 06-21-2024 End: 06-21-2024 Patient encounter procedure 06/21/2024 5:20 PM EST Office Visit [facility] [address] [place] [address] Michael Puga DO [address] [place] [address] 6 wk f/u labs and meds [facility] Comment on above: 6 wk f/u labs and meds Start: 05-26-2024 End: 08-25-2024 Comprehensive metabolic 2000 panel - Serum or Plasma COMPREHENSIVE METABOLIC PANEL Lab Routine Function kidney decreased Congestive heart failure, unspecified HF chronicity, unspecified heart failure type (HCC) Expected: 05/26/2024, Expires: 08/25/2024 [facility] Comment on above: Expected: 05/26/2024, Expires: Start: 05-26-2024 End: 08-25-2024 Natriuretic peptide.B prohormone N-Terminal [Mass/volume] in Serum or Plasma NT PRO BNP Lab Routine Function kidney decreased Congestive heart failure, unspecified HF chronicity, unspecified heart failure type (HCC) Expected: 05/26/2024, Expires: 08/25/2024 [facility] Work Phone: Comment on above: Expected: 05/26/2024, Expires: Start: 05-19-2024 End: 08-18-2024 CBC W Auto Differential panel - Blood COMPLETE BLOOD COUNT AND DIFFERENTIAL Lab Routine Congestive heart failure, unspecified HF chronicity, unspecified heart failure type (HCC) Function kidney decreased Expected: 05/19/2024, Expires: 08/18/2024 [facility] Comment on above: Expected: 05/19/2024, Expires: Start: 05-19-2024 End: 08-18-2024 Hepatic function 2000 panel - Serum or Plasma HEPATIC FUNCTION PNL Lab Routine Congestive heart failure, unspecified HF chronicity, unspecified heart failure type (HCC) Function kidney decreased Expected: 05/19/2024, Expires: 08/18/2024 [facility] Work Phone: Comment on above: Expected: 05/19/2024, Expires: Start: 05-19-2024 End: 08-18-2024 Natriuretic peptide.B prohormone N-Terminal [Mass/volume] in Serum or Plasma NT PRO BNP Lab Routine Congestive heart failure, unspecified HF chronicity, unspecified heart failure type (HCC) Function kidney decreased Expected: 05/19/2024, Expires: 08/18/2024 [facility] Comment on above: Expected: 05/19/2024, Expires: Start: 05-17-2024 End: 08-16-2024 Comprehensive metabolic 2000 panel - Serum or Plasma COMPREHENSIVE METABOLIC PANEL Lab STAT Function kidney decreased Congestive heart failure, unspecified HF chronicity, unspecified heart failure type (HCC) Expected: 05/17/2024, Expires: 08/16/2024 [facility] Work Phone: Comment on above: Expected: 05/17/2024, Expires: Start: 05-11-2024 End: 08-10-2024 Comprehensive metabolic 2000 panel - Serum or Plasma [facility] Comment on above: Expected: 05/11/2024, Expires: Start: 05-11-2024 End: 08-10-2024 Natriuretic peptide.B prohormone N-Terminal [Mass/volume] in Serum or Plasma [facility] Comment on above: Expected: 05/11/2024, Expires: Start: 05-11-2024 End: 08-10-2024 Thyrotropin [Units/volume] in Serum or Plasma [facility] Work Phone: Comment on above: Expected: 05/11/2024, Expires: Start: 05-11-2024 End: 08-10-2024 Thyroxine (T4) free [Mass/volume] in Serum or Plasma [facility] Comment on above: Expected: 05/11/2024, Expires: Start: 05-11-2024 End: 05-11-2024 Patient encounter procedure 05/11/2024 1:00 PM EST Office Visit [facility] [address] [facility] [place] [address] Key Portillo, BAFFLE MOUNTER.PERFORMANCE IMPROVEMENT COORDINATOR [address] [facility] [id number] TCM. [facility] Hosp f/u discharged 05-02-24. CHF [facility] [place] Comment on above: TCM. [facility] Hosp f/u discharged 05-02-24. C HF Start: 05-04-2024 End: 05-04-2024 Patient encounter procedure 05/04/2024 1:00 PM EST Office Visit [facility] [address] [facility] [place] [address] Key Portillo, BAFFLE MOUNTER.PERFORMANCE IMPROVEMENT COORDINATOR [address] [place] [address] right leg pain x 2 weeks [facility] Comment on above: right leg pain x 2 weeks Start: 05-03-2024 Advance Directive Discussion Advance Directive Discussion [facility] Start: 05-02-2024 Patient discharge [facility] Start: 05-01-2024 End: 05-01-2024 Patient encounter procedure 05/01/2024 2:15 PM EST OT/PT/Speech Visit [facility] [address] [place] [address] Sarah Merchant, PT [address] [place] [address] Right knee (referral in scanned docs) [facility] Comment on above: Right knee (referral in scanned docs) Start: 05-01-2024 Referral to service [facility] Start: 04-30-2024 End: 05-01-2024 [facility] Start: 04-30-2024 Dual pressure spontaneous ventilation support [facility] Start: 04-30-2024 Following clinical pathway protocol [facility] Start: 04-30-2024 Continuous pulse oximetry [facility] Start: 04-30-2024 Assessment of risk of venous thromboembolism [facility] Start: 04-30-2024 Elevation of affected extremity [facility] Start: 04-30-2024 Fall prevention [facility] Start: 04-30-2024 Inhalation therapy procedure [facility] Start: 04-30-2024 Insertion of catheter into peripheral vein [facility] Start: 04-30-2024 Introduction of urinary catheter [facility] Start: 04-30-2024 Measuring intake and output [facility] Start: 04-30-2024 Notification of physician [facility] Start: 04-30-2024 Oxygen therapy [facility] Start: 04-30-2024 Patient education [facility] Start: 04-30-2024 Patient referral to dietitian [facility] Start: 04-30-2024 Providing care according to standard [facility] Start: 04-30-2024 Provision of activity privileges [facility] Start: 04-30-2024 Referral to occupational therapist [facility] Start: 04-30-2024 Referral to service [facility] Start: 04-30-2024 Admission procedure [facility] Start: 04-27-2024 End: 04-27-2024 Patient encounter procedure 04/27/2024 11:40 AM EST Office Visit Family [facility] [address] [place] [address] Key Portillo, BAFFLE MOUNTER.[facility] [address] [place], [place] [id number] right leg pain x 2 weeks [facility] Comment on above: right leg pain x 2 weeks Start: 04-20-2024 End: 04-20-2024 Patient encounter procedure [facility] Comment on above: Right knee (referral in scanned docs) Start: 04-18-2024 End: 04-18-2024 Patient encounter procedure 04/18/2024 1:30 PM EST OT/PT/Speech Visit [facility] [address] [place] [address] Sarah Merchant, PT [address] [place] [address] Right knee (referral in scanned docs) [facility] Comment on above: Right knee (referral in scanned docs) Start: 03-31-2024 End: 03-31-2024 Patient encounter procedure 03/31/2024 1:15 PM EST Appointment [facility] [address] [place] [address] Raymundo De León MD [address] [place] [address] [facility] Start: 03-31-2024 Subsequent hospital visit by physician 03/31/2024 10:10 AM EST Hospital Encounter [facility] [address] [place] [address] Raymundo De León MD [address] [place] [address] Yvonne Manley MD [address] [place] [address] Kelsea Mo APRN.PROP MAKER Epigastric abdominal pain [R10.13] [facility] Comment on above: Epigastric abdominal pain [R10.13] Start: 03-27-2024 End: 03-27-2024 Anesthesia consultation 03/27/2024 2:20 PM EST PAT Pre Anesthesia [address] [place] [address] 1, Pacc [facility] [address] [place] [address] EGD Pre Anesthesia Comment on above: EGD Start: 03-23-2024 End: 03-23-2024 Patient encounter procedure 03/23/2024 12:45 PM EST OT/PT/Speech Visit [facility] [address] [place] [id number] Sarah Merchant, PT [address] [place], [place] [phone] Right knee (referral in scanned docs) [facility] Comment on above: Right knee (referral in scanned docs) Start: 03-20-2024 End: 03-20-2024 Patient encounter procedure 03/20/2024 2:15 PM EST OT/PT/Speech Visit [facility] [address] [place] [address] Sarah Merchant, PT [address] [place], [place] [phone] Right knee (referral in scanned docs) [facility] Comment on above: Right knee (referral in scanned docs) Start: 03-16-2024 End: 03-16-2024 Patient encounter procedure 03/16/2024 12:45 PM EST OT/PT/Speech Visit [facility] [address] [place], [place] [phone] Sarah Merchant, PT [address] [place], [place] [phone] Right knee (referral in scanned docs) [facility] Comment on above: Right knee (referral in scanned docs) Start: 03-14-2024 End: 03-14-2024 Patient encounter procedure 03/14/2024 10:00 AM EST OT/PT/Speech Visit [facility] [address] [place] [address] Joy Sun, SHUTDOWN COORDINATOR Right knee (referral in scanned docs) [facility] Comment on above: Right knee (referral in scanned docs) Start: 03-13-2024 End: 03-13-2024 Patient encounter procedure General Surgery Comment on above: Epigastric abdominal pain [R10.13] Epigastric abdominal pain [R10.13] - left VM stating she will be seeing Kimberlee and not Dr de león Start: 03-08-2024 End: 03-08-2024 Patient encounter procedure 03/08/2024 12:45 PM EST OT/PT/Speech Visit [facility] [address] [place], [place] [phone] Joy Sun, SHUTDOWN COORDINATOR Right knee (referral in scanned docs) [facility] Comment on above: Right knee (referral in scanned docs) Start: 03-02-2024 End: 03-02-2024 Patient encounter procedure 03/02/2024 12:45 PM EDT OT/PT/Speech Visit [facility] [address] [place], [place] [id number] Sarah Merchant, PT [address] [place], [place] [phone] Right knee (referral in scanned docs) [facility] Comment on above: Right knee (referral in scanned docs) Start: 03-01-2024 End: 03-01-2024 Patient encounter procedure 03/01/2024 5:40 PM EDT Office Visit [facility] [place] [address] [facility] [place] [address] Michael Puga DO [address] [place] [address] 3 month follow up [facility] [place] Comment on above: 3 month follow up Start: 02-17-2024 End: 02-17-2024 Patient encounter procedure 02/17/2024 3:45 PM EDT OT/PT/Speech Visit [facility] [address] [place] [address] Sarah Merchant, PT [address] [place], [place] [phone] Right knee (referral in scanned docs) [facility] Comment on above: Right knee (referral in scanned docs) Start: 02-14-2024 End: 02-14-2024 Patient encounter procedure 02/14/2024 1:30 PM EDT OT/PT/Speech Visit [facility] [address] [place] [address] Wilfred Mcclellan, SHUTDOWN COORDINATOR [address] [facility], [place] [phone] Right knee (referral in scanned docs) [facility] Comment on above: Right knee (referral in scanned docs) Start: 02-10-2024 End: 02-10-2024 Patient encounter procedure 02/10/2024 12:45 PM EDT OT/PT/Speech Visit [facility] [address] [place] [address] Sarah Merchant, PT [address] [place], [place] [phone] Right knee (referral in scanned docs) [facility] Comment on above: Right knee (referral in scanned docs) Start: 02-07-2024 End: 02-07-2024 Patient encounter procedure 02/07/2024 2:15 PM EDT OT/PT/Speech Visit [facility] [address] [place] [address] Sarah Merchant, PT [address] [place], [place] [phone] Right knee (referral in scanned docs) [facility] Comment on above: Right knee (referral in scanned docs) Start: 02-03-2024 End: 02-03-2024 Patient encounter procedure 02/03/2024 3:45 PM EDT OT/PT/Speech Visit [facility] [address] [place] [address] Sarah Merchant, PT [address] [place], [place] [phone] Right knee (referral in scanned docs) [facility] Comment on above: Right knee (referral in scanned docs) Start: 01-31-2024 End: 01-31-2024 Patient encounter procedure 01/31/2024 2:15 PM EDT OT/PT/Speech Visit [facility] [address] [place] [address] Sarah Merchant, PT [address] [place], [place] [phone] Right knee (referral in scanned docs) [facility] Comment on above: Right knee (referral in scanned docs) Start: 01-26-2024 End: 01-26-2024 Patient encounter procedure 01/26/2024 3:00 PM EDT OT/PT/Speech Visit [facility] [address] [place] [address] Wilfred Mcclellan, SHUTDOWN COORDINATOR [address] [place], [place] [phone] Right knee (referral in scanned docs) [facility] Comment on above: Right knee (referral in scanned docs) Start: 01-18-2024 End: 01-18-2024 Patient encounter procedure 01/18/2024 1:30 PM EDT OT/PT/Speech Visit [facility] [address] [place] [address] Sarah Merchant, PT [address] [place], [place] [phone] RECHECK Right knee (referral in scanned docs) [facility] Comment on above: RECHECK Right knee (referral in scanned docs) Start: 01-17-2024 DIABETES SCREEN DIABETES SCREEN [facility] Start: 01-02-2024 Covid-19 Vaccine () Covid-19 Vaccine () [facility] Start: 01-02-2024 Covid-19 Vaccine () Covid-19 Vaccine () [facility] Start: 01-02-2024 Influenza vaccination Influenza Vaccine (#1) [facility] Start: 12-16-2023 End: 12-16-2023 Patient encounter procedure [facility] Comment on above: Right knee (referral in scanned docs) RECHECK Right knee ( referral in scanned docs) Start: 12-13-2023 End: 12-13-2023 Patient encounter procedure 12/13/2023 3:45 PM EDT OT/PT/Speech Visit [facility] [address] [place] [address] Sarah Merchant, PT [address] [place], [place] [phone] Right knee (referral in scanned docs) [facility] Comment on above: Right knee (referral in scanned docs) Start: 12-07-2023 End: 12-07-2023 Patient encounter procedure 12/07/2023 4:30 PM EDT OT/PT/Speech Visit [facility] [address] [place], [place] [phone] Wilfred Mcclellan, SHUTDOWN COORDINATOR [address] [place], [place] [phone] Right knee (referral in scanned docs) [facility] Comment on above: Right knee (referral in scanned docs) Start: 12-02-2023 End: 12-02-2023 Patient encounter procedure 12/02/2023 3:45 PM EDT OT/PT/Speech Visit [facility] [address] [place] [address] Sarah Merchant, PT [address] [place], [place] [phone] Right knee (referral in scanned docs) [facility] Comment on above: Right knee (referral in scanned docs) Start: 12-01-2023 End: 12-01-2023 Patient encounter procedure 12/01/2023 1:20 PM EDT Office Visit [facility] [address] [facility] [place] [address] Michael Puga DO [address] [facility], [place] [phone] follow up, review labs [facility] Comment on above: follow up, review labs Start: 11-30-2023 End: 11-30-2023 Patient encounter procedure 11/30/2023 2:15 PM EDT OT/PT/Speech Visit [facility] [address] [place] [address] Sarah Merchant, PT [address] [place], [place] [phone] Right knee (referral in scanned docs) [facility] Comment on above: Right knee (referral in scanned docs) Start: 11-25-2023 End: 11-25-2023 Patient encounter procedure 11/25/2023 8:30 AM EDT OT/PT/Speech Visit [facility] [address] [place] [address] Sarah Merchant, PT [address] [place], [place] [phone] Right knee (referral in scanned docs) [facility] Comment on above: Right knee (referral in scanned docs) Start: 11-13-2023 End: 02-12-2024 CBC W Auto Differential panel - Blood COMPLETE BLOOD COUNT AND DIFFERENTIAL Lab Routine Primary hypertension Expected: 11/13/2023, Expires: 02/12/2024 [facility] Comment on above: Expected: 11/13/2023, Expires: Start: 11-13-2023 End: 02-12-2024 Comprehensive metabolic 2000 panel - Serum or Plasma COMPREHENSIVE METABOLIC PANEL Lab Routine Primary hypertension Expected: 11/13/2023, Expires: 02/12/2024 [facility] Work Phone: Comment on above: Expected: 11/13/2023, Expires: Start: 11-13-2023 End: 02-12-2024 Hemoglobin A1c in Blood HEMOGLOBIN A1C Lab Routine IFG (impaired fasting glucose) Expected: 11/13/2023, Expires: 02/12/2024 [facility] Comment on above: Expected: 11/13/2023, Expires: Start: 11-13-2023 End: 02-12-2024 Lipid 1996 panel - Serum or Plasma LIPID PANEL BASIC Lab Routine Primary hypertension Expected: 11/13/2023, Expires: 02/12/2024 [facility] Comment on above: Expected: 11/13/2023, Expires: Start: 11-13-2023 End: 02-12-2024 Thyroxine (T4) free [Mass/volume] in Serum or Plasma T4 FREE/FREE THYROXINE Lab Routine Subclinical hypothyroidism Expected: 11/13/2023, Expires: 02/12/2024 [facility] Comment on above: Expected: 11/13/2023, Expires: Start: 11-13-2023 End: 02-12-2024 Triiodothyronine (T3) [Mass/volume] in Serum or Plasma T3 Lab Routine Subclinical hypothyroidism Expected: 11/13/2023, Expires: 02/12/2024 [facility] Comment on above: Expected: 11/13/2023, Expires: Start: 10-14-2023 End: 01-13-2024 Thyrotropin [Units/volume] in Serum or Plasma THYROID STIMULATING HORMONE Lab Routine Subclinical hypothyroidism Expected: 10/14/2023, Expires: 01/13/2024 [facility] Comment on above: Expected: 10/14/2023, Expires: Start: 10-14-2023 End: 10-14-2023 Patient encounter procedure 10/14/2023 1:20 PM EDT [facility] [address] [place] [address] Key Portillo APRN.PERFORMANCE IMPROVEMENT COORDINATOR [address] [place] [address] Hospital Follow Up (TCM thru 10/15) [facility] Comment on above: Hospital Follow Up (TCM thru 10/15) Start: 10-06-2023 End: 01-05-2024 Comprehensive metabolic 2000 panel - Serum or Plasma COMPREHENSIVE METABOLIC PANEL Lab Routine Diarrhea, unspecified type Expected: 10/06/2023, Expires: 01/05/2024 [facility] Work Phone: Comment on above: Expected: 10/06/2023, Expires: Start: 08-05-2023 Covid-19 Vaccine () Covid-19 Vaccine () [facility] Start: 07-08-2023 End: 10-07-2023 Thyrotropin [Units/volume] in Serum or Plasma TSH BLD Lab Routine Thyroid disease Expected: 07/08/2023, Expires: 10/07/2023 [facility] Work Phone: Comment on above: Expected: 07/08/2023, Expires: 4 Start: 07-08-2023 End: 10-07-2023 Thyroxine (T4) free [Mass/volume] in Serum or Plasma T4 FREE/FREE THYROX Lab Routine Thyroid disease Expected: 07/08/2023, Expires: 10/07/2023 [facility] Work Phone: Comment on above: Expected: 07/08/2023, Expires: 4 Start: 07-08-2023 End: 10-07-2023 Triiodothyronine (T3) Free [Mass/volume] in Serum or Plasma T3 FREE BLD Lab Routine Thyroid disease Expected: 07/08/2023, Expires: 10/07/2023 [facility] Work Phone: Comment on above: Expected: 07/08/2023, Expires: 4 Start: 06-04-2023 COVID-19 VACCINE (3 - Booster for Pfizer series) COVID-19 VACCINE (3 - Booster for Pfizer series) [facility] Comment on above: Postponed from 09/27/2020 (Declined at t his time) Start: 06-04-2023 COVID-19 VACCINE (3 - Pfizer series) COVID-19 VACCINE (3 - Pfizer series) [facility] Comment on above: Postponed from 09/27/2020 (Declined at t his time) Start: 06-04-2023 Urine microalbumin profile DTAP,TDAP,TD (2 - Tdap) [facility] Comment on above: Postponed from 08/31/2013 (Declined at t his time) Start: 05-03-2023 Advance Directive Discussion Advance Directive Discussion [facility] Start: 04-21-2023 ANNUAL PCP TEAM CHRONIC DISEASE VISIT ANNUAL PCP TEAM CHRONIC DISEASE VISIT [facility] Start: 04-21-2023 BP CONTROLLED (<130/80) BP CONTROLLED (<130/80) [facility] in Start: 03-24-2023 End: 05-24-2023 CBC panel - Blood by Automated count CBC Lab Routine Primary hypertension Expected: 03/24/2023, Expires: 05/24/2023 [facility] Work Phone: Comment on above: Expected: 03/24/2023, Expires: 4 Start: 03-24-2023 End: 05-24-2023 Cobalamin (Vitamin B12) [Mass/volume] in Serum or Plasma VITAMIN B12 BLOOD Lab Routine Vitamin B12 deficiency Expected: 03/24/2023, Expires: 05/24/2023 [facility] Work Phone: Comment on above: Expected: 03/24/2023, Expires: 4 Start: 03-24-2023 End: 05-24-2023 Comprehensive metabolic 2000 panel - Serum or Plasma COMP METABOLIC PANEL Lab Routine Primary hypertension Expected: 03/24/2023, Expires: 05/24/2023 [facility] Work Phone: Comment on above: Expected: 03/24/2023, Expires: 4 Start: 03-24-2023 End: 05-24-2023 Hemoglobin A1c in Blood HGB A1C Lab Routine IFG (impaired fasting glucose) Expected: 03/24/2023, Expires: 05/24/2023 [facility] Work Phone: Comment on above: Expected: 03/24/2023, Expires: 4 Start: 03-24-2023 End: 05-24-2023 Thyrotropin [Units/volume] in Serum or Plasma TSH BLD Lab Routine Fatigue, unspecified type Obesity, Class II, BMI 35-39.9 IFG (impaired fasting glucose) Expected: 03/24/2023, Expires: 05/24/2023 [facility] Work Phone: Comment on above: Expected: 03/24/2023, Expires: 4 Start: 03-24-2023 End: 05-24-2023 Thyroxine (T4) free [Mass/volume] in Serum or Plasma T4 FREE/FREE THYROX Lab Routine Fatigue, unspecified type Obesity, Class II, BMI 35-39.9 IFG (impaired fasting glucose) Expected: 03/24/2023, Expires: 05/24/2023 [facility] Work Phone: Comment on above: Expected: 03/24/2023, Expires: 4 Start: 02-16-2023 ANNUAL PCP TEAM CHRONIC DISEASE VISIT ANNUAL PCP TEAM CHRONIC DISEASE VISIT [facility] Start: 02-16-2023 BP CONTROLLED (<130/80) BP CONTROLLED (<130/80) [facility] Start: 01-01-2023 Covid-19 Vaccine ( season) Covid-19 Vaccine () [facility] Start: 01-01-2023 Influenza vaccination [facility] Start: 12-16-2022 ANNUAL PCP TEAM CHRONIC DISEASE VISIT ANNUAL PCP TEAM CHRONIC DISEASE VISIT [facility] Start: 09-19-2022 End: 11-19-2022 25-hydroxyvitamin D3 [Mass/volume] in Serum or Plasma VITAMIN D 25 HYDROXY Lab Routine Vitamin D deficiency Expected: 09/19/2022, Expires: 11/19/2022 [facility] Work Phone: Comment on above: Expected: 09/19/2022, Expires: 3 Start: 09-19-2022 End: 11-19-2022 Cobalamin (Vitamin B12) [Mass/volume] in Serum or Plasma VITAMIN B12 BLOOD Lab Routine Vitamin B12 deficiency Expected: 09/19/2022, Expires: 11/19/2022 [facility] Work Phone: Comment on above: Expected: 09/19/2022, Expires: 3 Start: 09-19-2022 End: 11-19-2022 Comprehensive metabolic 2000 panel - Serum or Plasma COMP METABOLIC PANEL Lab Routine Fatigue, unspecified type Expected: 09/19/2022, Expires: 11/19/2022 [facility] Work Phone: Comment on above: Expected: 09/19/2022, Expires: 3 Start: 09-19-2022 End: 11-19-2022 Hemoglobin A1c in Blood HGB A1C Lab Routine IFG (impaired fasting glucose) Expected: 09/19/2022, Expires: 11/19/2022 [facility] Work Phone: Comment on above: Expected: 09/19/2022, Expires: 3 Start: 09-19-2022 End: 11-19-2022 Iron and Iron binding capacity panel - Serum or Plasma IRON + TIBC Lab Routine Iron deficiency Expected: 09/19/2022, Expires: 11/19/2022 [facility] Work Phone: Comment on above: Expected: 09/19/2022, Expires: 3 Start: 09-19-2022 End: 11-19-2022 Lipid 1996 panel - Serum or Plasma LIPID PANEL BASIC Lab Routine Hyperlipidemia, unspecified hyperlipidemia type Expected: 09/19/2022, Expires: 11/19/2022 [facility] Work Phone: Comment on above: Expected: 09/19/2022, Expires: 3 Start: 06-13-2022 ANNUAL PCP TEAM CHRONIC DISEASE VISIT ANNUAL PCP TEAM CHRONIC DISEASE VISIT [facility] Start: 06-04-2022 End: 08-04-2022 25-hydroxyvitamin D3 [Mass/volume] in Serum or Plasma [facility] Work Phone: Comment on above: Expected: 06/04/2022, Expires: Start: 06-04-2022 End: 08-04-2022 CBC W Auto Differential panel - Blood [facility] Work Phone: Comment on above: Expected: 06/04/2022, Expires: Start: 06-04-2022 End: 08-04-2022 Cobalamin (Vitamin B12) [Mass/volume] in Serum or Plasma [facility] Work Phone: Comment on above: Expected: 06/04/2022, Expires: Start: 06-04-2022 End: 08-04-2022 Comprehensive metabolic 2000 panel - Serum or Plasma [facility] Work Phone: Comment on above: Expected: 06/04/2022, Expires: Start: 06-04-2022 End: 08-04-2022 Ferritin [Mass/volume] in Serum or Plasma [facility] Work Phone: Comment on above: Expected: 06/04/2022, Expires: Start: 06-04-2022 End: 08-04-2022 Hemoglobin A1c in Blood [facility] Work Phone: Comment on above: Expected: 06/04/2022, Expires: 3 Start: 06-04-2022 End: 08-04-2022 Iron and Iron binding capacity panel - Serum or Plasma [facility] Work Phone: Comment on above: Expected: 06/04/2022, Expires: 3 Start: 06-04-2022 End: 08-04-2022 Natriuretic peptide.B prohormone N-Terminal [Mass/volume] in Serum or Plasma [facility] Work Phone: Comment on above: Expected: 06/04/2022, Expires: 3 Start: 06-04-2022 End: 08-04-2022 Thyrotropin [Units/volume] in Serum or Plasma [facility] Work Phone: Comment on above: Expected: 06/04/2022, Expires: 3 Start: 05-03-2022 ADVANCE DIRECTIVE DISCUSSION ADVANCE DIRECTIVE DISCUSSION [facility] Start: 01-01-2022 Influenza vaccination INFLUENZA (#1) [facility] Start: 05-03-2021 ADVANCE DIRECTIVE DISCUSSION ADVANCE DIRECTIVE DISCUSSION [facility] Start: 01-02-2021 COVID-19 VACCINE (3 - Booster for Pfizer series) COVID-19 VACCINE (3 - Booster for Pfizer series) [facility] Start: 09-27-2020 COVID-19 VACCINE (3 - Booster for Pfizer series) COVID-19 VACCINE (3 - Booster for Pfizer series) [facility] Start: 03-04-2019 BP CONTROLLED (<130/80) BP CONTROLLED (<130/80) [facility] Start: 05-12-2017 FECAL OCCULT BLOOD FECAL OCCULT BLOOD [facility] Start: 05-06-2017 End: 05-06-2017 Appointment Appointment [facility] Work Phone: Start: 12-03-2016 End: 12-03-2016 Appointment Appointment [facility] Work Phone: Start: 12-03-2016 End: 12-03-2016 Follow Up Appt 6 months Follow Up Appt 6 months [facility] Work Phone: Start: 12-03-2016 End: 12-03-2016 Pacer Clinic Pacer [facility] Work Phone: Start: 10-22-2016 End: 10-22-2016 Appointment Appointment [facility] Work Phone: Start: 10-22-2016 End: 10-22-2016 Follow Up Appt 6 months Follow Up Appt 6 months [facility] Work Phone: Start: 10-22-2016 End: 10-22-2016 MMM MMM [facility] Work Phone: Start: 06-03-2016 End: 06-03-2016 Follow Up Appt 6 months Follow Up Appt 6 months [facility] Work Phone: Start: 06-03-2016 End: 06-03-2016 [facility] Work Phone: Start: 2016 RSV Vaccine (1 - 1-dose 75+ series) RSV Vaccine (1 - 1-dose 75+ series) [facility] Start: 04-15-2016 End: 04-15-2016 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 [facility] Work Phone: Start: 04-15-2016 End: 04-15-2016 Follow Up Appt 6 months Follow Up Appt 6 months [facility] Work Phone: Start: 12-02-2015 End: 04-06-2016 Follow Up Appt 3 months Follow Up Appt 3 months [facility] Work Phone: Start: 12-02-2015 End: 04-06-2016 [facility] Work Phone: Start: 08-30-2015 End: 08-30-2015 Follow Up Appt 6 months Follow Up Appt 6 months [facility] Work Phone: Start: 08-30-2015 End: 08-30-2015 Follow Up Appt 6 weeks Follow Up Appt 6 weeks [facility] Work Phone: Start: 08-30-2015 End: 08-30-2015 MMM MMM [facility] Work Phone: Start: 06-11-2015 End: 06-11-2015 24 hour holter monitor 24 hour holter monitor [facility] Work Phone: Start: 06-11-2015 End: 06-11-2015 Echocardiography Echocardiogram (complete) [facility] Work Phone: Start: 05-28-2015 End: 05-28-2015 *BMP *BMP [facility] Work Phone: Start: 05-28-2015 End: 05-28-2015 Carotid duplex Carotid duplex [facility] Work Phone: Start: 05-28-2015 End: 05-28-2015 Follow Up Appt 3 months Follow Up Appt 3 months [facility] Work Phone: Start: 05-28-2015 End: 08-16-2015 Follow Up Appt 6 months Follow Up Appt 6 months [facility] Work Phone: Start: 05-28-2015 End: 05-28-2015 MMM MMM [facility] Work Phone: Start: 05-28-2015 End: 08-16-2015 Pacer Clinic Pacer Clinic [facility] Work Phone: Start: 01-16-2015 SHINGRIX VACCINE (1 of 2) SHINGRIX VACCINE (1 of 2) [facility] Start: 01-16-2015 SHINGRIX VACCINE (2 of 3) SHINGRIX VACCINE (2 of 3) [facility] Start: 11-22-2014 End: 11-22-2014 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 [facility] Work Phone: Start: 11-22-2014 End: [...] 6 months Follow Up Appt 6 months [facility] Work Phone: Start: 07-25-2014 End: 11-07-2014 Pacer Clinic Pacer Clinic [facility] Work Phone: Start: 05-25-2014 End: 11-07-2014 Follow Up Appt 6 months Follow Up Appt 6 months [facility] Work Phone: Start: 05-25-2014 End: 05-25-2014 MMM MMM [facility] Work Phone: Start: 05-25-2014 End: 11-07-2014 Pacer Clinic Pacer Clinic [facility] Work Phone: Start: 01-26-2014 End: 11-07-2014 Follow Up Appt 6 months Follow Up Appt 6 months [facility] Work Phone: Start: 01-26-2014 End: 11-07-2014 Pacer Clinic Pacer Clinic [facility] Work Phone: Start: 11-22-2013 End: 11-22-2013 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 [facility] Work Phone: Start: 11-22-2013 End: 11-22-2013 Follow Up Appt 6 months Follow Up Appt 6 months [facility] Work Phone: Start: 10-25-2013 End: 11-22-2013 Follow Up Appt 3 months Follow Up Appt 3 months [facility] Work Phone: Start: 10-25-2013 End: 11-22-2013 Pacer Clinic Pacer Clinic [facility] Work Phone: Start: 08-31-2013 Urine microalbumin profile DTAP,TDAP,TD (2 - Tdap) [facility] Start: 08-16-2013 End: 08-16-2013 Follow Up Appt Other Follow Up Appt Other [facility] Work Phone: Start: 07-19-2013 [...] Phone: Start: 07-19-2013 End: 07-19-2013 MMM MMM [facility] Work Phone: Start: 07-18-2013 End: 07-19-2013 Follow Up Appt 3 months Follow Up Appt 3 months [facility] Work Phone: Start: 07-18-2013 End: 07-19-2013 Pacer Clinic Pacer Clinic [facility] Work Phone: Start: 05-24-2013 End: 05-26-2013 *BMP *BMP [facility] Work Phone: Start: 05-24-2013 End: 05-24-2013 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 [facility] Work Phone: Start: 05-24-2013 End: 05-24-2013 Follow Up Appt 6 months Follow Up Appt 6 months [facility] Work Phone: Start: 05-24-2013 End: 07-18-2013 Follow Up Appt Other Follow Up Appt Other [facility] Work Phone: Start: 04-10-2013 End: 05-16-2013 Follow Up Appt 3 months Follow Up Appt 3 months [facility] Work Phone: Start: 04-10-2013 End: 05-16-2013 Pacer Clinic Pacer Clinic [facility] Work Phone: Start: 12-07-2012 End: 05-16-2013 Follow Up Appt 3 months Follow Up Appt 3 months [facility] Work Phone: Start: 12-07-2012 End: 05-16-2013 Pacer Clinic Pacer Clinic [facility] Work Phone: Start: 11-15-2012 End: 11-15-2012 Follow Up Appt 6 months Follow Up Appt 6 months [facility] Work Phone: Start: 11-15-2012 End: 11-15-2012 MMM MMM [facility] Work Phone: Start: 05-18-2012 End: 05-16-2013 *BMP *BMP [facility] Work Phone: Start: 05-18-2012 End: 05-16-2013 *CBC with Differential *CBC with Differential [facility] Work Phone: Start: 05-18-2012 End: 05-16-2013 Follow Up Appt 6 months Follow Up Appt 6 months [facility] Work Phone: Start: 05-18-2012 End: 05-16-2013 Thyroid stimulating hormone (TSH) *TSH [facility] Work Phone: Start: 05-18-2012 End: 05-16-2013 Thyroxine (T4) *T4 (Total) [facility] Work Phone: Start: 10-27-2011 End: 10-27-2011 Follow Up Appt 6 months Follow Up Appt 6 months [facility] Work Phone: Start: 07-14-2011 End: 05-16-2013 Follow Up Appt 3 months Follow Up Appt 3 months [facility] Work Phone: Start: 05-05-2011 End: 05-07-2011 *BMP *BMP [facility] Work Phone: Start: 05-05-2011 End: 05-06-2011 aPTT *PTT-Partial Thromboplastin Time [facility] Work Phone: Start: 05-05-2011 End: 05-06-2011 aPTT Coag time (PPP) *PTT-Partial Thromboplastin Time [facility] Work Phone: Start: 05-05-2011 End: 05-06-2011 CBC W Auto Differential panel - Blood *CBC without Diff [facility] Work Phone: Start: 05-05-2011 End: 05-06-2011 Chest x-ray X-Ray, Chest, PA & Lateral [facility] Work Phone: Start: 05-05-2011 End: 05-06-2011 Coagulation factor induced.INR assay in platelet poor plasma *PT/INR [facility] Work Phone: Start: 05-05-2011 End: 05-07-2011 Electrocardiogram, complete EKG (In office) [employer] Work Phone: Start: 05-05-2011 End: 05-16-2013 Follow Up Appt Other Follow Up Appt Other [facility] Work Phone: Start: 05-05-2011 End: 05-06-2011 Left Heart Cath Left Heart Cath [facility] Work Phone: Start: 04-07-2011 End: 04-07-2011 Follow Up Appt 3 months Follow Up Appt 3 months [facility] [facility] Work Phone: Start: 04-02-2006 Medicare Annual Wellness Visit Medicare Annual Wellness Visit [facility] Start: 2001 RSV Vaccine (1 - 1-dose 60+ series) RSV Vaccine (1 - 1-dose 60+ series) [facility] Amphetamines [Presen ce] in Urine by Screen method >1000 ng/mL [facility] Bacteria identified in Urine by Culture URINE CULTURE Microbiology Routine Urinary frequency 10/20/2021 4:08 PM EDT [facility] Work Phone: Benzodiazepine measurement, urine [facility] Cocaine measurement, urine [facility] End: 06-04-2023 ECG COMPLETE ECG COMPLETE ECG Routine SOB (shortness of breath) on exertion 1 Occurrences starting 06/04/2022 until 06/04/2023 [facility] Work Phone: Comment on above: 1 Occurrences starting 06/04/2022 until 06/04/2023 ECG COMPLETE ECG COMPLETE ECG Fatigue, unspecified type SOB (shortness of breath) on exertion Bilateral leg edema 06/04/2022 3:25 PM EST [facility] End: 06-04-2023 Echocardiography ECHO Cardiology Routine SOB (shortness of breath) on exertion 1 Occurrences starting 06/04/2022 until 06/04/2023 [facility] Work Phone: Comment on above: 1 Occurrences starting 06/04/2022 until 06/04/2023 End: 12-18-2022 EGD DIAGNOSTIC EGD DIAGNOSTIC Endoscopy Routine Gastroesophageal reflux disease with esophagitis without hemorrhage 1 Occurrences starting 12/18/2021 until 12/18/2022 [facility] Work Phone: Comment on above: 1 Occurrences starting 12/18/2021 until 12/18/2022 End: 03-13-2025 EGD DIAGNOSTIC EGD DIAGNOSTIC Endoscopy Routine Epigastric abdominal pain Pulmonary hypertension (HCC) 1 Occurrences starting 03/13/2024 until 03/13/2025 [facility] Work Phone: Comment on above: 1 Occurrences starting 03/13/2024 until 03/13/2025 Ethanol [Mass/volume ] in Serum or Plasma [facility] fentaNYL [Presence] in Urine by Screen method [facility] Folate [Moles/volume ] in Serum or Plasma [facility] Glucose [Mass/volume ] in Serum or Plasma GLUCOSE, BLOOD (POC) Lab Routine Urinary frequency Glucosuria Ordered: 10/20/2021 [facility] Work Phone: Comment on above: Ordered: 10/20/2021 Hemoglobin A1c/Hemoglobin.total in Blood [facility] Magnesium measurement [facility] Methadone measuremen t, urine [facility] NM Heart Views W str ess and W radionuclide IV [facility] Noninvasive ear/puls e oximetry single deter NONINVASV OXYGEN SATUR;SINGLE Procedures Routine Congestive heart failure, unspecified HF chronicity, unspecified heart failure type (HCC) Obstructive lung disease (HCC) Chronic respiratory failure with hypoxia (HCC) Ordered: 09/07/2024 [facility] Work Phone: Comment on above: Ordered: 09/07/2024 Patient Education ED Fall Prevention [facility] Work Phone: Patient referral [facility] Work Phone: Phencyclidine [Prese nce] in Urine [facility] End: 01-11-2024 Polysomnogram POLYSOMNOGRAM (PSG) Procedures Routine Fatigue, unspecified type 1 Occurrences starting 01/11/2023 until 01/11/2024 [facility] Work Phone: Comment on above: 1 Occurrences starting 01/11/2023 until 01/11/2024 End: 01-21-2024 Radiologic exam chest 2 views XR CHEST 2V FRONTAL/LAT Radiology Routine WELCH (dyspnea on exertion) 1 Occurrences starting 12/22/2022 until 01/21/2024 [facility] Work Phone: Comment on above: 1 Occurrences starting 12/22/2022 until 01/21/2024 End: 01-21-2024 SPIROMETRY - BASELINE AND POST DILATOR SPIROMETRY - BASELINE AND POST DILATOR PFT Routine WELCH (dyspnea on exertion) 1 Occurrences starting 12/22/2022 until 01/21/2024 [facility] Work Phone: Comment on above: 1 Occurrences starting 12/22/2022 until 01/21/2024 SPIROMETRY - BASELIN E AND POST DILATOR SPIROMETRY - BASELINE AND POST DILATOR PFT Routine WELCH (dyspnea on exertion) 12/28/2022 2:06 PM EDT [facility] Work Phone: SURGICAL PATHOLOGY [facility] Work Phone: Comment on above: Release Upon Ordering for 1 Occurrences starting 01/08/2022, 1 completed SURGICAL PATHOLOGY [facility] Work Phone: Comment on above: Release Upon Ordering for 1 Occurrences starting 03/31/2024, 1 completed Urine cannabinoid measurement [facility] Urine opiate measurement [facility] End: 12-30-2024 XR Chest PA and Lateral XR CHEST 2V FRONTAL/LAT Radiology Routine Rhonchi Acute bronchitis, unspecified organism 1 Occurrences starting 12/01/2023 until 12/30/2024 [facility] Work Phone: Comment on above: 1 Occurrences starting 12/01/2023 until 12/30/2024 End: 06-10-2025 XR Chest PA and Lateral XR CHEST 2V FRONTAL/LAT Radiology Routine Congestive heart failure, unspecified HF chronicity, unspecified heart failure type (HCC) Hospital discharge follow-up 1 Occurrences starting 05/11/2024 until 06/10/2025 [facility] Comment on above: 1 Occurrences starting 05/11/2024 until 06/10/2025 [facility] Immunizations Immunization Date Immunization Notes Care Provider Deric linares 03-01-2024 pneumococcal Conjuga te, unspecified formulation Michael Levyrison DO Work Phone: [facility] Work Phone: 03-01-2024 influenza, high dose seasonal, preservative-free Michael Puga DO Work Phone: [facility] 03-01-2024 pneumococcal conjuga te (PCV20) vaccine, 20 valent (PREVNAR 20) Michael Puga DO Work Phone: [facility] 03-01-2024 influenza virus vacc ine, unspecified formulation Key Portillo APRN.PERFORMANCE IMPROVEMENT COORDINATOR Work Phone: [facility] 04-05-2023 COVID-19 vaccine, ag e 12+ yr, season ([employer]) Michael Puga DO Work Phone: [facility] Work Phone: 04-05-2023 influenza (HD-IIV4) vaccine, age 65+ yr, high dose, quadrivalent, PF (FLUZONE HIGH-DOSE) Michael Puga DO Work Phone: [facility] Work Phone: 04-05-2023 influenza virus vacc ine, unspecified formulation Sarah Merchant PT Work Phone: [facility] 02-16-2022 influenza, high-dose , quadrivalent vaccine (FLUZONE HIGH DOSE QUADRIVALENT) Michael Puga DO Work Phone: [facility] Work Phone: 02-16-2022 influenza virus vacc ine, unspecified formulation [employer] Work Phone: [facility] 03-13-2021 influenza, high-dose , quadrivalent vaccine (FLUZONE HIGH DOSE QUADRIVALENT) July [place] PA-C Work Phone: [facility] 01-11-2019 influenza, high dose seasonal, preservative-free July Jose PA-C Work Phone: [facility] Work Phone: 12-24-2018 tetanus toxoid, redu alisa diphtheria toxoid, and acellular pertussis vaccine, adsorbed Dr. Michael Puga Work Phone: [facility] 02-21-2018 influenza, high dose seasonal, preservative-free July [place] PA-C Work Phone: [facility] 03-15-2017 influenza, high dose seasonal, preservative-free July Jose PA-C Work Phone: [facility] Work Phone: 01-19-2017 influenza, injectabl e, quadrivalent, preservative free Dr. Michael Puga DO Work Phone: [facility] 01-19-2017 influenza, seasonal, injectable Dr. Michael Puga Work Phone: [facility] Work Phone: 05-06-2016 pneumococcal polysaccharide vaccine, 23 valent July Jose PA-C Work Phone: [facility] Work Phone: 03-09-2016 influenza, high dose seasonal, preservative-free July [place] PA-C Work Phone: [facility] Work Phone: 02-13-2016 influenza, high dose seasonal, preservative-free July Jose PA-C Work Phone: [facility] Work Phone: 02-01-[address] Michael Puga Work Phone: [facility] 03-11-2015 pneumococcal conjuga te vaccine, 13 valent July [place] PA-C Work Phone: [facility] 02-17-2015 influenza, high dose seasonal, preservative-free July Garcia PA-C Work Phone: [facility] 11-21-2014 zoster vaccine, live July ALVA-Marilee Work Phone: [facility] Work Phone: 04-12-2006 influenza virus vacc ine, unspecified formulation July ALVA-Marilee Work Phone: [facility] Work Phone: 04-12-2006 pneumococcal polysaccharide vaccine, 23 valent July ALVA-Marilee Work Phone: [facility] Work Phone: 09-01-2003 diphtheria and tetan us toxoids, adsorbed for pediatric use July ALVA-Marilee Work Phone: [facility] Work Phone: Payers Date Payer Category Payer Self-pay [id number] 2015 Private Health Insurance JENNIFER BARRY PPO [id number] 2015-Present [phone] [address] [place] [address] [facility] [id number] 2015 Private Health Insurance [id number] 2006 Medicare MEDICARE MEDICAR E A AND B [id number] 2006-Present [phone] [place] [address] Medicare [id number] 2006 Medicare [id number] 2006 Medicare [id number] 2005 Private Health Insurance 2 [id number] Unknown Unknown [id number] 2.16.840.1.722867.3.579. 2.462 Unknown [id number] 2.16.840.1.935170.3.579. 2.462 Unknown [id number] 2.16.840.1.817067.3.579. 2.462 Unknown [id number] 2.16.840.1.515272.3.579. 2.462 Unknown [id number] 2.16.840.1.186390.3.579. 2.462 Unknown [id number] 2.16.840.1.131904.3.579. 2.462 Unknown [id number] 2..840.1.788775.3.579. 2.462 Unknown [id number] 2.16.840.1.005453.3.579. 2.462 Unknown [id number] 2.16.840.1.340583.3.579. 2.462 Unknown [id number] 2.16.840.1.329697.3.579. 2.462 Unknown [id number] 2.16.840.1.582652.3.579. 2.462 Unknown [id number] 2.16.840.1.835245.3.579. 2.462 Unknown [id number] 2.16.840.1.170743.3.579. 2.462 Unknown [id number] 2.16.840.1.667845.3.579. 2.462 Unknown [id number] 2.16.840.1.365378.3.579. 2.462 Unknown [id number] 2.16.840.1.980342.3.579. 2.462 Unknown [id number] 2.16.840.1.419646.3.579. 2.462 Unknown [id number] 2.16.840.1.062647.3.579. 2.462 Unknown [id number] 2.16.840.1.403779.3.579. 2.462 Unknown [id number] 2.16.840.1.294705.3.579. 2.462 Unknown [id number] 2.16.840.1.401756.3.579. 2.462 Unknown [id number] 2.16.840.1.043561.3.579. 2.462 Unknown [id number] 2.16.840.1.166190.3.579. 2.462 Unknown [id number] 2.16.840.1.069205.3.579. 2.462 Unknown [id number] 2.16.840.1.375730.3.579. 2.462 Unknown [id number] 2.16.840.1.327001.3.579. 2.462 Unknown [id number] 2.16840.1.123488.3.579. 2.462 Unknown [id number] 2.16.840.1.102563.3.579. 2.462 Unknown [id number] 2.16.840.1.375833.3.579. 2.462 Unknown [id number] 2.16840.1.769904.3.579. 2.462 Unknown [id number] 2.16.840.1.396777.3.579. 2.462 Unknown [id number] 2.16.840.1.644210.3.579. 2.462 Unknown [id number] 2.16.840.1.833359.3.579. 2.462 Unknown [id number] 2.16.840.1.102451.3.579. 2.462 Unknown [id number] 2.16.840.1.531406.3.579. 2.462 Unknown [id number] 2..840.1.025848.3.579. 2.462 Unknown [id number] 2.16.840.1.845881.3.579. 2.462 Unknown [id number] 2.16.840.1.439849.3.579. 2.462 Social History Date Type Detail Facility [facility] Start: 06-09-2021 Tobacco smokin g consumption unknown [facility] Start: 12-16-2021 End: 11-29-2024 Tobacco smoking status NHIS Never smoked tobacco [facility] Start: 06-13-2021 End: 08-17-2024 Alcohol intake Ex-drinker (finding) [facility] Start: 12-12-2018 History SDOH Food Worry 1 [facility] Start: 12-12-2018 History SDOH Transpo rt Med 2 [facility] Start: 1940 Sex Assigned At Not on file C [facility] Start: 08-23-2021 End: 02-16-2022 Exposure to SARS-CoV-2 (event) Not sure [facility] Start: 05-06-2017 None [facility] Start: 12-24-2018 With Family [facility] Start: 1940 Sex Assigned At Female [facility] Start: 12-16-2021 Tobacco use and exposure Smokeless tobacco non-user [facility] Work Phone: Start: 12-22-2022 End: 01-26-2024 History of Social function [facility] Start: 12-22-2022 End: 01-26-2024 Tobacco use panel [facility] Adult Depression Screening Assessment 0 [facility] (I/We) worried wheth er (my/our) food would run out before (I/we) got money to buy more. Never true [facility] Start: 07-14-2024 End: 07-20-2024 Sex Female (finding) [facility] Medical Equipment Procedure Code Equipment Code Equipment Origin al Text Equipment Identifier Dates ([id number]) Dual-chamber implantable pacemaker, rate-responsive [id number] FDA Start: 06-09-2021 Use with blood glucose test 2 times daily, Insulin Dep? No [id number] Start: 08-30-2024 Use with blood glucose test 2 times daily. Insulin Dep? No [id number] Start: 08-30-2024 PACEMAKER LEAD FDA Start: 01-29-2011 PACEMAKER LEAD FDA Start: 01-29-2011 Goals Date Patient Goal Desired Activity /State Personal health goal Functional Status Date Assessment Result Facility 12-03-2024 Functional status Ambulates;Up a d jane;Chair [facility] Work Phone: 05-02-2024 Functional status Ambulates;Chair [facility] Work Phone: 11-28-2013 Are you deaf, or do you have serious difficulty hearing No 11/28/2013 4:55 PM EDT Rain 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), CROZER No [facility] 11-28-2013 Are you blind, or do you have serious difficulty seeing, even when wearing glasses No 11/28/2013 4:55 PM EDT Rian 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), CROZER No [facility] 11-28-2013 Do you have serious difficulty walking or climbing stairs No 11/28/2013 4:55 PM EDT Rain 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), CROZER No [facility] 11-28-2013 Do you have difficul ty dressing or bathing No 11/28/2013 4:55 PM EDT Rain 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), CROZER No [facility] 11-28-2013 Because of a physica l, mental, or emotional condition, do you have difficulty doing errands alone such as visiting a physician's office or shopping No 11/28/2013 4:55 PM EDT Rain 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), CROZER No [facility] Mental Status Date Assessment Result Facility 12-03-2024 Cognitive function Voice/Name [facility] Work Phone: 11-29-2024 Cognitive function Level Of Cons ciousness Awake;Alert;Appropriate;Fol lows Commands [facility] Work Phone: 05-02-2024 Cognitive function Voice/Name [facility] Work Phone: 11-28-2013 Because of a physica l, mental, or emotional condition, do you have serious difficulty concentrating, remembering, or making decisions No 11/28/2013 4:55 PM EDT Rain 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), CROZER No [facility] Clinical Notes 10-17-2020 to 12-03-2024 Note Date & Type Note Facility 12-03-2024 Discharge summary [facility] 12-02-2024 Progress note Note Date/Time December 02, 2024 4:17pm [facility] Medical Records Department [address] [place] [address] Progress Note - Hospitalist 12/02/24 1614 MR#: [id number] Acct: [id number] Name: MICHAEL MEIER Rep #:[id number] 4 : 1940 84 From: Waleska Phillips MD PCP: Dr. Michael Puga, DO Status:AD M [facility] Location: [place] [address] Reason for Visit Chief Complaint: Right Upper [...] (Auto) 72.7 H, Lymph % (Auto) 11.2 L,Fajardo % (Auto) 11.7 H, Eos % (Auto) [...] DVT: SCDs Charges/Coding Visit Charges Inpatient E&M: 96357 Subs Hosp L1 12/02/24 1617 <Electronically signed by Waleska Phillips MD> Cosigner Signature (if applicable): CC: ~ Signed [facility] Work Phone: 1(528) 431-346708-02-2025 Progress note [facility] Medical Records Department [address] [place] [address] Progress Note - Hospitalist 12/02/24 1614 MR#: [id number] Acct: [id number] Name: MICHAEL MEIER Rep #:[id number] 4 : 1940 84 From: Waleska Phillips MD PCP: Dr. Michael Puga, DO Status:AD M [facility] Location: [place] [address] Reason for Visit Chief Complaint: Right Upper [...] (Auto) 72.7 H, Lymph % (Auto) 11.2 L,Fajardo % (Auto) 11.7 H, Eos % (Auto) [...] DVT: SCDs Charges/Coding Visit Charges Inpatient E&M: 26005 Subs Hosp L1 12/02/24 1617 Cosigner Signature (if applicable): CC: ~ Signed [facility]08-01-2025 Progress note Author Waleska Phillips [facility] Note Date/Time December 01, 2024 5:5 7pm [facility] Medical Records Department [address] [place] [address] Progress Note - Hospitalist 12/01/24 1451 MR#: [id number] Acct: [id number] Name: HARDEEPMICHAEL Deras Rep #:[id number] 4 : 1940 84 From: Waleska Phillips MD PCP: Dr. Michael Puga, DO Status:AD M [facility] Location: [place] [address] Reason for Visit Chief Complaint: Right Upper [...] (Auto) 70.9 H, Lymph % (Auto) 13.0 L,Fajardo % (Auto) 12.3 H, Eos % (Auto) [...] deficits, cranial nerves II through XII intact, mqxjvn-[id number]-[id number] with some difficulty with left hand but [...] documentation, 43Minutes Charges/Coding Visit Charges Inpatient E&M: 68833 Subs Hosp L2 12/01/24 1757 <Electronically signed by Waleska Phillips MD> Cosigner Signature (if applicable): CC: ~ Signed [facility] Work Phone: 1(761) 587-740508-01-2025 Progress note [facility] Medical Records Department [address] [place] [address] Progress Note - Hospitalist 12/01/24 1451 MR#: [id number] Acct: [id number] Name: MICHAEL MEIER Rep #:[id number] 4 : 1940 84 From: Waleska Phillips MD PCP: Dr. Michael Pgua, DO Status:AD M [facility] Location: [place] [address] Reason for Visit Chief Complaint: Right Upper [...] (Auto) 70.9 H, Lymph % (Auto) 13.0 L,Fajardo % (Auto) 12.3 H, Eos % (Auto) [...] deficits, cranial nerves II through XII intact, [id number]-[id number] with some difficulty with left hand but [...] documentation, 43Minutes Charges/Coding Visit Charges Inpatient E&M: 95948 Subs Hosp L2 12/01/24 2130 Cosigner Signature (if applicable): CC: ~ Signed [facility]08-01-2025 Consult note Author Kyara Ponce [facility] Note Date/Time December 01, 2024 12: 49pm [facility] Medical Records Department [address] [place] [address] Consultation - Neurology 12/01/24 1243 MR#: [id number] Acct: [id number] Name: MICHAEL MEIER Rep #:[id number] 4 : 1940 84 From: Kyara Ponce MD PCP: Dr. Michael Puga, DO Status:AD M [facility] Location: [place] [address] Assessment and Plan: Neuro Assessment/Plan 84 F with a past medical history of essential hypertension, hyperlipidemia, hypothyroidism paroxysmal atrial fibrillation SSS; s/p PPM (2021), morbid obesity, JOSE, pulmonary hypertension, neuropathy; depression with anxiety OA whopresented to [facility] ER complaining of Right upper and lower [...] neuropathy; depression with anxiety OA whopresented to [facility] ER complaining of Right upper and lower [...] she threw herself back to her chair. [facility] Medical History [facility] current use of amiodarone [...] (Auto) 70.9 H, Lymph % (Auto) 13.0 L,Fajardo % (Auto) 12.3 H, Eos % (Auto) [...] IMPRESSION: No acute intracranial abnormality. Reading Location: [facility] Active Medications Active Medications Active Medications: Current [...] - 2 drp 11/29/24 22:56 11/30/24 05:34 Glycerin/Hypromellose/Qla932 15 Ml Bottle EACH EYE 1 drp Q2H PRN PRN Administration DRY EYES Hydralazine HCl 10 mg 11/29/24 21:47 Hydralazine 20 Mg/Ml Vial IV Q8H PRN PRN SBP GREATER THAN 170 Protocol Hydralazine HCl 50 mg 11/30/24 08:00 12/01/24 06:11 Hydralazine 50 Mg Tablet PO 50 mg TID TERESSA Administration Protocol Sodium Chloride 250 mls @ 15 mls/hr 11/29/24 23:08 IV .[id number] PRN Additional IVPB Infusion Sodium Chloride 250 mls @ 15 mls/hr 11/29/24 23:08 IV .[id number] PRN Saline Flush Levothyroxine Sodium 50 mcg [...] applicable): CC: Dr. Michael Puga, DO~ Signed [facility] Work Phone: 1(435) 867-876108-01-2025 Consult note [facility] Medical Records Department [address] [place] [address] Consultation - Neurology 12/01/24 1243 MR#: [id number] Acct: [id number] Name: MICHAEL MEIER Rep #:[id number] 4 : 1940 84 From: Kyara Ponce MD PCP: Dr. Michael Puga, DO Status:AD M [facility] Location: [place] [address] Assessment and Plan: Neuro Assessment/Plan 84 F with a past medical history of essential hypertension, hyperlipidemia, hypothyroidism paroxysmal atrial fibrillation SSS; s/p PPM (2021), morbid obesity, JOSE, pulmonary hypertension, neuropathy;depression with anxiety OA whopresented to [facility] ER complaining of Right upperand lower extremity [...] hypertension, neuropathy;depression with anxiety OA whopresented to [facility] ER complaining of Right upperand lower extremity [...] she threw herself back to her chair. [facility] Medical History long term current use of amiodarone Right carotid bruit [...] (Auto) 70.9 H, Lymph % (Auto) 13.0 L,Fajardo % (Auto) 12.3 H, Eos % (Auto) [...] Puga, Performed By: Elzbieta Hampton and Student Brain CT 11/30/24 14:20 IMPRESSION: No acute intracranial abnormality. Reading Location: [facility] Active Medications Active Medications Active Medications: Current [...] - 2 drp 11/29/24 22:56 11/30/24 05:34 Glycerin/Hypromellose/Vxg165 15 Ml Bottle EACH EYE 1 drp Q2H PRN PRN Administration DRY EYES Hydralazine HCl 10 mg 11/29/24 21:47 Hydralazine 20 Mg/Ml Vial IV Q8H PRN PRN SBP GREATER THAN 170 Protocol Hydralazine HCl 50 mg 11/30/24 08:00 12/01/24 06:11 Hydralazine 50 Mg Tablet PO 50 mg TID TERESSA Administration Protocol Sodium Chloride 250 mls @ 15 mls/hr 11/29/24 23:08 IV .[id number] PRN Additional IVPB Infusion Sodium Chloride 250 mls @ 15 mls/hr 11/29/24 23:08 IV .[id number] PRN Saline Flush Levothyroxine Sodium 50 mcg [...] applicable): CC: Dr. Michael Puga, DO~ Signed [facility]07-31-2025 Progress note Author Jonny Vicente [facility] Note Date/Time November 30, 2024 5:22 pm [facility] Medical Records Department [address] [place] [address] Progress Note - Hospitalist 11/30/24 1626 MR#: [id number] Acct: [id number] Name: MICHAEL MEIER Rep #:[id number] 8 : 1940 84 From: Jonny pacheco MD PCP: Dr. Michael Puga, DO Status:AD M [facility] Location: [place] [address] Subjective Subjective No issues overnight, admitted with [...] (Auto) 72.4 H, Lymph % (Auto) 11.5 L,Fajardo % (Auto) 12.1 H, Eos % (Auto) [...] Clarity Clear, Urine pH 6.0, Ur Specific [place] 1.010, Urine Protein Negative, Urine Glucose (UA) [...] 73.5 H, Lymph % (Auto) 9.5 L, Fajardo % (Auto) 13.0 H, Eos % (Auto) [...] IMPRESSION: No acute intracranial abnormality. Reading Location: [facility] Brain CT 11/30/24 14:20 IMPRESSION: No acute intracranial abnormality. Reading Location: [facility] Physical Exam Narrative General: Alert, Oriented x3, [...] DVT: SCDs Charges/Coding Visit Charges Inpatient E&M: 61068 Subs Hosp L2 11/30/24 1722 <Electronically signed by Jonny Vicente MD> Cosigner Signature (if applicable): CC: ~ Signed [facility] Work Phone: 1(199) 375-920107-31-2025 Progress note [facility] Medical Records Department [address] [place] [address] Progress Note - Hospitalist 11/30/24 1626 MR#: [id number] Acct: [id number] Name: MICHAEL MEIER Rep #:[id number] 8 : 1940 84 From: Jonny pacheco MD PCP: Dr. Michael Puga, DO Status:AD Loli TAVAREZ Location: [place] [address] Subjective Subjective No issues overnight, admitted with [...] Std Deviation 46.8 H, RDW Coeff of Chnadu 14.4, Plt Count 201, MPV 10.2, Immature Gran % (Auto) 0.500, Neut% (Auto) 72.4 H, Lymph % (Auto) 11.5 L,Fajardo % (Auto) 12.1 H, Eos % (Auto) [...] Clarity Clear, Urine pH 6.0, Ur Specific [place] 1.010, Urine Protein Negative, Urine Glucose (UA) [...] 73.5 H, Lymph % (Auto) 9.5 L, Fajardo % (Auto) 13.0 H, Eos % (Auto) [...] IMPRESSION: No acute intracranial abnormality. Reading Location: [facility] Brain CT 11/30/24 14:20 IMPRESSION: No acute intracranial abnormality. Reading Location: [facility] Physical Exam Narrative General: Alert, Oriented x3, [...] DVT: SCDs Charges/Coding Visit Charges Inpatient E&M: 06803 Subs Hosp L2 11/30/24 1722 Cosigner Signature (if applicable): CC: ~ Signed [facility]07-31-2025 Radiology Diagnostic study note [facility] Imaging Services [address] [place] [address] Brain/Head without Contrast MR#: [id number] Acct: [id number] Name: MICHAEL MEIER Rep #: [id number] 0 : 1940 F 84 From: Jose D Saldana MD PCP: Dr. Michael Puga DO Status: AD M [facility] Study:Brain/Head without Contrast Date of Exa m: 11/30/24 Exam# [id number] Ordering Dr: Jonny Vicente MD PROCEDURE: BRAIN/HEAD [...] IMPRESSION: No acute intracranial abnormality. Reading Location: [facility] CC: Dr. Michael Puga DO; Dr. Jonny Vicente MD ~ Make Up Artist: Signed [facility]07-31-2025 History and physical note Author Tacho Goncalves [facility] Note Date/Time November 30, 2024 6:34 am [facility] Medical Records Department [address] [place] [address] H&P Exam - Hospitalist 11/29/242119 MR#: [id number] Acct: [id number] Name: MICHAEL MEIER Rep #:[id number] 4 : 1940 84 From: Tacho Vanegas DO PCP: Dr. Michael Puga, DO Status:AD M [facility] Location: [place] [address] HPI - General General Date of Admission: [...] daily and OA; onmeloxicam who presents to [facility] ER complaining of Right upper and lower [...] expected to be less than 2 midnights. [facility] Medical History long term current use of amiodarone Right carotid bruit [...] (Auto) 72.4 H, Lymph % (Auto) 11.5 L,Fajardo % (Auto) 12.1 H, Eos % (Auto) [...] Clarity Clear, Urine pH 6.0, Ur Specific [place] 1.010, Urine Protein Negative, Urine Glucose (UA) [...] IMPRESSION: No acute intracranial abnormality. Reading Location: [id number] Assessment & Plan Assessment/Plan (1) Hypertensive emergency [...] 85 minutes. Charges/Coding Visit Charges OBSV E&M: 53373 Observ/hosp same date L3 11/30/24 0634 <Electronically signed by Tacho Davis DO> Cosigner Signature (if applicable): CC: Dr. Tacho Davis DO; Dr. Michael Puga DO~ Signed [facility] Work Phone: 1(599) 886-277907-31-2025 History and physical note [facility] Medical Records Department [address] [place] [address] H&P Exam - Hospitalist 11/29/242119 MR#: [id number] Acct: [id number] Name: MICHAEL MEIER Rep #:[id number] 4 : 1940 84 From: Tacho Vanegas DO PCP: Dr. Michael Puga, DO Status:AD M [facility] - General General Date of Admission: [...] daily and OA; onmeloxicam who presents to [facility] ER complaining of Right upper and lower [...] expected to be less than 2 midnights. [facility] Medical History long term current use of amiodarone Right carotid bruit [...] (Auto) 72.4 H, Lymph % (Auto) 11.5 L,Fajardo % (Auto) 12.1 H, Eos % (Auto) [...] Clarity Clear, Urine pH 6.0, Ur Specific [place] 1.010, Urine Protein Negative, Urine Glucose (UA) [...] IMPRESSION: No acute intracranial abnormality. Reading Location: [id number] Assessment & Plan Assessment/Plan (1) Hypertensive emergency [...] 85 minutes. Charges/Coding Visit Charges OBSV E&M: 59500 Observ/hosp same date L3 11/30/24 0634 Cosigner Signature (if applicable): CC: Dr. Tacho Davis, ; Dr. Michael Puga, ~ Signed [facility]07-31-2025 Discharge summary Author Virgilbarb Tyler [facility] Note Date/Time November 30, 2024 1:01 am [facility] Medical Records Department [address] [place] [address] Emergency Department Summary 11/29/24 MR#: [id number] Acct: [id number] Name: MICHAEL MEIER Rep #:[id number] 8 : 1940 84 From: Virgil Saldivar PCP: Dr. Michael Puga, Status:AD M [facility] Location: [place] [address] HPI History of Present Illness Chief Complaint: [...] similar symptoms: No PFSH PFSH Medical History long term current use of amiodarone Right carotid bruit [...] 72.4 H Lymph % (Auto) 11.5 L Fajardo % (Auto) 12.1 H Eos % (Auto) [...] Clarity Clear Urine pH 6.0 Ur Specific [place] 1.010 Urine Protein Negative Urine Glucose (UA) [...] IMPRESSION: No acute intracranial abnormality. Reading Location: [facility] CT scan of the brain was obtained. [...] DO [Primary Care Provider] - Print Language: [place] Disposition Disposition: Acute Care [facility] What to do if you have Problems For any increased pain, shortness of breath, bleeding, nausea or vomiting, chestpain, or any unexpected problems, contact your Primary Care Provider. Call [facility] ([phone]) or report to the closest Emergency Room. Call 911 if necessary. 11/30/24 0101 <Electronically signed by Virgil Schwiger DO> Cosigner Signature (if applicable): CC: Dr. Michael Puga DO ~ Signed [facility] Work Phone: 1(804) 119-951107-31-2025 Discharge summary [facility] Medical Records Department [address] [place] [address] Emergency Department Summary 11/29/24 MR#: [id number] Acct: [id number] Name: MICHAEL MEIER Rep #:[id number] 8 : 1940 84 From: Virgil Saldivar PCP: Dr. Michael Puga DO Status:AD M [facility] Location: [place] [address] HPI History of Present Illness Chief Complaint: [...] similar symptoms: No PFSH PFSH Medical History long term current use of amiodarone Right carotid bruit [...] 72.4 H Lymph % (Auto) 11.5 L Fajardo % (Auto) 12.1 H Eos % (Auto) [...] Clarity Clear Urine pH 6.0 Ur Specific [place] 1.010 Urine Protein Negative Urine Glucose (UA) [...] IMPRESSION: No acute intracranial abnormality. Reading Location: [facility] CT scan of the brain was obtained. [...] DO [Primary Care Provider] - Print Language: [place] Disposition Disposition: Acute Care [facility] What to do if you have Problems For any increased pain, shortness of breath, bleeding, nausea or vomiting, chestpain, or any unexpected problems, contact your Primary Care Provider. Call [facility] ([phone]) or report tothe closest Emergency Room. Call 911 if necessary. 11/30/24 0101 Cosigner Signature (if applicable): CC: Dr. Michael Puga DO ~ Signed [facility]07-30-2025 Radiology Diagnostic study note [facility] Imaging Services [address] [place] [address] Brain/Head without Contrast MR#: [id number] Acct: [id number] Name: MICHAEL MEIER Rep #: [id number] 9 : 1940 F 84 From: Nelson Chávez MD PCP: Dr. Michael Puga DO Status: RE G ER Study:Brain/Head without Contrast Date of Exa m: 11/29/24 Exam# [id number] Ordering Dr: Virgil Tyler DO PROCEDURE: CT [...] volume loss and chronic microangiopathic changes. Absent nisqually ocular lenses. Intact skull base and calvarium. Clear sinuses and mastoids. CT/Brain/Head without Contrast IMPRESSION: No acute intracranial abnormality. Reading Location: [id number] CC: Dr. Virgil Tyler DO; Dr. Michael Puga DO ~ Make Up Artist: Signed [facility]07-28-2025 Telephone encounter Note* Telephone Encounter - Yvonne [...] Yvonne Gomez November 27, 2024 12:12 PM [facility]07-28-2025 Miscellaneous Notes* Telephone Encounter - Yvonne Leiva [...] 27, 2024 12:12 PM [facility] Telephone encounter Note * Telephone Encounter - Amanda Pratt RN - 11/13/2024 8:48 AM EDT Call placed to patient and notified of below with verbalized understanding. Amanda Pratt RN [facility]07-14-2025 Miscellaneous Notes* Telephone Encounter - Amanda Pratt [...] - 11/10/2024 2:41 PM EDT Kell with [facility] calls to let provider know that [...] able. Amanda Pratt RN documented [facility] Telephone encounter Note * Telephone Encounter - [...] evening daily Authorizing Provider: MICHAEL PUGA DO [facility]07-12-2025 Telephone encounter Note* Telephone Encounter - Sherry [...] Sherry Layne November 11, 2024 10:43 AM [facility]07-12-2025 Miscellaneous Notes* Telephone Encounter - Sherry Layne [...] 11, 2024 10:43 AM [facility] Telephone encounter Note * Telephone Encounter - Amanda Pratt RN - 11/10/2024 2:41 PM EDT Kell with [facility] calls to let provider know that [...] will respond once able. Amanda Pratt RN [facility]07-03-2025 Evaluation note* Diagnosis Onset Date Resolution Status [...] atrial fibrillation chronic November 02, 2024 9:16am [facility] Work Phone: 1(624) 180-846007-03-2025 Evaluation note* Diagnosis Onset Date Resolution Status [...] attack) December, suspected November 29, 2024 9:39pm [facility] Work Phone: 1(116) 632-859207-03-2025 Evaluation note* Diagnosis Onset Date Resolution Status Admit Date WELCH (dyspnea on exertion) acute November 02, 2024 9:16am long term current use of amiodarone acute November 02, [...] attack) December, suspected November 29, 2024 9:39pm [facility] Work Phone: 1([phone]) 588-651407-02-2025 Telephone encounter Note* Telephone Encounter - Marisol Cano LPN - 11/01/2024 12:48 PM EDT Called spoke with pt she states tomorrow has a appointment with heart doctor then few days with lung doctor she states if does not get answers from them she will make appointment then and come in. [facility]07-02-2025 Miscellaneous Notes* Telephone Encounter - Marisol [...] Michael for PT (she was referred by [facility]) and we've also seen her here inthe past for ortho/mobility issues. She's been reporting increased Shortness of Breath with minimalactivity which I definitely noticed today (I encouraged her to go to ER prn but she doesn't think it's necessary). She's also reporting increased low back pain (mostly with standing & walking). She has f/u appointments with her scene and lighting design lecturer & mechanical integrity engineer next month but I think she needs to see someone soon for the Shortness of Breath. I also think a spine/pain mgmt consult would be a good idea for the chronic/worsening low back pain. Thanks, Sarah Merchant PT documented [facility] Telephone encounter Note * Telephone Encounter - Key Portillo APRN.CNP - 11/01/2024 9:22 AM EDT Please see if patient is willing to make appointment due to Shortness of Breath as mentioned below. Thank you, Key Portillo APRN.PERFORMANCE IMPROVEMENT COORDINATOR [facility]07-02-2025 Telephone encounter Note* Telephone Encounter - Key Portillo APRN.CNP - 11/01/2024 9:22 AM EDT ----- Message from Sarah Merchant PT sent at 10/27/2024 6:59 PM EDT ----- Hi Dr Puga, We're seeing Michael for PT (she was referred by [facility]) and we've also seen her here inthe past for ortho/mobility issues. She's been reporting increased Shortness of Breath with minimalactivity which I definitely noticed today (I encouraged her to go to ER prn but she doesn't think it's necessary). She's also reporting increased low back pain (mostly with standing & walking). She has f/u appointments with her scene and lighting design lecturer & mechanical integrity engineer next month but I think she needs to see someone soon for the Shortness of Breath. I also think a spine/pain mgmt consult would be a good idea for the chronic/worsening low back pain. Thanks, Sarah Merchant PT [facility]07-01-2025 Radiology Diagnostic study note [facility] Imaging Services [address] [place], [place] [address] Chest PA and Lateral MR#: [id number] Acct: [id number] Name: MICHAEL MEIER Rep #: [id number] 9 : 1940 F 84 From: Chris Bradley MD PCP: Dr. Michael Puga DO Status: RE G CLI Study:Chest PA and Lateral Date of Exam: 10/31/24 Exam# [id number] Ordering Dr: Anabel Roberson PA PROCEDURE: CHEST [...] pulmonary process, no interval change Reading Location: [id number] CC: Dr. Michael Puga DO; NIDA Katz ~ Make Up Artist: Signed [facility]06-27-2025 NoteHNO ID: [id number] Author: SARAH MERCHANT PT Service: ? Author [...] back brace etc. she's never seen a retirement plan specialist, only ortho for hips. she also reports 10# weight gain over past 2 months due to steroids. has has f/u with mechanical integrity engineer end of October (which she may try to move up) scene and lighting design lecturer in mid October, PCP in December. she [...] Session Stop Time : 1331 Sarah Merchant [facility]06-27-2025 History of Present illness Narrative* [...] back brace etc. she's never seen a retirement plan specialist, only ortho for hips. she also reports 10# weight gain over past 2 months due to steroids. has has f/u with mechanical integrity engineer end of October (which she may try to move up) scene and lighting design lecturer in mid October, PCP in December. she [...] 1331 Sarah Merchant PT documented in [facility]06-[facility]25 Telephone encounter Note * Telephone Encounter - July Marcano RN - 10/26/2024 8:39 AM EDT Pt called and is notified of providers message and instructions. Pt voices understanding, she states she will add the Tylenol. July Marcano RN [facility]06-26-2025 Miscellaneous Notes* Telephone Encounter - July Marcano [...] advise. Tameka Marin RN documented in this encounterMary [facility]06-25-2025 Telephone encounter Note * Telephone Encounter - Michael Puga DO - 10/25/2024 10:09 PM EDT No this dose can't be increased. We can consider changing the meloxicam to an alternative such as Celebrex 100 mg twice a day with food as needed. Or she can add on 500 mg of Tylenol every 6 hours for pain Michael Puga DO [facility]06-25-2025 Telephone encounter Note* Telephone Encounter - [...] short term. Please advise. Tameka Marin RN [facility]06-09-2025 NoteHNO ID: [id number] Author: JOY SUN PTA Service: ? Author Type: Solar Designer Type: Progress Notes Filed: 10/09/2024 13:37 Note [...] 8 UE 8 lvl 2 6 minutes SHUTDOWN COORDINATOR in constant attendence assessing current status reviewing [...] Session Stop Time : 1328 [facility] History of Present illness Narrative* Joy Sun, [facility] - 10/09/2024 1:34 PM EDT Episode [...] 8 UE 8 lvl 2 6 minutes SHUTDOWN COORDINATOR in constant attendence assessing current status reviewingHEP [...] 1328 Joy Sun PTA documented in this encounterMary [facility]06-[facility]-2025 NoteHNO ID: [id number] Author: PJ BLEDSOE PT Service: ? Author [...] sets 9: standing at rollator [employer] dean slight march in place r to l to r x 5 then b heel raises x 5 x 3 sets 10: standing wt shifts [employer] at rollator wt shift r l lat [...] Session Stop Time : 1530 Pj Bledsoe [facility]06-02-2025 History of Present illness Narrative* Pj Bledsoe, [...] sets 9: standing at rollator [employer] dean slight march in place r to l to r x 5 then b heel raises x 5 x 3 sets 10: standing wt shifts [employer] at rollator wt shift r l lat [...] 1530 Pj Bledsoe PT documented in this encounterMary [facility] Telephone encounter Note * Telephone Encounter - Marisol Cano LPN - 09/28/2024 4:00 PM EDT Spoke with Kell gave information provided. She voices understanding. She will have pt call in for her appointment she does not know pts schedule. [facility]05-29-[facility] Miscellaneous Notes* Telephone Encounter - Marisol [...] 1 month ago. Thank you, Key Portillo APRN.PERFORMANCE IMPROVEMENT COORDINATOR * Telephone Encounter - Nadine Colon LPN - 09/28/2024 1:42 PM EDT Kell from [facility] calling to report patient tremor is [...] the office. Please advise documented in this encounterMary Rutan Hospital05-29-2025 NoteHNO ID: [id number] Author: SARAH MERCHANT, PT Service: ? Author [...] increase T-score by a minimum 5 points. Davilla in home exercise program. Patient will demonstrate [...] Planned: 12 Planned Treatment Interventions: Therapeutic exercise (49701), Neuromuscular re-education (22280), Therapeutic activities (45202), Self-mcc management (06450), Gait Training (47390), Patient/Family/Caregiver Education, General Conditioning PLAN FOR NEXT [...] Lives With: Self/Alone Assistance Available: [facility] Clay Roaster, PRN (currently getting HH Nsg, has friends [...] (within normal limits) 32 (more content not included)...[facility]05-29-2025 History of Present illness Narrative* Sarah Merchant, [...] increase T-score by a minimum 5 points. Davilla in home exercise program. Patient will demonstrate [...] Planned: 12 Planned Treatment Interventions: Therapeutic exercise (71573), Neuromuscular re- education (79416), Therapeutic activities (89126), Self-mcc management (91786), Gait Training (85887), Patient/Family/Caregiver Education, General Conditioning PLAN FOR NEXT [...] Lives With: Self/Alone Assistance Available: [facility] Clay Roaster, PRN (currently getting HH Nsg, has friends [...] 1459 Sarah Merchant PT documented in this encounterMary Rutan Hospital05-29-2025 Telephone encounter Note * Telephone Encounter - Key Portillo APRN.CNP - 09/28/2024 3:01 PM EDT Pt needs appointment to assess this. This was not mentioned in recent office visit 1 month ago. Thank you, Key Portillo APRN.CNP [facility]05-29-[facility] Telephone encounter Note* Telephone Encounter - Nadine Colon LPN - 09/28/2024 1:42 PM EDT Kell from [facility] calling to report patient tremor is [...] is out of the office. Please advise [facility]05-12-[facility] Telephone encounter Note* Telephone Encounter - [...] Gomez September 11, 2024 9:22 AM T [facility]05-12-2025 Miscellaneous Notes* Telephone Encounter - Delisa [...] 11, 2024 9:22 AM documented in this encounterMary [facility]an Hospital05-09-2025 Telephone encounter Note * Telephone Encounter - Michael Puga DO - 09/08/2024 5:06 PM EDT Noted Michael Puga DO [facility]05-09-[facility] Miscellaneous Notes* Telephone Encounter - Michael [...] for oxygen. Pt reports she was in [facility] about a yr ago with pneumonia, [...] guidelines. Please phone Jackelin with any questions: [phone] extension [phone] documented in this encounterMary Rutan Hospital05-09-2025 Telephone encounter Note * Telephone Encounter [...] not using the oxygen. Amanda Pratt, GLYNN [facility]05-09-2025 Telephone encounter Note* Telephone Encounter - Loli Adamson RN - 09/08/2024 1:32 PM EDT Phoned pt and explained what [employer] reported needed to be done per Medicare guidelines for her to qualify for oxygen. Pt reports she was in [facility] about a yr ago with pneumonia, [...] thinks she should do. Please advise pt. [facility]05-[facility] Telephone encounter Note* Telephone Encounter - Michael Puga DO - 09/08/2024 12:37 PM EDT Noted, is she willing to do this testing? Michael Puga DO [facility]05-09-[facility] Telephone encounter Note* Telephone Encounter - Loli Adamson RN - 09/08/2024 10:41 AM EDT Jackelin- Poorn[facility]- reports since pt has dx JOSE on CPAP, per medicare guidelines, pt would have to have sleep titration study to qualify for oxygen. States pt would not qualify for oxygen- with overnight pulse oximetry test per medicare guidelines. Please phone Jackelin with any questions: [phone] extension [phone] [facility] Telephone encounter Note* Telephone Encounter - Jacque Machuca MA - 09/08/2024 8:52 AM EDT Faxed Jacque Machuac MA [facility]05-09-[facility] Miscellaneous Notes* Telephone Encounter - Jacque [...] 09/07/2024 11:16 AM EDT Petra NOLASCO from [facility] calls and is asking status of [...] advise, Bhavna Arauz RN documented in this encounterMary Rutan Hospital05-09-2025 Telephone encounter Note * Telephone Encounter - Asia Rosales APRN.CNP - 09/08/2024 8:22 AM EDT It's in the outbox in my office. Asia Rosales APRN.CNP [facility]05-[facility] Telephone encounter Note* Telephone Encounter - Jacque Machuca MA - 09/08/2024 8:15 AM EDT Please print script Jacque Machuca MA [facility]05-08-20[facility] Telephone encounter Note* Telephone Encounter - Asia Rosales APRN.CNP - 09/07/2024 1:32 PM EDT I placed the order best I know how to. Please fax per below request. Asia Rosales APRN.CARMELINA [facility]05-08-2025 Telephone encounter Note* Telephone Encounter - Bhavna Arauz RN - 09/07/2024 11:16 AM EDT Petra NOLASCO from [facility] calls and is asking status of request. When order is placed, please fax orderto [employer] Please place order for nighttime pulsometry test and fax to [employer] Please review and advise, Bhavna Arauz RN [facility]05-07-[facility] Telephone encounter Note* Telephone Encounter - Julianna Cano LPN - 09/06/2024 1:12 PM EDT Pt. informed and would like to get the nighttime Oximetry. [facility] Telephone encounter Note* Telephone Encounter - Michael Puga DO - 09/05/2024 5:35 PM EDT Please clarify with more information What recommendation? Would need to have nighttime oximetry testing for me to order oxygen by insurance Michael Puga DO [facility] Telephone encounter Note* Telephone Encounter - Bhavna Arauz RN - 09/05/2024 11:46 AM EDT Patient calls and states that palliative care nurse had just visited patient. Palliative nurse had told patient that patient would benefit to have oxygen at night. Patient state that nurse had told patient to call office about this. Please review and advise, Bhavna Arauz RN [facility]04-30-2025 Instructions* Patient Instructions* Michael Puga DO [...] alive, yogurt, cottage cheese Relion meter at [facility] if insurance doesn't want to cover rx. [facility] Address: [address] [place] [address], [place] [address] documented in this encounterMary Rutan Hospital04-30-2025 NoteHNO ID: [id number] Author: MICHAEL PUGA DO Service: ? Author [...] ACETBLR/PROX FEM PROSTC AGRFT/ALGRFT Left 07/2016 [facility] CONDYLEANDPLATU MEDIALANDLAT COMPARTMENTS 11/15/2009 Knee replacement, total -Left - [facility] ARTHRP E CONDYLEANDPLATU MEDIALANDLAT COMPARTMENTS 12/30/2009 Right knee replaced COLONOSCOPY FLX DX W/COLLJ SPEC WHEN PFRMD 06/29/2017 Colonoscopy EGD 10/17/2020 EGD W/O [facility] SPEC VARICIES INJ 01/08/2022 EGD W/O [facility] SPEC VARICIES INJ 03/31/2024 [place] ESOPHAGOGASTRODUODENOSCOPY TRANSORAL [...] [Meperidine* Vomiting (more content not included)...[facility]04-30-2025 History of Present illness Narrative* Michael Puga, [...] COMPARTMENTS 11/15/2009 Knee replacement, total -Left - [facility] ARTHRP KNE CONDYLE&PLATU MEDIAL&LAT COMPARTMENTS 12/30/2009 Right knee replaced COLONOSCOPY FLX DX W/COLLJ SPEC WHEN PFRMD 06/29/2017 Colonoscopy EGD 10/17/2020 EGD W/O [facility] SPEC VARICIES INJ 01/08/2022 EGD W/O [facility] SPEC VARICIES INJ 03/31/2024 [place] ESOPHAGOGASTRODUODENOSCOPY TRANSORAL DIAGNOSTIC 11/29/2000 EGD ESOPHAGOGASTRODUODENOSCOPY TRANSORAL [...] dyspnea Follow up with Palliative care and Narcotics Investigator. 5. Obstructive lung disease (HCC) - ICD9: [...] dyspnea Follow up with Palliative care and Narcotics Investigator. Michael Puga DO Return if no improvement. Follow up with Michael Puga DO. To ER if develops chest pain, shortness of breath. Discussed risks, benefits, alternatives, and potential side effects of medications. Patient/Guardian expressed understanding and agreed with the plan. See patient instructions. Michael Puga DO [address] [place] [address] documented in this encounterMary [facility]an Hospital04-18-2025 Telephone encounter Note * Telephone Encounter - Asia Rosales APRN.CNP - 08/18/2024 2:37 PM EDT I saw her in the office yesterday 08/17 and these concerns were addressed. Asia Rosales APRN.CNP [facility] Work Phone: [phone]) 421-746504-18-2025 Miscellaneous Notes* Telephone Encounter - Asia Rosales APRN.CNP - 08/18/2024 2:37 PM EDT I saw her in the office yesterday 08/17 and these concerns were addressed. Asia Rosales APRN.CNP * Telephone Encounter - Loli Adamson RN - 08/16/2024 1:28 PM EDT Petra- - [facility]- reports she is seeing patient and [...] nurse phoned patient and scheduled appt with Lens Molding Equipment Operator for tomorrow to see if Lens Molding Equipment Operator can increase patient's paxil. documented in this encounterMary Rutan Hospital04-17-2025 NoteHNO ID: [id number] Author: ASIA ROSALES APRN.PERFORMANCE IMPROVEMENT COORDINATOR Service: ? Author Type: Nurse Practitioner Type: [...] ACETBLR/PROX FEM PROSTC AGRFT/ALGRFT Left 07/2016 [facility] CONDYLEANDPLATU MEDIALANDLAT COMPARTMENTS 11/15/2009 Knee replacement, total -Left - [facility] ARTHRP E CONDYLEANDPLATU MEDIALANDLAT COMPARTMENTS 12/30/2009 Right knee replaced COLONOSCOPY FLX DX W/COLLJ SPEC WHEN PFRMD 06/29/2017 Colonoscopy EGD 10/17/2020 EGD W/O [facility] SPEC VARICIES INJ 01/08/2022 EGD W/O B[facility] [...] mouth once (more content not included)...[facility]04-17-2025 History of Present illness Narrative* Asia Rosales APRN.PERFORMANCE IMPROVEMENT COORDINATOR - 08/17/2024 3:22 PM EDT Chief Complaint [...] COMPARTMENTS 11/15/2009 Knee replacement, total -Left - [facility] ARTHRP KNE CONDYLE&PLATU MEDIAL&LAT COMPARTMENTS 12/30/2009 Right knee replaced COLONOSCOPY FLX DX W/COLLJ SPEC WHEN PFRMD 06/29/2017 Colonoscopy EGD 10/17/2020 EGD W/O [facility] SPEC VARICIES INJ 01/08/2022 EGD W/O [facility] SPEC VARICIES INJ 03/31/2024 [place] ESOPHAGOGASTRODUODENOSCOPY TRANSORAL [...] Michael Puga that was previously scheduled Kristine hCavira Attending Note I have personally performed a face to face assessment of the patient and have reviewed the HARJIT noteand I agree. Other additions or changes: As edited Signature: Asia Rosales Date: 08/18/2024 Time: 8:26 AM documented in this encounterMary [facility]an Hospital04-16-2025 Telephone encounter Note * Telephone Encounter - Loli Adamson RN - 08/16/2024 1:28 PM ED[facility] reports she is seeing patient and [...] nurse phoned patient and scheduled appt with Lens Molding Equipment Operator for tomorrow to see if Lens Molding Equipment Operator can increase patient's paxil. [facility] Telephone encounter Note* Telephone Encounter - [...] to do anything. Protocols used: Medication Question [id number] [facility]03-07-2025 Miscellaneous Notes* Telephone Encounter - Amanda [...] to do anything. Protocols used: Medication Question [id number] documented in this encounterMary Rutan Hospital03-03-2025 NoteHNO ID: [id number] Author: PJ BLEDSOE, PT Service: ? Author Type: Physical Therapist Type: Progress Notes Filed: 07/03/2024 08:48 Note Text: 07/03/2024 [facility] PHYSICAL THERAPY [...] did not attend further PT. Pj Bledsoe, [facility]02-26-2025 Telephone encounter Note* Telephone Encounter - Renea Wallace MA - 06/28/2024 11:38 AM EST Printed telephone encounter with cover sheet & faxed to Dr. Edelmira [phone]. Advised on cover sheet to respond with mechanical integrity engineer's recommendations. Will wait for fax back. Renea Wallace MA [facility]02-26-2025 Miscellaneous Notes* Telephone Encounter - Renea Wallace MA - 06/28/2024 11:38 AM EST Printed telephone encounter with cover sheet & faxed to Dr. Hickey [phone]. Advised on cover sheet to respond with mechanical integrity engineer's recommendations. Will wait for fax back. Renea Wallace MA * Telephone Encounter - Michael Puga DO - 06/28/2024 10:37 AM EST Please call her mechanical integrity engineer office at [facility] and see if they are concerned [...] reports provider was going to check with [facility] about taking it since it can cause SOB. Please review and advise, Amanda Pratt RN documented in this encounterMary [facility]an Hospital02-26-2025 Telephone encounter Note * Telephone Encounter - Michael Puga DO - 06/28/2024 10:37 AM EST Please call her mechanical integrity engineer office at [facility] and see if they are concerned with her shortness of breath and respirator symptoms potentially being secondary to SE from Amiodarone and if any options to change this anti arrhythmic on their end? Michael Puga DO [facility]02-25-2025 NoteHNO ID: [id number] Author: MICHAEL PUGA DO Service: ? Author [...] and albuterol. She has been seen by Hogshead Mat Inspector as well as Dr. Hickey/Narcotics Investigator at [facility] for follow up after discharge home. [...] PFRMD 06/29/2017 Colonoscopy EGD 10/17/2020 EGD W/O [facility] SPEC VARICIES INJ 01/08/2022 EGD W/O [facility] SPEC VARICIES INJ 03/31/2024 [place] ESOPHAGOGASTRODUODENOSCOPY TRANSORAL [...] Intolerance Social (more content not included)...[facility]02-25-2025 History of Present illness Narrative* Michael Puga, [...] and albuterol. She has been seen by Hogshead Mat Inspector as well as Dr. Hickey/Narcotics Investigator at [facility] for follow up after discharge home. [...] CONDYLE&PLATU MEDIAL&LAT COMPARTMENTS 11/15/2009 Knee replacement, total -[facility] ARTHRP KNE CONDYLE&PLATU MEDIAL&LAT COMPARTMENTS 12/30/2009 Right knee replaced COLONOSCOPY FLX DX W/COLLJ SPEC WHEN PFRMD 06/29/2017 Colonoscopy EGD 10/17/2020 EGD W/O [facility] SPEC VARICIES INJ 01/08/2022 EGD W/O [facility] SPEC VARICIES INJ 03/31/2024 [place] ESOPHAGOGASTRODUODENOSCOPY TRANSORAL [...] I27.20 See above F/u with Pulm and Narcotics Investigator Multifactorial, recently diagnosed - NEBULIZER ACCESSORIES KIT - NEBULIZER 4. WELCH (dyspnea on exertion) - ICD9: 786.09, ICD10: R06.09 See above F/u with Pulm and Narcotics Investigator Multifactorial, CHF and obstructive lung disease have [...] See patient instructions. Michael Puga DO [address] [facility] [place] [address] documented in this encounterMary Rutan Hospital02-24-2025 Telephone encounter Note * Telephone Encounter [...] reports provider was going to check with [facility] about taking it since it can cause SOB. Please review and advise, Amanda Pratt RN [facility]02-04-2025 Telephone encounter Note* Telephone Encounter - Jacque Machuca MA - 06/06/2024 4:35 PM EST Pt informed, verbalized understanding Jacque Machuca MA [facility]02-04-2025 Miscellaneous Notes* Telephone Encounter - Jacque [...] Pt calls for lab results done at [facility] on 06/02/24. Results are scanned in the lab chart.. Constance Ervin LPN documented in this encounterMary [facility]an Hospital02-04-2025 Telephone encounter Note * Telephone Encounter - Michael Puga DO - 06/06/2024 4:28 PM EST Please inform patient that her BUN is slightly high, creatinine is normal. She needs to increase her fluid/water intake. Also her AST and ALT liver enzyme labs are slightly high- this CMP lab needs to be rechecked in 1 month Michael Puga DO [facility]02-04-2025 Telephone encounter Note* Telephone Encounter - Constance Ervin LPN - 06/06/2024 11:52 AM EST Pt calls for lab results done at [facility] on 06/02/24. Results are scanned in the lab chart.. Constance Ervin LPN [facility]01-29-2025 Telephone encounter Note* Telephone Encounter - Key Portillo APRN.PERFORMANCE IMPROVEMENT COORDINATOR - 05/31/2024 10:44 AM EST Noted. Thank you, Key Portillo APRN.PERFORMANCE IMPROVEMENT COORDINATOR [facility]01-29-2025 Miscellaneous Notes* Telephone Encounter - Key Portillo APRN.CARMELINA - 05/31/2024 10:44 AM EST Noted. Thank you, Key Portillo APRN.PERFORMANCE IMPROVEMENT COORDINATOR * Telephone Encounter - Amanda Pratt RN - 05/31/2024 10:07 AM EST Qing with [facility] calls in regards to below. CMP was not completed. Re-faxed ordered to [facility] lab and Qing will add a nurse visit for this week to collect specimen as soon as possible. Amanda Pratt RN * Telephone Encounter - Key Portillo APRN.CARMELINA - 05/31/2024 7:36 AM EST I don't see CMP results either. Can we call [facility] and confirm this was drawn. If not, have her get itdone. Thank you, Key Portillo APRN.PERFORMANCE IMPROVEMENT COORDINATOR * Telephone Encounter - Loli Adamson RN - 05/30/2024 8:26 AM EST Pt reports she had a CMP done at [facility] on 05/25/24 to check her kidneys and glucose. We received a BNP and CBC from [facility] under labs. Do not see a CMP. Patient asking Key to review and advise. documented in this encounterMary [facility]an Hospital01-29-2025 Telephone encounter Note * Telephone Encounter - Amanda Pratt RN - 05/31/2024 10:07 AM EST Qing with [facility] calls in regards to below. CMP was not completed. Re-faxed ordered to [facility] lab and Qing will add a nurse visit for this week to collect specimen as soon as possible. Amanda Pratt RN [facility]01-29-2025 Telephone encounter Note* Telephone Encounter - Key Portillo APRN.PERFORMANCE IMPROVEMENT COORDINATOR - 05/31/2024 7:36 AM EST I don't see CMP results either. Can we call [facility] and confirm this was drawn. If not, have her get itdone. Thank you, Key Portillo APRN.PERFORMANCE IMPROVEMENT COORDINATOR [facility]01-28-2025 Telephone encounter Note* Telephone Encounter - Loli Adamson RN - 05/30/2024 8:26 AM EST Pt reports she had a CMP done at [facility] on 05/25/24 to check her kidneys and glucose. We received a BNP and CBC from [facility] under labs. Do not see a CMP. Patient asking Key to review and advise. [facility]01-23-2025 Telephone encounter Note* Telephone Encounter - Marisol Cano LPN - 05/25/2024 10:15 AM EST Left detailed message on confidential voice mail. Also left out number for any questions. [facility]01-23-2025 Miscellaneous Notes* Telephone Encounter - Marisol [...] 05/11. I see from discharge instructions from [facility] that she was taking HCTZ at [...] mouth once daily. Authorizing Provider: KEY PORTILLO APRN.PERFORMANCE IMPROVEMENT COORDINATOR * Telephone Encounter - July Marcano RN - 05/25/2024 9:25 AM EST Bhavna MAKI CM with [facility] called in and reports Pt had been taken off her Hydrochlorothiazide perCardiology for a while, but the last time she was in the hospital she was put back on 12.5 mg. She states the Pt is going to need a script called in if she is to be taking them to [facility].I told her I didn't see the HCTZ [...] call and advise. documented in this encounterCleveland [id number] Telephone encounter Note * Telephone Encounter - Key Portillo APRN.CNP - 05/25/2024 10:00 AM EST I would like patient to take medication and then recheck BP. BP was WNL at appointment on 05/11. I see from discharge instructions from [facility] that she was taking HCTZ at [...] once daily. Authorizing Provider: KEY PORTILLO APRN.CNP [facility]01-23-2025 Telephone encounter Note* Telephone Encounter - July Marcano RN - 05/25/2024 9:25 AM EST Bhavna MAKI CM with [facility] called in and reports Pt had been taken off her Hydrochlorothiazide perCardiology for a while, but the last time she was in the hospital she was put back on 12.5 mg. She states the Pt is going to need a script called in if she is to be taking them to [facility].I told her I didn't see the HCTZ [...] labs this morning. Please call and advise. [facility]01-17-20[facility] Telephone encounter Note* Telephone Encounter - Julianna Cano LPN - 05/19/2024 2:43 PM EST Pt. informed. [facility]01-17-2025 Miscellaneous Notes* Telephone Encounter - Julianna [...] a good sign. Thank you, Key Portillo APRN.PERFORMANCE IMPROVEMENT COORDINATOR * Telephone Encounter - Chloe Castro LPN - 05/19/2024 12:21 PM EST Pt calling for results of lab work she had done in her home yesterday, Results are I Epic. Please advise pt. Chloe Castro LPN documented in this encounterMary Rutan Hospital01-17-2025 Telephone encounter Note * Telephone Encounter - Key Portillo APRN.PERFORMANCE IMPROVEMENT COORDINATOR - 05/19/2024 2:39 PM EST Please let patient know that lab work results look much much better! Kidney function is improving drastically. I want her to continue to stay off of the lasix and repeat labs 1 more time in 1 week. Without the lasix her BNP remains stable which is also a good sign. Thank you, Key Portillo APRN.PERFORMANCE IMPROVEMENT COORDINATOR [facility]01-17-2025 Telephone encounter Note* Telephone Encounter - Chloe Castro LPN - 05/19/2024 12:21 PM EST Pt calling for results of lab work she had done in her home yesterday, Results are I Epic. Please advise pt. Chloe Castro LPN [facility]01-16-2025 Telephone encounter Note* Telephone Encounter - Key Portillo APRN.CARMELINA - 05/18/2024 10:50 AM EST Perfect! Thank you. Key Portillo APRN.PERFORMANCE IMPROVEMENT COORDINATOR [facility]01-16-2025 Miscellaneous Notes* Telephone Encounter - Key Portillo APRN.CARMELINA - 05/18/2024 10:50 AM EST Perfect! Thank you. Key Portillo APRN.PERFORMANCE IMPROVEMENT COORDINATOR * Telephone Encounter - Tameka Marin RN - 05/18/2024 10:43 AM EST Bhavna with [facility] calling in and states she was able to draw all labs needed today. Tameka Marin, RN * Telephone Encounter - Key Portillo APRN.CARMELINA - 05/18/2024 10:42 AM EST Most important is CMP to have drawn if able. Agree with below. Pt needs to discontinue lasix all together. This was ordered by [facility] after recent admission for new onset CHF exacerbation. Initially ordered for 40 mg daily, I decreased to 20 mg daily after kidney function was so poor and told pt to repeat labs in 5 days with plan to discontinue all together if swelling and weight gain remained stable with decreased. Thank you, Key Portillo APRN.PERFORMANCE IMPROVEMENT COORDINATOR * Telephone Encounter - July Marcano RN - 05/18/2024 9:59 AM EST Bhavna MAKI [facility] called in and reports Pt [...] if she can. Pt will go to [place] and get it drawn in the [...] 05/17/2024 9:46 AM EST Phoned [facility] pharmacy\ with clarification on current meds. Spironolactone 25 mg daily was prescribed by the [facility] also hydralazine 25 mg was prescribed by Kristal [facility]. Lasix 20 mg was just prescribed by Key Portillo, then Lasix 40 mg was prescribed by [facility] May 02. Left message with Bhavna [facility] about above information. Please review and advise further. Marcie Rodriguez LPN * Telephone Encounter - Michael Puga DO - 05/17/2024 9:02 AM EST Please clarify with pharmacy and patient her current diuretic/BLOOD PRESSURE medications that she is picking up and taking * Telephone Encounter - Amanda Pratt RN - 05/16/2024 10:19 AM EST Bhavna with [facility] calls to report duplicate therapy between lasix and spironolactone and lasix and hydralazine. Bhavna is asking if provider wants all medications continued. Hydralazine and Spironolactone are on current medication list but prescription not sent to pharmacy. Please review and advise. Bhavna is requesting a call back at [phone]. Amanda Pratt RN documented in this encounterMary [facility] Telephone encounter Note * Telephone Encounter - Tameka Marin RN - 05/18/2024 10:43 AM EST Bhavna with [facility] calling in and states she was able to draw all labs needed today. Tameka Marin RN [facility]01-16-2025 Telephone encounter Note* Telephone Encounter - Key Portillo APRN.CARMELINA - 05/18/2024 10:42 AM EST Most important is CMP to have drawn if able. Agree with below. Pt needs to discontinue lasix all together. This was ordered by [facility] after recent admission for new onset CHF exacerbation. Initially ordered for 40 mg daily, I decreased to 20 mg daily after kidney function was so poor and told pt to repeat labs in 5 days with plan to discontinue all together if swelling and weight gain remained stable with decreased. Thank you, Key Portillo APRN.PERFORMANCE IMPROVEMENT COORDINATOR [facility]01-16-2025 Telephone encounter Note* Telephone Encounter - July Marcano RN - 05/18/2024 9:59 AM EST Bhavna MAKI [facility] called in and reports Pt isn't [...] what labs she was able to drawn. [facility]01-16-2025 Telephone encounter Note* Telephone Encounter - Sultana Catalan RN - 05/18/2024 9:50 AM EST Pt would like a call back as soon as possible after her labs are resulted. [facility]01-15-2025 Telephone encounter Note* Telephone Encounter - Michael Puga DO - 05/17/2024 8:46 PM EST Order placed for CMP Michael Puga DO [facility]01-15-2025 Telephone encounter Note* Telephone Encounter - [...] 5-7 days. Pended order for repeat CMP. [facility]01-15-2025 Telephone encounter Note* Telephone Encounter - Sultana Catalan RN - 05/17/2024 6:39 PM EST Pt returned the call and appt made with Dr. Puga for 520 pm on 06/21/24. Pt reminded to stop Lasix and make sure to get labs drawn in AM. [facility]01-15-2025 Telephone encounter Note* Telephone Encounter - Sultana Catalan RN - 05/17/2024 6:20 PM EST LM for pt to return the call as pt needs appt set up for around 06/22/24 which would be 6 wk f/u. Reinforce to pt to stop Lasix and get labs drawn in the AM. [facility]01-15-[facility] Telephone encounter Note* Telephone Encounter - Michael Puga DO - 05/17/2024 6:11 PM EST Agree with need for lab work Agree with need for follow up in Primary care but would recommend that this visit is after the visit in Cardiology Michael Puga DO [facility]01-15-2025 Telephone encounter Note* Telephone Encounter - [...] Verbalizes understanding. Pt is scheduled to see [facility] on 06/01/24. Per Alondra Portillo's OV note on 05/11/24, pt was to schedule a 6 wk follow up which is not scheduled. Does pt need to come to PCP office in addition to [facility] appt? Pt due for labwork as labs drawn on 05/11/24 showed significant decrease in kidney function. Asked ptto get it drawn in the morning if she can. Pt will go to [place] and get it drawn in the morning. [facility]01-15-2025 Telephone encounter Note* Telephone Encounter - Michael Puga DO - 05/17/2024 12:31 PM EST Please clarify what her edema of her legs is looking like? This was assessed by Key and not myself. I Don't want her to be on the spironolactone and the lasix. Recommend stopping the lasix if her edema is improved Michael Puga DO [facility]01-15-20[facility] Telephone encounter Note* Telephone Encounter - Marcie Rodriguez LPN - 05/17/2024 9:46 AM EST Phoned [facility] pharmacy\ with clarification on current meds. Spironolactone 25 mg daily was prescribed by the [facility] also hydralazine 25 mg was prescribed by Kristal Watkins [facility]. Lasix 20 mg was just prescribed by Key Portillo, then Lasix 40 mg was prescribed by [facility] May 02. Left message with Bhavna [facility] about above information. Please review and advise further. Marcie Rodriguez LPN [facility]01-15-2025 Telephone encounter Note* Telephone Encounter - Michael Puga DO - 05/17/2024 9:02 AM EST Please clarify with pharmacy and patient her current diuretic/BLOOD PRESSURE medications that she is picking up and taking [facility]01-14-2025 Telephone encounter Note* Telephone Encounter - Amanda Pratt RN - 05/16/2024 10:19 AM EST Bhavna with [facility] calls to report duplicate therapy between lasix and spironolactone and lasix and hydralazine. Bhavna is asking if provider wants all medications continued. Hydralazine and Spironolactone are on current medication list but prescription not sent to pharmacy. Please review and advise. Bhavna is requesting a call back at [phone]. Amanda Pratt RN [facility]01-10-2025 Telephone encounter Note* Telephone Encounter - Key Portillo APRN.CARMELINA - 05/12/2024 2:22 PM EST Agree with below. We are repeating BNP lab work in 5-7 days as well to check for this. Thank you, Key Portillo APRN.PERFORMANCE IMPROVEMENT COORDINATOR [facility]01-10-2025 Miscellaneous Notes* Telephone Encounter - Key Portillo APRN.CARMELINA - 05/12/2024 2:22 PM EST Agree with below. We are repeating BNP lab work in 5-7 days as well to check for this. Thank you, Key Portillo APRN.PERFORMANCE IMPROVEMENT COORDINATOR * Telephone Encounter - Sultana Catalan RN [...] e. Pt verbalizes understanding. documented in this encounterMary [facility]an Hospital01-10-2025 Telephone encounter Note * Telephone Encounter [...] at that vernell e. Pt verbalizes understanding. [facility]01-10-2025 Telephone encounter Note* Telephone Encounter - Jacque Machuca MA - 05/12/2024 1:04 PM EST Pt informed Jacque Machuca MA [facility]01-10-2025 Miscellaneous Notes* Telephone Encounter - Jacque [...] yesterday in appointment but nothing was at [facility] when she went. * Telephone Encounter [...] with decreasing lasix. Thank you, Key Portillo APRN.PERFORMANCE IMPROVEMENT COORDINATOR documented in this encounterMary [facility]an Hospital01-10-2025 Telephone encounter Note * Telephone Encounter [...] was identified. 05/12/2024 by Key Portillo APRN.CARMELINA [facility]01-10-2025 Telephone encounter Note* Telephone Encounter - Marisol Cano LPN - 05/12/2024 12:43 PM EST Spoke with pt gave information provided. Pt voices understanding. She states she spoke with you about some ativan yesterday in appointment but nothing was at [facility] when she went. [facility]01-10-2025 Telephone encounter Note* Telephone Encounter - [...] with decreasing lasix. Thank you, Key Portillo APRN.PERFORMANCE IMPROVEMENT COORDINATOR [facility]01-09-[facility]25 History of Present illness Narrative* Key Portillo APRN.CNP - 05/11/2024 1:00 PM EST Chief Complaint Patient presents with: Transition Of Care: Was i wfor chf flae was discharged on 05/02/24 HPI Michael Meier is a 84 year old female who presents here today for Above Complaints. Michael is an established patient of Dr. Edd DO. Concerns today... Hospital discharge -- [facility] hospital admission from 04/30-05/02 d/t hypoxia [...] COMPARTMENTS 11/15/2009 Knee replacement, total -Left - [facility] ARTHRP KNE CONDYLE&PLATU MEDIAL&LAT COMPARTMENTS 12/30/2009 Right knee replaced COLONOSCOPY FLX DX W/COLLJ SPEC WHEN PFRMD 06/29/2017 Colonoscopy EGD 10/17/2020 EGD W/O [facility] SPEC VARICIES INJ 01/08/2022 EGD W/O [facility] SPEC VARICIES INJ 03/31/2024 [place] ESOPHAGOGASTRODUODENOSCOPY TRANSORAL DIAGNOSTIC 11/29/2000 EGD ESOPHAGOGASTRODUODENOSCOPY TRANSORAL [...] Patient agreeable to treatment plan. Key Abrams APRN.PERFORMANCE IMPROVEMENT COORDINATOR [address] [place] [address] documented in this encounterMary [facility]an Hospital01-09-2025 NoteHNO ID: [id number] Author: KEY PORTILLO APRN.CNP Service: ? Author [...] Edd DO. Concerns today... Hospital discharge -- [facility] hospital admission from 04/30-05/02 d/t hypoxia [...] ACETBLR/PROX FEM PROSTC AGRFT/ALGRFT Left 07/2016 [facility]RP [facility] CONDYLEANDPLATU MEDIALANDLAT COMPARTMENTS 11/15/2009 Knee replacement, total -[facility] ARTHRP E CONDYLEANDPLATU MEDIALANDLAT COMPARTMENTS 12/30/2009 Right knee replaced COLONOSCOPY FLX DX W/COLLJ SPEC WHEN PFRMD 06/29/2017 Colonoscopy EGD 10/17/2020 EGD W/O [facility] SPEC VARICIES INJ 01/08/2022 EGD W/O [facility] SPEC VARICIES INJ 03/31/2024 [place] ESOPHAGOGASTRODUODENOSCOPY TRANSORAL [...] before use (more content not included)...[facility]01-06-2025 Telephone encounter Note* Telephone Encounter - Key Portillo APRN.CNP - 05/08/2024 10:47 AM EST Noted. Will address then. Thank you, Key Portillo APRN.PERFORMANCE IMPROVEMENT COORDINATOR [facility]01-06-2025 Miscellaneous Notes* Telephone Encounter - Key Portillo APRN.CNP - 05/08/2024 10:47 AM EST Noted. Will address then. Thank you, Key T Portillo, BAFFLE MOUNTER.PERFORMANCE IMPROVEMENT COORDINATOR * Telephone Encounter - Michael Puga DO - 05/08/2024 10:36 AM EST Will have her discuss with Key at office visit Michael Puga DO * Telephone Encounter - Amanda Pratt RN - 05/08/2024 8:59 AM EST Marifer with [facility] calls to let provider know that patient is having increasing pain with RLS especially at night. Marifer asking if provider would order medication. Patient not currently taking any medication for RLS. Patient previously scheduled for hospital follow up on 05/11/2024 with Key Portillo. Amanda Pratt RN documented in this encounterMary [facility] Hospital01-06-2025 Telephone encounter Note * Telephone Encounter - Michael Puga DO - 05/08/2024 10:36 AM EST Will have her discuss with Key at office visit Michael Puga DO [facility]01-06-2025 Telephone encounter Note* Telephone Encounter - Amanda Pratt RN - 05/08/2024 8:59 AM EST Marifer with [facility] calls to let provider know that patient is having increasing pain with RLS especially at night. Marifer asking if provider would order medication. Patient not currently taking any medication for RLS. Patient previously scheduled for hospital follow up on 05/11/2024 with Key Portillo. Amanda Pratt RN [facility]01-03-2025 Telephone encounter Note* Telephone Encounter - Michael uPga DO - 05/05/2024 4:40 PM EST Noted Michael uPga DO [facility]01-03-2025 Miscellaneous Notes* Telephone Encounter - Michael Puga DO - 05/05/2024 4:40 PM EST Noted Michael Puga DO * Telephone Encounter - July Marcano RN - 05/05/2024 3:58 PM EST Sergio PT with [facility] called in and reports they will be seeing Pt twice a week for 3 weeks for functional mobility training. documented in this encounterMary [facility]an Hospital01-03-2025 Telephone encounter Note * Telephone Encounter - July Marcano RN - 05/05/2024 3:58 PM EST Sergio PT with [facility] called in and reports they will be seeing Pt twice a week for 3 weeks for functional mobility training. [facility]01-03-2025 Telephone encounter Note* Telephone Encounter - Jacque Machuca MA - 05/05/2024 8:54 AM EST Suha Machuca MA [facility]01-03-2025 Miscellaneous Notes* Telephone Encounter - Jacque Machuca MA - 05/05/2024 8:54 AM EST Suha Machuca MA * Telephone Encounter - Michael Puga DO - 05/05/2024 8:36 AM EST Ok with orders Michael Puga DO * Telephone Encounter - Aly Tolentino LPN - 05/04/2024 2:24 PM EST Suha from [facility] calling with plan of care. Only need to call her back if pcp not agreeable with orders. They will be seeing pt 1x wk for 1 wk then 2xs wk for 3 wks then 1x wk for 1 wk for disease and medication education. Aly Tolentino LPN documented in this encounterMary [facility]an Hospital01-03-2025 Telephone encounter Note * Telephone Encounter - Michael Puga DO - 05/05/2024 8:36 AM EST Ok with orders Michael Puga DO [facility]01-02-2025 NoteHNO ID: [id number] Author: Loli ADAMSON RN Service: ? Author Type: Registered Nurse Type: Progress Notes Filed: 05/04/2024 14:41 Note Text: TRANSITION CARE MANAGEMENT (TCM) INITIAL CONTACT Cellular Biologist Outreach Provider Action/FYI: Pt reports [facility] is going to be visiting pt for PT OT SN Initial contact with patient post discharge, spoke to patient. Patient identified by name and . TRANSITION CARE MANAGEMENT INITIAL OUTREACH DOCUMENTATION: 05/04/2024 Date of Outreach: Outreach Attempt 1: Contact Made Date of Discharge 05/02/2024 SUMMARY: -Pt discharged from [facility] on 05-02-24. -Admitted for: CHF Do [...] records from recent hospitalization: [facility] History of Present illness Narrative* Loli Adamson RN - 05/04/2024 2:31 PM EST TRANSITION CARE MANAGEMENT (TCM) INITIAL CONTACT Cellular Biologist Outreach Provider Action/FYI: Pt reports [facility] is going to be visiting pt for PT OT SN Initial contact with patient post discharge, spoke to patient. Patient identified by name and . TRANSITION CARE MANAGEMENT INITIAL OUTREACH DOCUMENTATION: 05/04/2024 Date of Outreach: Outreach Attempt 1: Contact Made Date of Discharge 05/02/2024 SUMMARY: -Pt discharged from [facility] on 05-02-24. -Admitted for: CHF Do [...] recent hospitalization: Care Everywhere documented in this encounterMary [facility] Hospital01-02-2025 Telephone encounter Note * Telephone Encounter - Aly Tolentino LPN - 05/04/2024 2:24 PM EST Suha from [facility] calling with plan of care. Only need to call her back if pcp not agreeable with orders. They will be seeing pt 1x wk for 1 wk then 2xs wk for 3 wks then 1x wk for 1 wk for disease and medication education. Aly Tolentino LPN [facility]01-02-2025 Telephone encounter Note* Telephone Encounter - [...] 08/30/2024 Please advise. Thank you. Milvia Howard. [facility]01-02-2025 Miscellaneous Notes* Telephone Encounter - Milvia [...] Thank you. Milvia Howard. documented in this encounterMary [facility]an Hospital01-02-2025 NotePatient Outreach (FAMPWS) MICHAEL MEIER ([id number]) 1940 F Date Time Provider Department 05/04/24 MICHAEL PUGA During your visit today, we recorded the following information about you: Loli Adamson RN 05/04/2024 2:41 PM Signed TRANSITION CARE MANAGEMENT (TCM) INITIAL CONTACT Cellular Biologist Outreach Provider Action/FYI: Pt reports [facility] is going to be visiting pt for PT OT SN Initial contact with patient post discharge, spoke to patient. Patient identified by name and . TRANSITION CARE MANAGEMENT INITIAL OUTREACH DOCUMENTATION: 05/04/2024 Date of Outreach: Outreach Attempt 1: Contact Made Date of Discharge 05/02/2024 SUMMARY: -Pt discharged from [facility] on 05-02-24. -Admitted for: CHF Do [...] Date Reviewed: 04/10/2024 Reviewed by: Sharon Jarrett APRN.PERFORMANCE IMPROVEMENT COORDINATOR - Fully Assessed Reason for Visit: Transition [...] SOLAR LENGINES///DYSCHR (more content not included)...[facility] 05-02-2024 [facility]12-30-2024 Telephone encounter Note* Telephone Encounter - Julianna Cano LPN - 05/01/2024 4:41 PM EST Manny SWANN informed message left on . [facility]12-30-2024 Miscellaneous Notes* Telephone Encounter - Julianna Moreno LPN - 05/01/2024 4:41 PM EST Manny SWANN informed message left on VM. * Telephone Encounter - Nunu Gonzalez PA-C - 05/01/2024 4:03 PM EST Verbal order okay for PCP to follow for HH. Nunu Gonzalez PA-C * Telephone Encounter - Constance Ervin LPN - 05/01/2024 2:19 PM EST Larissa with [facility] calls to report pt is currently in the hospital with heart failure exacerbation.Pt will most likely be discharged 05/03/24. Pt has HH orders for PT, OT, and Assisted. Larissa is requesting VO that pcp will follow pt while in HH. Call Larissa with VO from pcp. Constance Ervin LPN documented in this encounterMary Rutan Hospital12-30-2024 Telephone encounter Note * Telephone Encounter - Nunu Gonzalez PA-C - 05/01/2024 4:03 PM EST Verbal order okay for PCP to follow for HH. Nunu Gonzalez PA-C [facility]12-30-2024 Telephone encounter Note* Telephone Encounter - Constance Ervin LPN - 05/01/2024 2:19 PM EST Larissa with [facility] calls to report pt is currently in the hospital with heart failure exacerbation.Pt will most likely be discharged 05/03/24. Pt has HH orders for PT, OT, and Assisted. Larissa is requesting VO that pcp will follow pt while in . Call Larissa with VO from pcp. Constance Ervin LPN [facility]12-29-2024 Evaluation note* Diagnosis Onset Date Resolution Status Admit Date CHF (congestive heart failure) acute April 30, 2 024 9:27am Hypoxia acute April 30, 2024 9:27am History of permanent cardiac pacemaker placement June 09, 2021 chronic June 01, 2024 12:59pm Paroxysmal atrial fibrillation chronic June 01 12:59pm Sick sinus syndrome chronic 2024 12:59pm long term current use of amiodarone acute June 01 1:19pm Pulmonary hypertension acute Ja nuary 2024 1:19pm Right carotid bruit acute 2024 1:19pm Essential (primary) hypertension chronic June 01 1:19pm History of permanent cardiac pacemaker placement June 09, 2021 chronic June 01, 2024 1:19pm Paroxysmal atrial fibrillation chronic June 01 1:19pm [facility] Work Phone: [phone]) 519-693912-23-2024 Telephone encounter Note* Telephone Encounter - Aly [...] 04/27/24 with Key Portillo. Aly Tolentino LPN [facility]12-23-2024 Miscellaneous Notes* Telephone Encounter - Aly [...] Portillo. Aly Tolentino LPN documented in this encounterMary Rutan Hospital12-19-2024 NoteHNO ID: [id number] Author: SARAH MERCHANT, PT Service: ? Author [...] L2x12' seat 8 2: shuttle leg press [id number]', SL [id number], [id number] - increased thigh pain 3: *standing back [...] Session Stop Time : 1335 Sarah Merchant [facility]12-19-2024 History of Present illness Narrative* Sarah Merchant, [...] L2x12' seat 8 2: shuttle leg press [id number]', SL [id number], [id number] - increased thigh pain 3: *standing back [...] 1335 Sarah Merchant PT documented in this encounterMary Rutan Hospital12-17-2024 NoteHNO ID: [id number] Author: SARAH MERCHANT PT Service: ? Author [...] for Episode of Care: created on 11/15/23 [place] in home exercise program. Patient will demonstrate [...] Patient to be seen for Therapeutic exercise (09085), Neuromuscular re-education (09534), Therapeutic activities (69293), Self-mcc management (57259), Gait Training (20500), Patient/Family/Caregiver Education, General Conditioning PLAN FOR NEXT [...] facilitated with verbal a (more content not included)...[facility]12-17-2024 History of Present illness Narrative* Sarah Merchant, [...] for Episode of Care: created on 11/15/23 [place] in home exercise program. Patient will demonstrate [...] Patient to be seen for Therapeutic exercise (27677), Neuromuscular re-education (53812), Therapeutic activities (43086), Self-mcc management (71950), Gait Training (79542), Patient/Family/Caregiver Education, General Conditioning PLAN FOR NEXT [...] 1420 Sarah Merchant, PT documented in this encounterMary Rutan Hospital12-09-2024 History of Present illness Narrative* Sharon Jarrett APRN.PERFORMANCE IMPROVEMENT COORDINATOR - 04/10/2024 4:00 PM EST FOLLOW UP VISIT - ENDOSCOPY Michael Meier 1940 [id number] REFERRING PHYSICIAN: No referring provider defined for [...] improvement. Sharon Jarrett APRN.CARMELINA documented in this encounterMary Rutan Hospital12-09-2024 NoteHNO ID: [id number] Author: SHARON JARRETT APRN.CARMELINA Service: ? Author Type: Nurse Practitioner Type: Progress Notes Filed: 04/10/2024 16:04 Note Text: FOLLOW UP VISIT - ENDOSCOPY Michael Meier 1940 [id number] REFERRING PHYSICIAN: No referring provider defined for [...] worsening/no improvement. Sharon Jarrett APRN.[facility]11-29-2024 History and physical note* Raymundo De León MD - 03/31/2024 11:15 AM EST HISTORY AND PHYSICAL Michael Meier : 1940 REFERRING PHYSICIAN: Michael Puga [address] [place] [address] CHIEF COMPLAINT: Patient presents with: Consult: EGD [...] Dr. De León at [facility] Sedation:Midazolam 4 mg IV, Fentanyl 100 [...] COMPARTMENTS 11/15/2009 Knee replacement, total -Left - [facility] ARTHRP KNE CONDYLE&PLATU MEDIAL&LAT COMPARTMENTS 12/30/2009 [...] edited and updated as necessary. Sharon Jarrett APRN.PERFORMANCE IMPROVEMENT COORDINATOR UPDATED HISTORY AND PHYSICAL EXAMINATION SERVICE DATE: 03/31/2024 SERVICE TIME: 10:46 AM SENSITIVE EXAMINATION CONSENT: The sensitive examination was discussed with the Patient or Patient's Authorized Coupon Clerk. Asapplicable, any other physician, advance practice provider, medical student, or other health professional student that will be observing or involved in the sensitive examination for educational or training purposes was discussed with the Patient or Authorized Coupon Clerk. The Patient or Authorized Coupon Clerk has agreed to proceed with the sensitive [...] DATE: March 31, 2024 TIME: 10:46 AM [facility]11-29-20[facility] History and physical note* Raymundo De León MD - 03/31/2024 11:15 AM EST HISTORY AND PHYSICAL Michael Meier : 1940 REFERRING PHYSICIAN: Michael Puga [address] [facility] [address] CHIEF COMPLAINT: Patient presents with: Consult: EGD [...] Dr. De León at [facility] Sedation:Midazolam 4 mg IV, Fentanyl 100 [...] CONDYLE&PLATU MEDIAL&LAT COMPARTMENTS 11/15/2009 Knee replacement, total -[facility] ARTHRP KNE CONDYLE&PLATU MEDIAL&LAT COMPARTMENTS 12/30/2009 Right knee replaced COLONOSCOPY FLX DX W/COLLJ SPEC WHEN PFRMD 06/29/2017 Colonoscopy EGD 10/17/2020 EGD W/O [facility] SPEC VARICIES INJ 01/08/2022 ESOPHAGOGASTRODUODENOSCOPY TRANSORAL DIAGNOSTIC [...] discussed with the Patient or Patient's Authorized Coupon Clerk. Asapplicable, any other physician, advance practice provider, medical student, or other health professional student that will be observing or involved in the sensitive examination for educational or training purposes was discussed with the Patient or Authorized Coupon Clerk. The Patient or Authorized Coupon Clerk has agreed to proceed with the sensitive [...] 2024 TIME: 10:46 AM documented in this encounterMary Rutan Hospital11-25-2024 Instructions* Patient Instructions* Mary Foster APRN.CNP - 03/27/2024 2:22 PM EST Images from the original note were not included. [facility] PATIENT PREOPERATIVE INSTRUCTIONS Raymundo De León MD has scheduled you for your procedure at this surgery center: [facility]: [phone] -- [address] [address]. Please read below carefully for your personalized [...] office. If you are currently using a [id number]-[id number] injectable or oral medication for diabetes or [...] Procedures: - YOU MUST HAVE A RESPONSIBLE FOREIGN LANGUAGES DEPARTMENT CHAIR TAKE YOU HOME. A CLINICAL AUDITOR OR HEEL COVERER CANNOT BE MADE A RESPONSIBLE FOREIGN LANGUAGES DEPARTMENT CHAIR. - We recommend that a responsible person [...] Advance Directive, please fax a copy to [phone] or email to for it to be [...] day. Mary Foster APRN.CNP documented in this encounterMary [facility] History and physical note * Mary [...] Assessment: c/w statin Cardiac resynchronization therapy pacemaker (SURGICAL SERVICES COORDINATOR-P) in place Assessment: s/p 10/2021 ICD [...] large neck Non-male patient STOP-Bang Score: 2 [id number] Score: Age: >=75 Sex: female CHF history: No Hypertension history: Yes Stroke/TIA/thromboembolism history: Yes Vascular disease history: No Diabetes history: No [id number] Score: 6 ARISCAT Score: Age: >80 Preoperative [...] female who is scheduled for colonoscopy at [facility] of Dr. Raymundo De León for consultation. My final recommendation will be communicated backto the requesting physician by way of shared medical record or letter. Subjective The patient has the following: COVID-19 Immunization Status Overdue - Covid-19 Vaccine () Overdue since 01/02/2024 10/14/2023 Postponed until 10/13/2024 by Marisol Cano LPN (Declined at this time) 04/05/2023 Imm Admin: COVID-19 vaccine, age 12+ yr ([employer] [facility]) 06/04/2022 Postponed until 06/04/2023 by Marisol [...] Dr. De León at [facility] Sedation:Midazolam 4 mg IV, Fentanyl 100 [...] CAD, CHF, congenital heart defect, DVT/PE, recent OK, open heart surgery and valve surgery. GI: Positive for: GERD (on rx) Negative for: abdominal pain, dysphagia, hepatitis, irritable bowel syndrome, inflammatory bowel disease, liver disease, nausea, vomiting and ETOH >2 drinks/day. : No history of dysuria, frequency or incontinence, stones or chronic kidney disease. No difficulty urinating, nocturia > 1 time per night or hematuria. DATACAP DEVELOPER: Negative for abnormal vaginal bleeding, abnormal vaginal [...] CONDYLE&PLATU MEDIAL&LAT COMPARTMENTS 11/15/2009 Knee replacement, total [facility] ARTHRP KNE CONDYLE&PLATU MEDIAL&LAT COMPARTMENTS 12/30/2009 Right knee replaced COLONOSCOPY FLX DX W/COLLJ SPEC WHEN PFRMD 06/29/2017 Colonoscopy EGD 10/17/2020 EGD W/O [facility] SPEC VARICIES INJ 01/08/2022 ESOPHAGOGASTRODUODENOSCOPY TRANSORAL DIAGNOSTIC [...] 8760 hour(s)). Recent Results (from the past 90693 hour(s)) ECHO Collection Time: 06/08/22 1:56 PM [...] 27, 2024 TIME: 2:20 PM PAGER/CONTACT #: [facility] History and physical note* Mary Foster [...] Assessment: c/w statin Cardiac resynchronization therapy pacemaker (SURGICAL SERVICES COORDINATOR-P) in place Assessment: s/p 10/2021 ICD [...] large neck Non-male patient STOP-Bang Score: 2 [id number] Score: Age: >=75 Sex: female CHF history: No Hypertension history: Yes Stroke/TIA/thromboembolism history: Yes Vascular disease history: No Diabetes history: No [id number] Score: 6 ARISCAT Score: Age: >80 Preoperative [...] female who is scheduled for colonoscopy at [facility] of Dr. Raymundo De León for [...] Imm Admin: COVID-19 vaccine, age 12+ yr ([employer] [facility]) 06/04/2022 Postponed until 06/04/2023 by Marisol Cano LPN (Declined at this time) Only the first 3 history entries have been loaded, but more history exists. CHIEF COMPLAINT: Pre-op exam HPI: Michael Meier is a 83 year old seen for PAC due to scheduled above surgery because of epigastric pain. 03/13/2024, Sharon Jarrett, PERFORMANCE IMPROVEMENT COORDINATOR HPI: Michael is a 83 year old female referred for endoscopy. Michael notes increasing in epigastric pain. Michael notes occasional heartburn. -Notes belching even without eating Epigastric pain triggered by coffee, lettuce, broccoli, tomato based, citrus fruits -gets relief with Carafate PRN -not currently on PPI Michael denies dysphagia. iMchael denies a history of ulcers/ peptic ulcer [...] Dr. De León at [facility] Sedation:Midazolam 4 mg IV, Fentanyl 100 [...] CAD, CHF, congenital heart defect, DVT/PE, recent OK, open heart surgery and valve surgery. GI: Positive for: GERD (on rx) Negative for: abdominal pain, dysphagia, hepatitis, irritable bowel syndrome, inflammatory bowel disease, liver disease, nausea, vomiting and ETOH >2 drinks/day. : No history of dysuria, frequency or incontinence, stones or chronic kidney disease. No difficulty urinating, nocturia > 1 time per night or hematuria. DATACAP DEVELOPER: Negative for abnormal vaginal bleeding, abnormal vaginal [...] COMPARTMENTS 11/15/2009 Knee replacement, total -Left - [facility] ARTHRP KNE CONDYLE&PLATU MEDIAL&LAT COMPARTMENTS 12/30/2009 [...] 8760 hour(s)). Recent Results (from the past 04001 hour(s)) ECHO Collection Time: 06/08/22 1:56 PM [...] 2:20 PM PAGER/CONTACT #: documented in this encounterMary [facility] Hospital11-21-2024 NoteHNO ID: [id number] Author: SARAH MERCHANT PT Service: ? Author [...] deficits 2: discussed progress/lack of, goals/expectations for fire patroller Intervention: Patient was provided supervision, independence during [...] Session Stop Time : 1341 Sarah Merchant [facility]11-21-2024 History of Present illness Narrative* Sarah Merchant, [...] deficits 2: discussed progress/lack of, goals/expectations for fire patroller Intervention: Patient was provided supervision, independence during [...] 1341 Sarah Merchant PT documented in this encounterMary [facility] Hospital11-18-2024 NoteHNO ID: [id number] Author: SARAH MERCHANT PT Service: ? Author [...] on 11/15/23 through 01/14/24, extended thru 04/17/24 Davilla in home exercise program. Patient will demonstrate [...] Patient to be seen for Therapeutic exercise (35343), Neuromuscular re-education (79657), Therapeutic activities (98830), Self-mcc management (21401), Gait Training (97328), Patient/Family/Caregiver Education, General Conditioning PLAN FOR NEXT [...] L3x11' seat 8 2: shuttle leg press 2pttqaFv8', SL 4bandsR/L 20xea (increased difficulty L vs [...] from mat table wi (more content not included)...[facility]11-18-2024 History of Present illness Narrative* Sarah Merchant, [...] on 11/15/23 through 01/14/24, extended thru 04/17/24 Davilla in home exercise program. Patient will demonstrate [...] Patient to be seen for Therapeutic exercise (18180), Neuromuscular re-education (72455), Therapeutic activities (66967), Self-mcc management (83281), Gait Training (16014), Patient/Family/Caregiver Education, General Conditioning PLAN FOR NEXT [...] Deviations Left Lower Extremity: Trendelenburg General Deviations/Observations: Jennifre decreased, Step length decreased, Non- functional gait speed Balance Static Standing Balance Comments: Fair/Fair- (increased difficulty with posterior perturbations) TREATMENT: Therapeutic Exercise: 1: Nu-step L3x11' seat 8 2: shuttle leg press 0xshscKs7', SL 4bandsR/L 20xea (increased difficulty L vs [...] objective for details, discussed progress/deficits, plans/options for fire patroller Intervention: Patient was educated in proper exercise [...] Neuromuscular Re-Education: 1: standing wt-shifts ant/post with DIRECTOR STRATEGY (tendency for posterior LOB) 2: static stance [...] 1502 Sarah Merchant PT documented in this encounterMary [facility]11-14-2024 NoteHNO ID: [id number] Author: SARAH MERCHANT, PT Service: ? Author [...] wt-shifted R/L 10xea 6: shuttle leg press 7inqfxDk6', SL 5bandsR/L 20x (increased difficulty R vs L) 7: shuttle calf raises 6dhqptS51b 8: supine hip ABd with orange TB [...] Session Stop Time : 1329 Sarah Shonda [facility]11-14-2024 History of Present illness Narrative* [...] wt-shifted R/L 10xea 6: shuttle leg press 5ggxzdHx1', SL 5bandsR/L 20x (increased difficulty R vs L) 7: shuttle calf raises 9jthvvB37b 8: supine hip ABd with orange TB [...] 1329 Sarah Merchant PT documented in this encounterMary [facility] Hospital11-12-2024 NoteHNO ID: [id number] Author: JOY SUN PTA Service: ? Author Type: Solar Designer Type: Progress Notes Filed: 03/14/2024 10:47 Note [...] Nustep seat 8 lvl 2 10 minutes SHUTDOWN COORDINATOR in constant attendence monitoring technique and reviewing HEP 2: shuttle leg press 8sejbfSy1', SL 4bands 20x 3: shuttle calf raises [...] Session Stop Time : 1045 Joy Sun [facility]11-12-2024 History of Present illness Narrative* Joy Sun [...] Nustep seat 8 lvl 2 10 minutes SHUTDOWN COORDINATOR in constant attendence monitoring technique and reviewing HEP 2: shuttle leg press 4ztbvpNa0', SL 4bands 20x 3: shuttle calf raises [...] 1045 Joy Sun PTA documented in this encounterMary [facility]11-11-2024 Telephone encounter Note * Telephone Encounter - Joshua Mcdowell - 03/13/2024 2:43 PM EST 03-31-2024 EGD Elizabeth Joshua Mcdowell [facility]11-11-[facility]24 Miscellaneous Notes* Telephone Encounter - Joshua Mcdowell - 03/13/2024 2:43 PM EST 03-31-2024 EGD Elizabeth Joshua Mcdowell documented in this encounterMary [facility] Hospital11-11-2024 History of Present illness Narrative* Sharon Jarrett APRN.CARMELINA - 03/13/2024 2:30 PM EST HISTORY AND PHYSICAL Michael Meier : 1940 REFERRING PHYSICIAN: Michael Puga [address] [facility] [address] CHIEF COMPLAINT: Patient presents with: Consult: EGD [...] Dr. De León at [facility] Sedation:Midazolam 4 mg IV, Fentanyl 100 [...] COMPARTMENTS 11/15/2009 Knee replacement, total -Left - [facility] ARTHRP KNE CONDYLE&PLATU MEDIAL&LAT COMPARTMENTS 12/30/2009 Right knee replaced COLONOSCOPY FLX DX W/COLLJ SPEC WHEN PFRMD 06/29/2017 Colonoscopy EGD 10/17/2020 EGD W/O [facility] SPEC VARICIES INJ 01/08/2022 ESOPHAGOGASTRODUODENOSCOPY TRANSORAL DIAGNOSTIC [...] necessary. Sharon Jarrett APRN.CARMELINA documented in this encounterMary [facility] Hospital11-11-2024 NoteHNO ID: [id number] Author: SHARON JARRETT APRN.CARMELINA Service: ? Author Type: Nurse Practitioner Type: Progress Notes Filed: 03/13/2024 14:47 Note Text: HISTORY AND PHYSICAL Michael Meier : 1940 REFERRING PHYSICIAN: Michael Puga [address] [facility] [address] CHIEF COMPLAINT: Patient presents with: Consult: EGD [...] Last EGD was 01/[address] De Lóen at [facility] Sedation:Midazolam 4 mg IV, Fentanyl 100 [...] ACETBLR/PROX FEM PROSTC AGRFT/ALGRFT Left 07/2016 ARTHRP [facility] CONDYLEANDPLATU MEDIALANDLAT COMPARTMENTS 11/15/2009 Knee replacement, total -[facility] ARTHRP KATIE MOSS (more content not included)...[facility] 03-09-2024 Telephone encounter Note* Telephone Encounter - Sultana Catalan RN - 03/09/2024 3:13 PM EST Called pt and notified. [facility]-07-[facility] Miscellaneous Notes* Telephone Encounter - Sultana [...] she does. Please advise. documented in this encounterMary [facility]11-06-2024 Telephone encounter Note * Telephone Encounter - Michael Puga DO - 03/08/2024 9:35 PM EST Please inform patient Michael Puga DO [facility]11-06-[facility] Telephone encounter Note* Telephone Encounter - Mary Lopez LPN - 03/08/2024 10:01 AM EST Patient does not meet Medicare Guidelines to have the Wheelchair covered by insurance. States that patient needs to require a wheelchair for most of her daily needs. According to OV note they received it does not appear that she does. Please advise. [facility]10-31-[facility]24 NoteHNO ID: [id number] Author: SARAH MERCHANT PT Service: ? Author [...] L2x15' seat 9 2: shuttle leg press 3hbmluOw7', SL 4bandsL 20x, 2evoofV68k 3: shuttle calf raises 6bandsB 10x 4: [...] Session Stop Time : 1334 Sarah Merchant [facility]10-31-2024 History of Present illness Narrative* Sarah Merchant, [...] L2x15' seat 9 2: shuttle leg press 2eutypUr4', SL 4bandsL 20x, 3jrkfwX72w 3: shuttle calf raises 6bandsB 10x 4: [...] 1334 Sarah Merchant PT documented in this encounterMary [facility] Hospital10-31-2024 Telephone encounter Note * Telephone Encounter - Bhavna Arauz RN - 03/02/2024 1:47 PM EDT Patient calls and notified of below. Voices understanding. Bhavna Arauz RN [facility]10-31-[facility]24 Miscellaneous Notes* Telephone Encounter - Bhavna Arauz RN - 03/02/2024 1:47 PM EDT Patient calls and notified of below. Voices understanding. Bhavna Arauz RN * Telephone Encounter - Jacque Machuca MA - 03/02/2024 1:28 PM EDT Faxed to [place]. Left message to return call. Please notify patient. Jacque Machuca MA * Telephone Encounter - Michael Puga DO - 03/01/2024 10:50 PM EDT Fax my office note from today and standard wheelchair [facility] andthen notify her Michael Puga DO documented in this encounterMary [facility] Hospital10-31-2024 Telephone encounter Note * Telephone Encounter - Jacque Machuca MA - 03/02/2024 1:28 PM EDT Faxed to [place]. Left message to return call. Please notify patient. Jacque Machuca MA [facility]10-30-2024 Telephone encounter Note* Telephone Encounter - Michael Puga DO - 03/01/2024 10:50 PM EDT Fax my office note from today and standard wheelchair to her [facility] listed andthen notify her Michael Puga DO [facility]10-30-2024 NoteHNO ID: [id number] Author: MICHAEL PUGA DO Service: ? Author [...] at 1.6 with recent lab check at [facility]arcotics Investigator office in Jan at [facility], she is using her Bipap [...] Chronic dyspnea, has been fully evaluated by Narcotics Investigator whom doesn't feel this is due to [...] COMPARTMENTS 11/15/2009 Knee replacement, total -Left - [facility] ARTHRP KNE CONDYLEANDPLATU MEDIALANDLAT COMPARTMENTS 12/30/2009 [...] once daily (more content not included)...[facility] 03-01-2024 History of Present illness Narrative* Michael [...] at 1.6 with recent lab check at Narcotics Investigator office in Jan at [facility], she is using her Bipap [...] Chronic dyspnea, has been fully evaluated by Narcotics Investigator whom doesn't feel this is due to [...] CONDYLE&PLATU MEDIAL&LAT COMPARTMENTS 11/15/2009 Knee replacement, total -[facility] ARTHRP KNE CONDYLE&PLATU MEDIAL&LAT COMPARTMENTS 12/30/2009 Right knee replaced COLONOSCOPY FLX DX W/COLLJ SPEC WHEN PFRMD 06/29/2017 Colonoscopy EGD 10/17/2020 EGD W/O [facility] SPEC VARICIES INJ 01/08/2022 ESOPHAGOGASTRODUODENOSCOPY TRANSORAL DIAGNOSTIC [...] plan. See patient instructions. Michael Puga DO [address] [place] [address] documented in this encounterMary [facility]an Hospital10-17-2024 NoteHNO ID: [id number] Author: SARAH MERCHANT, PT Service: ? Author [...] on 11/15/23 through 01/14/24, extended thru 04/17/24 Davilla in home exercise program. Patient will demonstrate [...] Patient to be seen for Therapeutic exercise (86663), Neuromuscular re-education (57889), Therapeutic activities (73288), Self-mcc management (88241), Gait Training (93716), Patient/Family/Caregiver Education, General Conditioning PLAN FOR NEXT [...] hip ABd 20xR 6: shuttle leg press 3bibqbFy3' (30 reps), SL 5bandsR/L 10xea 7: shuttle calf raises 5bandsB 15x 8: B calf stretch on slant board x1' 9: recheck - see objective for details, discussed progress AND deficits, plans/options for fire patroller Intervention: Patient was educated in proper exercise technique and purpose for exercises. Skilled judgment was used in selection of appropriate interventions. Correct performance of therapeutic exercises was facilitated with verbal and visual cuing. Educated patient on rationale for performing exercises in rega (more content not included)...[facility]10-17-2024 History of Present illness Narrative* Sarah Merchant, [...] on 11/15/23 through 01/14/24, extended thru 04/17/24 Davilla in home exercise program. Patient will demonstrate [...] Patient to be seen for Therapeutic exercise (52526), Neuromuscular re-education (70170), Therapeutic activities (78827), Self-mcc management (78723), Gait Training (93596), Patient/Family/Caregiver Education, General Conditioning PLAN FOR NEXT [...] hip ABd 20xR 6: shuttle leg press 9otcejMd6' (30 reps), SL 5bandsR/L 10xea 7: shuttle calf raises 5bandsB 15x 8: B calf stretch on slant board x1' 9: recheck - see objective for details, discussed progress & deficits, plans/options for fire patroller Intervention: Patient was educated in proper exercise [...] 1640 Sarah Merchant PT documented in this encounterMary [facility] Hospital10-14-2024 NoteHNO ID: [id number] Author: WILFRED MCCLELLAN PTA Service: ? Author Type: Solar Designer Type: Progress Notes Filed: 02/14/2024 16:35 Note [...] Session Stop Time : 1404 Wilfred Mcclellan PTASouthern [facility]10-14-2024 History of Present illness Narrative* Wilfred Mcclellan [...] hip extension and hip flexion vs manual esznyqylmb75 x each 6: long sitting right /left [...] 1404 Wilfred Mcclellan PTA documented in this encounterMary [facility] Hospital10-10-2024 NoteHNO ID: [id number] Author: SARAH MERCHANT PT Service: ? Author [...] L3x10' seat 8 2: shuttle leg press 2fsalbJr6', 5hzhgfB64v, SL 4bands R/L 20xea 3: shuttle calf raises 6igyacJ44c 4: B calf stretch on slant board [...] Session Stop Time : 1334 Sarah Merchant [facility]10-10-2024 History of Present illness Narrative* [...] L3x10' seat 8 2: shuttle leg press 1qyrblZi7', 1jtvagX82p, SL 4bands R/L 20xea 3: shuttle calf raises 4vygvhA82v 4: B calf stretch on slant board [...] 1334 Sarah Merchant PT documented in this encounterMary [facility] Hospital10-07-2024 NoteHNO ID: [id number] Author: SARAH MERCHANT PT Service: ? Author [...] L3x10' seat 8 2: shuttle leg press 0xxrlkFx7', SL 4bands R/L 20xea 3: shuttle calf raises 8nxirjE28n 4: ASLR 2#L/R 20xea 5: supine hip [...] Session Stop Time : 1457 Sarah Merchant [facility]10-07-2024 History of Present illness Narrative* [...] L3x10' seat 8 2: shuttle leg press 4hhbksIm1', SL 4bands R/L 20xea 3: shuttle calf raises 6ssedlS67n 4: ASLR 2#L/R 20xea 5: supine hip [...] 1457 Sarah Merchant PT documented in this encounterMary [facility] Hospital09-30-2024 NoteHNO ID: [id number] Author: SARAH MERCHANT PT Service: ? Author [...] at ankles 15x 6: shuttle leg press 7xytrzUb7', SL 6 hikeuO38r, 2ocsplE2z, 0kgmcaD40k 7: shuttle calf raises 3kqpegL56w 8: Nu-step L3x10' seat 8 Skilled Intervention: [...] Session Stop Time : 1512 Sarah Shonda [facility]09-30-2024 History of Present illness Narrative* [...] at ankles 15x 6: shuttle leg press 0lkeamNy1', SL 6 fzdzzB65q, 1xgpihS4b, 0btackJ54w 7: shuttle calf raises 9jvzgbY71i 8: Nu-step L3x10' seat 8 Skilled Intervention: [...] 1511 Sarah Merchant PT documented in this encounterMary [facility] Hospital09-25-2024 NoteHNO ID: [id number] Author: WILFRED MCCLELLAN PTA Service: ? Author Type: Solar Designer Type: Progress Notes Filed: 01/26/2024 18:32 Note [...] patient reports less fatigue today also reports mechanical integrity engineer increased her potassium , patient reports increased [...] : 1520 Session Stop Time : 1600 Wilrfed TOSHIA McclellanSouthern [facility]09-25-20[facility] History of Present illness Narrative* Wilfred Mcclellan, SHUTDOWN COORDINATOR - 01/26/2024 6:30 PM EDT Episode Visit [...] patient reports less fatigue today also reports mechanical integrity engineer increased her potassium , patient reports increased [...] 1600 Wilfred Mcclellan PTA documented in this encounterMary [facility]an Hospital09-17-2024 NoteHNO ID: [id number] Author: SARAH MERCHANT, FRANTZ Service: ? Author [...] on 11/15/23 through 01/14/24, extended thru 04/17/24 Davilla in home exercise program. Patient will demonstrate [...] Patient to be seen for Therapeutic exercise (36563), Neuromuscular re-education (90828), Therapeutic activities (94200), Self-mcc management (97558), Gait Training (22545), Patient/Family/Caregiver Education, General Conditioning PLAN FOR NEXT [...] AND SOB with activity. has f/u with mechanical integrity engineer this month AND PCP next month. says [...] fatigue AND SOB. advised f/u with PCP, mechanical integrity engineer, scene and lighting design lecturer prn Skilled Intervention: Patient was educated in proper exer (more content not included)...[facility]09-17-2024 History of Present illness Narrative* Sarah Merchant, [...] on 11/15/23 through 01/14/24, extended thru 04/17/24 Davilla in home exercise program. Patient will demonstrate [...] Patient to be seen for Therapeutic exercise (16088), Neuromuscular re-education (23121), Therapeutic activities (93526), Self-mcc management (96093), Gait Training (12149), Patient/Family/Caregiver Education, General Conditioning PLAN FOR NEXT [...] & SOB with activity. has f/u with mechanical integrity engineer this month & PCP next month. sayvalerie [...] fatigue & SOB. advised f/u with PCP, mechanical integrity engineer, scene and lighting design lecturer prn Skilled Intervention: Patient was educated in [...] 1430 Sarah Merchant PT documented in this encounterMary [facility] Hospital09-10-2024 Telephone encounter Note * Telephone Encounter - Julianna Cano LPN - 01/11/2024 10:23 AM EDT Order faxed as below. [facility]09-10-[facility] Miscellaneous Notes* Telephone Encounter - Julianna [...] Flores. Carie Lora RN documented in this encounterMary [facility]an Hospital09-10-2024 Telephone encounter Note * Telephone Encounter - Nunu Gonzalez PA-C - 01/11/2024 9:41 AM EDT Rx ordered, please fax. Nunu Gonzalez PA-C [facility]09-09-2024 Telephone encounter Note* Telephone Encounter - Carie Lora RN - 01/10/2024 2:39 PM EDT Patient calling with request for script for standard wheelchair for weakness and gait instability due to back problems. If agree, please fax script to Kevin Flores. Carie Lora RN [facility]08-12-2024 NoteHNO ID: [id number] Author: SARAH MERCHANT, FRANTZ Service: ? Author [...] 4: bridging 10x2 5: shuttle leg press 7blrcaJo6', SL 5bandsL/R 15xea 6: shuttle calf raises [...] Session Stop Time : 1632 Sarah Merchant [facility]08-12-2024 History of Present illness Narrative* Sarah Merchant, [...] 4: bridging 10x2 5: shuttle leg press 2olccdPo0', SL 5bandsL/R 15xea 6: shuttle calf raises [...] 1632 Sarah Merchant PT documented in this encounterMary [facility] Hospital08-06-2024 NoteHNO ID: [id number] Author: WILFRED MCCLELLAN PTA Service: ? Author Type: Solar Designer Type: Progress Notes Filed: 12/07/2023 17:49 Note [...] Session Stop Time : 1730 Wilfred Mcclellan PTASouthern [facility]08-06-2024 History of Present illness Narrative* Wilfred Mcclellan [...] Mcclellan PTA - 12/07/2023 5:18 PM EDT Program_ID:[id number] Access Code: [email or web address] URL: [email or web address]/ Date: 12-07-2023 Prepared By: Margoth Mcclellan Program Notes Exercises - Seated Hip Abduction - 1-2 x daily - 5 x weekly - 2-3 sets - 10 reps documented in this encounterMary [facility]an Hospital07-31-2024 Instructions* Patient Instructions* Michael Puga DO - 12/01/2023 2:00 PM EDT Make sure you are taking: Vitamin C 500-100 mg a day Zinc 15-25 mg a day Vitamin D3 at least 1000 international unit(s) a day Vitamin B12 at least 500-1000 mcg a day documented in this encounterMary Rutan Hospital07-31-2024 NoteHNO ID: [id number] Author: MICHAEL PUGA DO Service: ? Author [...] COMPARTMENTS Comment: Knee replacement, total -Left - [facility] 12/30/2009: ARTHRP KATIE CONDYLEANDPLATU MEDIALANDLAT COMPARTMENTS [...] ROS: See (more content not included)...[facility]07-31-2024 History of Present illness Narrative* Michael Puga, [...] CONDYLE&PLATU MEDIAL&LAT COMPARTMENTS Comment: Knee replacement, total [facility] 12/30/2009: ARTHRP KNE CONDYLE&PLATU MEDIAL&LAT COMPARTMENTS Comment: Right knee replaced 06/29/2017: COLONOSCOPY FLX DX W/COLLJ SPEC WHEN PFRMD Comment: Colonoscopy 10/17/2020: EGD Comment: 01/08/2022: EGD W/O [facility] SPEC VARICIES INJ 11/29/2000: ESOPHAGOGASTRODUODENOSCOPY TRANSORAL DIAGNOSTIC [...] plan. See patient instructions. Michael Puga DO [address] [place] [address] documented in this encounterMary [facility]07-[facility]24 Telephone encounter Note * Telephone Encounter - Loil Adamson RN - 11/26/2023 8:41 AM EDT Pt returned call and given provider's message below with verbalized understanding. Patient reports her phone on previous call. [facility]07-26-[facility] Miscellaneous Notes* Telephone Encounter - Loli [...] Puga. Asia Rosales APRN.CARMELINA documented in this encounterMary Rutan Hospital07-26-2024 Telephone encounter Note * Telephone Encounter - Jacque Machuca MA - 11/26/2023 8:24 AM EDT Started to speak with patient and other line disconnected. Please try again. Jacque Machuca MA [facility]07-26-[facility]24 Telephone encounter Note* Telephone Encounter - Asia Rosales APRN.CNP - 11/26/2023 6:55 AM EDT Please let her know that overall no acute concerns with her labs, she can discuss in more detail ather upcoming appt with Dr. Puga. Asia Rosales APRN.CARMELINA [facility] Work Phone: 1(330) 288-873007-25-2024 NoteHNO ID: [id number] Author: SARAH MERCHANT, FRANTZ Service: ? Author [...] Ankle Eversion: 4+/5 Gait Gait Device: Cane ([employer] cane) Balance Static Standing Balance: Narrow Base [...] Session Stop Time : 922 Sarah Merchant [facility]07-25-2024 History of Present illness Narrative* Sarah Merchant, [...] Ankle Eversion: 4+/5 Gait Gait Device: Cane ([employer] cane) Balance Static Standing Balance: Narrow Base [...] 922 Sarah Merchant PT documented in this encounterMary Rutan Hospital07-23-2024 NoteHNO ID: [id number] Author: SARAH MERCHANT PT Service: ? Author [...] weakness/instability with SLS 4: shuttle leg press [id number]', SL 5bandsL/R 10xea 5: shuttle calf raises [...] Session Stop Time : 1501 Sarah Merchant [facility]07-23-2024 History of Present illness Narrative* Sarah Merchant, [...] hipweakness/instability with SLS 4: shuttle leg press [id number]', SL 5bandsL/R 10xea 5: shuttle calf raises [...] 1501 Sarah Merchant PT documented in this encounterMary Rutan Hospital07-15-2024 NoteHNO ID: [id number] Author: SAARH MERCHANT PT Service: ? Author Type: Physical [...] of Care: created on 11/15/23 through 01/14/24 Davilla in home exercise program. Patient will demonstrate [...] Planned: 15 Planned Treatment Interventions: Therapeutic exercise (13511), Neuromuscular re-education (87748), Therapeutic activities (52120), Self-mcc management (60834), Gait Training (68572), Patient/Family/Caregiver Education, General Conditioning PLAN FOR NEXT [...] Strength R UE Strength: (more content not included)...[facility] 11-15-2023 History of Present illness Narrative* Sarah [...] of Care: created on 11/15/23 through 01/14/24 Davilla in home exercise program. Patient will demonstrate [...] Planned: 15 Planned Treatment Interventions: Therapeutic exercise (09878), Neuromuscular re- education (50577), Therapeutic activities (76509), Self-mcc management (90302), Gait Training (60613), Patient/Family/Caregiver Education, General Conditioning PLAN FOR NEXT [...] 1723 Sarah Merchant PT documented in this encounterMary Rutan Hospital06-18-2024 Telephone encounter Note * Telephone Encounter - Julianna Cano LPN - 10/19/2023 9:33 AM EDT [facility] informed. D/c Home O2 faxed to [employer] [facility]06-18-[facility] Miscellaneous Notes* Telephone Encounter - Julianna Moreno LPN - 10/19/2023 9:33 AM EDT [facility] informed. D/c Home O2 faxed to [employer]. * Telephone Encounter - Michael Puga DO [...] - 10/18/2023 9:07 AM EDT Bhavna from [facility] Home Health calling patient had seen Key Portillo DIRECTOR SUMMER SESSIONS on 10/14/2023. She started her on Trazodone 50 mg at bedtime. Patient started Trazodone rx Wednesday night and said she did not sleep at all, not helping. Asking if the dose could be increased or changed to something else? Patientsaid Zolpidem made her feel hung over. Patient uses [facility] for her pharmacy. Aware DIRECTOR [employer] is out of the office this week. Patient asking to have oxygen taken out of the household, she is not using it at all. [facility] started her on the oxygen and [employer] is her oxygen supplier. Pending order if wanted. Please call Bhavna back response. Please advise documented in this encounterMary Rutan Hospital06-18-2024 Telephone encounter Note * Telephone Encounter [...] at bedtime. Authorizing Provider: MICHAEL PUGA DO [facility]06-17-[facility] Telephone encounter Note* Telephone Encounter - Nadine Colon LPN - 10/18/2023 9:07 AM EDT Bhavna from [facility] Home Health calling patient had seen Key Portillo DIRECTOR [employer] on 10/14/2023. She started her on Trazodone 50 mg at bedtime. Patient started Trazodone rx Wednesday night and said she did not sleep at all, not helping. Asking if the dose could be increased or changed to something else? Patientsaid Zolpidem made her feel hung over. Patient uses [facility] for her pharmacy. Aware DIRECTOR [employer] is out of the office this week. Patient asking to have oxygen taken out of the household, she is not using it at all. [facility] started her on the oxygen and [employer] is her oxygen supplier. Pending order if wanted. Please call Bhavna back response. Please advise [facility] Telephone encounter Note* Telephone Encounter - [...] Cano LPN October 18, 2023 8:59 AM [facility]-17-[facility] Miscellaneous Notes* Telephone Encounter - Marisol [...] 18, 2023 8:58 AM documented in this encounterMary Rutan Hospital06-17-2024 Telephone encounter Note * Telephone Encounter [...] Yumiko Gomez October 18, 2023 8:58 AM [facility]06-13-[facility] History of Present illness Narrative* Key Portillo APRN.PERFORMANCE IMPROVEMENT COORDINATOR - 10/14/2023 1:20 PM EDT Chief Complaint Patient presents with: Transition Of Care HPI Michael Meier is a 83 year old female who presents here today for Above Complaints. Michael is an established patient of Dr. Edd DO and myself. Concerns today... Hospital follow-up -- [facility] ER visit on 09/26 d/t SOB. [...] Has one day left of prednisone taper. FDC coming to house weekly -- likely last visit will be on Wednesday. Pt and usp monitoring O2 saturation. Pt has not been [...] COMPARTMENTS 11/15/2009 Knee replacement, total -Left - [facility] ARTHRP KNE CONDYLE&PLATU MEDIAL&LAT COMPARTMENTS 12/30/2009 Right knee replaced COLONOSCOPY FLX DX W/COLLJ SPEC WHEN PFRMD 06/29/2017 Colonoscopy EGD 10/17/2020 EGD W/O [facility] SPEC VARICIES INJ 01/08/2022 ESOPHAGOGASTRODUODENOSCOPY TRANSORAL DIAGNOSTIC [...] d/t poor sleep. Continue with at home usp visits. 2. Anxiety - ICD9: 300.00, ICD10: [...] d/t poor sleep. Continue with at home usp visits. RTO in 1.5 months as scheduled, sooner if needed. Prescription instructions reviewed with patient as applicable. Potential red flag symptoms discussed with the patient. Reviewed appropriate action plan to take if red flag symptoms occur. Patient agreeable to treatment plan. Key Abrams APRN.CARMELINA [address] [place] [address] documented in this encounterMary Rutan Hospital06-10-2024 History of Present illness Narrative* Isabella Michel RN - 10/11/2023 1:16 PM EDT TRANSITION CARE MANAGEMENT (TCM) FOLLOW-UP NOTE Provider Action/FYI Patient identified by name and date of : YES Spoke to patient Discharge Network Status: Hhs-qv-Nnaledp (OON) Discharge Summary: Pt discharged from [facility] on 10/02/23. Admitted for: Shortness of breath Concerns: Pt reports she is doing well and feeling much improved. She is 96% pulse ox on RA. States the nurse with [facility] states her lungs were clear today. has fam med f/u 10/13. Clay Roaster plan for next outreach: TCM will continue to follow. IRENE Education Ordered -: No Isabella Michel RN October 11, 2023 1:16 PM documented in this encounterMary Rutan Hospital06-06-2024 Telephone encounter Note * Telephone Encounter - Loli Adamson RN - 10/07/2023 10:23 AM EDT Re-faxed CMP order to [facility] per Ernestine request. Reports they did not receive it yesterday. [facility] Miscellaneous Notes* Telephone Encounter - Loli Adamson RN - 10/07/2023 10:23 AM EDT Re-faxed CMP order to [facility] per Ernestine request. Reports they did [...] - 10/06/2023 12:00 PM EDT Ernestine with [facility] calling, she spoke with patient today. Patient is doing well recovering from thepneumonia other than she has had diarrhea for 3 days. Today is the worst day and she is having a BMevery time she is urinating. Ernestine states the biggest concern would be dehydration. Asking if PCP has any recommendation. Please advise. documented in this encounterMary Rutan Hospital06-06-2024 Telephone encounter Note * Telephone Encounter - Katharine Paul MA - 10/07/2023 9:14 AM EDT Spoke Ernestine and faxed order [facility] Telephone encounter Note* Telephone Encounter - Michael Puga DO - 10/06/2023 10:41 PM EDT Ok to check labs as ordered below If not improving, then will need stool studies/C diff testing Michael Puga DO [facility]06-05-[facility]24 Telephone encounter Note* Telephone Encounter - Mary Lopez LPN - 10/06/2023 12:00 PM EDT Ernestine with [facility] HH calling, she spoke with patient today. Patient is doing well recovering from thepneumonia other than she has had diarrhea for 3 days. Today is the worst day and she is having a BMevery time she is urinating. Ernestine states the biggest concern would be dehydration. Asking if PCP has any recommendation. Please advise. [facility] Telephone encounter Note* Telephone Encounter - Katharine Paul MA - 10/06/2023 9:14 AM EDT Nurse from [facility] was notified Katharine Paul MA [facility]06-05-[facility]24 Miscellaneous Notes* Telephone Encounter - Katharine Paul MA - 10/06/2023 9:14 AM EDT Nurse from [facility] was notified Katharine Paul MA * Telephone Encounter - Michael Puga DO - 10/06/2023 9:01 AM EDT Please make sure her Narcotics Investigator is aware of her BLOOD PRESSURE elevation [...] EDT -Bhavna reports pt was admitted to [facility] HH nursing today. Bhavna reports Nursing will [...] message/orders. Constance Ervin LPN documented in this encounterMary Rutan Hospital06-05-2024 Telephone encounter Note * Telephone Encounter - Michael Puga DO - 10/06/2023 9:01 AM EDT Please make sure her Narcotics Investigator is aware of her BLOOD PRESSURE elevation [...] cold/allergy symptoms. Authorizing Provider: MICHAEL PUGA DO [facility]06-03-2024 Telephone encounter Note* Telephone Encounter - Constance Ervin LPN - 10/04/2023 3:52 PM EDT -Bhavna reports pt was admitted to [facility] nursing today. Bhavna reports Nursing will [...] Bhavna with provider message/orders. Constance Ervin LPN [facility]06-03-[facility] History of Present illness Narrative* Magaly Puri MA - 10/04/2023 11:17 AM EDT POPULATION HEALTH NAVIGATION OUTREACH Action/FYI TCM Hospital Discharge Follow up. TCM Eligible until 10/16/23. Pt cell [phone] Spoke with patient; scheduled appt Reason for [...] at discharge, doing breathing treatments diligently. Manny [facility] nursing to visit today. Encouraged pt to bring DC papers to PCP f/u Navigation Team Please assist with scheduling TCM Hospital Discharge Follow up. TCM Eligible until 10/16/23. Pt [phone] Thank you SUMMARY: Discharge Network Status: Xll-sa-Bjmtuun (OON) Discharge Pt discharged from [facility] on 10/02/23. Admitted for: Shortness of breath [...] TCM Home Visit Referral Source of Stratification: [facility] Hospital Admission Status: Discharged Readmission Risk Score: N/A Patient's zip code: N/A Is zip code within program service area: No Patient meets program referral criteria: No Patient does not qualify for High Risk TCM Home Visit program due to: Readmission Risk Score does not meet criteria Disposition: [facility] not [facility], will provide TCM outreach follow-up for 30-days Isabella Michel RN October 04, 2023 10:40 AM Contact made with patient: Yes Hi my name is Isabella Michel RN and I am calling from the [facility] on behalf of yourPCP, Michael Puga, [...] like to speak with a social work deboning team leader to help give you support [...] I will send your request to a instructional design technologist who will contact and assist you with that appointment. This will give you an opportunity to ask any questions or address any concerns youmay have with your PCP. Inform the patient that if they have any questions or concerns prior to that appointment, to call their PCP's office right away. ACTION TAKEN: Patient desires an appointment - Routed to [facility] [[phone]] for schedulingtelehealth visit (telephonic, virtual visit, or [...] 04, 2023 10:51 AM documented in this encounterMary [facility]an Hospital05-31-2024 Telephone encounter Note * Telephone Encounter - Jacque Machuca MA - 10/01/2023 3:36 PM EDT Larissa informed. Jacque Machuca MA [facility]05-31-2024 Miscellaneous Notes* Telephone Encounter - Jacque Machuca MA - 10/01/2023 3:36 PM EDT Larissa informed. Jacque Machuca MA * Telephone Encounter - Key Portillo APRN.CNP - 10/01/2023 2:39 PM EDT Yes, PCP will follow. Thank you, Key Portillo APRN.CNP * Telephone Encounter - Mary Lopez LPN - 10/01/2023 11:49 AM EDT Larissa from [facility] calling, patient is being discharged from [facility] tomorrow. She was referred for usp for O2 management. They plan to see patient Wednesday. Asking if PCP is willing to follow.Please advise. documented in this encounterMary Rutan Hospital05-31-2024 Telephone encounter Note * Telephone Encounter - Key Portillo APRN.CNP - 10/01/2023 2:39 PM EDT Yes, PCP will follow. Thank you, Key Portillo APRN.PERFORMANCE IMPROVEMENT COORDINATOR [facility]-31-[facility] Telephone encounter Note* Telephone Encounter - Mary Lopez LPN - 10/01/2023 11:49 AM EDT Larissa from [facility] calling, patient is being discharged from [facility] tomorrow. She was referred for usp for O2 management. They plan to see patient Wednesday. Asking if PCP is willing to follow.Please advise. [facility]12[facility]07[facility] History of Present illness Narrative* Michael Puga, [...] have symptoms. Has recently seen Dr. Hickey Narcotics Investigator and had repeat ECHOand other cardiac testing [...] things together such as going to see [employer] and go out to eat. Abnormal thyroid [...] COMPARTMENTS 11/15/2009 Knee replacement, total -Left - [facility] ARTHRP KNE CONDYLE&PLATU MEDIAL&LAT COMPARTMENTS 12/30/2009 Right knee replaced COLONOSCOPY FLX DX W/COLLJ SPEC WHEN PFRMD 06/29/2017 Colonoscopy EGD 10/17/2020 EGD W/O [facility] SPEC VARICIES INJ 01/08/2022 ESOPHAGOGASTRODUODENOSCOPY TRANSORAL DIAGNOSTIC 11/29/2000 EGD ESOPHAGOGASTRODUODENOSCOPY TRANSORAL DIAGNOSTIC 06/29/2017 EGD JOINT REPLACEMENT HX LAPS SURG CHOLECYSTECTOMY W/CHOLANGIOGRAPHY PACEMAKER IMPLANT 01/2011 SKIN BIOPSY HX TONSILLECTOMY HX TOTAL ABDOMINAL HYSTERECT W/WO RMVL TUBE OVARY Hysterectomy, AGL Current Outpatient Medications Medication Sig PARoxetine (PAXIL) [...] vaccine - ICD9: V04.89, ICD10: Z23 - [place] COVID-19 VACCINE ( SEASON) AGE 12+ YR [...] - ICD9: 496, ICD10: J44.9 F/u with Hogshead Mat Inspector 8. IFG (impaired fasting glucose) - ICD9: [...] See patient instructions. Michael Puga DO [address] [place] [address] documented in this encounterMary Rutan Hospital11-30-2023 Miscellaneous Notes* Telephone Encounter - Nadine Colon LPN - 04/01/2023 4:20 PM EST Phoned patient and went over notes from Dr Puga with understanding. * Telephone Encounter - Michael Puga DO - 03/31/2023 8:32 PM EST We called the mechanical integrity engineer office but she will need to further discuss with the specialist as well Michael Puga DO * Telephone Encounter - Loli Adamson RN - 03/31/2023 2:45 PM EST Patient asking if pcp ever communicated with Dr. Hickey about her diltiazem making her tired. Pleaseadvise patient. documented in this encounterMary Rutan Hospital09-11-2023 Miscellaneous Notes* Telephone Encounter - Amanda Pratt RN - 01/11/2023 11:25 AM EDT Order and demographics faxed to Dr. Alcala. Patient notified. * Telephone Encounter - Key Portillo APRN.PERFORMANCE IMPROVEMENT COORDINATOR - 01/11/2023 10:18 AM EDT Order placed. Please fax. Thank you, Key Portillo APRN.PERFORMANCE IMPROVEMENT COORDINATOR * Telephone Encounter - Amanda Pratt RN - 01/11/2023 9:57 AM EDT Patient calls to report that at last OV it was discussed that patient needed to have a sleep study done. Patient requesting to have done with Dr. Alcala and needs to have order/reason for testing faxed to [phone]. Noted referral to pulmonary medicine which was completed but no order for sleep study. Not pended. Wasn't sure what provider wanted. Amanda Pratt RN documented in this encounterMary Rutan Hospital08-31-2023 Miscellaneous Notes* Telephone Encounter - Chloe Castro LPN - 12/31/2022 8:43 AM EDT Spoke with pt and information listed below given. Pt verbalizes understanding. Transferred pt to instructional design technologist to get apt booked. Chloe Castro LPN [...] I would like her to see the Hogshead Mat Inspector for opinion to determine if any chance ofasthma or COPD present Michael Puga DO documented in this encounterMary Rutan Hospital08-28-2023 History of Present illness Narrative* Lexi Peacock RPFT - 12/28/2022 2:00 PM EDT PULM FUNCTION SMARTBLOCK: Provider: Michael Puga DO Assisting Tech: Lexi Peacock RPFT Spirometry w/BD: 1 documented in this encounterMary Rutan Hospital08-22-2023 History of Present illness Narrative* Michael [...] he was just recently moved into a correction. + fatigue, admits that she doesn't want [...] hydrochlorothiazide which dose was recently increased by Narcotics Investigator. Feels this doesn't make her feel well. Fatigue symptoms, feels she is more isolated for the last 2 years since covid 19 pandemic and limitations with getting out with friends. Also brother Serg is in correction/ECF now and she is home alone. Has [...] have symptoms. Has recently seen Dr. Hickey Narcotics Investigator and had repeat ECHOand other cardiac testing [...] COMPARTMENTS 11/15/2009 Knee replacement, total -Left - [facility] ARTHRP KNE CONDYLE&PLATU MEDIAL&LAT COMPARTMENTS 12/30/2009 Right knee replaced COLONOSCOPY FLX DX W/COLLJ SPEC WHEN PFRMD 06/29/2017 Colonoscopy EGD 10/17/2020 EGD W/O [facility] SPEC VARICIES INJ 01/08/2022 ESOPHAGOGASTRODUODENOSCOPY TRANSORAL DIAGNOSTIC [...] See patient instructions. Michael Puga DO [address] [place] [address] documented in this encounterMary Rutan Hospital05-31-2023 Miscellaneous Notes* Telephone Encounter - Asia [...] 09/29/2022 9:37 AM EDT Pharmacy verified in [facility] Patient has been identified by name and [...] advise. Yvonne Nix Pss documented in this [facility]02-27-2023 Miscellaneous Notes* Telephone Encounter - Julianna [...] patient. Julianna Valladares Pss documented in this encounterMary Rutan Hospital02-20-2023 Instructions* Patient Instructions* Michael Puga DO - 06/22/2022 12:14 PM EST STOP Metformin medication Increase fluid intake to at least 60 oz of water a day Increase protein intake in your diet- protein drink daily Increase iron supplement to twice a day with a meal documented in this [facility]02-20-2023 History of Present illness Narrative* Michael [...] he was just recently moved into a correction. + fatigue, admits that she doesn't want [...] hydrochlorothiazide which dose was recently increased by Narcotics Investigator. Feels this doesn't make her feel well. Fatigue symptoms, feels she is more isolated for the last 2 years since covid 19 pandemic and limitations with getting out with friends. Also brother Serg is in correction/ECF now and she is home alone. Has [...] that are chronic. Has been seeing CardiologistDr. Edelmira. No chest pressure or pain. No fevers [...] COMPARTMENTS 11/15/2009 Knee replacement, total -Left - [facility] ARTHRP KNE CONDYLE&PLATU MEDIAL&LAT COMPARTMENTS 12/30/2009 Right knee replaced COLONOSCOPY FLX DX W/COLLJ SPEC WHEN PFRMD 06/29/2017 Colonoscopy EGD 10/17/2020 EGD W/O [facility] SPEC VARICIES INJ 01/08/2022 ESOPHAGOGASTRODUODENOSCOPY TRANSORAL DIAGNOSTIC [...] See patient instructions. Michael Puga DO [address] [place] [address] documented in this encounterMary Rutan Hospital02-08-2023 Miscellaneous Notes* Telephone Encounter - Carie Lora RN - 06/10/2022 12:43 PM EST Spoke with patient. Given message from provider's office. Patient verbalizes understanding. Carie Lora RN * Telephone Encounter - Jacque Machuca - 06/10/2022 11:49 AM EST Left message for patient to return call. Echo results faxed to [facility] office 06/10/2022 HARIS Machuca * Telephone Encounter - Key Portillo APRN.CNP - 06/10/2022 10:56 AM EST Please call patient and let her know that ECHO shows no acute concerns. I have no ECHO in our system to compare to. Please fax this result to Dr. Hickey's office for review. Thank you, Key Portillo APRN.CNP documented in this encounterMary Rutan Hospital02-06-2023 Miscellaneous Notes* Telephone Encounter - Jacque [...] you, Key Portillo APRN.CNP documented in this encounterMary Rutan Hospital02-06-2023 Miscellaneous Notes* Telephone Encounter - Key Portillo APRN.CARMELINA - 06/08/2022 7:48 AM EST I agree with 25 mg tablets. Thank you, Key Portillo APRN.CNP * Telephone Encounter - Nadine Colon LPN - 06/05/2022 3:09 PM EST Stephy from [facility] pharmacy calling asking about HCTZ 12.5 mg [...] phone pharmacy with reply. documented in this encounterMary Rutan Hospital02-02-2023 Instructions* Patient Instructions* Key Portillo APRN.CNP - 06/04/2022 3:07 PM EST Mounjaro --- weekly Trulcity -- Weekly Victoza -- daily Saxenda -- Daily Start HCTZ 12.5 mg daily for BP and swelling in legs. Follow-up in 1 month to reassess BP. Will assess GLP-1 injection at this time as well. Blood work today. EKG today. Schedule ECHO documented in this encounterMary Rutan Hospital02-02-2023 History of Present illness Narrative* Key Portillo APRN.CNP - 06/04/2022 2:40 PM EST Chief Complaint Patient presents with: Fatigue: Extreme fatigue , sob and sleeping a lot. For a couple months HPI Michael Meire is a 82 year old female who [...] CONDYLE&PLATU MEDIAL&LAT COMPARTMENTS 11/15/2009 Knee replacement, total [facility] ARTHRP KNE CONDYLE&PLATU MEDIAL&LAT COMPARTMENTS 12/30/2009 Right knee replaced COLONOSCOPY FLX DX W/COLLJ SPEC WHEN PFRMD 06/29/2017 Colonoscopy EGD 10/17/2020 EGD W/O [facility] SPEC VARICIES INJ 01/08/2022 ESOPHAGOGASTRODUODENOSCOPY TRANSORAL DIAGNOSTIC [...] agreeable to treatment plan. Key Abrams APRN.CARMELINA [address] [place] [address] documented in this encounterMary Rutan Hospital01-31-2023 History of Present illness Narrative* Anita [...] 02, 2022 1:53 PM documented in this encounterMary Rutan Hospital01-31-2023 Miscellaneous Notes* Telephone Encounter - Magaly [...] PCP with patient's request for glucometer from [facility], and possible need to speak with stain dipper/care analyst. Rosaura, you've reached [facility], my name is Magaly Fontana, [...] breakfast. Requesting glucometer meter and supplies from [facility] in [place] Based on what you've told me, I [...] : N/A Protocols used: Weakness (Generalized) and [id number] documented in this encounterMary [facility] Miscellaneous Notes* Telephone Encounter - Julianna [...] advise, Bhavna Arauz RN documented in this encounterMary [facility]12-[facility] History of Present illness Narrative* Michael Puga, [...] he was just recently moved into a correction. + fatigue, admits that she doesn't want [...] hydrochlorothiazide which dose was recently increased by Narcotics Investigator. Feels this doesn't make her feel well. Fatigue symptoms, feels she is more isolated for the last 2 years since covid 19 pandemic and limitations with getting out with friends. Also brother Serg is in correction/ECF now and she is home alone. Has [...] these. Atrial fibrillation, hx of CAD, seeing Narcotics Investigator regularly Insomnia, long standing, thinks this is [...] COMPARTMENTS 11/15/2009 Knee replacement, total -Left - [facility] ARTHRP KNE CONDYLE&PLATU MEDIAL&LAT COMPARTMENTS 12/30/2009 Right knee replaced COLONOSCOPY FLX DX W/COLLJ SPEC WHEN PFRMD 06/29/2017 Colonoscopy EGD 10/17/2020 EGD W/O [facility] SPEC VARICIES INJ 01/08/2022 ESOPHAGOGASTRODUODENOSCOPY TRANSORAL DIAGNOSTIC [...] plan. See patient instructions. Michael Puga DO [address] [place] [address] documented in this encounterMary [facility] Hospital10-17-[facility] History of Present illness Narrative* Michael [...] he was just recently moved into a correction. + fatigue, admits that she doesn't want [...] hydrochlorothiazide which dose was recently increased by Narcotics Investigator. Feels this doesn't make her feel well. Fatigue symptoms, feels she is more isolated for the last 2 years since covid 19 pandemic and limitations with getting out with friends. Also brother Serg is in correction/ECF now and she is home alone. Has [...] COMPARTMENTS 11/15/2009 Knee replacement, total -Left - [facility] ARTHRP KNE CONDYLE&PLATU MEDIAL&LAT COMPARTMENTS 12/30/2009 Right knee replaced COLONOSCOPY FLX DX W/COLLJ SPEC WHEN PFRMD 06/29/2017 Colonoscopy EGD 10/17/2020 EGD W/O [facility] SPEC VARICIES INJ 01/08/2022 ESOPHAGOGASTRODUODENOSCOPY TRANSORAL DIAGNOSTIC [...] plan. See patient instructions. Michael Puga DO [address] [place] [address] documented in this encounterMary [facility] Hospital09-16-[facility] History of Present illness Narrative* Raymundo [...] needed at this time. documented in this encounterMary [facility] Hospital09-08-2022 History and physical note * Raymundo [...] COMPARTMENTS 11/15/2009 Knee replacement, total -Left - [facility] ARTHRP KNE CONDYLE&PLATU MEDIAL&LAT COMPARTMENTS 12/30/2009 Right [...] entered by the nurse and reviewed by dc Nursing Notes: Portia Camarillo RN 12/18/2021 3:15 [...] 2022 TIME: 1:00 PM documented in this encounterMary [facility] Hospital09-08-2022 Nurse Note* Nyla Fraga RN - 01/08/2022 2:05 PM EDT Patient arrived laying on left side. States that she is not having any pain at this time. Patient'sabdomen appears to be nondistended and soft at this time. documented in this encounterMary [facility]an Hospital08-31-2022 Miscellaneous Notes* Telephone Encounter - Joshua King - 12/31/2021 11:49 AM EDT Received last note and Pacer check from [facility]. Scanned into [employer] and given to [facility] nurses to review Joshua King documented in this encounterMary [facility]an Hospital08-18-2022 History of Present illness Narrative* Raymundo [...] MEDIAL&LAT COMPARTMENTS 11/15/2009 Knee replacement, total -Left [facility] ARTHRP KNE CONDYLE&PLATU MEDIAL&LAT COMPARTMENTS 12/30/2009 [...] entered by the nurse and reviewed by dc Nursing Notes: Portia Camarillo RN 12/18/2021 3:15 [...] De León III, MD documented in this encounterMary [facility] Hospital08-18-2022 Nurse Note* Portia Camarillo RN - [...] 06/29/2017 Portia Camarillo RN documented in this encounterMary [facility] Hospital06-20-2022 History of Present illness Narrative* Nunu [...] sooner. Nunu Gonzalez PA-C documented in this encounterMary [facility] Hospital02-18-2022 Miscellaneous Notes* Telephone Encounter - Jacque Dumont Ma - 06/20/2021 8:08 AM EST Pt notified and verbalized understanding Jacque Dumont Ma * Telephone Encounter - Asia Rosales APRN.CNP - 06/19/2021 5:43 PM EST Please let Michael know that her lab results look good, no concerns. Asia Rosales APRN.CNP documented in this encounterMary [facility]an Hospital02-07-2022 Evaluation note* Diagnosis Onset Date Resolution [...] Paroxysmal atrial fibrillation chronic Sick sinus syndrome [facility] Work Phone: [phone]) 148-440306-17-2021 History of Past illness Narrative* Problem Noted [...] Last Assessment & Plan: Dx. after [facility] 2010 Actinic keratosis 01/20/2007 03/11/2015 Other [...] of this encounter (statuses as of 09/02/2021) [facility] History of Past illness Narrative* Problem [...] 03/11/2015 Last Assessment & Plan: Dx. after [facility] 2009 Actinic keratosis 01/20/2007 03/11/2015 Other chronic [...] of this encounter (statuses as of 09/03/2021) [facility] History of Past illness Narrative* Problem [...] 03/11/2015 Last Assessment & Plan: Dx. after [facility] 2009 Actinic keratosis 01/20/2007 03/11/2015 Other chronic [...] of this encounter (statuses as of 10/20/2021) [facility] of Past illness Narrative* Problem [...] 03/11/2015 Last Assessment & Plan: Dx. after [facility] 2009 Actinic keratosis 01/20/2007 03/11/2015 Other chronic [...] of this encounter (statuses as of 12/21/2021) [facility] of Past illness Narrative* Problem [...] 03/11/2015 Last Assessment & Plan: Dx. after [facility] 2009 Actinic keratosis 01/20/2007 03/11/2015 Other chronic [...] of this encounter (statuses as of 12/31/2021) [facility] of Past illness Narrative* Problem [...] 03/11/2015 Last Assessment & Plan: Dx. after [facility] 2009 Actinic keratosis 01/20/2007 03/11/2015 Other chronic [...] of this encounter (statuses as of 01/09/2022) [facility] of Past illness Narrative* Problem [...] 03/11/2015 Last Assessment & Plan: Dx. after [facility] 2009 Actinic keratosis 01/20/2007 03/11/2015 Other chronic [...] of this encounter (statuses as of 01/16/2022) [facility] of [facility] Narrative* Problem [...] 03/11/2015 Last Assessment & Plan: Dx. after [facility] 2010 Actinic keratosis 01/20/2007 03/11/2015 Other chronic [...] of this encounter (statuses as of 02/17/2022) [facility] of [facility] Narrative* Problem [...] 03/11/2015 Last Assessment & Plan: Dx. after [facility] 2009 Actinic keratosis 01/20/2007 03/11/2015 Other chronic [...] of this encounter (statuses as of 04/21/2022) [facility] of [facility] Narrative* Problem [...] 03/11/2015 Last Assessment & Plan: Dx. after [facility] 2009 Actinic keratosis 01/20/2007 03/11/2015 Other chronic [...] of this encounter (statuses as of 05/03/2022) [facility] of [facility] Narrative* Problem [...] 03/11/2015 Last Assessment & Plan: Dx. after [facility] 2009 Actinic keratosis 01/20/2007 03/11/2015 Other chronic [...] of this encounter (statuses as of 06/02/2022) [facility] of [facility] Narrative* Problem [...] 03/11/2015 Last Assessment & Plan: Dx. after [facility] 2010 Actinic keratosis 01/20/2007 03/11/2015 Other chronic [...] of this encounter (statuses as of 06/04/2022) [facility] Narrative* Problem [...] 03/11/2015 Last Assessment & Plan: Dx. after [facility] 2009 Actinic keratosis 01/20/2007 03/11/2015 Other chronic [...] of this encounter (statuses as of 06/08/2022) [facility] Narrative* Problem [...] 03/11/2015 Last Assessment & Plan: Dx. after [facility] 2009 Actinic keratosis 01/20/2007 03/11/2015 Other chronic [...] of this encounter (statuses as of 06/10/2022) [facility] Narrative* Problem [...] 03/11/2015 Last Assessment & Plan: Dx. after [facility] 2009 Actinic keratosis 01/20/2007 03/11/2015 Other chronic [...] of this encounter (statuses as of 06/23/2022) [facility] Narrative* Problem [...] 03/11/2015 Last Assessment & Plan: Dx. after [facility] 2009 Actinic keratosis 01/20/2007 03/11/2015 Other chronic [...] of this encounter (statuses as of 06/30/2022) [facility] Narrative* Problem [...] 03/11/2015 Last Assessment & Plan: Dx. after [facility] 2009 Actinic keratosis 01/20/2007 03/11/2015 Other chronic [...] of this encounter (statuses as of 10/01/2022) [facility] Narrative* Problem [...] 03/11/2015 Last Assessment & Plan: Dx. after [facility] 2009 Actinic keratosis 01/20/2007 03/11/2015 Other chronic [...] of this encounter (statuses as of 12/23/2022) [facility] Narrative* Problem [...] 03/11/2015 Last Assessment & Plan: Dx. after [facility] 2010 Actinic keratosis 01/20/2007 03/11/2015 Other chronic [...] of this encounter (statuses as of 12/29/2022) [facility] Narrative* Problem [...] 03/11/2015 Last Assessment & Plan: Dx. after [facility] 2009 Actinic keratosis 01/20/2007 03/11/2015 Other chronic [...] of this encounter (statuses as of 12/31/2022) [facility] Narrative* Problem [...] 03/11/2015 Last Assessment & Plan: Dx. after [facility] 2009 Actinic keratosis 01/20/2007 03/11/2015 Other chronic [...] of this encounter (statuses as of 01/11/2023) [facility] Narrative* Problem [...] 03/11/2015 Last Assessment & Plan: Dx. after [facility] 2009 Actinic keratosis 01/20/2007 03/11/2015 Other chronic [...] of this encounter (statuses as of 03/07/2023) [facility] Narrative* Problem [...] 03/11/2015 Last Assessment & Plan: Dx. after [facility] 2009 Actinic keratosis 01/20/2007 03/11/2015 Other chronic [...] of this encounter (statuses as of 04/02/2023) [facility] Narrative* Problem [...] 03/11/2015 Last Assessment & Plan: Dx. after [facility] 2009 Actinic keratosis 01/20/2007 03/11/2015 Other chronic [...] of this encounter (statuses as of 04/08/2023) [facility] HospitalDischarge summary Author Waleska Phillips [facility] Note Date/Time December 03, 2024 2:5 5pm [facility] Medical Records Department [address] [place] [address] Instructions for Home/Discharge Instructions 12/03/24 1438 MR#: [id number] Acct: [id number] Name: MICHAEL MEIER Rep #:[id number] 3 : 1940 84 From: Waleska Phillips [...] schedule an appointment for your tremors (ph [phone]) -Please call your primary care provider's office [...] can be placed): Inpatient Rehab Unit/Facility 12/03/24 4915<Electronically signed by Waleska Phillips MD>Waleska Phillips MD CC: Dr. Tacho Davis DO; Dr. Michael Puga DO; Dr. Jonny Vicente MD ~ Signed [facility] Work Phone: Evaluation note* Diagnosis Urinary frequency- Primary Glucosuria Glycosuria [facility] Diagnosis Gastroesophageal reflux disease with esophagitis without hemorrhage- Primary [facility]* Diagnosis Gastroesophageal reflux disease, unspecified whether esophagitis present- Primary Gastroesophageal reflux disease with esophagitis without hemorrhage [facility]* Diagnosis Gastroesophageal reflux disease with esophagitis without hemorrhage- Primary [facility]* Diagnosis Dysthymia- Primary Dysthymic disorder Need for influenza vaccination Need for prophylactic vaccination and inoculation against influenza Arthritis, multiple joint involvement Unspecified arthropathy, multiple sites IFG (impaired fasting glucose) Impaired fasting glucose Obesity, Class II, BMI 35-39.9 Obesity, unspecified Fatigue, unspecified type Iron deficiency Iron deficiency anemia, unspecified [facility]* Diagnosis Dysthymia- Primary Dysthymic disorder Situational insomnia Transient disorder of initiating or maintaining sleep Arthritis, multiple joint involvement Unspecified arthropathy, multiple sites IFG (impaired fasting glucose) Impaired fasting glucose Obesity, Class II, BMI 35-39.9 Obesity, unspecified Fatigue, unspecified type Iron deficiency Iron deficiency anemia, unspecified [facility]* Diagnosis Fatigue, unspecified type- Primary SOB (shortness of breath) on exertion Shortness of breath Hyperlipidemia, unspecified hyperlipidemia type Obesity, Class II, BMI 35-39.9 Obesity, unspecified IFG (impaired fasting glucose) Impaired fasting glucose Iron deficiency anemia, unspecified iron deficiency anemia type Vitamin D deficiency Unspecified vitamin D deficiency Bilateral leg edema Edema Primary hypertension Unspecified essential hypertension [facility]* Diagnosis Iron deficiency- Primary Iron deficiency [...] arthropathy, multiple sites [facility]* Diagnosis Situational insomnia Transient disorder of initiating or maintaining sleep Situational mixed anxiety and depressive disorder Adjustment disorder with mixed anxiety and depressed mood [facility]* Diagnosis TIA (transient ischemic attack) Unspecified transient cerebral ischemia Hyperlipidemia, unspecified hyperlipidemia type Anxiety Anxiety state, unspecified documented in this encounter [facility] note* Diagnosis WELCH (dyspnea on exertion)- Primary Other dyspnea and respiratory abnormality Fatigue, unspecified type Obesity, Class II, BMI 35-39.9 Obesity, unspecified IFG (impaired fasting glucose) Impaired fasting glucose Vitamin B12 deficiency Other B-complex deficiencies Primary hypertension Unspecified essential hypertension Disorder of carotid artery (HCC) Unspecified disorders of arteries and arterioles documented [facility] Diagnosis WELCH (dyspnea on exertion) Other dyspnea and respiratory abnormality [facility]* Diagnosis Obstructive lung disease (HCC)- Primary Chronic airway obstruction, not elsewhere classified WELCH (dyspnea on exertion) Other dyspnea and respiratory abnormality [facility]* Diagnosis Fatigue, unspecified type- Primary [facility] Diagnosis WELCH (dyspnea on exertion) Other dyspnea and respiratory abnormality [facility]* Diagnosis Subclinical hypothyroidism- Primary Other specified [...] trunk, except scrotum [facility] Diagnosis Diarrhea, unspecified type- Primary [facility]* Diagnosis Hospital discharge follow-up- Primary Other [...] Unspecified essential hypertension [facility]* Diagnosis Situational insomnia Transient disorder of initiating or maintaining sleep Situational mixed anxiety and depressive disorder Adjustment disorder with mixed anxiety and depressed mood [facility] Diagnosis Chronic respiratory failure with hypoxia (HCC)- Primary Chronic respiratory failure Sleep disturbances Sleep disturbance, unspecified [facility] Diagnosis Weakness- Primary Other malaise and fatigue Difficulty walking Difficulty in walking Imbalance Abnormality of gait [facility] Diagnosis Weakness- Primary Other malaise and fatigue Difficulty walking Difficulty in walking Imbalance Abnormality of gait [facility] Diagnosis Weakness- Primary Other malaise and fatigue Difficulty walking Difficulty in walking Imbalance Abnormality of gait [facility] Diagnosis Acute bronchitis, unspecified organism- Primary [...] trunk, except scrotum [facility] Weakness- Primary Other malaise and fatigue [facility] Diagnosis Weakness- Primary Other malaise and fatigue Difficulty walking Difficulty in walking Imbalance Abnormality of gait [facility]* Diagnosis Arthritis, multiple joint involvement- Primary Unspecified arthropathy, multiple sites Spinal stenosis of lumbar region without neurogenic claudication Spinal stenosis, lumbar region, without neurogenic claudication [facility]* Diagnosis Weakness- Primary Other malaise and fatigue Imbalance Abnormality of gait Difficulty walking Difficulty in walking [facility] Diagnosis Weakness- Primary Other malaise and fatigue Imbalance Abnormality of gait [facility] Diagnosis Weakness- Primary Other malaise and fatigue Imbalance Abnormality of gait Difficulty walking Difficulty in walking [facility] Diagnosis Weakness- Primary Other malaise and fatigue Imbalance Abnormality of gait Difficulty walking Difficulty in walking [facility] Diagnosis Weakness- Primary Other malaise and fatigue Imbalance Abnormality of gait [facility]* Diagnosis Difficulty walking- Primary Difficulty in walking Imbalance Abnormality of gait Weakness Other malaise and fatigue [facility] Diagnosis Arthritis, multiple joint involvement- Primary Unspecified arthropathy, multiple sites Anxiety Anxiety state, unspecified Need for influenza vaccination Need for prophylactic vaccination and inoculation against influenza Epigastric abdominal pain Abdominal pain, epigastric Obstructive lung disease (HCC) Chronic airway obstruction, not elsewhere classified Gait abnormality Abnormality of gait Imbalance Abnormality of gait [facility] Diagnosis Difficulty walking- Primary Difficulty in walking Imbalance Abnormality of gait Weakness Other malaise and fatigue [facility] Diagnosis Epigastric abdominal pain- Primary Abdominal pain, epigastric Pulmonary hypertension (HCC) Other chronic pulmonary heart diseases [facility] Diagnosis Difficulty walking- Primary Difficulty in walking Imbalance Abnormality of gait Weakness Other malaise and fatigue [facility] Diagnosis Difficulty walking- Primary Difficulty in walking Imbalance Abnormality of gait Weakness Other malaise and fatigue [facility] Diagnosis Difficulty walking- Primary Difficulty in walking Imbalance Abnormality of gait Weakness Other malaise and fatigue [facility]* Diagnosis Pre-operative examination- Primary Preoperative examination, unspecified JOSE on CPAP Obstructive sleep apnea (adult) (pediatric) Obstructive lung disease (HCC) Chronic airway obstruction, not elsewhere classified Primary hypertension Unspecified essential hypertension Hyperlipidemia, unspecified hyperlipidemia type Cardiac resynchronization therapy pacemaker (SURGICAL SERVICES COORDINATOR-P) in place Paroxysmal atrial fibrillation (HCC) [...] EST Associated Problem(s): Cardiac resynchronization therapy pacemaker (SURGICAL SERVICES COORDINATOR-P) in place Assessment: s/p 10/2021 ICD [...] Assessment: c/w CPAP [facility]* Diagnosis Pre-operative examination- Primary Preoperative examination, unspecified JOSE on CPAP Obstructive sleep apnea (adult) (pediatric) Obstructive lung disease (HCC) Chronic airway obstruction, not elsewhere classified Primary hypertension Unspecified essential hypertension Hyperlipidemia, unspecified hyperlipidemia type Cardiac resynchronization therapy pacemaker (SURGICAL SERVICES COORDINATOR-P) in place Paroxysmal atrial fibrillation (HCC) [...] pulmonary heart diseases [facility]* Diagnosis Pre-operative examination- Primary Preoperative examination, unspecified JOSE on CPAP Obstructive sleep apnea (adult) (pediatric) Obstructive lung disease (HCC) Chronic airway obstruction, not elsewhere classified Primary hypertension Unspecified essential hypertension Hyperlipidemia, unspecified hyperlipidemia type Cardiac resynchronization therapy pacemaker (SURGICAL SERVICES COORDINATOR-P) in place Paroxysmal atrial fibrillation (HCC) [...] without bleeding- Primary [facility]* Diagnosis Pre-operative examination- Primary Preoperative examination, unspecified JOSE on CPAP Obstructive sleep apnea (adult) (pediatric) Obstructive lung disease (HCC) Chronic airway obstruction, not elsewhere classified Primary hypertension Unspecified essential hypertension Hyperlipidemia, unspecified hyperlipidemia type Cardiac resynchronization therapy pacemaker (SURGICAL SERVICES COORDINATOR-P) in place Paroxysmal atrial fibrillation (HCC) [...] malaise and fatigue [facility]* Diagnosis Pre-operative examination- Primary Preoperative examination, unspecified JOSE on CPAP Obstructive sleep apnea (adult) (pediatric) Obstructive lung disease (HCC) Chronic airway obstruction, not elsewhere classified Primary hypertension Unspecified essential hypertension Hyperlipidemia, unspecified hyperlipidemia type Cardiac resynchronization therapy pacemaker (SURGICAL SERVICES COORDINATOR-P) in place Paroxysmal atrial fibrillation (HCC) [...] gait documented in this encounter [facility] note* Diagnosis Pre-operative examination- Primary Preoperative examination, unspecified JOSE on CPAP Obstructive sleep apnea (adult) (pediatric) Obstructive lung disease (HCC) Chronic airway obstruction, not elsewhere classified Primary hypertension Unspecified essential hypertension Hyperlipidemia, unspecified hyperlipidemia type Cardiac resynchronization therapy pacemaker (SURGICAL SERVICES COORDINATOR-P) in place Paroxysmal atrial fibrillation (HCC) [...] mood documented in this encounter [facility] note* Diagnosis Pre-operative examination- Primary Preoperative examination, unspecified JOSE on CPAP Obstructive sleep apnea (adult) (pediatric) Obstructive lung disease (HCC) Chronic airway obstruction, not elsewhere classified Primary hypertension Unspecified essential hypertension Hyperlipidemia, unspecified hyperlipidemia type Cardiac resynchronization therapy pacemaker (SURGICAL SERVICES COORDINATOR-P) in place Paroxysmal atrial fibrillation (HCC) [...] legs syndrome (RLS) documented in this encounter [facility] note* Diagnosis Pre-operative examination- Primary Preoperative examination, unspecified JOSE on CPAP Obstructive sleep apnea (adult) (pediatric) Obstructive lung disease (HCC) Chronic airway obstruction, not elsewhere classified Primary hypertension Unspecified essential hypertension Hyperlipidemia, unspecified hyperlipidemia type Cardiac resynchronization therapy pacemaker (SURGICAL SERVICES COORDINATOR-P) in place Paroxysmal atrial fibrillation (HCC) [...] Anxiety state, unspecified documented in this encounter [facility] note* Diagnosis Pre-operative examination- Primary Preoperative examination, unspecified JOSE on CPAP Obstructive sleep apnea (adult) (pediatric) Obstructive lung disease (HCC) Chronic airway obstruction, not elsewhere classified Primary hypertension Unspecified essential hypertension Hyperlipidemia, unspecified hyperlipidemia type Cardiac resynchronization therapy pacemaker (SURGICAL SERVICES COORDINATOR-P) in place Paroxysmal atrial fibrillation (HCC) [...] failure type (HCC) documented in this encounter [facility] note* Diagnosis Pre-operative examination- Primary Preoperative examination, unspecified JOSE on CPAP Obstructive sleep apnea (adult) (pediatric) Obstructive lung disease (HCC) Chronic airway obstruction, not elsewhere classified Primary hypertension Unspecified essential hypertension Hyperlipidemia, unspecified hyperlipidemia type Cardiac resynchronization therapy pacemaker (SURGICAL SERVICES COORDINATOR-P) in place Paroxysmal atrial fibrillation (HCC) [...] type (HCC) [facility] Diagnosis Pre-operative examination- Primary Preoperative examination, unspecified JOSE on CPAP Obstructive sleep apnea (adult) (pediatric) Obstructive lung disease (HCC) Chronic airway obstruction, not elsewhere classified Primary hypertension Unspecified essential hypertension Hyperlipidemia, unspecified hyperlipidemia type Cardiac resynchronization therapy pacemaker (SURGICAL SERVICES COORDINATOR-P) in place Paroxysmal atrial fibrillation (HCC) [...] arthropathy, multiple sites [facility] Diagnosis Pre-operative examination- Primary Preoperative examination, unspecified JOSE on CPAP Obstructive sleep apnea (adult) (pediatric) Obstructive lung disease (HCC) Chronic airway obstruction, not elsewhere classified Primary hypertension Unspecified essential hypertension Hyperlipidemia, unspecified hyperlipidemia type Cardiac resynchronization therapy pacemaker (SURGICAL SERVICES COORDINATOR-P) in place Paroxysmal atrial fibrillation (HCC) [...] diseases documented in this encounter [facility] note* Diagnosis Pre-operative examination- Primary Preoperative examination, unspecified JOSE on CPAP Obstructive sleep apnea (adult) (pediatric) Obstructive lung disease (HCC) Chronic airway obstruction, not elsewhere classified Primary hypertension Unspecified essential hypertension Hyperlipidemia, unspecified hyperlipidemia type Cardiac resynchronization therapy pacemaker (SURGICAL SERVICES COORDINATOR-P) in place Paroxysmal atrial fibrillation (HCC) [...] Chronic respiratory failure documented in this encounter [facility] note* Diagnosis Pre-operative examination- Primary Preoperative examination, unspecified JOSE on CPAP Obstructive sleep apnea (adult) (pediatric) Obstructive lung disease (HCC) Chronic airway obstruction, not elsewhere classified Primary hypertension Unspecified essential hypertension Hyperlipidemia, unspecified hyperlipidemia type Cardiac resynchronization therapy pacemaker (SURGICAL SERVICES COORDINATOR-P) in place Paroxysmal atrial fibrillation (HCC) [...] respiratory failure [facility] Diagnosis Pre-operative examination- Primary Preoperative examination, unspecified JOSE on CPAP Obstructive sleep apnea (adult) (pediatric) Obstructive lung disease (HCC) Chronic airway obstruction, not elsewhere classified Primary hypertension Unspecified essential hypertension Hyperlipidemia, unspecified hyperlipidemia type Cardiac resynchronization therapy pacemaker (SURGICAL SERVICES COORDINATOR-P) in place Paroxysmal atrial fibrillation (HCC) [...] sites documented in this encounter [facility] note* Diagnosis Pre-operative examination- Primary Preoperative examination, unspecified JOSE on CPAP Obstructive sleep apnea (adult) (pediatric) Obstructive lung disease (HCC) Chronic airway obstruction, not elsewhere classified Primary hypertension Unspecified essential hypertension Hyperlipidemia, unspecified hyperlipidemia type Cardiac resynchronization therapy pacemaker (SURGICAL SERVICES COORDINATOR-P) in place Paroxysmal atrial fibrillation (HCC) [...] Abnormality of gait [facility] Diagnosis Pre-operative examination- Primary Preoperative examination, unspecified JOSE on CPAP Obstructive sleep apnea (adult) (pediatric) Obstructive lung disease (HCC) Chronic airway obstruction, not elsewhere classified Primary hypertension Unspecified essential hypertension Hyperlipidemia, unspecified hyperlipidemia type Cardiac resynchronization therapy pacemaker (SURGICAL SERVICES COORDINATOR-P) in place Paroxysmal atrial fibrillation (HCC) [...] Abnormality of gait [facility] Diagnosis Pre-operative examination- Primary Preoperative examination, unspecified JOSE on CPAP Obstructive sleep apnea (adult) (pediatric) Obstructive lung disease (HCC) Chronic airway obstruction, not elsewhere classified Primary hypertension Unspecified essential hypertension Hyperlipidemia, unspecified hyperlipidemia type Cardiac resynchronization therapy pacemaker (SURGICAL SERVICES COORDINATOR-P) in place Paroxysmal atrial fibrillation (HCC) [...] gait documented in this encounter [facility] note* Diagnosis Pre-operative examination- Primary Preoperative examination, unspecified JOSE on CPAP Obstructive sleep apnea (adult) (pediatric) Obstructive lung disease (HCC) Chronic airway obstruction, not elsewhere classified Primary hypertension Unspecified essential hypertension Hyperlipidemia, unspecified hyperlipidemia type Cardiac resynchronization therapy pacemaker (SURGICAL SERVICES COORDINATOR-P) in place Paroxysmal atrial fibrillation (HCC) [...] gait documented in this encounter [facility] noteNo assessment information availableBlWestlake Outpatient [facility] Work Phone: Evaluation note* Diagnosis Onset Date Resolution Status Admit Date WELCH (dyspnea on exertion) acute November 02, 2024 9:16am long term current use of amiodarone acute November 02, 2024 9:16am Pulmonary hypertension acute Ju 2024 9:16am Right carotid bruit acute November 02, 2024 9:16am Essential (primary) hypertension chronic November 02, 2024 9:16am History of permanent cardiac pacemaker placement June 09, 2021 chronic J silvia 2024 9:16am Paroxysmal atrial fibrillation chronic November 02, 2024 9:16am [facility] Work Phone: Evaluation note* Diagnosis Pre-operative examination- Primary Preoperative examination, unspecified JOSE on CPAP Obstructive sleep apnea (adult) (pediatric) Obstructive lung disease (HCC) Chronic airway obstruction, not elsewhere classified Primary hypertension Unspecified essential hypertension Hyperlipidemia, unspecified hyperlipidemia type Cardiac resynchronization therapy pacemaker (SURGICAL SERVICES COORDINATOR-P) in place Paroxysmal atrial fibrillation (HCC) [...] Anxiety state, unspecified documented in this encounter [facility] note* Diagnosis Pre-operative examination- Primary Preoperative examination, unspecified JOSE on CPAP Obstructive sleep apnea (adult) (pediatric) Obstructive lung disease (HCC) Chronic airway obstruction, not elsewhere classified Primary hypertension Unspecified essential hypertension Hyperlipidemia, unspecified hyperlipidemia type Cardiac resynchronization therapy pacemaker (SURGICAL SERVICES COORDINATOR-P) in place Paroxysmal atrial fibrillation (HCC) [...] to schedule an appointment for your tremors ) -Please call your primary care provider's office upon discharge to schedule a hospital follow up within 1 week. -For any concerning signs or symptoms please call 911 or [facility] the [facility] Work Phone: Reason for referral (narrative)* Outpatient Procedure (Routine) - Authorized Specialty Diagnoses / Procedures Referred By Colton bond Referred To Contact [facility] Diagnoses Gastroesophageal reflux disease with esophagitis without hemorrhage Procedures EGD DIAGNOSTIC ESOPHAGOGASTRODUODENOSC OPY TRANSORAL DIAGNOSTIC Raymundo De León MD [address] [place] [address] [facility] [address] [place] [address] Referral ID Status Reason Start Date Expiration Date Visits Requested Visits Authorized [id number] Authorized Auto-Generat ed Referral 12/18/2021 12/18/2022 1 1 [facility] for referral (narrative)* Outpatient Procedure (Routine) - Closed Specialty Diagnoses / Procedures Referred By Colton bond Referred To Contact [facility] Diagnoses Gastroesophageal reflux disease with esophagitis without hemorrhage Procedures EGD DIAGNOSTIC ESOPHAGOGASTRODUODENOSC OPY TRANSORAL DIAGNOSTIC Raymundo De León MD [address] [place] [address] [facility] [place] [address] [place] [id number] Referral ID Status Reason Start Date Expiration Date V isits Requested Visits Authorized [id number] Closed Auto-Generate d Referral 12/18/2021 12/18/2022 1 1 [facility] for referral (narrative)* Outpatient Procedure (Routine) - Authorized Specialty Diagnoses / Procedures Referred By Contac t Referred To Contact [facility] Diagnoses SOB (shortness of breath) on exertion Procedures ECHO ECHO TTHRC R-T 2D W/WOM-MODE COMPL SPEC&COLR D Key Portillo APRN.PERFORMANCE IMPROVEMENT COORDINATOR [address] [place] [address] [address] Referral ID Status Reason Start Date Expiration Date Visits Requested Visits Authorized [id number] Authorized Auto-Generat ed Referral 06/04/2022 06/04/2023 1 1 * Outpatient Procedure (Routine) - Closed Specialty Diagnoses / Procedures Referred By Contac t Referred To Contact [facility] Diagnoses SOB (shortness of breath) on exertion Procedures ECG COMPLETE ECG ROUTINE ECG W/LEAST 12 LDS W/I&R Key Portillo APRN.PERFORMANCE IMPROVEMENT COORDINATOR [address] [place] [address] [place] [id number] Referral ID Status Reason Start Date Expiration Date V isits Requested Visits Authorized [id number] Closed Auto-Generate d Referral 06/04/2022 06/04/2023 1 1 [facility] for referral (narrative)* Outpatient Procedure (Routine) - Authorized Specialty Diagnoses / Procedures Referred By Contac t Referred To Contact [facility] Diagnoses WELCH (dyspnea on exertion) Procedures SPIROMETRY - BASELINE AND POST DILATOR BRNCDILAT RSPSE SPMTRY PRE&POST-BRNCDILAT ADMMichael Morrison, DO [address] [place] [address] [facility] [place] [address] [place] [id number] Referral ID Status Reason Start Date Expiration Date Visits Requested Visits Authorized [id number] Authorized Auto-Generat ed Referral 12/22/2022 01/21/2024 1 1 [facility] for referral (narrative)* Outpatient Procedure (Routine) - Authorized Specialty Diagnoses / Procedures Referred By Contac t Referred To Contact [facility] Diagnoses Epigastric abdominal pain Pulmonary hypertension (HCC) Procedures EGD DIAGNOSTIC ESOPHAGOGASTRODUODENOSCO PY TRANSORAL DIAGNOSTIC Sharon Jarrett APRN.PERFORMANCE IMPROVEMENT COORDINATOR [address] [place] [address] [facility] [place] [address] [place] [address] Referral ID Status Reason Start Date Expiration Date Visits Requested Visits Authorized [id number] Authorized Auto-Generat ed Referral 03/13/2025 1 1 [facility] for referral (narrative)* Outpatient Procedure (Routine) - Closed Specialty Diagnoses / Procedures Referred By Contac t Referred To Contact [facility] Diagnoses Epigastric abdominal pain Pulmonary hypertension (HCC) Procedures EGD DIAGNOSTIC ESOPHAGOGASTRODUODENOSCO PY TRANSORAL DIAGNOSTIC Sharon Jarrett APRN.PERFORMANCE IMPROVEMENT COORDINATOR [address] [place] [address] [facility] [address] [address] Referral ID Status Reason Start Date Expiration Date V isits Requested Visits Authorized [id number] Closed Auto-Generate d Referral 03/13/2024 03/13/2025 1 1 [facility] for referral (narrative)No reason for referral information availableWMemorial Hospital Work Phone: Reason for visit Narrative* Outpatient Procedure (Routine) - Closed Specialty Diagnoses / Procedures Referred By Contac t Referred To Contact [facility] Diagnoses Gastroesophageal reflux disease with esophagitis without hemorrhage Procedures EGD DIAGNOSTIC ESOPHAGOGASTRODUODENOSC OPY TRANSORAL DIAGNOSTIC Raymundo De León MD [address] [place] [address] [place] [phone] Referral ID Status Reason Start Date Expiration Date V isits Requested Visits Authorized [id number] Closed Auto-Generate d Referral 12/18/2021 12/18/2022 1 1 [facility] N[facility]* Outpatient Procedure (Routine) - Closed Specialty Diagnoses / Procedures Referred By Colton bond Referred To Contact [facility] Diagnoses Epigastric abdominal pain Pulmonary hypertension (HCC) Procedures EGD DIAGNOSTIC ESOPHAGOGASTRODUODENOSCO PY TRANSORAL DIAGNOSTIC Sharon Jarrett APRN.CNP [address] [facility] [place] [address] [address] Referral ID Status Reason Start Date Expiration Date V isits Requested Visits Authorized [id number] Closed Auto-Generate d Referral 03/13/2024 03/13/2025 1 1 [facility] Summary Purpose Family History Relationship Condition Age at Onset Recorded Date/T burt grandfather Myocardial infarction Unknown Sudden cardiac Unknown father Myocardial infarction Unknown Coronary artery disease Unknown Congestive heart failure Unknown mother Myocardial infarction Unknown Atrial fibrillation Unknown brother Atrial fibrillation Unknown brother Malignant neoplasm Unknown son Diabetes mellitus Unknown son Hypertension Unknown Advance Directives Documents on File Type Date Recorded Patient Coupon Clerk Expl anation Advance Directive(s) 10/17/2020 9:40 AM Advance Directive(s) 06/29/2017 10:43 AM Advance Directive(s) 06/29/2017 6:40 AM Advance Directive Response Recorded Date/ Time Advance Directives Yes June 09, 2021 11:35am Living Will Yes June 09 11:35am Power of Car Pre Cooler Yes June 09, 2021 11:35am Documents on File Type Date Recorded Patient Coupon Clerk Expl anation Advance Directive(s) 06/29/2017 6:40 AM Documents on File Type Date Recorded Patient Coupon Clerk Expl anation Advance Directive(s) 06/29/2017 6:40 AM Advance Directive Response Recorded Date/ Time Living Will Yes September 28, 2023 1 2:26am Power of Car Pre Cooler Yes September 28, 2023 12:26am Living Will Yes April 30, 024 11:40am Power of Car Pre Cooler Yes April 30, 2024 11:40am Name of Medical Power of Car Pre Cooler Yumiko Elena, daughter April 30, 2024 11:40am Advance Directives Yes June 09, 2021 11:35am Advance Directive Response Recorded Date/ Time Living Will Yes September 28, 2023 1 2:26am Do you have a Healthcare Pow er of Car Pre Cooler? Yes September 28, 2023 12:26am Living Will Yes April 30 11:40am Do you have a Healthcare Pow er of Car Pre Cooler? Yes April 30, 2024 11:40am Name of Medical Power of Car Pre Cooler Yumiko Elena, daughter April 30, 2024 11:40am Advance Directives Yes June 09, 2021 11:35am Advance Directive Response Recorded Date/ Time Advance Directives Yes June 09, 2021 11:35am Advance Directive Response Recorded Date/ Time Do you have a Healthcare Power of Car Pre Cooler? Yes November 29, 2024 4:45pm Advance Directives Yes June 09, 2021 11:35am Advance Directive Response Recorded Date/ Time Do you have a Healthcare Power of Car Pre Cooler? Yes November 29, 2024 11:07pm Advance Directives [...] June 16, 2024 9:59am [id number] - Other terminal supervisor (current) drug therapy June 22, 2024 8:30am BRUIT July 03, 2024 12:4 1pm EORDER July 07, 2024 2:49 pm Reason for Visit Admit Date CHF (congestive heart failure) April 30, 2024 9:27am Hypoxia April 30, 2024 9:27am History of permanent cardiac pacemaker p lacement June 01, 2024 12:59pm Paroxysmal atrial fibrillation May 052024 12:59pm Sick sinus syndrome June 01, 2024 1 2:59pm long term current use of amiodarone Dewayne bhagat 2024 [...] (dyspnea on exertion) November 02, 2024 9:16am long term current use of amiodarone November 02, 2024 [...] Date Dose Rate Site benzocaine 20% 1 Hamilton (TOPEX) 1 Hamilton, TOPICAL, DIRECTED, Starting on Kaye 01/08/22 at [...] Procedures CONSULT TO GENERAL SURGERY OFFICE/OUTPATIENT [facility] 60 MINUTES Michael Puga L, DO [address] [place] [address] Referral ID Status Reason Start Date Expiration Date Visits Requested Visits Authorized [id number] Authorized PCP Requested Referral 4 03/01/2025 1 [...] section and content) DATE CREATED AUTHOR 12/28/[address] [facility] DATE CREATED AUTHOR AUTHOR'S ORGANIZ ATION 04/06/2024 [facility] DATE CREATED AUTHOR AUTHOR'S ORGANIZ ATION 10/28/2024 [facility] DATE CREATED AUTHOR AUTHOR'S ORGANIZ ATION 11/16/2024 [facility] DATE CREATED AUTHOR AUTHOR'S ORGANIZ ATION 12/01/2024 [facility] Source Comments (unrecognize d section and content) In the event this informatio n is protected by the Federal Confidentiality of Alcohol and Drug Abuse Patient Records regulations: The Federal rules restrict any use of the information to criminally investigate or prosecute any alcohol or drug abuse patient.[facility] the event this information is protected by the Federal Confidentiality of Alcohol and Drug Abuse Patient Records regulations: The Federal rules restrict any use of the information to criminally investigate or prosecute any alcohol or drug abuse patient.[facility] HospitalIn the event this information is protected by the Federal Confidentiality of Alcohol and Drug Abuse Patient Records regulations: The Federal rules restrict any use of the information to criminally investigate or prosecute any alcohol or drug abuse patient.[facility] HospitalIn the event this information is protected by the Federal Confidentiality of Alcohol and Drug Abuse Patient Records regulations: The Federal rules restrict any use of the information to criminally investigate or prosecute any alcohol or drug abuse patient.[facility] Hospital[facility] the event this information is protected by the Federal Confidentiality of Alcohol and Drug Abuse Patient Records regulations: The Federal rules restrict any use of the information to criminally investigate or prosecute any alcohol or drug abuse patient.[facility] HospitalIn the event this information is protected by the Federal Confidentiality of Alcohol and Drug Abuse Patient Records regulations: The Federal rules restrict any use of the information to criminally investigate or prosecute any alcohol or drug abuse patient.[facility] HospitalIn the event this information is protected by the Federal Confidentiality of Alcohol and Drug Abuse Patient Records regulations: The Federal rules restrict any use of the information to criminally investigate or prosecute any alcohol or drug abuse patient.[facility] HospitalIn the event this information is protected by the Federal Confidentiality of Alcohol and Drug Abuse Patient Records regulations: The Federal rules restrict any use of the information to criminally investigate or prosecute any alcohol or drug abuse patient.[facility] HospitalIn the event this information is protected by the Federal Confidentiality of Alcohol and Drug Abuse Patient Records regulations: The Federal rules restrict any use of the information to criminally investigate or prosecute any alcohol or drug abuse patient.[facility] Hospital[facility] the event this information is protected by the Federal Confidentiality of Alcohol and Drug Abuse Patient Records regulations: The Federal rules restrict any use of the information to criminally investigate or prosecute any alcohol or drug abuse patient.[facility] HospitalIn the event this information is protected by the Federal Confidentiality of Alcohol and Drug Abuse Patient Records regulations: The Federal rules restrict any use of the information to criminally investigate or prosecute any alcohol or drug abuse patient.[facility] HospitalIn the event this information is protected by the Federal Confidentiality of Alcohol and Drug Abuse Patient Records regulations: The Federal rules restrict any use of the information to criminally investigate or prosecute any alcohol or drug abuse patient.[facility] HospitalIn the event this information is protected by the Federal Confidentiality of Alcohol and Drug Abuse Patient Records regulations: The Federal rules restrict any use of the information to criminally investigate or prosecute any alcohol or drug abuse patient.[facility] HospitalIn the event this information is protected by the Federal Confidentiality of Alcohol and Drug Abuse Patient Records regulations: The Federal rules restrict any use of the information to criminally investigate or prosecute any alcohol or drug abuse patient.[facility] HospitalIn the event this information is protected by the Federal Confidentiality of Alcohol and Drug Abuse Patient Records regulations: The Federal rules restrict any use of the information to criminally investigate or prosecute any alcohol or drug abuse patient.[facility] HospitalIn the event this information is protected by the Federal Confidentiality of Alcohol and Drug Abuse Patient Records regulations: The Federal rules restrict any use of the information to criminally investigate or prosecute any alcohol or drug abuse patient.[facility] HospitalIn the event this information is protected by the Federal Confidentiality of Alcohol and Drug Abuse Patient Records regulations: The Federal rules restrict any use of the information to criminally investigate or prosecute any alcohol or drug abuse patient.[facility] HospitalIn the event this information is protected by the Federal Confidentiality of Alcohol and Drug Abuse Patient Records regulations: The Federal rules restrict any use of the information to criminally investigate or prosecute any alcohol or drug abuse patient.[facility] HospitalIn the event this information is protected by the Federal Confidentiality of Alcohol and Drug Abuse Patient Records regulations: The Federal rules restrict any use of the information to criminally investigate or prosecute any alcohol or drug abuse patient.[facility] HospitalIn the event this information is protected by the Federal Confidentiality of Alcohol and Drug Abuse Patient Records regulations: The Federal rules restrict any use of the information to criminally investigate or prosecute any alcohol or drug abuse patient.[facility] HospitalIn the event this information is protected by the Federal Confidentiality of Alcohol and Drug Abuse Patient Records regulations: The Federal rules restrict any use of the information to criminally investigate or prosecute any alcohol or drug abuse patient.[facility] HospitalIn the event this information is protected by the Federal Confidentiality of Alcohol and Drug Abuse Patient Records regulations: The Federal rules restrict any use of the information to criminally investigate or prosecute any alcohol or drug abuse patient.[facility] HospitalIn the event this information is protected by the Federal Confidentiality of Alcohol and Drug Abuse Patient Records regulations: The Federal rules restrict any use of the information to criminally investigate or prosecute any alcohol or drug abuse patient.[facility] HospitalIn the event this information is protected by the Federal Confidentiality of Alcohol and Drug Abuse Patient Records regulations: The Federal rules restrict any use of the information to criminally investigate or prosecute any alcohol or drug abuse patient.[facility] HospitalIn the event this information is protected by the Federal Confidentiality of Alcohol and Drug Abuse Patient Records regulations: The Federal rules restrict any use of the information to criminally investigate or prosecute any alcohol or drug abuse patient.[facility] HospitalIn the event this information is protected by the Federal Confidentiality of Alcohol and Drug Abuse Patient Records regulations: The Federal rules restrict any use of the information to criminally investigate or prosecute any alcohol or drug abuse patient.[facility] HospitalIn the event this information is protected by the Federal Confidentiality of Alcohol and Drug Abuse Patient Records regulations: The Federal rules restrict any use of the information to criminally investigate or prosecute any alcohol or drug abuse patient.[facility] HospitalIn the event this information is protected by the Federal Confidentiality of Alcohol and Drug Abuse Patient Records regulations: The Federal rules restrict any use of the information to criminally investigate or prosecute any alcohol or drug abuse patient.[facility] HospitalIn the event this information is protected by the Federal Confidentiality of Alcohol and Drug Abuse Patient Records regulations: The Federal rules restrict any use of the information to criminally investigate or prosecute any alcohol or drug abuse patient.[facility] HospitalIn the event this information is protected by the Federal Confidentiality of Alcohol and Drug Abuse Patient Records regulations: The Federal rules restrict any use of the information to criminally investigate or prosecute any alcohol or drug abuse patient.[facility] HospitalIn the event this information is protected by the Federal Confidentiality of Alcohol and Drug Abuse Patient Records regulations: The Federal rules restrict any use of the information to criminally investigate or prosecute any alcohol or drug abuse patient.[facility] HospitalIn the event this information is protected by the Federal Confidentiality of Alcohol and Drug Abuse Patient Records regulations: The Federal rules restrict any use of the information to criminally investigate or prosecute any alcohol or drug abuse patient.[facility] HospitalIn the event this information is protected by the Federal Confidentiality of Alcohol and Drug Abuse Patient Records regulations: The Federal rules restrict any use of the information to criminally investigate or prosecute any alcohol or drug abuse patient.[facility] HospitalIn the event this information is protected by the Federal Confidentiality of Alcohol and Drug Abuse Patient Records regulations: The Federal rules restrict any use of the information to criminally investigate or prosecute any alcohol or drug abuse patient.[facility] HospitalIn the event this information is protected by the Federal Confidentiality of Alcohol and Drug Abuse Patient Records regulations: The Federal rules restrict any use of the information to criminally investigate or prosecute any alcohol or drug abuse patient.[facility] HospitalIn the event this information is protected by the Federal Confidentiality of Alcohol and Drug Abuse Patient Records regulations: The Federal rules restrict any use of the information to criminally investigate or prosecute any alcohol or drug abuse patient.[facility] HospitalIn the event this information is protected by the Federal Confidentiality of Alcohol and Drug Abuse Patient Records regulations: The Federal rules restrict any use of the information to criminally investigate or prosecute any alcohol or drug abuse patient.[facility] HospitalIn the event this information is protected by the Federal Confidentiality of Alcohol and Drug Abuse Patient Records regulations: The Federal rules restrict any use of the information to criminally investigate or prosecute any alcohol or drug abuse patient.[facility] HospitalIn the event this information is protected by the Federal Confidentiality of Alcohol and Drug Abuse Patient Records regulations: The Federal rules restrict any use of the information to criminally investigate or prosecute any alcohol or drug abuse patient.[facility] HospitalIn the event this information is protected by the Federal Confidentiality of Alcohol and Drug Abuse Patient Records regulations: The Federal rules restrict any use of the information to criminally investigate or prosecute any alcohol or drug abuse patient.[facility] HospitalIn the event this information is protected by the Federal Confidentiality of Alcohol and Drug Abuse Patient Records regulations: The Federal rules restrict any use of the information to criminally investigate or prosecute any alcohol or drug abuse patient.[facility] HospitalIn the event this information is protected by the Federal Confidentiality of Alcohol and Drug Abuse Patient Records regulations: The Federal rules restrict any use of the information to criminally investigate or prosecute any alcohol or drug abuse patient.[facility] HospitalIn the event this information is protected by the Federal Confidentiality of Alcohol and Drug Abuse Patient Records regulations: The Federal rules restrict any use of the information to criminally investigate or prosecute any alcohol or drug abuse patient.[facility] HospitalIn the event this information is protected by the Federal Confidentiality of Alcohol and Drug Abuse Patient Records regulations: The Federal rules restrict any use of the information to criminally investigate or prosecute any alcohol or drug abuse patient.[facility] HospitalIn the event this information is protected by the Federal Confidentiality of Alcohol and Drug Abuse Patient Records regulations: The Federal rules restrict any use of the information to criminally investigate or prosecute any alcohol or drug abuse patient.[facility] HospitalIn the event this information is protected by the Federal Confidentiality of Alcohol and Drug Abuse Patient Records regulations: The Federal rules restrict any use of the information to criminally investigate or prosecute any alcohol or drug abuse patient.[facility] HospitalIn the event this information is protected by the Federal Confidentiality of Alcohol and Drug Abuse Patient Records regulations: The Federal rules restrict any use of the information to criminally investigate or prosecute any alcohol or drug abuse patient.[facility] HospitalIn the event this information is protected by the Federal Confidentiality of Alcohol and Drug Abuse Patient Records regulations: The Federal rules restrict any use of the information to criminally investigate or prosecute any alcohol or drug abuse patient.[facility] HospitalIn the event this information is protected by the Federal Confidentiality of Alcohol and Drug Abuse Patient Records regulations: The Federal rules restrict any use of the information to criminally investigate or prosecute any alcohol or drug abuse patient.[facility] HospitalIn the event this information is protected by the Federal Confidentiality of Alcohol and Drug Abuse Patient Records regulations: The Federal rules restrict any use of the information to criminally investigate or prosecute any alcohol or drug abuse patient.[facility] HospitalIn the event this information is protected by the Federal Confidentiality of Alcohol and Drug Abuse Patient Records regulations: The Federal rules restrict any use of the information to criminally investigate or prosecute any alcohol or drug abuse patient.[facility] HospitalIn the event this information is protected by the Federal Confidentiality of Alcohol and Drug Abuse Patient Records regulations: The Federal rules restrict any use of the information to criminally investigate or prosecute any alcohol or drug abuse patient.[facility] HospitalIn the event this information is protected by the Federal Confidentiality of Alcohol and Drug Abuse Patient Records regulations: The Federal rules restrict any use of the information to criminally investigate or prosecute any alcohol or drug abuse patient.[facility] HospitalIn the event this information is protected by the Federal Confidentiality of Alcohol and Drug Abuse Patient Records regulations: The Federal rules restrict any use of the information to criminally investigate or prosecute any alcohol or drug abuse patient.[facility] HospitalIn the event this information is protected by the Federal Confidentiality of Alcohol and Drug Abuse Patient Records regulations: The Federal rules restrict any use of the information to criminally investigate or prosecute any alcohol or drug abuse patient.[facility] HospitalIn the event this information is protected by the Federal Confidentiality of Alcohol and Drug Abuse Patient Records regulations: The Federal rules restrict any use of the information to criminally investigate or prosecute any alcohol or drug abuse patient.[facility] HospitalIn the event this information is protected by the Federal Confidentiality of Alcohol and Drug Abuse Patient Records regulations: The Federal rules restrict any use of the information to criminally investigate or prosecute any alcohol or drug abuse patient.[facility] HospitalIn the event this information is protected by the Federal Confidentiality of Alcohol and Drug Abuse Patient Records regulations: The Federal rules restrict any use of the information to criminally investigate or prosecute any alcohol or drug abuse patient.[facility] HospitalIn the event this information is protected by the Federal Confidentiality of Alcohol and Drug Abuse Patient Records regulations: The Federal rules restrict any use of the information to criminally investigate or prosecute any alcohol or drug abuse patient.[facility] HospitalIn the event this information is protected by the Federal Confidentiality of Alcohol and Drug Abuse Patient Records regulations: The Federal rules restrict any use of the information to criminally investigate or prosecute any alcohol or drug abuse patient.[facility] HospitalIn the event this information is protected by the Federal Confidentiality of Alcohol and Drug Abuse Patient Records regulations: The Federal rules restrict any use of the information to criminally investigate or prosecute any alcohol or drug abuse patient.[facility] HospitalIn the event this information is protected by the Federal Confidentiality of Alcohol and Drug Abuse Patient Records regulations: The Federal rules restrict any use of the information to criminally investigate or prosecute any alcohol or drug abuse patient.[facility] HospitalIn the event this information is protected by the Federal Confidentiality of Alcohol and Drug Abuse Patient Records regulations: The Federal rules restrict any use of the information to criminally investigate or prosecute any alcohol or drug abuse patient.[facility] HospitalIn the event this information is protected by the Federal Confidentiality of Alcohol and Drug Abuse Patient Records regulations: The Federal rules restrict any use of the information to criminally investigate or prosecute any alcohol or drug abuse patient.[facility] HospitalIn the event this information is protected by the Federal Confidentiality of Alcohol and Drug Abuse Patient Records regulations: The Federal rules restrict any use of the information to criminally investigate or prosecute any alcohol or drug abuse patient.[facility] HospitalIn the event this information is protected by the Federal Confidentiality of Alcohol and Drug Abuse Patient Records regulations: The Federal rules restrict any use of the information to criminally investigate or prosecute any alcohol or drug abuse patient.[facility] HospitalIn the event this information is protected by the Federal Confidentiality of Alcohol and Drug Abuse Patient Records regulations: The Federal rules restrict any use of the information to criminally investigate or prosecute any alcohol or drug abuse patient.[facility] HospitalIn the event this information is protected by the Federal Confidentiality of Alcohol and Drug Abuse Patient Records regulations: The Federal rules restrict any use of the information to criminally investigate or prosecute any alcohol or drug abuse patient.[facility] HospitalIn the event this information is protected by the Federal Confidentiality of Alcohol and Drug Abuse Patient Records regulations: The Federal rules restrict any use of the information to criminally investigate or prosecute any alcohol or drug abuse patient.[facility] HospitalIn the event this information is protected by the Federal Confidentiality of Alcohol and Drug Abuse Patient Records regulations: The Federal rules restrict any use of the information to criminally investigate or prosecute any alcohol or drug abuse patient.[facility] HospitalIn the event this information is protected by the Federal Confidentiality of Alcohol and Drug Abuse Patient Records regulations: The Federal rules restrict any use of the information to criminally investigate or prosecute any alcohol or drug abuse patient.[facility] HospitalIn the event this information is protected by the Federal Confidentiality of Alcohol and Drug Abuse Patient Records regulations: The Federal rules restrict any use of the information to criminally investigate or prosecute any alcohol or drug abuse patient.[facility] HospitalIn the event this information is protected by the Federal Confidentiality of Alcohol and Drug Abuse Patient Records regulations: The Federal rules restrict any use of the information to criminally investigate or prosecute any alcohol or drug abuse patient.[facility] HospitalIn the event this information is protected by the Federal Confidentiality of Alcohol and Drug Abuse Patient Records regulations: The Federal rules restrict any use of the information to criminally investigate or prosecute any alcohol or drug abuse patient.[facility] HospitalIn the event this information is protected by the Federal Confidentiality of Alcohol and Drug Abuse Patient Records regulations: The Federal rules restrict any use of the information to criminally investigate or prosecute any alcohol or drug abuse patient.[facility] HospitalIn the event this information is protected by the Federal Confidentiality of Alcohol and Drug Abuse Patient Records regulations: The Federal rules restrict any use of the information to criminally investigate or prosecute any alcohol or drug abuse patient.[facility] HospitalIn the event this information is protected by the Federal Confidentiality of Alcohol and Drug Abuse Patient Records regulations: The Federal rules restrict any use of the information to criminally investigate or prosecute any alcohol or drug abuse patient.[facility] HospitalIn the event this information is protected by the Federal Confidentiality of Alcohol and Drug Abuse Patient Records regulations: The Federal rules restrict any use of the information to criminally investigate or prosecute any alcohol or drug abuse patient.[facility] HospitalIn the event this information is protected by the Federal Confidentiality of Alcohol and Drug Abuse Patient Records regulations: The Federal rules restrict any use of the information to criminally investigate or prosecute any alcohol or drug abuse patient.[facility] HospitalIn the event this information is protected by the Federal Confidentiality of Alcohol and Drug Abuse Patient Records regulations: The Federal rules restrict any use of the information to criminally investigate or prosecute any alcohol or drug abuse patient.[facility] HospitalIn the event this information is protected by the Federal Confidentiality of Alcohol and Drug Abuse Patient Records regulations: The Federal rules restrict any use of the information to criminally investigate or prosecute any alcohol or drug abuse patient.[facility] HospitalIn the event this information is protected by the Federal Confidentiality of Alcohol and Drug Abuse Patient Records regulations: The Federal rules restrict any use of the information to criminally investigate or prosecute any alcohol or drug abuse patient.[facility] HospitalIn the event this information is protected by the Federal Confidentiality of Alcohol and Drug Abuse Patient Records regulations: The Federal rules restrict any use of the information to criminally investigate or prosecute any alcohol or drug abuse patient.[facility] HospitalIn the event this information is protected by the Federal Confidentiality of Alcohol and Drug Abuse Patient Records regulations: The Federal rules restrict any use of the information to criminally investigate or prosecute any alcohol or drug abuse patient.[facility] HospitalIn the event this information is protected by the Federal Confidentiality of Alcohol and Drug Abuse Patient Records regulations: The Federal rules restrict any use of the information to criminally investigate or prosecute any alcohol or drug abuse patient.[facility] HospitalIn the event this information is protected by the Federal Confidentiality of Alcohol and Drug Abuse Patient Records regulations: The Federal rules restrict any use of the information to criminally investigate or prosecute any alcohol or drug abuse patient.[facility] HospitalIn the event this information is protected by the Federal Confidentiality of Alcohol and Drug Abuse Patient Records regulations: The Federal rules restrict any use of the information to criminally investigate or prosecute any alcohol or drug abuse patient.[facility] HospitalIn the event this information is protected by the Federal Confidentiality of Alcohol and Drug Abuse Patient Records regulations: The Federal rules restrict any use of the information to criminally investigate or prosecute any alcohol or drug abuse patient.[facility] HospitalIn the event this information is protected by the Federal Confidentiality of Alcohol and Drug Abuse Patient Records regulations: The Federal rules restrict any use of the information to criminally investigate or prosecute any alcohol or drug abuse patient.[facility] HospitalIn the event this information is protected by the Federal Confidentiality of Alcohol and Drug Abuse Patient Records regulations: The Federal rules restrict any use of the information to criminally investigate or prosecute any alcohol or drug abuse patient.[facility] HospitalIn the event this information is protected by the Federal Confidentiality of Alcohol and Drug Abuse Patient Records regulations: The Federal rules restrict any use of the information to criminally investigate or prosecute any alcohol or drug abuse patient.[facility] HospitalIn the event this information is protected by the Federal Confidentiality of Alcohol and Drug Abuse Patient Records regulations: The Federal rules restrict any use of the information to criminally investigate or prosecute any alcohol or drug abuse patient.[facility] HospitalIn the event this information is protected by the Federal Confidentiality of Alcohol and Drug Abuse Patient Records regulations: The Federal rules restrict any use of the information to criminally investigate or prosecute any alcohol or drug abuse patient.[facility] HospitalIn the event this information is protected by the Federal Confidentiality of Alcohol and Drug Abuse Patient Records regulations: The Federal rules restrict any use of the information to criminally investigate or prosecute any alcohol or drug abuse patient.[facility] HospitalIn the event this information is protected by the Federal Confidentiality of Alcohol and Drug Abuse Patient Records regulations: The Federal rules restrict any use of the information to criminally investigate or prosecute any alcohol or drug abuse patient.[facility] HospitalIn the event this information is protected by the Federal Confidentiality of Alcohol and Drug Abuse Patient Records regulations: The Federal rules restrict any use of the information to criminally investigate or prosecute any alcohol or drug abuse patient.[facility] HospitalIn the event this information is protected by the Federal Confidentiality of Alcohol and Drug Abuse Patient Records regulations: The Federal rules restrict any use of the information to criminally investigate or prosecute any alcohol or drug abuse patient.[facility] HospitalIn the event this information is protected by the Federal Confidentiality of Alcohol and Drug Abuse Patient Records regulations: The Federal rules restrict any use of the information to criminally investigate or prosecute any alcohol or drug abuse patient.[facility] Reason for Visit (unrecogniz ed section and content) Reason Comments PT Eval Specialty Diagnoses / Procedures Referred By Contac t Referred To Contact Physical Therapy / PHYSICAL THERAPY Diagnoses CONSULT/WEAKNESS Procedures NEW RS PT ORTH Arlene Bruce MD [email or web address] [place] [address] Phone: tel: fax: Sarah Merchant, PT [address] [place] [address] Phone: tel: Referral ID Status Reason Start Date Expiration Date V isits Requested Visits Authorized [id number] Authorized 09/07/2024 05/02/2025 99 99 Reason Comments Physical Therapy Specialty Diagnoses / Procedures Referred By Contac t Referred To Contact Physical Therapy / PHYSICAL THERAPY Diagnoses Right knee Procedures NEW RS PT ORTH Geeta Grimaldo PA-C [email or web address] [place] [address] Sarah Merchant, PT [address] [place] [address] Referral ID Status Reason Start Date Expiration Date V isits Requested Visits Authorized [id number] Authorized 11/15/2023 05/02/2024 99 99 Reason Comments [...] Navigation Outreach 06/02/2022 [facility] at Home - [facility] Reason Comments Extreme fatigue Reason [...] SPMTRY PRE&POST-BRNCDILAT ADMN Michael Puga, DO [address] [place] [address] Respiratory [place] [address] [place] [address] Referral ID Status Reason Start Date Expiration Date V isits Requested Visits Authorized [id number] Closed Auto-Generate d Referral 12/22/2022 01/21/2024 1 1 Reason Comments Orders Reason Onset Date Comments F/U 3 Month Immunizations 04/05/2023 Flu vaccination Reason Onset Date Comments Transition Of Care 10/04/2023 TCM / [place] 10/01/OON Reason Comments HH: orders, update, [...] Procedures CONSULT TO GENERAL SURGERY OFFICE/OUTPATIENT [facility] 60 MINUTES Michael Puga, DO [address] [place] [address] Referral ID Status Reason Start Date Expiration Date V isits Requested Visits Authorized [id number] Closed PCP Requested Referral 03/01/2024 03/01/2025 1 [...] Care Teams (unrecognized sec tion and content) Motorboat Mechanic Inboard/Outboard Relationship Specialty Start Date End Date Michael Puga, DO [address] [place] [address] PCP - General Family Practice 05/06/16 Motorboat Mechanic Inboard/Outboard Relationship Specialty Start Date End Date Michael Puga, DO [address] [place] [address] PCP - General Family Practice 05/06/16 Motorboat Mechanic Inboard/Outboard Relationship Specialty Start Date End Date Michael Puga, DO [address] [place] [id number] PCP - General Family Practice 05/06/16 Motorboat Mechanic Inboard/Outboard Relationship Specialty Start Date End Date Michael Puga, DO [address] [place] [address] PCP - General Family Practice 05/06/16 Motorboat Mechanic Inboard/Outboard Relationship Specialty Start Date End Date Michael Puga, DO [address] [place] [address] PCP - General Family Practice 05/06/16 Motorboat Mechanic Inboard/Outboard Relationship Specialty Start Date End Date Michael Puga, DO [address] [place] [address] PCP - General Family Practice 05/06/16 Motorboat Mechanic Inboard/Outboard Relationship Specialty Start Date End Date Michael Puga, DO [address] [place] [address] PCP - General Family Practice 05/06/16 Motorboat Mechanic Inboard/Outboard Relationship Specialty Start Date End Date Michael Puga, DO [address] [place] [address] PCP - General Family Medicine 05/06/16 Motorboat Mechanic Inboard/Outboard Relationship Specialty Start Date End Date Michael Puga, DO [address] [place] [address] PCP - General Family Medicine 05/06/16 Motorboat Mechanic Inboard/Outboard Relationship Specialty Start Date End Date Michael Puga, DO [address] [place] [address] PCP - General Family Medicine 05/06/16 Motorboat Mechanic Inboard/Outboard Relationship Specialty Start Date End Date Michael Puga, DO [address] [place] [address] PCP - General Family Medicine 05/06/16 Motorboat Mechanic Inboard/Outboard Relationship Specialty Start Date End Date Michael Puga, DO [address] [place] [address] PCP - General Family Medicine 05/06/16 Motorboat Mechanic Inboard/Outboard Relationship Specialty Start Date End Date Michael Puga, DO [address] [place] [address] PCP - General Family Medicine 05/06/16 Motorboat Mechanic Inboard/Outboard Relationship Specialty Start Date End Date Michael Puga, DO [address] [place] [address] PCP - General Family Medicine 05/06/16 Motorboat Mechanic Inboard/Outboard Relationship Specialty Start Date End Date Michael Puga, DO [address] [place] [address] PCP - General Family Medicine 05/06/16 Motorboat Mechanic Inboard/Outboard Relationship Specialty Start Date End Date Michael Puga DO [address] [place] [address] PCP - General Family Medicine 05/06/16 Motorboat Mechanic Inboard/Outboard Relationship Specialty Start Date End Date Michael Puga DO [address] [place] [address] PCP - General Family Medicine 05/06/16 Motorboat Mechanic Inboard/Outboard Relationship Specialty Start Date End Date Michael Puga DO [address] [place] [address] PCP - General Family Medicine 05/06/16 Motorboat Mechanic Inboard/Outboard Relationship Specialty Start Date End Date Michael Puga DO [address] [place] [address] PCP - General Family Medicine 05/06/16 Motorboat Mechanic Inboard/Outboard Relationship Specialty Start Date End Date Michael Puga DO [address] [place] [address] PCP - General Family Medicine 05/06/16 Motorboat Mechanic Inboard/Outboard Relationship Specialty Start Date End Date Michael Puga DO [address] [place] [address] PCP - General Family Medicine 05/06/16 Motorboat Mechanic Inboard/Outboard Relationship Specialty Start Date End Date Michael Puga DO [address] [place] [address] PCP - General Family Medicine 05/06/16 Motorboat Mechanic Inboard/Outboard Relationship Specialty Start Date End Date Michael Puga DO [address] [place] [address] PCP - General Family Medicine 05/06/16 Isabella Michel, GLYNN [address] [place] [address] Primary Care Land Department Head 10/04/23 Motorboat Mechanic Inboard/Outboard Relationship Specialty Start Date End Date Michael Puga DO [address] [place] [address] PCP - General Family Medicine 05/06/16 Isabella Michel, RN [address] [place] [address] Primary Care Land Department Head 10/04/23 Motorboat Mechanic Inboard/Outboard Relationship Specialty Start Date End Date Michael Puga DO [address] [place] [address] PCP - General Family Medicine 05/06/16 Isabella Michel, RN [address] [place] [address] Primary Care Land Department Head 10/04/23 Motorboat Mechanic Inboard/Outboard Relationship Specialty Start Date End Date Michael Puga DO [address] [place] [address] PCP - General Family Medicine 05/06/16 Isabella Michel, RN [address] [facility] [place] [address] Primary Care Land Department Head 10/04/23 Motorboat Mechanic Inboard/Outboard Relationship Specialty Start Date End Date Michael Puga DO [address] [place] [address] PCP - General Family Medicine 05/06/16 Isabella Michel, GLYNN [address] [facility] [place] [address] Primary Care Land Department Head 10/04/23 Motorboat Mechanic Inboard/Outboard Relationship Specialty Start Date End Date Michael Puga DO [address] [place] [address] PCP - General Family Medicine 05/06/16 Isabella Michel, RN [address] [place] [address] Primary Care Land Department Head 10/04/23 Motorboat Mechanic Inboard/Outboard Relationship Specialty Start Date End Date Michael Puga DO [address] [place] [address] PCP - General Family Medicine 05/06/16 Motorboat Mechanic Inboard/Outboard Relationship Specialty Start Date End Date Michael Puga DO [address] [place] [address] PCP - General Family Medicine 05/06/16 Motorboat Mechanic Inboard/Outboard Relationship Specialty Start Date End Date Michael Puga DO [address] [place] [address] PCP - General Family Medicine 05/06/16 Motorboat Mechanic Inboard/Outboard Relationship Specialty Start Date End Date Michael Puga DO [address] [place] [address] PCP - General Family Medicine 05/06/16 Motorboat Mechanic Inboard/Outboard Relationship Specialty Start Date End Date Michael Puga DO [address] [place] [address] PCP - General Family Medicine 05/06/16 Motorboat Mechanic Inboard/Outboard Relationship Specialty Start Date End Date Michael Puga DO [address] [place] [address] PCP - General Family Medicine 05/06/16 Motorboat Mechanic Inboard/Outboard Relationship Specialty Start Date End Date Michael Puga DO [address] [place] [address] PCP - General Family Medicine 05/06/16 Motorboat Mechanic Inboard/Outboard Relationship Specialty Start Date End Date Michael Puga DO [address] [place] [address] PCP - General Family Medicine 05/06/16 Motorboat Mechanic Inboard/Outboard Relationship Specialty Start Date End Date Michael Puga, [address] [place] [address] PCP - General Family Medicine 05/06/16 Motorboat Mechanic Inboard/Outboard Relationship Specialty Start Date End Date Michael Puga, [address] [place] [address] PCP - General Family Medicine 05/06/16 Motorboat Mechanic Inboard/Outboard Relationship Specialty Start Date End Date Michael Puga, [address] [place] [address] PCP - General Family Medicine 05/06/16 Motorboat Mechanic Inboard/Outboard Relationship Specialty Start Date End Date Michael Puga, [address] [place] [address] PCP - General Family Medicine 05/06/16 Motorboat Mechanic Inboard/Outboard Relationship Specialty Start Date End Date Michael Puga DO [address] [place] [address] PCP - General Family Medicine 05/06/16 Motorboat Mechanic Inboard/Outboard Relationship Specialty Start Date End Date Michael Puga, [address] [place] [address] PCP - General Family Medicine 05/06/16 Motorboat Mechanic Inboard/Outboard Relationship Specialty Start Date End Date Michael Puga DO [address] [place] [address] PCP - General Family Medicine 05/06/16 Motorboat Mechanic Inboard/Outboard Relationship Specialty Start Date End Date Michael Puga, [address] [place] [address] PCP - General Family Medicine 05/06/16 Motorboat Mechanic Inboard/Outboard Relationship Specialty Start Date End Date Michael Puga DO [address] [place] [address] PCP - General Family Medicine 05/06/16 Motorboat Mechanic Inboard/Outboard Relationship Specialty Start Date End Date Michael Puga DO [address] [place] [address] PCP - General Family Medicine 05/06/16 Motorboat Mechanic Inboard/Outboard Relationship Specialty Start Date End Date Michael Puga DO [address] [place] [address] PCP - General Family Medicine 05/06/16 Key Portillo, BAFFLE MOUNTER.PERFORMANCE IMPROVEMENT COORDINATOR [address] [place] [address] Tool Shaper Setup Operator Family Medicine 04/09/24 Asia Rosales, BAFFLE MOUNTER.PERFORMANCE IMPROVEMENT COORDINATOR [address] [place] [address] Tool Shaper Setup Operator Family Medicine 04/09/24 Motorboat Mechanic Inboard/Outboard Relationship Specialty Start Date End Date Michael Puga DO [address] [place] [address] PCP - General Family Medicine 05/06/16 Key Portillo, BAFFLE MOUNTER.PERFORMANCE IMPROVEMENT COORDINATOR [address] [place] [address] Tool Shaper Setup Operator Family Medicine 04/09/24 Asia Rosales, BAFFLE MOUNTER.PERFORMANCE IMPROVEMENT COORDINATOR [address] [place] [address] Tool Shaper Setup Operator Family Medicine 04/09/24 Motorboat Mechanic Inboard/Outboard Relationship Specialty Start Date End Date Michael Puga DO [address] [place] [address] PCP - General Family Medicine 05/06/16 Key Portillo, BAFFLE MOUNTER.PERFORMANCE IMPROVEMENT COORDINATOR [address] [facility] [address] Tool Shaper Setup [facility] 04/09/24 SherryAsia, BAFFLE MOUNTER.PERFORMANCE IMPROVEMENT COORDINATOR [address] [facility] [address] [facility] 04/09/24 Motorboat Mechanic Inboard/Outboard Relationship Specialty Start Date End Date Michael Puga DO [address] [facility] [address] PCP - General Family Medicine 05/06/16 Key Portillo, BAFFLE MOUNTER.PERFORMANCE IMPROVEMENT COORDINATOR [address] [facility] [address] Tool Shaper Setup [facility] 04/09/24 SherryAsia, BAFFLE MOUNTER.PERFORMANCE IMPROVEMENT COORDINATOR [address] [facility] [address] [facility] 04/09/24 Motorboat Mechanic Inboard/Outboard Relationship Specialty Start Date End Date Michael Puga DO [address] [facility] [address] PCP - General Family Medicine 05/06/16 Key Portillo, BAFFLE MOUNTER.PERFORMANCE IMPROVEMENT COORDINATOR [address] [facility] [address] Tool Shaper Setup Operator Family [facility] 04/09/24 Asia Rosales, BAFFLE MOUNTER.PERFORMANCE IMPROVEMENT COORDINATOR [address] [place] [address] [facility] 04/09/24 Motorboat Mechanic Inboard/Outboard Relationship Specialty Start Date End Date Michael Puga DO [address] [facility] [address] PCP - General Family Medicine 05/06/16 Key Portillo, BAFFLE MOUNTER.PERFORMANCE IMPROVEMENT COORDINATOR [address] [place] [address] Tool Shaper Setup [facility] 04/09/24 Asia Rosales, BAFFLE MOUNTER.PERFORMANCE IMPROVEMENT COORDINATOR [address] [place] [address] [facility] 04/09/24 Motorboat Mechanic Inboard/Outboard Relationship Specialty Start Date End Date Michael Puga DO [address] [place] [address] PCP - General Family Medicine 05/06/16 Key Portillo, BAFFLE MOUNTER.PERFORMANCE IMPROVEMENT COORDINATOR [address] [place] [address] [facility] 04/09/24 SherryAsia, BAFFLE MOUNTER.PERFORMANCE IMPROVEMENT COORDINATOR [address] [place] [address] [facility] 04/09/24 Motorboat Mechanic Inboard/Outboard Relationship Specialty Start Date End Date Michael Puga DO [address] [facility] [place] [address] PCP - General Family Medicine 05/06/16 Key Portillo, BAFFLE MOUNTER.PERFORMANCE IMPROVEMENT COORDINATOR [address] [place] [address] Tool Shaper Setup Operator Family Medicine 04/09/24 Asia Rosales, BAFFLE MOUNTER.PERFORMANCE IMPROVEMENT COORDINATOR [address] [place] [address] Tool Shaper Setup Operator Family Medicine 04/09/24 Motorboat Mechanic Inboard/Outboard Relationship Specialty Start Date End Date Michael Puga DO [address] [place] [address] PCP - General Family Medicine 05/06/16 Key Portillo, BAFFLE MOUNTER.PERFORMANCE IMPROVEMENT COORDINATOR [address] [place] [address] Tool Shaper Setup Operator Family Medicine 04/09/24 Asia Rosales, BAFFLE MOUNTER.PERFORMANCE IMPROVEMENT COORDINATOR [address] [place] [address] Tool Shaper Setup Operator Family [facility] 04/09/24 Motorboat Mechanic Inboard/Outboard Relationship Specialty Start Date End Date Michael Puga DO [address] [place] [address] PCP - General Family Medicine 05/06/16 Key Portillo, BAFFLE MOUNTER.PERFORMANCE IMPROVEMENT COORDINATOR [address] [place] [address] Tool Shaper Setup Operator Family Medicine 04/09/24 Asia Rosales, BAFFLE MOUNTER.PERFORMANCE IMPROVEMENT COORDINATOR [address] [place] [address] Tool Shaper Setup Operator Family [facility] 04/09/24 Motorboat Mechanic Inboard/Outboard Relationship Specialty Start Date End Date Michael Puga DO [address] [place] [address] PCP - General Family Medicine 05/06/16 Key Portillo, BAFFLE MOUNTER.PERFORMANCE IMPROVEMENT COORDINATOR [address] [place] [address] Tool Shaper Setup Operator [facility] 04/09/24 Asia Rosales, BAFFLE MOUNTER.PERFORMANCE IMPROVEMENT COORDINATOR [address] [place] [address] Tool Shaper Setup [facility] 04/09/24 Motorboat Mechanic Inboard/Outboard Relationship Specialty Start Date End Date Michael Puga DO [address] [place] [address] PCP - General Family Medicine 05/06/16 Key Portillo, BAFFLE MOUNTER.PERFORMANCE IMPROVEMENT COORDINATOR [address] [place] [address] Tool Shaper Setup Operator[facility] 04/09/24 Asia Rosales, BAFFLE MOUNTER.PERFORMANCE IMPROVEMENT COORDINATOR [address] [place] [address] Tool Shaper Setup Operator[facility] 04/09/24 Team Status: Active Member [...] July 07, 2024 End: July 07, 2024 Motorboat Mechanic Inboard/Outboard Relationship Specialty Start Date End Date Michael Puga DO [address] [place] [address] PCP - General Family Medicine 05/06/16 Asia Rosales APRN.PERFORMANCE IMPROVEMENT COORDINATOR [address] [place], [place] [address] Tool Shaper Setup Operator Family Medicine 04/09/24 Motorboat Mechanic Inboard/Outboard Relationship Specialty Start Date End Date Michael Puga DO [address] [place], [place] [id number] PCP - General Family Medicine 05/06/16 Asia Rosales, BAFFLE MOUNTER.PERFORMANCE IMPROVEMENT COORDINATOR [address] [place] [address] Tool Shaper Setup Operator Family Medicine 04/09/24 Motorboat Mechanic Inboard/Outboard Relationship Specialty Start Date End Date Michael Puga DO [address] [place] [address] PCP - General Family Medicine 05/06/16 Asia Rosales, BAFFLE MOUNTER.PERFORMANCE IMPROVEMENT COORDINATOR [address] [place] [address] Tool Shaper Setup Operator Family [facility] 04/09/24 Motorboat Mechanic Inboard/Outboard Relationship Specialty Start Date End Date Michael Puga DO [address] [place] [address] PCP - General Family Medicine 05/06/16 Asia Rosales, BAFFLE MOUNTER.PERFORMANCE IMPROVEMENT COORDINATOR [address] [place] [address] Tool Shaper Setup Operator Family [facility] 04/09/24 Motorboat Mechanic Inboard/Outboard Relationship Specialty Start Date End Date Michael Puga DO [address] [place] [address] PCP - General Family Medicine 05/06/16 Asia Rosales, BAFFLE MOUNTER.PERFORMANCE IMPROVEMENT COORDINATOR [address] [place] [address] Tool Shaper Setup Operator Family [facility] 04/09/24 Motorboat Mechanic Inboard/Outboard Relationship Specialty Start Date End Date Michael Puga DO [address] [place] [address] PCP - General Family Medicine 05/06/16 SherryAsia, BAFFLE MOUNTER.PERFORMANCE IMPROVEMENT COORDINATOR [address] [place] [address] Tool Shaper Setup Operator Family Medicine 04/09/24 Motorboat Mechanic Inboard/Outboard Relationship Specialty Start Date End Date Michael Puga DO [address] [place] [address] PCP - General Family Medicine 05/06/16 SherryAsia, BAFFLE MOUNTER.PERFORMANCE IMPROVEMENT COORDINATOR [address] [place] [address] Tool Shaper Setup Operator Family Medicine 04/09/24 Motorboat Mechanic Inboard/Outboard Relationship Specialty Start Date End Date Michael Puga DO [address] [place] [address] PCP - General Family Medicine 05/06/16 SherryAsia, BAFFLE MOUNTER.PERFORMANCE IMPROVEMENT COORDINATOR [address] [place] [address] Tool Shaper Setup Operator Family Medicine 04/09/24 Motorboat Mechanic Inboard/Outboard Relationship Specialty Start Date End Date Michael Puga DO [address] [place] [address] PCP - General Family Medicine 05/06/16 SherryAsia, BAFFLE MOUNTER.PERFORMANCE IMPROVEMENT COORDINATOR [address] [place] [address] Tool Shaper Setup Operator Family Medicine 04/09/24 Isela Barton, BAFFLE MOUNTER.PERFORMANCE IMPROVEMENT COORDINATOR [address] [place] [address] [facility] 10/16/24 Motorboat Mechanic Inboard/Outboard Relationship Specialty Start Date End Date Michael Puga DO [address] [place], [place] [address]26[address] PCP - General Family Medicine 05/06/16 Asia Rosales, BAFFLE MOUNTER.PERFORMANCE IMPROVEMENT COORDINATOR [address] [place] [address] [facility] 04/09/24 Isela Barton, BAFFLE MOUNTER.PERFORMANCE IMPROVEMENT COORDINATOR [address] [place] [address] [facility] 10/16/24 Team Status: Active Member Role/Relationship [...] October 23, 2024 End: October 23, 2024 Motorboat Mechanic Inboard/Outboard Relationship Specialty Start Date End Date Michael Puga DO [address] [place], [place] 129321 PCP - General Family Medicine 05/06/16 Asia Rosales, BAFFLE MOUNTER.PERFORMANCE IMPROVEMENT COORDINATOR [address] [place], [place] [address]97[address] Tool Shaper Setup Operator Family Medicine 04/09/24 Isela Barton, BAFFLE MOUNTER.PERFORMANCE IMPROVEMENT COORDINATOR [address] [place], [place] [address] Tool Shaper Setup Operator Family Medicine 10/16/24 Team Status: Inactive Member [...] 31, 2024 End: October 31, 2024 Anabel LAVA PA Attending Provider Active Start: October 31, 2024 End: October 31, 2024 Anabel ALVA, PA Referring Provider Active Start: October 31, 2024 End: October 31, 2024 Team Status: Inactive Member Role/Relationship Status Dates Dr. Micheal Puga DO Primary Care Provider Active Start: [...] Active Start: November 30, 2024 Dr. Gallo Hiceky MD Attending Provider Active S tart: November [...] BE BASED ON THE PRIMARY CLINICAL RECORDS. [employer] provides no warranty or guarantee of the accuracy or completeness of information in this document.
[2024-12-03 16:45] VITALS: BP 152/59; PULSE 59; RESP 16; TEMP 36.5; O2SAT 94; BMI 23.8
[2024-12-03 16:46] VITALS: BMI 40.4
[2024-12-03 17:37] VITALS: BP 152/59; PULSE 59; RESP 16; TEMP 36.5; O2SAT 94
--- NOTE | 2024-12-03 20:30 | CPS ---
set up pt own cpap machine-
--- NOTE | 2024-12-03 20:30 | CPS ---
set up pt own cpap machine-
[2024-12-03] MEDS: Glycerin/Hypromellose/PEG400 15 ml Bottle 1 DRP EACH EYE (22:04)
[2024-12-03] MEDS: Fluticasone Propionate 110 MCG AER.W.ADAP 1 PUFF INHALATION (22:04)
[2024-12-03 22:10] VITALS: BP 160/58; PULSE 61
[2024-12-04] VITALS (7 sets, daily range): BP systolic 123–176; BP diastolic 40–60; PULSE 59–62; RESP 14–16; TEMP 36.1–36.9; O2SAT 94–96
[2024-12-04 05:50] LABS: Hematocrit 28.9 % (37-47); Hemoglobin 9.8 g/dL (12.0-15.0); Immature Granulocytes Count 0.050 X10^3/uL (0.0-0.0); Mean Corp Hgb Conc 33.9 g/dL (32-36); Mean Corpuscular Volume 90.0 fL (81-99); Mean Platelet Vol. 10.2 fl (6.2-12.0); NRBC Flagged by Analyzer 0 % (0-5); Platelet Count 177 K/mm3 (150-450); RBC Distribution Width CV 14.6 % (11.6-14.6); RBC Distribution Width SD 48.6 fl (35.1-43.9); Red Blood Count 3.21 M/mm3 (4.2-5.4); White Blood Count 8.4 K/mm3 (4.4-11.0)
[2024-12-04 06:31] LABS: AST(SGOT) 25 U/L (<=31); Alanine Aminotransfer ALT/SGPT 27 U/L (<=34); Albumin, Serum 3.4 g/dL (3.4-4.8); Alkaline Phosphatase 55 U/L (35-104); Anion Gap 9 (5-15); BUN 32 mg/dL (4-19); BUN/Creat Ratio 31.5 RATIO (10-20); Calcium,Total 8.5 mg/dL (7.6-11.0); Carbon Dioxide 23.6 mmol/L (21.0-32.0); Chloride 96 mmol/L (98-108); Estimated Creatinine Clearance 37.60 ml/min (50-250); Globulin 1.9 g/dL (2.2-4.2); Glucose 100 mg/dL (70-99); Magnesium 2.3 mg/dL (1.5-2.2); Potassium 4.7 mmol/L (3.3-5.1)
[2024-12-04] MEDS: Vitamin B Comp W-C Capsule 1 CAP PO (08:55)
[2024-12-04] MEDS: Aspirin E.C. 81 MG Tablet PO (08:55)
[2024-12-04] MEDS: Senna/Docusate Sodium 1 Tablet 2 TABLET PO ×2 (08:56→21:09)
[2024-12-04] MEDS: Glycerin/Hypromellose/PEG400 15 ml Bottle 1 DRP EACH EYE ×2 (08:56→21:08)
[2024-12-04] MEDS: Fluticasone Propionate 110 MCG AER.W.ADAP 1 PUFF INHALATION ×2 (08:56→21:07)
--- NOTE | 2024-12-04 11:59 | PCM.HP.STD ---
[facility] - General General Date of Admission: 12/03/24 Date of Service: 12/04/24 Chief Complaint: Debility secondary to generalized weakness and tremors of the lower extremities with gait instability. 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 Initial blood pressure in the emergency room was 229/78. A stat noncontrast CT brain showed no acute process. She could not have a MRI of the brain due to incompatibility with her pacemaker. She had a follow-up CT brain on 11/30/2024 and it showed no acute abnormalities. TTE on 11/29/24 showed moderate concentric left ventricular hypertrophy with normal left ventricular systolic function. EF was estimated at 60% and there are no regional wall motion abnormalities. The right ventricle is of normal size with normal systolic function. The left atrium was mildly enlarged and the right atrium was normal. PA systolic was estimated at 65 mmHg which is consistent with moderate pulmonary hypertension. There is 2+ TR. Significant lab in the hospital included a HGB of 10.6, down from 12.4 on 10/31/2024 and a sodium of 127 on 12/03/2024 which was down from 133 at admission to the hospital. A TSH was normal. She did not have serum osmolalities, urine sodium, urine creatinine or urine urea done. Consult was obtained with neurology who had no acute recommendations other than PT/OT. She was seen by PT/OT and admission to acute rehab was recommended. She was transferred to the acute inpt rehab unit at [facility] on 12/03/24 for 3 hours of therapy daily to restore function/independence at or near her level prior to admission the the hospital. All lab from this morning is personally reviewed. Hemoglobin today is 9.8, down from 12.4 on 10/31/2024. She has not had a Hemoccult stool. White blood cell count is normal and platelets are also normal. MCV is 90. RDW is mildly increased at 48.6. Sodium today is 129 and the BUN is 32 with a creatinine of 1.02. BUN/creatinine ratio is elevated at 31.5. Creatinine clearance is estimated at 37.6 and the GFR is 55. Calcium, phosphorus and magnesium are all normal. LFTs are unremarkable. Tox screen at admission was positive for benzodiazepines. She takes as needed Ativan for anxiety. Recent hemoglobin A1c was mildly increased at 5.7. Recent TSH was normal at 2.1. She takes levothyroxine 50 mcg daily. On 11/13/2024 she had a prescription for gabapentin 100 mg #60 and lorazepam 0.5 mg #[address] Michael Puga. She was staking Prednisone for her breathing and at one point was taking 20 mg a day and then decreased to 10 mg daily. She has been getting 10 mg daily while in the hospital. She is on palliative care and recently was seen by Portia Mata on 11/06/2024 and that note states she had stopped the Prednisone but, Niurka thinks she was still taking it at admission to the hospital. She has gained a of wt since she has been on Prednisone. It looks to me like she has gained about 20 lbs since May. Was also taking ropinirole at bedtime for restless leg prescribed by PCP. Niurka tells me that she has trouble sleeping at night. She will often get up and go sleep in her recliner....she does not wear CPAP in the recliner. When she naps during the day she does not wear her CPAP. About a month ago the dose of the Paxil was increased. About the same time Gabapentin was added to the drug regimen. She started with 100 gm and then increased by 100 mg every week and at admission to the hospital she had just increased to 300 mg at HS. She c/o pain in the low back. She does not have pain in the RLE unless you squeeze the calf. She has some numbness in the RLE. The tremors just started a few days prior to admission to the hospital. She tells me that she has never seen pain management and she has never had an epidural. The pain in the back increases with standing/bearing weight. She complains of feeling tired all the time and having no motivation. Tells me that the antidepressants do not help. She takes Ativan in the morning every morning recently because she thinks it helps with anxiety about being SOB. She was scheduled to have a nuclear stress test in the near future but she will be in the hospital. Her last visit with Cardiology was 11/02/24. 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 Right carotid bruit Pulmonary hypertension TIA (transient ischemic attack) (12/2018) GI bleed (2018) Essential (primary) hypertension Osteoarthritis Anxiety Daytime somnolence Dysmetabolic syndrome X Allergic rhinitis Malignant melanoma of skin of trunk, except scrotum Hyperlipidemia FH: sudden cardiac (SCD) Depression Paroxysmal atrial fibrillation Sick sinus syndrome Carotid artery disease Home Medications ?Medication ?Instructions ?Recorded ?Last Taken ?Type aspirin 81 mg tablet,delayed 81 mg PO QDAY heart Remedify #90 tabs 12/27/18 12/03/24 Rx release (Adult Low Dose Aspirin) coenzyme Q10 100 mg capsule (Co 100 mg PO DAILY supplement 01/23/20 Unknown History Q-10) rosuvastatin 10 mg tablet 10 mg PO DAILY cholesterol 01/23/20 Unknown History sucralfate 100 mg/mL oral 10 ml PO TID PRN digestion 11/25/21 Unknown History suspension cyclosporine 0.05 % eye drops in a 1 drp EACH EYE Q12H eye health 09/27/23 12/03/24 History dropperette (Restasis) albuterol sulfate 90 mcg/actuation 2 puff inhalation Q6H PRN 10/02/23 Unknown Rx aerosol inhaler (ProAir HFA) shortness of breath or wheezing #6.7 grams levothyroxine 50 mcg capsule 50 mcg PO QDAY Thyroid 01/25/24 12/03/24 History spironolactone 25 mg tablet 25 mg PO DAILY fluid retention #30 01/25/24 Unknown Rx Held on 12/03/24. tabs Instructions: Resume on 12/06/24. fluticasone propionate 110 1 inh inhalation Q12H SOB/Wheezing 04/30/24 12/03/24 History mcg/actuation HFA aerosol inhaler meloxicam 15 mg tablet 15 mg PO DAILY Joint pain 04/30/24 Unknown History vitamin B complex (Balanced B-50 1 tab PO DAILY supplement 04/30/24 Unknown History tablet) Held on 12/04/24. Instructions: MD Ordered diltiazem HCl 240 mg 240 mg PO QHS heart #90 caps 05/15/24 12/02/24 Rx capsule,extended release 24 hr furosemide 20 mg tablet 20 mg PO QDAY fluid retention 07/06/24 Unknown History Held on 12/03/24. Instructions: Resume on 12/06/24. amiodarone 200 mg tablet 200 mg PO DAILY heart #90 tabs 07/20/24 Unknown Rx losartan 100 mg tablet 100 mg PO DAILY blood pressure #90 09/11/24 12/03/24 Rx tabs azelastine 0.05 % eye drops 1 drp ophthalmic (eye) BID PRN eye 11/02/24 Unknown History drops omeprazole 20 mg capsule,delayed 20 mg PO QDAY GERD 11/02/24 Unknown History release paroxetine HCl 40 mg tablet 40 mg PO QDAY Depression 11/02/24 Unknown History prednisone 10 mg tablet 10 mg PO DAILY steriod 11/29/24 Unknown History gabapentin 100 mg capsule 300 mg (3 x 100 mg) PO QHS 12/03/24 Unknown Rx neuropathy #12 caps hydralazine 50 mg tablet 50 mg PO TID BP #0 tabs 12/03/24 12/03/24 Rx lorazepam 0.5 mg tablet 0.5 mg PO BID PRN PRN Anxiety #6 12/03/24 12/02/24 Rx tabs Allergy/AdvReac Type Severity Reaction Status Date / Time ciprofloxacin (From Cipro) Allergy Rash Verified 11/29/24 16:08 Penicillins (PCN) Allergy Hives Verified 11/29/24 16:08 Sulfa (Sulfonamide Allergy Hives Verified 11/29/24 16:08 Antibiotics) Beta-Blockers AdvReac Other Verified 11/29/24 16:08 (Beta-Adrenergic Bloc hydrocodone (From Vicodin) AdvReac Other Verified 11/29/24 16:08 lisinopril AdvReac cough Verified 11/29/24 16:08 meperidine (From Demerol) AdvReac Vomiting Verified 11/29/24 16:08 morphine AdvReac Other Verified 11/29/24 16:08 pravastatin AdvReac Other Verified 11/29/24 16:08 Family History Grandfather Myocardial infarction Sudden cardiac Father Myocardial infarction CAD (coronary artery disease) CHF (congestive heart failure) Mother Myocardial infarction CAD (coronary artery disease) A-fib Brother A-fib CHF (congestive heart failure) Brother Cancer Son Diabetes Son Hypertension Surgical History History of permanent cardiac pacemaker placement (06/09/21) History of esophagogastroduodenoscopy (EGD) (09/07/18) History of left heart catheterization (LHC) (05/2011) 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) History of total right knee replacement (TKR) (~08/2011) History of right hip replacement (~2003) History of cholecystectomy History of total left knee replacement (TKR) Social History (Updated 12/04/24 @ 17:[address] Susana Munoz DO) household members: none housing: house Smoking Status: Never smoker alcohol intake: never substance use type: does not use caffeine: Yes what type of physical activity do you participate in: none seatbelt use: always ROS Constitutional Constitutional: Reports change in weight, fatigue, weakness and weight gain; Denies anorexia, chills, fever(s) or night sweats Eyes Eyes: Denies blurry vision, change in vision, eye pain or loss of vision ENT HEENT: Denies abnormal hearing, dysphagia, headache(s), hearing loss, nasal congestion or sore throat Cardiovascular Cardiovascular: Reports dyspnea on exertion; Denies chest pain, edema, lightheadedness, orthopnea, palpitations, paroxysmal nocturnal dyspnea or syncope Respiratory/Chest Respiratory/Chest: Reports dyspnea on exertion, shortness of breath with exertion and other Details: Has JOSE and is not always compliant with CPAP. ; Denies cough, dyspnea, portable oxygen @ home, productive cough, shortness of breath at rest or wheezing Gastrointestinal Gastrointestinal: Denies abdominal pain, constipation, diarrhea, dyspepsia, hematemesis, hematochezia, nausea or vomiting Genitourinary Genitourinary: Reports nocturia; Denies dysuria, hematuria, urinary frequency, urinary hesitancy, urinary incontinence or urinary urgency Musculoskeletal Musculoskeletal: Reports back pain, difficulty walking, muscle weakness, numbness, tremors and other Details: R foot drop - chronic ; Denies joint pain, joint swelling or neck pain Integumentary Integumentary: Denies jaundice, pruritus, rash or wounds Neurologic Neurologic: Reports disequilibrium, dizziness, numbness, tingling and tremor(s); Denies confusion, focal weakness, headache(s), paresthesias or seizures Psychiatric Psychiatric: Reports anxiety, depression and difficulty concentrating; Denies homicidal ideation, irritability, mood swings, suicidal ideation or visual hallucinations Endocrine Endocrinology: Denies change in body appearance, polydipsia or polyuria Hematologic/Lymphatic Hematologic/Lymphatic: Reports easy bruising; Denies easy bleeding or lymphadenopathy Allergic/Immunologic Allergic/Immunologic: Denies rhinitis, eczemia or asthma Vital Signs Vital Signs Vital Signs: 12/03/24 16:45 12/03/24 17:26 12/03/24 17:37 Temperature 97.7 F L 97.7 F L Temperature Source Temporal Temporal Pulse Rate 59 L 59 L Respiratory Rate 16 16 Respiratory Effort Normal Non-Labored Respiratory Depth Normal Respiratory Pattern Normal Blood Pressure 152/59 H 152/59 H Blood Pressure Mean 90 90 Blood Pressure Source Monitor Blood Pressure Position Semi-Fowlers Semi-Fowlers Blood Pressure Location Right Arm Right Arm Pulse Ox 94 94 Oxygen Delivery Method Room Air Room Air 12/03/24 20:30 12/03/24 22:10 12/03/24 22:26 Temperature Temperature Source Pulse Rate 61 Respiratory Rate Respiratory Effort Normal Non-Labored Respiratory Depth Respiratory Pattern Blood Pressure 160/58 H Blood Pressure Mean Blood Pressure Source Blood Pressure Position Blood Pressure Location Pulse Ox Oxygen Delivery Method Room Air Room Air 12/04/24 05:28 12/04/24 05:32 12/04/24 09:20 Temperature 97 F L Temperature Source Oral Pulse Rate 62 62 Respiratory Rate 16 Respiratory Effort Respiratory Depth Respiratory Pattern Blood Pressure 123/40 H 123/40 H Blood Pressure Mean 67 Blood Pressure Source Monitor Blood Pressure Position Semi-Fowlers Blood Pressure Location Left Arm Pulse Ox 94 Oxygen Delivery Method Room Air Room Air Weight Weight: 143 lb Body Mass Index (BMI) 23.8 Physical Exam Const alert, oriented x3 and no apparent distress General Appearance: cooperative, comfortable and well kempt HEENT normocephalic, head/scalp atraumatic and hearing grossly normal bilaterally HEENT Narrative: Dry MM. No thrush. Eyes PERRL, EOMs intact bilaterally, conjunctivae normal and no scleral icterus Eyes Narrative: No discharge from the eyes. Neck supple, No nodes and no carotid bruits Chest Chest: symmetrical chest wall rise Resp normal respiratory effort and normal air movement Resp Narrative: Lungs are clear to auscultation with good air exchange throughout. Effort and Inspection: able to speak in complete sentences Cardio regular rate, regular rhythm, no murmurs, no rub and no gallops Cardio Narrative: No ectopy GI normal to inspection, nondistended, normoactive bowel sounds, soft to palpation and non-tender no CVA tenderness Back/Spine Back/Spine Narrative: She has pain in the low back in the BL paravertebral areas, oriana just above the iliac crest. No openings in the skin and no redness. Negative SLR BL. She has allodynia in the R calf with light stroking of the skin but, oliveira I am not touching her she has no pain. Extremity no calf tenderness and no pedal edema Extremity Narrative: DP and PT pulses are 2+ in both feet. Both feet are warm to touch. Skin Rashes: no rashes Neuro oriented x3, CN's II-XII intact bilaterally, moves all extremities and no focal motor deficits Neuro Narrative: paresthesias of the RLE and Allodynia R calf. Negative SLR. No tremors when I examined her.....she was lying in bed and was comfortable. Psych mental status grossly normal, thought process normal, cooperative, affect normal and speech normal Appearance: grossly normal and appropriate Attitude: calm and engaged Activity / Motor Behavior: appropriate eye contact Speech: normal speech Mood & Affect: Negative for depressed or anxious Results Lab / Micro Data 12/04/24 05:24 12/04/24 05:24 Labs: Laboratory Results - last 24 hr 12/04/24 05:24: WBC 8.4, RBC 3.21 L, Hgb 9.8 L, Hct 28.9 L, MCV 90.0, MCH 30.5, MCHC 33.9, RDW Std Deviation 48.6 H, RDW Coeff of Chandu 14.6, Plt Count 177, MPV 10.2, Immature Gran % (Auto) 0.600, Neut % (Auto) 69.7, Lymph % (Auto) 13.8 L, [place] % (Auto) 11.9 H, Eos % (Auto) 3.2, Baso % (Auto) 0.8, Absolute Neuts (auto) 5.9, Absolute Lymphs (auto) 1.16, Nucleated RBC % 0, Sodium 129 L, Potassium 4.7, Chloride 96 L, Carbon Dioxide 23.6, Anion Gap 9, BUN 32 H, Creatinine 1.02, Estim Creat Clear Calc 37.60 L, Est GFR (MDRD) Non-Af 55 L, BUN/Creatinine Ratio 31.5 H, Glucose 100 H, Calcium 8.5, Phosphorus 3.4, Magnesium 2.3 H, Total Bilirubin 0.41, AST 25, ALT 27, Alkaline Phosphatase 55, Total Protein 5.3 L, Albumin 3.4, Globulin 1.9 L, Albumin/Globulin Ratio 1.8 Assessment & Plan Assessment/Plan (1) Debility: (2) Generalized weakness: (3) Disequilibrium: (4) Tremor: (5) Hyponatremia: (6) Normochromic normocytic anemia: (7) Moderate left ventricular hypertrophy: (8) Pulmonary hypertension: (9) Tricuspid regurgitation: (10) Left atrial enlargement: (11) Morbid obesity with BMI of 40.0-44.9, adult: (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: (13) History of permanent cardiac pacemaker placement: (14) Paroxysmal atrial fibrillation: (15) Hypothyroidism: QUALIFIERS: Hypothyroidism type: unspecified Qualified Code(s): E03.9 - Hypothyroidism, unspecified (16) Essential (primary) hypertension: (17) Hyperlipidemia: QUALIFIERS: Hyperlipidemia type: pure hypercholesterolemia Qualified Code(s): E78.00 - Pure hypercholesterolemia, unspecified; E78.0 - Pure hypercholesterolemia (18) TIA (transient ischemic attack): PLAN: Plan PLAN PT for gait stability OT for ADL's ST for evaluation Analgesics as needed Bowel protocol Fall precautions Assess for Anxiety/Depression GI prophylaxis -Protonix and sucralfate. History of GI bleeds. Taking meloxicam 15 mg daily. Also on aspirin 81 mg daily. DVT prophylaxis with heparin 5000 units SQ every 12 hours Follow up with PCP, Dr. Alcala, cardiology following DC from IP Rehab AM lab including CMP, CBC, Mag and Phos Lidocaine patch to the low back Serum osmolality, urine osmolality, urine urea, urine sodium A.m. cortisol Hold Paxil for 48 hours and then restart at a lower dose or consider using Sertraline instead since it causes less sedation and is less likely to cause tremors. Hold gabapentin - she has no radicular pain at this time Decrease the Ativan to 0.25 mg daily in the AM and DC in a few days. Overnight trending pulse ox WHILE WEARING CPAP. I reinforced with her that she is to wear CPAP ANYTIME she is sleeping or napping. Check a Hemoccult stool Change the diet to an 1800-calorie cardiac diet I suspect the tremors are related to high dose Paxil in an elderly person with stage 3A CRF. Suspect hyponatremia is also related to Paxil. She tells everyone she is depressed because she has chronic fatigue and is not motivated to do anything BUT, she is not compliant with CPAP and I suspect she is chronically sleep deprived. She is making good eye contact with me and she is pleasant. She does not have a depressed affect and she also does not appear anxious. She likely gets SOB with exertion because she is mostly sedentary and has poor exercise tolerance coupled with moderate pulmonary HTN and class 3 obesity. She is also on a few sedating medications which are likely contributing to drowsiness during the day. I am worried about chronic use of Meloxicam due to the hx of GI bleeds in the past and the declining HGB. May need to DC. She has chronic back pain that needs to be treated without making her more sedated. Weight loss was advised. Would like to get her off steroids because I do not think they are helping her breathing and they are likely contributing to wt gain. She wants to lose weight and needs help. Charges/Coding Visit Charges Inpatient E&M: 93611 Init Hosp L3
[2024-12-04 14:11] LABS: Creatinine, Urine (random) 23.20 mg/dL (28.00-217.00); Urea Nitrogen, Urine 346 mg/dL (NO RANGE EST.)
[2024-12-04 15:03] LABS: Osmolality, Serum 283 mOsm/KG (280-301)
[2024-12-04 15:12] LABS: Osmolality, Urine 298 mOsm/KG
--- NOTE | 2024-12-04 17:36 | PCM.RU.PYE ---
Admission Information Primary Diagnosis:: Debility due to disequilibrium and tremors of extremities. Status Changes from Prescreening?: No changes Identified Actual Problem List:: Falls, Pain, ALteration in Cmfrt, Depression, Alteration in Sleep, Mobility Impaired, Self Care Deficit, BP, Hypertension, Alteration/ Air Exchange, Fluid Change-Dehydration and Alteration-Leisure Activ. Potential Problem List:: DVT, Bleeding, Infection, UTI, Aspiration, Falls, Skin Integrity and Depression Risk of Complications DVT: JONATAN Hose and - (Heparin 5000 units SQ every 12 hours) Bleeding: Monitor Lab Values, Nursing to Teach Precautions for anti-coagulation therapy., Wound, if applicable, to be assessed every shift. and Stroke patients assessed for lethargy or change in status. Infection: Clinical Staff to Monitor for S/S of infection: and S/S of infection include fever, redness, warmth, etc. Urinary Tract Infection: Monitor for frequency, burning, discomfort, or incontinence. and Nursing will obtain urine sample for urinalysis and C&S when ordered. Aspiration: Clinical staff will monitor for coughing, drooling, congestion., Speech will evaluate swallowing and dsyphasia. and Nursing will monitor patient swallowing during meals. Falls: Patient will be evaluated for Fall Precautions and Patient will be placed on Fall Precautions as indicated per protocol. Skin Breakdown: Nursing will assess skin daily using assessment tool. and Nursing will place on Skin Breakdown Precautions as indicated. Pain: Clinical staff will assess patient's pain level per protocol., Medications will be given, if needed, and the pain level reassessed. and Other methods: Massage, distraction, decrease stimulus, etc. used PRN. Plan of Care Patient requires physician specializing in physical medicine and rehab oversight to provide close medical supervision of rehab issues including: Pain Management, Sleep Problems, Bowel and Bladder, Medical and co-morbidity Management, DVT prophylaxis, Rehabilitation Leadership and Coordination of treatment team Patient needs Physical Therapy: For a minimum of 1 hour and At least 5 out of 7 days Patient needs Physical Therapy to improve:: Mobility, Strengthening, Transfers, Stretching, ROM, Endurance, Stairs, Gait and Balance Patient needs Occupational Therapy: For a minimum of 1 hour and At least 5 out of 7 days Patient needs Occupational Therapy to improve ADL's incl.: Eating, Grooming, Bathing, Dressing, Toileting, Toilet transfers, Community Reintegration, Higher functioning activities, Household tasks, Adaptive Equipment, Splinting and Other activities as determined Patient requires 24/7 Rehabilitation Nursing for: Pain Issues, Identifying and preventing risk factors, Monitoring and reporting current medical conditions, Assisting with ambulation, transfer, and all ADL's, Teaching patients about disease process and medications, Family teaching, Providing safe environment, Bowel and Bladder Issues, Skin integrity and Medication Management Patient needs Specialty Transformer Assembler/ Case Management for: Discharge Planning, Arranging Home Equipment or Services and Family Interventions Patient needs Dietary and Nutrition Services for: Adequate Nutrition, Nutritional Supplements and Nutritional Education Goals Goals Patient will remain: free from falls Patient will perform eating at: MOD I level of assist. Patient will perform bed mobility at: MOD I level of assist. Patient will complete transfers from bed to chair at: MOD I level of assist. Patient will ambulate: - (165 feet with least restrictive device at supervision on various surfaces) Patient will complete upper body dressing at: MOD I level of assist. Patient will complete lower body dressing at: MOD I level of assist. (With adaptive equipment as needed) Patient will complete toilet transfer at: MOD I level of assist. Patient will complete toileting at: MOD I level of assist. Patient will perform bathing at: - (She will complete upper body bathing independently and lower body bathing at mod I with adaptive equipment as needed.) Patient will perform Tub/Shower transfer at: - (Supervision using DME as needed) Patient will complete grooming at: MOD I level of assist. Patient will complete home management skills at: MOD I level of assist. Patient will achieve: - (2 steps with 1 handrail at standby assist) Patient will have pain level of: of 3 or less Patient's skin will: remain intact Patient will receive: adequate nutrition. Discharge Planning Pt Prognosis for Sig. Practical Improv. w/in Reasonable Time: Good Estimated Length of stay (days): 21 Anticipated D/C Destination: Home with Outpt Therapy Was Preadmission Assessment Accurate?: Yes
[2024-12-04 17:57] LABS: CORTISOL AM 2.72 ug/dL (6.02-18.40)
[2024-12-04] MEDS: Heparin Injection (Vial) 5,000 UNIT/ML VIAL 5000 UNIT SC (21:06)
[2024-12-05] VITALS (8 sets, daily range): BP systolic 146–166; BP diastolic 58–64; PULSE 59–63; RESP 16; TEMP 36.6–37.2; O2SAT 94–96
--- NOTE | 2024-12-05 07:39 | PN_ITS ---
Subjective Subjective Afebrile VSS -blood pressure over the past 24 hours has ranged from 123/42 176/60. Diastolics are always within goal but systolics are pretty consistently greater than 140. Heart rate ranged from 59-63. Maintaining appropriate oxygen saturation on RA Oral intake - FOOD good FLUIDS good Discussed with nursing - no problems that need addressed Reviewed the THERAPY notes Medication list reviewed. I reviewed the overnight trending pulse ox which was done on CPAP with no O2 bleed in. The O2 sat was 89 or less 1.52% of the time for a total of 6 minutes and 50 seconds. There were no oxygen saturations lasting greater than 60 seconds. The AM cortisol ordered for this morning was done at 4:22 PM yesterday and it was low at 2.72. She had 10 mg of Prednisone yesterday AM? She tells me that she feels more alert today. She did not awaken with tremors today. Denies SOB at rest, CP, lightheadedness. Niurka tells me today that the prednisone was started by palliative care? To help with SOB? Denies lightheadedness today and also denies SOB at rest, CP, N/V abd pain, dysuria. She di not desaturate with ambulation but, she did get SOB. FEurea and FENa yesterday indeterminate. I reviewed Dr. Alcala's PN form 11/02/24 and Prednisone was not listed on her medication list. In his notes she is to be using O2 at night, 4 LPM, with CPAP 03/09. She had a 6 minute walk test that showed O2 sat of 94%. she was due undergo a re-titration starting at BiPAP 03/09 on 2 LPM. Objective Data Objective Data Vital Signs: Vital Signs Temp Pulse Resp BP Pulse Ox O2 Del Method O2 Flow Rate 97.8 F 63 16 159/64 H 94 Room Air 0 12/05/24 05:05 12/05/24 05:07 12/05/24 05:05 12/05/24 05:05 12/05/24 07:33 12/05/24 07:33 12/04/24 21:04 FiO2 21 12/04/24 21:04 Oxygen Flow Rate (L/min) 0 Oxygen Delivery Method Room Air Weight: 243 lb 0.002 oz Body Mass Index (BMI) 40.4 Intake & Output: Intake and Output for Last 24 Hours 12/03/24 12/04/24 12/05/24 23:59 23:59 23:59 Intake Total 240 / 240 2440 / 2440 Output Total 900 / 900 2049 / 2049 550 / 550 Balance -660 / -660 390 / 390 -550 / -550 Lab / Micro Data 12/04/24 05:24 12/04/24 05:24 Labs: Laboratory Results - last 24 hr 12/04/24 12:15: Urine Osmolality 298, Ur Random Sodium 58, Urine Creatinine 23.20 L, Urine Urea Nitrogen 346 12/04/24 13:22: Serum Osmolality 283 12/04/24 16:22: Cortisol AM Sample 2.72 L Physical Exam Const alert, oriented x3 and no apparent distress Constitutional Narrative: Very alert and pleasant today. Did not desaturate with ambulation but, she got noticeably more SOB. General Appearance: cooperative Resp clear to auscultation bilaterally Resp Narrative: Breathing easily at rest with no tachypnea and no conversational dyspnea. Gets a little labored with ambulation. 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 Continue therapy 2. Check a pulse ox with exertion today 3. Cortrosyn stimulation test tomorrow. May need an endocrinology consult. Not sure whether she is actually taking Prednisone at home of not? Not sure why she was ever really on Prednisone? Not sure why Palliative would start a steroid for breathing when she sees Dr. Alcala for pulmonary? 4. Consult ST for a cog eval. 5. she is to have an OP nuclear stress following DC from rehab and then will follow up with cardiology. 6. Obtain palliative care notes to see when she was started on Prednisone and how long she was to take it? Charges/Coding Visit Charges Inpatient E&M: 44109 Subs Hosp L1
[2024-12-05] MEDS: Fluticasone Propionate 110 MCG AER.W.ADAP 1 PUFF INHALATION ×2 (08:02→21:56)
[2024-12-05] MEDS: Glycerin/Hypromellose/PEG400 15 ml Bottle 1 DRP EACH EYE ×2 (08:02→21:54)
[2024-12-05] MEDS: Senna/Docusate Sodium 1 Tablet 2 TABLET PO (08:02)
[2024-12-05] MEDS: Vitamin B Comp W-C Capsule 1 CAP PO (08:02)
[2024-12-05] MEDS: Lidocaine 5% Patch 2 PATCH TOPICAL (08:03)
[2024-12-05] MEDS: Aspirin E.C. 81 MG Tablet PO (08:03)
[2024-12-05] MEDS: Heparin Injection (Vial) 5,000 UNIT/ML VIAL 5000 UNIT SC ×2 (08:03→21:55)
[2024-12-06] MEDS: 0.9% Saline Lock 10 ML Syringe IV (05:14)
[2024-12-06] MEDS: Cosyntropin 0.25 MG in 0.9% Normal Saline (Pres. free 4 ML 150 MG IV (05:17)
[2024-12-06 05:30] VITALS: BP 179/64; PULSE 59; RESP 16; TEMP 36.9; O2SAT 95
[2024-12-06 05:53] VITALS: BMI 40.7
[2024-12-06 06:27] LABS: CORTISOL AM 6.62 ug/dL (6.02-18.40)
[2024-12-06 07:47] LABS: CORTISOL AM 27.30 ug/dL (6.02-18.40)
[2024-12-06] MEDS: Glycerin/Hypromellose/PEG400 15 ml Bottle 1 DRP EACH EYE ×2 (08:01→21:57)
[2024-12-06] MEDS: Aspirin E.C. 81 MG Tablet PO (08:01)
[2024-12-06] MEDS: Vitamin B Comp W-C Capsule 1 CAP PO (08:01)
[2024-12-06] MEDS: Heparin Injection (Vial) 5,000 UNIT/ML VIAL 5000 UNIT SC ×2 (08:02→21:57)
[2024-12-06] MEDS: Fluticasone Propionate 110 MCG AER.W.ADAP 1 PUFF INHALATION ×2 (08:02→21:57)
[2024-12-06] MEDS: Lidocaine 5% Patch 2 PATCH TOPICAL (08:03)
--- NOTE | 2024-12-06 10:46 | PCM.PROGNOTE ---
Subjective Subjective Afebrile The blood pressure over the past 24 hours has ranged from 146/58 to 179/64. Diastolics are always within goal but systolics are consistently high. The heart rate is ranged from 59-60. She is maintaining appropriate oxygen saturation on room air while awake. Nursing reports that the pt stated she was awake at 2 AM las night and not sleeping but, review of the nursing notes state she slept well? Eating 75 to 100% of all her meals. She had 1720 cc in yesterday. Fluid balance was still -88. Overnight she was -605. The weight today is 244 pounds and 11 ounces which is up from 236 at admission to the hospital. She weighed 243 at presentation to rehab. She was 220-224 in April of last year. Antihypertensives include diltiazem 240 mg p.o. nightly and losartan 100 mg daily. AM cortisol was 6.62. Following Cortrosyn the cortisol increased at 27.3 which indicates good adrenal function. Prednisone was held yesterday and today. Niurka denies lightheadedness, cephalgia, chest pain, shortness of breath, cough, nausea/vomiting/abdominal pain, dysuria and calf tenderness. Objective Data Objective Data Vital Signs: Vital Signs Temp Pulse Resp BP Pulse Ox O2 Del Method O2 Flow Rate 98.5 F 59 L 16 179/64 H 95 Room Air 0 12/06/24 05:30 12/06/24 05:30 12/06/24 05:30 12/06/24 05:30 12/06/24 05:30 12/06/24 05:30 12/04/24 21:04 FiO2 21 12/04/24 21:04 Oxygen Flow Rate (L/min) 0 Oxygen Delivery Method Room Air Weight: 244 lb 11.41 oz Body Mass Index (BMI) 40.7 Intake & Output: Intake and Output for Last 24 Hours 12/04/24 12/05/24 12/06/24 23:59 23:59 23:59 Intake Total 2440 / 2440 1720 / 1720 985 / 985 Output Total 2049 / 2049 1800 / 1800 1290 / 1290 Balance 390 / 390 -80 / -80 -305 / -305 Lab / Micro Data 12/07/24 07:19 12/07/24 07:19 Labs: Laboratory Results - last 24 hr 12/06/24 05:07: Cortisol AM Sample 6.62 12/06/24 06:26: Cortisol AM Sample 27.30 H Micro: Microbiology 12/05/24 11:58 Stool Stool Occult Blood (LOIS) - Final Occult Blood Positive Physical Exam Const alert, oriented x3 and no apparent distress General Appearance: cooperative Resp clear to auscultation bilaterally Resp Narrative: Breathing easily at rest with no tachypnea and no conversational dyspnea. Gets a little labored with ambulation.....I suspect due to deconditioning.....has been mostly sedentary as an OP. Cardio regular rate, regular rhythm, no murmurs and no gallops Cardio Narrative: No ectopy GI normal to inspection, nondistended, normoactive bowel sounds, soft to palpation and non-tender Extremity no calf tenderness General Extremity: Negative for edema Neuro Neuro Narrative: no tremors today. Still feels as though she is leaning backward when walking. 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 Continue therapy 2. Cortrosyn stim test shows normal adrenal function. Will decrease the Prednisone to 2.5 mg daily for 10 days and then discontinue. 3. Increase Hydralazine to 75 mg TID. Goal for systolic is to keep it < 135. Restart Lasix in the AM AFTER I review the lab. Also restart Aldactone. Continue the compression to the legs. 4. Consult the recruiting coordinator for education and counselling in weight loss. 5. Restart the Paxil in the AM at 1/2 the dose (20 mg daily) 6. Would like to wean off the Ativan. 7. BMP in the AM 8. Restart gabapentin at 200 mg nightly......she has restless leg and some chronic back pain......this may be waking her up at night. Charges/Coding Visit Charges Inpatient E&M: 09871 Subs Hosp L1
--- NOTE | 2024-12-06 14:40 | SLEEP ---
Went to speak with patient about wearing her PAP, pt was laying in bed with it on about to take a nap. She stated she was told to wear it anytime she sleeps so she was attempting to nap with it. Tech told her that was great and if she had any difficulty with the mask or PAP to let nursing know and they can grab someone in the sleep lab to help her out.
[2024-12-06 15:43] VITALS: PULSE 72
[2024-12-06 17:02] VITALS: BP 172/52; PULSE 62; RESP 18; TEMP 36.9; O2SAT 93
[2024-12-06 20:50] VITALS: BP 187/73; PULSE 59
[2024-12-06 21:50] VITALS: PULSE 59; RESP 18; O2SAT 93
[2024-12-06 21:56] VITALS: BP 187/73; PULSE 59
[2024-12-07] VITALS (7 sets, daily range): BP systolic 140–163; BP diastolic 46–62; PULSE 60–65; RESP 16; TEMP 36.3–36.4; O2SAT 93–95
[2024-12-07 07:48] LABS: Hematocrit 30.4 % (37-47); Hemoglobin 10.5 g/dL (12.0-15.0)
[2024-12-07 08:43] LABS: Anion Gap 10 (5-15); BUN 22 mg/dL (4-19); BUN/Creat Ratio 24.6 RATIO (10-20); Calcium,Total 8.9 mg/dL (7.6-11.0); Carbon Dioxide 24.1 mmol/L (21.0-32.0); Chloride 92 mmol/L (98-108); Estimated Creatinine Clearance 58.12 ml/min (50-250); Glucose 105 mg/dL (70-99); Potassium 4.7 mmol/L (3.3-5.1)
[2024-12-07] MEDS: Lidocaine 5% Patch 2 PATCH TOPICAL (09:19)
[2024-12-07] MEDS: Fluticasone Propionate 110 MCG AER.W.ADAP 1 PUFF INHALATION ×2 (09:20→20:42)
[2024-12-07] MEDS: Vitamin B Comp W-C Capsule 1 CAP PO (09:20)
[2024-12-07] MEDS: Aspirin E.C. 81 MG Tablet PO (09:21)
[2024-12-07] MEDS: Heparin Injection (Vial) 5,000 UNIT/ML VIAL 5000 UNIT SC ×2 (09:22→20:43)
[2024-12-07] MEDS: Glycerin/Hypromellose/PEG400 15 ml Bottle 1 DRP EACH EYE ×2 (09:24→20:42)
--- NOTE | 2024-12-07 11:53 | PCM.PROGNOTE ---
Subjective Subjective Niurka was seen on team rounds today. Her dtr participated by phone. All questions were answered to their satisfaction. Afebrile VSS -the blood pressure has improved with increase in the hydralazine to 75 mg p.o. 3 times daily. The last 3 blood pressures have ranged from 140/46 to 142/53. Heart rate over the past 24 hours has ranged from 59-72. Maintaining appropriate oxygen saturation on RA while awake. Did not desaturate with ambulation......pulse ox 94% with ambulation. Oral intake - FOOD good FLUIDS good Discussed with nursing - no problems that need addressed Reviewed the THERAPY notes Medication list reviewed. Tells me that she slept well last night. She is fixated on needing a sleeping pill and despite sleeping well last night she is requesting a sleeping pill. I told her that I restarted the Gabapentin at 200 mg Q HS and it will help make her sleepy. The reason she is not sleeping well at night is she was napping throughout the day and she was having back and leg pain at night. She is now being compliant with CPAP. She denies CP, SOB at rest, cough, N/V/abd pain, dysuria. The tremors have resolved. Pt tells me that she would like not to go back on Paxil.......even at a reduced dose. We discussed using an SSRI that does not cause as much sedation and is not associated with tremors. She is agreeable to transitioning to a different SSRI and we have chosen Sertraline. Will start at 100 mg a day. She tells me that she no longer feels like she is falling backwards when she wlalks All lab drawn today was personally reviewed. Hemoglobin is 10.5 which is stable. Sodium is low at 127. FENA and FEUr are indeterminate. The urine sodium is not low and the urine osmo is not maximally dilute. 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 BUN is 22 which is down from 32 on 12/25 and her creatinine is 0.91, down from 1.02 on 12/04/24. She is not on fluid restriction or salt tabs. Objective Data Objective Data Vital Signs: Vital Signs Temp Pulse Resp BP Pulse Ox O2 Del Method O2 Flow Rate 97.6 F L 60 16 140/46 H 93 Room Air 0 12/07/24 06:00 08/07/25 09:27 12/07/24 06:00 12/07/24 09:27 12/07/24 06:00 12/07/24 06:00 12/04/24 21:04 FiO2 21 12/04/24 21:04 Oxygen Flow Rate (L/min) 0 Oxygen Delivery Method Room Air Weight: 244 lb 11.41 oz Body Mass Index (BMI) 40.7 Intake & Output: Intake and Output for Last 24 Hours 12/05/24 12/06/24 12/07/24 23:59 23:59 23:59 Intake Total 1720 / 1720 1465 / 1465 480 / 480 Output Total 1800 / 1800 3290 / 3290 650 / 650 Balance -80 / -80 -1825 / -1825 -170 / -170 Lab / Micro Data 12/07/24 07:19 12/07/24 07:19 Labs: Laboratory Results - last 24 hr 12/07/24 07:19: Hgb 10.5 L, Hct 30.4 L, Sodium 127 L, Potassium 4.7, Chloride 92 L, Carbon Dioxide 24.1, Anion Gap 10, BUN 22 H, Creatinine 0.91, Estim Creat Clear Calc 58.12, Est GFR (MDRD) Non-Af 63, BUN/Creatinine Ratio 24.6 H, Glucose 105 H, Calcium 8.9 Micro: Microbiology 12/05/24 11:58 Stool Stool Occult Blood (LOIS) - Final Occult Blood Positive Physical Exam Const alert, oriented x3 and no apparent distress General Appearance: cooperative Resp clear to auscultation bilaterally Resp Narrative: Breathing easily at rest with no tachypnea and no conversational dyspnea. Gets a little labored with ambulation.....I suspect due to deconditioning.....has been mostly sedentary as an OP. Cardio regular rate, regular rhythm, no murmurs and no gallops Cardio Narrative: No ectopy GI normal to inspection, nondistended, normoactive bowel sounds, soft to palpation and non-tender Extremity no calf tenderness General Extremity: Negative for edema Neuro Neuro Narrative: no tremors today. Still feels as though she is leaning backward when walking. 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 Continue therapy 2. Start salt tablets 1 g p.o. twice daily 3. Fluid restrict to 1500 cc daily. 4. Lasix 40 mg p.o. x 1 today. 5. Recheck a BMP Wednesday Charges/Coding Visit Charges Inpatient E&M: 81181 Subs Hosp L2
--- NOTE | 2024-12-07 13:00 | CASEMGMT ---
Social Work IDT met with patient at bedside and dtr via conference call for Team meeting. Discussed patient's progress in PT/OT/ST/SN/MD. Educated to Medicare approval of 11 days with estimated DC 12/14. Pt is progressing well and do not have any current concerns with DC home alone. SW discussed skilled HHC vs OP therapy. Pt prefers HHC. SW will continue to follow and assist with DC planning. Parisa Lema POWER SHOVEL OPERATOR LANDSCAPING MANAGER
--- NOTE | 2024-12-07 13:00 | CASEMGMT ---
Social Work IDT met with patient at bedside and dtr via conference call for Team meeting. Discussed patient's progress in PT/OT/ST/SN/MD. Educated to Medicare approval of 11 days with estimated DC 12/14. Pt is progressing well and do not have any current concerns with DC home alone. SW discussed skilled HHC vs OP therapy. Pt prefers HHC. SW will continue to follow and assist with DC planning. Parisa Lema GOVERNMENT AFFAIRS SPECIALIST SHRINK PIT OPERATOR
[2024-12-07] MEDS: 0.9% Saline Lock 10 ML Syringe IV (15:14)
[2024-12-08] VITALS (7 sets, daily range): BP systolic 125–152; BP diastolic 46–77; PULSE 60–64; RESP 16–17; TEMP 36–37.2; O2SAT 94–98
[2024-12-08] MEDS: Vitamin B Comp W-C Capsule 1 CAP PO (08:42)
[2024-12-08] MEDS: Aspirin E.C. 81 MG Tablet PO (08:42)
[2024-12-08] MEDS: Fluticasone Propionate 110 MCG AER.W.ADAP 1 PUFF INHALATION ×2 (08:45→21:17)
[2024-12-08] MEDS: Heparin Injection (Vial) 5,000 UNIT/ML VIAL 5000 UNIT SC ×2 (09:38→21:06)
[2024-12-08] MEDS: Glycerin/Hypromellose/PEG400 15 ml Bottle 1 DRP EACH EYE ×2 (09:38→21:16)
[2024-12-08] MEDS: Lidocaine 5% Patch 2 PATCH TOPICAL (09:43)
[2024-12-08] MEDS: Senna/Docusate Sodium 1 Tablet 2 TABLET PO ×2 (09:48→20:52)
[2024-12-09] VITALS (7 sets, daily range): BP systolic 106–132; BP diastolic 38–60; PULSE 62–66; RESP 15–18; TEMP 36.2–37.1; O2SAT 94–99
[2024-12-09] MEDS: Senna/Docusate Sodium 1 Tablet 2 TABLET PO ×2 (09:10→21:56)
[2024-12-09] MEDS: Vitamin B Comp W-C Capsule 1 CAP PO (09:10)
[2024-12-09] MEDS: Lidocaine 5% Patch 2 PATCH TOPICAL (09:11)
[2024-12-09] MEDS: Fluticasone Propionate 110 MCG AER.W.ADAP 1 PUFF INHALATION ×2 (09:11→21:44)
[2024-12-09] MEDS: Aspirin E.C. 81 MG Tablet PO (09:12)
[2024-12-09] MEDS: Heparin Injection (Vial) 5,000 UNIT/ML VIAL 5000 UNIT SC ×2 (09:12→21:44)
[2024-12-09] MEDS: Glycerin/Hypromellose/PEG400 15 ml Bottle 1 DRP EACH EYE ×2 (09:12→21:43)
[2024-12-10] VITALS (7 sets, daily range): BP systolic 132–165; BP diastolic 41–68; PULSE 61–81; RESP 16–17; TEMP 36.6–36.7; O2SAT 93–95
[2024-12-10 07:05] LABS: Anion Gap 10 (5-15); BUN 26 mg/dL (4-19); BUN/Creat Ratio 24.2 RATIO (10-20); Calcium,Total 8.6 mg/dL (7.6-11.0); Carbon Dioxide 22.1 mmol/L (21.0-32.0); Chloride 96 mmol/L (98-108); Estimated Creatinine Clearance 49.90 ml/min (50-250); Glucose 113 mg/dL (70-99); Potassium 4.4 mmol/L (3.3-5.1)
[2024-12-10] MEDS: Vitamin B Comp W-C Capsule 1 CAP PO (08:56)
[2024-12-10] MEDS: Glycerin/Hypromellose/PEG400 15 ml Bottle 1 DRP EACH EYE ×2 (08:56→22:16)
[2024-12-10] MEDS: Fluticasone Propionate 110 MCG AER.W.ADAP 1 PUFF INHALATION ×2 (08:56→22:28)
[2024-12-10] MEDS: Aspirin E.C. 81 MG Tablet PO (09:00)
[2024-12-10] MEDS: Heparin Injection (Vial) 5,000 UNIT/ML VIAL 5000 UNIT SC ×2 (09:01→22:28)
[2024-12-10] MEDS: Lidocaine 5% Patch 1 PATCH TOPICAL (11:18)
[2024-12-11] VITALS (10 sets, daily range): BP systolic 121–158; BP diastolic 41–73; PULSE 59–85; RESP 16; TEMP 36.8–37.1; O2SAT 94–97
[2024-12-11] MEDS: Vitamin B Comp W-C Capsule 1 CAP PO (07:47)
[2024-12-11] MEDS: Senna/Docusate Sodium 1 Tablet 2 TABLET PO ×2 (07:47→22:18)
[2024-12-11] MEDS: Aspirin E.C. 81 MG Tablet PO (07:47)
[2024-12-11] MEDS: Heparin Injection (Vial) 5,000 UNIT/ML VIAL 5000 UNIT SC ×2 (07:47→22:19)
[2024-12-11] MEDS: Fluticasone Propionate 110 MCG AER.W.ADAP 1 PUFF INHALATION ×2 (07:47→22:21)
[2024-12-11] MEDS: Glycerin/Hypromellose/PEG400 15 ml Bottle 1 DRP EACH EYE ×2 (07:47→22:15)
--- NOTE | 2024-12-11 08:56 | PN_ITS ---
Subjective Subjective Afebrile VSS -the blood pressure is well-controlled and heart rate is within normal limits. Maintaining appropriate oxygen saturation on RA Oral intake - FOOD good FLUIDS good Discussed with nursing - no problems that need addressed Reviewed the THERAPY notes Medication list reviewed. Recent lab was personally reviewed. Sodium is stable at 128 and the potassium is 4.4. The BUN is 26 with a creatinine of 1.06. She is complaining of feeling fatigued during the day and had a 2 and 1/2 hour nap yesterday. Has not been sleeping that much during the day when she has therapy. she has been compliant with CPAP, even with naps. Denies lightheadedness. Wants to be off Ativan and scheduled Tylenol. No CP, SOB at rest, cough. Objective Data Objective Data Vital Signs: Vital Signs Temp Pulse Resp BP Pulse Ox O2 Del Method O2 Flow Rate 98.2 F 85 16 133/41 H 94 Room Air 0 12/11/24 06:00 12/11/24 06:48 12/11/24 06:00 12/11/24 06:15 12/11/24 06:00 12/11/24 06:00 12/04/24 21:04 FiO2 21 12/04/24 21:04 Oxygen Flow Rate (L/min) 0 Oxygen Delivery Method Room Air Weight: 244 lb 11.41 oz Body Mass Index (BMI) 40.7 Intake & Output: Intake and Output for Last 24 Hours 12/09/24 12/10/24 12/11/24 23:59 23:59 23:59 Intake Total 1340 / 1340 1200 / 1200 240 / 240 Output Total 1000 / 1000 900 / 1200 500 / 500 Balance 340 / 340 300 / 0 -260 / -260 Lab / Micro Data 12/07/24 07:19 12/10/24 06:25 Micro: Microbiology 12/05/24 11:58 Stool Stool Occult Blood (LOIS) - Final Occult Blood Positive Physical Exam Const alert and no apparent distress General Appearance: cooperative Resp normal respiratory effort and clear to auscultation bilaterally Resp Narrative: No conversational dyspnea Effort and Inspection: Negative for tachypneic Cardio regular rate, regular rhythm and no gallops Cardio Narrative: No ectopyu GI normal to inspection, nondistended, normoactive bowel sounds, soft to palpation and non-tender Extremity no calf tenderness Extremity Narrative: PATRIA wraps are in place and she has no ankle edema. 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 Continue therapy 2. Change Tylenol to PRN 3. DC Ativan.....has only been taking 0.25 mg daily in the AM but, this may be contributing to daytime drowsiness. 4. Decrease the Gabapentin at HS to 100 mg since she is c/o fatigue in the AM 5. Continue CPAP 6. She has heme + stool and she is on Meloxicam and Prednisone. Will not continue Prednisone at DC. HGB is stable. 7. I suspect the hyponatremia is related to SSRI.......Cortrosyn stim test was normal. Recheck a urine sodium, urine osmolality and serum osmo in the AM and BMP. Continue the salt tabs and fluid restriction. Will decrease the Sertraline to 50 mg daily. This could possibly cause drowsiness........will give it later in the day. Charges/Coding Visit Charges Inpatient E&M: 53797 Subs Hosp L1
[2024-12-11] MEDS: Lidocaine 5% Patch 1 PATCH TOPICAL (09:47)
--- NOTE | 2024-12-11 15:52 | CASEMGMT ---
Social Work In preparation for DC, SW phoned referral to [facility] for PT/SW. Notified CCN of DC date to restart services. Notified palliative care of DC date. Plan: DC home 12/14, [facility] PT, CCN, Palliative Parisa Lema IT SECURITY SPECIALIST MACHINERY ENGINEER
--- NOTE | 2024-12-11 15:52 | CASEMGMT ---
Social Work In preparation for DC, SW phoned referral to [facility] for PT/SW. Notified CCN of DC date to restart services. Notified palliative care of DC date. Plan: DC home 12/14, [facility] PT, CCN, Palliative Parisa Lema BIG DATA ADMIN INTERNET SALES MANAGER
[2024-12-11 16:36] LABS: Osmolality, Urine 539 mOsm/KG
[2024-12-12] VITALS (7 sets, daily range): BP systolic 115–171; BP diastolic 40–76; PULSE 59–66; RESP 15–16; TEMP 36.6–37; O2SAT 93–96; BMI 41.0
[2024-12-12] MEDS: Fluticasone Propionate 110 MCG AER.W.ADAP 1 PUFF INHALATION ×2 (07:55→22:04)
[2024-12-12] MEDS: Glycerin/Hypromellose/PEG400 15 ml Bottle 1 DRP EACH EYE ×2 (07:55→22:05)
[2024-12-12] MEDS: Heparin Injection (Vial) 5,000 UNIT/ML VIAL 5000 UNIT SC ×2 (07:58→21:57)
[2024-12-12] MEDS: Lidocaine 5% Patch 1 PATCH TOPICAL (07:58)
[2024-12-12] MEDS: Aspirin E.C. 81 MG Tablet PO (07:58)
[2024-12-12] MEDS: Vitamin B Comp W-C Capsule 1 CAP PO (07:58)
[2024-12-12] MEDS: Senna/Docusate Sodium 1 Tablet 2 TABLET PO ×2 (07:59→22:04)
[2024-12-12 08:16] LABS: Osmolality, Serum 282 mOsm/KG (280-301)
[2024-12-12 08:22] LABS: Anion Gap 13 (5-15); BUN 30 mg/dL (4-19); BUN/Creat Ratio 29.1 RATIO (10-20); Calcium,Total 9.5 mg/dL (7.6-11.0); Carbon Dioxide 19.8 mmol/L (21.0-32.0); Chloride 97 mmol/L (98-108); Estimated Creatinine Clearance 52.04 ml/min (50-250); Glucose 100 mg/dL (70-99); Potassium 5.1 mmol/L (3.3-5.1)
--- NOTE | 2024-12-12 10:24 | CASEMGMT ---
Social Work SW spoke with pt to finalize DC plans. Pt requesting bariatric FWW for DC. SW agreed to coordinate and have delivered to the pt's room by [employer]. Dtr to transport pt on 12/14. Confirmed HHC, CCN, palliative. Pt states she is contacting [facility] for MOW. SW also ordered UNDERCUTTER with HHC to continue assisting with resources. Pt appreciative. No other needs noted. Parisa Lema UNDERCUTTER FIELD AIDE
--- NOTE | 2024-12-12 10:24 | CASEMGMT ---
Social Work SW spoke with pt to finalize DC plans. Pt requesting bariatric FWW for DC. SW agreed to coordinate and have delivered to the pt's room by [employer]. Dtr to transport pt on 12/14. Confirmed HHC, CCN, palliative. Pt states she is contacting [facility] Aging for MOW. SW also ordered FACULTY RESEARCH PHYSICIAN with HHC to continue assisting with resources. Pt appreciative. No other needs noted. Parisa Lema FACULTY RESEARCH PHYSICIAN LABORER LABORATORY
--- NOTE | 2024-12-12 10:27 | CASEMGMT ---
Social Work SW spoke with pt to finalize DC plans. Pt requesting bariatric FWW for DC. SW agreed to coordinate and have delivered to the pt's room by [employer]. Dtr to transport pt on 12/14. Confirmed HHC PT/SW/SN, CCN, palliative. Pt states she is contacting [facility] for MOW. SW also ordered DOG BEAUTICIAN with [facility] to continue assisting with resources. Pt appreciative. No other needs noted. Plan: DC home 12/14, [facility]SW, bariatric FWW, palliative, CCN Parisa Lema DOG BEAUTICIAN CARBONATION EQUIPMENT OPERATOR
--- NOTE | 2024-12-12 10:27 | CASEMGMT ---
Social Work SW spoke with pt to finalize DC plans. Pt requesting bariatric FWW for DC. SW agreed to coordinate and have delivered to the pt's room by [employer]. Dtr to transport pt on 12/14. Confirmed H[facility] PT/SW/SN, CCN, palliative. Pt states she is contacting [facility] for MOW. SW also ordered CARE MANAGER with [facility] to continue assisting with resources. Pt appreciative. No other needs noted. Plan: DC [facility] 12/14, [facility], bariatric FWW, palliative, CCN Parisa Lema CARE MANAGER FABRIC CUTTER
--- NOTE | 2024-12-12 10:50 | PCM.PROGNOTE ---
Subjective Subjective Afebrile VSS - Maintaining appropriate oxygen saturation on RA Oral intake - FOOD good FLUIDS - only took 800 PO yesterday. Wt is up again 2 lbs over the past week. She has no edema in the ankles and no pitting of the posterior thighs. Lungs are CTA. She is on an 1800 calorie diet and eating 75-100% of all her meals. 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 Discussed with nursing - no problems that need addressed Reviewed the THERAPY notes Medication list reviewed. She is still c/o feeling tired. Did not sleep well because the CPAP masking is leaking. There is air leaking around the mask when I place my hand above the mask........suspect the fatigue she is c/o during the day is related to poorly functioning CPAP mask rather than due to medication. Niurka wants to blame the fatigue on the meds.....oriana the Gabapentin and wants to DC Gabapentin. She does radicular pain in the leg today. She is concerned that her weight is still going up. She denies CP, SOB at rest, N/V/abd pain, dysuria and lightheadedness. I reviewed the results of the BMP done this morning. Sodium is up to 130 and potassium is 5.1 ....from 4.4 on 12/10. Hemolyzed? She is not on a potassium supplement but, she is on Cozaar 100 mg daily. The BUN is 30 and the creatinine is 1.02 which is stable. Serum osmolality is normal at 282 today and the calcium is also normal. Urine osmolality is 539 and urine sodium is 59. 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 Will emir to continue salt tabs and fluid restriction to 1500 cc/day. Objective Data Objective Data Vital Signs: Vital Signs Temp Pulse Resp BP Pulse Ox O2 Del Method O2 Flow Rate 97.8 F 60 16 115/40 L 93 Room Air 0 12/12/24 05:37 12/12/24 05:38 12/12/24 05:37 12/12/24 05:37 12/12/24 05:37 12/12/24 05:37 12/04/24 21:04 FiO2 21 12/04/24 21:04 Oxygen Flow Rate (L/min) 0 Oxygen Delivery Method Room Air Weight: 246 lb 4 oz Body Mass Index (BMI) 41.0 Intake & Output: Intake and Output for Last 24 Hours 12/10/24 12/11/24 12/12/24 23:59 23:59 23:59 Intake Total 1200 / 1200 800 / 800 100 / 100 Output Total 900 / 1200 1700 / 1700 350 / 350 Balance 300 / 0 -900 / -900 -250 / -250 Lab / Micro Data 12/07/24 07:19 12/12/24 07:11 Labs: Laboratory Results - last 24 hr 12/11/24 14:30: Urine Osmolality 539, Ur Random Sodium 59 12/12/24 07:11: Sodium 130 L, Potassium 5.1, Chloride 97 L, Carbon Dioxide 19.8 L, Anion Gap 13, BUN 30 H, Creatinine 1.02, Estim Creat Clear Calc 52.04, Est GFR (MDRD) Non-Af 55 L, BUN/Creatinine Ratio 29.1 H, Glucose 100 H, Serum Osmolality 282, Calcium 9.5 Micro: Microbiology 12/05/24 11:58 Stool Stool Occult Blood (LOIS) - Final Occult Blood Positive Physical Exam Const alert and no apparent distress Constitutional Narrative: She was napping when I entered her room. Has the CPAP on but, there is a air leak around the mask and I suspect it has not been effective the past couple days. Looks tired.......this was initially much improved when she was wearing the CPAP all night........the mask has not changed since admission........will D/W respiratory......may need to try a different mask? General Appearance: cooperative Resp normal respiratory effort and clear to auscultation bilaterally Resp Narrative: No conversational dyspnea Effort and Inspection: Negative for tachypneic Cardio regular rate, regular rhythm and no gallops Cardio Narrative: No ectopy GI normal to inspection, nondistended, normoactive bowel sounds, soft to palpation and non-tender Extremity no calf tenderness Extremity Narrative: PATRIA wraps are in place and she has no ankle edema. 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 Continue therapy 2. DC Gabapentin at pt request. 3. Respiratory will see her and work with the CPAP/mask fit 4. Continue fluid restriction and salt tabs. I suspect SIADH may be related to SSRI and would like to get her off SSRI's but, she was taking 40 mg of PAxil and I can not just stop the medication........would likely have withdrawal sx. She has been changed to Sertraline at 50 mg daily......will do this for 2 weeks and then decrease to 25 mg daily for 2 weeks and then DC. 5. Recheck the potassium in the AM. 6. Tremors have completely resolved with discontinuation of Paxil. Charges/Coding Visit Charges Inpatient E&M: 82994 Subs Hosp L1
--- NOTE | 2024-12-12 14:50 | NS ---
12/12/24: Dr. Munoz called RDN about patient gaining weight during this admission. Weight is up 4.297kg since admission to rehab. Will adjust diet to 1600kcal to help manage weight gain. 1450-1650kcal (14kcal/kg actual weight) 50-60 grams protein (1 gram/kg IBW) 1450-1650mL fluid (1mL/kcal) Marta Bhagat RDN, LD
[2024-12-13 06:00] VITALS: BP 115/48; PULSE 74; RESP 18; TEMP 36.6; O2SAT 92
[2024-12-13 06:13] LABS: Potassium 4.6 mmol/L (3.3-5.1)
[2024-12-13 06:47] VITALS: BP 123/46; PULSE 74
[2024-12-13] MEDS: Vitamin B Comp W-C Capsule 1 CAP PO (08:00)
[2024-12-13] MEDS: Glycerin/Hypromellose/PEG400 15 ml Bottle 1 DRP EACH EYE ×2 (08:00→21:33)
[2024-12-13] MEDS: Aspirin E.C. 81 MG Tablet PO (08:00)
[2024-12-13] MEDS: Heparin Injection (Vial) 5,000 UNIT/ML VIAL 5000 UNIT SC ×2 (08:03→21:34)
[2024-12-13] MEDS: Fluticasone Propionate 110 MCG AER.W.ADAP 1 PUFF INHALATION ×2 (08:03→21:35)
--- NOTE | 2024-12-13 12:08 | PCM.DC ---
Discharge Instructions DC O2, CPAP, BIPAP needs Home O2 Discharge instructions: No Dressing / Incision Discharge Activity: May Shower and Use Walker Weight Bearing Status: Full weight bearing Keep extremity elevated above heart level: Legs Additional Activity Instructions:: Don't sit for longer than 1 hour without getting up and moving around for at least 5 minutes. do the exercises given to you by the therapists every day. You have to keep moving and exercising or you will lose the muscle strength, have more pain and not be able to move. Dressing / Incision Call your doctor if you observe: Fever of 101 or Higher, Shortness of breath, Dizziness, Fainting spells, Swelling in the ankles, Chest pain, Increased palpitations (irregular heartbeat), Calf discomfort, Uncontrolled pain and - (STROKE symptoms: facial droop, slurred speech, inability to get words out, weakness on 1 side of the body and not the other, numbness on 1 side of the body and not the other, inability to maintain your balance sitting or standing, vertigo. ) Follow Up Care Please Follow Up With: Karen Johnson, OBSERVATORY DIRECTOR-C When: you have an appt scheduled......it is listed later in this document. You will also need to follow up with cardiology (Anabel Horne) and with Dr. Alcala. Test Results: Test results from this visit will be discussed in further detail at your follow-up appointment, if applicable. Pending Tests Upon Discharge: none Discharge Plan Admission Admit Date/Time: 12/03/24 16:09 Primary Reason for Your Visit: Debility due to generalized weakness and tremors. Attending Provider: Susana Munoz Primary Care Provider: Michael Puga Consulting Providers: Tavares Anthony Chi Instructions Additional Instructions / Restrictions: 1. I think the chronic fatigue and lack of motivation were due to not wearing CPAP and an improperly fitting mask rather than due to depression. The high dose of Paxil, 40 mg daily, caused the tremors and difficulty walking. Deconditioning also contributed to trouble walking. As we age if you do not keep moving/walking/exercising you get stiff and sore and then you do not want to move and you sit. Then you lose muscle strength and pretty soon you can't walk. A regular exercise program is critical in maintaining function and continuing to live independently as we age. It helps to have a friend to exercise with because you are more likely to show up because someone else is depending on you to show up and exercise. 2. Your sodium is low. 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 ADH is a hormone produced by the pituitary and it causes the absorption of excess water in the kidney. The excess water dilutes out the sodium. The problem really is not that you do not have enough sodium it is that you have too much free water in the body diluting the sodium out. I suspect the SIADH is related to Paxil......Paxil is an SSRI (serotonin reuptake inhibitor) and all medications in this class can cause SIADH. You are taking a SSRI called sertraline (also called Zoloft). We switched to Zoloft because it does not cause the tremors we see with Paxil. The Sertraline is going to be tapered off over the next month. You can not suddenly stop an SSRI after you have been taking it mcfp because you will have withdrawal. there are many other antidepressants if you need one BUT, it you are wearing the CPAP as directed with a good fitting mask you may not need and antidepressant. My hope is that if you are off an SSRI your sodium with normalize and you can get off the salt tabs. For now we need to continue the salt tabs and the fluid restriction. Do not drink more than 1,500 cc's a day of fluid. This is equivalent to 50 ounces. 3. You have gained strength while on rehab and you are doing well ambulating with the walker. I think you will do great at home. You are also much more alert than you were at admission to rehab and you have no tremors. Good for you! 4. Your BP was not well controlled at admission to rehab and we had to change the dosages. You were taking Hydralazine 50 mg 2-3 times a day and you will now be taking 75 mg 3 times a day. The 50 mg tabs are NOT scored so they are very difficult to break in half. I gave you prescriptions for 50 mg tabs and 25 mg tabs. You will take one 50 mg tab and one 25 mg tab 3 times a day for a total of 75 mg 3 times a day. 5. You are no longer going to be taking Prednisone. You are also off Ativan and doing well. Ativan is a drug that can be addictive. As we get older this medication is associated with confusion, drowsiness and dysequilibrium leading to increased falls. If you are feeling anxious or depressed definitely talk to Karen about this. There are many relaxation techniques that can be utilized to help control anxiety.........breathing exercises and yoga are 2 of these techniques. 6. We have NOT had you on Lasix or Spironolactone since you arrived on rehab. You do not have any significant swelling. The compression wraps on the legs and elevation of your legs when sitting in a chair are controlling the swelling without diuretics. Getting rid of the Prednisone also helps decrease swelling.........Prednisone cause fluid retention. It is always best to sleep in a bed at night because the legs are more elevated above the level of the heart and usually the swelling (if there is any) is gone in the AM. 7. You are anemic and this is new for you. You had blood in the stool when we checked it. Both Meloxicam and Prednisone can cause ulcers in the stomach. There are many reasons why people can have blood in the stool. You nade to follow up with a GI (gastrointestinal) doctor to have a look in the stomach and intestine if the anemia persists. 8. It has been a pleasure getting to know you Niurka. I am very happy with the progress you have made on rehab. If you have any questions after you leave rehab please do not hesitate to call me!. OFFICE: [phone] CELL: [phone] NURSES STATION ON REHAB: [phone] Discharge Orders/Prescriptions Prescriptions: New acetaminophen 500 mg Tablet 1,000 mg PO Q6H PRN PRN (Reason: Pain 1-10 Or Fever) Qty: 90 0RF hydralazine 50 mg Tablet 75 mg PO TID Qty: 90 0RF Rx Instructions: you will take 1 50 mg tablet and 1 25 mg tablet 3 times a day to equal 75 mg 3 times a day gabapentin 100 mg Capsule 100 mg PO QHS Qty: 30 0RF lidocaine 5 % Adhesive Patch,Medicated 1 patch topical DAILY Qty: 30 0RF Protocol: *Topical Application Instructions APPLICATION INSTRUCTIONS: left outer hip Rx Instructions: remove the patch 12 H after it is applied. sodium chloride 1,000 mg Tablet,Soluble 1,000 mg PO BID Qty: 60 0RF sertraline 25 mg tablet See Rx Instructions .ROUTE .COMPLEX Qty: 42 0RF Rx Instructions: take 2 tabs at bedtime for 2 weeks and then decrease to 1 tab at bedtime for 2 weeks then discontinue hydralazine 25 mg tablet 25 mg PO TID Qty: 90 0RF Rx Instructions: take 1 50 mg tab and 1 25 mg tab 3 times a day for a total of 75 mg 3 times a day. Continued aspirin [Adult Low Dose Aspirin] 81 mg tablet,delayed release (DR/EC) 81 mg PO QDAY Qty: 90 3RF rosuvastatin 10 mg tablet 10 mg PO DAILY coenzyme Q10 [Co Q-10] 100 mg capsule 100 mg PO DAILY sucralfate 100 mg/mL suspension 10 ml PO TID PRN (Reason: digestion) Patient Comments: TAKE 10 ML BY MOUTH 4 TIMES DAILY levothyroxine 50 mcg capsule 50 mcg PO QDAY omeprazole 20 mg capsule,delayed release(DR/EC) 20 mg PO QDAY cyclosporine [Restasis] 0.05 % dropperette 1 drp EACH EYE Q12H albuterol sulfate [ProAir HFA] 90 mcg/actuation HFA aerosol inhaler 2 puff inhalation Q6H PRN (Reason: shortness of breath or wheezing) Qty: 6.7 0RF vitamin B complex [Balanced B-50] Tablet 1 tab PO DAILY fluticasone propionate 110 mcg/actuation HFA aerosol inhaler 1 inh inhalation Q12H azelastine 0.05 % drops 1 drp ophthalmic (eye) BID PRN (Reason: eye drops) meloxicam 15 mg tablet 15 mg PO DAILY Qty: 1 0RF Rx Instructions: Take this with food. diltiazem HCl 240 mg capsule,extended release 24hr 240 mg PO QHS Qty: 90 3RF amiodarone 200 mg tablet 200 mg PO DAILY Qty: 90 3RF losartan 100 mg tablet 100 mg PO DAILY Qty: 90 3RF Discontinued spironolactone 25 mg tablet 25 mg PO DAILY Qty: 30 11RF paroxetine HCl 40 mg tablet 40 mg PO QDAY lorazepam 0.5 MG tablet 0.5 mg PO BID PRN PRN (Reason: Anxiety) Qty: 6 0RF gabapentin 100 mg capsule 300 mg PO QHS Qty: 12 0RF Patient Comments: per pt to start taking 300mg tonight per pcp instruction. hydralazine 50 mg Tablet 50 mg PO TID Qty: 0 0RF prednisone 10 mg tablet 10 mg PO DAILY furosemide 20 mg tablet 20 mg PO QDAY Referrals / Follow Up: Karen Johnson, OBSERVATORY DIRECTOR-C [[facility]] - 12/20/24 10:00 am Disposition Disposition (needs filled in before D/C Order can be placed): Home Health Service
[2024-12-13] MEDS: Lidocaine 5% Patch 1 PATCH TOPICAL (13:43)
[2024-12-13 14:05] VITALS: BP 141/46; PULSE 60
[2024-12-13 18:00] VITALS: BP 160/53; PULSE 64; RESP 18; TEMP 36.8; O2SAT 96
[2024-12-13 20:00] VITALS: BP 151/54; PULSE 62; RESP 18; O2SAT 96
[2024-12-13 21:31] VITALS: BP 151/54; PULSE 62
[2024-12-14 06:00] VITALS: BP 110/57; PULSE 69; RESP 16; TEMP 36.6; O2SAT 93
[2024-12-14 06:09] VITALS: BP 110/57; PULSE 69
[2024-12-14] MEDS: Aspirin E.C. 81 MG Tablet PO (08:40)
[2024-12-14] MEDS: Vitamin B Comp W-C Capsule 1 CAP PO (08:40)
[2024-12-14] MEDS: Glycerin/Hypromellose/PEG400 15 ml Bottle 1 DRP EACH EYE (08:41)
[2024-12-14] MEDS: Lidocaine 5% Patch 1 PATCH TOPICAL (08:41)
[2024-12-14] MEDS: Fluticasone Propionate 110 MCG AER.W.ADAP 1 PUFF INHALATION (08:41)
[2024-12-14] MEDS: Heparin Injection (Vial) 5,000 UNIT/ML VIAL 5000 UNIT SC (08:41)
[2024-12-14 08:45] VITALS: BP 131/77; PULSE 61
[2024-12-14 08:49] VITALS: BP 173/60; PULSE 66; RESP 16; TEMP 36.9; O2SAT 95
--- NOTE | 2024-12-14 09:06 | DS.PCM_ITS ---
Providers Date of Admission: 12/03/24 Date of Discharge: 12/14/24 Primary Care Physician: Karen Johnson NP Reason For Visit: DEBILITY Diagnosis Discharge Diagnosis (1) Debility: Status: Acute Code(s): R53.81 - Other malaise (2) Generalized weakness: Status: Acute Code(s): R53.1 - Weakness (3) Disequilibrium: Status: Acute Code(s): R42 - Dizziness and giddiness Plan: Much improved at DC from rehab. I suspect this was due to tremors and de- conditioning and sleep deprivation. (4) Tremor: Status: Resolved Code(s): R25.1 - Tremor, unspecified Plan: Due to side effects of high dose Paxil. (5) Hyponatremia: Status: Acute Code(s): E87.1 - Hypo-osmolality and hyponatremia Plan: Lab consistent with SIADH. Suspect this is related to use of SSRI. Being discharged on salt tabs and fluid restriction........1,500 cc/day. Sodium is 130 at the time of DC from rehab. (6) Normochromic normocytic anemia: Status: Acute Code(s): D64.9 - Anemia, unspecified Plan: This is new. She has been taking Meloxicam and Prednisone. HGB is stable at 10.5 at the time of DC from rehab. Denies N/V/epigastric pain. She is taking Protonix chronically. (7) Moderate left ventricular hypertrophy: Status: Chronic Code(s): I51.7 - Cardiomegaly (8) Pulmonary hypertension: Status: Chronic Code(s): I27.20 - Pulmonary hypertension, unspecified Plan: TTE on 11/30/24 estimates the RV systolic pressure to be 65. (9) Tricuspid regurgitation: Status: Chronic Code(s): I07.1 - Rheumatic tricuspid insufficiency Qualifiers: Cardiac valve disease etiology: nonrheumatic Qualified Code(s): I36.1 - Nonrheumatic tricuspid (valve) insufficiency (10) Left atrial enlargement: Status: Chronic Code(s): I51.7 - Cardiomegaly (11) Morbid obesity with BMI of 40.0-44.9, adult: Status: Chronic Code(s): E66.01 - Morbid (severe) obesity due to excess calories; Z68.41 - Body mass index [BMI] 40.0-44.9, adult Plan: Gained weight on Prednisone.......being inactive likely contributed to this as well. (12) USP current use of amiodarone: Status: Chronic Code(s): Z79.899 - Other prison (current) drug therapy (13) History of permanent cardiac pacemaker placement: Status: Chronic Code(s): Z95.0 - Presence of cardiac pacemaker Plan: Inserted for SSS. (14) Paroxysmal atrial fibrillation: Status: Chronic Code(s): I48.0 - Paroxysmal atrial fibrillation (15) Hypothyroidism: Status: Chronic Code(s): E03.9 - Hypothyroidism, unspecified Qualifiers: Hypothyroidism type: unspecified Qualified Code(s): E03.9 - Hypothyroidism, unspecified Plan: TSH on 11/29/2024 was 2.12. (16) Essential (primary) hypertension: Status: Chronic Code(s): I10 - Essential (primary) hypertension Plan: Hydralazine was increased to 75 mg TID while on rehab. Has been off Lasix and Aldactone. No edema with elevation and compression wraps. (17) Hyperlipidemia: Status: Chronic Code(s): E78.5 - Hyperlipidemia, unspecified Qualifiers: Hyperlipidemia type: pure hypercholesterolemia Qualified Code(s): E 78.00 - Pure hypercholesterolemia, unspecified; E78.0 - Pure hypercholesterolemia (18) Heme positive stool: Status: Acute Code(s): R19.5 - Other fecal abnormalities Plan 1. DC home with C PT/SW/SN, palliative, CCN. No DME needs. 2. F/U with Karen Johnson NP for primary care. She requested to change PCP. 3. Follow-up with Dr. Owen Alcala for obstructive sleep apnea/pulmonary hypertension 4. Follow-up with Anabel Horne NP for cardiology 5. She is now off prednisone (cortrosyn stim test showed normal adrenal function). 6. No longer taking Paxil or Ativan. 7. Has a new CPAP mask and knows she is to use CPAP ANYTIME she is sleeping.......even for naps. The mask she had been using had a big air leak and apparently , per sleep lab, the mask she was using was recalled a few years ago because it was found to interfere with PM function and Niurka has a PM. 8. Sertraline to be tapered off over the next month. Would recheck a BMP off SSRI and if the sodium is normal trial discontinuing Salt tabs and fluid restriction. 9. Referred to [facility] for calf compression wraps with velcro. 10. Defer to cardiology whether to restart diuretics. Medications at Discharge Home Medications aspirin 81 mg tablet,delayed release (Adult Low Dose Aspirin) 81 mg PO QDAY heart health #90 tabs 12/27/18 coenzyme Q10 100 mg capsule (Co Q-10) 100 mg PO DAILY supplement 01/23/20 rosuvastatin 10 mg tablet 10 mg PO DAILY cholesterol 01/23/20 sucralfate 100 mg/mL oral suspension 10 ml PO TID PRN digestion 11/25/21 cyclosporine 0.05 % eye drops in a dropperette (Restasis) 1 drp EACH EYE Q12H eye health 09/27/23 albuterol sulfate 90 mcg/actuation aerosol inhaler (ProAir HFA) 2 puff inhalation Q6H PRN shortness of breath or wheezing #6.7 grams 10/02/23 levothyroxine 50 mcg capsule 50 mcg PO QDAY Thyroid 01/25/24 fluticasone propionate 110 mcg/actuation HFA aerosol inhaler 1 inh inhalation Q12H SOB/Wheezing 04/30/24 vitamin B complex (Balanced B-50 tablet) 1 tab PO DAILY supplement 04/30/24 diltiazem HCl 240 mg capsule,extended release 24 hr 240 mg PO QHS heart #90 caps 05/15/24 amiodarone 200 mg tablet 200 mg PO DAILY heart #90 tabs 07/20/24 losartan 100 mg tablet 100 mg PO DAILY blood pressure #90 tabs 09/11/24 azelastine 0.05 % eye drops 1 drp ophthalmic (eye) BID PRN eye drops 11/02/24 omeprazole 20 mg capsule,delayed release 20 mg PO QDAY GERD 11/02/24 acetaminophen 500 mg tablet 1,000 mg (2 x 500 mg) PO Q6H PRN PRN Pain 1-10 Or Fever #90 tabs 12/13/24 gabapentin 100 mg capsule 100 mg PO QHS #30 caps 12/13/24 hydralazine 25 mg tablet 25 mg PO TID #90 tabs 12/13/24 hydralazine 50 mg tablet 75 mg (1.5 x 50 mg) PO TID #90 tabs 12/13/24 lidocaine 5 % topical patch 1 patch topical DAILY #30 ea 12/13/24 meloxicam 15 mg tablet 15 mg PO DAILY Joint pain #1 TAB 12/13/24 sertraline 25 mg tablet See Rx Instructions .Route .COMPLEX #42 tabs 12/13/24 sodium chloride 1,000 mg soluble tablet 1,000 mg PO BID #60 tabs 12/13/24 Hospital Course Operations None Procedures Transthoracic echo (Normal LV size. Left ventricular systolic function is normal. Moderate concentric left ventricular hypertrophy. The left ventricular ejection fraction is 60 %. Pulmonary artery systolic pressure is 65 mmHg. Moderate pulmonary hypertension. 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 on 11/29/24 c/o tremors in the UE's and LE's which were new. Initial blood pressure in the emergency room was 229/78. A stat noncontrast CT brain showed no acute process. She could not have a MRI of the brain due to incompatibility with her pacemaker. She had a follow-up CT brain on 11/30/2024 and it showed no acute abnormalities. TTE on 11/29/24 showed moderate concentric left ventricular hypertrophy with normal left ventricular systolic function. EF was estimated at 60% and there were no regional wall motion abnormalities. The right ventricle is of normal size with normal systolic function. The left atrium was mildly enlarged and the right atrium was normal. PA systolic was estimated at 65 mmHg which is consistent with moderate pulmonary hypertension. There was 2+ TR. Significant lab in the hospital included a HGB of 10.6, down from 12.4 on 10/31/2024 and a sodium of 127 on 12/03/2024 which was down from 133 at admission to the hospital. A TSH was normal. Consult was obtained with neurology who had no acute recommendations other than PT/OT. She was seen by PT/OT and admission to acute rehab was recommended. She was transferred to the acute inpt rehab unit at [facility] on 12/03/24 for 3 hours of therapy daily to restore function/independence at or near her level prior to admission the the hospital. Serum sodium, serum and osmolality and urine osmolality were consistent with SIADH. I suspect the SIADH is due to high-dose Paxil at 40 mg daily. She had previously been taking 20 mg daily and the dose was increased to 40 mg due to complaints of chronic fatigue and lack of motivation. I suspect the chronic fatigue and lack of motivation were related to noncompliance with CPAP/chronic sleep deprivation rather than undertreated depression. The tremors were also suspected to be secondary to Paxil as this is a known side effect of Paxil. She had also been taking Prednisone.......but, was not sure how much she was taking. She was placed on Prednisone by palliative care........to help her breathing? Prednisone was held and a Cortrosyn stimulation test was done and this revealed normal adrenal function. Prednisone was discontinued. She had been taking Ativan 0.25 mg up to twice daily for anxiety. This was weaned off prior to DC from rehab. She has a known hx of GI bleed in the past and was taking Meloxicam and Prednisone at admission to the hospital. A hemoccult was obtained and was +. She was already taking Protonix 20 mg daily and she was asymptomatic so we continued this dose. HGB is stable at 10.5 at DC from rehab. This can be further evaluated as an OP. Paxil was discontinued. After a few days she was started on Sertraline 50 mg daily to prevent withdrawal sx. The Sertraline is going to be tapered off over the moth following DC from rehab. I hope that getting her off an SSRI will resolve the SIADH which I suspected is related to SSRI use. BUN/CREAT ratio at admission to rehab was 31.5 and Lasix and Spironolactone were placed on hold. PATRIA wraps were applied to the LE's and she kept her legs elevated while sitting in the recliner. At DC from rehab she has no edema in the ankles. Will defer to cardiology to restart diuretics if needed. She was encouraged to go to [facility] to purchase calf compression stockings with Velcro straps (for ease of application). She will elevate her legs when sitting in a chair and I encouraged her to sleep in bed at night so the legs could be close to the level of the heart to decrease edema. Niurka had a large air leak around the current CPAP mask she was using. Sleep lab came over to see if they could help and actually the mask she has been using was recalled a few years ago because it was found to interfere with PM function. Niurka has a PM for hx of SSS. She was given a new mask and it is working well at the time of DC from rehab. She is going to continue follow up with Dr. Alcala for JOSE and pulmonary HTN. Niurka did very well in therapy. At the time of DC she is able to do 11 sit to stands in 30 seconds using her bilateral upper extremities to rise. She has completed the turn up and Go test in 17.7 seconds with a rollator walker at standby assist. She can ascend/descend two 6 inch steps with 1 handrail at contact-guard assist and 5 steps of various heights with 2 handrails at standby assist. She is also able to do a curb step with a rollator walker at contact- guard assist. She has ambulated 130 feet with an uplift rollator walker at mod I. She is mod I with eating, grooming, bathing she is independent with upper body dressing and standby assist for lower body dressing. She is supervision for tub/shower transfer. She is able to complete item she needs and has simulated doing laundry at supervision. Niurka was discharged on 04/15/25 to home and will have HHC. She has no DME needs. She will follow up with Dr. Alcala, Anabel Horne, palliative care and Karen Johnson NP for primary care. Physical Exam Const alert and no apparent distress Constitutional Narrative: She has been using the new CPAP mask for the past 2 nights and she is much more alert today. General Appearance: cooperative; Negative for anxious HEENT normocephalic, head/scalp atraumatic and hearing grossly normal bilaterally Eyes PERRL, EOMs intact bilaterally, conjunctivae normal and no scleral icterus Eyes Narrative: No discharge from the eyes. Neck supple Chest Chest: symmetrical chest wall rise Resp normal respiratory effort and clear to auscultation bilaterally Resp Narrative: No conversational dyspnea Effort and Inspection: Negative for tachypneic Cardio regular rate, regular rhythm and no gallops Cardio Narrative: No ectopy GI normal to inspection, nondistended, normoactive bowel sounds, soft to palpation and non-tender GI Narrative: No guarding with palpation Bladder / Kidney Exam: no CVA tenderness Extremity no calf tenderness Extremity Narrative: PATRIA wraps are in place and she has no ankle edema. No pitting edema of the posterior thighs General Extremity: Negative for edema Skin General Skin Exam: Negative for jaundice Rashes: no rashes Neuro oriented x3, CN's II-XII intact bilaterally and moves all extremities Psych cooperative and affect normal Appearance: grossly normal, appropriate and well kempt; Negative for unkempt Attitude: calm Activity / Motor Behavior: appropriate eye contact Mood & Affect: Negative for depressed or anxious Weight / BMI Weight Weight: 246 lb 4 oz Body Mass Index (BMI) 41.0 ABG / Lab / Microbiology Data 12/07/24 07:19 12/13/24 05:49 Microbiology: Microbiology 12/05/24 11:58 Stool Stool Occult Blood (LOIS) - Final Occult Blood Positive D/C Instructions Weight Bearing Status: Full weight bearing Keep extremity elevated above heart level: Legs Additional Activity Instructions: Don't sit for longer than 1 hour without getting up and moving around for at least 5 minutes. do the exercises given to you by the therapists every day. You have to keep moving and exercising or you will lose the muscle strength, have more pain and not be able to move. Call your doctor if you observe: Fever of 101 or Higher, Shortness of breath, Dizziness, Fainting spells, Swelling in the ankles, Chest pain, Increased palpitations (irregular heartbeat), Calf discomfort, Uncontrolled pain and - (STROKE symptoms: facial droop, slurred speech, inability to get words out, weakness on 1 side of the body and not the other, numbness on 1 side of the body and not the other, inability to maintain your balance sitting or standing, vertigo. ) DC O2, CPAP, BIPAP Needs Home O2 Discharge instructions: No Pending Tests Upon Discharge: none Please Follow Up With: Karen Johnson Marilee, PRODUCT DEMONSTRATOR-C When: you have an appt scheduled......it is listed later in this document. You will also need to follow up with cardiology (Anabel Horne) and with Dr. Alcala. Meaningful Use Info Meaningful Use Meaningful Use Diagnoses (Choose all that apply): None applicable Discharge Plan Admission Admit Date/Time: 12/03/24 16:09 Primary Reason for Your Visit: Debility due to generalized weakness and tremors. Attending Provider: Susana Munoz Primary Care Provider: Micheal Puga Consulting Providers: Tavares Anthony Chi Instructions Additional Instructions / Restrictions: 1. I think the chronic fatigue and lack of motivation were due to not wearing CPAP and an improperly fitting mask rather than due to depression. The high dose of Paxil, 40 mg daily, caused the tremors and difficulty walking. Deconditioning also contributed to trouble walking. As we age if you do not keep moving/walking/exercising you get stiff and sore and then you do not want to move and you sit. Then you lose muscle strength and pretty soon you can't walk. A regular exercise program is critical in maintaining function and continuing to live independently as we age. It helps to have a friend to exercise with because you are more likely to show up because someone else is depending on you to show up and exercise. 2. Your sodium is low. 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 ADH is a hormone produced by the pituitary and it causes the absorption of excess water in the kidney. The excess water dilutes out the sodium. The problem really is not that you do not have enough sodium it is that you have too much free water in the body diluting the sodium out. I suspect the SIADH is related to Paxil......Paxil is an SSRI (serotonin reuptake inhibitor) and all medications in this class can cause SIADH. You are taking a SSRI called sertraline (also called Zoloft). We switched to Zoloft because it does not cause the tremors we see with Paxil. The Sertraline is going to be tapered off over the next month. You can not suddenly stop an SSRI after you have been taking it prison because you will have withdrawal. there are many other antidepressants if you need one BUT, it you are wearing the CPAP as directed with a good fitting mask you may not need and antidepressant. My hope is that if you are off an SSRI your sodium with normalize and you can get off the salt tabs. For now we need to continue the salt tabs and the fluid restriction. Do not drink more than 1,500 cc's a day of fluid. This is equivalent to 50 ounces. 3. You have gained strength while on rehab and you are doing well ambulating with the walker. I think you will do great at home. You are also much more alert than you were at admission to rehab and you have no tremors. Good for you! 4. Your BP was not well controlled at admission to rehab and we had to change the dosages. You were taking Hydralazine 50 mg 2-3 times a day and you will now be taking 75 mg 3 times a day. The 50 mg tabs are NOT scored so they are very difficult to break in half. I gave you prescriptions for 50 mg tabs and 25 mg tabs. You will take one 50 mg tab and one 25 mg tab 3 times a day for a total of 75 mg 3 times a day. 5. You are no longer going to be taking Prednisone. You are also off Ativan and doing well. Ativan is a drug that can be addictive. As we get older this medication is associated with confusion, drowsiness and dysequilibrium leading to increased falls. If you are feeling anxious or depressed definitely talk to Karen about this. There are many relaxation techniques that can be utilized to help control anxiety.........breathing exercises and yoga are 2 of these techniques. 6. We have NOT had you on Lasix or Spironolactone since you arrived on rehab. You do not have any significant swelling. The compression wraps on the legs and elevation of your legs when sitting in a chair are controlling the swelling without diuretics. Getting rid of the Prednisone also helps decrease swelling.........Prednisone cause fluid retention. It is always best to sleep in a bed at night because the legs are more elevated above the level of the heart and usually the swelling (if there is any) is gone in the AM. 7. You are anemic and this is new for you. You had blood in the stool when we checked it. Both Meloxicam and Prednisone can cause ulcers in the stomach. There are many reasons why people can have blood in the stool. You nade to follow up with a GI (gastrointestinal) doctor to have a look in the stomach and intestine if the anemia persists. 8. It has been a pleasure getting to know you Niurka. I am very happy with the progress you have made on rehab. If you have any questions after you leave rehab please do not hesitate to call me!. OFFICE: [phone] CELL: [phone] NURSES STATION ON REHAB: [phone] Discharge Orders/Prescriptions Prescriptions: New acetaminophen 500 mg Tablet 1,000 mg PO Q6H PRN PRN (Reason: Pain 1-10 Or Fever) Qty: 90 0RF hydralazine 50 mg Tablet 75 mg PO TID Qty: 90 0RF Rx Instructions: you will take 1 50 mg tablet and 1 25 mg tablet 3 times a day to equal 75 mg 3 times a day gabapentin 100 mg Capsule 100 mg PO QHS Qty: 30 0RF lidocaine 5 % Adhesive Patch,Medicated 1 patch topical DAILY Qty: 30 0RF Protocol: *Topical Application Instructions APPLICATION INSTRUCTIONS: left outer hip Rx Instructions: remove the patch 12 H after it is applied. sodium chloride 1,000 mg Tablet,Soluble 1,000 mg PO BID Qty: 60 0RF sertraline 25 mg tablet See Rx Instructions .ROUTE .COMPLEX Qty: 42 0RF Rx Instructions: take 2 tabs at bedtime for 2 weeks and then decrease to 1 tab at bedtime for 2 weeks then discontinue hydralazine 25 mg tablet 25 mg PO TID Qty: 90 0RF Rx Instructions: take 1 50 mg tab and 1 25 mg tab 3 times a day for a total of 75 mg 3 times a day. Continued aspirin [Adult Low Dose Aspirin] 81 mg tablet,delayed release (DR/EC) 81 mg PO QDAY Qty: 90 3RF rosuvastatin 10 mg tablet 10 mg PO DAILY coenzyme Q10 [Co Q-10] 100 mg capsule 100 mg PO DAILY sucralfate 100 mg/mL suspension 10 ml PO TID PRN (Reason: digestion) Patient Comments: TAKE 10 ML BY MOUTH 4 TIMES DAILY levothyroxine 50 mcg capsule 50 mcg PO QDAY omeprazole 20 mg capsule,delayed release(DR/EC) 20 mg PO QDAY cyclosporine [Restasis] 0.05 % dropperette 1 drp EACH EYE Q12H albuterol sulfate [ProAir HFA] 90 mcg/actuation HFA aerosol inhaler 2 puff inhalation Q6H PRN (Reason: shortness of breath or wheezing) Qty: 6.7 0RF vitamin B complex [Balanced B-50] Tablet 1 tab PO DAILY fluticasone propionate 110 mcg/actuation HFA aerosol inhaler 1 inh inhalation Q12H azelastine 0.05 % drops 1 drp ophthalmic (eye) BID PRN (Reason: eye drops) meloxicam 15 mg tablet 15 mg PO DAILY Qty: 1 0RF Rx Instructions: Take this with food. diltiazem HCl 240 mg capsule,extended release 24hr 240 mg PO QHS Qty: 90 3RF amiodarone 200 mg tablet 200 mg PO DAILY Qty: 90 3RF losartan 100 mg tablet 100 mg PO DAILY Qty: 90 3RF Discontinued spironolactone 25 mg tablet 25 mg PO DAILY Qty: 30 11RF paroxetine HCl 40 mg tablet 40 mg PO QDAY lorazepam 0.5 MG tablet 0.5 mg PO BID PRN PRN (Reason: Anxiety) Qty: 6 0RF gabapentin 100 mg capsule 300 mg PO QHS Qty: 12 0RF Patient Comments: per pt to start taking 300mg tonight per pcp instruction. hydralazine 50 mg Tablet 50 mg PO TID Qty: 0 0RF prednisone 10 mg tablet 10 mg PO DAILY furosemide 20 mg tablet 20 mg PO QDAY Referrals / Follow Up: Karen Johnson, PRODUCT DEMONSTRATOR-C [[facility]] - 12/20/24 10:00 am Disposition Disposition (needs filled in before D/C Order can be placed): Home Health Service Charges/Coding Visit Charges Inpatient E&M: 28049 Init Hosp L3
== END 2024-12-14 13:55 | disposition home health service (06) | DRG 74 ==
PROVIDERS: Nurse Practitioner Family; Admitting Provider Family Medicine Geriatric Medicine; PCP Student in an Organized Health Care Education/Training Program; Visit Provider Internal Medicine
DX: G62.9 Polyneuropathy, unspecified (principal); E22.2 Syndrome of inappropriate secretion of antidiuretic hormone; Z68.41 Body mass index [BMI] 40.0-44.9, adult; K92.1 Melena; I27.20 Pulmonary hypertension, unspecified; I49.5 Sick sinus syndrome; I11.0 Hypertensive heart disease with heart failure; G25.81 Restless legs syndrome; I48.0 Paroxysmal atrial fibrillation; D64.9 Anemia, unspecified; I07.1 Rheumatic tricuspid insufficiency; E03.9 Hypothyroidism, unspecified; I50.9 Heart failure, unspecified; E78.00 Pure hypercholesterolemia, unspecified; G47.33 Obstructive sleep apnea (adult) (pediatric); F41.9 Anxiety disorder, unspecified; R25.1 Tremor, unspecified; E66.813 Obesity, class 3; Z79.890 Hormone replacement therapy; Z79.899 Other long term (current) drug therapy; Z86.73 Personal history of transient ischemic attack (TIA), and cerebral infarction without residual deficits; Z95.0 Presence of cardiac pacemaker
CPT/HCPCS: 36415; 70450; 80048; 80053; 80061; 80307; 82274; 82533; 82570; 82746; 83735; 83930; 83935; 84100; 84132; 84300; 84540; 85014; 85018; 85025; 85027; 92507; 92523; 94640; 94668; 94762; 97110; 97116; 97129; 97130; 97162; 97166; 97167; 97530; 97535; 97802; 97803; A4216; J0834

== ENCOUNTER → 2024-12-20 | Outpatient (CLI) | payer MEDICARE, OTHER, SELFPAY ==
[2024-12-20 12:46] LABS: Hematocrit 28.9 % (37-47); Hemoglobin 9.3 g/dL (12.0-15.0); Immature Granulocytes Count 0.060 X10^3/uL (0.0-0.0); Mean Corp Hgb Conc 32.2 g/dL (32-36); Mean Corpuscular Volume 93.8 fL (81-99); Mean Platelet Vol. 11.0 fl (6.2-12.0); NRBC Flagged by Analyzer 0 % (0-5); Platelet Count 247 K/mm3 (150-450); RBC Distribution Width CV 15.3 % (11.6-14.6); RBC Distribution Width SD 52.1 fl (35.1-43.9); Red Blood Count 3.08 M/mm3 (4.2-5.4); White Blood Count 9.6 K/mm3 (4.4-11.0)
[2024-12-20 13:16] LABS: Anion Gap 12 (5-15); BUN 31 mg/dL (4-19); BUN/Creat Ratio 31.1 RATIO (10-20); Calcium,Total 8.8 mg/dL (7.6-11.0); Carbon Dioxide 24.2 mmol/L (21.0-32.0); Chloride 102 mmol/L (98-108); Glucose 104 mg/dL (70-99); Potassium 3.9 mmol/L (3.3-5.1)
== END | disposition home or self-care (01) ==
LOC: VSLAB 12:08
PROVIDERS: PCP Student in an Organized Health Care Education/Training Program; Referring Provider Nurse Practitioner Family; Visit Provider Nurse Practitioner Family
DX: E87.1 Hypo-osmolality and hyponatremia (principal); D64.9 Anemia, unspecified
CPT/HCPCS: 36415; 80048; 85025

== ENCOUNTER 2024-12-23 19:04 | Emergency (ER) | payer MEDICARE, OTHER, SELFPAY ==
[2024-12-23 19:04] VITALS: BP 175/52; PULSE 60; RESP 20; TEMP 36.8; O2SAT 98
--- NOTE | 2024-12-23 19:57 | RAD_ITS ---
PROCEDURE: CHEST 1 VIEW (PORTABLE) 12/23/2024 REASON FOR EXAM: SHORTNESS OF BREATH TECHNIQUE: Frontal view of the chest. COMPARISON: Chest radiographs 10/31/2024 FINDINGS: Hardware: Dual-chamber pacer projects over the left hemithorax. Electrodes go into the heart. EKG lead wires overlie the chest. Heart: Normal size and appearance. Lungs: Predominantly clear and well expanded Bones: No aggressive bone process identified. Moderate bilateral shoulder osteoarthritis Other: RAD/Chest 1 View (Portable) IMPRESSION: No acute process. Other findings as above. Reading [facility]
--- NOTE | 2024-12-23 19:57 | EKG12_ITS ---
Test Reason : SOB Blood Pressure : */* mmHG Vent. Rate : 60 BPM Atrial Rate : 60 BPM P-R Int : 198 ms QRS Dur : 96 ms QT Int : 468 ms P-R-T Axes : 85 59 36 degrees QTcB Int : 468 ms Atrial-paced rhythm Nonspecific ST and T wave abnormality Abnormal ECG Confirmed by MALDONADO SZYMANSKI, SYDNI ([id number]), editor newspaper [employer]ER ([id number]) on 12/25/2024 1:04:38 PM Referred By: Confirmed By: SYDNI OKEEFE MD
--- NOTE | 2024-12-23 20:04 | EDS_ITS ---
HPI History of Present Illness Chief Complaint: Shortness of Breath Narrative Narrative: 84-year-old female past medical history of CHF, on Lasix, presents with increasing shortness of breath, weight gain of 9 pounds over 2 days, and decreased urination. She relates history that she was [facility] the [facility], and recently released. Given her weight gain and shortness of breath, she thought she was having CHF exacerbation so she took 20 of Lasix yesterday, then 40 mg today. She has had decreased urination today. She also has shortness of breath on exertion over the last few days as well. She denies any fevers or chills, no cough, no history of COPD. No noted increased leg swelling. She states that she had been taken off Lasix previously because her sodium was too low. She supposed to see her station baggage agent Dr. Asim Lai on Wednesday of this week, approximately 4 days from now. She presents because of the dyspnea on exertion, and decreased urination. [facility] Medical History Morbid obesity with BMI of 40.0-44.9, adult Hypothyroidism Tricuspid regurgitation Left atrial enlargement Moderate left ventricular hypertrophy Frequent falls CHF (congestive heart failure) Encounter for monitoring diuretic therapy long term care pharmacist current use of amiodarone Right carotid bruit Pulmonary hypertension GI bleed (2018) Essential (primary) hypertension Osteoarthritis Anxiety Daytime somnolence Dysmetabolic syndrome X Allergic rhinitis Malignant melanoma of skin of trunk, except scrotum Hyperlipidemia FH: sudden cardiac (SCD) Depression Paroxysmal atrial fibrillation Sick sinus syndrome Carotid artery disease Home Medications ?Medication ?Instructions ?Recorded ?Last Taken ?Type aspirin 81 mg tablet,delayed 81 mg PO QDAY heart healt h #90 tabs 12/27/18 12/03/24 Rx release (Adult Low Dose Aspirin) coenzyme Q10 100 mg capsule (Co 100 mg PO DAILY supple ment 01/23/20 Unknown History Q-10) rosuvastatin 10 mg tablet 10 mg PO DAILY cholesterol 0 01/23/20 Unknown History sucralfate 100 mg/mL oral 10 ml PO TID PRN digestion 0 11/25/21 Unknown History suspension cyclosporine 0.05 % eye drops in a 1 drp EACH EYE Q12H eye health 09/27/23 12/03/24 History dropperette (Restasis) albuterol sulfate 90 mcg/actuation 2 puff inhalation Q 6H PRN 10/02/23 Unknown Rx aerosol inhaler (ProAir HFA) shortness of breath or wh eezing #6.7 grams levothyroxine 50 mcg capsule 50 mcg PO QDAY Thyroid 12/03/24 History fluticasone propionate 110 1 inh inhalation Q12H SOB/W heezing 04/30/24 12/03/24 History mcg/actuation HFA aerosol inhaler vitamin B complex (Balanced B-50 1 tab PO DAILY supple ment 04/30/24 Unknown History tablet) diltiazem HCl 240 mg 240 mg PO QHS heart #90 caps 05/15/24 12/02/24 Rx capsule,extended release 24 hr amiodarone 200 mg tablet 200 mg PO DAILY heart #90 ta bs 07/20/24 Unknown Rx losartan 100 mg tablet 100 mg PO DAILY blood pressu re #90 09/11/24 12/03/24 Rx tabs azelastine 0.05 % eye drops 1 drp ophthalmic (eye) BID PRN eye 11/02/24 Unknown History drops omeprazole 20 mg capsule,delayed 20 mg PO QDAY GERD Unknown History release acetaminophen 500 mg tablet 1,000 mg (2 x 500 mg) PO Q 6H PRN 12/13/24 Unknown Rx PRN Pain 1-10 Or Fever #90 tabs gabapentin 100 mg capsule 100 mg PO QHS #30 caps 12/13 Unknown Rx hydralazine 25 mg tablet 25 mg PO TID #90 tabs Unknown Rx hydralazine 50 mg tablet 75 mg (1.5 x 50 mg) PO TID # 90 tabs 12/13/24 Unknown Rx lidocaine 5 % topical patch 1 patch topical DAILY #30 ea 12/13/24 Unknown Rx meloxicam 15 mg tablet 15 mg PO DAILY Joint pain #1 TAB 12/13/24 Unknown Rx sertraline 25 mg tablet See Rx Instructions .Route 0 12/13/24 Unknown Rx .COMPLEX #42 tabs sodium chloride 1,000 mg soluble 1,000 mg PO BID #60 t abs 12/13/24 Unknown Rx tablet Allergy/AdvReac Type Severity Reaction Status Date / Time ciprofloxacin (From Cipro) Allergy Rash Verified 12/23/24 19:06 Penicillins (PCN) Allergy Hives Verified 12/23/24 19:06 Sulfa (Sulfonamide Allergy Hives Verified 12/23/24 19:06 Antibiotics) Beta-Blockers AdvReac Other Verified 12/23/24 19:06 (Beta-Adrenergic Bloc hydrocodone (From Vicodin) AdvReac Other Verified 12/23/24 19:06 lisinopril AdvReac cough Verified 12/23/24 19:06 meperidine (From Demerol) AdvReac Vomiting Verified 12/23/24 19:06 morphine AdvReac Other Verified 12/23/24 19:06 pravastatin AdvReac Other Verified 12/23/24 19:06 Family History Grandfather Myocardial infarction Sudden cardiac Father Myocardial infarction CAD (coronary artery disease) CHF (congestive heart failure) Mother Myocardial infarction CAD (coronary artery disease) A-fib Brother A-fib CHF (congestive heart failure) Brother Cancer Son Diabetes Son Hypertension Surgical History History of permanent cardiac pacemaker placement (06/09/21) History of esophagogastroduodenoscopy (EGD) (09/07/18) History of left heart catheterization (LHC) (05/2011) 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) History of total right knee replacement (TKR) (~08/2011) History of right hip replacement (~2003) History of cholecystectomy History of total left knee replacement (TKR) Social History household members: none housing: house Smoking Status: Never smoker alcohol intake: never substance use type: does not use caffeine: Yes what type of physical activity do you participate in: none seatbelt use: always ROS ROS ED ROS Narrative Review of systems positive for dyspnea on exertion. No fevers or chills, no cough. Positive weight gain of 9 pounds over 2 days. Decreased urination. Denies other exacerbating or alleviating factors. EXAM Physical Exam Narrative Exam Narrative: Afebrile. Vital signs noted. Nontoxic-appearing. Cardiovascular examination reveals a regular rate and rhythm with borderline bradycardia. Lungs are clear to auscultation bilaterally. Mild tachypnea. Abdomen soft nontender with normoactive bowel sounds. Bilateral lower extremities lightly wrapped in gauze/stockinettes. Neurological examination nonfocal, nonlateralizing. Const Vital Signs: 12/23/24 19:04 12/23/24 20:28 12/23/24 21:04 Temperature 98.2 F Temperature Source Oral Pulse Rate 60 60 Respiratory Rate 20 H 17 Respiratory Effort Respiratory Depth Respiratory Pattern Blood Pressure 175/52 H 159/56 H Blood Pressure Mean 93 90 Pulse Ox 98 94 Oxygen Delivery Method Room Air Room Air Room Air 12/23/24 21:28 Temperature Temperature Source Pulse Rate Respiratory Rate Respiratory Effort Normal Non-Labored Respiratory Depth Normal Respiratory Pattern Normal Blood Pressure Blood Pressure Mean Pulse Ox Oxygen Delivery Method Room Air MDM MDM MDM Narrative Medical decision making narrative: Differential diagnosis includes but not limited to dehydration versus decreased urine output secondary to intravascular volume depletion versus CHF exacerbation versus pneumonia versus pneumothorax. Patient is currently afebrile here. Comprehensive workup was pursued. I am hesitant to give her a large amount of IV fluid with her history of CHF and pacemaker. She may have dehydration or other electrolyte abnormalities such as hyponatremia again. EKG was obtained and interpreted by myself independently as atrial paced rhythm at [address] changes. No STEMI. I reviewed her laboratory work and she has slight leukocytosis of 12.8 which I think is nonspecific, hemoglobin stable at 9.7 when compared to prior labs, hematocrit 29.9, platelet count 249. Electrolyte panel shows normal sodium of 141 with potassium 3.6, BUN of 25 and creatinine 1.17, no acute kidney injury. Glucose 119 with normal anion gap of 15. While BNP is slightly elevated at 1330, on my individual interpretation of her chest x-ray, she has no pleural effusion or fluid overload, no consolidation. I reviewed the radiology report which also shows no acute process. I think her decreased urine output may be secondary to her limited fluid intake. I did put in an order to have her ambulate on a pulse ox, however she states she is fine and she is motivated for discharge. She states when she ambulates her pulse ox remains at 94 to 95% on room air but she subjectively has dyspnea on exertion. At this point in time, I do not feel that she is meeting any observation or admission criteria. I feel she can be discharged to follow-up with her station baggage agent as scheduled, and her primary care provider as needed. Return instructions to the emergency department were reviewed. Disposition is discharged home in stable condition. History & Record Review Discussion w/independent historian: Patient Lab Data Attestation: I reviewed the patient's lab results. Labs: Laboratory Results - last 24 hr 12/23/24 20:20 WBC 12.8 H RBC 3.22 L Hgb 9.7 L Hct 29.9 L MCV 92.9 MCH 30.1 MCHC 32.4 RDW Std Deviation 51.6 H RDW Coeff of Chandu 15.2 H Plt Count 249 MPV 10.5 Immature Gran % (Auto) 0.500 Neut % (Auto) 75.5 H Lymph % (Auto) 10.8 L [place] % (Auto) 10.7 H Eos % (Auto) 2.0 Baso % (Auto) 0.5 Absolute Neuts (auto) 9.6 H Absolute Lymphs (auto) 1.38 Nucleated RBC % 0 Sodium 141 Potassium 3.6 Chloride 104 Carbon Dioxide 22.6 Anion Gap 15 BUN 25 H Creatinine 1.17 Est GFR (MDRD) Non-Af 46 L BUN/Creatinine Ratio 21.0 H Glucose 119 H Calcium 9.0 NT pro BNP II 1330 Radiography Chest X-Ray - ED: 1 View, Read by ED Physician, Read by Radiologist, No Acute Disease and No Infiltrates Diagnostic Testing: Clinical Impression(s) from Imaging Studies Chest X-Ray 12/23/24 19:57 IMPRESSION: No acute process. Other findings as above. [facility] Triage Chief Complaint: Shortness of Breath ED Provider: Arley Manuel Dx/Rx/DC Orders Clinical Impression: Dyspnea on exertion, History of chronic CHF, Decreased urine output Instructions: ED Heart Failure, Congestive (CHF), ED Dyspnea Prescriptions: No Action aspirin [Adult Low Dose Aspirin] 81 mg tablet,delayed release (DR/EC) 81 mg PO QDAY Qty: 90 3RF rosuvastatin 10 mg tablet 10 mg PO DAILY coenzyme Q10 [Co Q-10] 100 mg capsule 100 mg PO DAILY sucralfate 100 mg/mL suspension 10 ml PO TID PRN (Reason: digestion) Patient Comments: TAKE 10 ML BY MOUTH 4 TIMES DAILY levothyroxine 50 mcg capsule 50 mcg PO QDAY omeprazole 20 mg capsule,delayed release(DR/EC) 20 mg PO QDAY cyclosporine [Restasis] 0.05 % dropperette 1 drp EACH EYE Q12H albuterol sulfate [ProAir HFA] 90 mcg/actuation HFA aerosol inhaler 2 puff inhalation Q6H PRN (Reason: shortness of breath or wheezing) Qty: 6.7 0RF vitamin B complex [Balanced B-50] Tablet 1 tab PO DAILY fluticasone propionate 110 mcg/actuation HFA aerosol inhaler 1 inh inhalation Q12H azelastine 0.05 % drops 1 drp ophthalmic (eye) BID PRN (Reason: eye drops) acetaminophen 500 mg Tablet 1,000 mg PO Q6H PRN PRN (Reason: Pain 1-10 Or Fever) Qty: 90 0RF hydralazine 50 mg Tablet 75 mg PO TID Qty: 90 0RF Rx Instructions: you will take 1 50 mg tablet and 1 25 mg tablet 3 times a day to equal 75 mg 3 times a day gabapentin 100 mg Capsule 100 mg PO QHS Qty: 30 0RF lidocaine 5 % Adhesive Patch,Medicated 1 patch topical DAILY Qty: 30 0RF Protocol: *Topical Application Instructions APPLICATION INSTRUCTIONS: left outer hip Rx Instructions: remove the patch 12 H after it is applied. sodium chloride 1,000 mg Tablet,Soluble 1,000 mg PO BID Qty: 60 0RF sertraline 25 mg tablet See Rx Instructions .ROUTE .COMPLEX Qty: 42 0RF Rx Instructions: take 2 tabs at bedtime for 2 weeks and then decrease to 1 tab at bedtime for 2 weeks then discontinue hydralazine 25 mg tablet 25 mg PO TID Qty: 90 0RF Rx Instructions: take 1 50 mg tab and 1 25 mg tab 3 times a day for a total of 75 mg 3 times a day. meloxicam 15 mg tablet 15 mg PO DAILY Qty: 1 0RF Rx Instructions: Take this with food. diltiazem HCl 240 mg capsule,extended release 24hr 240 mg PO QHS Qty: 90 3RF amiodarone 200 mg tablet 200 mg PO DAILY Qty: 90 3RF losartan 100 mg tablet 100 mg PO DAILY Qty: 90 3RF Primary Care Provider: Karen Johnson [facility] Referrals: Gallo Hickey MD [Med Staff - Active Staff] - Keep Brandon appointment Michael Puga DO [Non-Staff] - Activity Restrictions/Additional Instructions: Continue your previous medications and routines. Return with increased difficulty breathing, new or worsening symptoms. Print Language: Salvadorean Disposition Disposition: Home, Self Care
[2024-12-23 20:40] LABS: Hematocrit 29.9 % (37-47); Hemoglobin 9.7 g/dL (12.0-15.0); Immature Granulocytes Count 0.070 X10^3/uL (0.0-0.0); Mean Corp Hgb Conc 32.4 g/dL (32-36); Mean Corpuscular Volume 92.9 fL (81-99); Mean Platelet Vol. 10.5 fl (6.2-12.0); NRBC Flagged by Analyzer 0 % (0-5); Platelet Count 249 K/mm3 (150-450); RBC Distribution Width CV 15.2 % (11.6-14.6); RBC Distribution Width SD 51.6 fl (35.1-43.9); Red Blood Count 3.22 M/mm3 (4.2-5.4); White Blood Count 12.8 K/mm3 (4.4-11.0)
--- OUTSIDE RECORDS SUMMARY | 2024-12-23 20:49 | XMS RPT_ITS | CCD ---
Author Organization [facility] Care Team Providers Care Forge Operator Helper Name Role Phone GLYNN Harris, Lisa Ennis [...] Michael Puga DO Primary Care Provider [phone] Edelmira SZYMANSKI, Dr. Holder Attending Provider Edelmira [...] Taina SZYMANSKI, Dr. Herman Attending Provider Mick GATHERING MACHINE SETTER.BRIDGE BUILDER, Isela Radu Unavailable Dr. Michael Puga DO Primary Care Provider [phone] Anabel Alexander Attending Provider Anabel Alexander Referring [...] MICHAEL L Primary Care Unavailable JANAS, GEETA MARIADIPHU Referring Unavailab le JANAS, GEETA TEJADA Referring Unavailab le PUGA, MICHAEL L Primary Care Unavailable PUGA, MICHAEL L Primary Care Unavailable ARLENE SCHWARZ Referring Unavailable PUGA, MICHAEL L Primary Care Unavailable PJ BLEDSOE Attending Unavailable ARLENE SCHWARZ Referring Unavailable JANAS, GEETA TEJADA Referring Unavailab le [...] Provider [phone] Dr. Michael Puga DO Primary Care Provider [phone] Dr. Gallo Hickey MD Attending Provider [phone] Dr. Gallo Hickey MD Referring Provider [phone] Dr. Virgil Tyler DO Emergency Provider de Sacha DO, Dr. Tiuts Admit Provider Unavail able Davis DO, Dr. Titus Attending Provider Unav ailable de Sacha DO, Dr. Titus Other Provider Unavail able Alan SZYMANSKI, Dr. Galeano Attending Provider Jules SZYMANSKI, Dr. Jonny Salazar Other Provider Jules SZYMANSKI, Dr. Jonny Salazar Attending Provider Alan SZYMANSKI, Dr. Galeano Other Provider Raj SZYMANSKI, Dr. Tavares Hodges Admit Provider Raj SZYMANSKI, Dr. Tavares Hodges Other Provider Semenafrica DO, Dr. Radha Mayen Attending Provide r Sementi DO, Dr. Radha Mayen Other Provider Puga, Michael Primary Care Unavailable Anabel Alexander Referring Unavail able Anabel Alexander Attending Unavail able Waleska Phillips Attending Unavailable Tacho Davis Admitting Unavailable Tacho Davis Consulting Unavailable Puga, Michael Primary Care Unavailable Jonny Vicente Consulting Unavailable Puga, Michael Primary Care Unavailable SemenRadha leger Attending Unavaila ble Raj, Tavares Chi Consulting Unavailable Raj, Tavares Chi Admitting Unavailable SementiRadha Consulting Unavaila ble Puga, Michael Primary Care Unavailable Raj, Tavares Chi Admitting Unavailable SementiRadha Attending Unavaila ble Raj, Tavares Chi Consulting Unavailable Puga, Michael Primary Care Unavailable Edelmira, [place] Attending Unavailable Anabel Alexander Referring Unavail able Anabel Alexander Attending Unavail able Puga, Michael Primary Care Unavailable Sibilia, Owen V Consulting Unavailable Puga, Michael Primary Care Unavailable Puga, Michael Attending Unavailable Edelmira, [place] Referring Unavailable Puga, Michael Primary Care Unavailable Susan Duran Admitting Unavailable Jonny Vicente Attending Unavailable Susan Duran Consulting Unavailable Anabel Alexander Referring Unavail able Anbael Alexander Attending Unavail able Puga, Michael Primary Care Unavailable Puga, Michael Primary Care Unavailable Anabel Alexander Referring Unavail able Anabel Alexander Attending Unavail able Puga, Michael Primary Care Unavailable Anabel Alexander Referring Unavail able Anabel Alexander Attending Unavail able Karen Logan Referring Unavailabl e Puga, Michael Primary Care [facility] Puga, Michael Primary Care Unavailable Puga, Michael Attending Unavailable Puga, Michael Referring Unavailable Puga, Michael Primary Care Unavailable Key Portillo Attending Unavailabl e Waleska Phillips Attending Unavailable Tacho Davis Consulting Unavailable Puga, Michael Primary Care Unavailable Tacho Davis Admitting Unavailable Jonny Vicente Consulting Unavailable Waleska Phillips Consulting Unavailable Anabel Alexander Attending Unavail able Puga, Michael Referring Unavailable Puga, Michael Primary Care Unavailable Puga, Michael Primary Care Unavailable Edelmira, [place] Referring Unavailable Edelmira, [place] Attending Unavailable Anabel Alexander Referring Unavail able Anabel Alexander Attending Unavail able Puga, Michael Primary Care Unavailable Anabel Alexander Referring Unavail able Puga, Michael Primary Care Unavailable Russel Baum Attending Unavailable Puga, Michael Primary Care Unavailable Anabel Alexander Referring Unavail able Virgil Her Attending Unavailable Puga, Michael Primary Care Unavailable Edelmira, [place] Attending Unavailable Tacho Davis Attending Unavailable Jonny Vicente Attending Unavailable Puga, Michael Primary Care Unavailable Kristal Watkins NP Attending Unavailable Puga, Michael Primary Care Unavailable Anabel Alexander Attending Unavail able Puga, Michael Referring Unavailable Puga, Michael Primary Care Unavailable Anabel Alexander Attending Unavail able Puga, Michael Referring Unavailable Puga, Michael Primary Care Unavailable Edelmira, Gallo Referring Unavailable Edelmira, [place] Attending Unavailable Puga, Michael Primary Care Unavailable Edelmira, [place] Referring Unavailable Edelmira, Gallo Attending Unavailable Puga, Michael Primary Care Unavailable Edelmira, [place] Referring Unavailable Edelmira, [place] Attending Unavailable Puga, Michael Primary Care Unavailable Edelmira, Gallo Referring Unavailable Edelmira, Gallo Attending Unavailable Puga, Michael Primary Care Unavailable Edelmira, Gallo Attending Unavailable Puga, Michael Primary Care Unavailable Edelmira, Gallo Attending Unavailable Puga, Michael Primary Care Unavailable Edelmira, Gallo Attending Unavailable Edelmira, Gallo Referring Unavailable Puga, Michael Primary Care Unavailable Edelmira, Gallo Referring Unavailable Edelmira, [place] Attending Unavailable Puga, Michael Primary Care Unavailable White, Susan L Admitting Unavailable White, Susan L Consulting Unavailable White, Susan L Attending Unavailable KotslucianasTimmyJonny F Attending Unavailable KotsonisJonny F Consulting Unavailable Puga, Michael Primary Care Unavailable Edelmira, Gallo Referring Unavailable Edelmira, [place] Attending Unavailable Puga, Michael Attending Unavailable Puga, Michael Primary Care Unavailable Puga, Michael Referring Unavailable Puga, Michael Attending Unavailable Puga, Michael Primary Care Unavailable Puga, Michael Referring Unavailable Puga, Michael Primary Care Unavailable Anabel Alexander Attending Unavail able Anabel Alexander Referring Unavail able SHARON JARRETT Attending Unavailable PUGA, MICHAEL L Primary Care Unavailable PUGA, MICHAEL L Referring Unavailable PUGA, MICHAEL L Primary Care Unavailable PUGA, MICHAEL L Attending Unavailable SHARON JARRETT Attending Unavailable PUGA, MICHAEL [...] Care Unavailable KEY PORTILLO Attending Unavailabl e MACARENA JARRETTBERLEY Attending Unavailable PUGA, MICHAEL L Primary Care Unavailable RAYMUNDO DE LEÓN Referring Unavailable PUGA, MICHAEL L Primary Care Unavailable Allergies Allergy Classification Reported Allergen(s) Allergy Type Date of Onset Reaction(s) Facility Acetaminophen / HYDROcodone (1 source) Acetaminophen / HYDROcodone Drug Allergy 5 Intolerance [facility] HMG-CoA Reductase Inhibitors (statins) (1 source) Pravastatin Drug Allergy 6 Other: See Comments [facility] Work Phone: Macrolides (antibiotic) (1 source) Azithromycin Drug Allergy 8 Intolerance [facility] Opioid Agonists (1 source) Meperidine Drug Allergy 1 Vomiting [facility] Penicillins (antibiotic) (1 source) Penicillin G Drug Allergy 1 [facility] Quinolones (antibiotic) (1 source) Ciprofloxacin Drug Allergy 9 Rash [facility] Sulfonamides (antibiotic) (1 source) Sulfonamides (Antibiotic) Drug Allergy 1 [facility] (6 sources) acetaminophen / HYDROcodone drug allergy 1 Nausea & vomiting [facility] Work Phone: (6 sources) Adrenergic Beta-Antagonists drug allergy 5 Fatigue [facility] Work Phone: (19 sources) lisinopril; Translations: [lisinopril] drug allergy 6 cough [facility] Work Phone: [phone] (7 sources) meperidine drug allergy 1 Nausea & Vomiting, Unknown [facility] Work Phone: (7 sources) penicillin drug allergy 1 Hives, Unknown [facility] Work Phone: [phone] (6 sources) Sulfonamides (Antibiotic) drug allergy 1 Hives [facility] Work Phone: [phone] (1 source) guaiFENesin / HYDROcodone Drug Allergy Unknown [facility] (1 source) Sulfonamides (Antibiotic) Unknown [facility] (20 sources) Acetaminophen / HYDROcodone; Translations: [HYDROCODONE-ACET AMINOPHEN] Drug Allergy 5 Intolerance [facility] Work Phone: (20 sources) Azithromycin; Translations: [AZITHROMYCIN] Drug Allergy 8 Intolerance [facility] Work Phone: [phone] (20 sources) Meperidine; Translations: [MEPERIDINE (PF)] Drug Allergy 1 Vomiting [facility] (20 sources) Morphinan opioid; Translations: [OPIOIDS - MORPHINE ANALOGUES] Propensity to adverse reactions to drug 1 Intolerance [facility] (20 sources) Penicillin G; Translations: [PENICILLIN G] Drug Allergy 1 [facility] (20 sources) Pethidine analog; Translations: [OPIOIDS-MEPERIDI NE AND RELATED] Propensity to adverse reactions 1 [facility] (20 sources) Pravastatin; Translations: [PRAVASTATIN SODIUM] Drug Allergy 6 Other: See Comments [facility] Work Phone: (20 sources) Sulfonamides (Antibiotic); Translations: [SULFA (SULFONAMIDE ANTIBIOTICS)] Propensity to adverse reactions 1 [facility] (20 sources) Ciprofloxacin; Translations: [CIPROFLOXACIN] Drug Allergy 9 Rash [facility] (12 sources) HYDROcodone Drug Allergy 2 Other [facility] (12 sources) Meperidine Drug Allergy 2 Vomiting [facility] (13 sources) Penicillins; Translations: [Penicillins] Allergy to substance 2 [facility] (12 sources) Pravastatin Drug Allergy 2 [facility] Comment on above: LEG CRAMPS (13 sources) Beta-Blockers (Beta-Adrenergic Bloc; Translations: [Beta-Blockers (Beta-Adrenergic Bloc] Propensity to adverse reactions 2 [facility] Comment on above: FATIGUE (11 sources) Morphine Drug Allergy 4 [facility] Comment on above: sees things (11 sources) Sulfonamides (Antibiotic) Allergy to substance 4 [facility] (1 source) Ciprofloxacin Drug Allergy 5 [facility] Repository (1 source) HYDROcodone Drug Allergy 5 [facility] (1 source) Meperidine Drug Allergy 5 [facility] (1 source) Morphine Drug Allergy 5 [facility] (1 source) Pravastatin Drug Allergy 5 [facility] (1 source) Sulfonamides (Antibiotic) Drug allergy (disorder) 5 [facility] Repository Medications Current Medications Medication Drug Class(es) Dates Sig (Normalized) Sig (Original) acetaminophen 500 mg oral tablet (2 sources) Start: 12-13-2024 take 1-10 tablets by mouth every six hours as needed for pain Acetaminophen 500 mg Tablet Active 1000 mg PO EVERY 6 HOURS NEEDED as needed for Pain 1-10 Or Fever 90 0 December 13, 2024 12:00am amiodarone hydrochloride 200 mg oral tablet (20 sources) Antiarrhythmic Start: 01-23-2020 End: 07-20-2024 take 1 tablet by mouth once daily PACERONE 200 mg tablet Take 200 mg by mouth once daily. 08/26/2020 Active Start: 07-14-2011 End: 07-14-2011 take 1 tablet by mouth once daily AMIODARONE HCL 200 MG TABS One tablet by mouth daily AMIODARONE HCL [id number] Delisa Juárez RN Start: 04-07-2011 AMIODARONE HCL 200 MG TABS 1 tablet twice a day for two weeks then 1 a day AMIODARONE HCL [id number] Gallo Hickey MD Comment on above: Take 200 mg by mouth once daily. aspirin 81 mg delayed release oral tablet (20 sources) Platelet Aggregation Inhibitor, Nonsteroidal Anti-inflammatory Drug Start: 12-27-2018 Aspirin (Adult Low Dose Aspirin) 81 mg tablet,delayed release (DR/EC) Active 81 mg PO daily 90 3 December 27, 2018 12:00am [employer] [facility] Start: 07-16-2016 End: 05-05-2017 take 1 tablet [...] Start: 05-24-2013 ASPIRIN 81 MG TABS ASPIRIN [id number] Anabel Horne PA-C Start: 05-24-2013 ASPIRIN 81 MG TABS ASPIRIN [id number] Anabel Horne PA-C Start: 04-07-2011 take 1 tablet by arpan th once daily ASPIRIN 325 MG TABS One tablet by mouth daily ASPIRIN [id number] Delisa Juárez RN Comment on above: Take 81 mg by mouth once daily. azelastine hydrochloride 0.5 mg/ml ophthalmic solution (20 sources) Histamine-1 Receptor Antagonist Start: take 1 drop(s) into the eye(s) twice daily as needed Azelastine 0.05 % drops Active 1 NMA OPHTHALMIC TWICE A DAY as needed for eye drops November 02, 2024 9:45am Start: 11-02-2024 Azelastine 0.0 5 % drops Active 1 NMA OPHTHALMIC TWICE [...] 12/24/2022 Active Cyclosporine (Restasis) 0.05 % dropperette (11 sources) Start: 09-27-2023 Cyclosporine ( Restasis) 0.05 % dropperette Active 1 NMA EACH EYE Q12H September 27, 2023 12:00am eye health Start: 09-27-2023 Cyclosporine ( Restasis) 0.05 % dropperette Active 1 NMA EACH EYE Q12H September 27, 2023 12:00am 24 hr dilTIAZem hydrochloride 240 mg extended release oral capsule (20 sources) Calcium Channel Nicolle Start: 08-10-2013 take 1 capsule by mouth [...] 12:23pm heart Start: 08-10-2013 DILT-XR 240 MG [id number] DILTIAZEM HCL [id number] Kristel Garcia RN Start: 08-10-2013 take 1 tablet by arpan th once daily DILT-XR 240 MG [id number] One tablet by mouth daily DILTIAZEM HCL [id number] Gallo Hickey MD Start: 07-19-2013 take 1 tablet by arpan th twice daily DILT-XR 120 MG [id number] One tablet by mouth twice daily DILTIAZEM HCL [id number] Anabel Horne PA-C Start: 07-19-2013 take 1 tablet by arpan th twice daily DILT-XR 120 MG [id number] One tablet by mouth twice daily DILTIAZEM HCL [id number] Anabel Horne PA-C Start: 05-05-2011 take 1 tablet by arpan th once daily DILT-XR 120 MG [id number] One tablet by mouth daily DILTIAZEM HCL [id number] Gallo Hickey MD Start: 05-05-2011 take 1 tablet by arpan th once daily DILT-XR 120 MG [id number] One tablet by mouth daily DILTIAZEM HCL [id number] Gallo Hickey MD Comment on above: Take 1 capsule by mo [facility] once daily. doxycycline hyclate 100 mg oral tablet (3 sources) Tetracycline-clas s Drug Start: 12-01-2023 End: 12-15-2023 take 1 tablet by mouth twice daily doxycycline (VIBRA-TABS) 100 mg tablet Indications: Rhonchi , Acute bronchitis, unspecified organism Take 1 tablet by mouth two times a day for 14 days. 28 tablet 0 12/01/2023 12/15/2023 Active Fluticasone Propionate 110 mcg/actuation HFA aerosol inhaler (11 sources) Start: 04-30-2024 Fluticasone Propionate 110 mcg/actuation HFA aerosol inhaler Active 1 NMA INHALATION Q12H April 30, 2024 1:00am SOB/Wheezing Start: 04-30-2024 Fluticasone Pr opionate 110 mcg/actuation HFA aerosol inhaler Active 1 NMA INHALATION Q12H April 30, 2024 1:00am hydrALAZINE hydrochloride 50 mg oral tablet (20 sources) Arteriolar Vasodilator Start: 12-13-2024 take 1 tablet by mouth three times daily Hydralazine 25 mg tablet Active 25 mg PO THREE TIMES A DAY 90 0 December 13, 2024 12:00am take 1 50 mg tab and 1 25 mg tab 3 times a day for a total of 75 mg 3 times a day. Start: 12-13-2024 Hydralazine 50 mg Tablet Active 75 mg PO THREE TIMES A DAY 90 0 December 13, 2024 12:00am you will take 1 50 mg tablet and 1 25 mg tablet 3 times a day to equal 75 mg 3 times a day Start: 12-03-2024 End: 12-13-2024 take 1 tablet by mouth three times daily Hydralazine 50 mg Tablet Discontinued 50 mg PO THREE TIMES A DAY 0 0 December 03, 2024 12:00am December 13, 2024 12:11pm BP Start: 06-01-2024 End: 12-03-2024 take 1 tablet by mouth twice daily Hydralazine 50 mg tablet Discontinued 50 mg PO TWICE A DAY 180 June 01, 2024 3:01pm December 03, 2024 2:10pm Start: 06-01-2024 [...] Active isopropyl alcohol 0.7 ml/ml medicated pad (18 sources) Start: 08-30-2024 alcohol swabs Indications: Hypoglycemia Use with blood glucose test 2 times daily. Insulin Dep? No 200 each 5 08/30/2024 Active levothyroxine sodium 0.05 mg oral tablet (20 sources) l-Thyroxi ne Start: 01-25-2024 take 1 capsule by mouth once daily Levothyroxine 50 mcg capsule Active 50 ug PO daily January 25, 2024 12:00am Thyroid Start: 12-01-2023 End: 06-21-2024 take 1 tablet [...] Take 1 tablet by arpan once daily. In the morning, Take on empty stomach at least 30 min before eating. For thyroid. lidocaine 0.05 mg/mg medicated patch (2 sources) Antiarrhythmic, Amide Local Anesthetic Start: apply 1 dose topically once daily Lidocaine 5 % Adhesive Patch,Medicated Active 1 NMA TOPICAL DAILY 30 0 December 13, 2024 12:00am remove the patch 12 H after it is applied. Please contact the information source for Protocol details. meloxicam 15 mg oral tablet (20 sources) Nonsteroidal Anti-inflammatory Drug Start: End: take 1 tablet by mouth once daily at mealtime meloxicam (MOBIC) 15 mg tablet Indications: Arthritis, multiple joint involvement Take 1 tablet by mouth once daily. Take with food. 90 tablet 1 09/11/2024 Active Start: 08-31-2018 End: 12-04-2018 Meloxicam 15 mg tablet Disco ntinued 15 mg PO NEEDED as needed for Pain August 31, 2018 12:00am December 04, 2018 10:32am nitrofurantoin, macrocrystals 25 mg / nitrofurantoin, monohydrate 75 mg oral capsule (1 source) Nitrofuran Antibacterial Start: 10-20-2021 End: 10-25-2021 take 1 capsule by mouth twice daily nitrofurantoin monohydrate and macrocrystal (MACROBID) 100 mg capsule Take 1 capsule by mouth twice daily for 5 days. 10 capsule 0 10/20/2021 10/25/2021 Active Comment on above: Take 1 capsule by mo [facility] twice daily for 5 days. omeprazole 20 mg delayed release oral capsule (20 sources) Proton Pump Inhibitor Start: 11-02-2024 take 1 capsule by mouth once daily Omeprazole 20 mg capsule,delayed release(DR/EC) Active 20 mg PO daily November 02, 2024 12:00am GERD Start: 04-10-2024 End: 07-09-2024 take 1 tablet [...] 10:47pm Start: 10-29-2020 take 1 capsule by [facility] once daily omeprazole (PRILOSEC) 20 mg [...] CPDR One tablet by mouth daily OMEPRAZOLE [id number] Gallo Hickey MD Start: 07-19-2013 End: 05-28-2015 take 1 tablet by mouth once daily PRILOSEC 20 MG CPDR One tablet by mouth daily OMEPRAZOLE [id number] JAMAL KatzC Comment on above: Take 1 capsule by [facility] once daily. perflutren lipid microspheres 1.3 mL in NaCl (PF) 0.9% 10 mL injection (DEFINITY) (14 sources) Start: 3 End: 4 perflutren lipid microspheres 1.3 mL in NaCl (PF) 0.9% 10 mL injection (DEFINITY) rosuvastatin calcium 10 mg oral tablet (20 sources) HMG-CoA Reductase Inhibitor Start: 0 End: 5 take 1 tablet by mouth once daily at bedtime rosuvastatin (CRESTOR) 10 mg tablet Indications: TIA (transient ischemic attack) , Hyperlipidemia, unspecified hyperlipidemia type Take 1 tablet by mouth daily at bedtime. 90 tablet 3 11/27/2024 Active Comment on above: Take 1 tablet by arpan th daily at bedtime. sertraline 25 mg oral tablet (3 sources) Serotonin Reuptake Inhibitor Start: Sertraline 25 mg tablet Active 0 .ROUTE .COMPLEX 42 0 December 13, 2024 12:00am take 2 tabs at bedtime for 2 weeks and then decrease to 1 tab at bedtime for 2 weeks then discontinue take 1 tablet by mouth once nick y sertraline (ZOLOFT) 25 mg tablet Take 25 mg by mouth once daily. Active sodium chloride 1000 mg oral tablet (16 sources) Start: 12-13-2024 take 1 tablet by mouth twice daily Sodium Chloride 1,000 mg Tablet,Soluble Active 1000 mg PO TWICE A DAY 60 0 December 13, 2024 12:00am Start: 06-04-2022 End: 09-04-2023 sodium chloride 0.9 % (flush ) 10 mL (BD POSIFLUSH) sucralfate 100 mg/ml oral suspension (20 sources) Aluminum Complex Start: 04-12-2024 take 10 mL by mouth four times [...] times daily. ubidecarenone 100 mg oral capsule (12 sources) Start: 01-23-2020 Coenzyme Q10 (Co Q-10) 100 mg capsule Active 100 mg PO DAILY January 23, 2020 12:00am supplement ubidecarenone (COQ-10 ORAL) (20 sources) ubidecarenone (C OQ-10 ORAL) Take by mouth. Active ubidecarenone (C OQ-10 ORAL) Take by mouth. 0 Active Comment on above: Take by mouth. Vitamin B Complex (Balanced B-50) tablet (11 sources) Start: 04-30-2024 Vitamin B Comp chai (Balanced B-50) tablet Active 1 {tbl} PO DAILY April 30, 2024 1:00am supplement Start: 04-30-2024 Vitamin B Comp chai (Balanced B-50) tablet Active 1 {tbl} PO DAILY April 30, 2024 1:00am Completed/Discontinued Medications Medication Drug Class(es) Dates Sig (Normalized) Sig (Original) acetaminophen 325 mg / HYDROcodone bitartrate 5 mg oral tablet (18 sources) Opioid Agonist Start: 05-25-2014 End: 05-28-2015 take 2 tablets by mouth every four to six hours as needed HYDROCODONE-ACETAM INOPHEN 5-325 MG TABS Two tablets by mouth every 4 to 6 hours as needed HYDROCODONE-ACETAM INOPHEN [id number] Gallo Hickey MD [id number] 200 actuat albuterol 0.09 mg/actuat metered dose inhaler (20 sources) beta2-Adrenergic Agonist Start: 10-02-2023 Albuterol Sulfate (Proair Hfa) 90 mcg/actuation HFA aerosol inhaler Active 2 NMA INHALATION EVERY 6 HOURS as needed for shortness of breath or wheezing 6.7 0 October 02, 2023 12:00am Start: 01-08-2023 End: 12-20-2024 take 2 puff(s) by inhalation every four hours as needed albuterol HFA (PROVENTIL HFA, VENTOLIN HFA) 90 mcg/actuation inhaler Inhale 2 Puffs as instructed every 4 hours as needed. 2 Each 5 03/01/2024 12/20/2024 Discontinued Start: 12-21-2020 End: 01-19-2021 take 2 puff(s) [...] in structed every 4 hours as needed. amLODIPine 10 mg oral tablet (18 sources) Dihydropyridine Calcium Channel Nicolle Start: 2015 End: 2016 take 1 tablet by mouth once daily NORVASC 10 MG TABS One tablet by mouth daily AMLODIPINE BESYLATE [id number] Gallo Hickey MD apixaban 5 mg oral tablet (12 sources) Factor Xa Inhibitor Start: 2018 End: 2018 take 1 tablet by mouth twice daily Apixaban 5 MG tablet Discontinued 5 mg PO TWICE A DAY 60 0 December 04, 2018 12:00am December 27, 2018 3:49pm cholecalciferol 0.05 mg oral capsule (20 sources) Vitamin D Start: 2021 End: 2024 take 1 capsule by mouth once daily [...] on above: Take 1 capsule by mo [facility] once daily. citalopram 20 mg oral tablet (6 sources) Serotonin Reuptake Inhibitor Start: 09-23-19 11 take 1 tablet by mouth once daily CELEXA 20 MG TABS One tablet by mouth daily CITALOPRAM HYDROBROMIDE [id number] Irma Strong clindamycin 300 mg oral capsule (12 sources) Lincosamide Antibacterial Start: 09-23-19 11 End: 05-18-19 13 CLINDAMYCIN HCL 300 MG CAPS 2 tablets by mouth 30-60 mins prior to procedure CLINDAMYCIN HCL [id number] Irma Strong enalapril maleate 20 mg oral tablet (12 sources) Angiotensin Converting Enzyme Inhibitor Start: 09-23-19 11 End: 05-05-19 12 ENALAPRIL MALEATE 20 MG TABS 1/2 tablet daily ENALAPRIL MALEATE [id number] Gallo Hickey MD escitalopram 20 mg oral [...] One tablet by mouth daily ESCITALOPRAM OXALATE [id number] Anabel Horne PA-C Comment on above: Take 1 tablet by [...] Start: 07-14-2011 take 1 tablet by arpan twice daily FLECAINIDE ACETATE 100 MG TABS One tablet by mouth twice daily FLECAINIDE ACETATE [id number] Gallo Hickey MD 120 actuat fluticasone propionate 0.11 mg/actuat metered dose inhaler (20 sources) Corticosteroid Start: 03-01-2024 End: 06-21-2024 take 1 puff(s) by mouth twice daily fluticasone (FLOVENT) 110 mcg/actuation inhaler Indications: Obstructive lung disease (HCC) Inhale 1 Puff as instructed two times a day. Shake well before use. Rinse mouth after use. 1 Each 1 03/01/2024 06/21/2024 Discontinued fluticasone / salmeterol (20 sources) Corticosteroid, beta2-Adrenergic Agonist Start: 06-21-2024 End: 12-20-2024 take 1 puff(s) by mouth twice daily fluticasone-salmete rol (ADVAIR DISKUS) 250-50 mcg/dose inhaler Indications: Obstructive lung disease (HCC) Inhale 1 Puff as instructed two times a day. RINSE AND GARGLE MOUTH WITH WATER AFTER EACH USE. 3 Each 3 06/21/2024 12/20/2024 Discontinued Start: 06-21-2024 take 1 puff(s) by mo [facility] twice daily fluticasone-salmeterol (ADVAIR DISKUS) 250-50 mcg/dose inhaler Indications: Obstructive lung disease (HCC) Inhale 1 Puff as instructed two times a day. RINSE AND GARGLE MOUTH WITH WATER AFTER EACH USE. 3 Each 3 06/21/2024 Active furosemide 20 mg oral tablet (20 sources) [...] mouth once daily. 90 tablet 1 08/17/2024 12/20/2024 Discontinued Start: 05-02-2024 End: 06-01-2024 take 1 tablet by mouth once daily Furosemide (Lasix) 40 mg tablet Discontinued 40 mg PO DAILY 30 May 02, 2024 1:00am June 01, 2024 2:22pm Start: 09-22-2010 End: 10-27-2011 take 1 tablet by mouth once daily LASIX 40 MG TABS One tablet by mouth daily FUROSEMIDE [id number] Irmasophie Strong gabapentin 100 mg oral capsule (20 sources) Anti-epileptic Agent Start: 12-03-2024 End: 12-13-2024 take 3 capsules by mouth at bedtime Gabapentin 100 mg capsule Discontinued 300 mg PO AT BEDTIME 12 December 03, 2024 1:56pm December 13, 2024 12:11pm neuropathy Start: 11-13-2024 End: 12-14-2024 gabapentin (NEURONTIN) 100 m g capsule take 100 mg in the evening daily x 1 week then increase to 200 mg in the evening daily x 1 week then can increase to 300 mg in the evening daily 60 capsule 2 11/13/2024 Active Start: 05-06-2017 End: 06-10-2017 take 1 capsule by mouth three times daily at mealtime Gabapentin 300 MG capsule Discontinued 300 mg PO 3 TIMES DAILY WITH MEALS May 06, 2017 1:00am June 10, 2017 12:16pm PAIN Start: 05-25-2014 End: 05-28-2015 take 1 tablet by mouth three times daily GABAPENTIN 300 MG CAPS One tablet by mouth three times daily GABAPENTIN [id number] Gallo Hickey MD 12 hr guaiFENesin 600 mg extended release oral tablet (20 sources) Start: 10-06-2023 End: 04-17-2025 take 1 tablet by mouth twice daily [...] tablet (18 sources) Nonsteroidal Anti-inflammatory Drug Start: 09-23-19 End: 04-15-20 take 1 tablet by mouth every four hours as needed IBUPROFEN 800 MG TABS 1 tablet by mouth Q4H as needed IBUPROFEN [id number] Anabel Horne PA-C lisinopril 10 mg oral tablet (6 sources) Angiotensin Converting Enzyme Inhibitor Start: 04-04-20 15 take 1 tablet by mouth once daily LISINOPRIL 10 MG TABS One tablet by mouth daily LISINOPRIL [id number] Anabel Horne PA-C LORazepam 0.5 mg oral tablet (20 sources) Benzodiazepine Start: 05-13-19 17 End: 09-22-19 26 take 1 tablet by mouth twice daily as needed for anxiety LORazepam (ATIVAN) 0.5 mg Indications: Anxiety TAKE 1 TABLET BY MOUTH TWICE DAILY NEEDED FOR ANXIETY ATTACK 30 tablet 1 11/13/2024 12/20/2024 Discontinued Comment on above: Take 1 tablet by arpan th twice daily as needed (anxiety attack). losartan potassium 100 mg oral tablet (20 sources) Angiotensin 2 Receptor Nicolle Start: 05-28-19 16 End: 09-12-19 25 take 1 tablet by mouth once daily Losartan 100 mg tablet Discontinued 100 mg PO DAILY 90 3 July 31, 2024 8:43am September 11, 2024 10:11am blood pressure Start: 04-04-2015 take 1 tablet by arpan th once daily LOSARTAN POTASSIUM 50 MG TABS One tablet by mouth daily LOSARTAN POTASSIUM [id number] Anabel Horne PA-C Start: 04-04-2015 End: 06-26-2015 take 1 tablet by mouth twice daily LOSARTAN POTASSIUM 50 MG TABS One tablet by mouth twice daily LOSARTAN POTASSIUM [id number] Kristel Garcia RN Comment on above: Take 1 tablet by arpan th once daily. metFORMIN hydrochloride 500 mg oral tablet (10 sources) Biguanide Start: 022 End: 023 take 1 tablet by mouth once daily at breakfast metFORMIN (GLUCOPHAGE) 500 mg tablet Indications: IFG (impaired fasting glucose) , Obesity, Class II, BMI 35-39.9 Take 1 tablet by mouth daily with breakfast. 90 tablet 3 02/16/2022 06/22/2022 Discontinued Comment on above: Take 1 tablet by arpan th daily with breakfast. metroNIDAZOLE 500 mg oral tablet (12 sources) Nitroimidazole Antimicrobial Start: 018 End: 02-08-2 018 take 1 tablet by mouth every eight hours Metronidazole 500 MG tablet Discontinued 500 mg PO Q8H 30 May 08, 2017 1:00am June 10, 2017 12:16pm Colitis Noninfective gastroenteritis and colitis, unspecified mirtazapine 15 mg oral tablet (8 sources) Start: End: 023 take 1 tablet by mouth once daily [...] One tablet by mouth daily MULTIPLE VITAMIN [id number] Gallo Hickey MD Start: 05-18-2012 End: 05-24-2013 take 1 tablet by mouth once daily MULTIVITAMINS TABS One tablet by mouth daily MULTIPLE VITAMIN [id number] Anabel Horne PA-C MULTIPLE VITAMIN (2 sources) Start: 05-18-2012 take 1 tablet by mouth once daily MULTIVITAMINS TABS One tablet by mouth daily MULTIPLE VITAMIN [id number] Gallo Hickey MD Start: 05-18-2012 End: 05-24-2013 take 1 tablet by mouth once daily MULTIVITAMINS TABS One tablet by mouth daily MULTIPLE VITAMIN [id number] Anabel Horne PA-C Nebulizer Accessories kit (20 sources) Start: 06-21-2024 End: 12-20-2024 Nebulizer Accessories kit Indications: Obstructive lung disease (HCC) , Pulmonary hypertension (HCC) , WELCH (dyspnea on exertion) 1 Kit as directed. 1 Kit 1 06/21/2024 12/20/2024 Discontinued Start: 06-21-2024 Nebulizer Acce ssories kit Indications: Obstructive lung disease (HCC) , Pulmonary hypertension (HCC) , WELCH (dyspnea on exertion) 1 Kit as directed. 1 Kit 1 06/21/2024 Active nystatin 100 unt/mg topical powder (12 sources) Polyene Antifungal Start: 05-08-2017 End: 06-10-2017 [...] by mouth daily OMEGA-3 FATTY ACIDS CPDR [id number] Irma Strong Start: 09-22-2010 End: 05-18-2012 take 1 tablet by mouth once daily OMEGA 3 CPDR One tablet by mouth daily OMEGA-3 FATTY ACIDS CPDR [id number] Gallo Hickey MD OMEGA-3 FATTY ACIDS CPDR (2 sources) Start: 09-22-2010 take 1 tablet by mouth once daily OMEGA 3 CPDR One tablet by mouth daily OMEGA-3 FATTY ACIDS CPDR [id number] Irma Strong Start: 09-22-2010 End: 05-18-2012 take 1 tablet by mouth once daily OMEGA 3 CPDR One tablet by mouth daily OMEGA-3 FATTY ACIDS CPDR [id number] Gallo Hickey MD PARoxetine hydrochloride 40 mg oral tablet (20 sources) Serotonin Reuptake Inhibitor Start: 08-17-2024 End: 02-13-2025 take 1 tablet by mouth once daily PARoxetine (PAXIL) 40 mg tablet Indications: Anxiety , Dysthymia Take 1 tablet by mouth once daily. 90 tablet 1 08/17/2024 12/20/2024 Discontinued Start: 08-17-2024 End: 08-17-2024 take 1 tablet [...] arpan th once daily. In the evening polyethylene glycol 3350 [id number] mg powder for oral solution (12 sources) Osmotic Laxative Start: 8 End: 8 take 17 g by mouth once daily Polyethylene Glycol 3350 17 GM packet Discontinued 17 g PO DAILY 30 May 08, 2017 1:00am June 10, 2017 12:17pm Constipation Constipation, unspecified predniSONE 10 mg oral tablet (20 sources) Start: End: take 1 tablet by mouth once daily Prednisone 10 mg tablet Discontinued 10 mg PO DAILY November 29, 2024 12:00am December 13, 2024 12:16pm steriod Start: 11-02-2024 End: 11-02-2024 take 1 tablet [...] tablet Discontinued 10 mg PO DAILY 32 October 02, 2023 12:00am April 30, 2024 [...] daily at bedtime. 30 tablet 3 08/30/2024 12/20/2024 Discontinued spironolactone 25 mg oral tablet (20 sources) Aldosterone Antagonist Start: End: take 1 tablet by mouth once daily Spironolactone 25 mg tablet Discontinued 25 mg PO DAILY 30 January 25, 2024 12:00am December 13, 2024 12:18pm fluid retention On Hold: Resume on 12/06/24. topiramate 25 mg oral tablet (13 sources) Start: End: take 1 tablet by [...] mg, One tablet by mouth daily CYANOCOBALAMIN [id number] Delisa Juárez RN take 1 tablet by arpan th once daily cyanocobalamin (VITAMIN B-12) 1,000 mcg tab Take 1,000 mcg by mouth once daily. Active B COMPLEX VITAMINS (20 sources) Start: 09-22-2010 take 1 tablet by mouth once daily VITAMIN B COMPLEX TABS One tablet by mouth daily B COMPLEX VITAMINS [id number] Irma Strong End: 03-13-2024 vitamin B complex [...] pulmonary disease, unspecified] Onset: 3 12-30-2022 Chronic Conditions associated with dizziness or vertigo (5 sources) Loss of equilibrium; Translations: [Dizziness and giddiness] Onset: 5 12-04-2024 Episodic Conduction disorders (20 sources) Cardiac pacemaker in situ; Translations: [Presence of cardiac pacemaker] Onset: 1 12-07-2012 Chronic Comment on above: 01/29/2011; Gen Martinez e 06/09/21 01/29/2011; Gen Martinez e 06/09/21. History of sick sinus syndrome. Congestive heart failure; nonhypertensive (20 sources) Congestive heart failure; Translations: [Heart failure, unspecified] Onset: 5 05-11-2024 Chronic Comment on above: Right side Deficiency and other anemia (4 sources) Normocytic normochromic anemia; Translations: [Anemia, unspecified] 12-04-2024 Episodic Deficiency and other anemia (3 sources) Anemia; Translations: [Anemia, unspecified] 12-20-2024 Episodic Deficiency and other anemia (2 sources) Anemia, unspecified; Translations: [Anemia, unspecified] Onset: 5 Episodic Disorders of lipid metabolism (20 sources) Hyperlipidemia; Translations: [Hyperlipidemia, unspecified] Onset: 1 Resolved: 6 09-22-2010 Chronic E Codes: Fall (12 sources) Fall on same level from slipping, [...] of urination; Translations: [Frequency of micturition] Episodic Heart valve disorders (6 sources) Tricuspid valve regurgitation; Translations: [Rheumatic tricuspid insufficiency] Onset: 5 12-08-2024 Chronic Comment on above: 2+ on echocardiogram done 11/29/2024 Hypertension with complications and secondary hypertension (15 sources) Hypertensive emergency; Translations: [Hypertensive emergency] Onset: [...] 0 07-12-2019 Chronic Open wounds of extremities (11 sources) Tear of skin; Translations: [Laceration without foreign body of unspecified elbow, initial encounter] 01-03-2022 Episodic Other aftercare (2 sources) Post-discharge follow-up; Translations: [Encounter for follow-up examination after completed treatment for conditions other than malignant neoplasm] 10-14-2023 Episodic Other aftercare (11 sources) Long-term current use of diuretic; Translations: [Encounter for therapeutic drug level monitoring] 06-26-2024 Episodic Other aftercare (4 sources) Drug therapy finding; Translations: [Other halfway (current) drug therapy] 06-01-2024 Episodic Other aftercare (18 sources) Long-term current use of amiodarone; Translations: [Other equipment operator intermodal yard (current) drug therapy] 06-01-2024 Episodic Other aftercare (2 sources) Other equipment operator intermodal yard (current) drug therapy; Translations: [Other halfway (current) drug therapy] Onset: 5 Episodic Other and ill-defined heart disease (5 sources) Cardiomegaly; Translations: [Moderate left ventricular hypertrophy] Onset: 5 12-04-2024 Chronic Other and ill-defined heart disease (4 sources) Left atrial enlargement; Translations: [Cardiomegaly] 12-04-2024 Chronic Other circulatory disease (20 sources) Disorder of carotid artery; Translations: [Disorder of arteries and arterioles, unspecified] Onset: 6 05-28-2015 Chronic Other circulatory disease (14 sources) Carotid bruit; Translations: [Other specified symptoms and signs involving the circulatory and respiratory systems] 06-01-2024 Episodic Comment on above: Carotid US in July of 2024 showed less than 50% stenosis Other connective tissue disease (12 sources) Recurrent falls ; Translations: [Repeated falls] 12-27-2018 Episodic Other endocrine disorders (1 source) Hypoglycemia; Translations: [Hypoglycemia, unspecified] 08-30-2024 Chronic Other endocrine disorders (1 source) Hypoglycemia, unspecified; Translations: [Hypoglycemia] Onset: 5 Chronic Other gastrointestinal disorders (1 source) Diarrhea; Translations: [Diarrhea, unspecified] 10-06-2023 Episodic Other gastrointestinal disorders (7 sources) Occult blood in stools; Translations: [Other fecal abnormalities] 12-11-2024 Episodic Other gastrointestinal disorders (2 sources) Other fecal abnormalities; Translations: [Other fecal abnormalities] Onset: 5 Episodic Other hereditary and degenerative nervous system conditions (2 sources) Restless legs; Translations: [Restless legs syndrome] 05-11-2024 Chronic Other hereditary and degenerative nervous system conditions (1 source) Restless legs syndrome; Translations: [Restless leg] Onset: 5 Chronic Other inflammatory condition of skin (2 sources) Dermatitis herpetiformis; 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 Other injuries and conditions due to external causes (12 sources) Closed injury of head; Translations: [Unspecified injury of head, initial encounter] 12-25-2018 Episodic Other injuries and conditions due to external causes (11 sources) Injury of head; Translations: [Unspecified injury of head, initial encounter] 01-03-2022 Episodic Other lower respiratory disease (20 sources) Dyspnea; Translations: [Shortness of breath] Onset: 1 09-22-2010 Episodic Comment on above: SOB Other lower respiratory disease (13 sources) Hypoxia; Translations: [Hypoxemia] 04-30-2024 Episodic Other lower respiratory disease (1 source) Obstruction of lower respiratory tract 08-18-2024 Episodic Other nervous system disorders (20 sources) Difficulty walking; Translations: [Difficulty in walking, not elsewhere classified] Onset: 5 11-15-2023 Chronic Other nervous system disorders (1 source) Difficulty in walking, not elsewhere classified; Translations: [Difficulty walking] Onset: 5 Chronic Other nervous system disorders (2 sources) Unable to walk; Translations: [Difficulty in walking, not elsewhere classified] 11-29-2024 Chronic Other nervous system disorders (2 sources) Polyneuropathy, unspecified; Translations: [Polyneuropathy, unspecified] Onset: 5 Chronic Other nervous system disorders (20 sources) Impairment of balance; Translations: [Other abnormalities of gait and mobility] Onset: 5 11-15-2023 Episodic Other nervous system disorders (10 sources) Tremor; Translations: [Tremor, unspecified] 11-29-2024 Episodic [...] Chronic Other nutritional; endocrine; and metabolic disorders (10 sources) Body mass index 40+ - severely [...] conditions (not mental disorders or infectious disease) (18 sources) Electrocardiogram abnormal; Translations: [Abnormal electrocardiogram [ECG] [EKG]] Onset: 1 09-22-2010 Episodic Other upper respiratory disease (20 sources) Allergic rhinitis; Translations: [Allergic rhinitis, unspecified] 01-08-2005 Chronic Pneumonia (except that caused by tuberculosis or sexually transmitted disease) (12 sources) Community acquired pneumonia; Translations: [Pneumonia, unspecified organism] 10-14-2023 Episodic Pulmonary heart disease (20 sources) Pulmonary hypertension; Translations: [Pulmonary hypertension, unspecified] Onset: 4 03-13-2024 Chronic Comment on above: PA systolic on trans thoracic echocardiogram done 11/29/2024 was estimated at 65 which is consistent with moderate pulmonary hypertension. Residual codes; unclassified (20 sources) Obstructive sleep apnea syndrome; Translations: [Obstructive sleep apnea (adult) (pediatric)] Onset: 6 03-09-2016 Chronic Residual codes; unclassified (1 source) Bilateral lower limb edema; Translations: [Localized edema] Episodic Residual codes; unclassified (2 sources) Disturbance in sleep behavior; Translations: [Sleep disorder, unspecified] 10-14-2023 Episodic Respiratory failure; insufficiency; arrest (adult) (20 sources) Dependence on supplemental oxygen; Translations: [Dependence on supplemental oxygen] Onset: 5 10-14-2023 Chronic Sprains and strains (11 sources) Strain of neck muscle; Translations: [Strain of muscle, fascia and tendon at neck level, initial encounter] 01-03-2022 Episodic Superficial injury; contusion (20 sources) Hematoma of scalp; Translations: [Contusion of scalp, initial encounter] 12-25-2018 Episodic Thyroid disorders (20 sources) Subclinical hypothyroidism; Translations: [Other specified hypothyroidism] Onset: 3 04-08-2023 Chronic Comment on above: On levothyroxine 50 mcg daily. Transient cerebral ischemia (20 sources) Transient cerebral ischemia; Translations: [Transient cerebral ischemic attack, unspecified] Onset: 9 12-09-2018 Chronic Unclassified (1 source) Physical Therapy Onset: 4 Viral infection (2 sources) Disease caused by 2019-nCoV 12-21-2020 Comment on above: COVID EXP Past or Other Problems Problem Classification Problem Date Documented Date Episodic/Chronic Abdominal pain (5 sources) Epigastric pain; Translations: [Epigastric pain] Onset: 03-13-2024 03-01-2024 Episodic Acute bronchitis (20 sources) Acute [...] other specified aftercare] Onset: 06-16-2024 Episodic Other aftercare (1 source) Encounter for follow-up examination after completed treatment for conditions other than malignant neoplasm; Translations: [Hospital discharge follow-up] Onset: 08-30-2024 Episodic Other and unspecified benign neoplasm (20 [...] Onset: 12-01-2023 12-01-2023 Episodic Other circulatory disease (1 source) Other specified symptoms and signs involving the circulatory and respiratory systems; Translations: [Other specified symptoms and signs involving the circulatory and respiratory systems] Onset: 07-14-2024 Episodic Other diseases of kidney and ureters (20 sources) Abnormal renal function; Translations: [Disorder of kidney and ureter, unspecified] Onset: 06-27-2024 05-12-2024 Episodic Other diseases of kidney and ureters (2 sources) Disorder of kidney and ureter, unspecified; Translations: [Disorder of kidney and ureter, unspecified] Onset: 05-31-2024 Episodic Other lower respiratory disease (20 sources) Dyspnea on exertion; Translations: [Shortness of breath] Onset: 06-23-2022 Episodic Other lower respiratory disease (3 sources) Other forms of dyspnea; Translations: [Other forms of dyspnea] Onset: 12-22-2022 Episodic Other lower respiratory disease (2 sources) Hypoxemia; Translations: [Hypoxemia] Onset: 05-08-2024 Episodic Other nervous system disorders (20 sources) Abnormal gait; Translations: [Unspecified abnormalities of gait and mobility] Onset: 08-30-2024 03-01-2024 Episodic Other nervous system disorders (2 [...] gland; Translations: [Disorder of thyroid, unspecified] Onset: 06-21-2024 04-05-2023 Episodic Results Test Name Value Interpretation Reference Range Facility Basic Metabolic Profile (BMP )on 12-20-2024 BUN/CRE 31.1 RATIO High 02-19 [facility] Comment on above: Performed By: #### L 100.0100, L500.2500 ####[facility] [address] [place], [address] Calcium [Mass/Vol] 8.8 mg/dL Normal 7.6-11.0 [facility] Comment on above: Performed By: #### L 100.0100, L500.2500 ####[facility] [address] [place], [address] Chloride [Moles/Vol] 102 mmol/L Normal 98-108 [facility] Comment on above: Performed By: #### L 100.0100, L500.2500 ####[facility] [address] [place], [address] CO2 [Moles/Vol] 24.2 mmol/L Normal 21.0-32.0 [facility] Comment on above: Performed By: #### L 100.0100, L500.2500 ####[facility] [address] [place], [address] Creatinine [Mass/Vol] 1.01 mg/dL Normal 0.70-1.20 [facility] Comment on above: Performed By: #### L 100.0100, L500.2500 ####[facility] [address] [place], [address] GAP 12 Normal 5-15 [facility] Comment on above: Performed By: #### L 100.0100, L500.2500 ####[facility] [address] [place], [address] GFR/1.73 sq M.predicted among non-blacks MDRD (S/P/Bld) [Vol rate/Area] 55 mL/min/{1.73_m2} Low >60 [facility] Comment on above: Result Comment: mL/m in/1.73m2 CKD-EPI Creatinine Equation (2020) Performed By: #### L 100.0100, L500.2500 ####[facility] [address] [place], [address] Glucose [Mass/Vol] 104 mg/dL High 70-99 [facility] Comment on above: Performed By: #### L 100.0100, L500.2500 ####[facility] [address] [place], [address] Potassium [Moles/Vol] 3.9 mmol/L Normal 3.3-5.1 [facility] Comment on above: Performed By: #### L 100.0100, L500.2500 ####[facility] [address] [place], [address] Sodium [Moles/Vol] 139 mmol/L Normal 133-145 [facility] Comment on above: Performed By: #### L 100.0100, L500.2500 ####[facility] [address] [place], [address] Urea nitrogen [Mass/Vol] 31 mg/dL High 4-19 [facility] Comment on above: Performed By: #### L 100.0100, L500.2500 ####[facility] [address] [place], [address] CBC W/Diff, Automatedon 08-2 0-2025 Absolute Lymph 0.77 X10 3/uL Low 0.83-4.51 [facility] Comment on above: Performed By: #### L 100.0100, L500.2500 ####[facility] [address] [place], [address] Absolute Neut 7.7 X10 3/uL Normal 2.0-7.7 [facility] Comment on above: Performed By: #### L 100.0100, L500.2500 ####[facility] [address] [place], [address] Basophils/100 WBC (Bld) 0.7 % Normal 0-1 [facility] Comment on above: Performed By: #### L 100.0100, L500.2500 ####[facility] [address] [place], [address] Eosinophils/100 WBC (Bld) 1.4 % Normal 0-5 [facility] Comment on above: Performed By: #### L 100.0100, L500.2500 ####[facility] [address] [place], [address] Erythrocyte distribution width (RBC) [Ratio] 15.3 % High 11.6-14.6 [facility] Comment on above: Performed By: #### L 100.0100, L500.2500 ####[facility] [address] [place], [address] Hematocrit (Bld) [Volume fraction] 28.9 % Low 37-47 [facility] Comment on above: Performed By: #### L 100.0100, L500.2500 ####[facility] [address] [place], [address] Hemoglobin (Bld) [Mass/Vol] 9.3 g/dL Low 12.0-15.0 [facility] Comment on above: Performed By: #### L 100.0100, L500.2500 ####[facility] [address] [place], [address] IG% 0.600 Normal 0.0-0.9 [facility] Comment on above: Result Comment: IG% - Immature Granulocytes (promyelocytes, myelocytes andmetamyelocytes) > 1% indicates that a LEFT SHIFT is Present. Performed By: #### L 100.0100, L500.2500 ####[facility] [address] [place], [address] Lymphocytes/100 WBC (Bld) 8.1 % Low 19-41 [facility] Comment on above: Performed By: #### L 100.0100, L500.2500 ####[facility] [address] [place], [address] MCH (RBC) [Entitic mass] 30.2 pg Normal 27.0-32.0 [facility] Comment on above: Performed By: #### L 100.0100, L500.2500 ####[facility] [address] [place], [address] MCHC (RBC) [Mass/Vol] 32.2 g/dL Normal 32-36 [facility] Comment on above: Performed By: #### L 100.0100, L500.2500 ####[facility] [address] [place], [address] MCV (RBC) [Entitic vol] 93.8 fL Normal 81-99 [facility] Comment on above: Performed By: #### L 100.0100, L500.2500 ####[facility] [address] [place], [address] Monocytes/100 WBC (Bld) 8.9 % Normal 0-10 [facility] Comment on above: Performed By: #### L 100.0100, L500.2500 ####[facility] [address] [place], [address] Neutrophils/100 WBC (Bld) 80.3 % High 47-70 [facility] Comment on above: Performed By: #### L 100.0100, L500.2500 ####[facility] [address] [place], [address] Nucleated RBC (Bld) [#/Vol] 0 10*3/uL Normal 0-5 [facility] Comment on above: Performed By: #### L 100.0100, L500.2500 ####[facility] [address] [place], [address] Platelet mean volume (Bld) [Entitic vol] 11.0 fL Normal 6.2-12.0 [facility] Comment on above: Performed By: #### L 100.0100, L500.2500 ####[facility] [address] [place], [address] Platelets (Bld) [#/Vol] 247 10*3/uL Normal 150-450 [facility] Comment on above: Performed By: #### L 100.0100, L500.2500 ####[facility] [address] [place], [address] RBC (Bld) [#/Vol] 3.08 10*6/uL Low 4.2-5.4 [facility] Comment on above: Performed By: #### L 100.0100, L500.2500 ####[facility] [address] [place], [address] RDW SD 52.1 fl High 35.1-43.9 [facility] Comment on above: Performed By: #### L 100.0100, L500.2500 ####[facility] [address] [place], [address] WBC (Bld) [#/Vol] 9.6 10*3/uL Normal 4.4-11.0 [facility] Comment on above: Performed By: #### L 100.0100, L500.2500 ####[facility] [address] [place], [address] CNOVon 12-20-2024 CNOV Office Visit (GENSWS ) MICHAEL MEIER ([id number]) 1940 F Date Time Provider Department 12/20/24 2:30 PM SHARON JARRETT GENS During your visit today, we recorded the following information about you: Pulse Respiration Blood pressure Weight 60/minute 16/minute 137/76 111.6 kg Sharon Jarrett APRN.BRIDGE BUILDER 12/20/2024 3:39 PM Signed HISTORY AND PHYSICAL Michael J Hardeep : 1940 REFERRING PHYSICIAN: No referring provider defined for this encounter. CHIEF COMPLAINT: Patient presents with: Consult: Blood in stool HPI: Michael is a 84 year old female referred for endoscopy. Michael notes anemia, + iFOBT . 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 During her stay she was noted to be anemic at 10.6 (hgb). Upon admission to the hospital patient was taking meloxicam AND prednisone daily along with high dose of paxil.- hx of GI bleed in the past. Michael denies abdominal pain. Michael denies diarrhea. Michael notes constipation. -restarted iron Michael denies a change in bowel habits. Michael denies melena. Michael denies bright red blood per rectum. Michael denies hemorrhoids. Michael denies family history of colon issues. Michael notes heartburn. -on omperazole BID -and carafate as needed Michael denies dysphagia. Michael denies a history of ulcers/ peptic ulcer disease. Michael has a hx of JOSE c/w CPAP, however the mask was found to be ill-fitting while during her hospital stay. She is due to follow up with Dr. Alcala. Also has obstructive lung dx. Michael follows with [facility] for HTN, Afib, SSS s/p pacemaker (2010), PHTN. Last OV 10/2024. Last ECHO 10/2024 EF: 60%, Pulm systolic pressure: 65mmhg. She denies CP, dizziness, palpitations, syncope, edema. She notes +Shortness of Breath today AND 4lb weight gain- thinks this is contributing to her sob. She just came from PCP visit AND she is unable to restart lasix d/t hyponatremia. Other medical history is significant for hx of TIA (2018), obesity, arthritis, and anxiety- for which she is being weaned off her SSRI currently. Michael has undergone prior endoscopy. Last EGD was 03/[address] De León in [place]. Sedation: MAC Impression: - 3 cm hiatal hernia. - Z-line regular, 37 cm from the incisors. Biopsied. - Gastritis, characterized by congestion (edema), erosions, erythema and linear erosions. Biopsied. - Normal examined duodenum. Biopsied. Last colonoscopy was was 06/[address] Mcclure at [facility]. Sedation: Impression: - The entire examined colon is normal on direct and retroflexion views. - No specimens collected. Current Outpatient Medications Medication Sig sertraline (ZOLOFT) 25 mg tablet Take 25 mg by mouth once daily. rosuvastatin (CRESTOR) 10 mg tablet Take 1 tablet by mouth daily at bedtime. gabapentin (NEURONTIN) 100 mg capsule take 100 mg in the evening daily x 1 week then increase to 200 mg in the evening daily x 1 week then can increase to 300 mg in the evening daily meloxicam (MOBIC) 15 mg tablet Take 1 tablet by mouth once daily. Take with food. levothyroxine (SYNTHROID) 50 mcg tablet Take 1 tablet by mouth daily before breakfast. In the morning, Take on empty stomach at least 30 min before eating. For thyroid. sucralfate (CARAFATE) 100 mg/mL suspension Take 10 mL by mouth four times daily. Omeprazole Magnesium (PRILOSEC OTC) 20 mg tablet Take 1 tablet by mouth once daily. cyanocobalamin (VITAMIN B-12) 1,000 mcg tab Take 1,000 mcg by mouth once daily. hydrALAZINE (APRESOLINE) 25 mg tablet Take 50 mg by mouth two times a day at 6 am and 9 pm. Azelastine HCl (OPTIVAR) 0.05 % ophthalmic solution aspirin, enteric coated (ASPIRIN, ENTERIC COATED) 81 mg EC tablet Take 81 mg by mouth once daily. PACERONE 200 mg tablet Take 200 mg by mouth once daily. ubidecarenone (COQ-10 ORAL) Take by mouth. diltiazem CD (CARDIZEM CD) 240 mg 24 hr capsule Take 1 capsule by mouth once daily. blood sugar diagnostic test strip Use with blood glucose test 2 times daily, Insulin Dep? No Lancets Use with blood glucose test 2 times daily. Insulin Dep? No alcohol swabs Use with blood glucose test 2 times daily. Insulin Dep? No RESTASIS 0.05 % ophthalmic emulsion No current facility-administered medications for this visit. ALLERGIES: Ciprofloxacin, Demerol [Meperidine (Pf)], Opioids - Morphine Analogues, Opioids-Meperidine And Related, Penicillin G, Pravachol [Pravastatin Sodium], Sulfa (Sulfonamide Antibiotics), Vicodin [Hydrocodone-Acetamino phen], and Zithromax [Azithromycin] PAST MEDICAL HISTORY Diagnosis Date A-fib (HCC) Allergic rhinitis, cause unspecified Arrhythmia Arthritis Greater trochanteric bursitis of left hip Melanoma of skin, site unspecified 2004 back Osteoarthritis of left hip Other and unspecified hyperlipidemia Pulmonary hypertension (HCC) Situational mixed (more content not included)... Normal [facility] Priscila 12-18-2024 [facility] Telephone (FAMPWS) MICHAEL MEIER ([id number]) 1940 F Date Time Provider Department 12/18/24 MICHAEL PUGA FAMPWS During your visit today, we recorded the following information about you: Constance Ervin LPN 12/18/2024 3:47 PM Signed FYI: Yvonne with [facility] PT calls with pt's POC. PT will see pt twice a week x 4 weeks for strengthening, gait and transfer training, and fall prevention. CAROLINE Lennon Jordan L, DO 12/18/2024 4:57 PM Signed Noted, agree with below DO Jeet Dow Amanda, RN 12/18/2024 5:48 PM Signed Called and left a detailed voicemail notifying Yvonne-[facility] PT of providers message. Clinic phone number was left in case she had any questions. July Marcano RN Allergies As of Date: 12/18/2024 Noted Allergy Reaction CIPROFLOXACIN 09/05/2018 2 - Rash DEMEROL (MEPERIDINE (PF)) 02/06/2011 11 - Vomiting OPIOIDS - MORPHINE ANALOGUES 03/17/2001 5 - Intolerance Comments: nausea, dizzy, sees things OPIOIDS-MEPERIDINE AND RELATED 02/17/2001 Comments: nausea/vomiting PENICILLIN G 02/17/2001 Comments: hives PRAVACHOL (PRAVASTATIN SODIUM) 03/09/2016 14 - Other: See Comments Comments: Leg cramps SULFA (SULFONAMIDE ANTIBIOTICS) 03/17/2001 Comments: hives VICODIN (HYDROCODONE-ACETAMINO PHE*01/08/2005 5 - Intolerance Comments: dizzy,nausea,vomiting, headache ZITHROMAX (AZITHROMYCIN) 05/20/2017 5 - Intolerance Date Reviewed: 08/30/2024 Reviewed by: Julianna Cano LPN - Fully Assessed Reason for Visit: POC - PT [Other] Prescriptions as of 12/18/2024 - rosuvastatin (CRESTOR) 10 mg tablet Take 1 tablet by mouth daily at bedtime. - LORazepam (ATIVAN) 0.5 mg TAKE 1 [...] instructed every 4 hours as needed. - RESTASIS 0.05 % ophthalmic emulsion - [...] once daily. Problem List As Of Date 12/18/2024 Noted Resolved MALIG MELANOMA TRUNK [C43.59] 02/17/2001 [...] SKIN FACE NEC [D23.30] 01/20/2007 01/09/2012 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 01/09/2012 DYSMETABOLIC SYNDROME X [E88.810] 07/12/2007 A-fib (HCC) [I48.91] 10/08/2010 03/11/2015 Personal history of malignant melanoma of skin *02/08/2011 Actinic skin farhana (more content not included)... Normal [facility] 12-15-2024 [facility] Telephone (FAMWS) MICHAEL MEIER ([id number]) 1940 F Date Time Provider Department 12/15/24 MICHAEL PUGA [facility] During your visit today, we recorded the following information about you: Bhavna Arauz RN 12/15/2024 10:31 AM Signed Bhavna calling from [facility] to report plan of care for patient and [facility] will visit patient 1 time a week for 4 weeks. Bhavna notes the following medications that are not on patient's medication list that patient currently is taking: Preservation Vitamins; Patient takes this twice a day Slow Iron Fe 45 mg; Patient takes this daily Bhavna notes that patient's blood pressure was 180/78. Patient had not taken morning medications yet. Patient was asymptomatic. Bhavna did notice that patient did have a burst blood vessel in her eye. She did not notice at the beginning of visit but by end patient's eye was bloodshot. Please review and Advise, GLYNN Bonilla Jordan L, DO 12/15/2024 10:37 AM Signed Patient needs to be checking her BLOOD PRESSURE AM and PM and recording BLOOD PRESSURE and pulse rates. Call office with readings next week. Ana Romo MA 12/15/2024 1:02 PM Signed Call to Bhavna, notified her of message below from Provider, she verbalized understanding. Notes pt takes BP once daily, but will increase to bid. Bhavna did talk to pt about 1 hour ago and asked for a recheck of BP. Pt BP was 147/63. RYANI Ana Romo MA Allergies As of Date: 12/15/2024 Noted Allergy Reaction CIPROFLOXACIN 09/05/2018 2 - Rash DEMEROL (MEPERIDINE (PF)) 02/06/2011 11 - Vomiting OPIOIDS - MORPHINE ANALOGUES 03/17/2001 5 - Intolerance Comments: nausea, dizzy, sees things OPIOIDS-MEPERIDINE AND RELATED 02/17/2001 Comments: nausea/vomiting PENICILLIN G 02/17/2001 Comments: hives PRAVACHOL (PRAVASTATIN SODIUM) 03/09/2016 14 - Other: See Comments Comments: Leg cramps SULFA (SULFONAMIDE ANTIBIOTICS) 03/17/2001 Comments: hives VICODIN (HYDROCODONE-ACETAMINO PHE*01/08/2005 5 - Intolerance Comments: dizzy,nausea,vomiting, headache ZITHROMAX (AZITHROMYCIN) 05/20/2017 5 - Intolerance Date Reviewed: 08/30/2024 Reviewed by: Julianna Cano LPN - Fully Assessed Reason for Visit: [facility] Plan of Care [Other] Prescriptions as of 12/15/2024 - rosuvastatin (CRESTOR) 10 mg tablet Take 1 tablet by mouth daily at bedtime. - LORazepam (ATIVAN) 0.5 mg TAKE 1 [...] instructed every 4 hours as needed. - RESTASIS 0.05 % ophthalmic emulsion - [...] once daily. Problem List As Of Date 12/15/2024 Noted Resolved MALIG MELANOMA TRUNK [C43.59] 02/17/2001 Melanoma of skin, site unspecified [C43.9] 01/09/2012 ALLERGIC RHINITIS NOS [J30.9] Other and unspecified hyperlipidemia [E78.5] 03/11/2015 Primary hypertension [I10] Unspecified ga (more content not included)... 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 Patient currently at [facility] for HTN. Call back for Larissa is [phone]. GLYNN Montiel Rebekah, APRN.BRIDGE BUILDER 12/14/2024 2:[address] Puga will follow. Asia Rosales APRN.BRIDGE BUILDER Jacque Machuca MA 12/14/2024 2:59 PM Signed larissa informed Jacque Machuca MA Allergies As of Date: 12/14/2024 Noted Allergy Reaction CIPROFLOXACIN 09/05/2018 2 - Rash DEMEROL (MEPERIDINE (PF)) 02/06/2011 11 - Vomiting OPIOIDS - MORPHINE ANALOGUES 03/17/2001 5 - Intolerance Comments: nausea, dizzy, sees things OPIOIDS-MEPERIDINE AND RELATED 02/17/2001 Comments: nausea/vomiting PENICILLIN G 02/17/2001 Comments: hives PRAVACHOL (PRAVASTATIN SODIUM) 03/09/2016 14 - Other: See Comments Comments: Leg cramps SULFA (SULFONAMIDE ANTIBIOTICS) 03/17/2001 Comments: hives VICODIN (HYDROCODONE-ACETAMINO PHE*01/08/2005 5 - Intolerance Comments: dizzy,nausea,vomiting, headache ZITHROMAX (AZITHROMYCIN) 05/20/2017 5 - Intolerance Date Reviewed: 08/30/2024 Reviewed by: Julianna Cano LPN - Fully Assessed Reason for Visit: Orders [681] Prescriptions as of 12/14/2024 - rosuvastatin (CRESTOR) 10 mg tablet Take 1 tablet by mouth daily at bedtime. - LORazepam (ATIVAN) 0.5 mg TAKE 1 [...] instructed every 4 hours as needed. - RESTASIS 0.05 % ophthalmic emulsion - [...] once daily. Problem List As Of Date 12/14/2024 Noted Resolved MALIG MELANOMA TRUNK [C43.59] 02/17/2001 [...] SKIN FACE NEC [D23.30] 01/20/2007 01/09/2012 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 01/09/2012 DYSMETABOLIC SYNDROME X [E88.810] 07/12/2007 A-fib (HCC) [I48.91] 10/08/2010 03/11/2015 Personal history of malignant melanoma of skin *02/08/2011 Actinic skin damage [L57.8] 01/09/2012 03/11/2015 Solar Lentigines [L81.4] 01/09/2012 03/11/2015 Surgical Scars [ (more content not included)... Normal [facility] Discharge Instructionon 12-01 Discharge Instruction Normal [facility] Potassiumon 12-13-2024 Potassium [Moles/Vol] 4.6 mmol/L Normal 3.3-5.1 [facility] Comment on above: Performed By: #### L 501.5600 ####[facility] [address] [place], [place], [address] Potassium measurement (mass/ volume)Ordered By: Radha Tammy on 12-13-2024 Potassium (Unsp spec) [Mass/Vol] 4.6 mmol/L 3.3-5.1 [facility] Anion gap in Serum or Plasma Ordered By: Radha Munoz on 12-12-2024 Anion gap [Moles/Vol] 13 mmol/L 09-14 [facility] BUN/creatinine ratioOrdered By: Radha Munoz on 12-12-2024 Urea nitrogen/Creatinine [Mass ratio] 29.1 mg/mg High 02-19 [facility] Basic Metabolic Profile (BMP )on 12-12-2024 BUN/CRE 29.1 RATIO High 02-19 [facility] Comment on above: Performed By: #### L 501.7300, L500.2500 ####[facility] [address] [place], [place], [address] Calcium [Mass/Vol] 9.5 mg/dL Normal 7.6-11.0 [facility] Comment on above: Performed By: #### L 501.7300, L500.2500 ####[facility] [address] [place], [address] Chloride [Moles/Vol] 97 mmol/L Low 98-108 [facility] Comment on above: Performed By: #### L 501.7300, L500.2500 ####[facility] [address] [place], [address] CO2 [Moles/Vol] 19.8 mmol/L Low 21.0-32.0 [facility] Comment on above: Performed By: #### L 501.7300, L500.2500 ####[facility] [address] [place], [address] Creatinine [Mass/Vol] 1.02 mg/dL Normal 0.70-1.20 [facility] Comment on above: Performed By: #### L 501.7300, L500.2500 ####[facility] [address] [place], [address] ECRCL 52.04 ml/min Normal 50-250 [facility] Comment on above: Performed By: #### L 501.7300, L500.2500 ####[facility] [address] [place], [address] GAP 13 Normal 5-15 [facility] Comment on above: Performed By: #### L 501.7300, L500.2500 ####[facility] [address] [place], [address] GFR/1.73 sq M.predicted among non-blacks MDRD (S/P/Bld) [Vol rate/Area] 55 mL/min/{1.73_m2} Low >60 [facility] Comment on above: Result Comment: mL/m in/1.73m2 CKD-EPI Creatinine Equation (2020) Performed By: #### L 501.7300, L500.2500 ####[facility] [address] [place], [address] Glucose [Mass/Vol] 100 mg/dL High 70-99 [facility] Comment on above: Performed By: #### L 501.7300, L500.2500 ####[facility] [address] [place], [address] Potassium [Moles/Vol] 5.1 mmol/L Normal 3.3-5.1 [facility] Comment on above: Result Comment: Hemo lysis present, Results??could be affected.?? Performed By: #### L 501.7300, L500.2500 ####[facility] [address] [place], [address] Sodium [Moles/Vol] 130 mmol/L Low 133-145 [facility] Comment on above: Performed By: #### L 501.7300, L500.2500 ####[facility] [address] [place], [address] Urea nitrogen [Mass/Vol] 30 mg/dL High 4-19 [facility] Comment on above: Performed By: #### L 501.7300, L500.2500 ####[facility] [address] [place], [address] Carbon dioxide, total [Moles /volume] in Central venous bloodOrdered By: Radha Munoz on 12-12-2024 CO2 [Moles/Vol] 19.8 mmol/L Low 21.0-32.0 [facility] Chloride assayOrdered By: Alex Munoz on 12-12-2024 Chloride [Moles/Vol] 97 mmol/L Low 98-108 [facility] Glomerular filtration rate ( GFR) estimation/1.73 sq m using serum, plasma, or whole bOrdered By: Radha Munoz on 12-12-2024 GFR/1.73 sq M.predicted among non-blacks MDRD (S/P/Bld) [Vol rate/Area] 55 mL/min/{1.73_m2} Low >60 [facility] Comment on above: mL/min/1.73m2 CKD-EP I Creatinine Equation (2020) Osmolality, Serumon 12-13-19 25 OSMOLALITY,SER 282 mOsm/KG Normal 280-301 [facility] Comment on above: Performed By: #### L 501.7300, L500.2500 ####[facility] [address] [place], [place], [address] Serum creatinine measurement (mass/volume)Ordered By: Radha Tammy on 12-12-2024 Creatinine [Mass/Vol] 1.02 mg/dL 0.70-1.20 [facility] Serum glucose measurement (m ass/volume)Ordered By: Radha Tammy on 12-12-2024 Glucose [Mass/Vol] 100 mg/dL High 70-99 [facility] Serum or plasma calcium julee urement (mass/volume)Ordered By: Radha Tammy on 12-12-2024 Calcium [Mass/Vol] 9.5 mg/dL 7.6-11.0 [facility] Serum or plasma urea nitroge n measurement (mass/volume)Ordered By: Radha Tammy on 12-12-2024 Urea nitrogen [Mass/Vol] 30 mg/dL High 4-19 [facility] Sodium levelOrdered By: Radha Burksafrica on 12-12-2024 Sodium [Moles/Vol] 130 mmol/L Low 133-145 [facility] Osmolality urOrdered By: Evon watson Tammy on 12-11-2024 Osmolality (U) [Osmolality] 539 mOsm/KG >50 [facility] Comment on above: Normal Urine Referen ce Ranges Random: 50 - 1200 mOsm/kg H20 depending on fluid intake Random: >850 mOsm/kg after 12 hour fluid restriction 24 hour: ~300 - 900 mOsm/kg H2O Osmolality, Urineon 12-12-19 25 OSMOLALITY,UR 539 mOsm/KG Normal [facility] Comment on above: Result Comment: Norm al Urine Reference Ranges Random: 50 - 1200 mOsm/kg H20 depending on fluid intake Random: >850 mOsm/kg after 12 hour fluid restriction 24 hour: 300 - 900 mOsm/kg H2O Performed By: #### L 501.5500, L501.7400 ####[facility] [address] [place], [address] Urine Sodiumon 12-11-2024 Sodium (U) [Moles/Vol] 59 mmol/L Normal Not Establ. [facility] Comment on above: Performed By: #### L 501.5500, L501.7400 ####[facility] [address] [place], [address] Urine sodium measurement (mo les/volume)Ordered By: Radha Munoz on 12-11-2024 Sodium (U) [Moles/Vol] 59 mmol/L Not Establ. [facility] Basic Metabolic Profile (BMP )on 12-10-2024 BUN/CRE 24.2 RATIO High 10-20 [facility] Comment on above: Performed By: #### L 500.2500 ####[facility] [address] [place], [address] Calcium [Mass/Vol] 8.6 mg/dL Normal 7.6-11.0 [facility] Comment on above: Performed By: #### L 500.2500 ####[facility] [address] [place], [address] Chloride [Moles/Vol] 96 mmol/L Low 98-108 [facility] Comment on above: Performed By: #### L 500.2500 ####[facility] [address] [place], [address] CO2 [Moles/Vol] 22.1 mmol/L Normal 21.0-32.0 [facility] Comment on above: Performed By: #### L 500.2500 ####[facility] [address] [place], [address] Creatinine [Mass/Vol] 1.06 mg/dL Normal 0.70-1.20 [facility] Comment on above: Performed By: #### L 500.2500 ####[facility] [address] [place], [address] ECRCL 49.90 ml/min Low 50-250 [facility] Comment on above: Performed By: #### L 500.2500 ####[facility] [address] [place], [address] GAP 10 Normal 5-15 [facility] Comment on above: Performed By: #### L 500.2500 ####[facility] [address] [place], [address] GFR/1.73 sq M.predicted among non-blacks MDRD (S/P/Bld) [Vol rate/Area] 52 mL/min/{1.73_m2} Low >60 [facility] Comment on above: Result Comment: mL/m in/1.73m2 CKD-EPI Creatinine Equation (2020) Performed By: #### L 500.2500 ####[facility] [address] [place], [address] Glucose [Mass/Vol] 113 mg/dL High 70-99 [facility] Comment on above: Performed By: #### L 500.2500 ####[facility] [address] [place], [address] Potassium [Moles/Vol] 4.4 mmol/L Normal 3.3-5.1 [facility] Comment on above: Performed By: #### L 500.2500 ####[facility] [address] [place], [address] Sodium [Moles/Vol] 128 mmol/L Low 133-145 [facility] Comment on above: Performed By: #### L 500.2500 ####[facility] [address] [place], [address] Urea nitrogen [Mass/Vol] 26 mg/dL High 4-19 [facility] Comment on above: Performed By: #### L 500.2500 ####[facility] [address] [place], [address] Basic Metabolic Profile (BMP )on 12-07-2024 BUN/CRE 24.6 RATIO High 10-20 [facility] Comment on above: Performed By: #### L 100.0600, L500.2500 ####[facility] [address] [place], [address] Calcium [Mass/Vol] 8.9 mg/dL Normal 7.6-11.0 [facility] Comment on above: Performed By: #### L 100.0600, L500.2500 ####[facility] [address] [place], [address] Chloride [Moles/Vol] 92 mmol/L Low 98-108 [facility] Comment on above: Performed By: #### L 100.0600, L500.2500 ####[facility] [address] [place], [address] CO2 [Moles/Vol] 24.1 mmol/L Normal 21.0-32.0 [facility] Comment on above: Performed By: #### L 100.0600, L500.2500 ####[facility] [address] [place], [address] Creatinine [Mass/Vol] 0.91 mg/dL Normal 0.70-1.20 [facility] Comment on above: Performed By: #### L 100.0600, L500.2500 ####[facility] [address] [place], [address] ECRCL 58.12 ml/min Normal 50-250 [facility] Comment on above: Performed By: #### L 100.0600, L500.2500 ####[facility] [address] [place], [address] GAP 10 Normal 5-15 [facility] Comment on above: Performed By: #### L 100.0600, L500.2500 ####[facility] [address] [place], [address] GFR/1.73 sq M.predicted among non-blacks MDRD (S/P/Bld) [Vol rate/Area] 63 mL/min/{1.73_m2} Normal >60 [facility] Comment on above: Result Comment: mL/m in/1.73m2 CKD-EPI Creatinine Equation (2020) Performed By: #### L 100.0600, L500.2500 ####[facility] [address] [place], [address] Glucose [Mass/Vol] 105 mg/dL High 70-99 [facility] Comment on above: Performed By: #### L 100.0600, L500.2500 ####[facility] [address] [place], [address] Potassium [Moles/Vol] 4.7 mmol/L Normal 3.3-5.1 [facility] Comment on above: Performed By: #### L 100.0600, L500.2500 ####[facility] [address] [place], [address] Sodium [Moles/Vol] 127 mmol/L Low 133-145 [facility] Comment on above: Performed By: #### L 100.0600, L500.2500 ####[facility] [address] [place], [address] Urea nitrogen [Mass/Vol] 22 mg/dL High 4-19 [facility] Comment on above: Performed By: #### L 100.0600, L500.2500 ####[facility] [address] [place], [address] HH, Hemoglobin AND Hematocri ton 12-07-2024 Hematocrit (Bld) [Volume fraction] 30.4 % Low 37-47 [facility] Comment on above: Performed By: #### L 100.0600, L500.2500 ####[facility] [address] [place], [address] Hemoglobin (Bld) [Mass/Vol] 10.5 g/dL Low 12.0-15.0 [facility] Comment on above: Performed By: #### L 100.0600, L500.2500 ####[facility] [address] [place], [address] Hematocrit Auto (Bld) [Volum e fraction]Ordered By: Radha Tammy on 12-07-2024 Hematocrit (Bld) [Volume fraction] 30.4 % Low 37-47 [facility] Hemoglobin measurementOrdere d By: Radha Burksafrica on 12-07-2024 Hemoglobin (Bld) [Mass/Vol] 10.5 g/dL Low 12.0-15.0 [facility] L509.6001on 12-06-2024 CORTISOL 27.30 ug/dL High 6.02-18.40 [facility] Comment on above: Order Comment: Must be drawn 30-60 min AFTER cosyntropin admin. Performed By: #### L 509.6001 ####[facility] [address] [place], [address] CORTISOL 6.62 ug/dL Normal 6.02-18.40 [facility] Comment on above: Order Comment: must be performed shortly BEFORE cosyntropin admin Performed By: #### L 509.6001 ####[facility] [address] [place], [address] Serum or plasma cortisol theresa surement (mass/volume)Ordered By: Radha Munoz on 12-06-2024 Cortisol [Mass/Vol] 27.30 ug/dL High 6.02-18.40 [facility] Stool Occult Blood iFOBon STOB Normal [facility] Comment on above: Performed By: #### M 100.7900 ####[facility] [address] [place], [address] Stool gastrointestinal hemog lobin detection by immunologic methodOrdered By: Radha Munoz on 12-05-2024 Lower GI hemoglobin IA Ql (Stl) Positive Abnormal [facility] Absolute lymphocyte countOrd ered By: Maia Garcia on 12-04-2024 Lymphocytes Auto (Unsp spec) [#/Vol] 1.16 10*3/uL 0.83-4.51 [facility] Absolute neutrophil countOrd ered By: Maia Garcia on 12-04-2024 Neutrophils (Bld) [#/Vol] 5.9 10*3/uL 2.0-7.7 [facility] Automated lymphocyte count a s percentage of total leukocytesOrdered By: Maia Garcia on 12-04-2024 Lymphocytes/100 WBC Auto (Unsp spec) 13.8 % Low 19-41 [facility] Basophil percentageOrdered B y: Maia Garcia on 12-04-2024 Basophils/100 WBC (Bld) 0.8 % 0-1 [facility] Bilirubin, totalOrdered By: Maia Poolchristo on 12-04-2024 Bilirubin [Mass/Vol] 0.41 mg/dL 0.00-1.30 [facility] CBC W/Diff, Automatedon Absolute Lymph 1.16 X10 3/uL Normal 0.83-4.51 [facility] Comment on above: Performed By: #### L 500.4050, L100.0100, L501.5200, L501.2300 ####[facility] [address] [place], [address] Absolute Neut 5.9 X10 3/uL Normal 2.0-7.7 [facility] Comment on above: Performed By: #### L 500.4050, L100.0100, L501.5200, L501.2300 ####[facility] [address] [place], [address] Basophils/100 WBC (Bld) 0.8 % Normal 0-1 [facility] Comment on above: Performed By: #### L 500.4050, L100.0100, L501.5200, L501.2300 ####[facility] [address] [place], [address] Eosinophils/100 WBC (Bld) 3.2 % Normal 0-5 [facility] Comment on above: Performed By: #### L 500.4050, L100.0100, L501.5200, L501.2300 ####[facility] [address] [place], [address] Erythrocyte distribution width (RBC) [Ratio] 14.6 % Normal 11.6-14.6 [facility] Comment on above: Performed By: #### L 500.4050, L100.0100, L501.5200, L501.2300 ####[facility] [address] [place], [address] Hematocrit (Bld) [Volume fraction] 28.9 % Low 37-47 [facility] Comment on above: Performed By: #### L 500.4050, L100.0100, L501.5200, L501.2300 ####[facility] [address] [place], [address] Hemoglobin (Bld) [Mass/Vol] 9.8 g/dL Low 12.0-15.0 [facility] Comment on above: Performed By: #### L 500.4050, L100.0100, L501.5200, L501.2300 ####[facility] [address] [place], [address] IG% 0.600 Normal 0.0-0.9 [facility] Comment on above: Result Comment: IG% - Immature Granulocytes (promyelocytes, myelocytes andmetamyelocytes) > 1% indicates that a LEFT SHIFT is Present. Performed By: #### L 500.4050, L100.0100, L501.5200, L501.2300 ####[facility] [address] [place], [address] Lymphocytes/100 WBC (Bld) 13.8 % Low 19-41 [facility] Comment on above: Performed By: #### L 500.4050, L100.0100, L501.5200, L501.2300 ####[facility] [address] [place], [address] MCH (RBC) [Entitic mass] 30.5 pg Normal 27.0-32.0 [facility] Comment on above: Performed By: #### L 500.4050, L100.0100, L501.5200, L501.2300 ####[facility] [address] [place], [address] MCHC (RBC) [Mass/Vol] 33.9 g/dL Normal 32-36 [facility] Comment on above: Performed By: #### L 500.4050, L100.0100, L501.5200, L501.2300 ####[facility] [address] [place], [address] MCV (RBC) [Entitic vol] 90.0 fL Normal 81-99 [facility] Comment on above: Performed By: #### L 500.4050, L100.0100, L501.5200, L501.2300 ####[facility] [address] [place], [address] Monocytes/100 WBC (Bld) 11.9 % High 0-10 [facility] Comment on above: Performed By: #### L 500.4050, L100.0100, L501.5200, L501.2300 ####[facility] [address] [place], [address] Neutrophils/100 WBC (Bld) 69.7 % Normal 47-70 [facility] Comment on above: Performed By: #### L 500.4050, L100.0100, L501.5200, L501.2300 ####[facility] [address] [place], [address] Nucleated RBC (Bld) [#/Vol] 0 10*3/uL Normal 0-5 [facility] Comment on above: Performed By: #### L 500.4050, L100.0100, L501.5200, L501.2300 ####[facility] [address] [place], [address] Platelet mean volume (Bld) [Entitic vol] 10.2 fL Normal 6.2-12.0 [facility] Comment on above: Performed By: #### L 500.4050, L100.0100, L501.5200, L501.2300 ####[facility] [address] [place], [address] Platelets (Bld) [#/Vol] 177 10*3/uL Normal 150-450 [facility] Comment on above: Performed By: #### L 500.4050, L100.0100, L501.5200, L501.2300 ####[facility] [address] [place], [address] RBC (Bld) [#/Vol] 3.21 10*6/uL Low 4.2-5.4 [facility] Comment on above: Performed By: #### L 500.4050, L100.0100, L501.5200, L501.2300 ####[facility] [address] [place], [address] RDW SD 48.6 fl High 35.1-43.9 [facility] Comment on above: Performed By: #### L 500.4050, L100.0100, L501.5200, L501.2300 ####[facility] [address] [place], [address] WBC (Bld) [#/Vol] 8.4 10*3/uL Normal 4.4-11.0 [facility] Comment on above: Performed By: #### L 500.4050, L100.0100, L501.5200, L501.2300 ####[facility] [address] [place], [address] Comprehensive Metabolic [facility] 12-04-2024 Albumin [Mass/Vol] 3.4 g/dL Normal 3.4-4.8 [facility] Comment on above: Performed By: #### L 500.4050, L100.0100, L501.5200, L501.2300 ####[facility] [address] [place], [address] Albumin/Globulin [Mass ratio] 1.8 {ratio} Normal 0.9-2.4 [facility] Comment on above: Performed By: #### L 500.4050, L100.0100, L501.5200, L501.2300 ####[facility] [address] [place], [address] ALK PHOS 55 U/L Normal 35-104 [facility] Comment on above: Performed By: #### L 500.4050, L100.0100, L501.5200, L501.2300 ####[facility] [address] [place], [address] ALT [Catalytic activity/Vol] 27 U/L Normal <=34 [facility] Comment on above: Performed By: #### L 500.4050, L100.0100, L501.5200, L501.2300 ####[facility] [address] [place], [address] AST [Catalytic activity/Vol] 25 U/L Normal <=31 [facility] Comment on above: Performed By: #### L 500.4050, L100.0100, L501.5200, L501.2300 ####[facility] [address] [place], [address] Bilirubin [Mass/Vol] 0.41 mg/dL Normal 0.00-1.30 [facility] Comment on above: Performed By: #### L 500.4050, L100.0100, L501.5200, L501.2300 ####[facility] [address] [place], [address] BUN/CRE 31.5 RATIO High 10-20 [facility] Comment on above: Performed By: #### L 500.4050, L100.0100, L501.5200, L501.2300 ####[facility] [address] [place], [address] Calcium [Mass/Vol] 8.5 mg/dL Normal 7.6-11.0 [facility] Comment on above: Performed By: #### L 500.4050, L100.0100, L501.5200, L501.2300 ####[facility] [address] [place], [address] Chloride [Moles/Vol] 96 mmol/L Low 98-108 [facility] Comment on above: Performed By: #### L 500.4050, L100.0100, L501.5200, L501.2300 ####[facility] [address] [place], [address] CO2 [Moles/Vol] 23.6 mmol/L Normal 21.0-32.0 [facility] Comment on above: Performed By: #### L 500.4050, L100.0100, L501.5200, L501.2300 ####[facility] [address] [place], [address] Creatinine [Mass/Vol] 1.02 mg/dL Normal 0.70-1.20 [facility] Comment on above: Performed By: #### L 500.4050, L100.0100, L501.5200, L501.2300 ####[facility] [address] [place], [address] ECRCL 37.60 ml/min Low 50-250 [facility] Comment on above: Performed By: #### L 500.4050, L100.0100, L501.5200, L501.2300 ####[facility] [address] [place], [address] GAP 9 Normal 5-15 [facility] Comment on above: Performed By: #### L 500.4050, L100.0100, L501.5200, L501.2300 ####[facility] [address] [place], [address] GFR/1.73 sq M.predicted among non-blacks MDRD (S/P/Bld) [Vol rate/Area] 55 mL/min/{1.73_m2} Low >60 [facility] Comment on above: Result Comment: mL/m in/1.73m2 CKD-EPI Creatinine Equation (2020) Performed By: #### L 500.4050, L100.0100, L501.5200, L501.2300 ####[facility] [address] [place], [address] Globulin (S) [Mass/Vol] 1.9 g/dL Low 2.2-4.2 [facility] Comment on above: Performed By: #### L 500.4050, L100.0100, L501.5200, L501.2300 ####[facility] [address] [place], [address] Glucose [Mass/Vol] 100 mg/dL High 70-99 [facility] Comment on above: Performed By: #### L 500.4050, L100.0100, L501.5200, L501.2300 ####[facility] [address] [place], [address] Potassium [Moles/Vol] 4.7 mmol/L Normal 3.3-5.1 [facility] Comment on above: Performed By: #### L 500.4050, L100.0100, L501.5200, L501.2300 ####[facility] [address] [place], [address] Sodium [Moles/Vol] 129 mmol/L Low 133-145 [facility] Comment on above: Performed By: #### L 500.4050, L100.0100, L501.5200, L501.2300 ####[facility] [address] [place], [address] T PROT 5.3 g/dL Low 5.9-8.4 [facility] Comment on above: Performed By: #### L 500.4050, L100.0100, L501.5200, L501.2300 ####[facility] [address] [place], [address] Urea nitrogen [Mass/Vol] 32 mg/dL High 4-19 [facility] Comment on above: Performed By: #### L 500.4050, L100.0100, L501.5200, L501.2300 ####[facility] [address] [place], [address] Creatinine, Urine (random)on 12-04-2024 UR CREAT 23.20 mg/dL Low 28.00-217.00 [facility] Comment on above: Performed By: #### L 501.1200, L502.0715, L501.7400, L501.5500 ####[facility] [address] [place], [address] Eosinophil percentageOrdered By: Maia Garcia on 12-04-2024 Eosinophils/100 WBC (Bld) 3.2 % 0-5 [facility] Erythrocyte distribution wid th ratioOrdered By: Maia Garcia on 12-04-2024 Erythrocyte distribution width (RBC) [Ratio] 14.6 % 11.6-14.6 [facility] Erythrocyte distribution wid th standard deviationOrdered By: Maiachristo Miles on 12-04-2024 Erythrocyte distribution width (RBC) [Ratio] 48.6 fl High 35.1-43.9 [facility] Immature granulocytes/100 WB C Auto (Bld)Ordered By: Maia Garcia on 12-04-2024 Immature granulocytes/100 WBC (Bld) 0.600 % 0.0-0.9 [facility] Comment on above: IG% - Immature Granu locytes (promyelocytes, myelocytes and metamyelocytes) > 1% indicates that a LEFT SHIFT is Present. L509.6001on 12-04-2024 CORTISOL 2.72 ug/dL Low 6.02-18.40 [facility] Comment on above: Performed By: #### L 509.6001 ####[facility] [address] [place], [place], [id number] Laboratory - Chemistry and C hemistry - challengeOrdered By: Maia Miles on 12-04-2024 AST [Catalytic activity/Vol] 25 U/L <32 [facility] MCV (mean corpuscular volume ) determinationOrdered By: Maia Garcia on 12-04-2024 MCV (RBC) [Entitic vol] 90.0 fL 81-99 [facility] Magnesiumon 12-04-2024 Magnesium [Mass/Vol] 2.3 mg/dL High 1.5-2.2 [facility] Comment on above: Performed By: #### L 500.4050, L100.0100, L501.5200, L501.2300 ####[facility] [address] [place], [place], [id number] Magnesium measurement (mass/ volume)Ordered By: Maia Garcia on 12-04-2024 Magnesium (Unsp spec) [Mass/Vol] 2.3 mg/dL High 1.5-2.2 [facility] Mean corpuscular hemoglobin (MCH) determinationOrdered By: Maia Miles on 12-04-2024 MCH (RBC) [Entitic mass] 30.5 pg 27.0-32.0 [facility] Mean corpuscular hemoglobin concentration (MCHC) determinationOrdered By: Maia Garcia on 12-04-2024 MCHC (RBC) [Mass/Vol] 33.9 g/dL 32-36 [facility] Mean platelet volume determi nationOrdered By: Maiachristo Garcia on 12-04-2024 Platelet mean volume (Bld) [Entitic vol] 10.2 fL 6.2-12.0 [facility] Monocyte percentageOrdered B y: Maia Garcia on 12-04-2024 Monocytes/100 WBC (Bld) 11.9 % High 0-10 [facility] Neutrophil percentageOrdered By: Maia Garcia on 12-04-2024 Neutrophils/100 WBC (Bld) 69.7 % 47-70 [facility] Nucleated red blood cell per centageOrdered By: Maiachristo Garcia on 12-04-2024 Nucleated RBC/100 WBC (Bld) [Ratio] 0 % 0-5 [facility] Osmolality, Serumon 12-05-19 25 OSMOLALITY,SER 283 mOsm/KG Normal 280-301 [facility] Comment on above: Performed By: #### L 501.7300 ####[facility] [address] [place], [place], [address] Osmolality, Urineon 12-05-19 25 OSMOLALITY,UR 298 mOsm/KG Normal [facility] Comment on above: Result Comment: Norm al Urine Reference Ranges Random: 50 - 1200 mOsm/kg H20 depending on fluid intake Random: >850 mOsm/kg after 12 hour fluid restriction 24 hour: 300 - 900 mOsm/kg H2O Performed By: #### L 501.1200, L502.0715, L501.7400, L501.5500 ####[facility] [address] [facility] [place], [place], [address] Phosphoruson 12-04-2024 Phosphate [Mass/Vol] 3.4 mg/dL Normal 2.7-4.5 [facility] Comment on above: Performed By: #### L 500.4050, L100.0100, L501.5200, L501.2300 ####[facility] [address] [place], [address] Platelet countOrdered By: Nic Garcai on 12-04-2024 Platelets (Bld) [#/Vol] 177 10*3/uL 150-450 [facility] RBC Auto (Bld) [#/Vol]Ordere d By: Maia Garcia on 12-04-2024 RBC (Bld) [#/Vol] 3.21 10*6/uL Low 4.2-5.4 [facility] Random urine creatinine julee urement (mass/volume)Ordered By: Radha Burksafrica on 12-04-2024 Creatinine Unsp time (U) [Mass/Vol] 23.20 mg/dL Low 28.00-217.00 [facility] Serum globulin measurementOr dered By: Maia Garcia on 12-04-2024 Globulin (S) [Mass/Vol] 1.9 g/dL Low 2.2-4.2 [facility] Serum or plasma alanine sprague otransferase (ALT) measurementOrdered By: Maia Garcia on 12-04-2024 ALT [Catalytic activity/Vol] 27 U/L <35 [facility] Serum or plasma albumin julee urement (mass/volume)Ordered By: Maia Miles on 12-04-2024 Albumin [Mass/Vol] 3.4 g/dL 3.4-4.8 [facility] Serum or plasma albumin/glob ulin mass ratioOrdered By: Maia Garcia on 12-04-2024 Albumin/Globulin [Mass ratio] 1.8 {ratio} 0.9-2.4 [facility] Serum or plasma alkaline rachel sphatase measurementOrdered By: Maia Ferminie on 12-04-2024 ALP [Catalytic activity/Vol] 55 U/L 35-104 [facility] Total proteinOrdered By: Roscoe villafuerte ShamarnarcisoAstrid on 12-04-2024 Protein [Mass/Vol] 5.3 g/dL Low 5.9-8.4 [facility] Urea Nitrogen, Urineon 12-04 URINE UREA 346 mg/dL Normal NO RANGE EST. [facility] Comment on above: Performed By: #### L 501.1200, L502.0715, L501.7400, L501.5500 ####[facility] [address] [place], [address] Urine Sodiumon 12-04-2024 Sodium (U) [Moles/Vol] 58 mmol/L Normal Not Establ. [facility] Comment on above: Performed By: #### L 501.1200, L502.0715, L501.7400, L501.5500 ####[facility] [address] [place], [address] White blood cell (WBC) count Ordered By: Maia Garcia on 12-04-2024 WBC (Bld) [#/Vol] 8.4 10*3/uL 4.4-11.0 [facility] Anion gap in Serum or Plasma Ordered By: Waleska Phillips on 12-03-2024 Anion gap [Moles/Vol] 11 mmol/L 5-15 [facility] BUN/creatinine ratioOrdered By: Waleska Phillips on 12-03-2024 Urea nitrogen/Creatinine [Mass ratio] 30.7 mg/mg High 10-20 [facility] Basic Metabolic Profile (BMP )on 12-03-2024 BUN/CRE 30.7 RATIO High 02-19 [facility] Comment on above: Performed By: #### L 500.2500 ####[facility] [address] [place], [address] Calcium [Mass/Vol] 8.7 mg/dL Normal 7.6-11.0 [facility] Comment on above: Performed By: #### L 500.2500 ####[facility] [address] [place], [address] Chloride [Moles/Vol] 94 mmol/L Low 98-108 [facility] Comment on above: Performed By: #### L 500.2500 ####[facility] [address] [place], [address] CO2 [Moles/Vol] 23.4 mmol/L Normal 21.0-32.0 [facility] Comment on above: Performed By: #### L 500.2500 ####[facility] [address] [place], [address] Creatinine [Mass/Vol] 1.02 mg/dL Normal 0.70-1.20 [facility] Comment on above: Performed By: #### L 500.2500 ####[facility] [address] [place], [address] ECRCL 51.48 ml/min Normal 50-250 [facility] Comment on above: Performed By: #### L 500.2500 ####[facility] [address] [place], [address] GAP 11 Normal 5-15 [facility] Comment on above: Performed By: #### L 500.2500 ####[facility] [address] [place], [address] GFR/1.73 sq M.predicted among non-blacks MDRD (S/P/Bld) [Vol rate/Area] 55 mL/min/{1.73_m2} Low >60 [facility] Comment on above: Result Comment: mL/m in/1.73m2 CKD-EPI Creatinine Equation (2020) Performed By: #### L 500.2500 ####[facility] [address] [place], [address] Glucose [Mass/Vol] 111 mg/dL High 70-99 [facility] Comment on above: Performed By: #### L 500.2500 ####[facility] [address] [place], [address] Potassium [Moles/Vol] 4.7 mmol/L Normal 3.3-5.1 [facility] Comment on above: Performed By: #### L 500.2500 ####[facility] [address] [place], [address] Sodium [Moles/Vol] 127 mmol/L Low 133-145 [facility] Comment on above: Performed By: #### L 500.2500 ####[facility] [address] [place], [address] Urea nitrogen [Mass/Vol] 31 mg/dL High 4-19 [facility] Comment on above: Performed By: #### L 500.2500 ####[facility] [address] [place], [address] BUN/CRE 34.2 RATIO High 10-20 [facility] Comment on above: Performed By: #### L 100.0500, L500.2500 ####[facility] [address] [place], [address] Calcium [Mass/Vol] 8.5 mg/dL Normal 7.6-11.0 [facility] Comment on above: Performed By: #### L 100.0500, L500.2500 ####[facility] [address] [place], [address] Chloride [Moles/Vol] 95 mmol/L Low 98-108 [facility] Comment on above: Performed By: #### L 100.0500, L500.2500 ####[facility] [address] [place], [address] CO2 [Moles/Vol] 23.6 mmol/L Normal 21.0-32.0 [facility] Comment on above: Performed By: #### L 100.0500, L500.2500 ####[facility] [address] [place], [address] Creatinine [Mass/Vol] 1.01 mg/dL Normal 0.70-1.20 [facility] Comment on above: Performed By: #### L 100.0500, L500.2500 ####[facility] [address] [place], [address] ECRCL 51.99 ml/min Normal 50-250 [facility] Comment on above: Performed By: #### L 100.0500, L500.2500 ####[facility] [address] [place], [address] GAP 10 Normal 5-15 [facility] Comment on above: Performed By: #### L 100.0500, L500.2500 ####[facility] [address] [place], [address] GFR/1.73 sq M.predicted among non-blacks MDRD (S/P/Bld) [Vol rate/Area] 55 mL/min/{1.73_m2} Low >60 [facility] Comment on above: Result Comment: mL/m in/1.73m2 CKD-EPI Creatinine Equation (2020) Performed By: #### L 100.0500, L500.2500 ####[facility] [address] [place], [address] Glucose [Mass/Vol] 116 mg/dL High 70-99 [facility] Comment on above: Performed By: #### L 100.0500, L500.2500 ####[facility] [address] [place], [address] Potassium [Moles/Vol] 4.5 mmol/L Normal 3.3-5.1 [facility] Comment on above: Performed By: #### L 100.0500, L500.2500 ####[facility] [address] [place], [address] Sodium [Moles/Vol] 128 mmol/L Low 133-145 [facility] Comment on above: Performed By: #### L 100.0500, L500.2500 ####[facility] [address] [place], [address] Urea nitrogen [Mass/Vol] 35 mg/dL High 4-19 [facility] Comment on above: Performed By: #### L 100.0500, L500.2500 ####[facility] [address] [place], [address] CBC-Complete Blood Cnt No Di ffon 12-03-2024 Erythrocyte distribution width (RBC) [Ratio] 14.7 % High 11.6-14.6 [facility] Comment on above: Performed By: #### L 100.0500, L500.2500 ####[facility] [address] [place], [address] Hematocrit (Bld) [Volume fraction] 31.2 % Low 37-47 [facility] Comment on above: Performed By: #### L 100.0500, L500.2500 ####[facility] [address] [place], [address] Hemoglobin (Bld) [Mass/Vol] 10.6 g/dL Low 12.0-15.0 [facility] Comment on above: Performed By: #### L 100.0500, L500.2500 ####[facility] [address] [place], [address] MCH (RBC) [Entitic mass] 30.4 pg Normal 27.0-32.0 [facility] Comment on above: Performed By: #### L 100.0500, L500.2500 ####[facility] [address] [place], [address] MCHC (RBC) [Mass/Vol] 34.0 g/dL Normal 32-36 [facility] Comment on above: Performed By: #### L 100.0500, L500.2500 ####[facility] [address] [place], [address] MCV (RBC) [Entitic vol] 89.4 fL Normal 81-99 [facility] Comment on above: Performed By: #### L 100.0500, L500.2500 ####[facility] [address] [place], [address] Platelet mean volume (Bld) [Entitic vol] 10.3 fL Normal 6.2-12.0 [facility] Comment on above: Performed By: #### L 100.0500, L500.2500 ####[facility] [address] [place], [address] Platelets (Bld) [#/Vol] 202 10*3/uL Normal 150-450 [facility] Comment on above: Performed By: #### L 100.0500, L500.2500 ####[facility] [address] [place], [address] RBC (Bld) [#/Vol] 3.49 10*6/uL Low 4.2-5.4 [facility] Comment on above: Performed By: #### L 100.0500, L500.2500 ####[facility] [address] [place], [address] RDW SD 47.8 fl High 35.1-43.9 [facility] Comment on above: Performed By: #### L 100.0500, L500.2500 ####[facility] [address] [place], [address] WBC (Bld) [#/Vol] 9.8 10*3/uL Normal 4.4-11.0 [facility] Comment on above: Performed By: #### L 100.0500, L500.2500 ####[facility] [address] [place], [address] Carbon dioxide, total [Moles /volume] in Central venous bloodOrdered By: Waleska Phillips on 12-03-2024 CO2 [Moles/Vol] 23.4 mmol/L 21.0-32.0 [facility] Chloride assayOrdered By: Nida Phillips on 12-03-2024 Chloride [Moles/Vol] 94 mmol/L Low 98-108 [facility] Discharge Instructionon 08-0 Discharge Instruction Normal [facility] Erythrocyte distribution wid th ratioOrdered By: Waleska Phillips on 12-03-2024 Erythrocyte distribution width (RBC) [Ratio] 14.7 % High 11.6-14.6 [facility] Erythrocyte distribution wid th standard deviationOrdered By: Waleska Phillips on 12-03-2024 Erythrocyte distribution width (RBC) [Ratio] 47.8 fl High 35.1-43.9 [facility] Glomerular filtration rate ( GFR) estimation/1.73 sq m using serum, plasma, or whole bOrdered By: Waleska Phillips on 12-03-2024 GFR/1.73 sq M.predicted among non-blacks MDRD (S/P/Bld) [Vol rate/Area] 55 mL/min/{1.73_m2} Low >60 [facility] Comment on above: mL/min/1.73m2 CKD-EP I Creatinine Equation (2020) Hematocrit Auto (Bld) [Volum e fraction]Ordered By: Waleska Phillips on 12-03-2024 Hematocrit (Bld) [Volume fraction] 31.2 % Low 37-47 [facility] Hemoglobin measurementOrdere d By: Waleska Phillips on 12-03-2024 Hemoglobin (Bld) [Mass/Vol] 10.6 g/dL Low 12.0-15.0 [facility] MCV (mean corpuscular volume ) determinationOrdered By: Waleska Phillips on 12-03-2024 MCV (RBC) [Entitic vol] 89.4 fL 81-99 [facility] Mean corpuscular hemoglobin (MCH) determinationOrdered By: Waleska Phillips on 12-03-2024 MCH (RBC) [Entitic mass] 30.4 pg 27.0-32.0 [facility] Mean corpuscular hemoglobin concentration (MCHC) determinationOrdered By: Waleska Phillips on 12-03-2024 MCHC (RBC) [Mass/Vol] 34.0 g/dL 32-36 [facility] Mean platelet volume determi nationOrdered By: Waleska Phillips on 12-03-2024 Platelet mean volume (Bld) [Entitic vol] 10.3 fL 6.2-12.0 [facility] Platelet countOrdered By: Nida Phillips on 12-03-2024 Platelets (Bld) [#/Vol] 202 10*3/uL 150-450 [facility] Potassium measurement (mass/ volume)Ordered By: Waleska Phillips on 12-03-2024 Potassium (Unsp spec) [Mass/Vol] 4.7 mmol/L 3.3-5.1 [facility] RBC Auto (Bld) [#/Vol]Ordere d By: Waleska Phillips on 12-03-2024 RBC (Bld) [#/Vol] 3.49 10*6/uL Low 4.2-5.4 [facility] Serum creatinine measurement (mass/volume)Ordered By: Waleska Phillips on 12-03-2024 Creatinine [Mass/Vol] 1.02 mg/dL 0.70-1.20 [facility] Serum glucose measurement (m ass/volume)Ordered By: Waleska Phillips on 12-03-2024 Glucose [Mass/Vol] 111 mg/dL High 70-99 [facility] Serum or plasma calcium julee urement (mass/volume)Ordered By: Waleska Phillips on 12-03-2024 Calcium [Mass/Vol] 8.7 mg/dL 7.6-11.0 [facility] Serum or plasma urea nitroge n measurement (mass/volume)Ordered By: Waleska Phillips on 12-03-2024 Urea nitrogen [Mass/Vol] 31 mg/dL High 4-19 [facility] Sodium levelOrdered By: Andi Phillips on 12-03-2024 Sodium [Moles/Vol] 127 mmol/L Low 133-145 [facility] White blood cell (WBC) count Ordered By: Waleska Phillips on 12-03-2024 WBC (Bld) [#/Vol] 9.8 10*3/uL 4.4-11.0 [facility] Absolute lymphocyte countOrd ered By: Waleska Phillips on 12-02-2024 Lymphocytes Auto (Unsp spec) [#/Vol] 1.09 10*3/uL 0.83-4.51 [facility] Absolute neutrophil countOrd ered By: Waleska Phillips on 12-02-2024 Neutrophils (Bld) [#/Vol] 7.1 10*3/uL 2.0-7.7 [facility] Automated lymphocyte count a s percentage of total leukocytesOrdered By: Waleska Phillips on 12-02-2024 Lymphocytes/100 WBC Auto (Unsp spec) 11.2 % Low 19-41 [facility] Basic Metabolic Profile (BMP )on 12-02-2024 BUN/CRE 30.6 RATIO High 10-20 [facility] Comment on above: Performed By: #### L 500.2500, L100.0100 ####[facility] [address] [place], [address] Calcium [Mass/Vol] 8.7 mg/dL Normal 7.6-11.0 [facility] Comment on above: Performed By: #### L 500.2500, L100.0100 ####[facility] [address] [place], [address] Chloride [Moles/Vol] 96 mmol/L Low 98-108 [facility] Comment on above: Performed By: #### L 500.2500, L100.0100 ####[facility] [address] [place], [address] CO2 [Moles/Vol] 23.4 mmol/L Normal 21.0-32.0 [facility] Comment on above: Performed By: #### L 500.2500, L100.0100 ####[facility] [address] [place], [address] Creatinine [Mass/Vol] 1.01 mg/dL Normal 0.70-1.20 [facility] Comment on above: Performed By: #### L 500.2500, L100.0100 ####[facility] [address] [place], [address] ECRCL 51.70 ml/min Normal 50-250 [facility] Comment on above: Performed By: #### L 500.2500, L100.0100 ####[facility] [address] [place], [address] GAP 10 Normal 5-15 [facility] Comment on above: Performed By: #### L 500.2500, L100.0100 ####[facility] [address] [place], [address] GFR/1.73 sq M.predicted among non-blacks MDRD (S/P/Bld) [Vol rate/Area] 55 mL/min/{1.73_m2} Low >60 [facility] Comment on above: Result Comment: mL/m in/1.73m2 CKD-EPI Creatinine Equation (2020) Performed By: #### L 500.2500, L100.0100 ####[facility] [address] [place], [address] Glucose [Mass/Vol] 106 mg/dL High 70-99 [facility] Comment on above: Performed By: #### L 500.2500, L100.0100 ####[facility] [address] [place], [address] Potassium [Moles/Vol] 4.7 mmol/L Normal 3.3-5.1 [facility] Comment on above: Performed By: #### L 500.2500, L100.0100 ####[facility] [address] [place], [address] Sodium [Moles/Vol] 130 mmol/L Low 133-145 [facility] Comment on above: Performed By: #### L 500.2500, L100.0100 ####[facility] [address] [place], [address] Urea nitrogen [Mass/Vol] 31 mg/dL High 4-19 [facility] Comment on above: Performed By: #### L 500.2500, L100.0100 ####[facility] [address] [place], [address] Basophil percentageOrdered B y: Waleskachandan Phillips on 12-02-2024 Basophils/100 WBC (Bld) 0.6 % 0-1 [facility] CBC W/Diff, Automatedon Absolute Lymph 1.09 X10 3/uL Normal 0.83-4.51 [facility] Comment on above: Performed By: #### L 500.2500, L100.0100 ####[facility] [address] [place], [address] Absolute Neut 7.1 X10 3/uL Normal 2.0-7.7 [facility] Comment on above: Performed By: #### L 500.2500, L100.0100 ####[facility] [address] [place], [address] Basophils/100 WBC (Bld) 0.6 % Normal 0-1 [facility] Comment on above: Performed By: #### L 500.2500, L100.0100 ####[facility] [address] [place], [address] Eosinophils/100 WBC (Bld) 3.1 % Normal 0-5 [facility] Comment on above: Performed By: #### L 500.2500, L100.0100 ####[facility] [address] [place], [address] Erythrocyte distribution width (RBC) [Ratio] 14.7 % High 11.6-14.6 [facility] Comment on above: Performed By: #### L 500.2500, L100.0100 ####[facility] [address] [place], [address] Hematocrit (Bld) [Volume fraction] 31.5 % Low 37-47 [facility] Comment on above: Performed By: #### L 500.2500, L100.0100 ####[facility] [address] [place], [address] Hemoglobin (Bld) [Mass/Vol] 10.4 g/dL Low 12.0-15.0 [facility] Comment on above: Performed By: #### L 500.2500, L100.0100 ####[facility] [address] [place], [address] IG% 0.700 Normal 0.0-0.9 [facility] Comment on above: Result Comment: IG% - Immature Granulocytes (promyelocytes, myelocytes andmetamyelocytes) > 1% indicates that a LEFT SHIFT is Present. Performed By: #### L 500.2500, L100.0100 ####[facility] [address] [place], [address] Lymphocytes/100 WBC (Bld) 11.2 % Low 19-41 [facility] Comment on above: Performed By: #### L 500.2500, L100.0100 ####[facility] [address] [place], [address] MCH (RBC) [Entitic mass] 29.9 pg Normal 27.0-32.0 [facility] Comment on above: Performed By: #### L 500.2500, L100.0100 ####[facility] [address] [place], [address] MCHC (RBC) [Mass/Vol] 33.0 g/dL Normal 32-36 [facility] Comment on above: Performed By: #### L 500.2500, L100.0100 ####[facility] [address] [place], [address] MCV (RBC) [Entitic vol] 90.5 fL Normal 81-99 [facility] Comment on above: Performed By: #### L 500.2500, L100.0100 ####[facility] [address] [place], [address] Monocytes/100 WBC (Bld) 11.7 % High 0-10 [facility] Comment on above: Performed By: #### L 500.2500, L100.0100 ####[facility] [address] [place], [address] Neutrophils/100 WBC (Bld) 72.7 % High 47-70 [facility] Comment on above: Performed By: #### L 500.2500, L100.0100 ####[facility] [address] [place], [address] Nucleated RBC (Bld) [#/Vol] 0 10*3/uL Normal 0-5 [facility] Comment on above: Performed By: #### L 500.2500, L100.0100 ####[facility] [address] [place], [address] Platelet mean volume (Bld) [Entitic vol] 10.3 fL Normal 6.2-12.0 [facility] Comment on above: Performed By: #### L 500.2500, L100.0100 ####[facility] [address] [place], [address] Platelets (Bld) [#/Vol] 193 10*3/uL Normal 150-450 [facility] Comment on above: Performed By: #### L 500.2500, L100.0100 ####[facility] [address] [place], [address] RBC (Bld) [#/Vol] 3.48 10*6/uL Low 4.2-5.4 [facility] Comment on above: Performed By: #### L 500.2500, L100.0100 ####[facility] [address] [place], [address] RDW SD 49.0 fl High 35.1-43.9 [facility] Comment on above: Performed By: #### L 500.2500, L100.0100 ####[facility] [address] [place], [address] WBC (Bld) [#/Vol] 9.7 10*3/uL Normal 4.4-11.0 [facility] Comment on above: Performed By: #### L 500.2500, L100.0100 ####[facility] [address] [place], [address] Eosinophil percentageOrdered By: Waleska Phillips on 12-02-2024 Eosinophils/100 WBC (Bld) 3.1 % 0-5 [facility] Immature granulocytes/100 WB C Auto (Bld)Ordered By: Waleska Phillips on 12-02-2024 Immature granulocytes/100 WBC (Bld) 0.700 % 0.0-0.9 [facility] Comment on above: IG% - Immature Granu locytes (promyelocytes, myelocytes and metamyelocytes) > 1% indicates that a LEFT SHIFT is Present. Monocyte percentageOrdered B y: Waleska Phillips on 12-02-2024 Monocytes/100 WBC (Bld) 11.7 % High 0-10 [facility] Neutrophil percentageOrdered By: Waleska Phillips on 12-02-2024 Neutrophils/100 WBC (Bld) 72.7 % High 47-70 [facility] Nucleated red blood cell per centageOrdered By: Waleska Phillips on 12-02-2024 Nucleated RBC/100 WBC (Bld) [Ratio] 0 % 0-5 [facility] Basic Metabolic Profile (BMP )on 12-01-2024 BUN/CRE 26.4 RATIO High 10-20 [facility] Comment on above: Performed By: #### L 100.0100, L500.2500 ####[facility] [address] [place], [address] Calcium [Mass/Vol] 8.4 mg/dL Normal 7.6-11.0 [facility] Comment on above: Performed By: #### L 100.0100, L500.2500 ####[facility] [address] [place], [address] Chloride [Moles/Vol] 96 mmol/L Low 98-108 [facility] Comment on above: Performed By: #### L 100.0100, L500.2500 ####[facility] [address] [place], [address] CO2 [Moles/Vol] 26.3 mmol/L Normal 21.0-32.0 [facility] Comment on above: Performed By: #### L 100.0100, L500.2500 ####[facility] [address] [place], [address] Creatinine [Mass/Vol] 1.23 mg/dL High 0.70-1.20 [facility] Comment on above: Performed By: #### L 100.0100, L500.2500 ####[facility] [address] [place], [address] ECRCL 41.95 ml/min Low 50-250 [facility] Comment on above: Performed By: #### L 100.0100, L500.2500 ####[facility] [address] [place], [address] GAP 9 Normal 5-15 [facility] Comment on above: Performed By: #### L 100.0100, L500.2500 ####[facility] [address] [place], [address] GFR/1.73 sq M.predicted among non-blacks MDRD (S/P/Bld) [Vol rate/Area] 44 mL/min/{1.73_m2} Low >60 [facility] Comment on above: Result Comment: mL/m in/1.73m2 CKD-EPI Creatinine Equation (2020) Performed By: #### L 100.0100, L500.2500 ####[facility] [address] [place], [address] Glucose [Mass/Vol] 110 mg/dL High 70-99 [facility] Comment on above: Performed By: #### L 100.0100, L500.2500 ####[facility] [address] [place], [address] Potassium [Moles/Vol] 4.7 mmol/L Normal 3.3-5.1 [facility] Comment on above: Performed By: #### L 100.0100, L500.2500 ####[facility] [address] [place], [address] Sodium [Moles/Vol] 131 mmol/L Low 133-145 [facility] Comment on above: Performed By: #### L 100.0100, L500.2500 ####[facility] [address] [place], [address] Urea nitrogen [Mass/Vol] 33 mg/dL High 4-19 [facility] Comment on above: Performed By: #### L 100.0100, L500.2500 ####[facility] [address] [place], [address] CBC W/Diff, Automatedon 08-0 Absolute Lymph 1.16 X10 3/uL Normal 0.83-4.51 [facility] Comment on above: Performed By: #### L 100.0100, L500.2500 ####[facility] [address] [place], [address] Absolute Neut 6.3 X10 3/uL Normal 2.0-7.7 [facility] Comment on above: Performed By: #### L 100.0100, L500.2500 ####[facility] [address] [place], [address] Basophils/100 WBC (Bld) 0.6 % Normal 0-1 [facility] Comment on above: Performed By: #### L 100.0100, L500.2500 ####[facility] [address] [place], [address] Eosinophils/100 WBC (Bld) 2.9 % Normal 0-5 [facility] Comment on above: Performed By: #### L 100.0100, L500.2500 ####[facility] [address] [place], [address] Erythrocyte distribution width (RBC) [Ratio] 14.8 % High 11.6-14.6 [facility] Comment on above: Performed By: #### L 100.0100, L500.2500 ####[facility] [address] [place], [address] Hematocrit (Bld) [Volume fraction] 31.7 % Low 37-47 [facility] Comment on above: Performed By: #### L 100.0100, L500.2500 ####[facility] [address] [place], [address] Hemoglobin (Bld) [Mass/Vol] 10.5 g/dL Low 12.0-15.0 [facility] Comment on above: Performed By: #### L 100.0100, L500.2500 ####[facility] [address] [place], [address] IG% 0.300 Normal 0.0-0.9 [facility] Comment on above: Result Comment: IG% - Immature Granulocytes (promyelocytes, myelocytes andmetamyelocytes) > 1% indicates that a LEFT SHIFT is Present. Performed By: #### L 100.0100, L500.2500 ####[facility] [address] [place], [address] Lymphocytes/100 WBC (Bld) 13.0 % Low 19-41 [facility] Comment on above: Performed By: #### L 100.0100, L500.2500 ####[facility] [address] [place], [address] MCH (RBC) [Entitic mass] 29.9 pg Normal 27.0-32.0 [facility] Comment on above: Performed By: #### L 100.0100, L500.2500 ####[facility] [address] [place], [address] MCHC (RBC) [Mass/Vol] 33.1 g/dL Normal 32-36 [facility] Comment on above: Performed By: #### L 100.0100, L500.2500 ####[facility] [address] [place], [address] MCV (RBC) [Entitic vol] 90.3 fL Normal 81-99 [facility] Comment on above: Performed By: #### L 100.0100, L500.2500 ####[facility] [address] [place], [address] Monocytes/100 WBC (Bld) 12.3 % High 0-10 [facility] Comment on above: Performed By: #### L 100.0100, L500.2500 ####[facility] [address] [place], [address] Neutrophils/100 WBC (Bld) 70.9 % High 47-70 [facility] Comment on above: Performed By: #### L 100.0100, L500.2500 ####[facility] [address] [place], [address] Nucleated RBC (Bld) [#/Vol] 0 10*3/uL Normal 0-5 [facility] Comment on above: Performed By: #### L 100.0100, L500.2500 ####[facility] [address] [place], [address] Platelet mean volume (Bld) [Entitic vol] 10.1 fL Normal 6.2-12.0 [facility] Comment on above: Performed By: #### L 100.0100, L500.2500 ####[facility] [address] [place], [address] Platelets (Bld) [#/Vol] 196 10*3/uL Normal 150-450 [facility] Comment on above: Performed By: #### L 100.0100, L500.2500 ####[facility] [address] [place], [address] RBC (Bld) [#/Vol] 3.51 10*6/uL Low 4.2-5.4 [facility] Comment on above: Performed By: #### L 100.0100, L500.2500 ####[facility] [address] [place], [address] RDW SD 48.8 fl High 35.1-43.9 [facility] Comment on above: Performed By: #### L 100.0100, L500.2500 ####[facility] [address] [place], [address] WBC (Bld) [#/Vol] 8.9 10*3/uL Normal 4.4-11.0 [facility] Comment on above: Performed By: #### L 100.0100, L500.2500 ####[facility] [address] [place], [address] MR/CON.PCM.NEon 12-01-2024 MR/CON.PCM.NE Normal [facility] Amphetamine detection with 1 000 ng/mL as cutoffOrdered By: Tacho Goncalves on 11-30-2024 Amphetamines Screen method >1000 ng/mL Ql (U) Negative < 200 ng/mL [facility] Bilirubin, totalOrdered By: Tacho Goncalves on 11-30-2024 Bilirubin [Mass/Vol] 0.50 mg/dL 0.00-1.30 [facility] Brain/Head without Contrasto n 11-30-2024 Brain/Head without Contrast Normal [facility] CBC W/Diff, Automatedon 07- Absolute Lymph 0.89 X10 3/uL Normal 0.83-4.51 [facility] Comment on above: Performed By: #### L 500.4100, L501.2300, L100.0100, L500.4050 ####[facility] [address] [place], [address] Absolute Neut 6.9 X10 3/uL Normal 2.0-7.7 [facility] Comment on above: Performed By: #### L 500.4100, L501.2300, L100.0100, L500.4050 ####[facility] [address] [place], [address] Basophils/100 WBC (Bld) 0.5 % Normal 0-1 [facility] Comment on above: Performed By: #### L 500.4100, L501.2300, L100.0100, L500.4050 ####[facility] [address] [place], [address] Eosinophils/100 WBC (Bld) 2.8 % Normal 0-5 [facility] Comment on above: Performed By: #### L 500.4100, L501.2300, L100.0100, L500.4050 ####[facility] [address] [place], [address] Erythrocyte distribution width (RBC) [Ratio] 14.6 % Normal 11.6-14.6 [facility] Comment on above: Performed By: #### L 500.4100, L501.2300, L100.0100, L500.4050 ####[facility] [address] [place], [address] Hematocrit (Bld) [Volume fraction] 33.8 % Low 37-47 [facility] Comment on above: Performed By: #### L 500.4100, L501.2300, L100.0100, L500.4050 ####[facility] [address] [place], [address] Hemoglobin (Bld) [Mass/Vol] 11.2 g/dL Low 12.0-15.0 [facility] Comment on above: Performed By: #### L 500.4100, L501.2300, L100.0100, L500.4050 ####[facility] [address] [place], [address] IG% 0.700 Normal 0.0-0.9 [facility] Comment on above: Result Comment: IG% - Immature Granulocytes (promyelocytes, myelocytes andmetamyelocytes) > 1% indicates that a LEFT SHIFT is Present. Performed By: #### L 500.4100, L501.2300, L100.0100, L500.4050 ####[facility] [address] [place], [address] Lymphocytes/100 WBC (Bld) 9.5 % Low 19-41 [facility] Comment on above: Performed By: #### L 500.4100, L501.2300, L100.0100, L500.4050 ####[facility] [address] [place], [address] MCH (RBC) [Entitic mass] 30.1 pg Normal 27.0-32.0 [facility] Comment on above: Performed By: #### L 500.4100, L501.2300, L100.0100, L500.4050 ####[facility] [address] [place], [address] MCHC (RBC) [Mass/Vol] 33.1 g/dL Normal 32-36 [facility] Comment on above: Performed By: #### L 500.4100, L501.2300, L100.0100, L500.4050 ####[facility] [address] [place], [address] MCV (RBC) [Entitic vol] 90.9 fL Normal 81-99 [facility] Comment on above: Performed By: #### L 500.4100, L501.2300, L100.0100, L500.4050 ####[facility] [address] [place], [address] Monocytes/100 WBC (Bld) 13.0 % High 0-10 [facility] Comment on above: Performed By: #### L 500.4100, L501.2300, L100.0100, L500.4050 ####[facility] [address] [place], [address] Neutrophils/100 WBC (Bld) 73.5 % High 47-70 [facility] Comment on above: Performed By: #### L 500.4100, L501.2300, L100.0100, L500.4050 ####[facility] [address] [place], [address] Nucleated RBC (Bld) [#/Vol] 0 10*3/uL Normal 0-5 [facility] Comment on above: Performed By: #### L 500.4100, L501.2300, L100.0100, L500.4050 ####[facility] [address] [place], [address] Platelet mean volume (Bld) [Entitic vol] 9.7 fL Normal 6.2-12.0 [facility] Comment on above: Performed By: #### L 500.4100, L501.2300, L100.0100, L500.4050 ####[facility] [address] [place], [address] Platelets (Bld) [#/Vol] 212 10*3/uL Normal 150-450 [facility] Comment on above: Performed By: #### L 500.4100, L501.2300, L100.0100, L500.4050 ####[facility] [address] [place], [address] RBC (Bld) [#/Vol] 3.72 10*6/uL Low 4.2-5.4 [facility] Comment on above: Performed By: #### L 500.4100, L501.2300, L100.0100, L500.4050 ####[facility] [address] [place], [address] RDW SD 48.4 fl High 35.1-43.9 [facility] Comment on above: Performed By: #### L 500.4100, L501.2300, L100.0100, L500.4050 ####[facility] [address] [place], [address] WBC (Bld) [#/Vol] 9.4 10*3/uL Normal 4.4-11.0 [facility] Comment on above: Performed By: #### L 500.4100, L501.2300, L100.0100, L500.4050 ####[facility] [address] [place], [address] Calculated very low density lipoprotein (VLDL) cholesterol measurementOrdered By: Tacho Goncalves on 11-30-2024 Calculated very low density lipoprotein (VLDL) cholesterol measurement 18 mg/dL 5-40 [facility] Comprehensive Metabolic Prof ilon 11-30-2024 Albumin [Mass/Vol] 3.6 g/dL Normal 3.4-4.8 [facility] Comment on above: Performed By: #### L 500.4100, L501.2300, L100.0100, L500.4050 ####[facility] [address] [place], [address] Albumin/Globulin [Mass ratio] 1.6 {ratio} Normal 0.9-2.4 [facility] Comment on above: Performed By: #### L 500.4100, L501.2300, L100.0100, L500.4050 ####[facility] [address] [place], [address] ALK PHOS 58 U/L Normal 35-104 [facility] Comment on above: Performed By: #### L 500.4100, L501.2300, L100.0100, L500.4050 ####[facility] [address] [place], [address] ALT [Catalytic activity/Vol] 36 U/L High <=34 [facility] Comment on above: Performed By: #### L 500.4100, L501.2300, L100.0100, L500.4050 ####[facility] [address] [place], [address] AST [Catalytic activity/Vol] 25 U/L Normal <=31 [facility] Comment on above: Performed By: #### L 500.4100, L501.2300, L100.0100, L500.4050 ####[facility] [address] [place], [address] Bilirubin [Mass/Vol] 0.50 mg/dL Normal 0.00-1.30 [facility] Comment on above: Performed By: #### L 500.4100, L501.2300, L100.0100, L500.4050 ####[facility] [address] [place], [address] BUN/CRE 27.8 RATIO High 10-20 [facility] Comment on above: Performed By: #### L 500.4100, L501.2300, L100.0100, L500.4050 ####[facility] [address] [place], [address] Calcium [Mass/Vol] 8.9 mg/dL Normal 7.6-11.0 [facility] Comment on above: Performed By: #### L 500.4100, L501.2300, L100.0100, L500.4050 ####[facility] [address] [place], [address] Chloride [Moles/Vol] 99 mmol/L Normal 98-108 [facility] Comment on above: Performed By: #### L 500.4100, L501.2300, L100.0100, L500.4050 ####[facility] [address] [place], [address] CO2 [Moles/Vol] 26.1 mmol/L Normal 21.0-32.0 [facility] Comment on above: Performed By: #### L 500.4100, L501.2300, L100.0100, L500.4050 ####[facility] [address] [place], [address] Creatinine [Mass/Vol] 1.25 mg/dL High 0.70-1.20 [facility] Comment on above: Performed By: #### L 500.4100, L501.2300, L100.0100, L500.4050 ####[facility] [address] [place], [address] ECRCL 41.49 ml/min Low 50-250 [facility] Comment on above: Performed By: #### L 500.4100, L501.2300, L100.0100, L500.4050 ####[facility] [address] [place], [address] GAP 10 Normal 5-15 [facility] Comment on above: Performed By: #### L 500.4100, L501.2300, L100.0100, L500.4050 ####[facility] [address] [place], [address] GFR/1.73 sq M.predicted among non-blacks MDRD (S/P/Bld) [Vol rate/Area] 43 mL/min/{1.73_m2} Low >60 [facility] Comment on above: Result Comment: mL/m in/1.73m2 CKD-EPI Creatinine Equation (2020) Performed By: #### L 500.4100, L501.2300, L100.0100, L500.4050 ####[facility] [address] [place], [address] Globulin (S) [Mass/Vol] 2.3 g/dL Normal 2.2-4.2 [facility] Comment on above: Performed By: #### L 500.4100, L501.2300, L100.0100, L500.4050 ####[facility] [address] [place], [address] Glucose [Mass/Vol] 111 mg/dL High 70-99 [facility] Comment on above: Performed By: #### L 500.4100, L501.2300, L100.0100, L500.4050 ####[facility] [address] [place], [address] Potassium [Moles/Vol] 4.7 mmol/L Normal 3.3-5.1 [facility] Comment on above: Performed By: #### L 500.4100, L501.2300, L100.0100, L500.4050 ####[facility] [address] [place], [address] Sodium [Moles/Vol] 136 mmol/L Normal 133-145 [facility] Comment on above: Performed By: #### L 500.4100, L501.2300, L100.0100, L500.4050 ####[facility] [address] [place], [address] T PROT 5.9 g/dL Normal 5.9-8.4 [facility] Comment on above: Performed By: #### L 500.4100, L501.2300, L100.0100, L500.4050 ####[facility] [address] [place], [address] Urea nitrogen [Mass/Vol] 35 mg/dL High 4-19 [facility] Comment on above: Performed By: #### L 500.4100, L501.2300, L100.0100, L500.4050 ####[facility] [address] [place], [address] Echocardiogram study reportO rdered By: Gallo Hickey on 11-30-2024 Study report [facility] [address] [place] [address] Echo Complete 11/30/24 1044 MR#: [id number] Acct: [id number] Name: MICHAEL MEIER Rep #:[id number] 5 : 1940 84 From: Gallo Souza [...] Dr. Jonny Vicente MD ~ Date Dictated: 11/30/241043 Date Transcribed: 11/30/241654 Behavior Support Specialist: Signed [facility] Work Phone: Folate [Mass/volume] in Seru m or PlasmaOrdered By: Tacho Goncalves on 11-30-2024 Folate [Mass/Vol] 26.00 ng/mL 4.60-34.80 [facility] Folates,Serum (Folic Acid)on 11-30-2024 FOLATES,SERUM 26.00 ng/mL Normal 4.60-34.80 [facility] Comment on above: Order Comment: N Performed By: #### L 506.0200 ####[facility] [address] [place], [address] LDL calc ser/plasOrdered By: Tacho Goncalves on 11-30-2024 Cholesterol in LDL [Mass/Vol] 53 mg/dL [facility] Comment on above: Xfjyrkupjm=249-247 m g/dL & Higher Yvuc=170 mg/dL or greaterFriedwald Equation for LDL-C Laboratory - Chemistry and C hemistry - challengeOrdered By: Tacho Goncalves on 11-30-2024 AST [Catalytic activity/Vol] 25 U/L <32 [facility] Lipid Profileon 11-30-2024 CHOL:HDL 1.91 Normal [facility] Comment on above: Performed By: #### L 500.4100, L501.2300, L100.0100, L500.4050 ####[facility] [address] [place], [address] Cholesterol [Mass/Vol] 148 mg/dL Normal <=200 [facility] Comment on above: Result Comment: Chol esterol level, Desirable <200 mg/dLBorderline high cholesterol 200-239 mg/dLHigh cholesterol >=240 mg/dLRecommendations of the NCEP Adult Treatment Panel for thefollowing risk-cutoff thresholds for the [place] Americanpulation. Performed By: #### L 500.4100, L501.2300, L100.0100, L500.4050 ####[facility] [address] [place], [address] Cholesterol in HDL [Mass/Vol] 78 mg/dL Normal [facility] Comment on above: Result Comment: Nathalie onal Cholesterol Education Program (NCEP) guidelines:<40 mg/dL: Low HDL-cholesterol (major risk factor for CHD)>= 60 mg/dL: High HDL-cholesterol (negative risk factor forCHD)HDL-cholesterol is affected by a number of factors, e.g.smoking, exercise, hormones, sex and age. Performed By: #### L 500.4100, L501.2300, L100.0100, L500.4050 ####[facility] [address] [place], [address] Cholesterol in LDL [Mass/Vol] 53 mg/dL Normal [facility] Comment on above: Result Comment: Bord ftrgkp=742-655 mg/dL Higher Zymu=859 mg/dL or greaterFriedwald Equation for LDL-C Performed By: #### L 500.4100, L501.2300, L100.0100, L500.4050 ####[facility] [address] [place], [address] Cholesterol in VLDL [Mass/Vol] 18 mg/dL Normal 5-40 [facility] Comment on above: Performed By: #### L 500.4100, L501.2300, L100.0100, L500.4050 ####[facility] [address] [place], [address] Triglyceride [Mass/Vol] 88 mg/dL Normal [facility] Comment on above: Result Comment: The drugs N-Acetylcysteine and Metamizole may falselydepress this assay.Normal range: <150 mg/dLBorderline High: 150-199 mg/dLHigh: 200-499 mg/dLVery High: >500 mg/dL Performed By: #### L 500.4100, L501.2300, L100.0100, L500.4050 ####[facility] [address] [place], [address] No Panel InformationOrdered By: Tacho Goncalves on 11-30-2024 Urine Buprenorphine Qualitative Negative < 200 ng/mL [facility] Urine Oxycodone Screen Negative < 100 ng/mL [facility] Phosphoruson 11-30-2024 Phosphate [Mass/Vol] 3.8 mg/dL Normal 2.7-4.5 [facility] Comment on above: Performed By: #### L 500.4100, L501.2300, L100.0100, L500.4050 ####[facility] [address] [place], [address] Quantitative urine opiates m easurementOrdered By: Tacho Goncalves on 11-30-2024 Opiates Ql (U) Negative < 300 ng/mL [facility] Screening total cholesterol/ high density lipoprotein (HDL) cholesterol ratioOrdered By: Tacho Goncalves on 11-30-2024 Cholesterol.total/Kathy sterol in HDL [Mass ratio] 1.91 {ratio} [facility] Screening urine fentanyl theresa surementOrdered By: Tacho Goncalves on 11-30-2024 fentaNYL Screen Ql (U) Negative [facility] Serum globulin measurementOr dered By: Tacho Goncalves on 11-30-2024 Globulin (S) [Mass/Vol] 2.3 g/dL 2.2-4.2 [facility] Serum or plasma alanine sprague otransferase (ALT) measurementOrdered By: Tacho Goncalves on 11-30-2024 ALT [Catalytic activity/Vol] 36 U/L High <35 [facility] Serum or plasma albumin julee urement (mass/volume)Ordered By: Tacho Goncalves on 11-30-2024 Albumin [Mass/Vol] 3.6 g/dL 3.4-4.8 [facility] Serum or plasma albumin/glob ulin mass ratioOrdered By: Tacho Goncalves on 11-30-2024 Albumin/Globulin [Mass ratio] 1.6 {ratio} 0.9-2.4 [facility] Serum or plasma alkaline rachel sphatase measurementOrdered By: Tacho Goncalves on 11-30-2024 ALP [Catalytic activity/Vol] 58 U/L 35-104 [facility] Serum or plasma cholesterol in HDL measurement (mass/volume)Ordered By: Tacho Goncalves on 11-30-2024 Cholesterol in HDL [Mass/Vol] 78 mg/dL >40 [facility] Comment on above: National Cholesterol Education Program (NCEP) guidelines:<40 mg/dL: Low HDL-cholesterol (major risk factor for CHD)>= 60 mg/dL: High HDL-cholesterol (negative risk factor for CHD)HDL-cholesterol is affected by a number of factors, e.g. smoking, exercise, hormones, sex and age. Serum or plasma cholesterol measurement (mass/volume)Ordered By: Tacho Goncalves on 11-30-2024 Cholesterol [Mass/Vol] 148 mg/dL <201 [facility] Comment on above: Cholesterol level, D esirable <200 mg/dLBorderline high cholesterol 200-239 mg/dLHigh cholesterol >=240 mg/dLRecommendations of the NCEP Adult Treatment Panel for the following risk-cutoff thresholds for the [place] population. Total proteinOrdered By: Richard Goncalves on 11-30-2024 Protein [Mass/Vol] 5.9 g/dL 5.9-8.4 [facility] Triglycerides measurementOrd ered By: Tacho Goncalves on 11-30-2024 Triglyceride [Mass/Vol] 88 mg/dL <199 [facility] Comment on above: The drugs N-Acetylcy steine and Metamizole may falsely depress this assay. Normal range: <150 mg/dLBorderline High: 150-199 mg/dLHigh: 200-499 mg/dLVery High: >500 mg/dL Urine Drug Screen ([facility]IST[facility])on 11-30-2024 AMPHETAMINES Negative Normal <1000 ng/mL [facility] Comment on above: Order Comment: NEEDI NG A SAMPLE. [facility] 11-30-24UNK Performed By: #### L 501.9100, L501.9978, L501.9520, L501.5200, L505.5000 ####[facility] [address] [place], [address] BARBITIURATES Negative Normal < 200 ng/mL [facility] Comment on above: Order Comment: NEEDI NG A SAMPLE. [facility] 11-30-24UNK Performed By: #### L 501.9100, L501.9985, L501.9520, L501.5200, L505.5000 ####[facility] [address] [place], [address] BENZODIAZIPINE Positive Normal < 200 ng/mL [facility] Comment on above: Order Comment: NEEDI NG A SAMPLE. B 11-30-24 Result Comment: If c onfirmation testing is needed, a separate order will berequired to send out testing to the reference laboratory. Performed By: #### L 501.9100, L501.9985, L501.9520, L501.5200, L505.5000 ####[facility] [address] [place], [address] BUP Ur Drug Scr Negative Normal < 200 ng/mL [facility] Comment on above: Order Comment: NEEDI NG A SAMPLE. [facility] 11-30-24UNK Performed By: #### L 501.9100, L501.9985, L501.9520, L501.5200, L505.5000 ####[facility] [address] [place], [address] COCAINE Negative Normal < 300 ng/mL [facility] Comment on above: Order Comment: NEEDI NG A SAMPLE. HEB 11-30-24UNK Performed By: #### L 501.9100, L501.9985, L501.9520, L501.5200, L505.5000 ####[facility] [address] [place], [address] Fentanyl Negative Normal [facility] Comment on above: Order Comment: NEEDI NG A SAMPLE. HEB 11-30-24UNK Performed By: #### L 501.9100, L501.9985, L501.9520, L501.5200, L505.5000 ####[facility] [address] [place], [address] METHADONE Negative Normal < 300 ng/mL [facility] Comment on above: Order Comment: NEEDI NG A SAMPLE. HEB 11-30-24UNK Performed By: #### L 501.9100, L501.9985, L501.9520, L501.5200, L505.5000 ####[facility] [address] [place], [address] OPIATES Negative Normal < 300 ng/mL [facility] Comment on above: Order Comment: NEEDI NG A SAMPLE. HEB 11-30-24UNK Performed By: #### L 501.9100, L501.9985, L501.9520, L501.5200, L505.5000 ####[facility] [address] [place], [address] OXYCODONE Negative Normal < 100 ng/mL [facility] Comment on above: Order Comment: NEEDI NG A SAMPLE. B 11-30-24UNK Performed By: #### L 501.9100, L501.9985, L501.9520, L501.5200, L505.5000 ####[facility] [address] [place], [address] PCP Negative Normal < 25 ng/mL [facility] Comment on above: Order Comment: NEEDI NG A SAMPLE. HEB 11-30-24UNK Performed By: #### L 501.9100, L501.9985, L501.9520, L501.5200, L505.5000 ####[facility] [address] [place], [address] THC Negative Normal < 50 ng/mL [facility] Comment on above: Order Comment: NEEDI NG A SAMPLE. HEB 11-30-24UNK Performed By: #### L 501.9100, L501.9985, L501.9520, L501.5200, L505.5000 ####[facility] [address] [place], [address] Urine benzodiazepine levelOr dered By: Tacho Goncalves on 11-30-2024 Benzodiazepines Ql (U) Positive < 200 ng/mL [facility] Comment on above: If confirmation test ing is needed, a separate order will be required to send out testing to the reference laboratory. Urine cocaine levelOrdered B y: Tacho Goncalves on 11-30-2024 Cocaine Ql (U) Negative < 300 ng/mL [facility] Urine tcbtt-6-kclohxjxgxlzgv abinol (THC) measurementOrdered By: Tacho Goncalves on 11-30-2024 Cannabinoids Screen Ql (U) Negative < 50 ng/mL [facility] Urine phencyclidine (PCP) de tectionOrdered By: Tacho Goncalves on 11-30-2024 Phencyclidine Ql (U) Negative < 25 ng/mL [facility] Vitamin B12on 11-30-2024 Cobalamin (Vitamin B12) [Mass/Vol] 2838 pg/mL High 180-914 [facility] Comment on above: Performed By: #### L 503.0106 ####[facility] [address] [place], [place], [id number] Absolute lymphocyte countOrd ered By: Virgil Tyler on 11-29-2024 Lymphocytes Auto (Unsp spec) [#/Vol] 1.10 10*3/uL 0.83-4.51 [facility] Absolute neutrophil countOrd ered By: Virgil Tyler on 11-29-2024 Neutrophils (Bld) [#/Vol] 7.0 10*3/uL 2.0-7.7 [facility] Alcohol, Blood (Medical)-Ser umon 11-29-2024 SERUM ETOH < 10.1 Normal <=10.0 [facility] Comment on above: Result Comment: This test is for medical purposes only. The legaldefinition of intoxication varies according to local law. Performed By: #### L 501.9100, L501.9985, L501.9520, L501.5200, L505.5000 ####[facility] [address] [place], [place], [id number] Anion gap in Serum or Plasma Ordered By: Virgil Tyler on 11-29-2024 Anion gap [Moles/Vol] 12 mmol/L 5-15 [facility] Automated lymphocyte count a s percentage of total leukocytesOrdered By: Virgil Wilkersontoño on 11-29-2024 Lymphocytes/100 WBC Auto (Unsp spec) 11.5 % Low 19-41 [facility] BUN/creatinine ratioOrdered By: Virgil Rocktoño on 11-29-2024 Urea nitrogen/Creatinine [Mass ratio] 34.3 mg/mg High 10-20 [facility] Basophil percentageOrdered B y: Virgil Wilkersontoño on 11-29-2024 Basophils/100 WBC (Bld) 0.6 % 0-1 [facility] Bilirubin Test strip Ql (U)O rdered By: Virgil Wilkersontoño on 11-29-2024 Bilirubin Ql (U) Negative Negative [facility] Bilirubin, totalOrdered By: Virgilbarb Tyler on 11-29-2024 Bilirubin [Mass/Vol] 0.57 mg/dL 0.00-1.30 [facility] Brain/Head without Contrasto n 11-29-2024 Brain/Head without Contrast Normal [facility] CBC W/Diff, Automatedon 11-02 0-2024 Absolute Lymph 1.10 X10 3/uL Normal 0.83-4.51 [facility] Comment on above: Performed By: #### L 501.2450, L100.0100, L500.4050, L501.9520 ####[facility] [address] [place], [address] Absolute Neut 7.0 X10 3/uL Normal 2.0-7.7 [facility] Comment on above: Performed By: #### L 501.2450, L100.0100, L500.4050, L501.9520 ####[facility] [address] [place], [address] Basophils/100 WBC (Bld) 0.6 % Normal 0-1 [facility] Comment on above: Performed By: #### L 501.2450, L100.0100, L500.4050, L501.9520 ####[facility] [address] [place], [address] Eosinophils/100 WBC (Bld) 2.9 % Normal 0-5 [facility] Comment on above: Performed By: #### L 501.2450, L100.0100, L500.4050, L501.9520 ####[facility] [address] [place], [address] Erythrocyte distribution width (RBC) [Ratio] 14.4 % Normal 11.6-14.6 [facility] Comment on above: Performed By: #### L 501.2450, L100.0100, L500.4050, L501.9520 ####[facility] [address] [place], [address] Hematocrit (Bld) [Volume fraction] 34.5 % Low 37-47 [facility] Comment on above: Performed By: #### L 501.2450, L100.0100, L500.4050, L501.9520 ####[facility] [address] [place], [address] Hemoglobin (Bld) [Mass/Vol] 11.6 g/dL Low 12.0-15.0 [facility] Comment on above: Performed By: #### L 501.2450, L100.0100, L500.4050, L501.9520 ####[facility] [address] [place], [address] IG% 0.500 Normal 0.0-0.9 [facility] Comment on above: Result Comment: IG% - Immature Granulocytes (promyelocytes, myelocytes andmetamyelocytes) > 1% indicates that a LEFT SHIFT is Present. Performed By: #### L 501.2450, L100.0100, L500.4050, L501.9520 ####[facility] [address] [place], [address] Lymphocytes/100 WBC (Bld) 11.5 % Low 19-41 [facility] Comment on above: Performed By: #### L 501.2450, L100.0100, L500.4050, L501.9520 ####[facility] [address] [place], [address] MCH (RBC) [Entitic mass] 30.1 pg Normal 27.0-32.0 [facility] Comment on above: Performed By: #### L 501.2450, L100.0100, L500.4050, L501.9520 ####[facility] [address] [place], [address] MCHC (RBC) [Mass/Vol] 33.6 g/dL Normal 32-36 [facility] Comment on above: Performed By: #### L 501.2450, L100.0100, L500.4050, L501.9520 ####[facility] [address] [place], [address] MCV (RBC) [Entitic vol] 89.4 fL Normal 81-99 [facility] Comment on above: Performed By: #### L 501.2450, L100.0100, L500.4050, L501.9520 ####[facility] [address] [place], [address] Monocytes/100 WBC (Bld) 12.1 % High 0-10 [facility] Comment on above: Performed By: #### L 501.2450, L100.0100, L500.4050, L501.9520 ####[facility] [address] [place], [address] Neutrophils/100 WBC (Bld) 72.4 % High 47-70 [facility] Comment on above: Performed By: #### L 501.2450, L100.0100, L500.4050, L501.9520 ####[facility] [address] [place], [address] Nucleated RBC (Bld) [#/Vol] 0 10*3/uL Normal 0-5 [facility] Comment on above: Performed By: #### L 501.2450, L100.0100, L500.4050, L501.9520 ####[facility] [address] [place], [address] Platelet mean volume (Bld) [Entitic vol] 10.2 fL Normal 6.2-12.0 [facility] Comment on above: Performed By: #### L 501.2450, L100.0100, L500.4050, L501.9520 ####[facility] [address] [place], [address] Platelets (Bld) [#/Vol] 201 10*3/uL Normal 150-450 [facility] Comment on above: Performed By: #### L 501.2450, L100.0100, L500.4050, L501.9520 ####[facility] [address] [place], [address] RBC (Bld) [#/Vol] 3.86 10*6/uL Low 4.2-5.4 [facility] Comment on above: Performed By: #### L 501.2450, L100.0100, L500.4050, L501.9520 ####[facility] [address] [place], [address] RDW SD 46.8 fl High 35.1-43.9 [facility] Comment on above: Performed By: #### L 501.2450, L100.0100, L500.4050, L501.9520 ####[facility] [address] [place], [address] WBC (Bld) [#/Vol] 9.6 10*3/uL Normal 4.4-11.0 [facility] Comment on above: Performed By: #### L 501.2450, L100.0100, L500.4050, L501.9520 ####[facility] [address] [place], [address] Carbon dioxide, total [Moles /volume] in Central venous bloodOrdered By: Virgil Tyler on 11-29-2024 CO2 [Moles/Vol] 22.9 mmol/L 21.0-32.0 [facility] Chloride assayOrdered By: Rj Tyler on 11-29-2024 Chloride [Moles/Vol] 98 mmol/L 98-108 [facility] Comprehensive Metabolic Prof ilon 11-29-2024 Albumin [Mass/Vol] 4.0 g/dL Normal 3.4-4.8 [facility] Comment on above: Performed By: #### L 501.2450, L100.0100, L500.4050, L501.9520 ####[facility] [address] [place], [address] Albumin/Globulin [Mass ratio] 1.7 {ratio} Normal 0.9-2.4 [facility] Comment on above: Performed By: #### L 501.2450, L100.0100, L500.4050, L501.9520 ####[facility] [address] [place], [address] ALK PHOS 63 U/L Normal 35-104 [facility] Comment on above: Performed By: #### L 501.2450, L100.0100, L500.4050, L501.9520 ####[facility] [address] [place], [address] ALT [Catalytic activity/Vol] 37 U/L High <=34 [facility] Comment on above: Performed By: #### L 501.2450, L100.0100, L500.4050, L501.9520 ####[facility] [address] [place], [address] AST [Catalytic activity/Vol] 29 U/L Normal <=31 [facility] Comment on above: Performed By: #### L 501.2450, L100.0100, L500.4050, L501.9520 ####[facility] [address] [place], [address] Bilirubin [Mass/Vol] 0.57 mg/dL Normal 0.00-1.30 [facility] Comment on above: Performed By: #### L 501.2450, L100.0100, L500.4050, L501.9520 ####[facility] [address] [place], [address] BUN/CRE 34.3 RATIO High 10-20 [facility] Comment on above: Performed By: #### L 501.2450, L100.0100, L500.4050, L501.9520 ####[facility] [address] [place], [address] Calcium [Mass/Vol] 8.9 mg/dL Normal 7.6-11.0 [facility] Comment on above: Performed By: #### L 501.2450, L100.0100, L500.4050, L501.9520 ####[facility] [address] [place], [address] Chloride [Moles/Vol] 98 mmol/L Normal 98-108 [facility] Comment on above: Performed By: #### L 501.2450, L100.0100, L500.4050, L501.9520 ####[facility] [address] [place], [address] CO2 [Moles/Vol] 22.9 mmol/L Normal 21.0-32.0 [facility] Comment on above: Performed By: #### L 501.2450, L100.0100, L500.4050, L501.9520 ####[facility] [address] [place], [address] Creatinine [Mass/Vol] 1.11 mg/dL Normal 0.70-1.20 [facility] Comment on above: Performed By: #### L 501.2450, L100.0100, L500.4050, L501.9520 ####[facility] [address] [place], [address] ECRCL 48.43 ml/min Low 50-250 [facility] Comment on above: Performed By: #### L 501.2450, L100.0100, L500.4050, L501.9520 ####[facility] [address] [place], [address] GAP 12 Normal 5-15 [facility] Comment on above: Performed By: #### L 501.2450, L100.0100, L500.4050, L501.9520 ####[facility] [address] [place], [address] GFR/1.73 sq M.predicted among non-blacks MDRD (S/P/Bld) [Vol rate/Area] 49 mL/min/{1.73_m2} Low >60 [facility] Comment on above: Result Comment: mL/m in/1.73m2 CKD-EPI Creatinine Equation (2020) Performed By: #### L 501.2450, L100.0100, L500.4050, L501.9520 ####[facility] [address] [place], [address] Globulin (S) [Mass/Vol] 2.4 g/dL Normal 2.2-4.2 [facility] Comment on above: Performed By: #### L 501.2450, L100.0100, L500.4050, L501.9520 ####[facility] [address] [place], [address] Glucose [Mass/Vol] 94 mg/dL Normal 70-99 [facility] Comment on above: Performed By: #### L 501.2450, L100.0100, L500.4050, L501.9520 ####[facility] [address] [place], [address] Potassium [Moles/Vol] 5.0 mmol/L Normal 3.3-5.1 [facility] Comment on above: Result Comment: Hemo lysis present, Results??could be affected.?? Performed By: #### L 501.2450, L100.0100, L500.4050, L501.9520 ####[facility] [address] [place], [address] Sodium [Moles/Vol] 133 mmol/L Normal 133-145 [facility] Comment on above: Performed By: #### L 501.2450, L100.0100, L500.4050, L501.9520 ####[facility] [address] [place], [address] T PROT 6.3 g/dL Normal 5.9-8.4 [facility] Comment on above: Performed By: #### L 501.2450, L100.0100, L500.4050, L501.9520 ####[facility] [address] [place], [address] Urea nitrogen [Mass/Vol] 38 mg/dL High 4-19 [facility] Comment on above: Performed By: #### L 501.2450, L100.0100, L500.4050, L501.9520 ####[facility] [address] [place], [address] Echo Completeon 11-29-2024 Echo Complete Normal [facility] Emergency Department Summary on 11-29-2024 Emergency Department Summary Normal [facility] Eosinophil percentageOrdered By: Virgil Tyler on 11-29-2024 Eosinophils/100 WBC (Bld) 2.9 % 0-5 [facility] Erythrocyte distribution wid th ratioOrdered By: Virgil Tyler on 11-29-2024 Erythrocyte distribution width (RBC) [Ratio] 14.4 % 11.6-14.6 [facility] Erythrocyte distribution wid th standard deviationOrdered By: Virgil Tyler on 11-29-2024 Erythrocyte distribution width (RBC) [Ratio] 46.8 fl High 35.1-43.9 [facility] Glomerular filtration rate ( GFR) estimation/1.73 sq m using serum, plasma, or whole bOrdered By: Virgil Tyler on 11-29-2024 GFR/1.73 sq M.predicted among non-blacks MDRD (S/P/Bld) [Vol rate/Area] 49 mL/min/{1.73_m2} Low >60 [facility] Comment on above: mL/min/1.73m2 CKD-EP I Creatinine Equation (2020) H AND P Exam - [facility] 11-29-2024 H&P Exam - Hospitalist Normal [facility] Hematocrit Auto (Bld) [Volum e fraction]Ordered By: Virgil Tyler on 11-29-2024 Hematocrit (Bld) [Volume fraction] 34.5 % Low 37-47 [facility] Hemoglobin A1con 11-29-2024 HbA1c (Bld) [Mass fraction] 5.7 % Normal <=5.6 [facility] Comment on above: Result Comment: Norm al < 5.7 % Prediabetic 5.7 - 6.4 % Diabetic >or= 6.5 % Please note range changes. Performed By: #### L 501.9100, L501.9985, L501.9520, L501.5200, L505.5000 ####[facility] [address] [place], [address] Hemoglobin A1c percentageOrd ered By: Tacho Goncalves on 11-29-2024 HbA1c (Bld) [Mass fraction] 5.7 % <5.7 [facility] Comment on above: Normal < 5.7 % Predi abetic 5.7 - 6.4 % Diabetic >or= 6.5 % Please note range changes. Hemoglobin measurementOrdere d By: Virgil Tyler on 11-29-2024 Hemoglobin (Bld) [Mass/Vol] 11.6 g/dL Low 12.0-15.0 [facility] Immature granulocytes/100 WB C Auto (Bld)Ordered By: Virgil Tyler on 11-29-2024 Immature granulocytes/100 WBC (Bld) 0.500 % 0.0-0.9 [facility] Comment on above: IG% - Immature Granu locytes (promyelocytes, myelocytes and metamyelocytes) > 1% indicates that a LEFT SHIFT is Present. Ketones Test strip Ql (U)Ord ered By: Virgil Tyler on 11-29-2024 Ketones Ql (U) Negative Negative [facility] Laboratory - Chemistry and C hemistry - challengeOrdered By: Virgil Tyler on 11-29-2024 AST [Catalytic activity/Vol] 29 U/L <32 [facility] Lipaseon 11-29-2024 Lipase [Catalytic activity/Vol] 20 U/L Normal 13-75 [facility] Comment on above: Result Comment: Tomasa garcia note:LIPASE revised reference range effective 22.New Lipase methodology. Expected to produce lower valuesthan the previous assay method.NEW Reference Range: 13 - 75 U/L Performed By: #### L 501.2450, L100.0100, L500.4050, L501.9520 ####[facility] [address], [place], [address] Lipase measurementOrdered By : Virgil Tyler on 11-29-2024 Lipase [Catalytic activity/Vol] 20 U/L 13-75 [facility] Comment on above: Please note:LIPASE r evised reference range effective 22. New Lipase methodology. Expected to produce lower values than the previous assay method. NEW Reference Range: 13 - 75 U/L MCV (mean corpuscular volume ) determinationOrdered By: Virgil Tyler on 11-29-2024 MCV (RBC) [Entitic vol] 89.4 fL 81-99 [facility] Magnesiumon 11-29-2024 Magnesium [Mass/Vol] 2.3 mg/dL High 1.5-2.2 [facility] Comment on above: Performed By: #### L 501.9100, L501.9985, L501.9520, L501.5200, L505.5000 ####[facility] [address] [place], [place], [address] Magnesium measurement (mass/ volume)Ordered By: Tacho Goncalves on 11-29-2024 Magnesium (Unsp spec) [Mass/Vol] 2.3 mg/dL High 1.5-2.2 [facility] Mean corpuscular hemoglobin (MCH) determinationOrdered By: Virgil Tyler on 11-29-2024 MCH (RBC) [Entitic mass] 30.1 pg 27.0-32.0 [facility] Mean corpuscular hemoglobin concentration (MCHC) determinationOrdered By: Virgil Tyler on 11-29-2024 MCHC (RBC) [Mass/Vol] 33.6 g/dL 32-36 [facility] Mean platelet volume determi nationOrdered By: Virgil Tyler on 11-29-2024 Platelet mean volume (Bld) [Entitic vol] 10.2 fL 6.2-12.0 [facility] Microscopic analysis of urin e for red blood cells (RBC)Ordered By: Virgil Tyler on 11-29-2024 Microscopic analysis of urine for red blood cells (RBC) 0 SEEN /hpf 0-5 [facility] Monocyte percentageOrdered B y: Virgil Tyler on 11-29-2024 Monocytes/100 WBC (Bld) 12.1 % High 0-10 [facility] Mucus LM Ql (Urine sed)Order ed By: Virgil Tyler on 11-29-2024 Mucus Ql (Urine sed) 0 SEEN /hpf [facility] Neutrophil percentageOrdered By: Virgil Tyler on 11-29-2024 Neutrophils/100 WBC (Bld) 72.4 % High 47-70 [facility] Nitrite Test strip Ql (U)Ord ered By: Virgil Tyler on 11-29-2024 Nitrite Ql (U) Negative Negative [facility] Nucleated red blood cell per centageOrdered By: Virgil Tyler on 11-29-2024 Nucleated RBC/100 WBC (Bld) [Ratio] 0 % 0-5 [facility] Platelet countOrdered By: Rj Tyler on 11-29-2024 Platelets (Bld) [#/Vol] 201 10*3/uL 150-450 [facility] Potassium measurement (mass/ volume)Ordered By: Virgil Tyler on 11-29-2024 Potassium (Unsp spec) [Mass/Vol] 5.0 mmol/L 3.3-5.1 [facility] Comment on above: Hemolysis present, R esults could be affected. Protein Test strip Ql (U)Ord ered By: Virgil Tyler on 11-29-2024 Protein Ql (U) Negative Negative [facility] RBC Auto (Bld) [#/Vol]Ordere d By: Virgil Tyler on 11-29-2024 RBC (Bld) [#/Vol] 3.86 10*6/uL Low 4.2-5.4 [facility] Serum creatinine measurement (mass/volume)Ordered By: Virgil Tyler on 11-29-2024 Creatinine [Mass/Vol] 1.11 mg/dL 0.70-1.20 [facility] Serum globulin measurementOr dered By: Virgil Tyler on 11-29-2024 Globulin (S) [Mass/Vol] 2.4 g/dL 2.2-4.2 [facility] Serum glucose measurement (m ass/volume)Ordered By: Virgil Tyler on 11-29-2024 Glucose [Mass/Vol] 94 mg/dL 70-99 [facility] Serum or plasma alanine sprague otransferase (ALT) measurementOrdered By: Virgil Tyler on 11-29-2024 ALT [Catalytic activity/Vol] 37 U/L High <35 [facility] Serum or plasma albumin julee urement (mass/volume)Ordered By: Virgil Tyler on 11-29-2024 Albumin [Mass/Vol] 4.0 g/dL 3.4-4.8 [facility] Serum or plasma albumin/glob ulin mass ratioOrdered By: Virgil Tyler on 11-29-2024 Albumin/Globulin [Mass ratio] 1.7 {ratio} 0.9-2.4 [facility] Serum or plasma alkaline rachel sphatase measurementOrdered By: Virgil Tyler on 11-29-2024 ALP [Catalytic activity/Vol] 63 U/L 35-104 [facility] Serum or plasma calcium julee urement (mass/volume)Ordered By: Virgil Tyler on 11-29-2024 Calcium [Mass/Vol] 8.9 mg/dL 7.6-11.0 [facility] Serum or plasma ethanol julee urement (mass/volume)Ordered By: Tacho Goncalves on 11-29-2024 Ethanol [Mass/Vol] mg/dL <10.1 [facility] Comment on above: This test is for med ical purposes only. The legal definition of intoxication varies according to local law. Serum or plasma urea nitroge n measurement (mass/volume)Ordered By: Virgil Tyler on 11-29-2024 Urea nitrogen [Mass/Vol] 38 mg/dL High 4-19 [facility] Sodium levelOrdered By: Virgil Tyler on 11-29-2024 Sodium [Moles/Vol] 133 mmol/L 133-145 [facility] Squamous epithelial cells de tection in urine sediment by light microscopyOrdered By: Virgil Tyler on 11-29-2024 Epithelial cells.squamous LM Ql (Urine sed) 0-5 SEEN /hpf 5-10 [facility] TSH DL <= 0.005 mIU/L QnOrde red By: Virgil Tyler on 11-29-2024 TSH Qn 2.190 uIU/mL 0.300-4.200 [facility] TSH DL <= 0.005 mIU/L QnOrde red By: Tacho Goncalves on 11-29-2024 TSH Qn 2.120 uIU/mL 0.300-4.200 [facility] Thyroid Stim Hormone (TSH)on 11-29-2024 TSH 2.120 uIU/mL Normal 0.300-4.200 [facility] Comment on above: Performed By: #### L 501.8400, L501.9985, L501.9520, L501.5200, L505.5000 ####[facility] [address] [place], [address] TSH 2.190 uIU/mL Normal 0.300-4.200 [facility] Comment on above: Performed By: #### L 501.2450, L100.0100, L500.4050, L501.9520 ####[facility] [address] [place], [address] Total proteinOrdered By: Leticia Tyler on 11-29-2024 Protein [Mass/Vol] 6.3 g/dL 5.9-8.4 [facility] Urinalysis, Completeon 11-29 EPI,SQUAMOUS 0-5 SEEN Normal 5-10 [facility] Comment on above: Order Comment: LISANDRA CTOR TO SPECIFY Performed By: #### L 400.0001 ####[facility] [address] [place], [address] WBC 0-5 SEEN Normal 0-5 [facility] Comment on above: Order Comment: LISANDRA CTOR TO SPECIFY Performed By: #### L 400.0001 ####[facility] [address] [place], [address] BACTERIA 0 SEEN Normal None Seen [facility] Comment on above: Order Comment: LISANDRA CTOR TO SPECIFY Performed By: #### L 400.0001 ####[facility] [address] [place], [address] Mucus Ql (Urine sed) 0 SEEN Normal [facility] Comment on above: Order Comment: LISANDRA CTOR TO SPECIFY Performed By: #### L 400.0001 ####[facility] [address] [place], [address] RBC 0 SEEN Normal 0-5 [facility] Comment on above: Order Comment: LISANDRA CTOR TO SPECIFY Performed By: #### L 400.0001 ####[facility] [address] [place], [address] Urine clarityOrdered By: Leticia Tyler on 11-29-2024 Clarity (U) Clear Clear [facility] Urine color determinationOrd ered By: Virgil Tyler on 11-29-2024 Color (U) Yellow Yellow [facility] Urine glucose detectionOrder ed By: Virgil Tyler on 11-29-2024 Glucose Ql (U) Normal mg/dl Normal [facility] Urine leukocyte esterase det ection by dipstickOrdered By: Virgil Tyler on 11-29-2024 Leukocyte esterase Test strip Ql (U) 500 /ul High Negative [facility] Urine pHOrdered By: Virgil del real on 11-29-2024 pH (U) 6.0 [pH] 5.0 - 8.0 [facility] Urine sediment bacteria coun t by microscopy (number/high power field)Ordered By: Virgil Tyler on 11-29-2024 Bacteria LM.HPF (Urine sed) [#/Area] 0 /[HPF] None Seen [facility] Urine specific gravity measu rementOrdered By: Virgil Tyler on 11-29-2024 Specific gravity (U) [Rel density] 1.010 1.002-1.030 [facility] Urine urobilinogen measureme ntOrdered By: Virgil Tyler on 11-29-2024 Urobilinogen Ql (U) Normal mg/dl Normal [facility] Vitamin B12 ser/plasOrdered By: Tacho Goncalves on 11-29-2024 Cobalamin (Vitamin B12) [Mass/Vol] 2838 pg/mL High 180-914 [facility] White blood cell (WBC) count Ordered By: Virgil Tyler on 11-29-2024 WBC (Bld) [#/Vol] 9.6 10*3/uL 4.4-11.0 [facility] White blood cell countOrdere d By: Virgil Tyler on 11-29-2024 White blood cell count 0-5 SEEN /hpf 0-5 [facility] CNPNon 11-10-2024 CNPN Telephone (FAMPWS) MICHAEL MEIER ([id number]) 1940 F Date Time Provider Department 11/10/24 MICHAEL PUGA FAMPWS During your visit today, we recorded the following information about you: Amanda Pratt RN 11/10/2024 2:50 PM Signed Kell with [facility] calls to let provider know that [...] SULFA (SULFONAMIDE ANTIBIOTICS) 03/17/2001 Comments: hives VICODIN (HYDROCODONE-ACETAMINO PHE*01/08/2005 5 - Intolerance Comments: dizzy,nausea,vomiting, headache ZITHROMAX (AZITHROMYCIN) 05/20/2017 5 - Intolerance Date [...] (more content not included)... Normal [facility] Cardiology Visit Reporton Cardiology Visit Report Normal [facility] 11-01-2024 LORRI Telephone (FAMDNA) MICHAEL MEIER ([id number]) 1940 F Date Time Provider Department 11/01/24 KEY PORTILLO During your visit today, we recorded the following information about you: Key Portillo APRN.[facility] 11/01/2024 9:22 AM Signed ----- Message from Sarah Merchant PT sent at 10/27/2024 6:59 PM EDT ----- Hi Dr Puga, We're seeing Michael for PT (she was referred by [facility]) and we've also seen her here in the past for ortho/mobility issues. She's been reporting increased Shortness of Breath with minimal activity which I definitely noticed today (I encouraged her to go to ER prn but she doesn't think it's necessary). She's also reporting increased low back pain (mostly with standing AND walking). 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 I also think a spine/pain mgmt consult would be a good idea for the chronic/worsening low back pain. Thanks, Sarah Merchant, PT Key Portillo APRN.[facility] 11/01/2024 9:22 AM Signed Please see if [...] SULFA (SULFONAMIDE ANTIBIOTICS) 03/17/2001 Comments: imani VICODIN (HYDROCODONE-ACETAMINO PHE*01/08/2005 5 - Intolerance Comments: dizzy,nausea,vomiting, headache ZITHROMAX (AZITHROMYCIN) 05/20/2017 5 - Intolerance Date [...] (more content not included)... Normal [facility] Absolute lymphocyte countOrd ered By: Anabel Horne on 10-31-2024 Lymphocytes Auto (Unsp spec) [#/Vol] 1.16 10*3/uL 0.83-4.51 [facility] Absolute neutrophil countOrd ered By: Anabel Horne on 10-31-2024 Neutrophils (Bld) [#/Vol] 10.5 10*3/uL High 2.0-7.7 [facility] Anion gap in Serum or Plasma Ordered By: Anabel Horne on 10-31-2024 Anion gap [Moles/Vol] 14 mmol/L 5-15 [facility] Automated lymphocyte count a s percentage of total leukocytesOrdered By: Anabel Horne on 10-31-2024 Lymphocytes/100 WBC Auto (Unsp spec) 8.7 % Low 19-41 [facility] BUN/creatinine ratioOrdered By: Anabel Horne on 10-31-2024 Urea nitrogen/Creatinine [Mass ratio] 26.2 mg/mg High 10-20 [facility] Basic Metabolic Profile (BMP )on 10-31-2024 BUN/CRE 26.2 RATIO High 10- [facility] Comment on above: Performed By: #### L 501.9520, L500.2500, L100.0100, L503.7505 ####[facility] [address] [place], [place], [address] Calcium [Mass/Vol] 9.0 mg/dL Normal 7.6-11.0 [facility] Comment on above: Performed By: #### L 501.9520, L500.2500, L100.0100, L503.7505 ####[facility] [address] [place], [address] Chloride [Moles/Vol] 96 mmol/L Low 98-108 [facility] Comment on above: Performed By: #### L 501.9520, L500.2500, L100.0100, L503.7505 ####[facility] [address] [place], [address] CO2 [Moles/Vol] 23.0 mmol/L Normal 21.0-32.0 [facility] Comment on above: Performed By: #### L 501.9520, L500.2500, L100.0100, L503.7505 ####[facility] [address] [place], [address] Creatinine [Mass/Vol] 1.40 mg/dL High 0.70-1.20 [facility] Comment on above: Performed By: #### L 501.9520, L500.2500, L100.0100, L503.7505 ####[facility] [address] [place], [address] GAP 14 Normal 5-15 [facility] Comment on above: Performed By: #### L 501.9520, L500.2500, L100.0100, L503.7505 ####[facility] [address] [place], [address] GFR/1.73 sq M.predicted among non-blacks MDRD (S/P/Bld) [Vol rate/Area] 37 mL/min/{1.73_m2} Low >60 [facility] Comment on above: Result Comment: mL/m in/1.73m2 CKD-EPI Creatinine Equation (2020) Performed By: #### L 501.9520, L500.2500, L100.0100, L503.7505 ####[facility] [address] [place], [address] Glucose [Mass/Vol] 94 mg/dL Normal 70-99 [facility] Comment on above: Performed By: #### L 501.9520, L500.2500, L100.0100, L503.7505 ####[facility] [address] [place], [address] Potassium [Moles/Vol] 5.0 mmol/L Normal 3.3-5.1 [facility] Comment on above: Result Comment: Hemo lysis present, Results??could be affected.?? Performed By: #### L 501.9520, L500.2500, L100.0100, L503.7505 ####[facility] [address] [place], [address] Sodium [Moles/Vol] 133 mmol/L Normal 133-145 [facility] Comment on above: Performed By: #### L 501.9520, L500.2500, L100.0100, L503.7505 ####[facility] [address] [place], [address] Urea nitrogen [Mass/Vol] 37 mg/dL High 4-19 [facility] Comment on above: Performed By: #### L 501.9520, L500.2500, L100.0100, L503.7505 ####[facility] [address] [place], [address] Basophil percentageOrdered B y: Anabel Horne on 10-31-2024 Basophils/100 WBC (Bld) 0.6 % 0-1 [facility] CBC W/Diff, Automatedon 07-0 Absolute Lymph 1.16 X10 3/uL Normal 0.83-4.51 [facility] Comment on above: Performed By: #### L 501.9520, L500.2500, L100.0100, L503.7505 ####[facility] [address] [place], [address] Absolute Neut 10.5 X10 3/uL High 2.0-7.7 [facility] Comment on above: Performed By: #### L 501.9520, L500.2500, L100.0100, L503.7505 ####[facility] [address] [place], [address] Basophils/100 WBC (Bld) 0.6 % Normal 0-1 [facility] Comment on above: Performed By: #### L 501.9520, L500.2500, L100.0100, L503.7505 ####[facility] [address] [place], [address] Eosinophils/100 WBC (Bld) 0.7 % Normal 0-5 [facility] Comment on above: Performed By: #### L 501.9520, L500.2500, L100.0100, L503.7505 ####[facility] [address] [place], [address] Erythrocyte distribution width (RBC) [Ratio] 14.4 % Normal 11.6-14.6 [facility] Comment on above: Performed By: #### L 501.9520, L500.2500, L100.0100, L503.7505 ####[facility] [address] [place], [address] Hematocrit (Bld) [Volume fraction] 37.0 % Normal 37-47 [facility] Comment on above: Performed By: #### L 501.9520, L500.2500, L100.0100, L503.7505 ####[facility] [address] [place], [address] Hemoglobin (Bld) [Mass/Vol] 12.4 g/dL Normal 12.0-15.0 [facility] Comment on above: Performed By: #### L 501.9520, L500.2500, L100.0100, L503.7505 ####[facility] [address] [place], [address] IG% 0.500 Normal 0.0-0.9 [facility] Comment on above: Result Comment: IG% - Immature Granulocytes (promyelocytes, myelocytes andmetamyelocytes) > 1% indicates that a LEFT SHIFT is Present. Performed By: #### L 501.9520, L500.2500, L100.0100, L503.7505 ####[facility] [address] [place], [address] Lymphocytes/100 WBC (Bld) 8.7 % Low 19-41 [facility] Comment on above: Performed By: #### L 501.9520, L500.2500, L100.0100, L503.7505 ####[facility] [address] [place], [address] MCH (RBC) [Entitic mass] 30.3 pg Normal 27.0-32.0 [facility] Comment on above: Performed By: #### L 501.9520, L500.2500, L100.0100, L503.7505 ####[facility] [address] [place], [address] MCHC (RBC) [Mass/Vol] 33.5 g/dL Normal 32-36 [facility] Comment on above: Performed By: #### L 501.9520, L500.2500, L100.0100, L503.7505 ####[facility] [address] [place], [address] MCV (RBC) [Entitic vol] 90.5 fL Normal 81-99 [facility] Comment on above: Performed By: #### L 501.9520, L500.2500, L100.0100, L503.7505 ####[facility] [address] [place], [address] Monocytes/100 WBC (Bld) 10.6 % High 0-10 [facility] Comment on above: Performed By: #### L 501.9520, L500.2500, L100.0100, L503.7505 ####[facility] [address] [place], [address] Neutrophils/100 WBC (Bld) 78.9 % High 47-70 [facility] Comment on above: Performed By: #### L 501.9520, L500.2500, L100.0100, L503.7505 ####[facility] [address] [place], [address] Nucleated RBC (Bld) [#/Vol] 0 10*3/uL Normal 0-5 [facility] Comment on above: Performed By: #### L 501.9520, L500.2500, L100.0100, L503.7505 ####[facility] [address] [place], [address] Platelet mean volume (Bld) [Entitic vol] 10.1 fL Normal 6.2-12.0 [facility] Comment on above: Performed By: #### L 501.9520, L500.2500, L100.0100, L503.7505 ####[facility] [address] [place], [address] Platelets (Bld) [#/Vol] 292 10*3/uL Normal 150-450 [facility] Comment on above: Performed By: #### L 501.9520, L500.2500, L100.0100, L503.7505 ####[facility] [address] [place], [address] RBC (Bld) [#/Vol] 4.09 10*6/uL Low 4.2-5.4 [facility] Comment on above: Performed By: #### L 501.9520, L500.2500, L100.0100, L503.7505 ####[facility] [address] [place], [address] RDW SD 47.9 fl High 35.1-43.9 [facility] Comment on above: Performed By: #### L 501.9520, L500.2500, L100.0100, L503.7505 ####[facility] [address] [place], [place], [address] WBC (Bld) [#/Vol] 13.3 10*3/uL High 4.4-11.0 [facility] Comment on above: Performed By: #### L 501.9520, L500.2500, L100.0100, L503.7505 ####[facility] [address] [place], [place], [address] Carbon dioxide, total [Moles /volume] in Central venous bloodOrdered By: Anabel Horne on 10-31-2024 CO2 [Moles/Vol] 23.0 mmol/L 21.0-32.0 [facility] Chest PA and Lateralon 10-31 Chest PA and Lateral Normal [facility] Chloride assayOrdered By: Sugey Horne on 10-31-2024 Chloride [Moles/Vol] 96 mmol/L Low 98-108 [facility] Eosinophil percentageOrdered By: Anabel Horne on 10-31-2024 Eosinophils/100 WBC (Bld) 0.7 % 0-5 [facility] Erythrocyte distribution wid th ratioOrdered By: Anabel Horne on 10-31-2024 Erythrocyte distribution width (RBC) [Ratio] 14.4 % 11.6-14.6 [facility] Erythrocyte distribution wid th standard deviationOrdered By: Anabel Horne on 10-31-2024 Erythrocyte distribution width (RBC) [Ratio] 47.9 fl High 35.1-43.9 [facility] Glomerular filtration rate ( GFR) estimation/1.73 sq m using serum, plasma, or whole bOrdered By: Anabel Horne on 10-31-2024 GFR/1.73 sq M.predicted among non-blacks MDRD (S/P/Bld) [Vol rate/Area] 37 mL/min/{1.73_m2} Low >60 [facility] Comment on above: mL/min/1.73m2 CKD-EP I Creatinine Equation (2020) Hematocrit Auto (Bld) [Volum e fraction]Ordered By: Anabel Horne on 10-31-2024 Hematocrit (Bld) [Volume fraction] 37.0 % 37-47 [facility] Hemoglobin measurementOrdere d By: Anabel Horne on 10-31-2024 Hemoglobin (Bld) [Mass/Vol] 12.4 g/dL 12.0-15.0 [facility] Immature granulocytes/100 WB C Auto (Bld)Ordered By: Anabel Horne on 10-31-2024 Immature granulocytes/100 WBC (Bld) 0.500 % 0.0-0.9 [facility] Comment on above: IG% - Immature Granu locytes (promyelocytes, myelocytes and metamyelocytes) > 1% indicates that a LEFT SHIFT is Present. L503.7505on 10-31-2024 Natriuretic peptide B (Bld) [Mass/Vol] 216 pg/mL Normal <=1800 [facility] Comment on above: Result Comment: Hear t Failure Unlikely: < 300 pg/mLHeart Failure Likely< 50 Years: > 450 pg/mL50-75 Years: > 900 pg/mL>75 Years: > 1800 pg/mL Performed By: #### L 501.9520, L500.2500, L100.0100, L503.7505 ####[facility] [address] [place], [address] MCV (mean corpuscular volume ) determinationOrdered By: Anabel Horne on 10-31-2024 MCV (RBC) [Entitic vol] 90.5 fL 81-99 [facility] Mean corpuscular hemoglobin (MCH) determinationOrdered By: Anabel Horne on 10-31-2024 MCH (RBC) [Entitic mass] 30.3 pg 27.0-32.0 [facility] Mean corpuscular hemoglobin concentration (MCHC) determinationOrdered By: Anabel Horne on 10-31-2024 MCHC (RBC) [Mass/Vol] 33.5 g/dL 32-36 [facility] Mean platelet volume determi nationOrdered By: Anabel Horne on 10-31-2024 Platelet mean volume (Bld) [Entitic vol] 10.1 fL 6.2-12.0 [facility] Monocyte percentageOrdered B y: Anabel Horne on 10-31-2024 Monocytes/100 WBC (Bld) 10.6 % High 0-10 [facility] Natriuretic peptide.B prohor carmelita N-Terminal [Mass/volume] in Serum or PlasmaOrdered By: Anabel Horne on 10-31-2024 Natriuretic peptide.B prohormone N-Terminal [Mass/Vol] 216 pg/mL <1800 [facility] Comment on above: Heart Failure Unlike ly: < 300 pg/mLHeart Failure Likely< 50 Years: > 450 pg/mL50-75 Years: > 900 pg/mL>75 Years: > 1800 pg/mL Neutrophil percentageOrdered By: Anabel Horne on 10-31-2024 Neutrophils/100 WBC (Bld) 78.9 % High 47-70 [facility] Nucleated red blood cell per centageOrdered By: Anabel Horne on 10-31-2024 Nucleated RBC/100 WBC (Bld) [Ratio] 0 % 0-5 [facility] Platelet countOrdered By: Sugey Horne on 10-31-2024 Platelets (Bld) [#/Vol] 292 10*3/uL 150-450 [facility] Potassium measurement (mass/ volume)Ordered By: Anabel Horne on 10-31-2024 Potassium (Unsp spec) [Mass/Vol] 5.0 mmol/L 3.3-5.1 [facility] Comment on above: Hemolysis present, R esults could be affected. RBC Auto (Bld) [#/Vol]Ordere d By: Anabel Horne on 10-31-2024 RBC (Bld) [#/Vol] 4.09 10*6/uL Low 4.2-5.4 [facility] Serum creatinine measurement (mass/volume)Ordered By: Anabel Horne on 10-31-2024 Creatinine [Mass/Vol] 1.40 mg/dL High 0.70-1.20 [facility] Serum glucose measurement (m ass/volume)Ordered By: Anabel Horne on 10-31-2024 Glucose [Mass/Vol] 94 mg/dL 70-99 [facility] Serum or plasma calcium julee urement (mass/volume)Ordered By: Anabel Horne on 10-31-2024 Calcium [Mass/Vol] 9.0 mg/dL 7.6-11.0 [facility] Serum or plasma urea nitroge n measurement (mass/volume)Ordered By: Anabel Horne on 10-31-2024 Urea nitrogen [Mass/Vol] 37 mg/dL High 4-19 [facility] Sodium levelOrdered By: Thien Horne on 10-31-2024 Sodium [Moles/Vol] 133 mmol/L 133-145 [facility] TSH DL <= 0.005 mIU/L QnOrde red By: Anabel Horne on 10-31-2024 TSH Qn 3.460 uIU/mL 0.300-4.200 [facility] Thyroid Stim Hormone (TSH)on 10-31-2024 TSH 3.460 uIU/mL Normal 0.300-4.200 [facility] Comment on above: Performed By: #### L 501.9520, L500.2500, L100.0100, L503.7505 ####[facility] [address] [place], [place], [address] White blood cell (WBC) count Ordered By: Anabel Horne on 10-31-2024 WBC (Bld) [#/Vol] 13.3 10*3/uL High 4.4-11.0 [facility] CNTHERAPYon 10-27-2024 CNTHERAPY OT/PT/Speech Visit (LDPT) MICHAEL MEIER ([id number]) 1940 F Date Time Provider Department 10/27/24 12:45 PM SARAH MERCHANT LDPT Date Time Provider Department Center 10/27/2024 12:45 PM [id number], CARLA ADRIANA [facility] Reason for Visit: Physical Therapy [503] [...] SULFA (SULFONAMIDE ANTIBIOTICS) 03/17/2001 Comments: hives VICODIN (HYDROCODONE-ACETAMINO PHE*01/08/2005 5 - Intolerance Comments: dizzy,nausea,vomiting, headache ZITHROMAX (AZITHROMYCIN) 05/20/2017 5 - Intolerance Date [...] 1 capsule by mouth once daily. Normal [facility] 10-25-2024 [facility] Telephone (LSICKWS) MICHAEL MEIER ([id number]) 1940 F Date Time Provider Department 10/25/24 MICHAEL PUGA [facility] During your visit today, we recorded the [...] SULFA (SULFONAMIDE ANTIBIOTICS) 03/17/2001 Comments: imani VICODIN (HYDROCODONE-ACETAMINO PHE*01/08/2005 5 - Intolerance Comments: dizzy,nausea,vomiting, headache ZITHROMAX (AZITHROMYCIN) 05/20/2017 5 - Intolerance Date [...] SKIN FACE NEC [D23.30] 01/20/2007 01/09/2012 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 01/09/2012 DYSMETABOLIC SYNDRO (more content not included)... Normal [facility] CNTHERAPYon 10-09-2024 CNTHERAPY OT/PT/Speech Visit (LDPT) MICHAEL MEIER ([id number]) 1940 F Date Time Provider Department 10/09/24 12:45 PM JOY SUN LDPT Date Time Provider Department [place] 10/09/2024 12:45 PM [id number] SUNLDPT [facility] Reason for Visit: Physical Therapy [503] [...] SULFA (SULFONAMIDE ANTIBIOTICS) 03/17/2001 Comments: hives VICODIN (HYDROCODONE-ACETAMINO PHE*01/08/2005 5 - Intolerance Comments: dizzy,nausea,vomiting, headache ZITHROMAX (AZITHROMYCIN) 05/20/2017 5 - Intolerance Date [...] [facility] 10-02-2024 CNTHERAPY OT/PT/Speech Visit (LDPT) MICHAEL MEIER ([id number]) 1940 F Date Time Provider Department 10/02/24 3:00 PM PJ BLEDSOE LDPT Date Time Provider Department Center 10/02/2024 3:00 PM [id number], JAY LDPT [facility] Reason for Visit: Physical Therapy [503] [...] SULFA (SULFONAMIDE ANTIBIOTICS) 03/17/2001 Comments: hives VICODIN (HYDROCODONE-ACETAMINO PHE*01/08/2005 5 - Intolerance Comments: dizzy,nausea,vomiting, headache ZITHROMAX (AZITHROMYCIN) 05/20/2017 5 - Intolerance Date [...] once daily. Normal [facility] [id number] 09-28-2024 [id number] HNO ID: [id number] Author: SARAH MERCHANT PT Service: ? Author Type: Physical Therapist Type: [id number] Filed: 09/28/2024 15:41 Note Text: [facility] Physical Therapy Plan of Care Certification Patient Name: Michael Meier : 1940 [facility] #: [id number] Date: 09/28/2024 To: Arlene Schwarz MD From [...] increase T-score by a minimum 5 points. Burke in home exercise program. Patient will demonstrate [...] Planned: 12 Planned Treatment Interventions: Therapeutic exercise (78957), Neuromuscular re-education (98600), Therapeutic activities (58029), Self-fci management (13126), Gait Training (87740), Patient/Family/Caregiv er Education, General Conditioning PLAN FOR NEXT VISIT: [...] reviewed the treatment plan for Michael Meier, [facility]# [id number] for the period of 09/28/24 -- 12/27/24, established on 09/28/2024. Signature certifies the need for therapy services. [facility] Priscila 09-28-2024 LORRI Telephone (FAMPWS) MICHAEL MEIER ([id number]) 1940 F Date Time Provider Department 09/28/24 KEY PORTILLO During your visit today, we recorded the following information about you: Nadine Colon LPN 09/28/2024 1:48 PM Signed Kell from [facility] calling to report patient tremor is [...] of the office. Please advise Key Portillo APRN.CARMELINA 09/28/2024 3:02 PM Signed Pt needs appointment to assess this. This was not mentioned in recent office visit 1 month ago. Thank you, Key Portillo APRN.CARMELINA GoldmanmallyMarisol LPN 09/28/2024 4:01 PM Signed Spoke with [...] SULFA (SULFONAMIDE ANTIBIOTICS) 03/17/2001 Comments: imani VICODIN (HYDROCODONE-ACETAMINO PHE*01/08/2005 5 - Intolerance Comments: dizzy,nausea,vomiting, headache ZITHROMAX (AZITHROMYCIN) 05/20/2017 5 - Intolerance Date [...] (more content not included)... Normal [facility] CNTHERAPYon 09-28-2024 CNTHERAPY OT/PT/Speech Visit (LDPT) HARDEEPMICHAEL ([id number]) 1940 F Date Time Provider Department 09/28/24 2:15 PM SARAH MERCHANT Date Time Provider Department Center 09/28/2024 2:15 PM [id number] MERCHANT [facility] Reason for Visit: PT Eval [747] [...] SULFA (SULFONAMIDE ANTIBIOTICS) 03/17/2001 Comments: hives VICODIN (HYDROCODONE-ACETAMINO PHE*01/08/2005 5 - Intolerance Comments: dizzy,nausea,vomiting, headache ZITHROMAX (AZITHROMYCIN) 05/20/2017 5 - Intolerance Date [...] Text Normal [facility] Priscila 09-08-2024 [facility] Telephone (FAMPWS) MICHAEL MEIER ([id number]) 1940 F Date Time Provider Department 09/08/24 MICHAEL PUGA During your visit today, we recorded the following information about you: Loli Adamson, RN 09/08/2024 10:46 AM Signed Jackelin- Poornima- reports since pt has dx JOSE on CPAP, per medicare guidelines, pt would have to have sleep titration study to qualify for oxygen. States pt would not qualify for oxygen- with overnight pulse oximetry test per medicare guidelines. Please phone Jackelin with any questions: [phone] extension [phone] Michael Puga DO 09/08/2024 12:37 PM Signed Noted, is she willing to do this testing? DO Juan Diego Dow M Robin, GLYNN 09/08/2024 1:38 PM Signed Phoned pt and explained what Poornima reported needed to be done per Medicare guidelines for her to qualify for oxygen. Pt reports she was in [facility] about a yr ago with pneumonia, [...] SULFA (SULFONAMIDE ANTIBIOTICS) 03/17/2001 Comments: hivmyranda VICODIN (HYDROCODONE-ACETAMINO PHE*01/08/2005 5 - Intolerance Comments: dizzy,nausea,vomiting, headache ZITHROMAX (AZITHROMYCIN) 05/20/2017 5 - Intolerance Date [...] aspirin, e (more content not included)... Normal [facility] 09-05-2024 [facility] Telephone (SLICKWS) MICHAEL MEIER ([id number]) 1940 F Date Time Provider Department 09/05/24 [facility] PU[facility] During your visit today, we recorded the following information about you: Bhavna Arauz RN 09/05/2024 11:48 AM Signed Patient calls and states that palliative care nurse had just visited patient. Palliative nurse had told patient that patient would benefit to have oxygen at night. Patient state that nurse had told patient to call office about this. Please review and advise, GLYNN Bonillaon, Michael L, DO 09/05/2024 5:36 PM Signed Please clarify with more information What recommendation? Would need to have nighttime oximetry testing for me to order oxygen by insurance DO Rachael Dow Susan LPN 09/06/2024 1:12 PM Signed Pt. informed and would like to get the nighttime Oximetry. Bhavna Arauz RN 09/07/2024 11:18 AM Signed Petra NOLASCO from [facility] calls and is asking status of request. When order is placed, please fax order to [employer]. Please place order for nighttime pulsometry test and fax to [employer]. Please review and advise, GLYNN Bonilla Rebekah, APRN.CARMELINA 09/07/2024 1:33 PM Signed I placed the order best I know how to. Please fax per below request. Asia Rosales APRN.Jacque Arrieta MA 09/08/2024 8:16 AM Signed Please print script ALEX Arenas Rebekah, APRN.CARMELINA 09/08/2024 8:23 AM Signed It's in the [...] SULFA (SULFONAMIDE ANTIBIOTICS) 03/17/2001 Comments: imani VICODIN (HYDROCODONE-ACETAMINO PHE*01/08/2005 5 - Intolerance Comments: dizzy,nausea,vomiting, headache ZITHROMAX (AZITHROMYCIN) 05/20/2017 5 - Intolerance Date Reviewed: 08/30/2024 Reviewed by: Julianna Cano LPN - Fully Assessed Reason for Visit: Patient Question [5442] Primary Visit Diagnosis:Congestive heart failure, unspecified HF chronicity, unspecified heart failure type (HCC) [I50.9] Other Visit Diagnoses:Obstructive lung disease (HCC) [J44.9] Chronic respiratory failure with hypoxia (HCC) [J96.11] Order(s):NONINVASV OXYGEN SATUR;SINGLE [87125GGZ] Order #: [id number] Prescriptions as of 09/08/2024 - rOPINIRole (REQUIP) [...] (more content not included)... Normal [facility] CNOVon 08-30-2024 CNOV Office Visit (FAMPWS ) ALEXANDRUMICHAEL HOWARD Augusta ([id number]) 1940 F Date Time Provider Department 08/30/24 3:00 PM MICHAEL PUGA [facility] During your visit today, we recorded the following information about you: Temperature Pulse Respiration Blood pressure 97 degrees 64/minute 20/minute 148/64 Weight 104.3 kg Michael Puga DO 08/30/2024 10:10 PM Signed CC: Michael Deras Hardeep is a 84 year [...] FEM PROSTC AGRFT/ALGRFT Left 07/2016 [facility] CONDYLEANDPLATU MEDIALANDLAT COMPARTMENTS 11/15/2009 Knee replacement, total -Left - [facility] CONDYLEANDPLATU MEDIALANDLAT COMPARTMENTS 12/30/2009 Right knee replaced COLONOSCOPY FLX DX W/COLLJ SPEC WHEN PFRMD 06/29/2017 Colonoscopy EGD 10/17/2020 EGD W/O [facility] SPEC VARICIES INJ 01/08/2022 EGD W/O [facility] SPEC VARICIES INJ 03/31/2024 Lito ESOPHAGOGASTRODUODENOS COPY TRANSORAL DIAGNOSTIC 11/29/2000 EGD ESOPHAGOGASTRODUODENOS COPY TRANSORAL DIAGNOSTIC 06/29/2017 EGD JOINT REPLACEMENT HX [...] (more content not included)... Normal [facility] HEMOGLOBIN A1C (POC)on 08-30 HbA1c (Bld) [Mass fraction] 5.2 % 4.3 - 5.6 % [facility] Comment on above: Location:[facility], [address] [place] [address] [place], [address] Point of care (POC) Hemoglobin A1c (HGBA1C) [...] specific diabetes management situations: The POC device fence gate assembler provides a normal range of 4.2% to 6.5% for the HGBA1C POC test. However, the [place] [employer] guidelines indicate that patients with [...] anemia) that alter red blood cell lifespan. [facility] Priscila 08-25-2024 CNPN Telephone [facility] MICHAEL MEIER ([id number]) 1940 F Date Time Provider Department 08/25/24 ASIA ROSALES [facility] During your visit today, we recorded the following information about you: Ruba Argueta LPN 08/25/2024 9:35 AM Signed Petra from [facility] calling stating that the referral for Palliative Care be faxed to [facility] at [phone]. Referral and office visit faxed as requested. [...] SULFA (SULFONAMIDE ANTIBIOTICS) 03/17/2001 Comments: imani VICODIN (HYDROCODONE-ACETAMINO PHE*01/08/2005 5 - Intolerance Comments: dizzy,nausea,vomiting, headache ZITHROMAX (AZITHROMYCIN) 05/20/2017 5 - Intolerance Date [...] SKIN FACE NEC [D23.30] 01/20/2007 01/09/2012 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 01/09/2012 DYSMETABOLIC SYNDROME X [...] (more content not included)... Normal [facility] CNOVon 08-17-2024 CNOV Office Visit (FAMPWS ) MICHAEL MEIER ([id number]) 1940 F Date Time Provider Department 08/17/24 3:20 PM ASAI ROSALES FAMPWS During your visit today, we recorded the following information about you: Pulse Blood pressure 61/minute 136/68 Asia Rosales APRN.BRIDGE BUILDER 08/18/2024 8:27 AM Signed Chief Complaint Patient [...] FEM PROSTC AGRFT/ALGRFT Left 07/2016 [facility] CONDYLEANDPLATU MEDIALANDLAT COMPARTMENTS 11/15/2009 Knee replacement, total -[facility] ARTHRP E CONDYLEANDPLATU MEDIALANDLAT COMPARTMENTS 12/30/2009 Right knee replaced COLONOSCOPY FLX DX W/COLLJ SPEC WHEN PFRMD 06/29/2017 Colonoscopy EGD 10/17/2020 EGD W/O [facility] SPEC VARICIES INJ 01/08/2022 EGD W/O [facility] SPEC VARICIES INJ 03/31/2024 Lito ESOPHAGOGASTRODUODENOS COPY TRANSORAL DIAGNOSTIC 11/29/2000 EGD ESOPHAGOGASTRODUODENOS COPY TRANSORAL DIAGNOSTIC 06/29/2017 EGD JOINT REPLACEMENT HX [...] Sulfa (Sulfonamide * hives Vicodin [Hydrocodon* Intolerance dizzy,nausea,vomiting, headache Zithromax [Azithrom* Intolerance Current Medications Current Outpatient [...] ENTERIC COATED (more content not included)... [facility]FAMPWS[facility] MICHAEL MEIER ([id number]) 1940 F Date Time Provider Department 08/16/24 MICHAEL PUGA FAMPWS During your visit today, we recorded the following information about you: Loli Adamson, RN 08/16/2024 1:46 PM Signed Petra- - [facility]- reports she is seeing patient and spoke with patient today. Patient reports to SW she is depressed and feels she needs [...] nurse phoned patient and scheduled appt with Garnishment Specialist for tomorrow to see if Garnishment Specialist can increase patient's paxil. Asia Rosales APRN.CARMELINA 08/18/2024 2:37 PM Signed I saw her in the office yesterday 08/17 and these concerns were addressed. Asia Rosales APRN.BRIDGE BUILDER Allergies As of Date: 08/16/2024 Noted Allergy Reaction CIPROFLOXACIN 09/05/2018 2 - Rash DEMEROL (MEPERIDINE (PF)) 02/06/2011 11 - Vomiting OPIOIDS - MORPHINE ANALOGUES 03/17/2001 5 - Intolerance Comments: nausea, dizzy, sees things OPIOIDS-MEPERIDINE AND RELATED 02/17/2001 Comments: nausea/vomiting PENICILLIN G 02/17/2001 Comments: hives PRAVACHOL (PRAVASTATIN SODIUM) 03/09/2016 14 - Other: See Comments Comments: Leg cramps SULFA (SULFONAMIDE ANTIBIOTICS) 03/17/2001 Comments: hives VICODIN (HYDROCODONE-ACETAMINO PHE*01/08/2005 5 - Intolerance Comments: dizzy,nausea,vomiting, headache ZITHROMAX (AZITHROMYCIN) 05/20/2017 5 - Intolerance Date [...] List As Of Date 08/16/2024 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 Normal [facility] Anion gap in Serum or Plasma Ordered By: Anabel Horne on 07-07-2024 Anion gap [Moles/Vol] 20 mmol/L High 5-15 [facility] BUN/creatinine ratioOrdered By: Anabel Horne on 07-07-2024 Urea nitrogen/Creatinine [Mass ratio] 26.5 mg/mg High 10-20 [facility] Basic Metabolic Profile (BMP )on 07-07-2024 BUN/CRE 26.5 RATIO High 10-20 [facility] Comment on above: Performed By: #### L 500.2500 ####[facility] [address] [place], [address] Calcium [Mass/Vol] 9.5 mg/dL Normal 7.6-11.0 [facility] Comment on above: Performed By: #### L 500.2500 ####[facility] [address] [place], [address] Chloride [Moles/Vol] 97 mmol/L Low 98-108 [facility] Comment on above: Performed By: #### L 500.2500 ####[facility] [address] [place], [address] CO2 [Moles/Vol] 19.7 mmol/L Low 21.0-32.0 [facility] Comment on above: Performed By: #### L 500.2500 ####[facility] [address] [place], [address] Creatinine [Mass/Vol] 1.30 mg/dL High 0.70-1.20 [facility] Comment on above: Performed By: #### L 500.2500 ####[facility] [address] [place], [address] GAP 20 High 5-15 [facility] Comment on above: Performed By: #### L 500.2500 ####[facility] [address] [place], [address] GFR/1.73 sq M.predicted among non-blacks MDRD (S/P/Bld) [Vol rate/Area] 41 mL/min/{1.73_m2} Low >60 [facility] Comment on above: Result Comment: mL/m in/1.73m2 CKD-EPI Creatinine Equation (2020) Performed By: #### L 500.2500 ####[facility] [address] [place], [address] Glucose [Mass/Vol] 99 mg/dL Normal 70-99 [facility] Comment on above: Performed By: #### L 500.2500 ####[facility] [address] [place], [address] Potassium [Moles/Vol] 4.3 mmol/L Normal 3.3-5.1 [facility] Comment on above: Performed By: #### L 500.2500 ####[facility] [address] [place], [address] Sodium [Moles/Vol] 137 mmol/L Normal 133-145 [facility] Comment on above: Performed By: #### L 500.2500 ####[facility] [address] [place], [address] Urea nitrogen [Mass/Vol] 35 mg/dL High 4-19 [facility] Comment on above: Performed By: #### L 500.2500 ####[facility] [address] [place], [address] Carbon dioxide, total [Moles /volume] in Central venous bloodOrdered By: Anabel Horne on 07-07-2024 CO2 [Moles/Vol] 19.7 mmol/L Low 21.0-32.0 [facility] Chloride assayOrdered By: Sugey Horne on 07-07-2024 Chloride [Moles/Vol] 97 mmol/L Low 98-108 [facility] GFR/1.73 sq M.predicted herve g non-blacks MDRD (S/P/Bld) [Vol rate/Area]Ordered By: Anabel Horne on 07-07-2024 Estimated GFR (MDRD) Non-Af Amer 41 Low >60 [facility] Comment on above: mL/min/1.73m2 CKD-EP I Creatinine Equation (2020) Glomerular filtration rate ( GFR) estimation/1.73 sq m using serum, plasma, or whole bOrdered By: Anabel Horne on 07-07-2024 GFR/1.73 sq M.predicted among non-blacks MDRD (S/P/Bld) [Vol rate/Area] 41 mL/min/{1.73_m2} Low >60 [facility] Comment on above: mL/min/1.73m2 CKD-EP I Creatinine Equation (2020) Potassium (Unsp spec) [Mass/ Vol]Ordered By: Anabel Horne on 07-07-2024 Potassium [Moles/Vol] 4.3 mmol/L 3.3-5.1 [facility] Potassium measurement (mass/ volume)Ordered By: Anabel Horne on 07-07-2024 Potassium (Unsp spec) [Mass/Vol] 4.3 mmol/L 3.3-5.1 [facility] Serum creatinine measurement (mass/volume)Ordered By: Anabel Horne on 07-07-2024 Creatinine [Mass/Vol] 1.30 mg/dL High 0.70-1.20 [facility] Serum glucose measurement (m ass/volume)Ordered By: Anabel Horne on 07-07-2024 Glucose [Mass/Vol] 99 mg/dL 70-99 [facility] Serum or plasma calcium julee urement (mass/volume)Ordered By: Anabel Horne on 07-07-2024 Calcium [Mass/Vol] 9.5 mg/dL 7.6-11.0 [facility] Serum or plasma urea nitroge n measurement (mass/volume)Ordered By: Anabel Horne on 07-07-2024 Urea nitrogen [Mass/Vol] 35 mg/dL High 4-19 [facility] Sodium levelOrdered By: Thien Horne on 07-07-2024 Sodium [Moles/Vol] 137 mmol/L 133-145 [facility] Carotid Duplex Ultrasoundon 07-03-2024 Carotid Duplex Ultrasound Normal [facility] Duplex ultrasound of carotid artery reportOrdered By: Virgil Her on 07-03-2024 Study report [facility] [address] [place] [address] Carotid Duplex Ultrasound 07/03/24 1246 MR#: [id number] Acct: [id number] Name: MICHAEL MEIER Rep #:[id number] : 1940 84 From: Virgil Souza [...] the left vertebral artery. Procedure Carotid Duplex 25252. This is a Carotid Duplex examination using B-mode, color flow and specral Doppler. Exam performed in department. VL/Carotid Duplex Ultrasound Interpretation Summary Mild (<50%) stenosis right extracranial internal carotid. Mild (<50%) stenosis left extracranial internal carotid. Patent and antegrade vertebrals bilaterally. Ordering Physician: Anabel Horne Referring Physician: Michael Puga Performed By: Ernestine Elliott, CHASE, RVT 07/03/241805 Date _ Virgil Her MD CC: Dr. Michael Puga DO; NIDA Katz ~ Date Dictated: 07/03/24 1246 Date Transcribed: 07/03/241805 Behavior Support Specialist: Signed [facility] Work Phone: [facility] 06-26-2024 [facility] Telephone (FAMPWS) MICHAEL MEIER ([id number]) 1940 F Date Time Provider Department 06/26/24 [facility] PU[facility] During your visit today, we recorded the following information about you: Amanda Pratt, RN 06/26/2024 2:48 PM Signed Patient calls to let provider know that she didn't start the Advair Diskus d/t side effects and the pulmonary testing didn't show asthma or COPD per patient. Patient also asking about amiodarone. Doesn't look like it is ordered by provider but patient reports provider was going to check with [facility] about taking it since it can cause SOB. 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 DO Rodrigo Dow Brittany L, MA 06/28/2024 11:40 AM Signed Printed telephone encounter with cover sheet AND faxed to Dr. Hickey [phone]. Advised on cover sheet to respond with lace and textiles restorer's recommendations. Will wait for fax back. Renea [...] SULFA (SULFONAMIDE ANTIBIOTICS) 03/17/2001 Comments: imani VICODIN (HYDROCODONE-ACETAMINO PHE*01/08/2005 5 - Intolerance Comments: dizzy,nausea,vomiting, headache ZITHROMAX (AZITHROMYCIN) 05/20/2017 5 - Intolerance Date [...] (more content not included)... Normal [facility] CNOVon 06-21-2024 CNOV Office Visit (FAMPWS ) ALEXANDRUMICHAEL HOWARD ([id number]) 1940 F Date Time Provider Department 06/21/24 5:20 PM MICHAEL PUGA [facility] During your visit today, we recorded the following information about you: Temperature Pulse Respiration Blood pressure 97.7 degrees 64/minute 20/minute 160/70 Weight 100.2 kg Michael Puga DO 06/27/2024 4:11 PM Signed CC: Michael [...] and albuterol. She has been seen by Bridges Supervisor as well as Dr. Hickey/Powderer at [facility] for follow up after discharge home. [...] FEM PROSTC AGRFT/ALGRFT Left 07/2016 [facility] CONDYLEANDPLATU MEDIALANDLAT COMPARTMENTS 11/15/2009 Knee replacement, total -[facility]RP KNE CONDYLEANDPLATU MEDIALANDLAT COMPARTMENTS 12/30/2009 Right knee replaced COLONOSCOPY FLX DX W/COLLJ SPEC WHEN PFRMD 06/29/2017 Colonoscopy EGD 10/17/2020 EGD W/O [facility] SPEC VARICIES INJ 01/08/2022 EGD W/O [facility] SPEC VARICIES INJ 03/31/2024 Lito ESOPHAGOGASTRODUODENOS COPY TRANSORAL DIAGNOSTIC 11/29/2000 EGD ESOPHAGOGASTRODUODENOS COPY TRANSORAL DIAGNOSTIC 06/29/2017 EGD JOINT REPLACEMENT HX [...] - Mo (more content not included)... Normal [facility] 06-06-2024 [facility] Telephone [facility] MICHAEL MEIER ([id number]) 1940 F Date Time Provider Department 06/06/24 MICHAEL PUGAPWS During your visit today, we recorded the following information about you: Constance Ervin LPN 06/06/2024 11:54 AM Signed Pt calls for lab results done at [facility] on 06/02/24. Results are scanned in [...] SULFA (SULFONAMIDE ANTIBIOTICS) 03/17/2001 Comments: imani VICODIN (HYDROCODONE-ACETAMINO PHE*01/08/2005 5 - Intolerance Comments: dizzy,nausea,vomiting, headache ZITHROMAX (AZITHROMYCIN) 05/20/2017 5 - Intolerance Date [...] SKIN FACE NEC [D23.30] 01/20/2007 01/09/2012 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 01/09/2012 DYSMETABOLIC SYNDROME X [E88.810] 07/12/2007 A-fib (HCC) [I48.91] 10/08/2010 03/11/2015 Personal history of malignant melanoma of skin *02/08/2011 Actinic skin damage [L57.8] 01/09/2012 03/11/2015 Solar Lentigines [L81.4] 01/09/2012 03/11/2015 Surgical Scars [L90.5] 01/09/2012 03/11/2015 Irriated//Inflamed Seborrheic Keratoses [L82.0] 12/01/2013 03/11/2015 Other Seborrheic Keratoses [L82.1] 12/01/2013 03/11/2015 Xerosis cutis [L85.3] 12/01/2013 (more content not included)... Normal [facility] Albumin to globulin ratioOrd ered By: Michael Puga on 06-02-2024 Albumin/Globulin [Mass ratio] 1.0 {ratio} 0.9-2.4 [facility] Bilirubin, totalOrdered By: Michael Puga on 06-02-2024 Bilirubin [Mass/Vol] 0.60 mg/dL 0.20-1.00 [facility] Comment on above: For patients on eltr ombopag therapy, use of Dimension [place] TBIL is not recommended. Blood urea nitrogen (BUN)/cr eatinine ratioOrdered By: Michael Puga on 06-02-2024 Urea nitrogen/Creatinine [Mass ratio] 33.2 mg/mg High 10-20 [facility] Carbon dioxide measurementOr dered By: Michael Puga on 06-02-2024 CO2 [Moles/Vol] 29.0 mmol/L 21.0-32.0 [facility] Chloride measurementOrdered By: Michael Puga on 06-02-2024 Chloride [Moles/Vol] 99 mmol/L 98-107 [facility] Comprehensive Metabolic Prof ilon 06-02-2024 Albumin [Mass/Vol] 3.3 g/dL Normal 3.2-5.0 [facility] Comment on above: Performed By: #### L 500.4050 ####[facility] [address] [place], [address] Albumin/Globulin [Mass ratio] 1.0 {ratio} Normal 0.9-2.4 [facility] Comment on above: Performed By: #### L 500.4050 ####[facility] [address] [place], [address] ALK P 85 U/L Normal 45-117 [facility] Comment on above: Performed By: #### L 500.4050 ####[facility] [address] [place], [address] ALT [Catalytic activity/Vol] 84 U/L High 13-56 [facility] Comment on above: Performed By: #### L 500.4050 ####[facility] [address] [place], [address] AST [Catalytic activity/Vol] 51 U/L High 15-37 [facility] Comment on above: Performed By: #### L 500.4050 ####[facility] [address] [place], [address] Bilirubin [Mass/Vol] 0.60 mg/dL Normal 0.20-1.00 [facility] Comment on above: Result Comment: For patients on eltrombopag therapy, use of Dimension [place] TBIL is not recommended. Performed By: #### L 500.4050 ####[facility] [address] [place], [address] BUN/CRE 33.2 RATIO High 10-20 [facility] Comment on above: Performed By: #### L 500.4050 ####[facility] [address] [place], [address] CA,Total 9.1 mg/dL Normal 8.5-10.1 [facility] Comment on above: Performed By: #### L 500.4050 ####[facility] [address] [place], [address] Chloride [Moles/Vol] 99 mmol/L Normal 98-107 [facility] Comment on above: Performed By: #### L 500.4050 ####[facility] [address] [place], [address] CO2 [Moles/Vol] 29.0 mmol/L Normal 21.0-32.0 [facility] Comment on above: Performed By: #### L 500.4050 ####[facility] [address] [place], [address] Creatinine [Mass/Vol] 0.87 mg/dL Normal 0.55-1.02 [facility] Comment on above: Result Comment: The validity of the calculated GFR GFRAA in patients over70 years has not been determined. Clinical correlation isessential. Performed By: #### L 500.4050 ####[facility] [address] [place], [address] EST GFR - AA 80 mL/min Normal >60 [facility] Comment on above: Result Comment: Afri can Croatian GFR Calc Performed By: #### L 500.4050 ####[facility] [address] [place], [address] GAP 6 Normal 5-15 [facility] Comment on above: Performed By: #### L 500.4050 ####[facility] [address] [place], [address] GFR/1.73 sq M.predicted among non-blacks MDRD (S/P/Bld) [Vol rate/Area] 66 mL/min/{1.73_m2} Normal >60 [facility] Comment on above: Result Comment: Non- GFR Calc Performed By: #### L 500.4050 ####[facility] [address] [place], [address] Globulin (S) [Mass/Vol] 3.4 g/dL Normal 2.2-4.2 [facility] Comment on above: Performed By: #### L 500.4050 ####[facility] [address] [place], [address] Glucose [Mass/Vol] 99 mg/dL Normal 74-106 [facility] Comment on above: Performed By: #### L 500.4050 ####[facility] [address] [place], [address] Potassium [Moles/Vol] 5.1 mmol/L Normal 3.5-5.1 [facility] Comment on above: Performed By: #### L 500.4050 ####[facility] [address] [place], [address] Sodium [Moles/Vol] 133 mmol/L Low 136-145 [facility] Comment on above: Performed By: #### L 500.4050 ####[facility] [address] [place], [place], [address] T PROT 6.7 g/dL Normal 6.4-8.2 [facility] Comment on above: Performed By: #### L 500.4050 ####[facility] [address] [place], [place], [address] Urea nitrogen [Mass/Vol] 29 mg/dL High 7-18 [facility] Comment on above: Performed By: #### L 500.4050 ####[facility] [address] [place], [place], [address] Estimated glomerular filtrat ion rate (GFR) AmericanOrdered By: Michael Puga on 06-02-2024 Estimated GFR (MDRD) Amer 80 mL/min >60 [facility] Comment on above: GFR Calc Glomerular filtration rate ( GFR) estimationOrdered By: Michael Puga on 06-02-2024 Estimated GFR (MDRD) Non-Af Amer 66 mL/min >60 [facility] Comment on above: Non- GFR Calc Glucose measurementOrdered B y: Michael Puga on 06-02-2024 Glucose [Mass/Vol] 99 mg/dL 74-106 [facility] Laboratory - Chemistry and C hemistry - challengeOrdered By: Michael Puga on 06-02-2024 AST [Catalytic activity/Vol] 51 U/L High 15-37 [facility] Potassium measurementOrdered By: Michael Puga on 06-02-2024 Potassium [Moles/Vol] 5.1 mmol/L 3.5-5.1 [facility] Serum anion gap measurementO rdered By: Michael Puga on 06-02-2024 Anion gap [Moles/Vol] 6 mmol/L 5-15 [facility] Serum globulin measurementOr dered By: Michael Puga on 06-02-2024 Globulin (S) [Mass/Vol] 3.4 g/dL 2.2-4.2 [facility] Serum or plasma alanine sprague otransferase (ALT) measurementOrdered By: Michael Puga on 06-02-2024 ALT [Catalytic activity/Vol] 84 U/L High 13-56 [facility] Serum or plasma albumin julee urement (mass/volume)Ordered By: Michael Puga on 06-02-2024 Albumin [Mass/Vol] 3.3 g/dL 3.2-5.0 [facility] Serum or plasma alkaline rachel sphatase measurementOrdered By: Michael Puga on 06-02-2024 ALP [Catalytic activity/Vol] 85 U/L 45-117 [facility] Serum or plasma calcium julee urement (mass/volume)Ordered By: Michael Puga on 06-02-2024 Calcium [Mass/Vol] 9.1 mg/dL 8.5-10.1 [facility] Serum or plasma creatinine m easurement (mass/volume)Ordered By: Michael Puga on 06-02-2024 Creatinine [Mass/Vol] 0.87 mg/dL 0.55-1.02 [facility] Comment on above: The validity of the calculated GFR & GFRAA in patients over 70 years has not been determined. Clinical correlation is essential. Serum or plasma urea nitroge n measurement (mass/volume)Ordered By: Michael Puga on 06-02-2024 Urea nitrogen [Mass/Vol] 29 mg/dL High 7-18 [facility] Sodium levelOrdered By: Susanna Puga on 06-02-2024 Sodium [Moles/Vol] 133 mmol/L Low 136-145 [facility] Total proteinOrdered By: Vance Puga on 06-02-2024 Protein [Mass/Vol] 6.7 g/dL 6.4-8.2 [facility] Cardiology Visit Reporton Cardiology Visit Report Normal [facility] Pacemaker Checkon 06-01-2024 Pacemaker Check Normal [facility] CNPNon 05-30-2024 CNPN Telephone (FAMWS) MICHAEL MEIER ([id number]) 1940 F Date Time Provider Department 05/30/24 MICHAEL PUGA During your visit today, we recorded the following information about you: Loli Adamson, GLYNN 05/30/2024 8:31 AM Signed Pt reports she had a CMP done at [facility] on 05/25/24 to check her kidneys and glucose. We received a BNP and CBC from [facility] under labs. Do not see a CMP. Patient asking Key to review and advise. Key Portillo APRN.CARMELINA 05/31/2024 7:36 AM Signed I don't see CMP results either. Can we call [facility] and confirm this was drawn. If not, have her get it done. Thank you, Key Portillo APRN.Amanda Heath RN 05/31/2024 10:09 AM Signed Qing with [facility] HH calls in regards to below. CMP was not completed. Re-faxed ordered to [facility] lab and Qing will add a nurse visit for this week to collect specimen as soon as possible. GLYNN Montiel, Key Davidson APRN.CARMELINA 05/31/2024 10:45 AM Signed Noted. Thank you, Key Portillo APRN.BRIDGE BUILDER Allergies As of Date: 05/30/2024 Noted Allergy Reaction CIPROFLOXACIN 09/05/2018 2 - Rash DEMEROL (MEPERIDINE (PF)) 02/06/2011 11 - Vomiting OPIOIDS - MORPHINE ANALOGUES 03/17/2001 5 - Intolerance Comments: nausea, dizzy, sees things OPIOIDS-MEPERIDINE AND RELATED 02/17/2001 Comments: nausea/vomiting PENICILLIN G 02/17/2001 Comments: imani PRAVACHOL (PRAVASTATIN SODIUM) 03/09/2016 14 - Other: See Comments Comments: Leg cramps SULFA (SULFONAMIDE ANTIBIOTICS) 03/17/2001 Comments: imani VICODIN (HYDROCODONE-ACETAMINO PHE*01/08/2005 5 - Intolerance Comments: dizzy,nausea,vomiting, headache ZITHROMAX (AZITHROMYCIN) 05/20/2017 5 - Intolerance Date [...] SKIN FACE NEC [D23.30] 01/20/2007 01/09/2012 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 01/09/2012 DYSMETABOLIC SYNDROME X [E88.810] 07/12/2007 A-fib (HCC) [I48.91] 10/08/2010 03/11/2015 Personal history of malignant melanoma of skin *02/08/2011 Actinic skin damage [L57.8] 01/09/2012 03/11/2015 Solar Lentig (more content not included)... Normal [facility] BNP (brain natriuretic pepti de measurement)Ordered By: Michael Puga on 05-25-2024 Natriuretic peptide B (Bld) [Mass/Vol] 33.8 pg/mL 0-100 [facility] BNP,B-Type NATRIURETIC PEPTI Kenyatta 05-25-2024 Natriuretic peptide B (Bld) [Mass/Vol] 33.8 pg/mL Normal 0-100 [facility] Comment on above: Performed By: #### L 100.0500, L503.6620 ####[facility] [address] [place], [address] CBC-Complete Blood Cnt No Di ffon 05-25-2024 Erythrocyte distribution width (RBC) [Ratio] 15.5 % High 11.6-14.6 [facility] Comment on above: Performed By: #### L 100.0500, L503.6620 ####[facility] [address] [place], [address] Hematocrit (Bld) [Volume fraction] 37.3 % Normal 37-47 [facility] Comment on above: Performed By: #### L 100.0500, L503.6620 ####[facility] [address] [place], [address] Hemoglobin (Bld) [Mass/Vol] 12.6 g/dL Normal 12.0-15.0 [facility] Comment on above: Performed By: #### L 100.0500, L503.6620 ####[facility] [address] [place], [address] MCH (RBC) [Entitic mass] 28.4 pg Normal 27.0-32.0 [facility] Comment on above: Performed By: #### L 100.0500, L503.6620 ####[facility] [address] [place], [address] MCHC (RBC) [Mass/Vol] 33.8 g/dL Normal 32-36 [facility] Comment on above: Performed By: #### L 100.0500, L503.6620 ####[facility] [address] [place], [address] MCV (RBC) [Entitic vol] 84.0 fL Normal 81-99 [facility] Comment on above: Performed By: #### L 100.0500, L503.6620 ####[facility] [address] [place], [address] Platelet mean volume (Bld) [Entitic vol] 11.1 fL Normal 6.2-12.0 [facility] Comment on above: Performed By: #### L 100.0500, L503.6620 ####[facility] [address] [place], [address] Platelets (Bld) [#/Vol] 256 10*3/uL Normal 150-450 [facility] Comment on above: Performed By: #### L 100.0500, L503.6620 ####[facility] [address] [place], [address] RBC (Bld) [#/Vol] 4.44 10*6/uL Normal 4.2-5.4 [facility] Comment on above: Performed By: #### L 100.0500, L503.6620 ####[facility] [address] [place], [address] RDW SD 47.2 fl High 35.1-43.9 [facility] Comment on above: Performed By: #### L 100.0500, L503.6620 ####[facility] [address] [place], [address] WBC (Bld) [#/Vol] 10.3 10*3/uL Normal 4.4-11.0 [facility] Comment on above: Performed By: #### L 100.0500, L503.6620 ####[facility] [address] [place], [address] Priscila 05-25-2024 CARMELINAN Telephone (FAMPWS) MICHAEL MEIER ([id number]) 1940 F Date Time Provider Department 05/25/24 MICHAEL PUGA During your visit today, we recorded the following information about you: July Marcano RN 05/25/2024 9:51 AM Signed Bhavna MAKI CM with [facility] HH called in and reports Pt had been taken off her Hydrochlorothiazide per Cardiology for a while, but the last time she was in the hospital she was put back on 12.5 mg. She states the Pt is going to need a script called in if she is to be taking them to [facility]. I told her I didn't see [...] morning. Please call and advise. Key Portillo APRN.CARMELINA 05/25/2024 10:05 AM Signed I would like patient to take medication and then recheck BP. BP was WNL at appointment on 05/11. I see from discharge instructions from [facility] that she was taking HCTZ at [...] mouth once daily. Authorizing Provider: KEY PORTILLO APRN.Marisol Welsh LPN 05/25/2024 10:17 AM Signed Left detailed [...] SULFA (SULFONAMIDE ANTIBIOTICS) 03/17/2001 Comments: hives VICODIN (HYDROCODONE-ACETAMINO PHE*01/08/2005 5 - Intolerance Comments: dizzy,nausea,vomiting, headache ZITHROMAX (AZITHROMYCIN) 05/20/2017 5 - Intolerance Date Reviewed: 05/11/2024 Reviewed by: Marisol Cano LPN - Fully Assessed Reason for Visit: Patient Update [1234] Medication Question [9768] Order(s):hydroCHLOROth iazide 12.5 mg capsuleTake 1 capsule by mouth [...] (more content not included)... Normal [facility] Erythrocyte distribution wid th ratioOrdered By: Michael Puga on 05-25-2024 Erythrocyte distribution width (RBC) [Ratio] 15.5 % High 11.6-14.6 [facility] Erythrocyte distribution wid th standard deviationOrdered By: Michael Puga on 05-25-2024 Erythrocyte distribution width (RBC) [Entitic vol] 47.2 fL High 35.1-43.9 [facility] Hematocrit Auto (Bld) [Volum e fraction]Ordered By: Michael Puga on 05-25-2024 Hematocrit (Bld) [Volume fraction] 37.3 % 37-47 [facility] Hemoglobin measurementOrdere d By: Michael Puga on 05-25-2024 Hemoglobin (Bld) [Mass/Vol] 12.6 g/dL 12.0-15.0 [facility] MCV (mean corpuscular volume ) determinationOrdered By: Michael Puga on 05-25-2024 MCV (RBC) [Entitic vol] 84.0 fL 81-99 [facility] Mean corpuscular hemoglobin (MCH) determinationOrdered By: Michael Puga on 05-25-2024 MCH (RBC) [Entitic mass] 28.4 pg 27.0-32.0 [facility] Mean corpuscular hemoglobin concentration (MCHC) determinationOrdered By: Michael Puga on 05-25-2024 MCHC (RBC) [Mass/Vol] 33.8 g/dL 32-[address] [facility] Mean platelet volume determi nationOrdered By: Michael Puga on 05-25-2024 Platelet mean volume (Bld) [Entitic vol] 11.1 fL 6.2-12.0 [facility] Platelet countOrdered By: Nellie Puga on 05-25-2024 Platelets (Bld) [#/Vol] 256 10*3/uL 150-450 [facility] RBC Auto (Bld) [#/Vol]Ordere d By: Michael Puga on 05-25-2024 RBC (Bld) [#/Vol] 4.44 10*6/uL 4.2-5.4 [facility] White blood cell (WBC) count Ordered By: Michael Puga on 05-25-2024 WBC (Bld) [#/Vol] 10.3 10*3/uL 4.4-11.0 [facility] Bilirubin, Directon 05-19-19 25 Bilirubin.direct [Mass/Vol] 0.28 mg/dL Normal 0.00-0.30 [facility] Comment on above: Performed By: #### L 500.4050, L100.0500, L501.4700, L503.6620 ####[facility] [address] [place], [address] Priscila 05-19-2024 LORRI Telephone ([facility]) MICHAEL MEIER ([id number]) 1940 F Date Time Provider Department 05/19/24 MICHAEL PUGA During your visit today, we recorded the following information about you: Chloe Castro LPN 05/19/2024 12:22 PM Signed Pt calling for results of lab work she had done in her home yesterday, Results are I Epic. Please advise pt. CAROLINE Ramirez Alyson Taylor, APRN.BRIDGE BUILDER 05/19/2024 2:40 PM Signed Please let patient [...] 05/22/2024 12:31 PM Signed Marifer nurse with [facility] calling regarding recently ordered lab orders. Information provided and lab orders faxed to [facility]. 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 Normal [facility] BNP (brain natriuretic pepti de measurement)Ordered By: Michael Puga on 05-18-2024 Natriuretic peptide B (Bld) [Mass/Vol] 38.6 pg/mL 0-100 [facility] BNP,B-Type NATRIURETIC PEPTI Kenyatta 05-18-2024 Natriuretic peptide B (Bld) [Mass/Vol] 38.6 pg/mL Normal 0-100 [facility] Comment on above: Performed By: #### L 500.4050, L100.0500, L501.4700, L503.6620 ####[facility] [address] [place], [address] Bilirubin directOrdered By: Michael Puga on 05-18-2024 Bilirubin.direct [Mass/Vol] 0.28 mg/dL 0.00-0.30 [facility] CBC-Complete Blood Cnt No Di ffon 05-18-2024 Erythrocyte distribution width (RBC) [Ratio] 15.9 % High 11.6-14.6 [facility] Comment on above: Performed By: #### L 500.4050, L100.0500, L501.4700, L503.6620 ####[facility] [address] [place], [address] Hematocrit (Bld) [Volume fraction] 35.5 % Low 37-47 [facility] Comment on above: Performed By: #### L 500.4050, L100.0500, L501.4700, L503.6620 ####[facility] [address] [place], [address] Hemoglobin (Bld) [Mass/Vol] 11.6 g/dL Low 12.0-15.0 [facility] Comment on above: Performed By: #### L 500.4050, L100.0500, L501.4700, L503.6620 ####[facility] [address] [place], [address] MCH (RBC) [Entitic mass] 27.8 pg Normal 27.0-32.0 [facility] Comment on above: Performed By: #### L 500.4050, L100.0500, L501.4700, L503.6620 ####[facility] [address] [place], [address] MCHC (RBC) [Mass/Vol] 32.7 g/dL Normal 32-36 [facility] Comment on above: Performed By: #### L 500.4050, L100.0500, L501.4700, L503.6620 ####[facility] [address] [place], [address] MCV (RBC) [Entitic vol] 84.9 fL Normal 81-99 [facility] Comment on above: Performed By: #### L 500.4050, L100.0500, L501.4700, L503.6620 ####[facility] [address] [place], [address] Platelet mean volume (Bld) [Entitic vol] 11.0 fL Normal 6.2-12.0 [facility] Comment on above: Performed By: #### L 500.4050, L100.0500, L501.4700, L503.6620 ####[facility] [address] [place], [address] Platelets (Bld) [#/Vol] 263 10*3/uL Normal 150-450 [facility] Comment on above: Performed By: #### L 500.4050, L100.0500, L501.4700, L503.6620 ####[facility] [address] [place], [address] RBC (Bld) [#/Vol] 4.18 10*6/uL Low 4.2-5.4 [facility] Comment on above: Performed By: #### L 500.4050, L100.0500, L501.4700, L503.6620 ####[facility] [address] [place], [address] RDW SD 48.9 fl High 35.1-43.9 [facility] Comment on above: Performed By: #### L 500.4050, L100.0500, L501.4700, L503.6620 ####[facility] [address] [place], [address] WBC (Bld) [#/Vol] 9.2 10*3/uL Normal 4.4-11.0 [facility] Comment on above: Performed By: #### L 500.4050, L100.0500, L501.4700, L503.6620 ####[facility] [address] [place], [address] Comprehensive Metabolic Prof ilon 05-18-2024 Albumin [Mass/Vol] 3.4 g/dL Normal 3.2-5.0 [facility] Comment on above: Performed By: #### L 500.4050, L100.0500, L501.4700, L503.6620 ####[facility] [address] [place], [address] Albumin/Globulin [Mass ratio] 1.1 {ratio} Normal 0.9-2.4 [facility] Comment on above: Performed By: #### L 500.4050, L100.0500, L501.4700, L503.6620 ####[facility] [address] [place], [address] ALK P 77 U/L Normal 45-117 [facility] Comment on above: Performed By: #### L 500.4050, L100.0500, L501.4700, L503.6620 ####[facility] [address] [place], [address] ALT [Catalytic activity/Vol] 30 U/L Normal 13-56 [facility] Comment on above: Performed By: #### L 500.4050, L100.0500, L501.4700, L503.6620 ####[facility] [address] [place], [address] AST [Catalytic activity/Vol] 25 U/L Normal 15-37 [facility] Comment on above: Performed By: #### L 500.4050, L100.0500, L501.4700, L503.6620 ####[facility] [address] [place], [address] Bilirubin [Mass/Vol] 1.00 mg/dL Normal 0.20-1.00 [facility] Comment on above: Result Comment: For patients on eltrombopag therapy, use of Dimension [place] TBIL is not recommended. Performed By: #### L 500.4050, L100.0500, L501.4700, L503.6620 ####[facility] [address] [place], [address] BUN/CRE 26.7 RATIO High 10-20 [facility] Comment on above: Performed By: #### L 500.4050, L100.0500, L501.4700, L503.6620 ####[facility] [address] [place], [address] CA,Total 9.0 mg/dL Normal 8.5-10.1 [facility] Comment on above: Performed By: #### L 500.4050, L100.0500, L501.4700, L503.6620 ####[facility] [address] [place], [address] Chloride [Moles/Vol] 90 mmol/L Low 98-107 [facility] Comment on above: Performed By: #### L 500.4050, L100.0500, L501.4700, L503.6620 ####[facility] [address] [place], [address] CO2 [Moles/Vol] 29.0 mmol/L Normal 21.0-32.0 [facility] Comment on above: Performed By: #### L 500.4050, L100.0500, L501.4700, L503.6620 ####[facility] [address] [place], [address] Creatinine [Mass/Vol] 1.05 mg/dL High 0.55-1.02 [facility] Comment on above: Result Comment: The validity of the calculated GFR GFRAA in patients over70 years has not been determined. Clinical correlation isessential. Performed By: #### L 500.4050, L100.0500, L501.4700, L503.6620 ####[facility] [address] [place], [address] EST GFR - AA 64 mL/min Normal >60 [facility] Comment on above: Result Comment: Afri can Croatian GFR Calc Performed By: #### L 500.4050, L100.0500, L501.4700, L503.6620 ####[facility] [address] [place], [address] GAP 9 Normal 5-15 [facility] Comment on above: Performed By: #### L 500.4050, L100.0500, L501.4700, L503.6620 ####[facility] [address] [place], [address] GFR/1.73 sq M.predicted among non-blacks MDRD (S/P/Bld) [Vol rate/Area] 53 mL/min/{1.73_m2} Low >60 [facility] Comment on above: Result Comment: Non- GFR Calc Performed By: #### L 500.4050, L100.0500, L501.4700, L503.6620 ####[facility] [address] [place], [address] Globulin (S) [Mass/Vol] 3.1 g/dL Normal 2.2-4.2 [facility] Comment on above: Performed By: #### L 500.4050, L100.0500, L501.4700, L503.6620 ####[facility] [address] [place], [address] Glucose [Mass/Vol] 99 mg/dL Normal 74-106 [facility] Comment on above: Performed By: #### L 500.4050, L100.0500, L501.4700, L503.6620 ####[facility] [address] [place], [address] Potassium [Moles/Vol] 4.0 mmol/L Normal 3.5-5.1 [facility] Comment on above: Performed By: #### L 500.4050, L100.0500, L501.4700, L503.6620 ####[facility] [address] [place], [address] Sodium [Moles/Vol] 128 mmol/L Low 136-145 [facility] Comment on above: Performed By: #### L 500.4050, L100.0500, L501.4700, L503.6620 ####[facility] [address] [place], [address] T PROT 6.5 g/dL Normal 6.4-8.2 [facility] Comment on above: Performed By: #### L 500.4050, L100.0500, L501.4700, L503.6620 ####[facility] [address] [place], [address] Urea nitrogen [Mass/Vol] 28 mg/dL High 7-18 [facility] Comment on above: Performed By: #### L 500.4050, L100.0500, L501.4700, L503.6620 ####[facility] [address] [place], [address] Erythrocyte distribution wid th ratioOrdered By: Michael Puga on 05-18-2024 Erythrocyte distribution width (RBC) [Ratio] 15.9 % High 11.6-14.6 [facility] Erythrocyte distribution wid th standard deviationOrdered By: Michael Puga on 05-18-2024 Erythrocyte distribution width (RBC) [Entitic vol] 48.9 fL High 35.1-43.9 [facility] Hematocrit Auto (Bld) [Volum e fraction]Ordered By: Michael Puga on 05-18-2024 Hematocrit (Bld) [Volume fraction] 35.5 % Low 37-47 [facility] Hemoglobin measurementOrdere d By: Michael Puga on 05-18-2024 Hemoglobin (Bld) [Mass/Vol] 11.6 g/dL Low 12.0-15.0 [facility] MCV (mean corpuscular volume ) determinationOrdered By: Michael Puga on 05-18-2024 MCV (RBC) [Entitic vol] 84.9 fL 81-99 [facility] Mean corpuscular hemoglobin (MCH) determinationOrdered By: Michael Puga on 05-18-2024 MCH (RBC) [Entitic mass] 27.8 pg 27.0-32.0 [facility] Mean corpuscular hemoglobin concentration (MCHC) determinationOrdered By: Michael Puga on 05-18-2024 MCHC (RBC) [Mass/Vol] 32.7 g/dL 32-36 [facility] Mean platelet volume determi nationOrdered By: Michael Puga on 05-18-2024 Platelet mean volume (Bld) [Entitic vol] 11.0 fL 6.2-12.0 [facility] Platelet countOrdered By: Nellie Puga on 05-18-2024 Platelets (Bld) [#/Vol] 263 10*3/uL 150-450 [facility] RBC Auto (Bld) [#/Vol]Ordere d By: Michael Puga on 05-18-2024 RBC (Bld) [#/Vol] 4.18 10*6/uL Low 4.2-5.4 [facility] White blood cell (WBC) count Ordered By: Michael Puga on 05-18-2024 WBC (Bld) [#/Vol] 9.2 10*3/uL 4.4-11.0 [facility] CNPChasity 05-16-2024 [place] Telephone ([facility]) MICHAEL MEIER ([id number]) 1940 F Date Time Provider Department 05/16/24 MICHAEL PUGA During your visit today, we recorded the following information about you: Amanda Pratt RN 05/16/2024 10:26 AM Signed Bhavna with [facility] calls to report duplicate therapy between lasix and spironolactone and lasix and hydralazine. Bhavna is asking if provider wants all medications continued. Hydralazine and Spironolactone are on current medication list but prescription not sent to pharmacy. Please review and advise. Bhavna is requesting a call back at [phone]. GLYNN Montiel Jordan L, 05/17/2024 9:02 AM Signed Please clarify with pharmacy and patient her current diuretic/BLOOD PRESSURE medications that she is picking up and taking Macarena Rodriguez LPN 05/17/2024 9:50 AM Signed Phoned [facility] pharmacy with clarification on current meds. Spironolactone 25 mg daily was prescribed by the [facility] also hydralazine 25 mg was prescribed by Kristal Watkins [facility]. Lasix 20 mg was just prescribed by Key Portillo, then Lasix 40 mg was prescribed by [facility] May 02. Left message with Bhavna [facility] about above information. Please review and [...] Verbalizes understanding. Pt is scheduled to see [facility] on 06/01/24. Per Alondra Portillo's OV note on 05/11/24, pt was to schedule a 6 wk follow up which is not scheduled. Does pt need to come to PCP office in addition to [facility] appt? Pt due for labwork as labs drawn on 05/11/24 showed significant decrease in kidney function. Asked pt to get it drawn in the morning if she can. Pt will go to [place] and get it drawn in the morning. Michael Puga DO 05/17/2024 6:12 PM Signed Agree with need for lab work Agree with need for follow up in Primary care but would recommend that this visit is after the visit in Cardiology DO Hossein Dow Barbara, GLYNN 05/17/2024 6:21 PM Signed LM for pt [...] after her labs are resulted. July Marcano, RN 05/18/2024 10:04 AM Signed Bhavna MAKI [facility] called in and reports Pt [...] labs she was able to drawn. Key Portillo, MIRIAN.BRIDGE BUILDER 05/18/2024 10:50 AM Signed Most important is CMP to have drawn if able. Agree with below. Pt needs to discontinue lasix all together. This was ordered by [facility] after recent admission for new onset CHF exacerbation. Initially ordered for 40 mg daily, I decreased to 20 mg daily after kidney function was so poor and told pt to repeat labs in 5 days with plan to discontinue all together if swelling and weight gain remained stable with decreased. Thank you, Key Bond (more content not included)... Normal [facility] 05-12-2024 [facility] Telephone ([facility]) MICHAEL MEIER ([id number]) 1940 F Date Time Provider Department 05/12/24 [...] that time. Pt verbalizes understanding. Key Portillo APRN.BRIDGE BUILDER 05/12/2024 2:23 PM Signed Agree with below. We are repeating BNP lab work in 5-7 days as well to check for this. Thank you, Key Portillo APRN.BRIDGE BUILDER Allergies As of Date: 05/12/2024 Noted Allergy Reaction CIPROFLOXACIN 09/05/2018 2 - Rash DEMEROL (MEPERIDINE (PF)) 02/06/2011 11 - Vomiting OPIOIDS - MORPHINE ANALOGUES 03/17/2001 5 - Intolerance Comments: nausea, dizzy, sees things OPIOIDS-MEPERIDINE AND RELATED 02/17/2001 Comments: nausea/vomiting PENICILLIN G 02/17/2001 Comments: imani PRAVACHOL (PRAVASTATIN SODIUM) 03/09/2016 14 - Other: See Comments Comments: Leg cramps SULFA (SULFONAMIDE ANTIBIOTICS) 03/17/2001 Comments: imani VICODIN (HYDROCODONE-ACETAMINO PHE*01/08/2005 5 - Intolerance Comments: dizzy,nausea,vomiting, headache ZITHROMAX (AZITHROMYCIN) 05/20/2017 5 - Intolerance Date Reviewed: 05/11/2024 Reviewed by: Marisol Cano LPN - Fully Assessed Reason for Visit: Patient Question [1477] Prescriptions as of 05/12/2024 - furosemide (LASIX) [...] SKIN FACE NEC [D23.30] 01/20/2007 01/09/2012 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 01/09/2012 DYSMETABOLIC SYNDROME X [E88.810] 07/12/2007 A-fib (HCC) [I48.91] 10/08/2010 03/11/2015 Personal history of malignant melanoma of skin *02/08/2011 Actinic skin damage [L57.8] 01/09/2012 03/11/2015 Solar Lentigines [L81.4] 01/09/2012 03/11/2015 Surgical Scars [L90.5] 01/09/2012 03/11/2015 Irriated//Inflamed Seborrheic Keratoses [L82.0] 12/01/2013 (more content not included)... [facility] ([id number]) 1940 F Date Time Provider Department 05/12/24 [facility] During your visit today, we recorded the following information about you: Key Portillo APRN.BRIDGE BUILDER 05/12/2024 12:27 PM Addendum Please call patient [...] decreasing lasix. Thank you, Key Portillo APRN.CARMELINA Cano Marisolholly Ennis LPN 05/12/2024 12:48 PM Signed Spoke with pt gave information provided. Pt voices understanding. She states she spoke with you about some ativan yesterday in appointment but nothing was at [facility] when she went. Key Portillo APRN.CARMELINA 05/12/2024 12:57 PM Signed I can send [...] needed (anxiety attack). Authorizing Provider: KEY PORTILLO APRN.BRIDGE BUILDER PDMP website checked and validated. All prescriptions [...] SULFA (SULFONAMIDE ANTIBIOTICS) 03/17/2001 Comments: imani VICODIN (HYDROCODONE-ACETAMINO PHE*01/08/2005 5 - Intolerance Comments: dizzy,nausea,vomiting, headache ZITHROMAX (AZITHROMYCIN) 05/20/2017 5 - Intolerance Date [...] 0 HEPATIC FUNCTION PNL [SQHFP] Order #: [id number] FUTURE COMPLETE BLOOD COUNT AND DIFFERENTIAL [SQCBCDIF] Order #: [id number] FUTURE NT PRO BNP [SQNTBNP] Order #: [id number] FUTURE LORazepam (ATIVAN) 0.5 mgTake 1 tablet [...] (more content not included)... Normal [facility] CBC W Auto Differential pane l (Bld)on 05-11-2024 Basophils (Bld) [#/Vol] 0.09 10*3/uL [facility] Basophils/100 WBC (Bld) 0.7 % [facility] Differential cell count method Nom (Bld) Auto [facility] Eosinophils (Bld) [#/Vol] 0.21 10*3/uL [facility] Eosinophils/100 WBC (Bld) 1.7 % [facility] Erythrocyte distribution width (RBC) [Ratio] 16.6 % High 11.5 - 15.0 % [facility] Hematocrit (Bld) [Volume fraction] 42.0 % 36.0 - 46.0 % [facility] Hemoglobin (Bld) [Mass/Vol] 13.4 g/dL 11.5 - 15.5 g/dL [facility] Immature granulocytes (Bld) [#/Vol] 0.05 10*3/uL [facility] Immature granulocytes/100 WBC (Bld) 0.4 % [facility] Interpretation and review of laboratory results Abnormal [facility] Lymphocytes (Bld) [#/Vol] 1.48 10*3/uL [facility] Lymphocytes/100 WBC (Bld) 12.3 % [facility] MCH (RBC) [Entitic mass] 27.2 pg 26.0 - 34.0 pg [facility] MCHC (RBC) [Mass/Vol] 31.9 g/dL 30.5 - 36.0 g/dL [facility] MCV (RBC) [Entitic vol] 85.2 fL 80.0 - 100.0 fL [facility] Monocytes (Bld) [#/Vol] 1.05 10*3/uL High [facility] Monocytes/100 WBC (Bld) 8.7 % C [facility] Neutrophils (Bld) [#/Vol] 9.14 10*3/uL High [facility] Neutrophils/100 WBC (Bld) 76.2 % [facility] Nucleated RBC (Bld) [#/Vol] NINF [facility] Nucleated RBC/100 WBC (Bld) [Ratio] 0.0 % /100 WBC [facility] Platelet mean volume (Bld) [Entitic vol] 11.3 fL 9.0 - 12.7 fL [facility] Platelets (Bld) [#/Vol] 346 10*3/uL [facility] RBC (Bld) [#/Vol] 4.93 10*6/uL 3.90 - 5.2 0 m/uL [facility] WBC (Bld) [#/Vol] 12.02 10*3/uL High [facility] Basophils (Bld) [#/Vol] 0.09 10*3/uL Normal <0.11 [facility] Comment on above: Order Comment: Speci men Type: BLOOD SPECIMENOrdering Facility: [facility] Address: [address] [place] [address] Performed By: #### 5 7021-8 ####[facility] LABIA [id number] [place] [address] [place] Basophils/100 WBC (Bld) 0.7 % Normal [facility] Comment on above: Order Comment: Speci men Type: BLOOD SPECIMENOrdering Facility: [facility] Address: [address] [place] [address] Performed By: #### 5 7021-8 ####[facility] LABCLIA [id number] [place] [address] [place] Differential cell count method Nom (Bld) Auto Normal [facility] Comment on above: Order Comment: Speci men Type: BLOOD SPECIMENOrdering Facility: [facility] Address: [address] [place] [address] Performed By: #### 5 7021-8 ####[facility] LABCLIA [id number] [place] [address] [place] Eosinophils (Bld) [#/Vol] 0.21 10*3/uL Normal <0.46 [facility] Comment on above: Order Comment: Speci men Type: BLOOD SPECIMENOrdering Facility: [facility] Address: [address] [place] [address] Performed By: #### 5 7021-8 ####[facility] LABCLIA [id number] [place] [address] [place] Eosinophils/100 WBC (Bld) 1.7 % Normal [facility] Comment on above: Order Comment: Speci men Type: BLOOD SPECIMENOrdering Facility: [facility] Address: [address] [place] [address] Performed By: #### 5 7021-8 ####[facility] LABCLIA [id number] [place] [address] [place] Erythrocyte distribution width (RBC) [Ratio] 16.6 % High 11.5-15.0 [facility] Comment on above: Order Comment: Speci men Type: BLOOD SPECIMENOrdering Facility: [facility] Address: [address] [place] [address] Performed By: #### 5 7021-8 ####[facility] LABCLIA [id number] [place] [address] [place] Hematocrit (Bld) [Volume fraction] 42.0 % Normal 36.0-46.0 [facility] Comment on above: Order Comment: Speci men Type: BLOOD SPECIMENOrdering Facility: [facility] Address: [address] [place] [address] Performed By: #### 5 7021-8 ####[facility] LABCLIA [id number] [place] [address] [place] Hemoglobin (Bld) [Mass/Vol] 13.4 g/dL Normal 11.5-15.5 [facility] Comment on above: Order Comment: Speci men Type: BLOOD SPECIMENOrdering Facility: [facility] Address: [address] [place] [address] Performed By: #### 5 7021-8 ####[facility] LABCLIA [id number] [place] [address] [place] Immature granulocytes (Bld) [#/Vol] 0.05 10*3/uL Normal <0.10 [facility] Comment on above: Order Comment: Speci men Type: BLOOD SPECIMENOrdering Facility: [facility] Address: [address] [place] [address] Performed By: #### 5 7021-8 ####[facility] LABCLIA [id number] [place] [address] [place] Immature granulocytes/100 WBC (Bld) 0.4 % Normal [facility] Comment on above: Order Comment: Speci men Type: BLOOD SPECIMENOrdering Facility: [facility] Address: [address] [place] [address] Performed By: #### 5 7021-8 ####[facility] LABCLIA [id number] [place] [address] [place] Lymphocytes (Bld) [#/Vol] 1.48 10*3/uL Normal 1.00-4.00 [facility] Comment on above: Order Comment: Speci men Type: BLOOD SPECIMENOrdering Facility: [facility] Address: [address] [place] [address] Performed By: #### 5 7021-8 ####[facility] LABCLIA [id number] [place] [address] [place] Lymphocytes/100 WBC (Bld) 12.3 % Normal [facility] Comment on above: Order Comment: Speci men Type: BLOOD SPECIMENOrdering Facility: [facility] Address: [address] [place] [address] Performed By: #### 5 7021-8 ####[facility] LABCLIA [id number] [place] [address] [place] MCH (RBC) [Entitic mass] 27.2 pg Normal 26.0-34.0 [facility] Comment on above: Order Comment: Speci men Type: BLOOD SPECIMENOrdering Facility: [facility] Address: [address] [place] [address] Performed By: #### 5 7021-8 ####[facility] LABIA [id number] [place] [address] [place] MCHC (RBC) [Mass/Vol] 31.9 g/dL Normal 30.5-36.0 [facility] Comment on above: Order Comment: Speci men Type: BLOOD SPECIMENOrdering Facility: [facility] Address: [address] [place] [address] Performed By: #### 5 7021-8 ####[facility] LABIA [id number] [place] [address] [place] MCV (RBC) [Entitic vol] 85.2 fL Normal 80.0-100.0 C [facility] Comment on above: Order Comment: Speci men Type: BLOOD SPECIMENOrdering Facility: [facility] Address: [address] [place] [address] Performed By: #### 5 7021-8 ####[facility] LABIA [id number] [place] [address] [place] Monocytes (Bld) [#/Vol] 1.05 10*3/uL High <0.87 [facility] Comment on above: Order Comment: Speci men Type: BLOOD SPECIMENOrdering Facility: [facility] Address: [address] [place] [address] Performed By: #### 5 7021-8 ####[facility] LABCLIA [id number] [place] [address] [place] Monocytes/100 WBC (Bld) 8.7 % Normal C [facility] Comment on above: Order Comment: Speci men Type: BLOOD SPECIMENOrdering Facility: [facility] Address: [address] [place] [address] Performed By: #### 5 7021-8 ####[facility] LABCLIA [id number] [place] [address] [place] Neutrophils (Bld) [#/Vol] 9.14 10*3/uL High 1.45-7.50 [facility] Comment on above: Order Comment: Speci men Type: BLOOD SPECIMENOrdering Facility: [facility] Address: [address] [place] [address] Performed By: #### 5 7021-8 ####[facility] LABIA [id number] [place] [address] [place] Neutrophils/100 WBC (Bld) 76.2 % Normal [facility] Comment on above: Order Comment: Speci men Type: BLOOD SPECIMENOrdering Facility: [facility] Address: [address] [place] [address] Performed By: #### 5 7021-8 ####[facility] LABIA [id number] [place] [address] [place] Nucleated RBC (Bld) [#/Vol] 10*3/uL Normal <0.01 [facility] Comment on above: Order Comment: Speci men Type: BLOOD SPECIMENOrdering Facility: [facility] Address: [address] [place] [address] Performed By: #### 5 7021-8 ####[facility] LABIA [id number] [place] [address] [place] Nucleated RBC/100 WBC (Bld) [Ratio] 0.0 /100 WBC Normal [facility] Comment on above: Order Comment: Speci men Type: BLOOD SPECIMENOrdering Facility: [facility] Address: [address] [place] [address] Performed By: #### 5 7021-8 ####[facility] LABCLIA [id number] [address] [address] [place] Platelet mean volume (Bld) [Entitic vol] 11.3 fL Normal 9.0-12.7 [facility] Comment on above: Order Comment: Speci men Type: BLOOD SPECIMENOrdering Facility: [facility] Address: [address] [place] [address] Performed By: #### 5 7021-8 ####[facility] LABIA [id number] [place] [address] [place] Platelets (Bld) [#/Vol] 346 10*3/uL Normal 150-400 [facility] Comment on above: Order Comment: Speci men Type: BLOOD SPECIMENOrdering Facility: [facility] Address: [address] [place] [address] Performed By: #### 5 7021-8 ####[facility] LABIA [id number] [place] [address] [place] RBC (Bld) [#/Vol] 4.93 10*6/uL Normal 3.90-5.20 [facility] Comment on above: Order Comment: Speci men Type: BLOOD SPECIMENOrdering Facility: [facility] Address: [address] [place] [address] Performed By: #### 5 7021-8 ####[facility] LABIA [id number] [place] [address] [place] WBC (Bld) [#/Vol] 12.02 10*3/uL High 3.70-11.00 [facility] Comment on above: Order Comment: Speci men Type: BLOOD SPECIMENOrdering Facility: [facility] Address: [address] [place] [address] Performed By: #### 5 7021-8 ####[facility] LABIA [id number] [place] [address] [place] CNOVon 01-09-2025 CNOV Office Visit (FAMPWS ) MICHAEL MEIER ([id number]) 1940 F Date Time Provider Department 05/11/24 1:00 PM KEY PORTILLO FAMPWS During your visit today, we recorded the following information about you: Pulse Blood pressure Weight 60/minute 130/58 100.9 kg Key Portillo APRN.BRIDGE BUILDER 05/11/2024 2:08 PM Signed Chief Complaint Patient presents with: Transition Of Care: Was i wfor chf flae was discharged on 05/02/24 HPI Michael Meier is a 84 year old female who presents here today for Above Complaints. Michael is an established patient of Dr. Edd DO. Concerns today... Hospital discharge -- [facility] hospital admission from 04/30-05/02 d/t hypoxia [...] FEM PROSTC AGRFT/ALGRFT Left 07/2016 [facility] CONDYLEANDPLATU MEDIALANDLAT COMPARTMENTS 11/15/2009 Knee replacement, total -[facility] ARTHRP E CONDYLEANDPLATU MEDIALANDLAT COMPARTMENTS 12/30/2009 Right knee replaced COLONOSCOPY FLX DX W/COLLJ SPEC WHEN PFRMD 06/29/2017 Colonoscopy EGD 10/17/2020 EGD W/O [facility] SPEC VARICIES INJ 01/08/2022 EGD W/O [facility] SPEC VARICIES INJ 03/31/2024 Lito ESOPHAGOGASTRODUODENOS COPY TRANSORAL DIAGNOSTIC 11/29/2000 EGD ESOPHAGOGASTRODUODENOS COPY TRANSORAL DIAGNOSTIC 06/29/2017 EGD JOINT REPLACEMENT HX [...] Sulfa (Sulfonamide * hives Vicodin [Hydrocodon* Intolerance dizzy,nausea,vomiting, headache Zithromax [Azithrom* Intolerance Current Medications Current Outpatient [...] (more content not included)... Normal [facility] Comprehensive metabolic 2000 panelon 05-11-2024 Albumin [Mass/Vol] 4.1 g/dL Normal 3.9-4.[address] [facility] Comment on above: Order Comment: Speci men Type: BLOOD SPECIMENOrdering Facility: [facility] Address: [address] [place] [address] Performed By: #### 2 4323-8, 3016-3, 75373-9, 302-7 ####[facility] LABIA [id number] [place] [address] [place] ALP [Catalytic activity/Vol] 98 U/L Normal 34-123 [facility] Comment on above: Order Comment: Speci men Type: BLOOD SPECIMENOrdering Facility: [facility] Address: [address] [place] [address] Performed By: #### 2 4323-8, 3016-3, 49552-6, 3024-7 ####[facility] LABCLIA [id number] [address] [address] [place] ALT [Catalytic activity/Vol] 26 U/L Normal 7-38 [facility] Comment on above: Order Comment: Speci men Type: BLOOD SPECIMENOrdering Facility: [facility] Address: [address] [place] [address] Performed By: #### 2 4323-8, 3016-3, 69567-5, 3024-7 ####[facility] LABCLIA [id number] [place] [address] [place] Anion gap [Moles/Vol] 15 mmol/L Normal 8-15 [facility] Comment on above: Order Comment: Speci men Type: BLOOD SPECIMENOrdering Facility: [facility] Address: [address] [place] [address] [place] [address] Performed By: #### 2 4323-8, 3016-3, 18353-9, 3024-7 ####[facility] LABCLIA [id number] [place] [address] [place] AST [Catalytic activity/Vol] 29 U/L Normal 13-35 [facility] Comment on above: Order Comment: Speci men Type: BLOOD SPECIMENOrdering Facility: [facility] Address: [address] [place], [place] [address] [address] Performed By: #### 2 4323-8, 3016-3, 27069-5, 3024-7 ####[facility] LABCLIA [id number] [place] [address] [place] Bilirubin [Mass/Vol] 0.8 mg/dL Normal 0.2-1.3 [facility] Comment on above: Order Comment: Speci men Type: BLOOD SPECIMENOrdering Facility: [facility] Address: [address] [place] [address] [place] [address] Performed By: #### 2 4323-8, 3016-3, 07470-4, 3024-7 ####[facility] LABCLIA [id number] [place] [id number] [place] Calcium [Mass/Vol] 9.4 mg/dL Normal 8.5-10.[address] [facility] Comment on above: Order Comment: Speci men Type: BLOOD SPECIMENOrdering Facility: [facility] Address: [facility] [place] [address] Performed By: #### 2 4323-8, 3016-3, 84500-9, 3024-7 ####[facility] LABCLIA [id number] [place] [address] [place] Chloride [Moles/Vol] 95 mmol/L Low 98-107 [facility] Comment on above: Order Comment: Speci men Type: BLOOD SPECIMENOrdering Facility: [facility] Address: [address] [place] [address] Performed By: #### 2 4323-8, 3016-3, 18962-1, 3024-7 ####[facility] LABCLIA [id number] [place] [address] [place] CO2 [Moles/Vol] 25 mmol/L Normal 22-30 [facility] Comment on above: Order Comment: Speci men Type: BLOOD SPECIMENOrdering Facility: [facility] Address: [facility] [place] [address] Performed By: #### 2 4323-8, 3016-3, 08569-8, 3024-7 ####[facility] LABIA [id number] [place] [address] [place] Creatinine [Mass/Vol] 1.76 mg/dL High 0.58-0.96 [facility] Comment on above: Order Comment: Speci men Type: BLOOD SPECIMENOrdering Facility: [facility] Address: [address] [place] [address] Performed By: #### 2 4323-8, 3016-3, 67884-2, 3024-7 ####[facility] LABCLIA [id number] [place] [address] [place] Creatinine and Glomerular filtration rate.predicted panel (S/P/Bld) 28 mL/min/1.73m??? Low >=60 [facility] Comment on above: Order Comment: Lori mosqueda Type: BLOOD SPECIMENOrdering Facility: [facility] Address: [address] [place] [address] Result Comment: Bina mated Glomerular Filtration Rate [...] GFR. Performed By: #### 2 4323-8, 3016-3, 05766-0, 3024-7 ####[facility] LABCLIA [id number] [place] [address] [place] Glucose [Mass/Vol] 127 mg/dL High 74-[address] [facility] Comment on above: Order Comment: Lori mosqueda Type: BLOOD SPECIMENOrdering Facility: [facility] Address: [address] [place] [address] Result Comment: The [place] Diabetes Association (ADA) provides guidance for cutoff [...] Standards of Medical Care in Diabetes 2016, [place] [employer] Association. Diabetes Care. 2016.39(Suppl 1). Performed By: #### 2 4323-8, 3016-3, 07899-5, 3024-7 ####[facility] LABCLIA [id number] [place] [id number] [place] Potassium [Moles/Vol] 4.6 mmol/L Normal 3.7-5.1 [facility] Comment on above: Order Comment: Speci men Type: BLOOD SPECIMENOrdering Facility: [facility] Address: [address] [place] [address] Performed By: #### 2 4323-8, 3016-3, 06352-1, 3024-7 ####[facility] LABCLIA [id number] [place] [address] [place] Protein [Mass/Vol] 7.1 g/dL Normal 6.3-8.[address] [facility] Comment on above: Order Comment: Speci men Type: BLOOD SPECIMENOrdering Facility: [facility] Address: [address] [place] [address] Performed By: #### 2 4323-8, 3016-3, 64051-4, 3024-7 ####[facility] LABCLIA [id number] [place] [address] [place] Sodium [Moles/Vol] 135 mmol/L Low 136-[address] [facility] Comment on above: Order Comment: Speci men Type: BLOOD SPECIMENOrdering Facility: [facility] Address: [address] [place] [address] Performed By: #### 2 4323-8, 3016-3, 98557-9, 3024-7 ####[facility] LABIA [id number] [place] [address] [place] Urea nitrogen [Mass/Vol] 42 mg/dL High 7-21 [facility] Comment on above: Order Comment: Speci men Type: BLOOD SPECIMENOrdering Facility: [facility] Address: [address] [place] [address] Performed By: #### 2 4323-8, 3016-3, 66666-0, 3024-7 ####[facility] LABCLIA [id number] [place] [id number] [place] NT-proBNP [facility] 05-11 Natriuretic peptide.B prohormone N-Terminal [Mass/Vol] 117 pg/mL Normal <450 [facility] Comment on above: Order Comment: Speci men Type: BLOOD SPECIMENOrdering Facility: [facility] Address: [address] [place] [address] Performed By: #### 2 4323-8, 3016-3, 16748-4, 3024-7 ####[facility] LABIA [id number] [place] [address] [place] T4 Free SerPl-mCncon 025 Free T4 [Mass/Vol] 2.0 ng/dL High 0.9-1.[address] [facility] Comment on above: Order Comment: Speci men Type: BLOOD SPECIMENOrdering Facility: [facility] Address: [address] [place] [address] Performed By: #### 2 4323-8, 3016-3, 44647-1, 3024-7 ####[facility] LABIA [id number] [place] [address] [place] TSH SerPl-aCncon 05-11-2024 TSH Qn 2.320 m[IU]/L Normal 0.270-4.200 [facility] Comment on above: Order Comment: Speci men Type: BLOOD SPECIMENOrdering Facility: [facility] Address: [address] [place] [address] Performed By: #### 2 4323-8, 3016-3, 46014-6, 3024-7 ####[facility] [id number] [place] [id number] [place] CNPChasity 05-08-2024 CNPN Telephone (FAMPWS) MICHAEL MEIER ([id number]) 1940 F Date Time Provider Department 05/08/24 MICHAEL PUGA During your visit today, we recorded the following information about you: Amanda Pratt RN 05/08/2024 9:01 AM Signed Marifer with [facility] calls to let provider know [...] Will address then. Thank you, Key Portillo APRN.BRIDGE BUILDER Allergies As of Date: 05/08/2024 Noted Allergy Reaction CIPROFLOXACIN 09/05/2018 2 - Rash DEMEROL (MEPERIDINE (PF)) 02/06/2011 11 - Vomiting OPIOIDS - MORPHINE ANALOGUES 03/17/2001 5 - Intolerance Comments: nausea, dizzy, sees things OPIOIDS-MEPERIDINE AND RELATED 02/17/2001 Comments: nausea/vomiting PENICILLIN G 02/17/2001 Comments: imani PRAVACHOL (PRAVASTATIN SODIUM) 03/09/2016 14 - Other: See Comments Comments: Leg cramps SULFA (SULFONAMIDE ANTIBIOTICS) 03/17/2001 Comments: hives VICODIN (HYDROCODONE-ACETAMINO PHE*01/08/2005 5 - Intolerance Comments: dizzy,nausea,vomiting, headache ZITHROMAX (AZITHROMYCIN) 05/20/2017 5 - Intolerance Date Reviewed: 04/10/2024 Reviewed by: Sharon Jarrett APRN.CARMELINA - Fully Assessed Reason for Visit: Patient [...] SKIN FACE NEC [D23.30] 01/20/2007 01/09/2012 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 01/09/2012 DYSMETABOLIC SYNDROME X [E88.810] 07/12/2007 A-fib ([facility]) [I48.91] 10/08/2010 03/11/2015 Personal history of malignant melanoma of skin *02/08/2011 Actinic skin damage [L57.8] 01/09/2012 03/11/2015 Solar Lentigines [L81.4] 01/09/2012 03/11/2015 Surgical Scars [L90.5] 01/09/2012 03/11/2015 Irriated//Inflamed Seborrheic Keratoses [L82.0] 12/01/2013 03/11/2015 Other Seborrheic Keratoses [L82.1] 12/01/2013 03/11/2015 Xerosis cutis [L85.3] 12/01/2013 03/11/2015 Cutaneous skin tags [L91.8] 12/01/2013 03/11/2015 Hyperlipidemia [E78 (more content not included)... Normal [facility] Priscila 05-05-2024 CARMELINAN Telephone (FAMPWS) MICHAEL MEIER ([id number]) 1940 F Date Time Provider Department 05/05/24 MICHAEL PUGA During your visit today, we recorded the following information about you: July Marcano RN 05/05/2024 4:02 PM Signed Sergio PT with [facility] called in and reports they [...] SULFA (SULFONAMIDE ANTIBIOTICS) 03/17/2001 Comments: imani VICODIN (HYDROCODONE-ACETAMINO PHE*01/08/2005 5 - Intolerance Comments: dizzy,nausea,vomiting, headache ZITHROMAX (AZITHROMYCIN) 05/20/2017 5 - Intolerance Date Reviewed: 04/10/2024 Reviewed by: Sharon Jarrett APRN.BRIDGE BUILDER - Fully Assessed Reason for Visit: Home [...] SKIN FACE NEC [D23.30] 01/20/2007 01/09/2012 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 01/09/2012 DYSMETABOLIC SYNDROME X [...] [R73.01] 11/10/2016 (more content not included)... Normal [facility] 05-04-2024 [facility] Telephone (FAMPWS) MICHAEL MEIER ([id number]) 1940 F Date Time Provider Department 05/04/24 MICHAEL PUGA During your visit today, we recorded the following information about you: Aly Tolentino LPN 05/04/2024 2:34 PM Signed Suha from [facility] calling with plan of care. Only need to call her back if pcp not agreeable with orders. They will be seeing pt 1x wk for 1 wk then 2xs wk for 3 wks then 1x wk for 1 wk for disease and medication education. 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 Normal [facility] Absolute neutrophil countOrd ered By: Jonny Vicente on 05-02-2024 Neutrophils (Bld) [#/Vol] 4.4 10*3/uL 2.0-7.7 [facility] Basic Metabolic Profile (BMP )on 05-02-2024 BUN/CRE 29.7 RATIO High 10-20 [facility] Comment on above: Performed By: #### L 100.0100, L500.2500 ####[facility] [address] [place], [address] CA,Total 8.7 mg/dL Normal 8.5-10.1 [facility] Comment on above: Performed By: #### L 100.0100, L500.2500 ####[facility] [address] [place], [address] Chloride [Moles/Vol] 100 mmol/L Normal 98-107 [facility] Comment on above: Performed By: #### L 100.0100, L500.2500 ####[facility] [address] [place], [address] CO2 [Moles/Vol] 33.0 mmol/L High 21.0-32.0 [facility] Comment on above: Performed By: #### L 100.0100, L500.2500 ####[facility] [address] [place], [address] Creatinine [Mass/Vol] 0.74 mg/dL Normal 0.55-1.02 [facility] Comment on above: Result Comment: The validity of the calculated GFR GFRAA in patients over70 years has not been determined. Clinical correlation isessential. Performed By: #### L 100.0100, L500.2500 ####[facility] [address] [place], [address] ECRCL 63.05 ml/min Normal [facility] Comment on above: Performed By: #### L 100.0100, L500.2500 ####[facility] [address] [place], [address] EST GFR - AA 96 mL/min Normal >60 [facility] Comment on above: Result Comment: Afri can [place]ian GFR Calc Performed By: #### L 100.0100, L500.2500 ####[facility] [address] [place], [address] GAP 7 Normal 5-15 [facility] Comment on above: Performed By: #### L 100.0100, L500.2500 ####[facility] [address] [place], [address] GFR/1.73 sq M.predicted among non-blacks MDRD (S/P/Bld) [Vol rate/Area] 80 mL/min/{1.73_m2} Normal >60 [facility] Comment on above: Result Comment: Non- GFR Calc Performed By: #### L 100.0100, L500.2500 ####[facility] [address] [place], [address] Glucose [Mass/Vol] 109 mg/dL High 74-106 [facility] Comment on above: Result Comment: Fast ing Glucose result from 100 to 125 mg/dLsuggests IMPAIRED HOMEOSTASIS per A.D.A. criteria. Performed By: #### L 100.0100, L500.2500 ####[facility] [address] [place], [address] Potassium [Moles/Vol] 3.3 mmol/L Low 3.5-5.1 [facility] Comment on above: Performed By: #### L 100.0100, L500.2500 ####[facility] [address] [place], [address] Sodium [Moles/Vol] 139 mmol/L Normal 136-145 [facility] Comment on above: Performed By: #### L 100.0100, L500.2500 ####[facility] [address] [place], [address] Urea nitrogen [Mass/Vol] 22 mg/dL High 7-18 [facility] Comment on above: Performed By: #### L 100.0100, L500.2500 ####[facility] [address] [place], [address] Basophil percentageOrdered B y: Jonny Vicente on 05-02-2024 Basophils/100 WBC (Bld) 0.7 % 0-1 [facility] Blood urea nitrogen (BUN)/cr eatinine ratioOrdered By: Jonny Vicente on 05-02-2024 Urea nitrogen/Creatinine [Mass ratio] 29.7 mg/mg High 10-20 [facility] CBC W/Diff, Automatedon - Absolute Lymph 1.38 X10 3/uL Normal 0.83-4.51 [facility] Comment on above: Performed By: #### L 100.0100, L500.2500 ####[facility] [address] [place], [address] Absolute Neut 4.4 X10 3/uL Normal 2.0-7.7 [facility] Comment on above: Performed By: #### L 100.0100, L500.2500 ####[facility] [address] [place], [address] Basophils/100 WBC (Bld) 0.7 % Normal 0-1 [facility] Comment on above: Performed By: #### L 100.0100, L500.2500 ####[facility] [address] [place], [address] Eosinophils/100 WBC (Bld) 3.6 % Normal 0-5 [facility] Comment on above: Performed By: #### L 100.0100, L500.2500 ####[facility] [address] [place], [address] Erythrocyte distribution width (RBC) [Ratio] 16.2 % High 11.6-14.6 [facility] Comment on above: Performed By: #### L 100.0100, L500.2500 ####[facility] [address] [place], [address] Hematocrit (Bld) [Volume fraction] 34.8 % Low 37-47 [facility] Comment on above: Performed By: #### L 100.0100, L500.2500 ####[facility] [address] [place], [address] Hemoglobin (Bld) [Mass/Vol] 11.2 g/dL Low 12.0-15.0 [facility] Comment on above: Performed By: #### L 100.0100, L500.2500 ####[facility] [address] [place], [address] IG% 0.300 Normal 0.0-0.9 [facility] Comment on above: Result Comment: IG% - Immature Granulocytes (promyelocytes, myelocytes andmetamyelocytes) > 1% indicates that a LEFT SHIFT is Present. Performed By: #### L 100.0100, L500.2500 ####[facility] [address] [place], [address] Lymphocytes/100 WBC (Bld) 19.8 % Normal 19-41 [facility] Comment on above: Performed By: #### L 100.0100, L500.2500 ####[facility] [address] [place], [address] MCH (RBC) [Entitic mass] 27.7 pg Normal 27.0-32.0 [facility] Comment on above: Performed By: #### L 100.0100, L500.2500 ####[facility] [address] [place], [address] MCHC (RBC) [Mass/Vol] 32.2 g/dL Normal 32-36 [facility] Comment on above: Performed By: #### L 100.0100, L500.2500 ####[facility] [address] [place], [address] MCV (RBC) [Entitic vol] 85.9 fL Normal 81-99 [facility] Comment on above: Performed By: #### L 100.0100, L500.2500 ####[facility] [address] [place], [address] Monocytes/100 WBC (Bld) 11.9 % High 0-10 [facility] Comment on above: Performed By: #### L 100.0100, L500.2500 ####[facility] [address] [place], [address] Neutrophils/100 WBC (Bld) 63.7 % Normal 47-70 [facility] Comment on above: Performed By: #### L 100.0100, L500.2500 ####[facility] [address] [place], [address] Nucleated RBC (Bld) [#/Vol] 0 10*3/uL Normal 0-5 [facility] Comment on above: Performed By: #### L 100.0100, L500.2500 ####[facility] [address] [place], [address] Platelet mean volume (Bld) [Entitic vol] 10.8 fL Normal 6.2-12.0 [facility] Comment on above: Performed By: #### L 100.0100, L500.2500 ####[facility] [address] [place], [address] Platelets (Bld) [#/Vol] 241 10*3/uL Normal 150-450 [facility] Comment on above: Performed By: #### L 100.0100, L500.2500 ####[facility] [address] [place], [address] RBC (Bld) [#/Vol] 4.05 10*6/uL Low 4.2-5.4 [facility] Comment on above: Performed By: #### L 100.0100, L500.2500 ####[facility] [address] [place], [address] RDW SD 51.3 fl High 35.1-43.9 [facility] Comment on above: Performed By: #### L 100.0100, L500.2500 ####[facility] [address] [place], [address] WBC (Bld) [#/Vol] 7.0 10*3/uL Normal 4.4-11.0 [facility] Comment on above: Performed By: #### L 100.0100, L500.2500 ####[facility] [address] [place], [address] Carbon dioxide measurementOr dered By: Jonny Vicente on 05-02-2024 CO2 [Moles/Vol] 33.0 mmol/L High 21.0-32.0 [facility] Chloride measurementOrdered By: Jonny Vicente on 05-02-2024 Chloride [Moles/Vol] 100 mmol/L 98-107 [facility] Discharge Instructionon 04-04 Discharge Instruction Normal [facility] Eosinophil percentageOrdered By: Jonny Vicente on 05-02-2024 Eosinophils/100 WBC (Bld) 3.6 % 0-5 [facility] Erythrocyte distribution wid th ratioOrdered By: Jonny Vicente on 05-02-2024 Erythrocyte distribution width (RBC) [Ratio] 16.2 % High 11.6-14.6 [facility] Erythrocyte distribution wid th standard deviationOrdered By: Jonny Vicente on 05-02-2024 Erythrocyte distribution width (RBC) [Entitic vol] 51.3 fL High 35.1-43.9 [facility] Estimated glomerular filtrat ion rate (GFR) AmericanOrdered By: Jonny Vicente on 05-02-2024 Estimated GFR (MDRD) Amer 96 mL/min >60 [facility] Comment on above: GFR Calc Estimation of creatinine demetrius aranceOrdered By: Jonny Vicente on 05-02-2024 Estimated Creatinine Clearance Calc 63.05 ml/min [facility] Glomerular filtration rate ( GFR) estimationOrdered By: Jonny Vicente on 05-02-2024 Estimated GFR (MDRD) Non-Af Amer 80 mL/min >60 [facility] Comment on above: Non- GFR Calc Glucose measurementOrdered B y: Jonny Vicente on 05-02-2024 Glucose [Mass/Vol] 109 mg/dL High 74-106 [facility] Comment on above: Fasting Glucose resu lt from 100 to 125 mg/dL suggests IMPAIRED HOMEOSTASIS per A.D.A. criteria. Hematocrit Auto (Bld) [Volum e fraction]Ordered By: Jonny Vicente on 05-02-2024 Hematocrit (Bld) [Volume fraction] 34.8 % Low 37-47 [facility] Hemoglobin measurementOrdere d By: Jonny Vicente on 05-02-2024 Hemoglobin (Bld) [Mass/Vol] 11.2 g/dL Low 12.0-15.0 [facility] Immature granulocytes/100 WB C Auto (Bld)Ordered By: Jonny Vicente on 05-02-2024 Immature granulocytes/100 WBC (Bld) 0.300 % 0.0-0.9 [facility] Comment on above: IG% - Immature Granu locytes (promyelocytes, myelocytes and metamyelocytes) > 1% indicates that a LEFT SHIFT is Present. Lymphocytes Auto (Unsp spec) [#/Vol]Ordered By: Jonny Vicente on 05-02-2024 Lymphocytes (Bld) [#/Vol] 1.38 10*3/uL 0.83-4.51 [facility] Lymphocytes/100 WBC Auto (Un sp spec)Ordered By: Jonny Vicente on 05-02-2024 Lymphocytes/100 WBC (Bld) 19.8 % 19-41 [facility] MCV (mean corpuscular volume ) determinationOrdered By: Jonny Vicente on 05-02-2024 MCV (RBC) [Entitic vol] 85.9 fL 81-99 [facility] Mean corpuscular hemoglobin (MCH) determinationOrdered By: Jonny Vicente on 05-02-2024 MCH (RBC) [Entitic mass] 27.7 pg 27.0-32.0 [facility] Mean corpuscular hemoglobin concentration (MCHC) determinationOrdered By: Jonny Vicente on 05-02-2024 MCHC (RBC) [Mass/Vol] 32.2 g/dL 32-36 [facility] Mean platelet volume determi nationOrdered By: Jonny Vicente on 05-02-2024 Platelet mean volume (Bld) [Entitic vol] 10.8 fL 6.2-12.0 [facility] Monocyte percentageOrdered B y: Jonny Vicente on 05-02-2024 Monocytes/100 WBC (Bld) 11.9 % High 0-10 [facility] Neutrophil percentageOrdered By: Jonny Vicente on 05-02-2024 Neutrophils/100 WBC (Bld) 63.7 % 47-70 [facility] Nucleated red blood cell per centageOrdered By: Jonny Vicente on 05-02-2024 Nucleated RBC/100 WBC (Bld) [Ratio] 0 % 0-5 [facility] Platelet countOrdered By: Alyson Vicente on 05-02-2024 Platelets (Bld) [#/Vol] 241 10*3/uL 150-450 [facility] Potassium measurementOrdered By: Jonny Vicente on 05-02-2024 Potassium [Moles/Vol] 3.3 mmol/L Low 3.5-5.1 [facility] RBC Auto (Bld) [#/Vol]Ordere d By: Jonny Vicente on 05-02-2024 RBC (Bld) [#/Vol] 4.05 10*6/uL Low 4.2-5.4 [facility] Serum anion gap measurementO rdered By: Jonny Vicente on 05-02-2024 Anion gap [Moles/Vol] 7 mmol/L 5-15 [facility] Serum or plasma calcium julee urement (mass/volume)Ordered By: Jonny Vicente on 05-02-2024 Calcium [Mass/Vol] 8.7 mg/dL 8.5-10.1 [facility] Serum or plasma creatinine m easurement (mass/volume)Ordered By: Jonny Vicente on 05-02-2024 Creatinine [Mass/Vol] 0.74 mg/dL 0.55-1.02 [facility] Comment on above: The validity of the calculated GFR & GFRAA in patients over 70 years has not been determined. Clinical correlation is essential. Serum or plasma urea nitroge n measurement (mass/volume)Ordered By: Jonny Vicente on 05-02-2024 Urea nitrogen [Mass/Vol] 22 mg/dL High 7-18 [facility] Sodium levelOrdered By: Timmy Vicente on 05-02-2024 Sodium [Moles/Vol] 139 mmol/L 136-145 [facility] Urine Cultureon 05-02-2024 [facility] Comments: Use ED UA Mixed Gram Positive Organisms [place] Count 25,000-50,000 [facility] Mixed contaminants. Submit a new specimen if indicated. Normal [facility] Comment on above: Performed By: #### M 100.2200 ####[facility] [address] [place], [place], [id number] White blood cell (WBC) count Ordered By: Jonny Vicente on 05-02-2024 WBC (Bld) [#/Vol] 7.0 10*3/uL 4.4-11.0 [facility] Albumin to globulin ratioOrd ered By: Susan Duran on 05-01-2024 Albumin/Globulin [Mass ratio] 0.8 {ratio} Low 0.9-2.4 [facility] Comment on above: Performed By: #### L 500.4050, L100.0100, L500.4100 ####[facility] [address] [place], [address] Bilirubin, totalOrdered By: Susan Roger on 05-01-2024 Bilirubin [Mass/Vol] 1.60 mg/dL High 0.20-1.00 [facility] Comment on above: For patients on eltr ombopag therapy, use of Dimension [place] TBIL is not recommended. Result Comment: For patients on eltrombopag therapy, use of Dimension [place] TBIL is not recommended. Performed By: #### L 500.4050, L100.0100, L500.4100 ####[facility] [address] [place], [address] CBC W/Diff, Automatedon 04-04 Absolute Lymph 1.39 X10 3/uL Normal 0.83-4.51 [facility] Comment on above: Performed By: #### L 500.4050, L100.0100, L500.4100 ####[facility] [address] [place], [address] Absolute Neut 4.5 X10 3/uL Normal 2.0-7.7 [facility] Comment on above: Performed By: #### L 500.4050, L100.0100, L500.4100 ####[facility] [address] [place], [address] Basophils/100 WBC (Bld) 0.8 % Normal 0-1 [facility] Comment on above: Performed By: #### L 500.4050, L100.0100, L500.4100 ####[facility] [address] [place], [address] Eosinophils/100 WBC (Bld) 2.5 % Normal 0-5 [facility] Comment on above: Performed By: #### L 500.4050, L100.0100, L500.4100 ####[facility] [address] [place], [address] Erythrocyte distribution width (RBC) [Ratio] 16.5 % High 11.6-14.6 [facility] Comment on above: Performed By: #### L 500.4050, L100.0100, L500.4100 ####[facility] [address] [place], [address] Hematocrit (Bld) [Volume fraction] 34.0 % Low 37-47 [facility] Comment on above: Performed By: #### L 500.4050, L100.0100, L500.4100 ####[facility] [address] [place], [address] Hemoglobin (Bld) [Mass/Vol] 11.0 g/dL Low 12.0-15.0 [facility] Comment on above: Performed By: #### L 500.4050, L100.0100, L500.4100 ####[facility] [address] [place], [address] IG% 0.100 Normal 0.0-0.9 [facility] Comment on above: Result Comment: IG% - Immature Granulocytes (promyelocytes, myelocytes andmetamyelocytes) > 1% indicates that a LEFT SHIFT is Present. Performed By: #### L 500.4050, L100.0100, L500.4100 ####[facility] [address] [place], [address] Lymphocytes/100 WBC (Bld) 19.6 % Normal 19-41 [facility] Comment on above: Performed By: #### L 500.4050, L100.0100, L500.4100 ####[facility] [address] [place], [address] MCH (RBC) [Entitic mass] 27.5 pg Normal 27.0-32.0 [facility] Comment on above: Performed By: #### L 500.4050, L100.0100, L500.4100 ####[facility] [address] [place], [address] MCHC (RBC) [Mass/Vol] 32.4 g/dL Normal 32-36 [facility] Comment on above: Performed By: #### L 500.4050, L100.0100, L500.4100 ####[facility] [address] [place], [address] MCV (RBC) [Entitic vol] 85.0 fL Normal 81-99 [facility] Comment on above: Performed By: #### L 500.4050, L100.0100, L500.4100 ####[facility] [address] [place], [address] Monocytes/100 WBC (Bld) 13.4 % High 0-10 [facility] Comment on above: Performed By: #### L 500.4050, L100.0100, L500.4100 ####[facility] [address] [place], [address] Neutrophils/100 WBC (Bld) 63.6 % Normal 47-70 [facility] Comment on above: Performed By: #### L 500.4050, L100.0100, L500.4100 ####[facility] [address] [place], [address] Nucleated RBC (Bld) [#/Vol] 0 10*3/uL Normal 0-5 [facility] Comment on above: Performed By: #### L 500.4050, L100.0100, L500.4100 ####[facility] [address] [place], [address] Platelet mean volume (Bld) [Entitic vol] 11.2 fL Normal 6.2-12.0 [facility] Comment on above: Performed By: #### L 500.4050, L100.0100, L500.4100 ####[facility] [address] [place], [address] Platelets (Bld) [#/Vol] 193 10*3/uL Normal 150-450 [facility] Comment on above: Performed By: #### L 500.4050, L100.0100, L500.4100 ####[facility] [address] [place], [address] RBC (Bld) [#/Vol] 4.00 10*6/uL Low 4.2-5.4 [facility] Comment on above: Performed By: #### L 500.4050, L100.0100, L500.4100 ####[facility] [address] [place], [address] RDW SD 51.2 fl High 35.1-43.9 [facility] Comment on above: Performed By: #### L 500.4050, L100.0100, L500.4100 ####[facility] [address] [place], [address] WBC (Bld) [#/Vol] 7.1 10*3/uL Normal 4.4-11.0 [facility] Comment on above: Performed By: #### L 500.4050, L100.0100, L500.4100 ####[facility] [address] [place], [address] [facility] ([employer]) MICHAEL MEIER ([id number]) 1940 F Date Time Provider Department 05/01/24 [facility] During your visit today, we recorded the following information about you: Constance Ervin LPN 05/01/2024 2:21 PM Signed Larissa with [facility] calls to report pt is currently in the hospital with heart failure exacerbation. Pt will most likely be discharged 05/03/24. Pt has HH orders for PT, OT, and Chcf. Larissa is requesting VO that pcp will follow pt while in HH. Call Larissa with VO from pcp. CAROLINE Lennon Bernadette, PA-C 05/01/2024 4:03 PM Signed Verbal order okay for PCP to follow for HH. SERGE Griffin Susan LPN 05/01/2024 4:41 PM Signed Manny informed message left on . Allergies As of Date: 05/01/2024 Noted Allergy Reaction CIPROFLOXACIN 09/05/2018 2 - Rash DEMEROL (MEPERIDINE (PF)) 02/06/2011 11 - Vomiting OPIOIDS - MORPHINE ANALOGUES 03/17/2001 5 - Intolerance Comments: nausea, dizzy, sees things OPIOIDS-MEPERIDINE AND RELATED 02/17/2001 Comments: nausea/vomiting PENICILLIN G 02/17/2001 Comments: hives PRAVACHOL (PRAVASTATIN SODIUM) 03/09/2016 14 - Other: See Comments Comments: Leg cramps SULFA (SULFONAMIDE ANTIBIOTICS) 03/17/2001 Comments: hives VICODIN (HYDROCODONE-ACETAMINO PHE*01/08/2005 5 - Intolerance Comments: dizzy,nausea,vomiting, headache ZITHROMAX (AZITHROMYCIN) 05/20/2017 5 - Intolerance Date Reviewed: 04/10/2024 Reviewed by: Sharon Jarrett APRN.[employer] - Fully Assessed Reason for Visit: verbal [...] SKIN FACE NEC [D23.30] 01/20/2007 01/09/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 Normal [facility] Metabolic Prof shahida 05-01-2024 ALK P 80 U/L Normal 45-117 [facility] Comment on above: Performed By: #### L 500.4050, L100.0100, L500.4100 ####[facility] [address] [place], [address] BUN/CRE 20.0 RATIO Normal - [facility] Comment on above: Performed By: #### L 500.4050, L100.0100, L500.4100 ####[facility] [address] [place], [address] CA,Total 8.8 mg/dL Normal 8.5-10.1 [facility] Comment on above: Performed By: #### L 500.4050, L100.0100, L500.4100 ####[facility] [address] [place], [address] Chloride [Moles/Vol] 100 mmol/L Normal 98-107 [facility] Comment on above: Performed By: #### L 500.4050, L100.0100, L500.4100 ####[facility] [address] [place], [address] CO2 [Moles/Vol] 35.0 mmol/L High 21.0-32.0 [facility] Comment on above: Performed By: #### L 500.4050, L100.0100, L500.4100 ####[facility] [address] [place], [address] Creatinine [Mass/Vol] 0.85 mg/dL Normal 0.55-1.02 [facility] Comment on above: Result Comment: The validity of the calculated GFR GFRAA in patients over70 years has not been determined. Clinical correlation isessential. Performed By: #### L 500.4050, L100.0100, L500.4100 ####[facility] [address] [place], [address] ECRCL 59.98 ml/min Normal [facility] Comment on above: Performed By: #### L 500.4050, L100.0100, L500.4100 ####[facility] [address] [place], [address] EST GFR - AA 82 mL/min Normal >60 [facility] Comment on above: Result Comment: Afri can Croatian GFR Calc Performed By: #### L 500.4050, L100.0100, L500.4100 ####[facility] [address] [place], [address] GAP 3 Low 5-15 [facility] Comment on above: Performed By: #### L 500.4050, L100.0100, L500.4100 ####[facility] [address] [place], [address] GFR/1.73 sq M.predicted among non-blacks MDRD (S/P/Bld) [Vol rate/Area] 68 mL/min/{1.73_m2} Normal >60 [facility] Comment on above: Result Comment: Non- GFR Calc Performed By: #### L 500.4050, L100.0100, L500.4100 ####[facility] [address] [place], [address] Glucose [Mass/Vol] 117 mg/dL High 74-106 [facility] Comment on above: Result Comment: Fast ing Glucose result from 100 to 125 mg/dLsuggests IMPAIRED HOMEOSTASIS per A.D.A. criteria. Performed By: #### L 500.4050, L100.0100, L500.4100 ####[facility] [address] [place], [address] Potassium [Moles/Vol] 3.0 mmol/L Low 3.5-5.1 [facility] Comment on above: Performed By: #### L 500.4050, L100.0100, L500.4100 ####[facility] [address] [place], [address] Sodium [Moles/Vol] 138 mmol/L Normal 136-145 [facility] Comment on above: Performed By: #### L 500.4050, L100.0100, L500.4100 ####[facility] [address] [place], [address] T PROT 6.3 g/dL Low 6.4-8.2 [facility] Comment on above: Performed By: #### L 500.4050, L100.0100, L500.4100 ####[facility] [address] [place], [address] Urea nitrogen [Mass/Vol] 17 mg/dL Normal 7-18 [facility] Comment on above: Performed By: #### L 500.4050, L100.0100, L500.4100 ####[facility] [address] [place], [address] Comprehensive Metabolic Prof ilOrdered By: Susan Duran on 05-01-2024 AST [Catalytic activity/Vol] 18 U/L Normal 15-37 [facility] Comment on above: Performed By: #### L 500.4050, L100.0100, L500.4100 ####[facility] [address] [place], [address] High density lipoprotein (HD L) measurementOrdered By: Susan Duran on 05-01-2024 Cholesterol in HDL [Mass/Vol] 54 mg/dL Normal [facility] Comment on above: The drugs [...] Performed By: #### L 500.4050, L100.0100, L500.4100 ####[facility] [address] [place], [address] Lipid Profileon 05-01-2024 Cholesterol in VLDL [Mass/Vol] 20 mg/dL Normal 5-40 [facility] Comment on above: Performed By: #### L 500.4050, L100.0100, L500.4100 ####[facility] [address] [place], [address] Low density lipoprotein (LDL ) cholesterol measurementOrdered By: Susan Roger on 05-01-2024 Cholesterol in LDL [Mass/Vol] 66 mg/dL Normal 0-130 [facility] Comment on above: Performed By: #### L 500.4050, L100.0100, L500.4100 ####[facility] [address] [place], [address] Serum globulin measurementOr dered By: Susan Roger on 05-01-2024 Globulin (S) [Mass/Vol] 3.5 g/dL Normal 2.2-4.2 [facility] Comment on above: Performed By: #### L 500.4050, L100.0100, L500.4100 ####[facility] [address] [place], [address] Serum or plasma alanine sprague otransferase (ALT) measurementOrdered By: Susan Roger on 05-01-2024 ALT [Catalytic activity/Vol] 24 U/L Normal 13-56 [facility] Comment on above: Performed By: #### L 500.4050, L100.0100, L500.4100 ####[facility] [address] [place], [address] Serum or plasma albumin julee urement (mass/volume)Ordered By: Susan Duran on 05-01-2024 Albumin [Mass/Vol] 2.8 g/dL Low 3.2-5.0 [facility] Comment on above: Performed By: #### L 500.4050, L100.0100, L500.4100 ####[facility] [address] [place], [address] Serum or plasma alkaline rachel sphatase measurementOrdered By: Susan Roger on 05-01-2024 ALP [Catalytic activity/Vol] 80 U/L 45-117 [facility] Serum or plasma cholesterol measurement (mass/volume)Ordered By: Susan Duran on 05-01-2024 Cholesterol [Mass/Vol] 140 mg/dL Normal 200 [facility] Comment on above: <200 mg/dL Desirable 200-240 mg/dL Borderline >240 mg/dL High Risk Result Comment: <200 mg/dL Desirable 200-240 mg/dL Borderline >240 mg/dL High Risk Performed By: #### L 500.4050, L100.0100, L500.4100 ####[facility] [address] [place], [place], [id number] Total proteinOrdered By: Ashu Druan on 05-01-2024 Protein [Mass/Vol] 6.3 g/dL Low 6.4-8.2 [facility] Triglycerides measurementOrd ered By: Susan Duran on 05-01-2024 Triglyceride [Mass/Vol] 102 mg/dL Normal [facility] Comment on above: The drugs N-Acetylcy steine [...] Performed By: #### L 500.4050, L100.0100, L500.4100 ####[facility] [address] [place], [place], [id number] Very low density lipoprotein (VLDL) cholesterol measurementOrdered By: Susan Duran on 05-01-2024 VLDL Cholesterol 20 mg/dL 5-40 [facility] 12 Lead EKGon 04-30-2024 12 Lead EKG Normal [facility] Amorphous sediment detection in urine sediment by light microscopyOrdered By: Aravind Recio on 04-30-2024 Amorphous sediment LM Ql (Urine sed) 1+ [facility] BNP (brain natriuretic pepti de measurement)Ordered By: Aravind Recio on 04-30-2024 Natriuretic peptide B (Bld) [Mass/Vol] 266.9 pg/mL High 0-100 [facility] BNP,B-Type NATRIURETIC PEPTI Kenyatta 04-30-2024 Natriuretic peptide B (Bld) [Mass/Vol] 266.9 pg/mL High 0-100 [facility] Comment on above: Performed By: #### L 500.2500, L501.9520, L300.8000, L501.5200, L503.6620 ####[facility] [address] [place], [address] Basic Metabolic Profile (BMP )on 04-30-2024 BUN/CRE 19.1 RATIO Normal 10-20 [facility] Comment on above: Performed By: #### L 500.2500, L501.9520, L300.8000, L501.5200, L503.6620 ####[facility] [address] [place], [address] CA,Total 9.0 mg/dL Normal 8.5-10.1 [facility] Comment on above: Performed By: #### L 500.2500, L501.9520, L300.8000, L501.5200, L503.6620 ####[facility] [address] [place], [address] Chloride [Moles/Vol] 99 mmol/L Normal 98-107 [facility] Comment on above: Performed By: #### L 500.2500, L501.9520, L300.8000, L501.5200, L503.6620 ####[facility] [address] [place], [address] CO2 [Moles/Vol] 33.0 mmol/L High 21.0-32.0 [facility] Comment on above: Performed By: #### L 500.2500, L501.9520, L300.8000, L501.5200, L503.6620 ####[facility] [address] [place], [address] Creatinine [Mass/Vol] 0.68 mg/dL Normal 0.55-1.02 [facility] Comment on above: Result Comment: The validity of the calculated GFR GFRAA in patients over70 years has not been determined. Clinical correlation isessential. Performed By: #### L 500.2500, L501.9520, L300.8000, L501.5200, L503.6620 ####[facility] [address] [place], [address] ECRCL 65.47 ml/min Normal [facility] Comment on above: Performed By: #### L 500.2500, L501.9520, L300.8000, L501.5200, L503.6620 ####[facility] [address] [place], [address] EST GFR - AA 106 mL/min Normal >60 [facility] Comment on above: Result Comment: Afri can Croatian GFR Calc Performed By: #### L 500.2500, L501.9520, L300.8000, L501.5200, L503.6620 ####[facility] [address] [place], [address] GAP 7 Normal 5-15 [facility] Comment on above: Performed By: #### L 500.2500, L501.9520, L300.8000, L501.5200, L503.6620 ####[facility] [address] [place], [address] GFR/1.73 sq M.predicted among non-blacks MDRD (S/P/Bld) [Vol rate/Area] 88 mL/min/{1.73_m2} Normal >60 [facility] Comment on above: Result Comment: Non- GFR Calc Performed By: #### L 500.2500, L501.9520, L300.8000, L501.5200, L503.6620 ####[facility] [address] [place], [address] Glucose [Mass/Vol] 127 mg/dL High 74-106 [facility] Comment on above: Result Comment: Fast ing Glucose result greater than or equal to 126 mg/dLsuggests DIABETES MELLITUS per A.D.A. criteria. Performed By: #### L 500.2500, L501.9520, L300.8000, L501.5200, L503.6620 ####[facility] [address] [place], [address] Potassium [Moles/Vol] 2.8 mmol/L Low 3.5-5.1 [facility] Comment on above: Performed By: #### L 500.2500, L501.9520, L300.8000, L501.5200, L503.6620 ####[facility] [address] [place], [address] Sodium [Moles/Vol] 139 mmol/L Normal 136-145 [facility] Comment on above: Performed By: #### L 500.2500, L501.9520, L300.8000, L501.5200, L503.6620 ####[facility] [address] [place], [address] Urea nitrogen [Mass/Vol] 13 mg/dL Normal 7-18 [facility] Comment on above: Performed By: #### L 500.2500, L501.9520, L300.8000, L501.5200, L503.6620 ####[facility] [address] [place], [address] Bilirubin Test strip Ql (U)O rdered By: Aravind Recio on 04-30-2024 Bilirubin Ql (U) Negative Negative [facility] Bilirubin directOrdered By: Aravind Recio on 04-30-2024 Bilirubin.direct [Mass/Vol] 0.52 mg/dL High 0.00-0.30 [facility] CBC W/Diff, Automatedon 12-2 Absolute Lymph 1.24 X10 3/uL Normal 0.83-4.51 [facility] [facility] Comment on above: Performed By: #### L 100.0100 ####[facility] [address] [place], [address] Absolute Neut 10.4 X10 3/uL High 2.0-7.7 [facility] Comment on above: Performed By: #### L 100.0100 ####[facility] [address] [place], [address] Basophils/100 WBC (Bld) 0.4 % Normal 0-1 [facility] Comment on above: Performed By: #### L 100.0100 ####[facility] [address] [place], [address] Eosinophils/100 WBC (Bld) 1.3 % Normal 0-5 [facility] Comment on above: Performed By: #### L 100.0100 ####[facility] [address] [place], [address] Erythrocyte distribution width (RBC) [Ratio] 16.7 % High 11.6-14.6 [facility] Comment on above: Performed By: #### L 100.0100 ####[facility] [address] [place], [address] Hematocrit (Bld) [Volume fraction] 36.9 % Low 37-47 [facility] Comment on above: Performed By: #### L 100.0100 ####[facility] [address] [place], [address] Hemoglobin (Bld) [Mass/Vol] 11.9 g/dL Low 12.0-15.0 [facility] Comment on above: Performed By: #### L 100.0100 ####[facility] [address] [place], [address] IG% 0.400 Normal 0.0-0.9 [facility] Comment on above: Result Comment: IG% - Immature Granulocytes (promyelocytes, myelocytes andmetamyelocytes) > 1% indicates that a LEFT SHIFT is Present. Performed By: #### L 100.0100 ####[facility] [address] [place], [address] Lymphocytes/100 WBC (Bld) 9.3 % Low 19-41 [facility] Comment on above: Performed By: #### L 100.0100 ####[facility] [address] [place], [address] MCH (RBC) [Entitic mass] 27.7 pg Normal 27.0-32.0 [facility] Comment on above: Performed By: #### L 100.0100 ####[facility] [address] [place], [address] MCHC (RBC) [Mass/Vol] 32.2 g/dL Normal 32-36 [facility] Comment on above: Performed By: #### L 100.0100 ####[facility] [address] [place], [address] MCV (RBC) [Entitic vol] 85.8 fL Normal 81-99 [facility] Comment on above: Performed By: #### L 100.0100 ####[facility] [address] [place], [address] Monocytes/100 WBC (Bld) 11.0 % High 0-10 [facility] Comment on above: Performed By: #### L 100.0100 ####[facility] [address] [place], [address] Neutrophils/100 WBC (Bld) 77.6 % High 47-70 [facility] Comment on above: Performed By: #### L 100.0100 ####[facility] [address] [place], [address] Nucleated RBC (Bld) [#/Vol] 0 10*3/uL Normal 0-5 [facility] Comment on above: Performed By: #### L 100.0100 ####[facility] [address] [place], [address] Platelet mean volume (Bld) [Entitic vol] 10.8 fL Normal 6.2-12.0 [facility] Comment on above: Performed By: #### L 100.0100 ####[facility] [address] [place], [address] Platelets (Bld) [#/Vol] 236 10*3/uL Normal 150-450 [facility] Comment on above: Performed By: #### L 100.0100 ####[facility] [address] [place], [address] RBC (Bld) [#/Vol] 4.30 10*6/uL Normal 4.2-5.4 [facility] Comment on above: Performed By: #### L 100.0100 ####[facility] [address] [place], [address] RDW SD 52.8 fl High 35.1-43.9 [facility] Comment on above: Performed By: #### L 100.0100 ####[facility] [address] [place], [address] WBC (Bld) [#/Vol] 13.4 10*3/uL High 4.4-11.0 [facility] Comment on above: Performed By: #### L 100.0100 ####[facility] [address] [place], [address] CTA Chest W/WO Contraston CTA Chest W/WO Contrast Normal [facility] Chest PA and Lateralon 04-30 Chest PA and Lateral Normal [facility] D-Dimer Quantitative (DVT/PE )on 04-30-2024 D-DIMER QUANT 0.83 FEU/ug/m Invalid Interpretation Code 0.27-0.49 [facility] Comment on above: Result Comment: D-Di rand ELEVATED (>0.49): Additional studies and clinicalassessments are indicated to conclude diagnosis of:Deep Vein Thrombosis (DVT) or Pulmonary Embolism (PE)CRITICAL VALUE CALLED TO [facility]04/30/24 07 Yessenia Kern.RESULTS READ BACK BY SAME. Performed By: #### L 500.2500, L501.9520, L300.8000, L501.5200, L503.6620 ####[facility] [address] [place], [address] D-dimer measurement for deep venous thrombosisOrdered By: Aravind Recio on 04-30-2024 D-Dimer Quantitative (PE/DVT) 0.83 FEU/ug/m High 0.27-0.49 [facility] Comment on above: D-Dimer ELEVATED (>0 .49): Additional studies and clinicalassessments are indicated to conclude diagnosis of:Deep Vein Thrombosis (DVT) or Pulmonary Embolism (PE)CRITICAL VALUE CALLED TO [facility]04/30/24 07 Yessenia Kern.RESULTS READ BACK BY SAME. Direct serum free thyroxine (FT4) measurementOrdered By: Susan Duran on 04-30-2024 Free T4 [Mass/Vol] 1.90 ng/dL High 0.76-1.46 [facility] Emergency Department Summary on 04-30-2024 Emergency Department Summary Normal [facility] Epithelial cells.renal LM.HP F (Urine sed) [#/Area]Ordered By: Aravind Recio on 04-30-2024 Urine Renal Epithelial Cells 0-5 SEEN /hpf 0-5 [facility] Epithelial cells.squamous LM Ql (Urine sed)Ordered By: Aravind Recio on 04-30-2024 Epithelial cells.squamous LM.HPF (Urine sed) [#/Area] 5 /[HPF] 5-10 [facility] Glucose Ql (U)Ordered By: Yanira Recio on 04-30-2024 Urine Glucose (UA) Normal mg/dl Normal [facility] H AND P Exam - [facility] 04-30-2024 H&P Exam - Hospitalist Normal [facility] Influenza virus A and B and SARS-CoV-2 (COVID-19) and Respiratory syncytial virus RNAOrdered By: Aravind Hemal on 04-30-2024 SARS-CoV-2 (COVID-19) RNA DUSTIN+probe Ql (Unsp spec) [facility] International normalized rat io (INR) calculationOrdered By: Aravind Andmyranda on 04-30-2024 INR Coag (Bld) [Relative time] 1.2 {INR} [facility] Ketones Test strip Ql (U)Ord ered By: Aravind Hemal on 04-30-2024 Ketones Ql (U) Negative Negative [facility] L501.4020on 04-30-2024 TROPONIN-I HS 43 pg/mL Normal 3.0-54.0 [facility] Comment on above: Order Comment: Comme nts: SPECIMEN #3'TROP' Serial specimen #1, #2 or #3: 3 Result Comment: Plea se Note: New Test Units and Gender Specific Reference Ranges. For more information see Policy Stat Procedure [place] High Sensitivity Troponin (TNIH) and attachments. Performed By: #### L 501.4020 ####[facility] [address] [place], [place], [address] TROPONIN-I HS 56 pg/mL High 3.0-54.0 [facility] Comment on above: Order Comment: Comme nts: SPECIMEN #2'TROP' Serial specimen #1, #2 or #3: 2 Result Comment: Plea se Note: New Test Units and Gender Specific Reference Ranges. For more information see Policy Stat Procedure [place] High Sensitivity Troponin (TNIH) and attachments. Performed By: #### L 501.4020 ####[facility] [address] [place], [place], [address] TROPONIN-I HS 65 pg/mL High 3.0-54.0 [facility] Comment on above: Order Comment: 'TROP ' Serial specimen #1, #2 or #3: 1 Result Comment: Plea se Note: New Test Units and Gender Specific Reference Ranges. For more information see Policy Stat Procedure [place] High Sensitivity Troponin (TNIH) and attachments. Performed By: #### L 501.4020 ####[facility] [address] [place], [address] Lipaseon 04-30-2024 Lipase [Catalytic activity/Vol] 12 U/L Low 13-75 [facility] Comment on above: Result Comment: Tomasa garcia note:LIPASE revised reference range effective 22.New Lipase methodology. Expected to produce lower valuesthan the previous assay method.NEW Reference Range: 13 - 75 U/L Performed By: #### L 501.2450, L500.3400 ####[facility] [address] [place], [address] Lipase measurementOrdered By : Aravind Recio on 04-30-2024 Lipase [Catalytic activity/Vol] 12 U/L Low 13-75 [facility] Comment on above: Please note:LIPASE r evised reference range effective 22. New Lipase methodology. Expected to produce lower values than the previous assay method. NEW Reference Range: 13 - 75 U/L Liver Profileon 04-30-2024 Albumin [Mass/Vol] 3.2 g/dL Normal 3.2-5.0 [facility] Comment on above: Performed By: #### L 501.2450, L500.3400 ####[facility] [address] [place], [address] ALK P 96 U/L Normal 45-117 [facility] Comment on above: Performed By: #### L 501.2450, L500.3400 ####[facility] [address] [place], [address] ALT [Catalytic activity/Vol] 27 U/L Normal 13-56 [facility] Comment on above: Performed By: #### L 501.2450, L500.3400 ####[facility] [address] [place], [address] AST [Catalytic activity/Vol] 19 U/L Normal 15-37 [facility] Comment on above: Performed By: #### L 501.2450, L500.3400 ####[facility] [address] [place], [address] Bilirubin [Mass/Vol] 2.20 mg/dL High 0.20-1.00 [facility] Comment on above: Result Comment: For patients on eltrombopag therapy, use of Dimension [place] TBIL is not recommended. Performed By: #### L 501.2450, L500.3400 ####[facility] [address] [place], [address] Bilirubin.direct [Mass/Vol] 0.52 mg/dL High 0.00-0.30 [facility] Comment on above: Performed By: #### L 501.2450, L500.3400 ####[facility] [address] [place], [address] Globulin (S) [Mass/Vol] 4.0 g/dL Normal 2.2-4.2 [facility] Comment on above: Performed By: #### L 501.2450, L500.3400 ####[facility] [address] [place], [address] T PROT 7.2 g/dL Normal 6.4-8.2 [facility] Comment on above: Performed By: #### L 501.2450, L500.3400 ####[facility] [address] [place], [address] M100.678on 04-30-2024 M100.678 Pending SARS-CoV-2 (COVID 19) Negative INFLUENZA A Negative INFLUENZA B Negative RSV PCR Negative Normal [facility] Comment on above: Performed By: #### L 400.0001, M100.678 ####[facility] [address] [place], [address] Magnesiumon 04-30-2024 Magnesium [Mass/Vol] 2.0 mg/dL Normal 1.6-2.6 [facility] Comment on above: Performed By: #### L 500.2500, L501.9520, L300.8000, L501.5200, L503.6620 ####[facility] [address] [place], [address] Magnesium measurementOrdered By: Aravind Recio on 04-30-2024 Magnesium [Mass/Vol] 2.0 mg/dL 1.6-2.6 [facility] Microscopic analysis of urin e for red blood cells (RBC)Ordered By: Aravind Recio on 04-30-2024 Urine RBC 0-5 SEEN /hpf 0-5 [facility] Mucus LM Ql (Urine sed)Order ed By: Aravind Recio on 04-30-2024 Mucus Ql (Urine sed) 0 SEEN /hpf [facility] Nitrite Test strip Ql (U)Ord ered By: Aravind Recio on 04-30-2024 Nitrite Ql (U) Negative Negative [facility] Partial Thromboplast Timeon 04-30-2024 aPTT Coag (Bld) [Time] 32.3 s Normal 24.1-36.2 [facility] Comment on above: Performed By: #### L 300.3900, L300.4310 ####[facility] [address] [place], [address] Protein Test strip Ql (U)Ord ered By: Aravind Recio on 04-30-2024 Protein Ql (U) 15 mg/dl High Negative [facility] Prothrombin Time w/INRon INR Coag (PPP) [Relative time] 1.2 {INR} Normal [facility] Comment on above: Performed By: #### L 300.3900, L300.4310 ####[facility] [address] [place], [address] PT Coag (PPP) [Time] 14.9 s Normal 11.7-14.9 [facility] Comment on above: Performed By: #### L 300.3900, L300.4310 ####[facility] [address] [place], [address] Prothrombin timeOrdered By: Aravind Recio on 04-30-2024 PT Coag (PPP) [Time] 14.9 s 11.7-14.9 [facility] RESPIRATORY PANEL MOLECULARo n 04-30-2024 RP PANEL Normal [facility] Comment on above: Performed By: #### M 100.638 ####[facility] [address] [place], [place], [id number] Respiratory pathogens DNA an d RNA panel DUSTIN+probe (Resp)Ordered By: Susan Duran on 04-30-2024 Respiratory Panel (PCR) W [facility] T4 Free Directon 04-30-2024 T4 FREE DIRECT 1.90 ng/dL High 0.76-1.46 [facility] Comment on above: Performed By: #### L 506.0400 ####[facility] [address] [place], [place], [address] TSH QnOrdered By: Norbert on 04-30-2024 Thyroid Stimulating Hormone (TSH) 4.070 uIU/mL High 0.358-3.740 [facility] Thyroid Stim Hormone (TSH)on 04-30-2024 TSH 4.070 uIU/mL High 0.358-3.740 [facility] Comment on above: Performed By: #### L 500.2500, L501.9520, L300.8000, L501.5200, L503.6620 ####[facility] [address] [place], [place], [address] Transitional cells LM Ql (Ur ine sed)Ordered By: Aravind Recio on 04-30-2024 Urine Transitional Epithelial Cells 0-5 SEEN /hpf 0-5 [facility] Troponin IOrdered By: Susan Duran on 04-30-2024 Troponin I High Sensitivity 43 pg/mL 3.0-54.0 [facility] Comment on above: Please Note: New Destiney t Units and Gender Specific Reference Ranges. For more information see Policy Stat Procedure [place] High Sensitivity Troponin (TNIH) and attachments. Urinalysis, Completeon 04-30 AMORPHOUS 1+ Normal [facility] Comment on above: Order Comment: LISANDRA CTOR TO SPECIFY Performed By: #### L 400.0001, ####[facility] [address] [place], [address] BACTERIA 2+ /hpf Normal None Seen [facility] Comment on above: Order Comment: LISANDRA CTOR TO SPECIFY Performed By: #### L 400.0001, ####[facility] [address] [place], [address] EPI,RENAL 0-5 SEEN Normal 0-5 [facility] Comment on above: Order Comment: LISANDRA CTOR TO SPECIFY Performed By: #### L 400.0001, ####[facility] [address] [place], [address] EPI,SQUAMOUS 5-10 SEEN Normal 5-10 [facility] Comment on above: Order Comment: LISANDRA CTOR TO SPECIFY Performed By: #### L 400.0001, ####[facility] [address] [place], [address] EPI,TRANSITION 0-5 SEEN Normal 0-5 [facility] Comment on above: Order Comment: LISANDRA CTOR TO SPECIFY Performed By: #### L 400.0001, 8 ####[facility] [address] [place], [address] RBC 0-5 SEEN Normal 0-5 [facility] Comment on above: Order Comment: LISANDRA CTOR TO SPECIFY Performed By: #### L 400.0001, ####[facility] [address] [place], [address] WBC 0-5 SEEN Normal 0-5 [facility] Comment on above: Order Comment: LISANDRA CTOR TO SPECIFY Performed By: #### L 400.0001, 8 ####[facility] [address] [place], [address] Mucus Ql (Urine sed) 0 SEEN Normal [facility] Comment on above: Order Comment: COLLE CTOR TO SPECIFY Performed By: #### L 400.0001, M100.678 ####[facility] [address] [place], [place], [address] Urine blood detectionOrdered By: Aravind Recio on 04-30-2024 Urine Occult Blood Negative Negative [facility] Urine clarityOrdered By: Addy Recio on 04-30-2024 Clarity (U) Clear Clear [facility] Urine color determinationOrd ered By: Aravind Recio on 04-30-2024 Color (U) Yellow Yellow [facility] Urine cultureOrdered By: Aut umn White on 04-30-2024 Bacteria identified Cx Nom (U) Positive Abnormal [facility] Urine leukocyte esterase det ection by dipstickOrdered By: Aravind Recio on 04-30-2024 Leukocyte esterase Test strip Ql (U) 100 /ul High Negative [facility] Urine pHOrdered By: Aravind thomas on 04-30-2024 pH (U) 7.0 [pH] 5.0 - 8.0 [facility] Urine sediment bacteria coun t by microscopy (number/high power field)Ordered By: Aravind Recio on 04-30-2024 Bacteria LM.HPF (Urine sed) [#/Area] 2 /[HPF] None Seen [facility] Urine specific gravity measu rementOrdered By: Aravind Recio on 04-30-2024 Specific gravity (U) [Rel density] 1.010 1.002-1.030 [facility] Urobilinogen Ql (U)Ordered B y: Aravind Recio on 04-30-2024 Urobilinogen (U) [Mass/Vol] 8 mg/dL High Normal [facility] White blood cell countOrdere d By: Aravind Recio on 04-30-2024 Urine WBC 0-5 SEEN /hpf 0-5 [facility] aPTT Coag (PPP) [Time]Ordere d By: Aravind Recio on 04-30-2024 aPTT Coag (Bld) [Time] 32.3 s 24.1-36.2 [facility] Tele[facility] (FAMPWS) MICHAEL MEIER ([id number]) 1940 F Date Time Provider Department 04/24/24 [facility] During your visit today, we recorded [...] SULFA (SULFONAMIDE ANTIBIOTICS) 03/17/2001 Comments: hives VICODIN (HYDROCODONE-ACETAMINO PHE*01/08/2005 5 - Intolerance Comments: dizzy,nausea,vomiting, headache ZITHROMAX (AZITHROMYCIN) 05/20/2017 5 - Intolerance Date Reviewed: 04/10/2024 Reviewed by: Sharon Jarrett APRN.BRIDGE BUILDER - Fully Assessed Reason for Visit: Leg [...] SKIN FACE NEC [D23.30] 01/20/2007 01/09/2012 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 01/09/2012 DYSMETABOLIC SYNDROME X [...] (more content not included)... Normal [facility] CNTHERAPYon 04-20-2024 CNTHERAPY OT/PT/Speech Visit (LDPT) MICHAEL MEIER ([id number]) 1940 F Date Time Provider Department 04/20/24 12:45 PM SARAH MERCHANT LDPT Date Time Provider Department Center 04/20/2024 12:45 PM [id number], CARLA LDPT [facility] Reason for Visit: Physical Therapy [503] [...] SULFA (SULFONAMIDE ANTIBIOTICS) 03/17/2001 Comments: hives VICODIN (HYDROCODONE-ACETAMINO PHE*01/08/2005 5 - Intolerance Comments: dizzy,nausea,vomiting, headache ZITHROMAX (AZITHROMYCIN) 05/20/2017 5 - Intolerance Date Reviewed: 04/10/2024 Reviewed by: Sharon Jarrett APRN.BRIDGE BUILDER - Fully Assessed Prescriptions as of 07/03/2024 [...] once daily. Normal [facility] [id number] 04-18-2024 [id number] HNO ID: [id number] Author: SARAH MERCHANT PT Service: ? Author Type: Physical Therapist Type: [id number] Filed: 04/18/2024 19:04 Note Text: [facility] Physical Therapy Plan of Care Certification Patient Name: Michael Meier : 1940 [facility] #: [id number] Date: 04/18/2024 To: Geeta Cadet,* From Therapist: [...] for Episode of Care: created on 11/15/23 [place] in home exercise program. Patient will demonstrate [...] Patient to be seen for Therapeutic exercise (78639), Neuromuscular re-education (63525), Therapeutic activities (32217), Self-fci management (60434), Gait Training (49727), Patient/Family/Caregiv er Education, General Conditioning PLAN FOR NEXT VISIT: continue to progress endurance, strength, balance and gait. promote increased mobility/activity at home For further details regarding this patient refer to the Physical Therapy electronically documented visit dated 04/18/2024. Provider Attestation I have reviewed the treatment plan for Michael Augusta Meier, CCF# [id number] for the period of 04/18/24 -- 05/18/24, established on 04/18/2024. Signature certifies the need for therapy services. Normal [facility] CNTHERAPYon 04-18-2024 CNTHERAPY OT/PT/Speech Visit (LDPT) MICHAEL MEIER ([id number]) 1940 F Date Time Provider Department 04/18/24 1:30 PM SARAH MERCHANT LDFRANTZ Date Time Provider Department Center 04/18/2024 1:30 PM [id number], CARLA LDPT [facility] Reason for Visit: PT Progress Note [...] SULFA (SULFONAMIDE ANTIBIOTICS) 03/17/2001 Comments: imani VICODIN (HYDROCODONE-ACETAMINO PHE*01/08/2005 5 - Intolerance Comments: dizzy,nausea,vomiting, headache ZITHROMAX (AZITHROMYCIN) 05/20/2017 5 - Intolerance Date Reviewed: 04/10/2024 Reviewed by: Sharon Jarrett APRN.BRIDGE BUILDER - Fully Assessed Prescriptions as of 05/08/2024 [...] Normal [facility] CNOVon 04-10-2024 CN Office Visit (GENSWS ) MICHAEL MEIER ([id number]) 1940 F Date Time Provider Department 04/10/24 4:00 PM SHARON JARRETT During your visit today, we recorded the following information about you: Sharon Jarrett APRN.CNP 04/10/2024 4:04 PM Signed FOLLOW UP VISIT - ENDOSCOPY Michael Meier 1940 [id number] REFERRING PHYSICIAN: No referring provider defined for [...] as needed for worsening/no improvement. Sharon Jarrett APRN.BRIDGE BUILDER Allergies As of Date: 04/10/2024 Noted Allergy Reaction CIPROFLOXACIN 09/05/2018 2 - Rash DEMEROL (MEPERIDINE (PF)) 02/06/2011 11 - Vomiting OPIOIDS - MORPHINE ANALOGUES 03/17/2001 5 - Intolerance Comments: nausea, dizzy, sees things OPIOIDS-MEPERIDINE AND RELATED 02/17/2001 Comments: nausea/vomiting PENICILLIN G 02/17/2001 Comments: imani PRAVACHOL (PRAVASTATIN SODIUM) 03/09/2016 14 - Other: See Comments Comments: Leg cramps SULFA (SULFONAMIDE ANTIBIOTICS) 03/17/2001 Comments: imani VICODIN (HYDROCODONE-ACETAMINO PHE*01/08/2005 5 - Intolerance Comments: dizzy,nausea,vomiting, headache ZITHROMAX (AZITHROMYCIN) 05/20/2017 5 - Intolerance Date Reviewed: 04/10/2024 Reviewed by: Sharon Jarrett APRN.BRIDGE BUILDER - Fully Assessed Reason for Visit: Follow [...] (more content not included)... Normal [facility] ANES POSTPROC EVALon 024 ANES POSTPROC EVAL HNO ID: [id number] Author: YVONNE MANLEY MD Service: Anesthesiology Author Type: Anesthesiologist Type: Anesthesia Postprocedure Evaluation Filed: 03/31/2024 11:44 Note Text: POST ANESTHESIA EVALUATION NOTE : 1940 Procedure Summary Date: 03/31/24 Room / Location: [facility] Endoscopy Anesthesia Start: 1053 Anesthesia Stop: 1114 Procedure: EGD DIAGNOSTIC Diagnosis: Epigastric abdominal pain Pulmonary hypertension (HCC) (Epigastric abdominal pain) Scheduled Providers: Raymundo De León MD; Yvonne Manley MD; Kelsea Mo APRN.PRICING ASSOCIATE Responsible Provider: Yvonne Manley MD Anesthesia Type: [...] March 31, 2024 TIME: 11:44 AM CSN: [id number] Normal [facility] ANES PRE-OPon 03-31-2024 ANES PRE-OP HNO ID: [id number] Author: YVONNE MANELY MD Service: Anesthesiology Author Type: Anesthesiologist Type: Anesthesia Preprocedure Evaluation Filed: 03/31/2024 10:48 Note Text: ANESTHESIOLOGY DAY OF SURGERY NOTE : 1940 Procedure Information Date/Time: 03/31/24 1115 Scheduled providers: Raymundo De León MD; Yvonne Manley MD; Kelsea Mo APRN.PRICING ASSOCIATE Procedure: EGD DIAGNOSTIC Location: [facility] Endoscopy Estimated body mass index is 38.27 kg/m? as calculated from the following: Height as of 03/27/24: 165.1 cm (5' 5). Weight as of 03/27/24: 104.3 kg (230 lb). Most recent hematocrit and potassium results: Hematocrit 43.0 11/25/2023 Potassium 3.8 11/25/2023 Relevant Problems ANESTHESIA (+) JOSE on CPAP CARDIO (+) A-fib (HCC) (+) Cardiac resynchronization therapy pacemaker (RESEARCH LABORATORY MANAGER-P) in place (+) WELCH (dyspnea on exertion) [...] Surgery/Procedure. SIGNATURE (more content not included)... Normal [facility] EGD Study observation Carline goode 03-31-[address] [facility] Gastrointestinal Endoscopy Patient Name: Michael Meier Procedure Date: 03/31/2024 10:20 AM Date of : 1940 Admit Type: Outpatient Age: 83 Room: [facility] Gender: Female Note Status: Finalized Attending MD: Raymundo De León MD, [id number] Procedure: Upper GI endoscopy Indications: Epigastric abdominal [...] be scheduled. Procedure Code(s): --- Professional --- 59505, Esophagogastroduodenos copy, flexible, transoral; with biopsy, single or multiple Diagnosis Code(s): --- Professional --- K44.9, Diaphragmatic hernia without obstruction or gangrene K29.70, Gastritis, unspecified, without bleeding R10.13, Epigastric pain (more content not included)... PROVATION [facility] Radiology Study observation (narrative) [facility] HISTORY PHYSICALon HISTORY PHYSICAL HNO ID: [id number] Author: RAYMUNDO DE LÓEN MD Service: General Surgery Author Type: Physician Type: H&P Filed: 03/31/2024 10:47 Note Text: HISTORY AND PHYSICAL Michael Meier : 1940 REFERRING PHYSICIAN: Michael Puga [address] [facility] [address] CHIEF COMPLAINT: Patient presents with: Consult: EGD [...] was 01/[address] De León at [facility] Sedation:Midazolam 4 mg IV, Fentanyl 100 micrograms [...] Pravachol [Pravastatin Sodium], Sulfa (Sulfonamide Antibiotics), Vicodin [Hydrocodone-Acetamino phen], and Zithromax [Azithromycin] PAST MEDICAL HISTORY PAST [...] 11/15/2009 Knee replacement, (more content not included)... [facility] SURGICAL PATHOLOGYon CASE REPORT [facility] Comment on above: Order Comment: Speci men Type: TISSUE SPECIMEN Ordering Facility: [facility] Address: [address] [place] [address] Result Comment: Surg ica Pathology Report Case: [id number] Authorizing Provider: Raymundo De León MD Collected: 03/31/2024 11:01 AM Ordering Location: [facility] Endoscopy Received: 03/31/2024 12:34 PM Pathologist: Tanna Nathan MD Specimens: A) - Small Bowel, Duodenum, Biopsy B) - Stomach, Biopsy, r/o H. Pylori C) - Esophagus, Distal, Biopsy D) - Esophagus, Mid, Biopsy Performed By: #### S #### [facility] CLIA [id number] [address] [place] [address] STATES OF ROB FINAL DIAGNOSIS Normal [facility] Comment on above: Order Comment: Speci men Type: TISSUE SPECIMEN Ordering Facility: [facility] Address: [address] [place] [address] Result Comment: A. S mall bowel, duodenum, [...] AEB/kr 04/04/2024 Performed By: #### S #### [facility] CLIA [id number] [address] [place] [address] OF ROB FINAL PERFORMING LAB Normal [facility] Comment on above: Order Comment: Speci men Type: TISSUE SPECIMEN Ordering Facility: [facility] Address: [address] [place] [address] Result Comment: Diag nostic interpretation performed at [facility], [address] [place] [address] CLIA# [id number] Reporter: Todd Fields M.D. Performed By: #### S #### [facility] CLIA [id number] [address] [place] [address] STATES OF ROB GROSS DESCRIPTION Normal [facility] Comment on above: Order Comment: Speci men Type: TISSUE SPECIMEN Ordering Facility: [facility] Address: [address] [place] [address] Result Comment: A. S mall Bowel, Duodenum, [...] 0.2 cm. Totally submitted in one cassette. [facility] March 31, 2024 3:19 PM Gross examination [place] [address] Performed By: #### S #### [facility] CLIA [id number] [address] [place] [address] OF [facility] Upper GI endoscopyon 03-31-2 024 Upper GI endoscopy [facility] Gastrointestinal Endoscopy Patient Name: Michael Meier Procedure Date: 03/31/2024 10:20 AM Date of : 1940 Admit Type: Outpatient Age: 83 Room: [facility] Gender: Female Note Status: Finalized Attending MD: Raymundo De León MD, [id number] Procedure: Upper GI endoscopy Indications: Epigastric abdominal [...] be scheduled. Procedure Code(s): --- Professional --- 26567, Esophagogastroduodenos copy, flexible, transoral; with biopsy, single or multiple Diagnosis Code(s): --- Professional --- K44.9, Diaphragmatic hernia without obstruction or gangrene K29.70, Gastritis, unspecified, without bleeding R10.13, Epigastric pain R12, Heartburn CPT copyright 2020 [employer]. All rights reserved. The codes documented in this report are preliminary and upon mock up assembler review may be revised to meet current compliance requirements. Attending Participation: I personally performed the entire procedure. Scope In: 11:00:34 AM Scope Out: 11:04:24 AM MD Raymundo Juarez MD 03/31/2024 11:08:03 AM This report has been signed electronically by Raymundo De León MD Number of Addenda: 0 Note Initiated On: 03/31/2024 10:20 AM Estimated Blood Loss: Estimated blood loss was minimal. Normal [facility] HISTORY PHYSICALon HISTORY PHYSICAL HNO ID: [id number] Author: MARY FOSTER APRN.BRIDGE BUILDER Service: ? Author Type: Nurse Practitioner Type: [...] Assessment: c/w statin Cardiac resynchronization therapy pacemaker (RESEARCH LABORATORY MANAGER-P) in place Assessment: s/p 10/2021 ICD placement, [...] large neck Non-male patient STOP-Bang Score: 2 [id number] Score: Age: >=75 Sex: female CHF history: No Hypertension history: Yes Stroke/TIA/thromboembo lism history: Yes Vascular disease history: No Diabetes history: No [id number] Score: 6 ARISCAT Score: Age: >80 Preoperative [...] Romero present: no Lip Bite Test: I Microretrognathia/Micr onagthia/Recessed Chin: No DENTAL Dentures, upper: partial. Dentures, [...] in this encounter. REASON FOR VISIT: Michael Deras Alexandruabner is a 83 year old female who [...] (more content not included)... Normal [facility] CNTHERAPYon 03-23-2024 CNTHERAPY OT/PT/Speech Visit (LDPT) MICHAEL MEIER ([id number]) 1940 F Date Time Provider Department 03/23/24 12:45 PM SARAH MERCHANT LDPT Date Time Provider Department Center 03/23/2024 12:45 PM [id number], CARLA LDPT [facility] Reason for Visit: Physical Therapy [503] [...] SULFA (SULFONAMIDE ANTIBIOTICS) 03/17/2001 Comments: hives VICODIN (HYDROCODONE-ACETAMINO PHE*01/08/2005 5 - Intolerance Comments: dizzy,nausea,vomiting, headache ZITHROMAX (AZITHROMYCIN) 05/20/2017 5 - Intolerance Date [...] [facility] CN[facility]AP[facility]on 03-20-2024 CNTHERAPY OT/PT/Speech Visit (LDPT) MICHAEL MEIER ([id number]) 1940 F Date Time Provider Department 03/20/24 2:15 PM SARAH MERCHANT LDPT Date Time Provider Department Center 03/20/2024 2:15 PM [id number], CARLA LDPT [facility] Reason for Visit: Physical Therapy [503] [...] SULFA (SULFONAMIDE ANTIBIOTICS) 03/17/2001 Comments: hives VICODIN (HYDROCODONE-ACETAMINO PHE*01/08/2005 5 - Intolerance Comments: dizzy,nausea,vomiting, headache ZITHROMAX (AZITHROMYCIN) 05/20/2017 5 - Intolerance Date [...] [facility] CNTHERAPYon 03-16-2024 CNTHERAPY OT/PT/Speech Visit (LDPT) MICHAEL MEIER ([id number]) 1940 F Date Time Provider Department 03/16/24 12:45 PM SARAH MERCHANT LDPT Date Time Provider Department Center 03/16/2024 12:45 PM [id number], CARLA LDPT [facility] Reason for Visit: Physical Therapy [503] [...] SULFA (SULFONAMIDE ANTIBIOTICS) 03/17/2001 Comments: imani VICODIN (HYDROCODONE-ACETAMINO PHE*01/08/2005 5 - Intolerance Comments: dizzy,nausea,vomiting, headache ZITHROMAX (AZITHROMYCIN) 05/20/2017 5 - Intolerance Date [...] [facility] CNTHERAPYon 03-14-2024 CNTHERAPY OT/PT/Speech Visit (LDPT) HARDEEPMICHAEL Augusta ([id number]) 1940 F Date Time Provider Department 03/14/24 10:00 AM JOY SUN Date Time Provider Department Center 03/14/2024 10:00 AM [id number] SUN [facility] Reason for Visit: Physical Therapy [503] [...] SULFA (SULFONAMIDE ANTIBIOTICS) 03/17/2001 Comments: imani VICODIN (HYDROCODONE-ACETAMINO PHE*01/08/2005 5 - Intolerance Comments: dizzy,nausea,vomiting, headache ZITHROMAX (AZITHROMYCIN) 05/20/2017 5 - Intolerance Date Reviewed: 03/13/2024 Reviewed by: Portia Camarillo, GLYNN - Fully Assessed Prescriptions as of 03/14/2024 [...] 1 tablet by mouth once daily. Normal [facility] 03-13-2024 [facility] Office Visit (GENSWS ) MICHAEL MEIER ([id number]) 1940 F Date Time Provider Department 03/13/24 2:30 PM SHARON JARRETT GENS During your visit today, we recorded the following information about you: Temperature Pulse Blood pressure Weight 97.5 degrees 71/minute 184/75 105 kg Height 1.651 m Sharon Jarrett APRN.CARMELINA 03/13/2024 2:47 PM Signed HISTORY AND PHYSICAL Michael Meier : 1940 REFERRING PHYSICIAN: Michael Puga [address] [facility] [address] CHIEF COMPLAINT: Patient presents with: Consult: EGD [...] was 01/[address] De León at [facility] Sedation:Midazolam 4 mg IV, Fentanyl 100 micrograms [...] Pravachol [Pravastatin Sodium], Sulfa (Sulfonamide Antibiotics), Vicodin [Hydrocodone-Acetamino phen], and Zithromax [Azithromycin] PAST MEDICAL HISTORY Diagnosis Date A-fib ([facility]) Allergic rhinitis, cause unspecified Arrhythmia Arthritis Greater [...] (more content not included)... Normal [facility] Priscila 03-13-2024 CNPN Telephone ([employer]) MICHAEL MEIER ([id number]) 1940 F Date Time Provider Department 03/13/24 RAYMUNDO DE LEÓN [employer] During your visit today, we recorded the following information about you: Johsua Mcdowell 03/13/2024 2:44 PM Signed 03-31-2024 EGD [...] SULFA (SULFONAMIDE ANTIBIOTICS) 03/17/2001 Comments: hives VICODIN (HYDROCODONE-ACETAMINO PHE*01/08/2005 5 - Intolerance Comments: dizzy,nausea,vomiting, headache ZITHROMAX (AZITHROMYCIN) 05/20/2017 5 - Intolerance Date Reviewed: 03/13/2024 Reviewed by: Portia Camarillo, GLYNN - Fully Assessed Reason for Visit: 03-31-2024 [...] SKIN FACE NEC [D23.30] 01/20/2007 01/09/2012 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 01/09/2012 DYSMETABOLIC SYNDROME X [...] (more content not included)... Normal [facility] CNPNon 03-08-2024 CNPN Telephone (FAMPWS) MICHAEL MEIER ([id number]) 1940 F Date Time Provider Department 03/08/24 MICAHEL PUGA [facility] During your visit today, we recorded [...] SULFA (SULFONAMIDE ANTIBIOTICS) 03/17/2001 Comments: hivmyranda VICODIN (HYDROCODONE-ACETAMINO PHE*01/08/2005 5 - Intolerance Comments: dizzy,nausea,vomiting, headache ZITHROMAX (AZITHROMYCIN) 05/20/2017 5 - Intolerance Date [...] SKIN FACE NEC [D23.30] 01/20/2007 01/09/2012 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 01/09/2012 DYSMETABOLIC SYNDROME X [...] (more content not included)... Normal [facility] CNTHERAPYon 03-02-2024 CNTHERAPY OT/PT/Speech Visit (LDPT) MICHAEL MEIER ([id number]) 1940 F Date Time Provider Department 03/02/24 12:45 PM SARAH MERCHANT LDPT Date Time Provider Department [place] 03/02/2024 12:45 PM [id number], CARLA LDPT [facility] Reason for Visit: Physical Therapy [503] [...] SULFA (SULFONAMIDE ANTIBIOTICS) 03/17/2001 Comments: hives VICODIN (HYDROCODONE-ACETAMINO PHE*01/08/2005 5 - Intolerance Comments: dizzy,nausea,vomiting, headache ZITHROMAX (AZITHROMYCIN) 05/20/2017 5 - Intolerance Date [...] by mouth once daily. [facility] MICHAEL MEIER ([id number]) 1940 F Date Time Provider Department 03/01/24 5:40 PM MICHAEL PUGA [facility] During your visit today, we recorded [...] at 1.6 with recent lab check at [place] [facility] in Jan at [facility] JOSE, she is using her Bipap [...] Chronic dyspnea, has been fully evaluated by [place] whom doesn't feel this is due to cardiac cause, feels it is due to her COPD. She is willing to try a controller medication/inhaler, gets some temporary relief with albuterol PAST MEDICAL HISTORY Diagnosis Date A-fib ([facility]) Allergic rhinitis, cause unspecified Arrhythmia Arthritis Greater trochanteric bursitis of left hip Melanoma of skin, site unspecified 2003 back Osteoarthritis of left hip Other and unspecified hyperlipidemia Situational mixed anxiety and depressive disorder Sleep apnea Stroke ([facility]) Unspecified essential hypertension Unspecified gastritis and gastroduodenitis PAST SURGICAL HISTORY Procedure Laterality Date ABDOMINAL SURGERY HX APPENDECTOMY HX ARTHRP ACETBLR/PROX FEM PROSTC AGRFT/ALGRFT 12/09/2003 right hip, redone, 07/2004 ARTHRP ACETBLR/PROX FEM PROSTC AGRFT/ALGRFT Left 07/2016 ARTHRP E CONDYLEANDPLATU MEDIALANDLAT COMPARTMENTS 11/15/2009 Knee replacement, total -Left - [facility] ARTHRP E CONDYLEANDPLATU MEDIALANDLAT COMPARTMENTS 12/30/2009 Right knee replaced COLONOSCOPY FLX DX W/COLLJ SPEC WHEN PFRMD 06/29/2017 Colonoscopy EGD 10/17/2020 EGD W/O [facility] SPEC VARICIES INJ 01/08/2022 ESOPHAGOGASTRODUODENOS COPY TRANSORAL DIAGNOSTIC 11/29/2000 EGD ESOPHAGOGASTRODUODENOS COPY TRANSORAL DIAGNOSTIC 06/29/2017 EGD JOINT REPLACEMENT HX [...] daily. sucralfa (more content not included)... Normal [facility] 03-01-2024 [facility] Telephone (FAMPWS) MICHAEL MEIER ([id number]) 1940 F Date Time Provider Department 03/01/24 [facility] During your visit today, we recorded the following information about you: Michael Puga DO 03/01/2024 10:51 PM Signed Fax my office note from today and standard wheelchair [facility] and then notify her Michael Alyssa PugaDO Brigette [place], [place] 03/02/2024 1:33 PM Addendum Faxed to DM in [place]. Left message to return call. Please notify [...] SULFA (SULFONAMIDE ANTIBIOTICS) 03/17/2001 Comments: hives VICODIN (HYDROCODONE-ACETAMINO PHE*01/08/2005 5 - Intolerance Comments: dizzy,nausea,vomiting, headache ZITHROMAX (AZITHROMYCIN) 05/20/2017 5 - Intolerance Date [...] SKIN FACE NEC [D23.30] 01/20/2007 01/09/2012 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 01/09/2012 DYSMETABOLIC SYNDROME X [...] (more content not included)... Normal [facility] CNTHERAPYon 02-17-2024 CNTHERAPY OT/PT/Speech Visit (LDPT) MICHAEL MEIER ([id number]) 1940 F Date Time Provider Department 02/17/24 3:45 PM SARAH MERCHANT Date Time Provider Department Center 02/17/2024 3:45 PM [id number] MERCHANT [facility] Reason for Visit: PT Progress Note [...] SULFA (SULFONAMIDE ANTIBIOTICS) 03/17/2001 Comments: hives VICODIN (HYDROCODONE-ACETAMINO PHE*01/08/2005 5 - Intolerance Comments: dizzy,nausea,vomiting, headache ZITHROMAX (AZITHROMYCIN) 05/20/2017 5 - Intolerance Date [...] [facility] CNTHERAPYon 02-14-2024 CNTHERAPY OT/PT/Speech Visit (LDPT) MICHAEL MEIER ([id number]) 1940 F Date Time Provider Department 02/14/24 1:30 PM WILFRED MCCLELLAN Date Time Provider Department Center 02/14/2024 1:30 PM [id number], PATRICK LDPT [facility] Reason for Visit: Physical Therapy [503] [...] SULFA (SULFONAMIDE ANTIBIOTICS) 03/17/2001 Comments: hives VICODIN (HYDROCODONE-ACETAMINO PHE*01/08/2005 5 - Intolerance Comments: dizzy,nausea,vomiting, headache ZITHROMAX (AZITHROMYCIN) 05/20/2017 5 - Intolerance Date [...] 1 tablet by mouth once daily. Normal [facility] CNTHERAPYon 02-10-2024 CNTHERAPY OT/PT/Speech Visit (LDPT) MICHAEL MEIER ([id number]) 1940 F Date Time Provider Department 02/10/24 12:45 PM SARAH MERCHANT LDPT Date Time Provider Department Center 02/10/2024 12:45 PM [id number], CARLA LDPT [facility] Reason for Visit: Physical Therapy [503] [...] SULFA (SULFONAMIDE ANTIBIOTICS) 03/17/2001 Comments: hives VICODIN (HYDROCODONE-ACETAMINO PHE*01/08/2005 5 - Intolerance Comments: dizzy,nausea,vomiting, headache ZITHROMAX (AZITHROMYCIN) 05/20/2017 5 - Intolerance Date [...] [facility] CNTHERAPYon 02-07-2024 CNTHERAPY OT/PT/Speech Visit (LDPT) MICHAEL MEIER ([id number]) 1940 F Date Time Provider Department 02/07/24 2:15 PM SARAH MERCHANT LDPT Date Time Provider Department Center 02/07/2024 2:15 PM [id number], CARLA LDPT [facility] Reason for Visit: Physical Therapy [503] [...] SULFA (SULFONAMIDE ANTIBIOTICS) 03/17/2001 Comments: hives VICODIN (HYDROCODONE-ACETAMINO PHE*01/08/2005 5 - Intolerance Comments: dizzy,nausea,vomiting, headache ZITHROMAX (AZITHROMYCIN) 05/20/2017 5 - Intolerance Date [...] [facility] Echo Completeon 02-02-2024 Echo Complete Normal [facility] CNTHERAPYon 01-31-2024 CNTHERAPY OT/PT/Speech Visit (LDPT) MICHAEL MIEER ([id number]) 1940 F Date Time Provider Department 01/31/24 2:15 PM SARAH MERCHANT LDPT Date Time Provider Department Center 01/31/2024 2:15 PM [id number], CARLA LDPT [facility] Reason for Visit: Physical Therapy [503] [...] SULFA (SULFONAMIDE ANTIBIOTICS) 03/17/2001 Comments: hives VICODIN (HYDROCODONE-ACETAMINO PHE*01/08/2005 5 - Intolerance Comments: dizzy,nausea,vomiting, headache ZITHROMAX (AZITHROMYCIN) 05/20/2017 5 - Intolerance Date [...] [facility] CNTHERAPYon 01-26-2024 CNTHERAPY OT/PT/Speech Visit (LDPT) MICHAEL MEIER ([id number]) 1940 F Date Time Provider Department 01/26/24 3:00 PM WILFRED MCCLELLAN Date Time Provider Department Center 01/26/2024 3:00 PM [id number], PATRICK LDFRANTZ [facility] Reason for Visit: Physical Therapy [503] [...] SULFA (SULFONAMIDE ANTIBIOTICS) 03/17/2001 Comments: imani VICODIN (HYDROCODONE-ACETAMINO PHE*01/08/2005 5 - Intolerance Comments: dizzy,nausea,vomiting, headache ZITHROMAX (AZITHROMYCIN) 05/20/2017 5 - Intolerance Date [...] [facility] 12 Lead EKG performed by [facility] on 01-25-2024 12 Lead EKG performed by [facility] Normal [facility] BNP,B-Type NATRIURETIC PEPTI Kenyatta 01-25-2024 Natriuretic peptide B (Bld) [Mass/Vol] 127.2 pg/mL High 0-100 [facility] Comment on above: Performed By: #### L 501.9520, L500.2500, L503.6620 ####[facility] [address] [place], [address] Basic Metabolic Profile (BMP )on 01-25-2024 BUN/CRE 27.3 RATIO High 10-20 [facility] Comment on above: Performed By: #### L 501.9520, L500.2500, L503.6620 ####[facility] [address] [place], [address] CA,Total 8.9 mg/dL Normal 8.5-10.1 [facility] Comment on above: Performed By: #### L 501.9520, L500.2500, L503.6620 ####[facility] [address] [place], [address] Chloride [Moles/Vol] 105 mmol/L Normal 98-107 [facility] Comment on above: Performed By: #### L 501.9520, L500.2500, L503.6620 ####[facility] [address] [place], [address] CO2 [Moles/Vol] 30.0 mmol/L Normal 21.0-32.0 [facility] Comment on above: Performed By: #### L 501.9520, L500.2500, L503.6620 ####[facility] [address] [place], [address] Creatinine [Mass/Vol] 0.55 mg/dL Normal 0.55-1.02 [facility] Comment on above: Result Comment: The validity of the calculated GFR GFRAA in patients over70 years has not been determined. Clinical correlation isessential. Performed By: #### L 501.9520, L500.2500, L503.6620 ####[facility] [address] [place], [address] EST GFR - AA 136 mL/min Normal >60 [facility] Comment on above: Result Comment: Afri can Croatian GFR Calc Performed By: #### L 501.9520, L500.2500, L503.6620 ####[facility] [address] [place], [address] GAP 6 Normal 5-15 [facility] Comment on above: Performed By: #### L 501.9520, L500.2500, L503.6620 ####[facility] [address] [place], [address] GFR/1.73 sq M.predicted among non-blacks MDRD (S/P/Bld) [Vol rate/Area] 112 mL/min/{1.73_m2} Normal >60 [facility] Comment on above: Result Comment: Non- GFR Calc Performed By: #### L 501.9520, L500.2500, L503.6620 ####[facility] [address] [place], [address] Glucose [Mass/Vol] 109 mg/dL High 74-106 [facility] Comment on above: Result Comment: Fast ing Glucose result from 100 to 125 mg/dLsuggests IMPAIRED HOMEOSTASIS per A.D.A. criteria. Performed By: #### L 501.9520, L500.2500, L503.6620 ####[facility] [address] [place], [address] Potassium [Moles/Vol] 3.2 mmol/L Low 3.5-5.1 [facility] Comment on above: Performed By: #### L 501.9520, L500.2500, L503.6620 ####[facility] [address] [place], [address] Sodium [Moles/Vol] 141 mmol/L Normal 136-145 [facility] Comment on above: Performed By: #### L 501.9520, L500.2500, L503.6620 ####[facility] [address] [place], [address] Urea nitrogen [Mass/Vol] 15 mg/dL Normal 7-18 [facility] Comment on above: Performed By: #### L 501.9520, L500.2500, L503.6620 ####[facility] [address] [place], [address] Cardiology Visit Reporton Cardiology Visit Report Normal W [facility] Thyroid Stim Hormone (TSH)on 01-25-2024 TSH 1.600 uIU/mL Normal 0.358-3.740 [facility] Comment on above: Performed By: #### L 501.9520, L500.2500, L503.6620 ####[facility] [address] [place], [address] [id number] 01-18-2024 [id number] HNO ID: [id number] Author: SARAH MERCHANT, FRANTZ Service: ? Author Type: Physical Therapist Type: [id number] Filed: 01/18/2024 16:07 Note Text: [facility] Physical Therapy Plan of Care Certification Patient Name: Michael Meier : 1940 [facility] #: [id number] Date: 01/18/2024 To: Geeta Cadet,* From Therapist: [...] on 11/15/23 through 01/14/24, extended thru 04/17/24 [place] in home exercise program. Patient will demonstrate [...] Patient to be seen for Therapeutic exercise (05371), Neuromuscular re-education (78939), Therapeutic activities (83389), Self-fci management (37552), Gait Training (98197), Patient/Family/Caregiv er Education, General Conditioning PLAN FOR NEXT VISIT: continue to progress LE strength, balance, gait AND endurance For further details regarding this patient refer to the Physical Therapy electronically documented visit dated 01/18/2024. Provider Attestation I have reviewed the treatment plan for Michael Meier, CCF# [id number] for the period of 01/18/24 -- 04/17/24, established on 01/18/2024. Signature certifies the need for therapy services. Normal [facility] CNTHERAPYon 01-18-2024 CNTHERAPY OT/PT/Speech Visit (LDPT) MICHAEL MEIER ([id number]) 1940 F Date Time Provider Department 01/18/24 1:30 PM SARAH MERCHANT LDPT Date Time Provider Department Center 01/18/2024 1:30 PM [id number], CARLA LDPT [facility] Reason for Visit: PT Progress Note [...] SULFA (SULFONAMIDE ANTIBIOTICS) 03/17/2001 Comments: hives VICODIN (HYDROCODONE-ACETAMINO PHE*01/08/2005 5 - Intolerance Comments: dizzy,nausea,vomiting, headache ZITHROMAX (AZITHROMYCIN) 05/20/2017 5 - Intolerance Date [...] by mouth once daily. [facility] ([facility]) MICHAEL MEIER ([id number]) 1940 F Date Time Provider Department 01/10/24 MICHAEL PUGA [facility] During your visit today, we recorded [...] SULFA (SULFONAMIDE ANTIBIOTICS) 03/17/2001 Comments: hives VICODIN (HYDROCODONE-ACETAMINO PHE*01/08/2005 5 - Intolerance Comments: dizzy,nausea,vomiting, headache ZITHROMAX (AZITHROMYCIN) 05/20/2017 5 - Intolerance Date Reviewed: 12/01/2023 Reviewed by: Julianna Cano LPN - Fully Assessed Reason for Visit: Wheelchair order [Other] Primary Visit Diagnosis:Arthritis, multiple joint involvement [M12.9] Other Visit Diagnosis:Spinal stenosis of lumbar region without neurogenic claudication [M48.061] Order(s):STANDARD WHEELCHAIR [[id number]] Order #: [id number] Prescriptions as of 01/11/2024 - levothyroxine (SYNTHROID) [...] SKIN FACE NEC [D23.30] 01/20/2007 01/09/2012 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 01/09/2012 DYSMETABOLIC SYNDROME X [...] (more content not included)... Normal [facility] CNTHERAPYon 12-13-2023 CNTHERAPY OT/PT/Speech Visit (LDPT) MICHAEL MEIER ([id number]) 1940 F Date Time Provider Department 12/13/23 3:45 PM SARAH MERCHANT LDPT Date Time Provider Department Center 12/13/2023 3:45 PM [id number], CARLA LDPT [facility] Reason for Visit: Physical Therapy [503] [...] SULFA (SULFONAMIDE ANTIBIOTICS) 03/17/2001 Comments: hives VICODIN (HYDROCODONE-ACETAMINO PHE*01/08/2005 5 - Intolerance Comments: dizzy,nausea,vomiting, headache ZITHROMAX (AZITHROMYCIN) 05/20/2017 5 - Intolerance Date [...] daily. Normal [facility] CNTHERAPYon 12-07-2023 CNTHERAPY OT/PT/Speech Visit (LDPT) MICHAEL MEIER ([id number]) 1940 F Date Time Provider Department 12/07/23 4:30 PM WILFRED MCCLELLAN Date Time Provider Department Center 12/07/2023 4:30 PM [id number] MCCLELLAN [facility] Reason for Visit: Physical [...] SULFA (SULFONAMIDE ANTIBIOTICS) 03/17/2001 Comments: imani VICODIN (HYDROCODONE-ACETAMINO PHE*01/08/2005 5 - Intolerance Comments: dizzy,nausea,vomiting, headache ZITHROMAX (AZITHROMYCIN) 05/20/2017 5 - Intolerance Date [...] Take 1 tablet by mouth once daily. Electrician Helper: Therapy (PT/OT/Speech/Resp) ID: [id number] 12/07/2023 5:18 PM Author: WILFRED MCCLELLAN Signed by WILFRED MCCLELLAN CONCRETE M[employer]ING [employer]ANT [employer]ORER on 12/07/2023 at 5:18 PM Document text: Program_ID:[id number] Access Code: [email or web address] URL: [email or web address]/ Date: 12-07-2023 Prepared By: Margoth Mcclellan Program Notes Exercises - Seated Hip Abduction - 1-2 x daily - 5 x weekly - 2-3 sets - 10 reps -- Normal [facility] THERAPY NTon 12-07-2023 THERAPY NT HNO ID: [id number] Author: WILFRED MCCLELLAN PTA Service: ? Author Type: Solar Project Manager Type: Therapy (PT/OT/Speech/Resp) Filed: 12/07/2023 17:18 Note Text: Program_ID:[id number] Access Code: [email or web address] URL: [email or web address]/ Date: 12-07-2023 Prepared By: Margoth Mcclellan Program Notes Exercises - Seated Hip Abduction - 1-2 x daily - 5 x weekly - 2-3 sets - 10 reps Normal [facility] CBC W Auto Differential pane l (Bld)on 11-25-2023 Basophils (Bld) [#/Vol] 0.10 10*3/uL Normal <0.11 [facility] Comment on above: Order Comment: Speci men Type: BLOOD SPECIMENOrdering Facility: [facility] Address: [address] [place] [address] Performed By: #### 5 7021-8 ####[facility] [place] LABCLIA [id number] [place] [address] [place] Basophils/100 WBC (Bld) 1.3 % Normal A [facility] Comment on above: Order Comment: Speci men Type: BLOOD SPECIMENOrdering Facility: [facility] Address: [address] [place] [address] Performed By: #### 5 7021-8 ####[facility] [place] LABCLIA [id number] [place] [address] [facility] Differential cell count method Nom (Bld) Auto Normal [facility] Comment on above: Order Comment: Speci men Type: BLOOD SPECIMENOrdering Facility: [facility] Address: [address] [place] [address] Performed By: #### 5 7021-8 ####[facility] [place] LABCLIA [id number] [place] [address] [facility] Eosinophils (Bld) [#/Vol] 0.23 10*3/uL Normal <0.46 [facility] Comment on above: Order Comment: Speci men Type: BLOOD SPECIMENOrdering Facility: [facility] Address: [address] [place] [address] Performed By: #### 5 7021-8 ####[facility] [place] LABCLIA [id number] [place] [address] [place] [facility] Eosinophils/100 WBC (Bld) 3.0 % Normal [facility] Comment on above: Order Comment: Speci men Type: BLOOD SPECIMENOrdering Facility: [facility] Address: [address] [place] [address] Performed By: #### 5 7021-8 ####[facility] [place] LABCLIA [id number] [place] [address] [facility] Erythrocyte distribution width (RBC) [Ratio] 14.6 % Normal 11.5-15.0 [facility] Comment on above: Order Comment: Speci men Type: BLOOD SPECIMENOrdering Facility: [facility] Address: [address] [place] [address] Performed By: #### 5 7021-8 ####[facility] [place] LABCL[facility] [id number] [facility] [place] [address] [place] Hematocrit (Bld) [Volume fraction] 43.0 % Normal 36.0-46.0 [facility] Comment on above: Order Comment: Speci men Type: BLOOD SPECIMENOrdering Facility: [facility] Address: [address] [place] [address] Performed By: #### 5 7021-8 ####[facility] [place] LABCLIA [id number] [facility] [place] [address] [place] Hemoglobin (Bld) [Mass/Vol] 13.7 g/dL Normal 11.5-15.5 [facility] Comment on above: Order Comment: Speci men Type: BLOOD SPECIMENOrdering Facility: [facility] Address: [address] [place] [address] Performed By: #### 5 7021-8 ####[facility] [place] LABCLIA [id number] [facility] [place] [address] [place] Immature granulocytes (Bld) [#/Vol] 10*3/uL Normal <0.10 [facility] Comment on above: Order Comment: Speci men Type: BLOOD SPECIMENOrdering Facility: [facility] Address: [address] [place] [address] Performed By: #### 5 7021-8 ####[facility] [place] LABCLIA [id number] [place] [address] [place] Immature granulocytes/100 WBC (Bld) 0.1 % Normal [facility] Comment on above: Order Comment: Speci men Type: BLOOD SPECIMENOrdering Facility: [facility] Address: [address] [place] [address] Performed By: #### 5 7021-8 ####[facility] [place] LABCLIA [id number] [place] [address] [place] Lymphocytes (Bld) [#/Vol] 1.29 10*3/uL Normal 1.00-4.00 [facility] Comment on above: Order Comment: Speci men Type: BLOOD SPECIMENOrdering Facility: [facility] Address: [address] [place] [address] Performed By: #### 5 7021-8 ####[facility] [place] [facility]CL[facility] [id number] [place], [place] [address] [place] [address] Lymphocytes/100 WBC (Bld) 16.9 % Normal [facility] Comment on above: Order Comment: Speci men Type: BLOOD SPECIMENOrdering Facility: [facility] Address: [address] [place] [address] Performed By: #### 5 7021-8 ####[facility] [place] [facility] [id number] [place], [place] [address] [place] [address] MCH (RBC) [Entitic mass] 29.7 pg Normal 26.0-34.0 [facility] Comment on above: Order Comment: Speci men Type: BLOOD SPECIMENOrdering Facility: [facility] Address: [address] [place] [address] Performed By: #### 5 7021-8 ####[facility] [place] LABCLIA [id number] [place] [address] [facility] MCHC (RBC) [Mass/Vol] 31.9 g/dL Normal 30.5-36.0 [facility] Comment on above: Order Comment: Speci men Type: BLOOD SPECIMENOrdering Facility: [facility] Address: [address] [place] [address] Performed By: #### 5 7021-8 ####[facility] [place] [facility]CLIA [id number] [place] [address] [facility] OF [place] MCV (RBC) [Entitic vol] 93.1 fL Normal 80.0-100.0 [facility] Comment on above: Order Comment: Speci men Type: BLOOD SPECIMENOrdering Facility: [facility] Address: [address] [place] [address] Performed By: #### 5 7021-8 ####[facility] [place] LABCLIA [id number] [place] [address] [place] Monocytes (Bld) [#/Vol] 0.84 10*3/uL Normal <0.87 [facility] Comment on above: Order Comment: Speci men Type: BLOOD SPECIMENOrdering Facility: [facility] Address: [address] [place] [address] Performed By: #### 5 7021-8 ####[facility] [place] LABCLIA [id number] [facility] [place] [place] [address] [facility] OF [place] Monocytes/100 WBC (Bld) 11.0 % Normal A [facility] Comment on above: Order Comment: Speci men Type: BLOOD SPECIMENOrdering Facility: [facility] Address: [address] [place] [address] Performed By: #### 5 7021-8 ####[facility] [place] LABCLIA [id number] [place] [address] [place] Neutrophils (Bld) [#/Vol] 5.18 10*3/uL Normal 1.45-7.50 [facility] Comment on above: Order Comment: Speci men Type: BLOOD SPECIMENOrdering Facility: [facility] Address: [address] [place] [address] Performed By: #### 5 7021-8 ####[facility] [place] LABCLIA [id number] [place] [address] [place] Neutrophils/100 WBC (Bld) 67.7 % Normal [facility] Comment on above: Order Comment: Speci men Type: BLOOD SPECIMENOrdering Facility: [facility] Address: [address] [place] [address] Performed By: #### 5 7021-8 ####[facility] [place] LABCLIA [id number] [place] [address] [place] Nucleated RBC (Bld) [#/Vol] Normal [facility] Comment on above: Order Comment: Speci men Type: BLOOD SPECIMENOrdering Facility: [facility] Address: [address] [place] [address] Performed By: #### 5 7021-8 ####[facility] [place] LABCLIA [id number] [facility] [place] [address] [place] Nucleated RBC/100 WBC (Bld) [Ratio] Normal [facility] Comment on above: Order Comment: Speci men Type: BLOOD SPECIMENOrdering Facility: [facility] Address: [address] [place] [address] Performed By: #### 5 7021-8 ####[facility] [place] [facility]CL[facility] [id number] [facility] [place] [address] [place] Platelet mean volume (Bld) [Entitic vol] 10.8 fL Normal 9.0-12.7 [facility] Comment on above: Order Comment: Speci men Type: BLOOD SPECIMENOrdering Facility: [facility] Address: [address] [place] [address] Performed By: #### 5 7021-8 ####[facility] [place] [facility] [id number] [place] [address] [place] Platelets (Bld) [#/Vol] 223 10*3/uL Normal 150-400 [facility] Comment on above: Order Comment: Speci men Type: BLOOD SPECIMENOrdering Facility: [facility] Address: [address] [place] [address] Performed By: #### 5 7021-8 ####[facility] [place] LABCLIA [id number] [place] [address] [place] RBC (Bld) [#/Vol] 4.62 10*6/uL Normal 3.90-5.20 [facility] Comment on above: Order Comment: Speci men Type: BLOOD SPECIMENOrdering Facility: [facility] Address: [address] [place] [address] Performed By: #### 5 7021-8 ####[facility] [place] [facility] [id number] [place] [address] [facility] WBC (Bld) [#/Vol] 7.65 10*3/uL Normal 3.70-11.00 [facility] Comment on above: Order Comment: Speci men Type: BLOOD SPECIMENOrdering Facility: [facility] Address: [address] [place] [id number] Performed By: #### 5 7021-8 ####[facility] [place] LABCLIA [id number] [place] [address] [facility] CNTHERAPYon 11-25-2023 CNTHERAPY OT/PT/Speech Visit (LDPT) MICHAEL MEIER ([id number]) 1940 F Date Time Provider Department 11/25/23 8:30 AM SARAH MERCHANT LDPT Date Time Provider Department Center 11/25/2023 8:30 AM [id number], CARLA LDPT [facility] Reason for Visit: Physical Therapy [503] [...] SULFA (SULFONAMIDE ANTIBIOTICS) 03/17/2001 Comments: hives VICODIN (HYDROCODONE-ACETAMINO PHE*01/08/2005 5 - Intolerance Comments: dizzy,nausea,vomiting, headache ZITHROMAX (AZITHROMYCIN) 05/20/2017 5 - Intolerance Date [...] Lori mosqueda Type: BLOOD SPECIMEN Order[facility] Facility: [facility] Address: [address] [place], [place] [address] Performed By: #### 2 4323-8, 44898-2, 6-3 #### [facility] [place] [facility] CLIA [id number] [address] [place], [place] [id number] [place] [address] STATES OF [facility] ALP [Catalytic activity/Vol] 97 U/L Normal 34-123 [facility] Comment on above: Order Comment: Lori mosqueda Type: BLOOD SPECIMEN [facility] Facility: [facility] Address: [address] [place] [address] Performed By: #### 2 4323-8, 70688-6, 6-3 #### [facility] [place] [place] [facility] CLIA [id number] [address] [place] [address] [facility] ALT With P-5'-P [Catalytic activity/Vol] 23 U/L Normal 7-38 [facility] Comment on above: Order Comment: Lori men Type: BLOOD SPECIMEN [facility]: [facility] Address: [address] [place] [address] Performed By: #### 2 4323-8, 20456-4, 6-3 #### [facility] [place] [facility] CLIA [id number] [address] [place] [address] [facility] Anion gap [Moles/Vol] 14 mmol/L Normal 8-15 [facility] Comment on above: Order Comment: Lori men Type: BLOOD SPECIMEN [facility] Facility: [facility] Address: [address] [place] [address] Performed By: #### 2 4323-8, 46104-2, 3016-3 #### [facility] [place] [facility] CLIA [id number] [address] [place] [address] [place] AST With P-5'-P [Catalytic activity/Vol] 25 U/L Normal 13-35 [facility] Comment on above: Order Comment: Speci men Type: BLOOD SPECIMEN [facility]: [facility] Address: [address] [place] [address] Performed By: #### 2 4323-8, 06368-6, 3015-3 #### [facility] [place] [facility] CLIA [id number] [address] [place] [address] [place] Bilirubin [Mass/Vol] 0.7 mg/dL Normal 0.2-1.3 [facility] Comment on above: Order Comment: Speci men Type: BLOOD SPECIMEN [facility]: [facility] Address: [address] [place] [address] Performed By: #### 2 4323-8, 79848-3, 6-3 #### [facility] [place] [facility] CLIA [id number] [address] [place] [address] [place] Calcium [Mass/Vol] 9.3 mg/dL Normal 8.5-10.2 [facility] Comment on above: Order Comment: Speci men Type: BLOOD SPECIMEN [facility]: [facility] Address: [address] [place] [address] Performed By: #### 2 4323-8, 72075-9, 6-3 #### [facility] [place] [facility] CLIA [id number] [address] [place] [address] [place] Chloride [Moles/Vol] 102 mmol/L Normal 98-107 [facility] Comment on above: Order Comment: Speci men Type: BLOOD SPECIMEN Order[facility] Facility: [facility] Address: [address] [place], [place] [address] Performed By: #### 2 4323-8, 71705-3, 3016-3 #### [facility] [place] [facility] CLIA [id number] [address] [place] [address] [place] CO2 [Moles/Vol] 26 mmol/L Normal 22-30 [facility] Comment on above: Order Comment: Speci men Type: BLOOD SPECIMEN [facility]: [facility] Address: [address] [place] [address] Performed By: #### 2 4323-8, 97086-3, 3 #### [facility] [place] [place] [facility] CLIA [id number] [address] [place] [address] [place] [facility] Creatinine [Mass/Vol] 0.64 mg/dL Normal 0.58-0.96 [facility] Comment on above: Order Comment: Speci men Type: BLOOD SPECIMEN [facility]: [facility] Address: [address] [place] [address] Performed By: #### 2 4323-8, 32955-9, 3015-07 #### [facility] [place] [facility] CLIA [id number] [address] [place] [address] [place] [facility] Creatinine and Glomerular filtration rate.predicted panel (S/P/Bld) 88 mL/min/1.73m??? Normal >=60 [facility] Comment on above: Order Comment: Speci men Type: BLOOD SPECIMEN [facility] Facility: [facility] Address: [address] [place] [address] Result Comment: Bina mated Glomerular Filtration Rate [...] actual GFR. Performed By: #### 2 4323-8, 54539-9, 3 #### [facility] [place] [facility] CLIA [id number] [address] [place] [address] [place] Glucose [Mass/Vol] 99 mg/dL Normal 74-99 [facility] Comment on above: Order Comment: Lori mosqueda Type: BLOOD SPECIMEN [facility] Facility: [facility] Address: [address] [place] [address] Result Comment: The [place] Diabetes Association (ADA) provides guidance for cutoff [...] Standards of Medical Care in Diabetes 2016, [place] Diabetes Association. Diabetes Care. 2016.39(Suppl 1). Performed By: #### 2 4323-8, 71681-1, 3016-3 #### [facility] [place] [facility] CLIA [id number] [address] [place] [address] [place] Potassium [Moles/Vol] 3.8 mmol/L Normal 3.7-5.1 [facility] Comment on above: Order Comment: Lori mosqueda Type: BLOOD SPECIMEN [facility] Facility: [facility] Address: [address] [place] [address] Performed By: #### 2 4323-8, 94412-2, 6-3 #### [facility] [place] [facility] CLIA [id number] [address] [place] [address] [place] Protein [Mass/Vol] 6.8 g/dL Normal 6.3-8.0 [facility] Comment on above: Order Comment: Lori mosqueda Type: BLOOD SPECIMEN Order[facility] Facility: [facility] Address: [address] [place] [address] Performed By: #### 2 4323-8, 78425-2, 3016-3 #### [facility] [place] [facility] CLIA [id number] [address] [place] [address] [place] Sodium [Moles/Vol] 142 mmol/L Normal 136-144 [facility] Comment on above: Order Comment: Lori mosqueda Type: BLOOD SPECIMEN Ordering Facility: [facility] Address: [address] [place] [address] Performed By: #### 2 4323-8, 41095-2, 3016-3 #### [facility] [place] [place] [facility] CLIA [id number] [address] [place] [address] [place] Urea nitrogen [Mass/Vol] 10 mg/dL Normal 7-21 [facility] Comment on above: Order Comment: Lori men Type: BLOOD SPECIMEN Ordering Facility: [facility] Address: [address] [place] [address] Performed By: #### 2 4323-8, 31435-7, 6-3 #### [facility] [place] [place] [facility] CLIA [id number] [address] [place] [address] [place] HbA1c (Bld)on 11-25-2023 Average glucose Estimated from glycated hemoglobin (Bld) [Mass/Vol] 97 mg/dL Normal [facility] Comment on above: Order Comment: Lori jaylin Type: BLOOD SPECIMENOrdering Facility: [facility] Address: [address] [place] [address] Result Comment: eAG: (Estimated average glucose) is a calculated value from HgbA1c and is ocean import representative of the average blood glucose level in the last 2-3 month period. Performed By: #### 5 5454-3 ####[facility] LABCLIA [id number] [facility] [id number] [address] [place] HbA1c (Bld) [Mass fraction] 5.0 % Normal 4.3-5.6 [facility] Comment on above: Order Comment: [facility] Type: BLOOD SPECIMENOrdering Facility: [facility] Address: [address] [place] [address] Result Comment: [place] Diabetes Association guidelines indicate that patients with HgbA1c in the range 5.7-6.4% are at increased risk for development of diabetes, and intervention by lifestyle modification may be beneficial. HgbA1c greater or equal to 6.5% is considered diagnostic of diabetes. Performed By: #### 5 5454-3 ####[facility] LABCLIA [id number] [facility] [id number] OF [place] Lipid 1996 panelon 4 Cholesterol [Mass/Vol] 159 mg/dL Normal <200 [facility] Comment on above: Order Comment: Speci men Type: BLOOD SPECIMEN Ordering Facility: [facility] Address: [address] [place] [address] Result Comment: <200 mg/dL, Desirable 200-239 mg/dL, Borderline high >239 mg/dL, High Performed By: #### 2 4323-8, 94343-7, 3015-3 #### [facility] CLIA [id number] [address], [place] [id number] [place] [address] OF [facility] Cholesterol in HDL [Mass/Vol] 74 mg/dL Normal >39 [facility] Comment on above: Order Comment: [facility] Type: BLOOD SPECIMEN Ordering Facility: [facility] Address: [address] [place] [address] Result Comment: 40-5 9 mg/dL, Acceptable >59 mg/dL, High: Negative risk factor for coronary heart disease <40 mg/dL, Low: Positive risk factor for coronary heart disease Performed By: #### 2 4323-8, 13759-4, 3015-3 #### [facility] CLIA [id number] [address] [place] [address] [facility] Cholesterol in LDL [Mass/Vol] 54 mg/dL Normal <100 [facility] Comment on above: Order Comment: Speci men Type: BLOOD SPECIMEN Ordering Facility: [facility] Address: [address] [place] [address] Result Comment: <100 mg/dL, Optimal 100-129 mg/dL, Near optimal/above optimal 130-159 mg/dL, Borderline high 160-189 mg/dL, High >189 mg/dL, Very high Secondary prevention optimal LDL Cholesterol levels are recommended to be < 70 mg/dL Performed By: #### 2 4323-8, 51176-0, 6-3 #### [facility] CLIA [id number] [address] [place] [address] [facility] Cholesterol in LDL/Cholesterol in HDL [Mass ratio] 0.73 {ratio} Normal <2.54 [facility] Comment on above: Order Comment: Lori mosqueda Type: BLOOD SPECIMEN Ordering Facility: [facility] Address: [address] [place] [address] Result Comment: Refe rence: 1. National Cholesterol Education Program ATP III Guideline At-A-Glance Quick Desk Reference: National Heart, Lung, and Blood Edwards. National Institutes of Health. 2001: NIH Publication No. 01-3305. 2. An International Atherosclerosis Society position paper: global recommendations for the management of dyslipidemia: executive summary, Atherosclerosis. 2014: 232(2):410-413. Performed By: #### 2 4323-8, 46671-7, 3015-3 #### [facility] CLIA [id number] [address] [place] [address] [facility] Cholesterol in VLDL [Mass/Vol] 31 mg/dL High <30 [facility] Comment on above: Order Comment: Lori mosqueda Type: BLOOD SPECIMEN Ordering Facility: [facility] Address: [address] [place] [address] Performed By: #### 2 4323-8, 72017-4, 3015-3 #### [facility] CLIA [id number] [address] [place] [address] [facility] Cholesterol non HDL [Mass/Vol] 85 mg/dL Normal <130 [facility] Comment on above: Order Comment: Lori mosqueda Type: BLOOD SPECIMEN Ordering Facility: [facility] Address: [address] [place] [address] Result Comment: <130 mg/dL, Optimal 130-159 mg/dL, Near optimal/above optimal 160-189 mg/dL, Borderline high 190-219 mg/dL, High >219 mg/dL, Very high Secondary prevention optimal non HDL Cholesterol levels are recommended to be <100 mg/dL Performed By: #### 2 4323-8, 58235-9, 3016-3 #### [facility] CLIA [id number] [address] [place] [address] [facility] Cholesterol.total/Kathy sterol in HDL [Mass ratio] 2.15 {ratio} Normal <5.10 [facility] Comment on above: Order Comment: Speci men Type: BLOOD SPECIMEN Ordering Facility: [facility] Address: [address] [place] [address] Performed By: #### 2 4323-8, 71837-5, 3016-3 #### [facility] CLIA [id number] [address] FASTING TIME 12 hrs Normal [facility] Comment on above: Order Comment: Speci men Type: BLOOD SPECIMEN Ordering Facility: [facility] Address: [address] [place] [address] Performed By: #### 2 4323-8, 13924-7, 3016-3 #### [facility] CLIA [id number] [address], [place] [id number] [place] [address] Triglyceride [Mass/Vol] 153 mg/dL High <[address] [facility] Comment on above: Order Comment: Speci men Type: BLOOD SPECIMEN Ordering Facility: [facility] Address: [address] [place] [address] Result Comment: <150 mg/dL, Normal 150-199 mg/dL, Borderline high 200-499 mg/dL, High >499 mg/dL, Very high Performed By: #### 2 4323-8, 53999-3, 3016-3 #### [facility] CLIA [id number] [address] OF [place] T3 SerPl-mCncon 11-25-2023 T3 [Mass/Vol] 99 ng/dL Normal 79-165 [facility] Comment on above: Order Comment: Speci men Type: BLOOD SPECIMENOrdering Facility: [facility] Address: [address] [place] [address] Performed By: #### 3 024-7, 3053-6 ####[facility]ORYCLIA [id number] [address] OF [place] T4 Free SerPl-mCncon 11-24-2 024 Free T4 [Mass/Vol] 1.6 ng/dL Normal 0.9-1.7 [facility] Comment on above: Order Comment: Lori mosqueda Type: BLOOD SPECIMENOrdering Facility: [facility] Address: [address] [place] [address] Performed By: #### 3 024-7, 3053-6 ####[facility]ORATORYCLIA [id number] [address] TSH SerPl-aCncon 11-25-2023 TSH Qn 4.510 m[IU]/L High 0.270-4.200 [facility] Comment on above: Order Comment: Lori mosqueda Type: BLOOD SPECIMENOrdering Facility: [facility] Address: [address] [place] [address] Performed By: #### 2 4323-8, 24029-3, 3016-3 ####[facility] [id number] [address] CNTHERAPYon 11-23-2023 CNTHERAPY OT/PT/Speech Visit (LDPT) MICHAEL MEIER ([id number]) 1940 F Date Time Provider Department 11/23/23 2:15 PM SARAH MERCHANT LDPT Date Time Provider Department Center 11/23/2023 2:15 PM [id number], CARLA LDPT [facility] Reason for Visit: Physical Therapy [503] [...] SULFA (SULFONAMIDE ANTIBIOTICS) 03/17/2001 Comments: hivmyranda VICODIN (HYDROCODONE-ACETAMINO PHE*01/08/2005 5 - Intolerance Comments: dizzy,nausea,vomiting, headache ZITHROMAX (AZITHROMYCIN) 05/20/2017 5 - Intolerance Date [...] once daily. Normal [facility] [id number] 11-15-2023 [id number] HNO ID: [id number] Author: SARAH MERCHANT PT Service: ? Author Type: Physical Therapist Type: [id number] Filed: 11/15/2023 18:46 Note Text: [facility] Physical Therapy Plan of Care Certification Patient Name: Michael Meier : 1940 [facility] #: [id number] Date: 11/15/2023 To: Geeta Cadet,* From Therapist: [...] of Care: created on 11/15/23 through 01/14/24 [place] in home exercise program. Patient will demonstrate [...] Planned: 15 Planned Treatment Interventions: Therapeutic exercise (75890), Neuromuscular re-education (03521), Therapeutic activities (44151), Self-fci management (23804), Gait Training (40137), Patient/Family/Caregiv er Education, General Conditioning PLAN FOR NEXT VISIT: [...] reviewed the treatment plan for Michael Meier, CC# [id number] for the period of 11/15/23 -- 01/14/24, established on 11/15/2023. Signature certifies the need for therapy services. Normal [facility] CNTHERAPYon 11-15-2023 CNTHERAPY OT/PT/Speech Visit (LDPT) HARDEEPMICHAEL Deras ([id number]) 1940 F Date Time Provider Department 11/15/23 4:30 PM SARAH MERCHANT Date Time Provider Department [place] 11/15/2023 4:30 PM [id number] MERCHANT [facility] Reason for Visit: PT Eval [747] [...] SULFA (SULFONAMIDE ANTIBIOTICS) 03/17/2001 Comments: imani VICODIN (HYDROCODONE-ACETAMINO PHE*01/08/2005 5 - Intolerance Comments: dizzy,nausea,vomiting, headache ZITHROMAX (AZITHROMYCIN) 05/20/2017 5 - Intolerance Date [...] [facility] XR CHEST 2V FRONTAL/LATon [facility] EGD DIAGNOSTICon 01-08-2022 [facility] GLUCOSE, BLOOD (POC)on 10-20 Glucose [Mass/Vol] 116 mg/dL Abnormal 74 - 99 mg/dL [facility] UA DIP, URINE (POC)on 2021 BILIRUBIN UA (POCT) Negative Negative [facility] CLARITY UA (POCT) Clear [facility] COLOR UA (POCT) [place] [facility] GLUCOSE UA (POCT) 100 mg/dL Abnormal Negative mg/dL [facility] HEMOGLOBIN/BLOOD UA (POCT) Large Abnormal Negative [facility] KETONE UA (POCT) Trace Negative mg/dL [facility] LEUKOCYTES UA (POCT) Large Abnormal Negative [facility] NITRITE UA (POCT) Positive Abnormal Negative [facility] PH UA (POCT) 5.0 4.5 - 8.0 [facility] Protein Ql (U) 100 mg/dL Abnormal Negative mg/dL [facility] SPECIFIC GRAVITY UA (POCT) <=1.005 Abnormal 1.005 - 1.030 [facility] UROBILINOGEN UA (POCT) 4.0 E.U./dL Abnormal Eli l E.U./dL [facility] Basophil percentageon 2021 Chloride [Moles/Vol] 100 mmol/L 98-107 [facility] Work Phone: Glucose [Mass/Vol] 92 mg/dL 74-106 [facility] Work Phone: Potassium [Moles/Vol] 3.8 mmol/L 3.5-5.1 [facility] Work Phone: Comment on above: Slight Hemolysis, Re sult may be falsely increased. Sodium [Moles/Vol] 135 mmol/L 136-145 [facility] Work Phone: Laboratory - Chemistry and C hemistry - challengeon 09-10-2021 CO2 [Moles/Vol] 30.0 mmol/L 21.0-32.0 [facility] Work Phone: Urea nitrogen/Creatinine [Mass ratio] 19.7 mg/mg 10-20 [facility] Work Phone: No Panel Informationon 09-10 Estimated GFR (MDRD) Amer 82 mL/min >60 [facility] Work Phone: Comment on above: GFR Calc Estimated GFR (MDRD) Non-Af Amer 67 mL/min >60 [facility] Work Phone: Comment on above: Non- GFR Calc Serum or plasma calcium julee urement (mass/volume)on 09-10-2021 Calcium [Mass/Vol] 8.8 mg/dL 8.5-10.1 [facility] Work Phone: Serum or plasma creatinine m easurement (mass/volume)on 09-10-2021 Creatinine [Mass/Vol] 0.86 mg/dL 0.55-1.02 [facility] Work Phone: Comment on above: The validity of the calculated GFR & GFRAA in patients over 70 years has not been determined. Clinical correlation is essential. Serum or plasma urea nitroge n measurement (mass/volume)on 09-10-2021 Urea nitrogen [Mass/Vol] 17 mg/dL 7-18 [facility] Work Phone: Thin prep Papanicolaou smear with manual screeningon 09-10-2021 Thin prep Papanicolaou smear with manual screening 5 5-15 [facility] Work Phone: Basophil percentageon 2021 Basophil percentage 0 SEEN /hpf [facility] Work Phone: Chloride [Moles/Vol] 103 mmol/L 98-107 [facility] Work Phone: Glucose [Mass/Vol] 88 mg/dL 74-106 [facility] Work Phone: Potassium [Moles/Vol] 3.7 mmol/L 3.5-5.1 [facility] Work Phone: Sodium [Moles/Vol] 138 mmol/L 136-145 [facility] Work Phone: WBC (Bld) [#/Vol] 7.3 10*3/uL 4.4-11.0 [facility] Work Phone: Bilirubin Test strip Ql (U)o n 06-02-2021 Bilirubin Ql (U) Negative Negative [facility] Work Phone: Blood erythrocytes count (nu mber/volume)on 06-02-2021 RBC (Bld) [#/Vol] 4.57 10*6/uL 4.2-5.4 [facility] Work Phone: Blood hemoglobin measurement (mass/volume)on 06-02-2021 Hemoglobin (Bld) [Mass/Vol] 13.5 g/dL 12.0-15.0 [facility] Work Phone: Blood platelet mean volumeon 06-02-2021 Platelet mean volume (Bld) [Entitic vol] 10.3 fL 6.2-12.0 [facility] Work Phone: Determination of erythrocyte mean corpuscular volume (MCV)on 06-02-2021 MCV (RBC) [Entitic vol] 88.8 fL 81-99 [facility] Work Phone: Hematocrit Auto (Bld) [Volum e fraction]on 06-02-2021 Hematocrit (Bld) [Volume fraction] 40.6 % 37-47 [facility] Work Phone: INR in Blood by Coagulation assayon 06-02-2021 INR Coag (Bld) [Relative time] 1.1 {INR} [facility] Work Phone: Ketones Test strip Ql (U)on 06-02-2021 Ketones Ql (U) Negative Negative [facility] Work Phone: Laboratory - Chemistry and C hemistry - challengeon 06-02-2021 CO2 [Moles/Vol] 30.0 mmol/L 21.0-32.0 [facility] Work Phone: Urea nitrogen/Creatinine [Mass ratio] 18.6 mg/mg 10-20 [facility] Work Phone: Laboratory - Coagulationon 0 06-02-2021 PT Coag (PPP) [Time] 13.1 s 11.7-14.9 [facility] Work Phone: Laboratory - Hematology and Cell countson 06-02-2021 Erythrocyte distribution width (RBC) [Entitic vol] 45.3 fL 35.1-43.9 [facility] Work Phone: Erythrocyte distribution width (RBC) [Ratio] 13.9 % 11.6-14.6 [facility] Work Phone: MCH (RBC) [Entitic mass] 29.5 pg 27.0-32.0 [facility] Work Phone: MCHC Auto (RBC) [Mass/Vol]on 06-02-2021 MCHC (RBC) [Mass/Vol] 33.3 g/dL 32-36 [facility] Work Phone: Mucus LM Ql (Urine sed)on Mucus Ql (Urine sed) 0 SEEN /hpf [facility] Work Phone: Nitrite Test strip Ql (U)on 06-02-2021 Nitrite Ql (U) Negative Negative [facility] Work Phone: No Panel Informationon 06-02 Estimated GFR (MDRD) Amer 104 mL/min >60 [facility] Work Phone: Comment on above: GFR Calc Estimated GFR (MDRD) Non-Af Amer 86 mL/min >60 [facility] Work Phone: Comment on above: Non- GFR Calc Thyroid Stimulating Hormone (TSH) 1.91 uIU/mL 0.358-3.74 [facility] Work Phone: Platelets bldon 06-02-2021 Platelets (Bld) [#/Vol] 240 10*3/uL 150-450 [facility] Work Phone: Protein Test strip Ql (U)on 06-02-2021 Protein Ql (U) 15 mg/dl Negative [facility] Work Phone: Serum or plasma calcium julee urement (mass/volume)on 06-02-2021 Calcium [Mass/Vol] 8.6 mg/dL 8.5-10.1 [facility] Work Phone: Serum or plasma creatinine m easurement (mass/volume)on 06-02-2021 Creatinine [Mass/Vol] 0.70 mg/dL 0.55-1.02 [facility] Work Phone: Comment on above: The validity of the calculated GFR & GFRAA in patients over 70 years has not been determined. Clinical correlation is essential. Serum or plasma urea nitroge n measurement (mass/volume)on 06-02-2021 Urea nitrogen [Mass/Vol] 13 mg/dL 7-18 [facility] Work Phone: Squamous epithelial cells de tection in urine sediment by light microscopyon 06-02-2021 Epithelial cells.squamous LM Ql (Urine sed) 0 SEEN /hpf [facility] Work Phone: Thin prep Papanicolaou smear with manual screeningon 06-02-2021 Thin prep Papanicolaou smear with manual screening 5 5-15 [facility] Work Phone: Urine blood detectionon - RBC Ql (U) Negative Negative [facility] Work Phone: RBC Ql (U) 0 SEEN /hpf [facility] Work Phone: Urine clarityon 06-02-2021 Clarity (U) Sl. Cloudy Clear [facility] Work Phone: Urine color determinationon 06-02-2021 Color (U) Yellow Yellow [facility] Work Phone: Urine glucose detectionon Glucose Ql (U) Normal mg/dl Normal [facility] Work Phone: Urine leukocyte esterase det ection by dipstickon 06-02-2021 Leukocyte esterase Test strip Ql (U) 25 /ul Negative [facility] Work Phone: Urine pHon 06-02-2021 pH (U) 6.5 [pH] [facility] Work Phone: Urine sediment bacteria coun t by microscopy (number/high power field)on 06-02-2021 Bacteria LM.HPF (Urine sed) [#/Area] 1 /[HPF] None Seen [facility] Work Phone: Urine specific gravity measu rementon 06-02-2021 Specific gravity (U) [Rel density] 1.015 [facility] Work Phone: Urobilinogen Auto test strip Ql (U)on 06-02-2021 Urobilinogen Ql (U) Normal mg/dl Normal [facility] Work Phone: BASIC METABOLIC PANELon 08- Anion gap [Moles/Vol] 8 mmol/L Low 10 - 20 [facility] Comment on above: Performed By: #### B MP #### [address] [address] Calcium [Mass/Vol] 8.4 mg/dL Low 8.6 - 10.3 [facility] Comment on above: Performed By: #### B MP #### [address] [address] Chloride [Moles/Vol] 104 mmol/L Normal 98 - 107 [facility] Comment on above: Performed By: #### B MP #### [address] [address] Creatinine [Mass/Vol] 0.50 mg/dL Normal 0.50 - 1.05 [facility] Comment on above: Performed By: #### B MP #### [address] [address] GFR- AM. >60 Normal >60 [facility] Comment on above: Result Comment: CALC ULATIONS OF ESTIMATED GFR ARE PERFORMED USING THE MDRD STUDY EQUATION FOR THE IDMS-TRACEABLE CREATININE METHODS. CLIN CHEM 2007;53:766-72 Performed By: #### B MP #### [address] [address] GFR-NON AM. >60 Normal >60 [facility] Comment on above: Performed By: #### B MP #### [address] [address] Glucose [Mass/Vol] 90 mg/dL Normal 74 - 99 [facility] Comment on above: Performed By: #### B MP #### [address] [address] HCO3 (Bld) [Moles/Vol] 31 mmol/L Normal 21 - 32 [facility] Comment on above: Performed By: #### B MP #### [address] [address] Potassium [Moles/Vol] 3.8 mmol/L Normal 3.5 - 5.3 [facility] Comment on above: Performed By: #### B MP #### [address] [address] Sodium [Moles/Vol] 139 mmol/L Normal 136 - 145 [facility] Comment on above: Performed By: #### B MP #### [address] [address] Urea nitrogen [Mass/Vol] 10 mg/dL Normal 6 - 23 [facility] Comment on above: Performed By: #### B MP #### [address] [address] BNPon 12-21-2020 Natriuretic peptide B (Bld) [Mass/Vol] 212 pg/mL High 0 - 99 [facility] Comment on above: Result Comment: . <1 00 pg/mL - Heart failure unlikely 100-299 pg/mL - Intermediate probability of acute heart . failure exacerbation. Correlate with clinical . context and patient history. >=300 pg/mL - Heart Failure likely. Correlate with clinical . context and patient history. BNP testing is performed using different testing methodology at [facility] than at other [facility]. Direct result comparisons should only be made within the same method. Performed By: #### B NP2 #### [address] [address] CBC AND DIFFERENTIALon 12-21 Basophils (Bld) [#/Vol] 0.00 10*3/uL Normal 0.00 - 0.1 0 [facility] Comment on above: Performed By: #### C BCDF #### [address] [address] Basophils/100 WBC (Bld) 0.9 % Normal 0.0 - 2.0 [facility] Comment on above: Performed By: #### C BCDF #### [address] [address] Eosinophils (Bld) [#/Vol] 0.10 10*3/uL Normal 0.00 - 0.40 [facility] Comment on above: Performed By: #### C BCDF #### [address] [address] Eosinophils/100 WBC (Bld) 2.5 % Normal 0.0 - 6.0 [facility] Comment on above: Performed By: #### C BCDF #### [address] [address] Erythrocyte distribution width (RBC) [Ratio] 15.3 % High 11.5 - 14.5 [facility] Comment on above: Performed By: #### C BCDF #### [address] [address] Hematocrit (Bld) [Volume fraction] 38.9 % Normal 36.0 - 46.0 [facility] Comment on above: Performed By: #### C BCDF #### [address] [address] Hemoglobin (Bld) [Mass/Vol] 12.8 g/dL Normal 12.0 - 16.0 [facility] Comment on above: Performed By: #### C BCDF #### [address] [address] Lymphocytes (Bld) [#/Vol] 0.70 10*3/uL Low 0.80 - 3.00 [facility] Comment on above: Performed By: #### C BCDF #### [address] [address] Lymphocytes/100 WBC (Bld) 13.3 % Normal 13.0 - 44.0 [facility] Comment on above: Performed By: #### C BCDF #### [address] [address] MCHC (RBC) [Mass/Vol] 33.0 g/dL Normal 32.0 - 36.0 [facility] Comment on above: Performed By: #### C BCDF #### [address] [address] MCV (RBC) [Entitic vol] 88 fL Normal 80 - 100 [facility] Comment on above: Performed By: #### C BCDF #### [address] [address] Monocytes (Bld) [#/Vol] 0.60 10*3/uL Normal 0.05 - 0.8 0 [facility] Comment on above: Performed By: #### C BCDF #### [address] [address] Monocytes/100 WBC (Bld) 11.5 % Normal 2.0 - 10.0 [facility] Comment on above: Performed By: #### C BCDF #### [address] [address] Neutrophils (Bld) [#/Vol] 3.80 10*3/uL Normal 1.60 - 5.50 [facility] Comment on above: Result Comment: Perc ent differential counts (%) should be interpreted in the context of the absolute cell counts (cells/L). Performed By: #### C BCDF #### [address] [address] Neutrophils/100 WBC (Bld) 71.8 % Normal 40.0 - 80.0 [facility] Comment on above: Performed By: #### C BCDF #### [address] [address] NUCLEATED RBC 0.2 /100 WBC Normal [facility] Comment on above: Performed By: #### C BCDF #### [address] [address] Platelets (Bld) [#/Vol] 160 10*3/uL Normal 150 - 450 [facility] Comment on above: Performed By: #### C BCDF #### [address] [address] RBC 4.44 x10E12/L Normal 4.00 - 5.20 [facility] Comment on above: Performed By: #### C BCDF #### [address] [address] WBC (Bld) [#/Vol] 5.3 10*3/uL Normal 4.4 - 11.3 [facility] Comment on above: Performed By: #### C BCDF #### [place] [address] CHEST 1 VIEWon 12-21-2020 CHEST 1 VIEW Patient Name: MICHAEL MEIER STUDY: CHEST 1 VIEW; 12/21/2020 3:49 pm INDICATION: SOB. COMPARISON: None. ACCESSION NUMBER(S): [id number] ORDERING CLINICIAN: BERNIE BARAJAS FINDINGS: CARDIOMEDIASTINAL SILHOUETTE: [...] Electronically signed by: TIFF FELDMAN MD Normal [facility] CORONAVIRUS 2019 BY PCRon SARS-CoV-2 (COVID-19) RNA DUSTIN+probe Ql (Unsp spec) Not detected Normal Not Detected [facility] Comment on above: Result Comment: . This test has received [facility] Emergency Use Authorization (EUA) and has been verified by [facility]. This test is only authorized for the duration of time that circumstances exist to justify the authorization of the emergency use of in vitro diagnostic tests for the detection of SARS-CoV-2 virus and/or diagnosis of COVID-19 infection under section 564(b)(1) of the Act, 21 U.S.C. 360bbb-3(b)(1), unless the authorization is terminated or revoked sooner. [facility] is certified under CLIA-88 as qualified to perform high complexity testing. Testing is performed in the [facility] laboratory located at [address] [place] [address]. SARS-CoV-2/Flu/RSV Multiplex Test: Fact sheet for providers: https://www.fda.gov/media/516657/download Fact sheet for patients: https://www.fda.gov/media/678462/download Performed By: #### C OV19 ####[address] [address] DATE OF SYMPTOM ONSET [YYYYMMDD]? [id number] Normal [facility] Comment on above: Performed By: #### C OV19 ####[address] [address] Lab Specimen Source Nasal, Nasopharyngeal Normal [facility] Comment on above: Performed By: #### C OV19 ####[address] [address] Covid 19 Resultson 1 SARS-CoV-2 (COVID-19) RNA [...] You may also be contacted by the [facility] to see if any of [...] or Naproxen (Aleve) can also be used. Glms-bdv-bkwzmef cough and cold medicines can be used according to the instructions on the package. Some xwvv-mdn-izqywpt medicines also contain acetaminophen. Make sure you [...] water are not available, use alcohol-based hand store stock help. Avoid touching your eyes, nose, and mouth [...] for 24 flakito (more content not included)... [facility] Narrative Note - Outpatiento n 12-21-2020 Narrative Note - Outpatient Narrative Note: Description Patient presented to the clinic today for evaluation of cough, wheezing/shortness of breath, chest discomfort, and known exposure to COVID-19. 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 In light of symptoms (and as we do not have nebulizer treatments available in this urgent care), advised would be best to seek care at the ER [facility]. Patient verbalized understanding and agreed; no questions/concerns verbalized. Declined offer for emergency transport. Electronic Signatures: Kat Gleason (GATHERING MACHINE SETTER-BRIDGE BUILDER) (Signed 21-Dec-2020 14:56) Authored: Narrative Note - OP Last Updated: 21-Dec-2020 14:56 by Kat Gleason (GATHERING MACHINE SETTER-BRIDGE BUILDER) [facility] Provider Note - ED v3on 12-02 Provider [...] Hg): 70 12-21-2020 15:03 PAST MEDICAL HISTORY ALLERGIES/INTOLERANCES : Allergy Allergen: penicillin Type: Drug Reaction: Unknown [...] Authorization (EUA) and has been verified by [facility]. This test is only authorized for the duration of time that circum Date of Symptom Onset [id number] Radiology Results: Impression: No acute cardiopulmonary process. [...] independently She is placed on a continuous operator with pulse oximetry monitoring. Old records and [...] computer instructions (more content not included)... [facility] Risk Screen - Adult Emergenc yon 12-21-2020 Risk Screen - Adult Emergency Preferred Language: Preferred Language: Preferred Language for Discussing Health Care (patient/designee)Engl leonard Advanced Directives: Advance Directive/DNRno Family Violence Adult: Abuse Screen: Are you or have you been threatened or abused physically, emotionally, or sexually by anyoneno Learning Assessment (Patient): Learning Assessment (Patient): Patient is Able to be Assessed for Learningyes Factors Influencing Readiness to Learnacuteness of illness Factors that Impact Ability to Learnnone Devices/Methods Used to Communicatenone Learning Preferencesaudio Cultural Considerationsnone Developmental Considerationsnone Bahai Considerationsnone Learning Assessment (Other Learner): Learning Assessment (Other Learner): Other learner availableno Pressure Injury/TB/Substance: Pressure Injury: Pressure Injury Present on Admissionno Do you have a coughyes... Has your cough lasted longer than 2 weeksno Smoking Statusnever smoker Alcohol Usedenies Drug Usedenies Drug 2 Usedenies Admission Risk Screen: Significant IndicatorsComplete CAGE: CAGE: Is this an injured patient at a Trauma Center ([facility]/[place]/[facility]/[place]): no Electronic Signatures: Kimberlee Albarran (GLYNN) (Signed 21-Dec-2020 15:07) Authored: Preferred Language, Advanced Directives, Family Violence Adult, Learning Assessment (Patient), Learning Assessment (Other Learner), Pressure Injury/TB/Substance, Pressure Injury, CAGE Last Updated: 21-Dec-2020 15:07 by Kimberlee Albarran (GLYNN) [facility] TROPONIN Ion 12-21-2020 Troponin I.cardiac [Mass/Vol] ng/mL Normal 0.00 - 0.03 [facility] Comment on above: Result Comment: LESS THAN [...] is performed using different testing methodology at [facility] than at other [facility] hospitals. Direct result comparisons should only be made within the same method. Performed By: #### T ROP2 #### [facility] [address] [place] [address] Triage - EDon 12-21-2020 Triage - ED [...] Accompanied By: self Language: Spoken Language Preferred: Slovenian Reading Language Preferred: Slovenian Manager Support Requested: no browning processor was requested MDRO: History of MDRO: no [...] History Last Updated: 21-Dec-2020 15:06 by Kimberlee Albarran) [facility] Office Visiton 10-22-2016 Documentation of current medications (procedure) Done Invalid Interpretation Code [employer] Work Phone: Fall risk assessment Yes Invalid Interpretation Code [employer] Work Phone: Clinical Lists Update: Prelo wellness program coordinator 10-21-2016 Left ventricular Ejection fraction 55 % Invalid Interpretation Code [employer] Work Phone: Office Visit: [facility] 04-15-20 Dietary management education, guidance, and counseling (procedure) yes Invalid Interpretation Code [employer] Work Phone: Protein mass conc Done [facility] Work Phone: [phone] Lab Report: Basic Metabolic Profile (BMP)on 05-28-2015 Anion gap 7 mmol/L Invalid Interpretation Code 5-15 [facility] Work Phone: [phone] Anion gap molar conc 7 mmol/L 5-[address] [facility] Work Phone: [phone] Calcium mass conc 8.8 mg/dL Invalid Interpretation Code 8.5-10.1 [facility] Work Phone: [phone] Chloride molar conc 106 mmol/L Invalid Interpretation Code 98-107 [facility] Work Phone: [phone] CO2 32.0 mmol/L Invalid Interpretation Code 21.0-32.0 [facility] Work Phone: [phone] CO2 ppres (BldV) 32.0 mmol/L 21.0-32.0 [facility] Work Phone: [phone] Creatinine mass conc 0.64 mg/dL Invalid Interpretation Code 0.55-1.20 [facility] [employer] Work Phone: [phone] eGFR (non-black) 117 mL/min/{1.73_m2} Invalid Interpretation Code >60 Blood cell [facility] Work Phone: [phone] EST GFR - AA 117 mL/min >60 [facility] [employer] Work Phone: [phone] GFR/1.73 sq M predicted among non-blacks MDRD vol rate/area (S/P/Bld) 97 mL/min/{1.73_m2} Invalid Interpretation Code >60 [facility] [employer] Work Phone: [phone] Glucose 84 mg/dL Invalid Interpretation Code 70-110 [facility] Work Phone: [phone] Glucose mass conc 84 mg/dL 70-110 [facility] Work Phone: [phone] Potassium molar conc 4.6 mmol/L Invalid Interpretation Code 3.5-5.1 [facility] Work Phone: [phone] Sodium molar conc 145 mmol/L Invalid Interpretation Code 136-145 [facility] Work Phone: [phone] Urea nitrogen mass conc 12 mg/dL Invalid Interpretation Code 7-18 [facility] Work Phone: [phone] Urea nitrogen/Creatinine mass ratio 18.8 RATIO Invalid Interpretation Code 10-20 [facility] [employer] Work Phone: [phone] Office Visiton 05-28-2015 General cardiovascular disease 10Y risk [#] Chata 11 % Invalid Interpretation Code [employer] Work Phone: [phone] Tobacco smoking status NHIS Never smoker [employer] Work Phone: [phone] Tobacco use CPHS Never smoker Invalid Interpretation Code [employer] Work Phone: [phone] Clinical Lists Update: Prelo wellness program coordinator 03-07-2015 Cholesterol in HDL mass conc 63 mg/dL Invalid Interpretation Code [employer] Work Phone: [phone] Cholesterol in LDL mass conc 138 mg/dL [facility] Phone: [phone] Cholesterol in LDL/Cholesterol in HDL mass ratio 2.19 Invalid Interpretation Code [employer] Work Phone: [phone] Cholesterol mass conc 227 mg/dL [facility] Work Phone: [phone] Cholesterol.total/Kathy sterol in HDL mass ratio 3.60 {ratio} Invalid Interpretation Code [employer] Work Phone: [phone] Lipoprotein.pre-beta mass conc 26 mg/dL Invalid Interpretation [facility] Phone: [phone] Thyrotropin Qn 2.560 u[iU]/mL Invalid Interpretation Code [employer] Work Phone: [phone] Triglyceride mass conc 128 mg/dL Invalid Interpretation Code [employer] Work Phone: [phone] Replaced Document: Hyun Crowell CG Observationson 11-22-2014 EKG QRS axis 8 deg [facility] Phone: [phone] electrocardiogram interpretation Sinus Rhythm -First degree A-V block Lisa = 246BORDERLINE RHYTHM Invalid Interpretation Code [employer] Work Phone: [phone] GE use only - for [employer] import when terms are not otherwise specified 452 ms Invalid Interpretation Code [facility] Phone: [phone] Interpretation Sinus Rhythm -First degree A-V block Lisa = 246BORDERLINE RHYTHM [facility] Work Phone: P Sharps -15 deg [facility] Work Phone: P wave axis, electrocardiogram -15 deg Invalid Interpretation Code [facility] Work Phone: PA Interval 246 ms [facility] Work Phone: PA interval, electrocardiogram 246 ms Invalid Interpretation Code [facility] Work Phone: Pulse (Heart Rate) 60 /min Invalid Interpretation Code [facility] Work Phone: QRS axis, electrocardiogram 8 deg Invalid Interpretation Code [facility] Work Phone: QRS Duration 106 ms [facility] Work Phone: QRS duration, electrocardiogram 106 ms Invalid Interpretation Code [facility] Work Phone: QT Interval new path ms [facility] [employer] Work Phone: QT interval, electrocardiogram new path ms Invalid Interpretation Code [facility] [employer] Work Phone: QTc Monahan 452 ms [facility] [employer] Work Phone: T Sharps 21 deg [facility] Work Phone: T wave axis, electrocardiogram 21 deg Invalid Interpretation Code [facility] [employer] Work Phone: Office Visiton 05-25-2014 cardiac risk group B Invalid Interpretation Code Blood cell [facility] [employer] Work Phone: Lab Report: CBCDon 4 Absolute Neutrophil count 5.4 X10 3/UL Normal 2.0-7.7 [facility] Work Phone: ANC 5.4 X10 3/UL Normal 2.0-7.7 [facility] [employer] Work Phone: Basophils/100 leukocytes 0.6 % Normal 0-1 [facility] Work Phone: Basophils/100 WBC (Bld) 0.6 % Normal 0-1 [facility] [employer] [employer] Work Phone: Eosinophils/100 leukocytes 1.4 % Normal 0-5 [facility] Work Phone: Eosinophils/100 WBC (Bld) 1.4 % Normal 0-5 [facility] Work Phone: Erythrocytes (RBC) 4.95 10*6/uL Normal 4.2-5.[address] [facility] Work Phone: [phone] Hematocrit (HCT) 41.6 % Normal 37-47 [facility] Work Phone: [phone] Hematocrit Volume Fraction (Bld) 41.6 % Normal 37-47 [facility] Work Phone: Hemoglobin mass conc (Bld) 14.4 g/dL Normal 12.0-15.0 [facility] Work Phone: [phone] Lymphocytes/100 leukocytes 23.0 % Normal 19-41 [facility] Work Phone: [phone] Lymphocytes/100 WBC (Bld) 23.0 % Normal 19-41 [facility] Work Phone: [phone] MCH 29.1 pg Normal 27.0-32.0 [facility] Work Phone: MCH Entitic mass (RBC) 29.1 pg Normal 27.0-32.0 [facility] Work Phone: MCHC 34.6 G/GL Normal 32-36 [facility] Work Phone: MCHC mass conc (RBC) 34.6 G/GL Normal 32-[address] [facility] Work Phone: MCV 84.0 fL Normal 81-99 [facility] Work Phone: MCV Entitic volume (RBC) 84.0 fL Normal 81-99 [facility] Work Phone: Monocytes/100 leukocytes 8.0 % Normal 0-10 [facility] Work Phone: Monocytes/100 WBC (Bld) 8.0 % Normal 0-10 [facility] Work Phone: Neutrophils/100 leukocytes 66.9 % Normal 47-70 [facility] Work Phone: Neutrophils/100 WBC (Bld) 66.9 % Normal 47-70 [facility] Work Phone: [phone] Platelet mean volume Entitic volume (Bld) 10.7 fL Normal 6.2-12.0 [facility] Work Phone: [phone] Platelets 209 10*3/mm3 Normal 150-450 [facility] Work Phone: [phone] Platelets #/vol (Bld) 209 10*3/mm3 Normal 150-450 [facility] Work Phone: [phone] PMV by [place] 10.7 fL Normal 6.2-12.0 [facility] Work Phone: [phone] RBC #/vol (Bld) 4.95 10*6/uL Normal 4.2-5.4 [facility] Work Phone: [phone] WBC #/vol (Bld) 8.1 10*3/uL Normal 4.4-11.0 [facility] Work Phone: [phone] WBC (Leukocytes) 8.1 10*3/uL Normal 4.4-11.0 [facility] Work Phone: [phone]) Lab Report: MGon 07-19-2013 Magnesium mass conc 1.9 mg/dL Normal 1.8-2.4 [facility] Work Phone: [phone] Lab Report: T4on 05-18-2012 T4 mass conc 11.9 ug/dL Normal 4.8-13.9 [facility] Work Phone: [phone] Lab Report: PTon 05-06-2011 INR Coag RelTime (PPP) 1.0 {INR} Normal [facility] Work Phone: [phone] INR in blood by coagulation 1.0 {INR} Normal [facility] Work Phone: [phone] prothrombin time, actual/normal, ratio 12.8 SECONDS Normal 11.9-14.4 [facility] Work Phone: [phone] PTP 12.8 SECONDS Normal 11.9-14.4 [facility] Work Phone: [phone] Lab Report: PTTon 05-06-2011 aPTT Coag time (Bld) 26 s Normal 24.1-36.[address] [facility] Work Phone: [phone] Replaced Document: Hyun Esqueda 05-05-2011 Pulse (Heart Rate) 420 ms Invalid Interpretation Code [facility] Work Phone: [phone] Vital Signs Date Time Vital Sign Value Performing Clinician Facility 12-20-2024 14:42-0400 Body mass index (BMI) [Ratio] 40.94 kg/m2 Sharon John GATHERING MACHINE SETTER.BRIDGE BUILDER Work Phone: [facility] 12-20-2024 14:42-0400 Body weight 111.58 kg Sharon John GATHERING MACHINE SETTER.BRIDGE BUILDER Work Phone: [facility] 12-20-2024 14:42-0400 Diastolic blood pressure 76 mm[Hg] Sharon John GATHERING MACHINE SETTER.BRIDGE BUILDER Work Phone: [facility] 12-20-2024 14:42-0400 Heart rate 60 /min Sharon John GATHERING MACHINE SETTER.BRIDGE BUILDER Work Phone: [facility] 12-20-2024 14:42-0400 Respiratory rate 16 /min Sharon John GATHERING MACHINE SETTER.BRIDGE BUILDER Work Phone: [facility] 12-20-2024 14:42-0400 SaO2% (BldA) [Mass fraction] 97 % Sharon John GATHERING MACHINE SETTER.BRIDGE BUILDER Work Phone: [facility] 12-20-2024 14:42-0400 Systolic blood pressure 137 mm[Hg] Sharon John GATHERING MACHINE SETTER.BRIDGE BUILDER Work Phone: [facility] 12-14-2024 08:49-0400 Body temperature 98.4 [degF] Dr. Michael Puga DO Work Phone: [facility] 12-14-2024 08:49-0400 Diastolic blood pressure 60 mm[Hg] Dr. Michael Puga DO Work Phone: [facility] 12-14-2024 08:49-0400 Heart rate 66 /min Dr. Michael Puga DO Work Phone: [facility] 12-14-2024 08:49-0400 Respiratory rate 16 /min Dr. Michael Puga DO Work Phone: 7(470)832-949513 [place] [address] 12-14-2024 08:49-0400 SaO2% (BldA) [Mass fraction] 95 % Dr. Michael Puga DO Work Phone: 8(415)348-100713 [place] [address] 12-14-2024 08:49-0400 Systolic blood pressure 173 mm[Hg] Dr. Michael Puga DO Work Phone: 4(911)207-115713 [place] [address] 12-13-2024 21:31-0400 Diastolic blood pressure 54 mm[Hg] Dr. Michael Puga DO Work Phone: 6(388)341-473913 [place] [address] 12-13-2024 21:31-0400 Heart rate 62 /min Dr. Michael Puga DO Work Phone: 2(522)879-071713 [place] [address] 12-13-2024 21:31-0400 Systolic blood pressure 151 mm[Hg] Dr. Michael Puga DO Work Phone: 3(351)020-683413 [place] [address] 12-13-2024 20:00-0400 Respiratory rate 18 /min Dr. Michael Puga DO Work Phone: 6(223)338-880113 [place] [address] 12-13-2024 20:00-0400 SaO2% (BldA) [Mass fraction] 96 % Dr. Michael Puga DO Work Phone: 9(687)086-363113 [place] [address] 12-13-2024 18:00-0400 Body temperature 98.3 [degF] Dr. Michael Puga DO Work Phone: 1(878)733-218413 [place] [address] 12-12-2024 06:00-0400 Body mass index (BMI) [Ratio] 41 kg/m2 Dr. Michael Puga DO Work Phone: 1(790)276-926013 [place] [address] 12-12-2024 06:00-0400 Body weight 111.[address] Michael Puga DO Work Phone: 5(188)471-985113 [place] [address] 12-07-2024 15:25-0400 Body height 165.[address] Michael Puga DO Work Phone: 7(339)605-535313 [place] [address] 12-04-2024 21:04-0400 Inhaled oxygen concentration 21 % Dr. Michael Puga DO Work Phone: 6(774)264-409813 [place] [address] 12-04-2024 21:04-0400 Inhaled oxygen flow rate 0 L/min Dr. Michael Puga DO Work Phone: 7(096)879-668013 [place] [address] 12-03-2024 14:55-0400 Body temperature 97.5 [degF] Dr. Michael Puga DO Work Phone: 4(397)075-937913 [place] [address] 12-03-2024 14:55-0400 Diastolic blood pressure 55 mm[Hg] Dr. Michael Puga DO Work Phone: 4(241)244-411413 [place] [address] 12-03-2024 14:55-0400 Heart rate 61 /min Dr. Michael Puga DO Work Phone: 9(397)029-478013 [place] [address] 12-03-2024 14:55-0400 Respiratory rate 18 /min Dr. Michael Puga DO Work Phone: 0(006)688-437413 [place] [address] 12-03-2024 14:55-0400 SaO2% (BldA) [Mass fraction] 96 % Dr. Michael Puga DO Work Phone: 2(426)288-917213 [place] [address] 12-03-2024 14:55-0400 Systolic blood pressure 154 mm[Hg] Dr. Michael Puga DO Work Phone: 4(835)610-259913 [place] [address] 12-03-2024 06:00-0400 Body mass index (BMI) [Ratio] 40.1 kg/m2 Dr. Michael Puga DO Work Phone: 2(277)952-518913 [place] [address] 12-03-2024 06:00-0400 Body weight 109.[address] Michael Puga DO Work Phone: 3(101)759-425913 [place] [address] 12-03-2024 03:35-0400 Inhaled oxygen flow rate 2 L/min Dr. Michael Puga DO Work Phone: 9(919)826-442813 [place] [address] 11-30-2024 15:27-0400 Body height 165.[address] Michael Puga DO Work Phone: 8(032)633-488813 [place] [address] 11-29-2024 22:31-0400 Body temperature 98 [degF] Dr. Michael Puga DO Work Phone: 3(128)693-994913 [place] [address] 11-29-2024 22:31-0400 Diastolic blood pressure 56 mm[Hg] Dr. Michael Puga DO Work Phone: 4(064)845-234213 [place] [address] 11-29-2024 22:31-0400 Heart rate 61 /min Dr. Michael Puga DO Work Phone: 2(061)274-618713 [place] [address] 11-29-2024 22:31-0400 Respiratory rate 17 /min Dr. Michael Puga DO Work Phone: 4(912)085-819013 [place] [address] 11-29-2024 22:31-0400 SaO2% (BldA) [Mass fraction] 92 % Dr. Michael Puga DO Work Phone: 1(840)640-203613 [place] [address] 11-29-2024 22:31-0400 Systolic blood pressure 146 mm[Hg] Dr. Michael Puga DO Work Phone: 9(444)551-575013 [place] [address] 11-29-2024 15:58-0400 Body height 165.[address] Michael Puga DO Work Phone: 9(144)721-362513 [place] [address] 11-29-2024 15:58-0400 Body mass index (BMI) [Ratio] 41.8 kg/m2 Dr. Michael Puga DO Work Phone: 7(110)326-847813 [place] [address] 11-29-2024 15:58-0400 Body weight 114.[address] Michael Puga DO Work Phone: 0(829)172-350013 [place] [address] 11-02-2024 09:50-0400 Body height 165.[address] Michael Puga DO Work Phone: 7(275)634-448113 [place] [address] 11-02-2024 09:46-0400 Body mass index (BMI) [Ratio] 39.4 kg/m2 Dr. Michael Puga DO Work Phone: 3(689)428-579713 [place] [address] 11-02-2024 09:46-0400 Body weight 107.[address] Michael Puga DO Work Phone: [facility] 11-02-2024 09:46-0400 Diastolic blood pressure 62 mm[Hg] Dr. Michael Puga DO Work Phone: [facility] 11-02-2024 09:46-0400 Heart rate 59 /min Dr. Michael Puga DO Work Phone: [facility] 11-02-2024 09:46-0400 Respiratory rate 18 /min Dr. Michael Puga DO Work Phone: [facility] 11-02-2024 09:46-0400 Systolic blood pressure 152 mm[Hg] Dr. Michael Puga DO Work Phone: [facility] 10-27-2024 12:00-0400 Diastolic blood pressure 52 mm[Hg] Sarah Merchant PT Work Phone: [facility] 10-27-2024 12:00-0400 Heart rate 63 /min Sarah Merchant PT Work Phone: [facility] 10-27-2024 12:00-0400 SaO2% (BldA) [Mass fraction] 96 % Sarah Merchant PT Work Phone: [facility] 10-27-2024 12:00-0400 Systolic blood pressure 152 mm[Hg] Sarah Merchant PT Work Phone: [facility] 08-30-2024 15:17-0400 Body mass index (BMI) [Ratio] 38.27 kg/m2 Michael Puga DO Work Phone: [facility] 08-30-2024 15:17-0400 Body temperature 97 [degF] Michael Goldsteinrison DO Work Phone: [facility] 08-30-2024 15:17-0400 Body weight 104.33 kg Michael Goldsteinrison DO Work Phone: [facility] 08-30-2024 15:17-0400 Diastolic blood pressure 64 mm[Hg] Michael Puga DO Work Phone: [facility] 04-30-2025 15:17-0400 Heart rate 64 /min Michael Puga DO Work Phone: [facility] 08-30-2024 15:17-0400 Respiratory rate 20 /min Michael Puga DO Work Phone: [facility] 08-30-2024 15:17-0400 Systolic blood pressure 148 mm[Hg] Michael Puga DO Work Phone: [facility] 08-17-2024 15:17-0400 Diastolic blood pressure 68 mm[Hg] Asia Connie GATHERING MACHINE SETTER.BRIDGE BUILDER Work Phone: [facility] 08-17-2024 15:17-0400 Heart rate 61 /min Asia Connie GATHERING MACHINE SETTER.BRIDGE BUILDER Work Phone: [facility] 08-17-2024 15:17-0400 SaO2% (BldA) [Mass fraction] 98 % Asia Connie GATHERING MACHINE SETTER.BRIDGE BUILDER Work Phone: [facility] 08-17-2024 15:17-0400 Systolic blood pressure 136 mm[Hg] Asia Connei GATHERING MACHINE SETTER.BRIDGE BUILDER Work Phone: [facility] 06-21-2024 17:27-0500 Body mass index (BMI) [Ratio] 36.78 kg/m2 Michael Puga DO Work Phone: [facility] 06-21-2024 17:27-0500 Body temperature 97.7 [degF] Michael Puga DO Work Phone: [facility] 06-21-2024 17:27-0500 Body weight 100.25 kg Michael Puga DO Work Phone: [facility] 06-21-2024 17:27-0500 Diastolic blood pressure 70 mm[Hg] Michael Puga DO Work Phone: [facility] 06-21-2024 17:27-0500 Heart rate 64 /min Michael Puga DO Work Phone: [facility] 06-21-2024 17:27-0500 Respiratory rate 20 /min Michael Puga DO Work Phone: [facility] 06-21-2024 17:27-0500 Systolic blood pressure 160 mm[Hg] Michael Puga DO Work Phone: [facility] 06-01-2024 13:20-0500 Body height 165.[address] Michael Puga DO Work Phone: [facility] 06-01-2024 13:20-0500 Body mass index (BMI) [Ratio] 36.6 kg/m2 Dr. Michael Puga DO Work Phone: 2(090)710-147688 [place] [address] 06-01-2024 13:20-0500 Body weight 99.[address] Michael Puga DO Work Phone: 6(178)958-864513 [place] [address] 06-01-2024 13:20-0500 Diastolic blood pressure 73 mm[Hg] Dr. Michael Puga DO Work Phone: 4(457)202-837413 [place] [address] 06-01-2024 13:20-0500 Heart rate 60 /min Dr. Michael Puga DO Work Phone: 0(077)087-340213 [place] [address] 06-01-2024 13:20-0500 Respiratory rate 18 /min Dr. Michael Puga DO Work Phone: 5(457)084-375613 [place] [address] 06-01-2024 13:20-0500 SaO2% (BldA) [Mass fraction] 96 % Dr. Michael Puga DO Work Phone: 4(362)344-223988 [place] [address] 06-01-2024 13:20-0500 Systolic blood pressure 161 mm[Hg] Dr. Michael Puga DO Work Phone: 6(670)106-389288 [place] [address] 05-11-2024 13:05-0500 Body mass index (BMI) [Ratio] 37.01 kg/m2 Key Portillo APRN.BRIDGE BUILDER Work Phone: [facility] 05-11-2024 13:05-0500 Body weight 100.88 kg Key Portillo APRN.BRIDGE BUILDER Work Phone: [facility] 05-11-2024 13:05-0500 Diastolic blood pressure 58 mm[Hg] Key Portillo GATHERING MACHINE SETTER.BRIDGE BUILDER Work Phone: [facility] 05-11-2024 13:05-0500 Heart rate 60 /min Key Portillo GATHERING MACHINE SETTER.BRIDGE BUILDER Work Phone: [facility] 05-11-2024 13:05-0500 SaO2% (BldA) [Mass fraction] 95 % Key Portillo GATHERING MACHINE SETTER.BRIDGE BUILDER Work Phone: [facility] 05-11-2024 13:05-0500 Systolic blood pressure 130 mm[Hg] Key Portillo GATHERING MACHINE SETTER.BRIDGE BUILDER Work Phone: [facility] 05-02-2024 12:35-0500 Body temperature 97.9 [degF] Dr. Michael Puga DO Work Phone: 6(558)110-255888 [place] [address] 05-02-2024 12:35-0500 Diastolic blood pressure 56 mm[Hg] Dr. Michael Puga DO Work Phone: 6(483)281-401988 [place] [address] 05-02-2024 12:35-0500 Heart rate 60 /min Dr. Michael Puga DO Work Phone: 0(723)420-045513 [place] [address] 05-02-2024 12:35-0500 Respiratory rate 16 /min Dr. Michael Puga DO Work Phone: 6(691)664-872288 [place] [address] 05-02-2024 12:35-0500 SaO2% (BldA) [Mass fraction] 92 % Dr. Michael Puga DO Work Phone: 5(681)162-707888 [place] [address] 05-02-2024 12:35-0500 Systolic blood pressure 150 mm[Hg] Dr. Michael Puga DO Work Phone: 0(994)769-683313 [place] [address] 05-02-2024 12:11-0500 Body weight 101.[address] Michael Puga DO Work Phone: 9(904)889-745388 [place] [address] 05-02-2024 07:43-0500 Inhaled oxygen flow rate 2 L/min Dr. Michael Puga DO Work Phone: 8(772)691-150488 [place] [address] 05-02-2024 05:33-0500 Body mass index (BMI) [Ratio] 37.3 kg/m2 Dr. Michael Puga DO Work Phone: [facility] 05-02-2024 01:40-0500 Inhaled oxygen concentration 30 % Dr. Michael Puga DO Work Phone: [facility] 03-31-2024 11:40-0500 Diastolic blood pressure 78 mm[Hg] Ramyundo De León MD Work Phone: [facility] 03-31-2024 11:40-0500 Heart rate 60 /min Raymundo De León MD Work Phone: [facility] 03-31-2024 11:40-0500 SaO2% (BldA) [Mass fraction] 95 % Ramyundo De León MD Work Phone: [facility] 03-31-2024 11:40-0500 Systolic blood pressure 156 mm[Hg] Raymundo De León MD Work Phone: [facility] 03-31-2024 11:20-0500 Respiratory rate 18 /min Raymundo De León MD Work Phone: [facility] 03-31-2024 10:39-0500 Body height 165.1 cm Raymundo De León MD Work Phone: [facility] 03-31-2024 10:39-0500 Body mass index (BMI) [Ratio] 38.27 kg/m2 Raymundo De León MD Work Phone: [facility] 03-31-2024 10:39-0500 Body temperature 98.1 [degF] Raymundo De León MD Work Phone: [facility] 03-31-2024 10:39-0500 Body weight 104.33 kg Raymundo De León MD Work Phone: [facility] 03-27-2024 14:15-0500 Body height 165.1 cm Pac 1 Work Phone: [facility] 03-27-2024 14:15-0500 Body mass index (BMI) [Ratio] 38.27 kg/m2 Pacc 1 Work Phone: [facility] 03-27-2024 14:15-0500 Body temperature 97.5 [degF] Pacc 1 Work Phone: [facility] 03-27-2024 14:15-0500 Body weight 104.33 kg Pacc 1 Work Phone: [facility] 03-27-2024 14:15-0500 Diastolic blood pressure 54 mm[Hg] Pacc 1 Work Phone: [facility] 03-27-2024 14:15-0500 Heart rate 60 /min Pacc 1 Work Phone: [facility] 03-27-2024 14:15-0500 Respiratory rate 16 /min Pacc 1 Work Phone: [facility] 03-27-2024 14:15-0500 SaO2% (BldA) [Mass fraction] 94 % Pacc 1 Work Phone: [facility] 03-27-2024 14:15-0500 Systolic blood pressure 122 mm[Hg] Pacc 1 Work Phone: [facility] 03-23-2024 12:00-0500 Diastolic blood pressure 69 mm[Hg] Sarah Merchant PT Work Phone: [facility] 03-23-2024 12:00-0500 Heart rate 66 /min Sarah Merchant PT Work Phone: [facility] 03-23-2024 12:00-0500 SaO2% (BldA) [Mass fraction] 95 % Sarah Merchant PT Work Phone: [facility] 03-23-2024 12:00-0500 Systolic blood pressure 170 mm[Hg] Sarah Merchant PT Work Phone: [facility] 03-13-2024 14:18-0500 Body height 165.1 cm Sharon Jarrett APRN.BRIDGE BUILDER Work Phone: [facility] 03-13-2024 14:18-0500 Body mass index (BMI) [Ratio] 38.51 kg/m2 Sharon Jarrett GATHERING MACHINE SETTER.BRIDGE BUILDER Work Phone: [facility] 03-13-2024 14:18-0500 Body temperature 97.5 [degF] Sharon John GATHERING MACHINE SETTER.BRIDGE BUILDER Work Phone: [facility] 03-13-2024 14:18-0500 Body weight 104.96 kg Sharon John GATHERING MACHINE SETTER.BRIDGE BUILDER Work Phone: [facility] 03-13-2024 14:18-0500 Diastolic blood pressure 75 mm[Hg] Sharon John GATHERING MACHINE SETTER.BRIDGE BUILDER Work Phone: [facility] 03-13-2024 14:18-0500 Heart rate 71 /min Sharon Jonh GATHERING MACHINE SETTER.BRIDGE BUILDER Work Phone: [facility] 03-13-2024 14:18-0500 SaO2% (BldA) [Mass fraction] 93 % Sharon John GATHERING MACHINE SETTER.BRIDGE BUILDER Work Phone: [facility] 03-13-2024 14:18-0500 Systolic blood pressure 184 mm[Hg] Sharon John GATHERING MACHINE SETTER.BRIDGE BUILDER Work Phone: [facility] 03-01-2024 17:08-0400 Body mass index (BMI) [Ratio] 38.12 kg/m2 Michael Puga DO Work Phone: [facility] 03-01-2024 17:08-0400 Body temperature 97.11 [degF] Michael Puga DO Work Phone: [facility] 03-01-2024 17:08-0400 Body weight 101.15 kg Michael Puga DO Work Phone: [facility] 03-01-2024 17:08-0400 Diastolic blood pressure 80 mm[Hg] Michael Puga DO Work Phone: [facility] 03-01-2024 17:08-0400 Heart rate 64 /min Michael Puga DO Work Phone: [facility] 03-01-2024 17:08-0400 Respiratory rate 20 /min Michael Puga DO Work Phone: [facility] 03-01-2024 17:08-0400 Systolic blood pressure 144 mm[Hg] Michael Puga DO Work Phone: [facility] 12-07-2023 16:00-0400 Diastolic blood pressure 68 mm[Hg] Wilfred Mcclellan CONCRETE [employer]ORER Work Phone: [facility] 12-07-2023 16:00-0400 Systolic blood pressure 144 mm[Hg] Wilfred Mcclellan CONCRETE M[employer]ING PLANT LABORER Work Phone: [facility] 12-01-2023 13:50-0400 Body mass index (BMI) [Ratio] 38.8 kg/m2 Michael Puga DO Work Phone: [facility] 12-01-2023 13:50-0400 Body temperature 98.01 [degF] Michael Puga DO Work Phone: [facility] 12-01-2023 13:50-0400 Body weight 102.97 kg Michael Puga DO Work Phone: [facility] 12-01-2023 13:50-0400 Diastolic blood pressure 76 mm[Hg] Michael Puga DO Work Phone: [facility] 12-01-2023 13:50-0400 Heart rate 64 /min Michael Puga DO Work Phone: [facility] 12-01-2023 13:50-0400 Respiratory rate 24 /min Michael Puga DO Work Phone: [facility] 12-01-2023 13:50-0400 Systolic blood pressure 146 mm[Hg] Michael Puga DO Work Phone: [facility] 10-14-2023 13:24-0400 Body mass index (BMI) [Ratio] 38.46 kg/m2 Key Portillo APRN.BRIDGE BUILDER Work Phone: [facility] 10-14-2023 13:24-0400 Body weight 102.06 kg Key Portillo APRN.BRIDGE BUILDER Work Phone: [facility] 10-14-2023 13:24-0400 Diastolic blood pressure 58 mm[Hg] Key Portillo GATHERING MACHINE SETTER.BRIDGE BUILDER Work Phone: [facility] 10-14-2023 13:24-0400 Heart rate 68 /min Eky Portillo GATHERING MACHINE SETTER.BRIDGE BUILDER Work Phone: [facility] 10-14-2023 13:24-0400 Respiratory rate 16 /min Key Portillo GATHERING MACHINE SETTER.BRIDGE BUILDER Work Phone: [facility] 10-14-2023 13:24-0400 Systolic blood pressure 142 mm[Hg] Key Portillo GATHERING MACHINE SETTER.BRIDGE BUILDER Work Phone: [facility] 04-05-2023 11:22-0500 Body temperature 97.2 [degF] Michael Puga DO Work Phone: [facility] 04-05-2023 11:22-0500 Body weight 101.61 kg Michael Puga DO Work Phone: [facility] 04-05-2023 11:22-0500 Diastolic blood pressure 80 mm[Hg] Michael Puga DO Work Phone: [facility] 04-05-2023 11:22-0500 Heart rate 64 /min Michael Puga DO Work Phone: [facility] 04-05-2023 11:22-0500 Respiratory rate 16 /min Michael Puga DO Work Phone: [facility] 04-05-2023 11:22-0500 Systolic blood pressure 120 mm[Hg] Michael Puga DO Work Phone: [facility] 12-28-2022 14:00-0400 Body height 162.9 cm Pulm Wstr Work Phone: [facility] 12-28-2022 14:00-0400 Body weight 102.06 kg Pulm Wstr Work Phone: [facility] 12-28-2022 14:00-0400 Heart rate 66 /min Pulm Wstr Work Phone: [facility] 12-28-2022 14:00-0400 Respiratory rate 14 /min Pulm Wstr Work Phone: [facility] 12-28-2022 14:00-0400 SaO2% (BldA) [Mass fraction] 96 % Pulm Wstr Work Phone: [facility] 12-22-2022 15:24-0400 Body height 165.1 cm Michael Puga DO Work Phone: [facility] 12-22-2022 15:24-0400 Body weight 103.87 kg Michael Puga DO Work Phone: [facility] 12-22-2022 15:24-0400 Diastolic blood pressure 62 mm[Hg] Michael Puga DO Work Phone: [facility] 12-22-2022 15:24-0400 Heart rate 63 /min Michael Puga DO Work Phone: [facility] 12-22-2022 15:24-0400 Respiratory rate 18 /min Michael Puga DO Work Phone: [facility] 12-22-2022 15:24-0400 SaO2% (BldA) [Mass fraction] 96 % Michael Puga DO Work Phone: [facility] 12-22-2022 15:24-0400 Systolic blood pressure 130 mm[Hg] Michael Puga DO Work Phone: [facility] 06-22-2022 11:42-0500 Body temperature 98.2 [degF] Michael Puga DO Work Phone: [facility] 06-22-2022 11:42-0500 Body weight 102.51 kg Michael Puga DO Work Phone: [facility] 06-22-2022 11:42-0500 Diastolic blood pressure 68 mm[Hg] Michael Puga DO Work Phone: [facility] 06-22-2022 11:42-0500 Heart rate 64 /min Michael Puga DO Work Phone: [facility] 06-22-2022 11:42-0500 Respiratory rate 16 /min Michael Puga DO Work Phone: [facility] 06-22-2022 11:42-0500 Systolic blood pressure 128 mm[Hg] Michael Puga DO Work Phone: [facility] 06-04-2022 15:28-0500 Diastolic blood pressure 80 mm[Hg] Key Portillo GATHERING MACHINE SETTER.BRIDGE BUILDER Work Phone: [facility] 06-04-2022 15:28-0500 Systolic blood pressure 164 mm[Hg] Key Portillo GATHERING MACHINE SETTER.BRIDGE BUILDER Work Phone: [facility] 06-04-2022 14:34-0500 Body weight 106.69 kg Key Portillo GATHERING MACHINE SETTER.BRIDGE BUILDER Work Phone: [facility] 06-04-2022 14:34-0500 Heart rate 63 /min Key Portillo GATHERING MACHINE SETTER.BRIDGE BUILDER Work Phone: [facility] 06-04-2022 14:34-0500 Respiratory rate 16 /min Key Portillo GATHERING MACHINE SETTER.BRIDGE BUILDER Work Phone: [facility] 06-04-2022 14:34-0500 SaO2% (BldA) [Mass fraction] 93 % Key Portillo GATHERING MACHINE SETTER.BRIDGE BUILDER Work Phone: [facility] 04-21-2022 12:31-0500 Body temperature 96.8 [degF] Michael Puga DO Work Phone: [facility] 04-21-2022 12:31-0500 Body weight 105.23 kg Michael Puga DO Work Phone: [facility] 04-21-2022 12:31-0500 Diastolic blood pressure 74 mm[Hg] Michael Puga DO Work Phone: [facility] 04-21-2022 12:31-0500 Heart rate 60 /min Michael Puga DO Work Phone: [facility] 04-21-2022 12:31-0500 Respiratory rate 20 /min Michael Puga DO Work Phone: [facility] 04-21-2022 12:31-0500 Systolic blood pressure 124 mm[Hg] Michael Puga DO Work Phone: [facility] 02-16-2022 11:44-0400 Body temperature 97 [degF] Michael Puga DO Work Phone: [facility] 02-16-2022 11:44-0400 Body weight 105.69 kg Michael Puga DO Work Phone: [facility] 02-16-2022 11:44-0400 Diastolic blood pressure 70 mm[Hg] Michael Puga DO Work Phone: [facility] 02-16-2022 11:44-0400 Heart rate 68 /min Michael Puga DO Work Phone: [facility] 02-16-2022 11:44-0400 Respiratory rate 16 /min Michael Puga DO Work Phone: [facility] 02-16-2022 11:44-0400 Systolic blood pressure 146 mm[Hg] Michael Puga DO Work Phone: [facility] 01-16-2022 09:59-0400 Body temperature 97.59 [degF] Raymundo De León MD Work Phone: [facility] 01-16-2022 09:59-0400 Body weight 105.05 kg Raymundo De León MD Work Phone: [facility] 01-16-2022 09:59-0400 Heart rate 80 /min Raymundo De León MD Work Phone: [facility] 01-16-2022 09:59-0400 SaO2% (BldA) [Mass fraction] 96 % Raymundo De León MD Work Phone: [facility] 01-08-2022 14:45-0400 Diastolic blood pressure 72 mm[Hg] Raymundo De León MD Work Phone: [facility] 01-08-2022 14:45-0400 Heart rate 60 /min Raymundo De León MD Work Phone: [facility] 01-08-2022 14:45-0400 Respiratory rate 16 /min Raymundo De León MD Work Phone: [facility] 01-08-2022 14:45-0400 SaO2% (BldA) [Mass fraction] 92 % Raymundo De León MD Work Phone: [facility] 01-08-2022 14:45-0400 Systolic blood pressure 163 mm[Hg] Raymundo De León MD Work Phone: [facility] 01-08-2022 13:15-0400 Body temperature 97.81 [degF] Raymundo De León MD Work Phone: [facility] 12-18-2021 15:07-0400 Body height 165.1 cm Raymundo De León MD Work Phone: [facility] 12-18-2021 15:07-0400 Body temperature 98.71 [degF] Raymundo De León MD Work Phone: [facility] 12-18-2021 15:07-0400 Body weight 102.51 kg Raymundo De León MD Work Phone: [facility] 12-18-2021 15:07-0400 Diastolic blood pressure 70 mm[Hg] Raymundo De León MD Work Phone: [facility] 12-18-2021 15:07-0400 Heart rate 78 /min Raymundo De León MD Work Phone: [facility] 12-18-2021 15:07-0400 SaO2% (BldA) [Mass fraction] 98 % Raymundo De León MD Work Phone: [facility] 12-18-2021 15:07-0400 Systolic blood pressure 138 mm[Hg] Raymundo De León MD Work Phone: [facility] 10-20-2021 15:25-0400 Body temperature 98.91 [degF] Nunu Gonzalez PA-C Work Phone: [facility] 10-20-2021 15:25-0400 Body weight 101.33 kg Nunu Bogner PA-C Work Phone: [facility] 10-20-2021 15:25-0400 Diastolic blood pressure 80 mm[Hg] Nunu Bogner PA-C Work Phone: [facility] 10-20-2021 15:25-0400 Heart rate 61 /min Nunu Bogner PA-C Work Phone: [facility] 10-20-2021 15:25-0400 Respiratory rate 20 /min Nunu Bogner PA-C Work Phone: [facility] 10-20-2021 15:25-0400 SaO2% (BldA) [Mass fraction] 95 % Nunu Bogner PA-C Work Phone: [facility] 10-20-2021 15:25-0400 Systolic blood pressure 134 mm[Hg] Nunu Bogner PA-C Work Phone: [facility] 06-09-2021 09:35-0500 Body height 165.[address] Michael Puga Work Phone: [facility] Work Phone: 06-09-2021 09:35-0500 Body weight 100.[address] Michael Puga Work Phone: [facility] Work Phone: 06-06-2021 08:07-0500 Body mass index (BMI) [Ratio] 36.9 kg/m2 Dr. Michael Puga Work Phone: [facility] Work Phone: 06-02-2021 11:58-0500 Body mass index (BMI) [Ratio] 36.9 kg/m2 Dr. Michael Puga Work Phone: [facility] Work Phone: 06-02-2021 11:58-0500 Body weight 100.[address] Michael Puga Work Phone: [facility] Work Phone: 06-02-2021 11:58-0500 Diastolic blood pressure 79 mm[Hg] Dr. Michael Puga Work Phone: [facility] Work Phone: 06-02-2021 11:58-0500 Heart rate 70 /min Dr. Michael Puga Work Phone: [facility] Work Phone: 06-02-2021 11:58-0500 Respiratory rate 18 /min Dr. Michael Puga Work Phone: [facility] Work Phone: 06-02-2021 11:58-0500 SaO2% (BldA) [Mass fraction] 94 % Dr. Michael Puga Work Phone: [facility] Work Phone: 06-02-2021 11:58-0500 Systolic blood pressure 174 mm[Hg] Dr. Michael Puga Work Phone: [facility] Work Phone: 12-21-2020 19:10-0400 Diastolic blood pressure 94 mm[Hg] Michael Puga Other Phone: [facility] 12-21-2020 19:10-0400 Heart rate 88 /min Michael Goldsteinrison Other Phone: [facility] 12-21-2020 19:10-0400 Respiratory rate 18 /min Michael Goldsteinrison Other Phone: [facility] 12-21-2020 19:10-0400 SaO2% (BldA) [Mass fraction] 95 % Michael Goldsteinrison Other Phone: [facility] 12-21-2020 19:10-0400 Systolic blood pressure 144 mm[Hg] Michael Puga Other Phone: [facility] 12-21-2020 17:03-0400 Body height 165.1 cm Michael Goldsteinrison Other Phone: [facility] 12-21-2020 17:03-0400 Body temperature 99.86 [degF] Michael Puga Other Phone: [facility] 12-21-2020 17:03-0400 Body weight 98 kg Michael Puga Other Phone: [facility] 10-22-2016 12:59-0400 BMI (Body Mass [...] BP Diastolic 62 mm[Hg] Delisa Juárez RN [facility] Work Phone: 04-15-2016 13:20-0500 BP Systolic 130 mm[Hg] Delisa Juárez RN [facility] Work Phone: 04-15-2016 13:20-0500 BSA (Body Surface Area) 2.12 m2 Delisa Juárez RN [facility] Work Phone: 04-15-2016 13:20-0500 Pulse (Heart Rate) 60 /min Delisa Juárez RN [facility] Work Phone: 04-15-2016 13:20-0500 Respiratory Rate 20 /min Delisa Juárez RN [facility] Work Phone: 04-15-2016 13:20-0500 Weight 106.69 kg Delisa Juárez RN [facility] Work Phone: 05-28-2015 13:30-0500 BP Diastolic 82 mm[Hg] Delisa Juárez RN [facility] Work Phone: 05-28-2015 13:30-0500 BP Systolic 177 mm[Hg] Delisa Juárez RN [facility] Work Phone: 11-22-2014 13:42-0400 Heart rate 60 /min Delisa Juárez RN [facility] Work Phone: 05-05-2011 16:04-0500 Heart rate 420 ms Delisa Juárez RN [facility] Work Phone: 04-07-2011 13:46-0500 Height 165.1 cm Delisa Juárez RN [facility] Work Phone: Encounters Encounter Date Encounter Type Care Provider Facility Start: 12-20-2024 End: 12-20-2024 Patient encounter procedure Sharon Jarrett GATHERING MACHINE SETTER.BRIDGE BUILDER Work Phone: General Surgery Comment on above: Positive occult stoo l blood test (Primary Dx); Anemia, unspecified type Start: 12-20-2024 End: 12-20-2024 ambulatory SHARON JARRETT Facility:[facility] Start: 12-20-2024 ambulatory [employer] [facility] cility:[facility] Start: 12-18-2024 End: 12-18-2024 Telephone encounter Michael Puga DO Work Phone: [facility] Comment on above: POC - PT Start: 12-15-2024 End: 12-15-2024 Telephone encounter Michael Puga DO Work Phone: [facility] Comment on above: [facility] Plan of Care Start: 12-14-2024 End: 12-14-2024 Telephone encounter Michael Alyssa Edd VELASCO Work Phone: [facility] Comment on above: Orders Start: 12-14-2024 Non-patient / Non-visit Dr. Alex Munoz [facility] Work Phone: Start: 12-12-2024 Non-patient / Non-visit Dr. Alex Munoz [facility] Work Phone: Start: 12-11-2024 Non-patient / Non-visit Dr. Alex Munoz [facility] Work Phone: Start: 12-07-2024 Non-patient / Non-visit Dr. Alex Munoz [facility] Work Phone: Start: 12-06-2024 Non-patient / Non-visit Dr. Alex Munoz [facility] Work Phone: Start: 12-05-2024 Non-patient / Non-visit Dr. Alex Munoz [facility] Work Phone: Start: 12-04-2024 Non-patient / Non-visit Dr. Alex Munoz [facility] Work Phone: Start: 12-04-2024 ambulatory Anabel ALVA Facility:[facility] Start: 12-03-2024 ambulatory Michael Puga Kamilah y:[facility] Start: 12-03-2024 End: 12-14-2024 Evaluation and management of inpatient Dr. Radha Munoz DO -Rehab Unit Work Phone: Start: 12-03-2024 Non-patient / Non-visit Dr. Waleska oscar MD -[facility] Work Phone: Start: 12-02-2024 Non-patient / Non-visit Dr. Waleska oscar MD -[facility] Work Phone: Start: 12-01-2024 Non-patient / Non-visit Dr. Waleska oscar MD -[facility] Work Phone: Start: 11-30-2024 Non-patient / Non-visit Dr. Alyson Vicente MD -[facility] Work Phone: Start: 11-30-2024 ambulatory Michael Triana y:BMS Start: 11-30-2024 Non-patient / Non-visit Dr. Beltran SZYMANSKI -[facility] Start: 11-29-2024 End: 12-03-2024 ambulatory Waleska Phillips Facility:[facility] Start: 11-29-2024 End: 12-03-2024 Evaluation and management of inpatient Dr. Tacho Davis DO -Progressive Care Unit Work Phone: Start: 11-29-2024 End: 12-03-[address] Michael Puga DO Work Phone: -[facility] Care Unit Start: 11-27-2024 End: 11-27-2024 Refill Michael Puga DO Work Phone: [facility] Comment on above: Refill Request Start: 11-26-2024 End: 11-26-[address] Michael Puga DO Work Phone: [facility] Start: 11-26-2024 End: 11-26-[address] Gallo Hickey MD -[facility] Work Phone: Start: 11-11-2024 End: 11-13-2024 Refill Key Portillo APRN.BRIDGE BUILDER [facility] Comment on above: Refill Request Start: 11-10-2024 End: 11-13-2024 Telephone encounter Michael Puga DO [facility] Phone: [facility] Comment on above: Patient Update Start: 11-02-2024 End: 11-02-2024 Patient encounter procedure Anabel Horne PA -[facility] Work Phone: Start: 11-02-2024 End: 11-02-[address] Michael Puga DO Work Phone: -[facility] Start: 11-01-2024 End: 11-01-2024 Telephone encounter Keyjayy Portillo APRN.BRIDGE BUILDER Work Phone: [facility] Start: 10-31-2024 End: 10-31-[address] Michael Puga DO Work Phone: -Radiology [facility] Start: 10-31-2024 End: 10-31-2024 Patient encounter procedure Anabel Horne PA -Radiology [facility] Work Phone: Start: 10-31-2024 End: 10-31-2024 ambulatory Anabel ALVA Facility:[facility] Start: 10-27-2024 End: 10-27-2024 ambulatory Sarah Merchant PT Work Phone: [facility] Comment on above: Abnormality of gait (Primary Dx); Weakness; Difficulty walking; Imbalance Start: 10-27-2024 End: 10-27-[address] Michael Puga DO Work Phone: -[facility] Start: 10-27-2024 End: 10-27-[address] [facility] Work Phone: Start: 10-25-2024 End: 10-26-2024 Telephone encounter Michael Puga DO Work Phone: [facility] Comment on above: Medication Question Start: 10-23-2024 End: 10-23-[address] Michael Puga DO Work Phone: -[facility] Start: 10-23-2024 End: 10-23-[address] Gallo Hickey MD -[facility] Work Phone: Start: 10-16-2024 End: 10-16-[address] Michael Puga DO Work Phone: -[facility] Start: 10-16-2024 End: 10-16-[address] Gallo Hickey MD -[facility] Work Phone: Start: 10-09-2024 End: 10-09-2024 ambulatory Joy Sun CONCRETE M[employer]ING PLANT LABORER [facility] Comment on above: Abnormality of gait (Primary Dx); Weakness; Difficulty walking; Imbalance Start: 10-02-2024 End: 10-02-2024 ambulatory Pj Bledsoe PT Work Phone: [facility] Comment on above: Abnormality of gait (Primary Dx); Weakness; Difficulty walking; Imbalance Start: 09-28-2024 End: 09-28-2024 Telephone encounter Key Portillo APRN.BRIDGE BUILDER Work Phone: [facility] Comment on above: report tremor is wor se Start: 09-28-2024 End: 09-28-2024 ambulatory Sarah Merchant PT Work Phone: [facility] Comment on above: Weakness (Primary Dx ); Difficulty walking; Abnormality of gait; Imbalance Start: 09-11-2024 End: 09-11-2024 Refill Michael Puga DO Work Phone: [facility] Comment on above: Refill Request Start: 09-08-2024 End: 09-11-2024 Telephone encounter Michael Puga DO Work Phone: [facility] [place] [facility] Comment on above: Problem with order Start: 09-05-2024 End: 09-08-2024 Telephone encounter Michael Puga DO Work Phone: [facility] [place] [facility] Comment on above: Patient Question Start: 08-30-2024 End: 08-30-2024 Patient encounter procedure Michael Puga DO Work Phone: [facility] [place] [facility] Comment on above: Hypoglycemia (Primar y Dx); Restless leg; Dysthymia; Congestive heart failure, unspecified HF chronicity, unspecified heart failure type (HCC); Obstructive lung disease (HCC); Arthritis, multiple joint involvement; Gait abnormality; Chronic respiratory failure with hypoxia (HCC) Start: 08-30-2024 End: 08-30-2024 ambulatory MICHAEL PUGA Facility:[facility] Start: 08-17-2024 End: 08-17-2024 Office outpatient visit 25 minutes Asia Connie TRUJILLO Work Phone: [facility] [place] [facility] Comment on above: Anxiety (Primary Dx) ; Dysthymia; Congestive heart failure, unspecified HF chronicity, unspecified heart failure type (HCC); Function kidney decreased; Obstructive lung disease (HCC); Pulmonary hypertension (HCC) Start: 08-17-2024 End: 08-17-2024 ambulatory ASIA CONNIE Facility:[facility] Start: 08-16-2024 End: 08-18-2024 Telephone encounter Michael Puga DO Work Phone: [facility] [place] [facility] Comment on above: Patient Update Start: 07-28-2024 End: 07-28-2024 ambulatory Michael Puga Facility:[facility] Start: 07-28-2024 End: 07-28-[address] Gallo Hickey MD -[facility] Work Phone: Start: 07-07-2024 End: 07-07-2024 Patient encounter procedure Anabel ALVA -[facility] Work Phone: Start: 07-07-2024 End: 07-07-2024 ambulatory Michael Puga DO Work Phone: [facility] Comment on above: Medication Question Start: 07-07-2024 End: 07-07-2024 ambulatory Anabel ALVA Facility:[facility] Start: 07-03-2024 Non-patient / Non-visit Dr. Virgil ordaz MD -[facility] Start: 07-03-2024 End: 07-03-[address] Michael Puga DO Work Phone: [facility] Work Phone: Start: 07-03-2024 End: 07-03-2024 Patient encounter procedure Anabel ALVA -Cardiovascular Services Work Phone: Start: 07-03-2024 End: 07-03-2024 ambulatory Michael Puga Facility:[facility] Start: 06-26-2024 End: 07-14-2024 Telephone encounter Michael Puga DO Work Phone: [facility] Comment on above: Patient Update Start: 06-22-2024 End: 06-22-2024 Patient encounter procedure Anabel ALVA -Pulmonary Services/Neurology Work Phone: Start: 06-22-2024 ambulatory Anabel ALVA Facility:[facility] Start: 06-21-2024 End: 06-21-2024 Patient encounter procedure Michael Puga DO Work Phone: [facility] Comment on above: Obstructive lung dis ease (HCC) (Primary Dx); Thyroid disease; Pulmonary hypertension (HCC); WELCH (dyspnea on exertion); Function kidney decreased; Situational mixed anxiety and depressive disorder; Arthritis, multiple joint involvement Start: 06-21-2024 End: 06-22-2024 ambulatory Michael Puga Facility:[facility] Start: 06-16-[address] Faby Puga DO -[facility] Work Phone: Start: 06-16-2024 ambulatory Michael Puga Facilit y:[facility] Start: 06-06-2024 End: 06-06-2024 Telephone encounter Michael Puga DO Work Phone: [facility] Comment on above: Results, Lab Start: 06-03-2024 ambulatory Michael Puga Facilit y:[facility] Start: 06-02-2024 End: 06-02-2024 ambulatory Michael Goldsteinrison Facility:[facility] Start: 06-02-2024 End: 06-02-[address] Michael Puga DO -Home Health Lab Start: 06-01-2024 End: 06-01-2024 ambulatory Michael Puga Facility:[facility] Start: 06-01-2024 End: 06-01-[address] Gallo Hickey MD -[facility] Work Phone: Start: 05-30-2024 End: 05-31-2024 Telephone encounter Michael Puga DO Work Phone: [facility] [place] [facility] Comment on above: Results Start: 05-25-2024 End: 05-25-2024 Telephone encounter Michael Puga DO Work Phone: [facility] [place] [facility] Comment on above: Patient Update; Medi cation Question Start: 05-25-2024 End: 05-25-[address] Michael Puga DO -Laboratory, Specimen Work Phone: Start: 05-25-2024 End: 05-25-2024 ambulatory Michael Puga Facility:[facility] Start: 05-22-2024 ambulatory Michael Puga Facilit y:[facility] Start: 05-19-2024 End: 05-19-2024 Telephone encounter Michael Puga DO [facility] Phone: [facility] Comment on above: Results Start: 05-16-2024 End: 05-18-2024 Telephone encounter Michael Puga DO Work Phone: [facility] [place] [facility] Comment on above: Medication Update; O rders Start: 05-12-2024 End: 05-12-2024 Telephone encounter Key Portillo GATHERING MACHINE SETTER.BRIDGE BUILDER Work Phone: [facility] [place] [facility] Comment on above: Patient Question Results Start: 05-11-2024 End: 05-11-2024 Patient encounter procedure Key Portillo GATHERING MACHINE SETTER.BRIDGE BUILDER Work Phone: [facility] [place] [facility] Comment on above: Hospital discharge f ollow-up (Primary Dx); Congestive heart failure, unspecified HF chronicity, unspecified heart failure type (HCC); Thyroid disease; Restless leg Start: 05-11-2024 End: 05-11-2024 ambulatory KEY PORTILLO Facility:[facility] Start: 05-08-2024 End: 05-08-2024 Telephone encounter Michael Puga DO Work Phone: [facility] Comment on above: Patient Update Start: 05-05-2024 End: 05-05-2024 Telephone encounter Michael Puga DO Work Phone: [facility] Comment on above: Home Health Point of Care Results Start: 05-04-2024 End: 05-05-2024 Patient Outreach Michael Puga DO Work Phone: [facility] Comment on above: Transition Of [facility] Refill Request Start: 05-02-2024 Non-patient / Non-visit Dr. Alyson Martinez [facility] Work Phone: Start: 05-01-2024 End: 05-01-2024 Telephone encounter Michael Shah Puga DO Work Phone: [facility] Comment on above: verbal orders Start: 05-01-2024 Non-patient / Non-visit Dr. Alyson Martinez [facility] Work Phone: Start: 04-30-2024 End: 04-30-2024 ambulatory Michael Puga Facility:[facility] Start: 04-30-2024 End: 04-30-2024 Non-patient / Non-visit Dr. Gallo Hickey MD -[facility] Work Phone: Start: 04-30-2024 ambulatory Michael Goldstienrison Facilit y:[facility] Start: 04-30-2024 End: 05-02-2024 Evaluation and management of inpatient Dr. Jonny Vicente MD -Intensive Care Unit Work Phone: Start: 2024 End: 2024 ambulatory Michael Puga Facility:[facility] Start: 2024 End: [address] Gallo [facility] Work Phone: Start: 04-24-2024 End: 04-24-2024 Telephone encounter Michael Puga DO Work Phone: [facility] Comment on above: Leg Pain Start: 04-20-2024 End: 04-20-2024 ambulatory Sarah Merchant PT Work Phone: [facility] Comment on above: Difficulty walking ( Primary Dx); Weakness; Imbalance Start: 04-18-2024 End: 04-18-2024 ambulatory Sarah Merchant PT Work Phone: [facility] Comment on above: Difficulty walking ( Primary Dx); Imbalance; Weakness Start: 04-10-2024 End: 04-10-2024 ambulatory SHARON JARRETT Facility:[facility] Start: 04-10-2024 End: 04-10-2024 Patient encounter procedure Sharon Jarrett GATHERING MACHINE SETTER.BRIDGE BUILDER Work Phone: General Surgery Comment on above: Other gastritis with out bleeding (Primary Dx) Start: 03-31-2024 ambulatory SHARON JARRETT Facilit y:[facility] Start: 03-31-2024 End: 03-31-2024 Subsequent hospital visit by physician Raymundo De León MD Work Phone: [facility] Endoscopy Comment on above: Epigastric abdominal pain [R10.13] Start: 03-27-2024 End: 03-27-2024 PAT [facility] Work Phone: Pre Anesthesia Comment on above: Pre-operative examin ation (Primary Dx); JOSE on CPAP; Obstructive lung disease (HCC); Primary hypertension; Hyperlipidemia, unspecified hyperlipidemia type; Cardiac resynchronization therapy pacemaker (RESEARCH LABORATORY MANAGER-P) in place; Paroxysmal atrial fibrillation (HCC); Pulmonary [...] Start: 03-27-2024 End: 03-27-2024 Preprocedural examination done [facility]acc [facility] Work Phone: [facility] Start: 03-23-2024 End: 03-23-2024 ambulatory Sarah Merchant PT Work Phone: [facility] Comment on above: Difficulty walking ( Primary Dx); Imbalance; Weakness Start: 03-20-2024 End: 03-20-2024 ambulatory Sarah Merchant PT Work Phone: [facility] Comment on above: Difficulty walking ( Primary Dx); Imbalance; Weakness Start: 03-16-2024 End: 03-16-2024 ambulatory Sarah Merchant PT Work Phone: [facility] Comment on above: Difficulty walking ( Primary Dx); Imbalance; Weakness Start: 03-14-2024 End: 03-14-2024 ambulatory Joy Sun [facility] Comment on above: Difficulty walking ( Primary Dx); Imbalance; Weakness Start: 03-13-2024 End: 03-13-2024 ambulatory SHARON JARRETT Facility:[facility] Start: 03-13-2024 End: 03-13-2024 Patient encounter procedure Sharon Jarrett APRN.BRIDGE BUILDER Work Phone: General Surgery Comment on above: Epigastric abdominal pain (Primary Dx); Pulmonary hypertension (HCC) Start: 03-13-2024 End: 04-03-2024 Telephone encounter Raymundo De León MD Work Phone: General Surgery Comment on above: 03-31-2024 EGD medin a Start: 03-08-2024 End: 03-09-2024 Telephone encounter Michael Puga DO Work Phone: [facility] [place] Comment on above: Wheelchair order Start: 03-02-2024 End: 03-02-2024 ambulatory Sarah Merchant PT Work Phone: [facility] Comment on above: Difficulty walking ( Primary Dx); Imbalance; Weakness Start: 03-01-2024 End: 03-01-2024 Patient encounter procedure Michael Puga DO Work Phone: [facility] [place] Comment on above: Arthritis, multiple joint involvement (Primary Dx); Anxiety; Need for influenza vaccination; Epigastric abdominal pain; Obstructive lung disease (HCC); Gait abnormality; Imbalance Start: 03-01-2024 End: 03-01-2024 ambulatory MICHAEL GOLDSTEINRISON Facility:[facility] Start: 03-01-2024 End: 03-02-2024 Telephone encounter Michael Puga DO Work Phone: [facility] Comment on above: Orders Start: 02-17-2024 End: 02-18-2024 ambulatory Sarah Merchant PT Work Phone: [facility] Comment on above: Difficulty walking ( Primary Dx); Imbalance; Weakness Start: 02-14-2024 End: 02-14-2024 ambulatory Wilfred Mcclellan CONCRETE M[employer]ING PLANT LABORER Work Phone: [facility] Comment on above: Weakness (Primary Dx ); Imbalance Start: 02-10-2024 End: 02-10-2024 ambulatory Sarah Merchant PT Work Phone: [facility] Comment on above: Weakness (Primary Dx ); Imbalance; Difficulty walking Start: 02-07-2024 ambulatory Michael Goldsteinrison Facilit y:[facility] Start: 02-07-2024 End: 02-07-2024 ambulatory Sarah Merchant PT Work Phone: [facility] Comment on above: Weakness (Primary Dx ); Imbalance; Difficulty walking Start: 02-02-2024 ambulatory Michael Puga Facilit y:[facility] Start: 02-02-2024 End: 02-02-2024 ambulatory Michael Puga Facility:[facility] Start: 01-31-2024 End: 01-31-2024 ambulatory Sarah Merchant PT Work Phone: [facility] Comment on above: Weakness (Primary Dx ); Imbalance; Difficulty walking Start: 01-28-2024 End: 01-28-2024 ambulatory Michael Puga Facility:[facility] Start: 01-26-2024 End: 01-26-2024 ambulatory Wilfred Mcclellan CONCRETE M[employer]ING PLANT LABORER Work Phone: [facility] Comment on above: Weakness (Primary Dx ); Imbalance Start: 01-25-2024 End: 01-25-2024 ambulatory Michael Puga Facility:[facility] Start: 01-25-2024 End: 01-25-2024 ambulatory Michael Puga Facility:[facility] Start: 01-18-2024 End: 01-18-2024 ambulatory Sarah Merchant PT Work Phone: [facility] Comment on above: Weakness (Primary Dx ); Imbalance; Difficulty walking Start: 01-10-2024 End: 01-11-2024 Telephone encounter Michael Puga DO Work Phone: [facility] [place] [facility] Comment on above: Wheelchair order Start: 12-13-2023 End: 12-14-2023 ambulatory Sarah Merchant PT Work Phone: [facility] Comment on above: Weakness (Primary Dx ); Difficulty walking; Imbalance Start: 12-08-2023 End: 12-08-2023 ambulatory MICHAEL PUGA Facility:[facility] Start: 12-07-2023 End: 12-07-2023 ambulatory Wilfred Mcclellan CONCRETE M[employer]ING PLANT LABORER Work Phone: [facility] Comment on above: Weakness (Primary Dx ) Start: 12-01-2023 End: 12-01-2023 Patient encounter procedure Michael Puga DO Work Phone: [facility] [place] [facility] Comment on above: Acute bronchitis, un specified organism (Primary Dx); Thyroid disease; Rhonchi; Obstructive lung disease (HCC); Paroxysmal atrial fibrillation (HCC); Disorder of carotid artery (HCC); Malignant melanoma of skin of trunk, except scrotum (HCC) Start: 11-26-2023 Telephone encounter Asia Persaud APRN.BRIDGE BUILDER Work Phone: [facility] [place] [facility] Comment on above: Results Start: 11-25-2023 End: 11-25-2023 ambulatory Sarah Merchant PT Work Phone: [facility] Comment on above: Weakness (Primary Dx ); Difficulty walking; Imbalance Start: 11-23-2023 End: 11-23-2023 ambulatory Sarah Merchant PT Work Phone: [facility] Comment on above: Weakness (Primary Dx ); Difficulty walking; Imbalance Start: 11-15-2023 End: 11-16-2023 ambulatory Sarah Merchant PT Work Phone: [facility] Comment on above: Weakness (Primary Dx ); Difficulty walking; Imbalance Start: 10-18-2023 Refill Michael ochoa DO Work Phone: [facility] [place] [facility] Comment on above: Refill Request Orders; Medication Q uestion Start: 10-14-2023 End: 10-14-2023 Patient encounter procedure Key Portillo BRIDGE BUILDER Work Phone: [facility] [place] [facility] Comment on above: Hospital discharge f ollow-up (Primary Dx); Anxiety; TIA (transient ischemic attack); Hyperlipidemia, unspecified hyperlipidemia type; Sleep disturbances; Community acquired pneumonia, unspecified laterality; On supplemental oxygen therapy; Subclinical hypothyroidism; IFG (impaired fasting glucose); Primary hypertension Start: 10-11-2023 ambulatory Isabella burris RN Work Phone: Bench [employer] Management Start: 10-11-2023 Telephone follow-up Isabella Michel RN Work Phone: [employer] Comment on above: Transition Of Care ( TCM OON follow up ) Weekly phone contact (Recurring) for Transitional Care Management Start: 10-06-2023 Telephone encounter Michael car DO Work Phone: [facility] [place] [facility] Start: 10-04-2023 Patient Outreach Isabella Michel RN Work Phone: [employer] Comment on above: Transition Of Care ( TCM / [facility] [place] 10/01/OON ) Initial phone contact for Transitional Care Management HH: orders, update, medications Start: 10-01-2023 Telephone encounter Michael car DO Work Phone: [facility] [place] [facility] Start: 04-05-2023 End: 04-05-2023 Patient encounter procedure Michael Puga DO Work Phone: [facility] [place] [facility] Comment on above: Subclinical hypothyr oidism [...] Telephone encounter Michael car DO Work Phone: [facility] [place] [facility] Comment on above: Patient Question Start: 01-11-2023 Telephone encounter Michael car DO Work Phone: [facility] [place] [facility] Comment on above: Orders Start: 12-30-2022 Telephone encounter Michael car DO Work Phone: [facility] [place] [facility] Comment on above: Results Start: 12-28-2022 End: 12-28-2022 Subsequent hospital visit by physician [facility] Work Phone: Radiology Comment on above: WELCH (dyspnea on exer tion) [R06.09] Start: 12-28-2022 End: 12-28-2022 ambulatory [facility] Work Phone: [facility] Comment on above: Spirometry Start: 12-28-2022 End: 12-28-2022 Patient encounter procedure [facility] Work Phone: [facility] Start: 12-22-2022 End: 12-22-2022 Patient encounter procedure Michael Puga DO Work Phone: [facility] [place] [facility] Comment on above: WELCH (dyspnea on exer tion) (Primary Dx); Fatigue, unspecified type; Obesity, Class II, BMI 35-39.9; IFG (impaired fasting glucose); Vitamin B12 deficiency; Primary hypertension; Disorder of carotid artery (HCC) Start: 09-29-2022 Refill Michael ochoa DO Work Phone: [facility] [place] [facility] Comment on above: Refill Request Start: 06-29-2022 Refill Michael ochoa DO Work Phone: [facility] [place] [facility] Comment on above: Refill Request Start: 06-22-2022 End: 06-22-2022 Patient encounter procedure Michael Puga DO Work Phone: [facility] [place] Comment on above: Iron deficiency (Lisa radha Dx); Fatigue, unspecified type; SOB (shortness of breath) on exertion; IFG (impaired fasting glucose); Vitamin D deficiency; Vitamin B12 deficiency; Hyperlipidemia, unspecified hyperlipidemia type; Primary hypertension; Obesity, Class II, BMI 35-39.9; Arthritis, multiple joint involvement Start: 06-10-2022 Telephone encounter Key ochoa GATHERING MACHINE SETTER.BRIDGE BUILDER Work Phone: Family Medicine [place] Comment on above: Results Start: 06-08-2022 Telephone encounter Key ochoa GATHERING MACHINE SETTER.BRIDGE BUILDER Work Phone: [facility] [place] Comment on above: Results Start: 06-05-2022 Telephone encounter Michael car DO Work Phone: [facility] [place] [facility] Comment on above: Medication Problem Start: 06-04-2022 End: 06-04-2022 Patient encounter procedure Key Portillo GATHERING MACHINE SETTER.BRIDGE BUILDER Work Phone: [facility] [place] Comment on above: Fatigue, unspecified type (Primary Dx); SOB (shortness of breath) on exertion; Hyperlipidemia, unspecified hyperlipidemia type; Obesity, Class II, BMI 35-39.9; IFG (impaired fasting glucose); Iron deficiency anemia, unspecified iron deficiency anemia type; Vitamin D deficiency; Bilateral leg edema; Primary hypertension Start: 06-02-2022 ambulatory [facility] Phyllis Box MA [facility] Comment on above: Population Health Na vigation Outreach ([facility] ) Extreme fatigue Start: 04-27-2022 Telephone encounter Michael car DO Work Phone: [facility] [place] Comment on above: Patient Question Start: 04-21-2022 End: 04-21-2022 Patient encounter procedure Michael Puga DO Work Phone: [facility] [place] Comment on above: Dysthymia (Primary D x); Situational insomnia; Arthritis, multiple joint involvement; IFG (impaired fasting glucose); Obesity, Class II, BMI 35-39.9; Fatigue, unspecified type; Iron deficiency Start: 02-16-2022 End: 02-16-2022 Patient encounter procedure Michael Puga DO Work Phone: [facility] Comment on above: Dysthymia (Primary D x); [...] hemorrhage [K21.00] Start: 12-31-2021 Telephone encounter Joshua reynoso (Coord) General Surgery Comment on above: Pacemaker Check Start: 12-18-2021 End: 12-18-2021 Patient encounter procedure Raymundo De León MD Work Phone: General Surgery Comment on above: Gastroesophageal ref lux disease with esophagitis without hemorrhage (Primary Dx) Start: 10-20-2021 End: 10-20-2021 Office outpatient visit 25 minutes Nunu Gonzalez PA-C Work Phone: [facility] Comment on above: Urinary frequency (P rimary Dx); Glucosuria Start: 09-10-2021 End: 09-10-[address] Michael Puga Work Phone: [facility] Start: 08-06-2021 Refill July Dias Work Phone: General Surgery Comment on above: Refill Request Start: 06-19-2021 Telephone encounter Asia Persaud APRN.CNP Work Phone: [facility] Comment on above: Results Start: 06-16-2021 End: 06-16-[address] Michael Puga Work Phone: [facility] Start: 06-09-2021 End: 06-09-2021 Admission to same day surgery center Dr. Michael Puga Work Phone: [facility] [employer] Vendor/Special Procedures Start: 06-02-2021 End: 06-02-[address] Michael Puga Work Phone: [facility], [facility] Start: 06-02-2021 End: 06-02-[address] Michael Puga Work Phone: [facility] Start: 12-21-2020 End: 12-21-2020 Emergency department patient visit Kat Gleason [facility] Procedures Date Procedure Procedure Detail Performing Clinician Start: 12-12-[address] Faby Puga DO Work Phone: Start: 12-12-2024 Osmolality measurement, serum Dr. Michael Puga DO Work Phone: Start: 12-05-2024 Measurement of occult blood in stool specimen using immunoassay Dr. Michael Puga DO Work Phone: Start: 12-04-2024 Urea nitrogen measurement, urine Dr. Vance Puga DO Work Phone: Start: 12-04-2024 Serum inorganic phosphate measurement Dr. Michael Puga DO Work Phone: Start: 12-03-[address] Faby [...] Start: 03-31-2024 Esophagogastroduodenoscopy transoral diagnostic Sharon Jarrett APRN.BRIDGE BUILDER Work Phone: Start: 04-05-2023 [employer] COVID-19 VACCINE (2022- SEASON) AGE 12+ YR [...] stick/tablet rgnt auto w/o microscopy Holly Clay GATHERING MACHINE SETTER.BRIDGE BUILDER Work Phone: Start: 06-02-2021 Plain chest X-ray Dr. Michael Puga Work Phone: Start: 12-21-2020 End: 12-21-2020 EKG impression Bernie Aryanderback Start: 12-03-2016 End: 12-03-2016 Pm device progr eval, dual Gallo Hickey MD Start: 10-22-2016 End: 10-22-2016 Follow Up Appt 6 months Loli Knapp Start: 10-22-2016 End: 10-22-2016 MMM Gallo Hickey MD Start: 06-03-2016 End: 06-03-2016 Pm device progr eval, dual Gallo Hickey MD Start: 04-15-2016 End: 04-15-2016 Dietary management education, guidance, and counseling Delisa Juárez RN Start: 04-15-2016 End: 04-15-2016 JOB ANALYSIS MANAGER Anabel Horne PA-C Work Phone: Start: [...] months Loli Knapp Start: 05-28-2015 End: 05-28-2015 MMM Gallo Hickey MD Start: 05-28-2015 End: 08-16-2015 Pacer Clinic Gallo Hickey MD Start: 05-28-2015 End: 05-29-2015 Pm device progr eval, dual Gallo Hickey MD Start: 11-22-2014 End: 11-22-2014 JOB ANALYSIS MANAGER Anabel Horne PA-C Work Phone: Start: [...] Start: 11-22-2014 End: 08-16-2015 Pm device progr eval, dual Gallo Hickey MD Start: 07-25-2014 End: 11-07-2014 Follow Up Appt 6 months Loli Knapp Start: 07-25-2014 End: 11-07-2014 Pacer Clinic Gallo Hickey MD Start: 07-25-2014 End: 07-25-2014 Pm device progr eval, dual Gallo Hickey MD Start: 05-25-2014 End: 05-26-2014 Documentation of current medications Gallo Hickey MD Start: 05-25-2014 End: 11-07-2014 Follow Up Appt 6 months Loli Knapp Start: 05-25-2014 End: 05-25-2014 MM Gallo Hickey MD Start: 05-25-2014 End: 11-07-2014 Pacer Clinic Gallo Hickey MD Start: 05-25-2014 End: 05-25-2014 Pm device progr pito, isauro Hickey MD Start: 01-26-2014 End: 11-07-2014 Follow Up Appt 6 months Loli Knapp Start: 01-26-2014 End: 11-07-2014 Pacer Clinic Gallo Hickey MD Start: 01-26-2014 End: 01-26-2014 Pm device progr pito, dual Gallo Hickey MD Start: 11-22-2013 End: 11-22-2013 JOB ANALYSIS MANAGER Anabel Horne PA-C Work Phone: Start: [...] Start: 07-18-2013 End: 07-19-2013 Pm device progr pito, dual Gallo Hickey MD Start: 05-24-2013 End: 05-26-2013 *BMP Anabel Horne PA-C Work Phone: Start: 05-24-2013 End: 05-24-2013 JOB ANALYSIS MANAGER Anabel Horne PA-C Work Phone: Start: [...] DTaP,Tdap,Td Vaccine (3 - Td or Tdap) [facility] Start: 08-31-2027 Diabetes Screening Diabetes Screening [facility] Start: 05-11-2027 Diabetes Screening Diabetes Screening [facility] Start: 11-24-2026 Diabetes Screening Diabetes Screening [facility] Start: 03-31-2026 Diabetes Screening Diabetes Screening [facility] Start: 12-15-2025 DIABETES SCREEN DIABETES SCREEN [facility] Start: 12-15-2025 Diabetes Screening Diabetes Screening [facility] Start: 09-17-2025 DIABETES SCREEN DIABETES SCREEN [facility] Start: 06-04-2025 DIABETES SCREEN DIABETES SCREEN [facility] Start: 02-13-2025 DIABETES SCREEN DIABETES SCREEN [facility] Start: 01-01-2025 Influenza vaccination Influenza Vaccine (#1) [facility] Start: 12-20-2024 End: 12-20-2024 Patient encounter procedure 12/20/2024 2:30 PM EDT Office Visit General Surgery [address] [place] [address] Sharon Jarrett APRN.BRIDGE BUILDER [address] [place] [address] EGD & colonoscopy consult, blood in stool General Surgery Comment on above: EGD & colonoscopy consult, blood in stoo l Start: 12-14-2024 Patient discharge [facility] Start: 12-11-2024 Referral to service [facility] Start: 12-11-2024 [facility] Start: 12-08-2024 End: 12-08-2024 Patient encounter procedure 12/08/2024 2:40 PM EDT Office Visit [facility] [place] [address] [facility] [place] [address] Michael Puga, [address] [facility] [address] 3 month follow up Family [facility] Comment on above: 3 month follow up Start: 12-06-2024 Patient referral to dietitian [facility] Start: 12-05-2024 [facility] Start: 12-05-2024 Following clinical pathway protocol [facility] Start: 12-05-2024 Speech therapy assessment [facility] Start: 12-05-2024 [facility] Start: 12-05-2024 Catheterization of vein [facility] Start: 12-04-2024 [facility] Start: 12-04-2024 Verification routine [facility] Start: 12-04-2024 Application of elastic bandage [facility] Start: 12-03-2024 Recommendation to continue with treatment [facility] Start: 12-03-2024 Referral to service [facility] Start: 12-03-2024 Urinary bladder training [facility] Start: 12-03-2024 Admission procedure [facility] Start: 12-03-2024 Measuring intake and output [facility] Start: 12-03-2024 End: 12-04-2024 Patient referral to dietitian [facility] Start: 12-03-2024 Vital signs measurements [facility] Start: 12-03-2024 [facility] Start: 12-03-2024 Referral to occupational therapist [facility] Start: 12-03-2024 Patient discharge [facility] Start: 12-03-2024 Continuous positive airway pressure ventilation treatment [facility] Start: 12-01-2024 Physiotherapy of chest [facility] Start: 11-30-2024 Inhalation therapy procedure [facility] Start: 11-29-2024 Application of intermittent pneumatic compression device [facility] Start: 11-29-2024 Following clinical pathway protocol [facility] Start: 11-29-2024 Assessment of risk of venous thromboembolism [facility] Start: 11-29-2024 Catheterization of vein [facility] Start: 11-29-2024 Insertion of catheter into peripheral vein [facility] Start: 11-29-2024 Measuring intake and output [facility] Start: 11-29-2024 Oxygen therapy [facility] Start: 11-29-2024 Providing care according to standard [facility] Start: 11-29-2024 Provision of activity privileges [facility] Start: 11-29-2024 Referral to occupational therapist [facility] Start: 11-29-2024 Referral to service [facility] Start: 11-29-2024 [facility] Start: 11-29-2024 MRI of brain without contrast Brain without Contrast [facility] Start: 11-29-2024 Verification routine [facility] Start: 11-29-2024 Admission procedure [facility] Start: 11-29-2024 Hospital admission, emergency, from emergency room, medical nature [facility] Start: 11-29-2024 Thyroid stimulating hormone measurement [facility] Start: 11-29-2024 Patient referral to dietitian [facility] Start: 10-27-2024 End: 10-27-2024 Patient encounter procedure 10/27/2024 12:45 PM EDT OT/PT/Speech Visit [facility] [address] [facility] [place] [place] [address] Sarah Merchant, PT [address] [facility] [place] [address] CONSULT/WEAKNESS [facility] Comment on above: CONSULT/WEAKNESS Start: 10-18-2024 End: 10-18-2024 Patient encounter procedure 10/18/2024 1:30 PM EDT OT/PT/Speech Visit [facility] [address] [place] [address] Wilfred Mcclellan, CONCRETE M[employer]ING PLANT LABORER [address] [place] [address] CONSULT/WEAKNESS [facility] Comment on above: CONSULT/WEAKNESS Start: 10-13-2024 Covid-19 Vaccine () Covid-19 Vaccine () [facility] Comment on above: Postponed from 08/05/2023 (Declined at t his time) Start: 10-13-2024 RSV Vaccine (1 - 1-dose 60+ series) RSV Vaccine (1 - 1-dose 60+ series) [facility] Comment on above: Postponed from 2001 (Declined at t his time) Start: 10-13-2024 RSV Vaccine (1 - 1-dose 75+ series) RSV Vaccine (1 - 1-dose 75+ series) [facility] Comment on above: Postponed from 2016 (Declined at t his time) Start: 10-09-2024 End: 10-09-2024 Patient encounter procedure 10/09/2024 12:45 PM EDT OT/PT/Speech Visit [facility] [address] [place] [address] Joy Sun, CONCRETE MIXING PLANT LABORER CONSULT/WEAKNESS [facility] Comment on above: CONSULT/WEAKNESS Start: 10-02-2024 End: 10-02-2024 Patient encounter procedure 10/02/2024 3:00 PM EDT OT/PT/Speech Visit [facility] [address] [place] [address] Pj Bledsoe, PT [address] [place] [address] CONSULT/WEAKNESS [facility] Comment on above: CONSULT/WEAKNESS Start: 09-28-2024 End: 09-28-2024 Patient encounter procedure 09/28/2024 2:15 PM EDT OT/PT/Speech Visit [facility] [address] [place] [address] Sarah Merchant, PT [address] [place] [address] CONSULT/WEAKNESS [facility] Comment on above: CONSULT/WEAKNESS Start: 08-30-2024 End: 08-30-2024 Patient encounter procedure 08/30/2024 3:00 PM EDT Office Visit [facility] [place] [address] [facility] [place] [address] Michael Puga DO [address] [facility] [place] [id number] 6 month follow up [facility] [place] Comment on above: 6 month follow up Start: 07-10-2024 End: 07-10-2024 Patient encounter procedure 07/10/2024 3:20 PM EDT Office Visit Family [facility] [address] [facility] [place] [address] Key Portillo, GATHERING MACHINE SETTER.BRIDGE BUILDER [address] [facility] [place] [address] Requesting increase in Paxil [facility] [place] Comment on above: Requesting increase in Paxil Start: 06-21-2024 End: 06-21-2024 Patient encounter procedure 06/21/2024 5:20 PM EST Office Visit Family Jonathan Bryant [address] [facility] [place] [address] Michael Puga DO [address] [facility] [place] [address] 6 wk f/u labs and meds [facility] [place] Comment on above: 6 wk f/u labs and meds Start: 05-26-2024 End: 08-25-2024 Comprehensive metabolic 2000 panel - Serum or Plasma COMPREHENSIVE METABOLIC PANEL Lab Routine Function kidney decreased Congestive heart failure, unspecified HF chronicity, unspecified heart failure type (HCC) Expected: 05/26/2024, Expires: 08/25/2024 [facility] Comment on above: Expected: 05/26/2024, Expires: Start: 05-26-2024 End: 08-25-2024 Natriuretic peptide.B prohormone N-Terminal [Mass/volume] in Serum or Plasma NT PRO BNP Lab Routine Function kidney decreased Congestive heart failure, unspecified HF chronicity, unspecified heart failure type (HCC) Expected: 05/26/2024, Expires: 08/25/2024 [facility] Work Phone: Comment on above: Expected: 05/26/2024, Expires: Start: 05-19-2024 End: 08-18-2024 CBC W Auto Differential panel - Blood COMPLETE BLOOD COUNT AND DIFFERENTIAL Lab Routine Congestive heart failure, unspecified HF chronicity, unspecified heart failure type (HCC) Function kidney decreased Expected: 05/19/2024, Expires: 08/18/2024 [facility] Comment on above: Expected: 05/19/2024, Expires: Start: 05-19-2024 End: 08-18-2024 Hepatic function 2000 panel - Serum or Plasma HEPATIC FUNCTION PNL Lab Routine Congestive heart failure, unspecified HF chronicity, unspecified heart failure type (HCC) Function kidney decreased Expected: 05/19/2024, Expires: 08/18/2024 [facility] Work Phone: Comment on above: Expected: 05/19/2024, Expires: Start: 05-19-2024 End: 08-18-2024 Natriuretic peptide.B prohormone N-Terminal [Mass/volume] in Serum or Plasma NT PRO BNP Lab Routine Congestive heart failure, unspecified HF chronicity, unspecified heart failure type (HCC) Function kidney decreased Expected: 05/19/2024, Expires: 08/18/2024 [facility] Comment on above: Expected: 05/19/2024, Expires: Start: 05-17-2024 End: 08-16-2024 Comprehensive metabolic 2000 panel - Serum or Plasma COMPREHENSIVE METABOLIC PANEL Lab STAT Function kidney decreased Congestive heart failure, unspecified HF chronicity, unspecified heart failure type (HCC) Expected: 05/17/2024, Expires: 08/16/2024 [facility] Work Phone: Comment on above: Expected: 05/17/2024, Expires: Start: 05-11-2024 End: 08-10-2024 Comprehensive metabolic 2000 panel - Serum or Plasma [facility] Comment on above: Expected: 05/11/2024, Expires: Start: 05-11-2024 End: 08-10-2024 Natriuretic peptide.B prohormone N-Terminal [Mass/volume] in Serum or Plasma [facility] Comment on above: Expected: 05/11/2024, Expires: Start: 05-11-2024 End: 08-10-2024 Thyrotropin [Units/volume] in Serum or Plasma [facility] Work Phone: Comment on above: Expected: 05/11/2024, Expires: Start: 05-11-2024 End: 08-10-2024 Thyroxine (T4) free [Mass/volume] in Serum or Plasma [facility] Comment on above: Expected: 05/11/2024, Expires: Start: 05-11-2024 End: 05-11-2024 Patient encounter procedure 05/11/2024 1:00 PM EST Office Visit [facility] [place] [address] [place], [place] [address] Key Portillo, GATHERING MACHINE SETTER.BRIDGE BUILDER [address] [place], [place] [phone] TCM. [facility] Hosp f/u discharged 05-02-24. CHF [facility] [place] Comment on above: TCM. [facility] Hosp f/u discharged 05-02-24. C HF Start: 05-04-2024 End: 05-04-2024 Patient encounter procedure 05/04/2024 1:00 PM EST Office Visit Family [facility] [address] [place], [place] [id number] Key Portillo, GATHERING MACHINE SETTER.BRIDGE BUILDER [address] [place], [place] [phone] right leg pain x 2 weeks [facility] [place] Comment on above: right leg pain x 2 weeks Start: 05-03-2024 Advance Directive Discussion Advance Directive Discussion [facility] Start: 05-02-2024 Patient discharge [facility] Start: 05-01-2024 End: 05-01-2024 Patient encounter procedure 05/01/2024 2:15 PM EST OT/PT/Speech Visit [facility] [address] [place] [address] Sarah Merchant, PT [address] [place] [address] Right knee (referral in scanned docs) [facility] Comment on above: Right knee (referral in scanned docs) Start: 05-01-2024 Referral to service [facility] Start: 04-30-2024 End: 05-01-2024 [facility] Start: 04-30-2024 Dual pressure spontaneous ventilation support [facility] Start: 04-30-2024 Following clinical pathway protocol [facility] Start: 04-30-2024 Continuous pulse oximetry [facility] Start: 04-30-2024 Assessment of risk of venous thromboembolism [facility] Start: 04-30-2024 Elevation of affected extremity [facility] Start: 04-30-2024 Fall prevention [facility] Start: 04-30-2024 Inhalation therapy procedure [facility] Start: 04-30-2024 Insertion of catheter into peripheral vein [facility] Start: 04-30-2024 Introduction of urinary catheter [facility] Start: 04-30-2024 Measuring intake and output [facility] Start: 04-30-2024 Notification of physician [facility] Start: 04-30-2024 Oxygen therapy [facility] Start: 04-30-2024 Patient education [facility] Start: 04-30-2024 Patient referral to dietitian [facility] Start: 04-30-2024 Providing care according to standard [facility] Start: 04-30-2024 Provision of activity privileges [facility] Start: 04-30-2024 Referral to occupational therapist [facility] Start: 04-30-2024 Referral to service [facility] Start: 04-30-2024 Admission procedure [facility] Start: 04-27-2024 End: 04-27-2024 Patient encounter procedure 04/27/2024 11:40 AM EST Office Visit Family [facility] [address] [place] [address] Key Portillo APRN.BRIDGE BUILDER [address] [place] [address] right leg pain x 2 weeks [facility] Comment on above: right leg pain x 2 weeks Start: 04-20-2024 End: 04-20-2024 Patient encounter procedure [facility] Comment on above: Right knee (referral in scanned docs) Start: 04-18-2024 End: 04-18-2024 Patient encounter procedure 04/18/2024 1:30 PM EST OT/PT/Speech Visit [facility] [address] [place] [id number] Sarah Merchant, PT [address] [place] [address] Right knee (referral in scanned docs) [facility] Comment on above: Right knee (referral in scanned docs) Start: 03-31-2024 End: 03-31-2024 Patient encounter procedure 03/31/2024 1:15 PM EST Appointment [facility] Endoscopy [address] [place] [address] Raymundo De León MD [address] [place] [address] [facility] Start: 03-31-2024 Subsequent hospital visit by physician 03/31/2024 10:10 AM EST Hospital Encounter [facility] [address] [place] [address] Raymundo De León MD [address] [place] [address] Yvonne Manley MD [address] [place] [address] Kelsea Mo APRN.PRICING ASSOCIATE Epigastric abdominal pain [R10.13] [facility] Comment on above: Epigastric abdominal pain [R10.13] Start: 03-27-2024 End: 03-27-2024 Anesthesia consultation 03/27/2024 2:20 PM EST PAT Pre Anesthesia [address] [place] [address] 1, Pacc [place] [address] [place] [address] EGD Pre Anesthesia Comment on above: EGD Start: 03-23-2024 End: 03-23-2024 Patient encounter procedure 03/23/2024 12:45 PM EST OT/PT/Speech Visit [facility] [address] [place], [place] [id number] Sarah Merchant, PT [address] [place], [place] [phone] Right knee (referral in scanned docs) [facility] Comment on above: Right knee (referral in scanned docs) Start: 03-20-2024 End: 03-20-2024 Patient encounter procedure 03/20/2024 2:15 PM EST OT/PT/Speech Visit [facility] [address] [place] [address] Sarah Merchant, PT [address] [place], [place] [phone] Right knee (referral in scanned docs) [facility] Comment on above: Right knee (referral in scanned docs) Start: 03-16-2024 End: 03-16-2024 Patient encounter procedure 03/16/2024 12:45 PM EST OT/PT/Speech Visit [facility] [address] [place] [address] Sarah Merchant, PT [address] [place] [address] Right knee (referral in scanned docs) [facility] Comment on above: Right knee (referral in scanned docs) Start: 03-14-2024 End: 03-14-2024 Patient encounter procedure 03/14/2024 10:00 AM EST OT/PT/Speech Visit [facility] [address] [place] [address] Joy Sun, CONCRETE M[employer]ING PLANT LABORER Right knee (referral in scanned docs) [facility] Comment on above: Right knee (referral in scanned docs) Start: 03-13-2024 End: 03-13-2024 Patient encounter procedure General Surgery Comment on above: Epigastric abdominal pain [R10.13] Epigastric abdominal pain [R10.13] - left VM stating she will be seeing Kimberlee and not Dr de león Start: 03-08-2024 End: 03-08-2024 Patient encounter procedure 03/08/2024 12:45 PM EST OT/PT/Speech Visit [facility] [address] [place] [address] Joy Sun, CONCRETE MIXING PLANT LABORER Right knee (referral in scanned docs) [facility] Comment on above: Right knee (referral in scanned docs) Start: 03-02-2024 End: 03-02-2024 Patient encounter procedure 03/02/2024 12:45 PM EDT OT/PT/Speech Visit [facility] [address] [place] [address] Sarah Merchant, PT [address] [place], [place] [phone] Right knee (referral in scanned docs) [facility] Comment on above: Right knee (referral in scanned docs) Start: 03-01-2024 End: 03-01-2024 Patient encounter procedure 03/01/2024 5:40 PM EDT Office Visit [facility] [place] [address] [place] [address] Michael Puga, [address] [facility], [place] [phone] 3 month follow up [facility] [place] Comment on above: 3 month follow up Start: 02-17-2024 End: 02-17-2024 Patient encounter procedure 02/17/2024 3:45 PM EDT OT/PT/Speech Visit [facility] [address] [place] [address] Sarah Merchant, PT [address] [place], [place] [phone] Right knee (referral in scanned docs) [facility] Comment on above: Right knee (referral in scanned docs) Start: 02-14-2024 End: 02-14-2024 Patient encounter procedure 02/14/2024 1:30 PM EDT OT/PT/Speech Visit [facility] [address] [place] [address] Wilfred Mcclellan, CONCRETE M[employer]ING PLANT LABORER [address] [place], [place] [phone] Right knee (referral in scanned docs) [facility] Comment on above: Right knee (referral in scanned docs) Start: 02-10-2024 End: 02-10-2024 Patient encounter procedure 02/10/2024 12:45 PM EDT OT/PT/Speech Visit [facility] [address] [place] [address] Sarah Merchant, PT [address] [place], [place] [phone] Right knee (referral in scanned docs) [facility] Comment on above: Right knee (referral in scanned docs) Start: 02-07-2024 End: 02-07-2024 Patient encounter procedure 02/07/2024 2:15 PM EDT OT/PT/Speech Visit [facility] [address] [place] [address] Sarah Merchant, PT [address] [place] [address] Right knee (referral in scanned docs) [facility] Comment on above: Right knee (referral in scanned docs) Start: 02-03-2024 End: 02-03-2024 Patient encounter procedure 02/03/2024 3:45 PM EDT OT/PT/Speech Visit [facility] [address] [place] [address] Sarah Merchant, PT [address] [place] [address] Right knee (referral in scanned docs) [facility] Comment on above: Right knee (referral in scanned docs) Start: 01-31-2024 End: 01-31-2024 Patient encounter procedure 01/31/2024 2:15 PM EDT OT/PT/Speech Visit [facility] [address] [place] [address] Sarah Merchant, PT [address] [place], [place] [phone] Right knee (referral in scanned docs) [facility] Comment on above: Right knee (referral in scanned docs) Start: 01-26-2024 End: 01-26-2024 Patient encounter procedure 01/26/2024 3:00 PM EDT OT/PT/Speech Visit [facility] [address] [place] [address] Wilfred Mcclellan, CONCR[employer] [address] [place], [place] [phone] Right knee (referral in scanned docs) [facility] Comment on above: Right knee (referral in scanned docs) Start: 01-18-2024 End: 01-18-2024 Patient encounter procedure 01/18/2024 1:30 PM EDT OT/PT/Speech Visit [facility] [address] [place] [address] Sarah Merchant, PT [address] [place], [place] [phone] RECHECK Right knee (referral in scanned docs) [facility] Comment on above: RECHECK Right knee (referral in scanned docs) Start: 01-17-2024 DIABETES SCREEN DIABETES SCREEN [facility] Start: 01-02-2024 Covid-19 Vaccine () Covid-19 Vaccine () [facility] Start: 01-02-2024 Covid-19 Vaccine ( season) Covid-19 Vaccine ( season) [facility] Start: 01-02-2024 Influenza vaccination Influenza Vaccine (#1) [facility] Start: 12-16-2023 End: 12-16-2023 Patient encounter procedure [facility] Comment on above: Right knee (referral in scanned docs) RECHECK Right knee ( referral in scanned docs) Start: 12-13-2023 End: 12-13-2023 Patient encounter procedure 12/13/2023 3:45 PM EDT OT/PT/Speech Visit [facility] [address] [place] [address] Sarah Merchant, PT [address] [place], [place] [phone] Right knee (referral in scanned docs) [facility] Comment on above: Right knee (referral in scanned docs) Start: 12-07-2023 End: 12-07-2023 Patient encounter procedure 12/07/2023 4:30 PM EDT OT/PT/Speech Visit [facility] [address] [place] [address] Wilfred Mcclellan, CONCR[employer]E [employer] [address] [place], [place] [phone] Right knee (referral in scanned docs) [facility] Comment on above: Right knee (referral in scanned docs) Start: 12-02-2023 End: 12-02-2023 Patient encounter procedure 12/02/2023 3:45 PM EDT OT/PT/Speech Visit [facility] [address] [place] [address] Sarah Merchant, PT [address] [place], [place] [phone] Right knee (referral in scanned docs) [facility] Comment on above: Right knee (referral in scanned docs) Start: 12-01-2023 End: 12-01-2023 Patient encounter procedure 12/01/2023 1:20 PM EDT Office Visit [facility] [address] [place], [place] [id number] Michael Puga DO [address] [place], [place] [phone] follow up, review labs [facility] Comment on above: follow up, review labs Start: 11-30-2023 End: 11-30-2023 Patient encounter procedure 11/30/2023 2:15 PM EDT OT/PT/Speech Visit [facility] [address] [place] [address] Sarah Merchant, PT [address] [place], [place] [phone] Right knee (referral in scanned docs) [facility] Comment on above: Right knee (referral in scanned docs) Start: 11-25-2023 End: 11-25-2023 Patient encounter procedure 11/25/2023 8:30 AM EDT OT/PT/Speech Visit [facility] [address] [place] [address] Sarah Merchant, PT [address] [place], [place] [phone] Right knee (referral in scanned docs) [facility] Comment on above: Right knee (referral in scanned docs) Start: 11-13-2023 End: 02-12-2024 CBC W Auto Differential panel - Blood COMPLETE BLOOD COUNT AND DIFFERENTIAL Lab Routine Primary hypertension Expected: 11/13/2023, Expires: 02/12/2024 [facility] Comment on above: Expected: 11/13/2023, Expires: Start: 11-13-2023 End: 02-12-2024 Comprehensive metabolic 2000 panel - Serum or Plasma COMPREHENSIVE METABOLIC PANEL Lab Routine Primary hypertension Expected: 11/13/2023, Expires: 02/12/2024 [facility] Work Phone: Comment on above: Expected: 11/13/2023, Expires: Start: 11-13-2023 End: 02-12-2024 Hemoglobin A1c in Blood HEMOGLOBIN A1C Lab Routine IFG (impaired fasting glucose) Expected: 11/13/2023, Expires: 02/12/2024 [facility] Comment on above: Expected: 11/13/2023, Expires: Start: 11-13-2023 End: 02-12-2024 Lipid 1996 panel - Serum or Plasma LIPID PANEL BASIC Lab Routine Primary hypertension Expected: 11/13/2023, Expires: 02/12/2024 [facility] Comment on above: Expected: 11/13/2023, Expires: Start: 11-13-2023 End: 02-12-2024 Thyroxine (T4) free [Mass/volume] in Serum or Plasma T4 FREE/FREE THYROXINE Lab Routine Subclinical hypothyroidism Expected: 11/13/2023, Expires: 02/12/2024 [facility] Comment on above: Expected: 11/13/2023, Expires: Start: 11-13-2023 End: 02-12-2024 Triiodothyronine (T3) [Mass/volume] in Serum or Plasma T3 Lab Routine Subclinical hypothyroidism Expected: 11/13/2023, Expires: 02/12/2024 [facility] Comment on above: Expected: 11/13/2023, Expires: Start: 10-14-2023 End: 01-13-2024 Thyrotropin [Units/volume] in Serum or Plasma THYROID STIMULATING HORMONE Lab Routine Subclinical hypothyroidism Expected: 10/14/2023, Expires: 01/13/2024 [facility] Comment on above: Expected: 10/14/2023, Expires: Start: 10-14-2023 End: 10-14-2023 Patient encounter procedure 10/14/2023 1:20 PM EDT Office Visit Family [facility] [address] [place] [address] Key Portillo APRN.BRIDGE BUILDER [address] [place] [address] Hospital Follow Up (TCM thru 10/15) [facility] Comment on above: Hospital Follow Up (TCM thru 10/15) Start: 10-06-2023 End: 01-05-2024 Comprehensive metabolic 2000 panel - Serum or Plasma COMPREHENSIVE METABOLIC PANEL Lab Routine Diarrhea, unspecified type Expected: 10/06/2023, Expires: 01/05/2024 [facility] Work Phone: Comment on above: Expected: 10/06/2023, Expires: Start: 08-05-2023 Covid-19 Vaccine () Covid-19 Vaccine () [facility] Start: 07-08-2023 End: 10-07-2023 Thyrotropin [Units/volume] in Serum or Plasma TSH BLD Lab Routine Thyroid disease Expected: 07/08/2023, Expires: 10/07/2023 [facility] Work Phone: Comment on above: Expected: 07/08/2023, Expires: 4 Start: 07-08-2023 End: 10-07-2023 Thyroxine (T4) free [Mass/volume] in Serum or Plasma T4 FREE/FREE THYROX Lab Routine Thyroid disease Expected: 07/08/2023, Expires: 10/07/2023 [facility] Work Phone: Comment on above: Expected: 07/08/2023, Expires: Start: 07-08-2023 End: 10-07-2023 Triiodothyronine (T3) Free [Mass/volume] in Serum or Plasma T3 FREE BLD Lab Routine Thyroid disease Expected: 07/08/2023, Expires: 10/07/2023 [facility] Work Phone: Comment on above: Expected: 07/08/2023, Expires: Start: 06-04-2023 COVID-19 VACCINE (3 - Booster for Pfizer series) COVID-19 VACCINE (3 - Booster for Pfizer series) [facility] Comment on above: Postponed from 09/27/2020 (Declined at t his time) Start: 06-04-2023 COVID-19 VACCINE (3 - Pfizer series) COVID-19 VACCINE (3 - Pfizer series) [facility] Comment on above: Postponed from 09/27/2020 (Declined at t his time) Start: 06-04-2023 Urine microalbumin profile DTAP,TDAP,TD (2 - Tdap) [facility] Comment on above: Postponed from 08/31/2013 (Declined at t his time) Start: 05-03-2023 Advance Directive Discussion Advance Directive Discussion [facility] Start: 04-21-2023 ANNUAL PCP TEAM CHRONIC DISEASE VISIT ANNUAL PCP TEAM CHRONIC DISEASE VISIT [facility] Start: 04-21-2023 BP CONTROLLED (<130/80) BP CONTROLLED (<130/80) [facility] Start: 03-24-2023 End: 05-24-2023 CBC panel - Blood by Automated count CBC Lab Routine Primary hypertension Expected: 03/24/2023, Expires: 05/24/2023 [facility] Work Phone: Comment on above: Expected: 03/24/2023, Expires: Start: 03-24-2023 End: 05-24-2023 Cobalamin (Vitamin B12) [Mass/volume] in Serum or Plasma VITAMIN B12 BLOOD Lab Routine Vitamin B12 deficiency Expected: 03/24/2023, Expires: 05/24/2023 [facility] Work Phone: Comment on above: Expected: 03/24/2023, Expires: 4 Start: 03-24-2023 End: 05-24-2023 Comprehensive metabolic 2000 panel - Serum or Plasma COMP METABOLIC PANEL Lab Routine Primary hypertension Expected: 03/24/2023, Expires: 05/24/2023 [facility] Work Phone: Comment on above: Expected: 03/24/2023, Expires: 4 Start: 03-24-2023 End: 05-24-2023 Hemoglobin A1c in Blood HGB A1C Lab Routine IFG (impaired fasting glucose) Expected: 03/24/2023, Expires: 05/24/2023 [facility] Work Phone: Comment on above: Expected: 03/24/2023, Expires: 4 Start: 03-24-2023 End: 05-24-2023 Thyrotropin [Units/volume] in Serum or Plasma TSH BLD Lab Routine Fatigue, unspecified type Obesity, Class II, BMI 35-39.9 IFG (impaired fasting glucose) Expected: 03/24/2023, Expires: 05/24/2023 [facility] Work Phone: Comment on above: Expected: 03/24/2023, Expires: 4 Start: 03-24-2023 End: 05-24-2023 Thyroxine (T4) free [Mass/volume] in Serum or Plasma T4 FREE/FREE THYROX Lab Routine Fatigue, unspecified type Obesity, Class II, BMI 35-39.9 IFG (impaired fasting glucose) Expected: 03/24/2023, Expires: 05/24/2023 [facility] Work Phone: Comment on above: Expected: 03/24/2023, Expires: 4 Start: 02-16-2023 ANNUAL PCP TEAM CHRONIC DISEASE VISIT ANNUAL PCP TEAM CHRONIC DISEASE VISIT [facility] Start: 02-16-2023 BP CONTROLLED (<130/80) BP CONTROLLED (<130/80) [facility] Start: 01-01-2023 Covid-19 Vaccine () Covid-19 Vaccine () [facility] Start: 01-01-2023 Influenza vaccination [facility] Start: 12-16-2022 ANNUAL PCP TEAM CHRONIC DISEASE VISIT ANNUAL PCP TEAM CHRONIC DISEASE VISIT [facility] Start: 09-19-2022 End: 11-19-2022 25-hydroxyvitamin D3 [Mass/volume] in Serum or Plasma VITAMIN D 25 HYDROXY Lab Routine Vitamin D deficiency Expected: 09/19/2022, Expires: 11/19/2022 [facility] Work Phone: Comment on above: Expected: 09/19/2022, Expires: 3 Start: 09-19-2022 End: 11-19-2022 Cobalamin (Vitamin B12) [Mass/volume] in Serum or Plasma VITAMIN B12 BLOOD Lab Routine Vitamin B12 deficiency Expected: 09/19/2022, Expires: 11/19/2022 [facility] Work Phone: Comment on above: Expected: 09/19/2022, Expires: 3 Start: 09-19-2022 End: 11-19-2022 Comprehensive metabolic 2000 panel - Serum or Plasma COMP METABOLIC PANEL Lab Routine Fatigue, unspecified type Expected: 09/19/2022, Expires: 11/19/2022 [facility] Work Phone: Comment on above: Expected: 09/19/2022, Expires: 3 Start: 09-19-2022 End: 11-19-2022 Hemoglobin A1c in Blood HGB A1C Lab Routine IFG (impaired fasting glucose) Expected: 09/19/2022, Expires: 11/19/2022 [facility] Work Phone: Comment on above: Expected: 09/19/2022, Expires: 3 Start: 09-19-2022 End: 11-19-2022 Iron and Iron binding capacity panel - Serum or Plasma IRON + TIBC Lab Routine Iron deficiency Expected: 09/19/2022, Expires: 11/19/2022 [facility] Work Phone: Comment on above: Expected: 09/19/2022, Expires: 3 Start: 09-19-2022 End: 11-19-2022 Lipid 1996 panel - Serum or Plasma LIPID PANEL BASIC Lab Routine Hyperlipidemia, unspecified hyperlipidemia type Expected: 09/19/2022, Expires: 11/19/2022 [facility] Work Phone: Comment on above: Expected: 09/19/2022, Expires: 3 Start: 06-13-2022 ANNUAL PCP TEAM CHRONIC DISEASE VISIT ANNUAL PCP TEAM CHRONIC DISEASE VISIT [facility] Start: 06-04-2022 End: 08-04-2022 25-hydroxyvitamin D3 [Mass/volume] in Serum or Plasma [facility] Work Phone: Comment on above: Expected: 06/04/2022, Expires: 3 Start: 06-04-2022 End: 08-04-2022 CBC W Auto Differential panel - Blood [facility] Work Phone: Comment on above: Expected: 06/04/2022, Expires: 3 Start: 06-04-2022 End: 08-04-2022 Cobalamin (Vitamin B12) [Mass/volume] in Serum or Plasma [facility] Work Phone: Comment on above: Expected: 06/04/2022, Expires: 3 Start: 06-04-2022 End: 08-04-2022 Comprehensive metabolic 2000 panel - Serum or Plasma [facility] Work Phone: Comment on above: Expected: 06/04/2022, Expires: 3 Start: 06-04-2022 End: 08-04-2022 Ferritin [Mass/volume] in Serum or Plasma [facility] Work Phone: Comment on above: Expected: 06/04/2022, Expires: 3 Start: 06-04-2022 End: 08-04-2022 Hemoglobin A1c in Blood [facility] Work Phone: Comment on above: Expected: 06/04/2022, Expires: 3 Start: 06-04-2022 End: 08-04-2022 Iron and Iron binding capacity panel - Serum or Plasma [facility] Work Phone: Comment on above: Expected: 06/04/2022, Expires: 3 Start: 06-04-2022 End: 08-04-2022 Natriuretic peptide.B prohormone N-Terminal [Mass/volume] in Serum or Plasma [facility] Work Phone: Comment on above: Expected: 06/04/2022, Expires: 3 Start: 06-04-2022 End: 08-04-2022 Thyrotropin [Units/volume] in Serum or Plasma [facility] Work Phone: Comment on above: Expected: 06/04/2022, Expires: 3 Start: 05-03-2022 ADVANCE DIRECTIVE DISCUSSION ADVANCE DIRECTIVE DISCUSSION [facility] Start: 01-01-2022 Influenza vaccination INFLUENZA (#1) [facility] Start: 05-03-2021 ADVANCE DIRECTIVE DISCUSSION ADVANCE DIRECTIVE DISCUSSION [facility] Start: 01-02-2021 COVID-19 VACCINE (3 - Booster for Pfizer series) COVID-19 VACCINE (3 - Booster for Pfizer series) [facility] Start: 09-27-2020 COVID-19 VACCINE (3 - Booster for Pfizer series) COVID-19 VACCINE (3 - Booster for Pfizer series) [facility] Start: 03-04-2019 BP CONTROLLED (<130/80) BP CONTROLLED (<130/80) [facility] Start: 05-12-2017 FECAL OCCULT BLOOD FECAL OCCULT BLOOD [facility] Start: 05-06-2017 End: 05-06-2017 Appointment Appointment [facility] [employer] Work Phone: Start: 12-03-2016 End: 12-03-2016 Appointment Appointment [facility] Work Phone: Start: 12-03-2016 End: 12-03-2016 Follow Up Appt 6 months Follow Up Appt 6 months [facility] Work Phone: Start: 12-03-2016 End: 12-03-2016 [facility] Work Phone: Start: 10-22-2016 End: 10-22-2016 Appointment [facility]ointment [facility] Work Phone: Start: 10-22-2016 End: 10-22-2016 Follow Up Appt 6 months Follow Up Appt 6 months [facility] Work Phone: Start: 10-22-2016 End: 10-22-2016 MMM MMM [facility] Work Phone: Start: 06-03-2016 End: 06-03-2016 Follow Up Appt 6 months Follow Up Appt 6 months [facility] Work Phone: Start: 06-03-2016 End: 06-03-2016 [facility] Work Phone: Start: 2016 RSV Vaccine (1 - 1-dose 75+ series) RSV Vaccine (1 - 1-dose 75+ series) [facility] Start: 04-15-2016 End: 04-15-2016 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 MANAGER [facility] Work Phone: Start: 04-15-2016 End: 04-15-2016 Follow Up Appt 6 months Follow Up Appt 6 months [facility] Work Phone: Start: 12-02-2015 End: 04-06-2016 Follow Up Appt 3 months Follow Up Appt 3 months [facility] Work Phone: Start: 12-02-2015 End: 04-06-2016 Pacer Clinic [facility] Work Phone: Start: 08-30-2015 End: 08-30-2015 Follow Up Appt 6 months Follow Up Appt 6 months [facility] Work Phone: Start: 08-30-2015 End: 08-30-2015 Follow Up Appt 6 weeks Follow Up Appt 6 weeks [facility] Work Phone: Start: 08-30-2015 End: 08-30-2015 MMM MMM [facility] Work Phone: Start: 06-11-2015 End: 06-11-2015 24 hour holter monitor 24 hour holter monitor [facility] Work Phone: Start: 06-11-2015 End: 06-11-2015 Echocardiography Echocardiogram (complete) [facility] Work Phone: Start: 05-28-2015 End: 05-28-2015 *BMP *BMP [facility] Work Phone: Start: 05-28-2015 End: 05-28-2015 Carotid duplex Carotid duplex [facility] Work Phone: Start: 05-28-2015 End: 05-28-2015 Follow Up Appt 3 months Follow Up Appt 3 months [facility] Work Phone: Start: 05-28-2015 End: 08-16-2015 Follow Up Appt 6 months Follow Up Appt 6 months [facility] Work Phone: Start: 05-28-2015 End: 05-28-2015 MMM MMM [facility] Work Phone: Start: 05-28-2015 End: 08-16-2015 Pacer Clinic [facility] Work Phone: Start: 01-16-2015 SHINGRIX VACCINE (1 of 2) SHINGRIX VACCINE (1 of 2) [facility] Start: 01-16-2015 SHINGRIX VACCINE (2 of 3) SHINGRIX VACCINE (2 of 3) [facility] Start: 11-22-2014 End: 11-22-2014 DELORES ESTRELLA [facility] Work Phone: Start: 11-22-2014 End: 11-22-2014 Electrocardiogram, complete EKG (In office) [facility] Work Phone: Start: 11-22-2014 End: 08-16-2015 Follow Up Appt 3 months Follow Up Appt 3 months [facility] Work Phone: Start: 11-22-2014 End: 11-22-2014 Follow Up Appt 6 months Follow Up Appt 6 months [facility] Work Phone: Start: 11-22-2014 End: 08-16-2015 Pacer Clinic Pacer Clinic [facility] Work Phone: Start: 07-25-2014 End: 11-07-2014 Follow Up Appt 6 months Follow Up Appt 6 months [facility] Work Phone: Start: 07-25-2014 End: 11-07-2014 Pacer Clinic [facility] Work Phone: Start: 05-25-2014 End: 11-07-2014 Follow Up Appt 6 months Follow Up Appt 6 months [facility] Work Phone: Start: 05-25-2014 End: 05-25-2014 MMM MMM [facility] Work Phone: Start: 05-25-2014 End: 11-07-2014 Pacer Clinic [facility] Work Phone: Start: 01-26-2014 End: 11-07-2014 Follow Up Appt 6 months Follow Up Appt 6 months [facility] Work Phone: Start: 01-26-2014 End: 11-07-2014 Pacer Clinic Pacer Clinic [facility] Work Phone: Start: 11-22-2013 End: 11-22-2013 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 MANAGER [facility] Work Phone: Start: 11-22-2013 End: 11-22-2013 Follow Up Appt 6 months Follow Up Appt 6 months [facility] Work Phone: Start: 10-25-2013 End: 11-22-2013 Follow Up Appt 3 months Follow Up Appt 3 months [facility] Work Phone: Start: 10-25-2013 End: 11-22-2013 Pacer Clinic Pacer Clinic [facility] Work Phone: Start: 08-31-2013 Urine microalbumin profile DTAP,TDAP,TD (2 - Tdap) [facility] Start: 08-16-2013 End: 08-16-2013 Follow Up Appt Other Follow Up Appt Other [facility] Work Phone: Start: 07-19-2013 End: 07-20-2013 *BMP *BMP [facility] Work Phone: Start: 07-19-2013 End: 07-20-2013 *CBC with Differential *CBC with Differential [facility] Work Phone: Start: 07-19-2013 End: 07-19-2013 Follow Up Appt 1 month Follow Up Appt 1 month [facility] Work Phone: Start: 07-19-2013 End: 07-20-2013 Magnesium *Magnesium [facility] Work Phone: Start: 07-19-2013 End: 07-19-2013 MMM MMM [facility] Work Phone: Start: 07-18-2013 End: 07-19-2013 Follow Up Appt 3 months Follow Up Appt 3 months [facility] Work Phone: Start: 07-18-2013 End: 07-19-2013 Pacer Clinic Pacer Clinic [facility] Work Phone: Start: 05-24-2013 End: 05-26-2013 *BMP *BMP [facility] Work Phone: Start: 05-24-2013 End: 05-24-2013 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 MANAGER [facility] Work Phone: Start: 05-24-2013 End: 05-24-2013 Follow Up Appt 6 months Follow Up Appt 6 months [facility] Work Phone: Start: 05-24-2013 End: 07-18-2013 Follow Up Appt Other Follow Up Appt Other [facility] Work Phone: Start: 04-10-2013 End: 05-16-2013 Follow Up Appt 3 months Follow Up Appt 3 months [facility] Work Phone: Start: 04-10-2013 End: 05-16-2013 Pacer Clinic Pacer Clinic [facility] Work Phone: Start: 12-07-2012 End: 05-16-2013 Follow Up Appt 3 months Follow Up Appt 3 months [facility] Work Phone: Start: 12-07-2012 End: 05-16-2013 Pacer Clinic Pacer Clinic [facility] Work Phone: Start: 11-15-2012 End: 11-15-2012 Follow Up Appt 6 months Follow Up Appt 6 months [facility] Work Phone: Start: 11-15-2012 End: 11-15-2012 MMM MMM [facility] Work Phone: Start: 05-18-2012 End: 05-16-2013 *BMP *BMP [facility] Work Phone: Start: 05-18-2012 End: 05-16-2013 *CBC with Differential *CBC with Differential [facility] Work Phone: Start: 05-18-2012 End: 05-16-2013 Follow Up Appt 6 months Follow Up Appt 6 months [facility] Work Phone: Start: 05-18-2012 End: 05-16-2013 Thyroid stimulating hormone (TSH) *TSH [facility] Work Phone: Start: 05-18-2012 End: 05-16-2013 Thyroxine (T4) *T4 (Total) [employer] Work Phone: Start: 10-27-2011 End: 10-27-2011 Follow Up Appt 6 months Follow Up Appt 6 months [facility] [employer] Work Phone: Start: 07-14-2011 End: 05-16-2013 Follow Up Appt 3 months Follow Up Appt 3 months [facility] [employer] Work Phone: Start: 05-05-2011 End: 05-07-2011 *BMP *BMP [employer] Work Phone: Start: 05-05-2011 End: 05-06-2011 aPTT *PTT-Partial Thromboplastin Time [employer] Work Phone: Start: 05-05-2011 End: 05-06-2011 aPTT Coag time (PPP) *PTT-Partial Thromboplastin Time [employer] Work Phone: Start: 05-05-2011 End: 05-06-2011 CBC W Auto Differential panel - Blood *CBC without Diff [employer] Work Phone: Start: 05-05-2011 End: 05-06-2011 Chest x-ray X-Ray, Chest, PA & Lateral [employer] Work Phone: Start: 05-05-2011 End: 05-06-2011 Coagulation factor induced.INR assay in platelet poor plasma *PT/INR [employer] Work Phone: Start: 05-05-2011 End: 05-07-2011 Electrocardiogram, complete EKG (In office) [employer] Work Phone: Start: 05-05-2011 End: 05-16-2013 Follow Up Appt Other Follow Up Appt Other Blood cell [facility] Work Phone: Start: 05-05-2011 End: 05-06-2011 Left Heart Cath Left Heart Cath Blood cell [employer] Work Phone: Start: 04-07-2011 End: 04-07-2011 Follow Up Appt 3 months Follow Up Appt 3 months Blood cell [employer] Work Phone: Start: 04-02-2006 Medicare Annual Wellness Visit Medicare Annual Wellness Visit [facility] Start: 2001 RSV Vaccine (1 - 1-dose 60+ series) RSV Vaccine (1 - 1-dose 60+ series) [facility] Amphetamines [Presen ce] in Urine by Screen method >1000 ng/mL [facility] Bacteria identified in Urine by Culture URINE CULTURE Microbiology Routine Urinary frequency 10/20/2021 4:08 PM EDT [facility] Work Phone: Benzodiazepine measurement, urine [facility] Cocaine measurement, urine [facility] End: 06-04-2023 ECG COMPLETE ECG COMPLETE ECG Routine SOB (shortness of breath) on exertion 1 Occurrences starting 06/04/2022 until 06/04/2023 [facility] Work Phone: Comment on above: 1 Occurrences starting 06/04/2022 until 06/04/2023 ECG COMPLETE ECG COMPLETE ECG Fatigue, unspecified type SOB (shortness of breath) on exertion Bilateral leg edema 06/04/2022 3:25 PM EST [facility] End: 06-04-2023 Echocardiography ECHO Cardiology Routine SOB (shortness of breath) on exertion 1 Occurrences starting 06/04/2022 until 06/04/2023 [facility] Work Phone: Comment on above: 1 Occurrences starting 06/04/2022 until 06/04/2023 End: 12-18-2022 EGD DIAGNOSTIC EGD DIAGNOSTIC Endoscopy Routine Gastroesophageal reflux disease with esophagitis without hemorrhage 1 Occurrences starting 12/18/2021 until 12/18/2022 [facility] Work Phone: Comment on above: 1 Occurrences starting 12/18/2021 until 12/18/2022 End: 03-13-2025 EGD DIAGNOSTIC EGD DIAGNOSTIC Endoscopy Routine Epigastric abdominal pain Pulmonary hypertension (HCC) 1 Occurrences starting 03/13/2024 until 03/13/2025 [facility] Work Phone: Comment on above: 1 Occurrences starting 03/13/2024 until 03/13/2025 End: 12-20-2025 EGD DIAGNOSTIC EGD DIAGNOSTIC Endoscopy Routine Positive occult stool blood test Anemia, unspecified type 1 Occurrences starting 12/20/2024 until 12/20/2025 [facility] Comment on above: 1 Occurrences starting 12/20/2024 until 12/20/2025 Ethanol [Mass/volume ] in Serum or Plasma [facility] fentaNYL [Presence] in Urine by Screen method [facility] End: 12-20-2025 Flexible sigmoidoscopy study COLONOSCOPY DIAGNOSTIC Endoscopy Routine Positive occult stool blood test Anemia, unspecified type 1 Occurrences starting 12/20/2024 until 12/20/2025 [facility] Work Phone: Comment on above: 1 Occurrences starting 12/20/2024 until 12/20/2025 Folate [Moles/volume ] in Serum or Plasma [facility] Glucose [Mass/volume ] in Serum or Plasma GLUCOSE, BLOOD (POC) Lab Routine Urinary frequency Glucosuria Ordered: 10/20/2021 [facility] Work Phone: Comment on above: Ordered: 10/20/2021 Hemoglobin A1c/Hemoglobin.total in Blood [facility] Magnesium measurement [facility] Methadone measuremen t, urine [facility] NM Heart Views W str ess and W radionuclide IV [facility] Noninvasive ear/puls e oximetry single deter NONINVASV OXYGEN SATUR;SINGLE Procedures Routine Congestive heart failure, unspecified HF chronicity, unspecified heart failure type (HCC) Obstructive lung disease (HCC) Chronic respiratory failure with hypoxia (HCC) Ordered: 09/07/2024 [facility] Work Phone: Comment on above: Ordered: 09/07/2024 Patient Education ED Fall Prevention [facility] Work Phone: Patient referral [facility] Work Phone: Phencyclidine [Prese nce] in Urine [facility] End: 01-11-2024 Polysomnogram POLYSOMNOGRAM (PSG) Procedures Routine Fatigue, unspecified type 1 Occurrences starting 01/11/2023 until 01/11/2024 [facility] Work Phone: Comment on above: 1 Occurrences starting 01/11/2023 until 01/11/2024 End: 01-21-2024 Radiologic exam chest 2 views XR CHEST 2V FRONTAL/LAT Radiology Routine WELCH (dyspnea on exertion) 1 Occurrences starting 12/22/2022 until 01/21/2024 [facility] Work Phone: Comment on above: 1 Occurrences starting 12/22/2022 until 01/21/2024 End: 01-21-2024 SPIROMETRY - BASELINE AND POST DILATOR SPIROMETRY - BASELINE AND POST DILATOR PFT Routine WELCH (dyspnea on exertion) 1 Occurrences starting 12/22/2022 until 01/21/2024 [facility] Work Phone: Comment on above: 1 Occurrences starting 12/22/2022 until 01/21/2024 SPIROMETRY - BASELIN E AND POST DILATOR SPIROMETRY - BASELINE AND POST DILATOR PFT Routine WELCH (dyspnea on exertion) 12/28/2022 2:06 PM EDT [facility] Work Phone: SURGICAL PATHOLOGY [facility] Work Phone: Comment on above: Release Upon Ordering for 1 Occurrences starting 01/08/2022, 1 completed SURGICAL PATHOLOGY [facility] Work Phone: Comment on above: Release Upon Ordering for 1 Occurrences starting 03/31/2024, 1 completed Urine cannabinoid measurement [facility] Urine opiate measurement [facility] End: 12-30-2024 XR Chest PA and Lateral XR CHEST 2V FRONTAL/LAT Radiology Routine Rhonchi Acute bronchitis, unspecified organism 1 Occurrences starting 12/01/2023 until 12/30/2024 [facility] Work Phone: Comment on above: 1 Occurrences starting 12/01/2023 until 12/30/2024 End: 06-10-2025 XR Chest PA and Lateral XR CHEST 2V FRONTAL/LAT Radiology Routine Congestive heart failure, unspecified HF chronicity, unspecified heart failure type (HCC) Hospital discharge follow-up 1 Occurrences starting 05/11/2024 until 06/10/2025 [facility] Comment on above: 1 Occurrences starting 05/11/2024 until 06/10/2025 [facility] Immunizations Immunization Date Immunization Notes Care Provider Deric coburn 03-01-2024 pneumococcal Conjuga te, unspecified formulation Michael Puga DO Work Phone: [facility] Work Phone: 03-01-2024 influenza, high dose seasonal, preservative-free Michael Goldsteinrison DO Work Phone: [facility] 03-01-2024 pneumococcal conjuga te (PCV20) vaccine, 20 valent (PREVNAR 20) Michael Goldsteinrison DO Work Phone: [facility] 03-01-2024 influenza virus vacc ine, unspecified formulation Key Portillo APRN.[employer]IDGE BU[employer] Work Phone: [facility] 04-05-2023 COVID-19 vaccine, ag e 12+ yr, 2022- season ([employer]) Michael Puga DO Work Phone: [facility] Work Phone: 04-05-2023 influenza (HD-IIV4) vaccine, age 65+ yr, high dose, quadrivalent, PF (FLUZONE HIGH-DOSE) Michael Puga DO Work Phone: [facility] Work Phone: 04-05-2023 influenza virus vacc ine, unspecified formulation aSrah Merchant PT Work Phone: [facility] 02-16-2022 influenza, high-dose , quadrivalent vaccine (FLUZONE HIGH DOSE QUADRIVALENT) Michael Puga DO Work Phone: [facility] Work Phone: 02-16-2022 influenza virus vacc ine, unspecified formulation [employer] Work Phone: [facility] 09-16-[address] Michael Puga DO Work Phone: [facility] 06-16-[address] Michael Puga DO Work Phone: [facility] 03-13-2021 influenza, high-dose , quadrivalent vaccine (FLUZONE HIGH DOSE QUADRIVALENT) July [place] PA-C Work Phone: [facility] 08-02-2020 Covid (Pfizer) Dr. Michael Puga DO Work Phone: [facility] 07-04-2020 Covid (Pfizer) Dr. Michael Puga DO Work Phone: [facility] 01-11-2019 influenza, high dose seasonal, preservative-free July [place] PA-C Work Phone: [facility] Work Phone: 12-24-2018 tetanus toxoid, redu alisa diphtheria toxoid, and acellular pertussis vaccine, adsorbed Dr. Michael Puga Work Phone: [facility] 02-21-2018 influenza, high dose seasonal, preservative-free July [place] PA-C Work Phone: [facility] 03-15-2017 influenza, high dose seasonal, preservative-free July [place] PA-C Work Phone: [facility] Work Phone: 01-19-2017 influenza, injectabl e, quadrivalent, preservative free Dr. Michael Puga DO Work Phone: [facility] 01-19-2017 influenza, seasonal, injectable Dr. Michael Puga Work Phone: [facility] Work Phone: 05-06-2016 pneumococcal polysaccharide vaccine, 23 valent July [place] PA-C Work Phone: [facility] Work Phone: 03-09-2016 influenza, high dose seasonal, preservative-free July [place] PA-C Work Phone: [facility] Work Phone: 02-13-2016 influenza, high dose seasonal, preservative-free July [place] PA-C Work Phone: [facility] Work Phone: 02-01-[address] Michael Puga Work Phone: [facility] 03-11-2015 pneumococcal conjuga te vaccine, 13 valent July [place] PA-C Work Phone: [facility] 02-17-2015 influenza, high dose seasonal, preservative-free July Jose PA-C Work Phone: [facility] 11-21-2014 zoster vaccine, live July [place] PA-C Work Phone: [facility] Work Phone: 04-12-2006 influenza virus vacc ine, unspecified formulation July Jose PA-C Work Phone: [facility] Work Phone: 04-12-2006 pneumococcal polysaccharide vaccine, 23 valent July [place] PA-C Work Phone: [facility] Work Phone: 09-01-2003 diphtheria and tetan us toxoids, adsorbed for pediatric use July Jose PA-C Work Phone: [facility] Work Phone: Payers Date Payer Category Payer Self-pay [id number] 2015 Private Health Insurance JENNIFER BARRY PPO [id number] 2015-Present [phone] [address] [place] [address] PPO [id number] 2015 Private Health Insurance [id number] 2006 Medicare MEDICARE MEDICAR E A AND B [id number] 2006-Present [phone] [place] [address] Medicare [id number] 2006 Medicare [id number] 2006 Medicare [id number] 2005 Private Health Insurance [id number] Unknown Unknown [id number] 2.840.1.252097.3.579. 2.462 Unknown [id number] 2.840.1.488044.3.579. 2.462 Unknown [id number] 2.840.1.319556.3.579. 2.462 Unknown [id number] 2.840.1.328538.3.579. 2.462 Unknown [id number] 2.840.1.238711.3.579. 2.462 Unknown [id number] 2.840.1.212929.3.579. 2.462 Unknown [id number] 2.840.1.501225.3.579. 2.462 Unknown [id number] 2.840.1.915128.3.579. 2.462 Unknown [id number] 2.840.1.288861.3.579. 2.462 Unknown [id number] 2.840.1.090282.3.579. 2.462 Unknown [id number] 2.16840.1.735699.3.579. 2.462 Unknown [id number] 2.16840.1.699024.3.579. 2.462 Unknown [id number] 2.840.1.638768.3.579. 2.462 Unknown [id number] 2.16840.1.130865.3.579. 2.462 Unknown [id number] 2.16.840.1.770840.3.579. 2.462 Unknown [id number] 2.16.840.1.723785.3.579. 2.462 Unknown [id number] 2.16.840.1.863537.3.579. 2.462 Unknown [id number] 2.16.840.1.374939.3.579. 2.462 Unknown [id number] 2.16.840.1.035906.3.579. 2.462 Unknown [id number] 2.840.1.914565.3.579. 2.462 Unknown [id number] 2.840.1.304399.3.579. 2.462 Unknown [id number] 2.840.1.213399.3.579. 2.462 Unknown [id number] 2.840.1.858220.3.579. 2.462 Unknown [id number] 2.16.840.1.890054.3.579. 2.462 Unknown [id number] 2.16.840.1.924540.3.579. 2.462 Unknown [id number] 2.840.1.282471.3.579. 2.462 Unknown [id number] 2.840.1.798679.3.579. 2.462 Unknown [id number] 2.16.840.1.551238.3.579. 2.462 Unknown [id number] 2.16.840.1.855761.3.579. 2.462 Unknown [id number] 2.16.840.1.508820.3.579. 2.462 Unknown [id number] 2.16.840.1.583778.3.579. 2.462 Unknown [id number] 2.16840.1.625503.3.579. 2.462 Unknown [id number] 2.16.840.1.762596.3.579. 2.462 Unknown [id number] 2.16.840.1.993983.3.579. 2.462 Unknown [id number] 2.16.840.1.231301.3.579. 2.462 Unknown [id number] 2.16.840.1.719919.3.579. 2.462 Unknown [id number] 2.16.840.1.509482.3.579. 2.462 Unknown [id number] 2.840.1.150921.3.579. 2.462 Unknown [id number] 2.840.1.644646.3.579. 2.462 Unknown [id number] 2.840.1.528949.3.579. 2.462 Unknown [id number] 2.840.1.218524.3.579. 2.462 Unknown [id number] 2.840.1.145849.3.579. 2.462 Unknown [id number] 2.840.1.212433.3.579. 2.462 Unknown [id number] 2.840.1.677216.3.579. 2.462 Unknown [id number] 2.840.1.971660.3.579. 2.462 Unknown [id number] 2.840.1.624922.3.579. 2.462 Unknown [id number] .840.1.406032.3.579. 2.462 Unknown [id number] 2.840.1.946989.3.579. 2.462 Unknown [id number] 2.840.1.526847.3.579. 2.462 Unknown [id number] 2.840.1.662455.3.579. 2.462 Social History Date Type Detail Facility [facility] Start: 06-09-2021 Tobacco smokin g consumption unknown [facility] Start: 12-16-2021 End: 12-04-2024 Tobacco smoking status NHIS Never smoked tobacco [facility] Start: 06-13-2021 End: 08-17-2024 Alcohol intake Ex-drinker (finding) [facility] Start: 12-12-2018 History SDOH Food Worry 1 [facility] Start: 12-12-2018 History SDOH Transpo rt Med 2 [facility] Start: 1940 Sex Assigned At Not on file C [facility] Start: 08-23-2021 End: 02-16-2022 Exposure to SARS-CoV-2 (event) Not sure [facility] Start: 05-06-2017 None [facility] Start: 12-24-2018 With Family [facility] Start: 1940 Sex Assigned At Female W [facility] Start: 12-16-2021 Tobacco use and exposure Smokeless tobacco non-user [facility] Work Phone: Start: 12-22-2022 End: 01-26-2024 History of Social function [facility] Start: 12-22-2022 End: 01-26-2024 Tobacco use panel [facility] Start: 04-03-2012 Adult Depression Screening Assessment 0 [facility] (I/We) worried wheth er (my/our) food would run out before (I/we) got money to buy more. Never true [facility] Start: 07-14-2024 End: 07-20-2024 Sex Female (finding) [facility] Medical Equipment Procedure Code Equipment Code Equipment Origin al Text Equipment Identifier Dates ([id number]) Dual-chamber implantable pacemaker, rate-responsive ()[id number] FDA Start: 06-09-2021 Use with blood glucose test 2 times daily, Insulin Dep? No [id number] Start: 08-30-2024 Use with blood glucose test 2 times daily. Insulin Dep? No [id number] Start: 08-30-2024 PACEMAKER LEAD FDA Start: 01-29-2011 PACEMAKER LEAD FDA Start: 01-29-2011 PACEMAKER LEAD FDA Start: 01-29-2011 PACEMAKER LEAD FDA Start: 01-29-2011 PACEMAKER LEAD FDA Start: 01-29-2011 PACEMAKER LEAD FDA Start: 01-29-2011 Goals Date Patient Goal Desired Activity /State Personal health goal Functional Status Date Assessment Result Facility 12-14-2024 Functional status Activity Abili ty Independent [facility] Work Phone: 12-13-2024 Functional status Activity Abili ty Independent [facility] Work Phone: 12-11-2024 Functional status Ambulates;Bath room Privilege [facility] Work Phone: 12-09-2024 Functional status Tolerates Activity Well [facility] Work Phone: 12-03-2024 Functional status Ambulates;Up ad jane;Norah ir [facility] Work Phone: 05-02-2024 Functional status Ambulates;Chair [facility] Work Phone: 11-28-2013 Are you deaf, or do you have serious difficulty hearing No 11/28/2013 4:55 PM EDT Rain 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), GANDY DANCER No [facility] 11-28-2013 Are you blind, or do you have serious difficulty seeing, even when wearing glasses No 11/28/2013 4:55 PM EDT Rain 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), GANDY DANCER No [facility] 11-28-2013 Do you have serious difficulty walking or climbing stairs No 11/28/2013 4:55 PM EDT Rain 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), GANDY DANCER No [facility] 11-28-2013 Do you have difficul ty dressing or bathing No 11/28/2013 4:55 PM EDT Rain 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), GANDY DANCER No [facility] 11-28-2013 Because of a physica l, mental, or emotional condition, do you have difficulty doing errands alone such as visiting a physician's office or shopping No 11/28/2013 4:55 PM EDT Rain 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), GANDY DANCER No [facility] Mental Status Date Assessment Result Facility 12-14-2024 Cognitive function Voice/Name [facility] Work Phone: 12-13-2024 Cognitive function Voice/Name [facility] Work Phone: 12-03-2024 Cognitive function Voice/Name [facility] Work Phone: 11-29-2024 Cognitive function Level Of Cons ciousness Awake;Alert;Appropriate;Fo llows Commands [facility] Work Phone: 05-02-2024 Cognitive function Voice/Name [facility] Work Phone: 11-28-2013 Because of a physica l, mental, or emotional condition, do you have serious difficulty concentrating, remembering, or making decisions No 11/28/2013 4:55 PM EDT Rain 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), GANDY DANCER No [facility] Clinical Notes 10-17-2020 to 12-20-2024 Sharon Jarrett APRN.BRIDGE BU[employer] - 12/20/2024 2:30 PM EDTTelephone Encounter - July Marcano RN - 12/18/2024 5:47 PM EDTTelephone Encounter - July Marcano RN - 12/18/2024 5:47 PM EDT Note Date & Type Note Facility 12-20-2024 History of Presen t illness Narrative HISTORY AND PHYSICAL Michael Meier : 1940 REFERRING PHYSICIAN: No referring provider defined for this encounter. CHIEF COMPLAINT: Patient presents with: Consult: Blood in stool HPI: Michael is a 84 year old female referred for endoscopy. Michael notes anemia, + iFOBT . Michael was recently admitted to the hospital for [facility] d/t SSRI. During her stay she was noted to be anemic at 10.6 (hgb). Upon admission to the hospital patient was taking meloxicam & prednisone daily along with high dose of paxil.- hx of GI bleed in the past. Michael denies abdominal pain. Michael denies diarrhea. Michael notes constipation. -restarted iron Michael denies a change in bowel habits. Michael denies melena. Michael denies bright red blood per rectum. Michael denies hemorrhoids. Michael denies family history of colon issues. Michael notes heartburn. -on omperazole BID -and carafate as needed Michael denies dysphagia. Michael denies a history of ulcers/ peptic ulcer disease. Michael has a hx of JOSE c/w CPAP, however the mask was found to be ill-fitting while during her hospital stay. She is due to follow up with Dr. Alcala. Also has obstructive lung dx. Michael follows with [facility] for HTN, Afib, SSS s/p pacemaker (2010), PHTN. Last OV 10/2024. Last ECHO 10/2024 EF: 60%, Pulm systolic pressure: 65mmhg. She denies CP, dizziness, palpitations, syncope, edema. She notes +Shortness of Breath today & 4lb weight gain- thinks this is contributing to her sob. She just came from PCP visit & she is unable to restart lasix d/t hyponatremia. Other medical history is significant for hx of TIA (2018), obesity, arthritis, and anxiety- for which she is being weaned off her SSRI currently. Michael has undergone prior endoscopy. Last EGD was 03/[address] De León in [place]. Sedation: MAC Impression: - 3 cm hiatal hernia. - Z-line regular, 37 cm from the incisors. Biopsied. - Gastritis, characterized by congestion (edema), erosions, erythema and linear erosions. Biopsied. - Normal examined duodenum. Biopsied. Last colonoscopy was was 06/[address] Mcclure at [facility]. Sedation: Impression: - The entire examined colon is normal on direct and retroflexion views. - No specimens collected. Current Outpatient Medications Medication Sig sertraline (ZOLOFT) 25 mg tablet Take 25 mg by mouth once daily. rosuvastatin (CRESTOR) 10 mg tablet Take 1 tablet by mouth daily at bedtime. gabapentin (NEURONTIN) 100 mg capsule take 100 mg in the evening daily x 1 week then increase to 200 mg in the evening daily x 1 week then can increase to 300 mg in the evening daily meloxicam (MOBIC) 15 mg tablet Take 1 tablet by mouth once daily. Take with food. levothyroxine (SYNTHROID) 50 mcg tablet Take 1 tablet by mouth daily before breakfast. In the morning, Take on empty stomach at least 30 min before eating. For thyroid. sucralfate (CARAFATE) 100 mg/mL suspension Take 10 mL by mouth four times daily. Omeprazole Magnesium (PRILOSEC OTC) 20 mg tablet Take 1 tablet by mouth once daily. cyanocobalamin (VITAMIN B-12) 1,000 mcg tab Take 1,000 mcg by mouth once daily. hydrALAZINE (APRESOLINE) 25 mg tablet Take 50 mg by mouth two times a day at 6 am and 9 pm. Azelastine HCl (OPTIVAR) 0.05 % ophthalmic solution aspirin, enteric coated (ASPIRIN, ENTERIC COATED) 81 mg EC tablet Take 81 mg by mouth once daily. PACERONE 200 mg tablet Take 200 mg by mouth once daily. ubidecarenone (COQ-10 ORAL) Take by mouth. diltiazem CD (CARDIZEM CD) 240 mg 24 hr capsule Take 1 capsule by mouth once daily. blood sugar diagnostic test strip Use with blood glucose test 2 times daily, Insulin Dep? No Lancets Use with blood glucose test 2 times daily. Insulin Dep? No alcohol swabs Use with blood glucose test 2 times daily. Insulin Dep? No RESTASIS 0.05 % ophthalmic emulsion No current facility-administered medications for this visit. [...] FEM PROSTC AGRFT/ALGRFT Left 07/2016 ARTHRP KATIE CONDYLE&PLATU MEDIAL&LAT COMPARTMENTS 11/15/2009 Knee replacement, total -Left - [facility] ARTHRP KNE CONDYLE&PLATU MEDIAL&LAT [...] Father other (congestive heart failure) Father SOCIAL HISTORY[1] REVIEW OF SYMPTOMS: REVIEW OF SYSTEMS: General: The patient + fatigue, denies weight loss, + weight gain, denies feeling hot, and feelings of cold. Eyes: The patient denies glaucoma, denies eye injury/surgery, + glasses or contacts. Ear/Nose/Throat: [...] + acid reflux, denies ulcers, denies jaundice/hepatitis, denies gallbladder problems, denies vomiting, denies black or tarry stools, denies hemorrhoids, denies bleeding from rectum, + diverticulitis, denies constipation, [...] stroke/+TIA. Psychiatric: The patient denies psychiatric medications, denies depression, and denies voices. Endocrine: The patient denies thyroid disorders, denies diabetes, and denies hormonal problems. Hematologic: The patient + a history of bruising, denies bleeding, and + anemia. Infections: The patient + a history of measles and mumps, denies rheumatic fever, and denies sexually transmitted diseases. Musculoskeletal: The patient + back pain/injury, denies back problems, denies sciatica, denies knee/foot trouble, denies arthritis, or denies gout. PHYSICAL EXAMINATION: General: The patient is 84 year old, female well nourished, well hydrated in no acute distress. The patient is oriented to time, place, and person. VITALS: Blood pressure 137/76, pulse 60, resp. rate 16, weight 111.6 kg (246 lb), SpO2 97%. Body mass index is 40.94 kg/m . HEENT: Normal cephalic, ataumatic, pupils are equally round, sclera are anicteric, mucous membranes are moist, oropharynx is clear. Neck has no masses or asymmetry . Respiratory: Clear to auscultation. Cardiac: Regular rate and rhythm. Abdominal exam: Soft, nontender, with no palpable masses. No hepatosplenomegaly. No palpable hernias. Extremities: no clubbing or cyanosis LABORATORY VALUES: As Noted RADIOLOGIC STUDIES: As Noted Assessment IMPRESSION: anemia, positive occult stool blood test PLAN: I have reviewed my findings with the surgeon. Will plan for upper and lower endoscopy. We discussed the risks and benefits of the planned endoscopy in terms understandable to the patient. I have informed the patient that complications can occur including failure to complete the endoscopy and perforation. Michael had the opportunity to ask questions concerning the planned endoscopy. Michael freely consents to surgery. I plan to use miraLAX bowel preparation I have explained to the patient the difference between IV conscious sedation and MAC anesthesia - and I have offered either, according to the patient's wishes. I have explained that with IV conscious sedation there is no anesthesia provider available and therefore there is a limitation of the amount of IV medications that can be given and that the patient may wake up in the middle of the procedure and/or experience pain/discomfort during the procedure. Further discussion was done and the patient was given the opportunity to ask questions and all questions were answered. MAC anesthesia. Michael was counseled that if there are changes in his/her medical condition, to let the office know if surgery should proceed. If there are changes in patient's medical condition from time of this encounter to the day of the procedure that preclude anesthesia, patient may have procedure cancelled for patient's safety. Diagnoses: (R19.5) Positive occult stool blood test (primary encounter diagnosis) (D64.9) Anemia, unspecified type Portions of this documentation were copied and pasted from previous office visit notes in order to provide a cohesive continuity of the history. The note has been reviewed and edited and updated as necessary. Sharon Jarrett APRN.CNP [1] Social History Tobacco Use Smoking status: Never Smokeless tobacco: Never Vaping Use Vaping status: Never Used Substance Use Topics Alcohol use: Not Currently Comment: rarely Drug use: No documented in this encounter [facility] 12-20-2024 Note HNO ID: [id number] Author: SHARON JARRETT APRN.CNP Service: ? Author Type: Nurse Practitioner Type: Progress Notes Filed: 12/20/2024 15:39 Note Text: HISTORY AND PHYSICAL Michael Meier : 1940 REFERRING PHYSICIAN: No referring provider defined for this encounter. CHIEF COMPLAINT: Patient presents with: Consult: Blood in stool HPI: Michael is a 84 year old female referred for endoscopy. Michael notes anemia, + iFOBT . Michael was recently admitted to the hospital for [facility] d/t SSRI. During her stay she was noted to be anemic at 10.6 (hgb). Upon admission to the hospital patient was taking meloxicam AND prednisone daily along with high dose of paxil.- hx of GI bleed in the past. Michael denies abdominal pain. Michael denies diarrhea. Michael notes constipation. -restarted iron Michael denies a change in bowel habits. Michael denies melena. Michael denies bright red blood per rectum. Michael denies hemorrhoids. Michael denies family history of colon issues. Michael notes heartburn. -on omperazole BID -and carafate as needed Michael denies dysphagia. Michael denies a history of ulcers/ peptic ulcer disease. Michael has a hx of JOSE c/w CPAP, however the mask was found to be ill-fitting while during her hospital stay. She is due to follow up with Dr. Alcala. Also has obstructive lung dx. Michael follows with [facility] for HTN, Afib, SSS s/p pacemaker (2010), PHTN. Last OV 10/2024. Last ECHO 10/2024 EF: 60%, Pulm systolic pressure: 65mmhg. She denies CP, dizziness, palpitations, syncope, edema. She notes +Shortness of Breath today AND 4lb weight gain- thinks this is contributing to her sob. She just came from PCP visit AND she is unable to restart lasix d/t hyponatremia. Other medical history is significant for hx of TIA (2018), obesity, arthritis, and anxiety- for which she is being weaned off her SSRI currently. Michael has undergone prior endoscopy. Last EGD was 03/[address] De León in [place]. Sedation: MAC Impression: - 3 cm hiatal hernia. - Z-line regular, 37 cm from the incisors. Biopsied. - Gastritis, characterized by congestion (edema), erosions, erythema and linear erosions. Biopsied. - Normal examined duodenum. Biopsied. Last colonoscopy was was 06/[address] Mcclure at [facility]. Sedation: Impression: - The entire examined colon is normal on direct and retroflexion views. - No specimens collected. Current Outpatient Medications Medication Sig sertraline (ZOLOFT) 25 mg tablet Take 25 mg by mouth once daily. rosuvastatin (CRESTOR) 10 mg tablet Take 1 tablet by mouth daily at bedtime. gabapentin (NEURONTIN) 100 mg capsule take 100 mg in the evening daily x 1 week then increase to 200 mg in the evening daily x 1 week then can increase to 300 mg in the evening daily meloxicam (MOBIC) 15 mg tablet Take 1 tablet by mouth once daily. Take with food. levothyroxine (SYNTHROID) 50 mcg tablet Take 1 tablet by mouth daily before breakfast. In the morning, Take on empty stomach at least 30 min before eating. For thyroid. sucralfate (CARAFATE) 100 mg/mL suspension Take 10 mL by mouth four times daily. Omeprazole Magnesium (PRILOSEC OTC) 20 mg tablet Take 1 tablet by mouth once daily. cyanocobalamin (VITAMIN B-12) 1,000 mcg tab Take 1,000 mcg by mouth once daily. hydrALAZINE (APRESOLINE) 25 mg tablet Take 50 mg by mouth two times a day at 6 am and 9 pm. Azelastine HCl (OPTIVAR) 0.05 % ophthalmic solution aspirin, enteric coated (ASPIRIN, ENTERIC COATED) 81 mg EC tablet Take 81 mg by mouth once daily. PACERONE 200 mg tablet Take 200 mg by mouth once daily. ubidecarenone (COQ-10 ORAL) Take by mouth. diltiazem CD (CARDIZEM CD) 240 mg 24 hr capsule Take 1 capsule by mouth once daily. blood sugar diagnostic test strip Use with blood glucose test 2 times daily, Insulin Dep? No Lancets Use with blood glucose test 2 times daily. Insulin Dep? No alcohol swabs Use with blood glucose test 2 times daily. Insulin Dep? No RESTASIS 0.05 % ophthalmic emulsion No current facility-administered medications for this visit. [...] HX APPENDECTOMY HX ARTHRP ACETBLR/PROX FEM PROSTC (more content not included)... [facility] 12-18-2024 Telephone encounter Note Called and left a detailed voicemail notifying [facility] PT of providers message. Clinic phone number was left in case she had any questions. July Marcano RN [facility] 12-18-2024 Miscellaneous Notes Called and left a detailed voicemail notifying Yvonne-[facility] PT of providers message. Clinic phone number was left in case she had any questions. July Marcano RN Noted, agree with below Michael Puga DO FYI: Yvonne with [facility] PT calls with pt's POC. PT will see pt twice a week x 4 weeks for strengthening, gait and transfer training, and fall prevention. Constance Ervin LPN documented in this encounter [facility] 12-18-2024 Telephone encounter Note Noted, agree with below Michael Puga DO [facility] 12-18-2024 Telephone encounter Note FYI: Yvonne with [facility] PT calls with pt's POC. PT will see pt twice a week x 4 weeks for strengthening, gait and transfer training, and fall prevention. Constance Ervin LPN [facility] 12-15-2024 Telephone encounter Note Call to Bhavna, notified her of message below from Provider, she verbalized understanding. Notes pt takes BP once daily, but will increase to bid. Bhavna did talk to pt about 1 hour ago and asked for a recheck of BP. Pt BP was 147/63. MARITZA Romo MA [facility] 12-15-2024 Miscellaneous Notes Call to Bhavna, notified her of message below from Provider, she verbalized understanding. Notes pt takes BP once daily, but will increase to bid. Bhavna did talk to pt about 1 hour ago and asked for a recheck of BP. Pt BP was 147/63. MARITZA Romo MA Patient needs to be checking her BLOOD PRESSURE AM and PM and recording BLOOD PRESSURE and pulse rates. Call office with readings next week. Bhavna calling from [facility] to report plan of care for patient and [facility] will visit patient 1 time a week for 4 weeks. Bhavna notes the following medications that are not on patient's medication list that patient currently is taking: Preservation Vitamins; Patient takes this twice a day Slow Iron Fe 45 mg; Patient takes this daily Bhavna notes that patient's blood pressure was 180/78. Patient had not taken morning medications yet. Patient was asymptomatic. Bhavna did notice that patient did have a burst blood vessel in her eye. She did not notice at the beginning of visit but by end patient's eye was bloodshot. Please review and Advise, Bhavna Arauz RN documented in this encounter [facility] 12-15-2024 Telephone encounter Note Patient needs to be checking her BLOOD PRESSURE AM and PM and recording BLOOD PRESSURE and pulse rates. Call office with readings next week. [facility] 12-15-2024 Telephone encounter Note Bhavna calling from [facility] to report plan of care for patient and [facility] will visit patient 1 time a week for 4 weeks. Bhavna notes the following medications that are not on patient's medication list that patient currently is taking: Preservation Vitamins; Patient takes this twice a day Slow Iron Fe 45 mg; Patient takes this daily Bhavna notes that patient's blood pressure was 180/78. Patient had not taken morning medications yet. Patient was asymptomatic. Bhavna did notice that patient did have a burst blood vessel in her eye. She did not notice at the beginning of visit but by end patient's eye was bloodshot. Please review and Advise, Bhavna Arauz RN [facility] 12-14-2024 Telephone encounter Note larissa informed Jacque Machuca MA [facility] 12-14-2024 Miscellaneous Notes larissa informed Jacque Machuca MA Yes Dr. Puga will follow. 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 Patient currently at [facility] for HTN. Call back for Larissa is [phone]. Amanda Pratt RN documented in this encounter [facility] 12-14-2024 Telephone encounter Note Yes Dr. Puga will follow. 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 Patient currently at [facility] for HTN. Call back for Larissa is [phone]. Amanda Pratt RN [facility] 12-14-2024 Discharge summary Note Date/Time December 14, 2024 12:17pm [facility] Medical Records Department [address] [place] [address] Discharge Summary 12/14/24 09 MR#: [id number] Acct: [id number] Name: MICHAEL MEIER Rep #:[id number] 1 : 1940 84 From: Radha Munoz DO PCP: Dr. Michael Puga DO Status:AD M IN Location: [place] [address] Providers Date of Admission: 12/03/24 Date of Discharge: 12/14/24 Primary Care Physician: Karen Johnson NP Reason For Visit: DEBILITY Diagnosis Discharge Diagnosis (1) Debility: Status: Acute Code(s): R53.81 - Other malaise (2) Generalized weakness: Status: Acute Code(s): R53.1 - Weakness (3) Disequilibrium: Status: Acute Code(s): R42 - Dizziness and giddiness Plan: Much improved at DC from rehab. I suspect this was due to tremors and de-conditioning and sleep deprivation. (4) Tremor: Status: Resolved Code(s): R25.1 - Tremor, unspecified Plan: Due to side effects of high dose Paxil. (5) Hyponatremia: Status: Acute Code(s): E87.1 - Hypo-osmolality and hyponatremia Plan: Lab consistent with SIADH. Suspect this is related to use of SSRI. Being discharged on salt tabs and fluid restriction........1,500 cc/day. Sodium is 130 at the time of DC from rehab. (6) Normochromic normocytic anemia: Status: Acute Code(s): D64.9 - Anemia, unspecified Plan: This is new. She has been taking Meloxicam and Prednisone. HGB is stable at 10.5 at the time of DC from rehab. Denies N/V/epigastric pain. She is taking Protonix chronically. (7) Moderate left ventricular hypertrophy: Status: Chronic Code(s): I51.7 - Cardiomegaly (8) Pulmonary hypertension: Status: Chronic Code(s): I27.20 - Pulmonary hypertension, unspecified Plan: TTE on 11/30/24 estimates the RV systolic pressure to be 65. (9) Tricuspid regurgitation: Status: Chronic Code(s): I07.1 - Rheumatic tricuspid insufficiency Qualifiers: Cardiac valve disease etiology: nonrheumatic Qualified Code(s): I36.1 -Nonrheumatic tricuspid (valve) insufficiency (10) Left atrial enlargement: Status: Chronic Code(s): I51.7 - Cardiomegaly (11) Morbid obesity with BMI of 40.0-44.9, adult: Status: Chronic Code(s): E66.01 - Morbid (severe) obesity due to excess calories; Z68.41 - Body mass index [BMI] 40.0-44.9, adult Plan: Gained weight on Prednisone.......being inactive likely contributed to this as well. 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 (14) Paroxysmal atrial fibrillation: Status: Chronic Code(s): I48.0 - Paroxysmal atrial fibrillation (15) Hypothyroidism: Status: Chronic Code(s): E03.9 - Hypothyroidism, unspecified Qualifiers: Hypothyroidism type: unspecified Qualified Code(s): E03.9 - Hypothyroidism, unspecified Plan: TSH on 11/29/2024 was 2.12. (16) Essential (primary) hypertension: Status: Chronic Code(s): I10 - Essential (primary) hypertension Plan: Hydralazine was increased to 75 mg TID while on rehab. Has been off Lasix and Aldactone. No edema with elevation and compression wraps. (17) Hyperlipidemia: Status: Chronic Code(s): E78.5 - Hyperlipidemia, unspecified Qualifiers: Hyperlipidemia type: pure hypercholesterolemia Qualified Code(s): E78.00 - Pure hypercholesterolemia, unspecified; E78.0 - Pure hypercholesterolemia (18) Heme positive stool: Status: Acute Code(s): R19.5 - Other fecal abnormalities Plan 1. DC home with [facility] PT/SW/SN, palliative, CCN. No DME needs. 2. F/U with Karen Johnson NP for primary care. She requested to change PCP. 3. Follow-up with Dr. Owen Alcala for obstructive sleep apnea/pulmonary hypertension 4. Follow-up with Anabel Horne NP for cardiology 5. She is now off prednisone (cortrosyn stim test showed normal adrenal function). 6. No longer taking Paxil or Ativan. 7. Has a new CPAP mask and knows she is to use CPAP ANYTIME she is sleeping.......even for naps. The mask she had been using had a big air leak and apparently , per sleep lab, the mask she was using was recalled a few years ago because it was found to interfere with PM function and Michael has a PM. 8. Sertraline to be tapered off over the next month. Would recheck a BMP off SSRI and if the sodium is normal trial discontinuing Salt tabs and fluid restriction. 9. Referred to [facility] for calf compression wraps with velcro. 10. Defer to cardiology whether to restart diuretics. Medications at Discharge Home Medications aspirin 81 mg tablet,delayed release (Adult Low Dose Aspirin) 81 mg PO QDAY [facility] #90 tabs 12/27/18 coenzyme Q10 100 mg capsule (Co Q-10) 100 mg PO DAILY supplement 01/23/20 rosuvastatin 10 mg tablet 10 mg PO DAILY cholesterol 01/23/20 sucralfate 100 mg/mL oral suspension 10 ml PO TID PRN digestion 11/25/21 cyclosporine 0.05 % eye drops in a dropperette (Restasis) 1 drp EACH EYE Q12H eye health 09/27/23 albuterol sulfate 90 mcg/actuation aerosol inhaler (ProAir HFA) 2 puff inhalation Q6H PRN shortness of breath or wheezing #6.7 grams 10/02/23 levothyroxine 50 mcg capsule 50 mcg PO QDAY Thyroid 01/25/24 fluticasone propionate 110 mcg/actuation HFA aerosol inhaler 1 inh inhalation Q12H SOB/Wheezing 04/30/24 vitamin B complex (Balanced B-50 tablet) 1 tab PO DAILY supplement 04/30/24 diltiazem HCl 240 mg capsule,extended release 24 hr 240 mg PO QHS heart #90 caps 05/15/24 amiodarone 200 mg tablet 200 mg PO DAILY heart #90 tabs 07/20/24 losartan 100 mg tablet 100 mg PO DAILY blood pressure #90 tabs 09/11/24 azelastine 0.05 % eye drops 1 drp ophthalmic (eye) BID PRN eye drops 11/02/24 omeprazole 20 mg capsule,delayed release 20 mg PO QDAY GERD 11/02/24 acetaminophen 500 mg tablet 1,000 mg (2 x 500 mg) PO Q6H PRN PRN Pain 1-10 Or Fever #90 tabs 12/13/24 gabapentin 100 mg capsule 100 mg PO QHS #30 caps 12/13/24 hydralazine 25 mg tablet 25 mg PO TID #90 tabs 12/13/24 hydralazine 50 mg tablet 75 mg (1.5 x 50 mg) PO TID #90 tabs 12/13/24 lidocaine 5 % topical patch 1 patch topical DAILY #30 ea 12/13/24 meloxicam 15 mg tablet 15 mg PO DAILY Joint pain #1 TAB 12/13/24 sertraline 25 mg tablet See Rx Instructions .Route .COMPLEX #42 tabs 12/13/24 sodium chloride 1,000 mg soluble tablet 1,000 mg PO BID #60 tabs 12/13/24 Hospital Course Operations None Procedures Transthoracic echo (Normal LV size. Left ventricular systolic function is normal. Moderate concentric left ventricular hypertrophy. The left ventricular ejection fraction is 60 %. Pulmonary artery systolic pressure is 65 mmHg. Moderate pulmonary hypertension. 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 Initial blood pressure in the emergency room was 229/78. A stat noncontrast CT brain showed no acute process. She could not have a MRI of the brain due to incompatibility with her pacemaker. She had a follow-up CT brain on 11/30/2024 and it showed no acute abnormalities. TTE on 11/29/24 showed moderate concentric left ventricular hypertrophy with normal left ventricular systolic function. EF was estimated at 60% and there were no regional wall motion abnormalities. The right ventricle is of normal size with normal systolic function. The left atrium was mildly enlarged and the right atrium was normal. PA systolic was estimated at 65 mmHg which is consistent with moderate pulmonary hypertension. There was 2+ TR. Significant lab in the hospital included a HGB of 10.6, down from 12.4 on 10/31/2024 and a sodium of 127 on 12/03/2024 which was down from 133 at admission to the hospital. A TSH was normal. Consult was obtained with neurology who had no acute recommendations other than PT/OT. She was seen by PT/OT and admission to acute rehab was recommended. She was transferred to the acute inpt rehab unit at [facility] on 12/03/24 for 3 hours of therapy daily to restore function/independence at or near her level prior to admission the the hospital. Serum sodium, serum and osmolality and urine osmolality were consistent with SIADH. I suspect the SIADH is due to high-dose Paxil at 40 mg daily. She had previously been taking 20 mg daily and the dose was increased to 40 mg due to complaints of chronic fatigue and lack of motivation. I suspect the chronic fatigue and lack of motivation were related to noncompliance with CPAP/chronic sleep deprivation rather than undertreated depression. The tremors were also suspected to be secondary to Paxil as this is a known side effect of Paxil. She had also been taking Prednisone.......but, was not sure how much she was taking. She was placed on Prednisone by palliative care........to help her breathing? Prednisone was held and a Cortrosyn stimulation test was done and this revealed normal adrenal function. Prednisone was discontinued. She had been taking Ativan 0.25 mg up to twice daily for anxiety. This was weaned off prior to DC from rehab. She has a known hx of GI bleed in the past and was taking Meloxicam and Prednisone at admission to the hospital. A hemoccult was obtained and was +. She was already taking Protonix 20 mg daily and she was asymptomatic so we continued this dose. HGB is stable at 10.5 at DC from rehab. This can be further evaluated as an OP. Paxil was discontinued. After a few days she was started on Sertraline 50 mg daily to prevent withdrawal sx. The Sertraline is going to be tapered off over the moth following DC from rehab. I hope that getting her off an SSRI will resolve the SIADH which I suspected is related to SSRI use. BUN/CREAT ratio at admission to rehab was 31.5 and Lasix and Spironolactone were placed on hold. PATRIA wraps were applied to the LE's and she kept her legs elevated while sitting in the recliner. At DC from rehab she has no edema in the ankles. Will defer to cardiology to restart diuretics if needed. She was encouraged to go to [facility] to purchase calf compression stockings with Velcro straps (for ease of application). She will elevate her legs when sitting in a chair and I encouraged her to sleep in bed at night so the legs could be close to the level of the heart to decrease edema. Michael had a large air leak around the current CPAP mask she was using. Sleep lab came over to see if they could help and actually the mask she has been using was recalled a few years ago because it was found to interfere with PM function. Michael has a PM for hx of SSS. She was given a new mask and it is working well at the time of DC from rehab. She is going to continue follow up with Dr. Alcala for JOSE and pulmonary HTN. Michael did very well in therapy. At the time of DC she is able to do 11 sit to stands in 30 seconds using her bilateral upper extremities to rise. She has completed the turn up and Go test in 17.7 seconds with a rollator walker at standby assist. She can ascend/descend two 6 inch steps with 1 handrail at contact-guard assist and 5 steps of various heights with 2 handrails at standby assist. She is also able to do a curb step with a rollator walker at contact-guard assist. She has ambulated 130 feet with an uplift rollator walker at mod I. She is mod I with eating, grooming, bathing she is independent with upper body dressing and standby assist for lower body dressing. She is supervision for tub/shower transfer. She is able to complete item she needs and has simulated doing laundry at supervision. Michael was discharged on 04/15/25 to home and will have HHC. She has no DME needs. She will follow up with Dr. Alcala, Anabel Horne, palliative care and Karen Johnson NP for primary care. Physical Exam Const alert and no apparent distress Constitutional Narrative: She has been using the new CPAP mask for the past 2 nights and she is much more alert today. General Appearance: cooperative; Negative for anxious HEENT normocephalic, head/scalp atraumatic and hearing grossly normal bilaterally Eyes PERRL, EOMs intact bilaterally, conjunctivae normal and no scleral icterus Eyes Narrative: No discharge from the eyes. Neck supple Chest Chest: symmetrical chest wall rise Resp normal respiratory effort and clear to auscultation bilaterally Resp Narrative: No conversational dyspnea Effort and Inspection: Negative for tachypneic Cardio regular rate, regular rhythm and no gallops Cardio Narrative: No ectopy GI normal to inspection, nondistended, normoactive bowel sounds, soft to palpation and non-tender GI Narrative: No guarding with palpation Bladder / Kidney Exam: no CVA tenderness Extremity no calf tenderness Extremity Narrative: PATRIA wraps are in place and she has no ankle edema. No pitting edema of the posterior thighs General Extremity: Negative for edema Skin General Skin Exam: Negative for jaundice Rashes: no rashes Neuro oriented x3, CN's II-XII intact bilaterally and moves all extremities Psych cooperative and affect normal Appearance: grossly normal, appropriate and well kempt; Negative for unkempt Attitude: calm Activity / Motor Behavior: appropriate eye contact Mood & Affect: Negative for depressed or anxious Weight / BMI Weight Weight: 246 lb 4 oz Body Mass Index (BMI) 41.0 ABG / Lab / Microbiology Data 12/07/24 07:19 12/13/24 05:49 Microbiology: Microbiology 12/05/24 11:58 Stool Stool Occult Blood (LOIS) - Final Occult Blood Positive D/C Instructions Weight Bearing Status: Full weight bearing Keep extremity elevated above heart level: Legs Additional Activity Instructions: Don't sit for longer than 1 hour without getting up and moving around for at least 5 minutes. do the exercises given to you by the therapists every day. You have to keep moving and exercising or you will lose the muscle strength, have more pain and not be able to move. Call your doctor if you observe: Fever of 101 or Higher, Shortness of breath, Dizziness, Fainting spells, Swelling in the ankles, Chest pain, Increased palpitations (irregular heartbeat), Calf discomfort, Uncontrolled pain and - (STROKE symptoms: facial droop, slurred speech, inability to get words out, weakness on 1 side of the body and not the other, numbness on 1 side of the body and not the other, inability to maintain your balance sitting or standing, vertigo. ) DC O2, CPAP, BIPAP Needs Home O2 Discharge instructions: No Pending Tests Upon Discharge: none Please Follow Up With: Karen Johnson, [employer] ATTEND[employer]-C When: you have an appt scheduled......it is listed later in this document. You will also need to follow up with cardiology (Anabel Horne) and with Dr. Alcala. Meaningful Use Info Meaningful Use Meaningful Use Diagnoses (Choose all that apply): None applicable Discharge Plan Admission Admit Date/Time: 12/03/24 16:09 Primary Reason for Your Visit: Debility due to generalized weakness and tremors. Attending Provider: Radha Munoz Primary Care Provider: Michael Puga Consulting Providers: Tavares Anthony Chi Instructions Additional Instructions / Restrictions: 1. I think the chronic fatigue and lack of motivation were due to not wearing CPAP and an improperly fitting mask rather than due to depression. The high dose of Paxil, 40 mg daily, caused the tremors and difficulty walking. Deconditioning also contributed to trouble walking. As we age if you do not keep moving/walking/exercising you get stiff and sore and then you do not want to move and you sit. Then you lose muscle strength and pretty soon you can't walk. A regular exercise program is critical in maintaining function and continuing to live independently as we age. It helps to have a friend to exercise with because you are more likely to show up because someone else is depending on you to show up and exercise. 2. Your sodium is low. 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 ADH is a hormone produced by the pituitary and it causes the absorption of excess water in the kidney. The excess water dilutes out the sodium. The problem really is not that you do not have enough sodium it is that you have too much free water in the body diluting the sodium out. I suspect the SIADH is related to Paxil......Paxil is an SSRI (serotonin reuptake inhibitor) and all medications in this class can cause SIADH. You are taking a SSRI called sertraline (also called Zoloft). We switched to Zoloft because it does not cause the tremors we see with Paxil. The Sertraline is going to be tapered off over the next month. 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 there are many other antidepressants if you need one BUT, it you are wearing the CPAP as directed with a good fitting mask you may not need and antidepressant. My hope is that if you are off an SSRI your sodium with normalize and you can get off the salt tabs. For now we need to continue the salt tabs and the fluid restriction. Do not drink more than 1,500 cc's a day of fluid. This is equivalent to 50 ounces. 3. You have gained strength while on rehab and you are doing well ambulating with the walker. I think you will do great at home. You are also much more alert than you were at admission to rehab and you have no tremors. Good for you! 4. Your BP was not well controlled at admission to rehab and we had to change the dosages. You were taking Hydralazine 50 mg 2-3 times a day and you will now be taking 75 mg 3 times a day. The 50 mg tabs are NOT scored so they are very difficult to break in half. I gave you prescriptions for 50 mg tabs and 25 mg tabs. You will take one 50 mg tab and one 25 mg tab 3 times a day for a total of 75 mg 3 times a day. 5. You are no longer going to be taking Prednisone. You are also off Ativan and doing well. Ativan is a drug that can be addictive. As we get older this medication is associated with confusion, drowsiness and dysequilibrium leading to increased falls. If you are feeling anxious or depressed definitely talk to Karen about this. There are many relaxation techniques that can be utilized to help control anxiety.........breathing exercises and yoga are 2 of these techniques. 6. We have NOT had you on Lasix or Spironolactone since you arrived on rehab. You do not have any significant swelling. The compression wraps on the legs and elevation of your legs when sitting in a chair are controlling the swelling without diuretics. Getting rid of the Prednisone also helps decrease swelling.........Prednisone cause fluid retention. It is always best to sleep in a bed at night because the legs are more elevated above the level of the heart and usually the swelling (if there is any) is gone in the AM. 7. You are anemic and this is new for you. You had blood in the stool when we checked it. Both Meloxicam and Prednisone can cause ulcers in the stomach. There are many reasons why people can have blood in the stool. You nade to follow up with a GI (gastrointestinal) doctor to have a look in the stomach and intestine if the anemia persists. 8. It has been a pleasure getting to know you Michael. I am very happy with the progress you have made on rehab. If you have any questions after you leave rehab please do not hesitate to call me!. OFFICE: [phone] CELL: [phone] NURSES STATION ON REHAB: [phone] Discharge Orders/Prescriptions Prescriptions: New acetaminophen 500 mg Tablet 1,000 mg PO Q6H PRN PRN (Reason: Pain 1-10 Or Fever) Qty: 90 0RF hydralazine 50 mg Tablet 75 mg PO TID Qty: 90 0RF Rx Instructions: you will take 1 50 mg tablet and 1 25 mg tablet 3 times a day to equal 75 mg 3 times a day gabapentin 100 mg Capsule 100 mg PO QHS Qty: 30 0RF lidocaine 5 % Adhesive Patch,Medicated 1 patch topical DAILY Qty: 30 0RF Protocol: *Topical Application Instructions APPLICATION INSTRUCTIONS: left outer hip Rx Instructions: remove the patch 12 H after it is applied. sodium chloride 1,000 mg Tablet,Soluble 1,000 mg PO BID Qty: 60 0RF sertraline 25 mg tablet See Rx Instructions .ROUTE .COMPLEX Qty: 42 0RF Rx Instructions: take 2 tabs at bedtime for 2 weeks and then decrease to 1 tab at bedtime for 2 weeks then discontinue hydralazine 25 mg tablet 25 mg PO TID Qty: 90 0RF Rx Instructions: take 1 50 mg tab and 1 25 mg tab 3 times a day for a total of 75 mg 3 times a day. Continued aspirin [Adult Low Dose Aspirin] 81 [...] mg capsule,delayed release(DR/EC) 20 mg PO QDAY cyclosporine [Restasis] 0.05 % dropperette 1 drp EACH EYE Q12H albuterol sulfate [ProAir HFA] 90 mcg/actuation HFA aerosol inhaler 2 puff inhalation Q6H PRN (Reason: shortness of breath or wheezing) Qty: 6.7 0RF vitamin B complex [Balanced B-50] Tablet 1 tab PO DAILY fluticasone propionate 110 mcg/actuation HFA aerosol inhaler 1 inh inhalation Q12H azelastine 0.05 % drops 1 drp ophthalmic (eye) BID PRN (Reason: eye drops) meloxicam 15 mg tablet 15 mg PO DAILY Qty: 1 0RF Rx Instructions: Take this with food. diltiazem HCl 240 mg capsule,extended release 24hr 240 mg PO QHS Qty: 90 3RF amiodarone 200 mg tablet 200 mg PO DAILY Qty: 90 3RF losartan 100 mg tablet 100 mg PO DAILY Qty: 90 3RF Discontinued spironolactone 25 mg tablet 25 mg PO DAILY Qty: 30 11RF paroxetine HCl 40 mg tablet 40 mg PO QDAY lorazepam 0.5 MG tablet 0.5 mg PO BID PRN PRN (Reason: Anxiety) Qty: 6 0RF gabapentin 100 mg capsule 300 mg PO QHS Qty: 12 0RF Patient Comments: per pt to start taking 300mg tonight per pcp instruction. hydralazine 50 mg Tablet 50 mg PO TID Qty: 0 0RF prednisone 10 mg tablet 10 mg PO DAILY furosemide 20 mg tablet 20 mg PO QDAY Referrals / Follow Up: Karen Johnson Marilee, [employer] ATTENDANT-C [[facility]] - 12/20/24 10:00 am Disposition Disposition (needs filled in before D/C Order can be placed): Home Health Service Charges/Coding Visit Charges Inpatient E&M: 36120 Init Hosp L3 12/14/24 1040 <Electronically signed by Radha Munoz DO> Cosigner Signature (if applicable): CC: Marilee Johnson; Dr. Michael Puga DO; Dr. Radha Munoz DO; Dr. Owen Alcala MD; NIDA Katz~ Signed ADDENDUM by Dr. Radha Munoz DO on 12/14/24 at 1217 Addendum Bridgett told me just before leaving today that she has been having heartburn the past 2 night. No N/V/abd pain. Will increase the Protonix to 20 mg BID. RX sent to pharmacy. 12/14/24 1217<Electronically signed by Radha Munoz DO> Cosigner Signature (if applicable): cc: [facility] MIKE Johnson; Dr. Michael Puga DO; Dr. Radha Munoz DO; Dr. Owen Alcala MD; NIDA Katz ~* Signed [facility] Work Phone: [phone] Discharge summary [facility] Medical Records Department [address] [place] [address] Discharge Summary 12/14/24905 MR#: [id number] Acct: [id number] Name: MICHAEL MEIER Rep #:[id number] 1 : 1940 84 From: Radha Munoz DO PCP: Dr. Michael Puga DO Status:AD M IN Location: [address] Providers Date of Admission: 12/03/24 Date of Discharge: 12/14/24 Primary Care Physician: Karen Johnson NP Reason For Visit: DEBILITY Diagnosis Discharge Diagnosis (1) Debility: Status: Acute Code(s): R53.81 - Other malaise (2) Generalized weakness: Status: Acute Code(s): R53.1 - Weakness (3) Disequilibrium: Status: Acute Code(s): R42 - Dizziness and giddiness Plan: Much improved at DC from rehab. I suspect this was due to tremors and de- conditioning and sleep deprivation. (4) Tremor: Status: Resolved Code(s): R25.1 - Tremor, unspecified Plan: Due to side effects of high dose Paxil. (5) Hyponatremia: Status: Acute Code(s): E87.1 - Hypo-osmolality and hyponatremia Plan: Lab consistent with SIADH. Suspect this is related to use of SSRI. Being discharged on salt tabs and fluid restriction........1,500 cc/day. Sodium is 130 at the time of DC from rehab. (6) Normochromic normocytic anemia: Status: Acute Code(s): D64.9 - Anemia, unspecified Plan: This is new. She has been taking Meloxicam and Prednisone. HGB is stable at 10.5 at the time of DC from rehab. Denies N/V/epigastric pain. She is taking Protonix chronically. (7) Moderate left ventricular hypertrophy: Status: Chronic Code(s): I51.7 - Cardiomegaly (8) Pulmonary hypertension: Status: Chronic Code(s): I27.20 - Pulmonary hypertension, unspecified Plan: TTE on 11/30/24 estimates the RV systolic pressure to be 65. (9) Tricuspid regurgitation: Status: Chronic Code(s): I07.1 - Rheumatic tricuspid insufficiency Qualifiers: Cardiac valve disease etiology: nonrheumatic Qualified Code(s): I36.1 - Nonrheumatic tricuspid (valve) insufficiency (10) Left atrial enlargement: Status: Chronic Code(s): I51.7 - Cardiomegaly (11) Morbid obesity with BMI of 40.0-44.9, adult: Status: Chronic Code(s): E66.01 - Morbid (severe) obesity due to excess calories; Z68.41 - Body mass index [BMI] 40.0-44.9, adult Plan: Gained weight on Prednisone.......being inactive likely contributed to this as well. 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 (14) Paroxysmal atrial fibrillation: Status: Chronic Code(s): I48.0 - Paroxysmal atrial fibrillation (15) Hypothyroidism: Status: Chronic Code(s): E03.9 - Hypothyroidism, unspecified Qualifiers: Hypothyroidism type: unspecified Qualified Code(s): E03.9 - Hypothyroidism, unspecified Plan: TSH on 11/29/2024 was 2.12. (16) Essential (primary) hypertension: Status: Chronic Code(s): I10 - Essential (primary) hypertension Plan: Hydralazine was increased to 75 mg TID while on rehab. Has been off Lasix and Aldactone. No edema with elevation and compression wraps. (17) Hyperlipidemia: Status: Chronic Code(s): E78.5 - Hyperlipidemia, unspecified Qualifiers: Hyperlipidemia type: pure hypercholesterolemia Qualified Code(s): E78.00 - Pure hypercholesterolemia, unspecified; E78.0 - Pure hypercholesterolemia (18) Heme positive stool: Status: Acute Code(s): R19.5 - Other fecal abnormalities Plan 1. DC home with [facility] PT/SW/SN, palliative, CCN. No DME needs. 2. F/U with Karen Johnson NP for primary care. She requested to change PCP. 3. Follow-up with Dr. Owen Alcala for obstructive sleep apnea/pulmonary hypertension 4. Follow-up with Anabel Horne NP for cardiology 5. She is now off prednisone (cortrosyn stim test showed normal adrenal function). 6. No longer taking Paxil or Ativan. 7. Has a new CPAP mask and knows she is to use CPAP ANYTIME she is sleeping.......even for naps. The mask she had been using had a big air leak and apparently , per sleep lab, the mask she was using was recalled a few years ago because it was found to interfere with PM function and Michael has a PM. 8. Sertraline to be tapered off over the next month. Would recheck a BMP off SSRI and if the sodiumis normal trial discontinuing Salt tabs and fluid restriction. 9. Referred to [facility] for calf compression wraps with velcro. 10. Defer to cardiology whether to restart diuretics. Medications at Discharge Home Medications aspirin 81 mg tablet,delayed release (Adult Low Dose Aspirin) 81 mg PO QDAY heart health #90 tabs 12/27/18 coenzyme Q10 100 mg capsule (Co Q-10) 100 mg PO DAILY supplement 01/23/20 rosuvastatin 10 mg tablet 10 mg PO DAILY cholesterol 01/23/20 sucralfate 100 mg/mL oral suspension 10 ml PO TID PRN digestion 11/25/21 cyclosporine 0.05 % eye drops in a dropperette (Restasis) 1 drp EACH EYE Q12H eye health 09/27/23 albuterol sulfate 90 mcg/actuation aerosol inhaler (ProAir HFA) 2 puff inhalation Q6H PRN shortnessof breath or wheezing #6.7 grams 10/02/23 levothyroxine 50 mcg capsule 50 mcg PO QDAY Thyroid 01/25/24 fluticasone propionate 110 mcg/actuation HFA aerosol inhaler 1 inh inhalation Q12H SOB/Wheezing 04/30/24 vitamin B complex (Balanced B-50 tablet) 1 tab PO DAILY supplement 04/30/24 diltiazem HCl 240 mg capsule,extended release 24 hr 240 mg PO QHS heart #90 caps 05/15/24 amiodarone 200 mg tablet 200 mg PO DAILY heart #90 tabs 07/20/24 losartan 100 mg tablet 100 mg PO DAILY blood pressure #90 tabs 09/11/24 azelastine 0.05 % eye drops 1 drp ophthalmic (eye) BID PRN eye drops 11/02/24 omeprazole 20 mg capsule,delayed release 20 mg PO QDAY GERD 11/02/24 acetaminophen 500 mg tablet 1,000 mg (2 x 500 mg) PO Q6H PRN PRN Pain 1-10 Or Fever #90 tabs 12/13/24 gabapentin 100 mg capsule 100 mg PO QHS #30 caps 12/13/24 hydralazine 25 mg tablet 25 mg PO TID #90 tabs 12/13/24 hydralazine 50 mg tablet 75 mg (1.5 x 50 mg) PO TID #90 tabs 12/13/24 lidocaine 5 % topical patch 1 patch topical DAILY #30 ea 12/13/24 meloxicam 15 mg tablet 15 mg PO DAILY Joint pain #1 TAB 12/13/24 sertraline 25 mg tablet See Rx Instructions .Route .COMPLEX #42 tabs 12/13/24 sodium chloride 1,000 mg soluble tablet 1,000 mg PO BID #60 tabs 12/13/24 Hospital Course Operations None Procedures Transthoracic echo (Normal LV size. Left ventricular systolic function is normal. Moderate concentric left ventricular hypertrophy. The left ventricular ejection fraction is 60 %. Pulmonary artery systolic pressure is 65 mmHg. Moderate pulmonary hypertension. 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 Initial blood pressure in the emergency room was 229/78. A stat noncontrast CT brain showed no acute process. She could not have a MRI of the brain due to incompatibility with her pacemaker. She had a follow-up CT brain on 11/30/2024 and it showed no acute abnormalities. TTEon 11/29/24 showed moderate concentric left ventricular hypertrophy with normal left ventricular systolic function. EF was estimated at 60% and there were no regional wall motion abnormalities. The right ventricle is of normal size with normal systolic function. The left atrium was mildly enlarged and the right atrium was normal. PA systolic was estimated at 65 mmHg which is consistent with moderate pulmonary hypertension. There was 2+ TR. Significant lab in the hospital included a HGB of 10.6, down from 12.4 on 10/31/2024 and a sodium of 127 on 12/03/2024 which was down from 133 at admission to the hospital. A TSH was normal. Consult was obtained with neurology who had no acute recommendations other than PT/OT. She was seen by PT/OT and admission to acute rehab was recommended. She was transferred to the acute inpt rehab unit at [facility] on 12/03/24 for 3 hours of therapy daily to restore function/independence at or near her level prior to admission the the hospital. Serum sodium, serum and osmolality and urine osmolality were consistent with SIADH. I suspect the SIADH is due to high-dose Paxil at 40 mg daily. She had previously been taking 20 mg daily and the dose was increased to 40 mg due to complaints of chronic fatigue and lack of motivation. I suspect thechronic fatigue and lack of motivation were related to noncompliance with CPAP/chronic sleep deprivation rather than undertreated depression. The tremors were also suspected to be secondary to Paxil as this is a known side effect of Paxil. She had also been taking Prednisone.......but, was not surehow much she was taking. She was placed on Prednisone by palliative care........to help her breathing? Prednisone was held and a Cortrosyn stimulation test was done and this revealed normal adrenal function. Prednisone was discontinued. She had been taking Ativan 0.25 mg up to twice daily for anxiety. This was weaned off prior to DC from rehab. She has a known hx of GI bleed in the past and was taking Meloxicam and Prednisone at admission to the hospital. A hemoccult was obtained and was +. She was already taking Protonix 20 mg daily and she was asymptomatic so we continued this dose. HGB is stable at 10.5 at DC from rehab. This can be further evaluated as an OP. Paxil was discontinued. After a few days she was started on Sertraline 50 mg daily to prevent withdrawal sx. The Sertraline is going to be tapered off over the moth following DC from rehab. I hope that getting her off an SSRI will resolve the SIADH which I suspected is related to SSRI use. BUN/CREAT ratio at admission to rehab was 31.5 and Lasix and Spironolactone were placed on hold. PATRIA wraps were applied to the LE's and she kept her legs elevated while sitting in the recliner. At [facility] rehab she has no edema in the ankles. Will defer to cardiology to restart diuretics if needed.She was encouraged to go to [facility] to purchase calf compression stockings with Velcro straps (for ease of application). She will elevate her legs when sitting in a chair and I encouragedher to sleep in bed at night so the legs could be close to the level of the heart to decrease edema. Michael had a large air leak around the current CPAP mask she was using. Sleep lab came over to see if they could help and actually the mask she has been using was recalled a few years ago because it was found to interfere with PM function. Michael has a PM for hx of SSS. She was given a new mask and it is working well at the time of DC from rehab. She is going to continue follow up with Dr. Alcala for JOSE and pulmonary HTN. Michael did very well in therapy. At the time of DC she is able to do 11 sit to stands in 30 seconds using her bilateral upper extremities to rise. She has completed the turn up and Go test in 17.7 seconds with a rollator walker at standby assist. She can ascend/descend two 6 inch steps with 1 handrail at contact-guard assist and 5 steps of various heights with 2 handrails at standby assist. She isalso able to do a curb step with a rollator walker at contact- guard assist. She has ambulated 130 feet with an uplift rollator walker at mod I. She is mod I with eating, grooming, bathing she is independent with upper body dressing and standby assist for lower body dressing. She is supervision for tub/shower transfer. She is able to complete item she needs and has simulated doing laundry at supervision. Michael was discharged on 04/15/25 to home and will have C. She has no DME needs. She will follow up with Dr. Alcala, Anabel Horne, palliative care and Karen Johnson NP for primary care. Physical Exam Const alert and no apparent distress Constitutional Narrative: She has been using the new CPAP mask for the past 2 nights and she is much more alert today. General Appearance: cooperative; Negative for anxious HEENT normocephalic, head/scalp atraumatic and hearing grossly normal bilaterally Eyes PERRL, EOMs intact bilaterally, conjunctivae normal and no scleral icterus Eyes Narrative: No discharge from the eyes. Neck supple Chest Chest: symmetrical chest wall rise Resp normal respiratory effort and clear to auscultation bilaterally Resp Narrative: No conversational dyspnea Effort and Inspection: Negative for tachypneic Cardio regular rate, regular rhythm and no gallops Cardio Narrative: No ectopy GI normal to inspection, nondistended, normoactive bowel sounds, soft to palpation and non-tender GI Narrative: No guarding with palpation Bladder / Kidney Exam: no CVA tenderness Extremity no calf tenderness Extremity Narrative: PATRIA wraps are in place and she has no ankle edema. No pitting edema of the posterior thighs General Extremity: Negative for edema Skin General Skin Exam: Negative for jaundice Rashes: no rashes Neuro oriented x3, CN's II-XII intact bilaterally and moves all extremities Psych cooperative and affect normal Appearance: grossly normal, appropriate and well kempt; Negative for unkempt Attitude: calm Activity / Motor Behavior: appropriate eye contact Mood & Affect: Negative for depressed or anxious Weight / BMI Weight Weight: 246 lb 4 oz Body Mass Index (BMI) 41.0 ABG / Lab / Microbiology Data 12/07/24 07:19 12/13/24 05:49 Microbiology: Microbiology 12/05/24 11:58 Stool Stool Occult Blood (LOIS) - Final Occult Blood Positive D/C Instructions Weight Bearing Status: Full weight bearing Keep extremity elevated above heart level: Legs Additional Activity Instructions: Don't sit for longer than 1 hour without getting up and moving around for at least 5 minutes. do the exercises given to you by the therapists every day. You have to keep moving and exercising or you will lose the muscle strength, have more pain and not be able to move. Call your doctor if you observe: Fever of 101 or Higher, Shortness of breath, Dizziness, Fainting spells, Swelling in the ankles, Chest pain, Increased palpitations (irregular heartbeat), Calf discomfort, Uncontrolled pain and - (STROKE symptoms: facial droop, slurred speech, inability to get wordsout, weakness on 1 side of the body and not the other, numbness on 1 side of the body and not the other, inability to maintain your balance sitting or standing, vertigo. ) DC O2, CPAP, BIPAP Needs Home O2 Discharge instructions: No Pending Tests Upon Discharge: none Please Follow Up With: Karen Johnson Marilee, [employer] ATTENDANT-C When: you have an appt scheduled......it is listed later in this document. You will also need to follow up with cardiology (Anabel Horne) and with Dr. Alcala. Meaningful Use Info Meaningful Use Meaningful Use Diagnoses (Choose all that apply): None applicable Discharge Plan Admission Admit Date/Time: 12/03/24 16:09 Primary Reason for Your Visit: Debility due to generalized weakness and tremors. Attending Provider: Radha Munoz Primary Care Provider: Michael Puga Consulting Providers: Tavares Anthony Chi Instructions Additional Instructions / Restrictions: 1. I think the chronic fatigue and lack of motivation were due to not wearing CPAP and an improperly fitting mask rather than due to depression. The high dose of Paxil, 40 mg daily, caused the tremors and difficulty walking. Deconditioning also contributed to trouble walking. As we age if you do not keep moving/walking/exercising you get stiff and sore and then you do not want to move and you sit. Then you lose muscle strength and pretty soon you can't walk. A regular exercise program is critical in maintaining function and continuing to live independently as we age. It helps to have a friendto exercise with because you are more likely to show up because someone else is depending on you toshow up and exercise. 2. Your sodium is low. 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 ADH is a hormone produced by the pituitary and it causes the absorption of excess water in the kidney. The excess water dilutes out the sodium. The problem really is not that you do nothave enough sodium it is that you have too much free water in the body diluting the sodium out. I suspect the SIADH is related to Paxil......Paxil is an SSRI (serotonin reuptake inhibitor) and all medications in this class can cause SIADH. You are taking a SSRI called sertraline (also called Zoloft). We switched to Zoloft because it does not cause the tremors we see with Paxil. The Sertraline is going to be tapered off over the next month. You can not suddenly stop an SSRI after you have been taking it halfway because you will have withdrawal. there are many other antidepressants if you need one BUT, it you are wearing the CPAP as directed with a good fitting mask you may not need and antidepressant. My hope is that if you are off an SSRI your sodium with normalize and you can get off th e salt tabs. For now we need to continue the salt tabs and the fluid restriction. Do not drink morethan 1,500 cc's a day of fluid. This is equivalent to 50 ounces. 3. You have gained strength while on rehab and you are doing well ambulating with the walker. I think you will do great at home. You are also much more alert than you were at admission to rehab and you have no tremors. Good for you! 4. Your BP was not well controlled at admission to rehab and we had to change the dosages. You weretaking Hydralazine 50 mg 2-3 times a day and you will now be taking 75 mg 3 times a day. The 50 mg tabs are NOT scored so they are very difficult to break in half. I gave you prescriptions for 50 mg tabs and 25 mg tabs. You will take one 50 mg tab and one 25 mg tab 3 times a day for a total of 75 mg 3 times a day. 5. You are no longer going to be taking Prednisone. You are also off Ativan and doing well. Ativan is a drug that can be addictive. As we get older this medication is associated with confusion, drowsiness and dysequilibrium leading to increased falls. If you are feeling anxious or de pressed definitely talk to Karen about this. There are many relaxation techniques that can be utilized to help control anxiety.........breathing exercises and yoga are 2 of these techniques. 6. We have NOT had you on Lasix or Spironolactone since you arrived on rehab. You do not have any significant swelling. The compression wraps on the legs and elevation of your legs when sitting in a chair are controlling the swelling without diuretics. Getting rid of the Prednisone also helps decrease swelling.........Prednisone cause fluid retention. It is always best to sleep in a bed at night because the legs are more elevated above the level of the heart and usually the swelling (if there is any) is gone in the AM. 7. You are anemic and this is new for you. You had blood in the stool when we checked it. Both Meloxicam and Prednisone can cause ulcers in the stomach. There are many reasons why people can have blood in the stool. You nade to follow up with a GI (gastrointestinal) doctor to have a look in the stomach and intestine if the anemia persists. 8. It has been a pleasure getting to know you Michael. I am very happy with the progress you have made on rehab. If you have any questions after you leave rehab please do not hesitate to call me!. OFFICE: [phone] CELL: [phone] NURSES STATION ON REHAB: [phone] Discharge Orders/Prescriptions Prescriptions: New acetaminophen 500 mg Tablet 1,000 mg PO Q6H PRN PRN (Reason: Pain 1-10 Or Fever) Qty: 90 0RF hydralazine 50 mg Tablet 75 mg PO TID Qty: 90 0RF Rx Instructions: you will take 1 50 mg tablet and 1 25 mg tablet 3 times a day to equal 75 mg 3 times a day gabapentin 100 mg Capsule 100 mg PO QHS Qty: 30 0RF lidocaine 5 % Adhesive Patch,Medicated 1 patch topical DAILY Qty: 30 0RF Protocol: *Topical Application Instructions APPLICATION INSTRUCTIONS: left outer hip Rx Instructions: remove the patch 12 H after it is applied. sodium chloride 1,000 mg Tablet,Soluble 1,000 mg PO BID Qty: 60 0RF sertraline 25 mg tablet See Rx Instructions .ROUTE .COMPLEX Qty: 42 0RF Rx Instructions: take 2 tabs at bedtime for 2 weeks and then decrease to 1 tab at bedtime for 2 weeks then discontinue hydralazine 25 mg tablet 25 mg PO TID Qty: 90 0RF Rx Instructions: take 1 50 mg tab and 1 25 mg tab 3 times a day for a total of 75 mg 3 times a day. Continued aspirin [Adult Low Dose Aspirin] 81 [...] mg capsule,delayed release(DR/EC) 20 mg PO QDAY cyclosporine [Restasis] 0.05 % dropperette 1 drp EACH EYE Q12H albuterol sulfate [ProAir HFA] 90 mcg/actuation HFA aerosol inhaler 2 puff inhalation Q6H PRN (Reason: shortness of breath or wheezing) Qty: 6.7 0RF vitamin B complex [Balanced B-50] Tablet 1 tab PO DAILY fluticasone propionate 110 mcg/actuation HFA aerosol inhaler 1 inh inhalation Q12H azelastine 0.05 % drops 1 drp ophthalmic (eye) BID PRN (Reason: eye drops) meloxicam 15 mg tablet 15 mg PO DAILY Qty: 1 0RF Rx Instructions: Take this with food. diltiazem HCl 240 mg capsule,extended release 24hr 240 mg PO QHS Qty: 90 3RF amiodarone 200 mg tablet 200 mg PO DAILY Qty: 90 3RF losartan 100 mg tablet 100 mg PO DAILY Qty: 90 3RF Discontinued spironolactone 25 mg tablet 25 mg PO DAILY Qty: 30 11RF paroxetine HCl 40 mg tablet 40 mg PO QDAY lorazepam 0.5 MG tablet 0.5 mg PO BID PRN PRN (Reason: Anxiety) Qty: 6 0RF gabapentin 100 mg capsule 300 mg PO QHS Qty: 12 0RF Patient Comments: per pt to start taking 300mg tonight per pcp instruction. hydralazine 50 mg Tablet 50 mg PO TID Qty: 0 0RF prednisone 10 mg tablet 10 mg PO DAILY furosemide 20 mg tablet 20 mg PO QDAY Referrals / Follow Up: Karen Johnson, [employer] ATTENDANT-C [[facility]] - 12/20/24 10:00 am Disposition Disposition (needs filled in before D/C Order can be placed): Home Health Service Charges/Coding Visit Charges Inpatient E&M: 70450 Init Hosp L3 12/14/24 1040 Cosigner Signature (if applicable): CC: JACOBO [employer] ATTENDANT-C Karen Johnson; Dr. Michael Puga DO; Dr. Radha Munoz DO; Dr. Owen Alcala MD; NIDA Katz~ Signed ADDENDUM by Dr. Radha Munoz DO on 12/14/24 at 1217 Addendum Bridgett told me just before leaving today that she has been having heartburn the past 2 night. No N/V/abd pain. Will increase the Protonix to 20 mg BID. RX sent to pharmacy. 12/14/24 1217 Cosigner Signature (if applicable): cc: JACOBO [employer] ATTENDANT-C Karen Johnson; Dr. Michael Puga DO; Dr. Radha Munoz DO; Dr. Owen Alcala MD; NIDA Katz ~* Signed [facility]08-14-2025 Discharge summary Author Radha Munoz [facility] Note Date/Time December 14, 2024 8: 53am [facility] Medical Records Department [address] [place] [address] Instructions for Home/Discharge Instructions 12/13/24 1208 MR#: [id number] Acct: [id number] Name: MICHAEL MEIER Rep #:[id number] 1 : 1940 84 From: Radha Munoz DO PCP: Dr. Michael Puga, DO Status:AD M IN Discharge Instructions DC O2, CPAP, BIPAP needs Home O2 Discharge instructions: No Dressing / Incision Discharge Activity: May Shower and Use Walker Weight Bearing Status: Full weight bearing Keep extremity elevated above heart level: Legs Additional Activity Instructions:: Don't sit for longer than 1 hour without getting up and moving around for at least 5 minutes. do the exercises given toyou by the therapists every day. You have to keep moving and exercising or you will lose the muscle strength, have more pain and not be able to move. Dressing / Incision Call your doctor if you observe: Fever of 101 or Higher, Shortness of breath, Dizziness, Fainting spells, Swelling in the ankles, Chest pain, Increased palpitations (irregular heartbeat), Calf discomfort, Uncontrolled pain and - (STROKE symptoms: facial droop, slurred speech, inability to get words out, weakness on 1 side of the body and not the other, numbness on 1 side of the bodyand not the other, inability to maintain your balance sitting or standing, vertigo. ) Follow Up Care Please Follow Up With: Karen Johnson, [employer] ATTENDANT-C When: you have an appt scheduled......it is listed later in this document. You will also need to follow up with cardiology (Anabel Horne) and with Dr. Alcala. Test Results: Test results from this visit will be discussed in further detail at your follow- up appointment, if applicable. Pending Tests Upon Discharge: none Discharge Plan Admission Admit Date/Time: 12/03/24 16:09 Primary Reason for Your Visit: Debility due to generalized weakness and tremors. Attending Provider: Radha Munoz Primary Care Provider: Michael Puga Consulting Providers: Tavares Anthony Chi Instructions Additional Instructions / Restrictions: 1. I think the chronic fatigue and lack of motivation were due to not wearing CPAP and an improperly fitting mask rather than due to depression. The high dose of Paxil, 40 mg daily, caused the tremors and difficulty walking. Deconditioning also contributed to trouble walking. As we age if you do not keep moving/walking/exercising you get stiff and sore and then you do not want to move and you sit. Then you lose muscle strength and pretty soon you can't walk. A regular exercise program is critical in maintaining function and continuing to live independently as we age. It helps to have a friend to exercise with because you are more likely to show up because someone else is depending on you to show up and exercise. 2. Your sodium is low. 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 ADH is a hormone produced by the pituitary and it causes the absorption of excess water in the kidney. The excess water dilutes out the sodium. The problem really is not that you do not have enough sodium it is that you have too much free water in the body diluting the sodium out. I suspect the SIADH is related to Paxil......Paxil is an SSRI (serotonin reuptake inhibitor) and all medications in this class can cause SIADH. You are taking a SSRI called sertraline (also called Zoloft). We switched to Zoloft because it does not cause the tremors we see with Paxil. TheSertraline is going to be tapered off over the next month. You can not suddenlystop an SSRI after you have been taking it [employer] because you will have withdrawal. there are many other antidepressants if you need one BUT, it you are wearing the CPAP as directed with a good fitting mask you may not need and antidepressant. My hope is that if you are off an SSRI your sodium with normalize and you can get off the salt tabs. For now we need to continue the salt tabs and the fluid restriction. Do not drink more than 1,500 cc's a day offluid. This is equivalent to 50 ounces. 3. You have gained strength while on rehab and you are doing well ambulating with the walker. I think you will do great at home. You are also much more alert than you were at admission to rehab and you have no tremors. Good for you! 4. Your BP was not well controlled at admission to rehab and we had to change the dosages. You were taking Hydralazine 50 mg 2-3 times a day and you will nowbe taking 75 mg 3 times a day. The 50 mg tabs are NOT scored so they are very difficult to break in half. I gave you prescriptions for 50 mg tabs and 25 mg tabs. You will take one 50 mg tab and one 25 mg tab 3 times a day for a total of 75 mg 3 times a day. 5. You are no longer going to be taking Prednisone. You are also off Ativan and doing well. Ativan is a drug that can be addictive. As we get older this medication is associated with confusion, drowsiness and dysequilibrium leading to increased falls. If you are feeling anxious or depressed definitely talk to Karen about this. There are many relaxation techniques that can be utilized to help control anxiety.........breathing exercises and yoga are 2 of these techniques. 6. We have NOT had you on Lasix or Spironolactone since you arrived on rehab. You do not have any significant swelling. The compression wraps on the legs and elevation of your legs when sitting in a chair are controlling the swelling without diuretics. Getting rid of the Prednisone also helps decrease swelling.........Prednisone cause fluid retention. It is always best to sleep in a bed at night because the legs are more elevated above the level of the heart and usually the swelling (if there is any) is gone in the AM. 7. You are anemic and this is new for you. You had blood in the stool when we checked it. Both Meloxicam and Prednisone can cause ulcers in the stomach. There are many reasons why people can have blood in the stool. You nade to follow up with a GI (gastrointestinal) doctor to have a look in the stomach and intestine if the anemia persists. 8. It has been a pleasure getting to know you Michael. I am very happy with the progress you have made on rehab. If you have any questions after you leave rehab please do not hesitate to call me!. OFFICE: [phone] CELL: [phone] NURSES STATION ON REHAB: [phone] Discharge Orders/Prescriptions Prescriptions: New acetaminophen 500 mg Tablet 1,000 mg PO Q6H PRN PRN (Reason: Pain 1-10 Or Fever) Qty: 90 0RF hydralazine 50 mg Tablet 75 mg PO TID Qty: 90 0RF Rx Instructions: you will take 1 50 mg tablet and 1 25 mg tablet 3 times a day to equal 75 mg 3 times a day gabapentin 100 mg Capsule 100 mg PO QHS Qty: 30 0RF lidocaine 5 % Adhesive Patch,Medicated 1 patch topical DAILY Qty: 30 0RF Protocol: *Topical Application Instructions APPLICATION INSTRUCTIONS: left outer hip Rx Instructions: remove the patch 12 H after it is applied. sodium chloride 1,000 mg Tablet,Soluble 1,000 mg PO BID Qty: 60 0RF sertraline 25 mg tablet See Rx Instructions .ROUTE .COMPLEX Qty: 42 0RF Rx Instructions: take 2 tabs at bedtime for 2 weeks and then decrease to 1 tab at bedtime for 2 weeks then discontinue hydralazine 25 mg tablet 25 mg PO TID Qty: 90 0RF Rx Instructions: take 1 50 mg tab and 1 25 mg tab 3 times a day for a total of 75 mg 3 times aday. Continued aspirin [Adult Low Dose Aspirin] 81 [...] mg capsule,delayed release(DR/EC) 20 mg PO QDAY cyclosporine [Restasis] 0.05 % dropperette 1 drp EACH EYE Q12H albuterol sulfate [ProAir HFA] 90 mcg/actuation HFA aerosol inhaler 2 puff inhalation Q6H PRN (Reason: shortness of breath or wheezing) Qty: 6.7 0RF vitamin B complex [Balanced B-50] Tablet 1 tab PO DAILY fluticasone propionate 110 mcg/actuation HFA aerosol inhaler 1 inh inhalation Q12H azelastine 0.05 % drops 1 drp ophthalmic (eye) BID PRN (Reason: eye drops) meloxicam 15 mg tablet 15 mg PO DAILY Qty: 1 0RF Rx Instructions: Take this with food. diltiazem HCl 240 mg capsule,extended release 24hr 240 mg PO QHS Qty: 90 3RF amiodarone 200 mg tablet 200 mg PO DAILY Qty: 90 3RF losartan 100 mg tablet 100 mg PO DAILY Qty: 90 3RF Discontinued spironolactone 25 mg tablet 25 mg PO DAILY Qty: 30 11RF paroxetine HCl 40 mg tablet 40 mg PO QDAY lorazepam 0.5 MG tablet 0.5 mg PO BID PRN PRN (Reason: Anxiety) Qty: 6 0RF gabapentin 100 mg capsule 300 mg PO QHS Qty: 12 0RF Patient Comments: per pt to start taking 300mg tonight per pcp instruction. hydralazine 50 mg Tablet 50 mg PO TID Qty: 0 0RF prednisone 10 mg tablet 10 mg PO DAILY furosemide 20 mg tablet 20 mg PO QDAY Referrals / Follow Up: Karen Johnson, [employer] ATTENDANT-C [[facility]] - 12/20/24 10:00 am Disposition Disposition (needs filled in before D/C Order can be placed): Home Health Service 12/14/24 0853<Electronically signed by Radha Munoz DO>Radha Munoz DO CC: JACOBO [employer] ATTENDANTJoselitoC Karen Johnson; Dr. Michael Puga DO; Dr. Owen Alcala MD; Dr. Tavares Anthony MD; NIDA Katz ~ Signed [facility] Work Phone: [phone] 771-582508-14-2025 [facility]08-14-2025 Discharge summary [facility] Medical Records Department [address] [place] [id number] Instructions for Home/Discharge Instructions 12/13/24 1208 MR#: [id number] Acct: [id number] Name: MICHAEL MEIER Rep #:[id number] 1 : 1940 84 From: Radha Munoz DO PCP: Dr. Michael Puga, DO Status:AD M IN Discharge Instructions DC O2, CPAP, BIPAP needs Home O2 Discharge instructions: No Dressing / Incision Discharge Activity: May Shower and Use Walker Weight Bearing Status: Full weight bearing Keep extremity elevated above heart level: Legs Additional Activity Instructions:: Don't sit for longer than 1 hour without getting up and moving around for at least 5 minutes. do the exercises given toyou by the therapists every day. You have to keep moving and exercising or you will lose the muscle strength, have more pain and not be able to move. Dressing / Incision Call your doctor if you observe: Fever of 101 or Higher, Shortness of breath, Dizziness, Fainting spells, Swelling in the ankles, Chest pain, Increased palpitations (irregular heartbeat), Calf discomfort, Uncontrolled pain and - (STROKE symptoms: facial droop, slurred speech, inability to get wordsout, weakness on 1 side of the body and not the other, numbness on 1 side of the bodyand not the other, inability to maintain your balance sitting or standing, vertigo. ) Follow Up Care Please Follow Up With: Karen Johnson, [employer] ATTENDANT-C When: you have an appt scheduled......it is listed later in this document. You will also need to follow up with cardiology (Anabel Horne) and with Dr. Alcala. Test Results: Test results from this visit will be discussed in further detail at your follow- up appointment, if applicable. Pending Tests Upon Discharge: none Discharge Plan Admission Admit Date/Time: 12/03/24 16:09 Primary Reason for Your Visit: Debility due to generalized weakness and tremors. Attending Provider: Radha Munoz Primary Care Provider: Michael Puga Consulting Providers: Raj,Tavares Chi Instructions Additional Instructions / Restrictions: 1. I think the chronic fatigue and lack of motivation were due to not wearing CPAP and an improperly fitting mask rather than due to depression. The high dose of Paxil, 40 mg daily, caused the tremors and difficulty walking. Deconditioning also contributed to trouble walking. As we age if you do not keep moving/walking/exercising you get stiff and sore and then you do not want to move and you sit. Then you lose muscle strength and pretty soon you can't walk. A regular exercise program is critical in maintaining function and continuing to live independently as we age. It helps to have a friendto exercise with because you are more likely to show up because someone else is depending on you toshow up and exercise. 2. Your sodium is low. 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 ADH is a hormone produced by the pituitary and it causes the absorption of excess water in the kidney. The excess water dilutes out the sodium. The problem really is not that you do nothave enough sodium it is that you have too much free water in the body diluting the sodium out. I suspect the SIADH is related to Paxil......Paxil is an SSRI (serotonin reuptake inhibitor) and all medications in this class can cause SIADH. You are taking a SSRI called sertraline (also called Zoloft). We switched to Zoloft because it does not cause the tremors we see with Paxil. TheSertraline is going to be tapered off over the next month. You can not suddenlystop an SSRI after you have been taking it [employer] because you will have withdrawal. there are many other antidepressants if you need one BUT, it you are wearing the CPAP as directed with a good fitting mask you may not need and antidepressant. My hope is that if you are off an SSRI your sodium with normalize and you can get off thesalt tabs. For now we need to continue the salt tabs and the fluid restriction. Do not drink more than 1,500 cc's a day offluid. This is equivalent to 50 ounces. 3. You have gained strength while on rehab and you are doing well ambulating with the walker. I think you will do great at home. You are also much more alert than you were at admission to rehab and you have no tremors. Good for you! 4. Your BP was not well controlled at admission to rehab and we had to change the dosages. You weretaking Hydralazine 50 mg 2-3 times a day and you will nowbe taking 75 mg 3 times a day. The 50 mg tabs are NOT scored so they are very difficult to break in half. I gave you prescriptions for 50 mg tabs and 25 mg tabs. You will take one 50 mg tab and one 25 mg tab 3 times a day for a total of 75 mg3 times a day. 5. You are no longer going to be taking Prednisone. You are also off Ativan and doing well. Ativan is a drug that can be addictive. As we get older this medication is associated with confusion, drowsiness and dysequilibrium leading to increased falls. If you are feeling anxious or dep ressed definitely talk to Karen about this. There are many relaxation techniques that can be utilized to help control anxiety.........breathing exercises and yoga are 2 of these techniques. 6. We have NOT had you on Lasix or Spironolactone since you arrived on rehab. You do not have any significant swelling. The compression wraps on the legs and elevation of your legs when sitting in a chair are controlling the swelling without diuretics. Getting rid of the Prednisone also helps decrease swelling.........Prednisone cause fluid retention. It is always best to sleep in a bed at night because the legs are more elevated above the level of the heart and usually the swelling (if there is any) is gone in the AM. 7. You are anemic and this is new for you. You had blood in the stool when we checked it. Both Meloxicam and Prednisone can cause ulcers in the stomach. There are many reasons why people can have blood in the stool. You nade to follow up with a GI (gastrointestinal) doctor to have a look in the stomach and intestine if the anemia persists. 8. It has been a pleasure getting to know you Michael. I am very happy with the progress you have made on rehab. If you have any questions after you leave rehab please do not hesitate to call me!. OFFICE: [phone] CELL: [phone] NURSES STATION ON REHAB: [phone] Discharge Orders/Prescriptions Prescriptions: New acetaminophen 500 mg Tablet 1,000 mg PO Q6H PRN PRN (Reason: Pain 1-10 Or Fever) Qty: 90 0RF hydralazine 50 mg Tablet 75 mg PO TID Qty: 90 0RF Rx Instructions: you will take 1 50 mg tablet and 1 25 mg tablet 3 times a day to equal 75 mg 3 times a day gabapentin 100 mg Capsule 100 mg PO QHS Qty: 30 0RF lidocaine 5 % Adhesive Patch,Medicated 1 patch topical DAILY Qty: 30 0RF Protocol: *Topical Application Instructions APPLICATION INSTRUCTIONS: left outer hip Rx Instructions: remove the patch 12 H after it is applied. sodium chloride 1,000 mg Tablet,Soluble 1,000 mg PO BID Qty: 60 0RF sertraline 25 mg tablet See Rx Instructions .ROUTE .COMPLEX Qty: 42 0RF Rx Instructions: take 2 tabs at bedtime for 2 weeks and then decrease to 1 tab at bedtime for 2 weeks then discontinue hydralazine 25 mg tablet 25 mg PO TID Qty: 90 0RF Rx Instructions: take 1 50 mg tab and 1 25 mg tab 3 times a day for a total of 75 mg 3 times aday. Continued aspirin [Adult Low Dose Aspirin] 81 [...] mg capsule,delayed release(DR/EC) 20 mg PO QDAY cyclosporine [Restasis] 0.05 % dropperette 1 drp EACH EYE Q12H albuterol sulfate [ProAir HFA] 90 mcg/actuation HFA aerosol inhaler 2 puff inhalation Q6H PRN (Reason: shortness of breath or wheezing) Qty: 6.7 0RF vitamin B complex [Balanced B-50] Tablet 1 tab PO DAILY fluticasone propionate 110 mcg/actuation HFA aerosol inhaler 1 inh inhalation Q12H azelastine 0.05 % drops 1 drp ophthalmic (eye) BID PRN (Reason: eye drops) meloxicam 15 mg tablet 15 mg PO DAILY Qty: 1 0RF Rx Instructions: Take this with food. diltiazem HCl 240 mg capsule,extended release 24hr 240 mg PO QHS Qty: 90 3RF amiodarone 200 mg tablet 200 mg PO DAILY Qty: 90 3RF losartan 100 mg tablet 100 mg PO DAILY Qty: 90 3RF Discontinued spironolactone 25 mg tablet 25 mg PO DAILY Qty: 30 11RF paroxetine HCl 40 mg tablet 40 mg PO QDAY lorazepam 0.5 MG tablet 0.5 mg PO BID PRN PRN (Reason: Anxiety) Qty: 6 0RF gabapentin 100 mg capsule 300 mg PO QHS Qty: 12 0RF Patient Comments: per pt to start taking 300mg tonight per pcp instruction. hydralazine 50 mg Tablet 50 mg PO TID Qty: 0 0RF prednisone 10 mg tablet 10 mg PO DAILY furosemide 20 mg tablet 20 mg PO QDAY Referrals / Follow Up: Karen Johnson, [employer]C [[facility]] - 12/20/24 10:00 am Disposition Disposition (needs filled in before D/C Order can be placed): Home Health Service 12/14/24 0853Radha Munoz DO CC: Marilee [employer]END[employer]-C Karen Johnson; Dr. Michael Puga DO; Dr. Owen Alcala MD; Dr. Tavares Anthony MD; NIDA Katz ~ Signed [facility]08-12-2025 Progress note Author [facility] Note Date/Time December 12, 2024 11 :20am [facility] Medical Records Department [address] [place] [address] Progress Note 12/12/24 1050 MR#: [id number] Acct: [id number] Name: MICHAEL MEIER Rep #:[id number] 1 : 1940 84 From: Radha Munoz DO PCP: Dr. Michael Puga, Status:AD M IN Location: [place] [address]-1 Subjective Subjective Afebrile VSS - Maintaining appropriate oxygen saturation on RA Oral intake - FOOD good FLUIDS - only took 800 PO yesterday. Wt is up again 2 lbs over the past week. She has no edema in the ankles and no pitting of the posterior thighs. Lungs are CTA. She is on an 1800 calorie dietand eating 75-100% of all her meals. D/W die keeper......will decrease the calories to promote weight loss. Discussed with nursing - no problems that need addressed Reviewed the THERAPY notes Medication list reviewed. She is still c/o feeling tired. Did not sleep well because the CPAP masking is leaking. There is air leaking around the mask when I place my hand above the mask........suspect the fatigue she is c/o during the day is related to poorly functioning CPAP mask rather than due to medication. Michael wants to blame the fatigue on the meds.....oriana the Gabapentin and wants to DC Gabapentin. She doesradicular pain in the leg today. She is concerned that her weight is still going up. She denies CP, SOB at rest, N/V/abd pain, dysuria and lightheadedness. I reviewed the results of the BMP done this morning. Sodium is up to 130 and potassium is 5.1 ....from 4.4 on 12/10. Hemolyzed? She is not on a potassium supplement but, she is on Cozaar 100 mg daily. The BUN is 30 and the creatinineis 1.02 which is stable. Serum osmolality is normal at 282 today and the calcium is also normal. Urine osmolality is 539 and urine sodium is 59. 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 Will emir to continue salt tabs and fluid restriction to 1500 cc/day. Objective Data Objective Data Vital Signs: Vital Signs Temp Pulse Resp BP Pulse Ox O2 Del Method O2 Flow Rate 97.8 F 60 16 115/40 L 93 Room Air 0 12/12/24 05:37 12/12/24 05:38 12/12/24 05:37 12/12/24 05:37 12/12/24 05:37 12/12/24 05:37 12/04/24 21:04 FiO2 21 12/04/24 21:04 Oxygen Flow Rate (L/min) 0 Oxygen Delivery Method Room Air Weight: 246 lb 4 oz Body Mass Index (BMI) 41.0 Intake & Output: Intake and Output for Last 24 Hours 12/10/24 12/11/24 12/12/24 23:59 23:59 23:59 Intake Total 1200 / 1200 800 / 800 100 / 100 Output Total 900 / 1200 1700 / 1700 350 / 350 Balance 300 / 0 -900 / -900 -250 / -250 Lab / Micro Data 12/07/24 07:19 12/12/24 07:11 Labs: Laboratory Results - last 24 hr 12/11/24 14:30: Urine Osmolality 539, Ur Random Sodium 59 12/12/24 07:11: Sodium 130 L, Potassium 5.1, Chloride 97 L, Carbon Dioxide 19.8 L, Anion Gap 13, BUN 30 H, Creatinine 1.02, Estim Creat Clear Calc 52.04, Est GFR (MDRD) Non-Af 55 L, BUN/Creatinine Ratio 29.1 H, Glucose 100 H, Serum Osmolality 282, Calcium 9.5 Micro: Microbiology 12/05/24 11:58 Stool Stool Occult Blood (LOIS) - Final Occult Blood Positive Physical Exam Const alert and no apparent distress Constitutional Narrative: She was napping when I entered her room. Has the CPAP on but, there is a air leak around the mask and I suspect it has not been effective the past couple days. Looks tired.......this was initially much improved when she was wearing the CPAP all night........the mask has not changed since admission........will D/W respiratory......may need to try a different mask? General Appearance: cooperative Resp normal respiratory effort and clear to auscultation bilaterally Resp Narrative: No conversational dyspnea Effort and Inspection: Negative for tachypneic Cardio regular rate, regular rhythm and no gallops Cardio Narrative: No ectopy GI normal to inspection, nondistended, normoactive bowel sounds, soft to palpation and non-tender Extremity no calf tenderness Extremity Narrative: PATRIA wraps are in place and she has no ankle edema. 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 Continue therapy 2. DC Gabapentin at pt request. 3. Respiratory will see her and work with the CPAP/mask fit 4. Continue fluid restriction and salt tabs. 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 She has been changed to Sertraline at 50 mg daily......will do this for 2 weeks and then decrease to 25 mg daily for 2 weeks and then DC. 5. Recheck the potassium in the AM. 6. Tremors have completely resolved with discontinuation of Paxil. Charges/Coding Visit Charges Inpatient E&M: 07328 Subs Hosp L1 12/12/24 1120 <Electronically signed by Radha Munoz DO> Radha Munoz DO Cosigner Signature (if applicable): CC: ~ Signed [facility] Work Phone: 1(886) 902-193808-12-2025 Progress note [facility] Medical Records Department [address] [place] [address] Progress Note 12/12/24 1050 MR#: [id number] Acct: [id number] Name: MICHAEL MEIER Rep #:[id number] 1 : 1940 84 From: Radha Munoz DO PCP: Dr. Michael Puga, DO Status:AD M IN Location: [place] [address] Subjective Subjective Afebrile VSS - Maintaining appropriate oxygen saturation on RA Oral intake - FOOD good FLUIDS - only took 800 PO yesterday. Wt is up again 2 lbs over the past week. She has no edema in the ankles and no pitting of the posterior thighs. Lungs are CTA. She is on an 1800 calorie dietand eating 75-100% of all her meals. D/W die keeper......will decrease the calories to promote weight loss. Discussed with nursing - no problems that need addressed Reviewed the THERAPY notes Medication list reviewed. She is still c/o feeling tired. Did not sleep well because the CPAP masking is leaking. There is air leaking around the mask when I place my hand above the mask........suspect the fatigue she is c/o during the day is related to poorly functioning CPAP mask rather than due to medication. Michael wantsto blame the fatigue on the meds.....oriana the Gabapentin and wants to DC Gabapentin. She doesradicular pain in the leg today. She is concerned that her weight is still going up. She denies CP, SOB at rest, N/V/abd pain, dysuria and lightheadedness. I reviewed the results of the BMP done this morning. Sodium is up to 130 and potassium is 5.1 ....from 4.4 on 12/10. Hemolyzed? She is not on a potassium supplement but, she is on Cozaar 100 mg daily.The BUN is 30 and the creatinineis 1.02 which is stable. Serum osmolality is normal at 282 today and the calcium is also normal. Urine osmolality is 539 and urine sodium is 59. 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 Will emir to continue salt tabs and fluid restriction to 1500 cc/day. Objective Data Objective Data Vital Signs: Vital Signs Temp Pulse Resp BP Pulse Ox O2 Del Method O2 Flow Rate 97.8 F 60 16 115/40 L 93 Room Air 0 12/12/24 05:37 12/12/24 05:38 12/12/24 05:37 12/12/24 05:37 12/12/24 05:37 12/12/24 05:37 12/04/24 21:04 FiO2 21 12/04/24 21:04 Oxygen Flow Rate (L/min) 0 Oxygen Delivery Method Room Air Weight: 246 lb 4 oz Body Mass Index (BMI) 41.0 Intake & Output: Intake and Output for Last 24 Hours 12/10/24 12/11/24 12/12/24 23:59 23:59 23:59 Intake Total 1200 / 1200 800 / 800 100 / 100 Output Total 900 / 1200 1700 / 1700 350 / 350 Balance 300 / 0 -900 / -900 -250 / -250 Lab / Micro Data 12/07/24 07:19 12/12/24 07:11 Labs: Laboratory Results - last 24 hr 12/11/24 14:30: Urine Osmolality 539, Ur Random Sodium 59 12/12/24 07:11: Sodium 130 L, Potassium 5.1, Chloride 97 L, Carbon Dioxide 19.8 L, Anion Gap 13, BUN 30 H, Creatinine 1.02, Estim Creat Clear Calc 52.04, Est GFR (MDRD) Non-Af 55 L, BUN/Creatinine Ratio 29.1 H, Glucose 100 H, Serum Osmolality 282, Calcium 9.5 Micro: Microbiology 12/05/24 11:58 Stool Stool Occult Blood (LOIS) - Final Occult Blood Positive Physical Exam Const alert and no apparent distress Constitutional Narrative: She was napping when I entered her room. Has the CPAP on but, there is a air leak around the mask and I suspect it has not been effective the past couple days. Looks tired.......this was initially much improved when she was wearing the CPAP all night........the mask has not changed since admission........will D/W respiratory......may need to try a different mask? General Appearance: cooperative Resp normal respiratory effort and clear to auscultation bilaterally Resp Narrative: No conversational dyspnea Effort and Inspection: Negative for tachypneic Cardio regular rate, regular rhythm and no gallops Cardio Narrative: No ectopy GI normal to inspection, nondistended, normoactive bowel sounds, soft to palpation and non-tender Extremity no calf tenderness Extremity Narrative: PATRIA wraps are in place and she has no ankle edema. No pitting edema of the posterior thighs General Extremity: Negative for edema Skin Rashes: no rashes Assessment & Plan Assessment/Plan (1) Debility: (2) Generalized weakness: (3) Disequilibrium: (4) Tremor: PLAN: resolved (5) Hyponatremia: (6) Normochromic normocytic anemia: (7) Moderate left ventricular hypertrophy: (8) Pulmonary hypertension: (9) Tricuspid regurgitation: QUALIFIERS: Cardiac valve disease etiology: nonrheumatic Qualified Code(s): I36.1 - Nonrheumatic tricuspid (valve) insufficiency (10) Left atrial enlargement: (11) Morbid obesity with BMI of 40.0-44.9, adult: (12) [facility] current use of amiodarone: (13) History of permanent cardiac pacemaker placement: (14) Paroxysmal atrial fibrillation: (15) Hypothyroidism: QUALIFIERS: Hypothyroidism type: unspecified Qualified Code(s): E03.9 - Hypothyroidism, unspecified (16) Essential (primary) hypertension: (17) Hyperlipidemia: QUALIFIERS: Hyperlipidemia type: pure hypercholesterolemia Qualified Code(s): E78.00 - Pure hypercholesterolemia, unspecified; E78.0 - Pure hypercholesterolemia (18) TIA (transient ischemic attack): (19) Heme positive stool: PLAN: Plan 1. Continue therapy 2. DC Gabapentin at pt request. 3. Respiratory will see her and work with the CPAP/mask fit 4. Continue fluid restriction and salt tabs. 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 She has been changed to Sertraline at 50 mg daily......will do this for 2 weeks and then decrease to 25 mg daily for 2 weeks and then DC. 5. Recheck the potassium in the AM. 6. Tremors have completely resolved with discontinuation of Paxil. Charges/Coding Visit Charges Inpatient E&M: 33534 Subs Hosp L1 12/12/24 1120 Radha Munoz DO Cosigner Signature (if applicable): CC: ~ Signed [facility]08-11-2025 Progress note Author Radha Munoz [facility] Note Date/Time December 11, 2024 11 :26am [facility] Medical Records Department [address] [place] [address] Progress Note 12/11/24 0856 MR#: [id number] Acct: [id number] Name: MICHAEL MEIER Rep #:[id number] 9 : 1940 84 From: Radha Munoz DO PCP: Dr. Michael Puga, DO Status:AD M IN Location: [place] [address]1 Subjective Subjective Afebrile VSS -the blood pressure is well-controlled and heart rate is within normal limits. Maintaining appropriate oxygen saturation on RA Oral intake - FOOD good FLUIDS good Discussed with nursing - no problems that need addressed Reviewed the THERAPY notes Medication list reviewed. Recent lab was personally reviewed. Sodium is stable at 128 and the potassium is 4.4. The BUN is 26 with a creatinine of 1.06. She is complaining of feeling fatigued during the day and had a 2 and 1/2 hour nap yesterday. Has not been sleeping that much during the day when she has therapy. she has been compliant with CPAP, even with naps. Denies lightheadedness. Wants to be off Ativan and scheduled Tylenol. No CP, SOB at rest, cough. Objective Data Objective Data Vital Signs: Vital Signs Temp Pulse Resp BP Pulse Ox O2 Del Method O2 Flow Rate 98.2 F 85 16 133/41 H 94 Room Air 0 12/11/24 06:00 12/11/24 06:48 12/11/24 06:00 12/11/24 06:15 12/11/24 06:00 12/11/24 06:00 12/04/24 21:04 FiO2 21 12/04/24 21:04 Oxygen Flow Rate (L/min) 0 Oxygen Delivery Method Room Air Weight: 244 lb 11.41 oz Body Mass Index (BMI) 40.7 Intake & Output: Intake and Output for Last 24 Hours 12/09/24 12/10/24 12/11/24 23:59 23:59 23:59 Intake Total 1340 / 1340 1200 / 1200 240 / 240 Output Total 1000 / 1000 900 / 1200 500 / 500 Balance 340 / 340 300 / 0 -260 / -260 Lab / Micro Data 12/07/24 07:19 12/10/24 06:25 Micro: Microbiology 12/05/24 11:58 Stool Stool Occult Blood (LOIS) - Final Occult Blood Positive Physical Exam Const alert and no apparent distress General Appearance: cooperative Resp normal respiratory effort and clear to auscultation bilaterally Resp Narrative: No conversational dyspnea Effort and Inspection: Negative for tachypneic Cardio regular rate, regular rhythm and no gallops Cardio Narrative: No ectopyu GI normal to inspection, nondistended, normoactive bowel sounds, soft to palpation and non-tender Extremity no calf tenderness Extremity Narrative: PATRIA wraps are in place and she has no ankle edema. 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 Continue therapy 2. Change Tylenol to PRN 3. DC Ativan.....has only been taking 0.25 mg daily in the AM but, this may be contributing to daytime drowsiness. 4. Decrease the Gabapentin at HS to 100 mg since she is c/o fatigue in the AM 5. Continue CPAP 6. She has heme + stool and she is on Meloxicam and Prednisone. Will not continue Prednisone at DC. HGB is stable. 7. I suspect the hyponatremia is related to SSRI.......Cortrosyn stim test was normal. Recheck a urine sodium, urine osmolality and serum osmo in the AM and BMP. Continue the salt tabs and fluid restriction. Will decrease the Sertraline to 50 mg daily. This could possibly cause drowsiness........will give it later in the day. Charges/Coding Visit Charges Inpatient E&M: 04188 Subs Hosp L1 12/11/24 1126 <Electronically signed by Radha Munoz DO> Radha Munoz DO Cosigner Signature (if applicable): CC: ~ Signed [facility] Work Phone: [phone]) 933-929408-11-2025 Progress note [facility] Medical Records Department [address] [place] [address] Progress Note 12/11/24 0856 MR#: [id number] Acct: [id number] Name: MICHAEL MEIER Rep #:[id number] 9 : 1940 84 From: Radha Munoz DO PCP: Dr. Michael Puga, DO Status:AD M IN Location: [place] [address] Subjective Subjective Afebrile VSS -the blood pressure is well-controlled and heart rate is within normal limits. Maintaining appropriate oxygen saturation on RA Oral intake - FOOD good FLUIDS good Discussed with nursing - no problems that need addressed Reviewed the THERAPY notes Medication list reviewed. Recent lab was personally reviewed. Sodium is stable at 128 and the potassium is 4.4. The BUN is 26with a creatinine of 1.06. She is complaining of feeling fatigued during the day and had a 2 and 1/2 hour nap yesterday. Has not been sleeping that much during the day when she has therapy. she has been compliant with CPAP, even with naps. Denies lightheadedness. Wants to be off Ativan and scheduled Tylenol. No CP, SOB at res t, cough. Objective Data Objective Data Vital Signs: Vital Signs Temp Pulse Resp BP Pulse Ox O2 Del Method O2 Flow Rate 98.2 F 85 16 133/41 H 94 Room Air 0 12/11/24 06:00 12/11/24 06:48 12/11/24 06:00 12/11/24 06:15 12/11/24 06:00 12/11/24 06:00 12/04/24 21:04 FiO2 21 12/04/24 21:04 Oxygen Flow Rate (L/min) 0 Oxygen Delivery Method Room Air Weight: 244 lb 11.41 oz Body Mass Index (BMI) 40.7 Intake & Output: Intake and Output for Last 24 Hours 12/09/24 12/10/24 12/11/24 23:59 23:59 23:59 Intake Total 1340 / 1340 1200 / 1200 240 / 240 Output Total 1000 / 1000 900 / 1200 500 / 500 Balance 340 / 340 300 / 0 -260 / -260 Lab / Micro Data 12/07/24 07:19 12/10/24 06:25 Micro: Microbiology 12/05/24 11:58 Stool Stool Occult Blood (LOIS) - Final Occult Blood Positive Physical Exam Const alert and no apparent distress General Appearance: cooperative Resp normal respiratory effort and clear to auscultation bilaterally Resp Narrative: No conversational dyspnea Effort and Inspection: Negative for tachypneic Cardio regular rate, regular rhythm and no gallops Cardio Narrative: No ectopyu GI normal to inspection, nondistended, normoactive bowel sounds, soft to palpation and non-tender Extremity no calf tenderness Extremity Narrative: PATRIA wraps are in place and she has no ankle edema. General Extremity: Negative for edema Skin Rashes: no rashes Assessment & Plan Assessment/Plan (1) Debility: (2) Generalized weakness: (3) Disequilibrium: (4) Tremor: PLAN: resolved (5) Hyponatremia: (6) Normochromic normocytic anemia: (7) Moderate left ventricular hypertrophy: (8) Pulmonary hypertension: (9) Tricuspid regurgitation: QUALIFIERS: Cardiac valve disease etiology: nonrheumatic Qualified Code(s): I36.1 - Nonrheumatic tricuspid (valve) insufficiency (10) Left atrial enlargement: (11) Morbid obesity with BMI of 40.0-44.9, adult: (12) [facility] current use of amiodarone: (13) History of permanent cardiac pacemaker placement: (14) Paroxysmal atrial fibrillation: (15) Hypothyroidism: QUALIFIERS: Hypothyroidism type: unspecified Qualified Code(s): E03.9 - Hypothyroidism, unspecified (16) Essential (primary) hypertension: (17) Hyperlipidemia: QUALIFIERS: Hyperlipidemia type: pure hypercholesterolemia Qualified Code(s): E78.00 - Pure hypercholesterolemia, unspecified; E78.0 - Pure hypercholesterolemia (18) TIA (transient ischemic attack): (19) Heme positive stool: PLAN: Plan 1. Continue therapy 2. Change Tylenol to PRN 3. DC Ativan.....has only been taking 0.25 mg daily in the AM but, this may be contributing to daytime drowsiness. 4. Decrease the Gabapentin at HS to 100 mg since she is c/o fatigue in the AM 5. Continue CPAP 6. She has heme + stool and she is on Meloxicam and Prednisone. Will not continue Prednisone at [place].HGB is stable. 7. I suspect the hyponatremia is related to SSRI.......Cortrosyn stim test was normal. Recheck a urine sodium, urine osmolality and serum osmo in the AM and BMP. Continue the salt tabs and fluid restriction. Will decrease the Sertraline to 50 mg daily. This could possibly cause drowsiness........will give it later in the day. Charges/Coding Visit Charges Inpatient E&M: 13144 Subs Hosp L1 12/11/24 1126 Radha Munoz DO Cosigner Signature (if applicable): CC: ~ Signed [facility]08-08-2025 Progress note Author Radha Vitaliyafrica [facility] Note Date/Time December 08, 2024 3:0 3pm [facility] Medical Records Department [address] [place] [address] Progress Note 12/07/24 1153 MR#: [id number] Acct: [id number] Name: MICHAEL MEIER Rep #:[id number] 1 : 1940 84 From: Radha Munoz DO PCP: Dr. Michael Puga, DO Status:AD M IN Location: [place] [address] Subjective Subjective Michael was seen on team rounds today. Her dtr participated by phone. All questions were answered to their satisfaction. Afebrile VSS -the blood pressure has improved with increase in the hydralazine to 75 mg p.o. 3 times daily. The last 3 blood pressures have ranged from 140/46 to 142/53. Heart rate over the past 24 hours has ranged from 59-72. Maintaining appropriate oxygen saturation on RA while awake. Did not desaturatewith ambulation......pulse ox 94% with ambulation. Oral intake - FOOD good FLUIDS good Discussed with nursing - no problems that need addressed Reviewed the THERAPY notes Medication list reviewed. Tells me that she slept well last night. She is fixated on needing a sleeping pill and despite sleeping well last night she is requesting a sleeping pill. I told her that I restarted the Gabapentin at 200 mg Q HS and it will help make her sleepy. The reason she is not sleeping well at night is she was napping throughout the day and she was having back and leg pain at night. She is now being compliant with CPAP. She denies CP, SOB at rest, cough, N/V/abd pain, dysuria. The tremors have resolved. Pt tells me that she would like not to go back on Paxil.......even at a reduced dose. We discussed using an SSRI that does not cause as much sedation and is not associated with tremors. She is agreeable to transitioning to a different SSRI and we have chosen Sertraline. Will start at 100 mg a day. She tells me that she no longer feels like she is falling backwards when she wlalks All lab drawn today was personally reviewed. Hemoglobin is 10.5 which is stable. Sodium is low at 127. FENA and FEUr are indeterminate. The urine sodium is not low and the urine osmo is not maximally dilute. I suspect she hasSIADH (may be related to Paxil). BUN is 22 which is down from 32 on 12/25 and her creatinine is 0.91, down from 1.02 on 12/04/24. She is not on fluid restriction or salt tabs. Objective Data Objective Data Vital Signs: Vital Signs Temp Pulse Resp BP Pulse Ox O2 Del Method O2 Flow Rate 97.6 F L 60 16 140/46 H 93 Room Air 0 12/07/24 06:00 12/07/24 09:27 12/07/24 06:00 12/07/24 09:27 12/07/24 06:00 12/07/24 06:00 12/04/24 21:04 FiO2 21 12/04/24 21:04 Oxygen Flow Rate (L/min) 0 Oxygen Delivery Method Room Air Weight: 244 lb 11.41 oz Body Mass Index (BMI) 40.7 Intake & Output: Intake and Output for Last 24 Hours 12/05/24 12/06/24 12/07/24 23:59 23:59 23:59 Intake Total 1720 / 1720 1465 / 1465 480 / 480 Output Total 1800 / 1800 3290 / 3290 650 / 650 Balance -80 / -80 -1825 / -1825 -170 / -170 Lab / Micro Data 12/07/24 07:19 12/07/24 07:19 Labs: Laboratory Results - last 24 hr 12/07/24 07:19: Hgb 10.5 L, Hct 30.4 L, Sodium 127 L, Potassium 4.7, Chloride 92L, Carbon Dioxide 24.1, Anion Gap 10, BUN 22 H, Creatinine 0.91, Estim Creat Clear Calc 58.12, Est GFR (MDRD) Non-Af 63, BUN/Creatinine Ratio 24.6 H, [id number] H, Calcium 8.9 Micro: Microbiology 12/05/24 11:58 Stool Stool Occult Blood (LOIS) - Final Occult Blood Positive Physical Exam Const alert, oriented x3 and no apparent distress General Appearance: cooperative Resp clear to auscultation bilaterally Resp Narrative: Breathing easily at rest with no tachypnea and no conversational dyspnea. Gets a little labored with ambulation.....I suspect due to deconditioning.....has been mostly sedentary as an OP. Cardio regular rate, regular rhythm, no murmurs and no gallops Cardio Narrative: No ectopy GI normal to inspection, nondistended, normoactive bowel sounds, soft to palpation and non-tender Extremity no calf tenderness General Extremity: Negative for edema Neuro Neuro Narrative: no tremors today. Still feels as though she is leaning backward when walking. 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 Continue therapy 2. Start salt tablets 1 g p.o. twice daily 3. Fluid restrict to 1500 cc daily. 4. Lasix 40 mg p.o. x 1 today. 5. Recheck a BMP Wednesday Charges/Coding Visit Charges Inpatient E&M: 76821 Subs Hosp L2 12/08/24 1432 <Electronically signed by Radha Munoz DO> Radha Munoz DO Cosigner Signature (if applicable): CC: ~ Signed ADDENDUM by Dr. Radha Munoz DO on 12/08/24 at 1503 Addendum discussed dosing when transitioning a pt from Paxil to Sertraline. 100 mg of Sertraline would be equivalent to 40 mg of Paxil. I do not think she needs thatmuch medication. Will start with 50 mg of sertraline and monitor closely for any withdrawl sx. 12/08/24 1503 <Electronically signed by Radha leger DO> Date _ Radha Munozer Signature (if applicable): Date cc: ~* Signed [facility] Work Phone: 1(969) 379-375108-08-2025 Progress note Author Radha Munoz [facility] Note Date/Time December 08, 2024 2:1 6pm [facility] Medical Records Department [address] [place] [address] Progress Note 12/06/24 1046 MR#: [id number] Acct: [id number] Name: MICHAEL MEIER Rep #:[id number] 5 : 1940 84 From: Radha Munoz DO PCP: Dr. Michael Puga DO Status:AD M IN Location: [place] [address]1 Subjective Subjective Afebrile The blood pressure over the past 24 hours has ranged from 146/58 to 179/64. Diastolics are always within goal but systolics are consistently high. The heart rate is ranged from 59-60. She is maintaining appropriate oxygen saturation on room air while awake. Nursing reports that the pt stated she was awake at 2 AM las night and not sleeping but, review of the nursing notes state she slept well? Eating 75 to 100% of all her meals. She had 1720 cc in yesterday. Fluid balance was still -88. Overnight she was -605. The weight today is 244 pounds and 11 ounces which is up from 236 at admission to the hospital. She weighed 243 at presentation to rehab. She was 220-224 in April of last year. Antihypertensives include diltiazem 240 mg p.o. nightly and losartan 100 mg daily. AM cortisol was 6.62. Following Cortrosyn the cortisol increased at 27.3 which indicates good adrenal function. Prednisone was held yesterday and today. Michael denies lightheadedness, cephalgia, chest pain, shortness of breath, cough,nausea/vomiting/abdominal pain, dysuria and calf tenderness. Objective Data Objective Data Vital Signs: Vital Signs Temp Pulse Resp BP Pulse Ox O2 Del Method O2 Flow Rate 98.5 F 59 L 16 179/64 H 95 Room Air 0 12/06/24 05:30 12/06/24 05:30 12/06/24 05:30 12/06/24 05:30 12/06/24 05:30 12/06/24 05:30 12/04/24 21:04 FiO2 21 12/04/24 21:04 Oxygen Flow Rate (L/min) 0 Oxygen Delivery Method Room Air Weight: 244 lb 11.41 oz Body Mass Index (BMI) 40.7 Intake & Output: Intake and Output for Last 24 Hours 12/04/24 12/05/24 12/06/24 23:59 23:59 23:59 Intake Total 2440 / 2440 1720 / 1720 985 / 985 Output Total 2049 / 2049 1800 / 1800 1290 / 1290 Balance 390 / 390 -80 / -80 -305 / -305 Lab / Micro Data 12/07/24 07:19 12/07/24 07:19 Labs: Laboratory Results - last 24 hr 12/06/24 05:07: Cortisol AM Sample 6.62 12/06/24 06:26: Cortisol AM Sample 27.30 H Micro: Microbiology 12/05/24 11:58 Stool Stool Occult Blood (LOIS) - Final Occult Blood Positive Physical Exam Const alert, oriented x3 and no apparent distress General Appearance: cooperative Resp clear to auscultation bilaterally Resp Narrative: Breathing easily at rest with no tachypnea and no conversational dyspnea. Gets a little labored with ambulation.....I suspect due to deconditioning.....has been mostly sedentary as an OP. Cardio regular rate, regular rhythm, no murmurs and no gallops Cardio Narrative: No ectopy GI normal to inspection, nondistended, normoactive bowel sounds, soft to palpation and non-tender Extremity no calf tenderness General Extremity: Negative for edema Neuro Neuro Narrative: no tremors today. Still feels as though she is leaning backward when walking. 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 Continue therapy 2. Cortrosyn stim test shows normal adrenal function. Will decrease the Prednisone to 2.5 mg daily for 10 days and then discontinue. 3. Increase Hydralazine to 75 mg TID. Goal for systolic is to keep it < 135. Restart Lasix in the AM AFTER I review the lab. Also restart Aldactone. Continue the compression to the legs. 4. Consult the die keeper for education and counselling in weight loss. 5. Restart the Paxil in the AM at 1/2 the dose (20 mg daily) 6. Would like to wean off the Ativan. 7. BMP in the AM 8. Restart gabapentin at 200 mg nightly......she has restless leg and some chronic back pain......this may be waking her up at night. Charges/Coding Visit Charges Inpatient E&M: 33779 Subs Hosp L1 12/08/24 1412 <Electronically signed by Radha Munoz DO> Radha Munoz DO Cosigner Signature (if applicable): CC: ~ Signed [facility] Work Phone: 1(525) 566-123708-08-2025 Progress note [facility] Medical Records Department [address] [place] [address] Progress Note 12/07/24 1153 MR#: [id number] Acct: [id number] Name: MICHAEL MEIER Rep #:[id number] 1 : 1940 84 From: Radha Munoz DO PCP: Dr. Michael Puga, DO Status:AD M IN Location: [place] [address] Subjective Subjective Michael was seen on team rounds today. Her dtr participated by phone. All questions were answered to their satisfaction. Afebrile VSS -the blood pressure has improved with increase in the hydralazine to 75 mg p.o. 3 times daily. The last 3 blood pressures have ranged from 140/46 to 142/53. Heart rate over the past 24 hours has ranged from 59-72. Maintaining appropriate oxygen saturation on RA while awake. Did not desaturatewith ambulation......pulse ox 94% with ambulation. Oral intake - FOOD good FLUIDS good Discussed with nursing - no problems that need addressed Reviewed the THERAPY notes Medication list reviewed. Tells me that she slept well last night. She is fixated on needing a sleeping pill and despite sleeping well last night she is requesting a sleeping pill. I told her that I restarted the Gabapentin at 200 mg Q HS and it will help make her sleepy. The reason she is not sleeping well at night is she was napping throughout the day and she was having back and leg pain at night. She is now being compliant with CPAP. She denies CP, SOB at rest, cough, N/V/abd pain, dysuria. The tremors have resolved.Pt tells me that she would like not to go back on Paxil.......even at a reduced dose. We discussed using an SSRI that does not cause as much sedation and is not associated with tremors. She is agreeable to transitioning to a different SSRI and we have chosen Sertraline. Will start at 100 mg a day. She tells me that she no longer feels like she is falling backwards when she wlalks All lab drawn today was personally reviewed. Hemoglobin is 10.5 which is stable. Sodium is low at 127. FENA and FEUr are indeterminate. The urine sodium is not low and the urine osmo is not maximallydilute. I suspect she hasSIADH (may be related to Paxil). BUN is 22 which is down from 32 on 12/25 and her creatinine is 0.91, down from 1.02 on 12/04/24. She is not on fluid restriction or salt tabs. Objective Data Objective Data Vital Signs: Vital Signs Temp Pulse Resp BP Pulse Ox O2 Del Method O2 Flow Rate 97.6 F L 60 16 140/46 H 93 Room Air 0 12/07/24 06:00 12/07/24 09:27 12/07/24 06:00 12/07/24 09:27 12/07/24 06:00 12/07/24 06:00 12/04/24 21:04 FiO2 21 12/04/24 21:04 Oxygen Flow Rate (L/min) 0 Oxygen Delivery Method Room Air Weight: 244 lb 11.41 oz Body Mass Index (BMI) 40.7 Intake & Output: Intake and Output for Last 24 Hours 12/05/24 12/06/24 12/07/24 23:59 23:59 23:59 Intake Total 1720 / 1720 1465 / 1465 480 / 480 Output Total 1800 / 1800 3290 / 3290 650 / 650 Balance -80 / -80 -1825 / -1825 -170 / -170 Lab / Micro Data 12/07/24 07:19 12/07/24 07:19 Labs: Laboratory Results - last 24 hr 12/07/24 07:19: Hgb 10.5 L, Hct 30.4 L, Sodium 127 L, Potassium 4.7, Chloride 92L, Carbon Dioxide 24.1, Anion Gap 10, BUN 22 H, Creatinine 0.91, Estim Creat Clear Calc 58.12, Est GFR (MDRD) Non-Af 63, BUN/Creatinine Ratio 24.6 H, [id number] H, Calcium 8.9 Micro: Microbiology 12/05/24 11:58 Stool Stool Occult Blood (LOIS) - Final Occult Blood Positive Physical Exam Const alert, oriented x3 and no apparent distress General Appearance: cooperative Resp clear to auscultation bilaterally Resp Narrative: Breathing easily at rest with no tachypnea and no conversational dyspnea. Gets a little labored with ambulation.....I suspect due to deconditioning.....has been mostly sedentary as an OP. Cardio regular rate, regular rhythm, no murmurs and no gallops Cardio Narrative: No ectopy GI normal to inspection, nondistended, normoactive bowel sounds, soft to palpation and non-tender Extremity no calf tenderness General Extremity: Negative for edema Neuro Neuro Narrative: no tremors today. Still feels as though she is leaning backward when walking. Assessment & Plan Assessment/Plan (1) Debility: (2) Generalized weakness: (3) Disequilibrium: (4) Tremor: (5) Hyponatremia: (6) Normochromic normocytic anemia: (7) Moderate left ventricular hypertrophy: (8) Pulmonary hypertension: (9) Tricuspid regurgitation: QUALIFIERS: Cardiac valve disease etiology: nonrheumatic Qualified Code(s): I36.1 - Nonrheumatic tricuspid (valve) insufficiency (10) Left atrial enlargement: (11) Morbid obesity with BMI of 40.0-44.9, adult: (12) [facility] current use of amiodarone: (13) History of permanent cardiac pacemaker placement: (14) Paroxysmal atrial fibrillation: (15) Hypothyroidism: QUALIFIERS: Hypothyroidism type: unspecified Qualified Code(s): E03.9 - Hypothyroidism, unspecified (16) Essential (primary) hypertension: (17) Hyperlipidemia: QUALIFIERS: Hyperlipidemia type: pure hypercholesterolemia Qualified Code(s): E78.00 - Pure hypercholesterolemia, unspecified; E78.0 - Pure hypercholesterolemia (18) TIA (transient ischemic attack): PLAN: Plan 1. Continue therapy 2. Start salt tablets 1 g p.o. twice daily 3. Fluid restrict to 1500 cc daily. 4. Lasix 40 mg p.o. x 1 today. 5. Recheck a BMP Wednesday Charges/Coding Visit Charges Inpatient E&M: 92954 Subs Hosp L2 12/08/24 1432 Radha Munoz DO Cosigner Signature (if applicable): CC: ~ Signed ADDENDUM by Dr. Radha Munoz DO on 12/08/24 at 1503 Addendum discussed dosing when transitioning a pt from Paxil to Sertraline. 100 mg of Sertraline would be equivalent to 40 mg of Paxil. I do not think she needs thatmuch medication. Will start with 50 mg of sertraline and monitor closely for any withdrawl sx. 12/08/24 1503 ti DO> Date _ Radha Munoz DO Cosigner Signature (if applicable): Date cc: ~* Signed [facility]08-08-2025 Progress note [facility] Medical Records Department [address] [place] [address] Progress Note 12/06/24 1046 MR#: [id number] Acct: [id number] Name: MICHAEL MEIER Rep #:[id number] 5 : 1940 84 From: Radha Munoz DO PCP: Dr. Michael Puga, Status:AD M IN Location: [place] [address]1 Subjective Subjective Afebrile The blood pressure over the past 24 hours has ranged from 146/58 to 179/64. Diastolics are always within goal but systolics are consistently high. The heart rate is ranged from 59-60. She is maintaining appropriate oxygen saturation on room air while awake. Nursing reports that the pt stated she was awake at 2 AM las night and not sleeping but, review of the nursing notes state she slept well? Eating 75 to 100% of all her meals. She had 1720 cc in yesterday. Fluid balance was still -88. Overnight she was -605. The weight today is 244 pounds and 11 ounces which is up from 236 at admission to the hospital. Sheweighed 243 at presentation to rehab. She was 220-224 in April of last year. Antihypertensives include diltiazem 240 mg p.o. nightly and losartan 100 mg daily. AM cortisol was 6.62. Following Cortrosyn the cortisol increased at 27.3 which indicates good adrenal function. Prednisone was held yesterday and today. Michael denies lightheadedness, cephalgia, chest pain, shortness of breath, cough,nausea/vomiting/abdominal pain, dysuria and calf tenderness. Objective Data Objective Data Vital Signs: Vital Signs Temp Pulse Resp BP Pulse Ox O2 Del Method O2 Flow Rate 98.5 F 59 L 16 179/64 H 95 Room Air 0 12/06/24 05:30 12/06/24 05:30 12/06/24 05:30 12/06/24 05:30 12/06/24 05:30 12/06/24 05:30 12/04/24 21:04 FiO2 21 12/04/24 21:04 Oxygen Flow Rate (L/min) 0 Oxygen Delivery Method Room Air Weight: 244 lb 11.41 oz Body Mass Index (BMI) 40.7 Intake & Output: Intake and Output for Last 24 Hours 12/04/24 12/05/24 12/06/24 23:59 23:59 23:59 Intake Total 2440 / 2440 1720 / 1720 985 / 985 Output Total 2049 / 2049 1800 / 1800 1290 / 1290 Balance 390 / 390 -80 / -80 -305 / -305 Lab / Micro Data 12/07/24 07:19 12/07/24 07:19 Labs: Laboratory Results - last 24 hr 12/06/24 05:07: Cortisol AM Sample 6.62 12/06/24 06:26: Cortisol AM Sample 27.30 H Micro: Microbiology 12/05/24 11:58 Stool Stool Occult Blood (LOIS) - Final Occult Blood Positive Physical Exam Const alert, oriented x3 and no apparent distress General Appearance: cooperative Resp clear to auscultation bilaterally Resp Narrative: Breathing easily at rest with no tachypnea and no conversational dyspnea. Gets a little labored with ambulation.....I suspect due to deconditioning.....has been mostly sedentary as an OP. Cardio regular rate, regular rhythm, no murmurs and no gallops Cardio Narrative: No ectopy GI normal to inspection, nondistended, normoactive bowel sounds, soft to palpation and non-tender Extremity no calf tenderness General Extremity: Negative for edema Neuro Neuro Narrative: no tremors today. Still feels as though she is leaning backward when walking. 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 Continue therapy 2. Cortrosyn stim test shows normal adrenal function. Will decrease the Prednisone to 2.5 mg daily for 10 days and then discontinue. 3. Increase Hydralazine to 75 mg TID. Goal for systolic is to keep it < 135. Restart Lasix in the AM AFTER I review the lab. Also restart Aldactone. Continue the compression to the legs. 4. Consult the die keeper for education and counselling in weight loss. 5. Restart the Paxil in the AM at 1/2 the dose (20 mg daily) 6. Would like to wean off the Ativan. 7. BMP in the AM 8. Restart gabapentin at 200 mg nightly......she has restless leg and some chronic back pain......this may be waking her up at night. Charges/Coding Visit Charges Inpatient E&M: 70832 Subs Hosp L1 12/08/24 1416 Radha MarileeAyden Tammy VELSACO Cosigner Signature (if applicable): CC: ~ Signed [facility]08-05-2025 NoteHNO ID: [id number] Author: MAGALY MARINO MA Service: ? Author Type: Cue Worker Type: Progress Notes Filed: 12/05/2024 13:17 Note Text: POPULATION HEALTH NAVIGATION OUTREACH Action/FYI Contacted patient to schedule HCC care gaps and health maintenance. 1st attempt: Left message with my direct number 2nd attempt: My Chart message sent Topic Due (Y or N) Comments Annual Wellness Exam Yes PCP Follow up No Colorectal Cancer Screening No A1C No HTN/Controlling BP Yes HCC Yes Updated appointment notes No Reason for Outreach Care Gap/HCC or Scheduling Wellness Visits Care Gaps due: Medicare Annual Wellness Visit Controlling Blood Pressure Patient Contacted: Unable or unnecessary to reach patient: Left message MyChart message sent HCC related Navigation Signature: Magaly Marino MA December 05, 2024 1:16 [facility]08-05-2025 Progress note Author Radha Munoz [facility] Note Date/Time December 05, 2024 10: 40am [facility] Medical Records Department [address] [place] [address] Progress Note 12/05/24 0739 MR#: [id number] Acct: [id number] Name: MICHAEL MEIER Rep #:[id number] : 1940 84 From: Radha Munoz DO PCP: Dr. Michael Puga, DO Status:AD M IN Location: [id number] Subjective Subjective Afebrile VSS -blood pressure over the past 24 hours has ranged from 123/42 176/60. Diastolics are always within goal but systolics are pretty consistently greater than 140. Heart rate ranged from 59-63. Maintaining appropriate oxygen saturation on RA Oral intake - FOOD good FLUIDS good Discussed with nursing - no problems that need addressed Reviewed the THERAPY notes Medication list reviewed. I reviewed the overnight trending pulse ox which was done on CPAP with no O2 bleed in. The O2 sat was 89 or less 1.52% of the time for a total of 6 minutes and 50 seconds. There were no oxygen saturations lasting greater than 60 seconds. The AM cortisol ordered for this morning was done at 4:22 PM yesterday and it was low at 2.72. She had 10 mg of Prednisone yesterday AM? She tells me that she feels more alert today. She did not awaken with tremors today. Denies SOB at rest, CP, lightheadedness. Michael tells me today that the prednisone was started by palliative care? To help with SOB? Denies lightheadedness today and also denies SOB at rest, CP, N/V abd pain, dysuria. She di not desaturate with ambulation but, she did get SOB. FEurea and FENa yesterday indeterminate. I reviewed Dr. Alcala's PN form 11/02/24 and Prednisone was not listed on her medication list. In his notes she is to be using O2 at night, 4 LPM, with CPAP 03/09. She had a 6 minute walk test that showed O2 sat of 94%. she was due undergo a re-titration starting at BiPAP 03/09 on 2 LPM. Objective Data Objective Data Vital Signs: Vital Signs Temp Pulse Resp BP Pulse Ox O2 Del Method O2 Flow Rate 97.8 F 63 16 159/64 H 94 Room Air 0 12/05/24 05:05 12/05/24 05:07 12/05/24 05:05 12/05/24 05:05 12/05/24 07:33 12/05/24 07:33 12/04/24 21:04 FiO2 21 12/04/24 21:04 Oxygen Flow Rate (L/min) 0 Oxygen Delivery Method Room Air Weight: 243 lb 0.002 oz Body Mass Index (BMI) 40.4 Intake & Output: Intake and Output for Last 24 Hours 12/03/24 12/04/24 12/05/24 23:59 23:59 23:59 Intake Total 240 / 240 2440 / 2440 Output Total 900 / 900 0 / 2050 550 / 550 Balance -660 / -660 390 / 390 -550 / -550 Lab / Micro Data 12/04/24 05:24 12/04/24 05:24 Labs: Laboratory Results - last 24 hr 12/04/24 12:15: Urine Osmolality 298, Ur Random Sodium 58, Urine Creatinine 23.20 L, Urine Urea Nitrogen 346 12/04/24 13:22: Serum Osmolality 283 12/04/24 16:22: Cortisol AM Sample 2.72 L Physical Exam Const alert, oriented x3 and no apparent distress Constitutional Narrative: Very alert and pleasant today. Did not desaturate with ambulation but, she got noticeably more SOB. General Appearance: cooperative Resp clear to auscultation bilaterally Resp Narrative: Breathing easily at rest with no tachypnea and no conversational dyspnea. Gets a little labored with ambulation. Cardio regular rate, regular rhythm, no murmurs and no gallops Cardio Narrative: No ectopy GI normal to inspection, nondistended, normoactive bowel sounds, soft to palpation and non-tender Extremity no calf tenderness General Extremity: Negative for edema Assessment & Plan Assessment/Plan (1) Debility: (2) Generalized weakness: (3) Disequilibrium: (4) Tremor: (5) Hyponatremia: (6) Normochromic normocytic anemia: (7) Moderate left ventricular hypertrophy: (8) Pulmonary hypertension: (9) Tricuspid regurgitation: (10) Left atrial enlargement: (11) Morbid obesity with BMI of 40.0-44.9, adult: (12) MCC current use of amiodarone: (13) History of permanent cardiac pacemaker placement: (14) Paroxysmal atrial fibrillation: (15) Hypothyroidism: QUALIFIERS: Hypothyroidism type: unspecified Qualified Code(s): E03.9 - Hypothyroidism, unspecified (16) Essential (primary) hypertension: (17) Hyperlipidemia: QUALIFIERS: Hyperlipidemia type: pure hypercholesterolemia Qualified Code(s): E78.00 - Pure hypercholesterolemia, unspecified; E78.0 - Pure hypercholesterolemia (18) TIA (transient ischemic attack): PLAN: Plan 1. Continue therapy 2. Check a pulse ox with exertion today 3. Cortrosyn stimulation test tomorrow. May need an endocrinology consult. Not sure whether she is actually taking Prednisone at home of not? Not sure why she was ever really on Prednisone? Not sure why Palliative would start a steroid for breathing when she sees Dr. Alcala for pulmonary? 4. Consult for a cog eval. 5. she is to have an OP nuclear stress following DC from rehab and then will follow up with cardiology. 6. Obtain palliative care notes to see when she was started on Prednisone and how long she was to take it? Charges/Coding Visit Charges Inpatient E&M: 22127 Subs Hosp L1 12/05/24 1040 <Electronically signed by Radha Munoz DO> Radha Munoz DO Cosigner Signature (if applicable): CC: ~ Signed [facility] Work Phone: 1(883) 791-244008-05-2025 Progress note [facility] Medical Records Department [address] [place] [address] Progress Note 12/05/24 0739 MR#: [id number] Acct: [id number] Name: MICHAEL MEIER Rep #:[id number] : 1940 84 From: Radha Muonz DO PCP: Dr. Michael Puga, DO Status:AD M IN Location: [place] [address] Subjective Subjective Afebrile VSS -blood pressure over the past 24 hours has ranged from 123/42 176/60. Diastolics are always within goal but systolics are pretty consistently greater than 140. Heart rate ranged from 59-63. Maintaining appropriate oxygen saturation on RA Oral intake - FOOD good FLUIDS good Discussed with nursing - no problems that need addressed Reviewed the THERAPY notes Medication list reviewed. I reviewed the overnight trending pulse ox which was done on CPAP with no O2 bleed in. The O2 sat was 89 or less 1.52% of the time for a total of 6 minutes and 50 seconds. There were no oxygen saturations lasting greater than 60 seconds. The AM cortisol ordered for this morning was done at 4:22 PM yesterday and it was low at 2.72. She had 10 mg of Prednisone yesterday AM? She tells me that she feels more alert today. She did not awaken with tremors today. Denies SOB at rest, CP, lightheadedness. Michael tells me today that the prednisone was started by palliative care? To help with SOB? Denies lightheadedness today and also denies SOB at rest, CP, N/V abd pain, dysuria. She di not desaturate with ambulation but, she did get SOB. FEurea and FENa yesterday indeterminate. I reviewed Dr. Alcala's PN form 11/02/24 and Prednisone was not listed on her medication list. In his notes she is to be using O2 at night, 4 LPM, with CPAP 03/09. She had a 6 minute walk test that showed O2 sat of 94%. she was due undergo a re-titration starting at BiPAP 03/09 on 2 LPM. Objective Data Objective Data Vital Signs: Vital Signs Temp Pulse Resp BP Pulse Ox O2 Del Method O2 Flow Rate 97.8 F 63 16 159/64 H 94 Room Air 0 12/05/24 05:05 12/05/24 05:07 12/05/24 05:05 12/05/24 05:05 12/05/24 07:33 12/05/24 07:33 12/04/24 21:04 FiO2 21 12/04/24 21:04 Oxygen Flow Rate (L/min) 0 Oxygen Delivery Method Room Air Weight: 243 lb 0.002 oz Body Mass Index (BMI) 40.4 Intake & Output: Intake and Output for Last 24 Hours 12/03/24 12/04/24 12/05/24 23:59 23:59 23:59 Intake Total 240 / 240 2440 / 2440 Output Total 900 / 900 2050 / 2050 550 / 550 Balance -660 / -660 390 / 390 -550 / -550 Lab / Micro Data 12/04/24 05:24 12/04/24 05:24 Labs: Laboratory Results - last 24 hr 12/04/24 12:15: Urine Osmolality 298, Ur Random Sodium 58, Urine Creatinine 23.20 L, Urine Urea Nitrogen 346 12/04/24 13:22: Serum Osmolality 283 12/04/24 16:22: Cortisol AM Sample 2.72 L Physical Exam Const alert, oriented x3 and no apparent distress Constitutional Narrative: Very alert and pleasant today. Did not desaturate with ambulation but, she got noticeably more SOB. General Appearance: cooperative Resp clear to auscultation bilaterally Resp Narrative: Breathing easily at rest with no tachypnea and no conversational dyspnea. Gets a little labored with ambulation. Cardio regular rate, regular rhythm, no murmurs and no gallops Cardio Narrative: No ectopy GI normal to inspection, nondistended, normoactive bowel sounds, soft to palpation and non-tender Extremity no calf tenderness General Extremity: Negative for edema Assessment & Plan Assessment/Plan (1) Debility: (2) Generalized weakness: (3) Disequilibrium: (4) Tremor: (5) Hyponatremia: (6) Normochromic normocytic anemia: (7) Moderate left ventricular hypertrophy: (8) Pulmonary hypertension: (9) Tricuspid regurgitation: (10) Left atrial enlargement: (11) Morbid obesity with BMI of 40.0-44.9, adult: (12) MCC current use of amiodarone: (13) History of permanent cardiac pacemaker placement: (14) Paroxysmal atrial fibrillation: (15) Hypothyroidism: QUALIFIERS: Hypothyroidism type: unspecified Qualified Code(s): E03.9 - Hypothyroidism, unspecified (16) Essential (primary) hypertension: (17) Hyperlipidemia: QUALIFIERS: Hyperlipidemia type: pure hypercholesterolemia Qualified Code(s): E78.00 - Pure hypercholesterolemia, unspecified; E78.0 - Pure hypercholesterolemia (18) TIA (transient ischemic attack): PLAN: Plan 1. Continue therapy 2. Check a pulse ox with exertion today 3. Cortrosyn stimulation test tomorrow. May need an endocrinology consult. Not sure whether she is actually taking Prednisone at home of not? Not sure why she was ever really on Prednisone? Not sure why Palliative would start a steroid for breathing when she sees Dr. Alcala for pulmonary? 4. Consult for a cog eval. 5. she is to have an OP nuclear stress following DC from rehab and then will follow up with cardiology. 6. Obtain palliative care notes to see when she was started on Prednisone and how long she was to take it? Charges/Coding Visit Charges Inpatient E&M: 42649 Subs Hosp L1 12/05/24 1040 Radha Grissomign Signature (if applicable): CC: ~ Signed [facility]08-05-2025 NotePatient Outreach (QUEENIENAV) MICHAEL MEIER ([id number]) 1940 F Date Time Provider Department 12/05/24 MAGALY MARINO During your visit today, we recorded the following information about you: Magaly Marino MA 12/05/2024 1:17 PM Signed POPULATION HEALTH NAVIGATION OUTREACH Action/FYI Contacted patient to schedule HCC care gaps and health maintenance. 1st attempt: Left message with my direct number 2nd attempt: My Chart message sent Topic Due (Y or N) Comments Annual Wellness Exam Yes PCP Follow up No Colorectal Cancer Screening No A1C No HTN/Controlling BP Yes HCC Yes Updated appointment notes No Reason for Outreach Care Gap/HCC or Scheduling Wellness Visits Care Gaps due: Medicare Annual Wellness Visit Controlling Blood Pressure Patient Contacted: Unable or unnecessary to reach patient: Left message MyChart message sent HCC related Navigation Signature: Magaly Marino MA December 05, 2024 1:16 PM Allergies As of Date: 12/05/2024 Noted Allergy Reaction CIPROFLOXACIN 09/05/2018 2 - [...] LPN - Fully Assessed Reason for Visit: Population Health Navigation Outreach [3910] Cmt: Medora/Workbench/ACO Prescriptions as of 12/05/2024 - rosuvastatin (CRESTOR) 10 mg tablet Take 1 tablet by mouth daily at bedtime. - LORazepam (ATIVAN) 0.5 mg TAKE 1 [...] instructed every 4 hours as needed. - RESTASIS 0.05 % ophthalmic emulsion - [...] once daily. Problem List As Of Date 12/05/2024 Noted Resolved MALIG MELANOMA TRUNK [C43.59] 02/17/2001 [...] 01/09/2012 NEVI///BENIGN COLIN SKIN FACE NEC [D23.30] (more content not included)... [facility]08-04-2025 History and physical note Author Radha Munoz [facility] Note Date/Time December 04, 2024 5:4 1pm [facility] Medical Records Department [address] [place] [address] Post Admission Physician Pito 12/04/24 1736 MR#: [id number] Acct: [id number] Name: MICHAEL MEIER Rep #:[id number] : 1940 84 From: Radha Munoz DO PCP: Dr. Michael Puga, Status:AD M IN Location: [place] [address] Admission Information Primary Diagnosis:: Debility due to disequilibrium and tremors of extremities. Status Changes from Prescreening?: No changes Identified Actual Problem List:: Falls, Pain, ALteration in Cmfrt, Depression, Alteration in Sleep, Mobility Impaired, Self Care Deficit, BP, Hypertension, Alteration/ Air Exchange, Fluid Change-Dehydration and Alteration-Leisure Activ. Potential Problem List:: DVT, Bleeding, Infection, UTI, Aspiration, Falls, Skin Integrity and Depression Risk of Complications DVT: JONATAN Hose and - (Heparin 5000 units SQ every 12 hours) Bleeding: Monitor Lab Values, Nursing to Teach Precautions for anti-coagulation therapy., Wound, if applicable, to be assessed every shift. and Stroke patients assessed for lethargy or change in status. Infection: Clinical Staff to Monitor for S/S of infection: and S/S of infection include fever, redness, warmth, etc. Urinary Tract Infection: Monitor for frequency, burning, discomfort, or incontinence. and Nursing will obtain urine sample for urinalysis and C&S when ordered. Aspiration: Clinical staff will monitor for coughing, drooling, congestion., Speech will evaluate swallowing and dsyphasia. and Nursing will monitor patient swallowing during meals. Falls: Patient will be evaluated for Fall Precautions and Patient will be placedon Fall Precautions as indicated per protocol. Skin Breakdown: Nursing will assess skin daily using assessment tool. and Nursing will place on Skin Breakdown Precautions as indicated. Pain: Clinical staff will assess patient's pain level per protocol., Medicationswill be given, if needed, and the pain level reassessed. and Other methods: Massage, distraction, decrease stimulus, etc. used PRN. Plan of Care Patient requires physician specializing in physical medicine and rehab oversightto provide close medical supervision of rehab issues including: Pain Management,Sleep Problems, Bowel and Bladder, Medical and co-morbidity Management, DVT prophylaxis, Rehabilitation Leadership and Coordination of treatment team Patient needs Physical Therapy: For a minimum of 1 hour and At least 5 out of 7 days Patient needs Physical Therapy to improve:: Mobility, Strengthening, Transfers, Stretching, ROM, Endurance, Stairs, Gait and Balance Patient needs Occupational Therapy: For a minimum of 1 hour and At least 5 out of 7 days Patient needs Occupational Therapy to improve ADL's incl.: Eating, Grooming, Bathing, Dressing, Toileting, Toilet transfers, Community Reintegration, Higher functioning activities, Household tasks, Adaptive Equipment, Splinting and Otheractivities as determined Patient requires 24/7 Rehabilitation Nursing for: Pain Issues, Identifying and preventing risk factors, Monitoring and reporting current medical conditions, Assisting with ambulation, transfer, and all ADL's, Teaching patients about disease process and medications, Family teaching, Providing safe environment, Bowel and Bladder Issues, Skin integrity and Medication Management Patient needs Helminthology Teacher/ Case Management for: Discharge Planning, Arranging Home Equipment or Services and Family Interventions Patient needs Dietary and Nutrition Services for: Adequate Nutrition, Nutritional Supplements and Nutritional Education Goals Goals Patient will remain: free from falls Patient will perform eating at: MOD I level of assist. Patient will perform bed mobility at: MOD I level of assist. Patient will complete transfers from bed to chair at: MOD I level of assist. Patient will ambulate: - (165 feet with least restrictive device at supervision on various surfaces) Patient will complete upper body dressing at: MOD I level of assist. Patient will complete lower body dressing at: MOD I level of assist. (With adaptive equipment as needed) Patient will complete toilet transfer at: MOD I level of assist. Patient will complete toileting at: MOD I level of assist. Patient will perform bathing at: - (She will complete upper body bathing independently and lower body bathing at mod I with adaptive equipment as needed.) Patient will perform Tub/Shower transfer at: - (Supervision using DME as needed) Patient will complete grooming at: MOD I level of assist. Patient will complete home management skills at: MOD I level of assist. Patient will achieve: - (2 steps with 1 handrail at standby assist) Patient will have pain level of: of 3 or less Patient's skin will: remain intact Patient will receive: adequate nutrition. Discharge Planning Pt Prognosis for Sig. Practical Improv. w/in Reasonable Time: Good Estimated Length of stay (days): 21 Anticipated D/C Destination: Home with Outpt Therapy Was Preadmission Assessment Accurate?: Yes 12/04/24 174 <Electronically signed by Radha Munoz DO> Cosigner Signature (if applicable): CC: ~ Signed [facility] Work Phone: 1(380) 824-122808-04-2025 History and physical note Author [facility] [email or web address] [facility] Note Date/Time December 04, 2024 5:3 6pm [facility] Medical Records Department [address] [place] [address] History & Physical Exam 12/04/24 1159 MR#: [id number] Acct: [id number] Name: MICHAEL MEIER [place] Rep #:[id number] : 1940 84 From: Radha Munoz DO PCP: Dr. Michael Puga, DO Status:AD M IN Location: [place] [address]1 HPI - General General Date of Admission: 12/03/24 Date of Service: 12/04/24 Chief Complaint: Debility secondary to generalized weakness and tremors of the lower extremities with gait instability. 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 Initial blood pressure in the emergency room was 229/78. A stat noncontrast CT brain showed no acute process. She could not have a MRI of the brain due to incompatibility with her pacemaker. She had a follow-up CT brain on 11/30/2024 and it showed no acute abnormalities. TTE on 11/29/24 showed moderate concentric left ventricular hypertrophy with normal left ventricular systolic function. EF was estimated at 60% and there are no regional wall motion abnormalities. The right ventricle is of normal size with normal systolic function. The left atrium was mildly enlarged and theright atrium was normal. PA systolic was estimated at 65 mmHg which is consistent with moderate pulmonary hypertension. There is 2+ TR. Significant lab in the hospital included a HGB of 10.6, down from 12.4 on 10/31/2024 and a sodium of 127 on 12/03/2024 which was down from 133 at admission to the hospital. A TSH was normal. She did not have serum osmolalities, urine sodium, urine creatinine or urine urea done. Consult was obtained with neurology who had no acute recommendations other than PT/OT. She was seen by PT/OT and admission to acute rehab was recommended. She was transferred to the acute inpt rehab unit at [facility] on 12/03/24 for 3 hours of therapy daily to restore function/independence at or near her level prior to admission the the hospital. All lab from this morning is personally reviewed. Hemoglobin today is 9.8, downfrom 12.4 on 10/31/2024. She has not had a Hemoccult stool. White blood cell count is normal and platelets are also normal. MCV is 90. RDW is mildly increased at 48.6. Sodium today is 129 and the BUN is 32 with a creatinine of 1.02. BUN/creatinine ratio is elevated at 31.5. Creatinine clearance is estimated at 37.6 and the GFR is 55. Calcium, phosphorus and magnesium are all normal. LFTs are unremarkable. Tox screen at admission was positive for benzodiazepines. She takes as needed Ativan for anxiety. Recent hemoglobin A1c was mildly increased at 5.7. Recent TSH was normal at 2.1. She takes levothyroxine 50 mcg daily. On 11/13/2024 she had a prescription for gabapentin 100 mg #60 and lorazepam 0.5 mg #[address] Michael Puga. She was staking Prednisone for her breathing and at one point was taking 20 mg a day and then decreased to 10 mg daily. Shehas been getting 10 mg daily while in the hospital. She is on palliative care and recently was seen by Portia Mata on 11/06/2024 and that note states she had stopped the Prednisone but, Michael thinks she was still taking [facility]. She has gained a of wt since she has been on Prednisone. It looks to me like she has gained about 20 lbs since May. Was also taking ropinirole at bedtime for restless leg prescribed by PCP. Michael tells me that she has trouble sleeping at night. She will often get up and go sleep in her recliner....she does not wear CPAP in the recliner. When she naps during the day she does not wear her CPAP. About a month ago the dose of the Paxil was increased. About the same time Gabapentin was added to the drug regimen. She started with 100 gm and then increased by 100 mg every week and at admission to the hospital she had just increased to 300 mg at . She c/o pain in the low back. She does not have pain in the RLE unless you squeeze the calf. She has some numbness in the RLE. The tremors just started a few days prior to admission to the hospital. She tells me that she has never seen pain management and she has never had an epidural. The pain in the back increases with standing/bearing weight. She complains of feeling tired all thetime and having no motivation. Tells me that the antidepressants do not help. She takes Ativan in the morning every morning recently because she thinks it helps with anxiety about being SOB. She was scheduled to have a nuclear stress test in the near future but she will be in the hospital. Her last visit with Cardiology was 11/02/24. [facility] Medical History Hypothyroidism Tricuspid regurgitation Left atrial enlargement Moderate left ventricular hypertrophy Frequent falls CHF (congestive heart failure) Encounter for monitoring diuretic therapy 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 Right carotid bruit Pulmonary hypertension TIA (transient ischemic attack) (12/2018) GI bleed (2018) Essential (primary) hypertension Osteoarthritis Anxiety Daytime somnolence Dysmetabolic syndrome X Allergic rhinitis Malignant melanoma of skin of trunk, except scrotum Hyperlipidemia FH: sudden cardiac (SCD) Depression Paroxysmal atrial fibrillation Sick sinus syndrome Carotid artery disease Home Medications ?Medication ?Instructions ?Recorded ?Last Taken ?Type aspirin 81 mg tablet,delayed 81 mg PO QDAY heart healt h #90 tabs 12/27/18 12/03/24 Rx release (Adult Low Dose Aspirin) coenzyme [...] drp EACH EYE Q12H eye health 09/27/23 12/03/24 History dropperette (Restasis) albuterol sulfate 90 mcg/actuation 2 puff inhalation Q 6H PRN 10/02/23 Unknown Rx aerosol inhaler (ProAir HFA) shortness of breath or wh eezing #6.7 grams levothyroxine 50 mcg capsule 50 mcg PO QDAY Thyroid 12/03/24 History spironolactone 25 mg tablet 25 mg PO DAILY fluid reten tion #30 01/25/24 Unknown Rx Held on 12/03/24. tabs Instructions: Resume on 12/06/24. fluticasone propionate 110 1 inh inhalation Q12H SOB/W heezing 04/30/24 12/03/24 History mcg/actuation HFA aerosol inhaler meloxicam 15 mg tablet 15 mg PO DAILY Joint pain Unknown History vitamin B complex (Balanced B-50 1 tab PO DAILY supple ment 04/30/24 Unknown History tablet) Held on 12/04/24. Instructions: MD Ordered diltiazem HCl 240 mg 240 mg PO QHS heart #90 caps 05/15/24 12/02/24 Rx capsule,extended release 24 hr furosemide 20 mg tablet 20 mg PO QDAY fluid retentio n 07/06/24 Unknown History Held on 12/03/24. Instructions: Resume on 12/06/24. amiodarone 200 mg tablet 200 mg PO DAILY heart #90 ta bs 07/20/24 Unknown Rx losartan 100 mg tablet 100 mg PO DAILY blood pressu re #90 09/11/24 12/03/24 Rx tabs azelastine 0.05 % eye drops 1 drp ophthalmic (eye) BID PRN eye 11/02/24 Unknown History drops omeprazole 20 mg capsule,delayed 20 mg PO QDAY GERD Unknown History release paroxetine HCl 40 mg tablet 40 mg PO QDAY Depression 0 11/02/24 Unknown History prednisone 10 mg tablet 10 mg PO DAILY steriod 11/29 Unknown History gabapentin 100 mg capsule 300 mg (3 x 100 mg) PO QHS 0 12/03/24 Unknown Rx neuropathy #12 caps hydralazine 50 mg tablet 50 mg PO TID BP #0 tabs 08/0 07/2512/03/24 Rx lorazepam 0.5 mg tablet 0.5 mg PO BID PRN PRN Anxiet y #6 12/03/24 12/02/24 Rx tabs Allergy/AdvReac Type Severity Reaction Status Date / [...] total left knee replacement (TKR) Social History (Updated 12/04/24 @ 17:[address] Radha Munoz DO) household members: none housing: house Smoking Status: Never smoker alcohol intake: never substance use type: does not use caffeine: Yes what type of physical activity do you participate in: none seatbelt use: always ROS Constitutional Constitutional: Reports change in weight, fatigue, weakness and weight gain; Denies anorexia, chills, fever(s) or night sweats Eyes Eyes: Denies blurry vision, change in vision, eye pain or loss of vision ENT HEENT: Denies abnormal hearing, dysphagia, headache(s), hearing loss, nasal congestion or sore throat Cardiovascular Cardiovascular: Reports dyspnea on exertion; Denies chest pain, edema, lightheadedness, orthopnea, palpitations, paroxysmal nocturnal dyspnea or syncope Respiratory/Chest Respiratory/Chest: Reports dyspnea on exertion, shortness of breath with exertion and other Details: Has JOSE and is not always compliant with CPAP. ; Denies cough, dyspnea, portable oxygen @ home, productive cough, shortness of breath at rest or wheezing Gastrointestinal Gastrointestinal: Denies abdominal pain, constipation, diarrhea, dyspepsia, hematemesis, hematochezia, nausea or vomiting Genitourinary Genitourinary: Reports nocturia; Denies dysuria, hematuria, urinary frequency, urinary hesitancy, urinary incontinence or urinary urgency Musculoskeletal Musculoskeletal: Reports back pain, difficulty walking, muscle weakness, numbness, tremors and other Details: R foot drop - chronic ; Denies joint pain, joint swelling or neck pain Integumentary Integumentary: Denies jaundice, pruritus, rash or wounds Neurologic Neurologic: Reports disequilibrium, dizziness, numbness, tingling and tremor(s);Denies confusion, focal weakness, headache(s), paresthesias or seizures Psychiatric Psychiatric: Reports anxiety, depression and difficulty concentrating; Denies homicidal ideation, irritability, mood swings, suicidal ideation or visual hallucinations Endocrine Endocrinology: Denies change in body appearance, polydipsia or polyuria Hematologic/Lymphatic Hematologic/Lymphatic: Reports easy bruising; Denies easy bleeding or lymphadenopathy Allergic/Immunologic Allergic/Immunologic: Denies rhinitis, eczemia or asthma Vital Signs Vital Signs Vital Signs: 12/03/24 16:45 12/03/24 17:26 12/03/24 17:37 Temperature 97.7 F L 97.7 F L Temperature Source Temporal Temporal Pulse Rate 59 L 59 L Respiratory Rate 16 16 Respiratory Effort Normal Non-Labored Respiratory Depth Normal Respiratory Pattern Normal Blood Pressure 152/59 H 152/59 H Blood Pressure Mean 90 90 Blood Pressure Source Monitor Blood Pressure Position Semi-Fowlers Semi-Fowlers Blood Pressure Location Right Arm Right Arm Pulse Ox 94 94 Oxygen Delivery Method Room Air Room Air 12/03/24 20:30 12/03/24 22:10 12/03/24 22:26 Temperature Temperature Source Pulse Rate 61 Respiratory Rate Respiratory Effort Normal Non-Labored Respiratory Depth Respiratory Pattern Blood Pressure 160/58 H Blood Pressure Mean Blood Pressure Source Blood Pressure Position Blood Pressure Location Pulse Ox Oxygen Delivery Method Room Air Room Air 12/04/24 05:28 12/04/24 05:32 12/04/24 09:20 Temperature 97 F L Temperature Source Oral Pulse Rate 62 62 Respiratory Rate 16 Respiratory Effort Respiratory Depth Respiratory Pattern Blood Pressure 123/40 H 123/40 H Blood Pressure Mean 67 Blood Pressure Source Monitor Blood Pressure Position Semi-Fowlers Blood Pressure Location Left Arm Pulse Ox 94 Oxygen Delivery Method Room Air Room Air Weight Weight: 143 lb Body Mass Index (BMI) 23.8 Physical Exam Const alert, oriented x3 and no apparent distress General Appearance: cooperative, comfortable and well kempt HEENT normocephalic, head/scalp atraumatic and hearing grossly normal bilaterally HEENT Narrative: Dry MM. No thrush. Eyes PERRL, EOMs intact bilaterally, conjunctivae normal and no scleral icterus Eyes Narrative: No discharge from the eyes. Neck supple, No nodes and no carotid bruits Chest Chest: symmetrical chest wall rise Resp normal respiratory effort and normal air movement Resp Narrative: Lungs are clear to auscultation with good air exchange throughout. Effort and Inspection: able to speak in complete sentences Cardio regular rate, regular rhythm, no murmurs, no rub and no gallops Cardio Narrative: No ectopy GI normal to inspection, nondistended, normoactive bowel sounds, soft to palpation and non-tender no CVA tenderness Back/Spine Back/Spine Narrative: She has pain in the low back in the BL paravertebral areas, oriana just above the iliac crest. No openings in the skin and no redness. Negative SLR BL. She hasallodynia in the R calf with light stroking of the skin but, oliveira I am not touching her she has no pain. Extremity no calf tenderness and no pedal edema Extremity Narrative: DP and PT pulses are 2+ in both feet. Both feet are warm to touch. Skin Rashes: no rashes Neuro oriented x3, CN's II-XII intact bilaterally, moves all extremities and no focal motor deficits Neuro Narrative: paresthesias of the RLE and Allodynia R calf. Negative SLR. No tremors when I examined her.....she was lying in bed and was comfortable. Psych mental status grossly normal, thought process normal, cooperative, affect normaland speech normal Appearance: grossly normal and appropriate Attitude: calm and engaged Activity / Motor Behavior: appropriate eye contact Speech: normal speech Mood & Affect: Negative for depressed or anxious Results Lab / Micro Data 12/04/24 05:24 12/04/24 05:24 Labs: Laboratory Results - last 24 hr 12/04/24 05:24: WBC 8.4, RBC 3.21 L, Hgb 9.8 L, Hct 28.9 L, MCV 90.0, MCH 30.5, MCHC 33.9, RDW Std Deviation 48.6 H, RDW Coeff of Chandu 14.6, Plt Count 177, MPV 10.2, Immature Gran % (Auto) 0.600, Neut % (Auto) 69.7, Lymph % (Auto) 13.8 L, [place] % (Auto) 11.9 H, Eos % (Auto) 3.2, Baso % (Auto) 0.8, Absolute Neuts (auto) 5.9, Absolute Lymphs (auto) 1.16, Nucleated RBC % 0, Sodium 129 L, Potassium 4.7, Chloride 96 L, Carbon Dioxide 23.6, Anion Gap 9, BUN 32 H, Creatinine 1.02,Estim Creat Clear Calc 37.60 L, Est GFR (MDRD) Non-Af 55 L, BUN/Creatinine Ratio31.5 H, Glucose 100 H, Calcium 8.5, Phosphorus 3.4, Magnesium 2.3 H, Total Bilirubin 0.41, AST 25, ALT 27, Alkaline Phosphatase 55, Total Protein 5.3 L, Albumin 3.4, Globulin 1.9 L, Albumin/Globulin Ratio 1.8 Assessment & Plan Assessment/Plan (1) Debility: (2) Generalized weakness: (3) Disequilibrium: (4) Tremor: (5) Hyponatremia: (6) Normochromic normocytic anemia: (7) Moderate left ventricular hypertrophy: (8) Pulmonary hypertension: (9) Tricuspid regurgitation: (10) Left atrial enlargement: (11) Morbid obesity with BMI of 40.0-44.9, adult: (12) MCC current use of amiodarone: (13) History of permanent cardiac pacemaker placement: (14) Paroxysmal atrial fibrillation: (15) Hypothyroidism: QUALIFIERS: Hypothyroidism type: unspecified Qualified Code(s): E03.9 - Hypothyroidism, unspecified (16) Essential (primary) hypertension: (17) Hyperlipidemia: QUALIFIERS: Hyperlipidemia type: pure hypercholesterolemia Qualified Code(s): E78.00 - Pure hypercholesterolemia, unspecified; E78.0 - Pure hypercholesterolemia (18) TIA (transient ischemic attack): PLAN: Plan PLAN PT for gait stability OT for ADL's ST for evaluation Analgesics as needed Bowel protocol Fall precautions Assess for Anxiety/Depression GI prophylaxis -Protonix and sucralfate. History of GI bleeds. Taking meloxicam 15 mg daily. Also on aspirin 81 mg daily. DVT prophylaxis with heparin 5000 units SQ every 12 hours Follow up with PCP, Dr. Alcala, cardiology following DC from IP Rehab AM lab including CMP, CBC, Mag and Phos Lidocaine patch to the low back Serum osmolality, urine osmolality, urine urea, urine sodium A.m. cortisol Hold Paxil for 48 hours and then restart at a lower dose or consider using Sertraline instead since it causes less sedation and is less likely to cause tremors. Hold gabapentin - she has no radicular pain at this time Decrease the Ativan to 0.25 mg daily in the AM and DC in a few days. Overnight trending pulse ox WHILE WEARING CPAP. I reinforced with her that she is to wear CPAP ANYTIME she is sleeping or napping. Check a Hemoccult stool Change the diet to an 1800-calorie cardiac diet I suspect the tremors are related to high dose Paxil in an elderly person with stage 3A CRF. Suspect hyponatremia is also related to Paxil. She tells everyone she is depressed because she has chronic fatigue and is not motivated to do anything BUT, she is not compliant with CPAP and I suspect she is chronically sleep deprived. She is making good eye contact with me and she is pleasant. She does not have a depressed affect and she also does not appear anxious. She likely gets SOB with exertion because she is mostly sedentary and has poor exercise tolerance coupled with moderate pulmonary HTN and class 3 obesity. She is also on a few sedating medications which are likely contributing to drowsiness during the day. I am worried about chronic use of Meloxicam due to the hx of GI bleeds in the past and the declining HGB. May need to DC. She has chronic back pain that needs to be treated without making her more sedated. Weight loss was advised. Would like to get her off steroids because I do not think they are helping her breathing and they are likely contributing to wt gain. She wants to lose weight and needs help. Charges/Coding Visit Charges Inpatient E&M: 70626 Init Hosp L3 12/04/24 2035 <Electronically signed by Radha Munoz DO> Cosigner Signature (if applicable): CC: Dr. Michael Puga DO; Dr. Radha Munoz DO; Dr. Owen Alcala MD; NIDA Katz~ Signed [facility] Work Phone: [phone] 545-711308-04-2025 History and physical note [facility] Medical Records Department [address] [place] [address] Post Admission Physician Pito 12/04/24 1736 MR#: [id number] Acct: [id number] Name: MICHAEL MEIER Rep #:[id number] : 1940 84 From: Radha Munoz DO PCP: Dr. Michael Puga, DO Status:AD M IN Location: [place] [address] Admission Information Primary Diagnosis:: Debility due to disequilibrium and tremors of extremities. Status Changes from Prescreening?: No changes Identified Actual Problem List:: Falls, Pain, ALteration in Cmfrt, Depression, Alteration in Sleep, Mobility Impaired, Self Care Deficit, BP, Hypertension, Alteration/ Air Exchange, Fluid Change-Dehydration andAlteration-Leisure Activ. Potential Problem List:: DVT, Bleeding, Infection, UTI, Aspiration, Falls, Skin Integrity and Depression Risk of Complications DVT: JONATAN Hose and - (Heparin 5000 units SQ every 12 hours) Bleeding: Monitor Lab Values, Nursing to Teach Precautions for anti-coagulation therapy., Wound, ifapplicable, to be assessed every shift. and Stroke patients assessed for lethargy or change in status. Infection: Clinical Staff to Monitor for S/S of infection: and S/S of infection include fever, redness, warmth, etc. Urinary Tract Infection: Monitor for frequency, burning, discomfort, or incontinence. and Nursing will obtain urine sample for urinalysis and C&S when ordered. Aspiration: Clinical staff will monitor for coughing, drooling, congestion., Speech will evaluate swallowing and dsyphasia. and Nursing will monitor patient swallowing during meals. Falls: Patient will be evaluated for Fall Precautions and Patient will be placedon Fall Precautionsas indicated per protocol. Skin Breakdown: Nursing will assess skin daily using assessment tool. and Nursing will place on Skin Breakdown Precautions as indicated. Pain: Clinical staff will assess patient's pain level per protocol., Medicationswill be given, if needed, and the pain level reassessed. and Other methods: Massage, distraction, decrease stimulus, etc. used PRN. Plan of Care Patient requires physician specializing in physical medicine and rehab oversightto provide close medical supervision of rehab issues including: Pain Management,Sleep Problems, Bowel and Bladder, Medical and co-morbidity Management, DVT prophylaxis, Rehabilitation Leadership and Coordination of treat ment team Patient needs Physical Therapy: For a minimum of 1 hour and At least 5 out of 7 days Patient needs Physical Therapy to improve:: Mobility, Strengthening, Transfers, Stretching, ROM, Endurance, Stairs, Gait and Balance Patient needs Occupational Therapy: For a minimum of 1 hour and At least 5 out of 7 days Patient needs Occupational Therapy to improve ADL's incl.: Eating, Grooming, Bathing, Dressing, Toileting, Toilet transfers, Community Reintegration, Higher functioning activities, Household tasks, Adaptive Equipment, Splinting and Otheractivities as determined Patient requires 24/ Rehabilitation Nursing for: Pain Issues, Identifying and preventing risk factors, Monitoring and reporting current medical conditions, Assisting with ambulation, transfer, and all ADL's, Teaching patients about disease process and medications, Family teaching, Providing safe environment, Bowel and Bladder Issues, Skin integrity and Medication Management Patient needs Helminthology Teacher/ Case Management for: Discharge Planning, Arranging Home Equipment orServices and Family Interventions Patient needs Dietary and Nutrition Services for: Adequate Nutrition, Nutritional Supplements and Nutritional Education Goals Goals Patient will remain: free from falls Patient will perform eating at: MOD I level of assist. Patient will perform bed mobility at: MOD I level of assist. Patient will complete transfers from bed to chair at: MOD I level of assist. Patient will ambulate: - (165 feet with least restrictive device at supervision on various surfaces) Patient will complete upper body dressing at: MOD I level of assist. Patient will complete lower body dressing at: MOD I level of assist. (With adaptive equipment as needed) Patient will complete toilet transfer at: MOD I level of assist. Patient will complete toileting at: MOD I level of assist. Patient will perform bathing at: - (She will complete upper body bathing independently and lower body bathing at mod I with adaptive equipment as needed.) Patient will perform Tub/Shower transfer at: - (Supervision using DME as needed) Patient will complete grooming at: MOD I level of assist. Patient will complete home management skills at: MOD I level of assist. Patient will achieve: - (2 steps with 1 handrail at standby assist) Patient will have pain level of: of 3 or less Patient's skin will: remain intact Patient will receive: adequate nutrition. Discharge Planning Pt Prognosis for Sig. Practical Improv. w/in Reasonable Time: Good Estimated Length of stay (days): 21 Anticipated D/C Destination: Home with Outpt Therapy Was Preadmission Assessment Accurate?: Yes 12/04/24 1741 Cosigner Signature (if applicable): CC: ~ Signed [facility]08-04-2025 History and physical note [facility] Medical Records Department [address] [place] [address] History & Physical Exam 12/04/24 1159 MR#: [id number] Acct: [id number] Name: MICHAEL MEIER Rep #:[id number] : 1940 84 From: Radha Munoz DO PCP: Dr. Michael Puga, DO Status:AD M IN Location: [place] [id number] HPI - General General Date of Admission: 12/03/24 Date of Service: 12/04/24 Chief Complaint: Debility secondary to generalized weakness and tremors of the lower extremities with gait instability. 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 Initial blood pressure in the emergency room was 229/78. A stat noncontrast CT brain showed no acute process. She could not have a MRI of the brain due to incompatibility with her pacemaker. She had a follow-up CT brain on 11/30/2024 and it showed no acute abnormalities. TTE on 11/29/24 showed moderate concentric left ventricular hypertrophy with normal left ventricular systolic function. EF was estimated at 60% and there are no regional wall motion abnormalities. The right ventricle is of normal size with normal systolic function. The left atrium was mildly enlarged and theright atrium was normal. PA systolic was estimated at 65 mmHg which is consistent with moderate pulmonary hypertension. There is 2+ TR. Significant lab in the hospital included a HGB of 10.6, down from 12.4 on 10/31/2024 and a sodium of 127 on12/03/2024 which was down from 133 at admission to the hospital. A TSH was normal. She did not have serum osmolalities, urine sodium, urine creatinine or urine urea done. Consult was obtained with neurology who had no acute recommendations other than PT/OT. She was seen by PT/OT and admission to acute rehab was recommended. She was transferred to the acute inpt rehab unit at [facility] on 12/03/24 for 3 hours of therapy daily to restore function/independence at or near her level [facility] All lab from this morning is personally reviewed. Hemoglobin today is 9.8, downfrom 12.4 on 10/31/2024. She has not had a Hemoccult stool. White blood cell count is normal and platelets are also normal. MCV is 90. RDW is mildly increased at 48.6. Sodium today is 129 and the BUN is 32 with a creatinine of 1.02. BUN/creatinine ratio is elevated at 31.5. Creatinine clearance is estimated at 37.6 and the GFR is 55. Calcium, phosphorus and magnesium are all normal. LFTs are unremarkable. Tox screen at admission was positive for benzodiazepines. She takes as needed Ativan for anxiety. Recent hemoglobin A1c was mildly increased at 5.7. Recent TSH was normal at 2.1. She takes levothyroxine 50 mcg daily. On 11/13/2024 she had a prescription for gabapentin 100 mg #60 and lorazepam 0.5 mg #[address] Michael Puga. She was staking Prednisone for her breathing and at one point was taking 20 mg a day and then decreased to 10 mg daily. Shehas been getting 10 mg daily while in the hospital. She is on palliative care and recently was seen by Portia Mata on 11/06/2024 and that note states she had stopped the Prednisone but, Michael thinks she was still taking [facility]. She has gained a of wt since she has been on Prednisone. It looks to me like she has gained about 20 lbs since May. Was also taking ropinirole at bedtime for restless leg prescribed by PCP. Michael tells me that she has trouble sleeping at night. She will often get up and go sleep in her recliner....she does not wear CPAP in the recliner. When she naps during the day she does not wear herCPAP. About a month ago the dose of the Paxil was increased. About the same time Gabapentin was added to the drug regimen. She started with 100 gm and then increased by 100 mg every week and at admission to the hospital she had just increased to 300 mg at HS. She c/o pain in the low back. She does not have pain in the RLE unless you squeeze the calf. She has some numbness in the RLE. The tremors just started a few days prior to admission to the hospital. She tells me that she has never seen pain management and she has never had an epidural. The pain in the back increases with standing/bearingweight. She complains of feeling tired all thetime and having no motivation. Tells me that the antidepressants do not help. She takes Ativan in the morning every morning recently because she thinks it helps with anxiety about being SOB. She was scheduled to have a nuclear stress test in the near future but she will be in the hospital.Her last visit with Cardiology was 11/02/24. [facility] Medical History Hypothyroidism Tricuspid regurgitation Left atrial enlargement Moderate left ventricular hypertrophy Frequent falls CHF (congestive heart failure) Encounter for monitoring diuretic therapy 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 Right carotid bruit Pulmonary hypertension TIA (transient ischemic attack) (12/2018) GI bleed (2018) Essential (primary) hypertension Osteoarthritis Anxiety Daytime somnolence Dysmetabolic syndrome X Allergic rhinitis Malignant melanoma of skin of trunk, except scrotum Hyperlipidemia FH: sudden cardiac (SCD) Depression Paroxysmal atrial fibrillation Sick sinus syndrome Carotid artery disease Home Medications ?Medication ?Instructions ?Recorded ?Last Taken ?Type aspirin 81 mg tablet,delayed 81 mg PO QDAY heart healt h #90 tabs 12/27/18 12/03/24 Rx release (Adult Low Dose Aspirin) coenzyme [...] drp EACH EYE Q12H eye health 09/27/23 12/03/24 History dropperette (Restasis) albuterol sulfate 90 mcg/actuation 2 puff inhalation Q 6H PRN 10/02/23 Unknown Rx aerosol inhaler (ProAir HFA) shortness of breath or wh eezing #6.7 grams levothyroxine 50 mcg capsule 50 mcg PO QDAY Thyroid 12/03/24 History spironolactone 25 mg tablet 25 mg PO DAILY fluid reten tion #30 01/25/24 Unknown Rx Held on 12/03/24. tabs Instructions: Resume on 12/06/24. fluticasone propionate 110 1 inh inhalation Q12H SOB/W heezing 04/30/24 12/03/24 History mcg/actuation HFA aerosol inhaler meloxicam 15 mg tablet 15 mg PO DAILY Joint pain Unknown History vitamin B complex (Balanced B-50 1 tab PO DAILY supple ment 04/30/24 Unknown History tablet) Held on 12/04/24. Instructions: Ordered diltiazem HCl 240 mg 240 mg PO QHS heart #90 caps 05/15/24 12/02/24 Rx capsule,extended release 24 hr furosemide 20 mg tablet 20 mg PO QDAY fluid retentio n 07/06/24 Unknown History Held on 12/03/24. Instructions: Resume on 12/06/24. amiodarone 200 mg tablet 200 mg PO DAILY heart #90 ta bs 07/20/24 Unknown Rx losartan 100 mg tablet 100 mg PO DAILY blood pressu re #90 09/11/24 12/03/24 Rx tabs azelastine 0.05 % eye drops 1 drp ophthalmic (eye) BID PRN eye 11/02/24 Unknown History drops omeprazole 20 mg capsule,delayed 20 mg PO QDAY GERD Unknown History release paroxetine HCl 40 mg tablet 40 mg PO QDAY Depression 0 11/02/24 Unknown History prednisone 10 mg tablet 10 mg PO DAILY steriod 11/29 Unknown History gabapentin 100 mg capsule 300 mg (3 x 100 mg) PO QHS 0 12/03/24 Unknown Rx neuropathy #12 caps hydralazine 50 mg tablet 50 mg PO TID BP #0 tabs 08/0 07/2512/03/24 Rx lorazepam 0.5 mg tablet 0.5 mg PO BID PRN PRN Anxiet y #6 12/03/24 12/02/24 Rx tabs Allergy/AdvReac Type Severity Reaction Status Date / [...] total left knee replacement (TKR) Social History (Updated 12/04/24 @ 17:[address] Radha Munoz DO) household members: none housing: house Smoking Status: Never smoker alcohol intake: never substance use type: does not use caffeine: Yes what type of physical activity do you participate in: none seatbelt use: always ROS Constitutional Constitutional: Reports change in weight, fatigue, weakness and weight gain; Denies anorexia, chills, fever(s) or night sweats Eyes Eyes: Denies blurry vision, change in vision, eye pain or loss of vision ENT HEENT: Denies abnormal hearing, dysphagia, headache(s), hearing loss, nasal congestion or sore throat Cardiovascular Cardiovascular: Reports dyspnea on exertion; Denies chest pain, edema, lightheadedness, orthopnea, palpitations, paroxysmal nocturnal dyspnea or syncope Respiratory/Chest Respiratory/Chest: Reports dyspnea on exertion, shortness of breath with exertion and other Details: Has JOSE and is not always compliant with CPAP. ; Denies cough, dyspnea, portable oxygen @ home, productive cough, shortness of breath at rest or wheezing Gastrointestinal Gastrointestinal: Denies abdominal pain, constipation, diarrhea, dyspepsia, hematemesis, hematochezia, nausea or vomiting Genitourinary Genitourinary: Reports nocturia; Denies dysuria, hematuria, urinary frequency, urinary hesitancy, urinary incontinence or urinary urgency Musculoskeletal Musculoskeletal: Reports back pain, difficulty walking, muscle weakness, numbness, tremors and other Details: R foot drop - chronic ; Denies joint pain, joint swelling or neck pain Integumentary Integumentary: Denies jaundice, pruritus, rash or wounds Neurologic Neurologic: Reports disequilibrium, dizziness, numbness, tingling and tremor(s);Denies confusion, focal weakness, headache(s), paresthesias or seizures Psychiatric Psychiatric: Reports anxiety, depression and difficulty concentrating; Denies homicidal ideation, irritability, mood swings, suicidal ideation or visual hallucinations Endocrine Endocrinology: Denies change in body appearance, polydipsia or polyuria Hematologic/Lymphatic Hematologic/Lymphatic: Reports easy bruising; Denies easy bleeding or lymphadenopathy Allergic/Immunologic Allergic/Immunologic: Denies rhinitis, eczemia or asthma Vital Signs Vital Signs Vital Signs: 12/03/24 16:45 12/03/24 17:26 12/03/24 17:37 Temperature 97.7 F L 97.7 F L Temperature Source Temporal Temporal Pulse Rate 59 L 59 L Respiratory Rate 16 16 Respiratory Effort Normal Non-Labored Respiratory Depth Normal Respiratory Pattern Normal Blood Pressure 152/59 H 152/59 H Blood Pressure Mean 90 90 Blood Pressure Source Monitor Blood Pressure Position Semi-Fowlers Semi-Fowlers Blood Pressure Location Right Arm Right Arm Pulse Ox 94 94 Oxygen Delivery Method Room Air Room Air 12/03/24 20:30 12/03/24 22:10 12/03/24 22:26 Temperature Temperature Source Pulse Rate 61 Respiratory Rate Respiratory Effort Normal Non-Labored Respiratory Depth Respiratory Pattern Blood Pressure 160/58 H Blood Pressure Mean Blood Pressure Source Blood Pressure Position Blood Pressure Location Pulse Ox Oxygen Delivery Method Room Air Room Air 12/04/24 05:28 12/04/24 05:32 12/04/24 09:20 Temperature 97 F L Temperature Source Oral Pulse Rate 62 62 Respiratory Rate 16 Respiratory Effort Respiratory Depth Respiratory Pattern Blood Pressure 123/40 H 123/40 H Blood Pressure Mean 67 Blood Pressure Source Monitor Blood Pressure Position Semi-Fowlers Blood Pressure Location Left Arm Pulse Ox 94 Oxygen Delivery Method Room Air Room Air Weight Weight: 143 lb Body Mass Index (BMI) 23.8 Physical Exam Const alert, oriented x3 and no apparent distress General Appearance: cooperative, comfortable and well kempt HEENT normocephalic, head/scalp atraumatic and hearing grossly normal bilaterally HEENT Narrative: Dry MM. No thrush. Eyes PERRL, EOMs intact bilaterally, conjunctivae normal and no scleral icterus Eyes Narrative: No discharge from the eyes. Neck supple, No nodes and no carotid bruits Chest Chest: symmetrical chest wall rise Resp normal respiratory effort and normal air movement Resp Narrative: Lungs are clear to auscultation with good air exchange throughout. Effort and Inspection: able to speak in complete sentences Cardio regular rate, regular rhythm, no murmurs, no rub and no gallops Cardio Narrative: No ectopy GI normal to inspection, nondistended, normoactive bowel sounds, soft to palpation and non-tender no CVA tenderness Back/Spine Back/Spine Narrative: She has pain in the low back in the BL paravertebral areas, oriana just above the iliac crest. No openings in the skin and no redness. Negative SLR BL. She hasallodynia in the R calf with light strokingof the skin but, oliveira I am not touching her she has no pain. Extremity no calf tenderness and no pedal edema Extremity Narrative: DP and PT pulses are 2+ in both feet. Both feet are warm to touch. Skin Rashes: no rashes Neuro oriented x3, CN's II-XII intact bilaterally, moves all extremities and no focal motor deficits Neuro Narrative: paresthesias of the RLE and Allodynia R calf. Negative SLR. No tremors when I examined her.....she was lying in bed and was comfortable. Psych mental status grossly normal, thought process normal, cooperative, affect normaland speech normal Appearance: grossly normal and appropriate Attitude: calm and engaged Activity / Motor Behavior: appropriate eye contact Speech: normal speech Mood & Affect: Negative for depressed or anxious Results Lab / Micro Data 12/04/24 05:24 12/04/24 05:24 Labs: Laboratory Results - last 24 hr 12/04/24 05:24: WBC 8.4, RBC 3.21 L, Hgb 9.8 L, Hct 28.9 L, MCV 90.0, MCH 30.5, MCHC 33.9, RDW Std Deviation 48.6 H, RDW Coeff of Chandu 14.6, Plt Count 177, MPV 10.2, Immature Gran % (Auto) 0.600, Neut% (Auto) 69.7, Lymph % (Auto) 13.8 L, [place] % (Auto) 11.9 H, Eos % (Auto) 3.2, Baso % (Auto) 0.8, Absolute Neuts (auto) 5.9, Absolute Lymphs (auto) 1.16, Nucleated RBC % 0, Sodium 129 L, Potassium 4.7, Chloride 96 L, Carbon Dioxide 23.6, Anion Gap 9, BUN 32 H, Creatinine 1.02,Estim Creat Clear Calc 37.60 L, Est GFR (MDRD) Non-Af 55 L, BUN/Creatinine Ratio31.5 H, Glucose 100 H, Calcium 8.5, Phosphorus 3.4, Magnesium 2.3 H, Total Bilirubin 0.41, AST 25, ALT 27, Alkaline Phosphatase 55, Total Protein 5.3 L, Albumin 3.4, Globulin 1.9 L, Albumin/Globulin Ratio 1.8 Assessment & Plan Assessment/Plan (1) Debility: (2) Generalized weakness: (3) Disequilibrium: (4) Tremor: (5) Hyponatremia: (6) Normochromic normocytic anemia: (7) Moderate left ventricular hypertrophy: (8) Pulmonary hypertension: (9) Tricuspid regurgitation: (10) Left atrial enlargement: (11) Morbid obesity with BMI of 40.0-44.9, adult: (12) MCC current use of amiodarone: (13) History of permanent cardiac pacemaker placement: (14) Paroxysmal atrial fibrillation: (15) Hypothyroidism: QUALIFIERS: Hypothyroidism type: unspecified Qualified Code(s): E03.9 - Hypothyroidism, unspecified (16) Essential (primary) hypertension: (17) Hyperlipidemia: QUALIFIERS: Hyperlipidemia type: pure hypercholesterolemia Qualified Code(s): E78.00 - Pure hypercholesterolemia, unspecified; E78.0 - Pure hypercholesterolemia (18) TIA (transient ischemic attack): PLAN: Plan PLAN PT for gait stability OT for ADL's ST for evaluation Analgesics as needed Bowel protocol Fall precautions Assess for Anxiety/Depression GI prophylaxis -Protonix and sucralfate. History of GI bleeds. Taking meloxicam 15 mg daily. Also on aspirin 81 mg daily. DVT prophylaxis with heparin 5000 units SQ every 12 hours Follow up with PCP, Dr. Alcala, cardiology following DC from IP Rehab AM lab including CMP, CBC, Mag and Phos Lidocaine patch to the low back Serum osmolality, urine osmolality, urine urea, urine sodium A.m. cortisol Hold Paxil for 48 hours and then restart at a lower dose or consider using Sertraline instead sinceit causes less sedation and is less likely to cause tremors. Hold gabapentin - she has no radicular pain at this time Decrease the Ativan to 0.25 mg daily in the AM and DC in a few days. Overnight trending pulse ox WHILE WEARING CPAP. I reinforced with her that she is to wear CPAP ANYTIME she is sleeping or napping. Check a Hemoccult stool Change the diet to an 1800-calorie cardiac diet I suspect the tremors are related to high dose Paxil in an elderly person with stage 3A CRF. Suspect hyponatremia is also related to Paxil. She tells everyone she is depressed because she has chronicfatigue and is not motivated to do anything BUT, she is not compliant with CPAP and I suspect she is chronically sleep deprived. She is making good eye contact with me and she is pleasant. She does not have a depressed affect and she also does not appear anxious. She likely gets SOB with exertion because she is mostly sedentary and has poor exercise tolerance coupled with moderate pulmonary HTN and class 3 obesity. She is also on a few sedating medications which are likely contributing to drowsi ness during the day. I am worried about chronic use of Meloxicam due to the hx of GI bleeds in the past and the declining HGB. May need to DC. She has chronic back pain that needs to be treated without making her more sedated. Weight loss was advised. Would like to get her off steroids because I do not think they are helpingher breathing and they are likely contributing to wt gain. She wants to lose weight and needs help. Charges/Coding Visit Charges Inpatient E&M: 50256 Init Hosp L3 12/04/24 1736 Cosigner Signature (if applicable): CC: Dr. Michael Puga DO; Dr. Radha Munoz DO; Dr. Owen Alcala MD; NIDA Katz~ Signed [facility]08-04-2025 [facility] Discharge summary [facility] Medical Records Department [address] [place] [address] Instructions for Home/Discharge Instructions 12/03/24 1438 MR#: [id number] Acct: [id number] Name: MICHAEL MEIER Rep #:[id number] 3 : 1940 84 From: Waleska Phillips MD PCP: Dr. Michael Puga DO Status:AD M CORBY Discharge Instructions DC [...] please call Dr. Kelsey's office upon discharge toschedule an appointment for your tremors (ph [phone]) -Please call your primary care provider's office [...] can be placed): Inpatient Rehab Unit/Facility 12/03/24 1455Waleska Phillips MD CC: Dr. Tacho Davis DO; Dr. Michael Puga DO; Dr. Jonny Vicente MD ~ Signed [facility]08-03-2025 [facility]08-02-2025 Progress note Author Waleska Phillips [facility] Note Date/Time December 02, 2024 4:1 7pm [facility] Medical Records Department [address] [place] [address] Progress Note - Hospitalist 12/02/24 1614 MR#: [id number] Acct: [id number] Name: MICHAEL MEIER Rep #:[id number] 4 : 1940 84 From: Waleska Phillips MD PCP: Dr. Michael Puga DO Status:AD M CORBY [facility] Reason for Visit Chief Complaint: Right Upper [...] (Auto) 72.7 H, Lymph % (Auto) 11.2 L,[place] % (Auto) 11.7 H, Eos % (Auto) [...] DVT: SCDs Charges/Coding Visit Charges Inpatient E&M: 70195 Subs Hosp L1 12/02/24 1617 <Electronically signed by Waleska Phillips MD> Cosigner Signature (if applicable): CC: ~ Signed [facility] Work Phone: 1(348) 497-867408-02-2025 Progress note [facility] Medical Records Department [address] [place] [address] Progress Note - Hospitalist 12/02/24 1614 MR#: [id number] Acct: [id number] Name: MICHAEL MEIER Rep #:[id number] 4 : 1940 84 From: Waleska Phillips MD PCP: Dr. Michael Puga, DO Status:AD M CORBY Location: [place] [address] Reason for Visit Chief Complaint: Right Upper [...] (Auto) 72.7 H, Lymph % (Auto) 11.2 L,[place] % (Auto) 11.7 H, Eos % (Auto) [...] DVT: SCDs Charges/Coding Visit Charges Inpatient E&M: 57376 Subs Hosp L1 12/02/24 1617 Cosigner Signature (if applicable): CC: ~ Signed [facility]08-01-2025 Progress note Author Waleska Phillips [facility] Note Date/Time December 01, 2024 5:5 7pm [facility] Medical Records Department [address] [place] [address] Progress Note - Hospitalist 12/01/24 1451 MR#: [id number] Acct: [id number] Name: MICHAEL MEIER Rep #:[id number] 4 : 1940 84 From: Waleska Phillips MD PCP: Dr. Michael Puga, DO Status:AD M CORBY Location: [place] [address] Reason for Visit Chief Complaint: Right Upper [...] (Auto) 70.9 H, Lymph % (Auto) 13.0 L,[place] % (Auto) 12.3 H, Eos % (Auto) [...] deficits, cranial nerves II through XII intact, [id number] with some difficulty with left hand but [...] documentation, 43Minutes Charges/Coding Visit Charges Inpatient E&M: 30469 Subs Hosp L2 12/01/24 6104 <Electronically signed by Waleska Phillips MD> Cosigner Signature (if applicable): CC: ~ Signed [facility] Work Phone: 1(963) 502-824608-01-2025 Progress note [facility] Medical Records Department [address] [place] [address] Progress Note - Hospitalist 12/01/24 1451 MR#: [id number] Acct: [id number] Name: MICHAEL MEIER Rep #:[id number] 4 : 1940 84 From: Waleska Phillips MD PCP: Dr. Michael Puga, DO Status:AD M [facility] Location: [place] [address] Reason for Visit Chief Complaint: Right Upper [...] (Auto) 70.9 H, Lymph % (Auto) 13.0 L,[place] % (Auto) 12.3 H, Eos % (Auto) [...] deficits, cranial nerves II through XII intact, [id number] with some difficulty with left hand but [...] documentation, 43Minutes Charges/Coding Visit Charges Inpatient E&M: 12162 Subs Hosp L2 12/01/24 0301 Cosigner Signature (if applicable): CC: ~ Signed [facility]08-01-2025 Consult note Author Kyara Ponce [facility] Note Date/Time December 01, 2024 12: 49pm [facility] Medical Records Department [address] [place] [address] Consultation - Neurology 12/01/24 1243 MR#: [id number] Acct: [id number] Name: MICHAEL MEIER Rep #:[id number] 4 : 1940 84 From: Kyara Ponce MD PCP: Dr. Michael Puga, DO Status:AD M CORBY Location: [place] [address] Assessment and Plan: Neuro Assessment/Plan 84 F with a past medical history of essential hypertension, hyperlipidemia, hypothyroidism paroxysmal atrial fibrillation SSS; s/p PPM (2021), morbid obesity, JOSE, pulmonary hypertension, neuropathy; depression with anxiety OA whopresented to [facility] ER complaining of Right upper [...] neuropathy; depression with anxiety OA whopresented to [facility] ER complaining of Right upper [...] (Auto) 70.9 H, Lymph % (Auto) 13.0 L,[place] % (Auto) 12.3 H, Eos % (Auto) [...] IMPRESSION: No acute intracranial abnormality. Reading Location: [facility] Active Medications Active Medications Active Medications: Current [...] - 2 drp 11/29/24 22:56 11/30/24 05:34 Glycerin/Hypromellose/Fsk721 15 Ml Bottle EACH EYE 1 drp Q2H PRN PRN Administration DRY EYES Hydralazine HCl 10 mg 11/29/24 21:47 Hydralazine 20 Mg/Ml Vial IV Q8H PRN PRN SBP GREATER THAN 170 Protocol Hydralazine HCl 50 mg 11/30/24 08:00 12/01/24 06:11 Hydralazine 50 Mg Tablet PO 50 mg TID TERESSA Administration Protocol Sodium Chloride 250 mls @ 15 mls/hr 11/29/24 23:08 IV .[id number] PRN Additional IVPB Infusion Sodium Chloride 250 mls @ 15 mls/hr 11/29/24 23:08 IV .[id number] PRN Saline Flush Levothyroxine Sodium 50 mcg [...] Signature (if applicable): CC: Dr. Michael Puga DO~ Signed [facility] Work Phone: 1(947) 859-206108-01-2025 Consult note [facility] Medical Records Department [address] [place] [address] Consultation - Neurology 12/01/24 1243 MR#: [id number] Acct: [id number] Name: MICHAEL MEIER Rep #:[id number] 4 : 1940 84 From: Kyara Ponce MD PCP: Dr. Michael Puga, DO Status:AD M CORBY Location: [place] [id number]- 1 Assessment and Plan: Neuro Assessment/Plan 84 F with a past medical history of essential hypertension, hyperlipidemia, hypothyroidism paroxysmal atrial fibrillation SSS; s/p PPM (2021), morbid obesity, JOSE, pulmonary hypertension, neuropathy;depression with anxiety OA whopresented to [facility] ER complaining of Right upperand [...] hypertension, neuropathy;depression with anxiety OA whopresented to [facility] ER complaining of Right upperand [...] (Auto) 70.9 H, Lymph % (Auto) 13.0 L,[place] % (Auto) 12.3 H, Eos % (Auto) [...] IMPRESSION: No acute intracranial abnormality. Reading Location: [facility] Active Medications Active Medications Active Medications: Current [...] - 2 drp 11/29/24 22:56 11/30/24 05:34 Glycerin/Hypromellose/Hdp927 15 Ml Bottle EACH EYE 1 drp Q2H PRN PRN Administration DRY EYES Hydralazine HCl 10 mg 11/29/24 21:47 Hydralazine 20 Mg/Ml Vial IV Q8H PRN PRN SBP GREATER THAN 170 Protocol Hydralazine HCl 50 mg 11/30/24 08:00 12/01/24 06:11 Hydralazine 50 Mg Tablet PO 50 mg TID TERESSA Administration Protocol Sodium Chloride 250 mls @ 15 mls/hr 11/29/24 23:08 IV .[id number] PRN Additional IVPB Infusion Sodium Chloride 250 mls @ 15 mls/hr 11/29/24 23:08 IV .[id number] PRN Saline Flush Levothyroxine Sodium 50 mcg [...] applicable): CC: Dr. Michael Puga, DO~ Signed [facility]07-31-2025 Progress note Author Jonny Vicente [facility] Note Date/Time November 30, 2024 5:22 pm [facility] Medical Records Department [address] [place] [address] Progress Note - Hospitalist 11/30/24 1626 MR#: [id number] Acct: [id number] Name: MICHAEL MEIER Rep #:[id number] 8 : 1940 84 From: Jonny pacheco MD PCP: Dr. Michael Puga DO Status:AD M CORBY Location: [place] [address] Subjective Subjective No issues overnight, admitted with [...] (Auto) 72.4 H, Lymph % (Auto) 11.5 L,[place] % (Auto) 12.1 H, Eos % (Auto) [...] Clarity Clear, Urine pH 6.0, Ur Specific Barton 1.010, Urine Protein Negative, Urine Glucose (UA) [...] 73.5 H, Lymph % (Auto) 9.5 L, [place] % (Auto) 13.0 H, Eos % (Auto) [...] IMPRESSION: No acute intracranial abnormality. Reading Location: [facility] Brain CT 11/30/24 14:20 IMPRESSION: No acute intracranial abnormality. Reading Location: [id number] Physical Exam Narrative General: Alert, Oriented x3, [...] DVT: SCDs Charges/Coding Visit Charges Inpatient E&M: 71949 Subs Hosp L2 11/30/24 1722 <Electronically signed by Jonny Vicente MD> Cosigner Signature (if applicable): CC: ~ Signed [facility] Work Phone: 1(811) 266-902007-31-2025 Progress note [facility] Medical Records Department [address] [place] [address] Progress Note - Hospitalist 11/30/24 1627 MR#: [id number] Acct: [id number] Name: MICHAEL MEIER Rep #:[id number] 8 : 1940 84 From: Jonny pacheco MD PCP: Dr. Michael Puga, DO Status:AD M CORBY Location: [place] [address] Subjective Subjective No issues overnight, admitted with [...] (Auto) 72.4 H, Lymph % (Auto) 11.5 L,[place] % (Auto) 12.1 H, Eos % (Auto) [...] Clarity Clear, Urine pH 6.0, Ur Specific Barton 1.010, Urine Protein Negative, Urine Glucose (UA) [...] 73.5 H, Lymph % (Auto) 9.5 L, [place] % (Auto) 13.0 H, Eos % (Auto) [...] IMPRESSION: No acute intracranial abnormality. Reading Location: [facility] Brain CT 11/30/24 14:20 IMPRESSION: No acute intracranial abnormality. Reading Location: [facility] Physical Exam Narrative General: Alert, Oriented x3, [...] DVT: SCDs Charges/Coding Visit Charges Inpatient E&M: 94005 Subs Hosp L2 11/30/24 1722 Cosigner Signature (if applicable): CC: ~ Signed [facility]07-31-2025 Radiology Diagnostic study note [facility] Imaging Services [address] [place], [place] [address] Brain/Head without Contrast MR#: [id number] Acct: [id number] Name: MICHAEL MEIER Rep #: [id number] 0 : 1940 F 84 From: Jose D Saldana MD PCP: Dr. Michael Puga, DO Status: AD M CORBY Study:Brain/Head without Contrast Date of Exa m: 11/30/24 Exam# [id number] Ordering Dr: Jonny Vicente MD PROCEDURE: BRAIN/HEAD [...] IMPRESSION: No acute intracranial abnormality. Reading Location: [facility] CC: Dr. Michael Puga DO; Dr. Jonny Vicente MD ~ Behavior Support Specialist: Signed [facility]07-31-2025 History and physical note Author Tacho Goncalves [facility] Note Date/Time November 30, 2024 6:34 am [facility] Medical Records Department [address] [place] [address] H&P Exam - Hospitalist 11/29/242119 MR#: [id number] Acct: [id number] Name: MICHAEL MEIER Rep #:[id number] 4 : 1940 84 From: Tacho Vanegas DO PCP: Dr. Michael Puga DO Status:AD M CORBY Location: [place] [id number] HPI - General General Date of Admission: [...] daily and OA; onmeloxicam who presents to [facility] ER complaining of Right upper [...] 2 midnights. [facility] Medical History [facility] current [...] (Auto) 72.4 H, Lymph % (Auto) 11.5 L,[place] % (Auto) 12.1 H, Eos % (Auto) [...] Clarity Clear, Urine pH 6.0, Ur Specific Barton 1.010, Urine Protein Negative, Urine Glucose (UA) [...] IMPRESSION: No acute intracranial abnormality. Reading Location: [id number] Assessment & Plan Assessment/Plan (1) Hypertensive emergency [...] 85 minutes. Charges/Coding Visit Charges OBSV E&M: 04284 Observ/hosp same date L3 11/30/24 0634 <Electronically signed by Tacho Davis DO> Cosigner Signature (if applicable): CC: Dr. Tacho Davis, ; Dr. Michael Puga DO~ Signed [facility] Work Phone: 1(929) 396-870407-31-2025 History and physical note [facility] Medical Records Department [address] [place] [address] H&P Exam - Hospitalist 11/29/242119 MR#: [id number] Acct: [id number] Name: MICHAEL MEIER Rep #:[id number] 4 : 1940 84 From: Tacho Vanegas DO PCP: Dr. Michael Puga DO Status:AD M [facility] Location: [place] [address] HPI - General General Date of Admission: [...] daily and OA; onmeloxicam who presents to [facility] ER complaining of Right upper [...] 2 midnights. [facility] Medical History [facility] current [...] (Auto) 72.4 H, Lymph % (Auto) 11.5 L,[place] % (Auto) 12.1 H, Eos % (Auto) [...] Clarity Clear, Urine pH 6.0, Ur Specific Barton 1.010, Urine Protein Negative, Urine Glucose (UA) [...] IMPRESSION: No acute intracranial abnormality. Reading Location: [id number] Assessment & Plan Assessment/Plan (1) Hypertensive emergency [...] 85 minutes. Charges/Coding Visit Charges OBSV E&M: 98369 Observ/hosp same date L3 11/30/24 0680 Cosigner Signature (if applicable): CC: Dr. Tacho Davis DO; Dr. Michael Puga DO~ Signed [facility]07-31-2025 Discharge summary Author Virgil Tyler [facility] Note Date/Time November 30, 2024 1:01 am [facility] Medical Records Department [address] [place] [address] Emergency Department Summary 11/29/24 MR#: [id number] Acct: [id number] Name: MICHAEL MEIER Rep #:[id number] 8 : 1940 84 From: Virgil Saldivar PCP: Dr. Michael Puga DO Status:AD M CORBY Location: [place] [address] HPI History of Present Illness Chief Complaint: [...] similar symptoms: No PFSH PFSH Medical History M[facility] current use of amiodarone [...] 72.4 H Lymph % (Auto) 11.5 L [place] % (Auto) 12.1 H Eos % (Auto) [...] Clarity Clear Urine pH 6.0 Ur Specific Barton 1.010 Urine Protein Negative Urine Glucose (UA) [...] IMPRESSION: No acute intracranial abnormality. Reading Location: [facility] CT scan of the brain [...] DO [Primary Care Provider] - Print Language: Slovenian Disposition Disposition: Acute Care Hospital [facility] What to do if you have Problems For any increased pain, shortness of breath, bleeding, nausea or vomiting, chestpain, or any unexpected problems, contact your Primary Care Provider. Call [facility] ([phone]) or report to the closest Emergency Room. Call 911 if necessary. 11/30/24 0101 <Electronically signed by Virgil Tyler DO> Cosigner Signature (if applicable): CC: Dr. Michael Puga DO ~ Signed [facility] Work Phone: 1(197) 929-247607-31-2025 Discharge summary [facility] Medical Records Department [address] [place] [address] Emergency Department Summary 11/29/24 MR#: [id number] Acct: [id number] Name: MICHAEL MEIER Rep #:[id number] 8 : 1940 84 From: Virgil Saldivar PCP: Dr. Michael Puga DO Status:AD M CORBY Location: [address] History of Present Illness Chief Complaint: Weakness [...] similar symptoms: No PFSH PFSH Medical History 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 Right carotid bruit [...] 72.4 H Lymph % (Auto) 11.5 L [place] % (Auto) 12.1 H Eos % (Auto) [...] Clarity Clear Urine pH 6.0 Ur Specific Barton 1.010 Urine Protein Negative Urine Glucose (UA) [...] IMPRESSION: No acute intracranial abnormality. Reading Location: [id number] CT scan of the brain was obtained. [...] DO [Primary Care Provider] - Print Language: Slovenian Disposition Disposition: Acute Care Hospital [facility] What to do if you have Problems For any increased pain, shortness of breath, bleeding, nausea or vomiting, chestpain, or any unexpected problems, contact your Primary Care Provider. Call [facility] ([phone]) or report tothe closest Emergency Room. Call 911 if necessary. 11/30/24 0101 Cosigner Signature (if applicable): CC: Dr. Michael Puga DO ~ Signed [facility]07-30-2025 Radiology Diagnostic study note [facility] Imaging Services [address] [place], [place] [id number] Brain/Head without Contrast MR#: [id number] Acct: [id number] Name: MICHAEL MEIER Rep #: [id number] : 1940 F 84 From: Nelson Chávez MD PCP: Dr. Michael Puga DO Status: RE G ER Study:Brain/Head without Contrast Date of Exa m: 11/29/24 Exam# [id number] Ordering Dr: Virgil Tyler DO PROCEDURE: CT [...] volume loss and chronic microangiopathic changes. Absent napaimute ocular lenses. Intact skull base and calvarium. Clear sinuses and mastoids. CT/Brain/Head without Contrast IMPRESSION: No acute intracranial abnormality. Reading Location: [id number] CC: Dr. Virgil Tyler, DO; Dr. Michael Puga, DO ~ Behavior Support Specialist: Signed [facility]07-28-2025 Telephone encounter Note* Telephone Encounter [...] Yvonne Gomez November 27, 2024 12:12 PM [facility]07-28-2025 Miscellaneous Notes* Telephone Encounter - Yvonne Leiva [...] 27, 2024 12:12 PM documented in [facility] encounter[facility] Telephone encounter Note * Telephone Encounter - Amanda Pratt RN - 11/13/2024 8:48 AM EDT Call placed to patient and notified of below with verbalized understanding. Amanda Pratt RN [facility]07-14-2025 Miscellaneous Notes* Telephone Encounter - Amanda Pratt [...] - 11/10/2024 2:41 PM EDT Kell with [facility] calls to let provider know that [...] able. Amanda Pratt RN documented in this encounter[facility] Telephone encounter Note * Telephone Encounter - [...] evening daily Authorizing Provider: MICHAEL PUGA DO [facility]07-12-2025 Telephone encounter Note* Telephone Encounter - Sherry [...] Sherry Layne November 11, 2024 10:43 AM [facility]07-12-2025 Miscellaneous Notes* Telephone Encounter - Sherry Layne [...] 11, 2024 10:43 AM documented in this encounterSelect [facility] Telephone encounter Note * Telephone Encounter - Amanda Pratt RN - 11/10/2024 2:41 PM EDT Kell with [facility] calls to let provider know that [...] will respond once able. 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 9:16am Pulmonary hypertension acute Ju ly 2024 9:16am Essential (primary) hypertension chronic November 02, 2024 9:16am History of permanent cardiac pacemaker placement June 09, 2021 chronic J silvia 2024 9:16am Paroxysmal atrial fibrillation chronic November 02, 2024 9:16am [facility] Work Phone: 1(944) 592-875907-03-2025 Evaluation note* Diagnosis Onset Date Resolution Status Admit Date WELCH (dyspnea on exertion) acute November 02, 2024 9:16am 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, [...] attack) December, suspected November 29, 2024 9:39pm [facility] Work Phone: 1(606) 620-872407-03-2025 Evaluation note* Diagnosis Onset Date Resolution Status Admit Date WELCH (dyspnea on exertion) acute November 02, 2024 9:16am 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, [...] attack) December, suspected November 29, 2024 9:39pm [facility] Work Phone: 1(955) 527-250007-03-2025 Evaluation note* Diagnosis Onset Date Resolution Status Admit Date 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, 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 Essential (primary) hypertension chronic November 02, 2024 9:16am History of permanent cardiac pacemaker placement June 09, 2021 chronic J silvia 2024 9:16am Paroxysmal atrial fibrillation chronic November 02, 2024 9:16am Pulmonary hypertension chronic ly 2024 9:16am WELCH (dyspnea on exertion) deleted November 02, 2024 9:16am Morbid obesity with BMI of 40.0-44.9, adult acute November 29, 2024 9:39pm Tremor acute November 29 9:39pm Paroxysmal atrial fibrillation chronic November 29, 2024 9:39pm Hypertensive urgency resolved November 29, 2024 9:39pm Hypertensive emergency without congestive heart failure deleted November 29, 2024 9:39pm TIA (transient ischemic attack) December, deleted November 29, 2024 9:39pm Debility acute December 03 4:09pm Disequilibrium acute December 4:09pm Generalized weakness acute Decu st 2024 4:09pm Heme positive stool acute t 2024 4:09pm Hyponatremia acute December 03, 2024 4:09pm 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 December 03, 2024 4:09pm Morbid obesity with BMI of 40.0-44.9, adult acute December 03 4:09pm Normochromic normocytic anemia acute December 03, 2024 4:09pm Tremor acute December 03 4:09pm Essential (primary) hypertension chronic December 03, 2024 4:09pm History of permanent cardiac pacemaker placement June 09, 2021 chronic A ugust 2024 4:09pm Hyperlipidemia chronic December 4:09pm Hypothyroidism chronic December 4:09pm Left atrial enlargement chronic A ugust 2024 4:09pm Moderate left ventricular hypertrophy chronic December 03, 2024 4:09pm Paroxysmal atrial fibrillation chronic December 03, 2024 4:09pm Pulmonary hypertension chronic Au sulma 2024 4:09pm Tricuspid regurgitation chronic A ugust 2024 4:09pm TIA (transient ischemic attack) December, deleted December 03, 2024 4:09pm [facility] [employer] Work Phone: 1(766) 298-418407-03-2025 Evaluation note* Diagnosis Onset Date Resolution Status Admit Date Essential (primary) hypertension chronic November 02, 2024 9:16am History of permanent cardiac pacemaker placement June 09, 2021 chronic J silvia 2024 9:16am 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 November 02, 2024 9:16am Paroxysmal atrial fibrillation chronic November 02, 2024 9:16am Pulmonary hypertension chronic Ju ly 2024 9:16am WELCH (dyspnea on exertion) deleted November 02, 2024 9:16am Morbid obesity with BMI of 40.0-44.9, adult chronic November 29, 2024 9:39pm Paroxysmal atrial fibrillation chronic November 29, 2024 9:39pm Hypertensive urgency resolved November 29, 2024 9:39pm Tremor resolved November 29 9:39pm Hypertensive emergency without congestive heart failure deleted November 29, 2024 9:39pm TIA (transient ischemic attack) December, deleted November 29, 2024 9:39pm Debility acute December 03 4:09pm Disequilibrium acute December 4:09pm Generalized weakness acute Augu st 2024 4:09pm Heme positive stool acute Augus t 2024 4:09pm Hyponatremia acute December 03, 2024 4:09pm Normochromic normocytic anemia acute December 03, 2024 4:09pm Essential (primary) hypertension chronic December 03, 2024 4:09pm History of permanent cardiac pacemaker placement June 09, 2021 chronic A ugust 2024 4:09pm Hyperlipidemia chronic December 4:09pm Hypothyroidism chronic December 4:09pm Left atrial enlargement chronic A ug2024 4:09pm [facility] current use of amiodarone chronic December 03, 2024 4:09pm Moderate left ventricular hypertrophy chronic December 03, 2024 4:09pm Morbid obesity with BMI of 40.0-44.9, adult chronic December 03 4:09pm Paroxysmal atrial fibrillation chronic December 03, 2024 4:09pm Pulmonary hypertension chronic Au sulma 2024 4:09pm Tricuspid regurgitation chronic A ug2024 4:09pm Tremor resolved December 03 4:09pm TIA (transient ischemic attack) December, deleted December 03, 2024 4:09pm [facility] Work Phone: 1(245) 460-848707-02-2025 Telephone encounter Note* Telephone Encounter - Marisol Cano LPN - 11/01/2024 12:48 PM EDT Called spoke with pt she states tomorrow has a appointment with heart doctor then few days with lung doctor she states if does not get answers from them she will make appointment then and come in. [facility]07-02-2025 Miscellaneous Notes* Telephone Encounter - Marisol Cano LPN - 11/01/2024 12:48 PM EDT Called spoke with pt she states tomorrow has a appointment with heart doctor then few days with lung doctor she states if does not get answers from them she will make appointment then and come in. * Telephone Encounter - Key Portillo APRN.BRIDGE BUILDER - 11/01/2024 9:22 AM EDT Please see if patient is willing to make appointment due to Shortness of Breath as mentioned below. Thank you, Key Portillo APRN.BRIDGE BUILDER * Telephone Encounter - Key Portillo APRN.CNP [...] walking). 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 I also think a spine/pain mgmt consult would be a good idea for the chronic/worsening low back pain. Thanks, Sarah Merchant, PT documented in this encounterSelect [facility] Telephone encounter Note * Telephone Encounter - Key Portillo APRN.CNP - 11/01/2024 9:22 AM EDT Please see if patient is willing to make appointment due to Shortness of Breath as mentioned below. Thank you, Key Portillo APRN.BRIDGE BUILDER [facility]07-02-2025 Telephone encounter Note* Telephone Encounter - Key Portillo APRN.CNP - 11/01/2024 9:22 AM EDT ----- Message from Sarah Merchant PT sent at 10/27/2024 6:59 PM EDT ----- Hi Dr Puga, We're seeing Michael for PT (she was referred by [facility]) and we've also seen her here inthe past for ortho/mobility issues. She's been reporting increased Shortness of Breath with minimalactivity which I definitely noticed today (I encouraged her to go to ER prn but she doesn't think it's necessary). She's also reporting increased low back pain (mostly with standing & walking). 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 I also think a spine/pain mgmt consult would be a good idea for the chronic/worsening low back pain. Thanks, Sarah Merchant PT [facility]07-01-2025 Radiology Diagnostic study note [facility] Imaging Services [address] [place] [address] Chest PA and Lateral MR#: [id number] Acct: [id number] Name: MICHAEL MEIER Rep #: [id number] : 1940 F 84 From: Chris Bradley MD PCP: Dr. Michael Puga, DO Status: RE G CLI Study:Chest PA and Lateral Date of Exam: 10/31/24 Exam# [id number] Ordering Dr: Anabel Roberson PA PROCEDURE: CHEST [...] pulmonary process, no interval change Reading Location: [id number] CC: Dr. Michael Puga, DO; NIDA Katz ~ Behavior Support Specialist: Signed [facility]06-27-2025 NoteHNO ID: [id number] Author: SARAH MERCHANT, FRANTZ Service: ? Author [...] back brace etc. she's never seen a disease education specialist, only ortho for hips. she also reports 10# weight gain over past 2 months due to steroids. has has f/u with lace and textiles restorer end of October (which she may try to move up) educational administrator in mid October, PCP in December. she [...] 1244 Session Stop Time : 1331 Sarah Shonda [facility]06-27-2025 History of Present illness Narrative* Sarah [...] back brace etc. she's never seen a disease education specialist, only ortho for hips. she also reports 10# weight gain over past 2 months due to steroids. has has f/u with lace and textiles restorer end of October (which she may try to move up) educational administrator in mid October, PCP in December. she [...] 1331 Sarah Merchant PT documented in this encounterSelect [facility]06-26-2025 Telephone encounter Note * Telephone Encounter - July Marcano RN - 10/26/2024 8:39 AM EDT Pt called and is notified of providers message and instructions. Pt voices understanding, she states she will add the Tylenol. July Marcano RN [facility]06-26-2025 Miscellaneous Notes* Telephone Encounter - July Marcano [...] advise. Tameka Marin RN documented in this encounterSelect Medical [facility]06-25-2025 Telephone encounter Note * Telephone Encounter - Michael Puga DO - 10/25/2024 10:09 PM EDT No this dose can't be increased. We can consider changing the meloxicam to an alternative such as Celebrex 100 mg twice a day with food as needed. Or she can add on 500 mg of Tylenol every 6 hours for pain Michael Puga DO [facility]06-25-2025 Telephone encounter Note* Telephone Encounter - Tameka [...] short term. Please advise. Tameka Marin RN [facility]06-09-2025 NoteHNO ID: [id number] Author: JOY SUN PTA Service: ? Author Type: Solar Project Manager Type: Progress Notes Filed: 10/09/2024 13:37 Note [...] 8 UE 8 lvl 2 6 minutes CONCRETE MIXING PLANT LABORER in constant attendence assessing current status reviewing [...] Center06-09-2025 History of Present illness Narrative* Joy Sun, CONCRETE MIXING PLANT LABORER - 10/09/2024 1:34 PM EDT Episode Visit [...] 8 UE 8 lvl 2 6 minutes CONCRETE MIXING PLANT LABORER in constant attendence assessing current status reviewingHEP [...] 1328 Joy Sun PTA documented in this encounterSelect Medical [facility]ty [facility]06-02-2025 NoteHNO ID: [id number] Author: PJ BLEDSOE, PT Service: ? Author [...] sets 9: standing at rollator b ue international project manager slight march in place r to l to r x 5 then b heel raises x 5 x 3 sets 10: standing wt shifts b ue international project manager at rollator wt shift r l [...] Session Stop Time : 1530 Pj Bledsoe [facility]06-02-2025 History of Present illness Narrative* Pj [...] sets 9: standing at rollator b ue international project manager slight march in place r to l to r x 5 then b heel raises x 5 x 3 sets 10: standing wt shifts b ue international project manager at rollator wt shift r l [...] 1530 Pj Bledsoe PT documented in this encounterSelect Medical [facility]ty [facility]05-29-2025 Telephone encounter Note * Telephone Encounter - Marisol Cano LPN - 09/28/2024 4:00 PM EDT Spoke with Kell gave information provided. She voices understanding. She will have pt call in for her appointment she does not know pts schedule. [facility]05-29-2025 Miscellaneous Notes* Telephone Encounter - Marisol Cano LPN - 09/28/2024 4:00 PM EDT Spoke with Kell gave information provided. She voices understanding. She will have pt call in for her appointment she does not know pts schedule. * Telephone Encounter - Key Portillo APRN.BRIDGE BUILDER - 09/28/2024 3:01 PM EDT Pt needs appointment to assess this. This was not mentioned in recent office visit 1 month ago. Thank you, Key Portillo APRN.BRIDGE BUILDER * Telephone Encounter - Nadine Colon LPN - 09/28/2024 1:42 PM EDT Kell from [facility] calling to report patient tremor is [...] the office. Please advise documented in this encounterSelect Medical [facility]ty [facility]05-29-2025 NoteHNO ID: [id number] Author: SARAH MERCHANT PT Service: ? Author [...] increase T-score by a minimum 5 points. Burke in home exercise program. Patient will demonstrate [...] Planned: 12 Planned Treatment Interventions: Therapeutic exercise (67067), Neuromuscular re-education (32591), Therapeutic activities (08571), Self-fci management (87780), Gait Training (51006), Patient/Family/Caregiver Education, General Conditioning PLAN FOR NEXT [...] also reports UE weakness. she's currently getting Nsg s/p hospitalization in April for CHF. [...] Lives With: Self/Alone Assistance Available: Community-Based Health Kitchen Clerk, PRN (currently getting Nsg, has friends that help prn) Home [...] increase T-score by a minimum 5 points. Burke in home exercise program. Patient will demonstrate [...] Planned: 12 Planned Treatment Interventions: Therapeutic exercise (66095), Neuromuscular re- education (02585), Therapeutic activities (43310), Self-fci management (81130), Gait Training (35224), Patient/Family/Caregiver Education, General Conditioning PLAN FOR NEXT [...] also reports UE weakness. she's currently getting Nsg s/p hospitalization in April for CHF. [...] Lives With: Self/Alone Assistance Available: Community-Based Health Kitchen Clerk, PRN (currently getting Nsg, has friends that help prn) Home [...] 1459 Sarah Merchant PT documented in this encounterSelect Medical [facility]ty [facility]05-29-2025 Telephone encounter Note * Telephone Encounter - Key Portillo APRN.CNP - 09/28/2024 3:01 PM EDT Pt needs appointment to assess this. This was not mentioned in recent office visit 1 month ago. Thank you, Key Portillo APRN.CNP [facility]05-29-2025 Telephone encounter Note* Telephone Encounter - Nadine Colon LPN - 09/28/2024 1:42 PM EDT Kell from [facility] calling to report patient tremor is [...] is out of the office. Please advise [facility]05-12-2025 Telephone encounter Note* Telephone Encounter - Delisa [...] Delisa Gomez September 11, 2024 9:22 AM [facility]05-12-2025 Miscellaneous Notes* Telephone Encounter - Delisa Townsend [...] 11, 2024 9:22 AM documented in this encounterSelect Medical [facility]05-09-2025 Telephone encounter Note * Telephone Encounter - Michael Puga DO - 09/08/2024 5:06 PM EDT Noted Michael Puga DO [facility]05-09-2025 Miscellaneous Notes* Telephone Encounter - Michael Puga [...] PM EDT Phoned pt and explained what Daszohreh reported needed to be done per Medicare guidelines for her to qualify for oxygen. Pt reports she was in [facility] about a yr ago with pneumonia, [...] guidelines. Please phone Jackelin with any questions: [phone] extension [phone] documented in this encounterSelect Medical Specialty [facility]05-09-2025 Telephone encounter Note * Telephone Encounter - [...] not using the oxygen. Amanda Pratt RN [facility]05-09-2025 Telephone encounter Note* Telephone Encounter - Loli Adamson RN - 09/08/2024 1:32 PM EDT Phoned pt and explained what Poornima reported needed to be done per Medicare guidelines for her to qualify for oxygen. Pt reports she was in [facility] about a yr ago with pneumonia, [...] thinks she should do. Please advise pt. [facility]05-09-2025 Telephone encounter Note* Telephone Encounter - Michael Puga DO - 09/08/2024 12:37 PM EDT Noted, is she willing to do this testing? Michael Puga DO [facility]05-09-2025 Telephone encounter Note* Telephone Encounter - Loli Adamson RN - 09/08/2024 10:41 AM EDT Jackelin- Poornima- reports since pt has dx JOSE on CPAP, per medicare guidelines, pt would have to have sleep titration study to qualify for oxygen. [facility] pt would not qualify for oxygen- with overnight pulse oximetry test per medicare guidelines. Please phone Jackelin with any questions: [phone] extension [phone] [facility]05-09-2025 Telephone encounter Note* Telephone Encounter - Jacque Machuca MA - 09/08/2024 8:52 AM EDT Faxed Jacque Machuca MA [facility]05-09-2025 Miscellaneous Notes* Telephone Encounter - Jacque Machuca [...] fax per below request. Asia Rosales APRN.CARMELINA * Telephone Encounter - Bhavna Arauz RN - 09/07/2024 11:16 AM EDT Petra NOLASCO from [facility] calls and is asking status [...] advise, Bhavna Arauz RN documented in this encounterSelect Medical Specialty [facility]05-09-2025 Telephone encounter Note * Telephone Encounter - Asia Rosales APRN.CNP - 09/08/2024 8:22 AM EDT It's in the outbox in my office. Asia Rosales APRN.CNP [facility]05-09-2025 Telephone encounter Note* Telephone Encounter - Jacque Machuca MA - 09/08/2024 8:15 AM EDT Please print script Jacque Machuca MA [facility]05-08-2025 Telephone encounter Note* Telephone Encounter - Asia Rosales APRN.CNP - 09/07/2024 1:32 PM EDT I placed the order best I know how to. Please fax per below request. Asia Rosales APRN.CNP [facility]05-08-2025 Telephone encounter Note* Telephone Encounter - Bhavna Arauz RN - 09/07/2024 11:16 AM EDT Petra NOLASCO from [facility] calls and is asking status of request. When order is placed, please fax orderto [employer]. Please place order for nighttime pulsometry test and fax to [employer]. Please review and advise, Bhavna Arauz RN [facility]05-07-2025 Telephone encounter Note* Telephone Encounter - Julianna Cano LPN - 09/06/2024 1:12 PM EDT Pt. informed and would like to get the nighttime Oximetry. [facility]05-06-2025 Telephone encounter Note* Telephone Encounter - Michael Puga DO - 09/05/2024 5:35 PM EDT Please clarify with more information What recommendation? Would need to have nighttime oximetry testing for me to order oxygen by insurance Michael Puga DO [facility]05-06-2025 Telephone encounter Note* Telephone Encounter - Bhavna Arauz RN - 09/05/2024 11:46 AM EDT Patient calls and states that palliative care nurse had just visited patient. Palliative nurse had told patient that patient would benefit to have oxygen at night. Patient state that nurse had told patient to call office about this. Please review and advise, Bhavna Arauz RN [facility]04-30-2025 Instructions* Patient Instructions* Michael Puga DO - [...] alive, yogurt, cottage cheese Relion meter at [facility] if insurance doesn't want to cover rx. [facility] Address: [address], [place] [address] documented in this encounterSelect Medical Specialty [facility]04-30-2025 NoteHNO ID: [id number] Author: MICHAEL PUGA DO Service: ? Author [...] -Left - [facility] ARTHRP [facility]NMervat CONDYLEANDPLATU MEDIALANDLAT COMPARTMENTS 12/30/2009 Right knee replaced [...] [Meperidine* Vomiting (more content not included)...[facility]04-30-2025 History of Present illness Narrative* Michael Puga, - 08/30/2024 3:40 PM EDT CC: Michael [...] CONDYLE&PLATU MEDIAL&LAT COMPARTMENTS 11/15/2009 Knee replacement, total -[facility] ARTHRP KNE CONDYLE&PLATU MEDIAL&LAT COMPARTMENTS 12/30/2009 Right knee replaced COLONOSCOPY FLX DX W/COLLJ SPEC WHEN PFRMD 06/29/2017 Colonoscopy EGD 10/17/2020 EGD W/O [facility] SPEC VARICIES INJ 01/08/2022 EGD W/O [facility] SPEC VARICIES INJ 03/31/2024 [place] ESOPHAGOGASTRODUODENOSCOPY TRANSORAL DIAGNOSTIC 11/29/2000 EGD ESOPHAGOGASTRODUODENOSCOPY TRANSORAL [...] dyspnea Follow up with Palliative care and [place]. 5. Obstructive lung disease (HCC) - ICD9: [...] dyspnea Follow up with Palliative care and [place]. Michael Puga DO Return if no improvement. Follow up with Michael Puga DO. To ER if develops chest pain, shortness of breath. Discussed risks, benefits, alternatives, and potential side effects of medications. Patient/Guardian expressed understanding and agreed with the plan. See patient instructions. Michael Puga DO [address] [place] [address] documented in this encounterSelect [facility]04-[facility]-2025 Telephone encounter Note * Telephone Encounter - Asia Rosales APRN.CNP - 08/18/2024 2:37 PM EDT I saw her in the office yesterday 08/17 and these concerns were addressed. Asia Rosales APRN.CNP [facility] Work Phone: [phone] Miscellaneous Notes* Telephone Encounter - Asia Rosales APRN.CNP - 08/18/2024 2:37 PM EDT I saw her in the office yesterday 08/17 and these concerns were addressed. Asia Rosales APRN.CNP * Telephone Encounter - Loli Adamson RN - 08/16/2024 1:28 PM EDT Petra- - [facility]- reports she is seeing patient and [...] nurse phoned patient and scheduled appt with Garnishment Specialist for tomorrow to see if Garnishment Specialist can increase patient's paxil. documented in this encounter[facility]-2025 NoteHNO ID: [id number] Author: ASIA ROSALES APRN.BRIDGE BUILDER Service: ? Author Type: Nurse Practitioner Type: [...] -Left - [facility] ARTHRP KNE CONDYLEANDPLATU MEDIALANDLAT [...] mouth once (more content not included)...[facility]04-17-2025 History of Present illness Narrative* Asia Rosales APRN.BRIDGE BUILDER - 08/17/2024 3:22 PM EDT Chief Complaint [...] CONDYLE&PLATU MEDIAL&LAT COMPARTMENTS 11/15/2009 Knee replacement, total [facility] ARTHRP KNE CONDYLE&PLATU MEDIAL&LAT COMPARTMENTS 12/30/2009 Right [...] 08/18/2024 Time: 8:26 AM documented in this encounter[facility] Telephone encounter Note * Telephone Encounter - Loli Adamson, RN - 08/16/2024 1:28 PM EDT Petra- - [facility]- reports she is seeing patient and [...] nurse phoned patient and scheduled appt with Garnishment Specialist for tomorrow to see if Garnishment Specialist can increase patient's paxil. [facility]03-07-2025 Telephone encounter Note* Telephone Encounter - Amanda [...] to do anything. Protocols used: Medication Question [id number] [facility]03-07-2025 Miscellaneous Notes* Telephone Encounter - Amanda Pratt [...] to do anything. Protocols used: Medication Question [id number] documented in this encounterSelect [facility]-2025 NoteHNO ID: [id number] Author: PJ BLEDSOE PT Service: ? Author Type: Physical Therapist Type: Progress Notes Filed: 07/03/2024 08:48 Note Text: 07/03/2024 [facility] PHYSICAL THERAPY [...] Pt did not attend further PT. Pj Bledsoe [facility]02-26-2025 Telephone encounter Note* Telephone Encounter - Renea Wallace MA - 06/28/2024 11:38 AM EST Printed telephone encounter with cover sheet & faxed to Dr. Hickey [phone]. Advised on cover sheet to respond with lace and textiles restorer's recommendations. Will wait for fax back. Renea Wallace MA [facility]02-26-2025 Miscellaneous Notes* Telephone Encounter - Renea Wallace MA - 06/28/2024 11:38 AM EST Printed telephone encounter with cover sheet & faxed to Dr. Hickey [phone]. Advised on cover sheet to respond with lace and textiles restorer's recommendations. Will wait for fax back. Renea Wallace MA * Telephone Encounter - Michael Puga DO - 06/28/2024 10:37 AM EST Please call her lace and textiles restorer office at [facility] and see if they are concerned [...] reports provider was going to check with [facility] about taking it since it can cause SOB. Please review and advise, Amanda Pratt RN documented in this encounterSelect [facility] Telephone encounter Note * Telephone Encounter - Michael Puga DO - 06/28/2024 10:37 AM EST Please call her lace and textiles restorer office at [facility] and see if they are concerned with her shortness of breath and respirator symptoms potentially being secondary to SE from Amiodarone and if any options to change this anti arrhythmic on their end? Michael Puga DO [facility]02-25-2025 NoteHNO ID: [id number] Author: MICHAEL PUGA DO Service: ? Author [...] and albuterol. She has been seen by Bridges Supervisor as well as Dr. Hickey/Powderer at [facility] for follow up after discharge home. [...] FEM PROSTC AGRFT/ALGRFT Left 07/2016 ARTHRP [facility] CONDYLEANDPLATU MEDIALANDLAT COMPARTMENTS 11/15/2009 Knee replacement, total -Left [facility] ARTHRP KNE CONDYLEANDPLATU MEDIALANDLAT COMPARTMENTS 12/30/2009 Right knee replaced COLONOSCOPY FLX DX W/COLLJ SPEC WHEN PFRMD 06/29/2017 Colonoscopy EGD 10/17/2020 EGD W/O [facility] SPEC VARICIES INJ 01/08/2022 EGD W/O [facility] SPEC VARICIES INJ 03/31/2024 [place] ESOPHAGOGASTRODUODENOSCOPY TRANSORAL DIAGNOSTIC 11/29/2000 EGD ESOPHAGOGASTRODUODENOSCOPY TRANSORAL DIAGNOSTIC 06/29/2017 EGD JOINT REPLACEMENT HX LAPS SURG CHOLECYSTECTOMY W/CHOLANGIOGRAPHY PACEMAKER IMPLANT 01/2011 SKIN BIOPSY HX TONSILLECTOMY HX TOTAL ABDOMINAL HYSTERECT W/WO RMVL TUBE OVARY Hysterectomy, GLA Current Outpatient Medications Medication Sig levothyroxine (SYNTHROID) [...] Intolerance Social (more content not included)...[facility]02-25-2025 History of Present illness Narrative* Puga Michael Alyssa, DO - 06/27/2024 4:06 PM EST CC: [...] and albuterol. She has been seen by Bridges Supervisor as well as Dr. Hickey/Powderer at [facility] for follow up after discharge home. [...] COMPARTMENTS 11/15/2009 Knee replacement, total -Left - [facility] ARTHRP KNE CONDYLE&PLATU MEDIAL&LAT COMPARTMENTS [...] I27.20 See above F/u with Pulm and Powderer Multifactorial, recently diagnosed - NEBULIZER ACCESSORIES KIT - NEBULIZER 4. WELCH (dyspnea on exertion) - ICD9: 786.09, ICD10: R06.09 See above F/u with Pulm and Powderer Multifactorial, CHF and obstructive lung disease have [...] See patient instructions. Michael Puga DO [address] [place] [address] documented in this encounterSelect [facility]02-[facility]-2025 Telephone encounter Note * Telephone Encounter - Amanda Pratt RN - 06/26/2024 2:42 PM EST Patient calls to let provider know that she didn't start the Advair Diskus d/t side effects and thepulmonary testing didn't show asthma or COPD per patient. Patient also asking about amiodarone. Doesn't look like it is ordered by provider but patient reports provider was going to check with [facility] about taking it since it can cause SOB. Please review and advise, Amanda Pratt RN [facility]02-04-2025 Telephone encounter Note* Telephone Encounter - Jacque Machuca MA - 06/06/2024 4:35 PM EST Pt informed, verbalized understanding Jacque Machuca MA [facility]02-04-2025 Miscellaneous Notes* Telephone Encounter - Jacque Machuca [...] Pt calls for lab results done at [facility] on 06/02/24. Results are scanned in the lab chart.. Constance Ervin LPN documented in this encounterSelect Medical [facility]02-04-2025 Telephone encounter Note * Telephone Encounter - Michael Puga DO - 06/06/2024 4:28 PM EST Please inform patient that her BUN is slightly high, creatinine is normal. She needs to increase her fluid/water intake. Also her AST and ALT liver enzyme labs are slightly high- this CMP lab needs to be rechecked in 1 month Michael Puga DO [facility]02-04-2025 Telephone encounter Note* Telephone Encounter - Constance Ervin LPN - 06/06/2024 11:52 AM EST Pt calls for lab results done at [facility] on 06/02/24. Results are scanned in the lab chart.. Constance Ervin LPN [facility]01-29-2025 Telephone encounter Note* Telephone Encounter - Key Portillo APRN.CARMELINA - 05/31/2024 10:44 AM EST Noted. Thank you, Key Portillo APRN.BRIDGE BUILDER [facility]01-29-2025 Miscellaneous Notes* Telephone Encounter - Key Portillo APRN.CARMELINA - 05/31/2024 10:44 AM EST Noted. Thank you, Key Portillo APRN.BRIDGE BUILDER * Telephone Encounter - Amanda Pratt RN - 05/31/2024 10:07 AM EST Qing with [facility] calls in regards to below. CMP was not completed. Re-faxed ordered to [facility] lab and Qing will add a nurse visit for this week to collect specimen as soon as possible. Amanda Pratt, RN * Telephone Encounter - Key Portillo APRN.CARMELINA - 05/31/2024 7:36 AM EST I don't see CMP results either. Can we call [facility] and confirm this was drawn. If not, have her get itdone. Thank you, Key Portillo APRN.BRIDGE BUILDER * Telephone Encounter - Loli Adamson RN - 05/30/2024 8:26 AM EST Pt reports she had a CMP done at [facility] on 05/25/24 to check her kidneys and glucose. We received a BNP and CBC from [facility] under labs. Do not see a CMP. Patient asking Key to review and advise. documented in this encounterSelect [facility]01-29-2025 Telephone encounter Note * Telephone Encounter - Amanda Pratt RN - 05/31/2024 10:07 AM EST Qing with [facility] calls in regards to below. CMP was not completed. Re-faxed ordered to [facility] lab and Qing will add a nurse visit for this week to collect specimen as soon as possible. Amanda Pratt RN [facility]01-29-2025 Telephone encounter Note* Telephone Encounter - Key Portillo APRN.BRIDGE BUILDER - 05/31/2024 7:36 AM EST I don't see CMP results either. Can we call [facility] and confirm this was drawn. If not, have her get itdone. Thank you, Key Portillo APRN.BRIDGE BUILDER [facility]01-28-2025 Telephone encounter Note* Telephone Encounter - Loli Adamson RN - 05/30/2024 8:26 AM EST Pt reports she had a CMP done at [facility] on 05/25/24 to check her kidneys and glucose. We received a BNP and CBC from [facility] under labs. Do not see a CMP. Patient asking Key to review and advise. [facility]01-23-2025 Telephone encounter Note* Telephone Encounter - Marisol Cano LPN - 05/25/2024 10:15 AM EST Left detailed message on confidential voice mail. Also left out number for any questions. [facility]01-23-2025 Miscellaneous Notes* Telephone Encounter - Marisol Cano LPN - 05/25/2024 10:15 AM EST Left detailed message on confidential voice mail. Also left out number for any questions. * Telephone Encounter - Key Portillo APRN.CNP - 05/25/2024 10:00 AM EST I would like patient to take medication and then recheck BP. BP was WNL at appointment on 05/11. I see from discharge instructions from [facility] that she was taking HCTZ at [...] KEY PORTILLO APRN.CNP * Telephone Encounter - July Marcano RN - 05/25/2024 9:25 AM EST Bhavna MAKI CM with [facility] called in and reports Pt had been taken off her Hydrochlorothiazide perCardiology for a while, but the last time she was in the hospital she was put back on 12.5 mg. She states the Pt is going to need a script called in if she is to be taking them to [facility] in [place].I told her I didn't see the HCTZ [...] Please call and advise. documented in this encounterSelect [facility]01-[facility]-2025 Telephone encounter Note * Telephone Encounter - Key Portillo APRN.CNP - 05/25/2024 10:00 AM EST I would like patient to take medication and then recheck BP. BP was WNL at appointment on 05/11. I see from discharge instructions from [facility] that she was taking HCTZ at [...] once daily. Authorizing Provider: KEY PORTILLO APRN.CNP [facility]01-23-2025 Telephone encounter Note* Telephone Encounter - July Marcano RN - 05/25/2024 9:25 AM EST Bhavna MAKI CM with [facility] called in and reports Pt had been taken off her Hydrochlorothiazide perCardiology for a while, but the last time she was in the hospital she was put back on 12.5 mg. She states the Pt is going to need a script called in if she is to be taking them to [facility] in [place].I told her I didn't see the HCTZ [...] labs this morning. Please call and advise. [facility]01-17-2025 Telephone encounter Note* Telephone Encounter - Julianna Cano LPN - 05/19/2024 2:43 PM EST Pt. informed. [facility]01-17-2025 Miscellaneous Notes* Telephone Encounter - Julianna Moreno LPN - 05/19/2024 2:43 PM EST Pt. informed. * Telephone Encounter - Key Portillo APRN.CNP - 05/19/2024 2:39 PM EST Please let patient know that lab work results look much much better! Kidney function is improving drastically. I want her to continue to stay off of the lasix and repeat labs 1 more time in 1 week. Without the lasix her BNP remains stable which is also a good sign. Thank you, Key Portillo APRN.BRIDGE BUILDER * Telephone Encounter - Chloe Castro LPN - 05/19/2024 12:21 PM EST Pt calling for results of lab work she had done in her home yesterday, Results are I Epic. Please advise pt. Chloe Castro LPN documented in this encounterSelect [facility]01-[facility]-2025 Telephone encounter Note * Telephone Encounter - [...] a good sign. Thank you, Key Portillo APRN.CARMELINA [facility]01-17-2025 Telephone encounter Note* Telephone Encounter - Chloe Castro LPN - 05/19/2024 12:21 PM EST Pt calling for results of lab work she had done in her home yesterday, Results are I Epic. Please advise pt. Chloe Castro LPN [facility]01-16-2025 Telephone encounter Note* Telephone Encounter - Key Portillo APRN.CARMELINA - 05/18/2024 10:50 AM EST Perfect! Thank you. Key Portillo APRN.BRIDGE BUILDER [facility]01-16-2025 Miscellaneous Notes* Telephone Encounter - Key Portillo APRN.CARMELINA - 05/18/2024 10:50 AM EST Perfect! Thank you. Key Portillo APRN.BRIDGE BUILDER * Telephone Encounter - Tameka Marin RN - 05/18/2024 10:43 AM EST Bhavna with [facility] calling in and states she was able to draw all labs needed today. Tameka Marin RN * Telephone Encounter - Key Portillo APRN.BRIDGE BUILDER - 05/18/2024 10:42 AM EST Most important is CMP to have drawn if able. Agree with below. Pt needs to discontinue lasix all together. This was ordered by [facility] after recent admission for new onset CHF exacerbation. Initially ordered for 40 mg daily, I decreased to 20 mg daily after kidney function was so poor and told pt to repeat labs in 5 days with plan to discontinue all together if swelling and weight gain remained stable with decreased. Thank you, Key Portillo APRN.BRIDGE BUILDER * Telephone Encounter - July Marcano RN - 05/18/2024 9:59 AM EST Bhavna RN [facility] called in and reports Pt isn't [...] labs are resulted. * Telephone Encounter - Mcihael Puga DO - 05/17/2024 8:46 PM EST Order placed for CMP Michael Puga DO * Telephone Encounter - Sulatna Catalan RN - 05/17/2024 6:52 PM EST [...] Verbalizes understanding. Pt is scheduled to see [facility] on 06/01/24. Per Alondra Portillo's OV note on 05/11/24, pt was to schedule a 6 wk follow up which is not scheduled. Does pt need to come to PCP office in addition to [facility] appt? Pt due for labwork as labs drawn on 05/11/24 showed significant decrease in kidney function. Asked ptto get it drawn in the morning if she can. Pt will go to [place] and get it drawn in the morning. [...] Michael Puga DO * Telephone Encounter - Macarena Rodriguez LPN - 05/17/2024 9:46 AM EST Phoned [facility] pharmacy\ with clarification on current meds. Spironolactone 25 mg daily was prescribed by the [facility] also hydralazine 25 mg was prescribed by Kristal Watkins [facility]. Lasix 20 mg was just prescribed by Key Portillo, then Lasix 40 mg was prescribed by [facility] May 02. Left message with Bhavna [facility] about above information. Please review and advise further. Macarena Rodriguez LPN * Telephone Encounter - Michael Puga DO - 05/17/2024 9:02 AM EST Please clarify with pharmacy and patient her current diuretic/BLOOD PRESSURE medications that she is picking up and taking * Telephone Encounter - Amanda Pratt RN - 05/16/2024 10:19 AM EST Bhavna with [facility] calls to report duplicate therapy between lasix and spironolactone and lasix and hydralazine. Bhavna is asking if provider wants all medications continued. Hydralazine and Spironolactone are on current medication list but prescription not sent to pharmacy. Please review and advise. Bhavna is requesting a call back at [phone]. Amanda Pratt RN documented in this encounterSelect [facility]-2025 Telephone encounter Note * Telephone Encounter - Tameka Marin RN - 05/18/2024 10:43 AM EST Bhavna with [facility] calling in and states she was able to draw all labs needed today. Tameka Marin RN [facility]01-16-2025 Telephone encounter Note* Telephone Encounter - Key Portillo APRN.CARMELINA - 05/18/2024 10:42 AM EST Most important is CMP to have drawn if able. Agree with below. Pt needs to discontinue lasix all together. This was ordered by [facility] after recent admission for new onset CHF exacerbation. Initially ordered for 40 mg daily, I decreased to 20 mg daily after kidney function was so poor and told pt to repeat labs in 5 days with plan to discontinue all together if swelling and weight gain remained stable with decreased. Thank you, Key Portillo APRN.BRIDGE BUILDER [facility]01-16-2025 Telephone encounter Note* Telephone Encounter - July Marcano RN - 05/18/2024 9:59 AM EST Bhavna MAKI [facility] HH called in and reports Pt [...] what labs she was able to drawn. [facility]01-16-2025 Telephone encounter Note* Telephone Encounter - Sultana Catalan RN - 05/18/2024 9:50 AM EST Pt would like a call back as soon as possible after her labs are resulted. [facility]01-15-2025 Telephone encounter Note* Telephone Encounter - Michael Puga DO - 05/17/2024 8:46 PM EST Order placed for CMP Michael Puga DO [place] [address]-15-2025 Telephone encounter Note* Telephone Encounter - Sultana [...] 5-7 days. Pended order for repeat CMP. [facility]01-15-2025 Telephone encounter Note* Telephone Encounter - Sultana Catalan RN - 05/17/2024 6:39 PM EST Pt returned the call and appt made with Dr. Puga for 520 pm on 06/21/24. Pt reminded to stop Lasix and make sure to get labs drawn in AM. [facility]01-15-2025 Telephone encounter Note* Telephone Encounter - Sultana Catalan RN - 05/17/2024 6:20 PM EST LM for pt to return the call as pt needs appt set up for around 06/22/24 which would be 6 wk f/u. Reinforce to pt to stop Lasix and get labs drawn in the AM. [facility]01-15-2025 Telephone encounter Note* Telephone Encounter - Michael Puga DO - 05/17/2024 6:11 PM EST Agree with need for lab work Agree with need for follow up in Primary care but would recommend that this visit is after the visit in Cardiology Michael Puga DO [facility]01-15-2025 Telephone encounter Note* Telephone Encounter - Sultana [...] Verbalizes understanding. Pt is scheduled to see [facility] on 06/01/24. Per Alondra Portillo's OV note on 05/11/24, pt was to schedule a 6 wk follow up which is not scheduled. Does pt need to come to PCP office in addition to [facility] appt? Pt due for labwork as labs drawn on 05/11/24 showed significant decrease in kidney function. Asked ptto get it drawn in the morning if she can. Pt will go to [place] and get it drawn in the morning. [facility]01-15-2025 Telephone encounter Note* Telephone Encounter - Michael Puga DO - 05/17/2024 12:31 PM EST Please clarify what her edema of her legs is looking like? This was assessed by Key and not myself. I Don't want her to be on the spironolactone and the lasix. Recommend stopping the lasix if her edema is improved Michael Puga DO [facility]01-15-2025 Telephone encounter Note* Telephone Encounter - Macarena Rodriguez LPN - 05/17/2024 9:46 AM EST Phoned [facility] pharmacy\ with clarification on current meds. Spironolactone 25 mg daily was prescribed by the [facility] also hydralazine 25 mg was prescribed by Kristal Watkins [facility]. Lasix 20 mg was just prescribed by Key Portillo, then Lasix 40 mg was prescribed by [facility] May 02. Left message with Bhavna [facility] about above information. Please review and advise further. Macarena Rodriguez LPN [facility]01-15-2025 Telephone encounter Note* Telephone Encounter - Michael Puga DO - 05/17/2024 9:02 AM EST Please clarify with pharmacy and patient her current diuretic/BLOOD PRESSURE medications that she is picking up and taking [facility]01-14-2025 Telephone encounter Note* Telephone Encounter - Amanda Pratt, GLYNN - 05/16/2024 10:19 AM EST Bhavna with [facility] calls to report duplicate therapy between lasix and spironolactone and lasix and hydralazine. Bhavna is asking if provider wants all medications continued. Hydralazine and Spironolactone are on current medication list but prescription not sent to pharmacy. Please review and advise. Bhavna is requesting a call back at [phone]. Amanda Pratt, RN [facility]01-10-2025 Telephone encounter Note* Telephone Encounter - Key Portillo APRN.CARMELINA - 05/12/2024 2:22 PM EST Agree with below. We are repeating BNP lab work in 5-7 days as well to check for this. Thank you, Key Portillo APRN.BRIDGE BUILDER [facility]01-10-2025 Miscellaneous Notes* Telephone Encounter - Key Portillo APRN.CARMELINA - 05/12/2024 2:22 PM EST Agree with below. We are repeating BNP lab work in 5-7 days as well to check for this. Thank you, Key Portillo APRN.BRIDGE BUILDER * Telephone Encounter - Sultana Catalan RN [...] e. Pt verbalizes understanding. documented in this encounterSelect [facility]01-[facility]-2025 Telephone encounter Note * Telephone Encounter - [...] at that vernell e. Pt verbalizes understanding. [facility]01-10-2025 Telephone encounter Note* Telephone Encounter - Jacque Machuca MA - 05/12/2024 1:04 PM EST Pt informed Jacque MachucaALEX [facility]01-10-2025 Miscellaneous Notes* Telephone Encounter - Jacque Machuca MA - 05/12/2024 1:04 PM EST Pt informed Jacqueflorence Machuca MA * Telephone Encounter - Key [...] needed (anxiety attack). Authorizing Provider: KEY PORTILLO APRN.BRIDGE BUILDER PDMP website checked and validated. All prescriptions have been APPROPRIATELY filled. No suspiciousactivity was identified. 05/12/2024 by Key Portillo APRN.CARMELINA * Telephone Encounter - Marisol Cano LPN - 05/12/2024 12:43 PM EST Spoke with pt gave information provided. Pt voices understanding. She states she spoke with you about some ativan yesterday in appointment but nothing was at [facility] when she went. * Telephone Encounter - [...] with decreasing lasix. Thank you, Key Portillo APRN.BRIDGE BUILDER documented in this encounterSelect [facility]-2025 Telephone encounter Note * Telephone Encounter - [...] needed (anxiety attack). Authorizing Provider: KEY PORTILLO APRN.BRIDGE BUILDER PDMP website checked and validated. All prescriptions have been APPROPRIATELY filled. No suspiciousactivity was identified. 05/12/2024 by Key Portillo APRN.BRIDGE BUILDER [facility]01-10-2025 Telephone encounter Note* Telephone Encounter - Marisol Cano LPN - 05/12/2024 12:43 PM EST Spoke with pt gave information provided. Pt voices understanding. She states she spoke with you about some ativan yesterday in appointment but nothing was at [facility] when she went. [facility]01-10-2025 Telephone encounter Note* Telephone Encounter - [...] with decreasing lasix. Thank you, Key Portillo APRN.BRIDGE BUILDER [facility]01-09-2025 History of Present illness Narrative* Key Portillo APRN.BRIDGE BUILDER - 05/11/2024 1:00 PM EST Chief Complaint Patient presents with: Transition Of Care: Was i wfor chf flae was discharged on 05/02/24 HPI Michael Meier is a 84 year old female who presents here today for Above Complaints. Michael is an established patient of Dr. Edd DO. Concerns today... Hospital discharge -- [facility] hospital admission from 04/30-05/02 d/t hypoxia [...] CONDYLE&PLATU MEDIAL&LAT COMPARTMENTS 11/15/2009 Knee replacement, total [facility] ARTHRP KNE CONDYLE&PLATU MEDIAL&LAT COMPARTMENTS 12/30/2009 Right [...] agreeable to treatment plan. Key Abrams APRN.CARMELINA [address] [place] [address] documented in this encounterSelect [facility]-2025 NoteHNO ID: [id number] Author: KEY PORTILLO APRN.CNP Service: ? Author [...] Edd DO. Concerns today... Hospital discharge -- [facility] hospital admission from 04/30-05/02 d/t hypoxia [...] FEM PROSTC AGRFT/ALGRFT Left 07/2016 ARTHRP E CONDYLEANDPLATU MEDIALANDLAT COMPARTMENTS 11/15/2009 Knee replacement, total -Left - [facility] ARTHRP KNE CONDYLEANDPLATU MEDIALANDLAT COMPARTMENTS 12/30/2009 Right knee replaced COLONOSCOPY FLX DX W/COLLJ SPEC WHEN PFRMD 06/29/2017 Colonoscopy EGD 10/17/2020 Dr.Peabody BILLYD W/O [facility] SPEC [...] Shake well before use (more content not included)...[facility] [id number] Telephone encounter Note* Telephone Encounter - Key Portillo APRN.CARMELINA - 05/08/2024 10:47 AM EST Noted. Will address then. Thank you, Key Portillo APRN.BRIDGE BUILDER [facility]01-06-2025 Miscellaneous Notes* Telephone Encounter - Key Portillo APRN.CARMELINA - 05/08/2024 10:47 AM EST Noted. Will address then. Thank you, Key Portillo APRN.BRIDGE BUILDER * Telephone Encounter - Michael Puga DO - 05/08/2024 10:36 AM EST Will have her discuss with Key at office visit Michael Puga DO * Telephone Encounter - Amanda Pratt RN - 05/08/2024 8:59 AM EST Marifer with [facility] HH calls to let provider know that patient is having increasing pain with RLS especially at night. Marifer asking if provider would order medication. Patient not currently taking any medication for RLS. Patient previously scheduled for hospital follow up on 05/11/2024 with Key Portillo. Amanda Pratt, RN documented in this encounterSelect [facility] Telephone encounter Note * Telephone Encounter - Michael Puga DO - 05/08/2024 10:36 AM EST Will have her discuss with Key at office visit Michael Puga DO [facility]01-06-2025 Telephone encounter Note* Telephone Encounter - Amanda Pratt RN - 05/08/2024 8:59 AM EST Marifer with [facility] calls to let provider know that patient is having increasing pain with RLS especially at night. Marifer asking if provider would order medication. Patient not currently taking any medication for RLS. Patient previously scheduled for hospital follow up on 05/11/2024 with Key Portillo. Amanda Pratt RN [facility]01-03-2025 Telephone encounter Note* Telephone Encounter - Michael Puga DO - 05/05/2024 4:40 PM EST Noted Michael Puga DO [facility]01-03-2025 Miscellaneous Notes* Telephone Encounter - Michael Puga DO - 05/05/2024 4:40 PM EST Noted Michael Puga DO * Telephone Encounter - July Marcano RN - 05/05/2024 3:58 PM EST Sergio PT with [facility] called in and reports they will be seeing Pt twice a week for 3 weeks for functional mobility training. documented in this encounterSelect [facility] Telephone encounter Note * Telephone Encounter - July Marcano RN - 05/05/2024 3:58 PM EST Sergio PT with [facility] called in and reports they will be seeing Pt twice a week for 3 weeks for functional mobility training. [facility]01-03-2025 Telephone encounter Note* Telephone Encounter - Jacque Machuca MA - 05/05/2024 8:54 AM EST Suha informed Jacque Machuca MA [facility]01-03-2025 Miscellaneous Notes* Telephone Encounter - Jacque Machuca MA - 05/05/2024 8:54 AM EST Suha informed Jacque Machuca MA * Telephone Encounter - Michael Puga DO - 05/05/2024 8:36 AM EST Ok with orders Michael Puga DO * Telephone Encounter - Aly Tolentino LPN - 05/04/2024 2:24 PM EST Suha from [facility] HH calling with plan of care. Only need to call her back if pcp not agreeable with orders. They will be seeing pt 1x wk for 1 wk then 2xs wk for 3 wks then 1x wk for 1 wk for disease and medication education. Aly Tolentino LPN documented in this encounterSelect [facility]01-03-2025 Telephone encounter Note * Telephone Encounter - Michael Puga DO - 05/05/2024 8:36 AM EST Ok with orders Michael Puga DO [facility]01-02-2025 NoteHNO ID: [id number] Author: Loli ADAMSON RN Service: ? Author Type: Registered Nurse Type: Progress Notes Filed: 05/04/2024 14:41 Note Text: TRANSITION CARE MANAGEMENT (TCM) INITIAL CONTACT Cue Worker Outreach Provider Action/FYI: Pt reports [facility] is going to be visiting pt for PT OT SN Initial contact with patient post discharge, spoke to patient. Patient identified by name and . TRANSITION CARE MANAGEMENT INITIAL OUTREACH DOCUMENTATION: 05/04/2024 Date of Outreach: Outreach Attempt 1: Contact Made Date of Discharge 05/02/2024 SUMMARY: -Pt discharged from [facility] on 05-02-24. -Admitted for: CHF Do [...] records from recent hospitalization: [facility] History of Present illness Narrative* Loli Adamson RN - 05/04/2024 2:31 PM EST TRANSITION CARE MANAGEMENT (TCM) INITIAL CONTACT Cue Worker Outreach Provider Action/FYI: Pt reports [facility] is going to be visiting pt for PT OT SN Initial contact with patient post discharge, spoke to patient. Patient identified by name and . TRANSITION CARE MANAGEMENT INITIAL OUTREACH DOCUMENTATION: 05/04/2024 Date of Outreach: Outreach Attempt 1: Contact Made Date of Discharge 05/02/2024 SUMMARY: -Pt discharged from [facility] on 05-02-24. -Admitted for: CHF Do [...] recent hospitalization: Care Everywhere documented in this encounterSelect [facility] Telephone encounter Note * Telephone Encounter - Aly Tolentino LPN - 05/04/2024 2:24 PM EST Suha from [facility] HH calling with plan of care. Only need to call her back if pcp not agreeable with orders. They will be seeing pt 1x wk for 1 wk then 2xs wk for 3 wks then 1x wk for 1 wk for disease and medication education. Aly Tolentino LPN [facility]01-02-2025 Telephone encounter Note* Telephone Encounter - Milvia [...] 08/30/2024 Please advise. Thank you. Milvia Howard. [facility]01-02-2025 Miscellaneous Notes* Telephone Encounter - Milvia Howard [...] Thank you. Milvia Howard. documented in this encounterSelect Medical [facility]01-02-2025 NotePatient Outreach (FAMPWS) MICHAEL MEIER ([id number]) 1940 F Date Time Provider Department 05/04/24 [facility] During your visit today, we recorded the following information about you: Loli Adamson, RN 05/04/2024 2:41 PM Signed TRANSITION CARE MANAGEMENT (TCM) INITIAL CONTACT Cue Worker Outreach Provider Action/FYI: Pt reports [facility] HH is going to be visiting pt for PT OT SN Initial contact with patient post discharge, spoke to patient. Patient identified by name and . TRANSITION CARE MANAGEMENT INITIAL OUTREACH DOCUMENTATION: 05/04/2024 Date of Outreach: Outreach Attempt 1: Contact Made Date of Discharge 05/02/2024 SUMMARY: -Pt discharged from [facility] on 05-02-24. -Admitted for: CHF Do [...] SULFA (SULFONAMIDE ANTIBIOTICS) 03/17/2001 Comments: hivmyranda VICODIN (HYDROCODONE-ACETAMINOPHE*01/08/2005 5 - Intolerance Comments: dizzy,nausea,vomiting,headache ZITHROMAX (AZITHROMYCIN) 05/20/2017 5 - Intolerance Date Reviewed: 04/10/2024 Reviewed by: Sharon Jarrett APRN.BRIDGE BUILDER - Fully Assessed Reason for Visit: Transition [...] SOLAR LENGINES///DYSCHR (more content not included)...[facility] 05-02-2024 [facility]12-30-2024 Telephone encounter Note* Telephone Encounter - Julianna Cano LPN - 05/01/2024 4:41 PM EST [facility] informed message left on VM. [facility]12-30-2024 Miscellaneous Notes* Telephone Encounter - Julianna Moreno LPN - 05/01/2024 4:41 PM EST [facility] informed message left on VM. * Telephone Encounter - Nunu Gonzalez PA-C - 05/01/2024 4:03 PM EST Verbal order okay for PCP to follow for HH. Nunu Gonzalez PA-C * Telephone Encounter - Constance Ervin LPN - 05/01/2024 2:19 PM EST Larissa with [facility] HH calls to report pt is currently in the hospital with heart failure exacerbation.Pt will most likely be discharged 05/03/24. Pt has HH orders for PT, OT, and Chcf. Larissa is requesting VO that pcp will follow pt while in HH. Call Larissa with VO from pcp. Constance Ervin LPN documented in this encounterSelect Medical [facility]12-[facility]-2024 Telephone encounter Note * Telephone Encounter - Nunu Gonzalez PA-C - 05/01/2024 4:03 PM EST Verbal order okay for PCP to follow for HH. Nunu Gonzalez PA-C [facility]12-30-2024 Telephone encounter Note* Telephone Encounter - Constance Ervin LPN - 05/01/2024 2:19 PM EST Larissa with [facility] HH calls to report pt is currently in the hospital with heart failure exacerbation.Pt will most likely be discharged 05/03/24. Pt has HH orders for PT, OT, and Chcf. Larissa is requesting VO that pcp will follow pt while in HH. Call Larissa with VO from pcp. Constance Ervin LPN [facility]12-29-2024 Evaluation note* Diagnosis Onset Date Resolution Status Admit Date CHF (congestive heart failure) acute April 30, 024 9:27am Hypoxia acute April 30, 2024 9:27am History of permanent cardiac pacemaker placement June 09, 2021 chronic June 01, 2024 12:59pm Paroxysmal atrial fibrillation chronic June 01 12:59pm Sick sinus syndrome chronic 2024 12:59pm [facility] current use of amiodarone acute June 01 1:19pm Pulmonary hypertension acute [facility] 2024 1:19pm Right carotid bruit acute 2024 1:19pm Essential (primary) hypertension chronic June 01 1:19pm History of permanent cardiac pacemaker placement June 09, 2021 chronic June 01, 2024 1:19pm Paroxysmal atrial fibrillation chronic June 01 1:19pm [facility] Work Phone: 1(954) 629-293012-23-2024 Telephone encounter Note* Telephone Encounter - Aly [...] was scheduled 04/27/24 with Key Portillo. Aly Tolnetino LPN [facility]12-23-2024 Miscellaneous Notes* Telephone Encounter - Aly Tolentino [...] Portillo. Aly Tolentino LPN documented in this encounterSelect Medical Specialty [facility]12-19-2024 NoteHNO ID: [id number] Author: SARAH MERCHANT, PT Service: ? Author [...] L2x12' seat 8 2: shuttle leg press [id number]', SL [id number], 5eslutZ9e - increased thigh pain 3: *standing back [...] Session Stop Time : 1335 Sarah Merchant [facility]12-19-2024 History of Present illness Narrative* Sarah [...] L2x12' seat 8 2: shuttle leg press 8jftzeb4', SL 4aspghS72x, 2dczwmY2g - increased thigh pain 3: *standing back [...] 1251 Session Stop Time : 1335 Sarah Hillwig, PT documented in this encounterSelect Medical [facility]ty [facility]12-17-2024 NoteHNO ID: [id number] Author: SARAH MERCHANT PT Service: ? Author [...] for Episode of Care: created on 11/15/23 [facility] in home exercise program. Patient will demonstrate [...] Patient to be seen for Therapeutic exercise (98063), Neuromuscular re-education (43418), Therapeutic activities (77921), Self-fci management (86299), Gait Training (95881), Patient/Family/Caregiver Education, General Conditioning PLAN FOR NEXT [...] UPDATE: Assessment: Michael Deras Alexandruabner demonstrates minimal improvement in rising from a [...] for Episode of Care: created on 11/15/23 [facility] in home exercise program. Patient will demonstrate [...] Patient to be seen for Therapeutic exercise (77311), Neuromuscular re-education (10646), Therapeutic activities (99318), Self-fci management (23240), Gait Training (64856), Patient/Family/Caregiver Education, General Conditioning PLAN FOR NEXT [...] 1420 Sarah Merchant PT documented in this encounterSelect Medical [facility]12-09-2024 History of Present illness Narrative* Sharon Jarrett APRN.BRIDGE BUILDER - 04/10/2024 4:00 PM EST FOLLOW UP VISIT - ENDOSCOPY Michael Meier 1940 [id number] REFERRING PHYSICIAN: No referring provider defined for [...] as needed for worsening/no improvement. Sharon Jarrett APRN.BRIDGE BUILDER documented in this encounterSelect Medical [facility]ty [facility]12-09-2024 NoteHNO ID: [id number] Author: SHARON JARRETT APRN.CARMELINA Service: ? Author Type: Nurse Practitioner Type: Progress Notes Filed: 04/10/2024 16:04 Note Text: FOLLOW UP VISIT - ENDOSCOPY Michael Meier 1940 [id number] REFERRING PHYSICIAN: No referring provider defined for [...] as needed for worsening/no improvement. Sharon Jarrett APRN.[facility]11-29-2024 History and physical note* Raymundo De León MD - 03/31/2024 11:15 AM EST HISTORY AND PHYSICAL Michael Meier : 1940 REFERRING PHYSICIAN: Michael Puga [address] [facility] [place] [address] CHIEF COMPLAINT: Patient presents with: Consult: EGD [...] was 01/[address] De León at [facility] Sedation:Midazolam 4 mg IV, Fentanyl 100 micrograms [...] CONDYLE&PLATU MEDIAL&LAT COMPARTMENTS 11/15/2009 Knee replacement, total [facility] ARTHRP KNE CONDYLE&PLATU MEDIAL&LAT COMPARTMENTS 12/30/2009 Right [...] edited and updated as necessary. Sharon Jarrett APRN.BRIDGE BUILDER UPDATED HISTORY AND PHYSICAL EXAMINATION SERVICE DATE: 03/31/2024 SERVICE TIME: 10:46 AM SENSITIVE EXAMINATION CONSENT: The sensitive examination was discussed with the Patient or Patient's Authorized Casing Mixer. Asapplicable, any other physician, advance practice provider, medical student, or other health professional student that will be observing or involved in the sensitive examination for educational or training purposes was discussed with the Patient or Authorized Casing Mixer. The Patient or Authorized Casing Mixer has agreed to proceed with the sensitive [...] DATE: March 31, 2024 TIME: 10:46 AM [facility]11-29-2024 History and physical note* Raymundo De León MD - 03/31/2024 11:15 AM EST HISTORY AND PHYSICAL Michael Meier : 1940 REFERRING PHYSICIAN: Michael Puga [address] [facility] [place] [address] CHIEF COMPLAINT: Patient presents with: Consult: EGD [...] history of gastric issues. Michael follows with [facility]. Last OV 02/2024- she has had [...] was 01/[address] De León at [facility] Sedation:Midazolam 4 mg IV, Fentanyl 100 micrograms [...] COMPARTMENTS 11/15/2009 Knee replacement, total -Left - [facility] ARTHRP KNE CONDYLE&PLATU MEDIAL&LAT COMPARTMENTS [...] edited and updated as necessary. Sharon Jarrett APRN.BRIDGE BUILDER UPDATED HISTORY AND PHYSICAL EXAMINATION SERVICE DATE: 03/31/2024 SERVICE TIME: 10:46 AM SENSITIVE EXAMINATION CONSENT: The sensitive examination was discussed with the Patient or Patient's Authorized Casing Mixer. Asapplicable, any other physician, advance practice provider, medical student, or other health professional student that will be observing or involved in the sensitive examination for educational or training purposes was discussed with the Patient or Authorized Casing Mixer. The Patient or Authorized Casing Mixer has agreed to proceed with the sensitive [...] 2024 TIME: 10:46 AM documented in this encounterSelect Medical [facility]ty [facility]11-25-2024 Instructions* Patient Instructions* Mary Foster APRN.CARMELINA - 03/27/2024 2:22 PM EST Images from the original note were not included. [facility] PATIENT PREOPERATIVE INSTRUCTIONS Raymundo De León MD has scheduled you for your procedure at this surgery center: [facility]: [phone] -- [address] [place] [address]. Please read below carefully for your personalized [...] office. If you are currently using a adww-iqp-iind injectable or oral medication for diabetes or [...] Procedures: - YOU MUST HAVE A RESPONSIBLE CHARTER COACH DRIVER TAKE YOU HOME. A TANK OFFICER OR NURSING EDUCATION SPECIALIST CANNOT BE MADE A RESPONSIBLE CHARTER COACH DRIVER. - We recommend that a responsible person [...] Advance Directive, please fax a copy to [phone] or email to for it to be [...] day. Mary Foster APRN.CNP documented in this encounterSelect Medical Specialty [facility]11-25-2024 History and physical note * Mary Foster [...] Assessment: c/w statin Cardiac resynchronization therapy pacemaker (RESEARCH LABORATORY MANAGER-P) in place Assessment: s/p 10/2021 ICD placement, [...] large neck Non-male patient STOP-Bang Score: 2 [id number] Score: Age: >=75 Sex: female CHF history: No Hypertension history: Yes Stroke/TIA/thromboembolism history: Yes Vascular disease history: No Diabetes history: No [id number] Score: 6 ARISCAT Score: Age: >80 Preoperative [...] female who is scheduled for colonoscopy at therequest of Dr. Raymundo De León for consultation. My final recommendation will be communicated backto the requesting physician by way of shared medical record or letter. Subjective The patient has the following: COVID-19 Immunization Status Overdue - Covid-19 Vaccine ( season) Overdue since 01/02/2024 10/14/2023 Postponed until 10/13/2024 by Marisol Cano LPN (Declined at this time) 04/05/2023 Imm Admin: COVID-19 vaccine, age 12+ yr (PFIZER-BIONTECH COMIRNAT) 06/04/2022 Postponed until 06/04/2023 by Marisol [...] was 01/[address] De León at [facility] Sedation:Midazolam 4 mg IV, Fentanyl 100 micrograms [...] CAD, CHF, congenital heart defect, DVT/PE, recent DE, open heart surgery and valve surgery. GI: Positive for: GERD (on rx) Negative for: abdominal pain, dysphagia, hepatitis, irritable bowel syndrome, inflammatory bowel disease, liver disease, nausea, vomiting and ETOH >2 drinks/day. : No history of dysuria, frequency or incontinence, stones or chronic kidney disease. No difficulty urinating, nocturia > 1 time per night or hematuria. GROOMING SALON MANAGER: Negative for abnormal vaginal bleeding, abnormal vaginal [...] COMPARTMENTS 11/15/2009 Knee replacement, total -Left - [facility] ARTHRP KNE CONDYLE&PLATU MEDIAL&LAT COMPARTMENTS [...] Prior to Admission medications as of 03/27/24 0683 Medication Sig Last Dose Taking cyanocobalamin (VITAMIN [...] 8760 hour(s)). Recent Results (from the past 45237 hour(s)) ECHO Collection Time: 06/08/22 1:56 PM [...] 27, 2024 TIME: 2:20 PM PAGER/CONTACT #: [facility]-25[facility]24 History and physical note* Mary Foster APRN.CNP - 03/27/2024 2:20 PM EST Images from the original note were not included. [place] [facility] HISTORY [...] Assessment: c/w statin Cardiac resynchronization therapy pacemaker (RESEARCH LABORATORY MANAGER-P) in place Assessment: s/p 10/2021 ICD placement, [...] large neck Non-male patient STOP-Bang Score: 2 [id number] Score: Age: >=75 Sex: female CHF history: No Hypertension history: Yes Stroke/TIA/thromboembolism history: Yes Vascular disease history: No Diabetes history: No [id number] Score: 6 ARISCAT Score: Age: >80 Preoperative [...] Imm Admin: COVID-19 vaccine, age 12+ yr ([employer]) 06/04/2022 Postponed until 06/04/2023 by Marisol Cano [...] was 01/[address] De León at [facility] Sedation:Midazolam 4 mg IV, Fentanyl 100 micrograms [...] CAD, CHF, congenital heart defect, DVT/PE, recent DE, open heart surgery and valve surgery. GI: Positive for: GERD (on rx) Negative for: abdominal pain, dysphagia, hepatitis, irritable bowel syndrome, inflammatory bowel disease, liver disease, nausea, vomiting and ETOH >2 drinks/day. : No history of dysuria, frequency or incontinence, stones or chronic kidney disease. No difficulty urinating, nocturia > 1 time per night or hematuria. GROOMING SALON MANAGER: Negative for abnormal vaginal bleeding, abnormal vaginal [...] COMPARTMENTS 11/15/2009 Knee replacement, total -Left - [facility] ARTHRP KNE CONDYLE&PLATU MEDIAL&LAT COMPARTMENTS [...] 8760 hour(s)). Recent Results (from the past 06524 hour(s)) ECHO Collection Time: 06/08/22 1:56 PM [...] 2:20 PM PAGER/CONTACT #: documented in this encounterSelect Medical Specialty [facility]11-21-2024 NoteHNO ID: [id number] Author: SARAH MERCHANT PT Service: ? Author [...] deficits 2: discussed progress/lack of, goals/expectations for director of residence life Intervention: Patient was provided supervision, independence during [...] 1239 Session Stop Time : [address] [facility] History of Present illness Narrative* Sarah [...] deficits 2: discussed progress/lack of, goals/expectations for director of residence life Intervention: Patient was provided supervision, independence during [...] 1341 Sarah Merchant PT documented in this encounterSelect Medical Specialty [facility]11-18-2024 NoteHNO ID: [id number] Author: SARAH MERCHANT PT Service: ? Author [...] on 11/15/23 through 01/14/24, extended thru 04/17/24 [facility] in home exercise program. Patient will demonstrate [...] Patient to be seen for Therapeutic exercise (71345), Neuromuscular re-education (33980), Therapeutic activities (64645), Self-fci management (39400), Gait Training (62780), Patient/Family/Caregiver Education, General Conditioning PLAN FOR NEXT [...] L3x11' seat 8 2: shuttle leg press 3zogtcLw8', SL 4bandsR/L 20xea (increased difficulty L vs [...] on 11/15/23 through 01/14/24, extended thru 04/17/24 [facility] in home exercise program. Patient will demonstrate [...] Patient to be seen for Therapeutic exercise (84483), Neuromuscular re-education (97897), Therapeutic activities (61635), Self-fci management (17621), Gait Training (07156), Patient/Family/Caregiver Education, General Conditioning PLAN FOR NEXT [...] L3x11' seat 8 2: shuttle leg press 3gsgnqIt3', SL 4bandsR/L 20xea (increased difficulty L vs [...] objective for details, discussed progress/deficits, plans/options for director of residence life Intervention: Patient was educated in proper exercise [...] Neuromuscular Re-Education: 1: standing wt-shifts ant/post with SOCIAL MEDIA SR STRATEGY MANAGER (tendency for posterior LOB) 2: static stance [...] 1502 Sarah Merchant PT documented in this encounterSelect Medical Specialty [facility]11-14-2024 NoteHNO ID: [id number] Author: SARAH MERCHANT PT Service: ? Author [...] wt-shifted R/L 10xea 6: shuttle leg press 9izhecMk7', SL 5bandsR/L 20x (increased difficulty R vs L) 7: shuttle calf raises 9flnlgD43u 8: supine hip ABd with orange TB [...] Session Stop Time : 1329 Sarah Merchant [facility]11-14-2024 History of Present illness Narrative* Sarah [...] wt-shifted R/L 10xea 6: shuttle leg press 3seizoDw3', SL 5bandsR/L 20x (increased difficulty R vs L) 7: shuttle calf raises 9pruaoR20z 8: supine hip ABd with orange TB [...] 1329 Sarah Merchant PT documented in this encounterSelect Medical [facility]ty [facility]11-12-2024 NoteHNO ID: [id number] Author: JOY SUN PTA Service: ? Author Type: Solar Project Manager Type: Progress Notes Filed: 03/14/2024 10:47 Note [...] Nustep seat 8 lvl 2 10 minutes CONCRETE MIXING PLANT LABORER in constant attendence monitoring technique and reviewing HEP 2: shuttle leg press 7hcnmcRa8', SL 4bands 20x 3: shuttle calf raises [...] Session Stop Time : 1045 Joy Sun [facility] History of Present illness Narrative* Joy Sun CONCRETE MIXING PLANT LABORER - 03/14/2024 10:46 AM EST Episode Visit [...] Nustep seat 8 lvl 2 10 minutes CONCRETE MIXING PLANT LABORER in constant attendence monitoring technique and reviewing HEP 2: shuttle leg press 4mqtzkHp7', SL 4bands 20x 3: shuttle calf raises [...] 1045 Joy Sun PTA documented in this encounterSelect Medical [facility]ty [facility]11-11-2024 Telephone encounter Note * Telephone Encounter - Joshua Mcdowell - 03/13/2024 2:43 PM EST 03-31-2024 EGD Elizabeth Mcdowell [facility]11-11-2024 Miscellaneous Notes* Telephone Encounter - Joshua Mcdowell - 03/13/2024 2:43 PM EST 03-31-2024 EGD Elizabeth Mcdowell documented in this encounterSelect Medical Specialty Hospital [facility] [place]11-11-2024 History of Present illness Narrative* Sharon Jarrett APRN.CNP - 03/13/2024 2:30 PM EST HISTORY AND PHYSICAL Michael Meier : 1940 REFERRING PHYSICIAN: Michael Puga [address] [facility] [address] CHIEF COMPLAINT: Patient presents with: Consult: EGD [...] was 01/[address] [facility] León at [facility] Sedation:Midazolam 4 mg IV, Fentanyl 100 micrograms [...] COMPARTMENTS 11/15/2009 Knee replacement, total -Left - [facility] ARTHRP KNE CONDYLE&PLATU MEDIAL&LAT COMPARTMENTS [...] necessary. Sharon Jarrett APRN.CARMELINA documented in this encounterSelect Medical Specialty Hospital - [facility]11-11-2024 NoteHNO ID: [id number] Author: SHARON JARRETT APRN.BRIDGE BUILDER Service: ? Author Type: Nurse Practitioner Type: Progress Notes Filed: 03/13/2024 14:47 Note Text: HISTORY AND PHYSICAL Michael Meier : 1940 REFERRING PHYSICIAN: Michael Puga [address] [facility] [place] [address] CHIEF COMPLAINT: Patient presents with: Consult: EGD [...] history of gastric issues. Michael follows with [facility]. Last OV 02/2024- she has had [...] was 01/[address] De León at [facility] Sedation:Midazolam 4 mg IV, Fentanyl 100 micrograms [...] COMPARTMENTS 11/15/2009 Knee replacement, total -Left - [facility] ARTHRP KATIE MANRIQUEAND (more content not included)...[facility] 03-09-2024 Telephone encounter Note* Telephone Encounter - Sultana Catalan RN - 03/09/2024 3:13 PM EST Called pt and notified. [facility]11-07-2024 Miscellaneous Notes* Telephone Encounter - Sultana Catalan [...] she does. Please advise. documented in this encounterSelect Medical Specialty Hospital - [place]11-06-2024 Telephone encounter Note * Telephone Encounter - Michael Puga DO - 03/08/2024 9:35 PM EST Please inform patient Michael Shah DO Edd [facility]11-06-2024 Telephone encounter Note* Telephone Encounter - Mary Lopez LPN - 03/08/2024 10:01 AM EST Patient does not meet Medicare Guidelines to have the Wheelchair covered by insurance. States that patient needs to require a wheelchair for most of her daily needs. According to OV note they received it does not appear that she does. Please advise. [facility]10-31-2024 NoteHNO ID: [id number] Author: SARAH MERCHANT, PT Service: ? Author [...] L2x15' seat 9 2: shuttle leg press 1rutskIh4', SL 4bandsL 20x, 3uletbG48c 3: shuttle calf raises 6bandsB 10x 4: [...] Session Stop Time : 1334 Sarah Merchant [facility]10-31-2024 History of Present illness Narrative* ShondaSarah, PT - 03/02/2024 3:06 PM EDT Episode [...] L2x15' seat 9 2: shuttle leg press 3wjjzxZh1', SL 4bandsL 20x, 3afvzpQ18g 3: shuttle calf raises 6bandsB 10x 4: [...] 1248 Session Stop Time : 1334 Sarah Merchant, FRANTZ documented in this encounterSelect Medical Specialty Hospital - [place]10-31-2024 Telephone encounter Note * Telephone Encounter - Bhavna Arauz RN - 03/02/2024 1:47 PM EDT Patient calls and notified of below. Voices understanding. Bhavna Arauz RN [facility]10-31-2024 Miscellaneous Notes* Telephone Encounter - Bhavna Arauz RN - 03/02/2024 1:47 PM EDT Patient calls and notified of below. Voices understanding. Bhavna Arauz RN * Telephone Encounter - Jacque Machuca MA - 03/02/2024 1:28 PM EDT [place]axed to [place]. Left message to return call. Please notify patient. Jacque Machuca MA * Telephone Encounter - Michael Puga DO - 03/01/2024 10:50 PM EDT Fax my office note from today and standard [facility] listed andthen notify her Michael Puga DO documented in this encounterSelect Medical Specialty Hospital - [place]10-31-2024 Telephone encounter Note * Telephone Encounter - Jacque Machuca MA - 03/02/2024 1:28 PM EDT Faxed to [place]. Left message to return call. Please notify patient. Jacque Machuca MA [facility]10-30-2024 Telephone encounter Note* Telephone Encounter - Michael Puga DO - 03/01/2024 10:50 PM EDT Fax my office note from today and standard wheelchair to [facility] listed andthen notify her Michael Puga DO [facility]10-30-2024 NoteHNO ID: [id number] Author: MICHAEL PUGA DO Service: ? Author [...] at 1.6 with recent lab check at [place] [facility] in Jan at [facility], she is using her Bipap [...] Chronic dyspnea, has been fully evaluated by [place] whom doesn't feel this is due to [...] CONDYLEANDPLATU MEDIALANDLAT COMPARTMENTS 11/15/2009 Knee replacement, total -[facility] ARTHRP KNE CONDYLEANDPLATU MEDIALANDLAT COMPARTMENTS 12/30/2009 [...] once daily (more content not included)...[facility] 03-01-2024 History of Present illness Narrative* Michael [...] at 1.6 with recent lab check at [place] [facility] in Jan at [facility], she is using her Bipap [...] Chronic dyspnea, has been fully evaluated by [place] whom doesn't feel this is due to [...] COMPARTMENTS 11/15/2009 Knee replacement, total -Left - [facility] ARTHRP KNE CONDYLE&PLATU MEDIAL&LAT COMPARTMENTS [...] plan. See patient instructions. Michael Puga DO [address] [place] [address] documented in this encounterSelect Medical Specialty Hospital - [facility]10-17-2024 NoteHNO ID: [id number] Author: SARAH MERCHANT, PT Service: ? Author [...] REPORT PLAN OF CARE UPDATE: Assessment: Michael J Alexandruabner demonstrates improvements in rising from a chair, [...] on 11/15/23 through 01/14/24, extended thru 04/17/24 [place] in home exercise program. Patient will demonstrate [...] Patient to be seen for Therapeutic exercise (14997), Neuromuscular re-education (48171), Therapeutic activities (76803), Self-fci management (52671), Gait Training (86376), Patient/Family/Caregiver Education, General Conditioning PLAN FOR NEXT [...] hip ABd 20xR 6: shuttle leg press 6rhwlvCv7' (30 reps), SL 5bandsR/L 10xea 7: shuttle calf raises 5bandsB 15x 8: B calf stretch on slant board x1' 9: recheck - see objective for details, discussed progress AND deficits, plans/options for director of residence life Intervention: Patient was educated in proper exercise [...] on 11/15/23 through 01/14/24, extended thru 04/17/24 [place] in home exercise program. Patient will demonstrate [...] Patient to be seen for Therapeutic exercise (49542), Neuromuscular re-education (44441), Therapeutic activities (26626), Self-fci management (07689), Gait Training (94061), Patient/Family/Caregiver Education, General Conditioning PLAN FOR NEXT [...] hip ABd 20xR 6: shuttle leg press 2foxosLj0' (30 reps), SL 5bandsR/L 10xea 7: shuttle calf raises 5bandsB 15x 8: B calf stretch on slant board x1' 9: recheck - see objective for details, discussed progress & deficits, plans/options for director of residence life Intervention: Patient was educated in proper exercise [...] 1640 Sarah Merchant PT documented in this encounterSelect Medical Specialty Hospital [facility]10-14-2024 NoteHNO ID: [id number] Author: WILFRED MCCLELLAN PTA Service: ? Author Type: Solar Project Manager Type: Progress Notes Filed: 02/14/2024 16:35 Note [...] 1322 Session Stop Time : 1404 Wilfred PeggyabramTOSHIADorothea [facility]10-14-20[facility] History of Present illness Narrative* Wilfred Mcclellan, CONCRETE MIXING PLANT LABORER - 02/14/2024 4:33 PM EDT Episode Visit [...] hip extension and hip flexion vs manual wrqalpmrcq89 x each 6: long sitting right /left [...] 1404 Wilfred Mcclellan PTA documented in this encounterSelect Medical Specialty Hospital [facility]10-10-2024 NoteHNO ID: [id number] Author: SARAH MERCHANT PT Service: ? Author [...] L3x10' seat 8 2: shuttle leg press 5ikmuwRi4', 9ehpzlE06g, SL 4bands R/L 20xea 3: shuttle calf raises 2vxbsiB15r 4: B calf stretch on slant board [...] 1241 Session Stop Time : [address] [facility] History of Present illness Narrative* Sarah [...] L3x10' seat 8 2: shuttle leg press 9mfwhlKz9', 3wegbcP47f, SL 4bands R/L 20xea 3: shuttle calf raises 2xuwqfV27z 4: B calf stretch on slant board [...] 1334 Sarah Merchant PT documented in this encounterSelect Medical Specialty [facility]10-07-2024 NoteHNO ID: [id number] Author: SARAH MERCHANT PT Service: ? Author [...] L3x10' seat 8 2: shuttle leg press 8qvlloCi7', SL 4bands R/L 20xea 3: shuttle calf raises 1tzxirD85u 4: ASLR 2#L/R 20xea 5: supine hip [...] Session Stop Time : 1457 Sarah Merchant [facility]10-07-2024 History of Present illness Narrative* Sarah [...] L3x10' seat 8 2: shuttle leg press 9sxncfIo2', SL 4bands R/L 20xea 3: shuttle calf raises 4kyinlH23a 4: ASLR 2#L/R 20xea 5: supine hip [...] Time : 1358 Session Stop Time : 3057 Sarah Merchant PT documented in this encounterSelect Medical Specialty Hospital [facility]09-30-2024 NoteHNO ID: [id number] Author: SARAH MERCHANT PT Service: ? Author [...] at ankles 15x 6: shuttle leg press 0mergwEq9', SL 6 hnvckN98u, 6bqgbjE8p, 8qkkwcU18a 7: shuttle calf raises 8cnebrE89k 8: Nu-step L3x10' seat 8 Skilled Intervention: [...] Session Stop Time : 1512 Sarah Merchant [facility]09-30-2024 History of Present illness Narrative* Sarah [...] at ankles 15x 6: shuttle leg press 0dtwspIa5', SL 6 tbbbtH01o, 2cybjmM8t, 6ovfsnY43k 7: shuttle calf raises 1aksplO86k 8: Nu-step L3x10' seat 8 Skilled Intervention: [...] 1512 Sarah Merchant PT documented in this encounterSelect Medical Specialty Hospital - [facility]09-25-2024 NoteHNO ID: [id number] Author: WILFRED MCCLELLAN PTA Service: ? Author Type: Solar Project Manager Type: Progress Notes Filed: 01/26/2024 18:32 Note [...] patient reports less fatigue today also reports lace and textiles restorer increased her potassium , patient reports increased [...] Center09-25-2024 History of Present illness Narrative* Wilfred Mcclellan, [facility] - 01/26/2024 6:30 PM EDT Episode Visit [...] patient reports less fatigue today also reports lace and textiles restorer increased her potassium , patient reports increased [...] 1600 Wilfred Mcclellan PTA documented in this encounterSelect Medical Specialty Hospital - [facility]09-17-2024 NoteHNO ID: [id number] Author: SARAH MERCHANT PT Service: ? Author [...] on 11/15/23 through 01/14/24, extended thru 04/17/24 [place] in home exercise program. Patient will demonstrate [...] Patient to be seen for Therapeutic exercise (35825), Neuromuscular re-education (68890), Therapeutic activities (36460), Self-fci management (32948), Gait Training (14058), Patient/Family/Caregiver Education, General Conditioning PLAN FOR NEXT [...] AND SOB with activity. has f/u with lace and textiles restorer this month AND PCP next month. says [...] fatigue AND SOB. advised f/u with PCP, lace and textiles restorer, educational administrator prn Skilled Intervention: Patient was educated in [...] on 11/15/23 through 01/14/24, extended thru 04/17/24 [place] in home exercise program. Patient will demonstrate [...] Patient to be seen for Therapeutic exercise (02015), Neuromuscular re-education (01076), Therapeutic activities (57555), Self-fci management (59582), Gait Training (11001), Patient/Family/Caregiver Education, General Conditioning PLAN FOR NEXT [...] & SOB with activity. has f/u with lace and textiles restorer this month & PCP next month. gavin gets very tired walking with WW. walks [...] fatigue & SOB. advised f/u with PCP, lace and textiles restorer, educational administrator prn Skilled Intervention: Patient was educated in [...] 1430 Sarah Merchant PT documented in this encounterSelect Medical Specialty [facility]09-10-2024 Telephone encounter Note * Telephone Encounter - Julianna Cano LPN - 01/11/2024 10:23 AM EDT Order faxed as below. [facility]09-10-2024 Miscellaneous Notes* Telephone Encounter - Julianna Moreno [...] Flores. Carie Lora RN documented in this encounterSelect Medical Specialty Hospital [facility]09-10-2024 Telephone encounter Note * Telephone Encounter - Nunu Gonzalez PA-C - 01/11/2024 9:41 AM EDT Rx ordered, please fax. Nunu Gonzalez PA-C [facility]09-09-2024 Telephone encounter Note* Telephone Encounter - Carie Lora RN - 01/10/2024 2:39 PM EDT Patient calling with request for script for standard wheelchair for weakness and gait instability due to back problems. If agree, please fax script to Kevin Flores. Carie Lora RN [facility]08-12-2024 NoteHNO ID: [id number] Author: SARAH MERCHANT PT Service: ? Author [...] 4: bridging 10x2 5: shuttle leg press 6rpconKn7', SL 5bandsL/R 15xea 6: shuttle calf raises [...] Session Stop Time : 1632 Sarah Merchant [facility]08-12-2024 History of Present illness Narrative* Sarah [...] 4: bridging 10x2 5: shuttle leg press 4nbrokCl9', SL 5bandsL/R 15xea 6: shuttle calf raises [...] 1632 Sarah Merchant PT documented in this encounterSelect Medical Specialty Hospital [facility]08-06-2024 NoteHNO ID: [id number] Author: WILFRED MCCLELLAN PTA Service: ? Author Type: Solar Project Manager Type: Progress Notes Filed: 12/07/2023 17:49 Note [...] : 1650 Session Stop Time : 1730 TOSHIA Graceally signed by Wilfred Mcclellan PTA at 12/07/2023 5:49 PM EDT * Wilfred Mcclellan PTA - 12/07/2023 5:18 PM EDT Program_ID:[id number] Access Code: [email or web address] URL: [email or web address] Date: 12-07-2023 Prepared By: Margoth Mcclellan Program Notes Exercises - Seated Hip Abduction - 1-2 x daily - 5 x weekly - 2-3 sets - 10 reps documented in this encounterSelect Medical Specialty Hospital - [facility]07-31-2024 Instructions* Patient Instructions* iMchael Puga DO - 12/01/2023 2:00 PM EDT Make sure you are taking: Vitamin C 500-100 mg a day Zinc 15-25 mg a day Vitamin D3 at least 1000 international unit(s) a day Vitamin B12 at least 500-1000 mcg a day documented in this encounterSelect Medical Specialty Hospital [facility]07-31-2024 History of Present illness Narrative* Michael Puga DO - 12/01/2023 1:55 PM EDT CC: [...] CONDYLE&PLATU MEDIAL&LAT COMPARTMENTS Comment: Knee replacement, total [facility] 12/30/2009: ARTHRP KNE CONDYLE&PLATU MEDIAL&LAT COMPARTMENTS Comment: [...] plan. See patient instructions. Michael Puga DO [address] [place] [address] documented in this encounterSelect Medical Specialty Hospital [facility]07-26-2024 Telephone encounter Note * Telephone Encounter - Loli Adamson RN - 11/26/2023 8:41 AM EDT Pt returned call and given provider's message below with verbalized understanding. Patient reports her phone on previous call. [facility]07-26-2024 Miscellaneous Notes* Telephone Encounter - Loli Adamson [...] appt with Dr. Puga. Asia Rosales APRN.CNP documented in this encounterSelect Medical Specialty Hospital - [facility]07-26-2024 Telephone encounter Note * Telephone Encounter - Jacque Machuca MA - 11/26/2023 8:24 AM EDT Started to speak with patient and other line disconnected. Please try again. Jacque Machuca MA [facility]07-26-2024 Telephone encounter Note* Telephone Encounter - Asia Rosales APRN.CNP - 11/26/2023 6:55 AM EDT Please let her know that overall no acute concerns with her labs, she can discuss in more detail ather upcoming appt with Dr. Puga. Asia Rosales APRN.CNP [facility] Work Phone: [phone] NoteHNO ID: [id number] Author: SARAH MERCHANT, PT Service: ? Author [...] 844 Session Stop Time : [address] [facility] History of Present illness Narrative* Sarah [...] Ankle Eversion: 4+/5 Gait Gait Device: Cane ([employer] cane) Balance Static Standing Balance: Narrow Base [...] 922 Sarah Merchant PT documented in this encounterSelect Medical Specialty Hospital [facility]07-23-2024 NoteHNO ID: [id number] Author: SARAH MERCHANT PT Service: ? Author [...] weakness/instability with SLS 4: shuttle leg press 9ojkerUe7', SL 5bandsL/R 10xea 5: shuttle calf raises [...] Session Stop Time : 1501 Sarah Merchant [facility]07-23-2024 History of Present illness Narrative* Sarah [...] hipweakness/instability with SLS 4: shuttle leg press 9kulawGr9', SL 5bandsL/R 10xea 5: shuttle calf raises [...] 1501 Sarah Merchant PT documented in this encounterSelect Medical Specialty Hospital [facility]07-15-2024 NoteHNO ID: [id number] Author: SARAH MERCHANT PT Service: ? Author [...] of Care: created on 11/15/23 through 01/14/24 Burke in home exercise program. Patient will demonstrate [...] Planned: 15 Planned Treatment Interventions: Therapeutic exercise (12433), Neuromuscular re-education (34419), Therapeutic activities (45520), Self-fci management (63090), Gait Training (95814), Patient/Family/Caregiver Education, General Conditioning PLAN FOR NEXT [...] of Care: created on 11/15/23 through 01/14/24 Burke in home exercise program. Patient will demonstrate [...] Planned: 15 Planned Treatment Interventions: Therapeutic exercise (09069), Neuromuscular re- education (11846), Therapeutic activities (71214), Self-fci management (15735), Gait Training (42946), Patient/Family/Caregiver Education, General Conditioning PLAN FOR NEXT [...] Session Stop Time : 1723 Sarah Merchant, FRANTZ documented in this encounterSelect Medical Specialty [facility]06-18-2024 Telephone encounter Note * Telephone Encounter - Julianna Cano LPN - 10/19/2023 9:33 AM EDT [facility] informed. D/c Home O2 faxed to [facility]. [facility]06-18-2024 Miscellaneous Notes* Telephone Encounter - Jluianna Moreno LPN - 10/19/2023 9:33 AM EDT [facility] informed. D/c Home O2 faxed to [facility]. * Telephone Encounter - Michael Puag DO - 10/19/2023 6:42 AM EDT Order [...] Colon LPN - 10/18/2023 9:07 AM EDT Bhvana from [facility] Home Health calling patient had seen Key Portillo COFFEE SHOP ATTENDANT on 10/14/2023. She started her on Trazodone 50 mg at bedtime. Patient started Trazodone rx Wednesday night and said she did not sleep at all, not helping. Asking if the dose could be increased or changed to something else? Patientsaid Zolpidem made her feel hung over. Patient uses [facility] for her pharmacy. Aware COFFEE SHOP ATTENDANT is out of the office this week. Patient asking to have oxygen taken out of the household, she is not using it at all. [facility] started her on the oxygen and [employer] is her oxygen supplier. Pending order if wanted. Please call Bhavna back response. Please advise documented in this encounterSelect Medical Specialty [facility]06-18-2024 Telephone encounter Note * Telephone Encounter - [...] at bedtime. Authorizing Provider: MICHAEL PUGA DO [facility]06-17-2024 Telephone encounter Note* Telephone Encounter - Nadine Colon LPN - 10/18/2023 9:07 AM EDT Bhavna from [facility] Home Health calling patient had seen Key Portillo COFFEE SHOP ATTENDANT on 10/14/2023. She started her on Trazodone 50 mg at bedtime. Patient started Trazodone rx Wednesday night and said she did not sleep at all, not helping. Asking if the dose could be increased or changed to something else? Patientsaid Zolpidem made her feel hung over. Patient uses [facility] for her pharmacy. Aware COFFEE SHOP ATTENDANT is out of the office this week. Patient asking to have oxygen taken out of the household, she is not using it at all. [facility] started her on the oxygen and [employer] is her oxygen supplier. Pending order if wanted. Please call Bhavna back response. Please advise [facility]-17-2024 Telephone encounter Note* Telephone Encounter - Marisol [...] Cano LPN October 18, 2023 8:59 AM T [facility]06-17-2024 Miscellaneous Notes* Telephone Encounter - Marisol Cano [...] 18, 2023 8:58 AM documented in this encounterSelect Medical Specialty [facility]06-17-2024 Telephone encounter Note * Telephone Encounter - [...] Yumiko Gomez October 18, 2023 8:58 AM [facility]06-13-2024 History of Present illness Narrative* Key Portillo, MIRIAN.BRIDGE BUILDER - 10/14/2023 1:20 PM EDT Chief Complaint Patient presents with: Transition Of Care HPI Michael Meier is a 83 year old female who presents here today for Above Complaints. Michael is an established patient of Dr. Puga, and myself. Concerns today... Hospital follow-up -- [facility] ER visit on 09/26 d/t SOB. [...] Has one day left of prednisone taper. MCC coming to house weekly -- likely last visit will be on Wednesday. Pt and mcc monitoring O2 saturation. Pt has not been [...] MEDIAL&LAT COMPARTMENTS 11/15/2009 Knee replacement, total -Left [facility] ARTHRP KNE CONDYLE&PLATU MEDIAL&LAT COMPARTMENTS 12/30/2009 [...] 1-dose 60+ series) due on 10/13/2024 Covid-19 Vaccine( - season) due on 10/13/2024 Diabetes Screening due [...] d/t poor sleep. Continue with at home mcc visits. 2. Anxiety - ICD9: 300.00, ICD10: [...] d/t poor sleep. Continue with at home mcc visits. RTO in 1.5 months as scheduled, sooner if needed. Prescription instructions reviewed with patient as applicable. Potential red flag symptoms discussed with the patient. Reviewed appropriate action plan to take if red flag symptoms occur. Patient agreeable to treatment plan. Key Abrams APRN.BRIDGE BUILDER [address] [place] [address] documented in this encounterSelect Medical Specialty [facility]06-10-2024 History of Present illness Narrative* Isabella Michel RN - 10/11/2023 1:16 PM EDT TRANSITION CARE MANAGEMENT (TCM) FOLLOW-UP NOTE Provider Action/FYI Patient identified by name and date of : YES Spoke to patient Discharge Network Status: Iio-ib-Qlakjgu (OON) Discharge Summary: Pt discharged from [facility] on 10/02/23. Admitted for: Shortness of breath Concerns: Pt reports she is doing well and feeling much improved. She is 96% pulse ox on RA. States the nurse with [facility] states her lungs were clear today. has fam med f/u 10/13. Kitchen Clerk plan for next outreach: TCM will continue to follow. IRENE Education Ordered -: No Isabella Michel RN October 11, 2023 1:16 PM documented in this encounterSelect [facility] Telephone encounter Note * Telephone Encounter - Loli Adamson RN - 10/07/2023 10:23 AM EDT Re-faxed CMP order to [facility] per [place] request. Reports they did not receive it yesterday. [facility] Miscellaneous Notes* Telephone Encounter - Loli Adamson RN - 10/07/2023 10:23 AM EDT Re-faxed CMP order to [facility] per Ernestine request. Reports they did [...] - 10/06/2023 12:00 PM EDT Ernestine with [facility] calling, she spoke with patient today. Patient is doing well recovering from thepneumonia other than she has had diarrhea for 3 days. Today is the worst day and she is having a BMevery time she is urinating. Ernestine states the biggest concern would be dehydration. Asking if PCP has any recommendation. Please advise. documented in this encounterSelect [facility]24 Telephone encounter Note * Telephone Encounter - Katharine Paul MA - 10/07/2023 9:14 AM EDT Spoke Ernestine and faxed order [facility] Telephone encounter Note* Telephone Encounter - Michael Puga DO - 10/06/2023 10:41 PM EDT Ok to check labs as ordered below If not improving, then will need stool studies/C diff testing Michael Puga DO [facility]06-[facility]24 Telephone encounter Note* Telephone Encounter - Mary Lopez LPN - 10/06/2023 12:00 PM EDT Ernestine with [facility] calling, she spoke with patient today. Patient is doing well recovering from thepneumonia other than she has had diarrhea for 3 days. Today is the worst day and she is having a BMevery time she is urinating. Ernestine states the biggest concern would be dehydration. Asking if PCP has any recommendation. Please advise. [facility] Telephone encounter Note* Telephone Encounter - Katharine Paul MA - 10/06/2023 9:14 AM EDT Nurse from [facility] was notified Katharine Paul MA [facility] Miscellaneous Notes* Telephone Encounter - Katharine Paul MA - 10/06/2023 9:14 AM EDT Nurse from [facility] was notified Katharine Paul MA * Telephone Encounter - Michael Puga DO - 10/06/2023 9:01 AM EDT Please make sure her Powderer is aware of her BLOOD PRESSURE elevation [...] EDT -Bhavna reports pt was admitted to [facility] nursing today. Bhavna reports Nursing will [...] message/orders. Constance Ervin LPN documented in this encounterSelect Medical [facility]ty [facility]06-[facility]-2024 Telephone encounter Note * Telephone Encounter - Michael Puga DO - 10/06/2023 9:01 AM EDT Please make sure her Powderer is aware of her BLOOD PRESSURE elevation [...] cold/allergy symptoms. Authorizing Provider: MICHAEL PUGA DO [facility]06-03-2024 Telephone encounter Note* Telephone Encounter - Constance Ervin LPN - 10/04/2023 3:52 PM EDT -Bhavna reports pt was admitted to [facility] nursing today. Bhavna reports Nursing will [...] Bhavna with provider message/orders. Constance Ervin LPN [facility]06-03-2024 History of Present illness Narrative* Magaly Puri MA - 10/04/2023 11:17 AM EDT POPULATION HEALTH NAVIGATION OUTREACH Action/FYI [facility] Hospital Discharge Follow up. TCM Eligible until 10/16/23. Pt cell [phone] Spoke with patient; scheduled appt Reason for Outreach Community Monitoring/Network Navigator Pools & Phone Line: [facility] Patient Contacted: Spoke to patient/parent/or legal guardian [...] rx at discharge, doing breathing treatments diligently. [facility] nursing to visit today. Encouraged pt to bring DC papers to PCP f/u Navigation Team Please assist with scheduling [facility] Hospital Discharge Follow up. TCM Eligible until 10/16/23. Pt [phone] Thank you SUMMARY: Discharge Network Status: [id number] (OON) Discharge Pt discharged from [facility] on 10/02/23. Admitted for: Shortness of breath [...] TCM Home Visit Referral Source of Stratification: [facility] Hospital Admission Status: Discharged Readmission Risk Score: [...] RN and I am calling from the [facility] on behalf of yourPCP, Michael Puga, DO [...] like to speak with a social work steamfitter apprentice to help give you support for any [...] I will send your request to a video game tester who will contact and assist you with that appointment. This will give you an opportunity to ask any questions or address any concerns youmay have with your PCP. Inform the patient that if they have any questions or concerns prior to that appointment, to call their PCP's office right away. ACTION TAKEN: Patient desires an appointment - Routed to [facility] [[phone]] for schedulingtelehealth visit (telephonic, virtual visit, or [...] 04, 2023 10:51 AM documented in this encounterSelect Medical [facility]ty [facility]05-31-2024 Telephone encounter Note * Telephone Encounter - Jacque Machuca MA - 10/01/2023 3:36 PM EDT Larissa informed. Jacque Machuca MA [facility]-31-2024 Miscellaneous Notes* Telephone Encounter - Jacque Machuca MA - 10/01/2023 3:36 PM EDT Larissa informed. Jacque Machuca MA * Telephone Encounter - Key Portillo APRN.CNP - 10/01/2023 2:39 PM EDT Yes, PCP will follow. Thank you, Key Portillo APRN.CARMELINA * Telephone Encounter - Mary Lopez LPN - 10/01/2023 11:49 AM EDT Larissa from [facility] calling, patient is being discharged from [facility] tomorrow. She was referred for [facility] for O2 management. They plan to see patient Wednesday. Asking if PCP is willing to follow.Please advise. documented in this encounterSelect Medical [facility]ty [facility]05-31-2024 Telephone encounter Note * Telephone Encounter - Key Portillo APRN.CNP - 10/01/2023 2:39 PM EDT Yes, PCP will follow. Thank you, Key Portillo APRN.BRIDGE BUILDER [facility]-31-2024 Telephone encounter Note* Telephone Encounter - Mary Lopez LPN - 10/01/2023 11:49 AM EDT Larissa from [facility] calling, patient is being discharged from [facility] tomorrow. She was referred for [facility] for O2 management. They plan to see patient Wednesday. Asking if PCP is willing to follow.Please advise. [facility] History of Present illness Narrative* Michael Puga, [...] have symptoms. Has recently seen Dr. Hickey Powderer and had repeat ECHOand other cardiac testing [...] things together such as going to see [place] [employer] and go out to eat. Abnormal [...] -Left - [facility] ARTHRP KNE CONDYLE&PLATU MEDIAL&LAT [...] vaccine - ICD9: V04.89, ICD10: Z23 - [employer] COVID-19 VACCINE ( [place]) AGE 12+ YR [...] - ICD9: 496, ICD10: J44.9 F/u with Bridges Supervisor 8. IFG (impaired fasting glucose) - ICD9: [...] plan. See patient instructions. Michael Puga DO [address] [place] [address] documented in this encounterSelect Medical Specialty [facility]11-30-2023 Miscellaneous Notes* Telephone Encounter - Nadine Colon LPN - 04/01/2023 4:20 PM EST Phoned patient and went over notes from Dr Puga with understanding. * Telephone Encounter - Michael Puga DO - 03/31/2023 8:32 PM EST We called the lace and textiles restorer office but she will need to further discuss with the specialist as well Michael Puga DO * Telephone Encounter - Loli Adamson RN - 03/31/2023 2:45 PM EST Patient asking if pcp ever communicated with Dr. Hickey about her diltiazem making her tired. Pleaseadvise patient. documented in this encounterSelect Medical [facility]ty [facility]09-11-2023 Miscellaneous Notes* Telephone Encounter - Amanda Pratt RN - 01/11/2023 11:25 AM EDT Order and demographics faxed to Dr. Alcala. Patient notified. * Telephone Encounter - Key Portillo APRN.CNP - 01/11/2023 10:18 AM EDT Order placed. Please fax. Thank you, Key Portillo APRN.CARMELINA * Telephone Encounter - Amanda Pratt RN - 01/11/2023 9:57 AM EDT Patient calls to report that at last OV it was discussed that patient needed to have a sleep study done. Patient requesting to have done with Dr. Alcala and needs to have order/reason for testing faxed to [phone]. Noted referral to pulmonary medicine which was completed but no order for sleep study. Not pended. Wasn't sure what provider wanted. Amanda Pratt RN documented in this encounterSelect Medical Specialty [facility]08-31-2023 Miscellaneous Notes* Telephone Encounter - Chloe Castro LPN - 12/31/2022 8:43 AM EDT Spoke with pt and information listed below given. Pt verbalizes understanding. Transferred pt to video game tester to get apt booked. Chloe Castro LPN [...] I would like her to see the Bridges Supervisor for opinion to determine if any chance ofasthma or COPD present Michael Puga DO documented in this encounterSelect Medical Specialty [facility]08-28-2023 History of Present illness Narrative* Lexi Peacock RPFT - 12/28/2022 2:00 PM EDT PULM FUNCTION SMARTBLOCK: Provider: Michael Puga DO Assisting Tech: Lexi Peacock RPFT Spirometry w/BD: 1 documented in this encounterSelect Medical Specialty [facility]08-22-2023 History of Present illness Narrative* Michael Puga [...] he was just recently moved into a senior care. + fatigue, admits that she doesn't want [...] hydrochlorothiazide which dose was recently increased by Powderer. Feels this doesn't make her feel well. Fatigue symptoms, feels she is more isolated for the last 2 years since covid 19 pandemic and limitations with getting out with friends. Also brother Serg is in senior care/ECF now and she is home alone. Has [...] have symptoms. Has recently seen Dr. Hickey Powderer and had repeat ECHOand other cardiac testing [...] COMPARTMENTS 11/15/2009 Knee replacement, total -Left - [facility] ARTHRP KNE CONDYLE&PLATU MEDIAL&LAT COMPARTMENTS [...] See patient instructions. Michael Puga DO [address] [place] [address] documented in this encounterSelect Medical [facility]ty [facility]05-31-2023 Miscellaneous Notes* Telephone Encounter - Asia Rosales [...] 09/29/2022 9:37 AM EDT Pharmacy verified in [facility] Patient has been identified by [...] advise. Yvonne Nix Pss documented in this encounterSelect Medical Specialty [facility]02-27-2023 Miscellaneous Notes* Telephone Encounter - Julianna Valladares [...] patient. Julianna Valladares Pss documented in this encounterSelect Medical Specialty [facility]02-20-2023 Instructions* Patient Instructions* Michael Puga DO - 06/22/2022 12:14 PM EST STOP Metformin medication Increase fluid intake to at least 60 oz of water a day Increase protein intake in your diet- protein drink daily Increase iron supplement to twice a day with a meal documented in this encounterSelect Medical Specialty [facility]02-20-2023 History of Present illness Narrative* Michael Puga [...] he was just recently moved into a senior care. + fatigue, admits that she doesn't want [...] hydrochlorothiazide which dose was recently increased by Powderer. Feels this doesn't make her feel well. Fatigue symptoms, feels she is more isolated for the last 2 years since covid 19 pandemic and limitations with getting out with friends. Also brother Serg is in senior care/ECF now and she is home alone. Has [...] -Left - [facility] ARTHRP KNE CONDYLE&PLATU MEDIAL&LAT [...] plan. See patient instructions. Michael Puga DO [address] [place] [address] documented in this encounterSelect Medical [facility]ty [facility]02-08-2023 Miscellaneous Notes* Telephone Encounter - Carie Lora RN - 06/10/2022 12:43 PM EST Spoke with patient. Given message from provider's office. Patient verbalizes understanding. Carie Lora RN * Telephone Encounter - Jacque Machuca - 06/10/2022 11:49 AM EST Left message for patient to return call. [facility] 06/10/2022 HARIS Machuca * Telephone Encounter - Key Portillo APRN.CNP - 06/10/2022 10:56 AM EST Please call patient and let her know that ECHO shows no acute concerns. I have no ECHO in our system to compare to. Please fax this result to Dr. Hickey's office for review. Thank you, Key Portillo APRN.CARMELINA documented in this encounterSelect Medical Specialty [facility]02-06-2023 Miscellaneous Notes* Telephone Encounter - Jacque Machuca [...] days with new BP medication. Thank you, eKy Portillo APRN.CNP * Telephone Encounter - Jacque [...] still running high? Thank you, Key Portillo APRN.CARMELINA documented in this encounterSelect Medical Specialty [facility]02-06-2023 Miscellaneous Notes* Telephone Encounter - Key Portillo APRN.CARMELINA - 06/08/2022 7:48 AM EST I agree with 25 mg tablets. Thank you, Key Portillo APRN.CARMELINA * Telephone Encounter - Nadine Colon LPN - 06/05/2022 3:09 PM EST Stephy from [facility] pharmacy calling asking about HCTZ 12.5 [...] phone pharmacy with reply. documented in this encounterSelect Medical Specialty [facility]02-02-2023 Instructions* Patient Instructions* Key Portillo APRN.CNP - 06/04/2022 3:07 PM EST Mounjaro --- weekly Trulcity -- Weekly Victoza -- daily Saxenda -- Daily Start HCTZ 12.5 mg daily for BP and swelling in legs. Follow-up in 1 month to reassess BP. Will assess GLP-1 injection at this time as well. Blood work today. EKG today. Schedule ECHO documented in this encounterSelect Medical Specialty [facility]02-02-2023 History of Present illness Narrative* Key Portillo [...] CONDYLE&PLATU MEDIAL&LAT COMPARTMENTS 11/15/2009 Knee replacement, total -[facility] ARTHRP KNE CONDYLE&PLATU MEDIAL&LAT COMPARTMENTS 12/30/2009 [...] Patient agreeable to treatment plan. Key Abrams APRN.BRIDGE BUILDER [address] [place] [address] documented in this encounterSelect Medical Specialty [facility]01-31-2023 History of Present illness Narrative* Anita Box MA - 06/02/2022 1:51 PM EST POPULATION HEALTH NAVIGATION OUTREACH Action/FYI [facility] Call in. Received warm transfer from Nurse. Magaly Fontana RN Patient needs: Apt with PCP/Team [...] 02, 2022 1:53 PM documented in this encounterSelect Medical Specialty [facility]01-31-2023 Miscellaneous Notes* Telephone Encounter - Magaly Fontana [...] Mei, and possible need to speak with die keeper/safety specialist. Hello, you've reached [facility], my name is Magaly Fontana RN, I'm a registered nurse, and we [...] breakfast. Requesting glucometer meter and supplies from [facility] [place] Based on what you've told me, I do recommend that you: Routed to Navigation Routed to CD PCC Do you understand my recommendations? (After [...] : N/A Protocols used: Weakness (Generalized) and [id number] documented in this encounterSelect Medical Specialty [facility]12-27-2022 Miscellaneous Notes* Telephone Encounter - Julianna Cano [...] advise, Bhavna Arauz RN documented in this encounterSelect Medical Specialty [facility]12-20-2022 History of Present illness Narrative* Michael Puga, - 04/21/2022 4:53 PM EST CC: Michael [...] he was just recently moved into a senior care. + fatigue, admits that she doesn't want [...] hydrochlorothiazide which dose was recently increased by Powderer. Feels this doesn't make her feel well. Fatigue symptoms, feels she is more isolated for the last 2 years since covid 19 pandemic and limitations with getting out with friends. Also brother Serg is in senior care/ECF now and she is home alone. Has [...] these. Atrial fibrillation, hx of CAD, seeing Powderer regularly Insomnia, long standing, thinks this is [...] COMPARTMENTS 11/15/2009 Knee replacement, total -Left - [facility] ARTHRP KNE CONDYLE&PLATU MEDIAL&LAT COMPARTMENTS [...] agreed with the plan. See patient instructions. Michale Puga DO [address] [place] [address] documented in this encounterSelect Medical Specialty [facility]10-17-2022 History of Present illness Narrative* Michael Puga [...] he was just recently moved into a senior care. + fatigue, admits that she doesn't want [...] hydrochlorothiazide which dose was recently increased by Powderer. Feels this doesn't make her feel well. Fatigue symptoms, feels she is more isolated for the last 2 years since covid 19 pandemic and limitations with getting out with friends. Also brother Serg is in senior care/ECF now and she is home alone. Has [...] -Left - [facility] ARTHRP KNE CONDYLE&PLATU MEDIAL&LAT [...] plan. See patient instructions. Michael Puga DO [address] [place] [address] documented in this encounterSelect Medical Specialty [facility]09-16-2022 History of Present illness Narrative* Raymundo De [...] needed at this time. documented in this encounterSelect Medical Specialty [facility]09-08-2022 History and physical note * Raymundo De [...] COMPARTMENTS 11/15/2009 Knee replacement, total -Left - [facility] ARTHRP KNE CONDYLE&PLATU MEDIAL&LAT COMPARTMENTS [...] entered by the nurse and reviewed by nm Nursing Notes: Portia Camarillo RN 12/18/2021 3:15 [...] This note will be forwarded to Dr. Michale Puga DO. Return to Clinic: The patient [...] as indicated on the consent form. Raymundo P Lito III, MD Note Details UPDATED HISTORY AND [...] 2022 TIME: 1:00 PM documented in this encounterSelect Medical Specialty Hospital [facility]09-08-2022 Nurse Note* Nyla Fraga RN - 01/08/2022 2:05 PM EDT Patient arrived laying on left side. States that she is not having any pain at this time. Patient'sabdomen appears to be nondistended and soft at this time. documented in this encounterSelect Medical Specialty [facility]08-31-2022 Miscellaneous Notes* Telephone Encounter - Josuha King - 12/31/2021 11:49 AM EDT Received last note and Pacer check from [facility]. Scanned into [employer] and given to [facility] nurses to review Joshua King documented in this encounterSelect Medical Specialty Hospital - [facility]08-18-2022 History of Present illness Narrative* Raymundo De León MD - 12/18/2021 3:18 PM EDT HISTORY AND PHYSICAL Michael Meier 1940 REFERRING [...] -Left - [facility] ARTHRP KNE CONDYLE&PLATU MEDIAL&LAT [...] entered by the nurse and reviewed by nm Nursing Notes: Portia Camarillo RN 12/18/2021 3:15 [...] De León III, MD documented in this encounterSelect Medical Specialty [facility]08-18-2022 Nurse Note* Portia Camarillo RN - 12/18/2021 [...] 06/29/2017 Portia Camarillo RN documented in this encounterSelect Medical Specialty Hospital [facility]06-20-2022 History of Present illness Narrative* Nunu Gonzalez [...] sooner. Nunu Gonzalez PA-C documented in this encounterSelect Medical Specialty Hospital [facility]02-18-2022 Miscellaneous Notes* Telephone Encounter - Jacque Dumont Ma - 06/20/2021 8:08 AM EST Pt notified and verbalized understanding Jacque Dumont Ma * Telephone Encounter - Asia Rosales APRN.CNP - 06/19/2021 5:43 PM EST Please let Michael know that her lab results look good, no concerns. Asia Rosales APRN.CNP documented in this encounterSelect Medical Specialty [facility]02-07-2022 Evaluation note* Diagnosis Onset Date Resolution Status [...] Paroxysmal atrial fibrillation chronic Sick sinus syndrome [facility] Work Phone: [phone]) 395-283406-17-2021 History of Past illness Narrative* Problem Noted [...] Last Assessment & Plan: Dx. after [facility] 2009 Actinic keratosis 01/20/2007 03/11/2015 [...] of this encounter (statuses as of 09/02/2021) [facility] History of Past illness Narrative* Problem Noted [...] Last Assessment & Plan: Dx. after [facility] 2009 Actinic keratosis 01/20/2007 03/11/2015 [...] of this encounter (statuses as of 09/03/2021) [facility] History of Past illness Narrative* Problem Noted [...] Last Assessment & Plan: Dx. after [facility] 2009 Actinic keratosis 01/20/2007 03/11/2015 [...] of this encounter (statuses as of 10/20/2021) [facility] History of Past illness Narrative* Problem Noted [...] Last Assessment & Plan: Dx. after [facility] 2009 Actinic keratosis 01/20/2007 03/11/2015 [...] of this encounter (statuses as of 12/21/2021) [facility] History of Past illness Narrative* Problem Noted [...] Last Assessment & Plan: Dx. after [facility] 2010 Actinic keratosis 01/20/2007 03/11/2015 [...] of this encounter (statuses as of 12/31/2021) [facility] History of Past illness Narrative* Problem Noted [...] Last Assessment & Plan: Dx. after [facility] 2009 Actinic keratosis 01/20/2007 03/11/2015 [...] of this encounter (statuses as of 01/09/2022) [facility] History of Past illness Narrative* Problem Noted [...] Last Assessment & Plan: Dx. after [facility] 2009 Actinic keratosis 01/20/2007 03/11/2015 [...] of this encounter (statuses as of 01/16/2022) [facility] History of Past illness Narrative* Problem Noted [...] Last Assessment & Plan: Dx. after [facility] 2009 Actinic keratosis 01/20/2007 03/11/2015 [...] of this encounter (statuses as of 02/17/2022) [facility] History of Past illness Narrative* Problem Noted [...] Last Assessment & Plan: Dx. after [facility] 2009 Actinic keratosis 01/20/2007 03/11/2015 [...] of this encounter (statuses as of 04/21/2022) [facility] History of Past illness Narrative* Problem Noted [...] Last Assessment & Plan: Dx. after [facility] 2009 Actinic keratosis 01/20/2007 03/11/2015 [...] of this encounter (statuses as of 05/03/2022) [facility] History of Past illness Narrative* Problem Noted [...] Last Assessment & Plan: Dx. after [facility] 2009 Actinic keratosis 01/20/2007 03/11/2015 [...] of this encounter (statuses as of 06/02/2022) [facility] History of Past illness Narrative* Problem Noted [...] Last Assessment & Plan: Dx. after [facility] 2009 Actinic keratosis 01/20/2007 03/11/2015 [...] of this encounter (statuses as of 06/04/2022) [facility] History of Past illness Narrative* Problem Noted [...] Last Assessment & Plan: Dx. after [facility] 2009 Actinic keratosis 01/20/2007 03/11/2015 [...] of this encounter (statuses as of 06/08/2022) [facility] History of Past illness Narrative* Problem Noted [...] Last Assessment & Plan: Dx. after [facility] 2009 Actinic keratosis 01/20/2007 03/11/2015 [...] of this encounter (statuses as of 06/10/2022) [facility] History of Past illness Narrative* Problem Noted [...] Last Assessment & Plan: Dx. after [facility] 2009 Actinic keratosis 01/20/2007 03/11/2015 [...] of this encounter (statuses as of 06/23/2022) [facility] History of Past illness Narrative* Problem Noted [...] Last Assessment & Plan: Dx. after [facility] 2009 Actinic keratosis 01/20/2007 03/11/2015 [...] of this encounter (statuses as of 06/30/2022) [facility] History of Past illness Narrative* Problem Noted [...] Last Assessment & Plan: Dx. after [facility] 2009 Actinic keratosis 01/20/2007 03/11/2015 [...] of this encounter (statuses as of 10/01/2022) [facility] History of Past illness Narrative* Problem Noted [...] Last Assessment & Plan: Dx. after [facility] 2009 Actinic keratosis 01/20/2007 03/11/2015 [...] of this encounter (statuses as of 12/23/2022) [facility] History of Past illness Narrative* Problem Noted [...] Last Assessment & Plan: Dx. after [facility] 2009 Actinic keratosis 01/20/2007 03/11/2015 [...] of this encounter (statuses as of 12/29/2022) [facility] History of Past illness Narrative* Problem Noted [...] Last Assessment & Plan: Dx. after [facility] 2009 Actinic keratosis 01/20/2007 03/11/2015 [...] of this encounter (statuses as of 12/31/2022) [facility] History of Past illness Narrative* Problem Noted [...] Last Assessment & Plan: Dx. after [facility] 2009 Actinic keratosis 01/20/2007 03/11/2015 [...] of this encounter (statuses as of 01/11/2023) [facility] History of Past illness Narrative* Problem Noted [...] Last Assessment & Plan: Dx. after [facility] 2010 Actinic keratosis 01/20/2007 03/11/2015 [...] of this encounter (statuses as of 03/07/2023) [facility] History of Past illness Narrative* Problem Noted [...] Last Assessment & Plan: Dx. after [facility] 2009 Actinic keratosis 01/20/2007 03/11/2015 [...] of this encounter (statuses as of 04/02/2023) [facility] History of Past illness Narrative* Problem Noted [...] Last Assessment & Plan: Dx. after [facility] 2010 Actinic keratosis 01/20/2007 03/11/2015 [...] of this encounter (statuses as of 04/08/2023) [facility] Waleska Phillips [facility] Note Date/Time December 03, 2024 2:5 5pm [facility] Medical Records Department [address] [place] [address] Instructions for Home/Discharge Instructions 12/03/24 1438 MR#: [id number] Acct: [id number] Name: MICHAEL MEIER Rep #:[id number] 3 : 1940 84 From: Waleska Phillips [...] schedule an appointment for your tremors (ph [phone]) -Please call your primary care provider's office [...] can be placed): Inpatient Rehab Unit/Facility 12/03/24 0166<Electronically signed by Waleska Phillips MD>Waleska Phillips MD CC: Dr. Tacho Davis DO; Dr. Michael Puga DO; Dr. Jonny Vicente MD ~ [facility] Work Phone: Evaluation note* Diagnosis Urinary frequency- Primary Glucosuria Glycosuria [facility]* Diagnosis Gastroesophageal reflux disease with esophagitis without hemorrhage- Primary [facility]* Diagnosis Gastroesophageal reflux disease, unspecified whether esophagitis present- Primary Gastroesophageal reflux disease with esophagitis without hemorrhage documented in this encounter [facility] note* Diagnosis Gastroesophageal reflux disease with esophagitis without hemorrhage- Primary [facility]* Diagnosis Dysthymia- Primary Dysthymic disorder Need for influenza vaccination Need for prophylactic vaccination and inoculation against influenza Arthritis, multiple joint involvement Unspecified arthropathy, multiple sites IFG (impaired fasting glucose) Impaired fasting glucose Obesity, Class II, BMI 35-39.9 Obesity, unspecified Fatigue, unspecified type Iron deficiency Iron deficiency anemia, unspecified documented [facility]* Diagnosis Dysthymia- Primary Dysthymic disorder Situational insomnia Transient disorder of initiating or maintaining sleep Arthritis, multiple joint involvement Unspecified arthropathy, multiple sites IFG (impaired fasting glucose) Impaired fasting glucose Obesity, Class II, BMI 35-39.9 Obesity, unspecified Fatigue, unspecified type Iron deficiency Iron deficiency anemia, unspecified documented [facility]* Diagnosis Fatigue, unspecified type- Primary SOB (shortness of breath) on exertion Shortness of breath Hyperlipidemia, unspecified hyperlipidemia type Obesity, Class II, BMI 35-39.9 Obesity, unspecified IFG (impaired fasting glucose) Impaired fasting glucose Iron deficiency anemia, unspecified iron deficiency anemia type Vitamin D deficiency Unspecified vitamin D deficiency Bilateral leg edema Edema Primary hypertension Unspecified essential hypertension [facility]* Diagnosis Iron deficiency- Primary Iron deficiency [...] arthropathy, multiple sites [facility] Diagnosis Situational insomnia Transient disorder of initiating or maintaining sleep Situational mixed anxiety and depressive disorder Adjustment disorder with mixed anxiety and depressed mood [facility] Diagnosis TIA (transient ischemic attack) Unspecified transient cerebral ischemia Hyperlipidemia, unspecified hyperlipidemia type Anxiety Anxiety state, unspecified [facility]* Diagnosis WELCH (dyspnea on exertion)- Primary Other dyspnea and respiratory abnormality Fatigue, unspecified type Obesity, Class II, BMI 35-39.9 Obesity, unspecified IFG (impaired fasting glucose) Impaired fasting glucose Vitamin B12 deficiency Other B-complex deficiencies Primary hypertension Unspecified essential hypertension Disorder of carotid artery (HCC) Unspecified disorders of arteries and arterioles [facility] Diagnosis WELCH (dyspnea on exertion) Other dyspnea and respiratory abnormality [facility]* Diagnosis Obstructive lung disease (HCC)- Primary Chronic airway obstruction, not elsewhere classified WELCH (dyspnea on exertion) Other dyspnea and respiratory abnormality [facility] Diagnosis Fatigue, unspecified type- Primary [facility] Diagnosis WELCH (dyspnea on exertion) Other dyspnea and respiratory abnormality [facility] Diagnosis Subclinical hypothyroidism- Primary Other specified [...] trunk, except scrotum [facility]* Diagnosis Diarrhea, unspecified type- Primary [facility]* Diagnosis Hospital discharge follow-up- Primary Other [...] Unspecified essential hypertension [facility]* Diagnosis Situational insomnia Transient disorder of initiating or maintaining sleep Situational mixed anxiety and depressive disorder Adjustment disorder with mixed anxiety and depressed mood [facility]* Diagnosis Chronic respiratory failure with hypoxia (HCC)- Primary Chronic respiratory failure Sleep disturbances Sleep disturbance, unspecified [facility]* Diagnosis Weakness- Primary Other malaise and fatigue Difficulty walking Difficulty in walking Imbalance Abnormality of gait [facility]* Diagnosis Weakness- Primary Other malaise and fatigue Difficulty walking Difficulty in walking Imbalance Abnormality of gait [facility]* Diagnosis Weakness- Primary Other malaise and fatigue Difficulty walking Difficulty in walking Imbalance Abnormality of gait [facility]* Diagnosis Acute bronchitis, unspecified organism- [...] trunk, except scrotum [facility]* Diagnosis Weakness- Primary Other malaise and fatigue [facility]* Diagnosis Weakness- Primary Other malaise and fatigue Difficulty walking Difficulty in walking Imbalance Abnormality of gait [facility]* Diagnosis Arthritis, multiple joint involvement- Primary Unspecified arthropathy, multiple sites Spinal stenosis of lumbar region without neurogenic claudication Spinal stenosis, lumbar region, without neurogenic claudication [facility]* Diagnosis Weakness- Primary Other malaise and fatigue Imbalance Abnormality of gait Difficulty walking Difficulty in walking [facility]* Diagnosis Weakness- Primary Other malaise and fatigue Imbalance Abnormality of gait [facility]* Diagnosis Weakness- Primary Other malaise and fatigue Imbalance Abnormality of gait Difficulty walking Difficulty in walking [facility]* Diagnosis Weakness- Primary Other malaise and fatigue Imbalance Abnormality of gait Difficulty walking Difficulty in walking [facility] Diagnosis Weakness- Primary Other malaise and fatigue Imbalance Abnormality of gait [facility]* Diagnosis Difficulty walking- Primary Difficulty in walking Imbalance Abnormality of gait Weakness Other malaise and fatigue [facility]* Diagnosis Arthritis, multiple joint involvement- Primary Unspecified arthropathy, multiple sites Anxiety Anxiety state, unspecified Need for influenza vaccination Need for prophylactic vaccination and inoculation against influenza Epigastric abdominal pain Abdominal pain, epigastric Obstructive lung disease (HCC) Chronic airway obstruction, not elsewhere classified Gait abnormality Abnormality of gait Imbalance Abnormality of gait [facility] Diagnosis Difficulty walking- Primary Difficulty in walking Imbalance Abnormality of gait Weakness Other malaise and fatigue [facility] Diagnosis Epigastric abdominal pain- Primary Abdominal pain, epigastric Pulmonary hypertension (HCC) Other chronic pulmonary heart diseases [facility]* Diagnosis Difficulty walking- Primary Difficulty in walking Imbalance Abnormality of gait Weakness Other malaise and fatigue [facility]* Diagnosis Difficulty walking- Primary Difficulty in walking Imbalance Abnormality of gait Weakness Other malaise and fatigue [facility]* Diagnosis Difficulty walking- Primary Difficulty in walking Imbalance Abnormality of gait Weakness Other malaise and fatigue [facility]* Diagnosis Pre-operative examination- Primary Preoperative examination, unspecified JOSE on CPAP Obstructive sleep apnea (adult) (pediatric) Obstructive lung disease (HCC) Chronic airway obstruction, not elsewhere classified Primary hypertension Unspecified essential hypertension Hyperlipidemia, unspecified hyperlipidemia type Cardiac resynchronization therapy pacemaker ([employer]-P) in place Paroxysmal atrial fibrillation (HCC) Atrial [...] EST Associated Problem(s): Cardiac resynchronization therapy pacemaker ([employer]GER-P) in place Assessment: s/p 10/2021 ICD placement, [...] Assessment: c/w CPAP [facility] Diagnosis Pre-operative examination- Primary Preoperative examination, unspecified JOSE on CPAP Obstructive sleep apnea (adult) (pediatric) Obstructive lung disease (HCC) Chronic airway obstruction, not elsewhere classified Primary hypertension Unspecified essential hypertension Hyperlipidemia, unspecified hyperlipidemia type Cardiac resynchronization therapy pacemaker ([employer] MANAGER-P) in place Paroxysmal atrial fibrillation (HCC) Atrial [...] pulmonary heart diseases documented in this encounter [facility] note* Diagnosis Pre-operative examination- Primary Preoperative examination, unspecified JOSE on CPAP Obstructive sleep apnea (adult) (pediatric) Obstructive lung disease (HCC) Chronic airway obstruction, not elsewhere classified Primary hypertension Unspecified essential hypertension Hyperlipidemia, unspecified hyperlipidemia type Cardiac resynchronization therapy pacemaker ([employer] MANAGER-P) in place Paroxysmal atrial fibrillation (HCC) Atrial [...] without bleeding- Primary documented in this encounter [facility] note* Diagnosis Pre-operative examination- Primary Preoperative examination, unspecified JOSE on CPAP Obstructive sleep apnea (adult) (pediatric) Obstructive lung disease (HCC) Chronic airway obstruction, not elsewhere classified Primary hypertension Unspecified essential hypertension Hyperlipidemia, unspecified hyperlipidemia type Cardiac resynchronization therapy pacemaker ([employer] MANAGER-P) in place Paroxysmal atrial fibrillation (HCC) Atrial [...] malaise and fatigue [facility]* Diagnosis Pre-operative examination- Primary Preoperative examination, unspecified JOSE on CPAP Obstructive sleep apnea (adult) (pediatric) Obstructive lung disease (HCC) Chronic airway obstruction, not elsewhere classified Primary hypertension Unspecified essential hypertension Hyperlipidemia, unspecified hyperlipidemia type Cardiac resynchronization therapy pacemaker ([employer]ORY MANAGER-P) in place Paroxysmal atrial fibrillation (HCC) Atrial [...] Abnormality of gait [facility] Diagnosis Pre-operative examination- Primary Preoperative examination, unspecified JOSE on CPAP Obstructive sleep apnea (adult) (pediatric) Obstructive lung disease (HCC) Chronic airway obstruction, not elsewhere classified Primary hypertension Unspecified essential hypertension Hyperlipidemia, unspecified hyperlipidemia type Cardiac resynchronization therapy pacemaker ([employer]ORY MANAGER-P) in place Paroxysmal atrial fibrillation (HCC) Atrial [...] and depressed mood [facility]* Diagnosis Pre-operative examination- Primary Preoperative examination, unspecified JOSE on CPAP Obstructive sleep apnea (adult) (pediatric) Obstructive lung disease (HCC) Chronic airway obstruction, not elsewhere classified Primary hypertension Unspecified essential hypertension Hyperlipidemia, unspecified hyperlipidemia type Cardiac resynchronization therapy pacemaker ([employer]ORY MANAGER-P) in place Paroxysmal atrial fibrillation (HCC) Atrial [...] legs syndrome (RLS) documented in this encounter [facility] note* Diagnosis Pre-operative examination- Primary Preoperative examination, unspecified JSOE on CPAP Obstructive sleep apnea (adult) (pediatric) Obstructive lung disease (HCC) Chronic airway obstruction, not elsewhere classified Primary hypertension Unspecified essential hypertension Hyperlipidemia, unspecified hyperlipidemia type Cardiac resynchronization therapy pacemaker ([employer]ORY MANAGER-P) in place Paroxysmal atrial fibrillation (HCC) Atrial [...] Anxiety state, unspecified documented in this encounter [facility] note* Diagnosis Pre-operative examination- Primary Preoperative examination, unspecified JOSE on CPAP Obstructive sleep apnea (adult) (pediatric) Obstructive lung disease (HCC) Chronic airway obstruction, not elsewhere classified Primary hypertension Unspecified essential hypertension Hyperlipidemia, unspecified hyperlipidemia type Cardiac resynchronization therapy pacemaker ([employer] MANAGER-P) in place Paroxysmal atrial fibrillation (HCC) Atrial [...] failure type (HCC) documented in this encounter [facility] note* Diagnosis Pre-operative examination- Primary Preoperative examination, unspecified JOSE on CPAP Obstructive sleep apnea (adult) (pediatric) Obstructive lung disease (HCC) Chronic airway obstruction, not elsewhere classified Primary hypertension Unspecified essential hypertension Hyperlipidemia, unspecified hyperlipidemia type Cardiac resynchronization therapy pacemaker ([employer] MANAGER-P) in place Paroxysmal atrial fibrillation (HCC) Atrial [...] failure type (HCC) documented in this encounter [facility] note* Diagnosis Pre-operative examination- Primary Preoperative examination, unspecified JOSE on CPAP Obstructive sleep apnea (adult) (pediatric) Obstructive lung disease (HCC) Chronic airway obstruction, not elsewhere classified Primary hypertension Unspecified essential hypertension Hyperlipidemia, unspecified hyperlipidemia type Cardiac resynchronization therapy pacemaker ([employer]ORY MANAGER-P) in place Paroxysmal atrial fibrillation (HCC) Atrial [...] arthropathy, multiple sites documented in this encounter [facility] note* Diagnosis Pre-operative examination- Primary Preoperative examination, unspecified JOSE on CPAP Obstructive sleep apnea (adult) (pediatric) Obstructive lung disease (HCC) Chronic airway obstruction, not elsewhere classified Primary hypertension Unspecified essential hypertension Hyperlipidemia, unspecified hyperlipidemia type Cardiac resynchronization therapy pacemaker ([employer]ORY MANAGER-P) in place Paroxysmal atrial fibrillation (HCC) Atrial [...] pulmonary heart diseases [facility]* Diagnosis Pre-operative examination- Primary Preoperative examination, unspecified JOSE on CPAP Obstructive sleep apnea (adult) (pediatric) Obstructive lung disease (HCC) Chronic airway obstruction, not elsewhere classified Primary hypertension Unspecified essential hypertension Hyperlipidemia, unspecified hyperlipidemia type Cardiac resynchronization therapy pacemaker ([employer]EARCH [employer]ORATORY MANAGER-P) in place Paroxysmal atrial fibrillation (HCC) Atrial [...] Chronic respiratory failure [facility]* Diagnosis Pre-operative examination- Primary Preoperative examination, unspecified JOSE on CPAP Obstructive sleep apnea (adult) (pediatric) Obstructive lung disease (HCC) Chronic airway obstruction, not elsewhere classified Primary hypertension Unspecified essential hypertension Hyperlipidemia, unspecified hyperlipidemia type Cardiac resynchronization therapy pacemaker ([employer] MANAGER-P) in place Paroxysmal atrial fibrillation (HCC) Atrial [...] Chronic respiratory failure [facility] Diagnosis Pre-operative examination- Primary Preoperative examination, unspecified JOSE on CPAP Obstructive sleep apnea (adult) (pediatric) Obstructive lung disease (HCC) Chronic airway obstruction, not elsewhere classified Primary hypertension Unspecified essential hypertension Hyperlipidemia, unspecified hyperlipidemia type Cardiac resynchronization therapy pacemaker ([employer]ORY MANAGER-P) in place Paroxysmal atrial fibrillation (HCC) Atrial [...] arthropathy, multiple sites [facility] Diagnosis Pre-operative examination- Primary Preoperative examination, unspecified JOSE on CPAP Obstructive sleep apnea (adult) (pediatric) Obstructive lung disease (HCC) Chronic airway obstruction, not elsewhere classified Primary hypertension Unspecified essential hypertension Hyperlipidemia, unspecified hyperlipidemia type Cardiac resynchronization therapy pacemaker ([employer]ORATORY MANAGER-P) in place Paroxysmal atrial fibrillation (HCC) Atrial [...] Abnormality of gait [facility]* Diagnosis Pre-operative examination- Primary Preoperative examination, unspecified JOSE on CPAP Obstructive sleep apnea (adult) (pediatric) Obstructive lung disease (HCC) Chronic airway obstruction, not elsewhere classified Primary hypertension Unspecified essential hypertension Hyperlipidemia, unspecified hyperlipidemia type Cardiac resynchronization therapy pacemaker ([employer]EARCH [employer]ORATORY MANAGER-P) in place Paroxysmal atrial fibrillation (HCC) Atrial [...] Abnormality of gait [facility] Diagnosis Pre-operative examination- Primary Preoperative examination, unspecified JOSE on CPAP Obstructive sleep apnea (adult) (pediatric) Obstructive lung disease (HCC) Chronic airway obstruction, not elsewhere classified Primary hypertension Unspecified essential hypertension Hyperlipidemia, unspecified hyperlipidemia type Cardiac resynchronization therapy pacemaker ([employer]EARCH [employer]ORATORY MANAGER-P) in place Paroxysmal atrial fibrillation (HCC) Atrial [...] Abnormality of gait documented in this encounter [facility] note* Diagnosis Pre-operative examination- Primary Preoperative examination, unspecified JOSE on CPAP Obstructive sleep apnea (adult) (pediatric) Obstructive lung disease (HCC) Chronic airway obstruction, not elsewhere classified Primary hypertension Unspecified essential hypertension Hyperlipidemia, unspecified hyperlipidemia type Cardiac resynchronization therapy pacemaker ([employer]EARCH LABORATORY MANAGER-P) in place Paroxysmal atrial fibrillation (HCC) Atrial [...] Abnormality of gait documented in this encounter [facility] noteNo assessment information availableHassler Health Farm Work Phone: Evaluation note* Diagnosis Onset Date Resolution Status Admit Date WELCH (dyspnea on exertion) acute November 02, 2024 9:16am 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, 2024 9:16am Pulmonary hypertension acute Ju 2024 9:16am Right carotid bruit acute November 02, 2024 9:16am Essential (primary) hypertension chronic November 02, 2024 9:16am History of permanent cardiac pacemaker placement June 09, 2021 chronic J silvia 2024 9:16am Paroxysmal atrial fibrillation chronic November 02, 2024 9:16am [facility] Work Phone: Evaluation note* Diagnosis Pre-operative examination- Primary Preoperative examination, unspecified JOSE on CPAP Obstructive sleep apnea (adult) (pediatric) Obstructive lung disease (HCC) Chronic airway obstruction, not elsewhere classified Primary hypertension Unspecified essential hypertension Hyperlipidemia, unspecified hyperlipidemia type Cardiac resynchronization therapy pacemaker (RESEARCH LABORATORY MANAGER-P) in place Paroxysmal atrial fibrillation (HCC) Atrial [...] Anxiety state, unspecified documented in this encounter [facility] note* Diagnosis Pre-operative examination- Primary Preoperative examination, unspecified JOSE on CPAP Obstructive sleep apnea (adult) (pediatric) Obstructive lung disease (HCC) Chronic airway obstruction, not elsewhere classified Primary hypertension Unspecified essential hypertension Hyperlipidemia, unspecified hyperlipidemia type Cardiac resynchronization therapy pacemaker (RESEARCH LABORATORY MANAGER-P) in place Paroxysmal atrial fibrillation (HCC) Atrial [...] unspecified hyperlipidemia type documented in this encounter [facility] note* Diagnosis Pre-operative examination- Primary Preoperative examination, unspecified JOSE on CPAP Obstructive sleep apnea (adult) (pediatric) Obstructive lung disease (HCC) Chronic airway obstruction, not elsewhere classified Primary hypertension Unspecified essential hypertension Hyperlipidemia, unspecified hyperlipidemia type Cardiac resynchronization therapy pacemaker (RESEARCH LABORATORY MANAGER-P) in place Paroxysmal atrial fibrillation (HCC) Atrial [...] Gastroesophageal reflux disease, unspecified whether esophagitis present Positive occult stool blood test- Primary Nonspecific abnormal finding in stool contents Anemia, unspecified type documented in this encounter [facility] Discharge instructionsAdditional Instructions DISCHARGE INSTRUCTIONS PLEASE READ [...] schedule an appointment for your tremors (ph [phone]) -Please call your primary care provider's office upon discharge to schedule a hospital follow up within 1 week. -For any concerning signs or symptoms please call 911 or proceed [facility] the [facility] Work Phone: Hospital Discharge instructionsAdditional Instructions 1. I think the chronic fatigue and lack of motivation were due to not wearing CPAP and an improperly fitting mask rather than due to depression. The high dose of Paxil, 40 mg daily, caused the tremors and difficulty walking. Deconditioning also contributed to trouble walking. As we age if you do not keep moving/walking/exercising you get stiff and sore and then you do not want to move and you sit. Then you lose muscle strength and pretty soon you can't walk. A regular exercise program is critical in maintaining function and continuing to live independently as we age. It helps to have a friend to exercise with because you are more likely to show up because someone else is depending on you to show up and exercise. 2. Your sodium is low. 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 ADH is a hormone produced by the pituitary and it causes the absorption of excess water in the kidney. The excess water dilutes out the sodium. The problem really is not that you do not have enough sodium it is that you have too much free water in the body diluting the sodium out. I suspect the SIADH is related to Paxil......Paxil is an SSRI (serotonin reuptake inhibitor) and all medications in this class can cause SIADH. You are taking a SSRI called sertraline (also called Zoloft). We switched to Zoloft because it does not cause the tremors we see with Paxil. The Sertraline is going to be tapered off over the next month. You can not suddenly stop an SSRI after you have been taking it halfway because you will have withdrawal. there are many other antidepressants if you need one BUT, it you are wearing the CPAP as directed with a good fitting mask you may not need and antidepressant. My hope is that if you are off an SSRI your sodium with normalize and you can get off the salt tabs. For now we need to continue the salt tabs and the fluid restriction. Do not drink more than 1,500 cc's a day of fluid. This is equivalent to 50 ounces. 3. You have gained strength while on rehab and you are doing well ambulating with the walker. I think you will do great at home. You are also much more alert than you were at admission to rehab and you have no tremors. Good for you! 4. Your BP was not well controlled at admission to rehab and we had to change the dosages. You were taking Hydralazine 50 mg 2-3 times a day and you will now be taking 75 mg 3 times a day. The 50 mg tabs are NOT scored so they are very difficult to break in half. I gave you prescriptions for 50 mg tabs and 25 mg tabs. You will take one 50 mg tab and one 25 mg tab 3 times a day for a total of 75 mg 3 times a day. 5. You are no longer going to be taking Prednisone. You are also off Ativan and doing well. Ativan is a drug that can be addictive. As we get older this medication is associated with confusion, drowsiness and dysequilibrium leading to increased falls. If you are feeling anxious or depressed definitely talk to Karen about this. There are many relaxation techniques that can be utilized to help control anxiety.........breathing exercises and yoga are 2 of these techniques. 6. We have NOT had you on Lasix or Spironolactone since you arrived on rehab. You do not have any significant swelling. The compression wraps on the legs and elevation of your legs when sitting in a chair are controlling the swelling without diuretics. Getting rid of the Prednisone also helps decrease swelling.........Prednisone cause fluid retention. It is always best to sleep in a bed at night because the legs are more elevated above the level of the heart and usually the swelling (if there is any) is gone in the AM. 7. You are anemic and this is new for you. You had blood in the stool when we checked it. Both Meloxicam and Prednisone can cause ulcers in the stomach. There are many reasons why people can have blood in the stool. You nade to follow up with a GI (gastrointestinal) doctor to have a look in the stomach and intestine if the anemia persists. 8. It has been a pleasure getting to know you Michael. I am very happy with the progress you have made on rehab. If you have any questions after you leave rehab please do not hesitate to call me!. OFFICE: [phone] CELL: [phone] NURSES STATION ON REHAB: [phone] Date of Discharge: 12/14/24[facility] Work Phone: Reason for referral (narrative)* Outpatient Procedure (Routine) - Authorized Specialty Diagnoses / Procedures Referred By Colton bond Referred To [facility] Diagnoses Gastroesophageal reflux disease with esophagitis without hemorrhage Procedures EGD DIAGNOSTIC ESOPHAGOGASTRODUODENOSC OPY TRANSORAL DIAGNOSTIC Raymundo De León MD [address] [facility] [place] [address] [address] Referral ID Status Reason Start Date Expiration Date Visits Requested Visits Authorized [id number] Authorized Auto-Generat ed Referral 12/18/2021 12/18/2022 1 1 [facility] for referral (narrative)* Outpatient Procedure (Routine) - Closed Specialty Diagnoses / Procedures [facility] Diagnoses Gastroesophageal reflux disease with esophagitis without hemorrhage Procedures EGD DIAGNOSTIC ESOPHAGOGASTRODUODENOSC OPY TRANSORAL DIAGNOSTIC Raymundo De León MD [address] [facility] [place] [address] [address] Referral ID Status Reason Start Date Expiration Date V isits Requested Visits Authorized [id number] Closed Auto-Generate d Referral 12/18/2021 12/18/2022 1 1 [facility] for referral (narrative)* Outpatient Procedure (Routine) - Authorized Specialty Diagnoses / Procedures Referred By Contac t Referred To Contact [facility] Diagnoses SOB (shortness of breath) on exertion Procedures ECHO ECHO TTHRC R-T 2D W/WOM-MODE COMPL SPEC&COLR D Key Portillo APRN.BRIDGE BUILDER [address] [place] [address] [facility] [address] [place] [address] Referral ID Status Reason Start Date Expiration Date Visits Requested Visits Authorized [id number] Authorized Auto-Generat ed Referral 06/04/2022 06/04/2023 1 1 * Outpatient Procedure (Routine) - Closed Specialty Diagnoses / Procedures Referred By Contac t Referred [facility] Diagnoses SOB (shortness of breath) on exertion Procedures ECG COMPLETE ECG ROUTINE ECG W/LEAST 12 LDS W/I&R Kye Portillo APRN.BRIDGE BUILDER [address] [place] [address] [facility] [address] [place] [id number] Referral ID Status Reason Start Date Expiration Date V isits Requested Visits Authorized [id number] Closed Auto-Generate d Referral 06/04/2022 06/04/2023 1 1 [facility] for referral (narrative)* Outpatient Procedure (Routine) - Authorized Specialty Diagnoses / Procedures Referred By Marleneac t Referred To [facility] Diagnoses WELCH (dyspnea on exertion) Procedures SPIROMETRY - BASELINE AND POST DILATOR BRNCDILAT RSPSE SPMTRY PRE&POST-BRNCDILAT ADMN Michael Puga DO [address] [place] [address] [facility] [address] [place] [id number] Referral ID Status Reason Start Date Expiration Date Visits Requested Visits Authorized [id number] Authorized Auto-Generat ed Referral 12/22/2022 01/21/2024 1 1 [facility] for referral (narrative)* Outpatient Procedure (Routine) - Authorized Specialty Diagnoses / Procedures Referred By Contac t Referred To Contact [facility] Diagnoses Epigastric abdominal pain Pulmonary hypertension (HCC) Procedures EGD DIAGNOSTIC ESOPHAGOGASTRODUODENOSCO PY TRANSORAL DIAGNOSTIC Sharon Jarrett APRN.CNP [address] [place] [address] [facility] [address] [place] [id number] Referral ID Status Reason Start Date Expiration Date Visits Requested Visits Authorized [id number] Authorized Auto-Generat ed Referral 03/13/2025 1 1 [facility] for referral (narrative)* Outpatient Procedure (Routine) - Closed Specialty Diagnoses / Procedures Referred By Marleneac t Referred To [facility] Diagnoses Epigastric abdominal pain Pulmonary hypertension (HCC) Procedures EGD DIAGNOSTIC ESOPHAGOGASTRODUODENOSCO PY TRANSORAL DIAGNOSTIC Sharon Jarrett APRN.BRIDGE BUILDER [address] [place] [address] [address] Referral ID Status Reason Start Date Expiration Date V isits Requested Visits Authorized [id number] Closed Auto-Generate d Referral 03/13/2024 03/13/2025 1 1 [facility] for referral (narrative)No reason for referral information availableWSelect [facility] Work Phone: Reason for visit Narrative* Outpatient Procedure (Routine) - Closed Specialty Diagnoses / Procedures Referred By Contac t Referred To [facility] Diagnoses Gastroesophageal reflux disease with esophagitis without hemorrhage Procedures EGD DIAGNOSTIC ESOPHAGOGASTRODUODENOSC OPY TRANSORAL DIAGNOSTIC Raymundo De León MD [address] [place] [address] [address] Referral ID Status Reason Start Date Expiration Date V isits Requested Visits Authorized [id number] Closed Auto-Generate d Referral 12/18/2021 12/18/2022 1 1 [facility] for visit Narrative* Outpatient Procedure (Routine) - Closed Specialty Diagnoses / Procedures Referred By Contac t Referred To [facility] Diagnoses Epigastric abdominal pain Pulmonary hypertension (HCC) Procedures EGD DIAGNOSTIC ESOPHAGOGASTRODUODENOSCO PY TRANSORAL DIAGNOSTIC Sharon Jarrett APRN.BRIDGE BUILDER [address] [place] [address] [address] Referral ID Status Reason Start Date Expiration Date V isits Requested Visits Authorized [id number] Closed Auto-Generate d Referral 03/13/2024 03/13/2025 1 1 [facility] Summary Purpose Family History No Family History Records Found Relationship Condition Age at Onset Recorded Date/T burt grandfather Myocardial infarction Unknown Sudden cardiac Unknown father Myocardial infarction Unknown Coronary artery disease Unknown Congestive heart failure Unknown mother Myocardial infarction Unknown Atrial fibrillation Unknown brother Atrial fibrillation Unknown brother Malignant neoplasm Unknown son Diabetes mellitus Unknown son Hypertension Unknown Advance Directives No Advanced Directives Records FoundDocuments on File Type Date Recorded Patient Casing Mixer Expl anation Advance Directive(s) 10/17/2020 9:40 AM Advance Directive(s) 06/29/2017 10:43 AM Advance Directive(s) 06/29/2017 6:40 AM Advance Directive Response Recorded Date/ Time Advance Directives Yes June 09, 2021 11:35am Living Will Yes June 09 11:35am Power of Wood Lathe Operator Yes June 09, 2021 11:35am Documents on File Type Date Recorded Patient Casing Mixer Expl anation Advance Directive(s) 06/29/2017 6:40 AM Documents on File Type Date Recorded Patient Casing Mixer Expl anation Advance Directive(s) 06/29/2017 6:40 AM Advance Directive Response Recorded Date/ Time Living Will Yes September 28, 2023 1 2:26am Power of Wood Lathe Operator Yes September 28, 2023 12:26am Living Will Yes April 30 11:40am Power of Wood Lathe Operator Yes April 30, 2024 11:40am Name of Medical Power of Wood Lathe Operator Yumiko Elena, daughter April 30, 2024 11:40am Advance Directives Yes June 09, 2021 11:35am Advance Directive Response Recorded Date/ Time Living Will Yes September 28, 2023 1 2:26am Do you have a Healthcare Pow er of Wood Lathe Operator? Yes September 28, 2023 12:26am Living Will Yes April 30 11:40am Do you have a Healthcare Pow er of Wood Lathe Operator? Yes April 30, 2024 11:40am Name of Medical Power of Wood Lathe Operator Yumiko Elena, daughter April 30, 2024 11:40am Advance Directives Yes June 09, 2021 11:35am Advance Directive Response Recorded Date/ Time Advance Directives Yes June 09, 2021 11:35am Advance Directive Response Recorded Date/ Time Do you have a Healthcare Power of Wood Lathe Operator? Yes November 29, 2024 4:45pm Advance Directives Yes June 09, 2021 11:35am Advance Directive Response Recorded Date/ Time Do you have a Healthcare Power of Wood Lathe Operator? Yes November 29, 2024 11:07pm Advance Directives Yes June 09, 2021 11:35am Advance Directive Response Recorded Date/ Time Do you have a Healthcare Pow er of Wood Lathe Operator? Yes November 29, 2024 11:07pm Do you have a Healthcare Pow er of Wood Lathe Operator? 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 November 29, 2024 9:39pm HYPERTENSIVE EMERGENCY AND RUE WITH RLE TREMORS. November 30, 2024 4:26pm HYPERTENSIVE EMERGENCY AND RUE WITH RLE TREMORS. December 01, 2024 2:51pm HYPERTENSIVE EMERGENCY AND RUE WITH RLE TREMORS. December 02, 2024 4:14pm HYPERTENSIVE EMERGENCY AND RUE WITH RLE TREMORS. December 03, 2024 2:55pm DEBILITY December 03, 2024 4:0 9pm DEBILITY December 04, 2024 11: 59am DEBILITY December 05, 2024 7:3 9am DEBILITY December 06, 2024 10: 46am DEBILITY December 07, 2024 11: 53am DEBILITY December 11, 2024 8: 56am DEBILITY December 12, 2024 10 :50am Reason for Visit Admit Date MCC current use of amiodarone November 02, 2024 9:16am Essential (primary) hypertension October 9:16am History of permanent cardiac pacemaker p lacement November 02, 2024 9:16am Paroxysmal atrial fibrillation November 02, 2024 9:16am Pulmonary hypertension November 02, 2024 9: 16am WELCH (dyspnea on exertion) November 02, 2024 9:16am Morbid obesity with BMI of 40.0-44.9, ad ult November 29, 2024 9:39pm Tremor November 29, 2024 9:39 pm Paroxysmal atrial fibrillation October 9:39pm Hypertensive urgency November 29, 2024 9:3 9pm Hypertensive emergency without congestiv e heart failure November 29, 2024 9:39pm TIA (transient ischemic attack) October 9:39pm Debility December 03, 2024 4:0 9pm Disequilibrium December 03, 2024 4:0 9pm Generalized weakness December 03, 2024 4: 09pm Heme positive stool December 03, 2024 4:0 9pm Hyponatremia December 03, 2024 4:0 9pm 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 Augu 2024 4:09pm Morbid obesity with BMI of 40.0-44.9, ad ult December 03, 2024 4:09pm Normochromic normocytic anemia December 4:09pm Tremor December 03, 2024 4:0 9pm Essential (primary) hypertension December 03, 2024 4:09pm History of permanent cardiac pacemaker p lacement December 03, 2024 4:09pm Hyperlipidemia December 03, 2024 4:0 9pm Hypothyroidism December 03, 2024 4:0 9pm Left atrial enlargement December 03, 2024 4:09pm Moderate left ventricular hypertrophy Au 2024 4:09pm Paroxysmal atrial fibrillation December 4:09pm Pulmonary hypertension December 03, 2024 4:09pm Tricuspid regurgitation December 03, 2024 4:09pm TIA (transient ischemic attack) December 032024 4:09pm Chief Complaint Admit Date Pacer Check Remote October 16, 2024 2:00 am Pacer Check Remote October 23, 2024 2:00 am Pacer Check Remote October 27, 2024 2:22 am See clinical notes re: SOB, appt moved u p November 02, 2024 9:16am Pacer Check Remote November 26, 2024 4:36 pm HYPERTENSIVE EMERGENCY AND RUE WITH RLE TREMORS. November 29, 2024 9:39pm HYPERTENSIVE EMERGENCY AND RUE WITH RLE TREMORS. November 30, 2024 4:26pm HYPERTENSIVE EMERGENCY AND RUE WITH RLE TREMORS. December 01, 2024 2:51pm HYPERTENSIVE EMERGENCY AND RUE WITH RLE TREMORS. December 02, 2024 4:14pm HYPERTENSIVE EMERGENCY AND RUE WITH RLE TREMORS. 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 November 02, 2024 9:16am Paroxysmal atrial fibrillation November 02, 2024 9:16am Pulmonary hypertension November 02, 2024 9: 16am WELCH (dyspnea on exertion) November 02, 2024 9:16am Morbid obesity with BMI of 40.0-44.9, ad ult November 29, 2024 9:39pm Paroxysmal atrial fibrillation October 9:39pm Hypertensive urgency November 29, 2024 9:3 9pm Tremor November 29, 2024 9:39 pm Hypertensive emergency without congestiv e heart failure November 29, 2024 9:39pm TIA (transient ischemic attack) October 9:39pm Debility December 03, 2024 4:0 9pm Disequilibrium December 03, 2024 4:0 9pm Generalized weakness December 03, 2024 4: 09pm Heme positive stool December 03, 2024 4:0 9pm Hyponatremia December 03, 2024 4:0 9pm Normochromic normocytic anemia December 4:09pm Essential (primary) hypertension December 03, 2024 4:09pm History of permanent cardiac pacemaker p lacement December 03, 2024 4:09pm Hyperlipidemia December 03, 2024 4:0 9pm Hypothyroidism December 03, 2024 4:0 9pm Left atrial enlargement O'Brien 3rd, 2025 4:09pm [facility] current use of amiodarone Augu st 2024 4:09pm Moderate left ventricular hypertrophy Au sulma 2024 4:09pm Morbid obesity with BMI of 40.0-44.9, ad ult December 03, 2024 4:09pm Paroxysmal atrial fibrillation December 4:09pm Pulmonary hypertension December 03, 2024 4:09pm Tricuspid regurgitation December 03, 2024 4:09pm Tremor December 03, 2024 4:0 9pm TIA (transient ischemic attack) December 032024 4:09pm Medications Administered Section Inactive Administered Medications - up to 3 most recent administrations Medication Order MAR Action Action Date Dose Rate Site benzocaine 20% 1 [place] (TOPEX) 1 [place], TOPICAL, DIRECTED, Starting on Kaye 01/08/22 at [...] pain Procedures CONSULT TO GENERAL SURGERY OFFICE/OUTPATIENT [facility] 60 MINUTES Michael Puga, DO [address] [place] [address] Referral ID Status Reason Start Date Expiration Date Visits Requested Visits Authorized [id number] Authorized PCP Requested Referral 4 03/01/2025 1 1 Additional Source Comments <item><item> Privacy Markings (unrecogniz ed section and content) Section Author: Macarena Adamson PROHIBITION ON REDISCLOSURE OF CONFIDENTIAL INFORMATION This notice accompanies a disclosure of information concerning a client made to you with the consent of such client. Section Author: Macarena Adamson PROHIBITION ON REDISCLOSURE OF CONFIDENTIAL INFORMATION This notice accompanies a disclosure of information concerning a client made to you with the consent of such client. INFORMATION SOURCE (unrecogn ized section and content) DATE CREATED AUTHOR 12/28/2020 Located within [facility] DATE CREATED AUTHOR AUTHOR'S ORGANIZ ATION 04/06/[address] [facility] DATE CREATED AUTHOR AUTHOR'S ORGANIZ ATION 10/28/2024 [facility] DATE CREATED AUTHOR AUTHOR'S ORGANIZ ATION 12/22/2024 [facility] DATE CREATED AUTHOR AUTHOR'S ORGANIZ ATION 12/22/2024 [facility] Source Comments (unrecognize d section and content) In the event this informatio n is protected by the Federal Confidentiality of Alcohol and Drug Abuse Patient Records regulations: The Federal rules restrict any use of the information to criminally investigate or prosecute any alcohol or drug abuse patient.[facility] the event this information is protected by the Federal Confidentiality of Alcohol and Drug Abuse Patient Records regulations: The Federal rules restrict any use of the information to criminally investigate or prosecute any alcohol or drug abuse patient.[facility] the event this information is protected by the Federal Confidentiality of Alcohol and Drug Abuse Patient Records regulations: The Federal rules restrict any use of the information to criminally investigate or prosecute any alcohol or drug abuse patient.[facility] the event this information is protected by the Federal Confidentiality of Alcohol and Drug Abuse Patient Records regulations: The Federal rules restrict any use of the information to criminally investigate or prosecute any alcohol or drug abuse patient.[facility] [place]In the event this information is protected by the Federal Confidentiality of Alcohol and Drug Abuse Patient Records regulations: The Federal rules restrict any use of the information to criminally investigate or prosecute any alcohol or drug abuse patient.[facility] [place]In the event this information is protected by the Federal Confidentiality of Alcohol and Drug Abuse Patient Records regulations: The Federal rules restrict any use of the information to criminally investigate or prosecute any alcohol or drug abuse patient.[facility] [place]In the event this information is protected by the Federal Confidentiality of Alcohol and Drug Abuse Patient Records regulations: The Federal rules restrict any use of the information to criminally investigate or prosecute any alcohol or drug abuse patient.[facility] [place]In the event this information is protected by the Federal Confidentiality of Alcohol and Drug Abuse Patient Records regulations: The Federal rules restrict any use of the information to criminally investigate or prosecute any alcohol or drug abuse patient.[facility] ColumbusIn the event this information is protected by the Federal Confidentiality of Alcohol and Drug Abuse Patient Records regulations: The Federal rules restrict any use of the information to criminally investigate or prosecute any alcohol or drug abuse patient.[facility] ColumbusIn the event this information is protected by the Federal Confidentiality of Alcohol and Drug Abuse Patient Records regulations: The Federal rules restrict any use of the information to criminally investigate or prosecute any alcohol or drug abuse patient.[facility] [place]In the event this information is protected by the Federal Confidentiality of Alcohol and Drug Abuse Patient Records regulations: The Federal rules restrict any use of the information to criminally investigate or prosecute any alcohol or drug abuse patient.[facility] [place]In the event this information is protected by the Federal Confidentiality of Alcohol and Drug Abuse Patient Records regulations: The Federal rules restrict any use of the information to criminally investigate or prosecute any alcohol or drug abuse patient.[facility] ColumbusIn the event this information is protected by the Federal Confidentiality of Alcohol and Drug Abuse Patient Records regulations: The Federal rules restrict any use of the information to criminally investigate or prosecute any alcohol or drug abuse patient.[facility] ColumbusIn the event this information is protected by the Federal Confidentiality of Alcohol and Drug Abuse Patient Records regulations: The Federal rules restrict any use of the information to criminally investigate or prosecute any alcohol or drug abuse patient.[facility] [place]In the event this information is protected by the Federal Confidentiality of Alcohol and Drug Abuse Patient Records regulations: The Federal rules restrict any use of the information to criminally investigate or prosecute any alcohol or drug abuse patient.[facility] [place]In the event this information is protected by the Federal Confidentiality of Alcohol and Drug Abuse Patient Records regulations: The Federal rules restrict any use of the information to criminally investigate or prosecute any alcohol or drug abuse patient.[facility] [place]In the event this information is protected by the Federal Confidentiality of Alcohol and Drug Abuse Patient Records regulations: The Federal rules restrict any use of the information to criminally investigate or prosecute any alcohol or drug abuse patient.[facility] [place]In the event this information is protected by the Federal Confidentiality of Alcohol and Drug Abuse Patient Records regulations: The Federal rules restrict any use of the information to criminally investigate or prosecute any alcohol or drug abuse patient.[facility] [place]In the event this information is protected by the Federal Confidentiality of Alcohol and Drug Abuse Patient Records regulations: The Federal rules restrict any use of the information to criminally investigate or prosecute any alcohol or drug abuse patient.[facility] [place]In the event this information is protected by the Federal Confidentiality of Alcohol and Drug Abuse Patient Records regulations: The Federal rules restrict any use of the information to criminally investigate or prosecute any alcohol or drug abuse patient.[facility] [place]In the event this information is protected by the Federal Confidentiality of Alcohol and Drug Abuse Patient Records regulations: The Federal rules restrict any use of the information to criminally investigate or prosecute any alcohol or drug abuse patient.[facility] [place]In the event this information is protected by the Federal Confidentiality of Alcohol and Drug Abuse Patient Records regulations: The Federal rules restrict any use of the information to criminally investigate or prosecute any alcohol or drug abuse patient.[facility] [place]In the event this information is protected by the Federal Confidentiality of Alcohol and Drug Abuse Patient Records regulations: The Federal rules restrict any use of the information to criminally investigate or prosecute any alcohol or drug abuse patient.[facility] [place]In the event this information is protected by the Federal Confidentiality of Alcohol and Drug Abuse Patient Records regulations: The Federal rules restrict any use of the information to criminally investigate or prosecute any alcohol or drug abuse patient.[facility] [place]In the event this information is protected by the Federal Confidentiality of Alcohol and Drug Abuse Patient Records regulations: The Federal rules restrict any use of the information to criminally investigate or prosecute any alcohol or drug abuse patient.[facility] [place]In the event this information is protected by the Federal Confidentiality of Alcohol and Drug Abuse Patient Records regulations: The Federal rules restrict any use of the information to criminally investigate or prosecute any alcohol or drug abuse patient.[facility] [place]In the event this information is protected by the Federal Confidentiality of Alcohol and Drug Abuse Patient Records regulations: The Federal rules restrict any use of the information to criminally investigate or prosecute any alcohol or drug abuse patient.[facility] [place]In the event this information is protected by the Federal Confidentiality of Alcohol and Drug Abuse Patient Records regulations: The Federal rules restrict any use of the information to criminally investigate or prosecute any alcohol or drug abuse patient.[facility] [place]In the event this information is protected by the Federal Confidentiality of Alcohol and Drug Abuse Patient Records regulations: The Federal rules restrict any use of the information to criminally investigate or prosecute any alcohol or drug abuse patient.[facility] [place]In the event this information is protected by the Federal Confidentiality of Alcohol and Drug Abuse Patient Records regulations: The Federal rules restrict any use of the information to criminally investigate or prosecute any alcohol or drug abuse patient.[facility] [place]In the event this information is protected by the Federal Confidentiality of Alcohol and Drug Abuse Patient Records regulations: The Federal rules restrict any use of the information to criminally investigate or prosecute any alcohol or drug abuse patient.[facility] [place]In the event this information is protected by the Federal Confidentiality of Alcohol and Drug Abuse Patient Records regulations: The Federal rules restrict any use of the information to criminally investigate or prosecute any alcohol or drug abuse patient.[facility] [place]In the event this information is protected by the Federal Confidentiality of Alcohol and Drug Abuse Patient Records regulations: The Federal rules restrict any use of the information to criminally investigate or prosecute any alcohol or drug abuse patient.[facility] [place]In the event this information is protected by the Federal Confidentiality of Alcohol and Drug Abuse Patient Records regulations: The Federal rules restrict any use of the information to criminally investigate or prosecute any alcohol or drug abuse patient.[facility] [place]In the event this information is protected by the Federal Confidentiality of Alcohol and Drug Abuse Patient Records regulations: The Federal rules restrict any use of the information to criminally investigate or prosecute any alcohol or drug abuse patient.[facility] [place]In the event this information is protected by the Federal Confidentiality of Alcohol and Drug Abuse Patient Records regulations: The Federal rules restrict any use of the information to criminally investigate or prosecute any alcohol or drug abuse patient.[facility] [place]In the event this information is protected by the Federal Confidentiality of Alcohol and Drug Abuse Patient Records regulations: The Federal rules restrict any use of the information to criminally investigate or prosecute any alcohol or drug abuse patient.[facility] [place]In the event this information is protected by the Federal Confidentiality of Alcohol and Drug Abuse Patient Records regulations: The Federal rules restrict any use of the information to criminally investigate or prosecute any alcohol or drug abuse patient.[facility] [place]In the event this information is protected by the Federal Confidentiality of Alcohol and Drug Abuse Patient Records regulations: The Federal rules restrict any use of the information to criminally investigate or prosecute any alcohol or drug abuse patient.[facility] [place]In the event this information is protected by the Federal Confidentiality of Alcohol and Drug Abuse Patient Records regulations: The Federal rules restrict any use of the information to criminally investigate or prosecute any alcohol or drug abuse patient.[facility] [place]In the event this information is protected by the Federal Confidentiality of Alcohol and Drug Abuse Patient Records regulations: The Federal rules restrict any use of the information to criminally investigate or prosecute any alcohol or drug abuse patient.[facility] [place]In the event this information is protected by the Federal Confidentiality of Alcohol and Drug Abuse Patient Records regulations: The Federal rules restrict any use of the information to criminally investigate or prosecute any alcohol or drug abuse patient.[facility] [place]In the event this information is protected by the Federal Confidentiality of Alcohol and Drug Abuse Patient Records regulations: The Federal rules restrict any use of the information to criminally investigate or prosecute any alcohol or drug abuse patient.[facility] [place]In the event this information is protected by the Federal Confidentiality of Alcohol and Drug Abuse Patient Records regulations: The Federal rules restrict any use of the information to criminally investigate or prosecute any alcohol or drug abuse patient.[facility] [place]In the event this information is protected by the Federal Confidentiality of Alcohol and Drug Abuse Patient Records regulations: The Federal rules restrict any use of the information to criminally investigate or prosecute any alcohol or drug abuse patient.[facility] [place]In the event this information is protected by the Federal Confidentiality of Alcohol and Drug Abuse Patient Records regulations: The Federal rules restrict any use of the information to criminally investigate or prosecute any alcohol or drug abuse patient.[facility] [place]In the event this information is protected by the Federal Confidentiality of Alcohol and Drug Abuse Patient Records regulations: The Federal rules restrict any use of the information to criminally investigate or prosecute any alcohol or drug abuse patient.[facility] [place]In the event this information is protected by the Federal Confidentiality of Alcohol and Drug Abuse Patient Records regulations: The Federal rules restrict any use of the information to criminally investigate or prosecute any alcohol or drug abuse patient.[facility] [place]In the event this information is protected by the Federal Confidentiality of Alcohol and Drug Abuse Patient Records regulations: The Federal rules restrict any use of the information to criminally investigate or prosecute any alcohol or drug abuse patient.[facility] [place]In the event this information is protected by the Federal Confidentiality of Alcohol and Drug Abuse Patient Records regulations: The Federal rules restrict any use of the information to criminally investigate or prosecute any alcohol or drug abuse patient.[facility] [place]In the event this information is protected by the Federal Confidentiality of Alcohol and Drug Abuse Patient Records regulations: The Federal rules restrict any use of the information to criminally investigate or prosecute any alcohol or drug abuse patient.[facility] [place]In the event this information is protected by the Federal Confidentiality of Alcohol and Drug Abuse Patient Records regulations: The Federal rules restrict any use of the information to criminally investigate or prosecute any alcohol or drug abuse patient.[facility] [place]In the event this information is protected by the Federal Confidentiality of Alcohol and Drug Abuse Patient Records regulations: The Federal rules restrict any use of the information to criminally investigate or prosecute any alcohol or drug abuse patient.[facility] [place]In the event this information is protected by the Federal Confidentiality of Alcohol and Drug Abuse Patient Records regulations: The Federal rules restrict any use of the information to criminally investigate or prosecute any alcohol or drug abuse patient.[facility] [place]In the event this information is protected by the Federal Confidentiality of Alcohol and Drug Abuse Patient Records regulations: The Federal rules restrict any use of the information to criminally investigate or prosecute any alcohol or drug abuse patient.[facility] [place]In the event this information is protected by the Federal Confidentiality of Alcohol and Drug Abuse Patient Records regulations: The Federal rules restrict any use of the information to criminally investigate or prosecute any alcohol or drug abuse patient.[facility] [place]In the event this information is protected by the Federal Confidentiality of Alcohol and Drug Abuse Patient Records regulations: The Federal rules restrict any use of the information to criminally investigate or prosecute any alcohol or drug abuse patient.[facility] [place]In the event this information is protected by the Federal Confidentiality of Alcohol and Drug Abuse Patient Records regulations: The Federal rules restrict any use of the information to criminally investigate or prosecute any alcohol or drug abuse patient.[facility] [place]In the event this information is protected by the Federal Confidentiality of Alcohol and Drug Abuse Patient Records regulations: The Federal rules restrict any use of the information to criminally investigate or prosecute any alcohol or drug abuse patient.[facility] [place]In the event this information is protected by the Federal Confidentiality of Alcohol and Drug Abuse Patient Records regulations: The Federal rules restrict any use of the information to criminally investigate or prosecute any alcohol or drug abuse patient.[facility] [place]In the event this information is protected by the Federal Confidentiality of Alcohol and Drug Abuse Patient Records regulations: The Federal rules restrict any use of the information to criminally investigate or prosecute any alcohol or drug abuse patient.[facility] [place]In the event this information is protected by the Federal Confidentiality of Alcohol and Drug Abuse Patient Records regulations: The Federal rules restrict any use of the information to criminally investigate or prosecute any alcohol or drug abuse patient.[facility] [place]In the event this information is protected by the Federal Confidentiality of Alcohol and Drug Abuse Patient Records regulations: The Federal rules restrict any use of the information to criminally investigate or prosecute any alcohol or drug abuse patient.[facility] [place]In the event this information is protected by the Federal Confidentiality of Alcohol and Drug Abuse Patient Records regulations: The Federal rules restrict any use of the information to criminally investigate or prosecute any alcohol or drug abuse patient.[facility] [place]In the event this information is protected by the Federal Confidentiality of Alcohol and Drug Abuse Patient Records regulations: The Federal rules restrict any use of the information to criminally investigate or prosecute any alcohol or drug abuse patient.[facility] [place]In the event this information is protected by the Federal Confidentiality of Alcohol and Drug Abuse Patient Records regulations: The Federal rules restrict any use of the information to criminally investigate or prosecute any alcohol or drug abuse patient.[facility] [place]In the event this information is protected by the Federal Confidentiality of Alcohol and Drug Abuse Patient Records regulations: The Federal rules restrict any use of the information to criminally investigate or prosecute any alcohol or drug abuse patient.[facility] [place]In the event this information is protected by the Federal Confidentiality of Alcohol and Drug Abuse Patient Records regulations: The Federal rules restrict any use of the information to criminally investigate or prosecute any alcohol or drug abuse patient.[facility] [place]In the event this information is protected by the Federal Confidentiality of Alcohol and Drug Abuse Patient Records regulations: The Federal rules restrict any use of the information to criminally investigate or prosecute any alcohol or drug abuse patient.[facility] [place]In the event this information is protected by the Federal Confidentiality of Alcohol and Drug Abuse Patient Records regulations: The Federal rules restrict any use of the information to criminally investigate or prosecute any alcohol or drug abuse patient.[facility] [place]In the event this information is protected by the Federal Confidentiality of Alcohol and Drug Abuse Patient Records regulations: The Federal rules restrict any use of the information to criminally investigate or prosecute any alcohol or drug abuse patient.[facility] [place]In the event this information is protected by the Federal Confidentiality of Alcohol and Drug Abuse Patient Records regulations: The Federal rules restrict any use of the information to criminally investigate or prosecute any alcohol or drug abuse patient.[facility] [place]In the event this information is protected by the Federal Confidentiality of Alcohol and Drug Abuse Patient Records regulations: The Federal rules restrict any use of the information to criminally investigate or prosecute any alcohol or drug abuse patient.[facility] [place]In the event this information is protected by the Federal Confidentiality of Alcohol and Drug Abuse Patient Records regulations: The Federal rules restrict any use of the information to criminally investigate or prosecute any alcohol or drug abuse patient.[facility] [place]In the event this information is protected by the Federal Confidentiality of Alcohol and Drug Abuse Patient Records regulations: The Federal rules restrict any use of the information to criminally investigate or prosecute any alcohol or drug abuse patient.[facility] [place]In the event this information is protected by the Federal Confidentiality of Alcohol and Drug Abuse Patient Records regulations: The Federal rules restrict any use of the information to criminally investigate or prosecute any alcohol or drug abuse patient.[facility] [place]In the event this information is protected by the Federal Confidentiality of Alcohol and Drug Abuse Patient Records regulations: The Federal rules restrict any use of the information to criminally investigate or prosecute any alcohol or drug abuse patient.[facility] [place]In the event this information is protected by the Federal Confidentiality of Alcohol and Drug Abuse Patient Records regulations: The Federal rules restrict any use of the information to criminally investigate or prosecute any alcohol or drug abuse patient.[facility] [place]In the event this information is protected by the Federal Confidentiality of Alcohol and Drug Abuse Patient Records regulations: The Federal rules restrict any use of the information to criminally investigate or prosecute any alcohol or drug abuse patient.[facility] [place]In the event this information is protected by the Federal Confidentiality of Alcohol and Drug Abuse Patient Records regulations: The Federal rules restrict any use of the information to criminally investigate or prosecute any alcohol or drug abuse patient.[facility] [place]In the event this information is protected by the Federal Confidentiality of Alcohol and Drug Abuse Patient Records regulations: The Federal rules restrict any use of the information to criminally investigate or prosecute any alcohol or drug abuse patient.[facility] ColumbusIn the event this information is protected by the Federal Confidentiality of Alcohol and Drug Abuse Patient Records regulations: The Federal rules restrict any use of the information to criminally investigate or prosecute any alcohol or drug abuse patient.[facility] ColumbusIn the event this information is protected by the Federal Confidentiality of Alcohol and Drug Abuse Patient Records regulations: The Federal rules restrict any use of the information to criminally investigate or prosecute any alcohol or drug abuse patient.[facility] ColumbusIn the event this information is protected by the Federal Confidentiality of Alcohol and Drug Abuse Patient Records regulations: The Federal rules restrict any use of the information to criminally investigate or prosecute any alcohol or drug abuse patient.[facility]In the event this information is protected by the Federal Confidentiality of Alcohol and Drug Abuse Patient Records regulations: The Federal rules restrict any use of the information to criminally investigate or prosecute any alcohol or drug abuse patient.[facility] ColumbusIn the event this information is protected by the Federal Confidentiality of Alcohol and Drug Abuse Patient Records regulations: The Federal rules restrict any use of the information to criminally investigate or prosecute any alcohol or drug abuse patient.[facility] ColumbusIn the event this information is protected by the Federal Confidentiality of Alcohol and Drug Abuse Patient Records regulations: The Federal rules restrict any use of the information to criminally investigate or prosecute any alcohol or drug abuse patient.[facility] ColumbusIn the event this information is protected by the Federal Confidentiality of Alcohol and Drug Abuse Patient Records regulations: The Federal rules restrict any use of the information to criminally investigate or prosecute any alcohol or drug abuse patient.[facility] ColumbusIn the event this information is protected by the Federal Confidentiality of Alcohol and Drug Abuse Patient Records regulations: The Federal rules restrict any use of the information to criminally investigate or prosecute any alcohol or drug abuse patient.[facility] ColumbusIn the event this information is protected by the Federal Confidentiality of Alcohol and Drug Abuse Patient Records regulations: The Federal rules restrict any use of the information to criminally investigate or prosecute any alcohol or drug abuse patient.[facility] ColumbusIn the event this information is protected by the Federal Confidentiality of Alcohol and Drug Abuse Patient Records regulations: The Federal rules restrict any use of the information to criminally investigate or prosecute any alcohol or drug abuse patient.[facility] ColumbusIn the event this information is protected by the Federal Confidentiality of Alcohol and Drug Abuse Patient Records regulations: The Federal rules restrict any use of the information to criminally investigate or prosecute any alcohol or drug abuse patient.[facility] ColumbusIn the event this information is protected by the Federal Confidentiality of Alcohol and Drug Abuse Patient Records regulations: The Federal rules restrict any use of the information to criminally investigate or prosecute any alcohol or drug abuse patient.[facility] ColumbusIn the event this information is protected by the Federal Confidentiality of Alcohol and Drug Abuse Patient Records regulations: The Federal rules restrict any use of the information to criminally investigate or prosecute any alcohol or drug abuse patient.[facility] ColumbusIn the event this information is protected by the Federal Confidentiality of Alcohol and Drug Abuse Patient Records regulations: The Federal rules restrict any use of the information to criminally investigate or prosecute any alcohol or drug abuse patient.[facility] ColumbusIn the event this information is protected by the Federal Confidentiality of Alcohol and Drug Abuse Patient Records regulations: The Federal rules restrict any use of the information to criminally investigate or prosecute any alcohol or drug abuse patient.[facility] ColumbusIn the event this information is protected by the Federal Confidentiality of Alcohol and Drug Abuse Patient Records regulations: The Federal rules restrict any use of the information to criminally investigate or prosecute any alcohol or drug abuse patient.[facility] ColumbusIn the event this information is protected by the Federal Confidentiality of Alcohol and Drug Abuse Patient Records regulations: The Federal rules restrict any use of the information to criminally investigate or prosecute any alcohol or drug abuse patient.[facility] ColumbusIn the event this information is protected by the Federal Confidentiality of Alcohol and Drug Abuse Patient Records regulations: The Federal rules restrict any use of the information to criminally investigate or prosecute any alcohol or drug abuse patient.[facility] ColumbusIn the event this information is protected by the Federal Confidentiality of Alcohol and Drug Abuse Patient Records regulations: The Federal rules restrict any use of the information to criminally investigate or prosecute any alcohol or drug abuse patient.[facility] ColumbusIn the event this information is protected by the Federal Confidentiality of Alcohol and Drug Abuse Patient Records regulations: The Federal rules restrict any use of the information to criminally investigate or prosecute any alcohol or drug abuse patient.[facility] ColumbusIn the event this information is protected by the Federal Confidentiality of Alcohol and Drug Abuse Patient Records regulations: The Federal rules restrict any use of the information to criminally investigate or prosecute any alcohol or drug abuse patient.[facility] Reason for Visit (unrecogniz ed section and content) Reason Comments PT Eval Specialty Diagnoses / Procedures Referred By Contac t Referred To Contact Physical Therapy / PHYSICAL THERAPY Diagnoses CONSULT/WEAKNESS Procedures NEW RS PT ORTH Arlene Bruce MD [address] [facility] [address] [place] [address] Phone: tel: fax: Sarah Merchant, PT 1 [place] [address] Phone: tel: Referral ID Status Reason Start Date Expiration Date V isits Requested Visits Authorized [id number] Authorized 09/07/2024 05/02/2025 99 99 Reason Comments Physical Therapy Specialty Diagnoses / Procedures Referred By Contac t Referred To Contact Physical Therapy / PHYSICAL THERAPY Diagnoses Right knee Procedures NEW RS PT ORTH K Geeta Cadet, SERGE [address] [place] [address] Sarah Merchant, PT [address] [place] [address] Referral ID Status Reason Start Date Expiration Date V isits Requested Visits Authorized [id number] Authorized 11/15/2023 05/02/2024 99 99 Reason Comments [...] Health Navigation Outreach 06/02/2022 [facility] Reason Comments Extreme fatigue Reason Comments [...] PRE&POST-BRNCDILAT ADMN Michael Puga L, DO [address] [place] [address] Respiratory Edwards [address] [place] [address] Referral ID Status Reason Start Date Expiration Date V isits Requested Visits Authorized [id number] Closed Auto-Generate d Referral 12/22/2022 01/21/2024 1 1 Reason Comments Orders Reason Onset Date Comments F/U 3 Month Immunizations 04/05/2023 Flu vaccination Reason Onset Date Comments Transition Of Care 10/04/2023 TCM / [facility] //OON Reason Comments HH: orders, update, [...] pain. Specialty Diagnoses / Procedures Referred By Colton bond Referred To Contact General Surgery Diagnoses Epigastric abdominal pain Procedures CONSULT TO GENERAL SURGERY OFFICE/OUTPATIENT NEW HIGH MDM 60 MINUTES Michael Puga, DO [address] [place] [address] Referral ID Status Reason Start Date Expiration Date V isits Requested Visits Authorized [id number] Closed PCP Requested Referral 03/01/2024 03/01/2025 1 [...] Reason Onset Date Comments Refill Request 11/27/2024 Reason Comments [facility] Plan of Care Reason Comments POC - PT Reason Comments Consult Blood in stool Care Teams (unrecognized sec tion and content) Forge Operator Helper Relationship Specialty Start Date End Date Michael Puga, DO [address] [place], [place] [id number] PCP - General Family Practice 05/06/16 Forge Operator Helper Relationship Specialty Start Date End Date Michael Puga, DO [address] [place], [place] [id number] PCP - General Family Practice 05/06/16 Forge Operator Helper Relationship Specialty Start Date End Date Michael Puga, DO [address] [place] [address] PCP - General Family Practice 05/06/16 Forge Operator Helper Relationship Specialty Start Date End Date Michael Puga, DO [address] [place] [address] PCP - General Family Practice 05/06/16 Forge Operator Helper Relationship Specialty Start Date End Date Michael Puga, DO [address] [place] [address] PCP - General Family Practice 05/06/16 Forge Operator Helper Relationship Specialty Start Date End Date Michael Puga, DO [address] [place] [address] PCP - General Family Practice 05/06/16 Forge Operator Helper Relationship Specialty Start Date End Date Michael Puga, DO [address] [place] [address] PCP - General Family Practice 05/06/16 Forge Operator Helper Relationship Specialty Start Date End Date Michael Puga, DO [address] [place] [address] PCP - General Family Medicine 05/06/16 Forge Operator Helper Relationship Specialty Start Date End Date Michael Puga, DO [address] [place] [address] PCP - General Family Medicine 05/06/16 Forge Operator Helper Relationship Specialty Start Date End Date Michael Puga, DO [address] [place] [address] PCP - General Family Medicine 05/06/16 Forge Operator Helper Relationship Specialty Start Date End Date Michael Puga, DO [address] [place] [address] PCP - General Family Medicine 05/06/16 Forge Operator Helper Relationship Specialty Start Date End Date Michael Puga, DO [address] [place] [address] PCP - General Family Medicine 05/06/16 Forge Operator Helper Relationship Specialty Start Date End Date Michael Puga, DO [address] [place] [address] PCP - General Family Medicine 05/06/16 Forge Operator Helper Relationship Specialty Start Date End Date Michael Puga, DO [address] [place] [address] PCP - General Family Medicine 05/06/16 Forge Operator Helper Relationship Specialty Start Date End Date Michael Puga, DO [address] [place] [address] PCP - General Family Medicine 05/06/16 Forge Operator Helper Relationship Specialty Start Date End Date Michael Puga DO [address] [place] [address] PCP - General Family Medicine 05/06/16 Forge Operator Helper Relationship Specialty Start Date End Date Michael Puga DO [address] [place] [address] PCP - General Family Medicine 05/06/16 Forge Operator Helper Relationship Specialty Start Date End Date Michael Puga DO [address] [place] [address] PCP - General Family Medicine 05/06/16 Forge Operator Helper Relationship Specialty Start Date End Date Michael Puga DO [address] [place] [address] PCP - General Family Medicine 05/06/16 Forge Operator Helper Relationship Specialty Start Date End Date Michael Puga DO [address] [place] [address] PCP - General Family Medicine 05/06/16 Forge Operator Helper Relationship Specialty Start Date End Date Michael Puga DO [address] [place] [address] PCP - General Family Medicine 05/06/16 Forge Operator Helper Relationship Specialty Start Date End Date Michael Puga DO [address] [place] [address] PCP - General Family Medicine 05/06/16 Forge Operator Helper Relationship Specialty Start Date End Date Michael Puga DO [address] [place] [address] PCP - General Family Medicine 05/06/16 Isabella Michel, GLYNN [address] [place] [address] Primary Care Cluster Bore Operator 10/04/23 Forge Operator Helper Relationship Specialty Start Date End Date Michael Puga DO [address] [place] [address] PCP - General Family Medicine 05/06/16 Isabella Michel, GLYNN [address] [place] [address] Primary Care Cluster Bore Operator 10/04/23 Forge Operator Helper Relationship Specialty Start Date End Date Michael Puga DO [address] [place] [address] PCP - General Family Medicine 05/06/16 Isabella Michel, GLYNN [address] [place] [address] Primary Care Cluster Bore Operator 10/04/23 Forge Operator Helper Relationship Specialty Start Date End Date Michael Puga DO [address] [place] [address] PCP - General Family Medicine 05/06/16 Isabella Michel, GLYNN [address] [place] [address] Primary Care Cluster Bore Operator 10/04/23 Forge Operator Helper Relationship Specialty Start Date End Date Michael Puga DO [address] [place] [address] PCP - General Family Medicine 05/06/16 Isabella Michel, GLYNN [address] [place] [address] Primary Care Cluster Bore Operator 10/04/23 Forge Operator Helper Relationship Specialty Start Date End Date Michael Puga DO [address] [place] [address] PCP - General Family Medicine 05/06/16 Isabella Michel RN [address] [place] [address] Primary Care Cluster Bore Operator 10/04/23 Forge Operator Helper Relationship Specialty Start Date End Date Michael Puga DO [address] [place] [address] PCP - General Family Medicine 05/06/16 Forge Operator Helper Relationship Specialty Start Date End Date Michael Puga DO [address] [place] [address] PCP - General Family Medicine 05/06/16 Forge Operator Helper Relationship Specialty Start Date End Date Michael Puga DO [address] [place] [address] PCP - General Family Medicine 05/06/16 Forge Operator Helper Relationship Specialty Start Date End Date Michael Puga DO [address] [place] [address] PCP - General Family Medicine 05/06/16 Forge Operator Helper Relationship Specialty Start Date End Date Michael Puga DO [address] [place] [address] PCP - General Family Medicine 05/06/16 Forge Operator Helper Relationship Specialty Start Date End Date Michael Puga, [address] [place] [address] PCP - General Family Medicine 05/06/16 Forge Operator Helper Relationship Specialty Start Date End Date Michael Puga DO [address] [place] [address] PCP - General Family Medicine 05/06/16 Forge Operator Helper Relationship Specialty Start Date End Date Michael Puga DO [address] [place] [address] PCP - General Family Medicine 05/06/16 Forge Operator Helper Relationship Specialty Start Date End Date Michael Puga DO [address] [place] [address] PCP - General Family Medicine 05/06/16 Forge Operator Helper Relationship Specialty Start Date End Date Michael Puga DO [address] [facility] [place] [address] PCP - General Family Medicine 05/06/16 Forge Operator Helper Relationship Specialty Start Date End Date Michael Puga DO [address] [place] [address] PCP - General Family Medicine 05/06/16 Forge Operator Helper Relationship Specialty Start Date End Date Michael Puga DO [address] [place] [address] PCP - General Family Medicine 05/06/16 Forge Operator Helper Relationship Specialty Start Date End Date Michael Puga, [address] [place] [address] PCP - General Family Medicine 05/06/16 Forge Operator Helper Relationship Specialty Start Date End Date Michael Puga, [address] [place] [address] PCP - General Family Medicine 05/06/16 Forge Operator Helper Relationship Specialty Start Date End Date Michael Puga DO [address] [place] [address] PCP - General Family Medicine 05/06/16 Forge Operator Helper Relationship Specialty Start Date End Date Michael Puga DO [address] [place] [address] PCP - General Family Medicine 05/06/16 Forge Operator Helper Relationship Specialty Start Date End Date Michael Puga DO [address] [place] [address] PCP - General Family Medicine 05/06/16 Forge Operator Helper Relationship Specialty Start Date End Date Michael Puga DO [address] [place] [address] PCP - General Family Medicine 05/06/16 Forge Operator Helper Relationship Specialty Start Date End Date Michael Puga DO [address] [place] [address] PCP - General Family Medicine 05/06/16 Key Portillo, GATHERING MACHINE SETTER.BRIDGE BUILDER [address] [facility] [place] [place] [address] [facility] 04/[facility]24 Asia Rosales, GATHERING MACHINE SETTER.BRIDGE BUILDER [address] [facility] [place] [address] Stuffed [facility]asing [facility] 04/09/24 Forge Operator Helper Relationship Specialty Start Date End Date Michael Puga DO [address] [facility] [place] [address] PCP - General Family Medicine 05/06/16 Key Portillo, GATHERING MACHINE SETTER.BRIDGE BUILDER [address] [place] [address] Formerly [facility] 04/09/24 ConnieAsia, GATHERING MACHINE SETTER.BRIDGE BUILDER [address] [facility] [place] [place] [address] [facility] 04/09/24 Forge Operator Helper Relationship Specialty Start Date End Date Michael Puga DO [address] [facility] [place] [place] [address] PCP - General Family Medicine 05/06/16 Key Portillo, GATHERING MACHINE SETTER.BRIDGE BUILDER [address] [place] [address] Formerly [facility] 04/09/24 Asia Rosales, GATHERING MACHINE SETTER.BRIDGE BUILDER [address] [facility] [place] [address] Formerly [facility] 04/09/24 Forge Operator Helper Relationship Specialty Start Date End Date Michael Puga DO [address] [place] [address] PCP - General Family Medicine 05/06/16 Key Portillo, GATHERING MACHINE SETTER.BRIDGE BUILDER [address] [place] [address] Stuffed Casing [facility] 04/09/24 ConnieAsia, GATHERING MACHINE SETTER.BRIDGE BUILDER [address] [place] [address] Stuffed Casing Tier Family [facility] 04/09/24 Forge Operator Helper Relationship Specialty Start Date End Date Michael Puga DO [address] [place] [address] PCP - General Family Medicine 05/06/16 Key Portillo, GATHERING MACHINE SETTER.BRIDGE BUILDER [address] [place] [address] Stuffed Casing Tier Family [facility] 04/09/24 Asia Rosales, GATHERING MACHINE SETTER.BRIDGE BUILDER [address] [place] [address] Stuffed Casing Tier Family [facility] 04/09/24 Forge Operator Helper Relationship Specialty Start Date End Date Michael Puga DO [address] [place] [address] PCP - General Family Medicine 05/06/16 Key Portillo, GATHERING MACHINE SETTER.BRIDGE BUILDER [address] [place] [address] Stuffed Casing Tier [facility] 04/09/24 Asia Rosales, GATHERING MACHINE SETTER.BRIDGE BUILDER [address] [place] [address] Stuffed Casing Tier Family [facility] 04/09/24 Forge Operator Helper Relationship Specialty Start Date End Date Michael Puga DO [address] [place] [address] PCP - General Family Medicine 05/06/16 Key Portillo, GATHERING MACHINE SETTER.BRIDGE BUILDER [address] [place] [address] Stuffed Casing Tier Family [facility] 04/09/24 ConnieAsia, GATHERING MACHINE SETTER.BRIDGE BUILDER [address] [place] [address] [facility] 04/09/24 Forge Operator Helper Relationship Specialty Start Date End Date Michael Puga DO [address] [place] [address] PCP - General Family Medicine 05/06/16 Key Portillo, GATHERING MACHINE SETTER.BRIDGE BUILDER [address] [place] [address] St[facility] 04/09/24 ConnieAsia, GATHERING MACHINE SETTER.BRIDGE BUILDER [address] [place] [address] St[facility] 04/09/24 Forge Operator Helper Relationship Specialty Start Date End Date Michael Puga DO [address] [place] [address] PCP - General Family Medicine 05/06/16 Key Portillo, GATHERING MACHINE SETTER.BRIDGE BUILDER [address] [place] [address] Stuffed Casing Tier Family [facility] 04/09/24 Asia Rosales, GATHERING MACHINE SETTER.BRIDGE BUILDER [address] [facility] [place] [address] Formerly [facility] 04/09/24 Forge Operator Helper Relationship Specialty Start Date End Date Michael Puga DO [address] [facility] [place] [address] PCP - General Family Medicine 05/06/16 Key Portillo, GATHERING MACHINE SETTER.BRIDGE BUILDER [address] [facility] [place] [address] [facility]ly [facility] 04/09/24 Asia Rosales, GATHERING MACHINE SETTER.BRIDGE BUILDER [address] [facility] [place] [address] [facility]ly [facility] 04/09/24 Forge Operator Helper Relationship Specialty Start Date End Date Michael Puga DO [address] [facility] [place] [address] PCP - General Family Medicine 05/06/16 Key Portillo, GATHERING MACHINE SETTER.BRIDGE BUILDER [address] [facility] [place] [address] [facility]ly [facility] 04/09/24 Asia Rosales, GATHERING MACHINE SETTER.BRIDGE BUILDER [address] [facility] [place] [address] [facility]ly [facility] 04/09/24 Forge Operator Helper Relationship Specialty Start Date End Date Michael Puga DO [address] [facility] [place] [address] PCP - General Family Medicine 05/06/16 Key Portillo, GATHERING MACHINE SETTER.BRIDGE BUILDER [address] [facility] [place] [address] [facility] 04/09/24 ConnieAsia, GATHERING MACHINE SETTER.BRIDGE BUILDER [address] [facility] [place] [address] [facility] 04/09/24 Team Status: Active Member Role Status [...] Provider Active Start: July 07, 2024 Anabel ALVA PA Attending Provider Active Start: July 07, 2024 Anabel ALVA PA Referring [...] July 07, 2024 End: July 07, 2024 Forge Operator Helper Relationship Specialty Start Date End Date Michael Puga DO [address] [place] [address] PCP - General Family Medicine 05/06/16 [facility], GATHERING MACHINE SETTER.BRIDGE BUILDER [address] [place] [address] Stuffed [facility] 04/09/24 Forge Operator Helper Relationship Specialty Start Date End Date Michael Puga DO [address] [place] [address] PCP - General Family Medicine 05/06/16 ConnieAsia, GATHERING MACHINE SETTER.BRIDGE BUILDER [address] [place] [address] Stuffed [facility]asing [facility] 04/09/24 Forge Operator Helper Relationship Specialty Start Date End Date Michael Puga DO [address] [place] [address] PCP - General Family Medicine 05/06/16 ConnieAsia, GATHERING MACHINE SETTER.BRIDGE BUILDER [address] [place] [address] Stuffed [facility]asing [facility] 04/09/24 Forge Operator Helper Relationship Specialty Start Date End Date Michael Puga DO [address] [place] [address] PCP - General Family Medicine 05/06/16 [facility], GATHERING MACHINE SETTER.BRIDGE BUILDER [address] [place] [address] Stuffed [facility]asing [facility] 04/09/24 Forge Operator Helper Relationship Specialty Start Date End Date Michael Puga DO [address] [place] [address] PCP - General Family Medicine 05/06/16 ConnieAsia, GATHERING MACHINE SETTER.BRIDGE BUILDER [address] [place] [address] Stuffed [facility] 04/09/24 Forge Operator Helper Relationship Specialty Start Date End Date Michael Puga DO [address] [place] [address] PCP - General Family Medicine 05/06/16 ConnieAsia, GATHERING MACHINE SETTER.BRIDGE BUILDER [address] [place] [address] Stuffed [facility]asing [facility] 04/09/24 Forge Operator Helper Relationship Specialty Start Date End Date Michael Puga DO [address] [place] [address] PCP - General Family Medicine 05/06/16 [facility], GATHERING MACHINE SETTER.BRIDGE BUILDER [address] [place] [address] Stuffed [facility]asing [facility] 04/09/24 Forge Operator Helper Relationship Specialty Start Date End Date Michael Puga DO [address] [place] [address] PCP - General Family Medicine 05/06/16 ConnieAsia, GATHERING MACHINE SETTER.BRIDGE BUILDER [address] [place] [address] [facility] Forge Operator Helper Relationship Specialty Start Date End Date Michael Puga DO [address] [place] [address] PCP - General Family Medicine 05/06/16 ConnieAsia, GATHERING MACHINE SETTER.BRIDGE BUILDER [address] [place] [address] Formerly [facility] 04/09/24 Islea Barton, GATHERING MACHINE SETTER.BRIDGE BUILDER [address] [place] [address] Formerly [facility] 10/16/24 Forge Operator Helper Relationship Specialty Start Date End Date Michael Puga DO [address] [place] [address] PCP - General Family Medicine 05/06/16 ConnieAsia, GATHERING MACHINE SETTER.BRIDGE BUILDER [address] [place] [address] Formerly [facility] 04/09/24 Isela Barton, GATHERING MACHINE SETTER.BRIDGE BUILDER [address] [place] [address] Formerly [facility] 10/16/24 Team Status: Active Member Role/Relationship [...] October 23, 2024 End: October 23, 2024 Forge Operator Helper Relationship Specialty Start Date End Date Michael Puga DO [address] [place], [place] [address] PCP - General Family Medicine 05/06/16 Asia Rosales, GATHERING MACHINE SETTER.BRIDGE BUILDER [address] [place], [place] [id number] Stuffed Casing Tier Family [facility] 04/09/24 Isela Barton, GATHERING MACHINE SETTER.BRIDGE BUILDER [address] [place] [address] Stuffed Casing Tier Family [facility] 10/16/24 Team Status: Inactive Member Role/Relationship Status [...] Start: October 31, 2024 Anabel ALVA PA Referring [...] 2024 End: October 31, 2024 Anabel Horne PA PA Referring Provider Active Start: October 31, [...] November 02, 2024 End: November 02, 2024 NIDA Tran Attending Provider Active Start: November 02, 2024 [...] End: December 03, 2024 Dr. Virgil Tyler DO Emergency Provider Active Start: November 29, 2024 End: December 03, 2024 Dr. Tacho Davis DO Admit Provider Active Start: November 29, 2024 End: December 03, 2024 Dr. Tacho Davis DO Other Provider Active Start: November 29, 2024 [...] Start: November 30, 2024 Dr. Virgil Tyler DO Emergency Provider Active Start: November 30, 2024 Dr. Tacho de Sacha , DO Admit Provider Active Start: November 30, [...] Start: December 02, 2024 Dr. Virgil Tyler DO Emergency Provider Active Start: December 02, [...] Other Provider Active Start: December 02, 2024 Team Status: Inactive Member Role/Relationship Status Dates Dr. Michael Puga DO Primary Care Provider Active Start: November 26, 2024 End: November 26, 2024 Dr. Gallo Hickey MD Attending Provider Active S tart: November 26, 2024 End: November 26, 2024 Team Status: Inactive Member Role/Relationship Status Dates Dr. Michael Puga DO Primary Care Provider Active Start: November 29, 2024 End: December 03, 2024 Dr. Virgil Tyler DO Emergency Provider Active Start: November 29, 2024 End: December 03, 2024 Dr. Tacho Davis DO Admit Provider Active Start: November 29, 2024 End: December 03, 2024 Dr. Tacho Davis DO Other Provider Active Start: November 29, 2024 [...] Start: November 30, 2024 Dr. Virgil Tyler DO Emergency Provider Active Start: November 30, [...] Start: December 01, 2024 Dr. Virgil Tyler , Emergency Provider Active Start: December 01, 2024 [...] December 02, 2024 Dr. Virgil Tyler , Emergency Provider Active Start: December 02, 2024 Dr. Tacho Davis DO Admit Provider Active Start: December 02, 2024 Dr. Tacho Davis DO Other Provider Active Start: December 02, 2024 Dr. Waleska Phillips MD Attending Provider Active Start: December 02, 2024 Dr. Waleska Phillips MD Other Provider Active Star t: December 02, 2024 Dr. Jonny Vicente MD Other Provider Active Start: December 02, 2024 Team Status: Active Member Role/Relationship Status Dates Dr. Michael Puga DO Primary Care Provider Active Start: December 03, 2024 Dr. Virgil Tyler DO Emergency Provider Active Start: December 03, 2024 Dr. Tacho Davis DO Admit Provider Active Start: December 03, 2024 Dr. Tacho Davis DO Other Provider Active Start: December 03, 2024 Dr. Waleska Phillips MD Attending Provider Active Start: December 03, 2024 Dr. Waleska Phillips MD Other Provider Active Star t: December 03, 2024 Dr. Jonny Vicente MD Other Provider Active Start: December 03, 2024 Team Status: Active Member Role/Relationship Status Dates Dr. Michael Puga DO Primary Care Provider Active Start: December 03, 2024 Dr. Tavares Anthony MD Admit Provider Active Star t: December 03, 2024 Dr. Tavares Anthony MD Other Provider Active Star t: December 03, 2024 Dr. Radha Munoz DO Attending Provider Act gayle Start: December 03, 2024 Team Status: Active Member Role/Relationship Status Dates Dr. Michael Puga DO Primary Care Provider Active Start: December 04, 2024 Dr. Tavares Anthony MD Admit Provider Active Star t: December 04, 2024 Dr. Tavares Anthony MD Other Provider Active Star t: December 04, 2024 Dr. Radha Munoz DO Attending Provider Act gayle Start: December 04, 2024 Dr. Radha Munoz DO Other Provider Active Start: December 04, 2024 Team Status: Active Member Role/Relationship Status Dates Dr. Michael Puga DO Primary Care Provider Active Start: December 05, 2024 Dr. Tavares Anthony MD Admit Provider Active Star t: December 05, 2024 Dr. Tavares Anthony MD Other Provider Active Star t: December 05, 2024 Dr. Zehra Sementi , DO Attending Provider Act gayle Start: December 05, 2024 Dr. Radha Munoz DO Other Provider Active Start: December 05, 2024 Team Status: Active Member Role/Relationship Status Dates Dr. Michael Puga DO Primary Care Provider Active Start: December 06, 2024 Dr. Tavares Anthony MD Admit Provider Active Star t: December 06, 2024 Dr. Tavares Anthony MD Other Provider Active Star t: December 06, 2024 Dr. Radha Munoz DO Attending Provider Act gayle Start: December 06, 2024 Dr. Radha Munoz DO Other Provider Active Start: December 06, 2024 Team Status: Active Member Role/Relationship Status Dates Dr. Michael Puga DO Primary Care Provider Active Start: December 07, 2024 Dr. Tavares Anthony MD Admit Provider Active Star t: December 07, 2024 Dr. Tavares Anthony MD Other Provider Active Star t: December 07, 2024 Dr. Radha Munoz DO Attending Provider Act gayle Start: December 07, 2024 Dr. Radha Munoz DO Other Provider Active Start: December 07, 2024 Team Status: Active Member Role/Relationship Status Dates Dr. Michael Puga DO Primary Care Provider Active Start: December 11, 2024 Dr. Tavares Anthony MD Admit Provider Active Star t: December 11, 2024 Dr. Tavares Anthony MD Other Provider Active Star t: December 11, 2024 Dr. Radha Munoz DO Attending Provider Act gayle Start: December 11, 2024 Dr. Radha Munoz DO Other Provider Active Start: December 11, 2024 Team Status: Active Member Role/Relationship Status Dates Dr. Michael Puga DO Primary Care Provider Active Start: December 12, 2024 Dr. Tavares Anthony MD Admit Provider Active Star t: December 12, 2024 Dr. Tavares Anthony MD Other Provider Active Star t: December 12, 2024 Dr. Radha Munoz DO Attending Provider Act gayle Start: December 12, 2024 Dr. Radha Munoz DO Other Provider Active Start: December 12, 2024 Team Status: Inactive Member Role/Relationship Status Dates Dr. Michael Puga DO Primary Care Provider Active Start: December 03, 2024 End: December 14, 2024 Dr. Tavares Anthony MD Admit Provider Active Star t: December 03, 2024 End: December 14, 2024 Dr. Tavares Anthony MD Other Provider Active Star t: December 03, 2024 End: December 14, 2024 Dr. Radha Munoz DO Attending Provider Act gayle Start: December 03, 2024 End: December 14, 2024 Team Status: Active Member Role/Relationship Status Dates Dr. Michael Puga DO Primary Care Provider Active Start: December 14, 2024 Dr. Tavares Anthony MD Admit Provider Active Star t: December 14, 2024 Dr. Tavares Anthony MD Other Provider Active Star t: December 14, 2024 Dr. Radha Munoz DO Attending Provider Act gayle Start: December 14, 2024 Dr. Radha Munoz DO Other Provider Active Start: December 14, 2024 Forge Operator Helper Relationship Specialty Start Date End Date Michael Puga DO [address] [place] [address] PCP - General Family Medicine 05/06/16 [facility] GATHERING MACHINE SETTER.BRIDGE BUILDER [address] [place] [address] Stuffed Casing Tier Family [facility] 04/09/24 Isela Barton, GATHERING MACHINE SETTER.BRIDGE BUILDER [address] [place], [place] [address] Stuffed Casing Tier Family [facility] 10/16/24 Forge Operator Helper Relationship Specialty Start Date End Date Michael Puga DO [address] [place], [place] [id number] PCP - General Family Medicine 05/06/16 [facility] GATHERING MACHINE SETTER.BRIDGE BUILDER [address] [place], [place] [address] Formerly [facility] 04/09/24 Isela Barton, GATHERING MACHINE SETTER.BRIDGE BUILDER [address] [place], [place] [address] Formerly [facility] 10/16/24 Forge Operator Helper Relationship Specialty Start Date End Date Michael Puga DO [address] [place], [place] [id number] PCP - General Family Medicine 05/06/16 Asia Rosales APRN.BRIDGE BUILDER [address] [place], [place] [id number] Formerly [facility] 04/09/24 Isela Barton, GATHERING MACHINE SETTER.BRIDGE BUILDER [address] [place], [place] [id number] Formerly [facility] 10/16/24 Goals (unrecognized section and content) Goals may [...] BE BASED ON THE PRIMARY CLINICAL RECORDS. [email or web address] provides no warranty or guarantee of the accuracy or completeness of information in this document.
[2024-12-23 21:04] VITALS: BP 159/56; PULSE 60; RESP 17; O2SAT 94
[2024-12-23 21:05] LABS: Anion Gap 15 (5-15); BUN 25 mg/dL (4-19); BUN/Creat Ratio 21.0 RATIO (10-20); Calcium,Total 9.0 mg/dL (7.6-11.0); Carbon Dioxide 22.6 mmol/L (21.0-32.0); Chloride 104 mmol/L (98-108); Glucose 119 mg/dL (70-99); Potassium 3.6 mmol/L (3.3-5.1); Pro- Brain NATRIURETIC PEPTIDE 1330 pg/mL (<=1800)
[2024-12-23 21:28] VITALS: O2SAT 96
[2024-12-23 22:05] VITALS: BP 156/61; PULSE 62; RESP 19; TEMP 36.4; O2SAT 96
== END 2024-12-23 22:06 | disposition home or self-care (01) ==
PROVIDERS: Emergency Provider Emergency Medicine; PCP Nurse Practitioner Family; Visit Provider Emergency Medicine
DX: R06.09 Other forms of dyspnea (principal); I11.0 Hypertensive heart disease with heart failure; I50.9 Heart failure, unspecified; J44.9 Chronic obstructive pulmonary disease, unspecified; E78.5 Hyperlipidemia, unspecified; Z95.0 Presence of cardiac pacemaker; D72.829 Elevated white blood cell count, unspecified
CPT/HCPCS: 71045; 80048; 83880; 85025; 93005; 99284; A4216

== ENCOUNTER 2024-12-29 13:11 | Inpatient (IN) | payer MEDICARE, OTHER, SELFPAY ==
[2024-12-29] VITALS (10 sets, daily range): BP systolic 148–173; BP diastolic 48–78; PULSE 60–67; RESP 18–20; TEMP 36.3–37.1; O2SAT 91–100; BMI 42.2; BMI 40.3
--- NOTE | 2024-12-29 13:22 | EKG12_ITS ---
Test Reason : NEURO Blood Pressure : */* mmHG Vent. Rate : 60 BPM Atrial Rate : 60 BPM P-R Int : 196 ms QRS Dur : 94 ms QT Int : 436 ms P-R-T Axes : * 27 54 degrees QTcB Int : 436 ms Atrial-paced rhythm Nonspecific ST and T wave abnormality Abnormal ECG Confirmed by Blair Saldana ([id number]), associate editor KATIA MEDEIROS ([id number]) on 01/02/2025 9:57:06 AM Referred By: Confirmed By: Blair Saldana
--- NOTE | 2024-12-29 13:26 | EX.ED.DYSGE1 ---
HPI <NIDA Cullen - Last Filed: 12/29/24 16:27> History of Present Illness Chief Complaint: Lower Extremity Injury Narrative Narrative: 84-year-old female with PMH of hypertension, hyperlipidemia, pacemaker, GERD, GI bleed, pulmonary hypertension presents due to shortness of breath. She is a poor informant. States she has felt short of breath for a while and her button station worker told her to see her warehouse trainer. She was at Dr. Alcala's office this morning and her right leg was twitching and jumping off the bed. She states they were concern for strokelike activity. But then she tells me that her warehouse trainer said she needs a heart cath and that is why she was sent to the ED. She denies fever, chills, chest pain, palpitations, or upper respiratory symptoms. No vomiting or diarrhea. She is on low-dose aspirin and is not on anticoagulation due to history of GI bleeds. 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 Right carotid bruit Pulmonary hypertension GI bleed (2018) Essential (primary) hypertension Osteoarthritis Anxiety Daytime somnolence Dysmetabolic syndrome X Allergic rhinitis Malignant melanoma of skin of trunk, except scrotum Hyperlipidemia FH: sudden cardiac (SCD) Depression Paroxysmal atrial fibrillation Sick sinus syndrome Carotid artery disease Home Medications ?Medication ?Instructions ?Recorded ?Last Taken ?Type aspirin 81 mg tablet,delayed 81 mg PO QDAY [facility] #90 tabs 12/27/18 12/03/24 Rx release (Adult Low Dose Aspirin) coenzyme Q10 100 mg capsule (Co 100 mg PO DAILY supplement 01/23/20 Unknown History Q-10) rosuvastatin 10 mg tablet 10 mg PO DAILY cholesterol 01/23/20 Unknown History sucralfate 100 mg/mL oral 10 ml PO TID PRN digestion 11/25/21 Unknown History suspension cyclosporine 0.05 % eye drops in a 1 drp EACH EYE Q12H eye health 09/27/23 12/03/24 History dropperette (Restasis) albuterol sulfate 90 mcg/actuation 2 puff inhalation Q6H PRN 10/02/23 Unknown Rx aerosol inhaler (ProAir HFA) shortness of breath or wheezing #6.7 grams levothyroxine 50 mcg capsule 50 mcg PO QDAY Thyroid 01/25/24 12/03/24 History fluticasone propionate 110 1 inh inhalation Q12H SOB/Wheezing 04/30/24 12/03/24 History mcg/actuation HFA aerosol inhaler vitamin B complex (Balanced B-50 1 tab PO DAILY supplement 04/30/24 Unknown History tablet) diltiazem HCl 240 mg 240 mg PO QHS heart #90 caps 05/15/24 12/02/24 Rx capsule,extended release 24 hr amiodarone 200 mg tablet 200 mg PO DAILY heart #90 tabs 07/20/24 Unknown Rx losartan 100 mg tablet 100 mg PO DAILY blood pressure #90 09/11/24 12/03/24 Rx tabs azelastine 0.05 % eye drops 1 drp ophthalmic (eye) BID PRN eye 11/02/24 Unknown History drops omeprazole 20 mg capsule,delayed 20 mg PO QDAY GERD 11/02/24 Unknown History release acetaminophen 500 mg tablet 1,000 mg (2 x 500 mg) PO Q6H PRN 12/13/24 Unknown Rx PRN Pain 1-10 Or Fever #90 tabs gabapentin 100 mg capsule 100 mg PO QHS #30 caps 12/13/24 Unknown Rx hydralazine 25 mg tablet 25 mg PO TID #90 tabs 12/13/24 Unknown Rx hydralazine 50 mg tablet 75 mg (1.5 x 50 mg) PO TID #90 tabs 12/13/24 Unknown Rx lidocaine 5 % topical patch 1 patch topical DAILY #30 ea 12/13/24 Unknown Rx meloxicam 15 mg tablet 15 mg PO DAILY Joint pain #1 TAB 12/13/24 Unknown Rx sertraline 25 mg tablet See Rx Instructions .Route 12/13/24 Unknown Rx .COMPLEX #42 tabs sodium chloride 1,000 mg soluble 1,000 mg PO QDAY #60 tabs 12/27/24 Unknown Rx tablet spironolactone 25 mg tablet 25 mg PO DAILY fluid retention #30 12/27/24 Unknown Rx tabs Allergy/AdvReac Type Severity Reaction Status Date / Time ciprofloxacin (From Cipro) Allergy Rash Verified 12/29/24 13:12 Penicillins (PCN) Allergy Hives Verified 12/29/24 13:12 Sulfa (Sulfonamide Allergy Hives Verified 12/29/24 13:12 Antibiotics) Beta-Blockers AdvReac Other Verified 12/29/24 13:12 (Beta-Adrenergic Bloc hydrocodone (From Vicodin) AdvReac Other Verified 12/29/24 13:12 lisinopril AdvReac cough Verified 12/29/24 13:12 meperidine (From Demerol) AdvReac Vomiting Verified 12/29/24 13:12 morphine AdvReac Other Verified 12/29/24 13:12 pravastatin AdvReac Other Verified 12/29/24 13:12 Family History Grandfather Myocardial infarction Sudden cardiac Father Myocardial infarction CAD (coronary artery disease) CHF (congestive heart failure) Mother Myocardial infarction CAD (coronary artery disease) A-fib Brother A-fib CHF (congestive heart failure) Brother Cancer Son Diabetes Son Hypertension Surgical History History of permanent cardiac pacemaker placement (06/09/21) History of esophagogastroduodenoscopy (EGD) (09/07/18) History of left heart catheterization (LHC) (05/2011) 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) History of total right knee replacement (TKR) (~08/2011) History of right hip replacement (~2003) History of cholecystectomy History of total left knee replacement (TKR) Social History household members: none housing: house Smoking Status: Never smoker alcohol intake: never substance use type: does not use caffeine: Yes what type of physical activity do you participate in: none seatbelt use: always ROS <NIDA Cullen - Last Filed: 12/29/24 16:27> ROS ED ROS Narrative Constitutional: Negative for fever, chills, malaise. CVS: Negative for palpitations, chest pain, syncope. Respiratory: Positive for shortness of breath. GI: Negative for abdominal pain, nausea, vomiting. EXAM <NIDA Cullen - Last Filed: 12/29/24 16:27> Physical Exam Narrative Exam Narrative: CONST: Patient sitting in no acute distress. EYES: Normal inspection. NECK: Normal inspection. RESP: No respiratory distress, CTAB. CVS: Regular rate and rhythm, no murmur, no gallop. ABD: Soft and nontender, no guarding or rebound, nondistended. SKIN: Color normal, no rash, warm, dry, intact. EXTREMITIES: Normal appearance, trace bilateral ankle edema. NEURO: Alert and answering questions appropriately. PSYCH: Normal affect. Const Vital Signs: 12/29/24 13:13 12/29/24 13:18 12/29/24 15:12 Temperature 98.7 F 98.6 F Temperature Source Oral Temporal Pulse Rate 60 67 Respiratory Rate 20 H 18 Respiratory Effort Short of Breath Respiratory Depth Shallow Respiratory Pattern Tachypnea Blood Pressure 170/78 H 171/78 H Blood Pressure Mean 108 109 Pulse Ox 100 95 Oxygen Delivery Method Room Air Room Air Room Air 12/29/24 16:17 Temperature 97.7 F L Temperature Source Pulse Rate 60 Respiratory Rate 20 H Respiratory Effort Respiratory Depth Respiratory Pattern Blood Pressure 173/66 H Blood Pressure Mean 101 Pulse Ox 93 Oxygen Delivery Method <Dr. Cheryl Garcia MD - Last Filed: 12/29/24 16:32> Physical Exam Const Vital Signs: 12/29/24 13:13 12/29/24 13:18 12/29/24 15:12 Temperature 98.7 F 98.6 F Temperature Source Oral Temporal Pulse Rate 60 67 Respiratory Rate 20 H 18 Respiratory Effort Short of Breath Respiratory Depth Shallow Respiratory Pattern Tachypnea Blood Pressure 170/78 H 171/78 H Blood Pressure Mean 108 109 Pulse Ox 100 95 Oxygen Delivery Method Room Air Room Air Room Air 12/29/24 16:17 Temperature 97.7 F L Temperature Source Pulse Rate 60 Respiratory Rate 20 H Respiratory Effort Respiratory Depth Respiratory Pattern Blood Pressure 173/66 H Blood Pressure Mean 101 Pulse Ox 93 Oxygen Delivery Method MDM <NIDA Cullen - Last Filed: 12/29/24 16:27> MDM MDM Narrative Medical decision making narrative: Consults: Cardiology, hospitalist Differential includes but not limited to CHF, A-fib, ACS 84-year-old female presents for ongoing shortness of breath. History of A-fib on low-dose aspirin, not anticoagulated due to history of GI bleeds. Recent echo on 11/29/2024 showed EF of 60% with moderate pulmonary hypertension. She is awake alert no distress. Vital stable. She is on 100% on room air with clear lung sounds. There is trace bilateral ankle edema. EKG shows atrial paced rhythm with no acute ST changes and serial troponins are 23 and 23 ruling out ACS. White count is normal, hemoglobin of 10.3 is stable, normal electrolytes and renal function. BNP is 1033. Chest x-ray shows mild vascular congestion and CHF. I reviewed her last cardiology visit note on 12/27/2024. They thought her shortness of breath was multifactorial. They recommended decreasing her sodium and restarting spironolactone 25 mg once daily. Patient has not picked up this medication yet. I ordered IV Lasix 40 mg and consulted cardiology. Dr. Perales said with negative cardiac enzymes the patient can follow-up outpatient to discuss elective heart catheterization. However, after this discussion her ambulatory pulse ox was noted to be 87% and I feel she needs admitted for CHF exacerbation. I discussed the case with the hospitalist. History & Record Review Discussion w/independent historian: Patient and Friend Additional record(s) reviewed:: Prior outpatient record and Prior labs Lab Data Attestation: I reviewed the patient's lab results. Labs: Laboratory Results - last 24 hr 12/29/24 12/29/24 13:18 15:31 WBC 9.4 RBC 3.37 L Hgb 10.3 L Hct 31.5 L MCV 93.5 MCH 30.6 MCHC 32.7 RDW Std Deviation 53.2 H RDW Coeff of Chandu 15.6 H Plt Count MPV 12.0 Immature Gran % (Auto) 0.900 Neut % (Auto) 75.3 H Lymph % (Auto) 12.6 L Fountain % (Auto) 9.2 Eos % (Auto) 1.4 Baso % (Auto) 0.6 Absolute Neuts (auto) 7.0 Absolute Lymphs (auto) 1.18 Nucleated RBC % 0 Platelet Estimate ADEQUATE Sodium 140 Potassium 3.8 Chloride 103 Carbon Dioxide 22.4 Anion Gap 15 BUN 20 H Creatinine 0.96 Estim Creat Clear Calc 56.24 Est GFR (MDRD) Non-Af 59 L BUN/Creatinine Ratio 21.3 H Glucose 109 H Calcium 9.3 Troponin T High Sens 23 H Troponin T Hi Sens 2 Hr 23 H NT pro BNP II 1033 Radiography Diagnostic Testing: Clinical Impression(s) from Imaging Studies Chest X-Ray 12/29/24 13:40 IMPRESSION: Borderline cardiomegaly. Vascular congestion and CHF. Blunting of both costophrenic angles worse on the right side. Reading Location: [facility] ED attending interpretation of two-view chest x-ray shows normal heart size, no pulmonary vascular congestion, small bilateral pleural effusions. EKG Initial EKG: Attestation: I personally reviewed and interpreted this EKG as follows: Comments: Atrial paced rhythm at [address] changes, no STEMI <Dr. Cheryl Garcia MD - Last Filed: 12/29/24 16:32> MDM MDM Narrative Medical decision making narrative: Consults: Cardiology, hospitalist Differential includes but not limited to CHF, A-fib, ACS 84-year-old female presents for ongoing shortness of breath. History of A-fib on low-dose aspirin, not anticoagulated due to history of GI bleeds. Recent echo on 11/29/2024 showed EF of 60% with moderate pulmonary hypertension. She is awake alert no distress. Vital stable. She is on 100% on room air with clear lung sounds. There is trace bilateral ankle edema. EKG shows atrial paced rhythm with no acute ST changes and serial troponins are 23 and 23 ruling out ACS. White count is normal, hemoglobin of 10.3 is stable, normal electrolytes and renal function. BNP is 1033. Chest x-ray shows mild vascular congestion and CHF. I reviewed her last cardiology visit note on 12/27/2024. They thought her shortness of breath was multifactorial. They recommended decreasing her sodium and restarting spironolactone 25 mg once daily. Patient has not picked up this medication yet. I ordered IV Lasix 40 mg and consulted cardiology. Dr. Perales said with negative cardiac enzymes the patient can follow-up outpatient to discuss elective heart catheterization. However, after this discussion her ambulatory pulse ox was noted to be 87% and I feel she needs admitted for CHF exacerbation. I discussed the case with the hospitalist. Patient seen and evaluated with HARJIT. I personally interviewed and examined the patient. I was involved in all aspects of patient's orders, interpretation of results, and treatment. In brief patient is a 84-year-old female presenting for shortness of breath that has been worsening over the past few weeks. EKG with atrial paced rhythm, no ischemic changes. Troponin and reflex stable at 23, no significant delta. Chest x-ray with evidence of vascular congestion and CHF. Patient given a dose of IV Lasix. Reportedly she was supposed to start spironolactone however did not leaf size picker the prescription. Patient states that she was told by her warehouse trainer that she needed a heart cath today. There is no documentation of this. With negative troponins and EKG, ruled out ACS. However patient was ambulated to discharge and dropped down to 87% on room air. Patient will require admission for CHF exacerbation. Clinical impression CHF exacerbation Lab Data Labs: Laboratory Results - last 24 hr 12/29/24 12/29/24 13:18 15:31 WBC 9.4 RBC 3.37 L Hgb 10.3 L Hct 31.5 L MCV 93.5 MCH 30.6 MCHC 32.7 RDW Std Deviation 53.2 H RDW Coeff of Chandu 15.6 H Plt Count MPV 12.0 Immature Gran % (Auto) 0.900 Neut % (Auto) 75.3 H Lymph % (Auto) 12.6 L Fountain % (Auto) 9.2 Eos % (Auto) 1.4 Baso % (Auto) 0.6 Absolute Neuts (auto) 7.0 Absolute Lymphs (auto) 1.18 Nucleated RBC % 0 Platelet Estimate ADEQUATE Sodium 140 Potassium 3.8 Chloride 103 Carbon Dioxide 22.4 Anion Gap 15 BUN 20 H Creatinine 0.96 Estim Creat Clear Calc 56.24 Est GFR (MDRD) Non-Af 59 L BUN/Creatinine Ratio 21.3 H Glucose 109 H Calcium 9.3 Troponin T High Sens 23 H Troponin T Hi Sens 2 Hr 23 H NT pro BNP II 1033 Radiography Diagnostic Testing: Clinical Impression(s) from Imaging Studies Chest X-Ray 12/29/24 13:40 IMPRESSION: Borderline cardiomegaly. Vascular congestion and CHF. Blunting of both costophrenic angles worse on the right side. Reading Location: [facility] Discharge Plan Triage Chief Complaint: Lower Extremity Injury ED Midlevel Provider: Marilia Mendosa ED Provider: Cheryl Garcia Dx/Rx/DC Orders Clinical Impression: Increasing shortness of breath, Acute exacerbation of CHF (congestive heart failure), Hypoxia, Chronic anemia Prescriptions: No Action aspirin [Adult Low Dose Aspirin] 81 mg tablet,delayed release (DR/EC) 81 mg PO QDAY Qty: 90 3RF rosuvastatin 10 mg tablet 10 mg PO DAILY coenzyme Q10 [Co Q-10] 100 mg capsule 100 mg PO DAILY sucralfate 100 mg/mL suspension 10 ml PO TID PRN (Reason: digestion) Patient Comments: TAKE 10 ML BY MOUTH 4 TIMES DAILY levothyroxine 50 mcg capsule 50 mcg PO QDAY omeprazole 20 mg capsule,delayed release(DR/EC) 20 mg PO QDAY sodium chloride 1,000 mg tablet,soluble 1,000 mg PO QDAY Qty: 60 0RF spironolactone 25 mg tablet 25 mg PO DAILY Qty: 30 11RF cyclosporine [Restasis] 0.05 % dropperette 1 drp EACH EYE Q12H albuterol sulfate [ProAir HFA] 90 mcg/actuation HFA aerosol inhaler 2 puff inhalation Q6H PRN (Reason: shortness of breath or wheezing) Qty: 6.7 0RF vitamin B complex [Balanced B-50] Tablet 1 tab PO DAILY fluticasone propionate 110 mcg/actuation HFA aerosol inhaler 1 inh inhalation Q12H azelastine 0.05 % drops 1 drp ophthalmic (eye) BID PRN (Reason: eye drops) acetaminophen 500 mg Tablet 1,000 mg PO Q6H PRN PRN (Reason: Pain 1-10 Or Fever) Qty: 90 0RF hydralazine 50 mg Tablet 75 mg PO TID Qty: 90 0RF Rx Instructions: you will take 1 50 mg tablet and 1 25 mg tablet 3 times a day to equal 75 mg 3 times a day gabapentin 100 mg Capsule 100 mg PO QHS Qty: 30 0RF lidocaine 5 % Adhesive Patch,Medicated 1 patch topical DAILY Qty: 30 0RF Protocol: *Topical Application Instructions APPLICATION INSTRUCTIONS: left outer hip Rx Instructions: remove the patch 12 H after it is applied. sertraline 25 mg tablet See Rx Instructions .ROUTE .COMPLEX Qty: 42 0RF Rx Instructions: take 2 tabs at bedtime for 2 weeks and then decrease to 1 tab at bedtime for 2 weeks then discontinue hydralazine 25 mg tablet 25 mg PO TID Qty: 90 0RF Rx Instructions: take 1 50 mg tab and 1 25 mg tab 3 times a day for a total of 75 mg 3 times a day. meloxicam 15 mg tablet 15 mg PO DAILY Qty: 1 0RF Rx Instructions: Take this with food. diltiazem HCl 240 mg capsule,extended release 24hr 240 mg PO QHS Qty: 90 3RF amiodarone 200 mg tablet 200 mg PO DAILY Qty: 90 3RF losartan 100 mg tablet 100 mg PO DAILY Qty: 90 3RF Primary Care Provider: Karen Johnson Referrals: Karen Johnson, [facility] PHYSICIAN[facility] [Primary Care Provider] - Print Language: Ivorian
--- NOTE | 2024-12-29 13:40 | RAD_ITS ---
PROCEDURE: CHEST PA AND LATERAL 12/29/2024 REASON FOR EXAM: DYSPNEA TECHNIQUE: Procedure Code: RADCXR Modality: DX Procedure: CHEST PA AND LATERAL COMPARISON: Prior study dated December 23, 2024. FINDINGS: Hardware: EKG electrodes are seen. Heart: Borderline cardiomegaly. A left-sided dual-chamber pacemaker is seen. Mediastinum: Calcification of the aortic arch. Lungs: Vascular congestion mild CHF. Blunting of both costophrenic angles slightly more prominent on the right side. Bones: Degenerative changes are identified within the thoracic spine. RAD/Chest PA and Lateral IMPRESSION: Borderline cardiomegaly. Vascular congestion and CHF. Blunting of both costophrenic angles worse on the right side. Reading Location: [id number]
[2024-12-29 13:44] LABS: Hematocrit 31.5 % (37-47); Hemoglobin 10.3 g/dL (12.0-15.0); Immature Granulocytes Count 0.080 X10^3/uL (0.0-0.0); Mean Corp Hgb Conc 32.7 g/dL (32-36); Mean Corpuscular Volume 93.5 fL (81-99); Mean Platelet Vol. 12.0 fl (6.2-12.0); NRBC Flagged by Analyzer 0 % (0-5); POSITIVE COUNT YES; RBC Distribution Width CV 15.6 % (11.6-14.6); RBC Distribution Width SD 53.2 fl (35.1-43.9); Red Blood Count 3.37 M/mm3 (4.2-5.4); White Blood Count 9.4 K/mm3 (4.4-11.0)
[2024-12-29 14:07] LABS: Anion Gap 15 (5-15); BUN 20 mg/dL (4-19); BUN/Creat Ratio 21.3 RATIO (10-20); Calcium,Total 9.3 mg/dL (7.6-11.0); Carbon Dioxide 22.4 mmol/L (21.0-32.0); Chloride 103 mmol/L (98-108); Estimated Creatinine Clearance 56.24 ml/min (50-250); Glucose 109 mg/dL (70-99); Potassium 3.8 mmol/L (3.3-5.1); Pro- Brain NATRIURETIC PEPTIDE 1033 pg/mL (<=1800)
[2024-12-29 14:12] LABS: Differential Indicated SCAN CRITERIA MET
[2024-12-29 14:21] LABS: Troponin T High Sensitivity 23 ng/L (<=14)
[2024-12-29 15:53] LABS: Troponin T High Sens 2 HR 23 ng/L (<=14)
--- NOTE | 2024-12-29 16:31 | HP.PCM.HOS_ITS ---
HPI - General General Date of Admission: 12/29/24 Date of Service: 12/29/24 Chief Complaint: Progressive worsening of shortness of breath for about 2 weeks HPI Narrative MICHAEL MEIER, is a 84 F with multiple comorbidities and chronic shortness of breath, pulmonary hypertension follows business taxes specialist Dr. Owen Alcala was sent to patient ED for shortness of breath, increased swelling. She also had numbness in tingling in left lower leg. Patient is stated Droxy really has not been feeling its right heart cath for evaluation of pulmonary hypertension and its medication but that will be the elective procedure. In ED, she was found to have short of breath and patient states that for last 2 weeks she gets short of breath even with ADLs/minor activities. She has gained about 8 to 9 pounds in last 3 to 4 days along with leg swelling and abdominal distention. She was evaluated by ED documentation not addressed in the H&P have been ruled out, unless otherwise noted/mentioned. On 12/23 for similar symptoms and was sent home treatment. She denies chest pain pressure or tightness. In the ED, her assessment was more consistent with CHF exacerbation therefore furosemide 40 mg IV was given. 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 of amiodarone Right carotid bruit Pulmonary hypertension GI bleed (2018) Essential (primary) hypertension Osteoarthritis Anxiety Daytime somnolence Dysmetabolic syndrome X Allergic rhinitis Malignant melanoma of skin of trunk, except scrotum Hyperlipidemia FH: sudden cardiac (SCD) Depression Paroxysmal atrial fibrillation Sick sinus syndrome Carotid artery disease Home Medications ?Medication ?Instructions ?Recorded ?Last Taken ?Type aspirin 81 mg tablet,delayed 81 mg PO QDAY heart healt h #90 tabs 12/27/18 12/03/24 Rx release (Adult Low Dose Aspirin) coenzyme Q10 100 mg capsule (Co 100 mg PO DAILY supple ment 01/23/20 Unknown History Q-10) rosuvastatin 10 mg tablet 10 mg PO DAILY cholesterol 0 01/23/20 Unknown History sucralfate 100 mg/mL oral 10 ml PO TID PRN digestion 0 11/25/21 Unknown History suspension cyclosporine 0.05 % eye drops in a 1 drp EACH EYE Q12H eye health 09/27/23 12/03/24 History dropperette (Restasis) albuterol sulfate 90 mcg/actuation 2 puff inhalation Q 6H PRN 10/02/23 Unknown Rx aerosol inhaler (ProAir HFA) shortness of breath or wh eezing #6.7 grams levothyroxine 50 mcg capsule 50 mcg PO QDAY Thyroid 12/03/24 History fluticasone propionate 110 1 inh inhalation Q12H SOB/W heezing 04/30/24 12/03/24 History mcg/actuation HFA aerosol inhaler vitamin B complex (Balanced B-50 1 tab PO DAILY supple ment 04/30/24 Unknown History tablet) diltiazem HCl 240 mg 240 mg PO QHS heart #90 caps 05/15/24 12/02/24 Rx capsule,extended release 24 hr amiodarone 200 mg tablet 200 mg PO DAILY heart #90 ta bs 07/20/24 Unknown Rx losartan 100 mg tablet 100 mg PO DAILY blood pressu re #90 09/11/24 12/03/24 Rx tabs azelastine 0.05 % eye drops 1 drp ophthalmic (eye) BID PRN eye 11/02/24 Unknown History drops omeprazole 20 mg capsule,delayed 20 mg PO QDAY GERD Unknown History release acetaminophen 500 mg tablet 1,000 mg (2 x 500 mg) PO Q 6H PRN 12/13/24 Unknown Rx PRN Pain 1-10 Or Fever #90 tabs gabapentin 100 mg capsule 100 mg PO QHS #30 caps 12/13 Unknown Rx hydralazine 25 mg tablet 25 mg PO TID #90 tabs Unknown Rx hydralazine 50 mg tablet 75 mg (1.5 x 50 mg) PO TID # 90 tabs 12/13/24 Unknown Rx lidocaine 5 % topical patch 1 patch topical DAILY #30 ea 12/13/24 Unknown Rx meloxicam 15 mg tablet 15 mg PO DAILY Joint pain #1 TAB 12/13/24 Unknown Rx sertraline 25 mg tablet See Rx Instructions .Route 0 12/13/24 Unknown Rx .COMPLEX #42 tabs sodium chloride 1,000 mg soluble 1,000 mg PO QDAY #60 tabs 12/27/24 Unknown Rx tablet spironolactone 25 mg tablet 25 mg PO DAILY fluid reten tion #30 12/27/24 Unknown Rx tabs Allergy/AdvReac Type Severity Reaction Status Date / Time ciprofloxacin (From Cipro) Allergy Rash Verified 12/29/24 13:12 Penicillins (PCN) Allergy Hives Verified 12/29/24 13:12 Sulfa (Sulfonamide Allergy Hives Verified 12/29/24 13:12 Antibiotics) Beta-Blockers AdvReac Other Verified 12/29/24 13:12 (Beta-Adrenergic Bloc hydrocodone (From Vicodin) AdvReac Other Verified 12/29/24 13:12 lisinopril AdvReac cough Verified 12/29/24 13:12 meperidine (From Demerol) AdvReac Vomiting Verified 12/29/24 13:12 morphine AdvReac Other Verified 12/29/24 13:12 pravastatin AdvReac Other Verified 12/29/24 13:12 Family History Grandfather Myocardial infarction Sudden cardiac Father Myocardial infarction CAD (coronary artery disease) CHF (congestive heart failure) Mother Myocardial infarction CAD (coronary artery disease) A-fib Brother A-fib CHF (congestive heart failure) Brother Cancer Son Diabetes Son Hypertension Surgical History History of permanent cardiac pacemaker placement (06/09/21) History of esophagogastroduodenoscopy (EGD) (09/07/18) History of left heart catheterization (LHC) (05/2011) 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) History of total right knee replacement (TKR) (~08/2011) History of right hip replacement (~2003) History of cholecystectomy History of total left knee replacement (TKR) Social History household members: none housing: house Smoking Status: Never smoker alcohol intake: never substance use type: does not use caffeine: Yes what type of physical activity do you participate in: none seatbelt use: always ROS ROS Narrative Constitutional: Reports acute chronic fatigue and weakness. Gain of weight. No fever. HEENT: Reports systems reviewed and no addt'l complaints, except as documented Respiratory/Chest: As described in HPI. Never been a smoker CVS: Denies chest pain pressure or tightness. Leg swelling Gastrointestinal: Denies coffee ground emesis, hematemesis or vomiting Genitourinary: Denies burning urination or new urinary tract symptoms Musculoskeletal: Denies acute joint pain or limited range of motion. No acute injury Neurologic: Denies seizure-like symptoms. skin: No ulcer. No rash Endocrinology: Reports systems reviewed and no addt'l complaints, except as documented Hematologic/Lymphatic: Reports systems reviewed and no addt'l complaints, except as documented Rest 14 ROS are negative except as mentioned in HPI Vital Signs Vital Signs Vital Signs: 12/29/24 13:13 12/29/24 13:18 12/29/24 15:12 Temperature 98.7 F 98.6 F Temperature Source Oral Temporal Pulse Rate 60 67 Respiratory Rate 20 H 18 Respiratory Effort Short of Breath Respiratory Depth Shallow Respiratory Pattern Tachypnea Blood Pressure 170/78 H 171/78 H Blood Pressure Mean 108 109 Pulse Ox 100 95 Oxygen Delivery Method Room Air Room Air Room Air 12/29/24 16:17 Temperature 97.7 F L Temperature Source Pulse Rate 60 Respiratory Rate 20 H Respiratory Effort Respiratory Depth Respiratory Pattern Blood Pressure 173/66 H Blood Pressure Mean 101 Pulse Ox 93 Oxygen Delivery Method Weight Weight: 253 lb 12.033 oz Body Mass Index (BMI) 42.2 Physical Exam Narrative General: Alert, Oriented x3, Cooperative. BMI 42.2 kg/m? HEENT: Atraumatic, PERRLA, EOMI, Normocephalic. Oral: Deep oropharyngeal structures could not be visualized Neck: Supple, No JVD, Negative Carotid Bruits Chest wall/Lungs: Air entry diminished in bilateral lung bases. No crepitations/wheezing. Dyspnea at rest. Cardiovascular: Regular rate and rhythm, Normal S1,S2, left subclavicular pacemaker. No murmur/gallop. Abdomen: Bowel Sounds Present, Soft, Non Tender, Non-Distended : No dysuria. No renal angle tenderness. No suprapubic tenderness. Extremities: Bilateral below-knee pedal edema, pitting, Capillary Refill Less than 3 Seconds Skin: No rashes, No breakdown Musculoskeletal: No Tenderness to Palpation of Joints or Extremities Neurological: Cranial nerves II-XII grossly intact, DTR 2+/4. No acute focal neurological deficit. Psych/Mental Status: Flat affect Results Lab / Micro Data 12/29/24 13:18 12/29/24 13:18 Labs: Laboratory Results - last 24 hr 12/29/24 13:18: WBC 9.4, RBC 3.37 L, Hgb 10.3 L, Hct 31.5 L, MCV 93.5, MCH 30.6, MCHC 32.7, RDW Std Deviation 53.2 H, RDW Coeff of Chandu 15.6 H, Plt Count , MPV 12.0, Immature Gran % (Auto) 0.900, Neut % (Auto) 75.3 H, Lymph % (Auto) 12.6 L, [place] % (Auto) 9.2, Eos % (Auto) 1.4, Baso % (Auto) 0.6, Absolute Neuts (auto) 7.0, Absolute Lymphs (auto) 1.18, Nucleated RBC % 0, Platelet Estimate ADEQUATE, Sodium 140, Potassium 3.8, Chloride 103, Carbon Dioxide 22.4, Anion Gap 15, BUN 20 H, Creatinine 0.96, Estim Creat Clear Calc 56.24, Est GFR (MDRD) Non-Af 59 L, BUN/Creatinine Ratio 21.3 H, Glucose 109 H, Calcium 9.3, Troponin T High Sens 23 H, NT pro BNP II 1033 12/29/24 15:31: Troponin T Hi Sens 2 Hr 23 H Imaging Radiology Impression Chest X-Ray 12/29/24 13:40 IMPRESSION: Borderline cardiomegaly. Vascular congestion and CHF. Blunting of both costophrenic angles worse on the right side. Reading Location: [id number] Assessment & Plan Assessment/Plan (1) Acute exacerbation of CHF (congestive heart failure): QUALIFIERS: Heart failure type: diastolic Qualified Code(s): I 50.33 - Acute on chronic diastolic (congestive) heart failure PLAN: Plan This is a 84-year-old female being admitted for acute on chronic worsening of shortness of breath, dyspnea at rest and hypoxia on ambulation 1. Acute on chronic HFpEF, moderate pulmonary hypertension: Patient is being admitted in PCU. Chest x-ray daily reviewed and shows bilateral vascular congestion, right mild pleural effusion. Borderline cardiomegaly. Twelve-lead EKG atrial paced rhythm 60 bpm. QTc 436 ms. Started on furosemide 40 mg IV twice daily. Heart failure core measures including intake and output, fluid restriction less than 1500 mL, daily weight monitoring, kidney and electrolytes monitoring. 2D echo recently shows EF 60%, moderate pulmonary hypertension, normal RV size and systolic function. No RWMA. Troponin flat and independent and similar; 23 at 0 and 2 hours. Third troponin ordered 2. Moderate pulmonary hypertension, paroxysmal A-fib not on anticoagulation, chronic sick sinus syndrome status post permanent placement: Dr. Sarmiento advised right heart cath which I told the patient that it will be done as an outpatient procedure. She was recently seen by Anabel Horne in office. CHADS2 score is elevated but not candidate for anticoagulant due to GI bleed history. On low-dose baby aspirin. Continue amiodarone 200 mg daily 3. Hypertensive urgency: BP was high in ED, systolic more than 170. On hydralazine 75 mg 3 times daily, losartan 100 mg daily and diltiazem ER 240 mg daily. IV hydralazine ordered as needed for SBP more than 180 mmHg. Patient also on IV Lasix as mentioned above 4. Left leg numbness: Patient was last admitted in first week of December 2024 for leg tremors and hypertensive urgency. Acute stroke was ruled out she had carotid Doppler in July 2024 which shows less than 50% stenosis bilaterally. PT and OT ordered. Symptoms probably due to bilateral leg edema 5. Chronic degenerative arthritis, bilateral TKR and decreased functional capacity: PT and OT ordered. During previous admission she was discharged to inpatient rehab 6. DVT prophylaxis, high risk but also high risk of bleeding/GI bleed: Heparin 5000 units subcutaneous twice daily. Discontinue if platelet count drops less than 50,000 or hemoglobin less than 8 g%. Bilateral Madi wrap bandage Living will/advanced directive/end of life care: Patient does have living will or advanced directive. Her daughter is power of criminal attorney for health after discussion of benefits/risks procedures involved with full code, DNR CC arrest and DNR CC, the patient is very clear that when her time comes she wants to go and does not want to be kept alive on artificial mechanism/ventilator Patient doesn't want artificial life support including intubation, tube feed, ventilator and/chest compression, central venous catheter, vasopressor and DC shock if needed Total time spent in [id number] encounter in discussion of advanced directive 17 minutes. Laboratory Results 12/29/24 13:18: WBC 9.4, RBC 3.37 L, Hgb 10.3 L, Hct 31.5 L, MCV 93.5, MCH 30.6, MCHC 32.7, RDW Std Deviation 53.2 H, RDW Coeff of Chandu 15.6 H, Plt Count , MPV 12.0, Immature Gran % (Auto) 0.900, Neut % (Auto) 75.3 H, Lymph % (Auto) 12.6 L, Henry % (Auto) 9.2, Eos % (Auto) 1.4, Baso % (Auto) 0.6, Absolute Neuts (auto) 7.0, Absolute Lymphs (auto) 1.18, Nucleated RBC % 0, Platelet Estimate ADEQUATE, Sodium 140, Potassium 3.8, Chloride 103, Carbon Dioxide 22.4, Anion Gap 15, BUN 20 H, Creatinine 0.96, Estim Creat Clear Calc 56.24, Est GFR (MDRD) Non-Af 59 L, BUN/Creatinine Ratio 21.3 H, Glucose 109 H, Calcium 9.3, Troponin T High Sens 23 H, NT pro BNP II 1033 12/29/24 15:31: Troponin T Hi Sens 2 Hr 23 H Echo 11/30/2019 Interpretation Summary Normal LV size. Left ventricular systolic function is normal. Moderate concentric left ventricular hypertrophy. The left ventricular ejection fraction is 60 %. Pulmonary artery systolic pressure is 65 mmHg. Moderate pulmonary hypertension. Charges/Coding Visit Charges Inpatient E&M: 56910 Init Hosp L3 Procedures Hospitalists Procedures: 59925 Advncd Care Plan 30 Min
[2024-12-29 18:39] LABS: Magnesium 2.3 mg/dL (1.5-2.2)
[2024-12-29] MEDS: Budesonide Respules 0.5 MG/2 ML AMPUL.NEB. INHALATION (19:00)
[2024-12-29] MEDS: Glycerin/Hypromellose/PEG400 15 ml Bottle 1 DRP EACH EYE (19:04)
[2024-12-29 20:38] LABS: Troponin T High Sens 4 HR 25 ng/L (<=14)
[2024-12-29] MEDS: Heparin Injection (Vial) 5,000 UNIT/ML VIAL 5000 UNIT SC (21:13)
[2024-12-30] VITALS (11 sets, daily range): BP systolic 129–147; BP diastolic 48–59; PULSE 60–68; RESP 16–18; TEMP 36.1–36.9; O2SAT 93–99; BMI 40.5
[2024-12-30 04:01] LABS: Hematocrit 28.6 % (37-47); Hemoglobin 8.5 g/dL (12.0-15.0); Immature Granulocytes Count 0.040 X10^3/uL (0.0-0.0); Mean Corp Hgb Conc 29.7 g/dL (32-36); Mean Corpuscular Volume 102.5 fL (81-99); Mean Platelet Vol. 11.1 fl (6.2-12.0); NRBC Flagged by Analyzer 0 % (0-5); Platelet Count 201 K/mm3 (150-450); RBC Distribution Width CV 15.6 % (11.6-14.6); RBC Distribution Width SD 59.0 fl (35.1-43.9); Red Blood Count 2.79 M/mm3 (4.2-5.4); White Blood Count 7.8 K/mm3 (4.4-11.0)
[2024-12-30 04:57] LABS: Cholesterol 109 mg/dL (<=200); Low Density Lipoprotein Calc. 36 mg/dL; Triglycerides 85 mg/dL; Very Low Density Lipoprotein 17 mg/dL (5-40); cholesterol:hdl ratio screen 1.96
[2024-12-30 05:04] LABS: Anion Gap 12 (5-15); BUN 21 mg/dL (4-19); BUN/Creat Ratio 19.8 RATIO (10-20); Calcium,Total 8.4 mg/dL (7.6-11.0); Carbon Dioxide 21.9 mmol/L (21.0-32.0); Chloride 105 mmol/L (98-108); Estimated Creatinine Clearance 50.09 ml/min (50-250); Glucose 97 mg/dL (70-99); Potassium 3.6 mmol/L (3.3-5.1)
[2024-12-30] MEDS: Glycerin/Hypromellose/PEG400 15 ml Bottle 1 DRP EACH EYE ×2 (05:17→18:22)
[2024-12-30] MEDS: Budesonide Respules 0.5 MG/2 ML AMPUL.NEB. INHALATION ×2 (07:20→20:00)
[2024-12-30] MEDS: Aspirin E.C. 81 MG Tablet PO (11:17)
[2024-12-30] MEDS: Heparin Injection (Vial) 5,000 UNIT/ML VIAL 5000 UNIT SC ×2 (11:20→21:48)
[2024-12-30] MEDS: Vitamin B Comp W-C Capsule 1 CAP PO (11:27)
--- NOTE | 2024-12-30 11:35 | PN.HOSP_ITS ---
Subjective Subjective Respiratory status remains about the same, she does not wear oxygen at home. Objective Data Objective Data Vital Signs: Vital Signs Temp Pulse Resp BP Pulse Ox O2 Del Method O2 Flow Rate 97.8 F 60 16 137/56 H 99 Nasal Cannula 3 12/30/24 11:06 12/30/24 11:06 12/30/24 11:06 12/30/24 11:06 12/30/24 11:06 12/30/24 11:06 12/30/24 11:06 Oxygen Flow Rate (L/min) 3 Oxygen Delivery Method Nasal Cannula Weight: 243 lb 6.245 oz Body Mass Index (BMI) 40.5 Intake & Output: Intake and Output for Last 24 Hours 12/29/24 12/30/24 12/31/24 03:59 03:59 03:59 Intake Total 360 / 360 Output Total 650 / 650 200 / 200 Balance -290 / -290 -200 / -200 Lab / Micro Data 12/30/24 03:30 12/30/24 03:30 Labs: Laboratory Results - last 24 hr 12/29/24 13:18: WBC 9.4, RBC 3.37 L, Hgb 10.3 L, Hct 31.5 L, MCV 93.5, MCH 30.6, MCHC 32.7, RDW Std Deviation 53.2 H, RDW Coeff of Chandu 15.6 H, Plt Count , MPV 12.0, Immature Gran % (Auto) 0.900, Neut % (Auto) 75.3 H, Lymph % (Auto) 12.6 L, [place] % (Auto) 9.2, Eos % (Auto) 1.4, Baso % (Auto) 0.6, Absolute Neuts (auto) 7.0, Absolute Lymphs (auto) 1.18, Nucleated RBC % 0, Platelet Estimate ADEQUATE, Sodium 140, Potassium 3.8, Chloride 103, Carbon Dioxide 22.4, Anion Gap 15, BUN 20 H, Creatinine 0.96, Estim Creat Clear Calc 56.24, Est GFR (MDRD) Non-Af 59 L, BUN/Creatinine Ratio 21.3 H, Glucose 109 H, Calcium 9.3, Troponin T High Sens 23 H, NT pro BNP II 1033 12/29/24 15:31: Magnesium 2.3 H, Troponin T Hi Sens 2 Hr 23 H 12/29/24 19:27: Troponin T Hi Sens 4Hr 25 H 12/30/24 03:30: WBC 7.8, RBC 2.79 L, Hgb 8.5 L, Hct 28.6 L, MCV 102.5 H D, MCH 30.5, MCHC 29.7 L D, RDW Std Deviation 59.0 H, RDW Coeff of Chandu 15.6 H, Plt Count 201, MPV 11.1, Immature Gran % (Auto) 0.500, Neut % (Auto) 67.6, Lymph % (Auto) 14.2 L, [place] % (Auto) 13.8 H, Eos % (Auto) 2.6, Baso % (Auto) 1.3 H, Absolute Neuts (auto) 5.3, Absolute Lymphs (auto) 1.11, Nucleated RBC % 0, Sodium 139, Potassium 3.6, Chloride 105, Carbon Dioxide 21.9, Anion Gap 12, BUN 21 H, Creatinine 1.05, Estim Creat Clear Calc 50.09, Est GFR (MDRD) Non-Af 53 L, BUN/Creatinine Ratio 19.8, Glucose 97, Calcium 8.4, Phosphorus 4.0, Triglycerides 85, Cholesterol 109, LDL Cholesterol, Calc 36, VLDL Cholesterol 17, HDL Cholesterol 56, Cholesterol/HDL Ratio 1.96, TSH 3.700 Radiography Diagnostic Testing: Radiology Impression Chest X-Ray 12/29/24 13:40 IMPRESSION: Borderline cardiomegaly. Vascular congestion and CHF. Blunting of both costophrenic angles worse on the right side. Reading Location: [facility] Physical Exam Narrative General: Alert, Oriented x3, Cooperative, No apparent distress HEENT: Atraumatic, PERRLA, EOMI, Normocephalic Oral: Moist Mucosa Neck: Supple, No JVD Lungs: Diminished, Normal air movement, bibasilar crackles, No wheeze, No rales Cardiovascular: Regular rate, Regular Rhythm, Normal S1, Normal S2, No murmurs Abdomen: Soft, Non Tender, Non-Distended, No Hepato-splenomegaly Extremities: Edema, Capillary Refill Less than 3 Seconds Skin: No rashes, No breakdown Musculoskeletal: No Tenderness to Palpation of Joints or Extremities Neurological: No focal neurological deficits, Motor Exam 5/5 strength throughout, Sensory exam intact to light touch and pain Psych/Mental Status: Normal Affect, Appropriate Assessment & Plan Assessment/Plan (1) Acute exacerbation of CHF (congestive heart failure): QUALIFIERS: Heart failure type: diastolic Qualified Code(s): I 50.33 - Acute on chronic diastolic (congestive) heart failure PLAN: Plan 1. Acute hypoxic respiratory insufficiency secondary to acute on chronic diastolic CHF with moderate pulmonary hypertension ? Continue with Lasix ? Echo from 11/29/2024 with an EF of 60% and a PASP of 65 mmHg with moderate left ventricular hypertrophy ? No need to repeat echocardiogram 2. Paroxysmal A-fib/essential HTN/HLD ? Resume her home blood pressure medications we will monitor make adjustments as necessary ? Continue with amiodarone and Aldactone ? She is not on anticoagulant candidate secondary to GI bleed history ? Continue with low-dose aspirin ? Continue with Lipitor 3. Hypothyroidism ? Stable ? Continue Synthroid 4. GERD with a history of GI bleed ? Stable ? Continue with PPI 5. Anxiety/depression ? Stable ? Continue with Zoloft DVT: Heparin Charges/Coding Visit Charges Inpatient E&M: 39608 Subs Hosp L2
--- NOTE | 2024-12-30 13:42 | CASEMGMT ---
SW Assessment SW?to room to meet with patient for initial transition planning/care coordination?assessment.?SW?introduced self and role at [facility].? Pt friend Ludivina present in room; pt agreeable to friend staying. Pt voices understanding and consents to?assessment.?Care providers, pharmacy, and demographics verified. PCP: Karen Johnson Specialists: Dr Hickey- cardiology, Dr Alcala- pulmonology Preferred Pharmacy: [facility] Insurance: [facility] Prescription Benefit:?yes Living Will/HPOA:?Yumiko, daughter, primary agent. Son, Tacho, alternate agent. HCPOA and Living Will on chart LNOK:Yumiko- dtr and son- Tacho Living Arrangements: Alone in a mobile home with a ramped entrance. Pt reports independence with all ADL but cleaning. Pt reports that her friend, Ludivina assists randomly with household tasks as well. Pt reports that she has a cleaning lady once per week and currently has [facility] HHC and will transition to [facility] at discharge of HHC. Transportation:?Self DME: Rollator, grab bars, tub bench HHC/SNF: [facility] HHC PLAN: Discharge home with resumption of HHC. Pt reports that she typically does not go far with home distances and feels comfortable going home once less short of breath. Pt reports that she does not have oxygen currently, but has used [employer] in the past for oxygen and would have them be the preferred provider if oxygen is needed at discharge. [facility] H[facility] updated. Green sheet on chart. KAYLEN Medina
--- NOTE | 2024-12-30 14:28 | CASEMGMT ---
TC to [facility] H[facility], left vm that pt was admitted to [facility]. TREVON order entered should pt be able to dc home. Green sheet on chart for HH and oxygen if needed.
[2024-12-30] MEDS: 0.9% Saline Lock 10 ML Syringe IV (18:27)
[2024-12-31] VITALS (14 sets, daily range): BP systolic 110–147; BP diastolic 49–89; PULSE 59–60; RESP 16–18; TEMP 36.1–36.9; O2SAT 91–97; BMI 40.8
[2024-12-31 05:25] LABS: Hematocrit 27.4 % (37-47); Hemoglobin 9.2 g/dL (12.0-15.0); Immature Granulocytes Count 0.030 X10^3/uL (0.0-0.0); Mean Corp Hgb Conc 33.6 g/dL (32-36); Mean Corpuscular Volume 93.2 fL (81-99); Mean Platelet Vol. 10.5 fl (6.2-12.0); NRBC Flagged by Analyzer 0 % (0-5); Platelet Count 234 K/mm3 (150-450); RBC Distribution Width CV 15.4 % (11.6-14.6); RBC Distribution Width SD 52.3 fl (35.1-43.9); Red Blood Count 2.94 M/mm3 (4.2-5.4); White Blood Count 7.7 K/mm3 (4.4-11.0)
[2024-12-31] MEDS: Glycerin/Hypromellose/PEG400 15 ml Bottle 1 DRP EACH EYE ×2 (05:44→18:10)
[2024-12-31 05:53] LABS: BUN 21 mg/dL (4-19); BUN/Creat Ratio 19.2 RATIO (10-20); Calcium,Total 8.7 mg/dL (7.6-11.0); Chloride 103 mmol/L (98-108); Estimated Creatinine Clearance 47.50 ml/min (50-250); Glucose 105 mg/dL (70-99); Potassium 3.2 mmol/L (3.3-5.1)
[2024-12-31 05:54] LABS: Anion Gap 13 (5-15); Carbon Dioxide 26.7 mmol/L (21.0-32.0)
[2024-12-31] MEDS: Budesonide Respules 0.5 MG/2 ML AMPUL.NEB. INHALATION ×2 (07:34→19:30)
[2024-12-31] MEDS: Vitamin B Comp W-C Capsule 1 CAP PO (08:53)
[2024-12-31] MEDS: Aspirin E.C. 81 MG Tablet PO (08:53)
[2024-12-31] MEDS: Heparin Injection (Vial) 5,000 UNIT/ML VIAL 5000 UNIT SC ×2 (08:53→20:43)
[2024-12-31] MEDS: 0.9% Saline Lock 10 ML Syringe IV ×2 (08:54→18:14)
[2024-12-31] MEDS: Potassium Chloride Oral Tablet 20 MEQ 40 MEQ PO (10:32)
--- NOTE | 2024-12-31 13:30 | PN.HOSP_ITS ---
Subjective Subjective Doing well, no issues overnight. She does not need oxygen at rest or wtih ambulation Objective Data Objective Data Vital Signs: Vital Signs Temp Pulse Resp BP Pulse Ox O2 Del Method O2 Flow Rate 97.0 F L 60 18 133/49 H 92 Room Air 2 12/31/24 08:36 12/31/24 08:36 12/31/24 09:10 12/31/24 08:36 12/31/24 09:10 12/31/24 09:10 12/31/24 09:00 Oxygen Flow Rate (L/min) 2 Oxygen Delivery Method Room Air Weight: 245 lb 2.464 oz Body Mass Index (BMI) 40.8 Intake & Output: Intake and Output for Last 24 Hours 12/30/24 12/31/24 01/01/25 03:59 03:59 03:59 Intake Total 360 / 360 1120 / 1120 200 / 200 Output Total 650 / 650 2200 / 2200 1450 / 1450 Balance -290 / -290 -1080 / -1080 -1250 / -1250 Lab / Micro Data 12/31/24 04:55 12/31/24 04:55 Labs: Laboratory Results - last 24 hr 12/31/24 04:55: WBC 7.7, RBC 2.94 L, Hgb 9.2 L, Hct 27.4 L, MCV 93.2 D, MCH 31.3, MCHC 33.6 D, RDW Std Deviation 52.3 H, RDW Coeff of Chandu 15.4 H, Plt Count 234, MPV 10.5, Immature Gran % (Auto) 0.400, Neut % (Auto) 67.2, Lymph % (Auto) 16.5 L, [place] % (Auto) 12.4 H, Eos % (Auto) 2.7, Baso % (Auto) 0.8, Absolute Neuts (auto) 5.1, Absolute Lymphs (auto) 1.26, Nucleated RBC % 0, Sodium 142, P otassium 3.2 L, Chloride 103, Carbon Dioxide 26.7, Anion Gap 13, BUN 21 H, Creatinine 1.11, Estim Creat Clear Calc 47.50 L, Est GFR (MDRD) Non-Af 49 L, BUN/Creatinine Ratio 19.2, Glucose 105 H, Calcium 8.7 Physical Exam Narrative General: Alert, Oriented x3, Cooperative, No apparent distress HEENT: Atraumatic, PERRLA, EOMI, Normocephalic Oral: Moist Mucosa Neck: Supple, No JVD Lungs: Diminished, Normal air movement, bibasilar crackles, No wheeze, No rales Cardiovascular: Regular rate, Regular Rhythm, Normal S1, Normal S2, No murmurs Abdomen: Soft, Non Tender, Non-Distended, No Hepato-splenomegaly Extremities: Trace edema, Capillary Refill Less than 3 Seconds Skin: No rashes, No breakdown Musculoskeletal: No Tenderness to Palpation of Joints or Extremities Neurological: No focal neurological deficits, Motor Exam 5/5 strength throughout, Sensory exam intact to light touch and pain Psych/Mental Status: Normal Affect, Appropriate Assessment & Plan Assessment/Plan (1) Acute exacerbation of CHF (congestive heart failure): QUALIFIERS: Heart failure type: diastolic Qualified Code(s): I 50.33 - Acute on chronic diastolic (congestive) heart failure PLAN: Plan 1. Acute hypoxic respiratory insufficiency secondary to acute on chronic diastolic CHF with moderate pulmonary hypertension ? Continue with Lasix ? Echo from 11/29/2024 with an EF of 60% and a PASP of 65 mmHg with moderate left ventricular hypertrophy ? No need to repeat echocardiogram ? Ambulatory pulse ox did not demonstrate a need for oxygen at rest or with ambulation however she lives alone and is afraid of going home today would like to try 1 more day with continued IV Lasix 2. Paroxysmal A-fib/essential HTN/HLD ? Resume her home blood pressure medications we will monitor make adjustments as necessary ? Continue with amiodarone and Aldactone ? She is not on anticoagulant candidate secondary to GI bleed history ? Continue with low-dose aspirin ? Continue with Lipitor 3. Hypothyroidism ? Stable ? Continue Synthroid 4. GERD with a history of GI bleed ? Stable ? Continue with PPI 5. Anxiety/depression ? Stable ? Continue with Zoloft DVT: Heparin Charges/Coding Visit Charges Inpatient E&M: 30168 Subs Hosp L2
[2025-01-01 02:40] VITALS: BP 128/59; PULSE 60; RESP 18; TEMP 36.7; O2SAT 93
[2025-01-01 05:29] VITALS: BP 140/54; PULSE 60
[2025-01-01] MEDS: Glycerin/Hypromellose/PEG400 15 ml Bottle 1 DRP EACH EYE (05:29)
[2025-01-01 05:37] VITALS: BMI 40.6
[2025-01-01 06:56] LABS: Anion Gap 13 (5-15); BUN 26 mg/dL (4-19); BUN/Creat Ratio 23.4 RATIO (10-20); Calcium,Total 9.0 mg/dL (7.6-11.0); Carbon Dioxide 26.9 mmol/L (21.0-32.0); Chloride 102 mmol/L (98-108); Estimated Creatinine Clearance 48.06 ml/min (50-250); Glucose 112 mg/dL (70-99); Potassium 3.7 mmol/L (3.3-5.1)
[2025-01-01 07:43] VITALS: PULSE 60; RESP 18; O2SAT 97
[2025-01-01] MEDS: Budesonide Respules 0.5 MG/2 ML AMPUL.NEB. INHALATION (07:43)
[2025-01-01 08:40] VITALS: BP 135/49; PULSE 60; RESP 18; TEMP 36.9; O2SAT 93
--- NOTE | 2025-01-01 09:04 | PCM.DC ---
Discharge Instructions DC O2, CPAP, BIPAP needs Home O2 Discharge instructions: No Dressing / Incision Discharge Activity: Return to Normal Activity Dressing / Incision Call your doctor if you observe: Fever of 101 or Higher, Shortness of breath, Dizziness, Fainting spells, Swelling in the ankles, Chest pain and Increased palpitations (irregular heartbeat) Follow Up Care Test Results: Test results from this visit will be discussed in further detail at your follow-up appointment, if applicable. Discharge Plan Admission Admit Date/Time: 12/29/24 16:24 Attending Provider: Jonny Vicente Primary Care Provider: Karen Johnson Consulting Providers: Len Nicolas Discharge Orders/Prescriptions Prescriptions: New furosemide [Lasix] 20 mg tablet 20 mg PO DAILY Qty: 30 0RF Continued aspirin [Adult Low Dose Aspirin] 81 mg tablet,delayed release (DR/EC) 81 mg PO QDAY Qty: 90 3RF rosuvastatin 10 mg tablet 10 mg PO QHS coenzyme Q10 [Co Q-10] 100 mg capsule 100 mg PO QHS sucralfate 100 mg/mL suspension 10 ml PO TID PRN (Reason: digestion) Patient Comments: TAKE 10 ML BY MOUTH 4 TIMES DAILY levothyroxine 50 mcg capsule 50 mcg PO QDAY omeprazole 20 mg capsule,delayed release(DR/EC) 20 mg PO BID sodium chloride 1,000 mg tablet,soluble 1,000 mg PO QDAY Qty: 60 0RF spironolactone 25 mg tablet 25 mg PO DAILY Qty: 30 11RF cyclosporine [Restasis] 0.05 % dropperette 1 drp EACH EYE Q12H meloxicam 15 mg tablet 15 mg PO DAILY PRN (Reason: Joint pain) Rx Instructions: Take this with food. lidocaine 5 % Adhesive Patch,Medicated 1 patch topical DAILY PRN (Reason: pain) Protocol: *Topical Application Instructions APPLICATION INSTRUCTIONS: left outer hip Rx Instructions: remove the patch 12 H after it is applied. vitamin B complex [Balanced B-50] Tablet 1 tab PO DAILY azelastine 0.05 % drops 1 drp ophthalmic (eye) BID PRN (Reason: eye drops) acetaminophen 500 mg Tablet 1,000 mg PO Q6H PRN PRN (Reason: Pain 1-10 Or Fever) Qty: 90 0RF hydralazine 50 mg Tablet 75 mg PO TID Qty: 90 0RF Rx Instructions: you will take 1 50 mg tablet and 1 25 mg tablet 3 times a day to equal 75 mg 3 times a day gabapentin 100 mg Capsule 100 mg PO QHS Qty: 30 0RF sertraline 25 mg tablet See Rx Instructions .ROUTE .COMPLEX Qty: 42 0RF Rx Instructions: take 2 tabs at bedtime for 2 weeks and then decrease to 1 tab at bedtime for 2 weeks then discontinue hydralazine 25 mg tablet 25 mg PO TID Qty: 90 0RF Rx Instructions: take 1 50 mg tab and 1 25 mg tab 3 times a day for a total of 75 mg 3 times a day. diltiazem HCl 240 mg capsule,extended release 24hr 240 mg PO QHS Qty: 90 3RF amiodarone 200 mg tablet 200 mg PO DAILY Qty: 90 3RF losartan 100 mg tablet 100 mg PO DAILY Qty: 90 3RF Referrals / Follow Up: Anabel Horne PA [Med Staff - [facility]] - Within 1 Month Karen Johnson, DATA SUPPORT SPECIALIST-C [Primary Care Provider] - Within 1 Week Disposition Disposition (needs filled in before D/C Order can be placed): Home, Self Care
[2025-01-01] MEDS: Aspirin E.C. 81 MG Tablet PO (09:23)
[2025-01-01] MEDS: Heparin Injection (Vial) 5,000 UNIT/ML VIAL 5000 UNIT SC (09:24)
--- NOTE | 2025-01-01 12:16 | DS.PCM_ITS ---
Providers Date of Admission: 12/29/24 Primary Care Physician: JACOBO Hernandez, MAINTENANCE SHOP CLERK-C Reason For Visit: CHF EXACERBATION Diagnosis Discharge Diagnosis (1) Acute exacerbation of CHF (congestive heart failure): Status: Chronic Code(s): I50.9 - Heart failure, unspecified Qualifiers: Heart failure type: diastolic Qualified Code(s): I50.33 - Acute on chronic diastolic (congestive) heart failure Medications at Discharge Home Medications aspirin 81 mg tablet,delayed release (Adult Low Dose Aspirin) 81 mg PO QDAY heart health #90 tabs 12/27/18 coenzyme Q10 100 mg capsule (Co Q-10) 100 mg PO QHS supplement 01/23/20 rosuvastatin 10 mg tablet 10 mg PO QHS cholesterol 01/23/20 sucralfate 100 mg/mL oral suspension 10 ml PO TID PRN digestion 11/25/21 cyclosporine 0.05 % eye drops in a dropperette (Restasis) 1 drp EACH EYE Q12H eye health 09/27/23 levothyroxine 50 mcg capsule 50 mcg PO QDAY Thyroid 01/25/24 vitamin B complex (Balanced B-50 tablet) 1 tab PO DAILY supplement 04/30/24 diltiazem HCl 240 mg capsule,extended release 24 hr 240 mg PO QHS heart #90 caps 05/15/24 amiodarone 200 mg tablet 200 mg PO DAILY heart #90 tabs 07/20/24 losartan 100 mg tablet 100 mg PO DAILY blood pressure #90 tabs 09/11/24 azelastine 0.05 % eye drops 1 drp ophthalmic (eye) BID PRN eye drops 11/02/24 omeprazole 20 mg capsule,delayed release 20 mg PO BID GERD 11/02/24 acetaminophen 500 mg tablet 1,000 mg (2 x 500 mg) PO Q6H PRN PRN Pain 1-10 Or Fever #90 tabs 12/13/24 gabapentin 100 mg capsule 100 mg PO QHS #30 caps 12/13/24 hydralazine 25 mg tablet 25 mg PO TID #90 tabs 12/13/24 hydralazine 50 mg tablet 75 mg (1.5 x 50 mg) PO TID #90 tabs 12/13/24 sertraline 25 mg tablet See Rx Instructions .Route .COMPLEX #42 tabs 12/13/24 sodium chloride 1,000 mg soluble tablet 1,000 mg PO QDAY #60 tabs 12/27/24 spironolactone 25 mg tablet 25 mg PO DAILY fluid retention #30 tabs 12/27/24 lidocaine 5 % topical patch 1 patch topical DAILY PRN pain 12/30/24 meloxicam 15 mg tablet 15 mg PO DAILY PRN Joint pain 12/30/24 furosemide 20 mg tablet (Lasix) 20 mg PO DAILY #30 tabs 01/01/25 Hospital Course Operations None Procedures None Summary of Care Provided Minutes Spent on Discharge: 35 Hospital Course: Per HPI: MICHAEL MEIER, is a 84 F with multiple comorbidities and chronic shortness of breath, pulmonary hypertension 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 Owne Alcala was sent to patient ED for shortness of breath, increased swelling. She also had numbness in tingling in left lower leg. Patient is stated Droxy really has not been feeling its right heart cath for evaluation of pulmonary hypertension and its medication but that will be the elective procedure. In ED, she was found to have short of breath and patient states that for last 2 weeks she gets short of breath even with ADLs/minor activities. She has gained about 8 to 9 pounds in last 3 to 4 days along with leg swelling and abdominal distention. She was evaluated by ED documentation not addressed in the H&P have been ruled out, unless otherwise noted/mentioned. On 12/23 for similar symptoms and was sent home treatment. She denies chest pain pressure or tightness. In the ED, her assessment was more consistent with CHF exacerbation therefore furosemide 40 mg IV was given. Her vitals shows BP high at 170/78, heart rate 60/min, pulse ox 100% on room air but she desaturated on ambulation therefore being admitted Hospital Course: 1. Acute hypoxic respiratory sufficiency secondary to acute on chronic diastolic CHF with moderate pulmonary hypertension?84-year-old female presented to the hospital with increasing shortness of breath. She was recently discharged from the rehab unit where her Lasix was discontinued due to concerns for hyponatremia. Her sodium is normal as she is being tapered off of her SSRI with concern for SIADH from the rehab unit. However she has had significant improvement and is off of oxygen with IV Lasix therefore elected to place her back on her p.o. Lasix dosing of 20 mg daily on discharge. She had an amatory pulse ox which did not demonstrate a need for any oxygen either at rest or with ambulation. Recommend that she follow-up with her PCP in 3 to 5 days as well as with cardiology for further monitoring. 2. Paroxysmal A-fib, essential hypertension, hyperlipidemia, hypothyroidism, GERD with a history of GI bleed, anxiety, depression are all chronic medical conditions which complicate her care. Her home medications were continued where appropriate. Physical Exam Narrative General: Alert, Oriented x3, Cooperative, No apparent distress HEENT: Atraumatic, PERRLA, EOMI, Normocephalic Oral: Moist Mucosa Neck: Supple, No JVD Lungs: Diminished, Normal air movement, bibasilar crackles, No wheeze, No rales Cardiovascular: Regular rate, Regular Rhythm, Normal S1, Normal S2, No murmurs Abdomen: Soft, Non Tender, Non-Distended, No Hepato-splenomegaly Extremities: Trace edema, Capillary Refill Less than 3 Seconds Skin: No rashes, No breakdown Musculoskeletal: No Tenderness to Palpation of Joints or Extremities Neurological: No focal neurological deficits, Motor Exam 5/5 strength throughout, Sensory exam intact to light touch and pain Psych/Mental Status: Normal Affect, Appropriate Weight / BMI Weight Weight: 244 lb 7.882 oz Body Mass Index (BMI) 40.6 ABG / Lab / Microbiology Data 12/31/24 04:55 01/01/25 05:37 Laboratory: Laboratory Results - last 24 hr 01/01/25 05:37: Sodium 141, Potassium 3.7, Chloride 102, Carbon Dioxide 26.9, Anion Gap 13, BUN 26 H, Creatinine 1.10, Estim Creat Clear Calc 48.06 L, Est GFR (MDRD) Non-Af 50 L, BUN/Creatinine Ratio 23.4 H, Glucose 112 H, Calcium 9.0 D/C Instructions Call your doctor if you observe: Fever of 101 or Higher, Shortness of breath, Dizziness, Fainting spells, Swelling in the ankles, Chest pain and Increased palpitations (irregular heartbeat) DC O2, CPAP, BIPAP Needs Home O2 Discharge instructions: No Meaningful Use Info Meaningful Use Meaningful Use Diagnoses (Choose all that apply): None applicable Discharge Plan Admission Admit Date/Time: 12/29/24 16:24 Attending Provider: Jonny Vicente Primary Care Provider: Karen Johnson Marilee Consulting Providers: Len Nicolas Discharge Orders/Prescriptions Prescriptions: New furosemide [Lasix] 20 mg tablet 20 mg PO DAILY Qty: 30 0RF Continued aspirin [Adult Low Dose Aspirin] 81 mg tablet,delayed release (DR/EC) 81 mg PO QDAY Qty: 90 3RF rosuvastatin 10 mg tablet 10 mg PO QHS coenzyme Q10 [Co Q-10] 100 mg capsule 100 mg PO QHS sucralfate 100 mg/mL suspension 10 ml PO TID PRN (Reason: digestion) Patient Comments: TAKE 10 ML BY MOUTH 4 TIMES DAILY levothyroxine 50 mcg capsule 50 mcg PO QDAY omeprazole 20 mg capsule,delayed release(DR/EC) 20 mg PO BID sodium chloride 1,000 mg tablet,soluble 1,000 mg PO QDAY Qty: 60 0RF spironolactone 25 mg tablet 25 mg PO DAILY Qty: 30 11RF cyclosporine [Restasis] 0.05 % dropperette 1 drp EACH EYE Q12H meloxicam 15 mg tablet 15 mg PO DAILY PRN (Reason: Joint pain) Rx Instructions: Take this with food. lidocaine 5 % Adhesive Patch,Medicated 1 patch topical DAILY PRN (Reason: pain) Protocol: *Topical Application Instructions APPLICATION INSTRUCTIONS: left outer hip Rx Instructions: remove the patch 12 H after it is applied. vitamin B complex [Balanced B-50] Tablet 1 tab PO DAILY azelastine 0.05 % drops 1 drp ophthalmic (eye) BID PRN (Reason: eye drops) acetaminophen 500 mg Tablet 1,000 mg PO Q6H PRN PRN (Reason: Pain 1-10 Or Fever) Qty: 90 0RF hydralazine 50 mg Tablet 75 mg PO TID Qty: 90 0RF Rx Instructions: you will take 1 50 mg tablet and 1 25 mg tablet 3 times a day to equal 75 mg 3 times a day gabapentin 100 mg Capsule 100 mg PO QHS Qty: 30 0RF sertraline 25 mg tablet See Rx Instructions .ROUTE .COMPLEX Qty: 42 0RF Rx Instructions: take 2 tabs at bedtime for 2 weeks and then decrease to 1 tab at bedtime for 2 weeks then discontinue hydralazine 25 mg tablet 25 mg PO TID Qty: 90 0RF Rx Instructions: take 1 50 mg tab and 1 25 mg tab 3 times a day for a total of 75 mg 3 times a day. diltiazem HCl 240 mg capsule,extended release 24hr 240 mg PO QHS Qty: 90 3RF amiodarone 200 mg tablet 200 mg PO DAILY Qty: 90 3RF losartan 100 mg tablet 100 mg PO DAILY Qty: 90 3RF Referrals / Follow Up: Anabel Horne PA [Med Staff - [facility]] - Within 1 Month Karen Johnson, MAINTENANCE SHOP CLERK-C [Primary Care Provider] - Within 1 Week Disposition Disposition (needs filled in before D/C Order can be placed): Home, Self Care Charges/Coding Visit Charges Inpatient E&M: 98749 Disch Hosp >30min
[2025-01-01 13:13] VITALS: BP 165/49; PULSE 62; RESP 18; TEMP 36.9; O2SAT 91
== END 2025-01-01 13:10 | disposition home health service (06) | DRG 291 ==
LOC: ED 16:27 → PCU 16:48
PROVIDERS: Physician Assistant; Admitting Provider Internal Medicine; Emergency Provider Student in an Organized Health Care Education/Training Program; PCP Nurse Practitioner Family; Visit Provider Family Medicine
DX: I11.0 Hypertensive heart disease with heart failure (principal); I50.33 Acute on chronic diastolic (congestive) heart failure; I16.0 Hypertensive urgency; Z66 Do not resuscitate; E03.9 Hypothyroidism, unspecified; I27.20 Pulmonary hypertension, unspecified; F32.A Depression, unspecified; I49.5 Sick sinus syndrome; I48.0 Paroxysmal atrial fibrillation; E78.5 Hyperlipidemia, unspecified; K21.9 Gastro-esophageal reflux disease without esophagitis; F41.9 Anxiety disorder, unspecified; R09.02 Hypoxemia; Z79.1 Long term (current) use of non-steroidal anti-inflammatories (NSAID); Z79.82 Long term (current) use of aspirin; Z79.890 Hormone replacement therapy; Z79.899 Other long term (current) drug therapy; Z95.0 Presence of cardiac pacemaker; Z96.653 Presence of artificial knee joint, bilateral
CPT/HCPCS: 36415; 71046; 80048; 80061; 83735; 83880; 84100; 84443; 84484; 85025; 93005; 94640; 94668; 97116; 97162; 97165; 97530; 99285; A4216; J1938

== ENCOUNTER → 2025-01-05 | Outpatient (CLI) | payer MEDICARE, OTHER, SELFPAY ==
[2025-01-05 14:08] LABS: Anion Gap 13 (5-15); BUN 25 mg/dL (4-19); BUN/Creat Ratio 19.4 RATIO (10-20); Calcium,Total 9.4 mg/dL (7.6-11.0); Carbon Dioxide 26.4 mmol/L (21.0-32.0); Chloride 100 mmol/L (98-108); Glucose 106 mg/dL (70-99); Potassium 3.9 mmol/L (3.3-5.1)
== END | disposition home or self-care (01) ==
LOC: LABSPEC 12:57
PROVIDERS: PCP Nurse Practitioner Family; Referring Provider Nurse Practitioner Family; Visit Provider Nurse Practitioner Family
DX: D64.9 Anemia, unspecified (principal)
CPT/HCPCS: 80048

== ENCOUNTER → 2025-01-23 | Outpatient (CLI) | payer MEDICARE, OTHER, SELFPAY ==
[2025-01-23 16:33] LABS: Hematocrit 37.7 % (37-47); Hemoglobin 12.5 g/dL (12.0-15.0); Immature Granulocytes Count 0.030 X10^3/uL (0.0-0.0); Mean Corp Hgb Conc 33.2 g/dL (32-36); Mean Corpuscular Volume 94.7 fL (81-99); NRBC Flagged by Analyzer 0 % (0-5); POSITIVE COUNT YES; RBC Distribution Width CV 14.6 % (11.6-14.6); Red Blood Count 3.98 M/mm3 (4.2-5.4); White Blood Count 9.6 K/mm3 (4.4-11.0)
[2025-01-23 17:08] LABS: Vitamin B12 1144 pg/mL (180-914)
[2025-01-23 17:58] LABS: Iron 105 ug/dL (50-170); Iron Binding Capacity,Total 402 ug/dL (250-450); Iron Binding Capacity,Unsat 297 ug/dL (228-428)
[2025-01-23 17:59] LABS: Anion Gap 16 (5-15); BUN 44 mg/dL (4-19); BUN/Creat Ratio 34.1 RATIO (10-20); Calcium,Total 9.5 mg/dL (7.6-11.0); Carbon Dioxide 21.4 mmol/L (21.0-32.0); Chloride 100 mmol/L (98-108); Glucose 83 mg/dL (70-99); Potassium 4.5 mmol/L (3.3-5.1)
[2025-01-23 19:04] LABS: Differential Indicated SCAN CRITERIA MET; RBC Distribution Width SD 51.6 fl (35.1-43.9)
[2025-01-23 19:06] LABS: Differential Comment SCANNED
== END | disposition home or self-care (01) ==
LOC: VSLAB 11:14
PROVIDERS: PCP Nurse Practitioner Family; Visit Provider Nurse Practitioner Family
DX: E87.1 Hypo-osmolality and hyponatremia (principal); D64.9 Anemia, unspecified
CPT/HCPCS: 36415; 80048; 82607; 83540; 83550; 85025

== ENCOUNTER → 2025-02-05 | Outpatient (CLI) | payer MEDICARE, OTHER, SELFPAY ==
--- NOTE | 2025-02-05 15:05 | RAD_ITS ---
PROCEDURE: CHEST PA AND LATERAL 02/05/2025 REASON FOR EXAM: SOB TECHNIQUE: Procedure Code: RADCXR Modality: DX Procedure: CHEST PA AND LATERAL COMPARISON: Two-view chest, 12/29/2024. FINDINGS: There is interval clearing of the bilateral pleural effusions. The lungs are clear. The heart size is normal. There is calcific vascular disease of the thoracic aorta. There is a dual lead pacemaker. The upper abdominal bowel gas pattern is normal. 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 RAD/Chest PA and Lateral IMPRESSION: Interval clearing of bilateral pleural effusions. No evidence of acute cardiop ulmonary pathology. Reading Location: [id number]
[2025-02-05 15:46] LABS: Hematocrit 36.4 % (37-47); Hemoglobin 11.9 g/dL (12.0-15.0); Immature Granulocytes Count 0.020 X10^3/uL (0.0-0.0); Mean Corp Hgb Conc 32.7 g/dL (32-36); Mean Corpuscular Volume 91.9 fL (81-99); Mean Platelet Vol. 10.5 fl (6.2-12.0); NRBC Flagged by Analyzer 0 % (0-5); Platelet Count 216 K/mm3 (150-450); RBC Distribution Width CV 14.1 % (11.6-14.6); RBC Distribution Width SD 47.8 fl (35.1-43.9); Red Blood Count 3.96 M/mm3 (4.2-5.4); White Blood Count 7.9 K/mm3 (4.4-11.0)
[2025-02-05 16:21] LABS: Anion Gap 13 (5-15); BUN 34 mg/dL (4-19); BUN/Creat Ratio 31.6 RATIO (10-20); Calcium,Total 9.5 mg/dL (7.6-11.0); Carbon Dioxide 25.1 mmol/L (21.0-32.0); Chloride 100 mmol/L (98-108); Glucose 108 mg/dL (70-99); Potassium 4.3 mmol/L (3.3-5.1); Pro- Brain NATRIURETIC PEPTIDE 310 pg/mL (<=1800)
== END | disposition home or self-care (01) ==
LOC: RAD 15:03
PROVIDERS: PCP Nurse Practitioner Family; Referring Provider Nurse Practitioner Gerontology; Visit Provider Nurse Practitioner Gerontology
DX: R06.02 Shortness of breath (principal); R53.83 Other fatigue
CPT/HCPCS: 36415; 71046; 80048; 83880; 84443; 85025

== ENCOUNTER → 2025-03-07 | Outpatient (CLI) | payer MEDICARE, OTHER, SELFPAY ==
[2025-03-07 17:09] LABS: Hematocrit 35.8 % (37-47); Hemoglobin 11.4 g/dL (12.0-15.0); Immature Granulocytes Count 0.030 X10^3/uL (0.0-0.0); Mean Corp Hgb Conc 31.8 g/dL (32-36); Mean Corpuscular Volume 93.0 fL (81-99); Mean Platelet Vol. 11.6 fl (6.2-12.0); NRBC Flagged by Analyzer 0 % (0-5); Platelet Count 229 K/mm3 (150-450); RBC Distribution Width CV 14.6 % (11.6-14.6); RBC Distribution Width SD 50.1 fl (35.1-43.9); Red Blood Count 3.85 M/mm3 (4.2-5.4); White Blood Count 10.2 K/mm3 (4.4-11.0)
[2025-03-07 18:04] LABS: AST(SGOT) 28 U/L (<=31); Alanine Aminotransfer ALT/SGPT 33 U/L (<=34); Albumin, Serum 4.2 g/dL (3.4-4.8); Alkaline Phosphatase 73 U/L (35-104); Anion Gap 14 (5-15); BUN 29 mg/dL (4-19); BUN/Creat Ratio 25.1 RATIO (10-20); Calcium,Total 9.1 mg/dL (7.6-11.0); Carbon Dioxide 24.0 mmol/L (21.0-32.0); Chloride 100 mmol/L (98-108); Globulin 2.4 g/dL (2.2-4.2); Glucose 90 mg/dL (70-99); Potassium 4.7 mmol/L (3.3-5.1)
== END | disposition home or self-care (01) ==
LOC: VSLAB 15:08
PROVIDERS: PCP Nurse Practitioner Family; Referring Provider Nurse Practitioner Family; Visit Provider Nurse Practitioner Family
DX: E87.1 Hypo-osmolality and hyponatremia (principal)
CPT/HCPCS: 36415; 80053; 85025

== ENCOUNTER → 2025-03-20 | Outpatient (CLI) | payer MEDICARE, OTHER, SELFPAY ==
--- OUTSIDE RECORDS SUMMARY | 2025-03-20 06:11 | XMS RPT_ITS | CCD ---
Author Organization [facility] Care Team Providers Care Washtub Worker Helper Name Role Phone GLYNN Harris, Lisa Ennis Unavailable Unavailable GLYNN Harris, Lisa Ennis Unavailable Unavailable Shalini Montanez Unavailable Shalini Montanez Unavailable GLYNN Harris, Lisa Ennis Unavailable Unavailable Delisa Juárez RN Unavailable Unavailable Michael Puga Unavailable Kat Gleason Unavailable Unavailable Bernie Barajas Unavailable Unavailabl e [...] Taina SZYMANSKI, Dr. Herman Attending Provider Mick CENTRIFUGE 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, Isela Radu Unavailable Edd VELASCO, Dr. Rodriguez Primary Care Provider Anabel Alexander Attending Provider Anabel Alexander M Referring Provider Edelmira SZYMANSKI, Dr. Holder Attending Provider Dr. Michael Puga DO Primary Care Provider [phone] Anabel Alexander Attending Provider Anabel Alexander Referring Provider Dr. Michael Puga DO Referring Provider Dr. Michael Puga DO Primary Care Provider Anabel Alexander Attending Provider Anabel Alexander Referring Provider Edd VELASCO, Dr. Rodriguez Primary Care Provider [phone] Edelmira SZYMANSKI, Dr. Holder Attending Provider Edelmira SZYMANSKI, Dr. Holder Referring Provider Dr. Virgil Tyler DO Emergency Provider de Sacha DO, Dr. Titus Admit Provider Unavail able de Sacha DO, Dr. Titus Attending Provider Unav ailable de Sacha DO, Dr. Titus Other Provider Unavail able Alan SZYMANSKI, Dr. Galeano Attending Provider Jules SZYMANSKI, Dr. Jonny Salazar Other Provider Jules SZYMANSKI, Dr. Jonny Salazar Attending Provider Alan SZYMANSKI, Dr. Galeano Other Provider Raj SZYMANSKI, Dr. Tavares Hodges Admit Provider Raj SZYMANSKI, Dr. Tavares Hodges Other Provider Tammy VELASCO, Dr. Radha Mayen Attending Provide r Semenafrica VELASCO, Dr. Radha Mayen Other Provider Dr. Michael Puga DO Primary Care Provider Edelmira SZYMANSKI, Dr. Holder Attending Provider Edelmira SZYMANSKI, Dr. Holder Referring Provider Anabel Alexander Attending Provider Anabel Alexander Referring Provider Dr. Michael Puga DO Referring Provider Dr. Virgil Tyler DO Emergency Provider de Sacha DO, Dr. Titus Admit Provider Unavail able de Sacha DO, Dr. Titus Other Provider Unavail able Alan SZYMANSKI, Dr. Galeano Attending Provider Jules SZYMANSKI, Dr. Jonny Salazar Other Provider Jules SZYMANSKI, Dr. Jonny Salazar Attending Provider Alan SZYMANSKI, Dr. Galeano Other Provider Raj SZYMANSKI, Dr. Tavares Hodges Admit Provider Raj SZYMANSKI, Dr. Tavares Hodges Other Provider Tammy VELASCO, Dr. Radha Mayen Attending Provide r Semenafrcia DO, Dr. Radha Mayen Other Provider Alex APPLIQUE CUTTER-C, Karen Attending Provider Alex APPLIQUE CUTTER-C, Karen Referring Provider Kaleb SZYMANSKI, Arley Emergency Provider Alex APPLIQUE CUTTER-C, Karen Primary Care Provider Alex APPLIQUE CUTTER-C, Karen Attending Provider Alex APPLIQUE CUTTER-C, Karen Referring Provider Kaleb SZYMANSKI, Arley Emergency Provider Alex APPLIQUE CUTTER-C, Karen Primary Care Provider Kaleb SZYMANSKI, Arley Attending Provider Jose SZYMANSKI, Dr. Luna Emergency Provider Unavailab jose luis Nicolas MD, Dr. Harrington Admit Provider Fidencio SZYMANSKI, Dr. Harrington Attending Provider Fidencio SZYMANSKI, Dr. Harrington Other Provider Fidencio SZYMANSKI, Dr. Harrington Attending Provider Dr. Michael Puga DO Primary Care Physician Edelmira SZYMANSKI, Dr. Holder Attending Physician Anabel Alexander Attending Physician Dr. Virgil Tyler DO Emergency Department Physi malinda Dr. Tacho Davis DO Admitting Physician Patricia vailable Davis DO, Dr. Titus Nurse Practitioner Unav ailable Alan SZYMANSKI, Dr. Galeano Attending Physician Jules SZYMANSKI, Dr. Jonny Salazar Nurse Practitioner Jules SZYMANSKI, Dr. Jonny Salazar Attending Physician Alan SZYMANSKI, Dr. Galeano Nurse Practitioner Raj SZYMANSKI, Dr. Tavares Hodges Admitting Physician Raj SZYMANSKI, Dr. Tavares Hodges Nurse Practitioner Tammy VELASCO, Dr. Radha Mayen Attending Physici an Tammy VELASCO, Dr. Radha Mayen Nurse Practitione r Alex APPLIQUE CUTTER-C, Karen Attending Physician Kaleb SZYMANSKI, Arley Attending Physician Kaleb SZYMANSKI, Arley Emergency Department Physician Alex APPLIQUE CUTTER-C, Karen Primary Care Physician [phone] Jose SZYMANSKI, Dr. Luna Emergency Department Physici an Unavailable Fidencio SZYMANSKI, Dr. Harrington Admitting Physician Fidencio SZYMANSKI, Dr. Harrington Nurse Practitioner Fidencio SZYMANSKI, Dr. Harrington Attending Physician GEETA CADET Referring Unavailab le PUGA, MICHAEL L Primary Care Unavailable NOEMY HAIRSTON Admitting Unavailable NOEMY HAIRSTON Attending Unavailable NOEMY HAIRSTON R Referring Unavailable PUGA, MICHAEL L Primary Care Unavailable NOEMY HAIRSTON Attending Unavailable PUGA, MICHAEL L Primary Care Unavailable JANASGEETA Referring Unavailab le PUGA, MICHAEL L Primary Care Unavailable JANGEETA PENA Referring Unavailab le PUGA, MICHAEL L Primary Care Unavailable GEETA CADET Referring Unavailab le PUGA, MICHAEL L Primary Care Unavailable KARISHMAARLENE A Referring Unavailable PUGA, MICHAEL L Primary Care Unavailable ARLENE SCHWARZ A Referring Unavailable PJ BLEDSOE Attending Unavailable PUGA, MICHAEL L Primary Care Unavailable KARISHMA ARLENE A Referring Unavailable PUGA, MICHAEL L Primary Care Unavailable KARISHMA ARLENE A Referring Unavailable PUGA, MICHAEL L Primary Care Unavailable PUGA, MICHAEL L Primary Care Unavailable JANGEETA PENA Referring Unavailab le GEETA CADET Referring Unavailab le PUGA, MICHAEL L Primary Care Unavailable JANASGEETA Referring Unavailab le PUGA, MICHAEL L Primary Care Unavailable JANASGEETA Referring Unavailab le PUGA, MICHAEL L Primary Care Unavailable GEETA CADET TERRELL Referring Unavailab le PUGA, MICHAEL L Primary Care Unavailable GEETA CADET TERRELL Referring Unavailab le PUGA, MICHAEL L Primary Care Unavailable GEETA CADET TERRELL Referring Unavailab le PUGA, MICHAEL L Primary Care Unavailable Yuki Harris Attending Physician Unavailable Kristal Delgadillo Attending Physician [phone] Kristal Delgadillo Referring Provider [phone] Puga, Michael Primary Care Unavailable Anabel Alexander Referring Unavail able Anabel Alexander Attending Unavail able [facility], [facility] Primary Care Unavailabl e Fidencio, Len Admitting Unavailable Fidencio, Len Consulting Unavailable Jonny Vicente Attending Unavailable White, Susan L Consulting Unavailable White, Susan L Admitting Unavailable Jonny Vicente Attending Unavailable Puga, Michael Primary Care Unavailable Raj, Tavares Chi Consulting Unavailable Puga, Michael Primary Care Unavailable Radha Munoz Attending Unavaila ble Raj, Tavares Chi Admitting Unavailable Radha Munoz Consulting Unavaila Waleska Hartley Attending Unavailable Tacho Davis Admitting Unavailable Tacho Davis Consulting Unavailable Puga, Michael Primary Care Unavailable Jonny Vicente Consulting Unavailable Alex C, [facility] Primary Care Unavailabl e Fidencio, Len Consulting Unavailable Jonny Vicente Attending Unavailable Fidencio, Len Admitting Unavailable Yelena Vicentes F Consulting Unavailable White, Susan L Attending Unavailable White, Susan L Admitting Unavailable White, Susan L Consulting Unavailable Puga, Michael Primary Care Unavailable Puga, Michael Primary Care Unavailable Puga, Michael Attending Unavailable Puga, Michael Referring Unavailable Alex C, [facility] Primary Care Unavailcas e Kristal Watkins NP Attending Unavailable Kristal Watkins NP Referring Unavailable Alex VSC, Karen Attending Unavailabl e Alex VSC, Karen Referring Unavailabl e Alex VSC, [facility] Primary Care Unavailabl e Alex VSC, Karen Attending Unavailabl e Alex VSC, [facility] Primary Care Unavailabl e Alex VSC, Karen Attending Unavailabl e Alex VSC, [facility] Referring Unavailabl e Puga, Michael Primary Care Unavailable Puga, Michael Attending Unavailable Puga, Michael Primary Care Unavailable Puga, Michael Referring Unavailable Anabel Alexander Attending Unavail able Anabel Alexander Referring Unavail able [place], [place] Primary Care Unavailable Owen Alcala V Consulting Unavailable Puga, [place] Primary Care Unavailable Key Portillo Attending Unavailabl e Puga, Michael Attending Unavailable Puga, Michael Primary Care Unavailable Edelmira, Ogden Referring Unavailable [facility], [facility] Primary Care Unavailabl e Roland APPLIQUE CUTTER, Kristal Referring Unavailable Roland APPLIQUE CUTTER, Kristal Attending Unavailable [facility], [facility] Attending Unavailabl e Alex [facility], [facility] Primary Care Unavailabl e Tacho Davis Admitting Unavailable Tacho Davis Consulting Unavailable Puga, [place] Primary Care Unavailable Waleska Pihllips Attending Unavailable Jonny Vicente Consulting Unavailable Waleska Phillips Consulting [facility] Unavailable Edlemira, Gallo Attending Unavailable [facility]available Anabel Alexander Referring Unavail able Virgil Her Attending Unavailable [facility] Unavailable Anabel Alexander Attending Unavail able Puga, Michael Referring Unavailable [facility], [facility] Primary Care Unavailabl e Edelmira, Gallo Attending Unavailable Puga, [place] Primary Care Unavailable Edelmira, Ogden Referring Unavailable Edelmira, Gallo Attending [facility]available [facility] Unavailable Edelmira, Gallo Referring Unavailable Edelmira, [place] Attending [facility]available [facility] Unavailable Edelmira, [place] Attending Unavailable Puga, Michael Primary Care Unavailable Edelmira, Gallo Referring Unavailable Edelmira, Og[place] Attending Unavailable Puga, Michael Primary Care Unavailable Edelmira, Og[place] Referring Unavailable Edelmira, Gallo Attending Unavailable Puga, Mcihael Referring Unavailable Anabel Alexander Attending Unavail able [facility] Primary Care Unavailabl e Puga, [place] Primary Care Unavailable Edelmira, Gallo Referring Unavailable Edelmira, Ogden Attending Unavailable Puga, [place] Primary Care Unavailable Anabel Alexander Attending Unavail able Puga, Michael Referring Unavailable Puga, [place] Primary Care Unavailable Edelmira, Ogden Attending Unavailable Puga, Michael Primary Care Unavailable Edelmira, Gallo Referring Unavailable Edelmira, Ogden Attending Unavailable Jonny Vicente Attending Unavailable Jonny Vicente Consulting Unavailable Len Nicolas Attending Unavailable Puga, Michael Primary Care Unavailable Edelmira, Ogden Referring Unavailable Edelmira, Ogden Attending Unavailable Puga, Michael Primary Care Unavailable Anabel Alexander Referring Unavail able Russel Baum Attending Unavailable [facility] Primary [facility] Unavailabl e Edelmira, Gallo Referring Unavailable Edelmira, Gallo Attending Unavailable [facility] Primary Care Unavailabl e Edelmira, [place] Attending Unavailable Edelmira, Gallo Referring Unavailable [facility] Referring Unavailabl e [facility] Primary Care Unavailabl e Kristal Watkins NP Attending Unavailable Raj, Tavares Chi Consulting Unavailable Puga, Michael Primary Care Unavailable Radha Munoz Attending Unavaila ble Raj, Tavares Chi Admitting Unavailable Puga, Michael Primary Care Unavailable Anabel Alexander Attending Unavail able Anabel Alexander Referring Unavail able Puga, Michael Primary Care Unavailable Anabel Alexander Referring Unavail able Anabel Alexander Attending Unavail able Puga, Michale Attending Unavailable Puga, Michael Primary Care Unavailable Puga, Michael Referring Unavailable Puga, Michael Primary Care Unavailable Anabel Alexander Attending Unavail able Anabel Alexander Referring Unavail able Tacho Davis Attending Unavailable [facility] Primary Care Unavailabl e Arley Manuel Attending Unavailable Jonny Vicente Attending Unavailable [facility] Primary Care Unavailabl e Larissa Fontaine Referring Unavailable Larissa Fontaine Attending Unavailable ASIA ROSALES Attending Unavailable PUGA, MICHAEL [...] Unavailable PUGA, MICHAEL L Primary Care Unavailable JOHN, SHARON Attending Unavailable MICHAEL PUGA Primary Care Unavailable KEY PORTILLO Attending UnavailKEY Salazar Referring UnavailMICHAEL Duong Primary Care Unavailable MICHAEL PUGA Attending Unavailable MICHAEL PUGA Primary Care Unavailable Allergies Allergy Classification Reported Allergen(s) Allergy Type Date of Onset Reaction(s) Facility Acetaminophen / HYDROcodone (1 source) Acetaminophen / HYDROcodone Drug Allergy 5 Intolerance [facility] HMG-CoA Reductase Inhibitors (statins) (1 source) Pravastatin Drug Allergy 6 Other: See Comments [facility] Work Phone: Macrolides (antibiotic) (1 source) Azithromycin Drug Allergy 8 Intolerance [facility] Opioid Agonists (1 source) Meperidine Drug Allergy 1 Vomiting [facility] Penicillins (antibiotic) (1 source) Penicillin G Drug Allergy 1 [facility] Quinolones (antibiotic) (1 source) Ciprofloxacin Drug Allergy 9 Rash [facility] Sulfonamides (antibiotic) (1 source) Sulfonamides (Antibiotic) Drug Allergy 1 [facility] (6 sources) acetaminophen / HYDROcodone drug allergy 1 Nausea & vomiting [facility] Work Phone: [phone] (6 sources) Adrenergic Beta-Antagonists drug allergy 5 Fatigue [facility] Work Phone: [phone] (20 sources) lisinopril; Translations: [lisinopril] drug allergy 6 cough [facility] Work Phone: (7 sources) meperidine drug allergy 1 Nausea & Vomiting, Unknown [facility] Work Phone: (7 sources) penicillin drug allergy 1 Hives, Unknown [facility] Work Phone: [phone] (6 sources) Sulfonamides (Antibiotic) drug allergy 1 Hives [facility] Work Phone: [phone] (1 source) guaiFENesin / HYDROcodone Drug Allergy Unknown [facility] (1 source) Sulfonamides (Antibiotic) Unknown [facility] (20 sources) Acetaminophen / HYDROcodone; Translations: [HYDROCODONE-ACET AMINOPHEN] Drug Allergy 5 Intolerance [facility] Work Phone: (20 sources) Azithromycin; Translations: [AZITHROMYCIN] Drug Allergy 8 Intolerance [facility] Work Phone: (20 sources) Meperidine; Translations: [MEPERIDINE (PF)] Drug Allergy 1 Vomiting [facility] (20 sources) Morphinan opioid; Translations: [OPIOIDS - MORPHINE ANALOGUES] Propensity to adverse reactions to drug 1 Intolerance [facility] (20 sources) Penicillin G; Translations: [PENICILLIN G] Drug Allergy 1 [facility] (20 sources) Pethidine analog; Translations: [OPIOIDS-MEPERIDI NE AND RELATED] Propensity to adverse reactions 1 [facility] (20 sources) Pravastatin; Translations: [PRAVASTATIN SODIUM] Drug Allergy 6 Other: See Comments [facility] Work Phone: (20 sources) Sulfonamides (Antibiotic); Translations: [SULFA (SULFONAMIDE ANTIBIOTICS)] Propensity to adverse reactions 1 [facility] (20 sources) Ciprofloxacin; Translations: [CIPROFLOXACIN] Drug Allergy 9 Rash [facility] (20 sources) HYDROcodone Drug Allergy 2 [facility] (20 sources) Meperidine Drug Allergy 2 [facility] (20 sources) Penicillins; Translations: [Penicillins] Allergy to substance 2 [facility] (20 sources) Pravastatin Drug Allergy 2 [facility] Comment on above: LEG CRAMPS (20 sources) Beta-Blockers (Beta-Adrenergic Bloc; Translations: [Beta-Blockers (Beta-Adrenergic Bloc] Propensity to adverse reactions 2 [facility] Comment on above: FATIGUE (20 sources) Morphine Drug Allergy 4 [facility] Comment on above: "sees things" (20 sources) Sulfonamides (Antibiotic) Allergy to substance 4 Hives [facility] (1 source) Ciprofloxacin Drug Allergy 5 [facility] (1 source) HYDROcodone Drug Allergy 5 [facility] (1 source) Meperidine Drug Allergy 5 [facility] (1 source) Morphine Drug Allergy 5 [facility] (1 source) Pravastatin Drug Allergy 5 [facility] (1 source) Sulfonamides (Antibiotic) Drug allergy (disorder) 5 [facility] Medications Current Medications Medication Drug Class(es) Dates Sig (Normalized) Sig (Original) acetaminophen 500 mg oral tablet (13 sources) Start: 12-13-2024 aspirin 81 mg delayed release oral tablet (20 sources) Platelet Aggregation Inhibitor, Nonsteroidal Anti-inflammatory Drug Start: 12-27-2018 Start: 07-16-2016 End: 05-05-2017 Start: 05-13-2016 End: 07-16-2016 Start: 05-24-2013 End: 12-04-2018 Start: 05-24-2013 ASPIRIN 81 MG TABS ASPIRIN [id number] Anabel Horne PA-C Start: 05-24-2013 ASPIRIN 81 MG TABS ASPIRIN [id number] Anabel Horne PA-C Start: 04-07-2011 take 1 tablet by arpan th once daily ASPIRIN 325 MG TABS One tablet by mouth daily ASPIRIN [id number] Delisa Juárez RN Comment on above: Take 81 mg by mouth once daily. azelastine hydrochloride 0.5 mg/ml ophthalmic solution (20 sources) Histamine-1 Receptor Antagonist Start: 04-30-2024 End: 11-02-2024 Start: 04-30-2024 End: 11-02-2024 take 1 drop(s) into the eye(s) twice daily as needed Azelastine 0.05 % drops Active 1 NMA OPHTHALMIC TWICE A DAY as needed for eye drops November 02, 2024 9:45am Start: 04-30-2024 End: [...] this medication unless otherwise directed by prescriber. busPIRone hydrochloride 5 mg oral tablet (3 sources) Start: 02-05-2025 Cyclosporine (20 sources) Calcineurin Inhibitor Immunosuppressant Start: 09-27-2023 Start: 12-24-2022 RESTASIS 0.05 % ophthalmic emulsion 12/24/2022 Active Cyclosporine (Restasis) 0.05 % dropperette (12 sources) Start: 09-27-2023 Cyclosporine ( Restasis) 0.05 [...] Fluticasone Propionate 110 mcg/actuation HFA aerosol inhaler (12 sources) Start: 04-30-2024 Fluticasone Propionate 110 mcg/actuation HFA aerosol inhaler Active 1 NMA INHALATION Q12H April 30, 2024 1:00am SOB/Wheezing Start: 04-30-2024 Fluticasone Pr opionate 110 mcg/actuation HFA aerosol inhaler Active 1 NMA INHALATION Q12H April 30, 2024 1:00am furosemide 20 mg oral tablet (20 sources) Loop Diuretic Start: 01-01-2025 Start: 06-26-2024 End: 12-13-2024 Start: 05-12-2024 End: 02-13-2025 take 1 tablet by mouth once daily Furosemide 20 mg tablet Discontinued 20 mg PO daily July 06, 2024 12:30pm December 13, 2024 12:10pm fluid retention On Hold: Resume on 12/06/24. Start: 05-02-2024 End: 06-01-2024 Start: 09-22-2010 End: 10-27-2011 take 1 tablet by mouth once daily LASIX 40 MG TABS One tablet by mouth daily FUROSEMIDE [id number] Irma Strong hydrALAZINE hydrochloride 50 mg oral tablet (20 sources) Arteriolar Vasodilator Start: 12-13-2024 End: 02-05-2025 Start: 06-01-2024 End: 12-13-2024 Start: 06-01-2024 End: 12-13-2024 Hydralazine 50 mg Tablet Act galye 75 mg PO THREE TIMES A DAY 90 0 December 13, 2024 12:00am you will take 1 50 mg tablet and 1 25 mg tablet 3 times a day to equal 75 mg 3 times a day Start: 06-01-2024 End: 12-03-2024 take 1 tablet by mouth twice daily Hydralazine 50 mg tablet Discontinued 50 mg PO TWICE A DAY 180 3 June 01, 2024 3:01pm December 03, 2024 [...] June 01, 2024 2:54pm Start: 02-07-2024 End: 06-01-2024 Start: 02-07-2024 End: 04-30-2024 take 1 tablet by mouth twice daily Hydralazine 25 mg tablet Discontinued 25 mg PO TWICE A DAY 60 February 07, 2024 12:00am April 30, 2024 7:37am take 2 tablets by mo [facility] twice daily in the morning, then take 9 tablets by mouth in the evening hydrALAZINE (APRESOLINE) 25 mg tablet Take 50 mg by mouth two times a day at 6 am and 9 pm. Active isopropyl alcohol 0.7 ml/ml medicated pad (19 sources) Start: 08-30-2024 alcohol swabs Indications: Hypoglycemia Use with blood glucose test 2 times daily. Insulin Dep? No 200 each 5 08/30/2024 Active levothyroxine sodium 0.05 mg oral capsule (20 sources) l-Thyroxine Start: 01-25-2024 Start: 12-01-2023 End: 06-21-2024 take 1 tablet [...] For thyroid. lidocaine 0.05 mg/mg medicated patch (20 sources) Antiarrhythmic, Amide Local Anesthetic Start: 12-14-19 End: 12-31-19 magnesium oxide 400 mg oral tablet (3 sources) Start: 02-06-20 nitrofurantoin, macrocrystals 25 mg / nitrofurantoin, monohydrate 75 mg oral capsule (1 source) Nitrofuran Antibacterial Start: 10-21-19 End: 10-26-19 take 1 capsule by mouth twice daily nitrofurantoin monohydrate and macrocrystal (MACROBID) 100 mg capsule Take 1 capsule by mouth twice daily for 5 days. 10 capsule 0 10/20/2021 10/25/2021 Active Comment on above: Take 1 capsule by mo [facility] twice daily for 5 days. omeprazole 20 mg delayed release oral capsule (20 sources) Proton Pump Inhibitor Start: 11-03-19 Start: 04-10-2024 End: 07-09-2024 take 1 tablet by mouth once daily Omeprazole Magnesium (PRILOSEC OTC) 20 mg tablet Take 1 tablet by mouth once daily. 90 tablet 04/10/2024 Active Start: 11-25-2021 End: 09-27-2023 Start: 10-29-2020 take 1 capsule by mo [facility] once daily omeprazole (PRILOSEC) 20 mg capsule Take 1 capsule by mouth once daily. 30 capsule 11 10/29/2020 Active Start: 08-27-2017 End: 08-31-2018 Start: 08-27-2017 End: 08-06-2020 Start: 08-27-2017 End: 08-06-2020 take 1 tablet by mouth twice daily Omeprazole 20 mg tablet,delayed release (DR/EC) Discontinued 20 mg PO TWICE A DAY August 27, 2017 12:00am August 06, 2020 2:28pm Start: 07-19-2013 End: 05-28-2015 take 1 tablet by mouth once daily PRILOSEC 20 MG CPDR One tablet by mouth daily OMEPRAZOLE [id number] Gallo Hickey MD Start: 07-19-2013 End: 05-28-2015 take 1 tablet by mouth once daily PRILOSEC 20 MG CPDR One tablet by mouth daily OMEPRAZOLE [id number] Anabel Horne PA-C Comment on above: Take 1 capsule by [facility] once daily. perflutren lipid microspheres 1.3 mL in NaCl (PF) 0.9% 10 mL injection (DEFINITY) (14 sources) Start: 06-04-2022 End: 09-04-2023 perflutren lipid microspheres 1.3 mL in NaCl (PF) 0.9% 10 mL injection (DEFINITY) rosuvastatin calcium 10 mg oral tablet (20 sources) HMG-CoA Reductase Inhibitor Start: 01-23-2020 End: 11-27-2024 Comment on above: Take 1 tablet by arpan th daily at bedtime. spironolactone 25 mg oral tablet (20 sources) Aldosterone Antagonist Start: 12-27-2024 Start: 01-25-2024 End: 12-20-2024 sucralfate 100 mg/ml oral [place] spension (20 sources) Aluminum Complex Start: 11-25-2021 Start: 08-08-2021 take 10 mL by mouth four times daily sucralfate (CARAFATE) 100 mg/mL suspension Take 10 mL by mouth four times daily. 414 mL 2 04/12/2024 Active Start: 08-27-2017 End: 09-10-2017 Comment on above: Take 10 mL by mouth four times daily. ubidecarenone 100 mg oral capsule (20 sources) Start: 01-23-2020 ubidecarenone (COQ-10 ORAL) (20 sources) ubidecarenone (C OQ-10 ORAL) Take by mouth. Active ubidecarenone (C OQ-10 ORAL) Take by mouth. 0 Active Comment on above: Take by mouth. Vitamin B Complex (Balanced B-50) tablet (12 sources) Start: 04-30-2024 Vitamin B Comp chai [...] to 6 hours as needed HYDROCODONE-ACETAM INOPHEN [id number] Gallo Hickey MD [id number] 200 actuat albuterol 0.09 mg/actuat metered dose inhaler (20 sources) beta2-Adrenergic Agonist Start: 10-02-2023 End: 12-30-2024 Start: 10-02-2023 Albuterol Sulf ate (Proair Hfa) 90 mcg/actuation HFA aerosol inhaler [...] aerochamber. Quantity: 1 Refills: 0 Ordered: 21-Dec-2020 Aryanedithlaquita Bernie Start: 21-Dec-2020 End: 19-Jan-2021 Generic Substitution Allowed [...] (20 sources) Antiarrhythmic Start: 01-23-2020 End: 07-20-2024 Start: 07-14-2011 End: 07-14-2011 take 1 tablet by mouth once daily AMIODARONE HCL 200 MG TABS One tablet by mouth daily AMIODARONE HCL [id number] Delisa Juárez RN Start: 04-07-2011 AMIODARONE HCL 200 MG TABS 1 tablet twice a day for two weeks then 1 a day AMIODARONE HCL [id number] Gallo Hickey MD Comment on above: Take 200 mg by mouth once daily. amLODIPine 10 mg oral tablet (18 sources) Dihydropyridine Calcium Channel Nicolle Start: 05-28-19 16 End: 08-29-19 17 take 1 tablet by mouth once daily NORVASC 10 MG TABS One tablet by mouth daily AMLODIPINE BESYLATE [id number] Gallo Hickey MD apixaban 5 mg oral tablet (20 sources) Factor Xa Inhibitor Start: 12-05-19 End: 12-28-19 19 cholecalciferol 0.05 mg oral capsule (20 sources) Vitamin D Start: 06-02-19 End: 11-03-19 Start: 10-30-2020 End: 03-13-2024 take 1 capsule by mouth once daily Cholecalciferol, Vitamin D3, 50 mcg (2,000 unit) cap Indications: Low vitamin D level Take 1 capsule by mouth once daily. 90 capsule 3 10/30/2020 03/13/2024 Discontinued (Discontinued by Patient) Start: 12-24-2018 End: 12-27-2018 Comment on above: Take 1 capsule by [facility] once daily. citalopram 20 mg oral tablet (6 sources) Serotonin Reuptake Inhibitor Start: 09-23-19 11 take 1 tablet by mouth once daily CELEXA 20 MG TABS One tablet by mouth daily CITALOPRAM HYDROBROMIDE [id number] Irma Strong clindamycin 300 mg oral capsule (12 sources) Lincosamide Antibacterial Start: 09-23-19 11 End: 05-18-19 13 CLINDAMYCIN HCL 300 MG CAPS 2 tablets by mouth 30-60 mins prior to procedure CLINDAMYCIN HCL [id number] Irma Strong 24 hr dilTIAZem hydrochloride 240 mg extended release oral capsule (20 sources) Calcium Channel Nicolle Start: 08-11-19 14 End: 05-15-19 25 Start: 08-10-2013 take 1 capsule by mo [facility] once daily diltiazem CD (CARDIZEM CD) 240 mg 24 hr capsule Indications: Essential hypertension Take 1 capsule by mouth once daily. 0 10/25/2015 Active Start: 08-10-2013 DILT-XR 240 MG [id number] DILTIAZEM HCL [id number] Kristel Garcia RN Start: 08-10-2013 take 1 tablet by arpan th once daily DILT-XR 240 MG [id number] One tablet by mouth daily DILTIAZEM HCL [id number] Glalo Hickey MD Start: 07-19-2013 take 1 tablet by arpan th twice daily DILT-XR 120 MG [id number] One tablet by mouth twice daily DILTIAZEM HCL [id number] Anabel Horne PA-C Start: 07-19-2013 take 1 tablet by arpan th twice daily DILT-XR 120 MG [id number] One tablet by mouth twice daily DILTIAZEM HCL [id number] Anabel Horne PA-C Start: 05-05-2011 take 1 tablet by arpan th once daily DILT-XR 120 MG [id number] One tablet by mouth daily DILTIAZEM HCL [id number] Gallo Hickey MD Start: 05-05-2011 take 1 tablet by arpan th once daily DILT-XR 120 MG [id number] One tablet by mouth daily DILTIAZEM HCL [id number] Gallo Hickey MD Comment on above: Take 1 capsule by mo [facility] once daily. enalapril maleate 20 mg oral tablet (12 sources) Angiotensin Converting Enzyme Inhibitor Start: 09-22-2010 End: 05-05-2011 ENALAPRIL MALEATE 20 MG TABS 1/2 tablet daily ENALAPRIL MALEATE [id number] Gallo Hickey MD escitalopram 20 mg oral tablet (20 sources) Serotonin Reuptake Inhibitor Start: 08-16-2013 End: 09-27-2023 Start: 05-24-2013 take 1 tablet by arpan th once daily ESCITALOPRAM OXALATE 10 MG TABS One tablet by mouth daily ESCITALOPRAM OXALATE [id number] Anabel Horne PA-C Comment on above: Take 1 tablet by arpan th once daily. ferrous sulfate 325 mg oral tablet (20 sources) Start: 12-03-2022 End: 09-27-2023 End: 12-01-2023 ferrous sulfate (SLOW FE ORA L) Take by mouth twice daily. 0 12/01/2023 Discontinued ferrous sulfate (SLOW FE ORAL) Take by mouth twice daily. 0 Active Comment on above: Take by mouth twice daily. flecainide acetate 150 mg or al tablet (20 sources) Antiarrhythmic Start: 07-24-2011 End: 01-23-2020 Start: 07-14-2011 take 1 tablet by arpan th twice daily FLECAINIDE ACETATE 100 MG TABS One tablet by mouth twice daily FLECAINIDE ACETATE [id number] Gallo Hickey MD 120 actuat fluticasone propi rick 0.11 mg/actuat metered dose inhaler (20 sources) Corticosteroid Start: 04-30-2024 End: 12-30-2024 Start: 03-01-2024 End: 06-21-2024 take 1 puff(s) by mouth twice daily fluticasone (FLOVENT) 110 mcg/actuation inhaler Indications: Obstructive lung disease (HCC) Inhale 1 Puff as instructed two times a day. Shake well before use. Rinse mouth after use. 1 Each 1 03/01/2024 06/21/2024 Discontinued fluticasone / salmeterol (20 sources) Corticosteroid, beta2-Adrenergic Agonist Start: 06-21-2024 End: 12-20-2024 take 1 puff(s) by mouth twice daily fluticasone-salmeterol (ADVAIR DISKUS) 250-50 mcg/dose inhaler Indications: Obstructive lung disease (HCC) Inhale 1 Puff as instructed two times a day. RINSE AND GARGLE MOUTH WITH WATER AFTER EACH USE. 3 Each 3 06/21/2024 12/20/2024 Discontinued Start: 06-21-2024 take 1 puff(s) by mo [facility] twice daily fluticasone-salmeterol (ADVAIR DISKUS) 250-50 mcg/dose inhaler Indications: Obstructive lung disease (HCC) Inhale 1 Puff as instructed two times a day. RINSE AND GARGLE MOUTH WITH WATER AFTER EACH USE. 3 Each 3 06/21/2024 Active gabapentin 100 mg oral capsule (20 sources) Anti-epileptic Agent Start: 12-03-2024 End: 12-13-2024 take 3 capsules by mouth at bedtime Gabapentin 100 mg capsule Discontinued 300 mg PO AT BEDTIME 12 0 December 03, 2024 1:56pm December 13, 2024 12:11pm neuropathy Start: 11-13-2024 End: 12-14-2024 Start: 05-06-2017 End: 06-10-2017 Start: 05-25-2014 End: 05-28-2015 take 1 tablet by mouth three times daily GABAPENTIN 300 MG CAPS One tablet by mouth three times daily GABAPENTIN [id number] Gallo Hickey MD 12 hr guaiFENesin 600 mg ext ended release oral tablet (20 sources) Start: 10-06-2023 End: 08-17-2024 hydroCHLOROthiazide 12.5 mg oral capsule (20 sources) Thiazide Diuretic Start: 04-30-2024 End: 08-23-2024 Start: 06-04-2022 End: 03-13-2024 take 2 capsules [...] 30 capsule 12 06/04/2022 06/04/2022 Discontinued Start: 06-13-2021 End: 01-25-2024 Start: 06-13-2021 End: 11-25-2021 take 1 tablet by mouth once daily Hydrochlorothiazide 25 mg tablet Discontinued 25 mg PO DAILY 30 June 13, 2021 1:00am November 25, 2021 2:54pm Comment on above: Take 2 capsules by m out once daily. Take 1 capsule by mo [facility] once daily. ibuprofen 800 mg oral tablet (18 sources) Nonsteroidal Anti-inflammatory Drug Start: 1 End: 6 take 1 tablet by mouth every four hours as needed IBUPROFEN 800 MG TABS 1 tablet by mouth Q4H as needed IBUPROFEN [id number] Anabel Horne PA-C lisinopril 10 mg oral tablet (6 sources) Angiotensin Converting Enzyme Inhibitor Start: 5 take 1 tablet by mouth once daily LISINOPRIL 10 MG TABS One tablet by mouth daily LISINOPRIL [id number] Anabel Horne PA-C LORazepam 0.5 mg oral tablet (20 sources) Benzodiazepine Start: 7 End: 6 Comment on above: Take 1 tablet by arpan twice daily as needed (anxiety attack). losartan potassium 100 mg oral tablet (20 sources) Angiotensin 2 Receptor Nicolle Start: 6 End: 5 Start: 04-04-2015 take 1 tablet by arpan th once daily LOSARTAN POTASSIUM 50 MG TABS One tablet by mouth daily LOSARTAN POTASSIUM [id number] Anabel Horne PA-C Start: 04-04-2015 End: 06-26-2015 take 1 tablet by mouth twice daily LOSARTAN POTASSIUM 50 MG TABS One tablet by mouth twice daily LOSARTAN POTASSIUM [id number] Kristel Garcia RN Comment on above: Take 1 tablet by arpan once daily. meloxicam 15 mg oral tablet (20 sources) Nonsteroidal Anti-inflammatory Drug Start: 03-01-2024 End: 12-30-2024 Start: 08-31-2018 End: 12-04-2018 metFORMIN hydrochloride 500 mg oral tablet (10 sources) Biguanide Start: 02-16-2022 End: 06-22-2022 take 1 tablet by mouth once daily at breakfast metFORMIN (GLUCOPHAGE) 500 mg tablet Indications: IFG (impaired fasting glucose) , Obesity, Class II, BMI 35-39.9 Take 1 tablet by mouth daily with breakfast. 90 tablet 3 02/16/2022 06/22/2022 Discontinued Comment on above: Take 1 tablet by arpan th daily with breakfast. metroNIDAZOLE 500 mg oral tablet (20 sources) Nitroimidazole Antimicrobial Start: 05-08-2017 End: 06-10-2017 mirtazapine 15 mg oral tablet (8 sources) Start: 2022 End: 06-22-2022 take 1 tablet by mouth once daily at bedtime mirtazapine (REMERON) 15 mg tablet Take 1 tablet by mouth daily at bedtime. For insomnia 30 tablet 1 2022 06/22/2022 Discontinued Comment on above: Take 1 tablet by arpan th daily at bedtime. For insomnia MULTIPLE VITAMIN (10 sources) Start: 05-18-2012 take 1 tablet by mouth once daily MULTIVITAMINS TABS One tablet by mouth daily MULTIPLE VITAMIN [id number] Gallo Hickey MD Start: 05-18-2012 End: 05-24-2013 take 1 tablet by mouth once daily MULTIVITAMINS TABS One tablet by mouth daily MULTIPLE VITAMIN [id number] Anabel Horne PA-C MULTIPLE VITAMIN (2 sources) Start: 05-18-2012 take 1 tablet by mouth once daily MULTIVITAMINS TABS One tablet by mouth daily MULTIPLE VITAMIN [id number] Gallo Hickey MD Start: 05-18-2012 End: 05-24-2013 take 1 tablet by mouth once daily MULTIVITAMINS TABS One tablet by mouth daily MULTIPLE VITAMIN [id number] Anabel Horne PA-C Nebulizer Accessories kit (20 [...] 06/21/2024 Active nystatin 100 unt/mg topical powder (20 sources) Polyene Antifungal Start: 05-08-2017 End: 06-10-2017 Nystatin Discontinued 1 APPLIC TOPICAL THREE TIMES A DAY May 08, 2017 10:54am June 10, 2017 12:16pm Start: 05-08-2017 End: 06-10-2017 Start: 05-08-2017 End: 06-10-2017 Nystatin 1 APPLIC [...] by mouth daily OMEGA-3 FATTY ACIDS CPDR [id number] Irma Strong Start: 09-22-2010 End: 05-18-2012 take 1 tablet by mouth once daily OMEGA 3 CPDR One tablet by mouth daily OMEGA-3 FATTY ACIDS CPDR [id number] Gallo Hickey MD OMEGA-3 FATTY ACIDS CPDR (2 sources) Start: 09-22-2010 take 1 tablet by mouth once daily OMEGA 3 CPDR One tablet by mouth daily OMEGA-3 FATTY ACIDS CPDR [id number] Irma Strong Start: 09-22-2010 End: 05-18-2012 take 1 tablet by mouth once daily OMEGA 3 CPDR One tablet by mouth daily OMEGA-3 FATTY ACIDS CPDR [id number] Gallo Hickey MD PARoxetine hydrochloride 40 mg oral tablet (20 sources) Serotonin Reuptake Inhibitor Start: 08-17-2024 End: 02-13-2025 Start: 08-17-2024 End: 08-17-2024 take 1 tablet by mouth once daily PARoxetine (PAXIL) 30 mg tablet Indications: Anxiety , Dysthymia Take 1 tablet by mouth once daily. 30 tablet 2 08/17/2024 08/17/2024 Discontinued Start: 12-03-2022 End: 11-02-2024 Start: 12-16-2021 End: 06-29-2022 take 1 tablet by mouth once daily in the evening PARoxetine (PAXIL) 20 mg tablet Indications: Situational insomnia , Situational mixed anxiety and depressive disorder Take 1 tablet by mouth once daily. In the evening 90 tablet 1 06/29/2022 Active Comment on above: Take 1 tablet by arpan th once daily. In the evening polyethylene glycol 3350 170 00 mg powder for oral solution (20 sources) Osmotic Laxative Start: 05-08-2017 End: 06-10-2017 predniSONE 10 mg oral tablet (20 sources) Start: 11-29-2024 End: 12-13-2024 Start: 11-02-2024 End: 11-02-2024 Start: 10-02-2023 End: 04-30-2024 Start: 10-02-2023 End: 04-30-2024 take 4 tablets [...] (20 sources) Nonergot Dopamine Agonist Start: 05-11-19 End: 12-21-19 take 1 tablet by mouth once daily at bedtime rOPINIRole (REQUIP) 1 mg tablet Indications: Restless leg Take 1 tablet by mouth daily at bedtime. 30 tablet 3 08/30/2024 12/20/2024 Discontinued sertraline 25 mg oral tablet (15 sources) Serotonin Reuptake Inhibitor Start: 12-14-19 End: 02-06-20 Start: 12-13-2024 Sertraline 25 mg tablet Active 0 .ROUTE .COMPLEX 42 0 December 13, 2024 12:00am take 2 tabs at bedtime for 2 weeks and then decrease to 1 tab at bedtime for 2 weeks then discontinue sodium chloride 1000 mg oral tablet (20 sources) Start: 12-13-2024 End: 02-05-2025 Start: 06-04-2022 End: 09-04-2023 sodium chloride 0.9 % (flush ) 10 mL (BD POSIFLUSH) topiramate 25 mg oral tablet (20 sources) Start: 09-21-2022 End: 09-27-2023 Comment on above: Take 1 tablet by arpan th daily with breakfast. traZODone hydrochloride 100 mg oral tablet (20 sources) Serotonin Reuptake Inhibitor Start: 01-25-2024 End: 04-30-2024 Start: 10-19-2023 End: 01-17-2024 take 1 tablet [...] oral capsule (20 sources) Vitamin B12 Start: 12-24-2018 End: 12-27-2018 Start: 07-14-2011 take 5000 mg by mout h once daily VITAMIN B-12 1000 MCG TABS 5000 mg, One tablet by mouth daily CYANOCOBALAMIN [id number] Delisa Juárez RN take 1 tablet by arpan th once daily cyanocobalamin (VITAMIN B-12) 1,000 mcg tab Take 1,000 mcg by mouth once daily. Active B COMPLEX VITAMINS (20 sources) Start: 09-22-2010 take 1 tablet by mouth once daily VITAMIN B COMPLEX TABS One tablet by mouth daily B COMPLEX VITAMINS [id number] Irma Strong End: 03-13-2024 vitamin B complex [...] for sedation for up to 30 days. (20 sources) Start: 11-02-2024 End: 11-02-2024 Start: 04-30-2024 End: 02-05-2025 Start: 04-30-2024 End: 12-30-2024 Start: 04-30-2024 Start: 09-27-2023 Problems Active Problems Problem Classification Problem Date [...] [Sick sinus syndrome] Onset: 1 Resolved: 5 04-29-2016 Chronic Chronic obstructive pulmonary disease and bronchiectasis (20 sources) Obstruction of lower respiratory tract; Translations: [Chronic obstructive pulmonary disease, unspecified] Onset: 3 12-30-2022 Chronic Conditions associated with dizziness or vertigo (20 sources) Loss of equilibrium; Translations: [Dizziness and [...] above: Right side Deficiency and other anemia (20 sources) Normocytic normochromic anemia; Translations: [Anemia, unspecified] 12-04-2024 Episodic Deficiency and other anemia (3 sources) Anemia; Translations: [Anemia, unspecified] 12-20-2024 Episodic Deficiency and other anemia (8 sources) Chronic anemia; Translations: [Anemia, unspecified] 12-29-2024 Episodic Deficiency and other anemia (3 sources) Anemia, unspecified; Translations: [Anemia, unspecified] Onset: 5 Episodic Disorders of lipid metabolism (20 sources) Hyperlipidemia; Translations: [Hyperlipidemia, unspecified] Onset: 1 Resolved: 6 09-22-2010 Chronic E Codes: Fall (20 sources) Fall on same level from slipping, [...] 11-10-2016 Chronic Genitourinary symptoms and ill-defined conditions (12 sources) Increased frequency of urination; Translations: [Frequency of micturition] Episodic Heart valve disorders (20 sources) Tricuspid valve regurgitation; Translations: [Rheumatic tricuspid insufficiency] Onset: 5 12-08-2024 Chronic Comment on above: 2+ on echocardiogram done 11/29/2024 Hypertension with complications and secondary hypertension (20 sources) Hypertensive emergency; Translations: [Hypertensive emergency] Onset: 5 11-29-2024 Chronic Immunizations and screening for infectious disease (4 sources) Needs influenza immunization; Translations: [Encounter for immunization] Episodic Malaise and fatigue (20 sources) Fatigue; Translations: [...] 0 07-12-2019 Chronic Open wounds of extremities (20 sources) Tear of skin; Translations: [Laceration without foreign body of unspecified elbow, initial encounter] 01-03-2022 Episodic Other aftercare (2 sources) Post-discharge follow-up; Translations: [Encounter for follow-up examination after completed treatment for conditions other than malignant neoplasm] 10-14-2023 Episodic Other aftercare (20 sources) Long-term current use of diuretic; Translations: [Encounter for therapeutic drug level monitoring] 06-26-2024 Episodic Other aftercare (4 sources) Drug therapy finding; Translations: [Other group home (current) drug therapy] 06-01-2024 Episodic Other aftercare (20 sources) Long-term current use of amiodarone; Translations: [Other terminal operations supervisor (current) drug therapy] 06-01-2024 Episodic Other aftercare (2 sources) Other group home (current) drug therapy; Translations: [Other group home (current) drug therapy] Onset: Episodic Other and ill-defined heart disease (20 sources) Cardiomegaly; Translations: [Moderate left ventricular hypertrophy] Onset: 5 12-04-2024 Chronic Other and ill-defined heart disease (20 sources) Left atrial enlargement; Translations: [Cardiomegaly] 12-04-2024 Chronic Other circulatory disease (20 sources) Disorder of carotid artery; Translations: [Disorder of arteries and arterioles, unspecified] Onset: 6 05-28-2015 Chronic Other circulatory disease (20 sources) Carotid bruit; Translations: [Other specified symptoms and signs involving the circulatory and respiratory systems] 06-01-2024 Episodic Comment on above: Carotid US in July of 2024 showed less than 50% stenosis Other circulatory disease (11 sources) H/O: heart failure; Translations: [Personal history of other diseases of the circulatory system] 12-23-2024 Episodic Other connective tissue disease (20 sources) Recurrent falls ; Translations: [Repeated falls] 12-27-2018 Episodic Other endocrine disorders (1 source) Hypoglycemia; Translations: [Hypoglycemia, unspecified] 08-30-2024 Chronic Other endocrine disorders (1 source) Hypoglycemia, unspecified; Translations: [Hypoglycemia] Onset: Chronic Other gastrointestinal disorders (1 source) Diarrhea; Translations: [Diarrhea, unspecified] 10-06-2023 Episodic Other gastrointestinal disorders (20 sources) Occult blood in stools; Translations: [Other fecal abnormalities] 12-11-2024 Episodic Other gastrointestinal disorders (2 sources) Other fecal abnormalities; Translations: [Other fecal abnormalities] Onset: Episodic Other hereditary and degenerative nervous system conditions (2 sources) Restless legs; Translations: [Restless legs syndrome] 05-11-2024 Chronic Other hereditary and degenerative nervous system conditions (1 source) Restless legs syndrome; Translations: [Restless leg] Onset: 5 Chronic Other inflammatory condition of skin (2 sources) Dermatitis herpetiformis; 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 Other injuries and conditions due to external causes (20 sources) Closed injury of head; Translations: [Unspecified injury of head, initial encounter] 12-25-2018 Episodic Other injuries and conditions due to external causes (20 sources) Injury of head; Translations: [Unspecified injury of head, initial encounter] 01-03-2022 Episodic Other lower respiratory disease (20 sources) Dyspnea; Translations: [Shortness of breath] Onset: 1 09-22-2010 Episodic Comment on above: SOB Other lower respiratory disease (20 sources) Dyspnea on exertion; Translations: [Shortness of breath] Onset: 3 Episodic Other lower respiratory disease (20 sources) Hypoxia; Translations: [Hypoxemia] 04-30-2024 Episodic Other lower respiratory disease (1 source) Obstruction of lower respiratory tract 08-18-2024 Episodic Other lower respiratory disease (8 sources) Increasing breathlessness; Translations: [Shortness of breath] 12-29-2024 Episodic Other lower respiratory disease (2 sources) Shortness of breath; Translations: [Shortness of breath] Onset: 5 Episodic Other nervous system disorders (20 sources) Difficulty walking; Translations: [Difficulty in walking, not elsewhere classified] Onset: 5 11-15-2023 Chronic Other nervous system disorders (2 sources) Unable to walk; Translations: [Difficulty in walking, not elsewhere classified] 11-29-2024 Chronic Other nervous system disorders (1 source) Difficulty in walking, not elsewhere classified; Translations: [Difficulty walking] Onset: 5 Chronic Other nervous system disorders (2 sources) Polyneuropathy, unspecified; Translations: [Polyneuropathy, unspecified] Onset: 5 Chronic Other nervous system disorders (20 sources) Tremor; Translations: [Tremor, unspecified] 11-29-2024 Episodic Other nervous system disorders (1 source) Tremor, unspecified; Translations: [Tremor, unspecified] Onset: 5 Episodic Other non-traumatic joint disorders (20 sources) Arthropathy of multiple joints; Translations: [Arthropathy, unspecified] Onset: 8 03-07-2018 Chronic Other nutritional; [...] metabolic disorders (20 sources) Body mass index 40+ - severely [...] conditions (not mental disorders or infectious disease) (20 sources) Electrocardiogram abnormal; Translations: [Abnormal electrocardiogram [ECG] [EKG]] Onset: 1 09-22-2010 Episodic Other upper respiratory disease (20 sources) Allergic rhinitis; Translations: [Allergic rhinitis, unspecified] 01-08-2005 Chronic Pneumonia (except that caused by tuberculosis or sexually transmitted disease) (20 sources) Community acquired pneumonia; Translations: [Pneumonia, unspecified [...] Onset: 5 10-14-2023 Chronic Sprains and strains (20 sources) Strain of neck muscle; Translations: [Strain [...] Translations: [Transient cerebral ischemic attack, unspecified] Onset: 12-09-2018 Chronic Unclassified (1 source) Physical Therapy Onset: Viral infection (2 sources) Disease caused by 2018-nCoV 12-21-2020 Comment on above: COVID EXP Past [...] gastroduodenitis] Onset: 04-10-2024 Resolved: 03-11-2015 03-11-2015 Episodic Melanomas of skin (20 sources) History [...] Onset: 05-31-2024 Episodic Other lower respiratory disease (3 sources) Other forms of dyspnea; Translations: [Other forms of dyspnea] Onset: 12-22-2022 Episodic Other lower respiratory disease (2 sources) Hypoxemia; Translations: [Hypoxemia] Onset: 05-08-2024 Episodic Other nervous system disorders (20 sources) Impairment of balance; Translations: [Other abnormalities of gait and mobility] Onset: 09-28-2024 11-15-2023 Episodic Other nervous system disorders (20 sources) Abnormal gait; Translations: [Unspecified abnormalities of gait and mobility] Onset: 08-30-2024 03-01-2024 Episodic Other nervous system disorders (1 source) Unspecified abnormalities of gait and mobility; Translations: [Abnormality of gait] Onset: 09-28-2024 Episodic Other nervous system disorders (1 source) Other abnormalities of gait and mobility; Translations: [Imbalance] Onset: 09-28-2024 Episodic Other skin disorders (20 sources) Actinic [...] Test Name Value Interpretation Reference Range Facility CBC W/Diff, Automatedon 11-0 Absolute Lymph 1.14 X10 3/uL Normal 0.83-4.51 [facility] Comment on above: Performed By: #### L 500.4050, L100.0100 ####[facility] [address] [place], [address] Absolute Neut 7.7 X10 3/uL Normal 2.0-7.7 [facility] Comment on above: Performed By: #### L 500.4050, L100.0100 ####[facility] [address] [place], [address] Basophils/100 WBC (Bld) 0.5 % Normal 0-1 [facility] Comment on above: Performed By: #### L 500.4050, L100.0100 ####[facility] [address] [place], [address] Eosinophils/100 WBC (Bld) 1.8 % Normal 0-5 [facility] Comment on above: Performed By: #### L 500.4050, L100.0100 ####[facility] [address] [place], [address] Erythrocyte distribution width (RBC) [Ratio] 14.6 % Normal 11.6-14.6 [facility] Comment on above: Performed By: #### L 500.4050, L100.0100 ####[facility] [address] [place], [address] Hematocrit (Bld) [Volume fraction] 35.8 % Low 37-47 [facility] Comment on above: Performed By: #### L 500.4050, L100.0100 ####[facility] [address] [place], [address] Hemoglobin (Bld) [Mass/Vol] 11.4 g/dL Low 12.0-15.0 [facility] Comment on above: Performed By: #### L 500.4050, L100.0100 ####[facility] [address] [place], [address] IG% 0.300 Normal 0.0-0.9 [facility] Comment on above: Result Comment: IG% - Immature Granulocytes (promyelocytes, myelocytes andmetamyelocytes) > 1% indicates that a LEFT SHIFT is Present. Performed By: #### L 500.4050, L100.0100 ####[facility] [address] [place], [address] Lymphocytes/100 WBC (Bld) 11.2 % Low 19-41 [facility] Comment on above: Performed By: #### L 500.4050, L100.0100 ####[facility] [address] [place], [address] MCH (RBC) [Entitic mass] 29.6 pg Normal 27.0-32.0 [facility] Comment on above: Performed By: #### L [id number], L100.0100 ####[facility] [address] [place], [address] MCHC (RBC) [Mass/Vol] 31.8 g/dL Low 32-36 [facility] Comment on above: Performed By: #### L 500.4050, L100.0100 ####[facility] [address] [place], [address] MCV (RBC) [Entitic vol] 93.0 fL Normal 81-99 [facility] Comment on above: Performed By: #### L [id number], L100.0100 ####[facility] [address] [place], [address] Monocytes/100 WBC (Bld) 10.2 % High 0-10 [facility] Comment on above: Performed By: #### L 500.4050, L100.0100 ####[facility] [address] [place], [address] Neutrophils/100 WBC (Bld) 76.0 % High 47-70 [facility] Comment on above: Performed By: #### L 500.4050, L100.0100 ####[facility] [address] [place], [address] Nucleated RBC (Bld) [#/Vol] 0 10*3/uL Normal 0-5 [facility] Comment on above: Performed By: #### L 500.4050, L100.0100 ####[facility] [address] [place], [address] Platelet mean volume (Bld) [Entitic vol] 11.6 fL Normal 6.2-12.0 [facility] Comment on above: Performed By: #### L 500.4050, L100.0100 ####[facility] [address] [place], [address] Platelets (Bld) [#/Vol] 229 10*3/uL Normal 150-450 [facility] Comment on above: Performed By: #### L 500.4050, L100.0100 ####[facility] [address] [place], [address] RBC (Bld) [#/Vol] 3.85 10*6/uL Low 4.2-5.4 [facility] Comment on above: Performed By: #### L 500.4050, L100.0100 ####[facility] [address] [place], [address] RDW SD 50.1 fl High 35.1-43.9 [facility] Comment on above: Performed By: #### L 500.4050, L100.0100 ####[facility] [address] [place], [address] WBC (Bld) [#/Vol] 10.2 10*3/uL Normal 4.4-11.0 [facility] Comment on above: Performed By: #### L 500.4050, L100.0100 ####[facility] [address] [place], [address] Comprehensive Metabolic Prof ilon 03-07-2025 Albumin [Mass/Vol] 4.2 g/dL Normal 3.4-4.8 [facility] Comment on above: Performed By: #### L 500.4050, L100.0100 ####[facility] [address] [place], [address] Albumin/Globulin [Mass ratio] 1.8 {ratio} Normal 0.9-2.4 [facility] Comment on above: Performed By: #### L 500.4050, L100.0100 ####[facility] [address] [place], [address] ALK PHOS 73 U/L Normal 35-104 [facility] Comment on above: Performed By: #### L 500.4050, L100.0100 ####[facility] [address] [place], [address] ALT [Catalytic activity/Vol] 33 U/L Normal <=34 [facility] Comment on above: Performed By: #### L 500.4050, L100.0100 ####[facility] [address] [place], [address] AST [Catalytic activity/Vol] 28 U/L Normal <=31 [facility] Comment on above: Performed By: #### L 500.4050, L100.0100 ####[facility] [address] [place], [address] Bilirubin [Mass/Vol] 0.55 mg/dL Normal 0.00-1.30 [facility] Comment on above: Performed By: #### L 500.4050, L100.0100 ####[facility] [address] [place], [address] BUN/CRE 25.1 RATIO High 10-20 [facility] Comment on above: Performed By: #### L 500.4050, L100.0100 ####[facility] [address] [place], [address] Calcium [Mass/Vol] 9.1 mg/dL Normal 7.6-11.0 [facility] Comment on above: Performed By: #### L 500.4050, L100.0100 ####[facility] [address] [place], [address] Chloride [Moles/Vol] 100 mmol/L Normal 98-108 [facility] Comment on above: Performed By: #### L 500.4050, L100.0100 ####[facility] [address] [place], [address] CO2 [Moles/Vol] 24.0 mmol/L Normal 21.0-32.0 [facility] Comment on above: Performed By: #### L 500.4050, L100.0100 ####[facility] [address] [place], [address] Creatinine [Mass/Vol] 1.17 mg/dL Normal 0.70-1.20 [facility] Comment on above: Performed By: #### L 500.4050, L100.0100 ####[facility] [address] [place], [address] GAP 14 Normal 5-15 [facility] Comment on above: Performed By: #### L 500.4050, L100.0100 ####[facility] [address] [place], [address] GFR/1.73 sq M.predicted among non-blacks MDRD (S/P/Bld) [Vol rate/Area] 46 mL/min/{1.73_m2} Low >60 [facility] Comment on above: Result Comment: mL/m in/1.73m2 CKD-EPI Creatinine Equation (2020) Performed By: #### L 500.4050, L100.0100 ####[facility] [address] [place], [address] Globulin (S) [Mass/Vol] 2.4 g/dL Normal 2.2-4.2 [facility] Comment on above: Performed By: #### L 500.4050, L100.0100 ####[facility] [address] [place], [address] Glucose [Mass/Vol] 90 mg/dL Normal 70-99 [facility] Comment on above: Performed By: #### L 500.4050, L100.0100 ####[facility] [address] [place], [address] Potassium [Moles/Vol] 4.7 mmol/L Normal 3.3-5.1 [facility] Comment on above: Performed By: #### L 500.4050, L100.0100 ####[facility] [address] [place], [address] Sodium [Moles/Vol] 138 mmol/L Normal 133-145 [facility] Comment on above: Performed By: #### L 500.4050, L100.0100 ####[facility] [address] [place], [address] T PROT 6.6 g/dL Normal 5.9-8.4 [facility] Comment on above: Performed By: #### L 500.4050, L100.0100 ####[facility] [address] [place], [address] Urea nitrogen [Mass/Vol] 29 mg/dL High 4-19 [facility] Comment on above: Performed By: #### L 500.4050, L100.0100 ####[facility] [address] [place], [address] Absolute lymphocyte countOrd ered By: Kristal Watkins on 02-05-2025 Lymphocytes Auto (Unsp spec) [#/Vol] 1.21 10*3/uL 0.83-4.51 [facility] Anion gap in Serum or Plasma Ordered By: Kristal Watkins on 02-05-2025 Anion gap [Moles/Vol] 13 mmol/L 5-15 [facility] Automated lymphocyte count a s percentage of total leukocytesOrdered By: Kristal Watkins on 02-05-2025 Lymphocytes/100 WBC Auto (Unsp spec) 15.4 % Low 19-41 [facility] BUN/creatinine ratioOrdered By: Kristal Watkins on 02-05-2025 Urea nitrogen/Creatinine [Mass ratio] 31.6 mg/mg High 10- [facility] Basic Metabolic Profile (BMP )on 02-05-2025 BUN/CRE 31.6 RATIO High 10- [facility] Comment on above: Performed By: #### L 503.7505, L501.9520, L100.0100, L500.2500 ####[facility] [address] [place], [address] Calcium [Mass/Vol] 9.5 mg/dL Normal 7.6-11.0 [facility] Comment on above: Performed By: #### L 503.7505, L501.9520, L100.0100, L500.2500 ####[facility] [address] [place], [address] Chloride [Moles/Vol] 100 mmol/L Normal 98-108 [facility] Comment on above: Performed By: #### L 503.7505, L501.9520, L100.0100, L500.2500 ####[facility] [address] [place], [address] CO2 [Moles/Vol] 25.1 mmol/L Normal 21.0-32.0 [facility] Comment on above: Performed By: #### L 503.7505, L501.9520, L100.0100, L500.2500 ####[facility] [address] [place], [address] Creatinine [Mass/Vol] 1.08 mg/dL Normal 0.70-1.20 [facility] Comment on above: Performed By: #### L 503.7505, L501.9520, L100.0100, L500.2500 ####[facility] [address] [place], [address] GAP 13 Normal 5-15 [facility] Comment on above: Performed By: #### L 503.7505, L501.9520, L100.0100, L500.2500 ####[facility] [address] [place], [address] GFR/1.73 sq M.predicted among non-blacks MDRD (S/P/Bld) [Vol rate/Area] 51 mL/min/{1.73_m2} Low >60 [facility] Comment on above: Result Comment: mL/m in/1.73m2 CKD-EPI Creatinine Equation (2020) Performed By: #### L 503.7505, L501.9520, L100.0100, L500.2500 ####[facility] [address] [place], [address] Glucose [Mass/Vol] 108 mg/dL High 70-99 [facility] Comment on above: Performed By: #### L 503.7505, L501.9520, L100.0100, L500.2500 ####[facility] [address] [place], [address] Potassium [Moles/Vol] 4.3 mmol/L Normal 3.3-5.1 [facility] Comment on above: Performed By: #### L 503.7505, L501.9520, L100.0100, L500.2500 ####[facility] [address] [place], [address] Sodium [Moles/Vol] 138 mmol/L Normal 133-145 [facility] Comment on above: Performed By: #### L 503.7505, L501.9520, L100.0100, L500.2500 ####[facility] [address] [place], [address] Urea nitrogen [Mass/Vol] 34 mg/dL High 4-19 [facility] Comment on above: Performed By: #### L 503.7505, L501.9520, L100.0100, L500.2500 ####[facility] [address] [place], [address] Basophil percentageOrdered B y: Kristal Watkins on 02-05-2025 Basophils/100 WBC (Bld) 0.9 % 0-1 [facility] CBC W/Diff, Automatedon 10-0 Absolute Lymph 1.21 X10 3/uL Normal 0.83-4.51 [facility] Comment on above: Performed By: #### L 503.7505, L501.9520, L100.0100, L500.2500 ####[facility] [address] [place], [address] Absolute Neut 5.6 X10 3/uL Normal 2.0-7.7 [facility] Comment on above: Performed By: #### L 503.7505, L501.9520, L100.0100, L500.2500 ####[facility] [address] [place], [address] Basophils/100 WBC (Bld) 0.9 % Normal 0-1 [facility] Comment on above: Performed By: #### L 503.7505, L501.9520, L100.0100, L500.2500 ####[facility] [address] [place], [address] Eosinophils/100 WBC (Bld) 2.4 % Normal 0-5 [facility] Comment on above: Performed By: #### L 503.7505, L501.9520, L100.0100, L500.2500 ####[facility] [address] [place], [address] Erythrocyte distribution width (RBC) [Ratio] 14.1 % Normal 11.6-14.6 [facility] Comment on above: Performed By: #### L 503.7505, L501.9520, L100.0100, L500.2500 ####[facility] [address] [place], [address] Hematocrit (Bld) [Volume fraction] 36.4 % Low 37-47 [facility] Comment on above: Performed By: #### L 503.7505, L501.9520, L100.0100, L500.2500 ####[facility] [address] [place], [address] Hemoglobin (Bld) [Mass/Vol] 11.9 g/dL Low 12.0-15.0 [facility] Comment on above: Performed By: #### L 503.7505, L501.9520, L100.0100, L500.2500 ####[facility] [address] [place], [address] IG% 0.300 Normal 0.0-0.9 [facility] Comment on above: Result Comment: IG% - Immature Granulocytes (promyelocytes, myelocytes andmetamyelocytes) > 1% indicates that a LEFT SHIFT is Present. Performed By: #### L 503.7505, L501.9520, L100.0100, L500.2500 ####[facility] [address] [place], [address] Lymphocytes/100 WBC (Bld) 15.4 % Low 19-41 [facility] Comment on above: Performed By: #### L 503.7505, L501.9520, L100.0100, L500.2500 ####[facility] [address] [place], [address] MCH (RBC) [Entitic mass] 30.1 pg Normal 27.0-32.0 [facility] Comment on above: Performed By: #### L 503.7505, L501.9520, L100.0100, L500.2500 ####[facility] [address] [place], [address] MCHC (RBC) [Mass/Vol] 32.7 g/dL Normal 32-36 [facility] Comment on above: Performed By: #### L 503.7505, L501.9520, L100.0100, L500.2500 ####[facility] [address] [place], [address] MCV (RBC) [Entitic vol] 91.9 fL Normal 81-99 [facility] Comment on above: Performed By: #### L 503.7505, L501.9520, L100.0100, L500.2500 ####[facility] [address] [place], [address] Monocytes/100 WBC (Bld) 10.4 % High 0-10 [facility] Comment on above: Performed By: #### L 503.7505, L501.9520, L100.0100, L500.2500 ####[facility] [address] [place], [address] Neutrophils/100 WBC (Bld) 70.6 % High 47-70 [facility] Comment on above: Performed By: #### L 503.7505, L501.9520, L100.0100, L500.2500 ####[facility] [address] [place], [address] Nucleated RBC (Bld) [#/Vol] 0 10*3/uL Normal 0-5 [facility] Comment on above: Performed By: #### L 503.7505, L501.9520, L100.0100, L500.2500 ####[facility] [address] [place], [address] Platelet mean volume (Bld) [Entitic vol] 10.5 fL Normal 6.2-12.0 [facility] Comment on above: Performed By: #### L 503.7505, L501.9520, L100.0100, L500.2500 ####[facility] [address] [place], [address] Platelets (Bld) [#/Vol] 216 10*3/uL Normal 150-450 [facility] Comment on above: Performed By: #### L 503.7505, L501.9520, L100.0100, L500.2500 ####[facility] [address] [place], [address] RBC (Bld) [#/Vol] 3.96 10*6/uL Low 4.2-5.4 [facility] Comment on above: Performed By: #### L 503.7505, L501.9520, L100.0100, L500.2500 ####[facility] [address] [place], [address] RDW SD 47.8 fl High 35.1-43.9 [facility] Comment on above: Performed By: #### L 503.7505, L501.9520, L100.0100, L500.2500 ####[facility] [address] [place], [address] WBC (Bld) [#/Vol] 7.9 10*3/uL Normal 4.4-11.0 [facility] Comment on above: Performed By: #### L 503.6399, L501.7001, L100.0100, L500.2500 ####[facility] [address] [place], [address] Carbon dioxide, total [Moles /volume] in Central venous bloodOrdered By: Kristal Watkins on 02-05-2025 CO2 [Moles/Vol] 25.1 mmol/L 21.0-32.0 [facility] Cardiology Visit Reporton Cardiology Visit Report Normal [facility] Chest PA and Lateralon 02-05 Chest PA and Lateral Normal [facility] Chloride assayOrdered By: Tylor Watkins on 02-05-2025 Chloride [Moles/Vol] 100 mmol/L 98-108 [facility] Eosinophil percentageOrdered By: Kristal Watkins on 02-05-2025 Eosinophils/100 WBC (Bld) 2.4 % 0-5 [facility] Erythrocyte distribution wid th ratioOrdered By: Kristal Watkins on 02-05-2025 Erythrocyte distribution width (RBC) [Ratio] 14.1 % 11.6-14.6 [facility] Erythrocyte distribution wid th standard deviationOrdered By: Kristal Watkins on 02-05-2025 Erythrocyte distribution width (RBC) [Ratio] 47.8 fl High 35.1-43.9 [facility] Glomerular filtration rate ( GFR) estimation/1.73 sq m using serum, plasma, or whole bOrdered By: Kristal Watkins on 02-05-2025 GFR/1.73 sq M.predicted among non-blacks MDRD (S/P/Bld) [Vol rate/Area] 51 mL/min/{1.73_m2} Low >60 [facility] Hematocrit Auto (Bld) [Volum e fraction]Ordered By: Kristal Watkins on 02-05-2025 Hematocrit (Bld) [Volume fraction] 36.4 % Low 37-47 [facility] Hemoglobin measurementOrdere d By: Kristal Watkins on 02-05-2025 Hemoglobin (Bld) [Mass/Vol] 11.9 g/dL Low 12.0-15.0 [facility] Immature granulocytes/100 WB C Auto (Bld)Ordered By: Kristal Watkins on 02-05-2025 Immature granulocytes/100 WBC (Bld) 0.300 % 0.0-0.9 [facility] MCV (mean corpuscular volume ) determinationOrdered By: Kristal Watkins on 02-05-2025 MCV (RBC) [Entitic vol] 91.9 fL 81-99 [facility] Mean corpuscular hemoglobin (MCH) determinationOrdered By: Kristal Watkins on 02-05-2025 MCH (RBC) [Entitic mass] 30.1 pg 27.0-32.0 [facility] Monocyte percentageOrdered B y: Kristal Watkins on 02-05-2025 Monocytes/100 WBC (Bld) 10.4 % High 0-10 [facility] Natriuretic peptide.B prohor carmelita N-Terminal [Mass/volume] in Serum or PlasmaOrdered By: Kristal Watkins on 02-05-2025 Natriuretic peptide.B prohormone N-Terminal [Mass/Vol] 310 pg/mL <1800 [facility] Neutrophil percentageOrdered By: Kristal Watkins on 02-05-2025 Neutrophils/100 WBC (Bld) 70.6 % High 47-70 [facility] Pacemaker Checkon 02-05-2025 Pacemaker Check Normal [facility] Platelet countOrdered By: Tylor Watkins on 02-05-2025 Platelets (Bld) [#/Vol] 216 10*3/uL 150-450 [facility] Potassium measurement (mass/ volume)Ordered By: Kristal Watkins on 02-05-2025 Potassium (Unsp spec) [Mass/Vol] 4.3 mmol/L 3.3-5.1 [facility] Pro- Brain NATRIURETIC PEPTI Kenyatta 02-05-2025 Natriuretic peptide B (Bld) [Mass/Vol] 310 pg/mL Normal <=1800 [facility] Comment on above: Result Comment: Hear t Failure Unlikely: < 300 pg/mLHeart Failure Likely< 50 Years: > 450 pg/mL50-75 Years: > 900 pg/mL>75 Years: > 1800 pg/mL Performed By: #### L 503.0691, L501.3220, L100.0100, L500.2500 ####[facility] [address] [place], [place], [id number] RBC Auto (Bld) [#/Vol]Ordere d By: Kristal Watkins on 02-05-2025 RBC (Bld) [#/Vol] 3.96 10*6/uL Low 4.2-5.4 [facility] Serum creatinine measurement (mass/volume)Ordered By: Kristal Watkins on 02-05-2025 Creatinine [Mass/Vol] 1.08 mg/dL 0.70-1.20 [facility] Serum glucose measurement (m ass/volume)Ordered By: Kristal Watkins on 02-05-2025 Glucose [Mass/Vol] 108 mg/dL High 70-99 [facility] Serum or plasma calcium julee urement (mass/volume)Ordered By: Krsital Watkins on 02-05-2025 Calcium [Mass/Vol] 9.5 mg/dL 7.6-11.0 [facility] Serum or plasma urea nitroge n measurement (mass/volume)Ordered By: Kristal Watkins on 02-05-2025 Urea nitrogen [Mass/Vol] 34 mg/dL High 4-19 [facility] Sodium levelOrdered By: Samira Watkins on 02-05-2025 Sodium [Moles/Vol] 138 mmol/L 133-145 [facility] TSH DL <= 0.005 mIU/L QnOrde red By: Kristal Watkins on 02-05-2025 TSH Qn 3.860 uIU/mL 0.300-4.200 [facility] Thyroid Stim Hormone (TSH)on 02-05-2025 TSH 3.860 uIU/mL Normal 0.300-4.200 [facility] Comment on above: Performed By: #### L 503.7505, L501.9520, L100.0100, L500.2500 ####[facility] [address] [place], [place], [id number] White blood cell (WBC) count Ordered By: Kristal Watkins on 02-05-2025 WBC (Bld) [#/Vol] 7.9 10*3/uL 4.4-11.0 [facility] OPERATIVE NOon 01-31-2025 OPERATIVE NO HNO ID: [id number] Author: NOEMY HAIRSTON MD Service: Pulmonary Disease Author Type: Physician Type: Operative Report Filed: 01/31/2025 08:18 Note Text: Patient Name: Michael Meier Patient Date of Procedure: January 31, 2025 Time of Procedure: 8:14 AM UNIVERSAL PROTOCOL / SAFETY CHECKLIST Procedure to be performed: Right Heart Catheterization Sign in Communication: completed Time Out: Team Confirms the Correct Patient, Correct Procedure, Correct Site and Site Marking, Correct Position (if applicable). Time: 8:14 AM Affirmation of Time Out: YES Sign Out Discussion: Completed Procedure start time: 7:20 AM Procedure end time: 8:00 AM Staff involved: Noemy Hairston MD Procedure(s): Right Heart Catheterization. Right Heart Catheterization Indications: Evaluation of Pulmonary Hypertension / Disease of Pulmonary Circulation Pre Procedure Diagnosis: Pulmonary Hypertension Post Procedure Diagnosis: Postcapillary Pulmonary Hypertension PH Medications: None Diuretics : Lasix 20 mg daily Spironolactone 25 mg daily Access site: R Internal jugular vein Ivins Josefina size: 7.5 F. Anesthesia: Lidocaine 1% Procedure Narrative: Consent was obtained. Time out taken. Performed at procedure room in [facility] Interventional Regulatory Affairs Specialist Under sterile condition, lidocaine 1 % (5 ml) was applied and under US guidance a 8.0 F introducer was inserted without difficulty. Wire was noted to be located in the SVC under fluoroscopy. A Ivins-Josefina catheter was advanced to RIGHT pulmonary artery without difficulties (RA, RV, PA pressures were measured). Wedge was obtained and confirmed to be appropriate by fluoroscopy (stable catheter) and blood gas analysis. Mixed venous blood was obtained for indirect Nataly determination. CO was determined by thermodilution and indirect Nataly methodology. Additional Maneuvers: None. Disposition: Discharge Home RHC determinations Determinations Result Units Rhythm NSR Inspired fraction of oxygen 21.00 % Oxygen flow 0.00 L/min SpO2 100.00 % Systolic BP 121.00 mmHg Diastolic BP 43.00 mmHg Mean BP 69.00 mmHg Heart Rate 60.00 bpm Height 165.10 cm Weight 105.70 Kg Body surface area 2.11 m2 Body mass index 38.78 kg/m2 Right atrial pressure (mean) 3.00 mmHg Right atrial pressure (mean) peak "v" wave (end-expiration) 5.00 Right ventricular systolic pressure 44.00 mmHg Right ventricular diastolic pressure 10.00 mmHg Systolic pulmonary artery pressure 40.00 mmHg Mean pulmonary artery pressure 27.00 mmHg Diastolic pulmonary artery pressure 20.00 mmHg Pumonary artery pulse pressure 20.00 mmHg Pulmonary artery occlusion pressure (mean) 13.00 mmHg Pulmonary artery occlusion pressure (end-expiration) mid "a" wave 16.00 mmHg Pulmonary artery occlusion pressure (end-expiration) peak "v" wave 25.00 mmHg Diastolic pulmonary gradient 4.00 mmHg Transpulmonary gradient 11.00 mmHg Pulmonary artery capacitance 5.14 mL/mmHg Cardiac output (thermodilution) 6.17 L/min Cardiac index (thermodilution) 2.92 L/min/m2 Cardiac output (indirect NATALY) 6.86 L/min Cardiac index (indirect NATALY) 3.25 L/min/m2 Systemic vascular resistance 855.75 dynes/sec/cm5 Stroke volume 102.83 mL Stroke volume index 48.72 mL/m2 Right ventricular stroke work index 15.90 g*m/m2 Pulmonary vascular resistance 1.78 Wood Units Hemoglobin (mixed venous) 10.40 g/dL Arterial oxyhemoglobin 97.40 % Mixed venous oxyhemoglobin 70.20 % Lactic acid (arterial) NA mmol/L Abbreviated version Right atrial pressure (mean) 3.00 mmHg Mean pulmonary artery pressure 27.00 mmHg Pulmonary artery occlusion pressure (end-expiration) mid "a" wave 16.00 mmHg Cardiac index (thermodilution) 2.92 L/min/m2 Pulmonary vascular resistance 1.78 Wood Units Mixed venous oxyhemoglobin 70.20 % WAVEFORMS: Right Atrial Pressure: Pulmonary Artery Pressure: PAWP: RV PullBack: Estimated Blood Loss: Scant Specimens: Mixed venous blood gases. Complications: None. + Marked anxiety throughout the procedure. Introducer removed without complications. Pressure applied for 10 minutes. 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 Borderline elevated PAWP associated with prominent V-waves indicative of underlying impaired LA filling/diastolic impairment. Moderate anemia. Plan: F/U with Dr Alcala. Low salt in the diet. Ongoing gentle diuresis. Weight loss. BP control. Evaluation and management of underlying anemia. No indication for pulmonary vasodilator therapy given lack of precapillary pathophysiology Normal [facility] Absolute lymphocyte countOrd ered By: [facility] Karen Johnson on 01-23-2025 Lymphocytes Auto (Unsp spec) [#/Vol] 1.34 10*3/uL 0.83-4.51 [facility] Anion gap in Serum or Plasma Ordered By: [facility] Karen Johnson on 01-23-2025 Anion gap [Moles/Vol] 16 mmol/L High 5-15 [facility] Automated lymphocyte count a s percentage of total leukocytesOrdered By: [facility] Karen Johnson on 01-23-2025 Lymphocytes/100 WBC Auto (Unsp spec) 14.0 % Low 19-41 [facility] BUN/creatinine ratioOrdered By: [facility] Karen Johnson on 01-23-2025 Urea nitrogen/Creatinine [Mass ratio] 34.1 mg/mg High 10-20 [facility] Basic Metabolic Profile (BMP )on 01-23-2025 BUN/CRE 34.1 RATIO High - [facility] Comment on above: Performed By: #### L 503.6030, L100.0100, L503.0106, L500.2500 ####[facility] [address] [place], [address] Calcium [Mass/Vol] 9.5 mg/dL Normal 7.6-11.0 [facility] Comment on above: Performed By: #### L 503.6030, L100.0100, L503.0106, L500.2500 ####[facility] [address] [place], [address] Chloride [Moles/Vol] 100 mmol/L Normal 98-108 [facility] Comment on above: Performed By: #### L 503.6030, L100.0100, L503.0106, L500.2500 ####[facility] [address] [place], [address] CO2 [Moles/Vol] 21.4 mmol/L Normal 21.0-32.0 [facility] Comment on above: Performed By: #### L 503.6030, L100.0100, L503.0106, L500.2500 ####[facility] [address] [place], [address] Creatinine [Mass/Vol] 1.30 mg/dL High 0.70-1.20 [facility] Comment on above: Performed By: #### L 503.6030, L100.0100, L503.0106, L500.2500 ####[facility] [address] [place], [address] GAP 16 High 5-15 [facility] Comment on above: Performed By: #### L 503.6030, L100.0100, L503.0106, L500.2500 ####[facility] [address] [place], [address] GFR/1.73 sq M.predicted among non-blacks MDRD (S/P/Bld) [Vol rate/Area] 41 mL/min/{1.73_m2} Low >60 [facility] Comment on above: Result Comment: mL/m in/1.73m2 CKD-EPI Creatinine Equation (2020) Performed By: #### L 503.6030, L100.0100, L503.0106, L500.2500 ####[facility] [address] [place], [address] Glucose [Mass/Vol] 83 mg/dL Normal 70-99 [facility] Comment on above: Performed By: #### L 503.6030, L100.0100, L503.0106, L500.2500 ####[facility] [address] [place], [address] Potassium [Moles/Vol] 4.5 mmol/L Normal 3.3-5.1 [facility] Comment on above: Result Comment: Hemo lysis present, Results??could be affected.?? Performed By: #### L 503.6030, L100.0100, L503.0106, L500.2500 ####[facility] [address] [place], [address] Sodium [Moles/Vol] 137 mmol/L Normal 133-145 [facility] Comment on above: Performed By: #### L 503.6030, L100.0100, L503.0106, L500.2500 ####[facility] [address] [place], [address] Urea nitrogen [Mass/Vol] 44 mg/dL High 4-19 [facility] Comment on above: Performed By: #### L 503.6030, L100.0100, L503.0106, L500.2500 ####[facility] [address] [place], [address] Basophil percentageOrdered B y: [facility] Karen Johnson on 01-23-2025 Basophils/100 WBC (Bld) 0.9 % 0-1 [facility] Blood manual differential co mment interpretation (narrative result)Ordered By: [facility] Karen Johnson on 01-23-2025 Manual differential comment Mich (Bld) [Interp] SCANNED [facility] CBC W/Diff, Automatedon 01-02 SMEAR COMMENT SCANNED Normal [facility] Comment on above: Performed By: #### L 503.6030, L100.0100, L503.0106, L500.2500 ####[facility] [address] [place], [address] PLT EST ADEQUATE Normal ADEQ [facility] Comment on above: Performed By: #### L 503.6030, L100.0100, L503.0106, L500.2500 ####[facility] [address] [place], [address] Carbon dioxide, total [Moles /volume] in Central venous bloodOrdered By: JACOBO Johnson on 01-23-2025 CO2 [Moles/Vol] 21.4 mmol/L 21.0-32.0 [facility] Chloride assayOrdered By: Marilee Johnson on 01-23-2025 Chloride [Moles/Vol] 100 mmol/L 98-108 [facility] Eosinophil percentageOrdered By: [facility] Karen Alex on 01-23-2025 Eosinophils/100 WBC (Bld) 2.7 % 0-5 [facility] Erythrocyte distribution wid th ratioOrdered By: [facility] on 01-23-2025 Erythrocyte distribution width (RBC) [Ratio] 14.6 % 11.6-14.6 [facility] Erythrocyte distribution wid th standard deviationOrdered By: [facility] Alex on 01-23-2025 Erythrocyte distribution width (RBC) [Ratio] 51.6 fl High 35.1-43.9 [facility] Glomerular filtration rate ( GFR) estimation/1.73 sq m using serum, plasma, or whole bOrdered By: [facility] Alex on 01-23-2025 GFR/1.73 sq M.predicted among non-blacks MDRD (S/P/Bld) [Vol rate/Area] 41 mL/min/{1.73_m2} Low >60 [facility] Hematocrit Auto (Bld) [Volum e fraction]Ordered By: [facility]aren[facility]izbeth Johnson on 01-23-2025 Hematocrit (Bld) [Volume fraction] 37.7 % 37-47 [facility] Hemoglobin measurementOrdere d By: [facility] Karen Alex on 01-23-2025 Hemoglobin (Bld) [Mass/Vol] 12.5 g/dL 12.0-15.0 [facility] Immature granulocytes/100 WB C Auto (Bld)Ordered By: [facility] Johnson on 01-23-2025 Immature granulocytes/100 WBC (Bld) 0.300 % 0.0-0.9 [facility] Iron measurement (mass/mass) Ordered By: [facility] on 01-23-2025 Iron (Unsp spec) [Mass/Mass] 105 ug/dL 50-170 [facility] Iron+Iron Binding Capacityon 01-23-2025 Iron [Mass/Vol] 105 ug/dL Normal 50-170 [facility] Comment on above: Performed By: #### L 503.6030, L100.0100, L503.0106, L500.2500 ####[facility] [address] [place], [address] IRON SATURATION 26.1 Normal 13-59 [facility] Comment on above: Performed By: #### L 503.6030, L100.0100, L503.0106, L500.2500 ####[facility] [address] [place], [address] TIBC 402 ug/dL Normal 250-450 [facility] Comment on above: Performed By: #### L 503.6030, L100.0100, L503.0106, L500.2500 ####[facility] [address] [place], [address] UIBC 297 ug/dL Normal 228-428 [facility] Comment on above: Performed By: #### L 503.6030, L100.0100, L503.0106, L500.2500 ####[facility] [address] [place], [address] MCV (mean corpuscular volume ) determinationOrdered By: [facility] Karen Johnson on 01-23-2025 MCV (RBC) [Entitic vol] 94.7 fL 81-99 [facility] Mean corpuscular hemoglobin (MCH) determinationOrdered By: JACOBO Johnson on 01-23-2025 MCH (RBC) [Entitic mass] 31.4 pg 27.0-32.0 [facility] Monocyte percentageOrdered B y: JACOBO Johnson on 01-23-2025 Monocytes/100 WBC (Bld) 10.4 % High 0-10 [facility] Neutrophil percentageOrdered By: [facility] Karen Johnson on 01-23-2025 Neutrophils/100 WBC (Bld) 71.7 % High 47-70 [facility] No Panel InformationOrdered By: JACOBO Johnson on 01-23-2025 297 ug/dL 228-428 [facility] Platelet countOrdered By: MAYRA Johnson on 01-23-2025 Platelet count TNP [facility] Platelet estimateOrdered By: JACOBO Johnson on 01-23-2025 Platelets LM Ql (Bld) ADEQUATE ADEQ [facility] Potassium measurement (mass/ volume)Ordered By: [facility] Karen Johnson on 01-23-2025 Potassium (Unsp spec) [Mass/Vol] 4.5 mmol/L 3.3-5.1 [facility] RBC Auto (Bld) [#/Vol]Ordere d By: [facility] Karen Johnson on 01-23-2025 RBC (Bld) [#/Vol] 3.98 10*6/uL Low 4.2-5.4 [facility] Serum creatinine measurement (mass/volume)Ordered By: [facility] Johnson on 01-23-2025 Creatinine [Mass/Vol] 1.30 mg/dL High 0.70-1.20 [facility] Serum glucose measurement (m ass/volume)Ordered By: [facility] Karen Johnson on 01-23-2025 Glucose [Mass/Vol] 83 mg/dL 70-99 [facility] Serum or plasma calcium julee urement (mass/volume)Ordered By: [facility] Karen Johnson on 01-23-2025 Calcium [Mass/Vol] 9.5 mg/dL 7.6-11.0 [facility] Serum or plasma iron saturat ion measurement (mass fraction)Ordered By: [facility] Johnson on 01-23-2025 Iron saturation [Mass fraction] 26.1 % 13-59 [facility] Serum or plasma urea nitroge n measurement (mass/volume)Ordered By: [facility] Johnson on 01-23-2025 Urea nitrogen [Mass/Vol] 44 mg/dL High 4-19 [facility] Sodium levelOrdered By: [facility] Johnson on 01-23-2025 Sodium [Moles/Vol] 137 mmol/L 133-145 [facility] Vitamin B12on 01-23-2025 Cobalamin (Vitamin B12) [Mass/Vol] 1144 pg/mL High 180-914 [facility] Comment on above: Performed By: #### L 503.6044, L100.0100, L503.0106, L500.2500 ####[facility] [address] [place], [address] Vitamin B12 ser/plasOrdered By: [facility] Karen Johnson on 01-23-2025 Cobalamin (Vitamin B12) [Mass/Vol] 1144 pg/mL High 180-914 [facility] White blood cell (WBC) count Ordered By: [facility] Karen Johnson on 01-23-2025 WBC (Bld) [#/Vol] 9.6 10*3/uL 4.4-11.0 [facility] CNOVon 01-12-2025 CNOV Office Visit (PUHWCB ) MICHAEL MEIER ([id number]) 1940 F Date Time Provider Department 01/12/25 10:45 AM NOEMY HAIRSTON [facility] During your visit today, we recorded the following information about you: Temperature Pulse Respiration Blood pressure 95.3 degrees 60/minute 18/minute 121/63 Weight Height 106.1 kg 1.651 m Noemy Hairston MD 01/12/2025 11:07 AM Signed Patient Name: Michael Meier PRIMARY CARE PHYSICIAN: Michael Puga DO Date of visit: January 12, 2025 COMMUNICATION WILL BE SENT VIA SHARED MEDICAL RECORDS OR US MAIL. Subjective: Michael Meier is a 84 year old female who is new to this clinic for evaluation of exertional dyspnea and possible pulmonary hypertension. This is a referral from Dr Owen Alcala. In brief summary, patient with PMH significant for allergic rhinitis, AF on amiodarone, melanoma, JOSE not tolerant of CPAP, CVA, HTN, HLD being referred for evaluation of SOB and abnormal PFTs. She started the visit by stating she has history of pulmonary hypertension in which she received the diagnosis 2 years ago. Denies history of lung disease otherwise, as no hx of asthma or COPD . She is lifelong non smoker. With regards to symptoms, she endorses severe exertional dyspnea. Minimal activities such as short walks around her house, getting dressed, taking shower, as well as additional ADLs. Thus pretty much any minimal exertion results in dyspnea. Currently does not need supplemental O2 (recently tested). Denies chest pain, palpitations, LH/syncope, fevers, chills, or NS. She did have pedal edema recently, but this resolved with lasix regimen (see below). She tells me she was recently hospitalized (sent from Dr Pineda office) for acute shortness of breath. She was sent to hospital due to severe respiratory distress in which she was hospitalized for 3 days. She was told she was having a heart failure exacerbation. She endorses low sodium diet. Works with PT as form of exercise. Was on trial of prn albuterol, but no improvement in symptoms. Was referred here for RHC evaluation. QUESTIONS SURROUNDING PULMONARY HYPERTENSION RISK: Prior diet pill use? Yes - many - doesn't recall names Prior use of amphetamines? No H/o DVT or PE? No Prior liver disease? No Prior HIV/Hepatitis B or C risk? No H/o splenectomy? No Prior thyroid disease? Hypothyroidism on synthroid Prior lung disease? No, although did have pneumonia years ago Family h/o PAH?No Snoring or witnessed apneas? Yes - JOSE on PAP Arthralgias? Yes - hips, back, neck, spinal stenosis Skin rash or lesions? No Raynaud's symptoms? No PMHx: PAST MEDICAL HISTORY Diagnosis Date A-fib (HCC) Allergic rhinitis, cause unspecified Arrhythmia Arthritis Greater trochanteric bursitis of left hip Melanoma of skin, site unspecified 2003 back Osteoarthritis of left hip Other and unspecified hyperlipidemia Pulmonary hypertension (HCC) Situational mixed anxiety and depressive disorder Sleep apnea Stroke (HCC) Unspecified essential hypertension Unspecified gastritis and gastroduodenitis MEDICATIONS: losartan (COZAAR) 100 mg tablet Take 100 mg by mouth once daily. furosemide (LASIX) 20 mg tablet Take 20 mg by mouth once daily. spironolactone (ALDACTONE) 25 mg tablet Take 25 mg by mouth once daily. sertraline (ZOLOFT) 25 mg tablet Take 25 [...] by mouth once daily. Take with food. blood sugar diagnostic test strip Use with blood glucose test 2 times daily, Insulin Dep? No Lancets Use with blood glucose test 2 times daily. Insulin Dep? No alcohol swabs Use with blood glucose test 2 times daily. Insulin Dep? No levothyroxine (SYNTHROID) 50 mcg tablet Take 1 [...] day at 6 am and 9 pm. RESTASIS 0.05 % ophthalmic emulsion Azelastine HCl (OPTIVAR) 0.05 % ophthalmic solution aspirin, enteric coated (ASPIRIN, ENTERIC COATED) 81 mg EC tablet Take 81 mg by mouth once daily. PACERONE 200 mg tablet Take 200 mg by mouth once daily. ubidecarenone (COQ-10 ORAL) Take by mouth. diltiazem CD (CARDIZEM CD) 240 mg 24 hr capsule Take (more content not included)... Normal [facility] Anion gap in Serum or Plasma Ordered By: [facility] Karen Johnson on 01-05-2025 Anion gap [Moles/Vol] 13 mmol/L 09-14 [facility] BUN/creatinine ratioOrdered By: [facility] Karen Johnson on 01-05-2025 Urea nitrogen/Creatinine [Mass ratio] 19.4 mg/mg 02-19 [facility] Basic Metabolic Profile (BMP )on 01-05-2025 BUN/CRE 19.4 RATIO Normal 02-19 [facility] Comment on above: Performed By: #### L 500.2500 ####[facility] [address] [place], [place], [id number] GAP 13 Normal 09-14 [facility] Comment on above: Performed By: #### L 500.2500 ####[facility] [address] [place], [place], [id number] Potassium [Moles/Vol] 3.9 mmol/L Normal 3.3-5.1 [facility] Comment on above: Performed By: #### L 500.2500 ####[facility] [address] [place], [address] Carbon dioxide, total [Moles /volume] in Central venous bloodOrdered By: [facility] Karen Johnson on 01-05-2025 CO2 [Moles/Vol] 26.4 mmol/L Normal 21.0-32.0 [facility] Comment on above: Performed By: #### L 500.2500 ####[facility] [address] [place], [address] Chloride assayOrdered By: [facility] Karen Johnson on 01-05-2025 Chloride [Moles/Vol] 100 mmol/L Normal 98-108 [facility] Comment on above: Performed By: #### L 500.2500 ####[facility] [address] [place], [place], [phone] Glomerular filtration rate ( GFR) estimation/1.73 sq m using serum, plasma, or whole bOrdered By: [facility] Karen Johnson on 01-05-2025 GFR/1.73 sq M.predicted among non-blacks MDRD (S/P/Bld) [Vol rate/Area] 42 mL/min/{1.73_m2} Low >60 [facility] Comment on above: Result Comment: mL/m in/1.73m2 CKD-EPI Creatinine Equation (2020) Performed By: #### L 500.2500 ####[facility] [address] [place], [place], [phone] Potassium measurement (mass/ volume)Ordered By: [facility] Karen Johnson on 01-05-2025 Potassium (Unsp spec) [Mass/Vol] 3.9 mmol/L 3.3-5.1 [facility] Serum creatinine measurement (mass/volume)Ordered By: [facility] on 01-05-2025 Creatinine [Mass/Vol] 1.27 mg/dL High 0.70-1.20 [facility] Comment on above: Performed By: #### L 500.2500 ####[facility] [address] [place], [place], [phone] Serum glucose measurement (m ass/volume)Ordered By: [facility] on 01-05-2025 Glucose [Mass/Vol] 106 mg/dL High 70-99 [facility] Comment on above: Performed By: #### L 500.2500 ####[facility] [address] [place], [place], [phone] Serum or plasma calcium julee urement (mass/volume)Ordered By: [facility] on 01-05-2025 Calcium [Mass/Vol] 9.4 mg/dL Normal 7.6-11.0 [facility] Comment on above: Performed By: #### L 500.2500 ####[facility] [address] [place], [place], [phone] Serum or plasma urea nitroge n measurement (mass/volume)Ordered By: [facility] on 01-05-2025 Urea nitrogen [Mass/Vol] 25 mg/dL High 4-19 [facility] Comment on above: Performed By: #### L 500.2500 ####[facility] [address] [place], [place], [address] Sodium levelOrdered By: [facility] on 01-05-2025 Sodium [Moles/Vol] 139 mmol/L Normal 133-145 [facility] Comment on above: Performed By: #### L 500.2500 ####[facility] [address] [place], [place], [id number] Anion gap in Serum or Plasma Ordered By: Jonny Vicente on 01-01-2025 Anion gap [Moles/Vol] 13 mmol/L 5-15 [facility] BUN/creatinine ratioOrdered By: Jonny Vicente on 01-01-2025 Urea nitrogen/Creatinine [Mass ratio] 23.4 mg/mg High - [facility] Basic Metabolic Profile (BMP )on 01-01-2025 BUN/CRE 23.4 RATIO High - [facility] Comment on above: Performed By: #### L 500.2500 ####[facility] [address] [place], [address] Calcium [Mass/Vol] 9.0 mg/dL Normal 7.6-11.0 [facility] Comment on above: Performed By: #### L 500.2500 ####[facility] [address] [place], [address] Chloride [Moles/Vol] 102 mmol/L Normal 98-108 [facility] Comment on above: Performed By: #### L 500.2500 ####[facility] [address] [place], [address] CO2 [Moles/Vol] 26.9 mmol/L Normal 21.0-32.0 [facility] Comment on above: Performed By: #### L 500.2500 ####[facility] [address] [place], [address] Creatinine [Mass/Vol] 1.10 mg/dL Normal 0.70-1.20 [facility] Comment on above: Performed By: #### L 500.2500 ####[facility] [address] [place], [address] ECRCL 48.06 ml/min Low 50-250 [facility] Comment on above: Performed By: #### L 500.2500 ####[facility] [address] [place], [address] GAP 13 Normal -15 [facility] Comment on above: Performed By: #### L 500.2500 ####[facility] [address] [place], [address] GFR/1.73 sq M.predicted among non-blacks MDRD (S/P/Bld) [Vol rate/Area] 50 mL/min/{1.73_m2} Low >60 [facility] Comment on above: Result Comment: mL/m in/1.73m2 CKD-EPI Creatinine Equation (2020) Performed By: #### L 500.2500 ####[facility] [address] [place], [address] Glucose [Mass/Vol] 112 mg/dL High 70-99 [facility] Comment on above: Performed By: #### L 500.2500 ####[facility] [address] [place], [address] Potassium [Moles/Vol] 3.7 mmol/L Normal 3.3-5.1 [facility] Comment on above: Result Comment: Hemo lysis present, Results??could be affected.?? Performed By: #### L 500.2500 ####[facility] [address] [place], [address] Sodium [Moles/Vol] 141 mmol/L Normal 133-145 [facility] Comment on above: Performed By: #### L 500.2500 ####[facility] [address] [place], [address] Urea nitrogen [Mass/Vol] 26 mg/dL High 4-19 [facility] Comment on above: Performed By: #### L 500.2500 ####[facility] [address] [place], [address] Carbon dioxide, total [Moles /volume] in Central venous bloodOrdered By: Jonny Vicente on 01-01-2025 CO2 [Moles/Vol] 26.9 mmol/L 21.0-32.0 [facility] Chloride assayOrdered By: Alyson Vicente on 01-01-2025 Chloride [Moles/Vol] 102 mmol/L 98-108 [facility] Discharge Instructionon 09-0 Discharge Instruction Normal [facility] Glomerular filtration rate ( GFR) estimation/1.73 sq m using serum, plasma, or whole bOrdered By: Jonny Vicente on 01-01-2025 GFR/1.73 sq M.predicted among non-blacks MDRD (S/P/Bld) [Vol rate/Area] 50 mL/min/{1.73_m2} Low >60 [facility] Potassium measurement (mass/ volume)Ordered By: Jonny Vicente on 01-01-2025 Potassium (Unsp spec) [Mass/Vol] 3.7 mmol/L 3.3-5.1 [facility] Serum creatinine measurement (mass/volume)Ordered By: Jonny Vicente on 01-01-2025 Creatinine [Mass/Vol] 1.10 mg/dL 0.70-1.20 [facility] Serum glucose measurement (m ass/volume)Ordered By: Jonny Vicente on 01-01-2025 Glucose [Mass/Vol] 112 mg/dL High 70-99 [facility] Serum or plasma calcium julee urement (mass/volume)Ordered By: Jonny Vicente on 01-01-2025 Calcium [Mass/Vol] 9.0 mg/dL 7.6-11.0 [facility] Serum or plasma urea nitroge n measurement (mass/volume)Ordered By: Jonny Vicente on 01-01-2025 Urea nitrogen [Mass/Vol] 26 mg/dL High 4-19 [facility] Sodium levelOrdered By: Timmy Vicente on 01-01-2025 Sodium [Moles/Vol] 141 mmol/L 133-145 [facility] Absolute lymphocyte countOrd ered By: Jonny Vicente on 12-31-2024 Lymphocytes Auto (Unsp spec) [#/Vol] 1.26 10*3/uL 0.83-4.51 [facility] Automated lymphocyte count a s percentage of total leukocytesOrdered By: Jonny Vicente on 12-31-2024 Lymphocytes/100 WBC Auto (Unsp spec) 16.5 % Low 19-41 [facility] Basic Metabolic Profile (BMP )on 12-31-2024 CO2 [Moles/Vol] 26.7 mmol/L Normal 21.0-32.0 [facility] Comment on above: Performed By: #### L 500.2500, L100.0100 ####[facility] [address] [place], [address] GAP 13 Normal 5-15 [facility] Comment on above: Performed By: #### L 500.2500, L100.0100 ####[facility] [address] [place], [address] BUN/CRE 19.2 RATIO Normal 10-20 [facility] Comment on above: Performed By: #### L 500.2500, L100.0100 ####[facility] [address] [place], [address] Calcium [Mass/Vol] 8.7 mg/dL Normal 7.6-11.0 [facility] Comment on above: Performed By: #### L 500.2500, L100.0100 ####[facility] [address] [place], [address] Chloride [Moles/Vol] 103 mmol/L Normal 98-108 [facility] Comment on above: Performed By: #### L 500.2500, L100.0100 ####[facility] [address] [place], [address] Creatinine [Mass/Vol] 1.11 mg/dL Normal 0.70-1.20 [facility] Comment on above: Performed By: #### L 500.2500, L100.0100 ####[facility] [address] [place], [address] ECRCL 47.50 ml/min Low 50-250 [facility] Comment on above: Performed By: #### L 500.2500, L100.0100 ####[facility] [address] [place], [address] GFR/1.73 sq M.predicted among non-blacks MDRD (S/P/Bld) [Vol rate/Area] 49 mL/min/{1.73_m2} Low >60 [facility] Comment on above: Result Comment: mL/m in/1.73m2 CKD-EPI Creatinine Equation (2020) Performed By: #### L 500.2500, L100.0100 ####[facility] [address] [place], [address] Glucose [Mass/Vol] 105 mg/dL High 70-99 [facility] Comment on above: Performed By: #### L 500.2500, L100.0100 ####[facility] [address] [place], [address] Potassium [Moles/Vol] 3.2 mmol/L Low 3.3-5.1 [facility] Comment on above: Performed By: #### L 500.2500, L100.0100 ####[facility] [address] [place], [address] Sodium [Moles/Vol] 142 mmol/L Normal 133-145 [facility] Comment on above: Performed By: #### L 500.2500, L100.0100 ####[facility] [address] [place], [address] Urea nitrogen [Mass/Vol] 21 mg/dL High 4-19 [facility] Comment on above: Performed By: #### L 500.2500, L100.0100 ####[facility] [address] [place], [address] Basophil percentageOrdered B y: Jonny Vicente on 12-31-2024 Basophils/100 WBC (Bld) 0.8 % 0-1 [facility] CBC W/Diff, Automatedon 12-03 Absolute Lymph 1.26 X10 3/uL Normal 0.83-4.51 [facility] Comment on above: Performed By: #### L 500.2500, L100.0100 ####[facility] [address] [place], [address] Absolute Neut 5.1 X10 3/uL Normal 2.0-7.7 [facility] Comment on above: Performed By: #### L 500.2500, L100.0100 ####[facility] [address] [place], [address] Basophils/100 WBC (Bld) 0.8 % Normal 0-1 [facility] Comment on above: Performed By: #### L 500.2500, L100.0100 ####[facility] [address] [place], [address] Eosinophils/100 WBC (Bld) 2.7 % Normal 0-5 [facility] Comment on above: Performed By: #### L 500.2500, L100.0100 ####[facility] [address] [place], [address] Erythrocyte distribution width (RBC) [Ratio] 15.4 % High 11.6-14.6 [facility] Comment on above: Performed By: #### L 500.2500, L100.0100 ####[facility] [address] [place], [address] Hematocrit (Bld) [Volume fraction] 27.4 % Low 37-47 [facility] Comment on above: Performed By: #### L 500.2500, L100.0100 ####[facility] [address] [place], [address] Hemoglobin (Bld) [Mass/Vol] 9.2 g/dL Low 12.0-15.0 [facility] Comment on above: Performed By: #### L 500.2500, L100.0100 ####[facility] [address] [place], [address] IG% 0.400 Normal 0.0-0.9 [facility] Comment on above: Result Comment: IG% - Immature Granulocytes (promyelocytes, myelocytes andmetamyelocytes) > 1% indicates that a LEFT SHIFT is Present. Performed By: #### L 500.2500, L100.0100 ####[facility] [address] [place], [address] Lymphocytes/100 WBC (Bld) 16.5 % Low 19-41 [facility] Comment on above: Performed By: #### L 500.2500, L100.0100 ####[facility] [address] [place], [address] MCH (RBC) [Entitic mass] 31.3 pg Normal 27.0-32.0 [facility] Comment on above: Performed By: #### L 500.2500, L100.0100 ####[facility] [address] [place], [address] MCHC (RBC) [Mass/Vol] 33.6 g/dL Normal 32-36 [facility] Comment on above: Performed By: #### L 500.2500, L100.0100 ####[facility] [address] [place], [address] MCV (RBC) [Entitic vol] 93.2 fL Normal 81-99 [facility] Comment on above: Performed By: #### L 500.2500, L100.0100 ####[facility] [address] [place], [address] Monocytes/100 WBC (Bld) 12.4 % High 0-10 [facility] Comment on above: Performed By: #### L 500.2500, L100.0100 ####[facility] [address] [place], [address] Neutrophils/100 WBC (Bld) 67.2 % Normal 47-70 [facility] Comment on above: Performed By: #### L 500.2500, L100.0100 ####[facility] [address] [place], [address] Nucleated RBC (Bld) [#/Vol] 0 10*3/uL Normal 0-5 [facility] Comment on above: Performed By: #### L 500.2500, L100.0100 ####[facility] [address] [place], [address] Platelet mean volume (Bld) [Entitic vol] 10.5 fL Normal 6.2-12.0 [facility] Comment on above: Performed By: #### L 500.2500, L100.0100 ####[facility] [address] [place], [address] Platelets (Bld) [#/Vol] 234 10*3/uL Normal 150-450 [facility] Comment on above: Performed By: #### L 500.2500, L100.0100 ####[facility] [address] [place], [address] RBC (Bld) [#/Vol] 2.94 10*6/uL Low 4.2-5.4 [facility] Comment on above: Performed By: #### L 500.2500, L100.0100 ####[facility] [address] [place], [address] RDW SD 52.3 fl High 35.1-43.9 [facility] Comment on above: Performed By: #### L 500.2500, L100.0100 ####[facility] [address] [place], [address] WBC (Bld) [#/Vol] 7.7 10*3/uL Normal 4.4-11.0 [facility] Comment on above: Performed By: #### L 500.2500, L100.0100 ####[facility] [address] [place], [address] Eosinophil percentageOrdered By: Jonny Vicente on 12-31-2024 Eosinophils/100 WBC (Bld) 2.7 % 0-5 [facility] Erythrocyte distribution wid th ratioOrdered By: Jonny Vicente on 12-31-2024 Erythrocyte distribution width (RBC) [Ratio] 15.4 % High 11.6-14.6 [facility] Erythrocyte distribution wid th standard deviationOrdered By: Jonny Vicente on 12-31-2024 Erythrocyte distribution width (RBC) [Ratio] 52.3 fl High 35.1-43.9 [facility] Hematocrit Auto (Bld) [Volum e fraction]Ordered By: Jonny Vicente on 12-31-2024 Hematocrit (Bld) [Volume fraction] 27.4 % Low 37-47 [facility] Hemoglobin measurementOrdere d By: Jonny Vicente on 12-31-2024 Hemoglobin (Bld) [Mass/Vol] 9.2 g/dL Low 12.0-15.0 [facility] Immature granulocytes/100 WB C Auto (Bld)Ordered By: Jonny Vicente on 12-31-2024 Immature granulocytes/100 WBC (Bld) 0.400 % 0.0-0.9 [facility] MCV (mean corpuscular volume ) determinationOrdered By: Jonny Vicente on 12-31-2024 MCV (RBC) [Entitic vol] 93.2 fL Invalid Interpretation Code 81-99 [facility] Mean corpuscular hemoglobin (MCH) determinationOrdered By: Jonny Vicente on 12-31-2024 MCH (RBC) [Entitic mass] 31.3 pg 27.0-32.0 [facility] Monocyte percentageOrdered B y: Jonny Vicente on 12-31-2024 Monocytes/100 WBC (Bld) 12.4 % High 0-10 [facility] Neutrophil percentageOrdered By: Jonny Vicente on 12-31-2024 Neutrophils/100 WBC (Bld) 67.2 % 47-70 [facility] Platelet countOrdered By: Alyson Vicente on 12-31-2024 Platelets (Bld) [#/Vol] 234 10*3/uL 150-450 [facility] RBC Auto (Bld) [#/Vol]Ordere d By: Jonny Vicente on 12-31-2024 RBC (Bld) [#/Vol] 2.94 10*6/uL Low 4.2-5.4 [facility] White blood cell (WBC) count Ordered By: Jonny Vicente on 12-31-2024 WBC (Bld) [#/Vol] 7.7 10*3/uL 4.4-11.0 [facility] Basic Metabolic Profile (BMP )on 12-30-2024 BUN/CRE 19.8 RATIO Normal 10-20 [facility] Comment on above: Performed By: #### L 501.2300, L100.0100, L500.4100, L501.9520, L500.2500 ####[facility] [address] [place], [address] Calcium [Mass/Vol] 8.4 mg/dL Normal 7.6-11.0 [facility] Comment on above: Performed By: #### L 501.2300, L100.0100, L500.4100, L501.9520, L500.2500 ####[facility] [address] [place], [address] Chloride [Moles/Vol] 105 mmol/L Normal 98-108 [facility] Comment on above: Performed By: #### L 501.2300, L100.0100, L500.4100, L501.9520, L500.2500 ####[facility] [address] [place], [address] CO2 [Moles/Vol] 21.9 mmol/L Normal 21.0-32.0 [facility] Comment on above: Performed By: #### L 501.2300, L100.0100, L500.4100, L501.9520, L500.2500 ####[facility] [address] [place], [address] Creatinine [Mass/Vol] 1.05 mg/dL Normal 0.70-1.20 [facility] Comment on above: Performed By: #### L 501.2300, L100.0100, L500.4100, L501.9520, L500.2500 ####[facility] [address] [place], [address] ECRCL 50.09 ml/min Normal 50-250 [facility] Comment on above: Performed By: #### L 501.2300, L100.0100, L500.4100, L501.9520, L500.2500 ####[facility] [address] [place], [address] GAP 12 Normal 5-15 [facility] Comment on above: Performed By: #### L 501.2300, L100.0100, L500.4100, L501.9520, L500.2500 ####[facility] [address] [place], [address] GFR/1.73 sq M.predicted among non-blacks MDRD (S/P/Bld) [Vol rate/Area] 53 mL/min/{1.73_m2} Low >60 [facility] Comment on above: Result Comment: mL/m in/1.73m2 CKD-EPI Creatinine Equation (2020) Performed By: #### L 501.2300, L100.0100, L500.4100, L501.9520, L500.2500 ####[facility] [address] [place], [address] Glucose [Mass/Vol] 97 mg/dL Normal 70-99 [facility] Comment on above: Performed By: #### L 501.2300, L100.0100, L500.4100, L501.9520, L500.2500 ####[facility] [address] [place], [address] Potassium [Moles/Vol] 3.6 mmol/L Normal 3.3-5.1 [facility] Comment on above: Result Comment: Hemo lysis present, Results??could be affected.?? Performed By: #### L 501.2300, L100.0100, L500.4100, L501.9520, L500.2500 ####[facility] [address] [place], [address] Sodium [Moles/Vol] 139 mmol/L Normal 133-145 [facility] Comment on above: Performed By: #### L 501.2300, L100.0100, L500.4100, L501.9520, L500.2500 ####[facility] [address] [place], [address] Urea nitrogen [Mass/Vol] 21 mg/dL High 4-19 [facility] Comment on above: Performed By: #### L 501.2300, L100.0100, L500.4100, L501.9520, L500.2500 ####[facility] [address] [place], [address] CBC W/Diff, Automatedon 08-3 0-2024 Absolute Lymph 1.11 X10 3/uL Normal 0.83-4.51 [facility] Comment on above: Performed By: #### L 501.2300, L100.0100, L500.4100, L501.9520, L500.2500 ####[facility] [address] [place], [address] Absolute Neut 5.3 X10 3/uL Normal 2.0-7.7 [facility] Comment on above: Performed By: #### L 501.2300, L100.0100, L500.4100, L501.9520, L500.2500 ####[facility] [address] [place], [address] Basophils/100 WBC (Bld) 1.3 % High 0-1 [facility] Comment on above: Performed By: #### L 501.2300, L100.0100, L500.4100, L501.9520, L500.2500 ####[facility] [address] [place], [address] Eosinophils/100 WBC (Bld) 2.6 % Normal 0-5 [facility] Comment on above: Performed By: #### L 501.2300, L100.0100, L500.4100, L501.9520, L500.2500 ####[facility] [address] [place], [address] Erythrocyte distribution width (RBC) [Ratio] 15.6 % High 11.6-14.6 [facility] Comment on above: Performed By: #### L 501.2300, L100.0100, L500.4100, L501.9520, L500.2500 ####[facility] [address] [place], [address] Hematocrit (Bld) [Volume fraction] 28.6 % Low 37-47 [facility] Comment on above: Performed By: #### L 501.2300, L100.0100, L500.4100, L501.9520, L500.2500 ####[facility] [address] [place], [address] Hemoglobin (Bld) [Mass/Vol] 8.5 g/dL Low 12.0-15.0 [facility] Comment on above: Performed By: #### L 501.2300, L100.0100, L500.4100, L501.9520, L500.2500 ####[facility] [address] [place], [address] IG% 0.500 Normal 0.0-0.9 [facility] Comment on above: Result Comment: IG% - Immature Granulocytes (promyelocytes, myelocytes andmetamyelocytes) > 1% indicates that a LEFT SHIFT is Present. Performed By: #### L 501.2300, L100.0100, L500.4100, L501.9520, L500.2500 ####[facility] [address] [place], [address] Lymphocytes/100 WBC (Bld) 14.2 % Low 19-41 [facility] Comment on above: Performed By: #### L 501.2300, L100.0100, L500.4100, L501.9520, L500.2500 ####[facility] [address] [place], [address] MCH (RBC) [Entitic mass] 30.5 pg Normal 27.0-32.0 [facility] Comment on above: Performed By: #### L 501.2300, L100.0100, L500.4100, L501.9520, L500.2500 ####[facility] [address] [place], [address] MCHC (RBC) [Mass/Vol] 29.7 g/dL Low 32-36 [facility] Comment on above: Performed By: #### L 501.2300, L100.0100, L500.4100, L501.9520, L500.2500 ####[facility] [address] [place], [address] MCV (RBC) [Entitic vol] 102.5 fL High 81-99 [facility] Comment on above: Performed By: #### L 501.2300, L100.0100, L500.4100, L501.9520, L500.2500 ####[facility] [address] [place], [address] Monocytes/100 WBC (Bld) 13.8 % High 0-10 [facility] Comment on above: Performed By: #### L 501.2300, L100.0100, L500.4100, L501.9520, L500.2500 ####[facility] [address] [place], [address] Neutrophils/100 WBC (Bld) 67.6 % Normal 47-70 [facility] Comment on above: Performed By: #### L 501.2300, L100.0100, L500.4100, L501.9520, L500.2500 ####[facility] [address] [place], [address] Nucleated RBC (Bld) [#/Vol] 0 10*3/uL Normal 0-5 [facility] Comment on above: Performed By: #### L 501.2300, L100.0100, L500.4100, L501.9520, L500.2500 ####[facility] [address] [place], [address] Platelet mean volume (Bld) [Entitic vol] 11.1 fL Normal 6.2-12.0 [facility] Comment on above: Performed By: #### L 501.2300, L100.0100, L500.4100, L501.9520, L500.2500 ####[facility] [address] [place], [address] Platelets (Bld) [#/Vol] 201 10*3/uL Normal 150-450 [facility] Comment on above: Performed By: #### L 501.2300, L100.0100, L500.4100, L501.9520, L500.2500 ####[facility] [address] [place], [address] RBC (Bld) [#/Vol] 2.79 10*6/uL Low 4.2-5.4 [facility] Comment on above: Performed By: #### L 501.2300, L100.0100, L500.4100, L501.9520, L500.2500 ####[facility] [address] [place], [address] RDW SD 59.0 fl High 35.1-43.9 [facility] Comment on above: Performed By: #### L 501.2300, L100.0100, L500.4100, L501.9520, L500.2500 ####[facility] [address] [place], [address] WBC (Bld) [#/Vol] 7.8 10*3/uL Normal 4.4-11.0 [facility] Comment on above: Performed By: #### L 501.2300, L100.0100, L500.4100, L501.9520, L500.2500 ####[facility] [address] [place], [address] Calculated very low density lipoprotein (VLDL) cholesterol measurementOrdered By: Len Nicolas on 12-30-2024 Calculated very low density lipoprotein (VLDL) cholesterol measurement 17 mg/dL 5-40 [facility] LDL calc ser/plasOrdered By: eLn Nicolas on 12-30-2024 Cholesterol in LDL [Mass/Vol] 36 mg/dL [facility] Lipid Profileon 12-30-2024 CHOL:HDL 1.96 Normal [facility] Comment on above: Performed By: #### L 501.2300, L100.0100, L500.4100, L501.9520, L500.2500 ####[facility] [address] [place], [address] Cholesterol [Mass/Vol] 109 mg/dL Normal <=200 [facility] Comment on above: Result Comment: Chol esterol level, Desirable <200 mg/dLBorderline high cholesterol 200-239 mg/dLHigh cholesterol >=240 mg/dLRecommendations of the NCEP Adult Treatment Panel for thefollowing risk-cutoff thresholds for the [place] American[facility] centerulation. Performed By: #### L 501.2300, L100.0100, L500.4100, L501.9520, L500.2500 ####[facility] [address] [place], [address] Cholesterol in HDL [Mass/Vol] 56 mg/dL Normal [facility] Comment on above: Result Comment: Nathalie onal Cholesterol Education Program (NCEP) guidelines:<40 mg/dL: Low HDL-cholesterol (major risk factor for CHD)>= 60 mg/dL: High HDL-cholesterol (negative risk factor forCHD)HDL-cholesterol is affected by a number of factors, e.g.smoking, exercise, hormones, sex and age. Performed By: #### L 501.2300, L100.0100, L500.4100, L501.9520, L500.2500 ####[facility] [address] [place], [address] Cholesterol in LDL [Mass/Vol] 36 mg/dL Normal [facility] Comment on above: Result Comment: Bord rfeaks=892-472 mg/dL Higher Btvo=677 mg/dL or greaterFriedwald Equation for LDL-C Performed By: #### L 501.2300, L100.0100, L500.4100, L501.9520, L500.2500 ####[facility] [address] [place], [address] Cholesterol in VLDL [Mass/Vol] 17 mg/dL Normal 5-40 [facility] Comment on above: Performed By: #### L 501.2300, L100.0100, L500.4100, L501.9520, L500.2500 ####[facility] [address] [place], [address] Triglyceride [Mass/Vol] 85 mg/dL Normal [facility] Comment on above: Result Comment: The drugs N-Acetylcysteine and Metamizole may falselydepress this assay.Normal range: <150 mg/dLBorderline High: 150-199 mg/dLHigh: 200-499 mg/dLVery High: >500 mg/dL Performed By: #### L 501.2300, L100.0100, L500.4100, L501.9520, L500.2500 ####[facility] [address] [place], [address] Phosphoruson 12-30-2024 Phosphate [Mass/Vol] 4.0 mg/dL Normal 2.7-4.5 [facility] Comment on above: Performed By: #### L 501.2300, L100.0100, L500.4100, L501.9520, L500.2500 ####[facility] [address] [place], [address] Serum or plasma cholesterol in HDL measurement (mass/volume)Ordered By: Len Nicolas on 12-30-2024 Cholesterol in HDL [Mass/Vol] 56 mg/dL >40 [facility] Serum or plasma cholesterol measurement (mass/volume)Ordered By: Len Nicolas on 12-30-2024 Cholesterol [Mass/Vol] 109 mg/dL <201 [facility] TSH DL <= 0.005 mIU/L QnOrde red By: Len Nicolas on 12-30-2024 TSH Qn 3.700 uIU/mL 0.300-4.200 [facility] Thyroid Stim Hormone (TSH)on 12-30-2024 TSH 3.700 uIU/mL Normal 0.300-4.200 [facility] Comment on above: Performed By: #### L 501.2300, L100.0100, L500.4100, L501.9520, L500.2500 ####[facility] [address] [place], [address] 12 Lead EKGon 12-29-2024 12 Lead EKG Normal [facility] Absolute lymphocyte countOrd ered By: Marilia Mendosa on 12-29-2024 Lymphocytes Auto (Unsp spec) [#/Vol] 1.18 10*3/uL 0.83-4.51 [facility] Anion gap in Serum or Plasma Ordered By: Marilia Mendosa on 12-29-2024 Anion gap [Moles/Vol] 15 mmol/L 5-15 [facility] Automated lymphocyte count a s percentage of total leukocytesOrdered By: Marilia Carlsonkassimaria elena on 12-29-2024 Lymphocytes/100 WBC Auto (Unsp spec) 12.6 % Low 19-41 [facility] BUN/creatinine ratioOrdered By: Marilia Navya on 12-29-2024 Urea nitrogen/Creatinine [Mass ratio] 21.3 mg/mg High 10-20 [facility] Basic Metabolic Profile (BMP )on 12-29-2024 BUN/CRE 21.3 RATIO High 10-20 [facility] Comment on above: Performed By: #### L 100.0100, L500.2500, L503.7505 ####[facility] [address] [place], [address] Calcium [Mass/Vol] 9.3 mg/dL Normal 7.6-11.0 [facility] Comment on above: Performed By: #### L 100.0100, L500.2500, L503.7505 ####[facility] [address] [place], [address] Chloride [Moles/Vol] 103 mmol/L Normal 98-108 [facility] Comment on above: Performed By: #### L 100.0100, L500.2500, L503.7505 ####[facility] [address] [place], [address] CO2 [Moles/Vol] 22.4 mmol/L Normal 21.0-32.0 [facility] Comment on above: Performed By: #### L 100.0100, L500.2500, L503.7505 ####[facility] [address] [place], [address] Creatinine [Mass/Vol] 0.96 mg/dL Normal 0.70-1.20 [facility] Comment on above: Performed By: #### L 100.0100, L500.2500, L503.7505 ####[facility] [address] [place], [address] ECRCL 56.24 ml/min Normal 50-250 [facility] Comment on above: Performed By: #### L 100.0100, L500.2500, L503.7505 ####[facility] [address] [place], [address] GAP 15 Normal 5-15 [facility] Comment on above: Performed By: #### L 100.0100, L500.2500, L503.7505 ####[facility] [address] [place], [address] GFR/1.73 sq M.predicted among non-blacks MDRD (S/P/Bld) [Vol rate/Area] 59 mL/min/{1.73_m2} Low >60 [facility] Comment on above: Result Comment: mL/m in/1.73m2 CKD-EPI Creatinine Equation (2020) Performed By: #### L 100.0100, L500.2500, L503.7505 ####[facility] [address] [place], [address] Glucose [Mass/Vol] 109 mg/dL High 70-99 [facility] Comment on above: Performed By: #### L 100.0100, L500.2500, L503.7505 ####[facility] [address] [place], [address] Potassium [Moles/Vol] 3.8 mmol/L Normal 3.3-5.1 [facility] Comment on above: Result Comment: Hemo lysis present, Results??could be affected.?? Performed By: #### L 100.0100, L500.2500, L503.7505 ####[facility] [address] [place], [address] Sodium [Moles/Vol] 140 mmol/L Normal 133-145 [facility] Comment on above: Performed By: #### L 100.0100, L500.2500, L503.7505 ####[facility] [address] [place], [address] Urea nitrogen [Mass/Vol] 20 mg/dL High 4-19 [facility] Comment on above: Performed By: #### L 100.0100, L500.2500, L503.7505 ####[facility] [address] [place], [address] Basophil percentageOrdered B y: Marilia Mendosa on 12-29-2024 Basophils/100 WBC (Bld) 0.6 % 0-1 [facility] CBC W/Diff, Automatedon 12-02 PLT EST ADEQUATE Normal ADEQ [facility] Comment on above: Performed By: #### L 100.0100, L500.2500, L503.7505 ####[facility] [address] [place], [place], [id number] Carbon dioxide, total [Moles /volume] in Central venous bloodOrdered By: Marilia Mendosa on 12-29-2024 CO2 [Moles/Vol] 22.4 mmol/L 21.0-32.0 [facility] Chest PA and Lateralon 12-29 Chest PA and Lateral Normal [facility] Chloride assayOrdered By: Marge Mendosa on 12-29-2024 Chloride [Moles/Vol] 103 mmol/L 98-108 [facility] Emergency Department Summary on 12-29-2024 Emergency Department Summary Normal [facility] Eosinophil percentageOrdered By: Marilia Mendosa on 12-29-2024 Eosinophils/100 WBC (Bld) 1.4 % 0-5 [facility] Erythrocyte distribution wid th ratioOrdered By: Marilia Mendosa on 12-29-2024 Erythrocyte distribution width (RBC) [Ratio] 15.6 % High 11.6-14.6 [facility] Erythrocyte distribution wid th standard deviationOrdered By: Marilia Mendosa on 12-29-2024 Erythrocyte distribution width (RBC) [Ratio] 53.2 fl High 35.1-43.9 [facility] Glomerular filtration rate ( GFR) estimation/1.73 sq m using serum, plasma, or whole bOrdered By: Marilia Mendosa on 12-29-2024 GFR/1.73 sq M.predicted among non-blacks MDRD (S/P/Bld) [Vol rate/Area] 59 mL/min/{1.73_m2} Low >60 [facility] H AND P Exam - Hospitaliston 12-29-2024 H&P Exam - Hospitalist Normal [facility] Hematocrit Auto (Bld) [Volum e fraction]Ordered By: Marilia Mendosa on 12-29-2024 Hematocrit (Bld) [Volume fraction] 31.5 % Low 37-47 [facility] Hemoglobin measurementOrdere d By: Marilia Mendosa on 12-29-2024 Hemoglobin (Bld) [Mass/Vol] 10.3 g/dL Low 12.0-15.0 [facility] Immature granulocytes/100 WB C Auto (Bld)Ordered By: Marilia Mendosa on 12-29-2024 Immature granulocytes/100 WBC (Bld) 0.900 % 0.0-0.9 [facility] L501.4021on 12-29-2024 Trop T High Sen 23 ng/L High <=14 [facility] Comment on above: Performed By: #### L 501.4021 ####[facility] [address] [place], [place], [id number] MCV (mean corpuscular volume ) determinationOrdered By: Marilia Mendosa on 12-29-2024 MCV (RBC) [Entitic vol] 93.5 fL 81-99 [facility] Magnesiumon 12-29-2024 Magnesium [Mass/Vol] 2.3 mg/dL High 1.5-2.2 [facility] Comment on above: Performed By: #### L 501.5200 ####[facility] [address] [place], [place], [address] Magnesium measurement (mass/ volume)Ordered By: Len Nicolas on 12-29-2024 Magnesium (Unsp spec) [Mass/Vol] 2.3 mg/dL High 1.5-2.2 [facility] Mean corpuscular hemoglobin (MCH) determinationOrdered By: Marilia Mendosa on 12-29-2024 MCH (RBC) [Entitic mass] 30.6 pg 27.0-32.0 [facility] Monocyte percentageOrdered B y: Marilia Mendosa on 12-29-2024 Monocytes/100 WBC (Bld) 9.2 % 0-10 [facility] Natriuretic peptide.B prohor carmelita N-Terminal [Mass/volume] in Serum or PlasmaOrdered By: Marilia Mendosa on 12-29-2024 Natriuretic peptide.B prohormone N-Terminal [Mass/Vol] 1033 pg/mL <1800 [facility] Neutrophil percentageOrdered By: Marilia Mendosa on 12-29-2024 Neutrophils/100 WBC (Bld) 75.3 % High 47-70 [facility] Platelet countOrdered By: Marge Mendosa on 12-29-2024 Platelet count See comment 150-450 [facility] Platelet estimateOrdered By: Marilia Mendosa on 12-29-2024 Platelets LM Ql (Bld) ADEQUATE ADEQ [facility] Potassium measurement (mass/ volume)Ordered By: Marilia Mendosa on 12-29-2024 Potassium (Unsp spec) [Mass/Vol] 3.8 mmol/L 3.3-5.1 [facility] Pro- Brain NATRIURETIC PEPTI Kenyatta 12-29-2024 Natriuretic peptide B (Bld) [Mass/Vol] 1033 pg/mL Normal <=1800 [facility] Comment on above: Result Comment: Hear t Failure Unlikely: < 300 pg/mLHeart Failure Likely< 50 Years: > 450 pg/mL50-75 Years: > 900 pg/mL>75 Years: > 1800 pg/mL Performed By: #### L 100.0100, L500.2500, L503.7505 ####[facility] [address] [place], [address] RBC Auto (Bld) [#/Vol]Ordere d By: Marilia Mendosa on 12-29-2024 RBC (Bld) [#/Vol] 3.37 10*6/uL Low 4.2-5.4 [facility] Serum creatinine measurement (mass/volume)Ordered By: Marilia Mendosa on 12-29-2024 Creatinine [Mass/Vol] 0.96 mg/dL 0.70-1.20 [facility] Serum glucose measurement (m ass/volume)Ordered By: Marilia Mendosa on 12-29-2024 Glucose [Mass/Vol] 109 mg/dL High 70-99 [facility] Serum or plasma calcium julee urement (mass/volume)Ordered By: Marilia Mendosa on 12-29-2024 Calcium [Mass/Vol] 9.3 mg/dL 7.6-11.0 [facility] Serum or plasma urea nitroge n measurement (mass/volume)Ordered By: Marilia Mendosa on 12-29-2024 Urea nitrogen [Mass/Vol] 20 mg/dL High 4-19 [facility] Sodium levelOrdered By: Marilia Mendosa on 12-29-2024 Sodium [Moles/Vol] 140 mmol/L 133-145 [facility] Troponin T HS 2 HRon 025 Trop T High Sen 23 ng/L High <=14 [facility] Comment on above: Order Comment: NEEDS COLLECTED @ 1522 Performed By: #### L [id number] ####[facility] [address] [place], [place], [id number] Troponin T HS 4 HRon 025 Trop T High Sen 25 ng/L High <=14 [facility] Comment on above: Performed By: #### L [id number] ####[facility] [address] [place], [place], [id number] Troponin T.cardiac [Mass/vol ume] in Serum or Plasma by High sensitivity methodOrdered By: Len Nicolas on 12-29-2024 Troponin T.cardiac High sensitivity method [Mass/Vol] 25 ng/L High <14 [facility] Troponin T.cardiac [Mass/vol ume] in Serum or Plasma by High sensitivity methodOrdered By: Marilia Mendosa on 12-29-2024 Troponin T.cardiac High sensitivity method [Mass/Vol] 23 ng/L High <14 [facility] Troponin T.cardiac High sensitivity method [Mass/Vol] 23 ng/L High <14 [facility] White blood cell (WBC) count Ordered By: Marilia Mendosa on 12-29-2024 WBC (Bld) [#/Vol] 9.4 10*3/uL 4.4-11.0 [facility] Cardiology Visit Reporton Cardiology Visit Report Normal [facility] 12 Lead EKGon 12-23-2024 12 Lead EKG Normal [facility] Absolute lymphocyte countOrd ered By: Arley Manuel on 12-23-2024 Lymphocytes Auto (Unsp spec) [#/Vol] 1.38 10*3/uL 0.83-4.51 [facility] Absolute neutrophil countOrd ered By: Arley Manuel on 12-23-2024 Neutrophils (Bld) [#/Vol] 9.6 10*3/uL High 2.0-7.7 [facility] Anion gap in Serum or Plasma Ordered By: Arley Manuel on 12-23-2024 Anion gap [Moles/Vol] 15 mmol/L 5-15 [facility] Automated lymphocyte count a s percentage of total leukocytesOrdered By: Arley Manuel on 12-23-2024 Lymphocytes/100 WBC Auto (Unsp spec) 10.8 % Low 19-41 [facility] BUN/creatinine ratioOrdered By: Arley Manuel on 12-23-2024 Urea nitrogen/Creatinine [Mass ratio] 21.0 mg/mg High 10-20 [facility] Basic Metabolic Profile (BMP )on 12-23-2024 BUN/CRE 21.0 RATIO High 10- [facility] Comment on above: Performed By: #### L 100.0100, L503.7505, L500.2500 ####[facility] [address] [place], [place], [id number] Calcium [Mass/Vol] 9.0 mg/dL Normal 7.6-11.0 [facility] Comment on above: Performed By: #### L 100.0100, L503.7505, L500.2500 ####[facility] [address] [place], [address] Chloride [Moles/Vol] 104 mmol/L Normal 98-108 [facility] Comment on above: Performed By: #### L 100.0100, L503.7505, L500.2500 ####[facility] [address] [place], [address] CO2 [Moles/Vol] 22.6 mmol/L Normal 21.0-32.0 [facility] Comment on above: Performed By: #### L 100.0100, L503.7505, L500.2500 ####[facility] [address] [place], [address] Creatinine [Mass/Vol] 1.17 mg/dL Normal 0.70-1.20 [facility] Comment on above: Performed By: #### L 100.0100, L503.7505, L500.2500 ####[facility] [address] [place], [address] GAP 15 Normal 5-15 [facility] Comment on above: Performed By: #### L 100.0100, L503.7505, L500.2500 ####[facility] [address] [place], [address] GFR/1.73 sq M.predicted among non-blacks MDRD (S/P/Bld) [Vol rate/Area] 46 mL/min/{1.73_m2} Low >60 [facility] Comment on above: Result Comment: mL/m in/1.73m2 CKD-EPI Creatinine Equation (2020) Performed By: #### L 100.0100, L503.7505, L500.2500 ####[facility] [address] [place], [address] Glucose [Mass/Vol] 119 mg/dL High 70-99 [facility] Comment on above: Performed By: #### L 100.0100, L503.7505, L500.2500 ####[facility] [address] [place], [address] Potassium [Moles/Vol] 3.6 mmol/L Normal 3.3-5.1 [facility] Comment on above: Performed By: #### L 100.0100, L503.7505, L500.2500 ####[facility] [address] [place], [address] Sodium [Moles/Vol] 141 mmol/L Normal 133-145 [facility] Comment on above: Performed By: #### L 100.0100, L503.7505, L500.2500 ####[facility] [address] [place], [address] Urea nitrogen [Mass/Vol] 25 mg/dL High 4-19 [facility] Comment on above: Performed By: #### L 100.0100, L503.7505, L500.2500 ####[facility] [address] [place], [address] Basophil percentageOrdered B y: Arley Manuel on 12-23-2024 Basophils/100 WBC (Bld) 0.5 % 0-1 [facility] CBC W/Diff, Automatedon 12-02 Absolute Lymph 1.38 X10 3/uL Normal 0.83-4.51 [facility] Comment on above: Performed By: #### L 100.0100, L503.7505, L500.2500 ####[facility] [address] [place], [address] Absolute Neut 9.6 X10 3/uL High 2.0-7.7 [facility] Comment on above: Performed By: #### L 100.0100, L503.7505, L500.2500 ####[facility] [address] [place], [address] Basophils/100 WBC (Bld) 0.5 % Normal 0-1 [facility] Comment on above: Performed By: #### L 100.0100, L503.7505, L500.2500 ####[facility] [address] [place], [address] Eosinophils/100 WBC (Bld) 2.0 % Normal 0-5 [facility] Comment on above: Performed By: #### L 100.0100, L503.7505, L500.2500 ####[facility] [address] [place], [address] Erythrocyte distribution width (RBC) [Ratio] 15.2 % High 11.6-14.6 [facility] Comment on above: Performed By: #### L 100.0100, L503.7505, L500.2500 ####[facility] [address] [place], [address] Hematocrit (Bld) [Volume fraction] 29.9 % Low 37-47 [facility] Comment on above: Performed By: #### L 100.0100, L503.7505, L500.2500 ####[facility] [address] [place], [address] Hemoglobin (Bld) [Mass/Vol] 9.7 g/dL Low 12.0-15.0 [facility] Comment on above: Performed By: #### L 100.0100, L503.7505, L500.2500 ####[facility] [address] [place], [address] IG% 0.500 Normal 0.0-0.9 [facility] Comment on above: Result Comment: IG% - Immature Granulocytes (promyelocytes, myelocytes andmetamyelocytes) > 1% indicates that a LEFT SHIFT is Present. Performed By: #### L 100.0100, L503.7505, L500.2500 ####[facility] [address] [place], [address] Lymphocytes/100 WBC (Bld) 10.8 % Low 19-41 [facility] Comment on above: Performed By: #### L 100.0100, L503.7505, L500.2500 ####[facility] [address] [place], [address] MCH (RBC) [Entitic mass] 30.1 pg Normal 27.0-32.0 [facility] Comment on above: Performed By: #### L 100.0100, L503.7505, L500.2500 ####[facility] [address] [place], [address] MCHC (RBC) [Mass/Vol] 32.4 g/dL Normal 32-36 [facility] Comment on above: Performed By: #### L 100.0100, L503.7505, L500.2500 ####[facility] [address] [place], [address] MCV (RBC) [Entitic vol] 92.9 fL Normal 81-99 [facility] Comment on above: Performed By: #### L 100.0100, L503.7505, L500.2500 ####[facility] [address] [place], [address] Monocytes/100 WBC (Bld) 10.7 % High 0-10 [facility] Comment on above: Performed By: #### L 100.0100, L503.7505, L500.2500 ####[facility] [address] [place], [address] Neutrophils/100 WBC (Bld) 75.5 % High 47-70 [facility] Comment on above: Performed By: #### L 100.0100, L503.7505, L500.2500 ####[facility] [address] [place], [address] Nucleated RBC (Bld) [#/Vol] 0 10*3/uL Normal 0-5 [facility] Comment on above: Performed By: #### L 100.0100, L503.7505, L500.2500 ####[facility] [address] [place], [address] Platelet mean volume (Bld) [Entitic vol] 10.5 fL Normal 6.2-12.0 [facility] Comment on above: Performed By: #### L 100.0100, L503.7505, L500.2500 ####[facility] [address] [place], [address] Platelets (Bld) [#/Vol] 249 10*3/uL Normal 150-450 [facility] Comment on above: Performed By: #### L 100.0100, L503.7505, L500.2500 ####[facility] [address] [place], [address] RBC (Bld) [#/Vol] 3.22 10*6/uL Low 4.2-5.4 [facility] Comment on above: Performed By: #### L 100.0100, L503.7505, L500.2500 ####[facility] [address] [place], [address] RDW SD 51.6 fl High 35.1-43.9 [facility] Comment on above: Performed By: #### L 100.0100, L503.7505, L500.2500 ####[facility] [address] [place], [address] WBC (Bld) [#/Vol] 12.8 10*3/uL High 4.4-11.0 [facility] Comment on above: Performed By: #### L 100.0100, L503.7505, L500.2500 ####[facility] [address] [place], [address] Carbon dioxide, total [Moles /volume] in Central venous bloodOrdered By: Arley Manuel on 12-23-2024 CO2 [Moles/Vol] 22.6 mmol/L 21.0-32.0 [facility] Chest 1 View (Portable)on Chest 1 View (Portable) Normal [facility] Chloride assayOrdered By: Mally Manuel on 12-23-2024 Chloride [Moles/Vol] 104 mmol/L 98-108 [facility] Emergency Department Summary on 12-23-2024 Emergency Department Summary Normal [facility] Eosinophil percentageOrdered By: Arley Manuel on 12-23-2024 Eosinophils/100 WBC (Bld) 2.0 % 0-5 [facility] Erythrocyte distribution wid th ratioOrdered By: Arley Manuel on 12-23-2024 Erythrocyte distribution width (RBC) [Ratio] 15.2 % High 11.6-14.6 [facility] Erythrocyte distribution wid th standard deviationOrdered By: Arley Manuel on 12-23-2024 Erythrocyte distribution width (RBC) [Ratio] 51.6 fl High 35.1-43.9 [facility] Glomerular filtration rate ( GFR) estimation/1.73 sq m using serum, plasma, or whole bOrdered By: Arley Manuel on 12-23-2024 GFR/1.73 sq M.predicted among non-blacks MDRD (S/P/Bld) [Vol rate/Area] 46 mL/min/{1.73_m2} Low >60 [facility] Comment on above: mL/min/1.73m2 CKD-EP I Creatinine Equation (2020) Hematocrit Auto (Bld) [Volum e fraction]Ordered By: Arley Manuel on 12-23-2024 Hematocrit (Bld) [Volume fraction] 29.9 % Low 37-47 [facility] Hemoglobin measurementOrdere d By: Arley Manuel on 12-23-2024 Hemoglobin (Bld) [Mass/Vol] 9.7 g/dL Low 12.0-15.0 [facility] Immature granulocytes/100 WB C Auto (Bld)Ordered By: Arley Manuel on 12-23-2024 Immature granulocytes/100 WBC (Bld) 0.500 % 0.0-0.9 [facility] Comment on above: IG% - Immature Granu locytes (promyelocytes, myelocytes and metamyelocytes) > 1% indicates that a LEFT SHIFT is Present. MCV (mean corpuscular volume ) determinationOrdered By: Arley Manuel on 12-23-2024 MCV (RBC) [Entitic vol] 92.9 fL 81-99 [facility] Mean corpuscular hemoglobin (MCH) determinationOrdered By: Arley Manuel on 12-23-2024 MCH (RBC) [Entitic mass] 30.1 pg 27.0-32.0 [facility] Mean corpuscular hemoglobin concentration (MCHC) determinationOrdered By: Arley Manuel on 12-23-2024 MCHC (RBC) [Mass/Vol] 32.4 g/dL 32-36 [facility] Mean platelet volume determi nationOrdered By: Arley Manuel on 12-23-2024 Platelet mean volume (Bld) [Entitic vol] 10.5 fL 6.2-12.0 [facility] Monocyte percentageOrdered B y: Arley Manuel on 12-23-2024 Monocytes/100 WBC (Bld) 10.7 % High 0-10 [facility] Natriuretic peptide.B prohor carmelita N-Terminal [Mass/volume] in Serum or PlasmaOrdered By: Arley Manuel on 12-23-2024 Natriuretic peptide.B prohormone N-Terminal [Mass/Vol] 1330 pg/mL <1800 [facility] Comment on above: Heart Failure Unlike ly: < 300 pg/mLHeart Failure Likely< 50 Years: > 450 pg/mL50-75 Years: > 900 pg/mL>75 Years: > 1800 pg/mL Neutrophil percentageOrdered By: Arley Manuel on 12-23-2024 Neutrophils/100 WBC (Bld) 75.5 % High 47-70 [facility] Nucleated red blood cell per centageOrdered By: Arley Manuel on 12-23-2024 Nucleated RBC/100 WBC (Bld) [Ratio] 0 % 0-5 [facility] Platelet countOrdered By: Mally Manuel on 12-23-2024 Platelets (Bld) [#/Vol] 249 10*3/uL 150-450 [facility] Potassium measurement (mass/ volume)Ordered By: Arley Manuel on 12-23-2024 Potassium (Unsp spec) [Mass/Vol] 3.6 mmol/L 3.3-5.1 [facility] Pro- Brain NATRIURETIC PEPTI Kenyatta 12-23-2024 Natriuretic peptide B (Bld) [Mass/Vol] 1330 pg/mL Normal <=1800 [facility] Comment on above: Result Comment: Hear t Failure Unlikely: < 300 pg/mLHeart Failure Likely< 50 Years: > 450 pg/mL50-75 Years: > 900 pg/mL>75 Years: > 1800 pg/mL Performed By: #### L 100.0100, L503.7505, L500.2500 ####[facility] [address] [place], [address] RBC Auto (Bld) [#/Vol]Ordere d By: Arley Manuel on 12-23-2024 RBC (Bld) [#/Vol] 3.22 10*6/uL Low 4.2-5.4 [facility] Serum creatinine measurement (mass/volume)Ordered By: Arley Manuel on 12-23-2024 Creatinine [Mass/Vol] 1.17 mg/dL 0.70-1.20 [facility] Serum glucose measurement (m ass/volume)Ordered By: Arley Manuel on 12-23-2024 Glucose [Mass/Vol] 119 mg/dL High 70-99 [facility] Serum or plasma calcium julee urement (mass/volume)Ordered By: Arley Manuel on 12-23-2024 Calcium [Mass/Vol] 9.0 mg/dL 7.6-11.0 [facility] Serum or plasma urea nitroge n measurement (mass/volume)Ordered By: Arley Manuel on 12-23-2024 Urea nitrogen [Mass/Vol] 25 mg/dL High 4-19 [facility] Sodium levelOrdered By: Arley Manuel on 12-23-2024 Sodium [Moles/Vol] 141 mmol/L 133-145 [facility] White blood cell (WBC) count Ordered By: Arley Manuel on 12-23-2024 WBC (Bld) [#/Vol] 12.8 10*3/uL High 4.4-11.0 [facility] Absolute lymphocyte countOrd ered By: [facility] Karen Johnson on 12-20-2024 Lymphocytes Auto (Unsp spec) [#/Vol] 0.77 10*3/uL Low 0.83-4.51 [facility] Absolute neutrophil countOrd ered By: [facility] Karen Johnson on 12-20-2024 Neutrophils (Bld) [#/Vol] 7.7 10*3/uL 2.0-7.7 [facility] Anion gap in Serum or Plasma Or[facility]: [facility] on 12-20-2024 Anion gap [Moles/Vol] 12 mmol/L 5-15 [facility] Automated lymphocyte count a s percentage of total leukocytesOrdered By: [facility] Karen Johnson on 12-20-2024 Lymphocytes/100 WBC Auto (Unsp spec) 8.1 % Low 19-41 [facility] BUN/creatinine ratioOrdered By: [facility] Karenlizbeth Johnson on 12-20-2024 Urea nitrogen/Creatinine [Mass ratio] 31.1 mg/mg High 10-20 [facility] Basic Metabolic Profile (BMP )on 12-20-2024 BUN/CRE 31.1 RATIO High - [facility] Comment on above: Performed By: #### L 100.0100, L500.2500 ####[facility] [address] [place], [address] Calcium [Mass/Vol] 8.8 mg/dL Normal 7.6-11.0 [facility] Comment on above: Performed By: #### L 100.0100, L500.2500 ####[facility] [address] [place], [address] Chloride [Moles/Vol] 102 mmol/L Normal 98-108 [facility] Comment on above: Performed By: #### L 100.0100, L500.2500 ####[facility] [address] [place], [address] CO2 [Moles/Vol] 24.2 mmol/L Normal 21.0-32.0 [facility] Comment on above: Performed By: #### L 100.0100, L500.2500 ####[facility] [address] [place], [address] Creatinine [Mass/Vol] 1.01 mg/dL Normal 0.70-1.20 [facility] Comment on above: Performed By: #### L 100.0100, L500.2500 ####[facility] [address] [place], [address] GAP 12 Normal 5-15 [facility] Comment on above: Performed By: #### L 100.0100, L500.2500 ####[facility] [address] [place], [address] GFR/1.73 sq M.predicted among non-blacks MDRD (S/P/Bld) [Vol rate/Area] 55 mL/min/{1.73_m2} Low >60 [facility] Comment on above: Result Comment: mL/m in/1.73m2 CKD-EPI Creatinine Equation (2020) Performed By: #### L 100.0100, L500.2500 ####[facility] [address] [place], [address] Glucose [Mass/Vol] 104 mg/dL High 70-99 [facility] Comment on above: Performed By: #### L 100.0100, L500.2500 ####[facility] [address] [place], [address] Potassium [Moles/Vol] 3.9 mmol/L Normal 3.3-5.1 [facility] Comment on above: Performed By: #### L 100.0100, L500.2500 ####[facility] [address] [place], [address] Sodium [Moles/Vol] 139 mmol/L Normal 133-145 [facility] Comment on above: Performed By: #### L 100.0100, L500.2500 ####[facility] [address] [place], [address] Urea nitrogen [Mass/Vol] 31 mg/dL High 4-19 [facility] Comment on above: Performed By: #### L 100.0100, L500.2500 ####[facility] [address] [place], [address] Basophil percentageOrdered B y: [facility] Karen Johnson on 12-20-2024 Basophils/100 WBC (Bld) 0.7 % 0-1 [facility] CBC W/Diff, Automatedon 12-02-2024 Absolute Lymph 0.77 X10 3/uL Low 0.83-4.51 [facility] Comment on above: Performed By: #### L 100.0100, L500.2500 ####[facility] [address] [place], [address] Absolute Neut 7.7 X10 3/uL Normal 2.0-7.7 [facility] Comment on above: Performed By: #### L 100.0100, L500.2500 ####[facility] [address] [place], [address] Basophils/100 WBC (Bld) 0.7 % Normal 0-1 [facility] Comment on above: Performed By: #### L 100.0100, L500.2500 ####[facility] [address] [place], [address] Eosinophils/100 WBC (Bld) 1.4 % Normal 0-5 [facility] Comment on above: Performed By: #### L 100.0100, L500.2500 ####[facility] [address] [place], [address] Erythrocyte distribution width (RBC) [Ratio] 15.3 % High 11.6-14.6 [facility] Comment on above: Performed By: #### L 100.0100, L500.2500 ####[facility] [address] [place], [address] Hematocrit (Bld) [Volume fraction] 28.9 % Low 37-47 [facility] Comment on above: Performed By: #### L 100.0100, L500.2500 ####[facility] [address] [place], [address] Hemoglobin (Bld) [Mass/Vol] 9.3 g/dL Low 12.0-15.0 [facility] Comment on above: Performed By: #### L 100.0100, L500.2500 ####[facility] [address] [place], [address] IG% 0.600 Normal 0.0-0.9 [facility] Comment on above: Result Comment: IG% - Immature Granulocytes (promyelocytes, myelocytes andmetamyelocytes) > 1% indicates that a LEFT SHIFT is Present. Performed By: #### L 100.0100, L500.2500 ####[facility] [address] [place], [address] Lymphocytes/100 WBC (Bld) 8.1 % Low 19-41 [facility] Comment on above: Performed By: #### L 100.0100, L500.2500 ####[facility] [address] [place], [address] MCH (RBC) [Entitic mass] 30.2 pg Normal 27.0-32.0 [facility] Comment on above: Performed By: #### L 100.0100, L500.2500 ####[facility] [address] [place], [address] MCHC (RBC) [Mass/Vol] 32.2 g/dL Normal 32-36 [facility] Comment on above: Performed By: #### L 100.0100, L500.2500 ####[facility] [address] [place], [address] MCV (RBC) [Entitic vol] 93.8 fL Normal 81-99 [facility] Comment on above: Performed By: #### L 100.0100, L500.2500 ####[facility] [address] [place], [address] Monocytes/100 WBC (Bld) 8.9 % Normal 0-10 [facility] Comment on above: Performed By: #### L 100.0100, L500.2500 ####[facility] [address] [place], [address] Neutrophils/100 WBC (Bld) 80.3 % High 47-70 [facility] Comment on above: Performed By: #### L 100.0100, L500.2500 ####[facility] [address] [place], [address] Nucleated RBC (Bld) [#/Vol] 0 10*3/uL Normal 0-5 [facility] Comment on above: Performed By: #### L 100.0100, L500.2500 ####[facility] [address] [place], [address] Platelet mean volume (Bld) [Entitic vol] 11.0 fL Normal 6.2-12.0 [facility] Comment on above: Performed By: #### L 100.0100, L500.2500 ####[facility] [address] [place], [address] Platelets (Bld) [#/Vol] 247 10*3/uL Normal 150-450 [facility] Comment on above: Performed By: #### L 100.0100, L500.2500 ####[facility] [address] [place], [address] RBC (Bld) [#/Vol] 3.08 10*6/uL Low 4.2-5.4 [facility] Comment on above: Performed By: #### L 100.0100, L500.2500 ####[facility] [address] [place], [address] RDW SD 52.1 fl High 35.1-43.9 [facility] Comment on above: Performed By: #### L 100.0100, L500.2500 ####[facility] [address] [place], [address] WBC (Bld) [#/Vol] 9.6 10*3/uL Normal 4.4-11.0 [facility] Comment on above: Performed By: #### L 100.0100, L500.2500 ####[facility] [address] [place], [address] CNOVon 12-20-2024 CNOV Office Visit (GENSWS ) MICHAEL MEIER ([id number]) 1940 F Date Time Provider Department 12/20/24 2:30 PM SHARON JARRETT GENAidan During your visit today, we recorded the following information about you: Pulse Respiration Blood pressure Weight 60/minute 16/minute 137/76 111.6 kg Sharon Jarrett APRN.COUNTER WAITER 12/20/2024 3:39 PM Signed HISTORY AND PHYSICAL Michael Meier [...] was 03/[address] De León in [place]. Sedation: MAC Impression: - 3 cm hiatal hernia. - Z-line regular, 37 cm from the incisors. Biopsied. - Gastritis, characterized by congestion (edema), erosions, erythema and linear erosions. Biopsied. - Normal examined duodenum. Biopsied. Last colonoscopy was was 06/[address] Mcclure at [facility]. Sedation: Impression: - The entire examined colon [...] Situational mixed (more content not included)... Normal [facility] Carbon dioxide, total [Moles /volume] in Central venous bloodOrdered By: [facility] Karen Alex on 12-20-2024 CO2 [Moles/Vol] 24.2 mmol/L 21.0-32.0 [facility] Chloride assayOrdered By: [facility] Karen Alex on 12-20-2024 Chloride [Moles/Vol] 102 mmol/L 98-108 [facility] Eosinophil percentageOrdered By: [facility] Karen Alex on 12-20-2024 Eosinophils/100 WBC (Bld) 1.4 % 0-5 [facility] Erythrocyte distribution wid th ratioOrdered By: [facility] on 12-20-2024 Erythrocyte distribution width (RBC) [Ratio] 15.3 % High 11.6-14.6 [facility] Erythrocyte distribution wid th standard deviationOrdered By: [facility] Alex on 12-20-2024 Erythrocyte distribution width (RBC) [Ratio] 52.1 fl High 35.1-43.9 [facility] Glomerular filtration rate ( GFR) estimation/1.73 sq m using serum, plasma, or whole bOrdered By: [facility] Karen Alex on 12-20-2024 GFR/1.73 sq M.predicted among non-blacks MDRD (S/P/Bld) [Vol rate/Area] 55 mL/min/{1.73_m2} Low >60 [facility] Comment on above: mL/min/1.73m2 CKD-EP I Creatinine Equation (2020) Hematocrit Auto (Bld) [Volum e fraction]Ordered By: [facility] Karen Alex on 12-20-2024 Hematocrit (Bld) [Volume fraction] 28.9 % Low 37-47 [facility] Hemoglobin measurementOrdere d By: [facility] Karen Alex on 12-20-2024 Hemoglobin (Bld) [Mass/Vol] 9.3 g/dL Low 12.0-15.0 [facility] Immature granulocytes/100 WB C Auto (Bld)Ordered By: [facility] Karenlizbeth Johnson on 12-20-2024 Immature granulocytes/100 WBC (Bld) 0.600 % 0.0-0.9 [facility] Comment on above: IG% - Immature Granu locytes (promyelocytes, myelocytes and metamyelocytes) > 1% indicates that a LEFT SHIFT is Present. MCV (mean corpuscular volume ) determinationOrdered By: [facility] Karen Johnson on 12-20-2024 MCV (RBC) [Entitic vol] 93.8 fL 81-99 [facility] Mean corpuscular hemoglobin (MCH) determinationOrdered By: [facility] Karen Johnson on 12-20-2024 MCH (RBC) [Entitic mass] 30.2 pg 27.0-32.0 [facility] Mean corpuscular hemoglobin concentration (MCHC) determinationOrdered By: [facility] Karen Johnson on 12-20-2024 MCHC (RBC) [Mass/Vol] 32.2 g/dL 32-36 [facility] Mean platelet volume determi nationOrdered By: [facility] Karen Johnson on 12-20-2024 Platelet mean volume (Bld) [Entitic vol] 11.0 fL 6.2-12.0 [facility] Monocyte percentageOrdered B y: [facility] Karen Johnson on 12-20-2024 Monocytes/100 WBC (Bld) 8.9 % 0-10 [facility] Neutrophil percentageOrdered By: [facility] Karen Johnson on 12-20-2024 Neutrophils/100 WBC (Bld) 80.3 % High 47-70 [facility] Nucleated red blood cell per centageOrdered By: [facility] Karen Johnson on 12-20-2024 Nucleated RBC/100 WBC (Bld) [Ratio] 0 % 0-5 [facility] Platelet countOrdered By: [facility] Karen Johnson on 12-20-2024 Platelets (Bld) [#/Vol] 247 10*3/uL 150-450 [facility] Potassium measurement (mass/ volume)Ordered By: [facility] Karen Johnson on 12-20-2024 Potassium (Unsp spec) [Mass/Vol] 3.9 mmol/L 3.3-5.1 [facility] RBC Auto (Bld) [#/Vol]Ordere d By: [facility] Karen Johnson on 12-20-2024 RBC (Bld) [#/Vol] 3.08 10*6/uL Low 4.2-5.4 [facility] Serum creatinine measurement (mass/volume)Ordered By: [facility] Karen Johnson on 12-20-2024 Creatinine [Mass/Vol] 1.01 mg/dL 0.70-1.20 [facility] Serum glucose measurement (m ass/volume)Ordered By: [facility] Karen Johnson on 12-20-2024 Glucose [Mass/Vol] 104 mg/dL High 70-99 [facility] Serum or plasma calcium julee urement (mass/volume)Ordered By: [facility] Karen Johnson on 12-20-2024 Calcium [Mass/Vol] 8.8 mg/dL 7.6-11.0 [facility] Serum or plasma urea nitroge n measurement (mass/volume)Ordered By: [facility] Karen Johnson on 12-20-2024 Urea nitrogen [Mass/Vol] 31 mg/dL High 4-19 [facility] Sodium levelOrdered By: [facility]aren[facility]ati Johnson on 12-20-2024 Sodium [Moles/Vol] 139 mmol/L 133-145 [facility] White blood cell (WBC) count Ordered By: [facility] Karen Johnson on 12-20-2024 WBC (Bld) [#/Vol] 9.6 10*3/uL 4.4-11.0 [facility] CNPNon 12-18-2024 CNPN Telephone (FAMPWS) MICHAEL MEIER ([id number]) 1940 F Date Time Provider Department 12/18/24 [facility] During your visit today, we recorded the following information about you: Constance Ervin LPN 12/18/2024 3:47 PM Signed FYI: Yvonne with [facility] PT calls with pt's POC. PT will see pt twice a week x 4 weeks for strengthening, gait and transfer training, and fall prevention. CAROLINE Lennon Jordan L, DO 12/18/2024 4:57 PM Signed Noted, agree with below DO Jeet Dow Amanda, RN 12/18/2024 5:48 PM Signed Called and left a detailed [facility]ic[facility] Clinic phone number was left in case she had any questions. July Marcano RN Allergies As of Date: 12/18/2024 Noted Allergy Reaction CIPROFLOXACIN 09/05/2018 2 - Rash DEMEROL (MEPERIDINE (PF)) 02/06/2011 11 - Vomiting OPIOIDS - MORPHINE ANALOGUES 03/17/2001 5 - Intolerance Comments: nausea, dizzy, "sees things" OPIOIDS-MEPERIDINE AND RELATED 02/17/2001 Comments: nausea/vomiting PENICILLIN [...] skin farhana (more content not included)... Normal [facility] ([id number]) 1940 F Date Time Provider Department 12/15/24 MICHAEL PUGA [facility] During your visit today, we recorded the following information about you: Bhavna Arauz, GLYNN 12/15/2024 10:31 AM Signed Bhavna calling from [facility] to report plan of care for patient and Longterm will visit patient 1 time a week [...] Pt BP was 147/63. MARITZA Romo MA Allergies As of Date: 12/15/2024 Noted Allergy Reaction CIPROFLOXACIN 09/05/2018 2 - Rash DEMEROL (MEPERIDINE (PF)) 02/06/2011 11 - Vomiting OPIOIDS - MORPHINE ANALOGUES 03/17/2001 5 - Intolerance Comments: nausea, dizzy, "sees things" OPIOIDS-MEPERIDINE AND RELATED 02/17/2001 Comments: nausea/vomiting PENICILLIN G 02/17/2001 Comments: hamidaes PRAVACHOL (PRAVASTATIN SODIUM) 03/09/2016 14 - Other: See Comments Comments: Leg cramps SULFA (SULFONAMIDE ANTIBIOTICS) 03/17/2001 Comments: imani VICODIN (HYDROCODONE-ACETAMINO PHE*01/08/2005 5 - Intolerance Comments: dizzy,nausea,vomiting, headache ZITHROMAX (AZITHROMYCIN) 05/20/2017 5 - Intolerance Date Reviewed: 08/30/2024 Reviewed by: Julianna Cano LPN - Fully Assessed Reason for Visit: Longterm Plan of Care [Other] Prescriptions as of [...] Unspecified ga (more content not included)... Normal [facility]HAEL [facility]IER ([id number]) 1940 F Date Time Provider Department 12/14/24 MICHAEL PUGA FAMPWS During your visit today, we recorded the following information about you: Amanda Pratt RN 12/14/2024 2:30 PM Signed Larissa with [facility] HH calls to ask if provider would follow their HH orders for SN, PT, and clinical social work therapist. Patient currently at [facility] for HTN. Call back for Larissa is [phone]. GLYNN Montiel Rebekah, APRN.[facility] 12/14/2024 2:[address] Puga will follow. Asia Rosales APRN.[employer] Jacque Machuca MA 12/14/2024 2:59 PM Signed larissa informed Jacque Machuca MA Allergies As of Date: 12/14/2024 Noted Allergy Reaction CIPROFLOXACIN 09/05/2018 2 - Rash DEMEROL (MEPERIDINE (PF)) 02/06/2011 11 - Vomiting OPIOIDS - MORPHINE ANALOGUES 03/17/2001 5 - Intolerance Comments: nausea, dizzy, "sees things" OPIOIDS-MEPERIDINE AND RELATED 02/17/2001 Comments: nausea/vomiting PENICILLIN [...] Scars [ (more content not included)... [facility] Dis[facility] Instructionon 12-01 Discharge Instruction Normal [facility] Potassiumon 12-13-2024 Potassium [Moles/Vol] 4.6 mmol/L Normal 3.3-5.1 [facility] Comment on above: Performed By: #### L 501.5600 ####[facility] [address] [place], [address] Potassium measurement (mass/ volume)Ordered By: Radha Tammy on 12-13-2024 Potassium (Unsp spec) [Mass/Vol] 4.6 mmol/L 3.3-5.1 [facility] Anion gap in Serum or Plasma Ordered By: Radha Munoz on 12-12-2024 Anion gap [Moles/Vol] 13 mmol/L - [facility] BUN/creatinine ratioOrdered By: Radha Munoz on 12-12-2024 Urea nitrogen/Creatinine [Mass ratio] 29.1 mg/mg High 10- [facility] Basic Metabolic Profile (BMP )on 12-12-2024 BUN/CRE 29.1 RATIO High [facility] Comment on above: Performed By: #### L 501.7300, L500.2500 ####[facility] [address] [place], [address] Calcium [Mass/Vol] 9.5 mg/dL Normal 7.6-11.0 [facility] Comment on above: Performed By: #### L 501.7300, L500.2500 ####[facility] [address] [place], [address] Chloride [Moles/Vol] 97 mmol/L Low 98-108 [facility] Comment on above: Performed By: #### L 501.7300, L500.2500 ####[facility] [address] [place], [address] CO2 [Moles/Vol] 19.8 mmol/L Low 21.0-32.0 [facility] Comment on above: Performed By: #### L 501.7300, L500.2500 ####[facility] [address] [place], [address] Creatinine [Mass/Vol] 1.02 mg/dL Normal 0.70-1.20 [facility] Comment on above: Performed By: #### L 501.7300, L500.2500 ####[facility] [address] [place], [address] ECRCL 52.04 ml/min Normal 50-250 [facility] Comment on above: Performed By: #### L 501.7300, L500.2500 ####[facility] [address] [place], [address] GAP 13 Normal 5-15 [facility] Comment on above: Performed By: #### L 501.7300, L500.2500 ####[facility] [address] [place], [address] GFR/1.73 sq M.predicted among non-blacks MDRD (S/P/Bld) [Vol rate/Area] 55 mL/min/{1.73_m2} Low >60 [facility] Comment on above: Result Comment: mL/m in/1.73m2 CKD-EPI Creatinine Equation (2020) Performed By: #### L 501.7300, L500.2500 ####[facility] [address] [place], [address] Glucose [Mass/Vol] 100 mg/dL High 70-99 [facility] Comment on above: Performed By: #### L 501.7300, L500.2500 ####[facility] [address] [place], [address] Potassium [Moles/Vol] 5.1 mmol/L Normal 3.3-5.1 [facility] Comment on above: Result Comment: Hemo lysis present, Results??could be affected.?? Performed By: #### L 501.7300, L500.2500 ####[facility] [address] [place], [address] Sodium [Moles/Vol] 130 mmol/L Low 133-145 [facility] Comment on above: Performed By: #### L 501.7300, L500.2500 ####[facility] [address] [place], [address] Urea nitrogen [Mass/Vol] 30 mg/dL High 4-19 [facility] Comment on above: Performed By: #### L 501.7300, L500.2500 ####[facility] [address] [place], [address] Carbon dioxide, total [Moles /volume] in Central venous bloodOrdered By: Radha Munoz on 12-12-2024 CO2 [Moles/Vol] 19.8 mmol/L Low 21.0-32.0 [facility] Chloride assayOrdered By: Alex Munoz on 12-12-2024 Chloride [Moles/Vol] 97 mmol/L Low 98-108 [facility] Glomerular filtration rate ( GFR) estimation/1.73 sq m using serum, plasma, or whole bOrdered By: Radha Munoz on 12-12-2024 GFR/1.73 sq M.predicted among non-blacks MDRD (S/P/Bld) [Vol rate/Area] 55 mL/min/{1.73_m2} Low >60 [facility] Comment on above: mL/min/1.73m2 CKD-EP I Creatinine Equation (2020) Osmolality, Serumon 12-13-19 25 OSMOLALITY,SER 282 mOsm/KG Normal 280-301 [facility] Comment on above: Performed By: #### L 501.7300, L500.2500 ####[facility] [address] [place], [address] Serum creatinine measurement (mass/volume)Ordered By: Radha Munoz on 12-12-2024 Creatinine [Mass/Vol] 1.02 mg/dL 0.70-1.20 [facility] Serum glucose measurement (m ass/volume)Ordered By: Radha Burksafrica on 12-12-2024 Glucose [Mass/Vol] 100 mg/dL High 70-99 [facility] Serum or plasma calcium julee urement (mass/volume)Ordered By: Radha Burksafrica on 12-12-2024 Calcium [Mass/Vol] 9.5 mg/dL 7.6-11.0 [facility] Serum or plasma urea nitroge n measurement (mass/volume)Ordered By: Radha Tammy on 12-12-2024 Urea nitrogen [Mass/Vol] 30 mg/dL High 4-19 [facility] Sodium levelOrdered By: Radha Tammy on 12-12-2024 Sodium [Moles/Vol] 130 mmol/L Low 133-145 [facility] Osmolality urOrdered By: Evon watson Tammy on 12-11-2024 Osmolality (U) [Osmolality] 539 mOsm/KG >50 [facility] Comment on above: Normal Urine Referen ce Ranges Random: 50 - 1200 mOsm/kg H20 depending on fluid intake Random: >850 mOsm/kg after 12 hour fluid restriction 24 hour: ~300 - 900 mOsm/kg H2O Osmolality, Urineon 12-12-19 25 OSMOLALITY,UR 539 mOsm/KG Normal [facility] Comment on above: Result Comment: Norm al Urine Reference Ranges Random: 50 - 1200 mOsm/kg H20 depending on fluid intake Random: >850 mOsm/kg after 12 hour fluid restriction 24 hour: 300 - 900 mOsm/kg H2O Performed By: #### L 501.5500, L501.7400 ####[facility] [address] [place], [place], [id number] Urine Sodiumon 12-11-2024 Sodium (U) [Moles/Vol] 59 mmol/L Normal Not Establ. [facility] Comment on above: Performed By: #### L 501.5500, L501.7400 ####[facility] [address] [place], [place], [id number] Urine sodium measurement (mo les/volume)Ordered By: Radha Munoz on 12-11-2024 Sodium (U) [Moles/Vol] 59 mmol/L Not Establ. [facility] Basic Metabolic Profile (BMP )on 12-10-2024 BUN/CRE 24.2 RATIO High 10-20 [facility] Comment on above: Performed By: #### L 500.2500 ####[facility] [address] [place], [address] Calcium [Mass/Vol] 8.6 mg/dL Normal 7.6-11.0 [facility] Comment on above: Performed By: #### L 500.2500 ####[facility] [address] [place], [address] Chloride [Moles/Vol] 96 mmol/L Low 98-108 [facility] Comment on above: Performed By: #### L 500.2500 ####[facility] [address] [place], [address] CO2 [Moles/Vol] 22.1 mmol/L Normal 21.0-32.0 [facility] Comment on above: Performed By: #### L 500.2500 ####[facility] [address] [place], [address] Creatinine [Mass/Vol] 1.06 mg/dL Normal 0.70-1.20 [facility] Comment on above: Performed By: #### L 500.2500 ####[facility] [address] [place], [address] ECRCL 49.90 ml/min Low 50-250 [facility] Comment on above: Performed By: #### L 500.2500 ####[facility] [address] [place], [address] GAP 10 Normal 5-15 [facility] Comment on above: Performed By: #### L 500.2500 ####[facility] [address] [place], [address] GFR/1.73 sq M.predicted among non-blacks MDRD (S/P/Bld) [Vol rate/Area] 52 mL/min/{1.73_m2} Low >60 [facility] Comment on above: Result Comment: mL/m in/1.73m2 CKD-EPI Creatinine Equation (2020) Performed By: #### L 500.2500 ####[facility] [address] [place], [address] Glucose [Mass/Vol] 113 mg/dL High 70-99 [facility] Comment on above: Performed By: #### L 500.2500 ####[facility] [address] [place], [address] Potassium [Moles/Vol] 4.4 mmol/L Normal 3.3-5.1 [facility] Comment on above: Performed By: #### L 500.2500 ####[facility] [address] [place], [address] Sodium [Moles/Vol] 128 mmol/L Low 133-145 [facility] Comment on above: Performed By: #### L 500.2500 ####[facility] [address] [place], [address] Urea nitrogen [Mass/Vol] 26 mg/dL High 4-19 [facility] Comment on above: Performed By: #### L 500.2500 ####[facility] [address] [place], [address] Basic Metabolic Profile (BMP )on 12-07-2024 BUN/CRE 24.6 RATIO High 10-20 [facility] Comment on above: Performed By: #### L 100.0600, L500.2500 ####[facility] [address] [place], [address] Calcium [Mass/Vol] 8.9 mg/dL Normal 7.6-11.0 [facility] Comment on above: Performed By: #### L 100.0600, L500.2500 ####[facility] [address] [place], [address] Chloride [Moles/Vol] 92 mmol/L Low 98-108 [facility] Comment on above: Performed By: #### L 100.0600, L500.2500 ####[facility] [address] [place], [address] CO2 [Moles/Vol] 24.1 mmol/L Normal 21.0-32.0 [facility] Comment on above: Performed By: #### L 100.0600, L500.2500 ####[facility] [address] [place], [address] Creatinine [Mass/Vol] 0.91 mg/dL Normal 0.70-1.20 [facility] Comment on above: Performed By: #### L 100.0600, L500.2500 ####[facility] [address] [place], [address] ECRCL 58.12 ml/min Normal 50-250 [facility] Comment on above: Performed By: #### L 100.0600, L500.2500 ####[facility] [address] [place], [address] GAP 10 Normal 5-15 [facility] Comment on above: Performed By: #### L 100.0600, L500.2500 ####[facility] [address] [place], [address] GFR/1.73 sq M.predicted among non-blacks MDRD (S/P/Bld) [Vol rate/Area] 63 mL/min/{1.73_m2} Normal >60 [facility] Comment on above: Result Comment: mL/m in/1.73m2 CKD-EPI Creatinine Equation (2020) Performed By: #### L 100.0600, L500.2500 ####[facility] [address] [place], [address] Glucose [Mass/Vol] 105 mg/dL High 70-99 [facility] Comment on above: Performed By: #### L 100.0600, L500.2500 ####[facility] [address] [place], [address] Potassium [Moles/Vol] 4.7 mmol/L Normal 3.3-5.1 [facility] Comment on above: Performed By: #### L 100.0600, L500.2500 ####[facility] [address] [place], [address] Sodium [Moles/Vol] 127 mmol/L Low 133-145 [facility] Comment on above: Performed By: #### L 100.0600, L500.2500 ####[facility] [address] [place], [address] Urea nitrogen [Mass/Vol] 22 mg/dL High 4-19 [facility] Comment on above: Performed By: #### L 100.0600, L500.2500 ####[facility] [address] [place], [address] HH, Hemoglobin AND Hematocri ton 12-07-2024 Hematocrit (Bld) [Volume fraction] 30.4 % Low 37-47 [facility] Comment on above: Performed By: #### L 100.0600, L500.2500 ####[facility] [address] [place], [address] Hemoglobin (Bld) [Mass/Vol] 10.5 g/dL Low 12.0-15.0 [facility] Comment on above: Performed By: #### L 100.0600, L500.2500 ####[facility] [address] [place], [address] Hematocrit Auto (Bld) [Volum e fraction]Ordered By: Radha Munoz on 12-07-2024 Hematocrit (Bld) [Volume fraction] 30.4 % Low 37-47 [facility] Hemoglobin measurementOrdere d By: Radha Munoz on 12-07-2024 Hemoglobin (Bld) [Mass/Vol] 10.5 g/dL Low 12.0-15.0 [facility] L509.6001on 12-06-2024 CORTISOL 27.30 ug/dL High 6.02-18.40 [facility] Comment on above: Order Comment: Must be drawn 30-60 min AFTER cosyntropin admin. Performed By: #### L 509.6001 ####[facility] [address] [place], [place], [address] CORTISOL 6.62 ug/dL Normal 6.02-18.40 [facility] Comment on above: Order Comment: must be performed shortly BEFORE cosyntropin admin Performed By: #### L 509.6001 ####[facility] [address] [place], [address] Serum or plasma cortisol theresa surement (mass/volume)Ordered By: Radha Munoz on 12-06-2024 Cortisol [Mass/Vol] 27.30 ug/dL High 6.02-18.40 [facility] Stool Occult Blood iFOBon STOB Normal [facility] Comment on above: Performed By: #### M 100.7900 ####[facility] [address] [place], [place], [address] Stool gastrointestinal hemog lobin detection by immunologic methodOrdered By: Radha Munoz on 12-05-2024 Lower GI hemoglobin IA Ql (Stl) Positive Abnormal [facility] Absolute lymphocyte countOrd ered By: Maia Garcia on 12-04-2024 Lymphocytes Auto (Unsp spec) [#/Vol] 1.16 10*3/uL 0.83-4.51 [facility] Absolute neutrophil countOrd ered By: Maia Garcia on 12-04-2024 Neutrophils (Bld) [#/Vol] 5.9 10*3/uL 2.0-7.7 [facility] Automated lymphocyte count a s percentage of total leukocytesOrdered By: Maia Garcia on 12-04-2024 Lymphocytes/100 WBC Auto (Unsp spec) 13.8 % Low 19-41 [facility] Basophil percentageOrdered B y: Maia CamposJoselitoTrinireggie on 12-04-2024 Basophils/100 WBC (Bld) 0.8 % 0-1 [facility] Bilirubin, totalOrdered By: Maia Conklinreggie on 12-04-2024 Bilirubin [Mass/Vol] 0.41 mg/dL 0.00-1.30 [facility] CBC W/Diff, Automatedon Absolute Lymph 1.16 X10 3/uL Normal 0.83-4.51 [facility] Comment on above: Performed By: #### L 500.4050, L100.0100, L501.5200, L501.2300 ####[facility] [address] [place], [address] Absolute Neut 5.9 X10 3/uL Normal 2.0-7.7 [facility] Comment on above: Performed By: #### L 500.4050, L100.0100, L501.5200, L501.2300 ####[facility] [address] [place], [address] Basophils/100 WBC (Bld) 0.8 % Normal 0-1 [facility] Comment on above: Performed By: #### L 500.4050, L100.0100, L501.5200, L501.2300 ####[facility] [address] [place], [address] Eosinophils/100 WBC (Bld) 3.2 % Normal 0-5 [facility] Comment on above: Performed By: #### L 500.4050, L100.0100, L501.5200, L501.2300 ####[facility] [address] [place], [address] Erythrocyte distribution width (RBC) [Ratio] 14.6 % Normal 11.6-14.6 [facility] Comment on above: Performed By: #### L 500.4050, L100.0100, L501.5200, L501.2300 ####[facility] [address] [place], [address] Hematocrit (Bld) [Volume fraction] 28.9 % Low 37-47 [facility] Comment on above: Performed By: #### L 500.4050, L100.0100, L501.5200, L501.2300 ####[facility] [address] [place], [address] Hemoglobin (Bld) [Mass/Vol] 9.8 g/dL Low 12.0-15.0 [facility] Comment on above: Performed By: #### L 500.4050, L100.0100, L501.5200, L501.2300 ####[facility] [address] [place], [address] IG% 0.600 Normal 0.0-0.9 [facility] Comment on above: Result Comment: IG% - Immature Granulocytes (promyelocytes, myelocytes andmetamyelocytes) > 1% indicates that a LEFT SHIFT is Present. Performed By: #### L 500.4050, L100.0100, L501.5200, L501.2300 ####[facility] [address] [place], [address] Lymphocytes/100 WBC (Bld) 13.8 % Low 19-41 [facility] Comment on above: Performed By: #### L 500.4050, L100.0100, L501.5200, L501.2300 ####[facility] [address] [place], [address] MCH (RBC) [Entitic mass] 30.5 pg Normal 27.0-32.0 [facility] Comment on above: Performed By: #### L 500.4050, L100.0100, L501.5200, L501.2300 ####[facility] [address] [place], [address] MCHC (RBC) [Mass/Vol] 33.9 g/dL Normal 32-36 [facility] Comment on above: Performed By: #### L 500.4050, L100.0100, L501.5200, L501.2300 ####[facility] [address] [place], [address] MCV (RBC) [Entitic vol] 90.0 fL Normal 81-99 [facility] Comment on above: Performed By: #### L 500.4050, L100.0100, L501.5200, L501.2300 ####[facility] [address] [place], [address] Monocytes/100 WBC (Bld) 11.9 % High 0-10 [facility] Comment on above: Performed By: #### L 500.4050, L100.0100, L501.5200, L501.2300 ####[facility] [address] [place], [address] Neutrophils/100 WBC (Bld) 69.7 % Normal 47-70 [facility] Comment on above: Performed By: #### L 500.4050, L100.0100, L501.5200, L501.2300 ####[facility] [address] [place], [address] Nucleated RBC (Bld) [#/Vol] 0 10*3/uL Normal 0-5 [facility] Comment on above: Performed By: #### L 500.4050, L100.0100, L501.5200, L501.2300 ####[facility] [address] [place], [address] Platelet mean volume (Bld) [Entitic vol] 10.2 fL Normal 6.2-12.0 [facility] Comment on above: Performed By: #### L 500.4050, L100.0100, L501.5200, L501.2300 ####[facility] [address] [place], [address] Platelets (Bld) [#/Vol] 177 10*3/uL Normal 150-450 [facility] Comment on above: Performed By: #### L 500.4050, L100.0100, L501.5200, L501.2300 ####[facility] [address] [place], [address] RBC (Bld) [#/Vol] 3.21 10*6/uL Low 4.2-5.4 [facility] Comment on above: Performed By: #### L 500.4050, L100.0100, L501.5200, L501.2300 ####[facility] [address] [place], [address] RDW SD 48.6 fl High 35.1-43.9 [facility] Comment on above: Performed By: #### L 500.4050, L100.0100, L501.5200, L501.2300 ####[facility] [address] [place], [address] WBC (Bld) [#/Vol] 8.4 10*3/uL Normal 4.4-11.0 [facility] Comment on above: Performed By: #### L 500.4050, L100.0100, L501.5200, L501.2300 ####[facility] [address] [place], [address] Comprehensive Metabolic Prof ilon 12-04-2024 Albumin [Mass/Vol] 3.4 g/dL Normal 3.4-4.8 [facility] Comment on above: Performed By: #### L 500.4050, L100.0100, L501.5200, L501.2300 ####[facility] [address] [place], [address] Albumin/Globulin [Mass ratio] 1.8 {ratio} Normal 0.9-2.4 [facility] Comment on above: Performed By: #### L 500.4050, L100.0100, L501.5200, L501.2300 ####[facility] [address] [place], [address] ALK PHOS 55 U/L Normal 35-104 [facility] Comment on above: Performed By: #### L 500.4050, L100.0100, L501.5200, L501.2300 ####[facility] [address] [place], [address] ALT [Catalytic activity/Vol] 27 U/L Normal <=34 [facility] Comment on above: Performed By: #### L 500.4050, L100.0100, L501.5200, L501.2300 ####[facility] [address] [place], [address] AST [Catalytic activity/Vol] 25 U/L Normal <=31 [facility] Comment on above: Performed By: #### L 500.4050, L100.0100, L501.5200, L501.2300 ####[facility] [address] [place], [address] Bilirubin [Mass/Vol] 0.41 mg/dL Normal 0.00-1.30 [facility] Comment on above: Performed By: #### L 500.4050, L100.0100, L501.5200, L501.2300 ####[facility] [address] [place], [address] BUN/CRE 31.5 RATIO High 10-20 [facility] Comment on above: Performed By: #### L 500.4050, L100.0100, L501.5200, L501.2300 ####[facility] [address] [place], [address] Calcium [Mass/Vol] 8.5 mg/dL Normal 7.6-11.0 [facility] Comment on above: Performed By: #### L 500.4050, L100.0100, L501.5200, L501.2300 ####[facility] [address] [place], [address] Chloride [Moles/Vol] 96 mmol/L Low 98-108 [facility] Comment on above: Performed By: #### L 500.4050, L100.0100, L501.5200, L501.2300 ####[facility] [address] [place], [address] CO2 [Moles/Vol] 23.6 mmol/L Normal 21.0-32.0 [facility] Comment on above: Performed By: #### L 500.4050, L100.0100, L501.5200, L501.2300 ####[facility] [address] [place], [address] Creatinine [Mass/Vol] 1.02 mg/dL Normal 0.70-1.20 [facility] Comment on above: Performed By: #### L 500.4050, L100.0100, L501.5200, L501.2300 ####[facility] [address] [place], [address] ECRCL 37.60 ml/min Low 50-250 [facility] Comment on above: Performed By: #### L 500.4050, L100.0100, L501.5200, L501.2300 ####[facility] [address] [place], [address] GAP 9 Normal 5-15 [facility] Comment on above: Performed By: #### L 500.4050, L100.0100, L501.5200, L501.2300 ####[facility] [address] [place], [address] GFR/1.73 sq M.predicted among non-blacks MDRD (S/P/Bld) [Vol rate/Area] 55 mL/min/{1.73_m2} Low >60 [facility] Comment on above: Result Comment: mL/m in/1.73m2 CKD-EPI Creatinine Equation (2020) Performed By: #### L 500.4050, L100.0100, L501.5200, L501.2300 ####[facility] [address] [place], [address] Globulin (S) [Mass/Vol] 1.9 g/dL Low 2.2-4.2 [facility] Comment on above: Performed By: #### L 500.4050, L100.0100, L501.5200, L501.2300 ####[facility] [address] [place], [address] Glucose [Mass/Vol] 100 mg/dL High 70-99 [facility] Comment on above: Performed By: #### L 500.4050, L100.0100, L501.5200, L501.2300 ####[facility] [address] [place], [address] Potassium [Moles/Vol] 4.7 mmol/L Normal 3.3-5.1 [facility] Comment on above: Performed By: #### L 500.4050, L100.0100, L501.5200, L501.2300 ####[facility] [address] [place], [address] Sodium [Moles/Vol] 129 mmol/L Low 133-145 [facility] Comment on above: Performed By: #### L 500.4050, L100.0100, L501.5200, L501.2300 ####[facility] [address] [place], [address] T PROT 5.3 g/dL Low 5.9-8.4 [facility] Comment on above: Performed By: #### L 500.4050, L100.0100, L501.5200, L501.2300 ####[facility] [address] [place], [address] Urea nitrogen [Mass/Vol] 32 mg/dL High 4-19 [facility] Comment on above: Performed By: #### L 500.4050, L100.0100, L501.5200, L501.2300 ####[facility] [address] [place], [address] Creatinine, Urine (random)on 12-04-2024 UR CREAT 23.20 mg/dL Low 28.00-217.00 [facility] Comment on above: Performed By: #### L 501.1200, L502.0715, L501.7400, L501.5500 ####[facility] [address] [place], [address] Eosinophil percentageOrdered By: Maia Garcia on 12-04-2024 Eosinophils/100 WBC (Bld) 3.2 % 0-5 [facility] Erythrocyte distribution wid th ratioOrdered By: Maia Garcia on 12-04-2024 Erythrocyte distribution width (RBC) [Ratio] 14.6 % 11.6-14.6 [facility] Erythrocyte distribution wid th standard deviationOrdered By: Maia Miles on 12-04-2024 Erythrocyte distribution width (RBC) [Ratio] 48.6 fl High 35.1-43.9 [facility] Immature granulocytes/100 WB C Auto (Bld)Ordered By: Maia Garcia on 12-04-2024 Immature granulocytes/100 WBC (Bld) 0.600 % 0.0-0.9 [facility] Comment on above: IG% - Immature Granu locytes (promyelocytes, myelocytes and metamyelocytes) > 1% indicates that a LEFT SHIFT is Present. L509.6001on 12-04-2024 CORTISOL 2.72 ug/dL Low 6.02-18.40 [facility] Comment on above: Performed By: #### L 509.6001 ####[facility] [address] [place], [place], [id number] Laboratory - Chemistry and C hemistry - challengeOrdered By: Maia Miles on 12-04-2024 AST [Catalytic activity/Vol] 25 U/L <32 [facility] MCV (mean corpuscular volume ) determinationOrdered By: Maia Garcia on 12-04-2024 MCV (RBC) [Entitic vol] 90.0 fL 81-99 [facility] Magnesiumon 12-04-2024 Magnesium [Mass/Vol] 2.3 mg/dL High 1.5-2.2 [facility] Comment on above: Performed By: #### L 500.4050, L100.0100, L501.5200, L501.2300 ####[facility] [address] [place], [place], [id number] Magnesium measurement (mass/ volume)Ordered By: Maia Garcia on 12-04-2024 Magnesium (Unsp spec) [Mass/Vol] 2.3 mg/dL High 1.5-2.2 [facility] Mean corpuscular hemoglobin (MCH) determinationOrdered By: Maia Miles on 12-04-2024 MCH (RBC) [Entitic mass] 30.5 pg 27.0-32.0 [facility] Mean corpuscular hemoglobin concentration (MCHC) determinationOrdered By: Maia Garcia on 12-04-2024 MCHC (RBC) [Mass/Vol] 33.9 g/dL 32-36 [facility] Mean platelet volume determi nationOrdered By: Maia Garcia on 12-04-2024 Platelet mean volume (Bld) [Entitic vol] 10.2 fL 6.2-12.0 [facility] Monocyte percentageOrdered B y: Maia Garcia on 12-04-2024 Monocytes/100 WBC (Bld) 11.9 % High 0-10 [facility] Neutrophil percentageOrdered By: Maia Garcia on 12-04-2024 Neutrophils/100 WBC (Bld) 69.7 % 47-70 [facility] No Panel InformationOrdered By: Maia Garcia on 12-04-2024 25 U/L <32 [facility] Nucleated red blood cell per centageOrdered By: Maia Garcia on 12-04-2024 Nucleated RBC/100 WBC (Bld) [Ratio] 0 % 0-5 [facility] Osmolality, Serumon 12-05-19 25 OSMOLALITY,SER 283 mOsm/KG Normal 280-301 [facility] Comment on above: Performed By: #### L 501.7300 ####[facility] [address] [place], [place], [id number] Osmolality, Urineon 12-05-19 25 OSMOLALITY,UR 298 mOsm/KG Normal [facility] Comment on above: Result Comment: Norm al Urine Reference Ranges Random: 50 - 1200 mOsm/kg H20 depending on fluid intake Random: >850 mOsm/kg after 12 hour fluid restriction 24 hour: 300 - 900 mOsm/kg H2O Performed By: #### L 501.1200, L502.0715, L501.7400, L501.5500 ####[facility] [address] [place], [place], [address] Phosphoruson 12-04-2024 Phosphate [Mass/Vol] 3.4 mg/dL Normal 2.7-4.5 [facility] Comment on above: Performed By: #### L 500.4050, L100.0100, L501.5200, L501.2300 ####[facility] [address] [place], [address] Platelet countOrdered By: Nic Garcia on 12-04-2024 Platelets (Bld) [#/Vol] 177 10*3/uL 150-450 [facility] RBC Auto (Bld) [#/Vol]Ordere d By: Maia Garcia on 12-04-2024 RBC (Bld) [#/Vol] 3.21 10*6/uL Low 4.2-5.4 [facility] Random urine creatinine julee urement (mass/volume)Ordered By: Radha Burksafrica on 12-04-2024 Creatinine Unsp time (U) [Mass/Vol] 23.20 mg/dL Low 28.00-217.00 [facility] Serum globulin measurementOr dered By: Maia Garcia on 12-04-2024 Globulin (S) [Mass/Vol] 1.9 g/dL Low 2.2-4.2 [facility] Serum or plasma alanine sprague otransferase (ALT) measurementOrdered By: Maia Garcia on 12-04-2024 ALT [Catalytic activity/Vol] 27 U/L <35 [facility] Serum or plasma albumin julee urement (mass/volume)Ordered By: Maia Miles on 12-04-2024 Albumin [Mass/Vol] 3.4 g/dL 3.4-4.8 [facility] Serum or plasma albumin/glob ulin mass ratioOrdered By: Maia Garcia on 12-04-2024 Albumin/Globulin [Mass ratio] 1.8 {ratio} 0.9-2.4 [facility] Serum or plasma alkaline rachel sphatase measurementOrdered By: Maia Miles on 12-04-2024 ALP [Catalytic activity/Vol] 55 U/L 35-104 [facility] Total proteinOrdered By: Roscoe Garcia on 12-04-2024 Protein [Mass/Vol] 5.3 g/dL Low 5.9-8.4 [facility] Urea Nitrogen, Urineon 12-04 URINE UREA 346 mg/dL Normal NO RANGE EST. [facility] Comment on above: Performed By: #### L 501.1200, L502.0715, L501.7400, L501.5500 ####[facility] [address] [place], [address] Urine Sodiumon 12-04-2024 Sodium (U) [Moles/Vol] 58 mmol/L Normal Not Establ. [facility] Comment on above: Performed By: #### L 501.1200, L502.0715, L501.7400, L501.5500 ####[facility] [address] [place], [address] White blood cell (WBC) count Ordered By: Maia Garcia on 12-04-2024 WBC (Bld) [#/Vol] 8.4 10*3/uL 4.4-11.0 [facility] Anion gap in Serum or Plasma Ordered By: Waleska Phillips on 12-03-2024 Anion gap [Moles/Vol] 11 mmol/L 5-15 [facility] BUN/creatinine ratioOrdered By: Waleska Phillips on 12-03-2024 Urea nitrogen/Creatinine [Mass ratio] 30.7 mg/mg High 10-20 [facility] Basic Metabolic Profile (BMP )on 12-03-2024 BUN/CRE 30.7 RATIO High 10-20 [facility] Comment on above: Performed By: #### L 500.2500 ####[facility] [address] [place], [address] Calcium [Mass/Vol] 8.7 mg/dL Normal 7.6-11.0 [facility] Comment on above: Performed By: #### L 500.2500 ####[facility] [address] [place], [address] Chloride [Moles/Vol] 94 mmol/L Low 98-108 [facility] Comment on above: Performed By: #### L 500.2500 ####[facility] [address] [place], [address] CO2 [Moles/Vol] 23.4 mmol/L Normal 21.0-32.0 [facility] Comment on above: Performed By: #### L 500.2500 ####[facility] [address] [place], [address] Creatinine [Mass/Vol] 1.02 mg/dL Normal 0.70-1.20 [facility] Comment on above: Performed By: #### L 500.2500 ####[facility] [address] [place], [address] ECRCL 51.48 ml/min Normal 50-250 [facility] Comment on above: Performed By: #### L 500.2500 ####[facility] [address] [place], [address] GAP 11 Normal 5-15 [facility] Comment on above: Performed By: #### L 500.2500 ####[facility] [address] [place], [address] GFR/1.73 sq M.predicted among non-blacks MDRD (S/P/Bld) [Vol rate/Area] 55 mL/min/{1.73_m2} Low >60 [facility] Comment on above: Result Comment: mL/m in/1.73m2 CKD-EPI Creatinine Equation (2020) Performed By: #### L 500.2500 ####[facility] [address] [place], [address] Glucose [Mass/Vol] 111 mg/dL High 70-99 [facility] Comment on above: Performed By: #### L 500.2500 ####[facility] [address] [place], [address] Potassium [Moles/Vol] 4.7 mmol/L Normal 3.3-5.1 [facility] Comment on above: Performed By: #### L 500.2500 ####[facility] [address] [place], [address] Sodium [Moles/Vol] 127 mmol/L Low 133-145 [facility] Comment on above: Performed By: #### L 500.2500 ####[facility] [address] [place], [address] Urea nitrogen [Mass/Vol] 31 mg/dL High 4-19 [facility] Comment on above: Performed By: #### L 500.2500 ####[facility] [address] [place], [address] BUN/CRE 34.2 RATIO High 10-20 [facility] Comment on above: Performed By: #### L 100.0500, L500.2500 ####[facility] [address] [place], [address] Calcium [Mass/Vol] 8.5 mg/dL Normal 7.6-11.0 [facility] Comment on above: Performed By: #### L 100.0500, L500.2500 ####[facility] [address] [place], [address] Chloride [Moles/Vol] 95 mmol/L Low 98-108 [facility] Comment on above: Performed By: #### L 100.0500, L500.2500 ####[facility] [address] [place], [address] CO2 [Moles/Vol] 23.6 mmol/L Normal 21.0-32.0 [facility] Comment on above: Performed By: #### L 100.0500, L500.2500 ####[facility] [address] [place], [address] Creatinine [Mass/Vol] 1.01 mg/dL Normal 0.70-1.20 [facility] Comment on above: Performed By: #### L 100.0500, L500.2500 ####[facility] [address] [place], [address] ECRCL 51.99 ml/min Normal 50-250 [facility] Comment on above: Performed By: #### L 100.0500, L500.2500 ####[facility] [address] [place], [address] GAP 10 Normal 5-15 [facility] Comment on above: Performed By: #### L 100.0500, L500.2500 ####[facility] [address] [place], [address] GFR/1.73 sq M.predicted among non-blacks MDRD (S/P/Bld) [Vol rate/Area] 55 mL/min/{1.73_m2} Low >60 [facility] Comment on above: Result Comment: mL/m in/1.73m2 CKD-EPI Creatinine Equation (2020) Performed By: #### L 100.0500, L500.2500 ####[facility] [address] [place], [address] Glucose [Mass/Vol] 116 mg/dL High 70-99 [facility] Comment on above: Performed By: #### L 100.0500, L500.2500 ####[facility] [address] [place], [address] Potassium [Moles/Vol] 4.5 mmol/L Normal 3.3-5.1 [facility] Comment on above: Performed By: #### L 100.0500, L500.2500 ####[facility] [address] [place], [address] Sodium [Moles/Vol] 128 mmol/L Low 133-145 [facility] Comment on above: Performed By: #### L 100.0500, L500.2500 ####[facility] [address] [place], [address] Urea nitrogen [Mass/Vol] 35 mg/dL High 4-19 [facility] Comment on above: Performed By: #### L 100.0500, L500.2500 ####[facility] [address] [place], [address] CBC-Complete Blood Cnt No ffon 12-03-2024 Erythrocyte distribution width (RBC) [Ratio] 14.7 % High 11.6-14.6 [facility] Comment on above: Performed By: #### L 100.0500, L500.2500 ####[facility] [address] [place], [address] Hematocrit (Bld) [Volume fraction] 31.2 % Low 37-47 [facility] Comment on above: Performed By: #### L 100.0500, L500.2500 ####[facility] [address] [place], [address] Hemoglobin (Bld) [Mass/Vol] 10.6 g/dL Low 12.0-15.0 [facility] Comment on above: Performed By: #### L 100.0500, L500.2500 ####[facility] [address] [place], [address] MCH (RBC) [Entitic mass] 30.4 pg Normal 27.0-32.0 [facility] Comment on above: Performed By: #### L 100.0500, L500.2500 ####[facility] [address] [place], [address] MCHC (RBC) [Mass/Vol] 34.0 g/dL Normal 32-36 [facility] Comment on above: Performed By: #### L 100.0500, L500.2500 ####[facility] [address] [place], [address] MCV (RBC) [Entitic vol] 89.4 fL Normal 81-99 [facility] Comment on above: Performed By: #### L 100.0500, L500.2500 ####[facility] [address] [place], [address] Platelet mean volume (Bld) [Entitic vol] 10.3 fL Normal 6.2-12.0 [facility] Comment on above: Performed By: #### L 100.0500, L500.2500 ####[facility] [address] [place], [address] Platelets (Bld) [#/Vol] 202 10*3/uL Normal 150-450 [facility] Comment on above: Performed By: #### L 100.0500, L500.2500 ####[facility] [address] [place], [address] RBC (Bld) [#/Vol] 3.49 10*6/uL Low 4.2-5.4 [facility] Comment on above: Performed By: #### L 100.0500, L500.2500 ####[facility] [address] [place], [address] RDW SD 47.8 fl High 35.1-43.9 [facility] Comment on above: Performed By: #### L 100.0500, L500.2500 ####[facility] [address] [place], [address] WBC (Bld) [#/Vol] 9.8 10*3/uL Normal 4.4-11.0 [facility] Comment on above: Performed By: #### L 100.0500, L500.2500 ####[facility] [address] [place], [address] Carbon dioxide, total [Moles /volume] in Central venous bloodOrdered By: Waleska Phillips on 12-03-2024 CO2 [Moles/Vol] 23.4 mmol/L 21.0-32.0 [facility] Chloride assayOrdered By: Nida Phillips on 12-03-2024 Chloride [Moles/Vol] 94 mmol/L Low 98-108 [facility] Discharge Instructionon 08-0 Discharge Instruction Normal [facility] Erythrocyte distribution wid th ratioOrdered By: Waleska Phillips on 12-03-2024 Erythrocyte distribution width (RBC) [Ratio] 14.7 % High 11.6-14.6 [facility] Erythrocyte distribution wid th standard deviationOrdered By: Waleska Phillips on 12-03-2024 Erythrocyte distribution width (RBC) [Ratio] 47.8 fl High 35.1-43.9 [facility] Glomerular filtration rate ( GFR) estimation/1.73 sq m using serum, plasma, or whole bOrdered By: Waleska Phillips on 12-03-2024 GFR/1.73 sq M.predicted among non-blacks MDRD (S/P/Bld) [Vol rate/Area] 55 mL/min/{1.73_m2} Low >60 [facility] Comment on above: mL/min/1.73m2 CKD-EP I Creatinine Equation (2020) Hematocrit Auto (Bld) [Volum e fraction]Ordered By: Waleska Phillips on 12-03-2024 Hematocrit (Bld) [Volume fraction] 31.2 % Low 37-47 [facility] Hemoglobin measurementOrdere d By: Waleska Phillips on 12-03-2024 Hemoglobin (Bld) [Mass/Vol] 10.6 g/dL Low 12.0-15.0 [facility] MCV (mean corpuscular volume ) determinationOrdered By: Waleska Phillips on 12-03-2024 MCV (RBC) [Entitic vol] 89.4 fL 81-99 [facility] Mean corpuscular hemoglobin (MCH) determinationOrdered By: Waleska Phillips on 12-03-2024 MCH (RBC) [Entitic mass] 30.4 pg 27.0-32.0 [facility] Mean corpuscular hemoglobin concentration (MCHC) determinationOrdered By: Waleska Phillips on 12-03-2024 MCHC (RBC) [Mass/Vol] 34.0 g/dL 32-36 [facility] Mean platelet volume determi nationOrdered By: Waleska Phillips on 12-03-2024 Platelet mean volume (Bld) [Entitic vol] 10.3 fL 6.2-12.0 [facility] Platelet countOrdered By: Nida Phillips on 12-03-2024 Platelets (Bld) [#/Vol] 202 10*3/uL 150-450 [facility] Potassium measurement (mass/ volume)Ordered By: Waleska Phillips on 12-03-2024 Potassium (Unsp spec) [Mass/Vol] 4.7 mmol/L 3.3-5.1 [facility] RBC Auto (Bld) [#/Vol]Ordere d By: Waleska Phillips on 12-03-2024 RBC (Bld) [#/Vol] 3.49 10*6/uL Low 4.2-5.4 [facility] Serum creatinine measurement (mass/volume)Ordered By: Waleska Phillips on 12-03-2024 Creatinine [Mass/Vol] 1.02 mg/dL 0.70-1.20 [facility] Serum glucose measurement (m ass/volume)Ordered By: Waleska Phillips on 12-03-2024 Glucose [Mass/Vol] 111 mg/dL High 70-99 [facility] Serum or plasma calcium julee urement (mass/volume)Ordered By: Waleska Phillips on 12-03-2024 Calcium [Mass/Vol] 8.7 mg/dL 7.6-11.0 [facility] Serum or plasma urea nitroge n measurement (mass/volume)Ordered By: Waleska Phillips on 12-03-2024 Urea nitrogen [Mass/Vol] 31 mg/dL High 4-19 [facility] Sodium levelOrdered By: Andi Phillips on 12-03-2024 Sodium [Moles/Vol] 127 mmol/L Low 133-145 [facility] White blood cell (WBC) count Ordered By: Waleska Phillips on 12-03-2024 WBC (Bld) [#/Vol] 9.8 10*3/uL 4.4-11.0 [facility] Absolute lymphocyte countOrd ered By: Waleska Phillips on 12-02-2024 Lymphocytes Auto (Unsp spec) [#/Vol] 1.09 10*3/uL 0.83-4.51 [facility] Absolute neutrophil countOrd ered By: Waleska Phillips on 12-02-2024 Neutrophils (Bld) [#/Vol] 7.1 10*3/uL 2.0-7.7 [facility] Automated lymphocyte count a s percentage of total leukocytesOrdered By: Waleska Phillips on 12-02-2024 Lymphocytes/100 WBC Auto (Unsp spec) 11.2 % Low 19-41 [facility] Basic Metabolic Profile (BMP )on 12-02-2024 BUN/CRE 30.6 RATIO High 10-20 [facility] Comment on above: Performed By: #### L 500.2500, L100.0100 ####[facility] [address] [place], [address] Calcium [Mass/Vol] 8.7 mg/dL Normal 7.6-11.0 [facility] Comment on above: Performed By: #### L 500.2500, L100.0100 ####[facility] [address] [place], [address] Chloride [Moles/Vol] 96 mmol/L Low 98-108 [facility] Comment on above: Performed By: #### L 500.2500, L100.0100 ####[facility] [address] [place], [address] CO2 [Moles/Vol] 23.4 mmol/L Normal 21.0-32.0 [facility] Comment on above: Performed By: #### L 500.2500, L100.0100 ####[facility] [address] [place], [address] Creatinine [Mass/Vol] 1.01 mg/dL Normal 0.70-1.20 [facility] Comment on above: Performed By: #### L 500.2500, L100.0100 ####[facility] [address] [place], [address] ECRCL 51.70 ml/min Normal 50-250 [facility] Comment on above: Performed By: #### L 500.2500, L100.0100 ####[facility] [address] [place], [address] GAP 10 Normal 5-15 [facility] Comment on above: Performed By: #### L 500.2500, L100.0100 ####[facility] [address] [place], [address] GFR/1.73 sq M.predicted among non-blacks MDRD (S/P/Bld) [Vol rate/Area] 55 mL/min/{1.73_m2} Low >60 [facility] Comment on above: Result Comment: mL/m in/1.73m2 CKD-EPI Creatinine Equation (2020) Performed By: #### L 500.2500, L100.0100 ####[facility] [address] [place], [address] Glucose [Mass/Vol] 106 mg/dL High 70-99 [facility] Comment on above: Performed By: #### L 500.2500, L100.0100 ####[facility] [address] [place], [address] Potassium [Moles/Vol] 4.7 mmol/L Normal 3.3-5.1 [facility] Comment on above: Performed By: #### L 500.2500, L100.0100 ####[facility] [address] [place], [address] Sodium [Moles/Vol] 130 mmol/L Low 133-145 [facility] Comment on above: Performed By: #### L 500.2500, L100.0100 ####[facility] [address] [place], [address] Urea nitrogen [Mass/Vol] 31 mg/dL High 4-19 [facility] Comment on above: Performed By: #### L 500.2500, L100.0100 ####[facility] [address] [place], [address] Basophil percentageOrdered B y: Waleska Phillips on 12-02-2024 Basophils/100 WBC (Bld) 0.6 % 0-1 [facility] CBC W/Diff, Automatedon 08 Absolute Lymph 1.09 X10 3/uL Normal 0.83-4.51 [facility] Comment on above: Performed By: #### L 500.2500, L100.0100 ####[facility] [address] [place], [address] Absolute Neut 7.1 X10 3/uL Normal 2.0-7.7 [facility] Comment on above: Performed By: #### L 500.2500, L100.0100 ####[facility] [address] [place], [address] Basophils/100 WBC (Bld) 0.6 % Normal 0-1 [facility] Comment on above: Performed By: #### L 500.2500, L100.0100 ####[facility] [address] [place], [address] Eosinophils/100 WBC (Bld) 3.1 % Normal 0-5 [facility] Comment on above: Performed By: #### L 500.2500, L100.0100 ####[facility] [address] [place], [address] Erythrocyte distribution width (RBC) [Ratio] 14.7 % High 11.6-14.6 [facility] Comment on above: Performed By: #### L 500.2500, L100.0100 ####[facility] [address] [place], [address] Hematocrit (Bld) [Volume fraction] 31.5 % Low 37-47 [facility] Comment on above: Performed By: #### L 500.2500, L100.0100 ####[facility] [address] [place], [address] Hemoglobin (Bld) [Mass/Vol] 10.4 g/dL Low 12.0-15.0 [facility] Comment on above: Performed By: #### L 500.2500, L100.0100 ####[facility] [address] [place], [address] IG% 0.700 Normal 0.0-0.9 [facility] Comment on above: Result Comment: IG% - Immature Granulocytes (promyelocytes, myelocytes andmetamyelocytes) > 1% indicates that a LEFT SHIFT is Present. Performed By: #### L 500.2500, L100.0100 ####[facility] [address] [place], [address] Lymphocytes/100 WBC (Bld) 11.2 % Low 19-41 [facility] Comment on above: Performed By: #### L 500.2500, L100.0100 ####[facility] [address] [place], [address] MCH (RBC) [Entitic mass] 29.9 pg Normal 27.0-32.0 [facility] Comment on above: Performed By: #### L 500.2500, L100.0100 ####[facility] [address] [place], [address] MCHC (RBC) [Mass/Vol] 33.0 g/dL Normal 32-36 [facility] Comment on above: Performed By: #### L 500.2500, L100.0100 ####[facility] [address] [place], [address] MCV (RBC) [Entitic vol] 90.5 fL Normal 81-99 [facility] Comment on above: Performed By: #### L 500.2500, L100.0100 ####[facility] [address] [place], [address] Monocytes/100 WBC (Bld) 11.7 % High 0-10 [facility] Comment on above: Performed By: #### L 500.2500, L100.0100 ####[facility] [address] [place], [address] Neutrophils/100 WBC (Bld) 72.7 % High 47-70 [facility] Comment on above: Performed By: #### L 500.2500, L100.0100 ####[facility] [address] [place], [address] Nucleated RBC (Bld) [#/Vol] 0 10*3/uL Normal 0-5 [facility] Comment on above: Performed By: #### L 500.2500, L100.0100 ####[facility] [address] [place], [address] Platelet mean volume (Bld) [Entitic vol] 10.3 fL Normal 6.2-12.0 [facility] Comment on above: Performed By: #### L 500.2500, L100.0100 ####[facility] [address] [place], [address] Platelets (Bld) [#/Vol] 193 10*3/uL Normal 150-450 [facility] Comment on above: Performed By: #### L 500.2500, L100.0100 ####[facility] [address] [place], [address] RBC (Bld) [#/Vol] 3.48 10*6/uL Low 4.2-5.4 [facility] Comment on above: Performed By: #### L 500.2500, L100.0100 ####[facility] [address] [place], [address] RDW SD 49.0 fl High 35.1-43.9 [facility] Comment on above: Performed By: #### L 500.2500, L100.0100 ####[facility] [address] [place], [address] WBC (Bld) [#/Vol] 9.7 10*3/uL Normal 4.4-11.0 [facility] Comment on above: Performed By: #### L 500.2500, L100.0100 ####[facility] [address] [place], [address] Eosinophil percentageOrdered By: Waleska Phillips on 12-02-2024 Eosinophils/100 WBC (Bld) 3.1 % 0-5 [facility] Immature granulocytes/100 WB C Auto (Bld)Ordered By: Waleska Phillips on 12-02-2024 Immature granulocytes/100 WBC (Bld) 0.700 % 0.0-0.9 [facility] Comment on above: IG% - Immature Granu locytes (promyelocytes, myelocytes and metamyelocytes) > 1% indicates that a LEFT SHIFT is Present. Monocyte percentageOrdered B y: Waleska Phillips on 12-02-2024 Monocytes/100 WBC (Bld) 11.7 % High 0-10 [facility] Neutrophil percentageOrdered By: Waelska Phillips on 12-02-2024 Neutrophils/100 WBC (Bld) 72.7 % High 47-70 [facility] Nucleated red blood cell per centageOrdered By: Waleska Phillips on 12-02-2024 Nucleated RBC/100 WBC (Bld) [Ratio] 0 % 0-5 [facility] Basic Metabolic Profile (BMP )on 12-01-2024 BUN/CRE 26.4 RATIO High 10-20 [facility] Comment on above: Performed By: #### L 100.0100, L500.2500 ####[facility] [address] [place], [address] Calcium [Mass/Vol] 8.4 mg/dL Normal 7.6-11.0 [facility] Comment on above: Performed By: #### L 100.0100, L500.2500 ####[facility] [address] [place], [address] Chloride [Moles/Vol] 96 mmol/L Low 98-108 [facility] Comment on above: Performed By: #### L 100.0100, L500.2500 ####[facility] [address] [place], [address] CO2 [Moles/Vol] 26.3 mmol/L Normal 21.0-32.0 [facility] Comment on above: Performed By: #### L 100.0100, L500.2500 ####[facility] [address] [place], [address] Creatinine [Mass/Vol] 1.23 mg/dL High 0.70-1.20 [facility] Comment on above: Performed By: #### L 100.0100, L500.2500 ####[facility] [address] [place], [address] ECRCL 41.95 ml/min Low 50-250 [facility] Comment on above: Performed By: #### L 100.0100, L500.2500 ####[facility] [address] [place], [address] GAP 9 Normal 5-15 [facility] Comment on above: Performed By: #### L 100.0100, L500.2500 ####[facility] [address] [place], [address] GFR/1.73 sq M.predicted among non-blacks MDRD (S/P/Bld) [Vol rate/Area] 44 mL/min/{1.73_m2} Low >60 [facility] Comment on above: Result Comment: mL/m in/1.73m2 CKD-EPI Creatinine Equation (2020) Performed By: #### L 100.0100, L500.2500 ####[facility] [address] [place], [address] Glucose [Mass/Vol] 110 mg/dL High 70-99 [facility] Comment on above: Performed By: #### L 100.0100, L500.2500 ####[facility] [address] [place], [address] Potassium [Moles/Vol] 4.7 mmol/L Normal 3.3-5.1 [facility] Comment on above: Performed By: #### L 100.0100, L500.2500 ####[facility] [address] [place], [address] Sodium [Moles/Vol] 131 mmol/L Low 133-145 [facility] Comment on above: Performed By: #### L 100.0100, L500.2500 ####[facility] [address] [place], [address] Urea nitrogen [Mass/Vol] 33 mg/dL High 4-19 [facility] Comment on above: Performed By: #### L 100.0100, L500.2500 ####[facility] [address] [place], [address] CBC W/Diff, Automatedon 08-0 -2024 Absolute Lymph 1.16 X10 3/uL Normal 0.83-4.51 [facility] Comment on above: Performed By: #### L 100.0100, L500.2500 ####[facility] [address] [place], [address] Absolute Neut 6.3 X10 3/uL Normal 2.0-7.7 [facility] Comment on above: Performed By: #### L 100.0100, L500.2500 ####[facility] [address] [place], [address] Basophils/100 WBC (Bld) 0.6 % Normal 0-1 [facility] Comment on above: Performed By: #### L 100.0100, L500.2500 ####[facility] [address] [place], [address] Eosinophils/100 WBC (Bld) 2.9 % Normal 0-5 [facility] Comment on above: Performed By: #### L 100.0100, L500.2500 ####[facility] [address] [place], [address] Erythrocyte distribution width (RBC) [Ratio] 14.8 % High 11.6-14.6 [facility] Comment on above: Performed By: #### L 100.0100, L500.2500 ####[facility] [address] [place], [address] Hematocrit (Bld) [Volume fraction] 31.7 % Low 37-47 [facility] Comment on above: Performed By: #### L 100.0100, L500.2500 ####[facility] [address] [place], [address] Hemoglobin (Bld) [Mass/Vol] 10.5 g/dL Low 12.0-15.0 [facility] Comment on above: Performed By: #### L 100.0100, L500.2500 ####[facility] [address] [place], [address] IG% 0.300 Normal 0.0-0.9 [facility] Comment on above: Result Comment: IG% - Immature Granulocytes (promyelocytes, myelocytes andmetamyelocytes) > 1% indicates that a LEFT SHIFT is Present. Performed By: #### L 100.0100, L500.2500 ####[facility] [address] [place], [address] Lymphocytes/100 WBC (Bld) 13.0 % Low 19-41 [facility] Comment on above: Performed By: #### L 100.0100, L500.2500 ####[facility] [address] [place], [address] MCH (RBC) [Entitic mass] 29.9 pg Normal 27.0-32.0 [facility] Comment on above: Performed By: #### L 100.0100, L500.2500 ####[facility] [address] [place], [address] MCHC (RBC) [Mass/Vol] 33.1 g/dL Normal 32-36 [facility] Comment on above: Performed By: #### L 100.0100, L500.2500 ####[facility] [address] [place], [address] MCV (RBC) [Entitic vol] 90.3 fL Normal 81-99 [facility] Comment on above: Performed By: #### L 100.0100, L500.2500 ####[facility] [address] [place], [address] Monocytes/100 WBC (Bld) 12.3 % High 0-10 [facility] Comment on above: Performed By: #### L 100.0100, L500.2500 ####[facility] [address] [place], [address] Neutrophils/100 WBC (Bld) 70.9 % High 47-70 [facility] Comment on above: Performed By: #### L 100.0100, L500.2500 ####[facility] [address] [place], [address] Nucleated RBC (Bld) [#/Vol] 0 10*3/uL Normal 0-5 [facility] Comment on above: Performed By: #### L 100.0100, L500.2500 ####[facility] [address] [place], [address] Platelet mean volume (Bld) [Entitic vol] 10.1 fL Normal 6.2-12.0 [facility] Comment on above: Performed By: #### L 100.0100, L500.2500 ####[facility] [address] [place], [address] Platelets (Bld) [#/Vol] 196 10*3/uL Normal 150-450 [facility] Comment on above: Performed By: #### L 100.0100, L500.2500 ####[facility] [address] [place], [address] RBC (Bld) [#/Vol] 3.51 10*6/uL Low 4.2-5.4 [facility] Comment on above: Performed By: #### L 100.0100, L500.2500 ####[facility] [address] [place], [address] RDW SD 48.8 fl High 35.1-43.9 [facility] Comment on above: Performed By: #### L 100.0100, L500.2500 ####[facility] [address] [place], [address] WBC (Bld) [#/Vol] 8.9 10*3/uL Normal 4.4-11.0 [facility] Comment on above: Performed By: #### L 100.0100, L500.2500 ####[facility] [address] [place], [address] MR/CON.PCM.NEon 12-01-2024 MR/CON.PCM.NE Normal [facility] Amphetamine detection with 1 000 ng/mL as cutoffOrdered By: Tacho Goncalves on 11-30-2024 Amphetamines Screen method >1000 ng/mL Ql (U) Negative < 200 ng/mL [facility] Bilirubin, totalOrdered By: Tacho Goncalves on 11-30-2024 Bilirubin [Mass/Vol] 0.50 mg/dL 0.00-1.30 [facility] Brain/Head without Contrasto n 11-30-2024 Brain/Head without Contrast Normal [facility] CBC W/Diff, Automatedon - Absolute Lymph 0.89 X10 3/uL Normal 0.83-4.51 [facility] Comment on above: Performed By: #### L 500.4100, L501.2300, L500.4050, L100.0100 ####[facility] [address] [place], [address] Absolute Neut 6.9 X10 3/uL Normal 2.0-7.7 [facility] Comment on above: Performed By: #### L 500.4100, L501.2300, L500.4050, L100.0100 ####[facility] [address] [place], [address] Basophils/100 WBC (Bld) 0.5 % Normal 0-1 [facility] Comment on above: Performed By: #### L 500.4100, L501.2300, L500.4050, L100.0100 ####[facility] [address] [place], [address] Eosinophils/100 WBC (Bld) 2.8 % Normal 0-5 [facility] Comment on above: Performed By: #### L 500.4100, L501.2300, L500.4050, L100.0100 ####[facility] [address] [place], [address] Erythrocyte distribution width (RBC) [Ratio] 14.6 % Normal 11.6-14.6 [facility] Comment on above: Performed By: #### L 500.4100, L501.2300, L500.4050, L100.0100 ####[facility] [address] [place], [address] Hematocrit (Bld) [Volume fraction] 33.8 % Low 37-47 [facility] Comment on above: Performed By: #### L 500.4100, L501.2300, L500.4050, L100.0100 ####[facility] [address] [place], [address] Hemoglobin (Bld) [Mass/Vol] 11.2 g/dL Low 12.0-15.0 [facility] Comment on above: Performed By: #### L 500.4100, L501.2300, L500.4050, L100.0100 ####[facility] [address] [place], [address] IG% 0.700 Normal 0.0-0.9 [facility] Comment on above: Result Comment: IG% - Immature Granulocytes (promyelocytes, myelocytes andmetamyelocytes) > 1% indicates that a LEFT SHIFT is Present. Performed By: #### L 500.4100, L501.2300, L500.4050, L100.0100 ####[facility] [address] [place], [address] Lymphocytes/100 WBC (Bld) 9.5 % Low 19-41 [facility] Comment on above: Performed By: #### L 500.4100, L501.2300, L500.4050, L100.0100 ####[facility] [address] [place], [address] MCH (RBC) [Entitic mass] 30.1 pg Normal 27.0-32.0 [facility] Comment on above: Performed By: #### L 500.4100, L501.2300, L500.4050, L100.0100 ####[facility] [address] [place], [address] MCHC (RBC) [Mass/Vol] 33.1 g/dL Normal 32-36 [facility] Comment on above: Performed By: #### L 500.4100, L501.2300, L500.4050, L100.0100 ####[facility] [address] [place], [address] MCV (RBC) [Entitic vol] 90.9 fL Normal 81-99 [facility] Comment on above: Performed By: #### L 500.4100, L501.2300, L500.4050, L100.0100 ####[facility] [address] [place], [address] Monocytes/100 WBC (Bld) 13.0 % High 0-10 [facility] Comment on above: Performed By: #### L 500.4100, L501.2300, L500.4050, L100.0100 ####[facility] [address] [place], [address] Neutrophils/100 WBC (Bld) 73.5 % High 47-70 [facility] Comment on above: Performed By: #### L 500.4100, L501.2300, L500.4050, L100.0100 ####[facility] [address] [place], [address] Nucleated RBC (Bld) [#/Vol] 0 10*3/uL Normal 0-5 [facility] Comment on above: Performed By: #### L 500.4100, L501.2300, L500.4050, L100.0100 ####[facility] [address] [place], [address] Platelet mean volume (Bld) [Entitic vol] 9.7 fL Normal 6.2-12.0 [facility] Comment on above: Performed By: #### L 500.4100, L501.2300, L500.4050, L100.0100 ####[facility] [address] [place], [address] Platelets (Bld) [#/Vol] 212 10*3/uL Normal 150-450 [facility] Comment on above: Performed By: #### L 500.4100, L501.2300, L500.4050, L100.0100 ####[facility] [address] [place], [address] RBC (Bld) [#/Vol] 3.72 10*6/uL Low 4.2-5.4 [facility] Comment on above: Performed By: #### L 500.4100, L501.2300, L500.4050, L100.0100 ####[facility] [address] [place], [address] RDW SD 48.4 fl High 35.1-43.9 [facility] Comment on above: Performed By: #### L 500.4100, L501.2300, L500.4050, L100.0100 ####[facility] [address] [place], [address] WBC (Bld) [#/Vol] 9.4 10*3/uL Normal 4.4-11.0 [facility] Comment on above: Performed By: #### L 500.4100, L501.2300, L500.4050, L100.0100 ####[facility] [address] [place], [address] Calculated very low density lipoprotein (VLDL) cholesterol measurementOrdered By: Tacho Goncalves on 11-30-2024 Calculated very low density lipoprotein (VLDL) cholesterol measurement 18 mg/dL 5-40 [facility] Comprehensive Metabolic Prof ilon 11-30-2024 Albumin [Mass/Vol] 3.6 g/dL Normal 3.4-4.8 [facility] Comment on above: Performed By: #### L 500.4100, L501.2300, L500.4050, L100.0100 ####[facility] [address] [place], [address] Albumin/Globulin [Mass ratio] 1.6 {ratio} Normal 0.9-2.4 [facility] Comment on above: Performed By: #### L 500.4100, L501.2300, L500.4050, L100.0100 ####[facility] [address] [place], [address] ALK PHOS 58 U/L Normal 35-104 [facility] Comment on above: Performed By: #### L 500.4100, L501.2300, L500.4050, L100.0100 ####[facility] [address] [place], [address] ALT [Catalytic activity/Vol] 36 U/L High <=34 [facility] Comment on above: Performed By: #### L 500.4100, L501.2300, L500.4050, L100.0100 ####[facility] [address] [place], [address] AST [Catalytic activity/Vol] 25 U/L Normal <=31 [facility] Comment on above: Performed By: #### L 500.4100, L501.2300, L500.4050, L100.0100 ####[facility] [address] [place], [address] Bilirubin [Mass/Vol] 0.50 mg/dL Normal 0.00-1.30 [facility] Comment on above: Performed By: #### L 500.4100, L501.2300, L500.4050, L100.0100 ####[facility] [address] [place], [address] BUN/CRE 27.8 RATIO High 10-20 [facility] Comment on above: Performed By: #### L 500.4100, L501.2300, L500.4050, L100.0100 ####[facility] [address] [place], [address] Calcium [Mass/Vol] 8.9 mg/dL Normal 7.6-11.0 [facility] Comment on above: Performed By: #### L 500.4100, L501.2300, L500.4050, L100.0100 ####[facility] [address] [place], [address] Chloride [Moles/Vol] 99 mmol/L Normal 98-108 [facility] Comment on above: Performed By: #### L 500.4100, L501.2300, L500.4050, L100.0100 ####[facility] [address] [place], [address] CO2 [Moles/Vol] 26.1 mmol/L Normal 21.0-32.0 [facility] Comment on above: Performed By: #### L 500.4100, L501.2300, L500.4050, L100.0100 ####[facility] [address] [place], [address] Creatinine [Mass/Vol] 1.25 mg/dL High 0.70-1.20 [facility] Comment on above: Performed By: #### L 500.4100, L501.2300, L500.4050, L100.0100 ####[facility] [address] [place], [address] ECRCL 41.49 ml/min Low 50-250 [facility] Comment on above: Performed By: #### L 500.4100, L501.2300, L500.4050, L100.0100 ####[facility] [address] [place], [address] GAP 10 Normal 5-15 [facility] Comment on above: Performed By: #### L 500.4100, L501.2300, L500.4050, L100.0100 ####[facility] [address] [place], [address] GFR/1.73 sq M.predicted among non-blacks MDRD (S/P/Bld) [Vol rate/Area] 43 mL/min/{1.73_m2} Low >60 [facility] Comment on above: Result Comment: mL/m in/1.73m2 CKD-EPI Creatinine Equation (2020) Performed By: #### L 500.4100, L501.2300, L500.4050, L100.0100 ####[facility] [address] [place], [address] Globulin (S) [Mass/Vol] 2.3 g/dL Normal 2.2-4.2 [facility] Comment on above: Performed By: #### L 500.4100, L501.2300, L500.4050, L100.0100 ####[facility] [address] [place], [address] Glucose [Mass/Vol] 111 mg/dL High 70-99 [facility] Comment on above: Performed By: #### L 500.4100, L501.2300, L500.4050, L100.0100 ####[facility] [address] [place], [address] Potassium [Moles/Vol] 4.7 mmol/L Normal 3.3-5.1 [facility] Comment on above: Performed By: #### L 500.4100, L501.2300, L500.4050, L100.0100 ####[facility] [address] [place], [address] Sodium [Moles/Vol] 136 mmol/L Normal 133-145 [facility] Comment on above: Performed By: #### L 500.4100, L501.2300, L500.4050, L100.0100 ####[facility] [address] [place], [address] T PROT 5.9 g/dL Normal 5.9-8.4 [facility] Comment on above: Performed By: #### L 500.4100, L501.2300, L500.4050, L100.0100 ####[facility] [address] [place], [address] Urea nitrogen [Mass/Vol] 35 mg/dL High 4-19 [facility] Comment on above: Performed By: #### L 500.4100, L501.2300, L500.4050, L100.0100 ####[facility] [address] [place], [address] Echocardiogram study reportO rdered By: Gallo Hickey on 11-30-2024 Study report [facility] [address] [place] [address] Echo Complete 11/30/24 1044 MR#: [id number] Acct: [id number] Name: MICHAEL MEIER Rep #:[id number] : 1940 84 From: Gallo Souza [...] Date Dictated: 11/30/24 1044 Date Transcribed: 11/30/241654 Hole Puncher Strap: Signed [facility] Work Phone: Folate [Mass/volume] in Seru m or PlasmaOrdered By: Tacho Goncalves on 11-30-2024 Folate [Mass/Vol] 26.00 ng/mL 4.60-34.80 [facility] Folates,Serum (Folic Acid)on 11-30-2024 FOLATES,SERUM 26.00 ng/mL Normal 4.60-34.80 [facility] Comment on above: Order Comment: N Performed By: #### L 506.0200 ####[facility] [address] [place], [address] LDL calc ser/plasOrdered By: Tacho Goncalves on 11-30-2024 Cholesterol in LDL [Mass/Vol] 53 mg/dL [facility] Comment on above: Fbsbiksngs=995-721 m g/dL & Higher Pstn=412 mg/dL or greaterFriedwald Equation for LDL-C Laboratory - Chemistry and C hemistry - challengeOrdered By: Tacho Goncalves on 11-30-2024 AST [Catalytic activity/Vol] 25 U/L <32 [facility] Lipid Profileon 11-30-2024 CHOL:HDL 1.91 Normal [facility] Comment on above: Performed By: #### L 500.4100, L501.2300, L500.4050, L100.0100 ####[facility] [address] [place], [address] Cholesterol [Mass/Vol] 148 mg/dL Normal <=200 [facility] Comment on above: Result Comment: Chol esterol level, Desirable <200 mg/dLBorderline high cholesterol 200-239 mg/dLHigh cholesterol >=240 mg/dLRecommendations of the NCEP Adult Treatment Panel for thefollowing risk-cutoff thresholds for the [place] Americanpulation. Performed By: #### L 500.4100, L501.2300, L500.4050, L100.0100 ####[facility] [address] [place], [address] Cholesterol in HDL [Mass/Vol] 78 mg/dL Normal [facility] Comment on above: Result Comment: Nathalie onal Cholesterol Education Program (NCEP) guidelines:<40 mg/dL: Low HDL-cholesterol (major risk factor for CHD)>= 60 mg/dL: High HDL-cholesterol (negative risk factor forCHD)HDL-cholesterol is affected by a number of factors, e.g.smoking, exercise, hormones, sex and age. Performed By: #### L 500.4100, L501.2300, L500.4050, L100.0100 ####[facility] [address] [place], [address] Cholesterol in LDL [Mass/Vol] 53 mg/dL Normal [facility] Comment on above: Result Comment: Bord phosdr=171-685 mg/dL Higher Refo=655 mg/dL or greaterFriedwald Equation for LDL-C Performed By: #### L 500.4100, L501.2300, L500.4050, L100.0100 ####[facility] [address] [place], [address] Cholesterol in VLDL [Mass/Vol] 18 mg/dL Normal 5-40 [facility] Comment on above: Performed By: #### L 500.4100, L501.2300, L500.4050, L100.0100 ####[facility] [address] [place], [address] Triglyceride [Mass/Vol] 88 mg/dL Normal [facility] Comment on above: Result Comment: The drugs N-Acetylcysteine and Metamizole may falselydepress this assay.Normal range: <150 mg/dLBorderline High: 150-199 mg/dLHigh: 200-499 mg/dLVery High: >500 mg/dL Performed By: #### L 500.4100, L501.2300, L500.4050, L100.0100 ####[facility] [address] [place], [address] No Panel InformationOrdered By: Tacho Goncalves on 11-30-2024 Urine Buprenorphine Qualitative Negative < 200 ng/mL [facility] Urine Oxycodone Screen Negative < 100 ng/mL [facility] Negative < 200 ng/mL [facility] 25 U/L <32 [facility] Phosphoruson 11-30-2024 Phosphate [Mass/Vol] 3.8 mg/dL Normal 2.7-4.5 [facility] Comment on above: Performed By: #### L 500.4100, L501.2300, L500.4050, L100.0100 ####[facility] [address] [place], [address] Quantitative urine opiates m easurementOrdered By: Tacho Goncalves on 11-30-2024 Opiates Ql (U) Negative < 300 ng/mL [facility] Screening total cholesterol/ high density lipoprotein (HDL) cholesterol ratioOrdered By: Tacho Goncalves on 11-30-2024 Cholesterol.total/Kathy sterol in HDL [Mass ratio] 1.91 {ratio} [facility] Screening urine fentanyl theresa surementOrdered By: Tacho Goncalves on 11-30-2024 fentaNYL Screen Ql (U) Negative [facility] Serum globulin measurementOr dered By: Tacho Goncalves on 11-30-2024 Globulin (S) [Mass/Vol] 2.3 g/dL 2.2-4.2 [facility] Serum or plasma alanine sprague otransferase (ALT) measurementOrdered By: Tacho Goncalves on 11-30-2024 ALT [Catalytic activity/Vol] 36 U/L High <35 [facility] Serum or plasma albumin julee urement (mass/volume)Ordered By: Tacho Goncalves on 11-30-2024 Albumin [Mass/Vol] 3.6 g/dL 3.4-4.8 [facility] Serum or plasma albumin/glob ulin mass ratioOrdered By: Tacho Goncalves on 11-30-2024 Albumin/Globulin [Mass ratio] 1.6 {ratio} 0.9-2.4 [facility] Serum or plasma alkaline rachel sphatase measurementOrdered By: Tacho Goncalves on 11-30-2024 ALP [Catalytic activity/Vol] 58 U/L 35-104 [facility] Serum or plasma cholesterol in HDL measurement (mass/volume)Ordered By: Tacho Goncalves on 11-30-2024 Cholesterol in HDL [Mass/Vol] 78 mg/dL >40 [facility] Comment on above: National Cholesterol Education Program (NCEP) guidelines:<40 mg/dL: Low HDL-cholesterol (major risk factor for CHD)>= 60 mg/dL: High HDL-cholesterol (negative risk factor for CHD)HDL-cholesterol is affected by a number of factors, e.g. smoking, exercise, hormones, sex and age. Serum or plasma cholesterol measurement (mass/volume)Ordered By: Tacho Goncalves on 11-30-2024 Cholesterol [Mass/Vol] 148 mg/dL <201 [facility] Comment on above: Cholesterol level, D esirable <200 mg/dLBorderline high cholesterol 200-239 mg/dLHigh cholesterol >=240 mg/dLRecommendations of the NCEP Adult Treatment Panel for the following risk-cutoff thresholds for the [place] population. Total proteinOrdered By: Richard Goncalves on 11-30-2024 Protein [Mass/Vol] 5.9 g/dL 5.9-8.4 [facility] Triglycerides measurementOrd ered By: Tacho Gnocalves on 11-30-2024 Triglyceride [Mass/Vol] 88 mg/dL <199 [facility] Comment on above: The drugs N-Acetylcy steine and Metamizole may falsely depress this assay. Normal range: <150 mg/dLBorderline High: 150-199 mg/dLHigh: 200-499 mg/dLVery High: >500 mg/dL Urine Drug Screen ([facility]IST[facility])on 11-30-2024 AMPHETAMINES Negative Normal <1000 ng/mL [facility] Comment on above: Order Comment: NEEDI NG A SAMPLE. [facility] 11-30-24UNK Performed By: #### L [id number], L501.9100, L501.9985, L501.5200, L505.5000 ####[facility] [address] [place], [place], [id number] BARBITIURATES Negative Normal < 200 ng/mL [facility] Comment on above: Order Comment: NEEDI NG A SAMPLE. [facility] 11-30-24UNK Performed By: #### L 501.9520, L501.9100, L501.9985, L501.5200, L505.5000 ####[facility] [address] [place], [address] BENZODIAZIPINE Positive Normal < 200 ng/mL [facility] Comment on above: Order Comment: NEEDI NG A SAMPLE. [facility] 11-30-24UNK Result Comment: If c onfirmation testing is needed, a separate order will berequired to send out testing to the reference laboratory. Performed By: #### L 501.9520, L501.9100, L501.9985, L501.5200, L505.5000 ####[facility] [address] [place], [address] BUP Ur Drug Scr Negative Normal < 200 ng/mL [facility] Comment on above: Order Comment: NEEDI NG A SAMPLE. [facility] 11-30-24UNK Performed By: #### L 501.9520, L501.9100, L501.9985, L501.5200, L505.5000 ####[facility] [address] [place], [place], [phone] COCAINE Negative Normal < 300 ng/mL [facility] Comment on above: Order Comment: NEEDI NG A SAMPLE. [facility] 11-30-24UNK Performed By: #### L 501.9520, L501.9100, L501.9985, L501.5200, L505.5000 ####[facility] [address] [place], [place], [phone] Fentanyl Negative Normal [facility] Comment on above: Order Comment: NEEDI NG A SAMPLE. [facility] 11-30-24UNK Performed By: #### L 501.9520, L501.9100, L501.9985, L501.5200, L505.5000 ####[facility] [address] [place], [place], [phone] METHADONE Negative Normal < 300 ng/mL [facility] Comment on above: Order Comment: NEEDI NG A SAMPLE. [facility] 11-30-24UNK Performed By: #### L 501.9520, L501.9100, L501.9985, L501.5200, L505.5000 ####[facility] [address] [place], [address] OPIATES Negative Normal < 300 ng/mL [facility] Comment on above: Order Comment: NEEDI NG A SAMPLE. B 11-30-24UNK Performed By: #### L 501.9520, L501.9100, L501.9985, L501.5200, L505.5000 ####[facility] [address] [place], [address] OXYCODONE Negative Normal < 100 ng/mL [facility] Comment on above: Order Comment: NEEDI NG A SAMPLE. B 11-30-24UNK Performed By: #### L 501.9520, L501.9100, L501.9985, L501.5200, L505.5000 ####[facility] [address] [place], [address] PCP Negative Normal < 25 ng/mL [facility] Comment on above: Order Comment: NEEDI NG A SAMPLE. B 11-30-24UNK Performed By: #### L 501.9520, L501.9100, L501.9985, L501.5200, L505.5000 ####[facility] [address] [place], [address] THC Negative Normal < 50 ng/mL [facility] Comment on above: Order Comment: NEEDI NG A SAMPLE. [facility] 11-30-24UNK Performed By: #### L 501.9520, L501.9100, L501.9985, L501.5200, L505.5000 ####[facility] [address] [place], [address] Urine benzodiazepine levelOr dered By: Tacho Goncalves on 11-30-2024 Benzodiazepines Ql (U) Positive < 200 ng/mL [facility] Comment on above: If confirmation test ing is needed, a separate order will be required to send out testing to the reference laboratory. Urine cocaine levelOrdered B y: Tacho Sacha on 11-30-2024 Cocaine Ql (U) Negative < 300 ng/mL [facility] Urine qyhew-1-hkyjdyooafhqyd abinol (THC) measurementOrdered By: Tacho Goncalves on 11-30-2024 Cannabinoids Screen Ql (U) Negative < 50 ng/mL [facility] Urine phencyclidine (PCP) de tectionOrdered By: Tacho Goncalves on 11-30-2024 Phencyclidine Ql (U) Negative < 25 ng/mL [facility] Vitamin B12on 11-30-2024 Cobalamin (Vitamin B12) [Mass/Vol] 2838 pg/mL High 180-914 [facility] Comment on above: Performed By: #### L 503.0106 ####[facility] [address] [place], [place], [id number] Absolute lymphocyte countOrd ered By: Virgil Tyler on 11-29-2024 Lymphocytes Auto (Unsp spec) [#/Vol] 1.10 10*3/uL 0.83-4.51 [facility] Absolute neutrophil countOrd ered By: Virgil Tyler on 11-29-2024 Neutrophils (Bld) [#/Vol] 7.0 10*3/uL 2.0-7.7 [facility] Alcohol, Blood (Medical)-Ser umon 11-29-2024 SERUM ETOH < 10.1 Normal <=10.0 [facility] Comment on above: Result Comment: This test is for medical purposes only. The legaldefinition of intoxication varies according to local law. Performed By: #### L 501.9520, L501.9100, L501.9985, L501.5200, L505.5000 ####[facility] [address] [place], [place], [id number] Anion gap in Serum or Plasma Ordered By: Virgil Tyler on 11-29-2024 Anion gap [Moles/Vol] 12 mmol/L 5-15 [facility] Automated lymphocyte count a s percentage of total leukocytesOrdered By: Virgil Tyler on 11-29-2024 Lymphocytes/100 WBC Auto (Unsp spec) 11.5 % Low 19-41 [facility] BUN/creatinine ratioOrdered By: Virgil Tyler on 11-29-2024 Urea nitrogen/Creatinine [Mass ratio] 34.3 mg/mg High 10-20 [facility] Basophil percentageOrdered B y: Virgil Tyler on 11-29-2024 Basophils/100 WBC (Bld) 0.6 % 0-1 [facility] Bilirubin Test strip Ql (U)O rdered By: Virgil Tyler on 11-29-2024 Bilirubin Ql (U) Negative Negative [facility] Bilirubin, totalOrdered By: Virgil Tyler on 11-29-2024 Bilirubin [Mass/Vol] 0.57 mg/dL 0.00-1.30 [facility] Brain/Head without Contrasto n 11-29-2024 Brain/Head without Contrast Normal [facility] CBC W/Diff, Automatedon 11-02 Absolute Lymph 1.10 X10 3/uL Normal 0.83-4.51 [facility] Comment on above: Performed By: #### L 501.9520, L501.2450, L100.0100, L500.4050 ####[facility] [address] [place], [address] Absolute Neut 7.0 X10 3/uL Normal 2.0-7.7 [facility] Comment on above: Performed By: #### L 501.9520, L501.2450, L100.0100, L500.4050 ####[facility] [address] [place], [address] Basophils/100 WBC (Bld) 0.6 % Normal 0-1 [facility] Comment on above: Performed By: #### L 501.9520, L501.2450, L100.0100, L500.4050 ####[facility] [address] [place], [address] Eosinophils/100 WBC (Bld) 2.9 % Normal 0-5 [facility] Comment on above: Performed By: #### L 501.9520, L501.2450, L100.0100, L500.4050 ####[facility] [address] [place], [address] Erythrocyte distribution width (RBC) [Ratio] 14.4 % Normal 11.6-14.6 [facility] Comment on above: Performed By: #### L 501.9520, L501.2450, L100.0100, L500.4050 ####[facility] [address] [place], [address] Hematocrit (Bld) [Volume fraction] 34.5 % Low 37-47 [facility] Comment on above: Performed By: #### L 501.9520, L501.2450, L100.0100, L500.4050 ####[facility] [address] [place], [address] Hemoglobin (Bld) [Mass/Vol] 11.6 g/dL Low 12.0-15.0 [facility] Comment on above: Performed By: #### L 501.9520, L501.2450, L100.0100, L500.4050 ####[facility] [address] [place], [address] IG% 0.500 Normal 0.0-0.9 [facility] Comment on above: Result Comment: IG% - Immature Granulocytes (promyelocytes, myelocytes andmetamyelocytes) > 1% indicates that a LEFT SHIFT is Present. Performed By: #### L 501.9520, L501.2450, L100.0100, L500.4050 ####[facility] [address] [place], [address] Lymphocytes/100 WBC (Bld) 11.5 % Low 19-41 [facility] Comment on above: Performed By: #### L 501.9520, L501.2450, L100.0100, L500.4050 ####[facility] [address] [place], [address] MCH (RBC) [Entitic mass] 30.1 pg Normal 27.0-32.0 [facility] Comment on above: Performed By: #### L 501.9520, L501.2450, L100.0100, L500.4050 ####[facility] [address] [place], [address] MCHC (RBC) [Mass/Vol] 33.6 g/dL Normal 32-36 [facility] Comment on above: Performed By: #### L 501.9520, L501.2450, L100.0100, L500.4050 ####[facility] [address] [place], [address] MCV (RBC) [Entitic vol] 89.4 fL Normal 81-99 [facility] Comment on above: Performed By: #### L 501.9520, L501.2450, L100.0100, L500.4050 ####[facility] [address] [place], [address] Monocytes/100 WBC (Bld) 12.1 % High 0-10 [facility] Comment on above: Performed By: #### L 501.9520, L501.2450, L100.0100, L500.4050 ####[facility] [address] [place], [address] Neutrophils/100 WBC (Bld) 72.4 % High 47-70 [facility] Comment on above: Performed By: #### L 501.9520, L501.2450, L100.0100, L500.4050 ####[facility] [address] [place], [address] Nucleated RBC (Bld) [#/Vol] 0 10*3/uL Normal 0-5 [facility] Comment on above: Performed By: #### L 501.9520, L501.2450, L100.0100, L500.4050 ####[facility] [address] [place], [address] Platelet mean volume (Bld) [Entitic vol] 10.2 fL Normal 6.2-12.0 [facility] Comment on above: Performed By: #### L 501.9520, L501.2450, L100.0100, L500.4050 ####[facility] [address] [place], [address] Platelets (Bld) [#/Vol] 201 10*3/uL Normal 150-450 [facility] Comment on above: Performed By: #### L 501.9520, L501.2450, L100.0100, L500.4050 ####[facility] [address] [place], [address] RBC (Bld) [#/Vol] 3.86 10*6/uL Low 4.2-5.4 [facility] Comment on above: Performed By: #### L 501.9520, L501.2450, L100.0100, L500.4050 ####[facility] [address] [place], [address] RDW SD 46.8 fl High 35.1-43.9 [facility] Comment on above: Performed By: #### L 501.9520, L501.2450, L100.0100, L500.4050 ####[facility] [address] [place], [address] WBC (Bld) [#/Vol] 9.6 10*3/uL Normal 4.4-11.0 [facility] Comment on above: Performed By: #### L 501.9520, L501.2450, L100.0100, L500.4050 ####[facility] [address] [place], [address] Carbon dioxide, total [Moles /volume] in Central venous bloodOrdered By: Virgil Tyler on 11-29-2024 CO2 [Moles/Vol] 22.9 mmol/L 21.0-32.0 [facility] Chloride assayOrdered By: Rj Tyler on 11-29-2024 Chloride [Moles/Vol] 98 mmol/L 98-108 [facility] Comprehensive Metabolic Prof ilon 11-29-2024 Albumin [Mass/Vol] 4.0 g/dL Normal 3.4-4.8 [facility] Comment on above: Performed By: #### L 501.9520, L501.2450, L100.0100, L500.4050 ####[facility] [address] [place], [address] Albumin/Globulin [Mass ratio] 1.7 {ratio} Normal 0.9-2.4 [facility] Comment on above: Performed By: #### L 501.9520, L501.2450, L100.0100, L500.4050 ####[facility] [address] [place], [address] ALK PHOS 63 U/L Normal 35-104 [facility] Comment on above: Performed By: #### L 501.9520, L501.2450, L100.0100, L500.4050 ####[facility] [address] [place], [address] ALT [Catalytic activity/Vol] 37 U/L High <=34 [facility] Comment on above: Performed By: #### L 501.9520, L501.2450, L100.0100, L500.4050 ####[facility] [address] [place], [address] AST [Catalytic activity/Vol] 29 U/L Normal <=31 [facility] Comment on above: Performed By: #### L 501.9520, L501.2450, L100.0100, L500.4050 ####[facility] [address] [place], [address] Bilirubin [Mass/Vol] 0.57 mg/dL Normal 0.00-1.30 [facility] Comment on above: Performed By: #### L 501.9520, L501.2450, L100.0100, L500.4050 ####[facility] [address] [place], [address] BUN/CRE 34.3 RATIO High 10-20 [facility] Comment on above: Performed By: #### L 501.9520, L501.2450, L100.0100, L500.4050 ####[facility] [address] [place], [address] Calcium [Mass/Vol] 8.9 mg/dL Normal 7.6-11.0 [facility] Comment on above: Performed By: #### L 501.9520, L501.2450, L100.0100, L500.4050 ####[facility] [address] [place], [address] Chloride [Moles/Vol] 98 mmol/L Normal 98-108 [facility] Comment on above: Performed By: #### L 501.9520, L501.2450, L100.0100, L500.4050 ####[facility] [address] [place], [address] CO2 [Moles/Vol] 22.9 mmol/L Normal 21.0-32.0 [facility] Comment on above: Performed By: #### L 501.9520, L501.2450, L100.0100, L500.4050 ####[facility] [address] [place], [address] Creatinine [Mass/Vol] 1.11 mg/dL Normal 0.70-1.20 [facility] Comment on above: Performed By: #### L 501.9520, L501.2450, L100.0100, L500.4050 ####[facility] [address] [place], [address] ECRCL 48.43 ml/min Low 50-250 [facility] Comment on above: Performed By: #### L 501.9520, L501.2450, L100.0100, L500.4050 ####[facility] [address] [place], [address] GAP 12 Normal 5-15 [facility] Comment on above: Performed By: #### L 501.9520, L501.2450, L100.0100, L500.4050 ####[facility] [address] [place], [address] GFR/1.73 sq M.predicted among non-blacks MDRD (S/P/Bld) [Vol rate/Area] 49 mL/min/{1.73_m2} Low >60 [facility] Comment on above: Result Comment: mL/m in/1.73m2 CKD-EPI Creatinine Equation (2020) Performed By: #### L 501.9520, L501.2450, L100.0100, L500.4050 ####[facility] [address] [place], [address] Globulin (S) [Mass/Vol] 2.4 g/dL Normal 2.2-4.2 [facility] Comment on above: Performed By: #### L 501.9520, L501.2450, L100.0100, L500.4050 ####[facility] [address] [place], [address] Glucose [Mass/Vol] 94 mg/dL Normal 70-99 [facility] Comment on above: Performed By: #### L 501.9520, L501.2450, L100.0100, L500.4050 ####[facility] [address] [place], [address] Potassium [Moles/Vol] 5.0 mmol/L Normal 3.3-5.1 [facility] Comment on above: Result Comment: Hemo lysis present, Results??could be affected.?? Performed By: #### L 501.9520, L501.2450, L100.0100, L500.4050 ####[facility] [address] [place], [address] Sodium [Moles/Vol] 133 mmol/L Normal 133-145 [facility] Comment on above: Performed By: #### L 501.9520, L501.2450, L100.0100, L500.4050 ####[facility] [address] [place], [address] T PROT 6.3 g/dL Normal 5.9-8.4 [facility] Comment on above: Performed By: #### L 501.9520, L501.2450, L100.0100, L500.4050 ####[facility] [address] [place], [address] Urea nitrogen [Mass/Vol] 38 mg/dL High 4-19 [facility] Comment on above: Performed By: #### L 501.9520, L501.2450, L100.0100, L500.4050 ####[facility] [address] [place], [address] Echo Completeon 11-29-2024 Echo Complete Normal [facility] Emergency Department Summary on 11-29-2024 Emergency Department Summary Normal [facility] Eosinophil percentageOrdered By: Virgil Tyler on 11-29-2024 Eosinophils/100 WBC (Bld) 2.9 % 0-5 [facility] Erythrocyte distribution wid th ratioOrdered By: Virgil Tyler on 11-29-2024 Erythrocyte distribution width (RBC) [Ratio] 14.4 % 11.6-14.6 [facility] Erythrocyte distribution wid th standard deviationOrdered By: Virgil Tyler on 11-29-2024 Erythrocyte distribution width (RBC) [Ratio] 46.8 fl High 35.1-43.9 [facility] Glomerular filtration rate ( GFR) estimation/1.73 sq m using serum, plasma, or whole bOrdered By: Virgil Tyler on 11-29-2024 GFR/1.73 sq M.predicted among non-blacks MDRD (S/P/Bld) [Vol rate/Area] 49 mL/min/{1.73_m2} Low >60 [facility] Comment on above: mL/min/1.73m2 CKD-EP I Creatinine Equation (2020) H AND P Exam - [facility] 11-29-2024 H&P Exam - Hospitalist Normal [facility] Hematocrit Auto (Bld) [Volum e fraction]Ordered By: Virgil Tyler on 11-29-2024 Hematocrit (Bld) [Volume fraction] 34.5 % Low 37-47 [facility] Hemoglobin A1con 11-29-2024 HbA1c (Bld) [Mass fraction] 5.7 % Normal <=5.6 [facility] Comment on above: Result Comment: Norm al < 5.7 % Prediabetic 5.7 - 6.4 % Diabetic >or= 6.5 % Please note range changes. Performed By: #### L 501.9520, L501.9100, L501.9985, L501.5200, L505.5000 ####[facility] [address] [place], [place], [id number] Hemoglobin A1c percentageOrd ered By: Tacho Goncalves on 11-29-2024 HbA1c (Bld) [Mass fraction] 5.7 % <5.7 [facility] Comment on above: Normal < 5.7 % Predi abetic 5.7 - 6.4 % Diabetic >or= 6.5 % Please note range changes. Hemoglobin measurementOrdere d By: Virgil Tyler on 11-29-2024 Hemoglobin (Bld) [Mass/Vol] 11.6 g/dL Low 12.0-15.0 [facility] Immature granulocytes/100 WB C Auto (Bld)Ordered By: Virgil Tyler on 11-29-2024 Immature granulocytes/100 WBC (Bld) 0.500 % 0.0-0.9 [facility] Comment on above: IG% - Immature Granu locytes (promyelocytes, myelocytes and metamyelocytes) > 1% indicates that a LEFT SHIFT is Present. Ketones Test strip Ql (U)Ord ered By: Virgil Tyler on 11-29-2024 Ketones Ql (U) Negative Negative [facility] Laboratory - Chemistry and C hemistry - challengeOrdered By: Virgil Tyler on 11-29-2024 AST [Catalytic activity/Vol] 29 U/L <32 [facility] Lipaseon 11-29-2024 Lipase [Catalytic activity/Vol] 20 U/L Normal 13-75 [facility] Comment on above: Result Comment: Tomasa garcia note:LIPASE revised reference range effective 22.New Lipase methodology. Expected to produce lower valuesthan the previous assay method.NEW Reference Range: 13 - 75 U/L Performed By: #### L 501.9520, L501.2450, L100.0100, L500.4050 ####[facility] [address] [place], [place], [id number] Lipase measurementOrdered By : Virgil Tyler on 11-29-2024 Lipase [Catalytic activity/Vol] 20 U/L 13-75 [facility] Comment on above: Please note:LIPASE r evised reference range effective 22. New Lipase methodology. Expected to produce lower values than the previous assay method. NEW Reference Range: 13 - 75 U/L MCV (mean corpuscular volume ) determinationOrdered By: Virgil Tyler on 11-29-2024 MCV (RBC) [Entitic vol] 89.4 fL 81-99 [facility] Magnesiumon 11-29-2024 Magnesium [Mass/Vol] 2.3 mg/dL High 1.5-2.2 [facility] Comment on above: Performed By: #### L 501.9520, L501.9100, L501.9985, L501.5200, L505.5000 ####[facility] [address] [place], [address] Magnesium measurement (mass/ volume)Ordered By: Tacho Goncalves on 11-29-2024 Magnesium (Unsp spec) [Mass/Vol] 2.3 mg/dL High 1.5-2.2 [facility] Mean corpuscular hemoglobin (MCH) determinationOrdered By: Virgil Tyler on 11-29-2024 MCH (RBC) [Entitic mass] 30.1 pg 27.0-32.0 [facility] Mean corpuscular hemoglobin concentration (MCHC) determinationOrdered By: Virgil Tyler on 11-29-2024 MCHC (RBC) [Mass/Vol] 33.6 g/dL 32-36 [facility] Mean platelet volume determi nationOrdered By: Virgil Tyler on 11-29-2024 Platelet mean volume (Bld) [Entitic vol] 10.2 fL 6.2-12.0 [facility] Microscopic analysis of urin e for red blood cells (RBC)Ordered By: Virgil Tyler on 11-29-2024 Microscopic analysis of urine for red blood cells (RBC) 0 SEEN /hpf 0-5 [facility] Monocyte percentageOrdered B y: Virgil Tylre on 11-29-2024 Monocytes/100 WBC (Bld) 12.1 % High 0-10 [facility] Mucus LM Ql (Urine sed)Order ed By: Virgil Tyler on 11-29-2024 Mucus Ql (Urine sed) 0 SEEN /hpf [facility] Neutrophil percentageOrdered By: Virgil Tyler on 11-29-2024 Neutrophils/100 WBC (Bld) 72.4 % High 47-70 [facility] Nitrite Test strip Ql (U)Ord ered By: Virgil Tyler on 11-29-2024 Nitrite Ql (U) Negative Negative [facility] Nucleated red blood cell per centageOrdered By: Virgil Tyler on 11-29-2024 Nucleated RBC/100 WBC (Bld) [Ratio] 0 % 0-5 [facility] Platelet countOrdered By: Rj Tyler on 11-29-2024 Platelets (Bld) [#/Vol] 201 10*3/uL 150-450 [facility] Potassium measurement (mass/ volume)Ordered By: Virgil Tyler on 11-29-2024 Potassium (Unsp spec) [Mass/Vol] 5.0 mmol/L 3.3-5.1 [facility] Comment on above: Hemolysis present, R esults could be affected. Protein Test strip Ql (U)Ord ered By: Virgil Tyler on 11-29-2024 Protein Ql (U) Negative Negative [facility] RBC Auto (Bld) [#/Vol]Ordere d By: Virgil Tyler on 11-29-2024 RBC (Bld) [#/Vol] 3.86 10*6/uL Low 4.2-5.4 [facility] Serum creatinine measurement (mass/volume)Ordered By: Virgil Tyler on 11-29-2024 Creatinine [Mass/Vol] 1.11 mg/dL 0.70-1.20 [facility] Serum globulin measurementOr dered By: Virgil Tyler on 11-29-2024 Globulin (S) [Mass/Vol] 2.4 g/dL 2.2-4.2 [facility] Serum glucose measurement (m ass/volume)Ordered By: Virgil Tyler on 11-29-2024 Glucose [Mass/Vol] 94 mg/dL 70-99 [facility] Serum or plasma alanine sprague otransferase (ALT) measurementOrdered By: Virgil Tyler on 11-29-2024 ALT [Catalytic activity/Vol] 37 U/L High <35 [facility] Serum or plasma albumin julee urement (mass/volume)Ordered By: Virgil Tyler on 11-29-2024 Albumin [Mass/Vol] 4.0 g/dL 3.4-4.8 [facility] Serum or plasma albumin/glob ulin mass ratioOrdered By: Virgil Tyler 11-29-2024 Albumin/Globulin [Mass ratio] 1.7 {ratio} 0.9-2.4 [facility] Serum or plasma alkaline rachel sphatase measurementOrdered By: Virgil Tyler 11-29-2024 ALP [Catalytic activity/Vol] 63 U/L 35-104 [facility] Serum or plasma calcium julee urement (mass/volume)Ordered By: Virgil Tyler on 11-29-2024 Calcium [Mass/Vol] 8.9 mg/dL 7.6-11.0 [facility] Serum or plasma ethanol julee urement (mass/volume)Ordered By: Tacho Goncalves on 11-29-2024 Ethanol [Mass/Vol] mg/dL <10.1 [facility] Comment on above: This test is for med ical purposes only. The legal definition of intoxication varies according to local law. Serum or plasma urea nitroge n measurement (mass/volume)Ordered By: Virgil Tyler on 11-29-2024 Urea nitrogen [Mass/Vol] 38 mg/dL High 4-19 [facility] Sodium levelOrdered By: Virgil Tyler on 11-29-2024 Sodium [Moles/Vol] 133 mmol/L 133-145 [facility] Squamous epithelial cells de tection in urine sediment by light microscopyOrdered By: Virgil Tyler on 11-29-2024 Epithelial cells.squamous LM Ql (Urine sed) 0-5 SEEN /hpf 5-10 [facility] TSH DL <= 0.005 mIU/L QnOrde red By: Virgil Tyler on 11-29-2024 TSH Qn 2.190 uIU/mL 0.300-4.200 [facility] TSH DL <= 0.005 mIU/L QnOrde red By: Tacho Goncalves on 11-29-2024 TSH Qn 2.120 uIU/mL 0.300-4.200 [facility] Thyroid Stim Hormone (TSH)on 11-29-2024 TSH 2.120 uIU/mL Normal 0.300-4.200 [facility] Comment on above: Performed By: #### L 501.9520, L501.9100, L501.9985, L501.5200, L505.5000 ####[facility] [address] [place], [place], [id number] TSH 2.190 uIU/mL Normal 0.300-4.200 [facility] Comment on above: Performed By: #### L 501.9520, L501.2450, L100.0100, L500.4050 ####[facility] [address] [place], [address] Total proteinOrdered By: Leticia Tyler on 11-29-2024 Protein [Mass/Vol] 6.3 g/dL 5.9-8.4 [facility] Urinalysis, Completeon 11-29 EPI,SQUAMOUS 0-5 SEEN Normal 5-10 [facility] Comment on above: Order Comment: LISANDRA CTOR TO SPECIFY Performed By: #### L 400.0001 ####[facility] [address] [place], [address] WBC 0-5 SEEN Normal 0-5 [facility] Comment on above: Order Comment: LISANDRA CTOR TO SPECIFY Performed By: #### L 400.0001 ####[facility] [address] [place], [address] BACTERIA 0 SEEN Normal None Seen [facility] Comment on above: Order Comment: LISANDRA CTOR TO SPECIFY Performed By: #### L 400.0001 ####[facility] [address] [place], [address] Mucus Ql (Urine sed) 0 SEEN Normal [facility] Comment on above: Order Comment: LISANDRA CTOR TO SPECIFY Performed By: #### L 400.0001 ####[facility] [address] [place], [address] RBC 0 SEEN Normal 0-5 [facility] Comment on above: Order Comment: LISANDRA CTOR TO SPECIFY Performed By: #### L 400.0001 ####[facility] [address] [place], [address] Urine clarityOrdered By: Leticia Tyler on 11-29-2024 Clarity (U) Clear Clear [facility] Urine color determinationOrd ered By: Virgil Tyler on 11-29-2024 Color (U) Yellow Yellow [facility] Urine glucose detectionOrder ed By: Virgil Tyler on 11-29-2024 Glucose Ql (U) Normal mg/dl Normal [facility] Urine leukocyte esterase det ection by dipstickOrdered By: Virgil Tyler on 11-29-2024 Leukocyte esterase Test strip Ql (U) 500 /ul High Negative [facility] Urine pHOrdered By: Virgil del real on 11-29-2024 pH (U) 6.0 [pH] 5.0 - 8.0 [facility] Urine sediment bacteria coun t by microscopy (number/high power field)Ordered By: Virgil Tyler on 11-29-2024 Bacteria LM.HPF (Urine sed) [#/Area] 0 /[HPF] None Seen [facility] Urine specific gravity measu rementOrdered By: Virgil Tyler on 11-29-2024 Specific gravity (U) [Rel density] 1.010 1.002-1.030 [facility] Urine urobilinogen measureme ntOrdered By: Virgil Tyler on 11-29-2024 Urobilinogen Ql (U) Normal mg/dl Normal [facility] Vitamin B12 ser/plasOrdered By: Tacho Goncalves on 11-29-2024 Cobalamin (Vitamin B12) [Mass/Vol] 2838 pg/mL High 180-914 [facility] White blood cell (WBC) count Ordered By: Virgil Tyelr on 11-29-2024 WBC (Bld) [#/Vol] 9.6 10*3/uL 4.4-11.0 [facility] White blood cell countOrdere d By: Virgil Tyler on 11-29-2024 White blood cell count 0-5 SEEN /hpf 0-5 [facility] CNPNon 11-10-2024 CNPN [facility]HAEL [facility]IER ([id number]) 1940 F Date Time Provider Department 11/10/24 [facility] your visit today, we recorded the following information about you: Amanda Pratt, GLYNN 11/10/2024 2:50 PM Signed Kell with [facility] calls to let provider know that patient [...] 03/17/2001 5 - Intolerance Comments: nausea, dizzy, "sees things" OPIOIDS-MEPERIDINE AND RELATED 02/17/2001 Comments: nausea/vomiting PENICILLIN [...] % ophthalm (more content not included)... Normal [facility] Cardiology Visit Reporton Cardiology Visit Report Normal [facility] 11-01-2024 LORRI Telephone ([facility]) MICHAEL MEIER ([id number]) 1940 F Date Time Provider Department 11/01/24 KEY PORTILLO During your visit today, we recorded the following information about you: Key Portillo APRN.[facility] 11/01/2024 9:22 AM Signed ----- Message from Sarah Merchant PT sent at 10/27/2024 6:59 PM EDT ----- Gianluca Puga, We're seeing Michael for PT (she was referred by [facility]) and we've also seen her here in the past for ortho/mobility issues. She's been reporting increased Shortness of Breath with minimal activity which I definitely noticed today (I encouraged her to go to ER prn but she doesn't think it's necessary). She's also reporting increased low back pain (mostly with standing AND walking). 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 I also think a spine/pain mgmt consult would be a good idea for the chronic/worsening low back pain. Thanks, Sarah Merchant, PT eKy Portillo APRN.[facility] 11/01/2024 9:22 AM Signed Please see if patient is willing to make appointment due to Shortness of Breath as mentioned below. Thank you, Key Portillo APRN.[facility] CanoMaria Elenaholly Ennis LPN 11/01/2024 12:50 PM Signed Called spoke [...] 03/17/2001 5 - Intolerance Comments: nausea, dizzy, "sees things" OPIOIDS-MEPERIDINE AND RELATED 02/17/2001 Comments: nausea/vomiting PENICILLIN [...] skin [L90.5] (more content not included)... Normal [facility] Absolute lymphocyte countOrd ered By: Anabel Horne on 10-31-2024 Lymphocytes Auto (Unsp spec) [#/Vol] 1.16 10*3/uL 0.83-4.51 [facility] Absolute neutrophil countOrd ered By: Anabel Horne on 10-31-2024 Neutrophils (Bld) [#/Vol] 10.5 10*3/uL High 2.0-7.7 [facility] Anion gap in Serum or Plasma Ordered By: Anabel Horne on 10-31-2024 Anion gap [Moles/Vol] 14 mmol/L 5-15 [facility] Automated lymphocyte count a s percentage of total leukocytesOrdered By: Anabel Horne on 10-31-2024 Lymphocytes/100 WBC Auto (Unsp spec) 8.7 % Low 19-41 [facility] BUN/creatinine ratioOrdered By: Anabel Horne on 10-31-2024 Urea nitrogen/Creatinine [Mass ratio] 26.2 mg/mg High 10-20 [facility] Basic Metabolic Profile (BMP )on 10-31-2024 BUN/CRE 26.2 RATIO High 10-20 [facility] Comment on above: Performed By: #### L 100.0100, L501.9520, L500.2500, L503.7505 ####[facility] [address] [place], [address] Calcium [Mass/Vol] 9.0 mg/dL Normal 7.6-11.0 [facility] Comment on above: Performed By: #### L 100.0100, L501.9520, L500.2500, L503.7505 ####[facility] [address] [place], [address] Chloride [Moles/Vol] 96 mmol/L Low 98-108 [facility] Comment on above: Performed By: #### L 100.0100, L501.9520, L500.2500, L503.7505 ####[facility] [address] [place], [address] CO2 [Moles/Vol] 23.0 mmol/L Normal 21.0-32.0 [facility] Comment on above: Performed By: #### L 100.0100, L501.9520, L500.2500, L503.7505 ####[facility] [address] [place], [address] Creatinine [Mass/Vol] 1.40 mg/dL High 0.70-1.20 [facility] Comment on above: Performed By: #### L 100.0100, L501.9520, L500.2500, L503.7505 ####[facility] [address] [place], [address] GAP 14 Normal 5-15 [facility] Comment on above: Performed By: #### L 100.0100, L501.9520, L500.2500, L503.7505 ####[facility] [address] [place], [address] GFR/1.73 sq M.predicted among non-blacks MDRD (S/P/Bld) [Vol rate/Area] 37 mL/min/{1.73_m2} Low >60 [facility] Comment on above: Result Comment: mL/m in/1.73m2 CKD-EPI Creatinine Equation (2020) Performed By: #### L 100.0100, L501.9520, L500.2500, L503.7505 ####[facility] [address] [place], [address] Glucose [Mass/Vol] 94 mg/dL Normal 70-99 [facility] Comment on above: Performed By: #### L 100.0100, L501.9520, L500.2500, L503.7505 ####[facility] [address] [place], [address] Potassium [Moles/Vol] 5.0 mmol/L Normal 3.3-5.1 [facility] Comment on above: Result Comment: Hemo lysis present, Results??could be affected.?? Performed By: #### L 100.0100, L501.9520, L500.2500, L503.7505 ####[facility] [address] [place], [address] Sodium [Moles/Vol] 133 mmol/L Normal 133-145 [facility] Comment on above: Performed By: #### L 100.0100, L501.9520, L500.2500, L503.7505 ####[facility] [address] [place], [address] Urea nitrogen [Mass/Vol] 37 mg/dL High 4-19 [facility] Comment on above: Performed By: #### L 100.0100, L501.9520, L500.2500, L503.7505 ####[facility] [address] [place], [address] Basophil percentageOrdered B y: Anabel Horne on 10-31-2024 Basophils/100 WBC (Bld) 0.6 % 0-1 [facility] CBC W/Diff, Automatedon 07-0 Absolute Lymph 1.16 X10 3/uL Normal 0.83-4.51 [facility] Comment on above: Performed By: #### L 100.0100, L501.9520, L500.2500, L503.7505 ####[facility] [address] [place], [address] Absolute Neut 10.5 X10 3/uL High 2.0-7.7 [facility] Comment on above: Performed By: #### L 100.0100, L501.9520, L500.2500, L503.7505 ####[facility] [address] [place], [address] Basophils/100 WBC (Bld) 0.6 % Normal 0-1 [facility] Comment on above: Performed By: #### L 100.0100, L501.9520, L500.2500, L503.7505 ####[facility] [address] [place], [address] Eosinophils/100 WBC (Bld) 0.7 % Normal 0-5 [facility] Comment on above: Performed By: #### L 100.0100, L501.9520, L500.2500, L503.7505 ####[facility] [address] [place], [address] Erythrocyte distribution width (RBC) [Ratio] 14.4 % Normal 11.6-14.6 [facility] Comment on above: Performed By: #### L 100.0100, L501.9520, L500.2500, L503.7505 ####[facility] [address] [place], [address] Hematocrit (Bld) [Volume fraction] 37.0 % Normal 37-47 [facility] Comment on above: Performed By: #### L 100.0100, L501.9520, L500.2500, L503.7505 ####[facility] [address] [place], [address] Hemoglobin (Bld) [Mass/Vol] 12.4 g/dL Normal 12.0-15.0 [facility] Comment on above: Performed By: #### L 100.0100, L501.9520, L500.2500, L503.7505 ####[facility] [address] [place], [address] IG% 0.500 Normal 0.0-0.9 [facility] Comment on above: Result Comment: IG% - Immature Granulocytes (promyelocytes, myelocytes andmetamyelocytes) > 1% indicates that a LEFT SHIFT is Present. Performed By: #### L 100.0100, L501.9520, L500.2500, L503.7505 ####[facility] [address] [place], [address] Lymphocytes/100 WBC (Bld) 8.7 % Low 19-41 [facility] Comment on above: Performed By: #### L 100.0100, L501.9520, L500.2500, L503.7505 ####[facility] [address] [place], [address] MCH (RBC) [Entitic mass] 30.3 pg Normal 27.0-32.0 [facility] Comment on above: Performed By: #### L 100.0100, L501.9520, L500.2500, L503.7505 ####[facility] [address] [place], [address] MCHC (RBC) [Mass/Vol] 33.5 g/dL Normal 32-36 [facility] Comment on above: Performed By: #### L 100.0100, L501.9520, L500.2500, L503.7505 ####[facility] [address] [place], [address] MCV (RBC) [Entitic vol] 90.5 fL Normal 81-99 [facility] Comment on above: Performed By: #### L 100.0100, L501.9520, L500.2500, L503.7505 ####[facility] [address] [place], [address] Monocytes/100 WBC (Bld) 10.6 % High 0-10 [facility] Comment on above: Performed By: #### L 100.0100, L501.9520, L500.2500, L503.7505 ####[facility] [address] [place], [address] Neutrophils/100 WBC (Bld) 78.9 % High 47-70 [facility] Comment on above: Performed By: #### L 100.0100, L501.9520, L500.2500, L503.7505 ####[facility] [address] [place], [address] Nucleated RBC (Bld) [#/Vol] 0 10*3/uL Normal 0-5 [facility] Comment on above: Performed By: #### L 100.0100, L501.9520, L500.2500, L503.7505 ####[facility] [address] [place], [address] Platelet mean volume (Bld) [Entitic vol] 10.1 fL Normal 6.2-12.0 [facility] Comment on above: Performed By: #### L 100.0100, L501.9520, L500.2500, L503.7505 ####[facility] [address] [place], [address] Platelets (Bld) [#/Vol] 292 10*3/uL Normal 150-450 [facility] Comment on above: Performed By: #### L 100.0100, L501.9520, L500.2500, L503.7505 ####[facility] [address] [place], [address] RBC (Bld) [#/Vol] 4.09 10*6/uL Low 4.2-5.4 [facility] Comment on above: Performed By: #### L 100.0100, L501.9520, L500.2500, L503.7505 ####[facility] [address] [place], [address] RDW SD 47.9 fl High 35.1-43.9 [facility] Comment on above: Performed By: #### L 100.0100, L501.9520, L500.2500, L503.7505 ####[facility] [address] [place], [address] WBC (Bld) [#/Vol] 13.3 10*3/uL High 4.4-11.0 [facility] Comment on above: Performed By: #### L 100.0100, L501.9520, L500.2500, L503.7505 ####[facility] [address] [place], [address] Carbon dioxide, total [Moles /volume] in Central venous bloodOrdered By: Anabel oHrne on 10-31-2024 CO2 [Moles/Vol] 23.0 mmol/L 21.0-32.0 [facility] Chest PA and Lateralon 10-31 Chest PA and Lateral Normal [facility] Chloride assayOrdered By: Sugey Horne on 10-31-2024 Chloride [Moles/Vol] 96 mmol/L Low 98-108 [facility] Eosinophil percentageOrdered By: Anabel Horne on 10-31-2024 Eosinophils/100 WBC (Bld) 0.7 % 0-5 [facility] Erythrocyte distribution wid th ratioOrdered By: Anabel Horne on 10-31-2024 Erythrocyte distribution width (RBC) [Ratio] 14.4 % 11.6-14.6 [facility] Erythrocyte distribution wid th standard deviationOrdered By: Anabel Horne on 10-31-2024 Erythrocyte distribution width (RBC) [Ratio] 47.9 fl High 35.1-43.9 [facility] Glomerular filtration rate ( GFR) estimation/1.73 sq m using serum, plasma, or whole bOrdered By: Anabel Horne on 10-31-2024 GFR/1.73 sq M.predicted among non-blacks MDRD (S/P/Bld) [Vol rate/Area] 37 mL/min/{1.73_m2} Low >60 [facility] Comment on above: mL/min/1.73m2 CKD-EP I Creatinine Equation (2020) Hematocrit Auto (Bld) [Volum e fraction]Ordered By: Anabel Horne on 10-31-2024 Hematocrit (Bld) [Volume fraction] 37.0 % 37-47 [facility] Hemoglobin measurementOrdere d By: Anabel Horne on 10-31-2024 Hemoglobin (Bld) [Mass/Vol] 12.4 g/dL 12.0-15.0 [facility] Immature granulocytes/100 WB C Auto (Bld)Ordered By: Anabel Horne on 10-31-2024 Immature granulocytes/100 WBC (Bld) 0.500 % 0.0-0.9 [facility] Comment on above: IG% - Immature Granu locytes (promyelocytes, myelocytes and metamyelocytes) > 1% indicates that a LEFT SHIFT is Present. L503.7505on 10-31-2024 Natriuretic peptide B (Bld) [Mass/Vol] 216 pg/mL Normal <=1800 [facility] Comment on above: Result Comment: Hear t Failure Unlikely: < 300 pg/mLHeart Failure Likely< 50 Years: > 450 pg/mL50-75 Years: > 900 pg/mL>75 Years: > 1800 pg/mL Performed By: #### L 100.0100, L501.9520, L500.2500, L503.7505 ####[facility] [address] [place], [address] MCV (mean corpuscular volume ) determinationOrdered By: Anabel Horne on 10-31-2024 MCV (RBC) [Entitic vol] 90.5 fL 81-99 [facility] Mean corpuscular hemoglobin (MCH) determinationOrdered By: Anabel Horne on 10-31-2024 MCH (RBC) [Entitic mass] 30.3 pg 27.0-32.0 [facility] Mean corpuscular hemoglobin concentration (MCHC) determinationOrdered By: Anabel Horne on 10-31-2024 MCHC (RBC) [Mass/Vol] 33.5 g/dL 32-36 [facility] Mean platelet volume determi nationOrdered By: Anabel Horne on 10-31-2024 Platelet mean volume (Bld) [Entitic vol] 10.1 fL 6.2-12.0 [facility] Monocyte percentageOrdered B y: Anabel Horne on 10-31-2024 Monocytes/100 WBC (Bld) 10.6 % High 0-10 [facility] Natriuretic peptide.B prohor carmelita N-Terminal [Mass/volume] in Serum or PlasmaOrdered By: Anabel Horne on 10-31-2024 Natriuretic peptide.B prohormone N-Terminal [Mass/Vol] 216 pg/mL <1800 [facility] Comment on above: Heart Failure Unlike ly: < 300 pg/mLHeart Failure Likely< 50 Years: > 450 pg/mL50-75 Years: > 900 pg/mL>75 Years: > 1800 pg/mL Neutrophil percentageOrdered By: Anabel Horne on 10-31-2024 Neutrophils/100 WBC (Bld) 78.9 % High 47-70 [facility] Nucleated red blood cell per centageOrdered By: Anabel Horne on 10-31-2024 Nucleated RBC/100 WBC (Bld) [Ratio] 0 % 0-5 [facility] Platelet countOrdered By: Sugey Horne on 10-31-2024 Platelets (Bld) [#/Vol] 292 10*3/uL 150-450 [facility] Potassium measurement (mass/ volume)Ordered By: Anabel Horne on 10-31-2024 Potassium (Unsp spec) [Mass/Vol] 5.0 mmol/L 3.3-5.1 [facility] Comment on above: Hemolysis present, R esults could be affected. RBC Auto (Bld) [#/Vol]Ordere d By: Anabel Horne on 10-31-2024 RBC (Bld) [#/Vol] 4.09 10*6/uL Low 4.2-5.4 [facility] Serum creatinine measurement (mass/volume)Ordered By: Anabel Horne on 10-31-2024 Creatinine [Mass/Vol] 1.40 mg/dL High 0.70-1.20 [facility] Serum glucose measurement (m ass/volume)Ordered By: Anabel Horne on 10-31-2024 Glucose [Mass/Vol] 94 mg/dL 70-99 [facility] Serum or plasma calcium julee urement (mass/volume)Ordered By: Anabel Horne on 10-31-2024 Calcium [Mass/Vol] 9.0 mg/dL 7.6-11.0 [facility] Serum or plasma urea nitroge n measurement (mass/volume)Ordered By: Anabel Horne on 10-31-2024 Urea nitrogen [Mass/Vol] 37 mg/dL High 4-19 [facility] Sodium levelOrdered By: Thien Horne on 10-31-2024 Sodium [Moles/Vol] 133 mmol/L 133-145 [facility] TSH DL <= 0.005 mIU/L QnOrde red By: Anabel Horne on 10-31-2024 TSH Qn 3.460 uIU/mL 0.300-4.200 [facility] Thyroid Stim Hormone (TSH)on 10-31-2024 TSH 3.460 uIU/mL Normal 0.300-4.200 [facility] Comment on above: Performed By: #### L 100.0100, L501.9520, L500.2500, L503.7505 ####[facility] [address] [place], [address] White blood cell (WBC) count Ordered By: Anabel Horne on 10-31-2024 WBC (Bld) [#/Vol] 13.3 10*3/uL High 4.4-11.0 [facility] CNTHERAPYon 10-27-2024 CNTHERAPY OT/PT/Speech Visit (LDPT) MICHAEL MEIER ([id number]) 1940 F Date Time Provider Department 10/27/24 12:45 PM SARAH MERCHANT Date Time Provider Department Center 10/27/2024 12:45 PM [id number], SARAH LDPT [facility] Reason for Visit: Physical Therapy [503] Primary Visit Diagnosis:Abnormality of gait [R26.9] Other Visit Diagnoses:Weakness [R53.1] Difficulty walking [R26.2] Imbalance [R26.89] Allergies As of Date: 10/27/2024 Noted Allergy Reaction CIPROFLOXACIN 09/05/2018 2 - Rash DEMEROL (MEPERIDINE (PF)) 02/06/2011 11 - Vomiting OPIOIDS - MORPHINE ANALOGUES 03/17/2001 5 - Intolerance Comments: nausea, dizzy, "sees things" OPIOIDS-MEPERIDINE AND RELATED 02/17/2001 Comments: nausea/vomiting PENICILLIN [...] Take 1 capsule by mouth once daily. [facility] 10-25-2024 [facility]IER ([id number]) 1940 F Date Time Provider Department 10/25/24 MICHAEL PUGA [facility] During your visit today, we recorded the following information about you: Tameka Marin, GLYNN 10/25/2024 1:38 PM Signed Patient calling and [...] 03/17/2001 5 - Intolerance Comments: nausea, dizzy, "sees things" OPIOIDS-MEPERIDINE AND RELATED 02/17/2001 Comments: nausea/vomiting PENICILLIN [...] DYSMETABOLIC SYNDRO (more content not included)... Normal [facility] CNTHERAPYon 10-09-2024 CNTHERAPY OT/PT/Speech Visit (LDPT) MICHAEL MEIER ([id number]) 1940 F Date Time Provider Department 10/09/24 12:45 PM JOY SUN Date Time Provider Department Center 10/09/2024 12:45 PM [id number] SUN [facility] Reason for Visit: Physical Therapy [503] Primary Visit Diagnosis:Abnormality of gait [R26.9] Other Visit Diagnoses:Weakness [R53.1] Difficulty walking [R26.2] Imbalance [R26.89] Allergies As of Date: 10/09/2024 Noted Allergy Reaction CIPROFLOXACIN 09/05/2018 2 - Rash DEMEROL (MEPERIDINE (PF)) 02/06/2011 11 - Vomiting OPIOIDS - MORPHINE ANALOGUES 03/17/2001 5 - Intolerance Comments: nausea, dizzy, "sees things" OPIOIDS-MEPERIDINE AND RELATED 02/17/2001 Comments: nausea/vomiting PENICILLIN [...] by mouth once daily. Normal [facility] CNTHERAPYon 10-02-2024 CNTHERAPY OT/PT/Speech Visit (LDPT) MICHAEL MEIER ([id number]) 1940 F Date Time Provider Department 10/02/24 3:00 PM PJ BLEDSOE LDFRANTZ Date Time Provider Department Center 10/02/2024 3:00 PM [id number], JAY LDPT [facility] Reason for Visit: Physical Therapy [503] Primary Visit Diagnosis:Abnormality of gait [R26.9] Other Visit Diagnoses:Weakness [R53.1] Difficulty walking [R26.2] Imbalance [R26.89] Allergies As of Date: 10/02/2024 Noted Allergy Reaction CIPROFLOXACIN 09/05/2018 2 - Rash DEMEROL (MEPERIDINE (PF)) 02/06/2011 11 - Vomiting OPIOIDS - MORPHINE ANALOGUES 03/17/2001 5 - Intolerance Comments: nausea, dizzy, "sees things" OPIOIDS-MEPERIDINE AND RELATED 02/17/2001 Comments: nausea/vomiting PENICILLIN [...] by mouth once daily. Normal [facility] [id number] 09-28-2024 [id number] O ID: [id number] Author: SARAH MERCHANT PT Service: ? Author Type: Physical Therapist Type: [id number] Filed: 09/28/2024 15:41 Note Text: [facility] Physical Therapy Plan of Care Certification Patient Name: Michael Meier : 1940 [facility] #: [id number] Date: 09/28/2024 To: Arlene Schwarz MD From [...] increase T-score by a minimum 5 points. [place]rill in home exercise program. Patient will demonstrate [...] Planned: 12 Planned Treatment Interventions: Therapeutic exercise (79289), Neuromuscular re-education (32058), Therapeutic activities (52995), Self-residential management (74482), Gait Training (47515), [facility], General Conditioning PLAN FOR NEXT [...] reviewed the treatment plan for Michael Meier, [facility]# [id number] for the period of 09/28/24 -- 12/27/24, established on 09/28/2024. Signature certifies the need for therapy services. Normal [facility] Priscila 09-28-2024 L[facility] Telephone ([facility]) MICHAEL MEIER ([id number]) 1940 F Date Time Provider Department 09/28/24 [facility] During your visit today, we recorded the following information about you: Nadine Colon LPN 09/28/2024 1:48 PM Signed Kell from [facility] calling to report patient tremor is [...] 03/17/2001 5 - Intolerance Comments: nausea, dizzy, "sees things" OPIOIDS-MEPERIDINE AND RELATED 02/17/2001 Comments: nausea/vomiting PENICILLIN [...] [D23.30] 01/21/20 (more content not included)... Normal [facility] CNTHERAPYon 09-28-2024 CNTHERAPY OT/PT/Speech Visit (LDPT) HARDEEPMICHAEL ([id number]) 1940 F Date Time Provider Department 09/28/24 2:15 PM SARAH MERCHANT Date Time Provider Department Center 09/28/2024 2:15 PM [id number] MERCHATN [facility] Reason for Visit: PT Eval [747] Primary Visit Diagnosis:Weakness [R53.1] Other Visit Diagnoses:Difficulty walking [R26.2] Abnormality of gait [R26.9] Imbalance [R26.89] Allergies As of Date: 09/28/2024 Noted Allergy Reaction CIPROFLOXACIN 09/05/2018 2 - Rash DEMEROL (MEPERIDINE (PF)) 02/06/2011 11 - Vomiting OPIOIDS - MORPHINE ANALOGUES 03/17/2001 5 - Intolerance Comments: nausea, dizzy, "sees things" OPIOIDS-MEPERIDINE AND RELATED 02/17/2001 Comments: nausea/vomiting PENICILLIN [...] once daily. Letter Text Normal [facility] Priscila 09-08-2024 [facility] Telephone ([facility]) MICHAEL MEIER ([id number]) 1940 F Date Time Provider Department 09/08/24 MICHAEL PUGA During your visit today, we recorded the following information about you: Loli Adamson, RN 09/08/2024 10:46 AM Signed Jackelin- [employer]- reports since pt has dx JOSE on CPAP, per medicare guidelines, pt would have to have sleep titration study to qualify for oxygen. States pt would not qualify for oxygen- with overnight pulse oximetry test per medicare guidelines. Please phone Jackelin with any questions: [phone] extension [phone] Michael Puga DO 09/08/2024 12:37 PM Signed Noted, is she willing to do this testing? DO Juan Diego Dow M Robin, RN 09/08/2024 1:38 PM Signed Phoned pt and explained what [employer] reported needed to be done per Medicare guidelines for her to qualify for oxygen. Pt reports she was in [facility] about a yr ago with pneumonia, [...] she should do. Please advise pt. Amanda Pratt RN 09/08/2024 1:53 PM Signed Patient calls [...] Jordan L, DO 09/08/2024 5:06 PM Signed DO Juan Diego Charles M Robin RN 09/14/2024 12:36 PM Signed Petra called to see if pcp was going to order the overnight pulse oximetry. Reviewed notes below with Petra with verbalized understanding. Allergies As of Date: 09/08/2024 Noted Allergy Reaction CIPROFLOXACIN 09/05/2018 2 - Rash DEMEROL (MEPERIDINE (PF)) 02/06/2011 11 - Vomiting OPIOIDS - MORPHINE ANALOGUES 03/17/2001 5 - Intolerance Comments: nausea, dizzy, "sees things" OPIOIDS-MEPERIDINE AND RELATED 02/17/2001 Comments: nausea/vomiting PENICILLIN [...] aspirin, e (more content not included)... Normal [facility]IER ([id number]) 1940 F Date Time Provider Department 09/05/24 MICHAEL PUGA [facility] During your visit today, we [...] me to order oxygen by insurance Michael Puga, Julianna Grande LPN 09/06/2024 1:12 PM Signed Pt. informed and would like to get the nighttime Oximetry. Bhavna Arauz RN 09/07/2024 11:18 AM Signed Petra NOLASCO from [facility] calls and is asking status [...] 03/17/2001 5 - Intolerance Comments: nausea, dizzy, "sees things" OPIOIDS-MEPERIDINE AND RELATED 02/17/2001 Comments: nausea/vomiting PENICILLIN G 02/17/2001 Comments: imani PRAVACHOL (PRAVASTATIN SODIUM) 03/09/2016 14 - Other: See Comments Comments: Leg cramps SULFA (SULFONAMIDE ANTIBIOTICS) 03/17/2001 Comments: imani VICODIN (HYDROCODONE-ACETAMINO PHE*01/08/2005 5 - Intolerance Comments: dizzy,nausea,vomiting, headache ZITHROMAX (AZITHROMYCIN) 05/20/2017 5 - Intolerance Date Reviewed: 08/30/2024 Reviewed by: Julianna Cano LPN - Fully Assessed Reason for Visit: Patient Question [8602] Primary Visit Diagnosis:Congestive heart failure, unspecified HF chronicity, unspecified heart failure type (HCC) [I50.9] Other Visit Diagnoses:Obstructive lung disease (HCC) [J44.9] Chronic respiratory failure with hypoxia (HCC) [J96.11] Order(s):NONINVASV OXYGEN SATUR;SINGLE [17194ZMM] Order #: [id number] Prescriptions as of 09/08/2024 - rOPINIRole (REQUIP) [...] Noted Resolv (more content not included)... Normal [facility] CNOVon 08-30-2024 [facility] MICAHEL MEIER ([id number]) 1940 F Date Time Provider Department 08/30/24 3:00 PM [facility] During your visit today, we recorded the following information about you: Temperature Pulse Respiration Blood pressure 97 degrees 64/minute 20/minute 148/64 Weight 104.3 kg Michael Puga DO 08/30/2024 10:10 PM Signed CC: Michael Deras Bibiyuko is a 84 year old female who presents to the office for follow up HPI: Seen in the office 1 week ago on 08/17/24 by Kami Rosales CNP as below Paxil 20mg- tolerating well. Feels very tired, sleepy, "I don't care" type feelings. States her medication does help [...] having some symptoms of feeling LH and "off my normal" as well as occasional blurring of vision [...] MEDIALANDLAT COMPARTMENTS 11/15/2009 Knee replacement, total -Left [facility] ARTHRP KNE CONDYLEANDPLATU MEDIALANDLAT COMPARTMENTS 12/30/2009 Right knee replaced COLONOSCOPY FLX DX W/COLLJ SPEC WHEN PFRMD 06/29/2017 Colonoscopy EGD 10/17/2020 EGD W/O [facility] SPEC VARICIES INJ 01/08/2022 EGD W/O [facility] SPEC VARICIES INJ 03/31/2024 [place] ESOPHAGOGASTRODUODENOS COPY [...] tablet Ta (more content not included)... Normal [facility] HEMOGLOBIN A1C (POC)on 08-30 HbA1c (Bld) [Mass fraction] 5.2 % 4.3 - 5.6 % [facility] Comment on above: Location: [place], [address] [place] [address] Rd, [place], [address] Point of care (POC) Hemoglobin A1c (HGBA1C) [...] specific diabetes management situations: The POC device film or videotape editor provides a normal range of 4.2% to 6.5% for the HGBA1C POC test. However, the [place] [employer] guidelines indicate that patients with [...] anemia) that alter red blood cell lifespan. [facility] MICHAEL MEIER ([id number]) 1940 F Date Time Provider Department 08/25/24 ASIA ROSALES [facility] During your visit today, we recorded the following information about you: Ruba Argueta LPN 08/25/2024 9:35 AM Signed Petra from [facility] calling stating that the referral for Palliative Care be faxed to [facility] at [phone]. Referral and office visit faxed as requested. Allergies As of Date: 08/25/2024 Noted Allergy Reaction CIPROFLOXACIN 09/05/2018 2 - Rash DEMEROL (MEPERIDINE (PF)) 02/06/2011 11 - Vomiting OPIOIDS - MORPHINE ANALOGUES 03/17/2001 5 - Intolerance Comments: nausea, dizzy, "sees things" OPIOIDS-MEPERIDINE AND RELATED 02/17/2001 Comments: nausea/vomiting PENICILLIN [...] and urg (more content not included)... Normal [facility] CNOVon 08-17-2024 CNOV Office Visit ([facility] ) MICHAEL MEIER ([id number]) 1940 F Date Time Provider Department 08/17/24 3:20 PM ASIA ROSALES [facility] During your visit today, we recorded the following information about you: Pulse Blood pressure 61/minute 136/68 Asia Rosales APRN.COUNTER WAITER 08/18/2024 8:27 AM Signed Chief Complaint Patient presents with: Medication Follow-up: Increase paxil HPI Michael Deras Hardeep is a 84 year old female who presents here today for Above Complaints.. Paxil 20mg- tolerating well. Feels very tired, sleepy, "I don't care" type feelings. States her medication does help [...] FEM PROSTC AGRFT/ALGRFT Left 07/2016 ARTHRP [facility] CONDYLEANDPLATU MEDIALANDLAT COMPARTMENTS 11/15/2009 Knee replacement, total [facility] ARTHRP KNE CONDYLEANDPLATU MEDIALANDLAT COMPARTMENTS 12/30/2009 Right knee replaced COLONOSCOPY FLX DX W/COLLJ SPEC WHEN PFRMD 06/29/2017 Colonoscopy EGD 10/17/2020 EGD W/O [facility] SPEC VARICIES INJ 01/08/2022 EGD W/O [facility] SPEC VARICIES INJ 03/31/2024 [place] ESOPHAGOGASTRODUODENOS COPY [...] Opioids - Morphine * Intolerance nausea, dizzy, "sees things" Opioids-Meperidine * nausea/vomiting Penicillin G hives Pravachol [...] not included)... [facility] ([facility] MICHAEL MEIER ([id number]) 1940 F Date Time Provider Department 08/16/24 [facility] During your visit today, we recorded the following information about you: Loli Adamson, RN 08/16/2024 1:46 PM Signed Petra- - [facility]- reports she is seeing patient and [...] nurse phoned patient and scheduled appt with Director Patient Accounting for tomorrow to see if Director Patient Accounting can increase patient's paxil. Asia Rosales APRN.CARMELINA 08/18/2024 2:37 PM Signed I saw her in the office yesterday 08/17 and these concerns were addressed. 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 Normal [facility] Anion gap in Serum or Plasma Ordered By: Anabel Horne on 07-07-2024 Anion gap [Moles/Vol] 20 mmol/L High 5-15 [facility] BUN/creatinine ratioOrdered By: Anabel Horne on 07-07-2024 Urea nitrogen/Creatinine [Mass ratio] 26.5 mg/mg High 10-20 [facility] Basic Metabolic Profile (BMP )on 07-07-2024 BUN/CRE 26.5 RATIO High 10-20 [facility] Comment on above: Performed By: #### L 500.2500 ####[facility] [address] [place], [address] Calcium [Mass/Vol] 9.5 mg/dL Normal 7.6-11.0 [facility] Comment on above: Performed By: #### L 500.2500 ####[facility] [address] [place], [address] Chloride [Moles/Vol] 97 mmol/L Low 98-108 [facility] Comment on above: Performed By: #### L 500.2500 ####[facility] [address] [place], [address] CO2 [Moles/Vol] 19.7 mmol/L Low 21.0-32.0 [facility] Comment on above: Performed By: #### L 500.2500 ####[facility] [address] [place], [address] Creatinine [Mass/Vol] 1.30 mg/dL High 0.70-1.20 [facility] Comment on above: Performed By: #### L 500.2500 ####[facility] [address] [place], [address] GAP 20 High 5-15 [facility] Comment on above: Performed By: #### L 500.2500 ####[facility] [address] [place], [address] GFR/1.73 sq M.predicted among non-blacks MDRD (S/P/Bld) [Vol rate/Area] 41 mL/min/{1.73_m2} Low >60 [facility] Comment on above: Result Comment: mL/m in/1.73m2 CKD-EPI Creatinine Equation (2020) Performed By: #### L 500.2500 ####[facility] [address] [place], [address] Glucose [Mass/Vol] 99 mg/dL Normal 70-99 [facility] Comment on above: Performed By: #### L 500.2500 ####[facility] [address] [place], [address] Potassium [Moles/Vol] 4.3 mmol/L Normal 3.3-5.1 [facility] Comment on above: Performed By: #### L 500.2500 ####[facility] [address] [place], [address] Sodium [Moles/Vol] 137 mmol/L Normal 133-145 [facility] Comment on above: Performed By: #### L 500.2500 ####[facility] [address] [place], [address] Urea nitrogen [Mass/Vol] 35 mg/dL High 4-19 [facility] Comment on above: Performed By: #### L 500.2500 ####[facility] [address] [place], [address] Carbon dioxide, total [Moles /volume] in Central venous bloodOrdered By: Anabel Horne on 07-07-2024 CO2 [Moles/Vol] 19.7 mmol/L Low 21.0-32.0 [facility] Chloride assayOrdered By: Sugey Horne on 07-07-2024 Chloride [Moles/Vol] 97 mmol/L Low 98-108 [facility] GFR/1.73 sq M.predicted herve g non-blacks MDRD (S/P/Bld) [Vol rate/Area]Ordered By: Anabel Horne on 07-07-2024 Estimated GFR (MDRD) Non-Af Amer 41 Low >60 [facility] Comment on above: mL/min/1.73m2 CKD-EP I Creatinine Equation (2020) Glomerular filtration rate ( GFR) estimation/1.73 sq m using serum, plasma, or whole bOrdered By: Anabel Horne on 07-07-2024 GFR/1.73 sq M.predicted among non-blacks MDRD (S/P/Bld) [Vol rate/Area] 41 mL/min/{1.73_m2} Low >60 [facility] Comment on above: mL/min/1.73m2 CKD-EP I Creatinine Equation (2020) Potassium (Unsp spec) [Mass/ Vol]Ordered By: Anabel Horne on 07-07-2024 Potassium [Moles/Vol] 4.3 mmol/L 3.3-5.1 [facility] Potassium measurement (mass/ volume)Ordered By: Anabel Horne on 07-07-2024 Potassium (Unsp spec) [Mass/Vol] 4.3 mmol/L 3.3-5.1 [facility] Serum creatinine measurement (mass/volume)Ordered By: Anabel Horne on 07-07-2024 Creatinine [Mass/Vol] 1.30 mg/dL High 0.70-1.20 [facility] Serum glucose measurement (m ass/volume)Ordered By: Anabel Horne on 07-07-2024 Glucose [Mass/Vol] 99 mg/dL 70-99 [facility] Serum or plasma calcium julee urement (mass/volume)Ordered By: Anabel Horne on 07-07-2024 Calcium [Mass/Vol] 9.5 mg/dL 7.6-11.0 [facility] Serum or plasma urea nitroge n measurement (mass/volume)Ordered By: Anabel Horne on 07-07-2024 Urea nitrogen [Mass/Vol] 35 mg/dL High 4-19 [facility] Sodium levelOrdered By: Thien Horne on 07-07-2024 Sodium [Moles/Vol] 137 mmol/L 133-145 [facility] Carotid Duplex Ultrasoundon 07-03-2024 Carotid Duplex Ultrasound Normal [facility] Duplex ultrasound of carotid artery reportOrdered By: Virgil Her on 07-03-2024 Study report [facility] [address] [place] [address] Carotid Duplex Ultrasound 07/03/24 1246 MR#: [id number] Acct: [id number] Name: MICHAEL MEIER Rep #:[id number] 3 : 1940 84 From: Virgil Souza [...] the left vertebral artery. Procedure Carotid Duplex 31227. This is a Carotid Duplex examination using B-mode, color flow and specral Doppler. Exam performed in department. VL/Carotid Duplex Ultrasound Interpretation Summary Mild (<50%) stenosis right extracranial internal carotid. Mild (<50%) stenosis left extracranial internal carotid. Patent and antegrade vertebrals bilaterally. Ordering Physician: Anabel Horne Referring Physician: Michael Puga Performed By: Ernestine Elliott RDCS, RVT 07/03/241805 Date _ iVrgil Her MD CC: Dr. Michael Puga DO; NIDA Katz ~ Date Dictated: 07/03/24 1246 Date Transcribed: 07/03/241805 Hole Puncher Strap: Signed [facility] Work Phone: [facility] 06-26-2024 [facility] Telephone ([facility]) MICHAEL MEIER ([id number]) 1940 F Date Time Provider Department 06/26/24 [facility] During your visit today, we recorded [...] reports provider was going to check with [facility] about taking it since it can cause SOB. Please review and advise, GLYNN Montiel Jordan L, DO 06/28/2024 10:38 AM Signed Please call her reimbursement representative office at [facility] and see if they are concerned with her shortness of breath and respirator symptoms potentially being secondary to SE from Amiodarone and if any options to change this anti arrhythmic on their end? DO Rodrigo Dow Brittany L, MA 06/28/2024 11:40 AM Signed Printed telephone encounter with cover sheet AND faxed to Dr. Hickey [phone]. Advised on cover sheet to respond with reimbursement representative's recommendations. Will wait for fax back. Renea Wallace MA Allergies As of Date: 06/26/2024 Noted Allergy Reaction CIPROFLOXACIN 09/05/2018 2 - Rash DEMEROL (MEPERIDINE (PF)) 02/06/2011 11 - Vomiting OPIOIDS - MORPHINE ANALOGUES 03/17/2001 5 - Intolerance Comments: nausea, dizzy, "sees things" OPIOIDS-MEPERIDINE AND RELATED 02/17/2001 Comments: nausea/vomiting PENICILLIN [...] NEC [D23 (more content not included)... Normal [facility] CNOVon 06-21-2024 CNOV Office Visit ([facility] ) ALEXANDRUMICHAEL HOWARD ([id number]) 1940 F Date Time Provider Department 06/21/24 5:20 PM [facility] During your visit today, we recorded [...] and albuterol. She has been seen by Network Security Officer as well as Dr. Hickey/Multimedia Authoring Specialist at [facility] for follow up after discharge home. [...] FEM PROSTC AGRFT/ALGRFT Left 07/2016 ARTHRP [facility] CONDYLEANDPLATU MEDIALANDLAT COMPARTMENTS 11/15/2009 Knee replacement, total -[facility] ARTHRP E CONDYLEANDPLATU MEDIALANDLAT COMPARTMENTS 12/30/2009 Right knee replaced COLONOSCOPY FLX DX W/COLLJ SPEC WHEN PFRMD 06/29/2017 Colonoscopy EGD 10/17/2020 EGD W/O [facility] SPEC VARICIES INJ 01/08/2022 EGD W/O [facility] SPEC VARICIES INJ 03/31/2024 [place] ESOPHAGOGASTRODUODENOS COPY TRANSORAL DIAGNOSTIC 11/29/2000 EGD ESOPHAGOGASTRODUODENOS [...] - Mo (more content not included)... [facility] Telephone ([facility]) MICHAEL MEIER ([id number]) 1940 F Date Time Provider Department 06/06/24 MICHAEL PUGA During your visit today, we recorded the following information about you: Constance Ervin LPN 06/06/2024 11:54 AM Signed Pt calls for lab results done at [facility] on 06/02/24. Results are scanned in [...] 03/17/2001 5 - Intolerance Comments: nausea, dizzy, "sees things" OPIOIDS-MEPERIDINE AND RELATED 02/17/2001 Comments: nausea/vomiting PENICILLIN [...] [L85.3] 12/01/2013 (more content not included)... Normal [facility] Albumin to globulin ratioOrd ered By: Michael Puga on 06-02-2024 Albumin/Globulin [Mass ratio] 1.0 {ratio} 0.9-2.4 [facility] Bilirubin, totalOrdered By: Michael Puga on 06-02-2024 Bilirubin [Mass/Vol] 0.60 mg/dL 0.20-1.00 [facility] Comment on above: For patients on eltr ombopag therapy, use of Dimension [place] TBIL is not recommended. Blood urea nitrogen (BUN)/cr eatinine ratioOrdered By: Michael Puga on 06-02-2024 Urea nitrogen/Creatinine [Mass ratio] 33.2 mg/mg High 10-20 [facility] Carbon dioxide measurementOr dered By: Michael Puga on 06-02-2024 CO2 [Moles/Vol] 29.0 mmol/L 21.0-32.0 [facility] Chloride measurementOrdered By: Michael Puga on 06-02-2024 Chloride [Moles/Vol] 99 mmol/L 98-107 [facility] Comprehensive Metabolic Prof ilon 06-02-2024 Albumin [Mass/Vol] 3.3 g/dL Normal 3.2-5.0 [facility] Comment on above: Performed By: #### L 500.4050 ####[facility] [address] [place], [address] Albumin/Globulin [Mass ratio] 1.0 {ratio} Normal 0.9-2.4 [facility] Comment on above: Performed By: #### L 500.4050 ####[facility] [address] [place], [address] ALK P 85 U/L Normal 45-117 [facility] Comment on above: Performed By: #### L 500.4050 ####[facility] [address] [place], [address] ALT [Catalytic activity/Vol] 84 U/L High 13-56 [facility] Comment on above: Performed By: #### L 500.4050 ####[facility] [address] [place], [address] AST [Catalytic activity/Vol] 51 U/L High 15-37 [facility] Comment on above: Performed By: #### L 500.4050 ####[facility] [address] [place], [address] Bilirubin [Mass/Vol] 0.60 mg/dL Normal 0.20-1.00 [facility] Comment on above: Result Comment: For patients on eltrombopag therapy, use of Dimension C[place] TBIL is not recommended. Performed By: #### L 500.4050 ####[facility] [address] [place], [address] BUN/CRE 33.2 RATIO High 10-20 [facility] Comment on above: Performed By: #### L 500.4050 ####[facility] [address] [place], [address] CA,Total 9.1 mg/dL Normal 8.5-10.1 [facility] Comment on above: Performed By: #### L 500.4050 ####[facility] [address] [place], [address] Chloride [Moles/Vol] 99 mmol/L Normal 98-107 [facility] Comment on above: Performed By: #### L 500.4050 ####[facility] [address] [place], [address] CO2 [Moles/Vol] 29.0 mmol/L Normal 21.0-32.0 [facility] Comment on above: Performed By: #### L 500.4050 ####[facility] [address] [place], [address] Creatinine [Mass/Vol] 0.87 mg/dL Normal 0.55-1.02 [facility] Comment on above: Result Comment: The validity of the calculated GFR GFRAA in patients over70 years has not been determined. Clinical correlation isessential. Performed By: #### L 500.4050 ####[facility] [address] [place], [address] EST GFR - AA 80 mL/min Normal >60 [facility] Comment on above: Result Comment: Afri can [place] GFR Calc Performed By: #### L 500.4050 ####[facility] [address] [place], [address] GAP 6 Normal 5-15 [facility] Comment on above: Performed By: #### L 500.4050 ####[facility] [address] [place], [address] GFR/1.73 sq M.predicted among non-blacks MDRD (S/P/Bld) [Vol rate/Area] 66 mL/min/{1.73_m2} Normal >60 [facility] Comment on above: Result Comment: Non- GFR Calc Performed By: #### L 500.4050 ####[facility] [address] [place], [address] Globulin (S) [Mass/Vol] 3.4 g/dL Normal 2.2-4.2 [facility] Comment on above: Performed By: #### L 500.4050 ####[facility] [address] [place], [address] Glucose [Mass/Vol] 99 mg/dL Normal 74-106 [facility] Comment on above: Performed By: #### L 500.4050 ####[facility] [address] [place], [address] Potassium [Moles/Vol] 5.1 mmol/L Normal 3.5-5.1 [facility] Comment on above: Performed By: #### L 500.4050 ####[facility] [address] [place], [address] Sodium [Moles/Vol] 133 mmol/L Low 136-145 [facility] Comment on above: Performed By: #### L 500.4050 ####[facility] [address] [place], [place], [address] T PROT 6.7 g/dL Normal 6.4-8.2 [facility] Comment on above: Performed By: #### L 500.4050 ####[facility] [address] [place], [place], [address] Urea nitrogen [Mass/Vol] 29 mg/dL High 7-18 [facility] Comment on above: Performed By: #### L 500.4050 ####[facility] [address] [place], [place], [address] Estimated glomerular filtrat ion rate (GFR) AmericanOrdered By: Michael Puga on 06-02-2024 Estimated GFR (MDRD) Amer 80 mL/min >60 [facility] Comment on above: GFR Calc Glomerular filtration rate ( GFR) estimationOrdered By: Michael Puga on 06-02-2024 Estimated GFR (MDRD) Non-Af Amer 66 mL/min >60 [facility] Comment on above: Non- GFR Calc Glucose measurementOrdered B y: Michael Puga on 06-02-2024 Glucose [Mass/Vol] 99 mg/dL 74-106 [facility] Laboratory - Chemistry and C hemistry - challengeOrdered By: Michael Puga on 06-02-2024 AST [Catalytic activity/Vol] 51 U/L High 15-37 [facility] Potassium measurementOrdered By: Michael Puga on 06-02-2024 Potassium [Moles/Vol] 5.1 mmol/L 3.5-5.1 [facility] Serum anion gap measurementO rdered By: Michael Puga on 06-02-2024 Anion gap [Moles/Vol] 6 mmol/L 5-15 [facility] Serum globulin measurementOr dered By: Michael Puga on 06-02-2024 Globulin (S) [Mass/Vol] 3.4 g/dL 2.2-4.2 [facility] Serum or plasma alanine sprague otransferase (ALT) measurementOrdered By: Michael Puga on 06-02-2024 ALT [Catalytic activity/Vol] 84 U/L High 13-56 [facility] Serum or plasma albumin julee urement (mass/volume)Ordered By: Michael Puga on 06-02-2024 Albumin [Mass/Vol] 3.3 g/dL 3.2-5.0 [facility] Serum or plasma alkaline rachel sphatase measurementOrdered By: Michael Puga on 06-02-2024 ALP [Catalytic activity/Vol] 85 U/L 45-117 [facility] Serum or plasma calcium julee urement (mass/volume)Ordered By: Michael Puga on 06-02-2024 Calcium [Mass/Vol] 9.1 mg/dL 8.5-10.1 [facility] Serum or plasma creatinine m easurement (mass/volume)Ordered By: Michael Puga on 06-02-2024 Creatinine [Mass/Vol] 0.87 mg/dL 0.55-1.02 [facility] Comment on above: The validity of the calculated GFR & GFRAA in patients over 70 years has not been determined. Clinical correlation is essential. Serum or plasma urea nitroge n measurement (mass/volume)Ordered By: Michael Puga on 06-02-2024 Urea nitrogen [Mass/Vol] 29 mg/dL High 7-18 [facility] Sodium levelOrdered By: Susanna Puga on 06-02-2024 Sodium [Moles/Vol] 133 mmol/L Low 136-145 [facility] Total proteinOrdered By: Vance Puga on 06-02-2024 Protein [Mass/Vol] 6.7 g/dL 6.4-8.2 [facility] Cardiology Visit Reporton Cardiology Visit Report Normal [facility] Pacemaker Checkon 06-01-2024 Pacemaker Check Normal [facility] CNPNon 05-30-2024 [facility] MICHAEL MEIER ([id number]) 1940 F Date Time Provider Department 05/30/24 MICHAEL PUGA During your visit today, we recorded the following information about you: Loli Adamson, GLYNN 05/30/2024 8:31 AM Signed Pt reports she had a CMP done at [facility] on 05/25/24 to check her kidneys and glucose. We received a BNP and CBC from [facility] under labs. Do not see a CMP. Patient asking Key to review and advise. Key Portillo APRN.COUNTER WAITER 05/31/2024 7:36 AM Signed I don't see CMP results either. Can we call [facility] and confirm this was drawn. If not, have her get it done. Thank you, Key Portillo APRN.Amanda Heath, GLYNN 05/31/2024 10:09 AM Signed Qing with [facility] HH calls in regards to below. CMP was not completed. Re-faxed ordered to [facility] lab and Qing will add a nurse visit for this week to collect specimen as soon as possible. GLYNN Montiel Alyson Taylor, APRN.COUNTER WAITER 05/31/2024 10:45 AM Signed Noted. Thank you, Key Portillo APRN.COUNTER WAITER Allergies As of Date: 05/30/2024 Noted Allergy Reaction CIPROFLOXACIN 09/05/2018 2 - Rash DEMEROL (MEPERIDINE (PF)) 02/06/2011 11 - Vomiting OPIOIDS - MORPHINE ANALOGUES 03/17/2001 5 - Intolerance Comments: nausea, dizzy, "sees things" OPIOIDS-MEPERIDINE AND RELATED 02/17/2001 Comments: nausea/vomiting PENICILLIN [...] Solar Lentig (more content not included)... Normal [facility] BNP (brain natriuretic pepti de measurement)Ordered By: Michael Puga on 05-25-2024 Natriuretic peptide B (Bld) [Mass/Vol] 33.8 pg/mL 0-100 [facility] BNP,B-Type NATRIURETIC PEPTI Kenyatta 05-25-2024 Natriuretic peptide B (Bld) [Mass/Vol] 33.8 pg/mL Normal 0-100 [facility] Comment on above: Performed By: #### L 100.0500, L503.6620 ####[facility] [address] [place], [address] CBC-Complete Blood Cnt No Di ffon 05-25-2024 Erythrocyte distribution width (RBC) [Ratio] 15.5 % High 11.6-14.6 [facility] Comment on above: Performed By: #### L 100.0500, L503.6620 ####[facility] [address] [place], [address] Hematocrit (Bld) [Volume fraction] 37.3 % Normal 37-47 [facility] Comment on above: Performed By: #### L 100.0500, L503.6620 ####[facility] [address] [place], [address] Hemoglobin (Bld) [Mass/Vol] 12.6 g/dL Normal 12.0-15.0 [facility] Comment on above: Performed By: #### L 100.0500, L503.6620 ####[facility] [address] [place], [address] MCH (RBC) [Entitic mass] 28.4 pg Normal 27.0-32.0 [facility] Comment on above: Performed By: #### L 100.0500, L503.6620 ####[facility] [address] [place], [address] MCHC (RBC) [Mass/Vol] 33.8 g/dL Normal 32-36 [facility] Comment on above: Performed By: #### L 100.0500, L503.6620 ####[facility] [address] [place], [address] MCV (RBC) [Entitic vol] 84.0 fL Normal 81-99 [facility] Comment on above: Performed By: #### L 100.0500, L503.6620 ####[facility] [address] [place], [address] Platelet mean volume (Bld) [Entitic vol] 11.1 fL Normal 6.2-12.0 [facility] Comment on above: Performed By: #### L 100.0500, L503.6620 ####[facility] [address] [place], [address] Platelets (Bld) [#/Vol] 256 10*3/uL Normal 150-450 [facility] Comment on above: Performed By: #### L 100.0500, L503.6620 ####[facility] [address] [place], [address] RBC (Bld) [#/Vol] 4.44 10*6/uL Normal 4.2-5.4 [facility] Comment on above: Performed By: #### L 100.0500, L503.6620 ####[facility] [address] [place], [address] RDW SD 47.2 fl High 35.1-43.9 [facility] Comment on above: Performed By: #### L 100.0500, L503.6620 ####[facility] [address] [place], [address] WBC (Bld) [#/Vol] 10.3 10*3/uL Normal 4.4-11.0 [facility] Comment on above: Performed By: #### L 100.0500, L503.6620 ####[facility] [address] [place], [address] Priscila 05-25-2024 CARMELINAN Telephone (FAMPWS) MICHAEL MEIER ([id number]) 1940 F Date Time Provider Department 05/25/24 MICHAEL PUGA During your visit today, we recorded the following information about you: July Marcano RN 05/25/2024 9:51 AM Signed Bhavna MAKI CM with [facility] called in and reports Pt had been taken off her Hydrochlorothiazide per Cardiology for a while, but the last time she was in the hospital she was put back on 12.5 mg. She states the Pt is going to need a script called in if she is to be taking them to [facility]. I told her I didn't see the [...] 05/11. I see from discharge instructions from [facility] that she was taking HCTZ at [...] 03/17/2001 5 - Intolerance Comments: nausea, dizzy, "sees things" OPIOIDS-MEPERIDINE AND RELATED 02/17/2001 Comments: nausea/vomiting PENICILLIN G 02/17/2001 Comments: hives PRAVACHOL (PRAVASTATIN SODIUM) 03/09/2016 14 - Other: See Comments Comments: Leg cramps SULFA (SULFONAMIDE ANTIBIOTICS) 03/17/2001 Comments: hives VICODIN (HYDROCODONE-ACETAMINO PHE*01/08/2005 5 - Intolerance Comments: dizzy,nausea,vomiting, headache ZITHROMAX (AZITHROMYCIN) 05/20/2017 5 - Intolerance Date Reviewed: 05/11/2024 Reviewed by: Marisol Cano LPN - Fully Assessed Reason for Visit: Patient Update [1234] Medication Question [3908] Order(s):hydroCHLOROth iazide 12.5 mg capsuleTake 1 capsule [...] 100 m (more content not included)... Normal [facility] Erythrocyte distribution wid th ratioOrdered By: Michael Puga on 05-25-2024 Erythrocyte distribution width (RBC) [Ratio] 15.5 % High 11.6-14.6 [facility] Erythrocyte distribution wid th standard deviationOrdered By: Michael Puga on 05-25-2024 Erythrocyte distribution width (RBC) [Entitic vol] 47.2 fL High 35.1-43.9 [facility] Hematocrit Auto (Bld) [Volum e fraction]Ordered By: Michael Puga on 05-25-2024 Hematocrit (Bld) [Volume fraction] 37.3 % 37-47 [facility] Hemoglobin measurementOrdere d By: Michael Puga on 05-25-2024 Hemoglobin (Bld) [Mass/Vol] 12.6 g/dL 12.0-15.0 [facility] MCV (mean corpuscular volume ) determinationOrdered By: Michael Puga on 05-25-2024 MCV (RBC) [Entitic vol] 84.0 fL 81-99 [facility] Mean corpuscular hemoglobin (MCH) determinationOrdered By: Michael Puga on 05-25-2024 MCH (RBC) [Entitic mass] 28.4 pg 27.0-32.0 [facility] Mean corpuscular hemoglobin concentration (MCHC) determinationOrdered By: Michael Puga on 05-25-2024 MCHC (RBC) [Mass/Vol] 33.8 g/dL 32-36 [facility] Mean platelet volume determi nationOrdered By: Michael Puga on 05-25-2024 Platelet mean volume (Bld) [Entitic vol] 11.1 fL 6.2-12.0 [facility] Platelet countOrdered By: Nellie Puga on 05-25-2024 Platelets (Bld) [#/Vol] 256 10*3/uL 150-450 [facility] RBC Auto (Bld) [#/Vol]Ordere d By: Michael Puga on 05-25-2024 RBC (Bld) [#/Vol] 4.44 10*6/uL 4.2-5.4 [facility] White blood cell (WBC) count Ordered By: Michael Puga on 05-25-2024 WBC (Bld) [#/Vol] 10.3 10*3/uL 4.4-11.0 [facility] Bilirubin, Directon 05-19-19 25 Bilirubin.direct [Mass/Vol] 0.28 mg/dL Normal 0.00-0.30 [facility] Comment on above: Performed By: #### L 501.4700, L503.6620, L500.4050, L100.0500 ####[facility] [address] [place], [address] Priscila 05-19-2024 LORRI Telephone ([facility]) MICHAEL MEIER ([id number]) 1940 F Date Time Provider Department 05/19/24 MICHAEL PUGA During your visit today, we recorded the following information about you: Chloe Castro LPN 05/19/2024 12:22 PM Signed Pt calling for results of lab work she had done in her home yesterday, Results are I Epic. Please advise pt. CAROLINE Ramirez, Key Davidson APRN.COUNTER WAITER 05/19/2024 2:40 PM Signed Please let patient know that lab work results look much much better! Kidney function is improving drastically. I want her to continue to stay off of the lasix and repeat labs 1 more time in 1 week. Without the lasix her BNP remains stable which is also a good sign. Thank you, Key Portillo, MIRIAN.Julianna Cabrera LPN 05/19/2024 2:43 PM Signed Pt. sandy. Tameka Marin RN 05/22/2024 12:31 PM Signed Marifer nurse with [facility] calling regarding recently ordered lab orders. Information provided and lab orders faxed to [facility]. Tameka Marin RN Allergies As of Date: 05/19/2024 Noted Allergy Reaction CIPROFLOXACIN 09/05/2018 2 - Rash DEMEROL (MEPERIDINE (PF)) 02/06/2011 11 - Vomiting OPIOIDS - MORPHINE ANALOGUES 03/17/2001 5 - Intolerance Comments: nausea, dizzy, "sees things" OPIOIDS-MEPERIDINE AND RELATED 02/17/2001 Comments: nausea/vomiting PENICILLIN [...] [I50.9] Order(s):NT PRO BNP [SQNTBNP] Order #: [id number] FUTURE COMPREHENSIVE METABOLIC PANEL [SQCMP] Order #: [id number] FUTURE Prescriptions as of 05/22/2024 - furosemide [...] 01/20/2007 09 (more content not included)... Normal [facility] BNP (brain natriuretic pepti de measurement)Ordered By: Michael Puga on 05-18-2024 Natriuretic peptide B (Bld) [Mass/Vol] 38.6 pg/mL 0-100 [facility] BNP,B-Type NATRIURETIC PEPTI Kenyatta 05-18-2024 Natriuretic peptide B (Bld) [Mass/Vol] 38.6 pg/mL Normal 0-100 [facility] Comment on above: Performed By: #### L 501.4700, L503.6620, L500.4050, L100.0500 ####[facility] [address] [place], [address] Bilirubin directOrdered By: Michael Puga on 05-18-2024 Bilirubin.direct [Mass/Vol] 0.28 mg/dL 0.00-0.30 [facility] CBC-Complete Blood Cnt No Di ffon 05-18-2024 Erythrocyte distribution width (RBC) [Ratio] 15.9 % High 11.6-14.6 [facility] Comment on above: Performed By: #### L 501.4700, L503.6620, L500.4050, L100.0500 ####[facility] [address] [place], [address] Hematocrit (Bld) [Volume fraction] 35.5 % Low 37-47 [facility] Comment on above: Performed By: #### L 501.4700, L503.6620, L500.4050, L100.0500 ####[facility] [address] [place], [address] Hemoglobin (Bld) [Mass/Vol] 11.6 g/dL Low 12.0-15.0 [facility] Comment on above: Performed By: #### L 501.4700, L503.6620, L500.4050, L100.0500 ####[facility] [address] [place], [address] MCH (RBC) [Entitic mass] 27.8 pg Normal 27.0-32.0 [facility] Comment on above: Performed By: #### L 501.4700, L503.6620, L500.4050, L100.0500 ####[facility] [address] [place], [address] MCHC (RBC) [Mass/Vol] 32.7 g/dL Normal 32-36 [facility] Comment on above: Performed By: #### L 501.4700, L503.6620, L500.4050, L100.0500 ####[facility] [address] [place], [address] MCV (RBC) [Entitic vol] 84.9 fL Normal 81-99 [facility] Comment on above: Performed By: #### L 501.4700, L503.6620, L500.4050, L100.0500 ####[facility] [address] [place], [address] Platelet mean volume (Bld) [Entitic vol] 11.0 fL Normal 6.2-12.0 [facility] Comment on above: Performed By: #### L 501.4700, L503.6620, L500.4050, L100.0500 ####[facility] [address] [place], [address] Platelets (Bld) [#/Vol] 263 10*3/uL Normal 150-450 [facility] Comment on above: Performed By: #### L 501.4700, L503.6620, L500.4050, L100.0500 ####[facility] [address] [place], [address] RBC (Bld) [#/Vol] 4.18 10*6/uL Low 4.2-5.4 [facility] Comment on above: Performed By: #### L 501.4700, L503.6620, L500.4050, L100.0500 ####[facility] [address] [place], [address] RDW SD 48.9 fl High 35.1-43.9 [facility] Comment on above: Performed By: #### L 501.4700, L503.6620, L500.4050, L100.0500 ####[facility] [address] [place], [address] WBC (Bld) [#/Vol] 9.2 10*3/uL Normal 4.4-11.0 [facility] Comment on above: Performed By: #### L 501.4700, L503.6620, L500.4050, L100.0500 ####[facility] [address] [place], [address] Comprehensive Metabolic Prof ilon 05-18-2024 Albumin [Mass/Vol] 3.4 g/dL Normal 3.2-5.0 [facility] Comment on above: Performed By: #### L 501.4700, L503.6620, L500.4050, L100.0500 ####[facility] [address] [place], [address] Albumin/Globulin [Mass ratio] 1.1 {ratio} Normal 0.9-2.4 [facility] Comment on above: Performed By: #### L 501.4700, L503.6620, L500.4050, L100.0500 ####[facility] [address] [place], [address] ALK P 77 U/L Normal 45-117 [facility] Comment on above: Performed By: #### L 501.4700, L503.6620, L500.4050, L100.0500 ####[facility] [address] [place], [address] ALT [Catalytic activity/Vol] 30 U/L Normal 13-56 [facility] Comment on above: Performed By: #### L 501.4700, L503.6620, L500.4050, L100.0500 ####[facility] [address] [place], [address] AST [Catalytic activity/Vol] 25 U/L Normal 15-37 [facility] Comment on above: Performed By: #### L 501.4700, L503.6620, L500.4050, L100.0500 ####[facility] [address] [place], [address] Bilirubin [Mass/Vol] 1.00 mg/dL Normal 0.20-1.00 [facility] Comment on above: Result Comment: For patients on eltrombopag therapy, use of Dimension [place] TBIL is not recommended. Performed By: #### L 501.4700, L503.6620, L500.4050, L100.0500 ####[facility] [address] [place], [address] BUN/CRE 26.7 RATIO High 10-20 [facility] Comment on above: Performed By: #### L 501.4700, L503.6620, L500.4050, L100.0500 ####[facility] [address] [place], [address] CA,Total 9.0 mg/dL Normal 8.5-10.1 [facility] Comment on above: Performed By: #### L 501.4700, L503.6620, L500.4050, L100.0500 ####[facility] [address] [place], [address] Chloride [Moles/Vol] 90 mmol/L Low 98-107 [facility] Comment on above: Performed By: #### L 501.4700, L503.6620, L500.4050, L100.0500 ####[facility] [address] [place], [address] CO2 [Moles/Vol] 29.0 mmol/L Normal 21.0-32.0 [facility] Comment on above: Performed By: #### L 501.4700, L503.6620, L500.4050, L100.0500 ####[facility] [address] [place], [address] Creatinine [Mass/Vol] 1.05 mg/dL High 0.55-1.02 [facility] Comment on above: Result Comment: The validity of the calculated GFR GFRAA in patients over70 years has not been determined. Clinical correlation isessential. Performed By: #### L 501.4700, L503.6620, L500.4050, L100.0500 ####[facility] [address] [place], [address] EST GFR - AA 64 mL/min Normal >60 [facility] Comment on above: Result Comment: Afri can Australian GFR Calc Performed By: #### L 501.4700, L503.6620, L500.4050, L100.0500 ####[facility] [address] [place], [address] GAP 9 Normal 5-15 [facility] Comment on above: Performed By: #### L 501.4700, L503.6620, L500.4050, L100.0500 ####[facility] [address] [place], [address] GFR/1.73 sq M.predicted among non-blacks MDRD (S/P/Bld) [Vol rate/Area] 53 mL/min/{1.73_m2} Low >60 [facility] Comment on above: Result Comment: Non- GFR Calc Performed By: #### L 501.4700, L503.6620, L500.4050, L100.0500 ####[facility] [address] [place], [address] Globulin (S) [Mass/Vol] 3.1 g/dL Normal 2.2-4.2 [facility] Comment on above: Performed By: #### L 501.4700, L503.6620, L500.4050, L100.0500 ####[facility] [address] [place], [address] Glucose [Mass/Vol] 99 mg/dL Normal 74-106 [facility] Comment on above: Performed By: #### L 501.4700, L503.6620, L500.4050, L100.0500 ####[facility] [address] [place], [address] Potassium [Moles/Vol] 4.0 mmol/L Normal 3.5-5.1 [facility] Comment on above: Performed By: #### L 501.4700, L503.6620, L500.4050, L100.0500 ####[facility] [address] [place], [address] Sodium [Moles/Vol] 128 mmol/L Low 136-145 [facility] Comment on above: Performed By: #### L 501.4700, L503.6620, L500.4050, L100.0500 ####[facility] [address] [place], [address] T PROT 6.5 g/dL Normal 6.4-8.2 [facility] Comment on above: Performed By: #### L 501.4700, L503.6620, L500.4050, L100.0500 ####[facility] [address] [place], [address] Urea nitrogen [Mass/Vol] 28 mg/dL High 7-18 [facility] Comment on above: Performed By: #### L 501.4700, L503.6620, L500.4050, L100.0500 ####[facility] [address] [place], [address] Erythrocyte distribution wid th ratioOrdered By: Michael Puga on 05-18-2024 Erythrocyte distribution width (RBC) [Ratio] 15.9 % High 11.6-14.6 [facility] Erythrocyte distribution wid th standard deviationOrdered By: Michael Puga on 05-18-2024 Erythrocyte distribution width (RBC) [Entitic vol] 48.9 fL High 35.1-43.9 [facility] Hematocrit Auto (Bld) [Volum e fraction]Ordered By: Michael Puga on 05-18-2024 Hematocrit (Bld) [Volume fraction] 35.5 % Low 37-47 [facility] Hemoglobin measurementOrdere d By: Michael Puga on 05-18-2024 Hemoglobin (Bld) [Mass/Vol] 11.6 g/dL Low 12.0-15.0 [facility] MCV (mean corpuscular volume ) determinationOrdered By: Michael Puga on 05-18-2024 MCV (RBC) [Entitic vol] 84.9 fL 81-99 [facility] Mean corpuscular hemoglobin (MCH) determinationOrdered By: Michael Puga on 05-18-2024 MCH (RBC) [Entitic mass] 27.8 pg 27.0-32.0 [facility] Mean corpuscular hemoglobin concentration (MCHC) determinationOrdered By: Michael Puga on 05-18-2024 MCHC (RBC) [Mass/Vol] 32.7 g/dL 32-36 [facility] Mean platelet volume determi nationOrdered By: Michael Puga on 05-18-2024 Platelet mean volume (Bld) [Entitic vol] 11.0 fL 6.2-12.0 [facility] Platelet countOrdered By: Nellie Puga on 05-18-2024 Platelets (Bld) [#/Vol] 263 10*3/uL 150-450 [facility] RBC Auto (Bld) [#/Vol]Ordere d By: Michael Puga on 05-18-2024 RBC (Bld) [#/Vol] 4.18 10*6/uL Low 4.2-5.4 [facility] White blood cell (WBC) count Ordered By: Michael Puga on 05-18-2024 WBC (Bld) [#/Vol] 9.2 10*3/uL 4.4-11.0 [facility] CNPNon 05-16-2024 CARMELINAN Telephone ([facility]) MICHAEL MEIER ([id number]) 1940 F Date Time Provider Department 05/16/24 MICHAEL PUGA During your visit today, we recorded the following information about you: Amanda Pratt RN 05/16/2024 10:26 AM Signed Bhavna with [facility] calls to report duplicate therapy between lasix and spironolactone and lasix and hydralazine. Bhavna is asking if provider wants all medications continued. Hydralazine and Spironolactone are on current medication list but prescription not sent to pharmacy. Please review and advise. Bhavna is requesting a call back at [phone]. GLYNN Montiel Jordan L, DO 05/17/2024 9:02 AM Signed Please clarify with pharmacy and patient her current diuretic/BLOOD PRESSURE medications that she is picking up and taking Marcie Rodriguez LPN 05/17/2024 9:50 AM Signed Phoned [facility] pharmacy with clarification on current meds. Spironolactone 25 mg daily was prescribed by the [facility] also hydralazine 25 mg was prescribed by Kristal Watkins [facility]. Lasix 20 mg was just prescribed by Key Portillo, then Lasix 40 mg was prescribed by [facility] May 02. Left message with Bhavna [facility] about above information. Please review and advise further. CAROLINE Mcmullen Jordan L, DO 05/17/2024 12:32 PM Signed Please clarify what her edema of her legs is looking like? This was assessed by Key and not myself. I Don't want her to be on the spironolactone and the lasix. Recommend stopping the lasix if her edema is improved DO Hossein Dow Barbara, GLYNN 05/17/2024 6:08 PM Signed Pt returned the [...] Verbalizes understanding. Pt is scheduled to see [facility] on 06/01/24. Per Alondra Portillo's [...] if she can. Pt will go to [place] and get it drawn in the morning. [...] get labs drawn in the AM. Sultana Catalan RN 05/17/2024 6:41 PM Signed Pt returned the call and appt made with Dr. Puga for 520 pm on 06/21/24. Pt reminded to stop Lasix and make sure to get labs drawn in AM. Sultana Catalan RN 05/17/2024 6:58 PM Signed Pt's repeat [...] Signed Order placed for CMP DO Hossein Dwo Barbara, RN 05/18/2024 9:50 AM Signed Pt would like a call back as soon as possible after her labs are resulted. July Marcano, RN 05/18/2024 10:04 AM Signed Bhavna MAKI [facility] called in and reports Pt [...] she was able to drawn. Key Portillo, MIRIAN.COUNTER WAITER 05/18/2024 10:50 AM Signed Most important is CMP to have drawn if able. Agree with below. Pt needs to discontinue lasix all together. This was ordered by [facility] after recent admission for new onset CHF exacerbation. Initially ordered for 40 mg daily, I decreased to 20 mg daily after kidney function was so poor and told pt to repeat labs in 5 days with plan to discontinue all together if swelling and weight gain remained stable with decreased. Thank you, Key Bond (more content not included)... Normal [facility] ([id number]) 1940 F Date Time Provider Department 05/12/24 [...] that time. Pt verbalizes understanding. Key Portillo APRN.COUNTER WAITER 05/12/2024 2:23 PM Signed Agree with below. We are repeating BNP lab work in 5-7 days as well to check for this. Thank you, Key Portillo APRN.COUNTER WAITER Allergies As of Date: 05/12/2024 Noted Allergy Reaction CIPROFLOXACIN 09/05/2018 2 - Rash DEMEROL (MEPERIDINE (PF)) 02/06/2011 11 - Vomiting OPIOIDS - MORPHINE ANALOGUES 03/17/2001 5 - Intolerance Comments: nausea, dizzy, "sees things" OPIOIDS-MEPERIDINE AND RELATED 02/17/2001 Comments: nausea/vomiting PENICILLIN [...] [L82.0] 12/01/2013 (more content not included)... [facility] ([id number]) 1940 F Date Time Provider Department 05/12/24 [facility] During your visit today, we recorded the following information about you: Key Portillo APRN.COUNTER WAITER 05/12/2024 12:27 PM Addendum Please call patient [...] lasix. Thank you, Key Portillo APRN.CARMELINA Cano Marisol CAROLINE Ennis 05/12/2024 12:48 PM Signed Spoke with pt gave information provided. Pt voices understanding. She states she spoke with you about some ativan yesterday in appointment but nothing was at [facility] [place] when she went. Key Portillo APRN.CARMELINA 05/12/2024 [...] needed (anxiety attack). Authorizing Provider: KEY PORTILLO APRN.COUNTER WAITER PDMP website checked and validated. All prescriptions have been APPROPRIATELY filled. No suspicious activity was identified. 05/12/2024 by Key Portillo APRN.Jacque Arrieta MA 05/12/2024 1:04 PM Signed Pt informed Jacque Machuca MA Allergies As of Date: 05/12/2024 Noted Allergy Reaction CIPROFLOXACIN 09/05/2018 2 - Rash DEMEROL (MEPERIDINE (PF)) 02/06/2011 11 - Vomiting OPIOIDS - MORPHINE ANALOGUES 03/17/2001 5 - Intolerance Comments: nausea, dizzy, "sees things" OPIOIDS-MEPERIDINE AND RELATED 02/17/2001 Comments: nausea/vomiting PENICILLIN [...] 0 HEPATIC FUNCTION PNL [SQHFP] Order #: [id number] FUTURE COMPLETE BLOOD COUNT AND DIFFERENTIAL [SQCBCDIF] Order #: [id number] FUTURE NT PRO BNP [SQNTBNP] Order #: [id number] FUTURE LORazepam (ATIVAN) 0.5 mgTake 1 tablet [...] HCl (OPT (more content not included)... Normal [facility] CBC W Auto Differential pane l (Bld)on 05-11-2024 Basophils (Bld) [#/Vol] 0.09 10*3/uL [facility] Basophils/100 WBC (Bld) 0.7 % [facility] Differential cell count method Nom (Bld) Auto [facility] Eosinophils (Bld) [#/Vol] 0.21 10*3/uL [facility] Eosinophils/100 WBC (Bld) 1.7 % [facility] Erythrocyte distribution width (RBC) [Ratio] 16.6 % High 11.5 - 15.0 % [facility] Hematocrit (Bld) [Volume fraction] 42.0 % 36.0 - 46.0 % [facility] Hemoglobin (Bld) [Mass/Vol] 13.4 g/dL 11.5 - 15.5 g/dL [facility] Immature granulocytes (Bld) [#/Vol] 0.05 10*3/uL [facility] Immature granulocytes/100 WBC (Bld) 0.4 % [facility] Interpretation and review of laboratory results Abnormal [facility] Lymphocytes (Bld) [#/Vol] 1.48 10*3/uL [facility] Lymphocytes/100 WBC (Bld) 12.3 % [facility] MCH (RBC) [Entitic mass] 27.2 pg 26.0 - 34.0 pg [facility] MCHC (RBC) [Mass/Vol] 31.9 g/dL 30.5 - 36.0 g/dL [facility] MCV (RBC) [Entitic vol] 85.2 fL 80.0 - 100.0 fL [facility] Monocytes (Bld) [#/Vol] 1.05 10*3/uL High [facility] Monocytes/100 WBC (Bld) 8.7 % [facility] Neutrophils (Bld) [#/Vol] 9.14 10*3/uL High [facility] Neutrophils/100 WBC (Bld) 76.2 % [facility] Nucleated RBC (Bld) [#/Vol] NINF [facility] Nucleated RBC/100 WBC (Bld) [Ratio] 0.0 % /100 WBC [facility] Platelet mean volume (Bld) [Entitic vol] 11.3 fL 9.0 - 12.7 fL [facility] Platelets (Bld) [#/Vol] 346 10*3/uL [facility] RBC (Bld) [#/Vol] 4.93 10*6/uL 3.90 - 5.2 0 m/uL [facility] WBC (Bld) [#/Vol] 12.02 10*3/uL High [facility] Basophils (Bld) [#/Vol] 0.09 10*3/uL Normal <0.11 [facility] Comment on above: Order Comment: Speci men Type: BLOOD SPECIMENOrdering Facility: [facility] Address: [address] [place] [address] Performed By: #### 5 7021-8 ####[facility] LABIA [id number] [place] [address] [place] Basophils/100 WBC (Bld) 0.7 % Normal [facility] Comment on above: Order Comment: Speci men Type: BLOOD SPECIMENOrdering Facility: [facility] Address: [address] [place] [address] Performed By: #### 5 7021-8 ####[facility] LABCLIA [id number] [place] [address] [place] Differential cell count method Nom (Bld) Auto Normal [facility] Comment on above: Order Comment: Speci men Type: BLOOD SPECIMENOrdering Facility: [facility] Address: [address] [place] [address] Performed By: #### 5 7021-8 ####[facility] LABCLIA [id number] [place] [address] [place] Eosinophils (Bld) [#/Vol] 0.21 10*3/uL Normal <0.46 [facility] Comment on above: Order Comment: Speci men Type: BLOOD SPECIMENOrdering Facility: [facility] Address: [address] [place] [address] Performed By: #### 5 7021-8 ####[facility] LABCLIA [id number] [place] [address] [place] Eosinophils/100 WBC (Bld) 1.7 % Normal [facility] Comment on above: Order Comment: Speci men Type: BLOOD SPECIMENOrdering Facility: [facility] Address: [address] [place] [address] Performed By: #### 5 7021-8 ####[facility] LABCLIA [id number] [place] [address] [place] Erythrocyte distribution width (RBC) [Ratio] 16.6 % High 11.5-15.0 [facility] Comment on above: Order Comment: Speci men Type: BLOOD SPECIMENOrdering Facility: [facility] Address: [address] [place] [address] Performed By: #### 5 7021-8 ####[facility] LABCLIA [id number] [place] [address] [place] Hematocrit (Bld) [Volume fraction] 42.0 % Normal 36.0-46.0 [facility] Comment on above: Order Comment: Speci men Type: BLOOD SPECIMENOrdering Facility: [facility] Address: [address] [place] [address] Performed By: #### 5 7021-8 ####[facility] LABCLIA [id number] [place] [address] [place] Hemoglobin (Bld) [Mass/Vol] 13.4 g/dL Normal 11.5-15.5 [facility] Comment on above: Order Comment: Speci men Type: BLOOD SPECIMENOrdering Facility: [facility] Address: [address] [place] [address] Performed By: #### 5 7021-8 ####[facility] LABCLIA [id number] [place] [address] [place] Immature granulocytes (Bld) [#/Vol] 0.05 10*3/uL Normal <0.10 [facility] Comment on above: Order Comment: Speci men Type: BLOOD SPECIMENOrdering Facility: [facility] Address: [address] [place] [address] Performed By: #### 5 7021-8 ####[facility] LABCLIA [id number] [place] [address] [place] Immature granulocytes/100 WBC (Bld) 0.4 % Normal [facility] Comment on above: Order Comment: Speci men Type: BLOOD SPECIMENOrdering Facility: [facility] Address: [address] [place] [address] Performed By: #### 5 7021-8 ####[facility] LABCLIA [id number] [place] [address] [place] Lymphocytes (Bld) [#/Vol] 1.48 10*3/uL Normal 1.00-4.00 [facility] Comment on above: Order Comment: Speci men Type: BLOOD SPECIMENOrdering Facility: [facility] Address: [address] [place] [address] Performed By: #### 5 7021-8 ####[facility] LABCLIA [id number] [place] [address] [place] Lymphocytes/100 WBC (Bld) 12.3 % Normal [facility] Comment on above: Order Comment: Speci men Type: BLOOD SPECIMENOrdering Facility: [facility] Address: [address] [place] [address] Performed By: #### 5 7021-8 ####[facility] LABCLIA [id number] [place] [address] [place] MCH (RBC) [Entitic mass] 27.2 pg Normal 26.0-34.0 [facility] Comment on above: Order Comment: Speci men Type: BLOOD SPECIMENOrdering Facility: [facility] Address: [address] [place] [address] Performed By: #### 5 7021-8 ####[facility] LABIA [id number] [place] [address] [place] MCHC (RBC) [Mass/Vol] 31.9 g/dL Normal 30.5-36.0 [facility] Comment on above: Order Comment: Speci men Type: BLOOD SPECIMENOrdering Facility: [facility] Address: [address] [place] [address] Performed By: #### 5 7021-8 ####[facility] [id number] [place] [address] [place] MCV (RBC) [Entitic vol] 85.2 fL Normal 80.0-100.0 [facility] Comment on above: Order Comment: Speci men Type: BLOOD SPECIMENOrdering Facility: [facility] Address: [address] [place] [address] Performed By: #### 5 7021-8 ####[facility] [id number] [place] [address] [place] Monocytes (Bld) [#/Vol] 1.05 10*3/uL High <0.87 [facility] Comment on above: Order Comment: Speci men Type: BLOOD SPECIMENOrdering Facility: [facility] Address: [address] [place] [address] Performed By: #### 5 7021-8 ####[facility] LABIA [id number] [place] [address] [place] Monocytes/100 WBC (Bld) 8.7 % Normal [facility] Comment on above: Order Comment: Speci men Type: BLOOD SPECIMENOrdering Facility: [facility] Address: [address] [place] [address] Performed By: #### 5 7021-8 ####[facility] LABCLIA [id number] [place] [address] [place] Neutrophils (Bld) [#/Vol] 9.14 10*3/uL High 1.45-7.50 [facility] Comment on above: Order Comment: Speci men Type: BLOOD SPECIMENOrdering Facility: [facility] Address: [address] [place] [address] Performed By: #### 5 7021-8 ####[facility] LABCLIA [id number] [place] [address] [place] Neutrophils/100 WBC (Bld) 76.2 % Normal [facility] Comment on above: Order Comment: Speci men Type: BLOOD SPECIMENOrdering Facility: [facility] Address: [address] [place] [address] Performed By: #### 5 7021-8 ####[facility] LABCLIA [id number] [place] [address] [place] Nucleated RBC (Bld) [#/Vol] 10*3/uL Normal <0.01 [facility] Comment on above: Order Comment: Speci men Type: BLOOD SPECIMENOrdering Facility: [facility] Address: [address] [place] [address] Performed By: #### 5 7021-8 ####[facility] LABCLIA [id number] [place] [address] [place] Nucleated RBC/100 WBC (Bld) [Ratio] 0.0 /100 WBC Normal [facility] Comment on above: Order Comment: Speci men Type: BLOOD SPECIMENOrdering Facility: [facility] Address: [address] [place] [address] Performed By: #### 5 7021-8 ####[facility] LABCLIA [id number] [address] [address] [place] Platelet mean volume (Bld) [Entitic vol] 11.3 fL Normal 9.0-12.7 [facility] Comment on above: Order Comment: Speci men Type: BLOOD SPECIMENOrdering Facility: [facility] Address: [address] [place] [address] Performed By: #### 5 7021-8 ####[facility] LABIA [id number] [place] [address] [place] Platelets (Bld) [#/Vol] 346 10*3/uL Normal 150-400 [facility] Comment on above: Order Comment: Speci men Type: BLOOD SPECIMENOrdering Facility: [facility] Address: [address] [place] [address] Performed By: #### 5 7021-8 ####[facility] LABIA [id number] [place] [address] [place] RBC (Bld) [#/Vol] 4.93 10*6/uL Normal 3.90-5.20 [facility] Comment on above: Order Comment: Speci men Type: BLOOD SPECIMENOrdering Facility: [facility] Address: [address] [place] [address] Performed By: #### 5 7021-8 ####[facility] LABIA [id number] [address] [address] [place] WBC (Bld) [#/Vol] 12.02 10*3/uL High 3.70-11.00 [facility] Comment on above: Order Comment: Speci men Type: BLOOD SPECIMENOrdering Facility: [facility] Address: [address] [place] [address] Performed By: #### 5 7021-8 ####[facility] LABIA [id number] [place] [address] [place] CNOVon 05-11-2024 CNOV Office Visit (FAMPWS ) MICHAEL MEIER ([id number]) 1940 F Date Time Provider Department 05/11/24 1:00 PM KEY PORTILLO FAMPWS During your visit today, we recorded the following information about you: Pulse Blood pressure Weight 60/minute 130/58 100.9 kg Key Portillo APRN.COUNTER WAITER 05/11/2024 2:08 PM Signed Chief Complaint Patient presents with: Transition Of Care: Was i wfor chf flae was discharged on 05/02/24 HPI Michael Meier is a 84 year old female who presents here today for Above Complaints. Michael is an established patient of Dr. Edd DO. Concerns today... Hospital discharge -- [facility] hospital admission from 04/30-05/02 d/t hypoxia [...] FEM PROSTC AGRFT/ALGRFT Left 07/2016 [facility] 11/15/2009 Knee replacement, total -[facility] ARTHRP E CONDYLEANDPLATU MEDIALANDLAT COMPARTMENTS 12/30/2009 Right knee replaced COLONOSCOPY FLX DX W/COLLJ SPEC WHEN PFRMD 06/29/2017 Colonoscopy EGD 10/17/2020 EGD W/O [facility] SPEC VARICIES INJ 01/08/2022 EGD W/O [facility] SPEC VARICIES INJ 03/31/2024 Lito ESOPHAGOGASTRODUODENOS COPY TRANSORAL DIAGNOSTIC 11/29/2000 EGD ESOPHAGOGASTRODUODENOS COPY TRANSORAL DIAGNOSTIC 06/29/2017 EGD JOINT REPLACEMENT HX LAPS SURG CHOLECYSTECTOMY W/CHOLANGIOGRAPHY PACEMAKER IMPLANT 01/2011 SKIN BIOPSY HX TONSILLECTOMY HX TOTAL ABDOMINAL HYSTERECT W/WO RMVL TUBE OVARY Hysterectomy, AGL Family History FAMILY HISTORY Problem Relation Age of Onset Coronary Artery Disease Mother other (cardiac arrest) Mother Coronary Artery Disease Father Diabetes Father other (congestive heart failure) Father Patient Allergies ALLERGIES Allergen Reactions Ciprofloxacin Rash Demerol [Meperidine* Vomiting Opioids - Morphine * Intolerance nausea, dizzy, "sees things" Opioids-Meperidine * nausea/vomiting Penicillin G hives Pravachol [...] tablet by (more content not included)... Normal [facility] Comprehensive metabolic 2000 panelon 05-11-2024 Albumin [Mass/Vol] 4.1 g/dL Normal 3.9-4.9 [facility] Comment on above: Order Comment: Speci men Type: BLOOD SPECIMENOrdering Facility: [facility] Address: [address] [place] [address] Performed By: #### 2 4323-8, 71604-0, 3024-7, 3016-3 ####[facility] LABCLIA [id number] [place] [address] [place] ALP [Catalytic activity/Vol] 98 U/L Normal 34-123 [facility] Comment on above: Order Comment: Speci men Type: BLOOD SPECIMENOrdering Facility: [facility] Address: [address] [place] [address] Performed By: #### 2 4323-8, 42939-0, 3024-7, 3016-3 ####[facility] LABCLIA [id number] [place] [address] [place] ALT [Catalytic activity/Vol] 26 U/L Normal 7-38 [facility] Comment on above: Order Comment: Speci men Type: BLOOD SPECIMENOrdering Facility: [facility] Address: [address] [place] [address] [place] [address] Performed By: #### 2 4323-8, 74239-0, 3024-7, 3016-3 ####[facility] LABCLIA [id number] [place] [address] [place] Anion gap [Moles/Vol] 15 mmol/L Normal 8-15 [facility] Comment on above: Order Comment: Speci men Type: BLOOD SPECIMENOrdering Facility: [facility] Address: [address] [place] [address] Performed By: #### 2 4323-8, 31010-3, 3024-7, 3016-3 ####[facility] LABCLIA [id number] [place] [address] [place] AST [Catalytic activity/Vol] 29 U/L Normal 13-35 [facility] Comment on above: Order Comment: Speci men Type: BLOOD SPECIMENOrdering Facility: [facility] Address: [facility] [place] [address] Performed By: #### 2 4323-8, 67059-1, 3024-7, 3016-3 ####[facility] LABCLIA [id number] [place] [address] [place] Bilirubin [Mass/Vol] 0.8 mg/dL Normal 0.2-1.3 [facility] Comment on above: Order Comment: Speci men Type: BLOOD SPECIMENOrdering Facility: [facility] Address: [address] [place] [address] Performed By: #### 2 4323-8, 16954-8, 3024-7, 3016-3 ####[facility] LABCLIA [id number] [place] [address] [place] Calcium [Mass/Vol] 9.4 mg/dL Normal 8.5-10.2 [facility] Comment on above: Order Comment: Speci men Type: BLOOD SPECIMENOrdering Facility: [facility] Address: [facility] [place] [address] Performed By: #### 2 4323-8, 33849-6, 3024-7, 3016-3 ####[facility] LABCLIA [id number] [place] [address] [place] Chloride [Moles/Vol] 95 mmol/L Low 98-107 [facility] Comment on above: Order Comment: Speci men Type: BLOOD SPECIMENOrdering Facility: [facility] Address: [address] [place] [address] Performed By: #### 2 4323-8, 85928-6, 3024-7, 3016-3 ####[facility] LABCLIA [id number] [place] [address] [place] CO2 [Moles/Vol] 25 mmol/L Normal 22-30 [facility] Comment on above: Order Comment: Speci men Type: BLOOD SPECIMENOrdering Facility: [facility] Address: [facility] [place] [address] Performed By: #### 2 4323-8, 91492-1, 3024-7, 3016-3 ####[facility] LABCLIA [id number] [place] [address] [place] Creatinine [Mass/Vol] 1.76 mg/dL High 0.58-0.96 [facility] Comment on above: Order Comment: Speci men Type: BLOOD SPECIMENOrdering Facility: [facility] Address: [address] [place] [address] Performed By: #### 2 4323-8, 44214-7, 3024-7, 3016-3 ####[facility] LABCLIA [id number] [place] [address] [place] Creatinine and Glomerular filtration rate.predicted panel (S/P/Bld) 28 mL/min/1.73m??? Low >=60 [facility] Comment on above: Order Comment: Lori mosqueda Type: BLOOD SPECIMENOrdering Facility: [facility] Address: [address] [place] [address] Result Comment: Bina mated Glomerular Filtration Rate [...] actual GFR. Performed By: #### 2 4323-8, 49109-4, 3024-7, 3016-3 ####[facility] LABCLIA [id number] [place] [address] [place] Glucose [Mass/Vol] 127 mg/dL High 74-99 [facility] Comment on above: Order Comment: Lori mosqueda Type: BLOOD SPECIMENOrdering Facility: [facility] Address: [address] [place] [address] Result Comment: The [place] Diabetes Association (ADA) provides guidance for cutoff [...] Standards of Medical Care in Diabetes 2016, [place] Diabetes Association. Diabetes Care. 2016.39(Suppl 1). Performed By: #### 2 4323-8, 64328-4, 3024-7, 3016-3 ####[facility] LABCLIA [id number] [place] [address] [place] Potassium [Moles/Vol] 4.6 mmol/L Normal 3.7-5.1 [facility] Comment on above: Order Comment: Speci men Type: BLOOD SPECIMENOrdering Facility: [facility] Address: [address] [place] [address] Performed By: #### 2 4323-8, 19755-1, 3024-7, 3016-3 ####[facility] LABCLIA [id number] [place] [address] [place] Protein [Mass/Vol] 7.1 g/dL Normal 6.3-8.0 [facility] Comment on above: Order Comment: Speci men Type: BLOOD SPECIMENOrdering Facility: [facility] Address: [address] [place] [address] Performed By: #### 2 4323-8, 44602-8, 3024-7, 3016-3 ####[facility] LABIA [id number] [place] [address] [place] Sodium [Moles/Vol] 135 mmol/L Low 136-144 [facility] Comment on above: Order Comment: Speci men Type: BLOOD SPECIMENOrdering Facility: [facility] Address: [address] [place] [address] Performed By: #### 2 4323-8, 46484-2, 3024-7, 3016-3 ####[facility] LABIA [id number] [place] [address] [place] Urea nitrogen [Mass/Vol] 42 mg/dL High 7-21 [facility] Comment on above: Order Comment: Speci men Type: BLOOD SPECIMENOrdering Facility: [facility] Address: [address] [place] [address] Performed By: #### 2 4323-8, 66244-4, 3024-7, 3016-3 ####[facility] LABCLIA [id number] [place] [address] [place] NT-proBNP SerPl-mCncon 01-09 -2025 Natriuretic peptide.B prohormone N-Terminal [Mass/Vol] 117 pg/mL Normal <450 [facility] Comment on above: Order Comment: Speci men Type: BLOOD SPECIMENOrdering Facility: [facility] Address: [address] [place] [address] Performed By: #### 2 4323-8, 68794-4, 3024-7, 3016-3 ####[facility] LABIA [id number] [place] [address] [place] T4 Free SerPl-mCncon 025 Free T4 [Mass/Vol] 2.0 ng/dL High 0.9-1.7 [facility] Comment on above: Order Comment: Speci men Type: BLOOD SPECIMENOrdering Facility: [facility] Address: [address] [place] [address] Performed By: #### 2 4323-8, 60476-5, 3024-7, 3016-3 ####[facility] LABIA [id number] [place] [address] [place] TSH SerPl-aCncon 05-11-2024 TSH Qn 2.320 m[IU]/L Normal 0.270-4.200 [facility] Comment on above: Order Comment: Speci men Type: BLOOD SPECIMENOrdering Facility: [facility] Address: [address] [place] [address] Performed By: #### 2 4323-8, 61841-8, 3024-7, 3016-3 ####[facility] [id number] [place] [address] [place] CNPChasity 05-08-2024 CNPN Telephone (FAMPWS) MICHAEL MEIER ([id number]) 1940 F Date Time Provider Department 05/08/24 MICHAEL PUGA During your visit today, we recorded the following information about you: Amanda Pratt RN 05/08/2024 9:01 AM Signed Marifer with [facility] calls to let provider know [...] Will address then. Thank you, Key Portillo APRN.COUNTER WAITER Allergies As of Date: 05/08/2024 Noted Allergy Reaction CIPROFLOXACIN 09/05/2018 2 - Rash DEMEROL (MEPERIDINE (PF)) 02/06/2011 11 - Vomiting OPIOIDS - MORPHINE ANALOGUES 03/17/2001 5 - Intolerance Comments: nausea, dizzy, "sees things" OPIOIDS-MEPERIDINE AND RELATED 02/17/2001 Comments: nausea/vomiting PENICILLIN [...] Hyperlipidemia [E78 (more content not included)... Normal [facility] Priscila 05-05-2024 CNPN Telephone (FAMPWS) ALEXANDRUMICHAEL HOWARD ([id number]) 1940 F Date Time Provider Department 05/05/24 MICHAEL PUGAWS During your visit today, we recorded the following information about you: July Marcano RN 05/05/2024 4:02 PM Signed Sergio PT with [facility] called in and reports they will be seeing Pt twice a week for 3 weeks for functional mobility training. Michael Puga DO 05/05/2024 4:40 PM Signed Noted Michael Puga DO Allergies As of Date: 05/05/2024 Noted Allergy Reaction CIPROFLOXACIN 09/05/2018 2 - Rash DEMEROL (MEPERIDINE (PF)) 02/06/2011 11 - Vomiting OPIOIDS - MORPHINE ANALOGUES 03/17/2001 5 - Intolerance Comments: nausea, dizzy, "sees things" OPIOIDS-MEPERIDINE AND RELATED 02/17/2001 Comments: nausea/vomiting PENICILLIN G 02/17/2001 Comments: imani PRAVACHOL (PRAVASTATIN SODIUM) 03/09/2016 14 - Other: See Comments Comments: Leg cramps SULFA (SULFONAMIDE ANTIBIOTICS) 03/17/2001 Comments: imani VICODIN (HYDROCODONE-ACETAMINO PHE*01/08/2005 5 - Intolerance Comments: dizzy,nausea,vomiting, headache ZITHROMAX (AZITHROMYCIN) 05/20/2017 5 - Intolerance Date Reviewed: 04/10/2024 Reviewed by: Sharon Jarrett APRN.COUNTER WAITER - Fully Assessed Reason for Visit: Home [...] [R73.01] 11/10/2016 (more content not included)... Normal [facility] Priscila 05-04-2024 CARMELINAN Telephone (FAMPWS) MICHAEL MEIER ([id number]) 1940 F Date Time Provider Department 05/04/24 [facility] During your visit today, we recorded the following information about you: Aly Tolentino LPN 05/04/2024 2:34 PM Signed Suha from [facility] calling with plan of care. [...] 03/17/2001 5 - Intolerance Comments: nausea, dizzy, "sees things" OPIOIDS-MEPERIDINE AND RELATED 02/17/2001 Comments: nausea/vomiting PENICILLIN G 02/17/2001 Comments: imani PRAVACHOL (PRAVASTATIN SODIUM) 03/09/2016 14 - Other: See Comments Comments: Leg cramps SULFA (SULFONAMIDE ANTIBIOTICS) 03/17/2001 Comments: hives VICODIN (HYDROCODONE-ACETAMINO PHE*01/08/2005 5 - Intolerance Comments: dizzy,nausea,vomiting, headache ZITHROMAX (AZITHROMYCIN) 05/20/2017 5 - Intolerance Date Reviewed: 04/10/2024 Reviewed by: Sharon Jarrett APRN.COUNTER WAITER - Fully Assessed Reason for Visit: Home [...] BMI 38.0-38.9,a (more content not included)... Normal [facility] Absolute neutrophil countOrd ered By: Jonny Vicente on 05-02-2024 Neutrophils (Bld) [#/Vol] 4.4 10*3/uL 2.0-7.7 [facility] Basic Metabolic Profile (BMP )on 05-02-2024 BUN/CRE 29.7 RATIO High 10-20 [facility] Comment on above: Performed By: #### L 100.0100, L500.2500 ####[facility] [address] [place], [address] CA,Total 8.7 mg/dL Normal 8.5-10.1 [facility] Comment on above: Performed By: #### L 100.0100, L500.2500 ####[facility] [address] [place], [address] Chloride [Moles/Vol] 100 mmol/L Normal 98-107 [facility] Comment on above: Performed By: #### L 100.0100, L500.2500 ####[facility] [address] [place], [address] CO2 [Moles/Vol] 33.0 mmol/L High 21.0-32.0 [facility] Comment on above: Performed By: #### L 100.0100, L500.2500 ####[facility] [address] [place], [address] Creatinine [Mass/Vol] 0.74 mg/dL Normal 0.55-1.02 [facility] Comment on above: Result Comment: The validity of the calculated GFR GFRAA in patients over70 years has not been determined. Clinical correlation isessential. Performed By: #### L 100.0100, L500.2500 ####[facility] [address] [place], [address] ECRCL 63.05 ml/min Normal [facility] Comment on above: Performed By: #### L 100.0100, L500.2500 ####[facility] [address] [place], [address] EST GFR - AA 96 mL/min Normal >60 [facility] Comment on above: Result Comment: Afri can [place] GFR Calc Performed By: #### L 100.0100, L500.2500 ####[facility] [address] [place], [address] GAP 7 Normal 5-15 [facility] Comment on above: Performed By: #### L 100.0100, L500.2500 ####[facility] [address] [place], [address] GFR/1.73 sq M.predicted among non-blacks MDRD (S/P/Bld) [Vol rate/Area] 80 mL/min/{1.73_m2} Normal >60 [facility] Comment on above: Result Comment: Non- GFR Calc Performed By: #### L 100.0100, L500.2500 ####[facility] [address] [place], [address] Glucose [Mass/Vol] 109 mg/dL High 74-106 [facility] [facility] Comment on above: Result Comment: Fast ing Glucose result from 100 to 125 mg/dLsuggests IMPAIRED HOMEOSTASIS per A.D.A. criteria. Performed By: #### L 100.0100, L500.2500 ####[facility] [address] [place], [address] Potassium [Moles/Vol] 3.3 mmol/L Low 3.5-5.1 [facility] Comment on above: Performed By: #### L 100.0100, L500.2500 ####[facility] [address] [place], [address] Sodium [Moles/Vol] 139 mmol/L Normal 136-145 [facility] Comment on above: Performed By: #### L 100.0100, L500.2500 ####[facility] [address] [place], [address] Urea nitrogen [Mass/Vol] 22 mg/dL High 7-18 [facility] Comment on above: Performed By: #### L 100.0100, L500.2500 ####[facility] [address] [place], [address] Basophil percentageOrdered B y: Jonny Vicente on 05-02-2024 Basophils/100 WBC (Bld) 0.7 % 0-1 [facility] Blood urea nitrogen (BUN)/cr eatinine ratioOrdered By: Jonny Vicente on 05-02-2024 Urea nitrogen/Creatinine [Mass ratio] 29.7 mg/mg High 10- [facility] CBC W/Diff, Automatedon 12- Absolute Lymph 1.38 X10 3/uL Normal 0.83-4.51 [facility] Comment on above: Performed By: #### L 100.0100, L500.2500 ####[facility] [address] [place], [address] Absolute Neut 4.4 X10 3/uL Normal 2.0-7.7 [facility] Comment on above: Performed By: #### L 100.0100, L500.2500 ####[facility] [address] [place], [address] Basophils/100 WBC (Bld) 0.7 % Normal 0-1 [facility] Comment on above: Performed By: #### L 100.0100, L500.2500 ####[facility] [address] [place], [address] Eosinophils/100 WBC (Bld) 3.6 % Normal 0-5 [facility] Comment on above: Performed By: #### L 100.0100, L500.2500 ####[facility] [address] [place], [address] Erythrocyte distribution width (RBC) [Ratio] 16.2 % High 11.6-14.6 [facility] Comment on above: Performed By: #### L 100.0100, L500.2500 ####[facility] [address] [place], [address] Hematocrit (Bld) [Volume fraction] 34.8 % Low 37-47 [facility] Comment on above: Performed By: #### L 100.0100, L500.2500 ####[facility] [address] [place], [address] Hemoglobin (Bld) [Mass/Vol] 11.2 g/dL Low 12.0-15.0 [facility] Comment on above: Performed By: #### L 100.0100, L500.2500 ####[facility] [address] [place], [address] IG% 0.300 Normal 0.0-0.9 [facility] Comment on above: Result Comment: IG% - Immature Granulocytes (promyelocytes, myelocytes andmetamyelocytes) > 1% indicates that a LEFT SHIFT is Present. Performed By: #### L 100.0100, L500.2500 ####[facility] [address] [place], [address] Lymphocytes/100 WBC (Bld) 19.8 % Normal 19-41 [facility] Comment on above: Performed By: #### L 100.0100, L500.2500 ####[facility] [address] [place], [address] MCH (RBC) [Entitic mass] 27.7 pg Normal 27.0-32.0 [facility] Comment on above: Performed By: #### L 100.0100, L500.2500 ####[facility] [address] [place], [address] MCHC (RBC) [Mass/Vol] 32.2 g/dL Normal 32-36 [facility] Comment on above: Performed By: #### L 100.0100, L500.2500 ####[facility] [address] [place], [address] MCV (RBC) [Entitic vol] 85.9 fL Normal 81-99 [facility] Comment on above: Performed By: #### L 100.0100, L500.2500 ####[facility] [address] [place], [address] Monocytes/100 WBC (Bld) 11.9 % High 0-10 [facility] Comment on above: Performed By: #### L 100.0100, L500.2500 ####[facility] [address] [place], [address] Neutrophils/100 WBC (Bld) 63.7 % Normal 47-70 [facility] Comment on above: Performed By: #### L 100.0100, L500.2500 ####[facility] [address] [place], [address] Nucleated RBC (Bld) [#/Vol] 0 10*3/uL Normal 0-5 [facility] Comment on above: Performed By: #### L 100.0100, L500.2500 ####[facility] [address] [place], [address] Platelet mean volume (Bld) [Entitic vol] 10.8 fL Normal 6.2-12.0 [facility] Comment on above: Performed By: #### L 100.0100, L500.2500 ####[facility] [address] [place], [address] Platelets (Bld) [#/Vol] 241 10*3/uL Normal 150-450 [facility] Comment on above: Performed By: #### L 100.0100, L500.2500 ####[facility] [address] [place], [address] RBC (Bld) [#/Vol] 4.05 10*6/uL Low 4.2-5.4 [facility] Comment on above: Performed By: #### L 100.0100, L500.2500 ####[facility] [address] [place], [address] RDW SD 51.3 fl High 35.1-43.9 [facility] Comment on above: Performed By: #### L 100.0100, L500.2500 ####[facility] [address] [place], [address] WBC (Bld) [#/Vol] 7.0 10*3/uL Normal 4.4-11.0 [facility] Comment on above: Performed By: #### L 100.0100, L500.2500 ####[facility] [address] [place], [address] Carbon dioxide measurementOr dered By: Jonny Vicente on 05-02-2024 CO2 [Moles/Vol] 33.0 mmol/L High 21.0-32.0 [facility] Chloride measurementOrdered By: Jonny Vicente on 05-02-2024 Chloride [Moles/Vol] 100 mmol/L 98-107 [facility] Discharge Instructionon 04-04 Discharge Instruction Normal [facility] Eosinophil percentageOrdered By: Jonny Vicente on 05-02-2024 Eosinophils/100 WBC (Bld) 3.6 % 0-5 [facility] Erythrocyte distribution wid th ratioOrdered By: Jonny Vicente on 05-02-2024 Erythrocyte distribution width (RBC) [Ratio] 16.2 % High 11.6-14.6 [facility] Erythrocyte distribution wid th standard deviationOrdered By: Jonyn Vicente on 05-02-2024 Erythrocyte distribution width (RBC) [Entitic vol] 51.3 fL High 35.1-43.9 [facility] Estimated glomerular filtrat ion rate (GFR) AmericanOrdered By: Jonny Vicente on 05-02-2024 Estimated GFR (MDRD) Amer 96 mL/min >60 [facility] Comment on above: GFR Calc Estimation of creatinine demetrius aranceOrdered By: Jonny Vicente on 05-02-2024 Estimated Creatinine Clearance Calc 63.05 ml/min [facility] Glomerular filtration rate ( GFR) estimationOrdered By: Jonny Vicente on 05-02-2024 Estimated GFR (MDRD) Non-Af Amer 80 mL/min >60 [facility] Comment on above: Non- GFR Calc Glucose measurementOrdered B y: Jonny Vicente on 05-02-2024 Glucose [Mass/Vol] 109 mg/dL High 74-106 [facility] Comment on above: Fasting Glucose resu lt from 100 to 125 mg/dL suggests IMPAIRED HOMEOSTASIS per A.D.A. criteria. Hematocrit Auto (Bld) [Volum e fraction]Ordered By: Jonny Vicente on 05-02-2024 Hematocrit (Bld) [Volume fraction] 34.8 % Low 37-47 [facility] Hemoglobin measurementOrdere d By: Jonny Vicente on 05-02-2024 Hemoglobin (Bld) [Mass/Vol] 11.2 g/dL Low 12.0-15.0 [facility] Immature granulocytes/100 WB C Auto (Bld)Ordered By: Jonny Vicente on 05-02-2024 Immature granulocytes/100 WBC (Bld) 0.300 % 0.0-0.9 [facility] Comment on above: IG% - Immature Granu locytes (promyelocytes, myelocytes and metamyelocytes) > 1% indicates that a LEFT SHIFT is Present. Lymphocytes Auto (Unsp spec) [#/Vol]Ordered By: Jonny Vicente on 05-02-2024 Lymphocytes (Bld) [#/Vol] 1.38 10*3/uL 0.83-4.51 [facility] Lymphocytes/100 WBC Auto (Un sp spec)Ordered By: Jonny Vicente on 05-02-2024 Lymphocytes/100 WBC (Bld) 19.8 % 19-41 [facility] MCV (mean corpuscular volume ) determinationOrdered By: Jonny Vicente on 05-02-2024 MCV (RBC) [Entitic vol] 85.9 fL 81-99 [facility] Mean corpuscular hemoglobin (MCH) determinationOrdered By: Jonny Vicente on 05-02-2024 MCH (RBC) [Entitic mass] 27.7 pg 27.0-32.0 [facility] Mean corpuscular hemoglobin concentration (MCHC) determinationOrdered By: Jonny Vicente on 05-02-2024 MCHC (RBC) [Mass/Vol] 32.2 g/dL 32-36 [facility] Mean platelet volume determi nationOrdered By: Jonny Vicente on 05-02-2024 Platelet mean volume (Bld) [Entitic vol] 10.8 fL 6.2-12.0 [facility] Monocyte percentageOrdered B y: Jonny Vicente on 05-02-2024 Monocytes/100 WBC (Bld) 11.9 % High 0-10 [facility] Neutrophil percentageOrdered By: Jonny Vicente on 05-02-2024 Neutrophils/100 WBC (Bld) 63.7 % 47-70 [facility] Nucleated red blood cell per centageOrdered By: Jonny Vicente on 05-02-2024 Nucleated RBC/100 WBC (Bld) [Ratio] 0 % 0-5 [facility] Platelet countOrdered By: Alyson Vicente on 05-02-2024 Platelets (Bld) [#/Vol] 241 10*3/uL 150-450 [facility] Potassium measurementOrdered By: Jonny Vicente on 05-02-2024 Potassium [Moles/Vol] 3.3 mmol/L Low 3.5-5.1 [facility] RBC Auto (Bld) [#/Vol]Ordere d By: Jonny Vicente on 05-02-2024 RBC (Bld) [#/Vol] 4.05 10*6/uL Low 4.2-5.4 [facility] Serum anion gap measurementO rdered By: Jonny Vicente on 05-02-2024 Anion gap [Moles/Vol] 7 mmol/L 5-15 [facility] Serum or plasma calcium julee urement (mass/volume)Ordered By: Jonny Vicente on 05-02-2024 Calcium [Mass/Vol] 8.7 mg/dL 8.5-10.1 [facility] Serum or plasma creatinine m easurement (mass/volume)Ordered By: Jonny Vicente on 05-02-2024 Creatinine [Mass/Vol] 0.74 mg/dL 0.55-1.02 [facility] Comment on above: The validity of the calculated GFR & GFRAA in patients over 70 years has not been determined. Clinical correlation is essential. Serum or plasma urea nitroge n measurement (mass/volume)Ordered By: Jonny Vicente on 05-02-2024 Urea nitrogen [Mass/Vol] 22 mg/dL High - [facility] Sodium levelOrdered By: Timmy Vicente on 05-02-2024 Sodium [Moles/Vol] 139 mmol/L 136-145 [facility] Urine Cultureon 05-02-2024 [facility] Comments: Use ED UA Mixed Gram Positive Organisms [place] Count 25,000-50,000 MIXC Mixed contaminants. Submit a new specimen if indicated. Normal [facility] Comment on above: Performed By: #### M 100.2200 ####[facility] [address] [place], [address] White blood cell (WBC) count Ordered By: Jonny Vicente on 05-02-2024 WBC (Bld) [#/Vol] 7.0 10*3/uL 4.4-11.0 [facility] Albumin to globulin ratioOrd ered By: Susan Duran on 05-01-2024 Albumin/Globulin [Mass ratio] 0.8 {ratio} Low 0.9-2.4 [facility] Comment on above: Performed By: #### L 500.4050, L100.0100, L500.4100 ####[facility] [address] [place], [address] Bilirubin, totalOrdered By: Susan Duran on 05-01-2024 Bilirubin [Mass/Vol] 1.60 mg/dL High 0.20-1.00 [facility] Comment on above: For patients on eltr ombopag therapy, use of Dimension [place] TBIL is not recommended. Result Comment: For patients on eltrombopag therapy, use of Dimension [place] TBIL is not recommended. Performed By: #### L 500.4050, L100.0100, L500.4100 ####[facility] [address] [place], [address] CBC W/Diff, Automatedon 04-04 Absolute Lymph 1.39 X10 3/uL Normal 0.83-4.51 [facility] Comment on above: Performed By: #### L 500.4050, L100.0100, L500.4100 ####[facility] [address] [place], [address] Absolute Neut 4.5 X10 3/uL Normal 2.0-7.7 [facility] Comment on above: Performed By: #### L 500.4050, L100.0100, L500.4100 ####[facility] [address] [place], [address] Basophils/100 WBC (Bld) 0.8 % Normal 0-1 [facility] Comment on above: Performed By: #### L 500.4050, L100.0100, L500.4100 ####[facility] [address] [place], [address] Eosinophils/100 WBC (Bld) 2.5 % Normal 0-5 [facility] Comment on above: Performed By: #### L 500.4050, L100.0100, L500.4100 ####[facility] [address] [place], [address] Erythrocyte distribution width (RBC) [Ratio] 16.5 % High 11.6-14.6 [facility] Comment on above: Performed By: #### L 500.4050, L100.0100, L500.4100 ####[facility] [address] [place], [address] Hematocrit (Bld) [Volume fraction] 34.0 % Low 37-47 [facility] Comment on above: Performed By: #### L 500.4050, L100.0100, L500.4100 ####[facility] [address] [place], [address] Hemoglobin (Bld) [Mass/Vol] 11.0 g/dL Low 12.0-15.0 [facility] Comment on above: Performed By: #### L 500.4050, L100.0100, L500.4100 ####[facility] [address] [place], [address] IG% 0.100 Normal 0.0-0.9 [facility] Comment on above: Result Comment: IG% - Immature Granulocytes (promyelocytes, myelocytes andmetamyelocytes) > 1% indicates that a LEFT SHIFT is Present. Performed By: #### L 500.4050, L100.0100, L500.4100 ####[facility] [address] [place], [address] Lymphocytes/100 WBC (Bld) 19.6 % Normal 19-41 [facility] Comment on above: Performed By: #### L 500.4050, L100.0100, L500.4100 ####[facility] [address] [place], [address] MCH (RBC) [Entitic mass] 27.5 pg Normal 27.0-32.0 [facility] Comment on above: Performed By: #### L 500.4050, L100.0100, L500.4100 ####[facility] [address] [place], [address] MCHC (RBC) [Mass/Vol] 32.4 g/dL Normal 32-36 [facility] Comment on above: Performed By: #### L 500.4050, L100.0100, L500.4100 ####[facility] [address] [place], [address] MCV (RBC) [Entitic vol] 85.0 fL Normal 81-99 [facility] Comment on above: Performed By: #### L 500.4050, L100.0100, L500.4100 ####[facility] [address] [place], [address] Monocytes/100 WBC (Bld) 13.4 % High 0-10 [facility] Comment on above: Performed By: #### L 500.4050, L100.0100, L500.4100 ####[facility] [address] [place], [address] Neutrophils/100 WBC (Bld) 63.6 % Normal 47-70 [facility] Comment on above: Performed By: #### L 500.4050, L100.0100, L500.4100 ####[facility] [address] [place], [address] Nucleated RBC (Bld) [#/Vol] 0 10*3/uL Normal 0-5 [facility] Comment on above: Performed By: #### L 500.4050, L100.0100, L500.4100 ####[facility] [address] [place], [address] Platelet mean volume (Bld) [Entitic vol] 11.2 fL Normal 6.2-12.0 [facility] Comment on above: Performed By: #### L 500.4050, L100.0100, L500.4100 ####[facility] [address] [place], [address] Platelets (Bld) [#/Vol] 193 10*3/uL Normal 150-450 [facility] Comment on above: Performed By: #### L 500.4050, L100.0100, L500.4100 ####[facility] [address] [place], [address] RBC (Bld) [#/Vol] 4.00 10*6/uL Low 4.2-5.4 [facility] Comment on above: Performed By: #### L 500.4050, L100.0100, L500.4100 ####[facility] [address] [place], [address] RDW SD 51.2 fl High 35.1-43.9 [facility] Comment on above: Performed By: #### L 500.4050, L100.0100, L500.4100 ####[facility] [address] [place], [address] WBC (Bld) [#/Vol] 7.1 10*3/uL Normal 4.4-11.0 [facility] Comment on above: Performed By: #### L 500.4050, L100.0100, L500.4100 ####[facility] [address] [place], [address] [facility]NP[facility] Telephone (FAMPWS) MICHAEL MEIER ([id number]) 1940 Date Time Provider Department 05/01/24 MICHAEL PUGA During your visit today, we recorded the following information about you: Constance Ervin LPN 05/01/2024 2:21 PM Signed Larissa with [facility] calls to report pt is currently in the hospital with heart failure exacerbation. Pt will most likely be discharged 05/03/24. Pt has HH orders for PT, OT, and Longterm. Larissa is requesting VO that pcp will [...] 03/17/2001 5 - Intolerance Comments: nausea, dizzy, "sees things" OPIOIDS-MEPERIDINE AND RELATED 02/17/2001 Comments: nausea/vomiting PENICILLIN G 02/17/2001 Comments: hives PRAVACHOL (PRAVASTATIN SODIUM) 03/09/2016 14 - Other: See Comments Comments: Leg cramps SULFA (SULFONAMIDE ANTIBIOTICS) 03/17/2001 Comments: hives VICODIN (HYDROCODONE-ACETAMINO PHE*01/08/2005 5 - Intolerance Comments: dizzy,nausea,vomiting, headache ZITHROMAX (AZITHROMYCIN) 05/20/2017 5 - Intolerance Date Reviewed: 04/10/2024 Reviewed by: Sharon Jarrett APRN.COUNTER WAITER - Fully Assessed Reason for Visit: verbal [...] atrial fibrilla (more content not included)... Normal [facility] Metabolic Prof shahida 05-01-2024 ALK P 80 U/L Normal 45-117 [facility] Comment on above: Performed By: #### L 500.4050, L100.0100, L500.4100 ####[facility] [address] [place], [address] BUN/CRE 20.0 RATIO Normal - [facility] Comment on above: Performed By: #### L 500.4050, L100.0100, L500.4100 ####[facility] [address] [place], [address] CA,Total 8.8 mg/dL Normal 8.5-10.1 [facility] Comment on above: Performed By: #### L 500.4050, L100.0100, L500.4100 ####[facility] [address] [place], [address] Chloride [Moles/Vol] 100 mmol/L Normal 98-107 [facility] Comment on above: Performed By: #### L 500.4050, L100.0100, L500.4100 ####[facility] [address] [place], [address] CO2 [Moles/Vol] 35.0 mmol/L High 21.0-32.0 [facility] Comment on above: Performed By: #### L 500.4050, L100.0100, L500.4100 ####[facility] [address] [place], [address] Creatinine [Mass/Vol] 0.85 mg/dL Normal 0.55-1.02 [facility] Comment on above: Result Comment: The validity of the calculated GFR GFRAA in patients over70 years has not been determined. Clinical correlation isessential. Performed By: #### L 500.4050, L100.0100, L500.4100 ####[facility] [address] [place], [address] ECRCL 59.98 ml/min Normal [facility] Comment on above: Performed By: #### L 500.4050, L100.0100, L500.4100 ####[facility] [address] [place], [address] EST GFR - AA 82 mL/min Normal >60 [facility] Comment on above: Result Comment: Afri can [place] GFR Calc Performed By: #### L 500.4050, L100.0100, L500.4100 ####[facility] [address] [place], [address] GAP 3 Low 5-15 [facility] Comment on above: Performed By: #### L 500.4050, L100.0100, L500.4100 ####[facility] [address] [place], [address] GFR/1.73 sq M.predicted among non-blacks MDRD (S/P/Bld) [Vol rate/Area] 68 mL/min/{1.73_m2} Normal >60 [facility] Comment on above: Result Comment: Non- GFR Calc Performed By: #### L 500.4050, L100.0100, L500.4100 ####[facility] [address] [place], [address] Glucose [Mass/Vol] 117 mg/dL High 74-106 [facility] Comment on above: Result Comment: Fast ing Glucose result from 100 to 125 mg/dLsuggests IMPAIRED HOMEOSTASIS per A.D.A. criteria. Performed By: #### L 500.4050, L100.0100, L500.4100 ####[facility] [address] [place], [address] Potassium [Moles/Vol] 3.0 mmol/L Low 3.5-5.1 [facility] Comment on above: Performed By: #### L 500.4050, L100.0100, L500.4100 ####[facility] [address] [place], [address] Sodium [Moles/Vol] 138 mmol/L Normal 136-145 [facility] Comment on above: Performed By: #### L 500.4050, L100.0100, L500.4100 ####[facility] [address] [place], [address] T PROT 6.3 g/dL Low 6.4-8.2 [facility] Comment on above: Performed By: #### L 500.4050, L100.0100, L500.4100 ####[facility] [address] [place], [address] Urea nitrogen [Mass/Vol] 17 mg/dL Normal 7-18 [facility] Comment on above: Performed By: #### L 500.4050, L100.0100, L500.4100 ####[facility] [address] [place], [address] Comprehensive Metabolic Prof ilOrdered By: Susan Duran on 05-01-2024 AST [Catalytic activity/Vol] 18 U/L Normal 15-37 [facility] Comment on above: Performed By: #### L 500.4050, L100.0100, L500.4100 ####[facility] [address] [place], [address] High density lipoprotein (HD L) measurementOrdered By: Susan Duran on 05-01-2024 Cholesterol in HDL [Mass/Vol] 54 mg/dL Normal [facility] Comment on above: The drugs N-Acetylcy steine and Metamizole may falsely depress this assay. Reference Range HDL <40 mg/dL Low HDL Cholesterol HDL >or= 60 mg/dL High HDL Cholesterol Result Comment: The drugs N-Acetylcysteine and Metamizole may falselydepress this assay. Reference Range HDL <40 mg/dL Low HDL Cholesterol HDL >or= 60 mg/dL High HDL Cholesterol Performed By: #### L 500.4050, L100.0100, L500.4100 ####[facility] [address] [place], [address] Lipid Profileon 05-01-2024 Cholesterol in VLDL [Mass/Vol] 20 mg/dL Normal 5-40 [facility] Comment on above: Performed By: #### L 500.4050, L100.0100, L500.4100 ####[facility] [address] [place], [address] Low density lipoprotein (LDL ) cholesterol measurementOrdered By: Susan Roger on 05-01-2024 Cholesterol in LDL [Mass/Vol] 66 mg/dL Normal 0-130 [facility] Comment on above: Performed By: #### L 500.4050, L100.0100, L500.4100 ####[facility] [address] [place], [address] Serum globulin measurementOr dered By: Susan Duran on 05-01-2024 Globulin (S) [Mass/Vol] 3.5 g/dL Normal 2.2-4.2 [facility] Comment on above: Performed By: #### L 500.4050, L100.0100, L500.4100 ####[facility] [address] [place], [address] Serum or plasma alanine sprague otransferase (ALT) measurementOrdered By: Susan Roger on 05-01-2024 ALT [Catalytic activity/Vol] 24 U/L Normal 13-56 [facility] Comment on above: Performed By: #### L 500.4050, L100.0100, L500.4100 ####[facility] [address] [place], [address] Serum or plasma albumin julee urement (mass/volume)Ordered By: Susan Duran on 05-01-2024 Albumin [Mass/Vol] 2.8 g/dL Low 3.2-5.0 [facility] Comment on above: Performed By: #### L 500.4050, L100.0100, L500.4100 ####[facility] [address] [place], [address] Serum or plasma alkaline rachel sphatase measurementOrdered By: Susan Duran on 05-01-2024 ALP [Catalytic activity/Vol] 80 U/L 45-117 [facility] Serum or plasma cholesterol measurement (mass/volume)Ordered By: Susan Duran on 05-01-2024 Cholesterol [Mass/Vol] 140 mg/dL Normal 200 [facility] Comment on above: <200 mg/dL Desirable 200-240 mg/dL Borderline >240 mg/dL High Risk Result Comment: <200 mg/dL Desirable 200-240 mg/dL Borderline >240 mg/dL High Risk Performed By: #### L 500.4050, L100.0100, L500.4100 ####[facility] [address] [facility] [address] [place], [place], [id number] Total proteinOrdered By: Ashu Duran on 05-01-2024 Protein [Mass/Vol] 6.3 g/dL Low 6.4-8.2 [facility] Triglycerides measurementOrd ered By: Susan Duran on 05-01-2024 Triglyceride [Mass/Vol] 102 mg/dL Normal [facility] Comment on above: The drugs N-Acetylcy [...] Performed By: #### L 500.4050, L100.0100, L500.4100 ####[facility] [address] [facility] [place], [place], [id number] Very low density lipoprotein (VLDL) cholesterol measurementOrdered By: Susan Duran on 05-01-2024 VLDL Cholesterol 20 mg/dL 5-40 [facility] 12 Lead EKGon 04-30-2024 12 Lead EKG Normal [facility] Amorphous sediment detection in urine sediment by light microscopyOrdered By: Aravind Recio on 04-30-2024 Amorphous sediment LM Ql (Urine sed) 1+ [facility] BNP (brain natriuretic pepti de measurement)Ordered By: Aravind Recio on 04-30-2024 Natriuretic peptide B (Bld) [Mass/Vol] 266.9 pg/mL High 0-100 [facility] BNP,B-Type NATRIURETIC PEPTI Kenyatta 04-30-2024 Natriuretic peptide B (Bld) [Mass/Vol] 266.9 pg/mL High 0-100 [facility] Comment on above: Performed By: #### L 300.8000, L501.5200, L500.2500, L501.9520, L503.6620 ####[facility] [id number] [place], [address] Basic Metabolic Profile (BMP )on 04-30-2024 BUN/CRE 19.1 RATIO Normal 10-20 [facility] Comment on above: Performed By: #### L 300.8000, L501.5200, L500.2500, L501.9520, L503.6620 ####[facility] [address] [place], [address] CA,Total 9.0 mg/dL Normal 8.5-10.1 [facility] Comment on above: Performed By: #### L 300.8000, L501.5200, L500.2500, L501.9520, L503.6620 ####[facility] [address] [place], [address] Chloride [Moles/Vol] 99 mmol/L Normal 98-107 [facility] Comment on above: Performed By: #### L 300.8000, L501.5200, L500.2500, L501.9520, L503.6620 ####[facility] [address] [place], [address] CO2 [Moles/Vol] 33.0 mmol/L High 21.0-32.0 [facility] Comment on above: Performed By: #### L 300.8000, L501.5200, L500.2500, L501.9520, L503.6620 ####[facility] [address] [place], [address] Creatinine [Mass/Vol] 0.68 mg/dL Normal 0.55-1.02 [facility] Comment on above: Result Comment: The validity of the calculated GFR GFRAA in patients over70 years has not been determined. Clinical correlation isessential. Performed By: #### L 300.8000, L501.5200, L500.2500, L501.9520, L503.6620 ####[facility] [address] [place], [address] ECRCL 65.47 ml/min Normal [facility] Comment on above: Performed By: #### L 300.8000, L501.5200, L500.2500, L501.9520, L503.6620 ####[facility] [address] [place], [address] EST GFR - AA 106 mL/min Normal >60 [facility] Comment on above: Result Comment: Afri can Australian GFR Calc Performed By: #### L 300.8000, L501.5200, L500.2500, L501.9520, L503.6620 ####[facility] [address] [place], [address] GAP 7 Normal 5-15 [facility] Comment on above: Performed By: #### L 300.8000, L501.5200, L500.2500, L501.9520, L503.6620 ####[facility] [address] [place], [address] GFR/1.73 sq M.predicted among non-blacks MDRD (S/P/Bld) [Vol rate/Area] 88 mL/min/{1.73_m2} Normal >60 [facility] Comment on above: Result Comment: Non- GFR Calc Performed By: #### L 300.8000, L501.5200, L500.2500, L501.9520, L503.6620 ####[facility] [address] [place], [address] Glucose [Mass/Vol] 127 mg/dL High 74-106 [facility] Comment on above: Result Comment: Fast ing Glucose result greater than or equal to 126 mg/dLsuggests DIABETES MELLITUS per A.D.A. criteria. Performed By: #### L 300.8000, L501.5200, L500.2500, L501.9520, L503.6620 ####[facility] [address] [place], [address] Potassium [Moles/Vol] 2.8 mmol/L Low 3.5-5.1 [facility] Comment on above: Performed By: #### L 300.8000, L501.5200, L500.2500, L501.9520, L503.6620 ####[facility] [address] [place], [address] Sodium [Moles/Vol] 139 mmol/L Normal 136-145 [facility] Comment on above: Performed By: #### L 300.8000, L501.5200, L500.2500, L501.9520, L503.6620 ####[facility] [address] [place], [address] Urea nitrogen [Mass/Vol] 13 mg/dL Normal 7-18 [facility] Comment on above: Performed By: #### L 300.8000, L501.5200, L500.2500, L501.9520, L503.6620 ####[facility] [address] [place], [address] Bilirubin Test strip Ql (U)O rdered By: Aravind Recio on 04-30-2024 Bilirubin Ql (U) Negative Negative [facility] Bilirubin directOrdered By: Aravind Recio on 04-30-2024 Bilirubin.direct [Mass/Vol] 0.52 mg/dL High 0.00-0.30 [facility] CBC W/Diff, Automatedon 12-2 Absolute Lymph 1.24 X10 3/uL Normal 0.83-4.51 [facility] Comment on above: Performed By: #### L 100.0100 ####[facility] [address] [place], [address] Absolute Neut 10.4 X10 3/uL High 2.0-7.7 [facility] Comment on above: Performed By: #### L 100.0100 ####[facility] [address] [place], [address] Basophils/100 WBC (Bld) 0.4 % Normal 0-1 [facility] Comment on above: Performed By: #### L 100.0100 ####[facility] [address] [place], [address] Eosinophils/100 WBC (Bld) 1.3 % Normal 0-5 [facility] Comment on above: Performed By: #### L 100.0100 ####[facility] [address] [place], [address] Erythrocyte distribution width (RBC) [Ratio] 16.7 % High 11.6-14.6 [facility] Comment on above: Performed By: #### L 100.0100 ####[facility] [address] [place], [address] Hematocrit (Bld) [Volume fraction] 36.9 % Low 37-47 [facility] Comment on above: Performed By: #### L 100.0100 ####[facility] [address] [place], [address] Hemoglobin (Bld) [Mass/Vol] 11.9 g/dL Low 12.0-15.0 [facility] Comment on above: Performed By: #### L 100.0100 ####[facility] [address] [place], [address] IG% 0.400 Normal 0.0-0.9 [facility] Comment on above: Result Comment: IG% - Immature Granulocytes (promyelocytes, myelocytes andmetamyelocytes) > 1% indicates that a LEFT SHIFT is Present. Performed By: #### L 100.0100 ####[facility] [address] [place], [address] Lymphocytes/100 WBC (Bld) 9.3 % Low 19-41 [facility] Comment on above: Performed By: #### L 100.0100 ####[facility] [address] [place], [address] MCH (RBC) [Entitic mass] 27.7 pg Normal 27.0-32.0 [facility] Comment on above: Performed By: #### L 100.0100 ####[facility] [address] [place], [address] MCHC (RBC) [Mass/Vol] 32.2 g/dL Normal 32-36 [facility] Comment on above: Performed By: #### L 100.0100 ####[facility] [address] [place], [address] MCV (RBC) [Entitic vol] 85.8 fL Normal 81-99 [facility] Comment on above: Performed By: #### L 100.0100 ####[facility] [address] [place], [address] Monocytes/100 WBC (Bld) 11.0 % High 0-10 [facility] Comment on above: Performed By: #### L 100.0100 ####[facility] [address] [place], [address] Neutrophils/100 WBC (Bld) 77.6 % High 47-70 [facility] Comment on above: Performed By: #### L 100.0100 ####[facility] [address] [place], [address] Nucleated RBC (Bld) [#/Vol] 0 10*3/uL Normal 0-5 [facility] Comment on above: Performed By: #### L 100.0100 ####[facility] [address] [place], [address] Platelet mean volume (Bld) [Entitic vol] 10.8 fL Normal 6.2-12.0 [facility] Comment on above: Performed By: #### L 100.0100 ####[facility] [address] [place], [address] Platelets (Bld) [#/Vol] 236 10*3/uL Normal 150-450 [facility] Comment on above: Performed By: #### L 100.0100 ####[facility] [address] [place], [address] RBC (Bld) [#/Vol] 4.30 10*6/uL Normal 4.2-5.4 [facility] Comment on above: Performed By: #### L 100.0100 ####[facility] [address] [place], [address] RDW SD 52.8 fl High 35.1-43.9 [facility] Comment on above: Performed By: #### L 100.0100 ####[facility] [address] [place], [address] WBC (Bld) [#/Vol] 13.4 10*3/uL High 4.4-11.0 [facility] Comment on above: Performed By: #### L 100.0100 ####[facility] [address] [place], [address] CTA Chest W/WO Contraston CTA Chest W/WO Contrast Normal [facility] Chest PA and Lateralon 04-30 Chest PA and Lateral Normal [facility] D-Dimer Quantitative (DVT/PE )on 04-30-2024 D-DIMER QUANT 0.83 FEU/ug/m Invalid Interpretation Code 0.27-0.49 [facility] Comment on above: Result Comment: D-Di rand ELEVATED (>0.49): Additional studies and clinicalassessments are indicated to conclude diagnosis of:Deep Vein Thrombosis (DVT) or Pulmonary Embolism (PE)CRITICAL VALUE CALLED TO [facility]04/30/24 0731 Yessenia Kern.RESULTS READ BACK BY SAME. Performed By: #### L 300.8000, L501.5200, L500.2500, L501.9520, L503.6620 ####[facility] [address] [place], [place], [id number] D-dimer measurement for deep venous thrombosisOrdered By: Aravind Recio on 04-30-2024 D-Dimer Quantitative (PE/DVT) 0.83 FEU/ug/m High 0.27-0.49 [facility] Comment on above: D-Dimer ELEVATED (>0 .49): Additional studies and clinicalassessments are indicated to conclude diagnosis of:Deep Vein Thrombosis (DVT) or Pulmonary Embolism (PE)CRITICAL VALUE CALLED TO [place] [id number] 0731 Yessenia Kern.RESULTS READ BACK BY SAME. Direct serum free thyroxine (FT4) measurementOrdered By: Susan Duran on 04-30-2024 Free T4 [Mass/Vol] 1.90 ng/dL High 0.76-1.46 [facility] Emergency Department Summary on 04-30-2024 Emergency Department Summary Normal [facility] Epithelial cells.renal LM.HP F (Urine sed) [#/Area]Ordered By: Aravind Recio on 04-30-2024 Urine Renal Epithelial Cells 0-5 SEEN /hpf 0-5 [facility] Epithelial cells.squamous LM Ql (Urine sed)Ordered By: Aravind Recio on 04-30-2024 Epithelial cells.squamous LM.HPF (Urine sed) [#/Area] 5 /[HPF] 5-10 [facility] Glucose Ql (U)Ordered By: Yanira Recio on 04-30-2024 Urine Glucose (UA) Normal mg/dl [facility] 04-30-2024 H&P Exam - Hospitalist Normal [facility] Influenza virus A and B and SARS-CoV-2 (COVID-19) and Respiratory syncytial virus RNAOrdered By: Aravind Recio on 04-30-2024 SARS-CoV-2 (COVID-19) RNA DUSTIN+probe Ql (Unsp spec) [facility] International normalized rat io (INR) calculationOrdered By: Aravind Recio on 04-30-2024 INR Coag (Bld) [Relative time] 1.2 {INR} [facility] Ketones Test strip Ql (U)Ord ered By: Aravind Recio on 04-30-2024 Ketones Ql (U) Negative Negative [facility] L501.4020on 04-30-2024 TROPONIN-I HS 43 pg/mL Normal 3.0-54.0 [facility] Comment on above: Order Comment: Comme nts: SPECIMEN #3'TROP' Serial specimen #1, #2 or #3: 3 Result Comment: Plea se Note: New Test Units and Gender Specific Reference Ranges. For more information see Policy Stat Procedure [place] High Sensitivity Troponin (TNIH) and attachments. Performed By: #### L 501.4020 ####[facility] [address] [facility] [place], [address] TROPONIN-I HS 56 pg/mL High 3.0-54.0 [facility] Comment on above: Order Comment: Comme nts: SPECIMEN #2'TROP' Serial specimen #1, #2 or #3: 2 Result Comment: Plea se Note: New Test Units and Gender Specific Reference Ranges. For more information see Policy Stat Procedure [place] High Sensitivity Troponin (TNIH) and attachments. Performed By: #### L 501.4020 ####[facility] [address] [place], [address] TROPONIN-I HS 65 pg/mL High 3.0-54.0 [facility] Comment on above: Order Comment: 'TROP ' Serial specimen #1, #2 or #3: 1 Result Comment: Plea se Note: New Test Units and Gender Specific Reference Ranges. For more information see Policy Stat Procedure [place] High Sensitivity Troponin (TNIH) and attachments. Performed By: #### L 501.4020 ####[facility] [address] [place], [address] Lipaseon 04-30-2024 Lipase [Catalytic activity/Vol] 12 U/L Low 13-75 [facility] Comment on above: Result Comment: Tomasa garcia note:LIPASE revised reference range effective 22.New Lipase methodology. Expected to produce lower valuesthan the previous assay method.NEW Reference Range: 13 - 75 U/L Performed By: #### L 501.2450, L500.3400 ####[facility] [address] [place], [address] Lipase measurementOrdered By : Aravind Recio on 04-30-2024 Lipase [Catalytic activity/Vol] 12 U/L Low 13-75 [facility] Comment on above: Please note:LIPASE r evised reference range effective 22. New Lipase methodology. Expected to produce lower values than the previous assay method. NEW Reference Range: 13 - 75 U/L Liver Profileon 04-30-2024 Albumin [Mass/Vol] 3.2 g/dL Normal 3.2-5.0 [facility] Comment on above: Performed By: #### L 501.2450, L500.3400 ####[facility] [address] [place], [address] ALK P 96 U/L Normal 45-117 [facility] Comment on above: Performed By: #### L 501.2450, L500.3400 ####[facility] [address] [place], [address] ALT [Catalytic activity/Vol] 27 U/L Normal 13-56 [facility] Comment on above: Performed By: #### L 501.2450, L500.3400 ####[facility] [address] [place], [address] AST [Catalytic activity/Vol] 19 U/L Normal 15-37 [facility] Comment on above: Performed By: #### L 501.2450, L500.3400 ####[facility] [address] [place], [address] Bilirubin [Mass/Vol] 2.20 mg/dL High 0.20-1.00 [facility] Comment on above: Result Comment: For patients on eltrombopag therapy, use of Dimension [place] TBIL is not recommended. Performed By: #### L 501.2450, L500.3400 ####[facility] [address] [place], [address] Bilirubin.direct [Mass/Vol] 0.52 mg/dL High 0.00-0.30 [facility] Comment on above: Performed By: #### L 501.2450, L500.3400 ####[facility] [address] [place], [address] Globulin (S) [Mass/Vol] 4.0 g/dL Normal 2.2-4.2 [facility] Comment on above: Performed By: #### L 501.2450, L500.3400 ####[facility] [address] [place], [address] T PROT 7.2 g/dL Normal 6.4-8.2 [facility] Comment on above: Performed By: #### L 501.2450, L500.3400 ####[facility] [address] [place], [address] M100.678on 04-30-2024 M100.678 Pending SARS-CoV-2 (COVID 19) Negative INFLUENZA A Negative INFLUENZA B Negative RSV PCR Negative Normal [facility] Comment on above: Performed By: #### L 400.0001, M100.678 ####[facility] [address] [place], [address] Magnesiumon 04-30-2024 Magnesium [Mass/Vol] 2.0 mg/dL Normal 1.6-2.6 [facility] Comment on above: Performed By: #### L 300.8000, L501.5200, L500.2500, L501.9520, L503.6620 ####[facility] [address] [place], [address] Magnesium measurementOrdered By: Aravind Recio on 04-30-2024 Magnesium [Mass/Vol] 2.0 mg/dL 1.6-2.6 [facility] Microscopic analysis of urin e for red blood cells (RBC)Ordered By: Aravind Recio on 04-30-2024 Urine RBC 0-5 SEEN /hpf 0-5 [facility] Mucus LM Ql (Urine sed)Order ed By: Aravind Recio on 04-30-2024 Mucus Ql (Urine sed) 0 SEEN /hpf [facility] Nitrite Test strip Ql (U)Ord ered By: Aravind Recio on 04-30-2024 Nitrite Ql (U) Negative Negative [facility] Partial Thromboplast Timeon 04-30-2024 aPTT Coag (Bld) [Time] 32.3 s Normal 24.1-36.2 [facility] Comment on above: Performed By: #### L 300.3900, L300.4310 ####[facility] [address] [place], [place], [id number] Protein Test strip Ql (U)Ord ered By: Aravind Recio on 04-30-2024 Protein Ql (U) 15 mg/dl High Negative [facility] Prothrombin Time w/INRon INR Coag (PPP) [Relative time] 1.2 {INR} Normal [facility] Comment on above: Performed By: #### L 300.3900, L300.4310 ####[facility] [address] [place], [address] PT Coag (PPP) [Time] 14.9 s Normal 11.7-14.9 [facility] Comment on above: Performed By: #### L 300.3900, L300.4310 ####[facility] [address] [place], [address] Prothrombin timeOrdered By: Aravind Recio on 04-30-2024 PT Coag (PPP) [Time] 14.9 s 11.7-14.9 [facility] RESPIRATORY PANEL MOLECULARo n 04-30-2024 RP PANEL Normal [facility] Comment on above: Performed By: #### M 100.638 ####[facility] [address] [facility] [place], [address] Respiratory pathogens DNA an d RNA panel DUSTIN+probe (Resp)Ordered By: Susan Duran on 04-30-2024 Respiratory Panel (PCR) [facility] T4 Free Directon 04-30-2024 T4 FREE DIRECT 1.90 ng/dL High 0.76-1.46 [facility] Comment on above: Performed By: #### L 506.0400 ####[facility] [address] [facility] [place], [address] TSH QnOrdered By: Norbert on 04-30-2024 Thyroid Stimulating Hormone (TSH) 4.070 uIU/mL High 0.358-3.740 [facility] Thyroid Stim Hormone (TSH)on 04-30-2024 TSH 4.070 uIU/mL High 0.358-3.740 [facility] Comment on above: Performed By: #### L 300.8000, L501.5200, L500.2500, L501.9520, L503.6620 ####[facility] [address] [facility] [place], [address] Transitional cells LM Ql (Ur ine sed)Ordered By: Aravind Recio on 04-30-2024 Urine Transitional Epithelial Cells 0-5 SEEN /hpf 0-5 [facility] Troponin IOrdered By: Susan Duran on 04-30-2024 Troponin I High Sensitivity 43 pg/mL 3.0-54.0 [facility] Comment on above: Please Note: New Destiney t Units and Gender Specific Reference Ranges. For more information see Policy Stat Procedure [place] High Sensitivity Troponin (TNIH) and attachments. Urinalysis, Completeon 04-30 AMORPHOUS 1+ Normal [facility] Comment on above: Order Comment: LISANDRA CTOR TO SPECIFY Performed By: #### L 400.0001, 8 ####[facility] [address] [place], [address] BACTERIA 2+ /hpf Normal None Seen [facility] Comment on above: Order Comment: LISANDRA CTOR TO SPECIFY Performed By: #### L 400.0001, ####[facility] [address] [place], [address] EPI,RENAL 0-5 SEEN Normal 0-5 [facility] Comment on above: Order Comment: LISANDRA CTOR TO SPECIFY Performed By: #### L 400.0001, ####[facility] [address] [place], [address] EPI,SQUAMOUS 5-10 SEEN Normal 5-10 [facility] Comment on above: Order Comment: LISANDRA CTOR TO SPECIFY Performed By: #### L 400.0001, ####[facility] [address] [place], [address] EPI,TRANSITION 0-5 SEEN Normal 0-5 [facility] Comment on above: Order Comment: LISANDRA CTOR TO SPECIFY Performed By: #### L 400.0001, ####[facility] [address] [place], [address] RBC 0-5 SEEN Normal 0-5 [facility] Comment on above: Order Comment: LISANDRA CTOR TO SPECIFY Performed By: #### L 400.0001, ####[facility] [address] [place], [address] WBC 0-5 SEEN Normal 0-5 [facility] Comment on above: Order Comment: LISANDRA CTOR TO SPECIFY Performed By: #### L 400.0001, ####[facility] [address] [place], [address] Mucus Ql (Urine sed) 0 SEEN Normal [facility] Comment on above: Order Comment: LISANDRA CTOR TO SPECIFY Performed By: #### L 400.0001, M100.678 ####[facility] [address] [place], [address] Urine blood detectionOrdered By: Aravind Recio on 04-30-2024 Urine Occult Blood Negative Negative [facility] Urine clarityOrdered By: Addy Recio on 04-30-2024 Clarity (U) Clear Clear [facility] Urine color determinationOrd ered By: Araivnd Recio on 04-30-2024 Color (U) Yellow Yellow [facility] Urine cultureOrdered By: Aut umn White on 04-30-2024 Bacteria identified Cx Nom (U) Positive Abnormal [facility] Urine leukocyte esterase det ection by dipstickOrdered By: Aravind Recio on 04-30-2024 Leukocyte esterase Test strip Ql (U) 100 /ul High Negative [facility] Urine pHOrdered By: Aravind thomas on 04-30-2024 pH (U) 7.0 [pH] 5.0 - 8.0 [facility] Urine sediment bacteria coun t by microscopy (number/high power field)Ordered By: Aravind Recio on 04-30-2024 Bacteria LM.HPF (Urine sed) [#/Area] 2 /[HPF] None Seen [facility] Urine specific gravity measu rementOrdered By: Aravind Recio on 04-30-2024 Specific gravity (U) [Rel density] 1.010 1.002-1.030 [facility] Urobilinogen Ql (U)Ordered B y: Aravind Recio on 04-30-2024 Urobilinogen (U) [Mass/Vol] 8 mg/dL High Normal [facility] White blood cell countOrdere d By: Aravind Recio on 04-30-2024 Urine WBC 0-5 SEEN /hpf 0-5 [facility] aPTT Coag (PPP) [Time]Ordere d By: Aravind Recio on 04-30-2024 aPTT Coag (Bld) [Time] 32.3 s 24.1-36.2 [facility] 04-24-2024 CNPN Telephone (FAMWS) MICHAEL MEIER ([id number]) 1940 F Date Time Provider Department 04/24[facility], we recorded [...] 03/17/2001 5 - Intolerance Comments: nausea, dizzy, "sees things" OPIOIDS-MEPERIDINE AND RELATED 02/17/2001 Comments: nausea/vomiting PENICILLIN G 02/17/2001 Comments: hives PRAVACHOL (PRAVASTATIN SODIUM) 03/09/2016 14 - Other: See Comments Comments: Leg cramps SULFA (SULFONAMIDE ANTIBIOTICS) 03/17/2001 Comments: hives VICODIN (HYDROCODONE-ACETAMINO PHE*01/08/2005 5 - Intolerance Comments: dizzy,nausea,vomiting, headache ZITHROMAX (AZITHROMYCIN) 05/20/2017 5 - Intolerance Date Reviewed: 04/10/2024 Reviewed by: Sharon Jarrett APRN.COUNTER WAITER - Fully Assessed Reason for Visit: Leg [...] adult [Z68.37] (more content not included)... Normal [facility] CNTHERAPYon 04-20-2024 CNTHERAPY OT/PT/Speech Visit (LDPT) MICHAEL MEIER ([id number]) 1940 F Date Time Provider Department 04/20/24 12:45 PM SARAH MERCHANT LDPT Date Time Provider Department Center 04/20/2024 12:45 PM [id number], CARLA LDPT [facility] Reason for Visit: Physical Therapy [503] PT Discharge [752] Primary Visit Diagnosis:Difficulty walking [R26.2] Other Visit Diagnoses:Weakness [R53.1] Imbalance [R26.89] Allergies As of Date: 04/20/2024 Noted Allergy Reaction CIPROFLOXACIN 09/05/2018 2 - Rash DEMEROL (MEPERIDINE (PF)) 02/06/2011 11 - Vomiting OPIOIDS - MORPHINE ANALOGUES 03/17/2001 5 - Intolerance Comments: nausea, dizzy, "sees things" OPIOIDS-MEPERIDINE AND RELATED 02/17/2001 Comments: nausea/vomiting PENICILLIN G 02/17/2001 Comments: imani PRAVACHOL (PRAVASTATIN SODIUM) 03/09/2016 14 - Other: See Comments Comments: Leg cramps SULFA (SULFONAMIDE ANTIBIOTICS) 03/17/2001 Comments: imani VICODIN (HYDROCODONE-ACETAMINO PHE*01/08/2005 5 - Intolerance Comments: dizzy,nausea,vomiting, headache ZITHROMAX (AZITHROMYCIN) 05/20/2017 5 - Intolerance Date Reviewed: 04/10/2024 Reviewed by: Sharon Jarrett APRN.COUNTER WAITER - Fully Assessed Prescriptions as of 07/03/2024 [...] by mouth once daily. Normal [facility] [id number] 04-18-2024 [id number] HNO ID: [id number] Author: SARAH MERCHANT PT Service: ? Author Type: Physical Therapist Type: [id number] Filed: 04/18/2024 19:04 Note Text: [facility] Physical Therapy Plan of Care Certification Patient Name: Michael Meier : 1940 [facility] #: [id number] Date: 04/18/2024 To: Geeta Cadet,* From Therapist: [...] R53.1 Weakness PLAN OF CARE UPDATE: Assessment: Micheal Meier demonstrates minimal improvement in rising from [...] for Episode of Care: created on 11/15/23 [place] in home exercise program. Patient will demonstrate [...] reducing the risk of falls. Patient Goals: "I don't know why I'm here". I guess maybe to strengthen my legs Planned Interventions, Frequency, and Duration: 2x/week (1-2x/wk), Patient to be seen for Therapeutic exercise (43445), Neuromuscular re-education (95818), Therapeutic activities (83155), Self-residential management (36681), Gait Training (87025), Patient/Family/Caregiv er Education, General Conditioning PLAN FOR NEXT VISIT: continue to progress endurance, strength, balance and gait. promote increased mobility/activity at home For further details regarding this patient refer to the Physical Therapy electronically documented visit dated 04/18/2024. Provider Attestation I have reviewed the treatment plan for Michael Meier, CC# [id number] for the period of 04/18/24 -- 05/18/24, established on 04/18/2024. Signature certifies the need for therapy services. Normal [facility] CNTHERAPYon 04-18-2024 CNTHERAPY OT/PT/Speech Visit (LDPT) MICHAEL MEIER ([id number]) 1940 F Date Time Provider Department 04/18/24 1:30 PM SARAH MERCHANT LDPT Date Time Provider Department Center 04/18/2024 1:30 PM [id number], CARLA LDPT [facility] Reason for Visit: PT Progress Note [1596] Primary Visit Diagnosis:Difficulty walking [R26.2] Other Visit Diagnoses:Imbalance [R26.89] Weakness [R53.1] Allergies As of Date: 04/18/2024 Noted Allergy Reaction CIPROFLOXACIN 09/05/2018 2 - Rash DEMEROL (MEPERIDINE (PF)) 02/06/2011 11 - Vomiting OPIOIDS - MORPHINE ANALOGUES 03/17/2001 5 - Intolerance Comments: nausea, dizzy, "sees things" OPIOIDS-MEPERIDINE AND RELATED 02/17/2001 Comments: nausea/vomiting PENICILLIN G 02/17/2001 Comments: imani PRAVACHOL (PRAVASTATIN SODIUM) 03/09/2016 14 - Other: See Comments Comments: Leg cramps SULFA (SULFONAMIDE ANTIBIOTICS) 03/17/2001 Comments: imani VICODIN (HYDROCODONE-ACETAMINO PHE*01/08/2005 5 - Intolerance Comments: dizzy,nausea,vomiting, headache ZITHROMAX (AZITHROMYCIN) 05/20/2017 5 - Intolerance Date Reviewed: 04/10/2024 Reviewed by: Sharon Jarrett APRN.COUNTER WAITER - Fully Assessed Prescriptions as of 05/08/2024 [...] once daily. Letter Text Normal [facility] CNOVon 04-10-2024 CN Office Visit (GENSWS ) MICHAEL MEIER ([id number]) 1940 F Date Time Provider Department 04/10/24 4:00 PM SHARON JARRETT During your visit today, we recorded the following information about you: Sharon Jarrett APRN.CNP 04/10/2024 4:04 PM Signed FOLLOW UP VISIT - ENDOSCOPY Michael Deras Hardeep 1940 [id number] REFERRING PHYSICIAN: No referring provider defined for [...] as needed for worsening/no improvement. Sharon Jarrett APRN.CNP Allergies As of Date: 04/10/2024 Noted Allergy Reaction CIPROFLOXACIN 09/05/2018 2 - Rash DEMEROL (MEPERIDINE (PF)) 02/06/2011 11 - Vomiting OPIOIDS - MORPHINE ANALOGUES 03/17/2001 5 - Intolerance Comments: nausea, dizzy, "sees things" OPIOIDS-MEPERIDINE AND RELATED 02/17/2001 Comments: nausea/vomiting PENICILLIN G 02/17/2001 Comments: imani PRAVACHOL (PRAVASTATIN SODIUM) 03/09/2016 14 - Other: See Comments Comments: Leg cramps SULFA (SULFONAMIDE ANTIBIOTICS) 03/17/2001 Comments: imani VICODIN (HYDROCODONE-ACETAMINO PHE*01/08/2005 5 - Intolerance Comments: dizzy,nausea,vomiting, headache ZITHROMAX (AZITHROMYCIN) 05/20/2017 5 - Intolerance Date Reviewed: 04/10/2024 Reviewed by: Sharon Jarrett APRN.COUNTER WAITER - Fully Assessed Reason for Visit: Follow [...] rosuvastatin (CR (more content not included)... Normal [facility] ANES POSTPROC EVALon 024 ANES POSTPROC EVAL HNO ID: [id number] Author: YVONNE MANLEY MD Service: Anesthesiology Author Type: Anesthesiologist Type: Anesthesia Postprocedure Evaluation Filed: 03/31/2024 11:44 Note Text: POST ANESTHESIA EVALUATION NOTE : 1940 Procedure Summary Date: 03/31/24 Room / Location: [facility] Endoscopy Anesthesia Start: 1053 Anesthesia Stop: 1115 Procedure: EGD DIAGNOSTIC Diagnosis: Epigastric abdominal pain Pulmonary hypertension (HCC) (Epigastric abdominal pain) Scheduled Providers: Raymundo De León MD; Yvonne Manley MD; Kelsea Mo APRN.ANGLE DOZER OPERATOR Responsible Provider: Yvonne Manley MD Anesthesia Type: [...] March 31, 2024 TIME: 11:44 AM CSN: [id number] Normal [facility] ANES PRE-OPon 03-31-2024 ANES PRE-OP HNO ID: [id number] Author: YVONNE MANLEY MD Service: Anesthesiology Author Type: Anesthesiologist Type: Anesthesia Preprocedure Evaluation Filed: 03/31/2024 10:48 Note Text: ANESTHESIOLOGY DAY OF SURGERY NOTE : 1940 Procedure Information Date/Time: 03/31/24 1115 Scheduled providers: Raymundo De León MD; Yvonne Manley MD; Kelsea Mo APRN.ANGLE DOZER OPERATOR Procedure: EGD DIAGNOSTIC Location: [facility] Endoscopy Estimated body mass index is 38.27 kg/m? as calculated from the following: Height as of 03/27/24: 165.1 cm (5' 5"). Weight as of 03/27/24: 104.3 kg (230 lb). Most recent hematocrit and potassium results: Hematocrit 43.0 11/25/2023 Potassium 3.8 11/25/2023 Relevant Problems ANESTHESIA (+) JOSE on CPAP CARDIO (+) A-fib (HCC) (+) 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 (+) WELCH (dyspnea on exertion) [...] and consent discussed: yes. Patient / Responsible Democrat agrees to proceed: yes Patient / Surrogate [...] Surgery/Procedure. SIGNATURE (more content not included)... Normal [facility] EGD Study observation Carline goode 03-31-2024 [facility] Gastrointestinal Endoscopy Patient Name: Michael Meier Procedure Date: 03/31/2024 10:20 AM Date of : 1940 Admit Type: Outpatient Age: 83 Room: [facility] Gender: Female Note Status: Finalized Attending MD: Raymundo De León MD, [id number] Procedure: Upper GI endoscopy Indications: Epigastric abdominal [...] be scheduled. Procedure Code(s): --- Professional --- 92372, Esophagogastroduodenos copy, flexible, transoral; with biopsy, single or multiple Diagnosis Code(s): --- Professional --- K44.9, Diaphragmatic hernia without obstruction or gangrene K29.70, Gastritis, unspecified, without bleeding R10.13, Epigastric pain (more content not included)... [employer] [facility] Radiology Study observation (narrative) [facility] HISTORY PHYSICALon HISTORY PHYSICAL HNO ID: [id number] Author: RAYMUNDO DE LEÓN MD Service: General Surgery Author Type: Physician Type: H&P Filed: 03/31/2024 10:47 Note Text: HISTORY AND PHYSICAL Michael Meier : 1940 REFERRING PHYSICIAN: Michael Puga [address] [facility] [address] CHIEF COMPLAINT: Patient presents with: Consult: EGD [...] was 01/[address] De León at [facility] Sedation:Midazolam 4 mg IV, Fentanyl 100 [...] 11/15/2009 Knee replacement, (more content not included)... [facility] SURGICAL PATHOLOGYon 024 CASE REPORT [facility] Comment on above: Order Comment: Speci men Type: TISSUE SPECIMEN Ordering Facility: [facility] Address: [address] [place] [address] [place], [place] [address] Result Comment: Surg ical Pathology Report Case: [id number] Authorizing Provider: Raymundo De León MD Collected: 03/31/2024 11:01 AM Ordering Location: [facility] Endoscopy Received: 03/31/2024 12:34 PM Pathologist: Tanna Nathan MD Specimens: A) - Small Bowel, Duodenum, Biopsy B) - Stomach, Biopsy, r/o H. Pylori C) - Esophagus, Distal, Biopsy D) - Esophagus, Mid, Biopsy Performed By: #### S #### [facility] CLIA [id number] [address] [place] [address] STATES [place] FINAL DIAGNOSIS Normal [facility] Comment on above: Order Comment: Speci men Type: TISSUE SPECIMEN Ordering Facility: [facility] Address: [address] [place] [address] Result Comment: A. S mall bowel, duodenum, [...] AEB/kr 04/04/2024 Performed By: #### S #### [facility] CLIA [id number] [address] [place] [address] STATES OF [place] FINAL PERFORMING LAB Normal [facility] Comment on above: Order Comment: Speci men Type: TISSUE SPECIMEN Ordering Facility: [facility] Address: [address] [place] [address] Result Comment: Diag nostic interpretation performed at [place] [address] CLIA# [id number] Cvor Nurse: Todd Fields M.D. Performed By: #### S #### [facility] CLIA [id number] [address] [place] [address] [place] GROSS DESCRIPTION Normal [facility] Comment on above: Order Comment: Speci men Type: TISSUE SPECIMEN Ordering Facility: [facility] Address: [address] [place] [address] Result Comment: A. S mall Bowel, Duodenum, [...] 0.2 cm. Totally submitted in one cassette. [facility] March 31, 2024 3:19 PM Gross examination performed at [facility], [address] [place] [address] Performed By: #### S #### [facility] CLIA [id number] [address] [place] [address] [place] [address] [place] [facility] Upper GI endoscopy -29-2 024 Upper GI endoscopy [facility] Gastrointestinal Endoscopy Patient Name: Michael Meier Procedure Date: 03/31/2024 10:20 AM Date of : 1940 Admit Type: Outpatient Age: 83 Room: [facility] Gender: Female Note Status: Finalized Attending MD: Raymundo De León MD, [id number] Procedure: Upper GI endoscopy Indications: Epigastric abdominal [...] be scheduled. Procedure Code(s): --- Professional --- 62957, Esophagogastroduodenos copy, flexible, transoral; with biopsy, single or multiple Diagnosis Code(s): --- Professional --- K44.9, Diaphragmatic hernia without obstruction or gangrene K29.70, Gastritis, unspecified, without bleeding R10.13, Epigastric pain R12, Heartburn CPT copyright 2020 [employer]. All rights reserved. The codes documented in this report are preliminary and upon umbrella finisher review may be revised to meet current compliance requirements. Attending Participation: I personally performed the entire procedure. Scope In: 11:00:34 AM Scope Out: 11:04:24 AM MD Raymundo Juarez MD 03/31/2024 11:08:03 AM This report has been signed electronically by Raymundo De León MD Number of Addenda: 0 Note Initiated On: 03/31/2024 10:20 AM Estimated Blood Loss: Estimated blood loss was minimal. Normal [facility] HISTORY PHYSICALon HISTORY PHYSICAL HNO ID: [id number] Author: MARY FOSTER APRN.COUNTER WAITER Service: ? Author Type: Nurse Practitioner Type: [...] Assessment: c/w statin 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 Assessment: s/p 10/2021 ICD placement, [...] large neck Non-male patient STOP-Bang Score: 2 [id number] Score: Age: >=75 Sex: female CHF history: No Hypertension history: Yes Stroke/TIA/thromboembo lism history: Yes Vascular disease history: No Diabetes history: No [id number] Score: 6 ARISCAT Score: Age: >80 Preoperative [...] COVID-19 Immunization Status Overdue - Covid-19 Vaccine (2023- season) Overdue since 01/02/2024 10/14/2023 Postponed until 10/13/2024 by Marisol Cano LPN (Declined at this ti (more content not included)... Normal [facility] CNTHERAPYon 03-23-2024 CNTHERAPY OT/PT/Speech Visit (LDPT) MICHAEL MEIER ([id number]) 1940 F Date Time Provider Department 03/23/24 12:45 PM SARAH MERCHANT Date Time Provider Department Center 03/23/2024 12:45 PM [id number], CARLA LDPT [facility] Reason for Visit: Physical Therapy [503] Primary Visit Diagnosis:Difficulty walking [R26.2] Other Visit Diagnoses:Imbalance [R26.89] Weakness [R53.1] Allergies As of Date: 03/23/2024 Noted Allergy Reaction CIPROFLOXACIN 09/05/2018 2 - Rash DEMEROL (MEPERIDINE (PF)) 02/06/2011 11 - Vomiting OPIOIDS - MORPHINE ANALOGUES 03/17/2001 5 - Intolerance Comments: nausea, dizzy, "sees things" OPIOIDS-MEPERIDINE AND RELATED 02/17/2001 Comments: nausea/vomiting PENICILLIN [...] by mouth once daily. Normal [facility] CNTHERAPYon 03-20-2024 CNTHERAPY OT/PT/Speech Visit (LDPT) MICHAEL MEIER ([id number]) 1940 F Date Time Provider Department 03/20/24 2:15 PM SARAH MERCHANT LDPT Date Time Provider Department Center 03/20/2024 2:15 PM [id number], CARLA LDPT [facility] Reason for Visit: Physical Therapy [503] Primary Visit Diagnosis:Difficulty walking [R26.2] Other Visit Diagnoses:Imbalance [R26.89] Weakness [R53.1] Allergies As of Date: 03/20/2024 Noted Allergy Reaction CIPROFLOXACIN 09/05/2018 2 - Rash DEMEROL (MEPERIDINE (PF)) 02/06/2011 11 - Vomiting OPIOIDS - MORPHINE ANALOGUES 03/17/2001 5 - Intolerance Comments: nausea, dizzy, "sees things" OPIOIDS-MEPERIDINE AND RELATED 02/17/2001 Comments: nausea/vomiting PENICILLIN [...] by mouth once daily. Normal [facility] CNTHERAPYon 03-16-2024 CNTHERAPY OT/PT/Speech Visit (LDPT) MICHAEL MEIER ([id number]) 1940 F Date Time Provider Department 03/16/24 12:45 PM SARAH MERCHANT LDPT Date Time Provider Department Center 03/16/2024 12:45 PM [id number], CARLA LDPT [facility] Reason for Visit: Physical Therapy [503] Primary Visit Diagnosis:Difficulty walking [R26.2] Other Visit Diagnoses:Imbalance [R26.89] Weakness [R53.1] Allergies As of Date: 03/16/2024 Noted Allergy Reaction CIPROFLOXACIN 09/05/2018 2 - Rash DEMEROL (MEPERIDINE (PF)) 02/06/2011 11 - Vomiting OPIOIDS - MORPHINE ANALOGUES 03/17/2001 5 - Intolerance Comments: nausea, dizzy, "sees things" OPIOIDS-MEPERIDINE AND RELATED 02/17/2001 Comments: nausea/vomiting PENICILLIN [...] by mouth once daily. Normal [facility] CNTHERAPYon 03-14-2024 CNTHERAPY OT/PT/Speech Visit (LDPT) MICHAEL MEIER ([id number]) 1940 F Date Time Provider Department 03/14/24 10:00 AM JOY SUN Date Time Provider Department [place] 03/14/2024 10:00 AM [id number] SUN [facility] Reason for Visit: Physical Therapy [503] Primary Visit Diagnosis:Difficulty walking [R26.2] Other Visit Diagnoses:Imbalance [R26.89] Weakness [R53.1] Allergies As of Date: 03/14/2024 Noted Allergy Reaction CIPROFLOXACIN 09/05/2018 2 - Rash DEMEROL (MEPERIDINE (PF)) 02/06/2011 11 - Vomiting OPIOIDS - MORPHINE ANALOGUES 03/17/2001 5 - Intolerance Comments: nausea, dizzy, "sees things" OPIOIDS-MEPERIDINE AND RELATED 02/17/2001 Comments: nausea/vomiting PENICILLIN [...] by mouth once daily. Normal [facility] CNOVon 03-13-2024 [facility] Office Visit (GENSWS ) MICHAEL MEIER ([id number]) 1940 F Date Time Provider Department 03/13/24 2:30 PM SHARON JARRETT During your visit today, we recorded the following information about you: Temperature Pulse Blood pressure Weight 97.5 degrees 71/minute 184/75 105 kg Height 1.651 m Sharon Jarrett APRN.CNP 03/13/2024 2:47 PM Signed HISTORY AND PHYSICAL Michael Meier : 1940 REFERRING PHYSICIAN: Michael Puga [address] [facility] [address] CHIEF COMPLAINT: Patient presents with: Consult: EGD [...] was 01/[address] De León at [facility] Sedation:Midazolam 4 mg IV, Fentanyl 100 [...] [Azithromycin] PAST MEDICAL HISTORY Diagnosis Date A-fib ([facility]) Allergic rhinitis, cause unspecified Arrhythmia Arthritis Greater trochanteric bursitis of left hip Melanoma of skin, site unspecified 2004 back Osteoarthritis of left hip Other and unspecified hyperlipidemia Pulmonary hypertension (HCC) Situational mixed anxiety and depressive disorder Sleep apnea Stroke (HCC) Unspecified essential hypertension Unspecified gastritis and gastroduodenitis PAST SURGICAL HISTORY Procedure Laterality Date ABDOMINAL SURGERY HX APPENDECTO (more content not included)... Normal [facility] Priscila 03-13-2024 CNPN Telephone ([employer]) MICHAEL MEIER ([id number]) 1940 F Date Time Provider Department 03/13/24 RAYMUNDO DE LEÓN [employer] During your visit today, we recorded the following information about you: Joshua Mcdowell 03/13/2024 2:44 PM Signed 03-31-2024 EGD Elizabeth Mcdowell Allergies As of Date: 03/13/2024 Noted Allergy Reaction CIPROFLOXACIN 09/05/2018 2 - Rash DEMEROL (MEPERIDINE (PF)) 02/06/2011 11 - Vomiting OPIOIDS - MORPHINE ANALOGUES 03/17/2001 5 - Intolerance Comments: nausea, dizzy, "sees things" OPIOIDS-MEPERIDINE AND RELATED 02/17/2001 Comments: nausea/vomiting PENICILLIN G 02/17/2001 Comments: imani PRAVACHOL (PRAVASTATIN SODIUM) 03/09/2016 14 - Other: See Comments Comments: Leg cramps SULFA (SULFONAMIDE ANTIBIOTICS) 03/17/2001 Comments: imani VICODIN (HYDROCODONE-ACETAMINO PHE*01/08/2005 5 - Intolerance Comments: dizzy,nausea,vomiting, headache ZITHROMAX (AZITHROMYCIN) 05/20/2017 5 - Intolerance Date Reviewed: 03/13/2024 Reviewed by: Portia Camarillo RN - Fully Assessed Reason for Visit: 03-31-2024 EGHarley hay [Other] Prescriptions as of 04/03/2024 - [...] [E66.811] 03/07/2018 (more content not included)... Normal [facility] CNTHERAPYon 03-02-2024 CNTHERAPY OT/PT/Speech Visit (LDPT) MICHAEL MEIER ([id number]) 1940 F Date Time Provider Department 03/02/24 12:45 PM SARAH MERCHANT LDFRANTZ Date Time Provider Department [place] 03/02/2024 12:45 PM [id number], CARLA LDPT [facility] Reason for Visit: Physical Therapy [503] Primary Visit Diagnosis:Difficulty walking [R26.2] Other Visit Diagnoses:Imbalance [R26.89] Weakness [R53.1] Allergies As of Date: 03/02/2024 Noted Allergy Reaction CIPROFLOXACIN 09/05/2018 2 - Rash DEMEROL (MEPERIDINE (PF)) 02/06/2011 11 - Vomiting OPIOIDS - MORPHINE ANALOGUES 03/17/2001 5 - Intolerance Comments: nausea, dizzy, "sees things" OPIOIDS-MEPERIDINE AND RELATED 02/17/2001 Comments: nausea/vomiting PENICILLIN [...] by mouth once daily. Normal [facility] CNTHERAPYon 02-17-2024 CNTHERAPY OT/PT/Speech Visit (LDPT) MICHAEL MEIER ([id number]) 1940 F Date Time Provider Department 02/17/24 3:45 PM SARAH MERCHANT LDPT Date Time Provider Department Center 02/17/2024 3:45 PM [id number], CARLA LDPT [facility] Reason for Visit: PT Progress Note [1596] Primary Visit Diagnosis:Difficulty walking [R26.2] Other Visit Diagnoses:Imbalance [R26.89] Weakness [R53.1] Allergies As of Date: 02/17/2024 Noted Allergy Reaction CIPROFLOXACIN 09/05/2018 2 - Rash DEMEROL (MEPERIDINE (PF)) 02/06/2011 11 - Vomiting OPIOIDS - MORPHINE ANALOGUES 03/17/2001 5 - Intolerance Comments: nausea, dizzy, "sees things" OPIOIDS-MEPERIDINE AND RELATED 02/17/2001 Comments: nausea/vomiting PENICILLIN [...] by mouth once daily. Normal [facility] CNTHERAPYon 02-14-2024 CNTHERAPY OT/PT/Speech Visit (LDPT) HARDEEPMICHAEL ([id number]) 1940 F Date Time Provider Department 02/14/24 1:30 PM WILFRED MCCLELLAN Date Time Provider Department Center 02/14/2024 1:30 PM [id number] MCCLELLAN [facility] Reason for Visit: Physical Therapy [503] Primary Visit Diagnosis:Weakness [R53.1] Other Visit Diagnosis:Imbalance [R26.89] Allergies As of Date: 02/14/2024 Noted Allergy Reaction CIPROFLOXACIN 09/05/2018 2 - Rash DEMEROL (MEPERIDINE (PF)) 02/06/2011 11 - Vomiting OPIOIDS - MORPHINE ANALOGUES 03/17/2001 5 - Intolerance Comments: nausea, dizzy, "sees things" OPIOIDS-MEPERIDINE AND RELATED 02/17/2001 Comments: nausea/vomiting PENICILLIN [...] by mouth once daily. Normal [facility] CNTHERAPYon 02-10-2024 CNTHERAPY OT/PT/Speech Visit (LDPT) MICHAEL MEIER ([id number]) 1940 F Date Time Provider Department 02/10/24 12:45 PM SARAH MERCHANT LDPT Date Time Provider Department Center 02/10/2024 12:45 PM [id number], CARLA LDPT [facility] Reason for Visit: Physical Therapy [503] Primary Visit Diagnosis:Weakness [R53.1] Other Visit Diagnoses:Imbalance [R26.89] Difficulty walking [R26.2] Allergies As of Date: 02/10/2024 Noted Allergy Reaction CIPROFLOXACIN 09/05/2018 2 - Rash DEMEROL (MEPERIDINE (PF)) 02/06/2011 11 - Vomiting OPIOIDS - MORPHINE ANALOGUES 03/17/2001 5 - Intolerance Comments: nausea, dizzy, "sees things" OPIOIDS-MEPERIDINE AND RELATED 02/17/2001 Comments: nausea/vomiting PENICILLIN [...] by mouth once daily. Normal [facility] CNTHERAPYon 02-07-2024 CNTHERAPY OT/PT/Speech Visit (LDPT) MICHAEL MEIER ([id number]) 1940 F Date Time Provider Department 02/07/24 2:15 PM SARAH MERCHANT LDPT Date Time Provider Department Center 02/07/2024 2:15 PM [id number], CARLA LDPT [facility] Reason for Visit: Physical Therapy [503] Primary Visit Diagnosis:Weakness [R53.1] Other Visit Diagnoses:Imbalance [R26.89] Difficulty walking [R26.2] Allergies As of Date: 02/07/2024 Noted Allergy Reaction CIPROFLOXACIN 09/05/2018 2 - Rash DEMEROL (MEPERIDINE (PF)) 02/06/2011 11 - Vomiting OPIOIDS - MORPHINE ANALOGUES 03/17/2001 5 - Intolerance Comments: nausea, dizzy, "sees things" OPIOIDS-MEPERIDINE AND RELATED 02/17/2001 Comments: nausea/vomiting PENICILLIN [...] by mouth once daily. Normal [facility] XR CHEST 2V FRONTAL/LATon [facility] EGD DIAGNOSTICon 01-08-2022 [facility] GLUCOSE, BLOOD (POC)on 10-20 Glucose [Mass/Vol] 116 mg/dL Abnormal 74 - 99 mg/dL [facility] UA DIP, URINE (POC)on 2021 BILIRUBIN UA (POCT) Negative Negative [facility] CLARITY UA (POCT) Clear [facility] COLOR UA (POCT) [place] [facility] GLUCOSE UA (POCT) 100 mg/dL Abnormal Negative mg/dL [facility] HEMOGLOBIN/BLOOD UA (POCT) Large Abnormal Negative [facility] KETONE UA (POCT) Trace Negative mg/dL [facility] LEUKOCYTES UA (POCT) Large [facility]normal [facility] NITRITE UA (POCT) Positive Abnormal Negative [facility] PH UA (POCT) 5.0 4.5 - 8.0 [facility] Protein Ql (U) 100 mg/dL Abnormal Negative mg/dL [facility] SPECIFIC GRAVITY UA (POCT) <=1.005 Abnormal 1.005 - 1.030 [facility] UROBILINOGEN UA (POCT) 4.0 E.U./dL Abnormal Eli l E.U./dL [facility] Basophil percentageon 2021 Chloride [Moles/Vol] 100 mmol/L 98-107 [facility] Work Phone: Glucose [Mass/Vol] 92 mg/dL 74-106 [facility] Work Phone: Potassium [Moles/Vol] 3.8 mmol/L 3.5-5.1 [facility] Work Phone: Comment on above: Slight Hemolysis, Re sult may be falsely increased. Sodium [Moles/Vol] 135 mmol/L 136-145 [facility] Work Phone: Laboratory - Chemistry and C hemistry - challengeon 09-10-2021 CO2 [Moles/Vol] 30.0 mmol/L 21.0-32.0 [facility] Work Phone: Urea nitrogen/Creatinine [Mass ratio] 19.7 mg/mg 10-20 [facility] Work Phone: No Panel Informationon 09-10 Estimated GFR (MDRD) Amer 82 mL/min >60 [facility] Work Phone: Comment on above: GFR Calc Estimated GFR (MDRD) Non-Af Amer 67 mL/min >60 [facility] Work Phone: Comment on above: Non- GFR Calc Serum or plasma calcium julee urement (mass/volume)on 09-10-2021 Calcium [Mass/Vol] 8.8 mg/dL 8.5-10.1 [facility] Work Phone: Serum or plasma creatinine m easurement (mass/volume)on 09-10-2021 Creatinine [Mass/Vol] 0.86 mg/dL 0.55-1.02 [facility] Work Phone: Comment on above: The validity of the calculated GFR & GFRAA in patients over 70 years has not been determined. Clinical correlation is essential. Serum or plasma urea nitroge n measurement (mass/volume)on 09-10-2021 Urea nitrogen [Mass/Vol] 17 mg/dL 7-18 [facility] Work Phone: Thin prep Papanicolaou smear with manual screeningon 09-10-2021 Thin prep Papanicolaou smear with manual screening 5 5-15 [facility] Work Phone: Basophil percentageon 2021 Basophil percentage 0 SEEN /hpf [facility] Work Phone: Chloride [Moles/Vol] 103 mmol/L 98-107 [facility] Work Phone: Glucose [Mass/Vol] 88 mg/dL 74-106 [facility] Work Phone: Potassium [Moles/Vol] 3.7 mmol/L 3.5-5.1 [facility] Work Phone: Sodium [Moles/Vol] 138 mmol/L 136-145 [facility] Work Phone: WBC (Bld) [#/Vol] 7.3 10*3/uL 4.4-11.0 [facility] Work Phone: Bilirubin Test strip Ql (U)o n 06-02-2021 Bilirubin Ql (U) Negative Negative [facility] Work Phone: Blood erythrocytes count (nu mber/volume)on 06-02-2021 RBC (Bld) [#/Vol] 4.57 10*6/uL 4.2-5.4 [facility] Work Phone: Blood hemoglobin measurement (mass/volume)on 06-02-2021 Hemoglobin (Bld) [Mass/Vol] 13.5 g/dL 12.0-15.0 [facility] Work Phone: Blood platelet mean volumeon 06-02-2021 Platelet mean volume (Bld) [Entitic vol] 10.3 fL 6.2-12.0 [facility] Work Phone: Determination of erythrocyte mean corpuscular volume (MCV)on 06-02-2021 MCV (RBC) [Entitic vol] 88.8 fL 81-99 [facility] Work Phone: Hematocrit Auto (Bld) [Volum e fraction]on 06-02-2021 Hematocrit (Bld) [Volume fraction] 40.6 % 37-47 [facility] Work Phone: INR in Blood by Coagulation assayon 06-02-2021 INR Coag (Bld) [Relative time] 1.1 {INR} [facility] Work Phone: Ketones Test strip Ql (U)on 06-02-2021 Ketones Ql (U) Negative Negative [facility] Work Phone: Laboratory - Chemistry and C hemistry - challengeon 06-02-2021 CO2 [Moles/Vol] 30.0 mmol/L 21.0-32.0 [facility] Work Phone: Urea nitrogen/Creatinine [Mass ratio] 18.6 mg/mg 10-20 [facility] Work Phone: Laboratory - Coagulationon 0 06-02-2021 PT Coag (PPP) [Time] 13.1 s 11.7-14.9 [facility] Work Phone: Laboratory - Hematology and Cell countson 06-02-2021 Erythrocyte distribution width (RBC) [Entitic vol] 45.3 fL 35.1-43.9 [facility] Work Phone: Erythrocyte distribution width (RBC) [Ratio] 13.9 % 11.6-14.6 [facility] Work Phone: MCH (RBC) [Entitic mass] 29.5 pg 27.0-32.0 [facility] Work Phone: MCHC Auto (RBC) [Mass/Vol]on 06-02-2021 MCHC (RBC) [Mass/Vol] 33.3 g/dL 32-36 [facility] Work Phone: Mucus LM Ql (Urine sed)on Mucus Ql (Urine sed) 0 SEEN /hpf [facility] Work Phone: Nitrite Test strip Ql (U)on 06-02-2021 Nitrite Ql (U) Negative Negative [facility] Work Phone: No Panel Informationon 06-02 Estimated GFR (MDRD) Amer 104 mL/min >60 [facility] Work Phone: Comment on above: GFR Calc Estimated GFR (MDRD) Non-Af Amer 86 mL/min >60 [facility] Work Phone: Comment on above: Non- GFR Calc Thyroid Stimulating Hormone (TSH) 1.91 uIU/mL 0.358-3.74 [facility] Work Phone: Platelets bldon 06-02-2021 Platelets (Bld) [#/Vol] 240 10*3/uL 150-450 [facility] Work Phone: Protein Test strip Ql (U)on 06-02-2021 Protein Ql (U) 15 mg/dl Negative [facility] Work Phone: Serum or plasma calcium julee urement (mass/volume)on 06-02-2021 Calcium [Mass/Vol] 8.6 mg/dL 8.5-10.1 [facility] Work Phone: Serum or plasma creatinine m easurement (mass/volume)on 06-02-2021 Creatinine [Mass/Vol] 0.70 mg/dL 0.55-1.02 [facility] Work Phone: Comment on above: The validity of the calculated GFR & GFRAA in patients over 70 years has not been determined. Clinical correlation is essential. Serum or plasma urea nitroge n measurement (mass/volume)on 06-02-2021 Urea nitrogen [Mass/Vol] 13 mg/dL 7-18 [facility] Work Phone: Squamous epithelial cells de tection in urine sediment by light microscopyon 06-02-2021 Epithelial cells.squamous LM Ql (Urine sed) 0 SEEN /hpf [facility] Work Phone: Thin prep Papanicolaou smear with manual screeningon 06-02-2021 Thin prep Papanicolaou smear with manual screening 5 5-15 [facility] Work Phone: Urine blood detectionon - RBC Ql (U) Negative Negative [facility] Work Phone: RBC Ql (U) 0 SEEN /hpf [facility] Work Phone: Urine clarityon 06-02-2021 Clarity (U) Sl. Cloudy Clear [facility] Work Phone: Urine color determinationon 06-02-2021 Color (U) Yellow Yellow [facility] Work Phone: Urine glucose detectionon Glucose Ql (U) Normal mg/dl Normal [facility] Work Phone: Urine leukocyte esterase det ection by dipstickon 06-02-2021 Leukocyte esterase Test strip Ql (U) 25 /ul Negative [facility] Work Phone: Urine pHon 06-02-2021 pH (U) 6.5 [pH] [facility] Work Phone: Urine sediment bacteria coun t by microscopy (number/high power field)on 06-02-2021 Bacteria LM.HPF (Urine sed) [#/Area] 1 /[HPF] None Seen [facility] Work Phone: Urine specific gravity measu rementon 06-02-2021 Specific gravity (U) [Rel density] 1.015 [facility] Work Phone: Urobilinogen Auto test strip Ql (U)on 06-02-2021 Urobilinogen Ql (U) Normal mg/dl Normal [facility] Work Phone: BASIC METABOLIC PANELon 08-2 Anion gap [Moles/Vol] 8 mmol/L Low 10 - 20 [facility] Comment on above: Performed By: #### B MP #### [address] [address] Calcium [Mass/Vol] 8.4 mg/dL Low 8.6 - 10.3 [facility] Comment on above: Performed By: #### B MP #### [address] [address] Chloride [Moles/Vol] 104 mmol/L Normal 98 - 107 [facility] Comment on above: Performed By: #### B MP #### [address] [address] Creatinine [Mass/Vol] 0.50 mg/dL Normal 0.50 - 1.05 [facility] Comment on above: Performed By: #### B MP #### [address] [address] GFR- AM. >60 Normal >60 [facility] Comment on above: Result Comment: CALC ULATIONS OF ESTIMATED GFR ARE PERFORMED USING THE MDRD STUDY EQUATION FOR THE IDMS-TRACEABLE CREATININE METHODS. CLIN CHEM 2007;53:766-72 Performed By: #### B MP #### [address] [address] GFR-NON AM. >60 Normal >60 [facility] Comment on above: Performed By: #### B MP #### [address] [address] Glucose [Mass/Vol] 90 mg/dL Normal 74 - 99 [facility] Comment on above: Performed By: #### B MP #### [address] [address] HCO3 (Bld) [Moles/Vol] 31 mmol/L Normal 21 - 32 [facility] Comment on above: Performed By: #### B MP #### [address] [address] Potassium [Moles/Vol] 3.8 mmol/L Normal 3.5 - 5.3 [facility] Comment on above: Performed By: #### B MP #### [place] [id number] Sodium [Moles/Vol] 139 mmol/L Normal 136 - 145 [facility] Comment on above: Performed By: #### B MP #### [place] [id number] Urea nitrogen [Mass/Vol] 10 mg/dL Normal 6 - 23 [facility] Comment on above: Performed By: #### B MP #### [place] [id number] BNPon 12-21-2020 Natriuretic peptide B (Bld) [Mass/Vol] 212 pg/mL High 0 - 99 [facility] Comment on above: Result Comment: . <1 00 pg/mL - Heart failure unlikely 100-299 pg/mL - Intermediate probability of acute heart . failure exacerbation. Correlate with clinical . context and patient history. >=300 pg/mL - Heart Failure likely. Correlate with clinical . context and patient history. BNP testing is performed using different testing methodology at [facility] than at other [facility]. Direct result comparisons should only be made within the same method. Performed By: #### B NP2 #### [place] [id number] CBC AND DIFFERENTIALon 12-21 Basophils (Bld) [#/Vol] 0.00 10*3/uL Normal 0.00 - 0.1 0 [facility] Comment on above: Performed By: #### C BCDF #### [address] [address] Basophils/100 WBC (Bld) 0.9 % Normal 0.0 - 2.0 [facility] Comment on above: Performed By: #### C BCDF #### [address] [address] Eosinophils (Bld) [#/Vol] 0.10 10*3/uL Normal 0.00 - 0.40 [facility] Comment on above: Performed By: #### C BCDF #### [address] [address] Eosinophils/100 WBC (Bld) 2.5 % Normal 0.0 - 6.0 [facility] Comment on above: Performed By: #### C BCDF #### [address] [address] Erythrocyte distribution width (RBC) [Ratio] 15.3 % High 11.5 - 14.5 [facility] Comment on above: Performed By: #### C BCDF #### [address] [address] Hematocrit (Bld) [Volume fraction] 38.9 % Normal 36.0 - 46.0 [facility] Comment on above: Performed By: #### C BCDF #### [address] [address] Hemoglobin (Bld) [Mass/Vol] 12.8 g/dL Normal 12.0 - 16.0 [facility] Comment on above: Performed By: #### C BCDF #### [address] [address] Lymphocytes (Bld) [#/Vol] 0.70 10*3/uL Low 0.80 - 3.00 [facility] Comment on above: Performed By: #### C BCDF #### [address] [address] Lymphocytes/100 WBC (Bld) 13.3 % Normal 13.0 - 44.0 [facility] Comment on above: Performed By: #### C BCDF #### [address] [address] MCHC (RBC) [Mass/Vol] 33.0 g/dL Normal 32.0 - 36.0 [facility] Comment on above: Performed By: #### C BCDF #### [address] [address] MCV (RBC) [Entitic vol] 88 fL Normal 80 - 100 [facility] Comment on above: Performed By: #### C BCDF #### [address] [address] Monocytes (Bld) [#/Vol] 0.60 10*3/uL Normal 0.05 - 0.8 0 [facility] Comment on above: Performed By: #### C BCDF #### [address] [address] Monocytes/100 WBC (Bld) 11.5 % Normal 2.0 - 10.0 [facility] Comment on above: Performed By: #### C BCDF #### [address] [address] Neutrophils (Bld) [#/Vol] 3.80 10*3/uL Normal 1.60 - 5.50 [facility] Comment on above: Result Comment: Perc ent differential counts (%) should be interpreted in the context of the absolute cell counts (cells/L). Performed By: #### C BCDF #### [address] [address] Neutrophils/100 WBC (Bld) 71.8 % Normal 40.0 - 80.0 [facility] Comment on above: Performed By: #### C BCDF #### [address] [address] NUCLEATED RBC 0.2 /100 WBC Normal [facility] Comment on above: Performed By: #### C BCDF #### [address] [address] Platelets (Bld) [#/Vol] 160 10*3/uL Normal 150 - 450 [facility] Comment on above: Performed By: #### C BCDF #### [address] [address] RBC 4.44 x10E12/L Normal 4.00 - 5.20 [facility] Comment on above: Performed By: #### C BCDF #### [address] [address] WBC (Bld) [#/Vol] 5.3 10*3/uL Normal 4.4 - 11.3 [facility] Comment on above: Performed By: #### C BCDF #### [place] [address] CHEST 1 VIEWon 12-21-2020 CHEST 1 VIEW Patient Name: MICHAEL MEIER STUDY: CHEST 1 VIEW; 12/21/2020 3:49 pm INDICATION: SOB. COMPARISON: None. ACCESSION NUMBER(S): [id number] ORDERING CLINICIAN: BERNIE BARAJAS FINDINGS: CARDIOMEDIASTINAL SILHOUETTE: [...] Electronically signed by: TIFF FELDMAN MD Normal [facility] CORONAVIRUS 2019 BY PCRon SARS-CoV-2 (COVID-19) RNA DUSTIN+probe Ql (Unsp spec) Not detected Normal Not Detected [facility] Comment on above: Result Comment: . This test has received [facility] Emergency Use Authorization (EUA) and has been verified by [facility]. This test is only authorized for the duration of time that circumstances exist to justify the authorization of the emergency use of in vitro diagnostic tests for the detection of SARS-CoV-2 virus and/or diagnosis of COVID-19 infection under section 564(b)(1) of the Act, 21 U.S.C. 360bbb-3(b)(1), unless the authorization is terminated or revoked sooner. [facility] is certified under CLIA-88 as qualified to perform high complexity testing. Testing is performed in the [facility] laboratory located at [address] [place] [address]. SARS-CoV-2/Flu/RSV Multiplex Test: Fact sheet for providers: https://www.fda.gov/media/380646/download Fact sheet for patients: https://www.fda.gov/media/169969/download Performed By: #### C OV19 ####[address] [address] DATE OF SYMPTOM ONSET [YYYYMMDD]? [id number] [facility] Comment on above: Performed By: #### C OV19 ####[address] [address] Lab Specimen Source Nasal, Nasopharyngeal [facility] Comment on above: Performed By: #### C OV19 ####[address] [address] Covid 19 Resultson 1 SARS-CoV-2 (COVID-19) RNA [...] be contacted by the [facility] to see if any of [...] or Naproxen (Aleve) can also be used. Euav-any-tnjmurx cough and cold medicines can be used according to the instructions on the package. Some bxcp-vuo-ydfviiz medicines also contain acetaminophen. Make sure you [...] water are not available, use alcohol-based hand photovoltaic testing technician. Avoid touching your eyes, nose, and [...] for 24 flakito (more content not included)... [facility] Narrative Note - Outpatiento n 12-21-2020 Narrative Note - Outpatient Narrative Note: Description Patient presented to the clinic today for evaluation of cough, wheezing/shortness of breath, chest discomfort, and known exposure to COVID-19. Visibly dyspneic upon initial presentation to the front office associate; SpO2 checked and was 94%. In light of symptoms (and as we do not have nebulizer treatments available in this urgent care), advised would be best to seek care at the ER [facility]. Patient verbalized understanding and agreed; no questions/concerns verbalized. Declined offer for emergency transport. Electronic Signatures: Kat Gleason (CENTRIFUGE OPERATOR-COUNTER WAITER) (Signed 21-Dec-2020 14:56) Authored: Narrative Note - OP Last Updated: 21-Dec-2020 14:56 by Kat Gleason (CENTRIFUGE OPERATOR-COUNTER WAITER) [facility] Provider Note - ED v3on 12-02 Provider [...] Authorization (EUA) and has been verified by [facility]. This test is only authorized for [...] independently She is placed on a continuous certified alcohol drug counselor with pulse oximetry monitoring. Old records and [...] computer instructions (more content not included)... Normal [facility] Risk Screen - Adult Emergenc [...] Communicatenone Learning Preferencesaudio Cultural Considerationsnone Developmental Considerationsnone Anglican Considerationsnone Learning Assessment (Other Learner): Learning Assessment (Other Learner): Other learner availableno Pressure Injury/TB/Substance: Pressure Injury: Pressure Injury Present on Admissionno Do you have a coughyes... Has your cough lasted longer than 2 weeksno Smoking Statusnever smoker Alcohol Usedenies Drug Usedenies Drug 2 Usedenies Admission Risk Screen: Significant IndicatorsComplete CAGE: CAGE: Is this an injured patient at a Trauma Center ([facility]/[place]/[facility]/[place]): no Electronic Signatures: Kimberlee Albarran (GLYNN) (Signed 21-Dec-2020 15:07) Authored: Preferred Language, Advanced Directives, Family Violence Adult, Learning Assessment (Patient), Learning Assessment (Other Learner), Pressure Injury/TB/Substance, Pressure Injury, CAGE Last Updated: 21-Dec-2020 15:07 by Kimberlee Albarran (GLYNN) Normal [facility] TROPONIN Ion 12-21-2020 Troponin I.cardiac [Mass/Vol] ng/mL Normal 0.00 - 0.03 [facility] Comment on above: Result Comment: [...] is performed using different testing methodology at [facility] than at other [facility]. Direct result comparisons should only be made within the same method. Performed By: #### T ROP2 #### [facility] [address] [id number] Triage - EDon 12-21-2020 Triage - ED [...] Accompanied By: self Language: Spoken Language Preferred: Dutch Reading Language Preferred: Dutch Photolithographic Stripper Requested: no tractor engine mechanic was requested MDRO: History of MDRO: no [...] BMI (kg/m2): 35.952 Calculated BSA (m2) 2.12 [place] Coma Scale: Best Eye Response: (E4) spontaneous [...] Last Updated: 21-Dec-2020 15:06 by Kimberlee Albarran) [facility] Office Visiton 10-22-2016 Documentation of current medications (procedure) Done Invalid Interpretation Code [facility] Work Phone: Fall risk assessment Yes Invalid Interpretation Code [facility] Work Phone: Clinical Lists Update: Prelo client engagement specialist 10-21-2016 Left ventricular Ejection fraction 55 % Invalid Interpretation Code [facility] Work Phone: Office Visit: [facility] 04-15-20 Dietary management education, guidance, and counseling (procedure) yes Invalid Interpretation Code [facility] Work Phone: [phone] Protein mass conc Done [facility] Work Phone: [phone] Lab Report: Basic Metabolic Profile (BMP)on 05-28-2015 Anion gap 7 mmol/L Invalid Interpretation Code 5-15 [facility] Work Phone: [phone] Anion gap molar conc 7 mmol/L 5-[address] [facility] Work Phone: [phone] Calcium mass conc 8.8 mg/dL Invalid Interpretation Code 8.5-10.1 [facility] Work Phone: [phone] Chloride molar conc 106 mmol/L Invalid Interpretation Code 98-107 [facility] Work Phone: [phone] CO2 32.0 mmol/L Invalid Interpretation Code 21.0-32.0 [facility] Work Phone: [phone] CO2 ppres (BldV) 32.0 mmol/L 21.0-32.0 [facility] Work Phone: [phone] Creatinine mass conc 0.64 mg/dL Invalid Interpretation Code 0.55-1.20 [facility] Work Phone: [phone] eGFR (non-black) 117 mL/min/{1.73_m2} Invalid Interpretation Code >60 [facility] Work Phone: [phone] EST GFR - AA 117 mL/min >60 [facility] Work Phone: [phone] GFR/1.73 sq M predicted among non-blacks MDRD vol rate/area (S/P/Bld) 97 mL/min/{1.73_m2} Invalid Interpretation Code >60 [facility] Work Phone: [phone] Glucose 84 mg/dL Invalid Interpretation Code 70-110 [facility] Work Phone: [phone] Glucose mass conc 84 mg/dL 70-110 [facility] Work Phone: [phone] Potassium molar conc 4.6 mmol/L Invalid Interpretation Code 3.5-5.1 [facility] Work Phone: [phone] Sodium molar conc 145 mmol/L Invalid Interpretation Code 136-145 [facility] Work Phone: [phone] Urea nitrogen mass conc 12 mg/dL Invalid Interpretation Code 7-18 [facility] Work Phone: [phone] Urea nitrogen/Creatinine mass ratio 18.8 RATIO Invalid Interpretation Code 10-20 [facility] Work Phone: [phone] Office Visiton 05-28-2015 General cardiovascular disease 10Y risk [#] Moffit.D'Agostino 11 % Invalid Interpretation Code [facility] Work Phone: [phone] Tobacco smoking status NHIS Never smoker [facility] Work Phone: [phone] Tobacco use CPHS Never smoker Invalid Interpretation Code [facility] Work Phone: [phone] Clinical Lists Update: Prelo client engagement specialist 03-07-2015 Cholesterol in HDL mass conc 63 mg/dL Invalid Interpretation Code [facility] Work Phone: [phone] Cholesterol in LDL mass conc 138 mg/dL High [facility] Work Phone: [phone] Cholesterol in LDL/Cholesterol in HDL mass ratio 2.19 Invalid Interpretation Code [facility] Work Phone: [phone] Cholesterol mass conc 227 mg/dL High [employer] Work Phone: [phone] Cholesterol.total/Kathy sterol in HDL mass ratio 3.60 {ratio} Invalid Interpretation Code [facility] Work Phone: [phone] Lipoprotein.pre-beta mass conc 26 mg/dL Invalid Interpretation Code [employer] Phone: [phone] Thyrotropin Qn 2.560 u[iU]/mL Invalid Interpretation Code [facility] Work Phone: [phone] Triglyceride mass conc 128 mg/dL Invalid Interpretation Code [facility] Work Phone: [phone] Replaced Document: [facility] E CG Observationson 11-22-2014 EKG QRS axis 8 deg [facility] Work Phone: [phone] electrocardiogram interpretation Sinus Rhythm -First degree A-V block Lisa = 246BORDERLINE RHYTHM Invalid Interpretation Code [employer] Phone: [phone] GE use only - for [employer] import when terms are not otherwise specified 452 ms Invalid Interpretation Code [facility] Work Phone: [phone] Interpretation Sinus Rhythm -First degree A-V block Lisa = 246BORDERLINE RHYTHM [facility] Work Phone: [phone] [place] -15 deg [facility] Work Phone: [phone] P wave axis, electrocardiogram -15 deg Invalid Interpretation Code [facility] Work Phone: [phone] TN Interval 246 ms [facility] Work Phone: [phone] TN interval, electrocardiogram 246 ms Invalid Interpretation Code [facility] Work Phone: [phone] Pulse (Heart Rate) 60 /min Invalid Interpretation Code [facility] Work Phone: [phone] QRS axis, electrocardiogram 8 deg Invalid Interpretation Code [facility] Work Phone: [phone] QRS Duration 106 ms [facility] Work Phone: [phone] QRS duration, electrocardiogram 106 ms Invalid Interpretation Code [facility] Work Phone: [phone] QT Interval new path ms [facility] Work Phone: [phone] QT interval, electrocardiogram new path ms Invalid Interpretation Code [facility] Work Phone: [phone] QTc Monahan 452 ms [facility] Work Phone: [phone] T [place] 21 deg [facility] Work Phone: [phone] T wave axis, electrocardiogram 21 deg Invalid Interpretation Code [facility] Work Phone: [phone] Office Visiton 05-25-2014 cardiac risk group B Invalid Interpretation Code [facility] Work Phone: [phone] Lab Report: CBCDon 4 Absolute Neutrophil count 5.4 X10 3/UL Normal 2.0-7.7 [facility] Work Phone: ANC 5.4 X10 3/UL Normal 2.0-7.7 [facility] Work Phone: Basophils/100 leukocytes 0.6 % Normal 0-1 [facility] Work Phone: Basophils/100 WBC (Bld) 0.6 % Normal 0-1 [facility] Work Phone: [phone] Eosinophils/100 leukocytes 1.4 % Normal 0-5 [facility] Work Phone: Eosinophils/100 WBC (Bld) 1.4 % Normal 0-5 [facility] Work Phone: Erythrocytes (RBC) 4.95 10*6/uL Normal 4.2-5.[address] [facility] Work Phone: Hematocrit (HCT) 41.6 % Normal 37-47 [facility] Work Phone: Hematocrit Volume Fraction (Bld) 41.6 % Normal 37-47 [facility] Work Phone: Hemoglobin mass conc (Bld) 14.4 g/dL Normal 12.0-15.0 [facility] Work Phone: Lymphocytes/100 leukocytes 23.0 % Normal 19-41 [facility] Work Phone: Lymphocytes/100 WBC (Bld) 23.0 % Normal 19-41 [facility] Work Phone: MCH 29.1 pg Normal 27.0-32.0 [facility] Work Phone: MCH Entitic mass (RBC) 29.1 pg Normal 27.0-32.0 [facility] Work Phone: MCHC 34.6 G/GL Normal 32-36 [facility] Work Phone: MCHC mass conc [...] Phone: Neutrophils/100 leukocytes 66.9 % Normal 47-70 [facility] Work Phone: Neutrophils/100 WBC (Bld) 66.9 % Normal 47-70 [facility] Work Phone: [phone] Platelet mean volume Entitic volume (Bld) 10.7 fL Normal 6.2-12.0 [facility] Work Phone: [phone] Platelets 209 10*3/mm3 Normal 150-450 [facility] Work Phone: [phone] Platelets #/vol (Bld) 209 10*3/mm3 Normal 150-450 [facility] Work Phone: [phone] PMV by Davidker 10.7 fL Normal 6.2-12.0 [facility] Work Phone: [phone] RBC #/vol (Bld) 4.95 10*6/uL Normal 4.2-5.4 [facility] Work Phone: [phone] WBC #/vol (Bld) 8.1 10*3/uL Normal 4.4-11.0 [facility] Work Phone: [phone] WBC (Leukocytes) 8.1 10*3/uL Normal 4.4-11.0 [facility] Work Phone: [phone]) Lab Report: MGon 07-19-2013 Magnesium mass conc 1.9 mg/dL Normal 1.8-2.4 [facility] Work Phone: [phone] Lab Report: T4on 05-18-2012 T4 mass conc 11.9 ug/dL Normal 4.8-13.9 [facility] Work Phone: [phone] Lab Report: PTon 05-06-2011 INR Coag RelTime (PPP) 1.0 {INR} Normal [facility] Work Phone: [phone] INR in blood by coagulation 1.0 {INR} Normal [facility] Work Phone: [phone] prothrombin time, actual/normal, ratio 12.8 SECONDS Normal 11.9-14.4 [facility] Work Phone: [phone] PTP 12.8 SECONDS Normal 11.9-14.4 [facility] Work Phone: Lab Report: PTTon 05-06-2011 aPTT Coag time (Bld) 26 s Normal 24.1-36.2 [facility] Work Phone: [phone] Replaced Document: Hyun ECHEVERRIA Observationson 05-05-2011 Pulse (Heart Rate) 420 ms Invalid Interpretation Code [facility] Work Phone: [phone] Vital Signs Date Time Vital Sign Value Performing Clinician Facility 02-05-2025 14:12-0400 Body height 165.[address] Michael Puga DO Work Phone: [facility] 02-05-2025 14:12-0400 Body mass index (BMI) [Ratio] 38.7 kg/m2 Dr. Michael Puag DO Work Phone: [facility] 02-05-2025 14:12-0400 Body weight 105.[address] Michael Puga DO Work Phone: [facility] 02-05-2025 14:12-0400 Diastolic blood pressure 64 mm[Hg] Dr. Michael Puga DO Work Phone: [facility] 02-05-2025 14:12-0400 Heart rate 62 /min Dr. Michael Puga DO Work Phone: [facility] 02-05-2025 14:12-0400 Respiratory rate 16 /min Dr. Michael Puga DO Work Phone: [facility] 02-05-2025 14:12-0400 Systolic blood pressure 128 mm[Hg] Dr. Michael Puga DO Work Phone: [facility] 01-12-2025 10:24-0400 Body height 165.1 cm Noemy Hairston MD Work Phone: [facility] 01-12-2025 10:24-0400 Body mass index (BMI) [Ratio] 38.91 kg/m2 Noemy Hiarston MD Work Phone: [facility] 01-12-2025 10:24-0400 Body temperature 95.31 [degF] Noemy Hairston MD Work Phone: [facility] 01-12-2025 10:24-0400 Body weight 106.05 kg Noemy Hairston MD Work Phone: [facility] 01-12-2025 10:24-0400 Diastolic blood pressure 63 mm[Hg] Noemy Hairston MD Work Phone: [facility] 01-12-2025 10:24-0400 Heart rate 60 /min Noemy Hairston MD Work Phone: [facility] 01-12-2025 10:24-0400 Respiratory rate 18 /min Noemy Hairston MD Work Phone: [facility] 01-12-2025 10:24-0400 SaO2% (BldA) [Mass fraction] 98 % Noemy Hairston MD Work Phone: [facility] 01-12-2025 10:24-0400 Systolic blood pressure 121 mm[Hg] Noemy Hairston MD Work Phone: [facility] 01-01-2025 13:13-0400 Body temperature 98.4 [degF] Dr. Michael Puga DO Work Phone: [facility] 01-01-2025 13:13-0400 Diastolic blood pressure 49 mm[Hg] Dr. Michael Puga DO Work Phone: [facility] 01-01-2025 13:13-0400 Heart rate 62 /min Dr. Michael Puga DO Work Phone: [facility] 01-01-2025 13:13-0400 Respiratory rate 18 /min Dr. Michael Puga DO Work Phone: [facility] 01-01-2025 13:13-0400 SaO2% (BldA) [Mass fraction] 91 % Dr. Michael Puga DO Work Phone: [facility] 01-01-2025 13:13-0400 Systolic blood pressure 165 mm[Hg] Dr. Michael Puga DO Work Phone: [facility] 01-01-2025 05:37-0400 Body mass index (BMI) [Ratio] 40.6 kg/m2 Dr. Michael Puga DO Work Phone: 9(638)917-367964 [place] [address] 01-01-2025 05:37-0400 Body weight 110.[address] Michael Puga DO Work Phone: 9(698)331-333764 [place] [address] 12-31-2024 10:08-0400 Body height 165.[address] Michael Puga DO Work Phone: 8(669)489-672964 [place] [address] 12-31-2024 09:00-0400 Inhaled oxygen flow rate 2 L/min Dr. Michael Puga DO Work Phone: 9(616)362-605664 [place] [address] 12-29-2024 16:17-0400 Body temperature 97.7 [degF] Dr. Michael Puga DO Work Phone: 9(592)357-901664 [place] [address] 12-29-2024 16:17-0400 Diastolic blood pressure 66 mm[Hg] Dr. Michael Puga DO Work Phone: 8(973)549-992364 [place] [address] 12-29-2024 16:17-0400 Heart rate 60 /min Dr. Michael Puga DO Work Phone: 2(047)838-119864 [place] [address] 12-29-2024 16:17-0400 Respiratory rate 20 /min Dr. Michael Puga DO Work Phone: 0(777)811-344864 [place] [address] 12-29-2024 16:17-0400 SaO2% (BldA) [Mass fraction] 93 % Dr. Michael Puga DO Work Phone: 1(836)085-710264 [place] [address] 12-29-2024 16:17-0400 Systolic blood pressure 173 mm[Hg] Dr. Michael Puga DO Work Phone: 6(196)374-951064 [place] [address] 12-29-2024 13:13-0400 Body height 165.[address] Michael Puga DO Work Phone: 6(103)439-056964 [place] [address] 12-29-2024 13:13-0400 Body mass index (BMI) [Ratio] 42.2 kg/m2 Dr. Michael Puga DO Work Phone: 1(326)574-767964 [place] [address] 12-29-2024 13:13-0400 Body weight 115.[address] Michael Puga DO Work Phone: 2(168)738-311064 [place] [address] 12-27-2024 13:57-0400 Body height 165.[address] Michael Puga DO Work Phone: 5(978)932-482964 [place] [address] 12-27-2024 13:57-0400 Body mass index (BMI) [Ratio] 40.7 kg/m2 Dr. Michael Puga DO Work Phone: 6(844)225-868464 [place] [address] 12-27-2024 13:57-0400 Body weight 111.[address] Michael Puga DO Work Phone: 6(191)153-089664 [place] [address] 12-27-2024 13:57-0400 Diastolic blood pressure 66 mm[Hg] Dr. Michael Puga DO Work Phone: 1(987)029-388164 [place] [address] 12-27-2024 13:57-0400 Heart rate 60 /min Dr. Michael Puga DO Work Phone: 7(392)937-483664 [place] [address] 12-27-2024 13:57-0400 Respiratory rate 18 /min Dr. Michael Puga DO Work Phone: 8(867)739-686664 [place] [address] 12-27-2024 13:57-0400 SaO2% (BldA) [Mass fraction] 94 % Dr. Michael Puga DO Work Phone: 5(106)074-745364 [place] [address] 12-27-2024 13:57-0400 Systolic blood pressure 144 mm[Hg] Dr. Michael Puga DO Work Phone: 2(246)352-716564 [place] [address] 12-23-2024 22:05-0400 Body temperature 97.6 [degF] Dr. Michael Puga DO Work Phone: 0(545)292-780664 [place] [address] 12-23-2024 22:05-0400 Diastolic blood pressure 61 mm[Hg] Dr. Michael Puga DO Work Phone: 7(446)271-585864 [place] [address] 12-23-2024 22:05-0400 Heart rate 62 /min Dr. Michael Puga DO Work Phone: 5(954)952-298964 [place] [address] 12-23-2024 22:05-0400 Respiratory rate 19 /min Dr. Michael Puga DO Work Phone: [facility] 12-23-2024 22:05-0400 SaO2% (BldA) [Mass fraction] 96 % Dr. Michael Puga DO Work Phone: [facility] 12-23-2024 22:05-0400 Systolic blood pressure 156 mm[Hg] Dr. Michael Puga DO Work Phone: [facility] 12-23-2024 19:04-0400 Body height 165.[address] Michael Puga DO Work Phone: [facility] 12-20-2024 14:42-0400 Body mass index (BMI) [Ratio] 40.94 kg/m2 Sharon John CENTRIFUGE 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 Work Phone: [facility] 12-20-2024 14:42-0400 Body weight 111.58 kg Sharon John CENTRIFUGE 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 Work Phone: [facility] 12-20-2024 14:42-0400 Diastolic blood pressure 76 mm[Hg] Sharon John CENTRIFUGE 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 Work Phone: [facility] 12-20-2024 14:42-0400 Heart rate 60 /min Sharon John CENTRIFUGE 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 Work Phone: [facility] 12-20-2024 14:42-0400 Respiratory rate 16 /min Sharon John CENTRIFUGE 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 Work Phone: [facility] 12-20-2024 14:42-0400 SaO2% (BldA) [Mass fraction] 97 % Sharon John CENTRIFUGE 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 Work Phone: [facility] 12-20-2024 14:42-0400 Systolic blood pressure 137 mm[Hg] Sharon John CENTRIFUGE 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 Work Phone: [facility] 12-14-2024 08:49-0400 Body temperature 98.4 [degF] Dr. Michael Puga DO Work Phone: 0(620)914-276364 [place] [address] 12-14-2024 08:49-0400 Diastolic blood pressure 60 mm[Hg] Dr. Michael Puga DO Work Phone: 4(518)657-547464 [place] [address] 12-14-2024 08:49-0400 Heart rate 66 /min Dr. Michael Puga DO Work Phone: 5(856)926-864064 [place] [address] 12-14-2024 08:49-0400 Respiratory rate 16 /min Dr. Michael Puga DO Work Phone: 4(756)054-023164 [place] [address] 12-14-2024 08:49-0400 SaO2% (BldA) [Mass fraction] 95 % Dr. Michael Puga DO Work Phone: 1(383)070-971164 [place] [address] 12-14-2024 08:49-0400 Systolic blood pressure 173 mm[Hg] Dr. Michael Puga DO Work Phone: 1(798)234-435364 [place] [address] 12-13-2024 21:31-0400 Diastolic blood pressure 54 mm[Hg] Dr. Michael Puga DO Work Phone: 5(885)730-331664 [place] [address] 12-13-2024 21:31-0400 Heart rate 62 /min Dr. Michael Puga DO Work Phone: 6(420)383-191964 [place] [address] 12-13-2024 21:31-0400 Systolic blood pressure 151 mm[Hg] Dr. Michael Puga DO Work Phone: 6(656)842-125664 [place] [address] 12-13-2024 20:00-0400 Respiratory rate 18 /min Dr. Michael Puga DO Work Phone: 3(706)665-224564 [place] [address] 12-13-2024 20:00-0400 SaO2% (BldA) [Mass fraction] 96 % Dr. Michael Puga DO Work Phone: 2(628)094-266064 [place] [address] 12-13-2024 18:00-0400 Body temperature 98.3 [degF] Dr. Michael Puga DO Work Phone: 7(900)504-596164 [place] [address] 12-12-2024 06:00-0400 Body mass index (BMI) [Ratio] 41 kg/m2 Dr. Michael Puga DO Work Phone: 9(603)954-638064 [place] [address] 12-12-2024 06:00-0400 Body weight 111.[address] Michael Puga DO Work Phone: 1(345)926-422464 [place] [address] 12-07-2024 15:25-0400 Body height 165.[address] Michael Puga DO Work Phone: 9(717)573-626264 [place] [address] 12-04-2024 21:04-0400 Inhaled oxygen concentration 21 % Dr. Michael Puga DO Work Phone: 2(758)530-938264 [place] [address] 12-04-2024 21:04-0400 Inhaled oxygen flow rate 0 L/min Dr. Michael Puga DO Work Phone: 3(280)589-005364 [place] [address] 12-03-2024 14:55-0400 Body temperature 97.5 [degF] Dr. Michael Puga DO Work Phone: 8(254)842-465864 [place] [address] 12-03-2024 14:55-0400 Diastolic blood pressure 55 mm[Hg] Dr. Michael Puga DO Work Phone: 3(292)941-019164 [place] [address] 12-03-2024 14:55-0400 Heart rate 61 /min Dr. Michael Puga DO Work Phone: 9(973)977-793264 [place] [address] 12-03-2024 14:55-0400 Respiratory rate 18 /min Dr. Michael Puga DO Work Phone: 8(245)457-150164 [place] [address] 12-03-2024 14:55-0400 SaO2% (BldA) [Mass fraction] 96 % Dr. Michael Puga DO Work Phone: 1(898)078-743364 [place] [address] 12-03-2024 14:55-0400 Systolic blood pressure 154 mm[Hg] Dr. Michael Puga DO Work Phone: 4(619)094-576964 [place] [address] 12-03-2024 06:00-0400 Body mass index (BMI) [Ratio] 40.1 kg/m2 Dr. Michael Puga DO Work Phone: 1(778)046-248764 [place] [address] 12-03-2024 06:00-0400 Body weight 109.[address] Michael Puga DO Work Phone: 8(490)775-890132 [place] [address] 12-03-2024 03:35-0400 Inhaled oxygen flow rate 2 L/min Dr. Michael Puga DO Work Phone: 8(172)825-706264 [place] [address] 11-30-2024 15:27-0400 Body height 165.[address] Michael Puga DO Work Phone: 4(087)457-663764 [place] [address] 11-29-2024 22:31-0400 Body temperature 98 [degF] Dr. Michael Puga DO Work Phone: 2(927)879-684364 [place] [address] 11-29-2024 22:31-0400 Diastolic blood pressure 56 mm[Hg] Dr. Michael Puga DO Work Phone: 1(768)427-562264 [place] [address] 11-29-2024 22:31-0400 Heart rate 61 /min Dr. Michael Puga DO Work Phone: 5(307)177-904164 [place] [address] 11-29-2024 22:31-0400 Respiratory rate 17 /min Dr. Michael Puga DO Work Phone: 4(095)355-526764 [place] [address] 11-29-2024 22:31-0400 SaO2% (BldA) [Mass fraction] 92 % Dr. Michael Puga DO Work Phone: 0(102)186-666364 [place] [address] 11-29-2024 22:31-0400 Systolic blood pressure 146 mm[Hg] Dr. Michael Puga DO Work Phone: 0(518)286-464464 [place] [address] 11-29-2024 15:58-0400 Body height 165.[address] Michael Puga DO Work Phone: 0(442)165-454464 [place] [address] 11-29-2024 15:58-0400 Body mass index (BMI) [Ratio] 41.8 kg/m2 Dr. Michael Puga DO Work Phone: 7(661)571-522664 [place] [address] 11-29-2024 15:58-0400 Body weight 114.[address] Michael Puga DO Work Phone: 3(919)735-083064 [place] [address] 11-02-2024 09:50-0400 Body height 165.[address] Michael Puga DO Work Phone: [facility] 11-02-2024 09:46-0400 Body mass index (BMI) [Ratio] 39.4 kg/m2 Dr. Michael Puga DO Work Phone: [facility] 11-02-2024 09:46-0400 Body weight 107.[address] Michael Puga DO Work Phone: [facility] 11-02-2024 09:46-0400 Diastolic blood pressure 62 mm[Hg] Dr. Michael Puga DO Work Phone: [facility] 11-02-2024 09:46-0400 Heart rate 59 /min Dr. Michael Puga DO Work Phone: [facility] 11-02-2024 09:46-0400 Respiratory rate 18 /min Dr. Michael Puga DO Work Phone: [facility] 11-02-2024 09:46-0400 Systolic blood pressure 152 mm[Hg] Dr. Michael Puga DO Work Phone: [facility] 10-27-2024 12:00-0400 Diastolic blood pressure 52 mm[Hg] Sarah Merchant PT Work Phone: [facility] 10-27-2024 12:00-0400 Heart rate 63 /min Sarah Merchant PT Work Phone: [facility] 10-27-2024 12:00-0400 SaO2% (BldA) [Mass fraction] 96 % Sarah Merchant PT Work Phone: [facility] 10-27-2024 12:00-0400 Systolic blood pressure 152 mm[Hg] Sarah Merchant PT Work Phone: [facility] 08-30-2024 15:17-0400 Body mass index (BMI) [Ratio] 38.27 kg/m2 Michael Puga DO Work Phone: [facility] 08-30-2024 15:17-0400 Body temperature 97 [degF] Michael Puga DO Work Phone: [facility] 08-30-2024 15:17-0400 Body weight 104.33 kg Michael Puga DO Work Phone: [facility] 08-30-2024 15:17-0400 Diastolic blood pressure 64 mm[Hg] Michael Puga DO Work Phone: [facility] 08-30-2024 15:17-0400 Heart rate 64 /min Michael Puga DO Work Phone: [facility] 08-30-2024 15:17-0400 Respiratory rate 20 /min Michael Puga DO Work Phone: [facility] 08-30-2024 15:17-0400 Systolic blood pressure 148 mm[Hg] Michael Puga DO Work Phone: [facility] 08-17-2024 15:17-0400 Diastolic blood pressure 68 mm[Hg] Asia Sherry CENTRIFUGE 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 Work Phone: [facility] 08-17-2024 15:17-0400 Heart rate 61 /min Asia Sherry CENTRIFUGE 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 Work Phone: [facility] 08-17-2024 15:17-0400 SaO2% (BldA) [Mass fraction] 98 % Asia Sherry CENTRIFUGE 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 Work Phone: [facility] 08-17-2024 15:17-0400 Systolic blood pressure 136 mm[Hg] Asia Sherry CENTRIFUGE 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 Work Phone: [facility] 06-21-2024 17:27-0500 Body mass index (BMI) [Ratio] 36.78 kg/m2 Michael Puga DO Work Phone: [facility] 06-21-2024 17:27-0500 Body temperature 97.7 [degF] Michael Puga DO Work Phone: [facility] 06-21-2024 17:27-0500 Body weight 100.25 kg Michael Puga DO Work Phone: [facility] 06-21-2024 17:27-0500 Diastolic blood pressure 70 mm[Hg] Michael Puga DO Work Phone: [facility] 06-21-2024 17:27-0500 Heart rate 64 /min Michael Puga DO Work Phone: [facility] 06-21-2024 17:27-0500 Respiratory rate 20 /min Michael Puga DO Work Phone: [facility] 06-21-2024 17:27-0500 Systolic blood pressure 160 mm[Hg] Michael Puga DO Work Phone: 8(644)406-021020 [place] [address] 06-01-2024 13:20-0500 Body height 165.[address] Michael Puga DO Work Phone: 8(931)070-492164 [place] [address] 06-01-2024 13:20-0500 Body mass index (BMI) [Ratio] 36.6 kg/m2 Dr. Michael Puga DO Work Phone: 7(823)043-439764 [place] [address] 06-01-2024 13:20-0500 Body weight 99.[address] Michael Puga DO Work Phone: 4(204)960-144364 [place] [address] 06-01-2024 13:20-0500 Diastolic blood pressure 73 mm[Hg] Dr. Michael Puga DO Work Phone: 4(429)933-318564 [place] [address] 06-01-2024 13:20-0500 Heart rate 60 /min Dr. Michael Puga DO Work Phone: 5(420)376-927164 [place] [address] 06-01-2024 13:20-0500 Respiratory rate 18 /min Dr. Michael Puga DO Work Phone: 6(934)397-259264 [place] [address] 06-01-2024 13:20-0500 SaO2% (BldA) [Mass fraction] 96 % Dr. Michael Puga DO Work Phone: 0(589)137-537064 [place] [address] 06-01-2024 13:20-0500 Systolic blood pressure 161 mm[Hg] Dr. Michael Puga DO Work Phone: 6(650)534-425564 [place] [address] 05-11-2024 13:05-0500 Body mass index (BMI) [Ratio] 37.01 kg/m2 Key Portillo CENTRIFUGE 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 Work Phone: [facility] 05-11-2024 13:05-0500 Body weight 100.88 kg Key Portillo CENTRIFUGE 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 Work Phone: [facility] 05-11-2024 13:05-0500 Diastolic blood pressure 58 mm[Hg] Key Portillo CENTRIFUGE 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 Work Phone: [facility] 05-11-2024 13:05-0500 Heart rate 60 /min Key Portillo CENTRIFUGE 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 Work Phone: [facility] 05-11-2024 13:05-0500 SaO2% (BldA) [Mass fraction] 95 % Key Portillo CENTRIFUGE 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 Work Phone: [facility] 05-11-2024 13:05-0500 Systolic blood pressure 130 mm[Hg] Key Portillo CENTRIFUGE 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 Work Phone: [facility] 05-02-2024 12:35-0500 Body temperature 97.9 [degF] Dr. Michael Puga DO Work Phone: [facility] 05-02-2024 12:35-0500 Diastolic blood pressure 56 mm[Hg] Dr. Michael Puga DO Work Phone: [facility] 05-02-2024 12:35-0500 Heart rate 60 /min Dr. Michael Puga DO Work Phone: [facility] 05-02-2024 12:35-0500 Respiratory rate 16 /min Dr. Michael Puga DO Work Phone: [facility] 05-02-2024 12:35-0500 SaO2% (BldA) [Mass fraction] 92 % Dr. Michael Puga DO Work Phone: [facility] 05-02-2024 12:35-0500 Systolic blood pressure 150 mm[Hg] Dr. Michael Puga DO Work Phone: [facility] 05-02-2024 12:11-0500 Body weight 101.[address] Michael Puga DO Work Phone: [facility] 05-02-2024 07:43-0500 Inhaled oxygen flow rate 2 L/min Dr. Michael Puga DO Work Phone: [facility] 05-02-2024 05:33-0500 Body mass index (BMI) [Ratio] 37.3 kg/m2 Dr. Michael Puga DO Work Phone: [facility] 05-02-2024 01:40-0500 Inhaled oxygen concentration 30 % Dr. Michael Puga DO Work Phone: [facility] 03-31-2024 11:40-0500 Diastolic blood pressure 78 mm[Hg] Raymundo De León MD Work Phone: [facility] 03-31-2024 11:40-0500 Heart rate 60 /min Raymundo De León MD Work Phone: [facility] 03-31-2024 11:40-0500 SaO2% (BldA) [Mass fraction] 95 % Raymundo De León MD Work Phone: [facility] 03-31-2024 11:40-0500 Systolic blood pressure 156 mm[Hg] Raymundo De León MD Work Phone: [facility] 03-31-2024 11:20-0500 Respiratory rate 18 /min Raymundo De León MD Work Phone: [facility] 03-31-2024 10:39-0500 Body height 165.1 cm Raymundo De León MD Work Phone: [facility] 03-31-2024 10:39-0500 Body mass index (BMI) [Ratio] 38.27 kg/m2 Raymundo De León MD Work Phone: [facility] 03-31-2024 10:39-0500 Body temperature 98.1 [degF] Raymundo De León MD Work Phone: [facility] 03-31-2024 10:39-0500 Body weight 104.33 kg Raymundo De León MD Work Phone: [facility] 03-27-2024 14:15-0500 Body height 165.1 cm Pacc 1 Work Phone: [facility] 03-27-2024 14:15-0500 Body mass index (BMI) [Ratio] 38.27 kg/m2 Pacc 1 Work Phone: [facility] 03-27-2024 14:15-0500 Body temperature 97.5 [degF] Pacc 1 Work Phone: [facility] 03-27-2024 14:15-0500 Body weight 104.33 kg Pacc 1 Work Phone: [facility] 03-27-2024 14:15-0500 Diastolic blood pressure 54 mm[Hg] Pacc 1 Work Phone: [facility] 03-27-2024 14:15-0500 Heart rate 60 /min Pacc 1 Work Phone: [facility] 03-27-2024 14:15-0500 Respiratory rate 16 /min Pacc 1 Work Phone: [facility] 03-27-2024 14:15-0500 SaO2% (BldA) [Mass fraction] 94 % Pacc 1 Work Phone: [facility] 03-27-2024 14:15-0500 Systolic blood pressure 122 mm[Hg] Pacc 1 Work Phone: [facility] 03-23-2024 12:00-0500 Diastolic blood pressure 69 mm[Hg] Sarah Merchant PT Work Phone: [facility] 03-23-2024 12:00-0500 Heart rate 66 /min Sarah Merchant PT Work Phone: [facility] 03-23-2024 12:00-0500 SaO2% (BldA) [Mass fraction] 95 % Sarah Merchant PT Work Phone: [facility] 03-23-2024 12:00-0500 Systolic blood pressure 170 mm[Hg] Sarah Merchant PT Work Phone: [facility] 03-13-2024 14:18-0500 Body height 165.1 cm Sharon John CENTRIFUGE 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 Work Phone: [facility] 03-13-2024 14:18-0500 Body mass index (BMI) [Ratio] 38.51 kg/m2 Sharon John CENTRIFUGE 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 Work Phone: [facility] 03-13-2024 14:18-0500 Body temperature 97.5 [degF] Sharon John CENTRIFUGE 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 Work Phone: [facility] 03-13-2024 14:18-0500 Body weight 104.96 kg Sharon John CENTRIFUGE 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 Work Phone: [facility] 03-13-2024 14:18-0500 Diastolic blood pressure 75 mm[Hg] Sharon John CENTRIFUGE 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 Work Phone: [facility] 03-13-2024 14:18-0500 Heart rate 71 /min Sharon John CENTRIFUGE 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 Work Phone: [facility] 03-13-2024 14:18-0500 SaO2% (BldA) [Mass fraction] 93 % Sharon John CENTRIFUGE 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 Work Phone: [facility] 03-13-2024 14:18-0500 Systolic blood pressure 184 mm[Hg] Sharon John CENTRIFUGE 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 Work Phone: [facility] 03-01-2024 17:08-0400 Body mass index (BMI) [Ratio] 38.12 kg/m2 Michael Puga DO Work Phone: [facility] 03-01-2024 17:08-0400 Body temperature 97.11 [degF] Michael Puga DO Work Phone: [facility] 03-01-2024 17:08-0400 Body weight 101.15 kg Michael Puga DO Work Phone: [facility] 03-01-2024 17:08-0400 Diastolic blood pressure 80 mm[Hg] Michael Puga DO Work Phone: [facility] 03-01-2024 17:08-0400 Heart rate 64 /min Michael Puga DO Work Phone: [facility] 03-01-2024 17:08-0400 Respiratory rate 20 /min Michael Puga DO Work Phone: [facility] 03-01-2024 17:08-0400 Systolic blood pressure 144 mm[Hg] Michael Puga DO Work Phone: [facility] 12-07-2023 16:00-0400 Diastolic blood pressure 68 mm[Hg] Wilfred Mcclellan LACE TEARING SUPERVISOR Work Phone: [facility] 12-07-2023 16:00-0400 Systolic blood pressure 144 mm[Hg] Wilfred Mcclellan LACE TEARING SUPERVISOR Work Phone: [facility] 12-01-2023 13:50-0400 Body mass index (BMI) [Ratio] 38.8 kg/m2 Michael Puga DO Work Phone: [facility] 12-01-2023 13:50-0400 Body temperature 98.01 [degF] Michael Puga DO Work Phone: [facility] 12-01-2023 13:50-0400 Body weight 102.97 kg Michael Puga DO Work Phone: [facility] 12-01-2023 13:50-0400 Diastolic blood pressure 76 mm[Hg] Michael Puga DO Work Phone: [facility] 12-01-2023 13:50-0400 Heart rate 64 /min Michael Puga DO Work Phone: [facility] 12-01-2023 13:50-0400 Respiratory rate 24 /min Michael Puga DO Work Phone: [facility] 12-01-2023 13:50-0400 Systolic blood pressure 146 mm[Hg] Michael Puga DO Work Phone: [facility] 10-14-2023 13:24-0400 Body mass index (BMI) [Ratio] 38.46 kg/m2 Key Portillo CENTRIFUGE 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 Work Phone: [facility] 10-14-2023 13:24-0400 Body weight 102.06 kg Key Portillo CENTRIFUGE 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 Work Phone: [facility] 10-14-2023 13:24-0400 Diastolic blood pressure 58 mm[Hg] Key Portillo CENTRIFUGE 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 Work Phone: [facility] 10-14-2023 13:24-0400 Heart rate 68 /min Key Portillo CENTRIFUGE 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 Work Phone: [facility] 10-14-2023 13:24-0400 Respiratory rate 16 /min Key Portillo CENTRIFUGE 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 Work Phone: [facility] 10-14-2023 13:24-0400 Systolic blood pressure 142 mm[Hg] Key Portillo CENTRIFUGE 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 Work Phone: [facility] 04-05-2023 11:22-0500 Body temperature 97.2 [degF] Michael Puga DO Work Phone: [facility] 04-05-2023 11:22-0500 Body weight 101.61 kg Michael Puga DO Work Phone: [facility] 04-05-2023 11:22-0500 Diastolic blood pressure 80 mm[Hg] Michael Puag DO Work Phone: [facility] 04-05-2023 11:22-0500 Heart rate 64 /min Michael Puga DO Work Phone: [facility] 04-05-2023 11:22-0500 Respiratory rate 16 /min Michael Puga DO Work Phone: [facility] 04-05-2023 11:22-0500 Systolic blood pressure 120 mm[Hg] Michael Puga DO Work Phone: [facility] 12-28-2022 14:00-0400 Body height 162.9 cm Pulm Wstr Work Phone: [facility] 12-28-2022 14:00-0400 Body weight 102.06 kg Pulm Wstr Work Phone: [facility] 12-28-2022 14:00-0400 Heart rate 66 /min Pulm Wstr Work Phone: [facility] 12-28-2022 14:00-0400 Respiratory rate 14 /min Pulm Wstr Work Phone: [facility] 12-28-2022 14:00-0400 SaO2% (BldA) [Mass fraction] 96 % Pulm Wstr Work Phone: [facility] 12-22-2022 15:24-0400 Body height 165.1 cm Michael Puga DO Work Phone: [facility] 12-22-2022 15:24-0400 Body weight 103.87 kg Michael Puga DO Work Phone: [facility] 12-22-2022 15:24-0400 Diastolic blood pressure 62 mm[Hg] Michael Puga DO Work Phone: [facility] 12-22-2022 15:24-0400 Heart rate 63 /min Michael Puga DO Work Phone: [facility] 12-22-2022 15:24-0400 Respiratory rate 18 /min Michael Puga DO Work Phone: [facility] 12-22-2022 15:24-0400 SaO2% (BldA) [Mass fraction] 96 % Michael Puga DO Work Phone: [facility] 12-22-2022 15:24-0400 Systolic blood pressure 130 mm[Hg] Michael Puga DO Work Phone: [facility] 06-22-2022 11:42-0500 Body temperature 98.2 [degF] Michael Puga DO Work Phone: [facility] 06-22-2022 11:42-0500 Body weight 102.51 kg Michael Puga DO Work Phone: [facility] 06-22-2022 11:42-0500 Diastolic blood pressure 68 mm[Hg] Michael Puga DO Work Phone: [facility] 06-22-2022 11:42-0500 Heart rate 64 /min Michael Puga DO Work Phone: [facility] 06-22-2022 11:42-0500 Respiratory rate 16 /min Michael Puga DO Work Phone: [facility] 06-22-2022 11:42-0500 Systolic blood pressure 128 mm[Hg] Michael Puga DO Work Phone: [facility] 06-04-2022 15:28-0500 Diastolic blood pressure 80 mm[Hg] Key Portillo CENTRIFUGE 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 Work Phone: [facility] 06-04-2022 15:28-0500 Systolic blood pressure 164 mm[Hg] Key Portillo CENTRIFUGE 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 Work Phone: [facility] 06-04-2022 14:34-0500 Body weight 106.69 kg Key Portillo CENTRIFUGE 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 Work Phone: [facility] 06-04-2022 14:34-0500 Heart rate 63 /min Key Portillo CENTRIFUGE 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 Work Phone: [facility] 06-04-2022 14:34-0500 Respiratory rate 16 /min Key Portillo CENTRIFUGE 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 Work Phone: [facility] 06-04-2022 14:34-0500 SaO2% (BldA) [Mass fraction] 93 % Key Portillo CENTRIFUGE 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 Work Phone: [facility] 04-21-2022 12:31-0500 Body temperature 96.8 [degF] Michael Puga DO Work Phone: [facility] 04-21-2022 12:31-0500 Body weight 105.23 kg Michael Puga DO Work Phone: [facility] 04-21-2022 12:31-0500 Diastolic blood pressure 74 mm[Hg] Michael Puga DO Work Phone: [facility] 04-21-2022 12:31-0500 Heart rate 60 /min Michael Puga DO Work Phone: [facility] 04-21-2022 12:31-0500 Respiratory rate 20 /min Michael Puga DO Work Phone: [facility] 04-21-2022 12:31-0500 Systolic blood pressure 124 mm[Hg] Michael Puga DO Work Phone: [facility] 02-16-2022 11:44-0400 Body temperature 97 [degF] Michael Puga DO Work Phone: [facility] 02-16-2022 11:44-0400 Body weight 105.69 kg Michael Puga DO Work Phone: [facility] 02-16-2022 11:44-0400 Diastolic blood pressure 70 mm[Hg] Michael Puga DO Work Phone: [facility] 02-16-2022 11:44-0400 Heart rate 68 /min Michael Puga DO Work Phone: [facility] 02-16-2022 11:44-0400 Respiratory rate 16 /min Michael Puga DO Work Phone: [facility] 02-16-2022 11:44-0400 Systolic blood pressure 146 mm[Hg] Michael Puga DO Work Phone: [facility] 01-16-2022 09:59-0400 Body temperature 97.59 [degF] Raymundo De León MD Work Phone: [facility] 01-16-2022 09:59-0400 Body weight 105.05 kg Raymundo De León MD Work Phone: [facility] 01-16-2022 09:59-0400 Heart rate 80 /min Raymundo De León MD Work Phone: [facility] 01-16-2022 09:59-0400 SaO2% (BldA) [Mass fraction] 96 % Raymundo De León MD Work Phone: [facility] 01-08-2022 14:45-0400 Diastolic blood pressure 72 mm[Hg] Raymundo De León MD Work Phone: [facility] 01-08-2022 14:45-0400 Heart rate 60 /min Raymundo De León MD Work Phone: [facility] 01-08-2022 14:45-0400 Respiratory rate 16 /min Raymundo De León MD Work Phone: [facility] 01-08-2022 14:45-0400 SaO2% (BldA) [Mass fraction] 92 % Raymundo De León MD Work Phone: [facility] 01-08-2022 14:45-0400 Systolic blood pressure 163 mm[Hg] Raymundo De León MD Work Phone: [facility] 01-08-2022 13:15-0400 Body temperature 97.81 [degF] Raymundo De León MD Work Phone: [facility] 12-18-2021 15:07-0400 Body height 165.1 cm Raymundo De León MD Work Phone: [facility] 12-18-2021 15:07-0400 Body temperature 98.71 [degF] Raymundo De León MD Work Phone: [facility] 12-18-2021 15:07-0400 Body weight 102.51 kg Raymundo De León MD Work Phone: [facility] 12-18-2021 15:07-0400 Diastolic blood pressure 70 mm[Hg] Raymundo De León MD Work Phone: [facility] 12-18-2021 15:07-0400 Heart rate 78 /min Raymundo De León MD Work Phone: [facility] 12-18-2021 15:07-0400 SaO2% (BldA) [Mass fraction] 98 % Raymundo De León MD Work Phone: [facility] 12-18-2021 15:07-0400 Systolic blood pressure 138 mm[Hg] Raymundo De León MD Work Phone: [facility] 10-20-2021 15:25-0400 Body temperature 98.91 [degF] Nunu Bogner PA-C Work Phone: [facility] 10-20-2021 15:25-0400 Body weight 101.33 kg Nunu Bogner PA-C Work Phone: [facility] 10-20-2021 15:25-0400 Diastolic blood pressure 80 mm[Hg] Nunu Bogner PA-C Work Phone: [facility] 10-20-2021 15:25-0400 Heart rate 61 /min Nunu Bogner PA-C Work Phone: [facility] 10-20-2021 15:25-0400 Respiratory rate 20 /min Nunu Bogner PA-C Work Phone: [facility] 10-20-2021 15:25-0400 SaO2% (BldA) [Mass fraction] 95 % Nunu Bogner PA-C Work Phone: [facility] 10-20-2021 15:25-0400 Systolic blood pressure 134 mm[Hg] Nunu Bogner PA-C Work Phone: [facility] 06-09-2021 09:35-0500 Body height 165.[address] Michael Puga Work Phone: [facility] Work Phone: 06-09-2021 09:35-0500 Body weight 100.[address] Michael Puga Work Phone: [facility] Work Phone: 06-06-2021 08:07-0500 Body mass index (BMI) [Ratio] 36.9 kg/m2 Dr. Michael Puga Work Phone: [facility] Work Phone: 06-02-2021 11:58-0500 Body mass index (BMI) [Ratio] 36.9 kg/m2 Dr. Michael Puga Work Phone: [facility] Work Phone: 06-02-2021 11:58-0500 Body weight 100.[address] Michael Puga Work Phone: [facility] Work Phone: 06-02-2021 11:58-0500 Diastolic blood pressure 79 mm[Hg] Dr. Michael Puga Work Phone: [facility] Work Phone: 06-02-2021 11:58-0500 Heart rate 70 /min Dr. Michael Puga Work Phone: [facility] Work Phone: 06-02-2021 11:58-0500 Respiratory rate 18 /min Dr. Michael Puga Work Phone: [facility] Work Phone: 06-02-2021 11:58-0500 SaO2% (BldA) [Mass fraction] 94 % Dr. Michael Puga Work Phone: [facility] Work Phone: 06-02-2021 11:58-0500 Systolic blood pressure 174 mm[Hg] Dr. Michael Puga Work Phone: [facility] Work Phone: 12-21-2020 19:10-0400 Diastolic blood pressure 94 mm[Hg] Michael Puga Other Phone: [facility] 12-21-2020 19:10-0400 Heart rate 88 /min Michael Puga Other Phone: [facility] 12-21-2020 19:10-0400 Respiratory rate 18 /min Michael Puga Other Phone: [facility] 12-21-2020 19:10-0400 SaO2% (BldA) [Mass fraction] 95 % Michael Puga Other Phone: [facility] 12-21-2020 19:10-0400 Systolic blood pressure 144 mm[Hg] Michael Puga Other Phone: [facility] 12-21-2020 17:03-0400 Body height 165.1 cm Michael Levyrison Other Phone: [facility] 12-21-2020 17:03-0400 Body temperature 99.86 [degF] Michael Levyrison Other Phone: [facility] 12-21-2020 17:03-0400 Body weight 98 kg Michael Levyrison Other Phone: [facility] 10-22-2016 12:59-0400 BMI (Body Mass Index) 37.27 kg/m2 [facility] Work Phone: 10-22-2016 12:59-0400 BP Diastolic 70 mm[Hg] Shalini Montanez [facility] Work Phone: 10-22-2016 12:59-0400 BP Systolic 140 mm[Hg] Shalini Montanez [facility] Work Phone: 10-22-2016 12:59-0400 Height 165.1 cm Shalini Montanez [facility] Work Phone: 10-22-2016 12:59-0400 Pulse (Heart Rate) 68 /min Shalini Montanez [facility] Work Phone: 10-22-2016 12:59-0400 Respiratory Rate 20 /min Shalini Montanez [facility] Work Phone: 10-22-2016 12:59-0400 Weight 101.61 kg [facility] Work Phone: 04-15-2016 13:20-0500 BMI (Body Mass Index) 39.14 kg/m2 [facility] Work Phone: 04-15-2016 13:20-0500 BP Diastolic 62 mm[Hg] Delisa Juárez RN [facility] Work Phone: 04-15-2016 13:20-0500 BP Systolic 130 mm[Hg] Delisa Juárez RN [facility] Work Phone: 04-15-2016 13:20-0500 BSA [...] BP Diastolic 82 mm[Hg] Delisa Juárez RN [facility] Work Phone: 05-28-2015 13:30-0500 BP Systolic 177 mm[Hg] Delisa Marquita RN [facility] Work Phone: 11-22-2014 13:42-0400 Heart rate 60 /min Delisa Juárez RN [facility] Work Phone: 05-05-2011 16:04-0500 Heart rate 420 ms Delisa Juárez RN [facility] Work Phone: 04-07-2011 13:46-0500 Height 165.1 cm Delisa Juárez RN [facility] Work Phone: Encounters Encounter Date Encounter Type Care Provider Facility Start: 03-20-2025 ambulatory Karen [facility] Fa cility:[facility] Start: 03-07-2025 ambulatory Karen Johnson [facility] Fa cility:[facility] Start: 02-05-2025 Kristal ERVINC -Rad iology [facility] Work Phone: Start: 02-05-2025 End: 02-05-[address] Michael Puga DO Work Phone: -[facility] Start: 02-05-2025 End: 02-05-2025 Kristal ERVINC -[facility] Work Phone: Start: 02-05-2025 End: 02-05-2025 ambulatory [facility] Facility:[facility] Start: 01-31-2025 End: 01-31-2025 ambulatory NOEMY HAIRSTON Facility:[facility] Start: 01-26-2025 End: 01-26-[address] Michael Puga DO Work Phone: -[facility] Start: 01-26-2025 End: 01-26-2025 Dr. Gallo Hickey MD -[facility] Work Phone: Start: 01-23-2025 End: 01-23-[address] Michael Puga DO Work Phone: -Laboratory [facility] Start: 01-23-2025 End: 01-23-2025 [facility] Karen MCKEON -Laboratory Britt[facility] Mahoney Start: 01-23-2025 End: 01-23-2025 ambulatory [facility] Facility:[facility] Start: 01-12-2025 End: 01-12-2025 Patient encounter procedure Noemy Hairston MD Work Phone: Pulmonary Medicine Comment on above: Pulmonary hypertensi on (HCC) (Primary Dx); Chronic heart failure with preserved ejection fraction (HFpEF) (HCC); Atrial fibrillation, unspecified type (HCC); Exertional dyspnea; JOSE (obstructive sleep apnea) Start: 01-12-2025 End: 01-12-2025 ambulatory NOEMY HAIRSTON Facility:[facility] Start: 01-05-2025 End: 01-05-[address] Michael Puga DO Work Phone: -Laboratory Specimen Start: 01-05-2025 End: 01-05-2025 [facility] Karen MCKEON -Laboratory Specimen Work Phone: Start: 01-05-2025 End: 01-05-2025 ambulatory [facility] Facility:[facility] Start: 01-01-2025 Dr. Jonny Vicente MD -[facility] Work Phone: Start: 12-31-2024 Dr. Jonny Vicente MD -[facility] Work Phone: Start: 12-30-2024 Dr. Jonny Vicente MD -[facility] Work Phone: Start: 12-29-2024 ambulatory [facility] Fa cility:[facility] Start: 12-29-2024 End: 01-01-2025 Evaluation and management of inpatient Dr. Michael Puga DO Work Phone: -Progressive Care Unit Start: 12-29-2024 End: 01-01-2025 Dr. Len Nicolas MD -Progressive Care Unit Work Phone: Start: 12-29-2024 ambulatory [facility] Fa cility:[facility] Start: 12-27-2024 End: 12-27-2024 Anabel ALVA -[facility] Work Phone: Start: 12-27-2024 End: 12-27-[address] Michael Puga DO Work Phone: -[facility] Start: 12-23-2024 End: 12-23-2024 Dr. Michael Puga DO Work Phone: -Emergency Department Work Phone: Start: 12-23-2024 End: 12-23-2024 Emergency department patient visit Dr. Michael Puga DO Work Phone: -Emergency Department Start: 12-20-2024 End: 12-20-2024 Patient encounter procedure Sharon Jarrett APRN.COUNTER WAITER Work Phone: General Surgery Comment on above: Positive occult stoo l blood test (Primary Dx); Anemia, unspecified type Start: 12-20-2024 End: 12-20-2024 ambulatory MICHAEL PUGA Facility:[facility] Start: 12-20-2024 End: 12-20-[address] Michael Puga DO Work Phone: -Laboratory [facility] Start: 12-20-2024 End: 12-20-2024 Patient encounter procedure VS Karennati Johnson APPLIQUE CUTTER-C -Laboratory [facility] Start: 12-20-2024 End: 12-20-2024 VS Karennati Johnson APPLIQUE CUTTER-C -Laboratory [facility] Start: 12-20-2024 End: 12-20-2024 ambulatory Karen Johnson [facility] Facility:[facility] Start: 12-18-2024 End: 12-18-2024 Telephone encounter Michael Puga DO Work Phone: [facility] Comment on above: POC - PT Start: 12-15-2024 End: 12-15-2024 Telephone encounter Michael Puga DO Work Phone: [facility] Comment on above: Longterm Plan of Care Start: 12-14-2024 End: 12-14-2024 Telephone encounter Michael Puga DO Work Phone: [facility] Comment on above: Orders Start: 12-14-2024 Non-patient / Non-visit Dr. Alex Munoz DO -[facility] Work Phone: Start: 12-14-[address] Dr[address] DO [facility] Work Phone: Start: 12-12-2024 Non-patient / Non-visit Dr. Alex Munoz DO [facility] Work Phone: Start: 12-12-2024 Dr. [address] Mun[address] DO [facility] Work Phone: Start: 12-11-2024 Non-patient / Non-visit Dr. Alex Munoz DO [facility] Work Phone: Start: 12-11-2024 Dr. Radha Munoz DO [facility] Work Phone: Start: 12-07-2024 Non-patient / Non-visit Dr. Alex Munoz [facility] Work Phone: Start: 12-07-2024 Dr. Radha Munoz [facility] Work Phone: Start: 12-06-2024 Non-patient / Non-visit Dr. Alex Munoz [facility] Work Phone: Start: 12-06-2024 Dr. Radha Munoz [facility] Work Phone: Start: 12-05-2024 Non-patient / Non-visit Dr. Alex Munoz [facility] Work Phone: Start: 12-05-2024 Dr. Radha Munoz [facility] Work Phone: Start: 12-04-2024 Non-patient / Non-visit Dr. Alex Munoz [facility] Work Phone: Start: 12-04-2024 Dr. Radha Munoz [facility] Work Phone: Start: 12-04-2024 ambulatory Anabel ALVA Facility:[facility] Start: 12-03-2024 ambulatory [facility] Facility:[facility] Start: 12-03-2024 End: 12-14-2024 Evaluation and management of [facility] Start: 12-03-2024 End: 12-14-2024 Dr. Radha Munoz -Rehab Unit Work Phone: Start: 12-03-2024 Non-patient / Non-visit Dr. Waleska oscar MD -[facility] Work Phone: Start: 12-03-2024 Dr. Waleska Phillips MD [facility] Work Phone: Start: 12-02-2024 Non-patient / Non-visit Dr. Waleska oscar [facility] Work Phone: Start: 12-02-2024 Dr. Waleska Phillips MD [facility] Work Phone: Start: 12-01-2024 Non-patient / Non-visit Dr. Waleska oscar [facility] Work Phone: Start: 12-01-2024 Dr. Waleska Phillips [facility] Work Phone: Start: 11-30-2024 Non-patient / Non-visit Dr. Alyson Vicente [facility] Work Phone: Start: 11-30-2024 Dr. Jonny Vicente [facility] Work Phone: Start: 11-30-2024 ambulatory Michael Puga Facilit y:[facility] Start: 11-30-2024 Non-patient / Non-visit [facility]. Beltran [facility] Start: 11-30-2024 Dr. Gallo Hickey [facility] Start: 11-29-2024 End: 12-03-2024 ambulatory Waleska Phillips Facility:[facility] Start: 11-29-2024 End: 12-03-2024 Evaluation and management of inpatient Dr. Tacho Davis DO -[facility] Work Phone: Start: 11-29-2024 End: 12-03-[address] Michael Puga DO Work Phone: -Progressive Care Unit Start: 11-29-2024 End: 12-03-2024 Dr. Waleska Phillips MD -[facility] Work Phone: Start: 11-27-2024 End: 11-27-2024 Refill Michael Puga DO Work Phone: [facility] Comment on above: Refill Request Start: 11-26-2024 End: 11-26-[address] Michael Puga DO Work Phone: -[facility] Start: 11-26-2024 End: 11-26-[address] Gallo Hickey [facility] Work Phone: Start: 11-26-2024 End: 11-26-2024 Dr[facility] Work Phone: Start: 11-11-2024 End: 11-13-2024 Refill Key Portillo CENTRIFUGE 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 Work Phone: [facility] Comment on above: Refill Request Start: 11-10-2024 End: 11-13-2024 Telephone encounter Michael Puga DO Work Phone: [facility] Comment on above: Patient Update Start: 11-02-2024 End: 11-02-2024 Patient encounter procedure Anabel Horne [facility] Work Phone: Start: 11-02-2024 End: 11-02-2024 Anabel Horne [facility] Work Phone: Start: 11-02-2024 End: 11-02-[address] Michael Puga DO Work Phone: -[facility] Start: 11-01-2024 End: 11-01-2024 Telephone encounter Key Portillo CENTRIFUGE 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 Work Phone: [facility] Start: 10-31-2024 End: 10-31-[address] Michael Puga DO Work Phone: -Radiology [facility] Start: 10-31-2024 End: 10-31-2024 Patient [facility] Work Phone: Start: 10-31-2024 End: 10-31-2024 [facility] Work Phone: Start: 10-31-2024 End: 10-31-2024 ambulatory Michael Puga Facility:[facility] Start: 10-27-2024 End: 10-27-2024 ambulatory Sarah Merchant PT Work Phone: [facility] Comment on above: Abnormality of gait (Primary Dx); Weakness; Difficulty walking; Imbalance Start: 10-27-2024 End: 10-27-[address] Michael Puga DO Work Phone: -[facility] Start: 10-27-2024 End: 10-27-[address] [facility] Work Phone: Start: 10-27-2024 End: 10-27-2024 Dr. Gallo Hickey MD -[facility] Work Phone: Start: 10-25-2024 End: 10-26-2024 Telephone encounter Michael Puga DO Work Phone: [facility] Comment on above: Medication Question Start: 10-23-2024 End: 10-23-[address] Michael Puga DO Work Phone: Located [facility] Start: 10-23-2024 End: 10-23-[address] [facility] Work Phone: Start: 10-23-2024 End: 10-23-2024 [facility] Work Phone: Start: 10-16-2024 End: 10-16-[address] Michael Puga DO Work Phone: [facility] Start: 10-16-2024 End: 10-16-[address] [facility] Work Phone: Start: 10-16-2024 End: 10-16-2024 [facility] Work Phone: Start: 10-09-2024 End: 10-09-2024 ambulatory Joy Sun LACE TEARING SUPERVISOR [facility] Comment on above: Abnormality of gait (Primary Dx); Weakness; Difficulty walking; Imbalance Start: 10-02-2024 End: 10-02-2024 ambulatory Pj Bledsoe PT Work Phone: [facility] Comment on above: Abnormality of gait (Primary Dx); Weakness; Difficulty walking; Imbalance Start: 09-28-2024 End: 09-28-2024 Telephone encounter Key Portillo APRN.COUNTER WAITER Work Phone: [facility] Comment on above: report tremor is wor se Start: 09-28-2024 End: 09-28-2024 ambulatory Sarah Merchant PT Work Phone: [facility] Comment on above: Weakness (Primary Dx ); Difficulty walking; Abnormality of gait; Imbalance Start: 09-11-2024 End: 09-11-2024 Refill Michael Puga DO Work Phone: [facility] Comment on above: Refill Request Start: 09-08-2024 End: 09-11-2024 Telephone encounter Michael Puga DO Work Phone: [facility] Comment on above: Problem with order Start: 09-05-2024 End: 09-08-2024 Telephone encounter Michael Puga DO Work Phone: [facility] Comment on above: Patient Question Start: 08-30-2024 End: 08-30-2024 Patient encounter procedure Michael Puga DO Work Phone: [facility] Comment on above: Hypoglycemia (Primar y Dx); Restless leg; Dysthymia; Congestive heart failure, unspecified HF chronicity, unspecified heart failure type (HCC); Obstructive lung disease (HCC); Arthritis, multiple joint involvement; Gait abnormality; Chronic respiratory failure with hypoxia (HCC) Start: 08-30-2024 End: 08-30-2024 ambulatory MICHAEL PUGA Facility:[facility] Start: 08-17-2024 End: 08-17-2024 Office outpatient visit 25 minutes Asia Rosales CENTRIFUGE 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 Work Phone: [facility] Comment on above: Anxiety (Primary Dx) ; Dysthymia; Congestive heart failure, unspecified HF chronicity, unspecified heart failure type (HCC); Function kidney decreased; Obstructive lung disease (HCC); Pulmonary hypertension (HCC) Start: 08-17-2024 End: 08-17-2024 ambulatory ASIA ROSALES Facility:[facility] Start: 08-16-2024 End: 08-18-2024 Telephone encounter Michael Puga DO Work Phone: [facility] Comment on above: Patient Update Start: 07-28-2024 End: 07-28-2024 ambulatory Michael Puga [facility] Start: 07-28-2024 End: 07-28-[address] Gallo Hickey MD -[facility] Work Phone: Start: 07-07-2024 End: 07-07-2024 Patient encounter procedure [facility] [facility] Start: 07-07-2024 End: 07-07-2024 ambulatory Michael Puga DO Work Phone: [facility] [place] Comment on above: Medication Question Start: 07-07-2024 End: 07-07-2024 ambulatory Michael Puga Facility:[facility] Start: 07-03-2024 Non-patient / Non-visit Dr. Virgil ordaz MD -[facility] Start: 07-03-2024 End: 07-03-[address] Michael Puga DO Work Phone: [facility] Work Phone: Start: 07-03-2024 End: 07-03-2024 Patient encounter procedure Anabel ALVA -Cardiovascular Services Work Phone: Start: 07-03-2024 End: 07-03-2024 ambulatory Michael Puga Facility:[facility] Start: 06-26-2024 End: 07-14-2024 Telephone encounter Michael Puga DO Work Phone: [facility] [place] Comment on above: Patient Update Start: 06-22-2024 End: 06-22-2024 Patient encounter procedure Anabel ALVA -Pulmonary Services/Neurology Work Phone: Start: 06-22-2024 ambulatory Michael Puga Facilit y:[facility] Start: 06-21-2024 End: 06-21-2024 Patient encounter procedure Michael Levyrison DO Work Phone: [facility] [place] Comment on above: Obstructive lung dis ease (HCC) (Primary Dx); Thyroid disease; Pulmonary hypertension (HCC); WELCH (dyspnea on exertion); Function kidney decreased; Situational mixed anxiety and depressive disorder; Arthritis, multiple joint involvement Start: 06-21-2024 End: 06-22-2024 ambulatory Michael Puga Facility:[facility] Start: 06-16-[address] Faby Puga DO -[facility] Work Phone: Start: 06-16-2024 ambulatory Michael Puga Facilit y:[facility] Start: 06-06-2024 End: 06-06-2024 Telephone encounter Michael Puga DO Work Phone: [facility] [place] Comment on above: Results, Lab Start: 06-03-2024 ambulatory Michael Puga Facilit y:[facility] Start: 06-02-2024 End: 06-02-2024 ambulatory Michael Puga Facility:[facility] Start: 06-02-2024 End: 06-02-[address] Michael Puga DO -Home Health Lab Start: 06-01-2024 End: 06-01-2024 ambulatory Michael Puga Facility:[facility] Start: 06-01-2024 End: 06-01-[address] Gallo Hickey MD -[facility] Work Phone: Start: 05-30-2024 End: 05-31-2024 Telephone encounter Michael Puga DO Work Phone: [facility] [place] Comment on above: Results Start: 05-25-2024 End: 05-25-2024 Telephone encounter Michael Puga DO Work Phone: [facility] Comment on above: Patient Update; Medi cation Question Start: 05-25-2024 End: 05-25-[address] Michael Puga DO -Laboratory, Specimen Work Phone: Start: 05-25-2024 End: 05-25-2024 ambulatory Michael Puga Facility:[facility] Start: 05-22-2024 ambulatory Michael Puga Facilit y:[facility] Start: 05-19-2024 End: 05-19-2024 Telephone encounter Michael Puga DO Work Phone: [facility] [place] Comment on above: Results Start: 05-16-2024 End: 05-18-2024 Telephone encounter Michael Puga DO Work Phone: [facility] [place] Comment on above: Medication Update; O rders Start: 05-12-2024 End: 05-12-2024 Telephone encounter Key Portillo APRN.COUNTER WAITER Work Phone: [facility] Comment on above: Patient Question Results Start: 05-11-2024 End: 05-11-2024 Patient encounter procedure Key Portillo CENTRIFUGE 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 Work Phone: [facility] [place] Comment on above: Hospital discharge f ollow-up (Primary Dx); Congestive heart failure, unspecified HF chronicity, unspecified heart failure type (HCC); Thyroid disease; Restless leg Start: 05-11-2024 End: 05-11-2024 ambulatory KEY PORTILLO Facility:[facility] Start: 05-08-2024 End: 05-08-2024 Telephone encounter Michael Puga DO Work Phone: [facility] [place] Comment on above: Patient Update Start: 05-05-2024 End: 05-05-2024 Telephone encounter Michael Puga DO Work Phone: [facility] [place] Comment on above: Home Health Point of Care Results Start: 05-04-2024 End: 05-05-2024 Patient Outreach Michael Puga DO Work Phone: [facility] [place] Comment on above: Transition Of Longterm Health Plan of Care Refill Request Start: 05-02-2024 Non-patient / Non-visit Dr. Alyson Martinez [facility] Work Phone: Start: 05-01-2024 End: 05-01-2024 Telephone encounter Michael Puga DO Work Phone: [facility] [place] Comment on above: verbal orders [...] Telephone encounter [facility] Comment on above: Leg Pain Start: 04-20-2024 End: 04-20-2024 ambulatory Sarah Merchant PT Work Phone: [facility] Comment on above: Difficulty walking ( Primary Dx); Weakness; Imbalance Start: 04-18-2024 End: 04-18-2024 ambulatory Sarah Merchant PT Work Phone: [facility] Comment on above: Difficulty walking ( Primary Dx); Imbalance; Weakness Start: 04-10-2024 End: 04-10-2024 ambulatory MICHAEL PUGA Facility:[facility] Start: 04-10-2024 End: 04-10-2024 Patient encounter procedure Sharon Jarrett COUNTER WAITER Work Phone: General Surgery Comment on above: Other gastritis with out bleeding (Primary Dx) Start: 03-31-2024 ambulatory SHARON JARRETT Facilit y:[facility] Start: 03-31-2024 End: 03-31-2024 Subsequent hospital visit by physician Raymundo De León MD Work Phone: [facility] Endoscopy Comment on above: Epigastric abdominal pain [R10.13] Start: 03-27-2024 End: 03-27-2024 PAT Pacc [place] 1 Work Phone: Pre Anesthesia Comment on above: Pre-operative examin ation (Primary Dx); JOSE on CPAP; Obstructive lung disease (HCC); Primary hypertension; Hyperlipidemia, unspecified hyperlipidemia type; 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; Paroxysmal atrial fibrillation (HCC); Pulmonary [...] 03-27-2024 End: 03-27-2024 Preprocedural examination done Pacc [place] 1 Work Phone: [facility] Start: 03-23-2024 End: 03-23-2024 ambulatory Sarah Merchant PT Work Phone: [facility] Comment on above: Difficulty walking ( Primary Dx); Imbalance; Weakness Start: 03-20-2024 End: 03-20-2024 ambulatory Sarah Merchant PT Work Phone: [facility] Comment on above: Difficulty walking ( Primary Dx); Imbalance; Weakness Start: 03-16-2024 End: 03-16-2024 ambulatory Sarah Merchant PT Work Phone: [facility] Comment on above: Difficulty walking ( Primary Dx); Imbalance; Weakness Start: 03-14-2024 End: 03-14-2024 ambulatory Joy Morenohumaría POPE [facility] Comment on above: Difficulty walking ( Primary Dx); Imbalance; Weakness Start: 03-13-2024 End: 03-13-2024 ambulatory MICHAEL PUGA Facility:[facility] Start: 03-13-2024 End: 03-13-2024 Patient encounter procedure Sharon Jarrett APRN.COUNTER WAITER Work Phone: General Surgery Comment on above: Epigastric abdominal pain (Primary Dx); Pulmonary hypertension (HCC) Start: 03-13-2024 End: 04-03-2024 Telephone encounter Raymundo De León MD Work Phone: General Surgery Comment on above: 03-31-2024 EGD medin a Start: 03-08-2024 End: 03-09-2024 Telephone encounter Michael Puga DO Work Phone: [facility] [place] Comment on above: Wheelchair order Start: 03-02-2024 End: 03-02-2024 ambulatory Sarah Merchant PT Work Phone: [facility] Comment on above: Difficulty walking ( Primary Dx); Imbalance; Weakness Start: 03-01-2024 End: 03-01-2024 Patient encounter procedure Michael Puga DO Work Phone: [facility] [place] Comment on above: Arthritis, multiple joint involvement (Primary Dx); Anxiety; Need for influenza vaccination; Epigastric abdominal pain; Obstructive lung disease (HCC); Gait abnormality; Imbalance Start: 03-01-2024 End: 03-02-2024 Telephone encounter Michael Puga DO Work Phone: [facility] [place] Comment on above: Orders Start: 02-17-2024 End: 02-18-2024 ambulatory Sarah Merchant PT Work Phone: [facility] Comment on above: Difficulty walking ( Primary Dx); Imbalance; Weakness Start: 02-14-2024 End: 02-14-2024 ambulatory Wilfred Zeny LACE TEARING SUPERVISOR Work Phone: [facility] Comment on above: Weakness (Primary Dx ); Imbalance Start: 02-10-2024 End: 02-10-2024 ambulatory Sarahholly Merchant PT Work Phone: [facility] Comment on above: Weakness (Primary Dx ); Imbalance; Difficulty walking Start: 02-07-2024 End: 02-07-2024 ambulatory Sarah Cainamanda PT Work Phone: [facility] Comment on above: Weakness (Primary Dx ); Imbalance; Difficulty walking Start: 01-31-2024 End: 01-31-2024 ambulatory Sarah Shonda PT Work Phone: [facility] Comment on above: Weakness (Primary Dx ); Imbalance; Difficulty walking Start: 01-26-2024 End: 01-26-2024 ambulatory Wilfred Zeny LACE TEARING SUPERVISOR Work Phone: [facility] Comment on above: Weakness (Primary Dx ); Imbalance Start: 01-18-2024 End: 01-18-2024 ambulatory Sarah Shonda PT Work Phone: [facility] Comment on above: Weakness (Primary Dx ); Imbalance; Difficulty walking Start: 01-10-2024 End: 01-11-2024 Telephone encounter Michael Puga DO Work Phone: [facility] Comment on above: Wheelchair order Start: 12-13-2023 End: 12-13-2023 ambulatory Sarahholly Cainamanda PT Work Phone: [facility] Comment on above: Weakness (Primary Dx ); Difficulty walking; Imbalance Start: 12-07-2023 End: 12-07-2023 ambulatory Wilfred Zeny LACE TEARING SUPERVISOR Work Phone: [facility] Comment on above: Weakness (Primary Dx ) Start: 12-01-2023 End: 12-01-2023 Patient encounter procedure Mcihael Puga DO Work Phone: [facility] [place] Comment on above: Acute bronchitis, un specified organism (Primary Dx); Thyroid disease; Rhonchi; Obstructive lung disease (HCC); Paroxysmal atrial fibrillation (HCC); Disorder of carotid artery (HCC); Malignant melanoma of skin of trunk, except scrotum (HCC) Start: 11-26-2023 Telephone encounter Asia Lea rauldilip COUNTER WAITER Work Phone: [facility] Comment on above: Results Start: 11-25-2023 End: 11-25-2023 ambulatory Sarah Merchant PT Work Phone: [facility] Comment on above: Weakness (Primary Dx ); Difficulty walking; Imbalance Start: 11-23-2023 End: 11-23-2023 ambulatory Sarah Merchant PT Work Phone: [facility] Comment on above: Weakness (Primary Dx ); Difficulty walking; Imbalance Start: 11-15-2023 End: 11-15-2023 ambulatory Sarah Merchant PT Work Phone: [facility] Comment on above: Weakness (Primary Dx ); Difficulty walking; Imbalance Start: 10-18-2023 Refill Michael Cheema son DO Work Phone: [facility] [place] Comment on above: Refill Request Orders; Medication Q uestion Start: 10-14-2023 End: 10-14-2023 Patient encounter procedure Key Portillo MIRIAN.COUNTER WAITER Work Phone: [facility] [place] Comment on above: Hospital discharge f ollow-up (Primary Dx); Anxiety; TIA (transient ischemic attack); Hyperlipidemia, unspecified hyperlipidemia type; Sleep disturbances; Community acquired pneumonia, unspecified laterality; On supplemental oxygen therapy; Subclinical hypothyroidism; IFG (impaired fasting glucose); Primary hypertension Start: 10-11-2023 ambulatory Isabella burris RN Work Phone: Manager Loss Prevention Management Start: 10-11-2023 Telephone follow-up Isabella Michel RN Work Phone: Manager Loss Prevention Management Comment on above: Transition Of Care ( TCM OON follow up ) Weekly phone contact (Recurring) for Transitional Care Management Start: 10-06-2023 Telephone encounter Michael car DO Work Phone: [facility] Start: 10-04-2023 Patient Outreach Isabella Michel RN Work Phone: Manager Loss Prevention Management Comment on above: Transition Of Care ( TCM / [place] 10/01/OON ) Initial phone contact for Transitional Care Management HH: orders, update, medications Start: 10-01-2023 Telephone encounter Michael car DO Work Phone: [facility] Start: 04-05-2023 End: 04-05-2023 Patient encounter procedure Michael Alyssa Puga DO Work Phone: [facility] Comment on above: Subclinical hypothyr [...] scrotum (HCC) Start: 03-31-2023 Telephone encounter Michael Carlos irmasky Work Phone: [facility] Comment on above: Patient Question Start: 01-11-2023 Telephone encounter Michael Carlos irmasky DO Work Phone: [facility] Comment on above: Orders Start: 12-30-2022 Telephone encounter Michael Carlos irmasky DO Work Phone: [facility] [place] Comment on above: Results Start: 12-28-2022 End: 12-28-2022 Subsequent hospital visit by physician Mile [facility] [place] Work Phone: Radiology Comment on above: WELCH (dyspnea on exer tion) [R06.09] Start: 12-28-2022 End: 12-28-2022 ambulatory Pulm Lab [facility] Work Phone: PULM LAB [facility] Comment on above: Spirometry Start: 12-28-2022 End: 12-28-2022 Patient encounter procedure Pulm Lab [facility] Work Phone: [facility] Start: 12-22-2022 End: 12-22-2022 Patient encounter procedure Michael Puga DO Work Phone: [facility] [place] Comment on above: WELCH (dyspnea on exer tion) (Primary Dx); Fatigue, unspecified type; Obesity, Class II, BMI 35-39.9; IFG (impaired fasting glucose); Vitamin B12 deficiency; Primary hypertension; Disorder of carotid artery (HCC) Start: 09-29-2022 Refill Michael ochoa DO Work Phone: [facility] [place] Comment on above: Refill Request Start: 06-29-2022 Refill Michael ochoa DO Work Phone: [facility] [place] Comment on above: Refill Request Start: 06-22-2022 End: 06-22-2022 Patient encounter procedure Michael Puga DO Work Phone: [facility] [place] Comment on above: Iron deficiency (Lisa radha Dx); Fatigue, unspecified type; SOB (shortness of breath) on exertion; IFG (impaired fasting glucose); Vitamin D deficiency; Vitamin B12 deficiency; Hyperlipidemia, unspecified hyperlipidemia type; Primary hypertension; Obesity, Class II, BMI 35-39.9; Arthritis, multiple joint involvement Start: 06-10-2022 Telephone encounter Key ochoa CENTRIFUGE 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 Work Phone: [facility] [place] Comment on above: Results Start: 06-08-2022 Telephone encounter Key ochoa CENTRIFUGE 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 Work Phone: [facility] [place] Comment on above: Results Start: 06-05-2022 Telephone encounter Michael Carlos irmasky DO Work Phone: [facility] [place] Comment on above: Medication Problem Start: 06-04-2022 End: 06-04-2022 Patient encounter procedure Key Portillo CENTRIFUGE 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 Work Phone: [facility] [place] Comment on above: Fatigue, unspecified type (Primary Dx); SOB (shortness of breath) on exertion; Hyperlipidemia, unspecified hyperlipidemia type; Obesity, Class II, BMI 35-39.9; IFG (impaired fasting glucose); Iron deficiency anemia, unspecified iron deficiency anemia type; Vitamin D deficiency; Bilateral leg edema; Primary hypertension Start: 06-02-2022 ambulatory Anita Phyllis Box MA [facility] [place] Comment on above: Population Health Na vigation Outreach (Healthy at Home - [facility] ) Extreme fatigue Start: 04-27-2022 Telephone encounter Michael car DO Work Phone: [facility] [place] Comment on above: Patient Question Start: 04-21-2022 End: 04-21-2022 Patient encounter procedure Michael Puga DO Work Phone: [facility] [place] Comment on above: Dysthymia (Primary D x); Situational insomnia; Arthritis, multiple joint involvement; IFG (impaired fasting glucose); Obesity, Class II, BMI 35-39.9; Fatigue, unspecified type; Iron deficiency Start: 02-16-2022 End: 02-16-2022 Patient encounter procedure Mcihael Puga DO Work Phone: [facility] [place] Comment on above: Dysthymia (Primary [...] 25 minutes Nunu Gonzalez PA-C Work Phone: [facility] Comment on above: Urinary frequency (P rimary Dx); Glucosuria Start: 09-10-2021 End: 09-10-[address] Michael Puga Work Phone: [facility]-Laboratory Start: 08-06-2021 Refill July Dias Work Phone: General Surgery Comment on above: Refill Request Start: 06-19-2021 Telephone encounter Asia Lea gordoderick RONNIE Work Phone: [facility] Comment on above: Results Start: 06-16-2021 End: 06-16-[address] Michael Puga Work Phone: [facility] Start: 06-09-2021 End: 06-09-2021 Admission to same day surgery center Dr. Michael Puga Work Phone: [facility]-Regulatory Affairs Specialist/Special Procedures Start: 06-02-2021 End: 06-02-[address] Michael Puga Work Phone: [facility]-Radiology, [facility] Start: 06-02-2021 End: 06-02-[address] Michael Puga Work Phone: [facility] Start: 12-21-2020 End: 12-21-2020 Emergency department patient visit Kat Gleason [facility] Procedures Date Procedure Procedure Detail Performing Clinician Start: 02-05-2025 Mean corpuscular hemoglobin concentration determination Dr. Michael Puga DO Work Phone: Start: 02-05-[address] Michael Puga DO Work Phone: Start: 02-05-2025 Nucleated red blood cell count procedure Dr. Michael Puga DO Work Phone: Start: 02-05-2025 Platelet mean volume determination Dr. Augusta Puga DO Work Phone: Start: 02-05-2025 Radiologic exam chest [address] Michael Puga DO Work Phone: Start: 01-23-2025 Blood count smear mcrscp w/mnl difrntl wbc count Dr. Michael Puga DO Work Phone: Start: 01-23-2025 Mean corpuscular hemoglobin concentration determination Dr. Michael Puga DO Work Phone: Start: 01-23-[address] Michael Puga DO Work Phone: Start: 01-23-2025 Nucleated red blood cell count procedure Dr. Michael Puga DO Work Phone: Start: 01-23-2025 Platelet mean volume determination Dr. Augusta Puga DO Work Phone: Start: 01-23-2025 Total iron binding capacity measurement Dr. Michael Puga DO Work Phone: Start: 01-01-[address] Faby Puga DO Work Phone: Start: 12-31-2024 Blood count smear mcrscp w/mnl difrntl wbc count Dr. Michael Puga DO Work Phone: Start: 12-31-2024 Mean corpuscular hemoglobin concentration determination Dr. Michael Puga DO Work Phone: Start: 12-31-[address] Michael Puga DO Work Phone: Start: 12-31-2024 Nucleated red blood cell count procedure Dr. Michael Puga DO Work Phone: Start: 12-31-2024 Platelet mean volume determination Dr. Augusta Puga DO Work Phone: Start: 12-30-[address] Michael hope DO Work Phone: Start: 12-30-2024 Serum inorganic phosphate measurement Dr. Michael Puga DO Work Phone: Start: 12-30-2024 Total cholesterol:HDL ratio measurement Dr. Michael Puga DO Work Phone: Start: 12-30-[address] Michael tam DO Work Phone: Start: 12-29-2024 X-ray of chest, PA and lateral views Dr. Michael Puga DO Work Phone: Start: 12-29-2024 Blood count smear mcrscp w/mnl difrntl wbc count Dr. Michael Puga DO Work Phone: Start: 12-29-[address] Faby Puga DO Work Phone: Start: 12-29-2024 Mean corpuscular hemoglobin concentration determination Dr. Michael Puga DO Work Phone: Start: 12-29-2024 Nucleated red blood cell count procedure Dr. Michael Puga DO Work Phone: Start: 12-29-2024 Platelet mean volume determination Dr. Augusta Puga DO Work Phone: Start: 12-23-2024 Blood count smear mcrscp w/mnl difrntl wbc count Dr. Michael Puga DO Work Phone: Start: 12-23-2024 Mean corpuscular hemoglobin concentration determination Dr. Michael Puga DO Work Phone: Start: 12-23-[address] Michael Puga DO Work Phone: Start: 12-23-2024 Nucleated red blood cell count procedure Dr. Michael Puga DO Work Phone: Start: 12-23-2024 Platelet mean volume determination Dr. Augusta Puga DO Work Phone: Start: 12-23-2024 Plain chest X-ray Dr. Michael Puga DO Work Phone: Start: 12-20-2024 Blood count smear mcrscp w/mnl difrntl wbc count Dr. Michael Puga DO Work Phone: Start: 12-20-2024 Mean corpuscular hemoglobin concentration determination Dr. Michael Puga DO Work Phone: Start: 12-20-[address] Michael Puga DO Work Phone: Start: 12-20-2024 Nucleated red blood cell count procedure Dr. Michael Puga DO Work Phone: Start: 12-20-2024 Platelet mean volume determination Dr. Augusta Puga DO Work Phone: Start: 12-12-[address] Faby Puga DO Work Phone: Start: 12-12-2024 Osmolality measurement, serum Dr. Michael Puga DO Work Phone: Start: 12-05-2024 Measurement of occult blood in stool specimen using immunoassay Dr. Michael Puga DO Work Phone: Start: 12-04-2024 Urea nitrogen measurement, urine Dr. Vance Puga DO Work Phone: Start: 12-04-2024 Blood count smear mcrscp w/mnl difrntl wbc count Dr. Michael Puga DO Work Phone: Start: 12-04-2024 Mean corpuscular hemoglobin concentration determination Dr. Michael Puga DO Work Phone: Start: 12-04-[address] Michael Puga DO Work Phone: Start: 12-04-2024 Nucleated red blood cell count procedure Dr. Michael Puga DO Work Phone: Start: 12-04-2024 Platelet mean volume determination Dr. Augusta Puga DO Work Phone: Start: 12-04-2024 Serum inorganic phosphate measurement Dr. Michael Puga DO Work Phone: Start: 12-03-[address] Faby Puga DO Work Phone: Start: 12-03-2024 Mean corpuscular hemoglobin concentration determination Dr. Michael Puga DO Work Phone: Start: 12-03-2024 Platelet mean volume determination Dr. Augusta Puga DO Work Phone: Start: 12-02-2024 Blood count smear mcrscp w/mnl difrntl wbc count Dr. Michael Puga DO Work Phone: Start: 12-02-[address] Michael Puga DO Work Phone: Start: 12-02-2024 Nucleated red blood cell count procedure Dr. Michael Puga DO Work Phone: Start: 11-30-2024 CT of head without contrast Dr. Michael car DO Work Phone: Start: 11-30-2024 Benzodiazepine measurement, urine Dr. Nellie Puga DO Work Phone: Start: 11-30-2024 Cocaine measurement, urine Dr. Michael valles DO Work Phone: Start: 11-30-2024 Methadone measurement, urine Dr. Michael Puga DO Work Phone: Start: 11-30-[address] Michael Puga DO Work Phone: Start: 11-30-[address] Michael swanson DO Work Phone: Start: 11-30-[address] Michael hope DO Work Phone: Start: 11-30-2024 Serum inorganic phosphate measurement Dr. Michael Puga DO Work Phone: Start: 11-30-2024 Total cholesterol:HDL ratio measurement Dr. Michael Puga DO Work Phone: Start: 11-30-[address] Michael tam DO Work Phone: Start: 11-29-[address] Faby Puga DO Work Phone: Start: 11-29-[address] Augusta Puga DO Work Phone: Start: 11-29-2024 Urine microscopy: red cells Dr. Michael car DO Work Phone: Start: 11-29-2024 Urnls dip stick/tablet reagent auto microscopy Dr. Michael Puga DO Work Phone: Start: 11-29-2024 CT of head without contrast Dr. Michael car DO Work Phone: Start: 10-31-2024 Blood count smear mcrscp w/mnl difrntl wbc count Dr. Michael Puga DO Work Phone: Start: 10-31-2024 Mean corpuscular hemoglobin concentration determination Dr. Michael Puga DO Work Phone: Start: 10-31-[address] Michael Puga DO Work Phone: Start: 10-31-2024 Nucleated red blood cell count procedure Dr. Michael Puga DO Work Phone: Start: 10-31-2024 Platelet mean volume determination Dr. Augusta Puga DO Work Phone: Start: 10-31-2024 X-ray of [...] Start: 03-31-2024 Esophagogastroduodenoscopy transoral diagnostic Sharon Jarrett CENTRIFUGE 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 Work Phone: Start: 04-05-2023 [employer] COVID-19 VACCINE ( SEASON) AGE 12+ YR Michael Puga DO [...] Urnls dip stick/tablet rgnt auto w/o microscopy Cas Clay CENTRIFUGE 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 Work Phone: Start: 06-02-2021 Plain chest X-ray Dr. Michael Puga Work Phone: Start: 12-21-2020 End: 12-21-2020 EKG impression Bernie Barajas Start: 12-03-2016 End: 12-03-2016 Pm device progr eval, dual Galloalyssa Hickey MD Start: 10-22-2016 End: 10-22-2016 Follow Up Appt 6 months Loli Knapp Start: 10-22-2016 End: 10-22-2016 MMLoli Hickey MD Start: 06-03-2016 End: 06-03-2016 Pm device progr eval, dual Gallo Hickey MD Start: 04-15-2016 End: 04-15-2016 Dietary management education, guidance, and counseling Delisa Juárez RN Start: 04-15-2016 End: 04-15-2016 CUSTOMER EXPERIENCE STRATEGIST Anabel Horne PA-C Work Phone: Start: 04-15-2016 [...] Gallo Hickey MD Start: 11-22-2014 End: 11-22-2014 CUSTOMER EXPERIENCE STRATEGIST Anabel Horne PA-C Work Phone: Start: 11-22-2014 [...] Start: 07-25-2014 End: 07-25-2014 Pm device progr isauro sheldon MD Start: 05-25-2014 End: 05-26-2014 Documentation of current medications Gallo Hickey MD Start: 05-25-2014 End: 11-07-2014 Follow Up Appt 6 months Loli Knapp Start: 05-25-2014 End: 05-25-2014 MMM Gallo Hickey MD Start: 05-25-2014 End: 11-07-2014 Pacer Clinic Gallo Hickey MD Start: 05-25-2014 End: 05-25-2014 Pm device isauro martinez MD Start: 01-26-2014 End: 11-07-2014 Follow Up Appt 6 months Loli Knapp Start: 01-26-2014 End: 11-07-2014 Pacer Clinic Gallo Hickey MD Start: 01-26-2014 End: 01-26-2014 Pm device progr isauro sheldon MD Start: 11-22-2013 End: 11-22-2013 DELORES Horne PAJoselitoC Work Phone: Start: 11-22-2013 End: 11-22-2013 Follow [...] Start: 07-18-2013 End: 07-19-2013 Pm device progr wayneal, dual Gallo Hickey MD Start: 05-24-2013 End: 05-26-2013 *BMP Anabel Horne PA-C Work Phone: Start: 05-24-2013 End: 05-24-2013 CUSTOMER EXPERIENCE STRATEGIST Anabel Horne PA-C Work Phone: Start: 05-24-2013 End: 05-24-2013 Follow Up Appt 6 months Anabel Horne PA-C Work Phone: Start: 05-24-2013 End: 07-18-2013 Follow Up Appt Other Anabel Horne PA-C Work Phone: Start: 04-10-2013 End: 05-16-2013 Follow Up Appt 3 months Loli Knapp Start: 04-10-2013 End: 05-16-2013 Pacer Clinic Gallo Hickey MD Start: 04-10-2013 End: 04-10-2013 Pm device progr eval, isauro Hickey MD Start: 12-07-2012 End: 05-16-2013 Follow Up Appt 3 months Loli Knapp Start: 12-07-2012 End: 05-16-2013 Pacer Clinic Gallo Hickey MD Start: 12-07-2012 End: 05-16-2013 Pm device progr wayneal, isauro Hickey MD Start: 11-15-2012 End: 11-15-2012 Follow [...] DTaP,Tdap,Td Vaccine (3 - Td or Tdap) [facility] Start: 08-31-2027 Diabetes Screening Diabetes Screening [facility] Start: 05-11-2027 Diabetes Screening Diabetes Screening [facility] Start: 11-24-2026 Diabetes Screening Diabetes Screening [facility] Start: 03-31-2026 Diabetes Screening Diabetes Screening [facility] Start: 12-15-2025 DIABETES SCREEN DIABETES SCREEN [facility] Start: 12-15-2025 Diabetes Screening Diabetes Screening [facility] Start: 09-17-2025 DIABETES SCREEN DIABETES SCREEN [facility] Start: 06-04-2025 DIABETES SCREEN DIABETES SCREEN [facility] Start: 02-13-2025 DIABETES SCREEN DIABETES SCREEN [facility] Start: 02-05-2025 End: 02-05-2025 Evaluation of diagnostic study results [facility] Start: 01-23-2025 [facility] Start: 01-01-2025 Influenza vaccination [facility] Start: 01-01-2025 Patient discharge [facility] Start: 12-30-2024 Referral to service [facility] Start: 12-29-2024 Following clinical pathway protocol [facility] Start: 12-29-2024 Ambulation without limitation [facility] Start: 12-29-2024 Application of elastic bandage [facility] Start: 12-29-2024 Assessment of risk of venous thromboembolism [facility] Start: 12-29-2024 Elevation of affected extremity [facility] Start: 12-29-2024 Insertion of catheter into peripheral vein [facility] Start: 12-29-2024 Measuring intake and output [facility] Start: 12-29-2024 Notification of physician [facility] Start: 12-29-2024 Oxygen therapy [facility] Start: 12-29-2024 Patient education [facility] Start: 12-29-2024 Providing care according to standard [facility] Start: 12-29-2024 Referral for physical therapy [facility] Start: 12-29-2024 Referral to occupational therapist [facility] Start: 12-29-2024 Referral to service [facility] Start: 12-29-2024 End: 12-29-2024 [facility] Start: 12-29-2024 Verification routine [facility] Start: 12-29-2024 Hospital admission, emergency, from emergency room, medical nature [facility] Start: 12-29-2024 Admission procedure [facility] Start: 12-29-2024 [facility] Start: 12-23-2024 [facility] Start: 12-23-2024 [facility] Start: 12-20-2024 End: 12-20-2024 Patient encounter procedure 12/20/2024 2:30 PM EDT Office Visit General Surgery [address] [place] [address] Sharon Jarrett APRN.COUNTER WAITER [address] [place] [address] EGD & colonoscopy consult, blood in stool General Surgery Comment on above: EGD & colonoscopy consult, blood in stoo l Start: 12-14-2024 Patient discharge [facility] Start: 12-11-2024 Referral to service [facility] Start: 12-11-2024 [facility] Start: 12-08-2024 End: 12-08-2024 Patient encounter procedure 12/08/2024 2:40 PM EDT Office Visit Family Medicine [facility] [address] [place] [address] Michael Puga, [address] [place] [address] 3 month follow up [facility] Comment on above: 3 month follow up Start: 12-06-2024 Patient referral to dietitian [facility] Start: 12-05-2024 [facility] Start: 12-05-2024 Following clinical pathway protocol [facility] Start: 12-05-2024 Speech therapy assessment [facility] Start: 12-05-2024 [facility] Start: 12-05-2024 Catheterization of vein [facility] Start: 12-04-2024 [facility] Start: 12-04-2024 Verification routine [facility] Start: 12-04-2024 Application of elastic bandage [facility] Start: 12-03-2024 Recommendation to continue with treatment [facility] Start: 12-03-2024 Referral for physical therapy [facility] Start: 12-03-2024 Referral to service [facility] Start: 12-03-2024 Urinary bladder training [facility] Start: 12-03-2024 Admission procedure [facility] Start: 12-03-2024 Measuring intake and output [facility] Start: 12-03-2024 End: 12-04-2024 Patient referral to dietitian [facility] Start: 12-03-2024 Vital signs measurements [facility] Start: 12-03-2024 [facility] Start: 12-03-2024 Referral to occupational therapist [facility] Start: 12-03-2024 Patient discharge [facility] Start: 12-03-2024 Continuous positive airway pressure ventilation treatment [facility] Start: 12-01-2024 Physiotherapy of chest [facility] Start: 11-30-2024 Inhalation therapy procedure [facility] Start: 11-29-2024 Application of intermittent pneumatic compression device [facility] Start: 11-29-2024 Following clinical pathway protocol [facility] Start: 11-29-2024 Assessment of risk of venous thromboembolism [facility] Start: 11-29-2024 Catheterization of vein [facility] Start: 11-29-2024 Insertion of catheter into peripheral vein [facility] Start: 11-29-2024 Measuring intake and output [facility] Start: 11-29-2024 Oxygen therapy [facility] Start: 11-29-2024 Providing care according to standard [facility] Start: 11-29-2024 Provision of activity privileges [facility] Start: 11-29-2024 Referral for physical therapy [facility] Start: 11-29-2024 Referral to occupational therapist [facility] Start: 11-29-2024 Referral to service [facility] Start: 11-29-2024 [facility] Start: 11-29-2024 MRI of brain without contrast Brain without Contrast [facility] Start: 11-29-2024 Verification routine [facility] Start: 11-29-2024 Admission procedure [facility] Start: 11-29-2024 Hospital admission, emergency, from emergency room, medical nature [facility] Start: 11-29-2024 Thyroid stimulating hormone measurement [facility] Start: 11-29-2024 Patient referral to dietitian [facility] Start: 10-27-2024 End: 10-27-2024 Patient encounter procedure 10/27/2024 12:45 PM EDT OT/PT/Speech Visit [facility] [address] [place] [address] Sarah Merchant, PT [address] [place], [place] [phone] CONSULT/WEAKNESS [facility] Comment on above: CONSULT/WEAKNESS Start: 10-18-2024 End: 10-18-2024 Patient encounter procedure 10/18/2024 1:30 PM EDT OT/PT/Speech Visit [facility] [address] [place] [address] Wilfred Mcclellan, LACE TEARING SUPERVISOR [address] [place], [place] [phone] CONSULT/WEAKNESS [facility] Comment on above: CONSULT/WEAKNESS Start: 10-13-2024 Covid-19 Vaccine ( season) Covid-19 Vaccine ( season) [facility] Comment on above: Postponed from 08/05/2023 (Declined at t his time) Start: 10-13-2024 RSV Vaccine (1 - 1-dose 60+ series) RSV Vaccine (1 - 1-dose 60+ series) [facility] Comment on above: Postponed from 2001 (Declined at t his time) Start: 10-13-2024 RSV Vaccine (1 - 1-dose 75+ series) RSV Vaccine (1 - 1-dose 75+ series) [facility] Comment on above: Postponed from 2016 (Declined at t his time) Start: 10-09-2024 End: 10-09-2024 Patient encounter procedure 10/09/2024 12:45 PM EDT OT/PT/Speech Visit [facility] [address] [place] [address] Joy Sun PTA CONSULT/WEAKNESS [facility] Comment on above: CONSULT/WEAKNESS Start: 10-02-2024 End: 10-02-2024 Patient encounter procedure 10/02/2024 3:00 PM EDT OT/PT/Speech Visit [facility] [address] [place] [address] Pj Bledsoe, PT [address] [place] [address] CONSULT/WEAKNESS [facility] Comment on above: CONSULT/WEAKNESS Start: 09-28-2024 End: 09-28-2024 Patient encounter procedure 09/28/2024 2:15 PM EDT OT/PT/Speech Visit [facility] [address] [place] [address] Sarah Merchant, PT [address] [place] [address] CONSULT/WEAKNESS [facility] Comment on above: CONSULT/WEAKNESS Start: 08-30-2024 End: 08-30-2024 Patient encounter procedure 08/30/2024 3:00 PM EDT Office Visit Family Medicine [facility] [address] [place] [address] Michael Puga, DO [address] [place] [address] 6 month follow up [facility] Comment on above: 6 month follow up Start: 07-10-2024 End: 07-10-2024 Patient encounter procedure 07/10/2024 3:20 PM EDT Office Visit [facility] [place] [address] [place], [place] [phone] Key Portillo, CENTRIFUGE 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 [address] [place], [place] [phone] Requesting increase in Paxil [facility] Comment on above: Requesting increase in Paxil Start: 06-21-2024 End: 06-21-2024 Patient encounter procedure 06/21/2024 5:20 PM EST Office Visit [facility] [place] [address] [place] [address] Michael Puga DO [address] [facility] [place] [address] 6 wk f/u labs and meds [facility] Comment on above: 6 wk f/u labs and meds Start: 05-26-2024 End: 08-25-2024 Comprehensive metabolic 2000 panel - Serum or Plasma COMPREHENSIVE METABOLIC PANEL Lab Routine Function kidney decreased Congestive heart failure, unspecified HF chronicity, unspecified heart failure type (HCC) Expected: 05/26/2024, Expires: 08/25/2024 [facility] Comment on above: Expected: 05/26/2024, Expires: Start: 05-26-2024 End: 08-25-2024 Natriuretic peptide.B prohormone N-Terminal [Mass/volume] in Serum or Plasma NT PRO BNP Lab Routine Function kidney decreased Congestive heart failure, unspecified HF chronicity, unspecified heart failure type (HCC) Expected: 05/26/2024, Expires: 08/25/2024 [facility] Work Phone: Comment on above: Expected: 05/26/2024, Expires: Start: 05-19-2024 End: 08-18-2024 CBC W Auto Differential panel - Blood COMPLETE BLOOD COUNT AND DIFFERENTIAL Lab Routine Congestive heart failure, unspecified HF chronicity, unspecified heart failure type (HCC) Function kidney decreased Expected: 05/19/2024, Expires: 08/18/2024 [facility] Comment on above: Expected: 05/19/2024, Expires: Start: 05-19-2024 End: 08-18-2024 Hepatic function 2000 panel - Serum or Plasma HEPATIC FUNCTION PNL Lab Routine Congestive heart failure, unspecified HF chronicity, unspecified heart failure type (HCC) Function kidney decreased Expected: 05/19/2024, Expires: 08/18/2024 [facility] Work Phone: Comment on above: Expected: 05/19/2024, Expires: Start: 05-19-2024 End: 08-18-2024 Natriuretic peptide.B prohormone N-Terminal [Mass/volume] in Serum or Plasma NT PRO BNP Lab Routine Congestive heart failure, unspecified HF chronicity, unspecified heart failure type (HCC) Function kidney decreased Expected: 05/19/2024, Expires: 08/18/2024 [facility] Comment on above: Expected: 05/19/2024, Expires: Start: 05-17-2024 End: 08-16-2024 Comprehensive metabolic 2000 panel - Serum or Plasma COMPREHENSIVE METABOLIC PANEL Lab STAT Function kidney decreased Congestive heart failure, unspecified HF chronicity, unspecified heart failure type (HCC) Expected: 05/17/2024, Expires: 08/16/2024 [facility] Work Phone: Comment on above: Expected: 05/17/2024, Expires: Start: 05-11-2024 End: 08-10-2024 Comprehensive metabolic 2000 panel - Serum or Plasma [facility] Comment on above: Expected: 05/11/2024, Expires: Start: 05-11-2024 End: 08-10-2024 Natriuretic peptide.B prohormone N-Terminal [Mass/volume] in Serum or Plasma [facility] Comment on above: Expected: 05/11/2024, Expires: Start: 05-11-2024 End: 08-10-2024 Thyrotropin [Units/volume] in Serum or Plasma [facility] Work Phone: Comment on above: Expected: 05/11/2024, Expires: Start: 05-11-2024 End: 08-10-2024 Thyroxine (T4) free [Mass/volume] in Serum or Plasma [facility] Comment on above: Expected: 05/11/2024, Expires: Start: 05-11-2024 End: 05-11-2024 Patient encounter procedure 05/11/2024 1:00 PM EST Office Visit Family [facility] [place] [address] [place] [address] Key Portillo, CENTRIFUGE 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 [address] [place] [address] TCM. [facility] Hosp f/u discharged 05-02-24. CHF [facility] [place] Comment on above: TCM. [facility] Hosp f/u discharged 05-02-24. C HF Start: 05-04-2024 End: 05-04-2024 Patient encounter procedure 05/04/2024 1:00 PM EST Office Visit [facility] [address] [place] [address] Key Portillo, CENTRIFUGE 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 [address] [place] [address] right leg pain x 2 weeks [facility] Comment on above: right leg pain x 2 weeks Start: 05-03-2024 Advance Directive Discussion Advance Directive Discussion [facility] Start: 05-02-2024 Patient discharge [facility] Start: 05-01-2024 End: 05-01-2024 Patient encounter procedure 05/01/2024 2:15 PM EST OT/PT/Speech Visit [facility] [address] [place] [address] Sarah Merchant, PT [address] [place] [address] Right knee (referral in scanned docs) [facility] Comment on above: Right knee (referral in scanned docs) Start: 05-01-2024 Referral to service [facility] Start: 04-30-2024 End: 05-01-2024 [facility] Start: 04-30-2024 Dual pressure spontaneous ventilation support [facility] Start: 04-30-2024 Following clinical pathway protocol [facility] Start: 04-30-2024 Continuous pulse oximetry [facility] Start: 04-30-2024 Assessment of risk of venous thromboembolism [facility] Start: 04-30-2024 Elevation of affected extremity [facility] Start: 04-30-2024 Fall prevention [facility] Start: 04-30-2024 Inhalation therapy procedure [facility] Start: 04-30-2024 Insertion of catheter into peripheral vein [facility] Start: 04-30-2024 Introduction of urinary catheter [facility] Start: 04-30-2024 Measuring intake and output [facility] Start: 04-30-2024 Notification of physician [facility] Start: 04-30-2024 Oxygen therapy [facility] Start: 04-30-2024 Patient education [facility] Start: 04-30-2024 Patient referral to dietitian [facility] Start: 04-30-2024 Providing care according to standard [facility] Start: 04-30-2024 Provision of activity privileges [facility] Start: 04-30-2024 Referral to occupational therapist [facility] Start: 04-30-2024 Referral to service [facility] Start: 04-30-2024 Admission procedure [facility] Start: 04-27-2024 End: 04-27-2024 Patient encounter procedure 04/27/2024 11:40 AM EST Office Visit Family [facility] [address] [place] [address] Key Portillo, CENTRIFUGE OPERATOR.[facility] [address] [place] [address] right leg pain x 2 weeks [facility] Comment on above: right leg pain x 2 weeks Start: 04-20-2024 End: 04-20-2024 Patient encounter procedure [facility] Comment on above: Right knee (referral in scanned docs) Start: 04-18-2024 End: 04-18-2024 Patient encounter procedure 04/18/2024 1:30 PM EST OT/PT/Speech Visit [facility] [address] [place] [address] Sarah Merchant, PT [address] [place] [address] Right knee (referral in scanned docs) [facility] Comment on above: Right knee (referral in scanned docs) Start: 03-31-2024 End: 03-31-2024 Patient encounter procedure 03/31/2024 1:15 PM EST Appointment [facility] [address] [place] [address] Raymundo De León MD [address] [place] [address] [facility] Start: 03-31-2024 Subsequent hospital visit by physician 03/31/2024 10:10 AM EST Hospital Encounter [facility] [address] [place] [address] Raymundo De León MD [address] [place] [address] Yvonne Manley MD [address] [place] [address] Kelsea Mo APRN.ANGLE DOZER OPERATOR Epigastric abdominal pain [R10.13] [facility] Comment on above: Epigastric abdominal pain [R10.13] Start: 03-27-2024 End: 03-27-2024 Anesthesia consultation 03/27/2024 2:20 PM EST PAT Pre Anesthesia [address] [place] [address] 1, [facility] [place] [address] [place] [address] EGD Pre Anesthesia Comment on above: EGD Start: 03-23-2024 End: 03-23-2024 Patient encounter procedure 03/23/2024 12:45 PM EST OT/PT/Speech Visit [facility] [address] [place] [id number] Sarah Merchant, PT [address] [place], [place] [phone] Right knee (referral in scanned docs) [facility] Comment on above: Right knee (referral in scanned docs) Start: 03-20-2024 End: 03-20-2024 Patient encounter procedure 03/20/2024 2:15 PM EST OT/PT/Speech Visit [facility] [address] [place], [place] [phone] Sarah Merchant, PT [address] [place], [place] [phone] Right knee (referral in scanned docs) [facility] Comment on above: Right knee (referral in scanned docs) Start: 03-16-2024 End: 03-16-2024 Patient encounter procedure 03/16/2024 12:45 PM EST OT/PT/Speech Visit [facility] [address] [place] [address] Sarah Merchant, PT [address] [place], [place] [phone] Right knee (referral in scanned docs) [facility] Comment on above: Right knee (referral in scanned docs) Start: 03-14-2024 End: 03-14-2024 Patient encounter procedure 03/14/2024 10:00 AM EST OT/PT/Speech Visit [facility] [address] [place] [address] Joy Sun LACE TEARING SUPERVISOR Right knee (referral in scanned docs) [facility] Comment on above: Right knee (referral in scanned docs) Start: 03-13-2024 End: 03-13-2024 Patient encounter procedure General Surgery Comment on above: Epigastric abdominal pain [R10.13] Epigastric abdominal pain [R10.13] - left VM stating she will be seeing Kimberlee and not Dr de león Start: 03-08-2024 End: 03-08-2024 Patient encounter procedure 03/08/2024 12:45 PM EST OT/PT/Speech Visit [facility] [address] [place] [address] Joy Sun LACE TEARING SUPERVISOR Right knee (referral in scanned docs) [facility] Comment on above: Right knee (referral in scanned docs) Start: 03-02-2024 End: 03-02-2024 Patient encounter procedure 03/02/2024 12:45 PM EDT OT/PT/Speech Visit [facility] [address] [place] [address] Sarah Merchant, PT [address] [place], [place] [phone] Right knee (referral in scanned docs) [facility] Comment on above: Right knee (referral in scanned docs) Start: 03-01-2024 End: 03-01-2024 Patient encounter procedure 03/01/2024 5:40 PM EDT Office Visit [facility] [place] [address] [facility], [place] [id number] Michael Puga, [address] [facility], [place] [id number] 3 month follow up [facility] Comment on above: 3 month follow up Start: 02-17-2024 End: 02-17-2024 Patient encounter procedure 02/17/2024 3:45 PM EDT OT/PT/Speech Visit [facility] [address] [place] [address] Sarah Merchant, PT [address] [place], [place] [phone] Right knee (referral in scanned docs) [facility] Comment on above: Right knee (referral in scanned docs) Start: 02-14-2024 End: 02-14-2024 Patient encounter procedure 02/14/2024 1:30 PM EDT OT/PT/Speech Visit [facility] [address] [place] [address] Wilfred Mcclellan, LACE TEARING SUPERVISOR [address] [place] [address] Right knee (referral in scanned docs) [facility] Comment on above: Right knee (referral in scanned docs) Start: 02-10-2024 End: 02-10-2024 Patient encounter procedure 02/10/2024 12:45 PM EDT OT/PT/Speech Visit [facility] [address] [place] [address] Sarah Merchant, PT [address] [place] [address] Right knee (referral in scanned docs) [facility] Comment on above: Right knee (referral in scanned docs) Start: 02-07-2024 End: 02-07-2024 Patient encounter procedure 02/07/2024 2:15 PM EDT OT/PT/Speech Visit [facility] [address] [place] [address] Sarah Merchant, PT [address] [place], [place] [phone] Right knee (referral in scanned docs) [facility] Comment on above: Right knee (referral in scanned docs) Start: 02-03-2024 End: 02-03-2024 Patient encounter procedure 02/03/2024 3:45 PM EDT OT/PT/Speech Visit [facility] [address] [place] [address] Sarah Merchant, PT [address] [place], [place] [phone] Right knee (referral in scanned docs) [facility] Comment on above: Right knee (referral in scanned docs) Start: 01-31-2024 End: 01-31-2024 Patient encounter procedure 01/31/2024 2:15 PM EDT OT/PT/Speech Visit [facility] [address] [place] [address] Sarah Merchant, PT [address] [place], [place] [phone] Right knee (referral in scanned docs) [facility] Comment on above: Right knee (referral in scanned docs) Start: 01-26-2024 End: 01-26-2024 Patient encounter procedure 01/26/2024 3:00 PM EDT OT/PT/Speech Visit [facility] [address] [place] [address] Wilfred Mcclellan, LACE TEARING SUPERVISOR [address] [place], [place] [phone] Right knee (referral in scanned docs) [facility] Comment on above: Right knee (referral in scanned docs) Start: 01-18-2024 End: 01-18-2024 Patient encounter procedure 01/18/2024 1:30 PM EDT OT/PT/Speech Visit [facility] [address], [place] [phone] Sarah Merchant, PT [address] [place], [place] [phone] RECHECK Right knee (referral in scanned docs) [facility] Comment on above: RECHECK Right knee (referral in scanned docs) Start: 01-17-2024 DIABETES SCREEN DIABETES SCREEN [facility] Start: 01-02-2024 Covid-19 Vaccine () Covid-19 Vaccine () [facility] Start: 01-02-2024 Covid-19 Vaccine () Covid-19 Vaccine () [facility] Start: 01-02-2024 Influenza vaccination Influenza Vaccine (#1) [facility] Start: 12-16-2023 End: 12-16-2023 Patient encounter procedure [facility] Comment on above: Right knee (referral in scanned docs) RECHECK Right knee ( referral in scanned docs) Start: 12-13-2023 End: 12-13-2023 Patient encounter procedure 12/13/2023 3:45 PM EDT OT/PT/Speech Visit [facility] [address] [place] [address] Sarah Merchant, PT [address] [place], [place] [phone] Right knee (referral in scanned docs) [facility] Comment on above: Right knee (referral in scanned docs) Start: 12-07-2023 End: 12-07-2023 Patient encounter procedure 12/07/2023 4:30 PM EDT OT/PT/Speech Visit [facility] [address], [place] [phone] Wilfred Mcclellan, LACE TEARING SUPERVISOR [address] [place], [place] [phone] Right knee (referral in scanned docs) [facility] Comment on above: Right knee (referral in scanned docs) Start: 12-02-2023 End: 12-02-2023 Patient encounter procedure 12/02/2023 3:45 PM EDT OT/PT/Speech Visit [facility] [address] [place] [address] Sarah Merchant, PT [address] [place] [phone] Right knee (referral in scanned docs) [facility] Comment on above: Right knee (referral in scanned docs) Start: 12-01-2023 End: 12-01-2023 Patient encounter procedure 12/01/2023 1:20 PM EDT Office Visit [facility] [address] [place] [address] Michael Puga, [address] [place], [place] [phone] follow up, review labs [facility] Comment on above: follow up, review labs Start: 11-30-2023 End: 11-30-2023 Patient encounter procedure 11/30/2023 2:15 PM EDT OT/PT/Speech Visit [facility] [address] [place] [address] Sarah Merchant, PT [address] [place], [place] [phone] Right knee (referral in scanned docs) [facility] Comment on above: Right knee (referral in scanned docs) Start: 11-25-2023 End: 11-25-2023 Patient encounter procedure 11/25/2023 8:30 AM EDT OT/PT/Speech Visit [facility] [address] [place] [address] Sarah Merchant, PT [address] [place], [place] [phone] Right knee (referral in scanned docs) [facility] Comment on above: Right knee (referral in scanned docs) Start: 11-13-2023 End: 02-12-2024 CBC W Auto Differential panel - Blood COMPLETE BLOOD COUNT AND DIFFERENTIAL Lab Routine Primary hypertension Expected: 11/13/2023, Expires: 02/12/2024 [facility] Comment on above: Expected: 11/13/2023, Expires: Start: 11-13-2023 End: 02-12-2024 Comprehensive metabolic 2000 panel - Serum or Plasma COMPREHENSIVE METABOLIC PANEL Lab Routine Primary hypertension Expected: 11/13/2023, Expires: 02/12/2024 [facility] Work Phone: Comment on above: Expected: 11/13/2023, Expires: Start: 11-13-2023 End: 02-12-2024 Hemoglobin A1c in Blood HEMOGLOBIN A1C Lab Routine IFG (impaired fasting glucose) Expected: 11/13/2023, Expires: 02/12/2024 [facility] Comment on above: Expected: 11/13/2023, Expires: Start: 11-13-2023 End: 02-12-2024 Lipid 1996 panel - Serum or Plasma LIPID PANEL BASIC Lab Routine Primary hypertension Expected: 11/13/2023, Expires: 02/12/2024 [facility] Comment on above: Expected: 11/13/2023, Expires: Start: 11-13-2023 End: 02-12-2024 Thyroxine (T4) free [Mass/volume] in Serum or Plasma T4 FREE/FREE THYROXINE Lab Routine Subclinical hypothyroidism Expected: 11/13/2023, Expires: 02/12/2024 [facility] Comment on above: Expected: 11/13/2023, Expires: Start: 11-13-2023 End: 02-12-2024 Triiodothyronine (T3) [Mass/volume] in Serum or Plasma T3 Lab Routine Subclinical hypothyroidism Expected: 11/13/2023, Expires: 02/12/2024 [facility] Comment on above: Expected: 11/13/2023, Expires: Start: 10-14-2023 End: 01-13-2024 Thyrotropin [Units/volume] in Serum or Plasma THYROID STIMULATING HORMONE Lab Routine Subclinical hypothyroidism Expected: 10/14/2023, Expires: 01/13/2024 [facility] Comment on above: Expected: 10/14/2023, Expires: Start: 10-14-2023 End: 10-14-2023 Patient encounter procedure 10/14/2023 1:20 PM EDT Office Visit [facility] [address] [place] [address] Key Portillo APRN.COUNTER WAITER [address] [place] [address] Hospital Follow Up (TCM thru 10/15) [facility] Comment on above: Hospital Follow Up (TCM thru 10/15) Start: 10-06-2023 End: 01-05-2024 Comprehensive metabolic 2000 panel - Serum or Plasma COMPREHENSIVE METABOLIC PANEL Lab Routine Diarrhea, unspecified type Expected: 10/06/2023, Expires: 01/05/2024 [facility] Work Phone: Comment on above: Expected: 10/06/2023, Expires: Start: 08-05-2023 Covid-19 Vaccine () Covid-19 Vaccine () [facility] Start: 07-08-2023 End: 10-07-2023 Thyrotropin [Units/volume] in Serum or Plasma TSH BLD Lab Routine Thyroid disease Expected: 07/08/2023, Expires: 10/07/2023 [facility] Work Phone: Comment on above: Expected: 07/08/2023, Expires: Start: 07-08-2023 End: 10-07-2023 Thyroxine (T4) free [Mass/volume] in Serum or Plasma T4 FREE/FREE THYROX Lab Routine Thyroid disease Expected: 07/08/2023, Expires: 10/07/2023 [facility] Work Phone: Comment on above: Expected: 07/08/2023, Expires: 4 Start: 07-08-2023 End: 10-07-2023 Triiodothyronine (T3) Free [Mass/volume] in Serum or Plasma T3 FREE BLD Lab Routine Thyroid disease Expected: 07/08/2023, Expires: 10/07/2023 [facility] Work Phone: Comment on above: Expected: 07/08/2023, Expires: Start: 06-04-2023 COVID-19 VACCINE (3 - Booster for Pfizer series) COVID-19 VACCINE (3 - Booster for Pfizer series) [facility] Comment on above: Postponed from 09/27/2020 (Declined at t his time) Start: 06-04-2023 COVID-19 VACCINE (3 - Pfizer series) COVID-19 VACCINE (3 - Pfizer series) [facility] Comment on above: Postponed from 09/27/2020 (Declined at t his time) Start: 06-04-2023 Urine microalbumin profile DTAP,TDAP,TD (2 - Tdap) [facility] Comment on above: Postponed from 08/31/2013 (Declined at t his time) Start: 05-03-2023 Advance Directive Discussion Advance Directive Discussion [facility] Start: 04-21-2023 ANNUAL PCP TEAM CHRONIC DISEASE VISIT ANNUAL PCP TEAM CHRONIC DISEASE VISIT [facility] Start: 04-21-2023 BP CONTROLLED (<130/80) BP CONTROLLED (<130/80) [facility] Start: 03-24-2023 End: 05-24-2023 CBC panel - Blood by Automated count CBC Lab Routine Primary hypertension Expected: 03/24/2023, Expires: 05/24/2023 [facility] Work Phone: Comment on above: Expected: 03/24/2023, Expires: 4 Start: 03-24-2023 End: 05-24-2023 Cobalamin (Vitamin B12) [Mass/volume] in Serum or Plasma VITAMIN B12 BLOOD Lab Routine Vitamin B12 deficiency Expected: 03/24/2023, Expires: 05/24/2023 [facility] Work Phone: Comment on above: Expected: 03/24/2023, Expires: 4 Start: 03-24-2023 End: 05-24-2023 Comprehensive metabolic 2000 panel - Serum or Plasma COMP METABOLIC PANEL Lab Routine Primary hypertension Expected: 03/24/2023, Expires: 05/24/2023 [facility] Work Phone: Comment on above: Expected: 03/24/2023, Expires: 4 Start: 03-24-2023 End: 05-24-2023 Hemoglobin A1c in Blood HGB A1C Lab Routine IFG (impaired fasting glucose) Expected: 03/24/2023, Expires: 05/24/2023 [facility] Work Phone: Comment on above: Expected: 03/24/2023, Expires: 4 Start: 03-24-2023 End: 05-24-2023 Thyrotropin [Units/volume] in Serum or Plasma TSH BLD Lab Routine Fatigue, unspecified type Obesity, Class II, BMI 35-39.9 IFG (impaired fasting glucose) Expected: 03/24/2023, Expires: 05/24/2023 [facility] Work Phone: Comment on above: Expected: 03/24/2023, Expires: 4 Start: 03-24-2023 End: 05-24-2023 Thyroxine (T4) free [Mass/volume] in Serum or Plasma T4 FREE/FREE THYROX Lab Routine Fatigue, unspecified type Obesity, Class II, BMI 35-39.9 IFG (impaired fasting glucose) Expected: 03/24/2023, Expires: 05/24/2023 [facility] Work Phone: Comment on above: Expected: 03/24/2023, Expires: 4 Start: 02-16-2023 ANNUAL PCP TEAM CHRONIC DISEASE VISIT ANNUAL PCP TEAM CHRONIC DISEASE VISIT [facility] Start: 02-16-2023 BP CONTROLLED (<130/80) BP CONTROLLED (<130/80) [facility] Start: 01-01-2023 Covid-19 Vaccine ( season) Covid-19 Vaccine () [facility] Start: 01-01-2023 Influenza vaccination [facility] Start: 12-16-2022 ANNUAL PCP TEAM CHRONIC DISEASE VISIT ANNUAL PCP TEAM CHRONIC DISEASE VISIT [facility] Start: 09-19-2022 End: 11-19-2022 25-hydroxyvitamin D3 [Mass/volume] in Serum or Plasma VITAMIN D 25 HYDROXY Lab Routine Vitamin D deficiency Expected: 09/19/2022, Expires: 11/19/2022 [facility] Work Phone: Comment on above: Expected: 09/19/2022, Expires: 3 Start: 09-19-2022 End: 11-19-2022 Cobalamin (Vitamin B12) [Mass/volume] in Serum or Plasma VITAMIN B12 BLOOD Lab Routine Vitamin B12 deficiency Expected: 09/19/2022, Expires: 11/19/2022 [facility] Work Phone: Comment on above: Expected: 09/19/2022, Expires: 3 Start: 09-19-2022 End: 11-19-2022 Comprehensive metabolic 2000 panel - Serum or Plasma COMP METABOLIC PANEL Lab Routine Fatigue, unspecified type Expected: 09/19/2022, Expires: 11/19/2022 [facility] Work Phone: Comment on above: Expected: 09/19/2022, Expires: 3 Start: 09-19-2022 End: 11-19-2022 Hemoglobin A1c in Blood HGB A1C Lab Routine IFG (impaired fasting glucose) Expected: 09/19/2022, Expires: 11/19/2022 [facility] Work Phone: Comment on above: Expected: 09/19/2022, Expires: 3 Start: 09-19-2022 End: 11-19-2022 Iron and Iron binding capacity panel - Serum or Plasma IRON + TIBC Lab Routine Iron deficiency Expected: 09/19/2022, Expires: 11/19/2022 [facility] Work Phone: Comment on above: Expected: 09/19/2022, Expires: 3 Start: 09-19-2022 End: 11-19-2022 Lipid 1996 panel - Serum or Plasma LIPID PANEL BASIC Lab Routine Hyperlipidemia, unspecified hyperlipidemia type Expected: 09/19/2022, Expires: 11/19/2022 [facility] Work Phone: Comment on above: Expected: 09/19/2022, Expires: 3 Start: 06-13-2022 ANNUAL PCP TEAM CHRONIC DISEASE VISIT ANNUAL PCP TEAM CHRONIC DISEASE VISIT [facility] Start: 06-04-2022 End: 08-04-2022 25-hydroxyvitamin D3 [Mass/volume] in Serum or Plasma [facility] Work Phone: Comment on above: Expected: 06/04/2022, Expires: Start: 06-04-2022 End: 08-04-2022 CBC W Auto Differential panel - Blood [facility] Work Phone: Comment on above: Expected: 06/04/2022, Expires: 3 Start: 06-04-2022 End: 08-04-2022 Cobalamin (Vitamin B12) [Mass/volume] in Serum or Plasma [facility] Work Phone: Comment on above: Expected: 06/04/2022, Expires: Start: 06-04-2022 End: 08-04-2022 Comprehensive metabolic 2000 panel - Serum or Plasma [facility] Work Phone: Comment on above: Expected: 06/04/2022, Expires: 3 Start: 06-04-2022 End: 08-04-2022 Ferritin [Mass/volume] in Serum or Plasma [facility] Work Phone: Comment on above: Expected: 06/04/2022, Expires: 3 Start: 06-04-2022 End: 08-04-2022 Hemoglobin A1c in Blood [facility] Work Phone: Comment on above: Expected: 06/04/2022, Expires: 3 Start: 06-04-2022 End: 08-04-2022 Iron and Iron binding capacity panel - Serum or Plasma [facility] Work Phone: Comment on above: Expected: 06/04/2022, Expires: 3 Start: 06-04-2022 End: 08-04-2022 Natriuretic peptide.B prohormone N-Terminal [Mass/volume] in Serum or Plasma [facility] Work Phone: Comment on above: Expected: 06/04/2022, Expires: 3 Start: 06-04-2022 End: 08-04-2022 Thyrotropin [Units/volume] in Serum or Plasma [facility] Work Phone: Comment on above: Expected: 06/04/2022, Expires: 3 Start: 05-03-2022 ADVANCE DIRECTIVE DISCUSSION ADVANCE DIRECTIVE DISCUSSION [facility] Start: 01-01-2022 Influenza vaccination INFLUENZA (#1) [facility] Start: 05-03-2021 ADVANCE DIRECTIVE DISCUSSION ADVANCE DIRECTIVE DISCUSSION [facility] Start: 01-02-2021 COVID-19 VACCINE (3 - Booster for Pfizer series) COVID-19 VACCINE (3 - Booster for Pfizer series) [facility] Start: 09-27-2020 COVID-19 VACCINE (3 - Booster for Pfizer series) COVID-19 VACCINE (3 - Booster for Pfizer series) [facility] Start: 03-04-2019 BP CONTROLLED (<130/80) BP CONTROLLED (<130/80) [facility] Start: 05-12-2017 FECAL OCCULT BLOOD FECAL OCCULT BLOOD [facility] Start: 05-06-2017 End: 05-06-2017 Appointment Appointment [facility] Work Phone: Start: 12-03-2016 End: 12-03-2016 Appointment Appointment [facility] Work Phone: Start: 12-03-2016 End: 12-03-2016 Follow Up Appt 6 months Follow Up Appt 6 months [facility] Work Phone: Start: 12-03-2016 End: 12-03-2016 [facility] Work Phone: Start: 10-22-2016 End: 10-22-2016 Appointment Appointment [facility] Work Phone: Start: 10-22-2016 End: 10-22-2016 Follow Up Appt 6 months Follow Up Appt 6 months [facility] Work Phone: Start: 10-22-2016 End: 10-22-2016 MMM MMM [facility] Work Phone: Start: 06-03-2016 End: 06-03-2016 Follow Up Appt 6 months Follow Up Appt 6 months [facility] Work Phone: Start: 06-03-2016 End: 06-03-2016 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 Work Phone: Start: 08-30-2015 End: 08-30-2015 Follow Up Appt 6 months Follow Up Appt 6 months [facility] Work Phone: Start: 08-30-2015 End: 08-30-2015 Follow Up Appt 6 weeks Follow Up Appt 6 weeks [facility] Work Phone: Start: 08-30-2015 End: 08-30-2015 MMM MMM [facility] Work Phone: Start: 06-11-2015 End: 06-11-2015 24 hour holter monitor 24 hour holter monitor [facility] Work Phone: Start: 06-11-2015 End: 06-11-2015 Echocardiography Echocardiogram (complete) [facility] Work Phone: Start: 05-28-2015 End: 05-28-2015 *BMP *BMP [facility] Work Phone: Start: 05-28-2015 End: 05-28-2015 Carotid duplex Carotid duplex [facility] Work Phone: Start: 05-28-2015 End: 05-28-2015 Follow Up Appt 3 months Follow Up Appt 3 months [facility] Work Phone: Start: 05-28-2015 End: 08-16-2015 Follow Up Appt 6 months Follow Up Appt 6 months [facility] Work Phone: Start: 05-28-2015 End: 05-28-2015 MMM MMM [facility] Work Phone: Start: 05-28-2015 End: 08-16-2015 Pac[facility] Clinic [facility] Work Phone: Start: 01-16-2015 SHINGRIX VACCINE (1 of 2) SHINGRIX VACCINE (1 of 2) [facility] Start: 01-16-2015 SHINGRIX VACCINE (2 of 3) SHINGRIX VACCINE (2 of 3) [facility] Start: 11-22-2014 End: 11-22-2014 CUSTOMER EXPERIENCE STRATEGIST CUSTOMER EXPERIENCE STRATEGIST [facility] Work Phone: Start: 11-22-2014 End: 11-22-2014 Electrocardiogram, complete EKG (In office) [facility] Work Phone: Start: 11-22-2014 End: 08-16-2015 Follow Up Appt 3 months Follow Up Appt 3 months [facility] Work Phone: Start: 11-22-2014 End: 11-22-2014 Follow Up Appt 6 months Follow Up Appt 6 months [facility] Work Phone: Start: 11-22-2014 End: 08-16-2015 Pac[facility] Clinic [facility] Work Phone: Start: 07-25-2014 End: 11-07-2014 Follow Up Appt 6 months Follow Up Appt 6 months [facility] Work Phone: Start: 07-25-2014 End: 11-07-2014 [facility] Clinic [facility] Work Phone: Start: 05-25-2014 End: 11-07-2014 Follow Up Appt 6 months Follow Up Appt 6 months [facility] Work Phone: Start: 05-25-2014 End: 05-25-2014 MMM MMM [facility] Work Phone: Start: 05-25-2014 End: 11-07-2014 [facility] Clinic [facility] Work Phone: Start: 01-26-2014 End: 11-07-2014 Follow Up Appt 6 months Follow Up Appt 6 months [facility] Work Phone: Start: 01-26-2014 End: 11-07-2014 [facility] Work Phone: Start: 11-22-2013 End: 11-22-2013 CUSTOMER EXPERIENCE STRATEGIST CUSTOMER EXPERIENCE STRATEGIST [facility] Work Phone: Start: 11-22-2013 End: 11-22-2013 Follow Up Appt 6 months Follow Up Appt 6 months [facility] Work Phone: Start: 10-25-2013 End: 11-22-2013 Follow Up Appt 3 months Follow Up Appt 3 months [facility] Work Phone: Start: 10-25-2013 End: 11-22-2013 [facility] Clinic [facility] Work Phone: Start: 08-31-2013 Urine microalbumin profile DTAP,TDAP,TD (2 - Tdap) [facility] Start: 08-16-2013 End: 08-16-2013 Follow Up Appt Other Follow Up Appt Other [facility] Work Phone: Start: 07-19-2013 End: 07-20-2013 *BMP *BMP [facility] Work Phone: Start: 07-19-2013 End: 07-20-2013 *CBC with Differential *CBC with Differential [facility] Work Phone: Start: 07-19-2013 End: 07-19-2013 Follow Up Appt 1 month Follow Up Appt 1 month [facility] Work Phone: Start: 07-19-2013 End: 07-20-2013 Magnesium *Magnesium [facility] Work Phone: Start: 07-19-2013 End: 07-19-2013 MMM MMM [facility] Work Phone: Start: 07-18-2013 End: 07-19-2013 Follow Up Appt 3 months Follow Up Appt 3 months [facility] Work Phone: Start: 07-18-2013 End: 07-19-2013 Pacer Clinic [facility] Work Phone: Start: 05-24-2013 End: 05-26-2013 *BMP *BMP [facility] Work Phone: Start: 05-24-2013 End: 05-24-2013 CUSTOMER EXPERIENCE STRATEGIST CUSTOMER EXPERIENCE STRATEGIST [facility] Work Phone: Start: 05-24-2013 End: 05-24-2013 Follow Up Appt 6 months Follow Up Appt 6 months [facility] Work Phone: Start: 05-24-2013 End: 07-18-2013 Follow Up Appt Other Follow Up Appt Other [facility] Work Phone: Start: 04-10-2013 End: 05-16-2013 Follow Up Appt 3 months Follow Up Appt 3 months [facility] Work Phone: Start: 04-10-2013 End: 05-16-2013 Pacer Clinic [facility] Work Phone: Start: 12-07-2012 End: 05-16-2013 Follow Up Appt 3 months Follow Up Appt 3 months [facility] Work Phone: Start: 12-07-2012 End: 05-16-2013 Pacer Clinic [facility] Work Phone: Start: 11-15-2012 End: 11-15-2012 Follow Up Appt 6 months Follow Up Appt 6 months [facility] Work Phone: Start: 11-15-2012 End: 11-15-2012 MMM MMM [facility] Work Phone: Start: 05-18-2012 End: 05-16-2013 *BMP *BMP [facility] Work Phone: Start: 05-18-2012 End: 05-16-2013 *CBC with Differential *CBC with Differential [facility] Work Phone: Start: 05-18-2012 End: 05-16-2013 Follow Up Appt 6 months Follow Up Appt 6 months [facility] Work Phone: Start: 05-18-2012 End: 05-16-2013 Thyroid stimulating hormone (TSH) *TSH [facility] Work Phone: Start: 05-18-2012 End: 05-16-2013 Thyroxine (T4) *T4 (Total) [facility] Work Phone: Start: 10-27-2011 End: 10-27-2011 Follow Up Appt 6 months Follow Up Appt 6 months [facility] Work Phone: Start: 07-14-2011 End: 05-16-2013 Follow Up Appt 3 months Follow Up Appt 3 months [facility] Work Phone: Start: 05-05-2011 End: 05-07-2011 *BMP *BMP [facility] Work Phone: Start: 05-05-2011 End: 05-06-2011 aPTT *PTT-Partial Thromboplastin Time [facility] Work Phone: Start: 05-05-2011 End: 05-06-2011 aPTT Coag time (PPP) *PTT-Partial Thromboplastin Time [facility] Work Phone: Start: 05-05-2011 End: 05-06-2011 CBC W Auto Differential panel - Blood *CBC without Diff [facility] Work Phone: Start: 05-05-2011 End: 05-06-2011 Chest x-ray X-Ray, Chest, PA & Lateral [facility] Work Phone: Start: 05-05-2011 End: 05-06-2011 Coagulation factor induced.INR assay in platelet poor plasma *PT/INR [facility] Work Phone: Start: 05-05-2011 End: 05-07-2011 Electrocardiogram, complete EKG (In office) [facility] Work Phone: Start: 05-05-2011 End: 05-16-2013 Follow Up Appt Other Follow Up Appt Other [facility] Work Phone: Start: 05-05-2011 End: 05-06-2011 Left Heart Cath Left Heart Cath [facility] Work Phone: Start: 04-07-2011 End: 04-07-2011 Follow Up Appt 3 months Follow Up Appt 3 months [facility] Work Phone: Start: 04-02-2006 Medicare Annual Wellness Visit Medicare Annual Wellness Visit [facility] Start: 2001 RSV Vaccine (1 - 1-dose 60+ series) RSV Vaccine (1 - 1-dose 60+ series) [facility] Amphetamines [Presen ce] in Urine by Screen method >1000 ng/mL [facility] Bacteria identified in Urine by Culture URINE CULTURE Microbiology Routine Urinary frequency 10/20/2021 4:08 PM EDT [facility] Work Phone: Benzodiazepine measurement, urine [facility] Cocaine measurement, urine [facility] End: 06-04-2023 ECG COMPLETE ECG COMPLETE ECG Routine SOB (shortness of breath) on exertion 1 Occurrences starting 06/04/2022 until 06/04/2023 [facility] Work Phone: Comment on above: 1 Occurrences starting 06/04/2022 until 06/04/2023 ECG COMPLETE ECG COMPLETE ECG Fatigue, unspecified type SOB (shortness of breath) on exertion Bilateral leg edema 06/04/2022 3:25 PM EST [facility] End: 06-04-2023 Echocardiography ECHO Cardiology Routine SOB (shortness of breath) on exertion 1 Occurrences starting 06/04/2022 until 06/04/2023 [facility] Work Phone: Comment on above: 1 Occurrences starting 06/04/2022 until 06/04/2023 End: 12-18-2022 EGD DIAGNOSTIC EGD DIAGNOSTIC Endoscopy Routine Gastroesophageal reflux disease with esophagitis without hemorrhage 1 Occurrences starting 12/18/2021 until 12/18/2022 [facility] Work Phone: Comment on above: 1 Occurrences starting 12/18/2021 until 12/18/2022 End: 03-13-2025 EGD DIAGNOSTIC EGD DIAGNOSTIC Endoscopy Routine Epigastric abdominal pain Pulmonary hypertension (HCC) 1 Occurrences starting 03/13/2024 until 03/13/2025 [facility] Work Phone: Comment on above: 1 Occurrences starting 03/13/2024 until 03/13/2025 End: 12-20-2025 EGD DIAGNOSTIC EGD DIAGNOSTIC Endoscopy Routine Positive occult stool blood test Anemia, unspecified type 1 Occurrences starting 12/20/2024 until 12/20/2025 [facility] Comment on above: 1 Occurrences starting 12/20/2024 until 12/20/2025 Ethanol [Mass/volume ] in Serum or Plasma [facility] fentaNYL [Presence] in Urine by Screen method [facility] End: 12-20-2025 Flexible sigmoidoscopy study COLONOSCOPY DIAGNOSTIC Endoscopy Routine Positive occult stool blood test Anemia, unspecified type 1 Occurrences starting 12/20/2024 until 12/20/2025 [facility] Work Phone: Comment on above: 1 Occurrences starting 12/20/2024 until 12/20/2025 Folate [Moles/volume ] in Serum or Plasma [facility] Glucose [Mass/volume ] in Serum or Plasma GLUCOSE, BLOOD (POC) Lab Routine Urinary frequency Glucosuria Ordered: 10/20/2021 [facility] Work Phone: Comment on above: Ordered: 10/20/2021 Hemoglobin A1c/Hemoglobin.total in Blood [facility] Magnesium measurement [facility] Magnesium measurement [facility] Methadone measuremen t, urine [facility] NM Heart Views W str ess and W radionuclide IV [facility] NM Heart Views W str ess and W radionuclide IV [facility] Noninvasive ear/puls e oximetry single deter NONINVASV OXYGEN SATUR;SINGLE Procedures Routine Congestive heart failure, unspecified HF chronicity, unspecified heart failure type (HCC) Obstructive lung disease (HCC) Chronic respiratory failure with hypoxia (HCC) Ordered: 09/07/2024 [facility] Work Phone: Comment on above: Ordered: 09/07/[address] [facility] Work Phone: Patient referral [facility] Work Phone: Phencyclidine [Prese nce] in Urine [facility] End: 01-11-2024 Polysomnogram POLYSOMNOGRAM (PSG) Procedures Routine Fatigue, unspecified type 1 Occurrences starting 01/11/2023 until 01/11/2024 [facility] Work Phone: Comment on above: 1 Occurrences starting 01/11/2023 until 01/11/2024 End: 01-21-2024 Radiologic exam chest 2 views XR CHEST 2V FRONTAL/LAT Radiology Routine WELCH (dyspnea on exertion) 1 Occurrences starting 12/22/2022 until 01/21/2024 [facility] Work Phone: Comment on above: 1 Occurrences starting 12/22/2022 until 01/21/2024 End: 01-21-2024 SPIROMETRY - BASELINE AND POST DILATOR SPIROMETRY - BASELINE AND POST DILATOR PFT Routine WELCH (dyspnea on exertion) 1 Occurrences starting 12/22/2022 until 01/21/2024 [facility] Work Phone: Comment on above: 1 Occurrences starting 12/22/2022 until 01/21/2024 SPIROMETRY - BASELIN E AND POST DILATOR SPIROMETRY - BASELINE AND POST DILATOR PFT Routine WELCH (dyspnea on exertion) 12/28/2022 2:06 PM EDT [facility] Work Phone: SURGICAL PATHOLOGY [facility] Work Phone: Comment on above: Release Upon Ordering for 1 Occurrences starting 01/08/2022, 1 completed SURGICAL PATHOLOGY [facility] Work Phone: Comment on above: Release Upon Ordering for 1 Occurrences starting 03/31/2024, 1 completed Urine cannabinoid measurement [facility] Urine opiate measurement [facility] End: 12-30-2024 XR Chest PA and Lateral XR CHEST 2V FRONTAL/LAT Radiology Routine Rhonchi Acute bronchitis, unspecified organism 1 Occurrences starting 12/01/2023 until 12/30/2024 [facility] Work Phone: Comment on above: 1 Occurrences starting 12/01/2023 until 12/30/2024 End: 06-10-2025 XR Chest PA and Lateral XR CHEST 2V FRONTAL/LAT Radiology Routine Congestive heart failure, unspecified HF chronicity, unspecified heart failure type (HCC) Hospital discharge follow-up 1 Occurrences starting 05/11/2024 until 06/10/2025 [facility] Comment on above: 1 Occurrences starting 05/11/2024 until 06/10/2025 [facility] Immunizations Immunization Date Immunization Notes Care Provider Fa [facility] 03-01-2024 pneumococcal Conjuga te, unspecified formulation Michael Puga DO Work Phone: [facility] Work Phone: 03-01-2024 influenza, high dose seasonal, preservative-free Michael Puga DO Work Phone: [facility] 03-01-2024 pneumococcal conjuga te (PCV20) vaccine, 20 valent (PREVNAR 20) Michael Puga DO Work Phone: [facility] 03-01-2024 influenza virus vacc ine, unspecified formulation Key Portillo APRN.COUNTER WAITER Work Phone: [facility] 04-05-2023 COVID-19 vaccine, ag e 12+ yr, season (dreamsha.re) Michael Puga DO Work Phone: [facility] Work Phone: 04-05-2023 influenza (HD-IIV4) vaccine, age 65+ yr, high dose, quadrivalent, PF (FLUZONE HIGH-DOSE) Michael Puga DO Work Phone: [facility] Work Phone: 04-05-2023 influenza virus vacc ine, unspecified formulation Sarah Merchant PT Work Phone: [facility] 02-16-2022 influenza, high-dose , quadrivalent vaccine (FLUZONE HIGH DOSE QUADRIVALENT) Michael Puga DO Work Phone: [facility] Work Phone: 02-16-2022 influenza virus vacc ine, unspecified formulation Xr Mob Work Phone: [facility] 09-16-[address] Michael Puga DO Work Phone: [facility] 06-16-[address] Michael Puga DO Work Phone: [facility] 03-13-2021 influenza, high-dose , quadrivalent vaccine (FLUZONE HIGH DOSE QUADRIVALENT) July Garcia PA-C Work Phone: [facility] 08-02-2020 Covid (Pfizer) Dr. Michael Puga DO Work Phone: [facility] 07-04-2020 Covid (Pfizer) Dr. Michael Puga DO Work Phone: [facility] 01-11-2019 influenza, high dose seasonal, preservative-free July Garcia PA-C Work Phone: [facility] Work Phone: 12-24-2018 tetanus toxoid, redu alisa diphtheria toxoid, and acellular pertussis vaccine, adsorbed Dr. Michael Puga Work Phone: [facility] 02-21-2018 influenza, high dose seasonal, preservative-free July Garcia PA-C Work Phone: [facility] 03-15-2017 influenza, high dose seasonal, preservative-free July Garcia PA-C Work Phone: [facility] Work Phone: 01-19-2017 influenza, injectabl e, quadrivalent, preservative free Dr. Michael Puga DO Work Phone: [facility] 01-19-2017 influenza, seasonal, injectable Dr. Michael Puga Work Phone: [facility] Work Phone: 05-06-2016 pneumococcal polysaccharide vaccine, 23 valent July Jose PA-C Work Phone: [facility] Work Phone: 03-09-2016 influenza, high dose seasonal, preservative-free July Jose PA-C Work Phone: [facility] Work Phone: 02-13-2016 influenza, high dose seasonal, preservative-free July Richardson PA-C Work Phone: [facility] Work Phone: 02-01-[address] Michael Puga Work Phone: [facility] 02-01-2016 Dr. Michael Puga DO Work Phone: [facility] 03-11-2015 pneumococcal conjuga te vaccine, 13 valent July Jose PA-C Work Phone: [facility] 02-17-2015 influenza, high dose seasonal, preservative-free July Richardson PA-C Work Phone: [facility] 11-21-2014 zoster vaccine, live July Richardson PA-C Work Phone: [facility] Work Phone: 04-12-2006 influenza virus vacc ine, unspecified formulation July Jose PA-C Work Phone: [facility] Work Phone: 04-12-2006 pneumococcal polysaccharide vaccine, 23 valent July Jose PA-C Work Phone: [facility] Work Phone: 09-01-2003 diphtheria and tetan us toxoids, adsorbed for pediatric use July Garcia PA-C Work Phone: [facility] Work Phone: Payers Date Payer Category Payer Self-pay [id number] 2015 Private Health Insurance [employer] PPO [id number] 2015-Present [phone] [address] [place] [address] O [id number] 2015 Private Health Insurance [id number] 2006 Medicare MEDICARE MEDICAR E A AND B [id number] 2006-Present [phone] [address] [address] [place] [address] Medicare [id number] [id number] 2006 Medicare [id number]. 1.13.159. 2.7.3.141172.315 2006 Medicare [id number] 2005 Private Health Insurance [id number] Unknown Unknown [id number] 2.16.840.1.639279.3.579. 2.462 Unknown [id number] 2.16.840.1.346409.3.579. 2.462 Unknown [id number] 2.16.840.1.293350.3.579. 2.462 Unknown [id number] 2.16.840.1.842476.3.579. 2.462 Unknown [id number] 2.16.840.1.544136.3.579. 2.462 Unknown [id number] 2.16.840.1.538885.3.579. 2.462 Unknown [id number] 2.16.840.1.391782.3.579. 2.462 Unknown [id number] 2.16.840.1.895623.3.579. 2.462 Unknown [id number] 2.16.840.1.080595.3.579. 2.462 Unknown [id number] 2.16.840.1.811981.3.579. 2.462 Unknown [id number] 2.16840.1.118390.3.579. 2.462 Unknown [id number] 2.16.840.1.000601.3.579. 2.462 Unknown [id number] 2.16840.1.970122.3.579. 2.462 Unknown [id number] 2.840.1.676007.3.579. 2.462 Unknown [id number] 2.16.840.1.489227.3.579. 2.462 Unknown [id number] 2.16.840.1.594956.3.579. 2.462 Unknown [id number] 2.16840.1.818622.3.579. 2.462 Unknown [id number] 2.16840.1.104116.3.579. 2.462 Unknown [id number] 2.16.840.1.844409.3.579. 2.462 Unknown [id number] 2.16.840.1.814234.3.579. 2.462 Unknown [id number] 2.16.840.1.320514.3.579. 2.462 Unknown [id number] 2.16.840.1.827030.3.579. 2.462 Unknown [id number] 2.16840.1.925191.3.579. 2.462 Unknown [id number] 2.16.840.1.000723.3.579. 2.462 Unknown [id number] 2.16.840.1.413718.3.579. 2.462 Unknown [id number] 2.16.840.1.327139.3.579. 2.462 Unknown [id number] 2.16840.1.047498.3.579. 2.462 Unknown [id number] 2.16.840.1.571372.3.579. 2.462 Unknown [id number] 2.840.1.031091.3.579. 2.462 Unknown [id number] 2.840.1.512627.3.579. 2.462 Unknown [id number] 2.840.1.051189.3.579. 2.462 Unknown [id number] 2.840.1.891002.3.579. 2.462 Unknown [id number] 2.840.1.144975.3.579. 2.462 Unknown [id number] 2.840.1.900316.3.579. 2.462 Unknown [id number] 2.840.1.386901.3.579. 2.462 Unknown [id number] 2.840.1.719901.3.579. 2.462 Unknown [id number] 2.840.1.861392.3.579. 2.462 Unknown [id number] 2.840.1.519983.3.579. 2.462 Unknown [id number] 2.840.1.626614.3.579. 2.462 Unknown [id number] 2.840.1.334838.3.579. 2.462 Unknown [id number] 2.840.1.349246.3.579. 2.462 Unknown [id number] 2.16.840.1.756420.3.579. 2.462 Unknown [id number] 2.16.840.1.275984.3.579. 2.462 Unknown [id number] 2.16.840.1.239256.3.579. 2.462 Unknown [id number] 2.16.840.1.822582.3.579. 2.462 Unknown [id number] 2.16.840.1.525966.3.579. 2.462 Unknown [id number] 2.16.840.1.482613.3.579. 2.462 Unknown [id number] 2.16.840.1.812252.3.579. 2.462 Unknown [id number] 2.16.840.1.662945.3.579. 2.462 Unknown [id number] 2.16.840.1.059217.3.579. 2.462 Unknown [id number] 2.16.840.1.284250.3.579. 2.462 Unknown [id number] 2.16.840.1.009061.3.579. 2.462 Unknown [id number] 2.16.840.1.572778.3.579. 2.462 Unknown [id number] 2.16.840.1.570665.3.579. 2.462 Unknown [id number] 2.16.840.1.345253.3.579. 2.462 Unknown [id number] 2.16.840.1.602031.3.579. 2.462 Unknown [id number] 2.16.840.1.807395.3.579. 2.462 Unknown [id number] 2.16.840.1.983744.3.579. 2.462 Unknown [id number] 2.16.840.1.880492.3.579. 2.462 Unknown [id number] 2.16.840.1.705548.3.579. 2.462 Unknown [id number] 2.16.840.1.014968.3.579. 2.462 Social History Date Type Detail Facility [facility] Start: 06-09-2021 Tobacco smokin g consumption unknown [facility] Start: 12-16-2021 End: 12-29-2024 Tobacco smoking status NHIS Never smoked tobacco [facility] Start: 06-13-2021 End: 08-17-2024 Alcohol intake Ex-drinker (finding) [facility] Start: 12-12-2018 History SDOH Food Worry 1 [facility] Start: 12-12-2018 History SDOH Transpo rt Med 2 [facility] Start: 1940 Sex Assigned At Not on file C [facility] Start: 08-23-2021 End: 02-16-2022 Exposure to SARS-CoV-2 (event) Not sure [facility] Start: 05-06-[address] [facility] Start: 12-24-[address] [facility] Start: 1940 Sex Assigned At Female W [facility] Start: 12-16-2021 Tobacco use and exposure Smokeless tobacco non-user [facility] Work Phone: Start: 12-22-2022 End: 01-26-2024 History of Social function [facility] Start: 12-22-2022 End: 01-26-2024 Tobacco use panel [facility] Start: 04-03-2012 Adult Depression Screening Assessment 0 [facility] (I/We) worried wheth er (my/our) food would run out before (I/we) got money to buy more. Never true [facility] Start: 07-14-2024 End: 07-20-2024 Sex Female (finding) [facility] Medical Equipment Procedure Code Equipment Code Equipment Origin al Text Equipment Identifier Dates ([id number]) [id number] FDA Start: 06-09-2021 Use with blood glucose test 2 times daily, Insulin Dep? No [id number] Start: 08-30-2024 Use with blood glucose test 2 times daily. Insulin Dep? No [id number] Start: 08-30-2024 PACEMAKER LEAD FDA Start: 01-29-2011 PACEMAKER LEAD FDA Start: 01-29-2011 PACEMAKER LEAD FDA Start: 01-29-2011 PACEMAKER LEAD FDA Start: 01-29-2011 PACEMAKER LEAD FDA Start: 01-29-2011 PACEMAKER LEAD FDA Start: 01-29-2011 FDA Start: 01-29-2011 FDA Start: 01-29-2011 PACEMAKER LEAD FDA Start: 01-29-2011 PACEMAKER LEAD FDA Start: 01-29-2011 FDA Start: 01-29-2011 FDA Start: 01-29-2011 FDA Start: 01-29-2011 FDA Start: 01-29-2011 FDA Start: 01-29-2011 FDA Start: 01-29-2011 FDA Start: 01-29-2011 FDA Start: 01-29-2011 FDA Start: 01-29-2011 FDA Start: 01-29-2011 FDA Start: 01-29-2011 FDA Start: 01-29-2011 FDA Start: 01-29-2011 FDA Start: 01-29-2011 FDA Start: 01-29-2011 FDA Start: 01-29-2011 FDA Start: 01-29-2011 FDA Start: 01-29-2011 Goals Date Patient Goal Desired Activity /State Personal health goal Functional Status Date Assessment Result Facility 01-01-2025 Functional status Ambulates;Marquise r;Bathroom Privilege [facility] Work Phone: 12-14-[address] [facility] Work Phone: 12-13-2024 Functional status Activity Abili ty Independent [facility] Work Phone: 12-11-2024 Functional status Ambulates;Bath room Privilege [facility] Work Phone: 12-09-2024 Functional status Well [facility] Work Phone: 12-03-2024 Functional status Ambulates;Up ad jane;Norah ir [facility] Work Phone: 05-02-2024 Functional status Ambulates;Chair [facility] Work Phone: 11-28-2013 Are you deaf, or do you have serious difficulty hearing No 11/28/2013 4:55 PM EDRain Ray Lpn (Hist), 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 [facility] 11-28-2013 Are you blind, or do you have serious difficulty seeing, even when wearing glasses No 11/28/2013 4:55 PM EDT Rain 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), 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 [facility] 11-28-2013 Do you have serious difficulty walking or climbing stairs No 11/28/2013 4:55 PM EDT Rain 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), 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 [facility] 11-28-2013 Do you have difficul ty dressing or bathing No 11/28/2013 4:55 PM EDT Rain 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), 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 [facility] 11-28-2013 Because of a physica l, mental, or emotional condition, do you have difficulty doing errands alone such as visiting a physician's office or shopping No 11/28/2013 4:55 PM EDT Rain 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), 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 [facility] Mental Status Date Assessment Result Facility 01-01-2025 Cognitive function Voice/Name [facility] Work Phone: 12-14-2024 Cognitive function Voice/Name [facility] Work Phone: 12-13-2024 Cognitive function Voice/Name [facility] Work Phone: 12-03-2024 Cognitive function Voice/Name [facility] Work Phone: 11-29-2024 Cognitive function Level Of Cons ciousness Awake;Alert;Appropriate;Fo llows Commands [facility] Work Phone: 05-02-2024 Cognitive function Voice/Name [facility] Work Phone: 11-28-2013 Because of a physica l, mental, or emotional condition, do you have serious difficulty concentrating, remembering, or making decisions No 11/28/2013 4:55 PM EDT Rain 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 Author Type: Coil Finisher Type: Progress Notes Filed: 03/08/2025 15:11 Note Text: POPULATION HEALTH NAVIGATION OUTREACH Action/FYI [facility] MYCHART MESSAGE SENT Topic Due (Y or N) Comments Medicare Wellness y PCP Follow up Colorectal Cancer Screening Controlling Blood Pressure A1C HCC Flu Vaccine y Care Everywhere Reviewed MyChart Activation Updated Appointment Note Reason for Outreach Care Gap/HCC or Scheduling Wellness Visits Care Gaps due: Medicare Annual Wellness Visit Flu Vaccine Patient Contacted: Unable or unnecessary to reach patient: Left message Lifetablehart message sent HCC related Navigation Signature: Cas Rodriguez MA March 08, 2025 3:05 PM [facility] 03-08-2025 Note Patient Outreach (NE TNAV) MICHAEL MEIER ([id number]) 1940 F Date Time Provider Department 03/08/25 CAS RODRIGUEZ NETNAV During your visit today, we recorded the following information about you: Cas Rodriguez MA 03/08/2025 3:11 PM Signed POPULATION HEALTH NAVIGATION OUTREACH Action/I [facility] Useful at NightT MESSAGE SENT Topic Due (Y or N) Comments Medicare Wellness y PCP Follow up Colorectal Cancer Screening Controlling Blood Pressure A1C HCC Flu Vaccine y Care Everywhere Reviewed MyChart Activation Updated Appointment Note Reason for Outreach Care Gap/HCC or Scheduling Wellness Visits Care Gaps due: Medicare Annual Wellness Visit Flu Vaccine Patient Contacted: Unable or unnecessary to reach patient: Left message Lifetablehart message sent HCC related Navigation Signature: Cas Rodriguez MA March 08, 2025 3:05 PM Allergies As of Date: 03/08/2025 Noted Allergy Reaction CIPROFLOXACIN 09/05/2018 2 - Rash DEMEROL (MEPERIDINE (PF)) 02/06/2011 11 - Vomiting OPIOIDS - MORPHINE ANALOGUES 03/17/2001 5 - Intolerance Comments: nausea, dizzy, "sees things" OPIOIDS-MEPERIDINE AND RELATED 02/17/2001 Comments: nausea/vomiting PENICILLIN G 02/17/2001 Comments: hivmyranda PRAVACHOL (PRAVASTATIN SODIUM) 03/09/2016 14 - Other: See Comments Comments: Leg cramps SULFA (SULFONAMIDE ANTIBIOTICS) 03/17/2001 Comments: hivmyranda VICODIN (HYDROCODONE-ACETAMINOPHE*2004 5 - Intolerance Comments: dizzy,nausea,vomiting,headache ZITHROMAX (AZITHROMYCIN) 05/20/2017 5 - Intolerance Date Reviewed: 01/31/2025 Reviewed by: Bhavna Abernathy RN - Fully Assessed Reason for Visit: Population Health Navigation Outreach [3910] Cmt: BLAS JACKMAN Prescriptions as of 03/08/2025 - losartan (COZAAR) 100 mg tablet Take 100 mg by mouth once daily. - furosemide (LASIX) 20 mg tablet Take 20 mg by mouth once daily. - spironolactone (ALDACTONE) 25 mg tablet Take 25 mg by mouth once daily. - sertraline (ZOLOFT) 25 mg tablet Take 25 mg by mouth once daily. - rosuvastatin (CRESTOR) 10 mg tablet Take 1 tablet by mouth daily at bedtime. - gabapentin (NEURONTIN) 100 mg capsule take 100 mg in the evening daily x 1 week then increase to 200 mg in the evening daily x 1 week then can increase to 300 mg in the evening daily - meloxicam (MOBIC) 15 mg tablet Take 1 tablet by mouth once daily. Take with food. - blood sugar diagnostic test strip Use with blood glucose test 2 times daily, Insulin Dep? No - Lancets Use with blood glucose test 2 times daily. Insulin Dep? No - alcohol swabs Use with blood glucose test 2 times daily. Insulin Dep? No - levothyroxine (SYNTHROID) 50 mcg tablet Take 1 tablet by mouth daily before breakfast. In the morning, Take on empty stomach at least 30 min before eating. For thyroid. - sucralfate (CARAFATE) 100 mg/mL suspension Take 10 mL by mouth four times daily. - Omeprazole Magnesium (PRILOSEC OTC) 20 mg tablet Take 1 tablet by mouth once daily. - cyanocobalamin (VITAMIN B-12) 1,000 mcg tab Take 1,000 mcg by mouth once daily. - hydrALAZINE (APRESOLINE) 25 mg tablet Take 50 mg by mouth two times a day at 6 am and 9 pm. - RESTASIS 0.05 % ophthalmic emulsion - [...] once daily. 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 [facility] 02-05-2025 Procedure note [facility] 02-05-2025 Progress note Note Date/Time February 05, 2025 2:51pm [facility] [address] [place] [address] OFFICE VISIT Date of Service: 02/05/25 MR#: [id number] Acct: [id number] Name: MICHAEL MEIER Rep #: [id number] : 1940 Provider: MIKE Watkins Age/Sex: 84/F [place] [facility] Status: Signed HPI HPI History of Present Illness Details: MICHAEL MEIER, is a 84 F who presents for a cardiovascular urgent follow-up visit. She is a lady with a history of paroxysmal atrial fibrillation, status post permanent pacemaker implantation and recent generator change, hypertension,obstructive sleep apnea and a previous history of TIA. Echocardiogram from February 2024 demonstrates an ejection fraction of 60%. Stage II diastolic dysfunction with moderate pulmonary hypertension. Patient was hospitalized for renal injury and low sodium. TTE on 11/29/24 showed moderate concentric left [...] moderate pulmonary hypertension. There was 2+ TR. Her diuretics were stopped during her hospital stay and duringher stay in rehab. She was encouraged to use compression stockings. She was also started on sodium tablets. She does acknowledge having a right heart catheterization at [facility] on 01/31/2025. Will obtain those records. From a cardiac standpoint, the patient is doing well. She does acknowledge occasional palpitations-with exertion. She denies any chest pain,pressure or heaviness. She does acknowledge worsening SOB. She denies Orthopnea, and PND. She does not have bleeding issues; no blood in urine, stool, or nosebleeds. She does acknowledge worsening fatigue. She denies myalgias, or claudication. She does not have edema, or sudden weight gain. She denies lightheadedness, dizziness, syncopal or near syncopal episodes, and headaches. Intake Vital Signs 12/31/24 10:08 02/05/25 14:12 Height 5 ft 5 in 5 ft 5 in Weight: 233 lb BMI 38.7 BP 128/64 H Blood Pressure Location Rt brachial Position Sitting Respiration 16 Pulse 62 Pulse Source NIBP Intake Visit Reasons: SOB/FATIGUE/LISA @ 2 Photolithographic Stripper Required: No Accompanied by: Friend Is patient in pain?: No Allergies ciprofloxacin (From Cipro) Allergy (Verified 02/05/25 14:35) Rash Penicillins (PCN) Allergy (Verified 02/05/25 14:35) Hives Sulfa (Sulfonamide Antibiotics) Allergy (Verified 02/05/25 14:35) Hives Beta-Blockers (Beta-Adrenergic Bloc Adverse Reaction (Verified 02/05/25 14:35) Other hydrocodone (From Vicodin) Adverse Reaction (Verified 02/05/25 14:35) Other lisinopril Adverse Reaction (Verified 02/05/25 14:35) cough meperidine (From Demerol) Adverse Reaction (Verified 02/05/25 14:35) Vomiting morphine Adverse Reaction (Verified 02/05/25 14:35) Other pravastatin Adverse Reaction (Verified 02/05/25 14:35) Other Medications ?Medication ?Instructions ?Recorded ?Confirmed ?Type aspirin 81 mg tablet,delayed 81 mg PO QDAY heart healt h #90 tabs 12/27/18 02/05/25 Rx release (Adult Low Dose Aspirin) coenzyme Q10 100 mg capsule (Co 100 mg PO QHS suppleme nt 01/23/20 02/05/25 History Q-10) rosuvastatin 10 mg tablet 10 mg PO QHS cholesterol 02/05/25 History sucralfate 100 mg/mL oral 10 ml PO TID PRN digestion 0 11/25/21 02/05/25 History suspension cyclosporine 0.05 % eye drops in a 1 drp EACH EYE Q12H eye health 09/27/23 02/05/25 History dropperette (Restasis) levothyroxine 50 mcg capsule 50 mcg PO QDAY Thyroid 02/05/25 History diltiazem HCl 240 mg 240 mg PO QHS heart #90 caps 05/15/24 02/05/25 Rx capsule,extended release 24 hr amiodarone 200 mg tablet 200 mg PO DAILY heart #90 ta bs 07/20/24 02/05/25 Rx losartan 100 mg tablet 100 mg PO DAILY blood pressu re #90 09/11/24 02/05/25 Rx tabs azelastine 0.05 % eye drops 1 drp ophthalmic (eye) BID PRN eye 11/02/24 02/05/25 History drops omeprazole 20 mg capsule,delayed 20 mg PO BID GERD 07/2502/05/25 History release acetaminophen 500 mg tablet 1,000 mg (2 x 500 mg) PO Q 6H PRN 12/13/24 02/05/25 Rx PRN Pain 1-10 Or Fever #90 tabs gabapentin 100 mg capsule 100 mg PO QHS #30 caps 12/1302/05/25 Rx hydralazine 50 mg tablet 75 mg (1.5 x 50 mg) PO TID # 90 tabs 12/13/24 02/05/25 Rx spironolactone 25 mg tablet 25 mg PO DAILY fluid reten tion #30 12/27/24 02/05/25 Rx tabs lidocaine 5 % topical patch 1 patch topical DAILY PRN pain 12/30/24 02/05/25 History meloxicam 15 mg tablet 15 mg PO DAILY PRN Joint adri n 12/30/24 02/05/25 History furosemide 20 mg tablet (Lasix) 20 mg PO DAILY #30 tab s 01/01/25 02/05/25 Rx buspirone 5 mg tablet 5 mg PO BID 02/05/25 5 History magnesium oxide 400 mg (241.3 mg 400 mg PO QDAY 02/05/25 History magnesium) tablet Ejection fraction %: 60 Have you fallen in the past year?: No Nurse's Note: [facility] heart cath 01/31/25 to check pulmonary pressure. [facility]. 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 Pulmonary hypertension GI bleed (2018) Essential (primary) hypertension Osteoarthritis Anxiety Daytime somnolence Dysmetabolic syndrome X Allergic rhinitis Malignant melanoma of skin of trunk, except scrotum Hyperlipidemia FH: sudden cardiac (SCD) Depression Paroxysmal atrial fibrillation Carotid artery disease Surgical History History of permanent cardiac pacemaker placement (06/09/21) History of esophagogastroduodenoscopy (EGD) (09/07/18) History of left heart catheterization (LHC) (05/2011) 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) History of total right knee replacement (TKR) (~08/2011) History of right hip replacement (~2003) History of cholecystectomy History of total left knee replacement (TKR) Family History Grandfather Myocardial infarction Sudden cardiac Father Myocardial infarction CAD (coronary artery disease) CHF (congestive heart failure) Mother Myocardial infarction CAD (coronary artery disease) A-fib Brother A-fib CHF (congestive heart failure) Brother Cancer Son Diabetes Son Hypertension Social History household members: none housing: house Smoking Status: Never smoker alcohol intake: never substance use type: does not use caffeine: Yes what type of physical activity do you participate in: none seatbelt use: always ROS Const Const: Positive for fatigue; Negative for weakness, fever(s), headache(s), chills, frequent falls, weight gain or weight loss Eyes Eyes: Negative for blind spots, loss of peripheral vision, transient loss of vision, blurry vision, change in vision, double vision, floaters or tunnel vision ENT ENT: Negative for headache(s), dizziness, Nosebleed/epistaxis, balance problems or neck pain Cardio Chest Pain: No Palpitations: Yes Edema: None Muscle aches with walking: None Resp Respiratory: Positive for SOB with activity and SOB at rest; Negative for SOB orthopnea\\SOB lying down GI GI: Negative nausea, vomiting, heartburn, bloating, vomiting blood/hematemesis, bright, red blood in stools or black,tarry stools Musc Musc: Negative for muscle aches/ myalgia, muscle weakness, joint pain or balanceproblems Neuro Neuro: Negative for dizziness, lightheadedness, near syncope, syncope, orthostatic symptoms, frequent falls, headache(s), weakness, blurry vision or double vision Dirk Hematologic/Lymphatic: Negative for easy bleeding or easy bruising Endo Endo: Positive for fatigue Cardiology Exam Const Appearance: cooperative, comfortable, no acute distress and well developed Nutritional Appearance: obese Orientation: alert, awake and oriented x3 In wheelchair Head Head: normal to inspection Ears: hearing grossly normal bilaterally Nose: external nose normal Face and Sinus: face symmetric Eyes General: appearance normal, both eyes and all related structures Eyelids: eyelids normal Conjunctivae: conjunctivae normal Pupils: PERRL EOM: EOM intact bilaterally Neck Neck: normal visual inspection and trachea midline; Negative no JVD Carotids: bruit Right Chest Chest inspection: normal inspection of the chest Auscultation: Bilateral: Diminished Lung Sounds Cardio Palpation: normal PMI Rate: regular rate Rhythm: regular rhythm Heart sounds: S1 normal and S2 normal; Negative rub, gallop or murmur GI GI: normal to inspection, soft and obese Neuro General: patient alert, patient awake, patient oriented x3 and CN's II-XI intactbilaterally Extremities Pulses: Normal: Right Posterior Tibial Pulse, Left Posterior Tibial Pulse, RightRadial Pulse and Left Radial Pulse Lower Extremity Edema: Trace: Bilateral Psych Psychological: normal affect Supplemental Info Supplemental Information Echo Complete 10/2024 Interpretation Summary Normal LV size. Left ventricular systolic function is normal. Moderate concentric left ventricular hypertrophy. The left ventricular ejection fraction is 60 %. Pulmonary artery systolic pressure is 65 mmHg. Moderate pulmonary hypertension. Echocardiogram 02/2024: Normal LV size. Left ventricular systolic function is normal. The left ventricular ejection fraction is 60 %. The left atrium is moderately enlarged. Stage 2 diastolic dysfunction. Moderate pulmonary hypertension. Carotid Duplex Ultrasound 07/2024 Interpretation Summary Mild (<50%) stenosis right extracranial internal carotid. Mild (<50%) stenosis left extracranial internal carotid. Patent and antegrade vertebrals bilaterally. Labs: LDL Cholesterol, (0-130) 66 mg/dL HDL Cholesterol, (40-) 56 mg/dL Cholesterol, (<=200) 109 mg/dL Triglycerides, (-199) 85 mg/dL Diagnostics: Electrocardiogram Echocardiogram Pacemaker Check Pacemaker Procedure Note Chest X-Ray Chest CTA Abdomen/Pelvis CT Carotid Duplex Holter Monitor Pulmonary: Sleep Lab Past Visits: Cardiology Visit Today Assessment and Plan Assessment and Plan (1) Paroxysmal atrial fibrillation: Status: Chronic Plan: Patient has a history of paroxysmal atrial fibrillation. Her EKG from today demonstrates atrial paced rhythm with heart rate of 60 bpm, QT/QTc: 458/458. Her most recent pacemaker interrogation demonstrated 0 mode switch episodes. Patient's [id number] score is 5. She is currently not anticoagulated due to history of GI bleeds. She will continue aspirin 81 mg daily, amiodarone 200 mg daily, and diltiazem 240 mg daily. She will continue to monitor for any concerning symptoms of atrial fibrillation. (2) Essential (primary) hypertension: Status: Chronic Plan: Patient has a history of hypertension. Her blood pressure is well-controlled atthis time?128/64. She will continue with her current medical therapy, along with monitoring her blood pressures at home. She will notify our office of any persistently elevated or low blood pressure readings. (3) History of permanent cardiac pacemaker placement: Status: Chronic Comment: 01/29/2011; Gen Change 06/09/21. History of sick sinus syndrome. Plan: Patient has a permanent cardiac pacemaker. Her interrogation prior to her office visit today demonstrated a presenting rhythm of AP/VS at 60 ppm. 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 There were no MS episodes noted, and 8 ventricular high rate episodes detected. Patient's battery life is 6-6.8 years. She will continue with regularly scheduled pacemaker interrogations. (4) Pulmonary hypertension: Status: Chronic Comment: PA systolic on transthoracic echocardiogram done 11/29/2024 was estimated at 65 which is consistent with moderate pulmonary hypertension. Plan: Patient does have pulmonary hypertension. She recently underwent a right cardiac catheterization at [facility]. She states this was noted to be normal. Will obtain those results. She will continue spironolactone 25 mg daily, along with following with her receivable manager. (5) USP current use of amiodarone: Status: Chronic Plan: At this time, patient will continue amiodarone 200 mg daily. She does obtain PFTs with her receivable manager. Would like to obtain a chest x-ray, and TSH to assess lung and thyroid function. Depending on results, further recommendationswill be made. (6) Fatigue: Status: Acute Plan: Patient acknowledges fatigue. Would like to obtain a chemical nuclear stress test, and lab work to further assess this. Depending on results, further recommendations will be made. (7) WELCH (dyspnea on exertion): Status: Acute Plan: Patient does acknowledge worsening dyspnea on exertion. She states she has had a right cardiac catheterization at [facility] on 01/31/2025, which demonstrated normal. Will obtain those records. Will obtain a chemical nuclear stress test to assessfor any ischemia that may be contributing to worsening shortness of breath and fatigue. Would also like to obtain a chest x-ray, and lab work to further assess this. Depending on results, further recommendations will be made. (8) Right carotid bruit: Status: Acute Comment: Carotid US in July of 2024 showed less than 50% stenosis Plan: Patient has a right carotid bruit. Her most recent carotid duplex ultrasound from July 2024 demonstrated mild less than 50% stenosis bilaterally. This was reviewed with patient. She will continue aspirin 81 mg daily, and rosuvastatin 10 mg daily. Orders: Orders 12 Lead EKG performed by [facility] Today I48.0 - Paroxysmal atrial fibrillation, Z79.899 - Other group home (current) drug therapy Nuclear Stress Test - Chemical Today R06.02 - Shortness of breath, R53.83 - Other fatigue Thyroid Stim Hormone (TSH) Today R53.83 - Other fatigue Pro- Brain NATRIURETIC PEPTIDE Today R06.02 - Shortness of breath Basic Metabolic Profile (BMP) Today R06.02 - Shortness of breath CBC W/Diff, Automated Today R06.02 - Shortness of breath Chest PA and Lateral Today R06.02 - Shortness of breath Plan Details Additional Comments: Patient will follow-up in 6-8 weeks, or sooner if needed. Thank you for allowing me to participate in the care of your patient. Please donot hesitate to call if any issues arise. This note was generated using a voice recognition system and there may be incorrect words, spelling, or punctuation that were not noted when reviewing theoffice note prior to saving. Portions of this documentation were copied and pasted from previous office visitnotes to provide cohesive continuity of the history. The note has been reviewed,edited, and updated, as necessary. 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 Z79.899 Fatigue R53.83 WELCH (dyspnea on exertion) R06.09 Right carotid bruit R09.89 Coding Level of Care Code Off vis,est,level 4 Diagnoses Paroxysmal atrial fibrillation I48.0 Essential (primary) hypertension I10 History of permanent cardiac pacemaker placement Z95.0 Pulmonary hypertension I27.20 USP current use of amiodarone Z79.899 Fatigue R53.83 WELCH (dyspnea on exertion) R06.09 Right carotid bruit R09.89 Clinical Quality Measures Falls Risk Screening/Assistive Devices Have you fallen in the past year?: No Cardiac Ejection fraction %: 60 02/05/25 1524 <Electronically signed by Kristal ERVINC> Date _ Kristal MCKEON Cosigner Signature: Date (if applicable) CC: ~ [employer] Work Phone: [phone] 367-299809-12-2025 NoteHNO ID: [id number] Author: NOEMY HAIRSTON MD Service: ? Author Type: Physician Type: Progress Notes Filed: 01/12/2025 11:07 Note Text: Patient Name: Michael Meier PRIMARY CARE PHYSICIAN: Michael Puga DO Date of visit: January 12, 2025 COMMUNICATION WILL BE SENT VIA SHARED MEDICAL RECORDS OR US MAIL. Subjective: Michael Meier is a 84 year old female who is new to this clinic for evaluation of exertional dyspnea and possible pulmonary hypertension. This is a referral from Dr Owen Alcala. In brief summary, patient with PMH significant for allergic rhinitis, AF on amiodarone, melanoma, JOSE not tolerant of CPAP, CVA, HTN, HLD being referred for evaluation of SOB and abnormal PFTs. She started the visit by stating she has history of pulmonary hypertension in which she received the diagnosis 2 years ago. Denies history of lung disease otherwise, as no hx of asthma or COPD . She is lifelong non smoker. With regards to symptoms, she endorses severe exertional dyspnea. Minimal activities such as short walks around her house, getting dressed, taking shower, as well as additional ADLs. Thus pretty much any minimal exertion results in dyspnea. Currently does not need supplemental O2 (recently tested). Denies chest pain, palpitations, LH/syncope, fevers, chills, or NS. She did have pedal edema recently, but this resolved with lasix regimen (see below). She tells me she was recently hospitalized (sent from Dr Pineda office) for acute shortness of breath. She was sent to hospital due to severe respiratory distress in which she was hospitalized for 3 days. She was told she was having a heart failure exacerbation. She endorses low sodium diet. Works with PT as form of exercise. Was on trial of prn albuterol, but no improvement in symptoms. Was referred here for RHC evaluation. QUESTIONS SURROUNDING PULMONARY HYPERTENSION RISK: Prior diet pill use? Yes - many - doesn't recall names Prior use of amphetamines? No H/o DVT or PE? No Prior liver disease? No Prior HIV/Hepatitis B or C risk? No H/o splenectomy? No Prior thyroid disease? Hypothyroidism on synthroid Prior lung disease? No, although did have pneumonia years ago Family h/o PAH?No Snoring or witnessed apneas? Yes - JOSE on PAP Arthralgias? Yes - hips, back, neck, spinal stenosis Skin rash or lesions? No Raynaud's symptoms? No PMHx: PAST MEDICAL HISTORY Diagnosis Date A-fib (HCC) Allergic rhinitis, cause unspecified Arrhythmia Arthritis Greater trochanteric bursitis of left hip Melanoma of skin, site unspecified 2004 back Osteoarthritis of left hip Other and unspecified hyperlipidemia Pulmonary hypertension (HCC) Situational mixed anxiety and depressive disorder Sleep apnea Stroke (HCC) Unspecified essential hypertension Unspecified gastritis and gastroduodenitis MEDICATIONS: losartan (COZAAR) 100 mg tablet Take 100 mg by mouth once daily. furosemide (LASIX) 20 mg tablet Take 20 mg by mouth once daily. spironolactone (ALDACTONE) 25 mg tablet Take 25 mg by mouth once daily. sertraline (ZOLOFT) 25 mg tablet Take 25 [...] by mouth once daily. Take with food. blood sugar diagnostic test strip Use with blood glucose test 2 times daily, Insulin Dep? No Lancets Use with blood glucose test 2 times daily. Insulin Dep? No alcohol swabs Use with blood glucose test 2 times daily. Insulin Dep? No levothyroxine (SYNTHROID) 50 mcg tablet Take 1 [...] day at 6 am and 9 pm. RESTASIS 0.05 % ophthalmic emulsion Azelastine HCl (OPTIVAR) 0.05 % ophthalmic solution aspirin, enteric coated (ASPIRIN, ENTERIC COATED) 81 mg EC tablet Take 81 mg by mouth once daily. PACERONE 200 mg tablet Take 200 mg by mouth once daily. ubidecarenone (COQ-10 ORAL) Take by mouth. diltiazem CD (CARDIZEM CD) 240 mg 24 hr capsule Take 1 capsule by mouth once daily. Allergies: Ciprofloxacin, Demerol [Meperidine (Pf)], Opioids - Morphine Analogues, Opioids-Meperidine And Related, Penicillin G, Pravachol [Pravastatin Sodium], Sulfa (Sulfonamide Antibiotics), Vicodin [Hydrocodone-Acetaminophen], and Zithromax [Azithromycin] PHYSICAL EXAM: BP (more content not included)...[facility]09-12-2025 History of Present illness Narrative* Noemy Hairston MD - 01/12/2025 10:25 AM EDT Images from the original note were not included. Patient Name: Michael Meier PRIMARY CARE PHYSICIAN: Michael Puga DO Date of visit: January 12, 2025 COMMUNICATION WILL BE SENT VIA SHARED MEDICAL RECORDS OR US MAIL. Subjective: Michael Meier is a 84 year old female who is new to this clinic for evaluation of exertional dyspnea and possible pulmonary hypertension. This is a referral from Dr Owen Alcala. In brief summary, patient with PMH significant for allergic rhinitis, AF on amiodarone, melanoma, JOSE not tolerantof CPAP, CVA, HTN, HLD being referred for evaluation of SOB and abnormal PFTs. She started the visit by stating she has history of pulmonary hypertension in which she received the diagnosis 2 years ago. Denies history of lung disease otherwise, as no hx of asthma or COPD . She is lifelong non smoker. With regards to symptoms, she endorses severe exertional dyspnea. Minimal activities such as short walks around her house, getting dressed, taking shower, as well as additional ADLs. Thus pretty muchany minimal exertion results in dyspnea. Currently does not need supplemental O2 (recently tested).Denies chest pain, palpitations, LH/syncope, fevers, chills, or NS. She did have pedal edema recently, but this resolved with lasix regimen (see below). She tells me she was recently hospitalized (sent from Dr Pineda office) for acute shortness of breath. She was sent to hospital due to severe respiratory distress in which she was hospitalized for 3 days. She was told she was having a heart failure exacerbation. She endorses low sodium diet. Works with PT as form of exercise. Was on trial of prn albuterol, but no improvement in symptoms. Was referred here for RHC evaluation. QUESTIONS SURROUNDING PULMONARY HYPERTENSION RISK: Prior diet pill use? Yes - many - doesn't recall names Prior use of amphetamines? No H/o DVT or PE? No Prior liver disease? No Prior HIV/Hepatitis B or C risk? No H/o splenectomy? No Prior thyroid disease? Hypothyroidism on synthroid Prior lung disease? No, although did have pneumonia years ago Family h/o PAH?No Snoring or witnessed apneas? Yes - JOSE on PAP Arthralgias? Yes - hips, back, neck, spinal stenosis Skin rash or lesions? No Raynaud's symptoms? No PMHx: PAST MEDICAL HISTORY Diagnosis Date A-fib (HCC) Allergic rhinitis, cause unspecified Arrhythmia Arthritis Greater trochanteric bursitis of left hip Melanoma of skin, site unspecified 2003 back Osteoarthritis of left hip Other and unspecified hyperlipidemia Pulmonary hypertension (HCC) Situational mixed anxiety and depressive disorder Sleep apnea Stroke (HCC) Unspecified essential hypertension Unspecified gastritis and gastroduodenitis MEDICATIONS: losartan (COZAAR) 100 mg tablet Take 100 mg by mouth once daily. furosemide (LASIX) 20 mg tablet Take 20 mg by mouth once daily. spironolactone (ALDACTONE) 25 mg tablet Take 25 mg by mouth once daily. sertraline (ZOLOFT) 25 mg tablet Take 25 [...] by mouth once daily. Take with food. blood sugar diagnostic test strip Use with blood glucose test 2 times daily, Insulin Dep? No Lancets Use with blood glucose test 2 times daily. Insulin Dep? No alcohol swabs Use with blood glucose test 2 times daily. Insulin Dep? No levothyroxine (SYNTHROID) 50 mcg tablet Take 1 [...] day at 6 am and 9 pm. RESTASIS 0.05 % ophthalmic emulsion Azelastine HCl (OPTIVAR) 0.05 % ophthalmic solution aspirin, enteric coated (ASPIRIN, ENTERIC COATED) 81 mg EC tablet Take 81 mg by mouth once daily. PACERONE 200 mg tablet Take 200 mg by mouth once daily. ubidecarenone (COQ-10 ORAL) Take by mouth. diltiazem CD (CARDIZEM CD) 240 mg 24 hr capsule Take 1 capsule by mouth once daily. Allergies: Ciprofloxacin, Demerol [Meperidine (Pf)], Opioids - Morphine Analogues, Opioids- Meperidine And Related, Penicillin G, Pravachol [Pravastatin Sodium], Sulfa (Sulfonamide Antibiotics), Vicodin [Hydrocodone-Acetaminophen], and Zithromax [Azithromycin] PHYSICAL EXAM: BP 121/63 Pulse 60 Temp (Src) 95.3 (Temporal) Resp 18 Ht 5' 5" (1.65m) Wt 233 lb 12.8 oz (106.1kg) SpO2 98% BMI 38.91 kg/(m^2). Last Wt 01/12/25 106.1 kg (233 lb 12.8 oz) 12/20/24 111.6 kg (246 lb) 08/30/24 104.3 kg (230 lb) 06/21/24 100.2 kg (221 lb) ] General- nad, comfortable in general appearance, ambulates with walker CV- RRR, no M/G/R Resp- clear to auscultation bilaterally, no wheezes or crackles, breathing nonlabored Abd- +bs, soft, nt, nd Ext- no clubbing, cyanosis, 1+ pedal edema Psych- appropriate mood and affect Labs / Imaging / Diagnostic Studies: Diagnostic tests reviewed for today's visit, films/specimens were personally reviewed by me. CXR 10/2024 CXR 2022: Degree of hyperinflation noted, no impressive consolidations. Mild atelectatic changes PFT (unknown date): Review pulmonary function test show small airways obstruction that improves with bronchodilators TTE 02/2024 Assessment: - Exertional dyspnea - Suspect multifactorial - Chronic HFpEF (a/w moderate LA dilatation on TTE) - Moderate MR - A.Fib s/p PPM - Pulmonary hypertension a/w marked TR (RVSP 66mmHg on TTE 02/2024) - JOSE - Now compliant with PAP - Physical deconditioning - Morbid Obesity (BMI > 40) Plan: - Overall etiology of severe exertional dyspnea is multifactorial given patient's underlying comorbidities including chronic HFpEF, A.Fib (s/p PM), moderate MR, obesity, physical deconditioning (which I suspect is contributing significantly), and recent concerns for pulmonary hypertension. Also in d ifferential is possible chronotropic insufficiency given relatively high dose of CCB (ie diltiazem). 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 That being said, given severity of symptoms and degree of TR, I do agree that RHC is warranted for further evaluation of PH. - We had lengthy discussion with regards to pursuing right heart catheterization (RHC) including discussion of the procedure itself, risk, benefits, and alternative approaches in care. Patient understands procedure, risks/benefit profile, and agrees to undergo RHC. Will schedule - Recommend continued follow up otherwise with Dr Alcala and her reimbursement representative, in which the latteris for optimization of chronic HFpEF. Patient not on SGLT2i which may be very beneficial. - Continue PAP therapy given ongoing compliance and clinical benefit. Return if symptoms worsen or fail to improve. High Risk Interventions/Procedures: Right heart catheterization Noemy Hairston MD January 12, 2025 10:25 AM documented in [facility] Discharge summary Author Jonny Vicente [facility] Note Date/Time January 01, 2025 9:11am [facility] Medical Records Department [address] [place] [address] Instructions for Home/Discharge Instructions 01/01/25 0904 MR#: [id number] Acct: [id number] Name: MICHAEL MEIER Rep #:[id number] : 1940 84 From: Jonny pacheco MD PCP: Karen Johnson, JACOBO, APPLIQUE CUTTER-C Statu s:ADM IN Discharge Instructions DC O2, CPAP, BIPAP [...] if applicable. Discharge Plan Admission Admit Date/Time: 12/29/24 16:24 Attending Provider: Jonny Vicente Primary Care Provider: Karen Johnson Consulting Providers: Len Nicolas Discharge Orders/Prescriptions Prescriptions: New furosemide [Lasix] 20 mg tablet 20 mg PO DAILY Qty: 30 0RF Continued aspirin [Adult Low Dose Aspirin] 81 mg tablet,delayed release (DR/EC) 81 mg PO QDAY Qty: 90 3RF rosuvastatin 10 mg tablet 10 mg PO QHS coenzyme Q10 [Co Q-10] 100 mg capsule 100 mg PO QHS sucralfate 100 mg/mL suspension 10 ml PO TID PRN (Reason: digestion) Patient Comments: TAKE 10 ML BY MOUTH 4 TIMES DAILY levothyroxine 50 mcg capsule 50 mcg PO QDAY omeprazole 20 mg capsule,delayed release(DR/EC) 20 mg PO BID sodium chloride 1,000 mg tablet,soluble 1,000 mg PO QDAY Qty: 60 0RF spironolactone 25 mg tablet 25 mg PO DAILY Qty: 30 11RF cyclosporine [Restasis] 0.05 % dropperette 1 drp EACH EYE Q12H meloxicam 15 mg tablet 15 mg PO DAILY PRN (Reason: Joint pain) Rx Instructions: Take this with food. lidocaine 5 % Adhesive Patch,Medicated 1 patch topical DAILY PRN (Reason: pain) Protocol: *Topical Application Instructions APPLICATION INSTRUCTIONS: left outer hip Rx Instructions: remove the patch 12 H after it is applied. vitamin B complex [Balanced B-50] Tablet 1 tab PO DAILY azelastine 0.05 % drops 1 drp ophthalmic (eye) BID PRN (Reason: eye drops) acetaminophen 500 mg Tablet 1,000 mg PO [...] 100 mg PO QHS Qty: 30 0RF sertraline 25 mg tablet See Rx [...] total of 75 mg 3 times aday. diltiazem HCl 240 mg capsule,extended release 24hr 240 mg PO QHS Qty: 90 3RF amiodarone 200 mg tablet 200 mg PO DAILY Qty: 90 3RF losartan 100 mg tablet 100 mg PO DAILY Qty: 90 3RF Referrals / Follow Up: Anabel Horne PA [Med Staff - [facility]] - Within 1 Month Karen Johnson, APPLIQUE CUTTER-C [Primary Care Provider] - Within 1 Week Disposition Disposition (needs filled in before D/C Order can be placed): Home, Self Care 01/01/25 0911<Electronically signed by Jonny Vicente MD>Jonny Vicente MD CC: JACOBO APPLIQUE CUTTER-C Karen Johnson; Dr. Len Nicolas MD ~ Signed [facility] Work Phone: 1(851) 413-391208-31-2025 Progress note Author Jonny Vicente [facility] Note Date/Time December 31, 2024 1: [address] [place] [address] System Medical Records Department [address] [place] [address] Progress Note - Hospitalist 12/31/24 1330 MR#: [id number] Acct: [id number] Name: MICHAEL MEIER Rep #:[id number] 1 : 1940 84 From: Jonny pacheco MD PCP: JACOBO Hernandez, APPLIQUE CUTTER-C Statu s:ADM IN Location: [place] [address] Subjective Subjective Doing well, no issues overnight. She does not need oxygen at rest or wtih ambulation Objective Data Objective Data Vital Signs: Vital Signs Temp Pulse Resp BP Pulse Ox O2 Del Method O2 Flow Rate 97.0 F L 60 18 133/49 H 92 Room Air 2 12/31/24 08:36 12/31/24 08:36 12/31/24 09:10 12/31/24 08:36 12/31/24 09:10 12/31/24 09:10 12/31/24 09:00 Oxygen Flow Rate (L/min) 2 Oxygen Delivery Method Room Air Weight: 245 lb 2.464 oz Body Mass Index (BMI) 40.8 Intake & Output: Intake and Output for Last 24 Hours 12/30/24 12/31/24 01/01/25 03:59 03:59 03:59 Intake Total 360 / 360 1120 / 1120 200 / 200 Output Total 650 / 650 2200 / 2200 1450 / 1450 Balance -290 / -290 -1080 / -1080 -1250 / -1250 Lab / Micro Data 12/31/24 04:55 12/31/24 04:55 Labs: Laboratory Results - last 24 hr 12/31/24 04:55: WBC 7.7, RBC 2.94 L, Hgb 9.2 L, Hct 27.4 L, MCV 93.2 D, MCH 31.3, MCHC 33.6 D, RDW Std Deviation 52.3 H, RDW Coeff of Chandu 15.4 H, Plt [id number], MPV 10.5, Immature Gran % (Auto) 0.400, Neut % (Auto) 67.2, Lymph % (Auto) 16.5 L, Kenedy % (Auto) 12.4 H, Eos % (Auto) 2.7, Baso % (Auto) 0.8, Absolute Neuts (auto) 5.1, Absolute Lymphs (auto) 1.26, Nucleated RBC % 0, Sodium 142, Potassium 3.2 L, Chloride 103, Carbon Dioxide 26.7, Anion Gap 13, BUN 21 H, Creatinine 1.11, Estim Creat Clear Calc 47.50 L, Est GFR (MDRD) Non-Af 49 L, BUN/Creatinine Ratio 19.2, Glucose 105 H, Calcium 8.7 Physical Exam Narrative General: Alert, Oriented x3, Cooperative, No apparent distress HEENT: Atraumatic, PERRLA, EOMI, Normocephalic Oral: Moist Mucosa Neck: Supple, No JVD Lungs: Diminished, Normal air movement, bibasilar crackles, No wheeze, No rales Cardiovascular: Regular rate, Regular Rhythm, Normal S1, Normal S2, No murmurs Abdomen: Soft, Non Tender, Non-Distended, No Hepato-splenomegaly Extremities: Trace edema, Capillary Refill Less than 3 Seconds Skin: No rashes, No breakdown Musculoskeletal: No Tenderness to Palpation of Joints or Extremities Neurological: No focal neurological deficits, Motor Exam 5/5 strength throughout, Sensory exam intact to light touch and pain Psych/Mental Status: Normal Affect, Appropriate Assessment & Plan Assessment/Plan (1) Acute exacerbation of CHF (congestive heart failure): QUALIFIERS: Heart failure type: diastolic Qualified Code(s): I50.33 - Acute on chronic diastolic (congestive) heart failure PLAN: Plan 1. Acute hypoxic respiratory insufficiency secondary to acute on chronic diastolic CHF with moderate pulmonary hypertension ? Continue with Lasix ? Echo from 11/29/2024 with an EF of 60% and a PASP of 65 mmHg with moderate leftventricular hypertrophy ? No need to repeat echocardiogram ? Ambulatory pulse ox did not demonstrate a need for oxygen at rest or with ambulation however she lives alone and is afraid of going home today would like to try 1 more day with continued IV Lasix 2. Paroxysmal A-fib/essential HTN/HLD ? Resume her home blood pressure medications we will monitor make adjustments asnecessary ? Continue with amiodarone and Aldactone ? She is not on anticoagulant candidate secondary to GI bleed history ? Continue with low-dose aspirin ? Continue with Lipitor 3. Hypothyroidism ? Stable ? Continue Synthroid 4. GERD with a history of GI bleed ? Stable ? Continue with PPI 5. Anxiety/depression ? Stable ? Continue with Zoloft DVT: Heparin Charges/Coding Visit Charges Inpatient E&M: 83875 Subs Hosp L2 12/31/24 1332 <Electronically signed by Jonny Vicente MD> Cosigner Signature (if applicable): CC: ~ Signed [facility] Work Phone: 1(329) 767-407408-30-2025 Progress note Author Jonny Vicente [facility] Note Date/Time December 30, 2024 11 :41am [facility] Medical Records Department [address] [place] [id number] Progress Note - Hospitalist 12/30/24 1135 MR#: [id number] Acct: [id number] Name: MICHAEL MEIER Rep #:[id number] 1 : 1940 84 From: Jonny pacheco MD PCP: Karen Johnson, VSC, APPLIQUE CUTTER-C Statu s:ADM IN Location: [place] [address] Subjective Subjective Respiratory status remains about the same, she does not wear oxygen at home. Objective Data Objective Data Vital Signs: Vital Signs Temp Pulse Resp BP Pulse Ox O2 Del Method O2 Flow Rate 97.8 F 60 16 137/56 H 99 Nasal Cannula 3 12/30/24 11:06 12/30/24 11:06 12/30/24 11:06 12/30/24 11:06 12/30/24 11:06 12/30/24 11:06 12/30/24 11:06 Oxygen Flow Rate (L/min) 3 Oxygen Delivery Method Nasal Cannula Weight: 243 lb 6.245 oz Body Mass Index (BMI) 40.5 Intake & Output: Intake and Output for Last 24 Hours 12/29/24 12/30/24 12/31/24 03:59 03:59 03:59 Intake Total 360 / 360 Output Total 650 / 650 200 / 200 Balance -290 / -290 -200 / -200 Lab / Micro Data 12/30/24 03:30 12/30/24 03:30 Labs: Laboratory Results - last 24 hr 12/29/24 13:18: WBC 9.4, RBC 3.37 L, Hgb 10.3 L, Hct 31.5 L, MCV 93.5, MCH 30.6,MCHC 32.7, RDW Std Deviation 53.2 H, RDW Coeff of Chandu 15.6 H, Plt Count , MPV 12.0, Immature Gran % (Auto) 0.900, Neut % (Auto) 75.3 H, Lymph % (Auto) 12.6 L,Kenedy % (Auto) 9.2, Eos % (Auto) 1.4, Baso % (Auto) 0.6, Absolute Neuts (auto) 7.0, Absolute Lymphs (auto) 1.18, Nucleated RBC % 0, Platelet Estimate ADEQUATE,Sodium 140, Potassium 3.8, Chloride 103, Carbon Dioxide 22.4, Anion Gap 15, BUN 20 H, Creatinine 0.96, Estim Creat Clear Calc 56.24, Est GFR (MDRD) Non-Af 59 L,BUN/Creatinine Ratio 21.3 H, Glucose 109 H, Calcium 9.3, Troponin T High Sens 23H, NT pro BNP II 1033 12/29/24 15:31: Magnesium 2.3 H, Troponin T Hi Sens 2 Hr 23 H 12/29/24 19:27: Troponin T Hi Sens 4Hr 25 H 12/30/24 03:30: WBC 7.8, RBC 2.79 L, Hgb 8.5 L, Hct 28.6 L, MCV 102.5 H D, MCH 30.5, MCHC 29.7 L D, RDW Std Deviation 59.0 H, RDW Coeff of Chandu 15.6 H, Plt Count 201, MPV 11.1, Immature Gran % (Auto) 0.500, Neut % (Auto) 67.6, Lymph % (Auto) 14.2 L, Kenedy % (Auto) 13.8 H, Eos % (Auto) 2.6, Baso % (Auto) 1.3 H, Absolute Neuts (auto) 5.3, Absolute Lymphs (auto) 1.11, Nucleated RBC % 0, Sodium 139, Potassium 3.6, Chloride 105, Carbon Dioxide 21.9, Anion Gap 12, BUN 21 H, Creatinine 1.05, Estim Creat Clear Calc 50.09, Est GFR (MDRD) Non-Af 53 L,BUN/Creatinine Ratio 19.8, Glucose 97, Calcium 8.4, Phosphorus 4.0, Triglycerides 85, Cholesterol 109, LDL Cholesterol, Calc 36, VLDL Cholesterol 17, HDL Cholesterol 56, Cholesterol/HDL Ratio 1.96, TSH 3.700 Radiography Diagnostic Testing: Radiology Impression Chest X-Ray 12/29/24 13:40 IMPRESSION: Borderline cardiomegaly. Vascular congestion and CHF. Blunting of both costophrenic angles worse on the right side. Reading Location: [facility] Physical Exam Narrative General: Alert, Oriented x3, Cooperative, No apparent distress HEENT: Atraumatic, PERRLA, EOMI, Normocephalic Oral: Moist Mucosa Neck: Supple, No JVD Lungs: Diminished, Normal air movement, bibasilar crackles, No wheeze, No rales Cardiovascular: Regular rate, Regular Rhythm, Normal S1, Normal S2, No murmurs Abdomen: Soft, Non Tender, Non-Distended, No Hepato-splenomegaly Extremities: Edema, Capillary Refill Less than 3 Seconds Skin: No rashes, No breakdown Musculoskeletal: No Tenderness to Palpation of Joints or Extremities Neurological: No focal neurological deficits, Motor Exam 5/5 strength throughout, Sensory exam intact to light touch and pain Psych/Mental Status: Normal Affect, Appropriate Assessment & Plan Assessment/Plan (1) Acute exacerbation of CHF (congestive heart failure): QUALIFIERS: Heart failure type: diastolic Qualified Code(s): I50.33 - Acute on chronic diastolic (congestive) heart failure PLAN: Plan 1. Acute hypoxic respiratory insufficiency secondary to acute on chronic diastolic CHF with moderate pulmonary hypertension ? Continue with Lasix ? Echo from 11/29/2024 with an EF of 60% and a PASP of 65 mmHg with moderate leftventricular hypertrophy ? No need to repeat echocardiogram 2. Paroxysmal A-fib/essential HTN/HLD ? Resume her home blood pressure medications we will monitor make adjustments asnecessary ? Continue with amiodarone and Aldactone ? She is not on anticoagulant candidate secondary to GI bleed history ? Continue with low-dose aspirin ? Continue with Lipitor 3. Hypothyroidism ? Stable ? Continue Synthroid 4. GERD with a history of GI bleed ? Stable ? Continue with PPI 5. Anxiety/depression ? Stable ? Continue with Zoloft DVT: Heparin Charges/Coding Visit Charges Inpatient E&M: 84070 Subs Hosp L2 12/30/24 1141 <Electronically signed by Jonny Vicente MD> Cosigner Signature (if applicable): CC: ~ Signed [facility] Work Phone: 1(346) 491-251608-29-2025 History and physical note Author Len Nicolas [facility] Note Date/Time December 29, 2024 5: 21pm [facility] Medical Records Department [address] [place] [address] H&P Exam - Hospitalist 12/29/24 1631 MR#: [id number] Acct: [id number] Name: MICHAEL MEIER Rep #:[id number] 6 : 1940 84 From: Len Souza PCP: Karen Johnson Marilee, APPLIQUE CUTTER-C Statu s:ADM IN Location: [id number] HPI - General General Date of Admission: 12/29/24 Date of Service: 12/29/24 Chief Complaint: Progressive worsening of shortness of breath for about 2 weeks HPI Narrative MICHAEL MEIER, is a 84 F with multiple comorbidities and chronic shortness of breath, pulmonary hypertension 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 Owen Alcala was sentto patient ED for shortness of breath, increased swelling. She also had numbness in tingling in left lower leg. Patient is stated Droxy really has not been feeling its right heart cath for evaluation of pulmonary hypertension and its medication but that will be the elective procedure. In ED, she was found to have short of breath and patient states that for last 2 weeks she gets short of breath even with ADLs/minor activities. She has gained about 8 to 9 pounds in last 3 to 4 days along with leg swelling and abdominal distention. She was evaluated by ED documentation not addressed in the H&P havebeen ruled out, unless otherwise noted/mentioned. On 12/23 for similar symptoms and was sent home treatment. She denies chest pain pressure or tightness. In the ED, her assessment was more consistent with CHF exacerbation therefore furosemide 40 mg IV was given. Her vitals shows BP high at 170/78, heart rate 60/min, pulse ox 100% on room air but she desaturated on ambulation therefore being admitted [facility] Medical History Morbid obesity with BMI of 40.0-44.9, adult Hypothyroidism Tricuspid regurgitation Left atrial enlargement Moderate left ventricular hypertrophy Frequent falls CHF (congestive heart failure) Encounter for monitoring diuretic therapy USP current use of amiodarone Right carotid bruit Pulmonary hypertension GI bleed (2018) Essential (primary) hypertension Osteoarthritis [...] 50 mcg PO QDAY Thyroid 12/03/24 History fluticasone propionate 110 1 inh inhalation Q12H SOB/W heezing 04/30/24 12/03/24 History mcg/actuation HFA aerosol inhaler vitamin B complex (Balanced B-50 1 tab PO DAILY supple ment 04/30/24 Unknown History tablet) diltiazem HCl 240 mg 240 mg PO QHS heart #90 caps 05/15/24 12/02/24 Rx capsule,extended release 24 hr amiodarone 200 mg tablet 200 mg PO DAILY heart #90 ta bs 07/20/24 Unknown Rx losartan 100 mg tablet 100 mg PO DAILY blood pressu re #90 09/11/24 12/03/24 Rx tabs azelastine 0.05 % eye drops 1 drp ophthalmic (eye) BID PRN eye 11/02/24 Unknown History drops omeprazole 20 mg capsule,delayed 20 mg PO QDAY GERD Unknown History release acetaminophen 500 mg tablet 1,000 mg (2 x 500 mg) PO Q 6H PRN 12/13/24 Unknown Rx PRN Pain 1-10 Or Fever #90 tabs gabapentin 100 mg capsule 100 mg PO QHS #30 caps 12/13 Unknown Rx hydralazine 25 mg tablet 25 mg PO TID #90 tabs Unknown Rx hydralazine 50 mg tablet 75 mg (1.5 x 50 mg) PO TID # 90 tabs 12/13/24 Unknown Rx lidocaine 5 % topical patch 1 patch topical DAILY #30 ea 12/13/24 Unknown Rx meloxicam 15 mg tablet 15 mg PO DAILY Joint pain #1 TAB 12/13/24 Unknown Rx sertraline 25 mg tablet See Rx Instructions .Route 0 12/13/24 Unknown Rx .COMPLEX #42 tabs sodium chloride 1,000 mg soluble 1,000 mg PO QDAY #60 tabs 12/27/24 Unknown Rx tablet spironolactone 25 mg tablet 25 mg PO DAILY fluid reten tion #30 12/27/24 Unknown Rx tabs Allergy/AdvReac Type Severity Reaction Status Date / Time ciprofloxacin (From Cipro) Allergy Rash Verified 12/29/24 13:12 Penicillins (PCN) Allergy Hives Verified 12/29/24 13:12 Sulfa (Sulfonamide Allergy Hives Verified 12/29/24 13:12 Antibiotics) Beta-Blockers AdvReac Other Verified 12/29/24 13:12 (Beta-Adrenergic Bloc hydrocodone (From Vicodin) AdvReac Other Verified 12/29/24 13:12 lisinopril AdvReac cough Verified 12/29/24 13:12 meperidine (From Demerol) AdvReac Vomiting Verified 12/29/24 13:12 morphine AdvReac Other Verified 12/29/24 13:12 pravastatin AdvReac Other Verified 12/29/24 13:12 Family History Grandfather Myocardial infarction Sudden cardiac [...] total left knee replacement (TKR) Social History household members: none housing: house Smoking Status: Never smoker alcohol intake: never substance use type: does not use caffeine: Yes what type of physical activity do you participate in: none seatbelt use: always ROS ROS Narrative Constitutional: Reports acute chronic fatigue and weakness. Gain of weight. Nofever. HEENT: Reports systems reviewed and no addt'l complaints, except as documented Respiratory/Chest: As described in HPI. Never been a smoker CVS: Denies chest pain pressure or tightness. Leg swelling Gastrointestinal: Denies coffee ground emesis, hematemesis or vomiting Genitourinary: Denies burning urination or new urinary tract symptoms Musculoskeletal: Denies acute joint pain or limited range of motion. No acute injury Neurologic: Denies seizure-like symptoms. skin: No ulcer. No rash Endocrinology: Reports systems reviewed and no addt'l complaints, except as documented Hematologic/Lymphatic: Reports systems reviewed and no addt'l complaints, exceptas documented Rest 14 ROS are negative except as mentioned in HPI Vital Signs Vital Signs Vital Signs: 12/29/24 13:13 12/29/24 13:18 12/29/24 15:12 Temperature 98.7 F 98.6 F Temperature Source Oral Temporal Pulse Rate 60 67 Respiratory Rate 20 H 18 Respiratory Effort Short of Breath Respiratory Depth Shallow Respiratory Pattern Tachypnea Blood Pressure 170/78 H 171/78 H Blood Pressure Mean 108 109 Pulse Ox 100 95 Oxygen Delivery Method Room Air Room Air Room Air 12/29/24 16:17 Temperature 97.7 F L Temperature Source Pulse Rate 60 Respiratory Rate 20 H Respiratory Effort Respiratory Depth Respiratory Pattern Blood Pressure 173/66 H Blood Pressure Mean 101 Pulse Ox 93 Oxygen Delivery Method Weight Weight: 253 lb 12.033 oz Body Mass Index (BMI) 42.2 Physical Exam Narrative General: Alert, Oriented x3, Cooperative. BMI 42.2 kg/m? HEENT: Atraumatic, PERRLA, EOMI, Normocephalic. Oral: Deep oropharyngeal structures could not be visualized Neck: Supple, No JVD, Negative Carotid Bruits Chest wall/Lungs: Air entry diminished in bilateral lung bases. No crepitations/wheezing. Dyspnea at rest. Cardiovascular: Regular rate and rhythm, Normal S1,S2, left subclavicular pacemaker. No murmur/gallop. Abdomen: Bowel Sounds Present, Soft, Non Tender, Non-Distended : No dysuria. No renal angle tenderness. No suprapubic tenderness. Extremities: Bilateral below-knee pedal edema, pitting, Capillary Refill Less than 3 Seconds Skin: No rashes, No breakdown Musculoskeletal: No Tenderness to Palpation of Joints or Extremities Neurological: Cranial nerves II-XII grossly intact, DTR 2+/4. No acute focal neurological deficit. Psych/Mental Status: Flat affect Results Lab / Micro Data 12/29/24 13:18 12/29/24 13:18 Labs: Laboratory Results - last 24 hr 12/29/24 13:18: WBC 9.4, RBC 3.37 L, Hgb 10.3 L, Hct 31.5 L, MCV 93.5, MCH 30.6,MCHC 32.7, RDW Std Deviation 53.2 H, RDW Coeff of Chandu 15.6 H, Plt Count , MPV 12.0, Immature Gran % (Auto) 0.900, Neut % (Auto) 75.3 H, Lymph % (Auto) 12.6 L,Kenedy % (Auto) 9.2, Eos % (Auto) 1.4, Baso % (Auto) 0.6, Absolute Neuts (auto) 7.0, Absolute Lymphs (auto) 1.18, Nucleated RBC % 0, Platelet Estimate ADEQUATE,Sodium 140, Potassium 3.8, Chloride 103, Carbon Dioxide 22.4, Anion Gap 15, BUN 20 H, Creatinine 0.96, Estim Creat Clear Calc 56.24, Est GFR (MDRD) Non-Af 59 L,BUN/Creatinine Ratio 21.3 H, Glucose 109 H, Calcium 9.3, Troponin T High Sens 23H, NT pro BNP II 1033 12/29/24 15:31: Troponin T Hi Sens 2 Hr 23 H Imaging Radiology Impression Chest X-Ray 12/29/24 13:40 IMPRESSION: Borderline cardiomegaly. Vascular congestion and CHF. Blunting of both costophrenic angles worse on the right side. Reading Location: [id number] Assessment & Plan Assessment/Plan (1) Acute exacerbation of CHF (congestive heart failure): QUALIFIERS: Heart failure type: diastolic Qualified Code(s): I50.33 - Acute on chronic diastolic (congestive) heart failure PLAN: Plan This is a 84-year-old female being admitted for acute on chronic worsening of shortness of breath, dyspnea at rest and hypoxia on ambulation 1. Acute on chronic HFpEF, moderate pulmonary hypertension: Patient is being admitted in PCU. Chest x-ray daily reviewed and shows bilateral vascular congestion, right mild pleural effusion. Borderline cardiomegaly. Twelve-lead EKG atrial paced rhythm 60 bpm. QTc 436 ms. Started on furosemide 40 mg IV twice daily. Heart failure core measures including intake and output, fluid restriction less than 1500 mL, daily weight monitoring, kidney and electrolytes monitoring. 2D echo recently shows EF 60%, moderate pulmonary hypertension, normal RV size and systolic function. No RWMA. Troponin flat and independent and similar; 23 at 0 and 2 hours. Third troponin ordered 2. Moderate pulmonary hypertension, paroxysmal A-fib not on anticoagulation, chronic sick sinus syndrome status post permanent placement: Dr. Sarmiento advised right heart cath which I told the patient that it will be done as an outpatient procedure. She was recently seen by Anabel Horne in office. CHADS2 scoreis elevated but not candidate for anticoagulant due to GI bleed history. On low-dose baby aspirin. Continue amiodarone 200 mg daily 3. Hypertensive urgency: BP was high in ED, systolic more than 170. On hydralazine 75 mg 3 times daily, losartan 100 mg daily and diltiazem ER 240 mg daily. IV hydralazine ordered as needed for SBP more than 180 mmHg. Patient also on IV Lasix as mentioned above 4. Left leg numbness: Patient was last admitted in first week of December 2024 for leg tremors and hypertensive urgency. Acute stroke was ruled out she had carotid Doppler in July 2024 which shows less than 50% stenosis bilaterally. PT and OT ordered. Symptoms probably due to bilateral leg edema 5. Chronic degenerative arthritis, bilateral TKR and decreased functional capacity: PT and OT ordered. During previous admission she was discharged to inpatient rehab 6. DVT prophylaxis, high risk but also high risk of bleeding/GI bleed: Heparin 5000 units subcutaneous twice daily. Discontinue if platelet count drops less than 50,000 or hemoglobin less than 8 g%. Bilateral Patria wrap bandage Living will/advanced directive/end of life care: Patient does have living will or advanced directive. Her daughter is power of contract attorney for health after discussion of benefits/risks procedures involved with full code, DNR CC arrest and DNR CC, the patient is very clear that when her time comes she wants to go and does not want to be kept alive on artificial mechanism/ventilator Patient doesn't want artificial life support including intubation, tube feed, ventilator and/chest compression, central venous catheter, vasopressor and DC shock if needed Total time spent in [id number] encounter in discussion of advanced directive 17 minutes. Laboratory Results 12/29/24 13:18: WBC 9.4, RBC 3.37 L, Hgb 10.3 L, Hct 31.5 L, MCV 93.5, MCH 30.6,MCHC 32.7, RDW Std Deviation 53.2 H, RDW Coeff of Chandu 15.6 H, Plt Count , MPV 12.0, Immature Gran % (Auto) 0.900, Neut % (Auto) 75.3 H, Lymph % (Auto) 12.6 L,Kenedy % (Auto) 9.2, Eos % (Auto) 1.4, Baso % (Auto) 0.6, Absolute Neuts (auto) 7.0, Absolute Lymphs (auto) 1.18, Nucleated RBC % 0, Platelet Estimate ADEQUATE, Sodium 140, Potassium 3.8, Chloride 103, Carbon Dioxide 22.4, Anion Gap 15, BUN 20 H, Creatinine 0.96, Estim Creat Clear Calc 56.24, Est GFR (MDRD) Non-Af 59 L,BUN/Creatinine Ratio 21.3 H, Glucose 109 H, Calcium 9.3, Troponin T High Sens 23H, NT pro BNP II 1033 12/29/24 15:31: Troponin T Hi Sens 2 Hr 23 H Echo 11/30/2019 Interpretation Summary Normal LV size. Left ventricular systolic function is normal. Moderate concentric left ventricular hypertrophy. The left ventricular ejection fraction is 60 %. Pulmonary artery systolic pressure is 65 mmHg. Moderate pulmonary hypertension. Charges/Coding Visit Charges Inpatient E&M: 59490 Init Hosp L3 Procedures Hospitalists Procedures: 58317 Advncd Care Plan 30 Min 12/29/24 1251 <Electronically signed by Len Nicolas MD> Cosigner Signature (if applicable): CC: VSC APPLIQUE CUTTER-C Karen Johnson; Dr. Len Nicolas MD~ Signed [facility] Work Phone: 1([phone]) 852-793508-29-2025 Discharge summary Author Cheryl Garcia [facility] Note Date/Time December 29, 2024 4: 32pm [facility] Medical Records Department [address] [place] [address] Emergency Department Summary 12/29/24 MR#: [id number] Acct: [id number] Name: MICHAEL MEIER Rep #:[id number] : 1940 84 From: Cheryl Garcia MD PCP: JACOBO Hernandez, APPLIQUE CUTTERLarissa Statu s:REG ER Location: ED HPI <NIDA Cullen - Last Filed: 12/29/24 16:27> History of Present Illness Chief Complaint: Lower Extremity Injury Narrative Narrative: 84-year-old female with PMH of hypertension, hyperlipidemia, pacemaker, GERD, GIbleed, pulmonary hypertension presents due to shortness of breath. She is a poor informant. States she has felt short of breath for a while and her reimbursement representative told her to see her receivable manager. She was at Dr. Alcala's officethis morning and her right leg was twitching and jumping off the bed. She states they were concern for strokelike activity. But then she tells me that her receivable manager said she needs a heart cath and that is why she was sent to the ED. She denies fever, chills, chest pain, palpitations, or upper respiratory symptoms. No vomiting or diarrhea. She is on low-dose aspirin and is not on anticoagulation due to history of GI bleeds. 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 Right carotid bruit Pulmonary hypertension GI bleed (2018) Essential (primary) hypertension Osteoarthritis [...] 50 mcg PO QDAY Thyroid 12/03/24 History fluticasone propionate 110 1 inh inhalation Q12H SOB/W heezing 04/30/24 12/03/24 History mcg/actuation HFA aerosol inhaler vitamin B complex (Balanced B-50 1 tab PO DAILY supple ment 04/30/24 Unknown History tablet) diltiazem HCl 240 mg 240 mg PO QHS heart #90 caps 05/15/24 12/02/24 Rx capsule,extended release 24 hr amiodarone 200 mg tablet 200 mg PO DAILY heart #90 ta bs 07/20/24 Unknown Rx losartan 100 mg tablet 100 mg PO DAILY blood pressu re #90 09/11/24 12/03/24 Rx tabs azelastine 0.05 % eye drops 1 drp ophthalmic (eye) BID PRN eye 11/02/24 Unknown History drops omeprazole 20 mg capsule,delayed 20 mg PO QDAY GERD Unknown History release acetaminophen 500 mg tablet 1,000 mg (2 x 500 mg) PO Q 6H PRN 12/13/24 Unknown Rx PRN Pain 1-10 Or Fever #90 tabs gabapentin 100 mg capsule 100 mg PO QHS #30 caps 12/13 Unknown Rx hydralazine 25 mg tablet 25 mg PO TID #90 tabs Unknown Rx hydralazine 50 mg tablet 75 mg (1.5 x 50 mg) PO TID # 90 tabs 12/13/24 Unknown Rx lidocaine 5 % topical patch 1 patch topical DAILY #30 ea 12/13/24 Unknown Rx meloxicam 15 mg tablet 15 mg PO DAILY Joint pain #1 TAB 12/13/24 Unknown Rx sertraline 25 mg tablet See Rx Instructions .Route 0 12/13/24 Unknown Rx .COMPLEX #42 tabs sodium chloride 1,000 mg soluble 1,000 mg PO QDAY #60 tabs 12/27/24 Unknown Rx tablet spironolactone 25 mg tablet 25 mg PO DAILY fluid reten tion #30 12/27/24 Unknown Rx tabs Allergy/AdvReac Type Severity Reaction Status Date / Time ciprofloxacin (From Cipro) Allergy Rash Verified 12/29/24 13:12 Penicillins (PCN) Allergy Hives Verified 12/29/24 13:12 Sulfa (Sulfonamide Allergy Hives Verified 12/29/24 13:12 Antibiotics) Beta-Blockers AdvReac Other Verified 12/29/24 13:12 (Beta-Adrenergic Bloc hydrocodone (From Vicodin) AdvReac Other Verified 12/29/24 13:12 lisinopril AdvReac cough Verified 12/29/24 13:12 meperidine (From Demerol) AdvReac Vomiting Verified 12/29/24 13:12 morphine AdvReac Other Verified 12/29/24 13:12 pravastatin AdvReac Other Verified 12/29/24 13:12 Family History Grandfather Myocardial infarction Sudden cardiac [...] total left knee replacement (TKR) Social History household members: none housing: house Smoking Status: Never smoker alcohol intake: never substance use type: does not use caffeine: Yes what type of physical activity do you participate in: none seatbelt use: always ROS <NIDA Cullen - Last Filed: 12/29/24 16:27> ROS ED ROS Narrative Constitutional: Negative for fever, chills, malaise. CVS: Negative for palpitations, chest pain, syncope. Respiratory: Positive for shortness of breath. GI: Negative for abdominal pain, nausea, vomiting. EXAM <NIDA Cullen - Last Filed: 12/29/24 16:27> Physical Exam Narrative Exam Narrative: CONST: Patient sitting in no acute distress. EYES: Normal inspection. NECK: Normal inspection. RESP: No respiratory distress, CTAB. CVS: Regular rate and rhythm, no murmur, no gallop. ABD: Soft and nontender, no guarding or rebound, nondistended. SKIN: Color normal, no rash, warm, dry, intact. EXTREMITIES: Normal appearance, trace bilateral ankle edema. NEURO: Alert and answering questions appropriately. PSYCH: Normal affect. Const Vital Signs: 12/29/24 13:13 12/29/24 13:18 12/29/24 15:12 Temperature 98.7 F 98.6 F Temperature Source Oral Temporal Pulse Rate 60 67 Respiratory Rate 20 H 18 Respiratory Effort Short of Breath Respiratory Depth Shallow Respiratory Pattern Tachypnea Blood Pressure 170/78 H 171/78 H Blood Pressure Mean 108 109 Pulse Ox 100 95 Oxygen Delivery Method Room Air Room Air Room Air 12/29/24 16:17 Temperature 97.7 F L Temperature Source Pulse Rate 60 Respiratory Rate 20 H Respiratory Effort Respiratory Depth Respiratory Pattern Blood Pressure 173/66 H Blood Pressure Mean 101 Pulse Ox 93 Oxygen Delivery Method <Dr. Cheryl Garcia MD - Last Filed: 12/29/24 16:32> Physical Exam Const Vital Signs: 12/29/24 13:13 12/29/24 13:18 12/29/24 15:12 Temperature 98.7 F 98.6 F Temperature Source Oral Temporal Pulse Rate 60 67 Respiratory Rate 20 H 18 Respiratory Effort Short of Breath Respiratory Depth Shallow Respiratory Pattern Tachypnea Blood Pressure 170/78 H 171/78 H Blood Pressure Mean 108 109 Pulse Ox 100 95 Oxygen Delivery Method Room Air Room Air Room Air 12/29/24 16:17 Temperature 97.7 F L Temperature Source Pulse Rate 60 Respiratory Rate 20 H Respiratory Effort Respiratory Depth Respiratory Pattern Blood Pressure 173/66 H Blood Pressure Mean 101 Pulse Ox 93 Oxygen Delivery Method [facility] <NIDA Cullen - Last Filed: 12/29/24 16:27> [facility] Narrative Medical decision making narrative: Consults: Cardiology, hospitalist Differential includes but not limited to CHF, A-fib, ACS 84-year-old female presents for ongoing shortness of breath. History of A-fib on low-dose aspirin, not anticoagulated due to history of GI bleeds. Recent echo on 11/29/2024 showed EF of 60% with moderate pulmonary hypertension. She isawake alert no distress. Vital stable. She is on 100% on room air with clear lung sounds. There is trace bilateral ankle edema. EKG shows atrial paced rhythm with no acute ST changes and serial troponins are 23 and 23 ruling out ACS. White count is normal, hemoglobin of 10.3 is stable, normal electrolytes and renal function. BNP is 1033. Chest x- ray shows mild vascular congestion and CHF. I reviewed her last cardiology visit note on 12/27/2024. They thought her shortness of breath was multifactorial. They recommended decreasing her sodium and restarting spironolactone 25 mg once daily. Patient has not picked up this medication yet. I ordered IV Lasix 40 mg and consulted cardiology. said with negative cardiac enzymes the patient can follow-up outpatient todiscuss elective heart catheterization. However, after this discussion her ambulatory pulse ox was noted to be 87% and I feel she needs admitted for CHF exacerbation. I discussed the case with the hospitalist. History & Record Review Discussion w/independent historian: Patient and Friend Additional record(s) reviewed:: Prior outpatient record and Prior labs Lab Data Attestation: I reviewed the patient's lab results. Labs: Laboratory Results - last 24 hr 12/29/24 12/29/24 13:18 15:31 WBC 9.4 RBC 3.37 L Hgb 10.3 L Hct 31.5 L MCV 93.5 MCH 30.6 MCHC 32.7 RDW Std Deviation 53.2 H RDW Coeff of Chandu 15.6 H Plt Count MPV 12.0 Immature Gran % (Auto) 0.900 Neut % (Auto) 75.3 H Lymph % (Auto) 12.6 L Kenedy % (Auto) 9.2 Eos % (Auto) 1.4 Baso % (Auto) 0.6 Absolute Neuts (auto) 7.0 Absolute Lymphs (auto) 1.18 Nucleated RBC % 0 Platelet Estimate ADEQUATE Sodium 140 Potassium 3.8 Chloride 103 Carbon Dioxide 22.4 Anion Gap 15 BUN 20 H Creatinine 0.96 Estim Creat Clear Calc 56.24 Est GFR (MDRD) Non-Af 59 L BUN/Creatinine Ratio 21.3 H Glucose 109 H Calcium 9.3 Troponin T High Sens 23 H Troponin T Hi Sens 2 Hr 23 H NT pro BNP II 1033 Radiography Diagnostic Testing: Clinical Impression(s) from Imaging Studies Chest X-Ray 12/29/24 13:40 IMPRESSION: Borderline cardiomegaly. Vascular congestion and CHF. Blunting of both costophrenic angles worse on the right side. Reading Location: [facility] ED attending interpretation of two-view chest x-ray shows normal heart size, no pulmonary vascular congestion, small bilateral pleural effusions. EKG Initial EKG: Attestation: I personally reviewed and interpreted this EKG as follows: Comments: Atrial paced rhythm at [address] changes, no STEMI <Dr. Cheryl Garcia MD - Last Filed: 12/29/24 16:32> [facility] MDM Narrative Medical decision making narrative: Consults: Cardiology, hospitalist Differential includes but not limited to CHF, A-fib, ACS 84-year-old female presents for ongoing shortness of breath. History of A-fib on low-dose aspirin, not anticoagulated due to history of GI bleeds. Recent echo on 11/29/2024 showed EF of 60% with moderate pulmonary hypertension. She isawake alert no distress. Vital stable. She is on 100% on room air with clear lung sounds. There is trace bilateral ankle edema. EKG shows atrial paced rhythm with no acute ST changes and serial troponins are 23 and 23 ruling out ACS. White count is normal, hemoglobin of 10.3 is stable, normal electrolytes and renal function. BNP is 1033. Chest x- ray shows mild vascular congestion and CHF. I reviewed her last cardiology visit note on 12/27/2024. They thought her shortness of breath was multifactorial. They recommended decreasing her sodium and restarting spironolactone 25 mg once daily. Patient has not picked up this medication yet. I ordered IV Lasix 40 mg and consulted cardiology. said with negative cardiac enzymes the patient can follow-up outpatient todiscuss elective heart catheterization. However, after this discussion her ambulatory pulse ox was noted to be 87% and I feel she needs admitted for CHF exacerbation. I discussed the case with the hospitalist. Patient seen and evaluated with HARJIT. I personally interviewed and examined the patient. I was involved in all aspects of patient's orders, interpretation of results, and treatment. In brief patient is a 84-year-old female presenting for shortness of breath thathas been worsening over the past few weeks. EKG with atrial paced rhythm, no ischemic changes. Troponin and reflex stable at 23, no significant delta. Chest x-ray with evidence of vascular congestion and CHF. Patient given a dose of IV Lasix. 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 Patient states that she was told by her receivable manager that she needed a heart cath today. There is no documentation of this. With negative troponins and EKG, ruled out ACS. However patient was ambulated to discharge and dropped down to 87% on room air. Patient will require admission for CHF exacerbation. Clinical impression CHF exacerbation Lab Data Labs: Laboratory Results - last 24 hr 12/29/24 12/29/24 13:18 15:31 WBC 9.4 RBC 3.37 L Hgb 10.3 L Hct 31.5 L MCV 93.5 MCH 30.6 MCHC 32.7 RDW Std Deviation 53.2 H RDW Coeff of Chandu 15.6 H Plt Count MPV 12.0 Immature Gran % (Auto) 0.900 Neut % (Auto) 75.3 H Lymph % (Auto) 12.6 L Kenedy % (Auto) 9.2 Eos % (Auto) 1.4 Baso % (Auto) 0.6 Absolute Neuts (auto) 7.0 Absolute Lymphs (auto) 1.18 Nucleated RBC % 0 Platelet Estimate ADEQUATE Sodium 140 Potassium 3.8 Chloride 103 Carbon Dioxide 22.4 Anion Gap 15 BUN 20 H Creatinine 0.96 Estim Creat Clear Calc 56.24 Est GFR (MDRD) Non-Af 59 L BUN/Creatinine Ratio 21.3 H Glucose 109 H Calcium 9.3 Troponin T High Sens 23 H Troponin T Hi Sens 2 Hr 23 H NT pro BNP II 1033 Radiography Diagnostic Testing: Clinical Impression(s) from Imaging Studies Chest X-Ray 12/29/24 13:40 IMPRESSION: Borderline cardiomegaly. Vascular congestion and CHF. Blunting of both costophrenic angles worse on the right side. Reading Location: [id number] Discharge Plan Triage Chief Complaint: Lower Extremity Injury ED Midlevel Provider: Marilia Mendosa ED Provider: Cheryl Garcia Dx/Rx/DC Orders Clinical Impression: Increasing shortness of breath, Acute exacerbation of CHF (congestive heart failure), Hypoxia, Chronic anemia Prescriptions: No Action aspirin [Adult Low Dose [...] mg capsule,delayed release(DR/EC) 20 mg PO QDAY sodium chloride 1,000 mg tablet,soluble 1,000 mg PO QDAY Qty: 60 0RF spironolactone 25 mg tablet 25 mg PO DAILY Qty: 30 11RF cyclosporine [Restasis] 0.05 % dropperette 1 drp [...] ophthalmic (eye) BID PRN (Reason: eye drops) acetaminophen 500 mg Tablet 1,000 mg PO [...] patch 12 H after it is applied. sertraline 25 mg tablet See Rx Instructions [...] total of 75 mg 3 times aday. meloxicam 15 mg tablet 15 mg PO DAILY Qty: 1 0RF Rx Instructions: Take this with food. diltiazem HCl 240 mg capsule,extended release 24hr 240 mg PO QHS Qty: 90 3RF amiodarone 200 mg tablet 200 mg PO DAILY Qty: 90 3RF losartan 100 mg tablet 100 mg PO DAILY Qty: 90 3RF Primary Care Provider: Karen Johnson Referrals: Karen Johnson, APPLIQUE CUTTER-C [Primary Care Provider] - Print Language: Dutch What to do if you have Problems For any increased pain, shortness of breath, bleeding, nausea or vomiting, chestpain, or any unexpected problems, contact your Primary Care Provider. Call [facility] ([phone]) or report to the closest Emergency Room. Call 911 if necessary. 12/29/24 1632 <Electronically signed by Cheryl Garcia MD> Cosigner Signature (if applicable): 12/29/24 1627 <Electronically signed by Marilia ALVA> CC: JACOBO APPLIQUE CUTTER-Marilee Johnson ~ Signed [facility] Work Phone: [phone]) 490-139008-29-2025 Radiology Diagnostic study [facility]08-23-2025 Radiology Diagnostic study [facility]08-23-2025 Discharge summary Author Arley Manuel [facility] Note Date/Time December 23, 2024 9: 52pm [facility] Medical Records Department [address] [place] [address] Emergency Department Summary 12/23/24 MR#: [id number] Acct: [id number] Name: MICHAEL MEIER Rep #:[id number] : 1940 84 From: Arley Manuel MD PCP: JACOBO Hernandez, APPLIQUE CUTTER-Marilee Statu s:REG ER Location: ED HPI History of Present Illness Chief Complaint: Shortness of Breath Narrative Narrative: 84-year-old female past medical history of CHF, on Lasix, presents with increasing shortness of breath, weight gain of 9 pounds over 2 days, and decreased urination. She relates history that she was [facility] to the rehabilitation hospital, and recently released. Given her weight gain and shortness of breath, she thought she was having CHF exacerbation so she took 20 of Lasix yesterday, then 40 mg today. She has had decreased urination today. She also has shortness of breath on exertion over the last few days as well. She denies any fevers or chills, no cough, no history of COPD. No noted increased leg swelling. She states that she had been taken off Lasix previously because her sodium was too low. She supposed to see her reimbursement representative Dr. Asim Lai on Wednesday of this week, approximately 4 days from now. She presents because of the dyspnea on exertion, and decreased urination. 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 Right carotid bruit Pulmonary hypertension GI bleed (2018) Essential (primary) hypertension Osteoarthritis [...] 50 mcg PO QDAY Thyroid 12/03/24 History fluticasone propionate 110 1 inh inhalation Q12H SOB/W heezing 04/30/24 12/03/24 History mcg/actuation HFA aerosol inhaler vitamin B complex (Balanced B-50 1 tab PO DAILY supple ment 04/30/24 Unknown H istory tablet) diltiazem HCl 240 mg 240 mg PO QHS heart #90 caps 05/15/24 12/02/24 Rx capsule,extended release 24 hr amiodarone 200 mg tablet 200 mg PO DAILY heart #90 ta bs 07/20/24 Unknown Rx losartan 100 mg tablet 100 mg PO DAILY blood pressu re #90 09/11/24 12/03/24 Rx tabs azelastine 0.05 % eye drops 1 drp ophthalmic (eye) BID PRN eye 11/02/24 Unknown History drops omeprazole 20 mg capsule,delayed 20 mg PO QDAY GERD Unknown History release acetaminophen 500 mg tablet 1,000 mg (2 x 500 mg) PO Q 6H PRN 12/13/24 Unknown Rx PRN Pain 1-10 Or Fever #90 tabs gabapentin 100 mg capsule 100 mg PO QHS #30 caps 12/13 Unknown Rx hydralazine 25 mg tablet 25 mg PO TID #90 tabs Unknown Rx hydralazine 50 mg tablet 75 mg (1.5 x 50 mg) PO TID # 90 tabs 12/13/24 Unknown Rx lidocaine 5 % topical patch 1 patch topical DAILY #30 ea 12/13/24 Unknown Rx meloxicam 15 mg tablet 15 mg PO DAILY Joint pain #1 TAB 12/13/24 Unknown Rx sertraline 25 mg tablet See Rx Instructions .Route 0 12/13/24 Unknown Rx .COMPLEX #42 tabs sodium chloride 1,000 mg soluble 1,000 mg PO BID #60 t abs 12/13/24 Unknown Rx tablet Allergy/AdvReac Type Severity Reaction Status Date / Time ciprofloxacin (From Cipro) Allergy Rash Verified 12/23/24 19:06 Penicillins (PCN) Allergy Hives Verified 12/23/24 19:06 Sulfa (Sulfonamide Allergy Hives Verified 12/23/24 19:06 Antibiotics) Beta-Blockers AdvReac Other Verified 12/23/24 19:06 (Beta-Adrenergic Bloc hydrocodone (From Vicodin) AdvReac Other Verified 12/23/24 19:06 lisinopril AdvReac cough Verified 12/23/24 19:06 meperidine (From Demerol) AdvReac Vomiting Verified 12/23/24 19:06 morphine AdvReac Other Verified 12/23/24 19:06 pravastatin AdvReac Other Verified 12/23/24 19:06 Family History Grandfather Myocardial infarction Sudden cardiac [...] total left knee replacement (TKR) Social History household members: none housing: house Smoking Status: Never smoker alcohol intake: never substance use type: does not use caffeine: Yes what type of physical activity do you participate in: none seatbelt use: always ROS ROS ED ROS Narrative Review of systems positive for dyspnea on exertion. No fevers or chills, no cough. Positive weight gain of 9 pounds over 2 days. Decreased urination. Denies other exacerbating or alleviating factors. EXAM Physical Exam Narrative Exam Narrative: Afebrile. Vital signs noted. Nontoxic-appearing. Cardiovascular examination reveals a regular rate and rhythm with borderline bradycardia. Lungs are clear to auscultation bilaterally. Mild tachypnea. Abdomen soft nontender with normoactive bowel sounds. Bilateral lower extremities lightly wrapped in gauze/stockinettes. Neurological examination nonfocal, nonlateralizing. Const Vital Signs: 12/23/24 19:04 12/23/24 20:28 12/23/24 21:04 Temperature 98.2 F Temperature Source Oral Pulse Rate 60 60 Respiratory Rate 20 H 17 Respiratory Effort Respiratory Depth Respiratory Pattern Blood Pressure 175/52 H 159/56 H Blood Pressure Mean 93 90 Pulse Ox 98 94 Oxygen Delivery Method Room Air Room Air Room Air 12/23/24 21:28 Temperature Temperature Source Pulse Rate Respiratory Rate Respiratory Effort Normal Non-Labored Respiratory Depth Normal Respiratory Pattern Normal Blood Pressure Blood Pressure Mean Pulse Ox Oxygen Delivery Method Room Air MDM MDM MDM Narrative Medical decision making narrative: Differential diagnosis includes but not limited to dehydration versus decreased urine output secondary to intravascular volume depletion versus CHF exacerbationversus pneumonia versus pneumothorax. Patient is currently afebrile here. Comprehensive workup was pursued. I am hesitant to give her a large amount of IV fluid with her history of CHF and pacemaker. She may have dehydration or other electrolyte abnormalities such as hyponatremia again. EKG was obtained and interpreted by myself independently as atrial paced rhythm at [address] changes. No STEMI. I reviewed her laboratory work and she has slight leukocytosis of 12.8 which I think is nonspecific, hemoglobinstable at 9.7 when compared to prior labs, hematocrit 29.9, platelet count 249. Electrolyte panel shows normal sodium of 141 with potassium 3.6, BUN of 25 and creatinine 1.17, no acute kidney injury. Glucose 119 with normal anion gap of 15. While BNP is slightly elevated at 1330, on my individual interpretation of her chest x-ray, she has no pleural effusion or fluid overload, no consolidation. I reviewed the radiology report which also shows no acute process. I think her decreased urine output may be secondary to her limited fluid intake. I did put in an order to have her ambulate on a pulse ox, however she states sheis fine and she is motivated for discharge. She states when she ambulates her pulse ox remains at 94 to 95% on room air but she subjectively has dyspnea on exertion. At this point in time, I do not feel that she is meeting any observation or admission criteria. I feel she can be discharged to follow-up with her reimbursement representative as scheduled, and her primary care provider as needed. Return instructions to the emergency department were reviewed. Disposition is discharged home in stable condition. History & Record Review Discussion w/independent historian: Patient Lab Data Attestation: I reviewed the patient's lab results. Labs: Laboratory Results - last 24 hr 12/23/24 20:20 WBC 12.8 H RBC 3.22 L Hgb 9.7 L Hct 29.9 L MCV 92.9 MCH 30.1 MCHC 32.4 RDW Std Deviation 51.6 H RDW Coeff of Chandu 15.2 H Plt Count 249 MPV 10.5 Immature Gran % (Auto) 0.500 Neut % (Auto) 75.5 H Lymph % (Auto) 10.8 L Kenedy % (Auto) 10.7 H Eos % (Auto) 2.0 Baso % (Auto) 0.5 Absolute Neuts (auto) 9.6 H Absolute Lymphs (auto) 1.38 Nucleated RBC % 0 Sodium 141 Potassium 3.6 Chloride 104 Carbon Dioxide 22.6 Anion Gap 15 BUN 25 H Creatinine 1.17 Est GFR (MDRD) Non-Af 46 L BUN/Creatinine Ratio 21.0 H Glucose 119 H Calcium 9.0 NT pro BNP II 1330 Radiography Chest X-Ray - ED: 1 View, Read by ED Physician, Read by Radiologist, No Acute Disease and No Infiltrates Diagnostic Testing: Clinical Impression(s) from Imaging Studies Chest X-Ray 12/23/24 19:57 IMPRESSION: No acute process. Other findings as above. Reading [facility] Discharge Plan Triage Chief Complaint: Shortness of Breath ED Provider: Arley Manuel Dx/Rx/DC Orders Clinical Impression: Dyspnea on exertion, History of chronic CHF, Decreased urine output Instructions: ED Heart Failure, Congestive (CHF), ED Dyspnea Prescriptions: No Action aspirin [Adult Low Dose [...] ophthalmic (eye) BID PRN (Reason: eye drops) acetaminophen 500 mg Tablet 1,000 mg PO [...] total of 75 mg 3 times aday. meloxicam 15 mg tablet 15 mg PO DAILY Qty: 1 0RF Rx Instructions: Take this with food. diltiazem HCl 240 mg capsule,extended release 24hr 240 mg PO QHS Qty: 90 3RF amiodarone 200 mg tablet 200 mg PO DAILY Qty: 90 3RF losartan 100 mg tablet 100 mg PO DAILY Qty: 90 3RF Primary Care Provider: Karen Johnson [facility] Referrals: Gallo Hickey MD [Med Staff - Active Staff] - Keep Brandon appointment Michael Puga DO [Non-Staff] - Activity Restrictions/Additional Instructions: Continue your previous medications and routines. Return with increased difficulty breathing, new or worsening symptoms. Print Language: Dutch Disposition Disposition: Home, Self Care What to do if you have Problems For any increased pain, shortness of breath, bleeding, nausea or vomiting, chestpain, or any unexpected problems, contact your Primary Care Provider. Call [facility] ([phone]) or report to the closest Emergency Room. Call 911 if necessary. [id number]/23/[id number] <Electronically signed by Arley Manuel MD> Cosigner Signature (if applicable): CC: [facility] APPLIQUE CUTTER-C Karen Johnson ~ Signed [facility] Work Phone: 1(519) 860-760008-20-2025 History of Present illness Narrative* Sharon Jarrett APRN.COUNTER WAITER - 12/20/2024 2:30 PM EDT HISTORY AND PHYSICAL Michael Meier : 1940 REFERRING PHYSICIAN: No referring provider defined for this encounter. CHIEF COMPLAINT: Patient presents with: Consult: Blood in stool HPI: Michael is a 84 year old female referred for endoscopy. Michael notes anemia, + iFOBT . 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 During her stay she was noted to beanemic at 10.6 (hgb). Upon admission to the [...] is due to follow up with Dr. Alclaa. Also has obstructive lung dx. Michael follows [...] was 03/[address] De León in [place]. Sedation: MAC Impression: - 3 cm hiatal hernia. - Z-line regular, 37 cm from the incisors. Biopsied. - Gastritis, characterized by congestion (edema), erosions, erythema and linear erosions. Biopsied. - Normal examined duodenum. Biopsied. Last colonoscopy was was 06/[address] Mcclure at [facility]. Sedation: Impression: - The entire examined colon [...] CONDYLE&PLATU MEDIAL&LAT COMPARTMENTS 11/15/2009 Knee replacement, total -[facility] ARTHRP KNE CONDYLE&PLATU MEDIAL&LAT COMPARTMENTS 12/30/2009 Right knee replaced COLONOSCOPY FLX DX W/COLLJ SPEC WHEN PFRMD 06/29/2017 Colonoscopy EGD 10/17/2020 EGD W/O [facility] SPEC VARICIES INJ 01/08/2022 EGD W/O [facility] SPEC VARICIES INJ 03/31/2024 Lito ESOPHAGOGASTRODUODENOSCOPY TRANSORAL [...] feelingsof cold. Eyes: The patient denies glaucoma, denies [...] denies vomiting, denies black or tarry stools, denieshemorrhoids, denies bleeding from rectum, + diverticulitis, denies [...] including failure to complete the endoscopy and p erforation. Michael had the opportunity to ask questions [...] rarely Drug use: No documented in [facility]25 NoteHNO ID: [id number] Author: SHARON JARRETT APRN.CNP Service: ? Author [...] was 03/[address] De León in [place]. Sedation: MAC Impression: - 3 cm hiatal hernia. - Z-line regular, 37 cm from the incisors. Biopsied. - Gastritis, characterized by congestion (edema), erosions, erythema and linear erosions. Biopsied. - Normal examined duodenum. Biopsied. Last colonoscopy was was 06/[address] Mcclure at [facility]. Sedation: Impression: - The entire examined colon [...] ARTHRP ACETBLR/PROX FEM PROSTC (more content not included)...[facility]08-18-2025 Telephone encounter Note* Telephone Encounter - July Marcano RN - 12/18/2024 5:47 PM EDT Called and left a detailed voicemail notifying Yvonne-[facility] PT of providers message. Clinic phone number was left in case she had any questions. July Marcano RN [facility]08-18-2025 Miscellaneous Notes* Telephone Encounter - July Marcano RN - 12/18/2024 5:47 PM EDT Called and left a detailed voicemail notifying Yvonne-[facility] PT of providers message. Clinic phone number was left in case she had any questions. July Marcano RN * Telephone Encounter - Michael Puga DO - 12/18/2024 4:57 PM EDT Noted, agree with below Michael Puga DO * Telephone Encounter - Constance Ervin LPN - 12/18/2024 3:45 PM EDT RYANI: Yvonne with [facility] PT calls with pt's POC. PT will see pt twice a week x 4 weeks for strengthening, gait and transfer training, and fall prevention. Constance Ervin LPN documented in this encounterPrem[facility]08-18-2025 Telephone encounter Note * Telephone Encounter - Michael Puga DO - 12/18/2024 4:57 PM EDT Noted, agree with below Michael Puga DO [facility]08-18-2025 Telephone encounter Note* Telephone Encounter - Constance Ervin LPN - 12/18/2024 3:45 PM EDT NORM Russell with [facility] PT calls with pt's POC. PT will see pt twice a week x 4 weeks for strengthening, gait and transfer training, and fall prevention. Constance Ervin LPN [facility]08-15-2025 Telephone encounter Note* Telephone Encounter - Ana Romo MA - 12/15/2024 1:00 PM EDT Call to Bhavna, notified her of message below from Provider, she verbalized understanding. Notespt takes BP once daily, but will increase to bid. Bhavna did talk to pt about 1 hour ago and asked for a recheck of BP. Pt BP was 147/63. MARITZA Romo MA [facility]08-15-2025 Miscellaneous Notes* Telephone Encounter - Ana Romo MA - 12/15/2024 1:00 PM EDT Call to Bhavna, notified her of message below from Provider, she verbalized understanding. Notespt takes BP once daily, but will increase to bid. Bhavna did talk to pt about 1 hour ago and asked for a recheck of BP. Pt BP was 147/63. MARITZA Romo MA * Telephone Encounter - Michael Puga DO - 12/15/2024 10:36 AM EDT Patient needs to be checking her BLOOD PRESSURE AM and PM and recording BLOOD PRESSURE and pulse rates. Call office with readings next week. * Telephone Encounter - Bhavna Arauz RN - 12/15/2024 10:26 AM EDT Bhavna calling from [facility] to report plan of care for patient and Longterm will visit patient 1 time a week for 4 weeks. Bhavna notes the following medications that are not on patient's medication list that patient currently is taking: Preservation Vitamins; Patient takes this twice a day Slow Iron Fe 45 mg; Patient takes this daily Bhavna notes that patient's blood pressure was 180/78. Patient had not taken morning medicationsyet. Patient was asymptomatic. Bhavna did notice that patient did have a burst blood vessel in her eye. She did not notice at the beginning of visit but by end patient's eye was bloodshot. Please review and Advise, Bhavna Arauz RN documented in this encounterPrem[facility]08-15-2025 Telephone encounter Note * Telephone Encounter - Michael Puga DO - 12/15/2024 10:36 AM EDT Patient needs to be checking her BLOOD PRESSURE AM and PM and recording BLOOD PRESSURE and pulse rates. Call office with readings next week. [facility]08-15-[facility] Telephone encounter Note* Telephone Encounter - Bhavna Arauz RN - 12/15/2024 10:26 AM EDT Bhavna calling from [facility] to report plan of care for patient and Longterm will visit patient 1 time a week for 4 weeks. Bhavna notes the following medications that are not on patient's medication list that patient currently is taking: Preservation Vitamins; Patient takes this twice a day Slow Iron Fe 45 mg; Patient takes this daily Bhavna notes that patient's blood pressure was 180/78. Patient had not taken morning medicationsyet. Patient was asymptomatic. Bhavna did notice that patient did have a burst blood vessel in her eye. She did not notice at the beginning of visit but by end patient's eye was bloodshot. Please review and Advise, Bhavna Arauz RN [facility]08-14-2025 Telephone encounter Note* Telephone Encounter - Jacque Machuca MA - 12/14/2024 2:59 PM EDT larissa informed Jacque Machuca MA [facility]08-14-2025 Miscellaneous Notes* Telephone Encounter - Jacque Machuca MA - 12/14/2024 2:59 PM EDT larissa informed Jacque Machuca MA * Telephone Encounter - Asia Rosales APRN.CNP - 12/14/2024 2:[address] Puga will follow. Asia Rosales APRN.CNP * Telephone Encounter - Amanda Pratt RN - 12/14/2024 2:27 PM EDT Larissa with [facility] calls to ask if provider would follow their HH orders for SN, PT, and clinical social work therapist. Patient currently at [facility] for HTN. Call back for Larissa is [phone]. Amanda Pratt RN documented in this encounterPrem[facility]08-14-2025 Telephone encounter Note * Telephone Encounter - Asia Rosales APRN.CNP - 12/14/2024 2:[address] Puga will follow. Asia Rosales APRN.CNP [facility]08-14-2025 Telephone encounter Note* Telephone Encounter - Amanda Pratt RN - 12/14/2024 2:27 PM EDT Larissa with [facility] calls to ask if provider would follow their HH orders for SN, PT, and clinical social work therapist. Patient currently at [facility] for HTN. Call back for Larissa is [phone]. Amanda Pratt RN [facility]08-14-2025 Discharge summary Author Radha Munoz [facility] Note Date/Time December 14, 2024 12 :17pm [facility] Medical Records Department [address] [place] [address] Discharge Summary 12/14/24 0906 MR#: [id number] Acct: [id number] Name: MICHAEL MEIER Rep #:[id number] 1 : 1940 84 From: Radha Munoz DO PCP: Dr. Michael Puga DO Status:AD M IN Location: [place] SI324-9 Providers Date of Admission: 12/03/24 Date of [...] likely contributed to this as well. 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 DC home with [facility] PT/SW/SN, palliative, CCN. No DME needs. 2. [...] tabs and fluid restriction. 9. Referred to [facility] for calf compression wraps with velcro. 10. [...] patch 1 patch topical DAILY #30 ea 08/13/25 meloxicam 15 mg tablet 15 mg PO [...] numbness who presented to the ED at [facility] on 11/29/24 c/o tremors in the [...] to the acute inpt rehab unit at [facility] on 12/03/24 for 3 hours of [...] needed. She was encouraged to go to [facility] to purchase calf compression stockings with Velcro [...] none Please Follow Up With: Karen Johnson, APPLIQUE CUTTER-C When: you have an appt scheduled......it is [...] SSRI after you have been taking it group home because you will have withdrawal. there are [...] do not hesitate to call me!. OFFICE: [phone] CELL: [phone] NURSES STATION ON REHAB: [phone] Discharge Orders/Prescriptions Prescriptions: New acetaminophen 500 mg [...] Referrals / Follow Up: Karen Johnson Marilee, APPLIQUE CUTTER-C [[facility]] - 12/20/24 10:00 am Disposition Disposition (needs filled in before D/C Order can be placed): Home Health Service Charges/Coding Visit Charges Inpatient E&M: 71478 Init Hosp L3 12/14/24 1040 <Electronically signed by Radha Munoz DO> Cosigner Signature (if applicable): CC: Marilee APPLIQUE CUTTER-C Karen Johnson; Dr. Michael Puga DO; Dr. [...] Munoz DO> Cosigner Signature (if applicable): cc: [facility] APPLIQUE CUTTER-C Karen Johnson; Dr. Michael Puga DO; Dr. Radha Munoz DO; Dr. Owen Alcala MD; NIDA Katz ~* Signed [facility] Work Phone: 1(404) 790-112808-14-2025 Discharge summary [facility] Medical Records Department [address] [place] [address] Discharge Summary 12/14/24 0906 MR#: [id number] Acct: [id number] Name: MICHAEL MEIER Rep #:[id number] 1 : 1940 84 From: Radha Munoz DO PCP: Dr. Michael Puga DO Status:AD M IN Location: [place] [address] Providers Date of Admission: 12/03/24 Date of Discharge: 12/14/24 Primary Care Physician: Karen Johnson APPLIQUE CUTTER Reason For Visit: DEBILITY Diagnosis Discharge Diagnosis [...] likely contributed to this as well. (12) USP current use of amiodarone: Status: Chronic Code(s): Z79.899 - Other group home (current) drug therapy (13) History of permanent [...] fecal abnormalities Plan 1. DC home with [facility] PT/SW/SN, palliative, CCN. No DME needs. 2. [...] tabs and fluid restriction. 9. Referred to [facility] for calf compression wraps with velcro. 10. Defer to cardiology whether to restart diuretics. Medications at Discharge Home Medications aspirin 81 mg tablet,delayed release (Adult Low Dose Aspirin) 81 mg PO QDAY heart [facility] #90 tabs 12/27/18 coenzyme Q10 100 mg [...] numbness who presented to the ED at [facility] on 11/29/24 c/o tremors in the [...] to the acute inpt rehab unit at [facility] on 12/03/24 for 3 hours of [...] elevated while sitting in the recliner. At [facility] rehab she has no edema in the ankles. Will defer to cardiology to restart diuretics if needed.She was encouraged to go to [facility] to purchase calf compression stockings with Velcro [...] and has simulated doing laundry at supervision. Mcihael was discharged on 04/15/25 to home and will have HHC. She has no DME needs. She will follow up with Dr. Alcala, Anabel Horne, palliative care and Karen Johnson APPLIQUE CUTTER for primary care. Physical Exam Const alert [...] none Please Follow Up With: Karen Johnson, APPLIQUE CUTTER-C When: you have an appt scheduled......it is [...] SSRI after you have been taking it group home because you will have withdrawal. there are [...] do not hesitate to call me!. OFFICE: [phone] CELL: [phone] NURSES STATION ON REHAB: [phone] Discharge Orders/Prescriptions Prescriptions: New acetaminophen 500 mg [...] Referrals / Follow Up: Karen Johnson Marilee, APPLIQUE CUTTER-C [[facility]] - 12/20/24 10:00 am Disposition Disposition (needs filled in before D/C Order can be placed): Home Health Service Charges/Coding Visit Charges Inpatient E&M: 74518 Init Hosp L3 12/14/24 1040 Cosigner Signature (if applicable): CC: [facility] APPLIQUE CUTTER-C Karen Johnson; Dr. Michael Puga DO; Dr. [...] 12/14/24 1217 Cosigner Signature (if applicable): cc: [facility] MIKE Johnson; Dr. Michael Puga DO; Dr. Radha Munoz DO; Dr. Owen Alcala MD; NIDA Katz ~* Signed [facility]08-14-2025 Discharge summary Author Radha Munoz [facility] Note Date/Time December 14, 2024 8: 53am [facility] Medical Records Department [address] [place] [address] Instructions for Home/Discharge Instructions 12/13/24 1208 MR#: [id number] Acct: [id number] Name: MICHAEL MEIER [place] Rep #:[id number] 1 : 1940 84 From: Radha Munoz DO PCP: Dr. Michael Puga DO Status:AD M IN Discharge Instructions DC [...] Care Please Follow Up With: Karen Johnson, APPLIQUE CUTTER-C When: you have an appt scheduled......it is [...] SSRI after you have been taking it terminal operations supervisor because you will have withdrawal. there are [...] do not hesitate to call me!. OFFICE: [phone] CELL: [phone] NURSES STATION ON REHAB: [phone] Discharge Orders/Prescriptions Prescriptions: New acetaminophen 500 mg [...] QDAY Referrals / Follow Up: Karen Johnson [facility], APPLIQUE CUTTER-C [[facility]] - 12/20/24 10:00 am Disposition Disposition (needs filled in before D/C Order can be placed): Home Health Service 12/14/24 0853<Electronically signed by Radha Munoz DO>Radha Munoz DO CC: [facility] APPLIQUE CUTTER-C Karen Johnson; Dr. Michael Puga DO; Dr. Owen Alcala MD; Dr. Tavares Anthony MD; NIDA Katz ~ Signed [facility] Work Phone: 1(787) 370-223708-14-2025 [facility]08-14-2025 Discharge summary [facility] Medical Records Department [address] [place] [address] Instructions for Home/Discharge Instructions 12/13/24 1208 MR#: [id number] Acct: [id number] Name: MICHAEL MEIER Rep #:[id number] 1 : 1940 84 From: Radha Munoz DO PCP: Dr. Michael Puga DO Status:AD M IN Discharge Instructions DC [...] Up Care Please Follow Up With: Karen Johnson Marilee, APPLIQUE CUTTER-C When: you have an appt scheduled......it is [...] SSRI after you have been taking it group home because you will have withdrawal. there are [...] do not hesitate to call me!. OFFICE: [phone] CELL: [phone] NURSES STATION ON REHAB: [phone] Discharge Orders/Prescriptions Prescriptions: New acetaminophen 500 mg [...] Referrals / Follow Up: Karen Johnson Marilee, APPLIQUE CUTTER-C [[facility]] - 12/20/24 10:00 am Disposition Disposition (needs filled in before D/C Order can be placed): Home Health Service 12/14/24 0853Radha Munoz DO CC: Marilee APPLIQUE CUTTER-C Karen Johnson; Dr. Michael Puga DO; Dr. Owen Alcala MD; Dr. Tavares Anthony MD; NIDA Katz ~ Signed [facility]08-12-2025 Progress note Author Radha Tammy [facility] Note Date/Time December 12, 2024 11 :20am [facility] Medical Records Department [address] [place] [address] Progress Note 12/12/24 1050 MR#: [id number] Acct: [id number] Name: MICHAEL MEIER Rep #:[id number] 1 : 1940 84 From: Radha Munoz DO PCP: Dr. Michael Puga, DO Status:AD M IN Location: [place] [address]-1 Subjective Subjective Afebrile VSS - Maintaining appropriate [...] eating 75-100% of all her meals. D/W splitting machine operator helper......will decrease the calories to promote weight loss. [...] obesity with BMI of 40.0-44.9, adult: (12) USP current use of amiodarone: (13) History of [...] of Paxil. Charges/Coding Visit Charges Inpatient E&M: 53519 Subs Hosp L1 12/12/24 1120 <Electronically signed by Radha Munoz DO> Radha Munoz DO Cosigner Signature (if applicable): CC: ~ Signed [facility] Work Phone: 1(595) 871-926608-12-2025 Progress note [facility] Medical Records Department [address] [place] [address] Progress Note 12/12/24 1050 MR#: [id number] Acct: [id number] Name: MICHAEL MEIER Rep #:[id number] 1 : 1940 84 From: Radha Munoz DO PCP: Dr. Michael Puga, DO Status:AD M IN Location: [address] Subjective Subjective Afebrile VSS - Maintaining appropriate [...] eating 75-100% of all her meals. D/W splitting machine operator helper......will decrease the calories to promote weight loss. [...] mask rather than due to medication. Michael jessica blame the fatigue on the meds.....oriana the [...] obesity with BMI of 40.0-44.9, adult: (12) 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: (13) History of [...] of Paxil. Charges/Coding Visit Charges Inpatient E&M: 62532 Subs Hosp L1 12/12/24 1120 Radha Munoz DO Cosigner Signature (if applicable): CC: ~ Signed [facility]08-11-2025 Progress note Author Radha Munoz [facility] Note Date/Time December 11, 2024 11 :26am [facility] Medical Records Department [address] [place] [address] Progress Note 12/11/24 0856 MR#: [id number] Acct: [id number] Name: MICHAEL MEIER Rep #:[id number] 9 : 1940 84 From: Radha Munoz DO PCP: Dr. Michael Puga, DO Status:AD M IN Location: [place] [address] Subjective Subjective Afebrile VSS -the blood pressure [...] obesity with BMI of 40.0-44.9, adult: (12) USP current use of amiodarone: (13) History of [...] the day. Charges/Coding Visit Charges Inpatient E&M: 56769 Subs Hosp L1 12/11/24 1126 <Electronically signed by Radha Munoz DO> Radha Munoz DO Cosigner Signature (if applicable): CC: ~ Signed [facility] Work Phone: 1(179) 679-836908-11-2025 Progress note [facility] Medical Records Department [address] [place] [address] Progress Note 12/11/24 0856 MR#: [id number] Acct: [id number] Name: MICHAEL MEIER Rep #:[id number] 9 : 1940 84 From: Radha Munoz DO PCP: Dr. Michael Puga, DO Status:AD M IN Location: [place] [address] Subjective Subjective Afebrile VSS -the blood pressure [...] obesity with BMI of 40.0-44.9, adult: (12) 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: (13) History of [...] and Prednisone. Will not continue Prednisone at DC.HGB is stable. 7. I suspect the hyponatremia is related to SSRI.......Cortrosyn stim test was normal. Recheck a urine sodium, urine osmolality and serum osmo in the AM and BMP. Continue the salt tabs and fluid restriction. Will decrease the Sertraline to 50 mg daily. This could possibly cause drowsiness........will give it later in the day. Charges/Coding Visit Charges Inpatient E&M: 91041 Subs Hosp L1 12/11/24 1126 Radha Munoz DO Cosigner Signature (if applicable): CC: ~ Signed [facility]08-08-2025 Progress note Author Radha Vitaliyafrica [facility] Note Date/Time December 08, 2024 3:0 3pm [facility] Medical Records Department [address] [place] [address] Progress Note 12/07/24 1153 MR#: [id number] Acct: [id number] Name: MICHAEL MEIER Rep #:[id number] 1 : 1940 84 From: Radha Munoz DO PCP: Dr. 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: (13) History of [...] BMP Wednesday Charges/Coding Visit Charges Inpatient E&M: 94032 Subs Hosp L2 12/08/24 1432 <Electronically signed by Radha Munoz DO> Radha Munoz DO Coswendyer Signature (if applicable): CC: ~ Signed ADDENDUM [...] Signature (if applicable): Date cc: ~* Signed [facility] Work Phone: 1(272) 722-946608-08-2025 Progress note Author Radha Munoz [facility] Note Date/Time December 08, 2024 2:1 6pm [facility] Medical Records Department [address] [place] [address] Progress Note 12/06/24 1046 MR#: [id number] Acct: [id number] Name: MICHAEL MEIER Rep #:[id number] 5 : 1940 84 From: Radha Munoz DO PCP: Dr. Michael Puga, DO Status:AD M IN Location: [place] [address] Subjective Subjective Afebrile The blood pressure over [...] obesity with BMI of 40.0-44.9, adult: (12) USP current use of amiodarone: (13) History of [...] compression to the legs. 4. Consult the splitting machine operator helper for education and counselling in weight loss. 5. Restart the Paxil in the AM at 1/2 the dose (20 mg daily) 6. Would like to wean off the Ativan. 7. BMP in the AM 8. Restart gabapentin at 200 mg nightly......she has restless leg and some chronic back pain......this may be waking her up at night. Charges/Coding Visit Charges Inpatient E&M: 72093 Subs Hosp L1 12/08/24 1416 <Electronically signed by Radha Munoz DO> Radha Munoz DO Cosigner Signature (if applicable): CC: ~ Signed [facility] Work Phone: 1(439) 156-243308-08-[address] note [facility] Medical Records Department [address] [place] [address] Progress Note 12/07/24 1153 MR#: [id number] Acct: [id number] Name: MICHAEL MEIER Rep #:[id number] 1 : 1940 84 From: Radha Munoz DO PCP: Dr. 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 Radha Munoz, on 12/08/24 at 1503 Addendum discussed dosing [...] Signature (if applicable): Date cc: ~* Signed [facility]08-08-2025 Progress note [facility] Medical Records Department [address] [place] [address] Progress Note 12/06/24 1046 MR#: [id number] Acct: [id number] Name: MICHAEL MEIER Rep #:[id number] 5 : 1940 84 From: Radha Munoz DO PCP: Dr. 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 4. Consult the splitting machine operator helper for education and counselling in weight loss. 5. Restart the Paxil in the AM at 1/2 the dose (20 mg daily) 6. Would like to wean off the Ativan. 7. BMP in the AM 8. Restart gabapentin at 200 mg nightly......she has restless leg and some chronic back pain......this may be waking her up at night. Charges/Coding Visit Charges Inpatient E&M: 88459 Subs Hosp L1 12/08/24 1416 Radha Munoz DO Cosign Signature (if applicable): CC: ~ Signed [facility]08-05-2025 NoteHNO ID: [id number] Author: MAGALY MARINO MA Service: ? Author Type: Coil Finisher Type: Progress Notes Filed: 12/05/2024 13:17 Note [...] Magaly Marino MA December 05, 2024 1:16 [facility]08-05-2025 Progress note Author Radha Munoz [facility] Note Date/Time December 05, 2024 10: 40am [facility] Medical Records Department [address] [place] [address] Progress Note 12/05/24 0739 MR#: [id number] Acct: [id number] Name: MICHAEL MEIER Rep #:[id number] 7 : 1940 84 From: Radha Munoz DO PCP: Dr. 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 Charges/Coding Visit Charges Inpatient E&M: 99874 Subs Hosp L1 12/05/24 1040 <Electronically signed by Radha Munoz DO> Radha Munoz DO Cosign Signature (if applicable): CC: ~ Signed [facility] Work Phone: 1(681) 284-570708-05-2025 Progress note [facility] Medical Records Department [address] [place] [address] Progress Note 12/05/24 0739 MR#: [id number] Acct: [id number] Name: MICHAEL MEIER Rep #:[id number] 7 : 1940 84 From: Radha Munoz DO PCP: Dr. 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 Charges/Coding Visit Charges Inpatient E&M: 28864 Subs Hosp L1 12/05/24 1040 Radha Munoz DO Hdz Signature (if applicable): CC: ~ Signed [facility]08-05-2025 NotePatient Outreach (NETNAV) MICHAEL MEIER ([id number]) 1940 F Date Time Provider Department 12/05/24 [...] or unnecessary to reach patient: Left message Yoicst message sent HCC related Navigation Signature: Magaly Marino MA December 05, 2024 1:16 PM Allergies As of Date: 12/05/2024 Noted Allergy Reaction CIPROFLOXACIN 09/05/2018 2 - Rash DEMEROL (MEPERIDINE (PF)) 02/06/2011 11 - Vomiting OPIOIDS - MORPHINE ANALOGUES 03/17/2001 5 - Intolerance Comments: nausea, dizzy, "sees things" OPIOIDS-MEPERIDINE AND RELATED 02/17/2001 Comments: nausea/vomiting PENICILLIN G 02/17/2001 Comments: imani PRAVACHOL (PRAVASTATIN SODIUM) 03/09/2016 14 - Other: See Comments Comments: Leg cramps SULFA (SULFONAMIDE ANTIBIOTICS) 03/17/2001 Comments: hives VICODIN (HYDROCODONE-ACETAMINOPHE*01/08/2005 5 - Intolerance Comments: dizzy,nausea,vomiting,headache ZITHROMAX (AZITHROMYCIN) 05/20/2017 5 - Intolerance Date Reviewed: 08/30/2024 Reviewed by: Julianna Cano LPN - Fully Assessed Reason for Visit: Population Health Navigation Outreach [3910] Cmt: Elberta/Workbench/ACO Prescriptions as of 12/05/2024 - rosuvastatin (CRESTOR) [...] FACE NEC [D23.30] (more content not included)... [facility]08-04-2025 History and physical note Author Radha Munoz [facility] Note Date/Time December 04, 2024 5:[address] [facility] Medical Records Department [address] [place] [address] Post Admission Physician Pito 12/04/24 3110 MR#: [id number] Acct: [id number] Name: MICHAEL MEIER Rep #:[id number] 9 : 1940 84 From: Radha Munoz DO PCP: Dr. Michael Puga, DO Status:AD M IN Location: [place] [address] Admission Information Primary Diagnosis:: Debility due to [...] Skin integrity and Medication Management Patient needs Landscape Crew Member/ Case Management for: Discharge Planning, Arranging Home [...] Therapy Was Preadmission Assessment Accurate?: Yes 12/04/24 0561 <Electronically signed by Radha Munoz DO> Cosigner Signature (if applicable): CC: ~ Signed [facility] Work Phone: 1(863) 880-997408-04-2025 History and physical note Author Radha Munoz [facility] Note Date/Time December 04, 2024 5:[address] [facility] Medical Records Department [address] [place] [address] History & Physical Exam 12/04/24 1159 MR#: [id number] Acct: [id number] Name: MICHAEL MEIER Rep #:[id number] 8 : 1940 84 From: Radha Munoz DO PCP: Dr. Michael Puga, DO Status:AD M IN Location: [place] [address] HPI - General General Date of Admission: [...] numbness who presented to the Ed at [facility] on 11/29/24 c/o tremors oin the [...] to the acute inpt rehab unit at [facility] on 12/03/24 for 3 hours of [...] she was still taking it at admission [facility]. She has gained a of wt since [...] Her last visit with Cardiology was 11/02/24. 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 Charges/Coding Visit Charges Inpatient E&M: 91650 Init Hosp L3 12/04/24 1736 <Electronically signed by Radha Munoz DO> Cosigner Signature (if applicable): CC: Dr. Michael Puga DO; Dr. Radha Munoz DO; Dr. Owen Alcala MD; NIDA Katz~ Signed [facility] Work Phone: 1(977) 597-560908-04-2025 History and physical note [facility] Medical Records Department [address] [place] [address] Post Admission Physician Eval 12/04/24 1736 MR#: [id number] Acct: [id number] Name: MICHAEL MEIER Rep #:[id number] 9 : 1940 84 From: Radha Munoz DO PCP: Dr. Michael Puga DO Status:AD M IN Location: [place] [address] Admission Information Primary Diagnosis:: Debility due to [...] Skin integrity and Medication Management Patient needs Landscape Crew Member/ Case Management for: Discharge Planning, Arranging Home [...] Cosigner Signature (if applicable): CC: ~ Signed [facility]08-04-2025 History and physical note [facility] Medical Records Department [address] [place] [address] History & Physical Exam 12/04/24 1159 MR#: [id number] Acct: [id number] Name: MICHAEL MEIER Rep #:[id number] 8 : 1940 84 From: Radha Munoz DO PCP: Dr. Michael Puga, DO Status:AD M IN Location: [id number] [facility] - General General Date of Admission: 12/03/24 [...] numbness who presented to the Ed at [facility] on11/29/24 c/o tremors oin the UE's [...] to the acute inpt rehab unit at [facility] on 12/03/24 for 3 hours of therapy daily to restore function/independence at or near her level prior to admission the [facility]ital. All lab from this morning is personally [...] she was still taking it at admission [facility]. She has gained a of wt since [...] hospital.Her last visit with Cardiology was 11/02/24. 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 Charges/Coding Visit Charges Inpatient E&M: 95127 Init Hosp L3 12/04/24 1736 Cosigner Signature (if applicable): CC: Dr. Michael Puga DO; Dr. Radha Munoz DO; Dr. Owen Alcala MD; NIDA Katz~ Signed [facility]04[facility] Discharge summary [facility] Medical Records Department [address] [place] [address] Instructions for Home/Discharge Instructions 12/03/24 1438 MR#: [id number] Acct: [id number] Name: MICHAEL MEIER Rep #:[id number] 3 : 1940 84 From: Waleska Phillips [...] toschedule an appointment for your tremors (ph [phone]) -Please call your primary care provider's office [...] DO; Dr. Jonny Vicente MD ~ Signed [facility]08-03-2025 [facility]08-02-2025 Progress note Author Waleska Phillips [facility] Note Date/Time December 02, 2024 4:[address] [facility] Medical Records Department [address] [place] [address] Progress Note - Hospitalist 12/02/24 1614 MR#: [id number] Acct: [id number] Name: MCIHAEL MEIER Rep #:[id number] 4 : 1940 84 From: Waleska Phillips MD PCP: Dr. Michael Puga, DO Status:AD M CORBY Location: [place] [address] Reason for Visit Chief Complaint: Right Upper [...] (Auto) 72.7 H, Lymph % (Auto) 11.2 L,Kenedy % (Auto) 11.7 H, Eos % (Auto) [...] DVT: SCDs Charges/Coding Visit Charges Inpatient E&M: 82448 Subs Hosp L1 12/02/24 1617 <Electronically signed by Waleska Phillips MD> Cosigner Signature (if applicable): CC: ~ Signed [facility] Work Phone: 1(264) 496-629408-02-2025 Progress note [facility] Medical Records Department [address] [place] [address] Progress Note - Hospitalist 12/02/24 1614 MR#: [id number] Acct: [id number] Name: MICHAEL MEIER Rep #:[id number] 4 : 1940 84 From: Waleska Phillips MD PCP: Dr. Michael Puga, DO Status:AD [facility] Location: [place] [address] Reason for Visit Chief Complaint: Right Upper [...] (Auto) 72.7 H, Lymph % (Auto) 11.2 L,Kenedy % (Auto) 11.7 H, Eos % (Auto) [...] Hypertensive urgency: PLAN: Plan # Leg tremors -8/: CT with no acute findings, feels jitters [...] DVT: SCDs Charges/Coding Visit Charges Inpatient E&M: 02582 Subs Hosp L1 12/02/24 1617 Cosigner Signature (if applicable): CC: ~ Signed [facility]08-01-2025 Progress note Author Waleska Phillips [facility] Note Date/Time December 01, 2024 5:5 7pm [facility] Medical Records Department [address] [place] [address] Progress Note - Hospitalist 12/01/24 1451 MR#: [id number] Acct: [id number] Name: MICHAEL MEIER Rep #:[id number] 4 : 1940 84 From: Waleska Phillips MD PCP: Dr. Michael Puga, DO Status:AD M CORBY Location: [place] [address] Reason for Visit Chief Complaint: Right Upper [...] (Auto) 70.9 H, Lymph % (Auto) 13.0 L,Kenedy % (Auto) 12.3 H, Eos % (Auto) [...] deficits, cranial nerves II through XII intact, [id number] with some difficulty with left hand but [...] documentation, 43Minutes Charges/Coding Visit Charges Inpatient E&M: 76989 Subs Hosp L2 12/01/24 9600 <Electronically signed by Waleska Phillips MD> Cosigner Signature (if applicable): CC: ~ Signed [facility] Work Phone: 1(711) 329-924108-01-2025 Progress note [facility] Medical Records Department [address] [place] [address] Progress Note - Hospitalist 12/01/24 7194 MR#: [id number] Acct: [id number] Name: MICHAEL MEIER Rep #:[id number] 4 : 1940 84 From: Waleska Phillips MD PCP: Dr. Michael Puga, DO Status:AD M CORBY Location: [place] [address] Reason for Visit Chief Complaint: Right Upper [...] (Auto) 70.9 H, Lymph % (Auto) 13.0 L,Kenedy % (Auto) 12.3 H, Eos % (Auto) [...] deficits, cranial nerves II through XII intact, [id number] with some difficulty with left hand but [...] documentation, 43Minutes Charges/Coding Visit Charges Inpatient E&M: 90817 Subs Hosp L2 12/01/24 1757 Cosigner Signature (if applicable): CC: ~ Signed [facility]08-01-2025 Consult note Author Kyara Ponce [facility] Note Date/Time December 01, 2024 12: 49pm [facility] Medical Records Department [address] [place] [address] Consultation - Neurology 12/01/24 1243 MR#: [id number] Acct: [id number] Name: MICHAEL MEIER Rep #:[id number] 4 : 1940 84 From: Kyara Ponce MD PCP: Dr. Michael Puga, DO Status:FELIBERTO TAVAREZ Location: [place] [address] Assessment and Plan: Neuro Assessment/Plan 84 F with a past medical history of essential hypertension, hyperlipidemia, hypothyroidism paroxysmal atrial fibrillation SSS; s/p PPM (2021), morbid obesity, JOSE, pulmonary hypertension, neuropathy; depression with anxiety OA whopresented to [facility] ER complaining of Right upper and [...] neuropathy; depression with anxiety OA whopresented to [facility] ER complaining of Right upper and [...] she threw herself back to her chair. 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 Reading Location: [facility] Active Medications Active Medications Active Medications: [...] 200 Mg Tablet PO 200 mg DAILYCM BRANDON Administration Aspirin 81 mg 11/30/24 08:00 12/01/24 08:56 Aspirin E.C. 81 Mg Tablet PO 81 mg BREAKFAST BRANDON Administration Atorvastatin Calcium 20 mg 11/30/24 22:00 11/30/24 22:18 Atorvastatin Calcium 20 Mg Tablet PO 20 mg QHS BRANDON Administration Azelastine HCl 1 ml 11/29/24 22:56 Azelastine Hcl 6 Ml Drops OPHTHALMIC BID PRN PRN ITCHING EYES Budesonide 0.5 mg 11/30/24 06:00 12/01/24 06:37 Budesonide Respules 0.5 Mg/2 Ml Ampul.Neb. INHALATION 0.5 mg Q12H.RT BRANDON Administration Diltiazem HCl 240 mg 11/29/24 22:56 11/30/24 22:18 Diltiazem Cd 240 Mg Capsule PO 240 mg QHS BRANDON Administration Protocol Furosemide 20 mg 11/30/24 10:00 12/01/24 08:56 Furosemide 20 Mg Tablet PO 20 mg DAILY BRANDON Administration Protocol Gabapentin 300 mg 11/29/24 23:45 11/30/24 22:19 Gabapentin 300 Mg Capsule PO 300 mg QHS BRANDON Administration Glycerin/Hypromellose/Polyethylene 1 - 2 drp 11/29/24 22:56 11/30/24 05:34 Glycerin/Hypromellose/Vrv338 15 Ml Bottle EACH EYE 1 drp Q2H PRN PRN Administration DRY EYES Hydralazine HCl 10 mg 11/29/24 21:47 Hydralazine 20 Mg/Ml Vial IV Q8H PRN PRN SBP GREATER THAN 170 Protocol Hydralazine HCl 50 mg 11/30/24 08:00 12/01/24 06:11 Hydralazine 50 Mg Tablet PO 50 mg TID BRANDON Administration Protocol Sodium Chloride 250 mls @ 15 mls/hr 11/29/24 23:08 IV .[id number] PRN Additional IVPB Infusion Sodium Chloride 250 mls @ 15 mls/hr 11/29/24 23:08 IV .[id number] PRN Saline Flush Levothyroxine Sodium 50 mcg 11/30/24 06:00 12/01/24 06:11 Levothyroxine 50 Mcg Tablet PO 50 mcg DAILY@0600 BRANDON Administration Lorazepam 0.5 mg 11/29/24 22:56 11/30/24 22:44 Lorazepam 0.5 Mg Tablet PO 0.5 mg BID PRN PRN Administration Anxiety Lorazepam 1 mg 11/30/24 07:30 Lorazepam 1 Mg Tablet PO X1 PRN prior to MRI Losartan Potassium 100 mg 11/30/24 10:00 12/01/24 08:56 Losartan Potassium 100 Mg Tablet PO 100 mg DAILY BRANDON Administration Protocol Magnesium Hydroxide 30 ml 11/29/24 22:56 Magnesium Hydroxide 30 Ml Udc PO DAILY PRN PRN Constipation Melatonin 3 mg 11/29/24 22:56 Melatonin 3 Mg Tablet PO QHS PRN PRN INSOMNIA Meloxicam 15 mg 11/30/24 10:00 12/01/24 08:56 Meloxicam 15 Mg Tablet PO 15 mg DAILY BRANDON Administration Multivitamins 1 cap 11/30/24 10:00 12/01/24 08:55 Vitamin B Comp W-C Capsule PO 1 cap DAILY BRANDON Administration Ondansetron HCl 4 mg 11/29/24 22:56 Ondansetron 4 Mg/2 Ml Vial IV Q8H PRN PRN NAUSEA/VOMITING Pantoprazole Sodium 20 mg 11/30/24 10:00 12/01/24 08:56 Pantoprazole Sodium 20 Mg Tablet PO 20 mg DAILY BRANDON Administration Paroxetine HCl 40 mg 11/30/24 10:00 12/01/24 08:55 Paroxetine 20 Mg Tablet PO 40 mg DAILY BRANDON Administration Sodium Chloride 10 - 40 ml 11/29/24 23:08 12/01/24 08:57 0.9% Saline Lock 10 Ml Syringe IV 10 ml UD PRN Administration SALINE FLUSH Spironolactone 25 mg 11/30/24 08:00 12/01/24 08:56 Spironolactone 25 Mg Tablet PO 25 mg DAILYCM BRANDON Administration Protocol Sucralfate 1 gm 11/29/24 22:56 Sucralfate 1 Gm Tablet PO TID PRN PRN digestion 12/01/24 1249 <Electronically signed by Kyara Ponce MD> Cosigner Signature (if applicable): CC: Dr. Michael Puga, DO~ Signed [facility] Work Phone: 1(163) 654-756708-01-2025 Consult note [facility] Medical Records Department [address] [place] [address] Consultation - Neurology 12/01/24 1243 MR#: [id number] Acct: [id number] Name: MICHAEL MEIER Rep #:[id number] 4 : 1940 84 From: Kyara Ponce MD PCP: Dr. Michael Puga, DO Status:AD M CORBY Location: [place] [address] Assessment and Plan: Neuro Assessment/Plan 84 F with a past medical history of essential hypertension, hyperlipidemia, hypothyroidism paroxysmal atrial fibrillation SSS; s/p PPM (2021), morbid obesity, JOSE, pulmonary hypertension, neuropathy;depression with anxiety OA whopresented to [facility] ER complaining of Right upperand lower [...] hypertension, neuropathy;depression with anxiety OA whopresented to [facility] ER complaining of Right upperand lower [...] she threw herself back to her chair. [facility] Medical History USP current use of amiodarone Right carotid bruit [...] Results Procedure Details EEG Procedure Details: MICHAEL MEIRE is a 84 year old F with [...] (Auto) 70.9 H, Lymph % (Auto) 13.0 L,Kenedy % (Auto) 12.3 H, Eos % (Auto) [...] IMPRESSION: No acute intracranial abnormality. Reading Location: [id number] Active Medications Active Medications Active Medications: Current [...] 200 Mg Tablet PO 200 mg DAILYCM BRANDON Administration Aspirin 81 mg 11/30/24 08:00 12/01/24 08:56 Aspirin E.C. 81 Mg Tablet PO 81 mg BREAKFAST BRANDON Administration Atorvastatin Calcium 20 mg 11/30/24 22:00 11/30/24 22:18 Atorvastatin Calcium 20 Mg Tablet PO 20 mg QHS BRANDON Administration Azelastine HCl 1 ml 11/29/24 22:56 Azelastine Hcl 6 Ml Drops OPHTHALMIC BID PRN PRN ITCHING EYES Budesonide 0.5 mg 11/30/24 06:00 12/01/24 06:37 Budesonide Respules 0.5 Mg/2 Ml Ampul.Neb. INHALATION 0.5 mg Q12H.RT BRANDON Administration Diltiazem HCl 240 mg 11/29/24 22:56 11/30/24 22:18 Diltiazem Cd 240 Mg Capsule PO 240 mg QHS BRANDON Administration Protocol Furosemide 20 mg 11/30/24 10:00 12/01/24 08:56 Furosemide 20 Mg Tablet PO 20 mg DAILY BRANDON Administration Protocol Gabapentin 300 mg 11/29/24 23:45 11/30/24 22:19 Gabapentin 300 Mg Capsule PO 300 mg QHS BRANDON Administration Glycerin/Hypromellose/Polyethylene 1 - 2 drp 11/29/24 22:56 11/30/24 05:34 Glycerin/Hypromellose/Grs916 15 Ml Bottle EACH EYE 1 drp Q2H PRN PRN Administration DRY EYES Hydralazine HCl 10 mg 11/29/24 21:47 Hydralazine 20 Mg/Ml Vial IV Q8H PRN PRN SBP GREATER THAN 170 Protocol Hydralazine HCl 50 mg 11/30/24 08:00 12/01/24 06:11 Hydralazine 50 Mg Tablet PO 50 mg TID BRANDON Administration Protocol Sodium Chloride 250 mls @ 15 mls/hr 11/29/24 23:08 IV .[id number] PRN Additional IVPB Infusion Sodium Chloride 250 mls @ 15 mls/hr 11/29/24 23:08 IV .[id number] PRN Saline Flush Levothyroxine Sodium 50 mcg 11/30/24 06:00 12/01/24 06:11 Levothyroxine 50 Mcg Tablet PO 50 mcg DAILY@0600 BRANDON Administration Lorazepam 0.5 mg 11/29/24 22:56 11/30/24 22:44 Lorazepam 0.5 Mg Tablet PO 0.5 mg BID PRN PRN Administration Anxiety Lorazepam 1 mg 11/30/24 07:30 Lorazepam 1 Mg Tablet PO X1 PRN prior to MRI Losartan Potassium 100 mg 11/30/24 10:00 12/01/24 08:56 Losartan Potassium 100 Mg Tablet PO 100 mg DAILY BRANDON Administration Protocol Magnesium Hydroxide 30 ml 11/29/24 22:56 Magnesium Hydroxide 30 Ml Udc PO DAILY PRN PRN Constipation Melatonin 3 mg 11/29/24 22:56 Melatonin 3 Mg Tablet PO QHS PRN PRN INSOMNIA Meloxicam 15 mg 11/30/24 10:00 12/01/24 08:56 Meloxicam 15 Mg Tablet PO 15 mg DAILY BRANDON Administration Multivitamins 1 cap 11/30/24 10:00 12/01/24 08:55 Vitamin B Comp W-C Capsule PO 1 cap DAILY BRANDON Administration Ondansetron HCl 4 mg 11/29/24 22:56 Ondansetron 4 Mg/2 Ml Vial IV Q8H PRN PRN NAUSEA/VOMITING Pantoprazole Sodium 20 mg 11/30/24 10:00 12/01/24 08:56 Pantoprazole Sodium 20 Mg Tablet PO 20 mg DAILY BRANDON Administration Paroxetine HCl 40 mg 11/30/24 10:00 12/01/24 08:55 Paroxetine 20 Mg Tablet PO 40 mg DAILY BRANDON Administration Sodium Chloride 10 - 40 ml 11/29/24 23:08 12/01/24 08:57 0.9% Saline Lock 10 Ml Syringe IV 10 ml UD PRN Administration SALINE FLUSH Spironolactone 25 mg 11/30/24 08:00 12/01/24 08:56 Spironolactone 25 Mg Tablet PO 25 mg DAILYCM BRANDON Administration Protocol Sucralfate 1 gm 11/29/24 22:56 Sucralfate 1 Gm Tablet PO TID PRN PRN digestion 12/01/24 1249 Cosigner Signature (if applicable): CC: Dr. Michael Puga, DO~ Signed [facility]07-31-2025 Progress note Author Jonny Vicente [facility] Note Date/Time November 30, 2024 5:22 pm [facility] Medical Records Department [address] [place] [address] Progress Note - Hospitalist 11/30/24 1626 MR#: [id number] Acct: [id number] Name: ALEXANDRUABNERMICHAEL Augusta Rep #:[id number] 8 : 1940 84 From: Jonny pacheco MD PCP: Dr. Michael Puga, DO Status:AD M CORBY Location: [place] [address] Subjective Subjective No issues overnight, admitted with [...] (Auto) 72.4 H, Lymph % (Auto) 11.5 L,Kenedy % (Auto) 12.1 H, Eos % (Auto) [...] Clarity Clear, Urine pH 6.0, Ur Specific [place] 1.010, Urine Protein Negative, Urine Glucose (UA) [...] 73.5 H, Lymph % (Auto) 9.5 L, Kenedy % (Auto) 13.0 H, Eos % (Auto) [...] IMPRESSION: No acute intracranial abnormality. Reading Location: [facility] Brain CT 11/30/24 14:20 IMPRESSION: No acute intracranial abnormality. Reading Location: [facility] Physical Exam Narrative General: Alert, Oriented [...] DVT: SCDs Charges/Coding Visit Charges Inpatient E&M: 73438 Subs Hosp L2 11/30/24 1722 <Electronically signed by Jonny Vicente MD> Cosigner Signature (if applicable): CC: ~ Signed [facility] Work Phone: 1(724) 413-286107-31-[address] [facility] Medical Records Department [address] [place] [address] Progress Note - Hospitalist 11/30/24 1626 MR#: [id number] Acct: [id number] Name: MICHAEL MEIER Rep #:[id number] 8 : 1940 84 From: Jonny pacheco MD PCP: Dr. Michael Puga, DO Status:AD M CORBY Location: [place] [address] Subjective Subjective No issues overnight, admitted with [...] (Auto) 72.4 H, Lymph % (Auto) 11.5 L,Kenedy % (Auto) 12.1 H, Eos % (Auto) [...] Clarity Clear, Urine pH 6.0, Ur Specific [place] 1.010, Urine Protein Negative, Urine Glucose (UA) [...] 73.5 H, Lymph % (Auto) 9.5 L, [place]enedy % (Auto) 13.0 H, Eos % (Auto) [...] IMPRESSION: No acute intracranial abnormality. Reading Location: [facility] Brain CT 11/30/24 14:20 IMPRESSION: No acute intracranial abnormality. Reading Location: [facility] Physical Exam Narrative General: Alert, Oriented [...] DVT: SCDs Charges/Coding Visit Charges Inpatient E&M: 98207 Subs Hosp L2 11/30/24 1722 Cosigner Signature (if applicable): CC: ~ Signed [facility]07-31-2025 Radiology Diagnostic study note [facility] Imaging Services [address] [place] [address] Brain/Head without Contrast MR#: [id number] Acct: [id number] Name: MICHAEL MEIER Rep #: [id number] 0 : 1940 F 84 From: Jose D Saldana MD PCP: Dr. Michael Puga, DO Status: AD M CORBY Study:Brain/Head without Contrast Date of Exa m: 11/30/24 Exam# [id number] Ordering Dr: Jonny Vicente MD PROCEDURE: BRAIN/HEAD [...] IMPRESSION: No acute intracranial abnormality. Reading Location: [facility] CC: Dr. Michael Puga DO; Dr. Jonny Vicente MD ~ Hole Puncher Strap: Signed [facility]07-31-2025 History and physical note Author Tacho Goncalves [facility] Note Date/Time November 30, 2024 6:[address] [facility] Medical Records Department [address] [place] [address] H&P Exam - Hospitalist 11/29/240 MR#: [id number] Acct: [id number] Name: MICHAEL MEIER [place] Rep #:[id number] 4 : 1940 84 From: Tacho Vanegas DO PCP: Dr. Michael Puga DO Status:AD M CORBY Location: [place] [id number] HPI - General General Date of Admission: 11/29/24 Date of Service: 11/29/24 Chief Complaint: Right Upper and Lower Extremity Tremors. HPI Narrative MICHAEL BORNSTINE, is a 84 F with a past [...] daily and OA; onmeloxicam who presents to [facility] ER complaining of Right upper and [...] expected to be less than 2 midnights. 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 Reading Location: [id number] Assessment & Plan Assessment/Plan (1) Hypertensive emergency [...] 85 minutes. Charges/Coding Visit Charges OBSV E&M: 93881 Observ/hosp same date L3 11/30/24 0634 <Electronically signed by Tacho Davis DO> Cosigner Signature (if applicable): CC: Dr. Tacho Davis DO; Dr. Michael Puga DO~ Signed [facility] Work Phone: 1(798) 238-936007-31-2025 History and physical note [facility] Medical Records Department [address] [place] [address] H&P Exam - Hospitalist 11/29/242119 MR#: [id number] Acct: [id number] Name: MICHAEL MEIER Rep #:[id number] : 1940 84 From: Tacho Vanegas DO PCP: Dr. Michael Puga DO Status:FELIBERTO TAVAREZ Location: [place] [address] HPI - General General Date of Admission: [...] daily and OA; onmeloxicam who presents to [facility] ER complaining of Right upper and [...] expected to be less than 2 midnights. 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 Reading Location: [facility] Assessment & Plan Assessment/Plan (1) Hypertensive emergency [...] 85 minutes. Charges/Coding Visit Charges OBSV E&M: 68358 Observ/hosp same date L3 11/30/24 0634 Cosigner Signature (if applicable): CC: Dr. Tacho Davis, ; Dr. Michael Puga, ~ Signed [facility]07-31-2025 Discharge summary Author Virgil Tyler [facility] Note Date/Time November 30, 2024 1:01 am [facility] Medical Records Department [address] [place] [address] Emergency Department Summary 11/29/24 MR#: [id number] Acct: [id number] Name: MICHAEL MEIER Rep #:[id number] : 1940 84 From: Virgil Saldivar PCP: Dr. Michael Puga DO Status:AD [facility] Location: [place] [address] HPI History of Present Illness Chief Complaint: [...] similar symptoms: No PFSH PFSH Medical History USP current use of amiodarone Right carotid bruit [...] 72.4 H Lymph % (Auto) 11.5 L [place] % (Auto) 12.1 H Eos % (Auto) [...] Clarity Clear Urine pH 6.0 Ur Specific [place] 1.010 Urine Protein Negative Urine Glucose (UA) [...] IMPRESSION: No acute intracranial abnormality. Reading Location: [facility] CT scan of the brain was obtained. [...] DO [Primary Care Provider] - Print Language: Dutch Disposition Disposition: Acute Care Hospital [facility] What to do if you have Problems For any increased pain, shortness of breath, bleeding, nausea or vomiting, chestpain, or any unexpected problems, contact your Primary Care Provider. Call [facility] ([phone]) or report to the closest Emergency Room. Call 911 if necessary. 11/30/24 0101 <Electronically signed by Virgil Tyler DO> Cosigner Signature (if applicable): CC: Dr. Michael Puga DO ~ Signed [facility] Work Phone: 1(535) 866-507607-31-2025 Discharge summary [facility] Medical Records Department [address] [place] [address] Emergency Department Summary 11/29/24 MR#: [id number] Acct: [id number] Name: MICHAEL MEIER Rep #:[id number] : 1940 84 From: Virgil Saldivar PCP: Dr. Michael Puga, DO Status:AD M [facility] [id number] HPI History of Present Illness Chief Complaint: [...] similar symptoms: No PFSH PFSH Medical History USP current use of amiodarone Right carotid bruit [...] 72.4 H Lymph % (Auto) 11.5 L [place] % (Auto) 12.1 H Eos % (Auto) [...] Clarity Clear Urine pH 6.0 Ur Specific [place] 1.010 Urine Protein Negative Urine Glucose (UA) [...] IMPRESSION: No acute intracranial abnormality. Reading Location: [facility] CT scan of the brain was obtained. [...] DO [Primary Care Provider] - Print Language: Dutch Disposition Disposition: Acute Care Hospital [facility] What to do if you have Problems For any increased pain, shortness of breath, bleeding, nausea or vomiting, chestpain, or any unexpected problems, contact your Primary Care Provider. Call [facility] ([phone]) or report tothe closest Emergency Room. Call 911 if necessary. 11/30/24 0101 Cosigner Signature (if applicable): CC: Dr. Michael Puga DO ~ Signed [facility]07-30-2025 Radiology Diagnostic study note [facility] Imaging Services [address] [place] [address] Brain/Head without Contrast MR#: [id number] Acct: [id number] Name: MICHAEL MEIER Rep #: [id number] : 1940 F 84 From: Nelson Chávez MD PCP: Dr. Michael Puga DO Status: RE G ER Study:Brain/Head without Contrast Date of Exa m: 11/29/24 Exam# [id number] Ordering Dr: Virgil Tyler DO PROCEDURE: CT [...] IMPRESSION: No acute intracranial abnormality. Reading Location: [facility] CC: Dr. Virgil Tyler DO; Dr. Michael Puga DO ~ Hole Puncher Strap: Signed [facility]07-28-2025 Telephone encounter Note* Telephone Encounter - Yvonne Leiva Loli - 11/27/2024 12:10 PM EDT Prescription Refill [...] tablet by mouth daily at bedtime. Yvonne Loli Boyd Gomez November 27, 2024 12:12 PM [facility]07-28-2025 Miscellaneous Notes* Telephone Encounter - Yvonne Leiva [...] 27, 2024 12:12 PM [facility] Telephone encounter Note * Telephone Encounter - Amanda Pratt RN - 11/13/2024 8:48 AM EDT Call placed to patient and notified of below with verbalized understanding. Amanda Pratt RN [facility]07-14-2025 Miscellaneous Notes* Telephone Encounter - Amanda Pratt [...] - 11/10/2024 2:41 PM EDT Kell with [facility] calls to let provider know that patient [...] able. Amanda Pratt RN documented in [facility]25 Telephone encounter Note * Telephone Encounter - [...] Authorizing Provider: MICHAEL PUGA DO [facility]07-12-2025 Telephone encounter Note* Telephone Encounter - Sherry [...] Sherry Layne November 11, 2024 10:43 AM T [facility]07-12-2025 Miscellaneous Notes* Telephone Encounter - Sherry Layne [...] 11, 2024 10:43 AM documented in [facility]25 Telephone encounter Note * Telephone Encounter - Amanda Pratt RN - 11/10/2024 2:41 PM EDT Kell with [facility] calls to let provider know that patient [...] will respond once able. 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 November 02, 2024 9:16am Pulmonary hypertension acute Ju ly 2024 9:16am Essential (primary) hypertension chronic November 02, 2024 9:16am History of permanent cardiac pacemaker placement June 09, 2021 chronic J silvia 2024 9:16am Paroxysmal atrial fibrillation chronic November 02, 2024 9:16am [place] [employer] Work Phone: [phone] 764-231607-03-2025 Evaluation note* Diagnosis Onset Date Resolution Status Admit Date WELCH (dyspnea on exertion) acute November 02, 2024 9:16am USP current use of amiodarone acute November 02, [...] attack) December, suspected November 29, 2024 9:39pm [facility] Work Phone: 1([phone]) 897-751107-03-2025 Evaluation note* Diagnosis Onset Date Resolution Status Admit Date WELCH (dyspnea on exertion) acute November 02, 2024 9:16am 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 November 02, 2024 9:16am Pulmonary hypertension acute 2024 9:16am Essential (primary) hypertension chronic November [...] attack) December, suspected November 29, 2024 9:39pm [facility] Work Phone: 1(459) 203-640207-03-2025 Evaluation note* Diagnosis Onset Date Resolution Status Admit Date 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 November 02, [...] st 2024 4:09pm Heme positive stool acute Decus t 2024 4:09pm Hyponatremia acute December 03, 2024 4:09pm USP current use of amiodarone acute December 03, [...] attack) December, deleted December 03, 2024 4:09pm [facility] Work Phone: [phone]) 344-352707-03-2025 Evaluation note* Diagnosis Onset Date Resolution Status Admit Date Essential (primary) hypertension chronic November 02, 2024 9:16am History of permanent cardiac pacemaker placement June 09, 2021 chronic J silvia 2024 9:16am USP current use of amiodarone chronic November 02, [...] st 2024 4:09pm Heme positive stool acute Decus t 2024 4:09pm Hyponatremia acute December 03, 2024 4:09pm Normochromic normocytic anemia acute December 03, 2024 4:09pm Essential (primary) hypertension chronic December 03, 2024 4:09pm History of permanent cardiac pacemaker placement June 09, 2021 chronic A ugust 2024 4:09pm Hyperlipidemia chronic December 4:09pm Hypothyroidism chronic December 4:09pm Left atrial enlargement chronic A ugust 2024 4:09pm 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 December 03, 2024 4:09pm Moderate left ventricular hypertrophy chronic December 03, 2024 4:09pm Morbid obesity with BMI of 40.0-44.9, adult chronic December 03 4:09pm Paroxysmal atrial fibrillation chronic December 03, 2024 4:09pm Pulmonary hypertension chronic Au sulma 2024 4:09pm Tricuspid regurgitation chronic A ugust 2024 4:09pm Tremor resolved December 03 4:09pm TIA (transient ischemic attack) December, deleted December 03, 2024 4:09pm [facility] Work Phone: 1(971) 234-159207-03-2025 Evaluation note* Diagnosis Onset Date Resolution Status Admit Date Essential (primary) hypertension inactive November 02, 2024 9:16am History of permanent cardiac pacemaker placement June 09, 2021 inactive J silvia 2024 9:16am USP current use of amiodarone inactive November 02, 2024 9:16am Paroxysmal atrial fibrillation inactive November 02, 2024 9:16am Pulmonary hypertension inactive 2024 9:16am WELCH (dyspnea on exertion) deleted November 02, 2024 9:16am Hypertensive urgency resolved November 29, 2024 9:39pm Tremor resolved November 29 9:39pm Morbid obesity with BMI of 40.0-44.9, adult inactive November 29, 2024 9:39pm Paroxysmal atrial fibrillation inactive November 29, 2024 9:39pm Hypertensive emergency without congestive heart failure deleted November 29, 2024 9:39pm TIA (transient ischemic attack) December, deleted November 29, 2024 9:39pm Debility acute December 03 4:09pm Generalized weakness acute Decu st 2024 4:09pm Heme positive stool acute Decus t 2024 4:09pm Hyponatremia acute December 03, 2024 4:09pm Normochromic normocytic anemia acute December 03, 2024 4:09pm Disequilibrium resolved December 4:09pm Tremor resolved December 03 4:09pm Essential (primary) hypertension inactive December 03, 2024 4:09pm History of permanent cardiac pacemaker placement June 09, 2021 inactive A 2024 4:09pm Hyperlipidemia inactive December 4:09pm Hypothyroidism inactive December 4:09pm Left atrial enlargement inactive 2024 4:09pm 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 December 03, 2024 4:09pm Moderate left ventricular hypertrophy inactive December 03, 2024 4:09pm Morbid obesity with BMI of 40.0-44.9, adult inactive December 03 4:09pm Paroxysmal atrial fibrillation inactive December 03, 2024 4:09pm Pulmonary hypertension inactive [facility] 2024 4:09pm Tricuspid regurgitation inactive A 2024 4:09pm TIA (transient ischemic attack) December, deleted December 03, 2024 4:09pm [facility] Work Phone: 1(741) 154-235507-03-2025 Evaluation note* Diagnosis Onset Date Resolution Status Admit Date Essential (primary) hypertension inactive November 02, 2024 9:16am History of permanent cardiac pacemaker placement June 09, 2021 inactive [place] ve[place] 2024 9:16am USP current use of amiodarone inactive November 02, 2024 9:16am Paroxysmal atrial fibrillation inactive November 02, 2024 9:16am Pulmonary hypertension inactive 2024 9:16am WELCH (dyspnea on exertion) deleted November 02, 2024 9:16am Hypertensive urgency resolved November 29, 2024 9:39pm Tremor resolved November 29 9:39pm Morbid obesity with BMI of 40.0-44.9, adult inactive November 29, 2024 9:39pm Paroxysmal atrial fibrillation inactive November 29, 2024 9:39pm Hypertensive emergency without congestive heart failure deleted November 29, 2024 9:39pm TIA (transient ischemic attack) December, deleted November 29, 2024 9:39pm Debility acute December 03 4:09pm Generalized weakness acute Decu st 2024 4:09pm Heme positive stool acute Decus t 2024 4:09pm Hyponatremia acute December 03, 2024 4:09pm Normochromic normocytic anemia acute December 03, 2024 4:09pm Disequilibrium resolved December 4:09pm Tremor resolved December 03 4:09pm Essential (primary) hypertension inactive December 03, 2024 4:09pm History of permanent cardiac pacemaker placement June 09, 2021 inactive A [facility] 2024 4:09pm Hyperlipidemia inactive December 4:09pm Hypothyroidism inactive December 4:09pm Left atrial enlargement inactive [facility] 2024 4:09pm 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 December 03, 2024 4:09pm Moderate left ventricular hypertrophy inactive December 03, 2024 4:09pm Morbid obesity with BMI of 40.0-44.9, adult inactive December 03 4:09pm Paroxysmal atrial fibrillation inactive December 03, 2024 4:09pm Pulmonary hypertension inactive 2024 4:09pm Tricuspid regurgitation inactive [facility] 2024 4:09pm TIA (transient ischemic attack) December, deleted December 03, 2024 4:09pm Essential (primary) hypertension inactive December 27 1:51pm History of permanent cardiac pacemaker placement June 09, 2021 inactive A [facility] 2024 1:51pm USP current use of amiodarone inactive December 27 1:51pm Paroxysmal atrial fibrillation inactive December 27 1:51pm Pulmonary hypertension inactive [facility] 2024 1:51pm WELCH (dyspnea on exertion) deleted December 27, 2024 1:51pm [facility] Work Phone: 1(906) 681-274407-03-2025 Evaluation note* Diagnosis Onset Date Resolution Status Admit Date Essential (primary) hypertension inactive November 02, 2024 9:16am History of permanent cardiac pacemaker placement June 09, 2021 inactive [place] silvia 2024 9:16am 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 November 02, 2024 9:16am Paroxysmal atrial fibrillation inactive November 02, 2024 9:16am Pulmonary hypertension inactive 2024 9:16am WELCH (dyspnea on exertion) deleted November 02, 2024 9:16am Hypertensive urgency resolved November 29, 2024 9:39pm Tremor resolved November 29 9:39pm Morbid obesity with BMI of 40.0-44.9, adult inactive November 29, 2024 9:39pm Paroxysmal atrial fibrillation inactive November 29, 2024 9:39pm Hypertensive emergency without congestive heart failure deleted November 29, 2024 9:39pm TIA (transient ischemic attack) December, deleted November 29, 2024 9:39pm Debility acute December 03 4:09pm Generalized weakness acute Decu st 2024 4:09pm Heme positive stool acute Decus t 2024 4:09pm Hyponatremia acute December 03, 2024 4:09pm Normochromic normocytic anemia acute December 03, 2024 4:09pm Disequilibrium resolved December 4:09pm Tremor resolved December 03 4:09pm Essential (primary) hypertension inactive December 03, 2024 4:09pm History of permanent cardiac pacemaker placement June 09, 2021 inactive A ugust 2024 4:09pm Hyperlipidemia inactive December 4:09pm Hypothyroidism inactive December 4:09pm Left atrial enlargement inactive 2024 4:09pm USP current use of amiodarone inactive December 03, 2024 4:09pm Moderate left ventricular hypertrophy inactive December 03, 2024 4:09pm Morbid obesity with BMI of 40.0-44.9, adult inactive December 03 4:09pm Paroxysmal atrial fibrillation inactive December 03, 2024 4:09pm Pulmonary hypertension inactive [facility] 2024 4:09pm Tricuspid regurgitation inactive A [facility] 2024 4:09pm TIA (transient ischemic attack) December, deleted December 03, 2024 4:09pm Essential (primary) hypertension inactive December 27 1:51pm History of permanent cardiac pacemaker placement June 09, 2021 inactive A ugust 2024 1:51pm USP current use of amiodarone inactive December 27 1:51pm Paroxysmal atrial fibrillation inactive December 27 1:51pm Pulmonary hypertension inactive [facility] 2024 1:51pm WELCH (dyspnea on exertion) deleted December 27, 2024 1:51pm Acute exacerbation of CHF (congestive heart failure) chronic t 2024 4:24pm [facility] Work Phone: 1(136) 351-306907-03-2025 Evaluation note* Diagnosis Onset Date Resolution Status Admit Date Essential (primary) hypertension inactive November 02, 2024 9:16am History of permanent cardiac pacemaker placement June 09, 2021 inactive [place] ve[place] 2024 9:16am USP current use of amiodarone inactive November 02, 2024 9:16am Paroxysmal atrial fibrillation inactive November 02, 2024 9:16am Pulmonary hypertension inactive [facility] 2024 9:16am WELCH (dyspnea on exertion) deleted November 02, 2024 9:16am Hypertensive urgency resolved November 29, 2024 9:39pm Tremor resolved November 29 9:39pm Morbid obesity with BMI of 40.0-44.9, adult inactive November 29, 2024 9:39pm Paroxysmal atrial fibrillation inactive November 29, 2024 9:39pm Hypertensive emergency without congestive heart failure deleted November 29, 2024 9:39pm TIA (transient ischemic attack) December, deleted November 29, 2024 9:39pm Debility acute December 03 4:09pm Generalized weakness acute Decu 2024 4:09pm Heme positive stool acute Decus t 2024 4:09pm Hyponatremia acute December 03, 2024 4:09pm Normochromic normocytic anemia acute December 03, 2024 4:09pm Disequilibrium resolved December 4:09pm Tremor resolved December 03 4:09pm Essential (primary) hypertension inactive December 03, 2024 4:09pm History of permanent cardiac pacemaker placement June 09, 2021 inactive A [facility] 2024 4:09pm Hyperlipidemia inactive December 4:09pm Hypothyroidism inactive December 4:09pm Left atrial enlargement inactive [facility] 2024 4:09pm USP current use of amiodarone inactive December 03, 2024 4:09pm Moderate left ventricular hypertrophy inactive December 03, 2024 4:09pm Morbid obesity with BMI of 40.0-44.9, adult inactive December 03 4:09pm Paroxysmal atrial fibrillation inactive December 03, 2024 4:09pm Pulmonary hypertension inactive [facility] 2024 4:09pm Tricuspid regurgitation inactive A [facility] 2024 4:09pm TIA (transient ischemic attack) December, deleted December 03, 2024 4:09pm Essential (primary) hypertension inactive December 27 1:51pm History of permanent cardiac pacemaker placement June 09, 2021 inactive A ugust 2024 1:51pm 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 December 27 1:51pm Paroxysmal atrial fibrillation inactive December 27 1:51pm Pulmonary hypertension inactive [facility] 2024 1:51pm WELCH (dyspnea on exertion) deleted December 27, 2024 1:51pm Acute exacerbation of CHF (congestive heart failure) resolved Augus t 2024 4:24pm [facility] Work Phone: 1([phone]) [phone] Evaluation note* Diagnosis Onset Date Resolution Status Admit Date WELCH (dyspnea on exertion) acute November 02, 2024 9:16am Essential (primary) hypertension chronic November 02, 2024 9:16am History of permanent cardiac pacemaker placement June 09, 2021 chronic J silvia 2024 9:16am 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 November 02, 2024 9:16am Paroxysmal atrial fibrillation chronic November 02, 2024 9:16am Pulmonary hypertension chronic Ju ly 2024 9:16am Paroxysmal atrial fibrillation chronic November 29, 2024 9:39pm Hypertensive urgency resolved November 29, 2024 9:39pm Tremor resolved November 29 9:39pm Morbid obesity with BMI of 40.0-44.9, adult inactive November 29, 2024 9:39pm Hypertensive emergency without congestive heart failure deleted November 29, 2024 9:39pm TIA (transient ischemic attack) December, deleted November 29, 2024 9:39pm Debility acute December 03 4:09pm Generalized weakness acute Decu st 2024 4:09pm Heme positive stool acute t 2024 4:09pm Hyponatremia acute December 03, 2024 4:09pm Normochromic normocytic anemia acute December 03, 2024 4:09pm Essential (primary) hypertension chronic December 03, 2024 4:09pm History of permanent cardiac pacemaker placement June 09, 2021 chronic A ugust 2024 4:09pm 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 December 03, 2024 4:09pm Paroxysmal atrial fibrillation chronic December 03, 2024 4:09pm Pulmonary hypertension chronic [facility] 2024 4:09pm Disequilibrium resolved December 4:09pm Tremor resolved December 03 4:09pm Hyperlipidemia inactive December 4:09pm Hypothyroidism inactive December 4:09pm Left atrial enlargement inactive [facility] 2024 4:09pm Moderate left ventricular hypertrophy inactive December 03, 2024 4:09pm Morbid obesity with BMI of 40.0-44.9, adult inactive December 03 4:09pm Tricuspid regurgitation inactive A [facility] 2024 4:09pm TIA (transient ischemic attack) December, deleted December 03, 2024 4:09pm WELCH (dyspnea on exertion) acute December 27, 2024 1:51pm Essential (primary) hypertension chronic December 27 1:51pm History of permanent cardiac pacemaker placement June 09, 2021 chronic A ugust 2024 1:51pm USP current use of amiodarone chronic December 27 1:51pm Paroxysmal atrial fibrillation chronic December 27 1:51pm Pulmonary hypertension chronic Au sulma 2024 1:51pm Acute exacerbation of CHF (congestive heart failure) resolved t 2024 4:24pm Sick sinus syndrome acute Octob er 2024 1:52pm History of permanent cardiac pacemaker placement June 09, 2021 chronic O ctober 2024 1:52pm WELCH (dyspnea on exertion) acute February 05, 2025 1:53pm Fatigue acute February 05, 1:53pm Right carotid bruit acute Octob er 2024 1:53pm Essential (primary) hypertension chronic February 05 1:53pm History of permanent cardiac pacemaker placement June 09, 2021 chronic 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 [facility]07-02-2025 Miscellaneous Notes* Telephone Encounter - [...] as mentioned below. Thank you, Key Portillo APRN.COUNTER WAITER * Telephone Encounter - Key Portillo APRN.CARMELINA - 11/01/2024 9:22 AM EDT ----- Message from Sarah Merchant PT sent at 10/27/2024 6:59 PM EDT ----- Gianluca Puga, We're seeing Michael for PT (she was referred by [facility]) and we've also seen her here inthe past for ortho/mobility issues. She's been reporting increased Shortness of Breath with minimalactivity which I definitely noticed today (I encouraged her to go to ER prn but she doesn't think it's necessary). She's also reporting increased low back pain (mostly with standing & walking). She has f/u appointments with her receivable manager & reimbursement representative next month but I think she needs to see someone soon for the Shortness of Breath. I also think a spine/pain mgmt consult would be a good idea for the chronic/worsening low back pain. Thanks, Sarah Merchant, PT documented [facility] Telephone encounter Note * Telephone Encounter - Key Portillo APRN.CARMELINA - 11/01/2024 9:22 AM EDT Please see if patient is willing to make appointment due to Shortness of Breath as mentioned below. Thank you, Key Portillo APRN.COUNTER WAITER [facility]07-02-2025 Telephone encounter Note* Telephone Encounter - Key Portillo APRN.CNP - 11/01/2024 9:22 AM EDT ----- Message from Sarah Merchant PT sent at 10/27/2024 6:59 PM EDT ----- Gianluca Puga, We're seeing Michael for PT (she was referred by [facility]) and we've also seen her here inthe past for ortho/mobility issues. She's been reporting increased Shortness of Breath with minimalactivity which I definitely noticed today (I encouraged her to go to ER prn but she doesn't think it's necessary). She's also reporting increased low back pain (mostly with standing & walking). She has f/u appointments with her receivable manager & reimbursement representative next month but I think she needs to see someone soon for the Shortness of Breath. I also think a spine/pain mgmt consult would be a good idea for the chronic/worsening low back pain. Thanks, Sarah Merchant, PT [facility]07-01-2025 Radiology Diagnostic study note [facility] Imaging Services [address], [place] [address] Chest PA and Lateral MR#: [id number] Acct: [id number] Name: MICHAEL MEIER Rep #: [id number] : 1940 F 84 From: Chris Bradley MD PCP: Dr. Michael Puga DO Status: RE G CLI Study:Chest PA and Lateral Date of Exam: 10/31/24 Exam# [id number] Ordering Dr: Anabel Roberson PA PROCEDURE: CHEST [...] pulmonary process, no interval change Reading Location: [id number] CC: Dr. Michael Puga DO; NIDA Katz ~ Hole Puncher Strap: Signed [facility]06-27-2025 NoteHNO ID: [id number] Author: SARAH MERCHANT, PT Service: ? Author [...] testing/tx options for LBP SUBJECTIVE: pt reports "tired of this". c/o increased LBP this past week. takes meloxicam AND tylenol daily. reports significant limitations with walking AND mobility d/t chronic LBP, SOB AND LE weakness. says SOB has gotten worse over the past year along with increased LBP (which she relates to spinal stenosis). she asked about dry needling, back brace etc. she's never seen a site specialist, only ortho for hips. she also reports 10# weight gain over past 2 months due to steroids. has has f/u with reimbursement representative end of October (which she may try to move up) receivable manager in mid October, PCP in December. she [...] Session Stop Time : 1331 Sarah Merchant [facility]06-27-2025 History of Present illness Narrative* Sarah Merchant, [...] testing/tx options for LBP SUBJECTIVE: pt reports "tired of this". c/o increased LBP this past week. takes meloxicam & tylenol daily. reports significant limitations with walking & mobility d/t chronic LBP, SOB & LE weakness. says SOB has gotten worse over the past year along with increased LBP (which she relatesto spinal stenosis). she asked about dry needling, back brace etc. she's never seen a site specialist, only ortho for hips. she also reports 10# weight gain over past 2 months due to steroids. has has f/u with reimbursement representative end of October (which she may try to move up) receivable manager in mid October, PCP in December. she [...] : 1244 Session Stop Time : 1331 Saarh Merchant PT documented in this encounterPrem[facility]06-26-[facility]25 Telephone encounter Note * Telephone Encounter - July Marcano RN - 10/26/2024 8:39 AM EDT Pt called and is notified of providers message and instructions. Pt voices understanding, she states she will add the Tylenol. July Marcano RN [facility]06-26-2025 Miscellaneous Notes* Telephone Encounter - July Marcano [...] advise. Tameka Marin RN documented in this encounterPremier Health [facility] Valley [facility] Center06-25-2025 Telephone encounter Note * Telephone Encounter - Michael Puga DO - 10/25/2024 10:09 PM EDT No this dose can't be increased. We can consider changing the meloxicam to an alternative such as Celebrex 100 mg twice a day with food as needed. Or she can add on 500 mg of Tylenol every 6 hours for pain Michael Puga DO [facility]06-25-2025 Telephone encounter Note* Telephone Encounter [...] short term. Please advise. Tameka Marin RN [facility]06-09-2025 NoteHNO ID: [id number] Author: JOY SUN PTA Service: ? Author Type: Urogynecology Physician Type: Progress Notes Filed: 10/09/2024 13:37 Note [...] as well as balance SUBJECTIVE: Patient states "everything is just tired on me" and she had no energy to do [...] 8 UE 8 lvl 2 6 minutes LACE TEARING SUPERVISOR in constant attendence assessing current status reviewing [...] Session Stop Time : 1328 Joy Sun [facility]06-09-2025 History of Present illness Narrative* Joy Sun, LACE TEARING SUPERVISOR - 10/09/2024 1:34 PM EDT Episode Visit [...] as well as balance SUBJECTIVE: Patient states "everything is just tired on me" and she had no energy to do [...] 8 UE 8 lvl 2 6 minutes LACE TEARING SUPERVISOR in constant attendence assessing current status reviewingHEP [...] 1328 Joy Sun PTA documented in this encounterPremier Health [facility] Valley [facility] Center06-02-2025 NoteHNO ID: [id number] Author: PJ BLEDSOE PT Service: ? Author Type: Physical Therapist Type: Progress Notes Filed: 10/02/2024 15:43 Note Text: Episode Visit Count: 2 Therapist That Will Accept/Oversee The Plan Of Care: [place], C Start of Care Date: 09/28/24 Onset Date: [...] sets 9: standing at rollator b ue furnace loader slight march in place r to l to r x 5 then b heel raises x 5 x 3 sets 10: standing wt shifts b ue furnace loader at rollator wt shift r l lat [...] Session Stop Time : 1530 Pj Bledsoe [facility]06-02-2025 History of Present illness Narrative* Pj Bledsoe, [...] sets 9: standing at rollator b ue furnace loader slight march in place r to l to r x 5 then b heel raises x 5 x 3 sets 10: standing wt shifts b ue furnace loader at rollator wt shift r l lat [...] 1530 Pj Bledsoe PT documented in this encounterPremier Health [facility] Center05-29-2025 Telephone encounter Note * Telephone Encounter - Marisol Cano LPN - 09/28/2024 4:00 PM EDT Spoke with Kell gave information provided. She voices understanding. She will have pt call in for her appointment she does not know pts schedule. [facility]05-29-2025 Miscellaneous Notes* Telephone Encounter - [...] 1 month ago. Thank you, Key Portillo APRN.COUNTER WAITER * Telephone Encounter - Nadine Colon LPN - 09/28/2024 1:42 PM EDT Kell from [facility] calling to report patient tremor is [...] the office. Please advise documented in this encounterPremier Health [facility] Valley Medical Center05-29-2025 NoteHNO ID: [id number] Author: SARAH MERCHANT, PT Service: ? Author [...] increase T-score by a minimum 5 points. Morrill in home exercise program. Patient will demonstrate [...] Planned: 12 Planned Treatment Interventions: Therapeutic exercise (18197), Neuromuscular re-education (54398), Therapeutic activities (76573), Self-residential management (91130), Gait Training (41098), Patient/Family/Caregiver Education, General Conditioning PLAN FOR NEXT [...] Lives With: Self/Alone Assistance Available: Community-Based Health Nailing Machine Feeder, PRN (currently getting Nsg, has friends that [...] normal limits) 32 (more content not included)...[facility]05-29-2025 History of Present illness Narrative* Sarah [...] increase T-score by a minimum 5 points. Morrill in home exercise program. Patient will demonstrate [...] Planned: 12 Planned Treatment Interventions: Therapeutic exercise (89919), Neuromuscular re- education (31719), Therapeutic activities (69999), Self-residential management (26173), Gait Training (82350), Patient/Family/Caregiver Education, General Conditioning PLAN FOR NEXT [...] Lives With: Self/Alone Assistance Available: Community-Based Health Nailing Machine Feeder, PRN (currently getting Nsg, has friends that [...] to Stand Test : 19.89 sec (from 17" chair without UE assist. 16.36 seconds from 20" surface) Education: Education Barriers: Low activity tolerance/endurance [...] wt-shift & preventing posterior LOB: 5x from 20" mat table, 5x from 17" chair Skilled Intervention: Educated on proper/safe technique [...] 1459 Sarah Merchant PT documented in this encounterPremier Health [facility] Valley [facility] Center05-29-2025 Telephone encounter Note * Telephone Encounter - Key Portillo APRN.CNP - 09/28/2024 3:01 PM EDT Pt needs appointment to assess this. This was not mentioned in recent office visit 1 month ago. Thank you, Key Portillo APRN.COUNTER WAITER [facility]05-29-2025 Telephone encounter Note* Telephone Encounter - Nadine Colon LPN - 09/28/2024 1:42 PM EDT Kell from [facility] calling to report patient tremor is [...] is out of the office. Please advise [facility]05-12-2025 Telephone encounter Note* Telephone Encounter [...] Delisa Gomez September 11, 2024 9:22 AM [facility]05-12-2025 Miscellaneous Notes* Telephone Encounter - [...] 11, 2024 9:22 AM documented in this encounterPremier Health [facility] Valley [facility] Center05-09-2025 Telephone encounter Note * Telephone Encounter - Michael Puga DO - 09/08/2024 5:06 PM EDT Noted Michael Puga DO [facility]05-09-2025 Miscellaneous Notes* Telephone Encounter - [...] for oxygen. Pt reports she was in [facility] about a yr ago with pneumonia, [...] guidelines. Please phone Jackelin with any questions: [phone] extension 4751 documented in this encounterPremier Health [facility] Valley [facility] Center05-09-2025 Telephone encounter Note * Telephone [...] not using the oxygen. Amanda Pratt RN [facility]05-09-2025 Telephone encounter Note* Telephone Encounter - Loli Adamson RN - 09/08/2024 1:32 PM EDT Phoned pt and explained what Poornima reported needed to be done per Medicare guidelines for her to qualify for oxygen. Pt reports she was in [facility] about a yr ago with pneumonia, [...] thinks she should do. Please advise pt. [facility]05-09-2025 Telephone encounter Note* Telephone Encounter - Michael Puga DO - 09/08/2024 12:37 PM EDT Noted, is she willing to do this testing? Michael Puga DO [facility]05-09-2025 Telephone encounter Note* Telephone Encounter - Loli Adamson RN - 09/08/2024 10:41 AM EDT Jackelin- [employer]- reports since pt has dx JOSE on CPAP, per medicare guidelines, pt would have to have sleep titration study to qualify for oxygen. [facility] pt would not qualify for oxygen- with overnight pulse oximetry test per medicare guidelines. Please phone Jackelin with any questions: [phone] extension 4751 [facility]05-09-2025 Telephone encounter Note* Telephone Encounter - Jacque Machuca MA - 09/08/2024 8:52 AM EDT Faxed Jacque Machuca MA [facility]05-09-2025 Miscellaneous Notes* Telephone Encounter - [...] 09/07/2024 11:16 AM EDT Petra NOLASCO from [facility] calls and is asking status of [...] advise, Bhavna Arauz RN documented in [place] encounterTyler [place] [address]-09-2025 Telephone encounter Note * Telephone Encounter - Asia Rosales APRN.CNP - 09/08/2024 8:22 AM EDT It's in the outbox in my office. Asia Rosales APRN.CNP [facility]05-09-2025 Telephone encounter Note* Telephone Encounter - Jacque Machuca MA - 09/08/2024 8:15 AM EDT Please print script Jacque Machuca MA [facility]05-08-2025 Telephone encounter Note* Telephone Encounter - Asia Rosales APRN.CNP - 09/07/2024 1:32 PM EDT I placed the order best I know how to. Please fax per below request. Asia Rosales APRN.CNP [facility]05-08-2025 Telephone encounter Note* Telephone Encounter - Bhavna Arauz RN - 09/07/2024 11:16 AM EDT Petra NOLASCO from [facility] calls and is asking status of request. When order is placed, please fax orderto [facility]. Please place order for nighttime pulsometry test and fax to [employer]. Please review and advise, Bhavna Arauz RN [facility]05-07-2025 Telephone encounter Note* Telephone Encounter - Julianna Cano LPN - 09/06/2024 1:12 PM EDT Pt. informed and would like to get the nighttime Oximetry. [facility]05-06-2025 Telephone encounter Note* Telephone Encounter - Michael Puga DO - 09/05/2024 5:35 PM EDT Please clarify with more information What recommendation? Would need to have nighttime oximetry testing for me to order oxygen by insurance Michael Puga DO [facility]05-06-2025 Telephone encounter Note* Telephone Encounter - Bhavna Arauz RN - 09/05/2024 11:46 AM EDT Patient calls and states that palliative care nurse had just visited patient. Palliative nurse had told patient that patient would benefit to have oxygen at night. Patient state that nurse had told patient to call office about this. Please review and advise, Bhavna Arauz RN [facility]04-30-2025 Instructions* Patient Instructions* Michael Puga [...] alive, yogurt, cottage cheese Relion meter at [facility] if insurance doesn't want to cover rx. [facility] Address: [facility], [place] [address] documented in this encounterPremier Health Upper Valley Medical Center04-30-2025 NoteHNO ID: [id number] Author: MICHAEL PUGA DO Service: ? Author Type: Physician Type: Progress Notes Filed: 08/30/2024 22:10 Note Text: CC: Michael Meier is a 84 year old female who presents to the office for follow up HPI: Seen in the office 1 week ago on 08/17/24 by Kami Rosales CNP as below Paxil 20mg- tolerating well. Feels very tired, sleepy, "I don't care" type feelings. States her medication does help [...] having some symptoms of feeling LH and "off my normal" as well as occasional blurring of vision [...] FEM PROSTC AGRFT/ALGRFT Left 07/2016 [facility] CONDYLEANDPLATU MEDIALANDLAT COMPARTMENTS 11/15/2009 Knee replacement, total -Left - [facility] ARTHRP E CONDYLEANDPLATU MEDIALANDLAT COMPARTMENTS 12/30/2009 Right knee replaced COLONOSCOPY FLX DX W/COLLJ SPEC WHEN PFRMD 06/29/2017 Colonoscopy EGD 10/17/2020 EGD W/O [facility] SPEC VARICIES INJ 01/08/2022 EGD W/O [facility] SPEC VARICIES INJ 03/31/2024 [place] ESOPHAGOGASTRODUODENOSCOPY TRANSORAL [...] Rash Demerol [Meperidine* Vomiting (more content not included)...[facility]04-30-2025 History of Present illness Narrative* Michael Puga, - 08/30/2024 3:40 PM EDT CC: Michael Meier is a 84 year old female who presents to the office for follow up HPI: Seen in the office 1 week ago on 08/17/24 by Kami Rosales CNP as below Paxil 20mg- tolerating well. Feels very tired, sleepy, "I don't care" type feelings. States her medication does help [...] having some symptoms of feeling LH and "off my normal" as well as occasional blurring of vision [...] MEDIAL&LAT COMPARTMENTS 11/15/2009 Knee replacement, total -Left [facility] ARTHRP KNE CONDYLE&PLATU MEDIAL&LAT COMPARTMENTS 12/30/2009 Right knee replaced COLONOSCOPY FLX DX W/COLLJ SPEC WHEN PFRMD 06/29/2017 Colonoscopy EGD 10/17/2020 EGD W/O [facility] SPEC VARICIES INJ 01/08/2022 EGD W/O [facility] SPEC VARICIES INJ 03/31/2024 [place] ESOPHAGOGASTRODUODENOSCOPY TRANSORAL [...] Opioids - Morphine * Intolerance nausea, dizzy, "sees things" Opioids-Meperidine * nausea/vomiting Penicillin G hives Pravachol [...] dyspnea Follow up with Palliative care and Multimedia Authoring Specialist. 5. Obstructive lung disease (HCC) - ICD9: [...] dyspnea Follow up with Palliative care and Multimedia Authoring Specialist. Michael Puga DO Return if no improvement. Follow up with Michael Puga DO. To ER if develops chest pain, shortness of breath. Discussed risks, benefits, alternatives, and potential side effects of medications. Patient/Guardian expressed understanding and agreed with the plan. See patient instructions. Michael Puga DO [address] [place] [address] documented in this encounterPremier Health [facility] Center04-18-2025 Telephone encounter Note * Telephone Encounter - Asia Rosales APRN.CNP - 08/18/2024 2:37 PM EDT I saw her in the office yesterday 08/17 and these concerns were addressed. Asia Rosales APRN.CNP [facility] Work Phone: [phone] Miscellaneous Notes* Telephone Encounter - Asia Rosales APRN.CNP - 08/18/2024 2:37 PM EDT I saw her in the office yesterday 08/17 and these concerns were addressed. Asia Rosales APRN.CNP * Telephone Encounter - Loli Adamson RN - 08/16/2024 1:28 PM EDT Petra- - [facility]- reports she is seeing patient and [...] nurse phoned patient and scheduled appt with Director Patient Accounting for tomorrow to see if Director Patient Accounting can increase patient's paxil. documented in this encounterPremier Health [facility] Valley [facility] Center04-17-2025 NoteHNO ID: [id number] Author: ASIA ROSALES APRN.COUNTER WAITER Service: ? Author Type: Nurse Practitioner Type: Progress Notes Filed: 08/18/2024 08:27 Note Text: Chief Complaint Patient presents with: Medication Follow-up: Increase paxil HPI Michael Meier is a 84 year old female who presents here today for Above Complaints.. Paxil 20mg- tolerating well. Feels very tired, sleepy, "I don't care" type feelings. States her medication does help [...] 11/15/2009 Knee replacement, total -Left - [facility]RP [place] CONDYLEANDPLATU MEDIALANDLAT COMPARTMENTS 12/30/2009 Right knee replaced COLONOSCOPY FLX DX W/COLLJ SPEC WHEN PFRMD 06/29/2017 Colonoscopy EGD 10/17/2020 EGD W/O [facility] SPEC VARICIES INJ 01/08/2022 EGD W/O [facility] SPEC VARICIES INJ 03/31/2024 [place] ESOPHAGOGASTRODUODENOSCOPY TRANSORAL [...] Opioids - Morphine * Intolerance nausea, dizzy, "sees things" Opioids-Meperidine * nausea/vomiting Penicillin G hives Pravachol [...] capsule by mouth once (more content not included)...[facility]04-17-2025 History of Present illness Narrative* Asia Rosales APRN.COUNTER WAITER - 08/17/2024 3:22 PM EDT Chief Complaint Patient presents with: Medication Follow-up: Increase paxil HPI Michael Meier is a 84 year old female who presents here today for Above Complaints.. Paxil 20mg- tolerating well. Feels very tired, sleepy, "I don't care" type feelings. States her medication does help [...] 11/15/2009 Knee replacement, total -Left - [facility] ARTHRP KNE CONDYLE&PLATU MEDIAL&LAT COMPARTMENTS 12/30/2009 Right knee replaced COLONOSCOPY FLX DX W/COLLJ SPEC WHEN PFRMD 06/29/2017 Colonoscopy EGD 10/17/2020 EGD W/O [facility] SPEC VARICIES INJ 01/08/2022 EGD W/O [facility] SPEC VARICIES INJ 03/31/2024 [place] ESOPHAGOGASTRODUODENOSCOPY TRANSORAL DIAGNOSTIC 11/29/2000 EGD ESOPHAGOGASTRODUODENOSCOPY TRANSORAL [...] Opioids - Morphine * Intolerance nausea, dizzy, "sees things" Opioids-Meperidine * nausea/vomiting Penicillin G hives Pravachol [...] 08/18/2024 Time: 8:26 AM documented in this encounterPremier Health Upper Valley [facility] Center04-16-2025 Telephone encounter Note * Telephone Encounter - Loli Adamson RN - 08/16/2024 1:28 PM EDT Petra- - [facility]- reports she is seeing patient and [...] palliative care with pt at the appt. [place] plans to f/u with patient next week. This nurse phoned patient and scheduled appt with Director Patient Accounting for tomorrow to see if Director Patient Accounting can increase patient's paxil. [facility]03-07-2025 Telephone encounter Note* Telephone Encounter [...] to do anything. Protocols used: Medication Question [id number] [facility]03-07-2025 Miscellaneous Notes* Telephone Encounter - [...] to do anything. Protocols used: Medication Question [id number] documented in this encounterPremier Health Upper Valley [facility] Center03-03-2025 NoteHNO ID: [id number] Author: PJ BLEDSOE PT Service: ? Author Type: Physical Therapist Type: Progress Notes Filed: 07/03/2024 08:48 Note Text: 07/03/2024 [facility] PHYSICAL THERAPY DISCONTINUANCE [...] did not attend further PT. Pj Bledsoe [facility]02-26-2025 Telephone encounter Note* Telephone Encounter - Renea Wallace MA - 06/28/2024 11:38 AM EST Printed telephone encounter with cover sheet & faxed to Dr. Hickey [phone]. Advised on cover sheet to respond with reimbursement representative's recommendations. Will wait for fax back. Renea Wallace MA [facility]02-26-2025 Miscellaneous Notes* Telephone Encounter - Renea Wallace MA - 06/28/2024 11:38 AM EST Printed telephone encounter with cover sheet & faxed to Dr. Hickey [phone]. Advised on cover sheet to respond with reimbursement representative's recommendations. Will wait for fax back. Renea Wallace MA * Telephone Encounter - Michael Puga DO - 06/28/2024 10:37 AM EST Please call her reimbursement representative office at [facility] and see if they are concerned [...] reports provider was going to check with [facility] about taking it since it can cause SOB. Please review and advise, Amanda Pratt RN documented in this encounterPremier Health [facility] Center02-26-2025 Telephone encounter Note * Telephone Encounter - Michael Puga DO - 06/28/2024 10:37 AM EST Please call her reimbursement representative office at [facility] and see if they are concerned with her shortness of breath and respirator symptoms potentially being secondary to SE from Amiodarone and if any options to change this anti arrhythmic on their end? Michael Puga DO [facility]02-25-2025 NoteHNO ID: [id number] Author: MICHAEL PUGA DO Service: ? Author [...] and albuterol. She has been seen by Network Security Officer as well as Dr. Hickey/Multimedia Authoring Specialist at [facility] for follow up after discharge home. [...] COMPARTMENTS 11/15/2009 Knee replacement, total -Left - [facility] ARTHRP KNE CONDYLEANDPLATU MEDIALANDLAT COMPARTMENTS 12/30/2009 Right knee replaced COLONOSCOPY FLX DX W/COLLJ SPEC WHEN PFRMD 06/29/2017 Colonoscopy EGD 10/17/2020 EGD W/O [facility] SPEC VARICIES INJ 01/08/2022 EGD W/O [facility] SPEC VARICIES INJ 03/31/2024 [place] ESOPHAGOGASTRODUODENOSCOPY TRANSORAL DIAGNOSTIC 11/29/2000 EGD ESOPHAGOGASTRODUODENOSCOPY TRANSORAL [...] Opioids - Morphine * Intolerance nausea, dizzy, "sees things" Opioids-Meperidine * nausea/vomiting Penicillin G hives Pravachol [Pravasta* Other: See Comments Leg cramps Sulfa (Sulfonamide * hives Vicodin [Hydrocodon* Intolerance dizzy,nausea,vomiting,headache Zithromax [Azithrom* Intolerance Social (more content not included)...[facility]02-25-2025 History of Present illness Narrative* Michael Puga, [...] and albuterol. She has been seen by Network Security Officer as well as Dr. Hickey/Multimedia Authoring Specialist at [facility] for follow up after discharge home. [...] 11/15/2009 Knee replacement, total -Left - [facility] ARTHRP KNE CONDYLE&PLATU MEDIAL&LAT COMPARTMENTS 12/30/2009 Right knee replaced COLONOSCOPY FLX DX W/COLLJ SPEC WHEN PFRMD 06/29/2017 Colonoscopy EGD 10/17/2020 EGD W/O [facility] SPEC VARICIES INJ 01/08/2022 EGD W/O [facility] SPEC VARICIES INJ 03/31/2024 [place] ESOPHAGOGASTRODUODENOSCOPY TRANSORAL [...] Opioids - Morphine * Intolerance nausea, dizzy, "sees things" Opioids-Meperidine * nausea/vomiting Penicillin G hives Pravachol [...] I27.20 See above F/u with Pulm and Multimedia Authoring Specialist Multifactorial, recently diagnosed - NEBULIZER ACCESSORIES KIT - NEBULIZER 4. WELCH (dyspnea on exertion) - ICD9: 786.09, ICD10: R06.09 See above F/u with Pulm and Multimedia Authoring Specialist Multifactorial, CHF and obstructive lung disease have [...] plan. See patient instructions. Michael Puga DO [address] [place] [address] documented in this encounterPremier Health [facility] Center02-24-2025 Telephone encounter Note * Telephone [...] reports provider was going to check with [facility] about taking it since it can cause SOB. Please review and advise, Amanda Pratt RN [facility]02-04-2025 Telephone encounter Note* Telephone Encounter - Jacque Machuca MA - 06/06/2024 4:35 PM EST Pt informed, verbalized understanding Jacque Machuca MA [facility]02-04-2025 Miscellaneous Notes* Telephone Encounter - [...] Pt calls for lab results done at [facility] on 06/02/24. Results are scanned in the lab chart.. Constance Ervin LPN documented in this encounterPremier Health [facility] Valley [facility] Center02-04-2025 Telephone encounter Note * Telephone Encounter - Michael Puga DO - 06/06/2024 4:28 PM EST Please inform patient that her BUN is slightly high, creatinine is normal. She needs to increase her fluid/water intake. Also her AST and ALT liver enzyme labs are slightly high- this CMP lab needs to be rechecked in 1 month Michael Puga DO [facility]02-04-2025 Telephone encounter Note* Telephone Encounter - Constance Ervin LPN - 06/06/2024 11:52 AM EST Pt calls for lab results done at [facility] on 06/02/24. Results are scanned in the lab chart.. Constance Ervin LPN [facility]01-29-2025 Telephone encounter Note* Telephone Encounter - Key Portillo APRN.CARMELINA - 05/31/2024 10:44 AM EST Noted. Thank you, Key Portillo APRN.COUNTER WAITER [facility]01-29-2025 Miscellaneous Notes* Telephone Encounter - Key Portillo APRN.CARMELINA - 05/31/2024 10:44 AM EST Noted. Thank you, Key Portillo APRN.COUNTER WAITER * Telephone Encounter - Amanda Pratt RN - 05/31/2024 10:07 AM EST Qing with [facility] calls in regards to below. CMP was not completed. Re-faxed ordered to [facility] lab and Qing will add a nurse visit for this week to collect specimen as soon as possible. Amanda Pratt RN * Telephone Encounter - Key Portillo APRN.COUNTER WAITER - 05/31/2024 7:36 AM EST I don't see CMP results either. Can we call [facility] and confirm this was drawn. If not, have her get itdone. Thank you, Key Portillo APRN.COUNTER WAITER * Telephone Encounter - Loli Adamson RN - 05/30/2024 8:26 AM EST Pt reports she had a CMP done at [facility] on 05/25/24 to check her kidneys and glucose. We received a BNP and CBC from [facility] under labs. Do not see a CMP. Patient asking Key to review and advise. documented in this encounterPremier Health [facility] Center01-29-2025 Telephone encounter Note * Telephone Encounter - Amanda Pratt RN - 05/31/2024 10:07 AM EST Qing with [facility] calls in regards to below. CMP was not completed. Re-faxed ordered to [facility] lab and Qing will add a nurse visit for this week to collect specimen as soon as possible. Amanda Pratt RN [facility]01-29-2025 Telephone encounter Note* Telephone Encounter - Key Portillo APRN.COUNTER WAITER - 05/31/2024 7:36 AM EST I don't see CMP results either. Can we call [facility] and confirm this was drawn. If not, have her get itdone. Thank you, Key Portillo APRN.COUNTER WAITER [facility]01-28-2025 Telephone encounter Note* Telephone Encounter - Loli Adamson RN - 05/30/2024 8:26 AM EST Pt reports she had a CMP done at [facility] on 05/25/24 to check her kidneys and glucose. We received a BNP and CBC from [facility] under labs. Do not see a CMP. Patient asking Key to review and advise. [facility]01-23-20[facility] Telephone encounter Note* Telephone Encounter - Marisol Cano LPN - 05/25/2024 10:15 AM EST Left detailed message on confidential voice mail. Also left out number for any questions. [facility]01-23-2025 Miscellaneous Notes* Telephone Encounter - [...] 05/11. I see from discharge instructions from [facility] that she was taking HCTZ at [...] 9:25 AM EST Bhavna MAKI CM with [facility] called in and reports Pt had been taken off her Hydrochlorothiazide perCardiology for a while, but the last time she was in the hospital she was put back on 12.5 mg. She states the Pt is going to need a script called in if she is to be taking them to [facility] in [place].I told her I didn't see the HCTZ [...] Please call and advise. documented in this encounterPremier Health [facility] Center01-23-2025 Telephone encounter Note * Telephone Encounter - Key Portillo APRN.CNP - 05/25/2024 10:00 AM EST I would like patient to take medication and then recheck BP. BP was WNL at appointment on 05/11. I see from discharge instructions from [facility] that she was taking HCTZ at [...] once daily. Authorizing Provider: KEY PORTILLO APRN.CNP [facility]01-23-2025 Telephone encounter Note* Telephone Encounter - July Marcano RN - 05/25/2024 9:25 AM EST Bhavna MAKI CM with [facility] called in and reports Pt had been taken off her Hydrochlorothiazide perCardiology for a while, but the last time she was in the hospital she was put back on 12.5 mg. She states the Pt is going to need a script called in if she is to be taking them to [facility].I told her I didn't see the HCTZ [...] labs this morning. Please call and advise. [facility]01-17-2025 Telephone encounter Note* Telephone Encounter - Julianna Cano LPN - 05/19/2024 2:43 PM EST Pt. informed. [facility]01-17-2025 Miscellaneous Notes* Telephone Encounter - [...] a good sign. Thank you, Key Portillo APRN.COUNTER WAITER * Telephone Encounter - Chloe Castro LPN - 05/19/2024 12:21 PM EST Pt calling for results of lab work she had done in her home yesterday, Results are I Epic. Please advise pt. Chloe Castro LPN documented in this encounterPremier Health [facility] Center01-17-2025 Telephone encounter Note * Telephone [...] a good sign. Thank you, Key Portillo APRN.COUNTER WAITER [facility]01-17-2025 Telephone encounter Note* Telephone Encounter - Chloe Castro LPN - 05/19/2024 12:21 PM EST Pt calling for results of lab work she had done in her home yesterday, Results are I Epic. Please advise pt. Chloe Castro LPN [facility]01-16-2025 Telephone encounter Note* Telephone Encounter - Key Portillo APRN.CARMELINA - 05/18/2024 10:50 AM EST Perfect! Thank you. Key Portillo APRN.COUNTER WAITER [facility]01-16-2025 Miscellaneous Notes* Telephone Encounter - Key Portillo APRN.CNP - 05/18/2024 10:50 AM EST Perfect! Thank you. Key Portillo APRN.COUNTER WAITER * Telephone Encounter - Tameka Marin RN - 05/18/2024 10:43 AM EST Bhavna with [facility] calling in and states she was able to draw all labs needed today. Tameka Marin RN * Telephone Encounter - Key Portillo APRN.COUNTER WAITER - 05/18/2024 10:42 AM EST Most important is CMP to have drawn if able. Agree with below. Pt needs to discontinue lasix all together. This was ordered by [facility] after recent admission for new onset CHF exacerbation. Initially ordered for 40 mg daily, I decreased to 20 mg daily after kidney function was so poor and told pt to repeat labs in 5 days with plan to discontinue all together if swelling and weight gain remained stable with decreased. Thank you, Key Portillo APRN.COUNTER WAITER * Telephone Encounter - July Marcano RN - 05/18/2024 9:59 AM EST Bhavna RN [facility] called in and reports Pt isn't [...] Verbalizes understanding. Pt is scheduled to see [facility] on 06/01/24. Per Alondra Portillo's [...] if she can. Pt will go to [place] and get it drawn in the morning. [...] LPN - 05/17/2024 9:46 AM EST Phoned [facility] pharmacy\\ with clarification on current meds. Spironolactone 25 mg daily was prescribed by the [facility] also hydralazine 25 mg was prescribed by Kristal Watkins [facility]. Lasix 20 mg was just prescribed by Key Portillo, then Lasix 40 mg was prescribed by [facility] May 02. Left message with Bhavna [facility] about above information. Please review and advise further. Marcie Rodriguez LPN * Telephone Encounter - Michael Puga DO - 05/17/2024 9:02 AM EST Please clarify with pharmacy and patient her current diuretic/BLOOD PRESSURE medications that she is picking up and taking * Telephone Encounter - Amanda Pratt RN - 05/16/2024 10:19 AM EST Bhavna with [facility] calls to report duplicate therapy between lasix and spironolactone and lasix and hydralazine. Bhavna is asking if provider wants all medications continued. Hydralazine and Spironolactone are on current medication list but prescription not sent to pharmacy. Please review and advise. Bhavna is requesting a call back at [phone]. Amanda Pratt RN documented in this encounterPremier Health [facility] Center01-16-2025 Telephone encounter Note * Telephone Encounter - Tameka Marin RN - 05/18/2024 10:43 AM EST Bhavna with [facility] calling in and states she was able to draw all labs needed today. Tameka Marin RN [facility]01-16-2025 Telephone encounter Note* Telephone Encounter - Key Portillo, MIRIAN.COUNTER WAITER - 05/18/2024 10:42 AM EST Most important is CMP to have drawn if able. Agree with below. Pt needs to discontinue lasix all together. This was ordered by [facility] after recent admission for new onset CHF exacerbation. Initially ordered for 40 mg daily, I decreased to 20 mg daily after kidney function was so poor and told pt to repeat labs in 5 days with plan to discontinue all together if swelling and weight gain remained stable with decreased. Thank you, Key Portillo APRN.COUNTER WAITER [facility]01-16-2025 Telephone encounter Note* Telephone Encounter - July Marcano RN - 05/18/2024 9:59 AM EST Bhavna MAKI [facility] called in and reports Pt [...] what labs she was able to drawn. [facility]01-16-2025 Telephone encounter Note* Telephone Encounter - Sultana Catalan RN - 05/18/2024 9:50 AM EST Pt would like a call back as soon as possible after her labs are resulted. [facility]01-15-2025 Telephone encounter Note* Telephone Encounter - Michael Puga DO - 05/17/2024 8:46 PM EST Order placed for CMP Michael Puga DO [facility]01-15-2025 Telephone encounter Note* Telephone Encounter [...] 5-7 days. Pended order for repeat CMP. [facility]01-15-2025 Telephone encounter Note* Telephone Encounter - Sultana Catalan RN - 05/17/2024 6:39 PM EST Pt returned the call and appt made with Dr. Puga for 520 pm on 06/21/24. Pt reminded to stop Lasix and make sure to get labs drawn in AM. [facility]01-15-2025 Telephone encounter Note* Telephone Encounter - Sultana Catalan RN - 05/17/2024 6:20 PM EST LM for pt to return the call as pt needs appt set up for around 06/22/24 which would be 6 wk f/u. Reinforce to pt to stop Lasix and get labs drawn in the AM. [facility]01-15-2025 Telephone encounter Note* Telephone Encounter - Michael Puga DO - 05/17/2024 6:11 PM EST Agree with need for lab work Agree with need for follow up in Primary care but would recommend that this visit is after the visit in Cardiology Michael Puga DO [facility]01-15-2025 Telephone encounter Note* Telephone Encounter - Sultana Catlaan RN - 05/17/2024 5:49 PM EST Pt [...] Verbalizes understanding. Pt is scheduled to see [facility] on 06/01/24. Per Alondra Portillo's [...] if she can. Pt will go to [place] and get it drawn in the morning. [facility]01-15-2025 Telephone encounter Note* Telephone Encounter - Michael Puga DO - 05/17/2024 12:31 PM EST Please clarify what her edema of her legs is looking like? This was assessed by Key and not myself. I Don't want her to be on the spironolactone and the lasix. Recommend stopping the lasix if her edema is improved Michael Puga DO [facility]01-15-2025 Telephone encounter Note* Telephone Encounter - Marcie Rodriguez LPN - 05/17/2024 9:46 AM EST Phoned [facility] pharmacy\\ with clarification on current meds. Spironolactone 25 mg daily was prescribed by the [facility] also hydralazine 25 mg was prescribed by Kristal Watkins [facility]. Lasix 20 mg was just prescribed by Key Portillo, then Lasix 40 mg was prescribed by [facility] May 02. Left message with Bhavna [facility] about above information. Please review and advise further. Marcie Rodriguez LPN [facility]01-15-2025 Telephone encounter Note* Telephone Encounter - Michael Puga DO - 05/17/2024 9:02 AM EST Please clarify with pharmacy and patient her current diuretic/BLOOD PRESSURE medications that she is picking up and taking [facility]01-14-2025 Telephone encounter Note* Telephone Encounter - Amanda Pratt RN - 05/16/2024 10:19 AM EST Bhavna with [facility] calls to report duplicate therapy between lasix and spironolactone and lasix and hydralazine. Bhavna is asking if provider wants all medications continued. Hydralazine and Spironolactone are on current medication list but prescription not sent to pharmacy. Please review and advise. Bhavna is requesting a call back at [phone]. Amanda Pratt RN [facility]01-10-2025 Telephone encounter Note* Telephone Encounter - Key Portillo APRN.COUNTER WAITER - 05/12/2024 2:22 PM EST Agree with below. We are repeating BNP lab work in 5-7 days as well to check for this. Thank you, Key Portillo APRN.COUNTER WAITER [facility]01-10-2025 Miscellaneous Notes* Telephone Encounter - Key Portillo APRN.CARMELINA - 05/12/2024 2:22 PM EST Agree with below. We are repeating BNP lab work in 5-7 days as well to check for this. Thank you, Key Portillo APRN.COUNTER WAITER * Telephone Encounter - Sultana Catalan RN [...] e. Pt verbalizes understanding. documented in this encounterPremier Health [facility]01-10-2025 Telephone encounter Note * Telephone [...] at that vernell e. Pt verbalizes understanding. [facility]01-10-2025 Telephone encounter Note* Telephone Encounter - Jacque Machuca MA - 05/12/2024 1:04 PM EST Pt informed Jacque Machuca MA [facility]01-10-2025 Miscellaneous Notes* Telephone Encounter - [...] yesterday in appointment but nothing was at [facility] when she went. * Telephone Encounter [...] with decreasing lasix. Thank you, Key Portillo APRN.COUNTER WAITER documented in this encounterPremier Health [facility] Center01-10-2025 Telephone encounter Note * Telephone [...] needed (anxiety attack). Authorizing Provider: KEY PORTILLO APRN.COUNTER WAITER PDMP website checked and validated. All prescriptions have been APPROPRIATELY filled. No suspiciousactivity was identified. 05/12/2024 by Key Portillo APRN.COUNTER WAITER [facility]01-10-2025 Telephone encounter Note* Telephone Encounter - Marisol Cano LPN - 05/12/2024 12:43 PM EST Spoke with pt gave information provided. Pt voices understanding. She states she spoke with you about some ativan yesterday in appointment but nothing was at [facility] when she went. [facility]01-10-2025 Telephone encounter Note* Telephone Encounter [...] with decreasing lasix. Thank you, Key Portillo APRN.COUNTER WAITER [facility]01-09-2025 History of Present illness Narrative* Key Portillo APRN.COUNTER WAITER - 05/11/2024 1:00 PM EST Chief Complaint Patient presents with: Transition Of Care: Was i wfor chf flae was discharged on 05/02/24 HPI Michael Meier is a 84 year old female who presents here today for Above Complaints. Michael is an established patient of Dr. Edd DO. Concerns today... Hospital discharge -- [facility] hospital admission from 04/30-05/02 d/t hypoxia [...] CONDYLE&PLATU MEDIAL&LAT COMPARTMENTS 11/15/2009 Knee replacement, total -[facility] ARTHRP KNE CONDYLE&PLATU MEDIAL&LAT COMPARTMENTS 12/30/2009 Right knee replaced COLONOSCOPY FLX DX W/COLLJ SPEC WHEN PFRMD 06/29/2017 Colonoscopy EGD 10/17/2020 EGD W/O [facility] SPEC VARICIES INJ 01/08/2022 EGD W/O [facility] SPEC VARICIES INJ 03/31/2024 Lito ESOPHAGOGASTRODUODENOSCOPY TRANSORAL [...] Opioids - Morphine * Intolerance nausea, dizzy, "sees things" Opioids-Meperidine * nausea/vomiting Penicillin G hives Pravachol [...] Sensation grossly intact.. Health Maintenance List Covid-19 Vaccine(2023- season) due on 01/02/2024 Advance Directive Discussion [...] agreeable to treatment plan. Key Abrams APRN.CARMELINA [address] [place] [address] documented in this encounterPremier Health [facility] Center01-09-2025 NoteHNO ID: [id number] Author: KEY PORTILLO APRN.CNP Service: ? Author [...] Edd DO. Concerns today... Hospital discharge -- [facility] hospital admission from 04/30-05/02 d/t hypoxia [...] FEM PROSTC AGRFT/ALGRFT Left 07/2016 ARTHRP [facility] CONDYLEANDPLATU MEDIALANDLAT COMPARTMENTS 11/15/2009 Knee replacement, total -Left - [facility]RP [facility] CONDYLEANDPLATU MEDIALANDLAT COMPARTMENTS 12/30/2009 Right knee replaced COLONOSCOPY FLX DX W/COLLJ SPEC WHEN PFRMD 06/29/2017 Colonoscopy EGD 10/17/2020 EGD W/O [facility] SPEC VARICIES INJ 01/08/2022 EGD W/O [facility] SPEC VARICIES INJ 03/31/2024 [facility] ESOPHAGOGASTRODUODENOSCOPY TRANSORAL [...] Opioids - Morphine * Intolerance nausea, dizzy, "sees things" Opioids-Meperidine * nausea/vomiting Penicillin G hives Pravachol [...] Shake well before use (more content not included)...[facility]01-06-2025 Telephone encounter Note* Telephone Encounter - Key Portillo APRN.COUNTER WAITER - 05/08/2024 10:47 AM EST Noted. Will address then. Thank you, Key Portillo APRN.COUNTER WAITER [facility]01-06-2025 Miscellaneous Notes* Telephone Encounter - Key Portillo APRN.CARMELINA - 05/08/2024 10:47 AM EST Noted. Will address then. Thank you, Key Portillo APRN.COUNTER WAITER * Telephone Encounter - Michael Puga DO - 05/08/2024 10:36 AM EST Will have her discuss with Key at office visit Michael Puga DO * Telephone Encounter - Amanda Pratt RN - 05/08/2024 8:59 AM EST Marifer with [facility] calls to let provider know that patient is having increasing pain with RLS especially at night. Marifer asking if provider would order medication. Patient not currently taking any medication for RLS. Patient previously scheduled for hospital follow up on 05/11/2024 with Key Portillo. Amanda Pratt, GLYNN documented in this encounterPremier Health [facility]01-06-2025 Telephone encounter Note * Telephone Encounter - Michael Puga DO - 05/08/2024 10:36 AM EST Will have her discuss with Key at office visit Michael Puga DO [facility]01-06-2025 Telephone encounter Note* Telephone Encounter - Amanda Pratt RN - 05/08/2024 8:59 AM EST Marifer with [facility] calls to let provider know that patient is having increasing pain with RLS especially at night. Marifer asking if provider would order medication. Patient not currently taking any medication for RLS. Patient previously scheduled for hospital follow up on 05/11/2024 with Key Portillo. Amanda Pratt RN [facility]01-03-2025 Telephone encounter Note* Telephone Encounter - Michael Puga DO - 05/05/2024 4:40 PM EST Noted Michael Puga DO [facility]01-03-2025 Miscellaneous Notes* Telephone Encounter - Michael Puga DO - 05/05/2024 4:40 PM EST Noted Michael Puga DO * Telephone Encounter - July Marcano RN - 05/05/2024 3:58 PM EST Sergio PT with [facility] called in and reports they will be seeing Pt twice a week for 3 weeks for functional mobility training. documented in this encounterPremier Health [facility]01-03-2025 Telephone encounter Note * Telephone Encounter - July Marcano RN - 05/05/2024 3:58 PM EST Sergio PT with [facility] called in and reports they will be seeing Pt twice a week for 3 weeks for functional mobility training. [facility]01-03-2025 Telephone encounter Note* Telephone Encounter - Jacque Machuca MA - 05/05/2024 8:54 AM EST Suha informed Jacque Machuca MA [facility]01-03-2025 Miscellaneous Notes* Telephone Encounter - Jacque Machuca MA - 05/05/2024 8:54 AM EST Suha informed Jacque Machuca MA * Telephone Encounter - Michael Puga DO - 05/05/2024 8:36 AM EST Ok with orders Michael Puga DO * Telephone Encounter - Aly Tolentino LPN - 05/04/2024 2:24 PM EST Suha from [facility] calling with plan of care. Only need to call her back if pcp not agreeable with orders. They will be seeing pt 1x wk for 1 wk then 2xs wk for 3 wks then 1x wk for 1 wk for disease and medication education. Aly Tolentino LPN documented in this encounterPremier Health [facility] Center01-03-2025 Telephone encounter Note * Telephone Encounter - Michael Puga DO - 05/05/2024 8:36 AM EST Ok with orders Michael Puga DO [facility]01-02-2025 NoteHNO ID: [id number] Author: Loli ADAMSON RN Service: ? Author Type: Registered Nurse Type: Progress Notes Filed: 05/04/2024 14:41 Note Text: TRANSITION CARE MANAGEMENT (TCM) INITIAL CONTACT Coil Finisher Outreach Provider Action/FYI: Pt reports [facility] is going to be visiting pt for PT OT SN Initial contact with patient post discharge, spoke to patient. Patient identified by name and . TRANSITION CARE MANAGEMENT INITIAL OUTREACH DOCUMENTATION: 05/04/2024 Date of Outreach: Outreach Attempt 1: Contact Made Date of Discharge 05/02/2024 SUMMARY: -Pt discharged from [facility] on 05-02-24. -Admitted for: CHF Do [...] Yes [facility] History of Present illness Narrative* Loli Adamson RN - 05/04/2024 2:31 PM EST TRANSITION CARE MANAGEMENT (TCM) INITIAL CONTACT Coil Finisher Outreach Provider Action/FYI: Pt reports [facility] is going to be visiting pt for PT OT SN Initial contact with patient post discharge, spoke to patient. Patient identified by name and . TRANSITION CARE MANAGEMENT INITIAL OUTREACH DOCUMENTATION: 05/04/2024 Date of Outreach: Outreach Attempt 1: Contact Made Date of Discharge 05/02/2024 SUMMARY: -Pt discharged from [facility] on 05-02-24. -Admitted for: CHF Do [...] recent hospitalization: Care Everywhere documented in this encounterPremier Health [facility]01-02-2025 Telephone encounter Note * Telephone Encounter - Aly Tolentino LPN - 05/04/2024 2:24 PM EST Suha from [facility] calling with plan of care. Only need to call her back if pcp not agreeable with orders. They will be seeing pt 1x wk for 1 wk then 2xs wk for 3 wks then 1x wk for 1 wk for disease and medication education. Aly Tolentino LPN [facility]01-02-2025 Telephone encounter Note* Telephone Encounter - Milvia Howrad - 05/04/2024 11:09 AM EST Requesting qty. [...] 08/30/2024 Please advise. Thank you. Milvia Howard. [facility]01-02-2025 Miscellaneous Notes* Telephone Encounter - [...] Thank you. Milvia Howard. documented in this encounterPremier Health [facility] Center01-02-2025 NotePatient Outreach (FAMPWS) MICHAEL MEIER ([id number]) 1940 F Date Time Provider Department 05/04/24 MICHAEL PUGAPWS During your visit today, we recorded the following information about you: Loli Adamson, RN 05/04/2024 2:41 PM Signed TRANSITION CARE MANAGEMENT (TCM) INITIAL CONTACT Coil Finisher Outreach Provider Action/FYI: Pt reports [facility] is going to be visiting pt for PT OT SN Initial contact with patient post discharge, spoke to patient. Patient identified by name and . TRANSITION CARE MANAGEMENT INITIAL OUTREACH DOCUMENTATION: 05/04/2024 Date of Outreach: Outreach Attempt 1: Contact Made Date of Discharge 05/02/2024 SUMMARY: -Pt discharged from [facility] on 05-02-24. -Admitted for: CHF Do [...] 03/17/2001 5 - Intolerance Comments: nausea, dizzy, "sees things" OPIOIDS-MEPERIDINE AND RELATED 02/17/2001 Comments: nausea/vomiting PENICILLIN G 02/17/2001 Comments: hives PRAVACHOL (PRAVASTATIN SODIUM) 03/09/2016 14 - Other: See Comments Comments: Leg cramps SULFA (SULFONAMIDE ANTIBIOTICS) 03/17/2001 Comments: hives VICODIN (HYDROCODONE-ACETAMINOPHE*01/08/2005 5 - Intolerance Comments: dizzy,nausea,vomiting,headache ZITHROMAX (AZITHROMYCIN) 05/20/2017 5 - Intolerance Date Reviewed: 04/10/2024 Reviewed by: Sharon Jarrett APRN.COUNTER WAITER - Fully Assessed Reason for Visit: Transition [...] 01/20/2007 03/11/2015 SOLAR LENGINES///DYSCHR (more content not included)...[facility] 05-02-2024 [facility]12-30-2024 Telephone encounter Note* Telephone Encounter - Julianna Cano LPN - 05/01/2024 4:41 PM EST Manny SWANN informed message left on VM. [facility]12-30-2024 Miscellaneous Notes* Telephone Encounter - Julianna Moreno LPN - 05/01/2024 4:41 PM EST Elberta informed message left on VM. * Telephone Encounter - Nunu Gonzalez PA-C - 05/01/2024 4:03 PM EST Verbal order okay for PCP to follow for HH. Nunu Gonzalez PA-C * Telephone Encounter - Constance Ervin LPN - 05/01/2024 2:19 PM EST Larissa with [facility] calls to report pt is currently in the hospital with heart failure exacerbation.Pt will most likely be discharged 05/03/24. Pt has orders for PT, OT, and Longterm. Larissa is requesting VO that pcp will follow pt while in HH. Call Larissa with VO from pcp. Constance Ervin LPN documented in this encounterPremier Health Upper Valley Medical Center12-30-2024 Telephone encounter Note * Telephone Encounter - Nunu Gonzalez PA-C - 05/01/2024 4:03 PM EST Verbal order okay for PCP to follow for HH. Nunu Gonzalez PA-C [facility]12-30-2024 Telephone encounter Note* Telephone Encounter - Constance Ervin LPN - 05/01/2024 2:19 PM EST Larissa with [facility] calls to report pt is currently in the hospital with heart failure exacerbation.Pt will most likely be discharged 05/03/24. Pt has orders for PT, OT, and Longterm. Larissa is requesting VO that pcp will follow pt while in HH. Call Larissa with VO from pcp. 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 Aly Tolentino LPN [facility]12-23-2024 Miscellaneous Notes* Telephone Encounter - [...] Portillo. Aly Tolentino LPN documented in this encounterPremier Health Upper Valley [facility] Center12-19-2024 NoteHNO ID: [id number] Author: SARAH MERCHANT PT Service: ? Author [...] L2x12' seat 8 2: shuttle leg press [id number]', SL 7ridjmY67n, 9pxnpyH3u - increased thigh pain 3: *standing back [...] Session Stop Time : 1335 Sarah Merchant [facility]12-19-2024 History of Present illness Narrative* Sarah Merchant, [...] L2x12' seat 8 2: shuttle leg press 7mkeiyp2', SL 5isomrJ13w, 3gyvpyO8e - increased thigh pain 3: *standing back [...] 1335 Sarah Merchant PT documented in this encounterPremier Health Upper Valley Medical Center12-17-2024 NoteHNO ID: [id number] Author: SARAH MERCHANT, PT Service: ? Author [...] for Episode of Care: created on 11/15/23 [place] in home exercise program. Patient will demonstrate [...] reducing the risk of falls. Patient Goals: "I don't know why I'm here". I guess maybe to strengthen my legs Planned Interventions, Frequency, and Duration: 2x/week (1-2x/wk), Patient to be seen for Therapeutic exercise (88496), Neuromuscular re-education (23810), Therapeutic activities (67541), Self-residential management (16829), Gait Training (58075), Patient/Family/Caregiver Education, General Conditioning PLAN FOR NEXT [...] with verbal a (more content not included)...[facility]12-17-2024 History of Present illness Narrative* Sarah [...] for Episode of Care: created on 11/15/23 [place] in home exercise program. Patient will demonstrate [...] reducing the risk of falls. Patient Goals: "I don't know why I'm here". I guess maybe to strengthen my legs Planned Interventions, Frequency, and Duration: 2x/week (1-2x/wk), Patient to be seen for Therapeutic exercise (45490), Neuromuscular re-education (58895), Therapeutic activities (96801), Self-residential management (79505), Gait Training (22430), Patient/Family/Caregiver Education, General Conditioning PLAN FOR NEXT [...] 1420 Sarah Merchant PT documented in this encounterPremier Health [facility] Valley [facility] Center12-09-2024 History of Present illness Narrative* Sharon Jarrett APRN.COUNTER WAITER - 04/10/2024 4:00 PM EST FOLLOW UP VISIT - ENDOSCOPY Michael Meier 1940 [id number] REFERRING PHYSICIAN: No referring provider defined for [...] as needed for worsening/no improvement. Sharon Jarrett APRN.COUNTER WAITER documented in this encounterPremier Health Upper Valley Medical Center12-09-2024 NoteHNO ID: [id number] Author: SHARON JARRETT APRN.[facility] Service: ? Author Type: Nurse Practitioner Type: Progress Notes Filed: 04/10/2024 16:04 Note Text: FOLLOW UP VISIT - ENDOSCOPY Michael Meier 1940 [id number] REFERRING PHYSICIAN: No referring provider defined for [...] as needed for worsening/no improvement. Sharon Jarrett APRN.[facility]11-29-2024 History and physical note* Raymundo De León MD - 03/31/2024 11:15 AM EST HISTORY AND PHYSICAL Michael Meier : 1940 REFERRING PHYSICIAN: Michael Puga [address] [facility] [address] CHIEF COMPLAINT: Patient presents with: Consult: EGD [...] was 01/[address] De León at [facility] Sedation:Midazolam 4 mg IV, Fentanyl 100 [...] CONDYLE&PLATU MEDIAL&LAT COMPARTMENTS 11/15/2009 Knee replacement, total -[facility] ARTHRP KNE CONDYLE&PLATU MEDIAL&LAT COMPARTMENTS 12/30/2009 Right knee replaced COLONOSCOPY FLX DX W/COLLJ SPEC WHEN PFRMD 06/29/2017 Colonoscopy EGD 10/17/2020 EGD W/O [facility] SPEC VARICIES INJ 01/08/2022 ESOPHAGOGASTRODUODENOSCOPY TRANSORAL DIAGNOSTIC [...] C (97.5 F), height 165.1 cm (5' 5"), weight 105 kg (231 lb 6.4 oz), [...] and edited and updated as necessary. Sharon John, CENTRIFUGE 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 UPDATED HISTORY AND PHYSICAL EXAMINATION SERVICE DATE: 03/31/2024 SERVICE TIME: 10:46 AM SENSITIVE EXAMINATION CONSENT: The sensitive examination was discussed with the Patient or Patient's Authorized Nutritional Chemist. Asapplicable, any other physician, advance practice provider, medical student, or other health professional student that will be observing or involved in the sensitive examination for educational or training purposes was discussed with the Patient or Authorized Nutritional Chemist. The Patient or Authorized Nutritional Chemist has agreed to proceed with the sensitive [...] be found in the attached. SIGNATURE: Raymundo D eLeón III, MD PATIENT NAME: Michael Meier DATE: March 31, 2024 TIME: 10:46 AM [facility]11-29-2024 History and physical note* Raymundo De León MD - 03/31/2024 11:15 AM EST HISTORY AND PHYSICAL Michael Meier : 1940 REFERRING PHYSICIAN: Michael Puga [address] [facility] [address] CHIEF COMPLAINT: Patient presents with: Consult: EGD [...] was 01/[address] De León at [facility] Sedation:Midazolam 4 mg IV, Fentanyl 100 [...] COMPARTMENTS 11/15/2009 Knee replacement, total -Left - [facility] ARTHRP KNE CONDYLE&PLATU MEDIAL&LAT COMPARTMENTS 12/30/2009 Right knee replaced COLONOSCOPY FLX DX W/COLLJ SPEC WHEN PFRMD 06/29/2017 Colonoscopy EGD 10/17/2020 EGD W/O [facility] SPEC VARICIES INJ 01/08/2022 ESOPHAGOGASTRODUODENOSCOPY TRANSORAL DIAGNOSTIC [...] C (97.5 F), height 165.1 cm (5' 5"), weight 105 kg (231 lb 6.4 oz), [...] and updated as necessary. Sharon Jarrett APRN.CARMELINA UPDATED HISTORY AND PHYSICAL EXAMINATION SERVICE DATE: 03/31/2024 SERVICE TIME: 10:46 AM SENSITIVE EXAMINATION CONSENT: The sensitive examination was discussed with the Patient or Patient's Authorized Nutritional Chemist. Asapplicable, any other physician, advance practice provider, medical student, or other health professional student that will be observing or involved in the sensitive examination for educational or training purposes was discussed with the Patient or Authorized Nutritional Chemist. The Patient or Authorized Nutritional Chemist has agreed to proceed with the sensitive [...] 2024 TIME: 10:46 AM documented in this encounterPremier Health Upper Valley Medical Center11-25-2024 Instructions* Patient Instructions* Mary Foster APRN.CARMELINA - 03/27/2024 2:22 PM EST Images from the original note were not included. [facility] PATIENT PREOPERATIVE INSTRUCTIONS Raymundo De León MD has scheduled you for your procedure at this surgery center: [facility]: [phone] -- [address] [facility] [address]. Please read below carefully for your personalized [...] office. If you are currently using a jmmo-uoe-qkmj injectable or oral medication for diabetes or [...] Procedures: - YOU MUST HAVE A RESPONSIBLE HOTEL VALET ATTENDANT TAKE YOU HOME. A SENIOR ACCOUNTING MANAGER OR STEM ROLLER OR CRUSHER OPERATOR CANNOT BE MADE A RESPONSIBLE HOTEL VALET ATTENDANT. - We recommend that a responsible person [...] Advance Directive, please fax a copy to [phone] or email to for it to be [...] day. Mary Foster APRN.CNP documented in this encounterPremier Health Upper Valley Medical Center11-25-2024 History and physical note * Mary Fosetr APRN.CNP - 03/27/2024 2:20 PM EST Images [...] Assessment: c/w statin 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 Assessment: s/p 10/2021 ICD placement, [...] Assessment: following cardiology, only documentation found in [facility] states 0-29% bilaterally from 2010 Situational mixed [...] large neck Non-male patient STOP-Bang Score: 2 [id number] Score: Age: >=75 Sex: female CHF history: No Hypertension history: Yes Stroke/TIA/thromboembolism history: Yes Vascular disease history: No Diabetes history: No [id number] Score: 6 ARISCAT Score: Age: >80 Preoperative [...] female who is scheduled for colonoscopy at [facility] of Dr. Raymundo De León for consultation. My final recommendation will be communicated backto the requesting physician by way of shared medical record or letter. Subjective The patient has the following: COVID-19 Immunization Status Overdue - Covid-19 Vaccine ( season) Overdue since 01/02/2024 10/14/2023 Postponed until 10/13/2024 by Marisol Cano LPN (Declined at this time) 04/05/2023 Imm Admin: COVID-19 vaccine, age 12+ yr ([facility]) 06/04/2022 Postponed until 06/04/2023 by [...] was 01/[address] De León at [facility] Sedation:Midazolam 4 mg IV, Fentanyl 100 [...] CAD, CHF, congenital heart defect, DVT/PE, recent MA, open heart surgery and valve surgery. GI: Positive for: GERD (on rx) Negative for: abdominal pain, dysphagia, hepatitis, irritable bowel syndrome, inflammatory bowel disease, liver disease, nausea, vomiting and ETOH >2 drinks/day. : No history of dysuria, frequency or incontinence, stones or chronic kidney disease. No difficulty urinating, nocturia > 1 time per night or hematuria. WOOD MOLDER: Negative for abnormal vaginal bleeding, abnormal vaginal [...] COMPARTMENTS 11/15/2009 Knee replacement, total -Left - [facility] ARTHRP KNE CONDYLE&PLATU MEDIAL&LAT COMPARTMENTS 12/30/2009 Right knee replaced COLONOSCOPY FLX DX W/COLLJ SPEC WHEN PFRMD 06/29/2017 Colonoscopy EGD 10/17/2020 EGD W/O [facility] SPEC VARICIES INJ 01/08/2022 ESOPHAGOGASTRODUODENOSCOPY TRANSORAL DIAGNOSTIC [...] Opioids - Morphine * Intolerance nausea, dizzy, "sees things" Opioids-Meperidine * nausea/vomiting Penicillin G hives Pravachol [...] (Src) 97.5 (Temporal) Resp 16 Ht 5' 5" (1.65m) Wt 230 lb (104.3kg) SpO2 94% [...] 8760 hour(s)). Recent Results (from the past 29012 hour(s)) ECHO Collection Time: 06/08/22 1:56 PM [...] 27, 2024 TIME: 2:20 PM PAGER/CONTACT #: [facility]11-25-2024 History and physical note* Mary Foster APRN.CNP - 03/27/2024 2:20 PM EST Images from the original note were not included. [facility] HISTORY [...] Assessment: c/w statin 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 Assessment: s/p 10/2021 ICD placement, [...] large neck Non-male patient STOP-Bang Score: 2 [id number] Score: Age: >=75 Sex: female CHF history: No Hypertension history: Yes Stroke/TIA/thromboembolism history: Yes Vascular disease history: No Diabetes history: No [id number] Score: 6 ARISCAT Score: Age: >80 Preoperative [...] female who is scheduled for colonoscopy at [facility] of Dr. Raymundo De León for consultation. My final recommendation will be communicated backto the requesting physician by way of shared medical record or letter. Subjective The patient has the following: COVID-19 Immunization Status Overdue - Covid-19 Vaccine () Overdue since 01/02/2024 10/14/2023 Postponed until 10/13/2024 by Marisol Cano LPN (Declined at this time) 04/05/2023 Imm Admin: COVID-19 vaccine, age 12+ yr ([facility]) 06/04/2022 Postponed until 06/04/2023 by [...] was 01/[address] De León at [facility] Sedation:Midazolam 4 mg IV, Fentanyl 100 [...] CAD, CHF, congenital heart defect, DVT/PE, recent MA, open heart surgery and valve surgery. GI: Positive for: GERD (on rx) Negative for: abdominal pain, dysphagia, hepatitis, irritable bowel syndrome, inflammatory bowel disease, liver disease, nausea, vomiting and ETOH >2 drinks/day. : No history of dysuria, frequency or incontinence, stones or chronic kidney disease. No difficulty urinating, nocturia > 1 time per night or hematuria. WOOD MOLDER: Negative for abnormal vaginal bleeding, abnormal vaginal [...] MEDIAL&LAT COMPARTMENTS 11/15/2009 Knee replacement, total -Left [facility] ARTHRP KNE CONDYLE&PLATU MEDIAL&LAT COMPARTMENTS 12/30/2009 Right knee replaced COLONOSCOPY FLX DX W/COLLJ SPEC WHEN PFRMD 06/29/2017 Colonoscopy EGD 10/17/2020 EGD W/O [facility] SPEC VARICIES INJ 01/08/2022 ESOPHAGOGASTRODUODENOSCOPY TRANSORAL DIAGNOSTIC [...] Opioids - Morphine * Intolerance nausea, dizzy, "sees things" Opioids-Meperidine * nausea/vomiting Penicillin G hives Pravachol [...] (Src) 97.5 (Temporal) Resp 16 Ht 5' 5" (1.65m) Wt 230 lb (104.3kg) SpO2 94% [...] 8760 hour(s)). Recent Results (from the past 79348 hour(s)) ECHO Collection Time: 06/08/22 1:56 PM [...] 2:20 PM PAGER/CONTACT #: documented in this encounterPremier Health Upper Valley Medical Center11-21-2024 NoteHNO ID: [id number] Author: SARAH MERCHANT PT Service: ? Author [...] to Stand Test : 14.81 sec (from 17" chair without UE assist) Timed Up and [...] deficits 2: discussed progress/lack of, goals/expectations for manager science Intervention: Patient was provided supervision, independence during [...] 1239 Session Stop Time : 1341 [facility] History of Present illness Narrative* [...] to Stand Test : 14.81 sec (from 17" chair without UE assist) Timed Up and [...] deficits 2: discussed progress/lack of, goals/expectations for manager science Intervention: Patient was provided supervision, independence during [...] 1341 Sarah Merchant PT documented in this encounterPremier Health Upper Valley Medical Center11-18-2024 NoteHNO ID: [id number] Author: SARAH MERCHANT PT Service: ? Author [...] on 11/15/23 through 01/14/24, extended thru 04/17/24 [place] in home exercise program. Patient will demonstrate [...] reducing the risk of falls. Patient Goals: "I don't know why I'm here". I guess maybe to strengthen my legs Planned Interventions, Frequency, and Duration: 2x/week, Patient to be seen for Therapeutic exercise (80585), Neuromuscular re-education (73558), Therapeutic activities (10800), Self-residential management (03925), Gait Training (18193), Patient/Family/Caregiver Education, General Conditioning PLAN FOR NEXT [...] L3x11' seat 8 2: shuttle leg press 0othnnJh5', SL 4bandsR/L 20xea (increased difficulty L vs [...] mat table wi (more content not included)...[facility]11-18-2024 History of Present illness Narrative* Sarah [...] on 11/15/23 through 01/14/24, extended thru 04/17/24 [place] in home exercise program. Patient will demonstrate [...] reducing the risk of falls. Patient Goals: "I don't know why I'm here". I guess maybe to strengthen my legs Planned Interventions, Frequency, and Duration: 2x/week, Patient to be seen for Therapeutic exercise (92181), Neuromuscular re-education (69551), Therapeutic activities (61896), Self-residential management (83300), Gait Training (83950), Patient/Family/Caregiver Education, General Conditioning PLAN FOR NEXT [...] L3x11' seat 8 2: shuttle leg press 9eswncVm0', SL 4bandsR/L 20xea (increased difficulty L vs [...] objective for details, discussed progress/deficits, plans/options for manager science Intervention: Patient was educated in proper exercise [...] Neuromuscular Re-Education: 1: standing wt-shifts ant/post with TEMPER MILL ROLLER (tendency for posterior LOB) 2: static stance [...] 1502 Sarah Merchant PT documented in this encounterPremier Health Upper Valley Medical Center11-14-2024 NoteHNO ID: [id number] Author: SARAH MERCHANT PT Service: ? Author [...] wt-shifted R/L 10xea 6: shuttle leg press 8wjpduRq4', SL 5bandsR/L 20x (increased difficulty R vs L) 7: shuttle calf raises 3lrjblY63t 8: supine hip ABd with orange TB [...] Session Stop Time : 1329 Sarah Merchant [facility]11-14-2024 History of Present illness Narrative* Sarah Merchant, [...] wt-shifted R/L 10xea 6: shuttle leg press 0csckzWy0', SL 5bandsR/L 20x (increased difficulty R vs L) 7: shuttle calf raises 9fheaiU89v 8: supine hip ABd with orange TB [...] 1329 Sarah Merchant PT documented in this encounterPremier Health Upper Valley Medical Center11-12-2024 NoteHNO ID: [id number] Author: JOY SUN PTA Service: ? Author Type: Urogynecology Physician Type: Progress Notes Filed: 03/14/2024 10:47 Note [...] any pain prior to session however her "legs are tired this morning" Pain: Pain Pain Level: 0 Post Treatment Pain Post Treatment Pain Level: No Change OBJECTIVE MEASURES WITH LEVEL OF FUNCTION: TREATMENT: Therapeutic Exercise: 1: Nustep seat 8 lvl 2 10 minutes LACE TEARING SUPERVISOR in constant attendence monitoring technique and reviewing HEP 2: shuttle leg press 5lhtkyGm8', SL 4bands 20x 3: shuttle calf raises [...] Session Stop Time : 1045 Joy Sun [facility]11[facility] History of Present illness Narrative* Joy Sun [facility] - 03/14/2024 10:46 AM EST Episode [...] any pain prior to session however her "legs are tired this morning" Pain: Pain Pain Level: 0 Post Treatment Pain Post Treatment Pain Level: No Change OBJECTIVE MEASURES WITH LEVEL OF FUNCTION: TREATMENT: Therapeutic Exercise: 1: Nustep seat 8 lvl 2 10 minutes LACE TEARING SUPERVISOR in constant attendence monitoring technique and reviewing HEP 2: shuttle leg press 4qcpprWo3', SL 4bands 20x 3: shuttle calf raises [...] 1045 Joy Sun PTA documented in this encounterPremier Health [facility] Valley [facility] Center11-11-2024 Telephone encounter Note * Telephone Encounter - Joshua Mcdowell - 03/13/2024 2:43 PM EST 03-31-2024 EGD Elizabeth Mcdowell [facility]11-11-2024 Miscellaneous Notes* Telephone Encounter - Joshua Mcdowell - 03/13/2024 2:43 PM EST 03-31-2024 EGD Elizabeth Mcdowell documented in this encounterPremier Health Upper Valley Medical Center11-11-2024 History of Present illness Narrative* Sharon Jarrett APRN.CARMELINA - 03/13/2024 2:30 PM EST HISTORY AND PHYSICAL Michael Deras Alexandruyuko : 1940 REFERRING PHYSICIAN: Michael Puga [address] [facility] [address] CHIEF COMPLAINT: Patient presents with: Consult: EGD [...] was 01/[address] De León at [facility] Sedation:Midazolam 4 mg IV, Fentanyl 100 [...] COMPARTMENTS 11/15/2009 Knee replacement, total -Left - [facility] ARTHRP KNE CONDYLE&PLATU MEDIAL&LAT COMPARTMENTS 12/30/2009 Right knee replaced COLONOSCOPY FLX DX W/COLLJ SPEC WHEN PFRMD 06/29/2017 Colonoscopy EGD 10/17/2020 Dr.Lito EGD W/O [facility] SPEC VARICIES INJ 01/08/2022 [...] C (97.5 F), height 165.1 cm (5' 5"), weight 105 kg (231 lb 6.4 oz), [...] necessary. Sharon Jarrett APRN.CARMELINA documented in this encounterPremier Health Upper Valley Medical Center11-11-2024 NoteHNO ID: [id number] Author: SHARON JARRETT APRN.CARMELINA Service: ? Author Type: Nurse Practitioner Type: Progress Notes Filed: 03/13/2024 14:47 Note Text: HISTORY AND PHYSICAL Michael Meier : 1940 REFERRING PHYSICIAN: Michael Puga [address] [facility] [address] CHIEF COMPLAINT: Patient presents with: Consult: EGD [...] was 01/[address] De León at [facility] Sedation:Midazolam 4 mg IV, Fentanyl 100 [...] COMPARTMENTS 11/15/2009 Knee replacement, total -Left - [facility] ARTHRP KATIE MOSS (more content not included)...[facility] 03-09-2024 Telephone encounter Note* Telephone Encounter - Sultana Catalan RN - 03/09/2024 3:13 PM EST Called pt and notified. [facility]11-07-2024 Miscellaneous Notes* Telephone Encounter - Sultana Catalan RN - 03/09/2024 3:13 PM EST Called pt and notified. * Telephone Encounter - Michael Puga DO - 03/08/2024 9:35 PM EST Please inform patient Michael Shah DO Edd * Telephone Encounter - Mary Lopez LPN - 03/08/2024 10:01 AM EST Patient does not meet Medicare Guidelines to have the Wheelchair covered by insurance. States that patient needs to require a wheelchair for most of her daily needs. According to [facility] note they received it does not appear that she does. Please advise. documented in this encounterPremier Health [facility] Center11-06-2024 Telephone encounter Note * Telephone Encounter - Michael Puga DO - 03/08/2024 9:35 PM EST Please inform patient Michael Shah DO Edd [facility]11-06-2024 Telephone encounter Note* Telephone Encounter - Mary Lopez LPN - 03/08/2024 10:01 AM EST Patient does not meet Medicare Guidelines to have the Wheelchair covered by insurance. States that patient needs to require a wheelchair for most of her daily needs. According to OV note they received it does not appear that she does. Please advise. [facility]10-31-2024 NoteHNO ID: [id number] Author: SARAH MERCHANT, PT Service: ? Author [...] L2x15' seat 9 2: shuttle leg press 8llknvIg3', SL 4bandsL 20x, 6vczxzT59n 3: shuttle calf raises 6bandsB 10x 4: [...] 1248 Session Stop Time : 1334 [facility] History of Present illness Narrative* [...] L2x15' seat 9 2: shuttle leg press 8rdgmvOp1', SL 4bandsL 20x, 6cwxvoM30x 3: shuttle calf raises 6bandsB 10x 4: [...] 1334 Sarah Merchant PT documented in this encounterPremier Health [facility] Center10-31-2024 Telephone encounter Note * Telephone Encounter - Bhavna Arauz RN - 03/02/2024 1:47 PM EDT Patient calls and notified of below. Voices understanding. Bhavna Arauz RN [facility]10-31-2024 Miscellaneous Notes* Telephone Encounter - Bhavna Arauz RN - 03/02/2024 1:47 PM EDT Patient calls and notified of below. Voices understanding. Bhavna Arauz RN * Telephone Encounter - Jacque Machuca MA - 03/02/2024 1:28 PM EDT Faxed to in [place]. Left message to return call. Please notify patient. Jacque Machuca MA * Telephone Encounter - Michael Puga DO - 03/01/2024 10:50 PM EDT Fax my office note from today and [facility] andthen notify her Michael Puga DO documented in this encounterPremier Health [facility] Center10-31-2024 Telephone encounter Note * Telephone Encounter - Jacque Machuca MA - 03/02/2024 1:28 PM EDT Faxed to in [place]. Left message to return call. Please notify patient. Jacque Machuca MA [place] [address]-30-2024 Telephone encounter Note* Telephone Encounter - Michael Puga DO - 03/01/2024 10:50 PM EDT Fax my office note from today and standard [facility] to [facility] listed andthen notify her Michael Shah DO Edd [facility]10-30-2024 History of Present illness Narrative* Michael Puga DO - 03/01/2024 10:32 PM EDT CC: [...] and chest congestion and feeling fatigued and "worn out." She admits that prior to these infections starting, she hadn't been taking any of her vitamins or supplements at all. No fevers or chills. No vomiting or diarrhea. Had been taking some tylenol and mucinex only Hypothyroidism, hasn't been taking her levothyroxine medication but willing to restart this. She states "I didn't think it was helping me at all so I stopped it." Currently Hypothyroidism, she has restarted the levothyroxine, does help fatigue symptoms. TSH was stable and improved at 1.6 with recent lab check at [employer] office in Jan at [facility], she is using her Bipap [...] feels generalized lower leg and thigh weakness "like I could fall." Otherwise she does use her cane. Chronic dyspnea, has been fully evaluated by [employer] whom doesn't feel this is due to [...] MEDIAL&LAT COMPARTMENTS 11/15/2009 Knee replacement, total -Left [facility] ARTHRP KNE CONDYLE&PLATU MEDIAL&LAT COMPARTMENTS 12/30/2009 Right knee replaced COLONOSCOPY FLX DX W/COLLJ SPEC WHEN PFRMD 06/29/2017 Colonoscopy EGD 10/17/2020 EGD W/O [facility] SPEC VARICIES INJ 01/08/2022 ESOPHAGOGASTRODUODENOSCOPY TRANSORAL DIAGNOSTIC [...] Opioids - Morphine * Intolerance nausea, dizzy, "sees things" Opioids-Meperidine * nausea/vomiting Penicillin G hives Pravachol [...] plan. See patient instructions. Michael Puga DO [address] [place] [address] documented in this encounterPremier Health Upper Valley Medical Center10-17-2024 NoteHNO ID: [id number] Author: SARAH MERCHANT PT Service: ? Author [...] on 11/15/23 through 01/14/24, extended thru 04/17/24 [place] in home exercise program. Patient will demonstrate [...] reducing the risk of falls. Patient Goals: "I don't know why I'm here". I guess maybe to strengthen my legs Planned Interventions, Frequency, and Duration: 1x/week, Patient to be seen for Therapeutic exercise (84397), Neuromuscular re-education (66601), Therapeutic activities (03053), Self-residential management (67665), Gait Training (22735), Patient/Family/Caregiver Education, General Conditioning PLAN FOR NEXT [...] to Stand Test : 13.24 sec (from 17" chair without UE assist) Timed Up and Go (sec): 13.95 sec TREATMENT: Therapeutic Exercise: 1: Nu-step L4x5', L3x5' 2: bridging 20x 3: ASLR 2.5#R/L 15xea 4: s/l clamshell 2.5#L 20x 5: s/l hip ABd 20xR 6: shuttle leg press 1bgqziKa6' (30 reps), SL 5bandsR/L 10xea 7: shuttle calf raises 5bandsB 15x 8: B calf stretch on slant board x1' 9: recheck - see objective for details, discussed progress AND deficits, plans/options for manager science Intervention: Patient was educated in proper exercise technique and purpose for exercises. Skilled judgment was used in selection of appropriate interventions. Correct performance of therapeutic exercises was facilitated with verbal and visual cuing. Educated patient on rationale for performing exercises in rega (more content not included)...[facility]10-17-2024 History of Present illness Narrative* Sarah [...] CARE UPDATE: Assessment: Michael Deras Alexandruabner demonstrates improvements in rising from a [...] on 11/15/23 through 01/14/24, extended thru 04/17/24 [place] in home exercise program. Patient will demonstrate [...] reducing the risk of falls. Patient Goals: "I don't know why I'm here". I guess maybe to strengthen my legs Planned Interventions, Frequency, and Duration: 1x/week, Patient to be seen for Therapeutic exercise (81817), Neuromuscular re-education (85154), Therapeutic activities (02666), Self-residential management (79903), Gait Training (29867), Patient/Family/Caregiver Education, General Conditioning PLAN FOR NEXT [...] to Stand Test : 13.24 sec (from 17" chair without UE assist) Timed Up and Go (sec): 13.95 sec TREATMENT: Therapeutic Exercise: 1: Nu-step L4x5', L3x5' 2: bridging 20x 3: ASLR 2.5#R/L 15xea 4: s/l clamshell 2.5#L 20x 5: s/l hip ABd 20xR 6: shuttle leg press 8kqbyjHg2' (30 reps), SL 5bandsR/L 10xea 7: shuttle calf raises 5bandsB 15x 8: B calf stretch on slant board x1' 9: recheck - see objective for details, discussed progress & deficits, plans/options for manager science Intervention: Patient was educated in proper exercise [...] 1640 Sarah Merchant PT documented in this encounterPremier Health [facility] Center10-14-2024 NoteHNO ID: [id number] Author: WILFRED MCCLELLAN PTA Service: ? Author Type: Urogynecology Physician Type: Progress Notes Filed: 02/14/2024 16:35 Note [...] Stop Time : 1404 Wilfred Mcclellan [facility]AN[facility]10-14-[facility] History of Present illness Narrative* Wilfred [...] hip extension and hip flexion vs manual opbtetxntb86 x each 6: long sitting right /left [...] 1404 Wilfred Mcclellan PTA documented in this encounterPremier Health [facility] Valley [facility] Center10-10-2024 NoteHNO ID: [id number] Author: SARAH MERCHANT PT Service: ? Author [...] L3x10' seat 8 2: shuttle leg press 3xxtgfAk1', 1sayyzG34s, SL 4bands R/L 20xea 3: shuttle calf raises 0cxvpyR34z 4: B calf stretch on slant board [...] Session Stop Time : 1334 Sarah Merchant [facility]10-10-2024 History of Present illness Narrative* Sarah Merchant, [...] L3x10' seat 8 2: shuttle leg press 3gnkzySo6', 3pplvhP46n, SL 4bands R/L 20xea 3: shuttle calf raises 7mwgjdE22y 4: B calf stretch on slant board [...] 1334 Sarah Merchant PT documented in this encounterPremier Health [facility] Valley [facility] Center10-07-2024 NoteHNO ID: [id number] Author: SARAH MERCHANT PT Service: ? Author [...] L3x10' seat 8 2: shuttle leg press 3rurcbPo3', SL 4bands R/L 20xea 3: shuttle calf raises 0rrfrrI46x 4: ASLR 2#L/R 20xea 5: supine hip [...] 1358 Session Stop Time : 1457 Sarah [facility]10-07-2024 History of Present illness Narrative* Sarah [...] L3x10' seat 8 2: shuttle leg press 3wxyuvIh5', SL 4bands R/L 20xea 3: shuttle calf raises 9fmlxoK47k 4: ASLR 2#L/R 20xea 5: supine hip [...] 1457 Sarah Merchant PT documented in this encounterPremier Health [facility] Valley [facility] Center09-30-2024 History of Present illness Narrative* Sarah Merchant, PT - 01/31/2024 3:19 PM EDT Episode Visit Count: 8 Therapist That Will Accept/Oversee The Plan Of Care: Marilee Merchant Start of Care Date: 11/15/23 Onset Date: 10/22/23 Plan of Care Certification Date: 01/18/24 Next Certification Due Date: 04/17/24 [facility]AB[facility]TS [facility]ERAP[facility] PHYSICAL THERAPY TREATMENT NOTE ASSESSMENT: Michael J Hardeep tolerated the session with decreased endurance. She [...] at ankles 15x 6: shuttle leg press 2zcqssMd1', SL 6 kynvsR53x, 5canymW8w, 9gofseS72o 7: shuttle calf raises 1pvujrL89p 8: Nu-step L3x10' seat 8 Skilled Intervention: [...] 1512 Sarah Merchant PT documented in this encounterPremier Health [facility] Center09-25-2024 History of Present illness Narrative* [...] patient reports less fatigue today also reports reimbursement representative increased her potassium , patient reports increased [...] 1600 Wilfred Mcclellan PTA documented in this encounterPremier Health Upper Valley Medical Center09-17-2024 History of Present illness Narrative* [...] on 11/15/23 through 01/14/24, extended thru 04/17/24 [place] in home exercise program. Patient will demonstrate [...] reducing the risk of falls. Patient Goals: "I don't know why I'm here". I guess maybe to strengthen my legs Planned Interventions, Frequency, and Duration: 2x/week, 12 weeks Patient to be seen for Therapeutic exercise (94840), Neuromuscular re-education (42495), Therapeutic activities (73417), Self-residential management (36682), Gait Training (14863), Patient/Family/Caregiver Education, General Conditioning PLAN FOR NEXT VISIT: continue to progress LE strength, balance, gait & endurance SUBJECTIVE: pt reports continued balance deficits. fell at home on Wednesday, squfeliberto had to come help get her up (after she alerted her lifeline device) but she denies injury, refused transport to hospital. pt reports ~ 4 falls in the past year, says she can't get up herself if she falls. she c/o general weakness & SOB with activity. has f/u with reimbursement representative this month & PCP next month. sayvalerie [...] fatigue & SOB. advised f/u with PCP, reimbursement representative, receivable manager prn Skilled Intervention: Patient was educated in [...] 1336 Session Stop Time : 1430 Sarah Merchant, PT documented in this encounterPremier Health [facility] Center09-10-2024 Telephone encounter Note * Telephone Encounter - Julianna Cano LPN - 01/11/2024 10:23 AM EDT Order faxed as below. [facility]09-10-2024 Miscellaneous Notes* Telephone Encounter - [...] Flores. Carie Lora RN documented in this encounterPremier Health [facility] Valley [facility] Center09-10-2024 Telephone encounter Note * Telephone Encounter - Nunu Gonzalez PA-C - 01/11/2024 9:41 AM EDT Rx ordered, please fax. Nunu Gonzalez PA-C [facility]09-09-2024 Telephone encounter Note* Telephone Encounter - Carie Lora RN - 01/10/2024 2:39 PM EDT Patient calling with request for script for standard wheelchair for weakness and gait instability due to back problems. If agree, please fax script to Kevin Flores. Carie Lora RN [facility]08-12-2024 History of Present illness Narrative* [...] 4: bridging 10x2 5: shuttle leg press 2rndopEq9', SL 5bandsL/R 15xea 6: shuttle calf raises [...] 1632 Sarah Merchant PT documented in this encounterPremier Health [facility] Valley Medical Center08-06-2024 History of Present illness Narrative* Wilfred Mcclellan, LACE TEARING SUPERVISOR - 12/07/2023 5:46 PM EDT Episode Visit [...] Mcclellan PTA - 12/07/2023 5:18 PM EDT Program_ID:[id number] Access Code: [email or web address] URL: [email or web address] Date: 12-07-2023 Prepared By: Pat Perusek Program Notes Exercises - Seated Hip Abduction - 1-2 x daily - 5 x weekly - 2-3 sets - 10 reps documented in this encounterPremier Health Upper Valley Medical Center07-31-2024 Instructions* Patient Instructions* Michael Puga DO - 12/01/2023 2:00 PM EDT Make sure you are taking: Vitamin C 500-100 mg a day Zinc 15-25 mg a day Vitamin D3 at least 1000 international unit(s) a day Vitamin B12 at least 500-1000 mcg a day documented in this encounterPremier Health [facility] Center07-31-2024 History of Present illness Narrative* Michael Puga [...] and chest congestion and feeling fatigued and "worn out." She admits that prior to these infections starting, she hadn't been taking any of her vitamins or supplements at all. No fevers or chills. No vomiting or diarrhea. Had been taking some tylenol and mucinex only Hypothyroidism, hasn't been taking her levothyroxine medication but willing to restart this. She states "I didn't think it was helping me at all so I stopped it." PAST MEDICAL HISTORY No date: A-fib ([facility]) No date: Allergic rhinitis, cause unspecified No date: Arrhythmia No date: Arthritis No date: Greater trochanteric bursitis of left hip 2003: Melanoma of skin, site unspecified Comment: back No date: Osteoarthritis of left hip No date: Other and unspecified hyperlipidemia No date: Situational mixed anxiety and depressive disorder No date: Sleep apnea No date: Stroke ([facility]) No date: Unspecified essential hypertension No date: Unspecified gastritis and gastroduodenitis PAST SURGICAL HISTORY No date: ABDOMINAL SURGERY HX No date: APPENDECTOMY HX 12/09/2003: ARTHRP ACETBLR/PROX FEM PROSTC AGRFT/ALGRFT Comment: right hip, redone, 07/2004: ARTHRP ACETBLR/PROX FEM PROSTC AGRFT/ALGRFT; Left 11/15/2009: ARTHRP KNE CONDYLE&PLATU MEDIAL&LAT COMPARTMENTS Comment: Knee replacement, total -Left - [facility] 12/30/2009: ARTHRP KNE CONDYLE&PLATU MEDIAL&LAT COMPARTMENTS Comment: [...] Opioids - Morphine * Intolerance nausea, dizzy, "sees things" Opioids-Meperidine * nausea/vomiting Penicillin G hives Pravachol [...] plan. See patient instructions. Michael Puga DO [address] [place] [address] documented in this encounterPremier Health [facility] Center07-26-2024 Telephone encounter Note * Telephone Encounter - Loli Adamson RN - 11/26/2023 8:41 AM EDT Pt returned call and given provider's message below with verbalized understanding. Patient reports her phone on previous call. [facility]07-26-2024 Miscellaneous Notes* Telephone Encounter - [...] Puga. Asia Rosales APRN.CARMELINA documented in this encounterPremier Health [facility] Center07-26-2024 Telephone encounter Note * Telephone Encounter - Jacque Machuca MA - 11/26/2023 8:24 AM EDT Started to speak with patient and other line disconnected. Please try again. Jacque Machuca MA [facility]07-26-2024 Telephone encounter Note* Telephone Encounter - Asia Rosales APRN.CNP - 11/26/2023 6:55 AM EDT Please let her know that overall no acute concerns with her labs, she can discuss in more detail ather upcoming appt with Dr. Puga. Asia Rosales APRN.COUNTER WAITER [facility] Work Phone: [phone] History of Present illness Narrative* Sarah Merchant, [...] 922 Sarah Merchant PT documented in this encounterPremier Health Upper Valley Medical Center07-23-2024 History of Present illness Narrative* [...] hipweakness/instability with SLS 4: shuttle leg press 2myqqwFd2', SL 5bandsL/R 10xea 5: shuttle calf raises [...] 1501 Sarah Merchant PT documented in this encounterPremier Health [facility] Valley Medical Center07-15-2024 History of Present illness Narrative* Sarah Merchant, [...] of Care: created on 11/15/23 through 01/14/24 [place] in home exercise program. Patient will demonstrate [...] reducing the risk of falls. Patient Goals: "I don't know why I'm here". I guess maybe to strengthen my legs Planned Interventions, Frequency, and Duration: Current Frequency: 2x/week Duration: 8 weeks Total Number of Visits Planned: 15 Planned Treatment Interventions: Therapeutic exercise (04924), Neuromuscular re- education (99786), Therapeutic activities (29310), Self-residential management (73313), Gait Training (39015), Patient/Family/Caregiver Education, General Conditioning PLAN FOR NEXT [...] (although she doesn't like it) Patient Goals: "I don't know why I'm here". I guess maybe to strengthen my legs [...] to Stand Test : 13 sec (from 17" chair without UE assist) Timed Up and [...] 1723 Sarah Merchant PT documented in this encounterPremier Health [facility] Valley Medical Center06-18-2024 Telephone encounter Note * Telephone Encounter - Julianna Cano LPN - 10/19/2023 9:33 AM EDT [facility] informed. D/c Home O2 faxed to [employer]. [facility]06-18-2024 Miscellaneous Notes* Telephone Encounter - Julianna Moreno LPN - 10/19/2023 9:33 AM EDT [facility] informed. D/c Home O2 faxed to [employer]. * Telephone Encounter - Michael Puga DO - 10/19/2023 6:42 AM EDT Order signed to discontinue oxygen Ok to increase dose of trazodone rx updated and sent Please notify Michael Puga DO \\ The following approved medication requests have been transmitted electronically. Requested Prescriptions Signed Prescriptions Disp Refills traZODone (DESYREL) 100 mg tablet 30 tablet 2 Sig: Take 1 tablet by mouth daily at bedtime. Authorizing Provider: MICHAEL PUGA DO * Telephone Encounter - Nadine Colon LPN - 10/18/2023 9:07 AM EDT Bhavna from [facility] calling patient had seen Key Portillo APPLIQUE CUTTER on 10/14/2023. She started her on Trazodone 50 mg at bedtime. Patient started Trazodone rx Wednesday night and said she did not sleep at all, not helping. Asking if the dose could be increased or changed to something else? Patientsaid Zolpidem made her feel hung over. Patient uses [facility] for her pharmacy. Aware APPLIQUE CUTTER is out of the office this week. Patient asking to have oxygen taken out of the household, she is not using it at all. [facility] started her on the oxygen and [employer] is her oxygen supplier. Pending order if wanted. Please call Bhavna back response. Please advise documented in this encounterPremier Health [facility] Medical Center06-18-2024 Telephone encounter Note * Telephone Encounter - Michael Puga DO - 10/19/2023 6:42 AM EDT Order signed to discontinue oxygen Ok to increase dose of trazodone rx updated and sent Please notify Michael Puga DO \\ The following approved medication requests have been transmitted electronically. Requested Prescriptions Signed Prescriptions Disp Refills traZODone (DESYREL) 100 mg tablet 30 tablet 2 Sig: Take 1 tablet by mouth daily at bedtime. Authorizing Provider: MICHAEL PUGA DO [facility]06-17-2024 Telephone encounter Note* Telephone Encounter - Nadine Colon LPN - 10/18/2023 9:07 AM EDT Bhavna from [facility] calling patient had seen Key Portillo NP on 10/14/2023. She started her on Trazodone 50 mg at bedtime. Patient started Trazodone rx Wednesday night and said she did not sleep at all, not helping. Asking if the dose could be increased or changed to something else? Patientsaid Zolpidem made her feel hung over. Patient uses [facility] for her pharmacy. Aware APPLIQUE CUTTER is out of the office this week. Patient asking to have oxygen taken out of the household, she is not using it at all. [facility] started her on the oxygen and [employer] is her oxygen supplier. Pending order if wanted. Please call Bhavna back response. Please advise [facility]06-17-2024 Telephone encounter Note* Telephone Encounter [...] Cano LPN October 18, 2023 8:59 AM [facility]06-17-2024 Miscellaneous Notes* Telephone Encounter - [...] 18, 2023 8:58 AM documented in this encounterPremier Health Upper Valley Medical Center06-17-2024 Telephone encounter Note * Telephone [...] Yumiko Gomez October 18, 2023 8:58 AM [facility]06-13-2024 History of Present illness Narrative* Key Portillo APRN.COUNTER WAITER - 10/14/2023 1:20 PM EDT Chief Complaint Patient presents with: Transition Of Care HPI Michael Meier is a 83 year old female who presents here today for Above Complaints. Michael is an established patient of Dr. Puga, and myself. Concerns today... Hospital follow-up -- [facility] ER visit on 09/26 d/t SOB. [...] Has one day left of prednisone taper. senior care coming to house weekly -- likely last visit will be on Wednesday. Pt and retirement monitoring O2 saturation. Pt has not been [...] not want anything that will make her "feel like a hangover" the next day. No other concerns or [...] COMPARTMENTS 11/15/2009 Knee replacement, total -Left - [facility] ARTHRP KNE CONDYLE&PLATU MEDIAL&LAT COMPARTMENTS [...] Opioids - Morphine * Intolerance nausea, dizzy, "sees things" Opioids-Meperidine * nausea/vomiting Penicillin G hives Pravachol [...] 60+ series) due on 10/13/2024 Covid-19 Vaccine( season) due on 10/13/2024 Diabetes Screening due [...] d/t poor sleep. Continue with at home retirement visits. 2. Anxiety - ICD9: 300.00, ICD10: [...] d/t poor sleep. Continue with at home retirement visits. RTO in 1.5 months as scheduled, sooner if needed. Prescription instructions reviewed with patient as applicable. Potential red flag symptoms discussed with the patient. Reviewed appropriate action plan to take if red flag symptoms occur. Patient agreeable to treatment plan. Key Abrams APRN.COUNTER WAITER [address] [place] [address] documented in this encounterPremier Health [facility] Center06-10-2024 History of Present illness Narrative* Isabella Michel RN - 10/11/2023 1:16 PM EDT TRANSITION CARE MANAGEMENT (TCM) FOLLOW-UP NOTE Provider Action/FYI Patient identified by name and date of : YES Spoke to patient Discharge Network Status: Hqn-nu-Nlnkrin (OON) Discharge Summary: Pt discharged from [facility] on 10/02/23. Admitted for: Shortness of breath Concerns: Pt reports she is doing well and feeling much improved. She is 96% pulse ox on RA. States the nurse with [facility] states her lungs were clear today. has fam med f/u 10/13. Nailing Machine Feeder plan for next outreach: TCM will continue to follow. IRENE Education Ordered -: No Isabella Michel RN October 11, 2023 1:16 PM documented in this encounterPremier Health [facility] Center06-06-2024 Telephone encounter Note * Telephone Encounter - Loli Adamson RN - 10/07/2023 10:23 AM EDT Re-faxed CMP order to [facility] per Ernestine request. Reports they did not receive it yesterday. [facility]06-06-2024 Miscellaneous Notes* Telephone Encounter - Loli Adamson RN - 10/07/2023 10:23 AM EDT Re-faxed CMP order to [facility] per Ernestine request. Reports they did [...] - 10/06/2023 12:00 PM EDT Ernestine with [facility] calling, she spoke with patient today. Patient is doing well recovering from thepneumonia other than she has had diarrhea for 3 days. Today is the worst day and she is having a BMevery time she is urinating. Ernestine states the biggest concern would be dehydration. Asking if PCP has any recommendation. Please advise. documented in this encounterPremier Health [facility] Center06-06-2024 Telephone encounter Note * Telephone Encounter - Katharine Paul MA - 10/07/2023 9:14 AM EDT Spoke Ernestine and faxed order [facility]06-05-2024 Telephone encounter Note* Telephone Encounter - Michael Puga DO - 10/06/2023 10:41 PM EDT Ok to check labs as ordered below If not improving, then will need stool studies/C diff testing Michael Puga DO [facility]06-05-2024 Telephone encounter Note* Telephone Encounter - Mary Lopez LPN - 10/06/2023 12:00 PM EDT Ernestine with [facility] calling, she spoke with patient today. Patient is doing well recovering from thepneumonia other than she has had diarrhea for 3 days. Today is the worst day and she is having a BMevery time she is urinating. Ernestine states the biggest concern would be dehydration. Asking if PCP has any recommendation. Please advise. [facility]06-05-2024 Telephone encounter Note* Telephone Encounter - Katharine Paul MA - 10/06/2023 9:14 AM EDT Nurse from [facility] was notified Katharine Paul MA [facility]06-05-2024 Miscellaneous Notes* Telephone Encounter - Katharine Paul MA - 10/06/2023 9:14 AM EDT Nurse from [facility] was notified Katharine Paul MA * Telephone Encounter - Michael Puga DO - 10/06/2023 9:01 AM EDT Please make sure her Multimedia Authoring Specialist is aware of her BLOOD PRESSURE elevation [...] EDT -Bhavna reports pt was admitted to [facility] nursing today. Bhavna reports Nursing will [...] message/orders. Constance Ervin LPN documented in this encounterPremier Health [facility]06-05-2024 Telephone encounter Note * Telephone Encounter - Michael Puga DO - 10/06/2023 9:01 AM EDT Please make sure her Multimedia Authoring Specialist is aware of her BLOOD PRESSURE elevation [...] cold/allergy symptoms. Authorizing Provider: MICHAEL PUGA DO [facility]06-03-2024 Telephone encounter Note* Telephone Encounter - Constance Ervin LPN - 10/04/2023 3:52 PM EDT -Bhavna reports pt was admitted to [facility] nursing today. Bhavna reports Nursing will [...] Bhavna with provider message/orders. Constance Ervin LPN [facility]06-03-2024 History of Present illness Narrative* Magaly Puri MA - 10/04/2023 11:17 AM EDT POPULATION HEALTH NAVIGATION OUTREACH Action/FYI [facility] Hospital Discharge Follow up. TCM Eligible until 10/16/23. Pt cell [phone] Spoke with patient; scheduled appt Reason for Outreach Community Monitoring/Network Navigator Pools & Phone Line: [facility] Patient Contacted: Spoke to patient/parent/or legal [...] at discharge, doing breathing treatments diligently. Manny [facility] nursing to visit today. Encouraged pt to bring DC papers to PCP f/u Navigation Team Please assist with scheduling [facility] Hospital Discharge Follow up. TCM Eligible until 10/16/23. Pt [phone] Thank you SUMMARY: Discharge Network Status: Azn-ko-Qpjbaby (OON) Discharge Pt discharged from [facility] on 10/02/23. Admitted for: Shortness of [...] TCM Home Visit Referral Source of Stratification: [facility] Hospital Admission Status: Discharged Readmission Risk Score: N/A Patient's zip code: N/A Is zip code within program service area: No Patient meets program referral criteria: No Patient does not qualify for High Risk TCM Home Visit program due to: Readmission Risk Score does not meet criteria Disposition: [facility] will provide TCM outreach follow-up for 30-days Isabella Michel RN October 04, 2023 10:40 AM Contact made with patient: Yes Hi my name is Isabella Michel RN and I am calling from the [facility] on behalf of yourPCP, Michael [...] like to speak with a social work business team leader to help give you support [...] I will send your request to a tin can laborer who will contact and assist you with that appointment. This will give you an opportunity to ask any questions or address any concerns youmay have with your PCP. Inform the patient that if they have any questions or concerns prior to that appointment, to call their PCP's office right away. ACTION TAKEN: Patient desires an appointment - Routed to [facility] [[phone]] for schedulingtelehealth visit (telephonic, virtual visit, or [...] 04, 2023 10:51 AM documented in this encounterPremier Health [facility] Center05-31-2024 Telephone encounter Note * Telephone Encounter - Jacque Machuca MA - 10/01/2023 3:36 PM EDT Larissa informed. Jacque Machuca MA [facility]05-31-2024 Miscellaneous Notes* Telephone Encounter - Jacque Machuca MA - 10/01/2023 3:36 PM EDT Larissa informed. Jacque Machuca MA * Telephone Encounter - Key Portillo APRN.CNP - 10/01/2023 2:39 PM EDT Yes, PCP will follow. Thank you, Key Portillo APRN.CARMELINA * Telephone Encounter - Mary Lopez LPN - 10/01/2023 11:49 AM EDT Larissa from [facility] calling, patient is being discharged from [facility] tomorrow. She was referred for retirement for O2 management. They plan to see patient Wednesday. Asking if PCP is willing to follow.Please advise. documented in this encounterPremier Health [facility]05-31-2024 Telephone encounter Note * Telephone Encounter - Key Portillo APRN.CNP - 10/01/2023 2:39 PM EDT Yes, PCP will follow. Thank you, Key Portillo APRN.COUNTER WAITER [facility]05-31-2024 Telephone encounter Note* Telephone Encounter - Mary Lopez LPN - 10/01/2023 11:49 AM EDT Larissa from [facility] calling, patient is being discharged from [facility] tomorrow. She was referred for retirement for O2 management. They plan to see patient Wednesday. Asking if PCP is willing to follow.Please advise. [facility]12-07-2023 History of Present illness Narrative* Michael Puga, [...] symptoms and feels that she has significant "bags" under her eyes that bother her due [...] have symptoms. Has recently seen Dr. Hickey Multimedia Authoring Specialist and had repeat ECHOand other cardiac testing [...] things together such as going to see [employer] and go out to eat. Abnormal [...] COMPARTMENTS 11/15/2009 Knee replacement, total -Left - [facility] ARTHRP KNE CONDYLE&PLATU MEDIAL&LAT COMPARTMENTS 12/30/2009 Right knee replaced COLONOSCOPY FLX DX W/COLLJ SPEC WHEN PFRMD 06/29/2017 Colonoscopy EGD 10/17/2020 EGD W/O [facility] SPEC VARICIES INJ 01/08/2022 ESOPHAGOGASTRODUODENOSCOPY TRANSORAL DIAGNOSTIC [...] Opioids - Morphine * Intolerance nausea, dizzy, "sees things" Opioids-Meperidine * nausea/vomiting Penicillin G hives Pravachol [...] vaccine - ICD9: V04.89, ICD10: Z23 - [employer] COVID-19 VACCINE ( SEASON) AGE 12+ YR [...] - ICD9: 496, ICD10: J44.9 F/u with Network Security Officer 8. IFG (impaired fasting glucose) - ICD9: [...] plan. See patient instructions. Michael Puga DO [address] [place] [address] documented in this encounterPremier Health [facility] Center11-30-2023 Miscellaneous Notes* Telephone Encounter - Nadine Colon LPN - 04/01/2023 4:20 PM EST Phoned patient and went over notes from Dr Puga with understanding. * Telephone Encounter - Michael Puga DO - 03/31/2023 8:32 PM EST We called the reimbursement representative office but she will need to further discuss with the specialist as well Michael Puga DO * Telephone Encounter - Loli Adamson RN - 03/31/2023 2:45 PM EST Patient asking if pcp ever communicated with Dr. Hickey about her diltiazem making her tired. Pleaseadvise patient. documented in this encounterPremier Health [facility] Center09-11-2023 Miscellaneous Notes* Telephone Encounter - Amanda Pratt RN - 01/11/2023 11:25 AM EDT Order and demographics faxed to Dr. Alcala. Patient notified. * Telephone Encounter - Key Portillo APRN.CARMELINA - 01/11/2023 10:18 AM EDT Order placed. Please fax. Thank you, Key Portillo APRN.COUNTER WAITER * Telephone Encounter - Amanda Pratt RN - 01/11/2023 9:57 AM EDT Patient calls to report that at last OV it was discussed that patient needed to have a sleep study done. Patient requesting to have done with Dr. Alcala and needs to have order/reason for testing faxed to [phone]. Noted referral to pulmonary medicine which was completed but no order for sleep study. Not pended. Wasn't sure what provider wanted. Amanda Pratt RN documented in this encounterPremier Health [facility] Center08-31-2023 Miscellaneous Notes* Telephone Encounter - Chloe Castro LPN - 12/31/2022 8:43 AM EDT Spoke with pt and information listed below given. Pt verbalizes understanding. Transferred pt to tin can laborer to get apt booked. Chloe Castro LPN [...] I would like her to see the Network Security Officer for opinion to determine if any chance ofasthma or COPD present Michael Puga DO documented in this encounterPremier Health [facility] Valley [facility] Center08-28-2023 History of Present illness Narrative* Lexi Peacock RPFT - 12/28/2022 2:00 PM EDT PULM FUNCTION SMARTBLOCK: Provider: Michael Puga DO Assisting Tech: Lexi Peacock RPFT Spirometry w/BD: 1 documented in this encounterPremier Health [facility] Valley [facility] Center08-22-2023 History of Present illness Narrative* Michael Puga DO - 12/22/2022 5:10 PM EDT CC: Michael Meire is a 82 year old [...] he was just recently moved into a fdc. + fatigue, admits that she doesn't want [...] hydrochlorothiazide which dose was recently increased by Multimedia Authoring Specialist. Feels this doesn't make her feel well. Fatigue symptoms, feels she is more isolated for the last 2 years since covid 19 pandemic and limitations with getting out with friends. Also brother Serg is in fdc/ECF now and she is home alone. Has [...] symptoms and feels that she has significant "bags" under her eyes that bother her due [...] have symptoms. Has recently seen Dr. Hickey Multimedia Authoring Specialist and had repeat ECHOand other cardiac testing [...] 11/15/2009 Knee replacement, total -Left - [facility] ARTHRP KNE CONDYLE&PLATU MEDIAL&LAT COMPARTMENTS 12/30/2009 Right knee replaced COLONOSCOPY FLX DX W/COLLJ SPEC WHEN PFRMD 06/29/2017 Colonoscopy EGD 10/17/2020 EGD W/O [facility] SPEC VARICIES INJ 01/08/2022 ESOPHAGOGASTRODUODENOSCOPY TRANSORAL DIAGNOSTIC [...] Opioids - Morphine * Intolerance nausea, dizzy, "sees things" Opioids-Meperidine * nausea/vomiting Penicillin G hives Pravachol [...] 130/62 Pulse 63 Resp 18 Ht 5' 5" (1.65m) Wt 229 lb (103.9kg) SpO2 96% [...] plan. See patient instructions. Michael Puga DO [address] [place] [address] documented in this encounterPremier Health [facility] Center05-31-2023 Miscellaneous Notes* Telephone Encounter - [...] 09/29/2022 9:37 AM EDT Pharmacy verified in [facility] Patient has been identified by name [...] advise. Yvonne Nix Pss documented in this encounterPremier Health [facility] Center02-27-2023 Miscellaneous Notes* Telephone Encounter - [...] patient. Julianna Valladares Pss documented in this encounterPremier Health [facility] Center02-20-2023 Instructions* Patient Instructions* Michael Puga DO - 06/22/2022 12:14 PM EST STOP Metformin medication Increase fluid intake to at least 60 oz of water a day Increase protein intake in your diet- protein drink daily Increase iron supplement to twice a day with a meal documented in this encounterPremier Health [facility] Center02-20-2023 History of Present illness Narrative* [...] he was just recently moved into a fdc. + fatigue, admits that she doesn't want [...] hydrochlorothiazide which dose was recently increased by Multimedia Authoring Specialist. Feels this doesn't make her feel well. Fatigue symptoms, feels she is more isolated for the last 2 years since covid 19 pandemic and limitations with getting out with friends. Also brother Serg is in fdc/ECF now and she is home alone. Has [...] CONDYLE&PLATU MEDIAL&LAT COMPARTMENTS 11/15/2009 Knee replacement, total -[facility] ARTHRP KNE CONDYLE&PLATU MEDIAL&LAT COMPARTMENTS 12/30/2009 Right knee replaced COLONOSCOPY FLX DX W/COLLJ SPEC WHEN PFRMD 06/29/2017 Colonoscopy EGD 10/17/2020 EGD W/O [facility] SPEC VARICIES INJ 01/08/2022 ESOPHAGOGASTRODUODENOSCOPY TRANSORAL DIAGNOSTIC [...] Opioids - Morphine * Intolerance nausea, dizzy, "sees things" Opioids-Meperidine * nausea/vomiting Penicillin G hives Pravachol [...] See patient instructions. Michael Puga DO [address] [place] [address] documented in this encounterPremier Health [facility] Center02-08-2023 Miscellaneous Notes* Telephone Encounter - Carie Lora RN - 06/10/2022 12:43 PM EST Spoke with patient. Given message from provider's office. Patient verbalizes understanding. Carie Lora RN * Telephone Encounter - Jacque Machuca - 06/10/2022 11:49 AM EST Left message for patient to return call. Echo results faxed to [facility] office 06/10/2022 HARIS Machuca * Telephone Encounter - Key Portillo APRN.CNP - 06/10/2022 10:56 AM EST Please call patient and let her know that ECHO shows no acute concerns. I have no ECHO in our system to compare to. Please fax this result to Dr. Hickey's office for review. Thank you, Key Portillo APRN.CNP documented in this encounterPremier Health [facility] Center02-06-2023 Miscellaneous Notes* Telephone Encounter - [...] Machuca * Telephone Encounter - Key Portillo APRN.CARMELINA - 06/08/2022 10:02 AM EST Please call patient and let her know that lab work looks great! No acute concerns. No anemia, no elevation in BNP (heart failure marker). Continue with ECHO. Have BP at home still running high? Thank you, Key Portillo APRN.CARMELINA documented in this encounterPremier Health [facility] Center02-06-2023 Miscellaneous Notes* Telephone Encounter - Key Portillo APRN.CARMELINA - 06/08/2022 7:48 AM EST I agree with 25 mg tablets. Thank you, Key Portillo APRN.COUNTER WAITER * Telephone Encounter - Nadine Colon LPN - 06/05/2022 3:09 PM EST Stephy from [facility] pharmacy calling asking about HCTZ 12.5 [...] phone pharmacy with reply. documented in this encounterPremier Health [facility] Center02-02-2023 Instructions* Patient Instructions* Key Portillo APRN.CNP - 06/04/2022 3:07 PM EST Mounjaro --- weekly Trulcity -- Weekly Victoza -- daily Saxenda -- Daily Start HCTZ 12.5 mg daily for BP and swelling in legs. Follow-up in 1 month to reassess BP. Will assess GLP-1 injection at this time as well. Blood work today. EKG today. Schedule ECHO documented in this encounterPremier Health [facility] Valley Medical Center02-02-2023 History of Present illness Narrative* [...] CONDYLE&PLATU MEDIAL&LAT COMPARTMENTS 11/15/2009 Knee replacement, total -[facility] ARTHRP KNE CONDYLE&PLATU MEDIAL&LAT COMPARTMENTS 12/30/2009 Right knee replaced COLONOSCOPY FLX DX W/COLLJ SPEC WHEN PFRMD 06/29/2017 Colonoscopy EGD 10/17/2020 EGD W/O [facility] SPEC VARICIES INJ 01/08/2022 ESOPHAGOGASTRODUODENOSCOPY TRANSORAL DIAGNOSTIC [...] Opioids - Morphine * Intolerance nausea, dizzy, "sees things" Opioids-Meperidine * nausea/vomiting Penicillin G hives Pravachol [...] agreeable to treatment plan. Key Abrams APRN.CARMELINA [address] [place] [address] documented in this encounterPremier Health [facility] Center01-31-2023 History of Present illness Narrative* [...] 02, 2022 1:53 PM documented in this encounterPremier Health Upper Valley Medical Center01-31-2023 Miscellaneous Notes* Telephone Encounter - [...] PCP with patient's request for glucometer from [facility], and possible need to speak with splitting machine operator helper/stone engraver. Rosaura, you've reached [facility], my name is Magaly Fonatna, GLYNN, I'm a registered nurse, and we [...] Last appointment 04-21-22 Next 06-25-22 Admits to "not eating enough" and stopped drinking PRO drinks.Used to also eat toast with peanut butter, and admits to not even eating that anymore for breakfast. Requesting glucometer meter and supplies from [facility] in [place] Based on what you've told me, I do recommend that you: Routed to Navigation Routed to [facility] Do you understand my recommendations? (After [...] : N/A Protocols used: Weakness (Generalized) and [id number] documented in this encounterPremier Health [facility] Center12-27-2022 Miscellaneous Notes* Telephone Encounter - [...] advise, Bhavna Arauz RN documented in this encounterPremier Health Upper Valley Medical Center12-20-2022 History of Present illness Narrative* Michael Puga, [...] he was just recently moved into a fdc. + fatigue, admits that she doesn't want [...] hydrochlorothiazide which dose was recently increased by Multimedia Authoring Specialist. Feels this doesn't make her feel well. Fatigue symptoms, feels she is more isolated for the last 2 years since covid 19 pandemic and limitations with getting out with friends. Also brother Serg is in fdc/ECF now and she is home alone. Has [...] these. Atrial fibrillation, hx of CAD, seeing Multimedia Authoring Specialist regularly Insomnia, long standing, thinks this is [...] 11/15/2009 Knee replacement, total -Left - [facility] ARTHRP KNE CONDYLE&PLATU MEDIAL&LAT COMPARTMENTS 12/30/2009 Right knee replaced COLONOSCOPY FLX DX W/COLLJ SPEC WHEN PFRMD 06/29/2017 Colonoscopy EGD 10/17/2020 EGD W/O [facility] SPEC VARICIES INJ 01/08/2022 ESOPHAGOGASTRODUODENOSCOPY TRANSORAL DIAGNOSTIC [...] Opioids - Morphine * Intolerance nausea, dizzy, "sees things" Opioids-Meperidine * nausea/vomiting Penicillin G hives Pravachol [...] plan. See patient instructions. Michael Puga DO [address] [place] [address] documented in this encounterPremier Health Upper Valley Medical Center10-17-2022 History of Present illness Narrative* [...] he was just recently moved into a fdc. + fatigue, admits that she doesn't want [...] hydrochlorothiazide which dose was recently increased by Multimedia Authoring Specialist. Feels this doesn't make her feel well. Fatigue symptoms, feels she is more isolated for the last 2 years since covid 19 pandemic and limitations with getting out with friends. Also brother Serg is in fdc/ECF now and she is home alone. Has [...] COMPARTMENTS 11/15/2009 Knee replacement, total -Left - [facility] ARTHRP KNE CONDYLE&PLATU MEDIAL&LAT COMPARTMENTS 12/30/2009 Right knee replaced COLONOSCOPY FLX DX W/COLLJ SPEC WHEN PFRMD 06/29/2017 Colonoscopy EGD 10/17/2020 EGD W/O [facility] SPEC VARICIES INJ 01/08/2022 ESOPHAGOGASTRODUODENOSCOPY TRANSORAL DIAGNOSTIC [...] Opioids - Morphine * Intolerance nausea, dizzy, "sees things" Opioids-Meperidine * nausea/vomiting Penicillin G hives Pravachol [...] plan. See patient instructions. Michael Puga DO [address] [place] [address] documented in this encounterPremier Health [facility] Center09-16-2022 History of Present illness Narrative* [...] needed at this time. documented in this encounterPremier Health Upper Valley Medical Center09-08-2022 History and physical note * [...] 11/15/2009 Knee replacement, total -Left - [facility] ARTHRP KNE CONDYLE&PLATU MEDIAL&LAT COMPARTMENTS 12/30/2009 [...] entered by the nurse and reviewed by or Nursing Notes: Portia Camarillo RN 12/18/2021 3:15 [...] C (98.7 F), height 165.1 cm (5' 5"), weight 102.5 kg (226 lb), SpO2 98 [...] 2022 TIME: 1:00 PM documented in this encounterPremier Health Upper Valley Medical Center09-08-2022 Nurse Note* Nyla Fraga RN - 01/08/2022 2:05 PM EDT Patient arrived laying on left side. States that she is not having any pain at this time. Patient'sabdomen appears to be nondistended and soft at this time. documented in this encounterPremier Health Upper Valley [facility] Center08-31-2022 Miscellaneous Notes* Telephone Encounter - Joshua King - 12/31/2021 11:49 AM EDT Received last note and Pacer check from [facility]. Scanned into [facility] and given to [facility] nurses to review Joshua King documented in this encounterPremier Health Upper Valley Medical Center08-18-2022 History of Present illness Narrative* Raymundo De León MD - 12/18/2021 3:18 PM EDT HISTORY AND PHYSICAL Michael Deras Alexandruyuko 1940 REFERRING PHYSICIAN: Michael Puga DO CHIEF [...] CONDYLE&PLATU MEDIAL&LAT COMPARTMENTS 11/15/2009 Knee replacement, total [facility] ARTHRP KNE CONDYLE&PLATU MEDIAL&LAT COMPARTMENTS 12/30/2009 [...] entered by the nurse and reviewed by or Nursing Notes: Portia Camarillo RN 12/18/2021 3:15 [...] C (98.7 F), height 165.1 cm (5' 5"), weight 102.5 kg (226 lb), SpO2 98 [...] De León III, MD documented in this encounterPremier Health Upper Valley [facility] Center08-18-2022 Nurse Note* Portia Camarillo RN [...] 06/29/2017 Portia Camarillo RN documented in this encounterPremier Health Upper Valley Medical Center06-20-2022 History of Present illness Narrative* [...] sooner. Nunu Gonzalez PA-C documented in this encounterPremier Health [facility] Valley [facility] Center02-18-2022 Miscellaneous Notes* Telephone Encounter - Jacque Dumont Ma - 06/20/2021 8:08 AM EST Pt notified and verbalized understanding Jacque Dumont Ma * Telephone Encounter - Asia Rosales APRN.CNP - 06/19/2021 5:43 PM EST Please let Michael know that her lab results look good, no concerns. Asia Rosales APRN.CNP documented in this encounterPremier Health Upper Valley Medical Center02-07-2022 Evaluation note* Diagnosis Onset Date [...] Paroxysmal atrial fibrillation chronic Sick sinus syndrome [facility] Work Phone: [phone]) [phone] History of Past illness Narrative* Problem Noted [...] 03/11/2015 Last Assessment & Plan: Dx. after [facility] 2009 Actinic keratosis 01/20/2007 03/11/2015 Other chronic [...] of this encounter (statuses as of 09/02/2021) [facility]06-[facility]21 History of Past illness Narrative* [...] 03/11/2015 Last Assessment & Plan: Dx. after [facility] 2009 Actinic keratosis 01/20/2007 03/11/2015 Other chronic [...] of this encounter (statuses as of 09/03/2021) [facility] History of Past illness Narrative* [...] 03/11/2015 Last Assessment & Plan: Dx. after [facility] 2009 Actinic keratosis 01/20/2007 03/11/2015 Other chronic [...] of this encounter (statuses as of 10/20/2021) [facility]06[facility] History of Past illness Narrative* [...] 03/11/2015 Last Assessment & Plan: Dx. after [facility] 2009 Actinic keratosis 01/20/2007 03/11/2015 Other chronic [...] of this encounter (statuses as of 12/21/2021) [facility] History of Past illness Narrative* [...] 03/11/2015 Last Assessment & Plan: Dx. after [facility] 2009 Actinic keratosis 01/20/2007 03/11/2015 Other chronic [...] of this encounter (statuses as of 12/31/2021) [facility] History of Past illness Narrative* [...] 03/11/2015 Last Assessment & Plan: Dx. after [facility] 2009 Actinic keratosis 01/20/2007 03/11/2015 Other chronic [...] of this encounter (statuses as of 01/09/2022) [facility] History of Past illness Narrative* [...] 03/11/2015 Last Assessment & Plan: Dx. after [facility] 2009 Actinic keratosis 01/20/2007 03/11/2015 Other chronic [...] of this encounter (statuses as of 01/16/2022) [facility] History of Past illness Narrative* [...] 03/11/2015 Last Assessment & Plan: Dx. after [facility] 2009 Actinic keratosis 01/20/2007 03/11/2015 Other chronic [...] of this encounter (statuses as of 02/17/2022) [facility]06-[facility] History of Past illness Narrative* [...] 03/11/2015 Last Assessment & Plan: Dx. after [facility] 2009 Actinic keratosis 01/20/2007 03/11/2015 Other chronic [...] of this encounter (statuses as of 04/21/2022) [facility]17[facility]21 History of Past illness Narrative* [...] 03/11/2015 Last Assessment & Plan: Dx. after [facility] 2009 Actinic keratosis 01/20/2007 03/11/2015 Other chronic [...] of this encounter (statuses as of 05/03/2022) [facility]21 History of Past illness Narrative* [...] 03/11/2015 Last Assessment & Plan: Dx. after [facility] 2009 Actinic keratosis 01/20/2007 03/11/2015 Other chronic [...] of this encounter (statuses as of 06/02/2022) [facility] History of Past illness Narrative* [...] 03/11/2015 Last Assessment & Plan: Dx. after [facility] 2009 Actinic keratosis 01/20/2007 03/11/2015 Other chronic [...] of this encounter (statuses as of 06/04/2022) [facility] History of Past illness Narrative* [...] 03/11/2015 Last Assessment & Plan: Dx. after [facility] 2009 Actinic keratosis 01/20/2007 03/11/2015 Other chronic [...] of this encounter (statuses as of 06/08/2022) [facility] History of Past illness Narrative* [...] 03/11/2015 Last Assessment & Plan: Dx. after [facility] 2009 Actinic keratosis 01/20/2007 03/11/2015 Other chronic [...] of this encounter (statuses as of 06/10/2022) [facility] History of Past illness Narrative* [...] 03/11/2015 Last Assessment & Plan: Dx. after [facility] 2009 Actinic keratosis 01/20/2007 03/11/2015 Other chronic [...] of this encounter (statuses as of 06/23/2022) [facility] History of Past illness Narrative* [...] 03/11/2015 Last Assessment & Plan: Dx. after [facility] 2009 Actinic keratosis 01/20/2007 03/11/2015 Other chronic [...] of this encounter (statuses as of 06/30/2022) [facility] History of Past illness Narrative* [...] 03/11/2015 Last Assessment & Plan: Dx. after [facility] 2009 Actinic keratosis 01/20/2007 03/11/2015 Other chronic [...] of this encounter (statuses as of 10/01/2022) [facility] History of Past illness Narrative* [...] 03/11/2015 Last Assessment & Plan: Dx. after [facility] 2009 Actinic keratosis 01/20/2007 03/11/2015 Other chronic [...] of this encounter (statuses as of 12/23/2022) [facility] History of Past illness Narrative* [...] 03/11/2015 Last Assessment & Plan: Dx. after [facility] 2010 Actinic keratosis 01/20/2007 03/11/2015 Other chronic [...] of this encounter (statuses as of 12/29/2022) [facility] History of Past illness Narrative* [...] 03/11/2015 Last Assessment & Plan: Dx. after [facility] 2009 Actinic keratosis 01/20/2007 03/11/2015 Other chronic [...] of this encounter (statuses as of 12/31/2022) [facility] History of Past illness Narrative* [...] 03/11/2015 Last Assessment & Plan: Dx. after [facility] 2009 Actinic keratosis 01/20/2007 03/11/2015 Other chronic [...] of this encounter (statuses as of 01/11/2023) [facility] History of Past illness Narrative* [...] 03/11/2015 Last Assessment & Plan: Dx. after [facility] 2009 Actinic keratosis 01/20/2007 03/11/2015 Other chronic [...] of this encounter (statuses as of 03/07/2023) [facility] History of Past illness Narrative* [...] 03/11/2015 Last Assessment & Plan: Dx. after [facility] 2009 Actinic keratosis 01/20/2007 03/11/2015 Other chronic [...] of this encounter (statuses as of 04/02/2023) [facility] History of Past illness Narrative* [...] 03/11/2015 Last Assessment & Plan: Dx. after [facility] 2009 Actinic keratosis 01/20/2007 03/11/2015 Other chronic [...] of this encounter (statuses as of 04/08/2023) [facility] Author Waleska Phillips [facility] Note Date/Time December 03, 2024 2:[address] [facility] Medical Records Department [address] [place] [address] Instructions for Home/Discharge Instructions 12/03/24 1438 MR#: [id number] Acct: [id number] Name: MICHAEL MEIER Rep #:[id number] : 1940 84 From: Waleska Phillips [...] schedule an appointment for your tremors (ph [phone]) -Please call your primary care provider's office [...] can be placed): Inpatient Rehab Unit/Facility 12/03/24 7036<Electronically signed by Waleska Phillips MD>Waleska Phillips MD CC: Dr. Tacho Davis DO; Dr. Michael Puga DO; Dr. Jonny Vicente MD ~ Signed [facility] Work Phone: Discharge summary Author Jonny Vicente [facility] Note Date/Time January 01, 2025 12:22pm [facility] Medical Records Department [address] [place] [address] Discharge Summary 01/01/25 1216 MR#: [id number] Acct: [id number] Name: MICHAEL MEIER Rep #:[id number] : 1940 84 From: Jonny pacheco MD PCP: JACOBO Hernandez, MIKE Statu s:ADM IN Location: [place] [address] Providers Date of Admission: 12/29/24 Primary Care Physician: JACOBO Hernandez, APPLIQUE CUTTER-C Reason For Visit: CHF EXACERBATION Diagnosis Discharge Diagnosis (1) Acute exacerbation of CHF (congestive heart failure): Status: Chronic Code(s): I50.9 - Heart failure, unspecified Qualifiers: Heart failure type: diastolic Qualified Code(s): I50.33 - Acute on chronic diastolic (congestive) heart failure Medications at Discharge Home Medications aspirin 81 mg tablet,delayed release (Adult Low Dose Aspirin) 81 mg PO QDAY heart health #90 tabs 12/27/18 coenzyme Q10 100 mg capsule (Co Q-10) 100 mg PO QHS supplement 01/23/20 rosuvastatin 10 mg tablet 10 mg PO QHS cholesterol 01/23/20 sucralfate 100 mg/mL oral suspension 10 ml PO TID PRN digestion 11/25/21 cyclosporine 0.05 % eye drops in a dropperette (Restasis) 1 drp EACH EYE Q12H eye health 09/27/23 levothyroxine 50 mcg capsule 50 mcg PO QDAY Thyroid 01/25/24 vitamin B complex (Balanced B-50 tablet) 1 tab PO DAILY supplement 04/30/24 diltiazem HCl 240 mg capsule,extended release 24 hr 240 mg PO QHS heart #90 caps01/13/25 amiodarone 200 mg tablet 200 mg PO DAILY heart #90 tabs 07/20/24 losartan 100 mg tablet 100 mg PO DAILY blood pressure #90 tabs 09/11/24 azelastine 0.05 % eye drops 1 drp ophthalmic (eye) BID PRN eye drops 11/02/24 omeprazole 20 mg capsule,delayed release 20 mg PO BID GERD 11/02/24 acetaminophen 500 mg tablet 1,000 mg (2 x 500 mg) PO Q6H PRN PRN Pain 1-10 Or Fever #90 tabs 12/13/24 gabapentin 100 mg capsule 100 mg PO QHS #30 caps 12/13/24 hydralazine 25 mg tablet 25 mg PO TID #90 tabs 12/13/24 hydralazine 50 mg tablet 75 mg (1.5 x 50 mg) PO TID #90 tabs 12/13/24 sertraline 25 mg tablet See Rx Instructions .Route .COMPLEX #42 tabs 12/13/24 sodium chloride 1,000 mg soluble tablet 1,000 mg PO QDAY #60 tabs 12/27/24 spironolactone 25 mg tablet 25 mg PO DAILY fluid retention #30 tabs 12/27/24 lidocaine 5 % topical patch 1 patch topical DAILY PRN pain 12/30/24 meloxicam 15 mg tablet 15 mg PO DAILY PRN Joint pain 12/30/24 furosemide 20 mg tablet (Lasix) 20 mg PO DAILY #30 tabs 01/01/25 Hospital Course Operations None Procedures None Summary of Care Provided Minutes Spent on Discharge: 35 Hospital Course: Per HPI: MICHAEL MEIER, is a 84 F with multiple comorbidities and chronic shortness of breath, pulmonary hypertension 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 Owen Alcala was sent to patient ED for shortness of breath, increased swelling. Suzy had numbness in tingling in left lower leg. Patient is stated Droxy reallyhas not been feeling its right heart cath for evaluation of pulmonary hypertension and its medication but that will be the elective procedure. In ED, she was found to have short of breath and patient states that for last 2 weeks she gets short of breath even with ADLs/minor activities. She has gained about 8 to 9 pounds in last 3 to 4 days along with leg swelling and abdominal distention. She was evaluated by ED documentation not addressed in the H&P havebeen ruled out, unless otherwise noted/mentioned. On 12/23 for similar symptoms and was sent home treatment. She denies chest pain pressure or tightness. In the ED, her assessment was more consistent with CHF exacerbation therefore furosemide 40 mg IV was given. Her vitals shows BP high at 170/78, heart rate 60/min, pulse ox 100% on room air but she desaturated on ambulation therefore being admitted Hospital Course: 1. Acute hypoxic respiratory sufficiency secondary to acute on chronic diastolic CHF with moderate pulmonary hypertension?84-year-old female presented to the hospital with increasing shortness of breath. She was recently discharged from the rehab unit where her Lasix was discontinued due to concerns for hyponatremia. Her sodium is normal as she is being tapered off of her SSRI with concern for SIADH from the rehab unit. However she has had significant improvement and is off of oxygen with IV Lasix therefore elected to place her back on her p.o. Lasix dosing of 20 mg daily on discharge. She had an amatory pulse ox which did not demonstrate a need for any oxygen either at rest or with ambulation. Recommend that she follow-up with her PCP in 3 to 5 days as well aswith cardiology for further monitoring. 2. Paroxysmal A-fib, essential hypertension, hyperlipidemia, hypothyroidism, GERD with a history of GI bleed, anxiety, depression are all chronic medical conditions which complicate her care. Her home medications were continued whereappropriate. Physical Exam Narrative General: Alert, Oriented x3, Cooperative, No apparent distress HEENT: Atraumatic, PERRLA, EOMI, Normocephalic Oral: Moist Mucosa Neck: Supple, No JVD Lungs: Diminished, Normal air movement, bibasilar crackles, No wheeze, No rales Cardiovascular: Regular rate, Regular Rhythm, Normal S1, Normal S2, No murmurs Abdomen: Soft, Non Tender, Non-Distended, No Hepato-splenomegaly Extremities: Trace edema, Capillary Refill Less than 3 Seconds Skin: No rashes, No breakdown Musculoskeletal: No Tenderness to Palpation of Joints or Extremities Neurological: No focal neurological deficits, Motor Exam 5/5 strength throughout, Sensory exam intact to light touch and pain Psych/Mental Status: Normal Affect, Appropriate Weight / BMI Weight Weight: 244 lb 7.882 oz Body Mass Index (BMI) 40.6 ABG / Lab / Microbiology Data 12/31/24 04:55 01/01/25 05:37 Laboratory: Laboratory Results - last 24 hr 01/01/25 05:37: Sodium 141, Potassium 3.7, Chloride 102, Carbon Dioxide 26.9, Anion Gap 13, BUN 26 H, Creatinine 1.10, Estim Creat Clear Calc 48.06 L, Est GFR(MDRD) Non-Af 50 L, BUN/Creatinine Ratio 23.4 H, Glucose 112 H, Calcium 9.0 D/C Instructions Call your doctor if you observe: Fever of 101 or Higher, Shortness of breath, Dizziness, Fainting spells, Swelling in the ankles, Chest pain and Increased palpitations (irregular heartbeat) DC O2, CPAP, BIPAP Needs Home O2 Discharge instructions: No Meaningful Use Info Meaningful Use Meaningful Use Diagnoses (Choose all that apply): None applicable Discharge Plan Admission Admit Date/Time: 12/29/24 16:24 Attending Provider: Jonny Vicente Primary Care Provider: Karen Johnson Consulting Providers: Len Nicolas Discharge Orders/Prescriptions Prescriptions: New furosemide [Lasix] 20 mg tablet 20 mg PO DAILY Qty: 30 0RF Continued aspirin [Adult Low Dose Aspirin] 81 mg tablet,delayed release (DR/EC) 81 mg PO QDAY Qty: 90 3RF rosuvastatin 10 mg tablet 10 mg PO QHS coenzyme Q10 [Co Q-10] 100 mg capsule 100 mg PO QHS sucralfate 100 mg/mL suspension 10 ml PO TID PRN (Reason: digestion) Patient Comments: TAKE 10 ML BY MOUTH 4 TIMES DAILY levothyroxine 50 mcg capsule 50 mcg PO QDAY omeprazole 20 mg capsule,delayed release(DR/EC) 20 mg PO BID sodium chloride 1,000 mg tablet,soluble 1,000 mg PO QDAY Qty: 60 0RF spironolactone 25 mg tablet 25 mg PO DAILY Qty: 30 11RF cyclosporine [Restasis] 0.05 % dropperette 1 drp EACH EYE Q12H meloxicam 15 mg tablet 15 mg PO DAILY PRN (Reason: Joint pain) Rx Instructions: Take this with food. lidocaine 5 % Adhesive Patch,Medicated 1 patch topical DAILY PRN (Reason: pain) Protocol: *Topical Application Instructions APPLICATION INSTRUCTIONS: left outer hip Rx Instructions: remove the patch 12 H after it is applied. vitamin B complex [Balanced B-50] Tablet 1 tab PO DAILY azelastine 0.05 % drops 1 drp ophthalmic (eye) BID PRN (Reason: eye drops) acetaminophen 500 mg Tablet 1,000 mg PO [...] 100 mg PO QHS Qty: 30 0RF sertraline 25 mg tablet See Rx [...] total of 75 mg 3 times aday. diltiazem HCl 240 mg capsule,extended release 24hr 240 mg PO QHS Qty: 90 3RF amiodarone 200 mg tablet 200 mg PO DAILY Qty: 90 3RF losartan 100 mg tablet 100 mg PO DAILY Qty: 90 3RF Referrals / Follow Up: Anabel Horne PA [Med Staff - [facility]] - Within 1 Month Karen Johnson, APPLIQUE CUTTER-C [Primary Care Provider] - Within 1 Week Disposition Disposition (needs filled in before D/C Order can be placed): Home, Self Care Charges/Coding Visit Charges Inpatient E&M: 12081 Disch Hosp >30min 01/01/25 1222 <Electronically signed by Jonny Vicente MD> Cosigner Signature (if applicable): CC: JACOBO APPLIQUE CUTTER-C Karen Johnson; Dr. Jonny Vicente MD~ Signed [facility] Work Phone: Evaluation note* Diagnosis Urinary frequency- Primary Glucosuria Glycosuria documented in this encounter [facility] note* Diagnosis Gastroesophageal reflux disease with esophagitis without hemorrhage- Primary documented in this encounter [facility] note* Diagnosis Gastroesophageal reflux disease, unspecified whether esophagitis present- Primary Gastroesophageal reflux disease with esophagitis without hemorrhage [facility] Diagnosis Gastroesophageal reflux disease with esophagitis without hemorrhage- Primary [facility] Diagnosis Dysthymia- Primary Dysthymic disorder Need for influenza vaccination Need for prophylactic vaccination and inoculation against influenza Arthritis, multiple joint involvement Unspecified arthropathy, multiple sites IFG (impaired fasting glucose) Impaired fasting glucose Obesity, Class II, BMI 35-39.9 Obesity, unspecified Fatigue, unspecified type Iron deficiency Iron deficiency anemia, unspecified [facility] Diagnosis Dysthymia- Primary Dysthymic disorder Situational insomnia Transient disorder of initiating or maintaining sleep Arthritis, multiple joint involvement Unspecified arthropathy, multiple sites IFG (impaired fasting glucose) Impaired fasting glucose Obesity, Class II, BMI 35-39.9 Obesity, unspecified Fatigue, unspecified type Iron deficiency Iron deficiency anemia, unspecified [facility] this encounter [facility]* Diagnosis Fatigue, unspecified type- Primary SOB (shortness of breath) on exertion Shortness of breath Hyperlipidemia, unspecified hyperlipidemia type Obesity, Class II, BMI 35-39.9 Obesity, unspecified IFG (impaired fasting glucose) Impaired fasting glucose Iron deficiency anemia, unspecified iron deficiency anemia type Vitamin D deficiency Unspecified vitamin D deficiency Bilateral leg edema Edema Primary hypertension Unspecified essential hypertension [facility] this encounter [facility]* Diagnosis Iron deficiency- Primary Iron deficiency [...] arthropathy, multiple sites documented in this encounter [facility]* Diagnosis Situational insomnia Transient disorder of initiating or maintaining sleep Situational mixed anxiety and depressive disorder Adjustment disorder with mixed anxiety and depressed mood [facility] Diagnosis TIA (transient ischemic attack) Unspecified transient cerebral ischemia Hyperlipidemia, unspecified hyperlipidemia type Anxiety Anxiety state, unspecified documented in this encounter [facility]* Diagnosis WELCH (dyspnea on exertion)- Primary Other dyspnea and respiratory abnormality Fatigue, unspecified type Obesity, Class II, BMI 35-39.9 Obesity, unspecified IFG (impaired fasting glucose) Impaired fasting glucose Vitamin B12 deficiency Other B-complex deficiencies Primary hypertension Unspecified essential hypertension Disorder of carotid artery (HCC) Unspecified disorders of arteries and arterioles documented in this encounter [facility]* Diagnosis WELCH (dyspnea on exertion) Other dyspnea and respiratory abnormality documented in this encounter [facility]* Diagnosis Obstructive lung disease (HCC)- Primary Chronic airway obstruction, not elsewhere classified WELCH (dyspnea on exertion) Other dyspnea and respiratory abnormality documented in this encounter [facility] note* Diagnosis Fatigue, unspecified type- Primary documented [facility] this encounter [facility]* Diagnosis WELCH (dyspnea on exertion) Other dyspnea and respiratory abnormality documented in this encounter [facility]* Diagnosis Subclinical hypothyroidism- Primary Other specified [...] trunk, except scrotum documented in this encounter [facility]* Diagnosis Diarrhea, unspecified type- Primary documented in this encounter [facility]* Diagnosis Hospital discharge follow-up- Primary Other [...] Unspecified essential hypertension [facility] this [facility]* Diagnosis Situational insomnia Transient disorder of initiating or maintaining sleep Situational mixed anxiety and depressive disorder Adjustment disorder with mixed anxiety and depressed mood documented in this encounter [facility] note* Diagnosis Chronic respiratory failure with hypoxia (HCC)- Primary Chronic respiratory failure Sleep disturbances Sleep disturbance, unspecified [facility] Diagnosis Weakness- Primary Other malaise and fatigue Difficulty walking Difficulty in walking Imbalance Abnormality of gait [facility] Diagnosis Weakness- Primary Other malaise and fatigue Difficulty walking Difficulty in walking Imbalance Abnormality of gait [facility] Diagnosis Weakness- Primary Other malaise and fatigue Difficulty walking Difficulty in walking Imbalance Abnormality of gait [facility] Diagnosis Acute bronchitis, unspecified organism- Primary [...] trunk, except scrotum [facility] Diagnosis Weakness- Primary Other malaise and fatigue [facility] Diagnosis Weakness- Primary Other malaise and fatigue Difficulty walking Difficulty in walking Imbalance Abnormality of gait [facility] Diagnosis Arthritis, multiple joint involvement- Primary Unspecified arthropathy, multiple sites Spinal stenosis of lumbar region without neurogenic claudication Spinal stenosis, lumbar region, without neurogenic claudication [facility] Diagnosis Weakness- Primary Other malaise and fatigue Imbalance Abnormality of gait Difficulty walking Difficulty in walking [facility] Diagnosis Weakness- Primary Other malaise and fatigue Imbalance Abnormality of gait [facility] Diagnosis Weakness- Primary Other malaise and fatigue Imbalance Abnormality of gait Difficulty walking Difficulty in walking [facility] Diagnosis Weakness- Primary Other malaise and fatigue Imbalance Abnormality of gait Difficulty walking Difficulty in walking [facility] Diagnosis Weakness- Primary Other malaise and fatigue Imbalance Abnormality of gait [facility] Diagnosis Difficulty walking- Primary Difficulty in walking Imbalance Abnormality of gait Weakness Other malaise and fatigue [facility] Diagnosis Arthritis, multiple joint involvement- Primary Unspecified arthropathy, multiple sites Anxiety Anxiety state, unspecified Need for influenza vaccination Need for prophylactic vaccination and inoculation against influenza Epigastric abdominal pain Abdominal pain, epigastric Obstructive lung disease (HCC) Chronic airway obstruction, not elsewhere classified Gait abnormality Abnormality of gait Imbalance Abnormality of gait [facility] Diagnosis Difficulty walking- Primary Difficulty in walking Imbalance Abnormality of gait Weakness Other malaise and fatigue documented [facility] Diagnosis Epigastric abdominal pain- Primary Abdominal pain, epigastric Pulmonary hypertension (HCC) Other chronic pulmonary heart diseases documented [facility] this [facility] Diagnosis Difficulty walking- Primary Difficulty in walking Imbalance Abnormality of gait Weakness Other malaise and fatigue [facility] Diagnosis Difficulty walking- Primary Difficulty in walking Imbalance Abnormality of gait Weakness Other malaise and fatigue [facility] Diagnosis Difficulty walking- Primary Difficulty in walking Imbalance Abnormality of gait Weakness Other malaise and fatigue [facility] Diagnosis Pre-operative examination- Primary Preoperative examination, unspecified JOSE on CPAP Obstructive sleep apnea (adult) (pediatric) Obstructive lung disease (HCC) Chronic airway obstruction, not elsewhere classified Primary hypertension Unspecified essential hypertension Hyperlipidemia, unspecified hyperlipidemia type 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 Paroxysmal atrial fibrillation (HCC) Atrial [...] Assessment & Plan Note - Mary Foster APRN.COUNTER WAITER - 03/31/2024 6:43 AM EST Associated Problem(s): GERD (gastroesophageal reflux disease) Assessment: otc rx as needed * Assessment & Plan Note - Mary Foster APRN.CARMELINA - 03/31/2024 6:42 AM EST Associated Problem(s): [...] EST Associated Problem(s): 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 Assessment: s/p 10/2021 ICD placement, [...] Assessment: c/w CPAP documented in [facility] Pre-operative examination- Primary Preoperative examination, unspecified JOSE on CPAP Obstructive sleep apnea (adult) (pediatric) Obstructive lung disease (HCC) Chronic airway obstruction, not elsewhere classified Primary hypertension Unspecified essential hypertension Hyperlipidemia, unspecified hyperlipidemia type 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 Paroxysmal atrial fibrillation (HCC) Atrial [...] pulmonary heart diseases [facility] Diagnosis Pre-operative examination- Primary Preoperative examination, unspecified JOSE on CPAP Obstructive sleep apnea (adult) (pediatric) Obstructive lung disease (HCC) Chronic airway obstruction, not elsewhere classified Primary hypertension Unspecified essential hypertension Hyperlipidemia, unspecified hyperlipidemia type 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 Paroxysmal atrial fibrillation (HCC) Atrial [...] without bleeding- Primary documented in this encounter [facility] note* Diagnosis Pre-operative examination- Primary Preoperative examination, unspecified JOSE on CPAP Obstructive sleep apnea (adult) (pediatric) Obstructive lung disease (HCC) Chronic airway obstruction, not elsewhere classified Primary hypertension Unspecified essential hypertension Hyperlipidemia, unspecified hyperlipidemia type 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 Paroxysmal atrial fibrillation (HCC) Atrial [...] malaise and fatigue documented in this encounter [facility] note* Diagnosis Pre-operative examination- Primary Preoperative examination, unspecified JOSE on CPAP Obstructive sleep apnea (adult) (pediatric) Obstructive lung disease (HCC) Chronic airway obstruction, not elsewhere classified Primary hypertension Unspecified essential hypertension Hyperlipidemia, unspecified hyperlipidemia type 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 Paroxysmal atrial fibrillation (HCC) Atrial [...] Abnormality of gait [facility] Diagnosis Pre-operative examination- Primary Preoperative examination, unspecified JOSE on CPAP Obstructive sleep apnea (adult) (pediatric) Obstructive lung disease (HCC) Chronic airway obstruction, not elsewhere classified Primary hypertension Unspecified essential hypertension Hyperlipidemia, unspecified hyperlipidemia type 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 Paroxysmal atrial fibrillation (HCC) Atrial [...] and depressed mood [facility] Diagnosis Pre-operative examination- Primary Preoperative examination, unspecified JOSE on CPAP Obstructive sleep apnea (adult) (pediatric) Obstructive lung disease (HCC) Chronic airway obstruction, not elsewhere classified Primary hypertension Unspecified essential hypertension Hyperlipidemia, unspecified hyperlipidemia type 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 Paroxysmal atrial fibrillation (HCC) Atrial [...] legs syndrome (RLS) documented [facility] Diagnosis Pre-operative examination- Primary Preoperative examination, unspecified JOSE on CPAP Obstructive sleep apnea (adult) (pediatric) Obstructive lung disease (HCC) Chronic airway obstruction, not elsewhere classified Primary hypertension Unspecified essential hypertension Hyperlipidemia, unspecified hyperlipidemia type 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 Paroxysmal atrial fibrillation (HCC) Atrial [...] Anxiety state, unspecified [facility] Diagnosis Pre-operative examination- Primary Preoperative examination, unspecified JOSE on CPAP Obstructive sleep apnea (adult) (pediatric) Obstructive lung disease (HCC) Chronic airway obstruction, not elsewhere classified Primary hypertension Unspecified essential hypertension Hyperlipidemia, unspecified hyperlipidemia type 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 Paroxysmal atrial fibrillation (HCC) Atrial [...] failure type (HCC) [facility] Diagnosis Pre-operative examination- Primary Preoperative examination, unspecified JOSE on CPAP Obstructive sleep apnea (adult) (pediatric) Obstructive lung disease (HCC) Chronic airway obstruction, not elsewhere classified Primary hypertension Unspecified essential hypertension Hyperlipidemia, unspecified hyperlipidemia type 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 Paroxysmal atrial fibrillation (HCC) Atrial [...] failure type (HCC) [facility] Diagnosis Pre-operative examination- Primary Preoperative examination, unspecified JOSE on CPAP Obstructive sleep apnea (adult) (pediatric) Obstructive lung disease (HCC) Chronic airway obstruction, not elsewhere classified Primary hypertension Unspecified essential hypertension Hyperlipidemia, unspecified hyperlipidemia type 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 Paroxysmal atrial fibrillation (HCC) Atrial [...] arthropathy, multiple sites [facility] Diagnosis Pre-operative examination- Primary Preoperative examination, unspecified JOSE on CPAP Obstructive sleep apnea (adult) (pediatric) Obstructive lung disease (HCC) Chronic airway obstruction, not elsewhere classified Primary hypertension Unspecified essential hypertension Hyperlipidemia, unspecified hyperlipidemia type 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 Paroxysmal atrial fibrillation (HCC) Atrial [...] pulmonary heart diseases [facility] Diagnosis Pre-operative examination- Primary Preoperative examination, unspecified JOSE on CPAP Obstructive sleep apnea (adult) (pediatric) Obstructive lung disease (HCC) Chronic airway obstruction, not elsewhere classified Primary hypertension Unspecified essential hypertension Hyperlipidemia, unspecified hyperlipidemia type 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 Paroxysmal atrial fibrillation (HCC) Atrial [...] Chronic respiratory failure [facility] Diagnosis Pre-operative examination- Primary Preoperative examination, unspecified JOSE on CPAP Obstructive sleep apnea (adult) (pediatric) Obstructive lung disease (HCC) Chronic airway obstruction, not elsewhere classified Primary hypertension Unspecified essential hypertension Hyperlipidemia, unspecified hyperlipidemia type 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 Paroxysmal atrial fibrillation (HCC) Atrial [...] Chronic respiratory failure documented in this encounter [facility] note* Diagnosis Pre-operative examination- Primary Preoperative examination, unspecified JOSE on CPAP Obstructive sleep apnea (adult) (pediatric) Obstructive lung disease (HCC) Chronic airway obstruction, not elsewhere classified Primary hypertension Unspecified essential hypertension Hyperlipidemia, unspecified hyperlipidemia type 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 Paroxysmal atrial fibrillation (HCC) Atrial [...] arthropathy, multiple sites documented in this encounter [facility] note* Diagnosis Pre-operative examination- Primary Preoperative examination, unspecified JOSE on CPAP Obstructive sleep apnea (adult) (pediatric) Obstructive lung disease (HCC) Chronic airway obstruction, not elsewhere classified Primary hypertension Unspecified essential hypertension Hyperlipidemia, unspecified hyperlipidemia type 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 Paroxysmal atrial fibrillation (HCC) Atrial [...] Abnormality of gait [facility] Diagnosis Pre-operative examination- Primary Preoperative examination, unspecified JOSE on CPAP Obstructive sleep apnea (adult) (pediatric) Obstructive lung disease (HCC) Chronic airway obstruction, not elsewhere classified Primary hypertension Unspecified essential hypertension Hyperlipidemia, unspecified hyperlipidemia type 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 Paroxysmal atrial fibrillation (HCC) Atrial [...] Abnormality of gait [facility] Diagnosis Pre-operative examination- Primary Preoperative examination, unspecified JOSE on CPAP Obstructive sleep apnea (adult) (pediatric) Obstructive lung disease (HCC) Chronic airway obstruction, not elsewhere classified Primary hypertension Unspecified essential hypertension Hyperlipidemia, unspecified hyperlipidemia type 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 Paroxysmal atrial fibrillation (HCC) Atrial [...] Abnormality of gait documented in [facility] Diagnosis Pre-operative examination- Primary Preoperative examination, unspecified JOSE on CPAP Obstructive sleep apnea (adult) (pediatric) Obstructive lung disease (HCC) Chronic airway obstruction, not elsewhere classified Primary hypertension Unspecified essential hypertension Hyperlipidemia, unspecified hyperlipidemia type 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 Paroxysmal atrial fibrillation (HCC) Atrial [...] Abnormality of gait documented [facility] noteNo assessment information availableBlLittle Company of Mary [facility] Work Phone: Evaluation note* Diagnosis Onset Date Resolution Status Admit Date WELCH (dyspnea on exertion) acute November 02, 2024 9:16am 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 November 02, 2024 9:16am Pulmonary hypertension acute 2024 9:16am Right carotid bruit acute November 02, 2024 9:16am Essential (primary) hypertension chronic November 02, 2024 9:16am History of permanent cardiac pacemaker placement June 09, 2021 chronic J silvia 2024 9:16am Paroxysmal atrial fibrillation chronic November 02, 2024 9:16am [facility] Work Phone: Evaluation note* Diagnosis Pre-operative examination- Primary Preoperative examination, unspecified JOSE on CPAP Obstructive sleep apnea (adult) (pediatric) Obstructive lung disease (HCC) Chronic airway obstruction, not elsewhere classified Primary hypertension Unspecified essential hypertension Hyperlipidemia, unspecified hyperlipidemia type 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 Paroxysmal atrial fibrillation (HCC) Atrial [...] Anxiety state, unspecified documented [facility]* Diagnosis Pre-operative examination- Primary Preoperative examination, unspecified JOSE on CPAP Obstructive sleep apnea (adult) (pediatric) Obstructive lung disease (HCC) Chronic airway obstruction, not elsewhere classified Primary hypertension Unspecified essential hypertension Hyperlipidemia, unspecified hyperlipidemia type 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 Paroxysmal atrial fibrillation (HCC) Atrial [...] unspecified hyperlipidemia type [facility] Diagnosis Pre-operative examination- Primary Preoperative examination, unspecified JOSE on CPAP Obstructive sleep apnea (adult) (pediatric) Obstructive lung disease (HCC) Chronic airway obstruction, not elsewhere classified Primary hypertension Unspecified essential hypertension Hyperlipidemia, unspecified hyperlipidemia type 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 Paroxysmal atrial fibrillation (HCC) Atrial [...] type [facility] Diagnosis Pre-operative examination- Primary Preoperative examination, unspecified JOSE on CPAP Obstructive sleep apnea (adult) (pediatric) Obstructive lung disease (HCC) Chronic airway obstruction, not elsewhere classified Primary hypertension Unspecified essential hypertension Hyperlipidemia, unspecified hyperlipidemia type 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 Paroxysmal atrial fibrillation (HCC) Atrial [...] Gastroesophageal reflux disease, unspecified whether esophagitis present Pulmonary hypertension (HCC)- Primary Other chronic pulmonary heart diseases Chronic heart failure with preserved ejection fraction (HFpEF) (HCC) Atrial fibrillation, unspecified type (HCC) Exertional dyspnea Other dyspnea and respiratory abnormality JOSE (obstructive sleep apnea) Obstructive sleep apnea (adult) (pediatric) documented in this encounter [facility] Discharge instructionsAdditional Instructions DISCHARGE INSTRUCTIONS PLEASE READ [...] schedule an appointment for your tremors ( [phone]) -Please call your primary care provider's office upon discharge to schedule a hospital follow up within 1 week. -For any concerning signs or symptoms please call 911 or [facility] the [facility] Work Phone: Hospital Discharge instructionsAdditional Instructions 1. [...] SSRI after you have been taking it group home because you will have withdrawal. there are [...] do not hesitate to call me!. OFFICE: [phone] CELL: [phone] NURSES STATION ON REHAB: [phone] [facility]: [facility] Phone: Hospital Discharge instructionsAdditional Instructions Continue your previous medications and routines. Return with increased difficulty breathing, new or worsening symptoms.[facility] Work Phone: Reason for referral (narrative)* Outpatient Procedure (Routine) - Authorized Specialty Diagnoses / Procedures Referred By Colton bond Referred To Contact [facility] Diagnoses Gastroesophageal reflux disease with esophagitis without hemorrhage Procedures EGD DIAGNOSTIC ESOPHAGOGASTRODUODENOSC OPY TRANSORAL DIAGNOSTIC Raymundo De León MD [address] [place] [address] [place] [address] Referral ID Status Reason Start Date Expiration Date Visits Requested Visits Authorized [id number] Authorized Auto-Generat ed Referral 12/18/2021 12/18/2022 1 1 T [facility] for referral (narrative)* Outpatient Procedure (Routine) - Closed Specialty Diagnoses / Procedures Referred By Colton bond Referred To Contact [facility] Diagnoses Gastroesophageal reflux disease with esophagitis without hemorrhage Procedures EGD DIAGNOSTIC ESOPHAGOGASTRODUODENOSC OPY TRANSORAL DIAGNOSTIC Raymundo De León MD [address] [place] [address] [place] [address] Referral ID Status Reason Start Date Expiration Date V isits Requested Visits Authorized [id number] Closed Auto-Generate d Referral 12/18/2021 12/18/2022 1 1 [facility] for referral (narrative)* Outpatient Procedure (Routine) - Authorized Specialty Diagnoses / Procedures Referred By Contac t Referred To Contact [facility] Diagnoses SOB (shortness of breath) on exertion Procedures ECHO ECHO TTHRC R-T 2D W/WOM-MODE COMPL SPEC&COLR D Key Portillo APRN.COUNTER WAITER [address] [place] [address] [facility] [address] [address] Referral ID Status Reason Start Date Expiration Date Visits Requested Visits Authorized [id number] Authorized Auto-Generat ed Referral 06/04/2022 06/04/2023 1 1 * Outpatient Procedure (Routine) - Closed Specialty Diagnoses / Procedures [facility] To [facility] Diagnoses SOB (shortness of breath) on exertion Procedures ECG COMPLETE ECG ROUTINE ECG W/LEAST 12 LDS W/I&R Key Portillo APRN.COUNTER WAITER [address] [place] [address] [facility] [address] [address] Referral ID Status Reason Start Date Expiration Date V isits Requested Visits Authorized [id number] Closed Auto-Generate d Referral 06/04/2022 06/04/2023 1 1 [facility] for referral (narrative)* Outpatient Procedure (Routine) - Authorized Specialty Diagnoses / Procedures Referred By Contac t Referred To Contact [facility] Diagnoses WELCH (dyspnea on exertion) Procedures SPIROMETRY - BASELINE AND POST DILATOR BRNCDILAT RSPSE SPMTRY PRE&POST-BRNCDILAT ADMN Michael Puga DO [address] [place] [address] [facility] [place] [address] [place] [id number] Referral ID Status Reason Start Date Expiration Date Visits Requested Visits Authorized [id number] Authorized Auto-Generat ed Referral 12/22/2022 01/21/2024 1 1 [facility] for referral (narrative)* Outpatient Procedure (Routine) - Authorized Specialty Diagnoses / Procedures Referred By Contac t Referred To Contact [facility] Diagnoses Epigastric abdominal pain Pulmonary hypertension (HCC) Procedures EGD DIAGNOSTIC ESOPHAGOGASTRODUODENOSCO PY TRANSORAL DIAGNOSTIC Sharon Jarrett APRN.CNP [address] [place] [address] [place] [id number] Referral ID Status Reason Start Date Expiration Date Visits Requested Visits Authorized [id number] Authorized Auto-Generat ed Referral 03/13/2025 1 1 [facility] for referral (narrative)* Outpatient Procedure (Routine) - Closed Specialty Diagnoses / Procedures Referred By Contac t Referred To Contact [facility] Diagnoses Epigastric abdominal pain Pulmonary hypertension (HCC) Procedures EGD DIAGNOSTIC ESOPHAGOGASTRODUODENOSCO PY TRANSORAL DIAGNOSTIC Sharon Jarrett APRN.CNP [address] [place] [address] [place] [address] Referral ID Status Reason Start Date Expiration Date V isits Requested Visits Authorized [id number] Closed Auto-Generate d Referral 03/13/2024 03/13/2025 1 1 [facility] for referral (narrative)No reason for referral information availableWBrecksville [facility] Work Phone: Reason for visit Narrative* Outpatient Procedure (Routine) - Closed Specialty Diagnoses / Procedures Referred By Contac t Referred To Contact [facility] Diagnoses Gastroesophageal reflux disease with esophagitis without hemorrhage Procedures EGD DIAGNOSTIC ESOPHAGOGASTRODUODENOSC OPY TRANSORAL DIAGNOSTIC Raymundo De León MD [address] [place] [address] [facility] [place] [address] [place] [id number] Referral ID Status Reason Start Date Expiration Date V isits Requested Visits Authorized [id number] Closed Auto-Generate d Referral 12/18/2021 12/18/2022 1 1 [facility]* Outpatient Procedure (Routine) - Closed Specialty Diagnoses / Procedures Referred By Contac t Referred To [facility] Diagnoses Epigastric abdominal pain Pulmonary hypertension (HCC) Procedures EGD DIAGNOSTIC ESOPHAGOGASTRODUODENOSCO PY TRANSORAL DIAGNOSTIC Sharon Jarrett, MIRIAN.COUNTER WAITER [address] [place] [address] [facility] [place] [address] [place] [id number] Referral ID Status Reason Start Date Expiration Date V isits Requested Visits Authorized [id number] Closed Auto-Generate d Referral 03/13/2024 03/13/2025 1 1 [facility] Summary Purpose Family History No Family History [...] FoundDocuments on File Type Date Recorded Patient Nutritional Chemist Expl anation Advance Directive(s) 10/17/2020 9:40 AM Advance Directive(s) 06/29/2017 10:43 AM Advance Directive(s) 06/29/2017 6:40 AM Advance Directive Response Recorded Date/ Time Advance Directives Yes June 09, 2021 11:35am Living Will Yes June 09 11:35am Power of Field Associate Yes June 09, 2021 11:35am Documents on File Type Date Recorded Patient Nutritional Chemist Expl anation Advance Directive(s) 06/29/2017 6:40 AM Documents on File Type Date Recorded Patient Nutritional Chemist Expl anation Advance Directive(s) 06/29/2017 6:40 AM Advance Directive Response Recorded Date/ Time Living Will Yes September 28, 2023 1 2:26am Power of Field Associate Yes September 28, 2023 12:26am Living Will Yes April 30 024 11:40am Power of Field Associate Yes April 30, 2024 11:40am Name of Medical Power of Field Associate Yumiko Elena, daughter April 30, 2024 11:40am Advance Directives Yes June 09, 2021 11:35am Advance Directive Response Recorded Date/ Time Living Will Yes September 28, 2023 1 2:26am Do you have a Healthcare Pow er of Field Associate? Yes September 28, 2023 12:26am Living Will Yes April 30 024 11:40am Do you have a Healthcare Pow er of Field Associate? Yes April 30, 2024 11:40am Name of Medical Power of Field Associate Yumiko Elena, daughter April 30, 2024 11:40am Advance Directives Yes June 09, 2021 11:35am Advance Directive Response Recorded Date/ Time Advance Directives Yes June 09, 2021 11:35am Advance Directive Response Recorded Date/ Time Do you have a Healthcare Power of Field Associate? Yes November 29, 2024 4:45pm Advance Directives Yes June 09, 2021 11:35am Advance Directive Response Recorded Date/ Time Do you have a Healthcare Power of Field Associate? Yes November 29, 2024 11:07pm Advance Directives Yes June 09, 2021 11:35am Advance Directive Response Recorded Date/ Time Do you have a Healthcare Pow er of Field Associate? Yes November 29, 2024 11:07pm Do you have a Healthcare Pow er of Field Associate? Yes December 04, 2024 11:32am Name of Medical Power of Field Associate Yumiko Elena, daughter December 04, 2024 11:32am Advance Directives Yes June 09, 2021 11:35am Advance Directive Response Recorded Date/ Time Do you have a Healthcare Pow er of Field Associate? Yes November 29, 2024 11:07pm Do you have a Healthcare Pow er of Field Associate? Yes December 04, 2024 11:32am Name of Medical Power of Field Associate Yumiko Elena, daughter December 04, 2024 11:32am Do you have a Healthcare Pow er of Field Associate? No December 23, 2024 9:28pm Advance Directives Yes June 09, 2021 11:35am Advance Directive Response Recorded Date/ Time Do you have a Healthcare Pow er of Field Associate? Yes November 29, 2024 11:07pm Do you have a Healthcare Pow er of Field Associate? No December 29, 2024 1:17pm Do you have a Healthcare Pow er of Field Associate? Yes December 04, 2024 11:32am Name of Medical Power of Field Associate Yumiko Elena, daughter December 04, 2024 11:32am Do you have a Healthcare Pow er of Field Associate? No December 23, 2024 9:28pm Advance Directives Yes June 09, 2021 11:35am Advance Directive Response Recorded Date/ Time Do you have a Healthcare Pow er of Field Associate? Yes November 29, 2024 11:07pm Do you have a Healthcare Pow er of Field Associate? Yes December 29, 2024 5:22pm Name of Medical Power of Field Associate Yumiko Elena- daughter December 29, 2024 5:22pm Do you have a Healthcare Pow er of Field Associate? Yes December 04, 2024 11:32am Name of Medical Power of Field Associate Yumiko Eelna, daughter December 04, 2024 11:32am Do you have a Healthcare Pow er of Field Associate? 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) drug therapy June 22, 2024 8:30am BRUIT July 03, 2024 12:4 1pm EORDER July 07, 2024 2:49 pm Reason for Visit Admit Date CHF (congestive heart failure) April 30, 2024 9:27am Hypoxia April 30, 2024 9:27am History of permanent cardiac pacemaker p lacement June 01, 2024 12:59pm Paroxysmal atrial fibrillation May 052024 12:59pm Sick sinus syndrome June 01, 2024 1 2:59pm USP current use of amiodarone Dewayne louiey 2024 1:19pm Pulmonary hypertension June 01 1:19pm [...] (dyspnea on exertion) November 02, 2024 9:16am USP current use of amiodarone November 02, 2024 9:16am Pulmonary hypertension November 02, 2024 9: 16am Right carotid bruit November 02, 2024 9:16a m Essential (primary) hypertension October 9:16am History of permanent cardiac pacemaker p lacement November 02, 2024 9:16am Paroxysmal atrial fibrillation November 02, 2024 9:16am Reason for Visit Admit Date WELCH (dyspnea on exertion) November 02, 2024 9:16am USP current use of amiodarone November 02, 2024 [...] 2024 2:22 am See clinical notes re: nima BECKMAN moved u p November 02, 2024 9:16am Chief Complaint Admit Date Pacer Check Remote October 16, 2024 2:00 am Pacer Check Remote October 23, 2024 2:00 am Pacer Check Remote October 27, 2024 2:22 am See clinical notes re: nima BECKMAN moved u p November 02, 2024 9:16am HYPERTENSIVE EMERGENCY AND RUE WITH RLE TREMORS. 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 November 02, 2024 [...] 9pm Hyponatremia December 03, 2024 4:0 9pm USP current use of amiodarone Augu 2024 4:09pm [...] pacemaker p lacement November 02, 2024 9:16am USP current use of amiodarone November 02, 2024 [...] Left atrial enlargement December 03, 2024 4:09pm 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 Augu st 2024 [...] :50am DEBILITY December 14, 2024 9: 06am SOB December 23, 2024 7: 04pm Reason for Visit Admit Date Essential (primary) hypertension October 9:16am History of permanent cardiac pacemaker p lacement November 02, 2024 9:16am USP current use of amiodarone November 02, 2024 9:16am Paroxysmal atrial fibrillation November 02, 2024 9:16am Pulmonary hypertension November 02, 2024 9: 16am WELCH (dyspnea on exertion) November 02, 2024 9:16am Hypertensive urgency November 29, 2024 9:3 9pm Tremor November 29, 2024 9:39 pm Morbid obesity with BMI of 40.0-44.9, ad ult November 29, 2024 9:39pm Paroxysmal atrial fibrillation October 9:39pm Hypertensive emergency without congestiv e heart failure November 29, 2024 9:39pm TIA (transient ischemic attack) October 9:39pm Debility December 03, 2024 4:0 9pm Generalized weakness December 03, 2024 4: 09pm Heme positive stool December 03, 2024 4:0 9pm Hyponatremia December 03, 2024 4:0 9pm Normochromic normocytic anemia December 4:09pm Disequilibrium December 03, 2024 4:0 9pm Tremor December 03, 2024 4:0 9pm Essential (primary) hypertension December 03, 2024 4:09pm History of permanent cardiac pacemaker p lacement December 03, 2024 4:09pm Hyperlipidemia December 03, 2024 4:0 9pm Hypothyroidism December 03, 2024 4:0 9pm Left atrial enlargement December 03, 2024 4:09pm USP current use of amiodarone Augu st 2024 [...] :50am DEBILITY December 14, 2024 9: 06am SOB December 23, 2024 7: 04pm S/P [facility] 12/14December 27, 2024 1: 51pm Reason for Visit Admit Date Essential (primary) hypertension October 9:16am History of permanent cardiac pacemaker p lacement November 02, 2024 9:16am USP current use of amiodarone November 02, 2024 9:16am Paroxysmal atrial fibrillation November 02, 2024 9:16am Pulmonary hypertension November 02, 2024 9: 16am WELCH (dyspnea on exertion) November 02, 2024 9:16am Hypertensive urgency November 29, 2024 9:3 9pm Tremor November 29, 2024 9:39 pm Morbid obesity with BMI of 40.0-44.9, ad ult November 29, 2024 9:39pm Paroxysmal atrial fibrillation October 9:39pm Hypertensive emergency without congestiv e heart failure November 29, 2024 9:39pm TIA (transient ischemic attack) October 9:39pm Debility December 03, 2024 4:0 9pm Generalized weakness Kane 3rd, 2025 4: 09pm Heme positive stool December 03, 2024 4:0 9pm Hyponatremia December 03, 2024 4:0 9pm Normochromic normocytic anemia December 4:09pm Disequilibrium December 03, 2024 4:0 9pm Tremor December 03, 2024 4:0 9pm Essential (primary) hypertension December 03, 2024 4:09pm History of permanent cardiac pacemaker p lacement December 03, 2024 4:09pm Hyperlipidemia December 03, 2024 4:0 9pm Hypothyroidism December 03, 2024 4:0 9pm Left atrial enlargement December 03, 2024 4:09pm 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 Augu st 2024 4:09pm Moderate left ventricular hypertrophy Au 2024 4:09pm Morbid obesity with BMI of 40.0-44.9, ad ult December 03, 2024 4:09pm Paroxysmal atrial fibrillation December 4:09pm Pulmonary hypertension December 03, 2024 4:09pm Tricuspid regurgitation December 03, 2024 4:09pm TIA (transient ischemic attack) December 032024 4:09pm Essential (primary) hypertension December 27, 2024 1:51pm History of permanent cardiac pacemaker p lacement December 27, 2024 1:51pm 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 Augu st 2024 1:51pm Paroxysmal atrial fibrillation December 272024 1:51pm Pulmonary hypertension December 27, 2024 1:51pm WELCH (dyspnea on exertion) December 27, 2 025 1:51pm Chief Complaint Admit Date Pacer Check Remote [...] :50am DEBILITY December 14, 2024 9: 06am SOB December 23, 2024 7: 04pm S/P [facility] 12/14December 27, 2024 1: 51pm CHF EXACERBATION December 29, 2024 4: 24pm Chief Complaint Admit Date Pacer Check Remote [...] :50am DEBILITY December 14, 2024 9: 06am SOB December 23, 2024 7: 04pm S/P [facility] 12/14December 27, 2024 1: 51pm CHF EXACERBATION December 29, 2024 4: 24pm CHF EXACERBATION December 29, 2024 4: 31pm CHF EXACERBATION December 30, 2024 11 :35am CHF EXACERBATION December 31, 2024 1: 30pm CHF EXACERBATION January 01, 2025 12:16pm Reason for Visit Admit Date Essential (primary) hypertension October 9:16am History of permanent cardiac pacemaker p lacement November 02, 2024 9:16am USP current use of amiodarone November 02, 2024 9:16am Paroxysmal atrial fibrillation November 02, 2024 9:16am Pulmonary hypertension November 02, 2024 9: 16am WELCH (dyspnea on exertion) November 02, 2024 9:16am Hypertensive urgency November 29, 2024 9:3 9pm Tremor November 29, 2024 9:39 pm Morbid obesity with BMI of 40.0-44.9, ad ult November 29, 2024 9:39pm Paroxysmal atrial fibrillation October 9:39pm Hypertensive emergency without congestiv e heart failure November 29, 2024 9:39pm TIA (transient ischemic attack) October 9:39pm Debility December 03, 2024 4:0 9pm Generalized weakness December 03, 2024 4: 09pm Heme positive stool December 03, 2024 4:0 9pm Hyponatremia December 03, 2024 4:0 9pm Normochromic normocytic anemia December 4:09pm Disequilibrium December 03, 2024 4:0 9pm Tremor December 03, 2024 4:0 9pm Essential (primary) hypertension December 03, 2024 4:09pm History of permanent cardiac pacemaker p lacement December 03, 2024 4:09pm Hyperlipidemia December 03, 2024 4:0 9pm Hypothyroidism December 03, 2024 4:0 9pm Left atrial enlargement December 03, 2024 4:09pm USP current use of amiodarone Augu st 2024 4:09pm Moderate left ventricular hypertrophy Au 2024 4:09pm Morbid obesity with BMI of 40.0-44.9, ad ult December 03, 2024 4:09pm Paroxysmal atrial fibrillation December 4:09pm Pulmonary hypertension December 03, 2024 4:09pm Tricuspid regurgitation December 03, 2024 4:09pm TIA (transient ischemic attack) December 032024 4:09pm Essential (primary) hypertension December 27, 2024 1:51pm History of permanent cardiac pacemaker p lacement December 27, 2024 1:51pm 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 Augu st 2024 1:51pm Paroxysmal atrial fibrillation December 272024 1:51pm Pulmonary hypertension December 27, 2024 1:51pm WELCH (dyspnea on exertion) December 27 1:51pm Acute exacerbation of CHF (congestive he art failure) December 29, 2024 4:24pm Chief Complaint Admit Date Pacer Check Remote [...] :50am DEBILITY December 14, 2024 9: 06am SOB December 23, 2024 7: 04pm S/P [facility] 12/14December 27, 2024 1: 51pm CHF EXACERBATION December 29, 2024 4: 24pm CHF EXACERBATION December 29, 2024 4: 31pm CHF EXACERBATION December 30, 2024 11 :35am CHF EXACERBATION December 31, 2024 1: 30pm CHF EXACERBATION January 01, 2025 12:16pm Pacer Check Remote January 26, 2025 2:00am Chief Complaint Admit Date Pacer Check Remote [...] :50am DEBILITY December 14, 2024 9: 06am SOB December 23, 2024 7: 04pm S/P [facility] 12/14December 27, 2024 1: 51pm CHF EXACERBATION December 29, 2024 4: 24pm CHF EXACERBATION December 29, 2024 4: 31pm CHF EXACERBATION December 30, 2024 11 :35am CHF EXACERBATION December 31, 2024 1: 30pm CHF EXACERBATION January 01, 2025 12:16pm Pacer Check Remote January 26, 2025 2:00am Noise on RA and RV leads/KRR @ 2:15 Octo 2024 1:52pm SOB/FATIGUE/LISA @ 2 February 05, 2025 1: 53pm E-ORDER February 05, 2025 3: 00pm Reason for Visit Admit Date WELCH (dyspnea on exertion) November 02, 2024 9:16am Essential (primary) hypertension October 9:16am History of permanent cardiac pacemaker p lacement November 02, 2024 9:16am USP current use of amiodarone November 02, 2024 9:16am Paroxysmal atrial fibrillation November 02, 2024 9:16am Pulmonary hypertension November 02, 2024 9: 16am Paroxysmal atrial fibrillation October 9:39pm Hypertensive urgency November 29, 2024 9:3 9pm Tremor November 29, 2024 9:39 pm Morbid obesity with BMI of 40.0-44.9, ad ult November 29, 2024 9:39pm Hypertensive emergency without congestiv e heart failure November 29, 2024 9:39pm TIA (transient ischemic attack) October 9:39pm Debility December 03, 2024 4:0 9pm Generalized weakness December 03, 2024 4: 09pm Heme positive stool December 03, 2024 4:0 9pm Hyponatremia December 03, 2024 4:0 9pm Normochromic normocytic anemia December 4:09pm Essential (primary) hypertension December 03, 2024 4:09pm History of permanent cardiac pacemaker p lacement December 03, 2024 4:09pm 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 Augu st 2024 4:09pm Paroxysmal atrial fibrillation December 4:09pm Pulmonary hypertension December 03, 2024 4:09pm Disequilibrium December 03, 2024 4:0 9pm Tremor December 03, 2024 4:0 9pm Hyperlipidemia December 03, 2024 4:0 9pm Hypothyroidism December 03, 2024 4:0 9pm Left atrial enlargement December 03, 2024 4:09pm Moderate left ventricular hypertrophy Au 2024 4:09pm Morbid obesity with BMI of 40.0-44.9, ad ult December 03, 2024 4:09pm Tricuspid regurgitation December 03, 2024 4:09pm TIA (transient ischemic attack) December 032024 4:09pm WELCH (dyspnea on exertion) December 27, 2 025 1:51pm Essential (primary) hypertension December 27, 2024 1:51pm History of permanent cardiac pacemaker p lacement December 27, 2024 1:51pm USP current use of amiodarone Augu st 2024 1:51pm Paroxysmal atrial fibrillation December 272024 1:51pm Pulmonary hypertension December 27, 2024 1:51pm Acute exacerbation of CHF (congestive he art failure) December 29, 2024 4:24pm Sick sinus syndrome February 05, 2025 1: 52pm History of permanent cardiac pacemaker p lacement February 05, 2025 1:52pm WELCH (dyspnea on exertion) February 05, 2 025 1:53pm Fatigue February 05, 2025 1: 53pm Right carotid bruit February 05, 2025 1: 53pm Essential (primary) hypertension February 05, 2025 1:53pm History of permanent cardiac pacemaker p lacement February 05, 2025 1:53pm USP current use of amiodarone Octo 2024 1:53pm Paroxysmal atrial fibrillation February 052024 1:53pm Pulmonary hypertension February 05, 2025 1:53pm Chief Complaint Admit Date Pacer Check Remote [...] :50am DEBILITY December 14, 2024 9: 06am SOB December 23, 2024 7: 04pm S/P [facility] 12/14December 27, 2024 1: 51pm CHF EXACERBATION December 29, 2024 4: 24pm CHF EXACERBATION December 29, 2024 4: 31pm CHF EXACERBATION December 30, 2024 11 :35am CHF EXACERBATION December 31, 2024 1: 30pm CHF EXACERBATION January 01, 2025 12:16pm Pacer Check Remote January 26, 2025 2:00am Pacer Check Remote February 05, 2025 9: 00am Noise on RA and RV leads/KRR @ 2:15 Octo 2024 1:52pm SOB/FATIGUE/LISA @ 2 February 05, 2025 1: 53pm E-ORDER February 05, 2025 3: 00pm Medications Administered Section Inactive Administered Medications - up to 3 most recent administrations Medication Order MAR Action Action Date Dose Rate Site benzocaine 20% 1 [place] (TOPEX) 1 [place], TOPICAL, DIRECTED, Starting on Kaye 01/08/22 at [...] 01/08/22 at 1430, Until Kaye 01/08/22 at 182, DOSING DIRECTED BY PHYSICIAN FOR PROCEDURAL SEDATION [...] pain Procedures CONSULT TO GENERAL SURGERY OFFICE/OUTPATIENT [facility] 60 MINUTES Michael Puga, DO [address] [place] [address] Referral ID Status Reason Start Date Expiration Date Visits Requested Visits Authorized [id number] Authorized PCP Requested Referral 4 03/01/2025 1 [...] section and content) DATE CREATED AUTHOR 12/28/2020 [facility] DATE CREATED AUTHOR AUTHOR'S ORGANIZ ATION 04/06/2024 [facility] DATE CREATED AUTHOR AUTHOR'S ORGANIZ ATION 02/05/2025 [facility] DATE CREATED AUTHOR AUTHOR'S ORGANIZ ATION 03/09/2025 [facility] DATE CREATED AUTHOR AUTHOR'S ORGANIZ ATION 03/10/2025 [facility] Source Comments (unrecognize d section and content) In the event this informatio n is protected by the Federal Confidentiality of Alcohol and Drug Abuse Patient Records regulations: The Federal rules restrict any use of the information to criminally investigate or prosecute any alcohol or drug abuse patient.[facility] the event this information is protected by the Federal Confidentiality of Alcohol and Drug Abuse Patient Records regulations: The Federal rules restrict any use of the information to criminally investigate or prosecute any alcohol or drug abuse patient.[facility] CenterIn the event this information is protected by the Federal Confidentiality of Alcohol and Drug Abuse Patient Records regulations: The Federal rules restrict any use of the information to criminally investigate or prosecute any alcohol or drug abuse patient.[facility] CenterIn the event this information is protected by the Federal Confidentiality of Alcohol and Drug Abuse Patient Records regulations: The Federal rules restrict any use of the information to criminally investigate or prosecute any alcohol or drug abuse patient.[facility] CenterIn the event this information is protected by the Federal Confidentiality of Alcohol and Drug Abuse Patient Records regulations: The Federal rules restrict any use of the information to criminally investigate or prosecute any alcohol or drug abuse patient.[facility] CenterIn the event this information is protected by the Federal Confidentiality of Alcohol and Drug Abuse Patient Records regulations: The Federal rules restrict any use of the information to criminally investigate or prosecute any alcohol or drug abuse patient.[facility] CenterIn the event this information is protected by the Federal Confidentiality of Alcohol and Drug Abuse Patient Records regulations: The Federal rules restrict any use of the information to criminally investigate or prosecute any alcohol or drug abuse patient.[facility] CenterIn the event this information is protected by the Federal Confidentiality of Alcohol and Drug Abuse Patient Records regulations: The Federal rules restrict any use of the information to criminally investigate or prosecute any alcohol or drug abuse patient.[facility] CenterIn the event this information is protected by the Federal Confidentiality of Alcohol and Drug Abuse Patient Records regulations: The Federal rules restrict any use of the information to criminally investigate or prosecute any alcohol or drug abuse patient.[facility] CenterIn the event this information is protected by the Federal Confidentiality of Alcohol and Drug Abuse Patient Records regulations: The Federal rules restrict any use of the information to criminally investigate or prosecute any alcohol or drug abuse patient.[facility] CenterIn the event this information is protected by the Federal Confidentiality of Alcohol and Drug Abuse Patient Records regulations: The Federal rules restrict any use of the information to criminally investigate or prosecute any alcohol or drug abuse patient.[facility] CenterIn the event this information is protected by the Federal Confidentiality of Alcohol and Drug Abuse Patient Records regulations: The Federal rules restrict any use of the information to criminally investigate or prosecute any alcohol or drug abuse patient.[facility] CenterIn the event this information is protected by the Federal Confidentiality of Alcohol and Drug Abuse Patient Records regulations: The Federal rules restrict any use of the information to criminally investigate or prosecute any alcohol or drug abuse patient.[facility] CenterIn the event this information is protected by the Federal Confidentiality of Alcohol and Drug Abuse Patient Records regulations: The Federal rules restrict any use of the information to criminally investigate or prosecute any alcohol or drug abuse patient.[facility] CenterIn the event this information is protected by the Federal Confidentiality of Alcohol and Drug Abuse Patient Records regulations: The Federal rules restrict any use of the information to criminally investigate or prosecute any alcohol or drug abuse patient.[facility] CenterIn the event this information is protected by the Federal Confidentiality of Alcohol and Drug Abuse Patient Records regulations: The Federal rules restrict any use of the information to criminally investigate or prosecute any alcohol or drug abuse patient.[facility] CenterIn the event this information is protected by the Federal Confidentiality of Alcohol and Drug Abuse Patient Records regulations: The Federal rules restrict any use of the information to criminally investigate or prosecute any alcohol or drug abuse patient.[facility] CenterIn the event this information is protected by the Federal Confidentiality of Alcohol and Drug Abuse Patient Records regulations: The Federal rules restrict any use of the information to criminally investigate or prosecute any alcohol or drug abuse patient.[facility] CenterIn the event this information is protected by the Federal Confidentiality of Alcohol and Drug Abuse Patient Records regulations: The Federal rules restrict any use of the information to criminally investigate or prosecute any alcohol or drug abuse patient.[facility] CenterIn the event this information is protected by the Federal Confidentiality of Alcohol and Drug Abuse Patient Records regulations: The Federal rules restrict any use of the information to criminally investigate or prosecute any alcohol or drug abuse patient.[facility] CenterIn the event this information is protected by the Federal Confidentiality of Alcohol and Drug Abuse Patient Records regulations: The Federal rules restrict any use of the information to criminally investigate or prosecute any alcohol or drug abuse patient.[facility] CenterIn the event this information is protected by the Federal Confidentiality of Alcohol and Drug Abuse Patient Records regulations: The Federal rules restrict any use of the information to criminally investigate or prosecute any alcohol or drug abuse patient.[facility] CenterIn the event this information is protected by the Federal Confidentiality of Alcohol and Drug Abuse Patient Records regulations: The Federal rules restrict any use of the information to criminally investigate or prosecute any alcohol or drug abuse patient.[facility] CenterIn the event this information is protected by the Federal Confidentiality of Alcohol and Drug Abuse Patient Records regulations: The Federal rules restrict any use of the information to criminally investigate or prosecute any alcohol or drug abuse patient.[facility] CenterIn the event this information is protected by the Federal Confidentiality of Alcohol and Drug Abuse Patient Records regulations: The Federal rules restrict any use of the information to criminally investigate or prosecute any alcohol or drug abuse patient.[facility] CenterIn the event this information is protected by the Federal Confidentiality of Alcohol and Drug Abuse Patient Records regulations: The Federal rules restrict any use of the information to criminally investigate or prosecute any alcohol or drug abuse patient.[facility] CenterIn the event this information is protected by the Federal Confidentiality of Alcohol and Drug Abuse Patient Records regulations: The Federal rules restrict any use of the information to criminally investigate or prosecute any alcohol or drug abuse patient.[facility] CenterIn the event this information is protected by the Federal Confidentiality of Alcohol and Drug Abuse Patient Records regulations: The Federal rules restrict any use of the information to criminally investigate or prosecute any alcohol or drug abuse patient.[facility] CenterIn the event this information is protected by the Federal Confidentiality of Alcohol and Drug Abuse Patient Records regulations: The Federal rules restrict any use of the information to criminally investigate or prosecute any alcohol or drug abuse patient.[facility] CenterIn the event this information is protected by the Federal Confidentiality of Alcohol and Drug Abuse Patient Records regulations: The Federal rules restrict any use of the information to criminally investigate or prosecute any alcohol or drug abuse patient.[facility] CenterIn the event this information is protected by the Federal Confidentiality of Alcohol and Drug Abuse Patient Records regulations: The Federal rules restrict any use of the information to criminally investigate or prosecute any alcohol or drug abuse patient.[facility] CenterIn the event this information is protected by the Federal Confidentiality of Alcohol and Drug Abuse Patient Records regulations: The Federal rules restrict any use of the information to criminally investigate or prosecute any alcohol or drug abuse patient.[facility] CenterIn the event this information is protected by the Federal Confidentiality of Alcohol and Drug Abuse Patient Records regulations: The Federal rules restrict any use of the information to criminally investigate or prosecute any alcohol or drug abuse patient.[facility] CenterIn the event this information is protected by the Federal Confidentiality of Alcohol and Drug Abuse Patient Records regulations: The Federal rules restrict any use of the information to criminally investigate or prosecute any alcohol or drug abuse patient.[facility] CenterIn the event this information is protected by the Federal Confidentiality of Alcohol and Drug Abuse Patient Records regulations: The Federal rules restrict any use of the information to criminally investigate or prosecute any alcohol or drug abuse patient.[facility] CenterIn the event this information is protected by the Federal Confidentiality of Alcohol and Drug Abuse Patient Records regulations: The Federal rules restrict any use of the information to criminally investigate or prosecute any alcohol or drug abuse patient.[facility] [facility] Center[facility] the event this information is protected by the Federal Confidentiality of Alcohol and Drug Abuse Patient Records regulations: The Federal rules restrict any use of the information to criminally investigate or prosecute any alcohol or drug abuse patient.[facility] CenterIn the event this information is protected by the Federal Confidentiality of Alcohol and Drug Abuse Patient Records regulations: The Federal rules restrict any use of the information to criminally investigate or prosecute any alcohol or drug abuse patient.[facility] CenterIn the event this information is protected by the Federal Confidentiality of Alcohol and Drug Abuse Patient Records regulations: The Federal rules restrict any use of the information to criminally investigate or prosecute any alcohol or drug abuse patient.[facility] CenterIn the event this information is protected by the Federal Confidentiality of Alcohol and Drug Abuse Patient Records regulations: The Federal rules restrict any use of the information to criminally investigate or prosecute any alcohol or drug abuse patient.[facility] CenterIn the event this information is protected by the Federal Confidentiality of Alcohol and Drug Abuse Patient Records regulations: The Federal rules restrict any use of the information to criminally investigate or prosecute any alcohol or drug abuse patient.[facility] CenterIn the event this information is protected by the Federal Confidentiality of Alcohol and Drug Abuse Patient Records regulations: The Federal rules restrict any use of the information to criminally investigate or prosecute any alcohol or drug abuse patient.[facility] CenterIn the event this information is protected by the Federal Confidentiality of Alcohol and Drug Abuse Patient Records regulations: The Federal rules restrict any use of the information to criminally investigate or prosecute any alcohol or drug abuse patient.[facility] CenterIn the event this information is protected by the Federal Confidentiality of Alcohol and Drug Abuse Patient Records regulations: The Federal rules restrict any use of the information to criminally investigate or prosecute any alcohol or drug abuse patient.[facility] CenterIn the event this information is protected by the Federal Confidentiality of Alcohol and Drug Abuse Patient Records regulations: The Federal rules restrict any use of the information to criminally investigate or prosecute any alcohol or drug abuse patient.[facility] CenterIn the event this information is protected by the Federal Confidentiality of Alcohol and Drug Abuse Patient Records regulations: The Federal rules restrict any use of the information to criminally investigate or prosecute any alcohol or drug abuse patient.[facility] CenterIn the event this information is protected by the Federal Confidentiality of Alcohol and Drug Abuse Patient Records regulations: The Federal rules restrict any use of the information to criminally investigate or prosecute any alcohol or drug abuse patient.[facility] CenterIn the event this information is protected by the Federal Confidentiality of Alcohol and Drug Abuse Patient Records regulations: The Federal rules restrict any use of the information to criminally investigate or prosecute any alcohol or drug abuse patient.[facility] CenterIn the event this information is protected by the Federal Confidentiality of Alcohol and Drug Abuse Patient Records regulations: The Federal rules restrict any use of the information to criminally investigate or prosecute any alcohol or drug abuse patient.[facility] CenterIn the event this information is protected by the Federal Confidentiality of Alcohol and Drug Abuse Patient Records regulations: The Federal rules restrict any use of the information to criminally investigate or prosecute any alcohol or drug abuse patient.[facility] CenterIn the event this information is protected by the Federal Confidentiality of Alcohol and Drug Abuse Patient Records regulations: The Federal rules restrict any use of the information to criminally investigate or prosecute any alcohol or drug abuse patient.[facility] CenterIn the event this information is protected by the Federal Confidentiality of Alcohol and Drug Abuse Patient Records regulations: The Federal rules restrict any use of the information to criminally investigate or prosecute any alcohol or drug abuse patient.[facility] CenterIn the event this information is protected by the Federal Confidentiality of Alcohol and Drug Abuse Patient Records regulations: The Federal rules restrict any use of the information to criminally investigate or prosecute any alcohol or drug abuse patient.[facility] CenterIn the event this information is protected by the Federal Confidentiality of Alcohol and Drug Abuse Patient Records regulations: The Federal rules restrict any use of the information to criminally investigate or prosecute any alcohol or drug abuse patient.[facility] CenterIn the event this information is protected by the Federal Confidentiality of Alcohol and Drug Abuse Patient Records regulations: The Federal rules restrict any use of the information to criminally investigate or prosecute any alcohol or drug abuse patient.[facility] CenterIn the event this information is protected by the Federal Confidentiality of Alcohol and Drug Abuse Patient Records regulations: The Federal rules restrict any use of the information to criminally investigate or prosecute any alcohol or drug abuse patient.[facility] CenterIn the event this information is protected by the Federal Confidentiality of Alcohol and Drug Abuse Patient Records regulations: The Federal rules restrict any use of the information to criminally investigate or prosecute any alcohol or drug abuse patient.[facility] CenterIn the event this information is protected by the Federal Confidentiality of Alcohol and Drug Abuse Patient Records regulations: The Federal rules restrict any use of the information to criminally investigate or prosecute any alcohol or drug abuse patient.[facility] CenterIn the event this information is protected by the Federal Confidentiality of Alcohol and Drug Abuse Patient Records regulations: The Federal rules restrict any use of the information to criminally investigate or prosecute any alcohol or drug abuse patient.[facility] CenterIn the event this information is protected by the Federal Confidentiality of Alcohol and Drug Abuse Patient Records regulations: The Federal rules restrict any use of the information to criminally investigate or prosecute any alcohol or drug abuse patient.[facility] CenterIn the event this information is protected by the Federal Confidentiality of Alcohol and Drug Abuse Patient Records regulations: The Federal rules restrict any use of the information to criminally investigate or prosecute any alcohol or drug abuse patient.[facility] CenterIn the event this information is protected by the Federal Confidentiality of Alcohol and Drug Abuse Patient Records regulations: The Federal rules restrict any use of the information to criminally investigate or prosecute any alcohol or drug abuse patient.[facility] CenterIn the event this information is protected by the Federal Confidentiality of Alcohol and Drug Abuse Patient Records regulations: The Federal rules restrict any use of the information to criminally investigate or prosecute any alcohol or drug abuse patient.[facility] CenterIn the event this information is protected by the Federal Confidentiality of Alcohol and Drug Abuse Patient Records regulations: The Federal rules restrict any use of the information to criminally investigate or prosecute any alcohol or drug abuse patient.[facility] CenterIn the event this information is protected by the Federal Confidentiality of Alcohol and Drug Abuse Patient Records regulations: The Federal rules restrict any use of the information to criminally investigate or prosecute any alcohol or drug abuse patient.[facility] CenterIn the event this information is protected by the Federal Confidentiality of Alcohol and Drug Abuse Patient Records regulations: The Federal rules restrict any use of the information to criminally investigate or prosecute any alcohol or drug abuse patient.[facility] CenterIn the event this information is protected by the Federal Confidentiality of Alcohol and Drug Abuse Patient Records regulations: The Federal rules restrict any use of the information to criminally investigate or prosecute any alcohol or drug abuse patient.[facility] CenterIn the event this information is protected by the Federal Confidentiality of Alcohol and Drug Abuse Patient Records regulations: The Federal rules restrict any use of the information to criminally investigate or prosecute any alcohol or drug abuse patient.[facility] CenterIn the event this information is protected by the Federal Confidentiality of Alcohol and Drug Abuse Patient Records regulations: The Federal rules restrict any use of the information to criminally investigate or prosecute any alcohol or drug abuse patient.[facility] CenterIn the event this information is protected by the Federal Confidentiality of Alcohol and Drug Abuse Patient Records regulations: The Federal rules restrict any use of the information to criminally investigate or prosecute any alcohol or drug abuse patient.[facility] CenterIn the event this information is protected by the Federal Confidentiality of Alcohol and Drug Abuse Patient Records regulations: The Federal rules restrict any use of the information to criminally investigate or prosecute any alcohol or drug abuse patient.[facility] CenterIn the event this information is protected by the Federal Confidentiality of Alcohol and Drug Abuse Patient Records regulations: The Federal rules restrict any use of the information to criminally investigate or prosecute any alcohol or drug abuse patient.[facility] CenterIn the event this information is protected by the Federal Confidentiality of Alcohol and Drug Abuse Patient Records regulations: The Federal rules restrict any use of the information to criminally investigate or prosecute any alcohol or drug abuse patient.[facility] CenterIn the event this information is protected by the Federal Confidentiality of Alcohol and Drug Abuse Patient Records regulations: The Federal rules restrict any use of the information to criminally investigate or prosecute any alcohol or drug abuse patient.[facility] CenterIn the event this information is protected by the Federal Confidentiality of Alcohol and Drug Abuse Patient Records regulations: The Federal rules restrict any use of the information to criminally investigate or prosecute any alcohol or drug abuse patient.[facility] CenterIn the event this information is protected by the Federal Confidentiality of Alcohol and Drug Abuse Patient Records regulations: The Federal rules restrict any use of the information to criminally investigate or prosecute any alcohol or drug abuse patient.[facility] CenterIn the event this information is protected by the Federal Confidentiality of Alcohol and Drug Abuse Patient Records regulations: The Federal rules restrict any use of the information to criminally investigate or prosecute any alcohol or drug abuse patient.[facility] CenterIn the event this information is protected by the Federal Confidentiality of Alcohol and Drug Abuse Patient Records regulations: The Federal rules restrict any use of the information to criminally investigate or prosecute any alcohol or drug abuse patient.[facility] CenterIn the event this information is protected by the Federal Confidentiality of Alcohol and Drug Abuse Patient Records regulations: The Federal rules restrict any use of the information to criminally investigate or prosecute any alcohol or drug abuse patient.[facility] CenterIn the event this information is protected by the Federal Confidentiality of Alcohol and Drug Abuse Patient Records regulations: The Federal rules restrict any use of the information to criminally investigate or prosecute any alcohol or drug abuse patient.[facility] CenterIn the event this information is protected by the Federal Confidentiality of Alcohol and Drug Abuse Patient Records regulations: The Federal rules restrict any use of the information to criminally investigate or prosecute any alcohol or drug abuse patient.[facility] CenterIn the event this information is protected by the Federal Confidentiality of Alcohol and Drug Abuse Patient Records regulations: The Federal rules restrict any use of the information to criminally investigate or prosecute any alcohol or drug abuse patient.[facility] CenterIn the event this information is protected by the Federal Confidentiality of Alcohol and Drug Abuse Patient Records regulations: The Federal rules restrict any use of the information to criminally investigate or prosecute any alcohol or drug abuse patient.[facility] CenterIn the event this information is protected by the Federal Confidentiality of Alcohol and Drug Abuse Patient Records regulations: The Federal rules restrict any use of the information to criminally investigate or prosecute any alcohol or drug abuse patient.[facility] CenterIn the event this information is protected by the Federal Confidentiality of Alcohol and Drug Abuse Patient Records regulations: The Federal rules restrict any use of the information to criminally investigate or prosecute any alcohol or drug abuse patient.[facility] CenterIn the event this information is protected by the Federal Confidentiality of Alcohol and Drug Abuse Patient Records regulations: The Federal rules restrict any use of the information to criminally investigate or prosecute any alcohol or drug abuse patient.[facility] CenterIn the event this information is protected by the Federal Confidentiality of Alcohol and Drug Abuse Patient Records regulations: The Federal rules restrict any use of the information to criminally investigate or prosecute any alcohol or drug abuse patient.[facility] CenterIn the event this information is protected by the Federal Confidentiality of Alcohol and Drug Abuse Patient Records regulations: The Federal rules restrict any use of the information to criminally investigate or prosecute any alcohol or drug abuse patient.[facility] CenterIn the event this information is protected by the Federal Confidentiality of Alcohol and Drug Abuse Patient Records regulations: The Federal rules restrict any use of the information to criminally investigate or prosecute any alcohol or drug abuse patient.[facility] CenterIn the event this information is protected by the Federal Confidentiality of Alcohol and Drug Abuse Patient Records regulations: The Federal rules restrict any use of the information to criminally investigate or prosecute any alcohol or drug abuse patient.[facility] CenterIn the event this information is protected by the Federal Confidentiality of Alcohol and Drug Abuse Patient Records regulations: The Federal rules restrict any use of the information to criminally investigate or prosecute any alcohol or drug abuse patient.[facility] CenterIn the event this information is protected by the Federal Confidentiality of Alcohol and Drug Abuse Patient Records regulations: The Federal rules restrict any use of the information to criminally investigate or prosecute any alcohol or drug abuse patient.[facility]In the event this information is protected by the Federal Confidentiality of Alcohol and Drug Abuse Patient Records regulations: The Federal rules restrict any use of the information to criminally investigate or prosecute any alcohol or drug abuse patient.[facility]In the event this information is protected by the Federal Confidentiality of Alcohol and Drug Abuse Patient Records regulations: The Federal rules restrict any use of the information to criminally investigate or prosecute any alcohol or drug abuse patient.[facility]In the event this information is protected by the Federal Confidentiality of Alcohol and Drug Abuse Patient Records regulations: The Federal rules restrict any use of the information to criminally investigate or prosecute any alcohol or drug abuse patient.[facility] CenterIn the event this information is protected by the Federal Confidentiality of Alcohol and Drug Abuse Patient Records regulations: The Federal rules restrict any use of the information to criminally investigate or prosecute any alcohol or drug abuse patient.[facility] CenterIn the event this information is protected by the Federal Confidentiality of Alcohol and Drug Abuse Patient Records regulations: The Federal rules restrict any use of the information to criminally investigate or prosecute any alcohol or drug abuse patient.[facility] CenterIn the event this information is protected by the Federal Confidentiality of Alcohol and Drug Abuse Patient Records regulations: The Federal rules restrict any use of the information to criminally investigate or prosecute any alcohol or drug abuse patient.[facility] CenterIn the event this information is protected by the Federal Confidentiality of Alcohol and Drug Abuse Patient Records regulations: The Federal rules restrict any use of the information to criminally investigate or prosecute any alcohol or drug abuse patient.[facility] CenterIn the event this information is protected by the Federal Confidentiality of Alcohol and Drug Abuse Patient Records regulations: The Federal rules restrict any use of the information to criminally investigate or prosecute any alcohol or drug abuse patient.[facility] CenterIn the event this information is protected by the Federal Confidentiality of Alcohol and Drug Abuse Patient Records regulations: The Federal rules restrict any use of the information to criminally investigate or prosecute any alcohol or drug abuse patient.[facility] CenterIn the event this information is protected by the Federal Confidentiality of Alcohol and Drug Abuse Patient Records regulations: The Federal rules restrict any use of the information to criminally investigate or prosecute any alcohol or drug abuse patient.[facility] CenterIn the event this information is protected by the Federal Confidentiality of Alcohol and Drug Abuse Patient Records regulations: The Federal rules restrict any use of the information to criminally investigate or prosecute any alcohol or drug abuse patient.[facility] Reason for Visit (unrecogniz ed section and content) Reason Comments PT Eval Specialty Diagnoses / Procedures Referred By Contac t Referred To Contact Physical Therapy / PHYSICAL THERAPY Diagnoses CONSULT/WEAKNESS Procedures NEW RS PT ORTH Arlene Bruce [facility] [address] [facility] [place] [address] [place] [address] Phone: tel: fax: Sarah Merchant, PT [address] [place] [address] Phone: tel: Referral ID Status Reason Start Date Expiration Date V isits Requested Visits Authorized [id number] Authorized 09/07/2024 05/02/2025 99 99 Reason Comments Physical Therapy Specialty Diagnoses / Procedures Referred By Contac t Referred To Contact Physical Therapy / PHYSICAL THERAPY Diagnoses Right knee Procedures NEW RS PT ORTH [facility] Chichi, Geeta Anna, PA-C [address] [place] [address] Sarah Merchant, PT [address] [place] [address] Referral ID Status Reason Start Date Expiration Date V isits Requested Visits Authorized [id number] Authorized 11/15/2023 05/02/2024 99 99 Reason Comments [...] Health Navigation Outreach 06/02/2022 Healthy at Home [facility] Center Reason Comments Extreme fatigue Reason Comments [...] PRE&POST-BRNCDILAT ADMN Michael Puga L, DO [address] [place] [address] Respiratory [place] [address] [place] [address] Referral ID Status Reason Start Date Expiration Date V isits Requested Visits Authorized [id number] Closed Auto-Generate d Referral 12/22/2022 01/21/2024 1 1 Reason Comments Orders Reason Onset Date Comments F/U 3 Month Immunizations 04/05/2023 Flu vaccination Reason Onset Date Comments Transition Of Care 10/04/2023 TCM / Manny DC 6//OON Reason Comments HH: orders, update, medications Reason [...] pain. Specialty Diagnoses / Procedures Referred By Contreyna t Referred To Contact General Surgery Diagnoses Epigastric abdominal pain Procedures CONSULT TO GENERAL SURGERY OFFICE/OUTPATIENT [facility] HIGH MDM 60 MINUTES Michael Puga, DO [address] [place] [address] Referral ID Status Reason Start Date Expiration Date V isits Requested Visits Authorized [id number] Closed PCP Requested Referral 03/01/2024 03/01/2025 1 [...] Date Comments Refill Request 11/27/2024 Reason Comments Longterm Plan of Care Reason Comments POC - PT Reason Comments Consult Blood in stool Reason Comments New Patient Ref Dr. Alcala, APPLIQUE CUTTER Care Teams (unrecognized sec tion and content) Washtub Worker Helper Relationship Specialty Start Date End Date Michael Puga DO [address] [place], [place] [id number] PCP - General Family Practice 05/06/16 Washtub Worker Helper Relationship Specialty Start Date End Date Michael Puga, DO [address] [place] [address] PCP - General Family Practice 05/06/16 Washtub Worker Helper Relationship Specialty Start Date End Date Michael Puga, DO [address] [place] [address] PCP - General Family Practice 05/06/16 Washtub Worker Helper Relationship Specialty Start Date End Date Michael Puga, DO [address] [place] [address] PCP - General Family Practice 05/06/16 Washtub Worker Helper Relationship Specialty Start Date End Date Michael Puga, DO [address] [place] [address] PCP - General Family Practice 05/06/16 Washtub Worker Helper Relationship Specialty Start Date End Date Michael Puga, DO [address] [place] [address] PCP - General Family Practice 05/06/16 Washtub Worker Helper Relationship Specialty Start Date End Date Michael Puga, DO [address] [place] [address] PCP - General Family Practice 05/06/16 Washtub Worker Helper Relationship Specialty Start Date End Date Michael Puga, DO [address] [place] [address] PCP - General Family Medicine 05/06/16 Washtub Worker Helper Relationship Specialty Start Date End Date Michael Puga, DO [address] [place] [address] PCP - General Family Medicine 05/06/16 Washtub Worker Helper Relationship Specialty Start Date End Date Michael Puga, DO [address] [place] [address] PCP - General Family Medicine 05/06/16 Washtub Worker Helper Relationship Specialty Start Date End Date Michael Puga, DO [address] [place] [address] PCP - General Family Medicine 05/06/16 Washtub Worker Helper Relationship Specialty Start Date End Date Michael Puga, DO [address] [place] [address] PCP - General Family Medicine 05/06/16 Washtub Worker Helper Relationship Specialty Start Date End Date Michael Puga, DO [address] [place] [address] PCP - General Family Medicine 05/06/16 Washtub Worker Helper Relationship Specialty Start Date End Date Michael Puga DO [address] [place] [address] PCP - General Family Medicine 05/06/16 Washtub Worker Helper Relationship Specialty Start Date End Date Michael Puga DO [address] [place] [address] PCP - General Family Medicine 05/06/16 Washtub Worker Helper Relationship Specialty Start Date End Date Michael Puga DO [address] [place] [address] PCP - General Family Medicine 05/06/16 Washtub Worker Helper Relationship Specialty Start Date End Date Michael Puga DO [address] [place] [address] PCP - General Family Medicine 05/06/16 Washtub Worker Helper Relationship Specialty Start Date End Date Michael Puga DO [address] [place] [address] PCP - General Family Medicine 05/06/16 Washtub Worker Helper Relationship Specialty Start Date End Date Michael Puga DO [address] [facility] [place] [address] PCP - General Family Medicine 05/06/16 Washtub Worker Helper Relationship Specialty Start Date End Date Michael Puga DO [address] [facility] [place] [address] PCP - General Family Medicine 05/06/16 Washtub Worker Helper Relationship Specialty Start Date End Date Michael Puga DO [address] [facility] [place] [address] PCP - General Family Medicine 05/06/16 Washtub Worker Helper Relationship Specialty Start Date End Date Michael Puga DO [address] [facility] [place] [address] PCP - General Family Medicine 05/06/16 Washtub Worker Helper Relationship Specialty Start Date End Date Michael Puga DO [address] [facility] [place] [address] PCP - General Family Medicine 05/06/16 Isabella Michel, GLYNN [address] [place] [address] Primary Care Architectural Administrative Assistant 10/04/23 Washtub Worker Helper Relationship Specialty Start Date End Date Michael Puga DO [address] [facility] [place] [address] PCP - General Family Medicine 05/06/16 Isabella Michel, GLYNN [address] [place] [address] Primary Care Architectural Administrative Assistant 10/04/23 Washtub Worker Helper Relationship Specialty Start Date End Date Michael Puga, DO [address] [facility] [place] [address] PCP - General Family Medicine 05/06/16 Isabella Michel, GLYNN [address] [facility] [place] [address] Primary Care Architectural Administrative Assistant 10/04/23 Washtub Worker Helper Relationship Specialty Start Date End Date Michael Puga DO [address] [facility] [place] [address] PCP - General Family Medicine 05/06/16 Isabella Michel, RN [address] [facility] [place] [address] Primary Care Architectural Administrative Assistant 10/04/23 Washtub Worker Helper Relationship Specialty Start Date End Date Michael Puga DO [address] [facility] [place] [address] PCP - General Family Medicine 05/06/16 Isabella Michel, GLYNN [address] [facility] [place] [address] Primary Care Architectural Administrative Assistant 10/04/23 Washtub Worker Helper Relationship Specialty Start Date End Date Michael Puga DO [address] [facility] [place] [address] PCP - General Family Medicine 05/06/16 Isabella Michel, GLYNN [address] [facility] [place] [address] Primary Care Architectural Administrative Assistant 10/04/23 Washtub Worker Helper Relationship Specialty Start Date End Date Michael Puga DO [address] [facility] [place] [address] PCP - General Family Medicine 05/06/16 Washtub Worker Helper Relationship Specialty Start Date End Date Michael Puga DO [address] [facility] [place] [address] PCP - General Family Medicine 05/06/16 Washtub Worker Helper Relationship Specialty Start Date End Date Michael Puga DO [address] [facility] [place] [address] PCP - General Family Medicine 05/06/16 Washtub Worker Helper Relationship Specialty Start Date End Date Michael Puga DO [address] [facility] [place] [address] PCP - General Family Medicine 05/06/16 Washtub Worker Helper Relationship Specialty Start Date End Date Michael Puga DO [address] [facility] [place] [address] PCP - General Family Medicine 05/06/16 Washtub Worker Helper Relationship Specialty Start Date End Date Michael Puga DO [address] [facility] [place] [address] PCP - General Family Medicine 05/06/16 Washtub Worker Helper Relationship Specialty Start Date End Date Michael Puga DO [address] [facility] [place] [address] PCP - General Family Medicine 05/06/16 Washtub Worker Helper Relationship Specialty Start Date End Date Michael Puga DO [address] [facility] [place] [address] PCP - General Family Medicine 05/06/16 Washtub Worker Helper Relationship Specialty Start Date End Date Michael Puga DO [address] [facility] [place] [address] PCP - General Family Medicine 05/06/16 Washtub Worker Helper Relationship Specialty Start Date End Date Michael Puga DO [address] [facility] [place] [address] PCP - General Family Medicine 05/06/16 Washtub Worker Helper Relationship Specialty Start Date End Date Michael Puga, [address] [place] [address] PCP - General Family Medicine 05/06/16 Washtub Worker Helper Relationship Specialty Start Date End Date Michael Puga DO [address] [place] [address] PCP - General Family Medicine 05/06/16 Washtub Worker Helper Relationship Specialty Start Date End Date Michael Puga DO [address] [place] [address] PCP - General Family Medicine 05/06/16 Washtub Worker Helper Relationship Specialty Start Date End Date Michael Puga DO [address] [place] [address] PCP - General Family Medicine 05/06/16 Washtub Worker Helper Relationship Specialty Start Date End Date Michael Puga DO [address] [place] [address] PCP - General Family Medicine 05/06/16 Washtub Worker Helper Relationship Specialty Start Date End Date Michael Puga, [address] [place] [address] PCP - General Family Medicine 05/06/16 Washtub Worker Helper Relationship Specialty Start Date End Date Michael Puga DO [address] [place] [address] PCP - General Family Medicine 05/06/16 Washtub Worker Helper Relationship Specialty Start Date End Date Michael Puga, [address] [place] [address] PCP - General Family Medicine 05/06/16 Washtub Worker Helper Relationship Specialty Start Date End Date Michael Puga DO [address] [facility] [place] [address] PCP - General Family Medicine 05/06/16 Key Portillo, CENTRIFUGE 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 [address] [place] [address] Closet Builder [facility] 04/09/24 [facility]ania[facility], CENTRIFUGE 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 [address] [place] [address] [facility] Washtub Worker Helper Relationship Specialty Start Date End Date Michael Puga DO [address] [place] [address] PCP - General Family Medicine 05/06/16 Key Portillo, CENTRIFUGE 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 [address] [facility] [place] [address] [facility] 04/09/24 [facility] JerseyAsia, CENTRIFUGE 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 [address] [facility] [place] [address] [facility] 04/09/24 Washtub Worker Helper Relationship Specialty Start Date End Date Michael Puga DO [address] [place] [address] PCP - General Family Medicine 05/06/16 Key Portillo, CENTRIFUGE 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 [address] [place] [address] Closet [facility] 04/09/24 [facility] Jersey[facility], CENTRIFUGE 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 [address] [facility] [place] [address] [facility] 04/09/24 Washtub Worker Helper Relationship Specialty Start Date End Date Michael Puga DO [address] [facility] [place] [address] PCP - General Family Medicine 05/06/16 Key Portillo, CENTRIFUGE 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 [address] [facility] [place] [address] [facility] 04/09/24 [facility], CENTRIFUGE 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 [address] [facility] [place] [address] [facility] 04/09/24 Washtub Worker Helper Relationship Specialty Start Date End Date Michael Puga DO [address] [facility] [place] [address] PCP - General Family Medicine 05/06/16 Key Portillo, CENTRIFUGE 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 [address] [facility] [place] [address] [facility] 04/09/24 [facility], CENTRIFUGE 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 [address] [facility] [place] [address] [facility] 04/09/24 Washtub Worker Helper Relationship Specialty Start Date End Date Michael Puga DO [address] [facility] [place] [address] PCP - General Family Medicine 05/06/16 Key Portillo, CENTRIFUGE 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 [address] [facility] [place] [address] Closet Builder [facility] 04/09/24 Asia Rosales APRN.COUNTER WAITER [address] [facility] [place] [address] Closet Builder [facility] 04/09/24 Washtub Worker Helper Relationship Specialty Start Date End Date Michael Puga DO [address] [facility] [place] [address] PCP - General Family Medicine 05/06/16 Key Portillo, CENTRIFUGE 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 [address] [facility] [place] [address] [facility] 04/09/24 Asia Rosales, CENTRIFUGE 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 [address] [facility] [place] [address] [facility] 04/09/24 Washtub Worker Helper Relationship Specialty Start Date End Date Michael Puga DO [address] [facility] [place] [address] PCP - General Family Medicine 05/06/16 Key Portillo, CENTRIFUGE 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 [address] [facility] [place] [address] [facility] 04/09/24 Asia Rosales, CENTRIFUGE 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 [address] [facility] [place] [address] [facility] 04/09/24 Washtub Worker Helper Relationship Specialty Start Date End Date Michael Puga DO [address] [facility] [place] [address] PCP - General Family Medicine 05/06/16 Key Portillo, CENTRIFUGE 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 [address] [place] [address] [facility] 04/09/24 Asia Rosales, CENTRIFUGE 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 [address] [place] [address] [facility] 04/09/24 Washtub Worker Helper Relationship Specialty Start Date End Date Michael Puga DO [address] [place] [address] PCP - General Family Medicine 05/06/16 Key Portillo, CENTRIFUGE 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 [address] [place] [address] [facility] 04/09/24 Asia Rosales, CENTRIFUGE 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 [address] [place] [address] [facility] 04/09/24 Washtub Worker Helper Relationship Specialty Start Date End Date Michael Puga DO [address] [place] [address] PCP - General Family Medicine 05/06/16 Key Portillo, CENTRIFUGE 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 [address] [place] [address] [facility] 04/09/24 Asia Rosales, CENTRIFUGE 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 [address] [facility] [place] [address] [facility] 04/09/24 Washtub Worker Helper Relationship Specialty Start Date End Date Michael Puga DO [address] [place], [place] [address] PCP - General Family Medicine 05/06/16 Key Portillo, CENTRIFUGE 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 [address] [place], [place] [address] [facility] 04/09/24 Asia Rosales, CENTRIFUGE 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 [address] [place], [place] [address] [facility] 04/09/24 Team Status: Active Member [...] Status: Active Member Role Status Dates Dr. Mihcael Puga DO Primary Care Provider Active Start: [...] Provider Active Start: July 07, 2024 Anabel ALVA, PA Attending [...] End: July 07, 2024 Anabel ALVA, PA Referring Provider Active Start: July 07, 2024 End: July 07, 2024 Washtub Worker Helper Relationship Specialty Start Date End Date Michael Puga DO [address] [place] [address] PCP - General Family Medicine 05/06/16 SherryAsia, CENTRIFUGE 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 [address] [place] [address] [facility] 04/09/24 Washtub Worker Helper Relationship Specialty Start Date End Date Michael Puga DO [address] [facility] [place] [address] PCP - General Family Medicine 05/06/16 SherryAsia, CENTRIFUGE 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 [address] [place] [address] [facility] 04/09/24 Washtub Worker Helper Relationship Specialty Start Date End Date Michael Puga DO [address] [place] [address] PCP - General Family Medicine 05/06/16 SherryAsia, CENTRIFUGE 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 [address] [facility] [place] [address] Closet Builder [facility] 04/09/24 Washtub Worker Helper Relationship Specialty Start Date End Date Michael Puga DO [address] [facility] [place] [address] PCP - General Family Medicine 05/06/16 SherryAsia, CENTRIFUGE 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 [address] [facility] [place] [address] [facility] 04/09/24 Washtub Worker Helper Relationship Specialty Start Date End Date Michael Puga DO [address] [facility] [place] [address] PCP - General Family Medicine 05/06/16 SherryAsia, CENTRIFUGE 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 [address] [facility] [place] [address] [facility] 04/09/24 Washtub Worker Helper Relationship Specialty Start Date End Date Michael Puga DO [address] [facility] [place] [address] PCP - General Family Medicine 05/06/16 SherryAsia, CENTRIFUGE 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 [address] [facility] [place] [address] Closet Builder [facility] 04/09/24 Washtub Worker Helper Relationship Specialty Start Date End Date Michael Puga DO [address] [facility] [place] [address] PCP - General Family Medicine 05/06/16 SherryAsia, CENTRIFUGE 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 [address] [place] [address] Closet Builder [facility] 04/09/24 Washtub Worker Helper Relationship Specialty Start Date End Date Michael Puga DO [address] [place] [address] PCP - General Family Medicine 05/06/16 [facility] Jersey[facility], CENTRIFUGE 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 [address] [place] [address] [facility] 04/09/24 Washtub Worker Helper Relationship Specialty Start Date End Date Michael Puga DO [address] [place] [address] PCP - General Family Medicine 05/06/16 [facility] Jersey[facility], CENTRIFUGE 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 [address] [place] [address] Closet Builder [facility] 04/09/24 Isela Barton, CENTRIFUGE 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 [address] [place] [address] [facility] 10/16/24 Washtub Worker Helper Relationship Specialty Start Date End Date Michael Puga DO [address] [place] [address] PCP - General Family Medicine 05/06/16 [facility], CENTRIFUGE 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 [address] [place] [address] [facility] 04/09/24 Isela Barton, CENTRIFUGE 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 [address] [place] [address] [facility] 10/16/24 Team Status: Active Member Role/Relationship Status Dates Dr. Michael Puga DO Primary Care Provider Active Team Status: Inactive Member Role/Relationship Status Dates Dr. Mihcael Puga DO Primary Care Provider Active Start: [...] October 23, 2024 End: October 23, 2024 Washtub Worker Helper Relationship Specialty Start Date End Date Michael Puga DO [address] [place] [address] PCP - General Family Medicine 05/06/16 Asia Rosales, CENTRIFUGE 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 [address] [place] [address] Closet Builder [facility] 04/09/24 Isela Barton, CENTRIFUGE 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 [address] [place] [address] Closet Builder [facility] 10/16/24 Team Status: Inactive Member Role/Relationship Status [...] November 30, 2024 Dr. Virgil Tyler , Emergency Provider Active Start: November 30, 2024 [...] 2024 End: November 26, 2024 Dr. Gallo Hcikey MD Attending Provider Active S tart: November [...] Provider Active Start: November 30, 2024 Dr. Vigril Tyler DO Emergency Provider Active Start: November [...] Active Star t: December 05, 2024 Dr. Radha Munoz DO Attending Provider [...] Other Provider Active Start: December 14, 2024 Washtub Worker Helper Relationship Specialty Start Date End Date Michael Puga DO [address] [place] [address] PCP - General Family Medicine 05/06/16 Asia Rosales, CENTRIFUGE 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 [address] [place], [place] [address] [facility] 04/09/24 Isela Barton, CENTRIFUGE 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 [address] [place], [place] [address] [facility] 10/16/24 Washtub Worker Helper Relationship Specialty Start Date End Date Michael Puga DO [address] [place] [address] PCP - General Family Medicine 05/06/16 Asia Rosales, CENTRIFUGE 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 [address] [place] [address] Closet Builder [facility] 04/09/24 Isela Barton, CENTRIFUGE 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 [address] [place] [address] [facility]24 Washtub Worker Helper Relationship Specialty Start Date End Date Michael Puga DO [address] [place] [address] PCP - General Family Medicine 05/06/16 SherryAsia, CENTRIFUGE 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 [address] [place] [address] [facility] 04/09/24 Isela Barton, CENTRIFUGE 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 [address] [place], [place] [address] [facility] 10/16/24 Team Status: Active Member Role/Relationship Status Dates Karen CENTENO APPLIQUE CUTTER-C Primary Care Provider Activ e Team Status: Inactive Member Role/Relationship Status Dates Dr. Michael Puga DO Primary Care Provider Active Start: November 26, 2024 End: November 26, 2024 Dr. Gallo Hickey MD Attending Provider Active S tart: November 26, 2024 End: November 26, 2024 Dr. Gallo Hickey MD Referring Provider Active S tart: November 26, 2024 End: November 26, 2024 Team Status: Active Member Role/Relationship Status Dates Dr. Michael Puga DO Primary Care Provider Active Start: December 20, 2024 Karen CENTENO APPLIQUE CUTTER-C Attending Provider Active Start: December 20, 2024 Karen Johnson VSC, APPLIQUE CUTTER-C Referring Provider Active Start: December 20, 2024 Team Status: Inactive Member Role/Relationship Status Dates Arley [place] MD Emergency Provider Active Star t: December 23, 2024 End: December 23, 2024 Karen NUNEZC, APPLIQUE CUTTER-C Primary Care Provider Activ e Start: December 23, 2024 End: December 23, 2024 Team Status: Inactive Member Role/Relationship Status Dates Dr. Michael Puga DO Primary Care Provider Active Start: December 20, 2024 End: December 20, 2024 Karen Johnson VSC, APPLIQUE CUTTER-C Attending Provider Active Start: December 20, 2024 End: December 20, 2024 Karen Alex MAYRAC, APPLIQUE CUTTER-C Referring Provider Active Start: December 20, 2024 End: December 20, 2024 Team Status: Inactive Member Role/Relationship Status Dates Dr. Michael Puga DO Referring Provider Active Start: December 27, 2024 End: December 27, 2024 Anabel Horne PA, PA Attending Provider Active Start: December 27, 2024 End: December 27, 2024 Karen NUNEZC, APPLIQUE CUTTER-C Primary Care Provider Activ e Start: December 27, 2024 End: December 27, 2024 Team Status: Inactive Member Role/Relationship Status Dates Arley [place] MD Attending Provider Active Star t: December 23, 2024 End: December 23, 2024 Arley [place] MD Emergency Provider Active Star t: December 23, 2024 End: December 23, 2024 Karen Alex VSC, APPLIQUE CUTTER-C Primary Care Provider Activ e Start: December 23, 2024 End: December 23, 2024 Team Status: Active Member Role/Relationship Status Dates Karen NUNEZC, APPLIQUE CUTTER-C Primary Care Provider Activ e Start: December 29, 2024 Dr. Cheryl Garcia MD Emergency Provider Active S tart: December 29, 2024 Dr. Len [place] MD Admit Provider Active Sta rt: December 29, 2024 Dr. Len [place] MD Attending Provider Active Start: December 29, 2024 Team Status: Inactive Member Role/Relationship Status Dates Karen Alex VSC, APPLIQUE CUTTER-C Primary Care Provider Activ e Start: December 29, 2024 End: January 01, 2025 Dr. Cheryl Garcia MD Emergency Provider Active S tart: December 29, 2024 End: January 01, 2025 Dr. Len [place] MD Admit Provider Active Sta rt: December 29, 2024 End: January 01, 2025 Dr. Len [place] MD Other Provider Active Sta rt: December 29, 2024 End: January 01, 2025 Dr. Jonny Vicente MD Attending Provider Active Start: December 29, 2024 End: January 01, 2025 Team Status: Active Member Role/Relationship Status Dates Karen CENTENO, APPLIQUE CUTTER-C Primary Care Provider Activ e Start: December 29, 2024 Dr. Cheryl Garcia MD Emergency Provider Active S tart: December 29, 2024 Dr. Len [place] MD Admit Provider Active Sta rt: December 29, 2024 Dr. Len [place] MD Attending Provider Active Start: December 29, 2024 Dr. Len [place] MD Other Provider Active Sta rt: December 29, 2024 Team Status: Active Member Role/Relationship Status Dates Karen CENTENO, APPLIQUE CUTTER-C Primary Care Provider Activ e Start: December 30, 2024 Dr. Cheryl Garcia MD Emergency Provider Active S tart: December 30, 2024 Dr. Len [place] MD Admit Provider Active Sta rt: December 30, 2024 Dr. Len [place] MD Other Provider Active Sta rt: December 30, 2024 Dr. Jonny Vicente MD Attending Provider Active Start: December 30, 2024 Dr. Jonny Vicente MD Other Provider Active Start: December 30, 2024 Team Status: Active Member Role/Relationship Status Dates Karen CENTENO, APPLIQUE CUTTER-C Primary Care Provider Activ e Start: December 31, 2024 Dr. Cheryl Garcia MD Emergency Provider Active S tart: December 31, 2024 Dr. Len [place] MD Admit Provider Active Sta rt: December 31, 2024 Dr. Len [place] MD Other Provider Active Sta rt: December 31, 2024 Dr. Jonny Vicente MD Attending Provider Active Start: December 31, 2024 Dr. Jonny Vicente MD Other Provider Active Start: December 31, 2024 Team Status: Active Member Role/Relationship Status Dates Karen CENTENO, APPLIQUE CUTTER-C Primary Care Provider Activ e Start: January 01, 2025 Dr. Cheryl Garcia MD Emergency Provider Active S tart: January 01, 2025 Dr. Len [place] MD Admit Provider Active Sta rt: January 01, 2025 Dr. Len [place] MD Other Provider Active Sta rt: January 01, 2025 Dr. Jonny Vicente MD Attending Provider Active Start: January 01, 2025 Dr. Jonny Vicente MD Other Provider Active Start: January 01, 2025 Washtub Worker Helper Relationship Specialty Start Date End Date Michael Puga DO [address] [place], [place] [address] PCP - General Family Medicine 05/06/16 Asia Rosales, CENTRIFUGE 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 [address] [place], [place] [address] Closet [facility] 04/09/24 Isela Barton, CENTRIFUGE 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 [address] [place], [place] [address] Closet Builder [facility] 10/16/24 Team Status: Active Member Role/Relationship Status Dates Karen CENTENO, APPLIQUE CUTTER-C Primary care physician Acti ve Team Status: Inactive Member Role/Relationship Status Dates Dr. Michael Puga DO Primary care physician Active Start: October 16, 2024 End: October 16, 2024 Dr. Gallo Hickey MD Attending physician Active Start: October 16, 2024 End: October 16, 2024 Dr. Gallo Hickey MD Referring Provider Active S tart: October 16, 2024 End: October 16, 2024 Team Status: Inactive Member Role/Relationship Status Dates Dr. Michael Puga DO Primary care physician Active Start: October 23, 2024 End: October 23, 2024 Dr. Gallo Hickey MD Attending physician Active Start: October 23, 2024 End: October 23, 2024 Dr. Gallo Hickey MD Referring Provider Active S tart: October 23, 2024 End: October 23, 2024 Team Status: Inactive Member Role/Relationship Status Dates Dr. Michael Puga DO Primary care physician Active Start: October 27, 2024 End: October 27, 2024 Dr. Gallo Hickey MD Attending physician Active Start: October 27, 2024 End: October 27, 2024 Dr. Gallo Hickey MD Referring Provider Active S tart: October 27, 2024 End: October 27, 2024 Team Status: Inactive Member Role/Relationship Status Dates Dr. Michael Puga DO Primary care physician Active Start: October 31, 2024 End: October 31, 2024 Anabel ALVA PA Attending physician Active Start: October 31, 2024 End: October 31, 2024 Anabel ALVA PA Referring Provider Active Start: October 31, 2024 End: October 31, 2024 Team Status: Inactive Member Role/Relationship Status Dates Dr. Michael Puga DO Primary care physician Active Start: November 02, 2024 End: November 02, 2024 Dr. Michael Puga DO Referring Provider Active Start: November 02, 2024 End: November 02, 2024 Anabel ALVA PA Attending physician Active Start: November 02, 2024 End: November 02, 2024 Team Status: Inactive Member Role/Relationship Status Dates Dr. Michael Puga DO Primary care physician Active Start: November 26, 2024 End: November 26, 2024 Dr. Gallo Hickey MD Attending physician Active Start: November 26, 2024 End: November 26, 2024 Dr. Gallo Hickey MD Referring Provider Active S tart: November 26, 2024 End: November 26, 2024 Team Status: Inactive Member Role/Relationship Status Dates Dr. Michael Puga DO Primary care physician Active Start: November 29, 2024 End: December 03, 2024 Dr. Virgil Tyler , DO Emergency Departm ent Physician Active Start: November 29, 2024 End: December 03, 2024 Dr. Tacho Davis , DO Admitting physician Active Start: November 29, 2024 End: December 03, 2024 Dr. Tacho Davis , Nurse Practitioner Active Start: November 29, 2024 End: December 03, 2024 Dr. Waleska Phillips MD Attending physician Active Start: November 29, 2024 End: December 03, 2024 Dr. Jonny Vicente MD Nurse Practitioner Active Start: November 29 End: December 03, 2024 Team Status: Active Member Role/Relationship Status Dates Dr. Michael Puga DO Primary care physician Active Start: November 30, 2024 Dr. aGllo Hickey MD Attending physician Active Start: November 30, 2024 Team Status: Active Member Role/Relationship Status Dates Dr. Michael Puga DO Primary care physician Active Start: November 30, 2024 Dr. Virgil Tyler , DO Emergency Department Physician Active Start: November 30, 2024 Dr. Tacho Davis DO Admitting physician Active Start: November 30, 2024 Dr. Tacho Davis DO Nurse Practitioner Active Start: November 30, 2024 Dr. Jonny Vicente MD Attending physician Active Start: November 30 Dr. Jonny Vicente MD Nurse Practitioner Active Start: November 30 Team Status: Active Member Role/Relationship Status Dates Dr. Michael Puga DO Primary care physician Active Start: December 01, 2024 Dr. Virgil Tyler , DO Emergency Departm ent Physician Active Start: December 01, 2024 Dr. Tacho Davis DO Admitting physician Active Start: December 01, 2024 Dr. Tacho Davis DO Nurse Practitioner Active Start: December 01, 2024 Dr. Waleska Phillips MD Attending physician Active Start: December 01, 2024 Dr. Waleska Phillips MD Nurse Practitioner Active Start: December 01, 2024 Dr. Jonny Vicente MD Nurse Practitioner Active Start: December 01 Team Status: Active Member Role/Relationship Status Dates Dr. Michael Puga DO Primary care physician Active Start: December 02, 2024 Dr. Virgil Tyler , DO Emergency Departm ent Physician Active Start: December 02, 2024 Dr. Tacho Davis DO Admitting physician Active Start: December 02, 2024 Dr. Tacho Davis , DO Nurse Practitioner Active Start: December 02, 2024 Dr. Waleska Phillips MD Attending physician Active Start: December 02, 2024 Dr. Waleska Phillips MD Nurse Practitioner Active Start: December 02, 2024 Dr. Jonny Vicente MD Nurse Practitioner Active Start: December 02 Team Status: Active Member Role/Relationship Status Dates Dr. Michael Puga DO Primary care physician Active Start: December 03, 2024 Dr. Virgil Tyler DO Emergency Depart ent Physician Active Start: December 03, 2024 Dr. Tacho Davis DO Admitting physician Active Start: December 03, 2024 Dr. Tacho Davis DO Nurse Practitioner Active Start: December 03, 2024 Dr. Waleska Phillips MD Attending physician Active Start: December 03, 2024 Dr. Waleska Phillips MD Nurse Practitioner Active Start: December 03, 2024 Dr. Jonny Vicente MD Nurse Practitioner Active Start: December 03 Team Status: Inactive Member Role/Relationship Status Dates Dr. Michael Puga DO Primary care physician Active Start: December 03, 2024 End: December 14, 2024 Dr. Tavares Anthony MD Admitting physician Active Start: December 03, 2024 End: December 14, 2024 Dr. Tavares Anthony MD Nurse Practitioner Active Start: December 03, 2024 End: December 14, 2024 Dr. Radha Munoz DO Attending physician Active Start: December 03 End: December 14, 2024 Team Status: Active Member Role/Relationship Status Dates Dr. Michael Puga DO Primary care physician Active Start: December 04, 2024 Dr. Tavares Anthony MD Admitting physician Active Start: December 04, 2024 Dr. Tavares Anthony MD Nurse Practitioner Active Start: December 04, 2024 Dr. Radha Munoz DO Attending physician Ac tive Start: December 04, 2024 Dr. Radha Munoz DO Nurse Practitioner Act gayle Start: December 04, 2024 Team Status: Active Member Role/Relationship Status Dates Dr. Michael Puga DO Primary care physician Active Start: December 05, 2024 Dr. Tavares Anthony MD Admitting physician Active Start: December 05, 2024 Dr. Tavares Antohny MD Nurse Practitioner Active Start: December 05, 2024 Dr. Rdaha Munoz DO Attending physician Ac tive Start: December 05, 2024 Dr. Radha Munoz DO Nurse Practitioner Act gayle Start: December 05, 2024 Team Status: Active Member Role/Relationship Status Dates Dr. Michael Puga DO Primary care physician Active Start: December 06, 2024 Dr. Tavares Anthony MD Admitting physician Active Start: December 06, 2024 Dr. Tavares Anthony MD Nurse Practitioner Active Start: December 06, 2024 Dr. Radha Munoz DO Attending physician Ac tive Start: December 06, 2024 Dr. Radha Munoz DO Nurse Practitioner Act gayle Start: December 06, 2024 Team Status: Active Member Role/Relationship Status Dates Dr. Michael Puga DO Primary care physician Active Start: December 07, 2024 Dr. Tavares Anthony MD Admitting physician Active Start: December 07, 2024 Dr. Tavares Anthony MD Nurse Practitioner Active Start: December 07, 2024 Dr. Radha Munoz DO Attending physician Ac tive Start: December 07, 2024 Dr. Radha Munoz DO Nurse Practitioner Act gayel Start: December 07, 2024 Team Status: Active Member Role/Relationship Status Dates Dr. Michael Puga DO Primary care physician Active Start: December 11, 2024 Dr. Tavares Anthony MD Admitting physician Active Start: December 11, 2024 Dr. Tavares Anthony MD Nurse Practitioner Active Start: December 11, 2024 Dr. Radha Munoz DO Attending physician Active Start: December 11, 2024 Dr. Radha Munoz DO Nurse Practitioner Active Start: December 11, 2024 Team Status: Active Member Role/Relationship Status Dates Dr. Michael Puga DO Primary care physician Active Start: December 12, 2024 Dr. Tavares Anthony MD Admitting physician Active Start: December 12, 2024 Dr. Tavares Anthony MD Nurse Practitioner Active Start: December 12, 2024 Dr. Radha Munoz DO Attending physician Active Start: December 12, 2024 Dr. Radha Munoz DO Nurse Practitioner Active Start: December 12, 2024 Team Status: Active Member Role/Relationship Status Dates Dr. Michael Puga DO Primary care physician Active Start: December 14, 2024 Dr. Tavares Anthony MD Admitting physician Active Start: December 14, 2024 Dr. Tavares Anthony MD Nurse Practitioner Active Start: December 14, 2024 Dr. Radha Munoz DO Attending physician Active Start: December 14, 2024 Dr. Radha Munoz DO Nurse Practitioner Active Start: December 14, 2024 Team Status: Inactive Member Role/Relationship Status Dates Dr. Michael Puga DO Primary care physician Active Start: December 20, 2024 End: December 20, 2024 Karen CENTENO, APPLIQUE CUTTER-C Attending physician Active Start: December 20, 2024 End: December 20, 2024 Karen CENTENO, APPLIQUE CUTTER-C Referring Provider Active Start: December 20, 2024 End: December 20, 2024 Team Status: Inactive Member Role/Relationship Status Dates Arley Manuel MD Attending physician Active Sta rt: December 23, 2024 End: December 23, 2024 Arley Manuel MD Emergency Department Physician Active Start: December 23, 2024 End: December 23, 2024 Karen CENTENO, APPLIQUE CUTTER-C Primary care physician Acti ve Start: December 23, 2024 End: December 23, 2024 Team Status: Inactive Member Role/Relationship Status Dates Dr. Michael Puga DO Referring Provider Active Start: December 27, 2024 End: December 27, 2024 Anabel Horne PA, PA Attending physician Active Start: December 27, 2024 End: December 27, 2024 Karen CENTENO, APPLIQUE CUTTER-C Primary care physician Acti ve Start: December 27, 2024 End: December 27, 2024 Team Status: Inactive Member Role/Relationship Status Dates Karen CENTENO, APPLIQUE CUTTER-C Primary care physician Active Start: December End: January 01, 2025 Dr. Cheryl Garcia MD Emergency Departmen t Physician Active Start: December 29, 2024 End: January 01, 2025 Dr. Len Nicolas MD Admitting physician Active Start: December 29, 2024 End: January 01, 2025 Dr. Len Nicolas MD Nurse Practitioner Active Start: December 29, 2024 End: January 01, 2025 Dr. Jonny Vicente MD Attending physician Active Start: December 29, 2024 End: January 01, 2025 Team Status: Active Member Role/Relationship Status Dates Karen Johnson JACOBO, APPLIQUE CUTTER-C Primary care physician Acti ve Start: December 29, 2024 Dr. Cheryl Garcia MD Emergency Departmen t Physician Active Start: December 29, 2024 Dr. Len Nicolas MD Admitting physician Active Start: December 29, 2024 Dr. Len Nicolas MD Attending physician Active Start: December 29, 2024 Dr. Len Nicolas MD Nurse Practitioner Active Start: December 29, 2024 Team Status: Active Member Role/Relationship Status Dates Karen Alex CENTENO, APPLIQUE CUTTER-C Primary care physician Acti ve Start: December 30, 2024 Dr. Cheryl Garcia MD Emergency Departmen t Physician Active Start: December 30, 2024 Dr. Len Nicolas MD Admitting physician Active Start: December 30, 2024 Dr. Len Nicolas MD Nurse Practitioner Active Start: December 30, 2024 Dr. Jonny Vicente MD Attending physician Active Start: December 30, 2024 Dr. Jonny Vicente MD Nurse Practitioner Active Start: December 30, 2024 Team Status: Active Member Role/Relationship Status Dates Karen Alex CENTENO, APPLIQUE CUTTER-C Primary care physician Acti ve Start: December 31, 2024 Dr. Cheryl Garcia MD Emergency Departmen t Physician Active Start: December 31, 2024 Dr. Len Nicolas MD Admitting physician Active Start: December 31, 2024 Dr. Len Nicolas MD Nurse Practitioner Active Start: December 31, 2024 Dr. Jonny Vicente MD Attending physician Active Start: December 31, 2024 Dr. Jonny Vicente MD Nurse Practitioner Active Start: December 31, 2024 Team Status: Active Member Role/Relationship Status Dates Karen Alex CENTENO, APPLIQUE CUTTER-C Primary care physician Active Start: January 01, 2025 Dr. Cheryl Garcia MD Emergency Departmen t Physician Active Start: January 01, 2025 Dr. Len Nicolas MD Admitting physician Active Start: January 01, 2025 Dr. Len Nicolas MD Nurse Practitioner Active Start: January 01, 2025 Dr. Jonny Vicente MD Attending physician Active Start: January Dr. Jonny Vicente MD Nurse Practitioner Active Start: January Team Status: Inactive Member Role/Relationship Status Dates Karen NUNEZC, APPLIQUE CUTTER-C Primary care physician Acti ve Start: January 05, 2025 End: January 05, 2025 Karen Johnson VSC, APPLIQUE CUTTER-C Attending physician Active Start: January 05, 2025 End: January 05, 2025 Karen Johnson VSC, APPLIQUE CUTTER-C Referring Provider Active Start: January 05, 2025 End: January 05, 2025 Team Status: Active Member Role/Relationship Status Dates Karen Johnson VSC, APPLIQUE CUTTER-C Primary care physician Acti ve Start: January 23, 2025 Karen Johnson VSC, APPLIQUE CUTTER-C Attending physician Active Start: January 23, 2025 Team Status: Inactive Member Role/Relationship Status Dates Karen Johnson VSC, APPLIQUE CUTTER-C Primary care physician Acti ve Start: January 26, 2025 End: January 26, 2025 Dr. Gallo Hickey MD Attending physician Active Start: January 26, 2025 End: January 26, 2025 Team Status: Inactive Member Role/Relationship Status Dates Karen Johnson VSC, APPLIQUE CUTTER-C Primary care physician Acti ve Start: January 23, 2025 End: January 23, 2025 Karen Johnson VSC, APPLIQUE CUTTER-C Attending physician Active Start: January 23, 2025 End: January 23, 2025 Team Status: Active Member Role/Relationship Status Dates Karennati Johnson VSC, APPLIQUE CUTTER-C Primary care physician Acti ve Start: February 05, 2025 Karen Johnson VSC, APPLIQUE CUTTER-C Referring Provider Active Start: February 05, 2025 Yuki Harris Attending physician Active Start: February 05, 2025 Team Status: Inactive Member Role/Relationship Status Dates Karen Johnson VSC, APPLIQUE CUTTER-C Primary care physician Acti ve Start: February 05, 2025 End: February 05, 2025 Karen Johnson VSC, APPLIQUE CUTTER-C Referring Provider Active Start: February 05, 2025 End: February 05, 2025 Kristal Watkins NP, APPLIQUE CUTTER-C Attending physician Active Start: February 05, 2025 End: February 05, 2025 Team Status: Active Member Role/Relationship Status Dates Karen Alex NUNEZC, APPLIQUE CUTTER-C Primary care physician Acti ve Start: February 05, 2025 Kristal Watkins APPLIQUE CUTTER, APPLIQUE CUTTER-C Attending physician Active Start: February 05, 2025 Kristal Watkins APPLIQUE CUTTER, APPLIQUE CUTTER-C Referring Provider Active Start: February 05, 2025 Team Status: Inactive Member Role/Relationship Status Dates Karen Johnson VSC, APPLIQUE CUTTER-C Primary care physician Acti ve Start: February 05, 2025 End: February 05, 2025 Dr. Gallo Hickey MD Attending physician Active Start: February 05, 2025 End: February 05, 2025 Team Status: Inactive Member Role/Relationship Status Dates Karen Johnson VSC, APPLIQUE CUTTER-C Primary care physician Acti ve Start: February 05, 2025 End: February 05, 2025 Karen Johnson VSC, APPLIQUE CUTTER-C Referring Provider Active Start: February 05, 2025 End: February 05, 2025 Yuki Harris Attending physician Active Start: February 05, 2025 End: February 05, 2025 Team Status: Inactive Member Role/Relationship Status Dates Karen Alex VSC, APPLIQUE CUTTER-C Primary care physician Acti ve Start: February 05, 2025 End: February 05, 2025 Karen Johnson VSC, APPLIQUE CUTTER-C Referring Provider Active Start: February 05, 2025 End: February 05, 2025 Kristal Watkins APPLIQUE CUTTER, APPLIQUE CUTTER-C Attending physician Active Start: February 05, 2025 End: February 05, 2025 Team Status: Active Member Role/Relationship Status Dates Karen Johnson VSC, APPLIQUE CUTTER-C Primary care physician Acti ve Start: February 05, 2025 Kristal Watkins NP, APPLIQUE CUTTER-C Attending physician Active Start: February 05, 2025 Kristal Watkins APPLIQUE CUTTER, APPLIQUE CUTTER-C Referring Provider Active Start: February 05, 2025 Goals (unrecognized section and content) Goals may [...] BE BASED ON THE PRIMARY CLINICAL RECORDS. [facility]. provides no warranty or guarantee of the accuracy or completeness of information in this document.
--- NOTE | 2025-03-20 17:21 | STRESSREP ---
Stress Test Report Pharmacologic myocardial perfusion stress test. 84-year-old female with a history of SOB. Resting EKG demonstrates [atrial paced] with a rate of 60 bpm. Resting blood pressure is 144/62 mmHg. 0.4 mg of regadenoson was infused per usual protocol followed by rapid intravenous saline flush injection. Continuous EKG monitoring was performed. The maximum heart rate was 96 bpm which was 70% of max impacted heart rate the maximum workload was 1 metabolic equivalent. At rest there were no ST or T wave changes noted to suggest ischemia and at peak infusion nonspecific ST changes were noted which did not meet the criteria for ischemia. No clinical angina is noted. The final blood pressure was 140/58mmHg. Myocardial perfusion protocol. 14.4 mCi of technetium 99m sestamibi was injected at rest. 0.4 mg of regadenoson was infused per usual protocol. At peak infusion 44.1 mCi of technetium 99m sestamibi was injected stress images were obtained stress and rest images were reconstructed and compared in the short axis vertical long and horizontal long axis. Gated images were also obtained. Perfusion SPECT analysis: Review of the stress images demonstrate normal uptake of tracer noted in all areas of the myocardium. The resting images similar demonstrated normal uptake of tracer noted in all areas of the myocardium. No areas of reversibility are noted to suggest ischemia and no previous infarct is noted. Gated SPECT analysis: The gated ejection fraction is 79%. Conclusion: Normal pharmacologic myocardial perfusion stress test. Normal ejection fraction.
== END | disposition home or self-care (01) ==
LOC: CVS 06:03
PROVIDERS: PCP Nurse Practitioner Family; Referring Provider Nurse Practitioner Gerontology; Visit Provider Nurse Practitioner Gerontology
DX: R06.02 Shortness of breath (principal); R53.83 Other fatigue
CPT/HCPCS: 78452; 93017; A9500; A4216; J2785

== ENCOUNTER → 2025-04-24 | Outpatient (CLI) | payer MEDICARE, OTHER, SELFPAY ==
[2025-04-24 16:43] LABS: Hematocrit 35.6 % (37-47); Hemoglobin 11.3 g/dL (12.0-15.0); Immature Granulocytes Count 0.020 X10^3/uL (0.0-0.0); Mean Corp Hgb Conc 31.7 g/dL (32-36); Mean Corpuscular Volume 94.4 fL (81-99); Mean Platelet Vol. 11.1 fl (6.2-12.0); NRBC Flagged by Analyzer 0 % (0-5); Platelet Count 201 K/mm3 (150-450); RBC Distribution Width CV 15.5 % (11.6-14.6); RBC Distribution Width SD 53.4 fl (35.1-43.9); Red Blood Count 3.77 M/mm3 (4.2-5.4); White Blood Count 8.1 K/mm3 (4.4-11.0)
[2025-04-24 17:44] LABS: AST(SGOT) 53 U/L (<=31); Alanine Aminotransfer ALT/SGPT 56 U/L (<=34); Albumin, Serum 4.2 g/dL (3.4-4.8); Alkaline Phosphatase 73 U/L (35-104); Anion Gap 10 (7-18); BUN 35 mg/dL (4-19); BUN/Creat Ratio 28.0 RATIO (10-20); Calcium,Total 9.5 mg/dL (7.6-11.0); Carbon Dioxide 24.4 mmol/L (20.0-29.0); Chloride 103 mmol/L (96-106); Globulin 2.4 g/dL (2.2-4.2); Glucose 91 mg/dL (70-99); Potassium 4.5 mmol/L (3.5-5.1); Vitamin B12 928 pg/mL (180-914); Vitamin D,25 Hydroxy 28.8 ng/mL (30-100)
== END | disposition home or self-care (01) ==
LOC: VSLAB 10:58
PROVIDERS: PCP Nurse Practitioner Family; Referring Provider Nurse Practitioner Family; Visit Provider Nurse Practitioner Family
DX: E03.9 Hypothyroidism, unspecified (principal); D64.9 Anemia, unspecified; R73.03 Prediabetes; E56.9 Vitamin deficiency, unspecified
CPT/HCPCS: 36415; 80053; 82306; 82607; 83036; 84439; 84443; 85025